=== PATIENT | female | born 1980 | race Caucasian/White ===

== ENCOUNTER → 2017-03-07 | Outpatient (CLI) | payer MEDICARE, OTHER ==
--- NOTE | 2017-03-07 17:00 | US ---
EXAMINATION TYPE: US venous doppler duplex UE LT DATE OF EXAM: 03/07/2017 4:47 PM COMPARISON: NONE CLINICAL HISTORY: M79.632 Pain L forearm. Palpable reddened, area seen x 4 days, very painful SIDE PERFORMED: Left Left Arm: Appears negative for DVT mixed collection seen just under the surface of the skin with obvious tract to skin line, probable abscess. IMPRESSION: 1. Left upper extremity appears without evidence of deep venous thrombosis. 2. There is subcutaneous heterogenous low density collections which could be early phlegmon or develo ping abscess at the level of the palpable region. Correlate with symptoms.
== END ==
LOC: RADUSWWP 16:10
PROVIDERS: ATTEND Family Medicine
DX: M79.632 Pain in left forearm (principal)

== ENCOUNTER 2017-03-09 09:05 | Emergency (ER) | payer MEDICARE, OTHER ==
[2017-03-09 09:23] VITALS: BP 158/94; PULSE 79; RESP 18; TEMP 99
--- NOTE | 2017-03-09 09:40 | ED ---
Skin/Abscess/FB HPI - General Chief complaint: Skin/Abscess/Foreign Body Stated complaint: ABSCESS ON ARM Time Seen by Provider: 03/09/17 09:26 Source: patient, RN notes reviewed Mode of arrival: wheelchair Limitations: no limitations - History of Present Illness Initial comments: 36-year-old female presents emergency Department chief complaint left arm abscess. Patient states started a few days ago. Patient had an ultrasound signs of infection. Patient started Keflex with no improvement. They did not I &D her abscess. Patient states that she has an ALLERGY to sulfa products though she has no history of MRSA. Patient denies fever, chills. She states it is increased redness approximately 2 cm in size. - Related Data Home Medications Medication Instructions Recorded Confirmed Omeprazole [PriLOSEC] 20 mg PO QAM 12/21/15 08/12/16 Pravastatin Sodium [Pravachol] 40 mg PO HS 01/24/16 08/12/16 Cyanocobalamin [Vitamin B-12] 2,000 mcg PO DAILY 01/25/16 08/12/16 Ondansetron HCl [Zofran] 8 mg PO Q8H PRN 01/25/16 08/12/16 Cyclobenzaprine [Flexeril] 10 mg PO TID 07/14/16 08/12/16 Famotidine [Pepcid] 20 mg PO BID 07/14/16 08/12/16 Ferrous Sulfate [Iron (65 MG 325 mg PO BID 07/14/16 08/12/16 Elemental)] Midodrine [ProAmatine] 5 mg PO AC-TID 07/14/16 08/12/16 Nadolol 40 mg PO DAILY 07/14/16 08/12/16 Valproic Acid 500 mg PO Q12H 07/14/16 08/12/16 Warfarin [Coumadin] 2.5 mg PO DAILY 07/14/16 08/12/16 Metoclopramide [Reglan] 10 mg PO ACHS 08/08/16 08/12/16 Morphine Sulfate ER [Ms Contin] 15 mg PO Q12HR 08/08/16 08/12/16 Previous Rx's Medication Instructions Recorded Albuterol Nebulized [Ventolin 2.5 mg INHALATION RT-QID PRN #0 08/12/16 Nebulized] nebu Cyclobenzaprine [Flexeril] 10 mg PO TID #90 tab 08/12/16 Desvenlafaxine Succinate [Pristiq 50 mg PO DAILY #30 tab.er.24h 08/12/16 ER] HYDROcodone/APAP 5-325MG [[place] 1 each PO Q8HR PRN #0 tab 08/12/16 5-325] LORazepam [Ativan] 0.5 mg PO QID #30 tab 08/12/16 Levothyroxine Sodium [Synthroid] 250 mcg PO DAILY #90 tab 08/12/16 Nadolol [Corgard] 40 mg PO DAILY #30 tab 08/12/16 Ondansetron [Zofran] 8 mg PO Q8HR PRN #0 tab 08/12/16 QUEtiapine [SEROquel] 100 mg PO HS #30 tab 08/12/16 Warfarin [Coumadin] 2.5 mg PO 1800 #30 tab 08/12/16 lamoTRIgine [LaMICtal] 100 mg PO TID #90 tab 08/12/16 Acetaminophen-Codeine 300-30mg 1 tab PO Q4H PRN #20 tablet 03/09/17 [Tylenol #3] Clindamycin HCl 300 mg PO Q6HR #40 cap 03/09/17 Allergies Allergy/AdvReac Type Severity Reaction Status Date / Time barium sulfate Allergy Anaphylaxis Verified 08/09/16 06:02 doxepin [Doxepin] Allergy Anaphylaxis Verified 08/09/16 06:02 influenza virus vaccine, Allergy Rash/Hives Verified 08/09/16 06:02 specific [Influenza Virus Vacc,Specific] Iodinated Contrast Media - Allergy Unknown Verified 08/09/16 06:02 Oral and [Iodinated Contrast Media - IV Dye] promethazine HCl Allergy Anaphylaxis Verified 08/09/16 06:02 [From Phenergan] sulfamethoxazole Allergy Rash/Hives Verified 08/09/16 06:02 [From Bactrim] trimethoprim [From Bactrim] Allergy Rash/Hives Verified 08/09/16 06:02 Pertussis Vaccines AdvReac fever/seizu Verified 08/09/16 06:02 re pseudoephedrine AdvReac Chest Pain Verified 08/09/16 06:02 pseudoephedrine HCl AdvReac Chest Pain Verified 08/09/16 06:02 [From Sudafed] Review of Systems ROS Statement: Those systems with pertinent positive or pertinent negative responses have been documented in the HPI. ROS Other: All systems not noted in ROS Statement are negative. Past Medical History Past Medical History: Chest Pain / Angina, CVA/TIA, Deep Vein Thrombosis (DVT), Neurologic Disorder, Syncope, Thyroid Disorder Additional Past Medical History / Comment(s): "Dysautonomia-progressive neurological disorder, lupus/LUPUS ANTICOAGULANTS, ana maria's disease, lymphedema Lt arm, v-tach, pituitary microadenoma. "mitochondrial disease". patent foramen ovale. uti's, falls, orthostatic hypotension/syncope,migraine, polycystic ovarian syndrome,neuropathy. Patient states that she gets "Hemipalegic Migraines" around the time that her period would be. Uterine ablation August 2015. Patient no longer has periods. History of Any Multi-Drug Resistant Organisms: None Reported Past Surgical History: Uterine Ablation Additional Past Surgical History / Comment(s): colonscopy/egd, angie, stress test. Past Anesthesia/Blood Transfusion Reactions: No Reported Reaction Additional Past Anesthesia/Blood Transfusion Reaction / Comment(s): patient states "It takes a lot of anesthesia for my body to react" Past Psychological History: Bipolar, Depression Additional Psychological History / Comment(s): attempted suicide 04/05 Smoking Status: Never smoker Past Alcohol Use History: None Reported Additional Past Alcohol Use History / Comment(s): Patient is a lifelong nonsmoker. She denies any medical marijuana, marijuana, street drug or alcohol use. She is single and does not have any children. Past Drug Use History: None Reported - Past Family History Brother(s) Family Medical History: Hyperlipidemia, Hypertension Additional Family Medical History / Comment(s): Patient states she has 1 brother with no major medical problems. Father Family Medical History: Hyperlipidemia, Hypertension Additional Family Medical History / Comment(s): DAD IS 70 YEARS OLD. Patient states she does not have any contact with her father and does not know his medical history. Mother Family Medical History: Chest Pain / Angina, CVA/TIA, Hyperlipidemia, Hypertension Additional Family Medical History / Comment(s): AGE 62 HAS LUPUS, blood pressure swings high to low General Exam Limitations: no limitations General appearance: alert, in no apparent distress Respiratory exam: Present: normal lung sounds bilaterally. Absent: respiratory distress, wheezes, rales, rhonchi, stridor Cardiovascular Exam: Present: regular rate, normal rhythm, normal heart sounds. Absent: systolic murmur, diastolic murmur, rubs, gallop, clicks Extremities exam: Present: other (Left forearm there is a 2 cm region of erythema with tenderness there is a papule/pustule noted in the center that is minimally fluctuant) Course Vital Signs 03/09/17 03/09/17 09:21 09:28 Temperature 99.0 F 99.0 F Pulse Rate 79 79 Respiratory 18 18 Rate Blood Pressure 158/94 158/94 O2 Sat by Pulse 82 L 98 Oximetry Procedures - Incision & Drainage Indication: Left arm abscess Site: upper extremity (Left forearm) Size (cm): 2 Anesthetic Used: lidocaine 1%, without epi I&D Cleaning Method: Chloroprep Sterile Field Used?: Yes Scalpel Used: #11 I&D Drainage Obtained: Pus, Blood Culture Obtained?: Yes Patient Tolerated Procedure: well, no complications Medical Decision Making - Medical Decision Making 36-year-old female presented for left arm abscess. Patient said increasing redness after starting Keflex. Patient was switched to clindamycin for possible MRSA infection. Patient's abscess was opened she'll continue warm compresses return parameters were discussed. Disposition Clinical Impression: Abscess of left arm Disposition: HOME SELF-CARE Condition: Stable Instructions: Abscess Incision and Drainage (ED) Additional Instructions: Please return to the Emergency Department if symptoms worsen or any other concerns. Continue warm compresses as directed. Prescriptions: Acetaminophen-Codeine 300-30mg [Tylenol #3] 1 tab PO Q4H PRN #20 tablet PRN Reason: pain Clindamycin HCl 300 mg PO Q6HR #40 cap Time of Disposition: 09:40
== END 2017-03-09 10:11 | disposition home or self-care (01) ==
LOC: EC 09:05
DX: L02.414 Cutaneous abscess of left upper limb (principal); F31.9 Bipolar disorder, unspecified; Z79.01 Long term (current) use of anticoagulants; Z79.891 Long term (current) use of opiate analgesic; Z79.899 Other long term (current) drug therapy; Z88.1 Allergy status to other antibiotic agents; Z88.7 Allergy status to serum and vaccine; Z88.8 Allergy status to other drugs, medicaments and biological substances; Z91.041 Radiographic dye allergy status; Z91.048 Other nonmedicinal substance allergy status; Z86.73 Personal history of transient ischemic attack (TIA), and cerebral infarction without residual deficits; Z86.69 Personal history of other diseases of the nervous system and sense organs; Z86.79 Personal history of other diseases of the circulatory system
CPT/HCPCS: 10060; 87070; 87077; 87186; 87205; 99283

== ENCOUNTER 2017-03-11 07:46 | Emergency (ER) | payer MEDICARE, OTHER ==
[2017-03-11 07:51] VITALS: BP 131/85; PULSE 72; RESP 16; TEMP 97
--- NOTE | 2017-03-11 08:49 | ED ---
General Adult HPI - General Chief complaint: Skin/Abscess/Foreign Body Stated complaint: abcess Time Seen by Provider: 03/11/17 08:10 Source: patient, RN notes reviewed Mode of arrival: wheelchair Limitations: no limitations - History of Present Illness Initial comments: Patient's 36-year-old female who presents emergency room today with a chief complaint of an abscess located to the left forearm. She does admit that started one week ago. Has been seen here in the emergency room just 2 days ago had a drain. States she was originally on Keflex is now on clindamycin for the past 2 days. States the area of redness and swelling seems to be getting worse. Patient does admit to pain locally. She denies any other complaints or symptoms. Patient denies any recent fever, chills, shortness of breath, chest pain, back pain, abdominal pain, nausea or vomiting, numbness or tingling, dysuria or hematuria, constipation or diarrhea, headaches or visual changes, or any other complaints. - Related Data Home Medications Medication Instructions Recorded Confirmed Omeprazole [PriLOSEC] 20 mg PO QAM 12/21/15 03/11/17 Pravastatin Sodium [Pravachol] 40 mg PO HS 01/24/16 03/11/17 Cyanocobalamin [Vitamin B-12] 2,000 mcg PO DAILY 01/25/16 03/11/17 Ferrous Sulfate [Iron (65 MG 325 mg PO BID 07/14/16 03/11/17 Elemental)] Acetaminophen Tab [Tylenol Tab] 650 mg PO Q6H PRN 03/09/17 03/11/17 Rivaroxaban [Xarelto] 20 mg PO DAILY 03/09/17 03/11/17 tiZANidine [Zanaflex] 8 mg PO HS 03/09/17 03/11/17 LORazepam [Ativan] 0.5 mg PO QID PRN 03/11/17 03/11/17 Previous Rx's Medication Instructions Recorded Cyclobenzaprine [Flexeril] 10 mg PO TID #90 tab 08/12/16 Levothyroxine Sodium [Synthroid] 250 mcg PO DAILY #90 tab 08/12/16 Nadolol [Corgard] 40 mg PO DAILY #30 tab 08/12/16 Ondansetron [Zofran] 8 mg PO Q8HR PRN #0 tab 08/12/16 Acetaminophen-Codeine 300-30mg 1 tab PO Q4H PRN #20 tablet 03/09/17 [Tylenol #3] Clindamycin HCl 300 mg PO Q6HR #40 cap 03/09/17 Allergies Allergy/AdvReac Type Severity Reaction Status Date / Time barium sulfate Allergy Anaphylaxis Verified 03/11/17 08:36 doxepin [Doxepin] Allergy Anaphylaxis Verified 03/11/17 08:36 influenza virus vaccine, Allergy Rash/Hives Verified 03/11/17 08:36 specific [Influenza Virus Vacc,Specific] Iodinated Contrast Media - Allergy Unknown Verified 03/11/17 08:36 Oral and [Iodinated Contrast Media - IV Dye] promethazine HCl Allergy Anaphylaxis Verified 03/11/17 08:36 [From Phenergan] sulfamethoxazole Allergy Rash/Hives Verified 03/11/17 08:36 [From Bactrim] trimethoprim [From Bactrim] Allergy Rash/Hives Verified 03/11/17 08:36 Pertussis Vaccines AdvReac fever/seizu Verified 03/11/17 08:36 re pseudoephedrine AdvReac Chest Pain Verified 03/11/17 08:36 pseudoephedrine HCl AdvReac Chest Pain Verified 03/11/17 08:36 [From Sudafed] Review of Systems ROS Statement: Those systems with pertinent positive or pertinent negative responses have been documented in the HPI. ROS Other: All systems not noted in ROS Statement are negative. Past Medical History Past Medical History: Chest Pain / Angina, CVA/TIA, Deep Vein Thrombosis (DVT), Neurologic Disorder, Syncope, Thyroid Disorder Additional Past Medical History / Comment(s): "Dysautonomia-progressive neurological disorder, lupus/LUPUS ANTICOAGULANTS, ana maria's disease, lymphedema Lt arm, v-tach, pituitary microadenoma. "mitochondrial disease". patent foramen ovale. uti's, falls, orthostatic hypotension/syncope,migraine, polycystic ovarian syndrome,neuropathy. Patient states that she gets "Hemipalegic Migraines" around the time that her period would be. Uterine ablation August 2015. Patient no longer has periods. History of Any Multi-Drug Resistant Organisms: MRSA Date of last positivie culture/infection: 03/09/17 MDRO Source:: ARM Past Surgical History: Uterine Ablation Additional Past Surgical History / Comment(s): colonscopy/egd, angie, stress test. Past Anesthesia/Blood Transfusion Reactions: No Reported Reaction Additional Past Anesthesia/Blood Transfusion Reaction / Comment(s): patient states "It takes a lot of anesthesia for my body to react" Past Psychological History: Bipolar, Depression Additional Psychological History / Comment(s): attempted suicide 04/05 Smoking Status: Never smoker Past Alcohol Use History: None Reported Additional Past Alcohol Use History / Comment(s): Patient is a lifelong nonsmoker. She denies any medical marijuana, marijuana, street drug or alcohol use. She is single and does not have any children. Past Drug Use History: None Reported - Past Family History Brother(s) Family Medical History: Hyperlipidemia, Hypertension Additional Family Medical History / Comment(s): Patient states she has 1 brother with no major medical problems. Father Family Medical History: Hyperlipidemia, Hypertension Additional Family Medical History / Comment(s): DAD IS 70 YEARS OLD. Patient states she does not have any contact with her father and does not know his medical history. Mother Family Medical History: Chest Pain / Angina, CVA/TIA, Hyperlipidemia, Hypertension Additional Family Medical History / Comment(s): AGE 62 HAS LUPUS, blood pressure swings high to low General Exam - General Exam Comments Initial Comments: General: The patient is awake and alert, in no distress, and does not appear acutely ill. Eye: Pupils are equal, round and reactive to light, extra-ocular movements are intact. No nystagmus. There is normal conjunctiva bilaterally. No signs of icterus. Ears, nose, mouth and throat: There are moist mucous membranes and no oral lesions. Neck: The neck is supple, there is no tenderness or JVD. Cardiovascular: There is a regular rate and rhythm. No murmur, rub or gallop is appreciated. Respiratory: Lungs are clear to auscultation, respirations are non-labored, breath sounds are equal. No wheezes, stridor, rales, or rhonchi. Musculoskeletal: Normal ROM, no tenderness. Strength 5/5. Sensation intact. Pulses equal bilaterally 2+. Neurological: A&O x 3. CN II-XII intact, There are no obvious motor or sensory deficits. Coordination appears grossly intact. Speech is normal. Skin: Abscess located to the posterior aspect of the left forearm. Redness measures approximately 3 cm across largest portion. There is no lymphangitic streaking. There is mild firmness centrally. No fluctuance Psychiatric: Cooperative, appropriate mood & affect, normal judgment. Limitations: no limitations Course Vital Signs 03/11/17 07:47 Temperature 97.0 F L Pulse Rate 72 Respiratory 16 Rate Blood Pressure 131/85 O2 Sat by Pulse 100 Oximetry Medical Decision Making - Medical Decision Making Case discussed in detail with attending physician Dr. Grier. Patient's cultures reviewed does show most likely MRSA infection. Patient does have Bactrim ALLERGY. Is currently on Clinda for less than 2 days at this time. At this time was discussed about options of admission with IV antibiotics versus giving another 24 hours of antibiotics orally to see if there is improvement. Didn't agreement to try another 24 hours of oral antibiotic. Patient's area of redness has been outlined. Advised that if redness is outside of this area to return to emergency room for admission and IV antibiotics. Disposition Clinical Impression: Abscess Disposition: HOME SELF-CARE Condition: Good Instructions: Abscess (ED) Additional Instructions: Please return to emergency room if area of redness is outside of marked area. Please continue previously prescribed medications. Please return for any other concerns. Time of Disposition: 08:48
== END 2017-03-11 09:01 | disposition home or self-care (01) ==
LOC: EC 07:46
DX: L02.414 Cutaneous abscess of left upper limb (principal); Z88.7 Allergy status to serum and vaccine; Z88.8 Allergy status to other drugs, medicaments and biological substances; Z91.041 Radiographic dye allergy status; Z88.2 Allergy status to sulfonamides; Z86.718 Personal history of other venous thrombosis and embolism; Z86.14 Personal history of Methicillin resistant Staphylococcus aureus infection; Z79.01 Long term (current) use of anticoagulants; Z79.899 Other long term (current) drug therapy
CPT/HCPCS: 99282

== ENCOUNTER 2017-03-15 17:19 | Inpatient (IN) | payer MEDICARE, OTHER ==
[2017-03-15] MEDS ORDERED: ACETAMINOPHEN TAB 500 MG TAB PO STA (17:52)
[2017-03-15] MEDS ORDERED: NALOXONE 0.4 MG/ML 1 ML VIAL IV PRN (17:54)
[2017-03-15] MEDS ORDERED: ACETAMINOPHEN TAB 325 MG TAB PO PRN (17:54)
[2017-03-15] MEDS ORDERED: IBUPROFEN 400 MG TAB PO PRN (17:54)
--- NOTE | 2017-03-15 17:54 | ED ---
General Adult HPI - General Chief complaint: Recheck/Abnormal Lab/Rx Stated complaint: Mrsa Infection Time Seen by Provider: 03/15/17 17:45 Source: patient, RN notes reviewed Mode of arrival: wheelchair Limitations: physical limitation - History of Present Illness Initial comments: 36-year-old female presented emergency department for left arm infection. Patient's had multiple ER visits for this. Patient was initially placed on Keflex by her primary care physician switched to clindamycin in the emergency Department and had culture taken. This was tested positive for MRSA. Patient had recheck a few days after and was redness worsened and continues to worsen. Patient's son back in emergency department for admission secondary to failed outpatient treatment. Patient has developed with fever. - Related Data Home Medications Medication Instructions Recorded Confirmed Omeprazole [PriLOSEC] 20 mg PO QAM 12/21/15 03/11/17 Pravastatin Sodium [Pravachol] 40 mg PO HS 01/24/16 03/11/17 Cyanocobalamin [Vitamin B-12] 2,000 mcg PO DAILY 01/25/16 03/11/17 Ferrous Sulfate [Iron (65 MG 325 mg PO BID 07/14/16 03/11/17 Elemental)] Acetaminophen Tab [Tylenol Tab] 650 mg PO Q6H PRN 03/09/17 03/11/17 Rivaroxaban [Xarelto] 20 mg PO DAILY 03/09/17 03/11/17 tiZANidine [Zanaflex] 8 mg PO HS 03/09/17 03/11/17 LORazepam [Ativan] 0.5 mg PO QID PRN 03/11/17 03/11/17 Previous Rx's Medication Instructions Recorded Cyclobenzaprine [Flexeril] 10 mg PO TID #90 tab 08/12/16 Levothyroxine Sodium [Synthroid] 250 mcg PO DAILY #90 tab 08/12/16 Nadolol [Corgard] 40 mg PO DAILY #30 tab 08/12/16 Ondansetron [Zofran] 8 mg PO Q8HR PRN #0 tab 08/12/16 Acetaminophen-Codeine 300-30mg 1 tab PO Q4H PRN #20 tablet 03/09/17 [Tylenol #3] Clindamycin HCl 300 mg PO Q6HR #40 cap 03/09/17 Allergies Allergy/AdvReac Type Severity Reaction Status Date / Time barium sulfate Allergy Anaphylaxis Verified 03/11/17 08:36 doxepin [Doxepin] Allergy Anaphylaxis Verified 03/11/17 08:36 influenza virus vaccine, Allergy Rash/Hives Verified 03/11/17 08:36 specific [Influenza Virus Vacc,Specific] Iodinated Contrast Media - Allergy Unknown Verified 03/11/17 08:36 Oral and [Iodinated Contrast Media - IV Dye] promethazine HCl Allergy Anaphylaxis Verified 03/11/17 08:36 [From Phenergan] sulfamethoxazole Allergy Rash/Hives Verified 03/11/17 08:36 [From Bactrim] trimethoprim [From Bactrim] Allergy Rash/Hives Verified 03/11/17 08:36 Pertussis Vaccines AdvReac fever/seizu Verified 03/11/17 08:36 re pseudoephedrine AdvReac Chest Pain Verified 03/11/17 08:36 pseudoephedrine HCl AdvReac Chest Pain Verified 03/11/17 08:36 [From Sudafed] Review of Systems ROS Statement: Those systems with pertinent positive or pertinent negative responses have been documented in the HPI. ROS Other: All systems not noted in ROS Statement are negative. Past Medical History Past Medical History: Chest Pain / Angina, CVA/TIA, Deep Vein Thrombosis (DVT), Neurologic Disorder, Syncope, Thyroid Disorder Additional Past Medical History / Comment(s): "Dysautonomia-progressive neurological disorder, lupus/LUPUS ANTICOAGULANTS, ana maria's disease, lymphedema Lt arm, v-tach, pituitary microadenoma. "mitochondrial disease". patent foramen ovale. uti's, falls, orthostatic hypotension/syncope,migraine, polycystic ovarian syndrome,neuropathy. Patient states that she gets "Hemipalegic Migraines" around the time that her period would be. Uterine ablation August 2015. Patient no longer has periods. History of Any Multi-Drug Resistant Organisms: MRSA Date of last positivie culture/infection: 03/09/17 MDRO Source:: ARM Past Surgical History: Uterine Ablation Additional Past Surgical History / Comment(s): colonscopy/egd, angie, stress test. Past Anesthesia/Blood Transfusion Reactions: No Reported Reaction Additional Past Anesthesia/Blood Transfusion Reaction / Comment(s): patient states "It takes a lot of anesthesia for my body to react" Past Psychological History: Bipolar, Depression Additional Psychological History / Comment(s): attempted suicide 04/05 Smoking Status: Never smoker Past Alcohol Use History: None Reported Additional Past Alcohol Use History / Comment(s): Patient is a lifelong nonsmoker. She denies any medical marijuana, marijuana, street drug or alcohol use. She is single and does not have any children. Past Drug Use History: None Reported - Past Family History Brother(s) Family Medical History: Hyperlipidemia, Hypertension Additional Family Medical History / Comment(s): Patient states she has 1 brother with no major medical problems. Father Family Medical History: Hyperlipidemia, Hypertension Additional Family Medical History / Comment(s): DAD IS 70 YEARS OLD. Patient states she does not have any contact with her father and does not know his medical history. Mother Family Medical History: Chest Pain / Angina, CVA/TIA, Hyperlipidemia, Hypertension Additional Family Medical History / Comment(s): AGE 62 HAS LUPUS, blood pressure swings high to low General Exam Limitations: physical limitation General appearance: alert, in no apparent distress Respiratory exam: Present: normal lung sounds bilaterally. Absent: respiratory distress, wheezes, rales, rhonchi, stridor Cardiovascular Exam: Present: regular rate, normal rhythm, normal heart sounds. Absent: systolic murmur, diastolic murmur, rubs, gallop, clicks Extremities exam: Present: other (Left forearm there is small abscess with surrounding erythema approximately 6 cm in diameter) Skin exam: Present: warm, dry Course Vital Signs 03/15/17 17:29 Temperature 100.2 F H Pulse Rate 93 Respiratory 18 Rate Blood Pressure 144/92 O2 Sat by Pulse 98 Oximetry Disposition Clinical Impression: Cellulitis of left arm, Abscess, Failure of outpatient treatment Disposition: ADMITTED IP TO THIS HOSP Condition: Fair
[2017-03-15] MEDS ORDERED: LORazepam 0.5 MG TAB PO PRN (17:55)
[2017-03-15] MEDS ORDERED: Acetaminophen-Codeine 300-30mg TAB PO PRN (17:55)
[2017-03-15] MEDS ORDERED: IV VANCOMYCIN PER PHARMACY 1 EACH MISC MISCELLANE PRN (17:56)
[2017-03-15 18:27] LABS: Basophils # (A) 0.1 k/uL (0-0.2); Basophils % (A) 1 %; CH 27.8; CHCM 33.1; Eosinophils # (A) 0.2 k/uL (0-0.7); Eosinophils % (A) 2 %; HCT 40.5 % (34.0-46.0); HDW 2.91; HGB 13.6 gm/dL (11.4-16.0); Luc % (Auto) 2; Lymphocytes # (A) 2.4 k/uL (1.0-4.8); Lymphocytes % (A) 22 %; MCH 28.3 pg (25.0-35.0); MCHC 33.5 g/dL (31.0-37.0); MCV 84.3 fL (80.0-100.0); Mean Platelet Volume 6.9; Monocytes # (A) 0.6 k/uL (0-1.0); Monocytes % (A) 6 %; Neutrophils # (A) 7.5 k/uL (1.3-7.7); Neutrophils % (A) 68 %; RBC 4.81 m/uL (3.80-5.40); RDW 15.4 % (11.5-15.5); WBC (Perox) 10.91
[2017-03-15] MEDS ORDERED: VANCOMYCIN 1,750 MG in SODIUM CHLORIDE 0.9% 250 ML IVPB ONE (18:30)
[2017-03-15 18:37] LABS: Anion Gap 17 mmol/L; Blood Urea Nitrogen 9 mg/dL (7-17); Calcium 10.3 mg/dL (8.4-10.2); Carbon Dioxide 22 mmol/L (22-30); Chloride 102 mmol/L (98-107); Glucose 98 mg/dL (74-99); Non-African American GFR(MDRD) >60 (>60 ml/min/1.73 sqM); Potassium 3.9 mmol/L (3.5-5.1); Sodium 141 mmol/L (137-145)
[2017-03-15] MEDS ORDERED: SODIUM CHLORIDE 0.9% 1,000 ML IV SCH (19:00)
[2017-03-15] MEDS: SODIUM CHLORIDE 0.9% 500 ML IV SCH ×6 (19:00→21:00)
[2017-03-15] MEDS: AMPICILLIN-SULBACTAM 3 GM in SODIUM CHLORIDE 0.9% 100 ML IVPB SCH ×2 (20:40→23:22)
[2017-03-15] MEDS: tiZANidine 4 MG TAB PO SCH (20:40)
[2017-03-15] MEDS: PRAVASTATIN SODIUM 40 MG TAB PO SCH (20:40)
[2017-03-15 21:58] VITALS: BMI 42.0
[2017-03-16] MEDS: SODIUM CHLORIDE 0.9% 1,000 ML IV SCH ×4 (01:56→23:25)
[2017-03-16] MEDS: LEVOTHYROXINE 125 MCG TAB PO SCH (05:35)
[2017-03-16] MEDS: VANCOMYCIN 1,750 MG in SODIUM CHLORIDE 0.9% 250 ML IVPB SCH ×2 (05:35→17:26)
[2017-03-16] MEDS: ONDANSETRON 4 MG TAB PO PRN ×2 (06:09→19:58)
[2017-03-16] MEDS: PANTOPRAZOLE 40 MG TABLET PO SCH (07:38)
[2017-03-16] MEDS: NADOLOL 20 MG TAB PO SCH (07:38)
[2017-03-16] MEDS: AMPICILLIN-SULBACTAM 3 GM in SODIUM CHLORIDE 0.9% 100 ML IVPB SCH (07:41)
[2017-03-16] MEDS: RIVAROXABAN 10 MG TAB PO SCH (08:35)
[2017-03-16] MEDS: CYANOCOBALAMIN 500 MCG TAB PO SCH (12:05)
--- NOTE | 2017-03-16 13:02 | HP ---
DATE OF ADMISSION: Patient is a 36-year-old, came in with left forearm infection. Patient has an abscess, which was drained recently in the ER and patient started having a little bit of cellulitis. Patient denied any IV drug use, although I am obtaining serum drug screen. I will also obtain a hepatitis panel. Patient was initially given Keflex by the primary care physician and she was subsequently switched to clindamycin which is approximate and as patient came to ER with a small abscess which was drained and patient subsequently was given doxycycline after the results of MRSA as patient is allergic to BACTRIM which was done appropriately and apparently her symptoms did not improve and her redness apparently worsened, which is better now and patient is also found to have lactic acid and mild low grade fever. Patient was subsequently admitted after blood cultures. I am counseling Infectious Disease and increasing the IV fluids. Patient was having some pain in that area which is burning pain. REVIEW OF SYSTEMS: CONSTITUTIONAL: No fever, no malaise, no fatigue. HEENT: No recent visual problems or hearing problems. Denied any sore throat. CARDIOVASCULAR: No chest pain, orthopnea, PND, no palpitations, no syncope. PULMONARY: No shortness of breath, no cough, no hemoptysis. GASTROINTESTINAL: Patient was complaining of diarrhea with questionable episodes of blood in the stools but will watch for blood in the stools as patient is on Xarelto for lupus. I will not discontinue Xarelto but watch her and if she continues to have bleed, then Xarelto needs to be continued at that time. NEUROLOGICAL: No headaches, no weakness, no numbness. HEMATOLOGICAL: Denies any bleeding or petechiae. GENITOURINARY: Denies any burning micturition, frequency, or urgency. MUSCULOSKELETAL/RHEUMATOLOGICAL: Denies any joint pain, swelling, or any muscle pain. ENDOCRINE: Denies any polyuria or polydipsia. DERMATOLOGIC: As described in HPI. The rest of the 14 point review of systems is negative. Home medications include: 1. Omeprazole. 2. Pravastatin. 3. Cyanocobalamin. 4. Ferrous sulfate. 5. Xarelto. 6. Zanaflex. 7. Lorazepam. 8. Cyclobenzaprine. 9. Levothyroxine. 10. Nadolol. 11. Ondansetron. 12. Acetaminophen-Codeine. 13. Clindamycin. ALLERGIES: Allergic to BARIUM, DOXEPIN, INFLUENZA VIRUS, IODINATED RADIOCONTRAST, PROMETHAZINE and BACTRIM, PSEUDOEPHEDRINE. Past medical history is quite extensive with DVT in the past and patient has lupus syndrome, hypertension, syncopes in the past, hypothyroidism, uterine ablation surgery, patient has bipolar depression and significant psychiatric issues where she was admitted multiple times on the psychiatric floor as well as here in the regular medical floor. Patient denied any smoking presently or alcohol abuse or any drug abuse presently. FAMILY HISTORY: Brother had hyperlipidemia, hypertension, father had hyperlipidemia, hypertension, mother had multiple medical problems, was known to my service, CVA, TIA, hyperlipidemia, lupus. PHYSICAL EXAMINATION: Temperature 100.2, pulse of 93, respiratory rate of 18, blood pressure is 144/92, saturating at 98% on room air. GENERAL: The patient is alert and oriented x3, not in any acute distress. Well developed, well nourished. HEENT: Pupils are round and equally reacting to light. EOMI. No scleral icterus. No conjunctival pallor. Normocephalic, atraumatic. No pharyngeal erythema. No thyromegaly. CARDIOVASCULAR: S1 and S2 present. No murmurs, rubs, or gallops. PULMONARY: Chest is clear to auscultation, no wheezing or crackles. ABDOMEN: Soft, nontender, nondistended, normoactive bowel sounds. No palpable organomegaly. MUSCULOSKELETAL: No joint swelling or deformity. NEUROLOGICAL: Gross neurological examination did not reveal any focal deficits. SKIN: No rashes. LEFT FOREARM: In the mid-forearm area there is very minimally area of redness and there is a small site where abscess was drained. No obvious abscess at this point of time. LABORATORY DATA: CBC, CMP are abnormal for elevated WBC count of 11,000. When she came in, her plasma lactic acid is 3.2, now came down to 2.9, high normal calcium of 10.3, which will just monitor for now. ASSESSMENT AND PLAN: 1. Sepsis secondary to left arm abscess and cellulitis for which patient is on vancomycin. Zosyn will be discontinued. Patient has methicillin-resistant Staphylococcus aureus. 2. History of lupus. 3. Hypothyroidism. 4. Hyperlipidemia. 5. Hypertension. 6. Diarrhea probably related to antibiotics. For above mentioned chronic medical problems, I will go ahead and continue home medications. Infectious Disease will be consulted because of MRSA and her allergic reaction to BACTRIM and patient did not have improvement with doxycycline. Patient may need 1 or 2 days of antibiotics and patient will be continued on IV fluids because of her severe sepsis and once the sepsis improves, patient may be able to go on doxycycline as she will be received 2 or 3 days of IV antibiotics by then. Linezolid may be another choice if her insurance agrees to pay.
[2017-03-16 14:45] LABS: Hepatitis B Surface Ag Index 0.08
[2017-03-16 14:51] LABS: Hepatitis B Core IgM Index 0.05
[2017-03-16 15:03] LABS: Hepatitis C Virus IgG Index 0.01
[2017-03-16 15:05] LABS: Hepatitis C Virus IgG Ab Negative (Negative)
[2017-03-16] MEDS: PRAVASTATIN SODIUM 40 MG TAB PO SCH (21:31)
[2017-03-16] MEDS: tiZANidine 4 MG TAB PO SCH (21:31)
[2017-03-16] MEDS: SUCRALFATE 1 GM TAB PO SCH (22:23)
[2017-03-16] MEDS: MUPIROCIN 2% OINT 22 GM TUBE TOPICAL SCH (22:23)
--- NOTE | 2017-03-16 23:20 | P.CONS ---
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 She started with what appears to be a pustule on the left forearm. It was swollen and uncomfortable. She densely presented when she was having a low-grade fever. Ultrasound was performed that failed to reveal evidence of a deep venous thrombosis and she has a history of prior upper extremity DVT. At that time she is with evidence of a patent foramen ovale and had a stroke related to the extremity DVT. Fortunately no DVT is seen at this time. However ultrasound did show evidence of the phlegmon valving into abscess. She was treated originally with cephalexin which did not have any impact. Been switched to clindamycin and then doxycycline. She failed his antibiotic therapy and has now been admitted for further intervention. Receiving vancomycin therapy with no difficulties. Is feeling somewhat better. Denies high-grade fever, chills or rigors. The arm is still somewhat uncomfortable especially to manipulation. She denying significant pain in the left axilla. 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 She has a lupus-like syndrome. And has progressive dysautonomia which is directly affecting her ability to ambulate. She also has a history of hemiplegic migraines but not current. Review of Systems 36-year-old woman who does have obesity and relates that she's had a marked progressive decline of her status with her underlying mitochondrial disease. 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 She does have underlying mental illness also. HEENT:Denies headache or acute visual change. Denies sinus or mouth discomforts. Denies neck stiffness or pain. Denies significant oral cavity pain. Denies difficulty on swallowing. Lungs: Denies significant shortness of breath, cough, sputum production, or hemoptysis. Cardiovascular: Denies significant shortness of breath, chest pain, chest wall pain, orthopnea, dyspnea on exertion, syncope Gastrointestinal:Denies nausea, vomiting, diarrhea, constipation, hematemesis, melena, hematochezia. No no significant change of bowel habit noticed. Musculoskeletal: denies significant myalgias or arthralgias. No new joint swelling. Denies new back pain. Skin: Lesion on the left arm without other skin lesions. Neuro: History of migraine headaches. Not current. Progressive weakness. Progressive difficulty with ambulation. Psychiatric: History of anxiety and depression. Endocrine: Chronic fatigue and increasing weight gain over time Past Medical History Past Medical History: Chest Pain / Angina, CVA/TIA, Deep Vein Thrombosis (DVT), Neurologic Disorder, Syncope, Thyroid Disorder Additional Past Medical History / Comment(s): "Dysautonomia-progressive neurological disorder, lupus/LUPUS ANTICOAGULANTS, ana maria's disease, lymphedema Lt arm, v-tach, pituitary microadenoma. "mitochondrial disease". patent foramen ovale. uti's, falls, orthostatic hypotension/syncope,migraine, polycystic ovarian syndrome,neuropathy. Uterine ablation August 2015. Patient no longer has periods. History of Any Multi-Drug Resistant Organisms: MRSA Year Discovered:: 03/09/17 MDRO Source:: LEFT ARM Past Surgical History: Uterine Ablation Additional Past Surgical History / Comment(s): colonscopy/egd, angie, stress test. Past Anesthesia/Blood Transfusion Reactions: No Reported Reaction Additional Past Anesthesia/Blood Transfusion Reaction / Comm: patient states " It takes a lot of anesthesia for my body to react" Past Psychological History: Bipolar, Depression Additional Psychological History / Comment(s): attempted suicide 04/05. 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 Has traveled to [place]. No animal exposures. No tobacco or alcohol use. Single without children. Does not relate to other family members with her genetic disorder Smoking Status: Never smoker Past Alcohol Use History: None Reported Additional Past Alcohol Use History / Comment(s): Patient is a lifelong nonsmoker. She denies any medical marijuana, marijuana, street drug or alcohol use. She is single and does not have any children. Past Drug Use History: None Reported - Past Family History Brother(s) Family Medical History: Diabetes Mellitus, Hyperlipidemia, Hypertension Additional Family Medical History / Comment(s): Patient states she has 1 brother with no major medical problems. Father Family Medical History: Hyperlipidemia, Hypertension Additional Family Medical History / Comment(s): DAD IS 70 YEARS OLD. Patient states she does not have any contact with her father and does not know his medical history. Mother Family Medical History: Chest Pain / Angina, CVA/TIA, Hyperlipidemia, Hypertension Additional Family Medical History / Comment(s): AGE 62 HAS LUPUS, blood pressure swings high to low Medications and Allergies Home Medications and Allergies Comment(s): Current Medications Acetaminophen (Tylenol Tab) 650 mg PO Q6HR PRN PRN Reason: Mild Pain or Fever > 100.5 Acetaminophen/Codeine Phosphate (Tylenol #3) 1 each PO Q4H PRN PRN Reason: pain Last Admin: 03/16/17 14:41 Dose: 1 each Cyanocobalamin (Vitamin B-12) 1,000 mcg PO DAILY@1200 [facility] Last Admin: 03/16/17 12:05 Dose: 1,000 mcg Vancomycin HCl 1,750 mg/ (Sodium Chloride) 250 mls @ 125 mls/hr IVPB Q12H [facility] Last Admin: 03/16/17 17:26 Dose: 125 mls/hr Sodium Chloride (Saline 0.9%) 1,000 mls @ 125 mls/hr IV .Q8H [facility] Last Admin: 03/16/17 17:26 Dose: 125 mls/hr Levothyroxine Sodium (Synthroid) 250 mcg PO 0630 [facility] Last Admin: 03/16/17 05:35 Dose: 250 mcg Lorazepam (Ativan) 0.5 mg PO QID PRN PRN Reason: Anxiety Mupirocin (Bactroban Oint) 1 applic TOPICAL TID [facility] Last Admin: 03/16/17 22:23 Dose: 1 applic Nadolol (Corgard) 40 mg PO DAILY [facility] Last Admin: 03/16/17 07:38 Dose: 40 mg Naloxone HCl (Narcan) 0.2 mg IV Q2M PRN PRN Reason: Opioid Reversal Ondansetron HCl (Zofran) 8 mg PO Q8HR PRN PRN Reason: Nausea And Vomiting Last Admin: 03/16/17 19:58 Dose: 8 mg Pantoprazole Sodium (Protonix) 40 mg PO AC-BRKFST [facility] Last Admin: 03/16/17 07:38 Dose: 40 mg Pravastatin Sodium (Pravachol) 40 mg PO HS [facility] Last Admin: 03/16/17 21:31 Dose: 40 mg Rivaroxaban (Xarelto) 20 mg PO DAILY [facility] Last Admin: 03/16/17 08:35 Dose: 20 mg Sucralfate (Carafate) 1 gm PO ACHS [facility] Last Admin: 03/16/17 22:23 Dose: 1 gm Tizanidine HCl (Zanaflex) 8 mg PO HS [facility] Last Admin: 03/16/17 21:31 Dose: 8 mg Home Medications Medication Instructions Recorded Confirmed Type Pravastatin Sodium [Pravachol] 40 mg PO HS 01/24/16 03/15/17 History Cyanocobalamin [Vitamin B-12] 2,000 mcg PO DAILY 01/25/16 03/15/17 History Ferrous Sulfate [Iron (65 MG 325 mg PO BID 07/14/16 03/15/17 History Elemental)] Rivaroxaban [Xarelto] 20 mg PO DAILY 03/09/17 03/15/17 History tiZANidine [Zanaflex] 8 mg PO HS 03/09/17 03/15/17 History LORazepam [Ativan] 0.5 mg PO QID PRN 03/11/17 03/15/17 History Allergies Allergy/AdvReac Type Severity Reaction Status Date / Time barium sulfate Allergy Anaphylaxis Verified 03/15/17 18:19 doxepin [Doxepin] Allergy Anaphylaxis Verified 03/15/17 18:19 influenza virus vaccine, Allergy Rash/Hives Verified 03/15/17 18:19 specific [Influenza Virus Vacc,Specific] Iodinated Contrast Media - Allergy Swelling Verified 03/15/17 22:08 Oral and [Iodinated Contrast Media - IV Dye] promethazine HCl Allergy Anaphylaxis Verified 03/15/17 18:19 [From Phenergan] sulfamethoxazole Allergy Rash/Hives Verified 03/15/17 18:19 [From Bactrim] trimethoprim [From Bactrim] Allergy Rash/Hives Verified 03/15/17 18:19 Pertussis Vaccines AdvReac fever/seizu Verified 03/15/17 18:19 re pseudoephedrine AdvReac Chest Pain Verified 03/15/17 18:19 pseudoephedrine HCl AdvReac Chest Pain Verified 03/15/17 18:19 [From Sudafed] Physical Exam Vitals: Vital Signs Temp Pulse Resp BP Pulse Ox 03/16/17 15:00 97.9 F 63 24 122/78 98 03/16/17 07:00 97.5 F L 73 20 150/98 100 03/16/17 01:20 113/68 03/16/17 00:00 70 16 Intake and Output 03/16/17 03/16/17 03/17/17 14:59 22:59 06:59 Other: # Voids 1 # Bowel Movements 1 Weight 114.5 kg Patient Weight 03/17/17 06:59 Weight 114.5 kg Pleasant 36-year-old woman who suffers from obesity seems to be comfortable. HEENT: Anicteric conjunctiva are pink and moist nasal mucosa grossly intact without significant lesions, there is no thrush. Neck: The neck is supple without significant lymphadenopathy or thyromegaly. Lungs: Symmetrical air entry. Few basilar crackles. No bronchial sounds. No egophony Heart: Regular rate and rhythm with an audible S1-S2, no S3 soft S4. There is no significant murmur click or rub, PMI was nondisplaced. Abdomen: Obese, Positive bowel sounds soft and nontender without palpable masses or organomegaly. There was no guarding or rebound. Extremities: IV site upper extremities without difficulty. Left arm has evidence of the abscess site that is been drained on the left forearm. There is still significant induration and tenderness. There is minimal erythema. There is no Civic and epitrochlear axillary lymphadenopathy. Lymph nodes are abnormal. There is not a significant amount of ascending or streaking erythema. She has no tenderness in the axilla. Rest of the skin without open lesions. She has chronic lower extremity edema. Likely has some lipedema. Neuro: Awake alert oriented to person place and time. Sniffy and lower extremity weakness. His dysautonomia the lower extremities and developed spasticity when the lower extremities are manipulated. Results CBC & Chem 7: 03/15/17 18:15 03/15/17 18:15 Labs: Abnormal Lab Results - Last 24 Hours (Table) 03/15/17 03/16/17 Range/Units 22:46 06:01 Plasma Lactic Acid Joce 2.4 H* 2.9 H* (0.7-2.0) mmol/L Laboratory Results WBC 11.0 k/uL (3.8-10.6) H 03/15/17 18:15 RBC 4.81 m/uL (3.80-5.40) 03/15/17 18:15 Hgb 13.6 gm/dL (11.4-16.0) 03/15/17 18:15 Hct 40.5 % (34.0-46.0) 03/15/17 18:15 MCV 84.3 fL (80.0-100.0) 03/15/17 18:15 MCH 28.3 pg (25.0-35.0) 03/15/17 18:15 MCHC 33.5 g/dL (31.0-37.0) 03/15/17 18:15 RDW 15.4 % (11.5-15.5) 03/15/17 18:15 Plt Count 397 k/uL (150-450) 03/15/17 18:15 Neutrophils % 68 % 03/15/17 18:15 Lymphocytes % 22 % 03/15/17 18:15 Monocytes % 6 % 03/15/17 18:15 Eosinophils % 2 % 03/15/17 18:15 Basophils % 1 % 03/15/17 18:15 Neutrophils # 7.5 k/uL (1.3-7.7) 03/15/17 18:15 Lymphocytes # 2.4 k/uL (1.0-4.8) 03/15/17 18:15 Monocytes # 0.6 k/uL (0-1.0) 03/15/17 18:15 Eosinophils # 0.2 k/uL (0-0.7) 03/15/17 18:15 Basophils # 0.1 k/uL (0-0.2) 03/15/17 18:15 Sodium 141 mmol/L (137-145) 03/15/17 18:15 Potassium 3.9 mmol/L (3.5-5.1) 03/15/17 18:15 Chloride 102 mmol/L (98-107) 03/15/17 18:15 Carbon Dioxide 22 mmol/L (22-30) 03/15/17 18:15 Anion Gap 17 mmol/L 03/15/17 18:15 BUN 9 mg/dL (7-17) 03/15/17 18:15 Creatinine 0.74 mg/dL (0.52-1.04) 03/15/17 18:15 Est GFR (MDRD) Af Amer >60 (>60 ml/min/1.73 sqM) 03/15/17 18:15 Est GFR (MDRD) Non-Af >60 (>60 ml/min/1.73 sqM) 03/15/17 18:15 Glucose 98 mg/dL (74-99) 03/15/17 18:15 Plasma Lactic Acid Joce 2.9 mmol/L (0.7-2.0) H* 03/16/17 06:01 Calcium 10.3 mg/dL (8.4-10.2) H 03/15/17 18:15 Hepatitis A IgM Ab NEGATIVE 03/15/17 18:15 Hep Bs Antigen Negative 03/15/17 18:15 Hep B Core IgM Ab NEGATIVE 03/15/17 18:15 Hep C IgG Ab Negative (Negative) 03/15/17 18:15 Microbiology 03/15/17 18:15 Blood Blood Culture - Preliminary No Growth after 24 hours 03/09/2017 wound culture shows evidence of MRSA with vancomycin ELISEO of 1 Assessment and Plan (1) Abscess of left arm Narrative/Plan: 36-year-old female who is a very complex past medical history regarding her mitochondrial disorder, autoimmune disease with lupus, who is developed an abscess on her left forearm. It admission she was having fever, leukocytosis and elevated lactic acid. Lactic acid has not significantly changed despite resuscitation. It is likely the elevated lactic acidosis is due to underlying mitochondrial disease rather than sepsis. Patient is showing some improvement this point in time. Topical therapy with mupirocin will be added. This may allow some improvement in discomfort. Elevate the arm and may use a cool compress if she tolerates Antibiotic therapy with vancomycin while she is here. When she has a good clinical response and can be changed to tetracycline orally to finish her course of therapy. She is not a candidate for Zyvox due to her other medications. She does have difficulties with GERD and Carafate is added to improve her symptoms. 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
[2017-03-16 23:30] VITALS: PULSE 62; RESP 16
[2017-03-17] MEDS: LEVOTHYROXINE 125 MCG TAB PO SCH (05:38)
[2017-03-17] MEDS: VANCOMYCIN 1,750 MG in SODIUM CHLORIDE 0.9% 250 ML IVPB SCH (05:38)
[2017-03-17 07:28] VITALS: BP 99/64; TEMP 98.1
[2017-03-17] MEDS: NADOLOL 20 MG TAB PO SCH (08:01)
[2017-03-17] MEDS: RIVAROXABAN 10 MG TAB PO SCH (08:01)
[2017-03-17] MEDS: MUPIROCIN 2% OINT 22 GM TUBE TOPICAL SCH (08:01)
[2017-03-17] MEDS: PANTOPRAZOLE 40 MG TABLET PO SCH (08:01)
[2017-03-17] MEDS: SUCRALFATE 1 GM TAB PO SCH ×2 (08:01→11:05)
[2017-03-17] MEDS: ONDANSETRON 4 MG TAB PO PRN (08:23)
[2017-03-17] MEDS: SODIUM CHLORIDE 0.9% 1,000 ML IV SCH (08:27)
[2017-03-17 09:11] LABS: ALT 17 U/L (9-52); AST 36 U/L (14-36); Alkaline Phosphatase 75 U/L (38-126); Anion Gap 12 mmol/L; Blood Urea Nitrogen 8 mg/dL (7-17); Calcium 8.7 mg/dL (8.4-10.2); Carbon Dioxide 18 mmol/L (22-30); Chloride 111 mmol/L (98-107); Glucose 136 mg/dL (74-99); Non-African American GFR(MDRD) >60 (>60 ml/min/1.73 sqM); Sodium 141 mmol/L (137-145); Total Bilirubin 0.7 mg/dL (0.2-1.3); Total Protein 6.7 g/dL (6.3-8.2)
[2017-03-17 09:48] LABS: CH 27.7; CHCM 32.7; HDW 2.86; HGB 11.6 gm/dL (11.4-16.0); MCHC 34.2 g/dL (31.0-37.0); RDW 15.5 % (11.5-15.5); WBC 8.2 k/uL (3.8-10.6)
[2017-03-17 09:49] LABS: Potassium 4.2 mmol/L (3.5-5.1)
[2017-03-17] MEDS: CYANOCOBALAMIN 500 MCG TAB PO SCH (11:05)
[2017-03-18] MEDS ORDERED: VANCOMYCIN TROUGH DUE 1 EACH MISC MISCELLANE ONE (05:00)
--- NOTE | 2017-03-18 11:43 | DS ---
DATE OF ADMISSION: 03/15/2017 DATE OF DISCHARGE: 03/17/2017 A 36-year-old admitted with left forearm infection, which was drained and patient has surrounding cellulitis which significantly improved. There is no cellulitis at all today. Patient will be discharged on doxycycline for 7 more days as recommended by Dr. Hansen and patient has other issues including lactic acidosis which was believed not secondary to sepsis, but rather secondary to mitochondrial disease. Patient has highly elevated TSH and normal T4. Two possibilities are: 1. Sick euthyroid syndrome. 2. Continued hypothyroidism. She will need a repeat TSH in about a month. If it continues to be elevated, patient will need to increase the dose. Patient is 250 mcg levothyroxine already. My suspicion is high for noncompliance. Patient will benefit from follow up with Endocrinology. Patient will be discharged today. Patient was seen and examined on the day of discharge. Vitals are stable. PHYSICAL EXAMINATION: GENERAL: The patient is alert and oriented x3, not in any acute distress. Well developed, well nourished. HEENT: Pupils are round and equally reacting to light. EOMI. No scleral icterus. No conjunctival pallor. Normocephalic, atraumatic. No pharyngeal erythema. No thyromegaly. CARDIOVASCULAR: S1 and S2 present. No murmurs, rubs, or gallops. PULMONARY: Chest is clear to auscultation, no wheezing or crackles. ABDOMEN: Soft, nontender, nondistended, normoactive bowel sounds. No palpable organomegaly. MUSCULOSKELETAL: No joint swelling or deformity. EXTREMITIES: No cyanosis, clubbing, or pedal edema. NEUROLOGICAL: Gross neurological examination did not reveal any focal deficits. DERMATOLOGIC: As described in HPI. FINAL DIAGNOSES: 1. Cellulitis. No significant sepsis as described yesterday. Patient is being discharged on doxycycline. Patient has a resistant staphylococcus aureus and a small abscess in the left forearm with cellulitis. 2. Hypothyroidism. 3. Hyperlipidemia. 4. History of lupus. 5. Meningitic mitochondrial disease. 6. Hypertension. 7. Diarrhea. Patient does not have any GI bleed at this point of time. He is complaining of nausea. DISCHARGE DIET: Regular. Activity as tolerated. Follow up with Dr. Merline Montano in 3 to 7 days. Leukocytosis, resolved.
--- NOTE | 2017-03-22 17:29 | CDI ---
In responding to this query, please exercise your independent professional judgment. The [facility] Coding Staff and Clinical Documentation Specialists appreciate your assistance in clarifying documentation, maintaining compliance with coding guidelines, accurately documenting patients condition and capturing severity of illness. The fact that a question is asked does not imply that any particular answer is desired or expected. Communication forms are a method of clarifying documentation and are not made part of the Legal Health Record. Thank you in advance for your clarification. Last Revision, September 2015 Aj Blakely [address] [facility] [place] [address] Documentation Clarification Form Date: 03/22/2017 5:13:00 PM From: Jacklyn Wilhelm [facility] BECK OPERATOR & Carey Jimenez, [employer] Salesperson & Carey = [phone] Admit Date: 03/15/2017 6:20:00 PM Patient Name: Francisca Khoury Visit Number: [id number] Discharge Date: 03-17-17 Dr. Malinda Garner Please confirm if sepsis was present, this admission. Discharge Summary states "No significant sepsis as described yesterday". "Patient has a resistant staphylococcus aureus and small abscess in left forearm with cellulitis." H&P states "Severe sepsis". WBC 11.0 on 03-15. 8.2 on 03-17-17 Lactic acid: elevated due to mitochondrial disease. Blood cultures: Yes-negative Vital Signs: Fever of 100.2 on admission. One blood pressure reading on 03-15 was 95/61. No tachycardia. ID Consult: Yes, Dr. Hansen Antibiotics: IV antibiotics, and home on 7 more days of Doxycycline, as recommended by Dr. Hansen. In your professional opinion, can you please clarify if these findings signify one of the following conditions, whether the condition is POA, and cause, if known? SIRS, without underlying infectious process Sepsis Severe Sepsis Septic Shock Unable to determine Other, please specify * Identify the (suspected) organism * Link or clarify if there is associated (due to/with): - Organ failure - Shock SIRS Criteria: 2 or more of the following may indicate SIRS Temperature < 96.8F(36C) or > 101.0F (38C) Heart Rate > 90 bpm Respiratory Rate > 20 breaths/min or PaCO2 < 32 mmHg White Blood Cell Count > 12,000 or < 4,000 cells/mm3 or > 10% bands Please document in your progress notes and discharge summary in order to capture severity of illness and risk of mortality. Include clinical findings that support your diagnosis. FYI: Press F11 to launch patient chart. ___x__ Place X here if this finding has no clinical significance, is not applicable or if you are not able to provide any additional documentation. MTDD
== END 2017-03-17 14:01 | disposition home or self-care (01) | DRG 603 ==
LOC: EC 17:19 → 4MS4W 18:20
PROVIDERS: ADMIT Internal Medicine; ATTEND Internal Medicine
DX: L03.114 Cellulitis of left upper limb (principal); E87.2 Acidosis; E88.49 Other mitochondrial metabolism disorders; K52.1 Toxic gastroenteritis and colitis; D68.62 Lupus anticoagulant syndrome; Q21.1 Atrial septal defect; Z68.41 Body mass index [BMI] 40.0-44.9, adult; L02.414 Cutaneous abscess of left upper limb; G62.9 Polyneuropathy, unspecified; E78.5 Hyperlipidemia, unspecified; K21.9 Gastro-esophageal reflux disease without esophagitis; T37.0X5A Adverse effect of sulfonamides, initial encounter; R11.0 Nausea; E07.81 Sick-euthyroid syndrome; B95.62 Methicillin resistant Staphylococcus aureus infection as the cause of diseases classified elsewhere; I10 Essential (primary) hypertension; F31.9 Bipolar disorder, unspecified; G90.1 Familial dysautonomia [Riley-Day]; R25.2 Cramp and spasm; G43.409 Hemiplegic migraine, not intractable, without status migrainosus; E03.9 Hypothyroidism, unspecified; D35.2 Benign neoplasm of pituitary gland; R53.82 Chronic fatigue, unspecified; E66.9 Obesity, unspecified; R29.6 Repeated falls; D72.829 Elevated white blood cell count, unspecified; E28.2 Polycystic ovarian syndrome; E06.3 Autoimmune thyroiditis; Z88.2 Allergy status to sulfonamides; Z88.7 Allergy status to serum and vaccine; Z88.8 Allergy status to other drugs, medicaments and biological substances; Z91.041 Radiographic dye allergy status; Z79.01 Long term (current) use of anticoagulants; Z82.3 Family history of stroke; Z79.899 Other long term (current) drug therapy; Z83.3 Family history of diabetes mellitus; Z82.49 Family history of ischemic heart disease and other diseases of the circulatory system; Z86.718 Personal history of other venous thrombosis and embolism; Z86.73 Personal history of transient ischemic attack (TIA), and cerebral infarction without residual deficits; Z71.3 Dietary counseling and surveillance; Z83.2 Family history of diseases of the blood and blood-forming organs and certain disorders involving the immune mechanism; Z91.14 Patient's other noncompliance with medication regimen; Z91.81 History of falling; Z86.79 Personal history of other diseases of the circulatory system; Z91.5 Personal history of self-harm; Z87.440 Personal history of urinary (tract) infections; Z79.891 Long term (current) use of opiate analgesic
CPT/HCPCS: 36415; 80048; 80053; 80074; 80306; 83605; 84439; 84443; 85025; 85027; 87040; 96365; 99284

== ENCOUNTER 2017-07-09 00:47 | Emergency (ER) | payer MEDICARE, OTHER ==
[2017-07-09 00:53] VITALS: RESP 16
[2017-07-09] MEDS ORDERED: SODIUM CHLORIDE 0.9% 1,000 ML IV STA (01:13)
[2017-07-09] MEDS ORDERED: SODIUM CHLORIDE 0.9% 500 ML IV STA (01:13)
[2017-07-09 01:29] LABS: Basophils % (A) 0 %; CH 28.3; CHCM 32.8; Eosinophils # (A) 0.1 k/uL (0-0.7); Eosinophils % (A) 1 %; HDW 2.82; HGB 12.2 gm/dL (11.4-16.0); Luc # (Auto) 0.17; Luc % (Auto) 2; Lymphocytes # (A) 1.9 k/uL (1.0-4.8); Lymphocytes % (A) 23 %; MCH 28.6 pg (25.0-35.0); MCHC 32.9 g/dL (31.0-37.0); MCV 86.8 fL (80.0-100.0); Mean Platelet Volume 7.2; Monocytes # (A) 0.5 k/uL (0-1.0); Monocytes % (A) 6 %; Neutrophils # (A) 5.7 k/uL (1.3-7.7); Neutrophils % (A) 67 %; RBC 4.26 m/uL (3.80-5.40); WBC 8.5 k/uL (3.8-10.6); WBC (Perox) 8.41
[2017-07-09 01:38] LABS: ALT 62 U/L (9-52); AST 37 U/L (14-36); Alkaline Phosphatase 74 U/L (38-126); Amylase <30 U/L (30-110); Anion Gap 14 mmol/L; Blood Urea Nitrogen 10 mg/dL (7-17); Calcium 9.6 mg/dL (8.4-10.2); Carbon Dioxide 21 mmol/L (22-30); Chloride 104 mmol/L (98-107); Glucose 159 mg/dL (74-99); Magnesium 1.8 mg/dL (1.6-2.3); Non-African American GFR(MDRD) >60 (>60 ml/min/1.73 sqM); Potassium 4.6 mmol/L (3.5-5.1); Sodium 139 mmol/L (137-145); Total Bilirubin 0.3 mg/dL (0.2-1.3); Total Protein 6.3 g/dL (6.3-8.2)
--- NOTE | 2017-07-09 01:46 | XR ---
EXAM: XR KUB, 1 View CLINICAL HISTORY: Reason: abdominal pain TECHNIQUE: Frontal supine view of the abdomen/pelvis. COMPARISON: No relevant prior studies available. FINDINGS: Gastrointestinal tract: Unremarkable. No dilation. Bones/joints: Unremarkable. IMPRESSION: Normal KUB x-ray.
[2017-07-09 03:00] LABS: Appearance,Urine Cloudy (Clear); Bacteria,Urine Occasional /hpf; Bilirubin,Urine Negative (Negative); Glucose,Urine (UA) Negative (Negative); Ketones,Urine Negative (Negative); Leukocyte Esterase,Urine Large (Negative); Mucus,Urine Rare /hpf; Nitrite,Urine Negative (Negative); PH, Urine 6.5 (5.0-8.0); Particle Count 8475; Protein,Urine Negative (Negative); RBC,Urine 1 /hpf (0-5); Specific Gravity,Urine 1.006 (1.001-1.035); Squamous Epithelial Cell,Urine 3 /hpf (0-4); UA Billing (MACRO vs. MICRO) MICRO; Urobilinogen,Urine <2.0 mg/dL (<2.0); WBC,Urine 25 /hpf (0-5)
--- NOTE | 2017-07-09 03:12 | ED ---
General Adult HPI - General Chief complaint: Recheck/Abnormal Lab/Rx Stated complaint: Hypotension Time Seen by Provider: 07/09/17 00:48 Source: patient, EMS, RN notes reviewed, old records reviewed Mode of arrival: EMS Limitations: no limitations - History of Present Illness Initial comments: 31 sexual female with history of hypertension, gastroparesis, mitochondrial disease and dysmotility presents with severe abdominal pain. Patient's pain is primarily in the right upper quadrant and epigastrium. She does have a history of prior gallbladder function secondary to her mitochondrial disease. Patient was discharged from yesterday. Since time of discharge she has been unable to tolerate any food or water orally. She has no vomiting but does have severe abdominal pain. Pain is primarily sharp and crampy in nature. Denies diarrhea. Patient was found by EMS to be hypotensive. She does report lightheadedness. Denies dysuria. Denies chest pain or shortness of breath. - Related Data Home Medications Medication Instructions Recorded Confirmed Pravastatin Sodium [Pravachol] 40 mg PO HS 01/24/16 03/15/17 Cyanocobalamin [Vitamin B-12] 2,000 mcg PO DAILY 01/25/16 03/15/17 Ferrous Sulfate [Iron (65 MG 325 mg PO BID 07/14/16 03/15/17 Elemental)] Rivaroxaban [Xarelto] 20 mg PO DAILY 03/09/17 03/15/17 tiZANidine [Zanaflex] 8 mg PO HS 03/09/17 03/15/17 LORazepam [Ativan] 0.5 mg PO QID PRN 03/11/17 03/15/17 Previous Rx's Medication Instructions Recorded Cyclobenzaprine [Flexeril] 10 mg PO TID #90 tab 08/12/16 Levothyroxine Sodium [Synthroid] 250 mcg PO DAILY #90 tab 08/12/16 Nadolol [Corgard] 40 mg PO DAILY #30 tab 08/12/16 Ondansetron [Zofran] 8 mg PO Q8HR PRN #0 tab 08/12/16 Acetaminophen-Codeine 300-30mg 1 tab PO Q4H PRN #20 tablet 03/09/17 [Tylenol #3] Doxycycline Hyclate 100 mg PO BID #14 tab 03/17/17 Ondansetron Odt [Zofran Odt] 4 mg PO Q8HR PRN #20 tab 03/17/17 Allergies Allergy/AdvReac Type Severity Reaction Status Date / Time barium sulfate Allergy Anaphylaxis Verified 07/09/17 00:48 doxepin [Doxepin] Allergy Anaphylaxis Verified 07/09/17 00:48 influenza virus vaccine, Allergy Rash/Hives Verified 07/09/17 00:48 specific [Influenza Virus Vacc,Specific] Iodinated Contrast- Oral and Allergy Swelling Verified 07/09/17 00:48 IV Dye [Iodinated Contrast Media - IV Dye] promethazine HCl Allergy Anaphylaxis Verified 07/09/17 00:48 [From Phenergan] sulfamethoxazole Allergy Rash/Hives Verified 07/09/17 00:48 [From Bactrim] trimethoprim [From Bactrim] Allergy Rash/Hives Verified 07/09/17 00:48 Pertussis Vaccines AdvReac fever/seizu Verified 07/09/17 00:48 re pseudoephedrine AdvReac Chest Pain Verified 07/09/17 00:48 pseudoephedrine HCl AdvReac Chest Pain Verified 07/09/17 00:48 [From Sudafed] Review of Systems ROS Statement: Those systems with pertinent positive or pertinent negative responses have been documented in the HPI. ROS Other: All systems not noted in ROS Statement are negative. Past Medical History Past Medical History: Chest Pain / Angina, CVA/TIA, Deep Vein Thrombosis (DVT), Neurologic Disorder, Syncope, Thyroid Disorder Additional Past Medical History / Comment(s): "Dysautonomia-progressive neurological disorder, lupus/LUPUS ANTICOAGULANTS, ana maria's disease, lymphedema Lt arm, v-tach, pituitary microadenoma. "mitochondrial disease". patent foramen ovale. uti's, falls, orthostatic hypotension/syncope,migraine, polycystic ovarian syndrome,neuropathy. Uterine ablation August 2015. Patient no longer has periods. History of Any Multi-Drug Resistant Organisms: MRSA Date of last positivie culture/infection: 03/09/17 MDRO Source:: LEFT ARM Past Surgical History: Uterine Ablation Additional Past Surgical History / Comment(s): colonscopy/egd, angie, stress test. Past Anesthesia/Blood Transfusion Reactions: No Reported Reaction Additional Past Anesthesia/Blood Transfusion Reaction / Comment(s): patient states "It takes a lot of anesthesia for my body to react" Past Psychological History: Bipolar, Depression Smoking Status: Never smoker Past Alcohol Use History: None Reported Past Drug Use History: None Reported - Past Family History Brother(s) Family Medical History: Diabetes Mellitus, Hyperlipidemia, Hypertension Additional Family Medical History / Comment(s): Patient states she has 1 brother with no major medical problems. Father Family Medical History: Hyperlipidemia, Hypertension Additional Family Medical History / Comment(s): DAD IS 70 YEARS OLD. Patient states she does not have any contact with her father and does not know his medical history. Mother Family Medical History: Chest Pain / Angina, CVA/TIA, Hyperlipidemia, Hypertension Additional Family Medical History / Comment(s): AGE 62 HAS LUPUS, blood pressure swings high to low General Exam Limitations: no limitations General appearance: alert, in no apparent distress Head exam: Present: atraumatic, normocephalic Eye exam: Present: normal appearance, PERRL ENT exam: Present: mucous membranes dry Neck exam: Present: normal inspection. Absent: tenderness, meningismus Respiratory exam: Present: normal lung sounds bilaterally. Absent: respiratory distress Cardiovascular Exam: Present: regular rate, normal rhythm GI/Abdominal exam: Present: soft, tenderness (Generalized tenderness to palpation, worse in the right upper quadrant). Absent: guarding, rebound, normal bowel sounds Extremities exam: Present: normal inspection. Absent: normal capillary refill, pedal edema Neurological exam: Present: alert, oriented X3, CN II-XII intact. Absent: motor sensory deficit Psychiatric exam: Present: normal affect, normal mood Skin exam: Present: warm, dry. Absent: cyanosis, diaphoretic Course Vital Signs 07/09/17 07/09/17 07/09/17 00:48 01:18 01:44 Temperature 98.2 F Pulse Rate 85 70 68 Respiratory 16 16 16 Rate Blood Pressure 74/36 89/55 88/50 O2 Sat by Pulse 96 98 99 Oximetry 07/09/17 07/09/17 07/09/17 02:23 02:38 02:52 Temperature Pulse Rate 78 78 78 Respiratory 16 16 16 Rate Blood Pressure 90/54 94/57 112/78 O2 Sat by Pulse 99 99 97 Oximetry - Reevaluation(s) Reevaluation #1: 07/09/17 03:08 Patient's blood pressure does improve with IV hydration. Medical Decision Making - Medical Decision Making 37 yo female with history of gastroparesis and poor GI motility secondary to medical 100 was he's presents with severe abdominal pain. She was discharged from yesterday with similar symptoms. Patient states at that time she was evaluated for gastric stimulator. Patient denies vomiting or diarrhea, but states she hasn't been unable to tolerate any food or water over the last 24 hours. Patient is hypotensive upon arrival blood pressure 74/36. She is given IV hydration. Blood pressure does improve. Patient does complain of significant abdominal pain which is been unchanged over the past week. X- rays obtained shows no obstruction. Laboratory studies including CBC, CMP are unremarkable. Electrolytes within normal limits. Patient would prefer to be transfer to , I agree as she wishes recently evaluated there and discharged yesterday. Diagnosis: Hypotension secondary to dehydration, gastroparesis, GI dysmotility - Lab Data Result diagrams: 07/09/17 00:56 07/09/17 00:56 Lab Results 07/09/17 07/09/17 07/09/17 Range/Units 00:56 00:56 02:50 WBC 8.5 (3.8-10.6) k/uL RBC 4.26 (3.80-5.40) m/uL Hgb 12.2 (11.4-16.0) gm/dL Hct 37.0 (34.0-46.0) % MCV 86.8 (80.0-100.0) fL MCH 28.6 (25.0-35.0) pg MCHC 32.9 (31.0-37.0) g/dL RDW 15.0 (11.5-15.5) % Plt Count 384 (150-450) k/uL Neutrophils % 67 % Lymphocytes % 23 % Monocytes % 6 % Eosinophils % 1 % Basophils % 0 % Neutrophils # 5.7 (1.3-7.7) k/uL Lymphocytes # 1.9 (1.0-4.8) k/uL Monocytes # 0.5 (0-1.0) k/uL Eosinophils # 0.1 (0-0.7) k/uL Basophils # 0.0 (0-0.2) k/uL Sodium 139 (137-145) mmol/L Potassium 4.6 (3.5-5.1) mmol/L Chloride 104 (98-107) mmol/L Carbon Dioxide 21 L (22-30) mmol/L Anion Gap 14 mmol/L BUN 10 (7-17) mg/dL Creatinine 0.80 (0.52-1.04) mg/dL Est GFR (MDRD) Af Amer >60 (>60 ml/min/1.73 sqM) Est GFR (MDRD) Non-Af >60 (>60 ml/min/1.73 sqM) Glucose 159 H (74-99) mg/dL Calcium 9.6 (8.4-10.2) mg/dL Magnesium 1.8 (1.6-2.3) mg/dL Total Bilirubin 0.3 (0.2-1.3) mg/dL AST 37 H (14-36) U/L ALT 62 H (9-52) U/L Alkaline Phosphatase 74 (38-126) U/L Total Protein 6.3 (6.3-8.2) g/dL Albumin 4.1 (3.5-5.0) g/dL Amylase <30 L (30-110) U/L Lipase 46 (23-300) U/L Urine Color Yellow Urine Appearance Cloudy H (Clear) Urine pH 6.5 (5.0-8.0) Ur Specific [place] 1.006 (1.001-1.035) Urine Protein Negative (Negative) Urine Glucose (UA) Negative (Negative) Urine Ketones Negative (Negative) Urine Blood Negative (Negative) Urine Nitrite Negative (Negative) Urine Bilirubin Negative (Negative) Urine Urobilinogen <2.0 (<2.0) mg/dL Ur Leukocyte Esterase Large H (Negative) Urine RBC 1 (0-5) /hpf Urine WBC 25 H (0-5) /hpf Ur Squamous Epith Cells 3 (0-4) /hpf Urine Bacteria Occasional H (None) /hpf Urine Mucus Rare H (None) /hpf Urine Yeast (Budding) Occasional H (None) /hpf Critical Care Time Critical Care Time: Yes Total Critical Care Time: 42 Disposition Clinical Impression: Hypotension, Dehydration Disposition: OTHER INSTITUTION NOT DEFINED Condition: Serious Referrals: Jayesh Eli DO [Primary Care Provider] - 1-2 days - Out of Hospital Transfer - Req. Specs Out of Hospital Transfer - Requested Specifics: Other Non-Acute (Patient is transferred to , accepting Dr. Calderon)
[2017-07-09] MEDS ORDERED: fentaNYL (PF) 50 MCG/ML 2 ML AMP IV STA (03:13)
[2017-07-09 05:19] VITALS: BP 112/56; PULSE 70; TEMP 98.1
== END 2017-07-09 05:21 | disposition short-term general hospital (02) ==
LOC: SUPCPDRO 00:47 → EC 00:47
DX: K31.84 Gastroparesis (principal); E86.0 Dehydration; I95.9 Hypotension, unspecified; K30 Functional dyspepsia; Z79.01 Long term (current) use of anticoagulants; Z79.899 Other long term (current) drug therapy; Z88.1 Allergy status to other antibiotic agents; Z88.7 Allergy status to serum and vaccine; Z88.8 Allergy status to other drugs, medicaments and biological substances; Z91.041 Radiographic dye allergy status; Z91.048 Other nonmedicinal substance allergy status; Z86.73 Personal history of transient ischemic attack (TIA), and cerebral infarction without residual deficits; Z86.718 Personal history of other venous thrombosis and embolism; Z82.49 Family history of ischemic heart disease and other diseases of the circulatory system
CPT/HCPCS: 99291; 96374; 96361 ×4; 36415; 93005; 80053; 82150; 83690; 83735; 85025; 81001; 74000; J3010

== ENCOUNTER 2017-07-29 22:16 | Inpatient (IN) | payer MEDICARE, OTHER ==
[2017-07-29] MEDS ORDERED: diphenhydrAMINE 50 MG/ML 1 ML VIAL IVP STA (22:54)
[2017-07-29] MEDS ORDERED: KETOROLAC 30 MG/ML 1 ML VIAL IVP STA (22:54)
[2017-07-29] MEDS ORDERED: METOCLOPRAMIDE 5 MG/ML 2 ML VIAL IVP STA (22:54)
[2017-07-29] MEDS ORDERED: HYDROmorphone 1 MG/ML 1 ML SYRINGE IVP STA (23:07)
--- NOTE | 2017-07-29 23:16 | CT ---
EXAM: CT Head Without Intravenous Contrast CLINICAL HISTORY: Reason: Pain TECHNIQUE: Axial computed tomography images of the head/brain without intravenous contrast. DLP is 1054.20 mGy-cm. This CT exam was performed using one or more of the following dose reduction techniques: automated exposure control, adjustment of the mA and/or kV according to patient size, and/or use of iterative reconstruction technique. COMPARISON: 05/13/16 FINDINGS: Brain: Unremarkable. No hemorrhage. No significant white matter disease. No edema. Ventricles: Unremarkable. No ventriculomegaly. Bones/joints: Unremarkable. No acute fracture. Soft tissues: Unremarkable. Sinuses: Unremarkable as visualized. No acute sinusitis. Mastoid air cells: Unremarkable as visualized. No mastoid effusion. IMPRESSION: Normal head/brain CT.
[2017-07-29 23:25] LABS: Basophils # (A) 0.1 k/uL (0-0.2); Basophils % (A) 1 %; CH 29.3; CHCM 34.5; Eosinophils # (A) 0.1 k/uL (0-0.7); Eosinophils % (A) 1 %; HCT 39.9 % (34.0-46.0); HGB 13.2 gm/dL (11.4-16.0); Luc # (Auto) 0.21; Luc % (Auto) 2; Lymphocytes # (A) 1.6 k/uL (1.0-4.8); Lymphocytes % (A) 14 %; MCH 28.2 pg (25.0-35.0); MCHC 33.2 g/dL (31.0-37.0); MCV 85.2 fL (80.0-100.0); Mean Platelet Volume 7.5; Monocytes # (A) 0.6 k/uL (0-1.0); Monocytes % (A) 6 %; Neutrophils # (A) 8.7 k/uL (1.3-7.7); Neutrophils % (A) 77 %; RBC 4.69 m/uL (3.80-5.40); RDW 15.1 % (11.5-15.5); WBC 11.3 k/uL (3.8-10.6); WBC (Perox) 11.17
--- NOTE | 2017-07-29 23:25 | ED ---
Headache HPI <Sunny Grier - Last Filed: 07/30/17 00:32> - General Mode of arrival: EMS Limitations: no limitations <Jade Ramires - Last Filed: 07/30/17 04:49> - General Chief Complaint: Headache Stated Complaint: headache Time Seen by Provider: 07/29/17 22:34 - History of Present Illness Initial Comments: 37-year-old female patient presents to emergency department today for evaluation of headache and left-sided weakness. Patient states that headache onset was around 8 PM this evening. Patient states that approximately 9:15 PM she had onset of left-sided weakness and decreased sensation to the left side as well. 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 Patient states that her last hemiplegic migraine was a year ago. Patient states she had been taking Topamax which prevented the migraines however her insurance stopped covering the Topamax and she has not had this medication for the last several months. Patient states that prior to starting the topamax she had at least one hemiplegic headache per month. Patient does have history of frequent migraine headaches without weakness. Patient states that this headache feels very typical for her usual migraine pattern. She states she does have sensitivity to light and sound. She is nauseated however has not vomited. Patient did have a CVA seven years ago, she had no residual deficits from this. States she did take her [place] at home however this has not relieved her symptoms. Patient denies any dizziness, blurred vision, double vision, neck pain, back pain, chest pain, shortness of breath, vomiting, hematuria, dysuria, urinary frequency , urinary urgency, constipation, or diarrhea. (Jade Ramires) - Related Data Home Medications Medication Instructions Recorded Confirmed Pravastatin Sodium [Pravachol] 40 mg PO HS 01/24/16 07/29/17 Cyanocobalamin [Vitamin B-12] 2,000 mcg PO DAILY 01/25/16 07/29/17 Ferrous Sulfate [Iron (65 MG 325 mg PO BID 07/14/16 07/29/17 Elemental)] Rivaroxaban [Xarelto] 20 mg PO DAILY 03/09/17 07/29/17 tiZANidine [Zanaflex] 8 mg PO HS 03/09/17 07/29/17 LORazepam [Ativan] 0.5 mg PO DAILY PRN 03/11/17 07/29/17 HYDROcodone/APAP 5-325MG [[place] 1 tab PO Q4HR PRN 07/29/17 07/29/17 5-325] Levothyroxine Sodium [Synthroid] 50 mcg PO DAILY 07/29/17 07/29/17 Levothyroxine Sodium [Synthroid] 200 mcg PO DAILY 07/29/17 07/29/17 Metoclopramide [Reglan] 10 mg PO ACHS 07/29/17 07/29/17 Metoprolol Succinate [Toprol XL] 50 mg PO DAILY 07/29/17 07/29/17 Previous Rx's Medication Instructions Recorded Ondansetron [Zofran] 8 mg PO Q8HR PRN #0 tab 08/12/16 Allergies Allergy/AdvReac Type Severity Reaction Status Date / Time barium sulfate Allergy Anaphylaxis Verified 07/29/17 23:05 doxepin [Doxepin] Allergy Anaphylaxis Verified 07/29/17 23:05 influenza virus vaccine, Allergy Rash/Hives Verified 07/29/17 23:05 specific [Influenza Virus Vacc,Specific] Iodinated Contrast- Oral and Allergy Swelling Verified 07/29/17 23:05 IV Dye [Iodinated Contrast Media - IV Dye] promethazine HCl Allergy Anaphylaxis Verified 07/29/17 23:05 [From Phenergan] sulfamethoxazole Allergy Rash/Hives Verified 07/29/17 23:05 [From Bactrim] trimethoprim [From Bactrim] Allergy Rash/Hives Verified 07/29/17 23:05 Pertussis Vaccines AdvReac fever/seizu Verified 07/29/17 23:05 re pseudoephedrine AdvReac Chest Pain Verified 07/29/17 23:05 pseudoephedrine HCl AdvReac Chest Pain Verified 07/29/17 23:05 [From Sudafed] Review of Systems ROS Other: All systems not noted in ROS Statement are negative. <Sunny Grier - Last Filed: 07/30/17 00:32> ROS Other: All systems not noted in ROS Statement are negative. <Jade Ramires - Last Filed: 07/30/17 04:49> ROS Statement: Those systems with pertinent positive or pertinent negative responses have been documented in the HPI. Past Medical History Past Medical History: Chest Pain / Angina, CVA/TIA, Deep Vein Thrombosis (DVT), Neurologic Disorder, Syncope, Thyroid Disorder Additional Past Medical History / Comment(s): "Dysautonomia-progressive neurological disorder, lupus/LUPUS ANTICOAGULANTS, ana maria's disease, lymphedema Lt arm, v-tach, pituitary microadenoma. "mitochondrial disease". patent foramen ovale. uti's, falls, orthostatic hypotension/syncope,migraine, polycystic ovarian syndrome,neuropathy. Uterine ablation August 2015. Patient no longer has periods. History of Any Multi-Drug Resistant Organisms: MRSA Date of last positivie culture/infection: 03/09/17 MDRO Source:: LEFT ARM Past Surgical History: Uterine Ablation Additional Past Surgical History / Comment(s): colonscopy/egd, angie, stress test. Past Anesthesia/Blood Transfusion Reactions: No Reported Reaction Additional Past Anesthesia/Blood Transfusion Reaction / Comment(s): patient states "It takes a lot of anesthesia for my body to react" Past Psychological History: Bipolar, Depression Smoking Status: Never smoker Past Alcohol Use History: None Reported Past Drug Use History: None Reported - Past Family History Brother(s) Family Medical History: Diabetes Mellitus, Hyperlipidemia, Hypertension Additional Family Medical History / Comment(s): Patient states she has 1 brother with no major medical problems. Father Family Medical History: Hyperlipidemia, Hypertension Additional Family Medical History / Comment(s): DAD IS 70 YEARS OLD. Patient states she does not have any contact with her father and does not know his medical history. Mother Family Medical History: Chest Pain / Angina, CVA/TIA, Hyperlipidemia, Hypertension Additional Family Medical History / Comment(s): AGE 62 HAS LUPUS, blood pressure swings high to low <Jade Ramires M - Last Filed: 07/30/17 04:49> General Exam Limitations: no limitations General appearance: alert, in no apparent distress Head exam: Present: atraumatic, normocephalic, normal inspection Eye exam: Present: normal appearance, PERRL, EOMI. Absent: scleral icterus, conjunctival injection, nystagmus, periorbital swelling Pupils: Present: normal accommodation ENT exam: Present: normal exam, normal oropharynx, mucous membranes moist, TM's normal bilaterally Neck exam: Present: normal inspection, full ROM. Absent: tenderness, meningismus, lymphadenopathy Respiratory exam: Present: normal lung sounds bilaterally. Absent: respiratory distress, wheezes, rales, rhonchi, stridor Cardiovascular Exam: Present: regular rate, normal rhythm, normal heart sounds. Absent: systolic murmur, diastolic murmur, rubs, gallop, clicks GI/Abdominal exam: Present: soft, normal bowel sounds. Absent: distended, tenderness, guarding, rebound, rigid Extremities exam: Present: normal inspection, full ROM, normal capillary refill. Absent: tenderness, pedal edema, joint swelling, calf tenderness Back exam: Present: normal inspection Neurological exam: Present: alert, oriented X3, CN II-XII intact Expanded Patient oriented to: Present: person, place, time Speech: Present: fluid speech Cranial nerves: EOM's Intact: Normal, Gag Reflex: Normal, Tongue Deviation: Normal, Nystagmus: Normal, Facial Sensation: Abnormal Left, Facial Palsy with Forehead Movement: Normal, Facial Palsy without Forehead Movement: Normal Cerebellar function: Finger to Nose: Abnormal Left (Patient is unable to lift her left arm) Upper motor neuron: Thang Neglect: Normal, Pronator Drift: Abnormal Left, Babinski Sign: Normal, Sensory Extinction: Normal (Decreased sensation to the left side however no sensory extinction) Sensory exam: Upper Extremity Light Touch: Abnormal Left, Upper Extremity Pin Prick: Abnormal Left, Lower Extremity Light Touch: Abnormal Left, Lower Extremity Pin Prick: Abnormal Left Motor strength exam: RUE: 5, LUE: 2/1, RLE: 5, LLE: 2/1 Eye Response: (4) open spontaneously Motor Response: (6) obeys commands Verbal Response: (5) oriented Psychiatric exam: Present: normal mood, flat affect Skin exam: Present: warm, dry, intact, pallor. Absent: normal color, rash <Jade Ramires - Last Filed: 07/30/17 04:49> Medical Decision Making - Lab Data Result diagrams: 07/29/17 22:45 07/29/17 22:45 <Sunny Grier - Last Filed: 07/30/17 00:32> - Lab Data Result diagrams: 07/29/17 22:45 07/29/17 22:45 <Jade Ramires - Last Filed: 07/30/17 04:49> - Medical Decision Making Prior chart reviewed. Patient was reevaluated by myself, Dr. Grier. Patient states headache started around 8 or 8:30 and weakness started shortly after this. Patient states the pain medication did help somewhat with her headache and with her weakness. Patient states she is had similar symptoms several times previously associated with hemiplegic migraine. Chart review did have concern for malingering. TPA will not be used at this time secondary to likely diagnosis of hemiplegic migraine over CVA. In addition patient is currently on xarelto. In addition patient states symptoms are starting to improve. Case was discussed with Dr. kingsley, who will admit for Dr. Eli. (Sunny Grier) 37 year-old female patient presented for evaluation of headache and left-sided weakness. CT of the brain was obtained and showed no acute intracranial abnormalities. Lab work was reviewed and showed no acute abnormalities. Patient symptoms did improve somewhat with medications received here in the emergency department. Patient does have history significant for hemiplegic migraines, she states that her symptoms are consistent with her previous migraines. Patient will be admitted to Dr. Cheek covering for Dr. Eli. Consult to Dr. Vickers from Neurology has been placed. My attending Dr. Grier did reevaluate patient and agrees with this plan. (Jade Ramires) - Lab Data Lab Results 07/29/17 07/29/17 07/29/17 Range/Units 22:45 22:45 22:45 WBC 11.3 H (3.8-10.6) k/uL RBC 4.69 (3.80-5.40) m/uL Hgb 13.2 (11.4-16.0) gm/dL Hct 39.9 (34.0-46.0) % MCV 85.2 (80.0-100.0) fL MCH 28.2 (25.0-35.0) pg MCHC 33.2 (31.0-37.0) g/dL RDW 15.1 (11.5-15.5) % Plt Count 332 (150-450) k/uL Neutrophils % 77 % Lymphocytes % 14 % Monocytes % 6 % Eosinophils % 1 % Basophils % 1 % Neutrophils # 8.7 H (1.3-7.7) k/uL Lymphocytes # 1.6 (1.0-4.8) k/uL Monocytes # 0.6 (0-1.0) k/uL Eosinophils # 0.1 (0-0.7) k/uL Basophils # 0.1 (0-0.2) k/uL PT (9.0-12.0) sec INR (<1.2) APTT (22.0-30.0) sec Sodium 140 (137-145) mmol/L Potassium 4.9 (3.5-5.1) mmol/L Chloride 106 (98-107) mmol/L Carbon Dioxide 20 L (22-30) mmol/L Anion Gap 14 mmol/L BUN 12 (7-17) mg/dL Creatinine 0.60 (0.52-1.04) mg/dL Est GFR (MDRD) Af Amer >60 (>60 ml/min/1.73 sqM) Est GFR (MDRD) Non-Af >60 (>60 ml/min/1.73 sqM) Glucose 208 H (74-99) mg/dL Calcium 10.0 (8.4-10.2) mg/dL Magnesium 1.7 (1.6-2.3) mg/dL Total Bilirubin 0.3 (0.2-1.3) mg/dL AST 25 (14-36) U/L ALT 41 (9-52) U/L Alkaline Phosphatase 97 (38-126) U/L Total Creatine Kinase 55 (30-135) U/L CK-MB (CK-2) 0.8 (0.0-2.4) ng/mL CK-MB (CK-2) Rel Index 1.5 Troponin I <0.012 (0.000-0.034) ng/mL Total Protein 7.1 (6.3-8.2) g/dL Albumin 4.4 (3.5-5.0) g/dL Urine Color Urine Appearance (Clear) Urine pH (5.0-8.0) Ur Specific [place] (1.001-1.035) Urine Protein (Negative) Urine Glucose (UA) (Negative) Urine Ketones (Negative) Urine Blood (Negative) Urine Nitrite (Negative) Urine Bilirubin (Negative) Urine Urobilinogen (<2.0) mg/dL Ur Leukocyte Esterase (Negative) Urine RBC (0-5) /hpf Urine WBC (0-5) /hpf Ur Squamous Epith Cells (0-4) /hpf Urine Bacteria (None) /hpf Hyaline Casts (0-2) /lpf Granular Casts (0) /lpf Urine Mucus (None) /hpf Urine Opiates Screen (NotDetected) Ur Oxycodone Screen (NotDetected) Urine Methadone Screen (NotDetected) Ur Propoxyphene Screen (NotDetected) Ur Barbiturates Screen (NotDetected) U Tricyclic Antidepress (NotDetected) Ur Phencyclidine Scrn (NotDetected) Ur Amphetamines Screen (NotDetected) U Methamphetamines Scrn (NotDetected) U Benzodiazepines Scrn (NotDetected) Urine Cocaine Screen (NotDetected) U Marijuana (THC) Screen (NotDetected) 07/29/17 07/30/17 Range/Units 22:45 00:03 WBC (3.8-10.6) k/uL RBC (3.80-5.40) m/uL Hgb (11.4-16.0) gm/dL Hct (34.0-46.0) % MCV (80.0-100.0) fL MCH (25.0-35.0) pg MCHC (31.0-37.0) g/dL RDW (11.5-15.5) % Plt Count (150-450) k/uL Neutrophils % % Lymphocytes % % Monocytes % % Eosinophils % % Basophils % % Neutrophils # (1.3-7.7) k/uL Lymphocytes # (1.0-4.8) k/uL Monocytes # (0-1.0) k/uL Eosinophils # (0-0.7) k/uL Basophils # (0-0.2) k/uL PT 10.4 (9.0-12.0) sec INR 1.0 (<1.2) APTT 25.7 (22.0-30.0) sec Sodium (137-145) mmol/L Potassium (3.5-5.1) mmol/L Chloride (98-107) mmol/L Carbon Dioxide (22-30) mmol/L Anion Gap mmol/L BUN (7-17) mg/dL Creatinine (0.52-1.04) mg/dL Est GFR (MDRD) Af Amer (>60 ml/min/1.73 sqM) Est GFR (MDRD) Non-Af (>60 ml/min/1.73 sqM) Glucose (74-99) mg/dL Calcium (8.4-10.2) mg/dL Magnesium (1.6-2.3) mg/dL Total Bilirubin (0.2-1.3) mg/dL AST (14-36) U/L ALT (9-52) U/L Alkaline Phosphatase (38-126) U/L Total Creatine Kinase (30-135) U/L CK-MB (CK-2) (0.0-2.4) ng/mL CK-MB (CK-2) Rel Index Troponin I (0.000-0.034) ng/mL Total Protein (6.3-8.2) g/dL Albumin (3.5-5.0) g/dL Urine Color Yellow Urine Appearance Cloudy H (Clear) Urine pH 5.5 (5.0-8.0) Ur Specific [place] 1.029 (1.001-1.035) Urine Protein 1+ H (Negative) Urine Glucose (UA) Negative (Negative) Urine Ketones 1+ H (Negative) Urine Blood Negative (Negative) Urine Nitrite Negative (Negative) Urine Bilirubin Negative (Negative) Urine Urobilinogen <2.0 (<2.0) mg/dL Ur Leukocyte Esterase Moderate H (Negative) Urine RBC 4 (0-5) /hpf Urine WBC 25 H (0-5) /hpf Ur Squamous Epith Cells 8 H (0-4) /hpf Urine Bacteria Rare H (None) /hpf Hyaline Casts 8 H (0-2) /lpf Granular Casts 8 (0) /lpf Urine Mucus Occasional H (None) /hpf Urine Opiates Screen Detected H (NotDetected) Ur Oxycodone Screen Not Detected (NotDetected) Urine Methadone Screen Not Detected (NotDetected) Ur Propoxyphene Screen Not Detected (NotDetected) Ur Barbiturates Screen Not Detected (NotDetected) U Tricyclic Antidepress Not Detected (NotDetected) Ur Phencyclidine Scrn Not Detected (NotDetected) Ur Amphetamines Screen Not Detected (NotDetected) U Methamphetamines Scrn Not Detected (NotDetected) U Benzodiazepines Scrn Detected H (NotDetected) Urine Cocaine Screen Not Detected (NotDetected) U Marijuana (THC) Screen Not Detected (NotDetected) Disposition <Sunny Grier - Last Filed: 07/30/17 00:32> Decision to Admit Reason: Admit from EC Decision Date: 07/30/17 Decision Time: 00:31 <Jade Ramires - Last Filed: 07/30/17 04:49> Clinical Impression: Hemiplegia, Migraine Disposition: ADMITTED IP TO THIS [facility] Condition: Fair
[2017-07-29 23:30] LABS: Partial Thromboplastin Time 25.7 sec (22.0-30.0); Prothrombin Time 10.4 sec (9.0-12.0)
[2017-07-29 23:32] LABS: ALT 41 U/L (9-52); AST 25 U/L (14-36); Alkaline Phosphatase 97 U/L (38-126); Anion Gap 14 mmol/L; Blood Urea Nitrogen 12 mg/dL (7-17); Carbon Dioxide 20 mmol/L (22-30); Chloride 106 mmol/L (98-107); Glucose 208 mg/dL (74-99); Magnesium 1.7 mg/dL (1.6-2.3); Non-African American GFR(MDRD) >60 (>60 ml/min/1.73 sqM); Potassium 4.9 mmol/L (3.5-5.1); Sodium 140 mmol/L (137-145); Total Bilirubin 0.3 mg/dL (0.2-1.3); Total Protein 7.1 g/dL (6.3-8.2)
[2017-07-29 23:42] LABS: Creatine Kinase 55 U/L (30-135)
[2017-07-29 23:55] LABS: Creatine Kinase MB 0.8 ng/mL (0.0-2.4); Troponin I <0.012 ng/mL (0.000-0.034)
[2017-07-30 00:19] LABS: Appearance,Urine Cloudy (Clear); Bacteria,Urine Rare /hpf; Bilirubin,Urine Negative (Negative); Glucose,Urine (UA) Negative (Negative); Granular Casts,Urine 8 /lpf (0); Ketones,Urine 1+ (Negative); Leukocyte Esterase,Urine Moderate (Negative); Mucus,Urine Occasional /hpf; Nitrite,Urine Negative (Negative); PH, Urine 5.5 (5.0-8.0); Particle Count 12660; Protein,Urine 1+ (Negative); RBC,Urine 4 /hpf (0-5); Specific Gravity,Urine 1.029 (1.001-1.035); Squamous Epithelial Cell,Urine 8 /hpf (0-4); UA Billing (MACRO vs. MICRO) MICRO; Urobilinogen,Urine <2.0 mg/dL (<2.0); WBC,Urine 25 /hpf (0-5)
[2017-07-30] MEDS ORDERED: NALOXONE 0.4 MG/ML 1 ML VIAL IV PRN (00:32)
[2017-07-30] MEDS ORDERED: ACETAMINOPHEN TAB 325 MG TAB PO STA (00:35)
[2017-07-30] MEDS: HYDROcodone/APAP 5-325MG 1 EACH TAB PO PRN ×5 (01:57→21:02)
[2017-07-30] MEDS: LEVOTHYROXINE 100 MCG TAB PO SCH (08:47)
[2017-07-30] MEDS: METOCLOPRAMIDE 5 MG/ML 2 ML VIAL IVP PRN ×2 (08:47→17:10)
[2017-07-30] MEDS: LEVOTHYROXINE 50 MCG TAB PO SCH (08:47)
[2017-07-30] MEDS: METOPROLOL SUCCINATE (ER) 50 MG TAB.ER.24H PO SCH (08:48)
[2017-07-30] MEDS: RIVAROXABAN 10 MG TAB PO SCH (08:48)
[2017-07-30] MEDS: FERROUS SULFATE 325 MG TAB PO SCH ×2 (08:48→21:01)
[2017-07-30 11:22] VITALS: BMI 39.6
[2017-07-30] MEDS ORDERED: SODIUM CHLORIDE 0.9% 1,000 ML IV ONE (12:04)
[2017-07-30] MEDS: ONDANSETRON 4 MG/2 ML VIAL IVP PRN ×2 (12:09→21:02)
--- NOTE | 2017-07-30 14:43 | P.CONS ---
History of Present Illness - Reason for Consult Consult date: 07/30/17 Migraine - History of Present Illness Is a pleasant 37-year-old female being evaluated by the neurology service for likely hemiplegic migraine. She has a long history of the same complaint. They were fairly well controlled until she lost coverage of her prophylactic migraine medication namely Topamax. She has not taken this the last several months. Her presenting symptoms were that of typical right-sided migraine with left sided hemiparesis. She gives a history of CVA about 7 years ago and claims there were no residual deficits. Her CT of the brain in the ER was normal. It showed no old infarct. Her drug screen was positive for opiates and benzodiazepines. She has a history of fibromyalgia, mitochondrial myositis, gastroparesis, hypothyroidism and recurrent DVTs. Time my exam she is resting comfortably in bed in no apparent distress. There is obvious left- sided hemiparesis of the upper and lower extremities. Review of Systems All systems: negative Constitutional: Reports as per HPI Past Medical History Past Medical History: Chest Pain / Angina, CVA/TIA, Deep Vein Thrombosis (DVT), Neurologic Disorder, Syncope, Thyroid Disorder Additional Past Medical History / Comment(s): "Dysautonomia-progressive neurological disorder, lupus/LUPUS ANTICOAGULANTS, ana maria's disease, lymphedema Lt arm, v-tach, pituitary microadenoma. "mitochondrial disease". patent foramen ovale. uti's, falls, orthostatic hypotension/syncope,migraine, polycystic ovarian syndrome,neuropathy. Uterine ablation August 2015. Patient no longer has periods. History of Any Multi-Drug Resistant Organisms: MRSA Year Discovered:: 03/09/17 MDRO Source:: LEFT ARM Past Surgical History: Uterine Ablation Additional Past Surgical History / Comment(s): colonscopy/egd, angie, stress test. Past Anesthesia/Blood Transfusion Reactions: No Reported Reaction Additional Past Anesthesia/Blood Transfusion Reaction / Comm: patient states " It takes a lot of anesthesia for my body to react" Past Psychological History: Bipolar, Depression Smoking Status: Never smoker Past Alcohol Use History: None Reported Past Drug Use History: None Reported - Past Family History Brother(s) Family Medical History: Diabetes Mellitus, Hyperlipidemia, Hypertension Additional Family Medical History / Comment(s): Patient states she has 1 brother with no major medical problems. Father Family Medical History: Hyperlipidemia, Hypertension Additional Family Medical History / Comment(s): DAD IS 70 YEARS OLD. Patient states she does not have any contact with her father and does not know his medical history. Mother Family Medical History: Chest Pain / Angina, CVA/TIA, Hyperlipidemia, Hypertension Additional Family Medical History / Comment(s): AGE 62 HAS LUPUS, blood pressure swings high to low Medications and Allergies Home Medications Medication Instructions Recorded Confirmed Type Pravastatin Sodium [Pravachol] 40 mg PO HS 01/24/16 07/29/17 History Cyanocobalamin [Vitamin B-12] 2,000 mcg PO DAILY 01/25/16 07/29/17 History Ferrous Sulfate [Iron (65 MG 325 mg PO BID 07/14/16 07/29/17 History Elemental)] Ondansetron [Zofran] 8 mg PO Q8HR PRN #0 tab 08/12/16 07/29/17 Rx Rivaroxaban [Xarelto] 20 mg PO DAILY 03/09/17 07/29/17 History tiZANidine [Zanaflex] 8 mg PO HS 03/09/17 07/29/17 History LORazepam [Ativan] 0.5 mg PO DAILY PRN 03/11/17 07/29/17 History HYDROcodone/APAP 5-325MG [[place] 1 tab PO Q4HR PRN 07/29/17 07/29/17 History 5-325] Levothyroxine Sodium [Synthroid] 50 mcg PO DAILY 07/29/17 07/29/17 History Levothyroxine Sodium [Synthroid] 200 mcg PO DAILY 07/29/17 07/29/17 History Metoclopramide [Reglan] 10 mg PO ACHS 07/29/17 07/29/17 History Metoprolol Succinate [Toprol XL] 50 mg PO DAILY 07/29/17 07/29/17 History Allergies Allergy/AdvReac Type Severity Reaction Status Date / Time barium sulfate Allergy Anaphylaxis Verified 07/29/17 23:05 doxepin [Doxepin] Allergy Anaphylaxis Verified 07/29/17 23:05 influenza virus vaccine, Allergy Rash/Hives Verified 07/29/17 23:05 specific [Influenza Virus Vacc,Specific] Iodinated Contrast- Oral and Allergy Swelling Verified 07/29/17 23:05 IV Dye [Iodinated Contrast Media - IV Dye] promethazine HCl Allergy Anaphylaxis Verified 07/29/17 23:05 [From Phenergan] sulfamethoxazole Allergy Rash/Hives Verified 07/29/17 23:05 [From Bactrim] trimethoprim [From Bactrim] Allergy Rash/Hives Verified 07/29/17 23:05 Pertussis Vaccines AdvReac fever/seizu Verified 07/29/17 23:05 re pseudoephedrine AdvReac Chest Pain Verified 07/29/17 23:05 pseudoephedrine HCl AdvReac Chest Pain Verified 07/29/17 23:05 [From Sudafed] Physical Exam Vitals: Vital Signs Temp Pulse Pulse Resp BP BP Pulse Ox 07/30/17 07:00 97.7 F 98 20 139/89 97 07/30/17 01:40 99.2 F 73 20 98/58 97 07/30/17 01:01 98.1 F 68 20 90/62 97 07/29/17 23:49 92 16 96/53 96 07/29/17 22:20 99.1 F 103 H 18 124/64 98 Intake and Output 07/29/17 07/30/17 07/30/17 22:59 06:59 14:59 Intake Total 100 Balance 100 Intake: Oral 100 Other: Voiding Method Bedside Commode # Voids 0 Weight 113.398 kg 108.182 kg 108.182 kg Patient Weight 07/31/17 06:59 Weight 108.182 kg - Constitutional General appearance: cooperative, no acute distress, obese - EENT Eyes: no abnormal pupil, EOMI, PERRLA, no ptosis ENT: hearing grossly normal - Neck Neck: normal ROM, no rigidity - Respiratory Respiratory: negative: prolonged expiration, prolonged inspiration - Cardiovascular Rhythm: regular - Gastrointestinal General gastrointestinal: no distended, tenderness - Neurologic Patient is alert awake and oriented 3. Speech-language are normal. Facial asymmetry. There is obvious left-sided hemiparesis. She does have a sensory deficit of the left upper and lower extremity. He cannot lift her left arm or leg. There is minimal movement of her left foot. 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 Tremors or seizure-like activities are seen. She does have some muscle spasticity bilateral foot and ankle and left upper extremity. Results CBC & Chem 7: 07/29/17 22:45 07/29/17 22:45 Labs: Abnormal Lab Results - Last 24 Hours (Table) 07/29/17 07/29/17 07/30/17 Range/Units 22:45 22:45 00:03 WBC 11.3 H (3.8-10.6) k/uL Neutrophils # 8.7 H (1.3-7.7) k/uL Carbon Dioxide 20 L (22-30) mmol/L Glucose 208 H (74-99) mg/dL Urine Appearance Cloudy H (Clear) Urine Protein 1+ H (Negative) Urine Ketones 1+ H (Negative) Ur Leukocyte Esterase Moderate H (Negative) Urine WBC 25 H (0-5) /hpf Ur Squamous Epith Cells 8 H (0-4) /hpf Urine Bacteria Rare H (None) /hpf Hyaline Casts 8 H (0-2) /lpf Urine Mucus Occasional H (None) /hpf Urine Opiates Screen Detected H (NotDetected) U Benzodiazepines Scrn Detected H (NotDetected) Assessment and Plan (1) Hemiplegia Status: Acute (2) Migraine Status: Chronic (3) Abscess Status: Suspected (4) History of DVT (deep vein thrombosis) Status: Chronic (5) Hypercoagulable state Status: Chronic (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 This seems consistent with her past hemiplegic migraines. We will start her on IV Solu-Medrol 250 mg every 8 hours along with magnesium 1 g every 8 hours. She was already on Zofran and Reglan on a regular basis for her gastroparesis. Continue pain management and treatment as ordered already. Alertness for any change in neurological status. Recommend starting physical therapy. We will continue to follow for progression/resolution of symptoms. We would like to reinstitute Topamax as prophylactic medication this can be done in outpatient setting. She agrees with this as recently she has been turned down by her insurance company for this medication. I have reviewed the history and physical on the above patient. I have reviewed the above note, and agree.
[2017-07-30] MEDS ORDERED: MAGNESIUM SULFATE-D5W PMX 1 GM in DEXTROSE/WATER 1 100ML.BAG IVPB ONE (15:00)
--- NOTE | 2017-07-30 15:59 | HP ---
HISTORY AND PHYSICAL DATE OF ADMISSION: 07/30/2017 PRESENTING COMPLAINT: Left-sided weakness. HISTORY OF PRESENTING COMPLAINT: This is a 37-year-old patient of Dr. Eli who did follow with Dr. Montenegro neurologist in the past, not currently. Patient has seen different neurologist at different places including one in [place], one in [place]. She has a diagnosis of mitochondrial disease, also diagnosis of dysautonomic progressive neurological disorder. From prior DVT, she has got lymphedema in the left arm and also she has got hypothyroid, hyperlipidemia, bipolar disorder, polycystic ovarian syndrome. Patient also has a history of diagnosis of hemiplegic migraines. Yesterday now patient started off having headache and also developed some weakness on the left side. No change in speech, no change in the vision. Hence, admitted. Patient was on Topamax because of insurance reasons stopped taking it for about 6 months. The patient takes Zofran for nausea. REVIEW OF SYSTEMS: CONSTITUTIONAL: Tired. HEENT: Headache. RESPIRATORY: None. CARDIOVASCULAR: None. GASTROINTESTINAL: None. GENITOURINARY: None. MUSCULOSKELETAL: None. DERMATOLOGICAL: None. HEMATOLOGICAL: None. LYMPHATIC: None. PSYCHIATRY: Bipolar controlled. NEUROLOGICAL: As above. 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 PAST SURGICAL HISTORY: Uterine ablation. 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 Does not smoke. No alcohol intake. No recreational drugs. She lives with her mother. FAMILY HISTORY: Hypertension, hyperlipidemia. HOME MEDICATIONS: 1. Reglan 10 mg p.o. a.c. and at bedtime. 2. Ativan 0.5 daily p.r.n. 3. Louin 5 one tablet q.4 p.r.n. 4. Iron 325 p.o. b.i.d. 5. Vitamin B12, 2000 mcg p.o. daily. 6. Toprol XL 50 mg p.o. daily. 7. Synthroid 250 mcg p.o. daily. 8. Zanaflex 8 mg p.o. q.h.s. 9. Xarelto 20 mg p.o. daily. 10.Pravachol 40 mg p.o. q.h.s. 11.Zofran 8 mg p.o. q.8 p.r.n. ALLERGIES: BARIUM, DOXEPIN, INFLUENZA, IV CONTRAST DYE, BACTRIM, PERTUSSIS, PSEUDOEPHEDRINE. ON EXAMINATION: VITAL SIGNS ON PRESENTATION: Temperature 99.1, pulse 103, respiration 18, blood pressure 120/64, pulse ox 98% on room air. GENERAL APPEARANCE: Well built, BMI 39.7, lying in bed. EYES: Pupils equal. Conjunctivae normal. HENT: Oral cavity normal. NECK: Short and thick. JVD unable to assess. Mass not palpable. RESPIRATORY: Effort normal. LUNGS: Fair air entry. CARDIOVASCULAR: First and second sounds are normal. No edema. ABDOMEN: Soft, nontender. Liver and spleen not palpable. LYMPHATIC: No lymph node palpable of the neck or axillae. PSYCHIATRY: Alert and oriented x3. Mood affect normal. NEUROLOGICAL: Pupils equal. Cranial nerves grossly intact. Power on the left side is 4/5, decreased sensation on the left side. It may be noted that patient's both feet and toes are curved in, like feet are cold. INVESTIGATIONS: White count 11.3, hemoglobin 13.2. Potassium 4.9. CT scan of the brain normal. ASSESSMENT: 1. This patient with rather extensive neurological history including that of hemiplegic migraines presents with a increasing headache, left-sided weakness as this well could be hemiplegic migraines given especially the CT scan is negative, but await further determination. 2. Obesity, body mass index 39.2. 3. Hypothyroidism. 4. Hyperlipidemia. 5. Mitochondrial disease. 6. Bipolar disorder, controlled. 7. Dysautonomic progressive neurological disorder. 8. Lymphedema of the left arm from prior deep venous thrombosis. 9. Patent foramen ovale. 10.Polycystic ovarian syndrome. PLAN: Home medications are resumed. Neurology was consulted. Care was discussed with the patient. The patient is on Xarelto. Home medications to resume. Dr. Vickers from neurology is consulted. MMODL / IJN: [id number] /
[2017-07-30] MEDS ORDERED: LORazepam 0.5 MG TAB PO PRN (17:34)
[2017-07-30] MEDS: PANTOPRAZOLE 40 MG TABLET PO SCH (18:23)
[2017-07-30] MEDS: methylPREDNISolone SOD SUCCI 250 MG in SODIUM CHLORIDE 0.9% 100 ML IVPB SCH (18:58)
[2017-07-30] MEDS: PRAVASTATIN SODIUM 40 MG TAB PO SCH (21:01)
[2017-07-30] MEDS: tiZANidine 4 MG TAB PO SCH (21:01)
[2017-07-31] MEDS: methylPREDNISolone SOD SUCCI 250 MG in SODIUM CHLORIDE 0.9% 100 ML IVPB SCH ×4 (00:42→23:12)
[2017-07-31] MEDS: HYDROcodone/APAP 5-325MG 1 EACH TAB PO PRN ×4 (06:26→19:44)
[2017-07-31] MEDS: METOCLOPRAMIDE 5 MG/ML 2 ML VIAL IVP PRN ×2 (06:26→15:28)
[2017-07-31] MEDS: LEVOTHYROXINE 100 MCG TAB PO SCH (06:26)
[2017-07-31] MEDS: LEVOTHYROXINE 50 MCG TAB PO SCH (06:26)
[2017-07-31] MEDS: PANTOPRAZOLE 40 MG TABLET PO SCH ×2 (08:03→18:01)
[2017-07-31] MEDS: METOPROLOL SUCCINATE (ER) 50 MG TAB.ER.24H PO SCH (08:03)
[2017-07-31] MEDS: FERROUS SULFATE 325 MG TAB PO SCH ×2 (08:03→19:44)
[2017-07-31] MEDS: RIVAROXABAN 10 MG TAB PO SCH (08:03)
[2017-07-31] MEDS: ONDANSETRON 4 MG/2 ML VIAL IVP PRN ×2 (09:46→16:44)
[2017-07-31] MEDS: NITROFURANTOIN MACROCRYSTAL 50 MG CAP PO SCH (10:07)
[2017-07-31 12:15] LABS: Glucose,Whole Blood 278 mg/dL (75-99)
[2017-07-31] MEDS ORDERED: INSULIN LISPRO (humaLOG) 300 UNIT/3 ML VIAL SQ SCH ×2 (12:30→17:30)
--- NOTE | 2017-07-31 13:12 | P.PN ---
Subjective Principal diagnosis: Hemiplegic migraine Is a pleasant 37-year-old female continuing be evaluated by the neurology service for hemiplegic migraine. She has a long history of being treated for the same complaint. Recall that her migraines are fairly well controlled until she lost coverage through her insurance for her prophylactic Topamax. This is been restarted 25 mg a day we will continue to titrate this in outpatient setting likely up to 50 mg twice a day. She was started on IV Solu-Medrol and magnesium with when necessary [place] and she is slowly getting better. Her left-sided weakness symptoms are slowly resolving. Recall that her CT of the brain in the emergency room showed no acute intracranial abnormalities. It also failed to show any old infarct. It's time my exam she is resting comfortably in bed in no acute distress. She is using her left arm somewhat. Objective - Vital Signs Vital signs: Vital Signs Temp 97.7 F 07/31/17 07:00 Pulse 95 07/31/17 07:00 Resp 16 07/31/17 07:00 BP 121/71 07/31/17 07:00 Pulse Ox 95 07/31/17 07:00 Intake & Output 07/30/17 07/31/17 07/31/17 18:59 06:59 18:59 Intake Total 640 Balance 640 Weight 108.182 kg Intake: Oral 640 Other: Voiding Method Bedside Commode Bedside Commode Bedside Commode # Voids 2 2 - Constitutional General appearance: Present: no acute distress, obese - EENT Eyes: Present: EOMI, PERRLA. Absent: abnormal pupil, ptosis ENT: Present: hearing grossly normal - Neck Neck: Present: normal ROM. Absent: rigidity - Respiratory Respiratory: negative: prolonged expiration, prolonged inspiration - Cardiovascular Rhythm: regular - Neurologic Neurologic Comment(s): She is alert awake and oriented 3. Speech-language are normal. There is no facial asymmetry. Obvious left-sided hemiparesis remains. Sensory deficit of the left upper and lower extremity remains. She has some limited use of her left upper extremity today. And some movement of her left lower extremity. No tremors or seizure-like activities are seen. Some spasticity of her foot and ankle and left upper extremity remained. 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 This seems consistent with her past hemiplegic migraines. We will continue her on IV Solu-Medrol 250 mg every 8 hours along with magnesium 1 g every 8 hours. She will continue Accu-Cheks and sliding scale insulin as needed. She was already on Zofran and Reglan on a regular basis for her gastroparesis. Continue pain management and treatment as ordered already. Alert us for any change in neurological status. Recommend starting physical therapy. We will continue to follow for progression/resolution of symptoms. Recommend we reinstitute Topamax as prophylactic medication this can be increased in outpatient setting. She agrees with this as recently she has been turned down by her insurance company for this medication. We will restart 25 mg daily. I have reviewed the history and physical on the above patient. I have reviewed the above note, and agree.
[2017-07-31] MEDS ORDERED: INSULIN REGULAR BOLUS (FROM DRIP BAG) IV ONE (14:09)
[2017-07-31 15:07] LABS: Glucose,Whole Blood 371 mg/dL (75-99)
[2017-07-31] MEDS: INSULIN REGULAR 100 UNIT in SODIUM CHLORIDE 0.9% 100 ML IV SCH ×2 (15:33→23:12)
[2017-07-31] MEDS ORDERED: MAGNESIUM SULFATE-D5W PMX 1 GM in DEXTROSE/WATER 1 100ML.BAG IVPB ONE (16:00)
[2017-07-31 16:27] LABS: Glucose,Whole Blood 361 mg/dL (75-99)
[2017-07-31 16:50] LABS: Glucose,Whole Blood 341 mg/dL (75-99)
[2017-07-31 17:22] LABS: Glucose,Whole Blood 285 mg/dL (75-99)
--- NOTE | 2017-07-31 17:39 | P.PN ---
Progress Note - Text DATE OF SERVICE: 07/31/2017 PRESENTING COMPLAINT: Left-sided weakness, headache HISTORY OF PRESENT ILLNESS: 37-year-old female with history of hemiplegic migraines developed a headache and some weakness on the left side, no visual changes no changes in speech. Was on Topamax however stopped taking it for about 6 months due to insurance reasons. Admitted for hemiplegic migraines INTERVAL HISTORY: 07/31/2017: Patient lying in bed eyes covered, continues to have a headache and left-sided weakness is mildly improved. Neurology has started IV steroids and IV magnesium , along with Topamax. Some nausea, eating about 20% of her meals as she can, last BM prior to admission, states that she has waxing and waning of bowel activity, MiraLAX added. REVIEW OF SYSTEMS: Done for constitutional ,cardiovascular, GI, pulmonary , neurologic with relevant findings as above. CURRENT MEDICATIONS [place], Ativan, methylprednisolone 104 mL IV piggyback, metoprolol 50 mg by mouth daily Macrodantin 100 mg by mouth daily Protonix 40 mg by mouth twice a day, Zanaflex 8 mg by mouth at bedtime, Topamax 25 mg by mouth daily. Insulin drip, Reglan PHYSICAL EXAM VITAL SIGNS: 97.7, pulse 95, respiratory rate 16, blood pressure 121/71, oxygen saturation 95 % on room air. GENERAL APPEARANCE: Lying in bed, not in distress. EYES: Pupils equal. Conjunctiva normal. NECK: JVD not raised. Mass not palpable. RESPIRATORY: Respiratory effort normal. Lungs clear to auscultation. CARDIOVASCULAR: First and second sounds normal. No edema. ABDOMEN: Soft. Liver and spleen not palpable. No tenderness. No mass palpable. PSYCHIATRY: Alert and oriented x3. Mood and affect normal. NEUROLOGICAL: Cranial nerves grossly intact. No facial asymmetry. Power and sensation on the left is 3/5, decreased sensation on the left side bilateral feet and toes are curved in INVESTIGATIONS: Accu-Cheks noted ASSESSMENT: -Hemiplegic migraine with left-sided weakness, slow to respond -hyperglycemia due to high dose steroid use, improving -Obesity, body mass index 39.2, -Hypothyroidism, -Hyperlipidemia. -Mitochondrial disease. -Bipolar disorder, controlled -Disc autonomic progressive neurologic disorder. -Lymphedema of the left arm from prior deep venous thrombosis -Patent foramen ovale. -Polycystic ovarian syndrome. -Chronic constipation PLAN: We'll continue with IV steroids, IV magnesium as needed, restart Topamax at 25 mg per neurology, will titrate up to 50 mg in the outpatient setting. Accu- Cheks and insulin drip will continue as well as Zofran and Reglan for her gastroparesis. Plan of care discussed with the patient the bedside we will continue to monitor closely. SAND PLANT ATTENDANT statement: Patient was seen and examined by nurse practitioner Amena Nice and all elements of the case discussed with attending Dr. Cheek
[2017-07-31 17:46] LABS: Glucose,Whole Blood 248 mg/dL (75-99)
[2017-07-31] MEDS: INSULIN LISPRO (humaLOG) 300 UNIT/3 ML VIAL SQ SCH (18:00)
[2017-07-31] MEDS: TOPIRAMATE 25 MG TAB PO SCH (18:01)
[2017-07-31 19:31] LABS: Glucose,Whole Blood 309 mg/dL (75-99)
[2017-07-31] MEDS: tiZANidine 4 MG TAB PO SCH (19:44)
[2017-07-31] MEDS: PRAVASTATIN SODIUM 40 MG TAB PO SCH (19:44)
[2017-07-31 21:33] LABS: Glucose,Whole Blood 321 mg/dL (75-99)
[2017-08-01 00:17] LABS: Glucose,Whole Blood 158 mg/dL (75-99)
[2017-08-01 01:31] LABS: Glucose,Whole Blood 155 mg/dL (75-99)
[2017-08-01] MEDS: HYDROcodone/APAP 5-325MG 1 EACH TAB PO PRN ×4 (01:47→17:57)
[2017-08-01 03:33] LABS: Glucose,Whole Blood 202 mg/dL (75-99)
[2017-08-01 05:27] LABS: Glucose,Whole Blood 163 mg/dL (75-99)
[2017-08-01] MEDS: LEVOTHYROXINE 100 MCG TAB PO SCH (06:20)
[2017-08-01] MEDS: LEVOTHYROXINE 50 MCG TAB PO SCH (06:20)
[2017-08-01 07:26] LABS: Glucose,Whole Blood 159 mg/dL (75-99)
[2017-08-01 07:39] LABS: Basophils % (A) 0 %; CHCM 32.4; Eosinophils # (A) 0.1 k/uL (0-0.7); Eosinophils % (A) 0 %; HCT 38.7 % (34.0-46.0); HDW 2.74; HGB 12.9 gm/dL (11.4-16.0); Luc # (Auto) 0.05; Luc % (Auto) 0; Lymphocytes % (A) 6 %; MCH 28.8 pg (25.0-35.0); MCHC 33.3 g/dL (31.0-37.0); MCV 86.6 fL (80.0-100.0); Mean Platelet Volume 6.9; Monocytes # (A) 0.4 k/uL (0-1.0); Monocytes % (A) 3 %; Neutrophils % (A) 90 %; RBC 4.47 m/uL (3.80-5.40); WBC 16.6 k/uL (3.8-10.6); WBC (Perox) 16.83
[2017-08-01] MEDS: INSULIN LISPRO (humaLOG) 300 UNIT/3 ML VIAL SQ SCH ×3 (07:51→18:02)
[2017-08-01] MEDS: NITROFURANTOIN MACROCRYSTAL 50 MG CAP PO SCH (07:53)
[2017-08-01] MEDS: RIVAROXABAN 10 MG TAB PO SCH (07:53)
[2017-08-01] MEDS: FERROUS SULFATE 325 MG TAB PO SCH ×2 (07:54→21:02)
[2017-08-01] MEDS: PANTOPRAZOLE 40 MG TABLET PO SCH ×2 (07:54→17:53)
[2017-08-01] MEDS: TOPIRAMATE 25 MG TAB PO SCH (07:54)
[2017-08-01] MEDS: METOPROLOL SUCCINATE (ER) 50 MG TAB.ER.24H PO SCH (07:54)
[2017-08-01] MEDS: POLYETHYLENE GLYCOL 3350 17 GM POWD.PACK PO SCH (07:55)
[2017-08-01] MEDS: ONDANSETRON 4 MG/2 ML VIAL IVP PRN ×2 (08:04→18:15)
[2017-08-01] MEDS: methylPREDNISolone SOD SUCCI 250 MG in SODIUM CHLORIDE 0.9% 100 ML IVPB SCH (08:10)
[2017-08-01 08:32] LABS: Anion Gap 12 mmol/L; Blood Urea Nitrogen 10 mg/dL (7-17); Carbon Dioxide 23 mmol/L (22-30); Chloride 107 mmol/L (98-107); Glucose 174 mg/dL (74-99); Non-African American GFR(MDRD) >60 (>60 ml/min/1.73 sqM); Potassium 4.1 mmol/L (3.5-5.1); Sodium 142 mmol/L (137-145)
[2017-08-01 08:55] LABS: Hemoglobin A1C 6.5 % (4.2-6.1)
[2017-08-01 10:14] LABS: Glucose,Whole Blood 241 mg/dL (75-99)
[2017-08-01 11:35] LABS: Glucose,Whole Blood 265 mg/dL (75-99)
[2017-08-01] MEDS ORDERED: LACTULOSE 20 GM/30 ML CUP PO ONE (11:42)
[2017-08-01] MEDS: METOCLOPRAMIDE 10 MG TAB PO SCH ×3 (11:50→21:02)
[2017-08-01] MEDS ORDERED: METOCLOPRAMIDE 10 MG TAB PO SCH (12:30)
[2017-08-01 13:24] LABS: Glucose,Whole Blood 156 mg/dL (75-99)
--- NOTE | 2017-08-01 14:36 | P.PN ---
Subjective Principal diagnosis: Hemiplegic migraine Is a pleasant 37-year-old female continuing be evaluated by the neurology service for hemiplegic migraine. She has a long history of being treated for the same complaint. Recall that her migraines are fairly well controlled until she lost coverage through her insurance for her prophylactic Topamax. This is been restarted 25 mg a day we will continue to titrate this in outpatient setting likely up to 50 mg twice a day. She was started on IV Solu-Medrol and magnesium with when necessary [place] and she is slowly getting better. Her left-sided weakness symptoms are slowly resolving. Recall that her CT of the brain in the emergency room showed no acute intracranial abnormalities. It also failed to show any old infarct. It's time my exam she is resting comfortably in bed in no acute distress. She is using her left arm a little more today. She did have a spike in her glucose from the IV steroids, and has been placed on insulin drip for this. Objective - Vital Signs Vital signs: Vital Signs Temp 97.1 F L 08/01/17 07:00 Pulse 84 08/01/17 07:00 Resp 16 08/01/17 07:00 BP 114/67 08/01/17 07:00 Pulse Ox 100 08/01/17 07:00 Intake & Output 07/31/17 08/01/17 08/01/17 18:59 06:59 18:59 Intake Total 362.478 87.279 43.875 Balance 362.478 87.279 43.875 Weight 108.182 kg Intake: Intake, IV Titration 42.478 87.279 43.875 Amount Insulin Regular 100 unit 42.478 87.279 43.875 In Sodium Chloride 0.9% 100 ml @ Titrate IV .Q0M [facility] Rx#:[id number] Oral 320 Other: Voiding Method Bedside Commode Bedside Commode # Voids 2 2 1 - Constitutional General appearance: Present: no acute distress, obese - EENT Eyes: Present: EOMI, PERRLA. Absent: abnormal pupil, ptosis - Neck Neck: Present: normal ROM. Absent: rigidity - Cardiovascular Rhythm: regular - Neurologic Neurologic Comment(s): Patient is alert awake and oriented 3. Speech-language are normal. There is no facial asymmetry. There is a little improvement in the left upper and lower extremity strength sensation and movement. She reports being able to stand with physical therapy today. She was not able to take steps. - Labs CBC & Chem 7: 08/01/17 07:20 08/01/17 07:20 Labs: Abnormal Lab Results - Last 24 Hours (Table) 07/29/17 07/31/17 07/31/17 Range/Units 22:45 14:47 16:06 WBC (3.8-10.6) k/uL Neutrophils # (1.3-7.7) k/uL Creatinine (0.52-1.04) mg/dL Glucose (74-99) mg/dL POC Glucose (mg/dL) 371 H 361 H (75-99) mg/dL Hemoglobin A1c 6.5 H (4.2-6.1) % 07/31/17 07/31/17 07/31/17 Range/Units 16:30 17:02 17:26 WBC (3.8-10.6) k/uL Neutrophils # (1.3-7.7) k/uL Creatinine (0.52-1.04) mg/dL Glucose (74-99) mg/dL POC Glucose (mg/dL) 341 H 285 H 248 H (75-99) mg/dL Hemoglobin A1c (4.2-6.1) % 07/31/17 07/31/17 08/01/17 Range/Units 19:30 21:31 00:16 WBC (3.8-10.6) k/uL Neutrophils # (1.3-7.7) k/uL Creatinine (0.52-1.04) mg/dL Glucose (74-99) mg/dL POC Glucose (mg/dL) 309 H 321 H 158 H (75-99) mg/dL Hemoglobin A1c (4.2-6.1) % 08/01/17 08/01/17 08/01/17 Range/Units 01:30 03:31 05:25 WBC (3.8-10.6) k/uL Neutrophils # (1.3-7.7) k/uL Creatinine (0.52-1.04) mg/dL Glucose (74-99) mg/dL POC Glucose (mg/dL) 155 H 202 H 163 H (75-99) mg/dL Hemoglobin A1c (4.2-6.1) % 08/01/17 08/01/1708/01/17 Range/Units 07:14 07:20 07:20 WBC 16.6 H (3.8-10.6) k/uL Neutrophils # 15.0 H (1.3-7.7) k/uL Creatinine 0.49 L (0.52-1.04) mg/dL Glucose 174 H (74-99) mg/dL POC Glucose (mg/dL) 159 H (75-99) mg/dL Hemoglobin A1c (4.2-6.1) % 08/01/17 08/01/17 08/01/17 Range/Units 10:11 11:31 13:22 WBC (3.8-10.6) k/uL Neutrophils # (1.3-7.7) k/uL Creatinine (0.52-1.04) mg/dL Glucose (74-99) mg/dL POC Glucose (mg/dL) 241 H 265 H 156 H (75-99) mg/dL Hemoglobin A1c (4.2-6.1) % Assessment and Plan (1) Hemiplegia Status: Acute (2) Migraine Status: Chronic (3) Abscess Status: Suspected (4) History of DVT (deep vein thrombosis) Status: Chronic (5) Hypercoagulable state Status: Chronic (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 We will continue her on IV Solu-Medrol 250 mg every 8 hours along with magnesium 1 g every 8 hours. She will continue Accu-Cheks and insulin. She was already on Zofran and Reglan on a regular basis for her gastroparesis. Continue pain management and treatment as ordered already. Alert us for any change in neurological status. Continue physical therapy and likely transfer to a rehabilitation center. She indicates preferring [place]. We reinstituted Topamax as prophylactic medication and this can be increased in outpatient setting. She agrees with this as recently she has been turned down by her insurance company for this medication. Recommended titration is starting with 25 mg once daily, increasing to twice a day dosing, then increasing total dose by 25 mg every 7 days until 50 mg twice a day daily is reached. She may use her choice of abortive medications as needed. Note that triptans are contraindicated in hemiplegic migraines. I have reviewed the history and physical on the above patient. I have reviewed the above note, and agree.
[2017-08-01 15:44] LABS: Glucose,Whole Blood 192 mg/dL (75-99)
[2017-08-01] MEDS: INSULIN REGULAR 100 UNIT in SODIUM CHLORIDE 0.9% 100 ML IV SCH (16:08)
[2017-08-01 17:49] LABS: Glucose,Whole Blood 166 mg/dL (75-99)
[2017-08-01 19:28] LABS: Glucose,Whole Blood 252 mg/dL (75-99)
--- NOTE | 2017-08-01 19:40 | P.PN ---
Progress Note - Text DATE OF SERVICE: 08/01/2017 PRESENTING COMPLAINT: Left-sided weakness, headache HISTORY OF PRESENT ILLNESS: 37-year-old female with history of hemiplegic migraines developed a headache and some weakness on the left side, no visual changes no changes in speech. Was on Topamax however stopped taking it for about 6 months due to insurance reasons. Admitted for hemiplegic migraines INTERVAL HISTORY: 08/01/2017: Patient lying in bed with eyes covered, left-sided weakness mildly improved. IV steroids continue per neurology with magnesium supplementation and Topamax. Continues to have nausea in between 30 and 40% of her meals. Last BM prior to admission, MiraLAX added. 07/31/2017: Patient lying in bed eyes covered, continues to have a headache and left-sided weakness is mildly improved. Neurology has started IV steroids and IV magnesium , along with Topamax. Some nausea, eating about 20% of her meals as she can, last BM prior to admission, states that she has waxing and waning of bowel activity, MiraLAX added. REVIEW OF SYSTEMS: Done for constitutional ,cardiovascular, GI, pulmonary , neurologic with relevant findings as above. CURRENT MEDICATIONS [place], Ativan, metoprolol 50 mg by mouth daily Macrodantin 100 mg by mouth daily Protonix 40 mg by mouth twice a day, Zanaflex 8 mg by mouth at bedtime, Topamax 25 mg by mouth daily. Insulin drip, Reglan PHYSICAL EXAM VITAL SIGNS: Temperature 97.1, pulse 84, respiratory rate 16, blood pressure 114/67, oxygen saturation a percent on room air. GENERAL APPEARANCE: Lying in bed, not in distress. EYES: Pupils equal. Conjunctiva normal. NECK: JVD not raised. Mass not palpable. RESPIRATORY: Respiratory effort normal. Lungs clear to auscultation. CARDIOVASCULAR: First and second sounds normal. No edema. ABDOMEN: Soft. Liver and spleen not palpable. No tenderness. No mass palpable. PSYCHIATRY: Alert and oriented x3. Mood and affect normal. NEUROLOGICAL: Cranial nerves grossly intact. No facial asymmetry. Power and sensation on the left is 3/5, decreased sensation on the left side bilateral feet and toes are curved in INVESTIGATIONS: White blood cell count 16.6, creatinine 0.49, Accu-Cheks noted. ASSESSMENT: -Hemiplegic migraine with left-sided weakness, slow to respond -hyperglycemia due to high dose steroid use, improving -Obesity, body mass index 39.2, -Hypothyroidism, -Hyperlipidemia. -Mitochondrial disease. -Bipolar disorder, controlled -Disc autonomic progressive neurologic disorder. -Lymphedema of the left arm from prior deep venous thrombosis -Patent foramen ovale. -Polycystic ovarian syndrome. -Chronic constipation PLAN: We'll continue Topamax at 25 mg per neurology, will titrate up to 50 mg in the outpatient setting. Accu-Cheks and insulin drip will continue as well as Zofran and Reglan for her gastroparesis. Discharge planning in the next 24-48 hours. Plan of care discussed with the patient the bedside we will continue to monitor closely. COAGULATING DRYING SUPERVISOR statement: Patient was seen and examined by nurse practitioner Amena Nice and all elements of the case discussed with attending Dr. Cheek
--- NOTE | 2017-08-01 20:08 | PN ---
PROGRESS NOTE DATE OF SERVICE: 07/31/2017 ATTENDING NOTE: This patient was seen and examined by me. I discussed this with my nurse practitioner Ms. Nice. This patient presented with left-sided weakness, felt to be hemiplegic migraine. Patient is on IV steroids. Topamax will also be resumed; patient was not taking it before, per Neurology. Patient tolerating a diet. PHYSICAL EXAMINATION: Lungs clear. CARDIOVASCULAR: First and second sounds normal. Power on the left side is 4/5. INVESTIGATIONS: Accu-Cheks are noted. UA positive. ASSESSMENT: 1. Acute hemiplegic migraine with left-sided weakness, on IV Solu-Medrol, slow to respond. 2. Hyperglycemia secondary to high-dose steroids. 3. Leukocytosis from high-dose steroids. PLAN: Discussed with Neurology. At the present time, will continue with IV steroids, IV magnesium. Topamax has been started. Headache is better. Patient is eating. Will follow. MMODL / IJN: [id number] /
--- NOTE | 2017-08-01 20:44 | EEG ---
ELECTROENCEPHALOGRAM REPORT DATE OF SERVICE: 08/01/2017 REASON FOR TESTING: Headache and dizziness. DESCRIPTION OF THE PROCEDURE: This EEG was performed using a 21-channel digital electroencephalograph, following international 10-20 system. DESCRIPTION OF THE RECORDING: From the beginning of the tracing, and with the patient's eyes closed, the background rhythm was mostly consisting of 9 Hertz alpha frequency in the posterior occipital leads. No obvious asymmetry is seen. Occasional movement and lead artifacts are seen. Photic stimulation was performed with a minimal driving response seen. No pathological waves were elicited. Hyperventilation was not performed. The patient remains awake throughout the tracing. No epileptiform discharges were seen. Her EKG lead showed a regular rate and rhythm. INTERPRETATION: This awake EEG can be considered within normal limits. There was no asymmetry seen. No epileptiform discharges were noticed. The absence of epileptiform discharges does not rule out the diagnosis of epilepsy; therefore clinical correlation is recommended. MMVERNELL / JB: [id number] /
[2017-08-01] MEDS: tiZANidine 4 MG TAB PO SCH (21:02)
[2017-08-01] MEDS: PRAVASTATIN SODIUM 40 MG TAB PO SCH (21:02)
[2017-08-01 21:48] LABS: Glucose,Whole Blood 213 mg/dL (75-99)
[2017-08-01 23:37] LABS: Glucose,Whole Blood 185 mg/dL (75-99)
[2017-08-02 01:38] LABS: Glucose,Whole Blood 169 mg/dL (75-99)
[2017-08-02] MEDS: ONDANSETRON 4 MG/2 ML VIAL IVP PRN ×3 (02:29→18:38)
[2017-08-02] MEDS: HYDROcodone/APAP 5-325MG 1 EACH TAB PO PRN ×3 (02:29→17:29)
[2017-08-02 03:35] LABS: Glucose,Whole Blood 165 mg/dL (75-99)
[2017-08-02 05:32] LABS: Glucose,Whole Blood 133 mg/dL (75-99)
[2017-08-02] MEDS: LEVOTHYROXINE 50 MCG TAB PO SCH (06:44)
[2017-08-02] MEDS: LEVOTHYROXINE 100 MCG TAB PO SCH (06:44)
[2017-08-02 07:17] LABS: Glucose,Whole Blood 127 mg/dL (75-99)
--- NOTE | 2017-08-02 07:21 | PN ---
PROGRESS NOTE DATE OF SERVICE: 08/01/2017 ATTENDING NOTE: This patient seen and examined by me. I discussed with my nurse practitioner, Ms. Nice. The patient's left-sided weakness persists 4/5. Patient getting Topamax. Tolerating some diet. PHYSICAL EXAMINATION: On examination, power on the left side is 4/5, some decreased sensation. ASSESSMENT: 1. Acute migrainous hemiplegia. 2. Cephalgia. 3. Hyperglycemia from steroids. PLAN: Patient remains on magnesium, IV steroids per Neurology. Topamax was added. Looking for patient to go to inpatient rehab as the left side remains to be a weak. MMODL / IJN: [id number] /
[2017-08-02] MEDS: METOCLOPRAMIDE 10 MG TAB PO SCH ×4 (07:55→21:30)
[2017-08-02] MEDS: INSULIN LISPRO (humaLOG) 300 UNIT/3 ML VIAL SQ SCH ×4 (07:55→23:02)
[2017-08-02] MEDS: TOPIRAMATE 25 MG TAB PO SCH (07:55)
[2017-08-02] MEDS: NITROFURANTOIN MACROCRYSTAL 50 MG CAP PO SCH (07:56)
[2017-08-02] MEDS: METOPROLOL SUCCINATE (ER) 50 MG TAB.ER.24H PO SCH (07:56)
[2017-08-02] MEDS: RIVAROXABAN 10 MG TAB PO SCH (07:56)
[2017-08-02] MEDS: FERROUS SULFATE 325 MG TAB PO SCH ×2 (07:56→21:31)
[2017-08-02] MEDS: PANTOPRAZOLE 40 MG TABLET PO SCH ×2 (07:56→17:32)
[2017-08-02 08:26] LABS: Glucose,Whole Blood 162 mg/dL (75-99)
[2017-08-02 10:51] LABS: Glucose,Whole Blood 164 mg/dL (75-99)
[2017-08-02] MEDS: INSULIN REGULAR 100 UNIT in SODIUM CHLORIDE 0.9% 100 ML IV SCH (14:29)
[2017-08-02 15:55] LABS: Glucose,Whole Blood 134 mg/dL (75-99)
[2017-08-02 15:55] LABS: Glucose,Whole Blood 238 mg/dL (75-99)
[2017-08-02 16:58] LABS: Glucose,Whole Blood 250 mg/dL (75-99)
--- NOTE | 2017-08-02 17:13 | P.PN ---
Progress Note - Text DATE OF SERVICE: 08/02/2017 PRESENTING COMPLAINT: Left-sided weakness, headache HISTORY OF PRESENT ILLNESS: 37-year-old female with history of hemiplegic migraines developed a headache and some weakness on the left side, no visual changes no changes in speech. Was on Topamax however stopped taking it for about 6 months due to insurance reasons. Admitted for hemiplegic migraines INTERVAL HISTORY: 08/02/2017: Patient lying in bed with eyes covered, left-sided weakness improving. IV steroids continue per neurology, magnesium supplementation and Topamax. Continues to have nausea secondary to gastroparesis Reglan given before meals. Eating 30-40% of her meals, last BM prior to admission, MiraLAX given today as well as lactulose. Working with physical therapy 08/01/2017: Patient lying in bed with eyes covered, left-sided weakness mildly improved. IV steroids continue per neurology with magnesium supplementation and Topamax. Continues to have nausea in between 30 and 40% of her meals. Last BM prior to admission, MiraLAX added. EEG completed and is within normal limits. 07/31/2017: Patient lying in bed eyes covered, continues to have a headache and left-sided weakness is mildly improved. Neurology has started IV steroids and IV magnesium , along with Topamax. Some nausea, eating about 20% of her meals as she can, last BM prior to admission, states that she has waxing and waning of bowel activity, MiraLAX added. REVIEW OF SYSTEMS: Done for constitutional ,cardiovascular, GI, pulmonary , neurologic with relevant findings as above. CURRENT MEDICATIONS [place], Ativan, metoprolol 50 mg by mouth daily Macrodantin 100 mg by mouth daily Protonix 40 mg by mouth twice a day, Zanaflex 8 mg by mouth at bedtime, Topamax 25 mg by mouth daily. Insulin drip, Reglan PHYSICAL EXAM VITAL SIGNS: Temperature 97.5, pulse 80, respiratory rate 16, blood pressure 114/63, oxygen saturation 96% on room air. GENERAL APPEARANCE: Lying in bed, not in distress. EYES: Pupils equal. Conjunctiva normal. NECK: JVD not raised. Mass not palpable. RESPIRATORY: Respiratory effort normal. Lungs clear to auscultation. CARDIOVASCULAR: First and second sounds normal. No edema. ABDOMEN: Soft. Liver and spleen not palpable. No tenderness. No mass palpable. PSYCHIATRY: Alert and oriented x3. Mood and affect normal. NEUROLOGICAL: Cranial nerves grossly intact. No facial asymmetry. Power and sensation on the left is 3/5, decreased sensation on the left side bilateral feet and toes are curved in INVESTIGATIONS: Accu-Cheks noted. EEG: Within normal limits ASSESSMENT: -Acute migrainous hemiplegia with left-sided weakness, slow to respond -Cephalgia -hyperglycemia due to high dose steroid use, improving -Obesity, body mass index 39.2, -Hypothyroidism, -Hyperlipidemia. -Mitochondrial disease. -Bipolar disorder, controlled -Disc autonomic progressive neurologic disorder. -Lymphedema of the left arm from prior deep venous thrombosis -Patent foramen ovale. -Polycystic ovarian syndrome. -Chronic constipation PLAN: We'll continue IV steroids and magnesium per neurology, Topamax at 25 mg per neurology, will titrate up to 50 mg in the outpatient setting. Accu-Cheks and insulin drip will continue as well as Zofran and Reglan for her gastroparesis. Discharge planning tomorrow to [facility] for rehabilitation in the next 24-48 hours. Plan of care discussed with the patient the bedside we will continue to monitor closely. SORTER PRICER statement: Patient was seen and examined by nurse practitioner Amena Nice and all elements of the case discussed with attending Dr. Cheek
[2017-08-02 18:36] LABS: Glucose,Whole Blood 253 mg/dL (75-99)
[2017-08-02 20:58] LABS: Glucose,Whole Blood 182 mg/dL (75-99)
[2017-08-02] MEDS: tiZANidine 4 MG TAB PO SCH (21:30)
[2017-08-02] MEDS: PRAVASTATIN SODIUM 40 MG TAB PO SCH (21:30)
[2017-08-02 22:40] LABS: Glucose,Whole Blood 239 mg/dL (75-99)
[2017-08-02] MEDS: INSULIN GLARGINE 100 UNIT/ML 10 ML VIAL SQ SCH (23:01)
[2017-08-03] MEDS: HYDROcodone/APAP 5-325MG 1 EACH TAB PO PRN ×3 (01:21→18:23)
[2017-08-03] MEDS: ONDANSETRON 4 MG/2 ML VIAL IVP PRN ×3 (01:21→18:23)
[2017-08-03 03:01] LABS: Glucose,Whole Blood 179 mg/dL (75-99)
[2017-08-03 07:42] LABS: Glucose,Whole Blood 185 mg/dL (75-99)
[2017-08-03] MEDS: INSULIN LISPRO (humaLOG) 300 UNIT/3 ML VIAL SQ SCH ×7 (08:17→21:10)
[2017-08-03] MEDS: NITROFURANTOIN MACROCRYSTAL 50 MG CAP PO SCH (08:18)
[2017-08-03] MEDS: FERROUS SULFATE 325 MG TAB PO SCH ×2 (08:18→20:55)
[2017-08-03] MEDS: LEVOTHYROXINE 50 MCG TAB PO SCH (08:18)
[2017-08-03] MEDS: LEVOTHYROXINE 100 MCG TAB PO SCH (08:18)
[2017-08-03] MEDS: TOPIRAMATE 25 MG TAB PO SCH (08:19)
[2017-08-03] MEDS: METOCLOPRAMIDE 10 MG TAB PO SCH ×4 (08:19→20:55)
[2017-08-03] MEDS: RIVAROXABAN 10 MG TAB PO SCH (08:19)
[2017-08-03] MEDS: PANTOPRAZOLE 40 MG TABLET PO SCH ×2 (08:19→16:34)
[2017-08-03] MEDS: METOPROLOL SUCCINATE (ER) 50 MG TAB.ER.24H PO SCH (08:22)
[2017-08-03] MEDS: POLYETHYLENE GLYCOL 3350 17 GM POWD.PACK PO SCH (08:22)
[2017-08-03 08:41] LABS: Basophils % (A) 0 %; CH 28.7; CHCM 33.2; Eosinophils % (A) 0 %; HCT 37.8 % (34.0-46.0); HDW 2.67; HGB 12.4 gm/dL (11.4-16.0); Luc # (Auto) 0.04; Luc % (Auto) 0; Lymphocytes # (A) 0.8 k/uL (1.0-4.8); Lymphocytes % (A) 7 %; MCH 28.6 pg (25.0-35.0); MCHC 32.9 g/dL (31.0-37.0); MCV 86.8 fL (80.0-100.0); Mean Platelet Volume 7.5; Monocytes # (A) 0.3 k/uL (0-1.0); Monocytes % (A) 3 %; Neutrophils # (A) 10.7 k/uL (1.3-7.7); Neutrophils % (A) 90 %; RBC 4.35 m/uL (3.80-5.40); RDW 14.6 % (11.5-15.5); WBC 11.9 k/uL (3.8-10.6); WBC (Perox) 11.79
[2017-08-03 09:02] LABS: Anion Gap 15 mmol/L; Blood Urea Nitrogen 13 mg/dL (7-17); Calcium 9.5 mg/dL (8.4-10.2); Carbon Dioxide 21 mmol/L (22-30); Chloride 105 mmol/L (98-107); Glucose 180 mg/dL (74-99); Non-African American GFR(MDRD) >60 (>60 ml/min/1.73 sqM); Potassium 4.2 mmol/L (3.5-5.1); Sodium 141 mmol/L (137-145)
--- NOTE | 2017-08-03 10:27 | PN ---
PROGRESS NOTE DATE OF SERVICE: 08/02/2017 ATTENDING NOTE: This patient is seen and examined by me. I discussed with the FLOOR TECH, Ms. Nice. The patient has got hemiplegic migraine, on IV steroids, left-sided weaknesses, probably about 3/5. Tolerating a diet. PHYSICAL EXAM: Lungs are clear. Cardiovascular first and second sounds are normal. Left-sided power is 3 to 4/5. Accu-Cheks are noted running high on insulin drip. PLAN: Patient will be completing a course of steroids as per Neurology. In the meantime, will start the patient on Lantus. MMODL / IJN: [id number] /
[2017-08-03 12:17] LABS: Glucose,Whole Blood 215 mg/dL (75-99)
[2017-08-03 12:22] LABS: Hemoglobin A1C 6.4 % (4.2-6.1)
--- NOTE | 2017-08-03 14:41 | P.PN ---
Progress Note - Text DATE OF SERVICE: 08/03/2017 PRESENTING COMPLAINT: Left-sided weakness, headache HISTORY OF PRESENT ILLNESS: 37-year-old female with history of hemiplegic migraines developed a headache and some weakness on the left side, no visual changes no changes in speech. Was on Topamax however stopped taking it for about 6 months due to insurance reasons. Admitted for hemiplegic migraines INTERVAL HISTORY: 08/03/2017: Sitting up in the bed, left-sided weakness about the same not much improvement in the last 24 hours. IV steroids discontinued per neurology Topamax continues. Appetite low asymmetry 30-40% of her meals. Last BM prior to admission, stool softeners/cathartics provided and available. Continues to work with physical therapy. 08/02/2017: Patient lying in bed with eyes covered, left-sided weakness improving. IV steroids continue per neurology, magnesium supplementation and Topamax. Continues to have nausea secondary to gastroparesis Reglan given before meals. Eating 30-40% of her meals, last BM prior to admission, MiraLAX given today as well as lactulose. Working with physical therapy 08/01/2017: Patient lying in bed with eyes covered, left-sided weakness mildly improved. IV steroids continue per neurology with magnesium supplementation and Topamax. Continues to have nausea in between 30 and 40% of her meals. Last BM prior to admission, MiraLAX added. EEG completed and is within normal limits. 07/31/2017: Patient lying in bed eyes covered, continues to have a headache and left-sided weakness is mildly improved. Neurology has started IV steroids and IV magnesium , along with Topamax. Some nausea, eating about 20% of her meals as she can, last BM prior to admission, states that she has waxing and waning of bowel activity, MiraLAX added. REVIEW OF SYSTEMS: Done for constitutional ,cardiovascular, GI, pulmonary , neurologic with relevant findings as above. CURRENT MEDICATIONS [place], Ativan, metoprolol 50 mg by mouth daily Macrodantin 100 mg by mouth daily Protonix 40 mg by mouth twice a day, Zanaflex 8 mg by mouth at bedtime, Topamax 25 mg by mouth daily. Insulin drip, Reglan, Lantus PHYSICAL EXAM VITAL SIGNS: Temp to 97.1, pulse 85, respirations 18, blood pressure 135/84, oxygen saturation 98% on room air GENERAL APPEARANCE: Sitting up in a chair, not in distress. EYES: Pupils equal. Conjunctiva normal. NECK: JVD not raised. Mass not palpable. RESPIRATORY: Respiratory effort normal. Lungs clear to auscultation. CARDIOVASCULAR: First and second sounds normal. No edema. ABDOMEN: Soft. Liver and spleen not palpable. No tenderness. No mass palpable. PSYCHIATRY: Alert and oriented x3. Mood and affect normal. NEUROLOGICAL: Cranial nerves grossly intact. No facial asymmetry. Power and sensation on the left is 3/5, decreased sensation on the left side bilateral feet and toes are curved in INVESTIGATIONS: White blood cell count 11.9, creatinine 0.49, Accu-Cheks noted. ASSESSMENT: -Acute migrainous hemiplegia with left-sided weakness, slow to respond -Cephalgia -hyperglycemia due to high dose steroid use, improving -Obesity, body mass index 39.2, -Hypothyroidism, -Hyperlipidemia. -Mitochondrial disease. -Bipolar disorder, controlled -Disc autonomic progressive neurologic disorder. -Lymphedema of the left arm from prior deep venous thrombosis -Patent foramen ovale. -Polycystic ovarian syndrome. -Chronic constipation PLAN: IV steroids discontinued today per neurology, Topamax at 25 mg per neurology, will titrate up to 50 mg in the outpatient setting. Accu-Cheks Lantus will continue as well as Zofran and Reglan for her gastroparesis. Discharge planning tomorrow to [facility] or [facility] for rehabilitation in the next 24-48 hours. Plan of care discussed with the patient the bedside we will continue to monitor closely. PRIZE COORDINATOR statement: Patient was seen and examined by nurse practitioner Amena Nice and all elements of the case discussed with attending Dr. Cheek
[2017-08-03 17:01] LABS: Glucose,Whole Blood 252 mg/dL (75-99)
--- NOTE | 2017-08-03 17:10 | PN ---
PROGRESS NOTE DATE OF SERVICE: 08/03/17. ATTENDING NOTE: The patient was seen and examined by me. I discussed with my GRAIN BLENDER, Ms. Nice. The patient continues to be on IV steroids, left-sided weakness persists. Tolerating a diet. PHYSICAL EXAMINATION: On examination left sided weakness, 3 to 4/5. Potassium 4.2. Accu-Cheks are noted. ASSESSMENT: Left-sided hemiplegic migraine. Waiting for the patient go down to the [facility]. CARLIN / JB: [id number] /
[2017-08-03] MEDS: PRAVASTATIN SODIUM 40 MG TAB PO SCH (20:56)
[2017-08-03] MEDS: tiZANidine 4 MG TAB PO SCH (20:56)
[2017-08-03] MEDS: INSULIN GLARGINE 100 UNIT/ML 10 ML VIAL SQ SCH (21:05)
[2017-08-03 21:22] LABS: Glucose,Whole Blood 198 mg/dL (75-99)
[2017-08-04] MEDS: HYDROcodone/APAP 5-325MG 1 EACH TAB PO PRN ×2 (02:19→16:57)
[2017-08-04] MEDS: ONDANSETRON 4 MG/2 ML VIAL IVP PRN ×2 (02:19→09:34)
[2017-08-04] MEDS: LEVOTHYROXINE 100 MCG TAB PO SCH (06:34)
[2017-08-04] MEDS: LEVOTHYROXINE 50 MCG TAB PO SCH (06:35)
[2017-08-04 07:22] LABS: Glucose,Whole Blood 151 mg/dL (75-99)
[2017-08-04] MEDS: FERROUS SULFATE 325 MG TAB PO SCH ×2 (07:56→21:36)
[2017-08-04] MEDS: PANTOPRAZOLE 40 MG TABLET PO SCH ×2 (07:56→16:56)
[2017-08-04] MEDS: TOPIRAMATE 25 MG TAB PO SCH (07:56)
[2017-08-04] MEDS: NITROFURANTOIN MACROCRYSTAL 50 MG CAP PO SCH (07:56)
[2017-08-04] MEDS: METOCLOPRAMIDE 10 MG TAB PO SCH ×4 (07:56→21:36)
[2017-08-04] MEDS: METOPROLOL SUCCINATE (ER) 50 MG TAB.ER.24H PO SCH (07:56)
[2017-08-04] MEDS: INSULIN LISPRO (humaLOG) 300 UNIT/3 ML VIAL SQ SCH ×7 (07:56→21:52)
[2017-08-04] MEDS: RIVAROXABAN 10 MG TAB PO SCH (07:56)
[2017-08-04 09:04] LABS: Anion Gap 11 mmol/L; Blood Urea Nitrogen 15 mg/dL (7-17); Calcium 9.2 mg/dL (8.4-10.2); Carbon Dioxide 22 mmol/L (22-30); Chloride 106 mmol/L (98-107); Glucose 136 mg/dL (74-99); Non-African American GFR(MDRD) >60 (>60 ml/min/1.73 sqM); Potassium 4.5 mmol/L (3.5-5.1); Sodium 139 mmol/L (137-145)
[2017-08-04 11:42] LABS: Glucose,Whole Blood 333 mg/dL (75-99)
--- NOTE | 2017-08-04 13:54 | CDI ---
In responding to this query, please exercise your independent professional judgment. The [facility] Coding Staff and Clinical Documentation Specialists appreciate your assistance in clarifying documentation, maintaining compliance with coding guidelines, accurately documenting patients condition and capturing severity of illness. The fact that a question is asked does not imply that any particular answer is desired or expected. Communication forms are a method of clarifying documentation and are not made part of the Legal Health Record. Thank you in advance for your clarification. Last Revision, September 2015 Aj Blakely [address] [place] [address] Documentation Clarification Form Date: 08/04/2017 1:25:00 PM From: Kathryn Davis RN, CCDS Admit Date: 08/02/2017 7:40:00 AM Patient Name: Francisca Khoury Visit Number: [id number] Discharge Date: Dr. Leah Vickers/Omega Fuentes PA-C Hemiplegic migraine is noted in your consult and progress note and further specificity if needed. Patient history/risk factors CVA, DVT, and Hemiplegic migraine Clinical Indicators: Present with complaint of migraines with left-sided weakness CT brain: no acute intracranial abnormalities Vital Signs:114/67 84 116 97.1 100 % RA Other Clinical Indicators: She has history of frequent migraine headaches without weakness. She is sensitive to light and sound. She is nauseated, has not vomited. Treatment Methylprednisone IV Magnesium Sulfate IV Velma PO PRN Reglan PO ACHS Zofran IV Monitor blood sugars with coverage per orders In your professional opinion, can you please clarify hemiplegic migraine With Refractory migraine (specify if status migrainosus other or unspecified Intractable (hemiplegic migraine) Other Unable to determine Please document in your progress notes in order to capture severity of illness and risk of mortality. Include clinical findings that support your diagnosis. FYI: Press F11 to launch patient chart. PAM
[2017-08-04 16:53] LABS: Glucose,Whole Blood 102 mg/dL (75-99)
[2017-08-04 20:37] LABS: Glucose,Whole Blood 160 mg/dL (75-99)
[2017-08-04] MEDS: tiZANidine 4 MG TAB PO SCH (21:36)
[2017-08-04] MEDS: PRAVASTATIN SODIUM 40 MG TAB PO SCH (21:36)
[2017-08-04] MEDS: INSULIN GLARGINE 100 UNIT/ML 10 ML VIAL SQ SCH (21:55)
[2017-08-05] MEDS: HYDROcodone/APAP 5-325MG 1 EACH TAB PO PRN (05:06)
[2017-08-05] MEDS: LEVOTHYROXINE 50 MCG TAB PO SCH (06:33)
[2017-08-05] MEDS: LEVOTHYROXINE 100 MCG TAB PO SCH (06:33)
[2017-08-05 07:36] LABS: Glucose,Whole Blood 99 mg/dL (75-99)
[2017-08-05] MEDS: INSULIN LISPRO (humaLOG) 300 UNIT/3 ML VIAL SQ SCH ×4 (07:55→12:39)
[2017-08-05] MEDS: METOPROLOL SUCCINATE (ER) 50 MG TAB.ER.24H PO SCH (08:00)
[2017-08-05] MEDS: NITROFURANTOIN MACROCRYSTAL 50 MG CAP PO SCH (08:00)
[2017-08-05] MEDS: TOPIRAMATE 25 MG TAB PO SCH (08:01)
[2017-08-05] MEDS: METOCLOPRAMIDE 10 MG TAB PO SCH ×2 (08:01→12:39)
[2017-08-05] MEDS: RIVAROXABAN 10 MG TAB PO SCH (08:01)
[2017-08-05] MEDS: FERROUS SULFATE 325 MG TAB PO SCH (08:01)
[2017-08-05] MEDS: POLYETHYLENE GLYCOL 3350 17 GM POWD.PACK PO SCH (08:01)
[2017-08-05] MEDS: PANTOPRAZOLE 40 MG TABLET PO SCH (08:01)
[2017-08-05 08:02] VITALS: RESP 16
[2017-08-05 08:34] LABS: Anion Gap 15 mmol/L; Blood Urea Nitrogen 15 mg/dL (7-17); Calcium 9.4 mg/dL (8.4-10.2); Carbon Dioxide 20 mmol/L (22-30); Chloride 104 mmol/L (98-107); Glucose 148 mg/dL (74-99); Non-African American GFR(MDRD) >60 (>60 ml/min/1.73 sqM); Potassium 4.5 mmol/L (3.5-5.1); Sodium 139 mmol/L (137-145)
[2017-08-05] MEDS: ONDANSETRON 4 MG/2 ML VIAL IVP PRN (08:54)
[2017-08-05 12:11] LABS: Glucose,Whole Blood 215 mg/dL (75-99)
--- NOTE | 2017-08-05 14:43 | P.DS ---
Providers Date of admission: 08/02/17 07:40 Expected date of discharge: 08/05/17 Attending physician: Fredi Thomas Consults: 07/30/17 00:32 Consult Physician Stat Consulting Provider: Leah Vickers Consult Reason/Comments: Hemiplegia; Migraine Do you want consulting provider notified?: Yes Primary care physician: Jayesh Eli [facility] Course: Final Diagnoses: -Acute Left sided hemiplegic migrane -hyperglycemia, steroid-induced -Obesity, body mass index 39.2, -Hypothyroidism, -Hyperlipidemia. -Mitochondrial disease. -Bipolar disorder, controlled -Disc autonomic progressive neurologic disorder. -Lymphedema of the left arm from prior deep venous thrombosis -Patent foramen ovale. -Chronic constipation Hospital course: This is a 37-year-old female with history of hemiplegic migraines, developed a headache accompanied by left-sided weakness, no visual changes no changes in speech. Previously on Topamax however stopped taking it for about 6 months due to insurance reasons. Admitted for hemiplegic migraines. Evaluated by neurology. EEG reported within normal limits. Brain CT reported as normal. Maintained on high-dose IV steroids, Topamax reinstituted. Left-sided weakness improving;left foot drop.Significant clinical improvement. Cleared by neurology for discharge. Patient is being discharged to subacute rehab in a stable condition with guarded prognosis. The impression and plan of care has been dictated as directed as a scribe. : I performed a H&P examination of this patient and discussed the same with the dictator. I agree with the dictator's note. Any additional findings/opinions/ etc. will be noted. Patient Condition at Discharge: Stable Plan - Discharge Summary New Discharge Prescriptions: New Pantoprazole [Protonix] 40 mg PO AC-BID #20 tab Polyethylene Glycol 3350 [Miralax] 17 gm PO MOWEFR pack Topiramate [Topamax] 25 mg PO DAILY #10 tab HYDROcodone/APAP 5-325MG [[place] 5-325] 1 each PO Q4HR PRN #20 tab PRN Reason: Pain LORazepam [Ativan] 0.5 mg PO HS PRN #20 tab PRN Reason: Anxiety Insulin Glargine [Lantus] 30 unit SQ HS vial INSULIN LISPRO (HumaLOG) [humaLOG] 0 unit SQ ACHS #1 vial Continue Pravastatin Sodium [Pravachol] 40 mg PO HS Cyanocobalamin [Vitamin B-12] 2,000 mcg PO DAILY Ferrous Sulfate [Iron (65 MG Elemental)] 325 mg PO BID Ondansetron [Zofran] 8 mg PO Q8HR PRN #0 tab PRN Reason: Nausea And Vomiting tiZANidine [Zanaflex] 8 mg PO HS Rivaroxaban [Xarelto] 20 mg PO DAILY Metoclopramide [Reglan] 10 mg PO ACHS Metoprolol Succinate [Toprol XL] 50 mg PO DAILY Levothyroxine Sodium [Synthroid] 200 mcg PO DAILY Levothyroxine Sodium [Synthroid] 50 mcg PO DAILY Discharge Medication List Pravastatin Sodium [Pravachol] 40 mg PO HS 01/24/16 [History] Cyanocobalamin [Vitamin B-12] 2,000 mcg PO DAILY 01/25/16 [History] Ferrous Sulfate [Iron (65 MG Elemental)] 325 mg PO BID 07/14/16 [History] Ondansetron [Zofran] 8 mg PO Q8HR PRN #0 tab 08/12/16 [Rx] Rivaroxaban [Xarelto] 20 mg PO DAILY 03/09/17 [History] tiZANidine [Zanaflex] 8 mg PO HS 03/09/17 [History] Levothyroxine Sodium [Synthroid] 50 mcg PO DAILY 07/29/17 [History] Levothyroxine Sodium [Synthroid] 200 mcg PO DAILY 07/29/17 [History] Metoclopramide [Reglan] 10 mg PO ACHS 07/29/17 [History] Metoprolol Succinate [Toprol XL] 50 mg PO DAILY 07/29/17 [History] Pantoprazole [Protonix] 40 mg PO AC-BID #20 tab 08/04/17 [Rx] Polyethylene Glycol 3350 [Miralax] 17 gm PO MOWEFR pack 08/04/17 [Rx] Topiramate [Topamax] 25 mg PO DAILY #10 tab 08/04/17 [Rx] HYDROcodone/APAP 5-325MG [[place] 5-325] 1 each PO Q4HR PRN #20 tab 08/05/17 [Rx] INSULIN LISPRO (HumaLOG) [humaLOG] 0 unit SQ ACHS #1 vial 08/05/17 [Rx] Insulin Glargine [Lantus] 30 unit SQ HS vial 08/05/17 [Rx] LORazepam [Ativan] 0.5 mg PO HS PRN #20 tab 08/05/17 [Rx] Follow up Appointment(s)/Referral(s): Anson Velazco DO [STAFF PHYSICIAN] - 3 Days (While at [facility]) Jayesh Eli DO [Primary Care Provider] - 1 Week (After DC from [facility] rehab) Leah Vickers MD [STAFF PHYSICIAN] - 1 Week Ambulatory/Diagnostic Orders: Basic Metabolic Panel [LAB.AMB] Location: Determined By Patient Patient Instructions/Handouts: Migraine Headache (GEN) Activity/Diet/Wound Care/Special Instructions: PH MED[facility] ECF CBC, BMP in 3 days Per neurology: Topamax reinstituted as prophylactic medication, to be increased in the outpatient setting; Recommended titration : 25 mg daily, increasing to twice a day dosing, and increasing total dose by 25 mg every 7 days until 50 mg twice daily is achieved. Discharge Disposition: TRANSFER TO SNF/F
--- NOTE | 2017-08-05 15:27 | P.PN ---
Subjective Date of service 08/04/2017. Progress note being dictated for Dr. Thomas Interval history:This is a 37-year-old female with history of hemiplegic migraines, admitted for hemiplegic migraines accompanied by left-sided weakness , no visual changes no changes in speech. Previously on Topamax however stopped taking it for about 6 months due to insurance reasons. Evaluated by neurology. EEG reported within normal limits. Brain CT reported as normal. Maintained on high-dose IV steroids, Topamax reinstituted. PT/OT. Left-sided weakness improving;left foot drop present.Significant clinical improvement. Completed IV dose steroid regimen as recommended per neurology. Continues on Topamax. Currently denies headache, lightheadedness, dizziness or focal deficits. Denies chest pain, palpitations or increasing shortness of breath. Objective - Vital Signs Vital signs: Vital Signs Temp 99.1 F 08/04/17 15:00 Pulse 86 08/04/17 15:00 Resp 16 08/04/17 15:00 BP 142/75 08/04/17 15:00 Pulse Ox 97 08/04/17 15:00 Intake & Output 08/03/17 08/04/17 08/04/17 18:59 06:59 18:59 Intake Total 2140 1500 Balance 2140 1500 Weight 108.182 kg Intake: Intake, IV Titration 100 Amount methylPREDNISolone SOD 100 SUCC 250 mg In Sodium Chloride 0.9% 100 ml @ 100 mls/hr IVPB Q8H JOSE Rx#:[id number] Oral 2040 1500 Other: Voiding Method Bedside Commode Bedside Commode Bedside Commode # Voids 5 3 2 - Exam PHYSICAL EXAM: VITAL SIGNS: As above GENERAL: Sitting up in chair, no acute distress HEENT: Conjunctivae normal. eyes normal. NECK: No JVD. No thyroid enlargement. No LNs CARDIOVASCULAR: S1, S2 muffled. No murmur RESPIRATION: Breath sounds diminished in the bases. No rhonchi or crackles. No bronchial breathing. ABDOMEN: Soft, nontender . No guarding. no masses palpable. No hepatosplenomegaly.Bowel sounds heard. LEGS: No edema. no swelling PSYCHIATRY: Alert and oriented -3, mood and affect normal. NERVOUS SYSTEM: Cranial N 2-12 grossly normal. Moves all 4 limbs. Diffuse weakness in left upper and lower extremity, power 3 out of 5, left foot drop, decreased sensation of left-sided. Skin: no ulcer no rash Joints: No active swelling. No inflammation. Lymphatic system. No LN neck axilla or groin. - Labs CBC & Chem 7: 08/03/17 07:58 08/05/17 07:55 Labs: Abnormal Lab Results - Last 24 Hours (Table) 08/03/17 08/04/17 08/04/17 Range/Units 21:03 07:20 07:55 Creatinine 0.49 L (0.52-1.04) mg/dL Glucose 136 H (74-99) mg/dL POC Glucose (mg/dL) 198 H 151 H (75-99) mg/dL 08/04/17 08/04/17 Range/Units 11:39 16:50 Creatinine (0.52-1.04) mg/dL Glucose (74-99) mg/dL POC Glucose (mg/dL) 333 H 102 H (75-99) mg/dL Assessment and Plan Plan: -Acute Left sided hemiplegic migrane -hyperglycemia, steroid-induced -Obesity, body mass index 39.2, -Hypothyroidism, -Hyperlipidemia. -Mitochondrial disease. -Bipolar disorder, controlled -Disc autonomic progressive neurologic disorder. -Lymphedema of the left arm from prior deep venous thrombosis -Patent foramen ovale. -Chronic constipation Plan: Continue current medication regime ,monitoring and symptomatic treatment. PT/OT. Discharge planning in progress for tomorrow to subacute rehab. Further recommendations to follow. Patient and mother updated on plan of care, verbalized agreement with. The impression and plan of care has been dictated as directed as a scribe. : I performed a H&P examination of this patient and discussed the same with the dictator. I agree with the dictator's note. Any additional findings/opinions/ etc. will be noted.
[2017-08-05 15:38] VITALS: BP 133/76; PULSE 87; TEMP 98.3
== END 2017-08-05 16:09 | DRG 103 ==
LOC: EC 22:16 → 4MS4W 07-30 00:35 → OBSVTOIN 08-02 07:40
PROVIDERS: ADMIT Hospitalist; ATTEND Hospitalist
DX: G43.409 Hemiplegic migraine, not intractable, without status migrainosus (principal); M32.9 Systemic lupus erythematosus, unspecified; D68.59 Other primary thrombophilia; G81.94 Hemiplegia, unspecified affecting left nondominant side; Q21.1 Atrial septal defect; K31.84 Gastroparesis; E03.9 Hypothyroidism, unspecified; E66.9 Obesity, unspecified; E78.5 Hyperlipidemia, unspecified; F31.9 Bipolar disorder, unspecified; G90.1 Familial dysautonomia [Riley-Day]; I89.0 Lymphedema, not elsewhere classified; E28.2 Polycystic ovarian syndrome; M79.7 Fibromyalgia; T38.0X5A Adverse effect of glucocorticoids and synthetic analogues, initial encounter; R73.9 Hyperglycemia, unspecified; K59.09 Other constipation; M21.372 Foot drop, left foot; E06.3 Autoimmune thyroiditis; Z91.81 History of falling; Z86.14 Personal history of Methicillin resistant Staphylococcus aureus infection; Z82.3 Family history of stroke; Z79.891 Long term (current) use of opiate analgesic; Z88.2 Allergy status to sulfonamides; Z82.49 Family history of ischemic heart disease and other diseases of the circulatory system; Z86.718 Personal history of other venous thrombosis and embolism; Z79.52 Long term (current) use of systemic steroids; Z79.01 Long term (current) use of anticoagulants; Z79.899 Other long term (current) drug therapy; Z83.3 Family history of diabetes mellitus; Z88.7 Allergy status to serum and vaccine; Z68.39 Body mass index [BMI] 39.0-39.9, adult; Z88.8 Allergy status to other drugs, medicaments and biological substances; Z88.1 Allergy status to other antibiotic agents; Z91.041 Radiographic dye allergy status; Z86.73 Personal history of transient ischemic attack (TIA), and cerebral infarction without residual deficits
CPT/HCPCS: 36415; 70450; 80048; 80053; 80306; 81001; 82550; 82553; 83036; 83735; 84484; 85025; 85610; 85730; 95816; 96361; 96365; 96366; 96367; 96374; 96375; 96376; 99285

== ENCOUNTER 2017-09-24 22:28 | Observation (INO) | payer MEDICARE, OTHER ==
[2017-09-24 22:45] LABS: Glucose,Whole Blood 257 mg/dL (75-99)
[2017-09-24 22:53] LABS: Basophils # (A) 0.1 k/uL (0-0.2); Basophils % (A) 0 %; CH 27.7; CHCM 31.8; Eosinophils # (A) 0.3 k/uL (0-0.7); Eosinophils % (A) 3 %; HCT 36.6 % (34.0-46.0); HDW 2.75; HGB 11.5 gm/dL (11.4-16.0); Luc # (Auto) 0.19; Luc % (Auto) 2; Lymphocytes # (A) 2.3 k/uL (1.0-4.8); Lymphocytes % (A) 22 %; MCH 27.4 pg (25.0-35.0); MCHC 31.3 g/dL (31.0-37.0); MCV 87.4 fL (80.0-100.0); Mean Platelet Volume 7.6; Monocytes # (A) 0.6 k/uL (0-1.0); Monocytes % (A) 5 %; Neutrophils # (A) 7.2 k/uL (1.3-7.7); Neutrophils % (A) 68 %; RBC 4.19 m/uL (3.80-5.40); RDW 15.5 % (11.5-15.5); WBC 10.5 k/uL (3.8-10.6); WBC (Perox) 10.89
--- NOTE | 2017-09-24 23:14 | CT ---
EXAMINATION TYPE: CT brain wo con DATE OF EXAM: 09/24/2017 COMPARISON: 07/29/2017 HISTORY: prior on synapse, left sided weakness, hx CVA CT DLP: 996.10 mGycm. Automated Exposure Control for Dose Reduction was Utilized. TECHNIQUE: CT scan of the head is performed without contrast. Findings Ventricles have normal size. There is no mass effect nor midline shift. There is no sign of intracran ial hemorrhage. The calvarium is intact. CONCLUSION: Negative CT scan of the brain. No change..
[2017-09-24 23:17] LABS: Anion Gap 12 mmol/L; Blood Urea Nitrogen 12 mg/dL (7-17); Calcium 9.2 mg/dL (8.4-10.2); Carbon Dioxide 19 mmol/L (22-30); Chloride 107 mmol/L (98-107); Glucose 257 mg/dL (74-99); Magnesium 1.7 mg/dL (1.6-2.3); Non-African American GFR(MDRD) >60 (>60 ml/min/1.73 sqM); Potassium 4.4 mmol/L (3.5-5.1); Sodium 138 mmol/L (137-145)
[2017-09-24] MEDS ORDERED: INSULIN REGULAR 100 UNIT/ML VIAL SQ STA (23:54)
[2017-09-24] MEDS ORDERED: KETOROLAC 30 MG/ML 1 ML VIAL IVP STA (23:55)
[2017-09-24] MEDS ORDERED: METOCLOPRAMIDE 5 MG/ML 2 ML VIAL IVP STA (23:55)
[2017-09-24] MEDS ORDERED: diphenhydrAMINE 50 MG/ML 1 ML VIAL IVP STA (23:55)
--- NOTE | 2017-09-25 00:05 | ED ---
General Adult HPI - General Chief complaint: Headache Stated complaint: Left Sided Weakness Time Seen by Provider: 09/24/17 22:30 Source: patient, EMS Mode of arrival: EMS Limitations: no limitations - History of Present Illness Initial comments: this patient is a 37-year-old woman with history of hemiplegic migraines, who states that 1-2 hours ago she started left-sided weakness associated with some headache. The patient when questions states that this is not entirely typical of her hemiplegic migraine, and is concerned about TIA or stroke. Patient does complain of throbbing headache, which she ranks it severe, she has not noted any modifying factors. She has not had fever or chills, neck stiffness, rash. -: hour(s) Location: head Radiation: non-radiation Quality: aching Consistency: constant Improves with: none Worsens with: none Associated Symptoms: weakness (left-sided) - Related Data Home Medications Medication Instructions Recorded Confirmed Pravastatin Sodium [Pravachol] 40 mg PO HS 01/24/16 09/25/17 Cyanocobalamin [Vitamin B-12] 2,000 mcg PO DAILY 01/25/16 09/25/17 Ferrous Sulfate [Iron (65 MG 325 mg PO BID 07/14/16 09/25/17 Elemental)] Rivaroxaban [Xarelto] 20 mg PO DAILY 03/09/17 09/25/17 tiZANidine [Zanaflex] 8 mg PO HS 03/09/17 09/25/17 Levothyroxine Sodium [Synthroid] 50 mcg PO DAILY 07/29/17 09/25/17 Levothyroxine Sodium [Synthroid] 200 mcg PO DAILY 07/29/17 09/25/17 Metoclopramide [Reglan] 10 mg PO ACHS 07/29/17 09/25/17 Insulin Aspart [NovoLOG Flexpen] See Protocol SQ AC-TID 09/13/17 09/25/17 Polyethylene Glycol 3350 [Miralax] 17 gm PO DAILY PRN 09/13/17 09/25/17 Topiramate [Topamax] 50 mg PO BID 09/13/17 09/25/17 Ondansetron [Zofran] 8 mg PO Q6HR PRN 09/25/17 09/25/17 Trimethobenzamide HCl [Tigan] 300 mg PO TID PRN 09/25/17 09/25/17 Previous Rx's Medication Instructions Recorded Pantoprazole [Protonix] 40 mg PO AC-BID #20 tab 08/04/17 Insulin Glargine [Lantus] 30 unit SQ HS vial 08/05/17 LORazepam [Ativan] 0.5 mg PO HS PRN #20 tab 08/05/17 Metoprolol Succinate (ER) [Toprol 50 mg PO DAILY #30 tab.er.24h 09/27/17 XL] Allergies Allergy/AdvReac Type Severity Reaction Status Date / Time barium sulfate Allergy Anaphylaxis Verified 09/25/17 08:51 doxepin [Doxepin] Allergy Anaphylaxis Verified 09/25/17 08:51 influenza virus vaccine, Allergy Rash/Hives Verified 09/25/17 08:51 specific [Influenza Virus Vacc,Specific] Iodinated Contrast- Oral and Allergy Swelling Verified 09/25/17 08:51 IV Dye [Iodinated Contrast Media - IV Dye] promethazine HCl Allergy Anaphylaxis Verified 09/25/17 08:51 [From Phenergan] sulfamethoxazole Allergy Rash/Hives Verified 09/25/17 08:51 [From Bactrim] trimethoprim [From Bactrim] Allergy Rash/Hives Verified 09/25/17 08:51 doxycycline AdvReac Nausea & Verified 09/25/17 08:51 Vomiting & Diarrhea Pertussis Vaccines AdvReac fever/seizu Verified 09/25/17 08:51 re pseudoephedrine AdvReac Chest Pain Verified 09/25/17 08:51 pseudoephedrine HCl AdvReac Chest Pain Verified 09/25/17 08:51 [From Sudafed] Review of Systems ROS Statement: Those systems with pertinent positive or pertinent negative responses have been documented in the HPI. ROS Other: All systems not noted in ROS Statement are negative. Constitutional: Reports: weakness. Denies: fever, chills Eyes: Denies: eye pain, eye discharge, vision change ENT: Denies: hearing loss Respiratory: Denies: cough, dyspnea, wheezes Cardiovascular: Denies: chest pain, palpitations, syncope Gastrointestinal: Reports: vomiting. Denies: abdominal pain, diarrhea Genitourinary: Denies: dysuria, hematuria Musculoskeletal: Denies: back pain Skin: Denies: rash Neurological: Reports: as per HPI, headache, weakness, numbness. Denies: paresthesias, confusion, vertigo Hematological/Lymphatic: Denies: easy bleeding Past Medical History Past Medical History: Chest Pain / Angina, CVA/TIA, Deep Vein Thrombosis (DVT), Neurologic Disorder, Syncope, Thyroid Disorder Additional Past Medical History / Comment(s): "Dysautonomia-progressive neurological disorder, lupus/LUPUS ANTICOAGULANTS, ana maria's disease, lymphedema Lt arm, v-tach, pituitary microadenoma. "mitochondrial disease". patent foramen ovale. uti's, falls, orthostatic hypotension/syncope,migraine, polycystic ovarian syndrome,neuropathy. Uterine ablation August 2015. Patient no longer has periods. History of Any Multi-Drug Resistant Organisms: ESBL, MRSA Date of last positivie culture/infection: 03/09/17,09/13/17 ESBL MDRO Source:: LEFT ARM, URINE ECOLI Past Surgical History: Uterine Ablation Additional Past Surgical History / Comment(s): colonscopy/egd, angie, stress test. Past Anesthesia/Blood Transfusion Reactions: No Reported Reaction Additional Past Anesthesia/Blood Transfusion Reaction / Comment(s): patient states "It takes a lot of anesthesia for my body to react" Past Psychological History: Bipolar, Depression Smoking Status: Never smoker Past Alcohol Use History: None Reported Past Drug Use History: None Reported - Past Family History Brother(s) Family Medical History: Diabetes Mellitus, Hyperlipidemia, Hypertension Additional Family Medical History / Comment(s): Patient states she has 1 brother with no major medical problems. Father Family Medical History: Hyperlipidemia, Hypertension Additional Family Medical History / Comment(s): DAD IS 70 YEARS OLD. Patient states she does not have any contact with her father and does not know his medical history. Mother Family Medical History: Chest Pain / Angina, CVA/TIA, Hyperlipidemia, Hypertension Additional Family Medical History / Comment(s): AGE 62 HAS LUPUS, blood pressure swings high to low General Exam General appearance: alert, in no apparent distress, obese Head exam: Present: atraumatic, normocephalic, normal inspection Eye exam: Present: normal appearance, PERRL, EOMI. Absent: scleral icterus, conjunctival injection, periorbital swelling, periorbital tenderness ENT exam: Present: normal oropharynx, mucous membranes moist, normal external ear exam Neck exam: Present: normal inspection, full ROM. Absent: tenderness, meningismus Respiratory exam: Present: normal lung sounds bilaterally. Absent: respiratory distress, wheezes, rales, rhonchi, stridor Cardiovascular Exam: Present: regular rate, normal rhythm, normal heart sounds. Absent: systolic murmur, diastolic murmur, rubs, gallop GI/Abdominal exam: Present: soft. Absent: tenderness, guarding, rebound Extremities exam: Present: normal inspection, normal capillary refill. Absent: pedal edema, calf tenderness Back exam: Present: normal inspection Neurological exam: Present: alert, oriented X3, CN II-XII intact, motor sensory deficit (patient's has 4+ out of 5 strength to the left upper and left lower extremity.), reflexes normal Skin exam: Present: warm, dry, intact, normal color. Absent: rash Course Vital Signs 09/24/17 09/25/17 09/25/17 22:31 00:07 01:25 EDT Temperature 98.5 F Pulse Rate 70 72 73 Respiratory 16 16 18 Rate Blood Pressure 86/52 102/72 98/68 O2 Sat by Pulse 97 98 99 Oximetry 09/25/17 09/25/17 09/25/17 02:25 02:59 03:48 Temperature Pulse Rate 62 64 72 Respiratory 18 18 18 Rate Blood Pressure 103/68 109/69 124/86 O2 Sat by Pulse 99 98 98 Oximetry EKG Findings - EKG Results: EKG: interpreted by TOO PAREDES, sinus rhythm (Rate 71 bpm), normal axis, normal QRS, normal ST/T, no acute changes - PR, Pacemaker, Normal: Normal tracing: normal tracing Medical Decision Making - Medical Decision Making this patient is a 37-year-old woman with history of previous hemiplegic migraine. On presentation, patient did express concern that this was not entirely identical to previous episodes, and we discussed computed tomography scan of the brain. I did express my concerns that she has had a number of these , but the patient does not decline the exam. The workup in the emergency department does not reveal other etiology, and her exam is improving, though the patient does continue to complain of intractable headache and continues to not be able to ambulate. - Lab Data Result diagrams: 09/24/17 22:39 09/24/17 22:39 Lab Results 09/24/17 09/24/17 09/24/17 Range/Units 22:39 22:39 22:39 WBC 10.5 (3.8-10.6) k/uL RBC 4.19 (3.80-5.40) m/uL Hgb 11.5 (11.4-16.0) gm/dL Hct 36.6 (34.0-46.0) % MCV 87.4 (80.0-100.0) fL MCH 27.4 (25.0-35.0) pg MCHC 31.3 (31.0-37.0) g/dL RDW 15.5 (11.5-15.5) % Plt Count 314 (150-450) k/uL Neutrophils % 68 % Lymphocytes % 22 % Monocytes % 5 % Eosinophils % 3 % Basophils % 0 % Neutrophils # 7.2 (1.3-7.7) k/uL Lymphocytes # 2.3 (1.0-4.8) k/uL Monocytes # 0.6 (0-1.0) k/uL Eosinophils # 0.3 (0-0.7) k/uL Basophils # 0.1 (0-0.2) k/uL Sodium 138 (137-145) mmol/L Potassium 4.4 (3.5-5.1) mmol/L Chloride 107 (98-107) mmol/L Carbon Dioxide 19 L (22-30) mmol/L Anion Gap 12 mmol/L BUN 12 (7-17) mg/dL Creatinine 0.60 (0.52-1.04) mg/dL Est GFR (MDRD) Af Amer >60 (>60 ml/min/1.73 sqM) Est GFR (MDRD) Non-Af >60 (>60 ml/min/1.73 sqM) Glucose 257 H (74-99) mg/dL POC Glucose (mg/dL) 257 H (75-99) mg/dL POC Glu Invoice Machine Operator ID Jeremy, Marylu [address]imated [address] Glu mg/dL Hemoglobin A1c (4.0-6.0) % Calcium 9.2 (8.4-10.2) mg/dL Magnesium 1.7 (1.6-2.3) mg/dL Troponin I (0.000-0.034) ng/mL 09/24/17 09/24/17 09/25/17 Range/Units 22:39 22:39 00:33 WBC (3.8-10.6) k/uL RBC (3.80-5.40) m/uL Hgb (11.4-16.0) gm/dL Hct (34.0-46.0) % MCV (80.0-100.0) fL MCH (25.0-35.0) pg MCHC (31.0-37.0) g/dL RDW (11.5-15.5) % Plt Count (150-450) k/uL Neutrophils % % Lymphocytes % % Monocytes % % Eosinophils % % Basophils % % Neutrophils # (1.3-7.7) k/uL Lymphocytes # (1.0-4.8) k/uL Monocytes # (0-1.0) k/uL Eosinophils # (0-0.7) k/uL Basophils # (0-0.2) k/uL Sodium (137-145) mmol/L Potassium (3.5-5.1) mmol/L Chloride (98-107) mmol/L Carbon Dioxide (22-30) mmol/L Anion Gap mmol/L BUN (7-17) mg/dL Creatinine (0.52-1.04) mg/dL Est GFR (MDRD) Af Amer (>60 ml/min/1.73 sqM) Est GFR (MDRD) Non-Af (>60 ml/min/1.73 sqM) Glucose (74-99) mg/dL POC Glucose (mg/dL) 165 H (75-99) mg/dL POC Glu Invoice Machine Operator ID Elvia Davis [address]imated [address] Glu mg/dL 154 Hemoglobin A1c 7.0 H (4.0-6.0) % Calcium (8.4-10.2) mg/dL Magnesium (1.6-2.3) mg/dL Troponin I <0.012 (0.000-0.034) ng/mL Disposition Clinical Impression: Migraine, Left-sided weakness Disposition: ADMITTED IP TO THIS HOSP Condition: Stable
[2017-09-25 00:37] LABS: Glucose,Whole Blood 165 mg/dL (75-99)
[2017-09-25] MEDS ORDERED: VERAPAMIL 40 MG TAB PO STA (01:04)
[2017-09-25] MEDS ORDERED: methylPREDNISolone SOD SUCCI 125 MG/2 ML VIAL IV STA (01:58)
[2017-09-25] MEDS ORDERED: ONDANSETRON 4 MG/2 ML VIAL IVP PRN (03:38)
[2017-09-25] MEDS ORDERED: NALOXONE 0.4 MG/ML 1 ML VIAL IV PRN (03:38)
[2017-09-25] MEDS ORDERED: LORazepam 0.5 MG TAB PO PRN (03:41)
[2017-09-25] MEDS: SODIUM CHLORIDE 0.9% 1,000 ML IV SCH ×2 (05:09→14:17)
[2017-09-25] MEDS: KETOROLAC 30 MG/ML 1 ML VIAL IVP PRN ×3 (05:14→20:26)
[2017-09-25] MEDS: LEVOTHYROXINE 50 MCG TAB PO SCH (06:11)
[2017-09-25] MEDS: LEVOTHYROXINE 100 MCG TAB PO SCH (06:11)
[2017-09-25 07:19] LABS: Glucose,Whole Blood 213 mg/dL (75-99)
[2017-09-25] MEDS: TOPIRAMATE 25 MG TAB PO SCH ×2 (08:05→20:24)
[2017-09-25] MEDS: HEPARIN SODIUM,PORCINE 5,000 UNIT/ML 1 ML VIAL SQ SCH ×2 (08:06→16:20)
[2017-09-25] MEDS: METOCLOPRAMIDE 10 MG TAB PO SCH ×4 (08:06→20:24)
[2017-09-25] MEDS: RIVAROXABAN 10 MG TAB PO SCH (08:06)
[2017-09-25] MEDS: FERROUS SULFATE 325 MG TAB PO SCH ×2 (08:06→20:25)
[2017-09-25] MEDS: CYANOCOBALAMIN 500 MCG TAB PO SCH (08:06)
[2017-09-25] MEDS: PANTOPRAZOLE 40 MG TABLET PO SCH ×2 (08:06→17:29)
[2017-09-25] MEDS: METOPROLOL SUCCINATE (ER) 50 MG TAB.ER.24H PO SCH (08:06)
[2017-09-25 12:30] LABS: Glucose,Whole Blood 209 mg/dL (75-99)
[2017-09-25] MEDS ORDERED: MAGNESIUM SULFATE-D5W PMX 1 GM in DEXTROSE/WATER 1 100ML.BAG IVPB ONE (14:00)
--- NOTE | 2017-09-25 14:30 | P.HPIM ---
History of Present Illness H&P Date: 09/25/17 Chief Complaint: Left upper extremity weakness Patient is a 37 old female with a known history of with a known history of morbid obesity, hemiplegic migraine, history of DVT, hypothyroidism, diabetes type 2 and multiple medical problems came to the hospital with complaints of left hand weakness prior to admission. Patient does have multiple admissions with similar complaints. CT head was negative on admission. Patient was recently discharged from the hospital on 09/15/2017 was treated for acute urinary tract infection and gastroenteritis. Currently patient is still having left hand weakness. No fever no chills . patient did complain of headache on admission.. A complaints of chest pain or short of breath. Patient was started on IV steroids and neurology has been consulted. Patient denied any dizziness. No swallowing difficulty. No numbness or tingling. Review of Systems Constitutional: Patient denies any fever or chills . No generalized weakness or weight loss. Abdomen: Patient denied nausea vomiting and diarrhea and abdominal pain. Cardiovascular: Patient denies any chest pain or short of breath no palpitations. Respiratory: patient denied any cough is from production. No shortness of breath Neurologic: Patient denied any numbness or tingling headache. Left hand weakness Musculoskeletal: Patient denies any complaints of joint swelling or deformity. Skin: Negative Psychiatric: Negative Endocrine: No heat or cold intolerance. No recent weight gain. Genitourinary: No dysuria or hematuria. All other 14 point ROS negative except the above Past Medical History Past Medical History: Chest Pain / Angina, CVA/TIA, Deep Vein Thrombosis (DVT), Neurologic Disorder, Syncope, Thyroid Disorder Additional Past Medical History / Comment(s): "Dysautonomia-progressive neurological disorder, lupus/LUPUS ANTICOAGULANTS, ana maria's disease, lymphedema Lt arm, v-tach, pituitary microadenoma. "mitochondrial disease". patent foramen ovale. uti's, falls, orthostatic hypotension/syncope,migraine, polycystic ovarian syndrome,neuropathy. Uterine ablation August 2015. Patient no longer has periods. History of Any Multi-Drug Resistant Organisms: ESBL, MRSA Date of last positivie culture/infection: 03/09/17,09/13/17 ESBL MDRO Source:: LEFT ARM, URINE ECOLI Past Surgical History: Uterine Ablation Additional Past Surgical History / Comment(s): colonscopy/egd, angie, stress test. Past Anesthesia/Blood Transfusion Reactions: No Reported Reaction Additional Past Anesthesia/Blood Transfusion Reaction / Comment(s): patient states "It takes a lot of anesthesia for my body to react" Past Psychological History: Bipolar, Depression Additional Psychological History / Comment(s): attempted suicide 04/05. 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 Has traveled to [place]. No animal exposures. No tobacco or alcohol use. Single without children. Does not relate to other family members with her genetic disorder Smoking Status: Never smoker Past Alcohol Use History: None Reported Additional Past Alcohol Use History / Comment(s): Patient is a lifelong nonsmoker. She denies any medical marijuana, marijuana, street drug or alcohol use. She is single and does not have any children. Past Drug Use History: None Reported - Past Family History Brother(s) Family Medical History: Diabetes Mellitus, Hyperlipidemia, Hypertension Additional Family Medical History / Comment(s): Patient states she has 1 brother with no major medical problems. Father Family Medical History: Hyperlipidemia, Hypertension Additional Family Medical History / Comment(s): DAD IS 70 YEARS OLD. Patient states she does not have any contact with her father and does not know his medical history. Mother Family Medical History: Chest Pain / Angina, CVA/TIA, Hyperlipidemia, Hypertension Additional Family Medical History / Comment(s): AGE 62 HAS LUPUS, blood pressure swings high to low Medications and Allergies Home Medications Medication Instructions Recorded Confirmed Type Pravastatin Sodium [Pravachol] 40 mg PO HS 01/24/16 09/25/17 History Cyanocobalamin [Vitamin B-12] 2,000 mcg PO DAILY 01/25/16 09/25/17 History Ferrous Sulfate [Iron (65 MG 325 mg PO BID 07/14/16 09/25/17 History Elemental)] Rivaroxaban [Xarelto] 20 mg PO DAILY 03/09/17 09/25/17 History tiZANidine [Zanaflex] 8 mg PO HS 03/09/17 09/25/17 History Levothyroxine Sodium [Synthroid] 50 mcg PO DAILY 07/29/17 09/25/17 History Levothyroxine Sodium [Synthroid] 200 mcg PO DAILY 07/29/17 09/25/17 History Metoclopramide [Reglan] 10 mg PO ACHS 07/29/17 09/25/17 History Pantoprazole [Protonix] 40 mg PO AC-BID #20 tab 08/04/17 09/25/17 Rx Insulin Glargine [Lantus] 30 unit SQ HS vial 08/05/17 09/25/17 Rx LORazepam [Ativan] 0.5 mg PO HS PRN #20 tab 08/05/17 09/25/17 Rx Insulin Aspart [NovoLOG Flexpen] See Protocol SQ AC-TID 09/13/17 09/25/17 History Polyethylene Glycol 3350 [Miralax] 17 gm PO DAILY PRN 09/13/17 09/25/17 History Topiramate [Topamax] 50 mg PO BID 09/13/17 09/25/17 History Metoprolol Succinate [Toprol XL] 100 mg PO DAILY 09/25/17 09/25/17 History Ondansetron [Zofran] 8 mg PO Q6HR PRN 09/25/17 09/25/17 History Trimethobenzamide HCl [Tigan] 300 mg PO TID PRN 09/25/17 09/25/17 History hydrOXYzine HCL [Atarax] 25 mg PO BID PRN 09/25/17 09/25/17 History Allergies Allergy/AdvReac Type Severity Reaction Status Date / Time barium sulfate Allergy Anaphylaxis Verified 09/25/17 08:51 doxepin [Doxepin] Allergy Anaphylaxis Verified 09/25/17 08:51 influenza virus vaccine, Allergy Rash/Hives Verified 09/25/17 08:51 specific [Influenza Virus Vacc,Specific] Iodinated Contrast- Oral and Allergy Swelling Verified 09/25/17 08:51 IV Dye [Iodinated Contrast Media - IV Dye] promethazine HCl Allergy Anaphylaxis Verified 09/25/17 08:51 [From Phenergan] sulfamethoxazole Allergy Rash/Hives Verified 09/25/17 08:51 [From Bactrim] trimethoprim [From Bactrim] Allergy Rash/Hives Verified 09/25/17 08:51 doxycycline AdvReac Nausea & Verified 09/25/17 08:51 Vomiting & Diarrhea Pertussis Vaccines AdvReac fever/seizu Verified 09/25/17 08:51 re pseudoephedrine AdvReac Chest Pain Verified 09/25/17 08:51 pseudoephedrine HCl AdvReac Chest Pain Verified 09/25/17 08:51 [From Sudafed] Physical Exam Vitals: Vital Signs Temp Pulse Pulse Resp BP BP Pulse Ox 09/25/17 07:00 98.0 F 80 16 97/61 96 09/25/17 04:53 98 F 75 20 112/72 97 09/25/17 03:48 72 18 124/86 98 09/25/17 02:59 64 18 109/69 98 09/25/17 02:25 62 18 103/68 99 09/25/17 01:25 EDT 73 18 98/68 99 09/25/17 00:07 72 16 102/72 98 09/24/17 22:31 98.5 F 70 16 86/52 97 Intake and Output 09/24/17 09/25/17 09/25/17 23:59 06:59 14:59 Intake Total Balance Intake: Oral Other: Voiding Method # Voids Weight PHYSICAL EXAMINATION: Patient is lying in the bed comfortably, no acute distress, awake alert and oriented.. HEENT: Normocephalic. Neck is supple. Pupils reactive. Nostrils clear. Oral cavity is moist. Ears reveal no drainage. Neck reveals no JVD, carotid bruits, or thyromegaly. CHEST EXAMINATION: Trachea is central. Symmetrical expansion. Lung kebede clear to auscultation and percussion. CARDIAC: Normal S1, S2 with no gallops. No murmurs ABDOMEN: Soft. Bowel sounds normal. No organomegaly. No abdominal bruits. Extremities: reveal no edema. No clubbing or cyanosis Neurologically awake, alert, oriented x3, left upper activity motor 2/5. Sensory intact Skin: No rash or skin lesions. Psychiatric: Operative. Nonsuicidal Musculoskeletal: No joint swelling or deformity. Normal range of motion. Results CBC & Chem 7: 09/24/17 22:39 09/24/17 22:39 Labs: Abnormal Lab Results - Last 24 Hours (Table) 09/24/17 09/24/17 09/25/17 Range/Units 22:39 22:39 00:33 Carbon Dioxide 19 L (22-30) mmol/L Glucose 257 H (74-99) mg/dL POC Glucose (mg/dL) 257 H 165 H (75-99) mg/dL 09/25/17 Range/Units 07:16 Carbon Dioxide (22-30) mmol/L Glucose (74-99) mg/dL POC Glucose (mg/dL) 213 H (75-99) mg/dL Thrombosis Risk Factor Assmnt - Choose All That Apply Each Factor Represents 1 point: Obesity (BMI >25) Each Risk Factor Represents 3 Points: History of DVT/PE Thrombosis Risk Factor Assessment Total Risk Factor Score: 4 Thrombosis Risk Factor Assessment Level: Moderate Risk Assessment and Plan Assessment: #1 left upper extremity weakness. Likely due to recurrent Hemiplegic migraine #2 mild obesity with BMI 40.6 #3 hypothyroidism #4 hyperlipidemia #5 chronic mitochondrial disease #6 bipolar disorder #7 dysautonomic disorder #8 chronic lymphedema of the left upper extremity from DVT #9 patent foramen ovale #10 polycystic ovarian syndrome #11 recent urinary tract infection sepsis. #12 diabetes type 2 insulin-dependent. Plan: Patient be continued on methylprednisolone to 250 mg every 8 hourly IV. Neurology has been consulted. We'll continue the home medications including anti-regulates the form of xarelto. Continue with IV hydration. Patient is tolerating clear liquids and advance as tolerated. Continue the home medications and insulin dosing. Further admissions based on the clinical course. Prognosis is guarded.
--- NOTE | 2017-09-25 15:01 | P.CNNES ---
History of Present Illness Consult date: 09/25/17 Requesting physician: Fredi Cheek Reason for Consult: Headache History of Present Illness: Patient is a pleasant 37-year-old female who is being evaluated by the neurology service today on 09/25/2017 per the request of Dr. Cheek for headache. Patient does have a long history of the same complaint. Patient states she has had history of migraines for many years. Patient states she typically loses control of left side. Patient states she is on Topamax 50 mg twice a day at home. CT of the brain was done which was negative for any acute process. 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 Patient is on Xarelto for prior DVT. Vital signs were stable on admission with temperature 98.5, pulse rate 70, respiratory rate 16, and blood pressure was low at 86/52. Lab work was essentially unremarkable except for glucose of 257. At the time of my exam , patient's resting comfortably in bed and appears to be in no acute distress. Review of Systems REVIEW OF SYSTEMS: Otherwise unremarkable and noncontributory. Past Medical History Past Medical History: Chest Pain / Angina, CVA/TIA, Deep Vein Thrombosis (DVT), Neurologic Disorder, Syncope, Thyroid Disorder Additional Past Medical History / Comment(s): "Dysautonomia-progressive neurological disorder, lupus/LUPUS ANTICOAGULANTS, ana maria's disease, lymphedema Lt arm, v-tach, pituitary microadenoma. "mitochondrial disease". patent foramen ovale. uti's, falls, orthostatic hypotension/syncope,migraine, polycystic ovarian syndrome,neuropathy. Uterine ablation August 2015. Patient no longer has periods. History of Any Multi-Drug Resistant Organisms: ESBL, MRSA Date of last positivie culture/infection: 03/09/17,09/13/17 ESBL MDRO Source:: LEFT ARM, URINE ECOLI Past Surgical History: Uterine Ablation Additional Past Surgical History / Comment(s): colonscopy/egd, angie, stress test. Past Anesthesia/Blood Transfusion Reactions: No Reported Reaction Additional Past Anesthesia/Blood Transfusion Reaction / Comment(s): patient states "It takes a lot of anesthesia for my body to react" Past Psychological History: Bipolar, Depression Additional Psychological History / Comment(s): attempted suicide 04/05. 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 Has traveled to [place]. No animal exposures. No tobacco or alcohol use. Single without children. Does not relate to other family members with her genetic disorder Smoking Status: Never smoker Past Alcohol Use History: None Reported Additional Past Alcohol Use History / Comment(s): Patient is a lifelong nonsmoker. She denies any medical marijuana, marijuana, street drug or alcohol use. She is single and does not have any children. Past Drug Use History: None Reported - Past Family History Brother(s) Family Medical History: Diabetes Mellitus, Hyperlipidemia, Hypertension Additional Family Medical History / Comment(s): Patient states she has 1 brother with no major medical problems. Father Family Medical History: Hyperlipidemia, Hypertension Additional Family Medical History / Comment(s): DAD IS 70 YEARS OLD. Patient states she does not have any contact with her father and does not know his medical history. Mother Family Medical History: Chest Pain / Angina, CVA/TIA, Hyperlipidemia, Hypertension Additional Family Medical History / Comment(s): AGE 62 HAS LUPUS, blood pressure swings high to low Medications and Allergies Home Medications Medication Instructions Recorded Confirmed Type Pravastatin Sodium [Pravachol] 40 mg PO HS 01/24/16 09/25/17 History Cyanocobalamin [Vitamin B-12] 2,000 mcg PO DAILY 01/25/16 09/25/17 History Ferrous Sulfate [Iron (65 MG 325 mg PO BID 07/14/16 09/25/17 History Elemental)] Rivaroxaban [Xarelto] 20 mg PO DAILY 03/09/17 09/25/17 History tiZANidine [Zanaflex] 8 mg PO HS 03/09/17 09/25/17 History Levothyroxine Sodium [Synthroid] 50 mcg PO DAILY 07/29/17 09/25/17 History Levothyroxine Sodium [Synthroid] 200 mcg PO DAILY 07/29/17 09/25/17 History Metoclopramide [Reglan] 10 mg PO ACHS 07/29/17 09/25/17 History Pantoprazole [Protonix] 40 mg PO AC-BID #20 tab 08/04/17 09/25/17 Rx Insulin Glargine [Lantus] 30 unit SQ HS vial 08/05/17 09/25/17 Rx LORazepam [Ativan] 0.5 mg PO HS PRN #20 tab 08/05/17 09/25/17 Rx Insulin Aspart [NovoLOG Flexpen] See Protocol SQ AC-TID 09/13/17 09/25/17 History Polyethylene Glycol 3350 [Miralax] 17 gm PO DAILY PRN 09/13/17 09/25/17 History Topiramate [Topamax] 50 mg PO BID 09/13/17 09/25/17 History Metoprolol Succinate [Toprol XL] 100 mg PO DAILY 09/25/17 09/25/17 History Ondansetron [Zofran] 8 mg PO Q6HR PRN 09/25/17 09/25/17 History Trimethobenzamide HCl [Tigan] 300 mg PO TID PRN 09/25/17 09/25/17 History hydrOXYzine HCL [Atarax] 25 mg PO BID PRN 09/25/17 09/25/17 History Allergies Allergy/AdvReac Type Severity Reaction Status Date / Time barium sulfate Allergy Anaphylaxis Verified 09/25/17 08:51 doxepin [Doxepin] Allergy Anaphylaxis Verified 09/25/17 08:51 influenza virus vaccine, Allergy Rash/Hives Verified 09/25/17 08:51 specific [Influenza Virus Vacc,Specific] Iodinated Contrast- Oral and Allergy Swelling Verified 09/25/17 08:51 IV Dye [Iodinated Contrast Media - IV Dye] promethazine HCl Allergy Anaphylaxis Verified 09/25/17 08:51 [From Phenergan] sulfamethoxazole Allergy Rash/Hives Verified 09/25/17 08:51 [From Bactrim] trimethoprim [From Bactrim] Allergy Rash/Hives Verified 09/25/17 08:51 doxycycline AdvReac Nausea & Verified 09/25/17 08:51 Vomiting & Diarrhea Pertussis Vaccines AdvReac fever/seizu Verified 09/25/17 08:51 re pseudoephedrine AdvReac Chest Pain Verified 09/25/17 08:51 pseudoephedrine HCl AdvReac Chest Pain Verified 09/25/17 08:51 [From Sudafed] Physical Examination - Vital Signs Vital Signs: Vital Signs Temp Pulse Pulse Resp BP BP Pulse Ox 09/25/17 14:17 98.2 F 98 18 102/65 96 09/25/17 07:00 98.0 F 80 16 97/61 96 09/25/17 04:53 98 F 75 20 112/72 97 09/25/17 03:48 72 18 124/86 98 09/25/17 02:59 64 18 109/69 98 09/25/17 02:25 62 18 103/68 99 09/25/17 01:25 EDT 73 18 98/68 99 09/25/17 00:07 72 16 102/72 98 09/24/17 22:31 98.5 F 70 16 86/52 97 Intake and Output 09/24/17 09/25/17 09/25/17 23:59 06:59 14:59 Intake Total 300 Balance 300 Intake: Oral 300 Other: Voiding Method # Voids 1 Weight PHYSICAL EXAM: GENERAL APPEARANCE: Patient is a well-developed, female who appears to be in no acute distress. HEENT: Normocephalic, atraumatic, no facial asymmetry is seen. Neck is supple with no masses felt. CARDIOVASCULAR: Regular rate and rhythm. ABDOMEN: Nontender, nondistended. EXTREMITIES: Show no edema or clubbing. NEUROLOGICAL EXAM: Patient is awake, alert, and oriented 3. Speech and language are normal. No facial asymmetry is seen on cranial nerve testing. Strength is full in right upper and lower extremity. Strength is 4-/5 in left upper and lower extremity. Sensory exam shows deficit to light touch in sporadic areas of extremities. No tremors or seizure-like activity is noted. Results - Laboratory Findings CBC and BMP: 09/24/17 22:39 09/24/17 22:39 Abnormal Lab Findings: Abnormal Labs 09/24/17 09/24/17 09/25/17 22:39 22:39 00:33 Carbon Dioxide 19 L Glucose 257 H POC Glucose (mg/dL) 257 H 165 H 09/25/17 09/25/17 07:16 12:24 Carbon Dioxide Glucose POC Glucose (mg/dL) 213 H 209 H Assessment and Plan Plan: Impression: 1. Hemiplegic migraine 2. History of DVT 3. Mitochondrial DNA depletion syndrome Recommendation: It does appear patient has recurrence of hemiplegic migraine. Her symptoms are consistent with her past hemiplegic migraines. She does report headaches have somewhat improved already. I will start her on IV Solu- Medrol 250 mg every 8 hours along with magnesium 1 g every 8 hours. She is already on Reglan for history of gastroparesis. She is also receiving Toradol. I did have a lengthy discussion with her regarding migraine treatments that can be done as an outpatient through our office. As you recall, computed tomography scan of the brain was unremarkable. Patient did have EEG done at previous admission which was within normal limits. I recommend physical therapy to evaluate and treat. Patient is stable for discharge from a neurological standpoint. She can follow up in our office for continuation of IV steroids, Reglan, and magnesium. We did discuss a sphenopalatine block which can be done in the office. I will continue to follow with you. Further recommendations to follow. Thank you for allowing me to participate in the care of your patient. Feel free to call with any questions or concerns. I performed an examination of the patient and discussed the management with the CLINICAL SCIENCES PROFESSOR. I have reviewed the CLINICAL SCIENCES PROFESSOR notes and agree with the findings and plan of care.
[2017-09-25 16:59] LABS: Glucose,Whole Blood 178 mg/dL (75-99)
[2017-09-25] MEDS: INSULIN LISPRO (humaLOG) 300 UNIT/3 ML VIAL SQ SCH ×2 (17:28→22:20)
[2017-09-25] MEDS: tiZANidine 4 MG TAB PO SCH (20:25)
[2017-09-25] MEDS: PRAVASTATIN SODIUM 40 MG TAB PO SCH (20:26)
[2017-09-25 20:40] LABS: Glucose,Whole Blood 284 mg/dL (75-99)
[2017-09-25] MEDS: INSULIN GLARGINE 100 UNIT/ML 10 ML VIAL SQ SCH (22:19)
[2017-09-26] MEDS: SODIUM CHLORIDE 0.9% 1,000 ML IV SCH ×2 (05:11→10:45)
[2017-09-26] MEDS: HEPARIN SODIUM,PORCINE 5,000 UNIT/ML 1 ML VIAL SQ SCH ×3 (05:11→17:34)
[2017-09-26] MEDS: LEVOTHYROXINE 100 MCG TAB PO SCH (06:28)
[2017-09-26] MEDS: LEVOTHYROXINE 50 MCG TAB PO SCH (06:28)
[2017-09-26 07:21] LABS: Glucose,Whole Blood 236 mg/dL (75-99)
[2017-09-26] MEDS: RIVAROXABAN 10 MG TAB PO SCH (08:21)
[2017-09-26] MEDS: FERROUS SULFATE 325 MG TAB PO SCH ×2 (08:21→21:00)
[2017-09-26] MEDS: TOPIRAMATE 25 MG TAB PO SCH ×2 (08:21→20:59)
[2017-09-26] MEDS: METOCLOPRAMIDE 10 MG TAB PO SCH ×4 (08:21→21:00)
[2017-09-26] MEDS: METOPROLOL SUCCINATE (ER) 50 MG TAB.ER.24H PO SCH (08:22)
[2017-09-26] MEDS: PANTOPRAZOLE 40 MG TABLET PO SCH ×2 (08:22→17:33)
[2017-09-26] MEDS: CYANOCOBALAMIN 500 MCG TAB PO SCH (08:22)
[2017-09-26] MEDS: INSULIN LISPRO (humaLOG) 300 UNIT/3 ML VIAL SQ SCH ×4 (08:27→21:05)
[2017-09-26] MEDS: KETOROLAC 30 MG/ML 1 ML VIAL IVP PRN ×2 (08:27→14:21)
[2017-09-26 12:04] LABS: Glucose,Whole Blood 282 mg/dL (75-99)
[2017-09-26] MEDS ORDERED: methylPREDNISolone SOD SUCCI 125 MG/2 ML VIAL IV SCH (16:00)
--- NOTE | 2017-09-26 16:08 | P.PN ---
Subjective Progress Note Date: 09/26/17 Patient is a pleasant 37-year-old female who is being followed by the neurology service for headache. Patient has a long history of solo-plegic migraine. Patient is on Topamax 50 mg twice a day in the home setting. On arrival, patient did have computed tomography scan of the brain done which was negative for any acute process. Patient is on Xarelto for prior DVT. Patient continues to report left-sided weakness. Staff informs the patient did get up and shower herself today. Patient denies any difficulty swallowing. At the time of my examination, patient's resting comfortably in bed and listening to her music on her iPad. Objective - Vital Signs Vital signs: Vital Signs Temp 99.9 F H 09/26/17 15:00 Pulse 106 H 09/26/17 15:00 Resp 16 09/26/17 15:00 BP 147/84 09/26/17 15:00 Pulse Ox 96 09/26/17 15:00 Intake & Output 09/25/17 09/26/17 09/26/17 18:59 06:59 18:59 Intake Total 300 900 Balance 300 900 Intake: Intake, IV Titration 900 Amount Sodium Chloride 0.9% 1, 800 000 ml @ 100 mls/hr IV . Q10H JOSE Rx#:[id number] methylPREDNISolone SOD 100 SUCC 250 mg In Sodium Chloride 0.9% 100 ml @ 100 mls/hr IVPB Q8H JOSE Rx#:[id number] Oral 300 Other: Voiding Method Bedside Commode # Voids 1 3 - Exam PHYSICAL EXAM: GENERAL APPEARANCE: Patient is a well-developed, female who appears to be in no acute distress. HEENT: Normocephalic, atraumatic, no facial asymmetry is seen. Neck is supple with no masses felt. CARDIOVASCULAR: Regular rate and rhythm. ABDOMEN: Nontender, nondistended. EXTREMITIES: Show no edema or clubbing. NEUROLOGICAL EXAM: Patient is awake, alert, and oriented 3. Speech and language are normal. No facial asymmetry is seen on cranial nerve testing. Strength is full in right upper and lower extremities. Strength is 3/5 in left upper and lower extremity. Upon my arrival into the room, I did witness patient pulling earphones out of her ear simultaneously with both hands. But when asked to lift her left arm she was unable to do so. It is my opinion patient has more movement of left upper and lower extremity then she will reveal. Patient reports decreased sensation to light touch on the left side. No tremors or seizure-like activity is noted. - Labs CBC & Chem 7: 09/24/17 22:39 09/24/17 22:39 Labs: Abnormal Lab Results - Last 24 Hours (Table) 09/25/17 09/25/17 09/26/17 Range/Units 16:56 20:37 07:18 POC Glucose (mg/dL) 178 H 284 H 236 H (75-99) mg/dL 09/26/17 Range/Units 11:59 POC Glucose (mg/dL) 282 H (75-99) mg/dL Assessment and Plan Plan: Impression: 1. Hemiplegic migraine 2. History of DVT 3. Mitochondrial DNA depletion syndrome Recommendation: It does appear patient has recurrence of hemiplegic migraine. Her symptoms are consistent with her past hemiplegic migraines. Yesterday, she reported headaches were improving. Today she states headaches are worse. Patient is able to use her eye. Without difficulty or visual complaints. Patient is not sensitive to light or sound. This is not consistent with true migraine symptoms. Patient was receiving IV Solu-Medrol 250 mg every 8 hours along with magnesium 1 g every 8 hours but states no improvement in symptoms. Steroid therapy has been discontinued. She is also receiving Toradol. I will prescribe Fioricet every 8 hours when necessary. I did have a lengthy discussion with her regarding migraine treatments that can be done as an outpatient through our office. As you recall, computed tomography scan of the brain was unremarkable. Patient did have EEG done at previous admission which was within normal limits. I recommend physical therapy to evaluate and treat. Patient is stable for discharge from a neurological standpoint. Patient can return to the home setting if physical therapy recommends such. She may need inpatient rehab for a short stay if physical therapy deems necessary. If patient returned to the home setting, she can follow up in our office for IV steroids, Reglan, and magnesium therapy. We did discuss a sphenopalatine block which can be done in the office. Patient is stable from a neurological standpoint for discharge. I will continue to follow with you on an as-needed basis. Feel free to call with any questions or concerns. Thank you for allowing me to participate in the care of your patient. Feel free to call with any questions or concerns. I performed an examination of the patient and discussed the management with the QUARANTINE INSPECTOR. I have reviewed the QUARANTINE INSPECTOR notes and agree with the findings and plan of care.
[2017-09-26 17:03] LABS: Glucose,Whole Blood 322 mg/dL (75-99)
--- NOTE | 2017-09-26 18:13 | P.PN ---
Progress Note - Text Progress Note Date: 09/26/17 DATE OF SERVICE: 09/26/2017 PRESENTING COMPLAINT: Headache, left upper extremity weakness HISTORY OF PRESENT ILLNESS: 37-year-old female presented to the emergency department with complaints of left hand weakness prior to admission as well as a migraine headache. Patient has had multiple admissions for the same. Patient admitted neurology consulted. INTERVAL HISTORY: 09/26/2017: Patient seen in follow-up, states her headaches improved however still present. Continues to have difficulty moving left upper and lower extremity. Difficulty discerning touch, complains of itching from an episode of scabies received at a local senior care where she received physical rehab. Tolerating her diet, requires assistance with transferring and ambulation, last BM 2 days ago. REVIEW OF SYSTEMS: Done for constitutional ,cardiovascular, GI, pulmonary with relevant findings as above. CURRENT MEDICATIONS Fioricet, Feosol, heparin 5000 units subcu every 8 hours, Lantus 30 units subcu at bedtime, Toradol 30 mg IV push every 6 hours when necessary, Synthroid 200 g by mouth daily Synthroid 50 g by mouth daily, Ativan 0.5 mg by mouth at bedtime, Reglan 10 mg by mouth before meals at bedtime, Toprol-XL 50 mg by mouth daily, Zofran 4 mg IV push every 8 hours when necessary, Protonix 40 mg by mouth before meals twice a day, Pravachol 40 mg by mouth at bedtime, Xarelto 20 mg by mouth daily, Zanaflex 8 mg by mouth at bedtime, Topamax 50 mg by mouth twice a day. PHYSICAL EXAM VITAL SIGNS: Temperature 98.0, pulse 80, respiratory rate 16, blood pressure 97/61, oxygen saturation 96% on room air. GENERAL APPEARANCE: Lying in bed, appears comfortable using her iPad. EYES: Pupils equal. Conjunctiva normal. NECK: JVD not raised. Mass not palpable. RESPIRATORY: Respiratory effort normal. Lungs clear to auscultation. CARDIOVASCULAR: First and second sounds normal. No edema. ABDOMEN: Soft. Liver and spleen not palpable. No tenderness. No mass palpable. PSYCHIATRY: Alert and oriented x3. Mood and affect normal. NEUROLOGICAL: Cranial nerves grossly intact. No facial asymmetry. Power in the left arm is 2-3/5, left leg is to to 3/5. INVESTIGATIONS: Accu-Cheks noted ASSESSMENT: -Acute hemiplegic migraine with left sided weakness imrpoved with steroids -Obesity body mass index greater than 35 -Hypothyroidism. -Hyperlipidemia. -Chronic mitochondrial disease. -Bipolar disorder controlled. -Dysautonomic disorder progressive. -Neurologic disorder. -Chronic lymphedema of the left upper arm from deep vein thrombosis, chronically on Xarelto -Patent foramen ovale. -Polycystic ovarian syndrome. PLAN: Methylprednisolone course completed per neurology, patient should follow-up outpatient for migraine treatment, neurology will follow on an as-needed basis. Physical therapy to evaluate the patient the possibility of placement for physical rehabilitation. Topical preparation provided to the patient for the areas of itching on her skin. Plan of care discussed at the bedside with the patient she is in agreement. MICROSOFT CRM DEVELOPER statement: Patient was seen and examined by nurse practitioner Amena Nice and all elements of the case discussed with attending Dr. Cheek
[2017-09-26 20:51] LABS: Glucose,Whole Blood 273 mg/dL (75-99)
[2017-09-26] MEDS: BUTALB/APAP/CAFF 50-325-40MG TAB PO PRN (20:58)
[2017-09-26] MEDS: tiZANidine 4 MG TAB PO SCH (21:00)
[2017-09-26] MEDS: PRAVASTATIN SODIUM 40 MG TAB PO SCH (21:00)
[2017-09-26] MEDS: INSULIN GLARGINE 100 UNIT/ML 10 ML VIAL SQ SCH (21:05)
--- NOTE | 2017-09-26 22:15 | PN ---
PROGRESS NOTE DATE OF SERVICE: 09/26/17/ ATTENDING NOTE: Patient seen and examined by me. I discussed with nurse practitioner, Arlet. Patient admitted with headaches most on the right side and left-sided weakness. The patient states that left-sided weakness that was present before greatly improved. The patient was able to actually use the left leg better. Left arm was better. Now presents again with a headache and significant weakness of the left side. The patient is given high-dose 3 doses Solu-Medrol by neurology. Weakness in the left weakness in the left upper extremity is getting better. She states headache is better. EXAMINATION: Power on the left arm is 2 to 3/5, left leg is 2 to 3/5. Lungs are clear. Cardiovascular first and second sounds normal. The patient is able to tolerate all her meals. Slight nausea present, no fever. ASSESSMENT: 1. Acute hemiplegic migraine with left-sided weakness, improved with steroids. 2. Chronic mitochondrial disease. 3. Dysautonomic disorder, progressive. 4. Chronic lymphedema of the left upper extremity from deep vein thrombosis. PLAN: Physical therapy is consulted. Per neurology, no further intervention at the present time. Care was discussed with the patient. Follow. MMODL / IJN: [id number] /
[2017-09-27] MEDS: HEPARIN SODIUM,PORCINE 5,000 UNIT/ML 1 ML VIAL SQ SCH ×2 (02:52→07:54)
[2017-09-27] MEDS: LEVOTHYROXINE 100 MCG TAB PO SCH (06:25)
[2017-09-27] MEDS: BUTALB/APAP/CAFF 50-325-40MG TAB PO PRN (06:25)
[2017-09-27] MEDS: LEVOTHYROXINE 50 MCG TAB PO SCH (06:25)
[2017-09-27 07:45] LABS: Glucose,Whole Blood 131 mg/dL (75-99)
[2017-09-27 07:52] VITALS: BP 124/82; PULSE 77; RESP 22; TEMP 97.5
[2017-09-27] MEDS: METOPROLOL SUCCINATE (ER) 50 MG TAB.ER.24H PO SCH (07:53)
[2017-09-27] MEDS: INSULIN LISPRO (humaLOG) 300 UNIT/3 ML VIAL SQ SCH ×2 (07:53→12:17)
[2017-09-27] MEDS: METOCLOPRAMIDE 10 MG TAB PO SCH ×2 (07:53→12:18)
[2017-09-27] MEDS: CYANOCOBALAMIN 500 MCG TAB PO SCH (07:53)
[2017-09-27] MEDS: FERROUS SULFATE 325 MG TAB PO SCH (07:54)
[2017-09-27] MEDS: TOPIRAMATE 25 MG TAB PO SCH (07:54)
[2017-09-27] MEDS: RIVAROXABAN 10 MG TAB PO SCH (07:54)
[2017-09-27] MEDS: PANTOPRAZOLE 40 MG TABLET PO SCH (07:54)
[2017-09-27] MEDS: KETOROLAC 30 MG/ML 1 ML VIAL IVP PRN ×2 (07:57→14:21)
[2017-09-27 12:16] LABS: Glucose,Whole Blood 107 mg/dL (75-99)
--- NOTE | 2017-09-27 14:34 | P.DS ---
Providers Date of admission: 09/25/17 03:38 Expected date of discharge: 09/27/17 Attending physician: Fredi Cheek Consults: 09/25/17 03:39 Consult Physician Routine Consulting Provider: Leah Vickers Consult Reason/Comments: possible hemiplegic migraine Do you want consulting provider notified?: Yes Primary care physician: [facility] [place][Note 2] Course: FINAL DIAGNOSES: -Acute hemiplegic migraine with left sided weakness imrpoved with steroids -Obesity body mass index greater than 35 -Hypothyroidism. -Hyperlipidemia. -Chronic mitochondrial disease. -Bipolar disorder controlled. -Dysautonomic disorder progressive. -Neurologic disorder. -Chronic lymphedema of the left upper arm from deep vein thrombosis, chronically on Xarelto -Patent foramen ovale. -Polycystic ovarian syndrome. HOSPTIAL COURSE: 37-year-old female admitted with acute hemiplegic migraine most on the right side with left side weakness. All home medications reordered neurology consulted. Computed tomography scan of the brain was negative for any acute process, EEG was performed on a previous admission and was within normal limits. IV Solu-Medrol 250 mg every 8 hours for 3 doses along with magnesium 1 g every 8 hours initiated. Patient states left-sided weakness was present before has greatly improved with steroid administration. Patient had concerns regarding left-sided weakness and going home. Was evaluated by physical therapy , deemed appropriate to discharge to inpatient rehab facility, patient has been accepted by [facility]. Patient's tolerating her diet, up into the chair with assistance, moved her bowels 2 days ago, which is not uncommon for her with her gastroparesis. Condition is stable, neurology is cleared the patient appropriate for discharge. PHYSICAL EXAM: CARDIOVASCULAR: First and second sounds noted no edema RESPIRATORY: Respiratory effort normal lung sounds clear to auscultation bilaterally GI: Abdomen soft nontender liver and spleen not palpable no guarding or rigidity noted NEUROLOGIC:: Power in the left arm is 2-3/5, left leg is to to 3/5. PSYCHIATRY: Alert and oriented 3, mood and affect normal. Patient was seen and examined by nurse practitioner Amena Nice in all elements of the case discussed with attending Dr. Cheek DISPOSITION: Transfer care to [facility]. Patient Condition at Discharge: Stable Plan - Discharge Summary Discharge Rx Participant: Yes New Discharge Prescriptions: New Metoprolol Succinate (ER) [Toprol XL] 50 mg PO DAILY #30 tab.er.24h Continue Pravastatin Sodium [Pravachol] 40 mg PO HS Cyanocobalamin [Vitamin B-12] 2,000 mcg PO DAILY Ferrous Sulfate [Iron (65 MG Elemental)] 325 mg PO BID tiZANidine [Zanaflex] 8 mg PO HS Rivaroxaban [Xarelto] 20 mg PO DAILY Metoclopramide [Reglan] 10 mg PO ACHS Levothyroxine Sodium [Synthroid] 200 mcg PO DAILY Levothyroxine Sodium [Synthroid] 50 mcg PO DAILY Pantoprazole [Protonix] 40 mg PO AC-BID #20 tab LORazepam [Ativan] 0.5 mg PO HS PRN #20 tab PRN Reason: Anxiety Insulin Glargine [Lantus] 30 unit SQ HS vial Topiramate [Topamax] 50 mg PO BID Polyethylene Glycol 3350 [Miralax] 17 gm PO DAILY PRN PRN Reason: Constipation Insulin Aspart [NovoLOG Flexpen] See Protocol SQ AC-TID Trimethobenzamide HCl [Tigan] 300 mg PO TID PRN PRN Reason: Nausea Ondansetron [Zofran] 8 mg PO Q6HR PRN PRN Reason: Nausea And Vomiting Discontinued hydrOXYzine HCL [Atarax] 25 mg PO BID PRN PRN Reason: Anxiety Metoprolol Succinate [Toprol XL] 100 mg PO DAILY Discharge Medication List Pravastatin Sodium [Pravachol] 40 mg PO HS 01/24/16 [History] Cyanocobalamin [Vitamin B-12] 2,000 mcg PO DAILY 01/25/16 [History] Ferrous Sulfate [Iron (65 MG Elemental)] 325 mg PO BID 07/14/16 [History] Rivaroxaban [Xarelto] 20 mg PO DAILY 03/09/17 [History] tiZANidine [Zanaflex] 8 mg PO HS 03/09/17 [History] Levothyroxine Sodium [Synthroid] 50 mcg PO DAILY 07/29/17 [History] Levothyroxine Sodium [Synthroid] 200 mcg PO DAILY 07/29/17 [History] Metoclopramide [Reglan] 10 mg PO ACHS 07/29/17 [History] Pantoprazole [Protonix] 40 mg PO AC-BID #20 tab 08/04/17 [Rx] Insulin Glargine [Lantus] 30 unit SQ HS vial 08/05/17 [Rx] LORazepam [Ativan] 0.5 mg PO HS PRN #20 tab 08/05/17 [Rx] Insulin Aspart [NovoLOG Flexpen] See Protocol SQ AC-TID 09/13/17 [History] Polyethylene Glycol 3350 [Miralax] 17 gm PO DAILY PRN 09/13/17 [History] Topiramate [Topamax] 50 mg PO BID 09/13/17 [History] Ondansetron [Zofran] 8 mg PO Q6HR PRN 09/25/17 [History] Trimethobenzamide HCl [Tigan] 300 mg PO TID PRN 09/25/17 [History] Metoprolol Succinate (ER) [Toprol XL] 50 mg PO DAILY #30 tab.er.24h 09/27/17 [Rx ] Follow up Appointment(s)/Referral(s): Jayesh Eli DO [Primary Care Provider] - 09/30/17 11:00 am Leah Vickers MD [STAFF PHYSICIAN] - 2 Weeks Patient Instructions/Handouts: Type 2 Diabetes in Adults (DC) Activity/Diet/Wound Care/Special Instructions: consistent carbohydrate activity as tolerated
--- NOTE | 2017-09-27 15:37 | DS ---
DISCHARGE SUMMARY DATE OF ADMISSION: 09/25/17. DATE OF DISCHARGE: 09/27/17. ATTENDING NOTE: The patient is examined by me. I discussed with my nurse practitioner, Ms. Nice. Patient admitted with left-sided hemiplegic migraine, given a burst of steroids to which she has improved. Power on the left side is 2 to 3/5 including the arms and legs. Headache is much improved. Tolerating a diet. Care was discussed with the patient. Patient is going to inpatient rehab. The patient dose of beta cipriano was cut back. Consultation with Dr. Vickers. The patient is to follow up with Dr. Garcia at the rehab. MMVERNELL / MARLONN: [id number] /
== END 2017-09-27 15:44 ==
LOC: EC 22:28 → 4MS4W 09-25 03:38
PROVIDERS: ADMIT Hospitalist; ATTEND Hospitalist
DX: G43.409 Hemiplegic migraine, not intractable, without status migrainosus (principal); G90.1 Familial dysautonomia [Riley-Day]; E88.40 Mitochondrial metabolism disorder, unspecified; E11.43 Type 2 diabetes mellitus with diabetic autonomic (poly)neuropathy; K31.84 Gastroparesis; M32.9 Systemic lupus erythematosus, unspecified; F31.9 Bipolar disorder, unspecified; Q21.1 Atrial septal defect; I89.0 Lymphedema, not elsewhere classified; E03.9 Hypothyroidism, unspecified; E06.3 Autoimmune thyroiditis; I47.2 Ventricular tachycardia; E28.2 Polycystic ovarian syndrome; D35.2 Benign neoplasm of pituitary gland; E66.01 Morbid (severe) obesity due to excess calories; Z68.41 Body mass index [BMI] 40.0-44.9, adult; E78.5 Hyperlipidemia, unspecified; Z79.4 Long term (current) use of insulin; Z79.01 Long term (current) use of anticoagulants; Z79.899 Other long term (current) drug therapy; Z88.1 Allergy status to other antibiotic agents; Z91.041 Radiographic dye allergy status; Z88.2 Allergy status to sulfonamides; Z88.7 Allergy status to serum and vaccine; Z88.8 Allergy status to other drugs, medicaments and biological substances; Z86.73 Personal history of transient ischemic attack (TIA), and cerebral infarction without residual deficits; Z86.718 Personal history of other venous thrombosis and embolism; Z86.14 Personal history of Methicillin resistant Staphylococcus aureus infection; Z87.440 Personal history of urinary (tract) infections
CPT/HCPCS: 36415; 70450; 80048; 83036; 83735; 84484; 85025; 93005; 96361; 96365; 96366; 96367; 96375; 96376; 99285

== ENCOUNTER 2017-10-18 23:43 | Emergency (ER) | payer MEDICARE, OTHER ==
[2017-10-18 23:50] VITALS: TEMP 100.6
[2017-10-19] MEDS ORDERED: FAMOTIDINE 20 MG/2 ML VIAL IV STA
[2017-10-19] MEDS ORDERED: ONDANSETRON 4 MG/2 ML VIAL IVP STA
--- NOTE | 2017-10-19 00:13 | ED ---
General Adult HPI - General Chief complaint: Abdominal Pain Stated complaint: ABD Pain Time Seen by Provider: 10/18/17 23:57 Source: patient, EMS, RN notes reviewed Mode of arrival: EMS - History of Present Illness Initial comments: 37 yo female presents to the ER with cc of left upper quadrant abdominal pain. Patient states this started this evening after dinner. She states she took Motrin Tylenol with no improvement. She states she's had nausea no vomiting. There's been diarrhea. She denies any fever chills. She denies any symptoms of this at home. She was concerned because it was on the left upper side which normally she has has pain on the right side with her gastroparesis. She was concerned due to her continued symptoms so that is why the patient is here. Patient denies any recent fever, chills, shortness of breath, chest pain, back pain, vomiting, numbness or tingling, dysuria or hematuria, constipation or diarrhea, headaches or visual changes, or any other current symptoms. - Related Data Home Medications Medication Instructions Recorded Confirmed Pravastatin Sodium [Pravachol] 40 mg PO HS 01/24/16 09/25/17 Cyanocobalamin [Vitamin B-12] 2,000 mcg PO DAILY 01/25/16 09/25/17 Ferrous Sulfate [Iron (65 MG 325 mg PO BID 07/14/16 09/25/17 Elemental)] Rivaroxaban [Xarelto] 20 mg PO DAILY 03/09/17 09/25/17 tiZANidine [Zanaflex] 8 mg PO HS 03/09/17 09/25/17 Levothyroxine Sodium [Synthroid] 50 mcg PO DAILY 07/29/17 09/25/17 Levothyroxine Sodium [Synthroid] 200 mcg PO DAILY 07/29/17 09/25/17 Metoclopramide [Reglan] 10 mg PO ACHS 07/29/17 09/25/17 Insulin Aspart [NovoLOG Flexpen] See Protocol SQ AC-TID 09/13/17 09/25/17 Polyethylene Glycol 3350 [Miralax] 17 gm PO DAILY PRN 09/13/17 09/25/17 Topiramate [Topamax] 50 mg PO BID 09/13/17 09/25/17 Ondansetron [Zofran] 8 mg PO Q6HR PRN 09/25/17 09/25/17 Trimethobenzamide HCl [Tigan] 300 mg PO TID PRN 09/25/17 09/25/17 Previous Rx's Medication Instructions Recorded Pantoprazole [Protonix] 40 mg PO AC-BID #20 tab 08/04/17 Insulin Glargine [Lantus] 30 unit SQ HS vial 08/05/17 LORazepam [Ativan] 0.5 mg PO HS PRN #20 tab 08/05/17 Metoprolol Succinate (ER) [Toprol 50 mg PO DAILY #30 tab.er.24h 09/27/17 XL] Dicyclomine [Bentyl] 10 mg PO TID #20 capsule 10/19/17 Ondansetron Odt [Zofran ODT] 4 mg PO Q8HR PRN #20 tab 10/19/17 Allergies Allergy/AdvReac Type Severity Reaction Status Date / Time barium sulfate Allergy Anaphylaxis Verified 09/25/17 08:51 doxepin [Doxepin] Allergy Anaphylaxis Verified 09/25/17 08:51 influenza virus vaccine, Allergy Rash/Hives Verified 09/25/17 08:51 specific [Influenza Virus Vacc,Specific] Iodinated Contrast- Oral and Allergy Swelling Verified 09/25/17 08:51 IV Dye [Iodinated Contrast Media - IV Dye] promethazine HCl Allergy Anaphylaxis Verified 09/25/17 08:51 [From Phenergan] sulfamethoxazole Allergy Rash/Hives Verified 09/25/17 08:51 [From Bactrim] trimethoprim [From Bactrim] Allergy Rash/Hives Verified 09/25/17 08:51 doxycycline AdvReac Nausea & Verified 09/25/17 08:51 Vomiting & Diarrhea Pertussis Vaccines AdvReac fever/seizu Verified 09/25/17 08:51 re pseudoephedrine AdvReac Chest Pain Verified 09/25/17 08:51 pseudoephedrine HCl AdvReac Chest Pain Verified 09/25/17 08:51 [From Sudafed] Review of Systems ROS Statement: Those systems with pertinent positive or pertinent negative responses have been documented in the HPI. ROS Other: All systems not noted in ROS Statement are negative. Past Medical History Past Medical History: Chest Pain / Angina, CVA/TIA, Deep Vein Thrombosis (DVT), Neurologic Disorder, Syncope, Thyroid Disorder Additional Past Medical History / Comment(s): "Dysautonomia-progressive neurological disorder, lupus/LUPUS ANTICOAGULANTS, ana maria's disease, lymphedema Lt arm, v-tach, pituitary microadenoma. "mitochondrial disease". patent foramen ovale. uti's, falls, orthostatic hypotension/syncope,migraine, polycystic ovarian syndrome,neuropathy. Uterine ablation August 2015. Patient no longer has periods. History of Any Multi-Drug Resistant Organisms: ESBL, MRSA Date of last positivie culture/infection: 03/09/17,09/13/17 ESBL MDRO Source:: LEFT ARM, URINE ECOLI Past Surgical History: Uterine Ablation Additional Past Surgical History / Comment(s): colonscopy/egd, angie, stress test. Past Anesthesia/Blood Transfusion Reactions: No Reported Reaction Additional Past Anesthesia/Blood Transfusion Reaction / Comment(s): patient states "It takes a lot of anesthesia for my body to react" Past Psychological History: Bipolar, Depression Smoking Status: Never smoker Past Alcohol Use History: None Reported Past Drug Use History: None Reported - Past Family History Brother(s) Family Medical History: Diabetes Mellitus, Hyperlipidemia, Hypertension Additional Family Medical History / Comment(s): Patient states she has 1 brother with no major medical problems. Father Family Medical History: Hyperlipidemia, Hypertension Additional Family Medical History / Comment(s): DAD IS 70 YEARS OLD. Patient states she does not have any contact with her father and does not know his medical history. Mother Family Medical History: Chest Pain / Angina, CVA/TIA, Hyperlipidemia, Hypertension Additional Family Medical History / Comment(s): AGE 62 HAS LUPUS, blood pressure swings high to low General Exam - General Exam Comments Initial Comments: General: The patient is awake and alert, in no distress, and does not appear acutely ill. Eye: Pupils are equal, round and reactive to light, extra-ocular movements are intact; there is normal conjunctiva bilaterally. No signs of icterus. Ears, nose, mouth and throat: There are moist mucous membranes. Neck: The neck is supple, there is no tenderness. Cardiovascular: There is a regular rate and rhythm. No murmur, rub or gallop is appreciated. Respiratory: Lungs are clear to auscultation, respirations are non-labored, breath sounds are equal. No wheezes, stridor, rales, or rhonchi. Gastrointestinal: Soft, non-distended, mild tenderness in the upper quadrant of the abdomen without masses or organomegaly noted. There is no rebound or guarding present. No CVA tenderness. Bowel sounds are unremarkable. Back: There is no tenderness to palpation in the midline. There is no obvious deformity. No rashes noted. Musculoskeletal: Normal ROM, no tenderness, There is no pedal edema. There is no calf tenderness or swelling. Sensation intact. Pulses equal bilaterally 2+. Neurological: CN II-XII intact, There are no obvious motor or sensory deficits. Coordination appears grossly intact. Speech is normal. Skin: Skin is warm and dry and no rashes or lesions are noted. Psychiatric: Cooperative, appropriate mood & affect, normal judgment. Course Vital Signs 10/18/17 10/19/17 23:47 00:47 Temperature 100.6 F H Pulse Rate 97 84 Respiratory 22 18 Rate Blood Pressure 129/64 108/56 O2 Sat by Pulse 97 98 Oximetry Medical Decision Making - Medical Decision Making 37-year-old female presents for left upper quadrant abdominal pain. This time patient's laboratory is reviewed. She has had a mildly elevated lactic acid however this has been chronic for her in the past. At this time we discussed continuing Motrin Tylenol for pain we did give her prescription for the nausea with Reglan. We did discuss that we will give her liter of fluids to for her hydration. We discussed return parameters all questions. Patient stated that she understood she is. Sclerae. She will be discharged home. - Lab Data Result diagrams: 10/19/17 00:35 10/19/17 00:35 Lab Results 10/19/17 10/19/17 10/19/17 Range/Units 00:20 00:20 00:35 WBC (3.8-10.6) k/uL RBC (3.80-5.40) m/uL Hgb (11.4-16.0) gm/dL Hct (34.0-46.0) % MCV (80.0-100.0) fL MCH (25.0-35.0) pg MCHC (31.0-37.0) g/dL RDW (11.5-15.5) % Plt Count (150-450) k/uL Neutrophils % % Lymphocytes % % Monocytes % % Eosinophils % % Basophils % % Neutrophils # (1.3-7.7) k/uL Lymphocytes # (1.0-4.8) k/uL Monocytes # (0-1.0) k/uL Eosinophils # (0-0.7) k/uL Basophils # (0-0.2) k/uL PT (9.0-12.0) sec INR (<1.2) APTT (22.0-30.0) sec Sodium 139 (137-145) mmol/L Potassium 4.7 (3.5-5.1) mmol/L Chloride 107 (98-107) mmol/L Carbon Dioxide 19 L (22-30) mmol/L Anion Gap 13 mmol/L BUN 13 (7-17) mg/dL Creatinine 0.80 (0.52-1.04) mg/dL Est GFR (MDRD) Af Amer >60 (>60 ml/min/1.73 sqM) Est GFR (MDRD) Non-Af >60 (>60 ml/min/1.73 sqM) Glucose 385 H (74-99) mg/dL Plasma Lactic Acid Joce (0.7-2.0) mmol/L Calcium 9.7 (8.4-10.2) mg/dL Phosphorus 3.7 (2.5-4.5) mg/dL Magnesium 1.8 (1.6-2.3) mg/dL Total Bilirubin 0.1 L (0.2-1.3) mg/dL AST 19 (14-36) U/L ALT 32 (9-52) U/L Alkaline Phosphatase 102 (38-126) U/L Total Protein 6.4 (6.3-8.2) g/dL Albumin 3.8 (3.5-5.0) g/dL Amylase <30 L (30-110) U/L Lipase 134 (23-300) U/L Urine Color Yellow Urine Appearance Clear (Clear) Urine pH 6.5 (5.0-8.0) Ur Specific [place] 1.011 (1.001-1.035) Urine Protein Negative (Negative) Urine Glucose (UA) 3+ H (Negative) Urine Ketones Negative (Negative) Urine Blood Negative (Negative) Urine Nitrite Negative (Negative) Urine Bilirubin Negative (Negative) Urine Urobilinogen <2.0 (<2.0) mg/dL Ur Leukocyte Esterase Negative (Negative) Urine HCG, Qual Not Detected (Not Detectd) Acetone, Qual Negative (Negative) 10/19/17 10/19/17 10/19/17 Range/Units 00:35 00:35 00:35 WBC 7.0 (3.8-10.6) k/uL RBC 4.27 (3.80-5.40) m/uL Hgb 11.8 (11.4-16.0) gm/dL Hct 37.0 (34.0-46.0) % MCV 86.6 (80.0-100.0) fL MCH 27.6 (25.0-35.0) pg MCHC 31.9 (31.0-37.0) g/dL RDW 15.7 H (11.5-15.5) % Plt Count 338 (150-450) k/uL Neutrophils % 63 % Lymphocytes % 24 % Monocytes % 8 % Eosinophils % 3 % Basophils % 1 % Neutrophils # 4.5 (1.3-7.7) k/uL Lymphocytes # 1.7 (1.0-4.8) k/uL Monocytes # 0.5 (0-1.0) k/uL Eosinophils # 0.2 (0-0.7) k/uL Basophils # 0.0 (0-0.2) k/uL PT 11.2 (9.0-12.0) sec INR 1.1 (<1.2) APTT 28.4 (22.0-30.0) sec Sodium (137-145) mmol/L Potassium (3.5-5.1) mmol/L Chloride (98-107) mmol/L Carbon Dioxide (22-30) mmol/L Anion Gap mmol/L BUN (7-17) mg/dL Creatinine (0.52-1.04) mg/dL Est GFR (MDRD) Af Amer (>60 ml/min/1.73 sqM) Est GFR (MDRD) Non-Af (>60 ml/min/1.73 sqM) Glucose (74-99) mg/dL Plasma Lactic Acid Joce 2.4 H* (0.7-2.0) mmol/L Calcium (8.4-10.2) mg/dL Phosphorus (2.5-4.5) mg/dL Magnesium (1.6-2.3) mg/dL Total Bilirubin (0.2-1.3) mg/dL AST (14-36) U/L ALT (9-52) U/L Alkaline Phosphatase (38-126) U/L Total Protein (6.3-8.2) g/dL Albumin (3.5-5.0) g/dL Amylase (30-110) U/L Lipase (23-300) U/L Urine Color Urine Appearance (Clear) Urine pH (5.0-8.0) Ur Specific [place] (1.001-1.035) Urine Protein (Negative) Urine Glucose (UA) (Negative) Urine Ketones (Negative) Urine Blood (Negative) Urine Nitrite (Negative) Urine Bilirubin (Negative) Urine Urobilinogen (<2.0) mg/dL Ur Leukocyte Esterase (Negative) Urine HCG, Qual (Not Detectd) Acetone, Qual (Negative) - Radiology Data Radiology results: report reviewed, image reviewed Disposition Clinical Impression: Abdominal pain, Dehydration Disposition: HOME SELF-CARE Condition: Stable Instructions: Abdominal Pain (ED) Additional Instructions: Please use medication as discussed. Please follow up with family doctor if symptoms have not improved over the next two days. Please return to the emergency room if your symptoms increase or worsen or for any other concerns. Prescriptions: Dicyclomine [Bentyl] 10 mg PO TID #20 capsule Ondansetron Odt [Zofran ODT] 4 mg PO Q8HR PRN #20 tab PRN Reason: Nausea Referrals: Jayesh Eli DO [Primary Care Provider] - 1-2 days Time of Disposition: 01:15
[2017-10-19 00:25] LABS: Appearance,Urine Clear (Clear); Bilirubin,Urine Negative (Negative); Glucose,Urine (UA) 3+ (Negative); Ketones,Urine Negative (Negative); Leukocyte Esterase,Urine Negative (Negative); Nitrite,Urine Negative (Negative); PH, Urine 6.5 (5.0-8.0); Protein,Urine Negative (Negative); Specific Gravity,Urine 1.011 (1.001-1.035); UA Billing (MACRO vs. MICRO) CHEM; Urobilinogen,Urine <2.0 mg/dL (<2.0)
[2017-10-19 00:49] VITALS: RESP 18
[2017-10-19 00:52] LABS: Basophils % (A) 1 %; CH 27.6; Eosinophils # (A) 0.2 k/uL (0-0.7); Eosinophils % (A) 3 %; HDW 2.67; HGB 11.8 gm/dL (11.4-16.0); Luc # (Auto) 0.09; Luc % (Auto) 1; Lymphocytes # (A) 1.7 k/uL (1.0-4.8); Lymphocytes % (A) 24 %; MCH 27.6 pg (25.0-35.0); MCHC 31.9 g/dL (31.0-37.0); MCV 86.6 fL (80.0-100.0); Mean Platelet Volume 7.5; Monocytes # (A) 0.5 k/uL (0-1.0); Monocytes % (A) 8 %; Neutrophils # (A) 4.5 k/uL (1.3-7.7); Neutrophils % (A) 63 %; RBC 4.27 m/uL (3.80-5.40); RDW 15.7 % (11.5-15.5); WBC (Perox) 7.07
[2017-10-19 00:56] LABS: INR 1.1 (<1.2); Partial Thromboplastin Time 28.4 sec (22.0-30.0); Prothrombin Time 11.2 sec (9.0-12.0)
[2017-10-19 01:03] LABS: ALT 32 U/L (9-52); AST 19 U/L (14-36); Alkaline Phosphatase 102 U/L (38-126); Amylase <30 U/L (30-110); Anion Gap 13 mmol/L; Blood Urea Nitrogen 13 mg/dL (7-17); Calcium 9.7 mg/dL (8.4-10.2); Carbon Dioxide 19 mmol/L (22-30); Chloride 107 mmol/L (98-107); Glucose 385 mg/dL (74-99); Magnesium 1.8 mg/dL (1.6-2.3); Non-African American GFR(MDRD) >60 (>60 ml/min/1.73 sqM); Phosphorus 3.7 mg/dL (2.5-4.5); Potassium 4.7 mmol/L (3.5-5.1); Sodium 139 mmol/L (137-145); Total Bilirubin 0.1 mg/dL (0.2-1.3); Total Protein 6.4 g/dL (6.3-8.2)
[2017-10-19] MEDS ORDERED: SODIUM CHLORIDE 0.9% 1,000 ML IV STA ×2 (01:07)
--- NOTE | 2017-10-19 01:09 | CT ---
EXAMINATION TYPE: CT abdomen pelvis wo con DATE OF EXAM: 10/19/2017 COMPARISON: 09/01/2015 HISTORY: LUQ abd pain CT DLP: 1380.20 mGycm Automated exposure control for dose reduction was used. TECHNIQUE: Helical acquisition of images was performed from the lung bases through the pelvis. FINDINGS: Lung bases are clear. There is no pleural effusion. Liver spleen pancreas appear normal. Gallbladder is contracted. Bile ducts are not dilated. There is no adrenal mass. Kidneys have normal size and contour. There is no hydronephrosis. Ureters are not dilated. There is n o retroperitoneal adenopathy. There is no ascites. Appendix appears normal. Bladder distends smoothly . There is no sign of a pelvic mass. The lumbar spine is intact. Uterus is anteverted. I see no intestinal wall thickening. There are no dilated loops. IMPRESSION: NEGATIVE CT SCAN OF THE ABDOMEN AND PELVIS. I DO NOT SEE A CAUSE FOR LEFT UPPER QUADRANT PAIN. No adv erse change compared to old exam.
[2017-10-19] MEDS ORDERED: METOCLOPRAMIDE 5 MG/ML 2 ML VIAL IVP STA (01:14)
[2017-10-19] MEDS ORDERED: KETOROLAC 30 MG/ML 1 ML VIAL IVP STA (01:14)
[2017-10-19 02:56] VITALS: BP 130/69; PULSE 83
== END 2017-10-19 02:55 | disposition home or self-care (01) ==
LOC: EC 23:43
DX: R10.12 Left upper quadrant pain (principal); E86.0 Dehydration; R74.0 Nonspecific elevation of levels of transaminase and lactic acid dehydrogenase [LDH]; E07.9 Disorder of thyroid, unspecified; F31.9 Bipolar disorder, unspecified; Z86.73 Personal history of transient ischemic attack (TIA), and cerebral infarction without residual deficits; Z86.718 Personal history of other venous thrombosis and embolism; Z86.14 Personal history of Methicillin resistant Staphylococcus aureus infection; Z88.7 Allergy status to serum and vaccine; Z91.041 Radiographic dye allergy status; Z88.2 Allergy status to sulfonamides; Z88.1 Allergy status to other antibiotic agents; Z88.8 Allergy status to other drugs, medicaments and biological substances; Z79.01 Long term (current) use of anticoagulants; Z79.4 Long term (current) use of insulin; Z79.899 Other long term (current) drug therapy
CPT/HCPCS: 99285; 96374; 96375 ×3; 96361 ×2; 36415; 80053; 82150; 82009; 83605; 83690; 83735; 84100; 85025; 85610; 85730; 81003; 81025; 87040; 87086; 74176; J2765; J2405; J1885

== ENCOUNTER 2017-12-17 13:43 | Emergency (ER) | payer MEDICARE, OTHER ==
[2017-12-17 13:54] VITALS: RESP 18
[2017-12-17] MEDS ORDERED: SODIUM CHLORIDE 0.9% 1,000 ML IV STA (14:48)
--- NOTE | 2017-12-17 14:57 | ED ---
General Adult HPI - General Chief complaint: Extremity Injury, Upper Stated complaint: Arm pain Time Seen by Provider: 12/17/17 14:38 Source: patient Mode of arrival: ambulatory Limitations: no limitations - Related Data Home Medications Medication Instructions Recorded Confirmed Pravastatin Sodium [Pravachol] 40 mg PO HS 01/24/16 10/24/17 Cyanocobalamin [Vitamin B-12] 2,000 mcg PO DAILY 01/25/16 10/24/17 Ferrous Sulfate [Iron (65 MG 325 mg PO BID 07/14/16 10/24/17 Elemental)] Rivaroxaban [Xarelto] 20 mg PO DAILY 03/09/17 10/24/17 tiZANidine [Zanaflex] 8 mg PO HS 03/09/17 10/24/17 Levothyroxine Sodium [Synthroid] 50 mcg PO DAILY 07/29/17 10/24/17 Levothyroxine Sodium [Synthroid] 200 mcg PO DAILY 07/29/17 10/24/17 Metoclopramide [Reglan] 10 mg PO ACHS 07/29/17 10/24/17 Insulin Aspart [NovoLOG Flexpen] See Protocol SQ AC-TID 09/13/17 10/24/17 Topiramate [Topamax] 75 mg PO BID 09/13/17 10/24/17 Ondansetron [Zofran] 8 mg PO Q6HR PRN 09/25/17 10/24/17 Trimethobenzamide HCl [Tigan] 300 mg PO TID PRN 09/25/17 10/24/17 Metoprolol Succinate (ER) [Toprol 100 mg PO DAILY 10/24/17 10/24/17 Xl] Previous Rx's Medication Instructions Recorded Pantoprazole [Protonix] 40 mg PO AC-BID #20 tab 08/04/17 Insulin Glargine [Lantus] 30 unit SQ HS vial 08/05/17 Allergies Allergy/AdvReac Type Severity Reaction Status Date / Time barium sulfate Allergy Anaphylaxis Verified 12/17/17 14:56 doxepin [Doxepin] Allergy Anaphylaxis Verified 12/17/17 14:56 influenza virus vaccine, Allergy Rash/Hives Verified 12/17/17 14:56 specific [Influenza Virus Vacc,Specific] promethazine HCl Allergy Anaphylaxis Verified 12/17/17 14:56 [From Phenergan] sulfamethoxazole Allergy Nausea & Verified 12/17/17 14:56 [From Bactrim] Vomiting trimethoprim [From Bactrim] Allergy Nausea & Verified 12/17/17 14:56 Vomiting doxycycline AdvReac Nausea & Verified 12/17/17 14:56 Vomiting & Diarrhea Pertussis Vaccines AdvReac fever/seizu Verified 12/17/17 14:56 re pseudoephedrine AdvReac Chest Pain Verified 12/17/17 14:56 pseudoephedrine HCl AdvReac Chest Pain Verified 12/17/17 14:56 [From Sudafed] Review of Systems ROS Statement: Those systems with pertinent positive or pertinent negative responses have been documented in the HPI. ROS Other: All systems not noted in ROS Statement are negative. Past Medical History Past Medical History: Chest Pain / Angina, CVA/TIA, Deep Vein Thrombosis (DVT), Neurologic Disorder, Syncope, Thyroid Disorder Additional Past Medical History / Comment(s): "Dysautonomia-progressive neurological disorder, lupus/LUPUS ANTICOAGULANTS, ana maria's disease, lymphedema Lt arm, v-tach, pituitary microadenoma. "mitochondrial disease". patent foramen ovale. uti's, falls, orthostatic hypotension/syncope,migraine, polycystic ovarian syndrome,neuropathy. Uterine ablation August 2015. Patient no longer has periods. History of Any Multi-Drug Resistant Organisms: ESBL, MRSA Date of last positivie culture/infection: 03/09/17,09/13/17 ESBL MDRO Source:: LEFT ARM, URINE ECOLI Past Surgical History: Uterine Ablation Additional Past Surgical History / Comment(s): colonscopy/egd, angie, stress test. Past Anesthesia/Blood Transfusion Reactions: No Reported Reaction Additional Past Anesthesia/Blood Transfusion Reaction / Comment(s): patient states "It takes a lot of anesthesia for my body to react" Past Psychological History: Bipolar, Depression Smoking Status: Never smoker Past Alcohol Use History: None Reported Past Drug Use History: None Reported - Past Family History Brother(s) Family Medical History: Diabetes Mellitus, Hyperlipidemia, Hypertension Additional Family Medical History / Comment(s): Patient states she has 1 brother with no major medical problems. Father Family Medical History: Hyperlipidemia, Hypertension Additional Family Medical History / Comment(s): DAD IS 70 YEARS OLD. Patient states she does not have any contact with her father and does not know his medical history. Mother Family Medical History: Chest Pain / Angina, CVA/TIA, Hyperlipidemia, Hypertension Additional Family Medical History / Comment(s): AGE 62 HAS LUPUS, blood pressure swings high to low General Exam Limitations: no limitations Course Vital Signs 12/17/17 13:50 Temperature 100.3 F H Pulse Rate 94 Respiratory 18 Rate Blood Pressure 143/85 O2 Sat by Pulse 98 Oximetry Disposition Referrals: Maryellen Joel MD [Primary Care Provider] - 1-2 days
--- NOTE | 2017-12-17 15:03 | ED ---
General Adult HPI - General Chief complaint: Extremity Injury, Upper Stated complaint: Arm pain Time Seen by Provider: 12/17/17 14:38 Source: patient, RN notes reviewed Mode of arrival: ambulatory Limitations: no limitations - History of Present Illness Initial comments: 37-year-old female with past medical history of lupus, hemiplegic migraine, DVT , hypothyroidism, diabetes, presenting to the emergency room today with a chief complaint of increased weakness to the left upper extremity. Patient does admit that she last night began feeling some pain and some swelling to left upper arm. Also admits that she began having some weakness and decreased range of motion. She states she's had episodes similar to this in the past with migraines. Patient states that the swelling is slightly different. Worried about possible blood clot as she has had DVT in the past currently on several Xarelto. Patient denies any other complaints or symptoms. Denies any weakness to the lower extremities. States she's noticed decreased range of motion worse this morning when she woke up. States that she went bad last night hoping that it would be better when she got up in the morning. Patient denies any recent fever, chills, shortness of breath, chest pain, back pain, abdominal pain, nausea or vomiting, numbness tingling, dysuria or hematuria, constipation or diarrhea, headaches or visual changes, or any other complaints. - Related Data Home Medications Medication Instructions Recorded Confirmed Pravastatin Sodium [Pravachol] 40 mg PO HS 01/24/16 12/17/17 Cyanocobalamin [Vitamin B-12] 2,000 mcg PO DAILY 01/25/16 12/17/17 Ferrous Sulfate [Iron (65 MG 325 mg PO BID 07/14/16 12/17/17 Elemental)] Rivaroxaban [Xarelto] 20 mg PO HS 03/09/17 12/17/17 tiZANidine [Zanaflex] 8 mg PO HS 03/09/17 12/17/17 Levothyroxine Sodium [Synthroid] 50 mcg PO DAILY 07/29/17 12/17/17 Levothyroxine Sodium [Synthroid] 200 mcg PO DAILY 07/29/17 12/17/17 Metoclopramide [Reglan] 10 mg PO ACHS 07/29/17 12/17/17 Insulin Aspart [NovoLOG Flexpen] See Protocol SQ AC-TID 09/13/17 12/17/17 Topiramate [Topamax] 75 mg PO BID 09/13/17 12/17/17 Ondansetron [Zofran] 8 mg PO Q6HR PRN 09/25/17 12/17/17 Trimethobenzamide HCl [Tigan] 300 mg PO TID PRN 09/25/17 12/17/17 Metoprolol Succinate (ER) [Toprol 100 mg PO DAILY 10/24/17 12/17/17 Xl] Ranitidine HCl 150 mg PO BID 12/17/17 12/17/17 Previous Rx's Medication Instructions Recorded Insulin Glargine [Lantus] 30 unit SQ HS vial 08/05/17 Allergies Allergy/AdvReac Type Severity Reaction Status Date / Time barium sulfate Allergy Anaphylaxis Verified 12/17/17 14:56 doxepin [Doxepin] Allergy Anaphylaxis Verified 12/17/17 14:56 influenza virus vaccine, Allergy Rash/Hives Verified 12/17/17 14:56 specific [Influenza Virus Vacc,Specific] promethazine HCl Allergy Anaphylaxis Verified 12/17/17 14:56 [From Phenergan] sulfamethoxazole Allergy Nausea & Verified 12/17/17 14:56 [From Bactrim] Vomiting trimethoprim [From Bactrim] Allergy Nausea & Verified 12/17/17 14:56 Vomiting doxycycline AdvReac Nausea & Verified 12/17/17 14:56 Vomiting & Diarrhea Pertussis Vaccines AdvReac fever/seizu Verified 12/17/17 14:56 re pseudoephedrine AdvReac Chest Pain Verified 12/17/17 14:56 pseudoephedrine HCl AdvReac Chest Pain Verified 12/17/17 14:56 [From Sudafed] Review of Systems ROS Statement: Those systems with pertinent positive or pertinent negative responses have been documented in the HPI. ROS Other: All systems not noted in ROS Statement are negative. Past Medical History Past Medical History: Chest Pain / Angina, CVA/TIA, Deep Vein Thrombosis (DVT), Neurologic Disorder, Syncope, Thyroid Disorder Additional Past Medical History / Comment(s): "Dysautonomia-progressive neurological disorder, lupus/LUPUS ANTICOAGULANTS, ana maria's disease, lymphedema Lt arm, v-tach, pituitary microadenoma. "mitochondrial disease". patent foramen ovale. uti's, falls, orthostatic hypotension/syncope,migraine, polycystic ovarian syndrome,neuropathy. Uterine ablation August 2015. Patient no longer has periods. History of Any Multi-Drug Resistant Organisms: ESBL, MRSA Date of last positivie culture/infection: 03/09/17,09/13/17 ESBL MDRO Source:: LEFT ARM, URINE ECOLI Past Surgical History: Uterine Ablation Additional Past Surgical History / Comment(s): colonscopy/egd, angie, stress test. Past Anesthesia/Blood Transfusion Reactions: No Reported Reaction Additional Past Anesthesia/Blood Transfusion Reaction / Comment(s): patient states "It takes a lot of anesthesia for my body to react" Past Psychological History: Bipolar, Depression Smoking Status: Never smoker Past Alcohol Use History: None Reported Past Drug Use History: None Reported - Past Family History Brother(s) Family Medical History: Diabetes Mellitus, Hyperlipidemia, Hypertension Additional Family Medical History / Comment(s): Patient states she has 1 brother with no major medical problems. Father Family Medical History: Hyperlipidemia, Hypertension Additional Family Medical History / Comment(s): DAD IS 70 YEARS OLD. Patient states she does not have any contact with her father and does not know his medical history. Mother Family Medical History: Chest Pain / Angina, CVA/TIA, Hyperlipidemia, Hypertension Additional Family Medical History / Comment(s): AGE 62 HAS LUPUS, blood pressure swings high to low General Exam - General Exam Comments Initial Comments: General: The patient is awake and alert, in no distress, and does not appear acutely ill. Eye: Pupils are equal, round and reactive to light, extra-ocular movements are intact. No nystagmus. There is normal conjunctiva bilaterally. No signs of icterus. Ears, nose, mouth and throat: There are moist mucous membranes and no oral lesions. Neck: The neck is supple, there is no tenderness or JVD. Cardiovascular: There is a regular rate and rhythm. No murmur, rub or gallop is appreciated. Respiratory: Lungs are clear to auscultation, respirations are non-labored, breath sounds are equal. No wheezes, stridor, rales, or rhonchi. Musculoskeletal: Sensation intact. Pulses equal bilaterally 2+. Neurological: A&O x 3. CN II-XII intact, Speech is normal. Decreased range of motion with the left upper extremity. Fingers and a flexed position patient states unable to open. Shows limited range of motion with flexion and extension at the left elbow last 10-15. Patient shows limited range of motion with abduction and extension of the left shoulder. Sensations are intact. Skin: Skin is warm and dry and no rashes or lesions are noted. Psychiatric: Cooperative, appropriate mood & affect, normal judgment. Limitations: no limitations Course Vital Signs 12/17/17 13:50 Temperature 100.3 F H Pulse Rate 94 Respiratory 18 Rate Blood Pressure 143/85 O2 Sat by Pulse 98 Oximetry Medical Decision Making - Medical Decision Making Case discussed in detail with attending physician Dr. Diaz. Patient reexamined at this time shows no signs of distress resting comfortably. Patient does admit that she's had similar symptoms in the past. Patient's ultrasound today does show evidence for a superficial thrombosis. Patient ultrasound shows no evidence of DVT. Patient's CT of the head and neck reviewed showing degenerative changes at the bases cervical spine. No other acute abnormalities. Patient's labs reviewed mild elevation of white count at 14,000. Shows similar previous labs. Patient advised Tylenol for pain. Warm compresses to the area and follow-up the family doctor in the next 2 days. Advised return if any symptoms increase or worsen. Patient states understanding and is in agreement. - Lab Data Result diagrams: 12/17/17 15:00 12/17/17 15:00 Lab Results 12/17/17 12/17/17 12/17/17 Range/Units 15:00 15:00 15:00 WBC 14.4 H (3.8-10.6) k/uL RBC 4.93 (3.80-5.40) m/uL Hgb 13.8 (11.4-16.0) gm/dL Hct 43.2 (34.0-46.0) % MCV 87.7 (80.0-100.0) fL MCH 28.0 (25.0-35.0) pg MCHC 32.0 (31.0-37.0) g/dL RDW 15.8 H (11.5-15.5) % Plt Count 397 (150-450) k/uL Neutrophils % 79 % Lymphocytes % 13 % Monocytes % 5 % Eosinophils % 2 % Basophils % 1 % Neutrophils # 11.4 H (1.3-7.7) k/uL Lymphocytes # 1.9 (1.0-4.8) k/uL Monocytes # 0.7 (0-1.0) k/uL Eosinophils # 0.2 (0-0.7) k/uL Basophils # 0.1 (0-0.2) k/uL PT (9.0-12.0) sec INR (<1.2) APTT (22.0-30.0) sec Sodium 142 (137-145) mmol/L Potassium 4.4 (3.5-5.1) mmol/L Chloride 106 (98-107) mmol/L Carbon Dioxide 18 L (22-30) mmol/L Anion Gap 18 mmol/L BUN 11 (7-17) mg/dL Creatinine 0.80 (0.52-1.04) mg/dL Est GFR (MDRD) Af Amer >60 (>60 ml/min/1.73 sqM) Est GFR (MDRD) Non-Af >60 (>60 ml/min/1.73 sqM) Glucose 129 H (74-99) mg/dL Calcium 10.5 H (8.4-10.2) mg/dL Total Bilirubin 0.4 (0.2-1.3) mg/dL AST 31 (14-36) U/L ALT 23 (9-52) U/L Alkaline Phosphatase 127 H (38-126) U/L Total Protein 8.5 H (6.3-8.2) g/dL Albumin 5.1 H (3.5-5.0) g/dL Urine Color Urine Appearance (Clear) Urine pH (5.0-8.0) Ur Specific [place] (1.001-1.035) Urine Protein (Negative) Urine Glucose (UA) (Negative) Urine Ketones (Negative) Urine Blood (Negative) Urine Nitrite (Negative) Urine Bilirubin (Negative) Urine Urobilinogen (<2.0) mg/dL Ur Leukocyte Esterase (Negative) Urine HCG, Qual Not Detected (Not Detectd) 12/17/17 12/17/17 Range/Units 15:00 15:00 WBC (3.8-10.6) k/uL RBC (3.80-5.40) m/uL Hgb (11.4-16.0) gm/dL Hct (34.0-46.0) % MCV (80.0-100.0) fL MCH (25.0-35.0) pg MCHC (31.0-37.0) g/dL RDW (11.5-15.5) % Plt Count (150-450) k/uL Neutrophils % % Lymphocytes % % Monocytes % % Eosinophils % % Basophils % % Neutrophils # (1.3-7.7) k/uL Lymphocytes # (1.0-4.8) k/uL Monocytes # (0-1.0) k/uL Eosinophils # (0-0.7) k/uL Basophils # (0-0.2) k/uL PT 10.2 (9.0-12.0) sec INR 1.0 (<1.2) APTT 28.6 (22.0-30.0) sec Sodium (137-145) mmol/L Potassium (3.5-5.1) mmol/L Chloride (98-107) mmol/L Carbon Dioxide (22-30) mmol/L Anion Gap mmol/L BUN (7-17) mg/dL Creatinine (0.52-1.04) mg/dL Est GFR (MDRD) Af Amer (>60 ml/min/1.73 sqM) Est GFR (MDRD) Non-Af (>60 ml/min/1.73 sqM) Glucose (74-99) mg/dL Calcium (8.4-10.2) mg/dL Total Bilirubin (0.2-1.3) mg/dL AST (14-36) U/L ALT (9-52) U/L Alkaline Phosphatase (38-126) U/L Total Protein (6.3-8.2) g/dL Albumin (3.5-5.0) g/dL Urine Color Light Yellow Urine Appearance Clear (Clear) Urine pH 5.5 (5.0-8.0) Ur Specific [place] 1.007 (1.001-1.035) Urine Protein Trace H (Negative) Urine Glucose (UA) Negative (Negative) Urine Ketones Negative (Negative) Urine Blood Negative (Negative) Urine Nitrite Negative (Negative) Urine Bilirubin Negative (Negative) Urine Urobilinogen <2.0 (<2.0) mg/dL Ur Leukocyte Esterase Negative (Negative) Urine HCG, Qual (Not Detectd) Disposition Clinical Impression: Superficial venous thrombosis of arm Disposition: HOME SELF-CARE Condition: Good Instructions: Superficial Thrombophlebitis (ED) Additional Instructions: Please use Tylenol for pain and warm compresses to the affected area. Please follow-up with family doctor in the next 1-2 days. Please return to emergency room if the symptoms increase or worsen or for any other concerns. Referrals: Maryellen Joel MD [Primary Care Provider] - 1-2 days Time of Disposition: 17:23
[2017-12-17] MEDS ORDERED: ACETAMINOPHEN IV (For NPO) 1,000 MG in EMPTY BAG 1 BAG IVPB STA (15:04)
[2017-12-17 15:15] LABS: Basophils # (A) 0.1 k/uL (0-0.2); Basophils % (A) 1 %; Eosinophils # (A) 0.2 k/uL (0-0.7); Eosinophils % (A) 2 %; HCT 43.2 % (34.0-46.0); HGB 13.8 gm/dL (11.4-16.0); Lymphocytes # (A) 1.9 k/uL (1.0-4.8); Lymphocytes % (A) 13 %; MCV 87.7 fL (80.0-100.0); Mean Platelet Volume 7.5; Monocytes # (A) 0.7 k/uL (0-1.0); Monocytes % (A) 5 %; Neutrophils # (A) 11.4 k/uL (1.3-7.7); Neutrophils % (A) 79 %; Platelet Count 397 k/uL (150-450); RBC 4.93 m/uL (3.80-5.40); RDW 15.8 % (11.5-15.5); WBC 14.4 k/uL (3.8-10.6)
[2017-12-17 15:22] LABS: Appearance,Urine Clear (Clear); Bilirubin,Urine Negative (Negative); Blood,Urine Negative (Negative); Color,Urine Light Yellow; Glucose,Urine (UA) Negative (Negative); Ketones,Urine Negative (Negative); Leukocyte Esterase,Urine Negative (Negative); Nitrite,Urine Negative (Negative); PH, Urine 5.5 (5.0-8.0); Protein,Urine Trace (Negative); Specific Gravity,Urine 1.007 (1.001-1.035); Urobilinogen,Urine <2.0 mg/dL (<2.0)
[2017-12-17 15:25] LABS: ALT 23 U/L (9-52); AST 31 U/L (14-36); Albumin 5.1 g/dL (3.5-5.0); Alkaline Phosphatase 127 U/L (38-126); Anion Gap 18 mmol/L; Blood Urea Nitrogen 11 mg/dL (7-17); Calcium 10.5 mg/dL (8.4-10.2); Carbon Dioxide 18 mmol/L (22-30); Chloride 106 mmol/L (98-107); Glucose 129 mg/dL (74-99); Potassium 4.4 mmol/L (3.5-5.1); Sodium 142 mmol/L (137-145); Total Bilirubin 0.4 mg/dL (0.2-1.3); Total Protein 8.5 g/dL (6.3-8.2)
[2017-12-17 15:35] LABS: Prothrombin Time 10.2 sec (9.0-12.0)
[2017-12-17 15:36] LABS: Partial Thromboplastin Time 28.6 sec (22.0-30.0)
--- NOTE | 2017-12-17 15:51 | CT ---
EXAMINATION TYPE: CT brain cspine wo con DATE OF EXAM: 12/17/2017 COMPARISON: CT brain October 04, 2017. CT cervical spine February 17, 2014. HISTORY: Left arm numbness and pain. Neck pain. CT DLP: 1607.6 mGycm. Automated Exposure Control for Dose Reduction was Utilized. TECHNIQUE: CT scan of the head and cervical spine are performed without contrast. FINDINGS: There is no acute intracranial hemorrhage, mass effect, or midline shift identified. Gra y-white matter differentiation is maintained. The ventricles and sulci are within normal limits in si ze. The globes are intact and the visualized sinuses are clear. The calvarium is intact. Cervical spine is visualized in its entirety from C1 through upper thoracic levels and redemonstrates straightened alignment without evidence of acute fracture or dislocation. Prevertebral soft tissue appears within normal limits. The C1-C2 articulation is within normal limits on the coronal images. Vertebral body heights are maintained. There is new mild disc space narrowing with mild to moderate a nterior spurring C5-C6 and C6-C7 levels. Spinal canal is grossly preserved on sagittal and axial imag es. Thyroid gland is felt within normal limits. Lung apices are clear. IMPRESSION: 1. There is no acute fracture or dislocation evident in the cervical spine. Some new degenerative stewart nge C5-C6 and C6-C7 level noted. 2. No acute intracranial hemorrhage or midline shift is seen. No significant change from prior study.
--- NOTE | 2017-12-17 16:58 | US ---
EXAMINATION TYPE: US venous doppler duplex UE LT DATE OF EXAM: 12/17/2017 COMPARISON: Prior left upper extremity venous ultrasound March 07, 2017 CLINICAL HISTORY: Pain. h/o LUE DVT 10 years ago, swelling, numbness, inability to move it SIDE PERFORMED: Left Left Arm: Appears to have internal debris within basilic vein of upper arm, not fully compressible bu t blood flow was seen around debris, probable non occluding superficial thrombus. IMPRESSION: Partial occlusive superficial thrombus identified left basilic vein. No acute DVT left upper extremit y identified.
[2017-12-17 17:40] VITALS: BP 138/83; PULSE 56; TEMP 99.3
== END 2017-12-17 17:41 | disposition home or self-care (01) ==
LOC: EC 13:43
DX: I82.612 Acute embolism and thrombosis of superficial veins of left upper extremity (principal); M47.812 Spondylosis without myelopathy or radiculopathy, cervical region; D72.829 Elevated white blood cell count, unspecified; E11.9 Type 2 diabetes mellitus without complications; E03.9 Hypothyroidism, unspecified; Z86.14 Personal history of Methicillin resistant Staphylococcus aureus infection; Z88.8 Allergy status to other drugs, medicaments and biological substances; Z88.7 Allergy status to serum and vaccine; Z88.2 Allergy status to sulfonamides; Z88.1 Allergy status to other antibiotic agents; Z79.01 Long term (current) use of anticoagulants; Z79.4 Long term (current) use of insulin; Z79.899 Other long term (current) drug therapy
CPT/HCPCS: 36415; 80053; 85025; 85610; 85730; 81003; 81025; 93971; 72125; 70450; 99284; 96365; 96361; J0131

== ENCOUNTER 2017-12-21 17:41 | Emergency (ER) | payer MEDICARE, OTHER ==
[2017-12-21] MEDS ORDERED: ONDANSETRON 4 MG/2 ML VIAL IVP STA (20:24)
[2017-12-21] MEDS ORDERED: HYDROmorphone 0.5 MG/0.5 ML SYRINGE IVP STA (20:24)
[2017-12-21] MEDS ORDERED: RX INFO: IV CONTRAST WAS GIVEN 1 EACH MISC MISCELLANE PRN (20:24)
[2017-12-21] MEDS ORDERED: ACETAMINOPHEN TAB 500 MG TAB PO STA (20:45)
[2017-12-21 20:57] LABS: Basophils # (A) 0.1 k/uL (0-0.2); Basophils % (A) 1 %; Eosinophils # (A) 0.2 k/uL (0-0.7); Eosinophils % (A) 1 %; HCT 43.5 % (34.0-46.0); Lymphocytes % (A) 14 %; MCH 28.2 pg (25.0-35.0); MCHC 32.2 g/dL (31.0-37.0); MCV 87.5 fL (80.0-100.0); Monocytes # (A) 0.7 k/uL (0-1.0); Monocytes % (A) 5 %; Neutrophils # (A) 11.5 k/uL (1.3-7.7); Neutrophils % (A) 79 %; Platelet Count 406 k/uL (150-450); RBC 4.97 m/uL (3.80-5.40); RDW 15.4 % (11.5-15.5); WBC 14.6 k/uL (3.8-10.6)
--- NOTE | 2017-12-21 21:03 | ED ---
General Adult HPI - General Source: patient, family, RN notes reviewed, old records reviewed Mode of arrival: ambulatory Limitations: no limitations <Gasper Gann - Last Filed: 12/21/17 21:05> <Marques Diaz - Last Filed: 01/03/18 02:36> - General Chief complaint: Headache Stated complaint: Headache/flu symptoms Time Seen by Provider: 12/21/17 20:13 - History of Present Illness Initial comments: Chief complaint and history of present illness a 37-year-old female with complaint of acute headache. Patient recently had a CAT scan of the brain because of dysfunction to her left arm. There is suspicion for a pinched nerve in the neck. Patient also presented with a high blood pressure 180/109. Repeated at 150/94. She reports is different than her migraines. Migraines usually a photophobia but she did not have that today. She did have irritation to noise. Also low-grade temp 100.1. Patient did not get a flu shot this year. (Gasper Gann) - Related Data Home Medications Medication Instructions Recorded Confirmed Pravastatin Sodium [Pravachol] 40 mg PO HS 01/24/16 12/30/17 Cyanocobalamin [Vitamin B-12] 2,000 mcg PO HS 01/25/16 12/30/17 Ferrous Sulfate [Iron (65 MG 325 mg PO BID 07/14/16 12/30/17 Elemental)] Rivaroxaban [Xarelto] 20 mg PO HS 03/09/17 12/30/17 tiZANidine [Zanaflex] 8 mg PO HS 03/09/17 12/30/17 Levothyroxine Sodium [Synthroid] 50 mcg PO DAILY 07/29/17 12/30/17 Levothyroxine Sodium [Synthroid] 200 mcg PO DAILY 07/29/17 12/30/17 Metoclopramide [Reglan] 10 mg PO ACHS 07/29/17 12/30/17 Insulin Aspart [NovoLOG Flexpen] See Protocol SQ AC-TID 09/13/17 12/30/17 Topiramate [Topamax] 75 mg PO BID 09/13/17 12/30/17 Ondansetron [Zofran] 8 mg PO Q6HR PRN 09/25/17 12/30/17 Trimethobenzamide HCl [Tigan] 300 mg PO TID PRN 09/25/17 12/30/17 Metoprolol Succinate (ER) [Toprol 100 mg PO DAILY 10/24/17 12/30/17 Xl] Ranitidine HCl 150 mg PO BID 12/17/17 12/30/17 Previous Rx's Medication Instructions Recorded Insulin Glargine [Lantus] 30 unit SQ HS vial 08/05/17 Allergies Allergy/AdvReac Type Severity Reaction Status Date / Time barium sulfate Allergy Anaphylaxis Verified 12/30/17 06:43 diphtheria, pertussis, Allergy Unknown Verified 12/30/17 06:43 tetanus vacc doxepin [Doxepin] Allergy Anaphylaxis Verified 12/30/17 06:43 influenza virus vaccine, Allergy Rash/Hives Verified 12/30/17 06:43 specific [Influenza Virus Vacc,Specific] promethazine HCl Allergy Anaphylaxis Verified 12/30/17 06:43 [From Phenergan] doxycycline AdvReac Nausea & Verified 12/30/17 06:43 Vomiting & Diarrhea Pertussis Vaccines AdvReac fever/seizu Verified 12/30/17 06:43 re pseudoephedrine AdvReac Chest Pain Verified 12/30/17 06:43 pseudoephedrine HCl AdvReac Chest Pain Verified 12/30/17 06:43 [From Sudafed] sulfamethoxazole AdvReac Nausea & Verified 12/30/17 06:43 [From Bactrim] Vomiting trimethoprim [From Bactrim] AdvReac Nausea & Verified 12/30/17 06:43 Vomiting Review of Systems ROS Other: All systems not noted in ROS Statement are negative. <Gasper Gann - Last Filed: 12/21/17 21:05> ROS Other: All systems not noted in ROS Statement are negative. <Marques Diaz - Last Filed: 01/03/18 02:36> ROS Statement: Those systems with pertinent positive or pertinent negative responses have been documented in the HPI. Review of systems. No photophobia that she has a headache on the top of her head. She is a chronically stiff neck for the last several days. No chest pain shortness of breath no GI/ problems. Patient reports for the past week she's had difficulty moving her left arm this being evaluated by her family doctor. All systems reviewed. Past medical problems significant for mono chondral disorder, syncopal episodes in the past hypothyroidism with Ana Maria' s. Disorder non-media. Angina, TIA, DVT on Xarelto. The patient's had a uterine ablation. The patient's family history significant for lupus, heart disease diabetes and hypertension. Patient has ALLERGIES as listed including barium sulfate doxepin, influenza virus vaccine, promethazine, sulfamethoxazole. Nonsmoker nondrinker. (Gasper Gann) Past Medical History Past Medical History: Chest Pain / Angina, CVA/TIA, Deep Vein Thrombosis (DVT), Neurologic Disorder, Syncope, Thyroid Disorder Additional Past Medical History / Comment(s): "Dysautonomia-progressive neurological disorder, lupus/LUPUS ANTICOAGULANTS, ana maria's disease, lymphedema Lt arm, v-tach, pituitary microadenoma. "mitochondrial disease". patent foramen ovale. uti's, falls, orthostatic hypotension/syncope,migraine, polycystic ovarian syndrome,neuropathy. Uterine ablation August 2015. Patient no longer has periods. History of Any Multi-Drug Resistant Organisms: ESBL, MRSA Date of last positivie culture/infection: 03/09/17,09/13/17 ESBL MDRO Source:: LEFT ARM, URINE ECOLI Past Surgical History: Uterine Ablation Additional Past Surgical History / Comment(s): colonscopy/egd, angie, stress test. Past Anesthesia/Blood Transfusion Reactions: No Reported Reaction Additional Past Anesthesia/Blood Transfusion Reaction / Comment(s): patient states "It takes a lot of anesthesia for my body to react" Past Psychological History: Bipolar, Depression Smoking Status: Never smoker Past Alcohol Use History: None Reported Past Drug Use History: None Reported - Past Family History Brother(s) Family Medical History: Diabetes Mellitus, Hyperlipidemia, Hypertension Additional Family Medical History / Comment(s): Patient states she has 1 brother with no major medical problems. Father Family Medical History: Hyperlipidemia, Hypertension Additional Family Medical History / Comment(s): DAD IS 70 YEARS OLD. Patient states she does not have any contact with her father and does not know his medical history. Mother Family Medical History: Chest Pain / Angina, CVA/TIA, Hyperlipidemia, Hypertension Additional Family Medical History / Comment(s): AGE 62 HAS LUPUS, blood pressure swings high to low <Gasper Gann - Last Filed: 12/21/17 21:05> General Exam Limitations: no limitations <Gasper Gann - Last Filed: 12/21/17 21:05> <Marques Diaz - Last Filed: 01/03/18 02:36> - General Exam Comments Initial Comments: General: The patient is awake and alert, does not appear to be in distress but complains of headache to the top of her head. Complains of neck discomfort. Even touching the tissue on the back of her neck causes pain. Vital signs temp 100.1 pulse 92 respiratory rate 18 pulse ox 90% room air blood pressure 1 initially 184/109. Down to 151/94. Eye: Pupils are equal, round and reactive to light, extra-ocular movements are intact ; there is normal conjunctiva bilaterally. No signs of icterus. Ears, nose, mouth and throat: There are moist mucous membranes and no oral lesions. Neck: Discomfort is of neck pain even just a hair touching her neck causes pain. Also complains of dysfunction to the left arm which been ongoing for one week. Currently being evaluated by her family physician. She sees her neurologist for headaches. Patient states with certain headaches she has occasional weakness unilaterally. Cardiovascular: There is a regular rate and rhythm. No murmur, rub or gallop is appreciated. Respiratory: Lungs are clear to auscultation, respirations are non-labored, breath sounds are equal. No wheezes, stridor, rales, or rhonchi. Gastrointestinal: Soft, non-distended, non-tender abdomen without masses or organomegaly noted. There is no rebound or guarding present. No CVA tenderness. Bowel sounds are unremarkable. Back: There is no tenderness to palpation in the midline. There is no obvious deformity. No rashes noted. Musculoskeletal: Decreased movement left arm ongoing for 1 week being evaluated by her family doctor. Neurological: Reports she has mitochondrial disease. Suffers from migraines. Neurologically intact except for the pre-existing left arm weakness which is been ongoing for 1 week. Skin: Skin is warm and dry and no rashes or lesions are noted. (Gasper Gann) Vital Signs 12/21/17 12/21/17 12/21/17 18:22 19:02 21:54 Temperature 100.1 F H Pulse Rate 92 92 80 Respiratory 18 16 18 Rate Blood Pressure 184/109 151/94 155/91 O2 Sat by Pulse 98 98 98 Oximetry 12/21/17 12/21/17 12/22/17 22:07 23:05 00:40 Temperature 98.7 F 99.0 F Pulse Rate 78 84 Respiratory 16 18 18 Rate Blood Pressure 159/85 151/75 O2 Sat by Pulse 98 96 Oximetry Medical Decision Making - Lab Data Result diagrams: 12/21/17 20:45 <Gasper Gann - Last Filed: 12/21/17 21:05> - Lab Data Result diagrams: 12/21/17 20:45 12/21/17 23:00 <Marques Diaz - Last Filed: 01/03/18 02:36> - Medical Decision Making Final disposition will be determined by Dr. Diaz (Gasper Gann) - Lab Data Lab Results 12/21/17 12/21/17 12/21/17 Range/Units 20:45 20:45 20:45 WBC 14.6 H (3.8-10.6) k/uL RBC 4.97 (3.80-5.40) m/uL Hgb 14.0 (11.4-16.0) gm/dL Hct 43.5 (34.0-46.0) % MCV 87.5 (80.0-100.0) fL MCH 28.2 (25.0-35.0) pg MCHC 32.2 (31.0-37.0) g/dL RDW 15.4 (11.5-15.5) % Plt Count 406 (150-450) k/uL Neutrophils % 79 % Lymphocytes % 14 % Monocytes % 5 % Eosinophils % 1 % Basophils % 1 % Neutrophils # 11.5 H (1.3-7.7) k/uL Lymphocytes # 2.0 (1.0-4.8) k/uL Monocytes # 0.7 (0-1.0) k/uL Eosinophils # 0.2 (0-0.7) k/uL Basophils # 0.1 (0-0.2) k/uL Sodium 141 (137-145) mmol/L Potassium 6.0 H (3.5-5.1) mmol/L Chloride 106 (98-107) mmol/L Carbon Dioxide 18 L (22-30) mmol/L Anion Gap 17 mmol/L BUN 13 (7-17) mg/dL Creatinine 0.66 (0.52-1.04) mg/dL Est GFR (MDRD) Af Amer >60 (>60 ml/min/1.73 sqM) Est GFR (MDRD) Non-Af >60 (>60 ml/min/1.73 sqM) Glucose 127 H (74-99) mg/dL Calcium 10.1 (8.4-10.2) mg/dL Total Bilirubin 0.7 (0.2-1.3) mg/dL AST 59 H (14-36) U/L ALT 30 (9-52) U/L Alkaline Phosphatase 125 (38-126) U/L Total Protein 8.4 H (6.3-8.2) g/dL Albumin 5.0 (3.5-5.0) g/dL Influenza Type A RNA Not Detected (Not Detectd) Influenza Type B (PCR) Not Detected (Not Detectd) 12/21/17 Range/Units 23:00 WBC (3.8-10.6) k/uL RBC (3.80-5.40) m/uL Hgb (11.4-16.0) gm/dL Hct (34.0-46.0) % MCV (80.0-100.0) fL MCH (25.0-35.0) pg MCHC (31.0-37.0) g/dL RDW (11.5-15.5) % Plt Count (150-450) k/uL Neutrophils % % Lymphocytes % % Monocytes % % Eosinophils % % Basophils % % Neutrophils # (1.3-7.7) k/uL Lymphocytes # (1.0-4.8) k/uL Monocytes # (0-1.0) k/uL Eosinophils # (0-0.7) k/uL Basophils # (0-0.2) k/uL Sodium 141 (137-145) mmol/L Potassium 4.1 (3.5-5.1) mmol/L Chloride 105 (98-107) mmol/L Carbon Dioxide 20 L (22-30) mmol/L Anion Gap 16 mmol/L BUN 12 (7-17) mg/dL Creatinine 0.64 (0.52-1.04) mg/dL Est GFR (MDRD) Af Amer >60 (>60 ml/min/1.73 sqM) Est GFR (MDRD) Non-Af >60 (>60 ml/min/1.73 sqM) Glucose 128 H (74-99) mg/dL Calcium 10.0 (8.4-10.2) mg/dL Total Bilirubin (0.2-1.3) mg/dL AST (14-36) U/L ALT (9-52) U/L Alkaline Phosphatase (38-126) U/L Total Protein (6.3-8.2) g/dL Albumin (3.5-5.0) g/dL Influenza Type A RNA (Not Detectd) Influenza Type B (PCR) (Not Detectd) Disposition <Gasper Gann - Last Filed: 12/21/17 21:05> <Marques Diaz - Last Filed: 01/03/18 02:36> Clinical Impression: Headache Disposition: HOME SELF-CARE Condition: Good Instructions: Acute Headache (ED) Referrals: Maryellen Joel MD [Primary Care Provider] - 1-2 days Leah Vickers MD [STAFF PHYSICIAN] - 1-2 days
[2017-12-21 21:07] LABS: ALT 30 U/L (9-52); Alkaline Phosphatase 125 U/L (38-126); Anion Gap 17 mmol/L; Blood Urea Nitrogen 13 mg/dL (7-17); Calcium 10.1 mg/dL (8.4-10.2); Carbon Dioxide 18 mmol/L (22-30); Chloride 106 mmol/L (98-107); Glucose 127 mg/dL (74-99); Sodium 141 mmol/L (137-145); Total Bilirubin 0.7 mg/dL (0.2-1.3); Total Protein 8.4 g/dL (6.3-8.2)
[2017-12-21 21:13] LABS: AST 59 U/L (14-36)
[2017-12-21] MEDS ORDERED: HYDROmorphone 2 MG/ML 1 ML SYRINGE IVP STA (22:07)
--- NOTE | 2017-12-21 22:19 | CT ---
EXAMINATION TYPE: CT angio head DATE OF EXAM: 12/21/2017 10:02 PM COMPARISON: NONE HISTORY: Headache and hypertension today. CT DLP: 930.8 mGycm Automated exposure control for dose reduction was used. TECHNIQUE: Performed with IV Contrast, patient injected with 100ml mL of Omnipaque 350. There are 3-D post processed images.. FINDINGS: There is arterial flow in the vertebrobasilar artery system. There is arterial flow in the anterior m iddle and posterior cerebral arteries. The left anterior cerebral artery appears to fill entirely thr ough the anterior communicating artery. There is no evidence of aneurysm or neovascularity. There is no mass effect. There is no sign of stenosis. The basilar artery appears to fill mostly from the righ t vertebral artery. There is a diminutive distal left vertebral artery. The venous sinuses appear nor mal. IMPRESSION: ANTERIOR CEREBRAL ARTERIES APPEAR TO FILL ENTIRELY FROM THE RIGHT SIDE. NO EVIDENCE OF INTRACRANIAL A NEURYSM OR STENOSIS.
--- NOTE | 2017-12-21 22:24 | CT ---
EXAMINATION TYPE: CT brain wo con DATE OF EXAM: 12/21/2017 COMPARISON: 12/17/2017 HISTORY: Headache and hypertension. CT DLP: 1027.8 mGycm. Automated Exposure Control for Dose Reduction was Utilized. TECHNIQUE: CT scan of the head is performed without contrast. FINDINGS: Ventricles and sulci appear normal. There is no mass effect nor midline shift. There is n o sign of intracranial hemorrhage. The calvarium is intact. CONCLUSION: Normal CT scan of the brain. No change.
[2017-12-21 23:06] VITALS: RESP 18
[2017-12-21 23:39] LABS: Anion Gap 16 mmol/L; Blood Urea Nitrogen 12 mg/dL (7-17); Carbon Dioxide 20 mmol/L (22-30); Chloride 105 mmol/L (98-107); Glucose 128 mg/dL (74-99); Potassium 4.1 mmol/L (3.5-5.1); Sodium 141 mmol/L (137-145)
[2017-12-22] MEDS ORDERED: FAMOTIDINE 20 MG TAB PO STA (00:36)
[2017-12-22 00:47] VITALS: BP 151/75; PULSE 84; TEMP 99
== END 2017-12-22 00:40 | disposition home or self-care (01) ==
LOC: EC 17:41
DX: G43.909 Migraine, unspecified, not intractable, without status migrainosus (principal); E06.3 Autoimmune thyroiditis; F31.9 Bipolar disorder, unspecified; Z86.73 Personal history of transient ischemic attack (TIA), and cerebral infarction without residual deficits; Z86.718 Personal history of other venous thrombosis and embolism; Z79.4 Long term (current) use of insulin; Z79.01 Long term (current) use of anticoagulants; Z79.899 Other long term (current) drug therapy; Z88.1 Allergy status to other antibiotic agents; Z88.2 Allergy status to sulfonamides; Z88.7 Allergy status to serum and vaccine; Z88.8 Allergy status to other drugs, medicaments and biological substances
CPT/HCPCS: 36415; 80053; 80048; 85025; 87502; 70496; 70450; 99285; 96374; 96375; 96376; J1170 ×2; Q9967; J2405

== ENCOUNTER 2017-12-29 23:03 | Inpatient (IN) | payer MEDICARE, OTHER ==
[2017-12-30] MEDS ORDERED: ACETAMINOPHEN TAB 500 MG TAB PO STA (00:13)
[2017-12-30] MEDS ORDERED: IBUPROFEN 600 MG TAB PO STA (00:13)
--- NOTE | 2017-12-30 00:32 | ED ---
General Adult HPI - General Source: patient, RN notes reviewed Mode of arrival: wheelchair Limitations: no limitations <Doris Saavedra - Last Filed: 12/30/17 01:30> <Marques Diaz - Last Filed: 12/30/17 21:31> - General Chief complaint: Headache Stated complaint: Headache/Nausea/Vomiting Time Seen by Provider: 12/30/17 00:00 - History of Present Illness Initial comments: 37-year-old female presents to the emergency department with chief complaint of worsening headache. Patient states she's had this headache the past few weeks. Patient states it just seems to getting worse. Patient states she has some pain down the neck. She states she feels some numbness and tingling to the right arm. Patient states she's had nausea with dry heaves. She states low- grade fever today. Patient states that she just is not feeling much better. She followed up with her her family care doctor and she was told to go to the ER if her headache worsens seems to be worsening. Patient states she is not currently having any other symptoms at this time. Patient denies any recent fever, chills, shortness of breath, chest pain, back pain, abdominal pain, nausea vomiting, numbness or tingling, dysuria or hematuria, constipation or diarrhea, visual changes, or any other current symptoms. (Doris Saavedra) - Related Data Home Medications Medication Instructions Recorded Confirmed Pravastatin Sodium [Pravachol] 40 mg PO HS 01/24/16 12/30/17 Cyanocobalamin [Vitamin B-12] 2,000 mcg PO HS 01/25/16 12/30/17 Ferrous Sulfate [Iron (65 MG 325 mg PO BID 07/14/16 12/30/17 Elemental)] Rivaroxaban [Xarelto] 20 mg PO HS 03/09/17 12/30/17 tiZANidine [Zanaflex] 8 mg PO HS 03/09/17 12/30/17 Levothyroxine Sodium [Synthroid] 50 mcg PO DAILY 07/29/17 12/30/17 Levothyroxine Sodium [Synthroid] 200 mcg PO DAILY 07/29/17 12/30/17 Metoclopramide [Reglan] 10 mg PO ACHS 07/29/17 12/30/17 Insulin Aspart [NovoLOG Flexpen] See Protocol SQ AC-TID 09/13/17 12/30/17 Topiramate [Topamax] 75 mg PO BID 09/13/17 12/30/17 Ondansetron [Zofran] 8 mg PO Q6HR PRN 09/25/17 12/30/17 Trimethobenzamide HCl [Tigan] 300 mg PO TID PRN 09/25/17 12/30/17 Metoprolol Succinate (ER) [Toprol 100 mg PO DAILY 10/24/17 12/30/17 Xl] Ranitidine HCl 150 mg PO BID 12/17/17 12/30/17 Previous Rx's Medication Instructions Recorded Insulin Glargine [Lantus] 30 unit SQ HS vial 08/05/17 Allergies Allergy/AdvReac Type Severity Reaction Status Date / Time barium sulfate Allergy Anaphylaxis Verified 12/30/17 06:43 diphtheria, pertussis, Allergy Unknown Verified 12/30/17 06:43 tetanus vacc doxepin [Doxepin] Allergy Anaphylaxis Verified 12/30/17 06:43 influenza virus vaccine, Allergy Rash/Hives Verified 12/30/17 06:43 specific [Influenza Virus Vacc,Specific] promethazine HCl Allergy Anaphylaxis Verified 12/30/17 06:43 [From Phenergan] doxycycline AdvReac Nausea & Verified 12/30/17 06:43 Vomiting & Diarrhea Pertussis Vaccines AdvReac fever/seizu Verified 12/30/17 06:43 re pseudoephedrine AdvReac Chest Pain Verified 12/30/17 06:43 pseudoephedrine HCl AdvReac Chest Pain Verified 12/30/17 06:43 [From Sudafed] sulfamethoxazole AdvReac Nausea & Verified 12/30/17 06:43 [From Bactrim] Vomiting trimethoprim [From Bactrim] AdvReac Nausea & Verified 12/30/17 06:43 Vomiting Review of Systems ROS Other: All systems not noted in ROS Statement are negative. <Doris Saavedra - Last Filed: 12/30/17 01:30> ROS Other: All systems not noted in ROS Statement are negative. <Marques Diaz - Last Filed: 12/30/17 21:31> ROS Statement: Those systems with pertinent positive or pertinent negative responses have been documented in the HPI. Past Medical History Past Medical History: Chest Pain / Angina, CVA/TIA, Deep Vein Thrombosis (DVT), Neurologic Disorder, Syncope, Thyroid Disorder Additional Past Medical History / Comment(s): "Dysautonomia-progressive neurological disorder, lupus/LUPUS ANTICOAGULANTS, ana maria's disease, lymphedema Lt arm, v-tach, pituitary microadenoma. "mitochondrial disease". patent foramen ovale. uti's, falls, orthostatic hypotension/syncope,migraine, polycystic ovarian syndrome,neuropathy. Uterine ablation August 2015. Patient no longer has periods. History of Any Multi-Drug Resistant Organisms: ESBL, MRSA Date of last positivie culture/infection: 03/09/17,09/13/17 ESBL MDRO Source:: LEFT ARM, URINE ECOLI Past Surgical History: Uterine Ablation Additional Past Surgical History / Comment(s): colonscopy/egd, angie, stress test. Past Anesthesia/Blood Transfusion Reactions: No Reported Reaction Additional Past Anesthesia/Blood Transfusion Reaction / Comment(s): patient states "It takes a lot of anesthesia for my body to react" Past Psychological History: Bipolar, Depression Smoking Status: Never smoker Past Alcohol Use History: None Reported Past Drug Use History: None Reported - Past Family History Brother(s) Family Medical History: Diabetes Mellitus, Hyperlipidemia, Hypertension Additional Family Medical History / Comment(s): Patient states she has 1 brother with no major medical problems. Father Family Medical History: Hyperlipidemia, Hypertension Additional Family Medical History / Comment(s): DAD IS 70 YEARS OLD. Patient states she does not have any contact with her father and does not know his medical history. Mother Family Medical History: Chest Pain / Angina, CVA/TIA, Hyperlipidemia, Hypertension Additional Family Medical History / Comment(s): AGE 62 HAS LUPUS, blood pressure swings high to low <Doris Saavedra - Last Filed: 12/30/17 01:30> General Exam Limitations: no limitations General appearance: alert, in no apparent distress Head exam: Present: atraumatic, normocephalic, normal inspection Eye exam: Present: normal appearance, PERRL, EOMI. Absent: scleral icterus, conjunctival injection, periorbital swelling ENT exam: Present: normal exam, mucous membranes moist Neck exam: Present: normal inspection. Absent: tenderness, meningismus, lymphadenopathy Respiratory exam: Present: normal lung sounds bilaterally. Absent: respiratory distress, wheezes, rales, rhonchi, stridor Cardiovascular Exam: Present: regular rate, normal rhythm, normal heart sounds. Absent: systolic murmur, diastolic murmur, rubs, gallop, clicks Extremities exam: Present: normal inspection, full ROM, normal capillary refill. Absent: tenderness, pedal edema, joint swelling, calf tenderness Back exam: Present: normal inspection Neurological exam: Present: alert, oriented X3, CN II-XII intact, reflexes normal. Absent: motor sensory deficit Psychiatric exam: Present: normal affect, normal mood Skin exam: Present: warm, dry, intact, normal color. Absent: rash <Doris Saavedra - Last Filed: 12/30/17 01:30> Vital Signs 12/29/17 12/30/17 12/30/17 23:05 03:57 05:00 Temperature 100.0 F H Pulse Rate 104 H 88 81 Respiratory 20 18 18 Rate Blood Pressure 173/98 148/88 141/86 O2 Sat by Pulse 99 98 96 Oximetry 12/30/17 06:39 Temperature 98.2 F Pulse Rate 84 Respiratory 18 Rate Blood Pressure 145/97 O2 Sat by Pulse 96 Oximetry Medical Decision Making - Radiology Data Radiology results: report reviewed, image reviewed <Doris Saavedra - Last Filed: 12/30/17 01:30> - Lab Data Result diagrams: 12/30/17 01:16 12/30/17 01:16 <Marques Diaz - Last Filed: 12/30/17 21:31> - Medical Decision Making 37 yo female presents for worsening headache. At this time her previous CT anginal was reviewed. At this time we will be admitting the patient. We will order an MRI for the morning. Patient will be admitted to Dr. Marycruz Montenegro consult. Patient is in agreement with this plan. (Doris Saavedra) - Lab Data Lab Results 12/30/17 12/30/17 12/30/17 Range/Units 00:13 01:16 01:16 WBC 12.6 H (3.8-10.6) k/uL RBC 5.09 (3.80-5.40) m/uL Hgb 14.4 (11.4-16.0) gm/dL Hct 46.0 (34.0-46.0) % MCV 90.5 (80.0-100.0) fL MCH 28.3 (25.0-35.0) pg MCHC 31.2 (31.0-37.0) g/dL RDW 14.6 (11.5-15.5) % Plt Count 407 (150-450) k/uL Neutrophils % 68 % Lymphocytes % 22 % Monocytes % 6 % Eosinophils % 2 % Basophils % 1 % Neutrophils # 8.5 H (1.3-7.7) k/uL Lymphocytes # 2.8 (1.0-4.8) k/uL Monocytes # 0.7 (0-1.0) k/uL Eosinophils # 0.2 (0-0.7) k/uL Basophils # 0.1 (0-0.2) k/uL PT (9.0-12.0) sec INR (<1.2) APTT (22.0-30.0) sec Sodium 142 (137-145) mmol/L Potassium 4.4 (3.5-5.1) mmol/L Chloride 105 (98-107) mmol/L Carbon Dioxide 21 L (22-30) mmol/L Anion Gap 16 mmol/L BUN 14 (7-17) mg/dL Creatinine 0.70 (0.52-1.04) mg/dL Est GFR (MDRD) Af Amer >60 (>60 ml/min/1.73 sqM) Est GFR (MDRD) Non-Af >60 (>60 ml/min/1.73 sqM) Glucose 142 H (74-99) mg/dL Calcium 10.3 H (8.4-10.2) mg/dL Total Bilirubin 0.3 (0.2-1.3) mg/dL AST 41 H (14-36) U/L ALT 40 (9-52) U/L Alkaline Phosphatase 120 (38-126) U/L Total Protein 8.4 H (6.3-8.2) g/dL Albumin 5.1 H (3.5-5.0) g/dL Urine Color Urine Appearance (Clear) Urine pH (5.0-8.0) Ur Specific [place] (1.001-1.035) Urine Protein (Negative) Urine Glucose (UA) (Negative) Urine Ketones (Negative) Urine Blood (Negative) Urine Nitrite (Negative) Urine Bilirubin (Negative) Urine Urobilinogen (<2.0) mg/dL Ur Leukocyte Esterase (Negative) Urine RBC (0-5) /hpf Urine WBC (0-5) /hpf Urine WBC Clumps (None) /hpf Ur Squamous Epith Cells (0-4) /hpf Urine Bacteria (None) /hpf Hyaline Casts (0-2) /lpf Urine Mucus (None) /hpf Influenza Type A RNA Not Detected (Not Detectd) Influenza Type B (PCR) Not Detected (Not Detectd) 12/30/17 12/30/17 Range/Units 01:16 01:16 WBC (3.8-10.6) k/uL RBC (3.80-5.40) m/uL Hgb (11.4-16.0) gm/dL Hct (34.0-46.0) % MCV (80.0-100.0) fL MCH (25.0-35.0) pg MCHC (31.0-37.0) g/dL RDW (11.5-15.5) % Plt Count (150-450) k/uL Neutrophils % % Lymphocytes % % Monocytes % % Eosinophils % % Basophils % % Neutrophils # (1.3-7.7) k/uL Lymphocytes # (1.0-4.8) k/uL Monocytes # (0-1.0) k/uL Eosinophils # (0-0.7) k/uL Basophils # (0-0.2) k/uL PT 10.5 (9.0-12.0) sec INR 1.1 (<1.2) APTT 29.3 (22.0-30.0) sec Sodium (137-145) mmol/L Potassium (3.5-5.1) mmol/L Chloride (98-107) mmol/L Carbon Dioxide (22-30) mmol/L Anion Gap mmol/L BUN (7-17) mg/dL Creatinine (0.52-1.04) mg/dL Est GFR (MDRD) Af Amer (>60 ml/min/1.73 sqM) Est GFR (MDRD) Non-Af (>60 ml/min/1.73 sqM) Glucose (74-99) mg/dL Calcium (8.4-10.2) mg/dL Total Bilirubin (0.2-1.3) mg/dL AST (14-36) U/L ALT (9-52) U/L Alkaline Phosphatase (38-126) U/L Total Protein (6.3-8.2) g/dL Albumin (3.5-5.0) g/dL Urine Color Yellow Urine Appearance Cloudy H (Clear) Urine pH 6.0 (5.0-8.0) Ur Specific [place] 1.020 (1.001-1.035) Urine Protein Trace H (Negative) Urine Glucose (UA) Negative (Negative) Urine Ketones Negative (Negative) Urine Blood Negative (Negative) Urine Nitrite Negative (Negative) Urine Bilirubin Negative (Negative) Urine Urobilinogen <2.0 (<2.0) mg/dL Ur Leukocyte Esterase Trace H (Negative) Urine RBC 1 (0-5) /hpf Urine WBC 9 H (0-5) /hpf Urine WBC Clumps Rare H (None) /hpf Ur Squamous Epith Cells 6 H (0-4) /hpf Urine Bacteria Rare H (None) /hpf Hyaline Casts 1 (0-2) /lpf Urine Mucus Rare H (None) /hpf Influenza Type A RNA (Not Detectd) Influenza Type B (PCR) (Not Detectd) - Radiology Data Interpreted by me: from previous visit (Doris Saavedra) Disposition Decision Date: 12/30/17 Decision Time: 01:34 <Doris Saavedra - Last Filed: 12/30/17 01:30> <Marques Diaz - Last Filed: 12/30/17 21:31> Clinical Impression: Headache, Nausea Disposition: ADMITTED IP TO THIS HOSP Condition: Stable
[2017-12-30] MEDS ORDERED: ONDANSETRON 4 MG/2 ML VIAL IVP STA (00:52)
[2017-12-30] MEDS ORDERED: SODIUM CHLORIDE 0.9% 1,000 ML IV STA (00:52)
[2017-12-30] MEDS: HYDROmorphone 0.5 MG/0.5 ML SYRINGE IVP STA ×2 (01:26→01:40)
[2017-12-30 01:30] LABS: Basophils # (A) 0.1 k/uL (0-0.2); Basophils % (A) 1 %; Eosinophils # (A) 0.2 k/uL (0-0.7); Eosinophils % (A) 2 %; HGB 14.4 gm/dL (11.4-16.0); Lymphocytes # (A) 2.8 k/uL (1.0-4.8); Lymphocytes % (A) 22 %; MCH 28.3 pg (25.0-35.0); MCHC 31.2 g/dL (31.0-37.0); MCV 90.5 fL (80.0-100.0); Mean Platelet Volume 6.8; Monocytes # (A) 0.7 k/uL (0-1.0); Monocytes % (A) 6 %; Neutrophils # (A) 8.5 k/uL (1.3-7.7); Neutrophils % (A) 68 %; Platelet Count 407 k/uL (150-450); RBC 5.09 m/uL (3.80-5.40); RDW 14.6 % (11.5-15.5); WBC 12.6 k/uL (3.8-10.6)
[2017-12-30] MEDS ORDERED: NALOXONE 0.4 MG/ML 1 ML VIAL IV PRN (01:34)
[2017-12-30 01:40] LABS: ALT 40 U/L (9-52); AST 41 U/L (14-36); Albumin 5.1 g/dL (3.5-5.0); Alkaline Phosphatase 120 U/L (38-126); Anion Gap 16 mmol/L; Blood Urea Nitrogen 14 mg/dL (7-17); Calcium 10.3 mg/dL (8.4-10.2); Carbon Dioxide 21 mmol/L (22-30); Chloride 105 mmol/L (98-107); Glucose 142 mg/dL (74-99); Potassium 4.4 mmol/L (3.5-5.1); Sodium 142 mmol/L (137-145); Total Bilirubin 0.3 mg/dL (0.2-1.3); Total Protein 8.4 g/dL (6.3-8.2)
[2017-12-30 02:01] LABS: Appearance,Urine Cloudy (Clear); Bacteria,Urine Rare /hpf; Bilirubin,Urine Negative (Negative); Blood,Urine Negative (Negative); Color,Urine Yellow; Glucose,Urine (UA) Negative (Negative); Hyaline Casts,Urine 1 /lpf (0-2); Ketones,Urine Negative (Negative); Leukocyte Esterase,Urine Trace (Negative); Mucus,Urine Rare /hpf; Nitrite,Urine Negative (Negative); Protein,Urine Trace (Negative); RBC,Urine 1 /hpf (0-5); Squamous Epithelial Cell,Urine 6 /hpf (0-4); Urobilinogen,Urine <2.0 mg/dL (<2.0); WBC,Urine 9 /hpf (0-5)
[2017-12-30 02:40] LABS: INR 1.1 (<1.2); Partial Thromboplastin Time 29.3 sec (22.0-30.0); Prothrombin Time 10.5 sec (9.0-12.0)
[2017-12-30] MEDS ORDERED: PHENAZOPYRIDINE 200 MG TAB PO STA (04:08)
[2017-12-30] MEDS: SODIUM CHLORIDE 0.9% 1,000 ML IV SCH ×3 (04:32→14:28)
[2017-12-30] MEDS: HYDROmorphone 0.5 MG/0.5 ML SYRINGE IVP PRN ×3 (05:32→12:31)
[2017-12-30] MEDS: ONDANSETRON 4 MG/2 ML VIAL IVP PRN ×2 (12:34→17:52)
[2017-12-30 12:44] LABS: Glucose,Whole Blood 130 mg/dL (75-99)
[2017-12-30] MEDS ORDERED: TRIMETHOBENZAMIDE 300 MG CAP PO PRN (13:27)
--- NOTE | 2017-12-30 13:27 | P.HPIM ---
History of Present Illness H&P Date: 12/30/17 Chief Complaint: severe headache patient is a 37-year-old female who presented to [facility] emergency room with a chief complaint of severe headache she was evaluated in the emergency room she had low-grade fever, and due to the severity of her headache and to her abnormal previous testing decision was made to proceed with admitting her to medical floor for further evaluation and treatment. Patient initially started having headaches about 10 days ago, prior to that she only had episodes of migraine headache, however 10 days ago she started having different kind of headache that was constant and severe, she presented to emergency room at that time and had a CT angiogram of her head which revealed anterior cerebral arteries appear to feel entirely from the right side without any evidence of intracranial aneurysm or stenosis, at that time she was discharged home, she presented to our office as a new patient, arrangement where made for her for follow-up MRI and neurology appointment however she presented again to emergency room with worsening severe headache prior to having any chance to have any testing as outpatient and decision was made to proceed with admission and inpatient testing and neurology consultation. On presentation patient had low-grade fever of 100, white blood count was slightly elevated at 12.5, due to the severe headache and low-grade fever patient was started on Rocephin 1 g IV every 24 hours and consultation for infectious disease was initiated. Past Medical History Past Medical History: Chest Pain / Angina, CVA/TIA, Diabetes Mellitus, Deep Vein Thrombosis (DVT), Neurologic Disorder, Syncope, Thyroid Disorder Additional Past Medical History / Comment(s): Dysautonomia-progressive neurological disorder, lupus/LUPUS ANTICOAGULANTS, 2004 CVA without residual, ana maria's disease, lymphedema Lt arm d/t DVTs (currently has DVT), v-tach, pituitary microadenoma. "mitochondrial disease". patent foramen ovale, narcolepsy, gastropareis, IDDM type II, uti's, falls, orthostatic hypotension/ syncope,migraines with hemiplegia, pernicious anemia, polycystic ovarian syndrome, neuropathy bilateral legs/fee-mild, uterine ablation August 2015/ patient no longer has periods. History of Any Multi-Drug Resistant Organisms: ESBL, MRSA Date of last positivie culture/infection: 03/09/17,09/13/17 ESBL MDRO Source:: LEFT ARM, URINE ECOLI Past Surgical History: Uterine Ablation Additional Past Surgical History / Comment(s): colonscopy/egd, angie, stress test. Past Anesthesia/Blood Transfusion Reactions: No Reported Reaction Additional Past Anesthesia/Blood Transfusion Reaction / Comment(s): patient states "It takes a lot of anesthesia for my body to react". Pt has received blood in past without reaction. Smoking Status: Never smoker - Past Family History Brother(s) Family Medical History: Diabetes Mellitus, Hyperlipidemia, Hypertension Additional Family Medical History / Comment(s): Patient states she has 1 brother with no major medical problems. Father Family Medical History: Hyperlipidemia, Hypertension Additional Family Medical History / Comment(s): DAD IS 70 YEARS OLD. Patient states she does not have any contact with her father and does not know his medical history. Mother Family Medical History: Chest Pain / Angina, CVA/TIA, Hyperlipidemia, Hypertension Additional Family Medical History / Comment(s): AGE 62 HAS LUPUS, blood pressure swings high to low Medications and Allergies Home Medications Medication Instructions Recorded Confirmed Type Pravastatin Sodium [Pravachol] 40 mg PO HS 01/24/16 12/30/17 History Cyanocobalamin [Vitamin B-12] 2,000 mcg PO HS 01/25/16 12/30/17 History Ferrous Sulfate [Iron (65 MG 325 mg PO BID 07/14/16 12/30/17 History Elemental)] Rivaroxaban [Xarelto] 20 mg PO HS 03/09/17 12/30/17 History tiZANidine [Zanaflex] 8 mg PO HS 03/09/17 12/30/17 History Levothyroxine Sodium [Synthroid] 50 mcg PO DAILY 07/29/17 12/30/17 History Levothyroxine Sodium [Synthroid] 200 mcg PO DAILY 07/29/17 12/30/17 History Metoclopramide [Reglan] 10 mg PO ACHS 07/29/17 12/30/17 History Insulin Glargine [Lantus] 30 unit SQ HS vial 08/05/17 12/30/17 Rx Insulin Aspart [NovoLOG Flexpen] See Protocol SQ AC-TID 09/13/17 12/30/17 History Topiramate [Topamax] 75 mg PO BID 09/13/17 12/30/17 History Ondansetron [Zofran] 8 mg PO Q6HR PRN 09/25/17 12/30/17 History Trimethobenzamide HCl [Tigan] 300 mg PO TID PRN 09/25/17 12/30/17 History Metoprolol Succinate (ER) [Toprol 100 mg PO DAILY 10/24/17 12/30/17 History Xl] Ranitidine HCl 150 mg PO BID 12/17/17 12/30/17 History Allergies Allergy/AdvReac Type Severity Reaction Status Date / Time barium sulfate Allergy Anaphylaxis Verified 12/30/17 06:43 diphtheria, pertussis, Allergy Unknown Verified 12/30/17 06:43 tetanus vacc doxepin [Doxepin] Allergy Anaphylaxis Verified 12/30/17 06:43 influenza virus vaccine, Allergy Rash/Hives Verified 12/30/17 06:43 specific [Influenza Virus Vacc,Specific] promethazine HCl Allergy Anaphylaxis Verified 12/30/17 06:43 [From Phenergan] doxycycline AdvReac Nausea & Verified 12/30/17 06:43 Vomiting & Diarrhea Pertussis Vaccines AdvReac fever/seizu Verified 12/30/17 06:43 re pseudoephedrine AdvReac Chest Pain Verified 12/30/17 06:43 pseudoephedrine HCl AdvReac Chest Pain Verified 12/30/17 06:43 [From Sudafed] sulfamethoxazole AdvReac Nausea & Verified 12/30/17 06:43 [From Bactrim] Vomiting trimethoprim [From Bactrim] AdvReac Nausea & Verified 12/30/17 06:43 Vomiting Physical Exam Vitals: Vital Signs Temp Pulse Pulse Resp BP BP Pulse Ox 12/30/17 08:05 97.2 F L 84 16 138/94 96 12/30/17 06:39 98.2 F 84 18 145/97 96 12/30/17 05:00 81 18 141/86 96 12/30/17 03:57 88 18 148/88 98 12/29/17 23:05 100.0 F H 104 H 20 173/98 99 Intake and Output 12/29/17 12/30/17 12/30/17 22:59 06:59 14:59 Other: Voiding Method Toilet Weight 108.862 kg in general patient is alert and oriented 3 in no apparent distress HEENT head normocephalic and atraumatic Neck is supple no JVD no goiter no lymphadenopathy Chest exam reveals a few scattered crackles bilaterally no wheezing Cardiac exam reveals regular heart sounds S1 and S2 no gallops no murmurs Abdomen is soft nontender no organomegaly with normal bowel sounds Extremity exam reveals minimal edema neurological examination reveals no gross focal deficits cranial nerve II-12 are intact speech is fluent Gait was not tested but patient reports that she was walking fine no focal motor or sensory deficit. Results CBC & Chem 7: 12/30/17 01:16 12/30/17 01:16 Labs: Abnormal Lab Results - Last 24 Hours (Table) 12/30/17 12/30/17 12/30/17 Range/Units 01:16 01:16 01:16 WBC 12.6 H (3.8-10.6) k/uL Neutrophils # 8.5 H (1.3-7.7) k/uL Carbon Dioxide 21 L (22-30) mmol/L Glucose 142 H (74-99) mg/dL POC Glucose (mg/dL) (75-99) mg/dL Calcium 10.3 H (8.4-10.2) mg/dL AST 41 H (14-36) U/L Total Protein 8.4 H (6.3-8.2) g/dL Albumin 5.1 H (3.5-5.0) g/dL Urine Appearance Cloudy H (Clear) Urine Protein Trace H (Negative) Ur Leukocyte Esterase Trace H (Negative) Urine WBC 9 H (0-5) /hpf Urine WBC Clumps Rare H (None) /hpf Ur Squamous Epith Cells 6 H (0-4) /hpf Urine Bacteria Rare H (None) /hpf Urine Mucus Rare H (None) /hpf 12/30/17 Range/Units 12:41 WBC (3.8-10.6) k/uL Neutrophils # (1.3-7.7) k/uL Carbon Dioxide (22-30) mmol/L Glucose (74-99) mg/dL POC Glucose (mg/dL) 130 H (75-99) mg/dL Calcium (8.4-10.2) mg/dL AST (14-36) U/L Total Protein (6.3-8.2) g/dL Albumin (3.5-5.0) g/dL Urine Appearance (Clear) Urine Protein (Negative) Ur Leukocyte Esterase (Negative) Urine WBC (0-5) /hpf Urine WBC Clumps (None) /hpf Ur Squamous Epith Cells (0-4) /hpf Urine Bacteria (None) /hpf Urine Mucus (None) /hpf Microbiology - Last 24 Hours (Table) 12/30/17 01:16 Urine Culture - Preliminary Urine,Clean Catch Thrombosis Risk Factor Assmnt - Choose All That Apply Any of the Below Risk Factors Present?: Yes Each Factor Represents 1 point: Obesity (BMI >25) Other Risk Factors: Yes Each Risk Factor Represents 3 Points: History of DVT/PE Other congenital or acquired thrombophilia - If yes, enter type in comment: No Thrombosis Risk Factor Assessment Total Risk Factor Score: 4 Thrombosis Risk Factor Assessment Level: Moderate Risk Assessment and Plan Plan: #1 severe headache #[address] angiogram of the brain #3 extensive past medical history including, positive lupus anticoagulant patient is maintained on Xarelto #4 low-grade fever on presentation Continue was current medication at this time Start Rocephin 1 g IV every 24 hours prophylactically Awaiting MRI of the brain Awaiting input of neurology and infectious disease
[2017-12-30] MEDS: cefTRIAXone IN SWFI 1,000 MG/10 ML SYRINGE IVP SCH (14:28)
[2017-12-30] MEDS: LEVOTHYROXINE 100 MCG TAB PO SCH (14:34)
[2017-12-30] MEDS: LEVOTHYROXINE 50 MCG TAB PO SCH (14:34)
[2017-12-30] MEDS: TOPIRAMATE 25 MG TAB PO SCH ×2 (14:34→22:22)
[2017-12-30] MEDS: FAMOTIDINE 20 MG TAB PO SCH ×2 (14:34→22:19)
[2017-12-30] MEDS: METOPROLOL SUCCINATE (ER) 100 MG TAB.ER.24H PO SCH (14:34)
[2017-12-30] MEDS: FERROUS SULFATE 325 MG TAB PO SCH ×2 (14:34→22:19)
[2017-12-30 17:18] LABS: Glucose,Whole Blood 181 mg/dL (75-99)
[2017-12-30] MEDS: METOCLOPRAMIDE 10 MG TAB PO SCH ×2 (17:50→22:20)
[2017-12-30] MEDS: INSULIN ASPART 100 UNIT/ML 1 ML 10 ML VIAL SQ SCH ×2 (17:50→22:20)
--- NOTE | 2017-12-30 19:13 | P.CNNES ---
History of Present Illness Consult date: 12/30/17 Reason for Consult: Patient admitted with headache and right arm numbness. History of Present Illness: This patient is a 37-year-old right-handed white female who was admitted to [facility] with symptoms of headache for the past 10 days. She was noted to have a low-grade temperature in the emergency room. He was noted to be 100. She was complaining of bilateral headache symptoms. She had recently been seen in the emergency room on 12/21/2017 and was given some pain medications at discharge. She had undergone a CTA angiogram at that time which revealed anterior cerebral arteries filling entirely from the right side. No evidence of intracranial aneurysm or stenosis was noted. Due to the finding on the CT angiogram in her return to the emergency room with headaches we have recommended a MRI and MRA of the brain to be done for further evaluation. Patient was placed on IV Rocephin for treatment of the mild fever. She is currently afebrile. She does not have signs of neck pain nor meningeal irritation. Kernig's and Brudzinski signs are negative. The patient has a complex past medical history which includes lupus anticoagulant syndrome, mitochondrial disorder, dystonia, autonomic disorder, and hemiplegic migraines in the past. Patient is currently on Xarelto for treatment of the coagulopathy disorder. She did have evidence of a recent blood clot in her left arm which occurred on 12/17/2017. The patient states that her headaches have been mostly confined to the bifrontal area of the head. She describes it more of a pressure headache. The headaches are the same as they were back in November when she was seen in the ER. Due to the recurrent headaches we have recommended further evaluation with MRI MRA of the brain. Patient is to continue on all of her current medications. Would recommend keep her on Rocephin until she is seen by infectious disease. She does complain of right arm numbness which seems to be present for the past 10 days. Once again we're waiting MRI MRA of the brain at which time we will give further recommendations. The patient is now been admitted for further assessment. Neurology is consulted for further evaluation and recommendations. Review of Systems Constitutional: Denies chills, Denies fever Eyes: denies blurred vision, denies pain Ears, nose, mouth and throat: Denies headache, Denies sore throat Cardiovascular: Denies chest pain, Denies shortness of breath Respiratory: Denies cough Gastrointestinal: Denies abdominal pain, Denies diarrhea, Denies nausea, Denies vomiting Genitourinary: Denies dysuria, Denies hematuria Musculoskeletal: Denies myalgias Integumentary: Denies pruritus, Denies rash Neurological: Reports headaches, Reports migraines, Reports paresthesias, Denies numbness, Denies weakness Psychiatric: Denies anxiety, Denies depression Endocrine: Denies fatigue, Denies weight change Past Medical History Past Medical History: Chest Pain / Angina, CVA/TIA, Diabetes Mellitus, Deep Vein Thrombosis (DVT), Neurologic Disorder, Syncope, Thyroid Disorder Additional Past Medical History / Comment(s): Dysautonomia-progressive neurological disorder, lupus/LUPUS ANTICOAGULANTS, 2004 CVA without residual, ana maria's disease, lymphedema Lt arm d/t DVTs (currently has DVT), v-tach, pituitary microadenoma. "mitochondrial disease". patent foramen ovale, narcolepsy, gastropareis, IDDM type II, uti's, falls, orthostatic hypotension/ syncope,migraines with hemiplegia, pernicious anemia, polycystic ovarian syndrome, neuropathy bilateral legs/fee-mild, uterine ablation August 2015/ patient no longer has periods. History of Any Multi-Drug Resistant Organisms: ESBL, MRSA Date of last positivie culture/infection: 03/09/17,09/13/17 ESBL MDRO Source:: LEFT ARM, URINE ECOLI Past Surgical History: Uterine Ablation Additional Past Surgical History / Comment(s): colonscopy/egd, angie, stress test. Past Anesthesia/Blood Transfusion Reactions: No Reported Reaction Additional Past Anesthesia/Blood Transfusion Reaction / Comment(s): patient states "It takes a lot of anesthesia for my body to react". Pt has received blood in past without reaction. Smoking Status: Never smoker - Past Family History Brother(s) Family Medical History: Diabetes Mellitus, Hyperlipidemia, Hypertension Additional Family Medical History / Comment(s): Patient states she has 1 brother with no major medical problems. Father Family Medical History: Hyperlipidemia, Hypertension Additional Family Medical History / Comment(s): DAD IS 70 YEARS OLD. Patient states she does not have any contact with her father and does not know his medical history. Mother Family Medical History: Chest Pain / Angina, CVA/TIA, Hyperlipidemia, Hypertension Additional Family Medical History / Comment(s): AGE 62 HAS LUPUS, blood pressure swings high to low Medications and Allergies Home Medications Medication Instructions Recorded Confirmed Type Pravastatin Sodium [Pravachol] 40 mg PO HS 01/24/16 12/30/17 History Cyanocobalamin [Vitamin B-12] 2,000 mcg PO HS 01/25/16 12/30/17 History Ferrous Sulfate [Iron (65 MG 325 mg PO BID 07/14/16 12/30/17 History Elemental)] Rivaroxaban [Xarelto] 20 mg PO HS 03/09/17 12/30/17 History tiZANidine [Zanaflex] 8 mg PO HS 03/09/17 12/30/17 History Levothyroxine Sodium [Synthroid] 50 mcg PO DAILY 07/29/17 12/30/17 History Levothyroxine Sodium [Synthroid] 200 mcg PO DAILY 07/29/17 12/30/17 History Metoclopramide [Reglan] 10 mg PO ACHS 07/29/17 12/30/17 History Insulin Glargine [Lantus] 30 unit SQ HS vial 08/05/17 12/30/17 Rx Insulin Aspart [NovoLOG Flexpen] See Protocol SQ AC-TID 09/13/17 12/30/17 History Topiramate [Topamax] 75 mg PO BID 09/13/17 12/30/17 History Ondansetron [Zofran] 8 mg PO Q6HR PRN 09/25/17 12/30/17 History Trimethobenzamide HCl [Tigan] 300 mg PO TID PRN 09/25/17 12/30/17 History Metoprolol Succinate (ER) [Toprol 100 mg PO DAILY 10/24/17 12/30/17 History Xl] Ranitidine HCl 150 mg PO BID 12/17/17 12/30/17 History Allergies Allergy/AdvReac Type Severity Reaction Status Date / Time barium sulfate Allergy Anaphylaxis Verified 12/30/17 06:43 diphtheria, pertussis, Allergy Unknown Verified 12/30/17 06:43 tetanus vacc doxepin [Doxepin] Allergy Anaphylaxis Verified 12/30/17 06:43 influenza virus vaccine, Allergy Rash/Hives Verified 12/30/17 06:43 specific [Influenza Virus Vacc,Specific] promethazine HCl Allergy Anaphylaxis Verified 12/30/17 06:43 [From Phenergan] doxycycline AdvReac Nausea & Verified 12/30/17 06:43 Vomiting & Diarrhea Pertussis Vaccines AdvReac fever/seizu Verified 12/30/17 06:43 re pseudoephedrine AdvReac Chest Pain Verified 12/30/17 06:43 pseudoephedrine HCl AdvReac Chest Pain Verified 12/30/17 06:43 [From Sudafed] sulfamethoxazole AdvReac Nausea & Verified 12/30/17 06:43 [From Bactrim] Vomiting trimethoprim [From Bactrim] AdvReac Nausea & Verified 12/30/17 06:43 Vomiting Physical Examination - Vital Signs Vital Signs: Vital Signs Temp Pulse Pulse Resp BP BP Pulse Ox 12/30/17 15:00 97.2 F L 90 16 129/88 98 12/30/17 08:05 97.2 F L 84 16 138/94 96 12/30/17 06:39 98.2 F 84 18 145/97 96 12/30/17 05:00 81 18 141/86 96 12/30/17 03:57 88 18 148/88 98 12/29/17 23:05 100.0 F H 104 H 20 173/98 99 Intake and Output 12/30/17 12/30/17 12/30/17 06:59 14:59 22:59 Intake Total 500 Balance 500 Intake: Oral 500 Other: Voiding Method Toilet Toilet Weight 108.862 kg - Constitutional General appearance: average body habitus, cooperative - EENT EENT: PERRL, mucous membranes moist - Respiratory Respiratory: lungs clear, normal breath sounds - Cardiovascular Cardiovascular: regular rate, normal S1, normal S2 Extremities: no peripheral edema bilaterally - Gastrointestinal Gastrointestinal: normoactive bowel sounds - Integumentary Integumentary: normal - Neurologic Cranial nerve examination: PERRL, EOMI, VFF, V1/V2/V3 grossly intact, face symmetric, tongue midline, intact gag reflex, intact corneal reflex, normal palatal elevation Speech examination: intact Sensorimotor examination: intact Motor examination - right side: 4/5: biceps, triceps, wrist flexion, wrist extension, retail maintenance technician, hip flexors, knee extensors, dorsiflexion, toe extension (EHL) , plantarflexion Motor examination - left side: 4/5: biceps, triceps, wrist flexion, wrist extension, retail maintenance technician, hip flexors, knee extensors, dorsiflexion, toe extension (EHL) , plantarflexion Detailed sensory examination: intact Reflex and gait examination: intact Reflexes: 1+: ankle, bicep, knee, tricep - Musculoskeletal Musculoskeletal: no pain - Psychiatric Psychiatric: mood/affect appropriate, cooperative Results - Laboratory Findings CBC and BMP: 12/30/17 01:16 12/30/17 01:16 Abnormal Lab Findings: Abnormal Labs 12/30/17 12/30/17 12/30/17 01:16 01:16 01:16 WBC 12.6 H Neutrophils # 8.5 H Carbon Dioxide 21 L Glucose 142 H POC Glucose (mg/dL) Calcium 10.3 H AST 41 H Total Protein 8.4 H Albumin 5.1 H Urine Appearance Cloudy H Urine Protein Trace H Ur Leukocyte Esterase Trace H Urine WBC 9 H Urine WBC Clumps Rare H Ur Squamous Epith Cells 6 H Urine Bacteria Rare H Urine Mucus Rare H 12/30/17 12/30/17 12:41 17:16 WBC Neutrophils # Carbon Dioxide Glucose POC Glucose (mg/dL) 130 H 181 H Calcium AST Total Protein Albumin Urine Appearance Urine Protein Ur Leukocyte Esterase Urine WBC Urine WBC Clumps Ur Squamous Epith Cells Urine Bacteria Urine Mucus Assessment and Plan (1) Headache Current Visit: Yes Status: Acute Code(s): R51 - HEADACHE SNOMED Code(s): 48058894 (2) Lupus anticoagulant disorder Current Visit: Yes Status: Acute Code(s): D68.62 - LUPUS ANTICOAGULANT SYNDROME SNOMED Code(s): 30581388 (3) Hypercoagulable state Current Visit: No Status: Chronic Code(s): D68.59 - OTHER PRIMARY THROMBOPHILIA SNOMED Code(s): 81316047 (4) Mitochondrial DNA depletion syndrome Current Visit: No Status: Chronic Code(s): E88.49 - OTHER MITOCHONDRIAL METABOLISM DISORDERS SNOMED Code(s): 196408296 Plan: This patient is a 37-year-old female admitted with acute onset of headaches. She was seen in the emergency room on 12/21/2017 at which time she underwent a CTA angiogram of the head. Results are as noted above. There was some finding of anterior cerebral arteries receiving entire filling from the right side. There was no evidence of intracranial aneurysm or stenosis. Due to the abnormality on the CTA we are recommending a MRI and MRA [place] to be done for further assessment. Patient is also complaining of right arm numbness. We will await the results of her MRI. Patient has been started on Rocephin for treatment of mild infection. She is afebrile at this time. She has no signs of meningeal irritation. We will await the results of her neuroimaging studies including MRI MRA and we'll give further recommendations. May consider use of Firocet for headache management but would wait until we have the results of her MRA. Infectious disease has been consulted and we will await their recommendations. Her overall prognosis at this time remains very guarded. Time with Patient: Greater than 30
[2017-12-30 20:14] LABS: Hemoglobin A1C 6.8 % (4.0-6.0)
[2017-12-30 20:22] LABS: Glucose,Whole Blood 158 mg/dL (75-99)
[2017-12-30] MEDS: HYDROmorphone 2 MG TAB PO PRN (20:22)
--- NOTE | 2017-12-30 22:10 | P.CONS ---
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 She has a lupus-like syndrome. And has progressive dysautonomia which is directly affecting her ability to ambulate. She also has a history of hemiplegic migraines but current headace is very different than her hemiplegic migraines. It is bifrontal and associated with pressure and feels quite poorly. She did have a headache somewhat similar earlier this year. He has noted she's had difficulty with the deep venous thrombosis the left arm and is being treated with Xarelto. Is the patient has a very complex past medical history. Because of her current symptoms computed tomography scan was performed that shows evidence of the abnormality in that the right vertebral artery is dominant in the left vertebral artery is very small in size. Patient does have a prior CT angiogram which did not reveal aneurysm. Patient states fever at home but not documented here so far. Complains of some discomfort in her neck but it is not stiff. Does complain of some photophobia, but has no difficulty with sound was listening to music with headphones. Review of Systems HEENT: Complains of significant headache as per the HPI. Has no visual changes. Denies sinus or mouth discomforts. Denies neck stiffness or pain. Denies significant oral cavity pain. Denies difficulty on swallowing. Lungs: Denies significant shortness of breath, cough, sputum production, or hemoptysis. Cardiovascular: Denies significant shortness of breath, chest pain, chest wall pain, orthopnea, dyspnea on exertion, syncope Gastrointestinal:Denies nausea, vomiting, diarrhea, constipation, hematemesis, melena, hematochezia. No no significant change of bowel habit noticed. Musculoskeletal: denies significant myalgias or arthralgias. No new joint swelling. Denies new back pain. Skin: Denies new rash or lesions. No new ulcers or wounds are related.. Neuro: Denies any new onset weakness or difficulty with ambulation. Denies falls or seizures. Psychiatric: Chronic anxiety and depression, does have a history of psychiatric hospitalization Endocrine: He has severe chronic fatigue related to her underlying genetic disorder and has weight gain. Past Medical History Past Medical History: Chest Pain / Angina, CVA/TIA, Diabetes Mellitus, Deep Vein Thrombosis (DVT), Neurologic Disorder, Syncope, Thyroid Disorder Additional Past Medical History / Comment(s): Dysautonomia-progressive neurological disorder, lupus/LUPUS ANTICOAGULANTS, 2004 CVA without residual, ana maria's disease, lymphedema Lt arm d/t DVTs (currently has DVT), v-tach, pituitary microadenoma. "mitochondrial disease". patent foramen ovale, narcolepsy, gastropareis, IDDM type II, uti's, falls, orthostatic hypotension/ syncope,migraines with hemiplegia, pernicious anemia, polycystic ovarian syndrome, neuropathy bilateral legs/fee-mild, uterine ablation August 2015/ patient no longer has periods. History of Any Multi-Drug Resistant Organisms: ESBL, MRSA Year Discovered:: 03/09/17,09/13/17 ESBL MDRO Source:: LEFT ARM, URINE ECOLI Past Surgical History: Uterine Ablation Additional Past Surgical History / Comment(s): colonscopy/egd, angie, stress test. Past Anesthesia/Blood Transfusion Reactions: No Reported Reaction Additional Past Anesthesia/Blood Transfusion Reaction / Comm: patient states " It takes a lot of anesthesia for my body to react". Pt has received blood in past without reaction. Smoking Status: Never smoker - Past Family History Brother(s) Family Medical History: Diabetes Mellitus, Hyperlipidemia, Hypertension Additional Family Medical History / Comment(s): Patient states she has 1 brother with no major medical problems. Father Family Medical History: Hyperlipidemia, Hypertension Additional Family Medical History / Comment(s): DAD IS 70 YEARS OLD. Patient states she does not have any contact with her father and does not know his medical history. Mother Family Medical History: Chest Pain / Angina, CVA/TIA, Hyperlipidemia, Hypertension Additional Family Medical History / Comment(s): AGE 62 HAS LUPUS, blood pressure swings high to low Medications and Allergies Home Medications and Allergies Comment(s): Current Medications Ceftriaxone Sodium (Rocephin) 1,000 mg IVP Q24HR [facility] Last Admin: 12/30/17 14:28 Dose: 1,000 mg Cyanocobalamin (Vitamin B-12) 2,000 mcg PO HS [facility] Famotidine (Pepcid) 20 mg PO BID [facility] Last Admin: 12/30/17 14:34 Dose: Not Given Ferrous Sulfate (Feosol) 325 mg PO BID [facility] Last Admin: 12/30/17 14:34 Dose: Not Given Hydromorphone HCl (Dilaudid) 2 mg PO Q3HR PRN PRN Reason: Moderate Pain Last Admin: 12/30/17 20:22 Dose: 2 mg Sodium Chloride (Saline 0.9%) 1,000 mls @ 100 mls/hr IV .Q10H [facility] Last Admin: 12/30/17 14:28 Dose: 100 mls/hr Insulin Aspart (Novolog) 0 unit SQ [facility] PRN Reason: Protocol Last Admin: 12/30/17 17:50 Dose: 3 unit Insulin Detemir (Levemir) 30 unit SQ [facility] Levothyroxine Sodium (Synthroid) 200 mcg PO DAILY@0630 [facility] Last Admin: 12/30/17 14:34 Dose: Not Given Levothyroxine Sodium (Synthroid) 50 mcg PO DAILY@0630 [facility] Last Admin: 12/30/17 14:34 Dose: Not Given Metoclopramide HCl (Reglan) 10 [facility] PO [facility] Last Admin: 12/30/17 17:50 Dose: Not Given Metoprolol Succinate (Toprol Xl) 100 mg PO DAILY [facility] Last Admin: 12/30/17 14:34 Dose: Not Given Naloxone HCl (Narcan) 0.2 mg IV Q2M PRN PRN Reason: Opioid Reversal Ondansetron HCl (Zofran) 4 mg IVP Q8HR PRN PRN Reason: Nausea And Vomiting Last Admin: 12/30/17 17:52 Dose: 4 mg Ondansetron HCl (Zofran) 8 mg PO Q6HR PRN PRN Reason: Nausea And Vomiting Pravastatin Sodium (Pravachol) 40 mg PO HS [facility] Rivaroxaban (Xarelto) 20 mg PO HS [facility] Tizanidine HCl (Zanaflex) 8 mg PO HS [facility] Topiramate (Topamax) 75 mg PO BID [facility] Last Admin: 12/30/17 14:34 Dose: Not Given Trimethobenzamide HCl (Tigan) 300 mg PO TID PRN PRN Reason: Nausea Home Medications Medication Instructions Recorded Confirmed Type Pravastatin Sodium [Pravachol] 40 mg PO HS 01/24/16 12/30/17 History Cyanocobalamin [Vitamin B-12] 2,000 mcg PO HS 01/25/16 12/30/17 History Ferrous Sulfate [Iron (65 MG 325 mg PO BID 08/24/16 02/09/18 History Elemental)] Rivaroxaban [Xarelto] 20 mg PO HS 03/09/17 12/30/17 History tiZANidine [Zanaflex] 8 mg PO HS 03/09/17 12/30/17 History Levothyroxine Sodium [Synthroid] 50 mcg PO DAILY 07/29/17 12/30/17 History Levothyroxine Sodium [Synthroid] 200 mcg PO DAILY 07/29/17 12/30/17 History Metoclopramide [Reglan] 10 mg PO ACHS 07/29/17 12/30/17 History Insulin Glargine [Lantus] 30 unit SQ HS vial 08/05/17 12/30/17 Rx Insulin Aspart [NovoLOG Flexpen] See Protocol SQ AC-TID 09/13/17 12/30/17 History Topiramate [Topamax] 75 mg PO BID 09/13/17 12/30/17 History Ondansetron [Zofran] 8 mg PO Q6HR PRN 09/25/17 12/30/17 History Trimethobenzamide HCl [Tigan] 300 mg PO TID PRN 09/25/17 12/30/17 History Metoprolol Succinate (ER) [Toprol 100 mg PO DAILY 10/24/17 12/30/17 History Xl] Ranitidine HCl 150 mg PO BID 12/17/17 12/30/17 History Allergies Allergy/AdvReac Type Severity Reaction Status Date / Time barium sulfate Allergy Anaphylaxis Verified 12/30/17 06:43 diphtheria, pertussis, Allergy Unknown Verified 12/30/17 06:43 tetanus vacc doxepin [Doxepin] Allergy Anaphylaxis Verified 12/30/17 06:43 influenza virus vaccine, Allergy Rash/Hives Verified 12/30/17 06:43 specific [Influenza Virus Vacc,Specific] promethazine HCl Allergy Anaphylaxis Verified 12/30/17 06:43 [From Phenergan] doxycycline AdvReac Nausea & Verified 12/30/17 06:43 Vomiting & Diarrhea Pertussis Vaccines AdvReac fever/seizu Verified 12/30/17 06:43 re pseudoephedrine AdvReac Chest Pain Verified 12/30/17 06:43 pseudoephedrine HCl AdvReac Chest Pain Verified 12/30/17 06:43 [From Sudafed] sulfamethoxazole AdvReac Nausea & Verified 12/30/17 06:43 [From Bactrim] Vomiting trimethoprim [From Bactrim] AdvReac Nausea & Verified 12/30/17 06:43 Vomiting Physical Exam Vitals: Vital Signs Temp Pulse Pulse Resp BP BP Pulse Ox 12/30/17 15:00 97.2 F L 90 16 129/88 98 12/30/17 08:05 97.2 F L 84 16 138/94 96 12/30/17 06:39 98.2 F 84 18 145/97 96 12/30/17 05:00 81 18 141/86 96 12/30/17 03:57 88 18 148/88 98 12/29/17 23:05 100.0 F H 104 H 20 173/98 99 Intake and Output 12/30/17 12/30/17 12/30/17 06:59 14:59 22:59 Intake Total 500 Balance 500 Intake: Oral 500 Other: Voiding Method Toilet Toilet Weight 108.862 kg 37-year-old female with 26 ER visits in the last 3 years HEENT: Anicteric conjunctiva are pink and moist nasal mucosa grossly intact without significant lesions, there is no thrush. Neck: The neck is supple, no significant stiffness is noted without significant lymphadenopathy or thyromegaly. Lungs: Good bilateral air entry without significant crackles or wheezing. There is no significant bronchial sounds. There is no egophony or dullness. Heart: Regular rate and rhythm with an audible S1-S2, no S3 no S4. There is no significant murmur click or rub, PMI was nondisplaced. Abdomen: Positive bowel sounds soft and nontender without palpable masses or organomegaly. There was no guarding or rebound. Extremities: The upper extremities have excellent pulses they are symmetric, no significant petechiae or telangiectasia. No splinter hemorrhages were noted. The lower extremities are free from significant edema. The peripheral pulses were 2+ and symmetric. Neuro: Awake alert oriented to person place and time. She complains of generalized weakness. She is able to follow all simple commands. Doesn't like to move much because she is complaining of such headache. Results CBC & Chem 7: 12/30/17 01:16 12/30/17 01:16 Labs: Abnormal Lab Results - Last 24 Hours (Table) 12/30/17 12/30/17 12/30/17 Range/Units 01:16 01:16 01:16 WBC 12.6 H (3.8-10.6) k/uL Neutrophils # 8.5 H (1.3-7.7) k/uL Carbon Dioxide 21 L (22-30) mmol/L Glucose 142 H (74-99) mg/dL POC Glucose (mg/dL) (75-99) mg/dL Calcium 10.3 H (8.4-10.2) mg/dL AST 41 H (14-36) U/L Total Protein 8.4 H (6.3-8.2) g/dL Albumin 5.1 H (3.5-5.0) g/dL Urine Appearance Cloudy H (Clear) Urine Protein Trace H (Negative) Ur Leukocyte Esterase Trace H (Negative) Urine WBC 9 H (0-5) /hpf Urine WBC Clumps Rare H (None) /hpf Ur Squamous Epith Cells 6 H (0-4) /hpf Urine Bacteria Rare H (None) /hpf Urine Mucus Rare H (None) /hpf 12/30/17 12/30/17 12/30/17 Range/Units 12:41 17:16 20:21 WBC (3.8-10.6) k/uL Neutrophils # (1.3-7.7) k/uL Carbon Dioxide (22-30) mmol/L Glucose (74-99) mg/dL POC Glucose (mg/dL) 130 H 181 H 158 H (75-99) mg/dL Calcium (8.4-10.2) mg/dL AST (14-36) U/L Total Protein (6.3-8.2) g/dL Albumin (3.5-5.0) g/dL Urine Appearance (Clear) Urine Protein (Negative) Ur Leukocyte Esterase (Negative) Urine WBC (0-5) /hpf Urine WBC Clumps (None) /hpf Ur Squamous Epith Cells (0-4) /hpf Urine Bacteria (None) /hpf Urine Mucus (None) /hpf Microbiology - Last 24 Hours (Table) 12/30/17 01:16 Urine Culture - Preliminary Urine,Clean Catch Laboratory Results WBC 12.6 k/uL (3.8-10.6) H 12/30/17 01:16 RBC 5.09 m/uL (3.80-5.40) 12/30/17 01:16 Hgb 14.4 gm/dL (11.4-16.0) 12/30/17 01:16 Hct 46.0 % (34.0-46.0) 12/30/17 01:16 MCV 90.5 fL (80.0-100.0) 12/30/17 01:16 MCH 28.3 pg (25.0-35.0) 12/30/17 01:16 MCHC 31.2 g/dL (31.0-37.0) 12/30/17 01:16 RDW 14.6 % (11.5-15.5) 12/30/17 01:16 Plt Count 407 k/uL (150-450) 12/30/17 01:16 Neutrophils % 68 % 12/30/17 01:16 Lymphocytes % 22 % 12/30/17 01:16 Monocytes % 6 % 12/30/17 01:16 Eosinophils % 2 % 12/30/17 01:16 Basophils % 1 % 12/30/17 01:16 Neutrophils # 8.5 k/uL (1.3-7.7) H 12/30/17 01:16 Lymphocytes # 2.8 k/uL (1.0-4.8) 12/30/17 01:16 Monocytes # 0.7 k/uL (0-1.0) 12/30/17 01:16 Eosinophils # 0.2 k/uL (0-0.7) 12/30/17 01:16 Basophils # 0.1 k/uL (0-0.2) 12/30/17 01:16 PT 10.5 sec (9.0-12.0) 12/30/17 01:16 INR 1.1 (<1.2) 12/30/17 01:16 APTT 29.3 sec (22.0-30.0) 12/30/17 01:16 Sodium 142 mmol/L (137-145) 12/30/17 01:16 Potassium 4.4 mmol/L (3.5-5.1) 12/30/17 01:16 Chloride 105 mmol/L (98-107) 12/30/17 01:16 Carbon Dioxide 21 mmol/L (22-30) L 12/30/17 01:16 Anion Gap 16 mmol/L 12/30/17 01:16 BUN 14 mg/dL (7-17) 12/30/17 01:16 Creatinine 0.70 mg/dL (0.52-1.04) 12/30/17 01:16 Est GFR (MDRD) Af Amer >60 (>60 ml/min/1.73 sqM) 12/30/17 01:16 Est GFR (MDRD) Non-Af >60 (>60 ml/min/1.73 sqM) 12/30/17 01:16 Glucose 142 mg/dL (74-99) H 12/30/17 01:16 POC Glucose (mg/dL) 158 mg/dL (75-99) H 12/30/17 20:21 POC Glu Product Developer Alyssa Zhu 12/30/17 20:21 Calcium 10.3 mg/dL (8.4-10.2) H 12/30/17 01:16 Total Bilirubin 0.3 mg/dL (0.2-1.3) 12/30/17 01:16 AST 41 U/L (14-36) H 12/30/17 01:16 ALT 40 U/L (9-52) 12/30/17 01:16 Alkaline Phosphatase 120 U/L (38-126) 12/30/17 01:16 Total Protein 8.4 g/dL (6.3-8.2) H 12/30/17 01:16 Albumin 5.1 g/dL (3.5-5.0) H 12/30/17 01:16 Urine Color Yellow 12/30/17 01:16 Urine Appearance Cloudy (Clear) H 12/30/17 01:16 Urine pH 6.0 (5.0-8.0) 12/30/17 01:16 Ur Specific [place] 1.020 (1.001-1.035) 12/30/17 01:16 Urine Protein Trace (Negative) H 12/30/17 01:16 Urine Glucose (UA) Negative (Negative) 12/30/17 01:16 Urine Ketones Negative (Negative) 12/30/17 01:16 Urine Blood Negative (Negative) 12/30/17 01:16 Urine Nitrite Negative (Negative) 12/30/17 01:16 Urine Bilirubin Negative (Negative) 02/09/18 01:16 Urine Urobilinogen <2.0 mg/dL (<2.0) 12/30/17 01:16 Ur Leukocyte Esterase Trace (Negative) H 12/30/17 01:16 Urine RBC 1 /hpf (0-5) 12/30/17 01:16 Urine WBC 9 /hpf (0-5) H 12/30/17 01:16 Urine WBC Clumps Rare /hpf (None) H 12/30/17 01:16 Ur Squamous Epith Cells 6 /hpf (0-4) H 12/30/17 01:16 Urine Bacteria Rare /hpf (None) H 12/30/17 01:16 Hyaline Casts 1 /lpf (0-2) 12/30/17 01:16 Urine Mucus Rare /hpf (None) H 12/30/17 01:16 Influenza Type A RNA Not Detected (Not Detectd) 12/30/17 00:13 Influenza Type B (PCR) Not Detected (Not Detectd) 12/30/17 00:13 Microbiology 12/30/17 01:16 Urine,Clean Catch Urine Culture - Preliminary Assessment and Plan (1) Headache Narrative/Plan: 37-year-old female presents to the emergency center complaining of significant headache that is quite different than her hemiplegic migraines that she often suffers from. Is complaining of bifrontal headache associated with pressure. She really she's had a fever at home with some chills without ester rigor. May have had a sweat. With the headache she's had some nausea without much emesis. No hematemesis melena or hematochezia. She's not having any acute neurological deficits. Influenza testing is negative, with no evidence of urinary tract infection or pneumonia. Does not have classic signs of meningitis or meningismus. Neurological evaluation is in process and a MRI/MRA has been requested to further characterize her vascular status given the antibiotics that were seen with her basilar circulation. She did have a leukocytosis that is already improving, not clear the amount of outpatient steroids she was taking. 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
[2017-12-30] MEDS: ONDANSETRON 4 MG TAB PO PRN (22:16)
[2017-12-30] MEDS: INSULIN DETEMIR 100 UNIT/ML 10 ML VIAL SQ SCH (22:17)
[2017-12-30] MEDS: CYANOCOBALAMIN 500 MCG TAB PO SCH (22:18)
[2017-12-30] MEDS: RIVAROXABAN 10 MG TAB PO SCH (22:21)
[2017-12-30] MEDS: PRAVASTATIN SODIUM 40 MG TAB PO SCH (22:21)
[2017-12-30] MEDS: tiZANidine 4 MG TAB PO SCH (22:22)
[2017-12-31] MEDS: HYDROmorphone 2 MG TAB PO PRN ×6 (00:32→20:08)
[2017-12-31] MEDS: SODIUM CHLORIDE 0.9% 1,000 ML IV SCH ×3 (00:34→21:08)
[2017-12-31] MEDS: LEVOTHYROXINE 50 MCG TAB PO SCH (06:04)
[2017-12-31] MEDS: LEVOTHYROXINE 100 MCG TAB PO SCH (06:04)
[2017-12-31] MEDS: ONDANSETRON 4 MG TAB PO PRN ×2 (06:04→17:43)
[2017-12-31 06:57] LABS: Glucose,Whole Blood 107 mg/dL (75-99)
[2017-12-31] MEDS: INSULIN ASPART 100 UNIT/ML 1 ML 10 ML VIAL SQ SCH ×4 (06:59→21:13)
[2017-12-31 07:30] LABS: Basophils % (A) 0 %; Eosinophils # (A) 0.1 k/uL (0-0.7); Eosinophils % (A) 1 %; HCT 37.9 % (34.0-46.0); Hypochromasia Slight; Lymphocytes # (A) 2.2 k/uL (1.0-4.8); Lymphocytes % (A) 22 %; MCH 27.5 pg (25.0-35.0); MCHC 29.8 g/dL (31.0-37.0); MCV 92.1 fL (80.0-100.0); Monocytes # (A) 0.8 k/uL (0-1.0); Monocytes % (A) 8 %; Neutrophils # (A) 6.7 k/uL (1.3-7.7); Neutrophils % (A) 67 %; Platelet Count 306 k/uL (150-450); RBC 4.11 m/uL (3.80-5.40); RDW 14.6 % (11.5-15.5)
[2017-12-31 07:37] LABS: HGB 11.3 gm/dL (11.4-16.0)
[2017-12-31] MEDS: METOPROLOL SUCCINATE (ER) 100 MG TAB.ER.24H PO SCH (07:37)
[2017-12-31] MEDS: TOPIRAMATE 25 MG TAB PO SCH ×2 (07:37→21:10)
[2017-12-31] MEDS: FERROUS SULFATE 325 MG TAB PO SCH ×2 (07:38→21:09)
[2017-12-31] MEDS: cefTRIAXone IN SWFI 1,000 MG/10 ML SYRINGE IVP SCH (07:38)
[2017-12-31] MEDS: FAMOTIDINE 20 MG TAB PO SCH ×2 (07:38→21:09)
[2017-12-31] MEDS: METOCLOPRAMIDE 10 MG TAB PO SCH ×4 (07:38→21:09)
[2017-12-31 07:42] LABS: ALT 39 U/L (9-52); AST 32 U/L (14-36); Albumin 4.1 g/dL (3.5-5.0); Alkaline Phosphatase 97 U/L (38-126); Anion Gap 12 mmol/L; Blood Urea Nitrogen 10 mg/dL (7-17); Calcium 10.2 mg/dL (8.4-10.2); Carbon Dioxide 18 mmol/L (22-30); Chloride 110 mmol/L (98-107); Glucose 118 mg/dL (74-99); Sodium 140 mmol/L (137-145); Total Bilirubin 0.3 mg/dL (0.2-1.3); Total Protein 6.7 g/dL (6.3-8.2)
[2017-12-31] MEDS: ONDANSETRON 4 MG/2 ML VIAL IVP PRN (10:15)
[2017-12-31 12:04] LABS: Hepatitis A Antibody IgM Non-Reactive (Non-Reactive); Hepatitis B Core IgM Non-Reactive (Non-Reactive)
--- NOTE | 2017-12-31 12:21 | P.PN ---
Subjective Progress Note Date: 12/31/17 patient is a 37-year-old female who presented to [facility] emergency room with a chief complaint of severe headache she was evaluated in the emergency room she had low-grade fever, and due to the severity of her headache and to her abnormal previous testing decision was made to proceed with admitting her to medical floor for further evaluation and treatment. Patient initially started having headaches about 10 days ago, prior to that she only had episodes of migraine headache, however 10 days ago she started having different kind of headache that was constant and severe, she presented to emergency room at that time and had a CT angiogram of her head which revealed anterior cerebral arteries appear to feel entirely from the right side without any evidence of intracranial aneurysm or stenosis, at that time she was discharged home, she presented to our office as a new patient, arrangement where made for her for follow-up MRI and neurology appointment however she presented again to emergency room with worsening severe headache prior to having any chance to have any testing as outpatient and decision was made to proceed with admission and inpatient testing and neurology consultation. On presentation patient had low-grade fever of 100, white blood count was slightly elevated at 12.5, due to the severe headache and low-grade fever patient was started on Rocephin 1 g IV every 24 hours and consultation for infectious disease was initiated. On 12/31/2017 patient is alert and oriented 3 she is still having headache but improved since yesterday Wai is within normal limits white blood count has normalized, urine culture is positive for strep agalactiae Group B Objective - Vital Signs Vital signs: Vital Signs Temp 97.0 F L 12/31/17 07:00 Pulse 86 12/31/17 08:00 Resp 16 12/31/17 08:00 BP 124/71 12/31/17 07:00 Pulse Ox 96 12/31/17 07:00 Intake & Output 12/30/17 12/31/17 12/31/17 18:59 06:59 18:59 Intake Total 500 1790 Balance 500 1790 Intake: Intake, IV Titration 1200 Amount Sodium Chloride 0.9% 1, 1200 000 ml @ 100 mls/hr IV . Q10H JOSE Rx#:[id number] Oral 500 590 Other: Voiding Method Toilet Toilet Toilet # Voids 2 - Exam In general patient is alert and oriented 3 in no apparent distress HEENT head normocephalic and atraumatic Neck is supple no JVD no goiter no lymphadenopathy Chest exam reveals a few scattered crackles bilaterally no wheezing Cardiac exam reveals regular heart sounds S1 and S2 no gallops no murmurs Abdomen is soft nontender no organomegaly with normal bowel sounds Extremity exam reveals minimal edema neurological examination reveals no gross focal deficits cranial nerve II-12 are intact speech is fluent Gait was not tested but patient reports that she was walking fine no focal motor or sensory deficit. - Labs CBC & Chem 7: 12/31/17 06:54 12/31/17 06:54 Labs: Abnormal Lab Results - Last 24 Hours (Table) 12/30/17 12/30/17 12/30/17 Range/Units 12:41 17:16 20:21 Hgb (11.4-16.0) gm/dL MCHC (31.0-37.0) g/dL Chloride (98-107) mmol/L Carbon Dioxide (22-30) mmol/L Glucose (74-99) mg/dL POC Glucose (mg/dL) 130 H 181 H 158 H (75-99) mg/dL 12/31/17 12/31/17 12/31/17 Range/Units 06:54 06:54 06:55 Hgb 11.3 L D (11.4-16.0) gm/dL MCHC 29.8 L (31.0-37.0) g/dL Chloride 110 H (98-107) mmol/L Carbon Dioxide 18 L (22-30) mmol/L Glucose 118 H (74-99) mg/dL POC Glucose (mg/dL) 107 H (75-99) mg/dL Microbiology - Last 24 Hours (Table) 12/30/17 01:16 Urine Culture - Final Urine,Clean Catch Strep agalactiae - (group b) Assessment and Plan Plan: #1 severe headache #[address] angiogram of the brain #3 extensive past medical history including, positive lupus anticoagulant patient is maintained on Xarelto #4 low-grade fever on presentation Continue was current medication at this time Start Rocephin 1 g IV every 24 hours prophylactically Awaiting MRI of the brain Awaiting input of neurology and infectious disease At this time we are awaiting MRI and MRA awaiting input from neurology
[2017-12-31 12:37] LABS: Glucose,Whole Blood 141 mg/dL (75-99)
--- NOTE | 2017-12-31 12:44 | MR ---
EXAMINATION TYPE: MR brain wo/w mrane wo/wcon DATE OF EXAM: 12/31/2017 COMPARISON: Previous study dated 12/22/2015. HISTORY: Intractalbe headache TECHNIQUE: Multiplanar, multisequence images of the brain and brainstem is performed without and with IV contras t, utilizing 10 mL intravenous Gadavist . FINDINGS: Midline structures are unremarkable. There is a normal craniocervical junction. Echoplanar diffusion imaging is normal. There are normal vascular flow voids. The orbits appear normal. There is no evidence of a CP angle mass lesion. No discrete focal lesion, mass effect or midline shift is seen. I do not see evidence of intracranial blood. IMPRESSION: NORMAL MRI OF THE BRAIN. MRA OF THE NECK: There is a normal origin of the great vessels. The right vertebral artery is dominant. There is no significant carotid stenosis. Both internal and external carotid arteries appear normal. IMPRESSION: NORMAL MRA OF THE NECK.
--- NOTE | 2017-12-31 14:10 | MR ---
EXAMINATION TYPE: MR angio head wo con DATE OF EXAM: 12/31/2017 11:36 AM COMPARISON: Previous MRI dated 11/17/2015. HISTORY: Intractable headache TECHNIQUE: Time of flight images focusing on the [place] were performed without contrast. FINDINGS: The right vertebral artery is dominant. Both posterior communicating arteries are patent. B oth ophthalmic arteries are patent. There is a hypoplastic or absent A1 segment of the left anterior cerebral artery. The anterior communicating artery is patent. There is normal arborization of the middle cerebral arteries. There is no sizable aneurysm. IMPRESSION: ABSENT OR MARKEDLY HYPOPLASTIC A1 SEGMENT OF THE LEFT ANTERIOR CEREBRAL ARTERY.
[2017-12-31] MEDS ORDERED: ACETAMINOPHEN TAB 500 MG TAB PO PRN (16:10)
[2017-12-31 17:03] LABS: Glucose,Whole Blood 134 mg/dL (75-99)
--- NOTE | 2017-12-31 18:08 | P.PN ---
Subjective Progress Note Date: 12/31/17 This patient is a 37-year-old female admitted to hospital with severe headache pain. She had been evaluated a week earlier with similar symptoms. She underwent a CTA angiogram which was felt to be abnormal. Patient was at mid to the hospital on 12/30/2017 for further evaluation. Patient was able to go for MRI of the brain today. MRI is reported normal and MRA of the neck was also reported normal. 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 We reviewed the results today with the patient. This is most likely a congenital finding. She is still complaining of headache pain however we have reassured her that MRI MRA does not show any evidence of aneurysm or tumor. She is mostly noticing pain radiating from the back of the head and neck to the bitemporal area. She does seem to have evidence of occipital neuritis today on palpation right greater than left. We have suggested patient may be a good candidate for bilateral occipital nerve block procedure. She is willing to have this procedure done and we will contact anesthesia and pain management to perform nerve block for the patient as soon as possible. In the meantime she is still requiring Dilaudid every 3-4 hours. Hopefully this dosage may be reduced depending on how she responds to the occipital blocks. We have reviewed all of the imaging studies today with the patient in detail. We will continue to follow her progress closely during this admission. Her urine cultures did come back positive for streptococcus group B. She is being started on Rocephin. We will continue to monitor progress closely during this admission. Objective - Vital Signs Vital signs: Vital Signs Temp 99.9 F H 12/31/17 15:57 Pulse 91 12/31/17 15:57 Resp 18 12/31/17 15:57 BP 143/99 12/31/17 15:57 Pulse Ox 96 12/31/17 15:57 Intake & Output 12/30/17 12/31/17 12/31/17 18:59 06:59 18:59 Intake Total 500 1790 700 Balance 500 1790 700 Intake: Intake, IV Titration 1200 700 Amount Sodium Chloride 0.9% 1, 1200 700 000 ml @ 100 mls/hr IV . Q10H [facility] Rx#:[id number] Oral 500 590 Other: Voiding Method Toilet Toilet Toilet # Voids 2 - Exam Physical examination: PHYSICAL EXAMINATION: Patient is resting comfortably in bed. VITAL SIGNS: Blood pressure is [143/99]. Heart rate is [91]. Respiration is [18] . Temperature is [99.9]. HEENT: Head is atraumatic, neck is supple, there were no carotid bruits. CHEST: Lungs are clear to auscultation and percussion. CARDIAC: S1, S2 normal rate and rhythm. There is no murmur. ABDOMEN: Soft and nontender. Bowel sounds are present. EXTREMITIES: There is no pedal edema. Peripheral pulses are present. Neurological examination: Patient has a nonfocal neurological examination today. 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 - Labs CBC & Chem 7: 12/31/17 06:54 12/31/17 06:54 Labs: Abnormal Lab Results - Last 24 Hours (Table) 12/30/17 12/30/17 12/31/17 Range/Units 17:16 20:21 06:54 Hgb 11.3 L D (11.4-16.0) gm/dL MCHC 29.8 L (31.0-37.0) g/dL Chloride (98-107) mmol/L Carbon Dioxide (22-30) mmol/L Glucose (74-99) mg/dL POC Glucose (mg/dL) 181 H 158 H (75-99) mg/dL 12/31/17 12/31/17 12/31/17 Range/Units 06:54 06:55 12:25 Hgb (11.4-16.0) gm/dL MCHC (31.0-37.0) g/dL Chloride 110 H (98-107) mmol/L Carbon Dioxide 18 L (22-30) mmol/L Glucose 118 H (74-99) mg/dL POC Glucose (mg/dL) 107 H 141 H (75-99) mg/dL Microbiology - Last 24 Hours (Table) 12/30/17 01:16 Urine Culture - Final Urine,Clean Catch Strep agalactiae - (group b) Assessment and Plan (1) Headache Current Visit: Yes Status: Acute Code(s): R51 - HEADACHE SNOMED Code(s): 92885512 (2) Lupus anticoagulant disorder Current Visit: Yes Status: Acute Code(s): D68.62 - LUPUS ANTICOAGULANT SYNDROME SNOMED Code(s): 37953057 (3) Hypercoagulable state Current Visit: No Status: Chronic Code(s): D68.59 - OTHER PRIMARY THROMBOPHILIA SNOMED Code(s): 88222398 (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 Patient was sent for MRI of the brain and MRA. She also had CT MR angiogram all of the results of which are noted above. 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 She does not require any neurosurgical treatment at this time for this condition as she has good collateral circulation through the [place]. We have reviewed the results of all of the neuro imaging studies today with the patient. All of her questions are answered. 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 We are recommending that she undergo a occipital nerve block procedure for further treatment. We will continue to follow her progress closely. Hopefully she will be able to cut back on the use of Dilaudid. Her overall prognosis at this time remains guarded.
[2017-12-31 21:06] LABS: Glucose,Whole Blood 135 mg/dL (75-99)
[2017-12-31] MEDS: CYANOCOBALAMIN 500 MCG TAB PO SCH (21:09)
[2017-12-31] MEDS: tiZANidine 4 MG TAB PO SCH (21:10)
[2017-12-31] MEDS: PRAVASTATIN SODIUM 40 MG TAB PO SCH (21:10)
[2017-12-31] MEDS: RIVAROXABAN 10 MG TAB PO SCH (21:10)
[2017-12-31] MEDS: INSULIN DETEMIR 100 UNIT/ML 10 ML VIAL SQ SCH (21:10)
--- NOTE | 2018-01-01 00:08 | P.PN ---
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 And has progressive dysautonomia which is directly affecting her ability to ambulate. She also has a history of hemiplegic migraines but current headace is very different than her hemiplegic migraines. It is bifrontal and associated with pressure and feels quite poorly. She did have a headache somewhat similar earlier this year. He has noted she's had difficulty with the deep venous thrombosis the left arm and is being treated with Xarelto. Is the patient has a very complex past medical history. Because of her current symptoms computed tomography scan was performed that shows evidence of the abnormality in that the right vertebral artery is dominant in the left vertebral artery is very small in size. Patient does have a prior CT angiogram which did not reveal aneurysm. Patient feeling better today. Fevers improved. She is reading a book on her Anup[place] with improvement of her headache in her vision. Denies further significant fever chill or rigor. Objective - Vital Signs Vital signs: Vital Signs Temp 99.9 F H 12/31/17 15:57 Pulse 91 12/31/17 15:57 Resp 18 12/31/17 15:57 BP 143/99 12/31/17 15:57 Pulse Ox 96 12/31/17 15:57 Intake & Output 12/31/17 12/31/17 01/01/18 06:59 18:59 06:59 Intake Total 1790 700 Balance 1790 700 Intake: Intake, IV Titration 1200 700 Amount Sodium Chloride 0.9% 1, 1200 700 000 ml @ 100 mls/hr IV . Q10H [facility] Rx#:[id number] Oral 590 Other: Voiding Method Toilet Toilet # Voids 2 - Exam 37-year-old female with 26 ER visits in the last 3 years HEENT: Anicteric conjunctiva are pink and moist nasal mucosa grossly intact without significant lesions, there is no thrush. Neck: The neck is supple, no significant stiffness is noted without significant lymphadenopathy or thyromegaly. Lungs: Good bilateral air entry without significant crackles or wheezing. There is no significant bronchial sounds. There is no egophony or dullness. Heart: Regular rate and rhythm with an audible S1-S2, no S3 no S4. There is no significant murmur click or rub, PMI was nondisplaced. Abdomen: Positive bowel sounds soft and nontender without palpable masses or organomegaly. There was no guarding or rebound. Extremities: The upper extremities have excellent pulses they are symmetric, no significant petechiae or telangiectasia. No splinter hemorrhages were noted. The lower extremities are free from significant edema. The peripheral pulses were 2+ and symmetric. Neuro: Awake alert oriented to person place and time. She complains of generalized weakness. She is able to follow all simple commands. Feeling better today much less headache improved ability to ambulate and move - Labs CBC & Chem 7: 12/31/17 06:54 12/31/17 06:54 Labs: Abnormal Lab Results - Last 24 Hours (Table) 12/31/17 12/31/17 12/31/17 Range/Units 06:54 06:54 06:55 Hgb 11.3 L D (11.4-16.0) gm/dL MCHC 29.8 L (31.0-37.0) g/dL Chloride 110 H (98-107) mmol/L Carbon Dioxide 18 L (22-30) mmol/L Glucose 118 H (74-99) mg/dL POC Glucose (mg/dL) 107 H (75-99) mg/dL 12/31/17 12/31/17 12/31/17 Range/Units 12:25 17:01 21:03 Hgb (11.4-16.0) gm/dL MCHC (31.0-37.0) g/dL Chloride (98-107) mmol/L Carbon Dioxide (22-30) mmol/L Glucose (74-99) mg/dL POC Glucose (mg/dL) 141 H 134 H 135 H (75-99) mg/dL Microbiology - Last 24 Hours (Table) 12/30/17 01:16 Urine Culture - Final Urine,Clean Catch Strep agalactiae - (group b) Laboratory Results WBC 10.0 k/uL (3.8-10.6) 12/31/17 06:54 RBC 4.11 m/uL (3.80-5.40) 12/31/17 06:54 Hgb 11.3 gm/dL (11.4-16.0) L D 12/31/17 06:54 Hct 37.9 % (34.0-46.0) 12/31/17 06:54 MCV 92.1 fL (80.0-100.0) 12/31/17 06:54 MCH 27.5 pg (25.0-35.0) 12/31/17 06:54 MCHC 29.8 g/dL (31.0-37.0) L 12/31/17 06:54 RDW 14.6 % (11.5-15.5) 12/31/17 06:54 Plt Count 306 k/uL (150-450) 12/31/17 06:54 Neutrophils % 67 % 12/31/17 06:54 Lymphocytes % 22 % 12/31/17 06:54 Monocytes % 8 % 12/31/17 06:54 Eosinophils % 1 % 12/31/17 06:54 Basophils % 0 % 12/31/17 06:54 Neutrophils # 6.7 k/uL (1.3-7.7) 12/31/17 06:54 Lymphocytes # 2.2 k/uL (1.0-4.8) 12/31/17 06:54 Monocytes # 0.8 k/uL (0-1.0) 12/31/17 06:54 Eosinophils # 0.1 k/uL (0-0.7) 12/31/17 06:54 Basophils # 0.0 k/uL (0-0.2) 12/31/17 06:54 Hypochromasia Slight 12/31/17 06:54 PT 10.5 sec (9.0-12.0) 12/30/17 01:16 INR 1.1 (<1.2) 12/30/17 01:16 APTT 29.3 sec (22.0-30.0) 12/30/17 01:16 Sodium 140 mmol/L (137-145) 12/31/17 06:54 Potassium 4.0 mmol/L (3.5-5.1) 12/31/17 06:54 Chloride 110 mmol/L (98-107) H 12/31/17 06:54 Carbon Dioxide 18 mmol/L (22-30) L 12/31/17 06:54 Anion Gap 12 mmol/L 12/31/17 06:54 BUN 10 mg/dL (7-17) 12/31/17 06:54 Creatinine 0.54 mg/dL (0.52-1.04) 12/31/17 06:54 Est GFR (MDRD) Af Amer >60 (>60 ml/min/1.73 sqM) 12/31/17 06:54 Est GFR (MDRD) Non-Af >60 (>60 ml/min/1.73 sqM) 12/31/17 06:54 Glucose 118 mg/dL (74-99) H 12/31/17 06:54 POC Glucose (mg/dL) 135 mg/dL (75-99) H 12/31/17 21:03 POC Glu [employer]liance [employer] ID Alyssa Espinal 12/31/17 21:03 Calcium 10.2 mg/dL (8.4-10.2) 12/31/17 06:54 Total Bilirubin 0.3 mg/dL (0.2-1.3) 12/31/17 06:54 AST 32 U/L (14-36) 12/31/17 06:54 ALT 39 U/L (9-52) 12/31/17 06:54 Alkaline Phosphatase 97 U/L (38-126) 12/31/17 06:54 Total Protein 6.7 g/dL (6.3-8.2) 12/31/17 06:54 Albumin 4.1 g/dL (3.5-5.0) 12/31/17 06:54 Urine Color Yellow 12/30/17 01:16 Urine Appearance Cloudy (Clear) H 12/30/17 01:16 Urine pH 6.0 (5.0-8.0) 12/30/17 01:16 Ur Specific [place] 1.020 (1.001-1.035) 12/30/17 01:16 Urine Protein Trace (Negative) H 12/30/17 01:16 Urine Glucose (UA) Negative (Negative) 12/30/17 01:16 Urine Ketones Negative (Negative) 12/30/17 01:16 Urine Blood Negative (Negative) 12/30/17 01:16 Urine Nitrite Negative (Negative) 12/30/17 01:16 Urine Bilirubin Negative (Negative) 12/30/17 01:16 Urine Urobilinogen <2.0 mg/dL (<2.0) 12/30/17 01:16 Ur Leukocyte Esterase Trace (Negative) H 12/30/17 01:16 Urine RBC 1 /hpf (0-5) 12/30/17 01:16 Urine WBC 9 /hpf (0-5) H 12/30/17 01:16 Urine WBC Clumps Rare /hpf (None) H 12/30/17 01:16 Ur Squamous Epith Cells 6 /hpf (0-4) H 12/30/17 01:16 Urine Bacteria Rare /hpf (None) H 12/30/17 01:16 Hyaline Casts 1 /lpf (0-2) 12/30/17 01:16 Urine Mucus Rare /hpf (None) H 12/30/17 01:16 Influenza Type A RNA Not Detected (Not Detectd) 12/30/17 00:13 Influenza Type B (PCR) Not Detected (Not Detectd) 12/30/17 00:13 Microbiology 12/30/17 01:16 Urine,Clean Catch Urine Culture - Final Strep agalactiae - (group b) Assessment and Plan (1) Headache Narrative/Plan: 37-year-old female presents to the emergency center complaining of significant headache that is quite different than her hemiplegic migraines that she often suffers from. Is complaining of bifrontal headache associated with pressure. She really she's had a fever at home with some chills without ester rigor. May have had a sweat. With the headache she's had some nausea without much emesis. No hematemesis melena or hematochezia. She's not having any acute neurological deficits. Influenza testing is negative, with no evidence of urinary tract infection or pneumonia. Does not have classic signs of meningitis or meningismus. Neurological evaluation is in process and a MRI/MRA has been requested to further characterize her vascular status given the abnormality that were seen with her basilar circulation. She did have a leukocytosis that is already improving, not clear the amount of outpatient steroids she was taking. There is evidence of elevated AST ALT we'll initiate further testing Urine culture positive for group B strep, Rocephin continues. When she is ready for discharge to home may be transitioned to cefuroxime to finish her course of therapy. 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
[2018-01-01] MEDS: HYDROmorphone 2 MG TAB PO PRN ×6 (00:27→22:08)
[2018-01-01] MEDS: LEVOTHYROXINE 100 MCG TAB PO SCH (06:19)
[2018-01-01] MEDS: LEVOTHYROXINE 50 MCG TAB PO SCH (06:20)
[2018-01-01 07:09] LABS: Glucose,Whole Blood 117 mg/dL (75-99)
[2018-01-01] MEDS: INSULIN ASPART 100 UNIT/ML 1 ML 10 ML VIAL SQ SCH ×4 (07:17→22:07)
[2018-01-01] MEDS: METOCLOPRAMIDE 10 MG TAB PO SCH ×4 (07:24→22:10)
[2018-01-01] MEDS: cefTRIAXone IN SWFI 1,000 MG/10 ML SYRINGE IVP SCH (07:24)
[2018-01-01] MEDS: METOPROLOL SUCCINATE (ER) 100 MG TAB.ER.24H PO SCH (07:24)
[2018-01-01] MEDS: TOPIRAMATE 25 MG TAB PO SCH ×2 (07:24→22:10)
[2018-01-01] MEDS: FERROUS SULFATE 325 MG TAB PO SCH ×2 (07:24→22:09)
[2018-01-01] MEDS: FAMOTIDINE 20 MG TAB PO SCH ×2 (07:24→22:10)
[2018-01-01] MEDS: ONDANSETRON 4 MG TAB PO PRN ×2 (07:32→22:09)
[2018-01-01] MEDS ORDERED: LACTULOSE 20 GM/30 ML CUP PO ONE (10:10)
--- NOTE | 2018-01-01 10:17 | P.PN ---
Subjective Progress Note Date: 01/01/18 patient is a 37-year-old female who presented to [facility] emergency room with a chief complaint of severe headache she was evaluated in the emergency room she had low-grade fever, and due to the severity of her headache and to her abnormal previous testing decision was made to proceed with admitting her to medical floor for further evaluation and treatment. Patient initially started having headaches about 10 days ago, prior to that she only had episodes of migraine headache, however 10 days ago she started having different kind of headache that was constant and severe, she presented to emergency room at that time and had a CT angiogram of her head which revealed anterior cerebral arteries appear to feel entirely from the right side without any evidence of intracranial aneurysm or stenosis, at that time she was discharged home, she presented to our office as a new patient, arrangement where made for her for follow-up MRI and neurology appointment however she presented again to emergency room with worsening severe headache prior to having any chance to have any testing as outpatient and decision was made to proceed with admission and inpatient testing and neurology consultation. On presentation patient had low-grade fever of 100, white blood count was slightly elevated at 12.5, due to the severe headache and low-grade fever patient was started on Rocephin 1 g IV every 24 hours and consultation for infectious disease was initiated. On 12/31/2017 patient is alert and oriented 3 she is still having headache but improved since yesterday Wai is within normal limits white blood count has normalized, urine culture is positive for strep agalactiae Group B On 01/01/2018 patient is alert and oriented in no distress, complaining of headache and constipation otherwise no complaints Objective - Vital Signs Vital signs: Vital Signs Temp 97.2 F L 01/01/18 07:00 Pulse 82 01/01/18 08:00 Resp 18 01/01/18 08:00 BP 126/83 01/01/18 07:00 Pulse Ox 96 01/01/18 07:00 Intake & Output 12/31/17 01/01/18 01/01/18 18:59 06:59 18:59 Intake Total 700 1180 Balance 700 1180 Intake: Intake, IV Titration 700 Amount Sodium Chloride 0.9% 1, 700 000 ml @ 100 mls/hr IV . Q10H [facility] Rx#:[id number] Oral 1180 Other: Voiding Method Toilet Toilet Toilet # Voids 3 - Exam In general patient is alert and oriented 3 in no apparent distress HEENT head normocephalic and atraumatic Neck is supple no JVD no goiter no lymphadenopathy Chest exam reveals a few scattered crackles bilaterally no wheezing Cardiac exam reveals regular heart sounds S1 and S2 no gallops no murmurs Abdomen is soft nontender no organomegaly with normal bowel sounds Extremity exam reveals minimal edema neurological examination reveals no gross focal deficits cranial nerve II-12 are intact speech is fluent Gait was not tested but patient reports that she was walking fine no focal motor or sensory deficit. - Labs CBC & Chem 7: 12/31/17 06:54 12/31/17 06:54 Labs: Abnormal Lab Results - Last 24 Hours (Table) 12/31/17 12/31/17 12/31/17 Range/Units 12:25 17:01 21:03 POC Glucose (mg/dL) 141 H 134 H 135 H (75-99) mg/dL 01/01/18 Range/Units 07:08 POC Glucose (mg/dL) 117 H (75-99) mg/dL Microbiology - Last 24 Hours (Table) 12/30/17 01:16 Urine Culture - Final Urine,Clean Catch Strep agalactiae - (group b) Assessment and Plan Plan: #1 severe headache #[address] angiogram of the brain #3 extensive past medical history including, positive lupus anticoagulant patient is maintained on Xarelto #4 low-grade fever on presentation with evidence of UTI 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 Continue was current medication at this time Start Rocephin 1 g IV every 24 hours Neurology recommending that she undergo a occipital nerve block procedure, will consult anesthesia Complaining of constipation, will give one dose of Lactulose At this time we are awaiting MRI and MRA awaiting input from neurology
[2018-01-01 11:19] LABS: Glucose,Whole Blood 170 mg/dL (75-99)
[2018-01-01] MEDS: ONDANSETRON 4 MG/2 ML VIAL IVP PRN (12:40)
[2018-01-01] MEDS: SODIUM CHLORIDE 0.9% 1,000 ML IV SCH (16:24)
--- NOTE | 2018-01-01 16:35 | P.PN ---
Subjective Progress Note Date: 01/01/18 This patient is a 37-year-old female with history of mitochondrial syndrome and progressive debility. She was admitted to hospital with severe headache symptoms. She underwent MRI/MRA of the brain results of which were reviewed with her yesterday. No acute findings were noted on the study. Her MRI of the brain is normal. 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 The patient does have evidence of occipital neuritis yesterday on examination. She does have history of hemiplegic migraine but her current headaches are quite different. She does test positive for occipital neuritis bilaterally. We are recommending a bilateral occipital nerve block procedure to be done by anesthesia. This is pending today. Hopefully this will be taken care of for her tomorrow and we will see if this helps with much of her current headache symptoms. The patient is being treated for positive urine culture for group B strep. She is currently on Rocephin. Infectious diseases monitoring her condition closely as well. Hopefully patient will have her nerve block procedure done tomorrow to see how this overall affects her headache pain. We will continue to follow her closely and will await further recommendations from anesthesia in terms of the occipital nerve block procedure. Objective - Vital Signs Vital signs: Vital Signs Temp 98.7 F 01/01/18 15:00 Pulse 81 01/01/18 15:00 Resp 18 01/01/18 15:00 BP 131/89 01/01/18 15:00 Pulse Ox 97 01/01/18 15:00 Intake & Output 12/31/17 01/01/18 01/01/18 18:59 06:59 18:59 Intake Total 700 1180 Balance 700 1180 Intake: Intake, IV Titration 700 Amount Sodium Chloride 0.9% 1, 700 000 ml @ 100 mls/hr IV . Q10H [facility] Rx#:[id number] Oral 1180 Other: Voiding Method Toilet Toilet Toilet # Voids 3 - Exam Physical examination: PHYSICAL EXAMINATION: Patient is resting comfortably in bed. VITAL SIGNS: Blood pressure is [126/83]. Heart rate is [82]. Respiration is [18] . Temperature is [97.2]. HEENT: Head is atraumatic, neck is supple, there were no carotid bruits. CHEST: Lungs are clear to auscultation and percussion. CARDIAC: S1, S2 normal rate and rhythm. There is no murmur. ABDOMEN: Soft and nontender. Bowel sounds are present. EXTREMITIES: There is no pedal edema. Peripheral pulses are present. Neurological examination: Patient has a nonfocal neurological examination today. 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 - Labs CBC & Chem 7: 12/31/17 06:54 12/31/17 06:54 Labs: Abnormal Lab Results - Last 24 Hours (Table) 12/31/17 12/31/17 01/01/18 Range/Units 17:01 21:03 07:08 POC Glucose (mg/dL) 134 H 135 H 117 H (75-99) mg/dL 01/01/18 Range/Units 11:16 POC Glucose (mg/dL) 170 H (75-99) mg/dL Microbiology - Last 24 Hours (Table) 12/30/17 01:16 Urine Culture - Final Urine,Clean Catch Strep agalactiae - (group b) Assessment and Plan (1) Headache Current Visit: Yes Status: Acute Code(s): R51 - HEADACHE SNOMED Code(s): 26452087 (2) Lupus anticoagulant disorder Current Visit: Yes Status: Acute Code(s): D68.62 - LUPUS ANTICOAGULANT SYNDROME SNOMED Code(s): 80695180 (3) Hypercoagulable state Current Visit: No Status: Chronic Code(s): D68.59 - OTHER PRIMARY THROMBOPHILIA SNOMED Code(s): 49701067 (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 Patient was sent for MRI of the brain and MRA. She also had CT MR angiogram all of the results of which are noted above. 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 She does not require any neurosurgical treatment at this time for this condition as she has good collateral circulation through the [place]. We have reviewed the results of all of the neuro imaging studies today with the patient. All of her questions are answered. 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 We are recommending that she undergo a occipital nerve block procedure for further treatment. This nerve block will be done tomorrow by anesthesia. We will need to see if this helps relieve the degree of headache pain that she has been experiencing. Once again this is not typical of heart hemiplegic migraine symptoms in the past. She is being treated for urinary tract infection and is currently on Rocephin. We will continue to follow her progress closely. Hopefully she will be able to cut back on the use of Dilaudid. Her overall prognosis at this time remains guarded.
[2018-01-01 17:09] LABS: Glucose,Whole Blood 106 mg/dL (75-99)
[2018-01-01 20:53] LABS: Glucose,Whole Blood 136 mg/dL (75-99)
[2018-01-01] MEDS: INSULIN DETEMIR 100 UNIT/ML 10 ML VIAL SQ SCH (22:08)
[2018-01-01] MEDS: PRAVASTATIN SODIUM 40 MG TAB PO SCH (22:09)
[2018-01-01] MEDS: RIVAROXABAN 10 MG TAB PO SCH (22:10)
[2018-01-01] MEDS: tiZANidine 4 MG TAB PO SCH (22:10)
[2018-01-01] MEDS: CYANOCOBALAMIN 500 MCG TAB PO SCH (22:10)
[2018-01-02] MEDS: HYDROmorphone 2 MG TAB PO PRN ×7 (02:20→23:39)
[2018-01-02] MEDS: SODIUM CHLORIDE 0.9% 1,000 ML IV SCH ×4 (02:22→22:02)
[2018-01-02] MEDS: LEVOTHYROXINE 100 MCG TAB PO SCH (06:11)
[2018-01-02] MEDS: LEVOTHYROXINE 50 MCG TAB PO SCH (06:11)
[2018-01-02 07:34] LABS: Basophils # (A) 0.1 k/uL (0-0.2); Basophils % (A) 1 %; Eosinophils # (A) 0.2 k/uL (0-0.7); Eosinophils % (A) 3 %; HGB 11.4 gm/dL (11.4-16.0); Hypochromasia Slight; Lymphocytes # (A) 1.9 k/uL (1.0-4.8); Lymphocytes % (A) 25 %; MCH 27.8 pg (25.0-35.0); MCHC 30.1 g/dL (31.0-37.0); MCV 92.5 fL (80.0-100.0); Mean Platelet Volume 6.8; Monocytes # (A) 0.5 k/uL (0-1.0); Monocytes % (A) 6 %; Neutrophils % (A) 64 %; Platelet Count 266 k/uL (150-450); RBC 4.11 m/uL (3.80-5.40); RDW 14.4 % (11.5-15.5); WBC 7.8 k/uL (3.8-10.6)
[2018-01-02 07:55] LABS: Glucose,Whole Blood 107 mg/dL (75-99)
[2018-01-02 07:59] LABS: ALT 62 U/L (9-52); AST 73 U/L (14-36); Albumin 3.8 g/dL (3.5-5.0); Alkaline Phosphatase 87 U/L (38-126); Anion Gap 12 mmol/L; Blood Urea Nitrogen 13 mg/dL (7-17); Calcium 9.5 mg/dL (8.4-10.2); Carbon Dioxide 21 mmol/L (22-30); Chloride 109 mmol/L (98-107); Glucose 115 mg/dL (74-99); Potassium 3.9 mmol/L (3.5-5.1); Sodium 142 mmol/L (137-145); Total Bilirubin 0.2 mg/dL (0.2-1.3); Total Protein 6.3 g/dL (6.3-8.2)
[2018-01-02] MEDS: INSULIN ASPART 100 UNIT/ML 1 ML 10 ML VIAL SQ SCH ×4 (08:18→20:48)
[2018-01-02] MEDS: METOCLOPRAMIDE 10 MG TAB PO SCH ×4 (08:45→20:18)
[2018-01-02] MEDS: FAMOTIDINE 20 MG TAB PO SCH ×2 (08:45→20:18)
[2018-01-02] MEDS: FERROUS SULFATE 325 MG TAB PO SCH ×2 (08:45→20:18)
[2018-01-02] MEDS: cefTRIAXone IN SWFI 1,000 MG/10 ML SYRINGE IVP SCH (08:45)
[2018-01-02] MEDS: TOPIRAMATE 25 MG TAB PO SCH ×2 (08:45→20:16)
[2018-01-02] MEDS: METOPROLOL SUCCINATE (ER) 100 MG TAB.ER.24H PO SCH (08:45)
--- NOTE | 2018-01-02 10:26 | P.PN ---
Progress Note - Text Progress Note Date: 01/02/18 The patient has been taking Xarelto and that's why I'm going to cancel the recently scheduled occipital nerve block. Even though this injection is considered superficial ,however the scalp is very vascular and there is some risk of creating the subcutaneous hematoma especially with bilateral injections and that's why I prefer to wait on this injection and to the patient is able to hold her Xarelto for 3 days. Meanwhile, the patient can be managed by her neurologist medically.
--- NOTE | 2018-01-02 11:28 | P.PN ---
Subjective Progress Note Date: 01/02/18 patient is a 37-year-old female who presented to [facility] emergency room with a chief complaint of severe headache she was evaluated in the emergency room she had low-grade fever, and due to the severity of her headache and to her abnormal previous testing decision was made to proceed with admitting her to medical floor for further evaluation and treatment. Patient initially started having headaches about 10 days ago, prior to that she only had episodes of migraine headache, however 10 days ago she started having different kind of headache that was constant and severe, she presented to emergency room at that time and had a CT angiogram of her head which revealed anterior cerebral arteries appear to feel entirely from the right side without any evidence of intracranial aneurysm or stenosis, at that time she was discharged home, she presented to our office as a new patient, arrangement where made for her for follow-up MRI and neurology appointment however she presented again to emergency room with worsening severe headache prior to having any chance to have any testing as outpatient and decision was made to proceed with admission and inpatient testing and neurology consultation. On presentation patient had low-grade fever of 100, white blood count was slightly elevated at 12.5, due to the severe headache and low-grade fever patient was started on Rocephin 1 g IV every 24 hours and consultation for infectious disease was initiated. 01/02/2018 patient is still complaining of headache. Pain service evaluated patient for occipital nerve block. However, patient takes Xarelto. The recommending that that needs to be on hold for 3 days prior to procedure. At this time the recommending neurology for pain control. Neurology is following patient. Mildly elevated LFTs with some right upper quadrant abdominal pain. Hepatitis panel negative. Objective - Vital Signs Vital signs: Vital Signs Temp 97.6 F 01/02/18 07:00 Pulse 64 01/02/18 08:00 Resp 16 01/02/18 08:00 BP 127/85 01/02/18 07:00 Pulse Ox 96 01/02/18 07:00 Intake & Output 01/01/18 01/02/18 01/02/18 18:59 06:59 18:59 Intake Total 700 1500 Balance 700 1500 Weight 108.862 kg Intake: Intake, IV Titration 700 1500 Amount Sodium Chloride 0.9% 1, 700 1500 000 ml @ 100 mls/hr IV . Q10H [facility] Rx#:[id number] Other: Voiding Method Toilet Toilet Toilet # Voids 2 - Labs CBC & Chem 7: 01/02/18 07:08 01/02/18 07:08 Labs: Abnormal Lab Results - Last 24 Hours (Table) 12/30/17 01/01/18 01/01/18 Range/Units 01:16 17:07 20:51 MCHC (31.0-37.0) g/dL Chloride (98-107) mmol/L Carbon Dioxide (22-30) mmol/L Glucose (74-99) mg/dL POC Glucose (mg/dL) 106 H 136 H (75-99) mg/dL Hemoglobin A1c 6.8 H (4.0-6.0) % AST (14-36) U/L ALT (9-52) U/L 01/02/18 01/02/18 01/02/18 Range/Units 07:08 07:08 07:52 MCHC 30.1 L (31.0-37.0) g/dL Chloride 109 H (98-107) mmol/L Carbon Dioxide 21 L (22-30) mmol/L Glucose 115 H (74-99) mg/dL POC Glucose (mg/dL) 107 H (75-99) mg/dL Hemoglobin A1c (4.0-6.0) % AST 73 H (14-36) U/L ALT 62 H (9-52) U/L Assessment and Plan Assessment: 1. Severe headache with occipital neuritis. Unable to have nerve block due to being on Xarelto. Continue his current pain medication. Await further neurology recommendations. 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 Continue was current medication at this time 2. UTI: Urine culture growing strep Agalactiae group B .Currently on Rocephin. Infectious disease recommending Ceftin at discharge 3. Lupus anticoagulant disorder: On Xarelto 4. Mitochondrial DNA depletion syndrome 5. Elevated LFTs with mild right upper quadrant abdominal pain. Pravastatin discontinued. Hepatitis panel negative. Abdominal ultrasound from 10/24/2017 had shown an anatomically coarsened echo pattern which is nonspecific to be seen with fatty infiltration, diffuse apparently disease or hepatitis I performed an examination of the patient and discussed their management with the physician Director Of [employer]. I have reviewed the Physician Director Of [employer]'s notes and agree with the documented findings and plan of care
[2018-01-02 11:42] LABS: Glucose,Whole Blood 128 mg/dL (75-99)
[2018-01-02] MEDS: ONDANSETRON 4 MG/2 ML VIAL IVP PRN (16:44)
[2018-01-02] MEDS ORDERED: traMADol 50 MG TAB PO STA ×2 (17:08→17:37)
[2018-01-02 17:17] LABS: Glucose,Whole Blood 117 mg/dL (75-99)
--- NOTE | 2018-01-02 18:05 | P.PN ---
Subjective Progress Note Date: 01/02/18 This patient is a 37-year-old female who was admitted to hospital with symptoms of headache and abnormal CTA angiogram. Patient subsequent is undergone MRI MRA study which we have reviewed the results with the patient in detail. MRI was negative for any acute stroke or other changes. 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 Patient continues to have occipital headache pain. Anesthesia was consulted today for possible occipital nerve block procedure. Unfortunately the patient is on Xarelto for treatment of lupus anticoagulant disorder. She would have to come off of Xarelto for 3 days to undergo this nerve block procedure. We explained the risk of discontinuation of Xarelto and the patient does not wish to stop the Xarelto due to the risk involved. We have suggested as an alternative the patient may try a K pad to the back of the head and neck. We will also give her a dose of Ultram to see if this helps relieve some of the muscle tension pain. She has used Ultram in the past. We will see if this combination is of some benefit for her. As noted we would not recommend she discontinue Xarelto at this time due to the risk of coagulation and coagulopathy problems. Patient agrees and she will continue on Xarelto for treatment of the lupus anticoagulant disorder. Patient has been also experiencing nausea and abdominal symptoms. Apparently she has multiple gastrointestinal conditions which have been treated at [facility] in the past. Due to her multiple complex medical issues at this time we would recommend to increase activity as she tolerates. She states she is wanting complete relief of the headache pain prior to discharge however this may not be feasible as she is unable to have occipital nerve block procedure due to her taking Xarelto for lupus anticoagulant disorder. We've explained this in detail with the patient today. We will continue to monitor her condition closely. Her overall prognosis at this time remains guarded. Objective - Vital Signs Vital signs: Vital Signs Temp 99.6 F 01/02/18 15:00 Pulse 64 01/02/18 15:22 Resp 16 01/02/18 15:22 BP 130/84 01/02/18 15:00 Pulse Ox 100 01/02/18 15:00 Intake & Output 01/01/18 01/02/18 01/02/18 18:59 06:59 18:59 Intake Total 700 1500 1180 Balance 700 1500 1180 Weight 108.862 kg Intake: Intake, IV Titration 700 1500 700 Amount Sodium Chloride 0.9% 1, 700 1500 700 000 ml @ 100 mls/hr IV . Q10H [facility] Rx#:[id number] Oral 480 Other: Voiding Method Toilet Toilet Toilet # Voids 2 - Exam Physical examination: PHYSICAL EXAMINATION: Patient is resting comfortably in bed. VITAL SIGNS: Blood pressure is [130/84]. Heart rate is [84]. Respiration is [16] . Temperature is [99.6]. HEENT: Head is atraumatic, neck is supple, there were no carotid bruits. CHEST: Lungs are clear to auscultation and percussion. CARDIAC: S1, S2 normal rate and rhythm. There is no murmur. ABDOMEN: Soft and nontender. Bowel sounds are present. EXTREMITIES: There is no pedal edema. Peripheral pulses are present. Neurological examination: Patient has a nonfocal neurological examination today. 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 - Labs CBC & Chem 7: 01/02/18 07:08 01/02/18 07:08 Labs: Abnormal Lab Results - Last 24 Hours (Table) 12/30/17 01/01/18 01/02/18 Range/Units 01:16 20:51 07:08 MCHC 30.1 L (31.0-37.0) g/dL Chloride (98-107) mmol/L Carbon Dioxide (22-30) mmol/L Glucose (74-99) mg/dL POC Glucose (mg/dL) 136 H (75-99) mg/dL Hemoglobin A1c 6.8 H (4.0-6.0) % AST (14-36) U/L ALT (9-52) U/L 01/02/18 01/02/18 01/02/18 Range/Units 07:08 07:52 11:36 MCHC (31.0-37.0) g/dL Chloride 109 H (98-107) mmol/L Carbon Dioxide 21 L (22-30) mmol/L Glucose 115 H (74-99) mg/dL POC Glucose (mg/dL) 107 H 128 H (75-99) mg/dL Hemoglobin A1c (4.0-6.0) % AST 73 H (14-36) U/L ALT 62 H (9-52) U/L 01/02/18 Range/Units 17:11 MCHC (31.0-37.0) g/dL Chloride (98-107) mmol/L Carbon Dioxide (22-30) mmol/L Glucose (74-99) mg/dL POC Glucose (mg/dL) 117 H (75-99) mg/dL Hemoglobin A1c (4.0-6.0) % AST (14-36) U/L ALT (9-52) U/L Assessment and Plan (1) Headache Current Visit: Yes Status: Acute Code(s): R51 - HEADACHE SNOMED Code(s): 79098504 (2) Lupus anticoagulant disorder Current Visit: Yes Status: Acute Code(s): D68.62 - LUPUS ANTICOAGULANT SYNDROME SNOMED Code(s): 17249426 (3) Hypercoagulable state Current Visit: No Status: Chronic Code(s): D68.59 - OTHER PRIMARY THROMBOPHILIA SNOMED Code(s): 90282143 (4) Mitochondrial DNA depletion syndrome Current Visit: No Status: Chronic Code(s): E88.49 - OTHER MITOCHONDRIAL METABOLISM DISORDERS SNOMED Code(s): 936863123 Plan: This patient is a 37-year-old female being evaluated for headache pain. She was seen by anesthesia today and is unable to undergo occipital nerve block procedures she is on Xarelto for treatment of lupus anticoagulant disorder. She would have to discontinue Xarelto for 3 days and we have not recommending that be done for her at this time. She is at risk and we would not recommend the nerve block procedure at this time. We have suggested the patient to try using a K pad to the head and neck region. We will also give her a trial of Ultram to see if this helps break the headache cycle. Patient is more anxious about going home with recurrent nausea vomiting and headache. She has a rather extensive history of gastrointestinal problems which has been followed up at [facility] in the past. We will continue close monitoring of the patient. She is being treated for urinary tract infection. She is currently on Rocephin. We will continue to follow her closely during this admission. Patient is aware that we are limited in providing any further treatment option for the occipital neuritis at this time. We will continue to follow her progress closely.
[2018-01-02] MEDS: CYANOCOBALAMIN 500 MCG TAB PO SCH (20:17)
[2018-01-02] MEDS: tiZANidine 4 MG TAB PO SCH (20:18)
[2018-01-02] MEDS: RIVAROXABAN 10 MG TAB PO SCH (20:18)
[2018-01-02 20:21] LABS: Glucose,Whole Blood 145 mg/dL (75-99)
[2018-01-02] MEDS: INSULIN DETEMIR 100 UNIT/ML 10 ML VIAL SQ SCH (20:48)
--- NOTE | 2018-01-02 23:09 | P.PN ---
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 She has a lupus-like syndrome. And has progressive dysautonomia which is directly affecting her ability to ambulate. She also has a history of hemiplegic migraines but current headace is very different than her hemiplegic migraines. It is bifrontal and associated with pressure and feels quite poorly. She did have a headache somewhat similar earlier this year. He has noted she's had difficulty with the deep venous thrombosis the left arm and is being treated with Xarelto. Is the patient has a very complex past medical history. Because of her current symptoms computed tomography scan was performed that shows evidence of the abnormality in that the right vertebral artery is dominant in the left vertebral artery is very small in size. Patient does have a prior CT angiogram which did not reveal aneurysm. Patient feeling better today. Fevers improved. She is reading a book on her [employer] with improvement of her headache in her vision. Denies further significant fever chill or rigor. Has been seen by neurology with plans to diminish her pain medications. Objective - Vital Signs Vital signs: Vital Signs Temp 99.6 F 01/02/18 15:00 Pulse 64 01/02/18 15:22 Resp 16 01/02/18 15:22 BP 130/84 01/02/18 15:00 Pulse Ox 100 01/02/18 15:00 Intake & Output 01/02/18 01/02/18 01/03/18 06:59 18:59 06:59 Intake Total 1500 1180 Balance 1500 1180 Weight 108.862 kg Intake: Intake, IV Titration 1500 700 Amount Sodium Chloride 0.9% 1, 1500 700 000 ml @ 100 mls/hr IV . Q10H [facility] Rx#:[id number] Oral 480 Other: Voiding Method Toilet Toilet # Voids 2 - Exam 37-year-old female with 26 ER visits in the last 3 years HEENT: Anicteric conjunctiva are pink and moist nasal mucosa grossly intact without significant lesions, there is no thrush. Neck: The neck is supple, no significant stiffness is noted without significant lymphadenopathy or thyromegaly. Lungs: Good bilateral air entry without significant crackles or wheezing. There is no significant bronchial sounds. There is no egophony or dullness. Heart: Regular rate and rhythm with an audible S1-S2, no S3 no S4. There is no significant murmur click or rub, PMI was nondisplaced. Abdomen: Positive bowel sounds soft and nontender without palpable masses or organomegaly. There was no guarding or rebound. Extremities: The upper extremities have excellent pulses they are symmetric, no significant petechiae or telangiectasia. No splinter hemorrhages were noted. The lower extremities are free from significant edema. The peripheral pulses were 2+ and symmetric. Neuro: Awake alert oriented to person place and time. She complains of generalized weakness. She is able to follow all simple commands. Feeling better today much less headache improved ability to ambulate and move - Labs CBC & Chem 7: 01/02/18 07:08 01/02/18 07:08 Labs: Abnormal Lab Results - Last 24 Hours (Table) 01/02/18 01/02/18 01/02/18 Range/Units 07:08 07:08 07:52 MCHC 30.1 L (31.0-37.0) g/dL Chloride 109 H (98-107) mmol/L Carbon Dioxide 21 L (22-30) mmol/L Glucose 115 H (74-99) mg/dL POC Glucose (mg/dL) 107 H (75-99) mg/dL AST 73 H (14-36) U/L ALT 62 H (9-52) U/L 01/02/18 01/02/18 01/02/18 Range/Units 11:36 17:11 20:14 MCHC (31.0-37.0) g/dL Chloride (98-107) mmol/L Carbon Dioxide (22-30) mmol/L Glucose (74-99) mg/dL POC Glucose (mg/dL) 128 H 117 H 145 H (75-99) mg/dL AST (14-36) U/L ALT (9-52) U/L Laboratory Results WBC 7.8 k/uL (3.8-10.6) 01/02/18 07:08 RBC 4.11 m/uL (3.80-5.40) 01/02/18 07:08 Hgb 11.4 gm/dL (11.4-16.0) 01/02/18 07:08 Hct 38.0 % (34.0-46.0) 01/02/18 07:08 MCV 92.5 fL (80.0-100.0) 01/02/18 07:08 MCH 27.8 pg (25.0-35.0) 01/02/18 07:08 MCHC 30.1 g/dL (31.0-37.0) L 01/02/18 07:08 RDW 14.4 % (11.5-15.5) 01/02/18 07:08 Plt Count 266 k/uL (150-450) 01/02/18 07:08 Neutrophils % 64 % 01/02/18 07:08 Lymphocytes % 25 % 01/02/18 07:08 Monocytes % 6 % 01/02/18 07:08 Eosinophils % 3 % 01/02/18 07:08 Basophils % 1 % 01/02/18 07:08 Neutrophils # 5.0 k/uL (1.3-7.7) 01/02/18 07:08 Lymphocytes # 1.9 k/uL (1.0-4.8) 01/02/18 07:08 Monocytes # 0.5 k/uL (0-1.0) 01/02/18 07:08 Eosinophils # 0.2 k/uL (0-0.7) 01/02/18 07:08 Basophils # 0.1 k/uL (0-0.2) 01/02/18 07:08 Hypochromasia Slight 01/02/18 07:08 PT 10.5 sec (9.0-12.0) 12/30/17 01:16 INR 1.1 (<1.2) 12/30/17 01:16 APTT 29.3 sec (22.0-30.0) 12/30/17 01:16 Sodium 142 mmol/L (137-145) 01/02/18 07:08 Potassium 3.9 mmol/L (3.5-5.1) 01/02/18 07:08 Chloride 109 mmol/L (98-107) H 01/02/18 07:08 Carbon Dioxide 21 mmol/L (22-30) L 01/02/18 07:08 Anion Gap 12 mmol/L 01/02/18 07:08 BUN 13 mg/dL (7-17) 01/02/18 07:08 Creatinine 0.69 mg/dL (0.52-1.04) 01/02/18 07:08 Est GFR (MDRD) Af Amer >60 (>60 ml/min/1.73 sqM) 01/02/18 07:08 Est GFR (MDRD) Non-Af >60 (>60 ml/min/1.73 sqM) 01/02/18 07:08 Glucose 115 mg/dL (74-99) H 01/02/18 07:08 POC Glucose (mg/dL) 145 mg/dL (75-99) H 01/02/18 20:14 POC Glu Shoe Associate ID Bisi [facility] 01/02/18 20:[address] Glu mg/dL 148 12/30/17 01:16 Hemoglobin A1c 6.8 % (4.0-6.0) H 12/30/17 01:16 Calcium 9.5 mg/dL (8.4-10.2) 01/02/18 07:08 Total Bilirubin 0.2 mg/dL (0.2-1.3) 01/02/18 07:08 AST 73 U/L (14-36) H 01/02/18 07:08 ALT 62 U/L (9-52) H 01/02/18 07:08 Alkaline Phosphatase 87 U/L (38-126) 01/02/18 07:08 Total Protein 6.3 g/dL (6.3-8.2) 01/02/18 07:08 Albumin 3.8 g/dL (3.5-5.0) 01/02/18 07:08 Urine Color Yellow 12/30/17 01:16 Urine Appearance Cloudy (Clear) H 12/30/17 01:16 Urine pH 6.0 (5.0-8.0) 12/30/17 01:16 Ur Specific Ava 1.020 (1.001-1.035) 12/30/17 01:16 Urine Protein Trace (Negative) H 12/30/17 01:16 Urine Glucose (UA) Negative (Negative) 12/30/17 01:16 Urine Ketones Negative (Negative) 12/30/17 01:16 Urine Blood Negative (Negative) 12/30/17 01:16 Urine Nitrite Negative (Negative) 12/30/17 01:16 Urine Bilirubin Negative (Negative) 02/09/18 01:16 Urine Urobilinogen <2.0 mg/dL (<2.0) 12/30/17 01:16 Ur Leukocyte Esterase Trace (Negative) H 12/30/17 01:16 Urine RBC 1 /hpf (0-5) 12/30/17 01:16 Urine WBC 9 /hpf (0-5) H 12/30/17 01:16 Urine WBC Clumps Rare /hpf (None) H 12/30/17 01:16 Ur Squamous Epith Cells 6 /hpf (0-4) H 12/30/17 01:16 Urine Bacteria Rare /hpf (None) H 12/30/17 01:16 Microbiology 12/30/17 01:16 Urine,Clean Catch Urine Culture - Final Strep agalactiae - (group b) Hyaline Casts 1 /lpf (0-2) 12/30/17 01:16 Urine Mucus Rare /hpf (None) H 12/30/17 01:16 Hepatitis A IgM Ab Non-Reactive (Non-Reactive) 12/31/17 06:54 Hep Bs Antigen Non-Reactive (Non-Reactive) 12/31/17 06:54 Hep B Core IgM Ab Non-Reactive (Non-Reactive) 12/31/17 06:54 Hep C IgG Ab Non-Reactive (Non-Reactive) 12/31/17 06:54 Influenza Type A RNA Not Detected (Not Detectd) 12/30/17 00:13 Influenza Type B (PCR) Not Detected (Not Detectd) 12/30/17 00:13 Assessment and Plan (1) Headache Narrative/Plan: 37-year-old female presents to the emergency center complaining of significant headache that is quite different than her hemiplegic migraines that she often suffers from. Is complaining of bifrontal headache associated with pressure. She really she's had a fever at home with some chills without ester rigor. May have had a sweat. With the headache she's had some nausea without much emesis. No hematemesis melena or hematochezia. She's not having any acute neurological deficits. Influenza testing is negative, with no evidence of urinary tract infection or pneumonia. Does not have classic signs of meningitis or meningismus. Neurological evaluation is in process and a MRI/MRA has been requested to further characterize her vascular status given the abnormality that were seen with her basilar circulation. She did have a leukocytosis that is already improving, not clear the amount of outpatient steroids she was taking. There is evidence of elevated AST ALT no evidence of viral hepatitis Urine culture positive for group B strep, Rocephin continues. When she is ready for discharge to home may be transitioned to cefuroxime to finish her course of therapy. Current Visit: Yes Status: Acute Code(s): R51 - HEADACHE SNOMED Code(s): 86961790 (2) Hemiplegic migraine without status migrainosus Current Visit: No Status: Acute Code(s): G43.409 - HEMIPLEGIC MIGRAINE, NOT INTRACTABLE, W/O STATUS MIGRAINOSUS SNOMED Code(s): 78934638 (3) Mitochondrial DNA depletion syndrome Current Visit: No Status: Chronic Code(s): E88.49 - OTHER MITOCHONDRIAL METABOLISM DISORDERS SNOMED Code(s): 249578944
[2018-01-03] MEDS: HYDROmorphone 2 MG TAB PO PRN ×4 (04:28→21:49)
[2018-01-03] MEDS: LEVOTHYROXINE 50 MCG TAB PO SCH (06:13)
[2018-01-03] MEDS: LEVOTHYROXINE 100 MCG TAB PO SCH (06:13)
[2018-01-03 07:22] LABS: Glucose,Whole Blood 119 mg/dL (75-99)
[2018-01-03] MEDS: SODIUM CHLORIDE 0.9% 1,000 ML IV SCH ×3 (07:55→17:36)
[2018-01-03] MEDS: INSULIN ASPART 100 UNIT/ML 1 ML 10 ML VIAL SQ SCH ×4 (07:56→21:41)
[2018-01-03] MEDS: FERROUS SULFATE 325 MG TAB PO SCH ×2 (07:57→21:51)
[2018-01-03] MEDS: METOCLOPRAMIDE 10 MG TAB PO SCH ×4 (07:57→21:51)
[2018-01-03] MEDS: METOPROLOL SUCCINATE (ER) 100 MG TAB.ER.24H PO SCH (07:58)
[2018-01-03] MEDS: TOPIRAMATE 25 MG TAB PO SCH ×2 (07:58→21:53)
[2018-01-03] MEDS: FAMOTIDINE 20 MG TAB PO SCH ×2 (07:58→21:51)
[2018-01-03] MEDS: cefTRIAXone IN SWFI 1,000 MG/10 ML SYRINGE IVP SCH (07:59)
[2018-01-03] MEDS: ONDANSETRON 4 MG/2 ML VIAL IVP PRN (08:33)
[2018-01-03 08:36] LABS: Basophils # (A) 0.1 k/uL (0-0.2); Basophils % (A) 1 %; Eosinophils # (A) 0.2 k/uL (0-0.7); Eosinophils % (A) 3 %; HCT 38.8 % (34.0-46.0); HGB 12.1 gm/dL (11.4-16.0); Lymphocytes # (A) 1.8 k/uL (1.0-4.8); Lymphocytes % (A) 20 %; MCH 28.4 pg (25.0-35.0); MCHC 31.2 g/dL (31.0-37.0); MCV 90.9 fL (80.0-100.0); Mean Platelet Volume 6.9; Monocytes # (A) 0.5 k/uL (0-1.0); Monocytes % (A) 6 %; Neutrophils # (A) 6.1 k/uL (1.3-7.7); Neutrophils % (A) 69 %; Platelet Count 304 k/uL (150-450); RBC 4.27 m/uL (3.80-5.40); RDW 14.2 % (11.5-15.5); WBC 8.8 k/uL (3.8-10.6)
[2018-01-03 08:58] LABS: ALT 71 U/L (9-52); AST 68 U/L (14-36); Albumin 3.9 g/dL (3.5-5.0); Alkaline Phosphatase 90 U/L (38-126); Anion Gap 13 mmol/L; Blood Urea Nitrogen 10 mg/dL (7-17); Calcium 9.5 mg/dL (8.4-10.2); Carbon Dioxide 19 mmol/L (22-30); Chloride 109 mmol/L (98-107); Glucose 174 mg/dL (74-99); Potassium 3.9 mmol/L (3.5-5.1); Sodium 141 mmol/L (137-145); Total Bilirubin 0.2 mg/dL (0.2-1.3); Total Protein 6.4 g/dL (6.3-8.2)
[2018-01-03] MEDS ORDERED: BUTA/APAP/CAF/COD 50-325-40-30 CAP PO PRN (09:32)
[2018-01-03 11:23] LABS: Glucose,Whole Blood 123 mg/dL (75-99)
--- NOTE | 2018-01-03 11:23 | P.PN ---
Subjective Progress Note Date: 01/03/18 patient is a 37-year-old female who presented to [facility] emergency room with a chief complaint of severe headache she was evaluated in the emergency room she had low-grade fever, and due to the severity of her headache and to her abnormal previous testing decision was made to proceed with admitting her to medical floor for further evaluation and treatment. Patient initially started having headaches about 10 days ago, prior to that she only had episodes of migraine headache, however 10 days ago she started having different kind of headache that was constant and severe, she presented to emergency room at that time and had a CT angiogram of her head which revealed anterior cerebral arteries appear to feel entirely from the right side without any evidence of intracranial aneurysm or stenosis, at that time she was discharged home, she presented to our office as a new patient, arrangement where made for her for follow-up MRI and neurology appointment however she presented again to emergency room with worsening severe headache prior to having any chance to have any testing as outpatient and decision was made to proceed with admission and inpatient testing and neurology consultation. On presentation patient had low-grade fever of 100, white blood count was slightly elevated at 12.5, due to the severe headache and low-grade fever patient was started on Rocephin 1 g IV every 24 hours and consultation for infectious disease was initiated. 01/02/2018 patient is still complaining of headache. Pain service evaluated patient for occipital nerve block. However, patient takes Xarelto. The recommending that that needs to be on hold for 3 days prior to procedure. At this time the recommending neurology for pain control. Neurology is following patient. Mildly elevated LFTs with some right upper quadrant abdominal pain. Hepatitis panel negative. 01/03/2018 patient was started on Ultram yesterday. The Ultram did not improve her arthritic at all. She had still been using the Dilaudid. Patient reports that she has used Fioricet in the past for her headaches with improvement. This will be ordered in chart. Patient complaining of constipation, Colace as been started Objective - Vital Signs Vital signs: Vital Signs Temp 97.2 F L 01/03/18 07:00 Pulse 70 01/03/18 08:00 Resp 18 01/03/18 08:00 BP 124/70 01/03/18 07:00 Pulse Ox 96 01/03/18 07:00 Intake & Output 01/02/18 01/03/18 01/03/18 18:59 06:59 18:59 Intake Total 1180 1300 Balance 1180 1300 Weight 108.862 kg 108.862 kg 108.862 kg Intake: Intake, IV Titration 700 1200 Amount Sodium Chloride 0.9% 1, 700 1200 000 ml @ 100 mls/hr IV . Q10H [facility] Rx#:[id number] Oral 480 100 Other: Voiding Method Toilet Toilet Toilet # Voids 1 - Exam Head normocephalic Neck supple Lungs clear to auscultation bilaterally no wheezing or crackles Heart regular rate and rhythm S1-S2, no rub or gallop Abdomen is soft nontender nondistended positive bowel sounds no hepatosplenomegaly Extremities no edema Neuro alert and orientated to 3 - Labs CBC & Chem 7: 01/03/18 08:02 01/03/18 08:02 Labs: Abnormal Lab Results - Last 24 Hours (Table) 01/02/18 01/02/18 01/02/18 Range/Units 11:36 17:11 20:14 Chloride (98-107) mmol/L Carbon Dioxide (22-30) mmol/L Glucose (74-99) mg/dL POC Glucose (mg/dL) 128 H 117 H 145 H (75-99) mg/dL AST (14-36) U/L ALT (9-52) U/L 01/03/18 01/03/18 Range/Units 07:14 08:02 Chloride 109 H (98-107) mmol/L Carbon Dioxide 19 L (22-30) mmol/L Glucose 174 H (74-99) mg/dL POC Glucose (mg/dL) 119 H (75-99) mg/dL AST 68 H (14-36) U/L ALT 71 H (9-52) U/L Assessment and Plan Assessment: 1. Severe headache with occipital neuritis. Unable to have nerve block due to being on Xarelto. 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 Patient was seen by neurology. Ultram was added with no improvement. At this time we'll try Fioricet and monitor 2. UTI: Urine culture growing strep Agalactiae group B .Currently on Rocephin. Infectious disease recommending Ceftin at discharge 3. Lupus anticoagulant disorder: On Xarelto 4. Mitochondrial DNA depletion syndrome 5. Elevated LFTs with mild right upper quadrant abdominal pain. Pravastatin discontinued. Hepatitis panel negative. Abdominal ultrasound from 10/24/2017 had shown an anatomically coarsened echo pattern which is nonspecific likely related to fatty liver disease. Continue to monitor LFTs. AST 68 and ALT 71 If headache has improved anticipate discharge possibly tomorrow I performed an examination of the patient and discussed their management with the physician Supervisor Cytology. I have reviewed the Physician Supervisor Cytology's notes and agree with the documented findings and plan of care
[2018-01-03] MEDS: DOCUSATE 100 MG CAP PO SCH ×2 (12:19→21:51)
[2018-01-03] MEDS: ONDANSETRON 4 MG TAB PO PRN (12:19)
[2018-01-03] MEDS: HYDROcodone/APAP 5-325MG 1 EACH TAB PO PRN ×2 (14:23→17:33)
--- NOTE | 2018-01-03 17:02 | P.PN ---
Subjective Progress Note Date: 01/03/18 This patient is a 37-year-old female who was admitted to hospital with symptoms of headache and abnormal CTA angiogram. Patient subsequent is undergone MRI MRA study which we have reviewed the results with the patient in detail. MRI was negative for any acute stroke or other changes. 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 Patient continues to have occipital headache pain. Anesthesia was consulted today for possible occipital nerve block procedure. Unfortunately the patient is on Xarelto for treatment of lupus anticoagulant disorder. She would have to come off of Xarelto for 3 days to undergo this nerve block procedure. We explained the risk of discontinuation of Xarelto and the patient does not wish to stop the Xarelto due to the risk involved. We have suggested as an alternative the patient may try a K pad to the back of the head and neck. We will also give her a dose of Ultram to see if this helps relieve some of the muscle tension pain. She has used Ultram in the past. We will see if this combination is of some benefit for her. As noted we would not recommend she discontinue Xarelto at this time due to the risk of coagulation and coagulopathy problems. Patient agrees and she will continue on Xarelto for treatment of the lupus anticoagulant disorder. Patient has been also experiencing nausea and abdominal symptoms. Apparently she has multiple gastrointestinal conditions which have been treated at [facility] in the past. Due to her multiple complex medical issues at this time we would recommend to increase activity as she tolerates. She states she is wanting complete relief of the headache pain prior to discharge however this may not be feasible as she is unable to have occipital nerve block procedure due to her taking Xarelto for lupus anticoagulant disorder. We have explained this in detail with the patient today. The patient was given Ultram yesterday however it was not of help for headache management. We did discuss her findings today with the physician graduate assistant athletic trainer Karla Barragan and we have explained that she is not a candidate for injection therapy for the occipital neuritis due to her being on Xarelto. We suggested she try the moist heat to the head and neck region on a regular basis. She may also given a trial of [place] to see if this helps reduce the severity of her pain symptoms. Unfortunately there is no specific pain medicine that may be appropriate for her given her multiple complex medical issues. We have recommended that she be considered for discharge home soon. She is also requiring Tigan which apparently she was not receiving and this is being adjusted as well. We will continue to monitor her condition closely. Her overall prognosis at this time remains guarded. Objective - Vital Signs Vital signs: Vital Signs Temp 97.2 F L 01/03/18 07:00 Pulse 70 01/03/18 08:00 Resp 18 01/03/18 08:00 BP 124/70 01/03/18 07:00 Pulse Ox 96 01/03/18 07:00 Intake & Output 01/02/18 01/03/18 01/03/18 18:59 06:59 18:59 Intake Total 1180 1300 700 Balance 1180 1300 700 Weight 108.862 kg 108.862 kg 108.862 kg Intake: Intake, IV Titration 700 1200 700 Amount Sodium Chloride 0.9% 1, 700 1200 700 000 ml @ 100 mls/hr IV . Q10H [facility] Rx#:[id number] Oral 480 100 Other: Voiding Method Toilet Toilet Toilet # Voids 1 - Exam Physical examination: PHYSICAL EXAMINATION: Patient is resting comfortably in bed. VITAL SIGNS: Blood pressure is [124/70]. Heart rate is [70]. Respiration is [18] . Temperature is [97.2]. HEENT: Head is atraumatic, neck is supple, there were no carotid bruits. CHEST: Lungs are clear to auscultation and percussion. CARDIAC: S1, S2 normal rate and rhythm. There is no murmur. ABDOMEN: Soft and nontender. Bowel sounds are present. EXTREMITIES: There is no pedal edema. Peripheral pulses are present. Neurological examination: Patient has a nonfocal neurological examination today. 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 - Labs CBC & Chem 7: 01/03/18 08:02 01/03/18 08:02 Labs: Abnormal Lab Results - Last 24 Hours (Table) 01/02/18 01/02/18 01/03/18 Range/Units 17:11 20:14 07:14 Chloride (98-107) mmol/L Carbon Dioxide (22-30) mmol/L Glucose (74-99) mg/dL POC Glucose (mg/dL) 117 H 145 H 119 H (75-99) mg/dL AST (14-36) U/L ALT (9-52) U/L 01/03/18 01/03/18 Range/Units 08:02 11:16 Chloride 109 H (98-107) mmol/L Carbon Dioxide 19 L (22-30) mmol/L Glucose 174 H (74-99) mg/dL POC Glucose (mg/dL) 123 H (75-99) mg/dL AST 68 H (14-36) U/L ALT 71 H (9-52) U/L Assessment and Plan (1) Headache Current Visit: Yes Status: Acute Code(s): R51 - HEADACHE SNOMED Code(s): 10644079 (2) Lupus anticoagulant disorder Current Visit: Yes Status: Acute Code(s): D68.62 - LUPUS ANTICOAGULANT SYNDROME SNOMED Code(s): 54131959 (3) Hypercoagulable state Current Visit: No Status: Chronic Code(s): D68.59 - OTHER PRIMARY THROMBOPHILIA SNOMED Code(s): 72245789 (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 She was found to have evidence of occipital neuritis. There was also question on her initial CT angiogram of some abnormalities. She underwent MRI/MRA results of which are noted previously. MRI was negative. MRA revealed congenital changes. 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 She was evaluated by anesthesia but is not a candidate for injection therapy due to her being on Xarelto. We have recommended trial of Ultram which she did take yesterday which was not much help. She is using [place] 5 now to see if this will help reduce the severity of pain. We also recommend that she be applying moist heat to the head and neck region on a regular basis. She has also restarted on her Tigan. She does have history of severe GI problems in the past as well. She was also given a trial appears that which also did not help. Patient does not appear to be in severe distress when examined at bedside. At this time we will continue current treatment plans. Hopefully she will be stable for discharge tomorrow and follow-up as outpatient. Her overall prognosis at this time remains guarded.
[2018-01-03 17:29] LABS: Glucose,Whole Blood 102 mg/dL (75-99)
[2018-01-03] MEDS: TRIMETHOBENZAMIDE 300 MG CAP PO SCH ×2 (17:33→21:54)
[2018-01-03 20:48] LABS: Glucose,Whole Blood 120 mg/dL (75-99)
[2018-01-03] MEDS: INSULIN DETEMIR 100 UNIT/ML 10 ML VIAL SQ SCH (21:47)
[2018-01-03] MEDS: CYANOCOBALAMIN 500 MCG TAB PO SCH (21:49)
[2018-01-03] MEDS: tiZANidine 4 MG TAB PO SCH (21:52)
[2018-01-03] MEDS: RIVAROXABAN 10 MG TAB PO SCH (21:52)
[2018-01-04] MEDS: HYDROmorphone 2 MG TAB PO PRN ×6 (00:55→21:21)
[2018-01-04] MEDS: SODIUM CHLORIDE 0.9% 1,000 ML IV SCH ×2 (04:29→15:09)
[2018-01-04 06:48] LABS: Basophils # (A) 0.1 k/uL (0-0.2); Basophils % (A) 1 %; Eosinophils # (A) 0.2 k/uL (0-0.7); Eosinophils % (A) 3 %; HCT 37.7 % (34.0-46.0); HGB 11.7 gm/dL (11.4-16.0); Lymphocytes % (A) 25 %; MCV 90.2 fL (80.0-100.0); Mean Platelet Volume 6.8; Monocytes # (A) 0.5 k/uL (0-1.0); Monocytes % (A) 7 %; Neutrophils # (A) 4.9 k/uL (1.3-7.7); Neutrophils % (A) 62 %; Platelet Count 327 k/uL (150-450); RBC 4.18 m/uL (3.80-5.40); RDW 14.4 % (11.5-15.5); WBC 7.8 k/uL (3.8-10.6)
[2018-01-04 06:59] LABS: ALT 82 U/L (9-52); AST 69 U/L (14-36); Albumin 3.7 g/dL (3.5-5.0); Alkaline Phosphatase 84 U/L (38-126); Anion Gap 12 mmol/L; Blood Urea Nitrogen 9 mg/dL (7-17); Calcium 9.5 mg/dL (8.4-10.2); Carbon Dioxide 21 mmol/L (22-30); Chloride 111 mmol/L (98-107); Glucose 96 mg/dL (74-99); Sodium 144 mmol/L (137-145); Total Bilirubin 0.2 mg/dL (0.2-1.3); Total Protein 6.2 g/dL (6.3-8.2)
[2018-01-04 07:48] LABS: Glucose,Whole Blood 95 mg/dL (75-99)
[2018-01-04] MEDS: INSULIN ASPART 100 UNIT/ML 1 ML 10 ML VIAL SQ SCH ×4 (08:16→21:09)
[2018-01-04] MEDS: LEVOTHYROXINE 50 MCG TAB PO SCH (08:28)
[2018-01-04] MEDS: LEVOTHYROXINE 100 MCG TAB PO SCH (08:28)
[2018-01-04] MEDS: TRIMETHOBENZAMIDE 300 MG CAP PO SCH ×3 (08:28→22:16)
[2018-01-04] MEDS: METOCLOPRAMIDE 10 MG TAB PO SCH ×4 (08:29→21:10)
[2018-01-04] MEDS ORDERED: HYDROcodone/APAP 10-325MG 1 EACH TAB PO PRN (09:48)
[2018-01-04] MEDS: cefTRIAXone IN SWFI 1,000 MG/10 ML SYRINGE IVP SCH (10:37)
[2018-01-04] MEDS: FERROUS SULFATE 325 MG TAB PO SCH ×2 (10:38→21:09)
[2018-01-04] MEDS: DOCUSATE 100 MG CAP PO SCH ×2 (10:38→21:08)
[2018-01-04] MEDS: FAMOTIDINE 20 MG TAB PO SCH ×2 (10:38→21:08)
[2018-01-04] MEDS: METOPROLOL SUCCINATE (ER) 100 MG TAB.ER.24H PO SCH (10:38)
[2018-01-04] MEDS: TOPIRAMATE 25 MG TAB PO SCH ×2 (10:39→21:12)
[2018-01-04] MEDS: ONDANSETRON 4 MG TAB PO PRN (10:50)
[2018-01-04 11:59] LABS: Glucose,Whole Blood 95 mg/dL (75-99)
--- NOTE | 2018-01-04 13:03 | P.PN ---
Subjective Progress Note Date: 01/04/18 patient is a 37-year-old female who presented to [facility] emergency room with a chief complaint of severe headache she was evaluated in the emergency room she had low-grade fever, and due to the severity of her headache and to her abnormal previous testing decision was made to proceed with admitting her to medical floor for further evaluation and treatment. Patient initially started having headaches about 10 days ago, prior to that she only had episodes of migraine headache, however 10 days ago she started having different kind of headache that was constant and severe, she presented to emergency room at that time and had a CT angiogram of her head which revealed anterior cerebral arteries appear to feel entirely from the right side without any evidence of intracranial aneurysm or stenosis, at that time she was discharged home, she presented to our office as a new patient, arrangement where made for her for follow-up MRI and neurology appointment however she presented again to emergency room with worsening severe headache prior to having any chance to have any testing as outpatient and decision was made to proceed with admission and inpatient testing and neurology consultation. On presentation patient had low-grade fever of 100, white blood count was slightly elevated at 12.5, due to the severe headache and low-grade fever patient was started on Rocephin 1 g IV every 24 hours and consultation for infectious disease was initiated. On 12/31/2017 patient is alert and oriented 3 she is still having headache but improved since yesterday Wai is within normal limits white blood count has normalized, urine culture is positive for strep agalactiae Group B On 01/01/2018 patient is alert and oriented in no distress, complaining of headache and constipation otherwise no complaints 01/02/2018 patient is still complaining of headache. Pain service evaluated patient for occipital nerve block. However, patient takes Xarelto. The recommending that that needs to be on hold for 3 days prior to procedure. At this time the recommending neurology for pain control. Neurology is following patient. Mildly elevated LFTs with some right upper quadrant abdominal pain. Hepatitis panel negative. 01/03/2018 patient was started on Ultram yesterday. The Ultram did not improve her arthritic at all. She had still been using the Dilaudid. Patient reports that she has used Fioricet in the past for her headaches with improvement. This will be ordered in chart. Patient complaining of constipation, Colace as been started On 01/04/2018 patient is alert and oriented 3 she is still complaining of severe headaches that she rates at 10 out of 10 she was tried on Fioricet, Ultram, and [place] 5 mg without any significant relief at this time will increase [place] to 10 mg if patient continues to have severe headache by tomorrow will plan to transfer to a temperature to a care facility no further input from neurology or anesthesia at this time Objective - Vital Signs Vital signs: Vital Signs Temp 98.4 F 01/04/18 11:53 Pulse 68 01/04/18 11:53 Resp 20 01/04/18 11:53 BP 121/79 01/04/18 11:53 Pulse Ox 97 01/04/18 11:53 Intake & Output 01/03/18 01/04/18 01/04/18 18:59 06:59 18:59 Intake Total 700 520 Balance 700 520 Weight 108.862 kg 108.862 kg Intake: Intake, IV Titration 700 400 Amount Sodium Chloride 0.9% 1, 700 400 000 ml @ 100 mls/hr IV . Q10H JO[facility] Rx#:[id number] Oral 120 Other: Voiding Method Toilet Toilet # Voids 2 - Exam In general patient is alert and oriented 3 in no apparent distress HEENT head normocephalic and atraumatic Neck is supple no JVD no goiter no lymphadenopathy Chest exam reveals a few scattered crackles bilaterally no wheezing Cardiac exam reveals regular heart sounds S1 and S2 no gallops no murmurs Abdomen is soft nontender no organomegaly with normal bowel sounds Extremity exam reveals minimal edema neurological examination reveals no gross focal deficits cranial nerve II-12 are intact speech is fluent Gait was not tested but patient reports that she was walking fine no focal motor or sensory deficit. - Labs CBC & Chem 7: 01/04/18 06:20 01/04/18 06:20 Labs: Abnormal Lab Results - Last 24 Hours (Table) 01/03/18 01/03/18 01/04/18 Range/Units 17:22 20:46 06:20 Chloride 111 H (98-107) mmol/L Carbon Dioxide 21 L (22-30) mmol/L POC Glucose (mg/dL) 102 H 120 H (75-99) mg/dL AST 69 H (14-36) U/L ALT 82 H (9-52) U/L Total Protein 6.2 L (6.3-8.2) g/dL Assessment and Plan Plan: #1 severe headache #[address] angiogram of the brain #3 extensive past medical history including, positive lupus anticoagulant patient is maintained on Xarelto #4 low-grade fever on presentation with evidence of UTI, fever resolved patient is maintained on IV Rocephin 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 Continue was current medication at this time Start Rocephin 1 g IV every 24 hours Neurology recommending that she undergo a occipital nerve block procedure, will consult anesthesia Complaining of constipation, will give one dose of Lactulose At this time patient is still complaining of severe headache without any relief with any of the medication we have tried so far dose of [place] was increased to 10 mg every 6 hours if patient is not improving possibility of transfer to a [facility] facility in a.m. was discussed
[2018-01-04 17:38] LABS: Glucose,Whole Blood 135 mg/dL (75-99)
--- NOTE | 2018-01-04 18:25 | P.PN ---
Subjective Progress Note Date: 01/04/18 This patient is a 37 year old female admitted with severe headaches symptoms. Patient was evaluated today bedside. She seems to be in no severe discomfort. She states her headache pain is still persistent and rates it as 7/10 in intensity. She states once her oral pain medications wear off the headaches come back. Patient does have evidence of bilateral occipital neuritis. She is on Xarelto and is unable to undergo occipital nerve block procedure for this reason. She has multiple complex medical issues including history of lupus anticoagulant syndrome and multiple other complex issues. She recently underwent MRI MRA results of which have been noted on admission. MRI of the brain was normal. MRA revealed congenital changes on the anterior cerebral artery. Her headaches seem to be emanating from the severity of occipital neuritis. She has been treated with various oral pain medications with little to no relief. Patient is going to be reevaluated tomorrow by Dr. Joel and a decision will be made whether to transfer her to a tertiary center such as [facility] further further management of her headache symptoms. We would agree for this patient to undergo further evaluation if she is not responding to higher dose of pain medication overnight. We will continue to follow her progress closely during this admission. Objective - Vital Signs Vital signs: Vital Signs Temp 98.3 F 01/04/18 16:02 Pulse 87 01/04/18 16:02 Resp 20 01/04/18 16:02 BP 116/81 01/04/18 16:02 Pulse Ox 95 01/04/18 16:02 Intake & Output 01/03/18 01/04/18 01/04/18 18:59 06:59 18:59 Intake Total 700 520 Balance 700 520 Weight 108.862 kg 108.862 kg Intake: Intake, IV Titration 700 400 Amount Sodium Chloride 0.9% 1, 700 400 000 ml @ 100 mls/hr IV . Q10H [facility] Rx#:[id number] Oral 120 Other: Voiding Method Toilet Toilet # Voids 2 1 - Exam Physical examination: PHYSICAL EXAMINATION: Patient is resting comfortably in bed. VITAL SIGNS: Blood pressure is [116/81]. Heart rate is [87]. Respiration is [20] . Temperature is [98.3]. HEENT: Head is atraumatic, neck is supple, there were no carotid bruits. CHEST: Lungs are clear to auscultation and percussion. CARDIAC: S1, S2 normal rate and rhythm. There is no murmur. ABDOMEN: Soft and nontender. Bowel sounds are present. EXTREMITIES: There is no pedal edema. Peripheral pulses are present. Neurological examination: Patient has a nonfocal neurological examination today. 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 Patient is resting comfortably in bed and eating her dinner. She states her headache pain as 7/10 in intensity today. She states that once her oral pain medication wears off the headache returns with a higher degree of discomfort. - Labs CBC & Chem 7: 01/04/18 06:20 01/04/18 06:20 Labs: Abnormal Lab Results - Last 24 Hours (Table) 01/03/18 01/03/18 01/04/18 Range/Units 17:22 20:46 06:20 Chloride 111 H (98-107) mmol/L Carbon Dioxide 21 L (22-30) mmol/L POC Glucose (mg/dL) 102 H 120 H (75-99) mg/dL AST 69 H (14-36) U/L ALT 82 H (9-52) U/L Total Protein 6.2 L (6.3-8.2) g/dL Assessment and Plan (1) Headache Current Visit: Yes Status: Acute Code(s): R51 - HEADACHE SNOMED Code(s): 40860567 (2) Lupus anticoagulant disorder Current Visit: Yes Status: Acute Code(s): D68.62 - LUPUS ANTICOAGULANT SYNDROME SNOMED Code(s): 50066483 (3) Hypercoagulable state Current Visit: No Status: Chronic Code(s): D68.59 - OTHER PRIMARY THROMBOPHILIA SNOMED Code(s): 82230769 (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 Patient was admitted to hospital and did undergo MRI and MRA studies. Results have been noted previously. MRI of the brain was normal. MRA failed to reveal any evidence of aneurysm. There was congenital changes noted in the anterior cerebral artery. Patient continues to have evidence of severe bilateral headache pain. She does have findings of occipital neuritis. Anesthesia was consulted but they would not perform occipital nerve block procedure she is on Xarelto. She would need to be off of Xarelto for 3-4 days and this would be a high risk for this patient with multiple medical conditions including lupus anticoagulant disorder and mitochondrial disease. Patient was placed on higher dose of [place] today and we will need to see if she responds. Plan is for possible transfer this patient to [facility] tomorrow if she shows no significant improvement in her headaches. We would agree with this discharge planning as she is not showing much improvement in her headaches since admission. Would continue current treatment plans. She has tried various pain medications with no relief. Her overall prognosis at this time remains very guarded. This case was discussed today at length with Dr. Joel. He will reassess her tomorrow and if there is no improvement she will be transferred to [facility] for ongoing evaluation and treatment. Her overall prognosis at this time remains guarded. We will continue to follow her progress closely during this admission.
[2018-01-04 21:05] LABS: Glucose,Whole Blood 116 mg/dL (75-99)
[2018-01-04] MEDS: CYANOCOBALAMIN 500 MCG TAB PO SCH (21:08)
[2018-01-04] MEDS: INSULIN DETEMIR 100 UNIT/ML 10 ML VIAL SQ SCH (21:10)
[2018-01-04] MEDS: tiZANidine 4 MG TAB PO SCH (21:11)
[2018-01-04] MEDS: RIVAROXABAN 10 MG TAB PO SCH (21:11)
[2018-01-05] MEDS: HYDROmorphone 2 MG TAB PO PRN ×4 (00:41→13:30)
[2018-01-05] MEDS: SODIUM CHLORIDE 0.9% 1,000 ML IV SCH ×2 (00:51→09:52)
[2018-01-05 01:09] VITALS: RESP 18
[2018-01-05] MEDS: LEVOTHYROXINE 100 MCG TAB PO SCH (06:33)
[2018-01-05] MEDS: LEVOTHYROXINE 50 MCG TAB PO SCH (06:33)
[2018-01-05 07:02] LABS: Basophils # (A) 0.1 k/uL (0-0.2); Basophils % (A) 1 %; Eosinophils # (A) 0.2 k/uL (0-0.7); Eosinophils % (A) 3 %; HCT 40.1 % (34.0-46.0); HGB 12.1 gm/dL (11.4-16.0); Lymphocytes # (A) 2.3 k/uL (1.0-4.8); Lymphocytes % (A) 29 %; MCH 27.8 pg (25.0-35.0); MCHC 30.2 g/dL (31.0-37.0); Mean Platelet Volume 6.6; Monocytes # (A) 0.5 k/uL (0-1.0); Monocytes % (A) 7 %; Neutrophils # (A) 4.8 k/uL (1.3-7.7); Neutrophils % (A) 60 %; Platelet Count 289 k/uL (150-450); RBC 4.35 m/uL (3.80-5.40); RDW 14.6 % (11.5-15.5)
[2018-01-05 07:17] LABS: Glucose,Whole Blood 97 mg/dL (75-99)
[2018-01-05] MEDS: INSULIN ASPART 100 UNIT/ML 1 ML 10 ML VIAL SQ SCH ×2 (07:24→12:09)
[2018-01-05] MEDS: METOCLOPRAMIDE 10 MG TAB PO SCH ×2 (07:38→12:14)
[2018-01-05 07:39] LABS: ALT 74 U/L (9-52); AST 49 U/L (14-36); Albumin 3.9 g/dL (3.5-5.0); Alkaline Phosphatase 95 U/L (38-126); Anion Gap 13 mmol/L; Blood Urea Nitrogen 11 mg/dL (7-17); Carbon Dioxide 20 mmol/L (22-30); Chloride 109 mmol/L (98-107); Glucose 104 mg/dL (74-99); Potassium 4.2 mmol/L (3.5-5.1); Sodium 142 mmol/L (137-145); Total Bilirubin 0.3 mg/dL (0.2-1.3); Total Protein 6.5 g/dL (6.3-8.2)
[2018-01-05] MEDS: TOPIRAMATE 25 MG TAB PO SCH (08:49)
[2018-01-05] MEDS: cefTRIAXone IN SWFI 1,000 MG/10 ML SYRINGE IVP SCH (08:49)
[2018-01-05] MEDS: TRIMETHOBENZAMIDE 300 MG CAP PO SCH (08:50)
[2018-01-05] MEDS: FERROUS SULFATE 325 MG TAB PO SCH (08:50)
[2018-01-05] MEDS: METOPROLOL SUCCINATE (ER) 100 MG TAB.ER.24H PO SCH (08:50)
[2018-01-05] MEDS: DOCUSATE 100 MG CAP PO SCH (08:50)
[2018-01-05] MEDS: FAMOTIDINE 20 MG TAB PO SCH (09:52)
[2018-01-05 11:15] VITALS: BP 118/85; PULSE 79; TEMP 98.5
--- NOTE | 2018-01-05 11:36 | P.DS ---
Providers Date of admission: 12/30/17 03:10 Expected date of discharge: 01/05/18 Attending physician: Maryellen Joel Consults: 12/30/17 01:35 Consult Physician Routine Consulting Provider: Dottie Montenegro Consult Reason/Comments: headache Do you want consulting provider notified?: Yes 12/30/17 13:07 Consult Physician Routine Consulting Provider: Jerson Hansen Consult Reason/Comments: headache, low grade fever Do you want consulting provider notified?: Yes 01/01/18 09:00 Consult to Anesthesia Urgent Consulting Provider: Anesthesia,Services Consult Reason/Comments: Bilateral occipital nerve block for occipital neuritis. 01/01/18 10:04 Consult Physician Routine Consulting Provider: Lina Gonzalez Consult Reason/Comments: pain management, possible occipital block Do you want consulting provider notified?: Yes Primary care physician: Maryellen Joel [facility] Course: Discharge diagnosis 1. Severe headache with occipital neuritis. Unable to have nerve block due to being on Xarelto. 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 Patient was seen by neurology. Patient had no improvement of headache with Ultram, Fioricet or [place]. She does report improvement in her headache with the Dilaudid brings the pain down to about a 3 out of 10. Patient will be given a prescription for Dilaudid 2 mg every 4 hours as needed for pain. 2. UTI: Urine culture growing strep Agalactiae group B .Currently on Rocephin. Case discussed with nurse practitioner from infectious disease. We'll do 4 more days of Ceftin to complete a total 10 days 3. Lupus anticoagulant disorder: On Xarelto 4. Mitochondrial DNA depletion syndrome 5. Elevated LFTs with mild right upper quadrant abdominal pain. Pravastatin discontinued. Hepatitis panel negative. Abdominal ultrasound from 10/24/2017 had shown an anatomically coarsened echo pattern which is nonspecific likely related to fatty liver disease. Continue to monitor LFTs. LFTs continued to trend down. AST 49 ALT 74 Recommend checking a CMP in 1 week. Pravastatin has been discontinued for now Hospital course patient is a 37-year-old female who presented to [facility] emergency room with a chief complaint of severe headache she was evaluated in the emergency room she had low-grade fever, and due to the severity of her headache and to her abnormal previous testing decision was made to proceed with admitting her to medical floor for further evaluation and treatment. Patient initially started having headaches about 10 days ago, prior to that she only had episodes of migraine headache, however 10 days ago she started having different kind of headache that was constant and severe, she presented to emergency room at that time and had a CT angiogram of her head which revealed anterior cerebral arteries appear to feel entirely from the right side without any evidence of intracranial aneurysm or stenosis, at that time she was discharged home, she presented to our office as a new patient, arrangement where made for her for follow-up MRI and neurology appointment however she presented again to emergency room with worsening severe headache prior to having any chance to have any testing as outpatient and decision was made to proceed with admission and inpatient testing and neurology consultation. On presentation patient had low-grade fever of 100, white blood count was slightly elevated at 12.5, due to the severe headache and low-grade fever patient was started on Rocephin 1 g IV every 24 hours and consultation for infectious disease was initiated. Patient reports improvement in her headache with the Dilaudid. She'll be given a prescription for this as stated above. No new findings on computed tomography scan of the brain. She's been followed closely by neurology. She is medically stable for discharge. We'll have her follow-up with her neurologist and Dr. Joel in 1 week. She had minimally elevated LFTs during this admission. Likely medication induced. Pravastatin discontinued. And will recommend checking CMP in 1 week I performed an examination of the patient and discussed their management with the physician Scroll Machine Operator. I have reviewed the Physician Scroll Machine Operator's notes and agree with the documented findings and plan of care Patient Condition at Discharge: Stable Plan - Discharge Summary Discharge Rx Participant: No New Discharge Prescriptions: New Cefuroxime Axetil [Ceftin] 500 mg PO BID #8 tab HYDROmorphone [Dilaudid] 2 mg PO Q4HR PRN #60 tab PRN Reason: Moderate Pain Continue Cyanocobalamin [Vitamin B-12] 2,000 mcg PO HS Ferrous Sulfate [Iron (65 MG Elemental)] 325 mg PO BID tiZANidine [Zanaflex] 8 mg PO HS Rivaroxaban [Xarelto] 20 mg PO HS Metoclopramide [Reglan] 10 mg PO ACHS Levothyroxine Sodium [Synthroid] 200 mcg PO DAILY Levothyroxine Sodium [Synthroid] 50 mcg PO DAILY Insulin Glargine [Lantus] 30 unit SQ HS vial Topiramate [Topamax] 75 mg PO BID Insulin Aspart [NovoLOG Flexpen] See Protocol SQ AC-TID Trimethobenzamide HCl [Tigan] 300 mg PO TID PRN PRN Reason: Nausea Ondansetron [Zofran] 8 mg PO Q6HR PRN PRN Reason: Nausea And Vomiting Metoprolol Succinate (ER) [Toprol XL] 100 mg PO DAILY Ranitidine HCl 150 mg PO BID Discontinued Pravastatin Sodium [Pravachol] 40 mg PO HS Discharge Medication List Cyanocobalamin [Vitamin B-12] 2,000 mcg PO HS 01/25/16 [History] Ferrous Sulfate [Iron (65 MG Elemental)] 325 mg PO BID 07/14/16 [History] Rivaroxaban [Xarelto] 20 mg PO HS 03/09/17 [History] tiZANidine [Zanaflex] 8 mg PO HS 03/09/17 [History] Levothyroxine Sodium [Synthroid] 50 mcg PO DAILY 07/29/17 [History] Levothyroxine Sodium [Synthroid] 200 mcg PO DAILY 07/29/17 [History] Metoclopramide [Reglan] 10 mg PO ACHS 07/29/17 [History] Insulin Glargine [Lantus] 30 unit SQ HS vial 08/05/17 [Rx] Insulin Aspart [NovoLOG Flexpen] See Protocol SQ AC-TID 09/13/17 [History] Topiramate [Topamax] 75 mg PO BID 09/13/17 [History] Ondansetron [Zofran] 8 mg PO Q6HR PRN 09/25/17 [History] Trimethobenzamide HCl [Tigan] 300 mg PO TID PRN 09/25/17 [History] Metoprolol Succinate (ER) [Toprol XL] 100 mg PO DAILY 10/24/17 [History] Ranitidine HCl 150 mg PO BID 12/17/17 [History] Cefuroxime Axetil [Ceftin] 500 mg PO BID #8 tab 01/05/18 [Rx] HYDROmorphone [Dilaudid] 2 mg PO Q4HR PRN #60 tab 01/05/18 [Rx] Follow up Appointment(s)/Referral(s): Maryellen Joel MD [Primary Care Provider] - 1 Week Leah Vickers MD [STAFF PHYSICIAN] - 1 Week Activity/Diet/Wound Care/Special Instructions: Diet: diabetic Activity: as tolerated Discharge Disposition: HOME SELF-CARE
[2018-01-05] MEDS: ONDANSETRON 4 MG/2 ML VIAL IVP PRN (12:15)
[2018-01-05 12:44] LABS: Glucose,Whole Blood 106 mg/dL (75-99)
--- NOTE | 2018-01-05 21:57 | P.PN ---
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 She has a lupus-like syndrome. And has progressive dysautonomia which is directly affecting her ability to ambulate. She also has a history of hemiplegic migraines but current headace is very different than her hemiplegic migraines. It is bifrontal and associated with pressure and feels quite poorly. She did have a headache somewhat similar earlier this year. He has noted she's had difficulty with the deep venous thrombosis the left arm and is being treated with Xarelto. Is the patient has a very complex past medical history. Because of her current symptoms computed tomography scan was performed that shows evidence of the abnormality in that the right vertebral artery is dominant in the left vertebral artery is very small in size. Patient does have a prior CT angiogram which did not reveal aneurysm. Patient feeling better today. Fevers improved. She is reading a book on her [place] with improvement of her headache in her vision. Denies further significant fever chill or rigor. Has been seen by neurology with plans to diminish her pain medications. On 01/05/2018 the patient is now considerably improved. She is pleased to be going home with some oral pain medications that have been working quite well here. And will follow with neurology. Objective - Vital Signs Vital signs: Vital Signs Temp 98.5 F 01/05/18 10:56 Pulse 79 01/05/18 10:56 Resp 18 01/05/18 10:56 BP 118/85 01/05/18 10:56 Pulse Ox 97 01/05/18 10:56 Intake & Output 01/05/18 01/05/18 01/06/18 06:59 18:59 06:59 Intake Total 400 200 Balance 400 200 Intake: Oral 400 200 Other: Voiding Method Toilet # Voids 1 1 - Exam 37-year-old female with 26 ER visits in the last 3 years HEENT: Anicteric conjunctiva are pink and moist nasal mucosa grossly intact without significant lesions, there is no thrush. Neck: The neck is supple, no significant stiffness is noted without significant lymphadenopathy or thyromegaly. Lungs: Good bilateral air entry without significant crackles or wheezing. There is no significant bronchial sounds. There is no egophony or dullness. Heart: Regular rate and rhythm with an audible S1-S2, no S3 no S4. There is no significant murmur click or rub, PMI was nondisplaced. Abdomen: Positive bowel sounds soft and nontender without palpable masses or organomegaly. There was no guarding or rebound. Extremities: The upper extremities have excellent pulses they are symmetric, no significant petechiae or telangiectasia. No splinter hemorrhages were noted. The lower extremities are free from significant edema. The peripheral pulses were 2+ and symmetric. Neuro: Awake alert oriented to person place and time. She complains of generalized weakness. She is able to follow all simple commands. Feeling better today headache is under good control and looks forward to discharge - Labs CBC & Chem 7: 01/05/18 06:19 01/05/18 06:19 Labs: Abnormal Lab Results - Last 24 Hours (Table) 01/05/18 01/05/18 01/05/18 Range/Units 06: 06:19 12:03 MCHC 30.2 L (31.0-37.0) g/dL Chloride 109 H (98-107) mmol/L Carbon Dioxide 20 L (22-30) mmol/L Glucose 104 H (74-99) mg/dL POC Glucose (mg/dL) 106 H (75-99) mg/dL AST 49 H (14-36) U/L ALT 74 H (9-52) U/L Laboratory Results WBC 8.0 k/uL (3.8-10.6) 01/05/18 06:19 RBC 4.35 m/uL (3.80-5.40) 01/05/18 06:19 Hgb 12.1 gm/dL (11.4-16.0) 01/05/18 06:19 Hct 40.1 % (34.0-46.0) 01/05/18 06:19 MCV 92.0 fL (80.0-100.0) 01/05/18:19 MCH 27.8 pg (25.0-35.0) 01/05/18: MCHC 30.2 g/dL (31.0-37.0) L 01/05/18: RDW 14.6 % (11.5-15.5) 01/05/18 06:19 Plt Count 289 k/uL (150-450) 01/05/18 06:19 Neutrophils % 60 % 01/05/18 06:19 Lymphocytes % 29 % 01/05/18 06:19 Monocytes % 7 % 01/05/18 06:19 Eosinophils % 3 % 01/05/18 06:19 Basophils % 1 % 01/05/18 06:19 Neutrophils # 4.8 k/uL (1.3-7.7) 01/05/18 06:19 Lymphocytes # 2.3 k/uL (1.0-4.8) 01/05/18 06:19 Monocytes # 0.5 k/uL (0-1.0) 01/05/18 06:19 Eosinophils # 0.2 k/uL (0-0.7) 01/05/18 06:19 Basophils # 0.1 k/uL (0-0.2) 01/05/18 06:19 Hypochromasia Slight 01/02/18 07:08 PT 10.5 sec (9.0-12.0) 12/30/17 01:16 INR 1.1 (<1.2) 12/30/17 01:16 APTT 29.3 sec (22.0-30.0) 12/30/17 01:16 Sodium 142 mmol/L (137-145) 01/05/18 06:19 Potassium 4.2 mmol/L (3.5-5.1) 01/05/18 06:19 Chloride 109 mmol/L (98-107) H 01/05/18 06:19 Carbon Dioxide 20 mmol/L (22-30) L 01/05/18 06:19 Anion Gap 13 mmol/L 01/05/18 06:19 BUN 11 mg/dL (7-17) 01/05/18 06:19 Creatinine 0.64 mg/dL (0.52-1.04) 01/05/18 06:19 Est GFR (MDRD) Af Amer >60 (>60 ml/min/1.73 sqM) 01/05/18 06:19 Est GFR (MDRD) Non-Af >60 (>60 ml/min/1.73 sqM) 01/05/18 06:19 Glucose 104 mg/dL (74-99) H 01/05/18 06:19 POC Glucose (mg/dL) 106 mg/dL (75-99) H 01/05/18 12:03 POC Glu Nurse Recruiter ID Alanna Gallardo 01/05/18 12:[address] Glu mg/dL 148 12/30/17 01:16 Hemoglobin A1c 6.8 % (4.0-6.0) H 12/30/17 01:16 Calcium 10.0 mg/dL (8.4-10.2) 01/05/18 06:19 Total Bilirubin 0.3 mg/dL (0.2-1.3) 01/05/18 06:19 AST 49 U/L (14-36) H 01/05/18 06:19 ALT 74 U/L (9-52) H 01/05/18 06:19 Alkaline Phosphatase 95 U/L (38-126) 01/05/18 06:19 Total Protein 6.5 g/dL (6.3-8.2) 01/05/18 06:19 Albumin 3.9 g/dL (3.5-5.0) 01/05/18 06:19 Urine Color Yellow 12/30/17 01:16 Urine Appearance Cloudy (Clear) H 12/30/17 01:16 Urine pH 6.0 (5.0-8.0) 12/30/17 01:16 Ur Specific [place] 1.020 (1.001-1.035) 12/30/17 01:16 Urine Protein Trace (Negative) H 12/30/17 01:16 Urine Glucose (UA) Negative (Negative) 12/30/17 01:16 Urine Ketones Negative (Negative) 12/30/17 01:16 Urine Blood Negative (Negative) 12/30/17 01:16 Urine Nitrite Negative (Negative) 12/30/17 01:16 Urine Bilirubin Negative (Negative) 12/30/17 01:16 Urine Urobilinogen <2.0 mg/dL (<2.0) 12/30/17 01:16 Ur Leukocyte Esterase Trace (Negative) H 12/30/17 01:16 Urine RBC 1 /hpf (0-5) 12/30/17 01:16 Urine WBC 9 /hpf (0-5) H 12/30/17 01:16 Urine WBC Clumps Rare /hpf (None) H 12/30/17 01:16 Ur Squamous Epith Cells 6 /hpf (0-4) H 12/30/17 01:16 Urine Bacteria Rare /hpf (None) H 12/30/17 01:16 Hyaline Casts 1 /lpf (0-2) 12/30/17 01:16 Urine Mucus Rare /hpf (None) H 12/30/17 01:16 Hepatitis A IgM Ab Non-Reactive (Non-Reactive) 12/31/17 06:54 Hep Bs Antigen Non-Reactive (Non-Reactive) 12/31/17 06:54 Hep B Core IgM Ab Non-Reactive (Non-Reactive) 12/31/17 06:54 Hep C IgG Ab Non-Reactive (Non-Reactive) 12/31/17 06:54 Influenza Type A RNA Not Detected (Not Detectd) 12/30/17 00:13 Influenza Type B (PCR) Not Detected (Not Detectd) 12/30/17 00:13 Microbiology 12/30/17 01:16 Urine,Clean Catch Urine Culture - Final Strep agalactiae - (group b) Assessment and Plan (1) Headache Narrative/Plan: 37-year-old female presents to the emergency center complaining of significant headache that is quite different than her hemiplegic migraines that she often suffers from. Is complaining of bifrontal headache associated with pressure. She really she's had a fever at home with some chills without ester rigor. May have had a sweat. With the headache she's had some nausea without much emesis. No hematemesis melena or hematochezia. She's not having any acute neurological deficits. Influenza testing is negative, with no evidence of urinary tract infection or pneumonia. Does not have classic signs of meningitis or meningismus. Neurological evaluation is in process and a MRI/MRA has been requested to further characterize her vascular status given the abnormality that were seen with her basilar circulation. She did have a leukocytosis that is already improving, not clear the amount of outpatient steroids she was taking. There is evidence of elevated AST ALT no evidence of viral hepatitis Urine culture positive for group B strep, Rocephin is transitioned to oral cefuroxime which she will complete for 3 days at home for her urinary tract infection. She will discharged home today and follow with neurology. 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
== END 2018-01-05 14:00 | disposition home or self-care (01) | DRG 73 ==
LOC: EC 23:03 → 5MS5E 12-30 03:10 → 6PED 01-03 22:15
PROVIDERS: ADMIT Internal Medicine; ATTEND Internal Medicine
DX: G58.8 Other specified mononeuropathies (principal); Q28.3 Other malformations of cerebral vessels; E88.40 Mitochondrial metabolism disorder, unspecified; D68.62 Lupus anticoagulant syndrome; Q21.1 Atrial septal defect; G43.401 Hemiplegic migraine, not intractable, with status migrainosus; N39.0 Urinary tract infection, site not specified; K31.84 Gastroparesis; E11.43 Type 2 diabetes mellitus with diabetic autonomic (poly)neuropathy; E28.2 Polycystic ovarian syndrome; G47.419 Narcolepsy without cataplexy; K76.0 Fatty (change of) liver, not elsewhere classified; D35.2 Benign neoplasm of pituitary gland; F32.9 Major depressive disorder, single episode, unspecified; E11.42 Type 2 diabetes mellitus with diabetic polyneuropathy; R10.11 Right upper quadrant pain; R79.89 Other specified abnormal findings of blood chemistry; E06.3 Autoimmune thyroiditis; G90.1 Familial dysautonomia [Riley-Day]; I89.0 Lymphedema, not elsewhere classified; E78.5 Hyperlipidemia, unspecified; K59.00 Constipation, unspecified; B95.1 Streptococcus, group B, as the cause of diseases classified elsewhere; T50.905A Adverse effect of unspecified drugs, medicaments and biological substances, initial encounter; Z79.01 Long term (current) use of anticoagulants; Z79.4 Long term (current) use of insulin; Z79.899 Other long term (current) drug therapy; Z88.1 Allergy status to other antibiotic agents; Z88.2 Allergy status to sulfonamides; Z88.7 Allergy status to serum and vaccine; Z88.8 Allergy status to other drugs, medicaments and biological substances; Z86.73 Personal history of transient ischemic attack (TIA), and cerebral infarction without residual deficits; Z86.718 Personal history of other venous thrombosis and embolism; Z86.14 Personal history of Methicillin resistant Staphylococcus aureus infection; Z82.49 Family history of ischemic heart disease and other diseases of the circulatory system; Y92.9 Unspecified place or not applicable
CPT/HCPCS: 36415; 70544; 70549; 70553; 80053; 80074; 81001; 83036; 85025; 85610; 85730; 87086; 87502; 96361; 96374; 96375; 96376; 99285

== ENCOUNTER 2018-01-21 16:49 | Inpatient (IN) | payer MEDICARE, OTHER ==
[2018-01-21] MEDS ORDERED: ACETAMINOPHEN TAB 500 MG TAB PO STA (17:07)
[2018-01-21] MEDS ORDERED: SODIUM CHLORIDE 0.9% 1,000 ML IV ONE ×2 (17:07→17:51)
--- NOTE | 2018-01-21 17:17 | ED ---
General Adult HPI - General Chief complaint: Urogenital Stated complaint: Back/Abd Pain/Fever/Nausea Time Seen by Provider: 01/21/18 16:52 Source: patient, RN notes reviewed, old records reviewed Mode of arrival: wheelchair Limitations: no limitations - History of Present Illness Initial comments: 37 yo female presenting with chief complaint dysuria, right flank pain, and fever. Patient has been treated for UTI over the past several weeks. She was admitted to the hospital with urinary tract infection. She had been on outpatient antibiotics, this was recently switched to Macrobid. She's been on this antibiotic for the past several days. She has had persistent fever with a temperature at home of 102, nausea with one episode of vomiting this morning and dysuria. She also complains of right lower quadrant abdominal pain and right-sided flank pain. No upper abdominal pain. No chest pain. No cough or URI symptoms. - Related Data Home Medications Medication Instructions Recorded Confirmed Cyanocobalamin [Vitamin B-12] 2,000 mcg PO HS 01/25/16 01/21/18 Ferrous Sulfate [Iron (65 MG 325 mg PO BID 07/14/16 01/21/18 Elemental)] Rivaroxaban [Xarelto] 20 mg PO HS 03/09/17 01/21/18 tiZANidine [Zanaflex] 8 mg PO HS 03/09/17 01/21/18 Levothyroxine Sodium [Synthroid] 50 mcg PO DAILY 07/29/17 01/21/18 Levothyroxine Sodium [Synthroid] 200 mcg PO DAILY 07/29/17 01/21/18 Metoclopramide [Reglan] 10 mg PO ACHS 07/29/17 01/21/18 Insulin Aspart [NovoLOG Flexpen] See Protocol SQ AC-TID 09/13/17 01/21/18 Topiramate [Topamax] 75 mg PO BID 09/13/17 01/21/18 Ondansetron [Zofran] 8 mg PO Q6HR PRN 09/25/17 01/21/18 Trimethobenzamide HCl [Tigan] 300 mg PO TID PRN 09/25/17 01/21/18 Metoprolol Succinate (ER) [Toprol 100 mg PO DAILY 10/24/17 01/21/18 XL] Ranitidine HCl 150 mg PO BID 12/17/17 01/21/18 Nitrofurantoin Monohyd/M-Cryst 100 mg PO Q12HR 01/21/18 01/21/18 [Macrobid] Previous Rx's Medication Instructions Recorded Insulin Glargine [Lantus] 30 unit SQ HS vial 08/05/17 HYDROmorphone [Dilaudid] 2 mg PO Q4HR PRN #60 tab 01/05/18 Allergies Allergy/AdvReac Type Severity Reaction Status Date / Time barium sulfate Allergy Anaphylaxis Verified 01/21/18 17:17 diphtheria, pertussis, Allergy Unknown Verified 01/21/18 17:17 tetanus vacc doxepin [Doxepin] Allergy Anaphylaxis Verified 01/21/18 17:17 influenza virus vaccine, Allergy Rash/Hives Verified 01/21/18 17:17 specific [Influenza Virus Vacc,Specific] promethazine HCl Allergy Anaphylaxis Verified 01/21/18 17:17 [From Phenergan] doxycycline AdvReac Nausea & Verified 01/21/18 17:17 Vomiting & Diarrhea Pertussis Vaccines AdvReac fever/seizu Verified 01/21/18 17:17 re pseudoephedrine AdvReac Chest Pain Verified 01/21/18 17:17 pseudoephedrine HCl AdvReac Chest Pain Verified 01/21/18 17:17 [From Sudafed] sulfamethoxazole AdvReac Nausea & Verified 01/21/18 17:17 [From Bactrim] Vomiting trimethoprim [From Bactrim] AdvReac Nausea & Verified 01/21/18 17:17 Vomiting Review of Systems ROS Statement: Those systems with pertinent positive or pertinent negative responses have been documented in the HPI. ROS Other: All systems not noted in ROS Statement are negative. Past Medical History Past Medical History: Chest Pain / Angina, CVA/TIA, Diabetes Mellitus, Deep Vein Thrombosis (DVT), Neurologic Disorder, Syncope, Thyroid Disorder Additional Past Medical History / Comment(s): Dysautonomia-progressive neurological disorder, lupus/LUPUS ANTICOAGULANTS, 2004 CVA without residual, ana maria's disease, lymphedema Lt arm d/t DVTs (currently has DVT), v-tach, pituitary microadenoma. "mitochondrial disease". patent foramen ovale, narcolepsy, gastropareis, IDDM type II, uti's, falls, orthostatic hypotension/ syncope,migraines with hemiplegia, pernicious anemia, polycystic ovarian syndrome, neuropathy bilateral legs/fee-mild, uterine ablation August 2015/ patient no longer has periods. History of Any Multi-Drug Resistant Organisms: ESBL, MRSA Date of last positivie culture/infection: 03/09/17,09/13/17 ESBL MDRO Source:: LEFT ARM, URINE ECOLI Past Surgical History: Uterine Ablation Additional Past Surgical History / Comment(s): colonscopy/egd, angie, stress test. Past Anesthesia/Blood Transfusion Reactions: No Reported Reaction Additional Past Anesthesia/Blood Transfusion Reaction / Comment(s): patient states "It takes a lot of anesthesia for my body to react". Pt has received blood in past without reaction. Past Psychological History: Bipolar, Depression Smoking Status: Never smoker - Past Family History Brother(s) Family Medical History: Diabetes Mellitus, Hyperlipidemia, Hypertension Additional Family Medical History / Comment(s): Patient states she has 1 brother with no major medical problems. Father Family Medical History: Hyperlipidemia, Hypertension Additional Family Medical History / Comment(s): DAD IS 70 YEARS OLD. Patient states she does not have any contact with her father and does not know his medical history. Mother Family Medical History: Chest Pain / Angina, CVA/TIA, Hyperlipidemia, Hypertension Additional Family Medical History / Comment(s): AGE 62 HAS LUPUS, blood pressure swings high to low General Exam Limitations: no limitations General appearance: alert, in no apparent distress Head exam: Present: atraumatic, normocephalic Eye exam: Present: normal appearance, PERRL ENT exam: Present: normal exam Neck exam: Present: normal inspection. Absent: tenderness, meningismus Respiratory exam: Present: normal lung sounds bilaterally. Absent: respiratory distress, wheezes Cardiovascular Exam: Present: normal rhythm, tachycardia GI/Abdominal exam: Present: soft, tenderness (Right lower quadrant and suprapubic tenderness). Absent: distended, guarding, rebound Extremities exam: Present: normal inspection, normal capillary refill. Absent: pedal edema Back exam: Present: CVA tenderness (R) Neurological exam: Present: alert, oriented X3. Absent: motor sensory deficit Psychiatric exam: Present: normal affect, normal mood Skin exam: Present: warm, dry, intact. Absent: cyanosis, diaphoretic Course Vital Signs 01/21/18 01/21/18 01/21/18 16:53 18:09 18:54 Temperature 100.0 F H 100.8 F H Pulse Rate 128 H 110 H 111 H Respiratory 18 16 18 Rate Blood Pressure 157/90 132/72 119/78 O2 Sat by Pulse 96 94 L 95 Oximetry Medical Decision Making - Medical Decision Making 37 YO female presenting with fever, persistent dysuria, and back pain. There is concern for partial treated or failed outpatient treatment of urinary tract infection. Patient does have some right lower quadrant tenderness. Urinalysis is unimpressive for current UTI causing fever and tachycardia. CT is obtained, this is negative for appendicitis or acute intra-abdominal pathology. White blood cell count is elevated at 12. Lactic acid significantly elevated 5.6. Patient did have one episode of vomiting, this is secondary both to sepsis and dehydration. After 2 L normal saline bolus, repeat lactate is 1.4. Patient is given ceftriaxone and vancomycin in the emergency department. She will be admitted awaiting blood culture and urine culture results. - Lab Data Result diagrams: 01/21/18 17:17 01/21/18 17:17 Lab Results 01/21/18 01/21/18 01/21/18 Range/Units 17:06 17:06 17:17 WBC 12.0 H (3.8-10.6) k/uL RBC 4.59 (3.80-5.40) m/uL Hgb 13.1 (11.4-16.0) gm/dL Hct 39.5 (34.0-46.0) % MCV 86.0 D (80.0-100.0) fL MCH 28.5 (25.0-35.0) pg MCHC 33.2 (31.0-37.0) g/dL RDW 14.1 (11.5-15.5) % Plt Count 352 (150-450) k/uL Neutrophils % 82 % Lymphocytes % 12 % Monocytes % 5 % Eosinophils % 1 % Basophils % 0 % Neutrophils # 9.8 H (1.3-7.7) k/uL Lymphocytes # 1.4 (1.0-4.8) k/uL Monocytes # 0.6 (0-1.0) k/uL Eosinophils # 0.1 (0-0.7) k/uL Basophils # 0.0 (0-0.2) k/uL PT (9.0-12.0) sec INR (<1.2) APTT (22.0-30.0) sec Sodium (137-145) mmol/L Potassium (3.5-5.1) mmol/L Chloride (98-107) mmol/L Carbon Dioxide (22-30) mmol/L Anion Gap mmol/L BUN (7-17) mg/dL Creatinine (0.52-1.04) mg/dL Est GFR (MDRD) Af Amer (>60 ml/min/1.73 sqM) Est GFR (MDRD) Non-Af (>60 ml/min/1.73 sqM) Glucose (74-99) mg/dL Plasma Lactic Acid Joce (0.7-2.0) mmol/L Calcium (8.4-10.2) mg/dL Total Bilirubin (0.2-1.3) mg/dL AST (14-36) U/L ALT (9-52) U/L Alkaline Phosphatase (38-126) U/L Total Protein (6.3-8.2) g/dL Albumin (3.5-5.0) g/dL Urine Color Yellow Urine Appearance Cloudy H (Clear) Urine pH 5.5 (5.0-8.0) Ur Specific [place] 1.022 (1.001-1.035) Urine Protein 1+ H (Negative) Urine Glucose (UA) Negative (Negative) Urine Ketones 1+ H (Negative) Urine Blood Trace H (Negative) Urine Nitrite Negative (Negative) Urine Bilirubin Negative (Negative) Urine Urobilinogen <2.0 (<2.0) mg/dL Ur Leukocyte Esterase Negative (Negative) Urine RBC 8 H (0-5) /hpf Urine WBC 4 (0-5) /hpf Ur Squamous Epith Cells 6 H (0-4) /hpf Urine Bacteria Rare H (None) /hpf Hyaline Casts 8 H (0-2) /lpf Granular Casts 47 (0) /lpf Urine Mucus Occasional H (None) /hpf Urine HCG, Qual Not Detected (Not Detectd) 01/21/18 01/21/18 01/21/18 Range/Units 17:17 17:17 17:17 WBC (3.8-10.6) k/uL RBC (3.80-5.40) m/uL Hgb (11.4-16.0) gm/dL Hct (34.0-46.0) % MCV (80.0-100.0) fL MCH (25.0-35.0) pg MCHC (31.0-37.0) g/dL RDW (11.5-15.5) % Plt Count (150-450) k/uL Neutrophils % % Lymphocytes % % Monocytes % % Eosinophils % % Basophils % % Neutrophils # (1.3-7.7) k/uL Lymphocytes # (1.0-4.8) k/uL Monocytes # (0-1.0) k/uL Eosinophils # (0-0.7) k/uL Basophils # (0-0.2) k/uL PT 10.4 (9.0-12.0) sec INR 1.1 (<1.2) APTT 26.9 (22.0-30.0) sec Sodium 145 (137-145) mmol/L Potassium 4.0 (3.5-5.1) mmol/L Chloride 108 H (98-107) mmol/L Carbon Dioxide 16 L (22-30) mmol/L Anion Gap 21 mmol/L BUN 10 (7-17) mg/dL Creatinine 0.60 (0.52-1.04) mg/dL Est GFR (MDRD) Af Amer >60 (>60 ml/min/1.73 sqM) Est GFR (MDRD) Non-Af >60 (>60 ml/min/1.73 sqM) Glucose 214 H (74-99) mg/dL Plasma Lactic Acid Joce 5.6 H* (0.7-2.0) mmol/L Calcium 10.2 (8.4-10.2) mg/dL Total Bilirubin 0.3 (0.2-1.3) mg/dL AST 40 H (14-36) U/L ALT 31 (9-52) U/L Alkaline Phosphatase 96 (38-126) U/L Total Protein 7.8 (6.3-8.2) g/dL Albumin 4.7 (3.5-5.0) g/dL Urine Color Urine Appearance (Clear) Urine pH (5.0-8.0) Ur Specific [place] (1.001-1.035) Urine Protein (Negative) Urine Glucose (UA) (Negative) Urine Ketones (Negative) Urine Blood (Negative) Urine Nitrite (Negative) Urine Bilirubin (Negative) Urine Urobilinogen (<2.0) mg/dL Ur Leukocyte Esterase (Negative) Urine RBC (0-5) /hpf Urine WBC (0-5) /hpf Ur Squamous Epith Cells (0-4) /hpf Urine Bacteria (None) /hpf Hyaline Casts (0-2) /lpf Granular Casts (0) /lpf Urine Mucus (None) /hpf Urine HCG, Qual (Not Detectd) Critical Care Time Critical Care Time: Yes Total Critical Care Time: 35 Disposition Clinical Impression: Urinary tract infection, Sepsis Disposition: ADMITTED IP TO THIS HOSP Condition: Serious Referrals: Maryellen Joel MD [Primary Care Provider] - 1-2 days Decision to Admit Reason: Admit from EC Decision Date: 01/21/18 Decision Time: 19:55
[2018-01-21 17:34] LABS: Basophils % (A) 0 %; Eosinophils # (A) 0.1 k/uL (0-0.7); Eosinophils % (A) 1 %; HCT 39.5 % (34.0-46.0); HGB 13.1 gm/dL (11.4-16.0); Lymphocytes # (A) 1.4 k/uL (1.0-4.8); Lymphocytes % (A) 12 %; MCH 28.5 pg (25.0-35.0); MCHC 33.2 g/dL (31.0-37.0); Mean Platelet Volume 7.3; Monocytes # (A) 0.6 k/uL (0-1.0); Monocytes % (A) 5 %; Neutrophils # (A) 9.8 k/uL (1.3-7.7); Neutrophils % (A) 82 %; Platelet Count 352 k/uL (150-450); RBC 4.59 m/uL (3.80-5.40); RDW 14.1 % (11.5-15.5)
[2018-01-21 17:38] LABS: Appearance,Urine Cloudy (Clear); Bacteria,Urine Rare /hpf; Bilirubin,Urine Negative (Negative); Blood,Urine Trace (Negative); Color,Urine Yellow; Glucose,Urine (UA) Negative (Negative); Granular Casts,Urine 47 /lpf (0); Hyaline Casts,Urine 8 /lpf (0-2); Ketones,Urine 1+ (Negative); Leukocyte Esterase,Urine Negative (Negative); Mucus,Urine Occasional /hpf; Nitrite,Urine Negative (Negative); PH, Urine 5.5 (5.0-8.0); Protein,Urine 1+ (Negative); RBC,Urine 8 /hpf (0-5); Specific Gravity,Urine 1.022 (1.001-1.035); Squamous Epithelial Cell,Urine 6 /hpf (0-4); Urobilinogen,Urine <2.0 mg/dL (<2.0); WBC,Urine 4 /hpf (0-5)
[2018-01-21 17:44] LABS: INR 1.1 (<1.2); Partial Thromboplastin Time 26.9 sec (22.0-30.0); Prothrombin Time 10.4 sec (9.0-12.0)
[2018-01-21 17:48] LABS: ALT 31 U/L (9-52); AST 40 U/L (14-36); Albumin 4.7 g/dL (3.5-5.0); Alkaline Phosphatase 96 U/L (38-126); Anion Gap 21 mmol/L; Blood Urea Nitrogen 10 mg/dL (7-17); Calcium 10.2 mg/dL (8.4-10.2); Carbon Dioxide 16 mmol/L (22-30); Chloride 108 mmol/L (98-107); Glucose 214 mg/dL (74-99); Sodium 145 mmol/L (137-145); Total Bilirubin 0.3 mg/dL (0.2-1.3); Total Protein 7.8 g/dL (6.3-8.2)
[2018-01-21] MEDS ORDERED: RX INFO: IV CONTRAST WAS GIVEN 1 EACH MISC MISCELLANE PRN (17:50)
[2018-01-21] MEDS ORDERED: cefTRIAXone IN SWFI 1,000 MG/10 ML SYRINGE IVP STA (17:56)
[2018-01-21] MEDS ORDERED: ONDANSETRON 4 MG/2 ML VIAL IVP STA (18:46)
--- NOTE | 2018-01-21 20:03 | CT ---
EXAMINATION TYPE: CT abdomen pelvis w con DATE OF EXAM: 01/21/2018 COMPARISON: CT 10/19/2017 INDICATION: Abdominal and back pain. Patient being treated for UTI. Recently having right lower quadr ant pain, vomiting and fever. DLP: 1734 mGycm, Automated exposure control for dose reduction was used. CONTRAST: 100 mL of Omnipaque 300. Study performed without Oral Contrast TECHNIQUE: Axial images were obtained from above the diaphragm to the pubic rami in the axial plane a t 5 mm thick sections. Reconstructed images are reviewed on the computer in the coronal plane. FINDINGS: Limited CT sections are obtained the lung bases. The lung bases are clear. CT ABDOMEN: Liver: There is mild fatty infiltration of the liver. Spleen: Normal Pancreas: Normal Adrenal glands: The adrenal glands are normal. Gallbladder: Normal Kidneys: No masses are evident. No hydronephrosis is present. No cysts are present. Delayed images were obtained through the kidneys, which remain unremarkable. Aorta: Normal Inferior vena cava: Normal. CT PELVIS: Loops of bowel within the abdomen and pelvis are normal. Studies without oral contrast limiting t he evaluation of loops of bowel. There are some scattered diverticuli within the colon throughout its visualized course. Appendix: Normal as visualized. Urinary bladder: Normal. Genitourinary structures: Uterus is normal. The right adnexa is high within the mid pelvis. Left adne xal region is unremarkable Osseous structures: No suspicious lytic or sclerotic lesions. IMPRESSIONS: 1. Colonic diverticulosis without acute diverticulitis. 2. Normal appendix
[2018-01-21] MEDS ORDERED: VANCOMYCIN IV PER PHARMACY 1 EACH MISC MISCELLANE PRN (20:32)
[2018-01-21] MEDS ORDERED: ACETAMINOPHEN TAB 325 MG TAB PO PRN (20:36)
[2018-01-21] MEDS ORDERED: NALOXONE 0.4 MG/ML 1 ML VIAL IV PRN (20:36)
[2018-01-21] MEDS ORDERED: VANCOMYCIN 2,250 MG in SODIUM CHLORIDE 0.9% 500 ML IVPB STA (20:41)
[2018-01-21] MEDS: RIVAROXABAN 20 MG TAB PO SCH (21:58)
[2018-01-21] MEDS: SODIUM CHLORIDE 0.9% 1,000 ML IV SCH (21:59)
[2018-01-21] MEDS: INSULIN DETEMIR 100 UNIT/ML 10 ML VIAL SQ SCH (21:59)
[2018-01-21] MEDS: HYDROmorphone 2 MG TAB PO PRN (22:38)
[2018-01-21] MEDS: tiZANidine 4 MG TAB PO SCH (22:52)
[2018-01-21] MEDS: TOPIRAMATE 25 MG TAB PO SCH (22:52)
[2018-01-22 02:15] VITALS: BMI 39.9
[2018-01-22 07:02] LABS: Glucose,Whole Blood 116 mg/dL (75-99)
[2018-01-22] MEDS: LEVOTHYROXINE 100 MCG TAB PO SCH (07:02)
[2018-01-22] MEDS: LEVOTHYROXINE 50 MCG TAB PO SCH (07:03)
[2018-01-22] MEDS: HYDROmorphone 2 MG TAB PO PRN ×4 (07:03→22:24)
[2018-01-22 07:36] LABS: Anion Gap 12 mmol/L; Blood Urea Nitrogen 8 mg/dL (7-17); Calcium 8.8 mg/dL (8.4-10.2); Carbon Dioxide 17 mmol/L (22-30); Chloride 114 mmol/L (98-107); Glucose 119 mg/dL (74-99); Potassium 3.9 mmol/L (3.5-5.1); Sodium 143 mmol/L (137-145)
[2018-01-22] MEDS: METOPROLOL SUCCINATE (ER) 100 MG TAB.ER.24H PO SCH (07:53)
[2018-01-22] MEDS: FAMOTIDINE 20 MG TAB PO SCH ×2 (07:53→20:42)
[2018-01-22] MEDS: METOCLOPRAMIDE 10 MG TAB PO SCH ×4 (07:53→20:43)
[2018-01-22] MEDS: FERROUS SULFATE 325 MG TAB PO SCH ×2 (07:53→20:41)
[2018-01-22] MEDS: TOPIRAMATE 25 MG TAB PO SCH ×2 (07:54→20:42)
[2018-01-22] MEDS: VANCOMYCIN 1,750 MG in SODIUM CHLORIDE 0.9% 250 ML IVPB SCH ×3 (07:54→23:50)
[2018-01-22] MEDS ORDERED: VANCOMYCIN 1,750 MG in SODIUM CHLORIDE 0.9% 250 ML IVPB SCH (08:00)
[2018-01-22] MEDS: ONDANSETRON 4 MG TAB PO PRN ×2 (08:26→20:42)
[2018-01-22 11:17] LABS: Glucose,Whole Blood 123 mg/dL (75-99)
--- NOTE | 2018-01-22 13:55 | P.HPIM ---
History of Present Illness This is a 37-year-old female with complex past medical history noted below who presented to the hospital with a fever at home of 102.0 associated with abdominal discomfort and nausea. Patient was recently treated with multiple courses of antibiotic for an underlying urinary tract infection. She was concerned about her symptoms yesterday and presented to the emergency room. In the emergency room, T-max was 100.8. Patient was slightly tachycardic. A urine sample was grossly contaminated with numerous squamous cell noted. Patient was admitted to the hospital and was started on broad-spectrum antibiotic awaiting blood culture. Review of Systems Review of system: 14 points review of systems were obtained and were negative except to what were mentioned in the HPI. Past Medical History Past Medical History: Chest Pain / Angina, CVA/TIA, Diabetes Mellitus, Deep Vein Thrombosis (DVT), Neurologic Disorder, Syncope, Thyroid Disorder Additional Past Medical History / Comment(s): Dysautonomia-progressive neurological disorder, lupus/LUPUS ANTICOAGULANTS, 2004 CVA without residual, ana maria's disease, lymphedema Lt arm d/t DVTs , v-tach, pituitary microadenoma. "mitochondrial disease". patent foramen ovale, narcolepsy, gastropareis, IDDM type II, uti's, falls, orthostatic hypotension/syncope, migraines with hemiplegia, pernicious anemia, polycystic ovarian syndrome, neuropathy bilateral legs/fee-mild, uterine ablation August 2015/patient no longer has periods. History of Any Multi-Drug Resistant Organisms: ESBL, MRSA Date of last positivie culture/infection: 03/09/17,09/13/17 ESBL MDRO Source:: LEFT ARM, URINE ECOLI Past Surgical History: Uterine Ablation Additional Past Surgical History / Comment(s): colonscopy/egd, angie, stress test. Past Anesthesia/Blood Transfusion Reactions: No Reported Reaction Additional Past Anesthesia/Blood Transfusion Reaction / Comment(s): patient states "It takes a lot of anesthesia for my body to react". Pt has received blood in past without reaction. Past Psychological History: Bipolar, Depression Additional Psychological History / Comment(s): Pt resides with her parents. She can walk short distances. She uses a wheelchair as well. She has a walker but doesn't use it. She does not drive she gets [place] by bus or cab. She has hx of suicide attempt in 2014 but states that depression is stable at this time. No animal exposures. No tobacco or alcohol use. Single without children. Does not relate to other family members with her genetic disorder Smoking Status: Never smoker Past Alcohol Use History: None Reported Additional Past Alcohol Use History / Comment(s): Patient is a lifelong nonsmoker. She denies any medical marijuana, marijuana, street drug or alcohol use. Past Drug Use History: None Reported - Past Family History Brother(s) Family Medical History: Diabetes Mellitus, Hyperlipidemia, Hypertension Additional Family Medical History / Comment(s): Patient states she has 1 brother with no major medical problems. Father Family Medical History: Hyperlipidemia, Hypertension Additional Family Medical History / Comment(s): DAD IS 70 YEARS OLD. Patient states she does not have any contact with her father and does not know his medical history. Mother Family Medical History: Chest Pain / Angina, CVA/TIA, Hyperlipidemia, Hypertension Additional Family Medical History / Comment(s): AGE 62 HAS LUPUS, blood pressure swings high to low Medications and Allergies Home Medications Medication Instructions Recorded Confirmed Type Cyanocobalamin [Vitamin B-12] 2,000 mcg PO HS 01/25/16 01/21/18 History Ferrous Sulfate [Iron (65 MG 325 mg PO BID 07/14/16 01/21/18 History Elemental)] Rivaroxaban [Xarelto] 20 mg PO HS 03/09/17 01/21/18 History tiZANidine [Zanaflex] 8 mg PO HS 03/09/17 01/21/18 History Levothyroxine Sodium [Synthroid] 50 mcg PO DAILY 07/29/17 01/21/18 History Levothyroxine Sodium [Synthroid] 200 mcg PO DAILY 07/29/17 01/21/18 History Metoclopramide [Reglan] 10 mg PO ACHS 07/29/17 01/21/18 History Insulin Glargine [Lantus] 30 unit SQ HS vial 08/05/17 01/21/18 Rx Insulin Aspart [NovoLOG Flexpen] See Protocol SQ AC-TID 09/13/17 01/21/18 History Topiramate [Topamax] 75 mg PO BID 09/13/17 01/21/18 History Ondansetron [Zofran] 8 mg PO Q6HR PRN 09/25/17 01/21/18 History Trimethobenzamide HCl [Tigan] 300 mg PO TID PRN 09/25/17 01/21/18 History Metoprolol Succinate (ER) [Toprol 100 mg PO DAILY 10/24/17 01/21/18 History XL] Ranitidine HCl 150 mg PO BID 12/17/17 01/21/18 History HYDROmorphone [Dilaudid] 2 mg PO Q4HR PRN #60 tab 01/05/18 01/21/18 Rx Nitrofurantoin Monohyd/M-Cryst 100 mg PO Q12HR 01/21/18 01/21/18 History [Macrobid] Allergies Allergy/AdvReac Type Severity Reaction Status Date / Time barium sulfate Allergy Anaphylaxis Verified 01/21/18 17:17 diphtheria, pertussis, Allergy Unknown Verified 01/21/18 17:17 tetanus vacc doxepin [Doxepin] Allergy Anaphylaxis Verified 01/21/18 17:17 influenza virus vaccine, Allergy Rash/Hives Verified 01/21/18 17:17 specific [Influenza Virus Vacc,Specific] promethazine HCl Allergy Anaphylaxis Verified 01/21/18 17:17 [From Phenergan] doxycycline AdvReac Nausea & Verified 01/21/18 17:17 Vomiting & Diarrhea Pertussis Vaccines AdvReac fever/seizu Verified 01/21/18 17:17 re pseudoephedrine AdvReac Chest Pain Verified 01/21/18 17:17 pseudoephedrine HCl AdvReac Chest Pain Verified 01/21/18 17:17 [From Sudafed] sulfamethoxazole AdvReac Nausea & Verified 01/21/18 17:17 [From Bactrim] Vomiting trimethoprim [From Bactrim] AdvReac Nausea & Verified 01/21/18 17:17 Vomiting Physical Exam Vitals: Vital Signs Temp Pulse Pulse Resp BP BP Pulse Ox 01/22/18 07:00 97.7 F 84 18 102/57 99 01/22/18 00:00 104 H 16 01/21/18 23:00 98.8 F 104 H 16 147/89 94 L 01/21/18 21:06 98.7 F 99 20 125/68 98 01/21/18 18:54 111 H 18 119/78 95 01/21/18 18:09 100.8 F H 110 H 16 132/72 94 L 01/21/18 16:53 100.0 F H 128 H 18 157/90 96 Intake and Output 01/21/18 01/22/18 01/22/18 22:59 06:59 14:59 Intake Total 590 1100 Balance 590 1100 Intake: Intake, IV Titration 1100 Amount Sodium Chloride 0.9% 1, 600 000 ml @ 75 mls/hr IV . [id number] JOSE Rx#:[id number] Vancomycin 2,250 mg In 500 Sodium Chloride 0.9% 500 ml @ 167 mls/hr IVPB ONCE STA Rx#:[id number] Oral 590 Other: Voiding Method Toilet Toilet # Voids 2 1 Weight 108.862 kg General: The patient is awake and alert, in no distress Eye: there is normal conjunctiva bilaterally. Neck: The neck is supple, there is no JVD. Cardiovascular: Normal S1-S2, no S3-S4, no murmurs. Respiratory: Lungs clear to auscultation bilaterally Gastrointestinal: Abdomen is soft, nontender Musculoskeletal: There is no pedal edema. Neurological:. Speech is normal. Skin: Skin is warm and dry Results CBC & Chem 7: 01/21/18 17:17 01/22/18 07:05 Labs: Abnormal Lab Results - Last 24 Hours (Table) 01/21/18 01/21/18 01/21/18 Range/Units 17:06 17:17 17:17 WBC 12.0 H (3.8-10.6) k/uL Neutrophils # 9.8 H (1.3-7.7) k/uL Chloride 108 H (98-107) mmol/L Carbon Dioxide 16 L (22-30) mmol/L Creatinine (0.52-1.04) mg/dL Glucose 214 H (74-99) mg/dL POC Glucose (mg/dL) (75-99) mg/dL Plasma Lactic Acid Joce (0.7-2.0) mmol/L AST 40 H (14-36) U/L Urine Appearance Cloudy H (Clear) Urine Protein 1+ H (Negative) Urine Ketones 1+ H (Negative) Urine Blood Trace H (Negative) Urine RBC 8 H (0-5) /hpf Ur Squamous Epith Cells 6 H (0-4) /hpf Urine Bacteria Rare H (None) /hpf Hyaline Casts 8 H (0-2) /lpf Urine Mucus Occasional H (None) /hpf 01/21/18 01/22/18 01/22/18 Range/Units 17:17 07:00 07:05 WBC (3.8-10.6) k/uL Neutrophils # (1.3-7.7) k/uL Chloride 114 H (98-107) mmol/L Carbon Dioxide 17 L (22-30) mmol/L Creatinine 0.50 L (0.52-1.04) mg/dL Glucose 119 H (74-99) mg/dL POC Glucose (mg/dL) 116 H (75-99) mg/dL Plasma Lactic Acid Joce 5.6 H* (0.7-2.0) mmol/L AST (14-36) U/L Urine Appearance (Clear) Urine Protein (Negative) Urine Ketones (Negative) Urine Blood (Negative) Urine RBC (0-5) /hpf Ur Squamous Epith Cells (0-4) /hpf Urine Bacteria (None) /hpf Hyaline Casts (0-2) /lpf Urine Mucus (None) /hpf 01/22/18 Range/Units 11:13 WBC (3.8-10.6) k/uL Neutrophils # (1.3-7.7) k/uL Chloride (98-107) mmol/L Carbon Dioxide (22-30) mmol/L Creatinine (0.52-1.04) mg/dL Glucose (74-99) mg/dL POC Glucose (mg/dL) 123 H (75-99) mg/dL Plasma Lactic Acid Joce (0.7-2.0) mmol/L AST (14-36) U/L Urine Appearance (Clear) Urine Protein (Negative) Urine Ketones (Negative) Urine Blood (Negative) Urine RBC (0-5) /hpf Ur Squamous Epith Cells (0-4) /hpf Urine Bacteria (None) /hpf Hyaline Casts (0-2) /lpf Urine Mucus (None) /hpf Microbiology - Last 24 Hours (Table) 01/21/18 17:06 Urine Culture - Preliminary Urine,Voided Assessment and Plan Assessment: 1. Fever, Matte home of 102.0 T-max here in the hospital 100.8. Exact etiology unclear. Urinalysis was grossly contaminated. I would repeat another urine. No upper respiratory tract infection. Blood culture pending. Computed tomography scan of the abdomen unremarkable. 2. Recent UTI with culture growing strep agalactia 3. Underlying lupus anticoagulant disorder on anticoagulation with Rivaroxaban 4. 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 I would consult infectious disease for further evaluation. I can't identify source of infection.
[2018-01-22 16:00] LABS: Appearance,Urine Clear (Clear); Bacteria,Urine Rare /hpf; Bilirubin,Urine Negative (Negative); Blood,Urine Trace (Negative); Color,Urine Yellow; Glucose,Urine (UA) Negative (Negative); Granular Casts,Urine 1 /lpf (0); Ketones,Urine Negative (Negative); Leukocyte Esterase,Urine Negative (Negative); Mucus,Urine Rare /hpf; Nitrite,Urine Negative (Negative); PH, Urine 6.5 (5.0-8.0); Protein,Urine Negative (Negative); RBC,Urine 5 /hpf (0-5); Specific Gravity,Urine 1.017 (1.001-1.035); Squamous Epithelial Cell,Urine 1 /hpf (0-4); Urobilinogen,Urine <2.0 mg/dL (<2.0); WBC,Urine 2 /hpf (0-5)
[2018-01-22 17:06] LABS: Glucose,Whole Blood 105 mg/dL (75-99)
[2018-01-22] MEDS: cefTRIAXone IN SWFI 1,000 MG/10 ML SYRINGE IVP SCH (17:51)
[2018-01-22 20:09] LABS: Glucose,Whole Blood 135 mg/dL (75-99)
[2018-01-22] MEDS: SODIUM CHLORIDE 0.9% 1,000 ML IV SCH (20:41)
[2018-01-22] MEDS: tiZANidine 4 MG TAB PO SCH (20:41)
[2018-01-22] MEDS: CYANOCOBALAMIN 500 MCG TAB PO SCH (20:42)
[2018-01-22] MEDS: RIVAROXABAN 20 MG TAB PO SCH (20:42)
[2018-01-22] MEDS: INSULIN DETEMIR 100 UNIT/ML 10 ML VIAL SQ SCH (20:43)
--- NOTE | 2018-01-22 23:37 | CONS ---
CONSULTATION DATE OF SERVICE: 01/22/2018. REASON FOR CONSULTATION: Urinary tract infection. HISTORY OF PRESENT ILLNESS: The patient is a 37-year-old female with a past medical history significant for recurrent urinary tract infection, who was recently admitted to this facility from 12/10/2017 until 01/05/2018. At that time, the patient did have a urine culture positive for Streptococcus agalactiae. The patient says she was treated with oral Ceftin, however, recently started having her symptoms coming back, mostly with some frequency and dysuria, and also having pain in the right upper abdominal and left flank area. Pain is described as more of a dull aching pain, 4 to 5/10, with some radiation to the front of the abdominal area. The patient felt nauseated but it, but no vomiting and no diarrhea. The patient started having a fever, that did concern her and she came to the ER last night for further evaluation of the same. The patient has been evaluated by the ER physician. The patient did have a CT of the abdomen and pelvis which showed kidney with no masses evident, no hydronephrosis, no cyst. Some chronic colonic diverticulosis, but no acute diverticulitis, and normal appendix. The patient has been admitted to the hospital. She was started on Rocephin 1 g daily. Infectious Disease was consulted for further recommendations regarding antibiotic therapy. The patient is also on the vancomycin. REVIEW OF SYSTEMS: CONSTITUTIONAL: Positive for weakness. She did have a low-grade fever on presentation to hospital of 100.8. EYES: No complaint. ENT: No complaint. ENT: No complaint. RESPIRATORY: No complaint. CARDIOVASCULAR: No complaint. GENITOURINARY: As per HPI. GASTROINTESTINAL: As per HPI. MUSCULOSKELETAL: No complaint. PSYCHOLOGICAL: No complaint. PAST MEDICAL HISTORY: Significant for diabetes mellitus, history of DVT, syncope, hypothyroidism, dysautonomia, recurrent UTI, history of ESBL and MRSA infection and left arm infection. PAST SURGICAL HISTORY: Uterine ablation, EGD, colonoscopy. SOCIAL HISTORY: No history of smoking, drinking, or drug use. FAMILY HISTORY: Mother with history of diabetes, hypertension, hyperlipidemia. Father with history of hypertension and hyperlipidemia. Mother with history of CVA and TIA. ALLERGIES: Barium sulfate and multiple vaccines. MEDICATIONS: The patient is currently on vancomycin pharmacy dose, she is on Tigan, Topamax, Zanaflex, Xarelto, Zofran, Narcan, Toprol-XL, Reglan, Synthroid, Levemir, Dilaudid, iron sulfate, vitamin, Rocephin 1 g daily and Tylenol. PHYSICAL EXAMINATION: Blood pressure is 112/61 with a pulse of 78, temperature of 98, T-max is 100.8. She is 97% on room air. GENERAL DESCRIPTION: A middle-aged female lying in bed in no distress. No tachypnea or accessory muscle of respiration use. HEENT: Shows no pallor or scleral icterus. Oral mucosa is moist. NECK: Trachea central. No thyromegaly. LUNGS: Unlabored breathing. Clear to auscultation with crackles. HEART: S1, S2. Regular rate and rhythm. ABDOMEN: Soft, mildly tender in the right flank area. No guarding. No organomegaly. EXTREMITIES: No edema of the feet. SKIN: No rashes or mass palpable. NEUROLOGIC: The patient is awake, alert, oriented x3. Mood and affect normal. LABS: Hemoglobin is 13.1, white count of 12,000. BUN of 8, creatinine 0.50. Urine positive. Urine for was negative. Blood culture obtained, currently pending. Urine obtained from the 3rd is showing group B strep. DIAGNOSTIC IMPRESSION AND PLAN: Patient admitted to the hospital with sepsis in a patient who did have a fever of 100.8. Patient was tachycardic, heart rate in 120s. The patient did have elevated white count of 12,000, meeting criteria for systemic inflammatory response syndrome/sepsis, source likely urine secondary to urinary symptoms in addition to the pain in the right flank area, likely possible pyelonephritis. The patient did have a CT of the abdomen and pelvis that was negative for any structural abnormality or hydronephrosis. The patient also has clinical focus of infection. PLAN: 1. The patient is to continue Rocephin 1 g. Urine is showing a Streptococcus agalactiae. Discontinue vancomycin as no resistant gram-positive has been grown to decrease risk of nephrotoxicity. 2. The patient is known to Dr. Hansen and he will be signed out to him tomorrow for continued followup care. All her questions were answered. MMODL / IJN: [id number] /
[2018-01-23] MEDS: SODIUM CHLORIDE 0.9% 1,000 ML IV SCH (05:43)
[2018-01-23] MEDS: HYDROmorphone 2 MG TAB PO PRN ×4 (05:43→23:24)
[2018-01-23] MEDS: LEVOTHYROXINE 100 MCG TAB PO SCH (05:44)
[2018-01-23] MEDS: LEVOTHYROXINE 50 MCG TAB PO SCH (05:44)
[2018-01-23] MEDS ORDERED: VANCOMYCIN TROUGH DUE 1 EACH MISC MISCELLANE ONE (07:00)
[2018-01-23 07:13] LABS: Glucose,Whole Blood 121 mg/dL (75-99)
[2018-01-23 07:56] LABS: Anion Gap 13 mmol/L; Blood Urea Nitrogen 7 mg/dL (7-17); Calcium 9.5 mg/dL (8.4-10.2); Carbon Dioxide 17 mmol/L (22-30); Chloride 113 mmol/L (98-107); Glucose 122 mg/dL (74-99); Potassium 4.1 mmol/L (3.5-5.1); Sodium 143 mmol/L (137-145)
[2018-01-23] MEDS: FAMOTIDINE 20 MG TAB PO SCH ×2 (08:13→21:28)
[2018-01-23] MEDS: METOPROLOL SUCCINATE (ER) 100 MG TAB.ER.24H PO SCH (08:14)
[2018-01-23] MEDS: TOPIRAMATE 25 MG TAB PO SCH ×2 (08:14→21:29)
[2018-01-23] MEDS: METOCLOPRAMIDE 10 MG TAB PO SCH ×4 (08:14→21:28)
[2018-01-23] MEDS: FERROUS SULFATE 325 MG TAB PO SCH ×2 (08:14→21:28)
[2018-01-23] MEDS: ONDANSETRON 4 MG TAB PO PRN ×2 (08:45→17:40)
[2018-01-23] MEDS: VANCOMYCIN 1,750 MG in SODIUM CHLORIDE 0.9% 250 ML IVPB SCH (08:46)
--- NOTE | 2018-01-23 10:49 | P.PN ---
Subjective Progress Note Date: 01/23/18 This is a 37-year-old female with complex past medical history noted below who presented to the hospital with a fever at home of 102.0 associated with abdominal discomfort and nausea. Patient was recently treated with multiple courses of antibiotic for an underlying urinary tract infection. She was concerned about her symptoms yesterday and presented to the emergency room. In the emergency room, T-max was 100.8. Patient was slightly tachycardic. A urine sample was grossly contaminated with numerous squamous cell noted. Patient was admitted to the hospital and was started on broad-spectrum antibiotic awaiting blood culture. Patient lying in bed comfortably. She is complaining still of some back pain and burning with urination. She has been afebrile. She is being treated for UTI and possible right-sided pyelonephritis. May remains on Rocephin. Infectious disease is following. Blood cultures are negative. Repeat urinalysis shows trace blood and rare bacteria Objective - Vital Signs Vital signs: Vital Signs Temp 98.0 F 01/23/18 07:00 Pulse 77 01/23/18 08:00 Resp 16 01/23/18 08:00 BP 119/64 01/23/18 07:00 Pulse Ox 96 01/23/18 07:00 Intake & Output 01/22/18 01/23/18 01/23/18 18:59 06:59 18:59 Intake Total 775 440 Balance 775 440 Intake: Intake, IV Titration 775 Amount Sodium Chloride 0.9% 1, 525 000 ml @ 75 mls/hr IV . [id number] JOSE Rx#:[id number] Vancomycin 1,750 mg In 250 Sodium Chloride 0.9% 250 ml @ 125 mls/hr IVPB Q8HR JOSE Rx#:[id number] Oral 440 Other: Voiding Method Toilet Toilet Toilet # Voids 1 - Exam Head normocephalic Neck supple Lungs clear to auscultation bilaterally no wheezing or crackles Heart regular rate and rhythm S1-S2, no rub or gallop Abdomen is soft nontender nondistended positive bowel sounds no hepatosplenomegaly. Right-sided CVA tenderness Extremities no edema Neuro alert and orientated to 3 - Labs CBC & Chem 7: 01/21/18 17:17 01/23/18 07:07 Labs: Abnormal Lab Results - Last 24 Hours (Table) 01/22/18 01/22/18 01/22/18 Range/Units 11:13 14:50 17:02 Chloride (98-107) mmol/L Carbon Dioxide (22-30) mmol/L Glucose (74-99) mg/dL POC Glucose (mg/dL) 123 H 105 H (75-99) mg/dL Urine Blood Trace H (Negative) Urine Bacteria Rare H (None) /hpf Urine Mucus Rare H (None) /hpf 01/22/18 01/23/18 01/23/18 Range/Units 20:06 07:07 07:12 Chloride 113 H (98-107) mmol/L Carbon Dioxide 17 L (22-30) mmol/L Glucose 122 H (74-99) mg/dL POC Glucose (mg/dL) 135 H 121 H (75-99) mg/dL Urine Blood (Negative) Urine Bacteria (None) /hpf Urine Mucus (None) /hpf Microbiology - Last 24 Hours (Table) 01/21/18 17:06 Urine Culture - Final Urine,Voided Strep agalactiae - (group b) 01/21/18 17:19 Blood Culture - Preliminary Blood No Growth after 24 hours 01/21/18 17:17 Blood Culture - Preliminary Blood No Growth after 24 hours Assessment and Plan Assessment: 1. UTI and possible right-sided pyelonephritis with sepsis: Repeat urinalysis showing improvement. Failed outpatient antibiotics with a recent UTI with urine culture growing strep agalactia. Currently on Rocephin. Infectious disease following. Blood cultures are negative 2. Underlying lupus anticoagulant disorder on anticoagulation with Xarelto 3. History of mitochondrial DNA depletion syndrome 4. Insulin dependent diabetes mellitus: Blood sugar stable continue his current medications 5. Headaches: On oral Dilaudid GI prophylaxis Pepcid and DVT prophylaxis Xarelto Anticipate discharge possibly tomorrow. We'll await final recommendations for antibiotics per infectious disease
[2018-01-23] MEDS: TRIMETHOBENZAMIDE 300 MG CAP PO PRN (10:57)
[2018-01-23 11:12] LABS: Glucose,Whole Blood 156 mg/dL (75-99)
--- NOTE | 2018-01-23 14:51 | CDI ---
Last Revision, October 2017 Documentation Clarification Form Date: 01/23/2018 2:19:00 PM From: Kathryn Davis RN, CCDS Admit Date: 01/21/2018 8:36:00 PM Patient Name: Francisca Khoury Visit Number: [id number] Discharge Date: ATTENTION: The Clinical Documentation Specialists (CDI) and [facility] Coding Staff appreciate your assistance in clarifying documentation. Please respond to the clarification below the line at the bottom and electronically sign. The CDI & [facility] Coding staff will review the response and follow-up if needed. Please note: Queries are made part of the Legal Health Record. If you have any questions, please contact the author of this message via ITS. Dr. Maryellen Joel/Karla Hartman PA-C 01/23/18 progress note had documentation of possible right-sided pyelonephritis Patient history/risk factors: DM type II, CVA, Lupus Anticoagulants, Uterine ablation, Clinical Indicators: Present with complaint of dysuria, right flank pain, and fever. Patient has been treated for UTI over the past several weeks. She has had persistent fever with temperature on admission 100.8. Lab findings: WSBC 12, Lactic acid 5.6, repeat lactate is 1.4 CT abdomen/pelvis: Urinary bladder normal, Vital Signs: 132/72 110 16 100.8 Treatment: Consults: ID: Admit with sepsis, source likely urine secondary to urinary symptoms in addition, pain in the right flank area, likely possible pyelonephritis. In your professional opinion, can you please clarify pyelonephritis? Acute Pyelonephritis Chronic Pyelonephritis Other, please specify Unable to determine Please continue to document in your progress notes and discharge summary in order to capture severity of illness and risk of mortality. Include clinical findings that support your diagnosis. MTDD
[2018-01-23] MEDS: cefTRIAXone IN SWFI 1,000 MG/10 ML SYRINGE IVP SCH (17:38)
--- NOTE | 2018-01-23 21:00 | P.PN ---
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 And has progressive dysautonomia which is directly affecting her ability to ambulate. She also has a history of hemiplegic migraines. Was recently hospitalized and is doing relatively well from the difficulties from her migraines. She'll ordering that last dated have evidence of the Streptococcus urinary tract infection was treated with antibiotic therapy that included oral agent at discharge since she was not having significant sepsis. Patient is now having what appears to be recurrence of her urinary infection or ongoing infection with the same agent. She Has Been Admitted for Treatment of Her Significant Discomfort As Well As Her Nausea and Emesis and Generalized Pain. She's feeling slightly better this afternoon but still feels much more poorly than her baseline. She is denying high-grade fevers or chills at this time they 've improved since admission. Is having some difficulty with her IV access. Objective - Vital Signs Vital signs: Vital Signs Temp 97.9 F 01/23/18 15:00 Pulse 80 01/23/18 16:00 Resp 16 01/23/18 16:00 BP 121/70 01/23/18 15:00 Pulse Ox 95 01/23/18 15:00 Intake & Output 01/23/18 01/23/18 01/24/18 06:59 18:59 06:59 Intake Total 1080 Balance 1080 Intake: Intake, IV Titration 400 Amount Sodium Chloride 0.9% 1, 150 000 ml @ 75 mls/hr IV . [id number] JOSE Rx#:[id number] Vancomycin 1,750 mg In 250 Sodium Chloride 0.9% 250 ml @ 125 mls/hr IVPB Q8HR JOSE Rx#:[id number] Oral 680 Other: Voiding Method Toilet Toilet # Voids 1 - Exam 37-year-old female with 26 ER visits in the last 3 years HEENT: Anicteric conjunctiva are pink and moist nasal mucosa grossly intact without significant lesions, there is no thrush. Neck: The neck is supple, no significant stiffness is noted without significant lymphadenopathy or thyromegaly. Lungs: Good bilateral air entry without significant crackles or wheezing. There is no significant bronchial sounds. There is no egophony or dullness. Heart: Regular rate and rhythm with an audible S1-S2, no S3 no S4. There is no significant murmur click or rub, PMI was nondisplaced. Abdomen: Positive bowel sounds soft and nontender without palpable masses or organomegaly. There was no guarding or rebound. There is significant flank tenderness to the right but not to the left. Extremities: The upper extremities have excellent pulses they are symmetric, no significant petechiae or telangiectasia. No splinter hemorrhages were noted. The lower extremities are free from significant edema. The peripheral pulses were 2+ and symmetric. Neuro: Awake alert oriented to person place and time. She complains of generalized weakness which is not new. - Labs CBC & Chem 7: 01/21/18 17:17 01/23/18 07:07 Labs: Abnormal Lab Results - Last 24 Hours (Table) 01/23/18 01/23/18 01/23/18 Range/Units 07:07 07:12 11:07 Chloride 113 H (98-107) mmol/L Carbon Dioxide 17 L (22-30) mmol/L Glucose 122 H (74-99) mg/dL POC Glucose (mg/dL) 121 H 156 H (75-99) mg/dL Microbiology - Last 24 Hours (Table) 01/21/18 17:19 Blood Culture - Preliminary Blood No Growth after 48 hours 01/21/18 17:17 Blood Culture - Preliminary Blood No Growth after 48 hours 01/21/18 17:06 Urine Culture - Final Urine,Voided Strep agalactiae - (group b) Laboratory Results WBC 12.0 k/uL (3.8-10.6) H 01/21/18 17:17 RBC 4.59 m/uL (3.80-5.40) 01/21/18 17:17 Hgb 13.1 gm/dL (11.4-16.0) 01/21/18 17:17 Hct 39.5 % (34.0-46.0) 01/21/18 17:17 MCV 86.0 fL (80.0-100.0) D 01/21/18 17:17 MCH 28.5 pg (25.0-35.0) 01/21/18 17:17 MCHC 33.2 g/dL (31.0-37.0) 01/21/18 17:17 RDW 14.1 % (11.5-15.5) 01/21/18 17:17 Plt Count 352 k/uL (150-450) 01/21/18 17:17 Neutrophils % 82 % 01/21/18 17:17 Lymphocytes % 12 % 01/21/18 17:17 Monocytes % 5 % 01/21/18 17:17 Eosinophils % 1 % 01/21/18 17:17 Basophils % 0 % 01/21/18 17:17 Neutrophils # 9.8 k/uL (1.3-7.7) H 01/21/18 17:17 Lymphocytes # 1.4 k/uL (1.0-4.8) 01/21/18 17:17 Monocytes # 0.6 k/uL (0-1.0) 01/21/18 17:17 Eosinophils # 0.1 k/uL (0-0.7) 01/21/18 17:17 Basophils # 0.0 k/uL (0-0.2) 01/21/18 17:17 PT 10.4 sec (9.0-12.0) 01/21/18 17:17 INR 1.1 (<1.2) 01/21/18 17:17 APTT 26.9 sec (22.0-30.0) 01/21/18 17:17 Sodium 143 mmol/L (137-145) 01/23/18 07:07 Potassium 4.1 mmol/L (3.5-5.1) 01/23/18 07:07 Chloride 113 mmol/L (98-107) H 01/23/18 07:07 Carbon Dioxide 17 mmol/L (22-30) L 01/23/18 07:07 Anion Gap 13 mmol/L 01/23/18 07:07 BUN 7 mg/dL (7-17) 01/23/18 07:07 Creatinine 0.53 mg/dL (0.52-1.04) 01/23/18 07:07 Est GFR (MDRD) Af Amer >60 (>60 ml/min/1.73 sqM) 01/23/18 07:07 Est GFR (MDRD) Non-Af >60 (>60 ml/min/1.73 sqM) 01/23/18 07:07 Glucose 122 mg/dL (74-99) H 01/23/18 07:07 POC Glucose (mg/dL) 156 mg/dL (75-99) H 01/23/18 11:07 POC Glu Senior Windows Administrator ID Heaven Feliz 01/23/18 11:07 Lactic Ac Sepsis Rflx Y 01/21/18 17:48 Plasma Lactic Acid Joce 1.8 mmol/L (0.7-2.0) 01/21/18 21:47 Calcium 9.5 mg/dL (8.4-10.2) 01/23/18 07:07 Total Bilirubin 0.3 mg/dL (0.2-1.3) 01/21/18 17:17 AST 40 U/L (14-36) H 01/21/18 17:17 ALT 31 U/L (9-52) 01/21/18 17:17 Alkaline Phosphatase 96 U/L (38-126) 01/21/18 17:17 Total Protein 7.8 g/dL (6.3-8.2) 01/21/18 17:17 Albumin 4.7 g/dL (3.5-5.0) 01/21/18 17:17 Urine Color Yellow 01/22/18 14:50 Urine Appearance Clear (Clear) 01/22/18 14:50 Urine pH 6.5 (5.0-8.0) 01/22/18 14:50 Ur Specific [place] 1.017 (1.001-1.035) 01/22/18 14:50 Urine Protein Negative (Negative) 01/22/18 14:50 Urine Glucose (UA) Negative (Negative) 01/22/18 14:50 Urine Ketones Negative (Negative) 01/22/18 14:50 Urine Blood Trace (Negative) H 01/22/18 14:50 Urine Nitrite Negative (Negative) 01/22/18 14:50 Urine Bilirubin Negative (Negative) 01/22/18 14:50 Urine Urobilinogen <2.0 mg/dL (<2.0) 01/22/18 14:50 Ur Leukocyte Esterase Negative (Negative) 01/22/18 14:50 Urine RBC 5 /hpf (0-5) 01/22/18 14:50 Urine WBC 2 /hpf (0-5) 01/22/18 14:50 Ur Squamous Epith Cells 1 /hpf (0-4) 01/22/18 14:50 Urine Bacteria Rare /hpf (None) H 01/22/18 14:50 Hyaline Casts 8 /lpf (0-2) H 01/21/18 17:06 Granular Casts 1 /lpf (0) 01/22/18 14:50 Urine Mucus Rare /hpf (None) H 01/22/18 14:50 Urine HCG, Qual Not Detected (Not Detectd) 01/21/18 17:06 Vancomycin Trough 18.5 ug/mL 01/23/18 07:07 Microbiology 01/21/18 17:19 Blood Blood Culture - Preliminary No Growth after 48 hours 01/21/18 17:17 Blood Blood Culture - Preliminary No Growth after 48 hours 01/21/18 17:06 Urine,Voided Urine Culture - Final Strep agalactiae - (group b) - Imaging and Cardiology CT scan - abdomen: report reviewed (No evidence of hydronephrosis only diverticulosis seen no diverticulitis) Assessment and Plan (1) Urinary tract infection Narrative/Plan: 37-year-old female who has a mitochondrial syndrome with progressive debility also has lupus-like disorder. Was recently hospitalized which point in time she was quite ill and was found evidence of a group B streptococcus urinary tract infection as well as her severe migraines. The migraines have resolved but she presents back with fever some leukocytosis and ongoing urinary symptoms and is now developed some right flank pain. There is concern is ongoing urinary tract infection as well as upper tract infection to the right system but no evidence of hydronephrosis is seen. No renal abscess was identified on the computed tomography scan. Given the patient's main difficulty she is being treated with ceftriaxone and seems to be having a good response. Given the failure of the outpatient oral antibiotic therapy will plan on a 21 day course of intravenous antibiotic in the home setting with Rocephin. We've asked for a midline catheter to be placed in a Xarelto was held. Suggest that she tries Pedialyte or similar oral rehydration solution to help her hydration at this time. 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
[2018-01-23] MEDS: tiZANidine 4 MG TAB PO SCH (21:28)
[2018-01-23] MEDS: CYANOCOBALAMIN 500 MCG TAB PO SCH (21:28)
[2018-01-23] MEDS: INSULIN DETEMIR 100 UNIT/ML 10 ML VIAL SQ SCH (21:38)
[2018-01-24] MEDS: LEVOTHYROXINE 50 MCG TAB PO SCH (06:05)
[2018-01-24] MEDS: LEVOTHYROXINE 100 MCG TAB PO SCH (06:05)
[2018-01-24 06:56] LABS: Glucose,Whole Blood 123 mg/dL (75-99)
[2018-01-24] MEDS: METOCLOPRAMIDE 10 MG TAB PO SCH ×4 (07:16→21:07)
[2018-01-24] MEDS: HYDROmorphone 2 MG TAB PO PRN ×4 (07:19→22:22)
[2018-01-24 07:29] LABS: Basophils % (A) 0 %; Eosinophils # (A) 0.2 k/uL (0-0.7); Eosinophils % (A) 3 %; HCT 34.2 % (34.0-46.0); HGB 11.2 gm/dL (11.4-16.0); Lymphocytes % (A) 25 %; MCH 28.2 pg (25.0-35.0); MCHC 32.8 g/dL (31.0-37.0); Mean Platelet Volume 7.5; Monocytes # (A) 0.6 k/uL (0-1.0); Monocytes % (A) 7 %; Neutrophils # (A) 5.1 k/uL (1.3-7.7); Neutrophils % (A) 64 %; Platelet Count 286 k/uL (150-450); RBC 3.98 m/uL (3.80-5.40); RDW 14.2 % (11.5-15.5); WBC 7.9 k/uL (3.8-10.6)
[2018-01-24 08:03] LABS: Anion Gap 14 mmol/L; Blood Urea Nitrogen 8 mg/dL (7-17); Calcium 9.6 mg/dL (8.4-10.2); Carbon Dioxide 19 mmol/L (22-30); Chloride 110 mmol/L (98-107); Glucose 113 mg/dL (74-99); Potassium 4.1 mmol/L (3.5-5.1); Sodium 143 mmol/L (137-145)
[2018-01-24] MEDS: FAMOTIDINE 20 MG TAB PO SCH ×2 (08:14→21:06)
[2018-01-24] MEDS: TOPIRAMATE 25 MG TAB PO SCH ×2 (08:15→21:07)
[2018-01-24] MEDS: METOPROLOL SUCCINATE (ER) 100 MG TAB.ER.24H PO SCH (08:15)
[2018-01-24] MEDS: FERROUS SULFATE 325 MG TAB PO SCH ×2 (08:15→21:08)
[2018-01-24] MEDS: ONDANSETRON 4 MG TAB PO PRN (08:46)
--- NOTE | 2018-01-24 12:03 | P.DS ---
Providers Date of admission: 01/21/18 20:36 Expected date of discharge: 01/24/18 Attending physician: Maryellen Joel Consults: 01/22/18 13:52 Consult Physician Routine Consulting Provider: Jerson Hansen Consult Reason/Comments: Sepsis Do you want consulting provider notified?: Yes Primary care physician: Maryellen Joel [facility] Course: Discharge diagnosis 1. UTI and possible acute right-sided pyelonephritis with sepsis: Repeat urinalysis showing improvement. Failed outpatient antibiotics with a recent UTI with urine culture growing strep agalactia. Blood cultures are negative. Seen by infectious disease. The recommending Rocephin 1 g IV daily for 21 days 2. Underlying lupus anticoagulant disorder on anticoagulation with Xarelto 3. History of mitochondrial DNA depletion syndrome 4. Insulin dependent diabetes mellitus: Blood sugar stable continue his current medications 5. Headaches: On oral Dilaudid Hospital course This is a 37-year-old female with complex past medical history noted below who presented to the hospital with a fever at home of 102.0 associated with abdominal discomfort and nausea. Patient was recently treated with multiple courses of antibiotic for an underlying urinary tract infection. She was concerned about her symptoms yesterday and presented to the emergency room. In the emergency room, T-max was 100.8. Patient was slightly tachycardic. A urine sample was grossly contaminated with numerous squamous cell noted. Patient was admitted to the hospital and was started on broad-spectrum antibiotic. Seen by infectious disease. She is maintained on IV Rocephin. Repeat urinalysis showing improvement. Blood cultures remain negative. Patient did have an abdominal computed tomography scan no evidence of hydronephrosis or renal abscess. Patient failed outpatient antibiotic treatment. Infections disease is recommending 21 days of IV antibiotics with Rocephin. Midline catheter inserted. beef cattle farm manager arranging home antibiotics. Patient is medically stable for discharge. Patient will follow up with Dr. Joel and Dr. Hansen in 1 week I performed an examination of the patient and discussed their management with the physician Director Of Volunteer Services. I have reviewed the Physician Director Of Volunteer Services's notes and agree with the documented findings and plan of care Patient Condition at Discharge: Stable Plan - Discharge Summary New Discharge Prescriptions: New cefTRIAXone [Rocephin] 1,000 mg IVP Q24H #21 syringe Continue Cyanocobalamin [Vitamin B-12] 2,000 mcg PO HS Ferrous Sulfate [Iron (65 MG Elemental)] 325 mg PO BID tiZANidine [Zanaflex] 8 mg PO HS Rivaroxaban [Xarelto] 20 mg PO HS Metoclopramide [Reglan] 10 mg PO ACHS Levothyroxine Sodium [Synthroid] 200 mcg PO DAILY Levothyroxine Sodium [Synthroid] 50 mcg PO DAILY Insulin Glargine [Lantus] 30 unit SQ HS vial Topiramate [Topamax] 75 mg PO BID Insulin Aspart [NovoLOG Flexpen] See Protocol SQ AC-TID Trimethobenzamide HCl [Tigan] 300 mg PO TID PRN PRN Reason: Nausea Ondansetron [Zofran] 8 mg PO Q6HR PRN PRN Reason: Nausea And Vomiting Metoprolol Succinate (ER) [Toprol XL] 100 mg PO DAILY Ranitidine HCl 150 mg PO BID HYDROmorphone [Dilaudid] 2 mg PO Q4HR PRN #60 tab PRN Reason: Moderate Pain Discontinued Nitrofurantoin Monohyd/M-Cryst [Macrobid] 100 mg PO Q12HR Discharge Medication List Cyanocobalamin [Vitamin B-12] 2,000 mcg PO HS 01/25/16 [History] Ferrous Sulfate [Iron (65 MG Elemental)] 325 mg PO BID 07/14/16 [History] Rivaroxaban [Xarelto] 20 mg PO HS 03/09/17 [History] tiZANidine [Zanaflex] 8 mg PO HS 03/09/17 [History] Levothyroxine Sodium [Synthroid] 50 mcg PO DAILY 07/29/17 [History] Levothyroxine Sodium [Synthroid] 200 mcg PO DAILY 07/29/17 [History] Metoclopramide [Reglan] 10 mg PO ACHS 07/29/17 [History] Insulin Glargine [Lantus] 30 unit SQ HS vial 08/05/17 [Rx] Insulin Aspart [NovoLOG Flexpen] See Protocol SQ AC-TID 09/13/17 [History] Topiramate [Topamax] 75 mg PO BID 09/13/17 [History] Ondansetron [Zofran] 8 mg PO Q6HR PRN 09/25/17 [History] Trimethobenzamide HCl [Tigan] 300 mg PO TID PRN 11/05/17 [History] Metoprolol Succinate (ER) [Toprol XL] 100 mg PO DAILY 10/24/17 [History] Ranitidine HCl 150 mg PO BID 12/17/17 [History] HYDROmorphone [Dilaudid] 2 mg PO Q4HR PRN #60 tab 01/05/18 [Rx] cefTRIAXone [Rocephin] 1,000 mg IVP Q24H #21 syringe 01/24/18 [Rx] Follow up Appointment(s)/Referral(s): Maryellen Joel MD [Primary Care Provider] - 1 Week Jerson Hansen MD [STAFF PHYSICIAN] - 1 Week Discharge Disposition: HOME WITH HOME HEALTH SERVICES
[2018-01-24] MEDS: TRIMETHOBENZAMIDE 300 MG CAP PO PRN (15:11)
[2018-01-24] MEDS: cefTRIAXone IN SWFI 1,000 MG/10 ML SYRINGE IVP SCH (18:03)
[2018-01-24] MEDS: CYANOCOBALAMIN 500 MCG TAB PO SCH (21:06)
[2018-01-24] MEDS: tiZANidine 4 MG TAB PO SCH (21:07)
[2018-01-24 21:22] LABS: Glucose,Whole Blood 135 mg/dL (75-99)
[2018-01-24] MEDS: INSULIN DETEMIR 100 UNIT/ML 10 ML VIAL SQ SCH (21:26)
[2018-01-24 21:56] VITALS: RESP 16
--- NOTE | 2018-01-24 22:48 | P.PN ---
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 She has a lupus-like syndrome. And has progressive dysautonomia which is directly affecting her ability to ambulate. She also has a history of hemiplegic migraines. Was recently hospitalized and is doing relatively well from the difficulties from her migraines. She'll ordering that last dated have evidence of the Streptococcus urinary tract infection was treated with antibiotic therapy that included oral agent at discharge since she was not having significant sepsis. Patient is now having what appears to be recurrence of her urinary infection or ongoing infection with the same agent. She Has Been Admitted for Treatment of Her Significant Discomfort As Well As Her Nausea and Emesis and Generalized Pain. She's feeling slightly better this afternoon but still feels much more poorly than her baseline. She is denying high-grade fevers or chills at this time they 've improved since admission. Is having some difficulty with her IV access 01/24/2018 patient is now much more content that the midline catheter has been placed for IV access. She is denying symptoms such as fever, chills, rigors or sweats today. Other than some headache she feels considerably better. She's eating well. Without other new pain. Anticipates going home once antibiotics are authorized Objective - Vital Signs Vital signs: Vital Signs Temp 98.4 F 01/24/18 21:55 Pulse 73 01/24/18 21:55 Resp 16 01/24/18 21:55 BP 133/90 01/24/18 21:55 Pulse Ox 95 01/24/18 21:55 Intake & Output 01/24/18 01/24/18 01/25/18 06:59 18:59 06:59 Intake Total 800 Balance 800 Weight 108.862 kg Intake: Oral 800 Other: Voiding Method Toilet Toilet # Voids 1 1 - Exam 37-year-old female with 26 ER visits in the last 3 years HEENT: Anicteric conjunctiva are pink and moist nasal mucosa grossly intact without significant lesions, there is no thrush. Neck: The neck is supple, no significant stiffness is noted without significant lymphadenopathy or thyromegaly. Lungs: Good bilateral air entry without significant crackles or wheezing. There is no significant bronchial sounds. There is no egophony or dullness. Heart: Regular rate and rhythm with an audible S1-S2, no S3 no S4. There is no significant murmur click or rub, PMI was nondisplaced. Abdomen: Positive bowel sounds soft and nontender without palpable masses or organomegaly. There was no guarding or rebound. There is significant flank tenderness to the right but not to the left. Extremities: The upper extremities have excellent pulses they are symmetric, no significant petechiae or telangiectasia. No splinter hemorrhages were noted. The lower extremities are free from significant edema. The peripheral pulses were 2+ and symmetric. Neuro: Awake alert oriented to person place and time. She complains of generalized weakness which is not new. - Labs CBC & Chem 7: 01/24/18 06:44 01/24/18 06:44 Labs: Abnormal Lab Results - Last 24 Hours (Table) 01/24/18 01/24/18 01/24/18 Range/Units 06:44 06:44 06:50 Hgb 11.2 L (11.4-16.0) gm/dL Chloride 110 H (98-107) mmol/L Carbon Dioxide 19 L (22-30) mmol/L Glucose 113 H (74-99) mg/dL POC Glucose (mg/dL) 123 H (75-99) mg/dL 01/24/18 Range/Units 21:19 Hgb (11.4-16.0) gm/dL Chloride (98-107) mmol/L Carbon Dioxide (22-30) mmol/L Glucose (74-99) mg/dL POC Glucose (mg/dL) 135 H (75-99) mg/dL Microbiology - Last 24 Hours (Table) 01/21/18 17:19 Blood Culture - Preliminary Blood No Growth after 72 hours 01/21/18 17:17 Blood Culture - Preliminary Blood No Growth after 72 hours Laboratory Results WBC 7.9 k/uL (3.8-10.6) 01/24/18 06:44 RBC 3.98 m/uL (3.80-5.40) 01/24/18 06:44 Hgb 11.2 gm/dL (11.4-16.0) L 01/24/18 06:44 Hct 34.2 % (34.0-46.0) 01/24/18 06:44 MCV 86.0 fL (80.0-100.0) 01/24/18 06:44 MCH 28.2 pg (25.0-35.0) 01/24/18 06:44 MCHC 32.8 g/dL (31.0-37.0) 01/24/18 06:44 RDW 14.2 % (11.5-15.5) 01/24/18 06:44 Plt Count 286 k/uL (150-450) 01/24/18 06:44 Neutrophils % 64 % 01/24/18 06:44 Lymphocytes % 25 % 01/24/18 06:44 Monocytes % 7 % 01/24/18 06:44 Eosinophils % 3 % 01/24/18 06:44 Basophils % 0 % 01/24/18 06:44 Neutrophils # 5.1 k/uL (1.3-7.7) 01/24/18 06:44 Lymphocytes # 2.0 k/uL (1.0-4.8) 01/24/18 06:44 Monocytes # 0.6 k/uL (0-1.0) 01/24/18 06:44 Eosinophils # 0.2 k/uL (0-0.7) 01/24/18 06:44 Basophils # 0.0 k/uL (0-0.2) 01/24/18 06:44 PT 10.4 sec (9.0-12.0) 01/21/18 17:17 INR 1.1 (<1.2) 01/21/18 17:17 APTT 26.9 sec (22.0-30.0) 01/21/18 17:17 Sodium 143 mmol/L (137-145) 01/24/18 06:44 Potassium 4.1 mmol/L (3.5-5.1) 01/24/18 06:44 Chloride 110 mmol/L (98-107) H 01/24/18 06:44 Carbon Dioxide 19 mmol/L (22-30) L 01/24/18 06:44 Anion Gap 14 mmol/L 01/24/18 06:44 BUN 8 mg/dL (7-17) 01/24/18 06:44 Creatinine 0.55 mg/dL (0.52-1.04) 01/24/18 06:44 Est GFR (MDRD) Af Amer >60 (>60 ml/min/1.73 sqM) 01/24/18 06:44 Est GFR (MDRD) Non-Af >60 (>60 ml/min/1.73 sqM) 01/24/18 06:44 Glucose 113 mg/dL (74-99) H 01/24/18 06:44 POC Glucose (mg/dL) 135 mg/dL (75-99) H 01/24/18 21:19 POC Glu Teacher Specialist Rocio Khoury 01/24/18 21:19 Lactic Ac Sepsis Rflx Y 01/21/18 17:48 Plasma Lactic Acid Joce 1.8 mmol/L (0.7-2.0) 01/21/18 21:47 Calcium 9.6 mg/dL (8.4-10.2) 01/24/18 06:44 Total Bilirubin 0.3 mg/dL (0.2-1.3) 01/21/18 17:17 AST 40 U/L (14-36) H 01/21/18 17:17 ALT 31 U/L (9-52) 01/21/18 17:17 Alkaline Phosphatase 96 U/L (38-126) 01/21/18 17:17 Total Protein 7.8 g/dL (6.3-8.2) 01/21/18 17:17 Albumin 4.7 g/dL (3.5-5.0) 01/21/18 17:17 Urine Color Yellow 01/22/18 14:50 Urine Appearance Clear (Clear) 01/22/18 14:50 Urine pH 6.5 (5.0-8.0) 01/22/18 14:50 Ur Specific [place] 1.017 (1.001-1.035) 01/22/18 14:50 Urine Protein Negative (Negative) 01/22/18 14:50 Urine Glucose (UA) Negative (Negative) 01/22/18 14:50 Urine Ketones Negative (Negative) 01/22/18 14:50 Urine Blood Trace (Negative) H 01/22/18 14:50 Urine Nitrite Negative (Negative) 01/22/18 14:50 Urine Bilirubin Negative (Negative) 01/22/18 14:50 Urine Urobilinogen <2.0 mg/dL (<2.0) 01/22/18 14:50 Ur Leukocyte Esterase Negative (Negative) 01/22/18 14:50 Urine RBC 5 /hpf (0-5) 01/22/18 14:50 Urine WBC 2 /hpf (0-5) 01/22/18 14:50 Ur Squamous Epith Cells 1 /hpf (0-4) 01/22/18 14:50 Urine Bacteria Rare /hpf (None) H 01/22/18 14:50 Hyaline Casts 8 /lpf (0-2) H 01/21/18 17:06 Granular Casts 1 /lpf (0) 01/22/18 14:50 Urine Mucus Rare /hpf (None) H 01/22/18 14:50 Urine HCG, Qual Not Detected (Not Detectd) 01/21/18 17:06 Vancomycin Trough 18.5 ug/mL 01/23/18 07:07 Microbiology 01/21/18 17:19 Blood Blood Culture - Preliminary No Growth after 72 hours 01/21/18 17:17 Blood Blood Culture - Preliminary No Growth after 72 hours 01/21/18 17:06 Urine,Voided Urine Culture - Final Strep agalactiae - (group b) Assessment and Plan (1) Urinary tract infection Narrative/Plan: 37-year-old female who has a mitochondrial syndrome with progressive debility also has lupus-like disorder. Was recently hospitalized which point in time she was quite ill and was found evidence of a group B streptococcus urinary tract infection as well as her severe migraines. The migraines have resolved but she presents back with fever some leukocytosis and ongoing urinary symptoms and is now developed some right flank pain. There is concern is ongoing urinary tract infection as well as upper tract infection to the right system but no evidence of hydronephrosis is seen. No renal abscess was identified on the computed tomography scan. Given the patient's main difficulty she is being treated with ceftriaxone and seems to be having a good response. Given the failure of the outpatient oral antibiotic therapy will plan on a 21 day course of intravenous antibiotic in the home setting with Rocephin. We've asked for a midline catheter to be placed in a Xarelto was held. Suggest that she tries Pedialyte or similar oral rehydration solution to help her hydration at this time. 01/24/2018 as noted patient is improving. Having a good response to the current antibiotic therapy of Rocephin. Arranging for 21 days of Rocephin as an outpatient. Midline catheter is been placed for IV access for home. We'll follow-up in the office at the end of her therapy weekly blood work requested. 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
[2018-01-25] MEDS: HYDROmorphone 2 MG TAB PO PRN ×2 (05:19→10:14)
[2018-01-25] MEDS: LEVOTHYROXINE 50 MCG TAB PO SCH (06:27)
[2018-01-25] MEDS: LEVOTHYROXINE 100 MCG TAB PO SCH (06:29)
[2018-01-25] MEDS: FAMOTIDINE 20 MG TAB PO SCH (08:24)
[2018-01-25] MEDS: FERROUS SULFATE 325 MG TAB PO SCH (08:24)
[2018-01-25] MEDS: METOCLOPRAMIDE 10 MG TAB PO SCH ×2 (08:24→12:27)
[2018-01-25] MEDS: TOPIRAMATE 25 MG TAB PO SCH (08:24)
[2018-01-25] MEDS: METOPROLOL SUCCINATE (ER) 100 MG TAB.ER.24H PO SCH (08:24)
[2018-01-25 08:25] VITALS: BP 110/66; PULSE 53; TEMP 97.6
[2018-01-25 08:54] LABS: Basophils % (A) 0 %; Eosinophils # (A) 0.3 k/uL (0-0.7); Eosinophils % (A) 3 %; HCT 37.6 % (34.0-46.0); Lymphocytes # (A) 1.9 k/uL (1.0-4.8); Lymphocytes % (A) 22 %; MCH 28.9 pg (25.0-35.0); MCHC 34.6 g/dL (31.0-37.0); MCV 83.6 fL (80.0-100.0); Mean Platelet Volume 7.5; Monocytes # (A) 0.5 k/uL (0-1.0); Monocytes % (A) 6 %; Neutrophils % (A) 68 %; Platelet Count 336 k/uL (150-450); RDW 14.1 % (11.5-15.5); WBC 8.8 k/uL (3.8-10.6)
[2018-01-25 09:46] LABS: Anion Gap 14 mmol/L; Blood Urea Nitrogen 11 mg/dL (7-17); Calcium 9.8 mg/dL (8.4-10.2); Carbon Dioxide 19 mmol/L (22-30); Chloride 109 mmol/L (98-107); Glucose 109 mg/dL (74-99); Potassium 4.6 mmol/L (3.5-5.1); Sodium 142 mmol/L (137-145)
[2018-01-25] MEDS: ONDANSETRON 4 MG TAB PO PRN (10:14)
--- NOTE | 2018-01-25 12:10 | P.PN ---
Subjective Progress Note Date: 01/25/18 This is a 37-year-old female with complex past medical history noted below who presented to the hospital with a fever at home of 102.0 associated with abdominal discomfort and nausea. Patient was recently treated with multiple courses of antibiotic for an underlying urinary tract infection. She was concerned about her symptoms yesterday and presented to the emergency room. In the emergency room, T-max was 100.8. Patient was slightly tachycardic. A urine sample was grossly contaminated with numerous squamous cell noted. Patient was admitted to the hospital and was started on broad-spectrum antibiotic awaiting blood culture. On 01/25/2018 patient is alert and oriented 3 complaining of mild pain in the right flank area, she is awaiting insurance improvement for discharge home on IV antibiotics. Objective - Vital Signs Vital signs: Vital Signs Temp 97.6 F 01/25/18 07:00 Pulse 53 L 01/25/18 07:00 Resp 16 01/25/18 07:00 BP 110/66 01/25/18 07:00 Pulse Ox 98 01/25/18 07:00 Intake & Output 01/24/18 01/25/18 01/25/18 18:59 06:59 18:59 Intake Total 800 550 Balance 800 550 Weight 108.862 kg Intake: Oral 800 550 Other: Voiding Method Toilet Toilet Toilet # Voids 1 - Exam Head normocephalic and atraumatic Neck supple no JVD Lungs clear to auscultation bilaterally no wheezing or crackles Heart regular rate and rhythm S1-S2, no rub or gallop Abdomen is soft nontender nondistended positive bowel sounds no hepatosplenomegaly. Right-sided CVA tenderness Extremities no edema Neuro alert and orientated to 3 - Labs CBC & Chem 7: 01/25/18 07:57 01/25/18 07:57 Labs: Abnormal Lab Results - Last 24 Hours (Table) 01/24/18 01/25/18 Range/Units 21:19 07:57 Chloride 109 H (98-107) mmol/L Carbon Dioxide 19 L (22-30) mmol/L Glucose 109 H (74-99) mg/dL POC Glucose (mg/dL) 135 H (75-99) mg/dL Microbiology - Last 24 Hours (Table) 01/21/18 17:19 Blood Culture - Preliminary Blood No Growth after 72 hours 01/21/18 17:17 Blood Culture - Preliminary Blood No Growth after 72 hours Assessment and Plan Plan: 1. UTI and possible acute right-sided pyelonephritis with sepsis: Repeat urinalysis showing improvement. Failed outpatient antibiotics with a recent UTI with urine culture growing strep agalactia. Blood cultures are negative. Seen by infectious disease. The recommending Rocephin 1 g IV daily for 21 days. Awaiting insurance approval for discharge home 2. Underlying lupus anticoagulant disorder on anticoagulation with Xarelto 3. History of mitochondrial DNA depletion syndrome 4. Insulin dependent diabetes mellitus: Blood sugar stable continue his current medications 5. Headaches: On oral Dilaudid
[2018-01-25] MEDS: cefTRIAXone IN SWFI 1,000 MG/10 ML SYRINGE IVP SCH (12:27)
== END 2018-01-25 15:55 | disposition home health service (06) | DRG 872 ==
LOC: EC 16:49 → 5MS5E 20:36
PROVIDERS: ADMIT Internal Medicine; ATTEND Internal Medicine
PROC: 05HY33Z Insertion of Infusion Device into Upper Vein, Percutaneous Approach (ICD-10-PCS; principal; 2018-01-25)
DX: A40.1 Sepsis due to streptococcus, group B (principal); D68.62 Lupus anticoagulant syndrome; E11.42 Type 2 diabetes mellitus with diabetic polyneuropathy; E88.40 Mitochondrial metabolism disorder, unspecified; E11.43 Type 2 diabetes mellitus with diabetic autonomic (poly)neuropathy; Q21.1 Atrial septal defect; N10 Acute pyelonephritis; G43.409 Hemiplegic migraine, not intractable, without status migrainosus; K31.84 Gastroparesis; G90.1 Familial dysautonomia [Riley-Day]; D51.0 Vitamin B12 deficiency anemia due to intrinsic factor deficiency; I95.1 Orthostatic hypotension; E03.9 Hypothyroidism, unspecified; G47.419 Narcolepsy without cataplexy; K57.30 Diverticulosis of large intestine without perforation or abscess without bleeding; E28.2 Polycystic ovarian syndrome; Z79.4 Long term (current) use of insulin; Z79.01 Long term (current) use of anticoagulants; Z79.899 Other long term (current) drug therapy; Z91.81 History of falling; Z86.14 Personal history of Methicillin resistant Staphylococcus aureus infection; Z86.19 Personal history of other infectious and parasitic diseases; Z86.718 Personal history of other venous thrombosis and embolism; Z86.73 Personal history of transient ischemic attack (TIA), and cerebral infarction without residual deficits; Z91.5 Personal history of self-harm; Z86.59 Personal history of other mental and behavioral disorders; Z88.2 Allergy status to sulfonamides; Z88.7 Allergy status to serum and vaccine; Z88.8 Allergy status to other drugs, medicaments and biological substances
CPT/HCPCS: 0; 36415; 74177; 80048; 80053; 80202; 81001; 81025; 83605; 85025; 85610; 85730; 87040; 87086; 96361; 96374; 96375; 99291

== ENCOUNTER 2018-02-01 16:52 | Inpatient (IN) | payer MEDICARE, OTHER ==
[2018-02-01] MEDS ORDERED: SODIUM CHLORIDE 0.9% 1,000 ML IV STA ×2 (17:22→20:16)
[2018-02-01] MEDS ORDERED: ONDANSETRON 4 MG/2 ML VIAL IVP STA (17:22)
[2018-02-01] MEDS ORDERED: METOCLOPRAMIDE 5 MG/ML 2 ML VIAL IVP STA (17:22)
--- NOTE | 2018-02-01 17:26 | ED ---
General Adult HPI - General Chief complaint: Fever Stated complaint: Fever Time Seen by Provider: 02/01/18 17:15 Source: patient, RN notes reviewed Mode of arrival: wheelchair Limitations: no limitations - History of Present Illness Initial comments: 37-year-old female presents to the emergency department with flank pain, dysuria , and nausea. Patient failed outpatient treatment of Macrobid and was admitted for sepsis from UTI on 01/21/2018. She is still experiencing some dysuria and flank pain although she was told this could persist for a few weeks after antibiotics. Patient is nauseous and unable to keep food or liquids down. She spoke with Dr. Joel about this and he told her she should go to the emergency department. She has been on 1 g IV of Rocephin outpatient. Patient states she talked with Dr. Hansen today who is switching her from Rocephin to Invanz. Patient currently denies any shortness of breath or chest pain. She is sitting pleasantly in the exam room. - Related Data Home Medications Medication Instructions Recorded Confirmed Cyanocobalamin [Vitamin B-12] 2,000 mcg PO HS 01/25/16 02/01/18 Ferrous Sulfate [Iron (65 MG 325 mg PO BID 07/14/16 02/01/18 Elemental)] Rivaroxaban [Xarelto] 20 mg PO HS 03/09/17 02/01/18 tiZANidine [Zanaflex] 8 mg PO HS 03/09/17 02/01/18 Levothyroxine Sodium [Synthroid] 50 mcg PO DAILY 07/29/17 02/01/18 Levothyroxine Sodium [Synthroid] 200 mcg PO DAILY 07/29/17 02/01/18 Metoclopramide [Reglan] 10 mg PO ACHS 07/29/17 02/01/18 Insulin Aspart [NovoLOG Flexpen] See Protocol SQ AC-TID 09/13/17 02/01/18 Topiramate [Topamax] 75 mg PO BID 09/13/17 02/01/18 Ondansetron [Zofran] 8 mg PO Q6HR PRN 09/25/17 02/01/18 Trimethobenzamide HCl [Tigan] 300 mg PO TID PRN 09/25/17 02/01/18 Metoprolol Succinate (ER) [Toprol 100 mg PO DAILY 10/24/17 02/01/18 XL] Ranitidine HCl 150 mg PO BID 12/17/17 02/01/18 Previous Rx's Medication Instructions Recorded Insulin Glargine [Lantus] 30 unit SQ HS vial 08/05/17 HYDROmorphone [Dilaudid] 2 mg PO Q4HR PRN #60 tab 01/05/18 cefTRIAXone [Rocephin] 1,000 mg IVP Q24H #21 syringe 01/24/18 Ertapenem [INVanz] 1 gm IVPB Q24H #7 bag 01/31/18 Allergies Allergy/AdvReac Type Severity Reaction Status Date / Time barium sulfate Allergy Anaphylaxis Verified 02/01/18 17:08 diphtheria, pertussis, Allergy Unknown Verified 02/01/18 17:08 tetanus vacc doxepin [Doxepin] Allergy Anaphylaxis Verified 02/01/18 17:08 influenza virus vaccine, Allergy Rash/Hives Verified 02/01/18 17:08 specific [Influenza Virus Vacc,Specific] promethazine HCl Allergy Anaphylaxis Verified 02/01/18 17:08 [From Phenergan] doxycycline AdvReac Nausea & Verified 02/01/18 17:08 Vomiting & Diarrhea Pertussis Vaccines AdvReac fever/seizu Verified 02/01/18 17:08 re pseudoephedrine AdvReac Chest Pain Verified 02/01/18 17:08 pseudoephedrine HCl AdvReac Chest Pain Verified 02/01/18 17:08 [From Sudafed] sulfamethoxazole AdvReac Nausea & Verified 02/01/18 17:08 [From Bactrim] Vomiting trimethoprim [From Bactrim] AdvReac Nausea & Verified 02/01/18 17:08 Vomiting Review of Systems ROS Statement: Those systems with pertinent positive or pertinent negative responses have been documented in the HPI. ROS Other: All systems not noted in ROS Statement are negative. Past Medical History Past Medical History: Chest Pain / Angina, CVA/TIA, Diabetes Mellitus, Deep Vein Thrombosis (DVT), Neurologic Disorder, Syncope, Thyroid Disorder Additional Past Medical History / Comment(s): Dysautonomia-progressive neurological disorder, lupus/LUPUS ANTICOAGULANTS, 2004 CVA without residual, ana maria's disease, lymphedema Lt arm d/t DVTs , v-tach, pituitary microadenoma. "mitochondrial disease". patent foramen ovale, narcolepsy, gastropareis, IDDM type II, uti's, falls, orthostatic hypotension/syncope, migraines with hemiplegia, pernicious anemia, polycystic ovarian syndrome, neuropathy bilateral legs/fee-mild, uterine ablation August 2015/patient no longer has periods. History of Any Multi-Drug Resistant Organisms: ESBL, MRSA Date of last positivie culture/infection: 03/09/17,09/13/17 ESBL MDRO Source:: LEFT ARM, URINE ECOLI Past Surgical History: Uterine Ablation Additional Past Surgical History / Comment(s): colonscopy/egd, angie, stress test. Past Anesthesia/Blood Transfusion Reactions: No Reported Reaction Additional Past Anesthesia/Blood Transfusion Reaction / Comment(s): patient states "It takes a lot of anesthesia for my body to react". Pt has received blood in past without reaction. Past Psychological History: Bipolar, Depression Smoking Status: Never smoker Past Alcohol Use History: None Reported Past Drug Use History: None Reported - Past Family History Brother(s) Family Medical History: Diabetes Mellitus, Hyperlipidemia, Hypertension Additional Family Medical History / Comment(s): Patient states she has 1 brother with no major medical problems. Father Family Medical History: Hyperlipidemia, Hypertension Additional Family Medical History / Comment(s): DAD IS 70 YEARS OLD. Patient states she does not have any contact with her father and does not know his medical history. Mother Family Medical History: Chest Pain / Angina, CVA/TIA, Hyperlipidemia, Hypertension Additional Family Medical History / Comment(s): AGE 62 HAS LUPUS, blood pressure swings high to low General Exam Limitations: no limitations Head exam: Present: atraumatic, normocephalic, normal inspection Neck exam: Present: normal inspection. Absent: tenderness, meningismus, lymphadenopathy Respiratory exam: Present: normal lung sounds bilaterally. Absent: respiratory distress, wheezes, rales, rhonchi, stridor Cardiovascular Exam: Present: regular rate, normal rhythm, normal heart sounds. Absent: systolic murmur, diastolic murmur, rubs, gallop, clicks GI/Abdominal exam: Present: soft, tenderness (Tenderness to the right upper and lower quadrants.), normal bowel sounds. Absent: distended, guarding, rebound, rigid Back exam: Present: CVA tenderness (R), CVA tenderness (L) Neurological exam: Present: alert, oriented X3, CN II-XII intact Psychiatric exam: Present: normal affect Skin exam: Present: warm, dry, intact, normal color. Absent: rash Course Vital Signs 02/01/18 02/01/18 16:53 18:47 Temperature 100.2 F H 100.2 F H Pulse Rate 129 H 114 H Respiratory 18 18 Rate Blood Pressure 129/88 139/91 O2 Sat by Pulse 99 96 Oximetry Medical Decision Making - Medical Decision Making 37-year-old female presents to the emergency department today for chief complaint of nausea, low back pain, and dysuria. Patient has been being treated for urosepsis by Dr. Hansen and Dr. Joel. Patient spoke with Dr. Joel earlier today and he referred her to the emergency department due to her back of ability to keep food or drinks down because of her nausea. He is concerned for further infection according to the patient. Vitals showed a fever of 100.2 and pulse rate of 114-129. Blood pressure was 129-139/88-91. Labs were drawn on the patient. Patient's white count was 13.3. Her plasma lactic acid was 3.0. Urine did show rare bacteria and trace leuk esterase. Hyaline casts were also noted in the urine. Blood cultures and urine cultures were taken before antibiotics were given. Patient was started on IV Zosyn and given [address] Joel was consulted and recommended admitting her to the hospital on IV Zosyn q 8hr. Dr. Hansen will be consulted in-hospital. - Lab Data Result diagrams: 02/01/18 17:46 02/01/18 17:46 Lab Results 02/01/18 02/01/18 02/01/18 Range/Units 17:46 17:46 17:46 WBC 13.3 H (3.8-10.6) k/uL RBC 4.89 (3.80-5.40) m/uL Hgb 13.5 (11.4-16.0) gm/dL Hct 41.9 (34.0-46.0) % MCV 85.6 (80.0-100.0) fL MCH 27.7 (25.0-35.0) pg MCHC 32.4 (31.0-37.0) g/dL RDW 14.0 (11.5-15.5) % Plt Count 421 (150-450) k/uL Neutrophils % 78 % Lymphocytes % 14 % Monocytes % 6 % Eosinophils % 1 % Basophils % 0 % Neutrophils # 10.4 H (1.3-7.7) k/uL Lymphocytes # 1.9 (1.0-4.8) k/uL Monocytes # 0.8 (0-1.0) k/uL Eosinophils # 0.1 (0-0.7) k/uL Basophils # 0.0 (0-0.2) k/uL Sodium 145 (137-145) mmol/L Potassium 4.0 (3.5-5.1) mmol/L Chloride 109 H (98-107) mmol/L Carbon Dioxide 16 L (22-30) mmol/L Anion Gap 20 mmol/L BUN 12 (7-17) mg/dL Creatinine 0.60 (0.52-1.04) mg/dL Est GFR (CKD-EPI)AfAm >90 (>60 ml/min/1.73 sqM) Est GFR (CKD-EPI)NonAf >90 (>60 ml/min/1.73 sqM) Glucose 139 H (74-99) mg/dL Plasma Lactic Acid Joce 3.0 H* (0.7-2.0) mmol/L Calcium 10.4 H (8.4-10.2) mg/dL Total Bilirubin 0.5 (0.2-1.3) mg/dL AST 32 (14-36) U/L ALT 33 (9-52) U/L Alkaline Phosphatase 104 (38-126) U/L Total Protein 8.1 (6.3-8.2) g/dL Albumin 4.8 (3.5-5.0) g/dL HCG, Quant <2.4 mIU/mL Urine Color Urine Appearance (Clear) Urine pH (5.0-8.0) Ur Specific [place] (1.001-1.035) Urine Protein (Negative) Urine Glucose (UA) (Negative) Urine Ketones (Negative) Urine Blood (Negative) Urine Nitrite (Negative) Urine Bilirubin (Negative) Urine Urobilinogen (<2.0) mg/dL Ur Leukocyte Esterase (Negative) Urine RBC (0-5) /hpf Urine WBC (0-5) /hpf Ur Squamous Epith Cells (0-4) /hpf Urine Bacteria (None) /hpf Hyaline Casts (0-2) /lpf Urine Mucus (None) /hpf 02/01/18 Range/Units 17:46 WBC (3.8-10.6) k/uL RBC (3.80-5.40) m/uL Hgb (11.4-16.0) gm/dL Hct (34.0-46.0) % MCV (80.0-100.0) fL MCH (25.0-35.0) pg MCHC (31.0-37.0) g/dL RDW (11.5-15.5) % Plt Count (150-450) k/uL Neutrophils % % Lymphocytes % % Monocytes % % Eosinophils % % Basophils % % Neutrophils # (1.3-7.7) k/uL Lymphocytes # (1.0-4.8) k/uL Monocytes # (0-1.0) k/uL Eosinophils # (0-0.7) k/uL Basophils # (0-0.2) k/uL Sodium (137-145) mmol/L Potassium (3.5-5.1) mmol/L Chloride (98-107) mmol/L Carbon Dioxide (22-30) mmol/L Anion Gap mmol/L BUN (7-17) mg/dL Creatinine (0.52-1.04) mg/dL Est GFR (CKD-EPI)AfAm (>60 ml/min/1.73 sqM) Est GFR (CKD-EPI)NonAf (>60 ml/min/1.73 sqM) Glucose (74-99) mg/dL Plasma Lactic Acid Joce (0.7-2.0) mmol/L Calcium (8.4-10.2) mg/dL Total Bilirubin (0.2-1.3) mg/dL AST (14-36) U/L ALT (9-52) U/L Alkaline Phosphatase (38-126) U/L Total Protein (6.3-8.2) g/dL Albumin (3.5-5.0) g/dL HCG, Quant mIU/mL Urine Color Yellow Urine Appearance Cloudy H (Clear) Urine pH 5.5 (5.0-8.0) Ur Specific [place] 1.024 (1.001-1.035) Urine Protein 1+ H (Negative) Urine Glucose (UA) Negative (Negative) Urine Ketones 2+ H (Negative) Urine Blood Trace H (Negative) Urine Nitrite Negative (Negative) Urine Bilirubin Negative (Negative) Urine Urobilinogen <2.0 (<2.0) mg/dL Ur Leukocyte Esterase Trace H (Negative) Urine RBC 1 (0-5) /hpf Urine WBC 5 (0-5) /hpf Ur Squamous Epith Cells 4 (0-4) /hpf Urine Bacteria Rare H (None) /hpf Hyaline Casts 16 H (0-2) /lpf Urine Mucus Occasional H (None) /hpf Disposition Clinical Impression: UTI (urinary tract infection) Disposition: ADMITTED IP TO THIS HOSP Condition: Good Referrals: Maryellen Joel MD [Primary Care Provider] - 1-2 days
[2018-02-01] MEDS ORDERED: ACETAMINOPHEN TAB 500 MG TAB PO STA (17:59)
[2018-02-01 18:07] LABS: Basophils % (A) 0 %; Eosinophils # (A) 0.1 k/uL (0-0.7); Eosinophils % (A) 1 %; HCT 41.9 % (34.0-46.0); HGB 13.5 gm/dL (11.4-16.0); Lymphocytes # (A) 1.9 k/uL (1.0-4.8); Lymphocytes % (A) 14 %; MCH 27.7 pg (25.0-35.0); MCHC 32.4 g/dL (31.0-37.0); MCV 85.6 fL (80.0-100.0); Mean Platelet Volume 7.2; Monocytes # (A) 0.8 k/uL (0-1.0); Monocytes % (A) 6 %; Neutrophils # (A) 10.4 k/uL (1.3-7.7); Neutrophils % (A) 78 %; Platelet Count 421 k/uL (150-450); RBC 4.89 m/uL (3.80-5.40); WBC 13.3 k/uL (3.8-10.6)
[2018-02-01 18:13] LABS: Appearance,Urine Cloudy (Clear); Bacteria,Urine Rare /hpf; Bilirubin,Urine Negative (Negative); Blood,Urine Trace (Negative); Color,Urine Yellow; Glucose,Urine (UA) Negative (Negative); Hyaline Casts,Urine 16 /lpf (0-2); Ketones,Urine 2+ (Negative); Leukocyte Esterase,Urine Trace (Negative); Mucus,Urine Occasional /hpf; Nitrite,Urine Negative (Negative); PH, Urine 5.5 (5.0-8.0); Protein,Urine 1+ (Negative); RBC,Urine 1 /hpf (0-5); Specific Gravity,Urine 1.024 (1.001-1.035); Squamous Epithelial Cell,Urine 4 /hpf (0-4); Urobilinogen,Urine <2.0 mg/dL (<2.0); WBC,Urine 5 /hpf (0-5)
[2018-02-01 18:29] LABS: ALT 33 U/L (9-52); AST 32 U/L (14-36); Albumin 4.8 g/dL (3.5-5.0); Alkaline Phosphatase 104 U/L (38-126); Anion Gap 20 mmol/L; Blood Urea Nitrogen 12 mg/dL (7-17); Calcium 10.4 mg/dL (8.4-10.2); Carbon Dioxide 16 mmol/L (22-30); Chloride 109 mmol/L (98-107); Glucose 139 mg/dL (74-99); Sodium 145 mmol/L (137-145); Total Bilirubin 0.5 mg/dL (0.2-1.3); Total Protein 8.1 g/dL (6.3-8.2)
[2018-02-01 18:44] LABS: HCG,Quantitative Serum <2.4 mIU/mL
[2018-02-01] MEDS ORDERED: PIPERACILLIN-TAZOBACTAM 3.375 GM in DEXTROSE/WATER 1 50ML.BAG IVPB STA (19:47)
[2018-02-01] MEDS ORDERED: NALOXONE 0.4 MG/ML 1 ML VIAL IV PRN (20:18)
[2018-02-01] MEDS ORDERED: INSULIN DETEMIR 100 UNIT/ML 10 ML VIAL SQ SCH (22:15)
[2018-02-01] MEDS: tiZANidine 4 MG TAB PO SCH (22:32)
[2018-02-01] MEDS: SODIUM CHLORIDE 0.9% 1,000 ML IV SCH (22:32)
[2018-02-01] MEDS: MORPHINE SULFATE 4 MG/ML SYRINGE IVP PRN (22:32)
[2018-02-01] MEDS: RIVAROXABAN 20 MG TAB PO SCH (22:32)
[2018-02-01 22:50] VITALS: BMI 40.3
[2018-02-01] MEDS: METOCLOPRAMIDE 5 MG/ML 2 ML VIAL IVP SCH (23:59)
[2018-02-02] MEDS: MORPHINE SULFATE 4 MG/ML SYRINGE IVP PRN ×3 (03:26→13:31)
[2018-02-02] MEDS: ONDANSETRON 4 MG/2 ML VIAL IVP PRN ×3 (03:26→22:02)
[2018-02-02] MEDS: PIPERACILLIN-TAZOBACTAM 3.375 GM in DEXTROSE/WATER 1 50ML.BAG IVPB SCH ×3 (03:26→20:18)
[2018-02-02] MEDS: LEVOTHYROXINE 125 MCG TAB PO SCH (06:23)
[2018-02-02] MEDS: SODIUM CHLORIDE 0.9% 1,000 ML IV SCH ×3 (06:24→20:18)
[2018-02-02] MEDS: METOCLOPRAMIDE 5 MG/ML 2 ML VIAL IVP SCH ×4 (08:41→20:33)
[2018-02-02] MEDS: INSULIN ASPART 100 UNIT/ML 1 ML 10 ML VIAL SQ SCH ×4 (08:41→20:36)
[2018-02-02] MEDS: FERROUS SULFATE 325 MG TAB PO SCH ×2 (08:42→20:32)
[2018-02-02] MEDS: FAMOTIDINE 20 MG TAB PO SCH ×2 (08:42→20:32)
[2018-02-02] MEDS: TOPIRAMATE 25 MG TAB PO SCH ×2 (08:42→20:33)
[2018-02-02] MEDS: METOPROLOL SUCCINATE (ER) 100 MG TAB.ER.24H PO SCH (08:42)
[2018-02-02] MEDS ORDERED: LEVOTHYROXINE 50 MCG TAB PO SCH (09:00)
[2018-02-02] MEDS: TRIMETHOBENZAMIDE 300 MG CAP PO PRN ×2 (09:52→18:16)
[2018-02-02 11:45] LABS: Glucose,Whole Blood 123 mg/dL (75-99)
[2018-02-02 12:09] LABS: Hemoglobin A1C 6.4 % (4.0-6.0)
[2018-02-02] MEDS ORDERED: INSULIN ASPART 100 UNIT/ML 1 ML 10 ML VIAL SQ ONE (12:30)
[2018-02-02] MEDS ORDERED: DIPHENOX-ATROP 2.5-0.025 MG 1 EACH TAB PO PRN (13:34)
--- NOTE | 2018-02-02 13:34 | P.HPIM ---
History of Present Illness H&P Date: 02/02/18 Chief Complaint: UTI This is a 37-year-old female with a known past medical history of lupus anticoagulant disorder on anticoagulation with Xarelto, mitochondrial DNA depletion syndrome, insulin-dependent diabetes mellitus, headaches and recurrent UTI. Patient was discharged from the hospital on 01/24/2018 for UTI and possible acute right-sided pyelonephritis with sepsis. She was seen by infectious disease and they placed her on Rocephin 1 g IV daily via PICC line for 21 days. However, patient continued to have urinary symptoms. Plus she started to become febrile and having nausea and vomiting. She had 3 days or she could not keep any liquids or food down. She did go to see Dr. Joel in the office. He contacted Dr. Hansen. I Dr. Hansen had ordered Invanz to be started outpatient via her PICC line. However the Invanz was unable to get started. And patient's symptoms continued to worsen therefore she came into the emergency room. She was found to be septic with evidence of UTI. Temporal 100.2 heart rate 129 white count 13.3 lactic acid 3. Also patient had been complaining of multiple episodes of diarrhea. Stool for C. diff is negative. Patient denies any abdominal pain. Denies any chest pain or shortness of breath. She doesn't having some burning with urination with frequency and urgency. And her urine has been orange. Review of Systems Please refer to HPI otherwise unremarkable Past Medical History Past Medical History: Chest Pain / Angina, CVA/TIA, Diabetes Mellitus, Deep Vein Thrombosis (DVT), Neurologic Disorder, Syncope, Thyroid Disorder Additional Past Medical History / Comment(s): Dysautonomia-progressive neurological disorder, lupus/LUPUS ANTICOAGULANTS, 2004 CVA without residual, ana maria's disease, lymphedema Lt arm d/t DVTs , v-tach, pituitary microadenoma. "mitochondrial disease". patent foramen ovale, narcolepsy, gastropareis, IDDM type II, uti's, falls, orthostatic hypotension/syncope, migraines with hemiplegia, pernicious anemia, polycystic ovarian syndrome, neuropathy bilateral legs/fee-mild, uterine ablation August 2015/patient no longer has periods. History of Any Multi-Drug Resistant Organisms: ESBL, MRSA Date of last positivie culture/infection: 03/09/17,09/13/17 ESBL MDRO Source:: LEFT ARM, URINE ECOLI Past Surgical History: Uterine Ablation Additional Past Surgical History / Comment(s): colonscopy/egd, angie, stress test. Past Anesthesia/Blood Transfusion Reactions: No Reported Reaction Additional Past Anesthesia/Blood Transfusion Reaction / Comment(s): patient states "It takes a lot of anesthesia for my body to react". Pt has received blood in past without reaction. Past Psychological History: Bipolar, Depression Additional Psychological History / Comment(s): Pt resides with her mom. She can walk short distances. She uses a wheelchair as well. She has a walker but doesn't use it. [place] not drive [place]. She has hx of suicide attempt in 2015 but states that depression is stable at this time. No animal exposures. No tobacco or alcohol use. Single without children. Does not relate to other family members with her genetic disorder Smoking Status: Never smoker Past Alcohol Use History: None Reported Additional Past Alcohol Use History / Comment(s): Patient is a lifelong nonsmoker. She denies any medical marijuana, marijuana, street drug or alcohol use. Past Drug Use History: None Reported - Past Family History Brother(s) Family Medical History: Diabetes Mellitus, Hyperlipidemia, Hypertension Additional Family Medical History / Comment(s): Patient states she has 1 brother with no major medical problems. Father Family Medical History: Hyperlipidemia, Hypertension Additional Family Medical History / Comment(s): DAD IS 70 YEARS OLD. Patient states she does not have any contact with her father and does not know his medical history. Mother Family Medical History: Chest Pain / Angina, CVA/TIA, Hyperlipidemia, Hypertension Additional Family Medical History / Comment(s): AGE 62 HAS LUPUS, blood pressure swings high to low Medications and Allergies Home Medications Medication Instructions Recorded Confirmed Type Cyanocobalamin [Vitamin B-12] 2,000 mcg PO HS 01/25/16 02/01/18 History Ferrous Sulfate [Iron (65 MG 325 mg PO BID 07/14/16 02/01/18 History Elemental)] Rivaroxaban [Xarelto] 20 mg PO HS 03/09/17 02/01/18 History tiZANidine [Zanaflex] 8 mg PO HS 03/09/17 02/01/18 History Levothyroxine Sodium [Synthroid] 50 mcg PO DAILY 07/29/17 02/01/18 History Levothyroxine Sodium [Synthroid] 200 mcg PO DAILY 07/29/17 02/01/18 History Metoclopramide [Reglan] 10 mg PO ACHS 07/29/17 02/01/18 History Insulin Glargine [Lantus] 30 unit SQ HS vial 08/05/17 02/01/18 Rx Insulin Aspart [NovoLOG Flexpen] See Protocol SQ AC-TID 09/13/17 02/01/18 History Topiramate [Topamax] 75 mg PO BID 09/13/17 02/01/18 History Ondansetron [Zofran] 8 mg PO Q6HR PRN 09/25/17 02/01/18 History Trimethobenzamide HCl [Tigan] 300 mg PO TID PRN 09/25/17 02/01/18 History Metoprolol Succinate (ER) [Toprol 100 mg PO DAILY 10/24/17 02/01/18 History XL] Ranitidine HCl 150 mg PO BID 12/17/17 02/01/18 History HYDROmorphone [Dilaudid] 2 mg PO Q4HR PRN #60 tab 01/05/18 02/01/18 Rx cefTRIAXone [Rocephin] 1,000 mg IVP Q24H #21 syringe 01/24/18 02/01/18 Rx Ertapenem [INVanz] 1 gm IVPB Q24H #7 bag 01/31/18 02/01/18 Rx Allergies Allergy/AdvReac Type Severity Reaction Status Date / Time barium sulfate Allergy Anaphylaxis Verified 02/01/18 17:08 diphtheria, pertussis, Allergy Unknown Verified 02/01/18 17:08 tetanus vacc doxepin [Doxepin] Allergy Anaphylaxis Verified 02/01/18 17:08 influenza virus vaccine, Allergy Rash/Hives Verified 02/01/18 17:08 specific [Influenza Virus Vacc,Specific] promethazine HCl Allergy Anaphylaxis Verified 02/01/18 17:08 [From Phenergan] doxycycline AdvReac Nausea & Verified 02/01/18 17:08 Vomiting & Diarrhea Pertussis Vaccines AdvReac fever/seizu Verified 02/01/18 17:08 re pseudoephedrine AdvReac Chest Pain Verified 02/01/18 17:08 pseudoephedrine HCl AdvReac Chest Pain Verified 02/01/18 17:08 [From Sudafed] sulfamethoxazole AdvReac Nausea & Verified 02/01/18 17:08 [From Bactrim] Vomiting trimethoprim [From Bactrim] AdvReac Nausea & Verified 02/01/18 17:08 Vomiting Physical Exam Vitals: Vital Signs Temp Pulse Pulse Resp BP BP Pulse Ox 02/02/18 06:31 97.3 F L 75 18 90/60 97 02/02/18 00:00 108 H 02/01/18 21:48 99.0 F 108 H 16 136/98 97 02/01/18 20:56 99.7 F H 109 H 18 133/86 96 02/01/18 18:47 100.2 F H 114 H 18 139/91 96 02/01/18 16:53 100.2 F H 129 H 18 129/88 99 Intake and Output 02/01/18 02/02/18 02/02/18 22:59 06:59 14:59 Intake Total 375 Balance 375 Intake: Oral 375 Other: Voiding Method Toilet # Voids 1 1 Weight 110 kg Head normocephalic Neck supple Lungs clear to auscultation bilaterally no wheezing or crackles Heart regular rate and rhythm S1-S2, no rub or gallop Abdomen is soft nontender nondistended positive bowel sounds no hepatosplenomegaly. Bilateral flank pain CVA tenderness Extremities no edema Neuro alert and orientated to 3 Results CBC & Chem 7: 02/01/18 17:46 02/01/18 17:46 Labs: Abnormal Lab Results - Last 24 Hours (Table) 02/01/18 02/01/18 02/01/18 Range/Units 17:46 17:46 17:46 WBC 13.3 H (3.8-10.6) k/uL Neutrophils # 10.4 H (1.3-7.7) k/uL Chloride 109 H (98-107) mmol/L Carbon Dioxide 16 L (22-30) mmol/L Glucose 139 H (74-99) mg/dL POC Glucose (mg/dL) (75-99) mg/dL Hemoglobin A1c (4.0-6.0) % Plasma Lactic Acid Joce 3.0 H* (0.7-2.0) mmol/L Calcium 10.4 H (8.4-10.2) mg/dL Urine Appearance (Clear) Urine Protein (Negative) Urine Ketones (Negative) Urine Blood (Negative) Ur Leukocyte Esterase (Negative) Urine Bacteria (None) /hpf Hyaline Casts (0-2) /lpf Urine Mucus (None) /hpf 02/01/18 02/01/18 02/02/18 Range/Units 17:46 17:46 11:33 WBC (3.8-10.6) k/uL Neutrophils # (1.3-7.7) k/uL Chloride (98-107) mmol/L Carbon Dioxide (22-30) mmol/L Glucose (74-99) mg/dL POC Glucose (mg/dL) 123 H (75-99) mg/dL Hemoglobin A1c 6.4 H (4.0-6.0) % Plasma Lactic Acid Joce (0.7-2.0) mmol/L Calcium (8.4-10.2) mg/dL Urine Appearance Cloudy H (Clear) Urine Protein 1+ H (Negative) Urine Ketones 2+ H (Negative) Urine Blood Trace H (Negative) Ur Leukocyte Esterase Trace H (Negative) Urine Bacteria Rare H (None) /hpf Hyaline Casts 16 H (0-2) /lpf Urine Mucus Occasional H (None) /hpf Microbiology - Last 24 Hours (Table) 02/01/18 17:46 Urine Culture - Preliminary Urine,Voided Thrombosis Risk Factor Assmnt - Choose All That Apply Any of the Below Risk Factors Present?: Yes Each Factor Represents 1 point: Obesity (BMI >25), Sepsis (< 1month) Each Risk Factor Represents 3 Points: History of DVT/PE Thrombosis Risk Factor Assessment Total Risk Factor Score: 5 Thrombosis Risk Factor Assessment Level: High Risk Assessment and Plan Assessment: 1. UTI with possible pyelonephritis and sepsis present on admission: Failing outpatient antibiotics. Patient started on IV Zosyn. Infectious disease consulted. Blood culture and urine culture pending. Continue with IV fluids at 100 mL an hour 2. 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 Nausea and vomiting possibly related to the antibiotic and infection. No abdominal pain. Continue with the Zofran Tigan, Reglan. We'll add IV Protonix 5. Diarrhea possibly related to the antibiotic. C. diff negative. Will give Lomotil 6. Chronic Headaches: Continue with current pain medication 7. History of CVA GI prophylaxis Protonix and DVT prophylaxis Xarelto Time with Patient: Greater than 30 (Greater than 50% of the total time spent in counseling and coordination of care.I performed an examination of the patient and discussed their management with the physician [employer] Operator. I have reviewed the Physician [employer]'s notes and agree with the documented findings and plan of care)
[2018-02-02] MEDS: PANTOPRAZOLE 40 MG/10 ML VIAL IVP SCH (13:50)
[2018-02-02 17:09] LABS: Glucose,Whole Blood 88 mg/dL (75-99)
[2018-02-02] MEDS: MORPHINE ORAL SOLN 10 MG/5 ML CUP PO PRN ×2 (18:14→22:03)
[2018-02-02] MEDS: tiZANidine 4 MG TAB PO SCH (20:32)
[2018-02-02] MEDS: RIVAROXABAN 20 MG TAB PO SCH (20:32)
[2018-02-02] MEDS: CYANOCOBALAMIN 500 MCG TAB PO SCH (20:32)
[2018-02-02 20:36] LABS: Glucose,Whole Blood 122 mg/dL (75-99)
[2018-02-02] MEDS: INSULIN DETEMIR 100 UNIT/ML 10 ML VIAL SQ SCH (20:36)
--- NOTE | 2018-02-03 00:09 | P.CONS ---
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 She has a lupus-like syndrome. And has progressive dysautonomia which is directly affecting her ability to ambulate. She also has a history of hemiplegic migraines . Recently he has had a significant urinary tract infection and was being treated with outpatient intravenous antibiotic therapy with Rocephin due to her failure of prior oral antibiotic therapy. She is doing well but then suddenly developed significant nausea emesis and some diarrhea. She has chronic gastroparesis was having difficulty tolerating food. Antibiotic therapy was transitioned to Invanz but before she could take her first dose she became so weak she presented to the emergency center. There she had evidence of hypovolemia and sepsis with a elevated lactic acid which however could be on the basis of her significant mitochondrial disease. Responded well to fluid resuscitation and was brought into hospital. Because of the urinary tract infection the infectious diseases consultation was requested. The patient's antibiotic therapy was transitioned to Zosyn and she is tolerating that well. She's feeling better. She ate some dinner and is eaten her snack this evening. She denies further studying fevers or chills. She does have the gastroparesis is doing better with the intravenous Zofran and Tigan that she cannot get at home. Review of Systems HEENT: Severe headaches are improved. Has no visual changes. Denies sinus or mouth discomforts. Denies neck stiffness or pain. Denies significant oral cavity pain. Denies difficulty on swallowing. Lungs: Denies significant shortness of breath, cough, sputum production, or hemoptysis. Cardiovascular: Denies significant shortness of breath, chest pain, chest wall pain, orthopnea, dyspnea on exertion, syncope Gastrointestinal: The nausea emesis and diarrhea have improved. Denies hematemesis, melena, hematochezia. Musculoskeletal: denies significant myalgias or arthralgias. No new joint swelling. Denies new back pain. Skin: Denies new rash or lesions. No new ulcers or wounds are related.. Neuro: Denies any new onset weakness or difficulty with ambulation. Denies falls or seizures. Psychiatric: Chronic anxiety and depression, does have a history of psychiatric hospitalization Endocrine: He has severe chronic fatigue related to her underlying genetic disorder and has weight gain. Past Medical History Past Medical History: Chest Pain / Angina, CVA/TIA, Diabetes Mellitus, Deep Vein Thrombosis (DVT), Neurologic Disorder, Syncope, Thyroid Disorder Additional Past Medical History / Comment(s): Dysautonomia-progressive neurological disorder, lupus/LUPUS ANTICOAGULANTS, 2004 CVA without residual, ana maria's disease, lymphedema Lt arm d/t DVTs , v-tach, pituitary microadenoma. "mitochondrial disease". patent foramen ovale, narcolepsy, gastropareis, IDDM type II, uti's, falls, orthostatic hypotension/syncope, migraines with hemiplegia, pernicious anemia, polycystic ovarian syndrome, neuropathy bilateral legs/fee-mild, uterine ablation August 2015/patient no longer has periods. History of Any Multi-Drug Resistant Organisms: ESBL, MRSA Year Discovered:: 03/09/17,09/13/17 ESBL MDRO Source:: LEFT ARM, URINE ECOLI Past Surgical History: Uterine Ablation Additional Past Surgical History / Comment(s): colonscopy/egd, angie, stress test. Past Anesthesia/Blood Transfusion Reactions: No Reported Reaction Additional Past Anesthesia/Blood Transfusion Reaction / Comm: patient states " It takes a lot of anesthesia for my body to react". Pt has received blood in past without reaction. Past Psychological History: Bipolar, Depression Additional Psychological History / Comment(s): Pt resides with her mom. She can walk short distances. She uses a wheelchair as well. She has a walker but doesn't use it. She does not drive she gets to appts by bus or cab. She has hx of suicide attempt in 2014 but states that depression is stable at this time. No animal exposures. No tobacco or alcohol use. Single without children. Does not relate to other family members with her genetic disorder Smoking Status: Never smoker Past Alcohol Use History: None Reported Additional Past Alcohol Use History / Comment(s): Patient is a lifelong nonsmoker. She denies any medical marijuana, marijuana, street drug or alcohol use. Past Drug Use History: None Reported - Past Family History Brother(s) Family Medical History: Diabetes Mellitus, Hyperlipidemia, Hypertension Additional Family Medical History / Comment(s): Patient states she has 1 brother with no major medical problems. Father Family Medical History: Hyperlipidemia, Hypertension Additional Family Medical History / Comment(s): DAD IS 70 YEARS OLD. Patient states she does not have any contact with her father and does not know his medical history. Mother Family Medical History: Chest Pain / Angina, CVA/TIA, Hyperlipidemia, Hypertension Additional Family Medical History / Comment(s): AGE 62 HAS LUPUS, blood pressure swings high to low Medications and Allergies Home Medications and Allergies Comment(s): Current Medications Cyanocobalamin (Vitamin B-12) 2,000 mcg PO HS [facility] Last Admin: 02/02/18 20:32 Dose: 2,000 mcg Diphenoxylate HCl/Atropine (Lomotil) 1 each PO Q6HR PRN PRN Reason: Diarrhea Last Admin: 02/02/18 13:44 Dose: 1 each Famotidine (Pepcid) 20 mg PO BID [facility] Last Admin: 02/02/18 20:32 Dose: 20 mg Ferrous Sulfate (Feosol) 325 mg PO BID [facility] Last Admin: 02/02/18 20:32 Dose: 325 mg Sodium Chloride (Saline 0.9%) 1,000 mls @ 100 mls/hr IV .Q10H [facility] Last Admin: 02/02/18 20:18 Dose: 100 mls/hr Piperacillin/Tazobactam/ (Dextrose 3.375 gm/ IV Solution) 50 mls @ 12.5 mls/hr IVPB Q8H [facility] Last Admin: 02/02/18 20:18 Dose: 12.5 mls/hr Insulin Aspart (Novolog) 0 unit SQ [facility] PRN Reason: Protocol Last Admin: 02/02/18 20:36 Dose: Not Given Insulin Detemir (Levemir) 30 unit SQ [facility] Last Admin: 02/02/18 20:36 Dose: Not Given Levothyroxine Sodium (Synthroid) 250 mcg PO DAILY@0630 [facility] Last Admin: 02/02/18 06:23 Dose: 250 mcg Metoclopramide HCl (Reglan) 10 mg IVP ACHS [facility] Last Admin: 02/02/18 20:33 Dose: 10 mg Metoprolol Succinate (Toprol Xl) 100 mg PO DAILY [facility] Last Admin: 02/02/18 08:42 Dose: 100 mg Morphine Sulfate (Morphine Oral Sary 2mg/Ml) 6 mg PO Q3H PRN PRN Reason: severe pain Last Admin: 02/02/18 22:03 Dose: 6 mg Naloxone HCl (Narcan) 0.2 mg IV Q2M PRN PRN Reason: Opioid Reversal Ondansetron HCl (Zofran) 4 mg IVP Q8HR PRN PRN Reason: Nausea And Vomiting Last Admin: 02/02/18 22:02 Dose: 4 mg Pantoprazole Sodium (Protonix) 40 mg IVP DAILY [facility] Last Admin: 02/02/18 13:50 Dose: 40 mg Rivaroxaban (Xarelto) 20 mg PO HS [facility] Last Admin: 02/02/18 20:32 Dose: 20 mg Tizanidine HCl (Zanaflex) 8 mg PO HS [facility] Last Admin: 02/02/18 20:32 Dose: 8 mg Topiramate (Topamax) 75 mg PO BID [facility] Last Admin: 02/02/18 20:33 Dose: 75 mg Trimethobenzamide HCl (Tigan) 300 mg PO TID PRN PRN Reason: Nausea Last Admin: 02/02/18 18:16 Dose: 300 mg Home Medications Medication Instructions Recorded Confirmed Type Cyanocobalamin [Vitamin B-12] 2,000 mcg PO HS 01/25/16 02/01/18 History Ferrous Sulfate [Iron (65 MG 325 mg PO BID 07/14/16 02/01/18 History Elemental)] Rivaroxaban [Xarelto] 20 mg PO HS 03/09/17 02/01/18 History tiZANidine [Zanaflex] 8 mg PO HS 03/09/17 02/01/18 History Levothyroxine Sodium [Synthroid] 50 mcg PO DAILY 07/29/17 02/01/18 History Levothyroxine Sodium [Synthroid] 200 mcg PO DAILY 07/29/17 02/01/18 History Metoclopramide [Reglan] 10 mg PO ACHS 07/29/17 02/01/18 History Insulin Glargine [Lantus] 30 unit SQ HS vial 08/05/17 02/01/18 Rx Insulin Aspart [NovoLOG Flexpen] See Protocol SQ AC-TID 09/13/17 02/01/18 History Topiramate [Topamax] 75 mg PO BID 09/13/17 02/01/18 History Ondansetron [Zofran] 8 mg PO Q6HR PRN 09/25/17 02/01/18 History Trimethobenzamide HCl [Tigan] 300 mg PO TID PRN 09/25/17 02/01/18 History Metoprolol Succinate (ER) [Toprol 100 mg PO DAILY 10/24/17 02/01/18 History XL] Ranitidine HCl 150 mg PO BID 12/17/17 02/01/18 History HYDROmorphone [Dilaudid] 2 mg PO Q4HR PRN #60 tab 01/05/18 02/01/18 Rx cefTRIAXone [Rocephin] 1,000 mg IVP Q24H #21 syringe 01/24/18 02/01/18 Rx Ertapenem [INVanz] 1 gm IVPB Q24H #7 bag 01/31/18 02/01/18 Rx Allergies Allergy/AdvReac Type Severity Reaction Status Date / Time barium sulfate Allergy Anaphylaxis Verified 02/01/18 17:08 diphtheria, pertussis, Allergy Unknown Verified 02/01/18 17:08 tetanus vacc doxepin [Doxepin] Allergy Anaphylaxis Verified 02/01/18 17:08 influenza virus vaccine, Allergy Rash/Hives Verified 02/01/18 17:08 specific [Influenza Virus Vacc,Specific] promethazine HCl Allergy Anaphylaxis Verified 02/01/18 17:08 [From Phenergan] doxycycline AdvReac Nausea & Verified 02/01/18 17:08 Vomiting & Diarrhea Pertussis Vaccines AdvReac fever/seizu Verified 02/01/18 17:08 re pseudoephedrine AdvReac Chest Pain Verified 02/01/18 17:08 pseudoephedrine HCl AdvReac Chest Pain Verified 02/01/18 17:08 [From Sudafed] sulfamethoxazole AdvReac Nausea & Verified 02/01/18 17:08 [From Bactrim] Vomiting trimethoprim [From Bactrim] AdvReac Nausea & Verified 02/01/18 17:08 Vomiting Physical Exam Vitals: Vital Signs Temp Pulse Resp BP Pulse Ox 02/02/18 22:52 98.1 F 70 18 100/58 97 02/02/18 15:00 98.9 F 72 18 110/68 97 02/02/18 13:49 83 110/73 02/02/18 06:31 97.3 F L 75 18 90/60 97 02/02/18 00:00 108 H Intake and Output 02/02/18 02/02/18 02/03/18 14:59 22:59 06:59 Intake Total 480 Balance 480 Intake: Oral 480 Other: # Voids 3 1 # Bowel Movements 1 37-year-old female with 26 ER visits in the last 3 years HEENT: Anicteric conjunctiva are pink and moist nasal mucosa grossly intact without significant lesions, there is no thrush. Neck: The neck is supple, no significant stiffness is noted without significant lymphadenopathy or thyromegaly. Lungs: Good bilateral air entry without significant crackles or wheezing. There is no significant bronchial sounds. There is no egophony or dullness. Heart: Regular rate and rhythm with an audible S1-S2, no S3 no S4. There is no significant murmur click or rub, PMI was nondisplaced. Abdomen: Positive bowel sounds soft and minimal generalized tenderness without palpable masses or organomegaly. There was no guarding or rebound. Extremities: The upper extremities have excellent pulses they are symmetric, no significant petechiae or telangiectasia. No splinter hemorrhages were noted. The lower extremities are free from significant edema. The peripheral pulses were 2+ and symmetric. Neuro: Awake alert oriented to person place and time and time. No acute gross focal sensory motor deficit changes. But does have chronic lower extremity weakness Results CBC & Chem 7: 02/01/18 17:46 02/01/18 17:46 Labs: Abnormal Lab Results - Last 24 Hours (Table) 02/01/18 02/02/18 02/02/18 Range/Units 17:46 11:33 20:34 POC Glucose (mg/dL) 123 H 122 H (75-99) mg/dL Hemoglobin A1c 6.4 H (4.0-6.0) % Microbiology - Last 24 Hours (Table) 02/01/18 17:46 Blood Culture - Preliminary Blood No Growth after 24 hours 02/01/18 17:46 Urine Culture - Preliminary Urine,Voided Laboratory Results WBC 13.3 k/uL (3.8-10.6) H 02/01/18 17:46 RBC 4.89 m/uL (3.80-5.40) 02/01/18 17:46 Hgb 13.5 gm/dL (11.4-16.0) 02/01/18 17:46 Hct 41.9 % (34.0-46.0) 02/01/18 17:46 MCV 85.6 fL (80.0-100.0) 02/01/18 17:46 MCH 27.7 pg (25.0-35.0) 02/01/18 17:46 MCHC 32.4 g/dL (31.0-37.0) 02/01/18 17:46 RDW 14.0 % (11.5-15.5) 02/01/18 17:46 Plt Count 421 k/uL (150-450) 02/01/18 17:46 Neutrophils % 78 % 02/01/18 17:46 Lymphocytes % 14 % 02/01/18 17:46 Monocytes % 6 % 02/01/18 17:46 Eosinophils % 1 % 02/01/18 17:46 Basophils % 0 % 02/01/18 17:46 Neutrophils # 10.4 k/uL (1.3-7.7) H 02/01/18 17:46 Lymphocytes # 1.9 k/uL (1.0-4.8) 02/01/18 17:46 Monocytes # 0.8 k/uL (0-1.0) 02/01/18 17:46 Eosinophils # 0.1 k/uL (0-0.7) 02/01/18 17:46 Basophils # 0.0 k/uL (0-0.2) 02/01/18 17:46 Sodium 145 mmol/L (137-145) 02/01/18 17:46 Potassium 4.0 mmol/L (3.5-5.1) 02/01/18 17:46 Chloride 109 mmol/L (98-107) H 02/01/18 17:46 Carbon Dioxide 16 mmol/L (22-30) L 02/01/18 17:46 Anion Gap 20 mmol/L 02/01/18 17:46 BUN 12 mg/dL (7-17) 02/01/18 17:46 Creatinine 0.60 mg/dL (0.52-1.04) 02/01/18 17:46 Est GFR (CKD-EPI)AfAm >90 (>60 ml/min/1.73 sqM) 02/01/18 17:46 Est GFR (CKD-EPI)NonAf >90 (>60 ml/min/1.73 sqM) 02/01/18 17:46 Glucose 139 mg/dL (74-99) H 02/01/18 17:46 POC Glucose (mg/dL) 122 mg/dL (75-99) H 02/02/18 20:34 POC Glu Employment Advisor Chanelle Ewing 02/02/18 20:[address] Glu mg/dL 137 02/01/18 17:46 Hemoglobin A1c 6.4 % (4.0-6.0) H 02/01/18 17:46 Lactic Ac Sepsis Rflx Y 02/01/18 18:34 Plasma Lactic Acid Joce 1.2 mmol/L (0.7-2.0) 02/01/18 22:00 Calcium 10.4 mg/dL (8.4-10.2) H 02/01/18 17:46 Total Bilirubin 0.5 mg/dL (0.2-1.3) 02/01/18 17:46 AST 32 U/L (14-36) 02/01/18 17:46 ALT 33 U/L (9-52) 02/01/18 17:46 Alkaline Phosphatase 104 U/L (38-126) 02/01/18 17:46 Total Protein 8.1 g/dL (6.3-8.2) 02/01/18 17:46 Albumin 4.8 g/dL (3.5-5.0) 02/01/18 17:46 HCG, Quant <2.4 mIU/mL 02/01/18 17:46 Urine Color Yellow 02/01/18 17:46 Urine Appearance Cloudy (Clear) H 02/01/18 17:46 Urine pH 5.5 (5.0-8.0) 02/01/18 17:46 Ur Specific [place] 1.024 (1.001-1.035) 02/01/18 17:46 Urine Protein 1+ (Negative) H 02/01/18 17:46 Urine Glucose (UA) Negative (Negative) 02/01/18 17:46 Urine Ketones 2+ (Negative) H 02/01/18 17:46 Urine Blood Trace (Negative) H 02/01/18 17:46 Urine Nitrite Negative (Negative) 02/01/18 17:46 Urine Bilirubin Negative (Negative) 02/01/18 17:46 Urine Urobilinogen <2.0 mg/dL (<2.0) 02/01/18 17:46 Ur Leukocyte Esterase Trace (Negative) H 02/01/18 17:46 Urine RBC 1 /hpf (0-5) 02/01/18 17:46 Urine WBC 5 /hpf (0-5) 02/01/18 17:46 Ur Squamous Epith Cells 4 /hpf (0-4) 02/01/18 17:46 Urine Bacteria Rare /hpf (None) H 02/01/18 17:46 Hyaline Casts 16 /lpf (0-2) H 02/01/18 17:46 Urine Mucus Occasional /hpf (None) H 02/01/18 17:46 C. difficile (EIA) Intrp Negative (Negative) 02/02/18 08:36 Microbiology 02/01/18 17:46 Blood Blood Culture - Preliminary No Growth after 24 hours 02/01/18 17:46 Urine,Voided Urine Culture - Preliminary Assessment and Plan (1) Urinary tract infection Narrative/Plan: 37-year-old female who is a very complex past medical history regarding her mitochondrial disease and hemiparesis was found evidence of a group B streptococcal urinary tract infection. Is being treated with Rocephin and was originally having some improvement. She however then developed worsening of her symptoms with increasing nausea and emesis. She became very dehydrated and presented to the emergency center with is evidence of significant dehydration and elevated lactic acid. However the lactic acid could be due to her underlying mitochondrial disease. She did respond well to fluid resuscitation and was admitted to hospital. At this time she is feeling slightly better. She ate some dinner is eating her nighttime snack without nausea or emesis. She relates that she's feeling better because of the intravenous Zofran and Tigan that she can receive at the hospital. Pain control is moderate with the current oral morphine. She is denying other new acute difficulties at this time. The antibiotic therapy was transitioned to Zosyn and she is tolerating this well. Follow up cultures are pending and negative so far. She does have a mild leukocytosis compared to her last stay and will be monitored. When she has had further stability Ovila complete her course of Invanz at home as early directed. Unless there are new pathogens that are found during this stay. Would like to ask if she has the possibility of taking erythromycin for her severe gastroparesis, unclear if is contraindicated with mitochondrial disease the patient thought it may have just been very expensive. Since erythromycin tends to be a very inexpensive generic would need further investigation before attempting its use. 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
[2018-02-03] MEDS: PIPERACILLIN-TAZOBACTAM 3.375 GM in DEXTROSE/WATER 1 50ML.BAG IVPB SCH ×3 (04:15→21:16)
[2018-02-03] MEDS: LEVOTHYROXINE 125 MCG TAB PO SCH (06:21)
[2018-02-03] MEDS: MORPHINE ORAL SOLN 10 MG/5 ML CUP PO PRN ×5 (06:24→22:32)
[2018-02-03] MEDS: ONDANSETRON 4 MG/2 ML VIAL IVP PRN ×3 (06:24→21:21)
[2018-02-03 07:21] LABS: Glucose,Whole Blood 138 mg/dL (75-99)
[2018-02-03] MEDS: TOPIRAMATE 25 MG TAB PO SCH ×2 (08:20→21:11)
[2018-02-03] MEDS: PANTOPRAZOLE 40 MG/10 ML VIAL IVP SCH (08:20)
[2018-02-03] MEDS: METOCLOPRAMIDE 5 MG/ML 2 ML VIAL IVP SCH ×4 (08:20→21:20)
[2018-02-03] MEDS: FAMOTIDINE 20 MG TAB PO SCH (08:21)
[2018-02-03] MEDS: INSULIN ASPART 100 UNIT/ML 1 ML 10 ML VIAL SQ SCH ×4 (08:21→21:05)
[2018-02-03] MEDS: FERROUS SULFATE 325 MG TAB PO SCH ×2 (08:21→21:10)
[2018-02-03] MEDS: METOPROLOL SUCCINATE (ER) 100 MG TAB.ER.24H PO SCH (08:21)
[2018-02-03 08:46] LABS: Basophils % (A) 0 %; Eosinophils # (A) 0.2 k/uL (0-0.7); Eosinophils % (A) 3 %; HCT 33.6 % (34.0-46.0); Lymphocytes # (A) 1.5 k/uL (1.0-4.8); Lymphocytes % (A) 24 %; MCHC 32.8 g/dL (31.0-37.0); MCV 85.2 fL (80.0-100.0); Mean Platelet Volume 7.8; Monocytes # (A) 0.5 k/uL (0-1.0); Monocytes % (A) 7 %; Neutrophils % (A) 63 %; Platelet Count 271 k/uL (150-450); RBC 3.94 m/uL (3.80-5.40); RDW 13.9 % (11.5-15.5); WBC 6.3 k/uL (3.8-10.6)
[2018-02-03 09:10] LABS: Albumin 3.5 g/dL (3.5-5.0); Anion Gap 10 mmol/L; Calcium 9.4 mg/dL (8.4-10.2); Carbon Dioxide 17 mmol/L (22-30); Chloride 116 mmol/L (98-107); Glucose 127 mg/dL (74-99); Sodium 143 mmol/L (137-145); Total Bilirubin 0.4 mg/dL (0.2-1.3); Total Protein 6.3 g/dL (6.3-8.2)
[2018-02-03 09:14] LABS: Potassium 5.1 mmol/L (3.5-5.1)
[2018-02-03 09:15] LABS: ALT 39 U/L (9-52); AST 49 U/L (14-36); Alkaline Phosphatase 65 U/L (38-126); Blood Urea Nitrogen 7 mg/dL (7-17)
[2018-02-03] MEDS: TRIMETHOBENZAMIDE 300 MG CAP PO PRN ×2 (09:42→18:54)
--- NOTE | 2018-02-03 11:39 | P.PN ---
Subjective Progress Note Date: 02/03/18 This is a 37-year-old female with a known past medical history of lupus anticoagulant disorder on anticoagulation with Xarelto, mitochondrial DNA depletion syndrome, insulin-dependent diabetes mellitus, headaches and recurrent UTI. Patient was discharged from the hospital on 01/24/2018 for UTI and possible acute right-sided pyelonephritis with sepsis. She was seen by infectious disease and they placed her on Rocephin 1 g IV daily via PICC line for 21 days. However, patient continued to have urinary symptoms. Plus she started to become febrile and having nausea and vomiting. She had 3 days or she could not keep any liquids or food down. She did go to see Dr. Joel in the office. He contacted Dr. Hansen. I Dr. Hansen had ordered Invanz to be started outpatient via her PICC line. However the Invanz was unable to get started. And patient's symptoms continued to worsen therefore she came into the emergency room. She was found to be septic with evidence of UTI. Temporal 100.2 heart rate 129 white count 13.3 lactic acid 3. Also patient had been complaining of multiple episodes of diarrhea. Stool for C. diff is negative. Patient denies any abdominal pain. Denies any chest pain or shortness of breath. She doesn't having some burning with urination with frequency and urgency. And her urine has been orange. 02/03/2018 patient still having some nausea. No vomiting. Stool for C. diff was negative. Stools are becoming more formed and less frequent. She did not take any of the Lomotil yet. But is there if she needs. Urine culture growing gram-negative bacilli. Blood cultures are negative. She's been evaluated by infectious disease. They had recommended possibly the erythromycin for gastroparesis. However there erythromycin was found to be mitochondrial toxic therefore patient cannot use this medication due to her mitochondrial DNA depletion syndrome Objective - Vital Signs Vital signs: Vital Signs Temp 97.3 F L 02/03/18 05:51 Pulse 66 02/03/18 05:51 Resp 18 02/03/18 05:51 BP 104/60 02/03/18 05:51 Pulse Ox 98 02/03/18 05:51 Intake & Output 02/02/18 02/03/18 02/03/18 18:59 06:59 18:59 Intake Total 480 Balance 480 Intake: Oral 480 Other: Voiding Method Toilet Toilet # Voids 3 2 # Bowel Movements 1 - Exam Head normocephalic Neck supple Lungs clear to auscultation bilaterally no wheezing or crackles Heart regular rate and rhythm S1-S2, no rub or gallop Abdomen is soft nontender nondistended positive bowel sounds no hepatosplenomegaly. CVA tenderness bilaterally Extremities no edema Neuro alert and orientated to 3 - Labs CBC & Chem 7: 02/03/18 08:06 02/03/18 08:06 Labs: Abnormal Lab Results - Last 24 Hours (Table) 02/01/18 02/02/18 02/02/18 Range/Units 17:46 11:33 20:34 Hgb (11.4-16.0) gm/dL Hct (34.0-46.0) % Chloride (98-107) mmol/L Carbon Dioxide (22-30) mmol/L Glucose (74-99) mg/dL POC Glucose (mg/dL) 123 H 122 H (75-99) mg/dL Hemoglobin A1c 6.4 H (4.0-6.0) % AST (14-36) U/L 02/03/18 02/03/18 02/03/18 Range/Units 07:19 08:06 08:06 Hgb 11.0 L (11.4-16.0) gm/dL Hct 33.6 L (34.0-46.0) % Chloride 116 H (98-107) mmol/L Carbon Dioxide 17 L (22-30) mmol/L Glucose 127 H (74-99) mg/dL POC Glucose (mg/dL) 138 H (75-99) mg/dL Hemoglobin A1c (4.0-6.0) % AST 49 H (14-36) U/L Microbiology - Last 24 Hours (Table) 02/01/18 17:46 Urine Culture - Preliminary Urine,Voided Gram Neg Bacilli 02/01/18 17:46 Blood Culture - Preliminary Blood No Growth after 24 hours Assessment and Plan Assessment: 1. UTI with possible pyelonephritis and sepsis present on admission: Failing outpatient antibiotics. Urine culture growing gram-negative bacilli. Patient started on IV Zosyn. Infectious disease consulted. Blood culture negative so far. Continue with IV fluids at 100 mL an hour 2. 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 Nausea and vomiting possibly related to the antibiotic and infection. Continue with the Zofran Tigan, Reglan, and Protonix 5. Diarrhea possibly related to the antibiotic. C. diff negative. Lomotil as needed 6. Chronic Headaches: Continue with current pain medication 7. History of CVA GI prophylaxis Protonix and DVT prophylaxis Nubia I performed an examination of the patient and discussed their management with the physician Waxer Operator. I have reviewed the Physician Waxer Operator's notes and agree with the documented findings and plan of care
[2018-02-03] MEDS: SODIUM CHLORIDE 0.9% 1,000 ML IV SCH ×2 (11:49→21:20)
[2018-02-03 11:57] LABS: Glucose,Whole Blood 141 mg/dL (75-99)
[2018-02-03 17:24] LABS: Glucose,Whole Blood 104 mg/dL (75-99)
[2018-02-03 21:09] LABS: Glucose,Whole Blood 130 mg/dL (75-99)
[2018-02-03] MEDS: CYANOCOBALAMIN 500 MCG TAB PO SCH (21:10)
[2018-02-03] MEDS: tiZANidine 4 MG TAB PO SCH (21:11)
[2018-02-03] MEDS: RIVAROXABAN 20 MG TAB PO SCH (21:11)
[2018-02-03] MEDS: INSULIN DETEMIR 100 UNIT/ML 10 ML VIAL SQ SCH (21:18)
[2018-02-04] MEDS: PIPERACILLIN-TAZOBACTAM 3.375 GM in DEXTROSE/WATER 1 50ML.BAG IVPB SCH ×2 (04:31→12:08)
[2018-02-04] MEDS: MORPHINE ORAL SOLN 10 MG/5 ML CUP PO PRN ×4 (04:58→21:26)
[2018-02-04] MEDS: LEVOTHYROXINE 125 MCG TAB PO SCH (06:27)
[2018-02-04 07:30] LABS: Glucose,Whole Blood 103 mg/dL (75-99)
[2018-02-04] MEDS: INSULIN ASPART 100 UNIT/ML 1 ML 10 ML VIAL SQ SCH ×4 (07:33→21:13)
[2018-02-04] MEDS: PANTOPRAZOLE 40 MG TABLET PO SCH (08:03)
[2018-02-04] MEDS: TOPIRAMATE 25 MG TAB PO SCH ×2 (08:03→21:22)
[2018-02-04] MEDS: METOCLOPRAMIDE 5 MG/ML 2 ML VIAL IVP SCH ×4 (08:03→21:24)
[2018-02-04] MEDS: METOPROLOL SUCCINATE (ER) 100 MG TAB.ER.24H PO SCH (08:03)
[2018-02-04] MEDS: FERROUS SULFATE 325 MG TAB PO SCH ×2 (08:04→21:21)
[2018-02-04] MEDS: SODIUM CHLORIDE 0.9% 1,000 ML IV SCH (08:04)
[2018-02-04 08:38] LABS: Basophils % (A) 1 %; Eosinophils # (A) 0.2 k/uL (0-0.7); Eosinophils % (A) 3 %; HGB 12.2 gm/dL (11.4-16.0); Lymphocytes # (A) 2.1 k/uL (1.0-4.8); Lymphocytes % (A) 29 %; MCH 28.7 pg (25.0-35.0); MCHC 33.7 g/dL (31.0-37.0); Mean Platelet Volume 7.2; Monocytes # (A) 0.5 k/uL (0-1.0); Monocytes % (A) 6 %; Neutrophils # (A) 4.3 k/uL (1.3-7.7); Neutrophils % (A) 59 %; Platelet Count 328 k/uL (150-450); RBC 4.24 m/uL (3.80-5.40); RDW 13.8 % (11.5-15.5); WBC 7.3 k/uL (3.8-10.6)
--- NOTE | 2018-02-04 08:44 | US ---
EXAMINATION TYPE: US abdomen complete DATE OF EXAM: 02/03/2018 COMPARISON: CT 01/21/2018, US 10/24/2017 CLINICAL HISTORY: abdominal pain RUQ. Nausea/vomiting EXAM MEASUREMENTS: Liver Length: 21.2 cm Gallbladder Wall: 0.2 cm CBD: 0.4 cm Spleen: 11.0 cm Right Kidney: 11.0 x 4.5 x 4.4 cm Left Kidney: 11.8 x 5.5 x 4.7 cm Pancreas: Tail obscured by overlying bowel gas, visualized portions wnl Liver: Enlarged. Heterogeneous, coarse echotexture. Gallbladder: wnl Evidence for sonographic Harris's sign: Yes CBD: wnl as visualized, distal portion is obscured by bowel gas Spleen: wnl Right Kidney: No hydronephrosis or masses seen Left Kidney: No hydronephrosis or masses seen Upper IVC: wnl Abd Aorta: wnl Limited views of the pancreas are unremarkable. The liver is enlarged measuring 21 cm. The liver is heterogenous. It may be fatty infiltrated. The gallbladder is normal without evidence of cholelithiasis. The gallbladder wall measures 1.9 mm. T he distal common hepatic duct measures 4.4 mm. Both kidneys appear normal. The spleen is normal in size. Limited views of the aorta and IVC are unremarkable. IMPRESSION: Hepatomegaly.
[2018-02-04 09:04] LABS: ALT 33 U/L (9-52); AST 31 U/L (14-36); Albumin 3.6 g/dL (3.5-5.0); Alkaline Phosphatase 65 U/L (38-126); Amylase 40 U/L (30-110); Anion Gap 11 mmol/L; Blood Urea Nitrogen 6 mg/dL (7-17); Calcium 9.7 mg/dL (8.4-10.2); Carbon Dioxide 17 mmol/L (22-30); Chloride 116 mmol/L (98-107); Glucose 108 mg/dL (74-99); Lipase 76 U/L (23-300); Potassium 4.6 mmol/L (3.5-5.1); Sodium 144 mmol/L (137-145); Total Bilirubin 0.3 mg/dL (0.2-1.3); Total Protein 6.3 g/dL (6.3-8.2)
[2018-02-04 12:16] LABS: Glucose,Whole Blood 138 mg/dL (75-99)
[2018-02-04] MEDS: ONDANSETRON 4 MG/2 ML VIAL IVP PRN (13:36)
[2018-02-04] MEDS: ERTAPENEM 1 GM in SODIUM CHLORIDE 0.9% 50 ML IVPB SCH (13:59)
--- NOTE | 2018-02-04 15:27 | P.PN ---
Subjective No events overnight Objective - Vital Signs Vital signs: Vital Signs Temp 97.0 F L 02/04/18 06:38 Pulse 68 02/04/18 06:38 Resp 16 02/04/18 06:38 BP 111/58 02/04/18 06:38 Pulse Ox 99 02/04/18 06:38 Intake & Output 02/03/18 02/04/18 02/04/18 18:59 06:59 18:59 Intake Total 200 Balance 200 Intake: Oral 200 Other: Voiding Method Toilet Toilet Toilet # Voids 2 2 2 - Exam General: The patient is awake and alert, in no distress Eye: there is normal conjunctiva bilaterally. Neck: The neck is supple, there is no JVD. Cardiovascular: Normal S1-S2, no S3-S4, no murmurs. Respiratory: Lungs clear to auscultation bilaterally Gastrointestinal: Abdomen is soft, nontender Musculoskeletal: There is no pedal edema. Neurological:. Speech is normal. Skin: Skin is warm and dry - Labs CBC & Chem 7: 02/04/18 08:16 02/04/18 08:16 Labs: Abnormal Lab Results - Last 24 Hours (Table) 02/03/18 02/03/18 02/04/18 Range/Units 17:18 20:45 07:12 Chloride (98-107) mmol/L Carbon Dioxide (22-30) mmol/L BUN (7-17) mg/dL Glucose (74-99) mg/dL POC Glucose (mg/dL) 104 H 130 H 103 H (75-99) mg/dL 02/04/18 02/04/18 Range/Units 08:16 11:56 Chloride 116 H (98-107) mmol/L Carbon Dioxide 17 L (22-30) mmol/L BUN 6 L (7-17) mg/dL Glucose 108 H (74-99) mg/dL POC Glucose (mg/dL) 138 H (75-99) mg/dL Microbiology - Last 24 Hours (Table) 02/01/18 17:46 Urine Culture - Final Urine,Voided Escherichia coli 02/01/18 17:46 Blood Culture - Preliminary Blood No Growth after 48 hours Assessment and Plan Assessment: 1. ESBL UTI: Antibiotic will be switched to IV Invanz 2. 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 Nausea and vomiting: Resolved. possibly related to the antibiotic and infection. Continue with the Zofran Tigan, Reglan, and Protonix 5. Diarrhea possibly related to the antibiotic. C. diff negative. Lomotil as needed 6. Chronic Headaches: Continue with current pain medication 7. History of CVA
[2018-02-04 17:35] LABS: Glucose,Whole Blood 135 mg/dL (75-99)
[2018-02-04] MEDS: CYANOCOBALAMIN 500 MCG TAB PO SCH (21:21)
[2018-02-04] MEDS: tiZANidine 4 MG TAB PO SCH (21:22)
[2018-02-04] MEDS: RIVAROXABAN 20 MG TAB PO SCH (21:22)
[2018-02-04] MEDS: INSULIN DETEMIR 100 UNIT/ML 10 ML VIAL SQ SCH (21:23)
[2018-02-04 21:27] LABS: Glucose,Whole Blood 116 mg/dL (75-99)
--- NOTE | 2018-02-05 00:14 | PN ---
PROGRESS NOTE DATE OF SERVICE: 02/04/2018. REASON FOR FOLLOWUP: ESBL E coli urinary tract infection and antibiotic recommendation. HISTORY OF PRESENT ILLNESS: The patient is a 37-year-old female who did have a recent recurrent urinary tract infection. She was recently admitted to this facility beginning of January with urine culture at that time did grow group B strep. The patient apparently did get and was advised Rocephin in outpatient setting. However, the patient said she has had persistent symptoms. Antibiotic was switched over to Invanz 1 g daily. With the patient's symptoms continuing to get worse, the patient's he was having extensive nausea and vomiting and was unable to keep anything down. She was having urinary frequency as well as burning and some pain in the right flank area, more of a dull aching pain, 3 to 4/10, and no radiation. The patient called PCP and was advised to come to the hospital because of persistent vomiting. The patient subsequently has been evaluated by the ER physician and she has been diagnosed with urinary tract infection. She did have a fever of 100.2 on admission, white count was at 13.3. Urine was positive. was negative. She has been treated with Zosyn, however, the urine culture now showing ESBL E coli. I was asked to see the patient today for further recommendation and adjustment of antibiotic therapy. REVIEW OF SYSTEMS: Positive for nausea, vomiting, urinary symptoms, voiding frequency and flank pain. Rest of systems have been negative. Past medical and surgical history reviewed and unchanged. MEDICATIONS: Reviewed. EXAMINATION: Blood pressure is 111/58 with a pulse of 68, temperature 97, she is 99% on room air. GENERAL DESCRIPTION: A middle-aged female up in the bed in no distress. No tachypnea or accessory muscle of respiration use. HEENT: Shows no pallor or scleral icterus. Oral mucosa is moist. No erythema or thrush. NECK: Trachea central. No thyromegaly. LUNG: Unlabored breathing. Clear to auscultation anteriorly. No wheeze or crackle. HEART: S1, S2. Regular rate and rhythm. ABDOMEN: Soft no tenderness or organomegaly. EXTREMITIES: No edema of the feet. SKIN: No rashes or mass palpable. NEUROLOGIC: The patient is awake, alert, oriented x3. Mood and affect normal. LABS: Hemoglobin is 12.2, white count 7.3. Admission white count was 13.3 with a BUN of 6, creatinine 0.5, white count has been normal. Liver enzymes are normal. Urine showing an ESBL E coli. The patient did have an abdominal ultrasound, reported to have some hepatomegaly, but no other abnormality. Both kidneys appeared to be normal. DIAGNOSTIC IMPRESSION AND PLAN: Patient with recurrent urinary tract infection with recent failing outpatient Rocephin therapy. Previous culture positive for group B strep. Blood culture done during this admission showing an ESBL E coli, more likely the infected pathogen. The patient did have persistent and has been on IV Rocephin in outpatient setting. She did have extensive workup with no evidence of any structural abnormality in the kidney or bladder area. PLAN: 1. Discontinue the Zosyn. 2. Will start the patient on Invanz 1 g IV piggyback daily. 3. If the patient continues to improve, should be able to finish therapy with IV Invanz. The patient already has that at home. Plan of care discussed in detail with the admitting physician. CARLIN / MARLONN: [id number] /
[2018-02-05] MEDS: LEVOTHYROXINE 125 MCG TAB PO SCH (06:21)
[2018-02-05] MEDS: MORPHINE ORAL SOLN 10 MG/5 ML CUP PO PRN ×5 (06:22→20:38)
[2018-02-05 07:24] LABS: Glucose,Whole Blood 119 mg/dL (75-99)
[2018-02-05] MEDS: INSULIN ASPART 100 UNIT/ML 1 ML 10 ML VIAL SQ SCH ×4 (07:45→21:21)
[2018-02-05] MEDS: ERTAPENEM 1 GM in SODIUM CHLORIDE 0.9% 50 ML IVPB SCH (07:56)
[2018-02-05] MEDS: METOPROLOL SUCCINATE (ER) 100 MG TAB.ER.24H PO SCH (07:56)
[2018-02-05] MEDS: METOCLOPRAMIDE 5 MG/ML 2 ML VIAL IVP SCH ×4 (07:56→20:38)
[2018-02-05] MEDS: TOPIRAMATE 25 MG TAB PO SCH ×2 (07:57→20:37)
[2018-02-05] MEDS: FERROUS SULFATE 325 MG TAB PO SCH ×2 (07:57→20:38)
[2018-02-05] MEDS: PANTOPRAZOLE 40 MG TABLET PO SCH (07:57)
[2018-02-05 09:00] LABS: Basophils # (A) 0.1 k/uL (0-0.2); Basophils % (A) 1 %; Eosinophils # (A) 0.2 k/uL (0-0.7); Eosinophils % (A) 3 %; HCT 35.5 % (34.0-46.0); HGB 11.8 gm/dL (11.4-16.0); Lymphocytes # (A) 1.5 k/uL (1.0-4.8); Lymphocytes % (A) 20 %; MCH 28.6 pg (25.0-35.0); MCHC 33.2 g/dL (31.0-37.0); MCV 86.1 fL (80.0-100.0); Mean Platelet Volume 6.8; Monocytes # (A) 0.5 k/uL (0-1.0); Monocytes % (A) 6 %; Neutrophils # (A) 5.1 k/uL (1.3-7.7); Neutrophils % (A) 68 %; Platelet Count 301 k/uL (150-450); RBC 4.13 m/uL (3.80-5.40); RDW 13.7 % (11.5-15.5); WBC 7.5 k/uL (3.8-10.6)
[2018-02-05 09:06] LABS: ALT 33 U/L (9-52); AST 22 U/L (14-36); Albumin 3.7 g/dL (3.5-5.0); Alkaline Phosphatase 70 U/L (38-126); Anion Gap 14 mmol/L; Blood Urea Nitrogen 9 mg/dL (7-17); Calcium 9.7 mg/dL (8.4-10.2); Carbon Dioxide 17 mmol/L (22-30); Chloride 110 mmol/L (98-107); Glucose 173 mg/dL (74-99); Potassium 4.1 mmol/L (3.5-5.1); Sodium 141 mmol/L (137-145); Total Bilirubin 0.2 mg/dL (0.2-1.3); Total Protein 6.3 g/dL (6.3-8.2)
[2018-02-05] MEDS: ONDANSETRON 4 MG/2 ML VIAL IVP PRN (10:07)
[2018-02-05 12:49] LABS: Glucose,Whole Blood 108 mg/dL (75-99)
[2018-02-05] MEDS: TRIMETHOBENZAMIDE 300 MG CAP PO PRN (14:34)
--- NOTE | 2018-02-05 15:23 | P.PN ---
Subjective No events overnight Objective - Vital Signs Vital signs: Vital Signs Temp 97.4 F L 02/05/18 07:00 Pulse 58 L 02/05/18 07:00 Resp 16 02/05/18 07:00 BP 100/58 02/05/18 07:00 Pulse Ox 99 02/05/18 07:00 Intake & Output 02/04/18 02/05/18 02/05/18 18:59 06:59 18:59 Intake Total 200 Balance 200 Intake: Oral 200 Other: Voiding Method Toilet Toilet Toilet # Voids 2 2 - Exam General: The patient is awake and alert, in no distress Eye: there is normal conjunctiva bilaterally. Neck: The neck is supple, there is no JVD. Cardiovascular: Normal S1-S2, no S3-S4, no murmurs. Respiratory: Lungs clear to auscultation bilaterally Gastrointestinal: Abdomen is soft, nontender Musculoskeletal: There is no pedal edema. Neurological:. Speech is normal. Skin: Skin is warm and dry - Labs CBC & Chem 7: 02/05/18 08:31 02/05/18 08:31 Labs: Abnormal Lab Results - Last 24 Hours (Table) 02/04/18 02/04/18 02/05/18 Range/Units 17:09 21:12 07:14 Chloride (98-107) mmol/L Carbon Dioxide (22-30) mmol/L Glucose (74-99) mg/dL POC Glucose (mg/dL) 135 H 116 H 119 H (75-99) mg/dL 02/05/18 02/05/18 Range/Units 08:31 12:26 Chloride 110 H (98-107) mmol/L Carbon Dioxide 17 L (22-30) mmol/L Glucose 173 H (74-99) mg/dL POC Glucose (mg/dL) 108 H (75-99) mg/dL Microbiology - Last 24 Hours (Table) 02/01/18 17:46 Blood Culture - Preliminary Blood No Growth after 72 hours Assessment and Plan Assessment: 1. ESBL UTI: Antibiotic switched to IV Invanz. Patient should be able to finish antibiotic course at home 2. 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 Nausea and vomiting: Resolved. possibly related to the antibiotic and infection. Continue with the Zofran Tigan, Reglan, and Protonix 5. Diarrhea possibly related to the antibiotic. C. diff negative. Lomotil as needed 6. Chronic Headaches: Continue with current pain medication 7. History of CVA
[2018-02-05 17:25] LABS: Glucose,Whole Blood 94 mg/dL (75-99)
[2018-02-05] MEDS: tiZANidine 4 MG TAB PO SCH (20:37)
[2018-02-05] MEDS: CYANOCOBALAMIN 500 MCG TAB PO SCH (20:38)
[2018-02-05] MEDS: RIVAROXABAN 20 MG TAB PO SCH (20:38)
[2018-02-05 20:49] LABS: Glucose,Whole Blood 118 mg/dL (75-99)
[2018-02-05] MEDS: INSULIN DETEMIR 100 UNIT/ML 10 ML VIAL SQ SCH (21:21)
--- NOTE | 2018-02-05 21:39 | PN ---
PROGRESS NOTE DATE OF SERVICE: 02/05/2018. REASON FOR FOLLOWUP: ESBL E. coli urinary tract infection. INTERVAL HISTORY: The patient is afebrile. She is breathing comfortably. Overall nausea and vomiting has improved. She is able to keep fluids down. Still complains of some pain on the right flank area. No diarrhea. Some urine frequency, but no burning. EXAMINATION: Blood pressure 137/85 with a pulse of 73, temperature 98.3. She is 97% on room air. GENERAL DESCRIPTION: A middle-aged female, lying in bed in no distress. RESPIRATORY SYSTEM: Unlabored breathing. Clear to auscultation anteriorly. HEART: S1, S2. Regular rate and rhythm. ABDOMEN: Soft, no tenderness. EXTREMITIES: No edema of feet. LABS: Hemoglobin 11.8, white count 7.5. BUN of 9, creatinine 0.52. DIAGNOSTIC IMPRESSION AND PLAN: Patient with ESBL E. coli urinary tract infection. Currently on Invanz and that should continue. The patient already has 7 doses of Invanz at home and that should be enough to treat her UTI. She has been educated about her recurrent urinary tract infection and how to prevent them in the future. MMODL / IJN: [id number] /
[2018-02-06] MEDS: LEVOTHYROXINE 125 MCG TAB PO SCH (06:47)
[2018-02-06 07:53] LABS: Glucose,Whole Blood 111 mg/dL (75-99)
[2018-02-06] MEDS: INSULIN ASPART 100 UNIT/ML 1 ML 10 ML VIAL SQ SCH ×2 (08:05→11:22)
[2018-02-06] MEDS: ERTAPENEM 1 GM in SODIUM CHLORIDE 0.9% 50 ML IVPB SCH (08:07)
[2018-02-06] MEDS: FERROUS SULFATE 325 MG TAB PO SCH (08:08)
[2018-02-06] MEDS: TOPIRAMATE 25 MG TAB PO SCH (08:08)
[2018-02-06] MEDS: METOPROLOL SUCCINATE (ER) 100 MG TAB.ER.24H PO SCH (08:08)
[2018-02-06] MEDS: PANTOPRAZOLE 40 MG TABLET PO SCH (08:08)
[2018-02-06 08:09] VITALS: RESP 16
[2018-02-06] MEDS: METOCLOPRAMIDE 5 MG/ML 2 ML VIAL IVP SCH ×2 (08:09→12:40)
[2018-02-06] MEDS: MORPHINE ORAL SOLN 10 MG/5 ML CUP PO PRN (08:09)
[2018-02-06 09:18] LABS: Basophils % (A) 0 %; Eosinophils # (A) 0.2 k/uL (0-0.7); Eosinophils % (A) 2 %; HCT 39.5 % (34.0-46.0); HGB 13.6 gm/dL (11.4-16.0); Lymphocytes # (A) 1.8 k/uL (1.0-4.8); Lymphocytes % (A) 18 %; MCH 28.9 pg (25.0-35.0); MCHC 34.4 g/dL (31.0-37.0); MCV 83.9 fL (80.0-100.0); Mean Platelet Volume 7.4; Monocytes # (A) 0.6 k/uL (0-1.0); Monocytes % (A) 6 %; Neutrophils # (A) 7.3 k/uL (1.3-7.7); Neutrophils % (A) 72 %; Platelet Count 369 k/uL (150-450); RBC 4.71 m/uL (3.80-5.40); WBC 10.2 k/uL (3.8-10.6)
[2018-02-06] MEDS: ONDANSETRON 4 MG/2 ML VIAL IVP PRN (09:47)
[2018-02-06 10:21] LABS: ALT 36 U/L (9-52); AST 31 U/L (14-36); Albumin 4.3 g/dL (3.5-5.0); Alkaline Phosphatase 88 U/L (38-126); Anion Gap 15 mmol/L; Blood Urea Nitrogen 11 mg/dL (7-17); Calcium 10.1 mg/dL (8.4-10.2); Carbon Dioxide 18 mmol/L (22-30); Chloride 110 mmol/L (98-107); Glucose 126 mg/dL (74-99); Potassium 4.4 mmol/L (3.5-5.1); Sodium 143 mmol/L (137-145); Total Bilirubin 0.3 mg/dL (0.2-1.3); Total Protein 7.1 g/dL (6.3-8.2)
[2018-02-06 11:16] LABS: Glucose,Whole Blood 98 mg/dL (75-99)
--- NOTE | 2018-02-06 15:14 | P.DS ---
Providers Date of admission: 02/01/18 20:04 Expected date of discharge: 02/06/18 Attending physician: Maryellen Joel Consults: 02/01/18 20:18 Consult Physician Stat Consulting Provider: Jerson Hansen Consult Reason/Comments: Urinary tract infection Do you want consulting provider notified?: Yes Primary care physician: Maryellen Joel [facility] Course: Discharge diagnosis 1. ESBL UTI: Continue Invanz for 2 weeks. Case discussed with ID 2. 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 Nausea and vomiting: Resolved. possibly related to the antibiotic and infection. Continue with the Zofran Olegario Reglan. Abdominal ultrasound showing hepatomegaly 5. Diarrhea possibly related to the antibiotic. C. diff negative. Lomotil as needed 6. Chronic Headaches: Continue with current pain medication 7. History of CVA Hospital course This is a 37-year-old female with a known past medical history of lupus anticoagulant disorder on anticoagulation with Xarelto, mitochondrial DNA depletion syndrome, insulin-dependent diabetes mellitus, headaches and recurrent UTI. Patient was discharged from the hospital on 01/24/2018 for UTI and possible acute right-sided pyelonephritis with sepsis. She was seen by infectious disease and they placed her on Rocephin 1 g IV daily via PICC line for 21 days. However, patient continued to have urinary symptoms. Plus she started to become febrile and having nausea and vomiting. She had 3 days or she could not keep any liquids or food down. She did go to see Dr. Joel in the office. He contacted Dr. Hansen. I Dr. Hansen had ordered Invanz to be started outpatient via her PICC line. However the Invanz was unable to get started. And patient's symptoms continued to worsen therefore she came into the emergency room. She was found to be septic with evidence of UTI. Temporal 100.2 heart rate 129 white count 13.3 lactic acid 3. Also patient had been complaining of multiple episodes of diarrhea. Stool for C. diff is negative. Patient denies any abdominal pain. Denies any chest pain or shortness of breath. She doesn't having some burning with urination with frequency and urgency. And her urine has been orange. Patient initially placed on IV Zosyn in the emergency room for her UTI. Diarrhea resolved and stool for C. diff was negative. Patient followed closely per infectious disease. Her symptoms are improving. She is tolerating diet nausea and vomiting have resolved. Urine culture grew ESBL and she will require Invanz for 2 weeks. She'll follow-up with infectious disease in 2 weeks.The Midline IV can stay in place until antibiotics are complete per Dr. Hansen. Patient medically stable for discharge I performed an examination of the patient and discussed their management with the physician [employer]. I have reviewed the Physician [employer]'s notes and agree with the documented findings and plan of care Patient Condition at Discharge: Stable Plan - Discharge Summary Discharge Rx Participant: Yes New Discharge Prescriptions: New Ertapenem [INVanz] 1 gm IVPB DAILY #14 vial Continue Cyanocobalamin [Vitamin B-12] 2,000 mcg PO HS Ferrous Sulfate [Iron (65 MG Elemental)] 325 mg PO BID tiZANidine [Zanaflex] 8 mg PO HS Rivaroxaban [Xarelto] 20 mg PO HS Metoclopramide [Reglan] 10 mg PO ACHS Levothyroxine Sodium [Synthroid] 200 mcg PO DAILY Levothyroxine Sodium [Synthroid] 50 mcg PO DAILY Insulin Glargine [Lantus] 30 unit SQ HS vial Topiramate [Topamax] 75 mg PO BID Insulin Aspart [NovoLOG Flexpen] See Protocol SQ AC-TID Trimethobenzamide HCl [Tigan] 300 mg PO TID PRN PRN Reason: Nausea Ondansetron [Zofran] 8 mg PO Q6HR PRN PRN Reason: Nausea And Vomiting Metoprolol Succinate (ER) [Toprol XL] 100 mg PO DAILY Ranitidine HCl 150 mg PO BID HYDROmorphone [Dilaudid] 2 mg PO Q4HR PRN #60 tab PRN Reason: Moderate Pain Discontinued cefTRIAXone [Rocephin] 1,000 mg IVP Q24H #21 syringe Discharge Medication List Cyanocobalamin [Vitamin B-12] 2,000 mcg PO HS 01/25/16 [History] Ferrous Sulfate [Iron (65 MG Elemental)] 325 mg PO BID 07/14/16 [History] Rivaroxaban [Xarelto] 20 mg PO HS 03/09/17 [History] tiZANidine [Zanaflex] 8 mg PO HS 03/09/17 [History] Levothyroxine Sodium [Synthroid] 50 mcg PO DAILY 07/29/17 [History] Levothyroxine Sodium [Synthroid] 200 mcg PO DAILY 07/29/17 [History] Metoclopramide [Reglan] 10 mg PO ACHS 07/29/17 [History] Insulin Glargine [Lantus] 30 unit SQ HS vial 08/05/17 [Rx] Insulin Aspart [NovoLOG Flexpen] See Protocol SQ AC-TID 09/13/17 [History] Topiramate [Topamax] 75 mg PO BID 09/13/17 [History] Ondansetron [Zofran] 8 mg PO Q6HR PRN 09/25/17 [History] Trimethobenzamide HCl [Tigan] 300 mg PO TID PRN 09/25/17 [History] Metoprolol Succinate (ER) [Toprol XL] 100 mg PO DAILY 10/24/17 [History] Ranitidine HCl 150 mg PO BID 12/17/17 [History] HYDROmorphone [Dilaudid] 2 mg PO Q4HR PRN #60 tab 01/05/18 [Rx] Ertapenem [INVanz] 1 gm IVPB DAILY #14 vial 02/06/18 [Rx] Follow up Appointment(s)/Referral(s): [facility], [NON-STAFF] - [facility], [REFERRING] - Maryellen Joel MD [Primary Care Provider] - 1 Week Jerson Hansen MD [STAFF PHYSICIAN] - 2 Weeks Ambulatory/Diagnostic Orders: Basic Metabolic Panel [LAB.AMB] Location: Determined By Patient Complete Blood Count w/diff [LAB.AMB] Location: Determined By Patient Patient Instructions/Handouts: Urinary Tract Infection in Women (DC) Activity/Diet/Wound Care/Special Instructions: Diet: diabetic Activity: as tolerated Discharge Disposition: HOME WITH HOME HEALTH SERVICES
[2018-02-06 16:28] VITALS: BP 120/87; PULSE 95; TEMP 98.9
--- NOTE | 2018-02-06 20:45 | P.PN ---
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 She has a lupus-like syndrome. And has progressive dysautonomia which is directly affecting her ability to ambulate. She also has a history of hemiplegic migraines . Recently he has had a significant urinary tract infection and was being treated with outpatient intravenous antibiotic therapy with Rocephin due to her failure of prior oral antibiotic therapy. She is doing well but then suddenly developed significant nausea emesis and some diarrhea. She has chronic gastroparesis was having difficulty tolerating food. Antibiotic therapy was transitioned to Invanz but before she could take her first dose she became so weak she presented to the emergency center. There she had evidence of hypovolemia and sepsis with a elevated lactic acid which however could be on the basis of her significant mitochondrial disease. Responded well to fluid resuscitation and was brought into hospital. Because of the urinary tract infection the infectious diseases consultation was requested. The patient's antibiotic therapy was transitioned to Zosyn and she is tolerating that well. She's feeling better. She ate some dinner and is eaten her snack this evening. She denies further studying fevers or chills. She does have the gastroparesis is doing better with the intravenous Zofran and Tigan that she cannot get at home. 02/06/2018 patient is now feeling considerably better. With antibiotic therapy, fluids and antiemetics she is eating well. Not having abdominal pain. Feeling the best she has in many days. She is getting ready for discharge to home. Objective - Vital Signs Vital signs: Vital Signs Temp 98.9 F 02/06/18 15:00 Pulse 95 02/06/18 15:00 Resp 16 02/06/18 15:00 BP 120/87 02/06/18 15:00 Pulse Ox 96 02/06/18 15:00 Intake & Output 02/06/18 02/06/18 02/07/18 06:59 18:59 06:59 Intake Total 320 Balance 320 Weight 110 kg Intake: Oral 320 Other: Voiding Method Toilet Toilet # Voids 1 2 - Exam 37-year-old female with 26 ER visits in the last 3 years HEENT: Anicteric conjunctiva are pink and moist nasal mucosa grossly intact without significant lesions, there is no thrush. Neck: The neck is supple, no significant stiffness is noted without significant lymphadenopathy or thyromegaly. Lungs: Good bilateral air entry without significant crackles or wheezing. There is no significant bronchial sounds. There is no egophony or dullness. Heart: Regular rate and rhythm with an audible S1-S2, no S3 no S4. There is no significant murmur click or rub, PMI was nondisplaced. Abdomen: Positive bowel sounds soft and minimal generalized tenderness without palpable masses or organomegaly. There was no guarding or rebound. Extremities: The upper extremities have excellent pulses they are symmetric, no significant petechiae or telangiectasia. No splinter hemorrhages were noted. The lower extremities are free from significant edema. The peripheral pulses were 2+ and symmetric. Neuro: Awake alert oriented to person place and time and time. No acute gross focal sensory motor deficit changes. But does have chronic lower extremity weakness - Labs CBC & Chem 7: 02/06/18 08:32 02/06/18 08:33 Labs: Abnormal Lab Results - Last 24 Hours (Table) 02/05/18 02/06/18 02/06/18 Range/Units 20:47 07:46 08:33 Chloride 110 H (98-107) mmol/L Carbon Dioxide 18 L (22-30) mmol/L Creatinine 0.51 L (0.52-1.04) mg/dL Glucose 126 H (74-99) mg/dL POC Glucose (mg/dL) 118 H 111 H (75-99) mg/dL Microbiology - Last 24 Hours (Table) 02/01/18 17:46 Blood Culture - Preliminary Blood No Growth after 120 hours Laboratory Results WBC 10.2 k/uL (3.8-10.6) 02/06/18 08:32 RBC 4.71 m/uL (3.80-5.40) 02/06/18 08:32 Hgb 13.6 gm/dL (11.4-16.0) 02/06/18 08:32 Hct 39.5 % (34.0-46.0) 02/06/18 08:32 MCV 83.9 fL (80.0-100.0) 02/06/18 08:32 MCH 28.9 pg (25.0-35.0) 02/06/18 08:32 MCHC 34.4 g/dL (31.0-37.0) 02/06/18 08:32 RDW 14.0 % (11.5-15.5) 02/06/18 08:32 Plt Count 369 k/uL (150-450) 02/06/18 08:32 Neutrophils % 72 % 02/06/18 08:32 Lymphocytes % 18 % 02/06/18 08:32 Monocytes % 6 % 02/06/18 08:32 Eosinophils % 2 % 02/06/18 08:32 Basophils % 0 % 02/06/18 08:32 Neutrophils # 7.3 k/uL (1.3-7.7) 02/06/18 08:32 Lymphocytes # 1.8 k/uL (1.0-4.8) 02/06/18 08:32 Monocytes # 0.6 k/uL (0-1.0) 02/06/18 08:32 Eosinophils # 0.2 k/uL (0-0.7) 02/06/18 08:32 Basophils # 0.0 k/uL (0-0.2) 02/06/18 08:32 Sodium 143 mmol/L (137-145) 02/06/18 08:33 Potassium 4.4 mmol/L (3.5-5.1) 02/06/18 08:33 Chloride 110 mmol/L (98-107) H 02/06/18 08:33 Carbon Dioxide 18 mmol/L (22-30) L 02/06/18 08:33 Anion Gap 15 mmol/L 02/06/18 08:33 BUN 11 mg/dL (7-17) 02/06/18 08:33 Creatinine 0.51 mg/dL (0.52-1.04) L 02/06/18 08:33 Est GFR (CKD-EPI)AfAm >90 (>60 ml/min/1.73 sqM) 02/06/18 08:33 Est GFR (CKD-EPI)NonAf >90 (>60 ml/min/1.73 sqM) 02/06/18 08:33 Glucose 126 mg/dL (74-99) H 02/06/18 08:33 POC Glucose (mg/dL) 98 mg/dL (75-99) 02/06/18 11:15 POC Glu [employer] Manager ISAMAR Noelle Knightica 02/06/18 11:[address] Glu mg/dL 137 02/01/18 17:46 Hemoglobin A1c 6.4 % (4.0-6.0) H 02/01/18 17:46 Lactic Ac Sepsis Rflx Y 02/01/18 18:34 Plasma Lactic Acid Joce 1.2 mmol/L (0.7-2.0) 02/01/18 22:00 Calcium 10.1 mg/dL (8.4-10.2) 02/06/18 08:33 Total Bilirubin 0.3 mg/dL (0.2-1.3) 02/06/18 08:33 AST 31 U/L (14-36) 02/06/18 08:33 ALT 36 U/L (9-52) 02/06/18 08:33 Alkaline Phosphatase 88 U/L (38-126) 02/06/18 08:33 Total Protein 7.1 g/dL (6.3-8.2) 02/06/18 08:33 Albumin 4.3 g/dL (3.5-5.0) 02/06/18 08:33 Amylase 40 U/L (30-110) 02/04/18 08:16 Lipase 76 U/L (23-300) 02/04/18 08:16 HCG, Quant <2.4 mIU/mL 02/01/18 17:46 Urine Color Yellow 02/01/18 17:46 Urine Appearance Cloudy (Clear) H 02/01/18 17:46 Urine pH 5.5 (5.0-8.0) 02/01/18 17:46 Ur Specific [place] 1.024 (1.001-1.035) 02/01/18 17:46 Urine Protein 1+ (Negative) H 02/01/18 17:46 Urine Glucose (UA) Negative (Negative) 02/01/18 17:46 Urine Ketones 2+ (Negative) H 02/01/18 17:46 Urine Blood Trace (Negative) H 02/01/18 17:46 Urine Nitrite Negative (Negative) 02/01/18 17:46 Urine Bilirubin Negative (Negative) 02/01/18 17:46 Urine Urobilinogen <2.0 mg/dL (<2.0) 02/01/18 17:46 Ur Leukocyte Esterase Trace (Negative) H 02/01/18 17:46 Urine RBC 1 /hpf (0-5) 02/01/18 17:46 Urine WBC 5 /hpf (0-5) 02/01/18 17:46 Ur Squamous Epith Cells 4 /hpf (0-4) 02/01/18 17:46 Urine Bacteria Rare /hpf (None) H 02/01/18 17:46 Hyaline Casts 16 /lpf (0-2) H 02/01/18 17:46 Urine Mucus Occasional /hpf (None) H 02/01/18 17:46 C. difficile (EIA) Intrp Negative (Negative) 02/02/18 08:36 Microbiology 02/01/18 17:46 Blood Blood Culture - Preliminary No Growth after 120 hours 02/01/18 17:46 Urine,Voided Urine Culture - Final Escherichia coli Assessment and Plan (1) Urinary tract infection Narrative/Plan: 37-year-old female who is a very complex past medical history regarding her mitochondrial disease and hemiparesis was found evidence of a group B streptococcal urinary tract infection. Is being treated with Rocephin and was originally having some improvement. She however then developed worsening of her symptoms with increasing nausea and emesis. She became very dehydrated and presented to the emergency center with is evidence of significant dehydration and elevated lactic acid. However the lactic acid could be due to her underlying mitochondrial disease. She did respond well to fluid resuscitation and was admitted to hospital. At this time she is feeling slightly better. She ate some dinner is eating her nighttime snack without nausea or emesis. She relates that she's feeling better because of the intravenous Zofran and Tigan that she can receive at the hospital. Pain control is moderate with the current oral morphine. She is denying other new acute difficulties at this time. The antibiotic therapy was transitioned to Zosyn and she is tolerating this well. Follow up cultures are pending and negative so far. She does have a mild leukocytosis compared to her last stay and will be monitored. When she has had further stability plan to complete her course of Invanz at home as early directed. Unless there are new pathogens that are found during this stay. Would like to ask if she has the possibility of taking erythromycin for her severe gastroparesis, unclear if is contraindicated with mitochondrial disease the patient thought it may have just been very expensive. Since erythromycin tends to be a very inexpensive generic would need further investigation before attempting its use. 02/06/2018 patient is now much improved. She is able to eat and drink very well. She is tolerating fluids and solid foods without difficulty. She however is receiving her antiemetics intravenously. Hopefully now that she is feeling so well, and that her infection has been improved she remain well especially during the treatment time of her IV antibiotic therapy. Invanz 1 g daily plan for home the next 2 weeks. Follow-up in the office in 2 weeks. IV access area in place via her PICC line. 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
== END 2018-02-06 16:33 | disposition home health service (06) | DRG 872 ==
LOC: EC 16:52 → 4MS4W 20:04
PROVIDERS: ADMIT Internal Medicine; ATTEND Internal Medicine
DX: A41.9 Sepsis, unspecified organism (principal); D68.62 Lupus anticoagulant syndrome; E88.40 Mitochondrial metabolism disorder, unspecified; E11.40 Type 2 diabetes mellitus with diabetic neuropathy, unspecified; K31.84 Gastroparesis; E11.43 Type 2 diabetes mellitus with diabetic autonomic (poly)neuropathy; N39.0 Urinary tract infection, site not specified; Q21.1 Atrial septal defect; G81.90 Hemiplegia, unspecified affecting unspecified side; G43.409 Hemiplegic migraine, not intractable, without status migrainosus; B96.20 Unspecified Escherichia coli [E. coli] as the cause of diseases classified elsewhere; Z16.24 Resistance to multiple antibiotics; Z16.12 Extended spectrum beta lactamase (ESBL) resistance; E86.1 Hypovolemia; E86.0 Dehydration; G90.1 Familial dysautonomia [Riley-Day]; D51.0 Vitamin B12 deficiency anemia due to intrinsic factor deficiency; I95.1 Orthostatic hypotension; E06.3 Autoimmune thyroiditis; G47.419 Narcolepsy without cataplexy; E28.2 Polycystic ovarian syndrome; F31.9 Bipolar disorder, unspecified; R16.0 Hepatomegaly, not elsewhere classified; Z79.2 Long term (current) use of antibiotics; Z79.01 Long term (current) use of anticoagulants; Z79.890 Hormone replacement therapy; Z79.4 Long term (current) use of insulin; Z79.899 Other long term (current) drug therapy; Z86.718 Personal history of other venous thrombosis and embolism; Z91.5 Personal history of self-harm; Z87.440 Personal history of urinary (tract) infections; Z86.73 Personal history of transient ischemic attack (TIA), and cerebral infarction without residual deficits; Z88.2 Allergy status to sulfonamides; Z88.7 Allergy status to serum and vaccine; Z86.14 Personal history of Methicillin resistant Staphylococcus aureus infection; Z88.8 Allergy status to other drugs, medicaments and biological substances
CPT/HCPCS: 36415; 76700; 80053; 81001; 82150; 83036; 83605; 83690; 84702; 85025; 87040; 87077; 87086; 87186; 87324; 96361; 96365; 96375; 99284

== ENCOUNTER → 2018-02-08 | Outpatient (CLI) | payer MEDICARE, OTHER ==
[~2018-02-08] MED LIST: ALTEPLASE 2 MG VIAL (CATHFLO) IV STA
[2018-02-08 14:53] VITALS: BP 127/91; PULSE 99; RESP 16; TEMP 99
== END | disposition home or self-care (01) ==
LOC: PROCWHC3 14:28
PROVIDERS: ATTEND Internal Medicine Infectious Disease
DX: T82.9XXA Unspecified complication of cardiac and vascular prosthetic device, implant and graft, initial encounter (principal); N39.0 Urinary tract infection, site not specified
CPT/HCPCS: 36593; J1642; J2997

== ENCOUNTER 2018-03-15 17:28 | Inpatient (IN) | payer MEDICARE, OTHER ==
[2018-03-15] MEDS ORDERED: SODIUM CHLORIDE 0.9% 1,000 ML IV ONE (20:15)
[2018-03-15] MEDS ORDERED: SODIUM CHLORIDE 0.9% 500 ML IV ONE (20:15)
[2018-03-15] MEDS ORDERED: ACETAMINOPHEN TAB 500 MG TAB PO STA (20:19)
--- NOTE | 2018-03-15 20:19 | ED ---
Female Urogenital HPI <Ashvin Sahni - Last Filed: 03/15/18 21:40> - General Source: patient Mode of arrival: wheelchair Limitations: no limitations <Jade Ramires - Last Filed: 03/16/18 00:14> - General Chief complaint: Urogenital Stated complaint: UTI Time Seen by Provider: 03/15/18 20:10 - History of Present Illness Initial comments: 37-year-old female patient presents to the emergency department today for evaluation of dysuria, vomiting, and right lower back pain. Patient states that symptoms started for her on Tuesday. Patient has an extensive past medical history which includes urinary tract infection with sepsis. States that she just had her PICC line removed 2 weeks ago after receiving month-long IV antibiotics for urinary tract infection. Patient states that she did see her primary care physician today and was diagnosed with urinary tract infection and started on antibiotics. She states that he she is instructed to come to the emergency department for symptoms worsened. Patient states that she has been vomiting and unable to keep down any food or fluids. States that she has had temperatures high as 101F at home. Patient is also complaining of right lower quadrant abdominal pain. Patient denies any recent rash, fever, chills, shortness breath, chest pain, diarrhea, constipation, back pain, numbness, tingling, dizziness, weakness, headache, visual changes, or any other complaints. (Jade Ramires) - Related Data Home Medications Medication Instructions Recorded Confirmed Cyanocobalamin [Vitamin B-12] 2,000 mcg PO HS 01/25/16 03/15/18 Ferrous Sulfate [Iron (65 MG 325 mg PO BID 07/14/16 03/15/18 Elemental)] Rivaroxaban [Xarelto] 20 mg PO HS 03/09/17 03/15/18 tiZANidine [Zanaflex] 8 mg PO HS 03/09/17 03/15/18 Levothyroxine Sodium [Synthroid] 50 mcg PO DAILY 07/29/17 03/15/18 Levothyroxine Sodium [Synthroid] 200 mcg PO DAILY 07/29/17 03/15/18 Metoclopramide [Reglan] 10 mg PO ACHS 07/29/17 03/15/18 Insulin Aspart [NovoLOG Flexpen] See Protocol SQ AC-TID 09/13/17 03/15/18 Topiramate [Topamax] 75 mg PO BID 09/13/17 03/15/18 Ondansetron [Zofran] 8 mg PO Q6HR PRN 09/25/17 03/15/18 Trimethobenzamide HCl [Tigan] 300 mg PO TID PRN 09/25/17 03/15/18 Metoprolol Succinate (ER) [Toprol 100 mg PO DAILY 10/24/17 03/15/18 XL] Ranitidine HCl 150 mg PO BID 12/17/17 03/15/18 Insulin Glargine [Lantus] 35 unit SQ HS 03/15/18 03/15/18 Losartan [Cozaar] 50 mg PO DAILY 03/15/18 03/15/18 Previous Rx's Medication Instructions Recorded HYDROmorphone [Dilaudid] 2 mg PO Q4HR PRN #60 tab 01/05/18 Allergies Allergy/AdvReac Type Severity Reaction Status Date / Time barium sulfate Allergy Anaphylaxis Verified 03/15/18 20:01 diphtheria, pertussis, Allergy Unknown Verified 03/15/18 20:01 tetanus vacc doxepin [Doxepin] Allergy Anaphylaxis Verified 03/15/18 20:01 influenza virus vaccine, Allergy Rash/Hives Verified 03/15/18 20:01 specific [Influenza Virus Vacc,Specific] promethazine HCl Allergy Anaphylaxis Verified 03/15/18 20:01 [From Phenergan] doxycycline AdvReac Nausea & Verified 03/15/18 20:01 Vomiting & Diarrhea Pertussis Vaccines AdvReac fever/seizu Verified 03/15/18 20:01 re pseudoephedrine AdvReac Chest Pain Verified 03/15/18 20:01 pseudoephedrine HCl AdvReac Chest Pain Verified 03/15/18 20:01 [From Sudafed] sulfamethoxazole AdvReac Nausea & Verified 03/15/18 20:01 [From Bactrim] Vomiting trimethoprim [From Bactrim] AdvReac Nausea & Verified 03/15/18 20:01 Vomiting Review of Systems ROS Other: All systems not noted in ROS Statement are negative. <Ashvin Sahni - Last Filed: 03/15/18 21:40> ROS Other: All systems not noted in ROS Statement are negative. <Jade Ramires - Last Filed: 03/16/18 00:14> ROS Statement: Those systems with pertinent positive or pertinent negative responses have been documented in the HPI. Past Medical History Past Medical History: Chest Pain / Angina, CVA/TIA, Diabetes Mellitus, Deep Vein Thrombosis (DVT), Neurologic Disorder, Syncope, Thyroid Disorder Additional Past Medical History / Comment(s): Dysautonomia-progressive neurological disorder, lupus/LUPUS ANTICOAGULANTS, 2004 CVA without residual, ana maria's disease, lymphedema Lt arm d/t DVTs , v-tach, pituitary microadenoma. "mitochondrial disease". patent foramen ovale, narcolepsy, gastropareis, IDDM type II, uti's, falls, orthostatic hypotension/syncope, migraines with hemiplegia, pernicious anemia, polycystic ovarian syndrome, neuropathy bilateral legs/fee-mild, uterine ablation August 2015/patient no longer has periods. History of Any Multi-Drug Resistant Organisms: ESBL, MRSA Date of last positivie culture/infection: 03/09/17,02/01/18 ESBL MDRO Source:: LEFT ARM, URINE ECOLI Past Surgical History: Uterine Ablation Additional Past Surgical History / Comment(s): colonscopy/egd, anige, stress test. Past Anesthesia/Blood Transfusion Reactions: No Reported Reaction Additional Past Anesthesia/Blood Transfusion Reaction / Comment(s): patient states "It takes a lot of anesthesia for my body to react". Pt has received blood in past without reaction. Past Psychological History: Bipolar, Depression Smoking Status: Never smoker Past Alcohol Use History: None Reported Past Drug Use History: None Reported - Past Family History Brother(s) Family Medical History: Diabetes Mellitus, Hyperlipidemia, Hypertension Additional Family Medical History / Comment(s): Patient states she has 1 brother with no major medical problems. Father Family Medical History: Hyperlipidemia, Hypertension Additional Family Medical History / Comment(s): DAD IS 70 YEARS OLD. Patient states she does not have any contact with her father and does not know his medical history. Mother Family Medical History: Chest Pain / Angina, CVA/TIA, Hyperlipidemia, Hypertension Additional Family Medical History / Comment(s): AGE 62 HAS LUPUS, blood pressure swings high to low <Jade Ramires - Last Filed: 03/16/18 00:14> General Exam Limitations: no limitations General appearance: alert, in no apparent distress, other (This is a well- developed, obese adult female patient in no acute distress. Vital signs upon presentation are temperature 100.2F, pulse 133, respirations 18, blood pressure 136/90, pulse ox 97% on room air.) Eye exam: Present: normal appearance, PERRL, EOMI. Absent: scleral icterus, conjunctival injection, periorbital swelling ENT exam: Present: normal exam, normal oropharynx, mucous membranes moist Respiratory exam: Present: normal lung sounds bilaterally. Absent: respiratory distress, wheezes, rales, rhonchi, stridor Cardiovascular Exam: Present: regular rate, normal rhythm, normal heart sounds. Absent: systolic murmur, diastolic murmur, rubs, gallop, clicks GI/Abdominal exam: Present: soft, tenderness (Right lower quadrant abdominal tenderness), normal bowel sounds. Absent: distended, guarding, rebound, rigid Back exam: Present: normal inspection, CVA tenderness (R). Absent: CVA tenderness (L) Neurological exam: Present: alert, oriented X3, CN II-XII intact Psychiatric exam: Present: normal affect, normal mood Skin exam: Present: warm, dry, intact, normal color. Absent: rash <Jade Ramires - Last Filed: 03/16/18 00:14> Vital Signs 03/15/18 03/15/18 03/15/18 17:44 21:33 22:29 Temperature 100.2 F H 99.9 F H Pulse Rate 133 H 115 H 110 H Respiratory 18 20 18 Rate Blood Pressure 136/90 142/82 138/70 O2 Sat by Pulse 97 95 98 Oximetry 03/15/18 23:16 Temperature 98.8 F Pulse Rate 102 H Respiratory 20 Rate Blood Pressure 130/92 O2 Sat by Pulse 96 Oximetry Medical Decision Making - Lab Data Result diagrams: 03/15/18 20:26 03/15/18 20:26 <Ashvin Sahni - Last Filed: 03/15/18 21:40> - Lab Data Result diagrams: 03/15/18 20:26 03/15/18 20:26 - Radiology Data Radiology results: report reviewed, image reviewed <Jade Ramires - Last Filed: 03/16/18 00:14> - Medical Decision Making 37 old female patient presents to the emergency department today for complaints of right flank pain, right abdominal pain, either, and dysuria. Physical examination reveals some right lower quadrant abdominal tenderness and some right CVA tenderness. Labs reviewed and did reveal an elevated white blood cell count at 13.3, plasma lactic acid was 2.6, urinalysis showed 1+ protein, 2 + ketones, small amount of blood, 6 white blood cells, rare bacteria, 11 Hyalin casts, occasional urine mucus. Patient does have an extensive history of urinary tract infection with sepsis. Patient is febrile, elevated white blood cell, tachycardic here in the department. Urinalysis is questionable for infection. CT abdomen and pelvis is negative for any acute infection We will start patient on ertapenem per her history and admitted to the hospital for further evaluation. (Jade Ramires) - Lab Data Lab Results 03/15/18 03/15/18 03/15/18 Range/Units 20:26 20:26 20:26 WBC 13.3 H (3.8-10.6) k/uL RBC 5.10 (3.80-5.40) m/uL Hgb 14.4 (11.4-16.0) gm/dL Hct 43.0 (34.0-46.0) % MCV 84.4 (80.0-100.0) fL MCH 28.2 (25.0-35.0) pg MCHC 33.4 (31.0-37.0) g/dL RDW 14.1 (11.5-15.5) % Plt Count 454 H (150-450) k/uL Neutrophils % 82 % Lymphocytes % 12 % Monocytes % 4 % Eosinophils % 1 % Basophils % 0 % Neutrophils # 10.9 H (1.3-7.7) k/uL Lymphocytes # 1.6 (1.0-4.8) k/uL Monocytes # 0.6 (0-1.0) k/uL Eosinophils # 0.1 (0-0.7) k/uL Basophils # 0.0 (0-0.2) k/uL Sodium 145 (137-145) mmol/L Potassium 4.4 (3.5-5.1) mmol/L Chloride 108 H (98-107) mmol/L Carbon Dioxide 17 L (22-30) mmol/L Anion Gap 20 mmol/L BUN 10 (7-17) mg/dL Creatinine 0.60 (0.52-1.04) mg/dL Est GFR (CKD-EPI)AfAm >90 (>60 ml/min/1.73 sqM) Est GFR (CKD-EPI)NonAf >90 (>60 ml/min/1.73 sqM) Glucose 173 H (74-99) mg/dL Lactic Ac Sepsis Rflx Plasma Lactic Acid Joce 2.6 H* (0.7-2.0) mmol/L Calcium 10.7 H (8.4-10.2) mg/dL Total Bilirubin 0.4 (0.2-1.3) mg/dL AST 19 (14-36) U/L ALT 23 (9-52) U/L Alkaline Phosphatase 120 (38-126) U/L Total Protein 8.0 (6.3-8.2) g/dL Albumin 4.9 (3.5-5.0) g/dL Urine Color Urine Appearance (Clear) Urine pH (5.0-8.0) Ur Specific Erin (1.001-1.035) Urine Protein (Negative) Urine Glucose (UA) (Negative) Urine Ketones (Negative) Urine Blood (Negative) Urine Nitrite (Negative) Urine Bilirubin (Negative) Urine Urobilinogen (<2.0) mg/dL Ur Leukocyte Esterase (Negative) Urine RBC (0-5) /hpf Urine WBC (0-5) /hpf Ur Squamous Epith Cells (0-4) /hpf Urine Bacteria (None) /hpf Hyaline Casts (0-2) /lpf Urine Mucus (None) /hpf Urine HCG, Qual (Not Detectd) 03/15/18 03/15/18 03/15/18 Range/Units 20:26 20:46 20:57 WBC (3.8-10.6) k/uL RBC (3.80-5.40) m/uL Hgb (11.4-16.0) gm/dL Hct (34.0-46.0) % MCV (80.0-100.0) fL MCH (25.0-35.0) pg MCHC (31.0-37.0) g/dL RDW (11.5-15.5) % Plt Count (150-450) k/uL Neutrophils % % Lymphocytes % % Monocytes % % Eosinophils % % Basophils % % Neutrophils # (1.3-7.7) k/uL Lymphocytes # (1.0-4.8) k/uL Monocytes # (0-1.0) k/uL Eosinophils # (0-0.7) k/uL Basophils # (0-0.2) k/uL Sodium (137-145) mmol/L Potassium (3.5-5.1) mmol/L Chloride (98-107) mmol/L Carbon Dioxide (22-30) mmol/L Anion Gap mmol/L BUN (7-17) mg/dL Creatinine (0.52-1.04) mg/dL Est GFR (CKD-EPI)AfAm (>60 ml/min/1.73 sqM) Est GFR (CKD-EPI)NonAf (>60 ml/min/1.73 sqM) Glucose (74-99) mg/dL Lactic Ac Sepsis Rflx Y Plasma Lactic Acid Joce (0.7-2.0) mmol/L Calcium (8.4-10.2) mg/dL Total Bilirubin (0.2-1.3) mg/dL AST (14-36) U/L ALT (9-52) U/L Alkaline Phosphatase (38-126) U/L Total Protein (6.3-8.2) g/dL Albumin (3.5-5.0) g/dL Urine Color Brown Urine Appearance Clear (Clear) Urine pH 5.0 (5.0-8.0) Ur Specific Erin 1.020 (1.001-1.035) Urine Protein 1+ H (Negative) Urine Glucose (UA) Negative (Negative) Urine Ketones 2+ H (Negative) Urine Blood Small H (Negative) Urine Nitrite Negative (Negative) Urine Bilirubin Negative (Negative) Urine Urobilinogen <2.0 (<2.0) mg/dL Ur Leukocyte Esterase Negative (Negative) Urine RBC <1 (0-5) /hpf Urine WBC 6 H (0-5) /hpf Ur Squamous Epith Cells 2 (0-4) /hpf Urine Bacteria Rare H (None) /hpf Hyaline Casts 11 H (0-2) /lpf Urine Mucus Occasional H (None) /hpf Urine HCG, Qual Not Detected (Not Detectd) Disposition <Ashvin Sahni - Last Filed: 03/15/18 21:40> Decision to Admit Reason: Admit from [facility] Decision Date: 03/15/18 Decision Time: 23:13 <Jade Ramires - Last Filed: 03/16/18 00:14> Clinical Impression: UTI (urinary tract infection), Sepsis Disposition: ADMITTED IP TO THIS HOSP Condition: Serious
[2018-03-15 20:40] LABS: Basophils % (A) 0 %; Eosinophils # (A) 0.1 k/uL (0-0.7); Eosinophils % (A) 1 %; HGB 14.4 gm/dL (11.4-16.0); Lymphocytes # (A) 1.6 k/uL (1.0-4.8); Lymphocytes % (A) 12 %; MCH 28.2 pg (25.0-35.0); MCHC 33.4 g/dL (31.0-37.0); MCV 84.4 fL (80.0-100.0); Mean Platelet Volume 6.8; Monocytes # (A) 0.6 k/uL (0-1.0); Monocytes % (A) 4 %; Neutrophils # (A) 10.9 k/uL (1.3-7.7); Neutrophils % (A) 82 %; Platelet Count 454 k/uL (150-450); RDW 14.1 % (11.5-15.5); WBC 13.3 k/uL (3.8-10.6)
[2018-03-15 20:44] LABS: Appearance,Urine Clear (Clear); Bacteria,Urine Rare /hpf; Bilirubin,Urine Negative (Negative); Blood,Urine Small (Negative); Color,Urine Brown; Glucose,Urine (UA) Negative (Negative); Hyaline Casts,Urine 11 /lpf (0-2); Ketones,Urine 2+ (Negative); Leukocyte Esterase,Urine Negative (Negative); Mucus,Urine Occasional /hpf; Nitrite,Urine Negative (Negative); Protein,Urine 1+ (Negative); RBC,Urine <1 /hpf (0-5); Squamous Epithelial Cell,Urine 2 /hpf (0-4); Urobilinogen,Urine <2.0 mg/dL (<2.0); WBC,Urine 6 /hpf (0-5)
[2018-03-15 20:54] LABS: ALT 23 U/L (9-52); AST 19 U/L (14-36); Albumin 4.9 g/dL (3.5-5.0); Alkaline Phosphatase 120 U/L (38-126); Anion Gap 20 mmol/L; Blood Urea Nitrogen 10 mg/dL (7-17); Calcium 10.7 mg/dL (8.4-10.2); Carbon Dioxide 17 mmol/L (22-30); Chloride 108 mmol/L (98-107); Glucose 173 mg/dL (74-99); Potassium 4.4 mmol/L (3.5-5.1); Sodium 145 mmol/L (137-145); Total Bilirubin 0.4 mg/dL (0.2-1.3)
[2018-03-15] MEDS ORDERED: ERTAPENEM 1 GM in SODIUM CHLORIDE 0.9% 50 ML IVPB STA (21:42)
[2018-03-15] MEDS ORDERED: RX INFO: IV CONTRAST WAS GIVEN 1 EACH MISC MISCELLANE PRN (21:42)
--- NOTE | 2018-03-15 22:27 | CT ---
EXAMINATION TYPE: CT abdomen pelvis w con DATE OF EXAM: 03/15/2018 COMPARISON: 01/21/2018 HISTORY: Lower abdominal pain with nausea x4 days CT DLP: 1842.4 mGycm Automated exposure control for dose reduction was used. TECHNIQUE: Helical acquisition of images was performed from the lung bases through the pelvis. CONTRAST: Performed without Oral Contrast and with IV Contrast, patient injected with 100 mL of Isovue 300. FINDINGS: Lung bases are clear. There is no pleural effusion. Heart size is normal. Liver spleen pancreas gallbladder appear normal. Bile ducts are not dilated. There is no adrenal mass. Kidneys show satisfactory contrast opacification. There is no hydronephrosi s. There is no retroperitoneal adenopathy. There is no ascites. Bladder distends smoothly. There is n o evidence of a pelvic mass. Appendix appears normal. I see no intestinal wall thickening. There are no dilated loops. Uterus is somewhat anteverted. The lumbar spine is intact. I see no bony destructive process. There i s no sign of a hernia. IMPRESSION: NEGATIVE CT SCAN OF THE ABDOMEN AND PELVIS. NO ADVERSE CHANGE COMPARED TO OLD EXAM. NORMAL APPENDIX.
[2018-03-15] MEDS ORDERED: NALOXONE 0.4 MG/ML 1 ML VIAL IV PRN (23:10)
[2018-03-15] MEDS ORDERED: ONDANSETRON 4 MG/2 ML VIAL IVP STA (23:31)
[2018-03-16] MEDS ORDERED: INSULIN DETEMIR 100 UNIT/ML 10 ML VIAL SQ SCH (00:10)
[2018-03-16 00:19] VITALS: BMI 39.9
[2018-03-16] MEDS ORDERED: METOPROLOL SUCCINATE (ER) 100 MG TAB.ER.24H PO STA (00:28)
[2018-03-16 00:42] LABS: Glucose,Whole Blood 163 mg/dL (75-99)
[2018-03-16] MEDS: HYDROmorphone 2 MG TAB PO PRN ×4 (02:31→21:10)
[2018-03-16] MEDS: SODIUM CHLORIDE 0.9% 1,000 ML IV SCH ×3 (04:30→18:03)
[2018-03-16] MEDS: LEVOTHYROXINE 100 MCG TAB PO SCH (05:52)
[2018-03-16] MEDS: LEVOTHYROXINE 50 MCG TAB PO SCH (05:52)
[2018-03-16 07:11] LABS: Basophils % (A) 0 %; Eosinophils # (A) 0.2 k/uL (0-0.7); Eosinophils % (A) 2 %; HGB 11.8 gm/dL (11.4-16.0); Lymphocytes # (A) 2.2 k/uL (1.0-4.8); Lymphocytes % (A) 24 %; MCH 27.9 pg (25.0-35.0); MCHC 32.9 g/dL (31.0-37.0); MCV 84.7 fL (80.0-100.0); Mean Platelet Volume 6.5; Monocytes # (A) 0.7 k/uL (0-1.0); Monocytes % (A) 7 %; Neutrophils # (A) 5.9 k/uL (1.3-7.7); Neutrophils % (A) 64 %; Platelet Count 374 k/uL (150-450); RBC 4.25 m/uL (3.80-5.40); WBC 9.3 k/uL (3.8-10.6)
[2018-03-16 07:28] LABS: Anion Gap 13 mmol/L; Blood Urea Nitrogen 10 mg/dL (7-17); Calcium 9.5 mg/dL (8.4-10.2); Carbon Dioxide 19 mmol/L (22-30); Chloride 109 mmol/L (98-107); Glucose 117 mg/dL (74-99); Potassium 4.2 mmol/L (3.5-5.1); Sodium 141 mmol/L (137-145)
[2018-03-16 07:41] LABS: Glucose,Whole Blood 127 mg/dL (75-99)
[2018-03-16] MEDS: ONDANSETRON 4 MG/2 ML VIAL IVP PRN ×2 (08:43→18:03)
[2018-03-16] MEDS: METOPROLOL SUCCINATE (ER) 100 MG TAB.ER.24H PO SCH (08:44)
[2018-03-16] MEDS: TOPIRAMATE 25 MG TAB PO SCH ×2 (08:44→21:06)
[2018-03-16] MEDS: LOSARTAN 50 MG TAB PO SCH (08:44)
[2018-03-16] MEDS: FERROUS SULFATE 325 MG TAB PO SCH ×2 (08:44→21:05)
[2018-03-16] MEDS: METOCLOPRAMIDE 10 MG TAB PO SCH ×4 (08:44→21:05)
[2018-03-16] MEDS: FAMOTIDINE 20 MG TAB PO SCH ×2 (08:44→21:05)
--- NOTE | 2018-03-16 08:51 | P.CONS ---
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 She also has a history of hemiplegic migraines. Patient had a recent admission on February 02 which time she was treated for E. coli ESBL UTI with ertapenem. She was discharged home on a 14 day course in the midline in the right arm. She completed her course of antibiotics and the midline was removed. She had [facility] and [facility] infusion in place. She did have a follow-up appointment with Dr. Hansen at the beginning of February. Her urinalysis on February 23 was clear with nitrate and leukoesterase negative and patient was symptom-free at that time. Patient states that on Tuesday she started having dysuria with pain and burning with urination as well as right lower abdominal pain and right back pain. This progressed and she ended up seeing her primary care physician yesterday and was diagnosed with UTI but did not start taking antibiotics. Her condition progressively worsened and she developed vomiting and fever of 101. She then came into [facility] emergency center where her temperature was 100.2, pulse 133, white count of 13.3. Creatinine was 0.45. Initial lactic acid was 2.6 and repeat was 1.7. Urinalysis was brown, clear, routine 1+, ketones 2+, blood small, nitrate and leukoesterase negative, wbc's 6, bacteria rare. HCG was not detected. Urine culture in progress and blood culture status received. CAT scan of the abdomen and pelvis with contrast was negative for any acute findings. She was started on her dependent and admitted to the [facility] floor. She is essentially wheelchair bound and can walk only short distances. She denies having any falls at home. She does complain of headache. Review of Systems All systems: negative Constitutional: Reports anorexia, Reports chills, Reports chronic headaches, Reports fatigue, Reports fever, Reports lethargy, Reports malaise, Reports poor appetite, Reports weakness Eyes: denies blurred vision, denies pain Ears, nose, mouth and throat: Denies dental pain, Denies headache, Denies mouth pain, Denies sore throat, Denies vertigo Cardiovascular: Denies chest pain, Denies decreased exercise tolerance, Denies dyspnea on exertion, Denies edema, Denies leg edema, Denies lightheadedness, Denies shortness of breath, Denies syncope Respiratory: Denies cough, Denies cough with sputum, Denies dyspnea, Denies excessive sputum, Denies hemoptysis, Denies home oxygen, Denies wheezing Gastrointestinal: Reports abdominal pain, Reports loss of appetite, Reports nausea, Reports vomiting, Denies diarrhea, Denies melena Genitourinary: Reports dysuria, Reports urgency, Denies hematuria, Denies kidney stones Musculoskeletal: Reports low back pain, Denies myalgias Integumentary: Denies pruritus, Denies rash Neurological: Denies numbness, Denies weakness Psychiatric: Denies anxiety, Denies depression Endocrine: Denies fatigue, Denies weight change Past Medical History Past Medical History: Chest Pain / Angina, CVA/TIA, Diabetes Mellitus, Deep Vein Thrombosis (DVT), Neurologic Disorder, Syncope, Thyroid Disorder Additional Past Medical History / Comment(s): Dysautonomia-progressive neurological disorder, lupus/LUPUS ANTICOAGULANTS, 2003 CVA without residual, ana maria's disease, lymphedema Lt arm d/t DVTs , v-tach, pituitary microadenoma. "mitochondrial disease". patent foramen ovale, narcolepsy, gastropareis, IDDM type II, uti's, falls, orthostatic hypotension/syncope, migraines with hemiplegia, pernicious anemia, polycystic ovarian syndrome, neuropathy bilateral legs/fee-mild, uterine ablation August 2015/patient no longer has periods. History of Any Multi-Drug Resistant Organisms: ESBL, MRSA Year Discovered:: 03/09/17,02/01/18 ESBL MDRO Source:: LEFT ARM, URINE ECOLI Past Surgical History: Uterine Ablation Additional Past Surgical History / Comment(s): colonscopy/egd, angie, stress test. Past Anesthesia/Blood Transfusion Reactions: No Reported Reaction Additional Past Anesthesia/Blood Transfusion Reaction / Comm: patient states " It takes a lot of anesthesia for my body to react". Pt has received blood in past without reaction. Past Psychological History: Bipolar, Depression Smoking Status: Never smoker Past Alcohol Use History: None Reported Additional Past Alcohol Use History / Comment(s): Patient is a lifelong nonsmoker. She denies any medical marijuana, marijuana, street drug or alcohol use. She resides with her mom. She can walk short distances and otherwise uses a wheelchair. She has a walker. She does not drive but usually gets appointments by [facility]. She has history of suicide attempt in 2015 but states depression is stable. No animal exposures. Patient is single without children. Patient denies any family members with her genetic disorder. Past Drug Use History: None Reported - Past Family History Brother(s) Family Medical History: Diabetes Mellitus, Hyperlipidemia, Hypertension Additional Family Medical History / Comment(s): Patient states she has 1 brother with no major medical problems. Father Family Medical History: Hyperlipidemia, Hypertension Additional Family Medical History / Comment(s): DAD IS 70 YEARS OLD. Patient states she does not have any contact with her father and does not know his medical history. Mother Family Medical History: Chest Pain / Angina, CVA/TIA, Hyperlipidemia, Hypertension Additional Family Medical History / Comment(s): AGE 62 HAS LUPUS, blood pressure swings high to low Medications and Allergies Home Medications Medication Instructions Recorded Confirmed Type Cyanocobalamin [Vitamin B-12] 2,000 mcg PO HS 01/25/16 03/15/18 History Ferrous Sulfate [Iron (65 MG 325 mg PO BID 07/14/16 03/15/18 History Elemental)] Rivaroxaban [Xarelto] 20 mg PO HS 03/09/17 03/15/18 History tiZANidine [Zanaflex] 8 mg PO HS 03/09/17 03/15/18 History Levothyroxine Sodium [Synthroid] 50 mcg PO DAILY 07/29/17 03/15/18 History Levothyroxine Sodium [Synthroid] 200 mcg PO DAILY 07/29/17 03/15/18 History Metoclopramide [Reglan] 10 mg PO ACHS 07/29/17 03/15/18 History Insulin Aspart [NovoLOG Flexpen] See Protocol SQ AC-TID 09/13/17 03/15/18 History Topiramate [Topamax] 75 mg PO BID 09/13/17 03/15/18 History Ondansetron [Zofran] 8 mg PO Q6HR PRN 09/25/17 03/15/18 History Trimethobenzamide HCl [Tigan] 300 mg PO TID PRN 09/25/17 03/15/18 History Metoprolol Succinate (ER) [Toprol 100 mg PO DAILY 10/24/17 03/15/18 History XL] Ranitidine HCl 150 mg PO BID 12/17/17 03/15/18 History HYDROmorphone [Dilaudid] 2 mg PO Q4HR PRN #60 tab 01/05/18 03/15/18 Rx Insulin Glargine [Lantus] 35 unit SQ HS 03/15/18 03/15/18 History Losartan [Cozaar] 50 mg PO DAILY 03/15/18 03/15/18 History Allergies Allergy/AdvReac Type Severity Reaction Status Date / Time barium sulfate Allergy Anaphylaxis Verified 03/15/18 20:01 diphtheria, pertussis, Allergy Unknown Verified 03/15/18 20:01 tetanus vacc doxepin [Doxepin] Allergy Anaphylaxis Verified 03/15/18 20:01 influenza virus vaccine, Allergy Rash/Hives Verified 03/15/18 20:01 specific [Influenza Virus Vacc,Specific] promethazine HCl Allergy Anaphylaxis Verified 03/15/18 20:01 [From Phenergan] doxycycline AdvReac Nausea & Verified 03/15/18 20:01 Vomiting & Diarrhea Pertussis Vaccines AdvReac fever/seizu Verified 03/15/18 20:01 re pseudoephedrine AdvReac Chest Pain Verified 03/15/18 20:01 pseudoephedrine HCl AdvReac Chest Pain Verified 03/15/18 20:01 [From Sudafed] sulfamethoxazole AdvReac Nausea & Verified 03/15/18 20:01 [From Bactrim] Vomiting trimethoprim [From Bactrim] AdvReac Nausea & Verified 03/15/18 20:01 Vomiting Physical Exam Vitals: Vital Signs Temp Pulse Pulse Resp BP BP Pulse Ox 03/16/18 07:30 97.9 F 80 18 129/87 97 03/16/18 02:26 96 136/86 03/16/18 00:19 98.9 F 110 H 18 151/102 96 03/15/18 23:16 98.8 F 102 H 20 130/92 96 03/15/18 22:29 99.9 F H 110 H 18 138/70 98 03/15/18 21:33 115 H 20 142/82 95 03/15/18 17:44 100.2 F H 133 H 18 136/90 97 Intake and Output 03/15/18 03/16/18 03/16/18 22:59 06:59 14:59 Intake Total 600 Balance 600 Intake: Intake, IV Titration 600 Amount Sodium Chloride 0.9% 1, 600 000 ml @ 100 mls/hr IV . Q10H JOSE Rx#:[id number] Other: Voiding Method Toilet # Voids 1 Weight 108.862 kg 108.862 kg Gen: This is a 37-year-old female patient. She is in bed and appears to be sleeping but awakens easily to verbal stimuli. She appears to be comfortable. She does complain of nausea worsened by the food at her bedside. HEENT: Head is atraumatic, normocephalic. Pupils equal, round. Sclerae is anicteric. Oral mucous membranes are slightly dry. NECK: Supple. No JVD. No lymphadenopathy. No thyromegaly. LUNGS: Clear to auscultation. No wheezes or rhonchi. No intercostal retractions. HEART: Regular rate and rhythm. No murmur. ABDOMEN: Soft. Bowel sounds are present. No masses. Tenderness to the right lower quadrant as well as CVA tenderness on the right EXTREMITIES: No pedal edema. No calf tenderness. Dorsalis pedis +2 bilaterally. NEUROLOGICAL: Patient is awake, alert and oriented x3. Cranial nerves 2 through 12 are grossly intact. Results Results: Laboratory Results WBC 9.3 k/uL (3.8-10.6) 03/16/18 06:50 RBC 4.25 m/uL (3.80-5.40) 03/16/18 06:50 Hgb 11.8 gm/dL (11.4-16.0) 03/16/18 06:50 Hct 36.0 % (34.0-46.0) 03/16/18 06:50 MCV 84.7 fL (80.0-100.0) 03/16/18 06:50 MCH 27.9 pg (25.0-35.0) 03/16/18 06:50 MCHC 32.9 g/dL (31.0-37.0) 03/16/18 06:50 RDW 14.0 % (11.5-15.5) 03/16/18 06:50 Plt Count 374 k/uL (150-450) 03/16/18 06:50 Neutrophils % 64 % 03/16/18 06:50 Lymphocytes % 24 % 03/16/18 06:50 Monocytes % 7 % 03/16/18 06:50 Eosinophils % 2 % 03/16/18 06:50 Basophils % 0 % 03/16/18 06:50 Neutrophils # 5.9 k/uL (1.3-7.7) 03/16/18 06:50 Lymphocytes # 2.2 k/uL (1.0-4.8) 03/16/18 06:50 Monocytes # 0.7 k/uL (0-1.0) 03/16/18 06:50 Eosinophils # 0.2 k/uL (0-0.7) 03/16/18 06:50 Basophils # 0.0 k/uL (0-0.2) 03/16/18 06:50 Sodium 141 mmol/L (137-145) 03/16/18 06:50 Potassium 4.2 mmol/L (3.5-5.1) 03/16/18 06:50 Chloride 109 mmol/L (98-107) H 03/16/18 06:50 Carbon Dioxide 19 mmol/L (22-30) L 03/16/18 06:50 Anion Gap 13 mmol/L 03/16/18 06:50 BUN 10 mg/dL (7-17) 03/16/18 06:50 Creatinine 0.45 mg/dL (0.52-1.04) L 03/16/18 06:50 Est GFR (CKD-EPI)AfAm >90 (>60 ml/min/1.73 sqM) 03/16/18 06:50 Est GFR (CKD-EPI)NonAf >90 (>60 ml/min/1.73 sqM) 03/16/18 06:50 Glucose 117 mg/dL (74-99) H 03/16/18 06:50 POC Glucose (mg/dL) 127 mg/dL (75-99) H 03/16/18 07:29 POC Glu Rn Observation ID Val Hernandez 03/16/18 07:29 Lactic Ac Sepsis Rflx Y 03/15/18 20:57 Plasma Lactic Acid Joce 1.7 mmol/L (0.7-2.0) 03/16/18 00:17 Calcium 9.5 mg/dL (8.4-10.2) 03/16/18 06:50 Total Bilirubin 0.4 mg/dL (0.2-1.3) 03/15/18 20: AST 19 U/L (14-36) 03/15/18 20:26 ALT 23 U/L (9-52) 03/15/18 20:26 Alkaline Phosphatase 120 U/L (38-126) 03/15/18 20: Total Protein 8.0 g/dL (6.3-8.2) 03/15/18 20: Albumin 4.9 g/dL (3.5-5.0) 03/15/18 20: Urine Color Brown 03/15/18 20: Urine Appearance Clear (Clear) 03/15/18 20: Urine pH 5.0 (5.0-8.0) 03/15/18 20: Ur Specific Topping 1.020 (1.001-1.035) 03/15/18 20: Urine Protein 1+ (Negative) H 03/15/18 20: Urine Glucose (UA) Negative (Negative) 03/15/18 20: Urine Ketones 2+ (Negative) H 03/15/18 20: Urine Blood Small (Negative) H 03/15/18 20: Urine Nitrite Negative (Negative) 03/15/18 20: Urine Bilirubin Negative (Negative) 03/15/18 20:26 Urine Urobilinogen <2.0 mg/dL (<2.0) 03/15/18 20:26 Ur Leukocyte Esterase Negative (Negative) 03/15/18 20: Urine RBC <1 /hpf (0-5) 03/15/18 20:26 Urine WBC 6 /hpf (0-5) H 03/15/18 20:26 Ur Squamous Epith Cells 2 /hpf (0-4) 03/15/18 20:26 Urine Bacteria Rare /hpf (None) H 03/15/18 20: Hyaline Casts 11 /lpf (0-2) H 03/15/18 20:26 Urine Mucus Occasional /hpf (None) H 03/15/18 20:26 Urine HCG, Qual Not Detected (Not Detectd) 03/15/18 20:46 CBC & Chem 7: 03/16/18 06:50 03/16/18 06:50 Labs: Abnormal Lab Results - Last 24 Hours (Table) 03/15/18 03/15/18 03/15/18 Range/Units 20:26 20:26 20:26 WBC 13.3 H (3.8-10.6) k/uL Plt Count 454 H (150-450) k/uL Neutrophils # 10.9 H (1.3-7.7) k/uL Chloride 108 H (98-107) mmol/L Carbon Dioxide 17 L (22-30) mmol/L Creatinine (0.52-1.04) mg/dL Glucose 173 H (74-99) mg/dL POC Glucose (mg/dL) (75-99) mg/dL Plasma Lactic Acid Joce 2.6 H* (0.7-2.0) mmol/L Calcium 10.7 H (8.4-10.2) mg/dL Urine Protein (Negative) Urine Ketones (Negative) Urine Blood (Negative) Urine WBC (0-5) /hpf Urine Bacteria (None) /hpf Hyaline Casts (0-2) /lpf Urine Mucus (None) /hpf 03/15/18 03/16/18 03/16/18 Range/Units 20:26 00:38 06:50 WBC (3.8-10.6) k/uL Plt Count (150-450) k/uL Neutrophils # (1.3-7.7) k/uL Chloride 109 H (98-107) mmol/L Carbon Dioxide 19 L (22-30) mmol/L Creatinine 0.45 L (0.52-1.04) mg/dL Glucose 117 H (74-99) mg/dL POC Glucose (mg/dL) 163 H (75-99) mg/dL Plasma Lactic Acid Joce (0.7-2.0) mmol/L Calcium (8.4-10.2) mg/dL Urine Protein 1+ H (Negative) Urine Ketones 2+ H (Negative) Urine Blood Small H (Negative) Urine WBC 6 H (0-5) /hpf Urine Bacteria Rare H (None) /hpf Hyaline Casts 11 H (0-2) /lpf Urine Mucus Occasional H (None) /hpf 03/16/18 Range/Units 07:29 WBC (3.8-10.6) k/uL Plt Count (150-450) k/uL Neutrophils # (1.3-7.7) k/uL Chloride (98-107) mmol/L Carbon Dioxide (22-30) mmol/L Creatinine (0.52-1.04) mg/dL Glucose (74-99) mg/dL POC Glucose (mg/dL) 127 H (75-99) mg/dL Plasma Lactic Acid Joce (0.7-2.0) mmol/L Calcium (8.4-10.2) mg/dL Urine Protein (Negative) Urine Ketones (Negative) Urine Blood (Negative) Urine WBC (0-5) /hpf Urine Bacteria (None) /hpf Hyaline Casts (0-2) /lpf Urine Mucus (None) /hpf Microbiology - Last 24 Hours (Table) 03/15/18 20:26 Urine Culture - Preliminary Urine,Clean Catch Assessment and Plan Plan: This is a 37-year-old female patient who was recently treated for E. coli ESBL urinary tract infection and completed her course of 14 days of IV antibiotic with ertapenem. Patient presents with signs of sepsis most likely secondary to a repeat urinary tract infection. Patient will be continued on ertapenem. Urine culture and blood culture are in progress. Continue supportive care. Further recommendations as patient progresses. The above dictated assessment and findings were discussed with Dr. Hansen. The impression and plan of care have been directed as dictated. Linda Cerna nurse practitioner acting as scribe for Dr. Hansen.
[2018-03-16 11:23] LABS: Glucose,Whole Blood 173 mg/dL (75-99)
--- NOTE | 2018-03-16 12:34 | P.HPIM ---
History of Present Illness H&P Date: 03/16/18 Chief Complaint: UTI This is a 37-year-old female with a known past medical history of UTI with ESBL and sepsis, DVT, CVA, lupus anticoagulant disorder, mitochondrial DNA depletion syndrome, and migraines. Patient reports completing advanced treatment a couple weeks ago for her UTI with ESBL sepsis. She had been doing fine and then this past Tuesday started to have fevers and urinary symptoms. She had a burning with urination and frequency urgency and hesitancy. Denies any hematuria. He went to see Dr. Joel on Tuesday and was started on oral antibiotic for UTI. She became nauseated and having episodes of vomiting. She was unable to tolerate food and take oral antibiotic. And therefore she came into the emergency room for further evaluation and treatment is found to have evidence of a UTI with sepsis. White count 13.3, heart rate 133, temp of her 0.2 and lactic acid 2.6. Patient was started on Invanz. Urine culture and blood cultures ordered. Infectious disease consulted. Computed tomography scan of the abdomen was unremarkable. Patient has reported improvement in her nausea and vomiting. No diarrhea. Denies any chest pain or shortness of breath. Her back pain in the right flank area. Review of Systems Please refer to HPI was unremarkable Past Medical History Past Medical History: Chest Pain / Angina, CVA/TIA, Diabetes Mellitus, Deep Vein Thrombosis (DVT), Neurologic Disorder, Syncope, Thyroid Disorder Additional Past Medical History / Comment(s): Dysautonomia-progressive neurological disorder, lupus/LUPUS ANTICOAGULANTS, 2004 CVA without residual, naa maria's disease, lymphedema Lt arm d/t DVTs , v-tach, pituitary microadenoma. "mitochondrial disease". patent foramen ovale, narcolepsy, gastropareis, IDDM type II, uti's, falls, orthostatic hypotension/syncope, migraines with hemiplegia, pernicious anemia, polycystic ovarian syndrome, neuropathy bilateral legs/fee-mild, uterine ablation August 2015/patient no longer has periods. History of Any Multi-Drug Resistant Organisms: ESBL, MRSA Date of last positivie culture/infection: 03/09/17,02/01/18 ESBL MDRO Source:: LEFT ARM, URINE ECOLI Past Surgical History: Uterine Ablation Additional Past Surgical History / Comment(s): colonscopy/egd, angie, stress test. Past Anesthesia/Blood Transfusion Reactions: No Reported Reaction Additional Past Anesthesia/Blood Transfusion Reaction / Comment(s): patient states "It takes a lot of anesthesia for my body to react". Pt has received blood in past without reaction. Past Psychological History: Bipolar, Depression Smoking Status: Never smoker Past Alcohol Use History: None Reported Additional Past Alcohol Use History / Comment(s): Patient is a lifelong nonsmoker. She denies any medical marijuana, marijuana, street drug or alcohol use. She resides with her mom. She can walk short distances and otherwise uses a wheelchair. She has a walker. She does not drive but usually gets appointments by [facility]. She has history of suicide attempt in 2015 but states depression is stable. No animal exposures. Patient is single without children. Patient denies any family members with her genetic disorder. Past Drug Use History: None Reported - Past Family History Brother(s) Family Medical History: Diabetes Mellitus, Hyperlipidemia, Hypertension Additional Family Medical History / Comment(s): Patient states she has 1 brother with no major medical problems. Father Family Medical History: Hyperlipidemia, Hypertension Additional Family Medical History / Comment(s): DAD IS 70 YEARS OLD. Patient states she does not have any contact with her father and does not know his medical history. Mother Family Medical History: Chest Pain / Angina, CVA/TIA, Hyperlipidemia, Hypertension Additional Family Medical History / Comment(s): AGE 62 HAS LUPUS, blood pressure swings high to low Medications and Allergies Home Medications Medication Instructions Recorded Confirmed Type Cyanocobalamin [Vitamin B-12] 2,000 mcg PO HS 01/25/16 03/15/18 History Ferrous Sulfate [Iron (65 MG 325 mg PO BID 07/14/16 03/15/18 History Elemental)] Rivaroxaban [Xarelto] 20 mg PO HS 03/09/17 03/15/18 History tiZANidine [Zanaflex] 8 mg PO HS 03/09/17 03/15/18 History Levothyroxine Sodium [Synthroid] 50 mcg PO DAILY 07/29/17 03/15/18 History Levothyroxine Sodium [Synthroid] 200 mcg PO DAILY 07/29/17 03/15/18 History Metoclopramide [Reglan] 10 mg PO ACHS 07/29/17 03/15/18 History Insulin Aspart [NovoLOG Flexpen] See Protocol SQ AC-TID 10/24/17 04/25/18 History Topiramate [Topamax] 75 mg PO BID 09/13/17 03/15/18 History Ondansetron [Zofran] 8 mg PO Q6HR PRN 09/25/17 03/15/18 History Trimethobenzamide HCl [Tigan] 300 mg PO TID PRN 09/25/17 03/15/18 History Metoprolol Succinate (ER) [Toprol 100 mg PO DAILY 10/24/17 03/15/18 History XL] Ranitidine HCl 150 mg PO BID 12/17/17 03/15/18 History HYDROmorphone [Dilaudid] 2 mg PO Q4HR PRN #60 tab 01/05/18 03/15/18 Rx Insulin Glargine [Lantus] 35 unit SQ HS 03/15/18 03/15/18 History Losartan [Cozaar] 50 mg PO DAILY 03/15/18 03/15/18 History Allergies Allergy/AdvReac Type Severity Reaction Status Date / Time barium sulfate Allergy Anaphylaxis Verified 03/15/18 20:01 diphtheria, pertussis, Allergy Unknown Verified 03/15/18 20:01 tetanus vacc doxepin [Doxepin] Allergy Anaphylaxis Verified 03/15/18 20:01 influenza virus vaccine, Allergy Rash/Hives Verified 03/15/18 20:01 specific [Influenza Virus Vacc,Specific] promethazine HCl Allergy Anaphylaxis Verified 03/15/18 20:01 [From Phenergan] doxycycline AdvReac Nausea & Verified 03/15/18 20:01 Vomiting & Diarrhea Pertussis Vaccines AdvReac fever/seizu Verified 03/15/18 20:01 re pseudoephedrine AdvReac Chest Pain Verified 03/15/18 20:01 pseudoephedrine HCl AdvReac Chest Pain Verified 03/15/18 20:01 [From Sudafed] sulfamethoxazole AdvReac Nausea & Verified 03/15/18 20:01 [From Bactrim] Vomiting trimethoprim [From Bactrim] AdvReac Nausea & Verified 03/15/18 20:01 Vomiting Physical Exam Vitals: Vital Signs Temp Pulse Pulse Resp BP BP Pulse Ox 03/16/18 07:30 97.9 F 80 18 129/87 97 03/16/18 02:26 96 136/86 03/16/18 00:19 98.9 F 110 H 18 151/102 96 03/15/18 23:16 98.8 F 102 H 20 130/92 96 03/15/18 22:29 99.9 F H 110 H 18 138/70 98 03/15/18 21:33 115 H 20 142/82 95 03/15/18 17:44 100.2 F H 133 H 18 136/90 97 Intake and Output 03/15/18 03/16/18 03/16/18 22:59 06:59 14:59 Intake Total 600 Balance 600 Intake: Intake, IV Titration 600 Amount Sodium Chloride 0.9% 1, 600 000 ml @ 100 mls/hr IV . Q10H JOSE Rx#:[id number] Other: Voiding Method Toilet # Voids 1 Weight 108.862 kg 108.862 kg Head normocephalic Neck supple Lungs clear to auscultation bilaterally no wheezing or crackles Heart regular rate and rhythm S1-S2, no rub or gallop Abdomen is soft suprapubic tenderness. Right flank tenderness. Extremities no edema Neuro alert and orientated to 3 Results CBC & Chem 7: 03/16/18 06:50 03/16/18 06:50 Labs: Abnormal Lab Results - Last 24 Hours (Table) 03/15/18 03/15/18 03/15/18 Range/Units 20:26 20:26 20:26 WBC 13.3 H (3.8-10.6) k/uL Plt Count 454 H (150-450) k/uL Neutrophils # 10.9 H (1.3-7.7) k/uL Chloride 108 H (98-107) mmol/L Carbon Dioxide 17 L (22-30) mmol/L Creatinine (0.52-1.04) mg/dL Glucose 173 H (74-99) mg/dL POC Glucose (mg/dL) (75-99) mg/dL Plasma Lactic Acid Joce 2.6 H* (0.7-2.0) mmol/L Calcium 10.7 H (8.4-10.2) mg/dL Urine Protein (Negative) Urine Ketones (Negative) Urine Blood (Negative) Urine WBC (0-5) /hpf Urine Bacteria (None) /hpf Hyaline Casts (0-2) /lpf Urine Mucus (None) /hpf 03/15/18 03/16/18 03/16/18 Range/Units 20:26 00:38 06:50 WBC (3.8-10.6) k/uL Plt Count (150-450) k/uL Neutrophils # (1.3-7.7) k/uL Chloride 109 H (98-107) mmol/L Carbon Dioxide 19 L (22-30) mmol/L Creatinine 0.45 L (0.52-1.04) mg/dL Glucose 117 H (74-99) mg/dL POC Glucose (mg/dL) 163 H (75-99) mg/dL Plasma Lactic Acid Joce (0.7-2.0) mmol/L Calcium (8.4-10.2) mg/dL Urine Protein 1+ H (Negative) Urine Ketones 2+ H (Negative) Urine Blood Small H (Negative) Urine WBC 6 H (0-5) /hpf Urine Bacteria Rare H (None) /hpf Hyaline Casts 11 H (0-2) /lpf Urine Mucus Occasional H (None) /hpf 03/16/18 03/16/18 Range/Units 07:29 11:21 WBC (3.8-10.6) k/uL Plt Count (150-450) k/uL Neutrophils # (1.3-7.7) k/uL Chloride (98-107) mmol/L Carbon Dioxide (22-30) mmol/L Creatinine (0.52-1.04) mg/dL Glucose (74-99) mg/dL POC Glucose (mg/dL) 127 H 173 H (75-99) mg/dL Plasma Lactic Acid Joce (0.7-2.0) mmol/L Calcium (8.4-10.2) mg/dL Urine Protein (Negative) Urine Ketones (Negative) Urine Blood (Negative) Urine WBC (0-5) /hpf Urine Bacteria (None) /hpf Hyaline Casts (0-2) /lpf Urine Mucus (None) /hpf Microbiology - Last 24 Hours (Table) 03/15/18 20:26 Urine Culture - Preliminary Urine,Clean Catch Thrombosis Risk Factor Assmnt - Choose All That Apply Each Factor Represents 1 point: Obesity (BMI >25), Sepsis (< 1month) Other Risk Factors: Yes Each Risk Factor Represents 3 Points: Family history of DVT/PE, History of DVT/ PE Other congenital or acquired thrombophilia - If yes, enter type in comment: No Thrombosis Risk Factor Assessment Total Risk Factor Score: 8 Thrombosis Risk Factor Assessment Level: High Risk Assessment and Plan Assessment: 1. UTI with sepsis present on admission with possible pyelonephritis: Not able to tolerate outpatient antibiotics due to vomiting. Patient has been placed on Invanz. Infectious disease consulted. Urine culture and blood culture pending. Continue with IV fluids. 2. Recent UTI with E. coli ESBL had completed treatment with Invanz 2 weeks ago. 3. History of lupus anticoagulant disorder on anticoagulations with the Xarelto 4. History of mitochondrial DNA depletion syndrome 5. Nausea and vomiting: Improved. Likely related to patient's antibiotic and current infection. 6. History of CVA 7. History of migraines GI prophylaxis Pepcid and DVT prophylaxis Xarelto Time with Patient: Greater than 30 (Greater than 50% of the total time spent in counseling and coordination of care.I performed an examination of the patient and discussed their management with the physician Oyster Shipper. I have reviewed the Physician Oyster Shipper's notes and agree with the documented findings and plan of care)
[2018-03-16] MEDS: INSULIN ASPART 100 UNIT/ML 1 ML 10 ML VIAL SQ SCH ×3 (12:51→21:07)
[2018-03-16 16:56] LABS: Glucose,Whole Blood 123 mg/dL (75-99)
[2018-03-16 18:31] LABS: Hemoglobin A1C 7.4 % (4.0-6.0)
[2018-03-16 20:40] LABS: Glucose,Whole Blood 149 mg/dL (75-99)
[2018-03-16] MEDS: CYANOCOBALAMIN 500 MCG TAB PO SCH (21:05)
[2018-03-16] MEDS: RIVAROXABAN 20 MG TAB PO SCH (21:05)
[2018-03-16] MEDS: tiZANidine 4 MG TAB PO SCH (21:05)
[2018-03-16] MEDS: INSULIN DETEMIR 100 UNIT/ML 10 ML VIAL SQ SCH (21:06)
[2018-03-16] MEDS: ERTAPENEM 1 GM in SODIUM CHLORIDE 0.9% 50 ML IVPB SCH (21:06)
[2018-03-16] MEDS: TRIMETHOBENZAMIDE 300 MG CAP PO PRN (22:58)
--- NOTE | 2018-03-16 23:45 | P.CON ---
Consult Note - . Consult date: 03/16/18 Assessment/Plan:: 37-year-old female past medical history of mitochondrial syndrome which is resulting in progressive debility. 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 She also has a history of hemiplegic migraines. Patient had a recent admission on February 02 which time she was treated for E. coli ESBL UTI with ertapenem. She was discharged home on a 14 day course in the midline in the right arm. She completed her course of antibiotics and the midline was removed. She had [facility] and [facility] infusion in place. She did have a follow-up appointment with Dr. Hansen at the beginning of February. Her urinalysis on February 23 was clear with nitrate and leukoesterase negative and patient was symptom-free at that time. Patient states that on Tuesday she started having dysuria with pain and burning with urination as well as right lower abdominal pain and right back pain. This progressed and she ended up seeing her primary care physician yesterday and was diagnosed with UTI but did not start taking antibiotics. Her condition progressively worsened and she developed vomiting and fever of 101. She then came into [facility] emergency center where her temperature was 100.2, pulse 133, white count of 13.3. Creatinine was 0.45. Initial lactic acid was 2.6 and repeat was 1.7. Urinalysis was brown, clear, routine 1+, ketones 2+, blood small, nitrate and leukoesterase negative, wbc's 6, bacteria rare. HCG was not detected. Urine culture in progress and blood culture status received. CAT scan of the abdomen and pelvis with contrast was negative for any acute findings. She was started on her dependent and admitted to the [facility] floor. She is essentially wheelchair bound and can walk only short distances. She denies having any falls at home. She does complain of headache. Please see the consult note is dictated by nurse practitioner Mrs. Linda Cerna. This 37 show woman is feeling quite poorly. She is quite distraught in that her insurance company will no longer paying for Zofran at home. She's now developed increasing abdominal pain and flank pain and fever and leukocytosis. Since admission and initiation of further pain medications and Zofran she is starting to feel slightly better but certainly does not feel well. If this time cultures are in process and antibiotic therapy has been initiated with ertapenem based on her prior cultures. Continue ongoing supportive care and hydration. Hopefully with hydration and anxiolytics and antiemetics she will start to improve. With the bigger challenges will be dealing with her antiemetics the time of discharge, so that she'll be able to maintain herself in the outpatient setting. I agree with evaluation, assessment and plan is dictated by nurse practitioner Mrs. Linda Cerna.
[2018-03-17] MEDS: LEVOTHYROXINE 100 MCG TAB PO SCH (05:36)
[2018-03-17] MEDS: LEVOTHYROXINE 50 MCG TAB PO SCH (05:36)
[2018-03-17 07:09] LABS: Glucose,Whole Blood 124 mg/dL (75-99)
[2018-03-17] MEDS: INSULIN ASPART 100 UNIT/ML 1 ML 10 ML VIAL SQ SCH ×4 (07:31→20:20)
[2018-03-17] MEDS: SODIUM CHLORIDE 0.9% 1,000 ML IV SCH ×3 (07:31→11:39)
[2018-03-17] MEDS: TOPIRAMATE 25 MG TAB PO SCH ×2 (07:41→20:22)
[2018-03-17] MEDS: LOSARTAN 50 MG TAB PO SCH (07:41)
[2018-03-17] MEDS: FERROUS SULFATE 325 MG TAB PO SCH ×2 (07:41→20:20)
[2018-03-17] MEDS: METOPROLOL SUCCINATE (ER) 100 MG TAB.ER.24H PO SCH (07:41)
[2018-03-17] MEDS: METOCLOPRAMIDE 10 MG TAB PO SCH ×4 (07:41→20:21)
[2018-03-17] MEDS: FAMOTIDINE 20 MG TAB PO SCH (07:41)
[2018-03-17] MEDS: HYDROmorphone 2 MG TAB PO PRN ×2 (07:48→22:04)
[2018-03-17 08:14] LABS: Basophils % (A) 0 %; Eosinophils # (A) 0.2 k/uL (0-0.7); Eosinophils % (A) 2 %; HCT 38.5 % (34.0-46.0); HGB 12.7 gm/dL (11.4-16.0); Lymphocytes # (A) 1.9 k/uL (1.0-4.8); Lymphocytes % (A) 19 %; MCH 28.5 pg (25.0-35.0); MCHC 33.1 g/dL (31.0-37.0); Mean Platelet Volume 6.7; Monocytes # (A) 0.5 k/uL (0-1.0); Monocytes % (A) 5 %; Neutrophils % (A) 71 %; Platelet Count 363 k/uL (150-450); RBC 4.47 m/uL (3.80-5.40); RDW 13.9 % (11.5-15.5); WBC 9.8 k/uL (3.8-10.6)
[2018-03-17 08:23] LABS: ALT 24 U/L (9-52); AST 22 U/L (14-36); Albumin 3.8 g/dL (3.5-5.0); Alkaline Phosphatase 83 U/L (38-126); Anion Gap 17 mmol/L; Blood Urea Nitrogen 8 mg/dL (7-17); Calcium 9.4 mg/dL (8.4-10.2); Carbon Dioxide 18 mmol/L (22-30); Chloride 110 mmol/L (98-107); Glucose 147 mg/dL (74-99); Potassium 3.8 mmol/L (3.5-5.1); Sodium 145 mmol/L (137-145); Total Bilirubin 0.3 mg/dL (0.2-1.3); Total Protein 6.3 g/dL (6.3-8.2)
[2018-03-17 11:13] LABS: Glucose,Whole Blood 144 mg/dL (75-99)
[2018-03-17] MEDS: ONDANSETRON 4 MG/2 ML VIAL IVP PRN ×2 (11:29→18:26)
--- NOTE | 2018-03-17 11:41 | P.PN ---
Subjective Progress Note Date: 03/17/18 This is a 37-year-old female with a known past medical history of UTI with ESBL and sepsis, DVT, CVA, lupus anticoagulant disorder, mitochondrial DNA depletion syndrome, and migraines. Patient reports completing advanced treatment a couple weeks ago for her UTI with ESBL sepsis. She had been doing fine and then this past Tuesday started to have fevers and urinary symptoms. She had a burning with urination and frequency urgency and hesitancy. Denies any hematuria. He went to see Dr. Joel on Tuesday and was started on oral antibiotic for UTI. She became nauseated and having episodes of vomiting. She was unable to tolerate food and take oral antibiotic. And therefore she came into the emergency room for further evaluation and treatment is found to have evidence of a UTI with sepsis. White count 13.3, heart rate 133, temp of her 0.2 and lactic acid 2.6. Patient was started on Invanz. Urine culture and blood cultures ordered. Infectious disease consulted. Computed tomography scan of the abdomen was unremarkable. Patient has reported improvement in her nausea and vomiting. No diarrhea. Denies any chest pain or shortness of breath. Her back pain in the right flank area. 03/17/2018 patient remains afebrile. White count has normalized. Blood cultures are negative. Urine culture shows skin contamination. Patient is reporting improvement in her right flank pain. As well as improvement in her urinary symptoms. She did have a headache earlier that include improved with the Dilaudid. Patient is still having some nausea and poor oral intake. Glucerna shakes will be added. Patient reports having bowel movements. Objective - Vital Signs Vital signs: Vital Signs Temp 98.1 F 03/17/18 07:18 Pulse 70 03/17/18 07:18 Resp 18 03/17/18 07:18 BP 109/67 03/17/18 07:18 Pulse Ox 97 03/17/18 07:18 Intake & Output 03/16/18 03/17/18 03/17/18 18:59 06:59 18:59 Other: Voiding Method Toilet Toilet Toilet # Voids 4 1 # Bowel Movements 1 - Exam Head normocephalic Neck supple Lungs clear to auscultation bilaterally no wheezing or crackles Heart regular rate and rhythm S1-S2, no rub or gallop Abdomen is soft nondistended positive bowel sounds no hepatosplenomegaly. Mild suprapubic tenderness and right flank pain Extremities no edema Neuro alert and orientated to 3 - Labs CBC & Chem 7: 03/17/18 07:57 03/17/18 07:57 Labs: Abnormal Lab Results - Last 24 Hours (Table) 03/16/18 03/16/18 03/16/18 Range/Units 06:50 16:55 20:35 Chloride (98-107) mmol/L Carbon Dioxide (22-30) mmol/L Creatinine (0.52-1.04) mg/dL Glucose (74-99) mg/dL POC Glucose (mg/dL) 123 H 149 H (75-99) mg/dL Hemoglobin A1c 7.4 H (4.0-6.0) % 03/17/18 03/17/18 03/17/18 Range/Units 07:05 07:57 11:12 Chloride 110 H (98-107) mmol/L Carbon Dioxide 18 L (22-30) mmol/L Creatinine 0.51 L (0.52-1.04) mg/dL Glucose 147 H (74-99) mg/dL POC Glucose (mg/dL) 124 H 144 H (75-99) mg/dL Hemoglobin A1c (4.0-6.0) % Microbiology - Last 24 Hours (Table) 03/15/18 20:26 Blood Culture - Preliminary Blood No Growth after 24 hours 03/15/18 20:26 Urine Culture - Final Urine,Clean Catch Assessment and Plan Assessment: 1. UTI with sepsis present on admission with possible pyelonephritis: Not able to tolerate outpatient antibiotics due to vomiting. Patient has been placed on Invanz. Patient seen by infectious disease. Urine culture is contaminated. Blood culture negative. Decrease IV fluids to 50 2. Recent UTI with E. coli ESBL had completed treatment with Invanz 2 weeks ago. 3. History of lupus anticoagulant disorder on anticoagulations with the Xarelto 4. History of mitochondrial DNA depletion syndrome 5. Nausea and vomiting: No further episodes of vomiting. Still having some nausea. Discontinue Pepcid and add IV Protonix. 6. History of CVA 7. History of migraines 8. History of gastroparesis Poor oral intake will add Glucerna shakes GI prophylaxis Pepcid and DVT prophylaxis Xarelto I performed an examination of the patient and discussed their management with the physician Store Team Leader. I have reviewed the Physician Store Team Leader's notes and agree with the documented findings and plan of care
[2018-03-17 16:39] LABS: Glucose,Whole Blood 114 mg/dL (75-99)
[2018-03-17 20:13] LABS: Glucose,Whole Blood 150 mg/dL (75-99)
[2018-03-17] MEDS: CYANOCOBALAMIN 500 MCG TAB PO SCH (20:20)
[2018-03-17] MEDS: ERTAPENEM 1 GM in SODIUM CHLORIDE 0.9% 50 ML IVPB SCH (20:20)
[2018-03-17] MEDS: PANTOPRAZOLE 40 MG/10 ML VIAL IVP SCH (20:21)
[2018-03-17] MEDS: INSULIN DETEMIR 100 UNIT/ML 10 ML VIAL SQ SCH (20:21)
[2018-03-17] MEDS: RIVAROXABAN 20 MG TAB PO SCH (20:21)
[2018-03-17] MEDS: tiZANidine 4 MG TAB PO SCH (20:21)
[2018-03-17 20:47] VITALS: RESP 16
[2018-03-17] MEDS: TRIMETHOBENZAMIDE 300 MG CAP PO PRN (23:42)
[2018-03-18] MEDS: LEVOTHYROXINE 100 MCG TAB PO SCH (06:19)
[2018-03-18] MEDS: LEVOTHYROXINE 50 MCG TAB PO SCH (06:19)
[2018-03-18 07:22] LABS: Glucose,Whole Blood 116 mg/dL (75-99)
[2018-03-18 07:50] LABS: Basophils % (A) 0 %; Eosinophils # (A) 0.3 k/uL (0-0.7); Eosinophils % (A) 4 %; HGB 11.5 gm/dL (11.4-16.0); Lymphocytes % (A) 28 %; MCH 27.5 pg (25.0-35.0); MCHC 31.9 g/dL (31.0-37.0); MCV 86.2 fL (80.0-100.0); Mean Platelet Volume 6.7; Monocytes # (A) 0.4 k/uL (0-1.0); Monocytes % (A) 6 %; Neutrophils # (A) 4.3 k/uL (1.3-7.7); Neutrophils % (A) 61 %; Platelet Count 297 k/uL (150-450); RBC 4.18 m/uL (3.80-5.40); RDW 13.8 % (11.5-15.5); WBC 7.1 k/uL (3.8-10.6)
[2018-03-18] MEDS: INSULIN ASPART 100 UNIT/ML 1 ML 10 ML VIAL SQ SCH ×2 (07:54→14:21)
[2018-03-18] MEDS: METOPROLOL SUCCINATE (ER) 100 MG TAB.ER.24H PO SCH (07:57)
[2018-03-18] MEDS: PANTOPRAZOLE 40 MG/10 ML VIAL IVP SCH (07:58)
[2018-03-18] MEDS: FERROUS SULFATE 325 MG TAB PO SCH (07:58)
[2018-03-18] MEDS: TOPIRAMATE 25 MG TAB PO SCH (07:58)
[2018-03-18] MEDS: LOSARTAN 50 MG TAB PO SCH (07:58)
[2018-03-18] MEDS: METOCLOPRAMIDE 10 MG TAB PO SCH ×2 (07:58→13:36)
[2018-03-18 08:14] LABS: ALT 26 U/L (9-52); AST 22 U/L (14-36); Albumin 3.4 g/dL (3.5-5.0); Alkaline Phosphatase 82 U/L (38-126); Anion Gap 15 mmol/L; Blood Urea Nitrogen 10 mg/dL (7-17); Calcium 9.1 mg/dL (8.4-10.2); Carbon Dioxide 18 mmol/L (22-30); Chloride 110 mmol/L (98-107); Glucose 108 mg/dL (74-99); Potassium 3.7 mmol/L (3.5-5.1); Sodium 143 mmol/L (137-145); Total Bilirubin 0.2 mg/dL (0.2-1.3); Total Protein 5.7 g/dL (6.3-8.2)
[2018-03-18 09:16] VITALS: BP 119/68; PULSE 71; TEMP 98.1
[2018-03-18] MEDS: ONDANSETRON 4 MG/2 ML VIAL IVP PRN (09:37)
[2018-03-18 12:05] LABS: Glucose,Whole Blood 135 mg/dL (75-99)
--- NOTE | 2018-03-18 13:48 | P.DS ---
Providers Date of admission: 03/15/18 23:08 Expected date of discharge: 03/18/18 Attending physician: Maryellen Joel Consults: 03/15/18 23:10 Consult Physician Urgent Consulting Provider: Jerson Hansen Consult Reason/Comments: Sepsis; Concern for bacteremia; UTI Do you want consulting provider notified?: Yes Primary care physician: Maryellen Marycruz [facility] Course: This is a 37-year-old female with past medical history significant for ESBL UTI , history of lupus anticoagulant with prior CVA, mitochondrial DNA depletion, and chronic migraine. Patient presented to the hospital with nonspecific complain about flank pain and nausea. Nose complains are chronic for her. She was evaluated in the emergency room and initial urinalysis was slightly positive. She was started on Invanz but her urine and blood culture returned negative. She recently finished 4 weeks of antibiotic with IV and advance as an outpatient. Her white count was normal. No documented fever since admission. Patient was reassured. She will be discharged home in a stable condition. Patient's complaint of chronic headache that ''only'' respond to IV Dilaudid Patient Condition at Discharge: Serious Plan - Discharge Summary New Discharge Prescriptions: No Action RX: Cyanocobalamin [Vitamin B-12] 2,000 mcg PO HS RX: Ferrous Sulfate [Iron (65 MG Elemental)] 325 mg PO BID RX: tiZANidine [Zanaflex] 8 mg PO HS RX: Rivaroxaban [Xarelto] 20 mg PO HS RX: Metoclopramide [Reglan] 10 mg PO ACHS RX: Levothyroxine Sodium [Synthroid] 200 mcg PO DAILY RX: Levothyroxine Sodium [Synthroid] 50 mcg PO DAILY RX: Topiramate [Topamax] 75 mg PO BID RX: Insulin Aspart [NovoLOG Flexpen] See Protocol SQ AC-TID RX: Trimethobenzamide HCl [Tigan] 300 mg PO TID PRN PRN Reason: Nausea RX: Ondansetron [Zofran] 8 mg PO Q6HR PRN PRN Reason: Nausea And Vomiting RX: Metoprolol Succinate (ER) [Toprol XL] 100 mg PO DAILY RX: Ranitidine HCl 150 mg PO BID RX: HYDROmorphone [Dilaudid] 2 mg PO Q4HR PRN #60 tab PRN Reason: Moderate Pain Losartan [Cozaar] 50 mg PO DAILY RX: Insulin Glargine [Lantus] 35 unit SQ HS Discharge Medication List RX: Cyanocobalamin [Vitamin B-12] 2,000 mcg PO HS 01/25/16 [History] RX: Ferrous Sulfate [Iron (65 MG Elemental)] 325 mg PO BID 07/14/16 [History] RX: Rivaroxaban [Xarelto] 20 mg PO HS 03/09/17 [History] RX: tiZANidine [Zanaflex] 8 mg PO HS 03/09/17 [History] RX: Levothyroxine Sodium [Synthroid] 50 mcg PO DAILY 07/29/17 [History] RX: Levothyroxine Sodium [Synthroid] 200 mcg PO DAILY 07/29/17 [History] RX: Metoclopramide [Reglan] 10 mg PO ACHS 07/29/17 [History] RX: Insulin Aspart [NovoLOG Flexpen] See Protocol SQ AC-TID 09/13/17 [History] RX: Topiramate [Topamax] 75 mg PO BID 09/13/17 [History] RX: Ondansetron [Zofran] 8 mg PO Q6HR PRN 09/25/17 [History] RX: Trimethobenzamide HCl [Tigan] 300 mg PO TID PRN 09/25/17 [History] RX: Metoprolol Succinate (ER) [Toprol XL] 100 mg PO DAILY 10/24/17 [History] RX: Ranitidine HCl 150 mg PO BID 12/17/17 [History] RX: HYDROmorphone [Dilaudid] 2 mg PO Q4HR PRN #60 tab 01/05/18 [Rx] Losartan [Cozaar] 50 mg PO DAILY 03/15/18 [History] RX: Insulin Glargine [Lantus] 35 unit SQ HS 03/15/18 [History] Follow up Appointment(s)/Referral(s): Maryellen Joel MD [Primary Care Provider] - 1-2 days
== END 2018-03-18 16:03 | disposition home or self-care (01) | DRG 872 ==
LOC: EC 17:28 → 5MS5E 23:08
PROVIDERS: ADMIT Internal Medicine; ATTEND Internal Medicine
DX: A41.9 Sepsis, unspecified organism (principal); D68.62 Lupus anticoagulant syndrome; N12 Tubulo-interstitial nephritis, not specified as acute or chronic; Q21.1 Atrial septal defect; G43.409 Hemiplegic migraine, not intractable, without status migrainosus; G47.419 Narcolepsy without cataplexy; E11.42 Type 2 diabetes mellitus with diabetic polyneuropathy; R11.2 Nausea with vomiting, unspecified; G90.1 Familial dysautonomia [Riley-Day]; E66.9 Obesity, unspecified; F31.9 Bipolar disorder, unspecified; E28.2 Polycystic ovarian syndrome; E06.3 Autoimmune thyroiditis; Z79.01 Long term (current) use of anticoagulants; Z86.73 Personal history of transient ischemic attack (TIA), and cerebral infarction without residual deficits; Z91.81 History of falling; Z86.39 Personal history of other endocrine, nutritional and metabolic disease; Z99.3 Dependence on wheelchair; Z83.3 Family history of diabetes mellitus; Z82.49 Family history of ischemic heart disease and other diseases of the circulatory system; Z83.49 Family history of other endocrine, nutritional and metabolic diseases; Z91.5 Personal history of self-harm; Z82.3 Family history of stroke; Z79.4 Long term (current) use of insulin; Z79.899 Other long term (current) drug therapy; Z87.440 Personal history of urinary (tract) infections; Z79.891 Long term (current) use of opiate analgesic; Z88.1 Allergy status to other antibiotic agents; Z88.2 Allergy status to sulfonamides; Z88.7 Allergy status to serum and vaccine; Z88.8 Allergy status to other drugs, medicaments and biological substances; Z68.39 Body mass index [BMI] 39.0-39.9, adult
CPT/HCPCS: 36415; 74177; 80048; 80053; 81001; 81025; 83036; 83605; 85025; 87040; 87086; 99284

== ENCOUNTER 2018-03-21 13:45 | Inpatient (IN) | payer MEDICARE, OTHER ==
[2018-03-21] MEDS ORDERED: SODIUM CHLORIDE 0.9% 1,000 ML IV STA (14:34)
[2018-03-21 15:13] LABS: Amorphous Sediment,Urine Occasional /hpf; Appearance,Urine Cloudy (Clear); Bacteria,Urine Few /hpf; Bilirubin,Urine Negative (Negative); Blood,Urine Negative (Negative); Color,Urine Brown; Glucose,Urine (UA) Negative (Negative); Hyaline Casts,Urine 30 /lpf (0-2); Ketones,Urine Negative (Negative); Leukocyte Esterase,Urine Moderate (Negative); Mucus,Urine Many /hpf; Nitrite,Urine Negative (Negative); Protein,Urine 1+ (Negative); RBC,Urine 1 /hpf (0-5); Specific Gravity,Urine 1.022 (1.001-1.035); Squamous Epithelial Cell,Urine 8 /hpf (0-4); Urobilinogen,Urine <2.0 mg/dL (<2.0); WBC,Urine 44 /hpf (0-5)
[2018-03-21 15:17] LABS: ALT 28 U/L (9-52); AST 42 U/L (14-36); Alkaline Phosphatase 120 U/L (38-126); Amylase 46 U/L (30-110); Anion Gap 21 mmol/L; Blood Urea Nitrogen 9 mg/dL (7-17); Calcium 10.5 mg/dL (8.4-10.2); Carbon Dioxide 15 mmol/L (22-30); Chloride 109 mmol/L (98-107); Glucose 129 mg/dL (74-99); Lipase 90 U/L (23-300); Potassium 4.3 mmol/L (3.5-5.1); Sodium 145 mmol/L (137-145); Total Bilirubin 0.6 mg/dL (0.2-1.3)
[2018-03-21 15:18] LABS: Basophils % (A) 0 %; Eosinophils # (A) 0.2 k/uL (0-0.7); Eosinophils % (A) 1 %; HCT 41.7 % (34.0-46.0); HGB 13.9 gm/dL (11.4-16.0); Lymphocytes # (A) 2.1 k/uL (1.0-4.8); Lymphocytes % (A) 14 %; MCH 27.7 pg (25.0-35.0); MCHC 33.2 g/dL (31.0-37.0); MCV 83.3 fL (80.0-100.0); Mean Platelet Volume 7.2; Monocytes # (A) 0.7 k/uL (0-1.0); Monocytes % (A) 5 %; Neutrophils # (A) 12.5 k/uL (1.3-7.7); Neutrophils % (A) 80 %; Platelet Count 467 k/uL (150-450); RBC 5.01 m/uL (3.80-5.40); RDW 14.1 % (11.5-15.5); WBC 15.6 k/uL (3.8-10.6)
[2018-03-21] MEDS ORDERED: SODIUM CHLORIDE 0.9% 1,000 ML IV ONE (15:46)
--- NOTE | 2018-03-21 15:46 | ED ---
Abdominal Pain HPI - General Chief Complaint: Abdominal Pain Stated Complaint: Abd.pain Time Seen by Provider: 03/21/18 14:34 Source: patient, RN notes reviewed Mode of arrival: wheelchair Limitations: no limitations - History of Present Illness Initial Comments: This is a 37-year-old female presents emergency Department chief complaint of dysuria, right flank pain. Patient states she is just in the hospital released on Tuesday for some her symptoms. They told her that her urine culture came back clean. She states prior to that she was on IV antibiotics through a PICC line for one month for UTI sepsis. Patient's had recurrent recheck infections. Patient states she feels like she has a fever no reported fever. Patient has some nausea no vomiting diarrhea constipation. Patient denies any chest pain or shortness breath. - Related Data Home Medications Medication Instructions Recorded Confirmed Cyanocobalamin [Vitamin B-12] 2,000 mcg PO HS 01/25/16 03/21/18 Ferrous Sulfate [Iron (65 MG 325 mg PO BID 07/14/16 03/21/18 Elemental)] Rivaroxaban [Xarelto] 20 mg PO HS 03/09/17 03/21/18 tiZANidine [Zanaflex] 8 mg PO HS 03/09/17 03/21/18 Levothyroxine Sodium [Synthroid] 50 mcg PO DAILY 07/29/17 03/21/18 Levothyroxine Sodium [Synthroid] 200 mcg PO DAILY 07/29/17 03/21/18 Metoclopramide [Reglan] 10 mg PO ACHS 07/29/17 03/21/18 Insulin Aspart [NovoLOG Flexpen] See Protocol SQ AC-TID 09/13/17 03/21/18 Topiramate [Topamax] 75 mg PO BID 09/13/17 03/21/18 Ondansetron [Zofran] 8 mg PO Q6HR PRN 09/25/17 03/21/18 Trimethobenzamide HCl [Tigan] 300 mg PO TID PRN 09/25/17 03/21/18 Metoprolol Succinate (ER) [Toprol 100 mg PO DAILY 10/24/17 03/21/18 XL] Ranitidine HCl 150 mg PO BID 12/17/17 03/21/18 Insulin Glargine [Lantus] 35 unit SQ HS 03/15/18 03/21/18 Losartan [Cozaar] 50 mg PO DAILY 03/15/18 03/21/18 Previous Rx's Medication Instructions Recorded HYDROmorphone [Dilaudid] 2 mg PO Q4HR PRN #60 tab 01/05/18 Allergies Allergy/AdvReac Type Severity Reaction Status Date / Time barium sulfate Allergy Anaphylaxis Verified 03/21/18 15:18 diphtheria, pertussis, Allergy Unknown Verified 03/21/18 15:18 tetanus vacc doxepin [Doxepin] Allergy Anaphylaxis Verified 03/21/18 15:18 influenza virus vaccine, Allergy Rash/Hives Verified 03/21/18 15:18 specific [Influenza Virus Vacc,Specific] promethazine HCl Allergy Anaphylaxis Verified 03/21/18 15:18 [From Phenergan] doxycycline AdvReac Nausea & Verified 03/21/18 15:18 Vomiting & Diarrhea Pertussis Vaccines AdvReac fever/seizu Verified 03/21/18 15:18 re pseudoephedrine AdvReac Chest Pain Verified 03/21/18 15:18 pseudoephedrine HCl AdvReac Chest Pain Verified 03/21/18 15:18 [From Sudafed] sulfamethoxazole AdvReac Nausea & Verified 03/21/18 15:18 [From Bactrim] Vomiting trimethoprim [From Bactrim] AdvReac Nausea & Verified 03/21/18 15:18 Vomiting Review of Systems ROS Statement: Those systems with pertinent positive or pertinent negative responses have been documented in the HPI. ROS Other: All systems not noted in ROS Statement are negative. Past Medical History Past Medical History: Chest Pain / Angina, CVA/TIA, Diabetes Mellitus, Deep Vein Thrombosis (DVT), Neurologic Disorder, Syncope, Thyroid Disorder Additional Past Medical History / Comment(s): Dysautonomia-progressive neurological disorder, lupus/LUPUS ANTICOAGULANTS, 2004 CVA without residual, ana maria's disease, lymphedema Lt arm d/t DVTs , v-tach, pituitary microadenoma. "mitochondrial disease". patent foramen ovale, narcolepsy, gastropareis, IDDM type II, uti's, falls, orthostatic hypotension/syncope, migraines with hemiplegia, pernicious anemia, polycystic ovarian syndrome, neuropathy bilateral legs/fee-mild, uterine ablation August 2015/patient no longer has periods. History of Any Multi-Drug Resistant Organisms: ESBL, MRSA Date of last positivie culture/infection: 03/09/17,02/01/18 ESBL MDRO Source:: LEFT ARM, URINE ECOLI Past Surgical History: Uterine Ablation Additional Past Surgical History / Comment(s): colonscopy/egd, angie, stress test. Past Anesthesia/Blood Transfusion Reactions: No Reported Reaction Additional Past Anesthesia/Blood Transfusion Reaction / Comment(s): patient states "It takes a lot of anesthesia for my body to react". Pt has received blood in past without reaction. Past Psychological History: Bipolar, Depression Smoking Status: Never smoker Past Alcohol Use History: None Reported Past Drug Use History: None Reported - Past Family History Brother(s) Family Medical History: Diabetes Mellitus, Hyperlipidemia, Hypertension Additional Family Medical History / Comment(s): Patient states she has 1 brother with no major medical problems. Father Family Medical History: Hyperlipidemia, Hypertension Additional Family Medical History / Comment(s): DAD IS 70 YEARS OLD. Patient states she does not have any contact with her father and does not know his medical history. Mother Family Medical History: Chest Pain / Angina, CVA/TIA, Hyperlipidemia, Hypertension Additional Family Medical History / Comment(s): AGE 62 HAS LUPUS, blood pressure swings high to low General Exam Limitations: no limitations General appearance: alert, in no apparent distress Head exam: Present: atraumatic, normocephalic, normal inspection Eye exam: Present: normal appearance, PERRL, EOMI. Absent: scleral icterus, conjunctival injection, periorbital swelling Respiratory exam: Present: normal lung sounds bilaterally. Absent: respiratory distress, wheezes, rales, rhonchi, stridor Cardiovascular Exam: Present: normal rhythm, tachycardia, normal heart sounds. Absent: systolic murmur, diastolic murmur, rubs, gallop, clicks GI/Abdominal exam: Present: soft, normal bowel sounds. Absent: distended, tenderness, guarding, rebound, rigid Back exam: Present: CVA tenderness (R). Absent: CVA tenderness (L) Skin exam: Present: warm, dry, intact, normal color. Absent: rash Course Vital Signs 03/21/18 03/21/18 13:59 15:54 Temperature 98.8 F Pulse Rate 119 H 116 H Respiratory 18 18 Rate Blood Pressure 200/106 140/101 O2 Sat by Pulse 98 95 Oximetry Medical Decision Making - Medical Decision Making 37-year-old female presented for possible UTI. Patient has right flank pain. Patient admitted for UTI sepsis. Patient has recurrent urinary tract infections. Patient was placed on eropenem based on prior urine culture. - Lab Data Result diagrams: 03/21/18 14:56 03/21/18 14:56 Lab Results 03/21/18 03/21/18 03/21/18 Range/Units 14:56 14:56 14:56 WBC 15.6 H (3.8-10.6) k/uL RBC 5.01 (3.80-5.40) m/uL Hgb 13.9 (11.4-16.0) gm/dL Hct 41.7 (34.0-46.0) % MCV 83.3 (80.0-100.0) fL MCH 27.7 (25.0-35.0) pg MCHC 33.2 (31.0-37.0) g/dL RDW 14.1 (11.5-15.5) % Plt Count 467 H (150-450) k/uL Neutrophils % 80 % Lymphocytes % 14 % Monocytes % 5 % Eosinophils % 1 % Basophils % 0 % Neutrophils # 12.5 H (1.3-7.7) k/uL Lymphocytes # 2.1 (1.0-4.8) k/uL Monocytes # 0.7 (0-1.0) k/uL Eosinophils # 0.2 (0-0.7) k/uL Basophils # 0.0 (0-0.2) k/uL Sodium 145 (137-145) mmol/L Potassium 4.3 (3.5-5.1) mmol/L Chloride 109 H (98-107) mmol/L Carbon Dioxide 15 L (22-30) mmol/L Anion Gap 21 mmol/L BUN 9 (7-17) mg/dL Creatinine 0.60 (0.52-1.04) mg/dL Est GFR (CKD-EPI)AfAm >90 (>60 ml/min/1.73 sqM) Est GFR (CKD-EPI)NonAf >90 (>60 ml/min/1.73 sqM) Glucose 129 H (74-99) mg/dL Plasma Lactic Acid Joce (0.7-2.0) mmol/L Calcium 10.5 H (8.4-10.2) mg/dL Total Bilirubin 0.6 (0.2-1.3) mg/dL AST 42 H (14-36) U/L ALT 28 (9-52) U/L Alkaline Phosphatase 120 (38-126) U/L Total Protein 8.0 (6.3-8.2) g/dL Albumin 5.0 (3.5-5.0) g/dL Amylase 46 (30-110) U/L Lipase 90 (23-300) U/L Urine Color Urine Appearance (Clear) Urine pH (5.0-8.0) Ur Specific [place] (1.001-1.035) Urine Protein (Negative) Urine Glucose (UA) (Negative) Urine Ketones (Negative) Urine Blood (Negative) Urine Nitrite (Negative) Urine Bilirubin (Negative) Urine Urobilinogen (<2.0) mg/dL Ur Leukocyte Esterase (Negative) Urine RBC (0-5) /hpf Urine WBC (0-5) /hpf Ur Squamous Epith Cells (0-4) /hpf Amorphous Sediment (None) /hpf Urine Bacteria (None) /hpf Hyaline Casts (0-2) /lpf Urine Mucus (None) /hpf Urine HCG, Qual Not Detected (Not Detectd) 03/21/18 03/21/18 Range/Units 14:56 14:56 WBC (3.8-10.6) k/uL RBC (3.80-5.40) m/uL Hgb (11.4-16.0) gm/dL Hct (34.0-46.0) % MCV (80.0-100.0) fL MCH (25.0-35.0) pg MCHC (31.0-37.0) g/dL RDW (11.5-15.5) % Plt Count (150-450) k/uL Neutrophils % % Lymphocytes % % Monocytes % % Eosinophils % % Basophils % % Neutrophils # (1.3-7.7) k/uL Lymphocytes # (1.0-4.8) k/uL Monocytes # (0-1.0) k/uL Eosinophils # (0-0.7) k/uL Basophils # (0-0.2) k/uL Sodium (137-145) mmol/L Potassium (3.5-5.1) mmol/L Chloride (98-107) mmol/L Carbon Dioxide (22-30) mmol/L Anion Gap mmol/L BUN (7-17) mg/dL Creatinine (0.52-1.04) mg/dL Est GFR (CKD-EPI)AfAm (>60 ml/min/1.73 sqM) Est GFR (CKD-EPI)NonAf (>60 ml/min/1.73 sqM) Glucose (74-99) mg/dL Plasma Lactic Acid Joce 3.4 H* (0.7-2.0) mmol/L Calcium (8.4-10.2) mg/dL Total Bilirubin (0.2-1.3) mg/dL AST (14-36) U/L ALT (9-52) U/L Alkaline Phosphatase (38-126) U/L Total Protein (6.3-8.2) g/dL Albumin (3.5-5.0) g/dL Amylase (30-110) U/L Lipase (23-300) U/L Urine Color Brown Urine Appearance Cloudy H (Clear) Urine pH 5.0 (5.0-8.0) Ur Specific [place] 1.022 (1.001-1.035) Urine Protein 1+ H (Negative) Urine Glucose (UA) Negative (Negative) Urine Ketones Negative (Negative) Urine Blood Negative (Negative) Urine Nitrite Negative (Negative) Urine Bilirubin Negative (Negative) Urine Urobilinogen <2.0 (<2.0) mg/dL Ur Leukocyte Esterase Moderate H (Negative) Urine RBC 1 (0-5) /hpf Urine WBC 44 H (0-5) /hpf Ur Squamous Epith Cells 8 H (0-4) /hpf Amorphous Sediment Occasional H (None) /hpf Urine Bacteria Few H (None) /hpf Hyaline Casts 30 H (0-2) /lpf Urine Mucus Many H (None) /hpf Urine HCG, Qual (Not Detectd) Disposition Clinical Impression: Sepsis, Urinary tract infection Disposition: ADMITTED IP TO THIS HOSP Condition: Stable Referrals: Maryellen Joel MD [Primary Care Provider] - 1-2 days
[2018-03-21] MEDS ORDERED: hydrALAZINE HCL 20 MG/ML 1 ML VIAL IVP STA (15:47)
[2018-03-21] MEDS ORDERED: ERTAPENEM 1 GM in SODIUM CHLORIDE 0.9% 50 ML IVPB STA (16:05)
[2018-03-21] MEDS ORDERED: ONDANSETRON 4 MG/2 ML VIAL IVP PRN (16:10)
[2018-03-21] MEDS ORDERED: ACETAMINOPHEN TAB 325 MG TAB PO PRN (16:10)
[2018-03-21] MEDS ORDERED: TRIMETHOBENZAMIDE 300 MG CAP PO PRN (16:11)
[2018-03-21] MEDS: SODIUM CHLORIDE 0.9% 1,000 ML IV SCH (16:57)
[2018-03-21 20:22] LABS: Glucose,Whole Blood 106 mg/dL (75-99)
[2018-03-21] MEDS: METOCLOPRAMIDE 10 MG TAB PO SCH ×2 (20:46→20:47)
[2018-03-21] MEDS: CYANOCOBALAMIN 500 MCG TAB PO SCH (20:47)
[2018-03-21] MEDS: FERROUS SULFATE 325 MG TAB PO SCH (20:47)
[2018-03-21] MEDS: FAMOTIDINE 20 MG TAB PO SCH (20:47)
[2018-03-21] MEDS: RIVAROXABAN 20 MG TAB PO SCH (20:47)
[2018-03-21] MEDS: tiZANidine 4 MG TAB PO SCH (20:47)
[2018-03-21] MEDS: TOPIRAMATE 25 MG TAB PO SCH (20:48)
[2018-03-21] MEDS: HYDROmorphone 2 MG TAB PO PRN (21:12)
[2018-03-21] MEDS: INSULIN DETEMIR 100 UNIT/ML 10 ML VIAL SQ SCH (21:12)
[2018-03-22] MEDS: LEVOTHYROXINE 100 MCG TAB PO SCH (05:10)
[2018-03-22] MEDS: LEVOTHYROXINE 50 MCG TAB PO SCH (05:10)
[2018-03-22 07:20] LABS: Glucose,Whole Blood 106 mg/dL (75-99)
[2018-03-22] MEDS: INSULIN ASPART 100 UNIT/ML 1 ML 10 ML VIAL SQ SCH ×3 (08:22→17:58)
[2018-03-22] MEDS: ERTAPENEM 1 GM in SODIUM CHLORIDE 0.9% 50 ML IVPB SCH (08:23)
[2018-03-22] MEDS: METOCLOPRAMIDE 10 MG TAB PO SCH ×4 (08:24→22:38)
[2018-03-22] MEDS: FERROUS SULFATE 325 MG TAB PO SCH ×2 (08:24→22:39)
[2018-03-22] MEDS: LOSARTAN 50 MG TAB PO SCH (08:24)
[2018-03-22] MEDS: FAMOTIDINE 20 MG TAB PO SCH ×2 (08:24→22:38)
[2018-03-22] MEDS: TOPIRAMATE 25 MG TAB PO SCH ×2 (08:25→22:39)
[2018-03-22] MEDS: METOPROLOL SUCCINATE (ER) 100 MG TAB.ER.24H PO SCH (08:25)
--- NOTE | 2018-03-22 09:14 | P.CONS ---
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 She also has a history of hemiplegic migraines. Patient had a recent admission on February 02 which time she was treated for E. coli ESBL UTI with ertapenem. She was discharged home on a 14 day course in the midline in the right arm. She completed her course of antibiotics and the midline was removed. She had [facility] and [facility] infusion in place. Patient was readmitted and discharged on March 18. At that time her urine culture showed skin and genital radha and she was not discharged on antibiotics. She states that Tuesday she was having symptoms again including dysuria, right lower quadrant, right flank pain, fever up to 101, headache and nausea and vomiting. She was unable to get an appointment with her PCP until Tuesday and ended up coming into [facility] emergency center for evaluation. She has been afebrile, white count 15.6, heart rate 119, blood pressure 200/106 which is now improved. Lactic acid was 3.4 and repeat down to 0.9. Urinalysis was brown, cloudy, leukoesterase moderate, nitrate negative, wbc's 44, bacteria few, epithelial cells 8. HCG was not detected. Patient was started on ertapenem and admitted to the [facility] floor. A urine culture is in progress Review of Systems All systems: negative Constitutional: Reports chills, Reports chronic headaches, Reports fever Eyes: denies blurred vision, denies pain Ears, nose, mouth and throat: Reports headache, Denies dental pain, Denies mouth pain, Denies sore throat, Denies vertigo Cardiovascular: Denies chest pain, Denies decreased exercise tolerance, Denies dyspnea on exertion, Denies leg edema, Denies lightheadedness, Denies shortness of breath, Denies syncope Respiratory: Denies cough, Denies cough with sputum, Denies dyspnea, Denies excessive sputum, Denies hemoptysis, Denies home oxygen, Denies wheezing Gastrointestinal: Reports abdominal pain, Reports nausea, Reports vomiting, Denies diarrhea Genitourinary: Reports dysuria, Denies hematuria Musculoskeletal: Denies myalgias Integumentary: Denies pruritus, Denies rash Neurological: Denies numbness, Denies weakness Psychiatric: Denies anxiety, Denies depression Endocrine: Denies fatigue, Denies weight change Past Medical History Past Medical History: Chest Pain / Angina, CVA/TIA, Diabetes Mellitus, Deep Vein Thrombosis (DVT), Neurologic Disorder, Syncope, Thyroid Disorder Additional Past Medical History / Comment(s): Dysautonomia-progressive neurological disorder, lupus/LUPUS ANTICOAGULANTS, 2003 CVA without residual, ana maria's disease, lymphedema Lt arm d/t DVTs , v-tach, pituitary microadenoma. "mitochondrial disease". patent foramen ovale, narcolepsy, gastropareis, IDDM type II, uti's, falls, orthostatic hypotension/syncope, migraines with hemiplegia, pernicious anemia, polycystic ovarian syndrome, neuropathy bilateral legs/fee-mild, uterine ablation August 2015/patient no longer has periods-had uterine ablation uti's. History of Any Multi-Drug Resistant Organisms: ESBL, MRSA Year Discovered:: 03/09/17,02/01/18 ESBL MDRO Source:: LEFT ARM, URINE ECOLI Past Surgical History: Uterine Ablation Additional Past Surgical History / Comment(s): colonscopy/egd, angie, stress test. Past Anesthesia/Blood Transfusion Reactions: No Reported Reaction Additional Past Anesthesia/Blood Transfusion Reaction / Comm: patient states " It takes a lot of anesthesia for my body to react". Pt has received blood in past without reaction. Past Psychological History: Bipolar, Depression Additional Psychological History / Comment(s): Pt resides with her mom. She can walk short distances(room to room at home). She uses a wheelchair as well. She has a walker but doesn't use it. She does not drive she gets to [place] by bus or cab. She has hx of suicide attempt in 2015 but states that depression is stable at this time. No animal exposures. No tobacco or alcohol use. Single without children. Does not relate to other family members with her genetic disorder Smoking Status: Never smoker Past Alcohol Use History: None Reported Additional Past Alcohol Use History / Comment(s): Patient is a lifelong nonsmoker. She denies any medical marijuana, marijuana, street drug or alcohol use. She resides with her mom. She can walk short distances and otherwise uses a wheelchair. She has a walker. She does not drive but usually gets appointments by [facility]. She has history of suicide attempt in 2015 but states depression is stable. No animal exposures. Patient is single without children. Patient denies any family members with her genetic disorder. Past Drug Use History: None Reported - Past Family History Brother(s) Family Medical History: Diabetes Mellitus, Hyperlipidemia, Hypertension Additional Family Medical History / Comment(s): Patient states she has 1 brother with no major medical problems. Father Family Medical History: Diabetes Mellitus, Hyperlipidemia, Hypertension Additional Family Medical History / Comment(s): DAD IS 70 YEARS OLD. Patient states she does not have any contact with her father and does not know his medical history. Mother Family Medical History: Chest Pain / Angina, CVA/TIA, Hyperlipidemia, Hypertension Additional Family Medical History / Comment(s): AGE 62 HAS LUPUS, blood pressure swings high to low Medications and Allergies Home Medications Medication Instructions Recorded Confirmed Type Cyanocobalamin [Vitamin B-12] 2,000 mcg PO HS 01/25/16 03/21/18 History Ferrous Sulfate [Iron (65 MG 325 mg PO BID 07/14/16 03/21/18 History Elemental)] Rivaroxaban [Xarelto] 20 mg PO HS 03/09/17 03/21/18 History tiZANidine [Zanaflex] 8 mg PO HS 03/09/17 03/21/18 History Levothyroxine Sodium [Synthroid] 50 mcg PO DAILY 07/29/17 03/21/18 History Levothyroxine Sodium [Synthroid] 200 mcg PO DAILY 07/29/17 03/21/18 History Metoclopramide [Reglan] 10 mg PO ACHS 07/29/17 03/21/18 History Insulin Aspart [NovoLOG Flexpen] See Protocol SQ AC-TID 09/13/17 03/21/18 History Topiramate [Topamax] 75 mg PO BID 09/13/17 03/21/18 History Ondansetron [Zofran] 8 mg PO Q6HR PRN 09/25/17 03/21/18 History Trimethobenzamide HCl [Tigan] 300 mg PO TID PRN 09/25/17 03/21/18 History Metoprolol Succinate (ER) [Toprol 100 mg PO DAILY 10/24/17 03/21/18 History XL] Ranitidine HCl 150 mg PO BID 12/17/17 03/21/18 History HYDROmorphone [Dilaudid] 2 mg PO Q4HR PRN #60 tab 01/05/18 03/21/18 Rx Insulin Glargine [Lantus] 35 unit SQ HS 03/15/18 03/21/18 History Losartan [Cozaar] 50 mg PO DAILY 03/15/18 03/21/18 History Allergies Allergy/AdvReac Type Severity Reaction Status Date / Time barium sulfate Allergy Anaphylaxis Verified 03/21/18 15:18 diphtheria, pertussis, Allergy Unknown Verified 03/21/18 15:18 tetanus vacc doxepin [Doxepin] Allergy Anaphylaxis Verified 03/21/18 15:18 influenza virus vaccine, Allergy Anaphylaxis Verified 03/21/18 17:39 specific [Influenza Virus Vacc,Specific] promethazine HCl Allergy Anaphylaxis Verified 03/21/18 15:18 [From Phenergan] doxycycline AdvReac Nausea & Verified 03/21/18 15:18 Vomiting & Diarrhea Pertussis Vaccines AdvReac fever/seizu Verified 03/21/18 15:18 re pseudoephedrine AdvReac Chest Pain Verified 03/21/18 15:18 pseudoephedrine HCl AdvReac Chest Pain Verified 03/21/18 15:18 [From Sudafed] sulfamethoxazole AdvReac Nausea & Verified 03/21/18 15:18 [From Bactrim] Vomiting trimethoprim [From Bactrim] AdvReac Nausea & Verified 03/21/18 15:18 Vomiting Physical Exam Vitals: Vital Signs Temp Pulse Pulse Resp BP BP Pulse Ox 03/22/18 08:49 98.1 F 82 120/74 97 03/22/18 00:30 97.1 F L 73 14 97/65 97 03/21/18 20:59 98.8 F 105 H 18 136/63 96 03/21/18 20:00 105 H 03/21/18 18:08 99.1 F 112 H 18 144/98 98 03/21/18 16:55 117 H 18 144/99 98 03/21/18 15:54 116 H 18 140/101 95 03/21/18 13:59 98.8 F 119 H 18 200/106 98 Intake and Output 03/21/18 03/22/18 03/22/18 22:59 06:59 14:59 Intake Total 762.5 750 550 Balance 762.5 750 550 Intake: Intake, IV Titration 262.5 750 Amount Sodium Chloride 0.9% 1, 262.5 750 000 ml @ 75 mls/hr IV . [id number] [facility] Rx#:[id number] Oral 500 550 Other: Voiding Method Toilet Toilet # Voids 1 1 Gen: This is a 37-year-old female patient. She is sitting up in bed and appears to be very comfortable and in no acute distress. HEENT: Head is atraumatic, normocephalic. Pupils equal, round. Sclerae is anicteric. Oral mucous membranes are slightly dry. NECK: Supple. No JVD. No lymphadenopathy. No thyromegaly. LUNGS: Clear to auscultation. No wheezes or rhonchi. No intercostal retractions. HEART: Regular rate and rhythm. No murmur. ABDOMEN: Soft. Bowel sounds are present. No masses. Tenderness to the right lower quadrant as well as CVA tenderness on the right and mild on left. EXTREMITIES: No pedal edema. No calf tenderness. Dorsalis pedis +2 bilaterally. NEUROLOGICAL: Patient is awake, alert and oriented x3. Cranial nerves 2 through 12 are grossly intact. Results Results: Laboratory Results WBC 15.6 k/uL (3.8-10.6) H 03/21/18 14:56 RBC 5.01 m/uL (3.80-5.40) 03/21/18 14:56 Hgb 13.9 gm/dL (11.4-16.0) 03/21/18 14:56 Hct 41.7 % (34.0-46.0) 03/21/18 14:56 MCV 83.3 fL (80.0-100.0) 03/21/18 14:56 MCH 27.7 pg (25.0-35.0) 03/21/18 14:56 MCHC 33.2 g/dL (31.0-37.0) 03/21/18 14:56 RDW 14.1 % (11.5-15.5) 03/21/18 14:56 Plt Count 467 k/uL (150-450) H 03/21/18 14:56 Neutrophils % 80 % 03/21/18 14:56 Lymphocytes % 14 % 03/21/18 14:56 Monocytes % 5 % 03/21/18 14:56 Eosinophils % 1 % 03/21/18 14:56 Basophils % 0 % 03/21/18 14:56 Neutrophils # 12.5 k/uL (1.3-7.7) H 03/21/18 14:56 Lymphocytes # 2.1 k/uL (1.0-4.8) 03/21/18 14:56 Monocytes # 0.7 k/uL (0-1.0) 03/21/18 14:56 Eosinophils # 0.2 k/uL (0-0.7) 03/21/18 14:56 Basophils # 0.0 k/uL (0-0.2) 03/21/18 14:56 Sodium 145 mmol/L (137-145) 03/21/18 14:56 Potassium 4.3 mmol/L (3.5-5.1) 03/21/18 14:56 Chloride 109 mmol/L (98-107) H 03/21/18 14:56 Carbon Dioxide 15 mmol/L (22-30) L 03/21/18 14:56 Anion Gap 21 mmol/L 03/21/18 14:56 BUN 9 mg/dL (7-17) 03/21/18 14:56 Creatinine 0.60 mg/dL (0.52-1.04) 03/21/18 14:56 Est GFR (CKD-EPI)AfAm >90 (>60 ml/min/1.73 sqM) 03/21/18 14:56 Est GFR (CKD-EPI)NonAf >90 (>60 ml/min/1.73 sqM) 03/21/18 14:56 Glucose 129 mg/dL (74-99) H 03/21/18 14:56 POC Glucose (mg/dL) 106 mg/dL (75-99) H 03/22/18 07:01 POC Glu Executive Sales Assistant ID Christen Louis 03/22/18 07:01 Lactic Ac Sepsis Rflx Y 03/21/18 15:59 Plasma Lactic Acid Joce 0.9 mmol/L (0.7-2.0) 03/21/18 19:14 Calcium 10.5 mg/dL (8.4-10.2) H 03/21/18 14:56 Total Bilirubin 0.6 mg/dL (0.2-1.3) 03/21/18 14:56 AST 42 U/L (14-36) H 03/21/18 14:56 ALT 28 U/L (9-52) 03/21/18 14:56 Alkaline Phosphatase 120 U/L (38-126) 03/21/18 14:56 Total Protein 8.0 g/dL (6.3-8.2) 03/21/18 14:56 Albumin 5.0 g/dL (3.5-5.0) 03/21/18 14:56 Amylase 46 U/L (30-110) 03/21/18 14:56 Lipase 90 U/L (23-300) 03/21/18 14:56 Urine Color Brown 03/21/18 14:56 Urine Appearance Cloudy (Clear) H 03/21/18 14:56 Urine pH 5.0 (5.0-8.0) 03/21/18 14:56 Ur Specific [place] 1.022 (1.001-1.035) 03/21/18 14:56 Urine Protein 1+ (Negative) H 03/21/18 14:56 Urine Glucose (UA) Negative (Negative) 03/21/18 14:56 Urine Ketones Negative (Negative) 03/21/18 14:56 Urine Blood Negative (Negative) 03/21/18 14:56 Urine Nitrite Negative (Negative) 03/21/18 14:56 Urine Bilirubin Negative (Negative) 03/21/18 14:56 Urine Urobilinogen <2.0 mg/dL (<2.0) 03/21/18 14:56 Ur Leukocyte Esterase Moderate (Negative) H 03/21/18 14:56 Urine RBC 1 /hpf (0-5) 03/21/18 14:56 Urine WBC 44 /hpf (0-5) H 03/21/18 14:56 Ur Squamous Epith Cells 8 /hpf (0-4) H 03/21/18 14:56 Amorphous Sediment Occasional /hpf (None) H 03/21/18 14:56 Urine Bacteria Few /hpf (None) H 03/21/18 14:56 Hyaline Casts 30 /lpf (0-2) H 03/21/18 14:56 Urine Mucus Many /hpf (None) H 03/21/18 14:56 Urine HCG, Qual Not Detected (Not Detectd) 03/21/18 14:56 CBC & Chem 7: 03/21/18 14:56 03/21/18 14:56 Labs: Abnormal Lab Results - Last 24 Hours (Table) 03/21/18 03/21/18 03/21/18 Range/Units 14:56 14:56 14:56 WBC 15.6 H (3.8-10.6) k/uL Plt Count 467 H (150-450) k/uL Neutrophils # 12.5 H (1.3-7.7) k/uL Chloride 109 H (98-107) mmol/L Carbon Dioxide 15 L (22-30) mmol/L Glucose 129 H (74-99) mg/dL POC Glucose (mg/dL) (75-99) mg/dL Plasma Lactic Acid Joce (0.7-2.0) mmol/L Calcium 10.5 H (8.4-10.2) mg/dL AST 42 H (14-36) U/L Urine Appearance Cloudy H (Clear) Urine Protein 1+ H (Negative) Ur Leukocyte Esterase Moderate H (Negative) Urine WBC 44 H (0-5) /hpf Ur Squamous Epith Cells 8 H (0-4) /hpf Amorphous Sediment Occasional H (None) /hpf Urine Bacteria Few H (None) /hpf Hyaline Casts 30 H (0-2) /lpf Urine Mucus Many H (None) /hpf 03/21/18 03/21/18 03/22/18 Range/Units 14:56 20:20 07:01 WBC (3.8-10.6) k/uL Plt Count (150-450) k/uL Neutrophils # (1.3-7.7) k/uL Chloride (98-107) mmol/L Carbon Dioxide (22-30) mmol/L Glucose (74-99) mg/dL POC Glucose (mg/dL) 106 H 106 H (75-99) mg/dL Plasma Lactic Acid Joce 3.4 H* (0.7-2.0) mmol/L Calcium (8.4-10.2) mg/dL AST (14-36) U/L Urine Appearance (Clear) Urine Protein (Negative) Ur Leukocyte Esterase (Negative) Urine WBC (0-5) /hpf Ur Squamous Epith Cells (0-4) /hpf Amorphous Sediment (None) /hpf Urine Bacteria (None) /hpf Hyaline Casts (0-2) /lpf Urine Mucus (None) /hpf Microbiology - Last 24 Hours (Table) 03/21/18 14:56 Urine Culture - Preliminary Urine,Clean Catch Assessment and Plan Plan: This is a 37-year-old female patient who was recently treated for E. coli ESBL urinary tract infection and completed her course of 14 days of IV antibiotic with ertapenem. Patient presents with signs of sepsis possibly due to urinary tract infection. Patient will be continued on ertapenem. Urine culture in progress. Continue supportive care. Further recommendations as patient progresses. The above dictated assessment and findings were discussed with Dr. Hansen. The impression and plan of care have been directed as dictated. Linda Cerna nurse practitioner acting as scribe for Dr. Hansen.
[2018-03-22 11:45] LABS: Glucose,Whole Blood 132 mg/dL (75-99)
[2018-03-22] MEDS: HYDROmorphone 2 MG TAB PO PRN ×2 (12:39→22:44)
--- NOTE | 2018-03-22 13:06 | P.HPIM ---
History of Present Illness H&P Date: 03/22/18 37-year-old female who presented to [facility] emergency room with a chief complaint of dysuria and the right flank pain, patient was recently admitted to [facility] with similar symptoms she was discharged on Tuesday at that time her urine culture was clean. 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 Patient had a recent admission on February 02 which time she was treated for E. coli ESBL UTI with ertapenem. She was discharged home on a 14 day course in the midline in the right arm. She completed her course of antibiotics and the midline was removed. She had [facility] care and Aj infusion in place. Patient was readmitted and discharged on March 18. At that time her urine culture showed skin and genital radha and she was not discharged on antibiotics. She states that Tuesday she was having symptoms again including dysuria, right lower quadrant, right flank pain, fever up to 101, headache and nausea and vomiting. She was unable to get an appointment with her PCP until Tuesday and ended up coming into [facility] emergency center for evaluation. She has been afebrile, white count 15.6, heart rate 119, blood pressure 200/106 which is now improved. Lactic acid was 3.4 and repeat down to 0.9. Urinalysis was brown, cloudy, leukoesterase moderate, nitrate negative, wbc's 44, bacteria few, epithelial cells 8. HCG was not detected. Patient was started on ertapenem and admitted to the medical floor, urine culture is in progress. Past Medical History Past Medical History: Chest Pain / Angina, CVA/TIA, Diabetes Mellitus, Deep Vein Thrombosis (DVT), Neurologic Disorder, Syncope, Thyroid Disorder Additional Past Medical History / Comment(s): Dysautonomia-progressive neurological disorder, lupus/LUPUS ANTICOAGULANTS, 2004 CVA without residual, ana maria's disease, lymphedema Lt arm d/t DVTs , v-tach, pituitary microadenoma. "mitochondrial disease". patent foramen ovale, narcolepsy, gastropareis, IDDM type II, uti's, falls, orthostatic hypotension/syncope, migraines with hemiplegia, pernicious anemia, polycystic ovarian syndrome, neuropathy bilateral legs/fee-mild, uterine ablation August 2015/patient no longer has periods-had uterine ablation uti's. History of Any Multi-Drug Resistant Organisms: ESBL, MRSA Date of last positivie culture/infection: 03/09/17,02/01/18 ESBL MDRO Source:: LEFT ARM, URINE ECOLI Past Surgical History: Uterine Ablation Additional Past Surgical History / Comment(s): colonscopy/egd, angie, stress test. Past Anesthesia/Blood Transfusion Reactions: No Reported Reaction Additional Past Anesthesia/Blood Transfusion Reaction / Comment(s): patient states "It takes a lot of anesthesia for my body to react". Pt has received blood in past without reaction. Past Psychological History: Bipolar, Depression Additional Psychological History / Comment(s): Pt resides with her mom. She can walk short distances(room to room at home). She uses a wheelchair as well. She has a walker but doesn't use it. She does not drive she gets to appts by bus or cab. She has hx of suicide attempt in 2014 but states that depression is stable at this time. No animal exposures. No tobacco or alcohol use. Single without children. Does not relate to other family members with her genetic disorder Smoking Status: Never smoker Past Alcohol Use History: None Reported Additional Past Alcohol Use History / Comment(s): Patient is a lifelong nonsmoker. She denies any medical marijuana, marijuana, street drug or alcohol use. She resides with her mom. She can walk short distances and otherwise uses a wheelchair. She has a walker. She does not drive but usually gets appointments by [facility]. She has history of suicide attempt in 2014 but states depression is stable. No animal exposures. Patient is single without children. Patient denies any family members with her genetic disorder. Past Drug Use History: None Reported - Past Family History Brother(s) Family Medical History: Diabetes Mellitus, Hyperlipidemia, Hypertension Additional Family Medical History / Comment(s): Patient states she has 1 brother with no major medical problems. Father Family Medical History: Diabetes Mellitus, Hyperlipidemia, Hypertension Additional Family Medical History / Comment(s): DAD IS 70 YEARS OLD. Patient states she does not have any contact with her father and does not know his medical history. Mother Family Medical History: Chest Pain / Angina, CVA/TIA, Hyperlipidemia, Hypertension Additional Family Medical History / Comment(s): AGE 62 HAS LUPUS, blood pressure swings high to low Medications and Allergies Home Medications Medication Instructions Recorded Confirmed Type Cyanocobalamin [Vitamin B-12] 2,000 mcg PO HS 01/25/16 03/21/18 History Ferrous Sulfate [Iron (65 MG 325 mg PO BID 07/14/16 03/21/18 History Elemental)] Rivaroxaban [Xarelto] 20 mg PO HS 03/09/17 03/21/18 History tiZANidine [Zanaflex] 8 mg PO HS 03/09/17 03/21/18 History Levothyroxine Sodium [Synthroid] 50 mcg PO DAILY 07/29/17 03/21/18 History Levothyroxine Sodium [Synthroid] 200 mcg PO DAILY 07/29/17 03/21/18 History Metoclopramide [Reglan] 10 mg PO ACHS 07/29/17 03/21/18 History Insulin Aspart [NovoLOG Flexpen] See Protocol SQ AC-TID 09/13/17 03/21/18 History Topiramate [Topamax] 75 mg PO BID 09/13/17 03/21/18 History Ondansetron [Zofran] 8 mg PO Q6HR PRN 09/25/17 03/21/18 History Trimethobenzamide HCl [Tigan] 300 mg PO TID PRN 09/25/17 03/21/18 History Metoprolol Succinate (ER) [Toprol 100 mg PO DAILY 10/24/17 03/21/18 History XL] Ranitidine HCl 150 mg PO BID 12/17/17 03/21/18 History HYDROmorphone [Dilaudid] 2 mg PO Q4HR PRN #60 tab 01/05/18 03/21/18 Rx Insulin Glargine [Lantus] 35 unit SQ HS 03/15/18 03/21/18 History Losartan [Cozaar] 50 mg PO DAILY 03/15/18 03/21/18 History Allergies Allergy/AdvReac Type Severity Reaction Status Date / Time barium sulfate Allergy Anaphylaxis Verified 03/21/18 15:18 diphtheria, pertussis, Allergy Unknown Verified 03/21/18 15:18 tetanus vacc doxepin [Doxepin] Allergy Anaphylaxis Verified 03/21/18 15:18 influenza virus vaccine, Allergy Anaphylaxis Verified 03/21/18 17:39 specific [Influenza Virus Vacc,Specific] promethazine HCl Allergy Anaphylaxis Verified 03/21/18 15:18 [From Phenergan] doxycycline AdvReac Nausea & Verified 03/21/18 15:18 Vomiting & Diarrhea Pertussis Vaccines AdvReac fever/seizu Verified 03/21/18 15:18 re pseudoephedrine AdvReac Chest Pain Verified 03/21/18 15:18 pseudoephedrine HCl AdvReac Chest Pain Verified 03/21/18 15:18 [From Sudafed] sulfamethoxazole AdvReac Nausea & Verified 03/21/18 15:18 [From Bactrim] Vomiting trimethoprim [From Bactrim] AdvReac Nausea & Verified 03/21/18 15:18 Vomiting Physical Exam Vitals: Vital Signs Temp Pulse Pulse Resp BP BP Pulse Ox 03/22/18 08:49 98.1 F 82 120/74 97 03/22/18 00:30 97.1 F L 73 14 97/65 97 03/21/18 20:59 98.8 F 105 H 18 136/63 96 03/21/18 20:00 105 H 03/21/18 18:08 99.1 F 112 H 18 144/98 98 03/21/18 16:55 117 H 18 144/99 98 03/21/18 15:54 116 H 18 140/101 95 03/21/18 13:59 98.8 F 119 H 18 200/106 98 Intake and Output 03/21/18 03/22/18 03/22/18 22:59 06:59 14:59 Intake Total 762.5 750 550 Balance 762.5 750 550 Intake: Intake, IV Titration 262.5 750 Amount Sodium Chloride 0.9% 1, 262.5 750 000 ml @ 75 mls/hr IV . [id number] [facility] Rx#:[id number] Oral 500 550 Other: Voiding Method Toilet Toilet # Voids 1 1 In general patient is alert and oriented 3 in no apparent distress HEENT head normocephalic and atraumatic Neck is supple no JVD no goiter no lymphadenopathy Chest exam reveals a few scattered crackles no wheezing Cardiac exam reveals regular heart sounds S1 and S2 no gallops no murmurs Abdomen is soft there is tenderness in the right lower quadrant and right flank area, no organomegaly with normal bowel sounds Extremity exam reveals no edema no cyanosis or clubbing Neurological examination reveals no gross focal deficit. Results CBC & Chem 7: 03/21/18 14:56 03/21/18 14:56 Labs: Abnormal Lab Results - Last 24 Hours (Table) 03/21/18 03/21/18 03/21/18 Range/Units 14:56 14:56 14:56 WBC 15.6 H (3.8-10.6) k/uL Plt Count 467 H (150-450) k/uL Neutrophils # 12.5 H (1.3-7.7) k/uL Chloride 109 H (98-107) mmol/L Carbon Dioxide 15 L (22-30) mmol/L Glucose 129 H (74-99) mg/dL POC Glucose (mg/dL) (75-99) mg/dL Plasma Lactic Acid Joce (0.7-2.0) mmol/L Calcium 10.5 H (8.4-10.2) mg/dL AST 42 H (14-36) U/L Urine Appearance Cloudy H (Clear) Urine Protein 1+ H (Negative) Ur Leukocyte Esterase Moderate H (Negative) Urine WBC 44 H (0-5) /hpf Ur Squamous Epith Cells 8 H (0-4) /hpf Amorphous Sediment Occasional H (None) /hpf Urine Bacteria Few H (None) /hpf Hyaline Casts 30 H (0-2) /lpf Urine Mucus Many H (None) /hpf 03/21/18 03/21/18 03/22/18 Range/Units 14:56 20:20 07:01 WBC (3.8-10.6) k/uL Plt Count (150-450) k/uL Neutrophils # (1.3-7.7) k/uL Chloride (98-107) mmol/L Carbon Dioxide (22-30) mmol/L Glucose (74-99) mg/dL POC Glucose (mg/dL) 106 H 106 H (75-99) mg/dL Plasma Lactic Acid Joce 3.4 H* (0.7-2.0) mmol/L Calcium (8.4-10.2) mg/dL AST (14-36) U/L Urine Appearance (Clear) Urine Protein (Negative) Ur Leukocyte Esterase (Negative) Urine WBC (0-5) /hpf Ur Squamous Epith Cells (0-4) /hpf Amorphous Sediment (None) /hpf Urine Bacteria (None) /hpf Hyaline Casts (0-2) /lpf Urine Mucus (None) /hpf 03/22/18 Range/Units 11:32 WBC (3.8-10.6) k/uL Plt Count (150-450) k/uL Neutrophils # (1.3-7.7) k/uL Chloride (98-107) mmol/L Carbon Dioxide (22-30) mmol/L Glucose (74-99) mg/dL POC Glucose (mg/dL) 132 H (75-99) mg/dL Plasma Lactic Acid Joce (0.7-2.0) mmol/L Calcium (8.4-10.2) mg/dL AST (14-36) U/L Urine Appearance (Clear) Urine Protein (Negative) Ur Leukocyte Esterase (Negative) Urine WBC (0-5) /hpf Ur Squamous Epith Cells (0-4) /hpf Amorphous Sediment (None) /hpf Urine Bacteria (None) /hpf Hyaline Casts (0-2) /lpf Urine Mucus (None) /hpf Microbiology - Last 24 Hours (Table) 03/21/18 14:56 Urine Culture - Preliminary Urine,Clean Catch Thrombosis Risk Factor Assmnt - Choose All That Apply Any of the Below Risk Factors Present?: Yes Each Factor Represents 1 point: Obesity (BMI >25) Other Risk Factors: Yes Each Risk Factor Represents 3 Points: Family history of DVT/PE, History of DVT/ PE Thrombosis Risk Factor Assessment Total Risk Factor Score: 7 Thrombosis Risk Factor Assessment Level: High Risk Assessment and Plan Plan: #1 urinary tract infection #2 sepsis, with fever leukocytosis and elevated lactic acid #3 underlying history of mitochondrial syndrome, affecting her immune system #4 underlying history of progressive dysautonomia At this time patient is readmitted to medical floor she was restarted on ertapenem, consultation for Dr. Hansen was initiated clinically patient is doing better will follow closely
[2018-03-22 17:38] LABS: Glucose,Whole Blood 114 mg/dL (75-99)
[2018-03-22 18:48] LABS: Hemoglobin A1C 7.3 % (4.0-6.0)
[2018-03-22 21:11] LABS: Glucose,Whole Blood 123 mg/dL (75-99)
[2018-03-22] MEDS: RIVAROXABAN 20 MG TAB PO SCH (22:38)
[2018-03-22] MEDS: INSULIN DETEMIR 100 UNIT/ML 10 ML VIAL SQ SCH (22:38)
[2018-03-22] MEDS: CYANOCOBALAMIN 500 MCG TAB PO SCH (22:39)
[2018-03-22] MEDS: tiZANidine 4 MG TAB PO SCH (22:39)
--- NOTE | 2018-03-22 23:41 | P.CON ---
Consult Note - . 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 She also has a history of hemiplegic migraines. Patient had a recent admission on February 02 which time she was treated for E. coli ESBL UTI with ertapenem. She was discharged home on a 14 day course in the midline in the right arm. She completed her course of antibiotics and the midline was removed. She had [place] home care and [facility] infusion in place. Patient was readmitted and discharged on March 18. At that time her urine culture showed skin and genital radha and she was not discharged on antibiotics. She states that Tuesday she was having symptoms again including dysuria, right lower quadrant, right flank pain, fever up to 101, headache and nausea and vomiting. She was unable to get an appointment with her PCP until Tuesday and ended up coming into [facility] emergency center for evaluation. She has been afebrile, white count 15.6, heart rate 119, blood pressure 200/106 which is now improved. Lactic acid was 3.4 and repeat down to 0.9. Urinalysis was brown, cloudy, leukoesterase moderate, nitrate negative, wbc's 44, bacteria few, epithelial cells 8. HCG was not detected. Patient was started on ertapenem and admitted to the [facility] floor. A urine culture is in progress Please see the consult note is dictated by nurse practitioner Mrs. Linda Cerna. The patient is feeling slightly better since coming to hospital with fluid resuscitation and initiation of antibiotic therapy. The patient does have mitochondrial disease and rapidly developed lactic acidosis when she becomes ill. She has been able to eat her meals today which is the best she's done many days. Plan will be for outpatient intravenous antibiotic therapy. Midline catheter to be placed outpatient Invanz and daily IV fluid infusion will be utilized to improve her status. I agree with evaluation, assessment and plan is dictated by nurse practitioner Mrs. Linda Cerna.
[2018-03-23] MEDS: INSULIN ASPART 100 UNIT/ML 1 ML 10 ML VIAL SQ SCH ×5 (00:35→23:19)
[2018-03-23] MEDS: SODIUM CHLORIDE 0.9% 1,000 ML IV SCH ×4 (00:35→23:30)
[2018-03-23] MEDS: LEVOTHYROXINE 100 MCG TAB PO SCH (06:20)
[2018-03-23] MEDS: LEVOTHYROXINE 50 MCG TAB PO SCH (06:20)
[2018-03-23 07:21] LABS: Glucose,Whole Blood 108 mg/dL (75-99)
[2018-03-23 08:29] LABS: Basophils % (A) 0 %; Eosinophils # (A) 0.3 k/uL (0-0.7); Eosinophils % (A) 4 %; HCT 36.4 % (34.0-46.0); HGB 12.3 gm/dL (11.4-16.0); Lymphocytes # (A) 1.8 k/uL (1.0-4.8); Lymphocytes % (A) 25 %; MCH 28.1 pg (25.0-35.0); MCHC 33.8 g/dL (31.0-37.0); MCV 83.3 fL (80.0-100.0); Mean Platelet Volume 8.3; Monocytes # (A) 0.5 k/uL (0-1.0); Monocytes % (A) 7 %; Neutrophils # (A) 4.4 k/uL (1.3-7.7); Neutrophils % (A) 63 %; Platelet Count 303 k/uL (150-450); RBC 4.37 m/uL (3.80-5.40); RDW 13.9 % (11.5-15.5)
[2018-03-23] MEDS: FAMOTIDINE 20 MG TAB PO SCH ×2 (10:36→23:01)
[2018-03-23] MEDS: ERTAPENEM 1 GM in SODIUM CHLORIDE 0.9% 50 ML IVPB SCH (10:36)
[2018-03-23] MEDS: METOPROLOL SUCCINATE (ER) 100 MG TAB.ER.24H PO SCH (10:37)
[2018-03-23] MEDS: METOCLOPRAMIDE 10 MG TAB PO SCH ×4 (10:37→23:01)
[2018-03-23] MEDS: LOSARTAN 50 MG TAB PO SCH (10:37)
[2018-03-23] MEDS: FERROUS SULFATE 325 MG TAB PO SCH ×2 (10:37→23:01)
[2018-03-23] MEDS: TOPIRAMATE 25 MG TAB PO SCH ×2 (10:39→23:01)
[2018-03-23 10:41] LABS: ALT 19 U/L (9-52); AST 23 U/L (14-36); Albumin 3.8 g/dL (3.5-5.0); Alkaline Phosphatase 90 U/L (38-126); Anion Gap 19 mmol/L; Blood Urea Nitrogen 8 mg/dL (7-17); Calcium 10.2 mg/dL (8.4-10.2); Carbon Dioxide 13 mmol/L (22-30); Chloride 119 mmol/L (98-107); Glucose 114 mg/dL (74-99); Potassium 4.6 mmol/L (3.5-5.1); Sodium 151 mmol/L (137-145); Total Bilirubin 0.4 mg/dL (0.2-1.3); Total Protein 6.2 g/dL (6.3-8.2)
--- NOTE | 2018-03-23 10:44 | P.PN ---
Subjective Progress Note Date: 03/23/18 37-year-old female who presented to [facility] emergency room with a chief complaint of dysuria and the right flank pain, patient was recently admitted to [facility] with similar symptoms she was discharged on Tuesday at that time her urine culture was clean. 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 Patient had a recent admission on February 02 which time she was treated for E. coli ESBL UTI with ertapenem. She was discharged home on a 14 day course in the midline in the right arm. She completed her course of antibiotics and the midline was removed. She had [facility] care and Aj infusion in place. Patient was readmitted and discharged on March 18. At that time her urine culture showed skin and genital radha and she was not discharged on antibiotics. She states that Tuesday she was having symptoms again including dysuria, right lower quadrant, right flank pain, fever up to 101, headache and nausea and vomiting. She was unable to get an appointment with her PCP until Tuesday and ended up coming into [facility] emergency center for evaluation. She has been afebrile, white count 15.6, heart rate 119, blood pressure 200/106 which is now improved. Lactic acid was 3.4 and repeat down to 0.9. Urinalysis was brown, cloudy, leukoesterase moderate, nitrate negative, wbc's 44, bacteria few, epithelial cells 8. HCG was not detected. Patient was started on ertapenem and admitted to the medical floor, urine culture is in progress. 03/23/2018 patient has having improvement in her burning with urination and her right flank pain. White count has normalized from 15.67. Urine culture growing strep agalactiae group B. Patient denies any chest pain or shortness of breath. Denies any nausea or vomiting. Reports having regular bowel movements. Has been up and ambulating Objective - Vital Signs Vital signs: Vital Signs Temp 98.8 F 03/22/18 21:00 Pulse 87 03/22/18 21:00 Resp 18 03/22/18 21:00 BP 160/80 03/22/18 21:00 Pulse Ox 98 03/22/18 21:00 Intake & Output 03/22/18 03/23/18 03/23/18 18:59 06:59 18:59 Intake Total 1050 1560 360 Balance 1050 1560 360 Intake: Intake, IV Titration 480 Amount Sodium Chloride 0.9% 1, 480 000 ml @ 75 mls/hr IV . [id number] [facility] Rx#:[id number] Oral 1050 1080 360 Other: Voiding Method Toilet Toilet # Voids 2 3 - Exam Head normocephalic Neck supple Lungs clear to auscultation bilaterally no wheezing or crackles Heart regular rate and rhythm S1-S2, no rub or gallop Abdomen is soft right flank tenderness and suprapubic tenderness Extremities no edema Neuro alert and orientated to 3 - Labs CBC & Chem 7: 03/23/18 07:46 03/21/18 14:56 Labs: Abnormal Lab Results - Last 24 Hours (Table) 03/21/18 03/22/18 03/22/18 Range/Units 14:56 11:32 17:34 POC Glucose (mg/dL) 132 H 114 H (75-99) mg/dL Hemoglobin A1c 7.3 H (4.0-6.0) % 03/22/18 03/23/18 Range/Units 20:52 07:12 POC Glucose (mg/dL) 123 H 108 H (75-99) mg/dL Hemoglobin A1c (4.0-6.0) % Microbiology - Last 24 Hours (Table) 03/21/18 14:56 Urine Culture - Final Urine,Clean Catch Strep agalactiae - (group b) Assessment and Plan Assessment: 1. UTI with sepsis present on admission. Continue Invanz. Await further recommendations per infectious disease about possible midline placement and IV antibiotics at discharge. Urine culture growing strept agalactiae Group B 2. History of mitochondrial syndrome, affecting her immune system 3. History of lupus anticoagulant disorder. Anticoagulated with Xarelto 4. Hypothyroidism 5. Insulin-dependent diabetes mellitus: Blood sugars are stable. Continue his current medications GI prophylaxis Pepcid and DVT prophylaxis Xarelto I performed an examination of the patient and discussed their management with the physician [employer]. I have reviewed the Physician [employer]'s notes and agree with the documented findings and plan of care
[2018-03-23] MEDS: HYDROmorphone 2 MG TAB PO PRN ×2 (10:58→23:02)
[2018-03-23] MEDS: ONDANSETRON 4 MG TAB PO PRN (10:58)
[2018-03-23 11:46] LABS: Glucose,Whole Blood 119 mg/dL (75-99)
[2018-03-23 17:28] LABS: Glucose,Whole Blood 116 mg/dL (75-99)
[2018-03-23 20:42] LABS: Glucose,Whole Blood 115 mg/dL (75-99)
[2018-03-23] MEDS: INSULIN DETEMIR 100 UNIT/ML 10 ML VIAL SQ SCH (23:00)
[2018-03-23] MEDS: tiZANidine 4 MG TAB PO SCH (23:01)
[2018-03-23] MEDS: CYANOCOBALAMIN 500 MCG TAB PO SCH (23:01)
[2018-03-23] MEDS: RIVAROXABAN 20 MG TAB PO SCH (23:01)
--- NOTE | 2018-03-24 00:09 | P.PN ---
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 She also has a history of hemiplegic migraines. Patient had a recent admission on February 02 which time she was treated for E. coli ESBL UTI with ertapenem. She was discharged home on a 14 day course in the midline in the right arm. She completed her course of antibiotics and the midline was removed. She had [facility] care and [facility] infusion in place. Patient was readmitted and discharged on March 18. At that time her urine culture showed skin and genital radha and she was not discharged on antibiotics. She states that Tuesday she was having symptoms again including dysuria, right lower quadrant, right flank pain, fever up to 101, headache and nausea and vomiting. She was unable to get an appointment with her PCP until Tuesday and ended up coming into [facility] emergency center for evaluation. She has been afebrile, white count 15.6, heart rate 119, blood pressure 200/106 which is now improved. Lactic acid was 3.4 and repeat down to 0.9. Urinalysis was brown, cloudy, leukoesterase moderate, nitrate negative, wbc's 44, bacteria few, epithelial cells 8. HCG was not detected. Patient was started on ertapenem and admitted to the Medr floor. A urine culture is in progress 03/23/2018 patient continues to have some improvement. After hydration and antibiotic therapy her nausea and abdominal pain is improved. She's now had 4 meals in the last 4 attempts which is considerably improved over the last 2 weeks. Objective - Vital Signs Vital signs: Vital Signs Temp 98.4 F 03/23/18 20:00 Pulse 78 03/23/18 20:00 Resp 16 03/23/18 20:00 BP 103/64 03/23/18 20:00 Pulse Ox 95 03/23/18 20:00 Intake & Output 03/23/18 03/23/18 03/24/18 06:59 18:59 06:59 Intake Total 1560 1792 Balance 1560 1792 Intake: Intake, IV Titration 480 575 Amount Ertapenem 1 gm In Sodium 50 Chloride 0.9% 50 ml @ 100 mls/hr IVPB DAILY [facility] Rx #:[id number] Sodium Chloride 0.9% 1, 480 525 000 ml @ 75 mls/hr IV . [id number] [facility] Rx#:[id number] Oral 1080 1217 Other: Voiding Method Toilet Toilet # Voids 3 - Exam Gen: This is a 37-year-old female patient. She is sitting up in bed and appears to be very comfortable and in no acute distress. HEENT: Head is atraumatic, normocephalic. Pupils equal, round. Sclerae is anicteric. Oral mucous membranes are slightly dry. NECK: Supple. No JVD. No lymphadenopathy. No thyromegaly. LUNGS: Clear to auscultation. No wheezes or rhonchi. No intercostal retractions. HEART: Regular rate and rhythm. No murmur. ABDOMEN: Soft. Bowel sounds are present. No masses. Tenderness to the right lower quadrant as well as CVA tenderness on the right and mild on left. EXTREMITIES: No pedal edema. No calf tenderness. Dorsalis pedis +2 bilaterally. NEUROLOGICAL: Patient is awake, alert and oriented x3. - Labs CBC & Chem 7: 03/23/18 07:46 03/23/18 07:46 Labs: Abnormal Lab Results - Last 24 Hours (Table) 03/21/18 03/23/18 03/23/18 Range/Units 14:56 07:12 07:46 Sodium 151 H (137-145) mmol/L Chloride 119 H (98-107) mmol/L Carbon Dioxide 13 L (22-30) mmol/L Creatinine 0.50 L (0.52-1.04) mg/dL Glucose 114 H (74-99) mg/dL POC Glucose (mg/dL) 108 H (75-99) mg/dL Hemoglobin A1c 7.3 H (4.0-6.0) % Total Protein 6.2 L (6.3-8.2) g/dL 03/23/18 03/23/18 03/23/18 Range/Units 11:12 17:24 20:29 Sodium (137-145) mmol/L Chloride (98-107) mmol/L Carbon Dioxide (22-30) mmol/L Creatinine (0.52-1.04) mg/dL Glucose (74-99) mg/dL POC Glucose (mg/dL) 119 H 116 H 115 H (75-99) mg/dL Hemoglobin A1c (4.0-6.0) % Total Protein (6.3-8.2) g/dL Microbiology - Last 24 Hours (Table) 03/21/18 14:56 Urine Culture - Final Urine,Clean Catch Strep agalactiae - (group b) Laboratory Results WBC 7.0 k/uL (3.8-10.6) 03/23/18 07:46 RBC 4.37 m/uL (3.80-5.40) 03/23/18 07:46 Hgb 12.3 gm/dL (11.4-16.0) 03/23/18 07:46 Hct 36.4 % (34.0-46.0) 03/23/18 07:46 MCV 83.3 fL (80.0-100.0) 03/23/18 07:46 MCH 28.1 pg (25.0-35.0) 03/23/18 07:46 MCHC 33.8 g/dL (31.0-37.0) 03/23/18 07:46 RDW 13.9 % (11.5-15.5) 03/23/18 07:46 Plt Count 303 k/uL (150-450) 03/23/18 07:46 Neutrophils % 63 % 03/23/18 07:46 Lymphocytes % 25 % 03/23/18 07:46 Monocytes % 7 % 03/23/18 07:46 Eosinophils % 4 % 03/23/18 07:46 Basophils % 0 % 03/23/18 07:46 Neutrophils # 4.4 k/uL (1.3-7.7) 03/23/18 07:46 Lymphocytes # 1.8 k/uL (1.0-4.8) 03/23/18 07:46 Monocytes # 0.5 k/uL (0-1.0) 03/23/18 07:46 Eosinophils # 0.3 k/uL (0-0.7) 03/23/18 07:46 Basophils # 0.0 k/uL (0-0.2) 03/23/18 07:46 Sodium 151 mmol/L (137-145) H 03/23/18 07:46 Potassium 4.6 mmol/L (3.5-5.1) 03/23/18 07:46 Chloride 119 mmol/L (98-107) H 03/23/18 07:46 Carbon Dioxide 13 mmol/L (22-30) L 03/23/18 07:46 Anion Gap 19 mmol/L 03/23/18 07:46 BUN 8 mg/dL (7-17) 03/23/18 07:46 Creatinine 0.50 mg/dL (0.52-1.04) L 03/23/18 07:46 Est GFR (CKD-EPI)AfAm >90 (>60 ml/min/1.73 sqM) 03/23/18 07:46 Est GFR (CKD-EPI)NonAf >90 (>60 ml/min/1.73 sqM) 03/23/18 07:46 Glucose 114 mg/dL (74-99) H 03/23/18 07:46 POC Glucose (mg/dL) 115 mg/dL (75-99) H 03/23/18 20:29 POC Glu Boilermaker Mechanic ID Alyssa Espinal 03/23/18 20:[address] Glu mg/dL 163 03/21/18 14:56 Hemoglobin A1c 7.3 % (4.0-6.0) H 03/21/18 14:56 Lactic Ac Sepsis Rflx Y 03/21/18 15:59 Plasma Lactic Acid Joce 0.9 mmol/L (0.7-2.0) 03/21/18 19:14 Calcium 10.2 mg/dL (8.4-10.2) 03/23/18 07:46 Total Bilirubin 0.4 mg/dL (0.2-1.3) 03/23/18 07:46 AST 23 U/L (14-36) 03/23/18 07:46 ALT 19 U/L (9-52) 03/23/18 07:46 Alkaline Phosphatase 90 U/L (38-126) 03/23/18 07:46 Total Protein 6.2 g/dL (6.3-8.2) L 03/23/18 07:46 Albumin 3.8 g/dL (3.5-5.0) 03/23/18 07:46 Amylase 46 U/L (30-110) 03/21/18 14:56 Lipase 90 U/L (23-300) 03/21/18 14:56 Urine Color Brown 03/21/18 14:56 Urine Appearance Cloudy (Clear) H 03/21/18 14:56 Urine pH 5.0 (5.0-8.0) 03/21/18 14:56 Ur Specific [place] 1.022 (1.001-1.035) 03/21/18 14:56 Urine Protein 1+ (Negative) H 03/21/18 14:56 Urine Glucose (UA) Negative (Negative) 03/21/18 14:56 Urine Ketones Negative (Negative) 03/21/18 14:56 Urine Blood Negative (Negative) 03/21/18 14:56 Urine Nitrite Negative (Negative) 03/21/18 14:56 Urine Bilirubin Negative (Negative) 03/21/18 14:56 Urine Urobilinogen <2.0 mg/dL (<2.0) 03/21/18 14:56 Ur Leukocyte Esterase Moderate (Negative) H 03/21/18 14:56 Urine RBC 1 /hpf (0-5) 03/21/18 14:56 Urine WBC 44 /hpf (0-5) H 03/21/18 14:56 Ur Squamous Epith Cells 8 /hpf (0-4) H 03/21/18 14:56 Amorphous Sediment Occasional /hpf (None) H 03/21/18 14:56 Urine Bacteria Few /hpf (None) H 03/21/18 14:56 Hyaline Casts 30 /lpf (0-2) H 03/21/18 14:56 Urine Mucus Many /hpf (None) H 03/21/18 14:56 Urine HCG, Qual Not Detected (Not Detectd) 03/21/18 14:56 Microbiology 03/21/18 14:56 Urine,Clean Catch Urine Culture - Final Strep agalactiae - (group b) Assessment and Plan (1) Sepsis Narrative/Plan: 03/23/2018 The patient is feeling slightly better since coming to hospital with fluid resuscitation and initiation of antibiotic therapy. The patient does have mitochondrial disease and rapidly developed lactic acidosis when she becomes ill. She has been able to eat her meals today which is the best she's done many days. Plan will be for outpatient intravenous antibiotic therapy. Midline catheter to be placed outpatient Invanz and daily IV fluid infusion will be utilized to improve her status. The case has been discussed with the insurance company reviewer. They agree that she would do well to have her outpatient antibiotic therapy targeting both the group B strep and her ESBL E. coli. In the prudence of daily intravenous infusion of fluids to ensure that she does not become dehydrated and try to avoid further hospitalization. Current Visit: Yes Status: Acute Code(s): A41.9 - SEPSIS, UNSPECIFIED ORGANISM SNOMED Code(s): 67047199 (2) Urinary tract infection Current Visit: Yes Status: Acute Code(s): N39.0 - URINARY TRACT INFECTION, SITE NOT SPECIFIED SNOMED Code(s): 41748774
[2018-03-24 07:32] LABS: Basophils % (A) 1 %; Eosinophils # (A) 0.2 k/uL (0-0.7); Eosinophils % (A) 3 %; HCT 36.9 % (34.0-46.0); HGB 11.9 gm/dL (11.4-16.0); Lymphocytes # (A) 1.8 k/uL (1.0-4.8); Lymphocytes % (A) 25 %; MCH 28.1 pg (25.0-35.0); MCHC 32.3 g/dL (31.0-37.0); Mean Platelet Volume 6.8; Monocytes # (A) 0.4 k/uL (0-1.0); Monocytes % (A) 5 %; Neutrophils # (A) 4.7 k/uL (1.3-7.7); Neutrophils % (A) 65 %; Platelet Count 302 k/uL (150-450); RBC 4.25 m/uL (3.80-5.40); RDW 13.7 % (11.5-15.5); WBC 7.2 k/uL (3.8-10.6)
[2018-03-24] MEDS: LEVOTHYROXINE 50 MCG TAB PO SCH (07:42)
[2018-03-24] MEDS: LEVOTHYROXINE 100 MCG TAB PO SCH (07:42)
[2018-03-24 08:09] LABS: ALT 22 U/L (9-52); AST 15 U/L (14-36); Albumin 3.5 g/dL (3.5-5.0); Alkaline Phosphatase 86 U/L (38-126); Anion Gap 15 mmol/L; Blood Urea Nitrogen 9 mg/dL (7-17); Calcium 9.3 mg/dL (8.4-10.2); Carbon Dioxide 16 mmol/L (22-30); Chloride 111 mmol/L (98-107); Glucose 105 mg/dL (74-99); Sodium 142 mmol/L (137-145); Total Bilirubin 0.2 mg/dL (0.2-1.3)
[2018-03-24 08:20] LABS: Glucose,Whole Blood 105 mg/dL (75-99)
[2018-03-24] MEDS: INSULIN ASPART 100 UNIT/ML 1 ML 10 ML VIAL SQ SCH ×4 (09:48→20:59)
[2018-03-24] MEDS: ERTAPENEM 1 GM in SODIUM CHLORIDE 0.9% 50 ML IVPB SCH (09:53)
[2018-03-24] MEDS: METOCLOPRAMIDE 10 MG TAB PO SCH ×4 (09:54→21:06)
[2018-03-24] MEDS: TOPIRAMATE 25 MG TAB PO SCH ×2 (09:54→21:05)
[2018-03-24] MEDS: FERROUS SULFATE 325 MG TAB PO SCH ×2 (09:54→21:06)
[2018-03-24] MEDS: FAMOTIDINE 20 MG TAB PO SCH ×2 (09:55→21:06)
[2018-03-24] MEDS: LOSARTAN 50 MG TAB PO SCH (09:55)
[2018-03-24] MEDS: METOPROLOL SUCCINATE (ER) 100 MG TAB.ER.24H PO SCH (09:55)
[2018-03-24] MEDS: SODIUM CHLORIDE 0.9% 1,000 ML IV SCH (09:56)
[2018-03-24] MEDS: HYDROmorphone 2 MG TAB PO PRN ×2 (09:57→21:06)
[2018-03-24 11:57] LABS: Glucose,Whole Blood 110 mg/dL (75-99)
--- NOTE | 2018-03-24 14:57 | P.DS ---
Providers Date of admission: 03/22/18 18:06 Expected date of discharge: 03/24/18 Attending physician: Maryellen Joel Consults: 03/21/18 16:26 Consult Physician Stat Consulting Provider: Jerson Hansen Reason/Comments: sepsis Do you want consulting provider notified?: Yes Primary care physician: Maryellen Marycruz [facility] Course: Discharge diagnosis 1. UTI with sepsis present on admission. Urine culture growing strept agalactiae Group B. Infectious diseases recommending Invanz 1 g IV daily for 14 days the midline 2. History of mitochondrial syndrome, affecting her immune system 3. History of lupus anticoagulant disorder. Anticoagulated with Xarelto 4. Hypothyroidism 5. Insulin-dependent diabetes mellitus: Blood sugars are stable. Continue his current medications Hospital course 37-year-old female who presented to [facility] emergency room with a chief complaint of dysuria and the right flank pain, patient was recently admitted to [facility] with similar symptoms she was discharged on Tuesday at that time her urine culture was clean. 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 Patient had a recent admission on February 02 which time she was treated for E. coli ESBL UTI with ertapenem. She was discharged home on a 14 day course in the midline in the right arm. She completed her course of antibiotics and the midline was removed. She had [facility] care and [facility] infusion in place. Patient was readmitted and discharged on March 18. At that time her urine culture showed skin and genital radha and she was not discharged on antibiotics. She states that Tuesday she was having symptoms again including dysuria, right lower quadrant, right flank pain, fever up to 101, headache and nausea and vomiting. She was unable to get an appointment with her PCP until Tuesday and ended up coming into [facility] emergency center for evaluation. She has been afebrile, white count 15.6, heart rate 119, blood pressure 200/106 which is now improved. Lactic acid was 3.4 and repeat down to 0.9. Urinalysis was brown, cloudy, leukoesterase moderate, nitrate negative, wbc's 44, bacteria few, epithelial cells 8. HCG was not detected. Patient was started on ertapenem and admitted to the medical floor, urine culture is in progress. Patient was treated for UTI. Started on Invanz in the emergency room. Patient was seen by infectious disease. Urine culture grew strep agalactiae Group B. Infectious diseases recommending 14 more days of IV Invanz. Patient's urinary symptoms are showing improvement. White count has normalized. Patient has remained afebrile. Patient is medically stable for discharge. She's been cleared by infectious disease for discharge as well. Patient needs a prior authorization for her the tubing that is needed for the IV antibiotics. At this point we are awaiting the insurance prior authorization. Discussed with nursing staff the patient is stable for discharge when she has all the appropriate to being and equipment needed for her IV antibiotics. Patient artery has been midline IV access inserted. I performed an examination of the patient and discussed their management with the physician Founder And Chief Executive Officer. I have reviewed the Physician Founder And Chief Executive Officer's notes and agree with the documented findings and plan of care Patient Condition at Discharge: Stable Plan - Discharge Summary Discharge Rx Participant: Yes New Discharge Prescriptions: New Ertapenem [INVanz] 1 gm IVPB Q24H #14 bag Non-Formulary Drug [Non Formulary Drug] 1 each IV DAILY #14 misc Continue Cyanocobalamin [Vitamin B-12] 2,000 mcg PO HS Ferrous Sulfate [Iron (65 MG Elemental)] 325 mg PO BID tiZANidine [Zanaflex] 8 mg PO HS Rivaroxaban [Xarelto] 20 mg PO HS Metoclopramide [Reglan] 10 mg PO ACHS Levothyroxine Sodium [Synthroid] 200 mcg PO DAILY Levothyroxine Sodium [Synthroid] 50 mcg PO DAILY Topiramate [Topamax] 75 mg PO BID Insulin Aspart [NovoLOG Flexpen] See Protocol SQ AC-TID Trimethobenzamide HCl [Tigan] 300 mg PO TID PRN PRN Reason: Nausea Ondansetron [Zofran] 8 mg PO Q6HR PRN PRN Reason: Nausea And Vomiting Metoprolol Succinate (ER) [Toprol XL] 100 mg PO DAILY Ranitidine HCl 150 mg PO BID HYDROmorphone [Dilaudid] 2 mg PO Q4HR PRN #60 tab PRN Reason: Moderate Pain Losartan [Cozaar] 50 mg PO DAILY Insulin Glargine [Lantus] 35 unit SQ HS Discharge Medication List Cyanocobalamin [Vitamin B-12] 2,000 mcg PO HS 01/25/16 [History] Ferrous Sulfate [Iron (65 MG Elemental)] 325 mg PO BID 07/14/16 [History] Rivaroxaban [Xarelto] 20 mg PO HS 03/09/17 [History] tiZANidine [Zanaflex] 8 mg PO HS 03/09/17 [History] Levothyroxine Sodium [Synthroid] 50 mcg PO DAILY 07/29/17 [History] Levothyroxine Sodium [Synthroid] 200 mcg PO DAILY 07/29/17 [History] Metoclopramide [Reglan] 10 mg PO ACHS 07/29/17 [History] Insulin Aspart [NovoLOG Flexpen] See Protocol SQ AC-TID 09/13/17 [History] Topiramate [Topamax] 75 mg PO BID 09/13/17 [History] Ondansetron [Zofran] 8 mg PO Q6HR PRN 09/25/17 [History] Trimethobenzamide HCl [Tigan] 300 mg PO TID PRN 09/25/17 [History] Metoprolol Succinate (ER) [Toprol XL] 100 mg PO DAILY 10/24/17 [History] Ranitidine HCl 150 mg PO BID 12/17/17 [History] HYDROmorphone [Dilaudid] 2 mg PO Q4HR PRN #60 tab 01/05/18 [Rx] Insulin Glargine [Lantus] 35 unit SQ HS 03/15/18 [History] Losartan [Cozaar] 50 mg PO DAILY 03/15/18 [History] Ertapenem [INVanz] 1 gm IVPB Q24H #14 bag 03/23/18 [Rx] Non-Formulary Drug [Non Formulary Drug] 1 each IV DAILY #14 misc 03/23/18 [Rx] Follow up Appointment(s)/Referral(s): Maryellen Joel MD [Primary Care Provider] - 1 Week Ambulatory/Diagnostic Orders: Basic Metabolic Panel [LAB.AMB] Location: Determined By Patient Complete Blood Count w/diff [LAB.AMB] Location: Determined By Patient Activity/Diet/Wound Care/Special Instructions: Diet: diabetic Activity: as tolerated Patient can be discharged home when she has all the equipment to receive her IV antibiotics. Discharge Disposition: HOME WITH HOME HEALTH SERVICES
[2018-03-24 17:15] LABS: Glucose,Whole Blood 103 mg/dL (75-99)
[2018-03-24] MEDS: ONDANSETRON 4 MG TAB PO PRN (18:51)
[2018-03-24 20:37] LABS: Glucose,Whole Blood 184 mg/dL (75-99)
[2018-03-24] MEDS: INSULIN DETEMIR 100 UNIT/ML 10 ML VIAL SQ SCH (20:58)
[2018-03-24] MEDS: CYANOCOBALAMIN 500 MCG TAB PO SCH (21:06)
[2018-03-24] MEDS: RIVAROXABAN 20 MG TAB PO SCH (21:06)
[2018-03-24] MEDS: tiZANidine 4 MG TAB PO SCH (21:07)
--- NOTE | 2018-03-25 00:43 | P.PN ---
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 She also has a history of hemiplegic migraines. Patient had a recent admission on February 02 which time she was treated for E. coli ESBL UTI with ertapenem. She was discharged home on a 14 day course in the midline in the right arm. She completed her course of antibiotics and the midline was removed. She had [place] home care and [facility] infusion in place. Patient was readmitted and discharged on March 18. At that time her urine culture showed skin and genital radha and she was not discharged on antibiotics. She states that Tuesday she was having symptoms again including dysuria, right lower quadrant, right flank pain, fever up to 101, headache and nausea and vomiting. She was unable to get an appointment with her PCP until Tuesday and ended up coming into [facility] emergency center for evaluation. She has been afebrile, white count 15.6, heart rate 119, blood pressure 200/106 which is now improved. Lactic acid was 3.4 and repeat down to 0.9. Urinalysis was brown, cloudy, leukoesterase moderate, nitrate negative, wbc's 44, bacteria few, epithelial cells 8. HCG was not detected. Patient was started on ertapenem and admitted to the [facility] floor. A urine culture is in progress 03/23/2018 patient continues to have some improvement. After hydration and antibiotic therapy her nausea and abdominal pain is improved. She's now had 4 meals in the last 4 attempts which is considerably improved over the last 2 weeks. 03/24/2018 patient doesn't feel quite as good today as she has over the last day or so. But has not been taking her Tigan. Suggest that she does so that her nausea remains under good control. Doing well with current antibiotic therapy and hydration. We have discussed the need for outpatient antibiotic therapy and fluids with the insurance company apparently has approval, there is difficulties having her to being covered for home. Case management is diligently working. Objective - Vital Signs Vital signs: Vital Signs Temp 98.2 F 03/24/18 20:06 Pulse 80 03/24/18 20:06 Resp 16 03/24/18 21:18 BP 107/65 03/24/18 20:06 Pulse Ox 97 03/24/18 20:06 Intake & Output 03/24/18 03/24/18 03/25/18 06:59 18:59 06:59 Intake Total 590 847 630 Balance 590 847 630 Intake: Intake, IV Titration 300 Amount Sodium Chloride 0.9% 1, 300 000 ml @ 75 mls/hr IV . [id number] [facility] Rx#:[id number] Oral 590 847 330 Other: Voiding Method Toilet Toilet Toilet # Voids 2 1 2 # Bowel Movements 1 # Emes[place] 0 - Exam Gen: This is a 37-year-old female patient. She is sitting up in bed and appears to be very comfortable and in no acute distress. HEENT: Head is atraumatic, normocephalic. Pupils equal, round. Sclerae is anicteric. Oral mucous membranes are slightly dry. NECK: Supple. No JVD. No lymphadenopathy. No thyromegaly. LUNGS: Clear to auscultation. No wheezes or rhonchi. No intercostal retractions. HEART: Regular rate and rhythm. No murmur. ABDOMEN: Soft. Bowel sounds are present. No masses. Tenderness to the right lower quadrant as well as CVA tenderness on the right and mild on left. EXTREMITIES: No pedal edema. No calf tenderness. Dorsalis pedis +2 bilaterally. NEUROLOGICAL: Patient is awake, alert and oriented x3. - Labs CBC & Chem 7: 03/24/18 07:13 03/24/18 07:13 Labs: Abnormal Lab Results - Last 24 Hours (Table) 03/24/18 03/24/18 03/24/18 Range/Units 07:13 08:18 11:49 Chloride 111 H (98-107) mmol/L Carbon Dioxide 16 L (22-30) mmol/L Glucose 105 H (74-99) mg/dL POC Glucose (mg/dL) 105 H 110 H (75-99) mg/dL Total Protein 6.0 L (6.3-8.2) g/dL 03/24/18 03/24/18 Range/Units 17:13 20:31 Chloride (98-107) mmol/L Carbon Dioxide (22-30) mmol/L Glucose (74-99) mg/dL POC Glucose (mg/dL) 103 H 184 H (75-99) mg/dL Total Protein (6.3-8.2) g/dL Laboratory Results WBC 7.2 k/uL (3.8-10.6) 03/24/18 07:13 RBC 4.25 m/uL (3.80-5.40) 03/24/18 07:13 Hgb 11.9 gm/dL (11.4-16.0) 03/24/18 07:13 Hct 36.9 % (34.0-46.0) 03/24/18 07:13 MCV 87.0 fL (80.0-100.0) 03/24/18 07:13 MCH 28.1 pg (25.0-35.0) 03/24/18 07:13 MCHC 32.3 g/dL (31.0-37.0) 03/24/18 07:13 RDW 13.7 % (11.5-15.5) 03/24/18 07:13 Plt Count 302 k/uL (150-450) 03/24/18 07:13 Neutrophils % 65 % 03/24/18 07:13 Lymphocytes % 25 % 03/24/18 07:13 Monocytes % 5 % 03/24/18 07:13 Eosinophils % 3 % 03/24/18 07:13 Basophils % 1 % 03/24/18 07:13 Neutrophils # 4.7 k/uL (1.3-7.7) 03/24/18 07:13 Lymphocytes # 1.8 k/uL (1.0-4.8) 03/24/18 07:13 Monocytes # 0.4 k/uL (0-1.0) 03/24/18 07:13 Eosinophils # 0.2 k/uL (0-0.7) 03/24/18 07:13 Basophils # 0.0 k/uL (0-0.2) 03/24/18 07:13 Sodium 142 mmol/L (137-145) 03/24/18 07:13 Potassium 4.0 mmol/L (3.5-5.1) 03/24/18 07:13 Chloride 111 mmol/L (98-107) H 03/24/18 07:13 Carbon Dioxide 16 mmol/L (22-30) L 03/24/18 07:13 Anion Gap 15 mmol/L 03/24/18 07:13 BUN 9 mg/dL (7-17) 03/24/18 07:13 Creatinine 0.54 mg/dL (0.52-1.04) 03/24/18 07:13 Est GFR (CKD-EPI)AfAm >90 (>60 ml/min/1.73 sqM) 03/24/18 07:13 Est GFR (CKD-EPI)NonAf >90 (>60 ml/min/1.73 sqM) 03/24/18 07:13 Glucose 105 mg/dL (74-99) H 03/24/18 07:13 POC Glucose (mg/dL) 184 mg/dL (75-99) H 03/24/18 20:31 POC Glu Boating Safety Officer ID Alyssa Espinal 03/24/18 20:[address] Glu mg/dL 163 03/21/18 14:56 Hemoglobin A1c 7.3 % (4.0-6.0) H 03/21/18 14:56 Lactic Ac Sepsis Rflx Y 03/21/18 15:59 Plasma Lactic Acid Joce 0.9 mmol/L (0.7-2.0) 03/21/18 19:14 Calcium 9.3 mg/dL (8.4-10.2) 03/24/18 07:13 Total Bilirubin 0.2 mg/dL (0.2-1.3) 03/24/18 07:13 AST 15 U/L (14-36) 03/24/18 07:13 ALT 22 U/L (9-52) 03/24/18 07:13 Alkaline Phosphatase 86 U/L (38-126) 03/24/18 07:13 Total Protein 6.0 g/dL (6.3-8.2) L 03/24/18 07:13 Albumin 3.5 g/dL (3.5-5.0) 03/24/18 07:13 Amylase 46 U/L (30-110) 03/21/18 14:56 Lipase 90 U/L (23-300) 03/21/18 14:56 Urine Color Brown 03/21/18 14:56 Urine Appearance Cloudy (Clear) H 03/21/18 14:56 Urine pH 5.0 (5.0-8.0) 03/21/18 14:56 Ur Specific [place] 1.022 (1.001-1.035) 03/21/18 14:56 Urine Protein 1+ (Negative) H 03/21/18 14:56 Urine Glucose (UA) Negative (Negative) 03/21/18 14:56 Urine Ketones Negative (Negative) 03/21/18 14:56 Urine Blood Negative (Negative) 03/21/18 14:56 Urine Nitrite Negative (Negative) 03/21/18 14:56 Urine Bilirubin Negative (Negative) 03/21/18 14:56 Urine Urobilinogen <2.0 mg/dL (<2.0) 03/21/18 14:56 Ur Leukocyte Esterase Moderate (Negative) H 03/21/18 14:56 Urine RBC 1 /hpf (0-5) 03/21/18 14:56 Urine WBC 44 /hpf (0-5) H 03/21/18 14:56 Ur Squamous Epith Cells 8 /hpf (0-4) H 03/21/18 14:56 Amorphous Sediment Occasional /hpf (None) H 03/21/18 14:56 Urine Bacteria Few /hpf (None) H 03/21/18 14:56 Hyaline Casts 30 /lpf (0-2) H 03/21/18 14:56 Urine Mucus Many /hpf (None) H 03/21/18 14:56 Urine HCG, Qual Not Detected (Not Detectd) 03/21/18 14:56 Microbiology 03/21/18 14:56 Urine,Clean Catch Urine Culture - Final Strep agalactiae - (group b) Assessment and Plan (1) Sepsis Narrative/Plan: 03/23/2018 The patient is feeling slightly better since coming to hospital with fluid resuscitation and initiation of antibiotic therapy. The patient does have mitochondrial disease and rapidly developed lactic acidosis when she becomes ill. She has been able to eat her meals today which is the best she's done many days. Plan will be for outpatient intravenous antibiotic therapy. Midline catheter to be placed outpatient Invanz and daily IV fluid infusion will be utilized to improve her status. The case has been discussed with the [email or web address] reviewer. They agree that she would do well to have her outpatient antibiotic therapy targeting both the group B strep and her ESBL E. coli. In the prudence of daily intravenous infusion of fluids to ensure that she does not become dehydrated and try to avoid further hospitalization. 03/24/2018 H and overall is improved from admission. Doesn't feel quite as well as she has a last few days but has not been taking antirheumatic. Strongly suggest that she is taking her Tigan on a schedule. Continue to ingest her high-protein meals. Continue with current antibiotic therapy with Invanz 1 g daily. Have arranged for a liter of fluids on a daily basis to help her with her significant chronic dehydration issues related to her nausea and emesis. Overall hope is to prevent dehydration improve her infection resolve her infection and keep her out of hospital for a longer period of time. Current Visit: Yes Status: Acute Code(s): A41.9 - SEPSIS, UNSPECIFIED ORGANISM SNOMED Code(s): 85684911 (2) Urinary tract infection Current Visit: Yes Status: Acute Code(s): N39.0 - URINARY TRACT INFECTION, SITE NOT SPECIFIED SNOMED Code(s): 30246729
[2018-03-25] MEDS: SODIUM CHLORIDE 0.9% 1,000 ML IV SCH (06:02)
[2018-03-25 07:00] LABS: Glucose,Whole Blood 104 mg/dL (75-99)
[2018-03-25 08:21] VITALS: BP 133/68; PULSE 87; RESP 14; TEMP 98.1
[2018-03-25] MEDS: INSULIN ASPART 100 UNIT/ML 1 ML 10 ML VIAL SQ SCH (08:23)
[2018-03-25] MEDS: TOPIRAMATE 25 MG TAB PO SCH (08:25)
[2018-03-25] MEDS: FERROUS SULFATE 325 MG TAB PO SCH (08:25)
[2018-03-25] MEDS: FAMOTIDINE 20 MG TAB PO SCH (08:25)
[2018-03-25] MEDS: METOPROLOL SUCCINATE (ER) 100 MG TAB.ER.24H PO SCH (08:25)
[2018-03-25] MEDS: LEVOTHYROXINE 50 MCG TAB PO SCH (08:25)
[2018-03-25] MEDS: METOCLOPRAMIDE 10 MG TAB PO SCH (08:25)
[2018-03-25] MEDS: LOSARTAN 50 MG TAB PO SCH (08:25)
[2018-03-25] MEDS: LEVOTHYROXINE 100 MCG TAB PO SCH (08:25)
[2018-03-25 08:26] LABS: Basophils % (A) 0 %; Eosinophils # (A) 0.2 k/uL (0-0.7); Eosinophils % (A) 3 %; HGB 13.1 gm/dL (11.4-16.0); Lymphocytes # (A) 1.9 k/uL (1.0-4.8); Lymphocytes % (A) 23 %; MCH 27.8 pg (25.0-35.0); MCHC 33.5 g/dL (31.0-37.0); MCV 82.8 fL (80.0-100.0); Mean Platelet Volume 7.4; Monocytes # (A) 0.5 k/uL (0-1.0); Monocytes % (A) 6 %; Neutrophils # (A) 5.7 k/uL (1.3-7.7); Neutrophils % (A) 66 %; Platelet Count 364 k/uL (150-450); RDW 13.9 % (11.5-15.5); WBC 8.5 k/uL (3.8-10.6)
[2018-03-25] MEDS: ERTAPENEM 1 GM in SODIUM CHLORIDE 0.9% 50 ML IVPB SCH (08:39)
[2018-03-25 08:42] LABS: ALT 21 U/L (9-52); AST 22 U/L (14-36); Alkaline Phosphatase 94 U/L (38-126); Anion Gap 19 mmol/L; Blood Urea Nitrogen 10 mg/dL (7-17); Calcium 9.9 mg/dL (8.4-10.2); Carbon Dioxide 15 mmol/L (22-30); Chloride 110 mmol/L (98-107); Glucose 125 mg/dL (74-99); Potassium 4.4 mmol/L (3.5-5.1); Sodium 144 mmol/L (137-145); Total Bilirubin 0.3 mg/dL (0.2-1.3); Total Protein 6.6 g/dL (6.3-8.2)
[2018-03-25] MEDS: ONDANSETRON 4 MG TAB PO PRN (09:30)
== END 2018-03-25 11:40 | disposition home health service (06) | DRG 872 ==
LOC: EC 13:45 → 3SUR 16:26 → OBSVTOIN 03-22 18:06
PROVIDERS: ADMIT Internal Medicine; ATTEND Internal Medicine
DX: A40.1 Sepsis due to streptococcus, group B (principal); N39.0 Urinary tract infection, site not specified; E88.40 Mitochondrial metabolism disorder, unspecified; D68.62 Lupus anticoagulant syndrome; Q21.1 Atrial septal defect; E87.2 Acidosis; K31.84 Gastroparesis; G43.409 Hemiplegic migraine, not intractable, without status migrainosus; E11.43 Type 2 diabetes mellitus with diabetic autonomic (poly)neuropathy; E03.9 Hypothyroidism, unspecified; E86.0 Dehydration; G47.419 Narcolepsy without cataplexy; D51.0 Vitamin B12 deficiency anemia due to intrinsic factor deficiency; G90.1 Familial dysautonomia [Riley-Day]; I95.1 Orthostatic hypotension; F31.9 Bipolar disorder, unspecified; E28.2 Polycystic ovarian syndrome; Z87.440 Personal history of urinary (tract) infections; Z79.01 Long term (current) use of anticoagulants; Z79.890 Hormone replacement therapy; Z79.4 Long term (current) use of insulin; Z79.899 Other long term (current) drug therapy; Z86.718 Personal history of other venous thrombosis and embolism; Z86.73 Personal history of transient ischemic attack (TIA), and cerebral infarction without residual deficits; Z99.3 Dependence on wheelchair; Z91.5 Personal history of self-harm; Z88.2 Allergy status to sulfonamides; Z88.7 Allergy status to serum and vaccine; Z88.8 Allergy status to other drugs, medicaments and biological substances; Z83.3 Family history of diabetes mellitus; Z82.49 Family history of ischemic heart disease and other diseases of the circulatory system; Z83.49 Family history of other endocrine, nutritional and metabolic diseases
CPT/HCPCS: 0; 36415; 80053; 81001; 81025; 82150; 83036; 83605; 83690; 85025; 87086; 96361; 96374; 99285

== ENCOUNTER 2018-03-26 19:56 | Inpatient (IN) | payer MEDICARE, OTHER ==
[2018-03-26] MEDS ORDERED: SODIUM CHLORIDE 0.9% 2,000 ML IV ONE (20:46)
[2018-03-26] MEDS ORDERED: KETOROLAC 30 MG/ML 1 ML VIAL IVP STA (20:46)
[2018-03-26] MEDS ORDERED: ACETAMINOPHEN TAB 500 MG TAB PO STA (20:46)
[2018-03-26 21:10] LABS: Basophils % (A) 0 %; Eosinophils # (A) 0.2 k/uL (0-0.7); Eosinophils % (A) 3 %; HCT 38.4 % (34.0-46.0); HGB 13.4 gm/dL (11.4-16.0); Lymphocytes # (A) 1.9 k/uL (1.0-4.8); Lymphocytes % (A) 21 %; MCHC 34.9 g/dL (31.0-37.0); MCV 83.3 fL (80.0-100.0); Mean Platelet Volume 7.1; Monocytes # (A) 0.4 k/uL (0-1.0); Monocytes % (A) 5 %; Neutrophils # (A) 6.2 k/uL (1.3-7.7); Neutrophils % (A) 70 %; Platelet Count 351 k/uL (150-450); RBC 4.61 m/uL (3.80-5.40); RDW 14.1 % (11.5-15.5); WBC 8.9 k/uL (3.8-10.6)
[2018-03-26 21:19] LABS: ALT 26 U/L (9-52); AST 24 U/L (14-36); Albumin 4.3 g/dL (3.5-5.0); Alkaline Phosphatase 110 U/L (38-126); Anion Gap 18 mmol/L; Blood Urea Nitrogen 9 mg/dL (7-17); Carbon Dioxide 17 mmol/L (22-30); Chloride 108 mmol/L (98-107); Glucose 212 mg/dL (74-99); Potassium 4.1 mmol/L (3.5-5.1); Sodium 143 mmol/L (137-145); Total Bilirubin 0.2 mg/dL (0.2-1.3)
[2018-03-26 22:05] LABS: Appearance,Urine Clear (Clear); Bilirubin,Urine Negative (Negative); Blood,Urine Negative (Negative); Color,Urine Yellow; Glucose,Urine (UA) Negative (Negative); Ketones,Urine Negative (Negative); Leukocyte Esterase,Urine Negative (Negative); Nitrite,Urine Negative (Negative); PH, Urine 6.5 (5.0-8.0); Protein,Urine Negative (Negative); Specific Gravity,Urine 1.017 (1.001-1.035); Urobilinogen,Urine <2.0 mg/dL (<2.0)
[2018-03-26] MEDS ORDERED: NALOXONE 0.4 MG/ML 1 ML VIAL IV PRN (22:34)
[2018-03-26] MEDS ORDERED: ACETAMINOPHEN TAB 325 MG TAB PO PRN (22:34)
[2018-03-26] MEDS ORDERED: ONDANSETRON 4 MG/2 ML VIAL IVP PRN (22:34)
[2018-03-26] MEDS ORDERED: VANCOMYCIN 2,000 MG in SODIUM CHLORIDE 0.9% 500 ML IVPB STA (22:34)
--- NOTE | 2018-03-26 22:44 | ED ---
General Adult HPI - General Chief complaint: Skin/Abscess/Foreign Body Stated complaint: Back Rash Time Seen by Provider: 03/26/18 20:30 Source: patient Mode of arrival: ambulatory Limitations: no limitations - History of Present Illness Initial comments: Patient is a 37-year-old female presents with a chief complaint of rash and fever. The patient was recently discharged from the hospital yesterday when she was admitted for urosepsis. The patient is growing out strep. Her urine. Midline was placed and she was sent home with instructions for daily ertapenem infusion and saline bolus infusion. The patient cannot identify any inciting incidents of her rash. No aggravating or alleviating factors. The patient states that it has grown in size since this morning. She states that her rash is painful and itching. There are no other rashes onerous for body. She has a significant history of MRSA skin infections. - Related Data Home Medications Medication Instructions Recorded Confirmed Cyanocobalamin [Vitamin B-12] 2,000 mcg PO HS 01/25/16 03/21/18 Ferrous Sulfate [Iron (65 MG 325 mg PO BID 07/14/16 03/21/18 Elemental)] Rivaroxaban [Xarelto] 20 mg PO HS 03/09/17 03/21/18 tiZANidine [Zanaflex] 8 mg PO HS 03/09/17 03/21/18 Levothyroxine Sodium [Synthroid] 50 mcg PO DAILY 07/29/17 03/21/18 Levothyroxine Sodium [Synthroid] 200 mcg PO DAILY 07/29/17 03/21/18 Metoclopramide [Reglan] 10 mg PO ACHS 07/29/17 03/21/18 Insulin Aspart [NovoLOG Flexpen] See Protocol SQ AC-TID 09/13/17 03/21/18 Topiramate [Topamax] 75 mg PO BID 09/13/17 03/21/18 Ondansetron [Zofran] 8 mg PO Q6HR PRN 09/25/17 03/21/18 Trimethobenzamide HCl [Tigan] 300 mg PO TID PRN 09/25/17 03/21/18 Metoprolol Succinate (ER) [Toprol 100 mg PO DAILY 10/24/17 03/21/18 XL] Ranitidine HCl 150 mg PO BID 12/17/17 03/21/18 Insulin Glargine [Lantus] 35 unit SQ HS 03/15/18 03/21/18 Losartan [Cozaar] 50 mg PO DAILY 03/15/18 03/21/18 Previous Rx's Medication Instructions Recorded HYDROmorphone [Dilaudid] 2 mg PO Q4HR PRN #60 tab 01/05/18 Ertapenem [INVanz] 1 gm IVPB Q24H #14 bag 03/23/18 Non-Formulary Drug [Non Formulary 1 each IV DAILY #14 misc 03/23/18 Drug] Allergies Allergy/AdvReac Type Severity Reaction Status Date / Time barium sulfate Allergy Anaphylaxis Verified 03/26/18 20:29 diphtheria, pertussis, Allergy Unknown Verified 03/26/18 20:29 tetanus vacc doxepin [Doxepin] Allergy Anaphylaxis Verified 03/26/18 20:29 influenza virus vaccine, Allergy Anaphylaxis Verified 03/26/18 20:29 specific [Influenza Virus Vacc,Specific] promethazine HCl Allergy Anaphylaxis Verified 03/26/18 20:29 [From Phenergan] doxycycline AdvReac Nausea & Verified 03/26/18 20:29 Vomiting & Diarrhea Pertussis Vaccines AdvReac fever/seizu Verified 03/26/18 20:29 re pseudoephedrine AdvReac Chest Pain Verified 03/26/18 20:29 pseudoephedrine HCl AdvReac Chest Pain Verified 03/26/18 20:29 [From Sudafed] sulfamethoxazole AdvReac Nausea & Verified 03/26/18 20:29 [From Bactrim] Vomiting trimethoprim [From Bactrim] AdvReac Nausea & Verified 03/26/18 20:29 Vomiting Review of Systems ROS Statement: Those systems with pertinent positive or pertinent negative responses have been documented in the HPI. ROS Other: All systems not noted in ROS Statement are negative. Constitutional: Reports: fever Skin: Reports: rash Past Medical History Past Medical History: Chest Pain / Angina, CVA/TIA, Diabetes Mellitus, Deep Vein Thrombosis (DVT), Neurologic Disorder, Syncope, Thyroid Disorder Additional Past Medical History / Comment(s): Dysautonomia-progressive neurological disorder, lupus/LUPUS ANTICOAGULANTS, 2003 CVA without residual, ana maria's disease, lymphedema Lt arm d/t DVTs , v-tach, pituitary microadenoma. "mitochondrial disease". patent foramen ovale, narcolepsy, gastropareis, IDDM type II, uti's, falls, orthostatic hypotension/syncope, migraines with hemiplegia, pernicious anemia, polycystic ovarian syndrome, neuropathy bilateral legs/fee-mild, uterine ablation August 2015/patient no longer has periods-had uterine ablation uti's. History of Any Multi-Drug Resistant Organisms: ESBL, MRSA Date of last positivie culture/infection: 03/09/17,02/01/18 ESBL MDRO Source:: LEFT ARM, URINE ECOLI Past Surgical History: Uterine Ablation Additional Past Surgical History / Comment(s): colonscopy/egd, angie, stress test. Past Anesthesia/Blood Transfusion Reactions: No Reported Reaction Additional Past Anesthesia/Blood Transfusion Reaction / Comment(s): patient states "It takes a lot of anesthesia for my body to react". Pt has received blood in past without reaction. Past Psychological History: Bipolar, Depression Smoking Status: Never smoker Past Alcohol Use History: None Reported Past Drug Use History: None Reported - Past Family History Brother(s) Family Medical History: Diabetes Mellitus, Hyperlipidemia, Hypertension Additional Family Medical History / Comment(s): Patient states she has 1 brother with no major medical problems. Father Family Medical History: Diabetes Mellitus, Hyperlipidemia, Hypertension Additional Family Medical History / Comment(s): DAD IS 70 YEARS OLD. Patient states she does not have any contact with her father and does not know his medical history. Mother Family Medical History: Chest Pain / Angina, CVA/TIA, Hyperlipidemia, Hypertension Additional Family Medical History / Comment(s): AGE 62 HAS LUPUS, blood pressure swings high to low General Exam Limitations: no limitations General appearance: alert, in no apparent distress Head exam: Present: atraumatic, normocephalic Eye exam: Present: normal appearance ENT exam: Present: normal exam Neck exam: Present: normal inspection Respiratory exam: Present: normal lung sounds bilaterally. Absent: respiratory distress, wheezes Cardiovascular Exam: Present: normal rhythm, tachycardia GI/Abdominal exam: Present: soft. Absent: distended, tenderness Rectal exam: Present: deferred Extremities exam: Present: normal inspection Back exam: Present: normal inspection. Absent: CVA tenderness (R), CVA tenderness (L) Neurological exam: Present: alert, oriented X3, CN II-XII intact Psychiatric exam: Present: normal affect, normal mood Skin exam: Present: warm, dry, intact, rash (patient has a rash on her back in the distripution of "wings." rash is flat, red, and peeling. there is no warmth or hoh sign noted. rash is bilateral and extends from t4 to the flanks. ) Course Vital Signs 03/26/18 03/26/18 20:26 22:25 Temperature 100.5 F H 98.3 F Pulse Rate 124 H 110 H Respiratory 18 18 Rate Blood Pressure 140/95 138/65 O2 Sat by Pulse 97 18 L Oximetry Medical Decision Making - Medical Decision Making Patient presents with a chief complaint of fever and rash. On initial evaluation, patient is mildly febrile and tachycardic. Patient otherwise appears well. Examination of the rash is as described in the physical exam. Patient was given 2 L of IV fluid. I discussed this presentation with Dr. Hansen, the patient's infectious disease doctor who saw her on her last admission. The patient is currently on ertapenem, does not have a known ALLERGY to ertapenem, and denies any other changes to medications, soaps, or detergents. Patient has a history of MRSA skin infections and though this is somewhat not characteristic of a typical MRSA infection, Dr. Hansen agrees that we should brought encourage and start the patient on vancomycin. Blood evaluation of this patient is grossly normal except for a mild lactic acidosis of 2.4. At this time, it is unclear whether or not this is a side of decreased organ perfusion versus a finding secondary to the patient's known mitochondrial disease. This case was further discussed with Dr. Joel who accepts admission for observation and further workup. I discussed the findings and care plan with the patient, she is agreeable. Urine cultures will be sent for further evaluation. - Lab Data Result diagrams: 03/26/18 20:57 03/26/18 20:57 Lab Results 03/26/18 03/26/18 03/26/18 Range/Units 20:57 20:57 20:57 WBC 8.9 (3.8-10.6) k/uL RBC 4.61 (3.80-5.40) m/uL Hgb 13.4 (11.4-16.0) gm/dL Hct 38.4 (34.0-46.0) % MCV 83.3 (80.0-100.0) fL MCH 29.0 (25.0-35.0) pg MCHC 34.9 (31.0-37.0) g/dL RDW 14.1 (11.5-15.5) % Plt Count 351 (150-450) k/uL Neutrophils % 70 % Lymphocytes % 21 % Monocytes % 5 % Eosinophils % 3 % Basophils % 0 % Neutrophils # 6.2 (1.3-7.7) k/uL Lymphocytes # 1.9 (1.0-4.8) k/uL Monocytes # 0.4 (0-1.0) k/uL Eosinophils # 0.2 (0-0.7) k/uL Basophils # 0.0 (0-0.2) k/uL Sodium 143 (137-145) mmol/L Potassium 4.1 (3.5-5.1) mmol/L Chloride 108 H (98-107) mmol/L Carbon Dioxide 17 L (22-30) mmol/L Anion Gap 18 mmol/L BUN 9 (7-17) mg/dL Creatinine 0.50 L (0.52-1.04) mg/dL Est GFR (CKD-EPI)AfAm >90 (>60 ml/min/1.73 sqM) Est GFR (CKD-EPI)NonAf >90 (>60 ml/min/1.73 sqM) Glucose 212 H (74-99) mg/dL Plasma Lactic Acid Joce 2.3 H* (0.7-2.0) mmol/L Calcium 10.0 (8.4-10.2) mg/dL Total Bilirubin 0.2 (0.2-1.3) mg/dL AST 24 (14-36) U/L ALT 26 (9-52) U/L Alkaline Phosphatase 110 (38-126) U/L Total Protein 7.0 (6.3-8.2) g/dL Albumin 4.3 (3.5-5.0) g/dL Urine Color Urine Appearance (Clear) Urine pH (5.0-8.0) Ur Specific [place] (1.001-1.035) Urine Protein (Negative) Urine Glucose (UA) (Negative) Urine Ketones (Negative) Urine Blood (Negative) Urine Nitrite (Negative) Urine Bilirubin (Negative) Urine Urobilinogen (<2.0) mg/dL Ur Leukocyte Esterase (Negative) 05/06/18 Range/Units 21:50 WBC (3.8-10.6) k/uL RBC (3.80-5.40) m/uL Hgb (11.4-16.0) gm/dL Hct (34.0-46.0) % MCV (80.0-100.0) fL MCH (25.0-35.0) pg MCHC (31.0-37.0) g/dL RDW (11.5-15.5) % Plt Count (150-450) k/uL Neutrophils % % Lymphocytes % % Monocytes % % Eosinophils % % Basophils % % Neutrophils # (1.3-7.7) k/uL Lymphocytes # (1.0-4.8) k/uL Monocytes # (0-1.0) k/uL Eosinophils # (0-0.7) k/uL Basophils # (0-0.2) k/uL Sodium (137-145) mmol/L Potassium (3.5-5.1) mmol/L Chloride (98-107) mmol/L Carbon Dioxide (22-30) mmol/L Anion Gap mmol/L BUN (7-17) mg/dL Creatinine (0.52-1.04) mg/dL Est GFR (CKD-EPI)AfAm (>60 ml/min/1.73 sqM) Est GFR (CKD-EPI)NonAf (>60 ml/min/1.73 sqM) Glucose (74-99) mg/dL Plasma Lactic Acid Joce (0.7-2.0) mmol/L Calcium (8.4-10.2) mg/dL Total Bilirubin (0.2-1.3) mg/dL AST (14-36) U/L ALT (9-52) U/L Alkaline Phosphatase (38-126) U/L Total Protein (6.3-8.2) g/dL Albumin (3.5-5.0) g/dL Urine Color Yellow Urine Appearance Clear (Clear) Urine pH 6.5 (5.0-8.0) Ur Specific [place] 1.017 (1.001-1.035) Urine Protein Negative (Negative) Urine Glucose (UA) Negative (Negative) Urine Ketones Negative (Negative) Urine Blood Negative (Negative) Urine Nitrite Negative (Negative) Urine Bilirubin Negative (Negative) Urine Urobilinogen <2.0 (<2.0) mg/dL Ur Leukocyte Esterase Negative (Negative) Disposition Clinical Impression: Dermatitis, Lactic acidosis, Fever, Tachycardia, SIRS (systemic inflammatory response syndrome) Disposition: ADMITTED IP TO THIS [facility] Condition: Good Is patient prescribed a controlled substance at d/c from ED?: No Referrals: Maryellen Joel MD [Primary Care Provider] - 1-2 days Decision to Admit Reason: Admit from EC - Out of Hospital Transfer - Req. Specs Out of Hospital Transfer - Requested Specifics: Other Non-Acute
[2018-03-26] MEDS: SODIUM CHLORIDE 0.9% 1,000 ML IV SCH (23:23)
[2018-03-27] MEDS: diphenhydrAMINE 50 MG CAP PO PRN (01:03)
[2018-03-27 07:24] LABS: Glucose,Whole Blood 135 mg/dL (75-99)
[2018-03-27] MEDS: KETOROLAC 30 MG/ML 1 ML VIAL IVP PRN ×2 (08:39→16:12)
[2018-03-27] MEDS ORDERED: ONDANSETRON 4 MG TAB PO PRN (08:53)
[2018-03-27] MEDS ORDERED: TRIMETHOBENZAMIDE 300 MG CAP PO PRN (08:53)
[2018-03-27] MEDS ORDERED: [UNRECOGNIZED DRUG - OTHER] IV SCH (09:00)
[2018-03-27 10:11] LABS: Basophils % (A) 0 %; Eosinophils # (A) 0.2 k/uL (0-0.7); Eosinophils % (A) 3 %; HCT 38.7 % (34.0-46.0); HGB 12.4 gm/dL (11.4-16.0); Lymphocytes # (A) 1.7 k/uL (1.0-4.8); Lymphocytes % (A) 22 %; MCH 27.3 pg (25.0-35.0); MCV 85.3 fL (80.0-100.0); Mean Platelet Volume 7.2; Monocytes # (A) 0.6 k/uL (0-1.0); Monocytes % (A) 8 %; Neutrophils % (A) 66 %; Platelet Count 331 k/uL (150-450); RBC 4.53 m/uL (3.80-5.40); RDW 14.1 % (11.5-15.5); WBC 7.6 k/uL (3.8-10.6)
[2018-03-27 10:31] LABS: Anion Gap 16 mmol/L; Blood Urea Nitrogen 9 mg/dL (7-17); Calcium 9.6 mg/dL (8.4-10.2); Carbon Dioxide 17 mmol/L (22-30); Chloride 110 mmol/L (98-107); Glucose 153 mg/dL (74-99); Potassium 4.4 mmol/L (3.5-5.1); Sodium 143 mmol/L (137-145)
[2018-03-27 11:48] LABS: Glucose,Whole Blood 133 mg/dL (75-99)
[2018-03-27] MEDS: LEVOTHYROXINE 50 MCG TAB PO SCH (12:01)
[2018-03-27] MEDS: HYDROmorphone 2 MG TAB PO PRN (12:01)
[2018-03-27] MEDS: TOPIRAMATE 25 MG TAB PO SCH ×2 (12:01→22:03)
[2018-03-27] MEDS: FERROUS SULFATE 325 MG TAB PO SCH ×2 (12:02→17:55)
[2018-03-27] MEDS: METOCLOPRAMIDE 10 MG TAB PO SCH ×3 (12:02→22:03)
[2018-03-27] MEDS: FAMOTIDINE 20 MG TAB PO SCH ×2 (12:02→22:03)
[2018-03-27] MEDS: LEVOTHYROXINE 100 MCG TAB PO SCH (12:02)
[2018-03-27] MEDS: LOSARTAN 50 MG TAB PO SCH (12:03)
[2018-03-27] MEDS: METOPROLOL SUCCINATE (ER) 100 MG TAB.ER.24H PO SCH (12:03)
--- NOTE | 2018-03-27 12:56 | P.HPIM ---
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 She is anticoagulated with Xarelto. Patient has had multiple admissions for UTI with sepsis. She has needed to be treated 3 times now with IV antibiotics at time of discharge. She has been on IV Invanz before with no reaction. She was just recently discharged on Tuesday from [facility] with UTI with sepsis. At that time urine culture had grown strep agalactiae group B. She is discharged home with Invanz 1 g IV daily for 14 days via her midline. Patient states she was feeling well and then at home the following day started to develop a painful rash on her back. The rash also was very itchy. And continue to increase in size even with taking Benadryl. She also had been feeling feverish. On admission she had a low-grade temp of 100.5 and was tachycardic with a heart rate of 124. She was then readmitted into the hospital infectious disease has been consulted. Invanz was discontinued and patient placed on vancomycin in the emergency room. Patient denies any chest pain or shortness breath. Denies any nausea or vomiting. Denies any bowel movement changes or urinary symptoms. Patient denies any new lotions or detergents or any other contact to that back. There is no other rash anywhere on the body. Review of Systems Please refer to HPI otherwise unremarkable Past Medical History Past Medical History: Chest Pain / Angina, CVA/TIA, Diabetes Mellitus, Deep Vein Thrombosis (DVT), Neurologic Disorder, Syncope, Thyroid Disorder Additional Past Medical History / Comment(s): Dysautonomia-progressive neurological disorder, lupus/LUPUS ANTICOAGULANTS, 2003 CVA without residual, ana maria's disease, lymphedema Lt arm d/t DVTs , v-tach, pituitary microadenoma. "mitochondrial disease". patent foramen ovale, narcolepsy, gastropareis, IDDM type II, uti's, falls, orthostatic hypotension/syncope, migraines with hemiplegia, pernicious anemia, polycystic ovarian syndrome, neuropathy bilateral legs/fee-mild, uterine ablation August 2015/patient no longer has periods-had uterine ablation uti's. History of Any Multi-Drug Resistant Organisms: ESBL, MRSA Date of last positivie culture/infection: 03/09/17,02/01/18 ESBL MDRO Source:: LEFT ARM, URINE ECOLI Past Surgical History: Uterine Ablation Additional Past Surgical History / Comment(s): colonscopy/egd, angie, stress test. Past Anesthesia/Blood Transfusion Reactions: No Reported Reaction Additional Past Anesthesia/Blood Transfusion Reaction / Comment(s): patient states "It takes a lot of anesthesia for my body to react". Pt has received blood in past without reaction. Past Psychological History: Bipolar, Depression Additional Psychological History / Comment(s): Pt resides with her mom. She can walk short distances(room to room at home). She uses a wheelchair as well. She has a walker but doesn't use it. She does not drive she gets to appts by bus or cab. She has hx of suicide attempt in 2014 but states that depression is stable at this time. No animal exposures. No tobacco or alcohol use. Single without children. Does not relate to other family members with her genetic disorder Smoking Status: Never smoker Past Alcohol Use History: None Reported Additional Past Alcohol Use History / Comment(s): Patient is a lifelong nonsmoker. She denies any medical marijuana, marijuana, street drug or alcohol use. She resides with her mom. She can walk short distances and otherwise uses a wheelchair. She has a walker. She does not drive but usually gets appointments by [facility]. She has history of suicide attempt in 2014 but states depression is stable. No animal exposures. Patient is single without children. Patient denies any family members with her genetic disorder. Past Drug Use History: None Reported - Past Family History Brother(s) Family Medical History: Diabetes Mellitus, Hyperlipidemia, Hypertension Additional Family Medical History / Comment(s): Patient states she has 1 brother with no major medical problems. Father Family Medical History: Diabetes Mellitus, Hyperlipidemia, Hypertension Additional Family Medical History / Comment(s): DAD IS 70 YEARS OLD. Patient states she does not have any contact with her father and does not know his medical history. Mother Family Medical History: Chest Pain / Angina, CVA/TIA, Hyperlipidemia, Hypertension Additional Family Medical History / Comment(s): AGE 62 HAS LUPUS, blood pressure swings high to low Medications and Allergies Home Medications Medication Instructions Recorded Confirmed Type Cyanocobalamin [Vitamin B-12] 2,000 mcg PO HS 01/25/16 03/27/18 History Ferrous Sulfate [Iron (65 MG 325 mg PO BID 07/14/16 03/27/18 History Elemental)] Rivaroxaban [Xarelto] 20 mg PO HS 03/09/17 03/27/18 History tiZANidine [Zanaflex] 8 mg PO HS 03/09/17 03/27/18 History Levothyroxine Sodium [Synthroid] 50 mcg PO DAILY 07/29/17 03/27/18 History Levothyroxine Sodium [Synthroid] 200 mcg PO DAILY 07/29/17 03/27/18 History Metoclopramide [Reglan] 10 mg PO ACHS 07/29/17 03/27/18 History Insulin Aspart [NovoLOG Flexpen] See Protocol SQ AC-TID 09/13/17 03/27/18 History Topiramate [Topamax] 75 mg PO BID 09/13/17 03/27/18 History Ondansetron [Zofran] 8 mg PO Q6HR PRN 09/25/17 03/27/18 History Trimethobenzamide HCl [Tigan] 300 mg PO TID PRN 09/25/17 03/27/18 History Metoprolol Succinate (ER) [Toprol 100 mg PO DAILY 10/24/17 03/27/18 History XL] Ranitidine HCl 150 mg PO BID 12/17/17 03/27/18 History HYDROmorphone [Dilaudid] 2 mg PO Q4HR PRN #60 tab 01/05/18 03/27/18 Rx Insulin Glargine [Lantus] 35 unit SQ HS 03/15/18 03/27/18 History Losartan [Cozaar] 50 mg PO DAILY 03/15/18 03/27/18 History Ertapenem [INVanz] 1 gm IVPB Q24H #14 bag 03/23/18 03/27/18 Rx Non-Formulary Drug [Non Formulary 1 each IV DAILY #14 misc 03/23/18 03/27/18 Rx Drug] Allergies Allergy/AdvReac Type Severity Reaction Status Date / Time barium sulfate Allergy Anaphylaxis Verified 03/27/18 08:04 diphtheria, pertussis, Allergy Unknown Verified 03/27/18 08:04 tetanus vacc doxepin [Doxepin] Allergy Anaphylaxis Verified 03/27/18 08:04 influenza virus vaccine, Allergy Anaphylaxis Verified 03/27/18 08:04 specific [Influenza Virus Vacc,Specific] promethazine HCl Allergy Anaphylaxis Verified 03/27/18 08:04 [From Phenergan] doxycycline AdvReac Nausea & Verified 03/27/18 08:04 Vomiting & Diarrhea Pertussis Vaccines AdvReac fever/seizu Verified 03/27/18 08:04 re pseudoephedrine AdvReac Chest Pain Verified 03/27/18 08:04 pseudoephedrine HCl AdvReac Chest Pain Verified 03/27/18 08:04 [From Sudafed] sulfamethoxazole AdvReac Nausea & Verified 03/27/18 08:04 [From Bactrim] Vomiting trimethoprim [From Bactrim] AdvReac Nausea & Verified 03/27/18 08:04 Vomiting Physical Exam Vitals: Vital Signs Temp Pulse Pulse Resp BP BP Pulse Ox 03/27/18 08:00 80 16 03/27/18 05:40 97.4 F L 80 16 121/66 98 03/27/18 00:29 97.9 F 87 16 138/91 98 03/26/18 23:29 97.8 F 881 H 8 L 134/73 98 03/26/18 22:25 98.3 F 110 H 18 138/65 18 L 03/26/18 20:26 100.5 F H 124 H 18 140/95 97 Intake and Output 03/26/18 03/27/18 03/27/18 22:59 06:59 14:59 Intake Total 2900 Balance 2900 Intake: Intake, IV Titration 2900 Amount Sodium Chloride 0.9% 1, 400 000 ml @ 50 mls/hr IV . Q20H [facility] Rx#:[id number] Sodium Chloride 0.9% 2, 2000 000 ml @ 999 mls/hr IV . Q2H1M [facility] Rx#:[id number] Vancomycin 2,000 mg In 500 Sodium Chloride 0.9% 500 ml @ 167 mls/hr IVPB ONCE STA Rx#:[id number] Other: Weight 106.594 kg Head normocephalic Neck supple Lungs clear to auscultation bilaterally no wheezing or crackles Heart regular rate and rhythm S1-S2, no rub or gallop Abdomen is soft nontender nondistended positive bowel sounds no hepatosplenomegaly Extremities no edema Neuro alert and orientated to 3 Skin: On patient's back there is a large red rash. It's about 12 inches in length by 9 or 10 inches wide. It is red with scaling of the skin. Tender with palpation warm to touch. No evidence of any blisters. Results CBC & Chem 7: 03/27/18 09:31 03/27/18 09:31 Labs: Abnormal Lab Results - Last 24 Hours (Table) 03/26/18 03/26/18 03/27/18 Range/Units 20:57 20:57 07:18 Chloride 108 H (98-107) mmol/L Carbon Dioxide 17 L (22-30) mmol/L Creatinine 0.50 L (0.52-1.04) mg/dL Glucose 212 H (74-99) mg/dL POC Glucose (mg/dL) 135 H (75-99) mg/dL Plasma Lactic Acid Joce 2.3 H* (0.7-2.0) mmol/L 03/27/18 03/27/18 Range/Units 09:31 11:43 Chloride 110 H (98-107) mmol/L Carbon Dioxide 17 L (22-30) mmol/L Creatinine 0.50 L (0.52-1.04) mg/dL Glucose 153 H (74-99) mg/dL POC Glucose (mg/dL) 133 H (75-99) mg/dL Plasma Lactic Acid Joce (0.7-2.0) mmol/L Microbiology - Last 24 Hours (Table) 03/26/18 21:50 Urine Culture - Preliminary Urine,Voided Thrombosis Risk Factor Assmnt - Choose All That Apply Any of the Below Risk Factors Present?: Yes Each Factor Represents 1 point: Obesity (BMI >25), Sepsis (< 1month) Other Risk Factors: Yes Each Risk Factor Represents 3 Points: Family history of DVT/PE, History of DVT/ PE, Positive Lupus Anticoagulant Other congenital or acquired thrombophilia - If yes, enter type in comment: No Thrombosis Risk Factor Assessment Total Risk Factor Score: 11 Thrombosis Risk Factor Assessment Level: High Risk Assessment and Plan Assessment: 1. Dermatitis on the back: Possibly related to the Invanz. Invanz discontinued for now. Patient be evaluated by infectious disease. Started on vancomycin in the ER 2. Sepsis present on admission: Patient had a temp of 100.5, tachycardic heart rate of 124 lactic acid 2.3. Possibly related to patient's rash. Blood culture and urine culture pending. Continue IV fluids 3. Recent UTI with sepsis on previous admission: Currently being treated with Invanz. 4. 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 History of lupus anticoagulant disorder. Anticoagulated with Xarelto 6. Insulin-dependent diabetes mellitus: Blood sugars stable. Resume home medications 7. Hypothyroidism GI prophylaxis Pepcid and DVT prophylaxis Xarelto Time with Patient: Greater than 30 (Greater than 50% of the total time spent in counseling and coordination of care.I performed an examination of the patient and discussed their management with the physician Regrinder. I have reviewed the Physician Regrinder's notes and agree with the documented findings and plan of care)
[2018-03-27 17:10] LABS: Glucose,Whole Blood 143 mg/dL (75-99)
[2018-03-27] MEDS: INSULIN ASPART 100 UNIT/ML 1 ML 10 ML VIAL SQ SCH ×2 (17:54→22:03)
[2018-03-27] MEDS ORDERED: tiZANidine 4 MG TAB PO SCH (21:00)
[2018-03-27] MEDS ORDERED: INSULIN DETEMIR 100 UNIT/ML 10 ML VIAL SQ SCH (21:00)
[2018-03-27] MEDS ORDERED: RIVAROXABAN 20 MG TAB PO SCH (21:00)
[2018-03-27] MEDS ORDERED: CYANOCOBALAMIN 500 MCG TAB PO SCH (21:00)
[2018-03-27 21:04] LABS: Glucose,Whole Blood 131 mg/dL (75-99)
[2018-03-27] MEDS ORDERED: VANCOMYCIN IV PER PHARMACY 1 EACH MISC MISCELLANE PRN (21:51)
--- NOTE | 2018-03-27 22:00 | P.CONS ---
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 She also has a history of hemiplegic migraines. Patient had a recent admission on February 02 which time she was treated for E. coli ESBL UTI with ertapenem. She was discharged home on a 14 day course in the midline in the right arm. She completed her course of antibiotics and the midline was removed. She had [facility] care and [facility] infusion in place. Patient was readmitted and discharged on March 18. At that time her urine culture showed skin and genital radha and she was not discharged on antibiotics. She states that Tuesday she was having symptoms again including dysuria, right lower quadrant, right flank pain, fever up to 101, headache and nausea and vomiting. She was unable to get an appointment with her PCP until Tuesday and ended up coming into [facility] emergency center for evaluation. She has been afebrile, white count 15.6, heart rate 119, blood pressure 200/106 which is now improved. Lactic acid was 3.4 and repeat down to 0.9. Urinalysis was brown, cloudy, leukoesterase moderate, nitrate negative, wbc's 44, bacteria few, epithelial cells 8. HCG was not detected. Group B Strep was isolated and the patient was treated with ertapenem which she tolerated well. She was sent home with outpatient intravenous antibiotic therapy and IV fluids to prevent further nausea and emesis. She's been doing well and not having significant nausea and emesis but developed a significant rash on her back. It is large greater than 20 cm in length 14 cm in width pruritic and flaking. There is no evidence of any pustules or vesicles. There is no evidence of any skin sloughing. It is erythematous warm and pruritic. No other areas of rash are noted yet at this time. She otherwise is tolerating the antibiotic therapy well. Her flank pain and urine symptoms were improving. Review of Systems Constitutional: Reports chills, Reports chronic headaches, Reports fever Eyes: denies blurred vision, denies pain Ears, nose, mouth and throat: Reports headache, Denies dental pain, Denies mouth pain, Denies sore throat, Denies vertigo Cardiovascular: Denies chest pain, Denies decreased exercise tolerance, Denies dyspnea on exertion, Denies leg edema, Denies lightheadedness, Denies shortness of breath, Denies syncope Respiratory: Denies cough, Denies cough with sputum, Denies dyspnea, Denies excessive sputum, Denies hemoptysis, Denies home oxygen, Denies wheezing Gastrointestinal: Reports abdominal pain, Reports nausea, Reports vomiting, Denies diarrhea Genitourinary: Reports dysuria, Denies hematuria Musculoskeletal: Denies myalgias Integumentary: No new rashes per the HPI Neurological: Denies numbness, Denies weakness Psychiatric: Denies anxiety, Denies depression Endocrine: Denies fatigue, Denies weight change Past Medical History Past Medical History: Chest Pain / Angina, CVA/TIA, Diabetes Mellitus, Deep Vein Thrombosis (DVT), Neurologic Disorder, Syncope, Thyroid Disorder Additional Past Medical History / Comment(s): Dysautonomia-progressive neurological disorder, lupus/LUPUS ANTICOAGULANTS, 2003 CVA without residual, ana maria's disease, lymphedema Lt arm d/t DVTs , v-tach, pituitary microadenoma. "mitochondrial disease". patent foramen ovale, narcolepsy, gastropareis, IDDM type II, uti's, falls, orthostatic hypotension/syncope, migraines with hemiplegia, pernicious anemia, polycystic ovarian syndrome, neuropathy bilateral legs/fee-mild, uterine ablation August 2015/patient no longer has periods-had uterine ablation uti's. History of Any Multi-Drug Resistant Organisms: ESBL, MRSA Year Discovered:: 03/09/17,02/01/18 ESBL MDRO Source:: LEFT ARM, URINE ECOLI Past Surgical History: Uterine Ablation Additional Past Surgical History / Comment(s): colonscopy/egd, angie, stress test. Past Anesthesia/Blood Transfusion Reactions: No Reported Reaction Additional Past Anesthesia/Blood Transfusion Reaction / Comm: patient states " It takes a lot of anesthesia for my body to react". Pt has received blood in past without reaction. Past Psychological History: Bipolar, Depression Additional Psychological History / Comment(s): Pt resides with her mom. She can walk short distances(room to room at home). She uses a wheelchair as well. She has a walker but doesn't use it. She does not drive she gets to [facility] by bus or cab. She has hx of suicide attempt in 2015 but states that depression is stable at this time. No animal exposures. No tobacco or alcohol use. Single without children. Does not relate to other family members with her genetic disorder Smoking Status: Never smoker Past Alcohol Use History: None Reported Additional Past Alcohol Use History / Comment(s): Patient is a lifelong nonsmoker. She denies any medical marijuana, marijuana, street drug or alcohol use. She resides with her mom. She can walk short distances and otherwise uses a wheelchair. She has a walker. She does not drive but usually gets appointments by [facility]. She has history of suicide attempt in 2015 but states depression is stable. No animal exposures. Patient is single without children. Patient denies any family members with her genetic disorder. Past Drug Use History: None Reported - Past Family History Brother(s) Family Medical History: Diabetes Mellitus, Hyperlipidemia, Hypertension Additional Family Medical History / Comment(s): Patient states she has 1 brother with no major medical problems. Father Family Medical History: Diabetes Mellitus, Hyperlipidemia, Hypertension Additional Family Medical History / Comment(s): DAD IS 70 YEARS OLD. Patient states she does not have any contact with her father and does not know his medical history. Mother Family Medical History: Chest Pain / Angina, CVA/TIA, Hyperlipidemia, Hypertension Additional Family Medical History / Comment(s): AGE 62 HAS LUPUS, blood pressure swings high to low Medications and Allergies Home Medications and Allergies Comment(s): Current Medications Acetaminophen (Tylenol Tab) 650 mg PO Q6HR PRN PRN Reason: Mild Pain or Fever > 100.5 Cyanocobalamin (Vitamin B-12) 2,000 mcg PO [facility] Diphenhydramine HCl (Benadryl) 50 mg PO QID PRN PRN Reason: itching Last Admin: 03/27/18 01:03 Dose: 50 mg Famotidine (Pepcid) 20 mg PO BID [facility] Last Admin: 03/27/18 12:02 Dose: 20 mg Ferrous Sulfate (Feosol) 325 mg PO BID-W/MEALS [facility] Last Admin: 03/27/18 17:55 Dose: 325 mg Hydromorphone HCl (Dilaudid) 2 mg PO Q4HR PRN PRN Reason: Moderate Pain Last Admin: 03/27/18 12:01 Dose: 2 mg Sodium Chloride (Saline 0.9%) 1,000 mls @ 50 mls/hr IV .Q20H [facility] Last Admin: 03/26/18 23:23 Dose: 50 mls/hr Insulin Aspart (Novolog) 0 unit SQ [facility] PRN Reason: Protocol Last Admin: 03/27/18 17:54 Dose: 1 unit Insulin Detemir (Levemir) 35 unit SQ [facility] Ketorolac Tromethamine (Toradol) 30 mg IVP Q6HR PRN PRN Reason: Moderate Pain Stop: 03/31/18 22:35 Last Admin: 03/27/18 16:12 Dose: 30 mg Levothyroxine Sodium (Synthroid) 200 mcg PO 0630 [facility] Last Admin: 03/27/18 12:02 Dose: 200 mcg Levothyroxine Sodium (Synthroid) 50 mcg PO 0630 [facility] Last Admin: 03/27/18 12:01 Dose: 50 mcg Losartan Potassium (Cozaar) 50 mg PO DAILY [facility] Last Admin: 03/27/18 12:03 Dose: 50 mg Metoclopramide HCl (Reglan) 10 mg PO [facility] Last Admin: 03/27/18 17:55 Dose: 10 mg Metoprolol Succinate (Toprol Xl) 100 mg PO DAILY [facility] Last Admin: 03/27/18 12:03 Dose: 100 mg Miscellaneous Information (Pharmacy To Dose Iv Vancomycin) 1 each [facility]ISCE[facility]ANE DIRECTED PRN PRN Reason: Per Protocol Naloxone HCl (Narcan) 0.2 mg IV Q2M PRN PRN Reason: Opioid Reversal Ondansetron HCl (Zofran) 4 mg IVP Q8HR PRN PRN Reason: Nausea And Vomiting Ondansetron HCl (Zofran) 8 mg PO Q6HR PRN PRN Reason: Nausea And Vomiting Rivaroxaban (Xarelto) 20 mg PO HS [facility] Tizanidine HCl (Zanaflex) 8 mg PO HS [facility] Topiramate (Topamax) 75 mg PO BID [facility] Last Admin: 03/27/18 12:01 Dose: 75 mg Trimethobenzamide HCl (Tigan) 300 mg PO TID PRN PRN Reason: Nausea Home Medications Medication Instructions Recorded Confirmed Type Cyanocobalamin [Vitamin B-12] 2,000 mcg PO 01/25/16 03/27/18 History Ferrous Sulfate [Iron (65 MG 325 mg PO BID 07/14/16 03/27/18 History Elemental)] Rivaroxaban [Xarelto] 20 mg PO HS 03/09/17 03/27/18 History tiZANidine [Zanaflex] 8 mg PO HS 03/09/17 03/27/18 History Levothyroxine Sodium [Synthroid] 50 mcg PO DAILY 07/29/17 03/27/18 History Levothyroxine Sodium [Synthroid] 200 mcg PO DAILY 07/29/17 03/27/18 History Metoclopramide [Reglan] 10 mg PO ACHS 07/29/17 03/27/18 History Insulin Aspart [NovoLOG Flexpen] See Protocol SQ AC-TID 09/13/17 03/27/18 History Topiramate [Topamax] 75 mg PO BID 09/13/17 03/27/18 History Ondansetron [Zofran] 8 mg PO Q6HR PRN 09/25/17 03/27/18 History Trimethobenzamide HCl [Tigan] 300 mg PO TID PRN 09/25/17 03/27/18 History Metoprolol Succinate (ER) [Toprol 100 mg PO DAILY 10/24/17 03/27/18 History XL] Ranitidine HCl 150 mg PO BID 12/17/17 03/27/18 History HYDROmorphone [Dilaudid] 2 mg PO Q4HR PRN #60 tab 01/05/18 03/27/18 Rx Insulin Glargine [Lantus] 35 unit SQ HS 03/15/18 03/27/18 History Losartan [Cozaar] 50 mg PO DAILY 03/15/18 03/27/18 History Ertapenem [INVanz] 1 gm IVPB Q24H #14 bag 03/23/18 03/27/18 Rx Non-Formulary Drug [Non Formulary 1 each IV DAILY #14 misc 03/23/18 03/27/18 Rx Drug] Allergies Allergy/AdvReac Type Severity Reaction Status Date / Time barium sulfate Allergy Anaphylaxis Verified 03/27/18 08:04 diphtheria, pertussis, Allergy Unknown Verified 03/27/18 08:04 tetanus vacc doxepin [Doxepin] Allergy Anaphylaxis Verified 03/27/18 08:04 influenza virus vaccine, Allergy Anaphylaxis Verified 03/27/18 08:04 specific [Influenza Virus Vacc,Specific] promethazine HCl Allergy Anaphylaxis Verified 03/27/18 08:04 [From Phenergan] doxycycline AdvReac Nausea & Verified 03/27/18 08:04 Vomiting & Diarrhea Pertussis Vaccines AdvReac fever/seizu Verified 03/27/18 08:04 re pseudoephedrine AdvReac Chest Pain Verified 03/27/18 08:04 pseudoephedrine HCl AdvReac Chest Pain Verified 03/27/18 08:04 [From Sudafed] sulfamethoxazole AdvReac Nausea & Verified 03/27/18 08:04 [From Bactrim] Vomiting trimethoprim [From Bactrim] AdvReac Nausea & Verified 03/27/18 08:04 Vomiting Physical Exam Vitals: Vital Signs Temp Pulse Pulse Resp BP BP Pulse Ox 03/27/18 16:00 83 16 03/27/18 15:00 98.7 F 83 16 121/81 95 03/27/18 08:00 80 16 03/27/18 05:40 97.4 F L 80 16 121/66 98 03/27/18 00:29 97.9 F 87 16 138/91 98 03/26/18 23:29 97.8 F 881 H 8 L 134/73 98 03/26/18 22:25 98.3 F 110 H 18 138/65 18 L Intake and Output 03/27/18 03/27/18 03/27/18 06:59 14:59 22:59 Intake Total 2900 Balance 2900 Intake: Intake, IV Titration 2900 Amount Sodium Chloride 0.9% 1, 400 000 ml @ 50 mls/hr IV . Q20H [facility] Rx#:[id number] Sodium Chloride 0.9% 2, 2000 000 ml @ 999 mls/hr IV . Q2H1M ONE Rx#:[id number] Vancomycin 2,000 mg In 500 Sodium Chloride 0.9% 500 ml @ 167 mls/hr IVPB ONCE STA Rx#:[id number] Other: # Voids 3 Gen: This is a 37-year-old female patient. She is sitting up in bed and appears to be very comfortable and in no acute distress. HEENT: Head is atraumatic, normocephalic. Pupils equal, round. Sclerae is anicteric. Oral mucous membranes are slightly dry. NECK: Supple. No JVD. No lymphadenopathy. No thyromegaly. LUNGS: Clear to auscultation. No wheezes or rhonchi. No intercostal retractions. HEART: Regular rate and rhythm. No murmur. ABDOMEN: Soft. Bowel sounds are present. No masses. Tenderness to the right lower quadrant as well as CVA tenderness on the right and mild on left. EXTREMITIES: No pedal edema. No calf tenderness. Dorsalis pedis +2 bilaterally. NEUROLOGICAL: Patient is awake, alert and oriented x3 Skin new rash on her back very large as noted in the HPI it is dry and flaky. No vesicles, no pustules, no skin sloughing, not exquisitely tender but is pruritic. Results CBC & Chem 7: 03/27/18 09:31 03/27/18 09:31 Labs: Abnormal Lab Results - Last 24 Hours (Table) 03/27/18 03/27/18 03/27/18 Range/Units : 09:31 11:43 Chloride 110 H (98-107) mmol/L Carbon Dioxide 17 L (22-30) mmol/L Creatinine 0.50 L (0.52-1.04) mg/dL Glucose 153 H (74-99) mg/dL POC Glucose (mg/dL) 135 H 133 H (75-99) mg/dL 03/27/18 03/27/18 Range/Units 17:07 21:03 Chloride (98-107) mmol/L Carbon Dioxide (22-30) mmol/L Creatinine (0.52-1.04) mg/dL Glucose (74-99) mg/dL POC Glucose (mg/dL) 143 H 131 H (75-99) mg/dL Microbiology - Last 24 Hours (Table) 03/26/18 21:50 Urine Culture - Preliminary Urine,Voided Laboratory Results WBC 7.6 k/uL (3.8-10.6) 03/27/18 09: RBC 4.53 m/uL (3.80-5.40) 03/27/18 09:31 Hgb 12.4 gm/dL (11.4-16.0) 03/27/18 09: Hct 38.7 % (34.0-46.0) 03/27/18 09: MCV 85.3 fL (80.0-100.0) 03/27/18 09: MCH 27.3 pg (25.0-35.0) 03/27/18: MCHC 32.0 g/dL (31.0-37.0) 03/27/18 09: RDW 14.1 % (11.5-15.5) 03/27/18 09: Plt Count 331 k/uL (150-450) 03/27/18 09: Neutrophils % 66 % 03/27/18 09: Lymphocytes % 22 % 03/27/18 09: Monocytes % 8 % 03/27/18: Eosinophils % 3 % 03/27/18: Basophils % 0 % 03/27/18: Neutrophils # 5.0 k/uL (1.3-7.7) 03/27/18 09: Lymphocytes # 1.7 k/uL (1.0-4.8) 03/27/18: Monocytes # 0.6 k/uL (0-1.0) 03/27/18: Eosinophils # 0.2 k/uL (0-0.7) 03/27/18 09: Basophils # 0.0 k/uL (0-0.2) 03/27/18 09: Sodium 143 mmol/L (137-145) 03/27/18 09: Potassium 4.4 mmol/L (3.5-5.1) 03/27/18 09: Chloride 110 mmol/L (98-107) H 03/27/18: Carbon Dioxide 17 mmol/L (22-30) L 03/27/18: Anion Gap 16 mmol/L 03/27/18 09: BUN 9 mg/dL (7-17) 03/27/18 09: Creatinine 0.50 mg/dL (0.52-1.04) L 03/27/18 09: Est GFR (CKD-EPI)AfAm >90 (>60 ml/min/1.73 sqM) 03/27/18: Est GFR (CKD-EPI)NonAf >90 (>60 ml/min/1.73 sqM) 03/27/18: Glucose 153 mg/dL (74-99) H 03/27/18 09:31 POC Glucose (mg/dL) 131 mg/dL (75-99) H 03/27/18 21:03 POC Glu Performance Specialist ID Jena Fernandez 03/27/18 21:03 Lactic Ac Sepsis Rflx Y 03/26/18 21:25 Plasma Lactic Acid Joce 1.7 mmol/L (0.7-2.0) 03/27/18 00:48 Calcium 9.6 mg/dL (8.4-10.2) 03/27/18 09:31 Total Bilirubin 0.2 mg/dL (0.2-1.3) 03/26/18 20:57 AST 24 U/L (14-36) 03/26/18 20:57 ALT 26 U/L (9-52) 03/26/18 20:57 Alkaline Phosphatase 110 U/L (38-126) 03/26/18 20:57 Total Protein 7.0 g/dL (6.3-8.2) 03/26/18 20:57 Albumin 4.3 g/dL (3.5-5.0) 03/26/18 20:57 Urine Color Yellow 03/26/18 21:50 Urine Appearance Clear (Clear) 03/26/18 21:50 Urine pH 6.5 (5.0-8.0) 03/26/18 21:50 Ur Specific Holstein 1.017 (1.001-1.035) 03/26/18 21:50 Urine Protein Negative (Negative) 03/26/18 21:50 Urine Glucose (UA) Negative (Negative) 03/26/18 21:50 Urine Ketones Negative (Negative) 03/26/18 21:50 Urine Blood Negative (Negative) 03/26/18 21:50 Urine Nitrite Negative (Negative) 03/26/18 21:50 Urine Bilirubin Negative (Negative) 03/26/18 21:50 Urine Urobilinogen <2.0 mg/dL (<2.0) 03/26/18 21:50 Ur Leukocyte Esterase Negative (Negative) 03/26/18 21:50 Microbiology 03/26/18 21:50 Urine,Voided Urine Culture - Preliminary Assessment and Plan (1) 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 Was recently hospitalized where she was ill with some evidence of a urinary tract infection with group Streptococcus. She was treated with antibiotic therapy and rehydration and had marked improvement of her status. She was sent home with ertapenem as well as IV fluids. Her chronic nausea and emesis within well because she was receiving hydration daily. He had a sudden onset of a pruritic burning rash to her back. Because it worsened she came to Hospital has been admitted. His SMA appears that she has an acute drug eruption likely from the ertapenem. We cannot locate any other new findings. No other medication other than the ertapenem was given. She's not had any creams or ointments applied to the back. She does not use a heating pad. Did not use material such as icy hot or other menthol products. She had no new skin emollients or detergents that she was exposed to. we does appear to be a drug eruption. Ertapenem was discontinued vancomycin is begun. This is going to create great difficulties because she does have a midline catheter. This often has limited viability with vancomycin therapy. We'll attempt to use it for now. Within like to arrange as an outpatient when she is well for a [id number] to be placed by her family surgeon Dr. Pedro. This will require orchestration since she is on Xarelto. Aphakic zinc cream was personally applied to the area of rash and within moments had significant improvement of her discomfort. This should be applied 3 times a day and as needed. Current Visit: Yes Status: Acute Code(s): L27.0 - GEN SKIN ERUPTION DUE TO DRUGS AND MEDS TAKEN INTERNALLY SNOMED Code(s): 09168878
[2018-03-28] MEDS: diphenhydrAMINE 50 MG CAP PO PRN (00:14)
[2018-03-28] MEDS: VANCOMYCIN 1,750 MG in SODIUM CHLORIDE 0.9% 250 ML IVPB SCH ×3 (00:16→15:09)
[2018-03-28] MEDS: SODIUM CHLORIDE 0.9% 1,000 ML IV SCH ×2 (04:49→15:18)
[2018-03-28] MEDS: HYDROmorphone 2 MG TAB PO PRN (06:19)
[2018-03-28] MEDS: LEVOTHYROXINE 50 MCG TAB PO SCH (06:19)
[2018-03-28] MEDS: LEVOTHYROXINE 100 MCG TAB PO SCH (06:19)
[2018-03-28 06:40] VITALS: RESP 16
[2018-03-28 07:02] LABS: Glucose,Whole Blood 112 mg/dL (75-99)
[2018-03-28 08:46] LABS: Basophils % (A) 0 %; Eosinophils # (A) 0.3 k/uL (0-0.7); Eosinophils % (A) 4 %; HCT 34.2 % (34.0-46.0); Lymphocytes % (A) 24 %; MCV 82.7 fL (80.0-100.0); Mean Platelet Volume 7.4; Monocytes # (A) 0.6 k/uL (0-1.0); Monocytes % (A) 7 %; Neutrophils # (A) 5.2 k/uL (1.3-7.7); Neutrophils % (A) 63 %; Platelet Count 291 k/uL (150-450); RBC 4.14 m/uL (3.80-5.40); RDW 13.9 % (11.5-15.5); WBC 8.3 k/uL (3.8-10.6)
[2018-03-28 08:50] LABS: Anion Gap 13 mmol/L; Blood Urea Nitrogen 11 mg/dL (7-17); Calcium 9.4 mg/dL (8.4-10.2); Carbon Dioxide 17 mmol/L (22-30); Chloride 113 mmol/L (98-107); Glucose 101 mg/dL (74-99); Potassium 4.6 mmol/L (3.5-5.1); Sodium 143 mmol/L (137-145)
[2018-03-28] MEDS: FERROUS SULFATE 325 MG TAB PO SCH (09:28)
[2018-03-28] MEDS: INSULIN ASPART 100 UNIT/ML 1 ML 10 ML VIAL SQ SCH ×2 (09:28→12:02)
[2018-03-28] MEDS: LOSARTAN 50 MG TAB PO SCH (09:29)
[2018-03-28] MEDS: METOCLOPRAMIDE 10 MG TAB PO SCH ×2 (09:29→12:57)
[2018-03-28] MEDS: FAMOTIDINE 20 MG TAB PO SCH (09:29)
[2018-03-28] MEDS: TOPIRAMATE 25 MG TAB PO SCH (09:30)
[2018-03-28] MEDS: METOPROLOL SUCCINATE (ER) 100 MG TAB.ER.24H PO SCH (09:30)
[2018-03-28 11:34] LABS: Glucose,Whole Blood 131 mg/dL (75-99)
--- NOTE | 2018-03-28 14:00 | P.DS ---
Providers Date of admission: 03/26/18 22:34 Expected date of discharge: 03/28/18 Attending physician: Maryellen Joel Consults: 03/26/18 22:35 Consult Physician Routine Consulting Provider: Jerson Hansen Consult Reason/Comments: Fever, Rash Do you want consulting provider notified?: Yes Primary care physician: Maryellne Marycruz [facility] Course: Discharge diagnosis 1. Drug eruption dermatitis on the back: Secondary to the Invanz. Invanz discontinued . Patient be evaluated by infectious disease. They have added zinc cream and patient is on Benadryl. 2. Sepsis present on admission: Patient had a temp of 100.5, tachycardic heart rate of 124 lactic acid 2.3. Possibly related to patient's rash. Blood culture negative urine culture contamination 3. Recent UTI with sepsis on previous admission: Currently on IV vancomycin via midline. Dr. Hansen is recommending vancomycin for 12 more days 4. 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 History of lupus anticoagulant disorder. Anticoagulated with Xarelto 6. Insulin-dependent diabetes mellitus: Blood sugars stable. Resume home medications 7. Hypothyroidism Hospital course This is a 37-year-old female with a known past medical history of mitochondrial syndrome that affects her immune system as well as a lupus anticoagulant disorder. She is anticoagulated with Xarelto. Patient has had multiple admissions for UTI with sepsis. She has needed to be treated 3 times now with IV antibiotics at time of discharge. She has been on IV Invanz before with no reaction. She was just recently discharged on Tuesday from [facility] with UTI with sepsis. At that time urine culture had grown strep agalactiae group B. She is discharged home with Invanz 1 g IV daily for 14 days via her midline. Patient states she was feeling well and then at home the following day started to develop a painful rash on her back. The rash also was very itchy. And continue to increase in size even with taking Benadryl. She also had been feeling feverish. On admission she had a low-grade temp of 100.5 and was tachycardic with a heart rate of 124. She was then readmitted into the hospital infectious disease has been consulted. Invanz was discontinued and patient placed on vancomycin in the emergency room. Patient denies any chest pain or shortness breath. Denies any nausea or vomiting. Denies any bowel movement changes or urinary symptoms. Patient denies any new lotions or detergents or any other contact to that back. There is no other rash anywhere on the body. Patient's rash is likely a drug eruption rash from the Invanz. Invanz was discontinued. Patient seen by infectious disease. They've added zinc cream and patient is also receiving Benadryl with some improvement in her symptoms. No further fevers. Infectious disease is recommending vancomycin to be continued for her UTI. Repeat urine culture growing contamination and urinalysis was negative. Blood cultures also negative. Patient is medically stable for discharge. Infectious disease is recommending a port to be placed due to patient's requiring frequent use of long-term IV antibiotics. Patient is medically stable for discharge. Please return for any further details. Patient will be given information to be seen by Dr. Pedro for possible port placement Patient Condition at Discharge: Stable Plan - Discharge Summary Discharge Rx Participant: Yes New Discharge Prescriptions: New Vancomycin 1,750 mg IVPB Q24HR #12 bag diphenhydrAMINE [Benadryl] 50 mg PO TID #9 cap Continue Cyanocobalamin [Vitamin B-12] 2,000 mcg PO HS Ferrous Sulfate [Iron (65 MG Elemental)] 325 mg PO BID tiZANidine [Zanaflex] 8 mg PO HS Rivaroxaban [Xarelto] 20 mg PO HS Metoclopramide [Reglan] 10 mg PO ACHS Levothyroxine Sodium [Synthroid] 200 mcg PO DAILY Levothyroxine Sodium [Synthroid] 50 mcg PO DAILY Topiramate [Topamax] 75 mg PO BID Insulin Aspart [NovoLOG Flexpen] See Protocol SQ AC-TID Trimethobenzamide HCl [Tigan] 300 mg PO TID PRN PRN Reason: Nausea Ondansetron [Zofran] 8 mg PO Q6HR PRN PRN Reason: Nausea And Vomiting Metoprolol Succinate (ER) [Toprol XL] 100 mg PO DAILY Ranitidine HCl 150 mg PO BID HYDROmorphone [Dilaudid] 2 mg PO Q4HR PRN #60 tab PRN Reason: Moderate Pain Losartan [Cozaar] 50 mg PO DAILY Insulin Glargine [Lantus] 35 unit SQ HS Discontinued Ertapenem [INVanz] 1 gm IVPB Q24H #14 bag No Action Non-Formulary Drug [Non Formulary Drug] 1 each IV DAILY #14 misc Discharge Medication List Cyanocobalamin [Vitamin B-12] 2,000 mcg PO HS 01/25/16 [History] Ferrous Sulfate [Iron (65 MG Elemental)] 325 mg PO BID 07/14/16 [History] Rivaroxaban [Xarelto] 20 mg PO HS 03/09/17 [History] tiZANidine [Zanaflex] 8 mg PO HS 03/09/17 [History] Levothyroxine Sodium [Synthroid] 50 mcg PO DAILY 07/29/17 [History] Levothyroxine Sodium [Synthroid] 200 mcg PO DAILY 07/29/17 [History] Metoclopramide [Reglan] 10 mg PO ACHS 07/29/17 [History] Insulin Aspart [NovoLOG Flexpen] See Protocol SQ AC-TID 09/13/17 [History] Topiramate [Topamax] 75 mg PO BID 09/13/17 [History] Ondansetron [Zofran] 8 mg PO Q6HR PRN 09/25/17 [History] Trimethobenzamide HCl [Tigan] 300 mg PO TID PRN 09/25/17 [History] Metoprolol Succinate (ER) [Toprol XL] 100 mg PO DAILY 10/24/17 [History] Ranitidine HCl 150 mg PO BID 12/17/17 [History] HYDROmorphone [Dilaudid] 2 mg PO Q4HR PRN #60 tab 01/05/18 [Rx] Insulin Glargine [Lantus] 35 unit SQ HS 03/15/18 [History] Losartan [Cozaar] 50 mg PO DAILY 03/15/18 [History] Non-Formulary Drug [Non Formulary Drug] 1 each IV DAILY #14 misc 03/23/18 [Rx] Vancomycin 1,750 mg IVPB Q24HR #12 bag 03/28/18 [Rx] diphenhydrAMINE [Benadryl] 50 mg PO TID #9 cap 03/28/18 [Rx] Follow up Appointment(s)/Referral(s): Jerson Hansen MD [STAFF PHYSICIAN] - 1 Week Maryellen Joel MD [Primary Care Provider] - 1 Week Ambulatory/Diagnostic Orders: Basic Metabolic Panel [LAB.AMB] Location: Determined By Patient Complete Blood Count w/diff [LAB.AMB] Location: Determined By Patient Patient Instructions/Handouts: Acute Rash (DC) Activity/Diet/Wound Care/Special Instructions: Cardiac, diabetic diet. Activity as tolerated, fall precautions. Discharge Disposition: HOME WITH HOME HEALTH SERVICES
[2018-03-28 15:29] VITALS: BP 130/83; PULSE 85; TEMP 98.4
--- NOTE | 2018-03-28 21:41 | P.PN ---
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 She also has a history of hemiplegic migraines. Patient had a recent admission on February 02 which time she was treated for E. coli ESBL UTI with ertapenem. She was discharged home on a 14 day course in the midline in the right arm. She completed her course of antibiotics and the midline was removed. She had [facility] care and [facility] infusion in place. Patient was readmitted and discharged on March 18. At that time her urine culture showed skin and genital radha and she was not discharged on antibiotics. She states that Tuesday she was having symptoms again including dysuria, right lower quadrant, right flank pain, fever up to 101, headache and nausea and vomiting. She was unable to get an appointment with her PCP until Tuesday and ended up coming into [facility] emergency center for evaluation. She has been afebrile, white count 15.6, heart rate 119, blood pressure 200/106 which is now improved. Lactic acid was 3.4 and repeat down to 0.9. Urinalysis was brown, cloudy, leukoesterase moderate, nitrate negative, wbc's 44, bacteria few, epithelial cells 8. HCG was not detected. Group B Strep was isolated and the patient was treated with ertapenem which she tolerated well. She was sent home with outpatient intravenous antibiotic therapy and IV fluids to prevent further nausea and emesis. She's been doing well and not having significant nausea and emesis but developed a significant rash on her back. It is large greater than 20 cm in length 14 cm in width pruritic and flaking. There is no evidence of any pustules or vesicles. There is no evidence of any skin sloughing. It is erythematous warm and pruritic. No other areas of rash are noted yet at this time. She otherwise is tolerating the antibiotic therapy well. Her flank pain and urine symptoms were improving. Today rash feels much better and denies much pain , improved overall. Ready for discharge to home with IVABX. Objective - Vital Signs Vital signs: Vital Signs Temp 98.4 F 03/28/18 15:00 Pulse 85 03/28/18 15:00 Resp 16 03/28/18 15:00 BP 130/83 03/28/18 15:00 Pulse Ox 97 03/28/18 15:00 Intake & Output 03/28/18 03/28/18 03/29/18 06:59 18:59 06:59 Other: # Voids 1 2 - Exam Gen: This is a 37-year-old female patient. She is sitting up in bed and appears to be very comfortable and in no acute distress. HEENT: Head is atraumatic, normocephalic. Pupils equal, round. Sclerae is anicteric. Oral mucous membranes are slightly dry. NECK: Supple. No JVD. No lymphadenopathy. No thyromegaly. LUNGS: Clear to auscultation. No wheezes or rhonchi. No intercostal retractions. HEART: Regular rate and rhythm. No murmur. ABDOMEN: Soft. Bowel sounds are present. No masses. Tenderness to the right lower quadrant as well as CVA tenderness on the right and mild on left. EXTREMITIES: No pedal edema. No calf tenderness. Dorsalis pedis +2 bilaterally. NEUROLOGICAL: Patient is awake, alert and oriented x3 Skin new rash on her back very large as noted in the HPI it is improved today the erythema is 80% improved - Labs CBC & Chem 7: 03/28/18 07:35 03/28/18 07:35 Labs: Abnormal Lab Results - Last 24 Hours (Table) 03/28/18 03/28/18 03/28/18 Range/Units 07:00 07:35 11:27 Chloride 113 H (98-107) mmol/L Carbon Dioxide 17 L (22-30) mmol/L Creatinine 0.46 L (0.52-1.04) mg/dL Glucose 101 H (74-99) mg/dL POC Glucose (mg/dL) 112 H 131 H (75-99) mg/dL Microbiology - Last 24 Hours (Table) 03/26/18 21:50 Urine Culture - Final Urine,Voided 03/26/18 20:57 Blood Culture - Preliminary Blood No Growth after 24 hours Laboratory Results WBC 8.3 k/uL (3.8-10.6) 03/28/18 07:35 RBC 4.14 m/uL (3.80-5.40) 03/28/18 07:35 Hgb 12.0 gm/dL (11.4-16.0) 03/28/18 07:35 Hct 34.2 % (34.0-46.0) 03/28/18 07:35 MCV 82.7 fL (80.0-100.0) 03/28/18 07:35 MCH 29.0 pg (25.0-35.0) 03/28/18 07:35 MCHC 35.0 g/dL (31.0-37.0) 03/28/18 07:35 RDW 13.9 % (11.5-15.5) 03/28/18 07:35 Plt Count 291 k/uL (150-450) 03/28/18 07:35 Neutrophils % 63 % 03/28/18 07:35 Lymphocytes % 24 % 03/28/18 07:35 Monocytes % 7 % 03/28/18 07:35 Eosinophils % 4 % 03/28/18 07:35 Basophils % 0 % 03/28/18 07:35 Neutrophils # 5.2 k/uL (1.3-7.7) 03/28/18 07:35 Lymphocytes # 2.0 k/uL (1.0-4.8) 03/28/18 07:35 Monocytes # 0.6 k/uL (0-1.0) 03/28/18 07:35 Eosinophils # 0.3 k/uL (0-0.7) 03/28/18 07:35 Basophils # 0.0 k/uL (0-0.2) 03/28/18 07:35 Sodium 143 mmol/L (137-145) 03/28/18 07:35 Potassium 4.6 mmol/L (3.5-5.1) 03/28/18 07:35 Chloride 113 mmol/L (98-107) H 03/28/18 07:35 Carbon Dioxide 17 mmol/L (22-30) L 03/28/18 07:35 Anion Gap 13 mmol/L 03/28/18 07:35 BUN 11 mg/dL (7-17) 03/28/18 07:35 Creatinine 0.46 mg/dL (0.52-1.04) L 03/28/18 07:35 Est GFR (CKD-EPI)AfAm >90 (>60 ml/min/1.73 sqM) 03/28/18 07:35 Est GFR (CKD-EPI)NonAf >90 (>60 ml/min/1.73 sqM) 03/28/18 07:35 Glucose 101 mg/dL (74-99) H 03/28/18 07:35 POC Glucose (mg/dL) 131 mg/dL (75-99) H 03/28/18 11:27 POC Glu Box Order Person ID Theresa Leigh 03/28/18 11:27 Lactic Ac Sepsis Rflx Y 03/26/18 21:25 Plasma Lactic Acid Joce 1.7 mmol/L (0.7-2.0) 03/27/18 00:48 Calcium 9.4 mg/dL (8.4-10.2) 03/28/18 07:35 Total Bilirubin 0.2 mg/dL (0.2-1.3) 03/26/18 20:57 AST 24 U/L (14-36) 03/26/18 20:57 ALT 26 U/L (9-52) 03/26/18 20:57 Alkaline Phosphatase 110 U/L (38-126) 03/26/18 20:57 Total Protein 7.0 g/dL (6.3-8.2) 03/26/18 20:57 Albumin 4.3 g/dL (3.5-5.0) 03/26/18 20:57 Urine Color Yellow 03/26/18 21:50 Urine Appearance Clear (Clear) 03/26/18 21:50 Urine pH 6.5 (5.0-8.0) 03/26/18 21:50 Ur Specific [place] 1.017 (1.001-1.035) 03/26/18 21:50 Urine Protein Negative (Negative) 03/26/18 21:50 Urine Glucose (UA) Negative (Negative) 03/26/18 21:50 Urine Ketones Negative (Negative) 03/26/18 21:50 Urine Blood Negative (Negative) 03/26/18 21:50 Urine Nitrite Negative (Negative) 03/26/18 21:50 Urine Bilirubin Negative (Negative) 03/26/18 21:50 Urine Urobilinogen <2.0 mg/dL (<2.0) 03/26/18 21:50 Ur Leukocyte Esterase Negative (Negative) 03/26/18 21:50 Microbiology 03/26/18 21:50 Urine,Voided Urine Culture - Final 03/26/18 20:57 Blood Blood Culture - Preliminary No Growth after 24 hours Assessment and Plan (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 Was recently hospitalized where she was ill with some evidence of a urinary tract infection with group Streptococcus. She was treated with antibiotic therapy and rehydration and had marked improvement of her status. She was sent home with ertapenem as well as IV fluids. Her chronic nausea and emesis within well because she was receiving hydration daily. He had a sudden onset of a pruritic burning rash to her back. Because it worsened she came to Hospital has been admitted. His SMA appears that she has an acute drug eruption likely from the ertapenem. We cannot locate any other new findings. No other medication other than the ertapenem was given. She's not had any creams or ointments applied to the back. She does not use a heating pad. Did not use material such as icy hot or other menthol products. She had no new skin emollients or detergents that she was exposed to. we does appear to be a drug eruption. Ertapenem was discontinued vancomycin is begun. This is going to create great difficulties because she does have a midline catheter. This often has limited viability with vancomycin therapy. We'll attempt to use it for now. Within like to arrange as an outpatient when she is well for a [id number] to be placed by her family surgeon Dr. Pedro. This will require orchestration since she is on Xarelto. A layer of zinc cream was personally applied to the area of rash and within moments had significant improvement of her discomfort. This should be applied 3 times a day and as needed. 03/28/2018 patient improved change to Vancomycin, will discharge home with IV vanco and follow up in office at end of therapy, which will be after 4 further days, will use the midline catheter and anticipate should be able to complete the therapy. Will need outpatient infusaport placement once infection improved.Will need arrangement with surgeon and schedule to hold anticoagulant. Status: Acute Code(s): L27.0 - GEN SKIN ERUPTION DUE TO DRUGS AND MEDS TAKEN INTERNALLY SNOMED Code(s): 76396940
[2018-03-29] MEDS ORDERED: VANCOMYCIN TROUGH DUE 1 EACH MISC MISCELLANE ONE (07:00)
== END 2018-03-28 17:17 | disposition home health service (06) | DRG 872 ==
LOC: EC 19:56 → 4MS4W 22:34
PROVIDERS: ADMIT Internal Medicine; ATTEND Internal Medicine
DX: A41.9 Sepsis, unspecified organism (principal); D68.62 Lupus anticoagulant syndrome; E88.40 Mitochondrial metabolism disorder, unspecified; N39.0 Urinary tract infection, site not specified; Q21.1 Atrial septal defect; E28.2 Polycystic ovarian syndrome; F32.9 Major depressive disorder, single episode, unspecified; G47.419 Narcolepsy without cataplexy; L27.1 Localized skin eruption due to drugs and medicaments taken internally; T36.1X5A Adverse effect of cephalosporins and other beta-lactam antibiotics, initial encounter; Y92.009 Unspecified place in unspecified non-institutional (private) residence as the place of occurrence of the external cause; G43.409 Hemiplegic migraine, not intractable, without status migrainosus; E11.40 Type 2 diabetes mellitus with diabetic neuropathy, unspecified; E11.43 Type 2 diabetes mellitus with diabetic autonomic (poly)neuropathy; K31.84 Gastroparesis; E03.9 Hypothyroidism, unspecified; I89.0 Lymphedema, not elsewhere classified; Z91.5 Personal history of self-harm; Z86.73 Personal history of transient ischemic attack (TIA), and cerebral infarction without residual deficits; Z79.01 Long term (current) use of anticoagulants; Z79.4 Long term (current) use of insulin; Z79.890 Hormone replacement therapy; Z79.899 Other long term (current) drug therapy; Z86.14 Personal history of Methicillin resistant Staphylococcus aureus infection; Z88.1 Allergy status to other antibiotic agents; Z88.2 Allergy status to sulfonamides; Z88.7 Allergy status to serum and vaccine; Z88.8 Allergy status to other drugs, medicaments and biological substances; Z86.718 Personal history of other venous thrombosis and embolism; Z87.440 Personal history of urinary (tract) infections; Z91.81 History of falling; Z83.3 Family history of diabetes mellitus; Z82.3 Family history of stroke; Z82.49 Family history of ischemic heart disease and other diseases of the circulatory system; Z84.89 Family history of other specified conditions
CPT/HCPCS: 36415; 80048; 80053; 81003; 83605; 85025; 87040; 87086; 96361; 96365; 96375; 99284

== ENCOUNTER 2018-04-03 19:42 | Inpatient (IN) | payer MEDICARE, OTHER ==
[2018-04-03] MEDS ORDERED: SODIUM CHLORIDE 0.9% 2,000 ML IV STA (20:10)
[2018-04-03] MEDS ORDERED: SODIUM CHLORIDE 0.9% 1,000 ML IV STA (20:10)
[2018-04-03] MEDS ORDERED: KETOROLAC 30 MG/ML 1 ML VIAL IVP STA (20:13)
[2018-04-03] MEDS ORDERED: ACETAMINOPHEN TAB 500 MG TAB PO STA (20:13)
[2018-04-03] MEDS ORDERED: VANCOMYCIN 1,000 MG in SODIUM CHLORIDE 0.9% 250 ML IVPB STA (20:14)
[2018-04-03] MEDS ORDERED: VANCOMYCIN IV PER PHARMACY 1 EACH MISC MISCELLANE PRN (20:14)
[2018-04-03] MEDS ORDERED: VANCOMYCIN 2,250 MG in SODIUM CHLORIDE 0.9% 500 ML IVPB STA (20:19)
--- NOTE | 2018-04-03 20:19 | ED ---
General Adult HPI - General Chief complaint: Urogenital Stated complaint: Female Time Seen by Provider: 04/03/18 20:04 Source: patient Mode of arrival: ambulatory Limitations: no limitations - History of Present Illness Initial comments: This 37-year-old white female presents with a complaint of a fever and some lower abdominal pain. She states that she saw her primary care physician this morning and was rediagnosed with urinary tract infection. She apparently has had a significant recent past medical history. She's had recurrent urinary infections. She's been hospitalized with urinary tract infection with sepsis on a couple of occasions just recently. She states that she was discharged home with a PICC line and IV vancomycin. She stopped the vancomycin 2 days ago. She's had low grade fevers throughout the weekend of approximately 100.3. She now has a temperature today of 101. She complains of some pain into her midline lower abdomen and slightly to the right. She does relate a history of dysautonomia which causes her to be tachycardic and she does present fairly tachycardic with a heart rate of 141. She denies any other complaints or modifying factors. - Related Data Home Medications Medication Instructions Recorded Confirmed Cyanocobalamin [Vitamin B-12] 2,000 mcg PO HS 01/25/16 04/03/18 Ferrous Sulfate [Iron (65 MG 325 mg PO BID 07/14/16 04/03/18 Elemental)] Rivaroxaban [Xarelto] 20 mg PO HS 03/09/17 04/03/18 tiZANidine [Zanaflex] 8 mg PO HS 03/09/17 04/03/18 Levothyroxine Sodium [Synthroid] 50 mcg PO DAILY 07/29/17 04/03/18 Levothyroxine Sodium [Synthroid] 200 mcg PO DAILY 07/29/17 04/03/18 Metoclopramide [Reglan] 10 mg PO ACHS 07/29/17 04/03/18 Insulin Aspart [NovoLOG Flexpen] See Protocol SQ AC-TID 09/13/17 04/03/18 Topiramate [Topamax] 75 mg PO BID 09/13/17 04/03/18 Trimethobenzamide HCl [Tigan] 300 mg PO TID PRN 09/25/17 04/03/18 Metoprolol Succinate (ER) [Toprol 100 mg PO DAILY 10/24/17 04/03/18 XL] Ranitidine HCl 150 mg PO BID 12/17/17 04/03/18 Insulin Glargine [Lantus] 35 unit SQ HS 03/15/18 04/03/18 Losartan [Cozaar] 50 mg PO DAILY 03/15/18 04/03/18 Previous Rx's Medication Instructions Recorded HYDROmorphone [Dilaudid] 2 mg PO Q4HR PRN #60 tab 01/05/18 diphenhydrAMINE [Benadryl] 50 mg PO TID #9 cap 03/28/18 Allergies Allergy/AdvReac Type Severity Reaction Status Date / Time barium sulfate Allergy Anaphylaxis Verified 04/03/18 20:01 diphtheria, pertussis, Allergy Unknown Verified 04/03/18 20:01 tetanus vacc doxepin [Doxepin] Allergy Anaphylaxis Verified 04/03/18 20:01 ertapenem [From Invanz] Allergy Rash/Hives Verified 04/03/18 20:01 influenza virus vaccine, Allergy Anaphylaxis Verified 04/03/18 20:01 specific [Influenza Virus Vacc,Specific] promethazine HCl Allergy Anaphylaxis Verified 04/03/18 20:01 [From Phenergan] doxycycline AdvReac Nausea & Verified 04/03/18 20:01 Vomiting & Diarrhea Pertussis Vaccines AdvReac fever/seizu Verified 04/03/18 20:01 re pseudoephedrine AdvReac Chest Pain Verified 04/03/18 20:01 pseudoephedrine HCl AdvReac Chest Pain Verified 04/03/18 20:01 [From Sudafed] sulfamethoxazole AdvReac Nausea & Verified 04/03/18 20:01 [From Bactrim] Vomiting trimethoprim [From Bactrim] AdvReac Nausea & Verified 04/03/18 20:01 Vomiting Review of Systems ROS Statement: Those systems with pertinent positive or pertinent negative responses have been documented in the HPI. ROS Other: All systems not noted in ROS Statement are negative. Past Medical History Past Medical History: Chest Pain / Angina, CVA/TIA, Diabetes Mellitus, Deep Vein Thrombosis (DVT), Neurologic Disorder, Syncope, Thyroid Disorder Additional Past Medical History / Comment(s): Dysautonomia-progressive neurological disorder, lupus/LUPUS ANTICOAGULANTS, 2004 CVA without residual, ana maira's disease, lymphedema Lt arm d/t DVTs , v-tach, pituitary microadenoma. "mitochondrial disease". patent foramen ovale, narcolepsy, gastropareis, IDDM type II, uti's, falls, orthostatic hypotension/syncope, migraines with hemiplegia, pernicious anemia, polycystic ovarian syndrome, neuropathy bilateral legs/fee-mild, uterine ablation August 2015/patient no longer has periods-had uterine ablation uti's. History of Any Multi-Drug Resistant Organisms: ESBL, MRSA Date of last positivie culture/infection: 03/09/17,02/01/18 ESBL MDRO Source:: LEFT ARM, URINE ECOLI Past Surgical History: Uterine Ablation Additional Past Surgical History / Comment(s): colonscopy/egd, angie, stress test. Past Anesthesia/Blood Transfusion Reactions: No Reported Reaction Additional Past Anesthesia/Blood Transfusion Reaction / Comment(s): patient states "It takes a lot of anesthesia for my body to react". Pt has received blood in past without reaction. Past Psychological History: Bipolar, Depression Smoking Status: Never smoker Past Alcohol Use History: None Reported Past Drug Use History: None Reported - Past Family History Brother(s) Family Medical History: Diabetes Mellitus, Hyperlipidemia, Hypertension Additional Family Medical History / Comment(s): Patient states she has 1 brother with no major medical problems. Father Family Medical History: Diabetes Mellitus, Hyperlipidemia, Hypertension Additional Family Medical History / Comment(s): DAD IS 70 YEARS OLD. Patient states she does not have any contact with her father and does not know his medical history. Mother Family Medical History: Chest Pain / Angina, CVA/TIA, Hyperlipidemia, Hypertension Additional Family Medical History / Comment(s): AGE 62 HAS LUPUS, blood pressure swings high to low General Exam - General Exam Comments Initial Comments: GENERAL: The patient is well nourished and well hydrated. VITAL SIGNS: Heart rate, blood pressure, respiratory rate reviewed as recorded in nurse's notes. EYES: Pupils are round and reactive. Extraocular movements are intact. No conjunctival / lid redness or swelling. ENT: No external evidence of injury, swelling, or ecchymosis. Airway is patent. Throat is clear. NECK: Nontender. No swelling or evidence of injury. No subcutaneous emphysema. Trachea is midline. No thyroid mass. HEART: Tachycardic irregular heart rate. Good peripheral pulses. LUNGS/CHEST: Breath sounds clear and equal bilaterally. No rales, rhonchi, or wheezes. No ecchymosis, subcutaneous emphysema, or tenderness. ABDOMEN: There is mild tenderness noted to the midline lower abdomen and to the right lower quadrant. No palpable masses or organomegaly. No peritoneal signs. No abdominal wall swelling or ecchymosis. EXTREMITIES: No extremity tenderness. Normal muscle tone and function. No thoracolumbar tenderness. NEUROLOGIC: Sensation is grossly intact. Cranial nerve exam reveals face is symmetrical, tongue is midline, speech is clear. SKIN: No abrasions or ecchymosis is noted. No induration or masses noted. PSYCHIATRIC: Alert and oriented. Appropriate behavior and judgment. Limitations: no limitations Course Vital Signs 04/03/18 04/03/18 19:43 20:59 Temperature 100.8 F H Pulse Rate 148 H 119 H Respiratory 20 18 Rate Blood Pressure 143/93 146/86 O2 Sat by Pulse 97 95 Oximetry Medical Decision Making - Medical Decision Making The patient was seen and examined. All diagnostics were reviewed. An IV is started and she is hydrated. She had an EKG done which shows a sinus tachycardia at a rate of 141. There is no acute ST-T wave changes identified. The PA intervals 126, QRS duration is 72, and the QTC intervals 462. She also receives some Toradol as well as some Tylenol for her fever and pain. IV vancomycin is reinitiated. The urine did come back looking infected once again. The CO2 is down consistent with some dehydration. The white blood cell count is elevated. Overall it is felt as though she has a similar presentation to her last couple of times and that she would require admission to the hospital for further treatment. She did receive significant hydration and her heart rate did come down nicely. She is maintaining her blood pressure quite well. The patient is feeling well on recheck. Case will be discussed with primary care physician in the near future and patient is admitted to the hospital for further treatment. - Lab Data Result diagrams: 04/03/18 20:34 04/03/18 20:34 Lab Results 04/03/18 04/03/18 04/03/18 Range/Units 20:34 20:34 20:40 WBC 14.1 H (3.8-10.6) k/uL RBC 4.98 (3.80-5.40) m/uL Hgb 14.0 (11.4-16.0) gm/dL Hct 41.2 (34.0-46.0) % MCV 82.8 (80.0-100.0) fL MCH 28.1 (25.0-35.0) pg MCHC 33.9 (31.0-37.0) g/dL RDW 14.2 (11.5-15.5) % Plt Count 374 (150-450) k/uL Neutrophils % 81 % Lymphocytes % 13 % Monocytes % 3 % Eosinophils % 1 % Basophils % 0 % Neutrophils # 11.4 H (1.3-7.7) k/uL Lymphocytes # 1.8 (1.0-4.8) k/uL Monocytes # 0.5 (0-1.0) k/uL Eosinophils # 0.1 (0-0.7) k/uL Basophils # 0.1 (0-0.2) k/uL PT (9.0-12.0) sec INR (<1.2) APTT (22.0-30.0) sec Sodium 144 (137-145) mmol/L Potassium 4.2 (3.5-5.1) mmol/L Chloride 107 (98-107) mmol/L Carbon Dioxide 16 L (22-30) mmol/L Anion Gap 21 mmol/L BUN 13 (7-17) mg/dL Creatinine 0.60 (0.52-1.04) mg/dL Est GFR (CKD-EPI)AfAm >90 (>60 ml/min/1.73 sqM) Est GFR (CKD-EPI)NonAf >90 (>60 ml/min/1.73 sqM) Glucose 155 H (74-99) mg/dL Plasma Lactic Acid Joce (0.7-2.0) mmol/L Calcium 10.1 (8.4-10.2) mg/dL Total Bilirubin 0.3 (0.2-1.3) mg/dL AST 24 (14-36) U/L ALT 32 (9-52) U/L Alkaline Phosphatase 115 (38-126) U/L Total Protein 7.3 (6.3-8.2) g/dL Albumin 4.6 (3.5-5.0) g/dL Urine Color Yellow Urine Appearance Cloudy H (Clear) Urine pH 5.5 (5.0-8.0) Ur Specific [place] 1.023 (1.001-1.035) Urine Protein Trace H (Negative) Urine Glucose (UA) Negative (Negative) Urine Ketones 1+ H (Negative) Urine Blood Negative (Negative) Urine Nitrite Negative (Negative) Urine Bilirubin Negative (Negative) Urine Urobilinogen <2.0 (<2.0) mg/dL Ur Leukocyte Esterase Trace H (Negative) Urine RBC 1 (0-5) /hpf Urine WBC 6 H (0-5) /hpf Ur Squamous Epith Cells 5 H (0-4) /hpf Urine Bacteria Moderate H (None) /hpf Hyaline Casts 3 H (0-2) /lpf Urine Mucus Rare H (None) /hpf Urine HCG, Qual (Not Detectd) 04/03/18 04/03/18 04/03/18 Range/Units 20:40 20:45 20:45 WBC (3.8-10.6) k/uL RBC (3.80-5.40) m/uL Hgb (11.4-16.0) gm/dL Hct (34.0-46.0) % MCV (80.0-100.0) fL MCH (25.0-35.0) pg MCHC (31.0-37.0) g/dL RDW (11.5-15.5) % Plt Count (150-450) k/uL Neutrophils % % Lymphocytes % % Monocytes % % Eosinophils % % Basophils % % Neutrophils # (1.3-7.7) k/uL Lymphocytes # (1.0-4.8) k/uL Monocytes # (0-1.0) k/uL Eosinophils # (0-0.7) k/uL Basophils # (0-0.2) k/uL PT 10.0 (9.0-12.0) sec INR 1.0 (<1.2) APTT 25.4 (22.0-30.0) sec Sodium (137-145) mmol/L Potassium (3.5-5.1) mmol/L Chloride (98-107) mmol/L Carbon Dioxide (22-30) mmol/L Anion Gap mmol/L BUN (7-17) mg/dL Creatinine (0.52-1.04) mg/dL Est GFR (CKD-EPI)AfAm (>60 ml/min/1.73 sqM) Est GFR (CKD-EPI)NonAf (>60 ml/min/1.73 sqM) Glucose (74-99) mg/dL Plasma Lactic Acid Joce 3.3 H* (0.7-2.0) mmol/L Calcium (8.4-10.2) mg/dL Total Bilirubin (0.2-1.3) mg/dL AST (14-36) U/L ALT (9-52) U/L Alkaline Phosphatase (38-126) U/L Total Protein (6.3-8.2) g/dL Albumin (3.5-5.0) g/dL Urine Color Urine Appearance (Clear) Urine pH (5.0-8.0) Ur Specific [place] (1.001-1.035) Urine Protein (Negative) Urine Glucose (UA) (Negative) Urine Ketones (Negative) Urine Blood (Negative) Urine Nitrite (Negative) Urine Bilirubin (Negative) Urine Urobilinogen (<2.0) mg/dL Ur Leukocyte Esterase (Negative) Urine RBC (0-5) /hpf Urine WBC (0-5) /hpf Ur Squamous Epith Cells (0-4) /hpf Urine Bacteria (None) /hpf Hyaline Casts (0-2) /lpf Urine Mucus (None) /hpf Urine HCG, Qual Not Detected (Not Detectd) Disposition Clinical Impression: Failure of outpatient treatment, Mitochondrial DNA depletion syndrome, Sepsis, Urinary tract infection, Sinus tachycardia, Dysautonomia, Fever, Abdominal pain , Leukocytosis, Dehydration Disposition: ADMITTED IP TO THIS HOSP Condition: Fair Is patient prescribed a controlled substance at d/c from ED?: No Time of Disposition: 22:08 Decision Date: 04/03/18 Decision Time: 22:08
[2018-04-03 20:51] LABS: Basophils # (A) 0.1 k/uL (0-0.2); Basophils % (A) 0 %; Eosinophils # (A) 0.1 k/uL (0-0.7); Eosinophils % (A) 1 %; HCT 41.2 % (34.0-46.0); Lymphocytes # (A) 1.8 k/uL (1.0-4.8); Lymphocytes % (A) 13 %; MCH 28.1 pg (25.0-35.0); MCHC 33.9 g/dL (31.0-37.0); MCV 82.8 fL (80.0-100.0); Mean Platelet Volume 6.8; Monocytes # (A) 0.5 k/uL (0-1.0); Monocytes % (A) 3 %; Neutrophils # (A) 11.4 k/uL (1.3-7.7); Neutrophils % (A) 81 %; Platelet Count 374 k/uL (150-450); RBC 4.98 m/uL (3.80-5.40); RDW 14.2 % (11.5-15.5); WBC 14.1 k/uL (3.8-10.6)
[2018-04-03 21:04] LABS: Appearance,Urine Cloudy (Clear); Bacteria,Urine Moderate /hpf; Bilirubin,Urine Negative (Negative); Blood,Urine Negative (Negative); Color,Urine Yellow; Glucose,Urine (UA) Negative (Negative); Hyaline Casts,Urine 3 /lpf (0-2); Ketones,Urine 1+ (Negative); Leukocyte Esterase,Urine Trace (Negative); Mucus,Urine Rare /hpf; Nitrite,Urine Negative (Negative); PH, Urine 5.5 (5.0-8.0); Protein,Urine Trace (Negative); RBC,Urine 1 /hpf (0-5); Specific Gravity,Urine 1.023 (1.001-1.035); Squamous Epithelial Cell,Urine 5 /hpf (0-4); Urobilinogen,Urine <2.0 mg/dL (<2.0); WBC,Urine 6 /hpf (0-5)
[2018-04-03 21:05] LABS: ALT 32 U/L (9-52); AST 24 U/L (14-36); Albumin 4.6 g/dL (3.5-5.0); Alkaline Phosphatase 115 U/L (38-126); Anion Gap 21 mmol/L; Blood Urea Nitrogen 13 mg/dL (7-17); Calcium 10.1 mg/dL (8.4-10.2); Carbon Dioxide 16 mmol/L (22-30); Chloride 107 mmol/L (98-107); Glucose 155 mg/dL (74-99); Potassium 4.2 mmol/L (3.5-5.1); Sodium 144 mmol/L (137-145); Total Bilirubin 0.3 mg/dL (0.2-1.3); Total Protein 7.3 g/dL (6.3-8.2)
[2018-04-03 21:09] LABS: Partial Thromboplastin Time 25.4 sec (22.0-30.0)
[2018-04-03] MEDS ORDERED: NALOXONE 0.4 MG/ML 1 ML VIAL IV PRN (22:08)
[2018-04-03] MEDS ORDERED: ACETAMINOPHEN TAB 325 MG TAB PO PRN (22:08)
[2018-04-03] MEDS ORDERED: IBUPROFEN 400 MG TAB PO PRN (22:08)
[2018-04-03] MEDS ORDERED: HYDROmorphone 2 MG TAB PO PRN (22:11)
[2018-04-03] MEDS ORDERED: TRIMETHOBENZAMIDE 300 MG CAP PO PRN (22:11)
[2018-04-03 23:21] VITALS: BMI 40.4
[2018-04-04] MEDS: LEVOTHYROXINE 100 MCG TAB PO SCH (05:53)
[2018-04-04] MEDS: LEVOTHYROXINE 50 MCG TAB PO SCH (05:53)
[2018-04-04] MEDS: VANCOMYCIN 2,000 MG in SODIUM CHLORIDE 0.9% 500 ML IVPB SCH ×3 (06:13→23:03)
[2018-04-04 07:21] LABS: Glucose,Whole Blood 123 mg/dL (75-99)
[2018-04-04] MEDS: INSULIN ASPART 100 UNIT/ML 1 ML 10 ML VIAL SQ SCH ×4 (08:02→21:47)
[2018-04-04] MEDS: METOCLOPRAMIDE 10 MG TAB PO SCH ×4 (08:03→21:49)
[2018-04-04] MEDS ORDERED: diphenhydrAMINE 25 MG CAP PO PRN (08:04)
[2018-04-04] MEDS: FAMOTIDINE 20 MG TAB PO SCH ×2 (08:05→21:48)
[2018-04-04] MEDS: METOPROLOL SUCCINATE (ER) 100 MG TAB.ER.24H PO SCH (08:05)
[2018-04-04] MEDS: TOPIRAMATE 25 MG TAB PO SCH ×2 (08:06→21:49)
[2018-04-04] MEDS: FERROUS SULFATE 325 MG TAB PO SCH ×2 (08:06→21:49)
[2018-04-04] MEDS: LOSARTAN 50 MG TAB PO SCH (08:07)
[2018-04-04 08:10] LABS: Anion Gap 15 mmol/L; Blood Urea Nitrogen 13 mg/dL (7-17); Calcium 8.9 mg/dL (8.4-10.2); Carbon Dioxide 18 mmol/L (22-30); Chloride 111 mmol/L (98-107); Glucose 114 mg/dL (74-99); Sodium 144 mmol/L (137-145)
[2018-04-04] MEDS ORDERED: diphenhydrAMINE 50 MG CAP PO SCH (09:00)
[2018-04-04] MEDS: ONDANSETRON 4 MG/2 ML VIAL IVP PRN (09:06)
[2018-04-04 09:11] LABS: Basophils % (A) 1 %; Eosinophils # (A) 0.2 k/uL (0-0.7); Eosinophils % (A) 2 %; HCT 35.7 % (34.0-46.0); HGB 11.3 gm/dL (11.4-16.0); Lymphocytes # (A) 2.5 k/uL (1.0-4.8); Lymphocytes % (A) 31 %; MCH 27.4 pg (25.0-35.0); MCHC 31.6 g/dL (31.0-37.0); MCV 86.7 fL (80.0-100.0); Mean Platelet Volume 7.7; Monocytes # (A) 0.5 k/uL (0-1.0); Monocytes % (A) 7 %; Neutrophils # (A) 4.6 k/uL (1.3-7.7); Neutrophils % (A) 58 %; Platelet Count 266 k/uL (150-450); RBC 4.11 m/uL (3.80-5.40); RDW 14.3 % (11.5-15.5); WBC 7.9 k/uL (3.8-10.6)
--- NOTE | 2018-04-04 09:36 | P.CONS ---
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 She also has a history of hemiplegic migraines. Patient had a recent admission on February 02 which time she was treated for E. coli ESBL UTI with ertapenem. She was discharged home on a 14 day course in the midline in the right arm. She completed her course of antibiotics and the midline was removed. She had [facility] care and [facility] infusion in place. Patient was readmitted and discharged on March 18. At that time her urine culture showed skin and genital radha and she was not discharged on antibiotics. She was again admitted March 22 through March 25 and treated for UTI and was discharged home on Invanz 1 g daily for 14 days along with 1 L fluid daily to help with chronic dehydration issues. However, patient was back in the hospital on March 26 through March 28 and was discharged on vancomycin every 8 hours for 12 bags which was completed and 4 days. Patient states that she did complete course of antibiotics and she has an appointment next week with Dr. Hansen. She saw her primary care physician yesterday and was diagnosed with another urinary tract infection. They tried to obtain an earlier appointment at [facility] but none were available. Yovani Rodriguez states that she did not start any antibiotics with her doctor but went home and then developed a fever of 101 and came into [facility] emergency center on the advice of her home care nurse as she was concerned because she has a midline in place. Patient can planes of nausea without vomiting and decreased appetite. She has lower abdominal pain on the right side and suprapubic. Review of Systems All systems: negative Constitutional: Reports fever, Reports poor appetite, Denies chills Eyes: denies blurred vision, denies pain Ears, nose, mouth and throat: Denies dental pain, Denies headache, Denies mouth pain, Denies sore throat, Denies vertigo Cardiovascular: Denies chest pain, Denies decreased exercise tolerance, Denies dyspnea on exertion, Denies edema, Denies leg edema, Denies shortness of breath , Denies syncope Respiratory: Denies cough, Denies cough with sputum, Denies dyspnea, Denies excessive sputum, Denies hemoptysis, Denies home oxygen, Denies wheezing Gastrointestinal: Reports abdominal pain, Reports loss of appetite, Reports nausea, Denies diarrhea, Denies vomiting Genitourinary: Reports dysuria, Denies hematuria Musculoskeletal: Denies myalgias Integumentary: Denies pruritus, Denies rash Neurological: Denies numbness, Denies weakness Psychiatric: Denies anxiety, Denies depression Endocrine: Denies fatigue, Denies weight change Past Medical History Past Medical History: Chest Pain / Angina, CVA/TIA, Diabetes Mellitus, Deep Vein Thrombosis (DVT), Neurologic Disorder, Syncope, Thyroid Disorder Additional Past Medical History / Comment(s): Dysautonomia-progressive neurological disorder, lupus/LUPUS ANTICOAGULANTS, 2003 CVA without residual, ana maria's disease, lymphedema Lt arm d/t DVTs , v-tach, pituitary microadenoma. "mitochondrial disease". patent foramen ovale, narcolepsy, gastropareis, IDDM type II, uti's, falls, orthostatic hypotension/syncope, migraines with hemiplegia, pernicious anemia, polycystic ovarian syndrome, neuropathy bilateral legs/fee-mild, uterine ablation August 2015/patient no longer has periods-had uterine ablation uti's. History of Any Multi-Drug Resistant Organisms: ESBL, MRSA Year Discovered:: 03/09/17,02/01/18 ESBL MDRO Source:: LEFT ARM, URINE ECOLI Past Surgical History: Uterine Ablation Additional Past Surgical History / Comment(s): colonscopy/egd, angie, stress test. Past Anesthesia/Blood Transfusion Reactions: No Reported Reaction Additional Past Anesthesia/Blood Transfusion Reaction / Comm: patient states " It takes a lot of anesthesia for my body to react". Pt has received blood in past without reaction. Past Psychological History: Bipolar, Depression Additional Psychological History / Comment(s): Pt resides with her mom. She can walk short distances(room to room at home). She uses a wheelchair as well. She has a walker but doesn't use it. She does not drive she gets to [place] by bus or [place]. She has hx of suicide attempt in 2014 but states that depression is stable at this time. No animal exposures. No tobacco or alcohol use. Single without children. Does not relate to other family members with her genetic disorder Smoking Status: Never smoker Past Alcohol Use History: None Reported Additional Past Alcohol Use History / Comment(s): Patient is a lifelong nonsmoker. She denies any medical marijuana, marijuana, street drug or alcohol use. She resides with her mom. She can walk short distances and otherwise uses a wheelchair. She has a walker. She does not drive but usually gets appointments by [facility]. She has history of suicide attempt in 2015 but states depression is stable. No animal exposures. Patient is single without children. Patient denies any family members with her genetic disorder. Past Drug Use History: None Reported - Past Family History Brother(s) Family Medical History: Diabetes Mellitus, Hyperlipidemia, Hypertension Additional Family Medical History / Comment(s): Patient states she has 1 brother with no major medical problems. Father Family Medical History: Diabetes Mellitus, Hyperlipidemia, Hypertension Additional Family Medical History / Comment(s): DAD IS 70 YEARS OLD. Patient states she does not have any contact with her father and does not know his medical history. Mother Family Medical History: Chest Pain / Angina, CVA/TIA, Hyperlipidemia, Hypertension Additional Family Medical History / Comment(s): AGE 62 HAS LUPUS, blood pressure swings high to low Medications and Allergies Home Medications Medication Instructions Recorded Confirmed Type Cyanocobalamin [Vitamin B-12] 2,000 mcg PO HS 01/25/16 04/03/18 History Ferrous Sulfate [Iron (65 MG 325 mg PO BID 07/14/16 04/03/18 History Elemental)] Rivaroxaban [Xarelto] 20 mg PO HS 03/09/17 04/03/18 History tiZANidine [Zanaflex] 8 mg PO HS 03/09/17 04/03/18 History Levothyroxine Sodium [Synthroid] 50 mcg PO DAILY 07/29/17 04/03/18 History Levothyroxine Sodium [Synthroid] 200 mcg PO DAILY 07/29/17 04/03/18 History Metoclopramide [Reglan] 10 mg PO ACHS 07/29/17 04/03/18 History Insulin Aspart [NovoLOG Flexpen] See Protocol SQ AC-TID 09/13/17 04/03/18 History Topiramate [Topamax] 75 mg PO BID 09/13/17 04/03/18 History Trimethobenzamide HCl [Tigan] 300 mg PO TID PRN 09/25/17 04/03/18 History Metoprolol Succinate (ER) [Toprol 100 mg PO DAILY 10/24/17 04/03/18 History XL] Ranitidine HCl 150 mg PO BID 12/17/17 04/03/18 History HYDROmorphone [Dilaudid] 2 mg PO Q4HR PRN #60 tab 01/05/18 04/03/18 Rx Insulin Glargine [Lantus] 35 unit SQ HS 03/15/18 04/03/18 History Losartan [Cozaar] 50 mg PO DAILY 03/15/18 04/03/18 History diphenhydrAMINE [Benadryl] 50 mg PO TID #9 cap 03/28/18 04/03/18 Rx Allergies Allergy/AdvReac Type Severity Reaction Status Date / Time barium sulfate Allergy Anaphylaxis Verified 04/03/18 20:01 diphtheria, pertussis, Allergy Unknown Verified 04/03/18 20:01 tetanus vacc doxepin [Doxepin] Allergy Anaphylaxis Verified 04/03/18 20:01 ertapenem [From Invanz] Allergy Rash/Hives Verified 04/03/18 20:01 influenza virus vaccine, Allergy Anaphylaxis Verified 04/03/18 20:01 specific [Influenza Virus Vacc,Specific] promethazine HCl Allergy Anaphylaxis Verified 04/03/18 20:01 [From Phenergan] doxycycline AdvReac Nausea & Verified 04/03/18 20:01 Vomiting & Diarrhea Pertussis Vaccines AdvReac fever/seizu Verified 04/03/18 20:01 re pseudoephedrine AdvReac Chest Pain Verified 04/03/18 20:01 pseudoephedrine HCl AdvReac Chest Pain Verified 04/03/18 20:01 [From Sudafed] sulfamethoxazole AdvReac Nausea & Verified 04/03/18 20:01 [From Bactrim] Vomiting trimethoprim [From Bactrim] AdvReac Nausea & Verified 04/03/18 20:01 Vomiting Physical Exam Vitals: Vital Signs Temp Pulse Pulse Resp BP BP Pulse Ox 04/04/18 07:05 98.0 F 86 16 146/89 96 04/04/18 00:31 94 134/97 04/04/18 00:00 94 18 04/03/18 23:09 98.5 F 105 H 18 166/83 97 04/03/18 22:08 98.4 F 98 18 125/67 97 04/03/18 20:59 119 H 18 146/86 95 04/03/18 19:43 100.8 F H 148 H 20 143/93 97 Intake and Output 04/03/18 04/04/18 04/04/18 22:59 06:59 14:59 Intake Total 1100 Balance 1100 Intake: Intake, IV Titration 1000 Amount Sodium Chloride 0.9% 1, 1000 000 ml @ 100 mls/hr IV . Q10H STA Rx#:[id number] Oral 100 Other: Voiding Method Toilet Toilet # Voids 1 Weight 110.223 kg 110.223 kg Gen: This is a 37-year-old female patient. She is sitting up in bed and appears to be very comfortable and in no acute distress. HEENT: Head is atraumatic, normocephalic. Pupils equal, round. Sclerae is anicteric. Oral mucous membranes are moist. NECK: Supple. No JVD. No lymphadenopathy. No thyromegaly. LUNGS: Clear to auscultation. No wheezes or rhonchi. No intercostal retractions. HEART: Regular rate and rhythm. No murmur. ABDOMEN: Soft. Bowel sounds are present. No masses. Tenderness to the right lower quadrant, right upper quadrant and suprapubic areas. EXTREMITIES: No pedal edema. No calf tenderness. Dorsalis pedis +2 bilaterally. NEUROLOGICAL: Patient is awake, alert and oriented x3 Results Results: Laboratory Results WBC 7.9 k/uL (3.8-10.6) 04/04/18 06:53 RBC 4.11 m/uL (3.80-5.40) 04/04/18 06:53 Hgb 11.3 gm/dL (11.4-16.0) L 04/04/18 06:53 Hct 35.7 % (34.0-46.0) 04/04/18 06:53 MCV 86.7 fL (80.0-100.0) 04/04/18 06:53 MCH 27.4 pg (25.0-35.0) 04/04/18 06:53 MCHC 31.6 g/dL (31.0-37.0) 04/04/18 06:53 RDW 14.3 % (11.5-15.5) 04/04/18 06:53 Plt Count 266 k/uL (150-450) 04/04/18 06:53 Neutrophils % 58 % 04/04/18 06:53 Lymphocytes % 31 % 04/04/18 06:53 Monocytes % 7 % 04/04/18 06:53 Eosinophils % 2 % 04/04/18 06:53 Basophils % 1 % 04/04/18 06:53 Neutrophils # 4.6 k/uL (1.3-7.7) 04/04/18 06:53 Lymphocytes # 2.5 k/uL (1.0-4.8) 04/04/18 06:53 Monocytes # 0.5 k/uL (0-1.0) 04/04/18 06:53 Eosinophils # 0.2 k/uL (0-0.7) 04/04/18 06:53 Basophils # 0.0 k/uL (0-0.2) 04/04/18 06:53 PT 10.0 sec (9.0-12.0) 04/03/18 20:45 INR 1.0 (<1.2) 04/03/18 20:45 APTT 25.4 sec (22.0-30.0) 04/03/18 20:45 Sodium 144 mmol/L (137-145) 04/04/18 06:53 Potassium 4.0 mmol/L (3.5-5.1) 04/04/18 06:53 Chloride 111 mmol/L (98-107) H 04/04/18 06:53 Carbon Dioxide 18 mmol/L (22-30) L 04/04/18 06:53 Anion Gap 15 mmol/L 04/04/18 06:53 BUN 13 mg/dL (7-17) 04/04/18 06:53 Creatinine 0.46 mg/dL (0.52-1.04) L 04/04/18 06:53 Est GFR (CKD-EPI)AfAm >90 (>60 ml/min/1.73 sqM) 04/04/18 06:53 Est GFR (CKD-EPI)NonAf >90 (>60 ml/min/1.73 sqM) 04/04/18 06:53 Glucose 114 mg/dL (74-99) H 04/04/18 06:53 POC Glucose (mg/dL) 123 mg/dL (75-99) H 04/04/18 07:04 POC Glu Material Expediter ID Katia Boyd 04/04/18 07:04 Lactic Ac Sepsis Rflx Y 04/03/18 21:16 Plasma Lactic Acid Joce 1.1 mmol/L (0.7-2.0) 04/04/18 00:51 Calcium 8.9 mg/dL (8.4-10.2) 04/04/18 06:53 Total Bilirubin 0.3 mg/dL (0.2-1.3) 04/03/18 20:34 AST 24 U/L (14-36) 04/03/18 20:34 ALT 32 U/L (9-52) 04/03/18 20:34 Alkaline Phosphatase 115 U/L (38-126) 04/03/18 20:34 Total Protein 7.3 g/dL (6.3-8.2) 04/03/18 20:34 Albumin 4.6 g/dL (3.5-5.0) 04/03/18 20:34 Urine Color Yellow 04/03/18 20:40 Urine Appearance Cloudy (Clear) H 04/03/18 20:40 Urine pH 5.5 (5.0-8.0) 04/03/18 20:40 Ur Specific [place] 1.023 (1.001-1.035) 04/03/18 20:40 Urine Protein Trace (Negative) H 04/03/18 20:40 Urine Glucose (UA) Negative (Negative) 04/03/18 20:40 Urine Ketones 1+ (Negative) H 04/03/18 20:40 Urine Blood Negative (Negative) 04/03/18 20:40 Urine Nitrite Negative (Negative) 04/03/18 20:40 Urine Bilirubin Negative (Negative) 04/03/18 20:40 Urine Urobilinogen <2.0 mg/dL (<2.0) 04/03/18 20:40 Ur Leukocyte Esterase Trace (Negative) H 04/03/18 20:40 Urine RBC 1 /hpf (0-5) 04/03/18 20:40 Urine WBC 6 /hpf (0-5) H 04/03/18 20:40 Ur Squamous Epith Cells 5 /hpf (0-4) H 04/03/18 20:40 Urine Bacteria Moderate /hpf (None) H 04/03/18 20:40 Hyaline Casts 3 /lpf (0-2) H 04/03/18 20:40 Urine Mucus Rare /hpf (None) H 04/03/18 20:40 Urine HCG, Qual Not Detected (Not Detectd) 04/03/18 20:40 CBC & Chem 7: 04/04/18 06:53 04/04/18 06:53 Labs: Abnormal Lab Results - Last 24 Hours (Table) 04/03/18 04/03/18 04/03/18 Range/Units 20:34 20:34 20:40 WBC 14.1 H (3.8-10.6) k/uL Neutrophils # 11.4 H (1.3-7.7) k/uL Chloride (98-107) mmol/L Carbon Dioxide 16 L (22-30) mmol/L Creatinine (0.52-1.04) mg/dL Glucose 155 H (74-99) mg/dL POC Glucose (mg/dL) (75-99) mg/dL Plasma Lactic Acid Joce (0.7-2.0) mmol/L Urine Appearance Cloudy H (Clear) Urine Protein Trace H (Negative) Urine Ketones 1+ H (Negative) Ur Leukocyte Esterase Trace H (Negative) Urine WBC 6 H (0-5) /hpf Ur Squamous Epith Cells 5 H (0-4) /hpf Urine Bacteria Moderate H (None) /hpf Hyaline Casts 3 H (0-2) /lpf Urine Mucus Rare H (None) /hpf 04/03/18 04/04/18 04/04/18 Range/Units 20:45 06:53 07:04 WBC (3.8-10.6) k/uL Neutrophils # (1.3-7.7) k/uL Chloride 111 H (98-107) mmol/L Carbon Dioxide 18 L (22-30) mmol/L Creatinine 0.46 L (0.52-1.04) mg/dL Glucose 114 H (74-99) mg/dL POC Glucose (mg/dL) 123 H (75-99) mg/dL Plasma Lactic Acid Joce 3.3 H* (0.7-2.0) mmol/L Urine Appearance (Clear) Urine Protein (Negative) Urine Ketones (Negative) Ur Leukocyte Esterase (Negative) Urine WBC (0-5) /hpf Ur Squamous Epith Cells (0-4) /hpf Urine Bacteria (None) /hpf Hyaline Casts (0-2) /lpf Urine Mucus (None) /hpf Microbiology - Last 24 Hours (Table) 04/03/18 20:40 Urine Culture - Preliminary Urine,Voided Assessment and Plan Plan: This is a 37-year-old female patient who presented to the hospital with fever and dysuria. Patient is currently on vancomycin. Urine culture is in progress as well as blood cultures in progress. Continue supportive care. Further recommendations as patient progresses. The above dictated assessment and findings were discussed with Dr. Hansen. The impression and plan of care have been directed as dictated. Linda Cerna nurse practitioner acting as scribe for Dr. Hansen.
--- NOTE | 2018-04-04 10:48 | P.HPIM ---
History of Present Illness H&P Date: 04/04/18 Chief Complaint: Fever with urinary symptoms This is a 37-year-old female with a known past medical history of mitochondrial syndrome, lupus anticoagulant disorder, insulin-dependent diabetes mellitus and hypothyroidism. Patient has had multiple hospitalizations with the last few months due to recurrent UTIs. Last hospitalization was 03/26/2018 at that time she had a drug eruption to her back due to Invanz which she was receiving for UTI. She was discharged home on March 28 with 4 days of vancomycin via her midline. Patient reports the last day of treatment which was on Tuesday she did start to have some low-grade fevers. She gave herself an extra IV fluid bag and Tylenol. She was unable to keep her fevers down and therefore she came back to the emergency room for further evaluation. Patient reports having fevers as high as 101 at home. On admission she had a temp of 100.8 white count 14.1 and she was also tachycardic heart rate in the 140s. Lactic acid 3.3. She was given IV fluids lactic acid has normalized heart rate has improved. White count has also normalized. Urinalysis shows evidence of infection. She's been started on IV vancomycin for UTI. Urine culture and blood culture pending. Infectious disease has been consulted. Patient does present again with burning urination with suprapubic and right flank pain. She' s had complains of chills and some nausea. Poor appetite. Also had a few episodes of diarrhea. Stools for C. diff has been ordered due to her being on multiple antibiotics. Patient also having evidence of a metabolic acidosis with CO2 of 16 has come up to 18. She denies any chest pain or shortness of breath. Review of Systems Please refer to HPI otherwise unremarkable Past Medical History Past Medical History: Chest Pain / Angina, CVA/TIA, Diabetes Mellitus, Deep Vein Thrombosis (DVT), Neurologic Disorder, Syncope, Thyroid Disorder Additional Past Medical History / Comment(s): Dysautonomia-progressive neurological disorder, lupus/LUPUS ANTICOAGULANTS, 2004 CVA without residual, ana maria's disease, lymphedema Lt arm d/t DVTs , v-tach, pituitary microadenoma. "mitochondrial disease". patent foramen ovale, narcolepsy, gastropareis, IDDM type II, uti's, falls, orthostatic hypotension/syncope, migraines with hemiplegia, pernicious anemia, polycystic ovarian syndrome, neuropathy bilateral legs/fee-mild, uterine ablation August 2015/patient no longer has periods-had uterine ablation uti's. History of Any Multi-Drug Resistant Organisms: ESBL, MRSA Date of last positivie culture/infection: 03/09/17,02/01/18 ESBL MDRO Source:: LEFT ARM, URINE ECOLI Past Surgical History: Uterine Ablation Additional Past Surgical History / Comment(s): colonscopy/egd, angie, stress test. Past Anesthesia/Blood Transfusion Reactions: No Reported Reaction Additional Past Anesthesia/Blood Transfusion Reaction / Comment(s): patient states "It takes a lot of anesthesia for my body to react". Pt has received blood in past without reaction. Past Psychological History: Bipolar, Depression Additional Psychological History / Comment(s): Pt resides with her mom. She can walk short distances(room to room at home). She uses a wheelchair as well. She has a walker but doesn't use it. She does not drive she gets to appts by bus or cab. She has hx of suicide attempt in 2014 but states that depression is stable at this time. No animal exposures. No tobacco or alcohol use. Single without children. Does not relate to other family members with her genetic disorder Smoking Status: Never smoker Past Alcohol Use History: None Reported Additional Past Alcohol Use History / Comment(s): Patient is a lifelong nonsmoker. She denies any medical marijuana, marijuana, street drug or alcohol use. She resides with her mom. She can walk short distances and otherwise uses a wheelchair. She has a walker. She does not drive but usually gets appointments by [facility]. She has history of suicide attempt in 2014 but states depression is stable. No animal exposures. Patient is single without children. Patient denies any family members with her genetic disorder. Past Drug Use History: None Reported - Past Family History Brother(s) Family Medical History: Diabetes Mellitus, Hyperlipidemia, Hypertension Additional Family Medical History / Comment(s): Patient states she has 1 brother with no major medical problems. Father Family Medical History: Diabetes Mellitus, Hyperlipidemia, Hypertension Additional Family Medical History / Comment(s): DAD IS 70 YEARS OLD. Patient states she does not have any contact with her father and does not know his medical history. Mother Family Medical History: Chest Pain / Angina, CVA/TIA, Hyperlipidemia, Hypertension Additional Family Medical History / Comment(s): AGE 62 HAS LUPUS, blood pressure swings high to low Medications and Allergies Home Medications Medication Instructions Recorded Confirmed Type Cyanocobalamin [Vitamin B-12] 2,000 mcg PO HS 01/25/16 04/03/18 History Ferrous Sulfate [Iron (65 MG 325 mg PO BID 07/14/16 04/03/18 History Elemental)] Rivaroxaban [Xarelto] 20 mg PO HS 03/09/17 04/03/18 History tiZANidine [Zanaflex] 8 mg PO HS 03/09/17 04/03/18 History Levothyroxine Sodium [Synthroid] 50 mcg PO DAILY 07/29/17 04/03/18 History Levothyroxine Sodium [Synthroid] 200 mcg PO DAILY 07/29/17 04/03/18 History Metoclopramide [Reglan] 10 mg PO ACHS 07/29/17 04/03/18 History Insulin Aspart [NovoLOG Flexpen] See Protocol SQ AC-TID 09/13/17 04/03/18 History Topiramate [Topamax] 75 mg PO BID 09/13/17 04/03/18 History Trimethobenzamide HCl [Tigan] 300 mg PO TID PRN 09/25/17 04/03/18 History Metoprolol Succinate (ER) [Toprol 100 mg PO DAILY 10/24/17 04/03/18 History XL] Ranitidine HCl 150 mg PO BID 12/17/17 04/03/18 History HYDROmorphone [Dilaudid] 2 mg PO Q4HR PRN #60 tab 01/05/18 04/03/18 Rx Insulin Glargine [Lantus] 35 unit SQ HS 03/15/18 04/03/18 History Losartan [Cozaar] 50 mg PO DAILY 03/15/18 04/03/18 History diphenhydrAMINE [Benadryl] 50 mg PO TID #9 cap 03/28/18 04/03/18 Rx Allergies Allergy/AdvReac Type Severity Reaction Status Date / Time barium sulfate Allergy Anaphylaxis Verified 04/03/18 20:01 diphtheria, pertussis, Allergy Unknown Verified 04/03/18 20:01 tetanus vacc doxepin [Doxepin] Allergy Anaphylaxis Verified 04/03/18 20:01 ertapenem [From Invanz] Allergy Rash/Hives Verified 04/03/18 20:01 influenza virus vaccine, Allergy Anaphylaxis Verified 04/03/18 20:01 specific [Influenza Virus Vacc,Specific] promethazine HCl Allergy Anaphylaxis Verified 04/03/18 20:01 [From Phenergan] doxycycline AdvReac Nausea & Verified 04/03/18 20:01 Vomiting & Diarrhea Pertussis Vaccines AdvReac fever/seizu Verified 04/03/18 20:01 re pseudoephedrine AdvReac Chest Pain Verified 04/03/18 20:01 pseudoephedrine HCl AdvReac Chest Pain Verified 04/03/18 20:01 [From Sudafed] sulfamethoxazole AdvReac Nausea & Verified 04/03/18 20:01 [From Bactrim] Vomiting trimethoprim [From Bactrim] AdvReac Nausea & Verified 04/03/18 20:01 Vomiting Physical Exam Vitals: Vital Signs Temp Pulse Pulse Resp BP BP Pulse Ox 04/04/18 07:05 98.0 F 86 16 146/89 96 04/04/18 00:31 94 134/97 04/04/18 00:00 94 18 04/03/18 23:09 98.5 F 105 H 18 166/83 97 04/03/18 22:08 98.4 F 98 18 125/67 97 04/03/18 20:59 119 H 18 146/86 95 04/03/18 19:43 100.8 F H 148 H 20 143/93 97 Intake and Output 04/03/18 04/04/18 04/04/18 22:59 06:59 14:59 Intake Total 1100 Balance 1100 Intake: Intake, IV Titration 1000 Amount Sodium Chloride 0.9% 1, 1000 000 ml @ 100 mls/hr IV . Q10H STA Rx#:[id number] Oral 100 Other: Voiding Method Toilet Toilet # Voids 1 Weight 110.223 kg 110.223 kg Head normocephalic Neck supple Lungs clear to auscultation bilaterally no wheezing or crackles Heart regular rate and rhythm S1-S2, no rub or gallop Abdomen is soft mild suprapubic tenderness Extremities no edema Neuro alert and orientated to 3 Results CBC & Chem 7: 04/04/18 06:53 04/04/18 06:53 Labs: Abnormal Lab Results - Last 24 Hours (Table) 04/03/18 04/03/18 04/03/18 Range/Units 20:34 20:34 20:40 WBC 14.1 H (3.8-10.6) k/uL Hgb (11.4-16.0) gm/dL Neutrophils # 11.4 H (1.3-7.7) k/uL Chloride (98-107) mmol/L Carbon Dioxide 16 L (22-30) mmol/L Creatinine (0.52-1.04) mg/dL Glucose 155 H (74-99) mg/dL POC Glucose (mg/dL) (75-99) mg/dL Plasma Lactic Acid Joce (0.7-2.0) mmol/L Urine Appearance Cloudy H (Clear) Urine Protein Trace H (Negative) Urine Ketones 1+ H (Negative) Ur Leukocyte Esterase Trace H (Negative) Urine WBC 6 H (0-5) /hpf Ur Squamous Epith Cells 5 H (0-4) /hpf Urine Bacteria Moderate H (None) /hpf Hyaline Casts 3 H (0-2) /lpf Urine Mucus Rare H (None) /hpf 04/03/18 04/04/18 04/04/18 Range/Units 20:45 06:53 06:53 WBC (3.8-10.6) k/uL Hgb 11.3 L (11.4-16.0) gm/dL Neutrophils # (1.3-7.7) k/uL Chloride 111 H (98-107) mmol/L Carbon Dioxide 18 L (22-30) mmol/L Creatinine 0.46 L (0.52-1.04) mg/dL Glucose 114 H (74-99) mg/dL POC Glucose (mg/dL) (75-99) mg/dL Plasma Lactic Acid Joce 3.3 H* (0.7-2.0) mmol/L Urine Appearance (Clear) Urine Protein (Negative) Urine Ketones (Negative) Ur Leukocyte Esterase (Negative) Urine WBC (0-5) /hpf Ur Squamous Epith Cells (0-4) /hpf Urine Bacteria (None) /hpf Hyaline Casts (0-2) /lpf Urine Mucus (None) /hpf 04/04/18 Range/Units 07:04 WBC (3.8-10.6) k/uL Hgb (11.4-16.0) gm/dL Neutrophils # (1.3-7.7) k/uL Chloride (98-107) mmol/L Carbon Dioxide (22-30) mmol/L Creatinine (0.52-1.04) mg/dL Glucose (74-99) mg/dL POC Glucose (mg/dL) 123 H (75-99) mg/dL Plasma Lactic Acid Joce (0.7-2.0) mmol/L Urine Appearance (Clear) Urine Protein (Negative) Urine Ketones (Negative) Ur Leukocyte Esterase (Negative) Urine WBC (0-5) /hpf Ur Squamous Epith Cells (0-4) /hpf Urine Bacteria (None) /hpf Hyaline Casts (0-2) /lpf Urine Mucus (None) /hpf Microbiology - Last 24 Hours (Table) 04/03/18 20:40 Urine Culture - Preliminary Urine,Voided Thrombosis Risk Factor Assmnt - Choose All That Apply Any of the Below Risk Factors Present?: No Assessment and Plan Assessment: 1. Recurrent UTI with sepsis: Patient restarted on IV vancomycin. Infectious disease consulted. Urine culture and blood culture pending. Patient has had multiple admissions requiring IV antibiotics without significant improvement 2. Diarrhea: Check stool for C. diff 3. Metabolic acidosis possibly related to the diarrhea. Continue to monitor 4. 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 History of lupus anticoagulant disorder. Continue anticoagulation with Xarelto 6. Insulin-dependent diabetes mellitus: Continue continue her insulin. Add sliding scale coverage 7. Hypothyroidism continue her Synthroid GI and DVT prophylaxis Pepcid and Xarelto Time with Patient: Greater than 30 (Greater than 50% of the total time spent in counseling and coordination of care.I performed an examination of the patient and discussed their management with the physician Hardboard Grinder. I have reviewed the Physician Hardboard Grinder's notes and agree with the documented findings and plan of care)
[2018-04-04 11:53] LABS: Glucose,Whole Blood 137 mg/dL (75-99)
[2018-04-04] MEDS: SODIUM CHLORIDE 0.9% 1,000 ML IV SCH (15:36)
[2018-04-04 17:09] LABS: Glucose,Whole Blood 124 mg/dL (75-99)
[2018-04-04 20:37] LABS: Glucose,Whole Blood 140 mg/dL (75-99)
--- NOTE | 2018-04-04 21:44 | P.CON ---
Consult Note - . Consult date: 04/04/18 Assessment/Plan:: 37-year-old female past medical history of mitochondrial syndrome which is resulting in progressive debility. 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 She also has a history of hemiplegic migraines. Patient had a recent admission on February 02 which time she was treated for E. coli ESBL UTI with ertapenem. She was discharged home on a 14 day course in the midline in the right arm. She completed her course of antibiotics and the midline was removed. She had [facility] care and [facility] infusion in place. Patient was readmitted and discharged on March 18. At that time her urine culture showed skin and genital radha and she was not discharged on antibiotics. She was again admitted March 22 through March 25 and treated for UTI and was discharged home on Invanz 1 g daily for 14 days along with 1 L fluid daily to help with chronic dehydration issues. However, patient was back in the hospital on March 26 through March 28 and was discharged on vancomycin every 8 hours for 12 bags which was completed and 4 days. Patient states that she did complete course of antibiotics and she has an appointment next week with Dr. Hansen. She saw her primary care physician yesterday and was diagnosed with another urinary tract infection. They tried to obtain an earlier appointment at [facility] but none were available. Patient states that she did not start any antibiotics with her doctor but went home and then developed a fever of 101 and came into [facility] emergency center on the advice of her home care nurse as she was concerned because she has a midline in place. Patient complains of nausea without vomiting and decreased appetite. She has lower abdominal pain on the right side and suprapubic. Temperature to Hospital 100.8. Please see the consult note as dictated per nurse practitioner Cheri Linda Cerna. Patient is feeling better this afternoon now that she's received some fluids. Which is quite typical for her illness and that when she becomes dehydrated she becomes acidotic week ago with nausea. She is able to have [facility] which she cannot get at home which is an ongoing issue for her in the home setting. We've arranged for outpatient fluids much receiving her antibiotic therapy and this was helping. Although we directed to be fluid for 14 days, the patient relates that when antibiotics were changed to vancomycin because of the skin eruption she was instructed not to take fluids by home care. This is in contrast to the orders that were written. At this time the patient will receive IV fluids and vancomycin therapy pending further culture data during this stay. Recent urinalysis and culture were negative. She has been able to eat her last 2 meals without difficulties. We'll hopefully continue to have rapid improvement. It may be beneficial during this stay consult Dr. Pedro of surgery for port placement given that she has no significant IV access and would do well to have daily or every other day IV fluids in the home setting given her many difficulties. I agree with evaluation, assessment and plan as dictated by nurse practitioner Mrs. Linda Cerna.
[2018-04-04] MEDS: INSULIN DETEMIR 100 UNIT/ML 10 ML VIAL SQ SCH (21:47)
[2018-04-04] MEDS: CYANOCOBALAMIN 500 MCG TAB PO SCH (21:48)
[2018-04-04] MEDS: RIVAROXABAN 20 MG TAB PO SCH (21:49)
[2018-04-04] MEDS: tiZANidine 4 MG TAB PO SCH (21:49)
[2018-04-05] MEDS: VANCOMYCIN 2,000 MG in SODIUM CHLORIDE 0.9% 500 ML IVPB SCH ×2 (05:34→14:31)
[2018-04-05] MEDS: LEVOTHYROXINE 50 MCG TAB PO SCH (05:34)
[2018-04-05] MEDS: LEVOTHYROXINE 100 MCG TAB PO SCH (05:34)
[2018-04-05 07:46] LABS: Basophils % (A) 1 %; Eosinophils # (A) 0.2 k/uL (0-0.7); Eosinophils % (A) 3 %; HCT 35.5 % (34.0-46.0); HGB 11.6 gm/dL (11.4-16.0); Lymphocytes # (A) 1.8 k/uL (1.0-4.8); Lymphocytes % (A) 24 %; MCHC 32.6 g/dL (31.0-37.0); Mean Platelet Volume 6.8; Monocytes # (A) 0.4 k/uL (0-1.0); Monocytes % (A) 5 %; Neutrophils # (A) 4.9 k/uL (1.3-7.7); Neutrophils % (A) 65 %; Platelet Count 268 k/uL (150-450); RBC 4.13 m/uL (3.80-5.40); RDW 14.6 % (11.5-15.5); WBC 7.5 k/uL (3.8-10.6)
[2018-04-05 07:53] LABS: Anion Gap 12 mmol/L; Blood Urea Nitrogen 9 mg/dL (7-17); Calcium 9.1 mg/dL (8.4-10.2); Carbon Dioxide 18 mmol/L (22-30); Chloride 113 mmol/L (98-107); Glucose 113 mg/dL (74-99); Potassium 3.9 mmol/L (3.5-5.1); Sodium 143 mmol/L (137-145)
[2018-04-05] MEDS: INSULIN ASPART 100 UNIT/ML 1 ML 10 ML VIAL SQ SCH ×4 (08:01→20:59)
[2018-04-05 08:04] LABS: Glucose,Whole Blood 110 mg/dL (75-99)
[2018-04-05] MEDS: FERROUS SULFATE 325 MG TAB PO SCH ×2 (08:15→20:59)
[2018-04-05] MEDS: METOCLOPRAMIDE 10 MG TAB PO SCH ×4 (08:15→20:59)
[2018-04-05] MEDS: LOSARTAN 50 MG TAB PO SCH (08:15)
[2018-04-05] MEDS: FAMOTIDINE 20 MG TAB PO SCH ×2 (08:15→21:00)
[2018-04-05] MEDS: TOPIRAMATE 25 MG TAB PO SCH ×2 (08:16→21:00)
[2018-04-05] MEDS: METOPROLOL SUCCINATE (ER) 100 MG TAB.ER.24H PO SCH (08:16)
[2018-04-05] MEDS: SODIUM CHLORIDE 0.9% 1,000 ML IV SCH ×2 (09:41→16:30)
[2018-04-05] MEDS: ONDANSETRON 4 MG/2 ML VIAL IVP PRN (11:27)
[2018-04-05 11:36] LABS: Glucose,Whole Blood 146 mg/dL (75-99)
[2018-04-05] MEDS ORDERED: VANCOMYCIN TROUGH DUE 1 EACH MISC MISCELLANE ONE (13:00)
--- NOTE | 2018-04-05 16:44 | P.PN ---
Subjective Progress Note Date: 04/05/18 This is a 37-year-old female with a known past medical history of mitochondrial syndrome, lupus anticoagulant disorder, insulin-dependent diabetes mellitus and hypothyroidism. Patient has had multiple hospitalizations with the last few months due to recurrent UTIs. Last hospitalization was 03/26/2018 at that time she had a drug eruption to her back due to Invanz which she was receiving for UTI. She was discharged home on March 28 with 4 days of vancomycin via her midline. Patient reports the last day of treatment which was on Tuesday she did start to have some low-grade fevers. She gave herself an extra IV fluid bag and Tylenol. She was unable to keep her fevers down and therefore she came back to the emergency room for further evaluation. Patient reports having fevers as high as 101 at home. On admission she had a temp of 100.8 white count 14.1 and she was also tachycardic heart rate in the 140s. Lactic acid 3.3. She was given IV fluids lactic acid has normalized heart rate has improved. White count has also normalized. Urinalysis shows evidence of infection. She's been started on IV vancomycin for UTI. Urine culture and blood culture pending. Infectious disease has been consulted. Patient does present again with burning urination with suprapubic and right flank pain. She' s had complains of chills and some nausea. Poor appetite. Also had a few episodes of diarrhea. Stools for C. diff has been ordered due to her being on multiple antibiotics. Patient also having evidence of a metabolic acidosis with CO2 of 16 has come up to 18. She denies any chest pain or shortness of breath. On 04/05/2018 patient is alert and oriented 3 in no apparent distress she denies any pain or discomfort, she is feeling tired and has generalized weakness otherwise she denies any complaints, there is no fever or chills no headache no dizziness no chest pain no shortness of no cough, she has nausea but no vomiting no abdominal pain no diarrhea and no urinary symptoms. Objective - Vital Signs Vital signs: Vital Signs Temp 98.6 F 04/05/18 15:01 Pulse 88 04/05/18 15:01 Resp 16 04/05/18 15:01 BP 130/76 04/05/18 15:01 Pulse Ox 97 04/05/18 15:01 Intake & Output 04/04/18 04/05/18 04/05/18 18:59 06:59 18:59 Intake Total 510 600 750 Balance 510 600 750 Intake: IV 10 450 250 Sodium Chloride 0.9% 1, 10 450 250 000 ml @ 50 mls/hr IV . Q20H JOSE Rx#:[id number] Intake, IV Titration 500 150 500 Amount Sodium Chloride 0.9% 1, 150 000 ml @ 50 mls/hr IV . Q20H JOSE Rx#:[id number] Vancomycin 2,000 mg In 500 500 Sodium Chloride 0.9% 500 ml @ 167 mls/hr IVPB Q8H JOSE Rx#:[id number] Other: Voiding Method Toilet Toilet Toilet # Voids 1 - Exam Head normocephalic and atraumatic Neck supple no JVD no goiter Lungs clear to auscultation bilaterally no wheezing or crackles Heart regular rate and rhythm S1-S2, no rub or gallop Abdomen is soft mild suprapubic tenderness Extremities no edema no cyanosis or clubbing Neuro alert and orientated to 3 - Labs CBC & Chem 7: 04/05/18 07:21 04/05/18 07:21 Labs: Abnormal Lab Results - Last 24 Hours (Table) 04/04/18 04/04/18 04/05/18 Range/Units 17:01 20:36 07:21 Chloride 113 H (98-107) mmol/L Carbon Dioxide 18 L (22-30) mmol/L Creatinine 0.43 L (0.52-1.04) mg/dL Glucose 113 H (74-99) mg/dL POC Glucose (mg/dL) 124 H 140 H (75-99) mg/dL 04/05/18 04/05/18 Range/Units 07:34 11:27 Chloride (98-107) mmol/L Carbon Dioxide (22-30) mmol/L Creatinine (0.52-1.04) mg/dL Glucose (74-99) mg/dL POC Glucose (mg/dL) 110 H 146 H (75-99) mg/dL Microbiology - Last 24 Hours (Table) 04/03/18 20:34 Blood Culture - Preliminary Blood No Growth after 24 hours Assessment and Plan Plan: 1. Recurrent UTI with sepsis: Patient restarted on IV vancomycin. Infectious disease consulted. Urine culture and blood culture pending. Patient has had multiple admissions requiring IV antibiotics without significant improvement 2. Diarrhea: Check stool for C. diff 3. Metabolic acidosis possibly related to the diarrhea. Continue to monitor 4. 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 History of lupus anticoagulant disorder. Continue anticoagulation with Xarelto 6. Insulin-dependent diabetes mellitus: Continue continue her insulin. Add sliding scale coverage 7. Hypothyroidism continue her Synthroid GI and DVT prophylaxis Pepcid and Xarelto Consult placed for Dr. Mendez for possible port placement. Medication reviewed continue current management will follow in a
[2018-04-05 17:11] LABS: Glucose,Whole Blood 139 mg/dL (75-99)
--- NOTE | 2018-04-05 19:18 | P.GSCN ---
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 Patient is currently on a blood thinner Xarelto. Patient is a re-admission within 30 days this month for infection. She reports past history of L arm DVT. Currently she has a midline in the right arm. PLAN: 1. May proceed with port placement as outpatient as she is being discharged in 24 hours. 2. Will need 3 days off Xarelto for venous access procedure. 3. No acute surgical intervention at this time. Past Medical History Past Medical History: Chest Pain / Angina, CVA/TIA, Diabetes Mellitus, Deep Vein Thrombosis (DVT), Neurologic Disorder, Syncope, Thyroid Disorder Additional Past Medical History / Comment(s): Dysautonomia-progressive neurological disorder, lupus/LUPUS ANTICOAGULANTS, 2004 CVA without residual, ana maria's disease, lymphedema Lt arm d/t DVTs , v-tach, pituitary microadenoma. "mitochondrial disease". patent foramen ovale, narcolepsy, gastropareis, IDDM type II, uti's, falls, orthostatic hypotension/syncope, migraines with hemiplegia, pernicious anemia, polycystic ovarian syndrome, neuropathy bilateral legs/fee-mild, uterine ablation August 2015/patient no longer has periods-had uterine ablation uti's. History of Any Multi-Drug Resistant Organisms: ESBL, MRSA Year Discovered:: 03/09/17,02/01/18 ESBL MDRO Source:: LEFT ARM, URINE ECOLI Past Surgical History: Uterine Ablation Additional Past Surgical History / Comment(s): colonscopy/egd, angie, stress test. Past Anesthesia/Blood Transfusion Reactions: No Reported Reaction Additional Past Anesthesia/Blood Transfusion Reaction / Comm: patient states " It takes a lot of anesthesia for my body to react". Pt has received blood in past without reaction. Past Psychological History: Bipolar, Depression Additional Psychological History / Comment(s): Pt resides with her mom. She can walk short distances(room to room at home). She uses a wheelchair as well. She has a walker but doesn't use it. She does not drive she gets to appts by bus or cab. She has hx of suicide attempt in 2014 but states that depression is stable at this time. No animal exposures. No tobacco or alcohol use. Single without children. Does not relate to other family members with her genetic disorder Smoking Status: Never smoker Past Alcohol Use History: None Reported Additional Past Alcohol Use History / Comment(s): Patient is a lifelong nonsmoker. She denies any medical marijuana, marijuana, street drug or alcohol use. She resides with her mom. She can walk short distances and otherwise uses a wheelchair. She has a walker. She does not drive but usually gets appointments by [facility]. She has history of suicide attempt in 2015 but states depression is stable. No animal exposures. Patient is single without children. Patient denies any family members with her genetic disorder. Past Drug Use History: None Reported - Past Family History Brother(s) Family Medical History: Diabetes Mellitus, Hyperlipidemia, Hypertension Additional Family Medical History / Comment(s): Patient states she has 1 brother with no major medical problems. Father Family Medical History: Diabetes Mellitus, Hyperlipidemia, Hypertension Additional Family Medical History / Comment(s): DAD IS 70 YEARS OLD. Patient states she does not have any contact with her father and does not know his medical history. Mother Family Medical History: Chest Pain / Angina, CVA/TIA, Hyperlipidemia, Hypertension Additional Family Medical History / Comment(s): AGE 62 HAS LUPUS, blood pressure swings high to low Medications and Allergies Home Medications Medication Instructions Recorded Confirmed Type Cyanocobalamin [Vitamin B-12] 2,000 mcg PO HS 01/25/16 04/03/18 History Ferrous Sulfate [Iron (65 MG 325 mg PO BID 07/14/16 04/03/18 History Elemental)] Rivaroxaban [Xarelto] 20 mg PO HS 03/09/17 04/03/18 History tiZANidine [Zanaflex] 8 mg PO HS 03/09/17 04/03/18 History Levothyroxine Sodium [Synthroid] 50 mcg PO DAILY 07/29/17 04/03/18 History Levothyroxine Sodium [Synthroid] 200 mcg PO DAILY 07/29/17 04/03/18 History Metoclopramide [Reglan] 10 mg PO ACHS 07/29/17 04/03/18 History Insulin Aspart [NovoLOG Flexpen] See Protocol SQ AC-TID 09/13/17 04/03/18 History Topiramate [Topamax] 75 mg PO BID 09/13/17 04/03/18 History Trimethobenzamide HCl [Tigan] 300 mg PO TID PRN 09/25/17 04/03/18 History Metoprolol Succinate (ER) [Toprol 100 mg PO DAILY 10/24/17 04/03/18 History XL] Ranitidine HCl 150 mg PO BID 12/17/17 04/03/18 History HYDROmorphone [Dilaudid] 2 mg PO Q4HR PRN #60 tab 01/05/18 04/03/18 Rx Insulin Glargine [Lantus] 35 unit SQ HS 03/15/18 04/03/18 History Losartan [Cozaar] 50 mg PO DAILY 03/15/18 04/03/18 History diphenhydrAMINE [Benadryl] 50 mg PO TID #9 cap 03/28/18 04/03/18 Rx Non-Formulary Drug [Non Formulary 1,000 ml IVPB DAILY #30 misc 04/05/18 Rx Drug] Allergies Allergy/AdvReac Type Severity Reaction Status Date / Time barium sulfate Allergy Anaphylaxis Verified 04/03/18 20:01 diphtheria, pertussis, Allergy Unknown Verified 04/03/18 20:01 tetanus vacc doxepin [Doxepin] Allergy Anaphylaxis Verified 04/03/18 20:01 ertapenem [From Invanz] Allergy Rash/Hives Verified 04/03/18 20:01 influenza virus vaccine, Allergy Anaphylaxis Verified 04/03/18 20:01 specific [Influenza Virus Vacc,Specific] promethazine HCl Allergy Anaphylaxis Verified 04/03/18 20:01 [From Phenergan] doxycycline AdvReac Nausea & Verified 04/03/18 20:01 Vomiting & Diarrhea Pertussis Vaccines AdvReac fever/seizu Verified 04/03/18 20:01 re pseudoephedrine AdvReac Chest Pain Verified 04/03/18 20:01 pseudoephedrine HCl AdvReac Chest Pain Verified 04/03/18 20:01 [From Sudafed] sulfamethoxazole AdvReac Nausea & Verified 04/03/18 20:01 [From Bactrim] Vomiting trimethoprim [From Bactrim] AdvReac Nausea & Verified 04/03/18 20:01 Vomiting Surgical - Exam Vital Signs Temp Pulse Resp BP Pulse Ox 100.8 F H 148 H 20 143/93 97 04/03/18 19:43 04/03/18 19:43 04/03/18 19:43 04/03/18 19:43 04/03/18 19:43 Results - Labs 04/05/18 07:21 04/05/18 07:21 Abnormal Lab Results - Last 24 Hours (Table) 04/04/18 04/05/18 04/05/18 Range/Units 20:36 07:21 07:34 Chloride 113 H (98-107) mmol/L Carbon Dioxide 18 L (22-30) mmol/L Creatinine 0.43 L (0.52-1.04) mg/dL Glucose 113 H (74-99) mg/dL POC Glucose (mg/dL) 140 H 110 H (75-99) mg/dL 04/05/18 04/05/18 Range/Units 11:27 17:07 Chloride (98-107) mmol/L Carbon Dioxide (22-30) mmol/L Creatinine (0.52-1.04) mg/dL Glucose (74-99) mg/dL POC Glucose (mg/dL) 146 H 139 H (75-99) mg/dL Microbiology - Last 24 Hours (Table) 04/03/18 20:34 Blood Culture - Preliminary Blood No Growth after 24 hours Diabetes panel 04/05/18 Range/Units 07:21 Sodium 143 (137-145) mmol/L Potassium 3.9 (3.5-5.1) mmol/L Chloride 113 H (98-107) mmol/L Carbon Dioxide 18 L (22-30) mmol/L BUN 9 (7-17) mg/dL Creatinine 0.43 L (0.52-1.04) mg/dL Glucose 113 H (74-99) mg/dL Calcium 9.1 (8.4-10.2) mg/dL Calcium panel 04/05/18 Range/Units 07:21 Calcium 9.1 (8.4-10.2) mg/dL Pituitary panel 04/05/18 Range/Units 07:21 Sodium 143 (137-145) mmol/L Potassium 3.9 (3.5-5.1) mmol/L Chloride 113 H (98-107) mmol/L Carbon Dioxide 18 L (22-30) mmol/L BUN 9 (7-17) mg/dL Creatinine 0.43 L (0.52-1.04) mg/dL Glucose 113 H (74-99) mg/dL Calcium 9.1 (8.4-10.2) mg/dL Adrenal panel 04/05/18 Range/Units 07:21 Sodium 143 (137-145) mmol/L Potassium 3.9 (3.5-5.1) mmol/L Chloride 113 H (98-107) mmol/L Carbon Dioxide 18 L (22-30) mmol/L BUN 9 (7-17) mg/dL Creatinine 0.43 L (0.52-1.04) mg/dL Glucose 113 H (74-99) mg/dL Calcium 9.1 (8.4-10.2) mg/dL
[2018-04-05 20:07] LABS: Glucose,Whole Blood 173 mg/dL (75-99)
[2018-04-05] MEDS: CYANOCOBALAMIN 500 MCG TAB PO SCH (20:59)
[2018-04-05] MEDS: INSULIN DETEMIR 100 UNIT/ML 10 ML VIAL SQ SCH (20:59)
[2018-04-05] MEDS: RIVAROXABAN 20 MG TAB PO SCH (21:00)
[2018-04-05] MEDS: tiZANidine 4 MG TAB PO SCH (21:00)
--- NOTE | 2018-04-05 21:16 | P.PN ---
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 She also has a history of hemiplegic migraines. Patient had a recent admission on February 02 which time she was treated for E. coli ESBL UTI with ertapenem. She was discharged home on a 14 day course in the midline in the right arm. She completed her course of antibiotics and the midline was removed. She had [place] [facility] care and [facility] infusion in place. Patient was readmitted and discharged on March 18. At that time her urine culture showed skin and genital radha and she was not discharged on antibiotics. She was again admitted March 22 through March 25 and treated for UTI and was discharged home on Invanz 1 g daily for 14 days along with 1 L fluid daily to help with chronic dehydration issues. However, patient was back in the hospital on March 26 through March 28 and was discharged on vancomycin every 8 hours for 12 bags which was completed and 4 days. Patient states that she did complete course of antibiotics and she has an appointment next week with Dr. Hansen. She saw her primary care physician yesterday and was diagnosed with another urinary tract infection. They tried to obtain an earlier appointment at [facility] but none were available. Patient states that she did not start any antibiotics with her doctor but went home and then developed a fever of 101 and came into [facility] on the advice of her home care nurse as she was concerned because she has a midline in place. Patient can planes of nausea without vomiting and decreased appetite. She has lower abdominal pain on the right side and suprapubic. 04/05/2018 finds the patient be feeling better. Nausea is under good control with hydration and antiemetics. As noted she is receiving Zofran here that she cannot get at home. She's 9 fevers or chills. Pain is under good control. No new acute complaints. Objective - Vital Signs Vital signs: Vital Signs Temp 98.6 F 04/05/18 15:01 Pulse 88 04/05/18 15:01 Resp 16 04/05/18 15:01 BP 130/76 04/05/18 15:01 Pulse Ox 97 04/05/18 15:01 Intake & Output 04/05/18 04/05/18 04/06/18 06:59 18:59 06:59 Intake Total 600 750 Balance 600 750 Intake: IV 450 250 Sodium Chloride 0.9% 1, 450 250 000 ml @ 50 mls/hr IV . Q20H JOSE Rx#:[id number] Intake, IV Titration 150 500 Amount Sodium Chloride 0.9% 1, 150 000 ml @ 50 mls/hr IV . Q20H JOSE Rx#:[id number] Vancomycin 2,000 mg In 500 Sodium Chloride 0.9% 500 ml @ 167 mls/hr IVPB Q8H JOSE Rx#:[id number] Other: Voiding Method Toilet Toilet # Voids 1 - Exam Gen: This is a 37-year-old female patient. She is sitting up in bed and appears to be very comfortable and in no acute distress. HEENT: Head is atraumatic, normocephalic. Pupils equal, round. Sclerae is anicteric. Oral mucous membranes are moist. NECK: Supple. No JVD. No lymphadenopathy. No thyromegaly. LUNGS: Clear to auscultation. No wheezes or rhonchi. No intercostal retractions. HEART: Regular rate and rhythm. No murmur. ABDOMEN: Soft. Bowel sounds are present. No masses. Tenderness to the right lower quadrant, right upper quadrant and suprapubic areas. EXTREMITIES: No pedal edema. No calf tenderness. Dorsalis pedis +2 bilaterally. The midline catheter in the right forearm is noted to have no erythema or tenderness. It is functioning well. NEUROLOGICAL: Patient is awake, alert and oriented x3 - Labs CBC & Chem 7: 04/05/18 07:21 04/05/18 07:21 Labs: Abnormal Lab Results - Last 24 Hours (Table) 04/05/18 04/05/18 04/05/18 Range/Units 07:21 07:34 11:27 Chloride 113 H (98-107) mmol/L Carbon Dioxide 18 L (22-30) mmol/L Creatinine 0.43 L (0.52-1.04) mg/dL Glucose 113 H (74-99) mg/dL POC Glucose (mg/dL) 110 H 146 H (75-99) mg/dL 04/05/18 04/05/18 Range/Units 17:07 20:05 Chloride (98-107) mmol/L Carbon Dioxide (22-30) mmol/L Creatinine (0.52-1.04) mg/dL Glucose (74-99) mg/dL POC Glucose (mg/dL) 139 H 173 H (75-99) mg/dL Microbiology - Last 24 Hours (Table) 04/03/18 20:34 Blood Culture - Preliminary Blood No Growth after 24 hours Laboratory Results WBC 7.5 k/uL (3.8-10.6) 04/05/18 07:21 RBC 4.13 m/uL (3.80-5.40) 04/05/18 07:21 Hgb 11.6 gm/dL (11.4-16.0) 04/05/18 07:21 Hct 35.5 % (34.0-46.0) 04/05/18 07:21 MCV 86.0 fL (80.0-100.0) 04/05/18 07:21 MCH 28.0 pg (25.0-35.0) 04/05/18 07:21 MCHC 32.6 g/dL (31.0-37.0) 04/05/18 07:21 RDW 14.6 % (11.5-15.5) 04/05/18 07:21 Plt Count 268 k/uL (150-450) 04/05/18 07:21 Neutrophils % 65 % 04/05/18 07:21 Lymphocytes % 24 % 04/05/18 07:21 Monocytes % 5 % 04/05/18 07:21 Eosinophils % 3 % 04/05/18 07:21 Basophils % 1 % 04/05/18 07:21 Neutrophils # 4.9 k/uL (1.3-7.7) 04/05/18 07:21 Lymphocytes # 1.8 k/uL (1.0-4.8) 04/05/18 07: Monocytes # 0.4 k/uL (0-1.0) 04/05/18 07:21 Eosinophils # 0.2 k/uL (0-0.7) 04/05/18 07:21 Basophils # 0.0 k/uL (0-0.2) 04/05/18 07:21 PT 10.0 sec (9.0-12.0) 04/03/18 20:45 INR 1.0 (<1.2) 04/03/18 20:45 APTT 25.4 sec (22.0-30.0) 04/03/18 20:45 Sodium 143 mmol/L (137-145) 04/05/18 07:21 Potassium 3.9 mmol/L (3.5-5.1) 04/05/18 07:21 Chloride 113 mmol/L (98-107) H 04/05/18 07:21 Carbon Dioxide 18 mmol/L (22-30) L 04/05/18 07:21 Anion Gap 12 mmol/L 04/05/18 07:21 BUN 9 mg/dL (7-17) 04/05/18 07:21 Creatinine 0.43 mg/dL (0.52-1.04) L 04/05/18 07:21 Est GFR (CKD-EPI)AfAm >90 (>60 ml/min/1.73 sqM) 04/05/18 07:21 Est GFR (CKD-EPI)NonAf >90 (>60 ml/min/1.73 sqM) 04/05/18 07:21 Glucose 113 mg/dL (74-99) H 04/05/18 07:21 POC Glucose (mg/dL) 173 mg/dL (75-99) H 04/05/18 20:05 POC Glu Audio Visual Manager ISAMAR Españadominique Rocio 04/05/18 20:[address] Glu mg/dL 154 04/04/18 06:53 Hemoglobin A1c 7.0 % (4.0-6.0) H 04/04/18 06:53 Lactic Ac Sepsis Rflx Y 04/03/18 21:16 Plasma Lactic Acid Joce 1.1 mmol/L (0.7-2.0) 04/04/18 00:51 Calcium 9.1 mg/dL (8.4-10.2) 04/05/18 07:21 Total Bilirubin 0.3 mg/dL (0.2-1.3) 04/03/18 20:34 AST 24 U/L (14-36) 04/03/18 20:34 ALT 32 U/L (9-52) 04/03/18 20:34 Alkaline Phosphatase 115 U/L (38-126) 04/03/18 20:34 Total Protein 7.3 g/dL (6.3-8.2) 04/03/18 20:34 Albumin 4.6 g/dL (3.5-5.0) 04/03/18 20:34 Urine Color Yellow 04/03/18 20:40 Urine Appearance Cloudy (Clear) H 04/03/18 20:40 Urine pH 5.5 (5.0-8.0) 04/03/18 20:40 Ur Specific [place] 1.023 (1.001-1.035) 04/03/18 20:40 Urine Protein Trace (Negative) H 04/03/18 20:40 Urine Glucose (UA) Negative (Negative) 04/03/18 20:40 Urine Ketones 1+ (Negative) H 04/03/18 20:40 Urine Blood Negative (Negative) 04/03/18 20:40 Urine Nitrite Negative (Negative) 04/03/18 20:40 Urine Bilirubin Negative (Negative) 04/03/18 20:40 Urine Urobilinogen <2.0 mg/dL (<2.0) 04/03/18 20:40 Ur Leukocyte Esterase Trace (Negative) H 04/03/18 20:40 Urine RBC 1 /hpf (0-5) 04/03/18 20:40 Urine WBC 6 /hpf (0-5) H 04/03/18 20:40 Ur Squamous Epith Cells 5 /hpf (0-4) H 04/03/18 20:40 Urine Bacteria Moderate /hpf (None) H 04/03/18 20:40 Hyaline Casts 3 /lpf (0-2) H 04/03/18 20:40 Urine Mucus Rare /hpf (None) H 04/03/18 20:40 Urine HCG, Qual Not Detected (Not Detectd) 04/03/18 20:40 Vancomycin Trough 20.2 ug/mL 04/05/18 13:28 Laboratory Results WBC 7.5 k/uL (3.8-10.6) 04/05/18 07:21 RBC 4.13 m/uL (3.80-5.40) 04/05/18 07:21 Hgb 11.6 gm/dL (11.4-16.0) 04/05/18 07:21 Hct 35.5 % (34.0-46.0) 04/05/18 07:21 MCV 86.0 fL (80.0-100.0) 04/05/18 07:21 MCH 28.0 pg (25.0-35.0) 04/05/18 07:21 MCHC 32.6 g/dL (31.0-37.0) 04/05/18 07:21 RDW 14.6 % (11.5-15.5) 04/05/18 07:21 Plt Count 268 k/uL (150-450) 04/05/18 07:21 Neutrophils % 65 % 04/05/18 07:21 Lymphocytes % 24 % 04/05/18 07:21 Monocytes % 5 % 04/05/18 07:21 Eosinophils % 3 % 04/05/18 07:21 Basophils % 1 % 04/05/18 07:21 Neutrophils # 4.9 k/uL (1.3-7.7) 04/05/18 07:21 Lymphocytes # 1.8 k/uL (1.0-4.8) 04/05/18 07:21 Monocytes # 0.4 k/uL (0-1.0) 04/05/18 07:21 Eosinophils # 0.2 k/uL (0-0.7) 04/05/18 07:21 Basophils # 0.0 k/uL (0-0.2) 04/05/18 07:21 PT 10.0 sec (9.0-12.0) 04/03/18 20:45 INR 1.0 (<1.2) 04/03/18 20:45 APTT 25.4 sec (22.0-30.0) 04/03/18 20:45 Sodium 143 mmol/L (137-145) 04/05/18 07:21 Potassium 3.9 mmol/L (3.5-5.1) 04/05/18 07:21 Chloride 113 mmol/L (98-107) H 04/05/18 07:21 Carbon Dioxide 18 mmol/L (22-30) L 04/05/18 07:21 Anion Gap 12 mmol/L 04/05/18 07:21 BUN 9 mg/dL (7-17) 04/05/18 07:21 Creatinine 0.43 mg/dL (0.52-1.04) L 04/05/18 07:21 Est GFR (CKD-EPI)AfAm >90 (>60 ml/min/1.73 sqM) 04/05/18 07:21 Est GFR (CKD-EPI)NonAf >90 (>60 ml/min/1.73 sqM) 04/05/18 07:21 Glucose 113 mg/dL (74-99) H 04/05/18 07:21 POC Glucose (mg/dL) 173 mg/dL (75-99) H 04/05/18 20:05 POC Glu Audio Visual Manager Rocio Khoury 04/05/18 20:[address] Glu mg/dL 154 04/04/18 06:53 Hemoglobin A1c 7.0 % (4.0-6.0) H 04/04/18 06:53 Lactic Ac Sepsis Rflx Y 04/03/18 21:16 Plasma Lactic Acid Joce 1.1 mmol/L (0.7-2.0) 04/04/18 00:51 Calcium 9.1 mg/dL (8.4-10.2) 04/05/18 07:21 Total Bilirubin 0.3 mg/dL (0.2-1.3) 04/03/18 20:34 AST 24 U/L (14-36) 04/03/18 20:34 ALT 32 U/L (9-52) 04/03/18 20:34 Alkaline Phosphatase 115 U/L (38-126) 04/03/18 20:34 Total Protein 7.3 g/dL (6.3-8.2) 04/03/18 20:34 Albumin 4.6 g/dL (3.5-5.0) 04/03/18 20:34 Urine Color Yellow 04/03/18 20:40 Urine Appearance Cloudy (Clear) H 04/03/18 20:40 Urine pH 5.5 (5.0-8.0) 04/03/18 20:40 Ur Specific [place] 1.023 (1.001-1.035) 04/03/18 20:40 Urine Protein Trace (Negative) H 04/03/18 20:40 Urine Glucose (UA) Negative (Negative) 04/03/18 20:40 Urine Ketones 1+ (Negative) H 04/03/18 20:40 Urine Blood Negative (Negative) 04/03/18 20:40 Urine Nitrite Negative (Negative) 04/03/18 20:40 Urine Bilirubin Negative (Negative) 05/14/18 20:40 Urine Urobilinogen <2.0 mg/dL (<2.0) 04/03/18 20:40 Ur Leukocyte Esterase Trace (Negative) H 04/03/18 20:40 Urine RBC 1 /hpf (0-5) 04/03/18 20:40 Urine WBC 6 /hpf (0-5) H 04/03/18 20:40 Ur Squamous Epith Cells 5 /hpf (0-4) H 04/03/18 20:40 Urine Bacteria Moderate /hpf (None) H 04/03/18 20:40 Hyaline Casts 3 /lpf (0-2) H 04/03/18 20:40 Urine Mucus Rare /hpf (None) H 04/03/18 20:40 Urine HCG, Qual Not Detected (Not Detectd) 04/03/18 20:40 Vancomycin Trough 20.2 ug/mL 04/05/18 13:28 Microbiology 04/03/18 20:34 Blood Blood Culture - Preliminary No Growth after 24 hours 04/03/18 20:40 Urine,Voided Urine Culture - Preliminary Assessment and Plan (1) Leukocytosis Narrative/Plan: Patient is feeling better this afternoon now that she's received some fluids. Which is quite typical for her illness and that when she becomes dehydrated she becomes acidotic week ago with nausea. She is able to have [facility] which she cannot get at home which is an ongoing issue for her in the home setting. We've arranged for outpatient fluids much receiving her antibiotic therapy and this was helping. Although we directed to be fluid for 14 days, the patient relates that when antibiotics were changed to vancomycin because of the skin eruption she was instructed not to take fluids by home care. This is in contrast to the orders that were written. At this time the patient will receive IV fluids and vancomycin therapy pending further culture data during this stay. Recent urinalysis and culture were negative. She has been able to eat her last 2 meals without difficulties. We'll hopefully continue to have rapid improvement. It may be beneficial during this stay consult Dr. Pedro of surgery for port placement given that she has no significant IV access and would do well to have daily or every other day IV fluids in the home setting given her many difficulties. 04/05/2018 finds patient to be considerably improved. Is eating today. Denies significant fevers or chills. Has her chronic suprapubic and flank pain that has not changed over time. Urine culture is negative so far. Responding well to fluids and supportive therapy which includes Zofran. Is noted the patient is unable to obtain Zofran at home any further per her insurance plan. At the time of discharge will not likely need antibiotic therapy since no evidence of urine infection at this time, await the final culture tomorrow. She should have outpatient fluids on a daily basis when she goes home to prevent rapid readmission. Hopefully Dr. Pedro we will see her to make plans for an outpatient [id number] for her chronic needs an increasing difficulties with IV access. Leukocytosis resolved. As was the transient lactic acidosis that occurs in the face of dehydration due to her mitochondrial syndrome. Current Visit: Yes Status: Acute Code(s): D72.829 - ELEVATED WHITE BLOOD CELL COUNT, UNSPECIFIED SNOMED Code(s): 504065151
[2018-04-05] MEDS: VANCOMYCIN 1,750 MG in SODIUM CHLORIDE 0.9% 250 ML IVPB SCH (21:56)
[2018-04-06] MEDS: VANCOMYCIN 1,750 MG in SODIUM CHLORIDE 0.9% 250 ML IVPB SCH ×2 (05:19→08:47)
[2018-04-06] MEDS: LEVOTHYROXINE 100 MCG TAB PO SCH (05:20)
[2018-04-06] MEDS: SODIUM CHLORIDE 0.9% 1,000 ML IV SCH (05:20)
[2018-04-06] MEDS: LEVOTHYROXINE 50 MCG TAB PO SCH (05:20)
[2018-04-06 07:07] LABS: Glucose,Whole Blood 101 mg/dL (75-99)
[2018-04-06] MEDS: INSULIN ASPART 100 UNIT/ML 1 ML 10 ML VIAL SQ SCH ×2 (07:18→12:51)
[2018-04-06 08:29] LABS: Basophils % (A) 1 %; Eosinophils # (A) 0.2 k/uL (0-0.7); Eosinophils % (A) 3 %; HCT 36.9 % (34.0-46.0); HGB 12.1 gm/dL (11.4-16.0); Lymphocytes # (A) 2.4 k/uL (1.0-4.8); Lymphocytes % (A) 27 %; MCH 27.9 pg (25.0-35.0); MCHC 32.7 g/dL (31.0-37.0); MCV 85.2 fL (80.0-100.0); Mean Platelet Volume 7.3; Monocytes # (A) 0.5 k/uL (0-1.0); Monocytes % (A) 5 %; Neutrophils # (A) 5.4 k/uL (1.3-7.7); Neutrophils % (A) 62 %; Platelet Count 296 k/uL (150-450); RBC 4.34 m/uL (3.80-5.40); RDW 14.7 % (11.5-15.5); WBC 8.7 k/uL (3.8-10.6)
[2018-04-06] MEDS: TOPIRAMATE 25 MG TAB PO SCH (08:46)
[2018-04-06] MEDS: METOPROLOL SUCCINATE (ER) 100 MG TAB.ER.24H PO SCH (08:46)
[2018-04-06 08:47] VITALS: BP 106/68; PULSE 65; RESP 16; TEMP 97.8
[2018-04-06] MEDS: FAMOTIDINE 20 MG TAB PO SCH (08:47)
[2018-04-06] MEDS: METOCLOPRAMIDE 10 MG TAB PO SCH ×2 (08:47→12:51)
[2018-04-06] MEDS: FERROUS SULFATE 325 MG TAB PO SCH (08:47)
[2018-04-06] MEDS: LOSARTAN 50 MG TAB PO SCH (08:47)
[2018-04-06 08:49] LABS: ALT 33 U/L (9-52); AST 21 U/L (14-36); Albumin 3.6 g/dL (3.5-5.0); Alkaline Phosphatase 83 U/L (38-126); Anion Gap 14 mmol/L; Blood Urea Nitrogen 8 mg/dL (7-17); Calcium 9.6 mg/dL (8.4-10.2); Carbon Dioxide 20 mmol/L (22-30); Chloride 111 mmol/L (98-107); Glucose 104 mg/dL (74-99); Potassium 4.2 mmol/L (3.5-5.1); Sodium 145 mmol/L (137-145); Total Bilirubin 0.1 mg/dL (0.2-1.3)
[2018-04-06 11:39] LABS: Glucose,Whole Blood 139 mg/dL (75-99)
--- NOTE | 2018-04-06 14:11 | P.DS ---
Providers Date of admission: 04/03/18 22:08 Expected date of discharge: 04/06/18 Attending physician: Maryellen Joel Consults: 04/03/18 22:09 Consult Physician Urgent Consulting Provider: Jerson Hansen Consult Reason/Comments: fever Do you want consulting provider notified?: Yes 04/05/18 13:08 Consult Physician Routine Consulting Provider: Leslie Mendez Consult Reason/Comments: possible port placement Do you want consulting provider notified?: Yes Primary care physician: [facility] Course: Discharge diagnosis 1. Recurrent UTI with sepsis: Urine culture growing Klebsiella pneumonia. Infectious disease is recommending Ceftin for 7 more days. They also recommending daily IV fluids to keep patient hydrated due to her recurrent episodes of nausea and vomiting 2. Diarrhea: Resolved 3. Metabolic acidosis possibly related to the diarrhea. Has improved 4. 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 History of lupus anticoagulant disorder. Continue anticoagulation with Xarelto 6. Insulin-dependent diabetes mellitus: Continue continue her insulin. Add sliding scale coverage 7. Hypothyroidism continue her [facility] Hospital course This is a 37-year-old female with a known past medical history of mitochondrial syndrome, lupus anticoagulant disorder, insulin-dependent diabetes mellitus and hypothyroidism. Patient has had multiple hospitalizations with the last few months due to recurrent UTIs. Last hospitalization was 03/26/2018 at that time she had a drug eruption to her back due to Invanz which she was receiving for UTI. She was discharged home on March 28 with 4 days of vancomycin via her midline. Patient reports the last day of treatment which was on Tuesday she did start to have some low-grade fevers. She gave herself an extra IV fluid bag and Tylenol. She was unable to keep her fevers down and therefore she came back to the emergency room for further evaluation. Patient reports having fevers as high as 101 at home. On admission she had a temp of 100.8 white count 14.1 and she was also tachycardic heart rate in the 140s. Lactic acid 3.3. She was given IV fluids lactic acid has normalized heart rate has improved. White count has also normalized. Urinalysis shows evidence of infection. She's been started on IV vancomycin for UTI. Urine culture and blood culture pending. Infectious disease has been consulted. Patient does present again with burning urination with suprapubic and right flank pain. She' s had complains of chills and some nausea. Poor appetite. Also had a few episodes of diarrhea. Stools for C. diff has been ordered due to her being on multiple antibiotics. Patient also having evidence of a metabolic acidosis with CO2 of 16 has come up to 18. She denies any chest pain or shortness of breath. Patient seen evaluated by infectious disease regards to her recurrent UTI with sepsis. Initially placed on IV vancomycin anemia urgency room. Urine culture did grow Klebsiella pneumoniae. Infectious recommending Ceftin as stated above. They are also recommending to keep midline and place a continue with daily IV fluid administration. This will help keep patient hydrated. Their concerns that she is not taking enough liquids and having episodes of vomiting and nausea at home and poor oral intake. Patient also be following up with surgical service outpatient for port placement. Surgical services recommending that she is off of the Xarelto for at least 3 days to proceed with the procedure. Patient has been cleared by surgery consultant physicians for discharge. She is been afebrile and white count has normalized. Please refer to chart for any further details I performed an examination of the patient and discussed their management with the physician Control Clerk Repairs. I have reviewed the Physician Control Clerk Repairs's notes and agree with the documented findings and plan of care Patient Condition at Discharge: Fair Plan - Discharge Summary Discharge Rx Participant: No New Discharge Prescriptions: New Non-Formulary Drug [Non Formulary Drug] 1,000 ml IVPB DAILY #30 misc Cefuroxime Axetil [Cefuroxime] 500 mg PO BID #14 tab Continue Cyanocobalamin [Vitamin B-12] 2,000 mcg PO HS Ferrous Sulfate [Iron (65 MG Elemental)] 325 mg PO BID tiZANidine [Zanaflex] 8 mg PO HS Rivaroxaban [Xarelto] 20 mg PO HS Metoclopramide [Reglan] 10 mg PO ACHS Levothyroxine Sodium [Synthroid] 200 mcg PO DAILY Levothyroxine Sodium [Synthroid] 50 mcg PO DAILY Topiramate [Topamax] 75 mg PO BID Insulin Aspart [NovoLOG Flexpen] See Protocol SQ AC-TID Trimethobenzamide HCl [Tigan] 300 mg PO TID PRN PRN Reason: Nausea Metoprolol Succinate (ER) [Toprol XL] 100 mg PO DAILY Ranitidine HCl 150 mg PO BID HYDROmorphone [Dilaudid] 2 mg PO Q4HR PRN #60 tab PRN Reason: Moderate Pain Losartan [Cozaar] 50 mg PO DAILY Insulin Glargine [Lantus] 35 unit SQ HS diphenhydrAMINE [Benadryl] 50 mg PO TID #9 cap Discharge Medication List Cyanocobalamin [Vitamin B-12] 2,000 mcg PO HS 01/25/16 [History] Ferrous Sulfate [Iron (65 MG Elemental)] 325 mg PO BID 07/14/16 [History] Rivaroxaban [Xarelto] 20 mg PO HS 03/09/17 [History] tiZANidine [Zanaflex] 8 mg PO HS 03/09/17 [History] Levothyroxine Sodium [Synthroid] 50 mcg PO DAILY 07/29/17 [History] Levothyroxine Sodium [Synthroid] 200 mcg PO DAILY 07/29/17 [History] Metoclopramide [Reglan] 10 mg PO ACHS 07/29/17 [History] Insulin Aspart [NovoLOG Flexpen] See Protocol SQ AC-TID 09/13/17 [History] Topiramate [Topamax] 75 mg PO BID 09/13/17 [History] Trimethobenzamide HCl [Tigan] 300 mg PO TID PRN 09/25/17 [History] Metoprolol Succinate (ER) [Toprol XL] 100 mg PO DAILY 10/24/17 [History] Ranitidine HCl 150 mg PO BID 12/17/17 [History] HYDROmorphone [Dilaudid] 2 mg PO Q4HR PRN #60 tab 01/05/18 [Rx] Insulin Glargine [Lantus] 35 unit SQ HS 03/15/18 [History] Losartan [Cozaar] 50 mg PO DAILY 03/15/18 [History] diphenhydrAMINE [Benadryl] 50 mg PO TID #9 cap 03/28/18 [Rx] Non-Formulary Drug [Non Formulary Drug] 1,000 ml IVPB DAILY #30 misc 04/05/18 [ Rx] Cefuroxime Axetil [Cefuroxime] 500 mg PO BID #14 tab 04/06/18 [Rx] Follow up Appointment(s)/Referral(s): Jerson Hansen MD [STAFF PHYSICIAN] - 1 Week (has appointment scheduled.) [facility], [facility] - 1 Week [facility], [REFERRING] - 1 Week Leslie Mendez MD [STAFF PHYSICIAN] - 1 Week Maryellen Joel MD [Primary Care Provider] - 1 Week Activity/Diet/Wound Care/Special Instructions: Diet: Diabetic, cardiac Activity: as tolerated Discharge Disposition: HOME WITH HOME HEALTH SERVICES
[2018-04-06] MEDS ORDERED: VANCOMYCIN 1,750 MG in SODIUM CHLORIDE 0.9% 250 ML IVPB SCH (17:00)
== END 2018-04-06 15:40 | disposition home health service (06) | DRG 872 ==
LOC: EC 19:42 → 5MS5E 22:08
PROVIDERS: ADMIT Internal Medicine; ATTEND Internal Medicine
DX: A41.9 Sepsis, unspecified organism (principal); N39.0 Urinary tract infection, site not specified; E88.40 Mitochondrial metabolism disorder, unspecified; D68.62 Lupus anticoagulant syndrome; Q21.1 Atrial septal defect; E87.2 Acidosis; E11.40 Type 2 diabetes mellitus with diabetic neuropathy, unspecified; G43.409 Hemiplegic migraine, not intractable, without status migrainosus; B96.1 Klebsiella pneumoniae [K. pneumoniae] as the cause of diseases classified elsewhere; E03.9 Hypothyroidism, unspecified; F32.9 Major depressive disorder, single episode, unspecified; I95.1 Orthostatic hypotension; E86.0 Dehydration; G47.419 Narcolepsy without cataplexy; D51.0 Vitamin B12 deficiency anemia due to intrinsic factor deficiency; E28.2 Polycystic ovarian syndrome; G90.1 Familial dysautonomia [Riley-Day]; Z79.4 Long term (current) use of insulin; Z79.01 Long term (current) use of anticoagulants; Z79.890 Hormone replacement therapy; Z79.899 Other long term (current) drug therapy; Z87.440 Personal history of urinary (tract) infections; Z88.1 Allergy status to other antibiotic agents; Z88.2 Allergy status to sulfonamides; Z88.7 Allergy status to serum and vaccine; Z88.8 Allergy status to other drugs, medicaments and biological substances; Z86.73 Personal history of transient ischemic attack (TIA), and cerebral infarction without residual deficits; Z86.718 Personal history of other venous thrombosis and embolism; Z86.14 Personal history of Methicillin resistant Staphylococcus aureus infection; Z91.5 Personal history of self-harm; Z86.19 Personal history of other infectious and parasitic diseases; Z83.3 Family history of diabetes mellitus; Z82.49 Family history of ischemic heart disease and other diseases of the circulatory system; Z83.49 Family history of other endocrine, nutritional and metabolic diseases; Z82.69 Family history of other diseases of the musculoskeletal system and connective tissue
CPT/HCPCS: 36415; 80048; 80053; 80202; 81001; 81025; 83036; 83605; 85025; 85610; 85730; 87040; 87077; 87086; 87186; 93005; 96365; 96366; 96375; 99284

== ENCOUNTER 2018-04-15 15:47 | Inpatient (IN) | payer MEDICARE, OTHER ==
[2018-04-15] MEDS ORDERED: cefTRIAXone IN SWFI 2,000 MG/20 ML SYRINGE IVP STA (16:19)
[2018-04-15 16:31] LABS: Appearance,Urine Cloudy (Clear); Bacteria,Urine Rare /hpf; Bilirubin,Urine Negative (Negative); Blood,Urine Small (Negative); Color,Urine Yellow; Glucose,Urine (UA) Negative (Negative); Hyaline Casts,Urine 5 /lpf (0-2); Ketones,Urine Trace (Negative); Leukocyte Esterase,Urine Small (Negative); Mucus,Urine Occasional /hpf; Nitrite,Urine Negative (Negative); Protein,Urine Trace (Negative); RBC,Urine 2 /hpf (0-5); Specific Gravity,Urine 1.023 (1.001-1.035); Squamous Epithelial Cell,Urine 3 /hpf (0-4); Urobilinogen,Urine <2.0 mg/dL (<2.0); WBC,Urine 5 /hpf (0-5)
[2018-04-15 16:51] LABS: Basophils # (A) 0.1 k/uL (0-0.2); Basophils % (A) 0 %; Eosinophils # (A) 0.2 k/uL (0-0.7); Eosinophils % (A) 1 %; HCT 40.3 % (34.0-46.0); HGB 13.4 gm/dL (11.4-16.0); Lymphocytes # (A) 1.5 k/uL (1.0-4.8); Lymphocytes % (A) 13 %; MCH 28.1 pg (25.0-35.0); MCHC 33.3 g/dL (31.0-37.0); MCV 84.3 fL (80.0-100.0); Mean Platelet Volume 6.4; Monocytes # (A) 0.4 k/uL (0-1.0); Monocytes % (A) 3 %; Neutrophils % (A) 81 %; Platelet Count 374 k/uL (150-450); RBC 4.78 m/uL (3.80-5.40); WBC 12.2 k/uL (3.8-10.6)
[2018-04-15] MEDS: SODIUM CHLORIDE 0.9% 500 ML IV SCH ×2 (16:52→18:18)
[2018-04-15 17:00] LABS: Partial Thromboplastin Time 24.6 sec (22.0-30.0)
[2018-04-15 17:05] LABS: ALT 31 U/L (9-52); AST 23 U/L (14-36); Albumin 4.5 g/dL (3.5-5.0); Alkaline Phosphatase 101 U/L (38-126); Anion Gap 21 mmol/L; Blood Urea Nitrogen 9 mg/dL (7-17); Carbon Dioxide 17 mmol/L (22-30); Chloride 104 mmol/L (98-107); Glucose 192 mg/dL (74-99); Potassium 4.1 mmol/L (3.5-5.1); Sodium 142 mmol/L (137-145); Total Bilirubin 0.2 mg/dL (0.2-1.3); Total Protein 7.2 g/dL (6.3-8.2)
[2018-04-15] MEDS ORDERED: SODIUM CHLORIDE 0.9% 1,000 ML IV ONE (17:17)
[2018-04-15] MEDS ORDERED: RX INFO: IV CONTRAST WAS GIVEN 1 EACH MISC MISCELLANE PRN (18:47)
--- NOTE | 2018-04-15 18:47 | ED ---
Female Urogenital HPI - General Chief complaint: Urogenital Stated complaint: Urogenital Time Seen by Provider: 04/15/18 16:00 Source: patient Mode of arrival: ambulatory Limitations: physical limitation - History of Present Illness Initial comments: 37 years O female comes in with the ongoing UTI since December this year, she had some antibiotics in the past she has been doing some follow-up with the Dr. Hansen infectious disease doctor she completed a course of cefuroxime 100 mg twice daily now she is on a second course of that resented with a fever off-and- on frequency urgency dysuria and pain in the suprapubic area she has pain in the right flank area she vomited 3 times today. She is also complaining about pain in the right lower quadrant area she never had any surgery on her abdomen she still has her appendix and her gallbladder. Still history of diabetes and diabetes induced gastroparesis. Has frequency urgency urgency dysuria no signs of any TIA or CVA no chest pain or shortness of breath no neck stiffness no headaches - Related Data Home Medications Medication Instructions Recorded Confirmed Cyanocobalamin [Vitamin B-12] 2,000 mcg PO HS 01/25/16 04/15/18 Ferrous Sulfate [Iron (65 MG 325 mg PO BID 07/14/16 04/15/18 Elemental)] Rivaroxaban [Xarelto] 20 mg PO HS 03/09/17 04/15/18 tiZANidine [Zanaflex] 8 mg PO HS 03/09/17 04/15/18 Levothyroxine Sodium [Synthroid] 50 mcg PO DAILY 07/29/17 04/15/18 Levothyroxine Sodium [Synthroid] 200 mcg PO DAILY 07/29/17 04/15/18 Metoclopramide [Reglan] 10 mg PO ACHS 07/29/17 04/15/18 Insulin Aspart [NovoLOG Flexpen] See Protocol SQ AC-TID 09/13/17 04/15/18 Topiramate [Topamax] 75 mg PO BID 09/13/17 04/15/18 Trimethobenzamide HCl [Tigan] 300 mg PO TID PRN 09/25/17 04/15/18 Metoprolol Succinate (ER) [Toprol 100 mg PO DAILY 10/24/17 04/15/18 XL] Ranitidine HCl 150 mg PO BID 12/17/17 04/15/18 Insulin Glargine [Lantus] 35 unit SQ HS 03/15/18 04/15/18 Losartan [Cozaar] 50 mg PO DAILY 03/15/18 04/15/18 Previous Rx's Medication Instructions Recorded HYDROmorphone [Dilaudid] 2 mg PO Q4HR PRN #60 tab 01/05/18 diphenhydrAMINE [Benadryl] 50 mg PO TID #9 cap 03/28/18 Non-Formulary Drug [Non Formulary 1,000 ml IVPB DAILY #30 misc 04/05/18 Drug] Cefuroxime Axetil [Cefuroxime] 500 mg PO BID #14 tab 04/06/18 Allergies Allergy/AdvReac Type Severity Reaction Status Date / Time barium sulfate Allergy Anaphylaxis Verified 04/15/18 17:03 diphtheria, pertussis, Allergy Unknown Verified 04/15/18 17:03 tetanus vacc doxepin [Doxepin] Allergy Anaphylaxis Verified 04/15/18 17:03 ertapenem [From Invanz] Allergy Rash/Hives Verified 04/15/18 17:03 influenza virus vaccine, Allergy Anaphylaxis Verified 04/15/18 17:03 specific [Influenza Virus Vacc,Specific] promethazine HCl Allergy Anaphylaxis Verified 04/15/18 17:03 [From Phenergan] doxycycline AdvReac Nausea & Verified 04/15/18 17:03 Vomiting & Diarrhea Pertussis Vaccines AdvReac fever/seizu Verified 04/15/18 17:03 re pseudoephedrine AdvReac Chest Pain Verified 04/15/18 17:03 pseudoephedrine HCl AdvReac Chest Pain Verified 04/15/18 17:03 [From Sudafed] sulfamethoxazole AdvReac Nausea & Verified 04/15/18 17:03 [From Bactrim] Vomiting trimethoprim [From Bactrim] AdvReac Nausea & Verified 04/15/18 17:03 Vomiting Review of Systems ROS Statement: Those systems with pertinent positive or pertinent negative responses have been documented in the HPI. ROS Other: All systems not noted in ROS Statement are negative. Past Medical History Past Medical History: Chest Pain / Angina, CVA/TIA, Diabetes Mellitus, Deep Vein Thrombosis (DVT), Neurologic Disorder, Syncope, Thyroid Disorder Additional Past Medical History / Comment(s): Dysautonomia-progressive neurological disorder, lupus/LUPUS ANTICOAGULANTS, 2004 CVA without residual, ana maria's disease, lymphedema Lt arm d/t DVTs , v-tach, pituitary microadenoma. "mitochondrial disease". patent foramen ovale, narcolepsy, gastropareis, IDDM type II, uti's, falls, orthostatic hypotension/syncope, migraines with hemiplegia, pernicious anemia, polycystic ovarian syndrome, neuropathy bilateral legs/fee-mild, uterine ablation August 2015/patient no longer has periods-had uterine ablation uti's. History of Any Multi-Drug Resistant Organisms: ESBL, MRSA Date of last positivie culture/infection: 03/09/17 MRSA/ 02/01/18 ESBL MDRO Source:: MRSA LEFT ARM,/ESBL URINE ECOLI Past Surgical History: Ablation, Uterine Ablation Additional Past Surgical History / Comment(s): colonscopy/egd, angie, stress test. Past Anesthesia/Blood Transfusion Reactions: No Reported Reaction Additional Past Anesthesia/Blood Transfusion Reaction / Comment(s): patient states "It takes a lot of anesthesia for my body to react". Pt has received blood in past without reaction. Past Psychological History: Bipolar, Depression Smoking Status: Never smoker Past Alcohol Use History: None Reported Past Drug Use History: None Reported - Past Family History Brother(s) Family Medical History: Diabetes Mellitus, Hyperlipidemia, Hypertension Additional Family Medical History / Comment(s): Patient states she has 1 brother with no major medical problems. Father Family Medical History: Diabetes Mellitus, Hyperlipidemia, Hypertension Additional Family Medical History / Comment(s): DAD IS 70 YEARS OLD. Patient states she does not have any contact with her father and does not know his medical history. Mother Family Medical History: Chest Pain / Angina, CVA/TIA, Hyperlipidemia, Hypertension Additional Family Medical History / Comment(s): AGE 62 HAS LUPUS, blood pressure swings high to low General Exam - General Exam Comments Initial Comments: General: The patient is awake and alert, in no distress, and does not appear acutely ill. Skin: Skin is warm and dry and no rashes or lesions are noted. Eye: Pupils are equal, round and reactive to light, extra-ocular movements are intact; there is normal conjunctiva bilaterally. Ears, nose, mouth and throat: There are moist mucous membranes and no oral lesions. Neck: The neck is supple, there is no tenderness or JVD. Cardiovascular: There is a regular rate and rhythm. No murmur, rub or gallop is appreciated. Respiratory: To auscultation bilateral, no wheezing no rhonchi no distress respiratory [place] noticed Gastrointestinal: Under over the right flank area as well as right lower quadrant area positive bowel sounds no guarding no rebounds Back: There is no tenderness to palpation in the midline. There is no obvious deformity. Musculoskeletal: Normal ROM, no tenderness, There is no pedal edema. There is no calf tenderness or swelling. No cords were appreciated. Neurological: CN II-XII intact, Cranial nerves III through XII are intact. There are no obvious motor or sensory deficits. Coordination appears grossly intact. Speech is normal. Psychiatric: Cooperative, appropriate mood & affect, normal judgment. Limitations: physical limitation Course Vital Signs 04/15/18 04/15/18 04/15/18 15:53 16:58 18:15 Temperature 99.5 F Pulse Rate 127 H 113 H 110 H Respiratory 18 20 19 Rate Blood Pressure 162/97 159/97 161/94 O2 Sat by Pulse 98 99 99 Oximetry 04/15/18 18:45 Temperature Pulse Rate 106 H Respiratory 18 Rate Blood Pressure 165/86 O2 Sat by Pulse 98 Oximetry KG is sinus tachycardia ventricular rate is 113 ME interval is 132 QRS duration is 82 QT/QTc is 337/458 review of this EKG reveals T-wave inversion in lead [address] elevation or ST depression noticed Still has the positive urine, she is running fever off-and-on she spikes 10.6 and 24 hours on arrival pulse rate was 127 and lactate is 3.3 she be admitted to Dr. Key,s will consult Dr. Hansen CT abdomen was reviewed, it's unremarkable patient be admitted for UTI, early pyelonephritis with the IV antibiotics and be going to see Dr. Hansen Medical Decision Making - Lab Data Result diagrams: 04/15/18 16:35 04/15/18 16:35 Lab Results 04/15/18 04/15/18 04/15/18 Range/Units 16:05 16:35 16:35 WBC 12.2 H (3.8-10.6) k/uL RBC 4.78 (3.80-5.40) m/uL Hgb 13.4 (11.4-16.0) gm/dL Hct 40.3 (34.0-46.0) % MCV 84.3 (80.0-100.0) fL MCH 28.1 (25.0-35.0) pg MCHC 33.3 (31.0-37.0) g/dL RDW 15.0 (11.5-15.5) % Plt Count 374 (150-450) k/uL Neutrophils % 81 % Lymphocytes % 13 % Monocytes % 3 % Eosinophils % 1 % Basophils % 0 % Neutrophils # 10.0 H (1.3-7.7) k/uL Lymphocytes # 1.5 (1.0-4.8) k/uL Monocytes # 0.4 (0-1.0) k/uL Eosinophils # 0.2 (0-0.7) k/uL Basophils # 0.1 (0-0.2) k/uL PT (9.0-12.0) sec INR (<1.2) APTT (22.0-30.0) sec Sodium 142 (137-145) mmol/L Potassium 4.1 (3.5-5.1) mmol/L Chloride 104 (98-107) mmol/L Carbon Dioxide 17 L (22-30) mmol/L Anion Gap 21 mmol/L BUN 9 (7-17) mg/dL Creatinine 0.57 (0.52-1.04) mg/dL Est GFR (CKD-EPI)AfAm >90 (>60 ml/min/1.73 sqM) Est GFR (CKD-EPI)NonAf >90 (>60 ml/min/1.73 sqM) Glucose 192 H (74-99) mg/dL Plasma Lactic Acid Joce (0.7-2.0) mmol/L Calcium 10.0 (8.4-10.2) mg/dL Total Bilirubin 0.2 (0.2-1.3) mg/dL AST 23 (14-36) U/L ALT 31 (9-52) U/L Alkaline Phosphatase 101 (38-126) U/L Total Protein 7.2 (6.3-8.2) g/dL Albumin 4.5 (3.5-5.0) g/dL Urine Color Yellow Urine Appearance Cloudy H (Clear) Urine pH 5.0 (5.0-8.0) Ur Specific [place] 1.023 (1.001-1.035) Urine Protein Trace H (Negative) Urine Glucose (UA) Negative (Negative) Urine Ketones Trace H (Negative) Urine Blood Small H (Negative) Urine Nitrite Negative (Negative) Urine Bilirubin Negative (Negative) Urine Urobilinogen <2.0 (<2.0) mg/dL Ur Leukocyte Esterase Small H (Negative) Urine RBC 2 (0-5) /hpf Urine WBC 5 (0-5) /hpf Ur Squamous Epith Cells 3 (0-4) /hpf Urine Bacteria Rare H (None) /hpf Hyaline Casts 5 H (0-2) /lpf Urine Mucus Occasional H (None) /hpf 04/15/18 04/15/18 Range/Units 16:35 16:35 WBC (3.8-10.6) k/uL RBC (3.80-5.40) m/uL Hgb (11.4-16.0) gm/dL Hct (34.0-46.0) % MCV (80.0-100.0) fL MCH (25.0-35.0) pg MCHC (31.0-37.0) g/dL RDW (11.5-15.5) % Plt Count (150-450) k/uL Neutrophils % % Lymphocytes % % Monocytes % % Eosinophils % % Basophils % % Neutrophils # (1.3-7.7) k/uL Lymphocytes # (1.0-4.8) k/uL Monocytes # (0-1.0) k/uL Eosinophils # (0-0.7) k/uL Basophils # (0-0.2) k/uL PT 10.0 (9.0-12.0) sec INR 1.0 (<1.2) APTT 24.6 (22.0-30.0) sec Sodium (137-145) mmol/L Potassium (3.5-5.1) mmol/L Chloride (98-107) mmol/L Carbon Dioxide (22-30) mmol/L Anion Gap mmol/L BUN (7-17) mg/dL Creatinine (0.52-1.04) mg/dL Est GFR (CKD-EPI)AfAm (>60 ml/min/1.73 sqM) Est GFR (CKD-EPI)NonAf (>60 ml/min/1.73 sqM) Glucose (74-99) mg/dL Plasma Lactic Acid Joce 3.3 H* (0.7-2.0) mmol/L Calcium (8.4-10.2) mg/dL Total Bilirubin (0.2-1.3) mg/dL AST (14-36) U/L ALT (9-52) U/L Alkaline Phosphatase (38-126) U/L Total Protein (6.3-8.2) g/dL Albumin (3.5-5.0) g/dL Urine Color Urine Appearance (Clear) Urine pH (5.0-8.0) Ur Specific [place] (1.001-1.035) Urine Protein (Negative) Urine Glucose (UA) (Negative) Urine Ketones (Negative) Urine Blood (Negative) Urine Nitrite (Negative) Urine Bilirubin (Negative) Urine Urobilinogen (<2.0) mg/dL Ur Leukocyte Esterase (Negative) Urine RBC (0-5) /hpf Urine WBC (0-5) /hpf Ur Squamous Epith Cells (0-4) /hpf Urine Bacteria (None) /hpf Hyaline Casts (0-2) /lpf Urine Mucus (None) /hpf Disposition Clinical Impression: UTI (urinary tract infection), Sepsis Disposition: ADMITTED IP TO THIS HOSP Condition: Good Referrals: Maryellen Joel MD [Primary Care Provider] - 1-2 days
--- NOTE | 2018-04-15 19:41 | CT ---
EXAMINATION TYPE: CT abdomen pelvis w con DATE OF EXAM: 04/15/2018 HISTORY: RLQ and flank pain CT DLP: 1980.8mGycm Automated Exposure Control for Dose Reduction was Utilized. CONTRAST: CT scan of the abdomen and pelvis is performed with IV Contrast, patient injected with 100 mL of Isov ue 300. COMPARISON: 03/15/2018 FINDINGS: LUNG BASES: No significant abnormality is appreciated. LIVER/GB: Hepatic parenchyma is diffusely hypoattenuated in comparison to that of the spleen, most co mmonly seen in hepatic steatosis. This finding limits evaluation for hepatic masses. No gross evidenc e of hepatic mass is seen. No intrahepatic biliary ductal dilatation. No cholelithiasis. Gallbladder is contracted. PANCREAS: No significant abnormality is seen. No ductal dilatation. SPLEEN: No significant abnormality is seen. ADRENALS: No significant abnormality is seen. KIDNEYS: 1.0 cm exophytic left lower pole renal cyst is fluid attenuated. Adjacent to small to accura tely characterize lesion is seen in the lower pole as well as within the right midpole. No hydronephr osis. BOWEL: Bowel is nondilated. Few colonic diverticula are seen without pericolonic fat stranding. Appen radha is partially air-filled and partially high-density material filled that may represent prior inges [place]red[place] material but is not enlarged without periappendiceal fat stranding. UTERUS/ADNEXA: No gross abnormality seen. LYMPH NODES: No greater than 1cm abdominal or pelvic lymph nodes are appreciated. OSSEOUS STRUCTURES: No significant abnormality is seen. IMPRESSION: No significant finding is seen to account for patient's clinical symptoms. No evidence of appendicitis. Few colonic diverticula without evidence of acute diverticulitis. No hydronephrosis. H epatic steatosis is incidentally seen.
[2018-04-15] MEDS ORDERED: ACETAMINOPHEN TAB 325 MG TAB PO PRN (20:28)
[2018-04-15] MEDS ORDERED: MORPHINE SULFATE 4 MG/ML SYRINGE IV PRN (20:28)
[2018-04-15] MEDS ORDERED: NALOXONE 0.4 MG/ML 1 ML VIAL IV PRN (20:28)
[2018-04-15] MEDS ORDERED: ONDANSETRON 4 MG/2 ML VIAL IVP PRN (20:28)
[2018-04-15] MEDS ORDERED: TRIMETHOBENZAMIDE 300 MG CAP PO PRN (20:32)
[2018-04-15] MEDS ORDERED: CYANOCOBALAMIN 500 MCG TAB PO SCH (21:00)
[2018-04-15] MEDS ORDERED: RIVAROXABAN 20 MG TAB PO SCH (21:00)
[2018-04-15] MEDS ORDERED: tiZANidine 4 MG TAB PO SCH (21:00)
[2018-04-15] MEDS ORDERED: INSULIN DETEMIR 100 UNIT/ML 10 ML VIAL SQ SCH (21:00)
[2018-04-15] MEDS: FAMOTIDINE 20 MG TAB PO SCH (22:35)
[2018-04-15] MEDS: METOCLOPRAMIDE 10 MG TAB PO SCH (22:35)
[2018-04-15] MEDS: FERROUS SULFATE 325 MG TAB PO SCH (22:35)
[2018-04-15] MEDS: TOPIRAMATE 25 MG TAB PO SCH (22:36)
[2018-04-15] MEDS: diphenhydrAMINE 50 MG CAP PO SCH (22:37)
[2018-04-16] MEDS ORDERED: LEVOTHYROXINE 100 MCG TAB PO SCH (06:00)
[2018-04-16] MEDS ORDERED: LEVOTHYROXINE 50 MCG TAB PO SCH (06:00)
[2018-04-16 06:07] VITALS: RESP 18
[2018-04-16] MEDS: METOCLOPRAMIDE 10 MG TAB PO SCH ×3 (08:09→17:26)
[2018-04-16] MEDS: diphenhydrAMINE 50 MG CAP PO SCH ×2 (08:10→12:29)
[2018-04-16] MEDS: FAMOTIDINE 20 MG TAB PO SCH (08:10)
[2018-04-16] MEDS: FERROUS SULFATE 325 MG TAB PO SCH (08:11)
[2018-04-16] MEDS: TOPIRAMATE 25 MG TAB PO SCH (08:12)
[2018-04-16 08:14] LABS: Glucose,Whole Blood 168 mg/dL (75-99)
[2018-04-16] MEDS: INSULIN ASPART 100 UNIT/ML 1 ML 10 ML VIAL SQ SCH ×3 (08:17→17:25)
[2018-04-16] MEDS: HYDROmorphone 2 MG TAB PO PRN ×2 (08:26→14:37)
[2018-04-16] MEDS ORDERED: LOSARTAN 50 MG TAB PO SCH (09:00)
[2018-04-16] MEDS ORDERED: METOPROLOL SUCCINATE (ER) 100 MG TAB.ER.24H PO SCH (09:00)
[2018-04-16 11:24] LABS: Glucose,Whole Blood 126 mg/dL (75-99)
[2018-04-16] MEDS ORDERED: cefTRIAXone IN SWFI 2,000 MG/20 ML SYRINGE IVP SCH (15:00)
[2018-04-16 15:23] VITALS: BP 110/72; PULSE 85; TEMP 99.2
--- NOTE | 2018-04-16 16:16 | P.HPIM ---
History of Present Illness H&P Date: 04/16/18 Chief Complaint: Burning with urination This is a 37-year-old female with past medical history noted below significant for underlying mitochondrial syndrome, lupus anticoagulant disorder on anticoagulation, type 2 diabetes, and history of recurrent UTIs with more than 8 admissions over the past 3 months. Patient presented to the emergency room yesterday with what she describes as burning with urination and lower abdominal pain. She also said that she had a temperature at home of 100.4. She was evaluated in the emergency room and was found to be afebrile. Urinalysis showed small leukocyte esterase. Patient was started on IV ceftriaxone and was hydrated aggressively. Her initial lactate was 3.3 but repeat lactate was 2.0. She is currently finishing antibiotic course with cefuroxime at home as prescribed by infectious disease. Today when I saw her, patient appeared comfortable. Last urine culture was done 2 days ago. She will be discharged home in a stable condition to finish antibiotic course and follow-up with infectious disease in the office next week. No indication for inpatient hospitalization. Review of Systems Review of system: 14 points review of systems were obtained and were negative except to what were mentioned in the HPI. Past Medical History Past Medical History: Chest Pain / Angina, CVA/TIA, Diabetes Mellitus, Deep Vein Thrombosis (DVT), Neurologic Disorder, Syncope, Thyroid Disorder Additional Past Medical History / Comment(s): Dysautonomia-progressive neurological disorder, lupus/LUPUS ANTICOAGULANTS, 2004 CVA without residual, ana maria's disease, lymphedema Lt arm d/t DVTs , v-tach, pituitary microadenoma. "mitochondrial disease". patent foramen ovale, narcolepsy, gastropareis, IDDM type II, uti's, falls, orthostatic hypotension/syncope, migraines with hemiplegia, pernicious anemia, polycystic ovarian syndrome, neuropathy bilateral legs/fee-mild, uterine ablation August 2015/patient no longer has periods-had uterine ablation uti's. History of Any Multi-Drug Resistant Organisms: ESBL, MRSA Date of last positivie culture/infection: 03/09/17 MRSA/ 02/01/18 ESBL MDRO Source:: MRSA LEFT ARM,/ESBL URINE [facility] Past Surgical History: Ablation, Uterine Ablation Additional Past Surgical History / Comment(s): colonscopy/egd, angie, stress test. Past Anesthesia/Blood Transfusion Reactions: No Reported Reaction Additional Past Anesthesia/Blood Transfusion Reaction / Comment(s): patient states "It takes a lot of anesthesia for my body to react". Pt has received blood in past without reaction. Past Psychological History: Bipolar, Depression Additional Psychological History / Comment(s): Pt resides with her mom. She can walk short distances(room to room at home). She uses a wheelchair as well. She has a walker but doesn't use it. She does not drive she gets to appts by bus or cab. She has hx of suicide attempt in 2015 but states that depression is stable at this time. No animal exposures. No tobacco or alcohol use. Single without children. Does not relate to other family members with her genetic disorder Smoking Status: Never smoker Past Alcohol Use History: None Reported Additional Past Alcohol Use History / Comment(s): Patient is a lifelong nonsmoker. She denies any medical marijuana, marijuana, street drug or alcohol use. She resides with her mom. She can walk short distances and otherwise uses a wheelchair. She has a walker. She does not drive but usually gets appointments by [facility]. She has history of suicide attempt in 2014 but states depression is stable. No animal exposures. Patient is single without children. Patient denies any family members with her genetic disorder. Past Drug Use History: None Reported - Past Family History Brother(s) Family Medical History: Diabetes Mellitus, Hyperlipidemia, Hypertension Additional Family Medical History / Comment(s): Patient states she has 1 brother with no major medical problems. Father Family Medical History: Diabetes Mellitus, Hyperlipidemia, Hypertension Additional Family Medical History / Comment(s): DAD IS 70 YEARS OLD. Patient states she does not have any contact with her father and does not know his medical history. Mother Family Medical History: Chest Pain / Angina, CVA/TIA, Hyperlipidemia, Hypertension Additional Family Medical History / Comment(s): AGE 62 HAS LUPUS, blood pressure swings high to low Medications and Allergies Home Medications Medication Instructions Recorded Confirmed Type Cyanocobalamin [Vitamin B-12] 2,000 mcg PO DAILY 01/25/16 04/16/18 History Ferrous Sulfate [Iron (65 MG 325 mg PO BID 07/14/16 04/16/18 History Elemental)] Rivaroxaban [Xarelto] 20 mg PO HS 03/09/17 04/16/18 History tiZANidine [Zanaflex] 8 mg PO HS 03/09/17 04/16/18 History Levothyroxine Sodium [Synthroid] 50 mcg PO DAILY 07/29/17 04/16/18 History Levothyroxine Sodium [Synthroid] 200 mcg PO DAILY 07/29/17 04/16/18 History Metoclopramide [Reglan] 10 mg PO ACHS 07/29/17 04/16/18 History Insulin Aspart [NovoLOG Flexpen] See Protocol SQ AC-TID 09/13/17 04/16/18 History Topiramate [Topamax] 75 mg PO BID 09/13/17 04/16/18 History Trimethobenzamide HCl [Tigan] 300 mg PO TID PRN 09/25/17 04/16/18 History Metoprolol Succinate (ER) [Toprol 100 mg PO DAILY 10/24/17 04/16/18 History XL] Ranitidine HCl 150 mg PO BID 12/17/17 04/16/18 History HYDROmorphone [Dilaudid] 2 mg PO Q4HR PRN #60 tab 01/05/18 04/16/18 Rx Insulin Glargine [Lantus] 35 unit SQ HS 03/15/18 04/16/18 History Losartan [Cozaar] 50 mg PO DAILY 03/15/18 04/16/18 History diphenhydrAMINE [Benadryl] 50 mg PO TID #9 cap 03/28/18 04/16/18 Rx Non-Formulary Drug [Non Formulary 1,000 ml IVPB DAILY #30 misc 04/05/18 Rx Drug] Cefuroxime Axetil [Cefuroxime] 500 mg PO BID #14 tab 04/06/18 04/16/18 Rx Allergies Allergy/AdvReac Type Severity Reaction Status Date / Time barium sulfate Allergy Anaphylaxis Verified 04/16/18 12:28 diphtheria, pertussis, Allergy Unknown Verified 04/16/18 12:28 tetanus vacc doxepin [Doxepin] Allergy Anaphylaxis Verified 04/16/18 12:28 ertapenem [From Invanz] Allergy Rash/Hives Verified 04/16/18 12:28 influenza virus vaccine, Allergy Anaphylaxis Verified 04/16/18 12:28 specific [Influenza Virus Vacc,Specific] promethazine HCl Allergy Anaphylaxis Verified 04/16/18 12:28 [From Phenergan] doxycycline AdvReac Nausea & Verified 04/16/18 12:28 Vomiting & Diarrhea Pertussis Vaccines AdvReac fever/seizu Verified 04/16/18 12:28 re pseudoephedrine AdvReac Chest Pain Verified 04/16/18 12:28 pseudoephedrine HCl AdvReac Chest Pain Verified 04/16/18 12:28 [From Sudafed] sulfamethoxazole AdvReac Nausea & Verified 04/16/18 12:28 [From Bactrim] Vomiting trimethoprim [From Bactrim] AdvReac Nausea & Verified 04/16/18 12:28 Vomiting Physical Exam Vitals: Vital Signs Temp Pulse Pulse Resp BP BP Pulse Ox 04/16/18 14:28 99.2 F 85 18 110/72 96 04/16/18 05:25 98.1 F 72 18 105/59 97 04/15/18 21:30 99 F 109 H 20 171/79 97 04/15/18 20:43 99.0 F 102 H 18 155/85 98 04/15/18 20:00 73 20 159/68 99 04/15/18 18:45 106 H 18 165/86 98 04/15/18 18:15 110 H 19 161/94 99 04/15/18 16:58 113 H 20 159/97 99 Intake and Output 04/16/18 04/16/18 04/16/18 06:59 14:59 22:59 Intake Total 1600 400 Balance 1600 400 Intake: IV 400 0.9 400 Intake, IV Titration 1000 Amount Sodium Chloride 0.9% 1, 1000 000 ml @ 999 mls/hr IV . Q1H1M ONE Rx#:[id number] Oral 600 Other: Voiding Method Toilet Toilet # Voids 2 General: The patient is awake and alert, in no distress Eye: there is normal conjunctiva bilaterally. Neck: The neck is supple, there is no JVD. Cardiovascular: Normal S1-S2, no S3-S4, no murmurs. Respiratory: Lungs clear to auscultation bilaterally Gastrointestinal: Abdomen is soft, nontender Musculoskeletal: There is no pedal edema. Neurological:. Speech is normal. Skin: Skin is warm and dry Results CBC & Chem 7: 04/15/18 16:35 04/15/18 16:35 Labs: Abnormal Lab Results - Last 24 Hours (Table) 04/15/18 04/15/18 04/15/18 Range/Units 16:05 16:35 16:35 WBC 12.2 H (3.8-10.6) k/uL Neutrophils # 10.0 H (1.3-7.7) k/uL Carbon Dioxide 17 L (22-30) mmol/L Glucose 192 H (74-99) mg/dL POC Glucose (mg/dL) (75-99) mg/dL Plasma Lactic Acid Joce (0.7-2.0) mmol/L Urine Appearance Cloudy H (Clear) Urine Protein Trace H (Negative) Urine Ketones Trace H (Negative) Urine Blood Small H (Negative) Ur Leukocyte Esterase Small H (Negative) Urine Bacteria Rare H (None) /hpf Hyaline Casts 5 H (0-2) /lpf Urine Mucus Occasional H (None) /hpf 04/15/18 04/16/18 04/16/18 Range/Units 16:35 08:12 11:20 WBC (3.8-10.6) k/uL Neutrophils # (1.3-7.7) k/uL Carbon Dioxide (22-30) mmol/L Glucose (74-99) mg/dL POC Glucose (mg/dL) 168 H 126 H (75-99) mg/dL Plasma Lactic Acid Joce 3.3 H* (0.7-2.0) mmol/L Urine Appearance (Clear) Urine Protein (Negative) Urine Ketones (Negative) Urine Blood (Negative) Ur Leukocyte Esterase (Negative) Urine Bacteria (None) /hpf Hyaline Casts (0-2) /lpf Urine Mucus (None) /hpf Microbiology - Last 24 Hours (Table) 04/15/18 16:05 Urine Culture - Preliminary Urine,Voided Thrombosis Risk Factor Assmnt - Choose All That Apply Each Risk Factor Represents 3 Points: History of DVT/PE Thrombosis Risk Factor Assessment Total Risk Factor Score: 3 Thrombosis Risk Factor Assessment Level: Moderate Risk Assessment and Plan Assessment: This is a 37-year-old female with past medical history noted below significant for underlying mitochondrial syndrome, lupus anticoagulant disorder on anticoagulation, type 2 diabetes, and history of recurrent UTIs with more than 8 admissions over the past 3 months. Patient presented to the emergency room yesterday with what she describes as burning with urination and lower abdominal pain. She also said that she had a temperature at home of 100.4. She was evaluated in the emergency room and was found to be afebrile. Urinalysis showed small leukocyte esterase. Patient was started on IV ceftriaxone and was hydrated aggressively. Her initial lactate was 3.3 but repeat lactate was 2.0. She is currently finishing antibiotic course with cefuroxime at home as prescribed by infectious disease. Today when I saw her, patient appeared comfortable. Last urine culture was done 2 days ago. She will be discharged home in a stable condition to finish antibiotic course and follow-up with infectious disease in the office next week. No indication for inpatient hospitalization.
--- NOTE | 2018-04-16 16:16 | P.DS ---
Providers Date of admission: 04/15/18 20:28 Expected date of discharge: 04/16/18 Attending physician: Kun Morris Consults: 04/15/18 20:28 Consult Physician Stat Consulting Provider: Jerson Hansen Reason/Comments: UTIs recurrent, early pyelonephritis Do you want consulting provider notified?: Yes Primary care physician: [facility] Hospital Course: This is a 37-year-old female with past medical history noted below significant for underlying mitochondrial syndrome, lupus anticoagulant disorder on anticoagulation, type 2 diabetes, and history of recurrent UTIs with more than 8 admissions over the past 3 months. Patient presented to the emergency room yesterday with what she describes as burning with urination and lower abdominal pain. She also said that she had a temperature at home of 100.4. She was evaluated in the emergency room and was found to be afebrile. Urinalysis showed small leukocyte esterase. Patient was started on IV ceftriaxone and was hydrated aggressively. Her initial lactate was 3.3 but repeat lactate was 2.0. She is currently finishing antibiotic course with cefuroxime at home as prescribed by infectious disease. Today when I saw her, patient appeared comfortable. Last urine culture was done 2 days ago. She will be discharged home in a stable condition to finish antibiotic course and follow-up with infectious disease in the office next week. No indication for inpatient hospitalization. Patient Condition at Discharge: Fair Plan - Discharge Summary Discharge Rx Participant: No New Discharge Prescriptions: No Action Cyanocobalamin [Vitamin B-12] 2,000 mcg PO DAILY Ferrous Sulfate [Iron (65 MG Elemental)] 325 mg PO BID tiZANidine [Zanaflex] 8 mg PO HS Rivaroxaban [Xarelto] 20 mg PO HS Metoclopramide [Reglan] 10 mg PO ACHS Levothyroxine Sodium [Synthroid] 200 mcg PO DAILY Levothyroxine Sodium [Synthroid] 50 mcg PO DAILY Topiramate [Topamax] 75 mg PO BID Insulin Aspart [NovoLOG Flexpen] See Protocol SQ AC-TID Trimethobenzamide HCl [Tigan] 300 mg PO TID PRN PRN Reason: Nausea Metoprolol Succinate (ER) [Toprol XL] 100 mg PO DAILY Ranitidine HCl 150 mg PO BID HYDROmorphone [Dilaudid] 2 mg PO Q4HR PRN #60 tab PRN Reason: Moderate Pain Losartan [Cozaar] 50 mg PO DAILY Insulin Glargine [Lantus] 35 unit SQ HS diphenhydrAMINE [Benadryl] 50 mg PO TID #9 cap Non-Formulary Drug [Non Formulary Drug] 1,000 ml IVPB DAILY #30 misc Cefuroxime Axetil [Cefuroxime] 500 mg PO BID #14 tab Discharge Medication List Cyanocobalamin [Vitamin B-12] 2,000 mcg PO DAILY 01/25/16 [History] Ferrous Sulfate [Iron (65 MG Elemental)] 325 mg PO BID 07/14/16 [History] Rivaroxaban [Xarelto] 20 mg PO HS 03/09/17 [History] tiZANidine [Zanaflex] 8 mg PO HS 03/09/17 [History] Levothyroxine Sodium [Synthroid] 50 mcg PO DAILY 07/29/17 [History] Levothyroxine Sodium [Synthroid] 200 mcg PO DAILY 07/29/17 [History] Metoclopramide [Reglan] 10 mg PO ACHS 07/29/17 [History] Insulin Aspart [NovoLOG Flexpen] See Protocol SQ AC-TID 09/13/17 [History] Topiramate [Topamax] 75 mg PO BID 09/13/17 [History] Trimethobenzamide HCl [Tigan] 300 mg PO TID PRN 09/25/17 [History] Metoprolol Succinate (ER) [Toprol XL] 100 mg PO DAILY 10/24/17 [History] Ranitidine HCl 150 mg PO BID 12/17/17 [History] HYDROmorphone [Dilaudid] 2 mg PO Q4HR PRN #60 tab 01/05/18 [Rx] Insulin Glargine [Lantus] 35 unit SQ HS 03/15/18 [History] Losartan [Cozaar] 50 mg PO DAILY 03/15/18 [History] diphenhydrAMINE [Benadryl] 50 mg PO TID #9 cap 03/28/18 [Rx] Non-Formulary Drug [Non Formulary Drug] 1,000 ml IVPB DAILY #30 misc 04/05/18 [ Rx] Cefuroxime Axetil [Cefuroxime] 500 mg PO BID #14 tab 05/17/18 [Rx] Follow up Appointment(s)/Referral(s): Maryellen Joel MD [Primary Care Provider] - 1-2 days Discharge Disposition: HOME SELF-CARE
[2018-04-16 17:05] LABS: Glucose,Whole Blood 104 mg/dL (75-99)
--- NOTE | 2018-04-17 03:32 | CONS ---
CONSULTATION DATE OF SERVICE: 04/16/2018 REASON FOR CONSULTATION: UTI and recurrent early pyelonephritis. HISTORY OF PRESENT ILLNESS: The patient is a 37-year-old female with a past medical history significant for recurrent urinary tract infection and has been on multiple course of antibiotics. She is currently on her 2nd course of oral cefuroxime that was prescribed on , the off March [address] Hansen. The patient said that her symptoms of burning of urine continued to get worse and she started having pain in the abdominal area. The pain describing initially to be mostly in the right flank. This seemed to be coming down to the right upper quadrant area with intensity about 08 of 10. The patient is nauseated and an episode of vomiting. Denies having any diarrhea. The patient did have fever of 101 degrees Fahrenheit at home. With these symptoms the patient presented to the hospital. On arrival to the ER the patient did have fever of 99.5. The patient did have white count of 12.2, lactic acid was 3.2, repeat is 2. The patient did have a UA which did show small leukocyte esterases, 25 WBC. The patient also had a CT of abdomen and pelvis, however, this was done with IV contrast only, no oral contrast, which shows no significant findings is seen to account for the patient's clinical symptoms. No evidence of appendicitis. A few colonic diverticula without evidence of acute diverticulitis. The patient did receive a dose of Rocephin 2 g in the ER, has been subsequently admitted to the hospital. Infectious Disease was consulted for further recommendation. The patient did mention she did have slight improvement in her symptomatology after receiving the ceftriaxone. REVIEW OF SYSTEMS: CONSTITUTIONAL: Positive for weakness, feeling tired and generalized body aches and a fever at home. No fever has been recorded here. EYES: No complaint. ENT: Seasonal allergy. RESPIRATORY: No complaint. CARDIOVASCULAR: No complaint. GENITOURINARY: As per HPI. GASTROINTESTINAL: No diarrhea. MUSCULOSKELETAL: No complaint. PSYCHOLOGICAL: No complaint. NEUROLOGIC: No complaint. PAST MEDICAL HISTORY: Significant for a recurrent urinary tract infection, CVA, TIA, diabetes mellitus, DVT, syncope, hypothyroidism, dystonia, progressive, positive, history ESBL UTI and MRSA left arm infection. PAST SURGERY HISTORY: Uterine ablation, colonoscopy, EGD. SOCIAL HISTORY: No history of smoking, drinking or drug use. FAMILY HISTORY: Mother with history diabetes, hypertension, hyperlipidemia. Father history diabetes, hypertension, hyperlipidemia. ALLERGIES: To multiple medication including barium sulfate drug rash. without any problem. MEDICATION: The patient is currently on Tylenol, Pepcid, iron sulfate, Dilaudid, NovoLog, Levemir, Synthroid, Cozaar, Reglan, Toprol-XL, Narcan, Zofran, Xarelto, Zanaflex, Topamax, Tigan. EXAMINATION: Blood pressure is 110/72 with a pulse of 85, temperature 99.2. She is 92% on room air. GENERAL DESCRIPTION: Middle-aged female lying in bed in no distress. HEENT: No pallor or scleral icterus. Oral mucosa is moist. NECK: No thyromegaly. LUNGS: Unlabored breathing. Clear to auscultation anteriorly. No wheeze or crackle. HEART: S1, S2. Regular rate. ABDOMEN: Soft. No guarding or rigidity. No organomegaly. EXTREMITIES: No edema of feet. Examination of breasts: No mass palpable. NEUROLOGIC: Patient is awake, alert, oriented. Mood and affect is normal. LABS: Hemoglobin is 13.4, white count 12.2, BUN of 9, creatinine 0.57. Electrolytes are normal. Lactic acid of 3.2 down to 2.0. Liver enzymes are normal. Urine was mildly positive. DIAGNOSTIC IMPRESSION AND PLAN: Patient admitted to the hospital with abdominal pain, mostly in the right flank area. The patient did have urinary symptoms and has been treated in the outpatient setting with cefuroxime, however, the patient did not have any improvement. Did mention improvement with ceftriaxone the patient has received in the ER. Could be ceftriaxone sensitive pathogen. CT abdomen and pelvis was negative for any acute appendicitis though her pain was mostly located in the right lower quadrant and flank area. PLAN: 1. Patient started on Rocephin 2 g piggyback daily. 2. Gentle IV fluid. 3. Depending on the clinical response, will adjust her medications further if needed and the patient will be signed off to Dr. Hansen when he is back from vacation. MMODL / IJN: [id number] /
== END 2018-04-16 18:32 | disposition home health service (06) | DRG 690 ==
LOC: EC 15:47 → 5MS5E 20:28
PROVIDERS: ADMIT Internal Medicine; ATTEND Internal Medicine
DX: N12 Tubulo-interstitial nephritis, not specified as acute or chronic (principal); G81.90 Hemiplegia, unspecified affecting unspecified side; D68.62 Lupus anticoagulant syndrome; Q21.1 Atrial septal defect; E88.40 Mitochondrial metabolism disorder, unspecified; K57.30 Diverticulosis of large intestine without perforation or abscess without bleeding; G47.419 Narcolepsy without cataplexy; E28.2 Polycystic ovarian syndrome; E11.40 Type 2 diabetes mellitus with diabetic neuropathy, unspecified; Z79.4 Long term (current) use of insulin; E03.9 Hypothyroidism, unspecified; F32.9 Major depressive disorder, single episode, unspecified; Z79.01 Long term (current) use of anticoagulants; Z82.49 Family history of ischemic heart disease and other diseases of the circulatory system; Z83.3 Family history of diabetes mellitus; Z86.73 Personal history of transient ischemic attack (TIA), and cerebral infarction without residual deficits; Z87.440 Personal history of urinary (tract) infections; Z91.5 Personal history of self-harm; Z88.1 Allergy status to other antibiotic agents; Z88.2 Allergy status to sulfonamides; Z88.7 Allergy status to serum and vaccine; Z88.8 Allergy status to other drugs, medicaments and biological substances; G90.1 Familial dysautonomia [Riley-Day]; Z86.14 Personal history of Methicillin resistant Staphylococcus aureus infection; Z79.890 Hormone replacement therapy; Z79.899 Other long term (current) drug therapy; E06.3 Autoimmune thyroiditis; Z86.718 Personal history of other venous thrombosis and embolism; K31.84 Gastroparesis; Z91.81 History of falling; G43.909 Migraine, unspecified, not intractable, without status migrainosus; I95.1 Orthostatic hypotension; D51.0 Vitamin B12 deficiency anemia due to intrinsic factor deficiency
CPT/HCPCS: 36415; 74177; 80053; 81001; 83605; 85025; 85610; 85730; 87040; 87077; 87086; 87186; 93005; 96361; 96374; 99285

== ENCOUNTER 2018-04-17 14:23 | Emergency (ER) | payer MEDICARE, OTHER ==
[2018-04-17] MEDS ORDERED: SODIUM CHLORIDE 0.9% 1,000 ML IV STA ×3 (14:36→15:28)
[2018-04-17] MEDS ORDERED: cefTRIAXone 2,000 MG in SODIUM CHLORIDE 0.9% 100 ML IVPB STA (14:58)
[2018-04-17] MEDS ORDERED: cefTRIAXone IN SWFI 2,000 MG/20 ML SYRINGE IVP STA (15:06)
[2018-04-17 15:13] LABS: Basophils % (A) 0 %; Eosinophils # (A) 0.2 k/uL (0-0.7); Eosinophils % (A) 2 %; HCT 40.2 % (34.0-46.0); HGB 13.3 gm/dL (11.4-16.0); Lymphocytes # (A) 1.5 k/uL (1.0-4.8); Lymphocytes % (A) 13 %; MCH 28.3 pg (25.0-35.0); MCHC 33.2 g/dL (31.0-37.0); MCV 85.1 fL (80.0-100.0); Mean Platelet Volume 6.6; Monocytes # (A) 0.5 k/uL (0-1.0); Monocytes % (A) 4 %; Neutrophils % (A) 80 %; Platelet Count 370 k/uL (150-450); RBC 4.72 m/uL (3.80-5.40); WBC 11.3 k/uL (3.8-10.6)
[2018-04-17 15:16] LABS: Appearance,Urine Clear (Clear); Bilirubin,Urine Negative (Negative); Blood,Urine Trace (Negative); Color,Urine Yellow; Glucose,Urine (UA) Negative (Negative); Ketones,Urine Negative (Negative); Leukocyte Esterase,Urine Trace (Negative); Mucus,Urine Rare /hpf; Nitrite,Urine Negative (Negative); PH, Urine 6.5 (5.0-8.0); Protein,Urine Negative (Negative); RBC,Urine 2 /hpf (0-5); Specific Gravity,Urine 1.015 (1.001-1.035); Squamous Epithelial Cell,Urine 1 /hpf (0-4); Urobilinogen,Urine <2.0 mg/dL (<2.0); WBC,Urine 1 /hpf (0-5)
[2018-04-17 15:23] LABS: Partial Thromboplastin Time 25.6 sec (22.0-30.0); Prothrombin Time 9.9 sec (9.0-12.0)
[2018-04-17 15:26] LABS: ALT 31 U/L (9-52); AST 24 U/L (14-36); Albumin 4.4 g/dL (3.5-5.0); Alkaline Phosphatase 107 U/L (38-126); Anion Gap 19 mmol/L; Blood Urea Nitrogen 10 mg/dL (7-17); Calcium 9.8 mg/dL (8.4-10.2); Carbon Dioxide 18 mmol/L (22-30); Chloride 106 mmol/L (98-107); Glucose 201 mg/dL (74-99); Sodium 143 mmol/L (137-145); Total Bilirubin 0.2 mg/dL (0.2-1.3); Total Protein 7.2 g/dL (6.3-8.2)
--- NOTE | 2018-04-17 15:29 | ED ---
General Adult HPI - General Chief complaint: Abdominal Pain Stated complaint: UTI Time Seen by Provider: 04/17/18 14:29 Source: patient, RN notes reviewed, old records reviewed Mode of arrival: wheelchair Limitations: no limitations - History of Present Illness Initial comments: Patient 37-year-old female presented to the emergency room today with a chief complaint of abdominal, flank pain and possible kidney infection. Patient states that she was recently seen here in the emergency room and admitted. She states she was discharged home 2 days ago. She states that she is currently not on any antibiotics. She admits to history of urinary tract infections and sepsis in the past. States she has been feeling hot and had chills. She does admit that she called her infectious disease doctor who looked up the culture states that she should be placed on antibiotics and to come here to the emergency room. Patient states symptoms started last week. Patient denies any recent fever, chills, shortness of breath, chest pain, numbness or tingling, constipation or diarrhea, headaches or visual changes, or any other complaints. - Related Data Home Medications Medication Instructions Recorded Confirmed Cyanocobalamin [Vitamin B-12] 2,000 mcg PO DAILY 01/25/16 04/17/18 Ferrous Sulfate [Iron (65 MG 325 mg PO BID 07/14/16 04/17/18 Elemental)] Rivaroxaban [Xarelto] 20 mg PO HS 03/09/17 04/17/18 tiZANidine [Zanaflex] 8 mg PO HS 03/09/17 04/17/18 Levothyroxine Sodium [Synthroid] 50 mcg PO DAILY 07/29/17 04/17/18 Levothyroxine Sodium [Synthroid] 200 mcg PO DAILY 07/29/17 04/17/18 Metoclopramide [Reglan] 10 mg PO ACHS 07/29/17 04/17/18 Insulin Aspart [NovoLOG Flexpen] See Protocol SQ AC-TID 09/13/17 04/17/18 Topiramate [Topamax] 75 mg PO BID 09/13/17 04/17/18 Trimethobenzamide HCl [Tigan] 300 mg PO TID PRN 09/25/17 04/17/18 Metoprolol Succinate (ER) [Toprol 100 mg PO DAILY 10/24/17 04/17/18 XL] Ranitidine HCl 150 mg PO BID 12/17/17 04/17/18 Insulin Glargine [Lantus] 35 unit SQ HS 03/15/18 04/17/18 Losartan [Cozaar] 50 mg PO DAILY 03/15/18 04/17/18 Previous Rx's Medication Instructions Recorded HYDROmorphone [Dilaudid] 2 mg PO Q4HR PRN #60 tab 01/05/18 diphenhydrAMINE [Benadryl] 50 mg PO TID #9 cap 03/28/18 Non-Formulary Drug [Non Formulary 1,000 ml IVPB DAILY #30 misc 04/05/18 Drug] Cefuroxime Axetil [Cefuroxime] 500 mg PO BID #14 tab 04/06/18 Allergies Allergy/AdvReac Type Severity Reaction Status Date / Time barium sulfate Allergy Anaphylaxis Verified 04/17/18 14:27 diphtheria, pertussis, Allergy Unknown Verified 04/17/18 14:27 tetanus vacc doxepin [Doxepin] Allergy Anaphylaxis Verified 04/17/18 14:27 ertapenem [From Invanz] Allergy Rash/Hives Verified 04/17/18 14:27 influenza virus vaccine, Allergy Anaphylaxis Verified 04/17/18 14:27 specific [Influenza Virus Vacc,Specific] promethazine HCl Allergy Anaphylaxis Verified 04/17/18 14:27 [From Phenergan] doxycycline AdvReac Nausea & Verified 04/17/18 14:27 Vomiting & Diarrhea Pertussis Vaccines AdvReac fever/seizu Verified 04/17/18 14:27 re pseudoephedrine AdvReac Chest Pain Verified 04/17/18 14:27 pseudoephedrine HCl AdvReac Chest Pain Verified 04/17/18 14:27 [From Sudafed] sulfamethoxazole AdvReac Nausea & Verified 04/17/18 14:27 [From Bactrim] Vomiting trimethoprim [From Bactrim] AdvReac Nausea & Verified 04/17/18 14:27 Vomiting Review of Systems ROS Statement: Those systems with pertinent positive or pertinent negative responses have been documented in the HPI. ROS Other: All systems not noted in ROS Statement are negative. Past Medical History Past Medical History: Chest Pain / Angina, CVA/TIA, Diabetes Mellitus, Deep Vein Thrombosis (DVT), Neurologic Disorder, Syncope, Thyroid Disorder Additional Past Medical History / Comment(s): Dysautonomia-progressive neurological disorder, lupus/LUPUS ANTICOAGULANTS, 2003 CVA without residual, ana maria's disease, lymphedema Lt arm d/t DVTs , v-tach, pituitary microadenoma. "mitochondrial disease". patent foramen ovale, narcolepsy, gastropareis, IDDM type II, uti's, falls, orthostatic hypotension/syncope, migraines with hemiplegia, pernicious anemia, polycystic ovarian syndrome, neuropathy bilateral legs/fee-mild, uterine ablation August 2015/patient no longer has periods-had uterine ablation uti's. History of Any Multi-Drug Resistant Organisms: ESBL, MRSA Date of last positivie culture/infection: 03/09/17 MRSA/ 04/13/18 ESBL MDRO Source:: MRSA LEFT ARM,/ESBL URINE ECOLI Past Surgical History: Ablation, Uterine Ablation Additional Past Surgical History / Comment(s): colonscopy/egd, angie, stress test. Past Anesthesia/Blood Transfusion Reactions: No Reported Reaction Additional Past Anesthesia/Blood Transfusion Reaction / Comment(s): patient states "It takes a lot of anesthesia for my body to react". Pt has received blood in past without reaction. Past Psychological History: Bipolar, Depression Smoking Status: Never smoker Past Alcohol Use History: None Reported Past Drug Use History: None Reported - Past Family History Brother(s) Family Medical History: Diabetes Mellitus, Hyperlipidemia, Hypertension Additional Family Medical History / Comment(s): Patient states she has 1 brother with no major medical problems. Father Family Medical History: Diabetes Mellitus, Hyperlipidemia, Hypertension Additional Family Medical History / Comment(s): DAD IS 70 YEARS OLD. Patient states she does not have any contact with her father and does not know his medical history. Mother Family Medical History: Chest Pain / Angina, CVA/TIA, Hyperlipidemia, Hypertension Additional Family Medical History / Comment(s): AGE 62 HAS LUPUS, blood pressure swings high to low General Exam - General Exam Comments Initial Comments: General: The patient is awake and alert, in no distress, and does not appear acutely ill. Eye: Pupils are equal, round and reactive to light, extra-ocular movements are intact. No nystagmus. There is normal conjunctiva bilaterally. No signs of icterus. Ears, nose, mouth and throat: There are moist mucous membranes and no oral lesions. Neck: The neck is supple, there is no tenderness or JVD. Cardiovascular: There is a regular rate and rhythm. No murmur, rub or gallop is appreciated. Respiratory: Lungs are clear to auscultation, respirations are non-labored, breath sounds are equal. No wheezes, stridor, rales, or rhonchi. Gastrointestinal: Abdomen soft on palpation. Does have tenderness lower quadrants both right and left. No rebound, guarding Musculoskeletal: Normal ROM, no tenderness. Strength 5/5. Sensation intact. Pulses equal bilaterally 2+. Neurological: A&O x 3. CN II-XII intact, There are no obvious motor or sensory deficits. Coordination appears grossly intact. Speech is normal. Skin: Skin is warm and dry and no rashes or lesions are noted. Psychiatric: Cooperative, appropriate mood & affect, normal judgment. Limitations: no limitations Course Vital Signs 04/17/18 04/17/18 14:26 15:26 Temperature 100.4 F H 99.4 F Pulse Rate 119 H 81 Respiratory 18 18 Rate Blood Pressure 145/98 135/83 O2 Sat by Pulse 96 96 Oximetry Medical Decision Making - Medical Decision Making Patient's labs been reviewed. They do show improvement from 2 days ago when she was admitted to the hospital. Patient was given 2 g Rocephin here in the emergency room. Case was discussed with the attending physician Dr. Pradhan did discuss the case with infectious disease Dr. Hansen. He recommends 2 g Rocephin liter bolus and to discharge the patient to follow-up in the office tomorrow for continued IV antibiotics. Patient does have a history of nausea vomiting. Will be given Zofran to go home with. States is the reason that she has a port for infusions for dehydration. Patient advised return for any other concerns. - Lab Data Result diagrams: 04/17/18 14:55 04/17/18 14:55 Lab Results 04/17/18 04/17/18 04/17/18 Range/Units 14:50 14:50 14:55 WBC 11.3 H (3.8-10.6) k/uL RBC 4.72 (3.80-5.40) m/uL Hgb 13.3 (11.4-16.0) gm/dL Hct 40.2 (34.0-46.0) % MCV 85.1 (80.0-100.0) fL MCH 28.3 (25.0-35.0) pg MCHC 33.2 (31.0-37.0) g/dL RDW 15.0 (11.5-15.5) % Plt Count 370 (150-450) k/uL Neutrophils % 80 % Lymphocytes % 13 % Monocytes % 4 % Eosinophils % 2 % Basophils % 0 % Neutrophils # 9.0 H (1.3-7.7) k/uL Lymphocytes # 1.5 (1.0-4.8) k/uL Monocytes # 0.5 (0-1.0) k/uL Eosinophils # 0.2 (0-0.7) k/uL Basophils # 0.0 (0-0.2) k/uL PT (9.0-12.0) sec INR (<1.2) APTT (22.0-30.0) sec Sodium (137-145) mmol/L Potassium (3.5-5.1) mmol/L Chloride (98-107) mmol/L Carbon Dioxide (22-30) mmol/L Anion Gap mmol/L BUN (7-17) mg/dL Creatinine (0.52-1.04) mg/dL Est GFR (CKD-EPI)AfAm (>60 ml/min/1.73 sqM) Est GFR (CKD-EPI)NonAf (>60 ml/min/1.73 sqM) Glucose (74-99) mg/dL Plasma Lactic Acid Joce (0.7-2.0) mmol/L Calcium (8.4-10.2) mg/dL Total Bilirubin (0.2-1.3) mg/dL AST (14-36) U/L ALT (9-52) U/L Alkaline Phosphatase (38-126) U/L Total Protein (6.3-8.2) g/dL Albumin (3.5-5.0) g/dL Urine Color Yellow Urine Appearance Clear (Clear) Urine pH 6.5 (5.0-8.0) Ur Specific [place] 1.015 (1.001-1.035) Urine Protein Negative (Negative) Urine Glucose (UA) Negative (Negative) Urine Ketones Negative (Negative) Urine Blood Trace H (Negative) Urine Nitrite Negative (Negative) Urine Bilirubin Negative (Negative) Urine Urobilinogen <2.0 (<2.0) mg/dL Ur Leukocyte Esterase Trace H (Negative) Urine RBC 2 (0-5) /hpf Urine WBC 1 (0-5) /hpf Ur Squamous Epith Cells 1 (0-4) /hpf Urine Mucus Rare H (None) /hpf Urine HCG, Qual Not Detected (Not Detectd) 04/17/18 04/17/18 04/17/18 Range/Units 14:55 14:55 15:00 WBC (3.8-10.6) k/uL RBC (3.80-5.40) m/uL Hgb (11.4-16.0) gm/dL Hct (34.0-46.0) % MCV (80.0-100.0) fL MCH (25.0-35.0) pg MCHC (31.0-37.0) g/dL RDW (11.5-15.5) % Plt Count (150-450) k/uL Neutrophils % % Lymphocytes % % Monocytes % % Eosinophils % % Basophils % % Neutrophils # (1.3-7.7) k/uL Lymphocytes # (1.0-4.8) k/uL Monocytes # (0-1.0) k/uL Eosinophils # (0-0.7) k/uL Basophils # (0-0.2) k/uL PT 9.9 (9.0-12.0) sec INR 1.0 (<1.2) APTT 25.6 (22.0-30.0) sec Sodium 143 (137-145) mmol/L Potassium 4.0 (3.5-5.1) mmol/L Chloride 106 (98-107) mmol/L Carbon Dioxide 18 L (22-30) mmol/L Anion Gap 19 mmol/L BUN 10 (7-17) mg/dL Creatinine 0.50 L (0.52-1.04) mg/dL Est GFR (CKD-EPI)AfAm >90 (>60 ml/min/1.73 sqM) Est GFR (CKD-EPI)NonAf >90 (>60 ml/min/1.73 sqM) Glucose 201 H (74-99) mg/dL Plasma Lactic Acid Joce 2.7 H* (0.7-2.0) mmol/L Calcium 9.8 (8.4-10.2) mg/dL Total Bilirubin 0.2 (0.2-1.3) mg/dL AST 24 (14-36) U/L ALT 31 (9-52) U/L Alkaline Phosphatase 107 (38-126) U/L Total Protein 7.2 (6.3-8.2) g/dL Albumin 4.4 (3.5-5.0) g/dL Urine Color Urine Appearance (Clear) Urine pH (5.0-8.0) Ur Specific [place] (1.001-1.035) Urine Protein (Negative) Urine Glucose (UA) (Negative) Urine Ketones (Negative) Urine Blood (Negative) Urine Nitrite (Negative) Urine Bilirubin (Negative) Urine Urobilinogen (<2.0) mg/dL Ur Leukocyte Esterase (Negative) Urine RBC (0-5) /hpf Urine WBC (0-5) /hpf Ur Squamous Epith Cells (0-4) /hpf Urine Mucus (None) /hpf Urine HCG, Qual (Not Detectd) Disposition Clinical Impression: UTI (urinary tract infection) Disposition: HOME SELF-CARE Condition: Good Instructions: Urinary Tract Infection in Women (ED) Additional Instructions: Please use medication as discussed. Please follow-up with Dr. Hansen in the office tomorrow. Please return to emergency room if the symptoms increase or worsen or for any other concerns. Is patient prescribed a controlled substance at d/c from ED?: No Referrals: Maryellen Joel MD [Primary Care Provider] - 1-2 days Jerson Hnasen MD [STAFF PHYSICIAN] - 1-2 days Time of Disposition: 16:32
[2018-04-17] MEDS ORDERED: ONDANSETRON 4 MG ODT STARTER PACK 2 TAB BTL PO STA (16:32)
[2018-04-17 17:16] VITALS: BP 150/69; PULSE 78; RESP 16; TEMP 97.9
== END 2018-04-17 17:15 | disposition home or self-care (01) ==
LOC: EC 14:23
DX: N39.0 Urinary tract infection, site not specified (principal); E06.3 Autoimmune thyroiditis; E11.43 Type 2 diabetes mellitus with diabetic autonomic (poly)neuropathy; K31.84 Gastroparesis; E11.40 Type 2 diabetes mellitus with diabetic neuropathy, unspecified; F31.9 Bipolar disorder, unspecified; Z16.12 Extended spectrum beta lactamase (ESBL) resistance; Z86.14 Personal history of Methicillin resistant Staphylococcus aureus infection; Z86.69 Personal history of other diseases of the nervous system and sense organs; Z86.718 Personal history of other venous thrombosis and embolism; Z86.73 Personal history of transient ischemic attack (TIA), and cerebral infarction without residual deficits; Z88.1 Allergy status to other antibiotic agents; Z88.2 Allergy status to sulfonamides; Z88.7 Allergy status to serum and vaccine; Z88.8 Allergy status to other drugs, medicaments and biological substances; Z79.01 Long term (current) use of anticoagulants; Z79.4 Long term (current) use of insulin; Z79.899 Other long term (current) drug therapy
CPT/HCPCS: 99284; 96374; 96361 ×2; 36415; 80053; 83605; 85025; 85610; 85730; 81001; 81025; 87040; 87086; J0696; S0119

== ENCOUNTER 2018-04-28 07:48 | Day surgery (SDC) | payer MEDICARE, OTHER ==
[2018-04-27 10:15] VITALS: BMI 39.9
--- NOTE | 2018-04-28 06:32 | P.GSHP ---
History of Present Illness H&P Date: 04/28/18 CHIEF COMPLAINT: Poor peripheral IV access HISTORY OF PRESENT ILLNESS: The patient is a 37-year-old female diagnosed with mitochodrial disorder and poor peripheral access. She needs a Mediport placement for hydration and future IV medications. PAST MEDICAL HISTORY: See list PAST SURGICAL HISTORY: See list CURRENT MEDICATIONS: See list. ALLERGIES: See list. SOCIAL HISTORY: No active tobacco or alcohol use. FAMILY HISTORY: Noncontributory. REVIEW OF ORGAN SYSTEMS: CONSTITUTIONAL: No fever or chills. PHYSICAL EXAMINATION: Vital signs: Stable GENERAL: Well developed and in no acute distress. Pleasant. HEENT: No sclera icterus. Extraocular movements grossly intact. Moist buccal mucosa. Head is atraumatic, normocephalic. Hears conversational speech. No nasal drainage. NECK: Supple without lymphadenopathy. No JV distention. CHEST: Non-labored respirations and equal bilateral excursions. CARDIOVASCULAR: Regular rate and rhythm. Palpable 2+ radial pulses. ABDOMEN: Nontender. MUSCULOSKELETAL: No clubbing, cyanosis or edema. NEUROLOGIC: No focal or lateralizing signs. PSYCH: Appropriate affect. Alert and oriented to person, place and time. ASSESSMENT: 1. Mitochondrial disorder 2. Need for chemotherapeutic access. PLAN: 1. Agree with Port-A-Cath placement. Past Medical History Past Medical History: Chest Pain / Angina, CVA/TIA, Diabetes Mellitus, Deep Vein Thrombosis (DVT), Neurologic Disorder, Syncope, Thyroid Disorder Additional Past Medical History / Comment(s): Dysautonomia-progressive neurological disorder, lupus/LUPUS ANTICOAGULANTS, 2004 CVA without residual, ana maria's disease, lymphedema Lt arm d/t DVTs , v-tach, pituitary microadenoma. "mitochondrial disease". patent foramen ovale, narcolepsy, gastropareis, IDDM type II, uti's, falls, orthostatic hypotension/syncope, migraines with hemiplegia, pernicious anemia, polycystic ovarian syndrome, neuropathy bilateral legs/fee-mild, uterine ablation August 2015/patient no longer has periods-had uterine ablation uti's., midline access for fluids- current access issues has contacted dr quigley. History of Any Multi-Drug Resistant Organisms: ESBL, MRSA Date of last positivie culture/infection: 03/09/17 MRSA/ 04/13/18 ESBL MDRO Source:: MRSA LEFT ARM,/ESBL URINE ECOLI Past Surgical History: Ablation, Uterine Ablation Additional Past Surgical History / Comment(s): colonscopy/egd, angie, stress test. Past Anesthesia/Blood Transfusion Reactions: No Reported Reaction Additional Past Anesthesia/Blood Transfusion Reaction / Comment(s): patient states "It takes a lot of anesthesia for my body to react". Pt has received blood in past without reaction. Smoking Status: Never smoker - Past Family History Brother(s) Family Medical History: Diabetes Mellitus, Hyperlipidemia, Hypertension Additional Family Medical History / Comment(s): Patient states she has 1 brother with no major medical problems. Father Family Medical History: Diabetes Mellitus, Hyperlipidemia, Hypertension Additional Family Medical History / Comment(s): DAD IS 70 YEARS OLD. Patient states she does not have any contact with her father and does not know his medical history. Mother Family Medical History: Blood Disorder, Chest Pain / Angina, CVA/TIA, Hyperlipidemia, Hypertension Additional Family Medical History / Comment(s): AGE 62 HAS LUPUS, blood pressure swings high to low, antiphospholipid antibody syndrome Medications and Allergies Home Medications Medication Instructions Recorded Confirmed Type Cyanocobalamin [Vitamin B-12] 2,000 mcg PO DAILY 01/25/16 04/27/18 History Ferrous Sulfate [Iron (65 MG 325 mg PO BID 07/14/16 04/27/18 History Elemental)] Rivaroxaban [Xarelto] 20 mg PO HS 03/09/17 04/27/18 History tiZANidine [Zanaflex] 8 mg PO HS 03/09/17 04/27/18 History Levothyroxine Sodium [Synthroid] 50 mcg PO DAILY 07/29/17 04/27/18 History Levothyroxine Sodium [Synthroid] 200 mcg PO DAILY 07/29/17 04/27/18 History Metoclopramide [Reglan] 10 mg PO ACHS 07/29/17 04/27/18 History Insulin Aspart [NovoLOG Flexpen] See Protocol SQ AC-TID 09/13/17 04/27/18 History Topiramate [Topamax] 75 mg PO BID 09/13/17 04/27/18 History Trimethobenzamide HCl [Tigan] 300 mg PO TID PRN 09/25/17 04/27/18 History Metoprolol Succinate (ER) [Toprol 100 mg PO DAILY 10/24/17 04/27/18 History XL] Ranitidine HCl 150 mg PO BID 12/17/17 04/27/18 History Insulin Glargine [Lantus] 35 unit SQ HS 03/15/18 04/27/18 History Losartan [Cozaar] 50 mg PO DAILY 03/15/18 04/27/18 History Non-Formulary Drug [Non Formulary 1,000 ml IVPB DAILY #30 misc 04/05/18 Rx Drug] HYDROmorphone [Dilaudid] 2 mg PO Q4-6H PRN 04/27/18 04/27/18 History Meropenem [Merrem] 1 gm IVPB Q8H 04/27/18 04/27/18 History Allergies Allergy/AdvReac Type Severity Reaction Status Date / Time barium sulfate Allergy Anaphylaxis Verified 04/27/18 09:59 diphtheria, pertussis, Allergy Unknown Verified 04/27/18 09:59 tetanus vacc doxepin [Doxepin] Allergy Anaphylaxis Verified 04/27/18 09:59 ertapenem [From Invanz] Allergy Rash/Hives Verified 04/27/18 09:59 influenza virus vaccine, Allergy Anaphylaxis Verified 04/27/18 09:59 specific [Influenza Virus Vacc,Specific] promethazine HCl Allergy Anaphylaxis Verified 04/27/18 09:59 [From Phenergan] doxycycline AdvReac Nausea & Verified 04/27/18 09:59 Vomiting & Diarrhea Pertussis Vaccines AdvReac fever/seizu Verified 04/27/18 09:59 re pseudoephedrine AdvReac Chest Pain Verified 04/27/18 09:59 pseudoephedrine HCl AdvReac Chest Pain Verified 04/27/18 09:59 [From Sudafed] sulfamethoxazole AdvReac Nausea & Verified 04/27/18 09:59 [From Bactrim] Vomiting trimethoprim [From Bactrim] AdvReac Nausea & Verified 04/27/18 09:59 Vomiting
[~2018-04-28 07:48] MED LIST changes: -ALTEPLASE 2 MG VIAL (CATHFLO) IV STA; +DEXAMETHASONE SOD PHOSPHATE 10 MG/ML 1 ML VIAL IV ONE; +HYDROmorphone 0.5 MG/0.5 ML SYRINGE IVP PRN; +LACTATED RINGERS 1,000 ML IV SCH; +MORPHINE SULFATE 2 MG/ML SYRINGE IV PRN; +ONDANSETRON 4 MG/2 ML VIAL IVP ONE; +ONDANSETRON 4 MG/2 ML VIAL IVP PRN; +PROMETHAZINE INJ 6.25 MG in SODIUM CHLORIDE 0.9% 50 ML IVPB PRN; +Pre Op ABX Message 1 EACH MISC MISCELLANE ONE; +VANCOMYCIN 1,500 MG in SODIUM CHLORIDE 0.9% 250 ML IVPB ONE
[2018-04-28 08:49] VITALS: RESP 18; TEMP 97.3
[2018-04-28] MEDS ORDERED: LIDOCAINE 1% 20 ML VIAL (10MG/ML) FOR IV START INTRADERMA ONE (09:05)
[2018-04-28 09:09] LABS: Glucose,Whole Blood 146 mg/dL (75-99)
[2018-04-28] MEDS ORDERED: PROPOFOL 10 MG/ML 20 ML VIAL IV ONE (10:14)
[2018-04-28] MEDS ORDERED: fentaNYL (PF) 50 MCG/ML 2 ML AMP ONE (10:14)
[2018-04-28] MEDS ORDERED: MIDAZOLAM 2 MG/2 ML VIAL ONE (10:14)
[2018-04-28] MEDS ORDERED: HEPARIN SODIUM,PORCINE 100 UNIT/ML 5 ML VIAL IV ONE (10:43)
[2018-04-28] MEDS ORDERED: HEPARIN SODIUM,PORCINE 10,000 UNIT/ML 1 ML VIAL IV ONE (10:44)
[2018-04-28] MEDS ORDERED: BUPIVACAINE (PF) 0.5% 30 ML VIAL SQ ONE (10:44)
--- NOTE | 2018-04-28 11:12 | P.PCN ---
Date of Procedure: 04/28/18 Preoperative Diagnosis: Chemotherapeutic access Postoperative Diagnosis: Same Procedure(s) Performed: Placement of Port-A-Cath, intraoperative ultrasound, fluoroscopy less than 1 second Anesthesia: HUMA, local Surgeon: Leslie Mendez Estimated Blood Loss (ml): 10 Pathology: none sent Condition: stable
--- NOTE | 2018-04-28 11:31 | FL ---
EXAMINATION TYPE: FL guided central line placemt HISTORY: Fluoroscopy time Impression: 1. Fluoroscopy support provided to the referring physician. 1 seconds of fluoroscopy provided.
--- NOTE | 2018-04-28 11:42 | XR ---
EXAMINATION TYPE: XR chest 1V confirm line [facility] DATE OF EXAM: 04/28/2018 COMPARISON: 10/24/2017 HISTORY: Line placement after Mediport. TECHNIQUE: Single frontal view of the chest is obtained. FINDINGS: There is no focal air space opacity, pleural effusion, or pulmonary vascular congestion se en. A new right-sided Mediport has been placed terminating in the region of the brachiocephalic vein . No postprocedural pneumothorax is identified. The cardiac silhouette size is within normal limits. The osseous structures are intact. IMPRESSION: Newly placed right-sided Mediport is described above with no postprocedural pneumothorax identified.
[2018-04-28 12:05] LABS: Glucose,Whole Blood 193 mg/dL (75-99)
[2018-04-28 12:06] VITALS: BP 130/78; PULSE 89
--- NOTE | 2018-05-08 07:06 | P.PCN ---
Date of Procedure: 04/28/18 Description of Procedure: SURGEON: LESLIE MENDEZ MD RECORDS SPECIALIST: None. PREOPERATIVE DIAGNOSES: 1. Poor peripheral IV access 2. Need for chemotherapeutic access, long-term 3. Morbid obesity due to excess calories, BMI 39.9 4. Left upper extremity DVT 5. History of CVA 6. Lupus 7. Emily's disease 8. Insulin-dependent diabetes type 2 9. Pernicious anemia 10. 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 History of MRSA infection 12. History of recurrent urinary tract infection 13. Mitochondrial disorder 14. Pituitary adenoma 15. Lymphedema, left upper extremity 16. Progressive neurological disorder 17. Gastroesophageal reflux disease 18. History of V. tach POSTOPERATIVE DIAGNOSES: 1. Poor peripheral IV access 2. Need for chemotherapeutic access, long-term 3. Morbid obesity due to excess calories, BMI 39.9 4. Left upper extremity DVT 5. History of CVA 6. Lupus 7. Emily's disease 8. Insulin-dependent diabetes type 2 9. Pernicious anemia 10. 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 History of MRSA infection 12. History of recurrent urinary tract infection 13. Mitochondrial disorder 14. Pituitary adenoma 15. Lymphedema, left upper extremity 16. Progressive neurological disorder 17. Gastroesophageal reflux disease 18. History of V. tach PROCEDURES PERFORMED: 1. Ultrasound guided central venous access of the right internal jugular venous vein. 2. Fluoroscopic guidance for central venous access right internal jugular vein less than 1 seconds. 3. Placement of right internal jugular power port 6 Chinese by [employer]. ANESTHESIA: IV sedation with local. ESTIMATED BLOOD LOSS: 10 mL. SPECIMENS REMOVED: None. COMPLICATIONS: None. INDICATIONS: The patient is a 37-year-old female who presents for for chemotherapeutic access. Benefits and risks of surgical intervention were described including bleeding, infection, mechanical problems with her port. Informed consent was obtained. DESCRIPTION OR PROCEDURE: Patient was brought into the operating room, laid in supine position. After adequate IV sedation, the chest and right neck were prepped and draped in a standard sterile fashion including the shoulder with ChloraPrep. Timeout protocol was confirmed with the surgical team regarding the patient's name, procedure to be performed including preoperative medications for which she received IV antibiotics. Bilateral SCDs were placed. An ultrasound was used to capture views of the right internal jugular vein including right carotid artery, which was patent and without thrombus along its course. The right IJ was then localized using anesthetic for the skin. A 16 Chinese needle was used to access the IJ. A guidewire was advanced into the IJ with dark nonpulsatile venous blood. Two fingerbreadths distal to the clavicle, on the lateral third, a transverse 1.5 to 2 cm incision was deepened into the skin after localizing the skin. A pocket was created for the port. The port on the back table was flushed with heparinized saline and then attached to the catheter tubing. An adapter was fastened to the actual port site over the tubing. The port easily had fit snug into the pocket. A subcutaneous tunneler was placed along the open end of the tubing and brought out through the separate stab incision. Fluoroscopic guidance confirmed no kinking along the tubing and the port site. Next, the J-wire was exchanged for a catheter sheath for which the tubing was cut to 20 cm and then advanced through the catheter sheath. The Peel-away sheath was then removed and the tubing was secured at the junction of the superior vena cava as well as the right atrium. The tubing was found to be crossed however functional. This was all done under fluoroscopic guidance under 1 seconds. Easy pullback as well as return and aspiration was obtained of the port site. The skin incision was closed using layers using 3-0 Vicryl for the subcu followed by 4-0 Monocryl in a running subcuticular fashion. At the stick site this was also reapproximated using 4-0 Monocryl. The incisions were covered with Optifoam, The skin was cleansed and liquid glue was applied. A total of 20 mL of local anesthetic was placed. At the end of the procedure, needle, sponge, and instrument count was verified correct by surgical scrub technician. Heparin lock of 5 mL was placed. The patient was awoken and pain free and taken to the second stage postanesthesia care unit. The patient tolerated the procedure well. FINDINGS: 1. No thrombus encountered along the right carotid artery or internal jugular vein. 2. Access of the right internal jugular vein under ultrasound guidance. 3. Fluoroscopy of less than 1 seconds. Plan - Discharge Summary New Discharge Prescriptions: New Ondansetron [Zofran] 4 mg IVP ONCE PRN vial PRN Reason: Nausea And Vomiting Prochlorperazine Suppository [Compazine] 25 mg RECTAL BID #20 supp Continue Cyanocobalamin [Vitamin B-12] 2,000 mcg PO DAILY Ferrous Sulfate [Iron (65 MG Elemental)] 325 mg PO BID tiZANidine [Zanaflex] 8 mg PO HS Rivaroxaban [Xarelto] 20 mg PO HS Metoclopramide [Reglan] 10 mg PO ACHS Levothyroxine Sodium [Synthroid] 200 mcg PO DAILY Levothyroxine Sodium [Synthroid] 50 mcg PO DAILY Topiramate [Topamax] 75 mg PO BID Insulin Aspart [NovoLOG Flexpen] See Protocol SQ AC-TID Trimethobenzamide HCl [Tigan] 300 mg PO TID PRN PRN Reason: Nausea Metoprolol Succinate (ER) [Toprol XL] 100 mg PO DAILY Ranitidine HCl 150 mg PO BID Losartan [Cozaar] 50 mg PO DAILY Insulin Glargine [Lantus] 35 unit SQ HS Non-Formulary Drug [Non Formulary Drug] 1,000 ml IVPB DAILY #30 misc Meropenem [Merrem] 1 gm IVPB Q8H HYDROmorphone [Dilaudid] 2 mg PO Q4-6H PRN PRN Reason: Moderate Pain No Action Ondansetron Odt [Zofran Odt] 4 mg PO Q8HR PRN #2 tab PRN Reason: Nausea Discharge Medication List Cyanocobalamin [Vitamin B-12] 2,000 mcg PO DAILY 01/25/16 [History] Ferrous Sulfate [Iron (65 MG Elemental)] 325 mg PO BID 07/14/16 [History] Rivaroxaban [Xarelto] 20 mg PO HS 03/09/17 [History] tiZANidine [Zanaflex] 8 mg PO HS 03/09/17 [History] Levothyroxine Sodium [Synthroid] 50 mcg PO DAILY 07/29/17 [History] Levothyroxine Sodium [Synthroid] 200 mcg PO DAILY 07/29/17 [History] Metoclopramide [Reglan] 10 mg PO ACHS 07/29/17 [History] Insulin Aspart [NovoLOG Flexpen] See Protocol SQ AC-TID 09/13/17 [History] Topiramate [Topamax] 75 mg PO BID 09/13/17 [History] Trimethobenzamide HCl [Tigan] 300 mg PO TID PRN 09/25/17 [History] Metoprolol Succinate (ER) [Toprol XL] 100 mg PO DAILY 10/24/17 [History] Ranitidine HCl 150 mg PO BID 12/17/17 [History] Insulin Glargine [Lantus] 35 unit SQ HS 03/15/18 [History] Losartan [Cozaar] 50 mg PO DAILY 03/15/18 [History] Non-Formulary Drug [Non Formulary Drug] 1,000 ml IVPB DAILY #30 misc 04/05/18 [ Rx] HYDROmorphone [Dilaudid] 2 mg PO Q4-6H PRN 04/27/18 [History] Meropenem [Merrem] 1 gm IVPB Q8H 04/27/18 [History] Ondansetron [Zofran] 4 mg IVP ONCE PRN vial 04/28/18 [Rx] Prochlorperazine Suppository [Compazine] 25 mg RECTAL BID #20 supp 05/02/18 [Rx] Ondansetron Odt [Zofran Odt] 4 mg PO Q8HR PRN #2 tab 05/06/18 [Rx] Follow up Appointment(s)/Referral(s): Leslie Mendez MD [STAFF PHYSICIAN] - As Needed Patient Instructions/Handouts: *Surgery [facility] - (Anesthesia) Discharge Instructions Outpatient Surgery, Implanted Venous Access Port (GEN), How to Care for Your Implanted Venous Access Port (DC) Activity/Diet/Wound Care/Special Instructions: No lifting over 4 pounds 2 weeks. May shower. No bath tub soaks. Remove dressing 05/01/2018. Take Tylenol for pain or ear home pain meds. Start Xarelto 05/01/2018 call [facility] when you get home today:[phone] to set up a visit for access of mediport and supplies. Discharge Disposition: HOME SELF-CARE
== END 2018-04-28 13:08 | disposition home or self-care (01) ==
LOC: OR 07:48
PROVIDERS: ATTEND Surgery Plastic and Reconstructive Surgery
DX: I87.2 Venous insufficiency (chronic) (peripheral) (principal); E88.40 Mitochondrial metabolism disorder, unspecified; E66.01 Morbid (severe) obesity due to excess calories; Z68.39 Body mass index [BMI] 39.0-39.9, adult; I82.622 Acute embolism and thrombosis of deep veins of left upper extremity; Z86.73 Personal history of transient ischemic attack (TIA), and cerebral infarction without residual deficits; M32.9 Systemic lupus erythematosus, unspecified; E06.3 Autoimmune thyroiditis; D51.0 Vitamin B12 deficiency anemia due to intrinsic factor deficiency; E11.43 Type 2 diabetes mellitus with diabetic autonomic (poly)neuropathy; K31.84 Gastroparesis; E11.40 Type 2 diabetes mellitus with diabetic neuropathy, unspecified; G90.1 Familial dysautonomia [Riley-Day]; I47.2 Ventricular tachycardia; Q21.1 Atrial septal defect; G47.419 Narcolepsy without cataplexy; I95.1 Orthostatic hypotension; G43.909 Migraine, unspecified, not intractable, without status migrainosus; G81.90 Hemiplegia, unspecified affecting unspecified side; I89.0 Lymphedema, not elsewhere classified; D35.2 Benign neoplasm of pituitary gland; K21.9 Gastro-esophageal reflux disease without esophagitis; E28.2 Polycystic ovarian syndrome; Z79.01 Long term (current) use of anticoagulants; Z79.2 Long term (current) use of antibiotics; Z79.890 Hormone replacement therapy; Z79.4 Long term (current) use of insulin; Z79.899 Other long term (current) drug therapy; Z86.14 Personal history of Methicillin resistant Staphylococcus aureus infection; Z87.440 Personal history of urinary (tract) infections; Z91.81 History of falling; Z88.7 Allergy status to serum and vaccine; Z88.8 Allergy status to other drugs, medicaments and biological substances
CPT/HCPCS: 77001; 36561; C1788; J2250; J3370; J1644; J1642; J1100; J2405; J3010; J2704

== ENCOUNTER 2018-05-06 15:14 | Emergency (ER) | payer MEDICARE, OTHER ==
[2018-05-06] MEDS ORDERED: ONDANSETRON 4 MG/2 ML VIAL IVP STA (16:01)
[2018-05-06] MEDS ORDERED: HYDROcodone/APAP 5-325MG 1 EACH TAB PO STA (16:01)
[2018-05-06] MEDS ORDERED: SODIUM CHLORIDE 0.9% 1,000 ML IV ONE (16:01)
[2018-05-06 16:37] LABS: Basophils % (A) 0 %; Eosinophils # (A) 0.2 k/uL (0-0.7); Eosinophils % (A) 2 %; HCT 40.7 % (34.0-46.0); HGB 13.8 gm/dL (11.4-16.0); Lymphocytes # (A) 1.5 k/uL (1.0-4.8); Lymphocytes % (A) 16 %; MCH 28.5 pg (25.0-35.0); MCHC 33.9 g/dL (31.0-37.0); Mean Platelet Volume 6.7; Monocytes # (A) 0.5 k/uL (0-1.0); Monocytes % (A) 6 %; Neutrophils # (A) 7.2 k/uL (1.3-7.7); Neutrophils % (A) 75 %; Platelet Count 348 k/uL (150-450); RBC 4.84 m/uL (3.80-5.40); WBC 9.6 k/uL (3.8-10.6)
[2018-05-06 16:45] LABS: HCG,Qualitative Serum Not Detected
[2018-05-06 16:47] LABS: ALT 49 U/L (9-52); AST 45 U/L (14-36); Albumin 4.7 g/dL (3.5-5.0); Alkaline Phosphatase 96 U/L (38-126); Anion Gap 18 mmol/L; Blood Urea Nitrogen 12 mg/dL (7-17); Calcium 10.1 mg/dL (8.4-10.2); Carbon Dioxide 21 mmol/L (22-30); Chloride 103 mmol/L (98-107); Glucose 151 mg/dL (74-99); Lipase 63 U/L (23-300); Potassium 4.2 mmol/L (3.5-5.1); Sodium 142 mmol/L (137-145); Total Bilirubin 0.6 mg/dL (0.2-1.3); Total Protein 7.5 g/dL (6.3-8.2)
[2018-05-06 17:07] LABS: Appearance,Urine Cloudy (Clear); Bilirubin,Urine Negative (Negative); Blood,Urine Negative (Negative); Color,Urine Brown; Glucose,Urine (UA) Negative (Negative); Hyaline Casts,Urine 49 /lpf (0-2); Ketones,Urine 1+ (Negative); Leukocyte Esterase,Urine Negative (Negative); Mucus,Urine Occasional /hpf; Nitrite,Urine Negative (Negative); PH, Urine 5.5 (5.0-8.0); Protein,Urine 1+ (Negative); RBC,Urine 1 /hpf (0-5); Specific Gravity,Urine 1.019 (1.001-1.035); Squamous Epithelial Cell,Urine 11 /hpf (0-4); WBC,Urine 6 /hpf (0-5)
[2018-05-06] MEDS ORDERED: SODIUM CHLORIDE 0.9% 1,000 ML IV STA (17:09)
--- NOTE | 2018-05-06 20:06 | ED ---
Nausea/Vomiting/Diarrhea HPI - General Chief complaint: Nausea/Vomiting/Diarrhea Stated complaint: Vomiting, needs fluids Time Seen by Provider: 05/06/18 15:21 Source: patient Mode of arrival: wheelchair Limitations: no limitations - History of Present Illness Initial comments: 37-year-old female with past medical history as noted below presenting for evaluation of abdominal pain, nausea and vomiting, and dehydration. She states that she had talked with her infectious disease specialist Dr. Hansen yesterday who advised her to come to the ED if she should continue to have nausea and vomiting. She states that throughout yesterday and this morning she has been unable to keep any foods down due to her nausea and vomiting which she believes is due to her gastroparesis. She had been started on home IV infusions of normal saline to maintain her hydration but her insurance had denied them recently and she has been unable to maintain her infusions. She states that she has some right-sided abdominal pain as well however this is something that is intermittently and chronically present. She denies any other concerning symptoms. - Related Data Home Medications Medication Instructions Recorded Confirmed Cyanocobalamin [Vitamin B-12] 2,000 mcg PO DAILY 01/25/16 04/28/18 Ferrous Sulfate [Iron (65 MG 325 mg PO BID 07/14/16 04/28/18 Elemental)] Rivaroxaban [Xarelto] 20 mg PO HS 03/09/17 04/28/18 tiZANidine [Zanaflex] 8 mg PO HS 03/09/17 04/28/18 Levothyroxine Sodium [Synthroid] 50 mcg PO DAILY 07/29/17 04/28/18 Levothyroxine Sodium [Synthroid] 200 mcg PO DAILY 07/29/17 04/28/18 Metoclopramide [Reglan] 10 mg PO ACHS 07/29/17 04/28/18 Insulin Aspart [NovoLOG Flexpen] See Protocol SQ AC-TID 09/13/17 04/28/18 Topiramate [Topamax] 75 mg PO BID 09/13/17 04/28/18 Trimethobenzamide HCl [Tigan] 300 mg PO TID PRN 09/25/17 04/28/18 Metoprolol Succinate (ER) [Toprol 100 mg PO DAILY 10/24/17 04/28/18 XL] Ranitidine HCl 150 mg PO BID 12/17/17 04/28/18 Insulin Glargine [Lantus] 35 unit SQ HS 03/15/18 04/28/18 Losartan [Cozaar] 50 mg PO DAILY 03/15/18 04/28/18 HYDROmorphone [Dilaudid] 2 mg PO Q4-6H PRN 04/27/18 04/28/18 Meropenem [Merrem] 1 gm IVPB Q8H 04/27/18 04/28/18 Previous Rx's Medication Instructions Recorded Non-Formulary Drug [Non Formulary 1,000 ml IVPB DAILY #30 misc 04/05/18 Drug] Ondansetron [Zofran] 4 mg IVP ONCE PRN vial 04/28/18 Prochlorperazine Suppository 25 mg RECTAL BID #20 supp 05/02/18 [Compazine] Ondansetron Odt [Zofran Odt] 4 mg PO Q8HR PRN #2 tab 05/06/18 Allergies Allergy/AdvReac Type Severity Reaction Status Date / Time barium sulfate Allergy Anaphylaxis Verified 05/06/18 15:20 diphtheria, pertussis, Allergy Unknown Verified 05/06/18 15:20 tetanus vacc doxepin [Doxepin] Allergy Anaphylaxis Verified 05/06/18 15:20 ertapenem [From Invanz] Allergy Rash/Hives Verified 05/06/18 15:20 influenza virus vaccine, Allergy Anaphylaxis Verified 05/06/18 15:20 specific [Influenza Virus Vacc,Specific] promethazine HCl Allergy Anaphylaxis Verified 05/06/18 15:20 [From Phenergan] doxycycline AdvReac Nausea & Verified 05/06/18 15:20 Vomiting & Diarrhea Pertussis Vaccines AdvReac fever/seizu Verified 05/06/18 15:20 re pseudoephedrine AdvReac Chest Pain Verified 05/06/18 15:20 pseudoephedrine HCl AdvReac Chest Pain Verified 05/06/18 15:20 [From Sudafed] sulfamethoxazole AdvReac Nausea & Verified 05/06/18 15:20 [From Bactrim] Vomiting trimethoprim [From Bactrim] AdvReac Nausea & Verified 05/06/18 15:20 Vomiting Review of Systems ROS Statement: Those systems with pertinent positive or pertinent negative responses have been documented in the HPI. ROS Other: All systems not noted in ROS Statement are negative. Constitutional: Denies: fever, chills Eyes: Denies: eye pain, vision change ENT: Denies: ear pain, throat pain Respiratory: Denies: cough, dyspnea, wheezes Cardiovascular: Denies: chest pain, palpitations, dyspnea on exertion, syncope Endocrine: Reports: fatigue. Denies: polydipsia, polyuria Gastrointestinal: Reports: abdominal pain, nausea, vomiting. Denies: diarrhea, constipation, hematemesis, melena, hematochezia Genitourinary: Reports: frequency (At her baseline however increased). Denies: urgency, dysuria, hematuria, discharge Musculoskeletal: Denies: back pain, arthralgia, myalgia Skin: Denies: rash, lesions Neurological: Denies: headache, weakness Psychiatric: Denies: anxiety, depression Hematological/Lymphatic: Denies: easy bleeding, easy bruising Past Medical History Past Medical History: Chest Pain / Angina, CVA/TIA, Diabetes Mellitus, Deep Vein Thrombosis (DVT), Neurologic Disorder, Syncope, Thyroid Disorder Additional Past Medical History / Comment(s): Dysautonomia-progressive neurological disorder, lupus/LUPUS ANTICOAGULANTS, 2004 CVA without residual, ana maria's disease, lymphedema Lt arm d/t DVTs , v-tach, pituitary microadenoma. "mitochondrial disease". patent foramen ovale, narcolepsy, gastropareis, IDDM type II, uti's, falls, orthostatic hypotension/syncope, migraines with hemiplegia, pernicious anemia, polycystic ovarian syndrome, neuropathy bilateral legs/fee-mild, uterine ablation August 2015/patient no longer has periods-had uterine ablation uti's., midline access for fluids- current access issues has contacted dr hansen. History of Any Multi-Drug Resistant Organisms: ESBL, MRSA Date of last positivie culture/infection: 03/09/17 MRSA/ 04/13/18 ESBL MDRO Source:: MRSA LEFT ARM,/ESBL URINE [facility]OLI Past Surgical History: Ablation, Uterine Ablation Additional Past Surgical History / Comment(s): colonscopy/egd, angie, stress test. Past Anesthesia/Blood Transfusion Reactions: No Reported Reaction Additional Past Anesthesia/Blood Transfusion Reaction / Comment(s): patient states "It takes a lot of anesthesia for my body to react". Pt has received blood in past without reaction. Past Psychological History: Bipolar, Depression Smoking Status: Never smoker Past Alcohol Use History: None Reported Past Drug Use History: None Reported - Past Family History Brother(s) Family Medical History: Diabetes Mellitus, Hyperlipidemia, Hypertension Additional Family Medical History / Comment(s): Patient states she has 1 brother with no major medical problems. Father Family Medical History: Diabetes Mellitus, Hyperlipidemia, Hypertension Additional Family Medical History / Comment(s): DAD IS 70 YEARS OLD. Patient states she does not have any contact with her father and does not know his medical history. Mother Family Medical History: Blood Disorder, Chest Pain / Angina, CVA/TIA, Hyperlipidemia, Hypertension Additional Family Medical History / Comment(s): AGE 62 HAS LUPUS, blood pressure swings high to low, antiphospholipid antibody syndrome General Exam Limitations: no limitations General appearance: alert, in no apparent distress Head exam: Present: atraumatic, normocephalic, normal inspection Eye exam: Present: normal appearance, PERRL, EOMI. Absent: scleral icterus, conjunctival injection, periorbital swelling ENT exam: Present: mucous membranes dry, normal external ear exam. Absent: mucous membranes moist Neck exam: Present: normal inspection. Absent: tenderness, meningismus, lymphadenopathy Respiratory exam: Present: normal lung sounds bilaterally. Absent: respiratory distress, wheezes, rales, rhonchi, stridor Cardiovascular Exam: Present: normal rhythm, tachycardia GI/Abdominal exam: Present: soft, tenderness (Right upper quadrant). Absent: distended, guarding, rebound, rigid Rectal exam: Present: deferred Extremities exam: Present: normal inspection, full ROM, normal capillary refill. Absent: tenderness, pedal edema, joint swelling, calf tenderness Back exam: Present: normal inspection Neurological exam: Present: alert, oriented X3, CN II-XII intact Psychiatric exam: Present: normal affect, normal mood Skin exam: Present: warm, dry, intact, normal color. Absent: rash Course Vital Signs 05/06/18 05/06/18 05/06/18 15:17 18:53 18:54 Temperature 98.9 F Pulse Rate 116 H 96 98 Respiratory 18 16 16 Rate Blood Pressure 138/92 154/96 138/79 O2 Sat by Pulse 96 95 99 Oximetry 05/06/18 20:11 Temperature 98.4 F Pulse Rate 96 Respiratory 20 Rate Blood Pressure 142/96 O2 Sat by Pulse 98 Oximetry Medical Decision Making - Medical Decision Making 37-year-old female with past medical history as noted above presented for evaluation of dehydration, nausea, vomiting, abdominal pain. On physical examination she appears to be in no apparent distress however mucous members are dry and she is tachycardic. The remainder of her physical exam is at her baseline. Discussed the patient with her infectious disease specialist Dr. Hansen who agreed with plan to obtain labs and provide IV fluids and Zofran. She had a recent CT within the last month that showed no intra-abdominal abnormality specifically to the area of the gallbladder and he agreed that this is been worked up in the past and that she is not a candidate for surgery regardless. Blood work revealed no abnormalities and urinalysis appears to be contaminated. At the request of Dr. Hansen a urine culture was not sent as she had recently completed a course of IV meropenem. The patient was reevaluated and had improvement in all her symptoms. She was informed of all results and through shared decision making it was determined that she would be discharged with instructions to follow-up with her primary care physician but to return to this facility if her symptoms should worsen or persist. The patient acknowledged an understanding of all information provided and agreed with this plan of care. - Lab Data Result diagrams: 05/06/18 16:18 05/06/18 16:18 Lab Results 05/06/18 05/06/18 05/06/18 Range/Units 16:18 16:18 16:50 WBC 9.6 (3.8-10.6) k/uL RBC 4.84 (3.80-5.40) m/uL Hgb 13.8 (11.4-16.0) gm/dL Hct 40.7 (34.0-46.0) % MCV 84.0 (80.0-100.0) fL MCH 28.5 (25.0-35.0) pg MCHC 33.9 (31.0-37.0) g/dL RDW 15.0 (11.5-15.5) % Plt Count 348 (150-450) k/uL Neutrophils % 75 % Lymphocytes % 16 % Monocytes % 6 % Eosinophils % 2 % Basophils % 0 % Neutrophils # 7.2 (1.3-7.7) k/uL Lymphocytes # 1.5 (1.0-4.8) k/uL Monocytes # 0.5 (0-1.0) k/uL Eosinophils # 0.2 (0-0.7) k/uL Basophils # 0.0 (0-0.2) k/uL Sodium 142 (137-145) mmol/L Potassium 4.2 (3.5-5.1) mmol/L Chloride 103 (98-107) mmol/L Carbon Dioxide 21 L (22-30) mmol/L Anion Gap 18 mmol/L BUN 12 (7-17) mg/dL Creatinine 0.47 L (0.52-1.04) mg/dL Est GFR (CKD-EPI)AfAm >90 (>60 ml/min/1.73 sqM) Est GFR (CKD-EPI)NonAf >90 (>60 ml/min/1.73 sqM) Glucose 151 H (74-99) mg/dL Calcium 10.1 (8.4-10.2) mg/dL Total Bilirubin 0.6 (0.2-1.3) mg/dL AST 45 H (14-36) U/L ALT 49 (9-52) U/L Alkaline Phosphatase 96 (38-126) U/L Total Protein 7.5 (6.3-8.2) g/dL Albumin 4.7 (3.5-5.0) g/dL Lipase 63 (23-300) U/L HCG, Qual Not Detected Urine Color Brown Urine Appearance Cloudy H (Clear) Urine pH 5.5 (5.0-8.0) Ur Specific [place] 1.019 (1.001-1.035) Urine Protein 1+ H (Negative) Urine Glucose (UA) Negative (Negative) Urine Ketones 1+ H (Negative) Urine Blood Negative (Negative) Urine Nitrite Negative (Negative) Urine Bilirubin Negative (Negative) Urine Urobilinogen 2.0 (<2.0) mg/dL Ur Leukocyte Esterase Negative (Negative) Urine RBC 1 (0-5) /hpf Urine WBC 6 H (0-5) /hpf Ur Squamous Epith Cells 11 H (0-4) /hpf Hyaline Casts 49 H (0-2) /lpf Urine Mucus Occasional H (None) /hpf Disposition Clinical Impression: Nausea and vomiting, Abdominal pain, Dehydration Disposition: HOME SELF-CARE Condition: Stable Instructions: Acute Nausea and Vomiting (ED), Abdominal Pain (ED) Additional Instructions: Please use medication as discussed. Please follow up with family doctor if symptoms have not improved over the next two days. Please return to the emergency room if your symptoms increase or worsen or for any other concerns. Prescriptions: Ondansetron Odt [Zofran Odt] 4 mg PO Q8HR PRN #2 tab PRN Reason: Nausea Is patient prescribed a controlled substance at d/c from ED?: No Referrals: Maryellen Joel MD [Primary Care Provider] - 1-2 days Jerson Hansen MD [STAFF PHYSICIAN] - 1-2 days Time of Disposition: 20:06
[2018-05-06] MEDS ORDERED: ONDANSETRON 4 MG ODT STARTER PACK 2 TAB BTL PO STA (20:08)
[2018-05-06 20:12] VITALS: BP 142/96; PULSE 96; RESP 20; TEMP 98.4
== END 2018-05-06 20:23 | disposition home or self-care (01) ==
LOC: EC 15:14
DX: E86.0 Dehydration (principal); R10.9 Unspecified abdominal pain; R11.2 Nausea with vomiting, unspecified; R00.0 Tachycardia, unspecified; E11.43 Type 2 diabetes mellitus with diabetic autonomic (poly)neuropathy; K31.84 Gastroparesis; E11.42 Type 2 diabetes mellitus with diabetic polyneuropathy; D51.0 Vitamin B12 deficiency anemia due to intrinsic factor deficiency; E06.3 Autoimmune thyroiditis; Z79.01 Long term (current) use of anticoagulants; Z79.4 Long term (current) use of insulin; Z79.899 Other long term (current) drug therapy; Z88.1 Allergy status to other antibiotic agents; Z88.7 Allergy status to serum and vaccine; Z88.8 Allergy status to other drugs, medicaments and biological substances; Z91.048 Other nonmedicinal substance allergy status; Z86.14 Personal history of Methicillin resistant Staphylococcus aureus infection; Z86.73 Personal history of transient ischemic attack (TIA), and cerebral infarction without residual deficits; Z86.718 Personal history of other venous thrombosis and embolism; Z86.79 Personal history of other diseases of the circulatory system
CPT/HCPCS: 36415; 80053; 83690; 85025; 81001; 84703; 99284; 96374; 96375; 96361 ×4; J2405; J1642; S0119

== ENCOUNTER 2018-05-07 06:28 | Emergency (ER) | payer MEDICARE, OTHER ==
[2018-05-07 06:32] LABS: Glucose,Whole Blood 157 mg/dL (75-99)
[2018-05-07] MEDS ORDERED: SODIUM CHLORIDE 0.9% 500 ML IV STA (06:35)
--- NOTE | 2018-05-07 06:39 | ED ---
General Adult HPI - General Source: RN notes reviewed <Joe Owens - Last Filed: 05/07/18 06:39> <Ashvin Sahni - Last Filed: 05/07/18 12:12> - General Stated complaint: Weakness Time Seen by Provider: 05/07/18 06:28 - History of Present Illness Initial comments: This is a 37-year-old female who presents to the emergency department stating that she woke up at 1:00 with a right-sided headache and then woke up at 3 and noticed her left side to be weak. Patient states she has a previous history of migraines and strokes. Patient states she has a difficult time moving her arm and left leg. Patient states she has decreased visual kebede the left upper field. Patient denies any chest pain difficulty breathing or shortness of breath. Patient denies abdominal pain. Patient denies any fever chills or cough. (Joe Owens) - Related Data Home Medications Medication Instructions Recorded Confirmed Cyanocobalamin [Vitamin B-12] 2,000 mcg PO DAILY 01/25/16 05/07/18 Ferrous Sulfate [Iron (65 MG 325 mg PO BID 07/14/16 05/07/18 Elemental)] Rivaroxaban [Xarelto] 20 mg PO HS 03/09/17 05/07/18 tiZANidine [Zanaflex] 8 mg PO HS 03/09/17 05/07/18 Levothyroxine Sodium [Synthroid] 50 mcg PO DAILY 07/29/17 05/07/18 Levothyroxine Sodium [Synthroid] 200 mcg PO DAILY 07/29/17 05/07/18 Metoclopramide [Reglan] 10 mg PO ACHS 07/29/17 05/07/18 Insulin Aspart [NovoLOG Flexpen] See Protocol SQ AC-TID 09/13/17 05/07/18 Topiramate [Topamax] 75 mg PO BID 09/13/17 05/07/18 Trimethobenzamide HCl [Tigan] 300 mg PO TID PRN 09/25/17 05/07/18 Metoprolol Succinate (ER) [Toprol 100 mg PO DAILY 10/24/17 05/07/18 XL] Ranitidine HCl 150 mg PO BID 12/17/17 05/07/18 Insulin Glargine [Lantus] 35 unit SQ HS 03/15/18 05/07/18 Losartan [Cozaar] 50 mg PO DAILY 03/15/18 05/07/18 HYDROmorphone [Dilaudid] 2 mg PO Q4-6H PRN 04/27/18 05/07/18 Meropenem [Merrem] 1 gm IVPB Q8H 04/27/18 05/07/18 Previous Rx's Medication Instructions Recorded Non-Formulary Drug [Non Formulary 1,000 ml IVPB DAILY #30 misc 04/05/18 Drug] Ondansetron [Zofran] 4 mg IVP ONCE PRN vial 04/28/18 Prochlorperazine Suppository 25 mg RECTAL BID #20 supp 05/02/18 [Compazine] Ondansetron Odt [Zofran Odt] 4 mg PO Q8HR PRN #2 tab 05/06/18 Allergies Allergy/AdvReac Type Severity Reaction Status Date / Time barium sulfate Allergy Anaphylaxis Verified 05/06/18 15:20 diphtheria, pertussis, Allergy Unknown Verified 05/06/18 15:20 tetanus vacc doxepin [Doxepin] Allergy Anaphylaxis Verified 05/06/18 15:20 ertapenem [From Invanz] Allergy Rash/Hives Verified 05/06/18 15:20 influenza virus vaccine, Allergy Anaphylaxis Verified 05/06/18 15:20 specific [Influenza Virus Vacc,Specific] promethazine HCl Allergy Anaphylaxis Verified 05/06/18 15:20 [From Phenergan] doxycycline AdvReac Nausea & Verified 05/06/18 15:20 Vomiting & Diarrhea Pertussis Vaccines AdvReac fever/seizu Verified 05/06/18 15:20 re pseudoephedrine AdvReac Chest Pain Verified 05/06/18 15:20 pseudoephedrine HCl AdvReac Chest Pain Verified 05/06/18 15:20 [From Sudafed] sulfamethoxazole AdvReac Nausea & Verified 05/06/18 15:20 [From Bactrim] Vomiting trimethoprim [From Bactrim] AdvReac Nausea & Verified 05/06/18 15:20 Vomiting Review of Systems ROS Other: All systems not noted in ROS Statement are negative. <Joe Owens - Last Filed: 05/07/18 06:39> ROS Other: All systems not noted in ROS Statement are negative. <Helmreich,Ashvin N - Last Filed: 05/07/18 12:12> ROS Statement: Those systems with pertinent positive or pertinent negative responses have been documented in the HPI. Past Medical History Past Medical History: Chest Pain / Angina, CVA/TIA, Diabetes Mellitus, Deep Vein Thrombosis (DVT), Neurologic Disorder, Syncope, Thyroid Disorder Additional Past Medical History / Comment(s): Dysautonomia-progressive neurological disorder, lupus/LUPUS ANTICOAGULANTS, 2004 CVA without residual, ana maria's disease, lymphedema Lt arm d/t DVTs , v-tach, pituitary microadenoma. "mitochondrial disease". patent foramen ovale, narcolepsy, gastropareis, IDDM type II, uti's, falls, orthostatic hypotension/syncope, migraines with hemiplegia, pernicious anemia, polycystic ovarian syndrome, neuropathy bilateral legs/fee-mild, uterine ablation August 2015/patient no longer has periods-had uterine ablation uti's., midline access for fluids- current access issues has contacted dr quigley. History of Any Multi-Drug Resistant Organisms: ESBL, MRSA Date of last positivie culture/infection: 03/09/17 MRSA/ 04/13/18 ESBL MDRO Source:: MRSA LEFT ARM,/ESBL URINE ECOLI Past Surgical History: Ablation, Uterine Ablation Additional Past Surgical History / Comment(s): colonscopy/egd, angie, stress test. Past Anesthesia/Blood Transfusion Reactions: No Reported Reaction Additional Past Anesthesia/Blood Transfusion Reaction / Comment(s): patient states "It takes a lot of anesthesia for my body to react". Pt has received blood in past without reaction. Past Psychological History: Bipolar, Depression Smoking Status: Never smoker Past Alcohol Use History: None Reported Past Drug Use History: None Reported - Past Family History Brother(s) Family Medical History: Diabetes Mellitus, Hyperlipidemia, Hypertension Additional Family Medical History / Comment(s): Patient states she has 1 brother with no major medical problems. Father Family Medical History: Diabetes Mellitus, Hyperlipidemia, Hypertension Additional Family Medical History / Comment(s): DAD IS 70 YEARS OLD. Patient states she does not have any contact with her father and does not know his medical history. Mother Family Medical History: Blood Disorder, Chest Pain / Angina, CVA/TIA, Hyperlipidemia, Hypertension Additional Family Medical History / Comment(s): AGE 62 HAS LUPUS, blood pressure swings high to low, antiphospholipid antibody syndrome <Joe Owens - Last Filed: 05/07/18 06:39> General Exam <Joe Owens - Last Filed: 05/07/18 06:39> <Ashvin Sahni - Last Filed: 05/07/18 12:12> - General Exam Comments Initial Comments: GENERAL: Patient is well-developed and well-nourished. Patient is nontoxic and well- hydrated and is in no acute distress. ENT: Neck is soft and supple. No significant lymphadenopathy is noted. Oropharynx is clear. Moist mucous membranes. Neck has full range of motion without eliciting any pain. EYES: The sclera were anicteric and conjunctiva were pink and moist. Extraocular movements were intact and pupils were equal round and reactive to light. Eyelids were unremarkable. PULMONARY: Unlabored respirations. Good breath sounds bilaterally. No audible rales rhonchi or wheezing was noted. CARDIOVASCULAR: There is a regular rate and rhythm without any murmurs gallops or rubs. Femoral pulses are equal bilaterally ABDOMEN: Soft and nontender with normal bowel sounds. No palpable organomegaly was noted. There is no palpable pulsatile mass. SKIN: Skin is clear with no lesions or rashes and otherwise unremarkable. NEUROLOGIC: Patient is alert and oriented x3. Cranial nerves II through XII are grossly intact. Patient's weakness on the left seemed to be intermittent and changed with distraction. Patient was able to fully open her hand and close her hand but she did extremely slow. Patient was able to lift up her left leg off the bed slowly wears the right when she lifts up quickly. Patient haddisturbance MUSCULOSKELETAL: Normal extremities with adequate strength and full range of motion. No lower extremity swelling or edema. No calf tenderness. LYMPHATICS: No significant lymphadenopathy is noted PSYCHIATRIC: Normal psychiatric evaluation. Normal interpersonal interactions appears functionally intact in deals appropriately with others. No signs of depression. No signs of anxiety. (Joe Owens) Vital Signs 05/07/18 05/07/18 05/07/18 06:29 06:44 06:59 Temperature 98.7 F Pulse Rate 82 78 83 Respiratory 16 16 16 Rate Blood Pressure 152/99 142/74 127/64 O2 Sat by Pulse 95 98 98 Oximetry 05/07/18 05/07/18 05/07/18 07:14 07:29 07:44 Temperature Pulse Rate 77 78 77 Respiratory 18 18 18 Rate Blood Pressure 130/83 131/85 134/82 O2 Sat by Pulse 100 98 98 Oximetry 05/07/18 05/07/18 05/07/18 07:59 08:14 08:29 Temperature Pulse Rate 78 80 79 Respiratory 18 18 18 Rate Blood Pressure 128/80 145/88 141/78 O2 Sat by Pulse 99 99 99 Oximetry 05/07/18 05/07/18 05/07/18 08:44 09:14 09:25 Temperature Pulse Rate 77 74 70 Respiratory 18 18 18 Rate Blood Pressure 126/71 171/90 146/79 O2 Sat by Pulse 100 98 98 Oximetry 05/07/18 05/07/18 09:55 11:00 Temperature Pulse Rate 74 78 Respiratory 18 18 Rate Blood Pressure 137/82 134/77 O2 Sat by Pulse 98 97 Oximetry EKG Findings - EKG Comments: EKG Findings:: EKG: Normal sinus rhythm, T-wave inversion in lead 3, no ST segment elevation or depression. Rate of 85, W[place] interval 140, QRS duration 88, QTC 461 <Ashvin Sahni - Last Filed: 05/07/18 12:12> Medical Decision Making <Joe Owens - Last Filed: 05/07/18 06:39> - Lab Data Result diagrams: 05/07/18 07:14 05/07/18 07:14 <Ashvin Sahni - Last Filed: 05/07/18 12:12> - Medical Decision Making Dr. Sahni could be taking over the care of this patient at 7 AM (Joe Owens) Patient's care was signed out awaiting stroke workup. CT was negative for intracranial hemorrhage or mass effect, CT angiography was negative for acute occlusion however there was small caliber vessels and concern for vascular spasm. Patient had an MRI in December 2017 that showed a left A1 branch of a ERIKA occlusion. This does not fit with the patient's symptoms at this time. Laboratory workup is unremarkable. Given the patient's complicated medical history including mitochondrial disease, previous CVA, and complex migraine it is difficult to determine the exact cause of this strokelike presentation. Patient is outside of the TPA window within 30 minutes of arrival. Case is discussed with Dr. Herrera, who is stroke interventionalist, and we both agree the patient is not a TPA candidate. Patient does report she has had similar weakness with migraine in the past however these symptoms do not resolve quickly , making it difficult to exclude stroke. This patient is comfortable medical history, case is discussed with her primary care physician who recommends transfer at this time for further neurology evaluation. Patient will be transferred to [facility], accepting physician is Dr. Tovar. ([facility]) - Lab Data Lab Results 05/07/18 05/07/18 05/07/18 Range/Units 06:31 07:14 07:14 WBC 7.0 (3.8-10.6) k/uL RBC 4.09 (3.80-5.40) m/uL Hgb 11.6 (11.4-16.0) gm/dL Hct 34.9 (34.0-46.0) % MCV 85.3 (80.0-100.0) fL MCH 28.4 (25.0-35.0) pg MCHC 33.3 (31.0-37.0) g/dL RDW 15.0 (11.5-15.5) % Plt Count 308 (150-450) k/uL Neutrophils % 56 % Lymphocytes % 30 % Monocytes % 8 % Eosinophils % 3 % Basophils % 0 % Neutrophils # 3.9 (1.3-7.7) k/uL Lymphocytes # 2.1 (1.0-4.8) k/uL Monocytes # 0.6 (0-1.0) k/uL Eosinophils # 0.2 (0-0.7) k/uL Basophils # 0.0 (0-0.2) k/uL PT (9.0-12.0) sec INR (<1.2) APTT (22.0-30.0) sec Sodium (137-145) mmol/L Potassium (3.5-5.1) mmol/L Chloride (98-107) mmol/L Carbon Dioxide (22-30) mmol/L Anion Gap mmol/L BUN (7-17) mg/dL Creatinine (0.52-1.04) mg/dL Est GFR (CKD-EPI)AfAm (>60 ml/min/1.73 sqM) Est GFR (CKD-EPI)NonAf (>60 ml/min/1.73 sqM) Glucose (74-99) mg/dL POC Glucose (mg/dL) 157 H (75-99) mg/dL POC Glu Site Inspector ID Heidi Cole Calcium (8.4-10.2) mg/dL Total Bilirubin (0.2-1.3) mg/dL AST (14-36) U/L ALT (9-52) U/L Alkaline Phosphatase (38-126) U/L Total Creatine Kinase 44 (30-135) U/L CK-MB (CK-2) 0.2 (0.0-2.4) ng/mL CK-MB (CK-2) Rel Index 0.5 Troponin I <0.012 (0.000-0.034) ng/mL Total Protein (6.3-8.2) g/dL Albumin (3.5-5.0) g/dL 05/07/18 05/07/18 Range/Units 07:14 07:14 WBC (3.8-10.6) k/uL RBC (3.80-5.40) m/uL Hgb (11.4-16.0) gm/dL Hct (34.0-46.0) % MCV (80.0-100.0) fL MCH (25.0-35.0) pg MCHC (31.0-37.0) g/dL RDW (11.5-15.5) % Plt Count (150-450) k/uL Neutrophils % % Lymphocytes % % Monocytes % % Eosinophils % % Basophils % % Neutrophils # (1.3-7.7) k/uL Lymphocytes # (1.0-4.8) k/uL Monocytes # (0-1.0) k/uL Eosinophils # (0-0.7) k/uL Basophils # (0-0.2) k/uL PT 10.7 (9.0-12.0) sec INR 1.1 (<1.2) APTT 24.5 (22.0-30.0) sec Sodium 139 (137-145) mmol/L Potassium 4.3 (3.5-5.1) mmol/L Chloride 107 (98-107) mmol/L Carbon Dioxide 20 L (22-30) mmol/L Anion Gap 12 mmol/L BUN 11 (7-17) mg/dL Creatinine 0.40 L (0.52-1.04) mg/dL Est GFR (CKD-EPI)AfAm >90 (>60 ml/min/1.73 sqM) Est GFR (CKD-EPI)NonAf >90 (>60 ml/min/1.73 sqM) Glucose 143 H (74-99) mg/dL POC Glucose (mg/dL) (75-99) mg/dL POC Glu Site Inspector ID Calcium 9.1 (8.4-10.2) mg/dL Total Bilirubin 0.3 (0.2-1.3) mg/dL AST 30 (14-36) U/L ALT 40 (9-52) U/L Alkaline Phosphatase 77 (38-126) U/L Total Creatine Kinase (30-135) U/L CK-MB (CK-2) (0.0-2.4) ng/mL CK-MB (CK-2) Rel Index Troponin I (0.000-0.034) ng/mL Total Protein 6.1 L (6.3-8.2) g/dL Albumin 3.7 (3.5-5.0) g/dL Critical Care Time Critical Care Time: Yes Total Critical Care Time: 35 <Ashvin Sahni - Last Filed: 05/07/18 12:12> Disposition <Joe Owens - Last Filed: 05/07/18 06:39> Is patient prescribed a controlled substance at d/c from ED?: No Decision to Admit Reason: Admit from EC Decision Date: 05/07/18 Decision Time: 11:20 - Out of Hospital Transfer - Req. 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
--- NOTE | 2018-05-07 07:08 | CT ---
EXAMINATION TYPE: CT brain wo con for TPA DATE OF EXAM: 05/07/2018 COMPARISON: NONE HISTORY: Weakness CT DLP: 1167.70 mGycm Automated exposure control for dose reduction was used. FINDINGS: Ventricles and sulci appear normal. There is no mass effect nor midline shift. There is no sign of in tracranial hemorrhage. The calvarium is intact. IMPRESSION: Negative head CT scan.
--- NOTE | 2018-05-07 07:12 | CT ---
EXAMINATION TYPE: CT angio head neck DATE OF EXAM: 05/07/2018 HISTORY: r/o stroke weakness COMPARISON: NONE CT DLP: 448.30 mGycm. Automated Exposure Control for Dose Reduction was Utilized. TECHNIQUE: CTA scan of the neck is performed with IV Contrast, patient injected with 65 mL of Isovue 370, axial images are obtained, coronal and sagittal reformatted images are reviewed. Three-D recons tructed images are created on an independent workstation and reviewed. FINDINGS: The aortic arch appears normal. There is no evidence of aneurysm or dissection. There is normal branc zandra pattern of the great vessels on the aortic arch. There is arterial flow in the vertebral arterie s bilaterally. Right vertebral artery is larger than the left. There is arterial flow in the common i nternal and external carotid arteries bilaterally. There is no evidence of stenosis. The carotid figueroa ry bifurcations are widely patent. There is no evidence of aneurysm or dissection. There is arterial flow in the vertebrobasilar artery system. Basilar artery fills from the right side . There is arterial flow in the anterior middle and posterior cerebral arteries. There is no evidence o f aneurysm. I see no neovascularity. There is normal contrast opacification of the venous sinuses. Th e intracranial arteries are relatively small for the patient's age. IMPRESSION: Negative CT angiogram of the neck. The intracranial arteries appear relatively small in diameter. Clinical significance is not clear. Th is could relate to diffuse spasm.
[2018-05-07 07:33] LABS: ALT 40 U/L (9-52); AST 30 U/L (14-36); Albumin 3.7 g/dL (3.5-5.0); Alkaline Phosphatase 77 U/L (38-126); Anion Gap 12 mmol/L; Blood Urea Nitrogen 11 mg/dL (7-17); Calcium 9.1 mg/dL (8.4-10.2); Carbon Dioxide 20 mmol/L (22-30); Chloride 107 mmol/L (98-107); Glucose 143 mg/dL (74-99); Potassium 4.3 mmol/L (3.5-5.1); Sodium 139 mmol/L (137-145); Total Bilirubin 0.3 mg/dL (0.2-1.3); Total Protein 6.1 g/dL (6.3-8.2)
[2018-05-07 07:39] VITALS: RESP 18
[2018-05-07] MEDS ORDERED: diphenhydrAMINE 50 MG/ML 1 ML VIAL IVP STA (07:40)
[2018-05-07] MEDS ORDERED: SODIUM CHLORIDE 0.9% 500 ML IV ONE (07:40)
[2018-05-07] MEDS ORDERED: METOCLOPRAMIDE 5 MG/ML 2 ML VIAL IVP STA (07:40)
[2018-05-07] MEDS ORDERED: ASPIRIN 325 MG TAB PO STA (07:41)
[2018-05-07 07:42] LABS: Creatine Kinase 44 U/L (30-135)
[2018-05-07 07:55] LABS: Creatine Kinase MB 0.2 ng/mL (0.0-2.4); INR 1.1 (<1.2); Partial Thromboplastin Time 24.5 sec (22.0-30.0); Prothrombin Time 10.7 sec (9.0-12.0); Troponin I <0.012 ng/mL (0.000-0.034)
[2018-05-07 08:12] LABS: Basophils % (A) 0 %; Eosinophils # (A) 0.2 k/uL (0-0.7); Eosinophils % (A) 3 %; HCT 34.9 % (34.0-46.0); HGB 11.6 gm/dL (11.4-16.0); Lymphocytes # (A) 2.1 k/uL (1.0-4.8); Lymphocytes % (A) 30 %; MCH 28.4 pg (25.0-35.0); MCHC 33.3 g/dL (31.0-37.0); MCV 85.3 fL (80.0-100.0); Mean Platelet Volume 6.9; Monocytes # (A) 0.6 k/uL (0-1.0); Monocytes % (A) 8 %; Neutrophils # (A) 3.9 k/uL (1.3-7.7); Neutrophils % (A) 56 %; Platelet Count 308 k/uL (150-450); RBC 4.09 m/uL (3.80-5.40)
--- NOTE | 2018-05-07 08:50 | XR ---
EXAMINATION TYPE: XR chest 2V DATE OF EXAM: 05/07/2018 COMPARISON: 04/28/2018 TECHNIQUE: PA and lateral views submitted. HISTORY: Altered mental status FINDINGS: The lungs are clear and there is no pneumothorax, pleural effusion, or focal pneumonia. Mediport ca theter seen tip overlying the heart size stable. IMPRESSION: 1. No acute process.
[2018-05-07] MEDS ORDERED: KETOROLAC 30 MG/ML 1 ML VIAL IVP STA (09:01)
[2018-05-07] MEDS ORDERED: HYDROmorphone 0.5 MG/0.5 ML SYRINGE IVP STA ×2 (09:10→10:21)
[2018-05-07 12:44] VITALS: BP 149/85; PULSE 82; TEMP 98.2
== END 2018-05-07 12:47 | disposition other institution (70) ==
LOC: EC 06:28
DX: I63.9 Cerebral infarction, unspecified (principal); G43.409 Hemiplegic migraine, not intractable, without status migrainosus; E88.49 Other mitochondrial metabolism disorders; I20.9 Angina pectoris, unspecified; E11.9 Type 2 diabetes mellitus without complications; E07.9 Disorder of thyroid, unspecified; F31.9 Bipolar disorder, unspecified; Z86.718 Personal history of other venous thrombosis and embolism; Z86.14 Personal history of Methicillin resistant Staphylococcus aureus infection; Z79.01 Long term (current) use of anticoagulants; Z79.4 Long term (current) use of insulin; Z79.899 Other long term (current) drug therapy; Z88.1 Allergy status to other antibiotic agents; Z88.2 Allergy status to sulfonamides; Z88.7 Allergy status to serum and vaccine; Z88.8 Allergy status to other drugs, medicaments and biological substances
CPT/HCPCS: 36415; 93005; 80053; 82550; 82553; 84484; 85025; 85610; 85730; 71046; 70496; 70450; 70498; 99291; 96374; 96375 ×3; 96376; 96361 ×2; J1200; J2765; J1885; J1170; Q9967

== ENCOUNTER 2018-05-23 16:20 | Inpatient (IN) | payer MEDICARE, OTHER ==
[2018-05-23 18:09] LABS: Basophils % (A) 0 %; Eosinophils # (A) 0.2 k/uL (0-0.7); Eosinophils % (A) 2 %; HCT 37.9 % (34.0-46.0); HGB 12.6 gm/dL (11.4-16.0); Lymphocytes # (A) 2.3 k/uL (1.0-4.8); Lymphocytes % (A) 21 %; MCH 28.2 pg (25.0-35.0); MCHC 33.3 g/dL (31.0-37.0); MCV 84.6 fL (80.0-100.0); Mean Platelet Volume 6.7; Monocytes # (A) 0.7 k/uL (0-1.0); Monocytes % (A) 6 %; Neutrophils # (A) 7.9 k/uL (1.3-7.7); Neutrophils % (A) 70 %; Platelet Count 356 k/uL (150-450); RBC 4.48 m/uL (3.80-5.40); RDW 14.8 % (11.5-15.5); WBC 11.4 k/uL (3.8-10.6)
[2018-05-23 18:10] LABS: Appearance,Urine Clear (Clear); Bilirubin,Urine Negative (Negative); Blood,Urine Negative (Negative); Color,Urine Colorless; Glucose,Urine (UA) Negative (Negative); Ketones,Urine Negative (Negative); Leukocyte Esterase,Urine Negative (Negative); Nitrite,Urine Negative (Negative); Protein,Urine Negative (Negative); Specific Gravity,Urine 1.003 (1.001-1.035); Urobilinogen,Urine <2.0 mg/dL (<2.0)
[2018-05-23 18:20] LABS: ALT 34 U/L (9-52); AST 23 U/L (14-36); Albumin 4.4 g/dL (3.5-5.0); Alkaline Phosphatase 99 U/L (38-126); Anion Gap 16 mmol/L; Blood Urea Nitrogen 11 mg/dL (7-17); Calcium 9.9 mg/dL (8.4-10.2); Carbon Dioxide 19 mmol/L (22-30); Chloride 107 mmol/L (98-107); Glucose 107 mg/dL (74-99); Sodium 142 mmol/L (137-145); Total Bilirubin 0.2 mg/dL (0.2-1.3); Total Protein 7.1 g/dL (6.3-8.2)
--- NOTE | 2018-05-23 18:28 | ED ---
General Adult HPI - General Stated complaint: dehydration Source: old records reviewed - History of Present Illness Initial comments: Patient 37-year-old female presented to the emergency room today with a chief complaint of urinary tract infection. Patient does admit that she's had a UTI symptoms on and off over the last 4 months. Patient states that she's been treated by infectious disease. She states that she is currently not on any antibiotics at this time. She doesn't that she's felt some increased lower back pain. She states that she was called by the family doctor today for positive urine culture advised come here to the emergency room. Patient admits to dysuria off and on. Patient denies any other complaints or symptoms. Patient denies any recent fever, chills, shortness of breath, chest pain, abdominal pain, nausea or vomiting, numbness or tingling, hematuria, constipation or diarrhea, headaches or visual changes, or any other complaints. - Related Data Home Medications Medication Instructions Recorded Confirmed Cyanocobalamin [Vitamin B-12] 2,000 mcg PO DAILY 01/25/16 05/07/18 Ferrous Sulfate [Iron (65 MG 325 mg PO BID 07/14/16 05/07/18 Elemental)] Rivaroxaban [Xarelto] 20 mg PO HS 03/09/17 05/07/18 tiZANidine [Zanaflex] 8 mg PO HS 03/09/17 05/07/18 Levothyroxine Sodium [Synthroid] 50 mcg PO DAILY 07/29/17 05/07/18 Levothyroxine Sodium [Synthroid] 200 mcg PO DAILY 07/29/17 05/07/18 Metoclopramide [Reglan] 10 mg PO ACHS 07/29/17 05/07/18 Insulin Aspart [NovoLOG Flexpen] See Protocol SQ AC-TID 09/13/17 05/07/18 Topiramate [Topamax] 75 mg PO BID 09/13/17 05/07/18 Trimethobenzamide HCl [Tigan] 300 mg PO TID PRN 09/25/17 05/07/18 Metoprolol Succinate (ER) [Toprol 100 mg PO DAILY 10/24/17 05/07/18 XL] Ranitidine HCl 150 mg PO BID 12/17/17 05/07/18 Insulin Glargine [Lantus] 35 unit SQ HS 03/15/18 05/07/18 Losartan [Cozaar] 50 mg PO DAILY 03/15/18 05/07/18 HYDROmorphone [Dilaudid] 2 mg PO Q4-6H PRN 04/27/18 05/07/18 Meropenem [Merrem] 1 gm IVPB Q8H 04/27/18 05/07/18 Previous Rx's Medication Instructions Recorded Non-Formulary Drug [Non Formulary 1,000 ml IVPB DAILY #30 misc 04/05/18 Drug] Ondansetron [Zofran] 4 mg IVP ONCE PRN vial 04/28/18 Prochlorperazine Suppository 25 mg RECTAL BID #20 supp 05/02/18 [Compazine] Ondansetron Odt [Zofran Odt] 4 mg PO Q8HR PRN #2 tab 05/06/18 Allergies Allergy/AdvReac Type Severity Reaction Status Date / Time barium sulfate Allergy Anaphylaxis Verified 05/06/18 15:20 diphtheria, pertussis, Allergy Unknown Verified 05/06/18 15:20 tetanus vacc doxepin [Doxepin] Allergy Anaphylaxis Verified 05/06/18 15:20 ertapenem [From Invanz] Allergy Rash/Hives Verified 05/06/18 15:20 influenza virus vaccine, Allergy Anaphylaxis Verified 05/06/18 15:20 specific [Influenza Virus Vacc,Specific] promethazine HCl Allergy Anaphylaxis Verified 05/06/18 15:20 [From Phenergan] doxycycline AdvReac Nausea & Verified 05/06/18 15:20 Vomiting & Diarrhea Pertussis Vaccines AdvReac fever/seizu Verified 05/06/18 15:20 re pseudoephedrine AdvReac Chest Pain Verified 05/06/18 15:20 pseudoephedrine HCl AdvReac Chest Pain Verified 05/06/18 15:20 [From Sudafed] sulfamethoxazole AdvReac Nausea & Verified 05/06/18 15:20 [From Bactrim] Vomiting trimethoprim [From Bactrim] AdvReac Nausea & Verified 05/06/18 15:20 Vomiting Review of Systems ROS Statement: Those systems with pertinent positive or pertinent negative responses have been documented in the HPI. ROS Other: All systems not noted in ROS Statement are negative. Past Medical History Past Medical History: Chest Pain / Angina, CVA/TIA, Diabetes Mellitus, Deep Vein Thrombosis (DVT), Neurologic Disorder, Syncope, Thyroid Disorder Additional Past Medical History / Comment(s): Dysautonomia-progressive neurological disorder, lupus/LUPUS ANTICOAGULANTS, 2004 CVA without residual, ana maria's disease, lymphedema Lt arm d/t DVTs , v-tach, pituitary microadenoma. "mitochondrial disease". patent foramen ovale, narcolepsy, gastropareis, IDDM type II, uti's, falls, orthostatic hypotension/syncope, migraines with hemiplegia, pernicious anemia, polycystic ovarian syndrome, neuropathy bilateral legs/fee-mild, uterine ablation August 2015/patient no longer has periods-had uterine ablation uti's., midline access for fluids- current access issues has contacted dr hansen. History of Any Multi-Drug Resistant Organisms: ESBL, MRSA Date of last positivie culture/infection: 03/09/17 MRSA/ 05/17/18 ESBL MDRO Source:: MRSA LEFT ARM,/ESBL URINE ECOLI Past Surgical History: Ablation, Uterine Ablation Additional Past Surgical History / Comment(s): colonscopy/egd, angie, stress test. Past Anesthesia/Blood Transfusion Reactions: No Reported Reaction Additional Past Anesthesia/Blood Transfusion Reaction / Comment(s): patient states "It takes a lot of anesthesia for my body to react". Pt has received blood in past without reaction. Past Psychological History: Bipolar, Depression Smoking Status: Never smoker Past Alcohol Use History: None Reported Past Drug Use History: None Reported - Past Family History Brother(s) Family Medical History: Diabetes Mellitus, Hyperlipidemia, Hypertension Additional Family Medical History / Comment(s): Patient states she has 1 brother with no major medical problems. Father Family Medical History: Diabetes Mellitus, Hyperlipidemia, Hypertension Additional Family Medical History / Comment(s): DAD IS 70 YEARS OLD. Patient states she does not have any contact with her father and does not know his medical history. Mother Family Medical History: Blood Disorder, Chest Pain / Angina, CVA/TIA, Hyperlipidemia, Hypertension Additional Family Medical History / Comment(s): AGE 62 HAS LUPUS, blood pressure swings high to low, antiphospholipid antibody syndrome General Exam - General Exam Comments Initial Comments: General: The patient is awake and alert, in no distress, and does not appear acutely ill. Eye: Pupils are equal, round and reactive to light, extra-ocular movements are intact. No nystagmus. There is normal conjunctiva bilaterally. No signs of icterus. Ears, nose, mouth and throat: There are moist mucous membranes and no oral lesions. Neck: The neck is supple, there is no tenderness or JVD. Cardiovascular: There is a regular rate and rhythm. No murmur, rub or gallop is appreciated. Respiratory: Lungs are clear to auscultation, respirations are non-labored, breath sounds are equal. No wheezes, stridor, rales, or rhonchi. Musculoskeletal: Normal ROM, no tenderness. Strength 5/5. Sensation intact. Pulses equal bilaterally 2+. Neurological: A&O x 3. CN II-XII intact, There are no obvious motor or sensory deficits. Coordination appears grossly intact. Speech is normal. Skin: Skin is warm and dry and no rashes or lesions are noted. Psychiatric: Cooperative, appropriate mood & affect, normal judgment. Medical Decision Making - Medical Decision Making The patient's labs been reviewed. Urinalysis unremarkable.. Patient's urinary culture from 05/17/2018 does show E. coli susceptibility to meropenem recommended by attending physician Dr. Joel who will admit the patient with consult to Dr. Hansen. - Lab Data Result diagrams: 05/23/18 17:55 05/23/18 17:55 Lab Results 05/23/18 05/23/18 05/23/18 Range/Units 17:55 17:55 17:55 WBC 11.4 H (3.8-10.6) k/uL RBC 4.48 (3.80-5.40) m/uL Hgb 12.6 (11.4-16.0) gm/dL Hct 37.9 (34.0-46.0) % MCV 84.6 (80.0-100.0) fL MCH 28.2 (25.0-35.0) pg MCHC 33.3 (31.0-37.0) g/dL RDW 14.8 (11.5-15.5) % Plt Count 356 (150-450) k/uL Neutrophils % 70 % Lymphocytes % 21 % Monocytes % 6 % Eosinophils % 2 % Basophils % 0 % Neutrophils # 7.9 H (1.3-7.7) k/uL Lymphocytes # 2.3 (1.0-4.8) k/uL Monocytes # 0.7 (0-1.0) k/uL Eosinophils # 0.2 (0-0.7) k/uL Basophils # 0.0 (0-0.2) k/uL Sodium 142 (137-145) mmol/L Potassium 4.0 (3.5-5.1) mmol/L Chloride 107 (98-107) mmol/L Carbon Dioxide 19 L (22-30) mmol/L Anion Gap 16 mmol/L BUN 11 (7-17) mg/dL Creatinine 0.50 L (0.52-1.04) mg/dL Est GFR (CKD-EPI)AfAm >90 (>60 ml/min/1.73 sqM) Est GFR (CKD-EPI)NonAf >90 (>60 ml/min/1.73 sqM) Glucose 107 H (74-99) mg/dL Calcium 9.9 (8.4-10.2) mg/dL Total Bilirubin 0.2 (0.2-1.3) mg/dL AST 23 (14-36) U/L ALT 34 (9-52) U/L Alkaline Phosphatase 99 (38-126) U/L Total Protein 7.1 (6.3-8.2) g/dL Albumin 4.4 (3.5-5.0) g/dL Urine Color Colorless Urine Appearance Clear (Clear) Urine pH 6.0 (5.0-8.0) Ur Specific [place] 1.003 (1.001-1.035) Urine Protein Negative (Negative) Urine Glucose (UA) Negative (Negative) Urine Ketones Negative (Negative) Urine Blood Negative (Negative) Urine Nitrite Negative (Negative) Urine Bilirubin Negative (Negative) Urine Urobilinogen <2.0 (<2.0) mg/dL Ur Leukocyte Esterase Negative (Negative) Disposition Clinical Impression: UTI (urinary tract infection), Failure of outpatient treatment Disposition: ADMITTED IP TO THIS HOSP Condition: Stable Is patient prescribed a controlled substance at d/c from ED?: No Referrals: Maryellen Joel MD [Primary Care Provider] - 1-2 days Time of Disposition: 18:27
[2018-05-23] MEDS ORDERED: ACETAMINOPHEN TAB 325 MG TAB PO PRN (18:30)
[2018-05-23] MEDS ORDERED: NALOXONE 0.4 MG/ML 1 ML VIAL IV PRN (18:30)
[2018-05-23] MEDS ORDERED: SODIUM CHLORIDE 0.9% 1,000 ML IV ONE (18:30)
[2018-05-23] MEDS ORDERED: MEROPENEM 1 GM in SODIUM CHLORIDE 0.9% 100 ML IVPB STA (19:28)
[2018-05-23 21:33] LABS: Glucose,Whole Blood 104 mg/dL (75-99)
[2018-05-23] MEDS ORDERED: ONDANSETRON ODT 8 MG TAB.RAPDIS PO PRN (22:09)
[2018-05-23] MEDS ORDERED: TRIMETHOBENZAMIDE 300 MG CAP PO PRN (22:09)
[2018-05-23] MEDS: HYDROcodone/APAP 5-325MG 1 EACH TAB PO PRN (22:26)
[2018-05-23] MEDS: TOPIRAMATE 25 MG TAB PO SCH (23:08)
[2018-05-23] MEDS: SENNOSIDES 8.6 MG TAB PO SCH (23:08)
[2018-05-23] MEDS: tiZANidine 4 MG TAB PO SCH (23:08)
[2018-05-23] MEDS: FAMOTIDINE 20 MG TAB PO SCH (23:08)
[2018-05-24] MEDS: MEROPENEM 1 GM in SODIUM CHLORIDE 0.9% 100 ML IVPB SCH ×4 (00:24→23:22)
[2018-05-24] MEDS: LEVOTHYROXINE 125 MCG TAB PO SCH (06:21)
[2018-05-24 07:27] LABS: Glucose,Whole Blood 111 mg/dL (75-99)
[2018-05-24] MEDS: METOPROLOL SUCCINATE (ER) 100 MG TAB.ER.24H PO SCH (08:07)
[2018-05-24] MEDS: INSULIN ASPART 100 UNIT/ML 1 ML 10 ML VIAL SQ SCH ×4 (08:07→21:37)
[2018-05-24] MEDS: TOPIRAMATE 25 MG TAB PO SCH ×2 (08:07→21:36)
[2018-05-24] MEDS: FAMOTIDINE 20 MG TAB PO SCH ×2 (08:07→21:35)
[2018-05-24] MEDS: LORATADINE 10 MG TAB PO SCH (08:07)
[2018-05-24] MEDS: LOSARTAN 50 MG TAB PO SCH (08:07)
[2018-05-24] MEDS: CYANOCOBALAMIN 500 MCG TAB PO SCH (08:08)
[2018-05-24] MEDS: METOCLOPRAMIDE 10 MG TAB PO SCH ×4 (08:08→21:35)
[2018-05-24] MEDS: RIVAROXABAN 20 MG TAB PO SCH (08:08)
[2018-05-24] MEDS: HYDROcodone/APAP 5-325MG 1 EACH TAB PO PRN (08:16)
[2018-05-24 09:29] LABS: ALT 30 U/L (9-52); AST 26 U/L (14-36); Albumin 3.7 g/dL (3.5-5.0); Alkaline Phosphatase 86 U/L (38-126); Anion Gap 15 mmol/L; Blood Urea Nitrogen 12 mg/dL (7-17); Calcium 9.1 mg/dL (8.4-10.2); Carbon Dioxide 16 mmol/L (22-30); Chloride 110 mmol/L (98-107); Glucose 209 mg/dL (74-99); Potassium 4.2 mmol/L (3.5-5.1); Sodium 141 mmol/L (137-145); Total Bilirubin 0.3 mg/dL (0.2-1.3)
[2018-05-24 09:34] LABS: Basophils % (A) 1 %; Eosinophils # (A) 0.2 k/uL (0-0.7); Eosinophils % (A) 3 %; HCT 37.7 % (34.0-46.0); HGB 11.8 gm/dL (11.4-16.0); Hypochromasia Marked; Lymphocytes # (A) 1.4 k/uL (1.0-4.8); Lymphocytes % (A) 19 %; MCH 28.9 pg (25.0-35.0); MCHC 31.2 g/dL (31.0-37.0); Mean Platelet Volume 7.1; Monocytes # (A) 0.5 k/uL (0-1.0); Monocytes % (A) 7 %; Neutrophils # (A) 4.9 k/uL (1.3-7.7); Neutrophils % (A) 69 %; Platelet Count 281 k/uL (150-450); RBC 4.09 m/uL (3.80-5.40); RDW 14.6 % (11.5-15.5); WBC 7.2 k/uL (3.8-10.6)
[2018-05-24 09:37] LABS: MCV 92.3 fL (80.0-100.0)
--- NOTE | 2018-05-24 12:03 | P.HPIM ---
History of Present Illness H&P Date: 05/24/18 Chief Complaint: Urinary tract infection This is a 37-year-old female patient who presented to the emergency room with a chief complaint of urinary tract infection. Patient has been staying at [facility]. Patient been complaining of urinary frequency and burning. Urine culture completed showing ESBLA through primary care office. Due to patient's complicated medical history of Dysautonomia-progressive neurological disorder and mitochondrial disease and frequent UTIs, Dr. Hansen has been consulted. Patient had recent admission to [facility] for left sided weakness and headache. Patient's workup at [facility] was negative for stroke. Other medical history includes lupus anticoagulant disorder on anticoagulation, type 2 diabetes and history of recurrent UTIs. Meropenem antibiotic has been ordered and Dr. Hansen has been consulted. Review of Systems Please refer to HPI otherwise unremarkable Past Medical History Past Medical History: Chest Pain / Angina, CVA/TIA, Diabetes Mellitus, Deep Vein Thrombosis (DVT), Neurologic Disorder, Syncope, Thyroid Disorder Additional Past Medical History / Comment(s): "STROKE LIKE EPISODE D/T MITOCHRONDIAL DISEASE HAD WORK UP DONE AT [facility]. WEARS A BRACE ON LT ANKLE AND LT WRIST".Dysautonomia-progressive neurological disorder, lupus/LUPUS ANTICOAGULANTS, 2004 CVA without residual, ana maria's disease, lymphedema Lt arm d/t DVTs , v-tach, pituitary microadenoma. "mitochondrial disease". patent foramen ovale, narcolepsy, gastropareis, IDDM type II, uti's, falls, orthostatic hypotension/syncope,migraines with hemiplegia, pernicious anemia, polycystic ovarian syndrome, neuropathy bilateral legs/fee-mild, uterine ablation August 2015/patient no longer has periods-had uterine ablation uti's. , midline access for fluids-current access issues has contacted dr hansen. History of Any Multi-Drug Resistant Organisms: ESBL, MRSA Date of last positivie culture/infection: 03/09/17 MRSA/ 05/17/18 ESBL MDRO Source:: MRSA LEFT ARM,/ESBL URINE ECOLI Past Surgical History: Ablation, Uterine Ablation Additional Past Surgical History / Comment(s): colonscopy/egd, angie, stress test. PORT-A -CATH INSERTION 04-28-18 Past Anesthesia/Blood Transfusion Reactions: No Reported Reaction Additional Past Anesthesia/Blood Transfusion Reaction / Comment(s): patient states "It takes a lot of anesthesia for my body to react". Pt has received blood in past without reaction. Smoking Status: Never smoker - Past Family History Brother(s) Family Medical History: Diabetes Mellitus, Hyperlipidemia, Hypertension Additional Family Medical History / Comment(s): Patient states she has 1 brother with no major medical problems. Father Family Medical History: Diabetes Mellitus, Hyperlipidemia, Hypertension Additional Family Medical History / Comment(s): DAD IS 70 YEARS OLD. Patient states she does not have any contact with her father and does not know his medical history. Mother Family Medical History: Blood Disorder, Chest Pain / Angina, CVA/TIA, Hyperlipidemia, Hypertension Additional Family Medical History / Comment(s): AGE 62 HAS LUPUS, blood pressure swings high to low, antiphospholipid antibody syndrome Medications and Allergies Home Medications Medication Instructions Recorded Confirmed Type Rivaroxaban [Xarelto] 20 mg PO DAILY 03/09/17 05/23/18 History tiZANidine [Zanaflex] 8 mg PO HS 03/09/17 05/23/18 History Metoclopramide [Reglan] 10 mg PO ACHS 07/29/17 05/23/18 History Trimethobenzamide HCl [Tigan] 300 mg PO TID PRN 09/25/17 05/23/18 History Metoprolol Succinate (ER) [Toprol 100 mg PO DAILY 10/24/17 05/23/18 History XL] Ranitidine HCl 150 mg PO BID 12/17/17 05/23/18 History Insulin Glargine [Lantus] 35 unit SQ HS 03/15/18 05/23/18 History Losartan [Cozaar] 50 mg PO DAILY 03/15/18 05/23/18 History Acetaminophen Tab [Tylenol Tab] 650 mg PO Q4H PRN 05/23/18 05/23/18 History Cyanocobalamin (Vitamin B-12) 2,000 mcg PO DAILY 05/23/18 05/23/18 History [Vitamin B-12] Insulin Lispro [humaLOG Kwikpen] See Protocol SQ ACHS 05/23/18 05/23/18 History Levothyroxine Sodium 250 mcg PO DAILY 05/23/18 05/23/18 History Loratadine [Claritin] 10 mg PO DAILY 05/23/18 05/23/18 History Ondansetron [Zofran ODT] 8 mg PO Q8H PRN 05/23/18 05/23/18 History Sennosides [Senna] 8.6 mg PO Q12H 05/23/18 05/23/18 History Topiramate [Topamax] 75 mg PO BID 05/23/18 05/23/18 History Allergies Allergy/AdvReac Type Severity Reaction Status Date / Time barium sulfate Allergy Anaphylaxis Verified 05/23/18 21:13 diphtheria, pertussis, Allergy Unknown Verified 05/23/18 21:13 tetanus vacc doxepin [Doxepin] Allergy Anaphylaxis Verified 05/23/18 21:13 ephedrine Allergy Unknown Verified 05/23/18 21:13 ertapenem [From Invanz] Allergy Rash/Hives Verified 05/23/18 21:13 influenza virus vaccine, Allergy Anaphylaxis Verified 05/23/18 21:13 specific [Influenza Virus Vacc,Specific] peanut [Peanut Butter] Allergy Unknown Verified 05/23/18 21:13 promethazine HCl Allergy Anaphylaxis Verified 05/23/18 21:13 [From Phenergan] doxycycline AdvReac Nausea & Verified 05/23/18 21:13 Vomiting & Diarrhea Pertussis Vaccines AdvReac fever/seizu Verified 05/23/18 21:13 re pseudoephedrine AdvReac Chest Pain Verified 05/23/18 21:13 pseudoephedrine HCl AdvReac Chest Pain Verified 05/23/18 21:13 [From Sudafed] sulfamethoxazole AdvReac Nausea & Verified 05/23/18 21:13 [From Bactrim] Vomiting trimethoprim [From Bactrim] AdvReac Nausea & Verified 05/23/18 21:13 Vomiting Physical Exam Vitals: Vital Signs Temp Pulse Pulse Resp BP BP Pulse Ox 05/24/18 07:00 97.9 F 70 16 121/81 97 05/23/18 23:00 97.4 F L 96 18 110/73 96 05/23/18 20:29 98.7 F 98 14 119/77 97 Intake and Output 05/23/18 05/24/18 05/24/18 22:59 06:59 14:59 Other: Voiding Method Toilet Toilet Bedside Commode Bedside Commode # Voids 1 1 1 Weight 109.769 kg Head normocephalic Neck supple Lungs clear to auscultation bilaterally no wheezing or crackles Heart regular rate and rhythm S1-S2, no rub or gallop Abdomen is soft nontender nondistended positive bowel sounds no hepatosplenomegaly Extremities no edema Neuro alert and orientated to 3 Results CBC & Chem 7: 05/24/18 08:15 05/24/18 08:15 Labs: Abnormal Lab Results - Last 24 Hours (Table) 05/23/18 05/23/18 05/23/18 Range/Units 17:55 17:55 21:06 WBC 11.4 H (3.8-10.6) k/uL Neutrophils # 7.9 H (1.3-7.7) k/uL Chloride (98-107) mmol/L Carbon Dioxide 19 L (22-30) mmol/L Creatinine 0.50 L (0.52-1.04) mg/dL Glucose 107 H (74-99) mg/dL POC Glucose (mg/dL) 104 H (75-99) mg/dL Total Protein (6.3-8.2) g/dL 05/24/18 05/24/18 Range/Units 07:18 08:15 WBC (3.8-10.6) k/uL Neutrophils # (1.3-7.7) k/uL Chloride 110 H (98-107) mmol/L Carbon Dioxide 16 L (22-30) mmol/L Creatinine (0.52-1.04) mg/dL Glucose 209 H (74-99) mg/dL POC Glucose (mg/dL) 111 H (75-99) mg/dL Total Protein 6.0 L (6.3-8.2) g/dL Microbiology - Last 24 Hours (Table) 05/23/18 17:55 Urine Culture - Preliminary Urine,Clean Catch Thrombosis Risk Factor Assmnt - Choose All That Apply Any of the Below Risk Factors Present?: Yes Each Factor Represents 1 point: Obesity (BMI >25) Other Risk Factors: Yes Each Risk Factor Represents 3 Points: History of DVT/PE Other congenital or acquired thrombophilia - If yes, enter type in comment: No Thrombosis Risk Factor Assessment Total Risk Factor Score: 4 Thrombosis Risk Factor Assessment Level: Moderate Risk Assessment and Plan Assessment: 1. Urinary tract infection. Urine culture through PCP positive ESBLA. Dr. Hansen has been consulted. Meropenem antibiotic has been ordered. 446 2)History of Mitochondrial disease 3)History of blood clots, patient is currently managed on xeralto 5)Type 2 Diabetes Mellitus home medications have been reordered. 6)Essential Hypertension- continue on current medications 7)History of bipolar disorder 8)Hypothyroidism- continue synthroid 9)Weakness on Left side- recent admission [facility]. Per [facility] stroke has been ruled out. Physical therapy has been consulted 10)History of systemic lupus erythematosus 11) History of Postural orthostatic tachycardia syndrome 12) History of Migraine- maintain on topamax DVT prophylaxis Xarelto, Time with Patient: Greater than 30 (Greater than 60% of the total time spent in counseling and coordination of care.I performed an examination of the patient and discussed their management with the Nurse Practitioner. I have reviewed the Nurse Practitioner's notes and agree with the documented findings and plan of care)
[2018-05-24 12:08] LABS: Glucose,Whole Blood 176 mg/dL (75-99)
[2018-05-24] MEDS: SENNOSIDES 8.6 MG TAB PO SCH ×2 (12:33→21:36)
[2018-05-24] MEDS: ONDANSETRON 4 MG/2 ML VIAL IVP PRN (13:17)
[2018-05-24] MEDS: MORPHINE SULFATE 2 MG/ML SYRINGE IVP PRN ×2 (14:46→21:38)
[2018-05-24 16:58] LABS: Glucose,Whole Blood 117 mg/dL (75-99)
[2018-05-24 20:51] LABS: Glucose,Whole Blood 178 mg/dL (75-99)
[2018-05-24] MEDS: tiZANidine 4 MG TAB PO SCH (21:36)
[2018-05-24] MEDS: INSULIN DETEMIR 100 UNIT/ML 10 ML VIAL SQ SCH (21:38)
--- NOTE | 2018-05-25 05:49 | CONS ---
CONSULTATION DATE OF SERVICE: 05/24/2018. REASON FOR CONSULTATION: Urinary tract infection. HISTORY OF PRESENT ILLNESS: The patient is a 37-year-old female with past medical history significant for recurrent urinary tract infection. The patient did have multiple urine cultures positive for ESBL E. coli. The patient apparently did have a UA culture done in the outpatient setting which was showing ESBL E. coli. Hence, the patient was advised presentation to the hospital for further management of the same. The patient has been complaining of some urinary frequency, burning and pain in her back area. Pain in back is more of a dull aching pain 3 to 4 out of 10 and no radiation. The patient denies having significant nausea, no vomiting and no diarrhea. On presentation to the ER, the patient has been afebrile. Her white count slightly elevated 11.3, however, the urine has been negative and the blood culture has been negative so far. REVIEW OF SYSTEMS: CONSTITUTIONAL: Positive for weakness, but denies any high-grade fever. EYES: No complaint. ENT: No complaint. RESPIRATORY: No complaint. CARDIOVASCULAR: No complaint. GENITOURINARY: As per HPI. GASTROINTESTINAL: No complaint. MUSCULOSKELETAL: No complaint. INTEGUMENTARY: No complaint. PSYCHOLOGICAL: No complaint. ENDOCRINE: No complaint. NEUROLOGIC: No complaint. PAST MEDICAL HISTORY: Her past medial history is significant for recurrent urinary tract infection and pyelonephritis, CVA, TIA, diabetes mellitus, DVT, syncope, hypothyroidism, dystonia, ESBL UTI and MRSA left arm infection. PAST SURGICAL HISTORY: Uterine ablation, colonoscopy and EGD. SOCIAL HISTORY: Denies smoking, drinking or drug use. FAMILY HISTORY: Mother with history of diabetes, hypertension, hyperlipidemia. history of diabetes and hypertension. ALLERGIES: Allergies to multiple medications including KEFLEX, apparently patient tolerated Rocephin without any problem. MEDICATIONS: Medications currently include the patient is on Tylenol, [place], vitamin B12, Pepcid, NovoLog, Levemir, Synthroid, Claritin, Ativan, Cozaar, meropenem 1 gram q.8, Reglan, Toprol XL, morphine sulfate, Narcan, Zofran, Xarelto, Senokot, Zanaflex, Topamax, and Tigan. PHYSICAL EXAMINATION: On examination, blood pressure is 114/71 with a pulse of 88, temperature 97.7. She is 97% on room air. General description is a middle aged female lying in bed in no distress. No tachypnea or accessory muscle of respiration use. HEENT examination shows no pallor or scleral icterus. Oral mucous membrane is dry. No pharyngeal erythema or thrush. NECK: Trachea central. No thyromegaly. LUNGS: Unlabored breathing, clear to auscultation anteriorly. No wheeze or crackle. HEART: S1, S2. Regular rate and rhythm. ABDOMEN: Soft, no tenderness. No guarding or rigidity. No organomegaly. EXTREMITIES: No edema of the feet. SKIN EXAMINATION: No rash or mass palpable. NEUROLOGICALLY: Patient is awake, alert, oriented x3. Mood and affect normal. LABS: Hemoglobin 11.8, white count 11.3 on admission down to 7.2. BUN of 12, creatinine 0.53. UA has been negative. Blood and urine cultures are currently pending. She did have a urine culture in outpatient setting on 05/17, which has been finalized with ESBL E. coli. DIAGNOSTIC IMPRESSION AND PLAN: Patient admitted to the hospital with urinary symptoms of burning and frequency and some back pain in a patient is currently not running any fever. Did not have elevated white count. The UA on presentation to the hospital at this time has been negative, though the urine culture in outpatient setting was positive for ESBL Escherichia coli with a question of possible contamination of the initial sample versus a mild cystitis in the patient currently with no systemic symptoms. PLAN: 1. We will recommend a short 3 to 5 day course of IV meropenem that can be discontinued if these urine cultures obtained this admission has been negative. 2. The patient has been educated about her condition and how to prevent recurrent urinary tract infection. 3. We will follow up on clinical condition and further adjust her medication if needed. Thank you for this consultation. Will follow this patient along with you. MMODL / IJN: [id number] /
[2018-05-25] MEDS: LEVOTHYROXINE 125 MCG TAB PO SCH (06:30)
[2018-05-25 07:12] LABS: Glucose,Whole Blood 106 mg/dL (75-99)
[2018-05-25] MEDS: INSULIN ASPART 100 UNIT/ML 1 ML 10 ML VIAL SQ SCH ×4 (07:48→20:55)
[2018-05-25 07:49] LABS: ALT 32 U/L (9-52); AST 18 U/L (14-36); Albumin 3.5 g/dL (3.5-5.0); Alkaline Phosphatase 73 U/L (38-126); Anion Gap 11 mmol/L; Blood Urea Nitrogen 7 mg/dL (7-17); Carbon Dioxide 22 mmol/L (22-30); Chloride 110 mmol/L (98-107); Glucose 114 mg/dL (74-99); Potassium 3.8 mmol/L (3.5-5.1); Sodium 143 mmol/L (137-145); Total Bilirubin 0.2 mg/dL (0.2-1.3); Total Protein 5.8 g/dL (6.3-8.2)
[2018-05-25] MEDS: MEROPENEM 1 GM in SODIUM CHLORIDE 0.9% 100 ML IVPB SCH ×3 (09:32→23:44)
[2018-05-25] MEDS: LOSARTAN 50 MG TAB PO SCH (09:33)
[2018-05-25] MEDS: TOPIRAMATE 25 MG TAB PO SCH ×2 (09:33→20:54)
[2018-05-25] MEDS: FAMOTIDINE 20 MG TAB PO SCH ×2 (09:33→20:53)
[2018-05-25] MEDS: METOPROLOL SUCCINATE (ER) 100 MG TAB.ER.24H PO SCH (09:33)
[2018-05-25] MEDS: LORATADINE 10 MG TAB PO SCH (09:34)
[2018-05-25] MEDS: CYANOCOBALAMIN 500 MCG TAB PO SCH (09:34)
[2018-05-25] MEDS: RIVAROXABAN 20 MG TAB PO SCH (09:34)
[2018-05-25] MEDS: HYDROcodone/APAP 5-325MG 1 EACH TAB PO PRN ×2 (09:34→16:11)
[2018-05-25] MEDS: METOCLOPRAMIDE 10 MG TAB PO SCH ×4 (09:34→20:54)
[2018-05-25] MEDS: SENNOSIDES 8.6 MG TAB PO SCH ×2 (09:38→20:55)
[2018-05-25 10:39] LABS: Hemoglobin A1C 6.7 % (4.0-6.0)
--- NOTE | 2018-05-25 10:39 | P.PN ---
Subjective Progress Note Date: 05/25/18 This is a 37-year-old female patient who presented to the emergency room with a chief complaint of urinary tract infection. Patient has been staying at [facility]. Patient been complaining of urinary frequency and burning. Urine culture completed showing ESBL through primary care office. Due to patient's complicated medical history of Dysautonomia-progressive neurological disorder and mitochondrial disease and frequent UTIs, Dr. Hansen has been consulted. Patient had recent admission to [facility] for left sided weakness and headache. Patient's workup at [facility] was negative for stroke. Other medical history includes lupus anticoagulant disorder on anticoagulation, type 2 diabetes and history of recurrent UTIs. Meropenem antibiotic has been ordered and Dr. Hansen has been consulted. On 05/25/2018 patient resting comfortably in bed. States pain from headache and urinary systems have improved. Dr. Fullered covering for infectious disease. Recommendation for a short 3-5 day course of IV meropenem that can be discontinued if the urine culture obtained this admission is negative. Patient denies chest pain or shortness of breath at this time. Objective - Vital Signs Vital signs: Vital Signs Temp 97.3 F L 05/25/18 06:00 Pulse 67 05/25/18 06:00 Resp 20 05/25/18 06:00 BP 96/51 05/25/18 06:00 Pulse Ox 97 05/25/18 06:00 Intake & Output 05/24/18 05/25/18 05/25/18 18:59 06:59 18:59 Intake Total 200 500 Balance 200 500 Intake: Oral 200 500 Other: Voiding Method Toilet Bedside Commode Bedside Commode # Voids 1 2 - Exam Head normocephalic Neck supple Lungs clear to auscultation bilaterally no wheezing or crackles Heart regular rate and rhythm S1-S2, no rub or gallop Abdomen is soft nontender nondistended positive bowel sounds no hepatosplenomegaly Extremities no edema. 3/5 left sided weakness. Neuro alert and orientated to 3 - Labs CBC & Chem 7: 05/24/18 08:15 05/25/18 07:04 Labs: Abnormal Lab Results - Last 24 Hours (Table) 05/24/18 05/24/18 05/24/18 Range/Units 11:57 16:42 20:46 Chloride (98-107) mmol/L Glucose (74-99) mg/dL POC Glucose (mg/dL) 176 H 117 H 178 H (75-99) mg/dL Total Protein (6.3-8.2) g/dL 05/25/18 05/25/18 Range/Units 06:56 07:04 Chloride 110 H (98-107) mmol/L Glucose 114 H (74-99) mg/dL POC Glucose (mg/dL) 106 H (75-99) mg/dL Total Protein 5.8 L (6.3-8.2) g/dL Microbiology - Last 24 Hours (Table) 05/23/18 17:55 Urine Culture - Final Urine,Clean Catch 05/23/18 17:55 Blood Culture - Preliminary Blood No Growth after 24 hours Assessment and Plan Assessment: 1. Urinary tract infection. Urine culture through PCP positive ESBL. Dr. Hansen has been consulted. Meropenem antibiotic has been ordered. If his [place] covering for infectious disease. Recommendation for short 3-5 day course of IV meropenem that can be discontinued if these urine cultures obtained this admission are negative per Dr. Llanes. 2)History of Mitochondrial disease 3)History of blood clots, patient is currently managed on xeralto 5)Type 2 Diabetes Mellitus home medications have been reordered. 6)Essential Hypertension- continue on current medications 7)History of bipolar disorder 8)Hypothyroidism- continue synthroid 9)Weakness on Left side- recent admission [facility]. Per [facility] stroke has been ruled out. Physical therapy has been consulted 10)History of systemic lupus erythematosus 11) History of Postural orthostatic tachycardia syndrome 12) History of Migraine- maintain on topamax DVT prophylaxis Xarelto, I performed an examination of the patient and discussed their management with the Nurse Practitioner. I have reviewed the Nurse Practitioner's notes and agree with the documented findings and plan of care
[2018-05-25 11:44] LABS: Glucose,Whole Blood 113 mg/dL (75-99)
[2018-05-25 11:48] LABS: Basophils % (A) 0 %; Eosinophils # (A) 0.2 k/uL (0-0.7); Eosinophils % (A) 3 %; HCT 36.2 % (34.0-46.0); HGB 11.5 gm/dL (11.4-16.0); Lymphocytes # (A) 1.2 k/uL (1.0-4.8); Lymphocytes % (A) 20 %; MCH 27.7 pg (25.0-35.0); MCHC 31.8 g/dL (31.0-37.0); Mean Platelet Volume 8.3; Monocytes # (A) 0.6 k/uL (0-1.0); Monocytes % (A) 9 %; Neutrophils # (A) 4.3 k/uL (1.3-7.7); Neutrophils % (A) 67 %; Platelet Count 270 k/uL (150-450); RBC 4.15 m/uL (3.80-5.40); RDW 14.6 % (11.5-15.5); WBC 6.4 k/uL (3.8-10.6)
[2018-05-25 11:49] LABS: MCV 87.2 fL (80.0-100.0)
[2018-05-25] MEDS: ONDANSETRON 4 MG/2 ML VIAL IVP PRN (14:54)
[2018-05-25 16:52] LABS: Glucose,Whole Blood 131 mg/dL (75-99)
[2018-05-25 20:41] LABS: Glucose,Whole Blood 124 mg/dL (75-99)
[2018-05-25] MEDS: INSULIN DETEMIR 100 UNIT/ML 10 ML VIAL SQ SCH (20:53)
[2018-05-25] MEDS: tiZANidine 4 MG TAB PO SCH (20:54)
[2018-05-25] MEDS: MORPHINE SULFATE 2 MG/ML SYRINGE IVP PRN (22:13)
--- NOTE | 2018-05-26 05:53 | PN ---
PROGRESS NOTE DATE OF SERVICE: 05/25/2018 REASON FOR FOLLOWUP: Urinary tract infection. INTERVAL HISTORY: The patient is afebrile. She is breathing comfortably. Denies any significant chest pain, cough. Her has improved as well as the low back pain. PHYSICAL EXAMINATION: On examination, blood pressure 101/55 with a pulse of 69, temperature 98.7. She is 97% on room air. General description is a middle-aged female lying in bed in no distress. RESPIRATORY SYSTEM: Unlabored breathing, clear to auscultation anteriorly. HEART: S1, S2. Regular rate and rhythm. ABDOMEN: Soft, no tenderness. LABS: Hemoglobin 11.5, white count 6.4 with a BUN of 7, creatinine 0.55. Blood and urine culture has been coming back negative. DIAGNOSTIC IMPRESSION AND PLAN: Patient being admitted to the hospital with a positive outpatient culture with ESBL Escherichia coli. However, the UA as well as the culture has been coming back negative here and possible mild cystitis. Should be treated with days of meropenem, which patient has received. If the cultures remain to be negative by tomorrow, recommend discontinuation of meropenem and no antibiotic on discharge. Continue supportive care. MMODL / IJN: [id number] /
[2018-05-26] MEDS: LEVOTHYROXINE 125 MCG TAB PO SCH (06:37)
[2018-05-26 07:17] LABS: Glucose,Whole Blood 103 mg/dL (75-99)
[2018-05-26 08:13] LABS: Basophils % (A) 1 %; Eosinophils # (A) 0.2 k/uL (0-0.7); Eosinophils % (A) 3 %; HCT 33.9 % (34.0-46.0); HGB 11.3 gm/dL (11.4-16.0); Lymphocytes # (A) 1.5 k/uL (1.0-4.8); Lymphocytes % (A) 22 %; MCH 28.5 pg (25.0-35.0); MCHC 33.2 g/dL (31.0-37.0); MCV 85.9 fL (80.0-100.0); Mean Platelet Volume 6.7; Monocytes # (A) 0.5 k/uL (0-1.0); Monocytes % (A) 7 %; Neutrophils # (A) 4.5 k/uL (1.3-7.7); Neutrophils % (A) 66 %; Platelet Count 269 k/uL (150-450); RBC 3.95 m/uL (3.80-5.40); RDW 14.5 % (11.5-15.5); WBC 6.8 k/uL (3.8-10.6)
[2018-05-26 08:28] LABS: Anion Gap 10 mmol/L; Blood Urea Nitrogen 10 mg/dL (7-17); Calcium 9.2 mg/dL (8.4-10.2); Carbon Dioxide 22 mmol/L (22-30); Chloride 109 mmol/L (98-107); Glucose 102 mg/dL (74-99); Potassium 4.1 mmol/L (3.5-5.1); Sodium 141 mmol/L (137-145)
[2018-05-26] MEDS: INSULIN ASPART 100 UNIT/ML 1 ML 10 ML VIAL SQ SCH ×4 (08:36→21:29)
[2018-05-26] MEDS: TOPIRAMATE 25 MG TAB PO SCH ×2 (08:37→21:30)
[2018-05-26] MEDS: SENNOSIDES 8.6 MG TAB PO SCH ×2 (08:37→21:30)
[2018-05-26] MEDS: METOCLOPRAMIDE 10 MG TAB PO SCH ×4 (08:37→21:29)
[2018-05-26] MEDS: MEROPENEM 1 GM in SODIUM CHLORIDE 0.9% 100 ML IVPB SCH ×2 (08:37→16:31)
[2018-05-26] MEDS: CYANOCOBALAMIN 500 MCG TAB PO SCH (08:37)
[2018-05-26] MEDS: LOSARTAN 50 MG TAB PO SCH (08:38)
[2018-05-26] MEDS: FAMOTIDINE 20 MG TAB PO SCH ×2 (08:38→21:29)
[2018-05-26] MEDS: RIVAROXABAN 20 MG TAB PO SCH (08:38)
[2018-05-26] MEDS: METOPROLOL SUCCINATE (ER) 100 MG TAB.ER.24H PO SCH (08:38)
[2018-05-26] MEDS: LORATADINE 10 MG TAB PO SCH (08:42)
[2018-05-26] MEDS: ONDANSETRON 4 MG/2 ML VIAL IVP PRN (10:27)
[2018-05-26] MEDS: HYDROcodone/APAP 5-325MG 1 EACH TAB PO PRN (10:27)
--- NOTE | 2018-05-26 10:59 | P.PN ---
Subjective Progress Note Date: 05/26/18 This is a 37-year-old female patient who presented to the emergency room with a chief complaint of urinary tract infection. Patient has been staying at [facility]. Patient been complaining of urinary frequency and burning. Urine culture completed showing ESBL through primary care office. Due to patient's complicated medical history of Dysautonomia-progressive neurological disorder and mitochondrial disease and frequent UTIs, Dr. Hansen has been consulted. Patient had recent admission to [facility] for left sided weakness and headache. Patient's workup at [facility] was negative for stroke. Other medical history includes lupus anticoagulant disorder on anticoagulation, type 2 diabetes and history of recurrent UTIs. Meropenem antibiotic has been ordered and Dr. Hansen has been consulted. On 05/25/2018 patient resting comfortably in bed. States pain from headache and urinary systems have improved. Dr. Llanes covering for infectious disease. Recommendation for a short 3-5 day course of IV meropenem that can be discontinued if the urine culture obtained this admission is negative. Patient denies chest pain or shortness of breath at this time. On 05/26/2018 patient resting comfortably in bed. Does state that she still is having headaches. Patient denies chest pain or shortness of breath at this time. Patient does state her urinary symptoms have improved. Patient denies nausea vomiting or diarrhea. Objective - Vital Signs Vital signs: Vital Signs Temp 96.8 F L 05/26/18 06:02 Pulse 70 05/26/18 06:02 Resp 17 05/26/18 06:02 BP 130/85 05/26/18 06:02 Pulse Ox 96 05/26/18 06:02 Intake & Output 05/25/18 05/26/18 05/26/18 18:59 06:59 18:59 Other: Voiding Method Bedside Commode # Voids 1 2 # Bowel Movements 0 - Exam Head normocephalic Neck supple Lungs clear to auscultation bilaterally no wheezing or crackles Heart regular rate and rhythm S1-S2, no rub or gallop Abdomen is soft nontender nondistended positive bowel sounds no hepatosplenomegaly Extremities no edema. 3/5 left sided weakness. Neuro alert and orientated to 3 - Labs CBC & Chem 7: 05/26/18 07:30 05/26/18 07:30 Labs: Abnormal Lab Results - Last 24 Hours (Table) 05/23/18 05/25/18 05/25/18 Range/Units 17:55 11:41 16:40 Hgb (11.4-16.0) gm/dL Hct (34.0-46.0) % Chloride (98-107) mmol/L Creatinine (0.52-1.04) mg/dL Glucose (74-99) mg/dL POC Glucose (mg/dL) 113 H 131 H (75-99) mg/dL Hemoglobin A1c 6.7 H (4.0-6.0) % 05/25/18 05/26/18 05/26/18 Range/Units 20:40 07:12 07:30 Hgb (11.4-16.0) gm/dL Hct (34.0-46.0) % Chloride 109 H (98-107) mmol/L Creatinine 0.50 L (0.52-1.04) mg/dL Glucose 102 H (74-99) mg/dL POC Glucose (mg/dL) 124 H 103 H (75-99) mg/dL Hemoglobin A1c (4.0-6.0) % 05/26/18 Range/Units 07:30 Hgb 11.3 L (11.4-16.0) gm/dL Hct 33.9 L (34.0-46.0) % Chloride (98-107) mmol/L Creatinine (0.52-1.04) mg/dL Glucose (74-99) mg/dL POC Glucose (mg/dL) (75-99) mg/dL Hemoglobin A1c (4.0-6.0) % Microbiology - Last 24 Hours (Table) 05/23/18 17:55 Blood Culture - Preliminary Blood No Growth after 48 hours Assessment and Plan Assessment: 1. Urinary tract infection. Urine culture through PCP positive ESBL. Dr. Hansen has been consulted. Meropenem antibiotic has been ordered. If his [place] covering for infectious disease. Recommendation for short 3-5 day course of IV meropenem that can be discontinued if these urine cultures obtained this admission are negative per Dr. Llanes. 2)History of Mitochondrial disease 3)History of blood clots, patient is currently managed on xeralto 5)Type 2 Diabetes Mellitus home medications have been reordered. 6)Essential Hypertension- continue on current medications 7)History of bipolar disorder 8)Hypothyroidism- continue synthroid 9)Weakness on Left side- recent admission [facility]. Per [facility] stroke has been ruled out. Physical therapy has been consulted 10)History of systemic lupus erythematosus 11) History of Postural orthostatic tachycardia syndrome 12) History of Migraine- maintain on topamax DVT prophylaxis Xarelto, I performed an examination of the patient and discussed their management with the Nurse Practitioner. I have reviewed the Nurse Practitioner's notes and agree with the documented findings and plan of care
[2018-05-26 11:45] LABS: Glucose,Whole Blood 129 mg/dL (75-99)
[2018-05-26] MEDS: MORPHINE SULFATE 2 MG/ML SYRINGE IVP PRN ×2 (14:38→21:41)
[2018-05-26 17:02] LABS: Glucose,Whole Blood 99 mg/dL (75-99)
--- NOTE | 2018-05-26 20:54 | CT ---
EXAMINATION TYPE: CT angio head neck DATE OF EXAM: 05/26/2018 HISTORY: intractable EARLY. COMPARISON: CT DLP: 338.9 mGycm. Automated Exposure Control for Dose Reduction was Utilized. TECHNIQUE: CTA scan of the neck is performed with IV Contrast, patient injected with 65 mL of Isovue 370, axial images are obtained, coronal and sagittal reformatted images are reviewed. Three-D recons tructed images are created on an independent workstation and reviewed. FINDINGS: There is normal branching pattern of the great vessels on the aortic arch. I see no stenosis of the g reat vessels. There is bilateral arterial flow in the vertebral arteries. Right vertebral artery is l arger than the left. The basilar artery fills mostly from the right vertebral artery. There is arterial flow in the common internal and external carotid arteries. There is no evidence of carotid or vertebral artery dissection. The carotid bifurcations are widely patent. There is arterial flow in the anterior middle and posterior cerebral arteries. I see no evidence of a neurysm or neovascularity. There is no mass effect. There is arterial flow in the vertebrobasilar art neeta system. There is normal contrast density in the venous sinuses. The left anterior cerebral artery appears to fill mostly through the anterior communicating artery. This is probably developmental kurt iation. IMPRESSION: Negative CT angiogram of the head and neck.
--- NOTE | 2018-05-26 20:56 | CT ---
EXAMINATION TYPE: CT brain wo con DATE OF EXAM: 05/26/2018 COMPARISON: 05/07/2018 HISTORY: intractable EARLY. CT DLP: 815.4 mGycm. Automated Exposure Control for Dose Reduction was Utilized. TECHNIQUE: CT scan of the head is performed without contrast. FINDINGS: Ventricles and sulci appear normal. There is no mass effect nor midline shift. There is no sign of intracranial hemorrhage. The calvarium is intact. IMPRESSION: Negative CT scan of the brain.
--- NOTE | 2018-05-26 21:05 | PN ---
PROGRESS NOTE DATE OF SERVICE: 05/26/2018 REASON FOR FOLLOWUP: Urinary tract infection. INTERVAL HISTORY: The patient is afebrile. She has been breathing comfortably. Denies significant chest pain. No cough. No abdominal pain. has improved and no diarrhea. PHYSICAL EXAMINATION: Blood pressure 123/81 with a pulse of 80, temperature 98.1. She is 97% on room air. General description is a middle-aged female lying in bed in no distress. RESPIRATORY SYSTEM: Unlabored breathing. Clear to auscultation anteriorly. HEART: S1, S2. Regular rate and rhythm. ABDOMEN: Soft. No tenderness. LABS: White count normal at 6.8. Blood and urine cultures have been negative. DIAGNOSTIC IMPRESSION AND PLAN: Patient admitted to hospital with urinary symptoms in a patient who did have an outpatient urine culture positive for ESBL E coli and has currently been treated with Meropenem. However, the culture done here are so far negative. We are planning on discontinuation of Meropenem on discharge. Continue with supportive care. MMODL / IJN: [id number] /
[2018-05-26 21:10] LABS: Glucose,Whole Blood 120 mg/dL (75-99)
[2018-05-26] MEDS: tiZANidine 4 MG TAB PO SCH (21:29)
[2018-05-26] MEDS: INSULIN DETEMIR 100 UNIT/ML 10 ML VIAL SQ SCH (21:29)
[2018-05-27] MEDS: MEROPENEM 1 GM in SODIUM CHLORIDE 0.9% 100 ML IVPB SCH ×4 (00:53→23:17)
[2018-05-27] MEDS: LEVOTHYROXINE 125 MCG TAB PO SCH (06:30)
[2018-05-27 07:40] LABS: Glucose,Whole Blood 117 mg/dL (75-99)
[2018-05-27] MEDS: INSULIN ASPART 100 UNIT/ML 1 ML 10 ML VIAL SQ SCH ×4 (08:39→21:37)
[2018-05-27] MEDS: METOCLOPRAMIDE 10 MG TAB PO SCH ×4 (08:40→21:36)
[2018-05-27] MEDS: RIVAROXABAN 20 MG TAB PO SCH (08:41)
[2018-05-27] MEDS: LOSARTAN 50 MG TAB PO SCH (08:42)
[2018-05-27] MEDS: TOPIRAMATE 25 MG TAB PO SCH ×2 (08:42→21:37)
[2018-05-27] MEDS: LORATADINE 10 MG TAB PO SCH (08:42)
[2018-05-27] MEDS: METOPROLOL SUCCINATE (ER) 100 MG TAB.ER.24H PO SCH (08:43)
[2018-05-27] MEDS: FAMOTIDINE 20 MG TAB PO SCH ×2 (08:43→21:36)
[2018-05-27] MEDS: CYANOCOBALAMIN 500 MCG TAB PO SCH (08:43)
[2018-05-27] MEDS: SENNOSIDES 8.6 MG TAB PO SCH ×2 (08:44→21:37)
[2018-05-27] MEDS: MORPHINE SULFATE 2 MG/ML SYRINGE IVP PRN ×3 (09:04→21:40)
[2018-05-27 09:21] LABS: Anion Gap 14 mmol/L; Blood Urea Nitrogen 11 mg/dL (7-17); Calcium 9.5 mg/dL (8.4-10.2); Carbon Dioxide 22 mmol/L (22-30); Chloride 107 mmol/L (98-107); Glucose 146 mg/dL (74-99); Potassium 3.9 mmol/L (3.5-5.1); Sodium 143 mmol/L (137-145)
[2018-05-27 09:55] LABS: Basophils % (A) 0 %; Eosinophils # (A) 0.2 k/uL (0-0.7); Eosinophils % (A) 2 %; HCT 36.9 % (34.0-46.0); HGB 12.7 gm/dL (11.4-16.0); Lymphocytes # (A) 1.2 k/uL (1.0-4.8); Lymphocytes % (A) 15 %; MCH 29.8 pg (25.0-35.0); MCHC 34.5 g/dL (31.0-37.0); MCV 86.5 fL (80.0-100.0); Mean Platelet Volume 7.4; Monocytes # (A) 0.5 k/uL (0-1.0); Monocytes % (A) 6 %; Neutrophils # (A) 6.2 k/uL (1.3-7.7); Neutrophils % (A) 75 %; Platelet Count 301 k/uL (150-450); RBC 4.26 m/uL (3.80-5.40); RDW 14.6 % (11.5-15.5); WBC 8.2 k/uL (3.8-10.6)
[2018-05-27 11:42] LABS: Glucose,Whole Blood 107 mg/dL (75-99)
--- NOTE | 2018-05-27 12:05 | P.CONS ---
History of Present Illness - Reason for Consult Consult date: 05/27/18 Headache - Chief Complaint Headache - History of Present Illness Is a pleasant 37-year-old occasion female being evaluated by the neurology service for intractable headache. She has a long history of frequent headaches and chronic migraine headaches. She has been experiencing what she considers her classical migraine since May 24. She was residing at [facility] temporarily while she underwent therapy for some left-sided weakness. She went to [facility] and stroke was ruled out. They do not believe this was from hemiplegic migraine according to the patient but rather, an exacerbation of her underlying mitochondrial disease. She had a previous admission here at [facility] in December. She had similar symptoms. CT and CTA of the head and neck were essentially normal. MRI and MRA of the brain were both normal at that time. She underwent a CT of the head and CTA of the head and neck yesterday. They were both normal. At my first attempt of examination she was in the shower and when showering without assistance. She says her left- sided weakness was getting much better at [facility]. She had been having some problems with chronic urinary tract infection and is being followed by infectious disease at this time. Her urine cultures were clear, and I believe the ordered. Meropenem has been given. She is afebrile in no acute distress. Review of Systems All systems: negative Constitutional: Reports as per HPI Past Medical History Past Medical History: Chest Pain / Angina, CVA/TIA, Diabetes Mellitus, Deep Vein Thrombosis (DVT), Neurologic Disorder, Syncope, Thyroid Disorder Additional Past Medical History / Comment(s): "STROKE LIKE EPISODE D/T MITOCHRONDIAL DISEASE HAD WORK UP DONE AT [facility]. WEARS A BRACE ON LT ANKLE AND LT WRIST".Dysautonomia-progressive neurological disorder, lupus/LUPUS ANTICOAGULANTS, 2004 CVA without residual, ana maria's disease, lymphedema Lt arm d/t DVTs , v-tach, pituitary microadenoma. "mitochondrial disease". patent foramen ovale, narcolepsy, gastropareis, IDDM type II, uti's, falls, orthostatic hypotension/syncope,migraines with hemiplegia, pernicious anemia, polycystic ovarian syndrome, neuropathy bilateral legs/fee-mild, uterine ablation August 2015/patient no longer has periods-had uterine ablation uti's. , midline access for fluids-current access issues has contacted dr quigley. History of Any Multi-Drug Resistant Organisms: ESBL, MRSA Year Discovered:: 03/09/17 MRSA/ 05/17/18 ESBL MDRO Source:: MRSA LEFT ARM,/ESBL URINE ECOLI Past Surgical History: Ablation, Uterine Ablation Additional Past Surgical History / Comment(s): colonscopy/egd, angie, stress test. PORT-A -CATH INSERTION 04-28-18 Past Anesthesia/Blood Transfusion Reactions: No Reported Reaction Additional Past Anesthesia/Blood Transfusion Reaction / Comm: patient states " It takes a lot of anesthesia for my body to react". Pt has received blood in past without reaction. Smoking Status: Never smoker - Past Family History Brother(s) Family Medical History: Diabetes Mellitus, Hyperlipidemia, Hypertension Additional Family Medical History / Comment(s): Patient states she has 1 brother with no major medical problems. Father Family Medical History: Diabetes Mellitus, Hyperlipidemia, Hypertension Additional Family Medical History / Comment(s): DAD IS 70 YEARS OLD. Patient states she does not have any contact with her father and does not know his medical history. Mother Family Medical History: Blood Disorder, Chest Pain / Angina, CVA/TIA, Hyperlipidemia, Hypertension Additional Family Medical History / Comment(s): AGE 62 HAS LUPUS, blood pressure swings high to low, antiphospholipid antibody syndrome Medications and Allergies Home Medications Medication Instructions Recorded Confirmed Type Rivaroxaban [Xarelto] 20 mg PO DAILY 03/09/17 05/23/18 History tiZANidine [Zanaflex] 8 mg PO HS 03/09/17 05/23/18 History Metoclopramide [Reglan] 10 mg PO ACHS 07/29/17 05/23/18 History Trimethobenzamide HCl [Tigan] 300 mg PO TID PRN 09/25/17 05/23/18 History Metoprolol Succinate (ER) [Toprol 100 mg PO DAILY 10/24/17 05/23/18 History XL] Ranitidine HCl 150 mg PO BID 12/17/17 05/23/18 History Insulin Glargine [Lantus] 35 unit SQ HS 03/15/18 05/23/18 History Losartan [Cozaar] 50 mg PO DAILY 03/15/18 05/23/18 History Acetaminophen Tab [Tylenol Tab] 650 mg PO Q4H PRN 05/23/18 05/23/18 History Cyanocobalamin (Vitamin B-12) 2,000 mcg PO DAILY 05/23/18 05/23/18 History [Vitamin B-12] Insulin Lispro [humaLOG Kwikpen] See Protocol SQ ACHS 05/23/18 05/23/18 History Levothyroxine Sodium 250 mcg PO DAILY 05/23/18 05/23/18 History Loratadine [Claritin] 10 mg PO DAILY 05/23/18 05/23/18 History Ondansetron [Zofran ODT] 8 mg PO Q8H PRN 05/23/18 05/23/18 History Sennosides [Senna] 8.6 mg PO Q12H 05/23/18 05/23/18 History Topiramate [Topamax] 75 mg PO BID 05/23/18 05/23/18 History Allergies Allergy/AdvReac Type Severity Reaction Status Date / Time barium sulfate Allergy Anaphylaxis Verified 05/23/18 21:13 diphtheria, pertussis, Allergy Unknown Verified 05/23/18 21:13 tetanus vacc doxepin [Doxepin] Allergy Anaphylaxis Verified 05/23/18 21:13 ephedrine Allergy Unknown Verified 05/23/18 21:13 ertapenem [From Invanz] Allergy Rash/Hives Verified 05/23/18 21:13 influenza virus vaccine, Allergy Anaphylaxis Verified 05/23/18 21:13 specific [Influenza Virus Vacc,Specific] promethazine HCl Allergy Anaphylaxis Verified 05/23/18 21:13 [From Phenergan] doxycycline AdvReac Nausea & Verified 05/23/18 21:13 Vomiting & Diarrhea Pertussis Vaccines AdvReac fever/seizu Verified 05/23/18 21:13 re pseudoephedrine AdvReac Chest Pain Verified 05/23/18 21:13 pseudoephedrine HCl AdvReac Chest Pain Verified 05/23/18 21:13 [From Sudafed] sulfamethoxazole AdvReac Nausea & Verified 05/23/18 21:13 [From Bactrim] Vomiting trimethoprim [From Bactrim] AdvReac Nausea & Verified 05/23/18 21:13 Vomiting Physical Exam Vitals: Vital Signs Temp Pulse Resp BP Pulse Ox 05/27/18 07:25 98.3 F 93 16 130/90 97 05/26/18 23:00 98.4 F 74 18 113/63 96 05/26/18 14:57 98.1 F 80 18 123/81 97 Intake and Output 05/26/18 05/27/18 05/27/18 22:59 06:59 14:59 Other: # Voids 1 1 - Constitutional General appearance: cooperative, mild distress, no no acute distress, obese - EENT Eyes: no abnormal pupil, EOMI, PERRLA, no ptosis ENT: hearing grossly normal - Neck Neck: normal ROM, no rigidity - Respiratory Respiratory: negative: prolonged expiration, prolonged inspiration - Cardiovascular Rhythm: regular - Gastrointestinal General gastrointestinal: no distended, no tenderness - Neurologic The patient is alert awake and oriented 3. Speech and language are normal. There is no facial asymmetry. Strength is 4+ out of 5 in the left upper and lower extremities, and full on the right. There is no sensory deficit. No tremors or seizures are seen. Cranial nerves II through XII are intact globally. She has bilateral occipital nerve tenderness. Results CBC & Chem 7: 05/27/18 09:40 05/27/18 08:50 Labs: Abnormal Lab Results - Last 24 Hours (Table) 05/26/18 05/27/18 05/27/18 Range/Units 20:58 07:33 08:50 Glucose 146 H (74-99) mg/dL POC Glucose (mg/dL) 120 H 117 H (75-99) mg/dL 05/27/18 Range/Units 11:39 Glucose (74-99) mg/dL POC Glucose (mg/dL) 107 H (75-99) mg/dL Microbiology - Last 24 Hours (Table) 05/23/18 17:55 Blood Culture - Preliminary Blood No Growth after 72 hours Assessment and Plan (1) Status migrainosus without intractable migraine Current Visit: Yes Status: Acute Code(s): G43.901 - MIGRAINE, UNSP, NOT INTRACTABLE, WITH STATUS MIGRAINOSUS SNOMED Code(s): 035366729 (2) Hemiparesis Current Visit: No Status: Acute Code(s): G81.90 - HEMIPLEGIA, UNSPECIFIED AFFECTING UNSPECIFIED SIDE SNOMED Code(s): 82911092 (3) Nausea Current Visit: No Status: Chronic Code(s): R11.0 - NAUSEA SNOMED Code(s): 873965037 (4) Weakness Current Visit: No Status: Chronic Code(s): R53.1 - WEAKNESS SNOMED Code(s) : 32131037 (5) Mitochondrial DNA depletion syndrome Current Visit: No Status: Chronic Code(s): E88.49 - OTHER MITOCHONDRIAL METABOLISM DISORDERS SNOMED Code(s): 686123843 Plan: We were consulted on this young lady to assess her headaches. She does have a long history of chronic daily headaches compounded by frequent migraine exacerbations. She's had a migraine for greater than 72 hours and clinically is in status migrainosus. Anesthesiology has been consult also. She would benefit from bilateral greater occipital nerve blocks eventually. However, she would have to hold her anticoagulants. She is currently being treated for what seems a persistent/serious urinary tract infection. If this is felt to be cleared and it is felt that she could tolerate IV steroids, her migraine could be treated with IV Solu-Medrol 250 mg every 8 hours preferably over the course of about 3 days. We also usually give this with 1 g of magnesium IV. This could be given at [facility] if needed. Other than the left sided weakness stated above that has already been worked up, she has no new focal neurological deficits. Continue physical therapy. No further neurological workup is needed. I have performed a history and physical on the above patient. I have reviewed the above note, and agree.
[2018-05-27] MEDS: ONDANSETRON 4 MG/2 ML VIAL IVP PRN (15:17)
--- NOTE | 2018-05-27 17:06 | P.PN ---
Subjective Progress Note Date: 05/27/18 This is a 37-year-old female patient who presented to the emergency room with a chief complaint of urinary tract infection. Patient has been staying at [facility]. Patient been complaining of urinary frequency and burning. Urine culture completed showing ESBL through primary care office. Due to patient's complicated medical history of Dysautonomia-progressive neurological disorder and mitochondrial disease and frequent UTIs, Dr. Hansen has been consulted. Patient had recent admission to [facility] for left sided weakness and headache. Patient's workup at [facility] was negative for stroke. Other medical history includes lupus anticoagulant disorder on anticoagulation, type 2 diabetes and history of recurrent UTIs. Meropenem antibiotic has been ordered and Dr. Hansen has been consulted. On 05/25/2018 patient resting comfortably in bed. States pain from headache and urinary systems have improved. Dr. Fullered covering for infectious disease. Recommendation for a short 3-5 day course of IV meropenem that can be discontinued if the urine culture obtained this admission is negative. Patient denies chest pain or shortness of breath at this time. On 05/26/2018 patient resting comfortably in bed. Does state that she still is having headaches. Patient denies chest pain or shortness of breath at this time. Patient does state her urinary symptoms have improved. Patient denies nausea vomiting or diarrhea. On 05/27/2018 patient still complaining of severe headache denies any complaints otherwise this time Objective - Vital Signs Vital signs: Vital Signs Temp 98.9 F 05/27/18 15:45 Pulse 75 05/27/18 15:45 Resp 16 05/27/18 15:45 BP 107/66 05/27/18 15:45 Pulse Ox 96 05/27/18 15:45 Intake & Output 05/26/18 05/27/18 05/27/18 18:59 06:59 18:59 Intake Total 1200 Balance 1200 Intake: Oral 1200 Other: Voiding Method Bedside Commode # Voids 2 1 3 - Exam Head normocephalic and atraumatic Neck supple no JVD no goiter Lungs clear to auscultation bilaterally no wheezing or crackles Heart regular rate and rhythm S1-S2, no rub or gallop Abdomen is soft nontender nondistended positive bowel sounds no hepatosplenomegaly Extremities no edema. 3/5 left sided weakness. Neuro alert and orientated to 3 - Labs CBC & Chem 7: 05/27/18 09:40 05/27/18 08:50 Labs: Abnormal Lab Results - Last 24 Hours (Table) 05/26/18 05/27/18 05/27/18 Range/Units 20:58 07:33 08:50 Glucose 146 H (74-99) mg/dL POC Glucose (mg/dL) 120 H 117 H (75-99) mg/dL 05/27/18 Range/Units 11:39 Glucose (74-99) mg/dL POC Glucose (mg/dL) 107 H (75-99) mg/dL Microbiology - Last 24 Hours (Table) 05/23/18 17:55 Blood Culture - Preliminary Blood No Growth after 72 hours Assessment and Plan Plan: 1. Urinary tract infection. Urine culture through PCP positive ESBL. Dr. Hansen has been consulted. Meropenem antibiotic has been ordered. If his [place] covering for infectious disease. Recommendation for short 3-5 day course of IV meropenem that can be discontinued if these urine cultures obtained this admission are negative per Dr. Llanes. 2)History of Mitochondrial DNA depletion disease 3)History of blood clots, patient is currently managed on xeralto 5)Type 2 Diabetes Mellitus home medications have been reordered. 6)Essential Hypertension- continue on current medications 7)History of bipolar disorder 8)Hypothyroidism- continue synthroid 9)Weakness on Left side- recent admission [facility]. Per [facility] stroke has been ruled out. Physical therapy has been consulted 10)History of systemic lupus erythematosus 11) History of Postural orthostatic tachycardia syndrome 12) History of Migraine- maintain on topamax, patient is having severe headache recommendation per neurology is to try IV Solu-Medrol 250 mg every 8 hours and magnesium 1 g daily will initiate therapy.
[2018-05-27 17:54] LABS: Glucose,Whole Blood 136 mg/dL (75-99)
[2018-05-27] MEDS ORDERED: MAGNESIUM SULFATE-D5W PMX 1 GM in DEXTROSE/WATER 1 100ML.BAG IVPB ONE (18:00)
[2018-05-27 20:58] LABS: Glucose,Whole Blood 190 mg/dL (75-99)
[2018-05-27] MEDS: tiZANidine 4 MG TAB PO SCH (21:36)
[2018-05-27] MEDS: INSULIN DETEMIR 100 UNIT/ML 10 ML VIAL SQ SCH (21:37)
--- NOTE | 2018-05-27 23:34 | PN ---
PROGRESS NOTE DATE OF SERVICE: 05/27/2018. REASON FOR FOLLOWUP: Urinary tract infection. INTERVAL HISTORY: The patient is afebrile. She has been breathing comfortably. Her urinary symptoms have improved. No significant abdominal pain or any diarrhea. Has been dealing mostly with a headache and is being managed by Neurology. EXAMINATION: Blood pressure 107/66, pulse of 55, temperature 98.9. She is 96% on room air. General description is a middle-aged female, lying in bed in no distress. RESPIRATORY SYSTEM: Unlabored breathing. Clear to auscultation anteriorly. HEART: S1, S2. Regular rate and rhythm. ABDOMEN: Soft. No tenderness. LABS: Hemoglobin is 12.7, white count 8.2 with a BUN of 11, creatinine 0.55. DIAGNOSTIC IMPRESSION AND PLAN: Patient with outpatient culture positive for extended-spectrum beta lactamase Escherichia coli. The patient admitted to the hospital with urinary symptoms. Symptoms have improved and the culture has been negative. Would recommend discontinuation of the antibiotic on discharge. Continue supportive care. MMODL / IJN: [id number] /
[2018-05-28] MEDS: LORazepam 2 MG/ML INJ IV PRN (01:51)
[2018-05-28] MEDS: HYDROcodone/APAP 5-325MG 1 EACH TAB PO PRN ×2 (04:57→21:34)
[2018-05-28] MEDS: ONDANSETRON 4 MG/2 ML VIAL IVP PRN (04:57)
[2018-05-28] MEDS: LEVOTHYROXINE 125 MCG TAB PO SCH (06:21)
[2018-05-28 07:25] LABS: Glucose,Whole Blood 277 mg/dL (75-99)
[2018-05-28] MEDS: METOCLOPRAMIDE 10 MG TAB PO SCH ×4 (08:01→21:15)
[2018-05-28] MEDS: CYANOCOBALAMIN 500 MCG TAB PO SCH (08:01)
[2018-05-28] MEDS: LORATADINE 10 MG TAB PO SCH (08:01)
[2018-05-28] MEDS: METOPROLOL SUCCINATE (ER) 100 MG TAB.ER.24H PO SCH (08:01)
[2018-05-28] MEDS: MEROPENEM 1 GM in SODIUM CHLORIDE 0.9% 100 ML IVPB SCH ×3 (08:01→23:49)
[2018-05-28] MEDS: FAMOTIDINE 20 MG TAB PO SCH ×2 (08:02→21:15)
[2018-05-28] MEDS: LOSARTAN 50 MG TAB PO SCH (08:02)
[2018-05-28 08:19] LABS: Basophils % (A) 0 %; Eosinophils % (A) 0 %; HGB 12.4 gm/dL (11.4-16.0); Lymphocytes # (A) 0.7 k/uL (1.0-4.8); Lymphocytes % (A) 5 %; MCH 28.2 pg (25.0-35.0); MCHC 32.7 g/dL (31.0-37.0); MCV 86.2 fL (80.0-100.0); Mean Platelet Volume 6.8; Monocytes # (A) 0.2 k/uL (0-1.0); Monocytes % (A) 2 %; Neutrophils % (A) 92 %; Platelet Count 315 k/uL (150-450); RBC 4.41 m/uL (3.80-5.40); RDW 14.5 % (11.5-15.5)
[2018-05-28] MEDS: INSULIN ASPART 100 UNIT/ML 1 ML 10 ML VIAL SQ SCH ×4 (08:20→21:15)
[2018-05-28] MEDS: SENNOSIDES 8.6 MG TAB PO SCH ×2 (10:26→21:15)
[2018-05-28] MEDS: RIVAROXABAN 20 MG TAB PO SCH (10:26)
[2018-05-28] MEDS: TOPIRAMATE 25 MG TAB PO SCH ×2 (10:26→21:15)
[2018-05-28 11:57] LABS: Glucose,Whole Blood 266 mg/dL (75-99)
--- NOTE | 2018-05-28 13:27 | P.PN ---
Subjective Progress Note Date: 05/28/18 Principal diagnosis: Headache This pleasant 37-year-old female continuing to be evaluated by the neurology service. She is now receiving IV Solu-Medrol for status migrainosus. She says this has helped quite a bit she's feeling better from a headache standpoint. She has developed no new neurological symptoms in the last 24 hours. At the time of my exam she has ambulated to the restroom. She is in no acute distress. Objective - Vital Signs Vital signs: Vital Signs Temp 98.4 F 05/28/18 05:54 Pulse 88 05/28/18 05:54 Resp 14 05/28/18 05:54 BP 115/67 05/28/18 05:54 Pulse Ox 94 L 05/28/18 05:54 Intake & Output 05/27/18 05/28/18 05/28/18 18:59 06:59 18:59 Intake Total 1200 2120 600 Balance 1200 2120 600 Weight 109.769 kg Intake: IV 600 0.9 NS @50 600 Intake, IV Titration 300 Amount Meropenem 1 gm In Sodium 200 Chloride 0.9% 100 ml @ 200 mls/hr IVPB Q8HR JOSE Rx#:[id number] methylPREDNISolone SOD 100 SUCC 250 mg In Sodium Chloride 0.9% 100 ml @ 100 mls/hr IVPB Q8H JOSE Rx#:[id number] Oral 1200 1220 600 Other: Voiding Method Bedside Commode # Voids 3 1 6 # Bowel Movements 1 - Constitutional General appearance: Present: no acute distress, obese - EENT Eyes: Present: EOMI, PERRLA. Absent: abnormal pupil, ptosis ENT: Present: hearing grossly normal - Neck Neck: Present: normal ROM - Respiratory Respiratory: negative: prolonged expiration, prolonged inspiration - Gastrointestinal General gastrointestinal: Absent: distended - Neurologic Neurologic Comment(s): She is alert awake and oriented 3. Speech-language are normal. There is no facial asymmetry. No tremors or seizure-like activities are seen. Cranial nerves II through XII intact globally. - Labs CBC & Chem 7: 05/28/18 08:10 05/27/18 08:50 Labs: Abnormal Lab Results - Last 24 Hours (Table) 05/27/18 05/27/18 05/28/18 Range/Units 17:32 20:56 07:22 WBC (3.8-10.6) k/uL Neutrophils # (1.3-7.7) k/uL Lymphocytes # (1.0-4.8) k/uL POC Glucose (mg/dL) 136 H 190 H 277 H (75-99) mg/dL 05/28/18 05/28/18 Range/Units 08:10 11:41 WBC 13.0 H (3.8-10.6) k/uL Neutrophils # 12.0 H (1.3-7.7) k/uL Lymphocytes # 0.7 L (1.0-4.8) k/uL POC Glucose (mg/dL) 266 H (75-99) mg/dL Microbiology - Last 24 Hours (Table) 05/23/18 17:55 Blood Culture - Preliminary Blood No Growth after 96 hours Assessment and Plan (1) Status migrainosus without intractable migraine Current Visit: Yes Status: Acute Code(s): G43.901 - MIGRAINE, UNSP, NOT INTRACTABLE, WITH STATUS MIGRAINOSUS SNOMED Code(s): 151114323 (2) Hemiparesis Current Visit: No Status: Acute Code(s): G81.90 - HEMIPLEGIA, UNSPECIFIED AFFECTING UNSPECIFIED SIDE SNOMED Code(s): 14823720 (3) Nausea Current Visit: No Status: Chronic Code(s): R11.0 - NAUSEA SNOMED Code(s): 527614404 (4) Weakness Current Visit: No Status: Chronic Code(s): R53.1 - WEAKNESS SNOMED Code(s) : 97938560 (5) Mitochondrial DNA depletion syndrome Current Visit: No Status: Chronic Code(s): E88.49 - OTHER MITOCHONDRIAL METABOLISM DISORDERS SNOMED Code(s): 281400794 Plan: We were consulted on this young lady to assess her headaches. She does have a long history of chronic daily headaches compounded by frequent migraine exacerbations. She's had a migraine for greater than 72 hours and clinically is in status migrainosus. She would benefit from bilateral greater occipital nerve blocks eventually. However, she would have to hold her anticoagulants. She is currently being treated for what seems a persistent/serious urinary tract infection. She is improving on IV Solu-Medrol 250 mg every 8 hours preferably over the course of about 3 days. He is also receiving 1 g of magnesium IV. Other than the left sided weakness stated above that has already been worked up, she has no new focal neurological deficits. Continue physical therapy. No further neurological workup is needed. I have performed a history and physical on the above patient. I have reviewed the above note, and agree.
[2018-05-28] MEDS: MORPHINE SULFATE 2 MG/ML SYRINGE IVP PRN (13:42)
--- NOTE | 2018-05-28 15:15 | P.PN ---
Subjective Progress Note Date: 05/28/18 This is a 37-year-old female patient who presented to the emergency room with a chief complaint of urinary tract infection. Patient has been staying at [facility]. Patient been complaining of urinary frequency and burning. Urine culture completed showing ESBL through primary care office. Due to patient's complicated medical history of Dysautonomia-progressive neurological disorder and mitochondrial disease and frequent UTIs, Dr. Hansen has been consulted. Patient had recent admission to [facility] for left sided weakness and headache. Patient's workup at [facility] was negative for stroke. Other medical history includes lupus anticoagulant disorder on anticoagulation, type 2 diabetes and history of recurrent UTIs. Meropenem antibiotic has been ordered and Dr. Hansen has been consulted. On 05/25/2018 patient resting comfortably in bed. States pain from headache and urinary systems have improved. Dr. Llanes covering for infectious disease. Recommendation for a short 3-5 day course of IV meropenem that can be discontinued if the urine culture obtained this admission is negative. Patient denies chest pain or shortness of breath at this time. On 05/26/2018 patient resting comfortably in bed. Does state that she still is having headaches. Patient denies chest pain or shortness of breath at this time. Patient does state her urinary symptoms have improved. Patient denies nausea vomiting or diarrhea. On 05/27/2018 patient still complaining of severe headache denies any complaints otherwise this time. On 05/28/2018 patient is alert and oriented 3 in no apparent distress she states that her headache has improved since yesterday, she is complaining of yeast infection under her armpit, she is complaining of difficulty sleeping due to the use of steroids, otherwise she denies any complaints, there is no chest pain or shortness of breath no cough no fever or chills no nausea or vomiting no abdominal pain and no urinary symptoms Objective - Vital Signs Vital signs: Vital Signs Temp 98.4 F 05/28/18 05:54 Pulse 88 05/28/18 05:54 Resp 14 05/28/18 05:54 BP 115/67 05/28/18 05:54 Pulse Ox 94 L 05/28/18 05:54 Intake & Output 05/27/18 05/28/18 05/28/18 18:59 06:59 18:59 Intake Total 1200 2120 600 Balance 1200 2120 600 Weight 109.769 kg Intake: IV 600 0.9 NS @50 600 Intake, IV Titration 300 Amount Meropenem 1 gm In Sodium 200 Chloride 0.9% 100 ml @ 200 mls/hr IVPB Q8HR JOSE Rx#:[id number] methylPREDNISolone SOD 100 SUCC 250 mg In Sodium Chloride 0.9% 100 ml @ 100 mls/hr IVPB Q8H JOSE Rx#:[id number] Oral 1200 1220 600 Other: Voiding Method Bedside Commode # Voids 3 1 6 # Bowel Movements 1 - Exam Head normocephalic and atraumatic Neck supple no JVD no goiter Lungs clear to auscultation bilaterally no wheezing or crackles Heart regular rate and rhythm S1-S2, no rub or gallop Abdomen is soft nontender nondistended positive bowel sounds no hepatosplenomegaly Extremities no edema. 3/5 left sided weakness. Neuro alert and orientated to 3 - Labs CBC & Chem 7: 05/28/18 08:10 05/27/18 08:50 Labs: Abnormal Lab Results - Last 24 Hours (Table) 05/27/18 05/27/18 05/28/18 Range/Units 17:32 20:56 07:22 WBC (3.8-10.6) k/uL Neutrophils # (1.3-7.7) k/uL Lymphocytes # (1.0-4.8) k/uL POC Glucose (mg/dL) 136 H 190 H 277 H (75-99) mg/dL 05/28/18 05/28/18 Range/Units 08:10 11:41 WBC 13.0 H (3.8-10.6) k/uL Neutrophils # 12.0 H (1.3-7.7) k/uL Lymphocytes # 0.7 L (1.0-4.8) k/uL POC Glucose (mg/dL) 266 H (75-99) mg/dL Microbiology - Last 24 Hours (Table) 05/23/18 17:55 Blood Culture - Preliminary Blood No Growth after 96 hours Assessment and Plan Plan: 1. Urinary tract infection. Urine culture through PCP positive ESBL. Dr. Hansen has been consulted. Meropenem antibiotic has been ordered. If his [place] covering for infectious disease. Recommendation for short 3-5 day course of IV meropenem that can be discontinued if these urine cultures obtained this admission are negative per Dr. Llanes. 2)History of Mitochondrial DNA depletion disease 3)History of blood clots, patient is currently managed on xeralto 5)Type 2 Diabetes Mellitus home medications have been reordered. 6)Essential Hypertension- continue on current medications 7)History of bipolar disorder 8)Hypothyroidism- continue synthroid 9)Weakness on Left side- recent admission [facility]. Per [facility] stroke has been ruled out. Physical therapy has been consulted 10)History of systemic lupus erythematosus 11) History of Postural orthostatic tachycardia syndrome 12) History of Migraine- maintain on topamax, patient is having severe headache recommendation per neurology is to try IV Solu-Medrol 250 mg every 8 hours and magnesium 1 g daily will initiate therapy. This was started yesterday patient is reporting some improvement in her headache
[2018-05-28 17:17] LABS: Glucose,Whole Blood 366 mg/dL (75-99)
[2018-05-28 20:42] LABS: Glucose,Whole Blood 348 mg/dL (75-99)
[2018-05-28] MEDS: INSULIN DETEMIR 100 UNIT/ML 10 ML VIAL SQ SCH (21:15)
[2018-05-28] MEDS: tiZANidine 4 MG TAB PO SCH (21:15)
[2018-05-28] MEDS: NYSTATIN 100,000UNIT/GM CREAM 30 GM TUBE TOPICAL SCH (21:15)
[2018-05-28] MEDS: ZOLPIDEM 5 MG TAB PO PRN (21:26)
--- NOTE | 2018-05-28 22:32 | PN ---
PROGRESS NOTE DATE OF SERVICE: 05/28/2018. REASON FOR FOLLOWUP: ESBL E coli UTI. INTERVAL HISTORY: The patient is afebrile, has been breathing comfortably. Seems to be improving with the treatment the patient has received. Denies any chest pain. No abdominal pain. Back pain as well as urinary symptom have resolved. EXAMINATION: Blood pressure 126/81 with a pulse of 106, temperature 97.1, she is 96% on room. GENERAL DESCRIPTION: A middle-aged female lying in bed in no distress. RESPIRATORY SYSTEM: Unlabored breathing, clear to auscultation anteriorly. HEART: Heart S1, S2. Regular rate and rhythm. LABS: White count 13,000. DIAGNOSTIC IMPRESSION AND PLAN: Patient with outpatient urine culture positive for ESBL E coli. Was admitted to the hospital with urinary symptoms, however, the urine culture has been negative on this admission with possible mild cystitis. Meropenem can be discontinued. Continue supportive care. MMODL / IJN: [id number] /
[2018-05-29] MEDS: LEVOTHYROXINE 125 MCG TAB PO SCH (06:32)
[2018-05-29 07:27] LABS: Glucose,Whole Blood 283 mg/dL (75-99)
[2018-05-29 07:42] LABS: Basophils % (A) 0 %; Eosinophils % (A) 0 %; HCT 36.5 % (34.0-46.0); HGB 12.3 gm/dL (11.4-16.0); Lymphocytes # (A) 0.9 k/uL (1.0-4.8); Lymphocytes % (A) 6 %; MCH 28.8 pg (25.0-35.0); MCHC 33.8 g/dL (31.0-37.0); MCV 85.2 fL (80.0-100.0); Mean Platelet Volume 7.3; Monocytes # (A) 0.4 k/uL (0-1.0); Monocytes % (A) 3 %; Neutrophils # (A) 12.9 k/uL (1.3-7.7); Neutrophils % (A) 91 %; Platelet Count 328 k/uL (150-450); RBC 4.29 m/uL (3.80-5.40); RDW 14.3 % (11.5-15.5); WBC 14.2 k/uL (3.8-10.6)
[2018-05-29] MEDS: FAMOTIDINE 20 MG TAB PO SCH ×2 (08:23→20:36)
[2018-05-29] MEDS: METOCLOPRAMIDE 10 MG TAB PO SCH ×4 (08:23→20:36)
[2018-05-29] MEDS: RIVAROXABAN 20 MG TAB PO SCH (08:23)
[2018-05-29] MEDS: LORATADINE 10 MG TAB PO SCH (08:24)
[2018-05-29] MEDS: LOSARTAN 50 MG TAB PO SCH (08:24)
[2018-05-29] MEDS: CYANOCOBALAMIN 500 MCG TAB PO SCH (08:24)
[2018-05-29] MEDS: SENNOSIDES 8.6 MG TAB PO SCH ×2 (08:24→20:36)
[2018-05-29] MEDS: METOPROLOL SUCCINATE (ER) 100 MG TAB.ER.24H PO SCH (08:24)
[2018-05-29] MEDS: TOPIRAMATE 25 MG TAB PO SCH ×2 (08:24→20:36)
[2018-05-29] MEDS: NYSTATIN 100,000UNIT/GM CREAM 30 GM TUBE TOPICAL SCH ×2 (08:27→20:38)
[2018-05-29] MEDS: HYDROcodone/APAP 5-325MG 1 EACH TAB PO PRN (08:32)
[2018-05-29] MEDS: INSULIN ASPART 100 UNIT/ML 1 ML 10 ML VIAL SQ SCH ×4 (08:33→20:37)
[2018-05-29] MEDS: MEROPENEM 1 GM in SODIUM CHLORIDE 0.9% 100 ML IVPB SCH (08:33)
--- NOTE | 2018-05-29 10:44 | P.PN ---
Subjective Progress Note Date: 05/29/18 This is a 37-year-old female patient who presented to the emergency room with a chief complaint of urinary tract infection. Patient has been staying at [facility]. Patient been complaining of urinary frequency and burning. Urine culture completed showing ESBL through primary care office. Due to patient's complicated medical history of Dysautonomia-progressive neurological disorder and mitochondrial disease and frequent UTIs, Dr. Hansen has been consulted. Patient had recent admission to [facility] for left sided weakness and headache. Patient's workup at [facility] was negative for stroke. Other medical history includes lupus anticoagulant disorder on anticoagulation, type 2 diabetes and history of recurrent UTIs. Meropenem antibiotic has been ordered and Dr. Hansen has been consulted. On 05/25/2018 patient resting comfortably in bed. States pain from headache and urinary systems have improved. Dr. Llanes covering for infectious disease. Recommendation for a short 3-5 day course of IV meropenem that can be discontinued if the urine culture obtained this admission is negative. Patient denies chest pain or shortness of breath at this time. On 05/26/2018 patient resting comfortably in bed. Does state that she still is having headaches. Patient denies chest pain or shortness of breath at this time. Patient does state her urinary symptoms have improved. Patient denies nausea vomiting or diarrhea. On 05/27/2018 patient still complaining of severe headache denies any complaints otherwise this time. On 05/28/2018 patient is alert and oriented 3 in no apparent distress she states that her headache has improved since yesterday, she is complaining of yeast infection under her armpit, she is complaining of difficulty sleeping due to the use of steroids, otherwise she denies any complaints, there is no chest pain or shortness of breath no cough no fever or chills no nausea or vomiting no abdominal pain and no urinary symptoms On 05/29/2018 patient is alert and oriented 3 in no apparent distress. Patient states that headaches have improved since starting the IV Solu-Medrol per neurology. Patient states she is no longer having urinary symptoms of burning and urgency. Patient denies chest pain or shortness of breath Objective - Vital Signs Vital signs: Vital Signs Temp 98.3 F 05/29/18 06:04 Pulse 87 05/29/18 06:04 Resp 18 05/29/18 06:04 BP 125/78 07/09/18 06:04 Pulse Ox 98 05/29/18 06:04 Intake & Output 05/28/18 05/29/18 05/29/18 18:59 06:59 18:59 Intake Total 1800 Balance 1800 Intake: Oral 1800 Other: # Voids 1 1 1 # Bowel Movements 1 - Exam Head normocephalic Neck supple Lungs clear to auscultation bilaterally no wheezing or crackles Heart regular rate and rhythm S1-S2, no rub or gallop Abdomen is soft nontender nondistended positive bowel sounds no hepatosplenomegaly Extremities no edema. 3/5 left sided weakness. Neuro alert and orientated to 3 - Labs CBC & Chem 7: 05/29/18 07:20 05/27/18 08:50 Labs: Abnormal Lab Results - Last 24 Hours (Table) 05/28/18 05/28/18 05/28/18 Range/Units 11:41 17:12 20:41 WBC (3.8-10.6) k/uL Neutrophils # (1.3-7.7) k/uL Lymphocytes # (1.0-4.8) k/uL POC Glucose (mg/dL) 266 H 366 H 348 H (75-99) mg/dL 05/29/18 05/29/18 Range/Units 07:20 07:23 WBC 14.2 H (3.8-10.6) k/uL Neutrophils # 12.9 H (1.3-7.7) k/uL Lymphocytes # 0.9 L (1.0-4.8) k/uL POC Glucose (mg/dL) 283 H (75-99) mg/dL Microbiology - Last 24 Hours (Table) 05/23/18 17:55 Blood Culture - Preliminary Blood No Growth after 120 hours Assessment and Plan Assessment: 1. Urinary tract infection. Urine culture through PCP positive ESBL. Dr. Hansen has been consulted. Meropenem antibiotic has been ordered. If his [place] covering for infectious disease. Recommendation for short 3-5 day course of IV meropenem that can be discontinued if these urine cultures obtained this admission are negative per Dr. Llanes. 2)History of Mitochondrial DNA depletion disease 3)History of blood clots, patient is currently managed on xeralto 5)Type 2 Diabetes Mellitus home medications have been reordered. 6)Essential Hypertension- continue on current medications 7)History of bipolar disorder 8)Hypothyroidism- continue synthroid 9)Weakness on Left side- recent admission [facility]. Per [facility] stroke has been ruled out. Physical therapy has been consulted 10)History of systemic lupus erythematosus 11) History of Postural orthostatic tachycardia syndrome 12) History of Migraine- maintain on topamax, patient is having severe headache recommendation per neurology is to try IV Solu-Medrol 250 mg every 8 hours and magnesium 1 g daily will initiate therapy. Recommendation for 3 days of therapy with IV Solu-Medrol. Per neurology patient would benefit from a bilateral greater occipital nerve blocks eventually but would require having her anticoagulants on hold.
[2018-05-29 11:04] LABS: Anion Gap 14 mmol/L; Blood Urea Nitrogen 15 mg/dL (7-17); Calcium 9.8 mg/dL (8.4-10.2); Carbon Dioxide 21 mmol/L (22-30); Chloride 108 mmol/L (98-107); Glucose 318 mg/dL (74-99); Potassium 3.7 mmol/L (3.5-5.1); Sodium 143 mmol/L (137-145)
[2018-05-29 11:29] LABS: Glucose,Whole Blood 293 mg/dL (75-99)
[2018-05-29] MEDS ORDERED: MORPHINE SULFATE 2 MG/ML SYRINGE IVP PRN (11:54)
[2018-05-29] MEDS: traMADol 50 MG TAB PO SCH ×3 (13:02→20:36)
[2018-05-29 14:21] VITALS: RESP 16
[2018-05-29 16:49] LABS: Glucose,Whole Blood 336 mg/dL (75-99)
[2018-05-29 20:27] LABS: Glucose,Whole Blood 333 mg/dL (75-99)
[2018-05-29] MEDS: tiZANidine 4 MG TAB PO SCH (20:36)
[2018-05-29] MEDS: INSULIN DETEMIR 100 UNIT/ML 10 ML VIAL SQ SCH (20:37)
[2018-05-29] MEDS: BUTALB/APAP/CAFF 50-325-40MG TAB PO PRN (20:44)
[2018-05-29] MEDS: ZOLPIDEM 5 MG TAB PO PRN (20:44)
--- NOTE | 2018-05-29 20:47 | P.PN ---
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 She also has a history of hemiplegic migraines. Patient had a recent admission on February 02 which time she was treated for E. coli ESBL UTI with ertapenem. She was discharged home on a 14 day course in the midline in the right arm. She completed her course of antibiotics and the midline was removed. She had [facility] care and Aj infusion in place. Patient was readmitted and discharged on March 18. At that time her urine culture showed skin and genital radha and she was not discharged on antibiotics. Directly thereafter she again developed sniffy urinary symptoms with a temperature 101 she developed right flank pain. ESBL E. coli was found in the urine and she was again treated with a course of antibiotic therapy. She then had improvement but again was hospitalized this time was having some significant neurological abnormalities constantly was transferred to [facility] she has had care in the past due to her significant mitochondrial syndrome. Workup ensued and it was thought that she had had a neurological event resulting in the significant dystonia left lower extremity for which she required a new brace and was transferred to a rehab facility after her stay in a forward to improve her strength and improve her independence. She also is having some dystonia left arm and wears a brace at night. Since her admission she is now showing some improvement. She's not having any fevers or chills. She has responded well to antibiotic therapy and it is noted that the urine culture at this time is negative. There is [facility]. She had developed severe headache migraine-like in nature and is not responding to some high-dose steroid thought to be at least a component of occipital neuralgia Objective - Vital Signs Vital signs: Vital Signs Temp 98.2 F 05/29/18 13:40 Pulse 90 05/29/18 13:40 Resp 16 05/29/18 13:40 BP 129/74 05/29/18 13:40 Pulse Ox 96 05/29/18 13:40 Intake & Output 05/29/18 05/29/18 05/30/18 06:59 18:59 06:59 Intake Total 1440 Balance 1440 Intake: Oral 1440 Other: # Voids 1 1 - Exam Gen: This is a 37-year-old female patient. She is sitting up in bed and appears to be very comfortable and in no acute distress. HEENT: Head is atraumatic, normocephalic. Pupils equal, round. Sclerae is anicteric. Oral mucous membranes are slightly dry. NECK: Supple. No JVD. No lymphadenopathy. No thyromegaly. LUNGS: Clear to auscultation. No wheezes or rhonchi. No intercostal retractions. HEART: Regular rate and rhythm. No murmur. ABDOMEN: Soft. Bowel sounds are present. No masses. Tenderness to the right lower quadrant as well as CVA tenderness on the right and mild on left. EXTREMITIES: No pedal edema. No calf tenderness. Dorsalis pedis +2 bilaterally. The right anterior chest wall does show evidence of the [id number]-Assb was recently placed due to her significant difficulties with IV access and has not tenderness erythema or difficulties. NEUROLOGICAL: Patient is awake, alert and oriented x3 Skin no rashes No vesicles, no pustules, no skin sloughing, - Labs CBC & Chem 7: 05/29/18 07:20 05/29/18 10:40 Labs: Abnormal Lab Results - Last 24 Hours (Table) 05/28/18 05/29/18 05/29/18 Range/Units 20:41 07:20 07:23 WBC 14.2 H (3.8-10.6) k/uL Neutrophils # 12.9 H (1.3-7.7) k/uL Lymphocytes # 0.9 L (1.0-4.8) k/uL Chloride (98-107) mmol/L Carbon Dioxide (22-30) mmol/L Creatinine (0.52-1.04) mg/dL Glucose (74-99) mg/dL POC Glucose (mg/dL) 348 H 283 H (75-99) mg/dL 05/29/18 05/29/18 05/29/18 Range/Units 10:40 11:26 16:46 WBC (3.8-10.6) k/uL Neutrophils # (1.3-7.7) k/uL Lymphocytes # (1.0-4.8) k/uL Chloride 108 H (98-107) mmol/L Carbon Dioxide 21 L (22-30) mmol/L Creatinine 0.40 L (0.52-1.04) mg/dL Glucose 318 H (74-99) mg/dL POC Glucose (mg/dL) 293 H 336 H (75-99) mg/dL 05/29/18 Range/Units 20:25 WBC (3.8-10.6) k/uL Neutrophils # (1.3-7.7) k/uL Lymphocytes # (1.0-4.8) k/uL Chloride (98-107) mmol/L Carbon Dioxide (22-30) mmol/L Creatinine (0.52-1.04) mg/dL Glucose (74-99) mg/dL POC Glucose (mg/dL) 333 H (75-99) mg/dL Microbiology - Last 24 Hours (Table) 05/23/18 17:55 Blood Culture - Final Blood No Growth after 144 hours Laboratory Results WBC 14.2 k/uL (3.8-10.6) H 05/29/18 07:20 RBC 4.29 m/uL (3.80-5.40) 05/29/18 07:20 Hgb 12.3 gm/dL (11.4-16.0) 05/29/18 07:20 Hct 36.5 % (34.0-46.0) 05/29/18 07:20 MCV 85.2 fL (80.0-100.0) 05/29/18 07:20 MCH 28.8 pg (25.0-35.0) 05/29/18 07:20 MCHC 33.8 g/dL (31.0-37.0) 05/29/18 07:20 RDW 14.3 % (11.5-15.5) 05/29/18 07:20 Plt Count 328 k/uL (150-450) 05/29/18 07:20 Neutrophils % 91 % 05/29/18 07:20 Lymphocytes % 6 % 05/29/18 07:20 Monocytes % 3 % 05/29/18 07:20 Eosinophils % 0 % 05/29/18 07:20 Basophils % 0 % 05/29/18 07:20 Neutrophils # 12.9 k/uL (1.3-7.7) H 05/29/18 07:20 Lymphocytes # 0.9 k/uL (1.0-4.8) L 05/29/18 07:20 Monocytes # 0.4 k/uL (0-1.0) 05/29/18 07:20 Eosinophils # 0.0 k/uL (0-0.7) 05/29/18 07:20 Basophils # 0.0 k/uL (0-0.2) 05/29/18 07:20 Hypochromasia Marked 05/24/18 08:15 Sodium 143 mmol/L (137-145) 05/29/18 10:40 Potassium 3.7 mmol/L (3.5-5.1) 05/29/18 10:40 Chloride 108 mmol/L (98-107) H 05/29/18 10:40 Carbon Dioxide 21 mmol/L (22-30) L 05/29/18 10:40 Anion Gap 14 mmol/L 05/29/18 10:40 BUN 15 mg/dL (7-17) 05/29/18 10:40 Creatinine 0.40 mg/dL (0.52-1.04) L 05/29/18 10:40 Est GFR (CKD-EPI)AfAm >90 (>60 ml/min/1.73 sqM) 05/29/18 10:40 Est GFR (CKD-EPI)NonAf >90 (>60 ml/min/1.73 sqM) 05/29/18 10:40 Glucose 318 mg/dL (74-99) H 05/29/18 10:40 POC Glucose (mg/dL) 333 mg/dL (75-99) H 05/29/18 20:25 POC Glu Director [employer]ience Marketing ISAMAR Evon Brian 05/29/18 20:[address] Glu mg/dL 146 05/23/18 17:55 Hemoglobin A1c 6.7 % (4.0-6.0) H 05/23/18 17:55 Calcium 9.8 mg/dL (8.4-10.2) 05/29/18 10:40 Total Bilirubin 0.2 mg/dL (0.2-1.3) 05/25/18 07:04 AST 18 U/L (14-36) 05/25/18 07:04 ALT 32 U/L (9-52) 05/25/18 07:04 Alkaline Phosphatase 73 U/L (38-126) 05/25/18 07:04 Total Protein 5.8 g/dL (6.3-8.2) L 05/25/18 07:04 Albumin 3.5 g/dL (3.5-5.0) 05/25/18 07:04 Urine Color Colorless 05/23/18 17:55 Urine Appearance Clear (Clear) 05/23/18 17:55 Urine pH 6.0 (5.0-8.0) 05/23/18 17:55 Ur Specific [place] 1.003 (1.001-1.035) 05/23/18 17:55 Urine Protein Negative (Negative) 05/23/18 17:55 Urine Glucose (UA) Negative (Negative) 05/23/18 17:55 Urine Ketones Negative (Negative) 05/23/18 17:55 Urine Blood Negative (Negative) 05/23/18 17:55 Urine Nitrite Negative (Negative) 05/23/18 17:55 Urine Bilirubin Negative (Negative) 05/23/18 17:55 Urine Urobilinogen <2.0 mg/dL (<2.0) 05/23/18 17:55 Ur Leukocyte Esterase Negative (Negative) 05/23/18 17:55 Microbiology 05/23/18 17:55 Blood Blood Culture - Final No Growth after 144 hours 05/23/18 17:55 Urine,Clean Catch Urine Culture - Final Assessment and Plan (1) Status migrainosus without intractable migraine Current Visit: Yes Status: Acute Code(s): G43.901 - MIGRAINE, UNSP, NOT INTRACTABLE, WITH STATUS MIGRAINOSUS SNOMED Code(s): 354451121 (2) Dysautonomia Current Visit: No Status: Acute Code(s): G90.9 - DISORDER OF THE AUTONOMIC NERVOUS SYSTEM, UNSPECIFIED SNOMED Code(s): 87403475 (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 Presents for symptoms of her severe headache as well as low-grade fevers and concerns to urinary tract infection. At the extended care where she is receiving rehab: . The patient is now treatment for this and has had good response to therapy. In repeat blood cultures are now negative. Urine cultures also negative. She's had an adequate response to antibiotic therapy and will be completed as of today. Apparently she will receive her last dose of steroids tomorrow and then will go back to rehab to finish her course of physical therapy. She with steroids have been somewhat helpful in helping her severe headaches and occipital neuralgia. She will not need ongoing antibiotic therapy to cover transfer. As far as prior outpatient fluids this was being utilized when she was not having access to [facility]. At that she has [facility] facility she is having no further nausea and emesis and able to hydrate herself adequately. As long she is able to maintain adequate hydration would not need outpatient fluid supplementation. The patient freely relates she was at [facility] who thought she had fictitious syndrome. Despite this may fit her with braces for the left foot and left arm and center to rehab to regain her strength. Current Visit: Yes Status: Acute Code(s): A49.8 - OTHER BACTERIAL INFECTIONS OF UNSPECIFIED SITE; Z16.12 - EXTENDED SPECTRUM BETA LACTAMASE (ESBL ) RESISTANCE SNOMED Code(s): 647172254
[2018-05-30] MEDS: LORazepam 2 MG/ML INJ IV PRN (02:58)
[2018-05-30 05:59] VITALS: BP 125/71; PULSE 83; TEMP 97
[2018-05-30] MEDS: LEVOTHYROXINE 125 MCG TAB PO SCH (06:40)
[2018-05-30 06:59] LABS: Basophils % (A) 0 %; Eosinophils % (A) 0 %; HCT 36.5 % (34.0-46.0); HGB 12.2 gm/dL (11.4-16.0); Lymphocytes # (A) 0.8 k/uL (1.0-4.8); Lymphocytes % (A) 6 %; MCH 28.9 pg (25.0-35.0); MCHC 33.4 g/dL (31.0-37.0); MCV 86.7 fL (80.0-100.0); Mean Platelet Volume 6.5; Monocytes # (A) 0.4 k/uL (0-1.0); Monocytes % (A) 3 %; Neutrophils # (A) 11.6 k/uL (1.3-7.7); Neutrophils % (A) 90 %; Platelet Count 346 k/uL (150-450); RBC 4.21 m/uL (3.80-5.40); RDW 14.4 % (11.5-15.5); WBC 12.8 k/uL (3.8-10.6)
[2018-05-30 07:07] LABS: Anion Gap 16 mmol/L; Blood Urea Nitrogen 13 mg/dL (7-17); Calcium 9.6 mg/dL (8.4-10.2); Carbon Dioxide 22 mmol/L (22-30); Chloride 104 mmol/L (98-107); Glucose 251 mg/dL (74-99); Potassium 3.9 mmol/L (3.5-5.1); Sodium 142 mmol/L (137-145)
[2018-05-30 07:16] LABS: Glucose,Whole Blood 249 mg/dL (75-99)
[2018-05-30] MEDS: TOPIRAMATE 25 MG TAB PO SCH (07:58)
[2018-05-30] MEDS: INSULIN ASPART 100 UNIT/ML 1 ML 10 ML VIAL SQ SCH ×2 (07:58→13:16)
[2018-05-30] MEDS: CYANOCOBALAMIN 500 MCG TAB PO SCH (07:58)
[2018-05-30] MEDS: SENNOSIDES 8.6 MG TAB PO SCH (07:59)
[2018-05-30] MEDS: RIVAROXABAN 20 MG TAB PO SCH (07:59)
[2018-05-30] MEDS: METOCLOPRAMIDE 10 MG TAB PO SCH ×2 (07:59→13:16)
[2018-05-30] MEDS: traMADol 50 MG TAB PO SCH ×2 (07:59→13:16)
[2018-05-30] MEDS: LORATADINE 10 MG TAB PO SCH (07:59)
[2018-05-30] MEDS: METOPROLOL SUCCINATE (ER) 100 MG TAB.ER.24H PO SCH (07:59)
[2018-05-30] MEDS: FAMOTIDINE 20 MG TAB PO SCH (08:00)
[2018-05-30] MEDS: LOSARTAN 50 MG TAB PO SCH (08:01)
[2018-05-30] MEDS: NYSTATIN 100,000UNIT/GM CREAM 30 GM TUBE TOPICAL SCH (08:01)
[2018-05-30] MEDS: BUTALB/APAP/CAFF 50-325-40MG TAB PO PRN (08:17)
[2018-05-30 10:59] VITALS: BMI 40.2
--- NOTE | 2018-05-30 11:37 | P.DS ---
Providers Date of admission: 05/23/18 18:05 Expected date of discharge: 05/30/18 Attending physician: Maryellen Joel Consults: 05/23/18 18:30 Consult Physician Stat Consulting Provider: Jerson Hansen Consult Reason/Comments: UTI Do you want consulting provider notified?: Yes 05/26/18 15:03 Consult to Anesthesia Routine Consulting Provider: Anesthesia,Services Consult Reason/Comments: Pain management 05/26/18 16:27 Consult Physician Routine Consulting Provider: Leah Vickers Consult Reason/Comments: headache Do you want consulting provider notified?: Yes Primary care physician: [facility] Course: Discharge diagnosis 1. Urinary tract infection. Urine culture through PCP positive ESBL. Dr. Hansen has been consulted. Meropenem antibiotic has been ordered. Dr. Llanes covering for infectious disease. Recommendation for short 3-5 day course of IV meropenem that can be discontinued if these urine cultures obtained this admission are negative per Dr. Llanes. Urine culture negative, blood culture negative. Patient will be discharged home with no antibiotics 2)History of Mitochondrial DNA depletion disease 3)History of blood clots, patient is currently managed on xeralto 5)Type 2 Diabetes Mellitus home medications have been reordered. 6)Essential Hypertension- continue on current medications 7)History of bipolar disorder 8)Hypothyroidism- continue synthroid 9)Weakness on Left side- recent admission [facility]. Per [facility] stroke has been ruled out. Physical therapy has been consulted 10)History of systemic lupus erythematosus 11) History of Postural orthostatic tachycardia syndrome 12) History of Migraine- maintain on topamax, patient is having severe headache recommendation per neurology is to try IV Solu-Medrol 250 mg every 8 hours and magnesium 1 g daily will initiate therapy. Recommendation for 3 days of therapy with IV Solu-Medrol. Per neurology patient would benefit from a bilateral greater occipital nerve blocks eventually but would require having her anticoagulants on hold. Solu-Medrol complete. Patient will be discharged home on ferrous, tramadol and Zanaflex per anesthesia pain service recommendations Hospital course This is a 37-year-old female patient who presented to the emergency room with a chief complaint of urinary tract infection. Patient has been staying at [facility]. Patient been complaining of urinary frequency and burning. Urine culture completed showing ESBL through primary care office. Due to patient's complicated medical history of Dysautonomia-progressive neurological disorder and mitochondrial disease and frequent UTIs, Dr. Hansen has been consulted. Patient had recent admission to [facility] for left sided weakness and headache. Patient's workup at [facility] was negative for stroke. Other medical history includes lupus anticoagulant disorder on anticoagulation, type 2 diabetes and history of recurrent UTIs. Meropenem antibiotic has been ordered and Dr. Hansen has been consulted. On 05/25/2018 patient resting comfortably in bed. States pain from headache and urinary systems have improved. Dr. Fullered covering for infectious disease. Recommendation for a short 3-5 day course of IV meropenem that can be discontinued if the urine culture obtained this admission is negative. Patient denies chest pain or shortness of breath at this time. On 05/26/2018 patient resting comfortably in bed. Does state that she still is having headaches. Patient denies chest pain or shortness of breath at this time. Patient does state her urinary symptoms have improved. Patient denies nausea vomiting or diarrhea. On 05/27/2018 patient still complaining of severe headache denies any complaints otherwise this time. On 05/28/2018 patient is alert and oriented 3 in no apparent distress she states that her headache has improved since yesterday, she is complaining of yeast infection under her armpit, she is complaining of difficulty sleeping due to the use of steroids, otherwise she denies any complaints, there is no chest pain or shortness of breath no cough no fever or chills no nausea or vomiting no abdominal pain and no urinary symptoms On 05/29/2018 patient is alert and oriented 3 in no apparent distress. Patient states that headaches have improved since starting the IV Solu-Medrol per neurology. Patient states she is no longer having urinary symptoms of burning and urgency. Patient denies chest pain or shortness of breath On 05/30/2018 patient is eager to get back to [facility]. Patient states that there has been some improvement with headache. Patient denies any urinary symptoms at this time. patient has been cleared for discharge from infectious disease. Patient Condition at Discharge: Stable Plan - Discharge Summary Discharge Rx Participant: No New Discharge Prescriptions: New Butalb/APAP/Caff 50-325-40Mg [Fioricet 50-325-40] 1 each PO Q8HR PRN 3 Days # 9 tab PRN Reason: Headache Nystatin 100,000Unit/gm Cream [Mycostatin Cream] 1 applic TOPICAL BID #1 tube tiZANidine [Zanaflex] 2 mg PO DAILY 3 Days #3 tab traMADol HCl [Ultram] 50 mg PO QID PRN 3 Days #12 tab PRN Reason: pain Continue tiZANidine [Zanaflex] 8 mg PO HS Rivaroxaban [Xarelto] 20 mg PO DAILY Metoclopramide [Reglan] 10 mg PO ACHS Trimethobenzamide HCl [Tigan] 300 mg PO TID PRN PRN Reason: Nausea Metoprolol Succinate (ER) [Toprol XL] 100 mg PO DAILY Ranitidine HCl 150 mg PO BID Losartan [Cozaar] 50 mg PO DAILY Insulin Glargine [Lantus] 35 unit SQ HS Topiramate [Topamax] 75 mg PO BID Ondansetron [Zofran ODT] 8 mg PO Q8H PRN PRN Reason: Nausea Sennosides [Senna] 8.6 mg PO Q12H Levothyroxine Sodium 250 mcg PO DAILY Loratadine [Claritin] 10 mg PO DAILY Insulin Lispro [humaLOG Kwikpen] See Protocol SQ ACHS Cyanocobalamin (Vitamin B-12) [Vitamin B-12] 2,000 mcg PO DAILY Discontinued Acetaminophen Tab [Tylenol Tab] 650 mg PO Q4H PRN PRN Reason: Fever And/ Or Pain Discharge Medication List Rivaroxaban [Xarelto] 20 mg PO DAILY 03/09/17 [History] tiZANidine [Zanaflex] 8 mg PO HS 03/09/17 [History] Metoclopramide [Reglan] 10 mg PO ACHS 07/29/17 [History] Trimethobenzamide HCl [Tigan] 300 mg PO TID PRN 09/25/17 [History] Metoprolol Succinate (ER) [Toprol XL] 100 mg PO DAILY 10/24/17 [History] Ranitidine HCl 150 mg PO BID 12/17/17 [History] Insulin Glargine [Lantus] 35 unit SQ HS 03/15/18 [History] Losartan [Cozaar] 50 mg PO DAILY 03/15/18 [History] Cyanocobalamin (Vitamin B-12) [Vitamin B-12] 2,000 mcg PO DAILY 05/23/18 [ History] Insulin Lispro [humaLOG Kwikpen] See Protocol SQ ACHS 05/23/18 [History] Levothyroxine Sodium 250 mcg PO DAILY 05/23/18 [History] Loratadine [Claritin] 10 mg PO DAILY 05/23/18 [History] Ondansetron [Zofran ODT] 8 mg PO Q8H PRN 05/23/18 [History] Sennosides [Senna] 8.6 mg PO Q12H 05/23/18 [History] Topiramate [Topamax] 75 mg PO BID 05/23/18 [History] Butalb/APAP/Caff 50-325-40Mg [Fioricet 50-325-40] 1 each PO Q8HR PRN 3 Days #9 tab 05/30/18 [Rx] Nystatin 100,000Unit/gm Cream [Mycostatin Cream] 1 applic TOPICAL BID #1 tube [Rx] tiZANidine [Zanaflex] 2 mg PO DAILY 3 Days #3 tab 05/30/18 [Rx] traMADol HCl [Ultram] 50 mg PO QID PRN 3 Days #12 tab 05/30/18 [Rx] Follow up Appointment(s)/Referral(s): Maryellen Joel MD [Primary Care Provider] - 1-2 days Juliane Llanes MD [STAFF PHYSICIAN] - 1 Week Activity/Diet/Wound Care/Special Instructions: activity as tolerated continue consistent carb diet [facility]charge [facility]
[2018-05-30 12:19] LABS: Glucose,Whole Blood 275 mg/dL (75-99)
== END 2018-05-30 13:44 | DRG 690 ==
LOC: EC 16:20 → 4MS4W 18:05
PROVIDERS: ADMIT Internal Medicine; ATTEND Internal Medicine
DX: N39.0 Urinary tract infection, site not specified (principal); E88.49 Other mitochondrial metabolism disorders; D68.62 Lupus anticoagulant syndrome; Q21.1 Atrial septal defect; D68.61 Antiphospholipid syndrome; E11.40 Type 2 diabetes mellitus with diabetic neuropathy, unspecified; G43.901 Migraine, unspecified, not intractable, with status migrainosus; B96.20 Unspecified Escherichia coli [E. coli] as the cause of diseases classified elsewhere; Z16.12 Extended spectrum beta lactamase (ESBL) resistance; M54.81 Occipital neuralgia; G47.419 Narcolepsy without cataplexy; G24.9 Dystonia, unspecified; I10 Essential (primary) hypertension; E86.0 Dehydration; G90.1 Familial dysautonomia [Riley-Day]; E06.3 Autoimmune thyroiditis; E28.2 Polycystic ovarian syndrome; F31.9 Bipolar disorder, unspecified; R53.1 Weakness; E03.9 Hypothyroidism, unspecified; Z79.4 Long term (current) use of insulin; Z79.01 Long term (current) use of anticoagulants; Z79.890 Hormone replacement therapy; Z79.899 Other long term (current) drug therapy; Z86.718 Personal history of other venous thrombosis and embolism; Z86.73 Personal history of transient ischemic attack (TIA), and cerebral infarction without residual deficits; Z87.440 Personal history of urinary (tract) infections; Z91.81 History of falling; Z86.14 Personal history of Methicillin resistant Staphylococcus aureus infection; Z86.79 Personal history of other diseases of the circulatory system; Z88.1 Allergy status to other antibiotic agents; Z88.2 Allergy status to sulfonamides; Z88.7 Allergy status to serum and vaccine; Z88.8 Allergy status to other drugs, medicaments and biological substances; Z82.49 Family history of ischemic heart disease and other diseases of the circulatory system; Z83.3 Family history of diabetes mellitus; Z83.49 Family history of other endocrine, nutritional and metabolic diseases; Z83.2 Family history of diseases of the blood and blood-forming organs and certain disorders involving the immune mechanism
CPT/HCPCS: 36415; 70450; 70496; 70498; 80048; 80053; 81003; 83036; 85025; 87040; 87086; 99285

== ENCOUNTER 2018-06-10 16:48 | Inpatient (IN) | payer MEDICARE, OTHER ==
[2018-06-10] MEDS ORDERED: SODIUM CHLORIDE 0.9% 1,000 ML IV STA ×2 (17:15→18:40)
[2018-06-10] MEDS ORDERED: KETOROLAC 30 MG/ML 1 ML VIAL IVP STA (17:15)
--- NOTE | 2018-06-10 17:29 | ED ---
General Adult HPI - General Chief complaint: Fever Stated complaint: Fever Time Seen by Provider: 06/10/18 17:05 Source: patient, RN notes reviewed Mode of arrival: wheelchair Limitations: no limitations - History of Present Illness Initial comments: 37-year-old female presents to the emergency department for a chief complaint of fever times one day. Patient states she noticed her fever was elevated slightly above 101 earlier today. Patient states she took Tylenol about 2 hours ago and it did reduce the fever. Patient states that she was told that since she has a port she needed to come to the emergency department if she had a fever. Patient also states she's having abdominal pain in the right lower quadrant. She states she has had nausea since last night. Patient did vomit twice last night but did not vomit today. Patient has also had diarrhea since last night with 2 episodes today. Patient denies any urinary symptoms at this time such as her usual low back pain and burning with urination. Patient denies cough, congestion, or ear pain. Patient has no other complaints at this time including shortness of breath, chest pain, abdominal pain, nausea or vomiting, headache, or visual changes. - Related Data Home Medications Medication Instructions Recorded Confirmed Rivaroxaban [Xarelto] 20 mg PO DAILY 03/09/17 05/23/18 tiZANidine [Zanaflex] 8 mg PO HS 03/09/17 05/23/18 Metoclopramide [Reglan] 10 mg PO ACHS 07/29/17 05/23/18 Trimethobenzamide HCl [Tigan] 300 mg PO TID PRN 09/25/17 05/23/18 Metoprolol Succinate (ER) [Toprol 100 mg PO DAILY 10/24/17 05/23/18 XL] Ranitidine HCl 150 mg PO BID 12/17/17 05/23/18 Insulin Glargine [Lantus] 35 unit SQ HS 03/15/18 05/23/18 Losartan [Cozaar] 50 mg PO DAILY 03/15/18 05/23/18 Cyanocobalamin (Vitamin B-12) 2,000 mcg PO DAILY 05/23/18 05/23/18 [Vitamin B-12] Insulin Lispro [humaLOG Kwikpen] See Protocol SQ ACHS 05/23/18 05/23/18 Levothyroxine Sodium 250 mcg PO DAILY 05/23/18 05/23/18 Loratadine [Claritin] 10 mg PO DAILY 05/23/18 05/23/18 Ondansetron [Zofran ODT] 8 mg PO Q8H PRN 05/23/18 05/23/18 Sennosides [Senna] 8.6 mg PO Q12H 05/23/18 05/23/18 Topiramate [Topamax] 75 mg PO BID 05/23/18 05/23/18 Previous Rx's Medication Instructions Recorded Butalb/APAP/Caff 50-325-40Mg 1 each PO Q8HR PRN 3 Days #9 tab 05/30/18 [Fioricet 50-325-40] Nystatin 100,000Unit/gm Cream 1 applic TOPICAL BID #1 tube 05/30/18 [Mycostatin Cream] tiZANidine [Zanaflex] 2 mg PO DAILY 3 Days #3 tab 05/30/18 traMADol HCl [Ultram] 50 mg PO QID PRN 3 Days #12 tab 05/30/18 Allergies Allergy/AdvReac Type Severity Reaction Status Date / Time barium sulfate Allergy Anaphylaxis Verified 06/10/18 16:58 diphtheria, pertussis, Allergy Unknown Verified 06/10/18 16:58 tetanus vacc doxepin [Doxepin] Allergy Anaphylaxis Verified 06/10/18 16:58 ephedrine Allergy Unknown Verified 06/10/18 16:58 ertapenem [From Invanz] Allergy Rash/Hives Verified 06/10/18 16:58 influenza virus vaccine, Allergy Anaphylaxis Verified 06/10/18 16:58 specific [Influenza Virus Vacc,Specific] promethazine HCl Allergy Anaphylaxis Verified 06/10/18 16:58 [From Phenergan] doxycycline AdvReac Nausea & Verified 06/10/18 16:58 Vomiting & Diarrhea Pertussis Vaccines AdvReac fever/seizu Verified 06/10/18 16:58 re pseudoephedrine AdvReac Chest Pain Verified 06/10/18 16:58 pseudoephedrine HCl AdvReac Chest Pain Verified 06/10/18 16:58 [From Sudafed] sulfamethoxazole AdvReac Nausea & Verified 06/10/18 16:58 [From Bactrim] Vomiting trimethoprim [From Bactrim] AdvReac Nausea & Verified 06/10/18 16:58 Vomiting Review of Systems ROS Statement: Those systems with pertinent positive or pertinent negative responses have been documented in the HPI. ROS Other: All systems not noted in ROS Statement are negative. Past Medical History Past Medical History: Chest Pain / Angina, CVA/TIA, Diabetes Mellitus, Deep Vein Thrombosis (DVT), Neurologic Disorder, Syncope, Thyroid Disorder Additional Past Medical History / Comment(s): "STROKE LIKE EPISODE D/T MITOCHRONDIAL DISEASE HAD WORK UP DONE AT [facility]. WEARS A BRACE ON LT ANKLE AND LT WRIST".Dysautonomia-progressive neurological disorder, lupus/LUPUS ANTICOAGULANTS, 2004 CVA without residual, ana maria's disease, lymphedema Lt arm d/t DVTs , v-tach, pituitary microadenoma. "mitochondrial disease". patent foramen ovale, narcolepsy, gastropareis, IDDM type II, uti's, falls, orthostatic hypotension/syncope,migraines with hemiplegia, pernicious anemia, polycystic ovarian syndrome, neuropathy bilateral legs/fee-mild, uterine ablation August 2015/patient no longer has periods-had uterine ablation uti's. , midline access for fluids-current access issues has contacted dr quigley. History of Any Multi-Drug Resistant Organisms: ESBL, MRSA Date of last positivie culture/infection: 03/09/17 MRSA/ 05/17/18 ESBL MDRO Source:: MRSA LEFT ARM,/ESBL URINE ECOLI Past Surgical History: Ablation, Uterine Ablation Additional Past Surgical History / Comment(s): colonscopy/egd, angie, stress test. PORT-A -CATH INSERTION 04-28-18 Past Anesthesia/Blood Transfusion Reactions: No Reported Reaction Additional Past Anesthesia/Blood Transfusion Reaction / Comment(s): patient states "It takes a lot of anesthesia for my body to react". Pt has received blood in past without reaction. Past Psychological History: Bipolar, Depression Smoking Status: Never smoker Past Alcohol Use History: None Reported Past Drug Use History: None Reported - Past Family History Brother(s) Family Medical History: Diabetes Mellitus, Hyperlipidemia, Hypertension Additional Family Medical History / Comment(s): Patient states she has 1 brother with no major medical problems. Father Family Medical History: Diabetes Mellitus, Hyperlipidemia, Hypertension Additional Family Medical History / Comment(s): DAD IS 70 YEARS OLD. Patient states she does not have any contact with her father and does not know his medical history. Mother Family Medical History: Blood Disorder, Chest Pain / Angina, CVA/TIA, Hyperlipidemia, Hypertension Additional Family Medical History / Comment(s): AGE 62 HAS LUPUS, blood pressure swings high to low, antiphospholipid antibody syndrome General Exam Limitations: no limitations General appearance: alert, in no apparent distress Head exam: Present: atraumatic, normocephalic, normal inspection Eye exam: Present: normal appearance. Absent: scleral icterus, conjunctival injection ENT exam: Present: normal exam, normal oropharynx, mucous membranes moist, TM's normal bilaterally, normal external ear exam Neck exam: Present: normal inspection, full ROM. Absent: tenderness, meningismus, lymphadenopathy Respiratory exam: Present: normal lung sounds bilaterally. Absent: respiratory distress, wheezes, rales, rhonchi, stridor Cardiovascular Exam: Present: regular rate, normal rhythm, normal heart sounds. Absent: systolic murmur, diastolic murmur, rubs, gallop, clicks GI/Abdominal exam: Present: soft, tenderness (Patient has mild left upper quadrant tenderness as well as right lower quadrant tenderness), normal bowel sounds. Absent: distended, guarding, rebound, rigid Course Vital Signs 06/10/18 06/10/18 06/10/18 16:56 18:43 19:10 Temperature 99.3 F 99 F 100.1 F H Pulse Rate 121 H 115 H 105 H Respiratory 18 20 16 Rate Blood Pressure 171/98 146/92 141/82 O2 Sat by Pulse 97 95 97 Oximetry 06/10/18 20:30 Temperature 98.1 F Pulse Rate 83 Respiratory 15 Rate Blood Pressure 137/85 O2 Sat by Pulse 100 Oximetry EKG Findings - EKG Comments: EKG Findings:: EKG sinus tach, ventricular rate 116, MO interval 132, QRS duration 84 Medical Decision Making - Medical Decision Making 37-year-old female presents to the emergency department with a chief complaint of fever times one day of 101. Patient states it is responsive to Tylenol and she did have Tylenol 2 hours ago. Patient has a port for IV antibiotics for chronic urinary tract infections and has a history of sepsis in the past. Patient complains of vomiting and diarrhea since last night. Patient vomited twice last night but did not vomit today and has had 2 bouts of diarrhea today. Patient also has mild right lower quadrant and left upper quadrant abdominal pain. On presentation to the emergency department patient's temp is 99.3 and pulse 121. Patient does have right lower quadrant abdominal pain as well as left upper quadrant. Patient does have a white count of 13.4. Lactic acid is 2.2 the patient does have a history of chronically elevated lactic. No evidence for urinary tract infection at this time. CT abdomen and pelvis shows stable findings as compared with prior study was a mild degree of liver steatosis. No free air or bowel obstruction. Appendix not visualized. No abnormal attenuation of the area cecal fat. Patient does have persistent tachycardia as well as a mild fever of 100. She will be admitted for IV antibiotics to rule out septicemia. - Lab Data Result diagrams: 06/10/18 18:08 06/10/18 18:08 Lab Results 06/10/18 06/10/18 06/10/18 Range/Units 18:08 18:08 18:08 WBC 13.4 H (3.8-10.6) k/uL RBC 4.60 (3.80-5.40) m/uL Hgb 13.1 (11.4-16.0) gm/dL Hct 38.8 (34.0-46.0) % MCV 84.5 (80.0-100.0) fL MCH 28.6 (25.0-35.0) pg MCHC 33.8 (31.0-37.0) g/dL RDW 14.6 (11.5-15.5) % Plt Count 329 (150-450) k/uL Neutrophils % 78 % Lymphocytes % 14 % Monocytes % 6 % Eosinophils % 1 % Basophils % 0 % Neutrophils # 10.5 H (1.3-7.7) k/uL Lymphocytes # 1.8 (1.0-4.8) k/uL Monocytes # 0.8 (0-1.0) k/uL Eosinophils # 0.1 (0-0.7) k/uL Basophils # 0.0 (0-0.2) k/uL Sodium 142 (137-145) mmol/L Potassium 4.3 (3.5-5.1) mmol/L Chloride 109 H (98-107) mmol/L Carbon Dioxide 21 L (22-30) mmol/L Anion Gap 12 mmol/L BUN 11 (7-17) mg/dL Creatinine 0.60 (0.52-1.04) mg/dL Est GFR (CKD-EPI)AfAm >90 (>60 ml/min/1.73 sqM) Est GFR (CKD-EPI)NonAf >90 (>60 ml/min/1.73 sqM) Glucose 149 H (74-99) mg/dL Plasma Lactic Acid Joce 2.2 H* (0.7-2.0) mmol/L Calcium 10.2 (8.4-10.2) mg/dL Total Bilirubin 0.3 (0.2-1.3) mg/dL AST 25 (14-36) U/L ALT 34 (9-52) U/L Alkaline Phosphatase 99 (38-126) U/L Total Protein 7.1 (6.3-8.2) g/dL Albumin 4.5 (3.5-5.0) g/dL Amylase 46 (30-110) U/L Lipase 71 (23-300) U/L Urine Color Urine Appearance (Clear) Urine pH (5.0-8.0) Ur Specific [place] (1.001-1.035) Urine Protein (Negative) Urine Glucose (UA) (Negative) Urine Ketones (Negative) Urine Blood (Negative) Urine Nitrite (Negative) Urine Bilirubin (Negative) Urine Urobilinogen (<2.0) mg/dL Ur Leukocyte Esterase (Negative) Urine RBC (0-5) /hpf Urine WBC (0-5) /hpf Ur Squamous Epith Cells (0-4) /hpf Urine Bacteria (None) /hpf Hyaline Casts (0-2) /lpf Urine Mucus (None) /hpf 06/10/18 Range/Units 18:16 WBC (3.8-10.6) k/uL RBC (3.80-5.40) m/uL Hgb (11.4-16.0) gm/dL Hct (34.0-46.0) % MCV (80.0-100.0) fL MCH (25.0-35.0) pg MCHC (31.0-37.0) g/dL RDW (11.5-15.5) % Plt Count (150-450) k/uL Neutrophils % % Lymphocytes % % Monocytes % % Eosinophils % % Basophils % % Neutrophils # (1.3-7.7) k/uL Lymphocytes # (1.0-4.8) k/uL Monocytes # (0-1.0) k/uL Eosinophils # (0-0.7) k/uL Basophils # (0-0.2) k/uL Sodium (137-145) mmol/L Potassium (3.5-5.1) mmol/L Chloride (98-107) mmol/L Carbon Dioxide (22-30) mmol/L Anion Gap mmol/L BUN (7-17) mg/dL Creatinine (0.52-1.04) mg/dL Est GFR (CKD-EPI)AfAm (>60 ml/min/1.73 sqM) Est GFR (CKD-EPI)NonAf (>60 ml/min/1.73 sqM) Glucose (74-99) mg/dL Plasma Lactic Acid Joce (0.7-2.0) mmol/L Calcium (8.4-10.2) mg/dL Total Bilirubin (0.2-1.3) mg/dL AST (14-36) U/L ALT (9-52) U/L Alkaline Phosphatase (38-126) U/L Total Protein (6.3-8.2) g/dL Albumin (3.5-5.0) g/dL Amylase (30-110) U/L Lipase (23-300) U/L Urine Color Yellow Urine Appearance Cloudy H (Clear) Urine pH 5.0 (5.0-8.0) Ur Specific [place] 1.026 (1.001-1.035) Urine Protein 1+ H (Negative) Urine Glucose (UA) Negative (Negative) Urine Ketones 1+ H (Negative) Urine Blood Negative (Negative) Urine Nitrite Negative (Negative) Urine Bilirubin Negative (Negative) Urine Urobilinogen 2.0 (<2.0) mg/dL Ur Leukocyte Esterase Negative (Negative) Urine RBC 3 (0-5) /hpf Urine WBC 2 (0-5) /hpf Ur Squamous Epith Cells 7 H (0-4) /hpf Urine Bacteria Rare H (None) /hpf Hyaline Casts 13 H (0-2) /lpf Urine Mucus Few H (None) /hpf Disposition Clinical Impression: Fever Narrative: rule out bacteremia Disposition: ADMITTED IP TO THIS HOSP Condition: Good Is patient prescribed a controlled substance at d/c from ED?: No Referrals: Maryellen Joel MD [Primary Care Provider] - 1-2 days Time of Disposition: 20:41
[2018-06-10 18:19] LABS: Basophils % (A) 0 %; Eosinophils # (A) 0.1 k/uL (0-0.7); Eosinophils % (A) 1 %; HCT 38.8 % (34.0-46.0); HGB 13.1 gm/dL (11.4-16.0); Lymphocytes # (A) 1.8 k/uL (1.0-4.8); Lymphocytes % (A) 14 %; MCH 28.6 pg (25.0-35.0); MCHC 33.8 g/dL (31.0-37.0); MCV 84.5 fL (80.0-100.0); Mean Platelet Volume 6.7; Monocytes # (A) 0.8 k/uL (0-1.0); Monocytes % (A) 6 %; Neutrophils # (A) 10.5 k/uL (1.3-7.7); Neutrophils % (A) 78 %; Platelet Count 329 k/uL (150-450); RDW 14.6 % (11.5-15.5); WBC 13.4 k/uL (3.8-10.6)
[2018-06-10 18:28] LABS: ALT 34 U/L (9-52); AST 25 U/L (14-36); Albumin 4.5 g/dL (3.5-5.0); Alkaline Phosphatase 99 U/L (38-126); Amylase 46 U/L (30-110); Anion Gap 12 mmol/L; Blood Urea Nitrogen 11 mg/dL (7-17); Calcium 10.2 mg/dL (8.4-10.2); Carbon Dioxide 21 mmol/L (22-30); Chloride 109 mmol/L (98-107); Glucose 149 mg/dL (74-99); Lipase 71 U/L (23-300); Potassium 4.3 mmol/L (3.5-5.1); Sodium 142 mmol/L (137-145); Total Bilirubin 0.3 mg/dL (0.2-1.3); Total Protein 7.1 g/dL (6.3-8.2)
[2018-06-10 18:31] LABS: Appearance,Urine Cloudy (Clear); Bacteria,Urine Rare /hpf; Bilirubin,Urine Negative (Negative); Blood,Urine Negative (Negative); Color,Urine Yellow; Glucose,Urine (UA) Negative (Negative); Hyaline Casts,Urine 13 /lpf (0-2); Ketones,Urine 1+ (Negative); Leukocyte Esterase,Urine Negative (Negative); Mucus,Urine Few /hpf; Nitrite,Urine Negative (Negative); Protein,Urine 1+ (Negative); RBC,Urine 3 /hpf (0-5); Specific Gravity,Urine 1.026 (1.001-1.035); Squamous Epithelial Cell,Urine 7 /hpf (0-4); WBC,Urine 2 /hpf (0-5)
--- NOTE | 2018-06-10 19:49 | CT ---
EXAMINATION TYPE: CT abdomen pelvis w con DATE OF EXAM: 06/10/2018 COMPARISON: Prior CT study dated 04/15/2018. HISTORY: Right lower quadrant pain, nausea, fever and vomiting. CT DLP: 1737.4 mGycm Automated exposure control for dose reduction was used. TECHNIQUE: Helical acquisition of images was performed from the lung bases through the pelvis. CONTRAST: Performed without Oral Contrast and with IV Contrast, patient injected with 100ml mL of Isovue 300. FINDINGS: LUNG BASES: No significant abnormality is appreciated. LIVER/GB: Slight diminished attenuation coefficient of the liver as compared to the spleen indicating a mild degree of liver steatosis. No distention of the intrahepatic biliary radicles. No cholelithia sis. PANCREAS: No significant abnormality is seen. SPLEEN: No significant abnormality is seen. ADRENALS: No significant abnormality is seen. KIDNEYS: No significant abnormality is seen. The urinary bladder is not distended or well evaluated o n the present exam. FREE AIR: No free air is visualized. RETROPERITONEAL ADENOPATHY: None visualized REPRODUCTIVE ORGANS: No significant abnormality is seen URINARY BLADDER: No significant abnormality is seen. PELVIC ADENOPATHY: None visualized. OSSEOUS STRUCTURES: No significant abnormality is seen. BOWEL: The appendix is not visible. No abnormal attenuation of the pericecal fat. No free intraperito rickye air. OTHER: IMPRESSION: STABLE FINDINGS COMPARED WITH THE PRIOR CT STUDY WITH A MILD DEGREE OF LIVER STEATOSIS. NO FREE AIR OR BOWEL OBSTRUCTION. NO CHOLELITHIASIS APPENDIX IS NOT VISUALIZED. NO ABNORMAL ATTENUATION OF THE PERICECAL FAT.
[2018-06-10] MEDS ORDERED: AMPICILLIN-SULBACTAM 3 GM in SODIUM CHLORIDE 0.9% 100 ML IVPB STA (19:56)
[2018-06-10] MEDS ORDERED: NALOXONE 0.4 MG/ML 1 ML VIAL IV PRN (20:41)
[2018-06-10] MEDS ORDERED: MORPHINE SULFATE 4 MG/ML SYRINGE IV PRN (20:41)
[2018-06-10] MEDS ORDERED: KETOROLAC 30 MG/ML 1 ML VIAL IVP PRN (20:41)
[2018-06-10] MEDS ORDERED: ACETAMINOPHEN TAB 325 MG TAB PO PRN (20:41)
[2018-06-10] MEDS ORDERED: IBUPROFEN 400 MG TAB PO PRN (20:41)
[2018-06-10] MEDS: SODIUM CHLORIDE 0.9% 1,000 ML IV SCH (21:31)
[2018-06-10 22:58] LABS: Glucose,Whole Blood 133 mg/dL (75-99)
[2018-06-10] MEDS ORDERED: TRIMETHOBENZAMIDE 300 MG CAP PO PRN (23:46)
[2018-06-10] MEDS ORDERED: BUTALB/APAP/CAFF 50-325-40MG TAB PO PRN (23:46)
[2018-06-11] MEDS: INSULIN DETEMIR 100 UNIT/ML 10 ML VIAL SQ SCH ×2 (01:09→21:58)
[2018-06-11] MEDS: FAMOTIDINE 20 MG TAB PO SCH ×3 (01:09→21:13)
[2018-06-11] MEDS: RIVAROXABAN 20 MG TAB PO SCH ×2 (01:09→21:13)
[2018-06-11] MEDS: SENNOSIDES 8.6 MG TAB PO SCH ×3 (01:09→21:13)
[2018-06-11] MEDS: tiZANidine 4 MG TAB PO SCH ×2 (01:09→21:13)
[2018-06-11] MEDS: TOPIRAMATE 25 MG TAB PO SCH ×3 (01:10→21:13)
[2018-06-11] MEDS: AMPICILLIN-SULBACTAM 3 GM in SODIUM CHLORIDE 0.9% 100 ML IVPB SCH ×4 (03:26→21:13)
[2018-06-11] MEDS: LEVOTHYROXINE 125 MCG TAB PO SCH (06:38)
[2018-06-11] MEDS: SODIUM CHLORIDE 0.9% 1,000 ML IV SCH ×3 (06:39→21:14)
[2018-06-11 07:05] LABS: Glucose,Whole Blood 152 mg/dL (75-99)
[2018-06-11] MEDS: METOPROLOL SUCCINATE (ER) 100 MG TAB.ER.24H PO SCH (08:34)
[2018-06-11] MEDS: CYANOCOBALAMIN 500 MCG TAB PO SCH (08:34)
[2018-06-11] MEDS: LORATADINE 10 MG TAB PO SCH (08:34)
[2018-06-11] MEDS: LOSARTAN 50 MG TAB PO SCH (08:34)
[2018-06-11] MEDS: INSULIN ASPART 100 UNIT/ML 1 ML 10 ML VIAL SQ SCH ×4 (08:35→21:45)
--- NOTE | 2018-06-11 11:08 | P.HPIM ---
History of Present Illness H&P Date: 06/11/18 Chief Complaint: Febrile illness Patient is a 37-year-old female who presented to [facility] emergency room with a chief complaint of fever and generalized malaise she was evaluated in the emergency room she had mild leukocytosis and evidence of urinary tract infection she was started on IV antibiotic and was admitted to medical floor. Patient has a known history of mitochondrial DNA depletion syndrome, and has recurrent urinary tract infections, she is followed as outpatient by Dr. Hansen. Patient had multiple urinary tract infections this year, her urine culture was positive in the past for E. coli and Klebsiella pneumonia including positive culture for ESBL. Urine culture was done in the emergency room and she was started on IV Unasyn. On review of systems: Patient is alert and oriented 3, she states she had a temperature of 101 home, she felt tired and sweaty, otherwise she denies any complaint, there is no headache or dizziness, no chest pain no shortness of breath no cough, no nausea or vomiting no abdominal pain no diarrhea or constipation, she has some frequency with urination but no burning and no urgency, there is no hematuria. Past Medical History Past Medical History: Chest Pain / Angina, CVA/TIA, Diabetes Mellitus, Deep Vein Thrombosis (DVT), Neurologic Disorder, Syncope, Thyroid Disorder Additional Past Medical History / Comment(s): "STROKE LIKE EPISODE D/T MITOCHRONDIAL DISEASE HAD WORK UP DONE AT [facility]. WEARS A BRACE ON LT ANKLE AND LT WRIST".Dysautonomia-progressive neurological disorder, lupus/LUPUS ANTICOAGULANTS, 2004 CVA without residual, ana maria's disease, lymphedema Lt arm d/t DVTs , v-tach, pituitary microadenoma. "mitochondrial disease". patent foramen ovale, narcolepsy, gastropareis, IDDM type II, uti's, falls, orthostatic hypotension/syncope,migraines with hemiplegia, pernicious anemia, polycystic ovarian syndrome, neuropathy bilateral legs/fee-mild, uterine ablation August 2015/patient no longer has periods-had uterine ablation uti's. , midline access for fluids-current access issues has contacted dr hansen. History of Any Multi-Drug Resistant Organisms: ESBL, MRSA Date of last positivie culture/infection: 03/09/17 MRSA/ 05/17/18 ESBL MDRO Source:: MRSA LEFT ARM,/ESBL URINE ECOLI Past Surgical History: Ablation, Uterine Ablation Additional Past Surgical History / Comment(s): colonscopy/egd, angie, stress test. PORT-A -CATH INSERTION 04-28-18 Past Anesthesia/Blood Transfusion Reactions: No Reported Reaction Additional Past Anesthesia/Blood Transfusion Reaction / Comment(s): patient states "It takes a lot of anesthesia for my body to react". Pt has received blood in past without reaction. Past Psychological History: Bipolar, Depression Additional Psychological History / Comment(s): CURRENTLY PT AT [facility] FOR REHAB. PT STATED THAT SHE CAN STAND AND TRANSFER BUT IS CURRENTLY GETTING PT TO HELP HER WALK. CURRENTLY USES W/C TO GET AROUND). She does not drive she gets to [facility] [place] by bus or cab. She has hx of suicide attempt in 2014 but states that depression is stable at this time. No animal exposures. No tobacco or alcohol use. Single without children. Does not relate to other family members with her genetic disorder Smoking Status: Never smoker Past Alcohol Use History: None Reported Additional Past Alcohol Use History / Comment(s): Patient is a lifelong nonsmoker. She denies any medical marijuana, marijuana, street drug or alcohol use. She resides with her mom. She can walk short distances and otherwise uses a wheelchair. She has a walker. She does not drive but usually gets appointments by [facility]. She has history of suicide attempt in 2014 but states depression is stable. No animal exposures. Patient is single without children. Patient denies any family members with her genetic disorder. Past Drug Use History: None Reported - Past Family History Brother(s) Family Medical History: Diabetes Mellitus, Hyperlipidemia, Hypertension Additional Family Medical History / Comment(s): Patient states she has 1 brother with no major medical problems. Father Family Medical History: Diabetes Mellitus, Hyperlipidemia, Hypertension Additional Family Medical History / Comment(s): DAD IS 70 YEARS OLD. Patient states she does not have any contact with her father and does not know his medical history. Mother Family Medical History: Blood Disorder, Chest Pain / Angina, CVA/TIA, Hyperlipidemia, Hypertension Additional Family Medical History / Comment(s): AGE 62 HAS LUPUS, blood pressure swings high to low, antiphospholipid antibody syndrome Medications and Allergies Home Medications Medication Instructions Recorded Confirmed Type Rivaroxaban [Xarelto] 20 mg PO DAILY 03/09/17 06/10/18 History tiZANidine [Zanaflex] 8 mg PO HS 03/09/17 06/10/18 History Metoclopramide [Reglan] 10 mg PO ACHS 07/29/17 06/10/18 History Trimethobenzamide HCl [Tigan] 300 mg PO TID PRN 09/25/17 06/10/18 History Metoprolol Succinate (ER) [Toprol 100 mg PO DAILY 10/24/17 06/10/18 History XL] Ranitidine HCl 150 mg PO BID 12/17/17 06/10/18 History Insulin Glargine [Lantus] 35 unit SQ HS 03/15/18 06/10/18 History Losartan [Cozaar] 50 mg PO DAILY 03/15/18 06/10/18 History Cyanocobalamin (Vitamin B-12) 2,000 mcg PO DAILY 05/23/18 06/10/18 History [Vitamin B-12] Insulin Lispro [humaLOG Kwikpen] See Protocol SQ ACHS 05/23/18 06/10/18 History Levothyroxine Sodium 250 mcg PO DAILY 05/23/18 06/10/18 History Loratadine [Claritin] 10 mg PO DAILY 05/23/18 06/10/18 History Ondansetron [Zofran ODT] 8 mg PO Q8H PRN 05/23/18 06/10/18 History Sennosides [Senna] 8.6 mg PO Q12H 05/23/18 06/10/18 History Topiramate [Topamax] 75 mg PO BID 05/23/18 06/10/18 History Butalb/APAP/Caff 50-325-40Mg 1 each PO Q8HR PRN 3 Days #9 tab 05/30/18 06/10/18 Rx [Fioricet 50-325-40] tiZANidine [Zanaflex] 2 mg PO DAILY 3 Days #3 tab 05/30/18 06/10/18 Rx traMADol HCl [Ultram] 50 mg PO QID PRN 3 Days #12 tab 05/30/18 06/10/18 Rx Allergies Allergy/AdvReac Type Severity Reaction Status Date / Time barium sulfate Allergy Anaphylaxis Verified 06/10/18 16:58 diphtheria, pertussis, Allergy Unknown Verified 06/10/18 16:58 tetanus vacc doxepin [Doxepin] Allergy Anaphylaxis Verified 06/10/18 16:58 ephedrine Allergy Unknown Verified 06/10/18 16:58 ertapenem [From Invanz] Allergy Rash/Hives Verified 06/10/18 16:58 influenza virus vaccine, Allergy Anaphylaxis Verified 06/10/18 16:58 specific [Influenza Virus Vacc,Specific] promethazine HCl Allergy Anaphylaxis Verified 06/10/18 16:58 [From Phenergan] doxycycline AdvReac Nausea & Verified 06/10/18 16:58 Vomiting & Diarrhea Pertussis Vaccines AdvReac fever/seizu Verified 06/10/18 16:58 re pseudoephedrine AdvReac Chest Pain Verified 06/10/18 16:58 pseudoephedrine HCl AdvReac Chest Pain Verified 06/10/18 16:58 [From Sudafed] sulfamethoxazole AdvReac Nausea & Verified 06/10/18 16:58 [From Bactrim] Vomiting trimethoprim [From Bactrim] AdvReac Nausea & Verified 06/10/18 16:58 Vomiting Physical Exam Vitals: Vital Signs Temp Pulse Pulse Resp BP BP Pulse Ox 06/11/18 07:15 97.0 F L 73 16 95/49 98 06/11/18 00:58 97.7 F 93 19 125/70 96 06/10/18 20:30 98.1 F 83 15 137/85 100 06/10/18 19:10 100.1 F H 105 H 16 141/82 97 06/10/18 18:43 99 F 115 H 20 146/92 95 06/10/18 16:56 99.3 F 121 H 18 171/98 97 Intake and Output 06/10/18 06/11/18 06/11/18 22:59 06:59 14:59 Other: # Voids 1 Weight 108.862 kg In general patient is alert and oriented 3 in no apparent distress HEENT head normocephalic and atraumatic Neck is supple no JVD no goiter no lymphadenopathy Chest exam reveals a few scattered rhonchi no wheezing Cardiac exam reveals regular heart sounds S1 and S2 no gallops no murmurs Abdomen is soft nontender no organomegaly with normal bowel sounds Extremity exam reveals no edema no cyanosis or clubbing Results CBC & Chem 7: 06/10/18 18:08 06/10/18 18:08 Labs: Abnormal Lab Results - Last 24 Hours (Table) 06/10/18 06/10/18 06/10/18 Range/Units 18:08 18:08 18:08 WBC 13.4 H (3.8-10.6) k/uL Neutrophils # 10.5 H (1.3-7.7) k/uL Chloride 109 H (98-107) mmol/L Carbon Dioxide 21 L (22-30) mmol/L Glucose 149 H (74-99) mg/dL POC Glucose (mg/dL) (75-99) mg/dL Plasma Lactic Acid Joce 2.2 H* (0.7-2.0) mmol/L Urine Appearance (Clear) Urine Protein (Negative) Urine Ketones (Negative) Ur Squamous Epith Cells (0-4) /hpf Urine Bacteria (None) /hpf Hyaline Casts (0-2) /lpf Urine Mucus (None) /hpf 06/10/18 06/10/18 06/11/18 Range/Units 18:16 22:56 06:58 WBC (3.8-10.6) k/uL Neutrophils # (1.3-7.7) k/uL Chloride (98-107) mmol/L Carbon Dioxide (22-30) mmol/L Glucose (74-99) mg/dL POC Glucose (mg/dL) 133 H 152 H (75-99) mg/dL Plasma Lactic Acid Joce (0.7-2.0) mmol/L Urine Appearance Cloudy H (Clear) Urine Protein 1+ H (Negative) Urine Ketones 1+ H (Negative) Ur Squamous Epith Cells 7 H (0-4) /hpf Urine Bacteria Rare H (None) /hpf Hyaline Casts 13 H (0-2) /lpf Urine Mucus Few H (None) /hpf Microbiology - Last 24 Hours (Table) 06/10/18 18:16 Urine Culture - Preliminary Urine,Voided Thrombosis Risk Factor Assmnt - Choose All That Apply Any of the Below Risk Factors Present?: Yes Each Factor Represents 1 point: Obesity (BMI >25) Other Risk Factors: No Other congenital or acquired thrombophilia - If yes, enter type in comment: No Thrombosis Risk Factor Assessment Total Risk Factor Score: 1 Thrombosis Risk Factor Assessment Level: Low Risk Assessment and Plan Plan: #1 febrile illness with evidence of urinary tract infection. #2 sepsis, evidenced by leukocytosis white blood count was 13.4, tachycardia heart rate on presentation was 121. #3 underlying history of mitochondrial DNA depletion syndrome #4 underlying history of diabetes mellitus #5 underlying history of hypertension #6 underlying history of hyperlipidemia #7 underlying history of hypothyroidism #8 underlying history of lupus anticoagulant disorder maintained on Xarelto #9 underlying history of migraine headache At this time continue was current medications, consultation for Dr. Hansen was initiated Will follow closely For GI prophylaxis patient is on Pepcid for DVT prophylaxis patient is on Xarelto
[2018-06-11 12:26] LABS: Basophils % (A) 0 %; Eosinophils # (A) 0.1 k/uL (0-0.7); Eosinophils % (A) 2 %; HCT 31.2 % (34.0-46.0); HGB 10.4 gm/dL (11.4-16.0); Lymphocytes # (A) 1.3 k/uL (1.0-4.8); Lymphocytes % (A) 18 %; MCH 28.6 pg (25.0-35.0); MCHC 33.5 g/dL (31.0-37.0); MCV 85.4 fL (80.0-100.0); Monocytes # (A) 0.5 k/uL (0-1.0); Monocytes % (A) 6 %; Neutrophils # (A) 5.3 k/uL (1.3-7.7); Neutrophils % (A) 73 %; Platelet Count 239 k/uL (150-450); RBC 3.65 m/uL (3.80-5.40); RDW 14.6 % (11.5-15.5); WBC 7.3 k/uL (3.8-10.6)
[2018-06-11 12:34] LABS: Glucose,Whole Blood 123 mg/dL (75-99)
[2018-06-11 12:41] LABS: ALT 32 U/L (9-52); AST 18 U/L (14-36); Albumin 3.1 g/dL (3.5-5.0); Alkaline Phosphatase 65 U/L (38-126); Anion Gap 7 mmol/L; Blood Urea Nitrogen 8 mg/dL (7-17); Calcium 8.7 mg/dL (8.4-10.2); Carbon Dioxide 21 mmol/L (22-30); Chloride 112 mmol/L (98-107); Glucose 103 mg/dL (74-99); Potassium 3.9 mmol/L (3.5-5.1); Sodium 140 mmol/L (137-145); Total Bilirubin 0.2 mg/dL (0.2-1.3); Total Protein 5.4 g/dL (6.3-8.2)
[2018-06-11 17:21] LABS: Glucose,Whole Blood 106 mg/dL (75-99)
[2018-06-11] MEDS: METOCLOPRAMIDE 10 MG TAB PO SCH (21:13)
[2018-06-11 21:27] LABS: Glucose,Whole Blood 125 mg/dL (75-99)
--- NOTE | 2018-06-11 22:48 | CONS ---
CONSULTATION DATE OF SERVICE: 06/11/2018. REASON FOR CONSULTATION: Fever. HISTORY OF PRESENT ILLNESS: The patient is a 37-year-old female with a past medical history significant for a recurrent urinary tract infection with an ESBL E coli. She has recently was admitted at this facility with outpatient culture positive for ESBL. However, the culture done at this hospitalization were negative. She was discharged on 05/30/2018 with no antibiotic therapy. The patient is now presented to the hospital with a fever of 101 degrees Fahrenheit earlier today. The patient said she did take some Tylenol. The patient also has been complaining of some pain in the right lower quadrant area, more of a dull aching pain about 3 to 5/10 and no radiation. The patient felt nauseated but no vomiting. However, did have 2 loose stools. With these symptoms, the patient has been evaluated by the ER physician. On arrival to the ER, the patient did have a low-grade fever of 100.1 degrees Fahrenheit. The patient white count was elevated at 13.4. The patient did have a UA that was currently negative, negative leukocyte esterases and rare bacteria. The patient did have a CT abdominal and pelvis completed which shows stable finding compared to the prior CT study with mild degree of liver steatosis. No free air or bowel obstruction. No cholelithiasis. The patient has been treated with Unasyn and infectious disease was consulted for further recommendation regarding antibiotic therapy. REVIEW OF SYSTEMS: CONSTITUTIONAL: Positive for weakness and low grade fever. Eyes no complaint. ENT no complaint. Respiratory no complaint. Cardiovascular no complaint. Genitourinary as per HPI. GASTROINTESTINAL: As per HPI. Musculoskeletal: No complaint. Integumentary no complaint. Psychological no complaint. Endocrine no complaint. Neurologic no complaint. PAST MEDICAL HISTORY: Significant for recurrent UTI infection with ESBL E coli, CVA, TIA, diabetes mellitus, DVT, hypothyroidism, dystonia and MRSA left arm infection. PAST SURGERY HISTORY: Uterine ablation, colonoscopy, EGD, PICC line placed. SOCIAL HISTORY: Denies smoking, drinking or drug use. FAMILY HISTORY: Mother with history of hypertension and diabetes mellitus. ALLERGIES: TO MULTIPLE MEDICATIONS INCLUDING KEFLEX, HOWEVER, THE PATIENT TOLERATED ROCEPHIN AND UNASYN WITHOUT ANY PROBLEM. MEDICATION: Currently include the patient is on Unasyn 3 g every 6 hours. She is on Tigan, Ultram, Topamax, Zanaflex, Senokot, Xarelto, Zofran, Narcan, morphine sulfate, Toprol-XL, Reglan, Cozaar, Claritin, Synthroid, Toradol, Levemir, NovoLog, Pepcid, vitamin B12. EXAMINATION: Blood pressure 108/54 with a pulse of 80, temperature 97.3, she is 96% on room air. General description is a middle aged female lying in bed in no distress. No tachypnea or accessory muscles of respiration use. HEENT: Shows slight pallor. No scleral icterus. Oral mucosa membranes are dry. No pharyngeal erythema or thrush. Neck trachea central. No thyromegaly. Lungs unlabored breathing. Clear to auscultation anteriorly. No wheeze or crackles. Heart S1, S2. Regular rate and rhythm. ABDOMEN: Soft, no tenderness. No guarding. No rigidity. No organomegaly. Extremities are no edema of the feet. Skin examination: No rash or mass palpable. Neurological: Patient is awake, alert, and oriented times three. Mood and affect normal. LABS: Hemoglobin 10.4, white count 7.3, admission white count 13.4, BUN of 8, creatinine 0.50. White count has been normal. Liver enzymes are normal. UA is negative, not significantly positive. CT abdominal and pelvis report as mentioned above. DIAGNOSTIC IMPRESSION AND PLAN: Patient admitted to the hospital with possible sepsis in a patient did have a fever of 101 degrees Fahrenheit, did have elevated white count and tachycardia. The patient who did have some vague right-sided abdominal pain. However, CT abdominal and pelvis has been negative. Urine is not significantly positive with negative leukocyte esterases with concern for possible abdominal source of this fever and sepsis and less likely Port-A-Cath infection that was recently placed on 04/28/[address] Mendez. PLAN: 1. Recommend obtaining blood cultures from the Port-A-Cath if not obtained, as well as follow the blood cultures that were drawn in the ER. 2. In view of the patient's fever responding to Unasyn, keep the patient on Unasyn 3 g every [address] Hansen will follow the patient as of tomorrow to which the patient is known. Thank you for this consultation. MMODL / IJN: [id number] /
[2018-06-12] MEDS: AMPICILLIN-SULBACTAM 3 GM in SODIUM CHLORIDE 0.9% 100 ML IVPB SCH ×4 (03:23→21:17)
[2018-06-12] MEDS: LEVOTHYROXINE 125 MCG TAB PO SCH (06:19)
[2018-06-12] MEDS: SODIUM CHLORIDE 0.9% 1,000 ML IV SCH ×3 (06:21→21:18)
[2018-06-12 07:11] LABS: Glucose,Whole Blood 123 mg/dL (75-99)
[2018-06-12 08:25] LABS: ALT 30 U/L (9-52); AST 21 U/L (14-36); Albumin 3.5 g/dL (3.5-5.0); Alkaline Phosphatase 73 U/L (38-126); Anion Gap 7 mmol/L; Blood Urea Nitrogen 5 mg/dL (7-17); Calcium 8.9 mg/dL (8.4-10.2); Carbon Dioxide 19 mmol/L (22-30); Chloride 115 mmol/L (98-107); Glucose 118 mg/dL (74-99); Sodium 141 mmol/L (137-145); Total Bilirubin 0.2 mg/dL (0.2-1.3); Total Protein 5.8 g/dL (6.3-8.2)
[2018-06-12 08:26] LABS: Basophils % (A) 0 %; Eosinophils # (A) 0.2 k/uL (0-0.7); Eosinophils % (A) 2 %; HCT 32.4 % (34.0-46.0); HGB 10.6 gm/dL (11.4-16.0); Lymphocytes # (A) 1.5 k/uL (1.0-4.8); Lymphocytes % (A) 22 %; MCH 28.3 pg (25.0-35.0); MCHC 32.8 g/dL (31.0-37.0); MCV 86.4 fL (80.0-100.0); Mean Platelet Volume 6.7; Monocytes # (A) 0.5 k/uL (0-1.0); Monocytes % (A) 8 %; Neutrophils # (A) 4.7 k/uL (1.3-7.7); Neutrophils % (A) 66 %; Platelet Count 253 k/uL (150-450); RBC 3.75 m/uL (3.80-5.40); RDW 14.9 % (11.5-15.5); WBC 7.1 k/uL (3.8-10.6)
[2018-06-12] MEDS: INSULIN ASPART 100 UNIT/ML 1 ML 10 ML VIAL SQ SCH ×4 (09:51→21:17)
--- NOTE | 2018-06-12 10:25 | P.PN ---
Subjective Progress Note Date: 06/12/18 Patient is a 37-year-old female who presented to [facility] emergency room with a chief complaint of fever and generalized malaise she was evaluated in the emergency room she had mild leukocytosis and evidence of urinary tract infection she was started on IV antibiotic and was admitted to medical floor. Patient has a known history of mitochondrial DNA depletion syndrome, and has recurrent urinary tract infections, she is followed as outpatient by Dr. Hansen. Patient had multiple urinary tract infections this year, her urine culture was positive in the past for E. coli and Klebsiella pneumonia including positive culture for ESBL. Urine culture was done in the emergency room and she was started on IV Unasyn. On 06/12/2018. Patient currently resting comfortably in bed with no complaints at this time. Denies any urinary symptoms. Denies nausea vomiting diarrhea denies chest pain or shortness breath. CT of the abdomen and pelvis completed emergency room showing stable findings as compared with the prior CT study with a mild degree of liver steatosis. No free air bowel traction, no cholelithiasis. Dr. Fullered covering for infectious disease. Recommendation for obtaining blood cultures from Port-A-Cath as well as blood cultures and continue Unasyn every 6 hours. Objective - Vital Signs Vital signs: Vital Signs Temp 98.4 F 06/12/18 07:00 Pulse 69 06/12/18 07:00 Resp 17 06/12/18 07:00 BP 109/70 06/12/18 07:00 Pulse Ox 99 06/12/18 07:00 Intake & Output 06/11/18 06/12/18 06/12/18 18:59 06:59 18:59 Intake Total 1100 Balance 1100 Weight 108.862 kg Intake: Oral 1100 Other: # Voids 2 2 - Exam Head normocephalic Neck supple Lungs clear to auscultation bilaterally no wheezing or crackles Heart regular rate and rhythm S1-S2, no rub or gallop Abdomen is soft nontender nondistended positive bowel sounds no hepatosplenomegaly Extremities no edema Neuro alert and orientated to 3 - Labs CBC & Chem 7: 06/12/18 07:50 06/12/18 07:50 Labs: Abnormal Lab Results - Last 24 Hours (Table) 06/11/18 06/11/18 06/11/18 Range/Units 12:15 12:15 12:33 RBC 3.65 L (3.80-5.40) m/uL Hgb 10.4 L (11.4-16.0) gm/dL Hct 31.2 L (34.0-46.0) % Chloride 112 H (98-107) mmol/L Carbon Dioxide 21 L (22-30) mmol/L BUN (7-17) mg/dL Creatinine 0.50 L (0.52-1.04) mg/dL Glucose 103 H (74-99) mg/dL POC Glucose (mg/dL) 123 H (75-99) mg/dL Total Protein 5.4 L (6.3-8.2) g/dL Albumin 3.1 L (3.5-5.0) g/dL 06/11/18 06/11/18 06/12/18 Range/Units 17:18 21:23 07:10 RBC (3.80-5.40) m/uL Hgb (11.4-16.0) gm/dL Hct (34.0-46.0) % Chloride (98-107) mmol/L Carbon Dioxide (22-30) mmol/L BUN (7-17) mg/dL Creatinine (0.52-1.04) mg/dL Glucose (74-99) mg/dL POC Glucose (mg/dL) 106 H 125 H 123 H (75-99) mg/dL Total Protein (6.3-8.2) g/dL Albumin (3.5-5.0) g/dL 06/12/18 06/12/18 Range/Units 07:50 07:50 RBC 3.75 L (3.80-5.40) m/uL Hgb 10.6 L (11.4-16.0) gm/dL Hct 32.4 L (34.0-46.0) % Chloride 115 H (98-107) mmol/L Carbon Dioxide 19 L (22-30) mmol/L BUN 5 L (7-17) mg/dL Creatinine 0.51 L (0.52-1.04) mg/dL Glucose 118 H (74-99) mg/dL POC Glucose (mg/dL) (75-99) mg/dL Total Protein 5.8 L (6.3-8.2) g/dL Albumin (3.5-5.0) g/dL Microbiology - Last 24 Hours (Table) 06/10/18 18:16 Urine Culture - Final Urine,Voided 06/10/18 18:08 Blood Culture - Preliminary Blood No Growth after 24 hours Assessment and Plan Assessment: #1 febrile illness with evidence of urinary tract infection. Patient has remained afebrile throughout night. Infectious disease blood and urine cultures have been ordered,consider Port-A-Cath cultures. Unasyn 3 g every 6 hours for antibiotic coverage at this time. Infectious disease has been consulted #2 sepsis, evidenced by leukocytosis white blood count was 13.4, tachycardia heart rate on presentation was 121. Heart rate improving down to baseline. WBC 7.1. 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 Patient currently on home regime Lantus 35 units along with sliding scale coverage #5 underlying history of hypertension. Continue patient's Kolesar and Toprol XL #6 underlying history of hyperlipidemia #7 underlying history of hypothyroidism. Continue Synthroid #8 underlying history of lupus anticoagulant disorder maintained on Xarelto #9 underlying history of migraine headache. Patient managed on Fiorcet, topamax and Zanaflex For GI prophylaxis patient is on Pepcid for DVT prophylaxis patient is on Xarelto I performed an examination of the patient and discussed their management with the Nurse Practitioner. I have reviewed the Nurse Practitioner's notes and agree with the documented findings and plan of care
[2018-06-12] MEDS: TOPIRAMATE 25 MG TAB PO SCH ×2 (10:56→21:16)
[2018-06-12] MEDS: LORATADINE 10 MG TAB PO SCH (10:57)
[2018-06-12] MEDS: FAMOTIDINE 20 MG TAB PO SCH ×2 (10:57→21:16)
[2018-06-12] MEDS: METOCLOPRAMIDE 10 MG TAB PO SCH ×4 (10:57→21:16)
[2018-06-12] MEDS: CYANOCOBALAMIN 500 MCG TAB PO SCH (10:59)
[2018-06-12] MEDS: SENNOSIDES 8.6 MG TAB PO SCH ×2 (11:00→21:18)
[2018-06-12] MEDS: METOPROLOL SUCCINATE (ER) 100 MG TAB.ER.24H PO SCH (11:00)
[2018-06-12] MEDS: LOSARTAN 50 MG TAB PO SCH (11:00)
[2018-06-12] MEDS: traMADol 50 MG TAB PO PRN (11:02)
[2018-06-12 11:56] LABS: Glucose,Whole Blood 133 mg/dL (75-99)
[2018-06-12] MEDS: ONDANSETRON 4 MG/2 ML VIAL IVP PRN (13:52)
[2018-06-12 17:26] LABS: Glucose,Whole Blood 93 mg/dL (75-99)
[2018-06-12 20:52] LABS: Glucose,Whole Blood 149 mg/dL (75-99)
[2018-06-12] MEDS: tiZANidine 4 MG TAB PO SCH (21:17)
[2018-06-12] MEDS: RIVAROXABAN 20 MG TAB PO SCH (21:17)
[2018-06-12] MEDS: INSULIN DETEMIR 100 UNIT/ML 10 ML VIAL SQ SCH (21:17)
--- NOTE | 2018-06-12 23:48 | P.PN ---
Subjective Progress Note Date: 06/12/18 37-year-old male presented to Hospital with symptoms of fever chills with some nausea and emesis and generalized malaise. She relates since coming to Hospital she is not feeling considerably better. They've not noted any significant fevers. Feels better this evening. She 100% of her meal. Objective - Vital Signs Vital signs: Vital Signs Temp 99.3 F 06/12/18 18:00 Pulse 75 06/12/18 18:00 Resp 16 06/12/18 23:41 BP 122/80 06/12/18 18:00 Pulse Ox 98 06/12/18 14:55 Intake & Output 06/12/18 06/12/18 06/13/18 06:59 18:59 06:59 Intake Total 1100 200 200 Balance 1100 200 200 Weight 108.862 kg Intake: Oral 1100 200 200 Other: # Voids 2 2 # Bowel Movements 0 - Exam 37-year-old woman with multiple medical troubles presented to hospital with fever not doing somewhat better. Is able to eat her meals without difficulties. HEENT: Anicteric conjunctiva are pink and moist nasal mucosa grossly intact without significant lesions, there is no thrush. Neck: The neck is supple without significant lymphadenopathy or thyromegaly. Lungs: Good bilateral air entry without significant crackles or wheezing. There is no significant bronchial sounds. There is no egophony or dullness. Heart: Regular rate and rhythm with an audible S1-S2, no S3 no S4. There is no significant murmur click or rub, PMI was nondisplaced. Abdomen: Obese, Positive bowel sounds soft with some chronic lower abdomen tenderness without palpable masses or organomegaly. There was no guarding or rebound. Does relate that she has minimal right flank tenderness on exam Extremities: The upper extremities have excellent pulses they are symmetric, no significant petechiae or telangiectasia. No splinter hemorrhages were noted. The lower extremities are free from significant edema. The peripheral pulses were 2+ and symmetric. Neuro: Awake alert oriented to person place and time. There are no acute new gross focal sensory motor deficits. - Labs CBC & Chem 7: 06/12/18 07:50 06/12/18 07:50 Labs: Abnormal Lab Results - Last 24 Hours (Table) 07/23/18 07/23/18 07/23/18 Range/Units 07:10 07:50 07:50 RBC 3.75 L (3.80-5.40) m/uL Hgb 10.6 L (11.4-16.0) gm/dL Hct 32.4 L (34.0-46.0) % Chloride 115 H (98-107) mmol/L Carbon Dioxide 19 L (22-30) mmol/L BUN 5 L (7-17) mg/dL Creatinine 0.51 L (0.52-1.04) mg/dL Glucose 118 H (74-99) mg/dL POC Glucose (mg/dL) 123 H (75-99) mg/dL Total Protein 5.8 L (6.3-8.2) g/dL 06/12/18 06/12/18 Range/Units 11:54 20:40 RBC (3.80-5.40) m/uL Hgb (11.4-16.0) gm/dL Hct (34.0-46.0) % Chloride (98-107) mmol/L Carbon Dioxide (22-30) mmol/L BUN (7-17) mg/dL Creatinine (0.52-1.04) mg/dL Glucose (74-99) mg/dL POC Glucose (mg/dL) 133 H 149 H (75-99) mg/dL Total Protein (6.3-8.2) g/dL Microbiology - Last 24 Hours (Table) 06/10/18 18:08 Blood Culture - Preliminary Blood No Growth after 48 hours 06/10/18 18:16 Urine Culture - Final Urine,Voided Laboratory Results WBC 7.1 k/uL (3.8-10.6) 06/12/18 07:50 RBC 3.75 m/uL (3.80-5.40) L 06/12/18 07:50 Hgb 10.6 gm/dL (11.4-16.0) L 06/12/18 07:50 Hct 32.4 % (34.0-46.0) L 06/12/18 07:50 MCV 86.4 fL (80.0-100.0) 06/12/18 07:50 MCH 28.3 pg (25.0-35.0) 06/12/18 07:50 MCHC 32.8 g/dL (31.0-37.0) 06/12/18 07:50 RDW 14.9 % (11.5-15.5) 06/12/18 07:50 Plt Count 253 k/uL (150-450) 06/12/18 07:50 Neutrophils % 66 % 06/12/18 07:50 Lymphocytes % 22 % 06/12/18 07:50 Monocytes % 8 % 06/12/18 07:50 Eosinophils % 2 % 06/12/18 07:50 Basophils % 0 % 06/12/18 07:50 Neutrophils # 4.7 k/uL (1.3-7.7) 06/12/18 07:50 Lymphocytes # 1.5 k/uL (1.0-4.8) 06/12/18 07:50 Monocytes # 0.5 k/uL (0-1.0) 06/12/18 07:50 Eosinophils # 0.2 k/uL (0-0.7) 06/12/18 07:50 Basophils # 0.0 k/uL (0-0.2) 06/12/18 07:50 Sodium 141 mmol/L (137-145) 06/12/18 07:50 Potassium 4.0 mmol/L (3.5-5.1) 06/12/18 07:50 Chloride 115 mmol/L (98-107) H 06/12/18 07:50 Carbon Dioxide 19 mmol/L (22-30) L 06/12/18 07:50 Anion Gap 7 mmol/L 06/12/18 07:50 BUN 5 mg/dL (7-17) L 06/12/18 07:50 Creatinine 0.51 mg/dL (0.52-1.04) L 06/12/18 07:50 Est GFR (CKD-EPI)AfAm >90 (>60 ml/min/1.73 sqM) 06/12/18 07:50 Est GFR (CKD-EPI)NonAf >90 (>60 ml/min/1.73 sqM) 06/12/18 07:50 Glucose 118 mg/dL (74-99) H 06/12/18 07:50 POC Glucose (mg/dL) 149 mg/dL (75-99) H 06/12/18 20:40 POC Glu [employer] Machine Operator ID Jessie Jerilyn 06/12/18 20:40 Lactic Ac Sepsis Rflx Y 06/10/18 18:39 Plasma Lactic Acid Joce 1.1 mmol/L (0.7-2.0) 06/10/18 22:44 Calcium 8.9 mg/dL (8.4-10.2) 06/12/18 07:50 Total Bilirubin 0.2 mg/dL (0.2-1.3) 06/12/18 07:50 AST 21 U/L (14-36) 06/12/18 07:50 ALT 30 U/L (9-52) 06/12/18 07:50 Alkaline Phosphatase 73 U/L (38-126) 06/12/18 07:50 Total Protein 5.8 g/dL (6.3-8.2) L 06/12/18 07:50 Albumin 3.5 g/dL (3.5-5.0) 06/12/18 07:50 Amylase 46 U/L (30-110) 06/10/18 18:08 Lipase 71 U/L (23-300) 06/10/18 18:08 Urine Color Yellow 06/10/18 18:16 Urine Appearance Cloudy (Clear) H 06/10/18 18:16 Urine pH 5.0 (5.0-8.0) 06/10/18 18:16 Ur Specific [place] 1.026 (1.001-1.035) 06/10/18 18:16 Urine Protein 1+ (Negative) H 06/10/18 18:16 Urine Glucose (UA) Negative (Negative) 06/10/18 18:16 Urine Ketones 1+ (Negative) H 06/10/18 18:16 Urine Blood Negative (Negative) 06/10/18 18:16 Urine Nitrite Negative (Negative) 06/10/18 18:16 Urine Bilirubin Negative (Negative) 06/10/18 18:16 Urine Urobilinogen 2.0 mg/dL (<2.0) 06/10/18 18:16 Ur Leukocyte Esterase Negative (Negative) 06/10/18 18:16 Urine RBC 3 /hpf (0-5) 06/10/18 18:16 Urine WBC 2 /hpf (0-5) 06/10/18 18:16 Ur Squamous Epith Cells 7 /hpf (0-4) H 06/10/18 18:16 Urine Bacteria Rare /hpf (None) H 06/10/18 18:16 Hyaline Casts 13 /lpf (0-2) H 06/10/18 18:16 Urine Mucus Few /hpf (None) H 06/10/18 18:16 Microbiology 06/11/18 18:45 Blood Blood Culture - Preliminary No Growth after 24 hours 06/10/18 18:08 Blood Blood Culture - Preliminary No Growth after 48 hours 06/10/18 18:16 Urine,Voided Urine Culture - Final Assessment and Plan (1) Fever Narrative/Plan: 37 showing presents to Hospital feeling poorly with fever at home with his with nausea and emesis. Does have a port in place the right anterior chest wall is of her lack of IV access. To date the cultures are all negative. Her fever has resolved. Nausea and emesis have resolved. 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 She does have limited access to antiemetics at home that are affected.. Not able to get Zofran easily at home. Fortunately with hydration and treatments she is now doing considerably better. With negative cultures specifically negative blood cultures not be plans on home IV antibiotic therapy. 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
[2018-06-13] MEDS: AMPICILLIN-SULBACTAM 3 GM in SODIUM CHLORIDE 0.9% 100 ML IVPB SCH ×4 (02:17→22:00)
[2018-06-13] MEDS: LEVOTHYROXINE 125 MCG TAB PO SCH (06:59)
[2018-06-13 07:09] LABS: Glucose,Whole Blood 121 mg/dL (75-99)
[2018-06-13] MEDS: INSULIN ASPART 100 UNIT/ML 1 ML 10 ML VIAL SQ SCH ×4 (07:37→21:58)
[2018-06-13] MEDS: FAMOTIDINE 20 MG TAB PO SCH ×2 (08:12→21:57)
[2018-06-13] MEDS: LORATADINE 10 MG TAB PO SCH (08:12)
[2018-06-13] MEDS: METOCLOPRAMIDE 10 MG TAB PO SCH ×4 (08:12→22:00)
[2018-06-13] MEDS: CYANOCOBALAMIN 500 MCG TAB PO SCH (08:12)
[2018-06-13] MEDS: LOSARTAN 50 MG TAB PO SCH (08:13)
[2018-06-13] MEDS: TOPIRAMATE 25 MG TAB PO SCH ×2 (08:13→21:57)
[2018-06-13] MEDS: METOPROLOL SUCCINATE (ER) 100 MG TAB.ER.24H PO SCH (08:13)
[2018-06-13] MEDS: SODIUM CHLORIDE 0.9% 1,000 ML IV SCH ×2 (08:13→15:13)
[2018-06-13] MEDS: ONDANSETRON 4 MG/2 ML VIAL IVP PRN (08:21)
[2018-06-13 09:47] LABS: ALT 34 U/L (9-52); AST 20 U/L (14-36); Albumin 3.8 g/dL (3.5-5.0); Alkaline Phosphatase 78 U/L (38-126); Anion Gap 12 mmol/L; Blood Urea Nitrogen 5 mg/dL (7-17); Calcium 9.3 mg/dL (8.4-10.2); Carbon Dioxide 16 mmol/L (22-30); Chloride 113 mmol/L (98-107); Glucose 145 mg/dL (74-99); Potassium 4.2 mmol/L (3.5-5.1); Sodium 141 mmol/L (137-145); Total Bilirubin 0.2 mg/dL (0.2-1.3); Total Protein 6.1 g/dL (6.3-8.2)
[2018-06-13 10:35] LABS: Basophils % (A) 0 %; Eosinophils # (A) 0.2 k/uL (0-0.7); Eosinophils % (A) 2 %; HCT 34.5 % (34.0-46.0); HGB 11.5 gm/dL (11.4-16.0); Lymphocytes # (A) 1.7 k/uL (1.0-4.8); Lymphocytes % (A) 19 %; MCH 28.7 pg (25.0-35.0); MCHC 33.4 g/dL (31.0-37.0); Mean Platelet Volume 7.2; Monocytes # (A) 0.5 k/uL (0-1.0); Monocytes % (A) 6 %; Neutrophils # (A) 6.7 k/uL (1.3-7.7); Neutrophils % (A) 72 %; Platelet Count 299 k/uL (150-450); RBC 4.01 m/uL (3.80-5.40); WBC 9.3 k/uL (3.8-10.6)
--- NOTE | 2018-06-13 12:07 | P.PN ---
Subjective Progress Note Date: 06/13/18 Patient is a 37-year-old female who presented to [facility] emergency room with a chief complaint of fever and generalized malaise she was evaluated in the emergency room she had mild leukocytosis and evidence of urinary tract infection she was started on IV antibiotic and was admitted to medical floor. Patient has a known history of mitochondrial DNA depletion syndrome, and has recurrent urinary tract infections, she is followed as outpatient by Dr. Hansen. Patient had multiple urinary tract infections this year, her urine culture was positive in the past for E. coli and Klebsiella pneumonia including positive culture for ESBL. Urine culture was done in the emergency room and she was started on IV Unasyn. On 06/12/2018. Patient currently resting comfortably in bed with no complaints at this time. Denies any urinary symptoms. Denies nausea vomiting diarrhea denies chest pain or shortness breath. CT of the abdomen and pelvis completed emergency room showing stable findings as compared with the prior CT study with a mild degree of liver steatosis. No free air bowel traction, no cholelithiasis. Dr. Llanes covering for infectious disease. Recommendation for obtaining blood cultures from Port-A-Cath as well as blood cultures and continue Unasyn every 6 hours. On 06/13/2018. Patient currently resting comfortably in bed with no complaints at this time. Dr. Hansen covering for Infectious disease. patient remains afebrile. White Blood Cell 9.3. Remains on Unasyn IV antibiotics. Patient denies chest pain or shortness breath. Denies nausea, diarrhea. Denies any urinary symptoms at this time. Objective - Vital Signs Vital signs: Vital Signs Temp 98.0 F 06/13/18 07:00 Pulse 70 06/13/18 07:00 Resp 18 06/13/18 07:00 BP 130/77 06/13/18 07:00 Pulse Ox 98 06/13/18 07:00 Intake & Output 06/12/18 06/13/18 06/13/18 18:59 06:59 18:59 Intake Total 200 500 Balance 200 500 Intake: Oral 200 500 Other: # Voids 2 2 # Bowel Movements 0 - Exam Head normocephalic Neck supple Lungs clear to auscultation bilaterally no wheezing or crackles Heart regular rate and rhythm S1-S2, no rub or gallop Abdomen is soft nontender nondistended positive bowel sounds no hepatosplenomegaly Extremities no edema Neuro alert and orientated to 3 - Labs CBC & Chem 7: 06/13/18 08:56 06/13/18 08:56 Labs: Abnormal Lab Results - Last 24 Hours (Table) 06/12/18 06/12/18 06/13/18 Range/Units 11:54 20:40 07:06 Chloride (98-107) mmol/L Carbon Dioxide (22-30) mmol/L BUN (7-17) mg/dL Glucose (74-99) mg/dL POC Glucose (mg/dL) 133 H 149 H 121 H (75-99) mg/dL Total Protein (6.3-8.2) g/dL 06/13/18 Range/Units 08:56 Chloride 113 H (98-107) mmol/L Carbon Dioxide 16 L (22-30) mmol/L BUN 5 L (7-17) mg/dL Glucose 145 H (74-99) mg/dL POC Glucose (mg/dL) (75-99) mg/dL Total Protein 6.1 L (6.3-8.2) g/dL Microbiology - Last 24 Hours (Table) 06/11/18 18:45 Blood Culture - Preliminary Blood No Growth after 24 hours 06/10/18 18:08 Blood Culture - Preliminary Blood No Growth after 48 hours Assessment and Plan Assessment: #1 febrile illness with evidence of urinary tract infection. Patient has remained afebrile throughout night. Infectious disease blood and urine cultures have been ordered,consider Port-A-Cath cultures. Unasyn 3 g every 6 hours for antibiotic coverage at this time. Infectious disease has been consulted. Per Dr. Hansen if negative blood cultures plans for patient to be sent home without IV antibiotic therapy. Blood and urine cultures currently negative. #2 sepsis, evidenced by leukocytosis white blood count was 13.4, tachycardia heart rate on presentation was 121. Heart rate improving down to baseline. WBC 7.1. 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 Patient currently on home regime Lantus 35 units along with sliding scale coverage #5 underlying history of hypertension. Continue patient's Cozaar and Toprol XL #6 underlying history of hyperlipidemia #7 underlying history of hypothyroidism. Continue Synthroid #8 underlying history of lupus anticoagulant disorder maintained on Xarelto #9 underlying history of migraine headache. Patient managed on Fiorcet, topamax and Zanaflex For GI prophylaxis patient is on Pepcid for DVT prophylaxis patient is on Xarelto I performed an examination of the patient and discussed their management with the Nurse Practitioner. I have reviewed the Nurse Practitioner's notes and agree with the documented findings and plan of care
[2018-06-13] MEDS: SENNOSIDES 8.6 MG TAB PO SCH ×2 (12:25→23:02)
[2018-06-13 12:31] LABS: Glucose,Whole Blood 144 mg/dL (75-99)
[2018-06-13 17:16] LABS: Glucose,Whole Blood 128 mg/dL (75-99)
[2018-06-13] MEDS ORDERED: MORPHINE ORAL SOLN 10 MG/5 ML CUP PO PRN (20:39)
[2018-06-13 20:55] LABS: Glucose,Whole Blood 131 mg/dL (75-99)
--- NOTE | 2018-06-13 21:21 | P.PN ---
Subjective Progress Note Date: 06/13/18 37-year-old male presented to Hospital with symptoms of fever chills with some nausea and emesis and generalized malaise. She relates since coming to Hospital she is not feeling considerably better. They've not noted any significant fevers. Feels better this evening. She 100% of her meal. 06/13/2018 She is feeling considerably better today. She is denying significant abdominal pain. Nausea is under good control. He will eat her meals. Denies fevers or chills. Flank pain is stable no new urine symptoms. Objective - Vital Signs Vital signs: Vital Signs Temp 99.7 F H 06/13/18 17:00 Pulse 75 06/13/18 17:00 Resp 17 06/13/18 17:00 BP 123/76 06/13/18 17:00 Pulse Ox 95 06/13/18 17:00 Intake & Output 06/13/18 06/13/18 06/14/18 06:59 18:59 06:59 Intake Total 500 Balance 500 Intake: Oral 500 Other: # Voids 2 2 # Bowel Movements 0 - Exam 37-year-old woman with multiple medical troubles presented to hospital with fever not doing somewhat better. Is able to eat her meals without difficulties. HEENT: Anicteric conjunctiva are pink and moist nasal mucosa grossly intact without significant lesions, there is no thrush. Neck: The neck is supple without significant lymphadenopathy or thyromegaly. Lungs: Good bilateral air entry without significant crackles or wheezing. There is no significant bronchial sounds. There is no egophony or dullness. Heart: Regular rate and rhythm with an audible S1-S2, no S3 no S4. There is no significant murmur click or rub, PMI was nondisplaced. Abdomen: Obese, Positive bowel sounds soft with some chronic lower abdomen tenderness without palpable masses or organomegaly. There was no guarding or rebound. Does relate that she has minimal right flank tenderness on exam Extremities: The upper extremities have excellent pulses they are symmetric, no significant petechiae or telangiectasia. No splinter hemorrhages were noted. The lower extremities are free from significant edema. The peripheral pulses were 2+ and symmetric. Neuro: Awake alert oriented to person place and time. There are no acute new gross focal sensory motor deficits. - Labs CBC & Chem 7: 06/13/18 08:56 06/13/18 08:56 Labs: Abnormal Lab Results - Last 24 Hours (Table) 06/13/18 06/13/18 06/13/18 Range/Units 07:06 08:56 12:20 Chloride 113 H (98-107) mmol/L Carbon Dioxide 16 L (22-30) mmol/L BUN 5 L (7-17) mg/dL Glucose 145 H (74-99) mg/dL POC Glucose (mg/dL) 121 H 144 H (75-99) mg/dL Total Protein 6.1 L (6.3-8.2) g/dL 06/13/18 06/13/18 Range/Units 16:59 20:51 Chloride (98-107) mmol/L Carbon Dioxide (22-30) mmol/L BUN (7-17) mg/dL Glucose (74-99) mg/dL POC Glucose (mg/dL) 128 H 131 H (75-99) mg/dL Total Protein (6.3-8.2) g/dL Microbiology - Last 24 Hours (Table) 06/10/18 18:08 Blood Culture - Preliminary Blood No Growth after 72 hours 06/11/18 18:45 Blood Culture - Preliminary Blood No Growth after 24 hours Laboratory Results WBC 9.3 k/uL (3.8-10.6) 06/13/18 08:56 RBC 4.01 m/uL (3.80-5.40) 06/13/18 08:56 Hgb 11.5 gm/dL (11.4-16.0) 06/13/18 08:56 Hct 34.5 % (34.0-46.0) 06/13/18 08:56 MCV 86.0 fL (80.0-100.0) 06/13/18 08:56 MCH 28.7 pg (25.0-35.0) 06/13/18 08:56 MCHC 33.4 g/dL (31.0-37.0) 06/13/18 08:56 RDW 15.0 % (11.5-15.5) 06/13/18 08:56 Plt Count 299 k/uL (150-450) 06/13/18 08:56 Neutrophils % 72 % 06/13/18 08:56 Lymphocytes % 19 % 06/13/18 08:56 Monocytes % 6 % 06/13/18 08:56 Eosinophils % 2 % 06/13/18 08:56 Basophils % 0 % 06/13/18 08:56 Neutrophils # 6.7 k/uL (1.3-7.7) 06/13/18 08:56 Lymphocytes # 1.7 k/uL (1.0-4.8) 06/13/18 08:56 Monocytes # 0.5 k/uL (0-1.0) 06/13/18 08:56 Eosinophils # 0.2 k/uL (0-0.7) 06/13/18 08:56 Basophils # 0.0 k/uL (0-0.2) 06/13/18 08:56 Sodium 141 mmol/L (137-145) 06/13/18 08:56 Potassium 4.2 mmol/L (3.5-5.1) 06/13/18 08:56 Chloride 113 mmol/L (98-107) H 06/13/18 08:56 Carbon Dioxide 16 mmol/L (22-30) L 06/13/18 08:56 Anion Gap 12 mmol/L 06/13/18 08:56 BUN 5 mg/dL (7-17) L 06/13/18 08:56 Creatinine 0.55 mg/dL (0.52-1.04) 06/13/18 08:56 Est GFR (CKD-EPI)AfAm >90 (>60 ml/min/1.73 sqM) 06/13/18 08:56 Est GFR (CKD-EPI)NonAf >90 (>60 ml/min/1.73 sqM) 06/13/18 08:56 Glucose 145 mg/dL (74-99) H 06/13/18 08:56 POC Glucose (mg/dL) 131 mg/dL (75-99) H 06/13/18 20:51 POC Glu [place] Weaver ID Evon Brian 06/13/18 20:51 Lactic Ac Sepsis Rflx Y 06/10/18 18:39 Plasma Lactic Acid Joce 1.1 mmol/L (0.7-2.0) 06/10/18 22:44 Calcium 9.3 mg/dL (8.4-10.2) 06/13/18 08:56 Total Bilirubin 0.2 mg/dL (0.2-1.3) 06/13/18 08:56 AST 20 U/L (14-36) 06/13/18 08:56 ALT 34 U/L (9-52) 06/13/18 08:56 Alkaline Phosphatase 78 U/L (38-126) 06/13/18 08:56 Total Protein 6.1 g/dL (6.3-8.2) L 06/13/18 08:56 Albumin 3.8 g/dL (3.5-5.0) 06/13/18 08:56 Amylase 46 U/L (30-110) 06/10/18 18:08 Lipase 71 U/L (23-300) 06/10/18 18:08 Urine Color Yellow 06/10/18 18:16 Urine Appearance Cloudy (Clear) H 06/10/18 18:16 Urine pH 5.0 (5.0-8.0) 06/10/18 18:16 Ur Specific [place] 1.026 (1.001-1.035) 06/10/18 18:16 Urine Protein 1+ (Negative) H 06/10/18 18:16 Urine Glucose (UA) Negative (Negative) 06/10/18 18:16 Urine Ketones 1+ (Negative) H 06/10/18 18:16 Urine Blood Negative (Negative) 06/10/18 18:16 Urine Nitrite Negative (Negative) 06/10/18 18:16 Urine Bilirubin Negative (Negative) 06/10/18 18:16 Urine Urobilinogen 2.0 mg/dL (<2.0) 06/10/18 18:16 Ur Leukocyte Esterase Negative (Negative) 06/10/18 18:16 Urine RBC 3 /hpf (0-5) 06/10/18 18:16 Urine WBC 2 /hpf (0-5) 06/10/18 18:16 Ur Squamous Epith Cells 7 /hpf (0-4) H 06/10/18 18:16 Urine Bacteria Rare /hpf (None) H 06/10/18 18:16 Hyaline Casts 13 /lpf (0-2) H 06/10/18 18:16 Urine Mucus Few /hpf (None) H 06/10/18 18:16 Microbiology 06/10/18 18:08 Blood Blood Culture - Preliminary No Growth after 72 hours 06/11/18 18:45 Blood Blood Culture - Preliminary No Growth after 24 hours 06/10/18 18:16 Urine,Voided Urine Culture - Final Assessment and Plan (1) Fever Narrative/Plan: 37 showing presents to Hospital feeling poorly with fever at home with his with nausea and emesis. Does have a port in place the right anterior chest wall is of her lack of IV access. To date the cultures are all negative. Her fever has resolved. Nausea and emesis have resolved. 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 She does have limited access to antiemetics at home that are affected.. Not able to get Zofran easily at home. Fortunately with hydration and treatments she is now doing considerably better. With negative cultures specifically negative blood cultures not be plans on home IV antibiotic therapy. 06/13/2018 patient is doing better at this point in time. Evidence of negative blood and urine cultures at this time. If blood culture is negative in the morning she was ambulatory be discharged home on no antibiotic therapy. She does not have evidence of urinary tract infection. Progressively is not able to get Zofran at home and has recurrent difficulties with nausea and emesis. Would request if the primary physician will be able to work with the insurance agency with a [id number] request to see if she can at least get some Zofran at home which may help prevent recurrent hospitalizations. 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
[2018-06-13] MEDS: tiZANidine 4 MG TAB PO SCH (21:57)
[2018-06-13] MEDS: RIVAROXABAN 20 MG TAB PO SCH (21:57)
[2018-06-13] MEDS: INSULIN DETEMIR 100 UNIT/ML 10 ML VIAL SQ SCH (21:58)
[2018-06-13] MEDS: traMADol 50 MG TAB PO PRN (23:01)
[2018-06-13 23:11] VITALS: RESP 16
[2018-06-14] MEDS: AMPICILLIN-SULBACTAM 3 GM in SODIUM CHLORIDE 0.9% 100 ML IVPB SCH ×3 (04:32→15:17)
[2018-06-14] MEDS: SODIUM CHLORIDE 0.9% 1,000 ML IV SCH ×2 (04:33→08:12)
[2018-06-14 06:16] VITALS: BP 108/71; PULSE 87; TEMP 97.8
[2018-06-14] MEDS: LEVOTHYROXINE 125 MCG TAB PO SCH (06:26)
[2018-06-14] MEDS: INSULIN ASPART 100 UNIT/ML 1 ML 10 ML VIAL SQ SCH ×2 (07:12→12:02)
[2018-06-14 07:19] LABS: Glucose,Whole Blood 120 mg/dL (75-99)
[2018-06-14] MEDS: METOCLOPRAMIDE 10 MG TAB PO SCH ×2 (08:12→12:26)
[2018-06-14] MEDS: FAMOTIDINE 20 MG TAB PO SCH (08:13)
[2018-06-14] MEDS: CYANOCOBALAMIN 500 MCG TAB PO SCH (08:13)
[2018-06-14] MEDS: LORATADINE 10 MG TAB PO SCH (08:14)
[2018-06-14] MEDS: TOPIRAMATE 25 MG TAB PO SCH (08:14)
[2018-06-14] MEDS: METOPROLOL SUCCINATE (ER) 100 MG TAB.ER.24H PO SCH (08:14)
[2018-06-14] MEDS: LOSARTAN 50 MG TAB PO SCH (08:14)
[2018-06-14] MEDS: traMADol 50 MG TAB PO PRN (08:17)
[2018-06-14] MEDS: ONDANSETRON 4 MG/2 ML VIAL IVP PRN (08:26)
[2018-06-14 10:11] LABS: ALT 34 U/L (9-52); AST 18 U/L (14-36); Albumin 3.5 g/dL (3.5-5.0); Alkaline Phosphatase 70 U/L (38-126); Anion Gap 12 mmol/L; Blood Urea Nitrogen 8 mg/dL (7-17); Carbon Dioxide 15 mmol/L (22-30); Chloride 111 mmol/L (98-107); Glucose 194 mg/dL (74-99); Sodium 138 mmol/L (137-145); Total Bilirubin 0.2 mg/dL (0.2-1.3); Total Protein 5.9 g/dL (6.3-8.2)
[2018-06-14 10:28] LABS: Basophils % (A) 1 %; Eosinophils # (A) 0.1 k/uL (0-0.7); Eosinophils % (A) 2 %; HCT 34.1 % (34.0-46.0); HGB 11.3 gm/dL (11.4-16.0); Lymphocytes # (A) 1.4 k/uL (1.0-4.8); Lymphocytes % (A) 20 %; MCH 28.7 pg (25.0-35.0); Mean Platelet Volume 6.6; Monocytes # (A) 0.3 k/uL (0-1.0); Monocytes % (A) 4 %; Neutrophils # (A) 5.1 k/uL (1.3-7.7); Neutrophils % (A) 71 %; Platelet Count 276 k/uL (150-450); RBC 3.92 m/uL (3.80-5.40); RDW 15.4 % (11.5-15.5); WBC 7.1 k/uL (3.8-10.6)
[2018-06-14] MEDS: SENNOSIDES 8.6 MG TAB PO SCH (11:34)
[2018-06-14 12:12] LABS: Glucose,Whole Blood 125 mg/dL (75-99)
--- NOTE | 2018-06-14 13:59 | P.DS ---
Providers Date of admission: 06/10/18 21:01 Expected date of discharge: 06/14/18 Attending physician: Maryellen Joel Consults: 06/10/18 20:41 Consult Physician Stat Consulting Provider: Jerson Hansen Consult Reason/Comments: fever, rule out bacteremia Do you want consulting provider notified?: Yes Primary care physician: Maryellen Joel [facility] Course: Discharge diagnosis #1 febrile illness with evidence of urinary tract infection. Patient has remained afebrile throughout night. Infectious disease blood and urine cultures have been ordered,consider Port-A-Cath cultures. Unasyn 3 g every 6 hours for antibiotic coverage at this time. Infectious disease has been consulted. Per Dr. Hansen if negative blood cultures plans for patient to be sent home without IV antibiotic therapy. Blood and urine cultures currently negative. Blood culture has remained negative. Per Dr. Hansen she may be discharged home on no antibiotic therapy, requesting that primary care physician work with insurance agency with a peer to peer request seems patient can get Zofran at home which will prevent recurrent hospitalizations. #2 sepsis, evidenced by leukocytosis white blood count was 13.4, tachycardia heart rate on presentation was 121. Heart rate improving down to baseline. WBC 7.1. 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 Patient currently on home regime Lantus 35 units along with sliding scale coverage #5 underlying history of hypertension. Continue patient's Cozaar and Toprol XL #6 underlying history of hyperlipidemia #7 underlying history of hypothyroidism. Continue Synthroid #8 underlying history of lupus anticoagulant disorder maintained on Xarelto #9 underlying history of migraine headache. Patient managed on Fiorcet, topamax and Zanaflex Patient to follow-up with primary care provider Dr. Joel on Tuesday Hospital course Patient is a 37-year-old female who presented to [facility] emergency room with a chief complaint of fever and generalized malaise she was evaluated in the emergency room she had mild leukocytosis and evidence of urinary tract infection she was started on IV antibiotic and was admitted to medical floor. Patient has a known history of mitochondrial DNA depletion syndrome, and has recurrent urinary tract infections, she is followed as outpatient by Dr. Hansen. Patient had multiple urinary tract infections this year, her urine culture was positive in the past for E. coli and Klebsiella pneumonia including positive culture for ESBL. Urine culture was done in the emergency room and she was started on IV Unasyn. On 06/12/2018. Patient currently resting comfortably in bed with no complaints at this time. Denies any urinary symptoms. Denies nausea vomiting diarrhea denies chest pain or shortness breath. CT of the abdomen and pelvis completed emergency room showing stable findings as compared with the prior CT study with a mild degree of liver steatosis. No free air bowel traction, no cholelithiasis. Dr. Llanes covering for infectious disease. Recommendation for obtaining blood cultures from Port-A-Cath as well as blood cultures and continue Unasyn every 6 hours. On 06/13/2018. Patient currently resting comfortably in bed with no complaints at this time. Dr. Tyrone haney for Infectious disease. patient remains afebrile. White Blood Cell 9.3. Remains on Unasyn IV antibiotics. Patient denies chest pain or shortness breath. Denies nausea, diarrhea. Denies any urinary symptoms at this time. On 06/14/2018 patient is resting comfortably bed with no platelets time. Per Dr. Hansen patient be discharged home without antibiotics. Blood culture showing no growth. White blood cell 7.1. She denies chest pain or shortness breath this time. Denies nausea vomiting or diarrhea. Denies any urinary symptoms. Patient followed closely with Dr. Joel. I performed an examination of the patient and discussed their management with the Nurse Practitioner. I have reviewed the Nurse Practitioner's notes and agree with the documented findings and plan of care Patient Condition at Discharge: Good Plan - Discharge Summary Discharge Rx Participant: No New Discharge Prescriptions: Continue tiZANidine [Zanaflex] 8 mg PO HS Rivaroxaban [Xarelto] 20 mg PO DAILY Metoclopramide [Reglan] 10 mg PO ACHS Trimethobenzamide HCl [Tigan] 300 mg PO TID PRN PRN Reason: Nausea Metoprolol Succinate (ER) [Toprol XL] 100 mg PO DAILY Ranitidine HCl 150 mg PO BID Losartan [Cozaar] 50 mg PO DAILY Insulin Glargine [Lantus] 35 unit SQ HS Topiramate [Topamax] 75 mg PO BID Ondansetron [Zofran ODT] 8 mg PO Q8H PRN PRN Reason: Nausea Sennosides [Senna] 8.6 mg PO Q12H Levothyroxine Sodium 250 mcg PO DAILY Loratadine [Claritin] 10 mg PO DAILY Insulin Lispro [humaLOG Kwikpen] See Protocol SQ ACHS Cyanocobalamin (Vitamin B-12) [Vitamin B-12] 2,000 mcg PO DAILY tiZANidine [Zanaflex] 2 mg PO DAILY 3 Days #3 tab Butalb/APAP/Caff 50-325-40Mg [Fioricet 50-325-40] 1 tab PO Q8H PRN PRN Reason: Migraine Headache Discharge Medication List Rivaroxaban [Xarelto] 20 mg PO DAILY 03/09/17 [History] tiZANidine [Zanaflex] 8 mg PO HS 03/09/17 [History] Metoclopramide [Reglan] 10 mg PO ACHS 07/29/17 [History] Trimethobenzamide HCl [Tigan] 300 mg PO TID PRN 09/25/17 [History] Metoprolol Succinate (ER) [Toprol XL] 100 mg PO DAILY 10/24/17 [History] Ranitidine HCl 150 mg PO BID 12/17/17 [History] Insulin Glargine [Lantus] 35 unit SQ HS 03/15/18 [History] Losartan [Cozaar] 50 mg PO DAILY 03/15/18 [History] Cyanocobalamin (Vitamin B-12) [Vitamin B-12] 2,000 mcg PO DAILY 05/23/18 [ History] Insulin Lispro [humaLOG Kwikpen] See Protocol SQ ACHS 05/23/18 [History] Levothyroxine Sodium 250 mcg PO DAILY 05/23/18 [History] Loratadine [Claritin] 10 mg PO DAILY 05/23/18 [History] Ondansetron [Zofran ODT] 8 mg PO Q8H PRN 05/23/18 [History] Sennosides [Senna] 8.6 mg PO Q12H 05/23/18 [History] Topiramate [Topamax] 75 mg PO BID 05/23/18 [History] tiZANidine [Zanaflex] 2 mg PO DAILY 3 Days #3 tab 05/30/18 [Rx] Butalb/APAP/Caff 50-325-40Mg [Fioricet 50-325-40] 1 tab PO Q8H PRN 06/11/18 [ History] Follow up Appointment(s)/Referral(s): [facility], [NON-STAFF] - Maryellen Joel MD [Primary Care Provider] - 1-2 days Jerson Hansen MD [STAFF PHYSICIAN] - 1 Week Activity/Diet/Wound Care/Special Instructions: Diet consistent carb Activity as tolerated Discharge Disposition: HOME SELF-CARE
== END 2018-06-14 15:11 | disposition home or self-care (01) | DRG 872 ==
LOC: EC 16:48 → 4MS4W 21:01
PROVIDERS: ADMIT Internal Medicine; ATTEND Internal Medicine
DX: A41.9 Sepsis, unspecified organism (principal); D68.62 Lupus anticoagulant syndrome; N39.0 Urinary tract infection, site not specified; E88.49 Other mitochondrial metabolism disorders; E03.9 Hypothyroidism, unspecified; E11.40 Type 2 diabetes mellitus with diabetic neuropathy, unspecified; Z79.4 Long term (current) use of insulin; E28.2 Polycystic ovarian syndrome; E78.5 Hyperlipidemia, unspecified; F32.9 Major depressive disorder, single episode, unspecified; G47.419 Narcolepsy without cataplexy; I10 Essential (primary) hypertension; Z79.01 Long term (current) use of anticoagulants; Z82.49 Family history of ischemic heart disease and other diseases of the circulatory system; Z83.3 Family history of diabetes mellitus; Z86.73 Personal history of transient ischemic attack (TIA), and cerebral infarction without residual deficits; Z87.440 Personal history of urinary (tract) infections; Z91.5 Personal history of self-harm; G43.409 Hemiplegic migraine, not intractable, without status migrainosus; Z88.1 Allergy status to other antibiotic agents; Z88.2 Allergy status to sulfonamides; Z88.7 Allergy status to serum and vaccine; Z88.8 Allergy status to other drugs, medicaments and biological substances; Z79.890 Hormone replacement therapy; Z79.899 Other long term (current) drug therapy; Z86.718 Personal history of other venous thrombosis and embolism; E06.3 Autoimmune thyroiditis; D35.2 Benign neoplasm of pituitary gland; Z83.2 Family history of diseases of the blood and blood-forming organs and certain disorders involving the immune mechanism; Z86.14 Personal history of Methicillin resistant Staphylococcus aureus infection; K31.84 Gastroparesis; Z91.81 History of falling; I95.1 Orthostatic hypotension; R10.9 Unspecified abdominal pain
CPT/HCPCS: 36415; 74177; 80053; 81001; 82150; 83605; 83690; 85025; 87040; 87086; 93005; 96361; 96365; 96375; 99285

== ENCOUNTER 2018-06-19 07:38 | Emergency (ER) | payer MEDICARE, OTHER ==
[2018-06-19] MEDS ORDERED: SODIUM CHLORIDE 0.9% 1,000 ML IV STA (07:52)
--- NOTE | 2018-06-19 07:57 | ED ---
General Adult HPI - General Chief complaint: Abdominal Pain Stated complaint: poss sepsis Time Seen by Provider: 06/19/18 07:45 Source: patient, RN notes reviewed Mode of arrival: wheelchair Limitations: no limitations - History of Present Illness Initial comments: Patient's a 37-year-old female presenting to the emergency room today with a chief complaint of urinary tract infection. Patient has had multiple urinary tract infections in the past. She states that she's been off antibiotics for approximately 3 weeks. She does admit that she was admitted recently a week ago for fevers of unknown origin but all cultures came back negative and was released. Patient states that she noticed some symptoms of dysuria starting 2 days ago increasing yesterday and through the night. Does admit to increased frequency. States burning sensation on urination. Doesn't some right pain lower back. She states all symptoms consistent with urinary tract infections that she's had in the past. Does admit to some low-grade fevers at home. Has not taken anything for fever this morning. Does admit that she had an episode of nausea vomiting. She did take her blood pressure medication but states unsure if it stayed down. Patient denies any other complaints or symptoms at this time. Patient denies any recent fever, chills, shortness of breath, chest pain, nausea or vomiting, numbness or tingling, constipation or diarrhea, headaches or visual changes, or any other complaints. - Related Data Home Medications Medication Instructions Recorded Confirmed Rivaroxaban [Xarelto] 20 mg PO DAILY 03/09/17 06/19/18 tiZANidine [Zanaflex] 8 mg PO HS 03/09/17 06/19/18 Metoclopramide [Reglan] 10 mg PO ACHS 07/29/17 06/19/18 Trimethobenzamide HCl [Tigan] 300 mg PO TID PRN 09/25/17 06/19/18 Metoprolol Succinate (ER) [Toprol 100 mg PO DAILY 10/24/17 06/19/18 XL] Ranitidine HCl 150 mg PO BID 12/17/17 06/19/18 Insulin Glargine [Lantus] 35 unit SQ HS 03/15/18 06/19/18 Losartan [Cozaar] 50 mg PO DAILY 03/15/18 06/19/18 Cyanocobalamin (Vitamin B-12) 2,000 mcg PO DAILY 05/23/18 06/19/18 [Vitamin B-12] Insulin Lispro [humaLOG Kwikpen] See Protocol SQ ACHS 05/23/18 06/19/18 Levothyroxine Sodium 250 mcg PO DAILY 05/23/18 06/19/18 Loratadine [Claritin] 10 mg PO DAILY 05/23/18 06/19/18 Ondansetron [Zofran ODT] 8 mg PO Q6H PRN 05/23/18 06/19/18 Topiramate [Topamax] 75 mg PO BID 05/23/18 06/19/18 Butalb/APAP/Caff 50-325-40Mg 1 tab PO Q8H PRN 06/11/18 06/19/18 [Fioricet 50-325-40] traMADol HCL [Ultram] 50 mg PO Q8H PRN 06/19/18 06/19/18 Previous Rx's Medication Instructions Recorded tiZANidine [Zanaflex] 2 mg PO DAILY 3 Days #3 tab 05/30/18 Nitrofurantoin Monohyd/M-Cryst 100 mg PO Q12HR #14 cap 06/19/18 [Macrobid] Allergies Allergy/AdvReac Type Severity Reaction Status Date / Time barium sulfate Allergy Anaphylaxis Verified 06/19/18 08:22 diphtheria, pertussis, Allergy Unknown Verified 06/19/18 08:22 tetanus vacc doxepin [Doxepin] Allergy Anaphylaxis Verified 06/19/18 08:22 ephedrine Allergy Unknown Verified 06/19/18 08:22 ertapenem [From Invanz] Allergy Rash/Hives Verified 06/19/18 08:22 influenza virus vaccine, Allergy Anaphylaxis Verified 06/19/18 08:22 specific [Influenza Virus Vacc,Specific] promethazine HCl Allergy Anaphylaxis Verified 06/19/18 08:22 [From Phenergan] doxycycline AdvReac Nausea & Verified 06/19/18 08:22 Vomiting & Diarrhea Pertussis Vaccines AdvReac fever/seizu Verified 06/19/18 08:22 re pseudoephedrine AdvReac Chest Pain Verified 06/19/18 08:22 pseudoephedrine HCl AdvReac Chest Pain Verified 06/19/18 08:22 [From Sudafed] sulfamethoxazole AdvReac Nausea & Verified 06/19/18 08:22 [From Bactrim] Vomiting trimethoprim [From Bactrim] AdvReac Nausea & Verified 06/19/18 08:22 Vomiting Review of Systems ROS Statement: Those systems with pertinent positive or pertinent negative responses have been documented in the HPI. ROS Other: All systems not noted in ROS Statement are negative. Past Medical History Past Medical History: Chest Pain / Angina, CVA/TIA, Diabetes Mellitus, Deep Vein Thrombosis (DVT), Neurologic Disorder, Syncope, Thyroid Disorder Additional Past Medical History / Comment(s): "STROKE LIKE EPISODE D/T MITOCHRONDIAL DISEASE HAD WORK UP DONE AT [facility]. WEARS A BRACE ON LT ANKLE AND LT WRIST".Dysautonomia-progressive neurological disorder, lupus/LUPUS ANTICOAGULANTS, 2004 CVA without residual, ana maria's disease, lymphedema Lt arm d/t DVTs , v-tach, pituitary microadenoma. "mitochondrial disease". patent foramen ovale, narcolepsy, gastropareis, IDDM type II, uti's, falls, orthostatic hypotension/syncope,migraines with hemiplegia, pernicious anemia, polycystic ovarian syndrome, neuropathy bilateral legs/fee-mild, uterine ablation August 2015/patient no longer has periods-had uterine ablation uti's. , midline access for fluids-current access issues has contacted dr quigley. History of Any Multi-Drug Resistant Organisms: ESBL, MRSA Date of last positivie culture/infection: 03/09/17 MRSA/ 05/17/18 ESBL MDRO Source:: MRSA LEFT ARM,/ESBL URINE ECOLI Past Surgical History: Ablation, Uterine Ablation Additional Past Surgical History / Comment(s): colonscopy/egd, angie, stress test. PORT-A -CATH INSERTION 04-28-18 Past Anesthesia/Blood Transfusion Reactions: No Reported Reaction Additional Past Anesthesia/Blood Transfusion Reaction / Comment(s): patient states "It takes a lot of anesthesia for my body to react". Pt has received blood in past without reaction. Past Psychological History: Bipolar, Depression Smoking Status: Never smoker Past Alcohol Use History: None Reported Past Drug Use History: None Reported - Past Family History Brother(s) Family Medical History: Diabetes Mellitus, Hyperlipidemia, Hypertension Additional Family Medical History / Comment(s): Patient states she has 1 brother with no major medical problems. Father Family Medical History: Diabetes Mellitus, Hyperlipidemia, Hypertension Additional Family Medical History / Comment(s): DAD IS 70 YEARS OLD. Patient states she does not have any contact with her father and does not know his medical history. Mother Family Medical History: Blood Disorder, Chest Pain / Angina, CVA/TIA, Hyperlipidemia, Hypertension Additional Family Medical History / Comment(s): AGE 62 HAS LUPUS, blood pressure swings high to low, antiphospholipid antibody syndrome General Exam - General Exam Comments Initial Comments: General: The patient is awake and alert, in no distress, and does not appear acutely ill. Eye: Pupils are equal, round and reactive to light, extra-ocular movements are intact. No nystagmus. There is normal conjunctiva bilaterally. No signs of icterus. Ears, nose, mouth and throat: There are moist mucous membranes and no oral lesions. Neck: The neck is supple, there is no tenderness or JVD. Cardiovascular: There is a regular rate and rhythm. No murmur, rub or gallop is appreciated. Respiratory: Lungs are clear to auscultation, respirations are non-labored, breath sounds are equal. No wheezes, stridor, rales, or rhonchi. Gastrointestinal: Soft, non-distended, non-tender abdomen without masses or organomegaly noted. There is no rebound or guarding present. No CVA tenderness. Musculoskeletal: Normal ROM, no tenderness. Strength 5/5. Sensation intact. Pulses equal bilaterally 2+. Neurological: A&O x 3. CN II-XII intact, There are no obvious motor or sensory deficits. Coordination appears grossly intact. Speech is normal. Skin: Skin is warm and dry and no rashes or lesions are noted. Psychiatric: Cooperative, appropriate mood & affect, normal judgment. Limitations: no limitations Course Vital Signs 06/19/18 06/19/18 06/19/18 07:42 07:57 09:14 Temperature 99.4 F 100.6 F H Pulse Rate 112 H 108 H 100 Respiratory 18 17 17 Rate Blood Pressure 166/110 179/117 145/89 O2 Sat by Pulse 98 97 97 Oximetry Medical Decision Making - Medical Decision Making Patient's labs been reviewed. Patient's blood pressure was elevated at triage. She was unable to tell blood pressure medications. Blood pressure much improved at this time. Patient resting comfortably. Patient will be started on antibiotics cover for possible UTI cultures are pending. Patient given dose or Rocephin here in emergency room will be discharged home on Macrobid. - Lab Data Result diagrams: 06/19/18 08:10 06/19/18 08:10 Lab Results 06/19/18 06/19/18 06/19/18 Range/Units 08:10 08:10 08:10 WBC 9.1 (3.8-10.6) k/uL RBC 4.36 (3.80-5.40) m/uL Hgb 12.3 (11.4-16.0) gm/dL Hct 37.7 (34.0-46.0) % MCV 86.3 (80.0-100.0) fL MCH 28.3 (25.0-35.0) pg MCHC 32.8 (31.0-37.0) g/dL RDW 14.8 (11.5-15.5) % Plt Count 359 (150-450) k/uL Neutrophils % 76 % Lymphocytes % 15 % Monocytes % 5 % Eosinophils % 2 % Basophils % 0 % Neutrophils # 6.9 (1.3-7.7) k/uL Lymphocytes # 1.4 (1.0-4.8) k/uL Monocytes # 0.5 (0-1.0) k/uL Eosinophils # 0.2 (0-0.7) k/uL Basophils # 0.0 (0-0.2) k/uL Sodium (137-145) mmol/L Potassium (3.5-5.1) mmol/L Chloride (98-107) mmol/L Carbon Dioxide (22-30) mmol/L Anion Gap mmol/L BUN (7-17) mg/dL Creatinine (0.52-1.04) mg/dL Est GFR (CKD-EPI)AfAm (>60 ml/min/1.73 sqM) Est GFR (CKD-EPI)NonAf (>60 ml/min/1.73 sqM) Glucose (74-99) mg/dL Calcium (8.4-10.2) mg/dL Total Bilirubin (0.2-1.3) mg/dL AST (14-36) U/L ALT (9-52) U/L Alkaline Phosphatase (38-126) U/L Total Protein (6.3-8.2) g/dL Albumin (3.5-5.0) g/dL Urine Color Brown Urine Appearance Cloudy H (Clear) Urine pH 5.5 (5.0-8.0) Ur Specific [place] 1.027 (1.001-1.035) Urine Protein 1+ H (Negative) Urine Glucose (UA) Trace H (Negative) Urine Ketones Trace H (Negative) Urine Blood Negative (Negative) Urine Nitrite Negative (Negative) Urine Bilirubin Negative (Negative) Urine Urobilinogen 2.0 (<2.0) mg/dL Ur Leukocyte Esterase Negative (Negative) Urine WBC 5 (0-5) /hpf Ur Squamous Epith Cells 7 H (0-4) /hpf Urine Bacteria Rare H (None) /hpf Hyaline Casts 19 H (0-2) /lpf Urine Mucus Moderate H (None) /hpf Urine HCG, Qual Not Detected (Not Detectd) 06/19/18 Range/Units 08:10 WBC (3.8-10.6) k/uL RBC (3.80-5.40) m/uL Hgb (11.4-16.0) gm/dL Hct (34.0-46.0) % MCV (80.0-100.0) fL MCH (25.0-35.0) pg MCHC (31.0-37.0) g/dL RDW (11.5-15.5) % Plt Count (150-450) k/uL Neutrophils % % Lymphocytes % % Monocytes % % Eosinophils % % Basophils % % Neutrophils # (1.3-7.7) k/uL Lymphocytes # (1.0-4.8) k/uL Monocytes # (0-1.0) k/uL Eosinophils # (0-0.7) k/uL Basophils # (0-0.2) k/uL Sodium 143 (137-145) mmol/L Potassium 4.1 (3.5-5.1) mmol/L Chloride 114 H (98-107) mmol/L Carbon Dioxide 15 L (22-30) mmol/L Anion Gap 14 mmol/L BUN 12 (7-17) mg/dL Creatinine 0.61 (0.52-1.04) mg/dL Est GFR (CKD-EPI)AfAm >90 (>60 ml/min/1.73 sqM) Est GFR (CKD-EPI)NonAf >90 (>60 ml/min/1.73 sqM) Glucose 217 H (74-99) mg/dL Calcium 9.6 (8.4-10.2) mg/dL Total Bilirubin 0.3 (0.2-1.3) mg/dL AST 22 (14-36) U/L ALT 22 (9-52) U/L Alkaline Phosphatase 95 (38-126) U/L Total Protein 6.8 (6.3-8.2) g/dL Albumin 4.3 (3.5-5.0) g/dL Urine Color Urine Appearance (Clear) Urine pH (5.0-8.0) Ur Specific [place] (1.001-1.035) Urine Protein (Negative) Urine Glucose (UA) (Negative) Urine Ketones (Negative) Urine Blood (Negative) Urine Nitrite (Negative) Urine Bilirubin (Negative) Urine Urobilinogen (<2.0) mg/dL Ur Leukocyte Esterase (Negative) Urine WBC (0-5) /hpf Ur Squamous Epith Cells (0-4) /hpf Urine Bacteria (None) /hpf Hyaline Casts (0-2) /lpf Urine Mucus (None) /hpf Urine HCG, Qual (Not Detectd) Disposition Clinical Impression: Cystitis Disposition: HOME SELF-CARE Condition: Good Instructions: Urinary Tract Infection in Women (ED) Additional Instructions: Please use medication as discussed. Please follow-up with family doctor in the next 2 days of symptoms have not improved. Please return to emergency room if the symptoms increase or worsen or for any other concerns. Prescriptions: Nitrofurantoin Monohyd/M-Cryst [Macrobid] 100 mg PO Q12HR #14 cap Is patient prescribed a controlled substance at d/c from ED?: No Referrals: Maryellen Joel MD [Primary Care Provider] - 1-2 days Time of Disposition: 09:28
[2018-06-19 07:59] VITALS: RESP 17
[2018-06-19 08:40] LABS: Basophils % (A) 0 %; Eosinophils # (A) 0.2 k/uL (0-0.7); Eosinophils % (A) 2 %; HCT 37.7 % (34.0-46.0); HGB 12.3 gm/dL (11.4-16.0); Lymphocytes # (A) 1.4 k/uL (1.0-4.8); Lymphocytes % (A) 15 %; MCH 28.3 pg (25.0-35.0); MCHC 32.8 g/dL (31.0-37.0); MCV 86.3 fL (80.0-100.0); Monocytes # (A) 0.5 k/uL (0-1.0); Monocytes % (A) 5 %; Neutrophils # (A) 6.9 k/uL (1.3-7.7); Neutrophils % (A) 76 %; Platelet Count 359 k/uL (150-450); RBC 4.36 m/uL (3.80-5.40); RDW 14.8 % (11.5-15.5); WBC 9.1 k/uL (3.8-10.6)
[2018-06-19] MEDS ORDERED: LABETALOL 5 MG/ML VIAL MDV IVP STA (08:40)
[2018-06-19 08:50] LABS: Appearance,Urine Cloudy (Clear); Bacteria,Urine Rare /hpf; Bilirubin,Urine Negative (Negative); Blood,Urine Negative (Negative); Color,Urine Brown; Glucose,Urine (UA) Trace (Negative); Hyaline Casts,Urine 19 /lpf (0-2); Ketones,Urine Trace (Negative); Leukocyte Esterase,Urine Negative (Negative); Mucus,Urine Moderate /hpf; Nitrite,Urine Negative (Negative); PH, Urine 5.5 (5.0-8.0); Protein,Urine 1+ (Negative); Specific Gravity,Urine 1.027 (1.001-1.035); Squamous Epithelial Cell,Urine 7 /hpf (0-4); WBC,Urine 5 /hpf (0-5)
[2018-06-19 08:53] LABS: ALT 22 U/L (9-52); AST 22 U/L (14-36); Albumin 4.3 g/dL (3.5-5.0); Alkaline Phosphatase 95 U/L (38-126); Anion Gap 14 mmol/L; Blood Urea Nitrogen 12 mg/dL (7-17); Calcium 9.6 mg/dL (8.4-10.2); Carbon Dioxide 15 mmol/L (22-30); Chloride 114 mmol/L (98-107); Glucose 217 mg/dL (74-99); Potassium 4.1 mmol/L (3.5-5.1); Sodium 143 mmol/L (137-145); Total Bilirubin 0.3 mg/dL (0.2-1.3); Total Protein 6.8 g/dL (6.3-8.2)
[2018-06-19] MEDS ORDERED: cefTRIAXone IN SWFI 1,000 MG/10 ML SYRINGE IVP STA (09:24)
[2018-06-19 09:40] VITALS: BP 143/94; PULSE 93; TEMP 99.3
== END 2018-06-19 09:41 | disposition home or self-care (01) ==
LOC: EC 07:38
DX: N30.90 Cystitis, unspecified without hematuria (principal); I10 Essential (primary) hypertension; E11.43 Type 2 diabetes mellitus with diabetic autonomic (poly)neuropathy; K31.84 Gastroparesis; E06.3 Autoimmune thyroiditis; Z79.4 Long term (current) use of insulin; Z79.01 Long term (current) use of anticoagulants; Z79.899 Other long term (current) drug therapy; Z88.1 Allergy status to other antibiotic agents; Z88.7 Allergy status to serum and vaccine; Z88.8 Allergy status to other drugs, medicaments and biological substances; Z91.041 Radiographic dye allergy status; Z86.14 Personal history of Methicillin resistant Staphylococcus aureus infection; Z86.69 Personal history of other diseases of the nervous system and sense organs; Z86.79 Personal history of other diseases of the circulatory system; Z86.718 Personal history of other venous thrombosis and embolism; Z86.73 Personal history of transient ischemic attack (TIA), and cerebral infarction without residual deficits; Z82.49 Family history of ischemic heart disease and other diseases of the circulatory system
CPT/HCPCS: 36415; 80053; 85025; 81001; 81025; 87040; 87086; 99284; 96374; 96375; 96361; J0696

== ENCOUNTER 2018-06-30 18:16 | Emergency (ER) | payer MEDICARE, OTHER ==
[2018-06-30 19:02] VITALS: RESP 18
[2018-06-30] MEDS ORDERED: SODIUM CHLORIDE 0.9% 1,000 ML IV STA (20:40)
[2018-06-30 20:42] LABS: Appearance,Urine Clear (Clear); Bilirubin,Urine Negative (Negative); Blood,Urine Negative (Negative); Color,Urine Yellow; Glucose,Urine (UA) Trace (Negative); Hyaline Casts,Urine 1 /lpf (0-2); Ketones,Urine 1+ (Negative); Leukocyte Esterase,Urine Trace (Negative); Mucus,Urine Rare /hpf; Nitrite,Urine Negative (Negative); PH, Urine 5.5 (5.0-8.0); Protein,Urine 1+ (Negative); RBC,Urine 4 /hpf (0-5); Specific Gravity,Urine 1.025 (1.001-1.035); Squamous Epithelial Cell,Urine 3 /hpf (0-4); WBC,Urine 8 /hpf (0-5)
[2018-06-30] MEDS ORDERED: ACETAMINOPHEN TAB 500 MG TAB PO STA (20:46)
[2018-06-30] MEDS ORDERED: KETOROLAC 30 MG/ML 1 ML VIAL IVP STA (20:46)
[2018-06-30] MEDS ORDERED: ONDANSETRON 4 MG/2 ML VIAL IVP STA (20:46)
--- NOTE | 2018-06-30 20:48 | ED ---
Female Urogenital HPI - General Chief complaint: Urogenital Stated complaint: UTI Time Seen by Provider: 06/30/18 20:25 Source: patient Mode of arrival: ambulatory Limitations: no limitations - History of Present Illness Initial comments: 37-year-old female patient presents the emergency department today with multiple complaints. Patient states she feels like she has a urinary tract infection with dysuria, bladder spasms, right flank pain, and nausea. Denies any hematuria with this. Patient states she is also having right upper quadrant abdominal pain and tenderness. States that she does have history of gallbladder issues and thinks that may be acting up. Patient states that she has been unable to eat or drink. States she has been having low-grade fevers for the last several weeks and they are unable to figure out a cause. She denies any chest pain or shortness of breath. Patient denies any recent rash, diarrhea, constipation, back pain, numbness, tingling, dizziness, weakness, headache, visual changes, or any other complaints. - Related Data Home Medications Medication Instructions Recorded Confirmed Rivaroxaban [Xarelto] 20 mg PO DAILY 03/09/17 06/19/18 tiZANidine [Zanaflex] 8 mg PO HS 03/09/17 06/19/18 Metoclopramide [Reglan] 10 mg PO [facility] 07/29/17 06/19/18 Trimethobenzamide HCl [Tigan] 300 mg PO TID PRN 09/25/17 06/19/18 Metoprolol Succinate (ER) [Toprol 100 mg PO DAILY 10/24/17 06/19/18 XL] Ranitidine HCl 150 mg PO BID 12/17/17 06/19/18 Insulin Glargine [Lantus] 35 unit SQ HS 03/15/18 06/19/18 Losartan [Cozaar] 50 mg PO DAILY 03/15/18 06/19/18 Cyanocobalamin (Vitamin B-12) 2,000 mcg PO DAILY 05/23/18 06/19/18 [Vitamin B-12] Insulin Lispro [humaLOG Kwikpen] See Protocol SQ [facility] 05/23/18 06/19/18 Levothyroxine Sodium 250 mcg PO DAILY 05/23/18 06/19/18 Loratadine [Claritin] 10 mg PO DAILY 05/23/18 06/19/18 Ondansetron [Zofran ODT] 8 mg PO Q6H PRN 05/23/18 06/19/18 Topiramate [Topamax] 75 mg PO BID 05/23/18 06/19/18 Butalb/APAP/Caff 50-325-40Mg 1 tab PO Q8H PRN 06/11/18 06/19/18 [Fioricet 50-325-40] traMADol HCL [Ultram] 50 mg PO Q8H PRN 06/19/18 06/19/18 Previous Rx's Medication Instructions Recorded tiZANidine [Zanaflex] 2 mg PO DAILY 3 Days #3 tab 05/30/18 Nitrofurantoin Monohyd/M-Cryst 100 mg PO Q12HR #14 cap 06/19/18 [Macrobid] Allergies Allergy/AdvReac Type Severity Reaction Status Date / Time barium sulfate Allergy Anaphylaxis Verified 06/30/18 19:02 diphtheria, pertussis, Allergy Unknown Verified 06/30/18 19:02 tetanus vacc doxepin [Doxepin] Allergy Anaphylaxis Verified 06/30/18 19:02 ephedrine Allergy Unknown Verified 06/30/18 19:02 ertapenem [From Invanz] Allergy Rash/Hives Verified 06/30/18 19:02 influenza virus vaccine, Allergy Anaphylaxis Verified 06/30/18 19:02 specific [Influenza Virus Vacc,Specific] promethazine HCl Allergy Anaphylaxis Verified 06/30/18 19:02 [From Phenergan] doxycycline AdvReac Nausea & Verified 06/30/18 19:02 Vomiting & Diarrhea Pertussis Vaccines AdvReac fever/seizu Verified 06/30/18 19:02 re pseudoephedrine AdvReac Chest Pain Verified 06/30/18 19:02 pseudoephedrine HCl AdvReac Chest Pain Verified 06/30/18 19:02 [From Sudafed] sulfamethoxazole AdvReac Nausea & Verified 06/30/18 19:02 [From Bactrim] Vomiting trimethoprim [From Bactrim] AdvReac Nausea & Verified 06/30/18 19:02 Vomiting Review of Systems ROS Statement: Those systems with pertinent positive or pertinent negative responses have been documented in the HPI. ROS Other: All systems not noted in ROS Statement are negative. Past Medical History Past Medical History: Chest Pain / Angina, CVA/TIA, Diabetes Mellitus, Deep Vein Thrombosis (DVT), Neurologic Disorder, Syncope, Thyroid Disorder Additional Past Medical History / Comment(s): "STROKE LIKE EPISODE D/T MITOCHRONDIAL DISEASE HAD WORK UP DONE AT [facility]. WEARS A BRACE ON LT ANKLE AND LT WRIST".Dysautonomia-progressive neurological disorder, lupus/LUPUS ANTICOAGULANTS, 2003 CVA without residual, ana maria's disease, lymphedema Lt arm d/t DVTs , v-tach, pituitary microadenoma. "mitochondrial disease". patent foramen ovale, narcolepsy, gastropareis, IDDM type II, uti's, falls, orthostatic hypotension/syncope,migraines with hemiplegia, pernicious anemia, polycystic ovarian syndrome, neuropathy bilateral legs/fee-mild, uterine ablation August 2015/patient no longer has periods-had uterine ablation uti's. , midline access for fluids-current access issues has contacted dr quigley. History of Any Multi-Drug Resistant Organisms: ESBL, MRSA Date of last positivie culture/infection: 03/09/17 MRSA/ 05/17/18 ESBL MDRO Source:: MRSA LEFT ARM,/ESBL URINE ECOLI Past Surgical History: Ablation, Uterine Ablation Additional Past Surgical History / Comment(s): colonscopy/egd, angie, stress test. PORT-A -CATH INSERTION 04-28-18 Past Anesthesia/Blood Transfusion Reactions: No Reported Reaction Additional Past Anesthesia/Blood Transfusion Reaction / Comment(s): patient states "It takes a lot of anesthesia for my body to react". Pt has received blood in past without reaction. Past Psychological History: Bipolar, Depression Smoking Status: Never smoker Past Alcohol Use History: None Reported Past Drug Use History: None Reported - Past Family History Brother(s) Family Medical History: Diabetes Mellitus, Hyperlipidemia, Hypertension Additional Family Medical History / Comment(s): Patient states she has 1 brother with no major medical problems. Father Family Medical History: Diabetes Mellitus, Hyperlipidemia, Hypertension Additional Family Medical History / Comment(s): DAD IS 70 YEARS OLD. Patient states she does not have any contact with her father and does not know his medical history. Mother Family Medical History: Blood Disorder, Chest Pain / Angina, CVA/TIA, Hyperlipidemia, Hypertension Additional Family Medical History / Comment(s): AGE 62 HAS LUPUS, blood pressure swings high to low, antiphospholipid antibody syndrome General Exam Limitations: no limitations General appearance: alert, in no apparent distress, other (This is a well- developed, well-nourished adult female patient in no acute distress. Vital signs upon presentation are temperature 99.7F, pulse 139, respirations 18, blood pressure 144/91, pulse ox 97% on room air.) Eye exam: Present: normal appearance, PERRL, EOMI. Absent: scleral icterus, conjunctival injection, periorbital swelling ENT exam: Present: normal exam, normal oropharynx, mucous membranes moist Respiratory exam: Present: normal lung sounds bilaterally. Absent: respiratory distress, wheezes, rales, rhonchi, stridor Cardiovascular Exam: Present: normal rhythm, tachycardia, normal heart sounds. Absent: systolic murmur, diastolic murmur, rubs, gallop, clicks GI/Abdominal exam: Present: soft, tenderness (Suprapubic tenderness. Right upper quadrant tenderness.), normal bowel sounds. Absent: distended, guarding, rebound, rigid Neurological exam: Present: alert, oriented X3, CN II-XII intact Psychiatric exam: Present: normal affect, normal mood Skin exam: Present: warm, dry, intact, normal color. Absent: rash Course Vital Signs 06/30/18 06/30/18 07/01/18 18:58 23:35 01:19 Temperature 99.7 F H 98.5 F Pulse Rate 139 H 113 H 108 H Respiratory 18 18 18 Rate Blood Pressure 144/91 139/89 140/90 O2 Sat by Pulse 97 96 97 Oximetry Medical Decision Making - Medical Decision Making 37-year-old female patient presents the emergency department today for evaluation of right upper quadrant abdominal pain and concerns for urinary tract infection. Physical examination did reveal some right upper quadrant tenderness. Labs reviewed and are relatively unremarkable. No evidence of urinary tract infection. Patient did receive IV fluids and pain medication here in the department. Upon reevaluation she is feeling better. She does feel comfortable being discharged home at this time to follow-up with her primary care physician. Return parameters discussed in detail patient verbalizes understanding and agrees with this plan. - Lab Data Result diagrams: 06/30/18 22:05 06/30/18 22:05 Lab Results 06/30/18 06/30/18 06/30/18 Range/Units 20:25 20:25 22:05 WBC (3.8-10.6) k/uL RBC (3.80-5.40) m/uL Hgb (11.4-16.0) gm/dL Hct (34.0-46.0) % MCV (80.0-100.0) fL MCH (25.0-35.0) pg MCHC (31.0-37.0) g/dL RDW (11.5-15.5) % Plt Count (150-450) k/uL Neutrophils % % Lymphocytes % % Monocytes % % Eosinophils % % Basophils % % Neutrophils # (1.3-7.7) k/uL Lymphocytes # (1.0-4.8) k/uL Monocytes # (0-1.0) k/uL Eosinophils # (0-0.7) k/uL Basophils # (0-0.2) k/uL Sodium 141 (137-145) mmol/L Potassium 4.5 (3.5-5.1) mmol/L Chloride 108 H (98-107) mmol/L Carbon Dioxide 19 L (22-30) mmol/L Anion Gap 14 mmol/L BUN 13 (7-17) mg/dL Creatinine 0.60 (0.52-1.04) mg/dL Est GFR (CKD-EPI)AfAm >90 (>60 ml/min/1.73 sqM) Est GFR (CKD-EPI)NonAf >90 (>60 ml/min/1.73 sqM) Glucose 179 H (74-99) mg/dL Plasma Lactic Acid Jcoe (0.7-2.0) mmol/L Calcium 9.8 (8.4-10.2) mg/dL Total Bilirubin 0.2 (0.2-1.3) mg/dL AST 24 (14-36) U/L ALT 28 (9-52) U/L Alkaline Phosphatase 111 (38-126) U/L Total Protein 7.8 (6.3-8.2) g/dL Albumin 4.8 (3.5-5.0) g/dL Amylase 50 (30-110) U/L Lipase 91 (23-300) U/L Urine Color Yellow Urine Appearance Clear (Clear) Urine pH 5.5 (5.0-8.0) Ur Specific Julian 1.025 (1.001-1.035) Urine Protein 1+ H (Negative) Urine Glucose (UA) Trace H (Negative) Urine Ketones 1+ H (Negative) Urine Blood Negative (Negative) Urine Nitrite Negative (Negative) Urine Bilirubin Negative (Negative) Urine Urobilinogen 2.0 (<2.0) mg/dL Ur Leukocyte Esterase Trace H (Negative) Urine RBC 4 (0-5) /hpf Urine WBC 8 H (0-5) /hpf Ur Squamous Epith Cells 3 (0-4) /hpf Hyaline Casts 1 (0-2) /lpf Urine Mucus Rare H (None) /hpf Urine HCG, Qual Not Detected (Not Detectd) 06/30/18 06/30/18 Range/Units 22:05 22:05 WBC 10.0 (3.8-10.6) k/uL RBC 4.77 (3.80-5.40) m/uL Hgb 13.6 (11.4-16.0) gm/dL Hct 40.6 (34.0-46.0) % MCV 84.9 (80.0-100.0) fL MCH 28.4 (25.0-35.0) pg MCHC 33.5 (31.0-37.0) g/dL RDW 14.2 (11.5-15.5) % Plt Count 409 (150-450) k/uL Neutrophils % 72 % Lymphocytes % 21 % Monocytes % 5 % Eosinophils % 1 % Basophils % 0 % Neutrophils # 7.2 (1.3-7.7) k/uL Lymphocytes # 2.1 (1.0-4.8) k/uL Monocytes # 0.5 (0-1.0) k/uL Eosinophils # 0.1 (0-0.7) k/uL Basophils # 0.0 (0-0.2) k/uL Sodium (137-145) mmol/L Potassium (3.5-5.1) mmol/L Chloride (98-107) mmol/L Carbon Dioxide (22-30) mmol/L Anion Gap mmol/L BUN (7-17) mg/dL Creatinine (0.52-1.04) mg/dL Est GFR (CKD-EPI)AfAm (>60 ml/min/1.73 sqM) Est GFR (CKD-EPI)NonAf (>60 ml/min/1.73 sqM) Glucose (74-99) mg/dL Plasma Lactic Acid Joce 2.5 H* (0.7-2.0) mmol/L Calcium (8.4-10.2) mg/dL Total Bilirubin (0.2-1.3) mg/dL AST (14-36) U/L ALT (9-52) U/L Alkaline Phosphatase (38-126) U/L Total Protein (6.3-8.2) g/dL Albumin (3.5-5.0) g/dL Amylase (30-110) U/L Lipase (23-300) U/L Urine Color Urine Appearance (Clear) Urine pH (5.0-8.0) Ur Specific Julian (1.001-1.035) Urine Protein (Negative) Urine Glucose (UA) (Negative) Urine Ketones (Negative) Urine Blood (Negative) Urine Nitrite (Negative) Urine Bilirubin (Negative) Urine Urobilinogen (<2.0) mg/dL Ur Leukocyte Esterase (Negative) Urine RBC (0-5) /hpf Urine WBC (0-5) /hpf Ur Squamous Epith Cells (0-4) /hpf Hyaline Casts (0-2) /lpf Urine Mucus (None) /hpf Urine HCG, Qual (Not Detectd) - EKG Data -: EKG Interpreted by Me EKG Comments: EKG obtained at 1938 shows sinus tachycardia with ventricular rate of 124, OH interval 130, QRS duration 80, QT 316, QTC 453. No evidence of ST elevation or depression. Disposition Clinical Impression: Abdominal pain Disposition: HOME SELF-CARE Condition: Good Instructions: Abdominal Pain (ED) Additional Instructions: Increase fluids. Follow-up with your primary care physician for recheck in 1-2 days. Return here immediately for any new, worsening, or concerning symptoms. Is patient prescribed a controlled substance at d/c from ED?: No Referrals: Maryellen Joel MD [Primary Care Provider] - 1-2 days Time of Disposition: 00:54
[2018-06-30] MEDS ORDERED: MORPHINE SULFATE 4 MG/ML SYRINGE IM STA (22:10)
[2018-06-30] MEDS ORDERED: ONDANSETRON ODT 4 MG TAB PO STA (22:10)
[2018-06-30 22:54] LABS: Basophils % (A) 0 %; Eosinophils # (A) 0.1 k/uL (0-0.7); Eosinophils % (A) 1 %; HCT 40.6 % (34.0-46.0); HGB 13.6 gm/dL (11.4-16.0); Lymphocytes # (A) 2.1 k/uL (1.0-4.8); Lymphocytes % (A) 21 %; MCH 28.4 pg (25.0-35.0); MCHC 33.5 g/dL (31.0-37.0); MCV 84.9 fL (80.0-100.0); Mean Platelet Volume 6.8; Monocytes # (A) 0.5 k/uL (0-1.0); Monocytes % (A) 5 %; Neutrophils # (A) 7.2 k/uL (1.3-7.7); Neutrophils % (A) 72 %; Platelet Count 409 k/uL (150-450); RBC 4.77 m/uL (3.80-5.40); RDW 14.2 % (11.5-15.5)
[2018-06-30 23:02] LABS: ALT 28 U/L (9-52); AST 24 U/L (14-36); Albumin 4.8 g/dL (3.5-5.0); Alkaline Phosphatase 111 U/L (38-126); Amylase 50 U/L (30-110); Anion Gap 14 mmol/L; Blood Urea Nitrogen 13 mg/dL (7-17); Calcium 9.8 mg/dL (8.4-10.2); Carbon Dioxide 19 mmol/L (22-30); Chloride 108 mmol/L (98-107); Glucose 179 mg/dL (74-99); Lipase 91 U/L (23-300); Potassium 4.5 mmol/L (3.5-5.1); Sodium 141 mmol/L (137-145); Total Bilirubin 0.2 mg/dL (0.2-1.3); Total Protein 7.8 g/dL (6.3-8.2)
[2018-06-30] MEDS ORDERED: SODIUM CHLORIDE 0.9% 1,000 ML IV ONE (23:51)
[2018-07-01 01:20] VITALS: BP 140/90; PULSE 108; TEMP 98.5
== END 2018-07-01 01:41 | disposition home or self-care (01) ==
LOC: EC 18:16
DX: R10.11 Right upper quadrant pain (principal); R30.0 Dysuria; R11.0 Nausea; N32.89 Other specified disorders of bladder; E11.40 Type 2 diabetes mellitus with diabetic neuropathy, unspecified; E07.9 Disorder of thyroid, unspecified; Z86.73 Personal history of transient ischemic attack (TIA), and cerebral infarction without residual deficits; Z86.14 Personal history of Methicillin resistant Staphylococcus aureus infection; Z86.718 Personal history of other venous thrombosis and embolism; Z79.01 Long term (current) use of anticoagulants; Z79.899 Other long term (current) drug therapy; Z79.4 Long term (current) use of insulin; Z88.2 Allergy status to sulfonamides; Z88.7 Allergy status to serum and vaccine; Z88.1 Allergy status to other antibiotic agents; Z88.8 Allergy status to other drugs, medicaments and biological substances
CPT/HCPCS: 36415; 93005; 80053; 82150; 83605; 83690; 85025; 81001; 81025; 87086; 99284; 96372; 96360; J2270

== ENCOUNTER 2018-07-03 13:11 | Emergency (ER) | payer MEDICARE, OTHER ==
[2018-07-03] MEDS ORDERED: SODIUM CHLORIDE 0.9% 1,000 ML IV STA (14:18)
[2018-07-03] MEDS ORDERED: ONDANSETRON 4 MG/2 ML VIAL IVP STA (14:18)
[2018-07-03] MEDS ORDERED: KETOROLAC 30 MG/ML 1 ML VIAL IVP STA (14:18)
--- NOTE | 2018-07-03 14:25 | ED ---
Abdominal Pain HPI - General Chief Complaint: Abdominal Pain Stated Complaint: NAUSEA, VOMITING, ABDOMINAL PAIN Time Seen by Provider: 07/03/18 14:02 Source: patient, RN notes reviewed Mode of arrival: wheelchair Limitations: no limitations - History of Present Illness Initial Comments: This is a 37-year-old female who presents to the emergency department with chief complaint of abdominal pain and dysuria. Patient reports a history of frequent urinary tract infections. She states that she has a port for IV antibiotics inserted into her right upper chest. This is managed by Dr. Hansen. Patient states that for the past 5-6 days she has had suprapubic tenderness, dysuria, bilateral flank pain, nausea and vomiting and right upper quadrant abdominal pain. Last episode of vomiting was last night. She has been taking Zofran and Reglan. Patient states that she was seen here on Tuesday and did not have a urinary tract infection at the time. Patient was discharged home and recommended to follow-up with her primary care provider this morning. Patient states that she called and is unable to get an appointment until . Patient states that the pain has worsened so had to come to the emergency department. Patient states that she has had a temperature as high as 100 in the evenings. Denies any chills, chest pain or shortness of breath, diarrhea or constipation, hematuria. - Related Data Home Medications Medication Instructions Recorded Confirmed Rivaroxaban [Xarelto] 20 mg PO DAILY 03/09/17 07/03/18 tiZANidine [Zanaflex] 8 mg PO HS 03/09/17 07/03/18 Metoclopramide [Reglan] 10 mg PO ACHS 07/29/17 07/03/18 Trimethobenzamide HCl [Tigan] 300 mg PO TID PRN 09/25/17 07/03/18 Metoprolol Succinate (ER) [Toprol 100 mg PO DAILY 10/24/17 07/03/18 XL] Ranitidine HCl 150 mg PO BID 12/17/17 07/03/18 Insulin Glargine [Lantus] 35 unit SQ HS 03/15/18 07/03/18 Losartan [Cozaar] 50 mg PO DAILY 03/15/18 07/03/18 Cyanocobalamin (Vitamin B-12) 2,000 mcg PO DAILY 05/23/18 07/03/18 [Vitamin B-12] Insulin Lispro [humaLOG Kwikpen] See Protocol SQ ACHS 05/23/18 07/03/18 Levothyroxine Sodium 250 mcg PO DAILY 05/23/18 07/03/18 Loratadine [Claritin] 10 mg PO DAILY 05/23/18 07/03/18 Ondansetron [Zofran ODT] 8 mg PO Q6H PRN 05/23/18 07/03/18 Topiramate [Topamax] 75 mg PO BID 05/23/18 07/03/18 Butalb/APAP/Caff 50-325-40Mg 1 tab PO Q8H PRN 06/11/18 07/03/18 [Fioricet 50-325-40] traMADol HCL [Ultram] 50 mg PO Q8H PRN 06/19/18 07/03/18 Cranberry Fruit Concentrate [Azo 500 mg PO TID PRN 07/03/18 07/03/18 Cranberry] Previous Rx's Medication Instructions Recorded tiZANidine [Zanaflex] 2 mg PO DAILY 3 Days #3 tab 05/30/18 Nitrofurantoin Monohyd/M-Cryst 100 mg PO Q12HR #14 cap 07/03/18 [Macrobid] Allergies Allergy/AdvReac Type Severity Reaction Status Date / Time barium sulfate Allergy Anaphylaxis Verified 07/03/18 14:46 diphtheria, pertussis, Allergy Unknown Verified 07/03/18 14:46 tetanus vacc doxepin [Doxepin] Allergy Anaphylaxis Verified 07/03/18 14:46 ephedrine Allergy Unknown Verified 07/03/18 14:46 ertapenem [From Invanz] Allergy Rash/Hives Verified 07/03/18 14:46 influenza virus vaccine, Allergy Anaphylaxis Verified 07/03/18 14:46 specific [Influenza Virus Vacc,Specific] promethazine HCl Allergy Anaphylaxis Verified 07/03/18 14:46 [From Phenergan] doxycycline AdvReac Nausea & Verified 07/03/18 14:46 Vomiting & Diarrhea Pertussis Vaccines AdvReac fever/seizu Verified 07/03/18 14:46 re pseudoephedrine AdvReac Chest Pain Verified 07/03/18 14:46 pseudoephedrine HCl AdvReac Chest Pain Verified 07/03/18 14:46 [From Sudafed] sulfamethoxazole AdvReac Nausea & Verified 07/03/18 14:46 [From Bactrim] Vomiting trimethoprim [From Bactrim] AdvReac Nausea & Verified 07/03/18 14:46 Vomiting Review of Systems ROS Statement: Those systems with pertinent positive or pertinent negative responses have been documented in the HPI. ROS Other: All systems not noted in ROS Statement are negative. Past Medical History Past Medical History: Chest Pain / Angina, CVA/TIA, Diabetes Mellitus, Deep Vein Thrombosis (DVT), Neurologic Disorder, Syncope, Thyroid Disorder Additional Past Medical History / Comment(s): "STROKE LIKE EPISODE D/T MITOCHRONDIAL DISEASE HAD WORK UP DONE AT [facility]. WEARS A BRACE ON LT ANKLE AND LT WRIST".Dysautonomia-progressive neurological disorder, lupus/LUPUS ANTICOAGULANTS, 2004 CVA without residual, ana maria's disease, lymphedema Lt arm d/t DVTs , v-tach, pituitary microadenoma. "mitochondrial disease". patent foramen ovale, narcolepsy, gastropareis, IDDM type II, uti's, falls, orthostatic hypotension/syncope,migraines with hemiplegia, pernicious anemia, polycystic ovarian syndrome, neuropathy bilateral legs/fee-mild, uterine ablation August 2015/patient no longer has periods-had uterine ablation uti's. , midline access for fluids-current access issues has contacted dr hansen. History of Any Multi-Drug Resistant Organisms: ESBL, MRSA Date of last positivie culture/infection: 03/09/17 MRSA/ 05/17/18 ESBL MDRO Source:: MRSA LEFT ARM,/ESBL URINE ECOLI Past Surgical History: Ablation, Uterine Ablation Additional Past Surgical History / Comment(s): colonscopy/egd, angie, stress test. PORT-A -CATH INSERTION 04-28-18 Past Anesthesia/Blood Transfusion Reactions: No Reported Reaction Additional Past Anesthesia/Blood Transfusion Reaction / Comment(s): patient states "It takes a lot of anesthesia for my body to react". Pt has received blood in past without reaction. Past Psychological History: Bipolar, Depression Smoking Status: Never smoker Past Alcohol Use History: None Reported Past Drug Use History: None Reported - Past Family History Brother(s) Family Medical History: Diabetes Mellitus, Hyperlipidemia, Hypertension Additional Family Medical History / Comment(s): Patient states she has 1 brother with no major medical problems. Father Family Medical History: Diabetes Mellitus, Hyperlipidemia, Hypertension Additional Family Medical History / Comment(s): DAD IS 70 YEARS OLD. Patient states she does not have any contact with her father and does not know his medical history. Mother Family Medical History: Blood Disorder, Chest Pain / Angina, CVA/TIA, Hyperlipidemia, Hypertension Additional Family Medical History / Comment(s): AGE 62 HAS LUPUS, blood pressure swings high to low, antiphospholipid antibody syndrome General Exam - General Exam Comments Initial Comments: General: Awake and alert, well-developed; in no apparent distress. Does not appear acutely ill. HEENT: Head atraumatic, normocephalic. Pupils are equal, round and reactive to light. Extraocular movements intact. Oropharynx moist without erythema or exudate. Neck: Supple. Normal ROM. Cardiovascular: Regular rate and rhythm. No murmurs, rubs or gallops. Chest symmetrical. Respiratory: Lungs clear to auscultation bilaterally. No wheezes, rales or rhonchi. Normal respiratory effort with no use of accessory muscles. Abdomen: Soft, non-distended. Mild tenderness on palpation of the suprapubic region. No rigidity, rebound or guarding. Normal bowel sounds in all 4 quadrants. Musculoskeletal: Normal ROM, no tenderness bilateral upper and lower extremities. Ambulating normally. Skin: [place], warm and dry without rashes or lesions. Neurological: Alert and oriented x3. CN II-XII grossly intact. Speech is fluent and answers are appropriate. No focal neuro deficits. Psychiatric: Normal mood and affect. No overt signs of depression or anxiety noted. Limitations: no limitations Course Vital Signs 07/03/18 07/03/18 13:13 15:22 Temperature 99.3 F Pulse Rate 130 H 91 Respiratory 22 16 Rate Blood Pressure 148/85 178/96 O2 Sat by Pulse 99 97 Oximetry Medical Decision Making - Medical Decision Making This is a 37-year-old female who presents to the emergency department with chief complaint of abdominal pain and dysuria. Patient reports a history of frequent UTIs. She states that she has been experiencing suprapubic tenderness and dysuria for the past 5-6 days. She states that she was recently on Macrobid. Patient was seen here on Tuesday and discharged home. Her urine was sent for a culture and only the normal skin radha was noted. No bacteria was cultured. Patient states that her suprapubic tenderness has increased since that time. She states that the only thing that has been helping are leftover Dilaudid pills that she has at home. Abdomen is soft with mild tenderness over the suprapubic region. Vital signs are stable. UA did reveal evidence for nitrites. Patient will be started on Macrobid as a previous urine culture study revealed that this was susceptible to Macrobid. Case discussed with attending physician, Dr. Park. Patient will be discharged home at this time. Recommended following up with her primary care provider on as scheduled. She is in agreement. All questions answered. - Lab Data Result diagrams: 07/03/18 14:33 07/03/18 14:33 Lab Results 07/03/18 07/03/18 07/03/18 Range/Units 14:33 14:33 14:33 WBC 12.3 H (3.8-10.6) k/uL RBC 4.80 (3.80-5.40) m/uL Hgb 13.4 (11.4-16.0) gm/dL Hct 40.4 (34.0-46.0) % MCV 84.3 (80.0-100.0) fL MCH 28.0 (25.0-35.0) pg MCHC 33.2 (31.0-37.0) g/dL RDW 14.2 (11.5-15.5) % Plt Count 342 (150-450) k/uL Neutrophils % 85 % Lymphocytes % 9 % Monocytes % 4 % Eosinophils % 1 % Basophils % 0 % Neutrophils # 10.5 H (1.3-7.7) k/uL Lymphocytes # 1.2 (1.0-4.8) k/uL Monocytes # 0.5 (0-1.0) k/uL Eosinophils # 0.1 (0-0.7) k/uL Basophils # 0.0 (0-0.2) k/uL PT 10.2 (9.0-12.0) sec INR 1.0 (<1.2) APTT 25.0 (22.0-30.0) sec Sodium 142 (137-145) mmol/L Potassium 4.4 (3.5-5.1) mmol/L Chloride 110 H (98-107) mmol/L Carbon Dioxide 17 L (22-30) mmol/L Anion Gap 15 mmol/L BUN 8 (7-17) mg/dL Creatinine 0.51 L (0.52-1.04) mg/dL Est GFR (CKD-EPI)AfAm >90 (>60 ml/min/1.73 sqM) Est GFR (CKD-EPI)NonAf >90 (>60 ml/min/1.73 sqM) Glucose 152 H (74-99) mg/dL Calcium 10.1 (8.4-10.2) mg/dL Total Bilirubin 0.4 (0.2-1.3) mg/dL AST 26 (14-36) U/L ALT 23 (9-52) U/L Alkaline Phosphatase 112 (38-126) U/L Total Protein 7.6 (6.3-8.2) g/dL Albumin 4.8 (3.5-5.0) g/dL Amylase 41 (30-110) U/L Lipase 68 (23-300) U/L Urine Color Urine Appearance (Clear) Urine pH (5.0-8.0) Ur Specific [place] (1.001-1.035) Urine Protein (Negative) Urine Glucose (UA) (Negative) Urine Ketones (Negative) Urine Blood (Negative) Urine Nitrite (Negative) Urine Bilirubin (Negative) Urine Urobilinogen (<2.0) mg/dL Ur Leukocyte Esterase (Negative) Urine RBC (0-5) /hpf Urine WBC (0-5) /hpf Ur Squamous Epith Cells (0-4) /hpf Amorphous Sediment (None) /hpf Hyaline Casts (0-2) /lpf Urine Mucus (None) /hpf 07/03/18 Range/Units 14:33 WBC (3.8-10.6) k/uL RBC (3.80-5.40) m/uL Hgb (11.4-16.0) gm/dL Hct (34.0-46.0) % MCV (80.0-100.0) fL MCH (25.0-35.0) pg MCHC (31.0-37.0) g/dL RDW (11.5-15.5) % Plt Count (150-450) k/uL Neutrophils % % Lymphocytes % % Monocytes % % Eosinophils % % Basophils % % Neutrophils # (1.3-7.7) k/uL Lymphocytes # (1.0-4.8) k/uL Monocytes # (0-1.0) k/uL Eosinophils # (0-0.7) k/uL Basophils # (0-0.2) k/uL PT (9.0-12.0) sec INR (<1.2) APTT (22.0-30.0) sec Sodium (137-145) mmol/L Potassium (3.5-5.1) mmol/L Chloride (98-107) mmol/L Carbon Dioxide (22-30) mmol/L Anion Gap mmol/L BUN (7-17) mg/dL Creatinine (0.52-1.04) mg/dL Est GFR (CKD-EPI)AfAm (>60 ml/min/1.73 sqM) Est GFR (CKD-EPI)NonAf (>60 ml/min/1.73 sqM) Glucose (74-99) mg/dL Calcium (8.4-10.2) mg/dL Total Bilirubin (0.2-1.3) mg/dL AST (14-36) U/L ALT (9-52) U/L Alkaline Phosphatase (38-126) U/L Total Protein (6.3-8.2) g/dL Albumin (3.5-5.0) g/dL Amylase (30-110) U/L Lipase (23-300) U/L Urine Color Dark Brown Urine Appearance Cloudy H (Clear) Urine pH 5.0 (5.0-8.0) Ur Specific [place] 1.020 (1.001-1.035) Urine Protein 2+ H (Negative) Urine Glucose (UA) Negative (Negative) Urine Ketones 1+ H (Negative) Urine Blood Negative (Negative) Urine Nitrite Positive H (Negative) Urine Bilirubin Negative (Negative) Urine Urobilinogen 2.0 (<2.0) mg/dL Ur Leukocyte Esterase Negative (Negative) Urine RBC 2 (0-5) /hpf Urine WBC 6 H (0-5) /hpf Ur Squamous Epith Cells 7 H (0-4) /hpf Amorphous Sediment Rare H (None) /hpf Hyaline Casts 268 H (0-2) /lpf Urine Mucus Few H (None) /hpf Disposition Clinical Impression: Urinary tract infection Disposition: HOME SELF-CARE Condition: Good Instructions: Urinary Tract Infection in Women (ED) Additional Instructions: Please take medications as prescribed. Please follow up with primary care provider within 1-2 days. Return to emergency department if symptoms should worsen or any concerns arise. Prescriptions: Nitrofurantoin Monohyd/M-Cryst [Macrobid] 100 mg PO Q12HR #14 cap Is patient prescribed a controlled substance at d/c from ED?: No Referrals: Maryellen Joel MD [Primary Care Provider] - 1-2 days Time of Disposition: 15:50
[2018-07-03 14:48] LABS: Basophils % (A) 0 %; Eosinophils # (A) 0.1 k/uL (0-0.7); Eosinophils % (A) 1 %; HCT 40.4 % (34.0-46.0); HGB 13.4 gm/dL (11.4-16.0); Lymphocytes # (A) 1.2 k/uL (1.0-4.8); Lymphocytes % (A) 9 %; MCHC 33.2 g/dL (31.0-37.0); MCV 84.3 fL (80.0-100.0); Monocytes # (A) 0.5 k/uL (0-1.0); Monocytes % (A) 4 %; Neutrophils # (A) 10.5 k/uL (1.3-7.7); Neutrophils % (A) 85 %; Platelet Count 342 k/uL (150-450); RDW 14.2 % (11.5-15.5); WBC 12.3 k/uL (3.8-10.6)
[2018-07-03 14:56] LABS: Prothrombin Time 10.2 sec (9.0-12.0)
[2018-07-03 14:57] LABS: ALT 23 U/L (9-52); AST 26 U/L (14-36); Albumin 4.8 g/dL (3.5-5.0); Alkaline Phosphatase 112 U/L (38-126); Amylase 41 U/L (30-110); Anion Gap 15 mmol/L; Blood Urea Nitrogen 8 mg/dL (7-17); Calcium 10.1 mg/dL (8.4-10.2); Carbon Dioxide 17 mmol/L (22-30); Chloride 110 mmol/L (98-107); Glucose 152 mg/dL (74-99); Lipase 68 U/L (23-300); Potassium 4.4 mmol/L (3.5-5.1); Sodium 142 mmol/L (137-145); Total Bilirubin 0.4 mg/dL (0.2-1.3); Total Protein 7.6 g/dL (6.3-8.2)
[2018-07-03 14:59] LABS: Amorphous Sediment,Urine Rare /hpf; Appearance,Urine Cloudy (Clear); Bilirubin,Urine Negative (Negative); Blood,Urine Negative (Negative); Color,Urine Dark Brown; Glucose,Urine (UA) Negative (Negative); Hyaline Casts,Urine 268 /lpf (0-2); Ketones,Urine 1+ (Negative); Leukocyte Esterase,Urine Negative (Negative); Mucus,Urine Few /hpf; Nitrite,Urine Positive (Negative); Protein,Urine 2+ (Negative); RBC,Urine 2 /hpf (0-5); Squamous Epithelial Cell,Urine 7 /hpf (0-4); WBC,Urine 6 /hpf (0-5)
[2018-07-03] MEDS ORDERED: KETOROLAC 30 MG/ML 1 ML VIAL IM STA (15:11)
[2018-07-03] MEDS ORDERED: ONDANSETRON ODT 4 MG TAB PO STA (15:11)
[2018-07-03] MEDS ORDERED: ONDANSETRON 4 MG ODT STARTER PACK 2 TAB BTL PO STA (15:44)
[2018-07-03] MEDS ORDERED: NITROFURANTOIN MONOHYD/M-CRYST 100 MG CAP PO STA (15:45)
[2018-07-03 16:01] VITALS: BP 169/86; PULSE 100; RESP 18; TEMP 98.5
== END 2018-07-03 16:23 | disposition home or self-care (01) ==
LOC: EC 13:11
DX: N39.0 Urinary tract infection, site not specified (principal); E11.40 Type 2 diabetes mellitus with diabetic neuropathy, unspecified; G43.909 Migraine, unspecified, not intractable, without status migrainosus; E07.9 Disorder of thyroid, unspecified; D51.0 Vitamin B12 deficiency anemia due to intrinsic factor deficiency; Z86.14 Personal history of Methicillin resistant Staphylococcus aureus infection; Z86.73 Personal history of transient ischemic attack (TIA), and cerebral infarction without residual deficits; Z86.718 Personal history of other venous thrombosis and embolism; Z79.01 Long term (current) use of anticoagulants; Z79.4 Long term (current) use of insulin; Z79.899 Other long term (current) drug therapy; Z88.7 Allergy status to serum and vaccine; Z88.8 Allergy status to other drugs, medicaments and biological substances; Z88.1 Allergy status to other antibiotic agents; Z88.2 Allergy status to sulfonamides
CPT/HCPCS: 36415; 80053; 82150; 83690; 85025; 85610; 85730; 81001; 87040; 87086; 99284; 96372; J1885; S0119

== ENCOUNTER 2018-07-17 18:22 | Emergency (ER) | payer MEDICARE, OTHER ==
[2018-07-17] MEDS ORDERED: diphenhydrAMINE 50 MG/ML 1 ML VIAL IVP STA (19:08)
[2018-07-17] MEDS ORDERED: SODIUM CHLORIDE 0.9% 1,000 ML IV STA (19:08)
[2018-07-17] MEDS ORDERED: METOCLOPRAMIDE 5 MG/ML 2 ML VIAL IVP STA (19:08)
[2018-07-17] MEDS ORDERED: ORPHENADRINE 30 MG/ML 2 ML VIAL IVP STA (19:09)
--- NOTE | 2018-07-17 19:13 | ED ---
Headache HPI - General Chief Complaint: Headache Stated Complaint: Headache Time Seen by Provider: 07/17/18 19:01 Source: RN notes reviewed, old records reviewed Mode of arrival: wheelchair Limitations: no limitations - History of Present Illness Initial Comments: 38-year-old female presents emergency Department due to complaint of headache. Patient reports the headache started 2:00 this afternoon. She reports she has a history of migraines however this headache seems different than HER previous migraine headaches. She reports the headache was a quick onset. Patient states that she's had episode of vomiting. She is that she has a port due to history of severe urinary tract infections and sepsis. Patient states she was on antibiotics a few weeks ago. It is sent she denies any urinary symptoms, down pain. She reports she has no chest pain or shortness of breath. Patient states that she's taken Fioricet, Reglan, Benadryl and tizanidine for her migraine headache with little relief. She does report her Nexium to somewhat sore as well. Patient denies any recent chills, shortness of breath, chest pain , back pain, abdominal pain, nausea vomiting, numbness or tingling, dysuria or hematuria, constipation or diarrhea, headaches or visual changes, or any other current symptomslast menstrual period was 2 years ago due to uterine ablation. - Related Data Home Medications Medication Instructions Recorded Confirmed Rivaroxaban [Xarelto] 20 mg PO DAILY 03/09/17 07/03/18 tiZANidine [Zanaflex] 8 mg PO HS 03/09/17 07/03/18 Metoclopramide [Reglan] 10 mg PO ACHS 07/29/17 07/03/18 Trimethobenzamide HCl [Tigan] 300 mg PO TID PRN 09/25/17 07/03/18 Metoprolol Succinate (ER) [Toprol 100 mg PO DAILY 10/24/17 07/03/18 XL] Ranitidine HCl 150 mg PO BID 12/17/17 07/03/18 Insulin Glargine [Lantus] 35 unit SQ HS 03/15/18 07/03/18 Losartan [Cozaar] 50 mg PO DAILY 03/15/18 07/03/18 Cyanocobalamin (Vitamin B-12) 2,000 mcg PO DAILY 05/23/18 07/03/18 [Vitamin B-12] Insulin Lispro [humaLOG Kwikpen] See Protocol SQ ACHS 05/23/18 07/03/18 Levothyroxine Sodium 250 mcg PO DAILY 05/23/18 07/03/18 Loratadine [Claritin] 10 mg PO DAILY 05/23/18 07/03/18 Ondansetron [Zofran ODT] 8 mg PO Q6H PRN 05/23/18 07/03/18 Topiramate [Topamax] 75 mg PO BID 05/23/18 07/03/18 Butalb/APAP/Caff 50-325-40Mg 1 tab PO Q8H PRN 06/11/18 07/03/18 [Fioricet 50-325-40] traMADol HCL [Ultram] 50 mg PO Q8H PRN 06/19/18 07/03/18 Cranberry Fruit Concentrate [Azo 500 mg PO TID PRN 07/03/18 07/03/18 Cranberry] Previous Rx's Medication Instructions Recorded tiZANidine [Zanaflex] 2 mg PO DAILY 3 Days #3 tab 05/30/18 Nitrofurantoin Monohyd/M-Cryst 100 mg PO Q12HR #14 cap 07/03/18 [Macrobid] Allergies Allergy/AdvReac Type Severity Reaction Status Date / Time barium sulfate Allergy Anaphylaxis Verified 07/17/18 18:36 diphtheria, pertussis, Allergy Unknown Verified 07/17/18 18:36 tetanus vacc doxepin [Doxepin] Allergy Anaphylaxis Verified 07/17/18 18:36 ephedrine Allergy Unknown Verified 07/17/18 18:36 ertapenem [From Invanz] Allergy Rash/Hives Verified 07/17/18 18:36 influenza virus vaccine, Allergy Anaphylaxis Verified 07/17/18 18:36 specific [Influenza Virus Vacc,Specific] promethazine HCl Allergy Anaphylaxis Verified 07/17/18 18:36 [From Phenergan] doxycycline AdvReac Nausea & Verified 07/17/18 18:36 Vomiting & Diarrhea Pertussis Vaccines AdvReac fever/seizu Verified 07/17/18 18:36 re pseudoephedrine AdvReac Chest Pain Verified 07/17/18 18:36 pseudoephedrine HCl AdvReac Chest Pain Verified 07/17/18 18:36 [From Sudafed] sulfamethoxazole AdvReac Nausea & Verified 07/17/18 18:36 [From Bactrim] Vomiting trimethoprim [From Bactrim] AdvReac Nausea & Verified 07/17/18 18:36 Vomiting Review of Systems ROS Statement: Those systems with pertinent positive or pertinent negative responses have been documented in the HPI. ROS Other: All systems not noted in ROS Statement are negative. Past Medical History Past Medical History: Chest Pain / Angina, CVA/TIA, Diabetes Mellitus, Deep Vein Thrombosis (DVT), Neurologic Disorder, Syncope, Thyroid Disorder Additional Past Medical History / Comment(s): "STROKE LIKE EPISODE D/T MITOCHRONDIAL DISEASE HAD WORK UP DONE AT [facility]. WEARS A BRACE ON LT ANKLE AND LT WRIST".Dysautonomia-progressive neurological disorder, lupus/LUPUS ANTICOAGULANTS, 2004 CVA without residual, ana maria's disease, lymphedema Lt arm d/t DVTs , v-tach, pituitary microadenoma. "mitochondrial disease". patent foramen ovale, narcolepsy, gastropareis, IDDM type II, uti's, falls, orthostatic hypotension/syncope,migraines with hemiplegia, pernicious anemia, polycystic ovarian syndrome, neuropathy bilateral legs/fee-mild, uterine ablation August 2015/patient no longer has periods-had uterine ablation uti's. , midline access for fluids-current access issues has contacted dr quigley. History of Any Multi-Drug Resistant Organisms: ESBL, MRSA Date of last positivie culture/infection: 03/09/17 MRSA/ 05/17/18 ESBL MDRO Source:: MRSA LEFT ARM,/ESBL URINE ECOLI Past Surgical History: Ablation, Uterine Ablation Additional Past Surgical History / Comment(s): colonscopy/egd, angie, stress test. PORT-A -CATH INSERTION 04-28-18 Past Anesthesia/Blood Transfusion Reactions: No Reported Reaction Additional Past Anesthesia/Blood Transfusion Reaction / Comment(s): patient states "It takes a lot of anesthesia for my body to react". Pt has received blood in past without reaction. Past Psychological History: Bipolar, Depression Smoking Status: Never smoker Past Alcohol Use History: None Reported Past Drug Use History: None Reported - Past Family History Brother(s) Family Medical History: Diabetes Mellitus, Hyperlipidemia, Hypertension Additional Family Medical History / Comment(s): Patient states she has 1 brother with no major medical problems. Father Family Medical History: Diabetes Mellitus, Hyperlipidemia, Hypertension Additional Family Medical History / Comment(s): DAD IS 70 YEARS OLD. Patient states she does not have any contact with her father and does not know his medical history. Mother Family Medical History: Blood Disorder, Chest Pain / Angina, CVA/TIA, Hyperlipidemia, Hypertension Additional Family Medical History / Comment(s): AGE 62 HAS LUPUS, blood pressure swings high to low, antiphospholipid antibody syndrome General Exam - General Exam Comments Initial Comments: This is a [id number]. Alert and oriented. No acute distress. Limitations: no limitations General appearance: alert, in no apparent distress Head exam: Present: atraumatic, normocephalic, normal inspection Eye exam: Present: normal appearance, PERRL, EOMI. Absent: scleral icterus, conjunctival injection, periorbital swelling ENT exam: Present: normal exam, mucous membranes moist Neck exam: Present: normal inspection. Absent: tenderness, meningismus, lymphadenopathy Respiratory exam: Present: normal lung sounds bilaterally. Absent: respiratory distress, wheezes, rales, rhonchi, stridor Cardiovascular Exam: Present: regular rate, normal rhythm, normal heart sounds. Absent: systolic murmur, diastolic murmur, rubs, gallop, clicks GI/Abdominal exam: Present: soft, normal bowel sounds. Absent: distended, tenderness, guarding, rebound, rigid Extremities exam: Present: normal inspection, full ROM, normal capillary refill. Absent: tenderness, pedal edema, joint swelling, calf tenderness Back exam: Present: normal inspection Neurological exam: Present: alert, oriented X3, CN II-XII intact Psychiatric exam: Present: normal affect, normal mood Skin exam: Present: warm, dry, intact, normal color. Absent: rash Course Vital Signs 07/17/18 07/17/18 18:33 20:57 Temperature 98.9 F Pulse Rate 102 H 98 Respiratory 18 16 Rate Blood Pressure 134/89 125/74 O2 Sat by Pulse 98 97 Oximetry - Reevaluation(s) Reevaluation #1: 07/17/18 20:56 Patient is reevaluated this time and reports that her headache is continuing to persist. Medical Decision Making - Medical Decision Making there is 8-year-old female wants emergency Department chief complaint of headache. Onset 2 PM. Also [id number] medications and prescribed medications not helping. This time Patient is given Toradol and Reglan and Benadryl middle of her symptoms. We did a computed tomography scan of her brain. Any acute disease. No neurological deficits. Normal MRA approximately one month ago for any aneurysms or any other acute changes at this time. patient was given a subtotal dose of pain medication. discussed that she can follow-up with her primary care physician for further migraine management. patient understands treatment plan will comply. return parameters were discussed. - Lab Data Result diagrams: 07/17/18 19:47 07/17/18 19:47 Lab Results 07/17/18 07/17/18 07/17/18 Range/Units 19:20 19:47 19:47 WBC 11.8 H (3.8-10.6) k/uL RBC 4.49 (3.80-5.40) m/uL Hgb 12.9 (11.4-16.0) gm/dL Hct 38.5 (34.0-46.0) % MCV 85.7 (80.0-100.0) fL MCH 28.7 (25.0-35.0) pg MCHC 33.5 (31.0-37.0) g/dL RDW 14.7 (11.5-15.5) % Plt Count 348 (150-450) k/uL Neutrophils % 77 % Lymphocytes % 16 % Monocytes % 5 % Eosinophils % 1 % Basophils % 0 % Neutrophils # 9.1 H (1.3-7.7) k/uL Lymphocytes # 1.8 (1.0-4.8) k/uL Monocytes # 0.6 (0-1.0) k/uL Eosinophils # 0.1 (0-0.7) k/uL Basophils # 0.0 (0-0.2) k/uL Sodium 140 (137-145) mmol/L Potassium 3.9 (3.5-5.1) mmol/L Chloride 108 H (98-107) mmol/L Carbon Dioxide 18 L (22-30) mmol/L Anion Gap 14 mmol/L BUN 10 (7-17) mg/dL Creatinine 0.50 L (0.52-1.04) mg/dL Est GFR (CKD-EPI)AfAm >90 (>60 ml/min/1.73 sqM) Est GFR (CKD-EPI)NonAf >90 (>60 ml/min/1.73 sqM) Glucose 135 H (74-99) mg/dL Calcium 10.0 (8.4-10.2) mg/dL Total Bilirubin 0.3 (0.2-1.3) mg/dL AST 22 (14-36) U/L ALT 30 (9-52) U/L Alkaline Phosphatase 98 (38-126) U/L Total Protein 7.2 (6.3-8.2) g/dL Albumin 4.5 (3.5-5.0) g/dL Urine Color Yellow Urine Appearance Clear (Clear) Urine pH 6.5 (5.0-8.0) Ur Specific [place] 1.017 (1.001-1.035) Urine Protein Negative (Negative) Urine Glucose (UA) Negative (Negative) Urine Ketones Negative (Negative) Urine Blood Negative (Negative) Urine Nitrite Negative (Negative) Urine Bilirubin Negative (Negative) Urine Urobilinogen <2.0 (<2.0) mg/dL Ur Leukocyte Esterase Negative (Negative) - Radiology Data Radiology results: report reviewed Negative computed tomography scan of her brain. No acute changes. Disposition Clinical Impression: Migraine Disposition: HOME SELF-CARE Condition: Good Instructions: Acute Headache (ED) Additional Instructions: Patient has follow-up with primary care physician. Make sure he stay hydrated. Continue to use [id number] and prescribed medications. Patient to emergency department if any alarming signs or symptoms occur. Is patient prescribed a controlled substance at d/c from ED?: No Referrals: Fran Thompson MD [Primary Care Provider] - 1-2 days Time of Disposition: 21:56
[2018-07-17 19:59] LABS: Basophils % (A) 0 %; Eosinophils # (A) 0.1 k/uL (0-0.7); Eosinophils % (A) 1 %; HCT 38.5 % (34.0-46.0); HGB 12.9 gm/dL (11.4-16.0); Lymphocytes # (A) 1.8 k/uL (1.0-4.8); Lymphocytes % (A) 16 %; MCH 28.7 pg (25.0-35.0); MCHC 33.5 g/dL (31.0-37.0); MCV 85.7 fL (80.0-100.0); Mean Platelet Volume 6.8; Monocytes # (A) 0.6 k/uL (0-1.0); Monocytes % (A) 5 %; Neutrophils # (A) 9.1 k/uL (1.3-7.7); Neutrophils % (A) 77 %; Platelet Count 348 k/uL (150-450); RBC 4.49 m/uL (3.80-5.40); RDW 14.7 % (11.5-15.5); WBC 11.8 k/uL (3.8-10.6)
[2018-07-17 20:10] LABS: ALT 30 U/L (9-52); AST 22 U/L (14-36); Albumin 4.5 g/dL (3.5-5.0); Alkaline Phosphatase 98 U/L (38-126); Anion Gap 14 mmol/L; Blood Urea Nitrogen 10 mg/dL (7-17); Carbon Dioxide 18 mmol/L (22-30); Chloride 108 mmol/L (98-107); Glucose 135 mg/dL (74-99); Potassium 3.9 mmol/L (3.5-5.1); Sodium 140 mmol/L (137-145); Total Bilirubin 0.3 mg/dL (0.2-1.3); Total Protein 7.2 g/dL (6.3-8.2)
[2018-07-17 20:59] VITALS: RESP 16
[2018-07-17 20:59] LABS: Appearance,Urine Clear (Clear); Bilirubin,Urine Negative (Negative); Blood,Urine Negative (Negative); Color,Urine Yellow; Glucose,Urine (UA) Negative (Negative); Ketones,Urine Negative (Negative); Leukocyte Esterase,Urine Negative (Negative); Nitrite,Urine Negative (Negative); PH, Urine 6.5 (5.0-8.0); Protein,Urine Negative (Negative); Specific Gravity,Urine 1.017 (1.001-1.035); Urobilinogen,Urine <2.0 mg/dL (<2.0)
--- NOTE | 2018-07-17 21:32 | CT ---
EXAMINATION TYPE: CT brain wo con DATE OF EXAM: 07/17/2018 COMPARISON: 05/26/2018 HISTORY: Headache CT DLP: 1091 mGycm. Automated Exposure Control for Dose Reduction was Utilized. TECHNIQUE: CT scan of the head is performed without contrast. FINDINGS: Ventricles and sulci appear normal. There is no mass effect nor midline shift. There is no sign of intracranial hemorrhage. The calvarium is intact. IMPRESSION: Negative CT scan of the brain. No change.
[2018-07-17] MEDS ORDERED: HYDROmorphone 1 MG/ML 1 ML SYRINGE IVP STA (21:42)
[2018-07-17] MEDS ORDERED: KETOROLAC 30 MG/ML 1 ML VIAL IVP STA (21:42)
[2018-07-17 22:08] VITALS: BP 136/86; PULSE 96; TEMP 98.8
== END 2018-07-17 22:08 | disposition home or self-care (01) ==
LOC: SUPCPDRO 18:22 → EC 18:22
DX: G43.909 Migraine, unspecified, not intractable, without status migrainosus (principal); I20.9 Angina pectoris, unspecified; E11.9 Type 2 diabetes mellitus without complications; E07.9 Disorder of thyroid, unspecified; F31.9 Bipolar disorder, unspecified; Z86.73 Personal history of transient ischemic attack (TIA), and cerebral infarction without residual deficits; Z86.718 Personal history of other venous thrombosis and embolism; Z98.890 Other specified postprocedural states; Z79.01 Long term (current) use of anticoagulants; Z79.4 Long term (current) use of insulin; Z79.899 Other long term (current) drug therapy; Z88.1 Allergy status to other antibiotic agents; Z88.2 Allergy status to sulfonamides; Z88.7 Allergy status to serum and vaccine; Z88.8 Allergy status to other drugs, medicaments and biological substances; Z91.048 Other nonmedicinal substance allergy status
CPT/HCPCS: 36415; 80053; 85025; 81003; 70450; 99284; 96374; 96375 ×4; J1200; J2360; J2765; J1885; J1170

== ENCOUNTER → 2018-07-17 | Outpatient (CLI) | payer MEDICARE, OTHER ==
[2018-07-17 14:24] LABS: ALT 28 U/L (9-52); AST 23 U/L (14-36); Albumin 4.5 g/dL (3.5-5.0); Alkaline Phosphatase 95 U/L (38-126); Anion Gap 15 mmol/L; Blood Urea Nitrogen 9 mg/dL (7-17); C Reactive Protein 26.2 mg/L (<10.0); Calcium 10.1 mg/dL (8.4-10.2); Carbon Dioxide 21 mmol/L (22-30); Chloride 104 mmol/L (98-107); Cholesterol 236 mg/dL (<200); Creatine Kinase 81 U/L (30-135); Glucose 128 mg/dL (74-99); HDL Cholesterol 32 mg/dL (40-60); Potassium 4.3 mmol/L (3.5-5.1); Sodium 140 mmol/L (137-145); Total Bilirubin 0.4 mg/dL (0.2-1.3); Total Protein 7.4 g/dL (6.3-8.2)
[2018-07-17 14:30] LABS: Triglycerides 772 mg/dL (<150)
[2018-07-17 14:38] LABS: T4, Free (Free Thyroxine) 1.67 ng/dL (0.78-2.19)
--- NOTE | 2018-07-17 17:38 | XR ---
EXAMINATION TYPE: XR chest 2V DATE OF EXAM: 07/17/2018 COMPARISON: Prior chest x-ray 05/07/2018 and 04/28/2018 HISTORY: Malfunctioning Port-A-Cath TECHNIQUE: Frontal and lateral views of the chest are obtained. FINDINGS: The tip of the Port-A-Cath is overlying the region of the thoracic inlet or lower neck as on prior exam. No evident pneumothorax or pleural effusion. Cardiac mediastinal silhouette, pulmonary vascularity and shawna aren't unremarkable. IMPRESSION: Port-A-Cath tip as described in the lower right is stable since placement
[2018-07-17 19:06] LABS: Iron Saturation 22.46 (12.00-45.00)
[2018-07-17 19:28] LABS: Vitamin D 25 Hydroxy 9.2 ng/mL (30.0-100.0)
[2018-07-17 19:39] LABS: Hemoglobin A1C 6.6 % (4.0-6.0)
== END | disposition home or self-care (01) ==
LOC: LABWHC1 13:45
PROVIDERS: ATTEND Nurse Practitioner Adult Health
DX: Z48.89 Encounter for other specified surgical aftercare (principal); E11.65 Type 2 diabetes mellitus with hyperglycemia; Z98.890 Other specified postprocedural states; E78.2 Mixed hyperlipidemia; E03.9 Hypothyroidism, unspecified; E88.49 Other mitochondrial metabolism disorders; M32.9 Systemic lupus erythematosus, unspecified
CPT/HCPCS: 36415; 71046; 80053; 80061; 82306; 82533; 82550; 82607; 83036; 83540; 83550; 84439; 84443; 86140; 86160; 86162

== ENCOUNTER 2018-07-22 13:43 | Emergency (ER) | payer MEDICARE, OTHER ==
[2018-07-22] MEDS ORDERED: FAMOTIDINE 20 MG/2 ML VIAL IV STA (14:34)
[2018-07-22] MEDS ORDERED: SODIUM CHLORIDE 0.9% 1,000 ML IV STA (14:34)
[2018-07-22] MEDS ORDERED: ONDANSETRON 4 MG/2 ML VIAL IVP STA (14:34)
--- NOTE | 2018-07-22 14:37 | ED ---
General Adult HPI - General Chief complaint: Abdominal Pain Stated complaint: dehydrated Time Seen by Provider: 07/22/18 14:29 Source: patient, RN notes reviewed, old records reviewed Mode of arrival: wheelchair Limitations: no limitations - History of Present Illness Initial comments: Patient's 38-year-old female presented to the emergency room today with a chief complaint of possible dehydration. She does admit that her home health nurse came and advised her to come to the emergency room for possible dehydration as she is only been keeping down one or 2 glasses of water per day. She does admit that she's had some increased abdominal pain located in the upper abdomen. Patient states that the pain increases after she eats and drinks. Patient does admit that they have done evaluations on her gallbladder in the past and told her that does not function properly. Patient admits to some nausea. Denies any other complaints. Patient denies any recent fever, chills, shortness of breath, chest pain, headaches or visual changes, or any other complaints. - Related Data Home Medications Medication Instructions Recorded Confirmed Rivaroxaban [Xarelto] 20 mg PO DAILY 03/09/17 07/03/18 tiZANidine [Zanaflex] 8 mg PO HS 03/09/17 07/03/18 Metoclopramide [Reglan] 10 mg PO [facility] 07/29/17 07/03/18 Trimethobenzamide HCl [Tigan] 300 mg PO TID PRN 09/25/17 07/03/18 Metoprolol Succinate (ER) [Toprol 100 mg PO DAILY 10/24/17 07/03/18 XL] Ranitidine HCl 150 mg PO BID 12/17/17 07/03/18 Insulin Glargine [Lantus] 35 unit SQ 03/15/18 07/03/18 Losartan [Cozaar] 50 mg PO DAILY 03/15/18 07/03/18 Cyanocobalamin (Vitamin B-12) 2,000 mcg PO DAILY 05/23/18 07/03/18 [Vitamin B-12] Insulin Lispro [humaLOG Kwikpen] See Protocol SQ [facility] 05/23/18 07/03/18 Levothyroxine Sodium 250 mcg PO DAILY 05/23/18 07/03/18 Loratadine [Claritin] 10 mg PO DAILY 05/23/18 07/03/18 Ondansetron [Zofran ODT] 8 mg PO Q6H PRN 05/23/18 07/03/18 Topiramate [Topamax] 75 mg PO BID 05/23/18 07/03/18 Butalb/APAP/Caff 50-325-40Mg 1 tab PO Q8H PRN 06/11/18 07/03/18 [Fioricet 50-325-40] traMADol HCL [Ultram] 50 mg PO Q8H PRN 06/19/18 07/03/18 Cranberry Fruit Concentrate [Azo 500 mg PO TID PRN 07/03/18 07/03/18 Cranberry] Previous Rx's Medication Instructions Recorded tiZANidine [Zanaflex] 2 mg PO DAILY 3 Days #3 tab 05/30/18 Nitrofurantoin Monohyd/M-Cryst 100 mg PO Q12HR #14 cap 07/03/18 [Macrobid] Allergies Allergy/AdvReac Type Severity Reaction Status Date / Time barium sulfate Allergy Anaphylaxis Verified 07/22/18 14:08 diphtheria, pertussis, Allergy Unknown Verified 07/22/18 14:08 tetanus vacc doxepin [Doxepin] Allergy Anaphylaxis Verified 07/22/18 14:08 ephedrine Allergy Unknown Verified 07/22/18 14:08 ertapenem [From Invanz] Allergy Rash/Hives Verified 07/22/18 14:08 influenza virus vaccine, Allergy Anaphylaxis Verified 07/22/18 14:08 specific [Influenza Virus Vacc,Specific] promethazine HCl Allergy Anaphylaxis Verified 07/22/18 14:08 [From Phenergan] doxycycline AdvReac Nausea & Verified 07/22/18 14:08 Vomiting & Diarrhea Pertussis Vaccines AdvReac fever/seizu Verified 07/22/18 14:08 re pseudoephedrine AdvReac Chest Pain Verified 07/22/18 14:08 pseudoephedrine HCl AdvReac Chest Pain Verified 07/22/18 14:08 [From Sudafed] sulfamethoxazole AdvReac Nausea & Verified 07/22/18 14:08 [From Bactrim] Vomiting trimethoprim [From Bactrim] AdvReac Nausea & Verified 07/22/18 14:08 Vomiting Review of Systems ROS Statement: Those systems with pertinent positive or pertinent negative responses have been documented in the HPI. ROS Other: All systems not noted in ROS Statement are negative. Past Medical History Past Medical History: Chest Pain / Angina, CVA/TIA, Diabetes Mellitus, Deep Vein Thrombosis (DVT), Neurologic Disorder, Syncope, Thyroid Disorder Additional Past Medical History / Comment(s): "STROKE LIKE EPISODE D/T MITOCHRONDIAL DISEASE HAD WORK UP DONE AT [facility]. WEARS A BRACE ON LT ANKLE AND LT WRIST".Dysautonomia-progressive neurological disorder, lupus/LUPUS ANTICOAGULANTS, 2004 CVA without residual, ana maria's disease, lymphedema Lt arm d/t DVTs , v-tach, pituitary microadenoma. "mitochondrial disease". patent foramen ovale, narcolepsy, gastropareis, IDDM type II, uti's, falls, orthostatic hypotension/syncope,migraines with hemiplegia, pernicious anemia, polycystic ovarian syndrome, neuropathy bilateral legs/fee-mild, uterine ablation August 2015/patient no longer has periods-had uterine ablation uti's. , midline access for fluids-current access issues has contacted dr quigley. History of Any Multi-Drug Resistant Organisms: ESBL, MRSA Date of last positivie culture/infection: 03/09/17 MRSA/ 05/17/18 ESBL MDRO Source:: MRSA LEFT ARM,/ESBL URINE ECOLI Past Surgical History: Ablation, Uterine Ablation Additional Past Surgical History / Comment(s): colonscopy/egd, angie, stress test. PORT-A -CATH INSERTION 04-28-18 Past Anesthesia/Blood Transfusion Reactions: No Reported Reaction Additional Past Anesthesia/Blood Transfusion Reaction / Comment(s): patient states "It takes a lot of anesthesia for my body to react". Pt has received blood in past without reaction. Past Psychological History: Bipolar, Depression Smoking Status: Never smoker Past Alcohol Use History: None Reported Past Drug Use History: None Reported - Past Family History Brother(s) Family Medical History: Diabetes Mellitus, Hyperlipidemia, Hypertension Additional Family Medical History / Comment(s): Patient states she has 1 brother with no major medical problems. Father Family Medical History: Diabetes Mellitus, Hyperlipidemia, Hypertension Additional Family Medical History / Comment(s): DAD IS 70 YEARS OLD. Patient states she does not have any contact with her father and does not know his medical history. Mother Family Medical History: Blood Disorder, Chest Pain / Angina, CVA/TIA, Hyperlipidemia, Hypertension Additional Family Medical History / Comment(s): AGE 62 HAS LUPUS, blood pressure swings high to low, antiphospholipid antibody syndrome General Exam - General Exam Comments Initial Comments: General: The patient is awake and alert, in no distress, and does not appear acutely ill. Eye: Pupils are equal, round and reactive to light, extra-ocular movements are intact. No nystagmus. There is normal conjunctiva bilaterally. No signs of icterus. Ears, nose, mouth and throat: There are moist mucous membranes and no oral lesions. Neck: The neck is supple, there is no tenderness or JVD. Cardiovascular: There is a regular rate and rhythm. No murmur, rub or gallop is appreciated. Respiratory: Lungs are clear to auscultation, respirations are non-labored, breath sounds are equal. No wheezes, stridor, rales, or rhonchi. Gastrointestinal: Abdomen soft on palpation. Patient does have mild tenderness epigastric right upper quadrant. No rebound, guarding or CVA tenderness. Musculoskeletal: Normal ROM, no tenderness. Strength 5/5. Sensation intact. Pulses equal bilaterally 2+. Neurological: A&O x 3. CN II-XII intact, There are no obvious motor or sensory deficits. Coordination appears grossly intact. Speech is normal. Skin: Skin is warm and dry and no rashes or lesions are noted. Psychiatric: Cooperative, appropriate mood & affect, normal judgment. Limitations: no limitations Course Vital Signs 07/22/18 14:05 Temperature 98.9 F Pulse Rate 102 H Respiratory 18 Rate Blood Pressure 135/85 O2 Sat by Pulse 98 Oximetry Medical Decision Making - Medical Decision Making Case discussed in detail with attending physician Dr. Sahni. Patient reexamined at this time shows no signs of distress resting comfortably. Her labs been reviewed. Patient resting comfortably. Urine culture pending. Patient will be discharged home and advised to return if symptoms increase or worsen. She states understanding and is in agreement. - Lab Data Result diagrams: 07/22/18 14:49 07/22/18 14:49 Lab Results 07/22/18 07/22/18 07/22/18 Range/Units 14:49 14:49 14:49 WBC 10.2 (3.8-10.6) k/uL RBC 4.77 (3.80-5.40) m/uL Hgb 13.5 (11.4-16.0) gm/dL Hct 41.3 (34.0-46.0) % MCV 86.6 (80.0-100.0) fL MCH 28.2 (25.0-35.0) pg MCHC 32.6 (31.0-37.0) g/dL RDW 14.6 (11.5-15.5) % Plt Count 397 (150-450) k/uL Neutrophils % 78 % Lymphocytes % 14 % Monocytes % 6 % Eosinophils % 2 % Basophils % 1 % Neutrophils # 7.9 H (1.3-7.7) k/uL Lymphocytes # 1.4 (1.0-4.8) k/uL Monocytes # 0.6 (0-1.0) k/uL Eosinophils # 0.2 (0-0.7) k/uL Basophils # 0.1 (0-0.2) k/uL Sodium 142 (137-145) mmol/L Potassium 4.5 (3.5-5.1) mmol/L Chloride 109 H (98-107) mmol/L Carbon Dioxide 19 L (22-30) mmol/L Anion Gap 14 mmol/L BUN 9 (7-17) mg/dL Creatinine 0.55 (0.52-1.04) mg/dL Est GFR (CKD-EPI)AfAm >90 (>60 ml/min/1.73 sqM) Est GFR (CKD-EPI)NonAf >90 (>60 ml/min/1.73 sqM) Glucose 149 H (74-99) mg/dL Calcium 10.2 (8.4-10.2) mg/dL Total Bilirubin 0.4 (0.2-1.3) mg/dL AST 27 (14-36) U/L ALT 29 (9-52) U/L Alkaline Phosphatase 99 (38-126) U/L Total Protein 7.7 (6.3-8.2) g/dL Albumin 4.6 (3.5-5.0) g/dL Amylase 42 (30-110) U/L Lipase 69 (23-300) U/L Urine Color Urine Appearance (Clear) Urine pH (5.0-8.0) Ur Specific [place] (1.001-1.035) Urine Protein (Negative) Urine Glucose (UA) (Negative) Urine Ketones (Negative) Urine Blood (Negative) Urine Nitrite (Negative) Urine Bilirubin (Negative) Urine Urobilinogen (<2.0) mg/dL Ur Leukocyte Esterase (Negative) Urine RBC (0-5) /hpf Urine WBC (0-5) /hpf Ur Squamous Epith Cells (0-4) /hpf Urine Bacteria (None) /hpf Hyaline Casts (0-2) /lpf Urine Mucus (None) /hpf Urine HCG, Qual Not Detected (Not Detectd) 07/22/18 Range/Units 14:49 WBC (3.8-10.6) k/uL RBC (3.80-5.40) m/uL Hgb (11.4-16.0) gm/dL Hct (34.0-46.0) % MCV (80.0-100.0) fL MCH (25.0-35.0) pg MCHC (31.0-37.0) g/dL RDW (11.5-15.5) % Plt Count (150-450) k/uL Neutrophils % % Lymphocytes % % Monocytes % % Eosinophils % % Basophils % % Neutrophils # (1.3-7.7) k/uL Lymphocytes # (1.0-4.8) k/uL Monocytes # (0-1.0) k/uL Eosinophils # (0-0.7) k/uL Basophils # (0-0.2) k/uL Sodium (137-145) mmol/L Potassium (3.5-5.1) mmol/L Chloride (98-107) mmol/L Carbon Dioxide (22-30) mmol/L Anion Gap mmol/L BUN (7-17) mg/dL Creatinine (0.52-1.04) mg/dL Est GFR (CKD-EPI)AfAm (>60 ml/min/1.73 sqM) Est GFR (CKD-EPI)NonAf (>60 ml/min/1.73 sqM) Glucose (74-99) mg/dL Calcium (8.4-10.2) mg/dL Total Bilirubin (0.2-1.3) mg/dL AST (14-36) U/L ALT (9-52) U/L Alkaline Phosphatase (38-126) U/L Total Protein (6.3-8.2) g/dL Albumin (3.5-5.0) g/dL Amylase (30-110) U/L Lipase (23-300) U/L Urine Color Yellow Urine Appearance Cloudy H (Clear) Urine pH 5.5 (5.0-8.0) Ur Specific [place] 1.025 (1.001-1.035) Urine Protein 1+ H (Negative) Urine Glucose (UA) Negative (Negative) Urine Ketones Trace H (Negative) Urine Blood Negative (Negative) Urine Nitrite Negative (Negative) Urine Bilirubin Negative (Negative) Urine Urobilinogen 2.0 (<2.0) mg/dL Ur Leukocyte Esterase Moderate H (Negative) Urine RBC 2 (0-5) /hpf Urine WBC 16 H (0-5) /hpf Ur Squamous Epith Cells 13 H (0-4) /hpf Urine Bacteria Moderate H (None) /hpf Hyaline Casts 7 H (0-2) /lpf Urine Mucus Occasional H (None) /hpf Urine HCG, Qual (Not Detectd) Disposition Clinical Impression: Abdominal pain Disposition: HOME SELF-CARE Condition: Good Instructions: Abdominal Pain (ED) Additional Instructions: Please use medication as discussed. Please follow-up with family doctor in the next 2 days of symptoms have not improved. Please return to emergency room if the symptoms increase or worsen or for any other concerns. Is patient prescribed a controlled substance at d/c from ED?: No Referrals: Fran Thompson MD [Primary Care Provider] - 1-2 days Time of Disposition: 15:59
[2018-07-22 14:59] LABS: Basophils # (A) 0.1 k/uL (0-0.2); Basophils % (A) 1 %; Eosinophils # (A) 0.2 k/uL (0-0.7); Eosinophils % (A) 2 %; HCT 41.3 % (34.0-46.0); HGB 13.5 gm/dL (11.4-16.0); Lymphocytes # (A) 1.4 k/uL (1.0-4.8); Lymphocytes % (A) 14 %; MCH 28.2 pg (25.0-35.0); MCHC 32.6 g/dL (31.0-37.0); MCV 86.6 fL (80.0-100.0); Mean Platelet Volume 6.6; Monocytes # (A) 0.6 k/uL (0-1.0); Monocytes % (A) 6 %; Neutrophils # (A) 7.9 k/uL (1.3-7.7); Neutrophils % (A) 78 %; Platelet Count 397 k/uL (150-450); RBC 4.77 m/uL (3.80-5.40); RDW 14.6 % (11.5-15.5); WBC 10.2 k/uL (3.8-10.6)
[2018-07-22 15:03] LABS: Appearance,Urine Cloudy (Clear); Bacteria,Urine Moderate /hpf; Bilirubin,Urine Negative (Negative); Blood,Urine Negative (Negative); Color,Urine Yellow; Glucose,Urine (UA) Negative (Negative); Hyaline Casts,Urine 7 /lpf (0-2); Ketones,Urine Trace (Negative); Leukocyte Esterase,Urine Moderate (Negative); Mucus,Urine Occasional /hpf; Nitrite,Urine Negative (Negative); PH, Urine 5.5 (5.0-8.0); Protein,Urine 1+ (Negative); RBC,Urine 2 /hpf (0-5); Specific Gravity,Urine 1.025 (1.001-1.035); Squamous Epithelial Cell,Urine 13 /hpf (0-4); WBC,Urine 16 /hpf (0-5)
[2018-07-22 15:12] LABS: ALT 29 U/L (9-52); AST 27 U/L (14-36); Albumin 4.6 g/dL (3.5-5.0); Alkaline Phosphatase 99 U/L (38-126); Amylase 42 U/L (30-110); Anion Gap 14 mmol/L; Blood Urea Nitrogen 9 mg/dL (7-17); Calcium 10.2 mg/dL (8.4-10.2); Carbon Dioxide 19 mmol/L (22-30); Chloride 109 mmol/L (98-107); Glucose 149 mg/dL (74-99); Lipase 69 U/L (23-300); Potassium 4.5 mmol/L (3.5-5.1); Sodium 142 mmol/L (137-145); Total Bilirubin 0.4 mg/dL (0.2-1.3); Total Protein 7.7 g/dL (6.3-8.2)
[2018-07-22 16:09] VITALS: BP 136/74; PULSE 74; RESP 16; TEMP 98
== END 2018-07-22 16:08 | disposition home or self-care (01) ==
LOC: EC 13:43
DX: R10.10 Upper abdominal pain, unspecified (principal); R11.0 Nausea; E11.43 Type 2 diabetes mellitus with diabetic autonomic (poly)neuropathy; K31.84 Gastroparesis; E11.42 Type 2 diabetes mellitus with diabetic polyneuropathy; E06.3 Autoimmune thyroiditis; Z88.1 Allergy status to other antibiotic agents; Z88.2 Allergy status to sulfonamides; Z88.7 Allergy status to serum and vaccine; Z88.8 Allergy status to other drugs, medicaments and biological substances; Z91.048 Other nonmedicinal substance allergy status; Z79.01 Long term (current) use of anticoagulants; Z79.4 Long term (current) use of insulin; Z79.899 Other long term (current) drug therapy; Z86.73 Personal history of transient ischemic attack (TIA), and cerebral infarction without residual deficits; Z86.718 Personal history of other venous thrombosis and embolism; Z86.79 Personal history of other diseases of the circulatory system; Z86.69 Personal history of other diseases of the nervous system and sense organs; Z86.14 Personal history of Methicillin resistant Staphylococcus aureus infection
CPT/HCPCS: 36415; 80053; 82150; 83690; 85025; 81001; 81025; 99284; 96374; 96375; 96361; J2405

== ENCOUNTER 2018-08-19 13:42 | Emergency (ER) | payer MEDICARE, OTHER ==
[2018-08-19] MEDS ORDERED: KETOROLAC 30 MG/ML 1 ML VIAL IVP STA (14:13)
[2018-08-19] MEDS ORDERED: SODIUM CHLORIDE 0.9% 1,000 ML IV ONE (14:13)
[2018-08-19] MEDS ORDERED: ONDANSETRON 4 MG/2 ML VIAL IVP STA (14:15)
[2018-08-19 15:37] LABS: HCG,Qualitative Serum Not Detected
[2018-08-19 15:39] LABS: ALT 33 U/L (9-52); AST 33 U/L (14-36); Albumin 4.4 g/dL (3.5-5.0); Alkaline Phosphatase 88 U/L (38-126); Anion Gap 14 mmol/L; Blood Urea Nitrogen 8 mg/dL (7-17); Carbon Dioxide 19 mmol/L (22-30); Chloride 106 mmol/L (98-107); Glucose 133 mg/dL (74-99); Lipase 83 U/L (23-300); Potassium 4.2 mmol/L (3.5-5.1); Sodium 139 mmol/L (137-145); Total Bilirubin 0.4 mg/dL (0.2-1.3); Total Protein 7.1 g/dL (6.3-8.2)
[2018-08-19 15:41] LABS: Basophils % (A) 0 %; Eosinophils # (A) 0.2 k/uL (0-0.7); Eosinophils % (A) 2 %; HGB 12.6 gm/dL (11.4-16.0); Lymphocytes # (A) 1.5 k/uL (1.0-4.8); Lymphocytes % (A) 13 %; MCH 27.6 pg (25.0-35.0); MCHC 31.4 g/dL (31.0-37.0); MCV 87.9 fL (80.0-100.0); Mean Platelet Volume 6.8; Monocytes # (A) 0.5 k/uL (0-1.0); Monocytes % (A) 5 %; Neutrophils # (A) 8.7 k/uL (1.3-7.7); Neutrophils % (A) 79 %; Platelet Count 340 k/uL (150-450); RBC 4.55 m/uL (3.80-5.40); RDW 14.6 % (11.5-15.5)
[2018-08-19 16:29] LABS: Appearance,Urine Clear (Clear); Bilirubin,Urine Negative (Negative); Blood,Urine Negative (Negative); Color,Urine Yellow; Glucose,Urine (UA) Negative (Negative); Ketones,Urine Negative (Negative); Leukocyte Esterase,Urine Negative (Negative); Nitrite,Urine Negative (Negative); Protein,Urine Negative (Negative); Specific Gravity,Urine 1.012 (1.001-1.035); Urobilinogen,Urine <2.0 mg/dL (<2.0)
--- NOTE | 2018-08-19 17:20 | US ---
EXAMINATION TYPE: US abdomen complete DATE OF EXAM: 08/19/2018 COMPARISON: CT & US CLINICAL HISTORY: Pain. Severe RUQ pain per patient EXAM MEASUREMENTS: Liver Length: 19.6 cm Gallbladder Wall: 0.2 cm CBD: 0.4 cm Spleen: 12.3 cm Right Kidney: 12.4 x 4.3 x 5.4 cm Left Kidney: 12.4 x 5.6 x 6.7 cm Pancreas: visualized portions wnl Liver: enlarged, difficult to penetrate Gallbladder: No stones seen Evidence for sonographic Harris's sign: Yes CBD: wnl Spleen: wnl Right Kidney: No hydronephrosis or masses seen Left Kidney: No hydronephrosis or masses seen Upper IVC: wnl Abd Aorta: wnl IMPRESSION: 1. No acute abnormality. 2. Hepatomegaly
[2018-08-19] MEDS ORDERED: HYDROcodone/APAP 10-325MG 1 EACH TAB PO ONE (18:01)
--- NOTE | 2018-08-19 19:23 | CT ---
EXAMINATION TYPE: CT abdomen pelvis w con DATE OF EXAM: 08/19/2018 COMPARISON: 06/10/2018 INDICATION: Right abdominal pain DLP: 1881.9 mGycm, Automated exposure control for dose reduction was used. CONTRAST: 100 mL of Isovue 300. Study performed without Oral Contrast TECHNIQUE: Axial images were obtained from above the diaphragm to the pubic rami in the axial plane a t 5 mm thick sections. Reconstructed images are reviewed on the computer in the coronal plane. FINDINGS: Limited CT sections are obtained the lung bases. The lung bases are clear. CT ABDOMEN: Liver: Mild fatty infiltration is within the liver. Spleen: 0.4 cm cyst may be within the spleen Pancreas: Normal Adrenal glands: The adrenal glands are normal. Gallbladder: Normal Kidneys: No masses are evident. No hydronephrosis is present. 2 small cysts at the anterior inferio r pole left kidney measuring 0.9-1.1 cm. Delayed images were obtained through the kidneys, which rem ain unremarkable. Aorta: Normal Inferior vena cava: Normal. CT PELVIS: Loops of bowel within the abdomen and pelvis are normal. Study is without oral contrast limiting the evaluation. Appendix: Normal. Appendix is wrapped around the terminal ileum. Urinary bladder: Normal. Genitourinary structures: Uterus is normal. Adnexal regions are clear. No free fluid is within the pe lvis. Osseous structures: No suspicious lytic or sclerotic lesions. Vacuum phenomena sacroiliac joints. IMPRESSIONS: 1. Mild fatty infiltration liver. 2. Suspected cysts on the spleen and left kidney.
[2018-08-19 19:34] VITALS: BP 151/93; PULSE 110; RESP 16; TEMP 99.4
--- NOTE | 2018-08-19 19:45 | ED ---
Abdominal Pain HPI - General Chief Complaint: Abdominal Pain Stated Complaint: Abd pain Time Seen by Provider: 08/19/18 14:07 Source: patient Mode of arrival: wheelchair Limitations: no limitations - History of Present Illness Initial Comments: Patient is a 38-year-old female who presents with a CC of right flank / RUQ pain that started last night. she cannot identify an inciting incident. She states that her pain is sharp in nature. There are no exacerbating or alleviating factors. Patient states that she got some relief using heat last night. Patient denies any chest pain, shortness of breath. She admits to nausea but no vomiting. She had an abnormal HIDA scan in the past but has not had her gallbladder removed. - Related Data Home Medications Medication Instructions Recorded Confirmed Rivaroxaban [Xarelto] 20 mg PO DAILY 03/09/17 08/19/18 tiZANidine [Zanaflex] 8 mg PO HS 03/09/17 08/19/18 Metoclopramide [Reglan] 10 mg PO ACHS 07/29/17 08/19/18 Trimethobenzamide HCl [Tigan] 300 mg PO TID PRN 09/25/17 08/19/18 Metoprolol Succinate (ER) [Toprol 100 mg PO DAILY 10/24/17 08/19/18 XL] Ranitidine HCl 150 mg PO BID 12/17/17 08/19/18 Insulin Glargine [Lantus] 35 unit SQ HS 03/15/18 08/19/18 Losartan [Cozaar] 50 mg PO DAILY 03/15/18 08/19/18 Cyanocobalamin (Vitamin B-12) 2,000 mcg PO DAILY 05/23/18 08/19/18 [Vitamin B-12] Insulin Lispro [humaLOG Kwikpen] See Protocol SQ ACHS 05/23/18 08/19/18 Levothyroxine Sodium 250 mcg PO DAILY 05/23/18 08/19/18 Loratadine [Claritin] 10 mg PO DAILY 05/23/18 08/19/18 Ondansetron [Zofran ODT] 8 mg PO Q6H PRN 05/23/18 08/19/18 Topiramate [Topamax] 75 mg PO BID 05/23/18 08/19/18 Butalb/APAP/Caff 50-325-40Mg 1 tab PO Q8H PRN 06/11/18 08/19/18 [Fioricet 50-325-40] traMADol HCL [Ultram] 50 mg PO Q8H PRN 06/19/18 08/19/18 Cranberry Fruit Concentrate [Azo 500 mg PO TID PRN 07/03/18 08/19/18 Cranberry] Cholecalciferol (Vitamin D3) 2,000 unit PO DAILY 08/18/18 08/19/18 [Vitamin D3] Fenofibrate 120 mg PO DAILY 08/18/18 08/19/18 Previous Rx's Medication Instructions Recorded tiZANidine [Zanaflex] 2 mg PO DAILY 3 Days #3 tab 05/30/18 Nitrofurantoin Monohyd/M-Cryst 100 mg PO Q12HR #14 cap 07/03/18 [Macrobid] Allergies Allergy/AdvReac Type Severity Reaction Status Date / Time barium sulfate Allergy Anaphylaxis Verified 08/19/18 13:58 diphtheria, pertussis, Allergy Unknown Verified 08/19/18 13:58 tetanus vacc doxepin [Doxepin] Allergy Anaphylaxis Verified 08/19/18 13:58 ephedrine Allergy Unknown Verified 08/19/18 13:58 ertapenem [From Invanz] Allergy Rash/Hives Verified 08/19/18 13:58 influenza virus vaccine, Allergy Anaphylaxis Verified 08/19/18 13:58 specific [Influenza Virus Vacc,Specific] promethazine HCl Allergy Anaphylaxis Verified 08/19/18 13:58 [From Phenergan] doxycycline AdvReac Nausea & Verified 08/19/18 13:58 Vomiting & Diarrhea Pertussis Vaccines AdvReac fever/seizu Verified 08/19/18 13:58 re pseudoephedrine AdvReac Chest Pain Verified 08/19/18 13:58 pseudoephedrine HCl AdvReac Chest Pain Verified 08/19/18 13:58 [From Sudafed] sulfamethoxazole AdvReac Nausea & Verified 08/19/18 13:58 [From Bactrim] Vomiting trimethoprim [From Bactrim] AdvReac Nausea & Verified 08/19/18 13:58 Vomiting Review of Systems ROS Statement: Those systems with pertinent positive or pertinent negative responses have been documented in the HPI. ROS Other: All systems not noted in ROS Statement are negative. Gastrointestinal: Reports: nausea Past Medical History Past Medical History: Chest Pain / Angina, CVA/TIA, Diabetes Mellitus, Deep Vein Thrombosis (DVT), Neurologic Disorder, Syncope, Thyroid Disorder Additional Past Medical History / Comment(s): "STROKE LIKE EPISODE D/T MITOCHRONDIAL DISEASE HAD WORK UP DONE AT [facility]. WEARS A BRACE ON LT ANKLE AND LT WRIST".Dysautonomia-progressive neurological disorder, lupus/LUPUS ANTICOAGULANTS, 2004 CVA without residual, ana maria's disease, lymphedema Lt arm d/t DVTs , v-tach, pituitary microadenoma. "mitochondrial disease". patent foramen ovale, narcolepsy, gastropareis, IDDM type II, uti's, falls, orthostatic hypotension/syncope,migraines with hemiplegia, pernicious anemia, polycystic ovarian syndrome, neuropathy bilateral legs/fee-mild, uterine ablation August 2015/patient no longer has periods-had uterine ablation uti's. , midline access for fluids-current access issues has contacted dr quigley. History of Any Multi-Drug Resistant Organisms: ESBL, MRSA Date of last positivie culture/infection: 03/09/17 MRSA/ 05/17/18 ESBL MDRO Source:: MRSA LEFT ARM,/ESBL URINE ECOLI Past Surgical History: Ablation, Uterine Ablation Additional Past Surgical History / Comment(s): colonscopy/egd, angie, stress test. PORT-A -CATH INSERTION 04-28-18 Past Anesthesia/Blood Transfusion Reactions: No Reported Reaction Additional Past Anesthesia/Blood Transfusion Reaction / Comment(s): patient states "It takes a lot of anesthesia for my body to react". Pt has received blood in past without reaction. Past Psychological History: Bipolar, Depression Smoking Status: Never smoker Past Alcohol Use History: None Reported Past Drug Use History: None Reported - Past Family History Brother(s) Family Medical History: Diabetes Mellitus, Hyperlipidemia, Hypertension Additional Family Medical History / Comment(s): Patient states she has 1 brother with no major medical problems. Father Family Medical History: Diabetes Mellitus, Hyperlipidemia, Hypertension Additional Family Medical History / Comment(s): DAD IS 70 YEARS OLD. Patient states she does not have any contact with her father and does not know his medical history. Mother Family Medical History: Blood Disorder, Chest Pain / Angina, CVA/TIA, Hyperlipidemia, Hypertension Additional Family Medical History / Comment(s): AGE 62 HAS LUPUS, blood pressure swings high to low, antiphospholipid antibody syndrome General Exam Limitations: no limitations General appearance: alert, in no apparent distress Head exam: Present: atraumatic, normocephalic Eye exam: Present: normal appearance ENT exam: Present: normal exam, mucous membranes moist Neck exam: Present: normal inspection Respiratory exam: Present: normal lung sounds bilaterally. Absent: respiratory distress, wheezes Cardiovascular Exam: Present: regular rate, normal rhythm GI/Abdominal exam: Present: soft, tenderness (Right upper quadrant tenderness). Absent: distended Rectal exam: Present: deferred Extremities exam: Present: normal inspection Back exam: Present: normal inspection, CVA tenderness (R). Absent: CVA tenderness (L) Neurological exam: Present: alert, oriented X3 Psychiatric exam: Present: normal affect, normal mood Skin exam: Present: warm, dry, intact Course Vital Signs 08/19/18 08/19/18 08/19/18 13:56 16:35 19:32 Temperature 99.6 F 99.4 F Pulse Rate 110 H 101 H 110 H Respiratory 18 18 16 Rate Blood Pressure 165/110 139/79 151/93 O2 Sat by Pulse 97 93 L 95 Oximetry Medical Decision Making - Medical Decision Making Patient presents with a chief complaint of right upper quadrant pain and flank pain. On initial evaluation, vitals are stable, patient is in no acute distress. Patient to be evaluated basic labs including liver profile. Labs are unremarkable, ultrasound of the abdomen shows no acute abnormalities. On reevaluation, patient still expressing pain. She was given a dose of [place] in the emergency department. Patient went for a subsequent computed tomography scan with IV contrast. Computed tomography scan shows no acute abnormalities. On reevaluation, the patient states that she is still having pain. She continues to be in no distress. I discussed the lab results and that both scans were negative. At this time, patient is agreeable and stable for discharge. She was instructed to follow up with primary care 1-2 days, return to the emergency department if symptoms worsen or change. She asked if her gallbladder may be causing these issues. In light of her abnormal HIDA scan, this is a possibility however at this time there are no elevation in liver enzymes or bilirubins. Patient was instructed to follow up with general surgery. - Lab Data Result diagrams: 08/19/18 15:10 08/19/18 15:10 Lab Results 08/19/18 08/19/18 08/19/18 Range/Units 15:10 15:10 15:30 WBC 11.0 H (3.8-10.6) k/uL RBC 4.55 (3.80-5.40) m/uL Hgb 12.6 (11.4-16.0) gm/dL Hct 40.0 (34.0-46.0) % MCV 87.9 (80.0-100.0) fL MCH 27.6 (25.0-35.0) pg MCHC 31.4 (31.0-37.0) g/dL RDW 14.6 (11.5-15.5) % Plt Count 340 (150-450) k/uL Neutrophils % 79 % Lymphocytes % 13 % Monocytes % 5 % Eosinophils % 2 % Basophils % 0 % Neutrophils # 8.7 H (1.3-7.7) k/uL Lymphocytes # 1.5 (1.0-4.8) k/uL Monocytes # 0.5 (0-1.0) k/uL Eosinophils # 0.2 (0-0.7) k/uL Basophils # 0.0 (0-0.2) k/uL Sodium 139 (137-145) mmol/L Potassium 4.2 (3.5-5.1) mmol/L Chloride 106 (98-107) mmol/L Carbon Dioxide 19 L (22-30) mmol/L Anion Gap 14 mmol/L BUN 8 (7-17) mg/dL Creatinine 0.53 (0.52-1.04) mg/dL Est GFR (CKD-EPI)AfAm >90 (>60 ml/min/1.73 sqM) Est GFR (CKD-EPI)NonAf >90 (>60 ml/min/1.73 sqM) Glucose 133 H (74-99) mg/dL Calcium 10.0 (8.4-10.2) mg/dL Total Bilirubin 0.4 (0.2-1.3) mg/dL AST 33 (14-36) U/L ALT 33 (9-52) U/L Alkaline Phosphatase 88 (38-126) U/L Total Protein 7.1 (6.3-8.2) g/dL Albumin 4.4 (3.5-5.0) g/dL Lipase 83 (23-300) U/L HCG, Qual Not Detected Urine Color Yellow Urine Appearance Clear (Clear) Urine pH 6.0 (5.0-8.0) Ur Specific [place] 1.012 (1.001-1.035) Urine Protein Negative (Negative) Urine Glucose (UA) Negative (Negative) Urine Ketones Negative (Negative) Urine Blood Negative (Negative) Urine Nitrite Negative (Negative) Urine Bilirubin Negative (Negative) Urine Urobilinogen <2.0 (<2.0) mg/dL Ur Leukocyte Esterase Negative (Negative) Disposition Clinical Impression: Abdominal pain Disposition: HOME SELF-CARE Condition: Good Instructions: Abdominal Pain (ED) Is patient prescribed a controlled substance at d/c from ED?: No Referrals: Fran Thompson MD [Primary Care Provider] - 1-2 days
== END 2018-08-19 19:58 | disposition home or self-care (01) ==
LOC: EC 13:42
DX: R10.11 Right upper quadrant pain (principal); R11.0 Nausea; E11.40 Type 2 diabetes mellitus with diabetic neuropathy, unspecified; Z79.4 Long term (current) use of insulin; Z79.01 Long term (current) use of anticoagulants; Z79.899 Other long term (current) drug therapy; Z88.8 Allergy status to other drugs, medicaments and biological substances; Z88.7 Allergy status to serum and vaccine; Z88.2 Allergy status to sulfonamides; Z88.1 Allergy status to other antibiotic agents; Z86.718 Personal history of other venous thrombosis and embolism; Z86.73 Personal history of transient ischemic attack (TIA), and cerebral infarction without residual deficits
CPT/HCPCS: 36415; 80053; 83690; 85025; 81003; 84703; 76700; 74177; 99284; 96374; 96375; 96361 ×4; J2405; J1885; Q9967

== ENCOUNTER → 2018-08-30 | Outpatient (CLI) | payer MEDICARE, OTHER ==
--- NOTE | 2018-08-30 15:57 | US ---
EXAMINATION TYPE: US venous doppler duplex UE LT DATE OF EXAM: 08/30/2018 COMPARISON: US 2018 CLINICAL HISTORY: R22.32 Localized swelling, mass and lump, left upp. Left arm swelling, patient on b lood thinners. SIDE PERFORMED: Left Technically difficult and limited study due to patient body habitus and small veins. Left Arm: Visualized portions appear negative for DVT Grayscale, color doppler, spectral doppler imaging performed of the deep veins of the left upper extr emity. There is normal flow, compressibility and vascular waveforms. IMPRESSION: No sonographic evidence of deep venous thrombosis within the left upper extremity.
== END | disposition home or self-care (01) ==
LOC: RADUSWWP 14:30
PROVIDERS: ATTEND Internal Medicine
DX: R22.32 Localized swelling, mass and lump, left upper limb (principal)

== ENCOUNTER 2018-09-02 04:22 | Observation (INO) | payer MEDICARE, OTHER ==
--- NOTE | 2018-09-02 04:42 | ED ---
Psych HPI - General Stated Complaint: MENTAL HEALTH Time Seen by Provider: 09/02/18 04:35 - History of Present Illness Initial Comments: Francisca is a 38-year-old female with extensive past medical history presents the emergency department today for evaluation of suicidal thoughts. Patient states that this evening she had a handful of pills including muscle relaxers and her cardiac medications which she intended to taken an overdose to end her life. She states that her mother woke up and came to her room this prompted her not to take the pills evidence that she Dr. mother and agreed to the ER for evaluation. Patient reports she has a history of depression, she states that she called [facility] last week but they were unable to get her an appointment. She states that she's been feeling progressively more depressed and today became suicidal. Patient has a history of multiple suicide attempts by overdose in the past. - Related Data Home Medications Medication Instructions Recorded Confirmed Rivaroxaban [Xarelto] 20 mg PO DAILY 03/09/17 08/19/18 tiZANidine [Zanaflex] 8 mg PO HS 03/09/17 08/19/18 Metoclopramide [Reglan] 10 mg PO ACHS 07/29/17 08/19/18 Trimethobenzamide HCl [Tigan] 300 mg PO TID PRN 09/25/17 08/19/18 Metoprolol Succinate (ER) [Toprol 100 mg PO DAILY 10/24/17 08/19/18 XL] Ranitidine HCl 150 mg PO BID 12/17/17 08/19/18 Insulin Glargine [Lantus] 35 unit SQ HS 03/15/18 08/19/18 Losartan [Cozaar] 50 mg PO DAILY 03/15/18 08/19/18 Cyanocobalamin (Vitamin B-12) 2,000 mcg PO DAILY 05/23/18 08/19/18 [Vitamin B-12] Insulin Lispro [humaLOG Kwikpen] See Protocol SQ [facility] 05/23/18 08/19/18 Levothyroxine Sodium 250 mcg PO DAILY 05/23/18 08/19/18 Loratadine [Claritin] 10 mg PO DAILY 05/23/18 08/19/18 Ondansetron [Zofran ODT] 8 mg PO Q6H PRN 05/23/18 08/19/18 Topiramate [Topamax] 75 mg PO BID 05/23/18 08/19/18 Butalb/APAP/Caff 50-325-40Mg 1 tab PO Q8H PRN 06/11/18 08/19/18 [Fioricet 50-325-40] traMADol HCL [Ultram] 50 mg PO Q6HR PRN 06/19/18 09/01/18 Cranberry Fruit Concentrate [Azo 500 mg PO TID PRN 07/03/18 08/19/18 Cranberry] Cholecalciferol (Vitamin D3) 2,000 unit PO DAILY 08/18/18 08/19/18 [Vitamin D3] Fenofibrate 160 mg PO DAILY 09/01/18 09/01/18 Modafinil [Provigil] 200 mg PO DAILY 09/01/18 09/01/18 Previous Rx's Medication Instructions Recorded tiZANidine [Zanaflex] 2 mg PO DAILY 3 Days #3 tab 05/30/18 Nitrofurantoin Monohyd/M-Cryst 100 mg PO Q12HR #14 cap 07/03/18 [Macrobid] Allergies Allergy/AdvReac Type Severity Reaction Status Date / Time barium sulfate Allergy Anaphylaxis Verified 09/01/18 13:04 diphtheria, pertussis, Allergy Unknown Verified 09/01/18 13:04 tetanus vacc doxepin [Doxepin] Allergy Anaphylaxis Verified 09/01/18 13:04 ephedrine Allergy Unknown Verified 09/01/18 13:04 ertapenem [From Invanz] Allergy Rash/Hives Verified 09/01/18 13:04 influenza virus vaccine, Allergy Anaphylaxis Verified 09/01/18 13:04 specific [Influenza Virus Vacc,Specific] promethazine HCl Allergy Anaphylaxis Verified 09/01/18 13:04 [From Phenergan] doxycycline AdvReac Nausea & Verified 09/01/18 13:04 Vomiting & Diarrhea Pertussis Vaccines AdvReac fever/seizu Verified 09/01/18 13:04 re pseudoephedrine AdvReac Chest Pain Verified 09/01/18 13:04 pseudoephedrine HCl AdvReac Chest Pain Verified 09/01/18 13:04 [From Sudafed] sulfamethoxazole AdvReac Nausea & Verified 09/01/18 13:04 [From Bactrim] Vomiting trimethoprim [From Bactrim] AdvReac Nausea & Verified 09/01/18 13:04 Vomiting Review of Systems ROS Statement: Those systems with pertinent positive or pertinent negative responses have been documented in the HPI. ROS Other: All systems not noted in ROS Statement are negative. Past Medical History Past Medical History: Chest Pain / Angina, CVA/TIA, Diabetes Mellitus, Deep Vein Thrombosis (DVT), Neurologic Disorder, Syncope, Thyroid Disorder Additional Past Medical History / Comment(s): "STROKE LIKE EPISODE D/T MITOCHRONDIAL DISEASE HAD WORK UP DONE AT [facility]. WEARS A BRACE ON LT ANKLE AND LT WRIST".Dysautonomia-progressive neurological disorder, lupus/LUPUS ANTICOAGULANTS, 2003 CVA without residual, ana maria's disease, lymphedema Lt arm d/t DVTs , v-tach, pituitary microadenoma. "mitochondrial disease". patent foramen ovale, narcolepsy, gastropareis, IDDM type II, uti's, falls, orthostatic hypotension/syncope,migraines with hemiplegia, pernicious anemia, polycystic ovarian syndrome, neuropathy bilateral legs/fee-mild, uterine ablation August 2015/patient no longer has periods-had uterine ablation uti's. , midline access for fluids-current access issues has contacted dr quigley. History of Any Multi-Drug Resistant Organisms: ESBL, MRSA Date of last positivie culture/infection: 03/09/17 MRSA/ 05/17/18 ESBL MDRO Source:: MRSA LEFT ARM,/ESBL URINE ECOLI Past Surgical History: Ablation, Uterine Ablation Additional Past Surgical History / Comment(s): colonscopy/egd, angie, stress test. PORT-A -CATH INSERTION 04-28-18 Past Anesthesia/Blood Transfusion Reactions: No Reported Reaction Additional Past Anesthesia/Blood Transfusion Reaction / Comment(s): patient states "It takes a lot of anesthesia for my body to react". Pt has received blood in past without reaction. Smoking Status: Never smoker - Past Family History Brother(s) Family Medical History: Diabetes Mellitus, Hyperlipidemia, Hypertension Additional Family Medical History / Comment(s): Patient states she has 1 brother with no major medical problems. Father Family Medical History: Diabetes Mellitus, Hyperlipidemia, Hypertension Additional Family Medical History / Comment(s): DAD IS 70 YEARS OLD. Patient states she does not have any contact with her father and does not know his medical history. Mother Family Medical History: Blood Disorder, Chest Pain / Angina, CVA/TIA, Hyperlipidemia, Hypertension Additional Family Medical History / Comment(s): AGE 62 HAS LUPUS, blood pressure swings high to low, antiphospholipid antibody syndrome General Exam - General Exam Comments Initial Comments: Physical Exam GENERAL: Patient is well-developed and well-nourished. HENT: Normocephalic, Atraumatic. EYES: PERRL, EOMI PULMONARY: Unlabored respirations. CARDIOVASCULAR: RRR ABDOMEN: non-distended SKIN: Pale, no injuries : Deferred NEUROLOGIC: Patient is alert and oriented x3. Moving all extremities spontaneously MUSCULOSKELETAL: poor tone, left sided weakness PSYCHIATRIC: Depressed, suicidal Limitations: no limitations Course Vital Signs 09/02/18 04:35 Temperature 75 F L Pulse Rate 75 Respiratory 16 Rate Blood Pressure 112/65 O2 Sat by Pulse 98 Oximetry Medical Decision Making - Medical Decision Making Patient was seen and evaluated, history was obtained from the patient Patient has a very complex medical history, complex psychiatric history, history of depression with multiple suicide attempts in the past Reports she is feeling suicidal, contemplated suicide by overdose today that, has access to multiple medications which could result in fatal overdose Patient was evaluated by [facility], they recommend admission psychiatric evaluation. However the patient has multiple medical comorbidities and has not been accepted to any outside psychiatric facilities. At this time there are no beds available in our hospital for psychiatric evaluation, they recommend medical observation with a consult to psychiatry. Patient care was discussed with [facility] physician Dr. Manuel who accepts the patient to observation for medical management of multiple comorbidities and consult to psychiatry. - Lab Data Result diagrams: 09/02/18 06:41 09/02/18 06:41 Lab Results 09/02/18 09/02/18 09/02/18 Range/Units 04:41 04:41 06:41 WBC (3.8-10.6) k/uL RBC (3.80-5.40) m/uL Hgb (11.4-16.0) gm/dL Hct (34.0-46.0) % MCV (80.0-100.0) fL MCH (25.0-35.0) pg MCHC (31.0-37.0) g/dL RDW (11.5-15.5) % Plt Count (150-450) k/uL Neutrophils % % Lymphocytes % % Monocytes % % Eosinophils % % Basophils % % Neutrophils # (1.3-7.7) k/uL Lymphocytes # (1.0-4.8) k/uL Monocytes # (0-1.0) k/uL Eosinophils # (0-0.7) k/uL Basophils # (0-0.2) k/uL PT (9.0-12.0) sec INR (<1.2) APTT (22.0-30.0) sec Sodium 141 (137-145) mmol/L Potassium 4.2 (3.5-5.1) mmol/L Chloride 109 H (98-107) mmol/L Carbon Dioxide 19 L (22-30) mmol/L Anion Gap 13 mmol/L BUN 14 (7-17) mg/dL Creatinine 0.74 (0.52-1.04) mg/dL Est GFR (CKD-EPI)AfAm >90 (>60 ml/min/1.73 sqM) Est GFR (CKD-EPI)NonAf >90 (>60 ml/min/1.73 sqM) Glucose 209 H (74-99) mg/dL Calcium 9.9 (8.4-10.2) mg/dL Total Bilirubin 0.2 (0.2-1.3) mg/dL AST 17 (14-36) U/L ALT 21 (9-52) U/L Alkaline Phosphatase 91 (38-126) U/L Total Protein 6.9 (6.3-8.2) g/dL Albumin 4.2 (3.5-5.0) g/dL Urine Color Yellow Urine Appearance Cloudy H (Clear) Urine pH 5.5 (5.0-8.0) Ur Specific [place] 1.022 (1.001-1.035) Urine Protein Trace H (Negative) Urine Glucose (UA) Negative (Negative) Urine Ketones Negative (Negative) Urine Blood Negative (Negative) Urine Nitrite Negative (Negative) Urine Bilirubin Negative (Negative) Urine Urobilinogen <2.0 (<2.0) mg/dL Ur Leukocyte Esterase Moderate H (Negative) Urine RBC 6 H (0-5) /hpf Ur Squamous Epith Cells 4 (0-4) /hpf Calcium Oxalate Crystal Rare H (None) /hpf Hyaline Casts 6 H (0-2) /lpf Urine Mucus Rare H (None) /hpf Salicylates <1.0 mg/dL Urine Opiates Screen Not Detected (NotDetected) Ur Oxycodone Screen Not Detected (NotDetected) Urine Methadone Screen Not Detected (NotDetected) Ur Propoxyphene Screen Not Detected (NotDetected) Acetaminophen <10.0 ug/mL Ur Barbiturates Screen Detected H (NotDetected) U Tricyclic Antidepress Not Detected (NotDetected) Ur Phencyclidine Scrn Not Detected (NotDetected) Ur Amphetamines Screen Not Detected (NotDetected) U Methamphetamines Scrn Detected H (NotDetected) U Benzodiazepines Scrn Not Detected (NotDetected) Urine Cocaine Screen Not Detected (NotDetected) U Marijuana (THC) Screen Not Detected (NotDetected) 09/02/18 09/02/18 Range/Units 06:41 06:51 WBC 8.8 (3.8-10.6) k/uL RBC 4.42 (3.80-5.40) m/uL Hgb 12.7 (11.4-16.0) gm/dL Hct 38.1 (34.0-46.0) % MCV 86.2 (80.0-100.0) fL MCH 28.8 (25.0-35.0) pg MCHC 33.4 (31.0-37.0) g/dL RDW 15.0 (11.5-15.5) % Plt Count 341 (150-450) k/uL Neutrophils % 63 % Lymphocytes % 27 % Monocytes % 5 % Eosinophils % 3 % Basophils % 1 % Neutrophils # 5.5 (1.3-7.7) k/uL Lymphocytes # 2.4 (1.0-4.8) k/uL Monocytes # 0.5 (0-1.0) k/uL Eosinophils # 0.3 (0-0.7) k/uL Basophils # 0.1 (0-0.2) k/uL PT 10.3 (9.0-12.0) sec INR 1.1 (<1.2) APTT 28.8 (22.0-30.0) sec Sodium (137-145) mmol/L Potassium (3.5-5.1) mmol/L Chloride (98-107) mmol/L Carbon Dioxide (22-30) mmol/L Anion Gap mmol/L BUN (7-17) mg/dL Creatinine (0.52-1.04) mg/dL Est GFR (CKD-EPI)AfAm (>60 ml/min/1.73 sqM) Est GFR (CKD-EPI)NonAf (>60 ml/min/1.73 sqM) Glucose (74-99) mg/dL Calcium (8.4-10.2) mg/dL Total Bilirubin (0.2-1.3) mg/dL AST (14-36) U/L ALT (9-52) U/L Alkaline Phosphatase (38-126) U/L Total Protein (6.3-8.2) g/dL Albumin (3.5-5.0) g/dL Urine Color Urine Appearance (Clear) Urine pH (5.0-8.0) Ur Specific [place] (1.001-1.035) Urine Protein (Negative) Urine Glucose (UA) (Negative) Urine Ketones (Negative) Urine Blood (Negative) Urine Nitrite (Negative) Urine Bilirubin (Negative) Urine Urobilinogen (<2.0) mg/dL Ur Leukocyte Esterase (Negative) Urine RBC (0-5) /hpf Ur Squamous Epith Cells (0-4) /hpf Calcium Oxalate Crystal (None) /hpf Hyaline Casts (0-2) /lpf Urine Mucus (None) /hpf Salicylates mg/dL Urine Opiates Screen (NotDetected) Ur Oxycodone Screen (NotDetected) Urine Methadone Screen (NotDetected) Ur Propoxyphene Screen (NotDetected) Acetaminophen ug/mL Ur Barbiturates Screen (NotDetected) U Tricyclic Antidepress (NotDetected) Ur Phencyclidine Scrn (NotDetected) Ur Amphetamines Screen (NotDetected) U Methamphetamines Scrn (NotDetected) U Benzodiazepines Scrn (NotDetected) Urine Cocaine Screen (NotDetected) U Marijuana (THC) Screen (NotDetected) Disposition Clinical Impression: Suicidal behavior Disposition: ADMITTED IP TO THIS [facility] Referrals: Fran Thompson MD [Primary Care Provider] - 1-2 days
[2018-09-02 05:09] LABS: Appearance,Urine Cloudy (Clear); Bilirubin,Urine Negative (Negative); Blood,Urine Negative (Negative); Calcium Oxalate Crystals,Urine Rare /hpf; Color,Urine Yellow; Glucose,Urine (UA) Negative (Negative); Hyaline Casts,Urine 6 /lpf (0-2); Ketones,Urine Negative (Negative); Leukocyte Esterase,Urine Moderate (Negative); Mucus,Urine Rare /hpf; Nitrite,Urine Negative (Negative); PH, Urine 5.5 (5.0-8.0); Protein,Urine Trace (Negative); RBC,Urine 6 /hpf (0-5); Specific Gravity,Urine 1.022 (1.001-1.035); Squamous Epithelial Cell,Urine 4 /hpf (0-4); Urobilinogen,Urine <2.0 mg/dL (<2.0)
[2018-09-02 05:15] LABS: Cocaine Screen,Urine Not Detected (NotDetected); Phencyclidine Screen,Urine Not Detected (NotDetected); Urn Cannabinoid Scrn Not Detected (NotDetected)
[2018-09-02 05:16] LABS: Amphetamine Screen,Urine Not Detected (NotDetected); Barbiturate Screen,Urine Detected (NotDetected); Benzodiazepines Screen,Urine Not Detected (NotDetected); Methadone Screen, Urine Not Detected (NotDetected); Opiate Screen,Urine Not Detected (NotDetected); Oxycodone Screen, Urine Not Detected (NotDetected); Tricyclic Antidepressant,Urine Not Detected (NotDetected)
[2018-09-02] MEDS ORDERED: NALOXONE 0.4 MG/ML 1 ML VIAL IV PRN (06:10)
[2018-09-02 06:48] LABS: Basophils # (A) 0.1 k/uL (0-0.2); Basophils % (A) 1 %; Eosinophils # (A) 0.3 k/uL (0-0.7); Eosinophils % (A) 3 %; HCT 38.1 % (34.0-46.0); HGB 12.7 gm/dL (11.4-16.0); Lymphocytes # (A) 2.4 k/uL (1.0-4.8); Lymphocytes % (A) 27 %; MCH 28.8 pg (25.0-35.0); MCHC 33.4 g/dL (31.0-37.0); MCV 86.2 fL (80.0-100.0); Mean Platelet Volume 6.8; Monocytes # (A) 0.5 k/uL (0-1.0); Monocytes % (A) 5 %; Neutrophils # (A) 5.5 k/uL (1.3-7.7); Neutrophils % (A) 63 %; Platelet Count 341 k/uL (150-450); RBC 4.42 m/uL (3.80-5.40); WBC 8.8 k/uL (3.8-10.6)
[2018-09-02 06:59] LABS: ALT 21 U/L (9-52); AST 17 U/L (14-36); Acetaminophen <10.0 ug/mL; Albumin 4.2 g/dL (3.5-5.0); Alkaline Phosphatase 91 U/L (38-126); Anion Gap 13 mmol/L; Blood Urea Nitrogen 14 mg/dL (7-17); Calcium 9.9 mg/dL (8.4-10.2); Carbon Dioxide 19 mmol/L (22-30); Chloride 109 mmol/L (98-107); Glucose 209 mg/dL (74-99); Potassium 4.2 mmol/L (3.5-5.1); Salicylate <1.0 mg/dL; Sodium 141 mmol/L (137-145); Total Bilirubin 0.2 mg/dL (0.2-1.3); Total Protein 6.9 g/dL (6.3-8.2)
[2018-09-02 07:09] LABS: INR 1.1 (<1.2); Partial Thromboplastin Time 28.8 sec (22.0-30.0); Prothrombin Time 10.3 sec (9.0-12.0)
[2018-09-02] MEDS ORDERED: LORazepam 1 MG TAB PO STA (07:28)
[2018-09-02] MEDS ORDERED: ACETAMINOPHEN TAB 325 MG TAB PO PRN (10:31)
[2018-09-02] MEDS ORDERED: TRIMETHOBENZAMIDE 300 MG CAP PO PRN (11:59)
--- NOTE | 2018-09-02 12:20 | P.HPIM ---
History of Present Illness H&P Date: 09/02/18 Chief Complaint: suicidal ideation 38-year-old female with PMH of mitochondrial disease, dystonia, dysautonomia, gastroparesis, neurogenic bladder, frequent UTIs, lupus anticoagulant, diabetes mellitus, Ana Maria's, pernicious anemia, history of CVA in the past, multiple DVTs in the past presents to the ED for suicidal ideation. Of note, patient has no medical concerns at this time. She does complain of frequent nausea, especially with meals. She attributes this to her chronic gastroparesis which is being treated with combination of Zofran, Tigan and Reglan. She also complains of loose stool. This started on as watery diarrhea which has progressively been getting better until today. She reports no blood in her stool. She does report a history of antibiotic use in the recent past. She denies any lower extremity swelling, fever, cough, chest pain, shortness of breath, palpitations, any changes in urination. Patient's PCP is Dr. Thompson. She has previously been evaluated for her mitochondrial disease by her greenhouse technician but has been unable to follow-up due to her issues with transportation. Review of Systems All systems: negative Past Medical History Past Medical History: Chest Pain / Angina, CVA/TIA, Diabetes Mellitus, Deep Vein Thrombosis (DVT), Neurologic Disorder, Syncope, Thyroid Disorder Additional Past Medical History / Comment(s): "STROKE LIKE EPISODE D/T MITOCHRONDIAL DISEASE HAD WORK UP DONE AT [facility]. WEARS A BRACE ON LT ANKLE AND LT WRIST".Dysautonomia-progressive neurological disorder, lupus/LUPUS ANTICOAGULANTS, 2004 CVA without residual, ana maria's disease, lymphedema Lt arm d/t DVTs , v-tach, pituitary microadenoma. "mitochondrial disease". patent foramen ovale, narcolepsy, gastropareis, IDDM type II, uti's, falls, orthostatic hypotension/syncope,migraines with hemiplegia, pernicious anemia, polycystic ovarian syndrome, neuropathy bilateral legs/fee-mild, uterine ablation August 2015/patient no longer has periods-had uterine ablation uti's. , midline access for fluids-current access issues has contacted dr quigley. History of Any Multi-Drug Resistant Organisms: ESBL, MRSA Date of last positivie culture/infection: 03/09/17 MRSA/ 05/17/18 ESBL MDRO Source:: MRSA LEFT ARM,/ESBL URINE ECOLI Past Surgical History: Ablation, Uterine Ablation Additional Past Surgical History / Comment(s): colonscopy/egd, angie, stress test. PORT-A -CATH INSERTION 04-28-18 Past Anesthesia/Blood Transfusion Reactions: No Reported Reaction Additional Past Anesthesia/Blood Transfusion Reaction / Comment(s): patient states "It takes a lot of anesthesia for my body to react". Pt has received blood in past without reaction. Smoking Status: Never smoker - Past Family History Brother(s) Family Medical History: Diabetes Mellitus, Hyperlipidemia, Hypertension Additional Family Medical History / Comment(s): Patient states she has 1 brother with no major medical problems. Father Family Medical History: Diabetes Mellitus, Hyperlipidemia, Hypertension Additional Family Medical History / Comment(s): DAD IS 70 YEARS OLD. Patient states she does not have any contact with her father and does not know his medical history. Mother Family Medical History: Blood Disorder, Chest Pain / Angina, CVA/TIA, Hyperlipidemia, Hypertension Additional Family Medical History / Comment(s): AGE 62 HAS LUPUS, blood pressure swings high to low, antiphospholipid antibody syndrome Medications and Allergies Home Medications Medication Instructions Recorded Confirmed Type Rivaroxaban [Xarelto] 20 mg PO DAILY 03/09/17 08/19/18 History tiZANidine [Zanaflex] 8 mg PO HS 03/09/17 08/19/18 History Metoclopramide [Reglan] 10 mg PO [facility] 07/29/17 08/19/18 History Trimethobenzamide HCl [Tigan] 300 mg PO TID PRN 09/25/17 08/19/18 History Metoprolol Succinate (ER) [Toprol 100 mg PO DAILY 10/24/17 08/19/18 History XL] Ranitidine HCl 150 mg PO BID 12/17/17 08/19/18 History Insulin Glargine [Lantus] 35 unit SQ 03/15/18 08/19/18 History Losartan [Cozaar] 50 mg PO DAILY 03/15/18 08/19/18 History Cyanocobalamin (Vitamin B-12) 2,000 mcg PO DAILY 05/23/18 08/19/18 History [Vitamin B-12] Insulin Lispro [humaLOG Kwikpen] See Protocol SQ [facility] 05/23/18 08/19/18 History Levothyroxine Sodium 250 mcg PO DAILY 05/23/18 08/19/18 History Loratadine [Claritin] 10 mg PO DAILY 05/23/18 08/19/18 History Ondansetron [Zofran ODT] 8 mg PO Q6H PRN 05/23/18 08/19/18 History Topiramate [Topamax] 75 mg PO BID 05/23/18 08/19/18 History tiZANidine [Zanaflex] 2 mg PO DAILY 3 Days #3 tab 05/30/18 08/19/18 Rx Butalb/APAP/Caff 50-325-40Mg 1 tab PO Q8H PRN 06/11/18 08/19/18 History [Fioricet 50-325-40] traMADol HCL [Ultram] 50 mg PO Q6HR PRN 06/19/18 09/01/18 History Cranberry Fruit Concentrate [Azo 500 mg PO TID PRN 07/03/18 08/19/18 History Cranberry] Nitrofurantoin Monohyd/M-Cryst 100 mg PO Q12HR #14 cap 07/03/18 08/19/18 Rx [Macrobid] Cholecalciferol (Vitamin D3) 2,000 unit PO DAILY 08/18/18 08/19/18 History [Vitamin D3] Fenofibrate 160 mg PO DAILY 09/01/18 09/01/18 History Modafinil [Provigil] 200 mg PO DAILY 09/01/18 09/01/18 History Allergies Allergy/AdvReac Type Severity Reaction Status Date / Time barium sulfate Allergy Anaphylaxis Verified 09/02/18 11:30 diphtheria, pertussis, Allergy Unknown Verified 09/02/18 11:30 tetanus vacc doxepin [Doxepin] Allergy Anaphylaxis Verified 09/02/18 11:30 ephedrine Allergy Unknown Verified 09/02/18 11:30 ertapenem [From Invanz] Allergy Rash/Hives Verified 09/02/18 11:30 influenza virus vaccine, Allergy Anaphylaxis Verified 09/02/18 11:30 specific [Influenza Virus Vacc,Specific] promethazine HCl Allergy Anaphylaxis Verified 09/02/18 11:30 [From Phenergan] doxycycline AdvReac Nausea & Verified 09/02/18 11:30 Vomiting & Diarrhea Pertussis Vaccines AdvReac fever/seizu Verified 09/02/18 11:30 re pseudoephedrine AdvReac Chest Pain Verified 09/02/18 11:30 pseudoephedrine HCl AdvReac Chest Pain Verified 09/02/18 11:30 [From Sudafed] sulfamethoxazole AdvReac Nausea & Verified 09/02/18 11:30 [From Bactrim] Vomiting trimethoprim [From Bactrim] AdvReac Nausea & Verified 09/02/18 11:30 Vomiting Physical Exam Vitals: Vital Signs Temp Pulse Resp BP Pulse Ox 09/02/18 07:10 99.0 F 78 16 108/56 99 09/02/18 04:35 75 F L 75 16 112/65 98 Intake and Output 09/01/18 09/02/18 09/02/18 22:59 06:59 14:59 Other: Weight 108.862 kg General: [non toxic], [no distress], [appears at stated age] Derm: [warm], [dry] Head: [atraumatic], [normocephalic], [symmetric] Eyes: [EOMI], [no lid lag], [anicteric sclera] Mouth: [no lip lesion], [mucus membranes moist] Cardiovascular: [S1S2 reg], [no murmur], [positive DP pulse bilateral] Lungs: [CTA bilateral], [no rhonchi, no rales] , [no accessory muscle use] Abdominal: [soft], [ nontender to palpation], [no guarding], [no appreciable organomegaly] Ext: [no gross muscle atrophy], [no edema], [no contractures] Neuro: [no focal neuro deficits] Psych: [Alert], [oriented], [appropriate affect] Results CBC & Chem 7: 09/02/18 06:41 09/02/18 06:41 Labs: Abnormal Lab Results - Last 24 Hours (Table) 09/02/18 09/02/18 09/02/18 Range/Units 04:41 04:41 06:41 Chloride 109 H (98-107) mmol/L Carbon Dioxide 19 L (22-30) mmol/L Glucose 209 H (74-99) mg/dL TSH 0.039 L (0.465-4.680) mIU/L Urine Appearance Cloudy H (Clear) Urine Protein Trace H (Negative) Ur Leukocyte Esterase Moderate H (Negative) Urine RBC 6 H (0-5) /hpf Calcium Oxalate Crystal Rare H (None) /hpf Hyaline Casts 6 H (0-2) /lpf Urine Mucus Rare H (None) /hpf Ur Barbiturates Screen Detected H (NotDetected) U Methamphetamines Scrn Detected H (NotDetected) Thrombosis Risk Factor Assmnt - DVT/VTE Prophylaxis DVT/VTE Prophylaxis: Pharmacologic Prophylaxis ordered - Choose All That Apply Other Risk Factors: Yes Each Risk Factor Represents 3 Points: Positive Lupus Anticoagulant Thrombosis Risk Factor Assessment Total Risk Factor Score: 3 Thrombosis Risk Factor Assessment Level: Moderate Risk Assessment and Plan Assessment: Assessment and Plan 1. Suicidal ideation: Reports of plan to OD. 1:1 sitter. UDS + amphetamines and barbiturates. Suicide precautions. FU Psyc consult 2. Neurogenic bladder with frequent UTIs: UA shows moderate LE but patient has no dysuria. Monitor Ins and Outs. Might benefit from daily Macrobid. 3. Chronic DVTs: Last one 2 months ago in LUE as per patient. Resume Xarelto 20 mg PO QD. 4. Diabetes Mellitus: POC glucose 209. Resume Lantus 35 units QHS, ISS (patient has her own sliding scale). Accuchecks. Hypoglycemic precautions. Low carb diet. 5. Hypothyroidisim: TSH 0.039, FT4 within normal limits. Resume Synthroid 225 mcg PO QD. 6. Gastroparesis: Stable. Resume Reglan 10 mg PO QHS, Zofran 8 mg PO Q6H PRN, Compazine 25 mg RECTAL TID, Tigan 300 mg PO TID PRN. 7. Migraines: Stable. Resume Topiramate 75 mg PO BID. Pain control with Tramadol , Fioricet and Tylenol. 8. Hyperlipidemia: Stable. Resume Fenofibrate 160 mg PO QD. 9. Hypertension: BP 108/56. Resume Losartan 50 mg PO QD, Metoprolol 100 mg PO QD. 10. DVT/GI Prophylaxis: Ranitidine 150 mg PO BID. Resume Xarelto 20 mg PO QD.
[2018-09-02 12:29] VITALS: BMI 39.6
[2018-09-02 12:35] LABS: Glucose,Whole Blood 148 mg/dL (75-99)
[2018-09-02] MEDS: INSULIN ASPART 100 UNIT/ML 1 ML 10 ML VIAL SQ SCH ×3 (12:58→21:39)
[2018-09-02] MEDS: METOCLOPRAMIDE 10 MG TAB PO SCH ×3 (12:59→21:36)
[2018-09-02] MEDS: ONDANSETRON ODT 8 MG TAB.RAPDIS PO PRN (14:51)
[2018-09-02 17:13] LABS: Glucose,Whole Blood 143 mg/dL (75-99)
[2018-09-02] MEDS: BUTALB/APAP/CAFF 50-325-40MG TAB PO PRN (18:06)
[2018-09-02] MEDS ORDERED: MELATONIN 1 MG TAB PO SCH (21:00)
[2018-09-02] MEDS ORDERED: tiZANidine 4 MG TAB PO SCH (21:00)
[2018-09-02] MEDS: TOPIRAMATE 25 MG TAB PO SCH (21:37)
[2018-09-02] MEDS: INSULIN DETEMIR 100 UNIT/ML 10 ML VIAL SQ SCH (21:37)
[2018-09-02] MEDS: FAMOTIDINE 20 MG TAB PO SCH (21:37)
[2018-09-02 21:57] LABS: Glucose,Whole Blood 161 mg/dL (75-99)
[2018-09-03] MEDS: PROCHLORPERAZINE SUPPOSITORY 25 MG SUPP RECTAL SCH ×3 (04:23→21:31)
[2018-09-03 06:22] LABS: Glucose,Whole Blood 156 mg/dL (75-99)
[2018-09-03] MEDS: INSULIN ASPART 100 UNIT/ML 1 ML 10 ML VIAL SQ SCH ×4 (06:24→21:28)
[2018-09-03] MEDS ORDERED: LEVOTHYROXINE 100 MCG TAB PO SCH (06:30)
[2018-09-03] MEDS ORDERED: LEVOTHYROXINE 25 MCG TAB PO SCH (06:30)
[2018-09-03] MEDS ORDERED: PANTOPRAZOLE 40 MG TABLET PO SCH (07:30)
[2018-09-03] MEDS: TOPIRAMATE 25 MG TAB PO SCH ×2 (08:25→21:32)
[2018-09-03] MEDS: METOCLOPRAMIDE 10 MG TAB PO SCH ×4 (08:25→21:30)
[2018-09-03] MEDS: FAMOTIDINE 20 MG TAB PO SCH ×2 (08:25→21:28)
[2018-09-03] MEDS: BUTALB/APAP/CAFF 50-325-40MG TAB PO PRN (08:30)
[2018-09-03] MEDS ORDERED: METOPROLOL SUCCINATE (ER) 100 MG TAB.ER.24H PO SCH (09:00)
[2018-09-03] MEDS ORDERED: RIVAROXABAN 20 MG TAB PO SCH (09:00)
[2018-09-03] MEDS ORDERED: FENOFIBRATE 160 MG TAB PO SCH (09:00)
[2018-09-03] MEDS ORDERED: LOSARTAN 50 MG TAB PO SCH (09:00)
[2018-09-03] MEDS ORDERED: MODAFINIL 200 MG TAB PO SCH (09:00)
--- NOTE | 2018-09-03 09:58 | P.PN ---
Subjective Progress Note Date: 09/03/18 Principal diagnosis: Suicidal ideation Patient was seen and examined. No acute events overnight. Sitter is at bedside. Patient reports headache, bitemporal, related to her chronic migraines. She did take Fioricet this morning without relief. She denies any nausea or vomiting. She has no other complaints this morning. Objective - Vital Signs Vital signs: Vital Signs Temp 98.4 F 09/03/18 06:17 Pulse 81 09/03/18 06:17 Resp 18 09/03/18 06:17 BP 95/65 09/03/18 06:17 Pulse Ox 97 09/03/18 06:17 Intake & Output 09/02/18 09/03/18 09/03/18 18:59 06:59 18:59 Intake Total 240 300 Balance 240 300 Weight 108 kg Intake: Oral 240 300 Other: Voiding Method Toilet Toilet # Voids 2 1 - Exam General: [non toxic], [no distress], [appears at stated age] Derm: [warm], [dry] Head: [atraumatic], [normocephalic], [symmetric] Eyes: [EOMI], [no lid lag], [anicteric sclera] Mouth: [no lip lesion], [mucus membranes moist] Cardiovascular: [S1S2 reg], [no murmur], [positive DP pulse bilateral] Lungs: [CTA bilateral], [no rhonchi, no rales] , [no accessory muscle use] Abdominal: [soft], [ nontender to palpation], [no guarding], [no appreciable organomegaly] Ext: [no gross muscle atrophy], [no edema], [no contractures] Neuro: [no focal neuro deficits] Psych: [Alert], [oriented], [appropriate affect] - Labs CBC & Chem 7: 09/02/18 06:41 09/02/18 06:41 Labs: Abnormal Lab Results - Last 24 Hours (Table) 09/02/18 09/02/18 09/02/18 Range/Units 12:34 17:11 21:37 POC Glucose (mg/dL) 148 H 143 H 161 H (75-99) mg/dL 09/03/18 Range/Units 06:21 POC Glucose (mg/dL) 156 H (75-99) mg/dL Assessment and Plan Assessment: Assessment and Plan 1. Suicidal ideation: Reports of plan to OD. 1:1 sitter. UDS + amphetamines and barbiturates. Suicide precautions. FU Psyc consult 2. Migraines: Stable. Resume Topiramate 75 mg PO BID. Pain control with Tramadol , Fioricet and Tylenol. 3. Neurogenic bladder with frequent UTIs: UA shows moderate LE but patient has no dysuria. Monitor Ins and Outs. Might benefit from daily Macrobid. 4. Chronic DVTs: Last one 2 months ago in LUE as per patient. Resume Xarelto 20 mg PO QD. 5. Diabetes Mellitus: POC glucose 156. Resume Lantus 35 units QHS, ISS (patient has her own sliding scale). Accuchecks. Hypoglycemic precautions. Low carb diet. 6. Hypothyroidisim: TSH 0.039, FT4 within normal limits. Resume Synthroid 225 mcg PO QD. 7. Gastroparesis: Stable. Resume Reglan 10 mg PO QHS, Zofran 8 mg PO Q6H PRN, Compazine 25 mg RECTAL TID, Tigan 300 mg PO TID PRN. 8. Hyperlipidemia: Stable. Resume Fenofibrate 160 mg PO QD. 9. Hypertension: BP 95/65. Resume Losartan 50 mg PO QD, Metoprolol 100 mg PO QD. 10. DVT/GI Prophylaxis: Ranitidine 150 mg PO BID. Resume Xarelto 20 mg PO QD.
[2018-09-03 11:44] LABS: Glucose,Whole Blood 156 mg/dL (75-99)
[2018-09-03] MEDS ORDERED: HYDROcodone/APAP 5-325MG 1 EACH TAB PO STA (11:51)
[2018-09-03 16:35] LABS: Glucose,Whole Blood 134 mg/dL (75-99)
[2018-09-03] MEDS ORDERED: PHENAZOPYRIDINE 200 MG TAB PO STA (17:34)
[2018-09-03] MEDS: SODIUM CHLORIDE 0.9% 1,000 ML IV SCH (18:29)
[2018-09-03 20:26] LABS: Glucose,Whole Blood 160 mg/dL (75-99)
[2018-09-03 20:37] LABS: Amorphous Sediment,Urine Rare /hpf; Appearance,Urine Cloudy (Clear); Bacteria,Urine Rare /hpf; Bilirubin,Urine Negative (Negative); Blood,Urine Negative (Negative); Color,Urine Yellow; Glucose,Urine (UA) Negative (Negative); Ketones,Urine Negative (Negative); Leukocyte Esterase,Urine Moderate (Negative); Mucus,Urine Rare /hpf; Nitrite,Urine Negative (Negative); PH, Urine 6.5 (5.0-8.0); Protein,Urine Negative (Negative); RBC,Urine 5 /hpf (0-5); Specific Gravity,Urine 1.018 (1.001-1.035); Squamous Epithelial Cell,Urine 9 /hpf (0-4); Urobilinogen,Urine <2.0 mg/dL (<2.0)
[2018-09-03] MEDS ORDERED: MELATONIN 1 MG TAB PO SCH (21:00)
[2018-09-03] MEDS ORDERED: tiZANidine 4 MG TAB PO SCH (21:00)
[2018-09-03] MEDS: INSULIN DETEMIR 100 UNIT/ML 10 ML VIAL SQ SCH (21:28)
[2018-09-03] MEDS: traMADol 50 MG TAB PO PRN (21:33)
[2018-09-04] MEDS: SODIUM CHLORIDE 0.9% 1,000 ML IV SCH (03:54)
[2018-09-04] MEDS ORDERED: LEVOTHYROXINE 100 MCG TAB PO SCH (06:30)
[2018-09-04] MEDS ORDERED: LEVOTHYROXINE 25 MCG TAB PO SCH (06:30)
[2018-09-04 06:50] LABS: Glucose,Whole Blood 134 mg/dL (75-99)
[2018-09-04] MEDS: INSULIN ASPART 100 UNIT/ML 1 ML 10 ML VIAL SQ SCH ×2 (07:38→13:05)
[2018-09-04] MEDS: METOCLOPRAMIDE 10 MG TAB PO SCH ×2 (08:44→13:05)
[2018-09-04] MEDS: PROCHLORPERAZINE SUPPOSITORY 25 MG SUPP RECTAL SCH (08:45)
[2018-09-04] MEDS: traMADol 50 MG TAB PO PRN (08:45)
[2018-09-04] MEDS: TOPIRAMATE 25 MG TAB PO SCH (08:46)
[2018-09-04] MEDS: FAMOTIDINE 20 MG TAB PO SCH (08:46)
[2018-09-04] MEDS ORDERED: CYANOCOBALAMIN 500 MCG TAB PO SCH (09:00)
[2018-09-04] MEDS ORDERED: FENOFIBRATE 160 MG TAB PO SCH (09:00)
[2018-09-04] MEDS ORDERED: LOSARTAN 50 MG TAB PO SCH (09:00)
[2018-09-04] MEDS ORDERED: CHOLECALCIFEROL 1,000 UNIT TAB PO SCH (09:00)
[2018-09-04] MEDS ORDERED: METOPROLOL SUCCINATE (ER) 100 MG TAB.ER.24H PO SCH (09:00)
[2018-09-04] MEDS ORDERED: RIVAROXABAN 20 MG TAB PO SCH (09:00)
--- NOTE | 2018-09-04 09:05 | P.DS ---
Providers Date of admission: 09/02/18 06:10 Expected date of discharge: 09/04/18 Attending physician: Guzman Jarrell MD Consults: 09/02/18 06:10 Consult Physician Stat Consulting Provider: Curly Al Consult Reason/Comments: suicidal Do you want consulting provider notified?: Already Contacted Primary care physician: [facility] Course: Patient was seen by me today for follow-up. It is planned for her to be discharged to the psychiatric unit. She is a 38-year-old female with complex past medical history noted below for underlying mitochondrial disease, dystonia, dysautonomia, and gastroparesis who presented to the emergency room with severe depression and suicidal ideation. Patient was placed on medical floor. She is awaiting psych evaluation. Nursing staff informed me that patient was verbally accepted to the psych unit. She is doing fairly well today. She denies any specific concerns or complaints. She has a sitter at bedside. She denies any suicidal thoughts at this time. Patient is medically cleared to be transferred to the psych unit today if bed is available. Below is a list of her medical problems. 1. Suicidal ideation: Reports of plan to OD. 1:1 sitter. UDS + amphetamines and barbiturates. Suicide precautions. Admit to inpatient psych 2. Migraines: Stable. Resume Topiramate 75 mg PO BID. Pain control with Tramadol , Fioricet and Tylenol. 3. Neurogenic bladder with frequent UTIs: UA shows evidence of contamination with elevated squamous cell count. No antibiotic indicated at this time. 4. Chronic DVTs: Last one 2 months ago in LUE as per patient. Resume Xarelto 20 mg PO QD. 5. Diabetes Mellitus: Resume Lantus 35 units QHS, Accuchecks. Hypoglycemic precautions. Low carb diet. 6. Hypothyroidisim: TSH 0.039, FT4 within normal limits. Resume Synthroid 225 mcg PO QD. 7. Gastroparesis: Stable. Resume her home regimen 8. Hyperlipidemia: Stable. Resume Fenofibrate 160 mg PO QD. 9. Hypertension: Blood pressure borderline low. Change losartan dose to 25 mg daily Plan - Discharge Summary Discharge Rx Participant: No New Discharge Prescriptions: New Losartan [Cozaar] 25 mg PO DAILY #30 tab Continue tiZANidine [Zanaflex] 8 mg PO HS Rivaroxaban [Xarelto] 20 mg PO DAILY Metoclopramide [Reglan] 10 mg PO [facility] Trimethobenzamide HCl [Tigan] 300 mg PO TID PRN PRN Reason: Nausea Metoprolol Succinate (ER) [Toprol XL] 100 mg PO DAILY Ranitidine HCl 150 mg PO BID Insulin Glargine [Lantus] 35 unit SQ HS Topiramate [Topamax] 75 mg PO BID Ondansetron [Zofran ODT] 8 mg PO Q6H PRN PRN Reason: Nausea Insulin Lispro [humaLOG Kwikpen] See Protocol SQ [facility] Cyanocobalamin (Vitamin B-12) [Vitamin B-12] 2,000 mcg PO DAILY Butalb/APAP/Caff 50-325-40Mg [Fioricet 50-325-40] 1 tab PO Q8H PRN PRN Reason: Migraine Headache traMADol HCL [Ultram] 50 mg PO Q6HR PRN PRN Reason: Pain Cholecalciferol (Vitamin D3) [Vitamin D3] 2,000 unit PO DAILY Modafinil [Provigil] 200 mg PO DAILY Fenofibrate 160 mg PO DAILY Melatonin 2 mg PO HS Prochlorperazine Suppository [Compazine] 25 mg RECTAL Q12HR Prochlorperazine Suppository [Compazine] 25 mg RECTAL Q8HR Levothyroxine Sodium [Levoxyl] 25 mcg PO DAILY Levothyroxine Sodium [Levoxyl] 200 mcg PO DAILY Changed diphenhydrAMINE [Benadryl] 50 mg PO HS #0 Discontinued Losartan [Cozaar] 50 mg PO DAILY tiZANidine [Zanaflex] 2 mg PO DAILY 3 Days #3 tab Discharge Medication List Rivaroxaban [Xarelto] 20 mg PO DAILY 03/09/17 [History] tiZANidine [Zanaflex] 8 mg PO HS 03/09/17 [History] Metoclopramide [Reglan] 10 mg PO [facility] 07/29/17 [History] Trimethobenzamide HCl [Tigan] 300 mg PO TID PRN 09/25/17 [History] Metoprolol Succinate (ER) [Toprol XL] 100 mg PO DAILY 10/24/17 [History] Ranitidine HCl 150 mg PO BID 12/17/17 [History] Insulin Glargine [Lantus] 35 unit SQ HS 03/15/18 [History] Cyanocobalamin (Vitamin B-12) [Vitamin B-12] 2,000 mcg PO DAILY 05/23/18 [ History] Insulin Lispro [humaLOG Kwikpen] See Protocol SQ [facility] 05/23/18 [History] Ondansetron [Zofran ODT] 8 mg PO Q6H PRN 05/23/18 [History] Topiramate [Topamax] 75 mg PO BID 05/23/18 [History] Butalb/APAP/Caff 50-325-40Mg [Fioricet 50-325-40] 1 tab PO Q8H PRN 06/11/18 [ History] traMADol HCL [Ultram] 50 mg PO Q6HR PRN 06/19/18 [History] Cholecalciferol (Vitamin D3) [Vitamin D3] 2,000 unit PO DAILY 08/18/18 [History] Fenofibrate 160 mg PO DAILY 09/01/18 [History] Modafinil [Provigil] 200 mg PO DAILY 09/01/18 [History] Levothyroxine Sodium [Levoxyl] 25 mcg PO DAILY 09/02/18 [History] Levothyroxine Sodium [Levoxyl] 200 mcg PO DAILY 09/02/18 [History] Melatonin 2 mg PO HS 09/02/18 [History] Prochlorperazine Suppository [Compazine] 25 mg RECTAL Q12HR 09/02/18 [History] Prochlorperazine Suppository [Compazine] 25 mg RECTAL Q8HR 09/02/18 [History] Losartan [Cozaar] 25 mg PO DAILY #30 tab 09/04/18 [Rx] diphenhydrAMINE [Benadryl] 50 mg PO HS #0 09/04/18 [Rx] Follow up Appointment(s)/Referral(s): Fran Thompson MD [Primary Care Provider] - 1-2 days Discharge Disposition: TRANSFER TO PSYCH HOSP/UNIT
[2018-09-04] MEDS: ONDANSETRON ODT 8 MG TAB.RAPDIS PO PRN (09:30)
[2018-09-04 11:07] LABS: Glucose,Whole Blood 203 mg/dL (75-99)
[2018-09-04 14:33] VITALS: BP 91/59; PULSE 83; RESP 20; TEMP 98.8
== END 2018-09-04 16:30 ==
LOC: EC 04:22 → 5MS5E 06:10 → 3NMEDONC 09-03 12:45
PROVIDERS: ADMIT Internal Medicine; ATTEND Internal Medicine
DX: R45.851 Suicidal ideations (principal); G43.409 Hemiplegic migraine, not intractable, without status migrainosus; Z87.440 Personal history of urinary (tract) infections; N31.9 Neuromuscular dysfunction of bladder, unspecified; E11.43 Type 2 diabetes mellitus with diabetic autonomic (poly)neuropathy; K31.84 Gastroparesis; E78.5 Hyperlipidemia, unspecified; I10 Essential (primary) hypertension; I82.502 Chronic embolism and thrombosis of unspecified deep veins of left lower extremity; Z79.01 Long term (current) use of anticoagulants; F32.9 Major depressive disorder, single episode, unspecified; Z91.5 Personal history of self-harm; E88.40 Mitochondrial metabolism disorder, unspecified; E06.3 Autoimmune thyroiditis; I47.2 Ventricular tachycardia; G47.419 Narcolepsy without cataplexy; D68.62 Lupus anticoagulant syndrome; E11.40 Type 2 diabetes mellitus with diabetic neuropathy, unspecified; D51.0 Vitamin B12 deficiency anemia due to intrinsic factor deficiency; R19.7 Diarrhea, unspecified; E03.9 Hypothyroidism, unspecified; G90.1 Familial dysautonomia [Riley-Day]; G24.9 Dystonia, unspecified; Z79.899 Other long term (current) drug therapy; Z79.4 Long term (current) use of insulin; Z79.890 Hormone replacement therapy; Z79.891 Long term (current) use of opiate analgesic; Z88.2 Allergy status to sulfonamides; Z88.7 Allergy status to serum and vaccine; Z88.8 Allergy status to other drugs, medicaments and biological substances; Z86.14 Personal history of Methicillin resistant Staphylococcus aureus infection; Z86.73 Personal history of transient ischemic attack (TIA), and cerebral infarction without residual deficits; Z91.81 History of falling; Z82.49 Family history of ischemic heart disease and other diseases of the circulatory system
CPT/HCPCS: 99284 ×2; 96361; 96374; 82075; 36415; 84439; 80053; 84443; 85025; 85610; 85730; 81001 ×2; 80306; 83520 ×2; 87086; G0378 ×4; J1642

== ENCOUNTER 2018-09-04 15:40 | Inpatient (IN) | payer MEDICARE, MEDICAID ==
[2018-09-04 16:42] LABS: Glucose,Whole Blood 118 mg/dL (75-99)
[2018-09-04] MEDS ORDERED: MAG HYDROX/AL HYDROX/SIMETH 30 ML CUP PO PRN (17:15)
[2018-09-04 17:25] VITALS: BMI 39.7
[2018-09-04] MEDS: tiZANidine 4 MG TAB PO SCH (20:19)
[2018-09-04] MEDS: diphenhydrAMINE 50 MG CAP PO SCH (20:19)
[2018-09-04] MEDS: TOPIRAMATE 25 MG TAB PO SCH (20:19)
[2018-09-04] MEDS: INSULIN DETEMIR 100 UNIT/ML 10 ML VIAL SQ SCH (20:19)
[2018-09-04] MEDS: INSULIN ASPART 100 UNIT/ML 1 ML 10 ML VIAL SQ SCH (20:20)
[2018-09-04 20:38] LABS: Glucose,Whole Blood 155 mg/dL (75-99)
[2018-09-05] MEDS: LEVOTHYROXINE 100 MCG TAB PO SCH (06:16)
[2018-09-05] MEDS: LEVOTHYROXINE 25 MCG TAB PO SCH (06:17)
[2018-09-05 06:30] LABS: Glucose,Whole Blood 110 mg/dL (75-99)
[2018-09-05] MEDS: INSULIN ASPART 100 UNIT/ML 1 ML 10 ML VIAL SQ SCH ×4 (07:42→20:15)
[2018-09-05] MEDS: METOPROLOL SUCCINATE (ER) 100 MG TAB.ER.24H PO SCH (08:54)
[2018-09-05] MEDS: LOSARTAN 25 MG TAB PO SCH (08:54)
[2018-09-05] MEDS: TOPIRAMATE 25 MG TAB PO SCH (08:54)
[2018-09-05] MEDS: RIVAROXABAN 20 MG TAB PO SCH (08:55)
[2018-09-05] MEDS: MODAFINIL 200 MG TAB PO SCH (08:55)
[2018-09-05] MEDS: CHOLECALCIFEROL 1,000 UNIT TAB PO SCH (08:55)
[2018-09-05] MEDS: CYANOCOBALAMIN 500 MCG TAB PO SCH (08:55)
[2018-09-05] MEDS: FENOFIBRATE 160 MG TAB PO SCH (08:55)
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
[2018-09-05] MEDS: FAMOTIDINE 20 MG TAB PO SCH ×2 (11:05→20:14)
--- NOTE | 2018-09-05 12:25 | P.CONS ---
History of Present Illness - Reason for Consult Consult date: 09/05/18 Medical management - Chief Complaint Severe depression - History of Present Illness She is a 38-year-old female with complex past medical history noted below for underlying mitochondrial disease, dystonia, dysautonomia, and gastroparesis who presented to the emergency room with severe depression and suicidal ideation. Patient was placed on medical floor. She was cleared and currently transferred to the inpatient psych unit. I was asked to see her for medical management. Patient is doing fairly well. She reported decreased by mouth intake. She denies any abdominal pain or bloating. She is currently participating in group therapy. Review of Systems Review of system: 14 points review of systems were obtained and were negative except to what were mentioned in the HPI. Past Medical History Past Medical History: Chest Pain / Angina, CVA/TIA, Diabetes Mellitus, Deep Vein Thrombosis (DVT), Neurologic Disorder, Syncope, Thyroid Disorder Additional Past Medical History / Comment(s): "STROKE LIKE EPISODE D/T MITOCHRONDIAL DISEASE HAD WORK UP DONE AT [facility]. WEARS A BRACE ON LT ANKLE AND LT WRIST".Dysautonomia-progressive neurological disorder, lupus/LUPUS ANTICOAGULANTS, 2004 CVA without residual, ana maria's disease, lymphedema Lt arm d/t DVTs , v-tach, pituitary microadenoma. "mitochondrial disease". patent foramen ovale, narcolepsy, gastropareis, IDDM type II, uti's, falls, orthostatic hypotension/syncope,migraines with hemiplegia, pernicious anemia, polycystic ovarian syndrome, neuropathy bilateral legs/fee-mild, uterine ablation August 2015/patient no longer has periods-had uterine ablation uti's. , midline access for fluids-current access issues has contacted dr quigley. History of Any Multi-Drug Resistant Organisms: ESBL, MRSA Year Discovered:: 03/09/17 MRSA/ 05/17/18 ESBL MDRO Source:: MRSA LEFT ARM,/ESBL URINE ECOLI Past Surgical History: Ablation, Uterine Ablation Additional Past Surgical History / Comment(s): colonscopy/egd, angie, stress test. PORT-A -CATH INSERTION 04-28-18 Past Anesthesia/Blood Transfusion Reactions: No Reported Reaction Additional Past Anesthesia/Blood Transfusion Reaction / Comm: patient states " It takes a lot of anesthesia for my body to react". Pt has received blood in past without reaction. Past Psychological History: Bipolar, Depression Additional Psychological History / Comment(s): CURRENTLY PT AT [facility] FOR REHAB. PT STATED THAT SHE CAN STAND AND TRANSFER BUT IS CURRENTLY GETTING PT TO HELP HER WALK. CURRENTLY USES W/C TO GET AROUND). She does not drive she gets to appts by bus or cab. She has hx of suicide attempt in 2014 but states that depression is stable at this time. No animal exposures. No tobacco or alcohol use. Single without children. Does not relate to other family members with her genetic disorder Smoking Status: Never smoker Past Alcohol Use History: None Reported Additional Past Alcohol Use History / Comment(s): Patient is a lifelong nonsmoker. She denies any medical marijuana, marijuana, street drug or alcohol use. She resides with her mom. She can walk short distances and otherwise uses a wheelchair. She has a walker. She does not drive but usually gets appointments by [facility]. She has history of suicide attempt in 2015 but states depression is stable. No animal exposures. Patient is single without children. Patient denies any family members with her genetic disorder. Past Drug Use History: None Reported - Past Family History Brother(s) Family Medical History: Diabetes Mellitus, Hyperlipidemia, Hypertension Additional Family Medical History / Comment(s): Patient states she has 1 brother with no major medical problems. Father Family Medical History: Diabetes Mellitus, Hyperlipidemia, Hypertension Additional Family Medical History / Comment(s): DAD IS 70 YEARS OLD. Patient states she does not have any contact with her father and does not know his medical history. Mother Family Medical History: Blood Disorder, Chest Pain / Angina, CVA/TIA, Hyperlipidemia, Hypertension Additional Family Medical History / Comment(s): AGE 62 HAS LUPUS, blood pressure swings high to low, antiphospholipid antibody syndrome Medications and Allergies Home Medications Medication Instructions Recorded Confirmed Type Rivaroxaban [Xarelto] 20 mg PO DAILY 03/09/17 09/04/18 History tiZANidine [Zanaflex] 8 mg PO HS 03/09/17 09/04/18 History Metoclopramide [Reglan] 10 mg PO ACHS 07/29/17 09/04/18 History Trimethobenzamide HCl [Tigan] 300 mg PO TID PRN 09/25/17 09/04/18 History Metoprolol Succinate (ER) [Toprol 100 mg PO DAILY 10/24/17 09/04/18 History XL] Ranitidine HCl 150 mg PO BID 12/17/17 09/04/18 History Insulin Glargine [Lantus] 35 unit SQ HS 03/15/18 09/04/18 History Cyanocobalamin (Vitamin B-12) 2,000 mcg PO DAILY 05/23/18 09/04/18 History [Vitamin B-12] Insulin Lispro [humaLOG Kwikpen] See Protocol SQ ACHS 05/23/18 09/04/18 History Ondansetron [Zofran ODT] 8 mg PO Q6H PRN 05/23/18 09/04/18 History Topiramate [Topamax] 75 mg PO BID 05/23/18 09/04/18 History Butalb/APAP/Caff 50-325-40Mg 1 tab PO Q8H PRN 06/11/18 09/04/18 History [Fioricet 50-325-40] traMADol HCL [Ultram] 50 mg PO Q6HR PRN 06/19/18 09/04/18 History Cholecalciferol (Vitamin D3) 2,000 unit PO DAILY 08/18/18 09/04/18 History [Vitamin D3] Fenofibrate 160 mg PO DAILY 09/01/18 09/04/18 History Modafinil [Provigil] 200 mg PO DAILY 09/01/18 09/04/18 History Levothyroxine Sodium [Levoxyl] 25 mcg PO DAILY 09/02/18 09/04/18 History Levothyroxine Sodium [Levoxyl] 200 mcg PO DAILY 09/02/18 09/04/18 History Melatonin 2 mg PO HS 09/02/18 09/04/18 History Prochlorperazine Suppository 25 mg RECTAL Q12HR 09/02/18 09/04/18 History [Compazine] Prochlorperazine Suppository 25 mg RECTAL Q12HR PRN 09/02/18 09/04/18 History [Compazine] Losartan [Cozaar] 25 mg PO DAILY #30 tab 09/04/18 09/04/18 Rx diphenhydrAMINE [Benadryl] 50 mg PO HS #0 09/04/18 09/04/18 Rx Allergies Allergy/AdvReac Type Severity Reaction Status Date / Time barium sulfate Allergy Anaphylaxis Verified 09/04/18 17:00 diphtheria, pertussis, Allergy Unknown Verified 09/04/18 17:00 tetanus vacc doxepin [Doxepin] Allergy Anaphylaxis Verified 09/04/18 17:00 ephedrine Allergy Unknown Verified 09/04/18 17:00 ertapenem [From Invanz] Allergy Rash/Hives Verified 09/04/18 17:00 influenza virus vaccine, Allergy Anaphylaxis Verified 09/04/18 17:00 specific [Influenza Virus Vacc,Specific] promethazine HCl Allergy Anaphylaxis Verified 09/04/18 17:00 [From Phenergan] doxycycline AdvReac Nausea & Verified 09/04/18 17:00 Vomiting & Diarrhea peanut AdvReac Nausea & Verified 09/04/18 17:00 Vomiting peanut oil AdvReac Nausea & Verified 09/04/18 17:00 Vomiting Pertussis Vaccines AdvReac fever/seizu Verified 09/04/18 17:00 re pseudoephedrine AdvReac Chest Pain Verified 09/04/18 17:00 pseudoephedrine HCl AdvReac Chest Pain Verified 09/04/18 17:00 [From Sudafed] sulfamethoxazole AdvReac Nausea & Verified 09/04/18 17:00 [From Bactrim] Vomiting trimethoprim [From Bactrim] AdvReac Nausea & Verified 09/04/18 17:00 Vomiting Physical Exam Vitals: Vital Signs Temp Pulse Resp BP 09/05/18 06:28 98.6 F 84 18 137/86 09/05/18 03:00 97.8 F 09/04/18 17:36 100.1 F H 82 18 129/82 09/04/18 17:17 100.1 F H 82 18 129/82 Intake and Output 09/04/18 09/05/18 09/05/18 22:59 06:59 14:59 Other: Weight 108.434 kg General: The patient is awake and alert, in no distress Eye: there is normal conjunctiva bilaterally. Neck: The neck is supple, there is no JVD. Cardiovascular: Normal S1-S2, no S3-S4, no murmurs. Respiratory: Lungs clear to auscultation bilaterally Gastrointestinal: Abdomen is soft, nontender Musculoskeletal: There is no pedal edema. Neurological:. Speech is normal. Skin: Skin is warm and dry Results Labs: Abnormal Lab Results - Last 24 Hours (Table) 09/02/18 09/04/18 09/04/18 Range/Units 06:41 16:39 20:08 POC Glucose (mg/dL) 118 H 155 H (75-99) mg/dL Triglycerides 479 H (<150) mg/dL Cholesterol 233 H (<200) mg/dL HDL Cholesterol 74 H (40-60) mg/dL TSH 0.030 L (0.465-4.680) mIU/L 09/05/18 Range/Units 06:15 POC Glucose (mg/dL) 110 H (75-99) mg/dL Triglycerides (<150) mg/dL Cholesterol (<200) mg/dL HDL Cholesterol (40-60) mg/dL TSH (0.465-4.680) mIU/L Assessment and Plan Assessment: 1. Suicidal ideation: With severe depression. Management per psych 2. Migraines: Stable. Continue current regimen 3. Neurogenic bladder with frequent UTIs: UA shows evidence of contamination with elevated squamous cell count. No antibiotic indicated at this time. 4. Chronic DVTs: Last one 2 months ago in LUE as per patient. Resume Xarelto 20 mg PO QD. 5. Diabetes Mellitus: Resume Lantus 35 units QHS, Low carb diet. 6. Hypothyroidisim: Synthroid 225 mcg PO QD. 7. Gastroparesis: Continue her home regimen 8. Hyperlipidemia: on Fenofibrate 160 mg PO QD. started couple of weeks ago. Follow-up as outpatient. Patient has ALLERGY to statins. 9. Hypertension: Blood pressure within acceptable range. Continue current regimen
[2018-09-05 13:02] LABS: Glucose,Whole Blood 140 mg/dL (75-99)
[2018-09-05] MEDS: SUMAtriptan SUCCINATE 25 MG TAB PO PRN (13:12)
[2018-09-05] MEDS: ONDANSETRON ODT 8 MG TAB.RAPDIS PO PRN (13:47)
[2018-09-05 18:00] LABS: Glucose,Whole Blood 133 mg/dL (75-99)
[2018-09-05 19:53] LABS: Glucose,Whole Blood 173 mg/dL (75-99)
[2018-09-05] MEDS: INSULIN DETEMIR 100 UNIT/ML 10 ML VIAL SQ SCH (20:14)
[2018-09-05] MEDS: tiZANidine 4 MG TAB PO SCH (20:14)
[2018-09-05] MEDS: TOPIRAMATE 100 MG TAB PO SCH (20:14)
[2018-09-05] MEDS: PALIPERIDONE 3 MG TAB.ER.24 PO SCH (20:14)
[2018-09-05] MEDS: diphenhydrAMINE 50 MG CAP PO SCH (20:14)
[2018-09-05] MEDS: ACETAMINOPHEN TAB 325 MG TAB PO PRN (20:49)
[2018-09-05] MEDS ORDERED: VENLAFAXINE HCL ER 37.5 MG CAP PO SCH (21:00)
[2018-09-06] MEDS ORDERED: BENZTROPINE MESYLATE 0.5 MG TAB PO ONE ×2 (00:15→23:56)
[2018-09-06] MEDS: LEVOTHYROXINE 100 MCG TAB PO SCH (06:20)
[2018-09-06] MEDS: LEVOTHYROXINE 25 MCG TAB PO SCH (06:21)
[2018-09-06 06:35] LABS: Glucose,Whole Blood 127 mg/dL (75-99)
[2018-09-06] MEDS: INSULIN ASPART 100 UNIT/ML 1 ML 10 ML VIAL SQ SCH ×4 (06:43→20:19)
[2018-09-06] MEDS: CYANOCOBALAMIN 500 MCG TAB PO SCH (08:25)
[2018-09-06] MEDS: CHOLECALCIFEROL 1,000 UNIT TAB PO SCH (08:25)
[2018-09-06] MEDS: LOSARTAN 25 MG TAB PO SCH (08:26)
[2018-09-06] MEDS: FENOFIBRATE 160 MG TAB PO SCH (08:26)
[2018-09-06] MEDS: FAMOTIDINE 20 MG TAB PO SCH ×2 (08:26→20:18)
[2018-09-06] MEDS: METOPROLOL SUCCINATE (ER) 100 MG TAB.ER.24H PO SCH (08:26)
[2018-09-06] MEDS: RIVAROXABAN 20 MG TAB PO SCH (08:27)
[2018-09-06] MEDS: TOPIRAMATE 100 MG TAB PO SCH ×2 (08:27→20:18)
[2018-09-06] MEDS: MODAFINIL 200 MG TAB PO SCH (08:28)
--- NOTE | 2018-09-06 12:28 | P.PN ---
Subjective Progress Note Date: 09/06/18 Principal diagnosis: Bipolar 1 disorder, depressed, severe I am angry today because she didn't give me all my pain medicines. Explained in great detail why I don't get all the pain medicines at once including her Reglan which can cause or psychosis. She told me she cannot eat due to her gastroparesis if she doesn't get her Reglan. After she had her Invega last night she had a dystonic reaction and Dr. Montalvo added benztropine and will convert that to twice a day dosing. Objective - Vital Signs Vital signs: Vital Signs Temp 98.3 F 09/06/18 06:52 Pulse 94 09/06/18 06:52 Resp 14 09/06/18 06:52 BP 127/77 09/06/18 06:52 Pulse Ox - Labs Labs: Abnormal Lab Results - Last 24 Hours (Table) 09/02/18 09/05/18 09/05/18 Range/Units 06:41 12:56 17:42 POC Glucose (mg/dL) 140 H 133 H (75-99) mg/dL Hemoglobin A1c 7.0 H (4.0-6.0) % 09/05/18 09/06/18 Range/Units 19:51 06:27 POC Glucose (mg/dL) 173 H 127 H (75-99) mg/dL Hemoglobin A1c (4.0-6.0) % Assessment and Plan Assessment: identification data and reason for hospitalization. Patient is a 36-year-old somewhat heavy built white female who was admitted following her evaluation the emergency department where she presented indicating that she is getting very depressed and was having suicidal thoughts. She is being admitted on a voluntary basis. Patient is somewhat of a heavy built to white female who appears younger than her stated age, in hospital clothes, and without any psychomotor disturbance. Patient comes readily for the interview and was quite [id number] in giving details with good eye contact. She seems to have adequate grooming trends. Attention and concentration could be aroused and sustained without any difficulty. Spontaneous in her speech with no disturbance in the flow, tone, rhythm, and volume. Thought process was without any disturbance, and thought content reveals hopeless helpless feelings and disappointment in her inability to work after having accomplished what she wanted educationally. Patient is depressed, but denies having any active suicidal thoughts. Wants medication to be adjusted so that she can be free from these episodes. In the past she used to have auditory hallucinations but none at present. No delusional ideations. Her orientation to time place and person intact. Remote and recent memory are intact as evidenced by her ability to give details of the past. Immediate memory intact as evidenced by her recall of 3 objects after 5 minutes. General Information intact as she is able to give the current events and past presidents. Patient appears to have adequate degree of insight as to the nature of her medical and psychiatric problems however judgment as dealing with them seem to be defective. Next Intelligence appears to be above average. Diagnosis still remains bipolar affective disorder (1) Bipolar 1 disorder, depressed, severe Current Visit: Yes Status: Acute Code(s): F31.4 - BIPOLAR DISORD, CRNT EPSD DEPRESS, SEV, W/O PSYCH FEATURES SNOMED Code(s): 613492388989 (2) Suicidal behavior without attempted self-injury Current Visit: Yes Status: Acute Code(s): R46.89 - OTHER SYMPTOMS AND SIGNS INVOLVING APPEARANCE AND BEHAVIOR SNOMED Code(s): 597115584 Plan: Mental status examination. Patient is somewhat of a heavy built to white female who appears younger than her stated age, in hospital clothes, and without any psychomotor disturbance. Patient comes readily for the interview and was quite [id number] in giving details with good eye contact. She seems to have adequate grooming trends. Attention and concentration could be aroused and sustained without any difficulty. Spontaneous in her speech with no disturbance in the flow, tone, rhythm, and volume. Thought process was without any disturbance, and thought content reveals hopeless helpless feelings and disappointment in her inability to work after having accomplished what she wanted educationally. Patient is depressed, but denies having any active suicidal thoughts. Wants medication to be adjusted so that she can be free from these episodes. In the past she used to have auditory hallucinations but none at present. No delusional ideations. Her orientation to time place and person intact. Remote and recent memory are intact as evidenced by her ability to give details of the past. Immediate memory intact as evidenced by her recall of 3 objects after 5 minutes. General Information intact as she is able to give the current events and past presidents. Patient appears to have adequate degree of insight as to the nature of her medical and psychiatric problems however judgment as dealing with them seem to be defective. Intelligence appears to be above average. Strengths. Supportive mother. Housing availability. Social Security income. Weakness. Traumatic childhood history. Financial problems. Multiple medical problems. Patient will be on close observation for any suicidal ideation or unpredictable behavior. Will encourage patient to participate in all milieu based treatment activities. Will have medical consultation/evaluation and management. She has been started on Tylenol, Maalox, milk of magnesia on a when necessary basis. Increase effexor 75 mgER, increase Topamax 100 mg po bid, invega 3 mg po qhs add Reglan and benztropine for extrapyramidal side effects. Everything was explained and great detail of how not to treat the symptoms but that treat the underlying disease. Time with Patient: Greater than 30
[2018-09-06 12:54] LABS: Glucose,Whole Blood 133 mg/dL (75-99)
[2018-09-06] MEDS: METOCLOPRAMIDE 10 MG TAB PO SCH ×2 (13:09→18:06)
[2018-09-06] MEDS: ONDANSETRON ODT 8 MG TAB.RAPDIS PO PRN (13:49)
[2018-09-06] MEDS: ACETAMINOPHEN TAB 325 MG TAB PO PRN (13:50)
[2018-09-06 18:06] LABS: Glucose,Whole Blood 139 mg/dL (75-99)
[2018-09-06] MEDS: BENZTROPINE MESYLATE 0.5 MG TAB PO SCH (20:18)
[2018-09-06] MEDS: PALIPERIDONE 3 MG TAB.ER.24 PO SCH (20:18)
[2018-09-06] MEDS: diphenhydrAMINE 50 MG CAP PO SCH (20:18)
[2018-09-06] MEDS: INSULIN DETEMIR 100 UNIT/ML 10 ML VIAL SQ SCH (20:18)
[2018-09-06] MEDS: tiZANidine 4 MG TAB PO SCH (20:18)
[2018-09-06] MEDS: MELOXICAM 7.5 MG TAB PO SCH (20:18)
[2018-09-06 20:20] LABS: Glucose,Whole Blood 155 mg/dL (75-99)
[2018-09-06] MEDS ORDERED: VENLAFAXINE HCL ER 75 MG CAP PO SCH (21:00)
[2018-09-07] MEDS: ACETAMINOPHEN TAB 325 MG TAB PO PRN (00:42)
[2018-09-07] MEDS: hydrOXYzine PAMOATE 25 MG CAP PO PRN (00:42)
[2018-09-07] MEDS: LEVOTHYROXINE 25 MCG TAB PO SCH (06:16)
[2018-09-07] MEDS: LEVOTHYROXINE 100 MCG TAB PO SCH (06:16)
[2018-09-07 06:38] LABS: Glucose,Whole Blood 120 mg/dL (75-99)
[2018-09-07] MEDS: INSULIN ASPART 100 UNIT/ML 1 ML 10 ML VIAL SQ SCH ×4 (08:19→20:23)
[2018-09-07] MEDS: MELOXICAM 7.5 MG TAB PO SCH ×2 (08:20→20:32)
[2018-09-07] MEDS: LOSARTAN 25 MG TAB PO SCH (08:20)
[2018-09-07] MEDS: CHOLECALCIFEROL 1,000 UNIT TAB PO SCH (08:21)
[2018-09-07] MEDS: MODAFINIL 200 MG TAB PO SCH (08:21)
[2018-09-07] MEDS: CYANOCOBALAMIN 500 MCG TAB PO SCH (08:21)
[2018-09-07] MEDS: METOCLOPRAMIDE 10 MG TAB PO SCH ×3 (08:21→18:01)
[2018-09-07] MEDS: TOPIRAMATE 100 MG TAB PO SCH ×2 (08:22→20:34)
[2018-09-07] MEDS: METOPROLOL SUCCINATE (ER) 100 MG TAB.ER.24H PO SCH (08:22)
[2018-09-07] MEDS: FENOFIBRATE 160 MG TAB PO SCH (08:22)
[2018-09-07] MEDS: RIVAROXABAN 20 MG TAB PO SCH (08:25)
[2018-09-07] MEDS: BENZTROPINE MESYLATE 0.5 MG TAB PO SCH (08:25)
[2018-09-07] MEDS: FAMOTIDINE 20 MG TAB PO SCH ×2 (08:26→20:26)
[2018-09-07] MEDS: SUMAtriptan SUCCINATE 25 MG TAB PO PRN (09:23)
--- NOTE | 2018-09-07 12:12 | P.PN ---
Subjective Progress Note Date: 09/07/18 Principal diagnosis: Bipolar 1 disorder, depressed, severe I am angry today because she didn't give me all my pain medicines. Explained in great detail why I don't get all the pain medicines at once including her Reglan which can cause or psychosis. She told me she cannot eat due to her gastroparesis if she doesn't get her Reglan. After she had her Invega last night she had a dystonic reaction and Dr. Montalvo and added benztropine 2 mg po qhs and will convert that to twice a day dosing. Objective - Vital Signs Vital signs: Vital Signs Temp 99.0 F 09/07/18 06:30 Pulse 84 09/07/18 06:30 Resp 14 09/07/18 06:30 BP 110/73 09/07/18 06:30 Pulse Ox - Labs Labs: Abnormal Lab Results - Last 24 Hours (Table) 09/06/18 09/06/18 09/06/18 Range/Units 12:46 18:03 20:16 POC Glucose (mg/dL) 133 H 139 H 155 H (75-99) mg/dL 09/07/18 Range/Units 06:34 POC Glucose (mg/dL) 120 H (75-99) mg/dL Assessment and Plan Assessment: identification data and reason for hospitalization. Patient is a 36-year-old somewhat heavy built white female who was admitted following her evaluation the emergency department where she presented indicating that she is getting very depressed and was having suicidal thoughts. She is being admitted on a voluntary basis. Patient is somewhat of a heavy built to white female who appears younger than her stated age, in hospital clothes, and without any psychomotor disturbance. Patient comes readily for the interview and was quite [id number] in giving details with good eye contact. She seems to have adequate grooming trends. Attention and concentration could be aroused and sustained without any difficulty. Spontaneous in her speech with no disturbance in the flow, tone, rhythm, and volume. Thought process was without any disturbance, and thought content reveals hopeless helpless feelings and disappointment in her inability to work after having accomplished what she wanted educationally. Patient is depressed, but denies having any active suicidal thoughts. Wants medication to be adjusted so that she can be free from these episodes. In the past she used to have auditory hallucinations but none at present. No delusional ideations. Her orientation to time place and person intact. Remote and recent memory are intact as evidenced by her ability to give details of the past. Immediate memory intact as evidenced by her recall of 3 objects after 5 minutes. General Information intact as she is able to give the current events and past presidents. Patient appears to have adequate degree of insight as to the nature of her medical and psychiatric problems however judgment as dealing with them seem to be defective. Next Intelligence appears to be above average. Diagnosis still remains bipolar affective disorder (1) Bipolar 1 disorder, depressed, severe Current Visit: Yes Status: Acute Code(s): F31.4 - BIPOLAR DISORD, CRNT EPSD DEPRESS, SEV, W/O PSYCH FEATURES SNOMED Code(s): 711965503639 (2) Suicidal behavior without attempted self-injury Current Visit: Yes Status: Acute Code(s): R46.89 - OTHER SYMPTOMS AND SIGNS INVOLVING APPEARANCE AND BEHAVIOR SNOMED Code(s): 900699277 Plan: Mental status examination. Patient is somewhat of a heavy built to white female who appears younger than her stated age, in hospital clothes, and without any psychomotor disturbance. Patient comes readily for the interview and was quite [id number] in giving details with good eye contact. She seems to have adequate grooming trends. Attention and concentration could be aroused and sustained without any difficulty. Spontaneous in her speech with no disturbance in the flow, tone, rhythm, and volume. Thought process was without any disturbance, and thought content reveals hopeless helpless feelings and disappointment in her inability to work after having accomplished what she wanted educationally. Patient is depressed, but denies having any active suicidal thoughts. Wants medication to be adjusted so that she can be free from these episodes. In the past she used to have auditory hallucinations but none at present. No delusional ideations. Her orientation to time place and person intact. Remote and recent memory are intact as evidenced by her ability to give details of the past. Immediate memory intact as evidenced by her recall of 3 objects after 5 minutes. General Information intact as she is able to give the current events and past presidents. Patient appears to have adequate degree of insight as to the nature of her medical and psychiatric problems however judgment as dealing with them seem to be defective. Intelligence appears to be above average. Strengths. Supportive mother. Housing availability. Social Security income. Weakness. Traumatic childhood history. Financial problems. Multiple medical problems. Patient will be on close observation for any suicidal ideation or unpredictable behavior. Will encourage patient to participate in all milieu based treatment activities. Will have medical consultation/evaluation and management. She has been started on Tylenol, Maalox, milk of magnesia on a when necessary basis. Increase effexor 150 mgER, increase Topamax 200 mg po bid, invega 3 mg po qhs add Reglan and benztropine for extrapyramidal side effects. Everything was explained and great detail of how not to treat the symptoms but that treat the underlying disease.Mirapex 0.5 mg po qhs and Cogentin 2 mg po qhs Time with Patient: Less than 30
[2018-09-07 12:32] LABS: Glucose,Whole Blood 110 mg/dL (75-99)
[2018-09-07 17:38] LABS: Glucose,Whole Blood 122 mg/dL (75-99)
[2018-09-07 20:14] LABS: Glucose,Whole Blood 168 mg/dL (75-99)
[2018-09-07] MEDS: tiZANidine 4 MG TAB PO SCH (20:16)
[2018-09-07] MEDS: AMOXIC-POT CLAV 500-125 MG 1 EACH TAB PO SCH (20:17)
[2018-09-07] MEDS: BENZTROPINE MESYLATE 1 MG TAB PO SCH (20:17)
[2018-09-07] MEDS: INSULIN DETEMIR 100 UNIT/ML 10 ML VIAL SQ SCH (20:18)
[2018-09-07] MEDS: diphenhydrAMINE 50 MG CAP PO SCH (20:26)
[2018-09-07] MEDS: PALIPERIDONE 3 MG TAB.ER.24 PO SCH (20:33)
[2018-09-07] MEDS: MAGNESIUM HYDROXIDE 2,400 MG/10 ML CUP PO PRN (20:50)
[2018-09-07] MEDS ORDERED: VENLAFAXINE HCL ER 150 MG CAP PO SCH (21:00)
[2018-09-07] MEDS ORDERED: PRAMIPEXOLE 0.5 MG TAB PO SCH (21:00)
[2018-09-08] MEDS: hydrOXYzine PAMOATE 25 MG CAP PO PRN (01:24)
[2018-09-08] MEDS: LEVOTHYROXINE 100 MCG TAB PO SCH (06:00)
[2018-09-08] MEDS: LEVOTHYROXINE 25 MCG TAB PO SCH (06:00)
[2018-09-08 06:23] LABS: Glucose,Whole Blood 124 mg/dL (75-99)
[2018-09-08] MEDS: AMOXIC-POT CLAV 500-125 MG 1 EACH TAB PO SCH ×2 (08:05→20:54)
[2018-09-08] MEDS: LOSARTAN 25 MG TAB PO SCH (08:05)
[2018-09-08] MEDS: FENOFIBRATE 160 MG TAB PO SCH (08:05)
[2018-09-08] MEDS: CHOLECALCIFEROL 1,000 UNIT TAB PO SCH (08:05)
[2018-09-08] MEDS: METOCLOPRAMIDE 10 MG TAB PO SCH ×3 (08:05→17:52)
[2018-09-08] MEDS: MODAFINIL 200 MG TAB PO SCH (08:05)
[2018-09-08] MEDS: FAMOTIDINE 20 MG TAB PO SCH ×2 (08:06→20:56)
[2018-09-08] MEDS: METOPROLOL SUCCINATE (ER) 100 MG TAB.ER.24H PO SCH (08:06)
[2018-09-08] MEDS: RIVAROXABAN 20 MG TAB PO SCH (08:06)
[2018-09-08] MEDS: DOCUSATE 100 MG CAP PO SCH (08:06)
[2018-09-08] MEDS: MELOXICAM 7.5 MG TAB PO SCH ×2 (08:06→20:55)
[2018-09-08] MEDS: TOPIRAMATE 100 MG TAB PO SCH ×2 (08:06→20:54)
[2018-09-08] MEDS: CYANOCOBALAMIN 500 MCG TAB PO SCH (08:09)
[2018-09-08] MEDS: INSULIN ASPART 100 UNIT/ML 1 ML 10 ML VIAL SQ SCH ×4 (08:09→20:56)
[2018-09-08] MEDS: ONDANSETRON ODT 8 MG TAB.RAPDIS PO PRN ×2 (09:13→19:07)
[2018-09-08] MEDS: ACETAMINOPHEN TAB 325 MG TAB PO PRN (09:14)
--- NOTE | 2018-09-08 10:14 | P.PN ---
Subjective Progress Note Date: 09/08/18 Principal diagnosis: Bipolar 1 disorder, depressed, severe I am angry today because she didn't give me all my pain medicines. Explained in great detail why I don't get all the pain medicines at once including her Reglan which can cause or psychosis. She told me she cannot eat due to her gastroparesis if she doesn't get her Reglan. After she had her Invega last night she had a dystonic reaction and Dr. Montalvo and added benztropine 2 mg po qhs and will convert that to twice a day dosing. Objective - Vital Signs Vital signs: Vital Signs Temp 98.4 F 09/08/18 01:19 Pulse 87 09/08/18 08:12 Resp 16 09/08/18 08:12 BP 136/84 09/08/18 08:12 Pulse Ox - Labs Labs: Abnormal Lab Results - Last 24 Hours (Table) 09/07/18 09/07/18 09/07/18 Range/Units 12:28 17:34 20:12 POC Glucose (mg/dL) 110 H 122 H 168 H (75-99) mg/dL 09/08/18 Range/Units 06:05 POC Glucose (mg/dL) 124 H (75-99) mg/dL Assessment and Plan Assessment: identification data and reason for hospitalization. Patient is a 36-year-old somewhat heavy built white female who was admitted following her evaluation the emergency department where she presented indicating that she is getting very depressed and was having suicidal thoughts. She is being admitted on a voluntary basis. Diagnosis still remains bipolar affective disorder (1) Bipolar 1 disorder, depressed, severe Current Visit: Yes Status: Acute Code(s): F31.4 - BIPOLAR DISORD, CRNT EPSD DEPRESS, SEV, W/O PSYCH FEATURES SNOMED Code(s): 338228579246 (2) Suicidal behavior without attempted self-injury Current Visit: Yes Status: Acute Code(s): R46.89 - OTHER SYMPTOMS AND SIGNS INVOLVING APPEARANCE AND BEHAVIOR SNOMED Code(s): 830961225 Plan: Mental status examination. Patient is somewhat of a heavy built to white female who appears younger than her stated age, in hospital clothes, and without any psychomotor disturbance. Patient comes readily for the interview and was quite pkezfr-sa-[id number] in giving details with good eye contact. She seems to have adequate grooming trends. Attention and concentration could be aroused and sustained without any difficulty. Spontaneous in her speech with no disturbance in the flow, tone, rhythm, and volume. Thought process was without any disturbance, and thought content reveals hopeless helpless feelings and disappointment in her inability to work after having accomplished what she wanted educationally. Patient is depressed, but denies having any active suicidal thoughts. Wants medication to be adjusted so that she can be free from these episodes. In the past she used to have auditory hallucinations but none at present. No delusional ideations. Her orientation to time place and person intact. Remote and recent memory are intact as evidenced by her ability to give details of the past. Immediate memory intact as evidenced by her recall of 3 objects after 5 minutes. General Information intact as she is able to give the current events and past presidents. Patient appears to have adequate degree of insight as to the nature of her medical and psychiatric problems however judgment as dealing with them seem to be defective. Intelligence appears to be above average. Strengths. Supportive mother. Housing availability. Social Security income. Weakness. Traumatic childhood history. Financial problems. Multiple medical problems. Patient will be on close observation for any suicidal ideation or unpredictable behavior. Will encourage patient to participate in all milieu based treatment activities. Will have medical consultation/evaluation and management. She has been started on Tylenol, Maalox, milk of magnesia on a when necessary basis. Increase effexor 225 mgER, increase Topamax 200 mg po bid, invega 3 mg po qhs add Reglan and benztropine for extrapyramidal side effects. Everything was explained and great detail of how not to treat the symptoms but that treat the underlying disease.Mirapex 1.0 mg po qhs and Cogentin 2 mg po qhs and lidoderm 5 % patch to low back Time with Patient: Less than 30
[2018-09-08] MEDS: LIDOCAINE 5% PATCH TOPICAL SCH (10:21)
[2018-09-08] MEDS: MAGNESIUM HYDROXIDE 2,400 MG/10 ML CUP PO PRN (10:58)
[2018-09-08 12:10] LABS: Glucose,Whole Blood 103 mg/dL (75-99)
[2018-09-08 17:13] LABS: Glucose,Whole Blood 109 mg/dL (75-99)
[2018-09-08 20:01] LABS: Glucose,Whole Blood 180 mg/dL (75-99)
[2018-09-08] MEDS: diphenhydrAMINE 50 MG CAP PO SCH (20:55)
[2018-09-08] MEDS: PRAMIPEXOLE 1 MG TAB PO SCH (20:56)
[2018-09-08] MEDS: tiZANidine 4 MG TAB PO SCH (20:56)
[2018-09-08] MEDS: BENZTROPINE MESYLATE 1 MG TAB PO SCH (20:56)
[2018-09-08] MEDS: PALIPERIDONE 3 MG TAB.ER.24 PO SCH (20:58)
[2018-09-08] MEDS ORDERED: VENLAFAXINE HCL ER 75 MG CAP PO SCH (21:00)
[2018-09-08] MEDS: INSULIN DETEMIR 100 UNIT/ML 10 ML VIAL SQ SCH (21:25)
[2018-09-09] MEDS: hydrOXYzine PAMOATE 25 MG CAP PO PRN (02:49)
[2018-09-09 05:55] LABS: Glucose,Whole Blood 115 mg/dL (75-99)
[2018-09-09] MEDS: LEVOTHYROXINE 25 MCG TAB PO SCH (05:55)
[2018-09-09] MEDS: LEVOTHYROXINE 100 MCG TAB PO SCH (05:55)
[2018-09-09] MEDS: INSULIN ASPART 100 UNIT/ML 1 ML 10 ML VIAL SQ SCH ×4 (07:52→21:10)
[2018-09-09] MEDS: DOCUSATE 100 MG CAP PO SCH (07:53)
[2018-09-09] MEDS: MELOXICAM 7.5 MG TAB PO SCH ×2 (07:53→21:08)
[2018-09-09] MEDS: RIVAROXABAN 20 MG TAB PO SCH (07:53)
[2018-09-09] MEDS: CYANOCOBALAMIN 500 MCG TAB PO SCH (07:53)
[2018-09-09] MEDS: AMOXIC-POT CLAV 500-125 MG 1 EACH TAB PO SCH ×2 (07:53→21:07)
[2018-09-09] MEDS: LOSARTAN 25 MG TAB PO SCH (07:53)
[2018-09-09] MEDS: CHOLECALCIFEROL 1,000 UNIT TAB PO SCH (07:54)
[2018-09-09] MEDS: TOPIRAMATE 100 MG TAB PO SCH ×2 (07:54→21:08)
[2018-09-09] MEDS: FAMOTIDINE 20 MG TAB PO SCH ×2 (07:54→21:07)
[2018-09-09] MEDS: FENOFIBRATE 160 MG TAB PO SCH (07:54)
[2018-09-09] MEDS: METOCLOPRAMIDE 10 MG TAB PO SCH ×4 (07:54→17:50)
[2018-09-09] MEDS: METOPROLOL SUCCINATE (ER) 100 MG TAB.ER.24H PO SCH (07:54)
[2018-09-09] MEDS: MODAFINIL 200 MG TAB PO SCH (07:55)
--- NOTE | 2018-09-09 09:13 | P.PN ---
Progress Note - Text Interval history: The patient is found in the hallway she follows me to the library to speak. She states that she was admitted for suicidal ideation with a plan to overdose on medication. She states that she still is having suicidal thoughts but is no longer considering the same plan and has no other plans specified. She states that she goes to groups but they make her very anxious answers to many people in them. She is very concerned about her inability to sleep at night. She reports that she is able to fall asleep but cannot stay asleep. We reviewed her psychotropic medications. She has had several changes while here. There could be several variables as to why she is not sleeping many of which could be environmental. We also discussed that the addition and titration of the Effexor could contribute as well. We discussed moving that to a morning dose and at least temporarily lowering the dose. 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 She wears eyeglasses hygiene and grooming are adequate. Eye contact is good. Speech is fluent spontaneous nonpressured. She demonstrates no tangential thinking loose associations or flight of ideas. She does not appear hypomanic or manic at this time. She reports ongoing suicidal thoughts with no acute intent or plan and feels safe in the hospital. She is reporting no homicidal ideation. She is endorsing no auditory or visual hallucinations or any specific delusions and there is no observed evidence of psychosis. She seated calmly in her wheelchair she demonstrates no verbal or physical aggressiveness she demonstrates no abnormal repetitive movements. She is oriented to person place and date. She demonstrates a mildly anxious affect. Plan: The patient will continue on her current psychotropics however we will move the Effexor XR to a morning dose and reduce it to 150 mg daily. It's likely that the dose could be titrated again but the rapid titration and the evening dosing may be causing an issue asleep. Sleep disturbance could also be due to environmental issues here on the mental health unit. We will encourage her full participation in the milieu we will monitor her for safety. She is looking forward to a visit from family as afternoon.
[2018-09-09] MEDS: POLYETHYLENE GLYCOL 3350 17 GM POWD.PACK PO SCH (09:37)
[2018-09-09] MEDS: VENLAFAXINE HCL ER 150 MG CAP PO SCH (09:38)
[2018-09-09] MEDS: LIDOCAINE 5% PATCH TOPICAL SCH (10:49)
[2018-09-09 12:03] LABS: Glucose,Whole Blood 93 mg/dL (75-99)
[2018-09-09] MEDS: SUMAtriptan SUCCINATE 25 MG TAB PO PRN (12:06)
[2018-09-09] MEDS: ACETAMINOPHEN TAB 325 MG TAB PO PRN (15:46)
[2018-09-09 17:53] LABS: Glucose,Whole Blood 107 mg/dL (75-99)
[2018-09-09 19:55] LABS: Glucose,Whole Blood 184 mg/dL (75-99)
[2018-09-09] MEDS: diphenhydrAMINE 50 MG CAP PO SCH (21:07)
[2018-09-09] MEDS: BENZTROPINE MESYLATE 1 MG TAB PO SCH (21:07)
[2018-09-09] MEDS: PRAMIPEXOLE 1 MG TAB PO SCH (21:08)
[2018-09-09] MEDS: tiZANidine 4 MG TAB PO SCH (21:08)
[2018-09-09] MEDS: PALIPERIDONE 3 MG TAB.ER.24 PO SCH (21:08)
[2018-09-09] MEDS: INSULIN DETEMIR 100 UNIT/ML 10 ML VIAL SQ SCH (21:11)
[2018-09-10 05:34] VITALS: RESP 16
[2018-09-10] MEDS: LEVOTHYROXINE 100 MCG TAB PO SCH (05:53)
[2018-09-10] MEDS: LEVOTHYROXINE 25 MCG TAB PO SCH (05:53)
[2018-09-10 06:21] LABS: Glucose,Whole Blood 107 mg/dL (75-99)
[2018-09-10] MEDS: MELOXICAM 7.5 MG TAB PO SCH ×2 (08:05→20:28)
[2018-09-10] MEDS: CHOLECALCIFEROL 1,000 UNIT TAB PO SCH (08:05)
[2018-09-10] MEDS: MODAFINIL 200 MG TAB PO SCH (08:05)
[2018-09-10] MEDS: LOSARTAN 25 MG TAB PO SCH (08:06)
[2018-09-10] MEDS: FAMOTIDINE 20 MG TAB PO SCH ×2 (08:06→20:23)
[2018-09-10] MEDS: FENOFIBRATE 160 MG TAB PO SCH (08:06)
[2018-09-10] MEDS: TOPIRAMATE 100 MG TAB PO SCH ×2 (08:06→20:17)
[2018-09-10] MEDS: METOPROLOL SUCCINATE (ER) 100 MG TAB.ER.24H PO SCH (08:06)
[2018-09-10] MEDS: RIVAROXABAN 20 MG TAB PO SCH (08:06)
[2018-09-10] MEDS: CYANOCOBALAMIN 500 MCG TAB PO SCH (08:06)
[2018-09-10] MEDS: VENLAFAXINE HCL ER 150 MG CAP PO SCH (08:06)
[2018-09-10] MEDS: DOCUSATE 100 MG CAP PO SCH (08:06)
[2018-09-10] MEDS: INSULIN ASPART 100 UNIT/ML 1 ML 10 ML VIAL SQ SCH ×4 (08:07→20:26)
[2018-09-10] MEDS: POLYETHYLENE GLYCOL 3350 17 GM POWD.PACK PO SCH (08:07)
[2018-09-10] MEDS: AMOXIC-POT CLAV 500-125 MG 1 EACH TAB PO SCH ×2 (08:07→20:15)
[2018-09-10] MEDS: hydrOXYzine PAMOATE 25 MG CAP PO PRN ×2 (10:18→18:03)
[2018-09-10] MEDS: LIDOCAINE 5% PATCH TOPICAL SCH (10:19)
--- NOTE | 2018-09-10 11:39 | P.PN ---
Progress Note - Text Interval history: The patient is found in her room she follows me to an interview room. She states that today is not a very good day as physically she feels drained. She states this does have an impact on her motions. She states that she was able to sleep 8 hours last night. We reviewed her psychotropic medications and her questions were answered. She has been attending groups she has been participating in meals. Overall she feels her symptoms are improving from the time of admission. Mental status exam: The patient is an overweight female appearing her stated age. She is mobile with a wheelchair. Hygiene and grooming are good. She seated calmly in her wheelchair. Speech is fluent spontaneous nonpressured. She denies having any acute suicidal or homicidal ideation intent or plan she is endorsing no auditory or visual hallucinations or any specific delusions. There is no observed evidence of psychosis. She does not appear hypomanic or manic. Insight and judgment improving. She is oriented to person place and date. Affect is constricted today. She demonstrates no verbal or physical aggressiveness. Plan: The patient's will continue on her current psychotropic medication. We will monitor her for safety and encourage full participation in the milieu. Vital signs reviewed.
[2018-09-10] MEDS: ACETAMINOPHEN TAB 325 MG TAB PO PRN (12:12)
[2018-09-10] MEDS: METOCLOPRAMIDE 10 MG TAB PO SCH ×2 (12:13→16:55)
[2018-09-10 12:32] LABS: Glucose,Whole Blood 91 mg/dL (75-99)
[2018-09-10 16:53] LABS: Glucose,Whole Blood 77 mg/dL (75-99)
[2018-09-10] MEDS: ONDANSETRON ODT 8 MG TAB.RAPDIS PO PRN (18:04)
[2018-09-10 20:03] LABS: Glucose,Whole Blood 166 mg/dL (75-99)
[2018-09-10] MEDS: PALIPERIDONE 3 MG TAB.ER.24 PO SCH (20:15)
[2018-09-10] MEDS: tiZANidine 4 MG TAB PO SCH (20:15)
[2018-09-10] MEDS: BENZTROPINE MESYLATE 1 MG TAB PO SCH (20:16)
[2018-09-10] MEDS: PRAMIPEXOLE 1 MG TAB PO SCH (20:17)
[2018-09-10] MEDS: diphenhydrAMINE 50 MG CAP PO SCH (20:17)
[2018-09-10] MEDS: INSULIN DETEMIR 100 UNIT/ML 10 ML VIAL SQ SCH (20:24)
[2018-09-11] MEDS: hydrOXYzine PAMOATE 25 MG CAP PO PRN ×2 (03:45→13:03)
[2018-09-11] MEDS: ONDANSETRON ODT 8 MG TAB.RAPDIS PO PRN ×2 (03:48→13:39)
[2018-09-11 05:05] VITALS: BP 107/65; PULSE 87; TEMP 98
[2018-09-11] MEDS: LEVOTHYROXINE 100 MCG TAB PO SCH (05:30)
[2018-09-11] MEDS: LEVOTHYROXINE 25 MCG TAB PO SCH (05:31)
[2018-09-11 06:01] LABS: Glucose,Whole Blood 125 mg/dL (75-99)
[2018-09-11] MEDS: INSULIN ASPART 100 UNIT/ML 1 ML 10 ML VIAL SQ SCH ×2 (07:39→13:00)
[2018-09-11] MEDS: FENOFIBRATE 160 MG TAB PO SCH (08:13)
[2018-09-11] MEDS: METOCLOPRAMIDE 10 MG TAB PO SCH ×2 (08:13→12:59)
[2018-09-11] MEDS: AMOXIC-POT CLAV 500-125 MG 1 EACH TAB PO SCH (08:15)
[2018-09-11] MEDS: METOPROLOL SUCCINATE (ER) 100 MG TAB.ER.24H PO SCH (08:15)
[2018-09-11] MEDS: VENLAFAXINE HCL ER 150 MG CAP PO SCH (08:20)
[2018-09-11] MEDS: MELOXICAM 7.5 MG TAB PO SCH (08:20)
[2018-09-11] MEDS: CYANOCOBALAMIN 500 MCG TAB PO SCH (08:20)
[2018-09-11] MEDS: FAMOTIDINE 20 MG TAB PO SCH (08:20)
[2018-09-11] MEDS: MODAFINIL 200 MG TAB PO SCH (08:22)
[2018-09-11] MEDS: CHOLECALCIFEROL 1,000 UNIT TAB PO SCH (08:22)
[2018-09-11] MEDS: POLYETHYLENE GLYCOL 3350 17 GM POWD.PACK PO SCH (08:23)
[2018-09-11] MEDS: RIVAROXABAN 20 MG TAB PO SCH (08:23)
[2018-09-11] MEDS: TOPIRAMATE 100 MG TAB PO SCH (08:24)
[2018-09-11] MEDS: DOCUSATE 100 MG CAP PO SCH (08:26)
[2018-09-11] MEDS: LOSARTAN 25 MG TAB PO SCH (09:19)
--- NOTE | 2018-09-11 10:27 | P.DS ---
Providers Date of admission: 09/04/18 16:32 Expected date of discharge: 09/11/18 Attending physician: Curly Al DO Consults: 09/04/18 17:15 Consult Physician Routine Consulting Provider: Nii Remy Consult Reason/Comments: H&P for mental health admission Do you want consulting provider notified?: Yes Primary care physician: Fran Thompson - Discharge Diagnosis(es) (1) Bipolar 1 disorder, depressed, severe Identification data and reason for hospitalization. Patient is a 36-year-old somewhat heavy built white female who was admitted following her evaluation the emergency department where she presented indicating that she is getting very depressed and was having suicidal thoughts. She is being admitted on a voluntary basis. History of present illness. Information obtainable from the patient is fairly reliable, and additional information obtained from review of medical records of her previous medical and psychiatric history at this hospital. Patient was in inpatient care here in March of this year did not continue outpatient psychiatric treatment as advised however states that she was taking her psychotropic medication up until couple of weeks ago. Patient has enough medication at home however reports that she was having significant there gastric discomfort and pain and hence decided not to take the medications. Gradually her depression started getting worse and was having suicidal thoughts with plans of overdose and hence came to the emergency department. 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 Instead patient is on Social Security disability and often feels hopeless and helpless having no enjoyment in life. She has had periods when she is full of energy and motivation, however having problem and sleep indicated of a hypomanic episode. On the other hand she has periods when she sleeps excessive hours and having no energy or motivation feeling that life is not worth living and feeling hopeless. In spite of this and having had a hospitalizations she has not made it a point to have ongoing outpatient psychiatric treatment. Even she is not actively pursuing treatment of her medical problems either. As noted stopped all psychotropic medication due to GI discomfort. Reports having episodes of anxiousness, however on direct inquiry denies having ever experiencing panic episodes. Patient is noted to have access the emergency room services quite a bit. Current Visit: Yes Status: Acute Priority: Low (2) Suicidal behavior without attempted self-injury Current Visit: Yes Status: Acute Priority: Low Hospital Course: Patient is somewhat of a heavy built to white female who appears younger than her stated age, in hospital clothes, and without any psychomotor disturbance. Patient comes readily for the interview and was quite bhwohf-wa-cxet in giving details with good eye contact. She seems to have adequate grooming trends. Attention and concentration could be aroused and sustained without any difficulty. Spontaneous in her speech with no disturbance in the flow, tone, rhythm, and volume. Thought process was without any disturbance, and thought content reveals hopeless helpless feelings and disappointment in her inability to work after having accomplished what she wanted educationally. Patient is depressed, but denies having any active suicidal thoughts. Wants medication to be adjusted so that she can be free from these episodes. In the past she used to have auditory hallucinations but none at present. No delusional ideations. Her orientation to time place and person intact. Remote and recent memory are intact as evidenced by her ability to give details of the past. Immediate memory intact as evidenced by her recall of 3 objects after 5 minutes. General Information intact as she is able to give the current events and past presidents. Patient appears to have adequate degree of insight as to the nature of her medical and psychiatric problems however judgment as dealing with them seem to be defective. Intelligence appears to be above average. Strengths. Supportive mother. Housing availability. Social Security income. Weakness. Traumatic childhood history. Financial problems. Multiple medical problems. Patient will be on close observation for any suicidal ideation or unpredictable behavior. Will encourage patient to participate in all milieu based treatment activities. Will have medical consultation/evaluation and management. She has been started on Tylenol, Maalox, milk of magnesia on a when necessary basis. Increase effexor 150 mgER, increase Topamax 200 mg po bid, invega 3 mg po qhs add Reglan and benztropine for extrapyramidal side effects. Everything was explained and great detail of how not to treat the symptoms but that treat the underlying disease.Mirapex 1.0 mg po qhs and Cogentin 2 mg po qhs and lidoderm 5 % patch to low back Patient Condition at Discharge: Stable Plan - Discharge Summary Discharge Rx Participant: Yes New Discharge Prescriptions: New Amoxic-Pot Clav 500-125 mg [Augmentin 500-125 mg] 1 each PO BID 10 Days #20 tab Benztropine Mesylate [Cogentin] 2 mg PO HS 30 Days #30 tab Cholecalciferol [Vitamin D3] 2,000 unit PO DAILY tab Cyanocobalamin [Vitamin B-12] 2,000 mcg PO DAILY tab diphenhydrAMINE [Benadryl] 150 mg PO HS cap hydrOXYzine PAMOATE [Vistaril] 25 mg PO Q8HR PRN 30 Days #60 cap PRN Reason: Agitation Or Acute Anxiety Insulin Aspart [NovoLOG (formulary)] 0 unit SQ ACHS vial Insulin Detemir [Levemir] 35 unit SQ HS syr Levothyroxine Sodium [Synthroid] 200 mcg PO DAILY@0630 tab Levothyroxine Sodium [Synthroid] 25 mcg PO DAILY@0630 tab Lidocaine 5% Patch [Lidoderm 5% Patch] 1 patch TOPICAL 1100 30 Days #30 patch Meloxicam [Mobic] 7.5 mg PO BID 30 Days #60 tab Metoclopramide [Reglan] 10 mg PO AC-TID tab Paliperidone [Invega] 3 mg PO 2100 30 Days #30 tab.er.24 Polyethylene Glycol 3350 [Miralax] 17 gm PO DAILY powd.pack SUMAtriptan SUCCINATE [Imitrex] 25 mg PO DAILY PRN 30 Days #6 tab PRN Reason: Migraine Headache Topiramate [Topamax] 200 mg PO BID 30 Days #60 tab Venlafaxine HCl ER [Effexor XR] 150 mg PO DAILY 30 Days #30 cap.er.24h Continue tiZANidine [Zanaflex] 8 mg PO HS Rivaroxaban [Xarelto] 20 mg PO DAILY Metoclopramide [Reglan] 10 mg PO ACHS Trimethobenzamide HCl [Tigan] 300 mg PO TID PRN PRN Reason: Nausea Metoprolol Succinate (ER) [Toprol XL] 100 mg PO DAILY Ranitidine HCl 150 mg PO BID Ondansetron [Zofran ODT] 8 mg PO Q6H PRN PRN Reason: Nausea Insulin Lispro [humaLOG Kwikpen] See Protocol SQ ACHS Butalb/APAP/Caff 50-325-40Mg [Fioricet 50-325-40] 1 tab PO Q8H PRN PRN Reason: Migraine Headache Modafinil [Provigil] 200 mg PO DAILY Fenofibrate 160 mg PO DAILY Melatonin 2 mg PO HS Losartan [Cozaar] 25 mg PO DAILY #30 tab Discontinued Insulin Glargine [Lantus] 35 unit SQ HS Topiramate [Topamax] 75 mg PO BID Cyanocobalamin (Vitamin B-12) [Vitamin B-12] 2,000 mcg PO DAILY traMADol HCL [Ultram] 50 mg PO Q6HR PRN PRN Reason: Pain Cholecalciferol (Vitamin D3) [Vitamin D3] 2,000 unit PO DAILY Prochlorperazine Suppository [Compazine] 25 mg RECTAL Q12HR Prochlorperazine Suppository [Compazine] 25 mg RECTAL Q12HR PRN PRN Reason: migraines Levothyroxine Sodium [Levoxyl] 25 mcg PO DAILY Levothyroxine Sodium [Levoxyl] 200 mcg PO DAILY diphenhydrAMINE [Benadryl] 50 mg PO HS #0 Discharge Medication List Rivaroxaban [Xarelto] 20 mg PO DAILY 03/09/17 [History] tiZANidine [Zanaflex] 8 mg PO HS 03/09/17 [History] Metoclopramide [Reglan] 10 mg PO ACHS 07/29/17 [History] Trimethobenzamide HCl [Tigan] 300 mg PO TID PRN 09/25/17 [History] Metoprolol Succinate (ER) [Toprol XL] 100 mg PO DAILY 10/24/17 [History] Ranitidine HCl 150 mg PO BID 12/17/17 [History] Insulin Lispro [humaLOG Kwikpen] See Protocol SQ ACHS 05/23/18 [History] Ondansetron [Zofran ODT] 8 mg PO Q6H PRN 05/23/18 [History] Butalb/APAP/Caff 50-325-40Mg [Fioricet 50-325-40] 1 tab PO Q8H PRN 06/11/18 [ History] Fenofibrate 160 mg PO DAILY 09/01/18 [History] Modafinil [Provigil] 200 mg PO DAILY 09/01/18 [History] Melatonin 2 mg PO HS 09/02/18 [History] Losartan [Cozaar] 25 mg PO DAILY #30 tab 09/04/18 [Rx] Amoxic-Pot Clav 500-125 mg [Augmentin 500-125 mg] 1 each PO BID 10 Days #20 tab 09/11/18 [Rx] Benztropine Mesylate [Cogentin] 2 mg PO HS 30 Days #30 tab 09/11/18 [Rx] Cholecalciferol [Vitamin D3] 2,000 unit PO DAILY tab 09/11/18 [Rx] Cyanocobalamin [Vitamin B-12] 2,000 mcg PO DAILY tab 09/11/18 [Rx] Insulin Aspart [NovoLOG (formulary)] 0 unit SQ ACHS vial 09/11/18 [Rx] Insulin Detemir [Levemir] 35 unit SQ HS syr 09/11/18 [Rx] Levothyroxine Sodium [Synthroid] 25 mcg PO DAILY@0630 tab 09/11/18 [Rx] Levothyroxine Sodium [Synthroid] 200 mcg PO DAILY@0630 tab 09/11/18 [Rx] Lidocaine 5% Patch [Lidoderm 5% Patch] 1 patch TOPICAL 1100 30 Days #30 patch [Rx] Meloxicam [Mobic] 7.5 mg PO BID 30 Days #60 tab 09/11/18 [Rx] Metoclopramide [Reglan] 10 mg PO AC-TID tab 09/11/18 [Rx] Paliperidone [Invega] 3 mg PO 2100 30 Days #30 tab.er.24 09/11/18 [Rx] Polyethylene Glycol 3350 [Miralax] 17 gm PO DAILY powd.pack 09/11/18 [Rx] SUMAtriptan SUCCINATE [Imitrex] 25 mg PO DAILY PRN 30 Days #6 tab 09/11/18 [Rx] Topiramate [Topamax] 200 mg PO BID 30 Days #60 tab 09/11/18 [Rx] Venlafaxine HCl ER [Effexor XR] 150 mg PO DAILY 30 Days #30 cap.er.24h 09/11/18 [Rx] diphenhydrAMINE [Benadryl] 150 mg PO HS cap 09/11/18 [Rx] hydrOXYzine PAMOATE [Vistaril] 25 mg PO Q8HR PRN 30 Days #60 cap 09/11/18 [Rx] Discharge Disposition: HOME SELF-CARE
[2018-09-11] MEDS: LIDOCAINE 5% PATCH TOPICAL SCH (10:34)
[2018-09-11 12:50] LABS: Glucose,Whole Blood 84 mg/dL (75-99)
== END 2018-09-11 15:10 | disposition home or self-care (01) | DRG 885 ==
LOC: 3MHU 16:32
PROVIDERS: ADMIT Psychiatry & Neurology Psychiatry; ATTEND Psychiatry & Neurology Psychiatry
DX: F31.4 Bipolar disorder, current episode depressed, severe, without psychotic features (principal); R45.851 Suicidal ideations; E06.3 Autoimmune thyroiditis; E11.43 Type 2 diabetes mellitus with diabetic autonomic (poly)neuropathy; E28.2 Polycystic ovarian syndrome; E78.5 Hyperlipidemia, unspecified; G43.909 Migraine, unspecified, not intractable, without status migrainosus; G47.00 Insomnia, unspecified; I10 Essential (primary) hypertension; K31.84 Gastroparesis; L93.0 Discoid lupus erythematosus; N31.9 Neuromuscular dysfunction of bladder, unspecified; Z79.01 Long term (current) use of anticoagulants; Z79.4 Long term (current) use of insulin; Z79.899 Other long term (current) drug therapy; Z82.49 Family history of ischemic heart disease and other diseases of the circulatory system; Z83.3 Family history of diabetes mellitus; Z86.718 Personal history of other venous thrombosis and embolism; Z86.73 Personal history of transient ischemic attack (TIA), and cerebral infarction without residual deficits; Z87.440 Personal history of urinary (tract) infections; Z88.8 Allergy status to other drugs, medicaments and biological substances; Z91.5 Personal history of self-harm; Z79.890 Hormone replacement therapy; Z88.7 Allergy status to serum and vaccine
CPT/HCPCS: 80061; 83036; 84443

== ENCOUNTER → 2018-09-26 | Outpatient (CLI) | payer MEDICARE, OTHER ==
--- NOTE | 2018-09-26 15:57 | NM ---
EXAMINATION TYPE: NM hepatobiliary w EF DATE OF EXAM: 09/26/2018 COMPARISON: CT abdomen pelvis 08/19/2018, prior HIDA scan dated 07/05/2011 HISTORY: Right upper quadrant pain and nausea TECHNIQUE: After the intravenous administration of 5 mCi Tc 99m Mebrofenin hepatobiliary scintigraphy is performed. Immediate images post injection. FINDINGS: There is satisfactory initial accumulation of tracer by the liver. The gallbladder is visualized wit hin 5 minutes. The small bowel activity is noted within 50 minutes. At one hour 8 ounces of oral en sure plus is given to mimic CCK and gallbladder ejection fraction is calculated at 92 %, above the up per limit of normal range. Therefore there is no scintigraphic evidence of cystic or common bile anderson t obstruction to suggest acute cholecystitis. IMPRESSION: Findings may be indicative of hyper dynamic gallbladder, no cystic duct obstruction.
== END | disposition home or self-care (01) ==
LOC: RADNMMAIN 12:59
PROVIDERS: ATTEND Nurse Practitioner Adult Health
DX: R10.11 Right upper quadrant pain (principal)
CPT/HCPCS: 78226; A9537

== ENCOUNTER 2018-11-15 13:37 | Emergency (ER) | payer MEDICARE, OTHER ==
[2018-11-15 14:12] VITALS: RESP 18; TEMP 98.7
--- NOTE | 2018-11-15 15:06 | ED ---
General Adult HPI - General Chief complaint: Urogenital Stated complaint: headache, symptoms of UTI, nausea, dehydrated Source: patient Mode of arrival: wheelchair Limitations: no limitations - History of Present Illness Initial comments: Dictation was produced using B2Brev dictation software. please excuse any grammatical, word or spelling errors. Chief Complaint: 38-year-old female past medical history of mitochondrial disease, lupus, bipolar disease presents with urinary symptoms. History of Present Illness: 38-year-old female with multiple comorbidities including mitochondrial disease, DVT, CVA, lupus disorder presents with urinary symptoms. Patient states that she's had severe urinary tract infections before. Patient states her chronic diseases put her at risk for serious bacterial infections. Patient states that she's been having symptoms for approximately 2-3 days. Patient complains of burning on urination. Patient does have a Mediport for intravenous fluids possible administration of IV antibiotics. Patient is on multiple medications. Patient denies chance of being . Patient is not sexually active. The ROS documented in this emergency department record has been reviewed and confirmed by me. Those systems with pertinent positive or negative responses have been documented in the HPI. All other systems are other negative and/or noncontributory. - Related Data Home Medications Medication Instructions Recorded Confirmed Rivaroxaban [Xarelto] 20 mg PO DAILY 03/09/17 11/15/18 tiZANidine [Zanaflex] 8 mg PO HS 03/09/17 11/15/18 Metoclopramide [Reglan] 10 mg PO ACHS 07/29/17 11/15/18 Trimethobenzamide HCl [Tigan] 300 mg PO TID PRN 09/25/17 11/15/18 Metoprolol Succinate (ER) [Toprol 100 mg PO DAILY 10/24/17 11/15/18 XL] Ranitidine HCl 150 mg PO BID 12/17/17 11/15/18 Insulin Lispro [humaLOG Kwikpen] See Protocol SQ ACHS 05/23/18 11/15/18 Ondansetron [Zofran ODT] 8 mg PO Q6H PRN 05/23/18 11/15/18 Butalb/APAP/Caff 50-325-40Mg 1 tab PO Q8H PRN 06/11/18 11/15/18 [Fioricet 50-325-40] Fenofibrate 160 mg PO DAILY 10/12/18 12/26/18 Modafinil [Provigil] 200 mg PO DAILY 09/01/18 11/15/18 Melatonin 2 mg PO HS 09/02/18 11/15/18 Meloxicam [Mobic] 7.5 mg PO DAILY 09/15/18 11/15/18 Topiramate [Topamax] 75 mg PO BID 10/17/18 11/15/18 Gabapentin [Neurontin] 100 mg PO BID 11/15/18 11/15/18 Gabapentin [Neurontin] 300 mg PO HS 11/15/18 11/15/18 Lurasidone [Latuda] 20 mg PO DAILY 11/15/18 11/15/18 Previous Rx's Medication Instructions Recorded Losartan [Cozaar] 25 mg PO DAILY #30 tab 09/04/18 Cholecalciferol [Vitamin D3] 2,000 unit PO DAILY tab 09/11/18 Cyanocobalamin [Vitamin B-12] 2,000 mcg PO DAILY tab 09/11/18 Insulin Aspart [NovoLOG 0 unit SQ ACHS vial 09/11/18 (formulary)] Insulin Detemir [Levemir] 35 unit SQ HS syr 09/11/18 Levothyroxine Sodium [Synthroid] 25 mcg PO DAILY@0630 tab 09/11/18 Levothyroxine Sodium [Synthroid] 200 mcg PO DAILY@0630 tab 09/11/18 Lidocaine 5% Patch [Lidoderm 5% 1 patch TOPICAL 1100 30 Days #30 09/11/18 Patch] patch Metoclopramide [Reglan] 10 mg PO AC-TID tab 09/11/18 Polyethylene Glycol 3350 [Miralax] 17 gm PO DAILY powd.pack 09/11/18 SUMAtriptan SUCCINATE [Imitrex] 25 mg PO DAILY PRN 30 Days #6 tab 09/11/18 Venlafaxine HCl ER [Effexor XR] 150 mg PO DAILY 30 Days #30 09/11/18 cap.er.24h diphenhydrAMINE [Benadryl] 150 mg PO HS cap 09/11/18 hydrOXYzine PAMOATE [Vistaril] 25 mg PO Q8HR PRN 30 Days #60 cap 09/11/18 Allergies Allergy/AdvReac Type Severity Reaction Status Date / Time barium sulfate Allergy Anaphylaxis Verified 11/15/18 15:48 diphtheria, pertussis, Allergy Unknown Verified 11/15/18 15:48 tetanus vacc doxepin [Doxepin] Allergy Anaphylaxis Verified 11/15/18 15:48 ephedrine Allergy Unknown Verified 11/15/18 15:48 ertapenem [From Invanz] Allergy Rash/Hives Verified 11/15/18 15:48 influenza virus vaccine, Allergy Anaphylaxis Verified 11/15/18 15:48 specific [Influenza Virus Vacc,Specific] promethazine HCl Allergy Anaphylaxis Verified 11/15/18 15:48 [From Phenergan] doxycycline AdvReac Nausea & Verified 11/15/18 15:48 Vomiting & Diarrhea peanut AdvReac Nausea & Verified 11/15/18 15:48 Vomiting peanut oil AdvReac Nausea & Verified 11/15/18 15:48 Vomiting Pertussis Vaccines AdvReac fever/seizu Verified 11/15/18 15:48 re pseudoephedrine AdvReac Chest Pain Verified 11/15/18 15:48 pseudoephedrine HCl AdvReac Chest Pain Verified 11/15/18 15:48 [From Sudafed] sulfamethoxazole AdvReac Nausea & Verified 11/15/18 15:48 [From Bactrim] Vomiting trimethoprim [From Bactrim] AdvReac Nausea & Verified 11/15/18 15:48 Vomiting Review of Systems ROS Statement: Those systems with pertinent positive or pertinent negative responses have been documented in the HPI. ROS Other: All systems not noted in ROS Statement are negative. Past Medical History Past Medical History: Chest Pain / Angina, CVA/TIA, Diabetes Mellitus, Deep Vein Thrombosis (DVT), Neurologic Disorder, Syncope, Thyroid Disorder Additional Past Medical History / Comment(s): "STROKE LIKE EPISODE D/T MITOCHRONDIAL DISEASE HAD WORK UP DONE AT [facility]. WEARS A BRACE ON LT ANKLE AND LT WRIST".Dysautonomia-progressive neurological disorder, lupus/LUPUS ANTICOAGULANTS, 2004 CVA without residual, ana maria's disease, lymphedema Lt arm d/t DVTs , v-tach, pituitary microadenoma. "mitochondrial disease". patent foramen ovale, narcolepsy, gastropareis, IDDM type II, uti's, falls, orthostatic hypotension/syncope,migraines with hemiplegia, pernicious anemia, polycystic ovarian syndrome, neuropathy bilateral legs/fee-mild, uterine ablation August 2015/patient no longer has periods-had uterine ablation uti's. , midline access for fluids-current access issues has contacted dr quilgey. History of Any Multi-Drug Resistant Organisms: ESBL, MRSA Date of last positivie culture/infection: 03/09/17 MRSA/ 05/17/18 ESBL MDRO Source:: MRSA LEFT ARM,/ESBL URINE ECOLI Past Surgical History: Ablation, Uterine Ablation Additional Past Surgical History / Comment(s): colonscopy/egd, angie, stress test. PORT-A -CATH INSERTION 04-28-18 Past Anesthesia/Blood Transfusion Reactions: No Reported Reaction Additional Past Anesthesia/Blood Transfusion Reaction / Comment(s): patient states "It takes a lot of anesthesia for my body to react". Pt has received blood in past without reaction. Past Psychological History: Bipolar, Depression Smoking Status: Never smoker - Past Family History Brother(s) Family Medical History: Diabetes Mellitus, Hyperlipidemia, Hypertension Additional Family Medical History / Comment(s): Patient states she has 1 brother with no major medical problems. Father Family Medical History: Diabetes Mellitus, Hyperlipidemia, Hypertension Additional Family Medical History / Comment(s): DAD IS 70 YEARS OLD. Patient states she does not have any contact with her father and does not know his medical history. Mother Family Medical History: Blood Disorder, Chest Pain / Angina, CVA/TIA, Hyperlipidemia, Hypertension Additional Family Medical History / Comment(s): AGE 62 HAS LUPUS, blood pressure swings high to low, antiphospholipid antibody syndrome General Exam - General Exam Comments Initial Comments: PHYSICAL EXAM: General Impression: Alert and oriented x3, not in acute distress HEENT: Normocephalic atraumatic, extra-ocular movements intact, pupils equal and reactive to light bilaterally, mucous membranes moist. Cardiovascular: Heart regular rate and rhythm, S1&S2 audible, no murmurs, rubs or gallops Chest: Lungs clear to auscultation bilaterally, no rhonchi, no wheeze, no rales Abdomen: Bowel sounds present, abdomen soft, non-tender, non-distended, no organomegaly Musculoskeletal: Pulses present and equal in all extremities, no peripheral edema Motor: Power 5/5 bilaterally, no focal deficits noted Neurological: CN II-XII grossly intact, no focal motor or sensory deficits noted Skin: Intact with no visualized rashes Psych: Normal affect and mood Limitations: no limitations Course Vital Signs 11/15/18 14:10 Temperature 98.7 F Pulse Rate 105 H Respiratory 18 Rate Blood Pressure 127/70 O2 Sat by Pulse 98 Oximetry Medical Decision Making - Medical Decision Making ED course: 38-year-old female with multiple chronic comorbidities presents with urinary symptoms. Vital signs upon arrival shows heart rate of 105, rest of vital signs within acceptable limits. Physical examination is benign. Medications reviewed. Patient denies history of immunosuppressive medications.Urinalysis obtained showing no findings to suggest UTI. Patient will be discharged. Told to look out for urine culture results to warrant the need for antibiotics. Patient understandable and agreeable to plan. - Lab Data Lab Results 11/15/18 11/15/18 Range/Units 15:05 15:05 Urine Color Yellow Urine Appearance Clear (Clear) Urine pH 5.5 (5.0-8.0) Ur Specific [place] 1.014 (1.001-1.035) Urine Protein Negative (Negative) Urine Glucose (UA) Negative (Negative) Urine Ketones Negative (Negative) Urine Blood Negative (Negative) Urine Nitrite Negative (Negative) Urine Bilirubin Negative (Negative) Urine Urobilinogen <2.0 (<2.0) mg/dL Ur Leukocyte Esterase Negative (Negative) Urine HCG, Qual Not Detected (Not Detectd) Disposition Clinical Impression: Urinary tract infection symptoms Disposition: HOME SELF-CARE Condition: Good Instructions: Urinary Tract Infection in Women (ED) Is patient prescribed a controlled substance at d/c from ED?: No Referrals: Fran Thompson MD [Primary Care Provider] - 1-2 days Time of Disposition: 17:27
[2018-11-15 15:24] LABS: Appearance,Urine Clear (Clear); Bilirubin,Urine Negative (Negative); Blood,Urine Negative (Negative); Color,Urine Yellow; Glucose,Urine (UA) Negative (Negative); Ketones,Urine Negative (Negative); Leukocyte Esterase,Urine Negative (Negative); Nitrite,Urine Negative (Negative); PH, Urine 5.5 (5.0-8.0); Protein,Urine Negative (Negative); Specific Gravity,Urine 1.014 (1.001-1.035); Urobilinogen,Urine <2.0 mg/dL (<2.0)
[2018-11-15] MEDS ORDERED: BUTALB/APAP/CAFF 50-325-40MG TAB PO STA (17:03)
[2018-11-15 17:34] VITALS: BP 123/78; PULSE 72
== END 2018-11-15 17:33 | disposition home or self-care (01) ==
LOC: EC 13:37
DX: N39.8 Other specified disorders of urinary system (principal); E06.3 Autoimmune thyroiditis; E11.40 Type 2 diabetes mellitus with diabetic neuropathy, unspecified; F31.9 Bipolar disorder, unspecified; M32.9 Systemic lupus erythematosus, unspecified; G47.419 Narcolepsy without cataplexy; G43.909 Migraine, unspecified, not intractable, without status migrainosus; Z86.14 Personal history of Methicillin resistant Staphylococcus aureus infection; Z86.73 Personal history of transient ischemic attack (TIA), and cerebral infarction without residual deficits; Z86.718 Personal history of other venous thrombosis and embolism; Z79.1 Long term (current) use of non-steroidal anti-inflammatories (NSAID); Z79.01 Long term (current) use of anticoagulants; Z79.4 Long term (current) use of insulin; Z79.899 Other long term (current) drug therapy; Z88.7 Allergy status to serum and vaccine; Z88.1 Allergy status to other antibiotic agents; Z91.010 Allergy to peanuts; Z88.2 Allergy status to sulfonamides; Z88.8 Allergy status to other drugs, medicaments and biological substances
CPT/HCPCS: 81003; 81025; 87086; 99283

== ENCOUNTER 2018-11-20 13:47 | Emergency (ER) | payer MEDICARE, OTHER ==
--- NOTE | 2018-11-20 15:47 | ED ---
Headache HPI - General Chief Complaint: Headache Stated Complaint: headache Time Seen by Provider: 11/20/18 15:25 Mode of arrival: wheelchair Limitations: no limitations - History of Present Illness Initial Comments: 38-year-old female past medical history of mitochondrial disease, chronic migraines with hemiparesis presented today for chief complaint of migraine. Patient states her migraine began last night. She states she did note some hemiparesis at this time however she states it has since improved. Patient states that her migraine feels identical to previous migraines, she denies any change in character sick. She denies this being the worse headache of her life. Patient denies a speech changes, memory changes,'s service speech, facial asymmetry, weakness of the right upper extremity to the right lower external ears, numbness, tingling or paresthesias. Patient denies any fever, chills, night sweats. Patient denies any neck stiffness. Upon arrival patient appears well, there are no signs of acute distress. Vital signs within acceptable limits. Patient denies any recent shortness of breath, chest pain, back pain, abdominal pain, nausea or vomiting, numbness or tingling, dysuria or hematuria, constipation or diarrhea, or visual changes, or any other complaints. - Related Data Home Medications Medication Instructions Recorded Confirmed Rivaroxaban [Xarelto] 20 mg PO DAILY 03/09/17 11/15/18 tiZANidine [Zanaflex] 8 mg PO HS 03/09/17 11/15/18 Metoclopramide [Reglan] 10 mg PO [facility] 07/29/17 11/15/18 Trimethobenzamide HCl [Tigan] 300 mg PO TID PRN 09/25/17 11/15/18 Metoprolol Succinate (ER) [Toprol 100 mg PO DAILY 10/24/17 11/15/18 XL] Ranitidine HCl 150 mg PO BID 12/17/17 11/15/18 Insulin Lispro [humaLOG Kwikpen] See Protocol SQ [facility] 05/23/18 11/15/18 Ondansetron [Zofran ODT] 8 mg PO Q6H PRN 05/23/18 11/15/18 Butalb/APAP/Caff 50-325-40Mg 1 tab PO Q8H PRN 06/11/18 11/15/18 [Fioricet 50-325-40] Fenofibrate 160 mg PO DAILY 09/01/18 11/15/18 Modafinil [Provigil] 200 mg PO DAILY 09/01/18 11/15/18 Melatonin 2 mg PO HS 09/02/18 11/15/18 Meloxicam [Mobic] 7.5 mg PO DAILY 09/15/18 11/15/18 Topiramate [Topamax] 75 mg PO BID 10/17/18 11/15/18 Gabapentin [Neurontin] 100 mg PO BID 11/15/18 11/15/18 Gabapentin [Neurontin] 300 mg PO HS 11/15/18 11/15/18 Lurasidone [Latuda] 20 mg PO DAILY 11/15/18 11/15/18 Previous Rx's Medication Instructions Recorded Losartan [Cozaar] 25 mg PO DAILY #30 tab 09/04/18 Cholecalciferol [Vitamin D3] 2,000 unit PO DAILY tab 09/11/18 Cyanocobalamin [Vitamin B-12] 2,000 mcg PO DAILY tab 09/11/18 Insulin Aspart [NovoLOG 0 unit SQ ACHS vial 09/11/18 (formulary)] Insulin Detemir [Levemir] 35 unit SQ HS syr 09/11/18 Levothyroxine Sodium [Synthroid] 25 mcg PO DAILY@0630 tab 09/11/18 Levothyroxine Sodium [Synthroid] 200 mcg PO DAILY@0630 tab 09/11/18 Lidocaine 5% Patch [Lidoderm 5% 1 patch TOPICAL 1100 30 Days #30 09/11/18 Patch] patch Metoclopramide [Reglan] 10 mg PO AC-TID tab 09/11/18 Polyethylene Glycol 3350 [Miralax] 17 gm PO DAILY powd.pack 09/11/18 SUMAtriptan SUCCINATE [Imitrex] 25 mg PO DAILY PRN 30 Days #6 tab 09/11/18 Venlafaxine HCl ER [Effexor XR] 150 mg PO DAILY 30 Days #30 09/11/18 cap.er.24h diphenhydrAMINE [Benadryl] 150 mg PO HS cap 09/11/18 hydrOXYzine PAMOATE [Vistaril] 25 mg PO Q8HR PRN 30 Days #60 cap 09/11/18 Allergies Allergy/AdvReac Type Severity Reaction Status Date / Time barium sulfate Allergy Anaphylaxis Verified 11/20/18 14:19 diphtheria, pertussis, Allergy Unknown Verified 11/20/18 14:19 tetanus vacc doxepin [Doxepin] Allergy Anaphylaxis Verified 11/20/18 14:19 ephedrine Allergy Unknown Verified 11/20/18 14:19 ertapenem [From Invanz] Allergy Rash/Hives Verified 11/20/18 14:19 influenza virus vaccine, Allergy Anaphylaxis Verified 11/20/18 14:19 specific [Influenza Virus Vacc,Specific] promethazine HCl Allergy Anaphylaxis Verified 11/20/18 14:19 [From Phenergan] doxycycline AdvReac Nausea & Verified 11/20/18 14:19 Vomiting & Diarrhea peanut AdvReac Nausea & Verified 11/20/18 14:19 Vomiting peanut oil AdvReac Nausea & Verified 11/20/18 14:19 Vomiting Pertussis Vaccines AdvReac fever/seizu Verified 11/20/18 14:19 re pseudoephedrine AdvReac Chest Pain Verified 11/20/18 14:19 pseudoephedrine HCl AdvReac Chest Pain Verified 11/20/18 14:19 [From Sudafed] sulfamethoxazole AdvReac Nausea & Verified 11/20/18 14:19 [From Bactrim] Vomiting trimethoprim [From Bactrim] AdvReac Nausea & Verified 11/20/18 14:19 Vomiting Review of Systems ROS Statement: Those systems with pertinent positive or pertinent negative responses have been documented in the HPI. ROS Other: All systems not noted in ROS Statement are negative. Past Medical History Past Medical History: Chest Pain / Angina, CVA/TIA, Diabetes Mellitus, Deep Vein Thrombosis (DVT), Neurologic Disorder, Syncope, Thyroid Disorder Additional Past Medical History / Comment(s): "STROKE LIKE EPISODE D/T MITOCHRONDIAL DISEASE HAD WORK UP DONE AT [facility]. WEARS A BRACE ON LT ANKLE AND LT WRIST".Dysautonomia-progressive neurological disorder, lupus/LUPUS ANTICOAGULANTS, 2004 CVA without residual, ana maria's disease, lymphedema Lt arm d/t DVTs , v-tach, pituitary microadenoma. "mitochondrial disease". patent foramen ovale, narcolepsy, gastropareis, IDDM type II, uti's, falls, orthostatic hypotension/syncope,migraines with hemiplegia, pernicious anemia, polycystic ovarian syndrome, neuropathy bilateral legs/fee-mild, uterine ablation August 2015/patient no longer has periods-had uterine ablation uti's. , midline access for fluids-current access issues has contacted dr quigley. History of Any Multi-Drug Resistant Organisms: ESBL, MRSA Date of last positivie culture/infection: 03/09/17 MRSA/ 05/17/18 ESBL MDRO Source:: MRSA LEFT ARM,/ESBL URINE [facility]OLI Past Surgical History: Ablation, Uterine Ablation Additional Past Surgical History / Comment(s): colonscopy/egd, angie, stress test. PORT-A -CATH INSERTION 04-28-18 Past Anesthesia/Blood Transfusion Reactions: No Reported Reaction Additional Past Anesthesia/Blood Transfusion Reaction / Comment(s): patient states "It takes a lot of anesthesia for my body to react". Pt has received blood in past without reaction. Past Psychological History: Bipolar, Depression Smoking Status: Never smoker Past Alcohol Use History: None Reported Past Drug Use History: None Reported - Past Family History Brother(s) Family Medical History: Diabetes Mellitus, Hyperlipidemia, Hypertension Additional Family Medical History / Comment(s): Patient states she has 1 brother with no major medical problems. Father Family Medical History: Diabetes Mellitus, Hyperlipidemia, Hypertension Additional Family Medical History / Comment(s): DAD IS 70 YEARS OLD. Patient states she does not have any contact with her father and does not know his medical history. Mother Family Medical History: Blood Disorder, Chest Pain / Angina, CVA/TIA, Hyperlipidemia, Hypertension Additional Family Medical History / Comment(s): AGE 62 HAS LUPUS, blood pressure swings high to low, antiphospholipid antibody syndrome General Exam - General Exam Comments Initial Comments: General: The patient is awake and alert, in no distress, and does not appear acutely ill. Eye: Pupils are equal, round and reactive to light, extra-ocular movements are intact. No nystagmus. There is normal conjunctiva bilaterally. No signs of icterus. No photophobia. Ears, nose, mouth and throat: There are moist mucous membranes and no oral lesions. Neck: The neck is supple, there is no tenderness or JVD. Cardiovascular: There is a regular rate and rhythm. No murmur, rub or gallop is appreciated. Respiratory: Lungs are clear to auscultation, respirations are non-labored, breath sounds are equal. No wheezes, stridor, rales, or rhonchi. Gastrointestinal: Soft, non-distended, non-tender abdomen without masses or organomegaly noted. There is no rebound or guarding present. No CVA tenderness. Bowel sounds are unremarkable. Musculoskeletal: Normal ROM, no tenderness. Strength 5/5. Sensation intact. Pulses equal bilaterally 2+. Neurological: A&O x 3. CN II-XII intact, memory intact to immediately, intermediate and [facility] recall. Able to follow simple verbal. Able to name a common object (pen). High quality, labial (pa) and lingual (la) speech. Low quality posterior pharynx/larynx (ga) voice sounds. Able to express general knowledge (days in a week). No hemineglect or inattention noted. Finger agnosia (-) and spatially oriented (identified L index finger touched R shoulder with L index finger). Light touch and temperature sensation present over the face, chest, abdomen, back, UE bilaterally, and LE bilaterally. Able to localize point during point localization b/l and extinction. No visible bulk atrophy, hypertrophy, fasciculations, or myoclonus of the UE or LE b/l. Full PROM in UE and LE b/l. Coordinated and even demonstration of hand flip, finger to thumb, and toe tap b/l. No nuchal rigidity. (-) Brudzinskis and Kernig signs. Mild weakness that improves with distraction of the left UE and LE. Skin: Skin is warm and dry and no rashes or lesions are noted. Psychiatric: Cooperative, appropriate mood & affect, normal judgment. Limitations: no limitations Course Vital Signs 11/20/18 11/20/18 14:17 19:12 Temperature 98.8 F 98.0 F Pulse Rate 104 H 87 Respiratory 20 18 Rate Blood Pressure 146/74 140/78 O2 Sat by Pulse 98 98 Oximetry Medical Decision Making - Medical Decision Making Patient denies any acute changes and migraine. We discussed imaging however patient refused stating she has had multiple CTs in the past all negative. She states this feels like her typical migraine with mild hemiparesis. Patient states she would just like treatment of migraine. Patient given Toradol, Benadryl and Zofran. Patient states she has significant alleviation of symptoms with this combination. Patient requesting discharge upon reevaluation. Patient was discharged in stable condition appearing well. Patient states she had marked improvement in her left-sided hemiparesis. Patient transferred to her wheelchair from bed without difficulty. Patient discharged in stable condition appearing well. Case discussed with Dr. Owens prior to discharge he agrees with impression and plan. Return parameters were discussed at length prior to patient's discharge, patient verbalized understanding denied questions at this time. Disposition Clinical Impression: Migraine Disposition: HOME SELF-CARE Condition: Good Instructions: Acute Headache (ED) Additional Instructions: Please use medication as discussed. Please follow-up with family doctor in the next 2 days. Please return to emergency room if the symptoms increase or worsen or for any other concerns. Is patient prescribed a controlled substance at d/c from ED?: No Referrals: Fran Thompson MD [Primary Care Provider] - 1-2 days Time of Disposition: 17:54
[2018-11-20] MEDS ORDERED: ONDANSETRON 4 MG/2 ML VIAL IVP STA (16:08)
[2018-11-20] MEDS ORDERED: diphenhydrAMINE 50 MG/ML 1 ML VIAL IVP STA (16:08)
[2018-11-20] MEDS ORDERED: KETOROLAC 30 MG/ML 1 ML VIAL IVP STA (16:08)
[2018-11-20 19:13] VITALS: BP 140/78; PULSE 87; RESP 18; TEMP 98
== END 2018-11-20 19:12 | disposition home or self-care (01) ==
LOC: EC 13:47
DX: G43.909 Migraine, unspecified, not intractable, without status migrainosus (principal); E11.40 Type 2 diabetes mellitus with diabetic neuropathy, unspecified; M32.9 Systemic lupus erythematosus, unspecified; G47.419 Narcolepsy without cataplexy; F31.9 Bipolar disorder, unspecified; Z86.14 Personal history of Methicillin resistant Staphylococcus aureus infection; Z53.29 Procedure and treatment not carried out because of patient's decision for other reasons; Z86.73 Personal history of transient ischemic attack (TIA), and cerebral infarction without residual deficits; Z86.718 Personal history of other venous thrombosis and embolism; Z79.1 Long term (current) use of non-steroidal anti-inflammatories (NSAID); Z79.4 Long term (current) use of insulin; Z79.01 Long term (current) use of anticoagulants; Z79.899 Other long term (current) drug therapy; Z88.7 Allergy status to serum and vaccine; Z88.2 Allergy status to sulfonamides; Z91.010 Allergy to peanuts; Z88.1 Allergy status to other antibiotic agents; Z88.8 Allergy status to other drugs, medicaments and biological substances
CPT/HCPCS: 99283; 96374; 96375 ×2; J1200; J2405; J1885

== ENCOUNTER → 2018-12-05 | Outpatient (CLI) | payer MEDICARE, OTHER ==
[2018-12-04 16:19] VITALS: BMI 39.9
[2018-12-05 13:22] VITALS: BP 126/83; PULSE 94; RESP 18
--- NOTE | 2018-12-05 20:58 | P.PAINCN ---
History of Present Illness - Reason for Consult Consult date: 12/05/18 - History of Present Illness 38-year-old female past medical history of chronic and generalized muscle pain for more than 10 years, she is diagnosed with mitochondrial disease, and chronic lactic acidosis, patient had history of hemiplegic migraines, bipolar disorder and narcolepsy, also she was diagnosed with occipital neuralgia patient has severe neck pain with radiation to the top of the head, patient get a different kind of medication management, and alternatives to control her headache, she is currently on Neurontin 300 mg 3 times a day and magnesium oxide and Topamax 75 mg twice a day and Zanaflex 4 mg every morning and 8 mg every afternoon and she continued to have severe neck pain and headache, patient had computed tomography scan of the brain was negative for any abnormalities, patient cannot take Ultram because it could interfere with her Effexor Past Medical History Past Medical History: Chest Pain / Angina, CVA/TIA, Diabetes Mellitus, Deep Vein Thrombosis (DVT), Neurologic Disorder, Syncope, Thyroid Disorder Additional Past Medical History / Comment(s): "STROKE LIKE EPISODE D/T MITOCHRONDIAL DISEASE HAD WORK UP DONE AT [facility]..Dysautonomia-progressive neurological disorder, lupus/LUPUS ANTICOAGULANTS, 2004 CVA without residual, ana maria's disease, lymphedema Lt arm d/t DVTs , v-tach, pituitary microadenoma. "mitochondrial disease". patent foramen ovale, narcolepsy, gastropareis, uti's, falls, orthostatic hypotension/syncope,migraines with hemiplegia, pernicious anemia, polycystic ovarian syndrome, neuropathy bilateral legs/feet , History of Any Multi-Drug Resistant Organisms: ESBL, MRSA Year Discovered:: 03/09/17 MRSA/ 05/17/18 ESBL MDRO Source:: MRSA LEFT ARM,/ESBL URINE [facility] Past Surgical History: Uterine Ablation Additional Past Surgical History / Comment(s): colonscopy/egd, GERSON, mediport Past Anesthesia/Blood Transfusion Reactions: Motion Sickness Additional Past Anesthesia/Blood Transfusion Reaction / Comm: patient states " It takes a lot of anesthesia for my body to react". Pt has received blood in past without reaction. Past Psychological History: Anxiety, Bipolar, Depression, PTSD Additional Psychological History / Comment(s): . Smoking Status: Never smoker Past Alcohol Use History: None Reported Additional Past Alcohol Use History / Comment(s): . Past Drug Use History: None Reported - Past Family History Brother(s) Family Medical History: Diabetes Mellitus, Hyperlipidemia, Hypertension Additional Family Medical History / Comment(s): Patient states she has 1 brother with no major medical problems. Father Family Medical History: Diabetes Mellitus, Hyperlipidemia, Hypertension Additional Family Medical History / Comment(s): DAD IS 70 YEARS OLD. Patient states she does not have any contact with her father and does not know his medical history. Mother Family Medical History: CVA/TIA, Deep Vein Thrombosis (DVT) Additional Family Medical History / Comment(s): antiphospholipid antibody syndrome Medications and Allergies Home Medications Medication Instructions Recorded Confirmed Type Rivaroxaban [Xarelto] 20 mg PO DAILY 03/09/17 12/05/18 History tiZANidine [Zanaflex] 8 mg PO HS 03/09/17 12/05/18 History Metoclopramide [Reglan] 10 mg PO ACHS 07/29/17 12/05/18 History Trimethobenzamide HCl [Tigan] 300 mg PO TID PRN 09/25/17 12/05/18 History Metoprolol Succinate (ER) [Toprol 100 mg PO DAILY 10/24/17 12/05/18 History XL] Insulin Lispro [humaLOG Kwikpen] See Protocol SQ ACHS 05/23/18 12/05/18 History Ondansetron [Zofran ODT] 8 mg PO Q6H PRN 05/23/18 12/05/18 History Butalb/APAP/Caff 50-325-40Mg 1 tab PO Q8H PRN 06/11/18 12/05/18 History [Fioricet 50-325-40] Fenofibrate 160 mg PO DAILY 09/01/18 12/05/18 History Modafinil [Provigil] 200 mg PO DAILY 09/01/18 12/05/18 History Cholecalciferol [Vitamin D3] 2,000 unit PO DAILY tab 09/11/18 12/05/18 Rx Cyanocobalamin [Vitamin B-12] 2,000 mcg PO DAILY tab 09/11/18 12/05/18 Rx Levothyroxine Sodium [Synthroid] 25 mcg PO DAILY@0630 tab 09/11/18 12/05/18 Rx Levothyroxine Sodium [Synthroid] 200 mcg PO DAILY@0630 tab 09/11/18 12/05/18 Rx Venlafaxine HCl ER [Effexor XR] 150 mg PO DAILY 30 Days #30 09/11/18 12/05/18 Rx cap.er.24h diphenhydrAMINE [Benadryl] 150 mg PO HS cap 09/11/18 12/05/18 Rx Meloxicam [Mobic] 7.5 mg PO DAILY 09/15/18 12/05/18 History Topiramate [Topamax] 75 mg PO BID 10/17/18 12/05/18 History Gabapentin [Neurontin] 300 mg PO TID 11/15/18 12/05/18 History Lurasidone [Latuda] 40 mg PO DAILY 11/15/18 12/05/18 History Dexlansoprazole [Dexilant] 30 mg PO QAM 12/04/18 12/05/18 History Ferrous Sulfate [Feosol] 325 mg PO DAILY 12/04/18 12/05/18 History Fluticasone Nasal Juliette [Flonase 2 spr EA NOSTRIL DAILY 12/04/18 12/05/18 History Nasal Juliette] Insulin Aspart [NovoLOG 0 unit SQ ACHS 12/04/18 12/05/18 History (formulary)] Insulin Glargine [Lantus] 35 unit SQ HS 12/04/18 12/05/18 History Loratadine 10 mg PO QAM 12/04/18 12/05/18 History Losartan [Cozaar] 50 mg PO DAILY 12/04/18 12/05/18 History Magnesium Oxide [Mag-Ox] 250 mg PO DAILY 12/04/18 12/05/18 History Melatonin 5 mg PO HS 12/04/18 12/05/18 History Prochlorperazine Suppository 25 mg RECTAL Q8HR PRN 12/04/18 12/05/18 History [Compazine] tiZANidine [Zanaflex] 4 mg PO QAM 12/04/18 12/05/18 History hydrOXYzine PAMOATE [Vistaril] 1 tab PO Q12HR PRN 12/05/18 12/05/18 History Allergies Allergy/AdvReac Type Severity Reaction Status Date / Time barium sulfate Allergy Anaphylaxis Verified 12/05/18 12:57 diphtheria, pertussis, Allergy Unknown Verified 12/05/18 12:57 tetanus vacc doxepin [Doxepin] Allergy Anaphylaxis Verified 12/05/18 12:57 ephedrine Allergy Unknown Verified 12/05/18 12:57 ertapenem [From Invanz] Allergy Rash/Hives Verified 12/05/18 12:57 influenza virus vaccine, Allergy severe Verified 12/05/18 12:57 specific swelling [Influenza Virus and hives Vacc,Specific] promethazine HCl Allergy Anaphylaxis Verified 12/05/18 12:57 [From Phenergan] peanut oil AdvReac Severe Nausea & Verified 12/05/18 12:57 Vomiting,itching doxycycline AdvReac Nausea & Verified 12/05/18 12:57 Vomiting & Diarrhea peanut AdvReac Nausea & Verified 12/05/18 12:57 Vomiting Pertussis Vaccines AdvReac fever/seizu Verified 12/05/18 12:57 re pseudoephedrine AdvReac Chest Pain Verified 12/05/18 12:57 pseudoephedrine HCl AdvReac Chest Pain Verified 12/05/18 12:57 [From Sudafed] sulfamethoxazole AdvReac Nausea & Verified 12/05/18 12:57 [From Bactrim] Vomiting trimethoprim [From Bactrim] AdvReac Nausea & Verified 12/05/18 12:57 Vomiting Physical Exam Vitals: Vital Signs Pulse Resp BP Pulse Ox 12/05/18 13:06 94 18 126/83 94 L Intake and Output 12/05/18 12/05/18 12/05/18 06:59 14:59 22:59 Other: Weight 108.862 kg Physical Examinations : 1-Constitutiona : Cooperative , not in acute distress . 2-HEENT : nech ; supple , no Lymphadenopathy , normal thyroid size . eyes : no ptosis , no icterus, no photophobia . ENT : normal of hearing , normal oropharynx , no Thrush . 3- Respiratory : Chest clear to auscultations Bilaterally , no wheezing , no Rhonchi . 4- Cardiovascular : regular rate and rhythem , S1 , S2 , no S3 , no S4. 5- Gastrointestinal : abdomen soft no tenderness , bowel sounds , no organomegally . 6- Genitourinary : Defferred . 7- neurologic : Cranial nerve II to XII intact , no focal neurological deffecit . 8-psychatric : alert , oriented X 3 , appropriate affect , intact judgment and insight . 9-Lymphatic : no Lymphadenopathy . 10- musculoskeltal : Cervical Spine motor stregnth in the deltoid and biceps, normal right side , normal Left side motor stregnth biceps and the wrist extensors normal right side ,normal left side . motor stregnth in the triceps muscle . normal Right side , normal Left side deep tendon reflexes normal at the biceps , normal at Brachioradialis , normal at triceps. positive cervical facet loading test . Tenderness over the occipital nerve bilaterally Lumber spine moter stegnth lower extremities , thigh and legs 4/5 Right side , 4/5 Left side Results Comments: MRI of the brain negative for any abnormalities Assessment and Plan Plan: Assessment and plan= occipital neuralgia/cervicogenic headache/migraine headache Would consider increasing the Neurontin in the near future to 400 mg 3 times a day Recommendations continue Topamax 75 mg twice a day and continue her Zanaflex 4 mg every morning and 80 mg every afternoon Patient will be good candidate to have bilateral occipital nerve block, if she does not benefit from occipital nerve block then we will consider ordering MRI of the cervical spine, and possibly patient needs medial branch block cervical area, although this depending on her response to the occipital nerve block treatment plan discussed with the patient and she agreed with the preceding Time with Patient: Greater than 30 PQRS Measure Charge Sheet PQRS Narrative: Smoking Status Never smoker Do You Want the Pneumonia No Vaccine AT THIS TIME? Blood Pressure 126/83 Pain Intensity [Bilateral 5 Upper Back] Scale Used Numeric (1 - 10) Home Medications: Ambulatory Orders Rivaroxaban [Xarelto] 20 mg PO DAILY 03/09/17 tiZANidine [Zanaflex] 8 mg PO HS 03/09/17 Metoclopramide [Reglan] 10 mg PO [facility] 07/29/17 Trimethobenzamide HCl [Tigan] 300 mg PO TID PRN 09/25/17 Metoprolol Succinate (ER) [Toprol XL] 100 mg PO DAILY 10/24/17 Insulin Lispro [humaLOG Kwikpen] See Protocol SQ [facility] 05/23/18 Ondansetron [Zofran ODT] 8 mg PO Q6H PRN 05/23/18 Butalb/APAP/Caff 50-325-40Mg [Fioricet 50-325-40] 1 tab PO Q8H PRN 06/11/18 Fenofibrate 160 mg PO DAILY 09/01/18 Modafinil [Provigil] 200 mg PO DAILY 09/01/18 Cholecalciferol [Vitamin D3] 2,000 unit PO DAILY tab 09/11/18 Cyanocobalamin [Vitamin B-12] 2,000 mcg PO DAILY tab 09/11/18 Levothyroxine Sodium [Synthroid] 25 mcg PO DAILY@0630 tab 09/11/18 Levothyroxine Sodium [Synthroid] 200 mcg PO DAILY@0630 tab 09/11/18 Venlafaxine HCl ER [Effexor XR] 150 mg PO DAILY 30 Days #30 cap.er.24h 09/11/18 diphenhydrAMINE [Benadryl] 150 mg PO HS cap 09/11/18 Meloxicam [Mobic] 7.5 mg PO DAILY 09/15/18 Topiramate [Topamax] 75 mg PO BID 10/17/18 Gabapentin [Neurontin] 300 mg PO TID 11/15/18 Lurasidone [Latuda] 40 mg PO DAILY 11/15/18 Dexlansoprazole [Dexilant] 30 mg PO QAM 12/04/18 Ferrous Sulfate [Feosol] 325 mg PO DAILY 12/04/18 Fluticasone Nasal Juliette [Flonase Nasal Juliette] 2 spr EA NOSTRIL DAILY 12/04/18 Insulin Aspart [NovoLOG (formulary)] 0 unit SQ ACHS 12/04/18 Insulin Glargine [Lantus] 35 unit SQ HS 12/04/18 Loratadine 10 mg PO QAM 12/04/18 Losartan [Cozaar] 50 mg PO DAILY 12/04/18 Magnesium Oxide [Mag-Ox] 250 mg PO DAILY 12/04/18 Melatonin 5 mg PO HS 12/04/18 Prochlorperazine Suppository [Compazine] 25 mg RECTAL Q8HR PRN 12/04/18 tiZANidine [Zanaflex] 4 mg PO QAM 12/04/18 hydrOXYzine PAMOATE [Vistaril] 1 tab PO Q12HR PRN 12/05/18
== END | disposition home or self-care (01) ==
LOC: PNWHC3 12:30
PROVIDERS: ATTEND Specialist
DX: M54.81 Occipital neuralgia (principal); G43.909 Migraine, unspecified, not intractable, without status migrainosus; E11.9 Type 2 diabetes mellitus without complications; F41.9 Anxiety disorder, unspecified; F32.9 Major depressive disorder, single episode, unspecified; F43.10 Post-traumatic stress disorder, unspecified; Z79.01 Long term (current) use of anticoagulants; Z79.899 Other long term (current) drug therapy; Z79.4 Long term (current) use of insulin; Z79.1 Long term (current) use of non-steroidal anti-inflammatories (NSAID); Z88.8 Allergy status to other drugs, medicaments and biological substances; Z91.010 Allergy to peanuts; Z88.1 Allergy status to other antibiotic agents; Z88.7 Allergy status to serum and vaccine; Z88.2 Allergy status to sulfonamides
CPT/HCPCS: 99211

== ENCOUNTER → 2018-12-12 | Outpatient (CLI) | payer MEDICARE, OTHER ==
[2018-12-12 16:20] LABS: Basophils % (A) 0 %; Eosinophils # (A) 0.3 k/uL (0-0.7); Eosinophils % (A) 2 %; HCT 37.5 % (34.0-46.0); HGB 11.9 gm/dL (11.4-16.0); Lymphocytes # (A) 1.9 k/uL (1.0-4.8); Lymphocytes % (A) 18 %; MCH 29.1 pg (25.0-35.0); MCHC 31.6 g/dL (31.0-37.0); MCV 92.1 fL (80.0-100.0); Mean Platelet Volume 7.3; Monocytes # (A) 0.4 k/uL (0-1.0); Monocytes % (A) 4 %; Neutrophils # (A) 7.7 k/uL (1.3-7.7); Neutrophils % (A) 73 %; Platelet Count 365 k/uL (150-450); RBC 4.07 m/uL (3.80-5.40); RDW 13.6 % (11.5-15.5); WBC 10.6 k/uL (3.8-10.6)
[2018-12-13 01:48] LABS: Hemoglobin A1C 7.3 % (4.0-6.0)
[2018-12-13 02:21] LABS: Albumin 4.5 g/dL (3.80-4.90); Albumin/Globulin Ratio 2.37 (1.20-2.10); Anion Gap 13.8 mmol/L (4.00-12.00); Calcium 8.9 mg/dL (8.7-10.3); Carbon Dioxide 19.2 mmol/L (21.6-31.8); Globulin 1.9 g/dL (1.6-3.3); Potassium 4.1 mmol/L (3.5-5.5); Total Bilirubin 0.1 mg/dL (0.2-1.2); Total Protein 6.4 g/dL (6.2-8.2)
== END | disposition home or self-care (01) ==
LOC: LABWHC1 14:25
PROVIDERS: ATTEND Nurse Practitioner Adult Health
DX: E03.9 Hypothyroidism, unspecified (principal); E11.69 Type 2 diabetes mellitus with other specified complication; E87.2 Acidosis; K21.9 Gastro-esophageal reflux disease without esophagitis
CPT/HCPCS: 36415; 80053; 83036; 84439; 84443; 85025

== ENCOUNTER 2019-01-17 08:35 | Day surgery (SDC) | payer MEDICARE, OTHER ==
[2019-01-16 11:04] VITALS: BMI 40.7
[~2019-01-17 08:35] MED LIST changes: -DEXAMETHASONE SOD PHOSPHATE 10 MG/ML 1 ML VIAL IV ONE; -HYDROmorphone 0.5 MG/0.5 ML SYRINGE IVP PRN; -LACTATED RINGERS 1,000 ML IV SCH; -MORPHINE SULFATE 2 MG/ML SYRINGE IV PRN; -ONDANSETRON 4 MG/2 ML VIAL IVP ONE; -ONDANSETRON 4 MG/2 ML VIAL IVP PRN; -PROMETHAZINE INJ 6.25 MG in SODIUM CHLORIDE 0.9% 50 ML IVPB PRN; -Pre Op ABX Message 1 EACH MISC MISCELLANE ONE; +SODIUM CHLORIDE 0.9% 500 ML 500 ML IV SCH; -VANCOMYCIN 1,500 MG in SODIUM CHLORIDE 0.9% 250 ML IVPB ONE
[2019-01-17 10:05] LABS: Glucose,Whole Blood 224 mg/dL (75-99)
[2019-01-17 10:08] VITALS: RESP 18; TEMP 98
[2019-01-17] MEDS ORDERED: LIDOCAINE 1% 20 ML VIAL (10MG/ML) FOR IV START INTRADERMA ONE (10:37)
[2019-01-17] MEDS ORDERED: LACTATED RINGERS 1,000 ML IV ONE (10:37)
--- NOTE | 2019-01-17 11:01 | P.PCN ---
Date of Procedure: 01/17/19 Procedure(s) Performed: Preoperative diagnoses= 1- Bilateral Greater occipital neuralgia. 2- cervicogenic headache Postoperative diagnoses= same as preoperative diagnosis. Procedure= Bilateral Greater occipital nerve block Anesthesia= moderate sedation with Versed 2 mg and fentanyl 100 micrograms . Estimated blood loss=minimal. Procedure indication= the patient had a history of severe chronic neck pain , and headache, diagnosed with occipital neuralgia exam was positive for severe tenderness over the occipital nerve bilaterally, she will be a good candidate occipital nerve block, patient failed conservative management Procedure description= the patient was seen and identified in the preoperative holding area, risks and benefits and alternative of the procedure and possible complications discussed with the patient, and he agreed with the preceding, patient signed the consent, an IV was started, and vital signs were monitored and were stable throughout the procedure, patient was placed in the sitting position or table and the neck area was prepped and draped with a sterile fashion, vital signs were closely monitored during the procedure, 25-gauge needle advanced 1 inch lateral to the occipital protuberance on the right side , at the location of the right occipital nerve , then after negative aspiration for heme and CSF and there was no paresthesia during the injection, 6 ml of Robivacaine 0.5% and 20 mg of Depo-Medrol injected after negative aspiration, the needle removed, and the entire same procedure was repeated for the left Greater occipital nerve. Patient tolerated the procedure well without any complication, The patient returned to supine position after the back was cleaned and a Band- Aid applied, the patient transported to recovery room in stable condition and he was monitored for 30 minutes before he was discharged home and then patient was reexamined before going home and patient was discharged in stable condition and patient will follow up with the pain clinic in a few weeks.
[2019-01-17] MEDS ORDERED: IV FLUID CONTINUATION 1,000 ML IV ONE (11:04)
[2019-01-17 11:26] VITALS: BP 119/79; PULSE 84
[2019-01-17 11:42] LABS: Glucose,Whole Blood 197 mg/dL (75-99)
== END 2019-01-17 11:45 | disposition home or self-care (01) ==
LOC: ORPAIN 08:35
PROVIDERS: ATTEND Specialist
DX: G89.29 Other chronic pain (principal); M54.81 Occipital neuralgia; Z79.01 Long term (current) use of anticoagulants
CPT/HCPCS: 81025; 64405; J2250; J1030; J3010

== ENCOUNTER 2019-01-22 15:15 | Inpatient (IN) | payer MEDICARE, OTHER ==
--- NOTE | 2019-01-22 15:52 | ED ---
General Adult HPI - General Chief complaint: Abdominal Pain Stated complaint: Fever, back pain Time Seen by Provider: 01/22/19 15:34 Source: patient, RN notes reviewed, old records reviewed Mode of arrival: ambulatory - History of Present Illness Initial comments: 38-year-old female patient with extensive past medical history including type 2 diabetes, recurrent urinary tract infections and sepsis presents to ED with 2 days of nausea without emesis, fevers at home, waxing and waning epigastric pain. Patient does currently have a MediPort which she reportedly uses to receive IV fluids every 2 weeks and for use of IV antibiotics due to patient's poor vasculature. Patient is not currently on any antibiotics. Patient denies any dysuria. Patient denies any cough congestion chest pain shortness of breath. Systemic: Pt denies fatigue, myalgia, fever/chills, rash. Pt denies weakness, night sweats, weight loss. Neuro: Pt denies headache, visual disturbances, syncope or pre-syncope. HEENT: Pt denies ocular discharge or irritation, otalgia, rhinorrhea, pharyngitis or notable lymphadenopathy. Cardiopulmonary: Pt denies chest pain, SOB, heart palpitations, dyspnea on exertion. Abdominal/GI: Pt denies abdominal pain, n/v/d. : Pt denies dysuria, burning w/ urination, frequency/urgency. Denies new onset urinary or bowel incontinence. MSK: Pt denies myalgia, loss of strength or function in extremities. Neuro: Pt denies new onset weakness, paresthesias. - Related Data Home Medications Medication Instructions Recorded Confirmed Rivaroxaban [Xarelto] 20 mg PO DAILY 03/09/17 01/22/19 tiZANidine [Zanaflex] 8 mg PO HS 03/09/17 01/22/19 Metoclopramide [Reglan] 10 mg PO QID 07/29/17 01/22/19 Metoprolol Succinate (ER) [Toprol 100 mg PO DAILY 10/24/17 01/22/19 XL] Ondansetron [Zofran ODT] 8 mg PO Q6H PRN 05/23/18 01/22/19 Butalb/APAP/Caff 50-325-40Mg 1 tab PO Q8H PRN 06/11/18 01/22/19 [Fioricet 50-325-40] Fenofibrate 160 mg PO DAILY 10/12/18 03/04/19 Modafinil [Provigil] 200 mg PO DAILY 09/01/18 01/22/19 Meloxicam [Mobic] 15 mg PO DAILY 09/15/18 01/22/19 Topiramate [Topamax] 75 mg PO BID 10/17/18 01/22/19 Gabapentin [Neurontin] 400 mg PO TID 11/15/18 01/22/19 Lurasidone [Latuda] 60 mg PO DAILY 11/15/18 01/22/19 Dexlansoprazole [Dexilant] 30 mg PO QAM 12/04/18 01/22/19 Ferrous Sulfate [Feosol] 325 mg PO DAILY 12/04/18 01/22/19 Fluticasone Nasal [place] [Flonase 2 spr EA NOSTRIL DAILY 12/04/18 01/22/19 Nasal [place]] INSULIN ASPART (NovoLOG) [NovoLOG See Protocol SQ ACHS 12/04/18 01/22/19 (formulary)] Insulin Glargine [Lantus] 35 unit SQ HS 12/04/18 01/22/19 Loratadine 10 mg PO QAM 12/04/18 01/22/19 Losartan [Cozaar] 50 mg PO DAILY 12/04/18 01/22/19 Magnesium Oxide [Mag-Ox] 250 mg PO DAILY 12/04/18 01/22/19 Prochlorperazine Suppository 25 mg RECTAL Q8HR PRN 12/04/18 01/22/19 [Compazine] tiZANidine [Zanaflex] 4 mg PO BID 12/04/18 01/22/19 hydrOXYzine PAMOATE [Vistaril] 50 mg PO Q12HR PRN 12/05/18 01/22/19 Melatonin 10 mg PO HS 12/19/18 01/22/19 Levothyroxine Sodium [Synthroid] 100 mcg PO DAILY 01/16/19 01/22/19 Promethazine [Phenergan] 25 mg PO Q6HR PRN 01/16/19 01/22/19 Venlafaxine HCl ER [Effexor XR] 225 mg PO DAILY 01/16/19 01/22/19 Cyanocobalamin (Vitamin B-12) 2,000 mcg PO DAILY 01/22/19 01/22/19 [Vitamin B-12] Levothyroxine Sodium [Synthroid] 125 mcg PO DAILY 01/22/19 01/22/19 Previous Rx's Medication Instructions Recorded Cholecalciferol [Vitamin D3] 2,000 unit PO DAILY tab 09/11/18 diphenhydrAMINE [Benadryl] 150 mg PO HS cap 09/11/18 Allergies Allergy/AdvReac Type Severity Reaction Status Date / Time barium sulfate Allergy Anaphylaxis Verified 01/22/19 16:09 diphtheria, pertussis, Allergy Unknown Verified 01/22/19 16:09 tetanus vacc doxepin [Doxepin] Allergy Anaphylaxis Verified 01/22/19 16:09 ephedrine Allergy Unknown Verified 01/22/19 16:09 ertapenem [From Invanz] Allergy Rash/Hives Verified 01/22/19 16:09 influenza virus vaccine, Allergy severe Verified 01/22/19 16:09 specific swelling [Influenza Virus and hives Vacc,Specific] peanut oil AdvReac Severe Nausea & Verified 01/22/19 16:09 Vomiting,itching doxycycline AdvReac Nausea & Verified 01/22/19 16:09 Vomiting & Diarrhea peanut AdvReac Nausea & Verified 01/22/19 16:09 Vomiting Pertussis Vaccines AdvReac fever/seizu Verified 01/22/19 16:09 re pseudoephedrine AdvReac Chest Pain Verified 01/22/19 16:09 pseudoephedrine HCl AdvReac Chest Pain Verified 01/22/19 16:09 [From Sudafed] sulfamethoxazole AdvReac Nausea & Verified 01/22/19 16:09 [From Bactrim] Vomiting trimethoprim [From Bactrim] AdvReac Nausea & Verified 01/22/19 16:09 Vomiting Review of Systems ROS Statement: Those systems with pertinent positive or pertinent negative responses have been documented in the HPI. ROS Other: All systems not noted in ROS Statement are negative. Past Medical History Past Medical History: Chest Pain / Angina, CVA/TIA, Diabetes Mellitus, Deep Vein Thrombosis (DVT), Neurologic Disorder, Syncope, Thyroid Disorder Additional Past Medical History / Comment(s): "STROKE LIKE EPISODE D/T MITOCHRONDIAL DISEASE HAD WORK UP DONE AT [facility]. WEARS A BRACE ON LT ANKLE AND LT WRIST".Dysautonomia-progressive neurological disorder, lupus/LUPUS ANTICOAGULANTS, 2004 CVA without residual, ana maria's disease, lymphedema Lt arm d/t DVTs , v-tach, pituitary microadenoma. "mitochondrial disease". patent foramen ovale, narcolepsy, gastropareis, IDDM type II, uti's, falls, orthostatic hypotension/syncope,migraines with hemiplegia, pernicious anemia, polycystic ovarian syndrome, neuropathy bilateral legs/fee-mild, uterine ablation August 2015/patient no longer has periods-had uterine ablation uti's. , midline access for fluids-current access issues has contacted dr quigley. History of Any Multi-Drug Resistant Organisms: ESBL, MRSA Date of last positivie culture/infection: 03/09/17 MRSA/ 05/17/18 ESBL MDRO Source:: MRSA LEFT ARM,/ESBL URINE ECOLI Past Surgical History: Ablation, Uterine Ablation Additional Past Surgical History / Comment(s): colonscopy/egd, angie, stress test. PORT-A -CATH INSERTION 04-28-18 Past Anesthesia/Blood Transfusion Reactions: No Reported Reaction Additional Past Anesthesia/Blood Transfusion Reaction / Comment(s): patient states "It takes a lot of anesthesia for my body to react". Pt has received blood in past without reaction. Past Psychological History: Bipolar, Depression Smoking Status: Never smoker Past Alcohol Use History: None Reported Past Drug Use History: None Reported - Past Family History Brother(s) Family Medical History: Diabetes Mellitus, Hyperlipidemia, Hypertension Additional Family Medical History / Comment(s): Patient states she has 1 brother with no major medical problems. Father Family Medical History: Diabetes Mellitus, Hyperlipidemia, Hypertension Additional Family Medical History / Comment(s): DAD IS 70 YEARS OLD. Patient states she does not have any contact with her father and does not know his medical history. Mother Family Medical History: CVA/TIA, Deep Vein Thrombosis (DVT) Additional Family Medical History / Comment(s): antiphospholipid antibody syndrome General Exam - General Exam Comments Initial Comments: Constitutional: NAD, AOX3, Pt has pleasant affect. HEENT: NC/AT, trachea midline, neck supple, no lymphadenopathy. Posterior pharynx non erythematous, without exudates. External ears appear normal, without discharge. Mucous membranes moist. Eyes PERRLA, EOM intact. There is no scleral icterus. No pallor noted. Cardiopulmonary: RRR, no murmurs, rubs or gallops, no JVD noted. Lungs CTAB in anterior and posterior kebede. No peripheral edema. Abdominal exam: Abdomen soft and non-distended. Abdomen mildly tender to palpation in epigastric region. Bowel sounds active in LLQ. No hepatosplenomegaly. No ecchymosis Neuro: CN II-XII grossly intact. No nuchal rigidity. MSK: No posterior calf tenderness bilaterally, homans sign negative bilaterally. Posterior tibialis and radial pulse +2 bilaterally. Sensation intact in upper and lower extremities. Full active ROM in upper and lower extremities, 5/5 stregnth. Course Vital Signs 01/22/19 01/22/19 01/22/19 15:23 18:56 20:55 Temperature 99.3 F 100.1 F H 99.8 F H Pulse Rate 129 H 120 H 109 H Respiratory 18 16 20 Rate Blood Pressure 128/86 128/85 128/87 O2 Sat by Pulse 96 94 L 99 Oximetry Medical Decision Making - Medical Decision Making 38-year-old female patient with extensive past medical history including type 2 diabetes, recurrent urinary tract infections and sepsis presents to ED with 2 days of nausea without emesis, fevers at home, waxing and waning epigastric pain. Patient does currently have a MediPort which she reportedly uses to receive IV fluids every 2 weeks and for use of IV antibiotics due to patient's poor vasculature. Patient is not currently on any antibiotics. Patient denies any dysuria. Patient denies any cough congestion chest pain shortness of breath. Patient vital signs displayed mild tachycardia. Physical exam displayed: Abdomen mildly tender to palpation in epigastric region. No other acute pathology. Laboratory investigations reveal mild leukocytosis of 15.7. CMP noncompressive. Lactic acid within normal limits. UA displayed UTI. Influenza negative. KUB and CT abdomen and pelvis with contrast did not display acute pathology. Patient continues to have malaise, mild tachycardia. Patient will be admitted for IV antibiotics and further evaluation. Case discussed with Dr. Jackman. - Lab Data Result diagrams: 01/22/19 16:28 01/22/19 16:28 Lab Results 01/22/19 01/22/19 01/22/19 Range/Units 16:28 16:28 16:28 WBC 15.7 H (3.8-10.6) k/uL RBC 4.50 (3.80-5.40) m/uL Hgb 12.8 (11.4-16.0) gm/dL Hct 39.9 (34.0-46.0) % MCV 88.5 (80.0-100.0) fL MCH 28.5 (25.0-35.0) pg MCHC 32.2 (31.0-37.0) g/dL RDW 13.6 (11.5-15.5) % Plt Count 441 (150-450) k/uL Neutrophils % 80 % Lymphocytes % 12 % Monocytes % 5 % Eosinophils % 1 % Basophils % 0 % Neutrophils # 12.5 H (1.3-7.7) k/uL Lymphocytes # 1.9 (1.0-4.8) k/uL Monocytes # 0.8 (0-1.0) k/uL Eosinophils # 0.2 (0-0.7) k/uL Basophils # 0.1 (0-0.2) k/uL Sodium 140 (137-145) mmol/L Potassium 4.2 (3.5-5.1) mmol/L Chloride 107 (98-107) mmol/L Carbon Dioxide 18 L (22-30) mmol/L Anion Gap 15 mmol/L BUN 16 (7-17) mg/dL Creatinine 0.73 (0.52-1.04) mg/dL Est GFR (CKD-EPI)AfAm >90 (>60 ml/min/1.73 sqM) Est GFR (CKD-EPI)NonAf >90 (>60 ml/min/1.73 sqM) Glucose 126 H (74-99) mg/dL Plasma Lactic Acid Joce 2.0 (0.7-2.0) mmol/L Calcium 10.2 (8.4-10.2) mg/dL Total Bilirubin 0.4 (0.2-1.3) mg/dL AST 17 (14-36) U/L ALT 28 (9-52) U/L Alkaline Phosphatase 101 (38-126) U/L Total Protein 8.0 (6.3-8.2) g/dL Albumin 4.8 (3.5-5.0) g/dL Lipase 60 (23-300) U/L Urine Color Urine Appearance (Clear) Urine pH (5.0-8.0) Ur Specific [place] (1.001-1.035) Urine Protein (Negative) Urine Glucose (UA) (Negative) Urine Ketones (Negative) Urine Blood (Negative) Urine Nitrite (Negative) Urine Bilirubin (Negative) Urine Urobilinogen (<2.0) mg/dL Ur Leukocyte Esterase (Negative) Urine WBC (0-5) /hpf Ur Squamous Epith Cells (0-4) /hpf Urine Mucus (None) /hpf Influenza Type A RNA (Not Detectd) Influenza Type B (PCR) (Not Detectd) 01/22/19 01/22/19 Range/Units 16:58 17:15 WBC (3.8-10.6) k/uL RBC (3.80-5.40) m/uL Hgb (11.4-16.0) gm/dL Hct (34.0-46.0) % MCV (80.0-100.0) fL MCH (25.0-35.0) pg MCHC (31.0-37.0) g/dL RDW (11.5-15.5) % Plt Count (150-450) k/uL Neutrophils % % Lymphocytes % % Monocytes % % Eosinophils % % Basophils % % Neutrophils # (1.3-7.7) k/uL Lymphocytes # (1.0-4.8) k/uL Monocytes # (0-1.0) k/uL Eosinophils # (0-0.7) k/uL Basophils # (0-0.2) k/uL Sodium (137-145) mmol/L Potassium (3.5-5.1) mmol/L Chloride (98-107) mmol/L Carbon Dioxide (22-30) mmol/L Anion Gap mmol/L BUN (7-17) mg/dL Creatinine (0.52-1.04) mg/dL Est GFR (CKD-EPI)AfAm (>60 ml/min/1.73 sqM) Est GFR (CKD-EPI)NonAf (>60 ml/min/1.73 sqM) Glucose (74-99) mg/dL Plasma Lactic Acid Joce (0.7-2.0) mmol/L Calcium (8.4-10.2) mg/dL Total Bilirubin (0.2-1.3) mg/dL AST (14-36) U/L ALT (9-52) U/L Alkaline Phosphatase (38-126) U/L Total Protein (6.3-8.2) g/dL Albumin (3.5-5.0) g/dL Lipase (23-300) U/L Urine Color Yellow Urine Appearance Cloudy H (Clear) Urine pH 7.0 (5.0-8.0) Ur Specific [place] 1.022 (1.001-1.035) Urine Protein Trace H (Negative) Urine Glucose (UA) Negative (Negative) Urine Ketones Negative (Negative) Urine Blood Negative (Negative) Urine Nitrite Negative (Negative) Urine Bilirubin Negative (Negative) Urine Urobilinogen <2.0 (<2.0) mg/dL Ur Leukocyte Esterase Small H (Negative) Urine WBC 29 H (0-5) /hpf Ur Squamous Epith Cells 5 H (0-4) /hpf Urine Mucus Rare H (None) /hpf Influenza Type A RNA Not Detected (Not Detectd) Influenza Type B (PCR) Not Detected (Not Detectd) - EKG Data -: EKG Interpreted by Me EKG Comments: ventricular rate 108, ND interval 146, QRS 88, QT/QTC 358/479. Sinus tachycardia. Disposition Clinical Impression: UTI (urinary tract infection), High risk for readmission, Leukocytosis Disposition: ADMITTED IP TO THIS HOSP Condition: Fair Is patient prescribed a controlled substance at d/c from ED?: No Referrals: Fran Thompson MD [Primary Care Provider] - 1-2 days
[2019-01-22] MEDS ORDERED: SODIUM CHLORIDE 0.9% 1,000 ML IV STA ×2 (15:54→19:01)
[2019-01-22 16:56] LABS: Basophils # (A) 0.1 k/uL (0-0.2); Basophils % (A) 0 %; Eosinophils # (A) 0.2 k/uL (0-0.7); Eosinophils % (A) 1 %; HCT 39.9 % (34.0-46.0); HGB 12.8 gm/dL (11.4-16.0); Lymphocytes # (A) 1.9 k/uL (1.0-4.8); Lymphocytes % (A) 12 %; MCH 28.5 pg (25.0-35.0); MCHC 32.2 g/dL (31.0-37.0); MCV 88.5 fL (80.0-100.0); Mean Platelet Volume 6.2; Monocytes # (A) 0.8 k/uL (0-1.0); Monocytes % (A) 5 %; Neutrophils # (A) 12.5 k/uL (1.3-7.7); Neutrophils % (A) 80 %; Platelet Count 441 k/uL (150-450); RDW 13.6 % (11.5-15.5); WBC 15.7 k/uL (3.8-10.6)
[2019-01-22 17:07] LABS: ALT 28 U/L (9-52); AST 17 U/L (14-36); Albumin 4.8 g/dL (3.5-5.0); Alkaline Phosphatase 101 U/L (38-126); Anion Gap 15 mmol/L; Blood Urea Nitrogen 16 mg/dL (7-17); Calcium 10.2 mg/dL (8.4-10.2); Carbon Dioxide 18 mmol/L (22-30); Chloride 107 mmol/L (98-107); Glucose 126 mg/dL (74-99); Lipase 60 U/L (23-300); Potassium 4.2 mmol/L (3.5-5.1); Sodium 140 mmol/L (137-145); Total Bilirubin 0.4 mg/dL (0.2-1.3)
[2019-01-22 17:11] LABS: Appearance,Urine Cloudy (Clear); Bilirubin,Urine Negative (Negative); Blood,Urine Negative (Negative); Color,Urine Yellow; Glucose,Urine (UA) Negative (Negative); Ketones,Urine Negative (Negative); Leukocyte Esterase,Urine Small (Negative); Mucus,Urine Rare /hpf; Nitrite,Urine Negative (Negative); Protein,Urine Trace (Negative); Specific Gravity,Urine 1.022 (1.001-1.035); Squamous Epithelial Cell,Urine 5 /hpf (0-4); Urobilinogen,Urine <2.0 mg/dL (<2.0); WBC,Urine 29 /hpf (0-5)
--- NOTE | 2019-01-22 17:26 | XR ---
EXAMINATION TYPE: XR KUB DATE OF EXAM: 01/22/2019 5:19 PM CLINICAL HISTORY: Abdominal pain with nausea and fever. TECHNIQUE: Two Upright KUB images of the abdomen are obtained. COMPARISON: CT abdomen pelvis August 19, 2018 FINDINGS: Scattered gas is seen in non-distended stomach and small bowel loops. Gas and fecal materia l is seen in non-distended colon. There is no visceromegaly, pneumoperitoneum, or abnormal calcificat ion appreciated. The lung bases are clear and the osseous structures are intact. IMPRESSION: Overall nonobstructive bowel gas pattern.
[2019-01-22] MEDS ORDERED: CEPHALEXIN 500 MG CAP PO STA (18:57)
[2019-01-22] MEDS ORDERED: IBUPROFEN 600 MG TAB PO STA (19:02)
--- NOTE | 2019-01-22 19:39 | CT ---
EXAMINATION TYPE: CT abdomen pelvis w con DATE OF EXAM: 01/22/2019 HISTORY: Mid abdominal pain. CT DLP: 1416.3mGycm Automated Exposure Control for Dose Reduction was Utilized. CONTRAST: CT scan of the abdomen and pelvis is performed without oral but with IV Contrast, patient injected wi th 100 mL of Isovue M300. COMPARISON: CT abdomen and pelvis August 19, 2018 FINDINGS: LUNG BASES: No significant abnormality is appreciated. LIVER/GB: Liver remains diffusely low dense consistent with diffuse fatty infiltration. PANCREAS: No significant abnormality is seen. SPLEEN: Stable vague subcentimeter low dense lesion spleen axial image 27 presumed benign. ADRENALS: No significant abnormality is seen. KIDNEYS: Bladder is poorly distended and thus suboptimally evaluated. Stable roughly 1 cm exophytic l ow dense lesion anteriorly lower pole level left kidney image 47 series 301 felt to reflect simple cy st. Additional simple cyst just superior to this measuring roughly 1 cm axial image 47 is noted. BOWEL: Evaluation bowel is slightly suboptimal secondary to lack of enteric contrast. There is no reshma picious small or large bowel dilatation identified. UTERUS/ADNEXA: Anteverted uterus is redemonstrated. LYMPH NODES: No greater than 1cm abdominal or pelvic lymph nodes are appreciated. OSSEOUS STRUCTURES: Mild multilevel facet arthropathy lower lumbar spine. OTHER: No significant additional abnormality is seen. IMPRESSION: No new or acute finding is seen to account for patient's clinical symptoms. No significan t change from prior.
[2019-01-22] MEDS ORDERED: NALOXONE 0.4 MG/ML 1 ML VIAL IV PRN (21:22)
[2019-01-22] MEDS ORDERED: ACETAMINOPHEN TAB 325 MG TAB PO PRN (21:22)
[2019-01-22] MEDS: SODIUM CHLORIDE 0.9% 1,000 ML IV SCH (22:50)
[2019-01-22 23:06] LABS: Glucose,Whole Blood 113 mg/dL (75-99)
[2019-01-23] MEDS ORDERED: MAG HYDROX/AL HYDROX/SIMETH 30 ML CUP PO PRN (00:07)
[2019-01-23] MEDS ORDERED: hydrOXYzine PAMOATE 25 MG CAP PO PRN (00:30)
[2019-01-23] MEDS ORDERED: PROMETHAZINE 25 MG TAB PO PRN (00:30)
[2019-01-23] MEDS ORDERED: BUTALB/APAP/CAFF 50-325-40MG TAB PO PRN (00:30)
[2019-01-23] MEDS: INSULIN DETEMIR (LEVEMIR) 100 UNIT/ML SYR SQ SCH ×2 (00:31→21:01)
[2019-01-23] MEDS: MELATONIN 5 MG TABLET PO SCH ×2 (00:40→21:01)
[2019-01-23] MEDS: TOPIRAMATE 25 MG TAB PO SCH ×3 (00:40→21:01)
[2019-01-23] MEDS: diphenhydrAMINE 50 MG CAP PO SCH ×2 (00:40→21:01)
[2019-01-23] MEDS: ONDANSETRON ODT 8 MG TAB.RAPDIS PO PRN ×2 (00:41→15:45)
[2019-01-23] MEDS: GABAPENTIN 400 MG CAP PO SCH ×4 (00:41→21:01)
[2019-01-23] MEDS: METOCLOPRAMIDE 10 MG TAB PO SCH ×5 (00:41→21:01)
[2019-01-23] MEDS: IBUPROFEN 400 MG TAB PO PRN (00:41)
[2019-01-23] MEDS: tiZANidine 4 MG TAB PO SCH ×4 (00:41→21:01)
[2019-01-23] MEDS: LEVOTHYROXINE 125 MCG TAB PO SCH (05:46)
[2019-01-23] MEDS: LEVOTHYROXINE 100 MCG TAB PO SCH (05:46)
--- NOTE | 2019-01-23 07:02 | P.HPIM ---
History of Present Illness H&P Date: 01/23/19 Chief Complaint: Fevers at home 38-year-old female with complex past medical history including mitochondrial disease and diabetes. Patient presented to the hospital due to 2 day history of nausea vomiting and fevers. She reported that she had a temp of 101 at home for which she was concerned she has recently had occipital nerve block done last week and she also has a MediPort she was told by her doctor if she spikes any fever to go to the hospital. She denies any upper respiratory infection like symptoms. However she noticed that she's having frequent urination and increased cloudiness in her urination otherwise denies any hematuria or dysuria at this time. She is also reporting some suprapubic discomfort and right flank pain this dull achy in nature 7 out of 10 in severity and nonradiating. This is associated with nausea or vomiting and epigastric discomfort no blood in her vomiting. Patient can walk around short distances at home but if she leaves home she uses a wheelchair. Patient has a Mediport due to difficulty accessing her peripheral veins and she gets IV fluids once every 2 weeks in the outpatient setting and she gets frequent antibiotics IV due to recurrent UTI. In the ED flu test was negative CT of the abdomen and pelvis showed no acute process urine sample was questionable suggesting possible UTI, patient was started on Rocephin blood cultures drawn urine cultures drawn Otherwise patient denies any headache changes in her vision or hearing denies any chest pain or trouble breathing denies any GI bleeding Review of Systems Pertinent positives as noted in HPI. All other systems were reviewed and are negative Past Medical History Past Medical History: Chest Pain / Angina, CVA/TIA, Diabetes Mellitus, Deep Vein Thrombosis (DVT), Neurologic Disorder, Syncope, Thyroid Disorder Additional Past Medical History / Comment(s): "STROKE LIKE EPISODE D/T MITOCHRONDIAL DISEASE HAD WORK UP DONE AT [facility]. WEARS A BRACE ON LT ANKLE AND LT WRIST".Dysautonomia-progressive neurological disorder, lupus/LUPUS ANTICOAGULANTS, 2004 CVA without residual, ana maria's disease, lymphedema Lt arm d/t DVTs , v-tach, pituitary microadenoma. "mitochondrial disease". patent foramen ovale, narcolepsy, gastropareis, IDDM type II, uti's, falls, orthostatic hypotension/syncope,migraines with hemiplegia, pernicious anemia, polycystic ovarian syndrome, neuropathy bilateral legs/fee-mild, uterine ablation August 2015/patient no longer has periods-had uterine ablation uti's. , midline access for fluids-current access issues has contacted dr quigley. History of Any Multi-Drug Resistant Organisms: ESBL, MRSA Date of last positivie culture/infection: 03/09/17 MRSA/ 05/17/18 ESBL MDRO Source:: MRSA LEFT ARM,/ESBL URINE ECOLI Past Surgical History: Ablation, Uterine Ablation Additional Past Surgical History / Comment(s): colonscopy/egd, angie, stress test. PORT-A -CATH INSERTION 04-28-18 Past Anesthesia/Blood Transfusion Reactions: No Reported Reaction Additional Past Anesthesia/Blood Transfusion Reaction / Comment(s): patient states "It takes a lot of anesthesia for my body to react". Pt has received blood in past without reaction. Past Psychological History: Bipolar, Depression Smoking Status: Never smoker Past Alcohol Use History: None Reported Past Drug Use History: None Reported - Past Family History Brother(s) Family Medical History: Diabetes Mellitus, Hyperlipidemia, Hypertension Additional Family Medical History / Comment(s): Patient states she has 1 brother with no major medical problems. Father Family Medical History: Diabetes Mellitus, Hyperlipidemia, Hypertension Additional Family Medical History / Comment(s): DAD IS 70 YEARS OLD. Patient states she does not have any contact with her father and does not know his medical history. Mother Family Medical History: CVA/TIA, Deep Vein Thrombosis (DVT) Additional Family Medical History / Comment(s): antiphospholipid antibody syndrome Medications and Allergies Home Medications Medication Instructions Recorded Confirmed Type Rivaroxaban [Xarelto] 20 mg PO DAILY 03/09/17 01/22/19 History tiZANidine [Zanaflex] 8 mg PO HS 03/09/17 01/22/19 History Metoclopramide [Reglan] 10 mg PO QID 07/29/17 01/22/19 History Metoprolol Succinate (ER) [Toprol 100 mg PO DAILY 10/24/17 01/22/19 History XL] Ondansetron [Zofran ODT] 8 mg PO Q6H PRN 05/23/18 01/22/19 History Butalb/APAP/Caff 50-325-40Mg 1 tab PO Q8H PRN 06/11/18 01/22/19 History [Fioricet 50-325-40] Fenofibrate 160 mg PO DAILY 09/01/18 01/22/19 History Modafinil [Provigil] 200 mg PO DAILY 09/01/18 01/22/19 History Cholecalciferol [Vitamin D3] 2,000 unit PO DAILY tab 09/11/18 01/22/19 Rx diphenhydrAMINE [Benadryl] 150 mg PO HS cap 09/11/18 01/22/19 Rx Meloxicam [Mobic] 15 mg PO DAILY 09/15/18 01/22/19 History Topiramate [Topamax] 75 mg PO BID 10/17/18 01/22/19 History Gabapentin [Neurontin] 400 mg PO TID 11/15/18 01/22/19 History Lurasidone [Latuda] 60 mg PO DAILY 11/15/18 01/22/19 History Dexlansoprazole [Dexilant] 30 mg PO QAM 12/04/18 01/22/19 History Ferrous Sulfate [Feosol] 325 mg PO DAILY 12/04/18 01/22/19 History Fluticasone Nasal [place] [Flonase 2 spr EA NOSTRIL DAILY 12/04/18 01/22/19 History Nasal [place]] INSULIN ASPART (NovoLOG) [NovoLOG See Protocol SQ ACHS 12/04/18 01/22/19 History (formulary)] Insulin Glargine [Lantus] 35 unit SQ HS 12/04/18 01/22/19 History Loratadine 10 mg PO QAM 12/04/18 01/22/19 History Losartan [Cozaar] 50 mg PO DAILY 12/04/18 01/22/19 History Magnesium Oxide [Mag-Ox] 250 mg PO DAILY 12/04/18 01/22/19 History Prochlorperazine Suppository 25 mg RECTAL Q8HR PRN 12/04/18 01/22/19 History [Compazine] tiZANidine [Zanaflex] 4 mg PO BID 12/04/18 01/22/19 History hydrOXYzine PAMOATE [Vistaril] 50 mg PO Q12HR PRN 12/05/18 01/22/19 History Melatonin 10 mg PO HS 12/19/18 01/22/19 History Levothyroxine Sodium [Synthroid] 100 mcg PO DAILY 01/16/19 01/22/19 History Promethazine [Phenergan] 25 mg PO Q6HR PRN 01/16/19 01/22/19 History Venlafaxine HCl ER [Effexor XR] 225 mg PO DAILY 01/16/19 01/22/19 History Cyanocobalamin (Vitamin B-12) 2,000 mcg PO DAILY 01/22/19 01/22/19 History [Vitamin B-12] Levothyroxine Sodium [Synthroid] 125 mcg PO DAILY 01/22/19 01/22/19 History Allergies Allergy/AdvReac Type Severity Reaction Status Date / Time barium sulfate Allergy Anaphylaxis Verified 01/22/19 16:09 diphtheria, pertussis, Allergy Unknown Verified 01/22/19 16:09 tetanus vacc doxepin [Doxepin] Allergy Anaphylaxis Verified 01/22/19 16:09 ephedrine Allergy Unknown Verified 01/22/19 16:09 ertapenem [From Invanz] Allergy Rash/Hives Verified 01/22/19 16:09 influenza virus vaccine, Allergy severe Verified 01/22/19 16:09 specific swelling [Influenza Virus and hives Vacc,Specific] peanut oil AdvReac Severe Nausea & Verified 01/22/19 16:09 Vomiting,itching doxycycline AdvReac Nausea & Verified 01/22/19 16:09 Vomiting & Diarrhea peanut AdvReac Nausea & Verified 01/22/19 16:09 Vomiting Pertussis Vaccines AdvReac fever/seizu Verified 01/22/19 16:09 re pseudoephedrine AdvReac Chest Pain Verified 01/22/19 16:09 pseudoephedrine HCl AdvReac Chest Pain Verified 01/22/19 16:09 [From Sudafed] sulfamethoxazole AdvReac Nausea & Verified 01/22/19 16:09 [From Bactrim] Vomiting trimethoprim [From Bactrim] AdvReac Nausea & Verified 01/22/19 16:09 Vomiting Physical Exam Vitals: Vital Signs Temp Pulse Pulse Resp BP BP Pulse Ox 01/22/19 23:00 98.8 F 100 20 140/94 98 01/22/19 22:23 99.8 F H 105 H 20 129/87 99 01/22/19 20:55 99.8 F H 109 H 20 128/87 99 01/22/19 18:56 100.1 F H 120 H 16 128/85 94 L 01/22/19 15:23 99.3 F 129 H 18 128/86 96 Intake and Output 01/22/19 01/22/19 01/23/19 14:59 22:59 06:59 Other: Weight 109.316 kg Constitutional: No acute distress, conversant, pleasant Eyes: Anicteric sclerae, moist conjunctiva, no lid-lag Pupils equal round reactive to light ENMT: NC/AT Oropharynx clear, no erythema, exudates Neck: Supple, FROM, no masses, or JVD No carotid bruits No thyromegaly Lungs: Clear to auscultation Clear to percussion Normal respiratory effort, no accessory muscle use Cardiovascular: Heart regular in rate and rhythm, No murmurs, gallops, or rubs No peripheral edema Abdominal: Soft Tenderness to deep palpation of the epigastric region and the right costovertebral angle, no guarding, rebound or rigidity Abdomen moving with respiration Normoactive bowel sounds No hepatomegaly, No splenomegaly No palpable mass No abdominal wall hernia noted Skin: Normal temperature, tone, texture, turgor No induration No subcutaneous nodules No rash, lesions No ulcers Extremities: No digital cyanosis No clubbing Pedal pulses intact and symmetrical Radial pulses intact and symmetrical No calf tenderness Psychiatric: Alert and oriented to person, place and time Appropriate affect fair judgment Neuro Muscles Strength 5/5 in all 4 extremities Sensation to light touch grossly present throughout Cranial nerves II-XII grossly intact No focal sensory deficits Lymphatics: no palpable cervical or supraclavicular , or inguinal lymph nodes Results CBC & Chem 7: 01/22/19 16:28 01/22/19 16:28 Labs: Abnormal Lab Results - Last 24 Hours (Table) 01/22/19 01/22/19 01/22/19 Range/Units 16:28 16:28 16:58 WBC 15.7 H (3.8-10.6) k/uL Neutrophils # 12.5 H (1.3-7.7) k/uL Carbon Dioxide 18 L (22-30) mmol/L Glucose 126 H (74-99) mg/dL POC Glucose (mg/dL) (75-99) mg/dL Urine Appearance Cloudy H (Clear) Urine Protein Trace H (Negative) Ur Leukocyte Esterase Small H (Negative) Urine WBC 29 H (0-5) /hpf Ur Squamous Epith Cells 5 H (0-4) /hpf Urine Mucus Rare H (None) /hpf 01/22/19 Range/Units 22:50 WBC (3.8-10.6) k/uL Neutrophils # (1.3-7.7) k/uL Carbon Dioxide (22-30) mmol/L Glucose (74-99) mg/dL POC Glucose (mg/dL) 113 H (75-99) mg/dL Urine Appearance (Clear) Urine Protein (Negative) Ur Leukocyte Esterase (Negative) Urine WBC (0-5) /hpf Ur Squamous Epith Cells (0-4) /hpf Urine Mucus (None) /hpf Assessment and Plan Assessment: 38-year-old female with complex past medical history including mitochondrial disease admitted as inpatient with anticipated length of stay more than 48 hours due to sepsis secondary to UTI patient has a Mediport presented with fevers for 2 days along with nausea vomiting new-onset epigastric and right flank pain she was found to have a temperature in the ER was slightly dirty UA and was admitted for management of sepsis secondary to UTI rule out Mediport infection Plan: Sepsis secondary to UTI UTI Check blood cultures and urine cultures Follow-up vital signs and labs Patient started on Rocephin IV fluid hydration Pain control Chronic conditions Mitochondrial disease Diabetes mellitus continue with insulin sliding scale and long-acting insulin History of Mediport insertion for blood draws and IV medications, patient receives IV fluids as an outpatient every 2 weeks and has history of recurrent urinary tract infection for which she is requiring the Mediport for easy access. History of DVT History of thyroid disease Continue home medications DVT prophylaxis patient is on Xarelto due to chronic DVT CODE STATUS: Full code Discussed with: Patient, ER, RN Anticipated discharge: 48-[address]: Home A total of60 minutes was spent on the care of this complex patient more than 50 % of the time was spent in counseling and care coordination.
[2019-01-23 07:04] LABS: Glucose,Whole Blood 142 mg/dL (75-99)
[2019-01-23] MEDS ORDERED: PROCHLORPERAZINE SUPPOSITORY 25 MG SUPP RECTAL PRN (08:00)
[2019-01-23] MEDS: MAGNESIUM OXIDE 400 MG TAB PO SCH (08:52)
[2019-01-23] MEDS: PANTOPRAZOLE 40 MG TABLET PO SCH (08:52)
[2019-01-23] MEDS: FERROUS SULFATE 325 MG TAB PO SCH (08:52)
[2019-01-23] MEDS: INSULIN ASPART (NovoLOG) 100 UNIT/ML VIAL SQ SCH ×4 (08:52→20:55)
[2019-01-23] MEDS: METOPROLOL SUCCINATE (ER) 100 MG TAB.ER.24H PO SCH (08:52)
[2019-01-23] MEDS: FLUTICASONE 50MCG/SPRAY NASAL 16GM EA NOSTRIL SCH (08:53)
[2019-01-23] MEDS: LOSARTAN 50 MG TAB PO SCH (08:53)
[2019-01-23] MEDS: LURASIDONE 20 MG TAB PO SCH (08:53)
[2019-01-23] MEDS: LORATADINE 10 MG TAB PO SCH (08:53)
[2019-01-23] MEDS: CYANOCOBALAMIN 500 MCG TAB PO SCH (08:53)
[2019-01-23] MEDS: RIVAROXABAN 20 MG TAB PO SCH (08:54)
[2019-01-23] MEDS: VENLAFAXINE HCL ER 75 MG CAP PO SCH (08:55)
[2019-01-23 09:38] LABS: Basophils % (A) 0 %; Eosinophils # (A) 0.3 k/uL (0-0.7); Eosinophils % (A) 3 %; HCT 35.4 % (34.0-46.0); HGB 11.4 gm/dL (11.4-16.0); Lymphocytes # (A) 1.9 k/uL (1.0-4.8); Lymphocytes % (A) 20 %; MCH 28.5 pg (25.0-35.0); MCHC 32.2 g/dL (31.0-37.0); MCV 88.6 fL (80.0-100.0); Mean Platelet Volume 7.6; Monocytes # (A) 0.6 k/uL (0-1.0); Monocytes % (A) 6 %; Neutrophils # (A) 6.6 k/uL (1.3-7.7); Neutrophils % (A) 69 %; Platelet Count 309 k/uL (150-450); RBC 3.99 m/uL (3.80-5.40); RDW 13.6 % (11.5-15.5); WBC 9.6 k/uL (3.8-10.6)
[2019-01-23 09:51] LABS: ALT 27 U/L (9-52); AST 18 U/L (14-36); Albumin 3.7 g/dL (3.5-5.0); Alkaline Phosphatase 75 U/L (38-126); Anion Gap 9 mmol/L; Blood Urea Nitrogen 13 mg/dL (7-17); Calcium 9.3 mg/dL (8.4-10.2); Carbon Dioxide 17 mmol/L (22-30); Chloride 115 mmol/L (98-107); Glucose 121 mg/dL (74-99); Potassium 4.6 mmol/L (3.5-5.1); Sodium 141 mmol/L (137-145); Total Bilirubin 0.3 mg/dL (0.2-1.3); Total Protein 6.5 g/dL (6.3-8.2)
--- NOTE | 2019-01-23 10:15 | P.PN ---
Subjective Progress Note Date: 01/23/19 Patient seen and examined at bedside and, complain of lower abdominal pain and nausea, poor appetite this morning. Reports a history of recurrent UTIs reporting greater than 5 UTIs last year, has not been seen by urologist currently not on any prophylactic antibiotics. Reports history of neurogenic bladder and autonomic dysautonomia. T-max 99.8, leukocytosis resolving Objective - Vital Signs Vital signs: Vital Signs Temp 98.5 F 01/23/19 05:49 Pulse 80 01/23/19 08:40 Resp 20 01/23/19 05:49 BP 113/77 01/23/19 08:40 Pulse Ox 98 01/23/19 05:49 Intake & Output 01/22/19 01/23/19 01/23/19 18:59 06:59 18:59 Intake Total 100 Balance 100 Weight 109.316 kg Intake: Oral 100 Other: # Voids 1 - Exam Constitutional: No acute distress, conversant, pleasant Eyes: Anicteric sclerae, moist conjunctiva, no lid-lag, PERRLA ENMT: NC/AT,Oropharynx clear, no erythema, exudates Neck:Supple, FROM, no masses, or JVD, No carotid bruits; No thyromegaly Lungs: Clear to auscultation, Clear to percussion, Normal respiratory effort, no accessory muscle use Cardiovascular: Heart regular in rate and rhythm, No murmurs, gallops, or rubs no peripheral edema Abdominal: Soft Nontender, nom distended, no guarding, no rebound or rigidity, Normoactive bowel sounds No hepatomegaly, No splenomegaly, No palpable mass No abdominal wall hernia noted Skin: Normal temperature, tone, texture, turgor, No induration No subcutaneous nodules, No rash, lesions, No ulcers Extremities:No digital cyanosis No clubbing, Pedal pulses intact and symmetrical Radial pulses intact and symmetrical Normal gait and station, No calf tenderness Psychiatric: Alert and oriented to person, place and time, Appropriate affect Intact judgement Neuro: Muscles Strength 5/5 in all 4 extremities, Sensation to light touch grossly present throughout, Cranial nerves II-XII grossly intact. No focal sensory deficits - Labs CBC & Chem 7: 01/23/19 08:42 01/23/19 08:42 Labs: Abnormal Lab Results - Last 24 Hours (Table) 01/22/19 01/22/19 01/22/19 Range/Units 16:28 16:28 16:58 WBC 15.7 H (3.8-10.6) k/uL Neutrophils # 12.5 H (1.3-7.7) k/uL Chloride (98-107) mmol/L Carbon Dioxide 18 L (22-30) mmol/L Glucose 126 H (74-99) mg/dL POC Glucose (mg/dL) (75-99) mg/dL Urine Appearance Cloudy H (Clear) Urine Protein Trace H (Negative) Ur Leukocyte Esterase Small H (Negative) Urine WBC 29 H (0-5) /hpf Ur Squamous Epith Cells 5 H (0-4) /hpf Urine Mucus Rare H (None) /hpf 01/22/19 01/23/19 01/23/19 Range/Units 22:50 07:03 08:42 WBC (3.8-10.6) k/uL Neutrophils # (1.3-7.7) k/uL Chloride 115 H (98-107) mmol/L Carbon Dioxide 17 L (22-30) mmol/L Glucose 121 H (74-99) mg/dL POC Glucose (mg/dL) 113 H 142 H (75-99) mg/dL Urine Appearance (Clear) Urine Protein (Negative) Ur Leukocyte Esterase (Negative) Urine WBC (0-5) /hpf Ur Squamous Epith Cells (0-4) /hpf Urine Mucus (None) /hpf Assessment and Plan (1) Sepsis Narrative/Plan: * Leukocytosis resolving, afebrile * Secondary to UTI, hemodynamically stable * Urine culture pending, blood culture pending * Continue with Rocephin 1 g IV daily Current Visit: Yes Status: Acute Code(s): A41.9 - SEPSIS, UNSPECIFIED ORGANISM SNOMED Code(s): 10033556 (2) Urinary tract infection Narrative/Plan: * History of recurrent UTIs Possibly secondary to neurogenic bladder and dysautonomia * Treatment as above urine culture ordered * Consult placed to urology and ID Current Visit: Yes Status: Acute Code(s): N39.0 - URINARY TRACT INFECTION, SITE NOT SPECIFIED SNOMED Code(s): 53723618 (3) Type 2 diabetes mellitus Narrative/Plan: * Blood sugar stable and controlled * Continue insulin regimen Levemir 35 units daily at bedtime along with correctional scale coverage Current Visit: Yes Status: Acute Code(s): E11.9 - TYPE 2 DIABETES MELLITUS WITHOUT COMPLICATIONS SNOMED Code(s): 26769405 (4) History of DVT (deep vein thrombosis) Narrative/Plan: * Continue DOAC with Xarelto Current Visit: No Status: Chronic Code(s): Z86.718 - PERSONAL HISTORY OF OTHER VENOUS THROMBOSIS AND EMBOLISM SNOMED Code(s): 135842559
[2019-01-23] MEDS: MODAFINIL 200 MG TAB PO SCH (11:04)
[2019-01-23 11:48] LABS: Glucose,Whole Blood 138 mg/dL (75-99)
[2019-01-23] MEDS: SODIUM CHLORIDE 0.9% 1,000 ML IV SCH (12:48)
--- NOTE | 2019-01-23 14:38 | P.GSCN ---
History of Present Illness Consult date: 01/23/19 History of present illness: 38 yo female in the hospital with a uti. SHe has had recurrent utis over the last few years these are symptomatic lower tract utis. SHe had a normal renal us recently SHe has a history of DM and a gentic disorder called mitochondrial disease. She is feeling better She is not on any half-way treatment for chronic cystitis. Review of Systems - Constitutional Reports anorexia, Reports chronic pain, Reports lethargy, Reports weakness - Genitourinary Genitourinary: Reports as per HPI Past Medical History Past Medical History: Chest Pain / Angina, CVA/TIA, Diabetes Mellitus, Deep Vein Thrombosis (DVT), Neurologic Disorder, Syncope, Thyroid Disorder Additional Past Medical History / Comment(s): "STROKE LIKE EPISODE D/T MITOCHRONDIAL DISEASE HAD WORK UP DONE AT [facility]. WEARS A BRACE ON LT ANKLE AND LT WRIST".Dysautonomia-progressive neurological disorder, lupus/LUPUS ANTICOAGULANTS, 2003 CVA without residual, ana maria's disease, lymphedema Lt arm d/t DVTs , v-tach, pituitary microadenoma. "mitochondrial disease". patent foramen ovale, narcolepsy, gastropareis, IDDM type II, uti's, falls, orthostatic hypotension/syncope,migraines with hemiplegia, pernicious anemia, polycystic ovarian syndrome, neuropathy bilateral legs/fee-mild, uterine ablation August 2015/patient no longer has periods-had uterine ablation uti's. , midline access for fluids-current access issues has contacted dr quigley. History of Any Multi-Drug Resistant Organisms: ESBL, MRSA Year Discovered:: 03/09/17 MRSA/ 05/17/18 ESBL MDRO Source:: MRSA LEFT ARM,/ESBL URINE ECOLI Past Surgical History: Ablation, Uterine Ablation Additional Past Surgical History / Comment(s): colonscopy/egd, angie, stress test. PORT-A -CATH INSERTION 04-28-18 Past Anesthesia/Blood Transfusion Reactions: No Reported Reaction Additional Past Anesthesia/Blood Transfusion Reaction / Comm: patient states " It takes a lot of anesthesia for my body to react". Pt has received blood in past without reaction. Past Psychological History: Bipolar, Depression Smoking Status: Never smoker Past Alcohol Use History: None Reported Past Drug Use History: None Reported - Past Family History Brother(s) Family Medical History: Diabetes Mellitus, Hyperlipidemia, Hypertension Additional Family Medical History / Comment(s): Patient states she has 1 brother with no major medical problems. Father Family Medical History: Diabetes Mellitus, Hyperlipidemia, Hypertension Additional Family Medical History / Comment(s): DAD IS 70 YEARS OLD. Patient states she does not have any contact with her father and does not know his medical history. Mother Family Medical History: CVA/TIA, Deep Vein Thrombosis (DVT) Additional Family Medical History / Comment(s): antiphospholipid antibody syndrome Medications and Allergies Home Medications Medication Instructions Recorded Confirmed Type Rivaroxaban [Xarelto] 20 mg PO DAILY 03/09/17 01/22/19 History tiZANidine [Zanaflex] 8 mg PO HS 03/09/17 01/22/19 History Metoclopramide [Reglan] 10 mg PO QID 07/29/17 01/22/19 History Metoprolol Succinate (ER) [Toprol 100 mg PO DAILY 10/24/17 01/22/19 History XL] Ondansetron [Zofran ODT] 8 mg PO Q6H PRN 05/23/18 01/22/19 History Butalb/APAP/Caff 50-325-40Mg 1 tab PO Q8H PRN 06/11/18 01/22/19 History [Fioricet 50-325-40] Fenofibrate 160 mg PO DAILY 09/01/18 01/22/19 History Modafinil [Provigil] 200 mg PO DAILY 09/01/18 01/22/19 History Cholecalciferol [Vitamin D3] 2,000 unit PO DAILY tab 09/11/18 01/22/19 Rx diphenhydrAMINE [Benadryl] 150 mg PO HS cap 09/11/18 01/22/19 Rx Meloxicam [Mobic] 15 mg PO DAILY 09/15/18 01/22/19 History Topiramate [Topamax] 75 mg PO BID 10/17/18 01/22/19 History Gabapentin [Neurontin] 400 mg PO TID 11/15/18 01/22/19 History Lurasidone [Latuda] 60 mg PO DAILY 11/15/18 01/22/19 History Dexlansoprazole [Dexilant] 30 mg PO QAM 12/04/18 01/22/19 History Ferrous Sulfate [Feosol] 325 mg PO DAILY 12/04/18 01/22/19 History Fluticasone Nasal [place] [Flonase 2 spr EA NOSTRIL DAILY 12/04/18 01/22/19 History Nasal [place]] INSULIN ASPART (NovoLOG) [NovoLOG See Protocol SQ ACHS 12/04/18 01/22/19 History (formulary)] Insulin Glargine [Lantus] 35 unit SQ HS 12/04/18 01/22/19 History Loratadine 10 mg PO QAM 12/04/18 01/22/19 History Losartan [Cozaar] 50 mg PO DAILY 12/04/18 01/22/19 History Magnesium Oxide [Mag-Ox] 250 mg PO DAILY 12/04/18 01/22/19 History Prochlorperazine Suppository 25 mg RECTAL Q8HR PRN 12/04/18 01/22/19 History [Compazine] tiZANidine [Zanaflex] 4 mg PO BID 12/04/18 01/22/19 History hydrOXYzine PAMOATE [Vistaril] 50 mg PO Q12HR PRN 12/05/18 01/22/19 History Melatonin 10 mg PO HS 12/19/18 01/22/19 History Levothyroxine Sodium [Synthroid] 100 mcg PO DAILY 01/16/19 01/22/19 History Promethazine [Phenergan] 25 mg PO Q6HR PRN 01/16/19 01/22/19 History Venlafaxine HCl ER [Effexor XR] 225 mg PO DAILY 01/16/19 01/22/19 History Cyanocobalamin (Vitamin B-12) 2,000 mcg PO DAILY 01/22/19 01/22/19 History [Vitamin B-12] Levothyroxine Sodium [Synthroid] 125 mcg PO DAILY 01/22/19 01/22/19 History Allergies Allergy/AdvReac Type Severity Reaction Status Date / Time barium sulfate Allergy Anaphylaxis Verified 01/22/19 16:09 diphtheria, pertussis, Allergy Unknown Verified 01/22/19 16:09 tetanus vacc doxepin [Doxepin] Allergy Anaphylaxis Verified 01/22/19 16:09 ephedrine Allergy Unknown Verified 01/22/19 16:09 ertapenem [From Invanz] Allergy Rash/Hives Verified 01/22/19 16:09 influenza virus vaccine, Allergy severe Verified 01/22/19 16:09 specific swelling [Influenza Virus and hives Vacc,Specific] peanut oil AdvReac Severe Nausea & Verified 01/22/19 16:09 Vomiting,itching doxycycline AdvReac Nausea & Verified 01/22/19 16:09 Vomiting & Diarrhea peanut AdvReac Nausea & Verified 01/22/19 16:09 Vomiting Pertussis Vaccines AdvReac fever/seizu Verified 01/22/19 16:09 re pseudoephedrine AdvReac Chest Pain Verified 01/22/19 16:09 pseudoephedrine HCl AdvReac Chest Pain Verified 01/22/19 16:09 [From Sudafed] sulfamethoxazole AdvReac Nausea & Verified 01/22/19 16:09 [From Bactrim] Vomiting trimethoprim [From Bactrim] AdvReac Nausea & Verified 01/22/19 16:09 Vomiting Surgical - Exam Vital Signs Temp Pulse Resp BP Pulse Ox 99.3 F 129 H 18 128/86 96 01/22/19 15:23 01/22/19 15:23 01/22/19 15:23 01/22/19 15:23 01/22/19 15:23 - General well developed, well nourished, no distress, obese - Eyes PERRL - ENT no hearing loss - Neck no masses - Respiratory normal expansion, normal respiratory effort - Cardiovascular Rhythm: regular - Abdomen Abdomen: non tender - Neurologic normal coordination, normal sensation - Musculoskeletal normal posture - Psychiatric oriented to time, oriented to place, memory intact Results - Labs 01/23/19 08:42 01/23/19 08:42 Abnormal Lab Results - Last 24 Hours (Table) 01/22/19 01/22/19 01/22/19 Range/Units 16:28 16:28 16:58 WBC 15.7 H (3.8-10.6) k/uL Neutrophils # 12.5 H (1.3-7.7) k/uL Chloride (98-107) mmol/L Carbon Dioxide 18 L (22-30) mmol/L Glucose 126 H (74-99) mg/dL POC Glucose (mg/dL) (75-99) mg/dL Urine Appearance Cloudy H (Clear) Urine Protein Trace H (Negative) Ur Leukocyte Esterase Small H (Negative) Urine WBC 29 H (0-5) /hpf Ur Squamous Epith Cells 5 H (0-4) /hpf Urine Mucus Rare H (None) /hpf 01/22/19 01/23/19 01/23/19 Range/Units 22:50 07:03 08:42 WBC (3.8-10.6) k/uL Neutrophils # (1.3-7.7) k/uL Chloride 115 H (98-107) mmol/L Carbon Dioxide 17 L (22-30) mmol/L Glucose 121 H (74-99) mg/dL POC Glucose (mg/dL) 113 H 142 H (75-99) mg/dL Urine Appearance (Clear) Urine Protein (Negative) Ur Leukocyte Esterase (Negative) Urine WBC (0-5) /hpf Ur Squamous Epith Cells (0-4) /hpf Urine Mucus (None) /hpf 01/23/19 Range/Units 11:47 WBC (3.8-10.6) k/uL Neutrophils # (1.3-7.7) k/uL Chloride (98-107) mmol/L Carbon Dioxide (22-30) mmol/L Glucose (74-99) mg/dL POC Glucose (mg/dL) 138 H (75-99) mg/dL Urine Appearance (Clear) Urine Protein (Negative) Ur Leukocyte Esterase (Negative) Urine WBC (0-5) /hpf Ur Squamous Epith Cells (0-4) /hpf Urine Mucus (None) /hpf Diabetes panel 01/22/19 01/23/19 Range/Units 16:28 08:42 Sodium 140 141 (137-145) mmol/L Potassium 4.2 4.6 (3.5-5.1) mmol/L Chloride 107 115 H (98-107) mmol/L Carbon Dioxide 18 L 17 L (22-30) mmol/L BUN 16 13 (7-17) mg/dL Creatinine 0.73 0.61 (0.52-1.04) mg/dL Glucose 126 H 121 H (74-99) mg/dL Calcium 10.2 9.3 (8.4-10.2) mg/dL AST 17 18 (14-36) U/L ALT 28 27 (9-52) U/L Alkaline Phosphatase 101 75 (38-126) U/L Total Protein 8.0 6.5 (6.3-8.2) g/dL Albumin 4.8 3.7 (3.5-5.0) g/dL Calcium panel 01/22/19 01/23/19 Range/Units 16:28 08:42 Calcium 10.2 9.3 (8.4-10.2) mg/dL Albumin 4.8 3.7 (3.5-5.0) g/dL Pituitary panel 01/22/19 01/23/19 Range/Units 16:28 08:42 Sodium 140 141 (137-145) mmol/L Potassium 4.2 4.6 (3.5-5.1) mmol/L Chloride 107 115 H (98-107) mmol/L Carbon Dioxide 18 L 17 L (22-30) mmol/L BUN 16 13 (7-17) mg/dL Creatinine 0.73 0.61 (0.52-1.04) mg/dL Glucose 126 H 121 H (74-99) mg/dL Calcium 10.2 9.3 (8.4-10.2) mg/dL Adrenal panel 01/22/19 01/23/19 Range/Units 16:28 08:42 Sodium 140 141 (137-145) mmol/L Potassium 4.2 4.6 (3.5-5.1) mmol/L Chloride 107 115 H (98-107) mmol/L Carbon Dioxide 18 L 17 L (22-30) mmol/L BUN 16 13 (7-17) mg/dL Creatinine 0.73 0.61 (0.52-1.04) mg/dL Glucose 126 H 121 H (74-99) mg/dL Calcium 10.2 9.3 (8.4-10.2) mg/dL Total Bilirubin 0.4 0.3 (0.2-1.3) mg/dL AST 17 18 (14-36) U/L ALT 28 27 (9-52) U/L Alkaline Phosphatase 101 75 (38-126) U/L Total Protein 8.0 6.5 (6.3-8.2) g/dL Albumin 4.8 3.7 (3.5-5.0) g/dL - Imaging CT scan - abdomen: report reviewed, image reviewed CT scan - pelvis: report reviewed, image reviewed Assessment and Plan Assessment: Impression. Acute cystitis upon chronic cystitis. Her ct scan was normal SHe needs a post void residual SHe would benefit from methenamine 1 gm bid as an antiseptic. She whould be seen upon discharge in the office I will consider a cystoscopy at that time.
[2019-01-23 17:24] LABS: Glucose,Whole Blood 89 mg/dL (75-99)
[2019-01-23 21:00] LABS: Glucose,Whole Blood 183 mg/dL (75-99)
--- NOTE | 2019-01-23 22:56 | P.CONS ---
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 She also has a history of hemiplegic migraines. Patient has been under the care of her primary care physician and with IV fluids every other week she has avoided significant amounts of dehydration and recurrent hospital admissions due to this. She'll now presents emergency center feeling poorly with fever, chills generalized malaise and concerns for urinary tract infection. She's noted a have multiple urinary tract infections over time. With ongoing hydration she's had a significant improvement of her health and has not had multiple medical hospitalizations. She has had psychiatric interventions to help her with her medications and is followed by [facility]. She believes medicines have been helping as of late. Review of Systems HEENT:Denies headache or acute visual change. Denies sinus or mouth discomforts. Denies neck stiffness or pain. Denies significant oral cavity pain. Denies difficulty on swallowing. Lungs: Denies significant shortness of breath, cough, sputum production, or hemoptysis. Cardiovascular: Denies significant shortness of breath, chest pain, chest wall pain, orthopnea, dyspnea on exertion, syncope Gastrointestinal: Nausea emesis of improved since coming to Hospital Musculoskeletal: denies significant myalgias or arthralgias. No new joint swelling. Denies new back pain. Skin: Denies new rash or lesions. No new ulcers or wounds are related.. Neuro: Denies headache or visual change. Denies any new onset weakness or difficulty with ambulation. Denies falls or seizures. Psychiatric:Denies anxiety or depression. Well treated at this time Endocrine: Chronic fatigue weight is stable Chronic urinary symptoms Past Medical History Past Medical History: Chest Pain / Angina, CVA/TIA, Diabetes Mellitus, Deep Vein Thrombosis (DVT), Neurologic Disorder, Syncope, Thyroid Disorder Additional Past Medical History / Comment(s): "STROKE LIKE EPISODE D/T MITOCHRONDIAL DISEASE HAD WORK UP DONE AT [facility]. WEARS A BRACE ON LT ANKLE AND LT WRIST".Dysautonomia-progressive neurological disorder, lupus/LUPUS ANTICOAGULANTS, 2004 CVA without residual, ana maria's disease, lymphedema Lt arm d/t DVTs , v-tach, pituitary microadenoma. "mitochondrial disease". patent foramen ovale, narcolepsy, gastropareis, IDDM type II, uti's, falls, orthostatic hypotension/syncope,migraines with hemiplegia, pernicious anemia, polycystic ovarian syndrome, neuropathy bilateral legs/fee-mild, uterine ablation August 2015/patient no longer has periods-had uterine ablation uti's. , midline access for fluids-current access issues has contacted dr quigley. History of Any Multi-Drug Resistant Organisms: ESBL, MRSA Year Discovered:: 03/09/17 MRSA/ 05/17/18 ESBL MDRO Source:: MRSA LEFT ARM,/ESBL URINE ECOLI Past Surgical History: Ablation, Uterine Ablation Additional Past Surgical History / Comment(s): colonscopy/egd, angie, stress test. PORT-A -CATH INSERTION 04-28-18 Past Anesthesia/Blood Transfusion Reactions: No Reported Reaction Additional Past Anesthesia/Blood Transfusion Reaction / Comm: patient states " It takes a lot of anesthesia for my body to react". Pt has received blood in past without reaction. Past Psychological History: Bipolar, Depression Additional Psychological History / Comment(s): Single and lives with her mother. Has a pet dog. No experience. International travel. No tobacco or alcohol use Smoking Status: Never smoker Past Alcohol Use History: None Reported Past Drug Use History: None Reported - Past Family History Brother(s) Family Medical History: Diabetes Mellitus, Hyperlipidemia, Hypertension Additional Family Medical History / Comment(s): Patient states she has 1 brother with no major medical problems. Father Family Medical History: Diabetes Mellitus, Hyperlipidemia, Hypertension Additional Family Medical History / Comment(s): DAD IS 70 YEARS OLD. Patient states she does not have any contact with her father and does not know his medical history. Mother Family Medical History: CVA/TIA, Deep Vein Thrombosis (DVT) Additional Family Medical History / Comment(s): antiphospholipid antibody syndrome Medications and Allergies Home Medications and Allergies Comment(s): Current Medications Acetaminophen (Tylenol Tab) 650 mg PO Q6HR PRN PRN Reason: Mild Pain or Fever > 100.5 Acetaminophen/Butalbital/Caffeine (Fioricet 50-325-40) 1 each PO Q8H PRN PRN Reason: Migraine Headache Al Hydroxide/Mg Hydroxide (Maalox) 30 ml PO Q4HR PRN PRN Reason: GI Upset Cyanocobalamin (Vitamin B-12) 2,000 mcg PO DAILY [facility] Last Admin: 01/23/19 08:53 Dose: 2,000 mcg Diphenhydramine HCl (Benadryl) 150 mg PO [facility] Last Admin: 01/23/19 21:01 Dose: 150 mg Ferrous Sulfate (Feosol) 325 mg PO DAILY [facility] Last Admin: 01/23/19 08:52 Dose: 325 mg Fluticasone Propionate (Flonase Nasal [place]) 2 spray EA NOSTRIL DAILY [facility] Last Admin: 01/23/19 08:53 Dose: Not Given Gabapentin (Neurontin) 400 mg PO TID [facility] Last Admin: 01/23/19 21:01 Dose: 400 mg Hydroxyzine Pamoate (Vistaril) 50 mg PO Q12HR PRN PRN Reason: Anxiety Sodium Chloride (Saline 0.9%) 1,000 mls @ 60 mls/hr IV .[id number] [facility] Last Admin: 01/23/19 12:48 Dose: 60 mls/hr Ceftriaxone Sodium 1 gm/ (Sodium Chloride) 50 mls @ 100 mls/hr IVPB Q24HR [facility] Last Admin: 01/23/19 11:04 Dose: 100 mls/hr Ibuprofen (Motrin) 400 mg PO Q6HR PRN PRN Reason: Mild Pain or Fever > 100.5 Last Admin: 01/23/19 00:41 Dose: 400 mg Insulin Aspart (Novolog) 0 unit SQ [facility]; Protocol Last Admin: 01/23/19 20:55 Dose: Not Given Insulin Detemir (Levemir) 35 unit SQ [facility] Last Admin: 01/23/19 21:01 Dose: 35 unit Levothyroxine Sodium (Synthroid) 100 mcg PO DAILY@0630 [facility] Last Admin: 01/23/19 05:46 Dose: 100 mcg Levothyroxine Sodium (Synthroid) 125 mcg PO DAILY@0630 [facility] Last Admin: 01/23/19 05:46 Dose: 125 mcg Loratadine (Claritin) 10 mg PO QAM [facility] Last Admin: 01/23/19 08:53 Dose: 10 mg Losartan Potassium (Cozaar) 50 mg PO DAILY [facility] Last Admin: 01/23/19 08:53 Dose: 50 mg Lurasidone HCl (Latuda) 60 mg PO [id number] [facility] Last Admin: 01/23/19 08:53 Dose: 60 mg Magnesium Oxide (Mag-Ox) 400 mg PO DAILY [facility] Last Admin: 01/23/19 08:52 Dose: 400 mg Melatonin (Melatonin) 10 mg PO HS [facility] Last Admin: 01/23/19 21:01 Dose: 10 mg Metoclopramide HCl (Reglan) 10 mg PO QID [facility] Last Admin: 01/23/19 21:01 Dose: 10 mg Metoprolol Succinate (Toprol Xl) 100 mg PO DAILY [facility] Last Admin: 01/23/19 08:52 Dose: 100 mg Modafinil (Provigil) 200 mg PO DAILY [facility] Last Admin: 01/23/19 11:04 Dose: 200 mg Naloxone HCl (Narcan) 0.2 mg IV Q2M PRN PRN Reason: Opioid Reversal Ondansetron HCl (Zofran Odt) 8 mg PO Q6H PRN PRN Reason: Nausea Last Admin: 01/23/19 15:45 Dose: 8 mg Pantoprazole Sodium (Protonix) 40 mg PO QAM [facility] Last Admin: 01/23/19 08:52 Dose: 40 mg Prochlorperazine Maleate (Compazine) 25 mg RECTAL Q8HR PRN PRN Reason: Nausea Promethazine HCl (Phenergan) 25 mg PO Q6HR PRN PRN Reason: Nausea Rivaroxaban (Xarelto) 20 mg PO DAILY [facility] Last Admin: 01/23/19 08:54 Dose: 20 mg Tizanidine HCl (Zanaflex) 4 mg PO 0900,1700 [facility] Last Admin: 01/23/19 17:33 Dose: 4 mg Tizanidine HCl (Zanaflex) 8 mg PO HS [facility] Last Admin: 01/23/19 21:01 Dose: 8 mg Topiramate (Topamax) 75 mg PO BID [facility] Last Admin: 01/23/19 21:01 Dose: 75 mg Venlafaxine HCl (Effexor Xr) 225 mg PO DAILY [facility] Last Admin: 01/23/19 08:55 Dose: 225 mg Home Medications Medication Instructions Recorded Confirmed Type Rivaroxaban [Xarelto] 20 mg PO DAILY 03/09/17 01/22/19 History tiZANidine [Zanaflex] 8 mg PO HS 03/09/17 01/22/19 History Metoclopramide [Reglan] 10 mg PO QID 07/29/17 01/22/19 History Metoprolol Succinate (ER) [Toprol 100 mg PO DAILY 10/24/17 01/22/19 History XL] Ondansetron [Zofran ODT] 8 mg PO Q6H PRN 05/23/18 01/22/19 History Butalb/APAP/Caff 50-325-40Mg 1 tab PO Q8H PRN 06/11/18 01/22/19 History [Fioricet 50-325-40] Fenofibrate 160 mg PO DAILY 09/01/18 01/22/19 History Modafinil [Provigil] 200 mg PO DAILY 09/01/18 01/22/19 History Cholecalciferol [Vitamin D3] 2,000 unit PO DAILY tab 09/11/18 01/22/19 Rx diphenhydrAMINE [Benadryl] 150 mg PO HS cap 09/11/18 01/22/19 Rx Meloxicam [Mobic] 15 mg PO DAILY 09/15/18 01/22/19 History Topiramate [Topamax] 75 mg PO BID 10/17/18 01/22/19 History Gabapentin [Neurontin] 400 mg PO TID 11/15/18 01/22/19 History Lurasidone [Latuda] 60 mg PO DAILY 11/15/18 01/22/19 History Dexlansoprazole [Dexilant] 30 mg PO QAM 12/04/18 01/22/19 History Ferrous Sulfate [Feosol] 325 mg PO DAILY 12/04/18 01/22/19 History Fluticasone Nasal [place] [Flonase 2 spr EA NOSTRIL DAILY 12/04/18 01/22/19 History Nasal [place]] INSULIN ASPART (NovoLOG) [NovoLOG See Protocol SQ ACHS 12/04/18 01/22/19 History (formulary)] Insulin Glargine [Lantus] 35 unit SQ HS 12/04/18 01/22/19 History Loratadine 10 mg PO QAM 12/04/18 01/22/19 History Losartan [Cozaar] 50 mg PO DAILY 12/04/18 01/22/19 History Magnesium Oxide [Mag-Ox] 250 mg PO DAILY 12/04/18 01/22/19 History Prochlorperazine Suppository 25 mg RECTAL Q8HR PRN 12/04/18 01/22/19 History [Compazine] tiZANidine [Zanaflex] 4 mg PO BID 12/04/18 01/22/19 History hydrOXYzine PAMOATE [Vistaril] 50 mg PO Q12HR PRN 12/05/18 01/22/19 History Melatonin 10 mg PO HS 12/19/18 01/22/19 History Levothyroxine Sodium [Synthroid] 100 mcg PO DAILY 01/16/19 01/22/19 History Promethazine [Phenergan] 25 mg PO Q6HR PRN 01/16/19 01/22/19 History Venlafaxine HCl ER [Effexor XR] 225 mg PO DAILY 01/16/19 01/22/19 History Cyanocobalamin (Vitamin B-12) 2,000 mcg PO DAILY 01/22/19 01/22/19 History [Vitamin B-12] Levothyroxine Sodium [Synthroid] 125 mcg PO DAILY 01/22/19 01/22/19 History Allergies Allergy/AdvReac Type Severity Reaction Status Date / Time barium sulfate Allergy Anaphylaxis Verified 01/22/19 16:09 diphtheria, pertussis, Allergy Unknown Verified 01/22/19 16:09 tetanus vacc doxepin [Doxepin] Allergy Anaphylaxis Verified 01/22/19 16:09 ephedrine Allergy Unknown Verified 01/22/19 16:09 ertapenem [From Invanz] Allergy Rash/Hives Verified 01/22/19 16:09 influenza virus vaccine, Allergy severe Verified 01/22/19 16:09 specific swelling [Influenza Virus and hives Vacc,Specific] peanut oil AdvReac Severe Nausea & Verified 01/22/19 16:09 Vomiting,itching doxycycline AdvReac Nausea & Verified 01/22/19 16:09 Vomiting & Diarrhea peanut AdvReac Nausea & Verified 01/22/19 16:09 Vomiting Pertussis Vaccines AdvReac fever/seizu Verified 01/22/19 16:09 re pseudoephedrine AdvReac Chest Pain Verified 01/22/19 16:09 pseudoephedrine HCl AdvReac Chest Pain Verified 01/22/19 16:09 [From Sudafed] sulfamethoxazole AdvReac Nausea & Verified 01/22/19 16:09 [From Bactrim] Vomiting trimethoprim [From Bactrim] AdvReac Nausea & Verified 01/22/19 16:09 Vomiting Physical Exam Vitals: Vital Signs Temp Pulse Resp BP Pulse Ox 01/23/19 22:05 98.7 F 83 20 110/69 97 01/23/19 15:00 99.3 F 98 16 107/69 98 01/23/19 08:40 80 113/77 01/23/19 05:49 98.5 F 66 20 107/71 98 01/22/19 23:00 98.8 F 100 20 140/94 98 Intake and Output 01/23/19 01/23/19 01/23/19 06:59 14:59 22:59 Intake Total 100 400 Balance 100 400 Intake: Oral 100 400 Other: Voiding Method Toilet Toilet # Voids 1 3 100 # Bowel Movements 0 38-year-old woman, no distress, has obesity HEENT: Anicteric conjunctiva are pink and moist nasal mucosa grossly intact without significant lesions, there is no thrush. Neck: The neck is supple without significant lymphadenopathy or thyromegaly. Lungs: Good bilateral air entry without significant crackles or wheezing. There is no significant bronchial sounds. There is no egophony or dullness. Heart: Regular rate and rhythm with an audible S1-S2, no S3 no S4. There is no significant murmur click or rub, PMI was nondisplaced. Abdomen: Obese, Positive bowel sounds soft and nontender without palpable masses or organomegaly. There was no guarding or rebound. No flank tenderness Extremities: The upper extremities have excellent pulses they are symmetric, no significant petechiae or telangiectasia. No splinter hemorrhages were noted. The lower extremities are free from significant edema. The peripheral pulses were 2+ and symmetric. Neuro: Awake alert oriented to person place and time. Generalized weakness Results CBC & Chem 7: 01/23/19 08:42 01/23/19 08:42 Labs: Abnormal Lab Results - Last 24 Hours (Table) 01/22/19 01/23/19 01/23/19 Range/Units 22:50 07:03 08:42 Chloride 115 H (98-107) mmol/L Carbon Dioxide 17 L (22-30) mmol/L Glucose 121 H (74-99) mg/dL POC Glucose (mg/dL) 113 H 142 H (75-99) mg/dL 01/23/19 01/23/19 Range/Units 11:47 20:40 Chloride (98-107) mmol/L Carbon Dioxide (22-30) mmol/L Glucose (74-99) mg/dL POC Glucose (mg/dL) 138 H 183 H (75-99) mg/dL Microbiology - Last 24 Hours (Table) 01/23/19 11:32 Urine Culture - Preliminary Urine,Voided Laboratory Results WBC 9.6 k/uL (3.8-10.6) 01/23/19 08:42 RBC 3.99 m/uL (3.80-5.40) 01/23/19 08:42 Hgb 11.4 gm/dL (11.4-16.0) 01/23/19 08:42 Hct 35.4 % (34.0-46.0) 01/23/19 08:42 MCV 88.6 fL (80.0-100.0) 01/23/19 08:42 MCH 28.5 pg (25.0-35.0) 01/23/19 08:42 MCHC 32.2 g/dL (31.0-37.0) 01/23/19 08:42 RDW 13.6 % (11.5-15.5) 01/23/19 08:42 Plt Count 309 k/uL (150-450) 01/23/19 08:42 Neutrophils % 69 % 01/23/19 08:42 Lymphocytes % 20 % 01/23/19 08:42 Monocytes % 6 % 01/23/19 08:42 Eosinophils % 3 % 01/23/19 08:42 Basophils % 0 % 01/23/19 08:42 Neutrophils # 6.6 k/uL (1.3-7.7) 01/23/19 08:42 Lymphocytes # 1.9 k/uL (1.0-4.8) 01/23/19 08:42 Monocytes # 0.6 k/uL (0-1.0) 01/23/19 08:42 Eosinophils # 0.3 k/uL (0-0.7) 01/23/19 08:42 Basophils # 0.0 k/uL (0-0.2) 01/23/19 08:42 Sodium 141 mmol/L (137-145) 01/23/19 08:42 Potassium 4.6 mmol/L (3.5-5.1) 01/23/19 08:42 Chloride 115 mmol/L (98-107) H 01/23/19 08:42 Carbon Dioxide 17 mmol/L (22-30) L 01/23/19 08:42 Anion Gap 9 mmol/L 01/23/19 08:42 BUN 13 mg/dL (7-17) 01/23/19 08:42 Creatinine 0.61 mg/dL (0.52-1.04) 01/23/19 08:42 Est GFR (CKD-EPI)AfAm >90 (>60 ml/min/1.73 sqM) 01/23/19 08:42 Est GFR (CKD-EPI)NonAf >90 (>60 ml/min/1.73 sqM) 01/23/19 08:42 Glucose 121 mg/dL (74-99) H 01/23/19 08:42 POC Glucose (mg/dL) 183 mg/dL (75-99) H 01/23/19 20:40 POC Glu [employer] Inspector ID Mara Arevlao 01/23/19 20:40 Plasma Lactic Acid Joce 2.0 mmol/L (0.7-2.0) 01/22/19 16:28 Calcium 9.3 mg/dL (8.4-10.2) 01/23/19 08:42 Total Bilirubin 0.3 mg/dL (0.2-1.3) 01/23/19 08:42 AST 18 U/L (14-36) 01/23/19 08:42 ALT 27 U/L (9-52) 01/23/19 08:42 Alkaline Phosphatase 75 U/L (38-126) 01/23/19 08:42 Total Protein 6.5 g/dL (6.3-8.2) 01/23/19 08:42 Albumin 3.7 g/dL (3.5-5.0) 01/23/19 08:42 Lipase 60 U/L (23-300) 01/22/19 16:28 Urine Color Yellow 01/22/19 16:58 Urine Appearance Cloudy (Clear) H 01/22/19 16:58 Urine pH 7.0 (5.0-8.0) 01/22/19 16:58 Ur Specific [place] 1.022 (1.001-1.035) 01/22/19 16:58 Urine Protein Trace (Negative) H 01/22/19 16:58 Urine Glucose (UA) Negative (Negative) 01/22/19 16:58 Urine Ketones Negative (Negative) 01/22/19 16:58 Urine Blood Negative (Negative) 01/22/19 16:58 Urine Nitrite Negative (Negative) 01/22/19 16:58 Urine Bilirubin Negative (Negative) 01/22/19 16:58 Urine Urobilinogen <2.0 mg/dL (<2.0) 01/22/19 16:58 Ur Leukocyte Esterase Small (Negative) H 01/22/19 16:58 Urine WBC 29 /hpf (0-5) H 01/22/19 16:58 Ur Squamous Epith Cells 5 /hpf (0-4) H 01/22/19 16:58 Urine Mucus Rare /hpf (None) H 01/22/19 16:58 Influenza Type A RNA Not Detected (Not Detectd) 01/22/19 17:15 Influenza Type B (PCR) Not Detected (Not Detectd) 01/22/19 17:15 Microbiology 01/23/19 11:32 Urine,Voided Urine Culture - Preliminary Assessment and Plan (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 She has difficulties with gastroparesis and recurrent nausea and emesis. She's been followed by her primary care physician is receiving outpatient intravenous fluids twice per month to help her avoid dehydration which always worsens her cycle. Been doing relatively well until she had increasing weakness and thought to have a urinary infection. Antibiotic therapy with Rocephin has begun based on her prior cultures. Urinalysis is abnormal urine culture is pending. Urine culture will help direct the course of antibiotic therapy at the time of her discharge. For now continue IV fluids, advance diet as she tolerates. Pain control appears to be adequate. Influenza testing is negative. White count is normal and no evidence of any renal failure or extensive electrolyte abnormalities. Current Visit: Yes Status: Acute Code(s): N39.0 - URINARY TRACT INFECTION, SITE NOT SPECIFIED SNOMED Code(s): 29358185
[2019-01-24] MEDS: LEVOTHYROXINE 100 MCG TAB PO SCH (05:59)
[2019-01-24] MEDS: LEVOTHYROXINE 125 MCG TAB PO SCH (05:59)
[2019-01-24] MEDS: SODIUM CHLORIDE 0.9% 1,000 ML IV SCH (06:00)
[2019-01-24 07:20] LABS: Glucose,Whole Blood 102 mg/dL (75-99)
[2019-01-24] MEDS: INSULIN ASPART (NovoLOG) 100 UNIT/ML VIAL SQ SCH ×2 (07:23→12:19)
[2019-01-24] MEDS: GABAPENTIN 400 MG CAP PO SCH ×2 (08:11→15:43)
[2019-01-24] MEDS: FLUTICASONE 50MCG/SPRAY NASAL 16GM EA NOSTRIL SCH (08:11)
[2019-01-24] MEDS: LORATADINE 10 MG TAB PO SCH (08:12)
[2019-01-24] MEDS: TOPIRAMATE 25 MG TAB PO SCH (08:12)
[2019-01-24] MEDS: tiZANidine 4 MG TAB PO SCH (08:12)
[2019-01-24] MEDS: MAGNESIUM OXIDE 400 MG TAB PO SCH (08:12)
[2019-01-24] MEDS: MODAFINIL 200 MG TAB PO SCH (08:12)
[2019-01-24] MEDS: METOCLOPRAMIDE 10 MG TAB PO SCH ×2 (08:12→13:14)
[2019-01-24] MEDS: RIVAROXABAN 20 MG TAB PO SCH (08:12)
[2019-01-24] MEDS: VENLAFAXINE HCL ER 75 MG CAP PO SCH (08:12)
[2019-01-24] MEDS: LURASIDONE 20 MG TAB PO SCH (08:12)
[2019-01-24] MEDS: METOPROLOL SUCCINATE (ER) 100 MG TAB.ER.24H PO SCH (08:12)
[2019-01-24] MEDS: LOSARTAN 50 MG TAB PO SCH (08:12)
[2019-01-24] MEDS: PANTOPRAZOLE 40 MG TABLET PO SCH (08:12)
[2019-01-24] MEDS: FERROUS SULFATE 325 MG TAB PO SCH (08:12)
[2019-01-24] MEDS: CYANOCOBALAMIN 500 MCG TAB PO SCH (08:12)
[2019-01-24] MEDS: IBUPROFEN 400 MG TAB PO PRN (08:17)
[2019-01-24] MEDS: ONDANSETRON ODT 8 MG TAB.RAPDIS PO PRN (09:07)
[2019-01-24 12:15] LABS: Glucose,Whole Blood 120 mg/dL (75-99)
[2019-01-24 14:53] VITALS: BP 113/71; PULSE 79; RESP 20; TEMP 99.3
--- NOTE | 2019-01-25 13:10 | P.DS ---
Providers Date of admission: 01/24/19 11:46 Expected date of discharge: 01/24/19 Attending physician: Guzman Jarrell MD Consults: 01/23/19 10:01 Consult Physician Routine Consulting Provider: Last Shelby Consult Reason/Comments: recurrent utis, neurogenic bladder Do you want consulting provider notified?: Yes 01/23/19 10:02 Consult Physician Routine Consulting Provider: Jerson Hansen Consult Reason/Comments: neurogenic bladder, recurrent UTIs, eval for Abx prophylaxis Do you want consulting provider notified?: Yes Primary care physician: Fran Thompson - Discharge Diagnosis(es) (1) Sepsis Status: Acute (2) Urinary tract infection Status: Acute (3) Type 2 diabetes mellitus Status: Acute (4) History of DVT (deep vein thrombosis) Status: Chronic Hospital Course: The patient is a 38-year-old obese female with a past medical history of lupus-like syndrome progressive dysautonomia, mitochondrial syndrome which is a chronic progressive disease that presented with generalized weakness fatigue, subjective fevers And was admitted with sepsis presumably secondary to urinary tract infection, she was started on empiric IV on IV Rocephin, she was noted to have a low-grade fever at 100.1, blood and urine cultures were sent ultimately revealing no growth. Her leukocytosis resolved with treatment after presenting with a white count of 15.7. Given a history of repeated urinary tract infections neurology was consulted and Dr. Duke recommended methenamine 1 g BID as an antiseptic and recommended the patient follow-up in his office for possible cystoscopy. The patient was treated supportively with antiemetics, IV fluids and pain medication as needed. The patient's blood sugars remained relatively stable on her home insulin regimen of Lantus 35 units subcu daily at bedtime along with correctional scale coverage. She was subsequently discharged home in stable condition and instructed to follow-up with Dr. Shelby (see scheduled appointment) and her PCP. This discharge process took approximately 35 minutes Focused exam Abdomen: Soft nontender nondistended, normoactive bowel sounds normal 4 quadrants, no CVA tenderness Patient Condition at Discharge: Good Plan - Discharge Summary New Discharge Prescriptions: New Cefuroxime Axetil [Cefuroxime] 500 mg PO BID #14 tab Continue tiZANidine [Zanaflex] 8 mg PO HS Rivaroxaban [Xarelto] 20 mg PO DAILY Metoclopramide [Reglan] 10 mg PO QID Metoprolol Succinate (ER) [Toprol XL] 100 mg PO DAILY Ondansetron [Zofran ODT] 8 mg PO Q6H PRN PRN Reason: Nausea Butalb/APAP/Caff 50-325-40Mg [Fioricet 50-325-40] 1 tab PO Q8H PRN PRN Reason: Migraine Headache Modafinil [Provigil] 200 mg PO DAILY Fenofibrate 160 mg PO DAILY Cholecalciferol [Vitamin D3] 2,000 unit PO DAILY tab diphenhydrAMINE [Benadryl] 150 mg PO HS cap Meloxicam [Mobic] 15 mg PO DAILY Topiramate [Topamax] 75 mg PO BID Lurasidone [Latuda] 60 mg PO DAILY Gabapentin [Neurontin] 400 mg PO TID INSULIN ASPART (NovoLOG) [NovoLOG (formulary)] See Protocol SQ ACHS Insulin Glargine [Lantus] 35 unit SQ HS Losartan [Cozaar] 50 mg PO DAILY tiZANidine [Zanaflex] 4 mg PO BID Fluticasone Nasal [place] [Flonase Nasal [place]] 2 spr EA NOSTRIL DAILY Ferrous Sulfate [Iron (65 MG Elemental)] 325 mg PO DAILY Prochlorperazine Suppository [Compazine] 25 mg RECTAL Q8HR PRN PRN Reason: Nausea Loratadine 10 mg PO QAM Dexlansoprazole [Dexilant] 30 mg PO QAM Magnesium Oxide [Mag-Ox] 250 mg PO DAILY hydrOXYzine PAMOATE [Vistaril] 50 mg PO Q12HR PRN PRN Reason: Anxiety Melatonin 10 mg PO HS Venlafaxine HCl ER [Effexor XR] 225 mg PO DAILY Promethazine [Phenergan] 25 mg PO Q6HR PRN PRN Reason: Nausea Levothyroxine Sodium [Synthroid] 100 mcg PO DAILY Levothyroxine Sodium [Synthroid] 125 mcg PO DAILY Cyanocobalamin (Vitamin B-12) [Vitamin B-12] 2,000 mcg PO DAILY Discharge Medication List Rivaroxaban [Xarelto] 20 mg PO DAILY 03/09/17 [History] tiZANidine [Zanaflex] 8 mg PO HS 03/09/17 [History] Metoclopramide [Reglan] 10 mg PO QID 07/29/17 [History] Metoprolol Succinate (ER) [Toprol XL] 100 mg PO DAILY 10/24/17 [History] Ondansetron [Zofran ODT] 8 mg PO Q6H PRN 05/23/18 [History] Butalb/APAP/Caff 50-325-40Mg [Fioricet 50-325-40] 1 tab PO Q8H PRN 06/11/18 [History] Fenofibrate 160 mg PO DAILY 09/01/18 [History] Modafinil [Provigil] 200 mg PO DAILY 09/01/18 [History] Cholecalciferol [Vitamin D3] 2,000 unit PO DAILY tab 09/11/18 [Rx] diphenhydrAMINE [Benadryl] 150 mg PO HS cap 09/11/18 [Rx] Meloxicam [Mobic] 15 mg PO DAILY 09/15/18 [History] Topiramate [Topamax] 75 mg PO BID 10/17/18 [History] Gabapentin [Neurontin] 400 mg PO TID 11/15/18 [History] Lurasidone [Latuda] 60 mg PO DAILY 11/15/18 [History] Dexlansoprazole [Dexilant] 30 mg PO QAM 12/04/18 [History] Ferrous Sulfate [Iron (65 MG Elemental)] 325 mg PO DAILY 12/04/18 [History] Fluticasone Nasal [place] [Flonase Nasal [place]] 2 spr EA NOSTRIL DAILY 12/04/18 [History] INSULIN ASPART (NovoLOG) [NovoLOG (formulary)] See Protocol SQ ACHS 12/04/18 [History] Insulin Glargine [Lantus] 35 unit SQ HS 12/04/18 [History] Loratadine 10 mg PO QAM 12/04/18 [History] Losartan [Cozaar] 50 mg PO DAILY 12/04/18 [History] Magnesium Oxide [Mag-Ox] 250 mg PO DAILY 12/04/18 [History] Prochlorperazine Suppository [Compazine] 25 mg RECTAL Q8HR PRN 12/04/18 [History] tiZANidine [Zanaflex] 4 mg PO BID 12/04/18 [History] hydrOXYzine PAMOATE [Vistaril] 50 mg PO Q12HR PRN 12/05/18 [History] Melatonin 10 mg PO HS 12/19/18 [History] Levothyroxine Sodium [Synthroid] 100 mcg PO DAILY 01/16/19 [History] Promethazine [Phenergan] 25 mg PO Q6HR PRN 01/16/19 [History] Venlafaxine HCl ER [Effexor XR] 225 mg PO DAILY 01/16/19 [History] Cyanocobalamin (Vitamin B-12) [Vitamin B-12] 2,000 mcg PO DAILY 01/22/19 [History] Levothyroxine Sodium [Synthroid] 125 mcg PO DAILY 01/22/19 [History] Cefuroxime Axetil [Cefuroxime] 500 mg PO BID #14 tab 01/24/19 [Rx] Follow up Appointment(s)/Referral(s): Fran Thompson MD [Primary Care Provider] - 01/26/19 1:30 pm Last Shelby MD [STAFF PHYSICIAN] - 02/02/19 8:00 am (Dr Sutton) Patient Instructions/Handouts: Urinary Tract Infection in Women (DC) Activity/Diet/Wound Care/Special Instructions: activity as tolerated, uses wheelchair at home Discharge Disposition: HOME SELF-CARE
== END 2019-01-24 16:04 | disposition home or self-care (01) | DRG 872 ==
LOC: EC 15:15 → 4MS4W 22:07 → OBSVTOIN 01-24 11:46
PROVIDERS: ADMIT Internal Medicine; ATTEND Internal Medicine
DX: A41.9 Sepsis, unspecified organism (principal); Z68.41 Body mass index [BMI] 40.0-44.9, adult; N30.00 Acute cystitis without hematuria; E11.43 Type 2 diabetes mellitus with diabetic autonomic (poly)neuropathy; E28.2 Polycystic ovarian syndrome; E66.9 Obesity, unspecified; E86.0 Dehydration; F32.9 Major depressive disorder, single episode, unspecified; G47.419 Narcolepsy without cataplexy; G90.1 Familial dysautonomia [Riley-Day]; K31.84 Gastroparesis; N30.20 Other chronic cystitis without hematuria; N31.9 Neuromuscular dysfunction of bladder, unspecified; Z79.01 Long term (current) use of anticoagulants; Z79.1 Long term (current) use of non-steroidal anti-inflammatories (NSAID); Z79.4 Long term (current) use of insulin; Z79.890 Hormone replacement therapy; Z79.899 Other long term (current) drug therapy; Z82.49 Family history of ischemic heart disease and other diseases of the circulatory system; Z83.3 Family history of diabetes mellitus; Z86.718 Personal history of other venous thrombosis and embolism; Z86.73 Personal history of transient ischemic attack (TIA), and cerebral infarction without residual deficits; Z87.440 Personal history of urinary (tract) infections; Z99.3 Dependence on wheelchair; Z79.51 Long term (current) use of inhaled steroids; Z88.7 Allergy status to serum and vaccine; Z88.2 Allergy status to sulfonamides; Z88.8 Allergy status to other drugs, medicaments and biological substances; Z91.010 Allergy to peanuts
CPT/HCPCS: 36415; 74018; 74177; 80053; 81001; 83605; 83690; 85025; 87040; 87086; 87502; 93005; 96361; 96365; 99285

== ENCOUNTER 2019-02-01 08:26 | Day surgery (SDC) | payer MEDICARE, OTHER ==
[2019-02-01 09:18] VITALS: RESP 16; TEMP 99.5
[2019-02-01] MEDS ORDERED: LACTATED RINGERS 1,000 ML IV ONE (09:34)
[2019-02-01 09:39] LABS: Glucose,Whole Blood 150 mg/dL (75-99)
--- NOTE | 2019-02-01 10:18 | P.PCN ---
Date of Procedure: 02/01/19 Surgeon: Meme Slade Pathology: none sent Condition: stable Disposition: PACU Description of Procedure: Preoperative diagnoses= 1- Bilateral Greater occipital neuralgia. 2- cervicogenic headache Postoperative diagnoses= same as preoperative diagnosis. Procedure= Bilateral Greater occipital nerve block Anesthesia= moderate sedation with Versed 2 mg and fentanyl 100 micrograms . Estimated blood loss=minimal. Procedure indication= the patient had a history of severe chronic neck pain ,and headache, diagnosed with occipital neuralgia exam was positive for severe tenderness over the occipital nerve bilaterally, she will be a good candidate occipital nerve block, patient failed conservative management Procedure description= the patient was seen and identified in the preoperative holding area, risks and benefits and alternative of the procedure and possible complications discussed with the patient, and he agreed with the preceding, patient signed the consent, an IV was started, and vital signs were monitored and were stable throughout the procedure, patient was placed in the prone position and the neck area was prepped and draped in a sterile fashion, vital signs were closely monitored during the procedure, 25-gauge needle advanced 1 inch lateral to the occipital protuberance on the right side, at the location of the right occipital nerve , then after negative aspiration for heme and CSF and there was no paresthesia during the injection, 2.5 ml of Robivacaine 0.5% and 15 mg of Depo-Medrol injected after negative aspiration, the needle removed, and the entire same procedure was repeated for the left Greater occipital nerve. Patient tolerated the procedure well without any complication, The patient returned to supine position after the back was cleaned and a Band- Aid applied, the patient transported to recovery room in stable condition and he was monitored for 30 minutes before he was discharged home and then patient was reexamined before going home and patient was discharged in stable condition. Patient will follow up with the pain clinic in a few weeks.
[2019-02-01] MEDS ORDERED: IV FLUID CONTINUATION 1,000 ML IV ONE (10:27)
[2019-02-01 10:38] LABS: Glucose,Whole Blood 127 mg/dL (75-99)
[2019-02-01 10:45] VITALS: BP 102/70; PULSE 76
== END 2019-02-01 11:00 | disposition home or self-care (01) ==
LOC: ORPAIN 08:26
PROVIDERS: ATTEND Anesthesiology
DX: M54.81 Occipital neuralgia (principal); G89.29 Other chronic pain; Z88.2 Allergy status to sulfonamides; Z88.8 Allergy status to other drugs, medicaments and biological substances; Z88.1 Allergy status to other antibiotic agents; Z88.7 Allergy status to serum and vaccine; E66.01 Morbid (severe) obesity due to excess calories; Z68.41 Body mass index [BMI] 40.0-44.9, adult
CPT/HCPCS: 81025; 64405; J2250; J1030; J3010

== ENCOUNTER → 2019-02-09 | Outpatient (CLI) | payer MEDICARE, OTHER ==
[2019-02-09 13:47] LABS: Prothrombin Time 10.4 sec (9.0-12.0)
--- NOTE | 2019-02-09 14:10 | XR ---
EXAMINATION TYPE: XR chest 2V DATE OF EXAM: 02/09/2019 COMPARISON: Prior chest x-ray dated 07/17/2018 HISTORY: Port check TECHNIQUE: Frontal and lateral views of the chest are obtained. FINDINGS: Right-sided Port-A-Cath in the pectoral region again shows the catheter terminating over th e lower neck. There is no focal air space opacity, pleural effusion, or pneumothorax seen. The card iac silhouette size is within normal limits. The osseous structures are intact. IMPRESSION: No acute cardiopulmonary process. Port is in stable abnormal position.
[2019-02-09 19:44] LABS: Phosphorus 2.8 mg/dL (2.4-5.1)
== END | disposition home or self-care (01) ==
LOC: LABWHC1 12:15
PROVIDERS: ATTEND Nurse Practitioner Adult Health
DX: Z45.2 Encounter for adjustment and management of vascular access device (principal); E03.9 Hypothyroidism, unspecified; E55.9 Vitamin D deficiency, unspecified; E11.65 Type 2 diabetes mellitus with hyperglycemia; Z86.718 Personal history of other venous thrombosis and embolism
CPT/HCPCS: 36415; 71046; 82306; 83735; 84100; 85610

== ENCOUNTER 2019-02-15 19:37 | Emergency (ER) | payer MEDICARE, OTHER ==
[2019-02-15] MEDS ORDERED: diphenhydrAMINE 50 MG/ML 1 ML VIAL IVP STA (19:54)
[2019-02-15] MEDS ORDERED: SODIUM CHLORIDE 0.9% 1,000 ML IV ONE (19:54)
[2019-02-15] MEDS ORDERED: DEXAMETHASONE SOD PHOSPHATE 10 MG/ML 1 ML VIAL IV STA (19:54)
[2019-02-15] MEDS ORDERED: KETOROLAC 30 MG/ML 1 ML VIAL IVP STA (19:54)
[2019-02-15] MEDS ORDERED: METOCLOPRAMIDE 5 MG/ML 2 ML VIAL IVP STA (19:54)
--- NOTE | 2019-02-15 19:58 | ED ---
General Adult HPI - General Chief complaint: Headache Stated complaint: Headache fever Time Seen by Provider: 02/15/19 19:46 Source: patient Mode of arrival: wheelchair Limitations: no limitations - History of Present Illness Initial comments: Patient is a 38-year-old female who presents with a chief complaint of a headache. She states the onset was at 3 PM today. She was at a [employer] class when it happened. She states that the onset was abrupt. She has a history of headaches but states that normally she is sensitive to light and sound. Today she has not. She cannot identify an inciting incident. There are no aggravating or alleviating factors. Timing is constant. Patient normally gets around in a wheelchair. - Related Data Home Medications Medication Instructions Recorded Confirmed Rivaroxaban [Xarelto] 20 mg PO DAILY 03/09/17 02/15/19 tiZANidine [Zanaflex] 8 mg PO HS 03/09/17 02/15/19 Metoclopramide [Reglan] 10 mg PO QID 07/29/17 02/15/19 Metoprolol Succinate (ER) [Toprol 100 mg PO DAILY 10/24/17 02/15/19 XL] Ondansetron [Zofran ODT] 8 mg PO Q6H PRN 05/23/18 02/15/19 Butalb/APAP/Caff 50-325-40Mg 1 tab PO Q8H PRN 06/11/18 02/15/19 [Fioricet 50-325-40] Fenofibrate 160 mg PO DAILY 09/01/18 02/15/19 Modafinil [Provigil] 200 mg PO DAILY 09/01/18 02/15/19 Meloxicam [Mobic] 15 mg PO DAILY 09/15/18 02/15/19 Topiramate [Topamax] 75 mg PO BID 10/17/18 02/15/19 Gabapentin [Neurontin] 400 mg PO TID 11/15/18 02/15/19 Lurasidone [Latuda] 60 mg PO DAILY 11/15/18 02/15/19 Dexlansoprazole [Dexilant] 30 mg PO QAM 12/04/18 02/15/19 Ferrous Sulfate [Iron (65 MG 325 mg PO DAILY 12/04/18 02/15/19 Elemental)] Fluticasone Nasal [place] [Flonase 2 spr EA NOSTRIL DAILY 12/04/18 02/15/19 Nasal [place]] INSULIN ASPART (NovoLOG) [NovoLOG See Protocol SQ ACHS 12/04/18 02/15/19 (formulary)] Insulin Glargine [Lantus] 35 unit SQ HS 12/04/18 02/15/19 Loratadine 10 mg PO QAM 12/04/18 02/15/19 Losartan [Cozaar] 50 mg PO DAILY 12/04/18 02/15/19 Magnesium Oxide [Mag-Ox] 250 mg PO DAILY 12/04/18 02/15/19 Prochlorperazine Suppository 25 mg RECTAL Q8HR PRN 12/04/18 02/15/19 [Compazine] tiZANidine [Zanaflex] 4 mg PO BID 12/04/18 02/15/19 hydrOXYzine PAMOATE [Vistaril] 50 mg PO Q12HR PRN 12/05/18 02/15/19 Melatonin 10 mg PO HS 12/19/18 02/15/19 Levothyroxine Sodium [Synthroid] 100 mcg PO DAILY 01/16/19 02/15/19 Promethazine [Phenergan] 25 mg PO Q6HR PRN 01/16/19 02/15/19 Cyanocobalamin (Vitamin B-12) 2,000 mcg PO DAILY 01/22/19 02/15/19 [Vitamin B-12] Levothyroxine Sodium [Synthroid] 125 mcg PO DAILY 01/22/19 02/15/19 Venlafaxine HCl [Effexor XR] 225 mg PO DAILY 02/15/19 02/15/19 Previous Rx's Medication Instructions Recorded Cholecalciferol [Vitamin D3] 2,000 unit PO DAILY tab 09/11/18 diphenhydrAMINE [Benadryl] 150 mg PO HS cap 09/11/18 Methenamine Hippurate 1 gm PO AC-BID #60 tablet 01/25/19 Allergies Allergy/AdvReac Type Severity Reaction Status Date / Time barium sulfate Allergy Anaphylaxis Verified 02/15/19 19:58 diphtheria, pertussis, Allergy Unknown Verified 02/15/19 19:58 tetanus vacc doxepin [Doxepin] Allergy Anaphylaxis Verified 02/15/19 19:58 ephedrine Allergy Unknown Verified 02/15/19 19:58 ertapenem [From Invanz] Allergy Rash/Hives Verified 02/15/19 19:58 influenza virus vaccine, Allergy severe Verified 02/15/19 19:58 specific swelling [Influenza Virus and hives Vacc,Specific] peanut oil AdvReac Severe Nausea & Verified 02/15/19 19:58 Vomiting,itching doxycycline AdvReac Nausea & Verified 02/15/19 19:58 Vomiting & Diarrhea peanut AdvReac Nausea & Verified 02/15/19 19:58 Vomiting Pertussis Vaccines AdvReac fever/seizu Verified 02/15/19 19:58 re pseudoephedrine AdvReac Chest Pain Verified 02/15/19 19:58 pseudoephedrine HCl AdvReac Chest Pain Verified 02/15/19 19:58 [From Sudafed] sulfamethoxazole AdvReac Nausea & Verified 02/15/19 19:58 [From Bactrim] Vomiting trimethoprim [From Bactrim] AdvReac Nausea & Verified 02/15/19 19:58 Vomiting Review of Systems ROS Statement: Those systems with pertinent positive or pertinent negative responses have been documented in the HPI. ROS Other: All systems not noted in ROS Statement are negative. Constitutional: Reports: fever, chills Neurological: Reports: headache, weakness Past Medical History Past Medical History: Chest Pain / Angina, CVA/TIA, Diabetes Mellitus, Deep Vein Thrombosis (DVT), Neurologic Disorder, Syncope, Thyroid Disorder Additional Past Medical History / Comment(s): "STROKE LIKE EPISODE D/T MITOCHRONDIAL DISEASE HAD WORK UP DONE AT [facility]. WEARS A BRACE ON LT ANKLE AND LT WRIST".Dysautonomia-progressive neurological disorder, lupus/LUPUS ANTICOAGULANTS, 2004 CVA without residual, ana maria's disease, lymphedema Lt arm d/t DVTs , v-tach, pituitary microadenoma. "mitochondrial disease". patent foramen ovale, narcolepsy, gastropareis, IDDM type II, uti's, falls, orthostatic hypotension/syncope,migraines with hemiplegia, pernicious anemia, polycystic ovarian syndrome, neuropathy bilateral legs/fee-mild, uterine ablation August 2015/patient no longer has periods-had uterine ablation uti's., midline access for fluids-current access issues has contacted dr quigley. History of Any Multi-Drug Resistant Organisms: ESBL, MRSA Date of last positivie culture/infection: 03/09/17 MRSA/ 05/17/18 ESBL MDRO Source:: MRSA LEFT ARM,/ESBL URINE ECOLI Past Surgical History: Ablation, Uterine Ablation Additional Past Surgical History / Comment(s): colonscopy/egd, angie, stress test. PORT-A -CATH INSERTION 04-28-18 Past Anesthesia/Blood Transfusion Reactions: No Reported Reaction Additional Past Anesthesia/Blood Transfusion Reaction / Comment(s): patient states "It takes a lot of anesthesia for my body to react". Pt has received blood in past without reaction. Past Psychological History: Bipolar, Depression Smoking Status: Never smoker Past Alcohol Use History: None Reported Past Drug Use History: None Reported - Past Family History Brother(s) Family Medical History: Diabetes Mellitus, Hyperlipidemia, Hypertension Additional Family Medical History / Comment(s): Patient states she has 1 brother with no major medical problems. Father Family Medical History: Diabetes Mellitus, Hyperlipidemia, Hypertension Additional Family Medical History / Comment(s): DAD IS 70 YEARS OLD. Patient states she does not have any contact with her father and does not know his medical history. Mother Family Medical History: CVA/TIA, Deep Vein Thrombosis (DVT) Additional Family Medical History / Comment(s): antiphospholipid antibody syndrome General Exam Limitations: no limitations General appearance: alert, in no apparent distress Head exam: Present: atraumatic, normocephalic Eye exam: Present: normal appearance, PERRL, EOMI. Absent: scleral icterus, conjunctival injection, nystagmus Pupils: Present: normal accommodation ENT exam: Present: normal exam Neck exam: Present: normal inspection, tenderness, full ROM. Absent: meningismus, lymphadenopathy Respiratory exam: Present: normal lung sounds bilaterally. Absent: respiratory distress, wheezes Cardiovascular Exam: Present: normal rhythm, tachycardia. Absent: bradycardia GI/Abdominal exam: Present: soft. Absent: distended, tenderness Rectal exam: Present: deferred Extremities exam: Present: normal inspection Back exam: Present: normal inspection Neurological exam: Present: alert, oriented X3 Psychiatric exam: Present: normal affect, normal mood Skin exam: Present: warm, dry, intact Course Vital Signs 02/15/19 02/15/19 19:39 22:13 Temperature 99.3 F Pulse Rate 115 H 86 Respiratory 20 18 Rate Blood Pressure 136/78 119/90 O2 Sat by Pulse 98 97 Oximetry Medical Decision Making - Medical Decision Making Patient presents with chief complaint of headache. Initial evaluation, vital signs stable that she is mildly tachycardic. She is in no acute distress. Patient states that her headache onset was at 3 PM, this is within the 6 hour window. I doubt intracranial hemorrhage however given patient is on Xarelto and her headache is different, she'll be sent for computed tomography scan of the head without contrast. Patient given a headache cocktail. She'll be evaluated with basic labs including a urinalysis. 10:45 PM Lab evaluationshows hyperglycemia but is otherwise unremarkable. There is no evidence of urinary tract infection. Computed tomography scan of the head is unremarkable. On reevaluation, the patient states that her headache persists however she is keenly awake and alert, neurologically intact. Neuro exam is unchanged. Patient given a dose of oxycodone, this time there does not appear to be any life-threatening etiology of the patient's symptoms. She is stable for discharge home and is agreeable. He is instructed to follow up with primary care in 1-2 days, return to the ED if symptoms worsen or change. - Lab Data Result diagrams: 02/15/19 21:17 02/15/19 21:17 Lab Results 02/15/19 02/15/19 02/15/19 Range/Units 20:50 21:17 21:17 WBC 8.9 (3.8-10.6) k/uL RBC 3.89 (3.80-5.40) m/uL Hgb 10.9 L (11.4-16.0) gm/dL Hct 33.7 L (34.0-46.0) % MCV 86.6 (80.0-100.0) fL MCH 28.0 (25.0-35.0) pg MCHC 32.4 (31.0-37.0) g/dL RDW 13.7 (11.5-15.5) % Plt Count 325 (150-450) k/uL Neutrophils % 72 % Lymphocytes % 19 % Monocytes % 5 % Eosinophils % 4 % Basophils % 0 % Neutrophils # 6.3 (1.3-7.7) k/uL Lymphocytes # 1.7 (1.0-4.8) k/uL Monocytes # 0.4 (0-1.0) k/uL Eosinophils # 0.3 (0-0.7) k/uL Basophils # 0.0 (0-0.2) k/uL Sodium 140 (137-145) mmol/L Potassium 4.9 (3.5-5.1) mmol/L Chloride 112 H (98-107) mmol/L Carbon Dioxide 19 L (22-30) mmol/L Anion Gap 9 mmol/L BUN 18 H (7-17) mg/dL Creatinine 0.91 (0.52-1.04) mg/dL Est GFR (CKD-EPI)AfAm >90 (>60 ml/min/1.73 sqM) Est GFR (CKD-EPI)NonAf 81 (>60 ml/min/1.73 sqM) Glucose 227 H (74-99) mg/dL Calcium 9.0 (8.4-10.2) mg/dL HCG, Qual Not Detected Urine Color Yellow Urine Appearance Clear (Clear) Urine pH 6.5 (5.0-8.0) Ur Specific [place] 1.023 (1.001-1.035) Urine Protein Trace H (Negative) Urine Glucose (UA) Negative (Negative) Urine Ketones Trace H (Negative) Urine Blood Negative (Negative) Urine Nitrite Negative (Negative) Urine Bilirubin Negative (Negative) Urine Urobilinogen <2.0 (<2.0) mg/dL Ur Leukocyte Esterase Negative (Negative) Disposition Clinical Impression: Headache Disposition: HOME SELF-CARE Condition: Good Instructions (If sedation given, give patient instructions): Acute Headache (ED) Is patient prescribed a controlled substance at d/c from ED?: No Referrals: Fran Thompson MD [Primary Care Provider] - 1-2 days
[2019-02-15 20:59] LABS: Appearance,Urine Clear (Clear); Bilirubin,Urine Negative (Negative); Blood,Urine Negative (Negative); Color,Urine Yellow; Glucose,Urine (UA) Negative (Negative); Ketones,Urine Trace (Negative); Leukocyte Esterase,Urine Negative (Negative); Nitrite,Urine Negative (Negative); PH, Urine 6.5 (5.0-8.0); Protein,Urine Trace (Negative); Specific Gravity,Urine 1.023 (1.001-1.035); Urobilinogen,Urine <2.0 mg/dL (<2.0)
--- NOTE | 2019-02-15 21:20 | CT ---
EXAMINATION TYPE: CT brain wo con DATE OF EXAM: 02/15/2019 COMPARISON: 02/14/2018 HISTORY: Headache today. CT DLP: 1129.4 mGycm. Automated Exposure Control for Dose Reduction was Utilized. TECHNIQUE: CT scan of the head is performed without contrast. FINDINGS: Ventricles and sulci appear normal. There is no mass effect nor midline shift. There is n o sign of intracranial hemorrhage. The calvarium is intact. IMPRESSION: Normal head CT scan. No change.
[2019-02-15 21:52] LABS: HCT 33.7 % (34.0-46.0); HGB 10.9 gm/dL (11.4-16.0); MCV 86.6 fL (80.0-100.0); RBC 3.89 m/uL (3.80-5.40); WBC 8.9 k/uL (3.8-10.6)
[2019-02-15 21:53] LABS: Basophils % (A) 0 %; Eosinophils # (A) 0.3 k/uL (0-0.7); Eosinophils % (A) 4 %; Lymphocytes # (A) 1.7 k/uL (1.0-4.8); Lymphocytes % (A) 19 %; MCHC 32.4 g/dL (31.0-37.0); Mean Platelet Volume 6.7; Monocytes # (A) 0.4 k/uL (0-1.0); Monocytes % (A) 5 %; Neutrophils # (A) 6.3 k/uL (1.3-7.7); Neutrophils % (A) 72 %; Platelet Count 325 k/uL (150-450); RDW 13.7 % (11.5-15.5)
[2019-02-15 21:57] LABS: HCG,Qualitative Serum Not Detected
[2019-02-15 22:03] LABS: Anion Gap 9 mmol/L; Blood Urea Nitrogen 18 mg/dL (7-17); Carbon Dioxide 19 mmol/L (22-30); Chloride 112 mmol/L (98-107); Glucose 227 mg/dL (74-99); Potassium 4.9 mmol/L (3.5-5.1); Sodium 140 mmol/L (137-145)
[2019-02-15 22:14] VITALS: RESP 18
[2019-02-15 23:09] VITALS: BP 129/82; PULSE 89; TEMP 98.3
== END 2019-02-15 23:07 | disposition home or self-care (01) ==
LOC: EC 19:37
DX: R51 Headache (principal); R50.9 Fever, unspecified; R00.0 Tachycardia, unspecified; E11.40 Type 2 diabetes mellitus with diabetic neuropathy, unspecified; D64.9 Anemia, unspecified; M32.9 Systemic lupus erythematosus, unspecified; E06.3 Autoimmune thyroiditis; F31.9 Bipolar disorder, unspecified; Z86.73 Personal history of transient ischemic attack (TIA), and cerebral infarction without residual deficits; Z86.718 Personal history of other venous thrombosis and embolism; Z86.14 Personal history of Methicillin resistant Staphylococcus aureus infection; Z79.01 Long term (current) use of anticoagulants; Z79.1 Long term (current) use of non-steroidal anti-inflammatories (NSAID); Z79.4 Long term (current) use of insulin; Z79.890 Hormone replacement therapy; Z79.899 Other long term (current) drug therapy; Z88.7 Allergy status to serum and vaccine; Z88.8 Allergy status to other drugs, medicaments and biological substances; Z88.0 Allergy status to penicillin; Z91.010 Allergy to peanuts; Z88.2 Allergy status to sulfonamides; Z88.1 Allergy status to other antibiotic agents
CPT/HCPCS: 36415; 80048; 85025; 81003; 84703; 70450; 99284; 96374; 96375 ×3; 96361; J1200; J1100; J2765; J1885

== ENCOUNTER → 2019-02-21 | Outpatient (CLI) | payer MEDICARE, OTHER ==
[2019-02-21 11:08] VITALS: BP 139/93; PULSE 105; RESP 18
--- NOTE | 2019-02-21 11:30 | P.PAINPG ---
Subjective Progress Note Date: 02/21/19 Francisca is a 38-year-old female presents today for follow-up. Francisca is a very complicated medical history. She presents today with a chief complaint of head pain and back pain. She is most concerned regarding her headaches. She reports his headaches start at the back of her neck and extend to the top of her head to behind her eyeballs on both sides. She reports that the pain is associated with any movement and is relieved with recumbency. She reports that she does not have any phonophobia or photophobia. She denies any nausea or vomiting associated with the headaches. She feels that her pain was significantly improved after having neck supple nerve block for a total of 2 weeks she reports she did not have any headaches during that time but now the pain is coming back. She is interested in repeating the injections and inquiring about further long- term relief. To refresh she is a young lady with a history of mitochondrial disease medical comorbidities. She does not walk very far baseline. She and blades for about 10 feet at most. Objective - Vital Signs Vital signs: Vital Signs Temp Pulse 105 H 02/21/19 10:58 Resp 18 02/21/19 10:58 BP 139/93 02/21/19 10:58 Pulse Ox 98 02/21/19 10:58 Intake & Output 02/20/19 02/21/19 02/21/19 18:59 06:59 18:59 Weight 108.862 kg - Exam PHYSICAL EXAM: Constitutional: Awake and alert no distress, obese, wheelchair Cardiovascular exam: Regular rate, no lower extremity edema, palpable pulses bilaterally Respiratory exam: No audible wheezing, no accessory muscle usage Abdominal exam: Soft nontender, obese Muscular skeletal exam: - Cervical spine: Nontender to palpation bilaterally. Range of motion is slightly limited. Spurling is negative bilateral. Facet loading is negative bilaterally. Tenderness to palpation over the posterior occiput - Lumbar spine: Preserved lumbar lordosis. No changes in skin. Nontender palpation bilateral. Patient has limited range of motion in flexion and extension as well as lateral sidebending. Seated Straight leg raise is negative. Neuro exam: Normal sensation bilateral upper and lower extremities. Deep tendon reflexes are 2+ bilaterally. Reyna's is negative Psychiatric exam: Cooperative, good insight Assessment and Plan Assessment: #1 occipital neuralgia #2 mitochondrial disease #3 diabetes Plan: After long discussion with Francisca regarding her overall medical care. I advised her that repeating these injections is not recommended a long-term basis. Discussed with her the risks and benefits of using steroid injections over the long period. Also had a long discussion with her regarding diet and potentially decreasing her weight to improve her overall health. After long discussion she would like to move forward with a second occipital nerve block and potentially try to have pulsed radiofrequency of the occipital nerve. I did advise that I do not believe adding any other medications to her regimen at this time would be beneficial to her and will most likely result in medication reaction or interaction with all of her other medications. PQRS Measure Charge Sheet Measure #130: Documentation of Current Meds in Medical Chart: Patient's medications documented in chart Measure #226: Tobacco Use: Screen & Cessation Intervention: Pt not a tobacco user Measure #111: Pneumonia Vaccination: Pneumococcal vaccine NOT administered or previously given Measure #47: Advance Care Plan: Advance care planning discussed & documented, plan or surrogate given Measure #412: Opioid Treatment Agreement: No documentation of signed opioid treatment agreement Measure #317: Preventitive Care & Scrn High Bld Press & F/U: Normal blood pressure, f/u not required Measure #128: Body Mass Index (BMI) Screening & Follow-up: BMI documented ABOVE normal parameters - f/u documented Measure #131: Pain Assessment & Follow-up: Pain positive & plan documented, Follow-up scheduled Measure #431: Unhealthy Alcohol Use Preventative Care & Scrn: Patient not identified as an unhealthy alcohol user PQRS Narrative: Smoking Status Never smoker Do You Want the Pneumonia Vaccine Up to Date Vaccine AT THIS TIME? Blood Pressure 139/93 Pain Intensity [Generalized] 5 Scale Used Numeric (1 - 10) Home Medications: Ambulatory Orders Rivaroxaban [Xarelto] 20 mg PO DAILY 03/09/17 tiZANidine [Zanaflex] 8 mg PO HS 03/09/17 Metoclopramide [Reglan] 10 mg PO QID 07/29/17 Metoprolol Succinate (ER) [Toprol XL] 100 mg PO DAILY 10/24/17 Ondansetron [Zofran ODT] 8 mg PO Q6H PRN 05/23/18 Butalb/APAP/Caff 50-325-40Mg [Fioricet 50-325-40] 1 tab PO Q8H PRN 06/11/18 Fenofibrate 160 mg PO DAILY 09/01/18 Modafinil [Provigil] 200 mg PO DAILY 09/01/18 Cholecalciferol [Vitamin D3] 2,000 unit PO DAILY tab 09/11/18 diphenhydrAMINE [Benadryl] 150 mg PO HS cap 09/11/18 Meloxicam [Mobic] 15 mg PO DAILY 09/15/18 Topiramate [Topamax] 75 mg PO BID 10/17/18 Gabapentin [Neurontin] 400 mg PO TID 11/15/18 Lurasidone [Latuda] 60 mg PO DAILY 11/15/18 Dexlansoprazole [Dexilant] 30 mg PO QAM 12/04/18 Ferrous Sulfate [Iron (65 MG Elemental)] 325 mg PO DAILY 12/04/18 Fluticasone Nasal [place] [Flonase Nasal [place]] 2 spr EA NOSTRIL DAILY 12/04/18 INSULIN ASPART (NovoLOG) [NovoLOG (formulary)] See Protocol SQ ACHS 12/04/18 Insulin Glargine [Lantus] 35 unit SQ HS 12/04/18 Loratadine 10 mg PO QAM 12/04/18 Losartan [Cozaar] 50 mg PO DAILY 12/04/18 Magnesium Oxide [Mag-Ox] 250 mg PO DAILY 12/04/18 Prochlorperazine Suppository [Compazine] 25 mg RECTAL Q8HR PRN 12/04/18 tiZANidine [Zanaflex] 4 mg PO BID 12/04/18 hydrOXYzine PAMOATE [Vistaril] 50 mg PO Q12HR PRN 12/05/18 Melatonin 10 mg PO HS 12/19/18 Levothyroxine Sodium [Synthroid] 100 mcg PO DAILY 01/16/19 Promethazine [Phenergan] 25 mg PO Q6HR PRN 01/16/19 Cyanocobalamin (Vitamin B-12) [Vitamin B-12] 2,000 mcg PO DAILY 01/22/19 Levothyroxine Sodium [Synthroid] 125 mcg PO DAILY 01/22/19 Methenamine Hippurate 1 gm PO AC-BID #60 tablet 01/25/19 Venlafaxine HCl [Effexor XR] 225 mg PO DAILY 02/15/19 Controlled Substance Measures - Controlled Substance Measures Is patient prescribed a controlled substance at discharge?: No
== END ==
LOC: PNWHC3 10:43
PROVIDERS: ATTEND Hospitalist
DX: M54.81 Occipital neuralgia (principal); E88.40 Mitochondrial metabolism disorder, unspecified; E11.9 Type 2 diabetes mellitus without complications; Z79.899 Other long term (current) drug therapy; Z79.01 Long term (current) use of anticoagulants; Z79.1 Long term (current) use of non-steroidal anti-inflammatories (NSAID); Z79.4 Long term (current) use of insulin
CPT/HCPCS: 99211

== ENCOUNTER 2019-03-01 00:21 | Inpatient (IN) | payer MEDICARE, MEDICAID ==
[2019-03-01] MEDS ORDERED: LORazepam 2 MG/ML INJ IM STA (00:46)
[2019-03-01] MEDS ORDERED: ZIPRASIDONE 20 MG VIAL IM STA (00:47)
--- NOTE | 2019-03-01 01:03 | ED ---
Psych HPI - General Chief Complaint: Psychiatric Symptoms Stated Complaint: Mental Health Time Seen by Provider: 03/01/19 00:45 Source: patient Mode of arrival: ambulatory - History of Present Illness Initial Comments: This patient is 38-year-old woman with history of previous psychiatric care, who is brought in by police to have psychiatric evaluation. The patient does admit to stating that she had wanted to take an overdose of pills. She admits to being more depressed than usual recently. The patient states that she has not actually acted on this. She denies any somatic symptoms. MD Complaint: suicidal ideation, feels depressed -: days(s) Associated Psychiatric Symptoms: depression, suicidal ideation History of same: Yes Quality: getting worse Improves With: none Worsens With: none Associated Symptoms: denies other symptoms - Related Data Home Medications Medication Instructions Recorded Confirmed Rivaroxaban [Xarelto] 20 mg PO DAILY 03/09/17 02/21/19 tiZANidine [Zanaflex] 8 mg PO HS 03/09/17 02/21/19 Metoclopramide [Reglan] 10 mg PO QID 07/29/17 02/21/19 Metoprolol Succinate (ER) [Toprol 100 mg PO DAILY 10/24/17 02/21/19 XL] Ondansetron [Zofran ODT] 8 mg PO Q6H PRN 05/23/18 02/21/19 Butalb/APAP/Caff 50-325-40Mg 1 tab PO Q8H PRN 06/11/18 02/21/19 [Fioricet 50-325-40] Fenofibrate 160 mg PO DAILY 09/01/18 02/21/19 Modafinil [Provigil] 200 mg PO DAILY 09/01/18 02/21/19 Meloxicam [Mobic] 15 mg PO DAILY 09/15/18 02/21/19 Topiramate [Topamax] 75 mg PO BID 10/17/18 02/21/19 Gabapentin [Neurontin] 400 mg PO TID 11/15/18 02/21/19 Lurasidone [Latuda] 60 mg PO DAILY 11/15/18 02/21/19 Dexlansoprazole [Dexilant] 30 mg PO QAM 12/04/18 02/21/19 Ferrous Sulfate [Iron (65 MG 325 mg PO DAILY 12/04/18 02/21/19 Elemental)] Fluticasone Nasal [place] [Flonase 2 spr EA NOSTRIL DAILY 12/04/18 02/21/19 Nasal [place]] INSULIN ASPART (NovoLOG) [NovoLOG See Protocol SQ ACHS 12/04/18 02/21/19 (formulary)] Insulin Glargine [Lantus] 35 unit SQ HS 12/04/18 02/21/19 Loratadine 10 mg PO QAM 12/04/18 02/21/19 Losartan [Cozaar] 50 mg PO DAILY 12/04/18 02/21/19 Magnesium Oxide [Mag-Ox] 250 mg PO DAILY 12/04/18 02/21/19 Prochlorperazine Suppository 25 mg RECTAL Q8HR PRN 12/04/18 02/21/19 [Compazine] tiZANidine [Zanaflex] 4 mg PO BID 12/04/18 02/21/19 hydrOXYzine PAMOATE [Vistaril] 50 mg PO Q12HR PRN 12/05/18 02/21/19 Melatonin 10 mg PO HS 12/19/18 02/21/19 Levothyroxine Sodium [Synthroid] 100 mcg PO DAILY 01/16/19 02/21/19 Promethazine [Phenergan] 25 mg PO Q6HR PRN 01/16/19 02/21/19 Cyanocobalamin (Vitamin B-12) 2,000 mcg PO DAILY 01/22/19 02/21/19 [Vitamin B-12] Levothyroxine Sodium [Synthroid] 125 mcg PO DAILY 01/22/19 02/21/19 Venlafaxine HCl [Effexor XR] 225 mg PO DAILY 02/15/19 02/21/19 Previous Rx's Medication Instructions Recorded Cholecalciferol [Vitamin D3] 2,000 unit PO DAILY tab 09/11/18 diphenhydrAMINE [Benadryl] 150 mg PO HS cap 09/11/18 Methenamine Hippurate 1 gm PO AC-BID #60 tablet 01/25/19 Allergies Allergy/AdvReac Type Severity Reaction Status Date / Time barium sulfate Allergy Anaphylaxis Verified 02/21/19 10:56 diphtheria, pertussis, Allergy Unknown Verified 02/21/19 10:56 tetanus vacc doxepin [Doxepin] Allergy Anaphylaxis Verified 02/21/19 10:56 ephedrine Allergy Unknown Verified 02/21/19 10:56 ertapenem [From Invanz] Allergy Rash/Hives Verified 02/21/19 10:56 influenza virus vaccine, Allergy severe Verified 02/21/19 10:56 specific swelling [Influenza Virus and hives Vacc,Specific] peanut oil AdvReac Severe Nausea & Verified 02/21/19 10:56 Vomiting,itching doxycycline AdvReac Nausea & Verified 02/21/19 10:56 Vomiting & Diarrhea peanut AdvReac Nausea & Verified 02/21/19 10:56 Vomiting Pertussis Vaccines AdvReac fever/seizu Verified 02/21/19 10:56 re pseudoephedrine AdvReac Chest Pain Verified 02/21/19 10:56 pseudoephedrine HCl AdvReac Chest Pain Verified 02/21/19 10:56 [From Sudafed] sulfamethoxazole AdvReac Nausea & Verified 02/21/19 10:56 [From Bactrim] Vomiting trimethoprim [From Bactrim] AdvReac Nausea & Verified 02/21/19 10:56 Vomiting Review of Systems ROS Statement: Those systems with pertinent positive or pertinent negative responses have been documented in the HPI. ROS Other: All systems not noted in ROS Statement are negative. Constitutional: Denies: fever Eyes: Denies: vision change Respiratory: Denies: cough, dyspnea Cardiovascular: Denies: chest pain, palpitations Gastrointestinal: Denies: abdominal pain, vomiting, diarrhea Genitourinary: Denies: dysuria, hematuria Musculoskeletal: Denies: back pain Neurological: Denies: headache Psychiatric: Reports: depression, suicidal thoughts. Denies: auditory hallucinations, visual hallucinations, homicidal thoughts Past Medical History Past Medical History: Chest Pain / Angina, CVA/TIA, Diabetes Mellitus, Deep Vein Thrombosis (DVT), Neurologic Disorder, Syncope, Thyroid Disorder Additional Past Medical History / Comment(s): "STROKE LIKE EPISODE D/T MITOCHRONDIAL DISEASE HAD WORK UP DONE AT [facility]. WEARS A BRACE ON LT ANKLE AND LT WRIST".Dysautonomia-progressive neurological disorder, lupus/LUPUS ANTICOAGULANTS, 2003 CVA without residual, ana maria's disease, lymphedema Lt arm d/t DVTs , v-tach, pituitary microadenoma. "mitochondrial disease". patent foramen ovale, narcolepsy, gastropareis, IDDM type II, uti's, falls, orthostatic hypotension/syncope,migraines with hemiplegia, pernicious anemia, polycystic ovarian syndrome, neuropathy bilateral legs/fee-mild, uterine ablation August 2015/patient no longer has periods-had uterine ablation uti's., midline access for fluids-current access issues has contacted dr quigley. Autism History of Any Multi-Drug Resistant Organisms: ESBL, MRSA Date of last positivie culture/infection: 03/09/17 MRSA/ 05/17/18 ESBL MDRO Source:: MRSA LEFT ARM,/ESBL URINE ECOLI Past Surgical History: Ablation, Uterine Ablation Additional Past Surgical History / Comment(s): colonscopy/egd, angie, stress test. PORT-A -CATH INSERTION 04-28-18 Past Anesthesia/Blood Transfusion Reactions: No Reported Reaction Additional Past Anesthesia/Blood Transfusion Reaction / Comment(s): patient states "It takes a lot of anesthesia for my body to react". Pt has received blood in past without reaction. Past Psychological History: Bipolar, Depression Smoking Status: Never smoker Past Alcohol Use History: None Reported Past Drug Use History: None Reported - Past Family History Brother(s) Family Medical History: Diabetes Mellitus, Hyperlipidemia, Hypertension Additional Family Medical History / Comment(s): Patient states she has 1 brother with no major medical problems. Father Family Medical History: Diabetes Mellitus, Hyperlipidemia, Hypertension Additional Family Medical History / Comment(s): DAD IS 70 YEARS OLD. Patient states she does not have any contact with her father and does not know his medical history. Mother Family Medical History: CVA/TIA, Deep Vein Thrombosis (DVT) Additional Family Medical History / Comment(s): antiphospholipid antibody syndrome General Exam Limitations: no limitations General appearance: alert, in no apparent distress Head exam: Present: atraumatic, normocephalic Eye exam: Present: normal appearance. Absent: scleral icterus, nystagmus ENT exam: Present: normal oropharynx Respiratory exam: Present: normal lung sounds bilaterally. Absent: respiratory distress, wheezes, rales, rhonchi, stridor Cardiovascular Exam: Present: regular rate, normal rhythm, normal heart sounds. Absent: systolic murmur, diastolic murmur, rubs, gallop GI/Abdominal exam: Present: soft. Absent: distended, tenderness, guarding, rebound, rigid, mass Extremities exam: Present: normal inspection, normal capillary refill Back exam: Present: normal inspection Neurological exam: Present: alert Psychiatric exam: Present: depressed, flat affect, suicidal ideation. Absent: agitated, anxious, manic, homicidal ideation Skin exam: Present: warm, dry, intact, normal color. Absent: rash Course Vital Signs 03/01/19 00:31 Temperature 98.7 F Pulse Rate 113 H Respiratory 20 Rate Blood Pressure 118/90 O2 Sat by Pulse 98 Oximetry Disposition Referrals: Fran Thompson MD [Primary Care Provider] - 1-2 days
[2019-03-01 02:02] LABS: Appearance,Urine Clear (Clear); Bilirubin,Urine Negative (Negative); Blood,Urine Negative (Negative); Color,Urine Yellow; Glucose,Urine (UA) Negative (Negative); Ketones,Urine Negative (Negative); Leukocyte Esterase,Urine Negative (Negative); Nitrite,Urine Negative (Negative); PH, Urine 5.5 (5.0-8.0); Protein,Urine Negative (Negative); Specific Gravity,Urine 1.017 (1.001-1.035); Urobilinogen,Urine <2.0 mg/dL (<2.0)
[2019-03-01 02:16] LABS: Amphetamine Screen,Urine Not Detected (NotDetected); Barbiturate Screen,Urine Detected (NotDetected); Benzodiazepines Screen,Urine Not Detected (NotDetected); Cocaine Screen,Urine Not Detected (NotDetected); Methadone Screen, Urine Not Detected (NotDetected); Opiate Screen,Urine Not Detected (NotDetected); Oxycodone Screen, Urine Not Detected (NotDetected); Phencyclidine Screen,Urine Not Detected (NotDetected); Tricyclic Antidepressant,Urine Not Detected (NotDetected); Urn Cannabinoid Scrn Not Detected (NotDetected)
[2019-03-01 03:01] LABS: Basophils # (A) 0.1 k/uL (0-0.2); Basophils % (A) 1 %; Eosinophils # (A) 0.2 k/uL (0-0.7); Eosinophils % (A) 2 %; HCT 38.7 % (34.0-46.0); HGB 12.1 gm/dL (11.4-16.0); Hypochromasia Moderate; Lymphocytes # (A) 2.4 k/uL (1.0-4.8); Lymphocytes % (A) 22 %; MCH 28.9 pg (25.0-35.0); MCHC 31.1 g/dL (31.0-37.0); Mean Platelet Volume 7.1; Monocytes # (A) 0.6 k/uL (0-1.0); Monocytes % (A) 5 %; Neutrophils # (A) 7.3 k/uL (1.3-7.7); Neutrophils % (A) 68 %; Platelet Count 390 k/uL (150-450); RBC 4.18 m/uL (3.80-5.40); RDW 14.3 % (11.5-15.5); WBC 10.8 k/uL (3.8-10.6)
[2019-03-01 03:02] LABS: MCV 92.7 fL (80.0-100.0)
[2019-03-01 03:12] LABS: ALT 28 U/L (9-52); AST 25 U/L (14-36); Albumin 4.1 g/dL (3.5-5.0); Alkaline Phosphatase 90 U/L (38-126); Anion Gap 14 mmol/L; Blood Urea Nitrogen 17 mg/dL (7-17); Calcium 9.9 mg/dL (8.4-10.2); Carbon Dioxide 19 mmol/L (22-30); Chloride 105 mmol/L (98-107); Glucose 248 mg/dL (74-99); Potassium 4.4 mmol/L (3.5-5.1); Sodium 138 mmol/L (137-145); Total Bilirubin 0.4 mg/dL (0.2-1.3); Total Protein 6.9 g/dL (6.3-8.2)
[2019-03-01] MEDS ORDERED: ACETAMINOPHEN TAB 325 MG TAB PO PRN (14:19)
[2019-03-01] MEDS ORDERED: MAGNESIUM HYDROXIDE 2,400 MG/10 ML CUP PO PRN (14:19)
[2019-03-01] MEDS ORDERED: MAG HYDROX/AL HYDROX/SIMETH 30 ML CUP PO PRN (14:19)
[2019-03-01] MEDS ORDERED: LIDOCAINE 4% CREAM 5 GM TUBE TOPICAL PRN (14:26)
[2019-03-01 15:52] LABS: Glucose,Whole Blood 173 mg/dL (75-99)
[2019-03-01] MEDS: LEVOTHYROXINE 100 MCG TAB PO SCH (15:54)
[2019-03-01] MEDS: FLUTICASONE 50MCG/SPRAY NASAL 16GM EA NOSTRIL SCH (15:54)
[2019-03-01] MEDS: LEVOTHYROXINE 125 MCG TAB PO SCH (15:54)
[2019-03-01] MEDS: FENOFIBRATE 160 MG TAB PO SCH (15:54)
[2019-03-01] MEDS: METOPROLOL SUCCINATE (ER) 100 MG TAB.ER.24H PO SCH (15:57)
[2019-03-01] MEDS: GABAPENTIN 400 MG CAP PO SCH ×2 (15:57→20:59)
[2019-03-01] MEDS: CYANOCOBALAMIN 500 MCG TAB PO SCH (17:28)
[2019-03-01] MEDS: FERROUS SULFATE 325 MG TAB PO SCH (17:28)
[2019-03-01] MEDS: METOCLOPRAMIDE 10 MG TAB PO SCH ×2 (17:30→20:58)
[2019-03-01] MEDS: tiZANidine 4 MG TAB PO SCH ×3 (17:31→20:58)
[2019-03-01 17:32] LABS: Glucose,Whole Blood 170 mg/dL (75-99)
[2019-03-01] MEDS: METHENAMINE HIPPURATE 1 GM PO SCH (17:32)
[2019-03-01] MEDS: INSULIN ASPART (NovoLOG) 100 UNIT/ML VIAL SQ SCH ×2 (17:52→20:44)
--- NOTE | 2019-03-01 18:50 | P.HPMEDMHU ---
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 She was subsequently admitted to the mental health unit. Patient seen and examined. She states that she is taking all of her medications as prescribed by her depression has been getting more severe and she has thought about an overdose. She denies any unusual cough, cold, fever, flu, nausea, or vomiting. She does report increased fatigue and sleeping. She states her neurologic disorder is at baseline. She no longer follows with [facility] she has no way to get down there but takes her muscle relaxers for the spasms. At home she can walk about 15-20 feet independently while holding onto furniture but uses a wheelchair when outside of the house he rated she states her sugars have been poorly controlled at home for the last week up to the 400s and she has not found a definitive reason. She denies dietary changes or missing doses of her medications. She otherwise feels as though she is in her chronic state of health. She developed a blister on her outer right foot that has since popped and she is now covering it with a Band-Aid. Review of Systems Pertinent positives and negatives as discussed in HPI, a complete review of systems was performed and all other systems are negative. Past Medical History Past Medical History: Chest Pain / Angina, CVA/TIA, Diabetes Mellitus, Deep Vein Thrombosis (DVT), Neurologic Disorder, Syncope, Thyroid Disorder Additional Past Medical History / Comment(s): STROKE LIKE EPISODE D/T MITOCHRONDIAL DISEASE HAD WORK UP DONE AT [facility]. Dysautonomia-progressive neurological disorder, lupus/LUPUS ANTICOAGULANTS, ana maria's disease, lymphedema Lt arm d/t DVTs , v-tach, pituitary microadenoma. patent foramen ovale, narcolepsy, gastropareis, IDDM type II, falls, orthostatic hypotension/syncope, migraines with hemiplegia, pernicious anemia, polycystic ovarian syndrome, neuropathy bilateral legs/fee-mild, uti's. History of Any Multi-Drug Resistant Organisms: ESBL, MRSA Date of last positivie culture/infection: 03/09/17 MRSA/ 05/17/18 ESBL MDRO Source:: MRSA LEFT ARM,/ESBL URINE ECOLI Past Surgical History: Ablation, Uterine Ablation Additional Past Surgical History / Comment(s): colonscopy/egd, angie, PORT-A -CATH INSERTION 04-28-18 Past Anesthesia/Blood Transfusion Reactions: No Reported Reaction Additional Past Anesthesia/Blood Transfusion Reaction / Comment(s): patient states "It takes a lot of anesthesia for my body to react". Pt has received blood in past without reaction. Past Psychological History: Bipolar, Depression Smoking Status: Never smoker Past Alcohol Use History: None Reported Past Drug Use History: None Reported Additional History: Lives with her mother, uses a wheelchair outside the house - Past Family History Brother(s) Family Medical History: Diabetes Mellitus, Hyperlipidemia, Hypertension Additional Family Medical History / Comment(s): Patient states she has 1 brother with no major medical problems. Father Family Medical History: Diabetes Mellitus, Hyperlipidemia, Hypertension Additional Family Medical History / Comment(s): DAD IS 70 YEARS OLD. Patient states she does not have any contact with her father and does not know his medical history. Mother Family Medical History: CVA/TIA, Deep Vein Thrombosis (DVT) Additional Family Medical History / Comment(s): antiphospholipid antibody syndro me Medications and Allergies Home Medications Medication Instructions Recorded Confirmed Type Rivaroxaban [Xarelto] 20 mg PO HS 03/09/17 03/01/19 History tiZANidine [Zanaflex] 8 mg PO HS 03/09/17 03/01/19 History Metoclopramide [Reglan] 10 mg PO ACHS 07/29/17 03/01/19 History Metoprolol Succinate (ER) [Toprol 100 mg PO DAILY 10/24/17 03/01/19 History XL] Ondansetron [Zofran ODT] 8 mg PO Q6H PRN 05/23/18 03/01/19 History Butalb/APAP/Caff 50-325-40Mg 1 tab PO Q8H PRN 06/11/18 03/01/19 History [Fioricet 50-325-40] Fenofibrate 160 mg PO DAILY 09/01/18 03/01/19 History Modafinil [Provigil] 200 mg PO DAILY 09/01/18 03/01/19 History Gabapentin [Neurontin] 400 mg PO TID 11/15/18 03/01/19 History Lurasidone [Latuda] 60 mg PO DAILY 11/15/18 03/01/19 History Dexlansoprazole [Dexilant] 30 mg PO QAM 12/04/18 03/01/19 History Ferrous Sulfate [Iron (65 MG 325 mg PO DAILY 12/04/18 03/01/19 History Elemental)] Fluticasone Nasal [place] [Flonase 1 spray EA NOSTRIL DAILY 12/04/18 03/01/19 History Nasal [place]] INSULIN ASPART (NovoLOG) [NovoLOG See Protocol SQ ACHS 12/04/18 03/01/19 History (formulary)] Insulin Glargine [Lantus] 35 unit SQ HS 12/04/18 03/01/19 History Loratadine 10 mg PO QAM 12/04/18 03/01/19 History Losartan [Cozaar] 50 mg PO DAILY 12/04/18 03/01/19 History Prochlorperazine Suppository 25 mg RECTAL Q8HR PRN 12/04/18 03/01/19 History [Compazine] tiZANidine [Zanaflex] 4 mg PO AC-BID 12/04/18 03/01/19 History Levothyroxine Sodium [Synthroid] 100 mcg PO DAILY 01/16/19 03/01/19 History Promethazine [Phenergan] 25 mg PO Q6HR PRN 01/16/19 03/01/19 History Cyanocobalamin (Vitamin B-12) 2,000 mcg PO DAILY 01/22/19 03/01/19 History [Vitamin B-12] Levothyroxine Sodium [Synthroid] 125 mcg PO DAILY 01/22/19 03/01/19 History Methenamine Hippurate 1 gm PO AC-BID #60 tablet 01/25/19 03/01/19 Rx Lidocaine 4% Cream [Lmx 4] 1 applic TOPICAL TID PRN 03/01/19 03/01/19 History Meloxicam [Mobic] 15 mg PO DAILY 03/01/19 03/01/19 History Topiramate 50 mg PO BID 03/01/19 03/01/19 History Topiramate [Topamax] 25 mg PO BID 03/01/19 03/01/19 History Venlafaxine HCl [Effexor XR] 150 mg PO DAILY 03/01/19 03/01/19 History diphenhydrAMINE [Benadryl] 75 mg PO HS PRN 03/01/19 03/01/19 History Allergies Allergy/AdvReac Type Severity Reaction Status Date / Time barium sulfate Allergy Anaphylaxis Verified 03/01/19 09:08 diphtheria, pertussis, Allergy Unknown Verified 03/01/19 09:08 tetanus vacc doxepin [Doxepin] Allergy Anaphylaxis Verified 03/01/19 09:08 ephedrine Allergy Unknown Verified 03/01/19 09:08 ertapenem [From Invanz] Allergy Rash/Hives Verified 03/01/19 09:08 influenza virus vaccine, Allergy severe Verified 03/01/19 09:08 specific swelling [Influenza Virus and hives Vacc,Specific] peanut oil AdvReac Severe Nausea & Verified 03/01/19 09:08 Vomiting,itching doxycycline AdvReac Nausea & Verified 03/01/19 09:08 Vomiting & Diarrhea peanut AdvReac Nausea & Verified 03/01/19 09:08 Vomiting Pertussis Vaccines AdvReac fever/seizu Verified 03/01/19 09:08 re pseudoephedrine AdvReac Chest Pain Verified 03/01/19 09:08 pseudoephedrine HCl AdvReac Chest Pain Verified 03/01/19 09:08 [From Sudafed] sulfamethoxazole AdvReac Nausea & Verified 03/01/19 09:08 [From Bactrim] Vomiting trimethoprim [From Bactrim] AdvReac Nausea & Verified 03/01/19 09:08 Vomiting Physical Exam Osteopathic Statement: *. No significant issues noted on an osteopathic structural exam other than those noted in the History and Physical/Consult. Vitals: Vital Signs Temp Pulse Pulse Resp BP BP Pulse Ox 03/01/19 16:38 99.4 F 122 H 16 143/103 03/01/19 14:08 98.8 F 110 H 18 116/70 96 03/01/19 06:26 98.7 F 100 16 122/86 95 03/01/19 00:31 98.7 F 113 H 20 118/90 98 Intake and Output 03/01/19 03/01/19 03/01/19 06:59 14:59 22:59 Other: Weight 108.862 kg 108.1 kg General: non toxic, no distress, appears at stated age, Obese Derm: area of skin sloughing right lateral foot no unusual ecchymoses, warm, dry Head: atraumatic, normocephalic, symmetric Eyes: EOMI, no lid lag, anicteric sclera, pupils equal round reactive to light ENT: Nose and ears atraumatic, no thrush, no pharyngeal erythema Neck: No thyromegaly, no cervical lymphadenopathy, trachea midline, supple Mouth: no lip lesion, mucus membranes moist Cardiovascular: S1S2 reg, no murmur, positive posterior tibial pulse bilateral, no edema, capillary refill less than 2 seconds Lungs: CTA bilateral, no rhonchi, no rales , no accessory muscle use Abdominal: soft, nontender to palpation, no guarding, no appreciable organomegaly, normal bowel sounds Ext: no gross muscle atrophy, muscle strength 5 out of 5 in all 4 extremities grossly, + inward deviation of feet and ankles, Neuro: CN II-XI grossly intact, light touch intact all 4 extremities, but decreased on lower extremities, finger to nose poor on left, Psych: Alert, oriented, flat affect Cranial Nerve Examination - Cranial Nerves Cranial Nerve II- Optic: Intact Cranial Nerve III- Oculomotor: Intact Cranial Nerve IV- Trochlear: Intact Cranial Nerve V- Trigeminal: Intact Cranial Nerve - Abducens: Intact Cranial Nerve VII- Facial: Intact Cranial Nerve VIII- Auditory: Intact Cranial Nerve IX- Glossopharyngeal: Intact Cranial Nerve X- Vagus: Intact Cranial Nerve XI- Accessory: Intact Cranial Nerve XII- Hypoglossal: Intact Results CBC & Chem 7: 03/01/19 02:30 03/01/19 02:30 Labs: Abnormal Lab Results - Last 24 Hours (Table) 03/01/19 03/01/19 03/01/19 Range/Units 01:50 02:30 02:30 WBC 10.8 H (3.8-10.6) k/uL Carbon Dioxide 19 L (22-30) mmol/L Glucose 248 H (74-99) mg/dL POC Glucose (mg/dL) (75-99) mg/dL Ur Barbiturates Screen Detected H (NotDetected) 03/01/19 03/01/19 Range/Units 15:50 17:27 WBC (3.8-10.6) k/uL Carbon Dioxide (22-30) mmol/L Glucose (74-99) mg/dL POC Glucose (mg/dL) 173 H 170 H (75-99) mg/dL Ur Barbiturates Screen (NotDetected) Thrombosis Risk Factor Assmnt - DVT/VTE Prophylaxis DVT/VTE Prophylaxis: Pharmacologic Prophylaxis ordered Assessment and Plan Assessment: DM 2, insulin requiring with hyperglycemia at home with gastroparesis and neuropathy - SSI and Levemir - follow BS - A1C 7.3 12/12/18 will not recheck - neurontin Hypothyroidism - TSH 12/12/18 0.01 recheck ordered 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 Shelby. Depression with sucidial ideation - your psych management Chronic: Chest pain orthostatic hypotension Lupus like syndrome Thank you for allowing us to participate in the care of this patient. We will follow peripherally. Do not hesitate to contact us with questions. Someone can be reached from the [facility] hospitalist group at all hours of the day at [phone].
[2019-03-01 20:17] LABS: Glucose,Whole Blood 229 mg/dL (75-99)
[2019-03-01] MEDS: INSULIN DETEMIR (LEVEMIR) 100 UNIT/ML SYR SQ SCH (20:43)
[2019-03-01] MEDS: RIVAROXABAN 20 MG TAB PO SCH (20:58)
[2019-03-01] MEDS: diphenhydrAMINE 25 MG CAP PO PRN (21:01)
[2019-03-02] MEDS: LEVOTHYROXINE 125 MCG TAB PO SCH (06:18)
[2019-03-02] MEDS: LEVOTHYROXINE 100 MCG TAB PO SCH (06:18)
[2019-03-02 06:57] LABS: Glucose,Whole Blood 137 mg/dL (75-99)
[2019-03-02] MEDS: LORATADINE 10 MG TAB PO SCH (08:23)
[2019-03-02] MEDS: PANTOPRAZOLE 40 MG TABLET PO SCH (08:23)
[2019-03-02] MEDS: LOSARTAN 50 MG TAB PO SCH (08:23)
[2019-03-02] MEDS: GABAPENTIN 400 MG CAP PO SCH ×3 (08:23→21:27)
[2019-03-02] MEDS: MELOXICAM 7.5 MG TAB PO SCH (08:23)
[2019-03-02] MEDS: METOPROLOL SUCCINATE (ER) 100 MG TAB.ER.24H PO SCH (08:23)
[2019-03-02] MEDS: METOCLOPRAMIDE 10 MG TAB PO SCH ×4 (08:23→21:24)
[2019-03-02] MEDS: tiZANidine 4 MG TAB PO SCH ×4 (08:26→21:25)
[2019-03-02] MEDS: INSULIN ASPART (NovoLOG) 100 UNIT/ML VIAL SQ SCH ×5 (08:27→21:42)
[2019-03-02] MEDS: FERROUS SULFATE 325 MG TAB PO SCH (08:34)
[2019-03-02] MEDS: FENOFIBRATE 160 MG TAB PO SCH (08:34)
[2019-03-02] MEDS: FLUTICASONE 50MCG/SPRAY NASAL 16GM EA NOSTRIL SCH (08:35)
[2019-03-02] MEDS: METHENAMINE HIPPURATE 1 GM PO SCH ×2 (08:40→17:34)
[2019-03-02 10:22] LABS: Albumin 4.7 g/dL (3.5-5.0); Bilirubin, Delta 0.3 mg/dL (0.0-0.2); Bilirubin,Unconjugated 0.1 mg/dL (0.0-1.1); Total Bilirubin 0.4 mg/dL (0.2-1.3); Total Protein 7.4 g/dL (6.3-8.2)
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
[2019-03-02 11:24] LABS: T4, Free (Free Thyroxine) 1.38 ng/dL (0.78-2.19)
[2019-03-02 12:55] LABS: Glucose,Whole Blood 182 mg/dL (75-99)
[2019-03-02] MEDS: CYANOCOBALAMIN 500 MCG TAB PO SCH (13:06)
[2019-03-02 17:30] LABS: Glucose,Whole Blood 197 mg/dL (75-99)
[2019-03-02 20:08] LABS: Glucose,Whole Blood 202 mg/dL (75-99)
[2019-03-02] MEDS: INSULIN DETEMIR (LEVEMIR) 100 UNIT/ML SYR SQ SCH ×2 (21:22→21:39)
[2019-03-02] MEDS: RIVAROXABAN 20 MG TAB PO SCH (21:24)
[2019-03-02] MEDS: TOPIRAMATE 25 MG TAB PO SCH ×2 (21:25→21:27)
[2019-03-02] MEDS: diphenhydrAMINE 25 MG CAP PO PRN (22:47)
[2019-03-03] MEDS: LEVOTHYROXINE 125 MCG TAB PO SCH (06:17)
[2019-03-03] MEDS: LEVOTHYROXINE 100 MCG TAB PO SCH (06:17)
[2019-03-03 06:33] LABS: Glucose,Whole Blood 123 mg/dL (75-99)
[2019-03-03] MEDS: INSULIN ASPART (NovoLOG) 100 UNIT/ML VIAL SQ SCH ×4 (08:27→20:56)
[2019-03-03] MEDS: PANTOPRAZOLE 40 MG TABLET PO SCH (08:27)
[2019-03-03] MEDS: METOCLOPRAMIDE 10 MG TAB PO SCH ×4 (08:27→21:01)
[2019-03-03] MEDS: METHENAMINE HIPPURATE 1 GM PO SCH ×2 (08:27→17:48)
[2019-03-03] MEDS: FLUTICASONE 50MCG/SPRAY NASAL 16GM EA NOSTRIL SCH (08:28)
[2019-03-03] MEDS: FERROUS SULFATE 325 MG TAB PO SCH (08:28)
[2019-03-03] MEDS: tiZANidine 4 MG TAB PO SCH ×4 (08:28→21:01)
[2019-03-03] MEDS: GABAPENTIN 400 MG CAP PO SCH ×3 (08:28→21:04)
[2019-03-03] MEDS: LOSARTAN 50 MG TAB PO SCH (08:28)
[2019-03-03] MEDS: LORATADINE 10 MG TAB PO SCH (08:28)
[2019-03-03] MEDS: FENOFIBRATE 160 MG TAB PO SCH (08:28)
[2019-03-03] MEDS: MELOXICAM 7.5 MG TAB PO SCH (08:29)
[2019-03-03] MEDS: VENLAFAXINE HCL ER 75 MG CAP PO SCH (08:29)
[2019-03-03] MEDS: TOPIRAMATE 25 MG TAB PO SCH ×4 (08:29→21:04)
[2019-03-03] MEDS: METOPROLOL SUCCINATE (ER) 100 MG TAB.ER.24H PO SCH (08:29)
[2019-03-03] MEDS: MODAFINIL 200 MG TAB PO SCH (08:31)
[2019-03-03 12:36] LABS: Glucose,Whole Blood 148 mg/dL (75-99)
[2019-03-03] MEDS: CYANOCOBALAMIN 500 MCG TAB PO SCH (12:36)
--- NOTE | 2019-03-03 16:51 | P.PN ---
Progress Note - Text Progress Note Date: 03/03/19 Interval history: Patient reports that she is having a difficulty with depression and level of anxiety. She states she had a nightmare last night about past trauma and that was perhaps a trigger for her day-to-day. She states that she was taken off her Latuda, which she didn't feel was giving her any benefit. She does describe some ongoing thoughts of suicide. Mental status exam: She is alert and cooperative with the interview. Speech is fluent, not rapid or pressured. Thought processes organized. Her mood is depressed. She admits to some ongoing thoughts of suicide but reports she is able to be safe here in the hospital. She does not show any agitation. She does not appear to be showing active symptoms of psychosis. Plan: Patient will be maintained on current psychotropic medication regimen. We'll continue to monitor for any medication side effects and monitor her ongoin g response to treatment.
[2019-03-03 17:42] LABS: Glucose,Whole Blood 160 mg/dL (75-99)
[2019-03-03] MEDS: ONDANSETRON ODT 8 MG TAB.RAPDIS PO PRN (19:01)
[2019-03-03 20:13] LABS: Glucose,Whole Blood 172 mg/dL (75-99)
[2019-03-03] MEDS: INSULIN DETEMIR (LEVEMIR) 100 UNIT/ML SYR SQ SCH (20:56)
[2019-03-03] MEDS: RIVAROXABAN 20 MG TAB PO SCH (21:01)
[2019-03-03] MEDS: diphenhydrAMINE 25 MG CAP PO PRN (21:04)
[2019-03-03] MEDS: LORazepam 1 MG TAB PO PRN (21:04)
[2019-03-04] MEDS: LEVOTHYROXINE 100 MCG TAB PO SCH (06:31)
[2019-03-04] MEDS: LEVOTHYROXINE 125 MCG TAB PO SCH (06:31)
[2019-03-04 06:50] LABS: Glucose,Whole Blood 125 mg/dL (75-99)
[2019-03-04] MEDS: INSULIN ASPART (NovoLOG) 100 UNIT/ML VIAL SQ SCH ×4 (07:55→21:16)
[2019-03-04] MEDS: METHENAMINE HIPPURATE 1 GM PO SCH ×2 (08:33→16:47)
[2019-03-04] MEDS: MELOXICAM 7.5 MG TAB PO SCH (08:34)
[2019-03-04] MEDS: FENOFIBRATE 160 MG TAB PO SCH (08:34)
[2019-03-04] MEDS: VENLAFAXINE HCL ER 75 MG CAP PO SCH (08:34)
[2019-03-04] MEDS: LORATADINE 10 MG TAB PO SCH (08:34)
[2019-03-04] MEDS: FERROUS SULFATE 325 MG TAB PO SCH (08:34)
[2019-03-04] MEDS: METOPROLOL SUCCINATE (ER) 100 MG TAB.ER.24H PO SCH (08:34)
[2019-03-04] MEDS: PANTOPRAZOLE 40 MG TABLET PO SCH (08:35)
[2019-03-04] MEDS: TOPIRAMATE 25 MG TAB PO SCH ×4 (08:35→21:14)
[2019-03-04] MEDS: LOSARTAN 50 MG TAB PO SCH (08:35)
[2019-03-04] MEDS: MODAFINIL 200 MG TAB PO SCH (08:35)
[2019-03-04] MEDS: METOCLOPRAMIDE 10 MG TAB PO SCH ×4 (08:36→21:13)
[2019-03-04] MEDS: GABAPENTIN 400 MG CAP PO SCH ×3 (08:36→21:13)
[2019-03-04] MEDS: tiZANidine 4 MG TAB PO SCH ×3 (08:47→21:13)
[2019-03-04] MEDS: FLUTICASONE 50MCG/SPRAY NASAL 16GM EA NOSTRIL SCH (09:15)
[2019-03-04] MEDS: LORazepam 1 MG TAB PO PRN ×2 (10:35→21:15)
[2019-03-04] MEDS: CYANOCOBALAMIN 500 MCG TAB PO SCH (12:20)
[2019-03-04 12:37] LABS: Glucose,Whole Blood 159 mg/dL (75-99)
[2019-03-04 17:26] LABS: Glucose,Whole Blood 135 mg/dL (75-99)
--- NOTE | 2019-03-04 18:04 | P.PN ---
Progress Note - Text Progress Note Date: 03/04/19 Interval history: Patient reports that she is feeling about the same. She states that she dug her fingernail into her leg yesterday and it sounds like also earlier today. She reports that she continues to have thoughts of suicide. We talked about her going to staff if she is having difficulty. She verbalizes today that she feels like she is having more mood swings off of Latuda. She also feels like perhaps Latuda wasn't working well enough because she ended up in the hospital. Mental status exam: She is alert and cooperative with the interview. Her mood is depressed. She admits to some ongoing thoughts of suicide. We did talk about her going to staff if she was struggling. She does not verbalize any thoughts of harm to others. She does not show any active evidence of psychosis. She does not show any agitation. Plan: We will continue to monitor regarding any thoughts of suicide. We discussed her going to staff if she is struggling. Continue to monitor for any medication side effects. She will discuss with Dr. Al tomorrow regarding any new medication interventions.
[2019-03-04 20:07] LABS: Glucose,Whole Blood 191 mg/dL (75-99)
[2019-03-04] MEDS: RIVAROXABAN 20 MG TAB PO SCH (21:13)
[2019-03-04] MEDS: diphenhydrAMINE 25 MG CAP PO PRN (21:15)
[2019-03-04] MEDS: INSULIN DETEMIR (LEVEMIR) 100 UNIT/ML SYR SQ SCH (21:16)
[2019-03-05] MEDS: LORazepam 1 MG TAB PO PRN ×2 (04:11→12:19)
[2019-03-05] MEDS: LEVOTHYROXINE 125 MCG TAB PO SCH (06:06)
[2019-03-05] MEDS: LEVOTHYROXINE 100 MCG TAB PO SCH (06:06)
[2019-03-05 06:24] LABS: Glucose,Whole Blood 125 mg/dL (75-99)
[2019-03-05] MEDS: INSULIN ASPART (NovoLOG) 100 UNIT/ML VIAL SQ SCH ×4 (07:57→20:34)
[2019-03-05] MEDS: METHENAMINE HIPPURATE 1 GM PO SCH ×2 (08:00→17:31)
[2019-03-05] MEDS: METOCLOPRAMIDE 10 MG TAB PO SCH ×4 (08:00→20:43)
[2019-03-05] MEDS: PANTOPRAZOLE 40 MG TABLET PO SCH (08:00)
[2019-03-05] MEDS: tiZANidine 4 MG TAB PO SCH ×3 (08:01→20:43)
[2019-03-05] MEDS: FENOFIBRATE 160 MG TAB PO SCH (08:01)
[2019-03-05] MEDS: FERROUS SULFATE 325 MG TAB PO SCH (08:01)
[2019-03-05] MEDS: GABAPENTIN 400 MG CAP PO SCH ×3 (08:01→20:44)
[2019-03-05] MEDS: FLUTICASONE 50MCG/SPRAY NASAL 16GM EA NOSTRIL SCH (08:01)
[2019-03-05] MEDS: LOSARTAN 50 MG TAB PO SCH (08:02)
[2019-03-05] MEDS: LORATADINE 10 MG TAB PO SCH (08:02)
[2019-03-05] MEDS: MODAFINIL 200 MG TAB PO SCH (08:02)
[2019-03-05] MEDS: METOPROLOL SUCCINATE (ER) 100 MG TAB.ER.24H PO SCH (08:02)
[2019-03-05] MEDS: TOPIRAMATE 25 MG TAB PO SCH ×2 (08:03→08:05)
[2019-03-05] MEDS: MELOXICAM 7.5 MG TAB PO SCH (08:05)
[2019-03-05] MEDS: VENLAFAXINE HCL ER 75 MG CAP PO SCH (08:05)
[2019-03-05] MEDS ORDERED: BACITRACIN OINT 1 EACH PACKET TOPICAL ONE (08:41)
[2019-03-05] MEDS: ONDANSETRON ODT 8 MG TAB.RAPDIS PO PRN ×2 (10:49→21:52)
[2019-03-05 12:43] LABS: Glucose,Whole Blood 130 mg/dL (75-99)
[2019-03-05] MEDS: CYANOCOBALAMIN 500 MCG TAB PO SCH (12:46)
[2019-03-05] MEDS ORDERED: VENLAFAXINE HCL ER 150 MG CAP PO STA (14:05)
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
[2019-03-05 17:22] LABS: Glucose,Whole Blood 221 mg/dL (75-99)
[2019-03-05 20:07] LABS: Glucose,Whole Blood 228 mg/dL (75-99)
[2019-03-05] MEDS: INSULIN DETEMIR (LEVEMIR) 100 UNIT/ML SYR SQ SCH (20:39)
[2019-03-05] MEDS: RIVAROXABAN 20 MG TAB PO SCH (20:43)
[2019-03-05] MEDS: clonazePAM 0.5 MG TAB PO SCH (20:43)
[2019-03-05] MEDS: TOPIRAMATE 100 MG TAB PO SCH (20:44)
[2019-03-05] MEDS: diphenhydrAMINE 25 MG CAP PO PRN (20:44)
[2019-03-05] MEDS ORDERED: risperiDONE 0.5 MG TAB PO SCH (21:00)
[2019-03-05] MEDS ORDERED: VENLAFAXINE HCL ER 150 MG CAP PO SCH (21:00)
[2019-03-06] MEDS: LEVOTHYROXINE 100 MCG TAB PO SCH (06:25)
[2019-03-06] MEDS: LEVOTHYROXINE 125 MCG TAB PO SCH (06:25)
[2019-03-06 06:46] LABS: Glucose,Whole Blood 122 mg/dL (75-99)
[2019-03-06] MEDS: INSULIN ASPART (NovoLOG) 100 UNIT/ML VIAL SQ SCH ×4 (07:52→20:54)
[2019-03-06] MEDS: METHENAMINE HIPPURATE 1 GM PO SCH ×2 (07:53→17:29)
[2019-03-06] MEDS: METOCLOPRAMIDE 10 MG TAB PO SCH ×4 (07:53→20:49)
[2019-03-06] MEDS: PANTOPRAZOLE 40 MG TABLET PO SCH (07:54)
[2019-03-06] MEDS: tiZANidine 4 MG TAB PO SCH ×3 (07:55→20:49)
[2019-03-06] MEDS: clonazePAM 0.5 MG TAB PO SCH (07:55)
[2019-03-06] MEDS: FLUTICASONE 50MCG/SPRAY NASAL 16GM EA NOSTRIL SCH (07:55)
[2019-03-06] MEDS: FERROUS SULFATE 325 MG TAB PO SCH (07:55)
[2019-03-06] MEDS: GABAPENTIN 400 MG CAP PO SCH ×3 (07:55→20:50)
[2019-03-06] MEDS: LOSARTAN 50 MG TAB PO SCH (07:56)
[2019-03-06] MEDS: LORATADINE 10 MG TAB PO SCH (07:56)
[2019-03-06] MEDS: MODAFINIL 200 MG TAB PO SCH (07:57)
[2019-03-06] MEDS: METOPROLOL SUCCINATE (ER) 100 MG TAB.ER.24H PO SCH (07:57)
[2019-03-06] MEDS: TOPIRAMATE 100 MG TAB PO SCH ×2 (07:58→20:49)
[2019-03-06] MEDS: MELOXICAM 7.5 MG TAB PO SCH (07:59)
[2019-03-06] MEDS: FENOFIBRATE 160 MG TAB PO SCH (08:00)
[2019-03-06 12:24] LABS: Glucose,Whole Blood 119 mg/dL (75-99)
[2019-03-06] MEDS: CYANOCOBALAMIN 500 MCG TAB PO SCH (12:28)
[2019-03-06] MEDS: ONDANSETRON ODT 8 MG TAB.RAPDIS PO PRN (13:52)
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
[2019-03-06 17:23] LABS: Glucose,Whole Blood 165 mg/dL (75-99)
[2019-03-06 20:08] LABS: Glucose,Whole Blood 212 mg/dL (75-99)
[2019-03-06] MEDS: RIVAROXABAN 20 MG TAB PO SCH (20:50)
[2019-03-06] MEDS: INSULIN DETEMIR (LEVEMIR) 100 UNIT/ML SYR SQ SCH (20:50)
[2019-03-06] MEDS: BACITRACIN 500 UNIT/GM OINT 28.4 GM TUBE TOPICAL SCH (20:50)
[2019-03-06] MEDS: cloNIDine HCL 0.1 MG TAB PO SCH (20:50)
[2019-03-06] MEDS ORDERED: risperiDONE 1 MG TAB PO SCH (21:00)
[2019-03-07 06:48] LABS: Glucose,Whole Blood 118 mg/dL (75-99)
[2019-03-07] MEDS: LEVOTHYROXINE 100 MCG TAB PO SCH (06:48)
[2019-03-07] MEDS: LEVOTHYROXINE 125 MCG TAB PO SCH (06:48)
[2019-03-07 07:08] VITALS: BP 106/59; PULSE 101; RESP 16; TEMP 98.8
[2019-03-07] MEDS: METHENAMINE HIPPURATE 1 GM PO SCH (08:06)
[2019-03-07] MEDS: tiZANidine 4 MG TAB PO SCH ×3 (08:08→12:14)
[2019-03-07] MEDS: METOPROLOL SUCCINATE (ER) 100 MG TAB.ER.24H PO SCH (08:08)
[2019-03-07] MEDS: FENOFIBRATE 160 MG TAB PO SCH (08:08)
[2019-03-07] MEDS: METOCLOPRAMIDE 10 MG TAB PO SCH ×2 (08:08→12:14)
[2019-03-07] MEDS: TOPIRAMATE 100 MG TAB PO SCH (08:09)
[2019-03-07] MEDS: GABAPENTIN 400 MG CAP PO SCH (08:10)
[2019-03-07] MEDS: MELOXICAM 7.5 MG TAB PO SCH (08:10)
[2019-03-07] MEDS: MODAFINIL 200 MG TAB PO SCH (08:11)
[2019-03-07] MEDS: LOSARTAN 50 MG TAB PO SCH (08:12)
[2019-03-07] MEDS: FERROUS SULFATE 325 MG TAB PO SCH (08:12)
[2019-03-07] MEDS: LORATADINE 10 MG TAB PO SCH (08:12)
[2019-03-07] MEDS: cloNIDine HCL 0.1 MG TAB PO SCH (08:12)
[2019-03-07] MEDS ORDERED: VENLAFAXINE HCL ER 150 MG CAP PO SCH (09:00)
[2019-03-07] MEDS: PANTOPRAZOLE 40 MG TABLET PO SCH (10:17)
[2019-03-07] MEDS: FLUTICASONE 50MCG/SPRAY NASAL 16GM EA NOSTRIL SCH (10:18)
[2019-03-07] MEDS: BACITRACIN 500 UNIT/GM OINT 28.4 GM TUBE TOPICAL SCH (10:18)
[2019-03-07] MEDS: INSULIN ASPART (NovoLOG) 100 UNIT/ML VIAL SQ SCH ×2 (10:19→13:15)
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
[2019-03-07 12:14] LABS: Glucose,Whole Blood 161 mg/dL (75-99)
[2019-03-07] MEDS: CYANOCOBALAMIN 500 MCG TAB PO SCH (12:14)
== END 2019-03-07 13:20 | disposition home or self-care (01) | DRG 885 ==
LOC: EC 00:21 → 3MHU 14:12
PROVIDERS: ADMIT Psychiatry & Neurology Psychiatry; ATTEND Psychiatry & Neurology Psychiatry
DX: F32.3 Major depressive disorder, single episode, severe with psychotic features (principal); G81.90 Hemiplegia, unspecified affecting unspecified side; R45.851 Suicidal ideations; E88.40 Mitochondrial metabolism disorder, unspecified; Q21.1 Atrial septal defect; E11.43 Type 2 diabetes mellitus with diabetic autonomic (poly)neuropathy; E11.65 Type 2 diabetes mellitus with hyperglycemia; K31.84 Gastroparesis; Z79.4 Long term (current) use of insulin; E11.40 Type 2 diabetes mellitus with diabetic neuropathy, unspecified; E28.2 Polycystic ovarian syndrome; F43.10 Post-traumatic stress disorder, unspecified; F84.0 Autistic disorder; G47.419 Narcolepsy without cataplexy; Z79.01 Long term (current) use of anticoagulants; Z79.1 Long term (current) use of non-steroidal anti-inflammatories (NSAID); Z79.890 Hormone replacement therapy; Z79.899 Other long term (current) drug therapy; Z82.49 Family history of ischemic heart disease and other diseases of the circulatory system; Z83.3 Family history of diabetes mellitus; Z86.73 Personal history of transient ischemic attack (TIA), and cerebral infarction without residual deficits; Z86.14 Personal history of Methicillin resistant Staphylococcus aureus infection; Z88.2 Allergy status to sulfonamides; Z88.7 Allergy status to serum and vaccine; Z88.8 Allergy status to other drugs, medicaments and biological substances; Z88.1 Allergy status to other antibiotic agents; Z91.010 Allergy to peanuts; Z86.718 Personal history of other venous thrombosis and embolism; Z87.440 Personal history of urinary (tract) infections; R07.9 Chest pain, unspecified; E06.3 Autoimmune thyroiditis; Z91.81 History of falling; I95.1 Orthostatic hypotension
CPT/HCPCS: 36415; 80053; 80061; 80076; 80201; 80306; 81003; 81025; 82075; 84439; 84443; 85025; 99285

== ENCOUNTER 2019-03-12 13:45 | Emergency (ER) | payer MEDICARE, OTHER ==
[2019-03-12 13:52] VITALS: BP 108/66; RESP 20; TEMP 98.9
[2019-03-12] MEDS ORDERED: ALBUTEROL NEBULIZED 2.5 MG/3 ML INHALATION STA (14:53)
[2019-03-12 15:13] VITALS: PULSE 100
--- NOTE | 2019-03-12 15:38 | XR ---
EXAMINATION TYPE: XR chest 2V DATE OF EXAM: 03/12/2019 COMPARISON: Prior chest x-ray 02/09/2019 HISTORY: Pain TECHNIQUE: Frontal and lateral views of the chest are obtained. FINDINGS: Port-A-Cath shows a stable position, distal tip may be within the internal jugular vein. Th ere is no focal air space opacity, pleural effusion, or pneumothorax seen. The cardiac silhouette si ze is within normal limits. The osseous structures are intact. IMPRESSION: No acute cardiopulmonary process.
--- NOTE | 2019-03-12 16:04 | ED ---
URI HPI - General Chief Complaint: Upper Respiratory Infection Stated Complaint: Cough, R Side Pain, SOB Time Seen by Provider: 03/12/19 14:25 Source: patient, RN notes reviewed, old records reviewed Mode of arrival: wheelchair Limitations: no limitations - History of Present Illness Initial Comments: Pt is a 38 year old female with cough for one day, and complains of Right side pain with coughing. She reports history of asthma. She denies fevers or chills. - Related Data Home Medications Medication Instructions Recorded Confirmed Rivaroxaban [Xarelto] 20 mg PO HS 03/09/17 03/12/19 tiZANidine [Zanaflex] 8 mg PO HS 03/09/17 03/12/19 Metoclopramide [Reglan] 10 mg PO ACHS 07/29/17 03/12/19 Metoprolol Succinate (ER) [Toprol 100 mg PO DAILY 10/24/17 03/12/19 XL] Fenofibrate 160 mg PO DAILY 09/01/18 03/12/19 Dexlansoprazole [Dexilant] 30 mg PO QAM 12/04/18 03/12/19 Ferrous Sulfate [Iron (65 MG 325 mg PO DAILY 12/04/18 03/12/19 Elemental)] INSULIN ASPART (NovoLOG) [NovoLOG See Protocol SQ ACHS 12/04/18 03/12/19 (formulary)] Insulin Glargine [Lantus] 35 unit SQ HS 12/04/18 03/12/19 Loratadine 10 mg PO QAM 12/04/18 03/12/19 Losartan [Cozaar] 50 mg PO DAILY 12/04/18 03/12/19 tiZANidine [Zanaflex] 4 mg PO AC-BID 12/04/18 03/12/19 Levothyroxine Sodium [Synthroid] 100 mcg PO DAILY 01/16/19 03/12/19 Cyanocobalamin (Vitamin B-12) 2,000 mcg PO DAILY 01/22/19 03/12/19 [Vitamin B-12] Levothyroxine Sodium [Synthroid] 125 mcg PO DAILY 01/22/19 03/12/19 Meloxicam [Mobic] 15 mg PO DAILY 03/01/19 03/12/19 diphenhydrAMINE [Benadryl] 150 mg PO HS PRN 03/01/19 03/12/19 Butalb/APAP/Caff 50-325-40Mg 1 tab PO Q4H PRN 03/12/19 03/12/19 [Fioricet 50-325-40] Ondansetron HCl [Zofran] 8 mg PO Q6H PRN 03/12/19 03/12/19 Prochlorperazine Suppository 25 mg RECTAL BID PRN 03/12/19 03/12/19 [Compazine] Promethazine [Phenergan] 25 mg PO Q4H PRN 03/12/19 03/12/19 Venlafaxine HCl ER [Effexor XR] 300 mg PO DAILY@0900 03/12/19 03/12/19 Previous Rx's Medication Instructions Recorded Bacitracin Oint 1 applic TOPICAL BID applic 03/07/19 Gabapentin [Neurontin] 400 mg PO TID cap 03/07/19 Modafinil [Provigil] 200 mg PO DAILY tab 03/07/19 Topiramate [Topamax] 200 mg PO BID 30 Days #120 tab 03/07/19 cloNIDine HCL [Catapres] 0.1 mg PO BID 30 Days #60 tab 03/07/19 risperiDONE [RisperDAL] 1 mg PO HS 30 Days #30 tab 03/07/19 Albuterol Inhaler [Ventolin Hfa 1 - 2 puff INHALATION RT-Q6H PRN 03/12/19 Inhaler] #1 inhaler methylPREDNISolone Dose Pack 4 mg PO DIRECTED #21 package 03/12/19 [Medrol Dose Pack] Allergies Allergy/AdvReac Type Severity Reaction Status Date / Time barium sulfate Allergy Anaphylaxis Verified 03/12/19 14:31 diphtheria, pertussis, Allergy Unknown Verified 03/12/19 14:31 tetanus vacc doxepin [Doxepin] Allergy Anaphylaxis Verified 03/12/19 14:31 ephedrine Allergy Unknown Verified 03/12/19 14:31 ertapenem [From Invanz] Allergy Rash/Hives Verified 03/12/19 14:31 influenza virus vaccine, Allergy severe Verified 03/12/19 14:31 specific swelling [Influenza Virus and hives Vacc,Specific] peanut oil AdvReac Severe Nausea & Verified 03/12/19 14:31 Vomiting,itching doxycycline AdvReac Nausea & Verified 03/12/19 14:31 Vomiting & Diarrhea peanut AdvReac Nausea & Verified 03/12/19 14:31 Vomiting Pertussis Vaccines AdvReac fever/seizu Verified 03/12/19 14:31 re pseudoephedrine AdvReac Chest Pain Verified 03/12/19 14:31 pseudoephedrine HCl AdvReac Chest Pain Verified 03/12/19 14:31 [From Sudafed] sulfamethoxazole AdvReac Nausea & Verified 03/12/19 14:31 [From Bactrim] Vomiting trimethoprim [From Bactrim] AdvReac Nausea & Verified 03/12/19 14:31 Vomiting Review of Systems ROS Statement: Those systems with pertinent positive or pertinent negative responses have been documented in the HPI. ROS Other: All systems not noted in ROS Statement are negative. Past Medical History Past Medical History: Chest Pain / Angina, CVA/TIA, Diabetes Mellitus, Deep Vein Thrombosis (DVT), Neurologic Disorder, Syncope, Thyroid Disorder Additional Past Medical History / Comment(s): STROKE LIKE EPISODE D/T MITOCHRONDIAL DISEASE HAD WORK UP DONE AT [facility]. Dysautonomia-progressive neurological disorder, lupus/LUPUS ANTICOAGULANTS, ana maria's disease, lymphedema Lt arm d/t DVTs , v-tach, pituitary microadenoma. patent foramen ovale, narcolepsy, gastropareis, IDDM type II, falls, orthostatic hypotension/syncope, migraines with hemiplegia, pernicious anemia, polycystic ovarian syndrome, neuropathy bilateral legs/fee-mild, uti's. History of Any Multi-Drug Resistant Organisms: ESBL, MRSA Date of last positivie culture/infection: 03/09/17 MRSA/ 05/17/18 ESBL MDRO Source:: MRSA LEFT ARM,/ESBL URINE ECOLI Past Surgical History: Ablation, Uterine Ablation Additional Past Surgical History / Comment(s): colonscopy/egd, angie, PORT-A -CATH INSERTION 04-28-18 Past Anesthesia/Blood Transfusion Reactions: No Reported Reaction Additional Past Anesthesia/Blood Transfusion Reaction / Comment(s): patient states "It takes a lot of anesthesia for my body to react". Pt has received blood in past without reaction. Past Psychological History: Bipolar, Depression Smoking Status: Never smoker Past Alcohol Use History: None Reported Past Drug Use History: None Reported - Past Family History Brother(s) Family Medical History: Diabetes Mellitus, Hyperlipidemia, Hypertension Additional Family Medical History / Comment(s): Patient states she has 1 brother with no major medical problems. Father Family Medical History: Diabetes Mellitus, Hyperlipidemia, Hypertension Additional Family Medical History / Comment(s): DAD IS 70 YEARS OLD. Patient states she does not have any contact with her father and does not know his medical history. Mother Family Medical History: CVA/TIA, Deep Vein Thrombosis (DVT) Additional Family Medical History / Comment(s): antiphospholipid antibody syndrome General Exam - General Exam Comments Initial Comments: Well appearing 38 year old female, no distress. Limitations: no limitations General appearance: alert, in no apparent distress Head exam: Present: atraumatic, normocephalic, normal inspection Eye exam: Present: normal appearance, PERRL, EOMI. Absent: scleral icterus, conjunctival injection, periorbital swelling ENT exam: Present: normal exam, mucous membranes moist Neck exam: Present: normal inspection. Absent: tenderness, meningismus, lymphadenopathy Respiratory exam: Present: normal lung sounds bilaterally. Absent: respiratory distress, wheezes, rales, rhonchi, stridor Cardiovascular Exam: Present: regular rate, normal rhythm, normal heart sounds. Absent: systolic murmur, diastolic murmur, rubs, gallop, clicks GI/Abdominal exam: Present: soft, normal bowel sounds. Absent: distended, tenderness, guarding, rebound, rigid Extremities exam: Present: normal inspection, full ROM, normal capillary refill. Absent: tenderness, pedal edema, joint swelling, calf tenderness Back exam: Present: normal inspection Neurological exam: Present: alert, oriented X3, CN II-XII intact Psychiatric exam: Present: normal affect, normal mood Skin exam: Present: warm, dry, intact, normal color. Absent: rash Course Vital Signs 03/12/19 03/12/19 03/12/19 13:50 14:58 15:12 Temperature 98.9 F Pulse Rate 111 H 102 H 100 Respiratory 20 Rate Blood Pressure 108/66 O2 Sat by Pulse 99 Oximetry Medical Decision Making - Medical Decision Making 38 year old withone day of cough. She reports right sided rib pain for one day. She has no fever, denies hemoptysis. CXR is normal. She had minimal wheezing. Pt reevaluated after treatment and has improved airation. Pt likely suffering from viral bronchitis. Return parameters discussed. Discussed steroids and inhaler use. - Radiology Data Radiology results: report reviewed No acute cardiopulmonary process. Disposition Clinical Impression: Bronchitis Disposition: HOME SELF-CARE Condition: Good Instructions (If sedation given, give patient instructions): Acute Bronchitis (ED) Additional Instructions: Patient advised to follow-up with primary care doctor. Return to emergency department if any alarming signs or symptoms occur. Prescriptions: methylPREDNISolone Dose Pack [Medrol Dose Pack] 4 mg PO DIRECTED #21 package Albuterol Inhaler [Ventolin Hfa Inhaler] 1 - 2 puff INHALATION RT-Q6H PRN #1 inhaler PRN Reason: Cough Is patient prescribed a controlled substance at d/c from ED?: No Referrals: Fran Thompson MD [Primary Care Provider] - 1-2 days Time of Disposition: 16:02
== END 2019-03-12 16:20 | disposition home or self-care (01) ==
LOC: EC 13:45
DX: J45.909 Unspecified asthma, uncomplicated (principal); E11.9 Type 2 diabetes mellitus without complications; E07.9 Disorder of thyroid, unspecified; E06.3 Autoimmune thyroiditis; M32.9 Systemic lupus erythematosus, unspecified; F31.9 Bipolar disorder, unspecified; Z86.73 Personal history of transient ischemic attack (TIA), and cerebral infarction without residual deficits; Z86.14 Personal history of Methicillin resistant Staphylococcus aureus infection; G47.419 Narcolepsy without cataplexy; Z79.01 Long term (current) use of anticoagulants; Z79.4 Long term (current) use of insulin; Z79.890 Hormone replacement therapy; Z79.899 Other long term (current) drug therapy; Z88.7 Allergy status to serum and vaccine; Z88.8 Allergy status to other drugs, medicaments and biological substances; Z88.1 Allergy status to other antibiotic agents; Z91.010 Allergy to peanuts; Z88.2 Allergy status to sulfonamides
CPT/HCPCS: 71046; 94640; 99285

== ENCOUNTER 2019-03-30 01:19 | Emergency (ER) | payer MEDICARE, OTHER ==
[2019-03-30 01:23] VITALS: TEMP 99.6
[2019-03-30 01:31] LABS: Glucose,Whole Blood 506 mg/dL (75-99)
[2019-03-30] MEDS ORDERED: SODIUM CHLORIDE 0.9% 2,000 ML IV STA (01:35)
[2019-03-30 02:01] LABS: Basophils # (A) 0.1 k/uL (0-0.2); Basophils % (A) 1 %; Eosinophils # (A) 0.3 k/uL (0-0.7); Eosinophils % (A) 3 %; HCT 35.3 % (34.0-46.0); HGB 11.5 gm/dL (11.4-16.0); Lymphocytes # (A) 2.3 k/uL (1.0-4.8); Lymphocytes % (A) 26 %; MCH 29.7 pg (25.0-35.0); MCHC 32.6 g/dL (31.0-37.0); MCV 91.2 fL (80.0-100.0); Mean Platelet Volume 7.2; Monocytes # (A) 0.4 k/uL (0-1.0); Monocytes % (A) 4 %; Neutrophils # (A) 5.9 k/uL (1.3-7.7); Neutrophils % (A) 65 %; Platelet Count 358 k/uL (150-450); RBC 3.87 m/uL (3.80-5.40); RDW 14.6 % (11.5-15.5); WBC 9.2 k/uL (3.8-10.6)
[2019-03-30 02:13] LABS: ALT 20 U/L (9-52); AST 25 U/L (14-36); Albumin 4.3 g/dL (3.5-5.0); Alkaline Phosphatase 100 U/L (38-126); Amylase 40 U/L (30-110); Anion Gap 12 mmol/L; Blood Urea Nitrogen 15 mg/dL (7-17); Carbon Dioxide 20 mmol/L (22-30); Chloride 104 mmol/L (98-107); Glucose 494 mg/dL (74-99); Lipase 101 U/L (23-300); Potassium 4.5 mmol/L (3.5-5.1); Sodium 136 mmol/L (137-145); Total Bilirubin 0.5 mg/dL (0.2-1.3)
[2019-03-30 02:30] LABS: Appearance,Urine Clear (Clear); Bilirubin,Urine Negative (Negative); Blood,Urine Negative (Negative); Color,Urine Light Yellow; Glucose,Urine (UA) 4+ (Negative); Ketones,Urine Negative (Negative); Leukocyte Esterase,Urine Negative (Negative); Nitrite,Urine Negative (Negative); PH, Urine 5.5 (5.0-8.0); Protein,Urine Negative (Negative); Specific Gravity,Urine 1.039 (1.001-1.035); Urobilinogen,Urine <2.0 mg/dL (<2.0)
--- NOTE | 2019-03-30 02:47 | ED ---
General Adult HPI - General Chief complaint: Recheck/Abnormal Lab/Rx Stated complaint: High Blood Sugar Time Seen by Provider: 03/30/19 01:23 Source: EMS, RN notes reviewed Mode of arrival: EMS Limitations: no limitations - History of Present Illness Initial comments: 38-year-old female with complicated past medical history including insulin- dependent diabetes mellitus presents to the emergency department for a chief complaint of hyperglycemia. Patient states she was unable to control her glucose today. States it was running around 600 and she gave herself a sliding scale of insulin. Patient states she then waited 2 hours and it did not change so she gave another dose of short-acting insulin. Denies any other symptomology. Denies fevers or chills. States she has been getting over bronchitis but that this is improving. States last time she had steroids was several weeks ago.Patient has no other complaints at this time including shortne ss of breath, chest pain, abdominal pain, nausea or vomiting, headache, or visual changes. - Related Data Home Medications Medication Instructions Recorded Confirmed Rivaroxaban [Xarelto] 20 mg PO HS 03/09/17 03/12/19 tiZANidine [Zanaflex] 8 mg PO HS 03/09/17 03/12/19 Metoclopramide [Reglan] 10 mg PO ACHS 07/29/17 03/12/19 Metoprolol Succinate (ER) [Toprol 100 mg PO DAILY 10/24/17 03/12/19 XL] Fenofibrate 160 mg PO DAILY 09/01/18 03/12/19 Dexlansoprazole [Dexilant] 30 mg PO QA 12/04/18 03/12/19 Ferrous Sulfate [Iron (65 MG 325 mg PO DAILY 12/04/18 03/12/19 Elemental)] INSULIN ASPART (NovoLOG) [NovoLOG See Protocol SQ [facility] 12/04/18 03/12/19 (formulary)] Insulin Glargine [Lantus] 35 unit SQ HS 12/04/18 03/12/19 Loratadine 10 mg PO QAM 12/04/18 03/12/19 Losartan [Cozaar] 50 mg PO DAILY 12/04/18 03/12/19 tiZANidine [Zanaflex] 4 mg PO AC-BID 12/04/18 03/12/19 Levothyroxine Sodium [Synthroid] 100 mcg PO DAILY 01/16/19 03/12/19 Cyanocobalamin (Vitamin B-12) 2,000 mcg PO DAILY 01/22/19 03/12/19 [Vitamin B-12] Levothyroxine Sodium [Synthroid] 125 mcg PO DAILY 01/22/19 03/12/19 Meloxicam [Mobic] 15 mg PO DAILY 03/01/19 03/12/19 diphenhydrAMINE [Benadryl] 150 mg PO HS PRN 03/01/19 03/12/19 Butalb/APAP/Caff 50-325-40Mg 1 tab PO Q4H PRN 03/12/19 03/12/19 [Fioricet 50-325-40] Ondansetron HCl [Zofran] 8 mg PO Q6H PRN 03/12/19 03/12/19 Prochlorperazine Suppository 25 mg RECTAL BID PRN 03/12/19 03/12/19 [Compazine] Promethazine [Phenergan] 25 mg PO Q4H PRN 03/12/19 03/12/19 Venlafaxine HCl ER [Effexor XR] 300 mg PO DAILY@0900 03/12/19 03/12/19 Previous Rx's Medication Instructions Recorded Bacitracin Oint 1 applic TOPICAL BID applic 03/07/19 Gabapentin [Neurontin] 400 mg PO TID cap 03/07/19 Modafinil [Provigil] 200 mg PO DAILY tab 03/07/19 Topiramate [Topamax] 200 mg PO BID 30 Days #120 tab 03/07/19 cloNIDine HCL [Catapres] 0.1 mg PO BID 30 Days #60 tab 03/07/19 risperiDONE [RisperDAL] 1 mg PO HS 30 Days #30 tab 03/07/19 Albuterol Inhaler [Ventolin Hfa 1 - 2 puff INHALATION RT-Q6H PRN 03/12/19 Inhaler] #1 inhaler methylPREDNISolone Dose Pack 4 mg PO DIRECTED #21 package 03/12/19 [Medrol Dose Pack] Allergies Allergy/AdvReac Type Severity Reaction Status Date / Time barium sulfate Allergy Anaphylaxis Verified 03/30/19 01:23 diphtheria, pertussis, Allergy Unknown Verified 03/30/19 01:23 tetanus vacc doxepin [Doxepin] Allergy Anaphylaxis Verified 03/30/19 01:23 ephedrine Allergy Unknown Verified 03/30/19 01:23 ertapenem [From Invanz] Allergy Rash/Hives Verified 03/30/19 01:23 influenza virus vaccine, Allergy severe Verified 03/30/19 01:23 specific swelling [Influenza Virus and hives Vacc,Specific] peanut oil AdvReac Severe Nausea & Verified 03/30/19 01:23 Vomiting,itching doxycycline AdvReac Nausea & Verified 03/30/19 01:23 Vomiting & Diarrhea peanut AdvReac Nausea & Verified 03/30/19 01:23 Vomiting Pertussis Vaccines AdvReac fever/seizu Verified 03/30/19 01:23 re pseudoephedrine AdvReac Chest Pain Verified 03/30/19 01:23 pseudoephedrine HCl AdvReac Chest Pain Verified 03/30/19 01:23 [From Sudafed] sulfamethoxazole AdvReac Nausea & Verified 03/30/19 01:23 [From Bactrim] Vomiting trimethoprim [From Bactrim] AdvReac Nausea & Verified 03/30/19 01:23 Vomiting Review of Systems ROS Statement: Those systems with pertinent positive or pertinent negative responses have been documented in the HPI. ROS Other: All systems not noted in ROS Statement are negative. Past Medical History Past Medical History: Chest Pain / Angina, CVA/TIA, Diabetes Mellitus, Deep Vein Thrombosis (DVT), Neurologic Disorder, Syncope, Thyroid Disorder Additional Past Medical History / Comment(s): STROKE LIKE EPISODE D/T MITOCHRONDIAL DISEASE HAD WORK UP DONE AT [facility]. Dysautonomia-progressive neurological disorder, lupus/LUPUS ANTICOAGULANTS, ana maria's disease, lymphedema Lt arm d/t DVTs , v-tach, pituitary microadenoma. patent foramen ovale, narcolepsy, gastropareis, IDDM type II, falls, orthostatic hypotension/syncope, migraines with hemiplegia, pernicious anemia, polycystic ovarian syndrome, neuropathy bilateral legs/fee-mild, uti's. History of Any Multi-Drug Resistant Organisms: ESBL, MRSA Date of last positivie culture/infection: 03/09/17 MRSA/ 05/17/18 ESBL MDRO Source:: MRSA LEFT ARM,/ESBL URINE ECOLI Past Surgical History: Ablation, Uterine Ablation Additional Past Surgical History / Comment(s): colonscopy/egd, angie, PORT-A -CATH INSERTION 04-28-18 Past Anesthesia/Blood Transfusion Reactions: No Reported Reaction Additional Past Anesthesia/Blood Transfusion Reaction / Comment(s): patient states "It takes a lot of anesthesia for my body to react". Pt has received blood in past without reaction. Past Psychological History: Bipolar, Depression Smoking Status: Never smoker Past Alcohol Use History: None Reported Past Drug Use History: None Reported - Past Family History Brother(s) Family Medical History: Diabetes Mellitus, Hyperlipidemia, Hypertension Additional Family Medical History / Comment(s): Patient states she has 1 brother with no major medical problems. Father Family Medical History: Diabetes Mellitus, Hyperlipidemia, Hypertension Additional Family Medical History / Comment(s): DAD IS 70 YEARS OLD. Patient states she does not have any contact with her father and does not know his medical history. Mother Family Medical History: CVA/TIA, Deep Vein Thrombosis (DVT) Additional Family Medical History / Comment(s): antiphospholipid antibody syndrome General Exam Limitations: no limitations General appearance: alert, in no apparent distress Head exam: Present: atraumatic, normocephalic, normal inspection Eye exam: Present: normal appearance, PERRL, EOMI. Absent: scleral icterus, conjunctival injection, periorbital swelling ENT exam: Present: normal exam, normal oropharynx, TM's normal bilaterally, normal external ear exam. Absent: mucous membranes moist (Mucous membranes do appear somewhat dry.) Neck exam: Present: normal inspection, full ROM. Absent: tenderness, meningismus, lymphadenopathy Respiratory exam: Present: normal lung sounds bilaterally. Absent: respiratory distress, wheezes, rales, rhonchi, stridor Cardiovascular Exam: Present: regular rate, normal rhythm, normal heart sounds. Absent: systolic murmur, diastolic murmur, rubs, gallop, clicks GI/Abdominal exam: Present: soft, normal bowel sounds. Absent: distended, tenderness, guarding, rebound, rigid Neurological exam: Present: alert, oriented X3, CN II-XII intact Psychiatric exam: Present: normal affect, normal mood Course Vital Signs 03/30/19 03/30/19 01:20 03:22 Temperature 99.6 F Pulse Rate 87 78 Respiratory 20 16 Rate Blood Pressure 94/67 102/71 O2 Sat by Pulse 98 100 Oximetry Medical Decision Making - Medical Decision Making 38-year-old female with completed past medical history including IDDM presents to the emergency department for chief complaint of hyperglycemia. States she was unable to control her glucose today and was running around 600. Patient did give herself sliding scale insulin. Patient does appear somewhat dry on presentation to the emergency department. Given 2 L of fluids IV. CBC unremarkable. CMP shows an anion gap of 12 with a negative acetone. No ketones in the urine. No evidence for DKA. Glucose is 494. After 2 L of fluids and given glucose did decrease to 355. Patient was given 10 units of insulin IV at that time. Glucose did decrease to 200s. Patient reevaluated, no signs of this time. Will be discharged home. - Lab Data Result diagrams: 03/30/19 01:53 03/30/19 01:53 Lab Results 03/30/19 03/30/19 03/30/19 Range/Units 01:21 01:53 01:53 WBC 9.2 (3.8-10.6) k/uL RBC 3.87 (3.80-5.40) m/uL Hgb 11.5 (11.4-16.0) gm/dL Hct 35.3 (34.0-46.0) % MCV 91.2 (80.0-100.0) fL MCH 29.7 (25.0-35.0) pg MCHC 32.6 (31.0-37.0) g/dL RDW 14.6 (11.5-15.5) % Plt Count 358 (150-450) k/uL Neutrophils % 65 % Lymphocytes % 26 % Monocytes % 4 % Eosinophils % 3 % Basophils % 1 % Neutrophils # 5.9 (1.3-7.7) k/uL Lymphocytes # 2.3 (1.0-4.8) k/uL Monocytes # 0.4 (0-1.0) k/uL Eosinophils # 0.3 (0-0.7) k/uL Basophils # 0.1 (0-0.2) k/uL Sodium 136 L (137-145) mmol/L Potassium 4.5 (3.5-5.1) mmol/L Chloride 104 (98-107) mmol/L Carbon Dioxide 20 L (22-30) mmol/L Anion Gap 12 mmol/L BUN 15 (7-17) mg/dL Creatinine 0.79 (0.52-1.04) mg/dL Est GFR (CKD-EPI)AfAm >90 (>60 ml/min/1.73 sqM) Est GFR (CKD-EPI)NonAf >90 (>60 ml/min/1.73 sqM) Glucose 494 H (74-99) mg/dL POC Glucose (mg/dL) 506 H (75-99) mg/dL POC Glu [employer] ID [employer] Calcium 10.0 (8.4-10.2) mg/dL Total Bilirubin 0.5 (0.2-1.3) mg/dL AST 25 (14-36) U/L ALT 20 (9-52) U/L Alkaline Phosphatase 100 (38-126) U/L Total Protein 7.0 (6.3-8.2) g/dL Albumin 4.3 (3.5-5.0) g/dL Amylase 40 (30-110) U/L Lipase 101 (23-300) U/L Urine Color Urine Appearance (Clear) Urine pH (5.0-8.0) Ur Specific Whitmer (1.001-1.035) Urine Protein (Negative) Urine Glucose (UA) (Negative) Urine Ketones (Negative) Urine Blood (Negative) Urine Nitrite (Negative) Urine Bilirubin (Negative) Urine Urobilinogen (<2.0) mg/dL Ur Leukocyte Esterase (Negative) Urine HCG, Qual (Not Detectd) Acetone, Qual (Negative) 03/30/19 03/30/19 03/30/19 Range/Units 01:53 02:20 02:20 WBC (3.8-10.6) k/uL RBC (3.80-5.40) m/uL Hgb (11.4-16.0) gm/dL Hct (34.0-46.0) % MCV (80.0-100.0) fL MCH (25.0-35.0) pg MCHC (31.0-37.0) g/dL RDW (11.5-15.5) % Plt Count (150-450) k/uL Neutrophils % % Lymphocytes % % Monocytes % % Eosinophils % % Basophils % % Neutrophils # (1.3-7.7) k/uL Lymphocytes # (1.0-4.8) k/uL Monocytes # (0-1.0) k/uL Eosinophils # (0-0.7) k/uL Basophils # (0-0.2) k/uL Sodium (137-145) mmol/L Potassium (3.5-5.1) mmol/L Chloride (98-107) mmol/L Carbon Dioxide (22-30) mmol/L Anion Gap mmol/L BUN (7-17) mg/dL Creatinine (0.52-1.04) mg/dL Est GFR (CKD-EPI)AfAm (>60 ml/min/1.73 sqM) Est GFR (CKD-EPI)NonAf (>60 ml/min/1.73 sqM) Glucose (74-99) mg/dL POC Glucose (mg/dL) (75-99) mg/dL POC Glu [employer] ID Calcium (8.4-10.2) mg/dL Total Bilirubin (0.2-1.3) mg/dL AST (14-36) U/L ALT (9-52) U/L Alkaline Phosphatase (38-126) U/L Total Protein (6.3-8.2) g/dL Albumin (3.5-5.0) g/dL Amylase (30-110) U/L Lipase (23-300) U/L Urine Color Light Yellow Urine Appearance Clear (Clear) Urine pH 5.5 (5.0-8.0) Ur Specific Whitmer 1.039 H (1.001-1.035) Urine Protein Negative (Negative) Urine Glucose (UA) 4+ H (Negative) Urine Ketones Negative (Negative) Urine Blood Negative (Negative) Urine Nitrite Negative (Negative) Urine Bilirubin Negative (Negative) Urine Urobilinogen <2.0 (<2.0) mg/dL Ur Leukocyte Esterase Negative (Negative) Urine HCG, Qual Not Detected (Not Detectd) Acetone, Qual Negative (Negative) 03/30/19 Range/Units 03:11 WBC (3.8-10.6) k/uL RBC (3.80-5.40) m/uL Hgb (11.4-16.0) gm/dL Hct (34.0-46.0) % MCV (80.0-100.0) fL MCH (25.0-35.0) pg MCHC (31.0-37.0) g/dL RDW (11.5-15.5) % Plt Count (150-450) k/uL Neutrophils % % Lymphocytes % % Monocytes % % Eosinophils % % Basophils % % Neutrophils # (1.3-7.7) k/uL Lymphocytes # (1.0-4.8) k/uL Monocytes # (0-1.0) k/uL Eosinophils # (0-0.7) k/uL Basophils # (0-0.2) k/uL Sodium (137-145) mmol/L Potassium (3.5-5.1) mmol/L Chloride (98-107) mmol/L Carbon Dioxide (22-30) mmol/L Anion Gap mmol/L BUN (7-17) mg/dL Creatinine (0.52-1.04) mg/dL Est GFR (CKD-EPI)AfAm (>60 ml/min/1.73 sqM) Est GFR (CKD-EPI)NonAf (>60 ml/min/1.73 sqM) Glucose (74-99) mg/dL POC Glucose (mg/dL) 355 H (75-99) mg/dL POC Glu [employer] ID Mendoza Claudio Calcium (8.4-10.2) mg/dL Total Bilirubin (0.2-1.3) mg/dL AST (14-36) U/L ALT (9-52) U/L Alkaline Phosphatase (38-126) U/L Total Protein (6.3-8.2) g/dL Albumin (3.5-5.0) g/dL Amylase (30-110) U/L Lipase (23-300) U/L Urine Color Urine Appearance (Clear) Urine pH (5.0-8.0) Ur Specific Whitmer (1.001-1.035) Urine Protein (Negative) Urine Glucose (UA) (Negative) Urine Ketones (Negative) Urine Blood (Negative) Urine Nitrite (Negative) Urine Bilirubin (Negative) Urine Urobilinogen (<2.0) mg/dL Ur Leukocyte Esterase (Negative) Urine HCG, Qual (Not Detectd) Acetone, Qual (Negative) Disposition Clinical Impression: Hyperglycemia Disposition: HOME SELF-CARE Condition: Good Instructions (If sedation given, give patient instructions): Diabetic Hyperglycemia (ED) Additional Instructions: Please follow up with primary care in 1-2 days or return here to the emergency Department if you develop any worsening symptoms. Is patient prescribed a controlled substance at d/c from ED?: No Referrals: Fran Thompson MD [Primary Care Provider] - 1-2 days Time of Disposition: 04:13
[2019-03-30] MEDS ORDERED: INSULIN REGULAR 100 UNIT/ML VIAL IV ONE (03:12)
[2019-03-30 03:27] LABS: Glucose,Whole Blood 355 mg/dL (75-99)
[2019-03-30 04:03] VITALS: BP 102/71; PULSE 78; RESP 16
[2019-03-30 04:13] LABS: Glucose,Whole Blood 229 mg/dL (75-99)
== END 2019-03-30 04:22 | disposition home or self-care (01) ==
LOC: EC 01:19
DX: E11.65 Type 2 diabetes mellitus with hyperglycemia (principal); E06.3 Autoimmune thyroiditis; F31.9 Bipolar disorder, unspecified; E11.40 Type 2 diabetes mellitus with diabetic neuropathy, unspecified; Z86.718 Personal history of other venous thrombosis and embolism; Z86.14 Personal history of Methicillin resistant Staphylococcus aureus infection; Z79.4 Long term (current) use of insulin; Z79.01 Long term (current) use of anticoagulants; Z79.890 Hormone replacement therapy; Z79.899 Other long term (current) drug therapy; Z88.7 Allergy status to serum and vaccine; Z91.010 Allergy to peanuts; Z88.2 Allergy status to sulfonamides; Z88.1 Allergy status to other antibiotic agents; Z88.8 Allergy status to other drugs, medicaments and biological substances
CPT/HCPCS: 36415; 80053; 81003; 81025; 82009; 82150; 83690; 85025; 96360; 99284

== ENCOUNTER 2019-04-13 16:10 | Emergency (ER) | payer MEDICARE ==
[2019-04-13 16:14] VITALS: RESP 18
[2019-04-13] MEDS ORDERED: ACETAMINOPHEN TAB 500 MG TAB PO STA (16:57)
[2019-04-13] MEDS ORDERED: SODIUM CHLORIDE 0.9% 1,000 ML IV STA ×2 (16:57)
--- NOTE | 2019-04-13 17:34 | ED ---
Fever HPI - General Chief Complaint: Fever Stated Complaint: fever Time Seen by Provider: 04/13/19 16:31 Source: patient, RN notes reviewed, old records reviewed Mode of arrival: wheelchair Limitations: no limitations - History of Present Illness Initial Comments: Patient is a 38-year-old female presents for his department today with complaints of a fever over 101, in 3 days of UTI like symptoms. Patient reports she has a history of mitochondrial disease dysautonomia, lupus, migraines, polycystic ovarian syndrome, anemia. Patient reports that she has a port due to poor vascular access and frequent dehydration. Patient has had no nausea or vomiting. She does complain of right-sided back pain. - Related Data Home Medications Medication Instructions Recorded Confirmed Rivaroxaban [Xarelto] 20 mg PO HS 03/09/17 03/12/19 tiZANidine [Zanaflex] 8 mg PO HS 03/09/17 03/12/19 Metoclopramide [Reglan] 10 mg PO [facility] 07/29/17 03/12/19 Metoprolol Succinate (ER) [Toprol 100 mg PO DAILY 10/24/17 03/12/19 XL] Fenofibrate 160 mg PO DAILY 09/01/18 03/12/19 Dexlansoprazole [Dexilant] 30 mg PO M 12/04/18 03/12/19 Ferrous Sulfate [Iron (65 MG 325 mg PO DAILY 12/04/18 03/12/19 Elemental)] INSULIN ASPART (NovoLOG) [NovoLOG See Protocol SQ [facility] 12/04/18 03/12/19 (formulary)] Insulin Glargine [Lantus] 35 unit SQ 12/04/18 03/12/19 Loratadine 10 mg PO QAM 12/04/18 03/12/19 Losartan [Cozaar] 50 mg PO DAILY 12/04/18 03/12/19 tiZANidine [Zanaflex] 4 mg PO AC-BID 12/04/18 03/12/19 Levothyroxine Sodium [Synthroid] 100 mcg PO DAILY 01/16/19 03/12/19 Cyanocobalamin (Vitamin B-12) 2,000 mcg PO DAILY 01/22/19 03/12/19 [Vitamin B-12] Levothyroxine Sodium [Synthroid] 125 mcg PO DAILY 01/22/19 03/12/19 Meloxicam [Mobic] 15 mg PO DAILY 03/01/19 03/12/19 diphenhydrAMINE [Benadryl] 150 mg PO HS PRN 03/01/19 03/12/19 Butalb/APAP/Caff 50-325-40Mg 1 tab PO Q4H PRN 03/12/19 03/12/19 [Fioricet 50-325-40] Ondansetron HCl [Zofran] 8 mg PO Q6H PRN 03/12/19 03/12/19 Prochlorperazine Suppository 25 mg RECTAL BID PRN 03/12/19 03/12/19 [Compazine] Promethazine [Phenergan] 25 mg PO Q4H PRN 03/12/19 03/12/19 Venlafaxine HCl ER [Effexor XR] 300 mg PO DAILY@0900 03/12/19 03/12/19 Previous Rx's Medication Instructions Recorded Bacitracin Oint 1 applic TOPICAL BID applic 03/07/19 Gabapentin [Neurontin] 400 mg PO TID cap 03/07/19 Modafinil [Provigil] 200 mg PO DAILY tab 03/07/19 Topiramate [Topamax] 200 mg PO BID 30 Days #120 tab 03/07/19 cloNIDine HCL [Catapres] 0.1 mg PO BID 30 Days #60 tab 03/07/19 risperiDONE [RisperDAL] 1 mg PO HS 30 Days #30 tab 03/07/19 Albuterol Inhaler [Ventolin Hfa 1 - 2 puff INHALATION RT-Q6H PRN 03/12/19 Inhaler] #1 inhaler methylPREDNISolone Dose Pack 4 mg PO DIRECTED #21 package 03/12/19 [Medrol Dose Pack] Nitrofurantoin Monohyd/M-Cryst 100 mg PO Q12HR #14 cap 04/13/19 [Macrobid] Allergies Allergy/AdvReac Type Severity Reaction Status Date / Time barium sulfate Allergy Anaphylaxis Verified 04/13/19 16:14 diphtheria, pertussis, Allergy Unknown Verified 04/13/19 16:14 tetanus vacc doxepin [Doxepin] Allergy Anaphylaxis Verified 04/13/19 16:14 ephedrine Allergy Unknown Verified 04/13/19 16:14 ertapenem [From Invanz] Allergy Rash/Hives Verified 04/13/19 16:14 influenza virus vaccine, Allergy severe Verified 04/13/19 16:14 specific swelling [Influenza Virus and hives Vacc,Specific] peanut oil AdvReac Severe Nausea & Verified 04/13/19 16:14 Vomiting,itching doxycycline AdvReac Nausea & Verified 04/13/19 16:14 Vomiting & Diarrhea peanut AdvReac Nausea & Verified 04/13/19 16:14 Vomiting Pertussis Vaccines AdvReac fever/seizu Verified 04/13/19 16:14 re pseudoephedrine AdvReac Chest Pain Verified 04/13/19 16:14 pseudoephedrine HCl AdvReac Chest Pain Verified 04/13/19 16:14 [From Sudafed] sulfamethoxazole AdvReac Nausea & Verified 04/13/19 16:14 [From Bactrim] Vomiting trimethoprim [From Bactrim] AdvReac Nausea & Verified 04/13/19 16:14 Vomiting Review of Systems ROS Statement: Those systems with pertinent positive or pertinent negative responses have been documented in the HPI. ROS Other: All systems not noted in ROS Statement are negative. Past Medical History Past Medical History: Chest Pain / Angina, CVA/TIA, Diabetes Mellitus, Deep Vein Thrombosis (DVT), Neurologic Disorder, Syncope, Thyroid Disorder Additional Past Medical History / Comment(s): STROKE LIKE EPISODE D/T MITOCHRONDIAL DISEASE HAD WORK UP DONE AT [facility]. Dysautonomia-progressive neurological disorder, lupus/LUPUS ANTICOAGULANTS, ana maria's disease, lymphedema Lt arm d/t DVTs , v-tach, pituitary microadenoma. patent foramen ovale, narcolepsy, gastropareis, IDDM type II, falls, orthostatic h ypotension/syncope, migraines with hemiplegia, pernicious anemia, polycystic ovarian syndrome, neuropathy bilateral legs/fee-mild, uti's. History of Any Multi-Drug Resistant Organisms: ESBL, MRSA Date of last positivie culture/infection: 03/09/17 MRSA/ 05/17/18 ESBL MDRO Source:: MRSA LEFT ARM,/ESBL URINE [facility] Past Surgical History: Ablation, Uterine Ablation Additional Past Surgical History / Comment(s): colonscopy/egd, angie, PORT-A -CATH INSERTION 04-28-18 Past Anesthesia/Blood Transfusion Reactions: No Reported Reaction Additional Past Anesthesia/Blood Transfusion Reaction / Comment(s): patient states "It takes a lot of anesthesia for my body to react". Pt has received blood in past without reaction. Past Psychological History: Bipolar, Depression Smoking Status: Never smoker Past Alcohol Use History: None Reported Past Drug Use History: None Reported - Past Family History Brother(s) Family Medical History: Diabetes Mellitus, Hyperlipidemia, Hypertension Additional Family Medical History / Comment(s): Patient states she has 1 brother with no major medical problems. Father Family Medical History: Diabetes Mellitus, Hyperlipidemia, Hypertension Additional Family Medical History / Comment(s): DAD IS 70 YEARS OLD. Patient states she does not have any contact with her father and does not know his medical history. Mother Family Medical History: CVA/TIA, Deep Vein Thrombosis (DVT) Additional Family Medical History / Comment(s): antiphospholipid antibody syndrome General Exam - General Exam Comments Initial Comments: Alert and oriented 38-year-old female. No significant distress. Limitations: no limitations General appearance: alert, in no apparent distress Head exam: Present: atraumatic, normocephalic, normal inspection Eye exam: Present: normal appearance ENT exam: Present: normal exam, mucous membranes moist Neck exam: Present: normal inspection. Absent: tenderness, meningismus, ly mphadenopathy Respiratory exam: Present: normal lung sounds bilaterally. Absent: respiratory distress, wheezes, rales, rhonchi, stridor Cardiovascular Exam: Present: regular rate, normal rhythm, normal heart sounds. Absent: systolic murmur, diastolic murmur, rubs, gallop, clicks GI/Abdominal exam: Present: soft, tenderness (R cva tenderness), normal bowel sounds. Absent: distended, guarding, rebound, rigid Extremities exam: Present: normal inspection, full ROM, normal capillary refill. Absent: tenderness, pedal edema, joint swelling, calf tenderness Back exam: Present: normal inspection Neurological exam: Present: alert, oriented X3, CN II-XII intact Psychiatric exam: Present: normal affect, normal mood Skin exam: Present: warm, dry, intact, normal color. Absent: rash Course Vital Signs 04/13/19 16:12 Temperature 99.3 F Pulse Rate 97 Respiratory 18 Rate Blood Pressure 110/77 O2 Sat by Pulse 98 Oximetry Medical Decision Making - Lab Data Result diagrams: 04/13/19 17:10 04/13/19 17:10 Lab Results 04/13/19 04/13/19 04/13/19 Range/Units 17:10 17:10 17:10 WBC 9.1 (3.8-10.6) k/uL RBC 4.02 (3.80-5.40) m/uL Hgb 11.3 L (11.4-16.0) gm/dL Hct 34.6 (34.0-46.0) % MCV 86.1 D (80.0-100.0) fL MCH 28.2 (25.0-35.0) pg MCHC 32.7 (31.0-37.0) g/dL RDW 14.5 (11.5-15.5) % Plt Count 424 (150-450) k/uL Neutrophils % 72 % Lymphocytes % 18 % Monocytes % 6 % Eosinophils % 3 % Basophils % 0 % Neutrophils # 6.5 (1.3-7.7) k/uL Lymphocytes # 1.7 (1.0-4.8) k/uL Monocytes # 0.5 (0-1.0) k/uL Eosinophils # 0.3 (0-0.7) k/uL Basophils # 0.0 (0-0.2) k/uL Sodium 140 (137-145) mmol/L Potassium 4.6 (3.5-5.1) mmol/L Chloride 111 H (98-107) mmol/L Carbon Dioxide 19 L (22-30) mmol/L Anion Gap 10 mmol/L BUN 18 H (7-17) mg/dL Creatinine 0.65 (0.52-1.04) mg/dL Est GFR (CKD-EPI)AfAm >90 (>60 ml/min/1.73 sqM) Est GFR (CKD-EPI)NonAf >90 (>60 ml/min/1.73 sqM) Glucose 82 (74-99) mg/dL Plasma Lactic Acid Joce (0.7-2.0) mmol/L Calcium 10.1 (8.4-10.2) mg/dL Total Bilirubin 0.3 (0.2-1.3) mg/dL AST 29 (14-36) U/L ALT 11 (9-52) U/L Alkaline Phosphatase 64 (38-126) U/L Total Protein 7.2 (6.3-8.2) g/dL Albumin 4.3 (3.5-5.0) g/dL Urine Color Yellow Urine Appearance Clear (Clear) Urine pH 5.5 (5.0-8.0) Ur Specific Sullivan 1.027 (1.001-1.035) Urine Protein Negative (Negative) Urine Glucose (UA) Negative (Negative) Urine Ketones Negative (Negative) Urine Blood Negative (Negative) Urine Nitrite Negative (Negative) Urine Bilirubin Negative (Negative) Urine Urobilinogen <2.0 (<2.0) mg/dL Ur Leukocyte Esterase Moderate H (Negative) Urine RBC 2 (0-5) /hpf Urine WBC 17 H (0-5) /hpf Ur Squamous Epith Cells 5 H (0-4) /hpf Amorphous Sediment Rare H (None) /hpf Urine Mucus Rare H (None) /hpf 04/13/19 Range/Units 17:10 WBC (3.8-10.6) k/uL RBC (3.80-5.40) m/uL Hgb (11.4-16.0) gm/dL Hct (34.0-46.0) % MCV (80.0-100.0) fL MCH (25.0-35.0) pg MCHC (31.0-37.0) g/dL RDW (11.5-15.5) % Plt Count (150-450) k/uL Neutrophils % % Lymphocytes % % Monocytes % % Eosinophils % % Basophils % % Neutrophils # (1.3-7.7) k/uL Lymphocytes # (1.0-4.8) k/uL Monocytes # (0-1.0) k/uL Eosinophils # (0-0.7) k/uL Basophils # (0-0.2) k/uL Sodium (137-145) mmol/L Potassium (3.5-5.1) mmol/L Chloride (98-107) mmol/L Carbon Dioxide (22-30) mmol/L Anion Gap mmol/L BUN (7-17) mg/dL Creatinine (0.52-1.04) mg/dL Est GFR (CKD-EPI)AfAm (>60 ml/min/1.73 sqM) Est GFR (CKD-EPI)NonAf (>60 ml/min/1.73 sqM) Glucose (74-99) mg/dL Plasma Lactic Acid Joce 1.2 (0.7-2.0) mmol/L Calcium (8.4-10.2) mg/dL Total Bilirubin (0.2-1.3) mg/dL AST (14-36) U/L ALT (9-52) U/L Alkaline Phosphatase (38-126) U/L Total Protein (6.3-8.2) g/dL Albumin (3.5-5.0) g/dL Urine Color Urine Appearance (Clear) Urine pH (5.0-8.0) Ur Specific Sullivan (1.001-1.035) Urine Protein (Negative) Urine Glucose (UA) (Negative) Urine Ketones (Negative) Urine Blood (Negative) Urine Nitrite (Negative) Urine Bilirubin (Negative) Urine Urobilinogen (<2.0) mg/dL Ur Leukocyte Esterase (Negative) Urine RBC (0-5) /hpf Urine WBC (0-5) /hpf Ur Squamous Epith Cells (0-4) /hpf Amorphous Sediment (None) /hpf Urine Mucus (None) /hpf Disposition Clinical Impression: UTI (urinary tract infection) Disposition: ADMITTED IP TO THIS HOSP Condition: Stable Instructions (If sedation given, give patient instructions): Fever in Adults (ED) Additional Instructions: Up with a primary care physician. Rest, remain hydrated. Take antibiotics. Return to the emergency department if any alarming signs or symptoms occur. Prescriptions: Nitrofurantoin Monohyd/M-Cryst [Macrobid] 100 mg PO Q12HR #14 cap Is patient prescribed a controlled substance at d/c from ED?: No Referrals: Fran Thompson MD [Primary Care Provider] - 1-2 days Time of Disposition: 18:43
[2019-04-13 17:47] LABS: Basophils % (A) 0 %; Eosinophils # (A) 0.3 k/uL (0-0.7); Eosinophils % (A) 3 %; HCT 34.6 % (34.0-46.0); HGB 11.3 gm/dL (11.4-16.0); Lymphocytes # (A) 1.7 k/uL (1.0-4.8); Lymphocytes % (A) 18 %; MCH 28.2 pg (25.0-35.0); MCHC 32.7 g/dL (31.0-37.0); Mean Platelet Volume 6.7; Monocytes # (A) 0.5 k/uL (0-1.0); Monocytes % (A) 6 %; Neutrophils # (A) 6.5 k/uL (1.3-7.7); Neutrophils % (A) 72 %; Platelet Count 424 k/uL (150-450); RBC 4.02 m/uL (3.80-5.40); RDW 14.5 % (11.5-15.5); WBC 9.1 k/uL (3.8-10.6)
[2019-04-13 17:50] LABS: Amorphous Sediment,Urine Rare /hpf; Appearance,Urine Clear (Clear); Bilirubin,Urine Negative (Negative); Blood,Urine Negative (Negative); Color,Urine Yellow; Glucose,Urine (UA) Negative (Negative); Ketones,Urine Negative (Negative); Leukocyte Esterase,Urine Moderate (Negative); Mucus,Urine Rare /hpf; Nitrite,Urine Negative (Negative); PH, Urine 5.5 (5.0-8.0); Protein,Urine Negative (Negative); RBC,Urine 2 /hpf (0-5); Specific Gravity,Urine 1.027 (1.001-1.035); Squamous Epithelial Cell,Urine 5 /hpf (0-4); Urobilinogen,Urine <2.0 mg/dL (<2.0); WBC,Urine 17 /hpf (0-5)
[2019-04-13 17:53] LABS: MCV 86.1 fL (80.0-100.0)
[2019-04-13 17:56] LABS: ALT 11 U/L (9-52); AST 29 U/L (14-36); Albumin 4.3 g/dL (3.5-5.0); Alkaline Phosphatase 64 U/L (38-126); Anion Gap 10 mmol/L; Blood Urea Nitrogen 18 mg/dL (7-17); Calcium 10.1 mg/dL (8.4-10.2); Carbon Dioxide 19 mmol/L (22-30); Chloride 111 mmol/L (98-107); Glucose 82 mg/dL (74-99); Potassium 4.6 mmol/L (3.5-5.1); Sodium 140 mmol/L (137-145); Total Bilirubin 0.3 mg/dL (0.2-1.3); Total Protein 7.2 g/dL (6.3-8.2)
[2019-04-13 19:05] VITALS: BP 117/74; PULSE 77; TEMP 100
== END 2019-04-13 19:04 | disposition other institution (70) ==
LOC: EC 16:10
DX: N39.0 Urinary tract infection, site not specified (principal); E11.43 Type 2 diabetes mellitus with diabetic autonomic (poly)neuropathy; K31.84 Gastroparesis; E11.42 Type 2 diabetes mellitus with diabetic polyneuropathy; G90.1 Familial dysautonomia [Riley-Day]; M32.9 Systemic lupus erythematosus, unspecified; E06.3 Autoimmune thyroiditis; D51.0 Vitamin B12 deficiency anemia due to intrinsic factor deficiency; F31.9 Bipolar disorder, unspecified; Z88.1 Allergy status to other antibiotic agents; Z88.2 Allergy status to sulfonamides; Z88.7 Allergy status to serum and vaccine; Z88.8 Allergy status to other drugs, medicaments and biological substances; Z91.010 Allergy to peanuts; Z91.018 Allergy to other foods; Z91.048 Other nonmedicinal substance allergy status; Z79.01 Long term (current) use of anticoagulants; Z79.1 Long term (current) use of non-steroidal anti-inflammatories (NSAID); Z79.4 Long term (current) use of insulin; Z79.890 Hormone replacement therapy; Z79.899 Other long term (current) drug therapy; Z86.14 Personal history of Methicillin resistant Staphylococcus aureus infection; Z86.73 Personal history of transient ischemic attack (TIA), and cerebral infarction without residual deficits; Z86.69 Personal history of other diseases of the nervous system and sense organs; Z86.718 Personal history of other venous thrombosis and embolism; Z95.828 Presence of other vascular implants and grafts
CPT/HCPCS: 36415; 80053; 83605; 85025; 81001; 87040; 87086; 99284; 96365; J0696

== ENCOUNTER 2019-04-16 20:20 | Observation (INO) | payer MEDICARE, OTHER ==
[2019-04-16] MEDS ORDERED: SODIUM CHLORIDE 0.9% 1,000 ML IV STA ×2 (21:22)
[2019-04-16] MEDS ORDERED: ACETAMINOPHEN TAB 500 MG TAB PO STA (21:22)
[2019-04-16] MEDS ORDERED: SODIUM CHLORIDE 0.9% 500 ML 500 ML IV STA (21:22)
[2019-04-16] MEDS ORDERED: IBUPROFEN 600 MG TAB PO STA (21:22)
[2019-04-16 22:32] LABS: Basophils # (A) 0.1 k/uL (0-0.2); Basophils % (A) 0 %; Eosinophils # (A) 0.3 k/uL (0-0.7); Eosinophils % (A) 2 %; HCT 35.4 % (34.0-46.0); HGB 11.6 gm/dL (11.4-16.0); Lymphocytes # (A) 1.8 k/uL (1.0-4.8); Lymphocytes % (A) 14 %; MCH 28.4 pg (25.0-35.0); MCHC 32.9 g/dL (31.0-37.0); MCV 86.5 fL (80.0-100.0); Mean Platelet Volume 7.1; Monocytes # (A) 0.6 k/uL (0-1.0); Monocytes % (A) 4 %; Neutrophils % (A) 78 %; Platelet Count 463 k/uL (150-450); RBC 4.09 m/uL (3.80-5.40); RDW 14.5 % (11.5-15.5); WBC 12.8 k/uL (3.8-10.6)
[2019-04-16] MEDS ORDERED: PIPERACILLIN-TAZOBACTAM 3.375 GM in SODIUM CHLORIDE 0.9% 100 ML IVPB STA (22:42)
--- NOTE | 2019-04-16 22:47 | ED ---
Fever HPI - General Chief Complaint: Fever Stated Complaint: Fever, UTI Time Seen by Provider: 04/16/19 21:21 Source: patient, RN notes reviewed, old records reviewed Mode of arrival: ambulatory Limitations: no limitations - History of Present Illness Initial Comments: This is a 38-year-old female the ER for evaluation. Patient has known UTI. History of UTIs, with resistance. Patient states she does not feel well still feeling feverish, denying chest pain shortness breath cough or congestion or nausea vomiting or diarrhea. Patient is currently taking Bactrim with no improvement in symptoms MD Complaint: fever, weakness -: days(s) Temperature Source: subjective Context: recent antibiotic use Associated Symptoms: chills, myalgias, abdominal pain Treatments Prior to Arrival: antibiotics - Related Data Home Medications Medication Instructions Recorded Confirmed Rivaroxaban [Xarelto] 20 mg PO HS 03/09/17 04/16/19 tiZANidine [Zanaflex] 8 mg PO HS 03/09/17 04/16/19 Metoclopramide [Reglan] 10 mg PO [facility] 07/29/17 04/16/19 Metoprolol Succinate (ER) [Toprol 100 mg PO DAILY 10/24/17 04/16/19 XL] Fenofibrate 160 mg PO DAILY 09/01/18 04/16/19 Dexlansoprazole [Dexilant] 30 mg PO [facility] 12/04/18 04/16/19 Ferrous Sulfate [Iron (65 MG 325 mg PO DAILY 12/04/18 04/16/19 Elemental)] INSULIN ASPART (NovoLOG) [NovoLOG See Protocol SQ [facility] 12/04/18 04/16/19 (formulary)] Insulin Glargine [Lantus] 40 unit SQ 12/04/18 04/16/19 Loratadine 10 mg PO QAM 12/04/18 04/16/19 Losartan [Cozaar] 50 mg PO DAILY 12/04/18 04/16/19 tiZANidine [Zanaflex] 4 mg PO AC-BID 12/04/18 04/16/19 Levothyroxine Sodium [Synthroid] 100 mcg PO DAILY 01/16/19 04/16/19 Cyanocobalamin (Vitamin B-12) 2,000 mcg PO DAILY 01/22/19 04/16/19 [Vitamin B-12] Levothyroxine Sodium [Synthroid] 125 mcg PO DAILY 01/22/19 04/16/19 Meloxicam [Mobic] 15 mg PO DAILY 03/01/19 04/16/19 diphenhydrAMINE [Benadryl] 75 mg PO HS PRN 03/01/19 04/16/19 Butalb/APAP/Caff 50-325-40Mg 1 tab PO Q4H PRN 03/12/19 04/16/19 [Fioricet 50-325-40] Ondansetron HCl [Zofran] 8 mg PO Q6H PRN 03/12/19 04/16/19 Prochlorperazine Suppository 25 mg RECTAL BID PRN 03/12/19 04/16/19 [Compazine] Promethazine [Phenergan] 25 mg PO Q4H PRN 03/12/19 04/16/19 INSULIN ASPART (NovoLOG) [NovoLOG 7 unit SQ AC-TID 04/16/19 04/16/19 (formulary)] Sertraline [Zoloft] 200 mg PO DAILY 04/16/19 04/16/19 cloNIDine HCL [Catapres] 0.1 mg PO DAILY PRN 04/16/19 04/16/19 risperiDONE [RisperDAL] 0.5 mg PO HS 04/16/19 04/16/19 Previous Rx's Medication Instructions Recorded Gabapentin [Neurontin] 400 mg PO TID cap 03/07/19 Modafinil [Provigil] 200 mg PO DAILY tab 03/07/19 Topiramate [Topamax] 200 mg PO BID 30 Days #120 tab 03/07/19 cloNIDine HCL [Catapres] 0.1 mg PO BID 30 Days #60 tab 03/07/19 Albuterol Inhaler [Ventolin Hfa 1 - 2 puff INHALATION RT-Q6H PRN 03/12/19 Inhaler] #1 inhaler Nitrofurantoin Monohyd/M-Cryst 100 mg PO Q12HR #14 cap 04/13/19 [Macrobid] Allergies Allergy/AdvReac Type Severity Reaction Status Date / Time barium sulfate Allergy Anaphylaxis Verified 04/16/19 21:13 diphtheria, pertussis, Allergy Unknown Verified 04/16/19 21:13 tetanus vacc doxepin [Doxepin] Allergy Anaphylaxis Verified 04/16/19 21:13 ephedrine Allergy Unknown Verified 04/16/19 21:13 ertapenem [From Invanz] Allergy Rash/Hives Verified 04/16/19 21:13 influenza virus vaccine, Allergy severe Verified 04/16/19 21:13 specific swelling [Influenza Virus and hives Vacc,Specific] peanut oil AdvReac Severe Nausea & Verified 04/16/19 21:13 Vomiting,itching doxycycline AdvReac Nausea & Verified 04/16/19 21:13 Vomiting & Diarrhea peanut AdvReac Nausea & Verified 04/16/19 21:13 Vomiting Pertussis Vaccines AdvReac fever/seizu Verified 04/16/19 21:13 re pseudoephedrine AdvReac Chest Pain Verified 04/16/19 21:13 pseudoephedrine HCl AdvReac Chest Pain Verified 04/16/19 21:13 [From Sudafed] sulfamethoxazole AdvReac Nausea & Verified 04/16/19 21:13 [From Bactrim] Vomiting trimethoprim [From Bactrim] AdvReac Nausea & Verified 04/16/19 21:13 Vomiting Review of Systems ROS Statement: Those systems with pertinent positive or pertinent negative responses have been documented in the HPI. ROS Other: All systems not noted in ROS Statement are negative. Past Medical History Past Medical History: Chest Pain / Angina, CVA/TIA, Diabetes Mellitus, Deep Vein Thrombosis (DVT), Neurologic Disorder, Syncope, Thyroid Disorder Additional Past Medical History / Comment(s): STROKE LIKE EPISODE D/T MITOCHRONDIAL DISEASE HAD WORK UP DONE AT [facility]. Dysautonomia-progressive neurological disorder, lupus/LUPUS ANTICOAGULANTS, ana maria's disease, lymphedema Lt arm d/t DVTs , v-tach, pituitary microadenoma. patent foramen ovale, narcolepsy, gastropareis, IDDM type II, falls, orthostatic hypotension/syncope, migraines with hemiplegia, pernicious anemia, polycystic o varian syndrome, neuropathy bilateral legs/fee-mild, uti's. History of Any Multi-Drug Resistant Organisms: ESBL, MRSA Date of last positivie culture/infection: 03/09/17 MRSA/ 05/17/18 ESBL MDRO Source:: MRSA LEFT ARM,/ESBL URINE [facility] Past Surgical History: Ablation, Uterine Ablation Additional Past Surgical History / Comment(s): colonscopy/egd, angie, PORT-A -CATH INSERTION 04-28-18 Past Anesthesia/Blood Transfusion Reactions: No Reported Reaction Additional Past Anesthesia/Blood Transfusion Reaction / Comment(s): patient states "It takes a lot of anesthesia for my body to react". Pt has received blood in past without reaction. Past Psychological History: Bipolar, Depression Smoking Status: Never smoker Past Alcohol Use History: None Reported Past Drug Use History: None Reported - Past Family History Brother(s) Family Medical History: Diabetes Mellitus, Hyperlipidemia, Hypertension Additional Family Medical History / Comment(s): Patient states she has 1 brother with no major medical problems. Father Family Medical History: Diabetes Mellitus, Hyperlipidemia, Hypertension Additional Family Medical History / Comment(s): DAD IS 70 YEARS OLD. Patient states she does not have any contact with her father and does not know his medical history. Mother Family Medical History: CVA/TIA, Deep Vein Thrombosis (DVT) Additional Family Medical History / Comment(s): antiphospholipid antibody syndrome General Exam Limitations: no limitations General appearance: alert, in no apparent distress Head exam: Present: atraumatic, normocephalic, normal inspection Eye exam: Present: normal appearance, PERRL, EOMI. Absent: scleral icterus, conjunctival injection, periorbital swelling ENT exam: Present: normal exam, mucous membranes moist Neck exam: Present: normal inspection. Absent: tenderness, meningismus, lymphadenopathy Respiratory exam: Present: normal lung sounds bilaterally. Absent: respiratory distress, wheezes, rales, rhonchi, stridor Cardiovascular Exam: Present: regular rate, normal rhythm, normal heart sounds. Absent: systolic murmur, diastolic murmur, rubs, gallop, clicks GI/Abdominal exam: Present: soft, normal bowel sounds. Absent: distended, tenderness, guarding, rebound, rigid Extremities exam: Present: normal inspection, full ROM, normal capillary refill. Absent: tenderness, pedal edema, joint swelling, calf tenderness Back exam: Present: normal inspection Neurological exam: Present: alert, oriented X3, CN II-XII intact Psychiatric exam: Present: normal affect, normal mood Skin exam: Present: warm, dry, intact, normal color. Absent: rash Course Vital Signs 04/16/19 04/16/19 20:26 21:29 Temperature 99.1 F Pulse Rate 90 78 Respiratory 20 20 Rate Blood Pressure 123/81 131/68 O2 Sat by Pulse 98 99 Oximetry - Reevaluation(s) Reevaluation #1: 04/16/19 22:46 Medical record and prior ER visits are reviewed Reevaluation #2: 04/16/19 22:46 Patient's in no acute distress Medical Decision Making - Medical Decision Making 38 female the ER for evaluation fever, felt outpatient UTI treatment. Patient be admitted for IV antibiotics, cultures - Lab Data Result diagrams: 04/16/19 22:05 Lab Results 04/16/19 Range/Units 22:05 WBC 12.8 H (3.8-10.6) k/uL RBC 4.09 (3.80-5.40) m/uL Hgb 11.6 (11.4-16.0) gm/dL Hct 35.4 (34.0-46.0) % MCV 86.5 (80.0-100.0) fL MCH 28.4 (25.0-35.0) pg MCHC 32.9 (31.0-37.0) g/dL RDW 14.5 (11.5-15.5) % Plt Count 463 H (150-450) k/uL Neutrophils % 78 % Lymphocytes % 14 % Monocytes % 4 % Eosinophils % 2 % Basophils % 0 % Neutrophils # 10.0 H (1.3-7.7) k/uL Lymphocytes # 1.8 (1.0-4.8) k/uL Monocytes # 0.6 (0-1.0) k/uL Eosinophils # 0.3 (0-0.7) k/uL Basophils # 0.1 (0-0.2) k/uL - Radiology Data Radiology results: report reviewed (Chest x-rays negative for acute disease), image reviewed Disposition Clinical Impression: Urinary tract infection, Fever, Failure of outpatient treatment Disposition: ADMITTED IP TO THIS HOSP Condition: Fair Is patient prescribed a controlled substance at d/c from ED?: No Referrals: Fran Thompson MD [Primary Care Provider] - 1-2 days
[2019-04-16 22:51] LABS: ALT 20 U/L (9-52); AST 24 U/L (14-36); Albumin 4.6 g/dL (3.5-5.0); Alkaline Phosphatase 71 U/L (38-126); Anion Gap 12 mmol/L; Blood Urea Nitrogen 19 mg/dL (7-17); Calcium 10.2 mg/dL (8.4-10.2); Carbon Dioxide 20 mmol/L (22-30); Chloride 109 mmol/L (98-107); Glucose 117 mg/dL (74-99); Potassium 4.4 mmol/L (3.5-5.1); Sodium 141 mmol/L (137-145); Total Bilirubin 0.3 mg/dL (0.2-1.3); Total Protein 7.5 g/dL (6.3-8.2)
--- NOTE | 2019-04-16 23:47 | XR ---
INDICATION: Cough COMPARISON: CXR 03/12/19 FINDINGS: Frontal and lateral views of the chest are provided. There is a stable right-sided Port-A-Cath with tip in the internal jugular vein. Cardiac mediastinal and pulmonary vascularity are normal. The lungs are clear. There is no pleural effusion or pneumothorax. Regional skeleton appears intact. IMPRESSION: No acute cardiopulmonary disease.
[2019-04-16 23:55] LABS: Appearance,Urine Cloudy (Clear); Bilirubin,Urine Negative (Negative); Blood,Urine Negative (Negative); Color,Urine Yellow; Glucose,Urine (UA) Negative (Negative); Ketones,Urine Negative (Negative); Leukocyte Esterase,Urine Small (Negative); Mucus,Urine Rare /hpf; Nitrite,Urine Negative (Negative); Protein,Urine Negative (Negative); RBC,Urine 2 /hpf (0-5); Squamous Epithelial Cell,Urine 6 /hpf (0-4); Urobilinogen,Urine <2.0 mg/dL (<2.0); WBC,Urine 3 /hpf (0-5)
[2019-04-17] MEDS: SODIUM CHLORIDE 0.9% 1,000 ML IV SCH ×5 (00:07→23:29)
[2019-04-17 01:44] VITALS: BMI 41.5
[2019-04-17] MEDS ORDERED: PROMETHAZINE 25 MG TAB PO PRN (01:45)
[2019-04-17] MEDS ORDERED: BUTALB/APAP/CAFF 50-325-40MG TAB PO PRN (01:45)
--- NOTE | 2019-04-17 02:44 | P.HPIM ---
History of Present Illness H&P Date: 04/17/19 Chief Complaint: Fevers 38-year-old female with history of hypothyroid, diabetes, frequent UTIs. Patient presented to the ER today due to concerns regarding spikes of fevers. Patient presented 4 days ago to the ER with concerns regarding UTIs and fever she had a urine analysis and culture done at that time and was discharged on Macrobid however she continued spikes fever despite taking the antibiotic for which she grew concerned regarding possibility of bacteremia due to having a Mediport. Patient denies any urinary symptoms at this time denies any abnormal odor, discharge, vaginal discharge, frequency, hematuria, dysuria. Patient denies any abdominal pain nausea or vomiting denies any back pain. Denies any GI bleeding. Denies any cough shortness of breath chest pain sore throat runny nose. However patient continues to spike fever at home despite taking Mobic. She was told by her PCP to go to the ER if she is fever because she has a Mediport and there is risk of bacteremia. For which she came to the hospital in the ED she was given a toes of Zosyn. And cultures were taken Review of Systems Pertinent positives as noted in HPI. All other systems were reviewed and are negative Past Medical History Past Medical History: Chest Pain / Angina, CVA/TIA, Diabetes Mellitus, Deep Vein Thrombosis (DVT), Neurologic Disorder, Syncope, Thyroid Disorder Additional Past Medical History / Comment(s): STROKE LIKE EPISODE D/T MITOCHRONDIAL DISEASE HAD WORK UP DONE AT [facility]. Dysautonomia-progressive neurological disorder, lupus/LUPUS ANTICOAGULANTS, ana maria's disease, lymphedema Lt arm d/t DVTs , v-tach, pituitary microadenoma. patent foramen ovale, narcolepsy, gastropareis, IDDM type II, falls, orthostatic hypotension/syncope, migraines with hemiplegia, pernicious anemia, polycystic ovarian syndrome, neuropathy bilateral legs/feet - mild, uti's. History of Any Multi-Drug Resistant Organisms: ESBL, MRSA Date of last positivie culture/infection: 03/09/17 MRSA/ 05/17/18 ESBL MDRO Source:: MRSA LEFT ARM,/ESBL URINE ECOLI Past Surgical History: Uterine Ablation Additional Past Surgical History / Comment(s): colonscopy/egd, angie, PORT-A -CATH INSERTION 04-28-18 Past Anesthesia/Blood Transfusion Reactions: No Reported Reaction Additional Past Anesthesia/Blood Transfusion Reaction / Comment(s): patient states "It takes a lot of anesthesia for my body to react". Pt has received b lood in past without reaction. Past Psychological History: Bipolar, Depression Additional Psychological History / Comment(s): Single and lives with her mother. No experience. International travel. No tobacco or alcohol use Smoking Status: Never smoker Past Alcohol Use History: None Reported Additional Past Alcohol Use History / Comment(s): Patient is a lifelong nonsmoker. She denies any medical marijuana, marijuana, street drug or alcohol use. She resides with her mom. She can walk short distances and otherwise uses a wheelchair. She has a walker. She does not drive but usually gets appointments by Bus. She has history of suicide attempt in 2015 but states depression is stable. No animal exposures. Patient is single without children. Patient denies any family members with her genetic disorder. Past Drug Use History: None Reported - Past Family History Brother(s) Family Medical History: Diabetes Mellitus, Hyperlipidemia, Hypertension Additional Family Medical History / Comment(s): Patient states she has 1 brother with no major medical problems. Father Family Medical History: Diabetes Mellitus, Hyperlipidemia, Hypertension Additional Family Medical History / Comment(s): DAD IS 70 YEARS OLD. Patient states she does not have any contact with her father and does not know his medical history. Mother Family Medical History: CVA/TIA, Deep Vein Thrombosis (DVT) Additional Family Medical History / Comment(s): antiphospholipid antibody syndrome Medications and Allergies Home Medications Medication Instructions Recorded Confirmed Type Rivaroxaban [Xarelto] 20 mg PO HS 03/09/17 04/16/19 History tiZANidine [Zanaflex] 8 mg PO HS 03/09/17 04/16/19 History Metoclopramide [Reglan] 10 mg PO [facility] 07/29/17 04/16/19 History Metoprolol Succinate (ER) [Toprol 100 mg PO DAILY 10/24/17 04/16/19 History XL] Fenofibrate 160 mg PO DAILY 09/01/18 04/16/19 History Dexlansoprazole [Dexilant] 30 mg PO QA 12/04/18 04/16/19 History Ferrous Sulfate [Iron (65 MG 325 mg PO DAILY 12/04/18 04/16/19 History Elemental)] INSULIN ASPART (NovoLOG) [NovoLOG See Protocol SQ ACHS 12/04/18 04/16/19 History (formulary)] Insulin Glargine [Lantus] 40 unit SQ HS 12/04/18 04/16/19 History Loratadine 10 mg PO QAM 12/04/18 04/16/19 History Losartan [Cozaar] 50 mg PO DAILY 12/04/18 04/16/19 History tiZANidine [Zanaflex] 4 mg PO AC-BID 12/04/18 04/16/19 History Levothyroxine Sodium [Synthroid] 100 mcg PO DAILY 01/16/19 04/16/19 History Cyanocobalamin (Vitamin B-12) 2,000 mcg PO DAILY 01/22/19 04/16/19 History [Vitamin B-12] Levothyroxine Sodium [Synthroid] 125 mcg PO DAILY 01/22/19 04/16/19 History Meloxicam [Mobic] 15 mg PO DAILY 03/01/19 04/16/19 History diphenhydrAMINE [Benadryl] 75 mg PO HS PRN 03/01/19 04/16/19 History Gabapentin [Neurontin] 400 mg PO TID cap 03/07/19 04/16/19 Rx Modafinil [Provigil] 200 mg PO DAILY tab 03/07/19 04/16/19 Rx Topiramate [Topamax] 200 mg PO BID 30 Days #120 tab 03/07/19 04/16/19 Rx cloNIDine HCL [Catapres] 0.1 mg PO BID 30 Days #60 tab 03/07/19 04/16/19 Rx Albuterol Inhaler [Ventolin Hfa 1 - 2 puff INHALATION RT-Q6H PRN 03/12/19 04/16/19 Rx Inhaler] #1 inhaler Butalb/APAP/Caff 50-325-40Mg 1 tab PO Q4H PRN 03/12/19 04/16/19 History [Fioricet 50-325-40] Ondansetron HCl [Zofran] 8 mg PO Q6H PRN 03/12/19 04/16/19 History Prochlorperazine Suppository 25 mg RECTAL BID PRN 03/12/19 04/16/19 History [Compazine] Promethazine [Phenergan] 25 mg PO Q4H PRN 03/12/19 04/16/19 History Nitrofurantoin Monohyd/M-Cryst 100 mg PO Q12HR #14 cap 04/13/19 04/16/19 Rx [Macrobid] INSULIN ASPART (NovoLOG) [NovoLOG 7 unit SQ AC-TID 04/16/19 04/16/19 History (formulary)] Sertraline [Zoloft] 200 mg PO DAILY 04/16/19 04/16/19 History cloNIDine HCL [Catapres] 0.1 mg PO DAILY PRN 04/16/19 04/16/19 History risperiDONE [RisperDAL] 0.5 mg PO HS 04/16/19 04/16/19 History Allergies Allergy/AdvReac Type Severity Reaction Status Date / Time barium sulfate Allergy Anaphylaxis Verified 04/16/19 21:13 diphtheria, pertussis, Allergy Unknown Verified 04/16/19 21:13 tetanus vacc doxepin [Doxepin] Allergy Anaphylaxis Verified 04/16/19 21:13 ephedrine Allergy Unknown Verified 04/16/19 21:13 ertapenem [From Invanz] Allergy Rash/Hives Verified 04/16/19 21:13 influenza virus vaccine, Allergy severe Verified 04/16/19 21:13 specific swelling [Influenza Virus and hives Vacc,Specific] peanut oil AdvReac Severe Nausea & Verified 04/16/19 21:13 Vomiting,itching doxycycline AdvReac Nausea & Verified 04/16/19 21:13 Vomiting & Diarrhea peanut AdvReac Nausea & Verified 04/16/19 21:13 Vomiting Pertussis Vaccines AdvReac fever/seizu Verified 04/16/19 21:13 re pseudoephedrine AdvReac Chest Pain Verified 04/16/19 21:13 pseudoephedrine HCl AdvReac Chest Pain Verified 04/16/19 21:13 [From Sudafed] sulfamethoxazole AdvReac Nausea & Verified 04/16/19 21:13 [From Bactrim] Vomiting trimethoprim [From Bactrim] AdvReac Nausea & Verified 04/16/19 21:13 Vomiting Physical Exam Vitals: Vital Signs Temp Pulse Resp BP Pulse Ox 04/17/19 00:04 98.7 F 79 16 99/45 99 04/16/19 21:29 78 20 131/68 99 04/16/19 20:26 99.1 F 90 20 123/81 98 Intake and Output 04/16/19 04/16/19 04/17/19 14:59 22:59 06:59 Other: Weight 113.398 kg Constitutional: No acute distress, conversant, pleasant Eyes: Anicteric sclerae, moist conjunctiva, no lid-lag Pupils equal round reactive to light ENMT: NC/AT Oropharynx clear, no erythema, exudates Neck: Supple, FROM, no masses, or JVD No carotid bruits No thyromegaly Lungs: Clear to auscultation Clear to percussion Normal respiratory effort, no accessory muscle use Site of Mediport looks unremarkable no induration no erythema no drainage Cardiovascular: Heart regular in rate and rhythm, No murmurs, gallops, or rubs No peripheral edema Abdominal: Soft Nontender, no guarding, rebound or rigidity Abdomen moving with respiration Normoactive bowel sounds No hepatomegaly, No splenomegaly No palpable mass No abdominal wall hernia noted Skin: Normal temperature, tone, texture, turgor No induration No subcutaneous nodules No rash, lesions No ulcers Extremities: No digital cyanosis No clubbing Pedal pulses intact and symmetrical Radial pulses intact and symmetrical No calf tenderness Contractures and deformity of bilateral feet with eversion Psychiatric: Alert and oriented to person, place and time Appropriate affect fair judgment Neuro Muscles Strength 5/5 in all 4 extremities Sensation to light touch grossly present throughout Cranial nerves II-XII grossly intact No focal sensory deficits Lymphatics: no palpable cervical or supraclavicular , or inguinal lymph nodes Results CBC & Chem 7: 04/16/19 22:05 04/16/19 22:05 Labs: Abnormal Lab Results - Last 24 Hours (Table) 04/16/19 04/16/19 04/16/19 Range/Units 22:05 22:05 22:05 WBC 12.8 H (3.8-10.6) k/uL Plt Count 463 H (150-450) k/uL Neutrophils # 10.0 H (1.3-7.7) k/uL Chloride 109 H (98-107) mmol/L Carbon Dioxide 20 L (22-30) mmol/L BUN 19 H (7-17) mg/dL Glucose 117 H (74-99) mg/dL Plasma Lactic Acid Joce 2.2 H* (0.7-2.0) mmol/L Urine Appearance (Clear) Ur Leukocyte Esterase (Negative) Ur Squamous Epith Cells (0-4) /hpf Urine Mucus (None) /hpf 04/16/19 Range/Units 23:20 WBC (3.8-10.6) k/uL Plt Count (150-450) k/uL Neutrophils # (1.3-7.7) k/uL Chloride (98-107) mmol/L Carbon Dioxide (22-30) mmol/L BUN (7-17) mg/dL Glucose (74-99) mg/dL Plasma Lactic Acid Joce (0.7-2.0) mmol/L Urine Appearance Cloudy H (Clear) Ur Leukocyte Esterase Small H (Negative) Ur Squamous Epith Cells 6 H (0-4) /hpf Urine Mucus Rare H (None) /hpf Thrombosis Risk Factor Assmnt - Choose All That Apply Any of the Below Risk Factors Present?: Yes Each Factor Represents 1 point: Obesity (BMI >25), Swollen legs (current) Each Risk Factor Represents 3 Points: Family history of DVT/PE, History of DVT/PE, Positive Lupus Anticoagulant Other congenital or acquired thrombophilia - If yes, enter type in comment: No Thrombosis Risk Factor Assessment Total Risk Factor Score: 11 Thrombosis Risk Factor Assessment Level: High Risk Assessment and Plan Assessment: 38-year-old female with history of hypothyroid mitochondrial diseases diabetes, she has a Mediport inserted due to frequent UTIs and difficult IV access. Patient admitted under observation with anticipated length of stay less than 48 hours due to fevers to rule out bacteremia or urinary tract infection. Patient visited the ED 4 days ago with fevers and urinary discomfort, urine analysis was positive at that time however cultures were negative. Patient was using Macrobid at home however she continued to spike fevers at home and decided to come in today for further evaluation. Plan: Fevers rule out infectious process, concerns regarding UTI and bacteremia per patient Plan Patient was started on Zosyn in the ED Urine analysis and cultures were reviewed urine analysis done today is unremarkable Urine culture done on April 13, was negative. We'll discontinue antibiotics Follow-up cultures Monitor vital signs IV fluid hydration Chronic conditions Hypothyroid Diabetes History of DVT Continue with home meds Preformed a thorough record review from recent hospitalization *frequent admissions for UTI Surrogate decision-maker: Patient mother CODE STATUS: Full code Discussed with: Patient, ER, RN Anticipated discharge: <[address]: Home A total of 60 minutes was spent on the care of this complex patient more than 50% of the time was spent in counseling and care coordination.
[2019-04-17] MEDS: GABAPENTIN 400 MG CAP PO SCH ×4 (03:22→20:48)
[2019-04-17] MEDS: TOPIRAMATE 100 MG TAB PO SCH ×3 (03:22→20:48)
[2019-04-17] MEDS: tiZANidine 4 MG TAB PO SCH ×4 (03:23→20:48)
[2019-04-17] MEDS: RIVAROXABAN 20 MG TAB PO SCH ×2 (03:23→20:48)
[2019-04-17] MEDS: risperiDONE 0.5 MG TAB PO SCH ×2 (03:23→20:48)
[2019-04-17] MEDS: diphenhydrAMINE 25 MG CAP PO PRN ×2 (03:24→23:28)
[2019-04-17] MEDS: cloNIDine HCL 0.1 MG TAB PO SCH ×3 (03:24→20:48)
[2019-04-17] MEDS: LEVOTHYROXINE 125 MCG TAB PO SCH (05:30)
[2019-04-17] MEDS: LEVOTHYROXINE 100 MCG TAB PO SCH (05:30)
[2019-04-17 07:13] LABS: Glucose,Whole Blood 139 mg/dL (75-99)
[2019-04-17] MEDS ORDERED: METOCLOPRAMIDE 10 MG TAB PO SCH (07:30)
[2019-04-17] MEDS ORDERED: PIPERACILLIN-TAZOBACTAM 3.375 GM in SODIUM CHLORIDE 0.9% 100 ML IVPB SCH (08:00)
[2019-04-17] MEDS: FERROUS SULFATE 325 MG TAB PO SCH (08:15)
[2019-04-17] MEDS: LOSARTAN 50 MG TAB PO SCH (08:15)
[2019-04-17] MEDS: INSULIN ASPART (NovoLOG) 100 UNIT/ML VIAL SQ SCH ×7 (08:15→20:48)
[2019-04-17] MEDS: MELOXICAM 7.5 MG TAB PO SCH (08:15)
[2019-04-17] MEDS: LORATADINE 10 MG TAB PO SCH (08:16)
[2019-04-17] MEDS: FENOFIBRATE 160 MG TAB PO SCH (08:16)
[2019-04-17] MEDS: MODAFINIL 200 MG TAB PO SCH (08:16)
[2019-04-17] MEDS: PANTOPRAZOLE 40 MG TABLET PO SCH (08:16)
[2019-04-17] MEDS: METOPROLOL SUCCINATE (ER) 100 MG TAB.ER.24H PO SCH (08:16)
[2019-04-17] MEDS: SERTRALINE 100 MG TAB PO SCH (08:16)
[2019-04-17] MEDS ORDERED: TOPIRAMATE 100 MG TAB PO SCH (09:00)
[2019-04-17] MEDS ORDERED: GABAPENTIN 400 MG CAP PO SCH (09:00)
[2019-04-17] MEDS ORDERED: cloNIDine HCL 0.1 MG TAB PO SCH (09:00)
[2019-04-17 12:04] LABS: Glucose,Whole Blood 121 mg/dL (75-99)
--- NOTE | 2019-04-17 15:53 | P.PN ---
Subjective Progress Note Date: 04/17/19 (delayed charting seen at 1115) Principal diagnosis: fevers Patient is a 38-year-old female past medical history of hypothyroidism, diabetes, lupus, Emily's disease, and frequent urinary tract infections who presented to the ER with fevers. Initially the patient had presented to the ER 4 days ago and had a urinalysis done and was discharged home on Macrobid. She took this consistently over a 4 days period. She continued to spike fevers. She was concerned about possibility of bacteremia due to her Mediport. On arrival to the ER her vital signs within normal limits. Laboratory analysis showed a white blood cell count 12.8, carbon dioxide of 20, lactic acid 2.2, and urinalysis appeared bland with only 3 white blood cells per high-powered field. Review of initial urine from 04/13 showed 50-100,000 skin or urogenital radha. However it was felt patient likely had a urinary tract infection as those are her symptoms are not 04/13 white blood cell count was 9.1 but has since increased to 12.8. Blood cultures were sent and currently pending. Patient seen and examined at bedside. She is feeling much better than yesterday. She reports no more chills or riders. She is not having any dysuria. She denies any nausea, vomiting, diarrhea, or constipation. She states her anxiety and depression is well controlled. Objective - Vital Signs Vital signs: Vital Signs Temp 98.1 F 04/17/19 14:57 Pulse 61 04/17/19 14:57 Resp 16 04/17/19 14:57 BP 99/66 04/17/19 14:57 Pulse Ox 96 04/17/19 14:57 Intake & Output 04/16/19 04/17/19 04/17/19 18:59 06:59 18:59 Intake Total 400 640 Balance 400 640 Weight 113.398 kg Intake: Oral 400 640 Other: Voiding Method Toilet Toilet # Voids 2 2 - Exam General: Ill Appearing, no distress, appears at stated age, Obese Derm: warm, dry Head: atraumatic, normocephalic, symmetric Eyes: EOMI, no lid lag, anicteric sclera Mouth: no lip lesion, mucus membranes moist Cardiovascular: S1S2 reg, no murmur, positive posterior tibial pulse bilateral, Lungs: CTA bilateral, no rhonchi, no rales , no accessory muscle use Abdominal: soft, nontender to palpation, no guarding, no appreciable organomegaly Ext: no gross muscle atrophy, no edema, no contractures Neuro: CN II-XI grossly intact, no focal neuro deficits Psych: Alert, oriented, appropriate affect - Labs CBC & Chem 7: 04/16/19 22:05 04/16/19 22:05 Labs: Abnormal Lab Results - Last 24 Hours (Table) 04/16/19 04/16/19 04/16/19 Range/Units 22:05 22:05 22:05 WBC 12.8 H (3.8-10.6) k/uL Plt Count 463 H (150-450) k/uL Neutrophils # 10.0 H (1.3-7.7) k/uL Chloride 109 H (98-107) mmol/L Carbon Dioxide 20 L (22-30) mmol/L BUN 19 H (7-17) mg/dL Glucose 117 H (74-99) mg/dL POC Glucose (mg/dL) (75-99) mg/dL Plasma Lactic Acid Joce 2.2 H* (0.7-2.0) mmol/L Urine Appearance (Clear) Ur Leukocyte Esterase (Negative) Ur Squamous Epith Cells (0-4) /hpf Urine Mucus (None) /hpf 04/16/19 04/17/19 04/17/19 Range/Units 23:20 07:06 11:52 WBC (3.8-10.6) k/uL Plt Count (150-450) k/uL Neutrophils # (1.3-7.7) k/uL Chloride (98-107) mmol/L Carbon Dioxide (22-30) mmol/L BUN (7-17) mg/dL Glucose (74-99) mg/dL POC Glucose (mg/dL) 139 H 121 H (75-99) mg/dL Plasma Lactic Acid Joce (0.7-2.0) mmol/L Urine Appearance Cloudy H (Clear) Ur Leukocyte Esterase Small H (Negative) Ur Squamous Epith Cells 6 H (0-4) /hpf Urine Mucus Rare H (None) /hpf Microbiology - Last 24 Hours (Table) 04/16/19 23:20 Urine Culture - Preliminary Urine,Voided Assessment and Plan Assessment: Urinary tract infection, failed outpatient treatment, present on admission -Continue with Rocephin -Await urine culture, may be negative secondary to antibiotic exposure - IV fluids - blood cultures negative to date Diabetes mellitus type 2 -Continue his long-acting, fixed dose, and sliding scale -Follow blood sugars -Actively working as outpatient physician -Last A1c 7.3 Mitochondrial disorder with chronic pain syndrome -Continue with Zanaflex History of DVT in the past - xarelto Chronic: Pituitary microadenoma Patent foramen ovale Narcolepsy Gastroparesis Migraines Pernicious anemia Polycystic ovarian syndrome DVT prophylaxis: on xarelto Discussed with: patient, nursing Anticipated discharge: in AM Anticipated discharge place: home A total of 25 minutes was spent on the care of this complex patient more than 50% of the time was spent in counseling and care coordination.
[2019-04-17 17:23] LABS: Glucose,Whole Blood 159 mg/dL (75-99)
[2019-04-17 20:18] LABS: Glucose,Whole Blood 143 mg/dL (75-99)
[2019-04-17] MEDS: METOCLOPRAMIDE 10 MG TAB PO SCH (20:48)
[2019-04-17] MEDS ORDERED: tiZANidine 4 MG TAB PO SCH (21:00)
[2019-04-17] MEDS ORDERED: INSULIN DETEMIR (LEVEMIR) 100 UNIT/ML SYR SQ SCH (21:00)
[2019-04-17] MEDS ORDERED: RIVAROXABAN 20 MG TAB PO SCH (21:00)
[2019-04-17] MEDS ORDERED: risperiDONE 0.5 MG TAB PO SCH (21:00)
[2019-04-17 21:55] VITALS: RESP 18
[2019-04-18] MEDS: LEVOTHYROXINE 100 MCG TAB PO SCH (05:51)
[2019-04-18] MEDS: LEVOTHYROXINE 125 MCG TAB PO SCH (05:51)
[2019-04-18 05:56] VITALS: BP 113/77; PULSE 67; TEMP 98.1
[2019-04-18 07:28] LABS: Glucose,Whole Blood 81 mg/dL (75-99)
[2019-04-18] MEDS: INSULIN ASPART (NovoLOG) 100 UNIT/ML VIAL SQ SCH ×4 (07:58→12:32)
[2019-04-18] MEDS: FENOFIBRATE 160 MG TAB PO SCH (08:00)
[2019-04-18] MEDS: PANTOPRAZOLE 40 MG TABLET PO SCH (08:00)
[2019-04-18] MEDS: LORATADINE 10 MG TAB PO SCH (08:00)
[2019-04-18] MEDS: METOPROLOL SUCCINATE (ER) 100 MG TAB.ER.24H PO SCH (08:00)
[2019-04-18] MEDS: SERTRALINE 100 MG TAB PO SCH (08:01)
[2019-04-18] MEDS: cloNIDine HCL 0.1 MG TAB PO SCH (08:02)
[2019-04-18] MEDS: FERROUS SULFATE 325 MG TAB PO SCH (08:02)
[2019-04-18] MEDS: TOPIRAMATE 100 MG TAB PO SCH (08:02)
[2019-04-18] MEDS: LOSARTAN 50 MG TAB PO SCH (08:02)
[2019-04-18] MEDS: MELOXICAM 7.5 MG TAB PO SCH (08:03)
[2019-04-18] MEDS: MODAFINIL 200 MG TAB PO SCH (08:04)
[2019-04-18] MEDS: METOCLOPRAMIDE 10 MG TAB PO SCH ×2 (08:05→12:33)
[2019-04-18] MEDS: GABAPENTIN 400 MG CAP PO SCH (08:05)
[2019-04-18] MEDS: tiZANidine 4 MG TAB PO SCH (08:06)
[2019-04-18] MEDS: SODIUM CHLORIDE 0.9% 1,000 ML IV SCH (08:06)
[2019-04-18 12:08] LABS: Glucose,Whole Blood 152 mg/dL (75-99)
--- NOTE | 2019-04-18 12:23 | P.DS ---
Providers Date of admission: 04/16/19 22:42 Expected date of discharge: 04/18/19 Attending physician: Guzman Jarrell MD Primary care physician: Fran Thompson Hospital Course: Discharge Diagnosis: UTI, failed outpatient treatment DM 2, insulin requiring Mitochonidrial disorder Hx of DVT Pituitary microadenoma Patent foramen ovale Narcolepsy Gastroparesis Migraines Pernicious anemia Polycystic ovarian syndrome Hospital Course: Patient is a 38-year-old female past medical history of hypothyroidism, diabetes, lupus, Emily's disease, and frequent urinary tract infections who presented to the ER with fevers. Initially the patient had presented to the ER 4 days ago and had a urinalysis done and was discharged home on Macrobid. She took this consistently over a 4 days period. She continued to spike fevers. She was concerned about possibility of bacteremia due to her Mediport. On arrival to the ER her vital signs within normal limits. Labor atory analysis showed a white blood cell count 12.8, carbon dioxide of 20, lactic acid 2.2, and urinalysis appeared bland with only 3 white blood cells per high-powered field. Review of initial urine from 04/13 showed 50-100,000 skin or urogenital radha. However it was felt patient likely had a urinary tract infection as those are her symptoms are not 04/13 white blood cell count was 9.1 but had since increased to 12.8. Her repeat urine culture was negative. Blood cultures negative to date. She will complete a course of Vantin for 6 additional days. I recommended repeat CBC and UA in 7 days to ensure clearance of infection with hx of ESBL E. Coli. She will follow with Dr. Thompson in 2-[address] coley next week. Patient seen and examined at bedside. Feeling better, no new fevers overnight. + nausea, no diarrhea. Feeling good and wants to go home. Vital signs reviewed and stable. General: non toxic, no distress, appears at stated age Derm: warm, dry Head: atraumatic, normocephalic, symmetric Eyes: EOMI, no lid lag, anicteric sclera Mouth: no lip lesion, mucus membranes moist Cardiovascular: S1S2 reg, no murmur, positive posterior tibial pulse bilateral, Lungs: CTA bilateral, no rhonchi, no rales , no accessory muscle use Abdominal: soft, +tender to palpation suprapubic, no guarding, no appreciable organomegaly Ext: no gross muscle atrophy, no edema, no contractures Neuro: CN II-XI grossly intact, no focal neuro deficits Psych: Alert, oriented, appropriate affect A total of 25 minutes of time were spent preparing this complex discharge summary . Patient Condition at Discharge: Stable Plan - Discharge Summary New Discharge Prescriptions: New Cefpodoxime Proxetil [Vantin] 100 mg PO Q12HR #12 tab Continue tiZANidine [Zanaflex] 8 mg PO HS Rivaroxaban [Xarelto] 20 mg PO HS Metoclopramide [Reglan] 10 mg PO ACHS Metoprolol Succinate (ER) [Toprol XL] 100 mg PO DAILY Fenofibrate 160 mg PO DAILY INSULIN ASPART (NovoLOG) [NovoLOG (formulary)] See Protocol SQ ACHS Insulin Glargine [Lantus] 40 unit SQ HS Losartan [Cozaar] 50 mg PO DAILY tiZANidine [Zanaflex] 4 mg PO AC-BID Ferrous Sulfate [Iron (65 MG Elemental)] 325 mg PO DAILY Loratadine 10 mg PO QAM Dexlansoprazole [Dexilant] 30 mg PO QAM Levothyroxine Sodium [Synthroid] 100 mcg PO DAILY Levothyroxine Sodium [Synthroid] 125 mcg PO DAILY Cyanocobalamin (Vitamin B-12) [Vitamin B-12] 2,000 mcg PO DAILY diphenhydrAMINE [Benadryl] 75 mg PO HS PRN PRN Reason: Insomnia Meloxicam [Mobic] 15 mg PO DAILY cloNIDine HCL [Catapres] 0.1 mg PO BID 30 Days #60 tab Gabapentin [Neurontin] 400 mg PO TID cap Modafinil [Provigil] 200 mg PO DAILY tab Topiramate [Topamax] 200 mg PO BID 30 Days #120 tab Prochlorperazine Suppository [Compazine] 25 mg RECTAL BID PRN PRN Reason: Nausea Butalb/APAP/Caff 50-325-40Mg [Fioricet 50-325-40] 1 tab PO Q4H PRN PRN Reason: Migraine Headache Promethazine [Phenergan] 25 mg PO Q4H PRN PRN Reason: Nausea Ondansetron HCl [Zofran] 8 mg PO Q6H PRN PRN Reason: Nausea Albuterol Inhaler [Ventolin Hfa Inhaler] 1 - 2 puff INHALATION RT-Q6H PRN #1 inhaler PRN Reason: Cough risperiDONE [RisperDAL] 0.5 mg PO HS Sertraline [Zoloft] 200 mg PO DAILY cloNIDine HCL [Catapres] 0.1 mg PO DAILY PRN PRN Reason: HIGH BP INSULIN ASPART (NovoLOG) [NovoLOG (formulary)] 7 unit SQ AC-TID Discontinued Nitrofurantoin Monohyd/M-Cryst [Macrobid] 100 mg PO Q12HR #14 cap Discharge Medication List Rivaroxaban [Xarelto] 20 mg PO HS 03/09/17 [History] tiZANidine [Zanaflex] 8 mg PO HS 03/09/17 [History] Metoclopramide [Reglan] 10 mg PO ACHS 07/29/17 [History] Metoprolol Succinate (ER) [Toprol XL] 100 mg PO DAILY 10/24/17 [History] Fenofibrate 160 mg PO DAILY 09/01/18 [History] Dexlansoprazole [Dexilant] 30 mg PO QAM 12/04/18 [History] Ferrous Sulfate [Iron (65 MG Elemental)] 325 mg PO DAILY 12/04/18 [History] INSULIN ASPART (NovoLOG) [NovoLOG (formulary)] See Protocol SQ ACHS 12/04/18 [History] Insulin Glargine [Lantus] 40 unit SQ HS 12/04/18 [History] Loratadine 10 mg PO QAM 12/04/18 [History] Losartan [Cozaar] 50 mg PO DAILY 12/04/18 [History] tiZANidine [Zanaflex] 4 mg PO AC-BID 12/04/18 [History] Levothyroxine Sodium [Synthroid] 100 mcg PO DAILY 01/16/19 [History] Cyanocobalamin (Vitamin B-12) [Vitamin B-12] 2,000 mcg PO DAILY 01/22/19 [History] Levothyroxine Sodium [Synthroid] 125 mcg PO DAILY 01/22/19 [History] Meloxicam [Mobic] 15 mg PO DAILY 03/01/19 [History] diphenhydrAMINE [Benadryl] 75 mg PO HS PRN 03/01/19 [History] Gabapentin [Neurontin] 400 mg PO TID cap 03/07/19 [Rx] Modafinil [Provigil] 200 mg PO DAILY tab 03/07/19 [Rx] Topiramate [Topamax] 200 mg PO BID 30 Days #120 tab 03/07/19 [Rx] cloNIDine HCL [Catapres] 0.1 mg PO BID 30 Days #60 tab 03/07/19 [Rx] Albuterol Inhaler [Ventolin Hfa Inhaler] 1 - 2 puff INHALATION RT-Q6H PRN #1 inhaler 03/12/19 [Rx] Butalb/APAP/Caff 50-325-40Mg [Fioricet 50-325-40] 1 tab PO Q4H PRN 03/12/19 [History] Ondansetron HCl [Zofran] 8 mg PO Q6H PRN 03/12/19 [History] Prochlorperazine Suppository [Compazine] 25 mg RECTAL BID PRN 03/12/19 [History] Promethazine [Phenergan] 25 mg PO Q4H PRN 03/12/19 [History] INSULIN ASPART (NovoLOG) [NovoLOG (formulary)] 7 unit SQ AC-TID 04/16/19 [History] Sertraline [Zoloft] 200 mg PO DAILY 04/16/19 [History] cloNIDine HCL [Catapres] 0.1 mg PO DAILY PRN 04/16/19 [History] risperiDONE [RisperDAL] 0.5 mg PO HS 04/16/19 [History] Cefpodoxime Proxetil [Vantin] 100 mg PO Q12HR #12 tab 04/18/19 [Rx] Follow up Appointment(s)/Referral(s): Fran Thompson MD [Primary Care Provider] - 1-2 days Last Shelby MD [STAFF PHYSICIAN] - 1 Week Ambulatory/Diagnostic Orders: Complete Blood Count w/diff [LAB.AMB] Time Frame: 1 Week, Location: None Selected Urinalysis [LAB.AMB] Time Frame: 1 Week, Location: None Selected Activity/Diet/Wound Care/Special Instructions: Diet: consistent carb Activity as tolerated Repeat CBC And urine in 1 week to ensure clearance of infection
== END 2019-04-18 14:21 | disposition home or self-care (01) ==
LOC: EC 20:20 → 4MS4W 22:42
PROVIDERS: ADMIT Internal Medicine; ATTEND Internal Medicine
DX: N39.0 Urinary tract infection, site not specified (principal); E03.9 Hypothyroidism, unspecified; D68.62 Lupus anticoagulant syndrome; E88.40 Mitochondrial metabolism disorder, unspecified; G89.4 Chronic pain syndrome; E06.3 Autoimmune thyroiditis; G90.1 Familial dysautonomia [Riley-Day]; E11.42 Type 2 diabetes mellitus with diabetic polyneuropathy; Q21.1 Atrial septal defect; G47.419 Narcolepsy without cataplexy; E28.2 Polycystic ovarian syndrome; I95.1 Orthostatic hypotension; D35.2 Benign neoplasm of pituitary gland; G43.419 Hemiplegic migraine, intractable, without status migrainosus; I47.2 Ventricular tachycardia; D51.0 Vitamin B12 deficiency anemia due to intrinsic factor deficiency; E66.9 Obesity, unspecified; Z68.41 Body mass index [BMI] 40.0-44.9, adult; R22.43 Localized swelling, mass and lump, lower limb, bilateral; F41.9 Anxiety disorder, unspecified; F31.9 Bipolar disorder, unspecified; K31.84 Gastroparesis; I89.0 Lymphedema, not elsewhere classified; Z79.01 Long term (current) use of anticoagulants; Z79.4 Long term (current) use of insulin; Z79.890 Hormone replacement therapy; Z79.1 Long term (current) use of non-steroidal anti-inflammatories (NSAID); Z79.899 Other long term (current) drug therapy; Z88.2 Allergy status to sulfonamides; Z88.7 Allergy status to serum and vaccine; Z88.1 Allergy status to other antibiotic agents; Z91.041 Radiographic dye allergy status; Z91.010 Allergy to peanuts; Z88.8 Allergy status to other drugs, medicaments and biological substances; Z86.73 Personal history of transient ischemic attack (TIA), and cerebral infarction without residual deficits; Z87.440 Personal history of urinary (tract) infections; Z91.81 History of falling; Z16.12 Extended spectrum beta lactamase (ESBL) resistance; Z86.14 Personal history of Methicillin resistant Staphylococcus aureus infection; Z91.5 Personal history of self-harm; Z86.718 Personal history of other venous thrombosis and embolism; Z95.828 Presence of other vascular implants and grafts; Z82.49 Family history of ischemic heart disease and other diseases of the circulatory system; Z83.3 Family history of diabetes mellitus; Z83.49 Family history of other endocrine, nutritional and metabolic diseases; Z83.2 Family history of diseases of the blood and blood-forming organs and certain disorders involving the immune mechanism; Z82.3 Family history of stroke
CPT/HCPCS: 96361 ×3; 96365; 99285; 36415; 93005; 80053; 83605 ×2; 85025; 81001; 87040; 87086; 71046; G0378 ×3; J2543

== ENCOUNTER → 2019-06-14 | Outpatient (CLI) | payer MEDICARE, OTHER ==
--- NOTE | 2019-06-14 15:06 | MR ---
EXAMINATION TYPE: MR angio head wo/neck wo/w con DATE OF EXAM: 06/14/2019 COMPARISON: MRA head and neck December 31, 2017 HISTORY: Headache with dizziness and visual changes TECHNIQUE: Multiplanar, multisequence imaging of the neck is performed without and with IV contrast, patient is injected with 11.5 cc of gadolinium this for the study. Time of flight images focusing on the [place] were performed without contrast.. 2-D and 3-D postprocessing imaging is perform ed on independent workstation and reviewed.. FINDINGS: There is normal 3 vessel origin from the aortic arch. There is no significant stenosis in c ommon or internal carotid arteries bilaterally. No significant stenosis is seen in visualized portion of bilateral external carotid arteries. There is dominant right vertebral artery redemonstrated. Vertebral arteries are patent to basilar rianna ction. There are patent bilateral posterior communicating artery seen. There is no significant focal stenosis or aneurysmal change in the posterior circulation. Images of the anterior circulation show patent anterior communicating artery. There is patent but sma ll caliber left A1 segment. Improved caliber left A2 segment due to patent anterior communicating art neeta is redemonstrated. No significant focal stenosis or aneurysmal change is otherwise seen. IMPRESSION: 1. No new significant stenosis or aneurysmal change of level of the [place]. No significant stenosis in common or internal carotid arteries bilaterally. No significant change from prior studies.
--- NOTE | 2019-06-14 15:24 | MR ---
EXAMINATION TYPE: MR brain w con DATE OF EXAM: 06/14/2019 COMPARISON: Prior MRI brain December 31, 2017 HISTORY: Headache with dizziness and visual changes TECHNIQUE: Multiplanar, multisequence images of the brain and brainstem is performed with IV contrast, utilizing 11.5 mL intravenous Gadavist . FINDINGS: The ventricular system and cisternal spaces are normal in size and appearance. The brain volume is age appropriate. Midline structures demonstrate normal morphology. The craniocervical junction appears within normal limits. Post contrast images demonstrate no abnormal enhancement. The dural venous sinuses appear pa tent. IMPRESSION: Unremarkable postcontrast MRI imaging of the brain.
== END | disposition home or self-care (01) ==
LOC: RADMRIMAIN 13:45
PROVIDERS: ATTEND Nurse Practitioner Family
DX: R51 Headache (principal)
CPT/HCPCS: 70544; 70549; 70552; A9585

== ENCOUNTER 2019-06-16 17:05 | Emergency (ER) | payer MEDICARE, OTHER ==
--- NOTE | 2019-06-16 17:56 | ED ---
Female Urogenital HPI - General Chief complaint: Urogenital Stated complaint: LOWER BACK PAIN, POSS UTI Time Seen by Provider: 06/16/19 17:33 Source: patient Mode of arrival: ambulatory Limitations: no limitations - History of Present Illness Initial comments: Patient is a 38-year-old male presenting to emergency Department with a chief complaint of UTI symptoms. Patient reports a history of recurrent UTIs. Patient reports increased urgency, frequency or dysuria but denies vaginal discharge or bleeding. Patient denies hematuria, hematochezia or melena. Patient states that she took Pyridium earlier today. Patient has a history of neurogenic bladder. Patient denies fever, night sweats, chills or abdominal pain. Patient reports a history of dehydration secondary to gastroparesis. Patient is not sexually active and is not concerned for STDs. Patient denies taking any other medications to alleviate his symptoms. - Related Data Home Medications Medication Instructions Recorded Confirmed Rivaroxaban [Xarelto] 20 mg PO HS 03/09/17 06/12/19 tiZANidine [Zanaflex] 8 mg PO 03/09/17 06/12/19 Metoclopramide [Reglan] 10 mg PO [facility] 07/29/17 06/12/19 Metoprolol Succinate (ER) [Toprol 100 mg PO DAILY 10/24/17 06/12/19 XL] Fenofibrate 160 mg PO DAILY 09/01/18 06/12/19 Dexlansoprazole [Dexilant] 30 mg PO QAM 12/04/18 06/12/19 Ferrous Sulfate [Iron (65 MG 325 mg PO DAILY 12/04/18 06/12/19 Elemental)] INSULIN ASPART (NovoLOG) [NovoLOG See Protocol SQ [facility] 12/04/18 06/12/19 (formulary)] Insulin Glargine [Lantus] 40 unit SQ 12/04/18 06/12/19 Loratadine 10 mg PO QAM 12/04/18 06/12/19 Losartan [Cozaar] 50 mg PO DAILY 12/04/18 06/12/19 tiZANidine [Zanaflex] 4 mg PO AC-BID 12/04/18 06/12/19 Levothyroxine Sodium [Synthroid] 100 mcg PO DAILY 01/16/19 06/12/19 Cyanocobalamin (Vitamin B-12) 2,000 mcg PO DAILY 01/22/19 06/12/19 [Vitamin B-12] Levothyroxine Sodium [Synthroid] 125 mcg PO DAILY 01/22/19 06/12/19 Meloxicam [Mobic] 15 mg PO DAILY 03/01/19 06/12/19 diphenhydrAMINE [Benadryl] 75 mg PO HS PRN 03/01/19 06/12/19 Butalb/APAP/Caff 50-325-40Mg 1 tab PO Q4H PRN 03/12/19 06/12/19 [Fioricet 50-325-40] Ondansetron HCl [Zofran] 8 mg PO Q6H PRN 03/12/19 06/12/19 Prochlorperazine Suppository 25 mg RECTAL BID PRN 03/12/19 06/12/19 [Compazine] Promethazine [Phenergan] 25 mg PO Q4H PRN 03/12/19 06/12/19 INSULIN ASPART (NovoLOG) [NovoLOG 7 unit SQ AC-TID 04/16/19 06/12/19 (formulary)] Sertraline [Zoloft] 200 mg PO DAILY 04/16/19 06/12/19 cloNIDine HCL [Catapres] 0.1 mg PO DAILY PRN 04/16/19 06/12/19 risperiDONE [RisperDAL] 0.5 mg PO HS 04/16/19 06/12/19 Previous Rx's Medication Instructions Recorded Gabapentin [Neurontin] 400 mg PO TID cap 03/07/19 Modafinil [Provigil] 200 mg PO DAILY tab 03/07/19 Topiramate [Topamax] 200 mg PO BID 30 Days #120 tab 03/07/19 cloNIDine HCL [Catapres] 0.1 mg PO BID 30 Days #60 tab 03/07/19 Albuterol Inhaler [Ventolin Hfa 1 - 2 puff INHALATION RT-Q6H PRN 03/12/19 Inhaler] #1 inhaler Cefpodoxime Proxetil [Vantin] 100 mg PO Q12HR #12 tab 04/18/19 Allergies Allergy/AdvReac Type Severity Reaction Status Date / Time barium sulfate Allergy Anaphylaxis Verified 06/16/19 17:13 diphtheria, pertussis, Allergy Unknown Verified 06/16/19 17:13 tetanus vacc doxepin [Doxepin] Allergy Anaphylaxis Verified 06/16/19 17:13 ephedrine Allergy Unknown Verified 06/16/19 17:13 ertapenem [From Invanz] Allergy Rash/Hives Verified 06/16/19 17:13 influenza virus vaccine, Allergy severe Verified 06/16/19 17:13 specific swelling [Influenza Virus and hives Vacc,Specific] peanut oil AdvReac Severe Nausea & Verified 06/16/19 17:13 Vomiting,itching doxycycline AdvReac Nausea & Verified 06/16/19 17:13 Vomiting & Diarrhea peanut AdvReac Nausea & Verified 06/16/19 17:13 Vomiting Pertussis Vaccines AdvReac fever/seizu Verified 06/16/19 17:13 re pseudoephedrine AdvReac Chest Pain Verified 06/16/19 17:13 pseudoephedrine HCl AdvReac Chest Pain Verified 06/16/19 17:13 [From Sudafed] sulfamethoxazole AdvReac Nausea & Verified 06/16/19 17:13 [From Bactrim] Vomiting trimethoprim [From Bactrim] AdvReac Nausea & Verified 06/16/19 17:13 Vomiting Review of Systems ROS Statement: Those systems with pertinent positive or pertinent negative responses have been documented in the HPI. ROS Other: All systems not noted in ROS Statement are negative. Past Medical History Past Medical History: Chest Pain / Angina, CVA/TIA, Diabetes Mellitus, Deep Vein Thrombosis (DVT), Neurologic Disorder, Syncope, Thyroid Disorder Additional Past Medical History / Comment(s): STROKE LIKE EPISODE D/T MITOCHRONDIAL DISEASE HAD WORK UP DONE AT [facility]. Dysautonomia-progressive neurological disorder, lupus/LUPUS ANTICOAGULANTS, ana maria's disease, lymphedema Lt arm d/t DVTs , v-tach, pituitary microadenoma. patent foramen ovale, narcolepsy, gastropareis, IDDM type II, falls, orthostatic hypotension/s yncope, migraines with hemiplegia, pernicious anemia, polycystic ovarian syndrome, neuropathy bilateral legs/feet - mild, uti's. History of Any Multi-Drug Resistant Organisms: ESBL, MRSA Date of last positivie culture/infection: 03/09/17 MRSA/ 05/17/18 ESBL MDRO Source:: MRSA LEFT ARM,/ESBL URINE ECOLI Past Surgical History: Uterine Ablation Additional Past Surgical History / Comment(s): colonscopy/egd, angie, PORT-A -CATH INSERTION 04-28-18 Past Anesthesia/Blood Transfusion Reactions: No Reported Reaction Additional Past Anesthesia/Blood Transfusion Reaction / Comment(s): patient states "It takes a lot of anesthesia for my body to react". Pt has received blood in past without reaction. Past Psychological History: Bipolar, Depression Smoking Status: Never smoker Past Alcohol Use History: None Reported Past Drug Use History: None Reported - Past Family History Brother(s) Family Medical History: Diabetes Mellitus, Hyperlipidemia, Hypertension Additional Family Medical History / Comment(s): Patient states she has 1 brother with no major medical problems. Father Family Medical History: Diabetes Mellitus, Hyperlipidemia, Hypertension Additional Family Medical History / Comment(s): DAD IS 70 YEARS OLD. Patient states she does not have any contact with her father and does not know his medical history. Mother Family Medical History: CVA/TIA, Deep Vein Thrombosis (DVT) Additional Family Medical History / Comment(s): antiphospholipid antibody syndrome General Exam Limitations: no limitations General appearance: alert, in no apparent distress Head exam: Present: atraumatic, normocephalic, normal inspection Eye exam: Present: normal appearance, PERRL, EOMI Pupils: Present: normal accommodation ENT exam: Present: normal exam, mucous membranes moist, normal external ear exam Neck exam: Present: normal inspection, full ROM Respiratory exam: Present: normal lung sounds bilaterally Cardiovascular Exam: Present: normal rhythm, tachycardia, normal heart sounds GI/Abdominal exam: Present: soft. Absent: tenderness, guarding, rebound Extremities exam: Present: normal inspection, full ROM Back exam: Present: normal inspection, full ROM, CVA tenderness (R) Neurological exam: Present: alert, oriented X3 Psychiatric exam: Present: normal affect, normal mood Skin exam: Present: warm, intact, normal color Course Vital Signs 06/16/19 06/16/19 17:12 20:41 Temperature 98.7 F 98.3 F Pulse Rate 127 H 94 Respiratory 20 18 Rate Blood Pressure 144/81 140/77 O2 Sat by Pulse 96 98 Oximetry Medical Decision Making - Medical Decision Making Patient is a 38-year-old female presenting to emergency Department with UTI symptoms. UA is completely unremarkable. CBC does indicate mild leukocytosis otherwise unremarkable. Patient was offered a pelvic exam but she declined. No antibiotic treatment for UTI is warranted at this time. Patient advised to return to emergency department if she develops fever, abdominal pain, nausea, vomiting or hematuria. Patient advised to follow-up with urology regarding her recurrent UTIs. Strict return parameters were thoroughly discussed with patient was understanding and agreeable. Case discussed with physician. - Lab Data Result diagrams: 06/16/19 18:10 06/16/19 18:10 Lab Results 06/16/19 06/16/19 06/16/19 Range/Units 18:10 18:10 18:10 WBC 13.3 H (3.8-10.6) k/uL RBC 4.64 (3.80-5.40) m/uL Hgb 13.2 (11.4-16.0) gm/dL Hct 40.6 (34.0-46.0) % MCV 87.6 (80.0-100.0) fL MCH 28.5 (25.0-35.0) pg MCHC 32.6 (31.0-37.0) g/dL RDW 14.8 (11.5-15.5) % Plt Count 461 H (150-450) k/uL Sodium 143 (137-145) mmol/L Potassium 5.1 (3.5-5.1) mmol/L Chloride 108 H (98-107) mmol/L Carbon Dioxide 19 L (22-30) mmol/L Anion Gap 16 mmol/L BUN 17 (7-17) mg/dL Creatinine 0.66 (0.52-1.04) mg/dL Est GFR (CKD-EPI)AfAm >90 (>60 ml/min/1.73 sqM) Est GFR (CKD-EPI)NonAf >90 (>60 ml/min/1.73 sqM) Glucose 138 H (74-99) mg/dL Calcium 10.3 H (8.4-10.2) mg/dL Total Bilirubin 0.7 (0.2-1.3) mg/dL AST 50 H (14-36) U/L ALT 20 (9-52) U/L Alkaline Phosphatase 65 (38-126) U/L Total Protein 8.5 H (6.3-8.2) g/dL Albumin 5.0 (3.5-5.0) g/dL Urine Color Dark Brown Urine Appearance Clear (Clear) Urine pH 5.0 (5.0-8.0) Ur Specific [place] 1.014 (1.001-1.035) Urine Protein Negative (Negative) Urine Glucose (UA) Negative (Negative) Urine Ketones Negative (Negative) Urine Blood Negative (Negative) Urine Nitrite Negative (Negative) Urine Bilirubin Negative (Negative) Urine Urobilinogen <2.0 (<2.0) mg/dL Ur Leukocyte Esterase Negative (Negative) Disposition Clinical Impression: UTI symptoms Disposition: HOME SELF-CARE Condition: Stable Instructions (If sedation given, give patient instructions): Urinary Tract Infection in Women (ED) Additional Instructions: Please follow up with urology. Please return to emergency department if symptoms worsen. Is patient prescribed a controlled substance at d/c from ED?: No Referrals: Fran Thompson MD [Primary Care Provider] - 1-2 days Last Shelby MD [STAFF PHYSICIAN] - 1-2 days Time of Disposition: 20:28
[2019-06-16 18:24] LABS: HCT 40.6 % (34.0-46.0); HGB 13.2 gm/dL (11.4-16.0); MCH 28.5 pg (25.0-35.0); MCHC 32.6 g/dL (31.0-37.0); MCV 87.6 fL (80.0-100.0); Mean Platelet Volume 7.4; Platelet Count 461 k/uL (150-450); RBC 4.64 m/uL (3.80-5.40); RDW 14.8 % (11.5-15.5); WBC 13.3 k/uL (3.8-10.6)
[2019-06-16 18:27] LABS: Appearance,Urine Clear (Clear); Bilirubin,Urine Negative (Negative); Blood,Urine Negative (Negative); Color,Urine Dark Brown; Glucose,Urine (UA) Negative (Negative); Ketones,Urine Negative (Negative); Leukocyte Esterase,Urine Negative (Negative); Nitrite,Urine Negative (Negative); Protein,Urine Negative (Negative); Specific Gravity,Urine 1.014 (1.001-1.035); Urobilinogen,Urine <2.0 mg/dL (<2.0)
[2019-06-16 18:34] LABS: ALT 20 U/L (9-52); AST 50 U/L (14-36); African American GFR (CKD) >90 (>60 ml/min/1.73 sqM); Alkaline Phosphatase 65 U/L (38-126); Anion Gap 16 mmol/L; Blood Urea Nitrogen 17 mg/dL (7-17); Calcium 10.3 mg/dL (8.4-10.2); Carbon Dioxide 19 mmol/L (22-30); Chloride 108 mmol/L (98-107); Glucose 138 mg/dL (74-99); Sodium 143 mmol/L (137-145); Total Bilirubin 0.7 mg/dL (0.2-1.3); Total Protein 8.5 g/dL (6.3-8.2)
[2019-06-16 18:44] LABS: Potassium 5.1 mmol/L (3.5-5.1)
[2019-06-16 20:42] VITALS: BP 140/77; PULSE 94; RESP 18; TEMP 98.3
== END 2019-06-16 20:42 | disposition home or self-care (01) ==
LOC: EC 17:05
DX: R39.9 Unspecified symptoms and signs involving the genitourinary system (principal); M54.5 Low back pain; D72.829 Elevated white blood cell count, unspecified; R00.0 Tachycardia, unspecified; E07.9 Disorder of thyroid, unspecified; E11.40 Type 2 diabetes mellitus with diabetic neuropathy, unspecified; F31.9 Bipolar disorder, unspecified; Z79.4 Long term (current) use of insulin; Z79.890 Hormone replacement therapy; Z79.1 Long term (current) use of non-steroidal anti-inflammatories (NSAID); Z79.899 Other long term (current) drug therapy; Z79.01 Long term (current) use of anticoagulants; Z91.048 Other nonmedicinal substance allergy status; Z88.7 Allergy status to serum and vaccine; Z88.8 Allergy status to other drugs, medicaments and biological substances; Z91.010 Allergy to peanuts; Z88.1 Allergy status to other antibiotic agents; Z88.2 Allergy status to sulfonamides
CPT/HCPCS: 36415; 80053; 81003; 85027; 87086; 99283

== ENCOUNTER → 2019-07-16 | Day surgery (SDC) | payer MEDICARE, OTHER ==
[2019-07-12 15:09] VITALS: BMI 41.5
[~2019-07-16] MED LIST changes: +IOPAMIDOL-250 50ML BTL IV ONE; +SODIUM CHLORIDE 0.9% 1,000 ML IV SCH; -SODIUM CHLORIDE 0.9% 500 ML 500 ML IV SCH
--- NOTE | 2019-07-17 09:47 | IR ---
EXAMINATION TYPE: IR fluoro guided needle place HISTORY: Malfunctioning Mediport Findings: Small amount of aspiration could be obtained. There is gentle instillation of contrast extravasation at the level the mid portion of the catheter there are overlying the soft tissues of the right neck. Exam was terminated. Report was called to the referring clinician over the telephone. IMPRESSION: 1. Contrast extravasation midportion of the Mediport catheter suggestive of catheter injury. Report c alled to referring clinician.
== END | disposition home or self-care (01) ==
LOC: CATHCVL 09:38
PROVIDERS: ATTEND Radiology Diagnostic Radiology
DX: T82.534A Leakage of infusion catheter, initial encounter (principal); Y71.8 Miscellaneous cardiovascular devices associated with adverse incidents, not elsewhere classified
CPT/HCPCS: 36598; Q9966

== ENCOUNTER 2019-07-27 14:32 | Emergency (ER) | payer MEDICARE, OTHER ==
[2019-07-27] MEDS ORDERED: SODIUM CHLORIDE 0.9% 1,000 ML IV STA (15:27)
[2019-07-27 16:24] LABS: Basophils % (A) 0 %; Eosinophils # (A) 0.2 k/uL (0-0.7); Eosinophils % (A) 2 %; HCT 36.6 % (34.0-46.0); HGB 11.8 gm/dL (11.4-16.0); Lymphocytes # (A) 1.3 k/uL (1.0-4.8); Lymphocytes % (A) 14 %; MCH 27.5 pg (25.0-35.0); MCHC 32.2 g/dL (31.0-37.0); MCV 85.5 fL (80.0-100.0); Mean Platelet Volume 6.5; Monocytes # (A) 0.4 k/uL (0-1.0); Monocytes % (A) 4 %; Neutrophils # (A) 7.5 k/uL (1.3-7.7); Neutrophils % (A) 78 %; Platelet Count 399 k/uL (150-450); RBC 4.28 m/uL (3.80-5.40); RDW 14.4 % (11.5-15.5); WBC 9.6 k/uL (3.8-10.6)
[2019-07-27 16:29] LABS: Appearance,Urine Clear (Clear); Bacteria,Urine Occasional /hpf; Bilirubin,Urine Negative (Negative); Blood,Urine Small (Negative); Color,Urine Yellow; Glucose,Urine (UA) Negative (Negative); Ketones,Urine Negative (Negative); Leukocyte Esterase,Urine Negative (Negative); Mucus,Urine Rare /hpf; Nitrite,Urine Negative (Negative); PH, Urine 5.5 (5.0-8.0); Protein,Urine Negative (Negative); RBC,Urine 1 /hpf (0-5); Specific Gravity,Urine 1.014 (1.001-1.035); Squamous Epithelial Cell,Urine 1 /hpf (0-4); Urobilinogen,Urine <2.0 mg/dL (<2.0)
[2019-07-27 16:34] LABS: ALT 23 U/L (9-52); AST 23 U/L (14-36); African American GFR (CKD) >90 (>60 ml/min/1.73 sqM); Albumin 4.7 g/dL (3.5-5.0); Alkaline Phosphatase 67 U/L (38-126); Anion Gap 14 mmol/L; Blood Urea Nitrogen 16 mg/dL (7-17); Carbon Dioxide 20 mmol/L (22-30); Chloride 109 mmol/L (98-107); Creatine Kinase 83 U/L (30-135); Glucose 119 mg/dL (74-99); Potassium 4.3 mmol/L (3.5-5.1); Sodium 143 mmol/L (137-145); Total Bilirubin 0.3 mg/dL (0.2-1.3); Total Protein 7.8 g/dL (6.3-8.2)
--- NOTE | 2019-07-27 16:37 | ED ---
General Adult HPI - General Chief complaint: Weakness Stated complaint: muscle weakness, muscle pain Time Seen by Provider: 07/27/19 15:07 Source: patient Mode of arrival: wheelchair Limitations: no limitations - History of Present Illness Initial comments: Patient is a 39-year-old female presenting to the emergency department complaints of muscle weakness has been increasing over the last 3 days. Patient has history of mitochondrial disease. Patient states she normally has muscle weakness but states the past few days she feels it is increasing. Patient states she is hard time just using her arms and lifting them. Patient only uses a wheelchair due to lower extremity weakness. Patient denies any fever, chills, abdominal pain, chest pain,, nausea, vomiting, diarrhea. She has no other complaints at this time. Vital signs are stable upon arrival, afebrile. - Related Data Home Medications Medication Instructions Recorded Confirmed RX: Rivaroxaban [Xarelto] 20 mg PO HS 03/09/17 07/16/19 RX: tiZANidine [Zanaflex] 8 mg PO HS 03/09/17 07/12/19 RX: Metoclopramide [Reglan] [address] [facility] 07/29/17 07/16/19 RX: Metoprolol Succinate (ER) 50 mg PO DAILY 10/24/17 07/16/19 [Toprol XL] RX: Fenofibrate 160 mg PO HS 09/01/18 07/16/19 RX: Dexlansoprazole [Dexilant] 30 mg PO QAM 12/04/18 07/16/19 RX: INSULIN ASPART (NovoLOG) See Protocol SQ [facility] 12/04/18 07/16/19 [NovoLOG (formulary)] RX: Insulin Glargine [Lantus] 40 unit SQ 12/04/18 07/16/19 RX: Losartan [Cozaar] 25 mg PO DAILY 12/04/18 07/16/19 RX: tiZANidine [Zanaflex] 4 mg PO AC-BID 12/04/18 07/12/19 RX: Levothyroxine Sodium 100 mcg PO DAILY 01/16/19 07/16/19 [Synthroid] RX: Cyanocobalamin (Vitamin B-12) 2,000 mcg PO DAILY 01/22/19 07/16/19 [Vitamin B-12] RX: Levothyroxine Sodium 125 mcg PO DAILY 01/22/19 07/16/19 [Synthroid] RX: Meloxicam [Mobic] 15 mg PO DAILY 03/01/19 07/16/19 RX: diphenhydrAMINE [Benadryl] 75 mg PO HS PRN 03/01/19 07/12/19 RX: Butalb/APAP/Caff 50-325-40Mg 1 tab PO Q4H PRN 03/12/19 07/16/19 [Fioricet 50-325-40] RX: Ondansetron HCl [Zofran] 8 mg PO Q6H PRN 03/12/19 07/16/19 RX: Prochlorperazine Suppository 25 mg RECTAL BID PRN 03/12/19 07/16/19 [Compazine] RX: Promethazine [Phenergan] 25 mg PO Q4-6H PRN 03/12/19 07/16/19 RX: Sertraline [Zoloft] 200 mg PO DAILY 04/16/19 07/16/19 RX: cloNIDine HCL [Catapres] 0.1 mg PO DAILY PRN 04/16/19 07/12/19 RX: risperiDONE [RisperDAL] 0.5 mg PO HS 04/16/19 07/12/19 traMADol HCL [Ultram] 50 mg PO BID PRN 06/28/19 07/12/19 Acetyl L-Carnitine 800 mg PO DAILY 07/12/19 07/16/19 Cetirizine HCl [Zyrtec] 10 mg PO DAILY 07/12/19 07/16/19 Cholecalciferol (Vitamin D3) 2,000 unit PO DAILY 07/12/19 07/16/19 [Vitamin D3] DULoxetine HCL [Cymbalta] 30 mg PO BID 07/12/19 07/16/19 Magnesium Gluconate [Magonate] 500 mg PO HS 07/12/19 07/16/19 Metoprolol Succinate [Toprol Xl] 50 mg PO HS PRN 07/12/19 07/12/19 RX: Alpha Lipoic Acid 400 mg PO DAILY 07/12/19 07/16/19 RX: Methenamine Hippurate 1 gm PO BID 07/12/19 07/16/19 RX: Vitamin B Complex 1 each PO DAILY 07/12/19 07/16/19 Thiamine [Vitamin B-1] 250 mg PO DAILY 07/12/19 07/16/19 Trimethoprim [Trimpex] 100 mg PO HS 07/12/19 07/16/19 Ubidecarenone [Co Q-10] 100 mg PO BID 07/12/19 07/16/19 Vitamin E (Dl,Tocopheryl Acet) 400 unit PO DAILY 07/12/19 07/16/19 [Vitamin E] levOCARNitine [l-Carnitine] 1,000 mg PO DAILY 07/12/19 07/16/19 Previous Rx's Medication Instructions Recorded RX: Gabapentin [Neurontin] 400 mg PO TID cap 03/07/19 RX: Modafinil [Provigil] 200 mg PO DAILY tab 03/07/19 RX: Topiramate [Topamax] 200 mg PO BID 30 Days #120 tab 03/07/19 RX: cloNIDine HCL [Catapres] 0.1 mg PO BID 30 Days #60 tab 03/07/19 Allergies Allergy/AdvReac Type Severity Reaction Status Date / Time barium sulfate Allergy Anaphylaxis Verified 07/27/19 14:59 doxepin [Doxepin] Allergy Anaphylaxis Verified 07/27/19 14:59 ephedrine Allergy Unknown Verified 07/27/19 14:59 ertapenem [From Invanz] Allergy Rash/Hives Verified 07/27/19 14:59 influenza virus vaccine, Allergy severe Verified 07/27/19 14:59 specific swelling [Influenza Virus and hives Vacc,Specific] peanut oil AdvReac Severe Nausea & Verified 07/27/19 14:59 Vomiting,itching doxycycline AdvReac Nausea & Verified 07/27/19 14:59 Vomiting & Diarrhea peanut AdvReac Nausea & Verified 07/27/19 14:59 Vomiting Pertussis Vaccines AdvReac fever/seizu Verified 07/27/19 14:59 re pseudoephedrine AdvReac Chest Pain Verified 07/27/19 14:59 pseudoephedrine HCl AdvReac Chest Pain Verified 07/27/19 14:59 [From Sudafed] sulfamethoxazole AdvReac Nausea & Verified 07/27/19 14:59 [From Bactrim] Vomiting trimethoprim [From Bactrim] AdvReac Nausea & Verified 07/27/19 14:59 Vomiting Review of Systems ROS Statement: Those systems with pertinent positive or pertinent negative responses have been documented in the HPI. ROS Other: All systems not noted in ROS Statement are negative. Past Medical History Past Medical History: Chest Pain / Angina, CVA/TIA, Diabetes Mellitus, Deep Vein Thrombosis (DVT), Neurologic Disorder, Syncope, Thyroid Disorder Additional Past Medical History / Comment(s): STROKE LIKE EPISODE D/T MITOCHRONDIAL DISEASE HAD WORK UP DONE AT [facility]. Dysautonomia-progressive neurological disorder, lupus/LUPUS ANTICOAGULANTS, ana maria's disease, lymphedema Lt arm d/t DVTs , v-tach, pituitary microadenoma. patent foramen ovale, narcolepsy, gastropareis, IDDM type II, falls, orthostatic hypotension/syncope, migraines with hemiplegia, pernicious anemia, polycystic ovarian syndrome, neuropathy bilateral legs/feet - mild, uti's. History of Any Multi-Drug Resistant Organisms: ESBL, MRSA Date of last positivie culture/infection: 03/09/17 MRSA/ 05/17/18 ESBL MDRO Source:: MRSA LEFT ARM,/ESBL URINE ECOLI Past Surgical History: Uterine Ablation Additional Past Surgical History / Comment(s): colonscopy/egd, angie, PORT-A -CATH INSERTION 04-28-18 Past Anesthesia/Blood Transfusion Reactions: No Reported Reaction Additional Past Anesthesia/Blood Transfusion Reaction / Comment(s): patient states "It takes a lot of anesthesia for my body to react". Pt has received blood in past without reaction. Past Psychological History: Bipolar, Depression Smoking Status: Never smoker - Past Family History Brother(s) Family Medical History: Diabetes Mellitus, Hyperlipidemia, Hypertension Additional Family Medical History / Comment(s): Patient states she has 1 brother with no major medical problems. Father Family Medical History: Diabetes Mellitus, Hyperlipidemia, Hypertension Additional Family Medical History / Comment(s): DAD IS 70 YEARS OLD. Patient states she does not have any contact with her father and does not know his medical history. Mother Family Medical History: CVA/TIA, Deep Vein Thrombosis (DVT) Additional Family Medical History / Comment(s): antiphospholipid antibody syndrome General Exam - General Exam Comments Initial Comments: GENERAL: Well-appearing, well-nourished and in no acute distress. Obese. HEAD: Atraumatic, normocephalic. EYES: Pupils equal round and reactive to light, extraocular movements intact, sclera anicteric, conjunctiva are normal. ENT: TMs normal, nares patent, oropharynx clear without exudates. Moist mucous membranes. NECK: Normal range of motion, supple without lymphadenopathy or JVD. LUNGS: Breath sounds clear to auscultation bilaterally and equal. No wheezes rales or rhonchi. HEART: Regular rate and rhythm without murmurs, rubs or gallops. ABDOMEN: Soft, nontender, normoactive bowel sounds. No guarding, no rebound. No masses appreciated. : Deferred EXTREMITIES: Normal range of motion, no pitting or edema. No clubbing or cyanosis. 4/5 strength upper and lower extremities. NEUROLOGICAL: Cranial nerves II through XII grossly intact. Normal speech. Sensation equal in bilateral upper and lower extremities. PSYCH: Normal mood, normal affect. SKIN: Warm, Dry, normal turgor, no rashes or lesions noted. Limitations: no limitations Course Vital Signs 07/27/19 07/27/19 14:56 18:06 Temperature 98.6 F 97.6 F Pulse Rate 98 82 Respiratory 16 20 Rate Blood Pressure 114/82 124/85 O2 Sat by Pulse 97 99 Oximetry Medical Decision Making - Medical Decision Making Patient is a 39-year-old female presenting with complaints of muscle weakness and upper extremities. Patient has history of myocardial disease and is a frequent of the ER. Patient states the weakness has been increasing over the last couple days. Patient is presently using a wheelchair secondary to lower extremity weakness. On exam, patient has 4 out of 5 strength in upper and lower extremities. Rest of exam is within normal limits. CBC, CMP, UA are all within normal limits. Lactic acid is 1.5, creatinine kinase is 83, TSH is normal. These findings were discussed with the patient and she is satisfied with the results. It was discussed that she might have been overdoing of the last few days and recommended resting. Patient is stable for discharge at this time and she is in agreement with this plan of care. Return parameters were discussed with the patient she verbalized understanding. Case discussed with Dr. Owens. - Lab Data Result diagrams: 07/27/19 15:55 07/27/19 15:55 Lab Results 07/27/19 07/27/19 07/27/19 Range/Units 15:55 15:55 15:55 WBC 9.6 (3.8-10.6) k/uL RBC 4.28 (3.80-5.40) m/uL Hgb 11.8 (11.4-16.0) gm/dL Hct 36.6 (34.0-46.0) % MCV 85.5 (80.0-100.0) fL MCH 27.5 (25.0-35.0) pg MCHC 32.2 (31.0-37.0) g/dL RDW 14.4 (11.5-15.5) % Plt Count 399 (150-450) k/uL Neutrophils % 78 % Lymphocytes % 14 % Monocytes % 4 % Eosinophils % 2 % Basophils % 0 % Neutrophils # 7.5 (1.3-7.7) k/uL Lymphocytes # 1.3 (1.0-4.8) k/uL Monocytes # 0.4 (0-1.0) k/uL Eosinophils # 0.2 (0-0.7) k/uL Basophils # 0.0 (0-0.2) k/uL Sodium 143 (137-145) mmol/L Potassium 4.3 (3.5-5.1) mmol/L Chloride 109 H (98-107) mmol/L Carbon Dioxide 20 L (22-30) mmol/L Anion Gap 14 mmol/L BUN 16 (7-17) mg/dL Creatinine 0.88 (0.52-1.04) mg/dL Est GFR (CKD-EPI)AfAm >90 (>60 ml/min/1.73 sqM) Est GFR (CKD-EPI)NonAf 84 (>60 ml/min/1.73 sqM) Glucose 119 H (74-99) mg/dL Plasma Lactic Acid Joce 1.5 (0.7-2.0) mmol/L Calcium 10.0 (8.4-10.2) mg/dL Total Bilirubin 0.3 (0.2-1.3) mg/dL AST 23 (14-36) U/L ALT 23 (9-52) U/L Alkaline Phosphatase 67 (38-126) U/L Creatine Kinase 83 (30-135) U/L Total Protein 7.8 (6.3-8.2) g/dL Albumin 4.7 (3.5-5.0) g/dL TSH 0.632 (0.465-4.680) mIU/L Urine Color Urine Appearance (Clear) Urine pH (5.0-8.0) Ur Specific [place] (1.001-1.035) Urine Protein (Negative) Urine Glucose (UA) (Negative) Urine Ketones (Negative) Urine Blood (Negative) Urine Nitrite (Negative) Urine Bilirubin (Negative) Urine Urobilinogen (<2.0) mg/dL Ur Leukocyte Esterase (Negative) Urine RBC (0-5) /hpf Urine WBC (0-5) /hpf Ur Squamous Epith Cells (0-4) /hpf Urine Bacteria (None) /hpf Urine Mucus (None) /hpf 07/27/19 Range/Units 15:55 WBC (3.8-10.6) k/uL RBC (3.80-5.40) m/uL Hgb (11.4-16.0) gm/dL Hct (34.0-46.0) % MCV (80.0-100.0) fL MCH (25.0-35.0) pg MCHC (31.0-37.0) g/dL RDW (11.5-15.5) % Plt Count (150-450) k/uL Neutrophils % % Lymphocytes % % Monocytes % % Eosinophils % % Basophils % % Neutrophils # (1.3-7.7) k/uL Lymphocytes # (1.0-4.8) k/uL Monocytes # (0-1.0) k/uL Eosinophils # (0-0.7) k/uL Basophils # (0-0.2) k/uL Sodium (137-145) mmol/L Potassium (3.5-5.1) mmol/L Chloride (98-107) mmol/L Carbon Dioxide (22-30) mmol/L Anion Gap mmol/L BUN (7-17) mg/dL Creatinine (0.52-1.04) mg/dL Est GFR (CKD-EPI)AfAm (>60 ml/min/1.73 sqM) Est GFR (CKD-EPI)NonAf (>60 ml/min/1.73 sqM) Glucose (74-99) mg/dL Plasma Lactic Acid Joce (0.7-2.0) mmol/L Calcium (8.4-10.2) mg/dL Total Bilirubin (0.2-1.3) mg/dL AST (14-36) U/L ALT (9-52) U/L Alkaline Phosphatase (38-126) U/L Creatine Kinase (30-135) U/L Total Protein (6.3-8.2) g/dL Albumin (3.5-5.0) g/dL TSH (0.465-4.680) mIU/L Urine Color Yellow Urine Appearance Clear (Clear) Urine pH 5.5 (5.0-8.0) Ur Specific [place] 1.014 (1.001-1.035) Urine Protein Negative (Negative) Urine Glucose (UA) Negative (Negative) Urine Ketones Negative (Negative) Urine Blood Small H (Negative) Urine Nitrite Negative (Negative) Urine Bilirubin Negative (Negative) Urine Urobilinogen <2.0 (<2.0) mg/dL Ur Leukocyte Esterase Negative (Negative) Urine RBC 1 (0-5) /hpf Urine WBC 2 (0-5) /hpf Ur Squamous Epith Cells 1 (0-4) /hpf Urine Bacteria Occasional H (None) /hpf Urine Mucus Rare H (None) /hpf Disposition Clinical Impression: Weakness Disposition: HOME SELF-CARE Condition: Stable Instructions (If sedation given, give patient instructions): Weakness (ED) Additional Instructions: Please return to the Emergency Department if symptoms worsen or any other concerns. Rest and plenty of fluids. Is patient prescribed a controlled substance at d/c from ED?: No Referrals: Fran Thompson MD [Primary Care Provider] - 1-2 days
[2019-07-27 18:08] VITALS: BP 124/85; PULSE 82; RESP 20; TEMP 97.6
== END 2019-07-27 18:08 | disposition home or self-care (01) ==
LOC: EC 14:32
DX: M62.81 Muscle weakness (generalized) (principal); I51.9 Heart disease, unspecified; E11.9 Type 2 diabetes mellitus without complications; E06.3 Autoimmune thyroiditis; F31.9 Bipolar disorder, unspecified; Z79.4 Long term (current) use of insulin; Z79.890 Hormone replacement therapy; Z79.1 Long term (current) use of non-steroidal anti-inflammatories (NSAID); Z79.899 Other long term (current) drug therapy; Z88.8 Allergy status to other drugs, medicaments and biological substances; Z88.1 Allergy status to other antibiotic agents; Z88.7 Allergy status to serum and vaccine; Z91.010 Allergy to peanuts; Z88.2 Allergy status to sulfonamides; Z86.73 Personal history of transient ischemic attack (TIA), and cerebral infarction without residual deficits; Z86.718 Personal history of other venous thrombosis and embolism
CPT/HCPCS: 36415; 80053; 81001; 82550; 83605; 84443; 85025; 96360; 99283

== ENCOUNTER 2019-09-28 19:05 | Emergency (ER) | payer MEDICARE, OTHER ==
[2019-09-28 19:13] VITALS: RESP 18; TEMP 98.5
[2019-09-28] MEDS ORDERED: ONDANSETRON 4 MG/2 ML VIAL IVP STA (19:42)
[2019-09-28] MEDS ORDERED: PANTOPRAZOLE 40 MG/10 ML VIAL IVP STA (19:42)
[2019-09-28] MEDS ORDERED: SODIUM CHLORIDE 0.9% 1,000 ML IV STA (19:42)
[2019-09-28] MEDS ORDERED: DICYCLOMINE 10 MG/ML 2 ML AMP IM STA (19:42)
[2019-09-28 20:23] LABS: Basophils % (A) 0 %; Eosinophils # (A) 0.2 k/uL (0-0.7); Eosinophils % (A) 2 %; HCT 33.8 % (34.0-46.0); Hypochromasia Slight; Lymphocytes # (A) 1.4 k/uL (1.0-4.8); Lymphocytes % (A) 14 %; MCH 28.9 pg (25.0-35.0); MCHC 32.6 g/dL (31.0-37.0); MCV 88.7 fL (80.0-100.0); Mean Platelet Volume 5.8; Monocytes # (A) 0.4 k/uL (0-1.0); Monocytes % (A) 4 %; Neutrophils # (A) 7.8 k/uL (1.3-7.7); Neutrophils % (A) 78 %; Platelet Count 407 k/uL (150-450); RBC 3.81 m/uL (3.80-5.40); RDW 13.5 % (11.5-15.5)
[2019-09-28 20:25] LABS: Appearance,Urine Clear (Clear); Bilirubin,Urine Negative (Negative); Blood,Urine Negative (Negative); Color,Urine Yellow; Glucose,Urine (UA) 4+ (Negative); Ketones,Urine Negative (Negative); Leukocyte Esterase,Urine Negative (Negative); Nitrite,Urine Negative (Negative); Protein,Urine Negative (Negative); Specific Gravity,Urine 1.021 (1.001-1.035); Urobilinogen,Urine <2.0 mg/dL (<2.0)
[2019-09-28 20:32] LABS: ALT 17 U/L (9-52); AST 18 U/L (14-36); African American GFR (CKD) >90 (>60 ml/min/1.73 sqM); Albumin 4.2 g/dL (3.5-5.0); Alkaline Phosphatase 78 U/L (38-126); Amylase 43 U/L (30-110); Anion Gap 12 mmol/L; Blood Urea Nitrogen 16 mg/dL (7-17); Calcium 9.7 mg/dL (8.4-10.2); Carbon Dioxide 20 mmol/L (22-30); Chloride 108 mmol/L (98-107); Glucose 306 mg/dL (74-99); Potassium 4.3 mmol/L (3.5-5.1); Sodium 140 mmol/L (137-145); Total Bilirubin 0.3 mg/dL (0.2-1.3); Total Protein 7.1 g/dL (6.3-8.2)
--- NOTE | 2019-09-28 21:41 | CT ---
EXAMINATION TYPE: CT abdomen pelvis w con DATE OF EXAM: 09/28/2019 HISTORY: LT side abdomen pain. CT DLP: 2015.4mGycm Automated Exposure Control for Dose Reduction was Utilized. CONTRAST: CT scan of the abdomen and pelvis is performed with IV Contrast, patient injected with 100 mL of Isov ue 300. COMPARISON: 01/22/[address] pelvis [address] [employer] chest dated 08/16/2015 FINDINGS: LUNG BASES: Right basilar subcentimeter pulmonary nodules seen on 9 measuring approximately 5 mm. Thi s is stable dating back to thousand 15, presumably benign given long-term stability. LIVER/GB: The liver is enlarged. Hepatic parenchyma is diffusely hypoattenuated in comparison to that of the spleen, most commonly seen in hepatic steatosis. This finding limits evaluation for hepatic m asses. No gross evidence of hepatic mass is seen. No intrahepatic biliary ductal dilatation. No davin lithiasis . PANCREAS: No significant abnormality is seen. SPLEEN: Stable hypoattenuated region within the spleen given stability likely represents a small jaxson ngioma, lymphangioma or cyst. ADRENALS: No significant abnormality is seen. KIDNEYS: Too small to accurately characterize cortically based renal lesion is seen on the left on im age 41 of series 201. Cortical renal cyst measures 1.4 cm on the left and probable additional smaller exophytic lower pole cortical cyst is seen on image 55 on the left. No hydronephrosis of either kidn ey. Too small to accurately characterize right renal lesion is present on image 42. BOWEL: Appendix is within normal limits of size throughout without periappendiceal fat stranding. Hig h density likely relates to inspissated debris. Moderate degree colonic fecal stasis. No dilated larg e or small bowel. LYMPH NODES: No greater than 1cm abdominal or pelvic lymph nodes are appreciated. OSSEOUS STRUCTURES: Mild multilevel degenerative changes of the spine. IMPRESSION: 1. No significant acute finding is seen to account for patient's clinical symptoms. 2. Hepatic steatosis is incidentally seen with renal cysts and other lesions that are too small to ac curately characterize.
[2019-09-28] MEDS ORDERED: KETOROLAC 30 MG/ML 1 ML VIAL IVP STA (21:53)
--- NOTE | 2019-09-28 21:55 | ED ---
Abdominal Pain HPI - General Chief Complaint: Abdominal Pain Stated Complaint: Abd Pain Time Seen by Provider: 09/28/19 19:24 Source: patient, EMS Mode of arrival: EMS Limitations: no limitations - History of Present Illness Initial Comments: Patient is a 39-year-old female with history of type 2 diabetes is presenting to emergency department with a chief complaint of abdominal pain. Patient reports that incident occurred at 1300 today after she ate. Patient reports left upper quadrant abdominal pain that appears to be exacerbated after she ate food. Patient reports pain is a 7, constant but comes in waves. Patient does report nausea but no vomiting or diarrhea. Patient denies any urinary symptoms. Patient reports she has a Mediport for rehydration due to recurrent dehydration. Patient denies any radiation of the pain. Patient denies any night sweats fevers or chills. Patient denies recent international travels or eating food that has been sitting on room temperature for prolonged periods of time. Patient denies any chest pain, shortness of breath. Patient denies hematuria, hematochezia or melena. - Related Data Home Medications Medication Instructions Recorded Confirmed Rivaroxaban [Xarelto] 20 mg PO HS 03/09/17 09/07/19 tiZANidine [Zanaflex] 8 mg PO HS 03/09/17 09/07/19 Metoclopramide [Reglan] 10 mg PO ACHS 07/29/17 09/07/19 Metoprolol Succinate (ER) [Toprol 50 mg PO DAILY 10/24/17 09/07/19 XL] Fenofibrate 160 mg PO HS 09/01/18 09/07/19 Dexlansoprazole [Dexilant] 30 mg PO [facility] 12/04/18 09/07/19 INSULIN ASPART (NovoLOG) [NovoLOG See Protocol SQ [facility] 12/04/18 09/07/19 (formulary)] Insulin Glargine [Lantus] 40 unit SQ HS 12/04/18 09/07/19 Losartan [Cozaar] 25 mg PO DAILY 12/04/18 09/07/19 tiZANidine [Zanaflex] 4 mg PO AC-BID 12/04/18 09/07/19 Levothyroxine Sodium [Synthroid] 100 mcg PO DAILY 01/16/19 09/07/19 Cyanocobalamin (Vitamin B-12) 2,000 mcg PO DAILY 01/22/19 09/07/19 [Vitamin B-12] Levothyroxine Sodium [Synthroid] 125 mcg PO DAILY 01/22/19 09/07/19 Meloxicam [Mobic] 15 mg PO DAILY 03/01/19 09/07/19 diphenhydrAMINE [Benadryl] 75 mg PO HS PRN 03/01/19 09/07/19 Butalb/APAP/Caff 50-325-40Mg 1 tab PO Q4H PRN 03/12/19 09/07/19 [Fioricet 50-325-40] Ondansetron HCl [Zofran] 8 mg PO Q6H PRN 03/12/19 09/07/19 Prochlorperazine Suppository 25 mg RECTAL BID PRN 03/12/19 09/07/19 [Compazine] Promethazine [Phenergan] 25 mg PO Q4-6H PRN 03/12/19 09/07/19 Sertraline [Zoloft] 200 mg PO DAILY 04/16/19 09/07/19 cloNIDine HCL [Catapres] 0.1 mg PO DAILY PRN 04/16/19 09/07/19 risperiDONE [RisperDAL] 0.5 mg PO HS 04/16/19 09/07/19 traMADol HCL [Ultram] 50 mg PO BID PRN 06/28/19 09/07/19 Acetyl L-Carnitine 800 mg PO DAILY 07/12/19 09/07/19 Alpha Lipoic Acid 400 mg PO DAILY 07/12/19 09/07/19 Cetirizine HCl [Zyrtec] 10 mg PO DAILY 07/12/19 09/07/19 Cholecalciferol (Vitamin D3) 2,000 unit PO DAILY 07/12/19 09/07/19 [Vitamin D3] DULoxetine HCL [Cymbalta] 60 mg PO BID 07/12/19 09/07/19 Magnesium Gluconate [Magonate] 500 mg PO HS 07/12/19 09/07/19 Methenamine Hippurate 1 gm PO BID 07/12/19 09/07/19 Metoprolol Succinate [Toprol Xl] 50 mg PO HS PRN 07/12/19 09/07/19 Thiamine [Vitamin B-1] 250 mg PO DAILY 07/12/19 09/07/19 Trimethoprim [Trimpex] 100 mg PO HS 07/12/19 09/07/19 Ubidecarenone [Co Q-10] 100 mg PO BID 07/12/19 09/07/19 Vitamin B Complex 1 each PO DAILY 07/12/19 09/07/19 Vitamin E (Dl,Tocopheryl Acet) 400 unit PO DAILY 07/12/19 09/07/19 [Vitamin E] levOCARNitine [l-Carnitine] 1,000 mg PO DAILY 07/12/19 09/07/19 Previous Rx's Medication Instructions Recorded Gabapentin [Neurontin] 400 mg PO TID cap 03/07/19 Modafinil [Provigil] 200 mg PO DAILY tab 03/07/19 Topiramate [Topamax] 200 mg PO BID 30 Days #120 tab 03/07/19 cloNIDine HCL [Catapres] 0.1 mg PO BID 30 Days #60 tab 03/07/19 Allergies Allergy/AdvReac Type Severity Reaction Status Date / Time barium sulfate Allergy Anaphylaxis Verified 09/14/19 13:56 doxepin [Doxepin] Allergy Anaphylaxis Verified 09/14/19 13:56 ephedrine Allergy Unknown Verified 09/14/19 13:56 ertapenem [From Invanz] Allergy Rash/Hives Verified 09/14/19 13:56 influenza virus vaccine, Allergy severe Verified 09/14/19 13:56 specific swelling [Influenza Virus and hives Vacc,Specific] peanut oil AdvReac Severe Nausea & Verified 09/14/19 13:56 Vomiting,itching doxycycline AdvReac Nausea & Verified 09/14/19 13:56 Vomiting & Diarrhea peanut AdvReac Nausea & Verified 09/14/19 13:56 Vomiting Pertussis Vaccines AdvReac fever/seizu Verified 09/14/19 13:56 re pseudoephedrine AdvReac Chest Pain Verified 09/14/19 13:56 pseudoephedrine HCl AdvReac Chest Pain Verified 09/14/19 13:56 [From Sudafed] sulfamethoxazole AdvReac Nausea & Verified 09/14/19 13:56 [From Bactrim] Vomiting trimethoprim [From Bactrim] AdvReac Nausea & Verified 09/14/19 13:56 Vomiting Review of Systems ROS Statement: Those systems with pertinent positive or pertinent negative responses have been documented in the HPI. ROS Other: All systems not noted in ROS Statement are negative. Past Medical History Past Medical History: Chest Pain / Angina, CVA/TIA, Diabetes Mellitus, Deep Vein Thrombosis (DVT), Neurologic Disorder, Syncope, Thyroid Disorder Additional Past Medical History / Comment(s): STROKE LIKE EPISODE D/T MITOCHRONDIAL DISEASE HAD WORK UP DONE AT [facility]. Dysautonomia-progressive neurological disorder, lupus/LUPUS ANTICOAGULANTS, ana maria's disease, lymphedema Lt arm d/t DVTs , v-tach, pituitary microadenoma. patent foramen ovale, narcolepsy, gastropareis, IDDM type II, falls, orthostatic hypotension/syncope, migraines with hemiplegia, pernicious anemia, polycystic ovarian syndrome, neuropathy bilateral legs/feet - mild, uti's. History of Any Multi-Drug Resistant Organisms: ESBL, MRSA Date of last positivie culture/infection: 03/09/17 MRSA/ 05/17/18 ESBL MDRO Source:: MRSA LEFT ARM,/ESBL URINE [facility] Past Surgical History: Uterine Ablation Additional Past Surgical History / Comment(s): colonscopy/egd, angie, PORT-A -CATH INSERTION 04-28-18 Past Anesthesia/Blood Transfusion Reactions: No Reported Reaction Additional Past Anesthesia/Blood Transfusion Reaction / Comment(s): patient states "It takes a lot of anesthesia for my body to react". Pt has received blood in past without reaction. Past Psychological History: Bipolar, Depression Smoking Status: Never smoker - Past Family History Brother(s) Family Medical History: Diabetes Mellitus, Hyperlipidemia, Hypertension Additional Family Medical History / Comment(s): Patient states she has 1 brother with no major medical problems. Father Family Medical History: Diabetes Mellitus, Hyperlipidemia, Hypertension Additional Family Medical History / Comment(s): DAD IS 70 YEARS OLD. Patient states she does not have any contact with her father and does not know his medical history. Mother Family Medical History: CVA/TIA, Deep Vein Thrombosis (DVT) Additional Family Medical History / Comment(s): antiphospholipid antibody syndrome General Exam Limitations: no limitations General appearance: alert, in no apparent distress, obese Head exam: Present: atraumatic, normocephalic, normal inspection Eye exam: Present: normal appearance Pupils: Present: normal accommodation ENT exam: Present: normal exam, normal oropharynx, mucous membranes moist, TM's normal bilaterally, normal external ear exam Neck exam: Present: normal inspection, full ROM Respiratory exam: Present: normal lung sounds bilaterally Cardiovascular Exam: Present: regular rate, normal rhythm, normal heart sounds GI/Abdominal exam: Present: soft, tenderness (Left upper quadrant. No McBurney point tenderness, negative Harris, negative obturator sign, negative Rovsing, negative psoas.), normal bowel sounds. Absent: distended, guarding, rebound, rigid, organomegaly, mass, pulsatile mass, hernia Extremities exam: Present: normal inspection, full ROM Back exam: Present: normal inspection, full ROM Neurological exam: Present: alert, oriented X3, normal gait Psychiatric exam: Present: normal affect, normal mood Skin exam: Present: warm, intact, normal color Course Vital Signs 09/28/19 09/28/19 19:09 22:33 Temperature 98.5 F Pulse Rate 91 80 Respiratory 18 18 Rate Blood Pressure 103/70 114/79 O2 Sat by Pulse 98 98 Oximetry Medical Decision Making - Medical Decision Making Patient is a 39-year-old female with history of type 2 diabetes presenting to the emergency department with a chief complaint of abdominal pain. Patient appears to have an onset of abdominal pain only after eating the left upper quadrant. Patient was given fluids, Zofran, Bentyl and Protonix. On reevaluation patient reports the nausea has resolved however the pain is still there although it a lesser degree. Patient was requesting further evaluation. CT of abdomen and pelvis was obtained and shows hepatic steatosis and otherwise unremarkable. UA is only showing glucose. CBC is indicative of 300 glucose. Patient reports she has not taken her diabetes medication today yet. I suspect the patient to have pain due to gastritis. Patient reports. He takes a PPI at home. Patient advised to follow-up with primary care. At this time low suspicion for cholecystitis or appendicitis. Strict return parameters were thoroughly discussed with patient was understanding and agreeable. Case discussed with physician. - Lab Data Result diagrams: 09/28/19 20:03 09/28/19 20:03 Lab Results 09/28/19 09/28/19 09/28/19 Range/Units 20:03 20:03 20:03 WBC 10.0 (3.8-10.6) k/uL RBC 3.81 (3.80-5.40) m/uL Hgb 11.0 L (11.4-16.0) gm/dL Hct 33.8 L (34.0-46.0) % MCV 88.7 (80.0-100.0) fL MCH 28.9 (25.0-35.0) pg MCHC 32.6 (31.0-37.0) g/dL RDW 13.5 (11.5-15.5) % Plt Count 407 (150-450) k/uL Neutrophils % 78 % Lymphocytes % 14 % Monocytes % 4 % Eosinophils % 2 % Basophils % 0 % Neutrophils # 7.8 H (1.3-7.7) k/uL Lymphocytes # 1.4 (1.0-4.8) k/uL Monocytes # 0.4 (0-1.0) k/uL Eosinophils # 0.2 (0-0.7) k/uL Basophils # 0.0 (0-0.2) k/uL Hypochromasia Slight Sodium 140 (137-145) mmol/L Potassium 4.3 (3.5-5.1) mmol/L Chloride 108 H (98-107) mmol/L Carbon Dioxide 20 L (22-30) mmol/L Anion Gap 12 mmol/L BUN 16 (7-17) mg/dL Creatinine 0.82 (0.52-1.04) mg/dL Est GFR (CKD-EPI)AfAm >90 (>60 ml/min/1.73 sqM) Est GFR (CKD-EPI)NonAf >90 (>60 ml/min/1.73 sqM) Glucose 306 H (74-99) mg/dL Calcium 9.7 (8.4-10.2) mg/dL Total Bilirubin 0.3 (0.2-1.3) mg/dL AST 18 (14-36) U/L ALT 17 (9-52) U/L Alkaline Phosphatase 78 (38-126) U/L Total Protein 7.1 (6.3-8.2) g/dL Albumin 4.2 (3.5-5.0) g/dL Amylase 43 (30-110) U/L Lipase 104 (23-300) U/L Urine Color Yellow Urine Appearance Clear (Clear) Urine pH 6.0 (5.0-8.0) Ur Specific [place] 1.021 (1.001-1.035) Urine Protein Negative (Negative) Urine Glucose (UA) 4+ H (Negative) Urine Ketones Negative (Negative) Urine Blood Negative (Negative) Urine Nitrite Negative (Negative) Urine Bilirubin Negative (Negative) Urine Urobilinogen <2.0 (<2.0) mg/dL Ur Leukocyte Esterase Negative (Negative) Disposition Clinical Impression: Abdominal pain, Gastritis Disposition: HOME SELF-CARE Condition: Stable Instructions (If sedation given, give patient instructions): Abdominal Pain (ED) Additional Instructions: Please follow up with primary care. Please return to emergency department symptoms worsen. Is patient prescribed a controlled substance at d/c from ED?: No Referrals: Julissa Montano III, MD [Primary Care Provider] - 1-2 days Time of Disposition: 22:20
[2019-09-28 22:39] VITALS: BP 114/79; PULSE 80
== END 2019-09-28 22:39 | disposition home or self-care (01) ==
LOC: SUPCPDRO 19:05 → EC 19:05
DX: K29.70 Gastritis, unspecified, without bleeding (principal); K76.0 Fatty (change of) liver, not elsewhere classified; E86.0 Dehydration; E11.42 Type 2 diabetes mellitus with diabetic polyneuropathy; E11.43 Type 2 diabetes mellitus with diabetic autonomic (poly)neuropathy; K31.84 Gastroparesis; E06.3 Autoimmune thyroiditis; M32.9 Systemic lupus erythematosus, unspecified; F31.9 Bipolar disorder, unspecified; Z88.1 Allergy status to other antibiotic agents; Z88.2 Allergy status to sulfonamides; Z88.7 Allergy status to serum and vaccine; Z88.8 Allergy status to other drugs, medicaments and biological substances; Z91.010 Allergy to peanuts; Z91.041 Radiographic dye allergy status; Z79.01 Long term (current) use of anticoagulants; Z79.1 Long term (current) use of non-steroidal anti-inflammatories (NSAID); Z79.4 Long term (current) use of insulin; Z79.890 Hormone replacement therapy; Z79.899 Other long term (current) drug therapy; Z86.14 Personal history of Methicillin resistant Staphylococcus aureus infection; Z86.73 Personal history of transient ischemic attack (TIA), and cerebral infarction without residual deficits; Z86.718 Personal history of other venous thrombosis and embolism; Z87.440 Personal history of urinary (tract) infections; Z95.828 Presence of other vascular implants and grafts; Z83.3 Family history of diabetes mellitus
CPT/HCPCS: 36415; 80053; 82150; 83690; 85025; 81003; 74177; 99284; 96374; 96375 ×3; 96361; 96372; J0500; J2405; J1885; J1642; C9113; Q9967

== ENCOUNTER 2019-10-08 12:37 | Inpatient (IN) | payer MEDICARE, MEDICAID ==
--- NOTE | 2019-10-08 13:48 | ED ---
General Adult HPI - General Chief complaint: Psychiatric Symptoms Stated complaint: SUICIDAL Time Seen by Provider: 10/08/19 12:50 Source: patient, RN notes reviewed, old records reviewed Mode of arrival: ambulatory Limitations: no limitations - History of Present Illness Initial comments: This is a 39-year-old female with past medical history significant for depression and a mitochondrial disease. Patient states she has a history of depression and PTSD. Patient states she has quite a few medical problems and that is giving her a lot of issues and with because of these issues she's not allowed to live and normal life and she does not want to continue living. Patient states this is been an ongoing problem and is not getting any better. Patient denies any recent physical complaints. Patient denies fever chills or cough. Patient denies chest pain difficulty breathing shortest breath per patient denies any headache patient denies numbness weakness. Patient denies any abdominal pain patient denies nausea vomiting diarrhea. - Related Data Home Medications Medication Instructions Recorded Confirmed Rivaroxaban [Xarelto] 20 mg PO HS 03/09/17 10/09/19 tiZANidine [Zanaflex] 8 mg PO HS 03/09/17 10/09/19 Metoclopramide [Reglan] 10 mg PO ACHS 07/29/17 10/09/19 Fenofibrate 160 mg PO HS 09/01/18 10/09/19 tiZANidine [Zanaflex] 4 mg PO BID@0900,1500 12/04/18 10/09/19 Levothyroxine Sodium [Synthroid] 100 mcg PO DAILY 01/16/19 10/09/19 Cyanocobalamin (Vitamin B-12) 2,000 mcg PO DAILY 01/22/19 10/09/19 [Vitamin B-12] Levothyroxine Sodium [Synthroid] 125 mcg PO DAILY 01/22/19 10/09/19 Meloxicam [Mobic] 15 mg PO DAILY 03/01/19 10/09/19 diphenhydrAMINE [Benadryl] 150 mg PO HS PRN 03/01/19 10/09/19 Ondansetron HCl [Zofran] 8 mg PO Q6H PRN 03/12/19 10/09/19 Prochlorperazine Suppository 25 mg RECTAL Q8H PRN 03/12/19 10/09/19 [Compazine] Promethazine [Phenergan] 25 mg PO Q4-6H PRN 03/12/19 10/09/19 Sertraline [Zoloft] 200 mg PO DAILY 04/16/19 10/09/19 cloNIDine HCL [Catapres] 0.1 mg PO DAILY PRN 04/16/19 10/09/19 risperiDONE [RisperDAL] 0.5 mg PO HS 04/16/19 10/09/19 traMADol HCL [Ultram] 50 mg PO BID PRN 06/28/19 10/09/19 Cetirizine HCl [Zyrtec] 10 mg PO DAILY 07/12/19 10/09/19 DULoxetine HCL [Cymbalta] 60 mg PO BID 07/12/19 10/09/19 Methenamine Hippurate 1 gm PO BID 07/12/19 10/09/19 Metoprolol Succinate [Toprol Xl] 50 mg PO DAILY@1500 PRN 07/12/19 10/09/19 Trimethoprim [Trimpex] 100 mg PO HS 07/12/19 10/09/19 Dexlansoprazole [Dexilant] 60 mg PO DAILY 10/08/19 10/09/19 Ergocalciferol [Vitamin D2] 50,000 unit PO [place] 10/08/19 10/09/19 Fluticasone Nasal [place] [Flonase 1 spray EA NOSTRIL DAILY 10/08/19 10/09/19 Nasal [place]] Insulin Aspart [NovoLOG Flexpen] See Protocol SQ ACHS 10/08/19 10/09/19 Insulin Glargine,Hum.rec.anlog 50 unit SQ HS 10/08/19 10/09/19 [Lantus Solostar] Magnesium Oxide [Mag-Ox] 250 mg PO HS 10/08/19 10/09/19 Melatonin 5 mg PO HS 10/08/19 10/09/19 Metoprolol Succinate [Toprol XL] 50 mg PO DAILY 10/08/19 10/09/19 Mirabegron [Myrbetriq] 25 mg PO DAILY 10/08/19 10/09/19 Rizatriptan Benzoate [Rizatriptan] 5 mg PO BID PRN 10/08/19 10/09/19 Topiramate [Topamax] 200 mg PO BID 10/08/19 10/09/19 busPIRone HCl [Buspar] 10 mg PO BID 10/08/19 10/09/19 Linaclotide [Linzess] 145 mcg PO DAILY 10/09/19 10/09/19 Previous Rx's Medication Instructions Recorded Gabapentin [Neurontin] 400 mg PO TID cap 03/07/19 Modafinil [Provigil] 200 mg PO DAILY tab 03/07/19 cloNIDine HCL [Catapres] 0.1 mg PO BID 30 Days #60 tab 03/07/19 Allergies Allergy/AdvReac Type Severity Reaction Status Date / Time barium sulfate Allergy Anaphylaxis Verified 10/09/19 12:57 doxepin [Doxepin] Allergy Anaphylaxis Verified 10/09/19 12:57 ephedrine Allergy Unknown Verified 10/09/19 12:57 ertapenem [From Invanz] Allergy Rash/Hives Verified 10/09/19 12:57 influenza virus vaccine, Allergy severe Verified 10/09/19 12:57 specific swelling [Influenza Virus and hives Vacc,Specific] peanut oil AdvReac Severe Nausea & Verified 10/09/19 12:57 Vomiting,itching doxycycline AdvReac Nausea & Verified 10/09/19 12:57 Vomiting & Diarrhea peanut AdvReac Nausea & Verified 10/09/19 12:57 Vomiting Pertussis Vaccines AdvReac fever/seizu Verified 10/09/19 12:57 re pseudoephedrine AdvReac Chest Pain Verified 10/09/19 12:57 pseudoephedrine HCl AdvReac Chest Pain Verified 10/09/19 12:57 [From Sudafed] sulfamethoxazole AdvReac Nausea & Verified 10/09/19 12:57 [From Bactrim] Vomiting trimethoprim [From Bactrim] AdvReac Nausea & Verified 10/09/19 12:57 Vomiting Review of Systems ROS Statement: Those systems with pertinent positive or pertinent negative responses have been documented in the HPI. ROS Other: All systems not noted in ROS Statement are negative. Past Medical History Past Medical History: Chest Pain / Angina, CVA/TIA, Diabetes Mellitus, Deep Vein Thrombosis (DVT), Neurologic Disorder, Syncope, Thyroid Disorder Additional Past Medical History / Comment(s): STROKE LIKE EPISODE D/T MITOCHRONDIAL DISEASE HAD WORK UP DONE AT [facility]. Dysautonomia-progressive neurological disorder, lupus/LUPUS ANTICOAGULANTS, ana maria's disease, lymphedema Lt arm d/t DVTs , v-tach, pituitary microadenoma. patent foramen ovale, narcolepsy, gastropareis, IDDM type II, falls, orthostatic hypotension/syncope, migraines with hemiplegia, pernicious anemia, polycystic ovarian syndrome, neuropathy bilateral legs/feet - mild, uti's. History of Any Multi-Drug Resistant Organisms: ESBL, MRSA Date of last positivie culture/infection: 03/09/17 MRSA/ 05/17/18 ESBL MDRO Source:: MRSA LEFT ARM,/ESBL URINE [facility]OLI Past Surgical History: Uterine Ablation Additional Past Surgical History / Comment(s): colonscopy/egd, angie, PORT-A -CATH INSERTION 04-28-18 Past Anesthesia/Blood Transfusion Reactions: No Reported Reaction Additional Past Anesthesia/Blood Transfusion Reaction / Comment(s): patient states "It takes a lot of anesthesia for my body to react". Pt has received blood in past without reaction. Past Psychological History: Bipolar, Depression Smoking Status: Never smoker - Past Family History Brother(s) Family Medical History: Diabetes Mellitus, Hyperlipidemia, Hypertension Additional Family Medical History / Comment(s): Patient states she has 1 brother with no major medical problems. Father Family Medical History: Diabetes Mellitus, Hyperlipidemia, Hypertension Additional Family Medical History / Comment(s): DAD IS 70 YEARS OLD. Patient states she does not have any contact with her father and does not know his medical history. Mother Family Medical History: CVA/TIA, Deep Vein Thrombosis (DVT) Additional Family Medical History / Comment(s): antiphospholipid antibody syndrome General Exam - General Exam Comments Initial Comments: GENERAL: Patient is well-developed and well-nourished. Patient is nontoxic and well- hydrated and is in no acute distress. ENT: Neck is soft and supple. Neck has full range of motion without eliciting any pain. EYES: The sclera were anicteric and conjunctiva were pink and moist. Extraocular mo vements were intact and pupils were equal round and reactive to light. Eyelids were unremarkable. PULMONARY: Unlabored respirations. Good breath sounds bilaterally. No audible rales rhonchi or wheezing was noted. CARDIOVASCULAR: There is a regular rate and rhythm without any murmurs gallops or rubs. ABDOMEN: Soft and nontender with normal bowel sounds. SKIN: Skin is clear with no lesions or rashes and otherwise unremarkable. NEUROLOGIC: Patient is alert and oriented x3. Cranial nerves II through XII are grossly intact. Motor and sensory are also intact. Normal speech, volume and content. Symmetrical smile. MUSCULOSKELETAL: Normal extremities with adequate strength and full range of motion. Patient states the strength in her extremities currently is normal. LYMPHATICS: No significant lymphadenopathy is noted PSYCHIATRIC: Patient is depressed and states she wants to kill herself Limitations: no limitations Course Vital Signs 10/08/19 10/08/19 12:46 16:51 Temperature 98 F 98.8 F Pulse Rate 113 H 107 H Respiratory 18 18 Rate Blood Pressure 118/81 125/87 O2 Sat by Pulse 98 98 Oximetry Medical Decision Making - Lab Data Result diagrams: 10/09/19 08:01 10/09/19 08:01 Lab Results 10/08/19 10/08/19 10/08/19 Range/Units 13:25 13:25 13:25 Urine Color Yellow Urine Appearance Cloudy H (Clear) Urine pH 5.0 (5.0-8.0) Ur Specific [place] 1.013 (1.001-1.035) Urine Protein Negative (Negative) Urine Glucose (UA) Negative (Negative) Urine Ketones Negative (Negative) Urine Blood Negative (Negative) Urine Nitrite Negative (Negative) Urine Bilirubin Negative (Negative) Urine Urobilinogen <2.0 (<2.0) mg/dL Ur Leukocyte Esterase Small H (Negative) Urine RBC 21 H (0-5) /hpf Urine WBC 11 H (0-5) /hpf Ur Squamous Epith Cells 8 H (0-4) /hpf Urine Bacteria Few H (None) /hpf Urine Mucus Rare H (None) /hpf Urine HCG, Qual Not Detected (Not Detectd) Urine Opiates Screen Not Detected (NotDetected) Ur Oxycodone Screen Not Detected (NotDetected) Urine Methadone Screen Not Detected (NotDetected) Ur Propoxyphene Screen Not Detected (NotDetected) Ur Barbiturates Screen Not Detected (NotDetected) U Tricyclic Antidepress Not Detected (NotDetected) Ur Phencyclidine Scrn Not Detected (NotDetected) Ur Amphetamines Screen Not Detected (NotDetected) U Methamphetamines Scrn Not Detected (NotDetected) U Benzodiazepines Scrn Not Detected (NotDetected) Urine Cocaine Screen Not Detected (NotDetected) U Marijuana (THC) Screen Not Detected (NotDetected) Disposition Clinical Impression: Depression, Suicidal ideations Disposition: ADMITTED IP TO THIS HOSP
[2019-10-08 15:09] LABS: Amphetamine Screen,Urine Not Detected (NotDetected); Barbiturate Screen,Urine Not Detected (NotDetected); Benzodiazepines Screen,Urine Not Detected (NotDetected); Cocaine Screen,Urine Not Detected (NotDetected); Methadone Screen, Urine Not Detected (NotDetected); Opiate Screen,Urine Not Detected (NotDetected); Oxycodone Screen, Urine Not Detected (NotDetected); Phencyclidine Screen,Urine Not Detected (NotDetected); Tricyclic Antidepressant,Urine Not Detected (NotDetected); Urn Cannabinoid Scrn Not Detected (NotDetected)
[2019-10-08] MEDS ORDERED: PROCHLORPERAZINE SUPPOSITORY 25 MG SUPP RECTAL PRN (17:05)
[2019-10-08] MEDS ORDERED: SUMAtriptan SUCCINATE 50 MG TAB PO PRN (17:05)
[2019-10-08] MEDS ORDERED: diphenhydrAMINE 50 MG CAP PO PRN (17:05)
[2019-10-08] MEDS ORDERED: cloNIDine HCL 0.1 MG TAB PO PRN (17:05)
[2019-10-08] MEDS ORDERED: LORazepam 1 MG TAB PO PRN (17:10)
[2019-10-08 17:52] LABS: Glucose,Whole Blood 195 mg/dL (75-99)
[2019-10-08 18:03] LABS: Appearance,Urine Cloudy (Clear); Bacteria,Urine Few /hpf; Bilirubin,Urine Negative (Negative); Blood,Urine Negative (Negative); Color,Urine Yellow; Glucose,Urine (UA) Negative (Negative); Ketones,Urine Negative (Negative); Leukocyte Esterase,Urine Small (Negative); Mucus,Urine Rare /hpf; Nitrite,Urine Negative (Negative); Protein,Urine Negative (Negative); RBC,Urine 21 /hpf (0-5); Specific Gravity,Urine 1.013 (1.001-1.035); Squamous Epithelial Cell,Urine 8 /hpf (0-4); Urobilinogen,Urine <2.0 mg/dL (<2.0); WBC,Urine 11 /hpf (0-5)
[2019-10-08] MEDS: INSULIN ASPART (NovoLOG) 100 UNIT/ML VIAL SQ SCH ×2 (18:08→20:58)
[2019-10-08] MEDS: METOCLOPRAMIDE 10 MG TAB PO SCH ×2 (18:11→20:50)
[2019-10-08 20:46] LABS: Glucose,Whole Blood 178 mg/dL (75-99)
[2019-10-08] MEDS: busPIRone HCl 10 MG TAB PO SCH (20:49)
[2019-10-08] MEDS: MELATONIN 5 MG TABLET PO SCH (20:50)
[2019-10-08] MEDS: DULoxetine HCL 60 MG CAPSULE.DR PO SCH (20:50)
[2019-10-08] MEDS: cloNIDine HCL 0.1 MG TAB PO SCH (20:50)
[2019-10-08] MEDS: MAGNESIUM OXIDE 400 MG TAB PO SCH (20:53)
[2019-10-08] MEDS: FENOFIBRATE 160 MG TAB PO SCH (20:54)
[2019-10-08] MEDS: TRIMETHOPRIM 100 MG TAB PO SCH (20:55)
[2019-10-08] MEDS: tiZANidine 4 MG TAB PO SCH (20:55)
[2019-10-08] MEDS: INSULIN DETEMIR (LEVEMIR) 100 UNIT/ML SYR SQ SCH (20:56)
[2019-10-08] MEDS: RIVAROXABAN 20 MG TAB PO SCH (20:56)
[2019-10-08] MEDS ORDERED: risperiDONE 0.5 MG TAB PO SCH (21:00)
[2019-10-08] MEDS: GABAPENTIN 400 MG CAP PO SCH (21:02)
[2019-10-08] MEDS: TOPIRAMATE 100 MG TAB PO SCH (21:02)
[2019-10-08] MEDS: METHENAMINE HIPPURATE 1 GM PO SCH (21:42)
[2019-10-09] MEDS: LEVOTHYROXINE 125 MCG TAB PO SCH (05:42)
[2019-10-09] MEDS: LEVOTHYROXINE 100 MCG TAB PO SCH (05:42)
[2019-10-09 08:07] LABS: Glucose,Whole Blood 133 mg/dL (75-99)
[2019-10-09] MEDS: INSULIN ASPART (NovoLOG) 100 UNIT/ML VIAL SQ SCH ×4 (08:09→20:44)
[2019-10-09] MEDS: METOCLOPRAMIDE 10 MG TAB PO SCH ×4 (08:10→20:40)
[2019-10-09] MEDS: PANTOPRAZOLE 40 MG TABLET PO SCH (08:10)
[2019-10-09] MEDS: busPIRone HCl 10 MG TAB PO SCH (08:10)
[2019-10-09] MEDS: cloNIDine HCL 0.1 MG TAB PO SCH ×2 (08:11→20:49)
[2019-10-09] MEDS: CYANOCOBALAMIN 500 MCG TAB PO SCH (08:11)
[2019-10-09] MEDS: LORATADINE 10 MG TAB PO SCH (08:12)
[2019-10-09] MEDS: FLUTICASONE 50MCG/SPRAY NASAL 16GM EA NOSTRIL SCH (08:12)
[2019-10-09] MEDS: GABAPENTIN 400 MG CAP PO SCH ×3 (08:12→20:49)
[2019-10-09] MEDS: DULoxetine HCL 60 MG CAPSULE.DR PO SCH (08:12)
[2019-10-09] MEDS: METOPROLOL SUCCINATE (ER) 50 MG TAB.ER.24H PO SCH (08:13)
[2019-10-09] MEDS: MELOXICAM 7.5 MG TAB PO SCH (08:13)
[2019-10-09] MEDS: MODAFINIL 200 MG TAB PO SCH (08:14)
[2019-10-09] MEDS: NON FORMULARY DRUG (Mirabegron [Myrbetriq] 25 MG) PO SCH (08:15)
[2019-10-09] MEDS: METHENAMINE HIPPURATE 1 GM PO SCH ×2 (08:16→20:56)
[2019-10-09] MEDS: TOPIRAMATE 100 MG TAB PO SCH ×2 (08:17→20:48)
[2019-10-09] MEDS: SERTRALINE 100 MG TAB PO SCH (08:17)
[2019-10-09] MEDS: tiZANidine 4 MG TAB PO SCH ×3 (08:17→20:40)
[2019-10-09 09:16] LABS: ALT 31 U/L (9-52); AST 28 U/L (14-36); African American GFR (CKD) >90 (>60 ml/min/1.73 sqM); Albumin 4.8 g/dL (3.5-5.0); Alkaline Phosphatase 80 U/L (38-126); Anion Gap 14 mmol/L; Basophils # (A) 0.1 k/uL (0-0.2); Basophils % (A) 1 %; Blood Urea Nitrogen 17 mg/dL (7-17); Calcium 10.1 mg/dL (8.4-10.2); Carbon Dioxide 22 mmol/L (22-30); Chloride 106 mmol/L (98-107); Cholesterol 258 mg/dL (<200); Eosinophils # (A) 0.3 k/uL (0-0.7); Eosinophils % (A) 3 %; Glucose 132 mg/dL (74-99); HCT 38.6 % (34.0-46.0); HDL Cholesterol 34 mg/dL (40-60); HGB 12.2 gm/dL (11.4-16.0); LDL Cholesterol,Calculated 159 mg/dL (0-99); Lymphocytes # (A) 2.6 k/uL (1.0-4.8); Lymphocytes % (A) 22 %; MCH 28.3 pg (25.0-35.0); MCHC 31.6 g/dL (31.0-37.0); MCV 89.6 fL (80.0-100.0); Mean Platelet Volume 6.5; Monocytes # (A) 0.5 k/uL (0-1.0); Monocytes % (A) 5 %; Neutrophils # (A) 8.2 k/uL (1.3-7.7); Neutrophils % (A) 69 %; Non-African American GFR(CKD) 88 (>60 ml/min/1.73 sqM); Platelet Count 525 k/uL (150-450); Potassium 4.1 mmol/L (3.5-5.1); RBC 4.31 m/uL (3.80-5.40); RDW 14.2 % (11.5-15.5); Sodium 142 mmol/L (137-145); Total Bilirubin 0.5 mg/dL (0.2-1.3); Total Protein 8.1 g/dL (6.3-8.2); Triglycerides 324 mg/dL (<150); WBC 11.8 k/uL (3.8-10.6)
[2019-10-09 12:33] LABS: Glucose,Whole Blood 134 mg/dL (75-99)
[2019-10-09] MEDS ORDERED: busPIRone HCl 5 MG TAB PO ONE (14:00)
--- NOTE | 2019-10-09 14:03 | P.HP ---
Psychiatric H&P - . H&P Date: 10/09/19 History & Physical: Allergies Allergy/AdvReac Type Severity Reaction Status Date / Time barium sulfate Allergy Anaphylaxis Verified 10/09/19 12:57 doxepin Doxepin Allergy Anaphylaxis Verified 10/09/19 12:57 ephedrine Allergy Unknown Verified 10/09/19 12:57 ertapenem From Invanz Allergy Rash/Hives Verified 10/09/19 12:57 influenza virus vaccine, Allergy severe Verified 10/09/19 12:57 specific swelling Influenza Virus and hives Vacc,Specific peanut oil AdvReac Severe Nausea & Verified 10/09/19 12:57 Vomiting,itching doxycycline AdvReac Nausea & Verified 10/09/19 12:57 Vomiting & Diarrhea peanut AdvReac Nausea & Verified 10/09/19 12:57 Vomiting Pertussis Vaccines AdvReac fever/seizu Verified 10/09/19 12:57 re pseudoephedrine AdvReac Chest Pain Verified 10/09/19 12:57 pseudoephedrine HCl AdvReac Chest Pain Verified 10/09/19 12:57 From Sudafed sulfamethoxazole AdvReac Nausea & Verified 10/09/19 12:57 From Bactrim Vomiting trimethoprim From Bactrim AdvReac Nausea & Verified 10/09/19 12:57 Vomiting Vital Signs Temp 98.6 F 10/09/19 12:52 Pulse 85 10/09/19 12:52 Resp 15 10/09/19 04:55 BP 100/65 10/09/19 12:52 Pulse Ox 96 10/08/19 18:49 Intake & Output 10/08/19 10/09/19 10/09/19 18:59 06:59 18:59 Weight 111.13 kg Laboratory Last Values WBC 11.8 k/uL (3.8-10.6) H 10/09/19 08:01 RBC 4.31 m/uL (3.80-5.40) 10/09/19 08:01 Hgb 12.2 gm/dL (11.4-16.0) 10/09/19 08:01 Hct 38.6 % (34.0-46.0) 10/09/19 08:01 MCV 89.6 fL (80.0-100.0) 10/09/19 08:01 MCH 28.3 pg (25.0-35.0) 10/09/19 08:01 MCHC 31.6 g/dL (31.0-37.0) 10/09/19 08:01 RDW 14.2 % (11.5-15.5) 10/09/19 08:01 Plt Count 525 k/uL (150-450) H 10/09/19 08:01 Neutrophils % 69 % 10/09/19 08:01 Lymphocytes % 22 % 10/09/19 08:01 Monocytes % 5 % 10/09/19 08:01 Eosinophils % 3 % 10/09/19 08:01 Basophils % 1 % 10/09/19 08:01 Neutrophils # 8.2 k/uL (1.3-7.7) H 10/09/19 08:01 Lymphocytes # 2.6 k/uL (1.0-4.8) 10/09/19 08:01 Monocytes # 0.5 k/uL (0-1.0) 10/09/19 08:01 Eosinophils # 0.3 k/uL (0-0.7) 10/09/19 08:01 Basophils # 0.1 k/uL (0-0.2) 10/09/19 08:01 Sodium 142 mmol/L (137-145) 10/09/19 08:01 Potassium 4.1 mmol/L (3.5-5.1) 10/09/19 08:01 Chloride 106 mmol/L (98-107) 10/09/19 08:01 Carbon Dioxide 22 mmol/L (22-30) 10/09/19 08:01 Anion Gap 14 mmol/L 10/09/19 08:01 BUN 17 mg/dL (7-17) 10/09/19 08:01 Creatinine 0.84 mg/dL (0.52-1.04) 10/09/19 08:01 Est GFR (CKD-EPI)AfAm >90 (>60 ml/min/1.73 sqM) 10/09/19 08:01 Est GFR (CKD-EPI)NonAf 88 (>60 ml/min/1.73 sqM) 10/09/19 08:01 Glucose 132 mg/dL (74-99) H 10/09/19 08:01 POC Glucose (mg/dL) 134 mg/dL (75-99) H 10/09/19 12:28 POC Glu Food Demonstrator ID Arleth Francis 10/09/19 12:28 Calcium 10.1 mg/dL (8.4-10.2) 10/09/19 08:01 Total Bilirubin 0.5 mg/dL (0.2-1.3) 10/09/19 08:01 AST 28 U/L (14-36) 10/09/19 08:01 ALT 31 U/L (9-52) 10/09/19 08:01 Alkaline Phosphatase 80 U/L (38-126) 10/09/19 08:01 Total Protein 8.1 g/dL (6.3-8.2) 10/09/19 08:01 Albumin 4.8 g/dL (3.5-5.0) 10/09/19 08:01 Triglycerides 324 mg/dL (<150) H 10/09/19 08:01 Cholesterol 258 mg/dL (<200) H 10/09/19 08:01 LDL Cholesterol, Calc 159 mg/dL (0-99) H 10/09/19 08:01 HDL Cholesterol 34 mg/dL (40-60) L 10/09/19 08:01 TSH 0.276 mIU/L (0.465-4.680) L 10/09/19 08:01 Urine Color Yellow 10/08/19 13:25 Urine Appearance Cloudy (Clear) H 10/08/19 13:25 Urine pH 5.0 (5.0-8.0) 10/08/19 13:25 Ur Specific [place] 1.013 (1.001-1.035) 10/08/19 13:25 Urine Protein Negative (Negative) 10/08/19 13:25 Urine Glucose (UA) Negative (Negative) 10/08/19 13:25 Urine Ketones Negative (Negative) 10/08/19 13:25 Urine Blood Negative (Negative) 10/08/19 13:25 Urine Nitrite Negative (Negative) 10/08/19 13:25 Urine Bilirubin Negative (Negative) 10/08/19 13:25 Urine Urobilinogen <2.0 mg/dL (<2.0) 10/08/19 13:25 Ur Leukocyte Esterase Small (Negative) H 10/08/19 13:25 Urine RBC 21 /hpf (0-5) H 10/08/19 13:25 Urine WBC 11 /hpf (0-5) H 10/08/19 13:25 Ur Squamous Epith Cells 8 /hpf (0-4) H 10/08/19 13:25 Urine Bacteria Few /hpf (None) H 10/08/19 13:25 Urine Mucus Rare /hpf (None) H 10/08/19 13:25 Urine HCG, Qual Not Detected (Not Detectd) 10/08/19 13:25 Urine Opiates Screen Not Detected (NotDetected) 10/08/19 13:25 Ur Oxycodone Screen Not Detected (NotDetected) 10/08/19 13:25 Urine Methadone Screen Not Detected (NotDetected) 10/08/19 13:25 Ur Propoxyphene Screen Not Detected (NotDetected) 10/08/19 13:25 Ur Barbiturates Screen Not Detected (NotDetected) 10/08/19 13:25 U Tricyclic Antidepress Not Detected (NotDetected) 10/08/19 13:25 Ur Phencyclidine Scrn Not Detected (NotDetected) 10/08/19 13:25 Ur Amphetamines Screen Not Detected (NotDetected) 10/08/19 13:25 U Methamphetamines Scrn Not Detected (NotDetected) 10/08/19 13:25 U Benzodiazepines Scrn Not Detected (NotDetected) 10/08/19 13:25 Urine Cocaine Screen Not Detected (NotDetected) 10/08/19 13:25 U Marijuana (THC) Screen Not Detected (NotDetected) 10/08/19 13:25 10/09/19 13:51 IDENTIFYING DATA: Patient is a 39-year-old female with chronic medical history long with bipolar disorder who is currently disabled, single with no children and lives with her mother and apartment. HPI: Patient presented to the hospital yesterday with complaints of progressive depression along with suicidal ideations and plan. Patient stated that she has a chronic history of bipolar disorder and several medical conditions including mitochondrial disease and states that she was undergoing a MediPort replacement surgery and claims that she had a "medical trauma" during this procedure. She states that the anesthesia had failed at that time and claims that the doctor continued to do the procedure and states that she was in a state of shock and could not withdrawal her consent at that time. Patient claims that since then. Triggered her "PTSD from my childhood" and states that she has been on edge and has had high anxiety and ongoing and progressive depression. He states that she is easily startled and has self-hatred. Patient claims that she is also experiencing auditory hallucinations of voices telling her to kill herself or roll her wheelchair into traffic. She states that yesterday she was planning on overdosing and claims that her mother noticed her being "off" and she informed her mother of her plan and then she got brought into the emergency department for evaluation. Patient admits to a decline in her sleep approximately 4-5 hours per night, decrease in appetite and concentration. Patient admits to previous history of manic episodes including excessive spending and hypersexuality in the past. Patient currently admits to suicidal ideations however denies any intent or plan while on the unit. She denies any homicidal ideation intent or plan. At this time patient admits to auditory hallucinations which increase at times of stress. Patient denies any flight of ideas racing thoughts and increased in goal directed behavior. Patient denies using any recreational drugs at this time and denies any alcohol or cigarettes. PAST PSYCHIATRIC HISTORY: Patient states that she has had multiple hospitalizations on the psychiatric unit and her last admission was in February 2019. She claims that she follows up at [facility] with Dr. Silveira and was last seen earlier this month. Patient states that she is currently on Zoloft, BuSpar, clonidine, Cymbalta, Risperdal. Patient admits to 2 previous suicide attempts in the past overdosing twice. PMH: Admits to history of diabetes mellitus, DVT, neurological disorder, syncope, thyroid disorder, mitochondrial disease, gastroparesis, migraines. ALLERGIES: as per EMR CHEMICAL DEPENDENCY HISTORY: Denies FAMILY PSYCHIATRIC/SUBSTANCE USE HISTORY: States that both her parents have a history of depression and they both attempted suicide in the past. SOCIAL HISTORY: Patient claims that she was born and raised in [place] and also [facility]. She claims that she completed high school and did 5 years of college in [place]. 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 Patient is currently single and has no children and is currently on disability and lives in an apartment with her mother. MENTAL STATUS EXAM: General Appearance: Patient appears to be overweight, in a wheelchair, stated ag e is alert, directable and attempts to cooperate. Marginal hygiene and grooming. Behavior: Patient is calmly seated without any agitated behavior. There is to be somewhat anxious. Speech: Patient's speech is fluent and nonpressured. [place]. Mood/Affect: Patient reports their mood is depressed and anxious, affect is congruent Suicidality/Homicidality: Admits to suicidal ideations denies any intent or plan. Perceptions: Admits to auditory hallucinations, denies any visual hallucinations. Though content/process: There is no evidence of any delusional thought content and thought process is linear and goal-directed. [place] and thought process. Memory and concentration: AOX3, grossly intact for the purposes of this session. Can spell "WORLD" backwards Judgment and insight: poor STRENGTHS/WEAKNESSES: strength is that patient has good support at home, weaknesses that patient is impulsive and has a chronic medical history long with psychiatric history. INTELLECT: average IMPRESSIONS: Bipolar disorder, currently depressed History of PTSD Intellectual disability PLAN: -Patient is admitted under voluntary status to MHU for stabilization of psychiatric symptoms and safety. Patient signed adult voluntary form and medication consent and is placed in patient's chart. -Medications : Will start patient on Latuda 40 mg with dinner for psychosis/bipolar depression. We'll restart patient on Zoloft 200 mg daily for mood/anxiety. We'll increase BuSpar to 15 mg twice a day for anxiety. We'll start trazodone 50 mg daily at bedtime for insomnia/mood. Melatonin 5 mg daily at bedtime for sleep. Discontinued duloxetine at this time. -Ativan PRN for agitation/aggression -Patient will need to be seen by internal medicine for chronic medical issues and management. -Patient was informed of the risks, benefits and side effects of the medication and patient verbally consented to taking the medications. Patient signed med consent form and was placed in chart. -NRT -not needed as patient does not smoke. -SW on board for discharge planning 10/09/19 14:01
[2019-10-09] MEDS: ONDANSETRON 4 MG TAB PO PRN (14:45)
[2019-10-09] MEDS ORDERED: METOPROLOL SUCCINATE (ER) 50 MG TAB.ER.24H PO PRN (15:00)
[2019-10-09] MEDS: LURASIDONE 40 MG TAB PO SCH (17:26)
[2019-10-09 17:33] LABS: Glucose,Whole Blood 116 mg/dL (75-99)
[2019-10-09 17:42] LABS: Hemoglobin A1C 8.3 % (4.0-6.0)
--- NOTE | 2019-10-09 18:40 | P.CONS ---
History of Present Illness - History of Present Illness this is a pleasant 39 yo F with past medical history of hypertension , recurrent UTI, migrain , hypothyroidism , diabetes mellitus, diabetic neuropathy , gerd, lupus anticoagulant on xarelto , deep venous thrombosis, pituitary microadenoma, polyneuropathy ,polycystic ovarian syndrome, dysautonomia-progressive neurologial disorder , she is ambulates using a wheel chair, she is on multiple medication , [facility] for signs and symptoms of depression and suicidal ideation , medical consult was requested for medical managment ,however pt denies chest pain , no dyspnea, no change in urine or bowel habit , no nausea or vomiting , no abd pain , she is tolerating diet well . no fever. vitals looks stable , labs reviewed showing wbc of 11.8k, hb 12.2, platelets of 525k, electrolytes and creatinine are withing normal limits, TSH 0.2, she is mildly tachycardic, urine preg test is negative Review of Systems CONSTITUTIONAL: No fever, no malaise, no fatigue. HEENT: No recent visual problems or hearing problems. Denied any sore throat. CARDIOVASCULAR: No orthopnea, PND, no palpitations, no syncope. PULMONARY: No shortness of breath, no cough, no hemoptysis. GASTROINTESTINAL: No diarrhea, no nausea, no vomiting, no abdominal pain. Normoactive bowel sounds. NEUROLOGICAL: No headaches, no weakness, no numbness. HEMATOLOGICAL: Denies any bleeding or petechiae. GENITOURINARY: Denies any burning micturition, frequency, or urgency. MUSCULOSKELETAL/RHEUMATOLOGICAL: Denies any joint pain, swelling, or any muscle pain. ENDOCRINE: Denies any polyuria or polydipsia. Past Medical History Past Medical History: Chest Pain / Angina, CVA/TIA, Diabetes Mellitus, Deep Vein Thrombosis (DVT), Neurologic Disorder, Syncope, Thyroid Disorder Additional Past Medical History / Comment(s): STROKE LIKE EPISODE D/T MITOCHRONDIAL DISEASE HAD WORK UP DONE AT [facility]. Dysautonomia-progressive neurological disorder, lupus/LUPUS ANTICOAGULANTS, ana maria's disease, lymphedema Lt arm d/t DVTs , v-tach, pituitary microadenoma. patent foramen ovale, narcolepsy, gastropareis, IDDM type II, falls, orthostatic hypotension/syncope, migraines with hemiplegia, pernicious anemia, polycystic ovarian syndrome, neuropathy bilateral legs/feet - mild, uti's. History of Any Multi-Drug Resistant Organisms: ESBL, MRSA Year Discovered:: 03/09/17 MRSA/ 05/17/18 ESBL MDRO Source:: MRSA LEFT ARM,/ESBL URINE ECOLI Past Surgical History: Uterine Ablation Additional Past Surgical History / Comment(s): colonscopy/egd, angie, PORT-A -CATH INSERTION 04-28-18 Past Anesthesia/Blood Transfusion Reactions: No Reported Reaction Additional Past Anesthesia/Blood Transfusion Reaction / Comm: patient states "It takes a lot of anesthesia for my body to react". Pt has received blood in past without reaction. Smoking Status: Never smoker - Past Family History Brother(s) Family Medical History: Diabetes Mellitus, Hyperlipidemia, Hypertension Additional Family Medical History / Comment(s): Patient states she has 1 brother with no major medical problems. Father Family Medical History: Diabetes Mellitus, Hyperlipidemia, Hypertension Additional Family Medical History / Comment(s): DAD IS 70 YEARS OLD. Patient states she does not have any contact with her father and does not know his medical history. Mother Family Medical History: CVA/TIA, Deep Vein Thrombosis (DVT) Additional Family Medical History / Comment(s): antiphospholipid antibody syndrome Medications and Allergies Home Medications Medication Instructions Recorded Confirmed Type Rivaroxaban [Xarelto] 20 mg PO HS 03/09/17 10/09/19 History tiZANidine [Zanaflex] 8 mg PO HS 03/09/17 10/09/19 History Metoclopramide [Reglan] 10 mg PO ACHS 07/29/17 10/09/19 History Fenofibrate 160 mg PO HS 09/01/18 10/09/19 History tiZANidine [Zanaflex] 4 mg PO BID@0900,1500 12/04/18 10/09/19 History Levothyroxine Sodium [Synthroid] 100 mcg PO DAILY 01/16/19 10/09/19 History Cyanocobalamin (Vitamin B-12) 2,000 mcg PO DAILY 01/22/19 10/09/19 History [Vitamin B-12] Levothyroxine Sodium [Synthroid] 125 mcg PO DAILY 01/22/19 10/09/19 History Meloxicam [Mobic] 15 mg PO DAILY 03/01/19 10/09/19 History diphenhydrAMINE [Benadryl] 150 mg PO HS PRN 03/01/19 10/09/19 History Gabapentin [Neurontin] 400 mg PO TID cap 03/07/19 10/09/19 Rx Modafinil [Provigil] 200 mg PO DAILY tab 03/07/19 10/09/19 Rx cloNIDine HCL [Catapres] 0.1 mg PO BID 30 Days #60 tab 03/07/19 10/09/19 Rx Ondansetron HCl [Zofran] 8 mg PO Q6H PRN 03/12/19 10/09/19 History Prochlorperazine Suppository 25 mg RECTAL Q8H PRN 03/12/19 10/09/19 History [Compazine] Promethazine [Phenergan] 25 mg PO Q4-6H PRN 03/12/19 10/09/19 History Sertraline [Zoloft] 200 mg PO DAILY 04/16/19 10/09/19 History cloNIDine HCL [Catapres] 0.1 mg PO DAILY PRN 04/16/19 10/09/19 History risperiDONE [RisperDAL] 0.5 mg PO HS 04/16/19 10/09/19 History traMADol HCL [Ultram] 50 mg PO BID PRN 06/28/19 10/09/19 History Cetirizine HCl [Zyrtec] 10 mg PO DAILY 07/12/19 10/09/19 History DULoxetine HCL [Cymbalta] 60 mg PO BID 07/12/19 10/09/19 History Methenamine Hippurate 1 gm PO BID 07/12/19 10/09/19 History Metoprolol Succinate [Toprol Xl] 50 mg PO DAILY@1500 PRN 07/12/19 10/09/19 H istory Trimethoprim [Trimpex] 100 mg PO HS 07/12/19 10/09/19 History Dexlansoprazole [Dexilant] 60 mg PO DAILY 10/08/19 10/09/19 History Ergocalciferol [Vitamin D2] 50,000 unit PO TAYLOR 10/08/19 10/09/19 History Fluticasone Nasal [place] [Flonase 1 spray EA NOSTRIL DAILY 10/08/19 10/09/19 History Nasal [place]] Insulin Aspart [NovoLOG Flexpen] See Protocol SQ ACHS 10/08/19 10/09/19 History Insulin Glargine,Hum.rec.anlog 50 unit SQ HS 10/08/19 10/09/19 History [Lantus Solostar] Magnesium Oxide [Mag-Ox] 250 mg PO HS 10/08/19 10/09/19 History Melatonin 5 mg PO HS 10/08/19 10/09/19 History Metoprolol Succinate [Toprol XL] 50 mg PO DAILY 10/08/19 10/09/19 History Mirabegron [Myrbetriq] 25 mg PO DAILY 10/08/19 10/09/19 History Rizatriptan Benzoate [Rizatriptan] 5 mg PO BID PRN 10/08/19 10/09/19 History Topiramate [Topamax] 200 mg PO BID 10/08/19 10/09/19 History busPIRone HCl [Buspar] 10 mg PO BID 10/08/19 10/09/19 History Linaclotide [Linzess] 145 mcg PO DAILY 10/09/19 10/09/19 History Allergies Allergy/AdvReac Type Severity Reaction Status Date / Time barium sulfate Allergy Anaphylaxis Verified 10/09/19 12:57 doxepin [Doxepin] Allergy Anaphylaxis Verified 10/09/19 12:57 ephedrine Allergy Unknown Verified 10/09/19 12:57 ertapenem [From Invanz] Allergy Rash/Hives Verified 10/09/19 12:57 influenza virus vaccine, Allergy severe Verified 10/09/19 12:57 specific swelling [Influenza Virus and hives Vacc,Specific] peanut oil AdvReac Severe Nausea & Verified 10/09/19 12:57 Vomiting,itching doxycycline AdvReac Nausea & Verified 10/09/19 12:57 Vomiting & Diarrhea peanut AdvReac Nausea & Verified 10/09/19 12:57 Vomiting Pertussis Vaccines AdvReac fever/seizu Verified 10/09/19 12:57 re pseudoephedrine AdvReac Chest Pain Verified 10/09/19 12:57 pseudoephedrine HCl AdvReac Chest Pain Verified 10/09/19 12:57 [From Sudafed] sulfamethoxazole AdvReac Nausea & Verified 10/09/19 12:57 [From Bactrim] Vomiting trimethoprim [From Bactrim] AdvReac Nausea & Verified 10/09/19 12:57 Vomiting Physical Exam Vitals: Vital Signs Temp Pulse Pulse Pulse Resp BP BP 10/09/19 12:52 98.6 F 85 100/65 10/09/19 08:30 92 16 10/09/19 04:55 98.6 F 85 15 100/65 10/08/19 18:49 98.6 F 111 H 18 10/08/19 16:51 98.8 F 107 H 18 125/87 BP Pulse Ox 10/09/19 12:52 10/09/19 08:30 124/77 10/09/19 04:55 10/08/19 18:49 144/98 96 10/08/19 16:51 98 GENERAL: The patient is alert and oriented x3, not in any acute distress. obese HEENT: Pupils are round and equally reacting to light. EOMI. No scleral icterus. No conjunctival pallor. Normocephalic, atraumatic. No pharyngeal erythema. No thyromegaly. CARDIOVASCULAR: S1 and S2 present. No murmurs, rubs, or gallops. PULMONARY: Chest is clear to auscultation, no wheezing or crackles. ABDOMEN: Soft, nontender, nondistended, normoactive bowel sounds. No palpable organomegaly. MUSCULOSKELETAL: No joint swelling or deformity. EXTREMITIES: No cyanosis, clubbing, or pedal edema. -NEUROLOGICAL: Gross neurological examination did not reveal any focal deficits. pt is on wheel chair for ambulation SKIN: No rashes. Results CBC & Chem 7: 10/09/19 08:01 10/09/19 08:01 Labs: Abnormal Lab Results - Last 24 Hours (Table) 10/08/19 10/08/19 10/08/19 Range/Units 13:25 17:49 20:44 WBC (3.8-10.6) k/uL Plt Count (150-450) k/uL Neutrophils # (1.3-7.7) k/uL Glucose (74-99) mg/dL POC Glucose (mg/dL) 195 H 178 H (75-99) mg/dL Triglycerides (<150) mg/dL Cholesterol (<200) mg/dL LDL Cholesterol, Calc (0-99) mg/dL HDL Cholesterol (40-60) mg/dL TSH (0.465-4.680) mIU/L Urine Appearance Cloudy H (Clear) Ur Leukocyte Esterase Small H (Negative) Urine RBC 21 H (0-5) /hpf Urine WBC 11 H (0-5) /hpf Ur Squamous Epith Cells 8 H (0-4) /hpf Urine Bacteria Few H (None) /hpf Urine Mucus Rare H (None) /hpf 10/09/19 10/09/19 10/09/19 Range/Units 07:51 08:01 08:01 WBC 11.8 H (3.8-10.6) k/uL Plt Count 525 H (150-450) k/uL Neutrophils # 8.2 H (1.3-7.7) k/uL Glucose 132 H (74-99) mg/dL POC Glucose (mg/dL) 133 H (75-99) mg/dL Triglycerides 324 H (<150) mg/dL Cholesterol 258 H (<200) mg/dL LDL Cholesterol, Calc 159 H (0-99) mg/dL HDL Cholesterol 34 L (40-60) mg/dL TSH 0.276 L (0.465-4.680) mIU/L Urine Appearance (Clear) Ur Leukocyte Esterase (Negative) Urine RBC (0-5) /hpf Urine WBC (0-5) /hpf Ur Squamous Epith Cells (0-4) /hpf Urine Bacteria (None) /hpf Urine Mucus (None) /hpf 10/09/19 Range/Units 12:28 WBC (3.8-10.6) k/uL Plt Count (150-450) k/uL Neutrophils # (1.3-7.7) k/uL Glucose (74-99) mg/dL POC Glucose (mg/dL) 134 H (75-99) mg/dL Triglycerides (<150) mg/dL Cholesterol (<200) mg/dL LDL Cholesterol, Calc (0-99) mg/dL HDL Cholesterol (40-60) mg/dL TSH (0.465-4.680) mIU/L Urine Appearance (Clear) Ur Leukocyte Esterase (Negative) Urine RBC (0-5) /hpf Urine WBC (0-5) /hpf Ur Squamous Epith Cells (0-4) /hpf Urine Bacteria (None) /hpf Urine Mucus (None) /hpf Assessment and Plan Assessment: depression and suicidal ideation , management as per primary psych team acute UTI with mild SIRS with low grade tachycardia and leukocytosis low TSH hypertension recurrent UTI migraine hyperlipidemia hypothyroidism diabetes mellitus diabetic neuropathy gerd lupus anticoagulant on xarelto deep venous thrombosis pituitary microadenoma polyneuropathy polycystic ovarian syndrome dysautonomia-progressive neurologial disorder she is ambulates using a wheel chair Plan: this is a pleasant 39 yo F who presents with s/s of depression and Suicidal ideation ,which will be managed as per primary psych team, pt looks has UTI with mild sepsis , present on admission , so we will start keflex and send urine culture , repeat TSH and T4 , c/w insulin , levothyroxine and xarelto Continue with the same treatment , continue with symptomatic treatment , resume home medication , monitor lytes and vitals, . GI and DVT prophylaxis , further recommendation based upon pt clinical course and progress DVT prophylaxis XARELTO GI prophylaxis Protonix we recommend pt follows up with her pcp within one week of discharge thank you for consulting us
[2019-10-09] MEDS: CEPHALEXIN 500 MG CAP PO SCH (19:47)
[2019-10-09 20:10] LABS: Glucose,Whole Blood 198 mg/dL (75-99)
[2019-10-09] MEDS: RIVAROXABAN 20 MG TAB PO SCH (20:39)
[2019-10-09] MEDS: FENOFIBRATE 160 MG TAB PO SCH (20:39)
[2019-10-09] MEDS: TRIMETHOPRIM 100 MG TAB PO SCH (20:39)
[2019-10-09] MEDS: MAGNESIUM OXIDE 400 MG TAB PO SCH (20:41)
[2019-10-09] MEDS: MELATONIN 5 MG TABLET PO SCH (20:48)
[2019-10-09] MEDS: busPIRone HCl 5 MG TAB PO SCH (20:48)
[2019-10-09] MEDS: INSULIN DETEMIR (LEVEMIR) 100 UNIT/ML SYR SQ SCH (20:49)
[2019-10-09] MEDS ORDERED: traZODone HCL 50 MG TAB PO SCH (21:00)
[2019-10-09] MEDS ORDERED: LURASIDONE 40 MG TAB PO SCH (21:00)
[2019-10-10] MEDS: LEVOTHYROXINE 125 MCG TAB PO SCH (06:29)
[2019-10-10] MEDS: LEVOTHYROXINE 100 MCG TAB PO SCH (06:29)
[2019-10-10 07:52] LABS: Glucose,Whole Blood 131 mg/dL (75-99)
[2019-10-10] MEDS: INSULIN ASPART (NovoLOG) 100 UNIT/ML VIAL SQ SCH ×4 (08:08→20:44)
[2019-10-10] MEDS: FLUTICASONE 50MCG/SPRAY NASAL 16GM EA NOSTRIL SCH (08:58)
[2019-10-10] MEDS: CYANOCOBALAMIN 500 MCG TAB PO SCH (09:00)
[2019-10-10] MEDS: PANTOPRAZOLE 40 MG TABLET PO SCH (09:00)
[2019-10-10] MEDS: METOCLOPRAMIDE 10 MG TAB PO SCH ×4 (09:00→20:59)
[2019-10-10] MEDS: busPIRone HCl 5 MG TAB PO SCH (09:01)
[2019-10-10] MEDS: CEPHALEXIN 500 MG CAP PO SCH ×3 (09:01→21:01)
[2019-10-10] MEDS: cloNIDine HCL 0.1 MG TAB PO SCH ×2 (09:01→21:00)
[2019-10-10] MEDS: LORATADINE 10 MG TAB PO SCH (09:02)
[2019-10-10] MEDS: MELOXICAM 7.5 MG TAB PO SCH (09:02)
[2019-10-10] MEDS: GABAPENTIN 400 MG CAP PO SCH ×3 (09:02→20:46)
[2019-10-10] MEDS: TOPIRAMATE 100 MG TAB PO SCH ×2 (09:03→21:00)
[2019-10-10] MEDS: tiZANidine 4 MG TAB PO SCH ×3 (09:03→21:01)
[2019-10-10] MEDS: SERTRALINE 100 MG TAB PO SCH (09:03)
[2019-10-10] MEDS: MODAFINIL 200 MG TAB PO SCH (09:03)
[2019-10-10] MEDS: METOPROLOL SUCCINATE (ER) 50 MG TAB.ER.24H PO SCH (09:03)
[2019-10-10] MEDS: NON FORMULARY DRUG (Mirabegron [Myrbetriq] 25 MG) PO SCH (09:04)
[2019-10-10] MEDS: METHENAMINE HIPPURATE 1 GM PO SCH ×2 (09:04→21:13)
[2019-10-10] MEDS: traMADol 50 MG TAB PO PRN (09:08)
[2019-10-10] MEDS: PROMETHAZINE 25 MG TAB PO PRN (09:24)
--- NOTE | 2019-10-10 12:11 | P.PN ---
Progress Note - Text Progress Note Date: 10/10/19 Interval History: Patient was seen in taking part in group today and interacting with other taye ents playing a board game and was agreeable to speak to video games storywriter in the office. Patient states that she had a difficult time sleeping last night on the 50 mg of trazodone and requested to have it titrated up. Patient also claimed that she feels that the medications have not started helping her yet and continues to feel depressed and anxious. She states that she is agreeable to continue on the same medications and have the dose increased as needed. Process Description Writer reviewed medications once again with patient and the possibility of polypharmacy at play. Patient complained of having difficulties expressing herself with the words and was wondering if this was related to her arm depression or her mitochondrial or neurological disease. Patient claims that she is trying to distract herself to prevent the voices from coming back and also continues to have mild thoughts of suicide however denies any intent or plan while on the unit. She admits to having fair appetite and energy. Patient denies any homicidal ideations intent or plan at this time. Patient denies any visual hallucinations and denies any paranoia or delusions. Patient denies any side effects from the medications and has been compliant with meds. Mental Status Exam: General Appearance: Patient appears to be overweight, in a wheelchair, stated age is alert, directable and attempts to cooperate. Marginal hygiene and grooming. Behavior: Patient is calmly seated without any agitated behavior. Somewhat anxious however is cooperative. Speech: Patient's speech is fluent and nonpressured. [place]. Mood/Affect: Patient reports their mood is depressed/anxious, affect is congruent Suicidality/Homicidality: Admits to suicidal ideations denies any intent or plan. Perceptions: Admits to auditory hallucinations, denies any visual hallucinations. Though content/process: There is no evidence of any delusional thought content and thought process is linear and goal-directed. [place] and thought process. Memory and concentration: AOX3, grossly intact for the purposes of this session. Judgment and insight: poor improving mildly. Assessment Bipolar disorder, currently depressed History of PTSD Autism spectrum disorder Plan: -Patient continues to meet criteria for inpatient psychiatric admission for symptom stabilization and safety. Patient has signed adult voluntary form and medication consent and was placed in patient's chart. -Medications: Continue with Latuda 40mg with Dinner for psychosis/bipolar depression, we'll attempt to increase dose tomorrow. Continue with Zoloft 200 mg daily for mood/anxiety. We'll increase BuSpar to 20 mg twice a day for anxiety. We'll increase trazodone 100 mg daily at bedtime for insomnia/mood. Melatonin 5 mg daily at bedtime for sleep -When necessary Ativan for agitation/aggression. -NRT - not needed as patient does not smoke. -SW on board for discharge planning.
[2019-10-10 12:34] LABS: Glucose,Whole Blood 170 mg/dL (75-99)
[2019-10-10] MEDS: ONDANSETRON 4 MG TAB PO PRN (13:57)
[2019-10-10 17:33] LABS: Glucose,Whole Blood 141 mg/dL (75-99)
[2019-10-10] MEDS: LURASIDONE 40 MG TAB PO SCH (18:24)
[2019-10-10] MEDS: INSULIN DETEMIR (LEVEMIR) 100 UNIT/ML SYR SQ SCH (20:42)
[2019-10-10 20:43] LABS: Glucose,Whole Blood 191 mg/dL (75-99)
[2019-10-10] MEDS: MAGNESIUM OXIDE 400 MG TAB PO SCH (20:59)
[2019-10-10] MEDS: RIVAROXABAN 20 MG TAB PO SCH (20:59)
[2019-10-10] MEDS: MELATONIN 5 MG TABLET PO SCH (20:59)
[2019-10-10] MEDS ORDERED: traZODone HCL 100 MG TAB PO SCH (21:00)
[2019-10-10] MEDS: TRIMETHOPRIM 100 MG TAB PO SCH (21:00)
[2019-10-10] MEDS: FENOFIBRATE 160 MG TAB PO SCH (21:01)
[2019-10-10] MEDS: busPIRone HCl 10 MG TAB PO SCH (21:02)
[2019-10-11] MEDS: LEVOTHYROXINE 125 MCG TAB PO SCH (06:27)
[2019-10-11] MEDS: LEVOTHYROXINE 100 MCG TAB PO SCH (06:27)
[2019-10-11 07:40] LABS: Glucose,Whole Blood 174 mg/dL (75-99)
[2019-10-11] MEDS: INSULIN ASPART (NovoLOG) 100 UNIT/ML VIAL SQ SCH ×4 (07:47→20:20)
[2019-10-11] MEDS: PANTOPRAZOLE 40 MG TABLET PO SCH (08:29)
[2019-10-11] MEDS: CYANOCOBALAMIN 500 MCG TAB PO SCH (08:29)
[2019-10-11] MEDS: CEPHALEXIN 500 MG CAP PO SCH ×3 (08:29→21:40)
[2019-10-11] MEDS: cloNIDine HCL 0.1 MG TAB PO SCH ×2 (08:29→21:40)
[2019-10-11] MEDS: busPIRone HCl 10 MG TAB PO SCH ×2 (08:29→21:40)
[2019-10-11] MEDS: METOCLOPRAMIDE 10 MG TAB PO SCH ×4 (08:29→21:41)
[2019-10-11] MEDS: FLUTICASONE 50MCG/SPRAY NASAL 16GM EA NOSTRIL SCH (08:30)
[2019-10-11] MEDS: SERTRALINE 100 MG TAB PO SCH (08:30)
[2019-10-11] MEDS: tiZANidine 4 MG TAB PO SCH ×3 (08:30→21:42)
[2019-10-11] MEDS: TOPIRAMATE 100 MG TAB PO SCH ×2 (08:30→21:40)
[2019-10-11] MEDS: METOPROLOL SUCCINATE (ER) 50 MG TAB.ER.24H PO SCH (08:30)
[2019-10-11] MEDS: LORATADINE 10 MG TAB PO SCH (08:30)
[2019-10-11] MEDS: MELOXICAM 7.5 MG TAB PO SCH (08:33)
[2019-10-11] MEDS: GABAPENTIN 400 MG CAP PO SCH ×3 (08:33→21:39)
[2019-10-11] MEDS: ONDANSETRON 4 MG TAB PO PRN ×2 (08:36→18:32)
[2019-10-11] MEDS: MODAFINIL 200 MG TAB PO SCH (08:36)
[2019-10-11] MEDS: METHENAMINE HIPPURATE 1 GM PO SCH ×2 (09:20→21:41)
[2019-10-11] MEDS: NON FORMULARY DRUG (Mirabegron [Myrbetriq] 25 MG) PO SCH (09:21)
[2019-10-11 12:15] LABS: Basophils # (A) 0.1 k/uL (0-0.2); Basophils % (A) 1 %; Eosinophils # (A) 0.2 k/uL (0-0.7); Eosinophils % (A) 2 %; HCT 35.6 % (34.0-46.0); HGB 11.4 gm/dL (11.4-16.0); Lymphocytes # (A) 1.6 k/uL (1.0-4.8); Lymphocytes % (A) 15 %; MCH 28.6 pg (25.0-35.0); MCHC 32.2 g/dL (31.0-37.0); MCV 88.9 fL (80.0-100.0); Mean Platelet Volume 6.4; Monocytes # (A) 0.4 k/uL (0-1.0); Monocytes % (A) 4 %; Neutrophils # (A) 8.2 k/uL (1.3-7.7); Neutrophils % (A) 77 %; Platelet Count 413 k/uL (150-450); RDW 13.9 % (11.5-15.5); WBC 10.6 k/uL (3.8-10.6)
--- NOTE | 2019-10-11 12:34 | P.PN ---
Progress Note - Text Progress Note Date: 10/11/19 Interval History: Patient was seen in her room lying on her bed and was agreeable to speak to wr vick in the office. Patient states that she feels "the same" however when asked more details patient claims that she is able to distract herself more on the unit and has been having a mild improvement in her suicidal thoughts and also has been finding it easier to distract herself from the auditory hallucinations which are becoming less frequent. Patient states that she did have a strong urge to hurt herself yesterday however claims that the thought passed. She states that she is having a difficult time sleeping in her room with 2 other patients and states that one of them had medical problems overnight which she claims that she was "sensitive to" and had difficulty sleeping. Patient requested to have her trazodone increased at this time. Patient also states that she is feeling some improvement on feeling "on edge". She reports some mild improvement in her anxiety. Patient spoke about possible discharge soon and claims that she would like to be out of the hospital before Thanksgiving to spend with her family. She admits to having fair appetite and energy. Patient denies any homicidal ideations intent or plan at this time. Patient denies any visual hallucinations and denies any paranoia or delusions. Patient denies any side effects from the medications and has been compliant with meds. Mental Status Exam: General Appearance: Patient appears to be overweight, in a wheelchair, stated age is alert, directable and attempts to cooperate. Marginal hygiene and grooming. Behavior: Patient is calmly seated without any agitated behavior. Less anxious today and is cooperative. Speech: Patient's speech is fluent and nonpressured. [place]. Mood/Affect: Patient reports their mood is mildly improving with regards to depressed/anxious, affect is congruent Suicidality/Homicidality: Admits to suicidal ideations denies any intent or plan. Perceptions: Admits to auditory hallucinations, denies any visual hallucinations. Though content/process: There is no evidence of any delusional thought content and thought process is linear and goal-directed. [place] and thought process. Memory and concentration: AOX3, grossly intact for the purposes of this session. Judgment and insight: improving mildly. Assessment Bipolar disorder, currently depressed History of PTSD Autism spectrum disorder Plan: -Patient continues to meet criteria for inpatient psychiatric admission for symptom stabilization and safety. Patient has signed adult voluntary form and medication consent and was placed in patient's chart. -Medications: Increased Latuda 60mg with dinner for psychosis/bipolar depression. Continue with Zoloft 200 mg daily for mood/anxiety. We'll increase BuSpar to 30 mg twice a day for anxiety. We'll increase trazodone 150 mg daily at bedtime for insomnia/mood. Melatonin 5 mg daily at bedtime for sleep -When necessary Ativan for agitation/aggression. -NRT - not needed as patient does not smoke. -SW on board for discharge planning. We'll attempt to speak with nurses about patient having another room to help her with sleep. Likely discharge in 2-3 days.
[2019-10-11 12:39] LABS: Glucose,Whole Blood 149 mg/dL (75-99)
[2019-10-11 15:17] LABS: Appearance,Urine Clear (Clear); Bilirubin,Urine Negative (Negative); Blood,Urine Negative (Negative); Color,Urine Yellow; Glucose,Urine (UA) Negative (Negative); Ketones,Urine Negative (Negative); Leukocyte Esterase,Urine Trace (Negative); Mucus,Urine Rare /hpf; Nitrite,Urine Negative (Negative); PH, Urine 5.5 (5.0-8.0); Protein,Urine Negative (Negative); RBC,Urine 1 /hpf (0-5); Specific Gravity,Urine 1.022 (1.001-1.035); Squamous Epithelial Cell,Urine 1 /hpf (0-4); Urobilinogen,Urine <2.0 mg/dL (<2.0); WBC,Urine 1 /hpf (0-5)
[2019-10-11 17:50] LABS: Glucose,Whole Blood 130 mg/dL (75-99)
[2019-10-11] MEDS ORDERED: LURASIDONE 20 MG TAB PO SCH (18:00)
[2019-10-11 19:57] LABS: Glucose,Whole Blood 230 mg/dL (75-99)
[2019-10-11] MEDS: INSULIN DETEMIR (LEVEMIR) 100 UNIT/ML SYR SQ SCH (20:20)
[2019-10-11] MEDS: traZODone HCL 50 MG TAB PO SCH (21:39)
[2019-10-11] MEDS: MELATONIN 5 MG TABLET PO SCH (21:40)
[2019-10-11] MEDS: RIVAROXABAN 20 MG TAB PO SCH (21:41)
[2019-10-11] MEDS: FENOFIBRATE 160 MG TAB PO SCH (21:42)
[2019-10-11] MEDS: MAGNESIUM OXIDE 400 MG TAB PO SCH (21:43)
[2019-10-11] MEDS: TRIMETHOPRIM 100 MG TAB PO SCH (21:44)
[2019-10-12] MEDS: LEVOTHYROXINE 125 MCG TAB PO SCH (06:33)
[2019-10-12] MEDS: LEVOTHYROXINE 100 MCG TAB PO SCH (06:33)
[2019-10-12 07:42] LABS: Glucose,Whole Blood 139 mg/dL (75-99)
[2019-10-12] MEDS: PANTOPRAZOLE 40 MG TABLET PO SCH (07:53)
[2019-10-12] MEDS: METOCLOPRAMIDE 10 MG TAB PO SCH ×4 (07:53→21:14)
[2019-10-12] MEDS: FLUTICASONE 50MCG/SPRAY NASAL 16GM EA NOSTRIL SCH (08:20)
[2019-10-12] MEDS: busPIRone HCl 10 MG TAB PO SCH ×2 (08:21→21:14)
[2019-10-12] MEDS: cloNIDine HCL 0.1 MG TAB PO SCH ×2 (08:22→21:14)
[2019-10-12] MEDS: GABAPENTIN 400 MG CAP PO SCH ×3 (08:22→21:13)
[2019-10-12] MEDS: CEPHALEXIN 500 MG CAP PO SCH ×2 (08:22→15:36)
[2019-10-12] MEDS: CYANOCOBALAMIN 500 MCG TAB PO SCH (08:22)
[2019-10-12] MEDS: NON FORMULARY DRUG (Mirabegron [Myrbetriq] 25 MG) PO SCH (08:23)
[2019-10-12] MEDS: METHENAMINE HIPPURATE 1 GM PO SCH (08:23)
[2019-10-12] MEDS: METOPROLOL SUCCINATE (ER) 50 MG TAB.ER.24H PO SCH (08:23)
[2019-10-12] MEDS: LORATADINE 10 MG TAB PO SCH (08:23)
[2019-10-12] MEDS: MODAFINIL 200 MG TAB PO SCH (08:24)
[2019-10-12] MEDS: SERTRALINE 100 MG TAB PO SCH (08:24)
[2019-10-12] MEDS: MELOXICAM 7.5 MG TAB PO SCH (08:24)
[2019-10-12] MEDS: tiZANidine 4 MG TAB PO SCH ×3 (08:24→21:14)
[2019-10-12] MEDS: TOPIRAMATE 100 MG TAB PO SCH ×2 (08:24→21:15)
[2019-10-12] MEDS: INSULIN ASPART (NovoLOG) 100 UNIT/ML VIAL SQ SCH ×4 (08:52→21:11)
--- NOTE | 2019-10-12 10:20 | P.PN ---
Progress Note - Text Progress Note Date: 10/12/19 Interval History: Patient was seen taking part in group and was agreeable to speak to travel writer in the office. Patient states that she is feeling more mild improvement with regards to her "negative thoughts". Patient describes being able to distract herself more and having a decrease in her suicidal thoughts at this time. Patient also claimed that her command hallucinations have decreased in frequency and intensity over the past night. Patient claims that she would like to have her clonidine decreased and she feels that it is affecting her blood pressure. Patient spoke about her significant loss of her independence and her health deteriorating over the past few years. 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 Patient states that she was moved to another room overnight and has a private room at this time and claims to have slept much better and thanked travel writer. Patient wants to remain on the same dose of trazodone at this time. She reports some mild improvement in her anxiety. Patient asked once again to have her mother come in and outside of visiting hours as a request. She admits to having fair appetite and energy. Patient denies any homicidal ideations intent or plan at this time. Patient denies any visual hallucinations and denies any paranoia or delusions. Patient denies any side effects from the medications and has been compliant with meds. Mental Status Exam: General Appearance: Patient appears to be overweight, in a wheelchair, stated age is alert, directable and attempts to cooperate. Marginal hygiene and grooming. Behavior: Patient is calmly seated without any agitated behavior. Cooperative today. Speech: Patient's speech is fluent and nonpressured. [place]. Mood/Affect: Patient reports their mood is mildly improving with regards to depressed/anxious, affect is congruent Suicidality/Homicidality: Admits to suicidal ideations, decreasing in frequency and intensity. Perceptions: Admits to auditory hallucinations, denies any visual hallucinations. Though content/process: There is no evidence of any delusional thought content and thought process is linear and goal-directed. [place] and thought process. Memory and concentration: AOX3, grossly intact for the purposes of this session. Judgment and insight: improving mildly. Assessment Bipolar disorder, currently depressed History of PTSD Autism spectrum disorder Plan: -Patient continues to meet criteria for inpatient psychiatric admission for symptom stabilization and safety. Patient has signed adult voluntary form and medication consent and was placed in patient's chart. -Medications: Continue with Latuda 60mg with dinner for psychosis/bipolar depression, plan will be to increase dose to 80 mg with dinner tomorrow and cont inue on throughout the weekend if tolerated (order already placed). Continue with Zoloft 200 mg daily for mood/anxiety. Continue with BuSpar to 30 mg twice a day for anxiety. Continue with trazodone 150 mg daily at bedtime for insomnia/mood, may be increased if needed over the weekend. Melatonin 5 mg daily at bedtime for sleep. Clonidine decreased to 0.1 mg daily at bedtime for anxiety. -When necessary Ativan for agitation/aggression. -NRT - not needed as patient does not smoke. -SW on board for discharge planning. We'll speak with nursing staff to allow patient to have mother visit on off hours today due to transportation issues. Likely discharge early next week. Patient will be following up with her counselor and psychiatrist at [facility].
[2019-10-12 12:44] LABS: Glucose,Whole Blood 140 mg/dL (75-99)
[2019-10-12] MEDS: PROMETHAZINE 25 MG TAB PO PRN (13:18)
[2019-10-12] MEDS: MYRBETRIQ 25 MG PO SCH (17:22)
[2019-10-12 17:28] LABS: Glucose,Whole Blood 162 mg/dL (75-99)
[2019-10-12] MEDS ORDERED: LURASIDONE 20 MG TAB PO SCH (18:00)
[2019-10-12] MEDS ORDERED: LURASIDONE 80 MG TAB PO SCH (18:00)
[2019-10-12 20:23] LABS: Glucose,Whole Blood 191 mg/dL (75-99)
[2019-10-12] MEDS: INSULIN DETEMIR (LEVEMIR) 100 UNIT/ML SYR SQ SCH (21:12)
[2019-10-12] MEDS: MELATONIN 5 MG TABLET PO SCH (21:13)
[2019-10-12] MEDS: MAGNESIUM OXIDE 400 MG TAB PO SCH (21:13)
[2019-10-12] MEDS: FENOFIBRATE 160 MG TAB PO SCH (21:13)
[2019-10-12] MEDS: TRIMETHOPRIM 100 MG TAB PO SCH (21:13)
[2019-10-12] MEDS: RIVAROXABAN 20 MG TAB PO SCH (21:14)
[2019-10-12] MEDS: traZODone HCL 50 MG TAB PO SCH (21:15)
[2019-10-12] MEDS: HIPREX 1 GM PO SCH (21:16)
[2019-10-13] MEDS: LEVOTHYROXINE 100 MCG TAB PO SCH (06:04)
[2019-10-13] MEDS: LEVOTHYROXINE 125 MCG TAB PO SCH (06:04)
[2019-10-13 07:47] LABS: Glucose,Whole Blood 166 mg/dL (75-99)
[2019-10-13] MEDS: METOCLOPRAMIDE 10 MG TAB PO SCH ×4 (07:48→21:34)
[2019-10-13] MEDS: PANTOPRAZOLE 40 MG TABLET PO SCH (07:48)
[2019-10-13] MEDS: INSULIN ASPART (NovoLOG) 100 UNIT/ML VIAL SQ SCH ×4 (07:48→21:31)
[2019-10-13] MEDS: LORATADINE 10 MG TAB PO SCH (08:33)
[2019-10-13] MEDS: GABAPENTIN 400 MG CAP PO SCH ×3 (08:33→21:34)
[2019-10-13] MEDS: FLUTICASONE 50MCG/SPRAY NASAL 16GM EA NOSTRIL SCH (08:33)
[2019-10-13] MEDS: CYANOCOBALAMIN 500 MCG TAB PO SCH (08:33)
[2019-10-13] MEDS: busPIRone HCl 10 MG TAB PO SCH ×2 (08:33→21:34)
[2019-10-13] MEDS: HIPREX 1 GM PO SCH ×2 (08:34→21:39)
[2019-10-13] MEDS: MYRBETRIQ 25 MG PO SCH (08:35)
[2019-10-13] MEDS: METOPROLOL SUCCINATE (ER) 50 MG TAB.ER.24H PO SCH (08:35)
[2019-10-13] MEDS: MODAFINIL 200 MG TAB PO SCH (08:36)
[2019-10-13] MEDS: tiZANidine 4 MG TAB PO SCH ×3 (08:36→21:34)
[2019-10-13] MEDS: SERTRALINE 100 MG TAB PO SCH (08:36)
[2019-10-13] MEDS: TOPIRAMATE 100 MG TAB PO SCH ×2 (08:36→21:34)
[2019-10-13] MEDS: MELOXICAM 7.5 MG TAB PO SCH (08:37)
--- NOTE | 2019-10-13 10:46 | P.PN ---
Progress Note - Text Progress Note Date: 10/13/19 Interval history: Patient is seen in cross coverage today. She reports that she is feeling a little better mood [place]. She describes that she can't take Imitrex and typically takes Maxalt. She also has a questionable another one of her other medications. She does describe a little mood improvement. She reports that she is now just having more passive suicidal thoughts and her auditory hallucinations are less prominent. She does not seem to voice any adverse psychotropic medication side effects. Mental status exam: She is alert and cooperative with the interview. She describes her mood as a little improved. She reports that regarding thoughts of suicide she states just having passive thoughts of suicide currently. She states her auditory hallucinations are less prominent and denies any current auditory hallucinations. She does not show any agitation. She does not verbalize any thoughts of harm to others. Plan: Patient be maintained on current psychotropic medication regimen. We'll have medical follow-up regarding her questions on this medication regimen. Imitrex is DC'd as she reports she cannot take that. We'll continue to cover this patient through the weekend.
[2019-10-13 12:36] LABS: Glucose,Whole Blood 186 mg/dL (75-99)
[2019-10-13] MEDS: ONDANSETRON 4 MG TAB PO PRN (13:10)
[2019-10-13] MEDS: traMADol 50 MG TAB PO PRN (14:21)
[2019-10-13 17:26] LABS: Glucose,Whole Blood 251 mg/dL (75-99)
[2019-10-13] MEDS: LURASIDONE 80 MG TAB PO SCH (17:35)
[2019-10-13] MEDS: LINACLOTIDE 145 MCG PO SCH (18:19)
[2019-10-13] MEDS: LORazepam 2 MG/ML INJ IM PRN (18:24)
[2019-10-13 20:23] LABS: Glucose,Whole Blood 192 mg/dL (75-99)
[2019-10-13] MEDS: INSULIN DETEMIR (LEVEMIR) 100 UNIT/ML SYR SQ SCH (21:33)
[2019-10-13] MEDS: traZODone HCL 50 MG TAB PO SCH (21:33)
[2019-10-13] MEDS: FENOFIBRATE 160 MG TAB PO SCH (21:33)
[2019-10-13] MEDS: TRIMETHOPRIM 100 MG TAB PO SCH (21:34)
[2019-10-13] MEDS: MAGNESIUM OXIDE 400 MG TAB PO SCH (21:34)
[2019-10-13] MEDS: MELATONIN 5 MG TABLET PO SCH (21:34)
[2019-10-13] MEDS: cloNIDine HCL 0.1 MG TAB PO SCH (21:34)
[2019-10-13] MEDS: RIVAROXABAN 20 MG TAB PO SCH (21:35)
[2019-10-14] MEDS: LEVOTHYROXINE 100 MCG TAB PO SCH (06:04)
[2019-10-14] MEDS: LEVOTHYROXINE 125 MCG TAB PO SCH (06:04)
[2019-10-14] MEDS: LINACLOTIDE 145 MCG PO SCH (07:27)
[2019-10-14 07:43] LABS: Glucose,Whole Blood 159 mg/dL (75-99)
[2019-10-14] MEDS: INSULIN ASPART (NovoLOG) 100 UNIT/ML VIAL SQ SCH ×4 (07:49→20:49)
[2019-10-14] MEDS: busPIRone HCl 10 MG TAB PO SCH ×2 (08:30→20:51)
[2019-10-14] MEDS: CYANOCOBALAMIN 500 MCG TAB PO SCH (08:30)
[2019-10-14] MEDS: PANTOPRAZOLE 40 MG TABLET PO SCH (08:30)
[2019-10-14] MEDS: METOCLOPRAMIDE 10 MG TAB PO SCH ×4 (08:30→20:51)
[2019-10-14] MEDS: FLUTICASONE 50MCG/SPRAY NASAL 16GM EA NOSTRIL SCH (08:31)
[2019-10-14] MEDS: LORATADINE 10 MG TAB PO SCH (08:31)
[2019-10-14] MEDS: GABAPENTIN 400 MG CAP PO SCH ×3 (08:31→21:02)
[2019-10-14] MEDS: HIPREX 1 GM PO SCH ×2 (08:31→20:52)
[2019-10-14] MEDS: MYRBETRIQ 25 MG PO SCH (08:32)
[2019-10-14] MEDS: METOPROLOL SUCCINATE (ER) 50 MG TAB.ER.24H PO SCH (08:32)
[2019-10-14] MEDS: SERTRALINE 100 MG TAB PO SCH (08:33)
[2019-10-14] MEDS: MODAFINIL 200 MG TAB PO SCH (08:33)
[2019-10-14] MEDS: MELOXICAM 7.5 MG TAB PO SCH (08:33)
[2019-10-14] MEDS: TOPIRAMATE 100 MG TAB PO SCH ×2 (08:33→20:50)
[2019-10-14] MEDS: tiZANidine 4 MG TAB PO SCH ×3 (08:33→20:51)
[2019-10-14] MEDS ORDERED: ERGOCALCIFEROL 50,000 UNIT CAP PO SCH (09:00)
[2019-10-14 12:48] LABS: Glucose,Whole Blood 158 mg/dL (75-99)
--- NOTE | 2019-10-14 15:42 | P.PN ---
Progress Note - Text Progress Note Date: 10/14/19 Interval history: Patient seen in [facility] again today. She relays that she had a difficult night last night. Her sleep is somewhat interrupted. She talks about her worry about her mom who is supposed to fish bait picker medicine for an antibiotic and has not picked it up yet. 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 She admits to having some thoughts of suicide last night. Regarding thoughts of suicide today she reports that she wouldn't tell because she doesn't want some of her items taken away. Mental status exam: She is alert and cooperative with the interview. She does not show any agitation. Her mood is depressed. Regarding thoughts of suicide she relates that she wouldn't tell because she doesn't want her items taken away. Regarding safety on the unit she says "I'll try." She does not show any active evidence of psychosis. She does not show any agitation. Plan: Patient will be placed on one-to-one precautions at this point in time to monitor for safety. Maintain current psychotropic medication regimen. Patient is encouraged to talk about stressors. Continue to monitor for medication side effects.
[2019-10-14] MEDS: LORazepam 2 MG/ML INJ IM PRN (16:18)
[2019-10-14 17:31] LABS: Glucose,Whole Blood 169 mg/dL (75-99)
[2019-10-14] MEDS: LURASIDONE 80 MG TAB PO SCH (17:42)
[2019-10-14 20:10] LABS: Glucose,Whole Blood 218 mg/dL (75-99)
[2019-10-14] MEDS: traZODone HCL 50 MG TAB PO SCH (20:50)
[2019-10-14] MEDS: INSULIN DETEMIR (LEVEMIR) 100 UNIT/ML SYR SQ SCH (20:50)
[2019-10-14] MEDS: cloNIDine HCL 0.1 MG TAB PO SCH (20:51)
[2019-10-14] MEDS: FENOFIBRATE 160 MG TAB PO SCH (20:51)
[2019-10-14] MEDS: MELATONIN 5 MG TABLET PO SCH (20:51)
[2019-10-14] MEDS: MAGNESIUM OXIDE 400 MG TAB PO SCH (20:51)
[2019-10-14] MEDS: TRIMETHOPRIM 100 MG TAB PO SCH (20:52)
[2019-10-14] MEDS: RIVAROXABAN 20 MG TAB PO SCH (21:01)
[2019-10-15] MEDS: LEVOTHYROXINE 125 MCG TAB PO SCH (07:14)
[2019-10-15] MEDS: LEVOTHYROXINE 100 MCG TAB PO SCH (07:14)
[2019-10-15] MEDS: LINACLOTIDE 145 MCG PO SCH (07:15)
[2019-10-15 07:48] LABS: Glucose,Whole Blood 137 mg/dL (75-99)
[2019-10-15] MEDS: INSULIN ASPART (NovoLOG) 100 UNIT/ML VIAL SQ SCH ×4 (07:55→19:49)
[2019-10-15] MEDS: busPIRone HCl 10 MG TAB PO SCH ×2 (09:05→21:17)
[2019-10-15] MEDS: FLUTICASONE 50MCG/SPRAY NASAL 16GM EA NOSTRIL SCH (09:05)
[2019-10-15] MEDS: CYANOCOBALAMIN 500 MCG TAB PO SCH (09:05)
[2019-10-15] MEDS: PANTOPRAZOLE 40 MG TABLET PO SCH (09:05)
[2019-10-15] MEDS: GABAPENTIN 400 MG CAP PO SCH ×3 (09:05→21:34)
[2019-10-15] MEDS: METOCLOPRAMIDE 10 MG TAB PO SCH ×4 (09:05→21:20)
[2019-10-15] MEDS: LORATADINE 10 MG TAB PO SCH (09:05)
[2019-10-15] MEDS: MELOXICAM 7.5 MG TAB PO SCH (09:06)
[2019-10-15] MEDS: METOPROLOL SUCCINATE (ER) 50 MG TAB.ER.24H PO SCH (09:07)
[2019-10-15] MEDS: MODAFINIL 200 MG TAB PO SCH (09:07)
[2019-10-15] MEDS: HIPREX 1 GM PO SCH ×2 (09:07→21:20)
[2019-10-15] MEDS: MYRBETRIQ 25 MG PO SCH (09:07)
[2019-10-15] MEDS: SERTRALINE 100 MG TAB PO SCH (09:08)
[2019-10-15] MEDS: tiZANidine 4 MG TAB PO SCH ×3 (09:08→21:21)
[2019-10-15] MEDS: TOPIRAMATE 100 MG TAB PO SCH ×2 (09:08→21:21)
[2019-10-15] MEDS: ONDANSETRON 4 MG TAB PO PRN (09:08)
[2019-10-15 12:41] LABS: Glucose,Whole Blood 162 mg/dL (75-99)
--- NOTE | 2019-10-15 12:53 | P.PN ---
Progress Note - Text Progress Note Date: 10/15/19 Interval History: Patient was seen taking part in group and was completing a puzzle and was agre eable to speak to chart writer in the office. Patient states that she had a "bad weekend" and states feeling very overwhelmed with her home situation. Patient described feeling suicidal over the weekend and gave vague answers if she had a plan by stating "I needed to try and find a way out" referring to suicide. At the current time patient continues to state that she is having suicidal thoughts with no specific plan. Patient remains on a one-to-one for safety. She states that she feels that her mother who has dementia is not taking care of herself and came to the emergency room over the weekend and required antibiotics for an infection and is not taking care of herself at home without the patient. She states that her family is not helpful in taking care of her mother and she feels overwhelmed with the burden of this. Patient did state that she is having some improvement with sleep on the trazodone however it was requesting to have it increased to 200 mg at night. She also states that the Latuda is helping with the voices and her mood however was again asking for an increase in medication. She reports some mild improvement in her anxiety. Patient was tearful at times during the interview. She admits to having fair appetite and energy. Patient denies any homicidal ideations intent or plan at this time. Patient denies any visual hallucinations and denies any paranoia or delusions. Patient denies any side effects from the medications and has been compliant with meds. Mental Status Exam: General Appearance: Patient appears to be overweight, in a wheelchair, stated age is alert, directable and attempts to cooperate. Marginal hygiene and grooming. Behavior: Patient is calmly seated without any agitated behavior. Cooperative yet somewhat tearful at times. Speech: Patient's speech is fluent and nonpressured. [place]. Mood/Affect: Patient reports their mood is depressed/anxious, affect is congruent and tearful at times. Suicidality/Homicidality: Admits to suicidal ideations, decreasing in frequency and intensity. Perceptions: Admits to auditory hallucinations, denies any visual hallucinations. Though content/process: There is no evidence of any delusional thought content and thought process is linear and goal-directed. [place] thought process. Memory and concentration: AOX3, grossly intact for the purposes of this session. Judgment and insight: improving mildly. Assessment Bipolar disorder, currently depressed History of PTSD Autism spectrum disorder Plan: -Patient continues to meet criteria for inpatient psychiatric admission for symptom stabilization and safety. Patient has signed adult voluntary form and medication consent and was placed in patient's chart. -Medications: Will increase Latuda 100mg with dinner for psychosis/bipolar depression. Continue with Zoloft 200 mg daily for mood/anxiety. Continue with BuSpar to 30 mg twice a day for anxiety. Will increase trazodone 200 mg daily at bedtime for insomnia/mood. Melatonin 5 mg daily at bedtime for sleep. Clonidine 0.1 mg daily at bedtime for anxiety. -When necessary Ativan for agitation/aggression. -Continue on one-to-one sitter for safety. -NRT - not needed as patient does not smoke. -SW on board for discharge planning. Likely discharge in 1-2 days. Patient will be following up with her counselor and psychiatrist at [facility]. Advised patient to sit with social media campaign manager to see about contacting her mother is guardian to discuss future options to assist patient with caregiver burnout.
[2019-10-15] MEDS: traMADol 50 MG TAB PO PRN (16:28)
[2019-10-15 17:44] LABS: Glucose,Whole Blood 185 mg/dL (75-99)
[2019-10-15] MEDS: LURASIDONE 40 MG TAB PO SCH (18:12)
[2019-10-15 19:37] LABS: Glucose,Whole Blood 285 mg/dL (75-99)
[2019-10-15] MEDS: INSULIN DETEMIR (LEVEMIR) 100 UNIT/ML SYR SQ SCH (19:50)
[2019-10-15] MEDS: cloNIDine HCL 0.1 MG TAB PO SCH (21:18)
[2019-10-15] MEDS: FENOFIBRATE 160 MG TAB PO SCH (21:18)
[2019-10-15] MEDS: MAGNESIUM OXIDE 400 MG TAB PO SCH (21:18)
[2019-10-15] MEDS: MELATONIN 5 MG TABLET PO SCH (21:20)
[2019-10-15] MEDS: TRIMETHOPRIM 100 MG TAB PO SCH (21:21)
[2019-10-15] MEDS: traZODone HCL 100 MG TAB PO SCH (21:21)
[2019-10-15] MEDS: RIVAROXABAN 20 MG TAB PO SCH (21:21)
[2019-10-16] MEDS: LEVOTHYROXINE 100 MCG TAB PO SCH (06:40)
[2019-10-16] MEDS: LINACLOTIDE 145 MCG PO SCH (06:40)
[2019-10-16] MEDS: LEVOTHYROXINE 125 MCG TAB PO SCH (06:40)
[2019-10-16 07:42] LABS: Glucose,Whole Blood 151 mg/dL (75-99)
[2019-10-16] MEDS: INSULIN ASPART (NovoLOG) 100 UNIT/ML VIAL SQ SCH ×4 (07:52→20:52)
[2019-10-16] MEDS: METOCLOPRAMIDE 10 MG TAB PO SCH ×4 (08:03→20:54)
[2019-10-16] MEDS: PANTOPRAZOLE 40 MG TABLET PO SCH (08:03)
[2019-10-16] MEDS: FLUTICASONE 50MCG/SPRAY NASAL 16GM EA NOSTRIL SCH (08:54)
[2019-10-16] MEDS: HIPREX 1 GM PO SCH ×2 (08:54→21:02)
[2019-10-16] MEDS: MYRBETRIQ 25 MG PO SCH (08:55)
[2019-10-16] MEDS: MELOXICAM 7.5 MG TAB PO SCH (08:56)
[2019-10-16] MEDS: MODAFINIL 200 MG TAB PO SCH (08:56)
[2019-10-16] MEDS: busPIRone HCl 10 MG TAB PO SCH ×2 (08:56→20:53)
[2019-10-16] MEDS: LORATADINE 10 MG TAB PO SCH (08:56)
[2019-10-16] MEDS: GABAPENTIN 400 MG CAP PO SCH ×3 (08:57→20:53)
[2019-10-16] MEDS: METOPROLOL SUCCINATE (ER) 50 MG TAB.ER.24H PO SCH (08:57)
[2019-10-16] MEDS: CYANOCOBALAMIN 500 MCG TAB PO SCH (08:57)
[2019-10-16] MEDS: TOPIRAMATE 100 MG TAB PO SCH ×2 (08:57→20:55)
[2019-10-16] MEDS: tiZANidine 4 MG TAB PO SCH ×3 (08:58→20:54)
[2019-10-16] MEDS: SERTRALINE 100 MG TAB PO SCH (08:58)
--- NOTE | 2019-10-16 11:59 | P.PN ---
Progress Note - Text Progress Note Date: 10/16/19 Interval History: Patient was seen taking part in group and was speaking with the recreational t herapist and her one-to-one sitter and was agreeable to speak to narrative writer in the office. Patient states that she "feels much better" today as she feels more optimistic about the future. She states that yesterday she spoke with the medical records secretary for her mother's guardian's office and had a lengthy conversation with her stating her complaints and her concerns about her mother's care. She claims that she feels a lot more hopeful that they will start the movement towards getting her mother's placement ready sometime before the new year. She claims that the guardian will meet with the team and decide on what kind of placement will be best. Patient states that she does not feel suicidal today and contracts to safety with narrative writer. She states that she believes the medicine is helping her stay calmer and not depressed. Patient asked about discharge potentially tomorrow for the holidays. Patient claimed that she slept much better last night with her trazodone increased to 200 mg. Patient also states that the Latuda is helping her with the voices and claims that "they're all gone now". She admits to having fair appetite and energy. Patient denies any homicidal ideations intent or plan at this time. Patient denies any visual hallucinations and denies any paranoia or delusions. Patient denies any side effects from the medications and has been compliant with meds. Mental Status Exam: General Appearance: Patient appears to be overweight, in a wheelchair, stated age is alert, directable and cooperative. Improved hygiene and grooming. Behavior: Patient is calmly seated without any agitated behavior. Cooperative Speech: Patient's speech is fluent and nonpressured. [place]. Mood/Affect: Patient reports their mood is improving significantly, affect is congruent and appropriate. Suicidality/Homicidality: Denies any suicidal or homicidal ideations intent or plan Perceptions: Denies any auditory hallucinations, denies any visual hallucinations. Though content/process: There is no evidence of any delusional thought content and thought process is linear and goal-directed. [place] thought process. Memory and concentration: AOX3, grossly intact for the purposes of this session. Judgment and insight: improving Assessment Bipolar disorder, currently depressed History of PTSD Autism spectrum disorder Plan: -Patient continues to meet criteria for inpatient psychiatric admission for symptom stabilization and safety. Patient has signed adult voluntary form and medication consent and was placed in patient's chart. -Medications: Will continue with Latuda 100mg with dinner for psychosis/bipolar depression. Continue with Zoloft 200 mg daily for mood/anxiety. Continue with BuSpar to 30 mg twice a day for anxiety. Will continue with trazodone 200 mg daily at bedtime for insomnia/mood. Melatonin 5 mg daily at bedtime for sleep. Clonidine 0.1 mg daily at bedtime for anxiety. -When necessary Ativan for agitation/aggression. -At this time patient contracts to safety and denies any suicidal ideations intent or plan and denies any command hallucinations and at this time will discontinue one-to-one sitter. We'll continue to monitor -NRT - not needed as patient does not smoke. -SW on board for discharge planning. Likely discharge tomorrow back home. Patient will be following up with her counselor and psychiatrist at [facility]. Patient was also guided to social secretary office to follow-up with yesterday's phone call to her mother's guardian's office.
[2019-10-16 12:54] LABS: Glucose,Whole Blood 197 mg/dL (75-99)
[2019-10-16 15:20] VITALS: BMI 40.7
[2019-10-16] MEDS: traMADol 50 MG TAB PO PRN (15:36)
[2019-10-16] MEDS: ONDANSETRON 4 MG TAB PO PRN (15:39)
[2019-10-16 17:40] LABS: Glucose,Whole Blood 209 mg/dL (75-99)
[2019-10-16] MEDS: LURASIDONE 40 MG TAB PO SCH (17:41)
[2019-10-16 19:53] LABS: Glucose,Whole Blood 181 mg/dL (75-99)
[2019-10-16] MEDS: cloNIDine HCL 0.1 MG TAB PO SCH (20:54)
[2019-10-16] MEDS: TRIMETHOPRIM 100 MG TAB PO SCH (20:54)
[2019-10-16] MEDS: MELATONIN 5 MG TABLET PO SCH (20:54)
[2019-10-16] MEDS: MAGNESIUM OXIDE 400 MG TAB PO SCH (20:55)
[2019-10-16] MEDS: RIVAROXABAN 20 MG TAB PO SCH (20:55)
[2019-10-16] MEDS: traZODone HCL 100 MG TAB PO SCH (20:55)
[2019-10-16] MEDS: INSULIN DETEMIR (LEVEMIR) 100 UNIT/ML SYR SQ SCH (20:55)
[2019-10-16] MEDS: FENOFIBRATE 160 MG TAB PO SCH (20:55)
[2019-10-17 06:44] VITALS: TEMP 98
[2019-10-17] MEDS: LEVOTHYROXINE 100 MCG TAB PO SCH (06:55)
[2019-10-17] MEDS: LEVOTHYROXINE 125 MCG TAB PO SCH (06:55)
[2019-10-17] MEDS: INSULIN ASPART (NovoLOG) 100 UNIT/ML VIAL SQ SCH (07:51)
[2019-10-17] MEDS: METOCLOPRAMIDE 10 MG TAB PO SCH (07:53)
[2019-10-17] MEDS: PANTOPRAZOLE 40 MG TABLET PO SCH (07:53)
[2019-10-17 07:55] LABS: Glucose,Whole Blood 129 mg/dL (75-99)
[2019-10-17] MEDS: busPIRone HCl 10 MG TAB PO SCH (08:51)
[2019-10-17] MEDS: FLUTICASONE 50MCG/SPRAY NASAL 16GM EA NOSTRIL SCH (08:51)
[2019-10-17] MEDS: CYANOCOBALAMIN 500 MCG TAB PO SCH (08:51)
[2019-10-17] MEDS: LINACLOTIDE 145 MCG PO SCH (08:51)
[2019-10-17] MEDS: GABAPENTIN 400 MG CAP PO SCH (08:51)
[2019-10-17] MEDS: HIPREX 1 GM PO SCH (08:52)
[2019-10-17] MEDS: LORATADINE 10 MG TAB PO SCH (08:52)
[2019-10-17] MEDS: MYRBETRIQ 25 MG PO SCH (08:53)
[2019-10-17] MEDS: METOPROLOL SUCCINATE (ER) 50 MG TAB.ER.24H PO SCH (08:53)
[2019-10-17] MEDS: TOPIRAMATE 100 MG TAB PO SCH (08:54)
[2019-10-17] MEDS: SERTRALINE 100 MG TAB PO SCH (08:54)
[2019-10-17] MEDS: MODAFINIL 200 MG TAB PO SCH (08:54)
[2019-10-17] MEDS: tiZANidine 4 MG TAB PO SCH (08:54)
[2019-10-17] MEDS: MELOXICAM 7.5 MG TAB PO SCH (08:55)
[2019-10-17 08:59] VITALS: BP 114/74; PULSE 101; RESP 20
--- NOTE | 2019-10-17 09:52 | P.DS ---
Providers Date of admission: 10/08/19 16:48 Expected date of discharge: 10/17/19 Attending physician: Anson Ibarra MD Consults: 10/08/19 17:10 Consult Physician Routine Consulting Provider: Adriana Douglas Consult Reason/Comments: H&P and medical and diabetes and BP and lupus and mitochondrial disease Do you want consulting provider notified?: Yes Primary care physician: Julissa Montano - Discharge Diagnosis(es) (1) Bipolar 1 disorder, depressed Current Visit: Yes Status: Acute Priority: High (2) History of posttraumatic stress disorder (PTSD) Current Visit: Yes Status: Acute Priority: Medium (3) Autism spectrum disorder Current Visit: Yes Status: Acute Priority: Low Hospital Course: Admission HPI: Patient is a 39-year-old female with chronic medical history long with bipolar disorder who is currently disabled, single with no children and lives with her mother and apartment. Patient presented to the hospital yesterday with complaints of progressive depression along with suicidal ideations and plan. Patient stated that she has a chronic history of bipolar disorder and several medical conditions including mitochondrial disease and states that she was undergoing a MediPort replacement surgery and claims that she had a "medical trauma" during this procedure. She states that the anesthesia had failed at that time and claims that the doctor continued to do the procedure and states that she was in a state of shock and could not withdrawal her consent at that time. Patient claims that since then. Triggered her "PTSD from my childhood" and states that she has been on edge and has had high anxiety and ongoing and progressive depression. He states that she is easily startled and has self- hatred. Patient claims that she is also experiencing auditory hallucinations of voices telling her to kill herself or roll her wheelchair into traffic. She states that yesterday she was planning on overdosing and claims that her mother noticed her being "off" and she informed her mother of her plan and then she got brought into the emergency department for evaluation. Patient admits to a decline in her sleep approximately 4-5 hours per night, decrease in appetite and concentration. Patient admits to previous history of manic episodes including excessive spending and hypersexuality in the past. Patient currently admits to suicidal ideations however denies any intent or plan while on the unit. She den ies any homicidal ideation intent or plan. At this time patient admits to auditory hallucinations which increase at times of stress. Patient denies any flight of ideas racing thoughts and increased in goal directed behavior. Patient denies using any recreational drugs at this time and denies any alcohol or cigarettes. Hospital course: Upon admission to the unit patient was initially depressed, anxious having suicidal ideations along with auditory hallucinations. Patient was however directable and agreeable to commence treatment. Patient got along well with other patients on the unit and followed unit protocol. Patient was compliant with the medications and denied any side effects throughout hospital course. Patient was re-started on her dose of Zoloft 200 mg daily for mood/anxiety. Patient was discontinued off of Cymbalta. Patient was started on Latuda and titrated up to 100 mg daily with dinner for bipolar depression. Patient was started on trazodone and titrated up to 200 mg nightly for insomnia/mood. Patient was also started on BuSpar and titrated up to a dose of 30 mg twice a day for anxiety. Patient was titrated down on her clonidine to 0.1 mg nightly at bedtime for anxiety. Patient spoke of her stressors and engaged in therapy both group and individual. Patient was also seen by medical team for history and physical exam. Throughout the course of the hospitalization patient gradually improved with regards to mood, anxiety, suicidal thoughts, sleep and became future oriented with improved insight and judgment. On the day of discharge patient denied any suicidal or homicidal ideations intent or plan denied any auditory or visual hallucinations. Patient endorsed wanting to live for her future and to take care of her mother. The patient denied any access to guns or weapons. Patient denied any paranoia and did not endorse any delusions. Patient does not have a significant history of substance abuse however was counseled on abstaining from all substances including alcohol and marijuana. Patient was also counseled on the medications and need for regular compliance and was encouraged to follow-up with their outpatient appointment for mental health and also for primary care. Prior to discharge a family meeting will be arranged by social work administrator to answer any questions and ensure safety upon discharge. Mental status exam: General Appearance: Patient appears to be overweight, stated age is alert, pleasant, and cooperative. Patient is in no acute distress and has fair hygiene and grooming. Patient is in a wheelchair. Behavior: Patient is calmly seated without any agitated behavior. Speech: Patient's speech is fluent and nonpressured. Mood/Affect: Patient reports their mood is "much better", affect is congruent and euthymic. Suicidality/Homicidality: Patient denies having any suicidal or homicidal ideation intent or plan. Perceptions: Patient denies any auditory or visual hallucinations. Though content/process: There is no evidence of any delusional thought content and thought process is linear and goal-directed. [place]. Memory and concentration: AOX3, grossly intact for the purposes of this session. Can spell "WORLD" backwards correctly. Judgment and insight: fair, improved Impression: Bipolar disorder type I, currently depressed History of PTSD Autism spectrum disorder Plan: -Continue with discharge today as patient has improved and stabilized psychiatrically and is not currently an imminent threat to herself and/or others. -Continue medications: Patient to continue with Zoloft 200 mg daily for mood/anxiety, Latuda 100 mg with dinner for psychosis/bipolar depression, BuSpar 30 mg twice a day for anxiety, trazodone 200 mg nightly for insomnia/mood, melatonin 5 mg daily at bedtime for sleep, clonidine 0.1 mg nightly for anxiety. -Patient was counseled on the need for medication compliance and appropriate follow-up at mental health and also primary care for medical issues. Patient verbalized understanding and agreed. -Social work to arrange for and conduct family meeting to ensure safety upon discharge and answer any questions/concerns. Social work also to arrange for patients follow up appointments with [facility] for psychiatric care along with follow up with primary care provider. Patient was also encouraged to continue following up with her therapist on a weekly basis at [facility]. Patient was encourag ed to continue to stay in contact with her mother's guardian to help her address her primary stressor of her mother's well-being and need for more care. -Patient counseled on abstaining from recreational drugs and marijuana and alcohol. Was informed/educated on the adverse effects on their physical and mental health. Patient verbally agreed and understood -Patient was instructed to return to the hospital or seek immediate medical care if their psychiatric or medical symptoms do worsen or reoccur. Allergies Allergy/AdvReac Type Severity Reaction Status Date / Time barium sulfate Allergy Anaphylaxis Verified 10/09/19 12:57 doxepin [Doxepin] Allergy Anaphylaxis Verified 10/09/19 12:57 ephedrine Allergy Unknown Verified 10/09/19 12:57 ertapenem [From Invanz] Allergy Rash/Hives Verified 10/09/19 12:57 influenza virus vaccine, Allergy severe Verified 10/09/19 12:57 specific swelling [Influenza Virus and hives Vacc,Specific] peanut oil AdvReac Severe Nausea & Verified 10/09/19 12:57 Vomiting,itching doxycycline AdvReac Nausea & Verified 10/09/19 12:57 Vomiting & Diarrhea peanut AdvReac Nausea & Verified 10/09/19 12:57 Vomiting Pertussis Vaccines AdvReac fever/seizu Verified 10/09/19 12:57 re pseudoephedrine AdvReac Chest Pain Verified 10/09/19 12:57 pseudoephedrine HCl AdvReac Chest Pain Verified 10/09/19 12:57 [From Sudafed] sulfamethoxazole AdvReac Nausea & Verified 10/09/19 12:57 [From Bactrim] Vomiting trimethoprim [From Bactrim] AdvReac Nausea & Verified 10/09/19 12:57 Vomiting Vital Signs Temp 98.0 F 10/17/19 06:44 Pulse 101 H 10/17/19 08:58 Resp 20 10/17/19 08:58 BP 114/74 10/17/19 08:58 Pulse Ox 97 10/16/19 08:53 Intake & Output 10/16/19 10/17/19 10/17/19 18:59 06:59 18:59 Weight 111.13 kg Laboratory Results WBC 10.6 k/uL (3.8-10.6) 10/11/19 11:59 RBC 4.00 m/uL (3.80-5.40) 10/11/19 11:59 Hgb 11.4 gm/dL (11.4-16.0) 10/11/19 11:59 Hct 35.6 % (34.0-46.0) 10/11/19 11:59 MCV 88.9 fL (80.0-100.0) 10/11/19 11:59 MCH 28.6 pg (25.0-35.0) 10/11/19 11:59 MCHC 32.2 g/dL (31.0-37.0) 10/11/19 11:59 RDW 13.9 % (11.5-15.5) 10/11/19 11:59 Plt Count 413 k/uL (150-450) 10/11/19 11:59 Neutrophils % 77 % 10/11/19 11:59 Lymphocytes % 15 % 10/11/19 11:59 Monocytes % 4 % 10/11/19 11:59 Eosinophils % 2 % 10/11/19 11:59 Basophils % 1 % 10/11/19 11:59 Neutrophils # 8.2 k/uL (1.3-7.7) H 10/11/19 11:59 Lymphocytes # 1.6 k/uL (1.0-4.8) 10/11/19 11:59 Monocytes # 0.4 k/uL (0-1.0) 10/11/19 11:59 Eosinophils # 0.2 k/uL (0-0.7) 10/11/19 11:59 Basophils # 0.1 k/uL (0-0.2) 10/11/19 11:59 Sodium 142 mmol/L (137-145) 10/09/19 08:01 Potassium 4.1 mmol/L (3.5-5.1) 10/09/19 08:01 Chloride 106 mmol/L (98-107) 10/09/19 08:01 Carbon Dioxide 22 mmol/L (22-30) 10/09/19 08:01 Anion Gap 14 mmol/L 10/09/19 08:01 BUN 17 mg/dL (7-17) 10/09/19 08:01 Creatinine 0.84 mg/dL (0.52-1.04) 10/09/19 08:01 Est GFR (CKD-EPI)AfAm >90 (>60 ml/min/1.73 sqM) 10/09/19 08:01 Est GFR (CKD-EPI)NonAf 88 (>60 ml/min/1.73 sqM) 10/09/19 08:01 Glucose 132 mg/dL (74-99) H 10/09/19 08:01 POC Glucose (mg/dL) 129 mg/dL (75-99) H 10/17/19 07:45 POC Glu Medical [employer] ISAMAR Bisi Sanchez 10/17/19 07:[address] Glu mg/dL 192 10/09/19 08:01 Hemoglobin A1c 8.3 % (4.0-6.0) H 10/09/19 08:01 Calcium 10.1 mg/dL (8.4-10.2) 10/09/19 08:01 Total Bilirubin 0.5 mg/dL (0.2-1.3) 10/09/19 08:01 AST 28 U/L (14-36) 10/09/19 08:01 ALT 31 U/L (9-52) 10/09/19 08:01 Alkaline Phosphatase 80 U/L (38-126) 10/09/19 08:01 Total Protein 8.1 g/dL (6.3-8.2) 10/09/19 08:01 Albumin 4.8 g/dL (3.5-5.0) 10/09/19 08:01 Triglycerides 324 mg/dL (<150) H 10/09/19 08:01 Cholesterol 258 mg/dL (<200) H 10/09/19 08:01 LDL Cholesterol, Calc 159 mg/dL (0-99) H 10/09/19 08:01 HDL Cholesterol 34 mg/dL (40-60) L 10/09/19 08:01 TSH 0.276 mIU/L (0.465-4.680) L 10/09/19 08:01 Urine Color Yellow 10/11/19 14:56 Urine Appearance Clear (Clear) 10/11/19 14:56 Urine pH 5.5 (5.0-8.0) 10/11/19 14:56 Ur Specific [place] 1.022 (1.001-1.035) 10/11/19 14:56 Urine Protein Negative (Negative) 10/11/19 14:56 Urine Glucose (UA) Negative (Negative) 10/11/19 14:56 Urine Ketones Negative (Negative) 10/11/19 14:56 Urine Blood Negative (Negative) 10/11/19 14:56 Urine Nitrite Negative (Negative) 10/11/19 14:56 Urine Bilirubin Negative (Negative) 10/11/19 14:56 Urine Urobilinogen <2.0 mg/dL (<2.0) 10/11/19 14:56 Ur Leukocyte Esterase Trace (Negative) H 10/11/19 14:56 Urine RBC 1 /hpf (0-5) 10/11/19 14:56 Urine WBC 1 /hpf (0-5) 10/11/19 14:56 Ur Squamous Epith Cells 1 /hpf (0-4) 10/11/19 14:56 Urine Bacteria Few /hpf (None) H 10/08/19 13:25 Urine Mucus Rare /hpf (None) H 10/11/19 14:56 Urine HCG, Qual Not Detected (Not Detectd) 10/08/19 13:25 Urine Opiates Screen Not Detected (NotDetected) 10/08/19 13:25 Ur Oxycodone Screen Not Detected (NotDetected) 10/08/19 13:25 Urine Methadone Screen Not Detected (NotDetected) 10/08/19 13:25 Ur Propoxyphene Screen Not Detected (NotDetected) 10/08/19 13:25 Ur Barbiturates Screen Not Detected (NotDetected) 10/08/19 13:25 U Tricyclic Antidepress Not Detected (NotDetected) 10/08/19 13:25 Ur Phencyclidine Scrn Not Detected (NotDetected) 10/08/19 13:25 Ur Amphetamines Screen Not Detected (NotDetected) 10/08/19 13:25 U Methamphetamines Scrn Not Detected (NotDetected) 10/08/19 13:25 U Benzodiazepines Scrn Not Detected (NotDetected) 10/08/19 13:25 Urine Cocaine Screen Not Detected (NotDetected) 10/08/19 13:25 U Marijuana (THC) Screen Not Detected (NotDetected) 10/08/19 13:25 Patient Condition at Discharge: Stable Plan - Discharge Summary New Discharge Prescriptions: New busPIRone HCL [Buspar] 30 mg PO BID 28 Days tab cloNIDine HCL [Catapres] 0.1 mg PO HS tab Loratadine [Claritin] 10 mg PO DAILY tab traZODone HCL [Desyrel] 200 mg PO HS #28 tab Lurasidone [Latuda] 100 mg PO 1800 28 Days tab Fenofibrate [Lofibra] 160 mg PO HS tab Magnesium Oxide [Mag-Ox] 200 mg PO HS tab Melatonin 5 mg PO HS tablet Gabapentin [Neurontin] 400 mg PO TID cap Promethazine [Phenergan] 25 mg PO Q4H PRN tab PRN Reason: Nausea Metoclopramide [Reglan] 10 mg PO ACHS tab Topiramate [Topamax] 200 mg PO BID tab Metoprolol Succinate (ER) [Toprol XL] 50 mg PO DAILY tab.er.24h Trimethoprim [Trimpex] 100 mg PO HS tab Rivaroxaban [Xarelto] 20 mg PO HS tab tiZANidine [Zanaflex] 8 mg PO HS tab Ondansetron [Zofran] 8 mg PO Q6H PRN tab PRN Reason: Nausea Sertraline [Zoloft] 200 mg PO DAILY tab Continue tiZANidine [Zanaflex] 4 mg PO BID@0900,1500 Levothyroxine Sodium [Synthroid] 100 mcg PO DAILY Levothyroxine Sodium [Synthroid] 125 mcg PO DAILY Cyanocobalamin (Vitamin B-12) [Vitamin B-12] 2,000 mcg PO DAILY Meloxicam [Mobic] 15 mg PO DAILY Modafinil [Provigil] 200 mg PO DAILY tab traMADol HCL [Ultram] 50 mg PO BID PRN PRN Reason: Mild To Moderate Pain Methenamine Hippurate 1 gm PO BID Fluticasone Nasal Katy [Flonase Nasal Katy] 1 spray EA NOSTRIL DAILY Mirabegron [Myrbetriq] 25 mg PO DAILY Insulin Glargine,Hum.rec.anlog [Lantus Solostar] 50 unit SQ HS Insulin Aspart [NovoLOG Flexpen] See Protocol SQ ACHS Ergocalciferol [Vitamin D2 (DRISDOL)] 50,000 unit PO TAYLOR Dexlansoprazole [Dexilant] 60 mg PO DAILY Linaclotide [Linzess] 145 mcg PO DAILY Discontinued tiZANidine [Zanaflex] 8 mg PO HS Rivaroxaban [Xarelto] 20 mg PO HS Metoclopramide [Reglan] 10 mg PO ACHS Fenofibrate 160 mg PO HS diphenhydrAMINE [Benadryl] 150 mg PO HS PRN PRN Reason: Insomnia/ALLERGIES cloNIDine HCL [Catapres] 0.1 mg PO BID 30 Days #60 tab Gabapentin [Neurontin] 400 mg PO TID cap Prochlorperazine Suppository [Compazine] 25 mg RECTAL Q8H PRN PRN Reason: Nausea Promethazine [Phenergan] 25 mg PO Q4-6H PRN PRN Reason: Nausea Ondansetron HCl [Zofran] 8 mg PO Q6H PRN PRN Reason: Nausea risperiDONE [RisperDAL] 0.5 mg PO HS Sertraline [Zoloft] 200 mg PO DAILY cloNIDine HCL [Catapres] 0.1 mg PO DAILY PRN PRN Reason: Anxiety DULoxetine HCL [Cymbalta] 60 mg PO BID Cetirizine HCl [Zyrtec] 10 mg PO DAILY Trimethoprim [Trimpex] 100 mg PO HS Metoprolol Succinate [Toprol Xl] 50 mg PO DAILY@1500 PRN PRN Reason: if heart rate >110 busPIRone HCl [Buspar] 10 mg PO BID Rizatriptan Benzoate [Rizatriptan] 5 mg PO BID PRN PRN Reason: Migraine Headache Melatonin 5 mg PO HS Metoprolol Succinate [Toprol XL] 50 mg PO DAILY Topiramate [Topamax] 200 mg PO BID Magnesium Oxide [Mag-Ox] 250 mg PO HS Discharge Medication List tiZANidine [Zanaflex] 4 mg PO BID@0900,1500 12/04/18 [History] Levothyroxine Sodium [Synthroid] 100 mcg PO DAILY 01/16/19 [History] Cyanocobalamin (Vitamin B-12) [Vitamin B-12] 2,000 mcg PO DAILY 01/22/19 [History] Levothyroxine Sodium [Synthroid] 125 mcg PO DAILY 01/22/19 [History] Meloxicam [Mobic] 15 mg PO DAILY 03/01/19 [History] Modafinil [Provigil] 200 mg PO DAILY tab 03/07/19 [Rx] traMADol HCL [Ultram] 50 mg PO BID PRN 06/28/19 [History] Methenamine Hippurate 1 gm PO BID 07/12/19 [History] Dexlansoprazole [Dexilant] 60 mg PO DAILY 10/08/19 [History] Ergocalciferol [Vitamin D2 (DRISDOL)] 50,000 unit PO TAYLOR 10/08/19 [History] Fluticasone Nasal Katy [Flonase Nasal Katy] 1 spray EA NOSTRIL DAILY 10/08/19 [History] Insulin Aspart [NovoLOG Flexpen] See Protocol SQ ACHS 10/08/19 [History] Insulin Glargine,Hum.rec.anlog [Lantus Solostar] 50 unit SQ HS 10/08/19 [History] Mirabegron [Myrbetriq] 25 mg PO DAILY 10/08/19 [History] Linaclotide [Linzess] 145 mcg PO DAILY 10/09/19 [History] Fenofibrate [Lofibra] 160 mg PO HS tab 10/17/19 [Rx] Gabapentin [Neurontin] 400 mg PO TID cap 10/17/19 [Rx] Loratadine [Claritin] 10 mg PO DAILY tab 10/17/19 [Rx] Lurasidone [Latuda] 100 mg PO 1800 28 Days tab 10/17/19 [Rx] Magnesium Oxide [Mag-Ox] 200 mg PO HS tab 10/17/19 [Rx] Melatonin 5 mg PO HS tablet 10/17/19 [Rx] Metoclopramide [Reglan] 10 mg PO ACHS tab 10/17/19 [Rx] Metoprolol Succinate (ER) [Toprol XL] 50 mg PO DAILY tab.er.24h 10/17/19 [Rx] Ondansetron [Zofran] 8 mg PO Q6H PRN tab 10/17/19 [Rx] Promethazine [Phenergan] 25 mg PO Q4H PRN tab 10/17/19 [Rx] Rivaroxaban [Xarelto] 20 mg PO HS tab 10/17/19 [Rx] Sertraline [Zoloft] 200 mg PO DAILY tab 10/17/19 [Rx] Topiramate [Topamax] 200 mg PO BID tab 10/17/19 [Rx] Trimethoprim [Trimpex] 100 mg PO HS tab 10/17/19 [Rx] busPIRone HCL [Buspar] 30 mg PO BID 28 Days tab 10/17/19 [Rx] cloNIDine HCL [Catapres] 0.1 mg PO HS tab 10/17/19 [Rx] tiZANidine [Zanaflex] 8 mg PO HS tab 10/17/19 [Rx] traZODone HCL [Desyrel] 200 mg PO HS #28 tab 10/17/19 [Rx] Follow up Appointment(s)/Referral(s): [facility] [Outside] - 10/25/19 1:00 pm (10-25-19 @ 1:[address] Silveira 10-30-19 @ 3:15 with Bisi John) Julissa Montano III, MD [Primary Care Provider] - 1-2 days Patient Instructions/Handouts: Depression (DC), Help Prevent Suicide (DC) Activity/Diet/Wound Care/Special Instructions: Activity and diet as tolerated. Avoid the use of street drugs and alcohol. Take all medications as prescribed. When you are in need of refills on your medications please contact your medical provider and/or outpatient psychiatrist to have this done. Please go to scheduled outpatient appointment for aftercare treatment. If symptoms return or become worse, call the crisis line at and/or go to the nearest emergency room for evaluation. Discharge Disposition: HOME SELF-CARE
== END 2019-10-17 11:38 | disposition home or self-care (01) | DRG 885 ==
LOC: EC 12:37 → 3MHU 16:48
PROVIDERS: ADMIT Psychiatry & Neurology Psychiatry; ATTEND Psychiatry & Neurology Psychiatry
DX: F31.30 Bipolar disorder, current episode depressed, mild or moderate severity, unspecified (principal); D68.62 Lupus anticoagulant syndrome; G81.90 Hemiplegia, unspecified affecting unspecified side; D35.2 Benign neoplasm of pituitary gland; E11.41 Type 2 diabetes mellitus with diabetic mononeuropathy; E11.43 Type 2 diabetes mellitus with diabetic autonomic (poly)neuropathy; E28.2 Polycystic ovarian syndrome; E78.5 Hyperlipidemia, unspecified; F43.10 Post-traumatic stress disorder, unspecified; F79 Unspecified intellectual disabilities; F84.0 Autistic disorder; G43.909 Migraine, unspecified, not intractable, without status migrainosus; G47.00 Insomnia, unspecified; E06.3 Autoimmune thyroiditis; G90.1 Familial dysautonomia [Riley-Day]; I10 Essential (primary) hypertension; K21.9 Gastro-esophageal reflux disease without esophagitis; K31.84 Gastroparesis; Z87.440 Personal history of urinary (tract) infections; Z79.01 Long term (current) use of anticoagulants; Z79.1 Long term (current) use of non-steroidal anti-inflammatories (NSAID); Z79.4 Long term (current) use of insulin; Z79.890 Hormone replacement therapy; Z79.899 Other long term (current) drug therapy; Z81.8 Family history of other mental and behavioral disorders; Z82.49 Family history of ischemic heart disease and other diseases of the circulatory system; Z83.3 Family history of diabetes mellitus; Z86.73 Personal history of transient ischemic attack (TIA), and cerebral infarction without residual deficits; Z91.5 Personal history of self-harm; Z88.2 Allergy status to sulfonamides; Z88.7 Allergy status to serum and vaccine; Z88.8 Allergy status to other drugs, medicaments and biological substances; Z88.1 Allergy status to other antibiotic agents; Z91.010 Allergy to peanuts
CPT/HCPCS: 80053; 80061; 80306; 81001; 81025; 82075; 83036; 84443; 85025; 87086; 99285

== ENCOUNTER 2019-11-03 22:43 | Emergency (ER) | payer MEDICARE, OTHER ==
[2019-11-03 22:55] VITALS: RESP 18
[2019-11-03] MEDS ORDERED: SODIUM CHLORIDE 0.9% 1,000 ML IV STA (23:12)
[2019-11-03] MEDS ORDERED: diphenhydrAMINE 50 MG/ML 1 ML VIAL IVP STA (23:12)
[2019-11-03] MEDS ORDERED: METOCLOPRAMIDE 5 MG/ML 2 ML VIAL IVP STA (23:12)
[2019-11-03] MEDS ORDERED: KETOROLAC 30 MG/ML 1 ML VIAL IVP STA (23:12)
[2019-11-03] MEDS ORDERED: DEXAMETHASONE SOD PHOSPHATE 10 MG/ML 1 ML VIAL IV STA (23:13)
[2019-11-03] MEDS ORDERED: MAGNESIUM SULFATE-D5W PMX 1 GM in DEXTROSE/WATER 1 100ML.BAG IVPB ONE (23:14)
[2019-11-04 00:26] LABS: Basophils % (A) 0 %; Eosinophils # (A) 0.2 k/uL (0-0.7); Eosinophils % (A) 3 %; HCT 32.9 % (34.0-46.0); HGB 10.3 gm/dL (11.4-16.0); Lymphocytes # (A) 2.2 k/uL (1.0-4.8); Lymphocytes % (A) 24 %; MCH 27.7 pg (25.0-35.0); MCHC 31.4 g/dL (31.0-37.0); MCV 88.1 fL (80.0-100.0); Mean Platelet Volume 7.5; Monocytes # (A) 0.4 k/uL (0-1.0); Monocytes % (A) 5 %; Neutrophils # (A) 6.1 k/uL (1.3-7.7); Neutrophils % (A) 67 %; Platelet Count 368 k/uL (150-450); RBC 3.73 m/uL (3.80-5.40); RDW 14.1 % (11.5-15.5); WBC 9.1 k/uL (3.8-10.6)
[2019-11-04 00:27] LABS: Appearance,Urine Clear (Clear); Bilirubin,Urine Negative (Negative); Blood,Urine Negative (Negative); Color,Urine Light Yellow; Glucose,Urine (UA) Negative (Negative); Ketones,Urine Negative (Negative); Leukocyte Esterase,Urine Negative (Negative); Nitrite,Urine Negative (Negative); Protein,Urine Negative (Negative); Specific Gravity,Urine 1.009 (1.001-1.035); Urobilinogen,Urine <2.0 mg/dL (<2.0)
[2019-11-04 00:35] LABS: ALT 16 U/L (4-34); AST 17 U/L (14-36); African American GFR (CKD) >90 (>60 ml/min/1.73 sqM); Albumin 3.9 g/dL (3.5-5.0); Alkaline Phosphatase 71 U/L (38-126); Anion Gap 9 mmol/L; Blood Urea Nitrogen 15 mg/dL (7-17); Calcium 9.7 mg/dL (8.4-10.2); Carbon Dioxide 22 mmol/L (22-30); Chloride 108 mmol/L (98-107); Glucose 207 mg/dL (74-99); Non-African American GFR(CKD) >90 (>60 ml/min/1.73 sqM); Potassium 4.1 mmol/L (3.5-5.1); Sodium 139 mmol/L (137-145); Total Bilirubin 0.3 mg/dL (0.2-1.3); Total Protein 6.5 g/dL (6.3-8.2)
--- NOTE | 2019-11-04 00:58 | CT ---
EXAMINATION TYPE: CT brain wo con DATE OF EXAM: 11/04/2019 COMPARISON: 02/15/2019 HISTORY: headache CT DLP: 1080.40 mGycm Automated exposure control for dose reduction was used. Ventricles and sulci appear normal. There is no mass effect nor midline shift. There is no sign of in tracranial hemorrhage. The calvarium is intact. 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 No change.
[2019-11-04] MEDS ORDERED: KETOROLAC 30 MG/ML 1 ML VIAL IVP STA (01:08)
[2019-11-04] MEDS ORDERED: diphenhydrAMINE 50 MG/ML 1 ML VIAL IVP STA (01:08)
--- NOTE | 2019-11-04 01:17 | ED ---
Headache HPI - General Chief Complaint: Headache Stated Complaint: Headache Time Seen by Provider: 11/03/19 22:50 Mode of arrival: EMS Limitations: no limitations - History of Present Illness Initial Comments: The patient is a 39-year-old female with past medical history of CVA, mitochondrial disease and lupus anticoagulant who presents to the emergency department with reported headache since 6:00. Patient states that she has frequent migraines for which she is under the care of Dr. Vickers. They are normally unilateral headaches which get gradually worse. States that her headache today is different in nature. It is a global headache which was relatively sudden onset. She admits to photophobia. Denies any neck pain or stiffness. No visual changes. No sick contacts or recent travel. Denies any fevers or chills. Denies any blunt head trauma. No lateralizing symptoms. Has a history of previous CVA for which she did regain function in her extremities. 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 Denies any worsening weakness, numbness or tingling. This is not the worse headache of her life. She states that she did take Ultram, ibuprofen, Maxalt, Benadryl, Reglan, Compazine, Zofran and tizanidine tonight for her headache without improvement. She also reports that normally she has an aura before her migraines and states that she didn't have any aura with this. She is on Xarelto because of her blood clotting disorder. Denies missing any doses. Denies any chest pain or shortness of breath. No abdominal pain or changes in her bowel or bladder habits. There are no other alleviating, precipitating or modifying factors - Related Data Home Medications Medication Instructions Recorded Confirmed tiZANidine [Zanaflex] 4 mg PO BID@0900,1500 12/04/18 10/26/19 Levothyroxine Sodium [Synthroid] 100 mcg PO DAILY 01/16/19 10/26/19 Cyanocobalamin (Vitamin B-12) 2,000 mcg PO DAILY 01/22/19 10/26/19 [Vitamin B-12] Levothyroxine Sodium [Synthroid] 125 mcg PO DAILY 01/22/19 10/26/19 Meloxicam [Mobic] 15 mg PO DAILY 03/01/19 10/26/19 traMADol HCL [Ultram] 50 mg PO BID PRN 08/08/19 12/06/19 Methenamine Hippurate 1 gm PO BID 07/12/19 10/26/19 Dexlansoprazole [Dexilant] 60 mg PO DAILY 10/08/19 10/26/19 Ergocalciferol [Vitamin D2 50,000 unit PO TAYLOR 10/08/19 10/26/19 (DRISDOL)] Fluticasone Nasal Marion [Flonase 1 spray EA NOSTRIL DAILY 10/08/19 10/26/19 Nasal Marion] Insulin Aspart [NovoLOG Flexpen] See Protocol SQ ACHS 10/08/19 10/26/19 Insulin Glargine,Hum.rec.anlog 50 unit SQ HS 10/08/19 10/26/19 [Lantus Solostar] Mirabegron [Myrbetriq] 25 mg PO DAILY 10/08/19 10/26/19 Linaclotide [Linzess] 145 mcg PO DAILY 10/09/19 10/26/19 ARIPiprazole [Abilify] 15 mg PO DAILY 10/26/19 10/26/19 Previous Rx's Medication Instructions Recorded Modafinil [Provigil] 200 mg PO DAILY tab 03/07/19 Fenofibrate [Lofibra] 160 mg PO HS tab 10/17/19 Gabapentin [Neurontin] 400 mg PO TID cap 10/17/19 Loratadine [Claritin] 10 mg PO DAILY tab 10/17/19 Lurasidone [Latuda] 100 mg PO 1800 28 Days tab 10/17/19 Magnesium Oxide [Mag-Ox] 200 mg PO HS tab 10/17/19 Melatonin 5 mg PO HS tablet 10/17/19 Metoclopramide [Reglan] 10 mg PO ACHS tab 10/17/19 Metoprolol Succinate (ER) [Toprol 50 mg PO DAILY tab.er.24h 10/17/19 XL] Ondansetron [Zofran] 8 mg PO Q6H PRN tab 10/17/19 Promethazine [Phenergan] 25 mg PO Q4H PRN tab 10/17/19 Rivaroxaban [Xarelto] 20 mg PO HS tab 10/17/19 Sertraline [Zoloft] 200 mg PO DAILY tab 10/17/19 Topiramate [Topamax] 200 mg PO BID tab 10/17/19 Trimethoprim [Trimpex] 100 mg PO HS tab 10/17/19 busPIRone HCL [Buspar] 30 mg PO BID 28 Days tab 10/17/19 cloNIDine HCL [Catapres] 0.1 mg PO HS tab 10/17/19 tiZANidine [Zanaflex] 8 mg PO HS tab 10/17/19 traZODone HCL [Desyrel] 200 mg PO HS #28 tab 10/17/19 Allergies Allergy/AdvReac Type Severity Reaction Status Date / Time barium sulfate Allergy Anaphylaxis Verified 10/26/19 11:40 doxepin [Doxepin] Allergy Anaphylaxis Verified 10/26/19 11:40 ephedrine Allergy Unknown Verified 10/26/19 11:40 ertapenem [From Invanz] Allergy Rash/Hives Verified 10/26/19 11:40 influenza virus vaccine, Allergy severe Verified 10/26/19 11:40 specific swelling [Influenza Virus and hives Vacc,Specific] peanut oil AdvReac Severe Nausea & Verified 10/26/19 11:40 Vomiting,itching doxycycline AdvReac Nausea & Verified 10/26/19 11:40 Vomiting & Diarrhea peanut AdvReac Nausea & Verified 10/26/19 11:40 Vomiting Pertussis Vaccines AdvReac fever/seizu Verified 10/26/19 11:40 re pseudoephedrine AdvReac Chest Pain Verified 10/26/19 11:40 pseudoephedrine HCl AdvReac Chest Pain Verified 10/26/19 11:40 [From Sudafed] sulfamethoxazole AdvReac Nausea & Verified 10/26/19 11:40 [From Bactrim] Vomiting trimethoprim [From Bactrim] AdvReac Nausea & Verified 10/26/19 11:40 Vomiting Review of Systems ROS Statement: Those systems with pertinent positive or pertinent negative responses have been documented in the HPI. ROS Other: All systems not noted in ROS Statement are negative. Past Medical History Past Medical History: Chest Pain / Angina, CVA/TIA, Diabetes Mellitus, Deep Vein Thrombosis (DVT), Neurologic Disorder, Syncope, Thyroid Disorder Additional Past Medical History / Comment(s): STROKE LIKE EPISODE D/T MITOCHRONDIAL DISEASE HAD WORK UP DONE AT [facility]. Dysautonomia-progressive neurological disorder, lupus/LUPUS ANTICOAGULANTS, ana maria's disease, lymphedema Lt arm d/t DVTs , v-tach, pituitary microadenoma. patent foramen ovale, narcolepsy, gastropareis, IDDM type II, falls, orthostatic hypotension/syncope, migraines with hemiplegia, pernicious anemia, polycystic ovarian syndrome, neuropathy bilateral legs/feet - mild, uti's. History of Any Multi-Drug Resistant Organisms: ESBL, MRSA Date of last positivie culture/infection: 03/09/17 MRSA/ 05/17/18 ESBL MDRO Source:: MRSA LEFT ARM,/ESBL URINE ECOLI Past Surgical History: Uterine Ablation Additional Past Surgical History / Comment(s): colonscopy/egd, angie, PORT-A -CATH INSERTION 04-28-18 Past Anesthesia/Blood Transfusion Reactions: No Reported Reaction Additional Past Anesthesia/Blood Transfusion Reaction / Comment(s): patient states "It takes a lot of anesthesia for my body to react". Pt has received blood in past without reaction. Past Psychological History: Bipolar, Depression Smoking Status: Never smoker - Past Family History Brother(s) Family Medical History: Diabetes Mellitus, Hyperlipidemia, Hypertension Additional Family Medical History / Comment(s): Patient states she has 1 brother with no major medical problems. Father Family Medical History: Diabetes Mellitus, Hyperlipidemia, Hypertension Additional Family Medical History / Comment(s): DAD IS 70 YEARS OLD. Patient states she does not have any contact with her father and does not know his medical history. Mother Family Medical History: CVA/TIA, Deep Vein Thrombosis (DVT) Additional Family Medical History / Comment(s): antiphospholipid antibody syndrome General Exam Limitations: no limitations General appearance: alert, in no apparent distress Head exam: Present: atraumatic, normocephalic, normal inspection Eye exam: Present: normal appearance, PERRL, EOMI. Absent: scleral icterus, conjunctival injection, periorbital swelling ENT exam: Present: normal exam, mucous membranes moist Neck exam: Present: normal inspection. Absent: tenderness, meningismus, lymphadenopathy Respiratory exam: Present: normal lung sounds bilaterally. Absent: respiratory distress, wheezes, rales, rhonchi, stridor Cardiovascular Exam: Present: regular rate, normal rhythm, normal heart sounds. Absent: systolic murmur, diastolic murmur, rubs, gallop, clicks GI/Abdominal exam: Present: soft, normal bowel sounds. Absent: distended, tenderness, guarding, rebound, rigid Extremities exam: Present: normal inspection, full ROM, normal capillary refill. Absent: tenderness, pedal edema, joint swelling, calf tenderness Back exam: Present: normal inspection Neurological exam: Present: alert, oriented X3, CN II-XII intact Psychiatric exam: Present: normal affect, normal mood Skin exam: Present: warm, dry, intact, normal color. Absent: rash Course Vital Signs 11/03/19 11/03/19 11/04/19 22:50 23:02 00:16 Temperature 98.4 F Pulse Rate 78 75 71 Respiratory 18 18 18 Rate Blood Pressure 99/78 92/65 96/62 O2 Sat by Pulse 98 97 98 Oximetry 11/04/19 02:00 Temperature 98 F Pulse Rate 90 Respiratory 18 Rate Blood Pressure 100/60 O2 Sat by Pulse 98 Oximetry Medical Decision Making - Medical Decision Making Upon arrival the patient is placed in room 6. A thorough history and physical exam was performed. Her port is accessed. She is given 10 mg of Decadron, 10 mg of Reglan, 25 mg of Benadryl and 30 mg of Toradol for her headache. I also provided her with a gram of magnesium. I did recommend laboratory studies and a CT the patient's brain and she is reporting that this headache is different than her previous headaches. Laboratory studies are unremarkable. Glucose is 207. Urinalysis is negative. HCG is negative. CT of the patient's brain demonstrates no acute intracranial process. I did reevaluate the patient. Her headache is gone from 10 out of 10-6 out of 10. I do recommend additional medication administration in order to improve her headache further. The patient is requesting another dose of Toradol and Benadryl. I did provide her with this. She is reevaluated and has additional improvement in her headache. NIH stroke scale is negative. Repetitive seal exams demonstrates no lateralizing symptoms. I did offer hospital admission for intractable headache however the patient states that she feels improved enough to go home. She must follow up with her primary care physician in 2-[address] Vickers within one week. Return to the emergency room for any new or worsening symptoms. Patient was in agreement with the treatment plan and was discharged home in stable condition - Lab Data Result diagrams: 11/04/19 00:10 11/04/19 00:10 Lab Results 11/04/19 11/04/19 11/04/19 Range/Units 00:10 00:10 00:10 WBC 9.1 (3.8-10.6) k/uL RBC 3.73 L (3.80-5.40) m/uL Hgb 10.3 L (11.4-16.0) gm/dL Hct 32.9 L (34.0-46.0) % MCV 88.1 (80.0-100.0) fL MCH 27.7 (25.0-35.0) pg MCHC 31.4 (31.0-37.0) g/dL RDW 14.1 (11.5-15.5) % Plt Count 368 (150-450) k/uL Neutrophils % 67 % Lymphocytes % 24 % Monocytes % 5 % Eosinophils % 3 % Basophils % 0 % Neutrophils # 6.1 (1.3-7.7) k/uL Lymphocytes # 2.2 (1.0-4.8) k/uL Monocytes # 0.4 (0-1.0) k/uL Eosinophils # 0.2 (0-0.7) k/uL Basophils # 0.0 (0-0.2) k/uL Sodium 139 (137-145) mmol/L Potassium 4.1 (3.5-5.1) mmol/L Chloride 108 H (98-107) mmol/L Carbon Dioxide 22 (22-30) mmol/L Anion Gap 9 mmol/L BUN 15 (7-17) mg/dL Creatinine 0.73 (0.52-1.04) mg/dL Est GFR (CKD-EPI)AfAm >90 (>60 ml/min/1.73 sqM) Est GFR (CKD-EPI)NonAf >90 (>60 ml/min/1.73 sqM) Glucose 207 H (74-99) mg/dL Calcium 9.7 (8.4-10.2) mg/dL Total Bilirubin 0.3 (0.2-1.3) mg/dL AST 17 (14-36) U/L ALT 16 (4-34) U/L Alkaline Phosphatase 71 (38-126) U/L Total Protein 6.5 (6.3-8.2) g/dL Albumin 3.9 (3.5-5.0) g/dL Urine Color Urine Appearance (Clear) Urine pH (5.0-8.0) Ur Specific Rice (1.001-1.035) Urine Protein (Negative) Urine Glucose (UA) (Negative) Urine Ketones (Negative) Urine Blood (Negative) Urine Nitrite (Negative) Urine Bilirubin (Negative) Urine Urobilinogen (<2.0) mg/dL Ur Leukocyte Esterase (Negative) Urine HCG, Qual Not Detected (Not Detectd) 11/04/19 Range/Units 00:10 WBC (3.8-10.6) k/uL RBC (3.80-5.40) m/uL Hgb (11.4-16.0) gm/dL Hct (34.0-46.0) % MCV (80.0-100.0) fL MCH (25.0-35.0) pg MCHC (31.0-37.0) g/dL RDW (11.5-15.5) % Plt Count (150-450) k/uL Neutrophils % % Lymphocytes % % Monocytes % % Eosinophils % % Basophils % % Neutrophils # (1.3-7.7) k/uL Lymphocytes # (1.0-4.8) k/uL Monocytes # (0-1.0) k/uL Eosinophils # (0-0.7) k/uL Basophils # (0-0.2) k/uL Sodium (137-145) mmol/L Potassium (3.5-5.1) mmol/L Chloride (98-107) mmol/L Carbon Dioxide (22-30) mmol/L Anion Gap mmol/L BUN (7-17) mg/dL Creatinine (0.52-1.04) mg/dL Est GFR (CKD-EPI)AfAm (>60 ml/min/1.73 sqM) Est GFR (CKD-EPI)NonAf (>60 ml/min/1.73 sqM) Glucose (74-99) mg/dL Calcium (8.4-10.2) mg/dL Total Bilirubin (0.2-1.3) mg/dL AST (14-36) U/L ALT (4-34) U/L Alkaline Phosphatase (38-126) U/L Total Protein (6.3-8.2) g/dL Albumin (3.5-5.0) g/dL Urine Color Light Yellow Urine Appearance Clear (Clear) Urine pH 6.0 (5.0-8.0) Ur Specific Rice 1.009 (1.001-1.035) Urine Protein Negative (Negative) Urine Glucose (UA) Negative (Negative) Urine Ketones Negative (Negative) Urine Blood Negative (Negative) Urine Nitrite Negative (Negative) Urine Bilirubin Negative (Negative) Urine Urobilinogen <2.0 (<2.0) mg/dL Ur Leukocyte Esterase Negative (Negative) Urine HCG, Qual (Not Detectd) Disposition Clinical Impression: Headache, Migraine Disposition: HOME SELF-CARE Condition: Stable Instructions (If sedation given, give patient instructions): Acute Headache (ED) Additional Instructions: please follow with Dr. Vickers for further evaluation. Return to the emergency room for any new or worsening symptoms Is patient prescribed a controlled substance at d/c from ED?: No Referrals: None,Stated [Primary Care Provider] - 1-2 days Leah Vickers MD [Medical Doctor] - 1-2 days Time of Disposition: 01:19
[2019-11-04 02:01] VITALS: BP 100/60; PULSE 90; TEMP 98
== END 2019-11-04 02:01 | disposition home or self-care (01) ==
LOC: EC 22:43
DX: G43.909 Migraine, unspecified, not intractable, without status migrainosus (principal); D68.62 Lupus anticoagulant syndrome; E88.40 Mitochondrial metabolism disorder, unspecified; E11.42 Type 2 diabetes mellitus with diabetic polyneuropathy; E06.3 Autoimmune thyroiditis; E11.43 Type 2 diabetes mellitus with diabetic autonomic (poly)neuropathy; K31.84 Gastroparesis; F31.9 Bipolar disorder, unspecified; Z88.1 Allergy status to other antibiotic agents; Z88.2 Allergy status to sulfonamides; Z88.7 Allergy status to serum and vaccine; Z88.8 Allergy status to other drugs, medicaments and biological substances; Z91.010 Allergy to peanuts; Z91.041 Radiographic dye allergy status; Z79.01 Long term (current) use of anticoagulants; Z79.1 Long term (current) use of non-steroidal anti-inflammatories (NSAID); Z79.4 Long term (current) use of insulin; Z79.51 Long term (current) use of inhaled steroids; Z79.890 Hormone replacement therapy; Z79.899 Other long term (current) drug therapy; Z86.14 Personal history of Methicillin resistant Staphylococcus aureus infection; Z86.73 Personal history of transient ischemic attack (TIA), and cerebral infarction without residual deficits; Z86.718 Personal history of other venous thrombosis and embolism
CPT/HCPCS: 36415; 80053; 85025; 81003; 81025; 70450; 99284; 96374; 96375 ×5; 96376 ×2; J1200 ×2; J1100; J2765; J1642; J1885 ×2; J3475

== ENCOUNTER 2019-11-12 14:46 | Emergency (ER) | payer MEDICARE, OTHER ==
[2019-11-12] MEDS ORDERED: SODIUM CHLORIDE 0.9% 1,000 ML IV ONE (16:14)
--- NOTE | 2019-11-12 16:24 | ED ---
General Adult HPI - General Source: patient, RN notes reviewed, old records reviewed Mode of arrival: wheelchair Limitations: no limitations <Ashvin Sahni - Last Filed: 11/12/19 16:27> <Joe Bahena - Last Filed: 11/12/19 18:34> - General Chief complaint: Upper Respiratory Infection Stated complaint: Fever Time Seen by Provider: 11/12/19 16:13 - History of Present Illness Initial comments: 39-year-old female presenting for evaluation of cough, rhinorrhea, sore throat. Patient has had myalgias and fever at home for the past 24 hours. She reports a nonproductive cough and mild dyspnea. 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 She states she's had some nausea, no abdominal pain, no vomiting, no diarrhea. (Ashvin Sahni) - Related Data Home Medications Medication Instructions Recorded Confirmed tiZANidine [Zanaflex] 4 mg PO BID@0900,1500 12/04/18 10/26/19 Levothyroxine Sodium [Synthroid] 100 mcg PO DAILY 01/16/19 10/26/19 Cyanocobalamin (Vitamin B-12) 2,000 mcg PO DAILY 01/22/19 10/26/19 [Vitamin B-12] Levothyroxine Sodium [Synthroid] 125 mcg PO DAILY 01/22/19 10/26/19 Meloxicam [Mobic] 15 mg PO DAILY 03/01/19 10/26/19 traMADol HCL [Ultram] 50 mg PO BID PRN 06/28/19 10/26/19 Methenamine Hippurate 1 gm PO BID 07/12/19 10/26/19 Dexlansoprazole [Dexilant] 60 mg PO DAILY 10/08/19 10/26/19 Ergocalciferol [Vitamin D2 50,000 unit PO TAYLOR 10/08/19 10/26/19 (DRISDOL)] Fluticasone Nasal [place] [Flonase 1 spray EA NOSTRIL DAILY 10/08/19 10/26/19 Nasal [place]] Insulin Aspart [NovoLOG Flexpen] See Protocol SQ ACHS 10/08/19 10/26/19 Insulin Glargine,Hum.rec.anlog 50 unit SQ HS 11/18/19 12/06/19 [Lantus Solostar] Mirabegron [Myrbetriq] 25 mg PO DAILY 10/08/19 10/26/19 Linaclotide [Linzess] 145 mcg PO DAILY 10/09/19 10/26/19 ARIPiprazole [Abilify] 15 mg PO DAILY 10/26/19 10/26/19 Previous Rx's Medication Instructions Recorded Modafinil [Provigil] 200 mg PO DAILY tab 03/07/19 Fenofibrate [Lofibra] 160 mg PO HS tab 10/17/19 Gabapentin [Neurontin] 400 mg PO TID cap 10/17/19 Loratadine [Claritin] 10 mg PO DAILY tab 10/17/19 Lurasidone [Latuda] 100 mg PO 1800 28 Days tab 10/17/19 Magnesium Oxide [Mag-Ox] 200 mg PO HS tab 10/17/19 Melatonin 5 mg PO HS tablet 10/17/19 Metoclopramide [Reglan] 10 mg PO ACHS tab 10/17/19 Metoprolol Succinate (ER) [Toprol 50 mg PO DAILY tab.er.24h 10/17/19 XL] Ondansetron [Zofran] 8 mg PO Q6H PRN tab 10/17/19 Promethazine [Phenergan] 25 mg PO Q4H PRN tab 10/17/19 Rivaroxaban [Xarelto] 20 mg PO HS tab 10/17/19 Sertraline [Zoloft] 200 mg PO DAILY tab 10/17/19 Topiramate [Topamax] 200 mg PO BID tab 10/17/19 Trimethoprim [Trimpex] 100 mg PO HS tab 10/17/19 busPIRone HCL [Buspar] 30 mg PO BID 28 Days tab 10/17/19 cloNIDine HCL [Catapres] 0.1 mg PO HS tab 10/17/19 tiZANidine [Zanaflex] 8 mg PO HS tab 10/17/19 traZODone HCL [Desyrel] 200 mg PO HS #28 tab 10/17/19 Azithromycin [Zithromax Z-pack] 0 mg PO DIRECTED #1 pack 11/12/19 Allergies Allergy/AdvReac Type Severity Reaction Status Date / Time barium sulfate Allergy Anaphylaxis Verified 11/12/19 15:30 doxepin [Doxepin] Allergy Anaphylaxis Verified 11/12/19 15:30 ephedrine Allergy Unknown Verified 11/12/19 15:30 ertapenem [From Invanz] Allergy Rash/Hives Verified 11/12/19 15:30 influenza virus vaccine, Allergy severe Verified 11/12/19 15:30 specific swelling [Influenza Virus and hives Vacc,Specific] peanut oil AdvReac Severe Nausea & Verified 11/12/19 15:30 Vomiting,itching doxycycline AdvReac Nausea & Verified 11/12/19 15:30 Vomiting & Diarrhea peanut AdvReac Nausea & Verified 11/12/19 15:30 Vomiting Pertussis Vaccines AdvReac fever/seizu Verified 11/12/19 15:30 re pseudoephedrine AdvReac Chest Pain Verified 11/12/19 15:30 pseudoephedrine HCl AdvReac Chest Pain Verified 11/12/19 15:30 [From Sudafed] sulfamethoxazole AdvReac Nausea & Verified 11/12/19 15:30 [From Bactrim] Vomiting trimethoprim [From Bactrim] AdvReac Nausea & Verified 11/12/19 15:30 Vomiting Review of Systems ROS Other: All systems not noted in ROS Statement are negative. <Ashvin Sahni - Last Filed: 11/12/19 16:27> ROS Other: All systems not noted in ROS Statement are negative. <Joe Bahena - Last Filed: 11/12/19 18:34> ROS Statement: Those systems with pertinent positive or pertinent negative responses have been documented in the HPI. Past Medical History Past Medical History: Chest Pain / Angina, CVA/TIA, Diabetes Mellitus, Deep Vein Thrombosis (DVT), Neurologic Disorder, Syncope, Thyroid Disorder Additional Past Medical History / Comment(s): STROKE LIKE EPISODE D/T MITOCHRONDIAL DISEASE HAD WORK UP DONE AT [facility]. Dysautonomia-progressive neurological disorder, lupus/LUPUS ANTICOAGULANTS, ana maria's disease, lymphedema Lt arm d/t DVTs , v-tach, pituitary microadenoma. patent foramen ovale, narcolepsy, gastropareis, IDDM type II, falls, orthostatic hypotension/syncope, migraines with hemiplegia, pernicious anemia, polycystic o varian syndrome, neuropathy bilateral legs/feet - mild, uti's. History of Any Multi-Drug Resistant Organisms: ESBL, MRSA Date of last positivie culture/infection: 03/09/17 MRSA/ 05/17/18 ESBL MDRO Source:: MRSA LEFT ARM,/ESBL URINE ECOLI Past Surgical History: Uterine Ablation Additional Past Surgical History / Comment(s): colonscopy/egd, angie, PORT-A -CATH INSERTION 04-28-18 Past Anesthesia/Blood Transfusion Reactions: No Reported Reaction Additional Past Anesthesia/Blood Transfusion Reaction / Comment(s): patient states "It takes a lot of anesthesia for my body to react". Pt has received blood in past without reaction. Past Psychological History: Bipolar, Depression Smoking Status: Never smoker Past Alcohol Use History: None Reported Past Drug Use History: None Reported - Past Family History Brother(s) Family Medical History: Diabetes Mellitus, Hyperlipidemia, Hypertension Additional Family Medical History / Comment(s): Patient states she has 1 brother with no major medical problems. Father Family Medical History: Diabetes Mellitus, Hyperlipidemia, Hypertension Additional Family Medical History / Comment(s): DAD IS 70 YEARS OLD. Patient states she does not have any contact with her father and does not know his medical history. Mother Family Medical History: CVA/TIA, Deep Vein Thrombosis (DVT) Additional Family Medical History / Comment(s): antiphospholipid antibody syndrome <Ashvin Sahni - Last Filed: 11/12/19 16:27> General Exam Limitations: no limitations General appearance: alert, in no apparent distress Head exam: Present: atraumatic, normocephalic Eye exam: Present: normal appearance ENT exam: Present: normal exam, normal oropharynx, mucous membranes moist Neck exam: Present: normal inspection. Absent: tenderness, meningismus Respiratory exam: Present: normal lung sounds bilaterally. Absent: respiratory distress, wheezes Cardiovascular Exam: Present: normal rhythm, tachycardia GI/Abdominal exam: Present: soft. Absent: distended, tenderness, guarding Neurological exam: Present: alert Psychiatric exam: Present: normal affect, normal mood Skin exam: Present: warm, dry, intact. Absent: cyanosis, diaphoretic <Ashvin Sahni - Last Filed: 11/12/19 16:27> Course <Asvhin Sahni - Last Filed: 11/12/19 16:27> <Joe Bahena - Last Filed: 11/12/19 18:34> Vital Signs 11/12/19 11/12/19 11/12/19 15:27 16:10 16:14 Temperature 99.9 F H 100.7 F H Pulse Rate 121 H Respiratory 18 18 Rate Blood Pressure 129/80 O2 Sat by Pulse 97 Oximetry 11/12/19 18:14 Temperature Pulse Rate 105 H Respiratory 16 Rate Blood Pressure 133/86 O2 Sat by Pulse 98 Oximetry - Reevaluation(s) Reevaluation #1: 11/12/19 1700 Patient's care is signed out at shift change. X-ray, laboratory testing and [facility]eval[facility] Reevaluation #2: 11/12/19 18:34 patient symptoms are improved with fever control pain is controlled. (Joe Bahena) Medical Decision Making - Lab Data Result diagrams: 11/12/19 16:50 11/12/19 16:50 - Radiology Data Radiology results: report reviewed (chest x-rays negative for acute disease), image reviewed <Joe Bahena - Last Filed: 11/12/19 18:34> - Medical Decision Making 39 female to ER with febrile illness cough and congestion approach for infection will prescribe Z-Jerrell, continue fever control patient can be discharged home (Joe Bahena) - Lab Data Lab Results 11/12/19 11/12/19 11/12/19 Range/Units 16:28 16:50 16:50 WBC 12.0 H (3.8-10.6) k/uL RBC 4.15 (3.80-5.40) m/uL Hgb 11.5 (11.4-16.0) gm/dL Hct 35.6 (34.0-46.0) % MCV 85.7 (80.0-100.0) fL MCH 27.7 (25.0-35.0) pg MCHC 32.3 (31.0-37.0) g/dL RDW 13.8 (11.5-15.5) % Plt Count 451 H (150-450) k/uL Neutrophils % 80 % Lymphocytes % 13 % Monocytes % 4 % Eosinophils % 1 % Basophils % 0 % Neutrophils # 9.7 H (1.3-7.7) k/uL Lymphocytes # 1.5 (1.0-4.8) k/uL Monocytes # 0.5 (0-1.0) k/uL Eosinophils # 0.2 (0-0.7) k/uL Basophils # 0.0 (0-0.2) k/uL Sodium 139 (137-145) mmol/L Potassium 3.9 (3.5-5.1) mmol/L Chloride 109 H (98-107) mmol/L Carbon Dioxide 17 L (22-30) mmol/L Anion Gap 13 mmol/L BUN 10 (7-17) mg/dL Creatinine 0.62 (0.52-1.04) mg/dL Est GFR (CKD-EPI)AfAm >90 (>60 ml/min/1.73 sqM) Est GFR (CKD-EPI)NonAf >90 (>60 ml/min/1.73 sqM) Glucose 174 H (74-99) mg/dL Plasma Lactic Acid Joce (0.7-2.0) mmol/L Calcium 9.7 (8.4-10.2) mg/dL Urine Color Urine Appearance (Clear) Urine pH (5.0-8.0) Ur Specific [place] (1.001-1.035) Urine Protein (Negative) Urine Glucose (UA) (Negative) Urine Ketones (Negative) Urine Blood (Negative) Urine Nitrite (Negative) Urine Bilirubin (Negative) Urine Urobilinogen (<2.0) mg/dL Ur Leukocyte Esterase (Negative) Influenza Type A RNA Not Detected (Not Detectd) Influenza Type B (PCR) Not Detected (Not Detectd) 11/12/19 11/12/19 Range/Units 16:50 16:50 WBC (3.8-10.6) k/uL RBC (3.80-5.40) m/uL Hgb (11.4-16.0) gm/dL Hct (34.0-46.0) % MCV (80.0-100.0) fL MCH (25.0-35.0) pg MCHC (31.0-37.0) g/dL RDW (11.5-15.5) % Plt Count (150-450) k/uL Neutrophils % % Lymphocytes % % Monocytes % % Eosinophils % % Basophils % % Neutrophils # (1.3-7.7) k/uL Lymphocytes # (1.0-4.8) k/uL Monocytes # (0-1.0) k/uL Eosinophils # (0-0.7) k/uL Basophils # (0-0.2) k/uL Sodium (137-145) mmol/L Potassium (3.5-5.1) mmol/L Chloride (98-107) mmol/L Carbon Dioxide (22-30) mmol/L Anion Gap mmol/L BUN (7-17) mg/dL Creatinine (0.52-1.04) mg/dL Est GFR (CKD-EPI)AfAm (>60 ml/min/1.73 sqM) Est GFR (CKD-EPI)NonAf (>60 ml/min/1.73 sqM) Glucose (74-99) mg/dL Plasma Lactic Acid Joce 1.8 (0.7-2.0) mmol/L Calcium (8.4-10.2) mg/dL Urine Color Yellow Urine Appearance Clear (Clear) Urine pH 6.0 (5.0-8.0) Ur Specific [place] 1.018 (1.001-1.035) Urine Protein Negative (Negative) Urine Glucose (UA) Negative (Negative) Urine Ketones Negative (Negative) Urine Blood Negative (Negative) Urine Nitrite Negative (Negative) Urine Bilirubin Negative (Negative) Urine Urobilinogen <2.0 (<2.0) mg/dL Ur Leukocyte Esterase Negative (Negative) Influenza Type A RNA (Not Detectd) Influenza Type B (PCR) (Not Detectd) Disposition <Ashvin Sahni N - Last Filed: 11/12/19 16:27> Is patient prescribed a controlled substance at d/c from ED?: No <Joe Bahena - Last Filed: 11/12/19 18:34> Clinical Impression: Bronchitis, Upper respiratory tract infection, Fever Disposition: HOME SELF-CARE Condition: Good Instructions (If sedation given, give patient instructions): Upper Respiratory Infection (ED), Fever in Adults (ED) Referrals: Julissa Montano III, MD [Primary Care Provider] - 1-2 days
--- NOTE | 2019-11-12 16:32 | XR ---
EXAMINATION TYPE: XR chest 2V DATE OF EXAM: 11/12/2019 COMPARISON: 04/16/2019 HISTORY: Fever TECHNIQUE: Frontal and lateral views of the chest are obtained. FINDINGS: There is no focal air space opacity. No evidence for pneumothorax. No pleural effusion. The cardiac silhouette size is within normal limits. The osseous structures are grossly intact. IMPRESSION: 1. No acute cardiopulmonary process.
[2019-11-12 17:18] LABS: Basophils % (A) 0 %; Eosinophils # (A) 0.2 k/uL (0-0.7); Eosinophils % (A) 1 %; HCT 35.6 % (34.0-46.0); HGB 11.5 gm/dL (11.4-16.0); Lymphocytes # (A) 1.5 k/uL (1.0-4.8); Lymphocytes % (A) 13 %; MCH 27.7 pg (25.0-35.0); MCHC 32.3 g/dL (31.0-37.0); MCV 85.7 fL (80.0-100.0); Mean Platelet Volume 7.1; Monocytes # (A) 0.5 k/uL (0-1.0); Monocytes % (A) 4 %; Neutrophils # (A) 9.7 k/uL (1.3-7.7); Neutrophils % (A) 80 %; Platelet Count 451 k/uL (150-450); RBC 4.15 m/uL (3.80-5.40); RDW 13.8 % (11.5-15.5)
[2019-11-12 17:19] LABS: Appearance,Urine Clear (Clear); Bilirubin,Urine Negative (Negative); Blood,Urine Negative (Negative); Color,Urine Yellow; Glucose,Urine (UA) Negative (Negative); Ketones,Urine Negative (Negative); Leukocyte Esterase,Urine Negative (Negative); Nitrite,Urine Negative (Negative); Protein,Urine Negative (Negative); Specific Gravity,Urine 1.018 (1.001-1.035); Urobilinogen,Urine <2.0 mg/dL (<2.0)
[2019-11-12 17:23] LABS: African American GFR (CKD) >90 (>60 ml/min/1.73 sqM); Anion Gap 13 mmol/L; Blood Urea Nitrogen 10 mg/dL (7-17); Calcium 9.7 mg/dL (8.4-10.2); Carbon Dioxide 17 mmol/L (22-30); Chloride 109 mmol/L (98-107); Glucose 174 mg/dL (74-99); Non-African American GFR(CKD) >90 (>60 ml/min/1.73 sqM); Potassium 3.9 mmol/L (3.5-5.1); Sodium 139 mmol/L (137-145)
[2019-11-12] MEDS ORDERED: ACETAMINOPHEN TAB 500 MG TAB PO STA (18:07)
[2019-11-12] MEDS ORDERED: KETOROLAC 30 MG/ML 1 ML VIAL IVP STA (18:07)
[2019-11-12 18:15] VITALS: PULSE 105; RESP 16
[2019-11-12] MEDS ORDERED: DEXAMETHASONE SOD PHOSPHATE 10 MG/ML 1 ML VIAL IV STA (18:34)
[2019-11-12 18:52] VITALS: BP 128/79; TEMP 100.4
== END 2019-11-12 18:51 | disposition home or self-care (01) ==
LOC: EC 14:46
DX: J40 Bronchitis, not specified as acute or chronic (principal); J06.9 Acute upper respiratory infection, unspecified; E07.9 Disorder of thyroid, unspecified; E11.43 Type 2 diabetes mellitus with diabetic autonomic (poly)neuropathy; E11.40 Type 2 diabetes mellitus with diabetic neuropathy, unspecified; K31.84 Gastroparesis; E06.3 Autoimmune thyroiditis; F31.9 Bipolar disorder, unspecified; Z79.890 Hormone replacement therapy; Z79.1 Long term (current) use of non-steroidal anti-inflammatories (NSAID); Z79.51 Long term (current) use of inhaled steroids; Z79.4 Long term (current) use of insulin; Z79.899 Other long term (current) drug therapy; Z88.8 Allergy status to other drugs, medicaments and biological substances; Z88.7 Allergy status to serum and vaccine; Z91.010 Allergy to peanuts; Z88.1 Allergy status to other antibiotic agents; Z88.2 Allergy status to sulfonamides; Z86.718 Personal history of other venous thrombosis and embolism; Z86.73 Personal history of transient ischemic attack (TIA), and cerebral infarction without residual deficits; Z99.3 Dependence on wheelchair
CPT/HCPCS: 36415; 80048; 83605; 85025; 81003; 87502; 71046; 99284; 96374; 96375; 96361; J1100; J1885

== ENCOUNTER 2019-11-15 10:45 | Emergency (ER) | payer MEDICARE, OTHER ==
[2019-11-15 11:05] VITALS: TEMP 98.7
--- NOTE | 2019-11-15 12:05 | XR ---
EXAMINATION TYPE: XR chest 2V DATE OF EXAM: 11/15/2019 COMPARISON: 11/12/2019 HISTORY: 39-year-old female with fever and cough TECHNIQUE: AP and lateral views FINDINGS: Heart normal size. Aortopulmonary vasculature within normal limits. Right anterior chest wall injecti on port with catheter tip at the mid SVC. No consolidation or pleural effusion. IMPRESSION: No acute cardiopulmonary process.
[2019-11-15] MEDS ORDERED: methylPREDNISolone SOD SUCCI 125 MG/2 ML VIAL IM ONE (12:41)
--- NOTE | 2019-11-15 12:41 | ED ---
URI HPI - General Chief Complaint: Upper Respiratory Infection Stated Complaint: Cough, Fever, Bronchitis Time Seen by Provider: 11/15/19 11:27 Source: patient Mode of arrival: wheelchair Limitations: physical limitation - History of Present Illness Initial Comments: Patient is a 31-year-old female presenting to emergency Department with complaints of cough and increasing shortness of breath 4 days. Patient was recently seen in the ER 3 days ago for same complaint. Patient states she was diagnosed with bronchitis and given and injection of steroids and started on azithromycin. Patient states she feels like her cough is worsening. Patient does admit to fever and chills. Patient denies chest pain, nausea, vomiting, diarrhea. Patient has no other complaints at this time. 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 Upon arrival to the ER, vital signs are stable. - Related Data Home Medications Medication Instructions Recorded Confirmed tiZANidine [Zanaflex] 4 mg PO BID@0900,1500 12/04/18 10/26/19 Levothyroxine Sodium [Synthroid] 100 mcg PO DAILY 01/16/19 10/26/19 Cyanocobalamin (Vitamin B-12) 2,000 mcg PO DAILY 01/22/19 10/26/19 [Vitamin B-12] Levothyroxine Sodium [Synthroid] 125 mcg PO DAILY 01/22/19 10/26/19 Meloxicam [Mobic] 15 mg PO DAILY 03/01/19 10/26/19 traMADol HCL [Ultram] 50 mg PO BID PRN 06/28/19 10/26/19 Methenamine Hippurate 1 gm PO BID 07/12/19 10/26/19 Dexlansoprazole [Dexilant] 60 mg PO DAILY 10/08/19 10/26/19 Ergocalciferol [Vitamin D2 50,000 unit PO TAYLOR 10/08/19 10/26/19 (DRISDOL)] Fluticasone Nasal [place] [Flonase 1 spray EA NOSTRIL DAILY 10/08/19 10/26/19 Nasal [place]] Insulin Aspart [NovoLOG Flexpen] See Protocol SQ ACHS 10/08/19 10/26/19 Insulin Glargine,Hum.rec.anlog 50 unit SQ HS 10/08/19 10/26/19 [Lantus Solostar] Mirabegron [Myrbetriq] 25 mg PO DAILY 10/08/19 10/26/19 Linaclotide [Linzess] 145 mcg PO DAILY 10/09/19 10/26/19 ARIPiprazole [Abilify] 15 mg PO DAILY 10/26/19 10/26/19 Previous Rx's Medication Instructions Recorded Modafinil [Provigil] 200 mg PO DAILY tab 03/07/19 Fenofibrate [Lofibra] 160 mg PO HS tab 10/17/19 Gabapentin [Neurontin] 400 mg PO TID cap 10/17/19 Loratadine [Claritin] 10 mg PO DAILY tab 10/17/19 Lurasidone [Latuda] 100 mg PO 1800 28 Days tab 10/17/19 Magnesium Oxide [Mag-Ox] 200 mg PO HS tab 10/17/19 Melatonin 5 mg PO HS tablet 10/17/19 Metoclopramide [Reglan] 10 mg PO ACHS tab 10/17/19 Metoprolol Succinate (ER) [Toprol 50 mg PO DAILY tab.er.24h 10/17/19 XL] Ondansetron [Zofran] 8 mg PO Q6H PRN tab 10/17/19 Promethazine [Phenergan] 25 mg PO Q4H PRN tab 10/17/19 Rivaroxaban [Xarelto] 20 mg PO HS tab 10/17/19 Sertraline [Zoloft] 200 mg PO DAILY tab 10/17/19 Topiramate [Topamax] 200 mg PO BID tab 10/17/19 Trimethoprim [Trimpex] 100 mg PO HS tab 10/17/19 busPIRone HCL [Buspar] 30 mg PO BID 28 Days tab 10/17/19 cloNIDine HCL [Catapres] 0.1 mg PO HS tab 10/17/19 tiZANidine [Zanaflex] 8 mg PO HS tab 10/17/19 traZODone HCL [Desyrel] 200 mg PO HS #28 tab 10/17/19 Azithromycin [Zithromax Z-pack] 0 mg PO DIRECTED #1 pack 11/12/19 Albuterol Inhaler [Ventolin Hfa 1 - 2 puff INHALATION RT-Q6H PRN 11/15/19 Inhaler] #1 inhaler methylPREDNISolone [Medrol Dose 4 mg PO DIRECTED #1 pack 11/15/19 Pack] Allergies Allergy/AdvReac Type Severity Reaction Status Date / Time barium sulfate Allergy Anaphylaxis Verified 11/12/19 15:30 doxepin [Doxepin] Allergy Anaphylaxis Verified 11/12/19 15:30 ephedrine Allergy Unknown Verified 11/12/19 15:30 ertapenem [From Invanz] Allergy Rash/Hives Verified 11/12/19 15:30 influenza virus vaccine, Allergy severe Verified 11/12/19 15:30 specific swelling [Influenza Virus and hives Vacc,Specific] peanut oil AdvReac Severe Nausea & Verified 11/12/19 15:30 Vomiting,itching doxycycline AdvReac Nausea & Verified 11/12/19 15:30 Vomiting & Diarrhea peanut AdvReac Nausea & Verified 11/12/19 15:30 Vomiting Pertussis Vaccines AdvReac fever/seizu Verified 11/12/19 15:30 re pseudoephedrine AdvReac Chest Pain Verified 11/12/19 15:30 pseudoephedrine HCl AdvReac Chest Pain Verified 11/12/19 15:30 [From Sudafed] sulfamethoxazole AdvReac Nausea & Verified 11/12/19 15:30 [From Bactrim] Vomiting trimethoprim [From Bactrim] AdvReac Nausea & Verified 11/12/19 15:30 Vomiting Review of Systems ROS Statement: Those systems with pertinent positive or pertinent negative responses have been documented in the HPI. ROS Other: All systems not noted in ROS Statement are negative. Past Medical History Past Medical History: Chest Pain / Angina, CVA/TIA, Diabetes Mellitus, Deep Vein Thrombosis (DVT), Neurologic Disorder, Syncope, Thyroid Disorder Additional Past Medical History / Comment(s): STROKE LIKE EPISODE D/T MITOCHRONDIAL DISEASE HAD WORK UP DONE AT [facility]. Dysautonomia-progressive neurological disorder, lupus/LUPUS ANTICOAGULANTS, ana maria's disease, lymphedema Lt arm d/t DVTs , v-tach, pituitary microadenoma. patent foramen ovale, narcolepsy, gastropareis, IDDM type II, falls, orthostatic hypotension/syncope, migraines with hemiplegia, pernicious anemia, polycystic ovarian syndrome, neuropathy bilateral legs/feet - mild, uti's. History of Any Multi-Drug Resistant Organisms: ESBL, MRSA Date of last positivie culture/infection: 03/09/17 MRSA/ 05/17/18 ESBL MDRO Source:: MRSA LEFT ARM,/ESBL URINE ECOLI Past Surgical History: Uterine Ablation Additional Past Surgical History / Comment(s): colonscopy/egd, angie, PORT-A -CATH INSERTION 04-28-18 Past Anesthesia/Blood Transfusion Reactions: No Reported Reaction Additional Past Anesthesia/Blood Transfusion Reaction / Comment(s): patient states "It takes a lot of anesthesia for my body to react". Pt has received blood in past without reaction. Past Psychological History: Bipolar, Depression Smoking Status: Never smoker Past Alcohol Use History: None Reported Past Drug Use History: None Reported - Past Family History Brother(s) Family Medical History: Diabetes Mellitus, Hyperlipidemia, Hypertension Additional Family Medical History / Comment(s): Patient states she has 1 brother with no major medical problems. Father Family Medical History: Diabetes Mellitus, Hyperlipidemia, Hypertension Additional Family Medical History / Comment(s): DAD IS 70 YEARS OLD. Patient states she does not have any contact with her father and does not know his medical history. Mother Family Medical History: CVA/TIA, Deep Vein Thrombosis (DVT) Additional Family Medical History / Comment(s): antiphospholipid antibody syndrome General Exam - General Exam Comments Initial Comments: GENERAL: Well-appearing, well-nourished and in no acute distress. HEAD: Atraumatic, normocephalic. EYES: Pupils equal round and reactive to light, extraocular movements intact, sclera anicteric, conjunctiva are normal. ENT: TMs normal, nares patent, oropharynx clear without exudates. Moist mucous membranes. NECK: Normal range of motion, supple without lymphadenopathy or JVD. LUNGS: Breath sounds clear to auscultation bilaterally and equal. No wheezes rales or rhonchi. HEART: Regular rate and rhythm without murmurs, rubs or gallops. ABDOMEN: Soft, nontender, normoactive bowel sounds. No guarding, no rebound. No masses appreciated. : Deferred EXTREMITIES: Normal range of motion, no pitting or edema. No clubbing or cyanosis. SKIN: Warm, Dry, normal turgor, no rashes or lesions noted. Limitations: physical limitation Course Vital Signs 11/15/19 11/15/19 11:03 13:08 Temperature 98.7 F Pulse Rate 102 H 81 Respiratory 19 16 Rate Blood Pressure 144/100 135/74 O2 Sat by Pulse 98 99 Oximetry Medical Decision Making - Medical Decision Making Patient is a 39-year-old female presenting with a cough 4 days. Patient was seen in the ER 3 days ago for same complaint and diagnosed with bronchitis. Repeat chest x-ray today shows no acute changes, no acute findings. Patient's vital signs are normal. Patient was started on azithromycin and given an injection of solu-Medrol 3 days ago. I discussed these findings with the patient. Patient will continue with azithromycin and will be given another injection of solu- Medrol today as well as started on a Medrol Dosepak that way she will begin tomorrow. Patient is in agreement with this plan of care. Patient stable for discharge at this time. Return parameters were discussed with the patient and she verbalized understanding. Case discussed with Dr. Grier. Disposition Clinical Impression: Cough, Bronchitis Disposition: HOME SELF-CARE Condition: Stable Instructions (If sedation given, give patient instructions): Acute Bronchitis (ED) Additional Instructions: Please return to the Emergency Department if symptoms worsen or any other concerns. Continue with antibiotic. Start oral steroids tomorrow. Follow-up with PCP next week. Prescriptions: methylPREDNISolone [Medrol Dose Pack] 4 mg PO DIRECTED #1 pack Albuterol Inhaler [Ventolin Hfa Inhaler] 1 - 2 puff INHALATION RT-Q6H PRN #1 inhaler PRN Reason: Cough Is patient prescribed a controlled substance at d/c from ED?: No Referrals: Julissa Montano III, MD [Primary Care Provider] - 1-2 days
[2019-11-15 13:10] VITALS: BP 135/74; PULSE 81; RESP 16
== END 2019-11-15 13:07 | disposition home or self-care (01) ==
LOC: EC 10:45
DX: J40 Bronchitis, not specified as acute or chronic (principal); E11.40 Type 2 diabetes mellitus with diabetic neuropathy, unspecified; E06.3 Autoimmune thyroiditis; G81.90 Hemiplegia, unspecified affecting unspecified side; F31.9 Bipolar disorder, unspecified; M32.9 Systemic lupus erythematosus, unspecified; Z79.890 Hormone replacement therapy; Z79.1 Long term (current) use of non-steroidal anti-inflammatories (NSAID); Z79.51 Long term (current) use of inhaled steroids; Z79.4 Long term (current) use of insulin; Z79.899 Other long term (current) drug therapy; Z88.8 Allergy status to other drugs, medicaments and biological substances; Z91.010 Allergy to peanuts; Z88.7 Allergy status to serum and vaccine; Z88.1 Allergy status to other antibiotic agents; Z88.2 Allergy status to sulfonamides; Z86.718 Personal history of other venous thrombosis and embolism; Z86.73 Personal history of transient ischemic attack (TIA), and cerebral infarction without residual deficits; Z99.3 Dependence on wheelchair
CPT/HCPCS: 71046; 99283; 96372; J2930

== ENCOUNTER 2019-11-29 21:20 | Inpatient (IN) | payer MEDICARE, OTHER ==
[2019-11-29] MEDS ORDERED: SODIUM CHLORIDE 0.9% 1,000 ML IV ONE (22:03)
[2019-11-29] MEDS ORDERED: SODIUM CHLORIDE 0.9% 500 ML 500 ML IV ONE (22:03)
[2019-11-29 22:14] LABS: Bacteria,Urine Rare /hpf; Hyaline Casts,Urine 1 /lpf (0-2); Mucus,Urine Rare /hpf; RBC,Urine 1 /hpf (0-5); Squamous Epithelial Cell,Urine 4 /hpf (0-4); WBC,Urine 2 /hpf (0-5)
[2019-11-29 22:24] LABS: Appearance,Urine Clear (Clear); Color,Urine Dark Orange
--- NOTE | 2019-11-29 22:56 | XR ---
EXAMINATION TYPE: XR chest 2V DATE OF EXAM: 11/29/2019 COMPARISON: 11/15/2019 HISTORY: Fever TECHNIQUE: FINDINGS: Heart and mediastinum are normal. Lungs are clear. Diaphragm is normal. There is right cent ral venous catheter with the tip in the superior vena cava. IMPRESSION: Normal chest. No change.
[2019-11-29] MEDS ORDERED: NALOXONE 0.4 MG/ML 1 ML VIAL IV PRN (23:07)
--- NOTE | 2019-11-29 23:09 | ED ---
Recheck HPI - General Chief Complaint: Recheck/Abnormal Lab/Rx Stated Complaint: Fever, UTI Time Seen by Provider: 11/29/19 21:30 Source: patient Mode of arrival: wheelchair Limitations: no limitations - History of Present Illness Initial Comments: 39-year-old female with history of mitochondrial disease presenting today for chief complaint of general malaise abnormal labs. Patient states she had routine lab draw today which revealed a white count of 17. Patient states she is history of chronic UTIs and has had dysuria she does have history of neur ogenic bladder. She states this feels similar to when she's had urosepsis in the past. Patient states she feels as though she has had a fever but has not recorded one at home. Patient states she has had a cough for the past 1-2 weeks she denies any chest pain shortness of breath abdominal pain nausea vomiting diarrhea denies any headache neck stiffness. Patient denies any other localizing symptoms. Patient states she is on a chronic antibiotic trimethoprim (no sulfa) for chronic UTIs. Patient HR elevated on arrival. - Related Data Home Medications Medication Instructions Recorded Confirmed tiZANidine [Zanaflex] 4 mg PO BID@0900,1500 12/04/18 11/30/19 Levothyroxine Sodium [Synthroid] 100 mcg PO DAILY 01/16/19 11/30/19 Cyanocobalamin (Vitamin B-12) 2,000 mcg PO DAILY 01/22/19 11/30/19 [Vitamin B-12] Levothyroxine Sodium [Synthroid] 125 mcg PO DAILY 01/22/19 11/30/19 Meloxicam [Mobic] 15 mg PO DAILY 03/01/19 11/30/19 traMADol HCL [Ultram] 50 mg PO BID PRN 06/28/19 11/30/19 Methenamine Hippurate 1 gm PO BID 07/12/19 11/30/19 Dexlansoprazole [Dexilant] 60 mg PO DAILY 10/08/19 11/30/19 Ergocalciferol [Vitamin D2 50,000 unit PO TAYLOR 10/08/19 11/30/19 (DRISDOL)] Fluticasone Nasal [place] [Flonase 1 spray EA NOSTRIL HS 10/08/19 11/30/19 Nasal [place]] Insulin Aspart [NovoLOG Flexpen] See Protocol SQ ACHS 10/08/19 11/30/19 Insulin Glargine,Hum.rec.anlog 54 unit SQ HS 10/08/19 11/30/19 [Lantus Solostar] Mirabegron [Myrbetriq] 25 mg PO DAILY 10/08/19 11/30/19 Acetaminophen Tab [Tylenol Tab] 650 mg PO Q6H PRN 11/29/19 11/30/19 [place] Carbonate 600 mg PO HS 11/29/19 11/30/19 Prochlorperazine Suppository 25 mg RECTAL Q8H PRN 11/29/19 11/30/19 [Compazine] Topiramate [Topamax] 50 mg PO DAILY 11/29/19 11/30/19 Promethazine [Phenergan] 25 mg PO Q6H PRN 11/30/19 11/30/19 Previous Rx's Medication Instructions Recorded Modafinil [Provigil] 200 mg PO DAILY tab 03/07/19 Fenofibrate [Lofibra] 160 mg PO HS tab 10/17/19 Gabapentin [Neurontin] 400 mg PO TID cap 10/17/19 Metoclopramide [Reglan] 10 mg PO ACHS tab 10/17/19 Metoprolol Succinate (ER) [Toprol 50 mg PO DAILY tab.er.24h 10/17/19 XL] Ondansetron [Zofran] 8 mg PO Q6H PRN tab 10/17/19 Rivaroxaban [Xarelto] 20 mg PO HS tab 10/17/19 Trimethoprim [Trimpex] 100 mg PO HS tab 10/17/19 busPIRone HCL [Buspar] 30 mg PO BID 28 Days tab 10/17/19 cloNIDine HCL [Catapres] 0.1 mg PO HS tab 10/17/19 tiZANidine [Zanaflex] 8 mg PO HS tab 10/17/19 traZODone HCL [Desyrel] 200 mg PO HS #28 tab 10/17/19 Allergies Allergy/AdvReac Type Severity Reaction Status Date / Time barium sulfate Allergy Anaphylaxis Verified 11/29/19 23:55 doxepin [Doxepin] Allergy Anaphylaxis Verified 11/29/19 23:55 ephedrine Allergy Unknown Verified 11/29/19 23:55 ertapenem [From Invanz] Allergy Rash/Hives Verified 11/29/19 23:55 influenza virus vaccine, Allergy severe Verified 11/29/19 23:55 specific swelling [Influenza Virus and hives Vacc,Specific] peanut oil AdvReac Severe Nausea & Verified 11/29/19 23:55 Vomiting,itching doxycycline AdvReac Nausea & Verified 11/29/19 23:55 Vomiting & Diarrhea peanut AdvReac Nausea & Verified 11/29/19 23:55 Vomiting Pertussis Vaccines AdvReac fever/seizu Verified 11/29/19 23:55 re pseudoephedrine AdvReac Chest Pain Verified 11/29/19 23:55 pseudoephedrine HCl AdvReac Chest Pain Verified 11/29/19 23:55 [From Sudafed] sulfamethoxazole AdvReac Nausea & Verified 11/29/19 23:55 [From Bactrim] Vomiting trimethoprim [From Bactrim] AdvReac Nausea & Verified 11/29/19 23:55 Vomiting Review of Systems ROS Statement: Those systems with pertinent positive or pertinent negative responses have been documented in the HPI. ROS Other: All systems not noted in ROS Statement are negative. Past Medical History Past Medical History: Chest Pain / Angina, CVA/TIA, Diabetes Mellitus, Deep Vein Thrombosis (DVT), Neurologic Disorder, Syncope, Thyroid Disorder Additional Past Medical History / Comment(s): STROKE LIKE EPISODE D/T MITOCHRONDIAL DISEASE HAD WORK UP DONE AT [facility]. Dysautonomia-progressive neurol ogical disorder, lupus/LUPUS ANTICOAGULANTS, ana maria's disease, lymphedema Lt arm d/t DVTs , v-tach, pituitary microadenoma. patent foramen ovale, narcolepsy, gastropareis, IDDM type II, falls, orthostatic hypotension/syncope, migraines with hemiplegia, pernicious anemia, polycystic ovarian syndrome, neuropathy bilateral legs/feet - mild, uti's. History of Any Multi-Drug Resistant Organisms: ESBL, MRSA Date of last positivie culture/infection: 03/09/17 MRSA/ 05/17/18 ESBL MDRO Source:: MRSA LEFT ARM,/ESBL URINE ECOLI Past Surgical History: Uterine Ablation Additional Past Surgical History / Comment(s): colonscopy/egd, angie, PORT-A -CATH INSERTION 04-28-18 Past Anesthesia/Blood Transfusion Reactions: No Reported Reaction Additional Past Anesthesia/Blood Transfusion Reaction / Comment(s): patient states "It takes a lot of anesthesia for my body to react". Pt has received blood in past without reaction. Past Psychological History: Bipolar, Depression Smoking Status: Never smoker Past Alcohol Use History: None Reported Past Drug Use History: None Reported - Past Family History Brother(s) Family Medical History: Diabetes Mellitus, Hyperlipidemia, Hypertension Additional Family Medical History / Comment(s): Patient states she has 1 brother with no major medical problems. Father Family Medical History: Diabetes Mellitus, Hyperlipidemia, Hypertension Additional Family Medical History / Comment(s): DAD IS 70 YEARS OLD. Patient states she does not have any contact with her father and does not know his medical history. Mother Family Medical History: CVA/TIA, Deep Vein Thrombosis (DVT) Additional Family Medical History / Comment(s): antiphospholipid antibody syndrome General Exam - General Exam Comments Initial Comments: General: The patient is awake and alert, in no distress Eye: Pupils are equal, round and reactive to light, extra-ocular movements are intact. No nystagmus. There is normal conjunctiva bilaterally. No signs of icterus. Ears, nose, mouth and throat: There are moist mucous membranes and no oral lesions. Neck: The neck is supple, there is no tenderness or JVD. Cardiovascular: There is a regular rate and rhythm. No murmur, rub or gallop is appreciated. Respiratory: Lungs are clear to auscultation, respirations are non-labored, breath sounds are equal. No wheezes, stridor, rales, or rhonchi. Gastrointestinal: Soft, non-distended, non-tender abdomen without masses or organomegaly noted. There is no rebound or guarding present. No CVA tenderness. Bowel sounds are unremarkable. Musculoskeletal: Normal ROM, no tenderness. Strength 5/5. Sensation intact. Pulses equal bilaterally 2+. Neurological: A&O x 3. CN II-XII intact grossly, There are no obvious motor or sensory deficits. Coordination appears grossly intact. Speech is normal. Skin: Skin is warm and dry and no rashes or lesions are noted. Psychiatric: Cooperative, appropriate mood & affect, normal judgment. Limitations: no limitations Course Vital Signs 11/29/19 21:21 Temperature 99.1 F Pulse Rate 107 H Respiratory 20 Rate Blood Pressure 148/92 O2 Sat by Pulse 96 Oximetry Medical Decision Making - Medical Decision Making 39-year-old female presenting today for chief complaint of general malaise leukocytosis. Outpatient lab draw which was reviewed. No focalizing symptom aside from dysuria. Patient has history of urosepsis on chronic antibiotic. Urine culture pending. Patient blood cultures pending. She does have a port. Patient CXR clear. UA few WBC patietn also taking AZO. At this time given concern for sepsis given laboratory findings with lactic acidosis patient will be admitted for IVF, IV antibiotics, and further monitoring. Discussed case with Dr. Mckeon who is agreeable to admission at this time. Patient agreeable, transferred to floor. EKG ventricular rate 90 bpm, FL interval 144 ms, QRS duration 96 ms, QT/QTC 382/467. This is normal sinus no ST elevation or depression noted - Lab Data Lab Results 11/29/19 11/29/19 11/29/19 Range/Units 21:48 21:48 21:58 Plasma Lactic Acid Joce 2.3 H* (0.7-2.0) mmol/L Troponin I (0.000-0.034) ng/mL Urine Color Dark [place] Urine Appearance Clear (Clear) Urine RBC 1 (0-5) /hpf Urine WBC 2 (0-5) /hpf Ur Squamous Epith Cells 4 (0-4) /hpf Urine Bacteria Rare H (None) /hpf Hyaline Casts 1 (0-2) /lpf Urine Mucus Rare H (None) /hpf Urine HCG, Qual Not Detected (Not Detectd) Influenza Type A RNA (Not Detectd) Influenza Type B (PCR) (Not Detectd) 11/29/19 11/29/19 Range/Units 21:58 22:30 Plasma Lactic Acid Joce (0.7-2.0) mmol/L Troponin I <0.012 (0.000-0.034) ng/mL Urine Color Urine Appearance (Clear) Urine RBC (0-5) /hpf Urine WBC (0-5) /hpf Ur Squamous Epith Cells (0-4) /hpf Urine Bacteria (None) /hpf Hyaline Casts (0-2) /lpf Urine Mucus (None) /hpf Urine HCG, Qual (Not Detectd) Influenza Type A RNA Not Detected (Not Detectd) Influenza Type B (PCR) Not Detected (Not Detectd) Disposition Clinical Impression: Sepsis, Leukocytosis, Lactic acidosis, Dysuria Disposition: ADMITTED IP TO THIS HOSP Condition: Serious Is patient prescribed a controlled substance at d/c from ED?: No Time of Disposition: 23:07 Decision to Admit Reason: Admit from EC Decision Date: 11/29/19 Decision Time: 23:07
[2019-11-30 07:47] LABS: Glucose,Whole Blood 138 mg/dL (75-99)
[2019-11-30] MEDS ORDERED: NON FORMULARY DRUG (Mirabegron [Myrbetriq] 25 MG) PO SCH (10:45)
[2019-11-30] MEDS ORDERED: METHENAMINE HIPPURATE 1 GM PO SCH (10:45)
[2019-11-30] MEDS ORDERED: LEVOTHYROXINE 100 MCG TAB PO SCH (10:45)
[2019-11-30] MEDS: METOPROLOL SUCCINATE (ER) 50 MG TAB.ER.24H PO SCH (11:13)
[2019-11-30] MEDS: PANTOPRAZOLE 40 MG TABLET PO SCH (11:13)
[2019-11-30] MEDS: GABAPENTIN 400 MG CAP PO SCH ×3 (11:13→21:16)
[2019-11-30] MEDS: MODAFINIL 200 MG TAB PO SCH (11:13)
[2019-11-30] MEDS: CYANOCOBALAMIN 500 MCG TAB PO SCH (11:13)
[2019-11-30] MEDS: TOPIRAMATE 25 MG TAB PO SCH (11:14)
[2019-11-30] MEDS: SODIUM CHLORIDE 0.9% 1,000 ML IV SCH ×4 (11:21→23:36)
[2019-11-30] MEDS: LEVOTHYROXINE 125 MCG TAB PO SCH (11:22)
[2019-11-30] MEDS: METOCLOPRAMIDE 10 MG TAB PO SCH ×3 (11:23→21:15)
[2019-11-30] MEDS: LEVOTHYROXINE 100 MCG TAB PO SCH (11:23)
[2019-11-30] MEDS: LORATADINE 10 MG TAB PO SCH (11:23)
[2019-11-30 12:06] LABS: Glucose,Whole Blood 174 mg/dL (75-99)
[2019-11-30 13:49] LABS: Basophils # (A) 0.1 k/uL (0-0.2); Basophils % (A) 1 %; Eosinophils # (A) 0.2 k/uL (0-0.7); Eosinophils % (A) 2 %; HCT 35.3 % (34.0-46.0); Hypochromasia Slight; Lymphocytes # (A) 2.5 k/uL (1.0-4.8); Lymphocytes % (A) 22 %; MCH 26.8 pg (25.0-35.0); MCHC 31.1 g/dL (31.0-37.0); MCV 86.2 fL (80.0-100.0); Mean Platelet Volume 7.2; Monocytes # (A) 0.6 k/uL (0-1.0); Monocytes % (A) 5 %; Neutrophils # (A) 7.9 k/uL (1.3-7.7); Neutrophils % (A) 69 %; Platelet Count 405 k/uL (150-450); RDW 14.1 % (11.5-15.5); WBC 11.4 k/uL (3.8-10.6)
[2019-11-30 14:46] VITALS: BMI 39.1
[2019-11-30] MEDS: tiZANidine 4 MG TAB PO SCH ×2 (16:33→22:02)
[2019-11-30 17:12] LABS: Glucose,Whole Blood 124 mg/dL (75-99)
--- NOTE | 2019-11-30 18:20 | P.HPIM ---
History of Present Illness H&P Date: 11/30/19 39-year-old female with history of mitochondrial disease presenting today for chief complaint of general malaise abnormal labs. Patient states she had routine lab draw today which revealed a white count of 17. Patient states she is history of chronic UTIs and has had dysuria she does have history of neurogenic bladder. She states this feels similar to when she's had urosepsis in the past. Patient states she feels as though she has had a fever but has not recorded one at home. Patient states she has had a cough for the past 1-2 weeks she denies any chest pain shortness of breath abdominal pain nausea vomiting diarrhea denies any headache neck stiffness. Patient denies any other localizin g symptoms. Patient states she is on a chronic antibiotic trimethoprim (no sulfa) for chronic UTIs. Patient HR elevated on arrival. Review of Systems REVIEW OF SYSTEMS: CONSTITUTIONAL: No fever, no malaise, no fatigue. HEENT: No recent visual problems or hearing problems. Denied any sore throat. CARDIOVASCULAR: No chest pain, orthopnea, PND, no palpitations, no syncope. PULMONARY: No shortness of breath, no cough, no hemoptysis. GASTROINTESTINAL: No diarrhea, no nausea, no vomiting, no abdominal pain. NEUROLOGICAL: No headaches, no weakness, no numbness. HEMATOLOGICAL: Denies any bleeding or petechiae. GENITOURINARY: Denies any burning micturition, frequency, or urgency. MUSCULOSKELETAL/RHEUMATOLOGICAL: Denies any joint pain, swelling, or any muscle pain. ENDOCRINE: Denies any polyuria or polydipsia. The rest of the 14-point review of systems is negative. Past Medical History Past Medical History: Chest Pain / Angina, CVA/TIA, Diabetes Mellitus, Deep Vein Thrombosis (DVT), Neurologic Disorder, Syncope, Thyroid Disorder Additional Past Medical History / Comment(s): STROKE LIKE EPISODE D/T MITOCHRONDIAL DISEASE HAD WORK UP DONE AT [facility]. Dysautonomia-progressive neurological disorder, lupus/LUPUS ANTICOAGULANTS, ana maria's disease, lymphedema Lt arm d/t DVTs , v-tach, pituitary microadenoma. patent foramen ovale, narcolepsy, gastropareis, IDDM type II, falls, orthostatic hypotension/syncope, migraines with hemiplegia, pernicious anemia, polycystic ovarian syndrome, neuropathy bilateral legs/feet - mild, uti's. History of Any Multi-Drug Resistant Organisms: ESBL, MRSA Date of last positivie culture/infection: 03/09/17 MRSA/ 05/17/18 ESBL MDRO Source:: MRSA LEFT ARM,/ESBL URINE ECOLI Past Surgical History: Uterine Ablation Additional Past Surgical History / Comment(s): colonscopy/egd, angie, PORT-A -CATH INSERTION 04-28-18 Past Anesthesia/Blood Transfusion Reactions: No Reported Reaction Additional Past Anesthesia/Blood Transfusion Reaction / Comment(s): patient states "It takes a lot of anesthesia for my body to react". Pt has received blood in past without reaction. Past Psychological History: Bipolar, Depression Smoking Status: Never smoker Past Alcohol Use History: None Reported Past Drug Use History: None Reported - Past Family History Brother(s) Family Medical History: Diabetes Mellitus, Hyperlipidemia, Hypertension Additional Family Medical History / Comment(s): Patient states she has 1 brother with no major medical problems. Father Family Medical History: Diabetes Mellitus, Hyperlipidemia, Hypertension Additional Family Medical History / Comment(s): DAD IS 70 YEARS OLD. Patient states she does not have any contact with her father and does not know his medical history. Mother Family Medical History: CVA/TIA, Deep Vein Thrombosis (DVT) Additional Family Medical History / Comment(s): antiphospholipid antibody syndrome Medications and Allergies Home Medications Medication Instructions Recorded Confirmed Type tiZANidine [Zanaflex] 4 mg PO BID@0900,1500 12/04/18 11/30/19 History Levothyroxine Sodium [Synthroid] 100 mcg PO DAILY 01/16/19 11/30/19 History Cyanocobalamin (Vitamin B-12) 2,000 mcg PO DAILY 01/22/19 11/30/19 History [Vitamin B-12] Levothyroxine Sodium [Synthroid] 125 mcg PO DAILY 01/22/19 11/30/19 History Meloxicam [Mobic] 15 mg PO DAILY 03/01/19 11/30/19 History Modafinil [Provigil] 200 mg PO DAILY tab 03/07/19 11/30/19 Rx traMADol HCL [Ultram] 50 mg PO BID PRN 06/28/19 11/30/19 History Methenamine Hippurate 1 gm PO BID 07/12/19 11/30/19 History Dexlansoprazole [Dexilant] 60 mg PO DAILY 10/08/19 11/30/19 History Ergocalciferol [Vitamin D2 50,000 unit PO TAYLOR 10/08/19 11/30/19 History (DRISDOL)] Fluticasone Nasal [place] [Flonase 1 spray EA NOSTRIL HS 10/08/19 11/30/19 History Nasal [place]] Insulin Aspart [NovoLOG Flexpen] See Protocol SQ ACHS 10/08/19 11/30/19 History Insulin Glargine,Hum.rec.anlog 54 unit SQ HS 10/08/19 11/30/19 History [Lantus Solostar] Mirabegron [Myrbetriq] 25 mg PO DAILY 10/08/19 11/30/19 History Fenofibrate [Lofibra] 160 mg PO HS tab 10/17/19 11/30/19 Rx Gabapentin [Neurontin] 400 mg PO TID cap 10/17/19 11/30/19 Rx Metoclopramide [Reglan] 10 mg PO ACHS tab 10/17/19 11/30/19 Rx Metoprolol Succinate (ER) [Toprol 50 mg PO DAILY tab.er.24h 10/17/19 11/30/19 Rx XL] Ondansetron [Zofran] 8 mg PO Q6H PRN tab 10/17/19 11/30/19 Rx Rivaroxaban [Xarelto] 20 mg PO HS tab 10/17/19 11/30/19 Rx Trimethoprim [Trimpex] 100 mg PO HS tab 10/17/19 11/30/19 Rx busPIRone HCL [Buspar] 30 mg PO BID 28 Days tab 10/17/19 11/30/19 Rx cloNIDine HCL [Catapres] 0.1 mg PO HS tab 10/17/19 11/30/19 Rx tiZANidine [Zanaflex] 8 mg PO HS tab 10/17/19 11/30/19 Rx traZODone HCL [Desyrel] 200 mg PO HS #28 tab 10/17/19 11/30/19 Rx Acetaminophen Tab [Tylenol Tab] 650 mg PO Q6H PRN 11/29/19 11/30/19 History [place] Carbonate 600 mg PO HS 11/29/19 11/30/19 History Prochlorperazine Suppository 25 mg RECTAL Q8H PRN 11/29/19 11/30/19 History [Compazine] Topiramate [Topamax] 50 mg PO DAILY 11/29/19 11/30/19 History Promethazine [Phenergan] 25 mg PO Q6H PRN 11/30/19 11/30/19 History Allergies Allergy/AdvReac Type Severity Reaction Status Date / Time barium sulfate Allergy Anaphylaxis Verified 11/29/19 23:55 doxepin [Doxepin] Allergy Anaphylaxis Verified 11/29/19 23:55 ephedrine Allergy Unknown Verified 11/29/19 23:55 ertapenem [From Invanz] Allergy Rash/Hives Verified 11/29/19 23:55 influenza virus vaccine, Allergy severe Verified 11/29/19 23:55 specific swelling [Influenza Virus and hives Vacc,Specific] peanut oil AdvReac Severe Nausea & Verified 11/29/19 23:55 Vomiting,itching doxycycline AdvReac Nausea & Verified 11/29/19 23:55 Vomiting & Diarrhea peanut AdvReac Nausea & Verified 11/29/19 23:55 Vomiting Pertussis Vaccines AdvReac fever/seizu Verified 11/29/19 23:55 re pseudoephedrine AdvReac Chest Pain Verified 11/29/19 23:55 pseudoephedrine HCl AdvReac Chest Pain Verified 11/29/19 23:55 [From Sudafed] sulfamethoxazole AdvReac Nausea & Verified 11/29/19 23:55 [From Bactrim] Vomiting trimethoprim [From Bactrim] AdvReac Nausea & Verified 11/29/19 23:55 Vomiting Physical Exam Vitals: Vital Signs Temp Pulse Pulse Resp BP BP Pulse Ox 11/30/19 07:00 99 F 87 12 122/79 98 11/30/19 00:58 99.4 F 90 12 121/84 97 11/29/19 21:21 99.1 F 107 H 20 148/92 96 Intake and Output 11/29/19 11/30/19 11/30/19 22:59 06:59 14:59 Intake Total 540 340 Balance 540 340 Intake: Oral 540 340 Other: Voiding Method Toilet # Voids 1 Weight 106.594 kg 106.594 kg PHYSICAL EXAMINATION: GENERAL: The patient is alert and oriented x3, not in any acute distress. Well d eveloped, well nourished. HEENT: Pupils are round and equally reacting to light. EOMI. No scleral icterus. No conjunctival pallor. Normocephalic, atraumatic. No pharyngeal erythema. No thyromegaly. CARDIOVASCULAR: S1 and S2 present. No murmurs, rubs, or gallops. PULMONARY: Chest is clear to auscultation, no wheezing or crackles. ABDOMEN: Soft, nontender, nondistended, normoactive bowel sounds. No palpable organomegaly. MUSCULOSKELETAL: No joint swelling or deformity. EXTREMITIES: No cyanosis, clubbing, or pedal edema. NEUROLOGICAL: Gross neurological examination did not reveal any focal deficits. SKIN: No rashes. Results CBC & Chem 7: 11/30/19 13:17 Labs: Abnormal Lab Results - Last 24 Hours (Table) 11/29/19 11/29/19 11/30/19 Range/Units 21:48 21:58 07:35 WBC (3.8-10.6) k/uL Hgb (11.4-16.0) gm/dL Neutrophils # (1.3-7.7) k/uL POC Glucose (mg/dL) 138 H (75-99) mg/dL Plasma Lactic Acid Joce 2.3 H* (0.7-2.0) mmol/L Urine Bacteria Rare H (None) /hpf Urine Mucus Rare H (None) /hpf 11/30/19 11/30/19 Range/Units 11:49 13:17 WBC 11.4 H (3.8-10.6) k/uL Hgb 11.0 L (11.4-16.0) gm/dL Neutrophils # 7.9 H (1.3-7.7) k/uL POC Glucose (mg/dL) 174 H (75-99) mg/dL Plasma Lactic Acid Joce (0.7-2.0) mmol/L Urine Bacteria (None) /hpf Urine Mucus (None) /hpf Thrombosis Risk Factor Assmnt - Choose All That Apply Any of the Below Risk Factors Present?: No Each Risk Factor Represents 3 Points: Family history of DVT/PE, History of DVT/PE, Positive Lupus Anticoagulant Other congenital or acquired thrombophilia - If yes, enter type in comment: No Thrombosis Risk Factor Assessment Total Risk Factor Score: 9 Thrombosis Risk Factor Assessment Level: High Risk Assessment and Plan Assessment: 1. Sepsis possibly secondary to UTI; patient was started on IV Rocephin in ED; we will continue; blood cultures and urine cultures obtained and pending; we will consult ID for further recommendations on IV antibiotics and continue to monitor lactic acid and CRP levels 2. Diabetes mellitus type 2; continue with home dose of Lantus with Accu-Cheks every before meals and at bedtime 3. Hypothyroidism; resume home thyroid replacement therapy 4. TIA/CVA; aspirin daily 5. History of acute DVT; systemic anticoagulation 6. Neurogenic bladder DVT prophylaxis; systemic anticoagulation CODE STATUS; full code
[2019-11-30] MEDS: INSULIN ASPART (NovoLOG) 100 UNIT/ML VIAL SQ SCH ×2 (18:42→21:14)
[2019-11-30] MEDS: MYRBETRIQ 25 MG PO SCH (19:04)
[2019-11-30 21:04] LABS: Glucose,Whole Blood 191 mg/dL (75-99)
[2019-11-30] MEDS: busPIRone HCl 10 MG TAB PO SCH (21:13)
[2019-11-30] MEDS: FLUTICASONE 50MCG/SPRAY NASAL 16GM EA NOSTRIL SCH (21:13)
[2019-11-30] MEDS: cloNIDine HCL 0.1 MG TAB PO SCH (21:14)
[2019-11-30] MEDS: FENOFIBRATE 160 MG TAB PO SCH (21:14)
[2019-11-30] MEDS: INSULIN DETEMIR (LEVEMIR) 100 UNIT/ML SYR SQ SCH (21:15)
[2019-11-30] MEDS: LITHIUM CARBONATE 300 MG CAP PO SCH (21:15)
[2019-11-30] MEDS: RIVAROXABAN 20 MG TAB PO SCH (21:16)
[2019-11-30] MEDS: TRIMETHOPRIM 100 MG TAB PO SCH (21:16)
[2019-11-30] MEDS: traZODone HCL 100 MG TAB PO SCH (21:16)
[2019-11-30] MEDS: METHENAMINE HIPPURATE 1 GM TABLET PO SCH (21:16)
--- NOTE | 2019-11-30 23:35 | CONS ---
CONSULTATION DATE OF SERVICE: 11/30/2019 REASON FOR CONSULTATION: Sepsis of unclear source. HISTORY OF PRESENT ILLNESS: The patient is a 39 -year-old female, past medical history significant for and history of recurrent urinary tract infection. The patient presented to the [facility] ER last night with chief complaints of generalized malaise and weakness and dysuria. Apparently the patient did have white count done in the outpatient setting. She was noticed to have a white count of 17,000 with concern for urinary tract infection. The patient presented to the hospital. The patient has been complaining of running a low-grade fever. Did have some chills but did not record a temperature. On arrival to the ER, the patient did have fever of 99.4, white count was 11.4. UA was not significantly positive. Chest x-ray was negative. The patient has been admitted to the hospital. She was started on Rocephin. Infectious disease was consulted for further recommendation regarding antibiotic therapy. The patient denies having any URI symptoms. She did have minimal chest pain. Occasional cough. But no sputum production. The patient did mention and has frequency all the time. Denies significant suprapubic or flank pain. She has been complaining of diarrhea. Apparently has about 4 loose stools today and some mucus but no blood. REVIEW OF SYSTEMS: Positive points have been mentioned in HPI. Rest of systems negative. PAST MEDICAL HISTORY: Diabetes mellitus, DVT . Syncope, hypothyroidism, chest pain, history of recurrent UTI. PAST SURGICAL HISTORY: Uterine ablation, colonoscopy, EGD, Port-A-Cath insertion. SOCIAL HISTORY: No history of smoking, drinking or drug use. FAMILY HISTORY: Brother with diabetes and hypertension. Father with history of diabetes, hypertension. Mother history of CVA and deep venous thrombosis. ALLERGIES: To multiple medication as on the chart. PHYSICAL EXAMINATION: On examination, her blood pressure is 162/77 with a pulse of 68, temperature 98.4. She is 100% on room air. General description is an elderly female lying in bed in no distress. Respiratory system: Unlabored breathing. Clear to auscultation anteriorly. Heart S1, S2. Regular rate and rhythm. ABDOMEN: Soft, no tenderness. No guarding or rigidity. Extremities are no edema of the feet. SKIN examination: No rash or mass palpable. NEUROLOGICAL: Patient is awake, alert, oriented x3. Mood and affect normal. LABS: Hemoglobin is 11 with white count 11.4, and lactic acid was 1.6. UA, rare bacteria. No significant pyuria. Influenza serology was negative. Chest x-ray negative. DIAGNOSTIC IMPRESSION AND PLAN: Patient presented to hospital with fever and chills elevated white count in outpatient setting in this patient who does have a history of recurrent urinary tract infection. However, the UA has not been significantly positive. The patient currently with no other clinical focus of infection. Abdomen was soft on palpation. No evidence of any cellulitis. The [employer] site looks clean. Chest x-ray negative. However, the patient does give a history of diarrhea with question of possible viral gastroenteritis versus infectious colitis and C diff needs to be ruled out. PLAN: 1. We will check a stool for C diff and stool culture. 2. May continue antibiotic Zosyn while waiting for the culture to finalize. 3. We will follow up on clinical condition and further adjust medication if needed. Thank you for this consultation. We will follow this patient along with you. MMODL / IJN: [id number] /
[2019-12-01] MEDS: SODIUM CHLORIDE 0.9% 1,000 ML IV SCH ×3 (05:40→20:37)
[2019-12-01] MEDS: LEVOTHYROXINE 125 MCG TAB PO SCH (05:48)
[2019-12-01] MEDS: LEVOTHYROXINE 100 MCG TAB PO SCH (05:48)
[2019-12-01 06:36] LABS: Basophils # (A) 0.1 k/uL (0-0.2); Basophils % (A) 1 %; Eosinophils # (A) 0.3 k/uL (0-0.7); Eosinophils % (A) 3 %; HGB 10.8 gm/dL (11.4-16.0); Hypochromasia Moderate; Lymphocytes # (A) 2.3 k/uL (1.0-4.8); Lymphocytes % (A) 24 %; MCH 27.4 pg (25.0-35.0); MCHC 31.8 g/dL (31.0-37.0); MCV 86.2 fL (80.0-100.0); Mean Platelet Volume 7.2; Monocytes # (A) 0.6 k/uL (0-1.0); Monocytes % (A) 6 %; Neutrophils # (A) 6.2 k/uL (1.3-7.7); Neutrophils % (A) 65 %; Platelet Count 370 k/uL (150-450); RBC 3.95 m/uL (3.80-5.40); RDW 13.7 % (11.5-15.5); WBC 9.5 k/uL (3.8-10.6)
[2019-12-01 07:06] LABS: African American GFR (CKD) >90 (>60 ml/min/1.73 sqM); Anion Gap 8 mmol/L; Blood Urea Nitrogen 13 mg/dL (7-17); Calcium 9.4 mg/dL (8.4-10.2); Carbon Dioxide 24 mmol/L (22-30); Chloride 110 mmol/L (98-107); Glucose 124 mg/dL (74-99); Non-African American GFR(CKD) >90 (>60 ml/min/1.73 sqM); Potassium 4.3 mmol/L (3.5-5.1); Sodium 142 mmol/L (137-145)
[2019-12-01 07:15] LABS: Glucose,Whole Blood 110 mg/dL (75-99)
[2019-12-01] MEDS: INSULIN ASPART (NovoLOG) 100 UNIT/ML VIAL SQ SCH ×4 (07:39→20:59)
[2019-12-01] MEDS: busPIRone HCl 10 MG TAB PO SCH ×2 (08:05→20:38)
[2019-12-01] MEDS: PANTOPRAZOLE 40 MG TABLET PO SCH (08:05)
[2019-12-01] MEDS: GABAPENTIN 400 MG CAP PO SCH ×3 (08:05→21:00)
[2019-12-01] MEDS: CYANOCOBALAMIN 500 MCG TAB PO SCH (08:05)
[2019-12-01] MEDS: MODAFINIL 200 MG TAB PO SCH (08:05)
[2019-12-01] MEDS: MELOXICAM 7.5 MG TAB PO SCH (08:05)
[2019-12-01] MEDS: LORATADINE 10 MG TAB PO SCH (08:06)
[2019-12-01] MEDS: METOPROLOL SUCCINATE (ER) 50 MG TAB.ER.24H PO SCH (08:06)
[2019-12-01] MEDS: TOPIRAMATE 25 MG TAB PO SCH (08:06)
[2019-12-01] MEDS: METOCLOPRAMIDE 10 MG TAB PO SCH ×4 (08:06→20:40)
[2019-12-01] MEDS: tiZANidine 4 MG TAB PO SCH ×3 (08:07→20:40)
[2019-12-01] MEDS: METHENAMINE HIPPURATE 1 GM TABLET PO SCH ×2 (08:08→20:39)
[2019-12-01] MEDS: MYRBETRIQ 25 MG PO SCH (08:08)
[2019-12-01] MEDS: traMADol 50 MG TAB PO PRN (08:12)
[2019-12-01 11:47] LABS: Glucose,Whole Blood 127 mg/dL (75-99)
[2019-12-01] MEDS: ONDANSETRON 4 MG TAB PO PRN (13:07)
[2019-12-01 14:17] LABS: Hemoglobin A1C 8.2 % (4.0-6.0)
--- NOTE | 2019-12-01 16:43 | P.PN ---
Subjective Progress Note Date: 12/01/19 Principal diagnosis: Sepsis 39-year-old female patient with history of recurrent UTIs admitted to the hospital for possible sepsis with unclear source patient has been started on IV antibiotics and ID is following 12/01/2019 Patient is seen and evaluated in room at bedside; denies any specific complaints Vital signs are reviewed and remained stable; white blood count has trended down to normal limit Patient's IV antibiotics are escalated to IV Zosyn per ID recommendations; no clear source of infection is identified; patient does complain of diarrhea and stool has been sent for C. diff toxin Objective - Vital Signs Vital signs: Vital Signs Temp 99.3 F 12/01/19 07:00 Pulse 87 12/01/19 07:00 Resp 14 12/01/19 07:00 BP 117/74 12/01/19 07:00 Pulse Ox 98 12/01/19 07:00 Intake & Output 11/30/19 12/01/19 12/01/19 18:59 06:59 18:59 Intake Total 636 230 Balance 636 230 Weight 106.594 kg Intake: Oral 636 230 Other: Voiding Method Toilet Toilet # Voids 1 1 - Exam PHYSICAL EXAMINATION: GENERAL: The patient is alert and oriented x3, not in any acute distress. Well developed, well nourished. HEENT: Pupils are round and equally reacting to light. EOMI. No scleral icterus. No conjunctival pallor. Normocephalic, atraumatic. No pharyngeal erythema. No thyromegaly. CARDIOVASCULAR: S1 and S2 present. No murmurs, rubs, or gallops. PULMONARY: Chest is clear to auscultation, no wheezing or crackles. ABDOMEN: Soft, nontender, nondistended, normoactive bowel sounds. No palpable organomegaly. MUSCULOSKELETAL: No joint swelling or deformity. EXTREMITIES: No cyanosis, clubbing, or pedal edema. NEUROLOGICAL: Gross neurological examination did not reveal any focal deficits. SKIN: No rashes. - Labs CBC & Chem 7: 12/01/19 06:14 12/01/19 06:14 Labs: Abnormal Lab Results - Last 24 Hours (Table) 11/30/19 11/30/19 11/30/19 Range/Units 13:17 17:01 20:52 WBC 11.4 H (3.8-10.6) k/uL Hgb 11.0 L (11.4-16.0) gm/dL Neutrophils # 7.9 H (1.3-7.7) k/uL Chloride (98-107) mmol/L Glucose (74-99) mg/dL POC Glucose (mg/dL) 124 H 191 H (75-99) mg/dL 12/01/19 12/01/19 12/01/19 Range/Units 06:14 06:14 07:04 WBC (3.8-10.6) k/uL Hgb 10.8 L (11.4-16.0) gm/dL Neutrophils # (1.3-7.7) k/uL Chloride 110 H (98-107) mmol/L Glucose 124 H (74-99) mg/dL POC Glucose (mg/dL) 110 H (75-99) mg/dL 12/01/19 Range/Units 11:45 WBC (3.8-10.6) k/uL Hgb (11.4-16.0) gm/dL Neutrophils # (1.3-7.7) k/uL Chloride (98-107) mmol/L Glucose (74-99) mg/dL POC Glucose (mg/dL) 127 H (75-99) mg/dL Microbiology - Last 24 Hours (Table) 11/29/19 21:58 Blood Culture - Preliminary Blood No Growth after 24 hours Assessment and Plan Assessment: 1. Sepsis possibly secondary to UTI; patient was started on IV Rocephin in ED; we will continue; blood cultures and urine cultures obtained and pending; we will consult ID for further recommendations on IV antibiotics and continue to monitor lactic acid and CRP levels 2. Diabetes mellitus type 2; continue with home dose of Lantus with Accu-Cheks every before meals and at bedtime 3. Hypothyroidism; resume home thyroid replacement therapy 4. TIA/CVA; aspirin daily 5. History of acute DVT; systemic anticoagulation 6. Neurogenic bladder DVT prophylaxis; systemic anticoagulation CODE STATUS; full code
[2019-12-01 16:55] LABS: Glucose,Whole Blood 148 mg/dL (75-99)
--- NOTE | 2019-12-01 19:03 | PN ---
PROGRESS NOTE DATE OF SERVICE: 12/01/2019. REASON FOR FOLLOWUP: Fever, question of UTI. INTERVAL HISTORY: The patient is currently afebrile. The patient has been overall feeling better, breathing comfortably. The patient denies having any chest pain, shortness of breath or cough. No abdominal pain. The patient's diarrhea has resolved. PHYSICAL EXAMINATION: Blood pressure 125/83 with a pulse of 74, temperature of 98.6. She is 97% on room air. General description is a middle-aged female lying in bed in no distress. RESPIRATORY SYSTEM: Unlabored breathing. Clear to auscultation anteriorly. HEART: S1, S2. Regular rate and rhythm. ABDOMEN: Soft. No tenderness. LABS: Hemoglobin is 10.8, white count 9.5. BUN of 13, creatinine 0.70. DIAGNOSTIC IMPRESSION AND PLAN: Patient admitted to hospital with a fever with concern for a urinary tract infection in this patient who does have a history of recurrent urinary tract infection. She also complained of some diarrhea, though subsequently results were not obtained. The patient clinically responded to Rocephin; to continue while waiting for the culture to finalize. Continue with supportive care. MMODL / IJN: [id number] /
[2019-12-01 20:33] LABS: Glucose,Whole Blood 222 mg/dL (75-99)
[2019-12-01] MEDS: FENOFIBRATE 160 MG TAB PO SCH (20:38)
[2019-12-01] MEDS: cloNIDine HCL 0.1 MG TAB PO SCH (20:38)
[2019-12-01] MEDS: FLUTICASONE 50MCG/SPRAY NASAL 16GM EA NOSTRIL SCH (20:39)
[2019-12-01] MEDS: LITHIUM CARBONATE 300 MG CAP PO SCH (20:39)
[2019-12-01] MEDS: RIVAROXABAN 20 MG TAB PO SCH (20:40)
[2019-12-01] MEDS: traZODone HCL 100 MG TAB PO SCH (20:41)
[2019-12-01] MEDS: TRIMETHOPRIM 100 MG TAB PO SCH (20:41)
[2019-12-01] MEDS: INSULIN DETEMIR (LEVEMIR) 100 UNIT/ML SYR SQ SCH (20:59)
[2019-12-02] MEDS: SODIUM CHLORIDE 0.9% 1,000 ML IV SCH ×4 (06:05→22:15)
[2019-12-02] MEDS: LEVOTHYROXINE 125 MCG TAB PO SCH (06:05)
[2019-12-02] MEDS: LEVOTHYROXINE 100 MCG TAB PO SCH (06:05)
[2019-12-02 06:46] LABS: Glucose,Whole Blood 103 mg/dL (75-99)
[2019-12-02 07:18] LABS: African American GFR (CKD) >90 (>60 ml/min/1.73 sqM); Anion Gap 10 mmol/L; Blood Urea Nitrogen 14 mg/dL (7-17); Calcium 9.1 mg/dL (8.4-10.2); Carbon Dioxide 19 mmol/L (22-30); Chloride 112 mmol/L (98-107); Glucose 98 mg/dL (74-99); Non-African American GFR(CKD) >90 (>60 ml/min/1.73 sqM); Potassium 4.4 mmol/L (3.5-5.1); Sodium 141 mmol/L (137-145)
[2019-12-02 07:34] LABS: Basophils # (A) 0.1 k/uL (0-0.2); Basophils % (A) 1 %; Eosinophils # (A) 0.3 k/uL (0-0.7); Eosinophils % (A) 4 %; HCT 33.6 % (34.0-46.0); HGB 10.5 gm/dL (11.4-16.0); Hypochromasia Slight; Lymphocytes % (A) 23 %; MCH 26.8 pg (25.0-35.0); MCHC 31.2 g/dL (31.0-37.0); MCV 85.9 fL (80.0-100.0); Mean Platelet Volume 7.7; Monocytes # (A) 0.6 k/uL (0-1.0); Monocytes % (A) 7 %; Neutrophils # (A) 5.5 k/uL (1.3-7.7); Neutrophils % (A) 65 %; Platelet Count 331 k/uL (150-450); RBC 3.91 m/uL (3.80-5.40); RDW 14.1 % (11.5-15.5); WBC 8.5 k/uL (3.8-10.6)
[2019-12-02] MEDS: MELOXICAM 7.5 MG TAB PO SCH (07:56)
[2019-12-02] MEDS: GABAPENTIN 400 MG CAP PO SCH ×3 (07:57→22:00)
[2019-12-02] MEDS: busPIRone HCl 10 MG TAB PO SCH ×2 (07:57→21:56)
[2019-12-02] MEDS: CYANOCOBALAMIN 500 MCG TAB PO SCH (07:57)
[2019-12-02] MEDS: LORATADINE 10 MG TAB PO SCH (07:57)
[2019-12-02] MEDS: MODAFINIL 200 MG TAB PO SCH (07:58)
[2019-12-02] MEDS: METOCLOPRAMIDE 10 MG TAB PO SCH ×4 (07:58→22:24)
[2019-12-02] MEDS: PANTOPRAZOLE 40 MG TABLET PO SCH (07:58)
[2019-12-02] MEDS: METOPROLOL SUCCINATE (ER) 50 MG TAB.ER.24H PO SCH (07:58)
[2019-12-02] MEDS: MYRBETRIQ 25 MG PO SCH (07:59)
[2019-12-02] MEDS: METHENAMINE HIPPURATE 1 GM TABLET PO SCH ×2 (08:00→21:59)
[2019-12-02] MEDS: tiZANidine 4 MG TAB PO SCH ×3 (08:00→22:24)
[2019-12-02] MEDS: TOPIRAMATE 25 MG TAB PO SCH (08:01)
[2019-12-02] MEDS: INSULIN ASPART (NovoLOG) 100 UNIT/ML VIAL SQ SCH ×4 (08:02→21:58)
[2019-12-02] MEDS ORDERED: ERGOCALCIFEROL 50,000 UNIT CAP PO SCH (09:00)
[2019-12-02] MEDS: traMADol 50 MG TAB PO PRN (10:09)
[2019-12-02 12:12] LABS: Glucose,Whole Blood 113 mg/dL (75-99)
[2019-12-02] MEDS: ONDANSETRON 4 MG TAB PO PRN (12:59)
[2019-12-02] MEDS: ACETAMINOPHEN TAB 325 MG TAB PO PRN (14:26)
--- NOTE | 2019-12-02 15:52 | P.PN ---
Subjective Progress Note Date: 12/02/19 Principal diagnosis: Sepsis 39-year-old female patient with history of recurrent UTIs admitted to the hospital for possible sepsis with unclear source patient has been started on IV antibiotics and ID is following 12/01/2019 Patient is seen and evaluated in room at bedside; denies any specific complaints Vital signs are reviewed and remained stable; white blood count has trended down to normal limit Patient's IV antibiotics are escalated to IV Zosyn per ID recommendations; no clear source of infection is identified; patient does complain of diarrhea and stool has been sent for C. diff toxin 12/02/2019 Patient is seen and evaluated in follow-up; complains of new onset right upper quadrant pain which flares up with meals; associated with nausea; no vomiting Vital signs are reviewed and patient remains afebrile; patient is morbidly obese and is tender in right upper quadrant area; we will order abdominal ultrasound to rule out cholecystitis along with liver function test workup for sepsis has been negative thus far; C. diff toxin could not be checked due to resolution of diarrhea; patient remains on IV Zosyn; await recommendations from ID in regards to antibiotic therapy Objective - Vital Signs Vital signs: Vital Signs Temp 98.4 F 12/02/19 07:40 Pulse 72 12/02/19 07:40 Resp 16 12/02/19 07:40 BP 113/72 12/02/19 07:40 Pulse Ox 97 12/02/19 07:40 Intake & Output 12/01/19 12/02/19 12/02/19 18:59 06:59 18:59 Intake Total 1600 Balance 1600 Intake: Intake, IV Titration 1600 Amount Sodium Chloride 0.9% 1, 1500 000 ml @ 150 mls/hr IV . Q6H40M JOSE Rx#:[id number] cefTRIAXone 1 gm In 100 Sodium Chloride 0.9% 50 ml @ 100 mls/hr IVPB HS JOSE Rx#:[id number] Other: Voiding Method Toilet Toilet Toilet # Voids 2 1 - Exam PHYSICAL EXAMINATION: GENERAL: The patient is alert and oriented x3, not in any acute distress. Well developed, well nourished. HEENT: Pupils are round and equally reacting to light. EOMI. No scleral icterus. No conjunctival pallor. Normocephalic, atraumatic. No pharyngeal erythema. No thyromegaly. CARDIOVASCULAR: S1 and S2 present. No murmurs, rubs, or gallops. PULMONARY: Chest is clear to auscultation, no wheezing or crackles. ABDOMEN: Soft, nontender, nondistended, normoactive bowel sounds. No palpable organomegaly. MUSCULOSKELETAL: No joint swelling or deformity. EXTREMITIES: No cyanosis, clubbing, or pedal edema. NEUROLOGICAL: Gross neurological examination did not reveal any focal deficits. SKIN: No rashes. - Labs CBC & Chem 7: 12/02/19 06:38 12/02/19 06:38 Labs: Abnormal Lab Results - Last 24 Hours (Table) 12/01/19 12/01/19 12/01/19 Range/Units 06:14 11:45 16:54 Hgb (11.4-16.0) gm/dL Hct (34.0-46.0) % Chloride (98-107) mmol/L Carbon Dioxide (22-30) mmol/L POC Glucose (mg/dL) 127 H 148 H (75-99) mg/dL Hemoglobin A1c 8.2 H (4.0-6.0) % 12/01/19 12/02/19 12/02/19 Range/Units 20:21 06:38 06:38 Hgb 10.5 L (11.4-16.0) gm/dL Hct 33.6 L (34.0-46.0) % Chloride 112 H (98-107) mmol/L Carbon Dioxide 19 L (22-30) mmol/L POC Glucose (mg/dL) 222 H (75-99) mg/dL Hemoglobin A1c (4.0-6.0) % 12/02/19 Range/Units 06:43 Hgb (11.4-16.0) gm/dL Hct (34.0-46.0) % Chloride (98-107) mmol/L Carbon Dioxide (22-30) mmol/L POC Glucose (mg/dL) 103 H (75-99) mg/dL Hemoglobin A1c (4.0-6.0) % Microbiology - Last 24 Hours (Table) 11/29/19 21:58 Blood Culture - Preliminary Blood No Growth after 48 hours Assessment and Plan Assessment: 1. Sepsis possibly secondary to UTI; patient was started on IV Rocephin in ED; we will continue; blood cultures and urine cultures obtained and pending; we will consult ID for further recommendations on IV antibiotics and continue to monitor lactic acid and CRP levels 2. Diabetes mellitus type 2; continue with home dose of Lantus with Accu-Cheks every before meals and at bedtime 3. Hypothyroidism; resume home thyroid replacement therapy 4. TIA/CVA; aspirin daily 5. History of acute DVT; systemic anticoagulation 6. Neurogenic bladder DVT prophylaxis; systemic anticoagulation CODE STATUS; full code
[2019-12-02] MEDS: MORPHINE SULFATE 2 MG/ML SYRINGE IVP PRN ×2 (16:18→22:11)
[2019-12-02 17:08] LABS: Albumin 3.3 g/dL (3.5-5.0); Bilirubin, Delta 0.3 mg/dL (0.0-0.2); Bilirubin,Unconjugated 0.1 mg/dL (0.0-1.1); Total Bilirubin 0.4 mg/dL (0.2-1.3)
[2019-12-02 17:37] LABS: Glucose,Whole Blood 107 mg/dL (75-99)
[2019-12-02 20:17] LABS: Glucose,Whole Blood 164 mg/dL (75-99)
--- NOTE | 2019-12-02 20:45 | PN ---
PROGRESS NOTE DATE OF SERVICE: 12/02/2019 REASON FOR FOLLOWUP: Fever and question of UTI. INTERVAL HISTORY: The patient is currently afebrile. Patient has been breathing comfortably. Denies having any chest pain. No shortness of breath or cough. No nausea, vomiting, abdominal pain. No diarrhea. PHYSICAL EXAMINATION: Blood pressure 129/80 with a pulse of 80, temperature 98.9. She is 96% on room air. General description is a middle-aged female lying in bed in no distress. Respiratory system: Unlabored breathing. Clear to auscultation anteriorly. Heart S1, S2. Regular rate and rhythm. Abdomen soft, no tenderness. LABS: Hemoglobin is 10.5, white count 8.5. BUN of 14, creatinine 0.63. Blood culture has been negative. DIAGNOSTIC IMPRESSION AND PLAN: Patient admitted to the hospital with fever and urinary symptoms with concern for possible urinary tract infection. The patient culture so far negative. Did have overall improvement on the Rocephin which will be transitioned to a short course of oral Ceftin on discharge and we will monitor clinical course closely. MMODL / IJN: [id number] /
[2019-12-02] MEDS: cloNIDine HCL 0.1 MG TAB PO SCH (21:57)
[2019-12-02] MEDS: FLUTICASONE 50MCG/SPRAY NASAL 16GM EA NOSTRIL SCH (21:58)
[2019-12-02] MEDS: FENOFIBRATE 160 MG TAB PO SCH (21:58)
[2019-12-02] MEDS: LITHIUM CARBONATE 300 MG CAP PO SCH (21:59)
[2019-12-02] MEDS: traZODone HCL 100 MG TAB PO SCH (22:00)
[2019-12-02] MEDS: INSULIN DETEMIR (LEVEMIR) 100 UNIT/ML SYR SQ SCH (22:12)
[2019-12-02] MEDS: TRIMETHOPRIM 100 MG TAB PO SCH (22:24)
[2019-12-02] MEDS: RIVAROXABAN 20 MG TAB PO SCH (22:24)
[2019-12-03] MEDS: SODIUM CHLORIDE 0.9% 1,000 ML IV SCH ×3 (03:04→17:10)
[2019-12-03] MEDS: LEVOTHYROXINE 100 MCG TAB PO SCH (05:29)
[2019-12-03] MEDS: LEVOTHYROXINE 125 MCG TAB PO SCH (05:29)
[2019-12-03 07:05] LABS: Glucose,Whole Blood 114 mg/dL (75-99)
--- NOTE | 2019-12-03 07:55 | US ---
EXAMINATION TYPE: US abdomen complete DATE OF EXAM: 12/03/2019 COMPARISON: NONE CLINICAL HISTORY: abdominal pain. Pain EXAM MEASUREMENTS: Liver Length: 18.9 cm Gallbladder Wall: .2 cm CBD: .4 cm Spleen: 13.2 cm Right Kidney: 10.7 x 4.2 x 4.4 cm Left Kidney: 12.6 x 5.6 x 5.4 cm Pancreas: wnl Liver: Upper limits of normal size. There is increased echogenicity of the hepatic parenchyma with di minished visualization of the portal triads most commonly relating to hepatic steatosis and limiting evaluation for underlying hepatic masses. Gallbladder: wnl Evidence for sonographic Harris's sign: No CBD: wnl Spleen: upper limits Right Kidney: wnl Left Kidney: Cystic area lower pole 1.1 x .9 x 1.6 cm. Upper IVC: wnl Abd Aorta: wnl The liver is inhomogenous. The intrahepatic portion of the IVC and proximal abdominal aorta are with in normal limits. There is no evidence of cholelithiasis. Common bile duct is unremarkable. The vi sualized portions of the pancreas are homogenous. The spleen is unremarkable. Kidneys are symmetric and free of hydronephrosis. IMPRESSION: 1. Sonographic findings most commonly related to hepatic steatosis. Correlate with liver function mk ts. 2. Upper limits of normal size of both the spleen and liver.
[2019-12-03 07:56] LABS: Basophils # (A) 0.1 k/uL (0-0.2); Basophils % (A) 1 %; Eosinophils # (A) 0.3 k/uL (0-0.7); Eosinophils % (A) 4 %; HCT 33.1 % (34.0-46.0); HGB 10.5 gm/dL (11.4-16.0); Hypochromasia Moderate; Lymphocytes # (A) 1.8 k/uL (1.0-4.8); Lymphocytes % (A) 23 %; MCH 27.5 pg (25.0-35.0); MCHC 31.8 g/dL (31.0-37.0); MCV 86.3 fL (80.0-100.0); Mean Platelet Volume 7.8; Monocytes # (A) 0.4 k/uL (0-1.0); Monocytes % (A) 5 %; Neutrophils % (A) 65 %; Platelet Count 347 k/uL (150-450); RBC 3.83 m/uL (3.80-5.40); RDW 13.8 % (11.5-15.5); WBC 7.6 k/uL (3.8-10.6)
[2019-12-03 08:11] LABS: African American GFR (CKD) >90 (>60 ml/min/1.73 sqM); Anion Gap 7 mmol/L; Blood Urea Nitrogen 13 mg/dL (7-17); Calcium 9.2 mg/dL (8.4-10.2); Carbon Dioxide 25 mmol/L (22-30); Chloride 110 mmol/L (98-107); Glucose 108 mg/dL (74-99); Non-African American GFR(CKD) >90 (>60 ml/min/1.73 sqM); Potassium 4.6 mmol/L (3.5-5.1); Sodium 142 mmol/L (137-145)
[2019-12-03] MEDS: INSULIN ASPART (NovoLOG) 100 UNIT/ML VIAL SQ SCH ×4 (09:26→20:43)
[2019-12-03] MEDS: METOCLOPRAMIDE 10 MG TAB PO SCH ×4 (09:27→20:47)
[2019-12-03] MEDS: CYANOCOBALAMIN 500 MCG TAB PO SCH (09:28)
[2019-12-03] MEDS: PANTOPRAZOLE 40 MG TABLET PO SCH (09:28)
[2019-12-03] MEDS: LORATADINE 10 MG TAB PO SCH (09:28)
[2019-12-03] MEDS: GABAPENTIN 400 MG CAP PO SCH ×3 (09:28→20:45)
[2019-12-03] MEDS: busPIRone HCl 10 MG TAB PO SCH ×2 (09:28→20:43)
[2019-12-03] MEDS: MELOXICAM 7.5 MG TAB PO SCH (09:28)
[2019-12-03] MEDS: METHENAMINE HIPPURATE 1 GM TABLET PO SCH ×2 (09:29→20:44)
[2019-12-03] MEDS: MODAFINIL 200 MG TAB PO SCH (09:30)
[2019-12-03] MEDS: METOPROLOL SUCCINATE (ER) 50 MG TAB.ER.24H PO SCH (09:30)
[2019-12-03] MEDS: MYRBETRIQ 25 MG PO SCH (09:30)
[2019-12-03] MEDS: tiZANidine 4 MG TAB PO SCH ×3 (09:31→21:37)
[2019-12-03] MEDS: TOPIRAMATE 25 MG TAB PO SCH (09:31)
--- NOTE | 2019-12-03 10:19 | P.PN ---
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 Presents because she was feeling exhausted, malaise and fevers and blood tests show an increased WBC of 17 K as per patient and documents. Patient her symptoms are significantly improved, she does not feel weak or exhausted and that's improved, her white cell count has been coming down to normal after she was placed on antibiotics with Rocephin, also she is on IV fluids. Patient has been evaluated by ID team and blood culture show no gross so far. No urine culture. Urine analysis was suspicious for infection. However patient hemoglobin A1c is 8.2 percent, she is on Levemir 54 units at home, however going to change that to Levemir 40 units at bedtime and 5 units with mealsand patient agrees However patient over the last 4-5 days she's been having right upper quadrant pain radiating, although is the silver this morning about 4/10 compared to 7/10 in severity. She has chronic nausea with no recent worsening. She has regular bowel movements.abdominal ultrasound showing possible hepatic steatosis. I will call GI and surgery consult GENERAL: The patient is alert and oriented x3, not in any acute distress. Well developed, well nourished. HEENT: Pupils are round and equally reacting to light. EOMI. No scleral icterus. No conjunctival pallor. Normocephalic, atraumatic. No pharyngeal erythema. No thyromegaly. CARDIOVASCULAR: S1 and S2 present. No murmurs, rubs, or gallops. PULMONARY: Chest is clear to auscultation, no wheezing or crackles. ABDOMEN: Soft, normoactive bowel sounds. No palpable organomegaly. MUSCULOSKELETAL: No joint swelling or deformity. EXTREMITIES: No cyanosis, clubbing, or pedal edema. NEUROLOGICAL: Gross neurological examination did not reveal any focal deficits. SKIN: No rashes. No petechiae Active Medications Generic Name Dose Route Start Last Admin Trade Name Freq PRN Reason Stop Dose Admin Acetaminophen 650 mg 11/30/19 10:38 12/02/19 14:26 Tylenol Tab PO 650 mg Q6H PRN Administration Fever and/ or MILD Pain Buspirone HCl 30 mg 11/30/19 21:00 12/03/19 09:28 Buspar PO 30 mg BID JOSE Administration Clonidine 0.1 mg 11/30/19 21:00 12/02/19 21:57 Catapres PO 0.1 mg HS JOSE Administration Cyanocobalamin 2,000 mcg 11/30/19 10:45 12/03/19 09:28 Vitamin B-12 PO 2,000 mcg DAILY JOSE Administration Ergocalciferol 50,000 unit 12/02/19 09:00 12/02/19 07:59 Vitamin D2 PO 50,000 unit TAYLOR JOSE Administration Fenofibrate 160 mg 11/30/19 21:00 12/02/19 21:58 Lofibra PO 160 mg HS JOSE Administration Fluticasone Propionate 1 spray 11/30/19 21:00 12/02/19 21:58 Flonase Nasal [place] EA NOSTRIL 1 spray HS JOSE Administration Gabapentin 400 mg 11/30/19 10:45 12/03/19 09:28 Neurontin PO 400 mg TID JOSE Administration Sodium Chloride 1,000 mls @ 150 mls/hr 11/29/19 22:15 12/03/19 03:04 Saline 0.9% IV 150 mls/hr .Q6H40M JOSE Administration Ceftriaxone Sodium 1 gm/ 50 mls @ 100 mls/hr 11/30/19 21:00 12/02/19 21:57 Sodium Chloride IVPB 100 mls/hr HS JOSE Administration Insulin Aspart 0 unit 11/30/19 17:30 12/03/19 09:26 Novolog SQ Not Given [facility] Protocol Insulin Detemir 54 unit 11/30/19 21:00 12/02/19 22:12 Levemir SQ 54 unit HS [facility] Administration Levothyroxine Sodium 100 mcg 11/30/19 11:30 12/03/19 05:29 Synthroid PO 100 mcg DAILY@0630 JOSE Administration Levothyroxine Sodium 125 mcg 11/30/19 11:30 12/03/19 05:29 Synthroid PO 125 mcg DAILY@0630 JOSE Administration [place] Carbonate 600 mg 11/30/19 21:00 12/02/19 21:59 [place] Carbonate PO 600 mg HS JOSE Administration Loratadine 10 mg 11/30/19 11:30 12/03/19 09:28 Claritin PO 10 mg DAILY JOSE Administration Meloxicam 15 mg 12/01/19 09:00 12/03/19 09:28 Mobic PO 15 mg DAILY JOSE Administration Metoclopramide HCl 10 mg 11/30/19 12:30 12/03/19 09:27 Reglan PO 10 mg ACHS JOSE Administration Metoprolol Succinate 50 mg 11/30/19 10:45 12/03/19 09:30 Toprol Xl PO 50 mg DAILY JOSE Administration Modafinil 200 mg 11/30/19 10:45 12/03/19 09:30 Provigil PO 200 mg DAILY JOSE Administration Morphine Sulfate 2 mg 12/02/19 16:10 12/02/19 22:11 Morphine Sulfate (Inj) IVP 2 mg Q6H PRN Administration Pain/Discomfort Naloxone HCl 0.2 mg 11/29/19 23:07 Narcan IV Q2M PRN Opioid Reversal Myrbetriq ( 25 mg 11/30/19 17:00 12/03/19 09:30 Mirabegron) 25 Mg PO 25 mg Tablet DAILY JOSE Administration Methenamine 1 gm 11/30/19 21:00 12/03/19 09:29 Hippurate 1 Gm PO 1 gm Tablet BID JOSE Administration Ondansetron HCl 8 mg 11/30/19 10:38 12/02/19 12:59 Zofran PO 8 mg Q6H PRN Administration Nausea Pantoprazole Sodium 40 mg 11/30/19 10:45 12/03/19 09:28 Protonix PO 40 mg [id number] JOSE Administration Rivaroxaban 20 mg 11/30/19 21:00 12/02/19 22:24 Xarelto PO 20 mg HS JOSE Administration Tizanidine HCl 4 mg 11/30/19 15:00 12/03/19 09:31 Zanaflex PO 4 mg BID@0900,1500 JOSE Administration Tizanidine HCl 8 mg 11/30/19 22:00 12/02/19 22:24 Zanaflex PO 8 mg HS JOSE Administration Topiramate 50 mg 11/30/19 10:45 12/03/19 09:31 Topamax PO 50 mg DAILY JOSE Administration Tramadol HCl 50 mg 11/30/19 10:38 12/02/19 10:09 Ultram PO 50 mg BID PRN Administration Mild to Moderate Pain Trazodone HCl 200 mg 11/30/19 21:00 12/02/19 22:00 Desyrel PO 200 mg HS JOSE Administration Trimethoprim 100 mg 11/30/19 21:00 12/02/19 22:24 Trimpex PO 100 mg HS JOSE Administration Objective - Vital Signs Vital signs: Vital Signs Temp 98.7 F 12/03/19 08:11 Pulse 77 12/03/19 08:11 Resp 16 12/03/19 08:11 BP 120/76 12/03/19 08:11 Pulse Ox 98 12/03/19 08:11 Intake & Output 12/02/19 12/03/19 12/03/19 18:59 06:59 18:59 Intake Total 800 Balance 800 Intake: Intake, IV Titration 600 Amount Sodium Chloride 0.9% 1, 600 000 ml @ 150 mls/hr IV . Q6H40M JOSE Rx#:[id number] Oral 200 Other: Voiding Method Toilet Toilet # Voids 1 1 # Bowel Movements 1 - Exam GENERAL: The patient is alert and oriented x3, not in any acute distress. Well developed, well nourished. HEENT: Pupils are round and equally reacting to light. EOMI. No scleral icterus. No conjunctival pallor. Normocephalic, atraumatic. No pharyngeal erythema. No thyromegaly. CARDIOVASCULAR: S1 and S2 present. No murmurs, rubs, or gallops. PULMONARY: Chest is clear to auscultation, no wheezing or crackles. -ABDOMEN: Soft, RUQ tenderness with no rebound tenderness or guarding, nondistended, normoactive bowel sounds. No palpable organomegaly. MUSCULOSKELETAL: No joint swelling or deformity. EXTREMITIES: No cyanosis, clubbing, or pedal edema. NEUROLOGICAL: Gross neurological examination did not reveal any focal deficits. SKIN: No rashes. no petechiae. - Labs CBC & Chem 7: 12/03/19 06:57 12/03/19 06:57 Labs: Abnormal Lab Results - Last 24 Hours (Table) 12/02/19 12/02/19 12/02/19 Range/Units 06:38 12:10 17:35 Hgb (11.4-16.0) gm/dL Hct (34.0-46.0) % Chloride (98-107) mmol/L Glucose (74-99) mg/dL POC Glucose (mg/dL) 113 H 107 H (75-99) mg/dL Delta Bilirubin 0.3 H (0.0-0.2) mg/dL Total Protein 6.0 L (6.3-8.2) g/dL Albumin 3.3 L (3.5-5.0) g/dL 12/02/19 12/03/19 12/03/19 Range/Units 20:15 06:57 06:57 Hgb 10.5 L (11.4-16.0) gm/dL Hct 33.1 L (34.0-46.0) % Chloride 110 H (98-107) mmol/L Glucose 108 H (74-99) mg/dL POC Glucose (mg/dL) 164 H (75-99) mg/dL Delta Bilirubin (0.0-0.2) mg/dL Total Protein (6.3-8.2) g/dL Albumin (3.5-5.0) g/dL 12/03/19 Range/Units 07:03 Hgb (11.4-16.0) gm/dL Hct (34.0-46.0) % Chloride (98-107) mmol/L Glucose (74-99) mg/dL POC Glucose (mg/dL) 114 H (75-99) mg/dL Delta Bilirubin (0.0-0.2) mg/dL Total Protein (6.3-8.2) g/dL Albumin (3.5-5.0) g/dL Microbiology - Last 24 Hours (Table) 11/29/19 21:58 Blood Culture - Preliminary Blood No Growth after 72 hours Assessment and Plan Assessment: RUQ tenderness and pain Sepsis of unknown etiology, improving Insulin-dependent diabetes mellitus, with uncontrolled hemoglobin A1c of 8.2% 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 She follows up with Dr. Vickers Neurogenic bladder, multifactorial Chronic UTI on Bactrim Gastroparesis secondary to diabetes Obesity history of the venous thrombosis on Xarelto history of Emily disease history of Pituitary microadenoma history of Patent foramen ovale history of Narcolepsy history of Migraine history of Polycystic ovarian syndrome Plan: this is a pleasant cic[age] old female who presents with sepsis of unknown etiology and uncontrolled diabetes and RUQ tenderness. Continue with antibiotics as per ID team. Restart diet. Consult GI and surgery team for abdominal pain.change her insulin long-acting and with meals Labs and medication were reviewed.. Continue same treatment. Continue with symptomatic treatment. Resume home medication. Monitor lytes and vitals. DVT and GI prophylaxis. Further recommendations of the clinical course of the patient DVT prophylaxis: Xarelto GI Prophylaxis: Protonix Prognosis is guarded
[2019-12-03] MEDS: traMADol 50 MG TAB PO PRN ×2 (10:45→17:16)
[2019-12-03 11:59] LABS: Glucose,Whole Blood 163 mg/dL (75-99)
--- NOTE | 2019-12-03 13:29 | P.GSCN ---
History of Present Illness Consult date: 12/03/19 History of present illness: 39-year-old female is admitted to the hospital secondary to malaise and abnormal laboratory findings. She states that she does have a Mediport in place secondary to chronic urinary tract infections. She is on scheduled Bactrim at home secondary to her chronic urinary tract infections. She states that she has recently developed right upper quadrant abdominal pain. She states that the pain does worsen after meals. She states that she has been dealing with this for the past few weeks, however the pain has increased over the past few days. She denies any vomiting episodes but complains of occasional nausea. Ultrasound of the abdomen was performed with no evidence of cholelithiasis. She denies having any previous abdominal surgery. She denies any heartburn. She denies any fevers, chills, chest pain or shortness of breath at this time. Review of Systems All systems: negative Past Medical History Past Medical History: Chest Pain / Angina, CVA/TIA, Diabetes Mellitus, Deep Vein Thrombosis (DVT), Neurologic Disorder, Syncope, Thyroid Disorder Additional Past Medical History / Comment(s): STROKE LIKE EPISODE D/T MITOCHRO NDIAL DISEASE HAD WORK UP DONE AT [facility]. Dysautonomia-progressive neurological disorder, lupus/LUPUS ANTICOAGULANTS, ana maria's disease, lymphedema Lt arm d/t DVTs , v-tach, pituitary microadenoma. patent foramen ovale, narcolepsy, gastropareis, IDDM type II, falls, orthostatic hypotension/syncope, migraines with hemiplegia, pernicious anemia, polycystic ovarian syndrome, neuropathy bilateral legs/feet - mild, uti's. History of Any Multi-Drug Resistant Organisms: ESBL, MRSA Year Discovered:: 03/09/17 MRSA/ 05/17/18 ESBL MDRO Source:: MRSA LEFT ARM,/ESBL URINE ECOLI Past Surgical History: Uterine Ablation Additional Past Surgical History / Comment(s): colonscopy/egd, angie, PORT-A -CATH INSERTION 04-28-18 Past Anesthesia/Blood Transfusion Reactions: No Reported Reaction Additional Past Anesthesia/Blood Transfusion Reaction / Comm: patient states "It takes a lot of anesthesia for my body to react". Pt has received blood in past without reaction. Past Psychological History: Bipolar, Depression Smoking Status: Never smoker Past Alcohol Use History: None Reported Past Drug Use History: None Reported - Past Family History Brother(s) Family Medical History: Diabetes Mellitus, Hyperlipidemia, Hypertension Additional Family Medical History / Comment(s): Patient states she has 1 brother with no major medical problems. Father Family Medical History: Diabetes Mellitus, Hyperlipidemia, Hypertension Additional Family Medical History / Comment(s): DAD IS 70 YEARS OLD. Patient states she does not have any contact with her father and does not know his medical history. Mother Family Medical History: CVA/TIA, Deep Vein Thrombosis (DVT) Additional Family Medical History / Comment(s): antiphospholipid antibody syndrome Medications and Allergies Home Medications Medication Instructions Recorded Confirmed Type tiZANidine [Zanaflex] 4 mg PO BID@0900,1500 12/04/18 11/30/19 History Levothyroxine Sodium [Synthroid] 100 mcg PO DAILY 01/16/19 11/30/19 History Cyanocobalamin (Vitamin B-12) 2,000 mcg PO DAILY 01/22/19 11/30/19 History [Vitamin B-12] Levothyroxine Sodium [Synthroid] 125 mcg PO DAILY 01/22/19 11/30/19 History Meloxicam [Mobic] 15 mg PO DAILY 03/01/19 11/30/19 History Modafinil [Provigil] 200 mg PO DAILY tab 03/07/19 11/30/19 Rx traMADol HCL [Ultram] 50 mg PO BID PRN 06/28/19 11/30/19 History Methenamine Hippurate 1 gm PO BID 07/12/19 11/30/19 History Dexlansoprazole [Dexilant] 60 mg PO DAILY 10/08/19 11/30/19 History Ergocalciferol [Vitamin D2 50,000 unit PO TAYLOR 10/08/19 11/30/19 History (DRISDOL)] Fluticasone Nasal [place] [Flonase 1 spray EA NOSTRIL HS 10/08/19 11/30/19 History Nasal [place]] Insulin Aspart [NovoLOG Flexpen] See Protocol SQ ACHS 10/08/19 11/30/19 History Insulin Glargine,Hum.rec.anlog 54 unit SQ HS 10/08/19 11/30/19 History [Lantus Solostar] Mirabegron [Myrbetriq] 25 mg PO DAILY 10/08/19 11/30/19 History Fenofibrate [Lofibra] 160 mg PO HS tab 10/17/19 11/30/19 Rx Gabapentin [Neurontin] 400 mg PO TID cap 10/17/19 11/30/19 Rx Metoclopramide [Reglan] 10 mg PO ACHS tab 10/17/19 11/30/19 Rx Metoprolol Succinate (ER) [Toprol 50 mg PO DAILY tab.er.24h 10/17/19 11/30/19 Rx XL] Ondansetron [Zofran] 8 mg PO Q6H PRN tab 10/17/19 11/30/19 Rx Rivaroxaban [Xarelto] 20 mg PO HS tab 10/17/19 11/30/19 Rx Trimethoprim [Trimpex] 100 mg PO HS tab 10/17/19 11/30/19 Rx busPIRone HCL [Buspar] 30 mg PO BID 28 Days tab 10/17/19 11/30/19 Rx cloNIDine HCL [Catapres] 0.1 mg PO HS tab 10/17/19 11/30/19 Rx tiZANidine [Zanaflex] 8 mg PO HS tab 10/17/19 11/30/19 Rx traZODone HCL [Desyrel] 200 mg PO HS #28 tab 10/17/19 11/30/19 Rx Acetaminophen Tab [Tylenol Tab] 650 mg PO Q6H PRN 11/29/19 11/30/19 History [place] Carbonate 600 mg PO HS 11/29/19 11/30/19 History Prochlorperazine Suppository 25 mg RECTAL Q8H PRN 11/29/19 11/30/19 History [Compazine] Topiramate [Topamax] 50 mg PO DAILY 11/29/19 11/30/19 History Promethazine [Phenergan] 25 mg PO Q6H PRN 11/30/19 11/30/19 History Cefuroxime Axetil [Ceftin] 500 mg PO BID 3 Days #6 tab 12/02/19 Rx Allergies Allergy/AdvReac Type Severity Reaction Status Date / Time barium sulfate Allergy Anaphylaxis Verified 11/29/19 23:55 doxepin [Doxepin] Allergy Anaphylaxis Verified 11/29/19 23:55 ephedrine Allergy Unknown Verified 11/29/19 23:55 ertapenem [From Invanz] Allergy Rash/Hives Verified 11/29/19 23:55 influenza virus vaccine, Allergy severe Verified 11/29/19 23:55 specific swelling [Influenza Virus and hives Vacc,Specific] peanut oil AdvReac Severe Nausea & Verified 11/29/19 23:55 Vomiting,itching doxycycline AdvReac Nausea & Verified 11/29/19 23:55 Vomiting & Diarrhea peanut AdvReac Nausea & Verified 11/29/19 23:55 Vomiting Pertussis Vaccines AdvReac fever/seizu Verified 11/29/19 23:55 re pseudoephedrine AdvReac Chest Pain Verified 11/29/19 23:55 pseudoephedrine HCl AdvReac Chest Pain Verified 11/29/19 23:55 [From Sudafed] sulfamethoxazole AdvReac Nausea & Verified 11/29/19 23:55 [From Bactrim] Vomiting trimethoprim [From Bactrim] AdvReac Nausea & Verified 11/29/19 23:55 Vomiting Surgical - Exam Osteopathic Statement: *. No significant issues noted on an osteopathic structural exam other than those noted in the History and Physical/Consult. Vital Signs Temp Pulse Resp BP Pulse Ox 99.1 F 107 H 20 148/92 96 11/29/19 21:21 11/29/19 21:21 11/29/19 21:21 11/29/19 21:21 11/29/19 21:21 - General well developed, well nourished - Eyes PERRL - ENT normal mucosa, no hearing loss - Neck trachea midline - Respiratory normal respiratory effort - Abdomen Soft, tender to palpation in the right upper quadrant, nondistended, no rebound, no guarding - Neurologic normal coordination, normal sensation - Psychiatric oriented to time, oriented to person, oriented to place Results - Labs 12/03/19 06:57 12/03/19 06:57 Abnormal Lab Results - Last 24 Hours (Table) 12/02/19 12/02/19 12/02/19 Range/Units 06:38 17:35 20:15 Hgb (11.4-16.0) gm/dL Hct (34.0-46.0) % Chloride (98-107) mmol/L Glucose (74-99) mg/dL POC Glucose (mg/dL) 107 H 164 H (75-99) mg/dL Delta Bilirubin 0.3 H (0.0-0.2) mg/dL Total Protein 6.0 L (6.3-8.2) g/dL Albumin 3.3 L (3.5-5.0) g/dL 12/03/19 12/03/19 12/03/19 Range/Units 06:57 06:57 07:03 Hgb 10.5 L (11.4-16.0) gm/dL Hct 33.1 L (34.0-46.0) % Chloride 110 H (98-107) mmol/L Glucose 108 H (74-99) mg/dL POC Glucose (mg/dL) 114 H (75-99) mg/dL Delta Bilirubin (0.0-0.2) mg/dL Total Protein (6.3-8.2) g/dL Albumin (3.5-5.0) g/dL 12/03/19 Range/Units 11:57 Hgb (11.4-16.0) gm/dL Hct (34.0-46.0) % Chloride (98-107) mmol/L Glucose (74-99) mg/dL POC Glucose (mg/dL) 163 H (75-99) mg/dL Delta Bilirubin (0.0-0.2) mg/dL Total Protein (6.3-8.2) g/dL Albumin (3.5-5.0) g/dL Microbiology - Last 24 Hours (Table) 11/29/19 21:58 Blood Culture - Preliminary Blood No Growth after 72 hours Diabetes panel 12/02/19 12/03/19 Range/Units 06:38 06:57 Sodium 142 (137-145) mmol/L Potassium 4.6 (3.5-5.1) mmol/L Chloride 110 H (98-107) mmol/L Carbon Dioxide 25 (22-30) mmol/L BUN 13 (7-17) mg/dL Creatinine 0.72 (0.52-1.04) mg/dL Glucose 108 H (74-99) mg/dL Calcium 9.2 (8.4-10.2) mg/dL AST 28 (14-36) U/L ALT 13 (4-34) U/L Alkaline Phosphatase 55 (38-126) U/L Total Protein 6.0 L (6.3-8.2) g/dL Albumin 3.3 L (3.5-5.0) g/dL Calcium panel 12/02/19 12/03/19 Range/Units 06:38 06:57 Calcium 9.2 (8.4-10.2) mg/dL Albumin 3.3 L (3.5-5.0) g/dL Pituitary panel 12/03/19 Range/Units 06:57 Sodium 142 (137-145) mmol/L Potassium 4.6 (3.5-5.1) mmol/L Chloride 110 H (98-107) mmol/L Carbon Dioxide 25 (22-30) mmol/L BUN 13 (7-17) mg/dL Creatinine 0.72 (0.52-1.04) mg/dL Glucose 108 H (74-99) mg/dL Calcium 9.2 (8.4-10.2) mg/dL Adrenal panel 12/02/19 12/03/19 Range/Units 06:38 06:57 Sodium 142 (137-145) mmol/L Potassium 4.6 (3.5-5.1) mmol/L Chloride 110 H (98-107) mmol/L Carbon Dioxide 25 (22-30) mmol/L BUN 13 (7-17) mg/dL Creatinine 0.72 (0.52-1.04) mg/dL Glucose 108 H (74-99) mg/dL Calcium 9.2 (8.4-10.2) mg/dL Total Bilirubin 0.4 (0.2-1.3) mg/dL AST 28 (14-36) U/L ALT 13 (4-34) U/L Alkaline Phosphatase 55 (38-126) U/L Total Protein 6.0 L (6.3-8.2) g/dL Albumin 3.3 L (3.5-5.0) g/dL Assessment and Plan Plan: 39-year-old female, admitted for malaise and sepsis, likely secondary to chronic UTI, with right upper quadrant abdominal pain -Ultrasound of the abdomen was completed and evaluated. There is no evidence of cholelithiasis or gallbladder wall thickening. The patient does continue to complain of right upper quadrant pain. Previous LFTs were examined with only mild elevation in delta bilirubin. Due to the continued right upper quadrant pain we will perform a HIDA scan for further evaluation of the gallbladder. Further recommendations to be made after imaging.
[2019-12-03] MEDS: ONDANSETRON 4 MG TAB PO PRN (13:46)
[2019-12-03] MEDS: ACETAMINOPHEN TAB 325 MG TAB PO PRN (13:46)
[2019-12-03 13:50] LABS: Glucose,Whole Blood 193 mg/dL (75-99)
[2019-12-03] MEDS ORDERED: DICYCLOMINE 20 MG TAB PO PRN (14:40)
[2019-12-03] MEDS ORDERED: POLYETHYLENE GLYCOL 3350 17 GM POWD.PACK PO PRN (14:41)
--- NOTE | 2019-12-03 16:43 | PN ---
PROGRESS NOTE DATE OF SERVICE: 12/03/2019 REASON FOR FOLLOWUP: Fever, possible UTI versus viral syndrome. INTERVAL HISTORY: The patient is currently afebrile. The patient is breathing comfortably. The patient denies having any chest pain, shortness of breath or cough. No nausea, vomiting, abdominal pain or any further diarrhea. PHYSICAL EXAMINATION: Blood pressure is 115/77 with a pulse of 81, temperature 99.5. She is 97% on room air. General description is a middle-aged female lying in bed in no distress. RESPIRATORY SYSTEM: Unlabored breathing. Clear to auscultation anteriorly. HEART: S1, S2. Regular rate and rhythm. ABDOMEN: Soft. No tenderness. EXTREMITIES: No edema of the feet. LABS: Culture has been negative. DIAGNOSTIC IMPRESSION AND PLAN: Patient admitted to hospital with a fever with initial concern for possible urinary tract infection. That has been ruled out with the culture negative. She also had some diarrhea that has resolved as well. Currently on Rocephin; transition to a short course of oral Ceftin on discharge and monitor clinical course closely. MMODL / IJN: [id number] /
[2019-12-03 16:45] LABS: Glucose,Whole Blood 134 mg/dL (75-99)
[2019-12-03 20:31] LABS: Glucose,Whole Blood 187 mg/dL (75-99)
[2019-12-03] MEDS: LITHIUM CARBONATE 300 MG CAP PO SCH (20:44)
[2019-12-03] MEDS: cloNIDine HCL 0.1 MG TAB PO SCH (20:44)
[2019-12-03] MEDS: FLUTICASONE 50MCG/SPRAY NASAL 16GM EA NOSTRIL SCH (20:44)
[2019-12-03] MEDS: FENOFIBRATE 160 MG TAB PO SCH (20:44)
[2019-12-03] MEDS: traZODone HCL 100 MG TAB PO SCH (20:45)
[2019-12-03] MEDS ORDERED: INSULIN DETEMIR (LEVEMIR) 100 UNIT/ML SYR SQ SCH (21:00)
[2019-12-03] MEDS: RIVAROXABAN 20 MG TAB PO SCH (21:37)
[2019-12-03] MEDS: TRIMETHOPRIM 100 MG TAB PO SCH (21:38)
[2019-12-03] MEDS: MORPHINE SULFATE 2 MG/ML SYRINGE IVP PRN (21:40)
--- NOTE | 2019-12-03 22:42 | P.CONS ---
History of Present Illness - Reason for Consult Consult date: 12/03/19 Abdominal pain Requesting physician: Jorden E Sheet - Chief Complaint Weakness, elevated white count, fevers - History of Present Illness 31-year-old female with multiple medical comorbidities including insulin- dependent diabetes mellitus, neurogenic bladder, underlying mitochondrial genetic disease with associated ataxia, chronic nausea related to gastroparesis controlled medically, migraines, polycystic ovarian syndrome and chronic urinary tract infections who presented to the hospital due to complaints of weakness, fevers and leukocytosis. The patient also reports worsening nausea and abdominal pain. She states that the abdominal pain is occurring in the right upper quadrant of her abdomen. The pain is described as sharp and aching in nature. His been present for the past few days. The pain is worsened after eating. She has also had worsening nausea. She states that at baseline she has been diagnosed with moderate gastroparesis and requires Reglan 4 times daily. The patient has Zofran, Phenergan as well as rectal Compazine which she uses as needed for breakthrough nausea. The patient had evaluation of her liver on presentation which was significant for hepatic steatosis. Previously she has gone evaluation with EGD and colonoscopy approximately 3-4 years ago which she reports were essentially normal. She is scheduled to undergo HIDA scan. At baseline she reports bowel movements are regular however she will intermittently have constipation treated with as needed laxative therapy. Review of Systems REVIEW OF SYSTEMS: CONSTITUTIONAL: Denies any chills, weight change but does report fatigue and fevers on presentation. CARDIOVASCULAR: Denies any chest pain, palpitations high or low blood pressures RESPIRATORY: Denies any shortness of breath, hemoptysis or cough. GENITOURINARY: No dysuria or hematuria. MUSCULOSKELETAL: No weakness reported. SKIN: Denies any new rashes or lesions, jaundice or pallor. PSYCHIATRIC: Denies any depression or anxiety. NEUROLOGY: Denies headache, denies any new focal deficits. EARS/NOSE/THROAT: No recent hearing change, congestion, nasal discharge or sore throat. EYES: No pain in eyes, discharge or change in vision. GASTROINTESTINAL: As per HPI. Past Medical History Past Medical History: Chest Pain / Angina, CVA/TIA, Diabetes Mellitus, Deep Vein Thrombosis (DVT), Neurologic Disorder, Syncope, Thyroid Disorder Additional Past Medical History / Comment(s): STROKE LIKE EPISODE D/T MITOCHRONDIAL DISEASE HAD WORK UP DONE AT [facility]. Dysautonomia-progressive neurological disorder, lupus/LUPUS ANTICOAGULANTS, ana maria's disease, lymphedema Lt arm d/t DVTs , v-tach, pituitary microadenoma. patent foramen ovale, narcolepsy, gastropareis, IDDM type II, falls, orthostatic hypotension/syncope, migraines with hemiplegia, pernicious anemia, polycystic ovarian syndrome, neuropathy bilateral legs/feet - mild, uti's. History of Any Multi-Drug Resistant Organisms: ESBL, MRSA Year Discovered:: 03/09/17 MRSA/ 05/17/18 ESBL MDRO Source:: MRSA LEFT ARM,/ESBL URINE ECOLI Past Surgical History: Uterine Ablation Additional Past Surgical History / Comment(s): colonscopy/egd, angie, PORT-A -CATH INSERTION 04-28-18 Past Anesthesia/Blood Transfusion Reactions: No Reported Reaction Additional Past Anesthesia/Blood Transfusion Reaction / Comm: patient states "It takes a lot of anesthesia for my body to react". Pt has received blood in past without reaction. Past Psychological History: Bipolar, Depression Smoking Status: Never smoker Past Alcohol Use History: None Reported Past Drug Use History: None Reported - Past Family History Brother(s) Family Medical History: Diabetes Mellitus, Hyperlipidemia, Hypertension Additional Family Medical History / Comment(s): Patient states she has 1 brother with no major medical problems. Father Family Medical History: Diabetes Mellitus, Hyperlipidemia, Hypertension Additional Family Medical History / Comment(s): DAD IS 70 YEARS OLD. Patient states she does not have any contact with her father and does not know his med ical history. Mother Family Medical History: CVA/TIA, Deep Vein Thrombosis (DVT) Additional Family Medical History / Comment(s): antiphospholipid antibody syndrome Medications and Allergies Home Medications Medication Instructions Recorded Confirmed Type tiZANidine [Zanaflex] 4 mg PO BID@0900,1500 12/04/18 11/30/19 History Levothyroxine Sodium [Synthroid] 100 mcg PO DAILY 01/16/19 11/30/19 History Cyanocobalamin (Vitamin B-12) 2,000 mcg PO DAILY 01/22/19 11/30/19 History [Vitamin B-12] Levothyroxine Sodium [Synthroid] 125 mcg PO DAILY 01/22/19 11/30/19 History Meloxicam [Mobic] 15 mg PO DAILY 03/01/19 11/30/19 History Modafinil [Provigil] 200 mg PO DAILY tab 03/07/19 11/30/19 Rx traMADol HCL [Ultram] 50 mg PO BID PRN 06/28/19 11/30/19 History Methenamine Hippurate 1 gm PO BID 07/12/19 11/30/19 History Dexlansoprazole [Dexilant] 60 mg PO DAILY 10/08/19 11/30/19 History Ergocalciferol [Vitamin D2 50,000 unit PO TAYLOR 10/08/19 11/30/19 History (DRISDOL)] Fluticasone Nasal [place] [Flonase 1 spray EA NOSTRIL HS 10/08/19 11/30/19 History Nasal [place]] Insulin Aspart [NovoLOG Flexpen] See Protocol SQ ACHS 10/08/19 11/30/19 History Insulin Glargine,Hum.rec.anlog 54 unit SQ HS 10/08/19 11/30/19 History [Lantus Solostar] Mirabegron [Myrbetriq] 25 mg PO DAILY 10/08/19 11/30/19 History Fenofibrate [Lofibra] 160 mg PO HS tab 10/17/19 11/30/19 Rx Gabapentin [Neurontin] 400 mg PO TID cap 10/17/19 11/30/19 Rx Metoclopramide [Reglan] 10 mg PO ACHS tab 10/17/19 11/30/19 Rx Metoprolol Succinate (ER) [Toprol 50 mg PO DAILY tab.er.24h 10/17/19 11/30/19 Rx XL] Ondansetron [Zofran] 8 mg PO Q6H PRN tab 10/17/19 11/30/19 Rx Rivaroxaban [Xarelto] 20 mg PO HS tab 10/17/19 11/30/19 Rx Trimethoprim [Trimpex] 100 mg PO HS tab 10/17/19 11/30/19 Rx busPIRone HCL [Buspar] 30 mg PO BID 28 Days tab 10/17/19 11/30/19 Rx cloNIDine HCL [Catapres] 0.1 mg PO HS tab 10/17/19 11/30/19 Rx tiZANidine [Zanaflex] 8 mg PO HS tab 10/17/19 11/30/19 Rx traZODone HCL [Desyrel] 200 mg PO HS #28 tab 10/17/19 11/30/19 Rx Acetaminophen Tab [Tylenol Tab] 650 mg PO Q6H PRN 11/29/19 11/30/19 History [place] Carbonate 600 mg PO HS 11/29/19 11/30/19 History Prochlorperazine Suppository 25 mg RECTAL Q8H PRN 11/29/19 11/30/19 History [Compazine] Topiramate [Topamax] 50 mg PO DAILY 11/29/19 11/30/19 History Promethazine [Phenergan] 25 mg PO Q6H PRN 11/30/19 11/30/19 History Cefuroxime Axetil [Ceftin] 500 mg PO BID 3 Days #6 tab 12/02/19 Rx Allergies Allergy/AdvReac Type Severity Reaction Status Date / Time barium sulfate Allergy Anaphylaxis Verified 11/29/19 23:55 doxepin [Doxepin] Allergy Anaphylaxis Verified 11/29/19 23:55 ephedrine Allergy Unknown Verified 11/29/19 23:55 ertapenem [From Invanz] Allergy Rash/Hives Verified 11/29/19 23:55 influenza virus vaccine, Allergy severe Verified 11/29/19 23:55 specific swelling [Influenza Virus and hives Vacc,Specific] peanut oil AdvReac Severe Nausea & Verified 11/29/19 23:55 Vomiting,itching doxycycline AdvReac Nausea & Verified 11/29/19 23:55 Vomiting & Diarrhea peanut AdvReac Nausea & Verified 11/29/19 23:55 Vomiting Pertussis Vaccines AdvReac fever/seizu Verified 11/29/19 23:55 re pseudoephedrine AdvReac Chest Pain Verified 11/29/19 23:55 pseudoephedrine HCl AdvReac Chest Pain Verified 11/29/19 23:55 [From Sudafed] sulfamethoxazole AdvReac Nausea & Verified 11/29/19 23:55 [From Bactrim] Vomiting trimethoprim [From Bactrim] AdvReac Nausea & Verified 11/29/19 23:55 Vomiting Physical Exam Vitals: Vital Signs Temp Pulse Resp BP Pulse Ox 12/03/19 19:04 99.3 F 74 18 96/64 98 12/03/19 16:01 99.5 F 81 16 115/77 97 12/03/19 08:11 98.7 F 77 16 120/76 98 12/03/19 03:59 18 12/03/19 02:31 98.1 F 75 18 122/78 97 12/02/19 23:55 18 Intake and Output 12/03/19 12/03/19 12/03/19 06:59 14:59 22:59 Intake Total 296 658.5 Balance 296 658.5 Intake: Intake, IV Titration 362.5 Amount Sodium [place]lor[place] 0.9% 1, 262.5 000 ml @ 75 mls/hr IV . [id number] JOSE Rx#:[id number] cefTRIAXone 1 gm In 100 Sodium Chloride 0.9% 50 ml @ 100 mls/hr IVPB HS JOSE Rx#:[id number] Oral 296 296 Other: Voiding Method Toilet Toilet # Voids 1 1 1 # Bowel Movements 1 On physical examination, patient appears comfortable in no apparent distress. HEAD: Normocephalic, atraumatic. EYES: No scleral icterus. No conjunctival injection. MOUTH: No lesions, tongue midline. NECK: Trachea midline, no gross abnormalities. CHEST: Clear to auscultation with no wheezing or rhonchi appreciated. HEART: Regular rate and rhythm. ABDOMEN: Soft, obese. Bowel sounds are positive. No organomegaly. No guarding or rigidity. EXTREMITIES: No pedal edema. SKIN: No rashes, no jaundice. NEUROLOGIC: Alert and oriented x3. Results CBC & Chem 7: 12/03/19 06:57 12/03/19 06:57 Labs: Abnormal Lab Results - Last 24 Hours (Table) 12/03/19 12/03/19 12/03/19 Range/Units 06:57 06:57 07:03 Hgb 10.5 L (11.4-16.0) gm/dL Hct 33.1 L (34.0-46.0) % Chloride 110 H (98-107) mmol/L Glucose 108 H (74-99) mg/dL POC Glucose (mg/dL) 114 H (75-99) mg/dL 12/03/19 12/03/19 12/03/19 Range/Units 11:57 13:39 16:44 Hgb (11.4-16.0) gm/dL Hct (34.0-46.0) % Chloride (98-107) mmol/L Glucose (74-99) mg/dL POC Glucose (mg/dL) 163 H 193 H 134 H (75-99) mg/dL 12/03/19 Range/Units 20:20 Hgb (11.4-16.0) gm/dL Hct (34.0-46.0) % Chloride (98-107) mmol/L Glucose (74-99) mg/dL POC Glucose (mg/dL) 187 H (75-99) mg/dL Microbiology - Last 24 Hours (Table) 11/29/19 21:58 Blood Culture - Preliminary Blood No Growth after 72 hours US - abdomen: report reviewed (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 Currently she is reporting abdominal pain in the right upper quadrant of her abdomen described as sharp and aching in nature lasting hours at a time and worsened after eating. No findings of dilated common bile duct or gallstones on ultrasound of the abdomen which was significant for hepatic steatosis. Currently the patient is planned for HIDA scan for further evaluation. She also suffers from chronic nausea baseline secondary to moderate gastroparesis for which she is on antiemetic therapy. Unclear etiology of symptoms may be related to gastroenteritis, functional bowel disorder, gastritis, peptic ulcer disease or other etiology. Current Visit: No Status: Acute Code(s): R10.9 - UNSPECIFIED ABDOMINAL PAIN SNOMED Code(s): 69824243 (2) Gastroparesis Current Visit: Yes Status: Acute Code(s): K31.84 - GASTROPARESIS SNOMED Code(s): 606490021 Plan: Supportive care Okay for diet Continue Protonix daily Continue antiemetic regimen Bentyl added as needed for abdominal pain with first dose given Continue evaluation by other consulting services HIDA scan ordered and pending MiraLAX bowel regimen ordered Thank you for allowing us to participate in care of this patient we will continue to follow
[2019-12-04] MEDS: SODIUM CHLORIDE 0.9% 1,000 ML IV SCH ×2 (00:12→16:29)
[2019-12-04 07:17] LABS: Glucose,Whole Blood 110 mg/dL (75-99)
[2019-12-04 07:44] LABS: Basophils % (A) 1 %; Eosinophils # (A) 0.4 k/uL (0-0.7); Eosinophils % (A) 5 %; HCT 33.7 % (34.0-46.0); HGB 10.2 gm/dL (11.4-16.0); Hypochromasia Slight; Lymphocytes # (A) 1.6 k/uL (1.0-4.8); Lymphocytes % (A) 22 %; MCHC 30.2 g/dL (31.0-37.0); Mean Platelet Volume 7.2; Monocytes # (A) 0.4 k/uL (0-1.0); Monocytes % (A) 6 %; Neutrophils # (A) 4.7 k/uL (1.3-7.7); Neutrophils % (A) 65 %; Platelet Count 304 k/uL (150-450); RBC 3.91 m/uL (3.80-5.40); RDW 14.2 % (11.5-15.5); WBC 7.2 k/uL (3.8-10.6)
[2019-12-04 08:13] LABS: ALT 14 U/L (4-34); AST 17 U/L (14-36); African American GFR (CKD) >90 (>60 ml/min/1.73 sqM); Albumin 3.5 g/dL (3.5-5.0); Alkaline Phosphatase 63 U/L (38-126); Anion Gap 9 mmol/L; Blood Urea Nitrogen 13 mg/dL (7-17); Calcium 9.4 mg/dL (8.4-10.2); Carbon Dioxide 25 mmol/L (22-30); Chloride 109 mmol/L (98-107); Glucose 102 mg/dL (74-99); Non-African American GFR(CKD) >90 (>60 ml/min/1.73 sqM); Potassium 4.3 mmol/L (3.5-5.1); Sodium 143 mmol/L (137-145); Total Bilirubin 0.3 mg/dL (0.2-1.3); Total Protein 6.1 g/dL (6.3-8.2)
--- NOTE | 2019-12-04 11:23 | NM ---
EXAMINATION TYPE: NM hepatobiliary w CCK DATE OF EXAM: 12/04/2019 COMPARISON: Ultrasound 12/03/2019 HISTORY: Right upper quadrant pain TECHNIQUE: After the intravenous administration of 5.1 mCi Tc 99m Mebrofenin hepatobiliary scintigrap hy is performed. Immediate images post injection. FINDINGS: There is satisfactory initial accumulation of tracer by the liver. The gallbladder is visualized wit hin 10 minutes. The small bowel activity is noted on delayed images. At one hour CCK was administer ed, patient was injected with 2.15 mcg of Kinevac, and gallbladder ejection fraction is calculated at 80 %, in the normal range. Therefore there is no scintigraphic evidence of cystic or common bile du ct obstruction to suggest acute cholecystitis or gallbladder dyskinesia. IMPRESSION: Exam is within normal limits.
--- NOTE | 2019-12-04 11:59 | P.PN ---
Subjective Progress Note Date: 12/04/19 Patient seen and examined at bedside. No acute events. She states that she still is having right upper quadrant pain, unchanged from yesterday. She did have HIDA scan performed this morning. Objective - Vital Signs Vital signs: Vital Signs Temp 98.3 F 12/04/19 07:55 Pulse 69 12/04/19 08:00 Resp 18 12/04/19 08:00 BP 98/62 12/04/19 07:55 Pulse Ox 99 12/04/19 07:55 Intake & Output 12/03/19 12/04/19 12/04/19 18:59 06:59 18:59 Intake Total 592 962.5 Balance 592 962.5 Intake: Intake, IV Titration 962.5 Amount Sodium Chloride 0.9% 1, 862.5 000 ml @ 75 mls/hr IV . [id number] JOSE Rx#:[id number] cefTRIAXone 1 gm In 100 Sodium Chloride 0.9% 50 ml @ 100 mls/hr IVPB HS JOSE Rx#:[id number] Oral 592 Other: Voiding Method Toilet Toilet # Voids 1 3 - Constitutional General appearance: Present: cooperative, no acute distress - Gastrointestinal Gastrointestinal Comment(s): Soft, nontender, nondistended, no rebound, no guarding - Psychiatric Psychiatric: Present: A&O x's 3 - Labs CBC & Chem 7: 12/04/19 06:51 12/04/19 06:51 Labs: Abnormal Lab Results - Last 24 Hours (Table) 12/03/19 12/03/19 12/03/19 Range/Units 11:57 13:39 16:44 Hgb (11.4-16.0) gm/dL Hct (34.0-46.0) % MCHC (31.0-37.0) g/dL Chloride (98-107) mmol/L Glucose (74-99) mg/dL POC Glucose (mg/dL) 163 H 193 H 134 H (75-99) mg/dL Total Protein (6.3-8.2) g/dL 12/03/19 12/04/19 12/04/19 Range/Units 20:20 06:51 06:51 Hgb 10.2 L (11.4-16.0) gm/dL Hct 33.7 L (34.0-46.0) % MCHC 30.2 L (31.0-37.0) g/dL Chloride 109 H (98-107) mmol/L Glucose 102 H (74-99) mg/dL POC Glucose (mg/dL) 187 H (75-99) mg/dL Total Protein 6.1 L (6.3-8.2) g/dL 12/04/19 Range/Units 07:05 Hgb (11.4-16.0) gm/dL Hct (34.0-46.0) % MCHC (31.0-37.0) g/dL Chloride (98-107) mmol/L Glucose (74-99) mg/dL POC Glucose (mg/dL) 110 H (75-99) mg/dL Total Protein (6.3-8.2) g/dL Microbiology - Last 24 Hours (Table) 11/29/19 21:58 Blood Culture - Preliminary Blood No Growth after 96 hours Assessment and Plan Plan: 39-year-old female, admitted for malaise and sepsis, likely secondary to chronic UTI, with right upper quadrant abdominal pain - Ultrasound of the abdomen was completed and evaluated. There is no evidence of cholelithiasis or gallbladder wall thickening. - HIDA scan was also completed and evaluated. Exam was within normal limits wi th no obvious cystic duct obstruction. Right upper quadrant pain is likely not secondary to gallbladder dysfunction. - GI recommendations are appreciated. Any endoscopic decisions to be made by GI team. - No plan for acute surgical intervention. Okay to continue diet.
[2019-12-04] MEDS: INSULIN ASPART (NovoLOG) 100 UNIT/ML VIAL SQ SCH ×3 (12:53→17:36)
[2019-12-04] MEDS: INSULIN REGULAR 100 UNIT/ML VIAL SQ SCH ×3 (12:53→17:36)
[2019-12-04] MEDS: busPIRone HCl 10 MG TAB PO SCH (12:59)
[2019-12-04] MEDS: METOPROLOL SUCCINATE (ER) 50 MG TAB.ER.24H PO SCH (13:00)
[2019-12-04] MEDS: LEVOTHYROXINE 100 MCG TAB PO SCH (13:00)
[2019-12-04] MEDS: CYANOCOBALAMIN 500 MCG TAB PO SCH (13:00)
[2019-12-04] MEDS: LEVOTHYROXINE 125 MCG TAB PO SCH (13:00)
[2019-12-04] MEDS: MELOXICAM 7.5 MG TAB PO SCH (13:00)
[2019-12-04] MEDS: PANTOPRAZOLE 40 MG TABLET PO SCH (13:00)
[2019-12-04] MEDS: GABAPENTIN 400 MG CAP PO SCH ×2 (13:01→16:28)
[2019-12-04] MEDS: LORATADINE 10 MG TAB PO SCH (13:01)
[2019-12-04] MEDS: METOCLOPRAMIDE 10 MG TAB PO SCH ×3 (13:01→17:37)
[2019-12-04] MEDS: MODAFINIL 200 MG TAB PO SCH (13:01)
[2019-12-04] MEDS: METHENAMINE HIPPURATE 1 GM TABLET PO SCH (13:02)
[2019-12-04] MEDS: tiZANidine 4 MG TAB PO SCH ×2 (13:03→17:36)
[2019-12-04] MEDS: TOPIRAMATE 25 MG TAB PO SCH (13:03)
[2019-12-04] MEDS: MYRBETRIQ 25 MG PO SCH (13:08)
[2019-12-04] MEDS: traMADol 50 MG TAB PO PRN (13:15)
--- NOTE | 2019-12-04 15:33 | P.DS ---
Providers Date of admission: 11/29/19 23:01 Attending physician: Adriana Douglas Consults: 11/30/19 12:56 Consult Physician Routine Consulting Provider: Juliane Llanes Consult Reason/Comments: Sepsis Do you want consulting provider notified?: Yes 11/30/19 18:14 Consult Physician Routine Consulting Provider: Juliane Llanes Consult Reason/Comments: sepsis Do you want consulting provider notified?: Yes 12/03/19 10:11 Consult Physician Urgent Consulting Provider: Cyril Faye Consult Reason/Comments: upper abd pain Do you want consulting provider notified?: Yes Consult Physician Urgent Consulting Provider: Nani Puga Consult Reason/Comments: upper abd pain Do you want consulting provider notified?: Yes Primary care physician: [facility] Course: Diagnoses: RUQ tenderness and pain Sepsis of unknown etiology, improving Insulin-dependent diabetes mellitus, with uncontrolled hemoglobin A1c of 8.2% 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 She follows up with Dr. Vickers Neurogenic bladder, multifactorial Chronic UTI on Bactrim Status post uterine ablation, patient appears to check for test Gastroparesis secondary to diabetes Obesity history of the venous thrombosis on Xarelto history of Emily disease history of Pituitary microadenoma history of Patent foramen ovale history of Narcolepsy history of Migraine history of Polycystic ovarian syndrome Hospital course: this is a pleasant 39 years old female with past medical history of diabetes mellitus on insulin, neurogenic bladder related to mitochondrial disease and she follows with Dr. 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 Presents because she was feeling exhausted, malaise and fevers and blood tests show an increased WBC of 17 K as per patient and documents. On admission her WBC was 11.4 K, patient was treated with antibiotics as per infectious disease team, she was getting Rocephin. Patient clinically improved, she does not feel weak or exhausted , her white cell count has been coming down to normal . blood culture show no growth. No urine culture. Urine analysis was slightly suspicious for infection. However patient hemoglobin A1c is 8.2 percent, she is on Levemir 54 units at home, however we changed that to Levemir 40 units at bedtime and 5 units with meals and patient agrees. Also patient will be discharged on short course of Ceftin as per ID team However patient over the last 4-5 days she's been having right upper quadrant pain non-radiating, abdominal ultrasound was unremarkable except for hepatic steatosis. GI and surgery team evaluated the patient. HIDA scan was ordered which was unremarkable , pt tolerated diet well, pt she still has some mild pain mostly related to her gastroparesis, pt will be discharged on bentyl prn and protonix and she will need to f/u with her pcp and GI team as outpt and pt agrees Eventually patient was cleared for discharge by surgery, GI and ID team's Problems and management plan were discussed with the patient and he verbalized understanding and acceptance Patient was found stable and can be discharged home however he needs follow-up as an outpatient. Patient was instructed to follow up with PCP within one week and patient agrees. I called and discussed the case with her PCP Dr. Montano. He kindly took note of that and he expecting to see the patient for posthospital follow-up pt agrees with appointment with pcp and GI team Gen: patient is a AAOx3, no distress CVS: S1-S2, RRR, no murmur Lungs: B/L CTA, no wheezing Abdomen: soft, no distention, no tenderness, positive bowel sounds Extremity: no leg edema or induration Time spent more than 35 minutes Patient Condition at Discharge: Serious Plan - Discharge Summary Discharge Rx Participant: No New Discharge Prescriptions: New Cefuroxime Axetil [Ceftin] 500 mg PO BID 3 Days #6 tab Dicyclomine [Bentyl] 20 mg PO QID PRN #8 tab PRN Reason: Dyspepsia Insulin Regular [humuLIN R] 5 unit SQ AC-TID #1 vial Insulin Detemir (Levemir) [Levemir] 40 unit SQ HS #1 vial Pantoprazole [Protonix] 40 mg PO AC-BRKFST #[address] tablet[address] Jung tiZANidine [Zanaflex] 4 mg PO BID@0900,1500 Levothyroxine Sodium [Synthroid] 100 mcg PO DAILY Cyanocobalamin (Vitamin B-12) [Vitamin B-12] 2,000 mcg PO DAILY Modafinil [Provigil] 200 mg PO DAILY tab traMADol HCL [Ultram] 50 mg PO BID PRN PRN Reason: Mild To Moderate Pain Methenamine Hippurate 1 gm PO BID Fluticasone Nasal [place] [Flonase Nasal [place]] 1 spray EA NOSTRIL HS Mirabegron [Myrbetriq] 25 mg PO DAILY Insulin Aspart [NovoLOG Flexpen] See Protocol SQ ACHS Ergocalciferol [Vitamin D2 (DRISDOL)] 50,000 unit PO TAYLOR busPIRone HCL [Buspar] 30 mg PO BID 28 Days tab cloNIDine HCL [Catapres] 0.1 mg PO HS tab traZODone HCL [Desyrel] 200 mg PO HS #28 tab Fenofibrate [Lofibra] 160 mg PO HS tab Gabapentin [Neurontin] 400 mg PO TID cap Metoclopramide [Reglan] 10 mg PO ACHS tab Metoprolol Succinate (ER) [Toprol XL] 50 mg PO DAILY tab.er.24h Trimethoprim [Trimpex] 100 mg PO HS tab Rivaroxaban [Xarelto] 20 mg PO HS tab tiZANidine [Zanaflex] 8 mg PO HS tab Ondansetron [Zofran] 8 mg PO Q6H PRN tab PRN Reason: Nausea Acetaminophen Tab [Tylenol] 650 mg PO Q6H PRN PRN Reason: Fever And/ Or Pain Prochlorperazine Suppository [Compazine] 25 mg RECTAL Q8H PRN PRN Reason: Nausea Topiramate [Topamax] 50 mg PO DAILY Promethazine [Phenergan] 25 mg PO Q6H PRN PRN Reason: Nausea [place] Carbonate 600 mg PO HS Discontinued Levothyroxine Sodium [Synthroid] 125 mcg PO DAILY Meloxicam [Mobic] 15 mg PO DAILY Insulin Glargine,Hum.rec.anlog [Lantus Solostar] 54 unit SQ HS Dexlansoprazole [Dexilant] 60 mg PO DAILY Discharge Medication List tiZANidine [Zanaflex] 4 mg PO BID@0900,1500 12/04/18 [History] Levothyroxine Sodium [Synthroid] 100 mcg PO DAILY 01/16/19 [History] Cyanocobalamin (Vitamin B-12) [Vitamin B-12] 2,000 mcg PO DAILY 01/22/19 [History] Modafinil [Provigil] 200 mg PO DAILY tab 03/07/19 [Rx] traMADol HCL [Ultram] 50 mg PO BID PRN 06/28/19 [History] Methenamine Hippurate 1 gm PO BID 07/12/19 [History] Ergocalciferol [Vitamin D2 (DRISDOL)] 50,000 unit PO TAYLOR 10/08/19 [History] Fluticasone Nasal [place] [Flonase Nasal [place]] 1 spray EA NOSTRIL HS 10/08/19 [History] Insulin Aspart [NovoLOG Flexpen] See Protocol SQ ACHS 10/08/19 [History] Mirabegron [Myrbetriq] 25 mg PO DAILY 10/08/19 [History] Fenofibrate [Lofibra] 160 mg PO HS tab 10/17/19 [Rx] Gabapentin [Neurontin] 400 mg PO TID cap 10/17/19 [Rx] Metoclopramide [Reglan] 10 mg PO ACHS tab 10/17/19 [Rx] Metoprolol Succinate (ER) [Toprol XL] 50 mg PO DAILY tab.er.24h 10/17/19 [Rx] Ondansetron [Zofran] 8 mg PO Q6H PRN tab 10/17/19 [Rx] Rivaroxaban [Xarelto] 20 mg PO HS tab 10/17/19 [Rx] Trimethoprim [Trimpex] 100 mg PO HS tab 10/17/19 [Rx] busPIRone HCL [Buspar] 30 mg PO BID 28 Days tab 10/17/19 [Rx] cloNIDine HCL [Catapres] 0.1 mg PO HS tab 10/17/19 [Rx] tiZANidine [Zanaflex] 8 mg PO HS tab 10/17/19 [Rx] traZODone HCL [Desyrel] 200 mg PO HS #28 tab 10/17/19 [Rx] Acetaminophen Tab [Tylenol] 650 mg PO Q6H PRN 11/29/19 [History] [place] Carbonate 600 mg PO HS 11/29/19 [History] Prochlorperazine Suppository [Compazine] 25 mg RECTAL Q8H PRN 11/29/19 [History] Topiramate [Topamax] 50 mg PO DAILY 11/29/19 [History] Promethazine [Phenergan] 25 mg PO Q6H PRN 11/30/19 [History] Cefuroxime Axetil [Ceftin] 500 mg PO BID 3 Days #6 tab 12/02/19 [Rx] Dicyclomine [Bentyl] 20 mg PO QID PRN #8 tab 12/04/19 [Rx] Insulin Detemir (Levemir) [Levemir] 40 unit SQ HS #1 vial 12/04/19 [Rx] Insulin Regular [humuLIN R] 5 unit SQ AC-TID #1 vial 12/04/19 [Rx] Pantoprazole [Protonix] 40 mg PO AC-BRKFST #30 tablet. 12/04/19 [Rx] Follow up Appointment(s)/Referral(s): Micah Cunningham MD [REFERRING] - 2 Weeks (residency program coordinator ) Julissa Montano III, MD [Primary Care Provider] - 12/11/19 2:00 pm Nani Puga MD [STAFF PHYSICIAN] - 12/24/19 1:45 pm (lunch truck operator) Juliane Llanes MD [STAFF PHYSICIAN] - 10 Days (ID) Activity/Diet/Wound Care/Special Instructions: diabetic 1600 kcal per day activity is limited till you see your doctor Discharge Disposition: HOME SELF-CARE
[2019-12-04 16:38] VITALS: BP 104/69; PULSE 73; RESP 17; TEMP 98
[2019-12-04 17:01] LABS: Glucose,Whole Blood 165 mg/dL (75-99)
--- NOTE | 2019-12-04 17:03 | PN ---
PROGRESS NOTE DATE OF SERVICE: 12/04/2019 REASON FOR FOLLOWUP: Fever and a question of UTI. INTERVAL HISTORY: The patient is currently afebrile. The patient has been breathing comfortably. She is complaining of some vague abdominal pain. No nausea, no vomiting and no diarrhea. No urinary symptoms. PHYSICAL EXAMINATION: Blood pressure is 98/62 with a pulse of 59, temperature 98.3. She is 99% on room air. General description is a middle-aged female lying in bed in no distress. RESPIRATORY SYSTEM: Unlabored breathing. Clear to auscultation anteriorly. HEART: S1, S2. Regular rate and rhythm. ABDOMEN: Soft. No tenderness. LABS: Hemoglobin 10.1, white count 7.2, BUN of 13, creatinine 0.80. culture has been negative. DIAGNOSTIC IMPRESSION AND PLAN: Patient admitted to hospital with a fever with concern for possible urinary tract infection. Urine culture has been negative. The patient has received adequate antibiotic therapy, which can be discontinued on discharge, as currently no other clinical focus of infection. Continue with supportive care. MMODL / IJN: [id number] /
--- NOTE | 2019-12-11 08:05 | CDI ---
Documentation Clarification Form Date: 12/11/19 From: Rossana Grey Phone: If you have a question about this query, please contact Carey Jimenez Diamond Selector at [phone] between 8am and 5pm. Admit Date: 11/29/19 Discharge Date: 12/04/19 Patient Name: Francisca Khoury Visit Number: [id number] ATTENTION: The Clinical Documentation Specialists (CDI) and [facility] Coding Staff appreciate your assistance in clarifying documentation. Please respond to the clarification below the line at the bottom and electronically sign. The CDI & [facility] Coding staff will review the response and follow-up if needed. Please note: Queries are made part of the Legal Health Record. If you have any questions, please contact the author of this message via ITS. Dear Dr. Leonardo Sheet, The patient has uncontrolled Type II diabetes, as indicated on progress note 12/03. POC Glucose: 138, 174, 124, 191, 110, 127, 148, 222, 103, 113, 107, 164, 114, 163, 193, 134, 187, 110, 165 Glucose: 124, 98, 108, 102 A1c: 8.2 Treatment: Insulin NovoLOG sliding scale protocol Per [facility] 2016 - query the provider for clarification whether the patient has hyperglycemia or hypoglycemia so that the appropriate code may be reported - uncontrolled diabetes indicates that the patient's blood sugar is not at an acceptable level, because it is either too high or too low. In order to capture the severity of Illness and necessary documentation specificity, please clarify if Type 2 uncontrolled diabetes is: Hyperglycemia Other, please specify Unable to Determine Please continue to document in your progress notes and discharge summary in order to capture severity of illness and risk of mortality. Include clinical findings that support your diagnosis. Hyperglycemia MTDD
== END 2019-12-04 19:16 | disposition home or self-care (01) | DRG 872 ==
LOC: EC 21:20 → 4SSUR 23:01
PROVIDERS: ADMIT Hospitalist; ATTEND Hospitalist
DX: A41.9 Sepsis, unspecified organism (principal); E88.40 Mitochondrial metabolism disorder, unspecified; D68.62 Lupus anticoagulant syndrome; G81.90 Hemiplegia, unspecified affecting unspecified side; Q21.1 Atrial septal defect; E87.2 Acidosis; N39.0 Urinary tract infection, site not specified; G43.409 Hemiplegic migraine, not intractable, without status migrainosus; E11.43 Type 2 diabetes mellitus with diabetic autonomic (poly)neuropathy; E11.42 Type 2 diabetes mellitus with diabetic polyneuropathy; K76.0 Fatty (change of) liver, not elsewhere classified; K31.84 Gastroparesis; E11.65 Type 2 diabetes mellitus with hyperglycemia; G90.1 Familial dysautonomia [Riley-Day]; G47.419 Narcolepsy without cataplexy; I95.1 Orthostatic hypotension; D51.0 Vitamin B12 deficiency anemia due to intrinsic factor deficiency; E06.3 Autoimmune thyroiditis; E28.2 Polycystic ovarian syndrome; N31.9 Neuromuscular dysfunction of bladder, unspecified; D35.2 Benign neoplasm of pituitary gland; G24.9 Dystonia, unspecified; R19.7 Diarrhea, unspecified; R27.0 Ataxia, unspecified; I89.0 Lymphedema, not elsewhere classified; F31.9 Bipolar disorder, unspecified; E66.01 Morbid (severe) obesity due to excess calories; Z68.39 Body mass index [BMI] 39.0-39.9, adult; Z79.4 Long term (current) use of insulin; Z79.1 Long term (current) use of non-steroidal anti-inflammatories (NSAID); Z79.890 Hormone replacement therapy; Z79.01 Long term (current) use of anticoagulants; Z79.2 Long term (current) use of antibiotics; Z79.899 Other long term (current) drug therapy; Z71.3 Dietary counseling and surveillance; Z87.440 Personal history of urinary (tract) infections; Z86.718 Personal history of other venous thrombosis and embolism; Z86.14 Personal history of Methicillin resistant Staphylococcus aureus infection; Z86.19 Personal history of other infectious and parasitic diseases; Z86.73 Personal history of transient ischemic attack (TIA), and cerebral infarction without residual deficits; Z87.19 Personal history of other diseases of the digestive system; Z86.79 Personal history of other diseases of the circulatory system; Z98.890 Other specified postprocedural states; Z88.2 Allergy status to sulfonamides; Z88.7 Allergy status to serum and vaccine; Z88.8 Allergy status to other drugs, medicaments and biological substances; Z88.1 Allergy status to other antibiotic agents; Z91.010 Allergy to peanuts; Z83.3 Family history of diabetes mellitus; Z83.49 Family history of other endocrine, nutritional and metabolic diseases; Z82.49 Family history of ischemic heart disease and other diseases of the circulatory system; Z82.3 Family history of stroke; Z83.2 Family history of diseases of the blood and blood-forming organs and certain disorders involving the immune mechanism
CPT/HCPCS: 36415; 71046; 76700; 78227; 80048; 80053; 80076; 80178; 81001; 81025; 83036; 83605; 84439; 84443; 84484; 85025; 87040; 87502; 93005; 96360; 96361; 99285

== ENCOUNTER → 2019-11-29 | Outpatient (CLI) | payer MEDICARE, OTHER ==
[2019-11-29 14:22] LABS: Basophils % (A) 0 %; Eosinophils % (A) 0 %; HGB 11.4 gm/dL (11.4-16.0); Hypochromasia Slight; Lymphocytes # (A) 1.2 k/uL (1.0-4.8); Lymphocytes % (A) 7 %; MCHC 31.5 g/dL (31.0-37.0); MCV 85.5 fL (80.0-100.0); Mean Platelet Volume 7.4; Monocytes # (A) 0.8 k/uL (0-1.0); Monocytes % (A) 5 %; Neutrophils % (A) 87 %; Platelet Count 460 k/uL (150-450); RBC 4.21 m/uL (3.80-5.40); RDW 14.1 % (11.5-15.5); WBC 17.2 k/uL (3.8-10.6)
[2019-11-29 19:02] LABS: Albumin 4.7 g/dL (3.80-4.90); Albumin/Globulin Ratio 2.76 (1.60-3.17); Anion Gap 13.4 mmol/L (4.00-12.00); BUN/Creat Ratio 17.78 Ratio (12.00-20.00); Calcium 9.4 mg/dL (8.7-10.3); Carbon Dioxide 16.6 mmol/L (21.6-31.8); Globulin 1.7 g/dL (1.6-3.3); Lithium 0.2 mmol/L (0.5-1.2); Non-African American GFR(CKD) 81.1 (60.0-200.0); Potassium 4.2 mmol/L (3.5-5.5); T4, Free (Free Thyroxine) 1.9 ng/dL (0.80-1.80); Total Bilirubin 0.1 mg/dL (0.3-1.2); Total Protein 6.4 g/dL (6.2-8.2)
[2019-11-29 19:57] LABS: Hemoglobin A1C 8.5 % (4.0-6.0)
== END | disposition home or self-care (01) ==
LOC: LABWHC1 13:52
PROVIDERS: ATTEND Psychiatry & Neurology Psychiatry
DX: E11.65 Type 2 diabetes mellitus with hyperglycemia (principal); E78.2 Mixed hyperlipidemia; K31.84 Gastroparesis; I95.1 Orthostatic hypotension; E88.40 Mitochondrial metabolism disorder, unspecified; E03.9 Hypothyroidism, unspecified; Z79.899 Other long term (current) drug therapy
CPT/HCPCS: 36415; 80053; 80178; 83036; 84439; 84443; 85025

== ENCOUNTER 2019-12-06 16:05 | Emergency (ER) | payer MEDICARE, OTHER ==
[2019-12-06] MEDS ORDERED: SODIUM CHLORIDE 0.9% 500 ML 500 ML IV STA (16:37)
[2019-12-06] MEDS ORDERED: DICYCLOMINE 10 MG/ML 2 ML AMP IM STA (16:37)
--- NOTE | 2019-12-06 16:59 | ED ---
Abdominal Pain HPI - General Chief Complaint: Abdominal Pain Stated Complaint: Fever, abd pain Time Seen by Provider: 12/06/19 16:09 Source: patient Mode of arrival: wheelchair Limitations: no limitations - History of Present Illness Initial Comments: Patient is a 39 -year-old female presenting to emergency Department with a chief complaint of abdominal pain. Patient states she was discharged recently after a 5 day stay for sepsis. Patient reports during her stay she was evaluated for right upper quadrant abdominal tenderness/pain that radiates to the flank region. Patient reports an ultrasound was performed showing fatty liver but otherwise not related to the gallbladder. Patient reports the pain has increased in severity and she was advised to come to the ED for reevaluation if that continues. Patient reports the pain is there after she eats. Not particularly related to fatty food. No changes with fluid intake only. Reports continuous nausea. Denies diarrhea, constipation, hematuria, hematochezia or melena. Denies any increased urgency or frequency or dysuria. - Related Data Home Medications Medication Instructions Recorded Confirmed tiZANidine [Zanaflex] 4 mg PO BID@0900,1500 12/04/18 11/30/19 Levothyroxine Sodium [Synthroid] 100 mcg PO DAILY 01/16/19 11/30/19 Cyanocobalamin (Vitamin B-12) 2,000 mcg PO DAILY 01/22/19 11/30/19 [Vitamin B-12] traMADol HCL [Ultram] 50 mg PO BID PRN 06/28/19 11/30/19 Methenamine Hippurate 1 gm PO BID 07/12/19 11/30/19 Ergocalciferol [Vitamin D2 50,000 unit PO TAYLOR 10/08/19 11/30/19 (DRISDOL)] Fluticasone Nasal [place] [Flonase 1 spray EA NOSTRIL HS 10/08/19 11/30/19 Nasal [place]] Insulin Aspart [NovoLOG Flexpen] See Protocol SQ ACHS 10/08/19 11/30/19 Mirabegron [Myrbetriq] 25 mg PO DAILY 10/08/19 11/30/19 Acetaminophen Tab [Tylenol] 650 mg PO Q6H PRN 11/29/19 11/30/19 [place] Carbonate 600 mg PO HS 11/29/19 11/30/19 Prochlorperazine Suppository 25 mg RECTAL Q8H PRN 11/29/19 11/30/19 [Compazine] Topiramate [Topamax] 50 mg PO DAILY 11/29/19 11/30/19 Promethazine [Phenergan] 25 mg PO Q6H PRN 11/30/19 11/30/19 Previous Rx's Medication Instructions Recorded Modafinil [Provigil] 200 mg PO DAILY tab 03/07/19 Fenofibrate [Lofibra] 160 mg PO HS tab 10/17/19 Gabapentin [Neurontin] 400 mg PO TID cap 10/17/19 Metoclopramide [Reglan] 10 mg PO ACHS tab 10/17/19 Metoprolol Succinate (ER) [Toprol 50 mg PO DAILY tab.er.24h 10/17/19 XL] Ondansetron [Zofran] 8 mg PO Q6H PRN tab 10/17/19 Rivaroxaban [Xarelto] 20 mg PO HS tab 10/17/19 Trimethoprim [Trimpex] 100 mg PO HS tab 10/17/19 busPIRone HCL [Buspar] 30 mg PO BID 28 Days tab 10/17/19 cloNIDine HCL [Catapres] 0.1 mg PO HS tab 10/17/19 tiZANidine [Zanaflex] 8 mg PO HS tab 10/17/19 traZODone HCL [Desyrel] 200 mg PO HS #28 tab 10/17/19 Cefuroxime Axetil [Ceftin] 500 mg PO BID 3 Days #6 tab 12/02/19 Dicyclomine [Bentyl] 20 mg PO QID PRN #8 tab 12/04/19 Insulin Detemir (Levemir) [Levemir] 40 unit SQ HS #1 vial 12/04/19 Insulin Regular [humuLIN R] 5 unit SQ AC-TID #1 vial 12/04/19 Pantoprazole [Protonix] 40 mg PO AC-BRKFST #30 tablet. 12/04/19 Allergies Allergy/AdvReac Type Severity Reaction Status Date / Time barium sulfate Allergy Anaphylaxis Verified 12/06/19 16:09 doxepin [Doxepin] Allergy Anaphylaxis Verified 12/06/19 16:09 ephedrine Allergy Unknown Verified 12/06/19 16:09 ertapenem [From Invanz] Allergy Rash/Hives Verified 12/06/19 16:09 influenza virus vaccine, Allergy severe Verified 12/06/19 16:09 specific swelling [Influenza Virus and hives Vacc,Specific] peanut oil AdvReac Severe Nausea & Verified 12/06/19 16:09 Vomiting,itching doxycycline AdvReac Nausea & Verified 12/06/19 16:09 Vomiting & Diarrhea peanut AdvReac Nausea & Verified 12/06/19 16:09 Vomiting Pertussis Vaccines AdvReac fever/seizu Verified 12/06/19 16:09 re pseudoephedrine AdvReac Chest Pain Verified 12/06/19 16:09 pseudoephedrine HCl AdvReac Chest Pain Verified 12/06/19 16:09 [From Sudafed] sulfamethoxazole AdvReac Nausea & Verified 12/06/19 16:09 [From Bactrim] Vomiting trimethoprim [From Bactrim] AdvReac Nausea & Verified 12/06/19 16:09 Vomiting Review of Systems ROS Statement: Those systems with pertinent positive or pertinent negative responses have been documented in the HPI. ROS Other: All systems not noted in ROS Statement are negative. Past Medical History Past Medical History: Chest Pain / Angina, CVA/TIA, Diabetes Mellitus, Deep Vein Thrombosis (DVT), Neurologic Disorder, Syncope, Thyroid Disorder Additional Past Medical History / Comment(s): STROKE LIKE EPISODE D/T MITOCHRONDIAL DISEASE HAD WORK UP DONE AT [facility]. Dysautonomia-progressive neurological disorder, lupus/LUPUS ANTICOAGULANTS, ana maria's disease, lymphedema Lt arm d/t DVTs , v-tach, pituitary microadenoma. patent foramen ovale, narcolepsy, gastropareis, IDDM type II, falls, orthostatic hypotension/syncope, migraines with hemiplegia, pernicious anemia, polycystic ovarian syndrome, neuropathy bilateral legs/feet - mild, uti's. History of Any Multi-Drug Resistant Organisms: ESBL, MRSA Date of last positivie culture/infection: 03/09/17 MRSA/ 05/17/18 ESBL MDRO Source:: MRSA LEFT ARM,/ESBL URINE ECOLI Past Surgical History: Uterine Ablation Additional Past Surgical History / Comment(s): colonscopy/egd, angie, PORT-A -CATH INSERTION 04-28-18 Past Anesthesia/Blood Transfusion Reactions: No Reported Reaction Additional Past Anesthesia/Blood Transfusion Reaction / Comment(s): patient states "It takes a lot of anesthesia for my body to react". Pt has received blood in past without reaction. Past Psychological History: Bipolar, Depression Smoking Status: Never smoker Past Alcohol Use History: None Reported Past Drug Use History: None Reported - Past Family History Brother(s) Family Medical History: Diabetes Mellitus, Hyperlipidemia, Hypertension Additional Family Medical History / Comment(s): Patient states she has 1 brother with no major medical problems. Father Family Medical History: Diabetes Mellitus, Hyperlipidemia, Hypertension Additional Family Medical History / Comment(s): DAD IS 70 YEARS OLD. Patient states she does not have any contact with her father and does not know his medical history. Mother Family Medical History: CVA/TIA, Deep Vein Thrombosis (DVT) Additional Family Medical History / Comment(s): antiphospholipid antibody sy ndrome General Exam Limitations: no limitations General appearance: alert, in no apparent distress Head exam: Present: atraumatic, normocephalic, normal inspection Eye exam: Present: normal appearance, PERRL, EOMI Pupils: Present: normal accommodation ENT exam: Present: normal exam, normal oropharynx, mucous membranes moist, TM's normal bilaterally Neck exam: Present: normal inspection, full ROM Respiratory exam: Present: normal lung sounds bilaterally Cardiovascular Exam: Present: regular rate, normal rhythm, normal heart sounds GI/Abdominal exam: Present: soft, tenderness (Right upper quadrant tenderness. Negative Harris sign. Mild right upper flank region tenderness.), normal bowel sounds. Absent: distended, guarding, rebound, rigid, organomegaly, mass, bruit, pulsatile mass, hernia Extremities exam: Present: normal inspection, full ROM, normal capillary refill Back exam: Present: normal inspection, full ROM, CVA tenderness (R) Neurological exam: Present: alert, oriented X3 Psychiatric exam: Present: normal affect, normal mood Skin exam: Present: warm, dry, intact, normal color. Absent: rash Course Vital Signs 12/06/19 16:06 Temperature 100.5 F H Pulse Rate 118 H Respiratory 22 Rate Blood Pressure 140/84 O2 Sat by Pulse 97 Oximetry Medical Decision Making - Medical Decision Making Patient is a 39-year-old female presenting to the emergency department with a chief complaint of abdominal pain. On exam patient does have right upper quadrant abdominal tenderness that also radiates to the right flank region. Patient states the pain is related to oral intake and has been ongoing for the last 5 days after she was discharged from the hospital for sepsis. Negative Harris sign. CBC CMP and UA are unremarkable. She does not have any urinary or vaginal symptoms. Patient was given symptomatically control with some improvement. Patient vised to follow-up with primary care. She was also advised to focus more on liquid Because saw the foot appears to exacerbate her pain. She was also advised to avoid eating fatty foods. Patient advised to follow with a GI specialist as well. Strict return parameters were thoroughly discussed with patient was understanding and agreeable. Case discussed with physician. - Lab Data Result diagrams: 12/06/19 17:05 12/06/19 17:05 Lab Results 12/06/19 12/06/19 12/06/19 Range/Units 17: 17:05 17:05 WBC 9.5 (3.8-10.6) k/uL RBC 4.22 (3.80-5.40) m/uL Hgb 11.5 (11.4-16.0) gm/dL Hct 35.7 (34.0-46.0) % MCV 84.7 (80.0-100.0) fL MCH 27.2 (25.0-35.0) pg MCHC 32.2 (31.0-37.0) g/dL RDW 13.8 (11.5-15.5) % Plt Count 355 (150-450) k/uL Neutrophils % 76 % Lymphocytes % 12 % Monocytes % 5 % Eosinophils % 4 % Basophils % 1 % Neutrophils # 7.2 (1.3-7.7) k/uL Lymphocytes # 1.1 (1.0-4.8) k/uL Monocytes # 0.5 (0-1.0) k/uL Eosinophils # 0.4 (0-0.7) k/uL Basophils # 0.1 (0-0.2) k/uL Hypochromasia Slight Sodium 141 (137-145) mmol/L Potassium 4.0 (3.5-5.1) mmol/L Chloride 111 H (98-107) mmol/L Carbon Dioxide 19 L (22-30) mmol/L Anion Gap 11 mmol/L BUN 16 (7-17) mg/dL Creatinine 0.85 (0.52-1.04) mg/dL Est GFR (CKD-EPI)AfAm >90 (>60 ml/min/1.73 sqM) Est GFR (CKD-EPI)NonAf 88 (>60 ml/min/1.73 sqM) Glucose 129 H (74-99) mg/dL Calcium 9.6 (8.4-10.2) mg/dL Total Bilirubin 0.4 (0.2-1.3) mg/dL AST 20 (14-36) U/L ALT 18 (4-34) U/L Alkaline Phosphatase 81 (38-126) U/L Total Protein 7.1 (6.3-8.2) g/dL Albumin 4.4 (3.5-5.0) g/dL Amylase 37 (30-110) U/L Lipase 66 (23-300) U/L Urine Color Yellow Urine Appearance Clear (Clear) Urine pH 6.0 (5.0-8.0) Ur Specific [place] 1.025 (1.001-1.035) Urine Protein Negative (Negative) Urine Glucose (UA) Negative (Negative) Urine Ketones Negative (Negative) Urine Blood Negative (Negative) Urine Nitrite Negative (Negative) Urine Bilirubin Negative (Negative) Urine Urobilinogen <2.0 (<2.0) mg/dL Ur Leukocyte Esterase Negative (Negative) Disposition Clinical Impression: Abdominal pain, Nausea Disposition: HOME SELF-CARE Condition: Stable Instructions (If sedation given, give patient instructions): Abdominal Pain (ED) Additional Instructions: Please follow with a GI specialist. Avoid eating solid foods and fatty foods. Alternate between Tylenol and Motrin for pain control. Please return to emerge ncy department if symptoms worsen. Is patient prescribed a controlled substance at d/c from ED?: No Referrals: Julissa Montano III, MD [Primary Care Provider] - 1-2 days Time of Disposition: 18:21
[2019-12-06 17:30] LABS: Basophils # (A) 0.1 k/uL (0-0.2); Basophils % (A) 1 %; Eosinophils # (A) 0.4 k/uL (0-0.7); Eosinophils % (A) 4 %; HCT 35.7 % (34.0-46.0); HGB 11.5 gm/dL (11.4-16.0); Hypochromasia Slight; Lymphocytes # (A) 1.1 k/uL (1.0-4.8); Lymphocytes % (A) 12 %; MCH 27.2 pg (25.0-35.0); MCHC 32.2 g/dL (31.0-37.0); MCV 84.7 fL (80.0-100.0); Mean Platelet Volume 7.3; Monocytes # (A) 0.5 k/uL (0-1.0); Monocytes % (A) 5 %; Neutrophils # (A) 7.2 k/uL (1.3-7.7); Neutrophils % (A) 76 %; Platelet Count 355 k/uL (150-450); RBC 4.22 m/uL (3.80-5.40); RDW 13.8 % (11.5-15.5); WBC 9.5 k/uL (3.8-10.6)
[2019-12-06 17:31] LABS: Appearance,Urine Clear (Clear); Bilirubin,Urine Negative (Negative); Blood,Urine Negative (Negative); Color,Urine Yellow; Glucose,Urine (UA) Negative (Negative); Ketones,Urine Negative (Negative); Leukocyte Esterase,Urine Negative (Negative); Nitrite,Urine Negative (Negative); Protein,Urine Negative (Negative); Specific Gravity,Urine 1.025 (1.001-1.035); Urobilinogen,Urine <2.0 mg/dL (<2.0)
[2019-12-06 17:41] LABS: ALT 18 U/L (4-34); AST 20 U/L (14-36); African American GFR (CKD) >90 (>60 ml/min/1.73 sqM); Albumin 4.4 g/dL (3.5-5.0); Alkaline Phosphatase 81 U/L (38-126); Amylase 37 U/L (30-110); Anion Gap 11 mmol/L; Blood Urea Nitrogen 16 mg/dL (7-17); Calcium 9.6 mg/dL (8.4-10.2); Carbon Dioxide 19 mmol/L (22-30); Chloride 111 mmol/L (98-107); Glucose 129 mg/dL (74-99); Non-African American GFR(CKD) 88 (>60 ml/min/1.73 sqM); Sodium 141 mmol/L (137-145); Total Bilirubin 0.4 mg/dL (0.2-1.3); Total Protein 7.1 g/dL (6.3-8.2)
[2019-12-06 18:37] VITALS: BP 123/88; PULSE 101; RESP 18; TEMP 99.1
== END 2019-12-06 18:48 | disposition home or self-care (01) ==
LOC: EC 16:05
DX: R10.11 Right upper quadrant pain (principal); R11.0 Nausea; R10.811 Right upper quadrant abdominal tenderness; R50.9 Fever, unspecified; E11.9 Type 2 diabetes mellitus without complications; E07.9 Disorder of thyroid, unspecified; F31.9 Bipolar disorder, unspecified; Z79.890 Hormone replacement therapy; Z79.51 Long term (current) use of inhaled steroids; Z79.4 Long term (current) use of insulin; Z79.899 Other long term (current) drug therapy; Z88.8 Allergy status to other drugs, medicaments and biological substances; Z91.048 Other nonmedicinal substance allergy status; Z88.7 Allergy status to serum and vaccine; Z88.1 Allergy status to other antibiotic agents; Z91.010 Allergy to peanuts; Z88.2 Allergy status to sulfonamides; Z86.718 Personal history of other venous thrombosis and embolism; Z86.73 Personal history of transient ischemic attack (TIA), and cerebral infarction without residual deficits
CPT/HCPCS: 36415; 80053; 82150; 83690; 85025; 81003; 99284; 96374; 96361; 96372; J0500; J1642

== ENCOUNTER 2019-12-27 19:54 | Emergency (ER) | payer MEDICARE, OTHER ==
[2019-12-27] MEDS ORDERED: IBUPROFEN 600 MG TAB PO STA (20:41)
[2019-12-27] MEDS ORDERED: ACETAMINOPHEN TAB 500 MG TAB PO STA (20:41)
[2019-12-27] MEDS ORDERED: SODIUM CHLORIDE 0.9% 1,000 ML IV STA ×2 (20:41)
--- NOTE | 2019-12-27 20:41 | ED ---
Fever HPI - General Chief Complaint: Fever Stated Complaint: sent by dr/fever/headache Time Seen by Provider: 12/27/19 20:09 Source: patient, RN notes reviewed, old records reviewed Mode of arrival: wheelchair Limitations: physical limitation - History of Present Illness Initial Comments: This is a 39-year-old female to the ER for evaluation patient presents today for evaluation regards to fever. Positive nausea and no vomiting occasional abdominal pain. No known sick contacts recent inpatient admission for sepsis the patient doesn't know cause infection. No otherwise no recent travel history she had again have him patient osculation no cough no congestion or shortness of breath MD Complaint: fever, weakness -: days(s) Temperature Source: subjective Context: sick contacts, multiple patients with similar symptoms, recent antibiotic use (Recent inpatient sepsis admission) Associated Symptoms: chills, myalgias, nasal congestion Treatments Prior to Arrival: none - Related Data Home Medications Medication Instructions Recorded Confirmed tiZANidine [Zanaflex] 4 mg PO BID@0900,1500 12/04/18 11/30/19 Levothyroxine Sodium [Synthroid] 100 mcg PO DAILY 01/16/19 11/30/19 Cyanocobalamin (Vitamin B-12) 2,000 mcg PO DAILY 01/22/19 11/30/19 [Vitamin B-12] traMADol HCL [Ultram] 50 mg PO BID PRN 06/28/19 11/30/19 Methenamine Hippurate 1 gm PO BID 07/12/19 11/30/19 Ergocalciferol [Vitamin D2 50,000 unit PO TAYLOR 10/08/19 11/30/19 (DRISDOL)] Fluticasone Nasal [place] [Flonase 1 spray EA NOSTRIL HS 10/08/19 11/30/19 Nasal [place]] Insulin Aspart [NovoLOG Flexpen] See Protocol SQ ACHS 10/08/19 11/30/19 Mirabegron [Myrbetriq] 25 mg PO DAILY 10/08/19 11/30/19 Acetaminophen Tab [Tylenol] 650 mg PO Q6H PRN 11/29/19 11/30/19 [place] Carbonate 600 mg PO HS 11/29/19 11/30/19 Prochlorperazine Suppository 25 mg RECTAL Q8H PRN 11/29/19 11/30/19 [Compazine] Topiramate [Topamax] 50 mg PO DAILY 11/29/19 11/30/19 Promethazine [Phenergan] 25 mg PO Q6H PRN 11/30/19 11/30/19 Previous Rx's Medication Instructions Recorded Modafinil [Provigil] 200 mg PO DAILY tab 03/07/19 Fenofibrate [Lofibra] 160 mg PO HS tab 10/17/19 Gabapentin [Neurontin] 400 mg PO TID cap 10/17/19 Metoclopramide [Reglan] 10 mg PO ACHS tab 10/17/19 Metoprolol Succinate (ER) [Toprol 50 mg PO DAILY tab.er.24h 10/17/19 XL] Ondansetron [Zofran] 8 mg PO Q6H PRN tab 10/17/19 Rivaroxaban [Xarelto] 20 mg PO HS tab 10/17/19 Trimethoprim [Trimpex] 100 mg PO HS tab 10/17/19 busPIRone HCL [Buspar] 30 mg PO BID 28 Days tab 10/17/19 cloNIDine HCL [Catapres] 0.1 mg PO HS tab 10/17/19 tiZANidine [Zanaflex] 8 mg PO HS tab 10/17/19 traZODone HCL [Desyrel] 200 mg PO HS #28 tab 10/17/19 Cefuroxime Axetil [Ceftin] 500 mg PO BID 3 Days #6 tab 12/02/19 Dicyclomine [Bentyl] 20 mg PO QID PRN #8 tab 12/04/19 Insulin Detemir (Levemir) [Levemir] 40 unit SQ HS #1 vial 12/04/19 Insulin Regular [humuLIN R] 5 unit SQ AC-TID #1 vial 12/04/19 Pantoprazole [Protonix] 40 mg PO AC-BRKFST #30 tablet. 12/04/19 Allergies Allergy/AdvReac Type Severity Reaction Status Date / Time barium sulfate Allergy Anaphylaxis Verified 12/27/19 20:00 doxepin [Doxepin] Allergy Anaphylaxis Verified 12/27/19 20:00 ephedrine Allergy Unknown Verified 12/27/19 20:00 ertapenem [From Invanz] Allergy Rash/Hives Verified 12/27/19 20:00 influenza virus vaccine, Allergy severe Verified 12/27/19 20:00 specific swelling [Influenza Virus and hives Vacc,Specific] peanut oil AdvReac Severe Nausea & Verified 12/27/19 20:00 Vomiting,itching doxycycline AdvReac Nausea & Verified 12/27/19 20:00 Vomiting & Diarrhea peanut AdvReac Nausea & Verified 12/27/19 20:00 Vomiting Pertussis Vaccines AdvReac fever/seizu Verified 12/27/19 20:00 re pseudoephedrine AdvReac Chest Pain Verified 12/27/19 20:00 pseudoephedrine HCl AdvReac Chest Pain Verified 12/27/19 20:00 [From Sudafed] sulfamethoxazole AdvReac Nausea & Verified 12/27/19 20:00 [From Bactrim] Vomiting trimethoprim [From Bactrim] AdvReac Nausea & Verified 12/27/19 20:00 Vomiting Review of Systems ROS Statement: Those systems with pertinent positive or pertinent negative responses have been documented in the HPI. ROS Other: All systems not noted in ROS Statement are negative. Past Medical History Past Medical History: Chest Pain / Angina, CVA/TIA, Diabetes Mellitus, Deep Vein Thrombosis (DVT), Neurologic Disorder, Syncope, Thyroid Disorder Additional Past Medical History / Comment(s): STROKE LIKE EPISODE D/T MITOCHRONDIAL DISEASE HAD WORK UP DONE AT [facility]. Dysautonomia-progressive neurological disorder, lupus/LUPUS ANTICOAGULANTS, ana maria's disease, lymphedema Lt arm d/t DVTs , v-tach, pituitary microadenoma. patent foramen ovale, narcolepsy, gastropareis, IDDM type II, falls, orthostatic h ypotension/syncope, migraines with hemiplegia, pernicious anemia, polycystic ovarian syndrome, neuropathy bilateral legs/feet - mild, uti's. History of Any Multi-Drug Resistant Organisms: ESBL, MRSA Date of last positivie culture/infection: 03/09/17 MRSA/ 05/17/18 ESBL MDRO Source:: MRSA LEFT ARM,/ESBL URINE ECOLI Past Surgical History: Uterine Ablation Additional Past Surgical History / Comment(s): colonscopy/egd, angie, PORT-A -CATH INSERTION 04-28-18 Past Anesthesia/Blood Transfusion Reactions: No Reported Reaction Additional Past Anesthesia/Blood Transfusion Reaction / Comment(s): patient states "It takes a lot of anesthesia for my body to react". Pt has received blood in past without reaction. Past Psychological History: Bipolar, Depression Smoking Status: Never smoker Past Alcohol Use History: None Reported Past Drug Use History: None Reported - Past Family History Brother(s) Family Medical History: Diabetes Mellitus, Hyperlipidemia, Hypertension Additional Family Medical History / Comment(s): Patient states she has 1 brother with no major medical problems. Father Family Medical History: Diabetes Mellitus, Hyperlipidemia, Hypertension Additional Family Medical History / Comment(s): DAD IS 70 YEARS OLD. Patient states she does not have any contact with her father and does not know his medical history. Mother Family Medical History: CVA/TIA, Deep Vein Thrombosis (DVT) Additional Family Medical History / Comment(s): antiphospholipid antibody syndrome General Exam Limitations: physical limitation General appearance: alert, in no apparent distress Head exam: Present: atraumatic, normocephalic, normal inspection Eye exam: Present: normal appearance, PERRL, EOMI. Absent: scleral icterus, co njunctival injection, periorbital swelling ENT exam: Present: normal exam, mucous membranes moist Neck exam: Present: normal inspection. Absent: tenderness, meningismus, lymphadenopathy Respiratory exam: Present: normal lung sounds bilaterally. Absent: respiratory distress, wheezes, rales, rhonchi, stridor Cardiovascular Exam: Present: normal rhythm, tachycardia, normal heart sounds. Absent: systolic murmur, diastolic murmur, rubs, gallop, clicks GI/Abdominal exam: Present: soft, normal bowel sounds. Absent: distended, tenderness, guarding, rebound, rigid Extremities exam: Present: normal inspection, full ROM, normal capillary refill. Absent: tenderness, pedal edema, joint swelling, calf tenderness Back exam: Present: normal inspection Neurological exam: Present: alert, oriented X3, CN II-XII intact Psychiatric exam: Present: normal affect, normal mood Skin exam: Present: warm, dry, intact, normal color. Absent: rash Course Vital Signs 12/27/19 12/27/19 12/27/19 19:58 22:00 23:00 Temperature 101.0 F H 99.2 F 99 F Pulse Rate 125 H 100 92 Respiratory 20 18 18 Rate Blood Pressure 148/101 123/79 127/83 O2 Sat by Pulse 94 L 97 96 Oximetry - Reevaluation(s) Reevaluation #1: 12/27/19 20:41 Medical record is reviewed Reevaluation #2: 12/27/19 23:29 Patient still feels a little other not feeling great will refer inpatient admission - Consultations Consultation #1: spoke w LOUIS jorge for admission Medical Decision Making - Medical Decision Making 31 female DF for evaluation patient has a for evaluation of fever possible urinary tract infection and leukocytosis lament for IV antibiotics - Lab Data Result diagrams: 12/27/19 21:22 12/27/19 21:22 Lab Results 12/27/19 12/27/19 12/27/19 Range/Units 20:24 21:22 21:22 WBC 13.5 H (3.8-10.6) k/uL RBC 4.22 (3.80-5.40) m/uL Hgb 11.1 L (11.4-16.0) gm/dL Hct 35.6 (34.0-46.0) % MCV 84.3 (80.0-100.0) fL MCH 26.3 (25.0-35.0) pg MCHC 31.2 (31.0-37.0) g/dL RDW 14.8 (11.5-15.5) % Plt Count 469 H (150-450) k/uL Neutrophils % 80 % Lymphocytes % 13 % Monocytes % 4 % Eosinophils % 1 % Basophils % 1 % Neutrophils # 10.8 H (1.3-7.7) k/uL Lymphocytes # 1.7 (1.0-4.8) k/uL Monocytes # 0.6 (0-1.0) k/uL Eosinophils # 0.2 (0-0.7) k/uL Basophils # 0.1 (0-0.2) k/uL Sodium 139 (137-145) mmol/L Potassium 4.0 (3.5-5.1) mmol/L Chloride 106 (98-107) mmol/L Carbon Dioxide 20 L (22-30) mmol/L Anion Gap 13 mmol/L BUN 12 (7-17) mg/dL Creatinine 0.65 (0.52-1.04) mg/dL Est GFR (CKD-EPI)AfAm >90 (>60 ml/min/1.73 sqM) Est GFR (CKD-EPI)NonAf >90 (>60 ml/min/1.73 sqM) Glucose 133 H (74-99) mg/dL Plasma Lactic Acid Joce (0.7-2.0) mmol/L Calcium 9.7 (8.4-10.2) mg/dL Total Bilirubin 0.3 (0.2-1.3) mg/dL AST 19 (14-36) U/L ALT 15 (4-34) U/L Alkaline Phosphatase 67 (38-126) U/L Total Protein 6.9 (6.3-8.2) g/dL Albumin 4.2 (3.5-5.0) g/dL Urine Color Urine Appearance (Clear) Urine pH (5.0-8.0) Ur Specific [place] (1.001-1.035) Urine Protein (Negative) Urine Glucose (UA) (Negative) Urine Ketones (Negative) Urine Blood (Negative) Urine Nitrite (Negative) Urine Bilirubin (Negative) Urine Urobilinogen (<2.0) mg/dL Ur Leukocyte Esterase (Negative) Urine RBC (0-5) /hpf Urine WBC (0-5) /hpf Ur Squamous Epith Cells (0-4) /hpf Urine Bacteria (None) /hpf Hyaline Casts (0-2) /lpf Urine Mucus (None) /hpf Influenza Type A RNA Not Detected (Not Detectd) Influenza Type B (PCR) Not Detected (Not Detectd) 12/27/19 12/27/19 Range/Units 21:22 21:22 WBC (3.8-10.6) k/uL RBC (3.80-5.40) m/uL Hgb (11.4-16.0) gm/dL Hct (34.0-46.0) % MCV (80.0-100.0) fL MCH (25.0-35.0) pg MCHC (31.0-37.0) g/dL RDW (11.5-15.5) % Plt Count (150-450) k/uL Neutrophils % % Lymphocytes % % Monocytes % % Eosinophils % % Basophils % % Neutrophils # (1.3-7.7) k/uL Lymphocytes # (1.0-4.8) k/uL Monocytes # (0-1.0) k/uL Eosinophils # (0-0.7) k/uL Basophils # (0-0.2) k/uL Sodium (137-145) mmol/L Potassium (3.5-5.1) mmol/L Chloride (98-107) mmol/L Carbon Dioxide (22-30) mmol/L Anion Gap mmol/L BUN (7-17) mg/dL Creatinine (0.52-1.04) mg/dL Est GFR (CKD-EPI)AfAm (>60 ml/min/1.73 sqM) Est GFR (CKD-EPI)NonAf (>60 ml/min/1.73 sqM) Glucose (74-99) mg/dL Plasma Lactic Acid Joce 1.7 (0.7-2.0) mmol/L Calcium (8.4-10.2) mg/dL Total Bilirubin (0.2-1.3) mg/dL AST (14-36) U/L ALT (4-34) U/L Alkaline Phosphatase (38-126) U/L Total Protein (6.3-8.2) g/dL Albumin (3.5-5.0) g/dL Urine Color Yellow Urine Appearance Cloudy H (Clear) Urine pH 5.0 (5.0-8.0) Ur Specific [place] 1.024 (1.001-1.035) Urine Protein Trace H (Negative) Urine Glucose (UA) Negative (Negative) Urine Ketones Negative (Negative) Urine Blood Negative (Negative) Urine Nitrite Negative (Negative) Urine Bilirubin Negative (Negative) Urine Urobilinogen <2.0 (<2.0) mg/dL Ur Leukocyte Esterase Moderate H (Negative) Urine RBC 2 (0-5) /hpf Urine WBC 15 H (0-5) /hpf Ur Squamous Epith Cells 4 (0-4) /hpf Urine Bacteria Moderate H (None) /hpf Hyaline Casts 3 H (0-2) /lpf Urine Mucus Rare H (None) /hpf Influenza Type A RNA (Not Detectd) Influenza Type B (PCR) (Not Detectd) - Radiology Data Radiology results: report reviewed (Chest x-ray is negative for acute disease), image reviewed Disposition Clinical Impression: Dysautonomia, Fever, Urinary tract infection Disposition: ADMITTED IP TO THIS HOSP Condition: Good Is patient prescribed a controlled substance at d/c from ED?: No Referrals: Julissa Montano III, MD [Primary Care Provider] - 1-2 days
--- NOTE | 2019-12-27 21:47 | XR ---
EXAMINATION: XR chest 2V DATE AND TIME: 12/27/2019 9:37 PM CLINICAL INDICATION: PHH; cough TECHNIQUE: Departmental protocol COMPARISON: 11/29/2019 FINDINGS: Right IJ catheter tip superimposed over the distal SVC. The lungs are clear. The pleural spaces are negative. The cardiac silhouette is not enlarged. The remainder of the mediastinal silhouette is unremarkable. The skeletal structures and soft tissues are negative for acute findings. IMPRESSION: NO ACUTE PROCESS.
[2019-12-27 22:07] LABS: Basophils # (A) 0.1 k/uL (0-0.2); Basophils % (A) 1 %; Eosinophils # (A) 0.2 k/uL (0-0.7); Eosinophils % (A) 1 %; HCT 35.6 % (34.0-46.0); HGB 11.1 gm/dL (11.4-16.0); Lymphocytes # (A) 1.7 k/uL (1.0-4.8); Lymphocytes % (A) 13 %; MCH 26.3 pg (25.0-35.0); MCHC 31.2 g/dL (31.0-37.0); MCV 84.3 fL (80.0-100.0); Mean Platelet Volume 7.5; Monocytes # (A) 0.6 k/uL (0-1.0); Monocytes % (A) 4 %; Neutrophils # (A) 10.8 k/uL (1.3-7.7); Neutrophils % (A) 80 %; Platelet Count 469 k/uL (150-450); RBC 4.22 m/uL (3.80-5.40); RDW 14.8 % (11.5-15.5); WBC 13.5 k/uL (3.8-10.6)
[2019-12-27 22:08] LABS: ALT 15 U/L (4-34); AST 19 U/L (14-36); African American GFR (CKD) >90 (>60 ml/min/1.73 sqM); Albumin 4.2 g/dL (3.5-5.0); Alkaline Phosphatase 67 U/L (38-126); Anion Gap 13 mmol/L; Blood Urea Nitrogen 12 mg/dL (7-17); Calcium 9.7 mg/dL (8.4-10.2); Carbon Dioxide 20 mmol/L (22-30); Chloride 106 mmol/L (98-107); Glucose 133 mg/dL (74-99); Non-African American GFR(CKD) >90 (>60 ml/min/1.73 sqM); Sodium 139 mmol/L (137-145); Total Bilirubin 0.3 mg/dL (0.2-1.3); Total Protein 6.9 g/dL (6.3-8.2)
[2019-12-27 22:16] LABS: Appearance,Urine Cloudy (Clear); Bacteria,Urine Moderate /hpf; Bilirubin,Urine Negative (Negative); Blood,Urine Negative (Negative); Color,Urine Yellow; Glucose,Urine (UA) Negative (Negative); Hyaline Casts,Urine 3 /lpf (0-2); Ketones,Urine Negative (Negative); Leukocyte Esterase,Urine Moderate (Negative); Mucus,Urine Rare /hpf; Nitrite,Urine Negative (Negative); Protein,Urine Trace (Negative); RBC,Urine 2 /hpf (0-5); Specific Gravity,Urine 1.024 (1.001-1.035); Squamous Epithelial Cell,Urine 4 /hpf (0-4); Urobilinogen,Urine <2.0 mg/dL (<2.0); WBC,Urine 15 /hpf (0-5)
[2019-12-27 22:27] VITALS: RESP 18
[2019-12-27 23:06] VITALS: BP 127/83; PULSE 92; TEMP 99
[2019-12-27] MEDS ORDERED: PIPERACILLIN-TAZOBACTAM 3.375 GM in SODIUM CHLORIDE 0.9% 100 ML IVPB STA (23:27)
[2019-12-27] MEDS ORDERED: PIPERACILLIN-TAZOBACTAM 3.375 GM in SODIUM CHLORIDE 0.9% 100 ML IVPB ONE (23:30)
[2019-12-27] MEDS ORDERED: SODIUM CHLORIDE 0.9% 1,000 ML IV SCH (23:30)
[2019-12-27] MEDS: SODIUM CHLORIDE 0.9% 500 ML 500 ML IV SCH (23:49)
[2019-12-28] MEDS: SODIUM CHLORIDE 0.9% 500 ML 500 ML IV SCH (00:28)
[2019-12-28] MEDS ORDERED: PIPERACILLIN-TAZOBACTAM 3.375 GM in SODIUM CHLORIDE 0.9% 100 ML IVPB SCH ×3 (08:00)
== END 2019-12-28 01:06 | disposition other institution (70) ==
LOC: EC 19:54 → UNDOADMOB 23:27 → 4SSUR 23:27 → 6PED 23:27
DX: N39.0 Urinary tract infection, site not specified (principal); G90.1 Familial dysautonomia [Riley-Day]; D68.62 Lupus anticoagulant syndrome; E11.42 Type 2 diabetes mellitus with diabetic polyneuropathy; E11.43 Type 2 diabetes mellitus with diabetic autonomic (poly)neuropathy; K31.84 Gastroparesis; E06.3 Autoimmune thyroiditis; F31.9 Bipolar disorder, unspecified; Z88.1 Allergy status to other antibiotic agents; Z88.2 Allergy status to sulfonamides; Z88.7 Allergy status to serum and vaccine; Z88.8 Allergy status to other drugs, medicaments and biological substances; Z91.010 Allergy to peanuts; Z91.048 Other nonmedicinal substance allergy status; Z79.4 Long term (current) use of insulin; Z79.51 Long term (current) use of inhaled steroids; Z79.890 Hormone replacement therapy; Z79.899 Other long term (current) drug therapy; Z86.14 Personal history of Methicillin resistant Staphylococcus aureus infection; Z86.69 Personal history of other diseases of the nervous system and sense organs; Z53.8 Procedure and treatment not carried out for other reasons
CPT/HCPCS: 36415; 93005; 80053; 83605; 85025; 81001; 87040; 87086; 87502; 71046; 99285; 96365; 96375; 96361 ×2; J2543; J1642

== ENCOUNTER 2019-12-28 14:25 | Inpatient (IN) | payer MEDICARE, OTHER ==
[2019-12-28] MEDS ORDERED: SODIUM CHLORIDE 0.9% 1,000 ML IV STA (14:46)
--- NOTE | 2019-12-28 15:47 | ED ---
Female Urogenital HPI - General Chief complaint: Urogenital Stated complaint: UTI Time Seen by Provider: 12/28/19 14:31 Source: patient Mode of arrival: wheelchair Limitations: no limitations - History of Present Illness Initial comments: 39-year-old female history of mitochondrial disease,neurogenic bladder, DM, recurrent urinary tract infections presents emergency department today for admission. She states that she was offered admission yesterday however they were holding in the emergency department and she did not want to stay. She states that she feels as though her heart rate has been increased more than her usual baseline and she is felt as though she has had a fever. Her last dose of Tylenol was at 1 PM. Patient denies flank pain or abdominal pain. Admits to general malaise similar to when she has had UTI in the past. Patient denies history of kidney stones or severe flank pain, hematuria. Patient denies chest pain, pain with inspiration, hemoptysis. Patient upon arrival does not appears overtly toxic. - Related Data Home Medications Medication Instructions Recorded Confirmed tiZANidine [Zanaflex] 4 mg PO BID@0900,1500 12/04/18 11/30/19 Levothyroxine Sodium [Synthroid] 100 mcg PO DAILY 01/16/19 11/30/19 Cyanocobalamin (Vitamin B-12) 2,000 mcg PO DAILY 01/22/19 11/30/19 [Vitamin B-12] traMADol HCL [Ultram] 50 mg PO BID PRN 06/28/19 11/30/19 Methenamine Hippurate 1 gm PO BID 07/12/19 11/30/19 Ergocalciferol [Vitamin D2 50,000 unit PO TAYLOR 10/08/19 11/30/19 (DRISDOL)] Fluticasone Nasal [place] [Flonase 1 spray EA NOSTRIL HS 10/08/19 11/30/19 Nasal [place]] Insulin Aspart [NovoLOG Flexpen] See Protocol SQ ACHS 10/08/19 11/30/19 Mirabegron [Myrbetriq] 25 mg PO DAILY 10/08/19 11/30/19 Acetaminophen Tab [Tylenol] 650 mg PO Q6H PRN 11/29/19 11/30/19 [place] Carbonate 600 mg PO HS 11/29/19 11/30/19 Prochlorperazine Suppository 25 mg RECTAL Q8H PRN 11/29/19 11/30/19 [Compazine] Topiramate [Topamax] 50 mg PO DAILY 11/29/19 11/30/19 Promethazine [Phenergan] 25 mg PO Q6H PRN 11/30/19 11/30/19 Previous Rx's Medication Instructions Recorded Modafinil [Provigil] 200 mg PO DAILY tab 03/07/19 Fenofibrate [Lofibra] 160 mg PO HS tab 10/17/19 Gabapentin [Neurontin] 400 mg PO TID cap 10/17/19 Metoclopramide [Reglan] 10 mg PO ACHS tab 10/17/19 Metoprolol Succinate (ER) [Toprol 50 mg PO DAILY tab.er.24h 10/17/19 XL] Ondansetron [Zofran] 8 mg PO Q6H PRN tab 10/17/19 Rivaroxaban [Xarelto] 20 mg PO HS tab 10/17/19 Trimethoprim [Trimpex] 100 mg PO HS tab 10/17/19 busPIRone HCL [Buspar] 30 mg PO BID 28 Days tab 10/17/19 cloNIDine HCL [Catapres] 0.1 mg PO HS tab 10/17/19 tiZANidine [Zanaflex] 8 mg PO HS tab 10/17/19 traZODone HCL [Desyrel] 200 mg PO HS #28 tab 10/17/19 Cefuroxime Axetil [Ceftin] 500 mg PO BID 3 Days #6 tab 12/02/19 Dicyclomine [Bentyl] 20 mg PO QID PRN #8 tab 12/04/19 Insulin Detemir (Levemir) [Levemir] 40 unit SQ HS #1 vial 12/04/19 Insulin Regular [humuLIN R] 5 unit SQ AC-TID #1 vial 12/04/19 Pantoprazole [Protonix] 40 mg PO AC-BRKFST #30 tablet. 12/04/19 Amoxicillin/Potassium Clav 1 tab PO Q12HR #20 tab 12/28/19 [Augmentin 875-125 Tablet] Allergies Allergy/AdvReac Type Severity Reaction Status Date / Time barium sulfate Allergy Anaphylaxis Verified 12/28/19 14:28 doxepin [Doxepin] Allergy Anaphylaxis Verified 12/28/19 14:28 ephedrine Allergy Unknown Verified 12/28/19 14:28 ertapenem [From Invanz] Allergy Rash/Hives Verified 12/28/19 14:28 influenza virus vaccine, Allergy severe Verified 12/28/19 14:28 specific swelling [Influenza Virus and hives Vacc,Specific] peanut oil AdvReac Severe Nausea & Verified 12/28/19 14:28 Vomiting,itching doxycycline AdvReac Nausea & Verified 12/28/19 14:28 Vomiting & Diarrhea peanut AdvReac Nausea & Verified 12/28/19 14:28 Vomiting Pertussis Vaccines AdvReac fever/seizu Verified 12/28/19 14:28 re pseudoephedrine AdvReac Chest Pain Verified 12/28/19 14:28 pseudoephedrine HCl AdvReac Chest Pain Verified 12/28/19 14:28 [From Sudafed] sulfamethoxazole AdvReac Nausea & Verified 12/28/19 14:28 [From Bactrim] Vomiting trimethoprim [From Bactrim] AdvReac Nausea & Verified 12/28/19 14:28 Vomiting Review of Systems ROS Statement: Those systems with pertinent positive or pertinent negative responses have been documented in the HPI. ROS Other: All systems not noted in ROS Statement are negative. Past Medical History Past Medical History: Chest Pain / Angina, CVA/TIA, Diabetes Mellitus, Deep Vein Thrombosis (DVT), Neurologic Disorder, Syncope, Thyroid Disorder Additional Past Medical History / Comment(s): STROKE LIKE EPISODE D/T MITOCHRONDIAL DISEASE HAD WORK UP DONE AT [facility]. Dysautonomia-progressive neurological disorder, lupus/LUPUS ANTICOAGULANTS, ana maria's disease, lymphedema Lt arm d/t DVTs , v-tach, pituitary microadenoma. patent foramen ovale, narcolepsy, gastropareis, IDDM type II, falls, orthostatic hypoten desi/syncope, migraines with hemiplegia, pernicious anemia, polycystic ovarian syndrome, neuropathy bilateral legs/feet - mild, uti's. History of Any Multi-Drug Resistant Organisms: ESBL, MRSA Date of last positivie culture/infection: 03/09/17 MRSA/ 05/17/18 ESBL MDRO Source:: MRSA LEFT ARM,/ESBL URINE ECOLI Past Surgical History: Uterine Ablation Additional Past Surgical History / Comment(s): colonscopy/egd, angie, PORT-A -CATH INSERTION 6-8-18 Past Anesthesia/Blood Transfusion Reactions: No Reported Reaction Additional Past Anesthesia/Blood Transfusion Reaction / Comment(s): patient states "It takes a lot of anesthesia for my body to react". Pt has received blood in past without reaction. Past Psychological History: Bipolar, Depression Smoking Status: Never smoker Past Alcohol Use History: None Reported Past Drug Use History: None Reported - Past Family History Brother(s) Family Medical History: Diabetes Mellitus, Hyperlipidemia, Hypertension Additional Family Medical History / Comment(s): Patient states she has 1 brother with no major medical problems. Father Family Medical History: Diabetes Mellitus, Hyperlipidemia, Hypertension Additional Family Medical History / Comment(s): DAD IS 70 YEARS OLD. Patient states she does not have any contact with her father and does not know his medical history. Mother Family Medical History: CVA/TIA, Deep Vein Thrombosis (DVT) Additional Family Medical History / Comment(s): antiphospholipid antibody syndrome General Exam - General Exam Comments Initial Comments: General: The patient is awake and alert, in no distress Eye: +3 mm pupils are equal, round and reactive to light, extra-ocular movements are intact. No nystagmus. There is normal conjunctiva bilaterally. No signs of icterus. Ears, nose, mouth and throat: There are moist mucous membranes and no oral lesions. Neck: The neck is supple, there is no tenderness or JVD. Cardiovascular: There is a regular rate and rhythm. No murmur, rub or gallop is appreciated. Respiratory: Lungs are clear to auscultation, respirations are non-labored, breath sounds are equal. No wheezes, stridor, rales, or rhonchi. No CVA tenderness. Gastrointestinal: Soft, non-distended, non-tender abdomen without masses or organomegaly noted. There is no rebound or guarding present. Musculoskeletal: Normal ROM, no tenderness. Strength 5/5. Sensation intact. Radial pulses equal bilaterally 2+. Neurological: A&O x 3. CN II-XII intact grossly, There are no obvious motor or sensory deficits. Coordination appears grossly intact. Speech is normal. Skin: Skin is warm and dry and no rashes or lesions are noted. No LE edema. Psychiatric: Cooperative, appropriate mood & affect, normal judgment. Limitations: no limitations Course Vital Signs 12/28/19 12/28/19 14:26 16:41 Temperature 98.4 F Pulse Rate 105 H 89 Respiratory 18 16 Rate Blood Pressure 135/77 138/76 O2 Sat by Pulse 97 96 Oximetry Medical Decision Making - Medical Decision Making 39-year-old female with history of recurrent urinary tract infections and neurogenic bladder presenting for chief complaint of persistent malaise constitutional symptoms urgency with elevation of HR, chills (suspected fevers), this is concerning as patient has history of urosepsis-patient taking Tylenol last dose at 1 PM. Patient initiated on zosyn in the ER. Patient blood cultures pending. IVF running. Antipyretics ordered PRN. Patient will be admitted for further evaluation and treatment. Dr. Grier is agreeable to admission and care plan. - Lab Data Result diagrams: 12/28/19 15:32 12/28/19 15:32 Lab Results 12/28/19 12/28/19 12/28/19 Range/Units 15:32 15:32 15:32 WBC 12.8 H (3.8-10.6) k/uL RBC 3.85 (3.80-5.40) m/uL Hgb 10.3 L (11.4-16.0) gm/dL Hct 32.6 L (34.0-46.0) % MCV 84.8 (80.0-100.0) fL MCH 26.8 (25.0-35.0) pg MCHC 31.6 (31.0-37.0) g/dL RDW 14.4 (11.5-15.5) % Plt Count 434 (150-450) k/uL Neutrophils % 81 % Lymphocytes % 11 % Monocytes % 4 % Eosinophils % 1 % Basophils % 1 % Neutrophils # 10.5 H (1.3-7.7) k/uL Lymphocytes # 1.4 (1.0-4.8) k/uL Monocytes # 0.6 (0-1.0) k/uL Eosinophils # 0.1 (0-0.7) k/uL Basophils # 0.1 (0-0.2) k/uL Hypochromasia Slight Sodium 139 (137-145) mmol/L Potassium 4.1 (3.5-5.1) mmol/L Chloride 107 (98-107) mmol/L Carbon Dioxide 21 L (22-30) mmol/L Anion Gap 11 mmol/L BUN 11 (7-17) mg/dL Creatinine 0.61 (0.52-1.04) mg/dL Est GFR (CKD-EPI)AfAm >90 (>60 ml/min/1.73 sqM) Est GFR (CKD-EPI)NonAf >90 (>60 ml/min/1.73 sqM) Glucose 104 H (74-99) mg/dL Plasma Lactic Acid Joce 1.5 (0.7-2.0) mmol/L Calcium 9.5 (8.4-10.2) mg/dL Total Bilirubin 0.3 (0.2-1.3) mg/dL AST 23 (14-36) U/L ALT 14 (4-34) U/L Alkaline Phosphatase 63 (38-126) U/L Total Protein 6.6 (6.3-8.2) g/dL Albumin 3.9 (3.5-5.0) g/dL Urine Color Urine Appearance (Clear) Urine pH (5.0-8.0) Ur Specific [place] (1.001-1.035) Urine Protein (Negative) Urine Glucose (UA) (Negative) Urine Ketones (Negative) Urine Blood (Negative) Urine Nitrite (Negative) Urine Bilirubin (Negative) Urine Urobilinogen (<2.0) mg/dL Ur Leukocyte Esterase (Negative) 12/28/19 Range/Units 15:50 WBC (3.8-10.6) k/uL RBC (3.80-5.40) m/uL Hgb (11.4-16.0) gm/dL Hct (34.0-46.0) % MCV (80.0-100.0) fL MCH (25.0-35.0) pg MCHC (31.0-37.0) g/dL RDW (11.5-15.5) % Plt Count (150-450) k/uL Neutrophils % % Lymphocytes % % Monocytes % % Eosinophils % % Basophils % % Neutrophils # (1.3-7.7) k/uL Lymphocytes # (1.0-4.8) k/uL Monocytes # (0-1.0) k/uL Eosinophils # (0-0.7) k/uL Basophils # (0-0.2) k/uL Hypochromasia Sodium (137-145) mmol/L Potassium (3.5-5.1) mmol/L Chloride (98-107) mmol/L Carbon Dioxide (22-30) mmol/L Anion Gap mmol/L BUN (7-17) mg/dL Creatinine (0.52-1.04) mg/dL Est GFR (CKD-EPI)AfAm (>60 ml/min/1.73 sqM) Est GFR (CKD-EPI)NonAf (>60 ml/min/1.73 sqM) Glucose (74-99) mg/dL Plasma Lactic Acid Joce (0.7-2.0) mmol/L Calcium (8.4-10.2) mg/dL Total Bilirubin (0.2-1.3) mg/dL AST (14-36) U/L ALT (4-34) U/L Alkaline Phosphatase (38-126) U/L Total Protein (6.3-8.2) g/dL Albumin (3.5-5.0) g/dL Urine Color Dark Brown Urine Appearance Clear (Clear) Urine pH 5.5 (5.0-8.0) Ur Specific [place] 1.030 (1.001-1.035) Urine Protein Trace H (Negative) Urine Glucose (UA) Negative (Negative) Urine Ketones Negative (Negative) Urine Blood Negative (Negative) Urine Nitrite Negative (Negative) Urine Bilirubin Negative (Negative) Urine Urobilinogen <2.0 (<2.0) mg/dL Ur Leukocyte Esterase Negative (Negative) Disposition Clinical Impression: UTI (urinary tract infection), Leukocytosis, Fever and chills Disposition: ADMITTED IP TO THIS [facility] Condition: Stable Is patient prescribed a controlled substance at d/c from ED?: No Referrals: Julissa Montano III, MD [Primary Care Provider] - 1-2 days Time of Disposition: 16:59 Decision to Admit Reason: Admit from EC Decision Date: 12/28/19 Decision Time: 16:59
[2019-12-28 16:10] LABS: Appearance,Urine Clear (Clear); Bilirubin,Urine Negative (Negative); Blood,Urine Negative (Negative); Color,Urine Dark Brown; Glucose,Urine (UA) Negative (Negative); Ketones,Urine Negative (Negative); Leukocyte Esterase,Urine Negative (Negative); Nitrite,Urine Negative (Negative); PH, Urine 5.5 (5.0-8.0); Protein,Urine Trace (Negative); Urobilinogen,Urine <2.0 mg/dL (<2.0)
[2019-12-28 16:13] LABS: Basophils # (A) 0.1 k/uL (0-0.2); Basophils % (A) 1 %; Eosinophils # (A) 0.1 k/uL (0-0.7); Eosinophils % (A) 1 %; HCT 32.6 % (34.0-46.0); HGB 10.3 gm/dL (11.4-16.0); Hypochromasia Slight; Lymphocytes # (A) 1.4 k/uL (1.0-4.8); Lymphocytes % (A) 11 %; MCH 26.8 pg (25.0-35.0); MCHC 31.6 g/dL (31.0-37.0); MCV 84.8 fL (80.0-100.0); Mean Platelet Volume 7.7; Monocytes # (A) 0.6 k/uL (0-1.0); Monocytes % (A) 4 %; Neutrophils # (A) 10.5 k/uL (1.3-7.7); Neutrophils % (A) 81 %; Platelet Count 434 k/uL (150-450); RBC 3.85 m/uL (3.80-5.40); RDW 14.4 % (11.5-15.5); WBC 12.8 k/uL (3.8-10.6)
[2019-12-28 16:17] LABS: ALT 14 U/L (4-34); AST 23 U/L (14-36); African American GFR (CKD) >90 (>60 ml/min/1.73 sqM); Albumin 3.9 g/dL (3.5-5.0); Alkaline Phosphatase 63 U/L (38-126); Anion Gap 11 mmol/L; Blood Urea Nitrogen 11 mg/dL (7-17); Calcium 9.5 mg/dL (8.4-10.2); Carbon Dioxide 21 mmol/L (22-30); Chloride 107 mmol/L (98-107); Glucose 104 mg/dL (74-99); Non-African American GFR(CKD) >90 (>60 ml/min/1.73 sqM); Potassium 4.1 mmol/L (3.5-5.1); Sodium 139 mmol/L (137-145); Total Bilirubin 0.3 mg/dL (0.2-1.3); Total Protein 6.6 g/dL (6.3-8.2)
[2019-12-28] MEDS ORDERED: NALOXONE 0.4 MG/ML 1 ML VIAL IV PRN (16:52)
[2019-12-28] MEDS ORDERED: ACETAMINOPHEN TAB 325 MG TAB PO PRN ×2 (16:52→18:39)
[2019-12-28] MEDS ORDERED: PIPERACILLIN-TAZOBACTAM 3.375 GM in SODIUM CHLORIDE 0.9% 100 ML IVPB STA (16:54)
[2019-12-28] MEDS: SODIUM CHLORIDE 0.9% 1,000 ML IV SCH ×2 (17:19→23:18)
[2019-12-28] MEDS ORDERED: HYDROmorphone 0.5 MG/0.5 ML SYRINGE IVP PRN (18:19)
[2019-12-28] MEDS ORDERED: LORazepam 0.5 MG TAB PO PRN (18:19)
[2019-12-28] MEDS ORDERED: traMADol 50 MG TAB PO PRN (18:39)
[2019-12-28] MEDS ORDERED: DICYCLOMINE 20 MG TAB PO PRN (18:39)
[2019-12-28] MEDS ORDERED: ONDANSETRON 4 MG/2 ML VIAL IVP PRN (18:49)
[2019-12-28 20:37] LABS: Glucose,Whole Blood 133 mg/dL (75-99)
[2019-12-28] MEDS: traZODone HCL 100 MG TAB PO SCH (20:49)
[2019-12-28] MEDS: tiZANidine 4 MG TAB PO SCH (20:50)
[2019-12-28] MEDS: LITHIUM CARBONATE 300 MG CAP PO SCH (20:50)
[2019-12-28] MEDS: cloNIDine HCL 0.1 MG TAB PO SCH (20:50)
[2019-12-28] MEDS: FLUTICASONE 50MCG/SPRAY NASAL 16GM EA NOSTRIL SCH (20:50)
[2019-12-28] MEDS: METOCLOPRAMIDE 10 MG TAB PO SCH (20:50)
[2019-12-28] MEDS: GABAPENTIN 400 MG CAP PO SCH (20:50)
[2019-12-28] MEDS: TRIMETHOPRIM 100 MG TAB PO SCH (20:50)
[2019-12-28] MEDS: RIVAROXABAN 20 MG TAB PO SCH (20:50)
[2019-12-28] MEDS: busPIRone HCl 10 MG TAB PO SCH (20:50)
[2019-12-28] MEDS: FENOFIBRATE 160 MG TAB PO SCH (20:50)
[2019-12-28] MEDS: INSULIN DETEMIR (LEVEMIR) 100 UNIT/ML SYR SQ SCH (20:51)
[2019-12-28] MEDS: INSULIN ASPART (NovoLOG) 100 UNIT/ML VIAL SQ SCH (20:51)
--- NOTE | 2019-12-28 22:04 | HP ---
HISTORY AND PHYSICAL DATE OF SERVICE: 12/28/2019. CHIEF COMPLAINTS: Abdominal discomfort, dysuria and as well as UTI. HISTORY OF PRESENT ILLNESS: This 39-year-old woman with a past medical history of multiple medical problems, history of CVA, TIA, diabetes, history of DVT, history of neurological disorder, history of dysautonomia, history of progressive neurological disorder, history of lupus, anticoagulants, Emily thyroiditis, history of ventricular tachycardia, history of pituitary adenoma, being followed by Dr. Montano in the outpatient clinic not feeling well over the past several days. Patient had history of urinary difficulties, abdominal discomfort. Patient came to emergency room yesterday. Patient given antibiotics. Subsequently, patient came back today because of increased symptoms and the patient is being admitted for further evaluation and treatment. There is no history of fever, rigors or chills. No history of headache, loss of consciousness or seizures. The patient has history of mitochondrial DNA depletion syndrome. The patient also had multiple episodes of previous UTIs and sepsis also. PAST MEDICAL HISTORY: History of diabetes type 2, CVA, TIA, DVT, neurological disorder, history of uterine ablation, bipolar depression. MEDICATIONS: Home medications are reviewed and include: 1. Desyrel 200 mg q.h.s. 2. Ultram 50 mg b.i.d. p.r.n. 3. Zanaflex 8 mg q.h.s. and 4 mg p.o. b.i.d. 4. Catapres 0.1 p.o. q.h.s. 5. BuSpar 30 mg p.o. b.i.d. 6. Trimpex 100 mg p.o. q.h.s. 7. Topamax 50 mg. 9. Phenergan 25 mg q.6h p.r.n. 10.Compazine 25 mg rectally q.8h p.r.n. 11.Protonix 40 mg a.c. breakfast. 12.Zofran 8 mg q.6h p.r.n. 13.Provigil 200 mg p.o. daily. 14.Myrbetriq 25 mg p.o. daily. 15.Toprol-XL 50 mg p.o. daily. 16.Reglan 10 mg a.c. and at bedtime. 17.Methenamine 1 g p.o. b.i.d. 18.[place] carbonate 600 mg q.h.s. 19.Synthroid 100 mcg p.o. daily. 20.Humulin R 5 units a.c. t.i.d. 21.Levemir 40 units subcu q.h.s. 22.FlexPen insulin FlexPen a.c. FlexPen a.c. and q.h.s. 23.Neurontin 400 mg p.o. t.i.d. 24.Flonase 1 spray q.h.s. 25.Lofibra 160 mg p.o. q.h.s. 26.Vitamin D2 50,000 p.o. Tuesday. 27.Bentyl 20 mg p.o. q.i.d. p.r.n. 28.Vitamin B12 2 mg p.o. daily. 29.Ceftin 500 mg p.o. b.i.d. 30.Augmentin 1 p.o. b.i.d. 31.Tylenol 650 q.6h p.r.n. ALLERGIES: MULTIPLE ALLERGIES INCLUDING BARIUM SULFATE, DOXEPIN, EPHEDRINE, INVANZ, INFLUENZA VIRUS, DOXYCYCLINE, PEANUTS, PSEUDOEPHEDRINE, BACTRIM. SOCIAL HISTORY: No history of smoking. No history of alcohol. FAMILY HISTORY: History of diabetes, hypertension, hyperlipidemia. REVIEW OF SYSTEM: ENT: No diminished vision. No diminished hearing. CARDIOVASCULAR: No angina or palpitations. RESPIRATION: No cough or hemoptysis. GI as mentioned earlier. : No dysuria or retention. NERVOUS SYSTEM: No numbness or weakness. ALLERGY/IMMUNOLOGY: No asthma or hayfever. MUSCULOSKELETAL as mentioned earlier. HEMATOLOGY/ONCOLOGY: No history of anemia. ENDOCRINE: As mentioned earlier. CONSTITUTIONAL: As mentioned earlier. DERMATOLOGY: Negative. RHEUMATOLOGY: Negative. PSYCHIATRIC: As mentioned earlier. PHYSICAL EXAM: Patient is alert, oriented x3. Pulse is 105. Blood pressure 135/77, respiration 18, temperature 98.4, pulse ox 97% on room air. HEENT is conjunctivae normal. Oral mucosa moist. Neck is no jugular venous distention. No lymph node enlargement. CARDIOVASCULAR: S1, S2 normal. No S3, no S4. RESPIRATORY: Breath sounds diminished in the bases. No rhonchi. No crackles. ABDOMEN: Soft, mild diffuse distention present. Mild diffuse discomfort and tenderness on palpation. No guarding. No rigidity. No mass palpable. No ascites. Bowel sounds present. LEGS: No edema. No swelling. NERVOUS SYSTEM: Higher functions as mentioned earlier. Moves all 4 limbs. No focal motor or sensory deficits. LYMPHATICS: No lymph nodes palpable in the neck, axillae or groin. SKIN: No ulcers, rashes or bleeding. JOINTS: No active deforming arthropathy. LAB STUDIES: WBC 12.8, hemoglobin 10.3, sodium 139, potassium 4.1, CO2 is 21, and glucose 104. ASSESSMENT: 1. Abdominal pain with urinary tract infection. 2. History of recurrent urinary tract infections. 3. Increased WBC. 4. Anemia, normocytic anemia of chronic disease. 5. History of mitochondrial DNA depletion syndrome. 6. History of diabetes type 2. 7. History of deep vein thrombosis. 8. History of syncope. 9. History of dysautonomia. 10.History of lupus anticoagulant. 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 12.History of lymphedema of the left arm. 13.History of ventricular tachycardia. 14.History of pituitary microadenoma. 15.History of patent foramen ovale. 16.History of narcolepsy. 17.History of gastroparesis. 18.History of orthostatic hypotension. 19.History of pernicious anemia. 20.History of polycystic ovary syndrome. 21.History ESBL and MRSA. 22.History of bipolar depression. 23.FULL CODE. 24.Obesity, body mass of 38.9. RECOMMENDATIONS AND DISCUSSION: This 39-year-old woman who presented with multiple complex medical issues, we will monitor the patient closely. Continue the current medications, management and symptomatic treatment. We will initiate broad-spectrum IV antibiotics cultures. I would also recommend Infectious Disease evaluation. Resume the home medications when they are confirmed. Otherwise a copy of this being forwarded to Dr. Montano who is the primary physician. Discussed with the patient who understands and agrees. MMODL / IJN: [id number] / PAM
[2019-12-28] MEDS: PIPERACILLIN-TAZOBACTAM 3.375 GM in SODIUM CHLORIDE 0.9% 100 ML IVPB SCH (23:15)
[2019-12-29] MEDS: LEVOTHYROXINE 100 MCG TAB PO SCH (05:56)
[2019-12-29] MEDS: LEVOTHYROXINE 125 MCG TAB PO SCH (05:56)
[2019-12-29 07:14] LABS: Glucose,Whole Blood 137 mg/dL (75-99)
[2019-12-29 07:19] LABS: Basophils # (A) 0.1 k/uL (0-0.2); Basophils % (A) 1 %; Eosinophils # (A) 0.2 k/uL (0-0.7); Eosinophils % (A) 3 %; HCT 33.1 % (34.0-46.0); HGB 10.3 gm/dL (11.4-16.0); Hypochromasia Moderate; Lymphocytes % (A) 25 %; MCH 26.8 pg (25.0-35.0); MCV 86.6 fL (80.0-100.0); Mean Platelet Volume 7.9; Monocytes # (A) 0.4 k/uL (0-1.0); Monocytes % (A) 5 %; Neutrophils # (A) 5.2 k/uL (1.3-7.7); Neutrophils % (A) 64 %; Platelet Count 417 k/uL (150-450); RBC 3.83 m/uL (3.80-5.40); RDW 14.3 % (11.5-15.5); WBC 8.2 k/uL (3.8-10.6)
[2019-12-29 07:28] LABS: African American GFR (CKD) >90 (>60 ml/min/1.73 sqM); Anion Gap 6 mmol/L; Blood Urea Nitrogen 8 mg/dL (7-17); Calcium 8.9 mg/dL (8.4-10.2); Carbon Dioxide 22 mmol/L (22-30); Chloride 108 mmol/L (98-107); Glucose 134 mg/dL (74-99); Non-African American GFR(CKD) >90 (>60 ml/min/1.73 sqM); Sodium 136 mmol/L (137-145)
[2019-12-29] MEDS: INSULIN ASPART (NovoLOG) 100 UNIT/ML VIAL SQ SCH ×5 (08:07→20:54)
[2019-12-29] MEDS: PIPERACILLIN-TAZOBACTAM 3.375 GM in SODIUM CHLORIDE 0.9% 100 ML IVPB SCH ×4 (08:13→23:40)
[2019-12-29] MEDS: busPIRone HCl 10 MG TAB PO SCH ×2 (08:14→20:52)
[2019-12-29] MEDS: METOPROLOL SUCCINATE (ER) 50 MG TAB.ER.24H PO SCH (08:14)
[2019-12-29] MEDS: PANTOPRAZOLE 40 MG TABLET PO SCH (08:14)
[2019-12-29] MEDS: CYANOCOBALAMIN 500 MCG TAB PO SCH (08:14)
[2019-12-29] MEDS: GABAPENTIN 400 MG CAP PO SCH ×3 (08:14→20:53)
[2019-12-29] MEDS: MODAFINIL 200 MG TAB PO SCH (08:15)
[2019-12-29] MEDS: METOCLOPRAMIDE 10 MG TAB PO SCH ×4 (08:15→20:53)
[2019-12-29] MEDS: tiZANidine 4 MG TAB PO SCH ×3 (08:15→20:53)
[2019-12-29] MEDS: INSULIN REGULAR 100 UNIT/ML VIAL SQ SCH ×3 (08:16→16:52)
[2019-12-29 11:51] LABS: Glucose,Whole Blood 203 mg/dL (75-99)
[2019-12-29 14:06] LABS: Hemoglobin A1C 6.8 % (4.0-6.0)
[2019-12-29 16:52] LABS: Glucose,Whole Blood 144 mg/dL (75-99)
--- NOTE | 2019-12-29 18:32 | PN ---
PROGRESS NOTE DATE OF SERVICE: 12/29/2019 This 39-year-old woman with a past medical history of multiple medical problems admitted with abdominal discomfort and possibility of UTI. The patient had previous recurrent UTIs and ESBL E coli also grown from the culture previously. No chest pain or palpitations. No fever. PHYSICAL EXAMINATION: On exam, alert and oriented x3. Pulse is 69, blood pressure 121/77, respirations 14, temperature 98.4, pulse ox 98% on room air. HEENT: Conjunctivae normal. NECK: No jugular venous distention. CARDIOVASCULAR: S1, S2 muffled. RESPIRATORY: Breath sounds diminished at the bases. No rhonchi, no crackles. ABDOMEN: Soft, nontender. LEGS: No edema. No swelling. NERVOUS SYSTEM: No focal deficits. LABS: WBC 8.2, hemoglobin 10.3, sodium 136, hemoglobin A1c 6.8. ASSESSMENT: 1. Abdominal pain with acute urinary tract infection, present on admission. 2. History of recurrent urinary tract infections and ESBL Escherichia coli previously. 3. Increased WBC. 4. Anemia, normocytic anemia of chronic disease. 5. History of mitochondrial DNA depletion syndrome. 6. Diabetes mellitus type 2. 7. History of deep vein thrombosis. 8. History of syncope. 9. History of dysautonomia. 10.History of lupus anticoagulant. 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 12.History lymphedema of the left arm. 13.History of ventricular tachycardia. 14.History of pituitary microadenoma. 15.History of patent foramen ovale. 16.History of narcolepsy. 17.History of gastroparesis. 18.History of orthostatic hypotension. 19.History of pernicious anemia. 20.History of polycystic ovarian syndrome. 21.History ESBL and MRSA. 22.History of bipolar depression. 23.Obesity with body mass index 38.9. 24.FULL CODE. RECOMMENDATIONS AND DISCUSSION: Recommend to continue current medications, continue symptomatic treatment with antibiotics. Follow closely with Infectious Disease. Otherwise, we will await the final culture report. Guarded prognosis. Further recommendations to follow. MMODL / IJN: [id number] /
[2019-12-29 20:35] LABS: Glucose,Whole Blood 191 mg/dL (75-99)
[2019-12-29] MEDS: cloNIDine HCL 0.1 MG TAB PO SCH (20:52)
[2019-12-29] MEDS: traZODone HCL 100 MG TAB PO SCH (20:53)
[2019-12-29] MEDS: LITHIUM CARBONATE 300 MG CAP PO SCH (20:54)
[2019-12-29] MEDS: RIVAROXABAN 20 MG TAB PO SCH (20:54)
[2019-12-29] MEDS: TRIMETHOPRIM 100 MG TAB PO SCH (20:54)
[2019-12-29] MEDS: FENOFIBRATE 160 MG TAB PO SCH (20:54)
[2019-12-29] MEDS: INSULIN DETEMIR (LEVEMIR) 100 UNIT/ML SYR SQ SCH (20:55)
[2019-12-29] MEDS: FLUTICASONE 50MCG/SPRAY NASAL 16GM EA NOSTRIL SCH (20:55)
--- NOTE | 2019-12-29 21:10 | CONS ---
CONSULTATION DATE OF SERVICE: 12/29/2019 REASON FOR FOLLOW UP: Recurrent UTI infection. HISTORY OF PRESENT ILLNESS: The patient is a 39-year-old female with a past medical history significant for mitochondrial disease, neurogenic bladder, diabetes and history of recurrent UTI with multiple admissions to the hospital. The patient presenting to the ER with chief complaints of not feeling her usual baseline and thought she did have a fever with tachycardia. The patient took a Tylenol last night with some improvement in her symptoms. The patient denies any flank pain. No nausea, no vomiting. No abdominal pain. She did have some urinary frequency and urgency, but no burning, suprapubic or flank pain. No nausea, no vomiting. Apparently, she was seen for similar symptoms in the ER the day before and she was offered admission, however, she could not stay because it was a hold, so she did have a UA and cultures done which had been negative. The patient, on admission to the hospital, was noticed to be afebrile. [place] [id number] and UA has been negative. The patient was started on Zosyn, admitted to the hospital, Infectious Disease was consulted for further recommendations regarding antibiotic therapy. REVIEW OF SYSTEMS: Positive points have been mentioned in HPI. Rest of the systems are negative. PAST MEDICAL HISTORY: Her past medical history is significant for diabetes mellitus, CVA, TIA, DVT, hypothyroidism, recurrent urinary tract infection, mitochondrial disorder. PAST SURGICAL HISTORY: Significant for colonoscopy, EGD, GERSON, Port-A-Cath placement. SOCIAL HISTORY: Denies smoking, drinking or drug use. FAMILY HISTORY: Brother with history of diabetes and hypertension. Father also diabetic and hypertension. Mother with DVT and TIA. ALLERGIES: MULTIPLE MEDICATION HAS BEEN LISTED IN THE CHART AND REVIEWED. MEDICATIONS: Medication include the patient is currently on: 1. Tylenol. 2. Buspar. 3. Catapres. 4. Vitamin B12. 5. Bentyl. 6. Lifibrate. 7. Flonase. 8. Neurontin. 9. NovoLog. 10.Levemir. 11.Humulin-R. 12.Synthroid. 13.Ativan. 14.Toprol-XL. 15.Provigil. 16.Narcan. 17.Zosyn. 18.Xarelto. 19.Desyrel. 20. . PHYSICAL EXAMINATION: On examination, her blood pressure is 121/77 with a pulse of 69, temperature 98.4. She is 98% on room air. General description is a middle-aged female up in the bed in no distress. No tachypnea or accessory muscles of respiration use. HEENT: Shows slight pallor. No scleral icterus. Oral mucosal membranes are dry. No pharyngeal erythema or thrush. NECK: Trachea central. No thyromegaly. LUNGS unlabored breathing. Clear to auscultation. No wheeze or crackles. HEART S1, S2. Regular rate and rhythm. ABDOMEN: Soft, no tenderness. No guarding. No rigidity. No organomegaly. EXTREMITIES: No edema of the feet. SKIN examination: No rash or mass palpable. NEUROLOGICAL: Patient is awake, alert, oriented x3. Mood and affect are normal. LABS: Hemoglobin is 10.3, white count on admission was 12, down to 8.2 today with a BUN of 8, creatinine 0.65. Urine has been negative. She did have a urine and blood culture done on December 27, those have been negative as well. DIAGNOSTIC IMPRESSION AND PLAN: Patient admitted to the hospital with generalized not feeling well with some urinary frequency and urgency in this patient who did have history of recurrent urinary tract infection. However, her urine is clean with no pyuria or leukocyte esterases in this patient clinically not behaving as UTI with no evidence of any suprapubic or flank pain. The patient currently with no other clinical focus of infection. Abdomen was soft on examination, lungs were clear and no evidence of any cellulitis in this is not running any fever and recent culture negative. PLAN: Recommend discontinue antibiotic and monitor the patient closely off antibiotic therapy as no evidence of any bacterial infection. Thank you for this consultation. Will follow this patient along with you. MMODL / IJN: [id number] /
[2019-12-29] MEDS: SODIUM CHLORIDE 0.9% 1,000 ML IV SCH (23:41)
[2019-12-30] MEDS: LEVOTHYROXINE 100 MCG TAB PO SCH (06:01)
[2019-12-30] MEDS: LEVOTHYROXINE 125 MCG TAB PO SCH (06:01)
[2019-12-30 06:10] LABS: HCT 32.4 % (34.0-46.0); HGB 10.2 gm/dL (11.4-16.0); Hypochromasia Moderate; MCH 26.9 pg (25.0-35.0); MCHC 31.4 g/dL (31.0-37.0); MCV 85.6 fL (80.0-100.0); Mean Platelet Volume 7.3; Platelet Count 401 k/uL (150-450); RBC 3.79 m/uL (3.80-5.40); RDW 14.2 % (11.5-15.5)
[2019-12-30 06:20] LABS: African American GFR (CKD) >90 (>60 ml/min/1.73 sqM); Anion Gap 7 mmol/L; Blood Urea Nitrogen 10 mg/dL (7-17); Calcium 9.3 mg/dL (8.4-10.2); Carbon Dioxide 24 mmol/L (22-30); Chloride 106 mmol/L (98-107); Glucose 122 mg/dL (74-99); Non-African American GFR(CKD) >90 (>60 ml/min/1.73 sqM); Potassium 4.1 mmol/L (3.5-5.1); Sodium 137 mmol/L (137-145)
[2019-12-30 06:28] LABS: Glucose,Whole Blood 109 mg/dL (75-99)
[2019-12-30 06:52] LABS: Basophils # (M) 0.09 k/uL (0-0.2); Eosinophils # (M) 0.36 k/uL (0-0.7); Lymphocytes # (M) 2.52 k/uL (1.0-4.8); Monocytes # (M) 0.36 k/uL (0-1.0); Neutrophils # (M) 5.67 k/uL (1.3-7.7); Neutrophils % (M) 63 %; Nucleated Red Blood Cells 0 /100 WBC (0-0); Total Cells Counted 100
[2019-12-30 06:55] LABS: Anisocytosis (M) Present
[2019-12-30] MEDS: INSULIN ASPART (NovoLOG) 100 UNIT/ML VIAL SQ SCH ×4 (07:03→20:39)
[2019-12-30] MEDS: INSULIN REGULAR 100 UNIT/ML VIAL SQ SCH ×3 (07:03→16:16)
[2019-12-30] MEDS: busPIRone HCl 10 MG TAB PO SCH ×2 (08:51→20:40)
[2019-12-30] MEDS: PIPERACILLIN-TAZOBACTAM 3.375 GM in SODIUM CHLORIDE 0.9% 100 ML IVPB SCH ×3 (08:51→23:52)
[2019-12-30] MEDS: PANTOPRAZOLE 40 MG TABLET PO SCH (08:51)
[2019-12-30] MEDS: METOCLOPRAMIDE 10 MG TAB PO SCH ×4 (08:51→20:40)
[2019-12-30] MEDS: MODAFINIL 200 MG TAB PO SCH (08:52)
[2019-12-30] MEDS: GABAPENTIN 400 MG CAP PO SCH ×3 (08:52→20:40)
[2019-12-30] MEDS: CYANOCOBALAMIN 500 MCG TAB PO SCH (08:52)
[2019-12-30] MEDS: tiZANidine 4 MG TAB PO SCH ×3 (08:53→20:40)
[2019-12-30 11:54] LABS: Glucose,Whole Blood 144 mg/dL (75-99)
[2019-12-30] MEDS: METOPROLOL SUCCINATE (ER) 50 MG TAB.ER.24H PO SCH (11:57)
[2019-12-30 16:42] LABS: Glucose,Whole Blood 90 mg/dL (75-99)
--- NOTE | 2019-12-30 18:37 | PN ---
PROGRESS NOTE DATE OF SERVICE: 12/30/2019 This 39-year-old woman was admitted with UTI, is being closely monitored at this time. The patient had a previous history ESBL E coli. The patient was recently admitted to [facility]. The patient also came to the ER and the culture done in the ER showed some genital radha. No chest pain. No palpitations. No fever. The patient is on empiric antibiotics. EXAM: Alert and oriented x3. Pulse 67, blood pressure 107/75, respiration 14, temperature 98.9, pulse ox 98% on room air. EYES: Conjunctivae normal. NECK: No JVD. CARDIOVASCULAR: S1, S2 muffled. LUNGS: Diminished breath sounds at the bases. No rhonchi, no crackles. ABDOMEN: Soft, nontender. LEGS: No swelling. NERVOUS SYSTEM: No focal deficits. LABS: Reviewed. ASSESSMENT: 1. Abdominal pain with acute urinary tract infection, present on admission. 2. History of recurrent urinary tract infection as well as the ESBL E coli previously. 3. Increased WBC. 4. Anemia, normocytic anemia of chronic disease. 5. History of mitochondrial DNA depletion syndrome. 6. Diabetes type 2. 7. History of deep vein thrombosis. 8. History of syncope. 9. History of dysautonomia. 10.History of lupus anticoagulant. 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 12.History of lymphedema of the left arm. 13.History of ventricular tachycardia. 14.History of pituitary microadenoma. 15.History of foramen ovale. 16.History of narcolepsy. 17.History of gastroparesis. 18.History of orthostatic hypotension. 19.History of pernicious anemia. 20.History of polycystic ovarian syndrome. 21.History of ESBL and MRSA. 22.History of bipolar depression. 23.Obesity with body mass index of 38.9. 24.FULL CODE. RECOMMENDATIONS AND DISCUSSION: Recommend to continue current medications, continue to monitor, continue symptomatic treatment. Continue the current antibiotics. Otherwise, I would recommend closely follow with Infectious Disease. Await the final cultures. Guarded prognosis because of multiple complex medical issues and further recommendations to follow. MMODL / IJN: [id number] /
[2019-12-30 20:36] LABS: Glucose,Whole Blood 142 mg/dL (75-99)
[2019-12-30] MEDS: SODIUM CHLORIDE 0.9% 1,000 ML IV SCH (20:38)
[2019-12-30] MEDS: RIVAROXABAN 20 MG TAB PO SCH (20:39)
[2019-12-30] MEDS: INSULIN DETEMIR (LEVEMIR) 100 UNIT/ML SYR SQ SCH (20:39)
[2019-12-30] MEDS: LITHIUM CARBONATE 300 MG CAP PO SCH (20:39)
[2019-12-30] MEDS: FLUTICASONE 50MCG/SPRAY NASAL 16GM EA NOSTRIL SCH (20:40)
[2019-12-30] MEDS: cloNIDine HCL 0.1 MG TAB PO SCH (20:40)
[2019-12-30] MEDS: FENOFIBRATE 160 MG TAB PO SCH (20:40)
[2019-12-30] MEDS: TRIMETHOPRIM 100 MG TAB PO SCH (20:40)
[2019-12-30] MEDS: traZODone HCL 100 MG TAB PO SCH (20:40)
--- NOTE | 2019-12-30 22:49 | PN ---
PROGRESS NOTE DATE OF SERVICE: 12/30/2019 REASON FOR FOLLOW UP: Urinary tract infection. INTERVAL HISTORY: The patient is currently afebrile. She has been breathing comfortably. The patient's urinary symptoms have improved. No nausea, no vomiting, no abdominal pain, no diarrhea. PHYSICAL EXAMINATION: Blood pressure 107/70 with a pulse of 67, temperature 98.9, she is 98% on room air. General description is a middle-aged female lying in bed in no distress. Respiratory system: Unlabored breathing, clear to auscultation anteriorly. Heart S1, S2. Regular rate and rhythm. Abdomen soft, no tenderness. LABS: Hemoglobin 10.1, white count 9.0, BUN of 10, creatinine 0.61. Cultures remain to be negative so far. DIAGNOSTIC IMPRESSION AND PLAN: Patient with admission to hospital with urinary symptoms and concern for fever in the outpatient setting. She did have elevated white count but urine is negative. Cultures remain to be negative. Antibiotic can be safely discontinued. Continue supportive care. MMODL / IJN: [id number] /
[2019-12-31 03:48] VITALS: TEMP 98.4
[2019-12-31] MEDS: LEVOTHYROXINE 100 MCG TAB PO SCH (06:20)
[2019-12-31] MEDS: LEVOTHYROXINE 125 MCG TAB PO SCH (06:20)
[2019-12-31 07:09] LABS: Glucose,Whole Blood 120 mg/dL (75-99)
[2019-12-31 07:37] LABS: Basophils % (A) 0 %; Eosinophils # (A) 0.3 k/uL (0-0.7); Eosinophils % (A) 3 %; HCT 36.5 % (34.0-46.0); HGB 11.3 gm/dL (11.4-16.0); Hypochromasia Slight; Lymphocytes # (A) 2.2 k/uL (1.0-4.8); Lymphocytes % (A) 21 %; MCH 26.4 pg (25.0-35.0); MCHC 30.9 g/dL (31.0-37.0); MCV 85.5 fL (80.0-100.0); Mean Platelet Volume 7.5; Monocytes # (A) 0.5 k/uL (0-1.0); Monocytes % (A) 5 %; Neutrophils # (A) 7.5 k/uL (1.3-7.7); Neutrophils % (A) 70 %; Platelet Count 416 k/uL (150-450); RBC 4.27 m/uL (3.80-5.40); RDW 14.6 % (11.5-15.5); WBC 10.6 k/uL (3.8-10.6)
[2019-12-31] MEDS: INSULIN REGULAR 100 UNIT/ML VIAL SQ SCH (07:39)
[2019-12-31] MEDS: INSULIN ASPART (NovoLOG) 100 UNIT/ML VIAL SQ SCH (07:39)
[2019-12-31 07:50] LABS: African American GFR (CKD) >90 (>60 ml/min/1.73 sqM); Anion Gap 12 mmol/L; Blood Urea Nitrogen 11 mg/dL (7-17); Calcium 10.1 mg/dL (8.4-10.2); Carbon Dioxide 23 mmol/L (22-30); Chloride 102 mmol/L (98-107); Glucose 126 mg/dL (74-99); Non-African American GFR(CKD) >90 (>60 ml/min/1.73 sqM); Potassium 4.1 mmol/L (3.5-5.1); Sodium 137 mmol/L (137-145)
[2019-12-31] MEDS: PIPERACILLIN-TAZOBACTAM 3.375 GM in SODIUM CHLORIDE 0.9% 100 ML IVPB SCH (07:50)
[2019-12-31] MEDS: tiZANidine 4 MG TAB PO SCH (07:51)
[2019-12-31] MEDS: PANTOPRAZOLE 40 MG TABLET PO SCH (07:51)
[2019-12-31] MEDS: GABAPENTIN 400 MG CAP PO SCH (07:51)
[2019-12-31] MEDS: busPIRone HCl 10 MG TAB PO SCH (07:51)
[2019-12-31] MEDS: METOCLOPRAMIDE 10 MG TAB PO SCH (07:52)
[2019-12-31] MEDS: CYANOCOBALAMIN 500 MCG TAB PO SCH (07:52)
[2019-12-31] MEDS: MODAFINIL 200 MG TAB PO SCH (07:52)
[2019-12-31 08:03] VITALS: BP 93/57; PULSE 67; RESP 18
[2019-12-31] MEDS: METOPROLOL SUCCINATE (ER) 50 MG TAB.ER.24H PO SCH (11:35)
--- NOTE | 2019-12-31 13:30 | PN ---
PROGRESS NOTE DATE OF SERVICE: 12/31/2019 REASON FOR FOLLOWUP: Possible UTI. INTERVAL HISTORY: The patient was seen on rounds this morning. The patient overall is feeling better. Breathing comfortably. Denies having any chest pain or cough. No nausea, no vomiting. Abdominal pain has improved and no diarrhea. PHYSICAL EXAMINATION: Blood pressure is 93/57 with a pulse of 67, temperature 98.4. She is 97% on room air. General description is a middle-aged female, lying in bed in no distress. RESPIRATORY SYSTEM: Unlabored breathing, clear to auscultation anteriorly. HEART: S1, S2. Regular rate and rhythm. ABDOMEN: Soft, no tenderness. LABS: White count 10.6. Creatinine 0.71. Blood culture has been negative. DIAGNOSTIC IMPRESSION AND PLAN: Patient admitted to the hospital with not feeling well and a fever. The patient did not have any localizing focus of infection. With a history of recurrent urinary tract infection, she was treated with Zosyn. She received about 4 days, which should be more than of enough for a mild cystitis. No need for antibiotic on discharge. Continue with supportive care. MMODL / IJN: [id number] / PAM
--- NOTE | 2020-01-01 07:10 | DS ---
DISCHARGE SUMMARY DATE OF SERVICE: 12/31/2019 FINAL DIAGNOSES: 1. Abdominal pain with acute urinary tract infection present on admission improved. 2. History of recent urinary tract infection as well as ESBL E coli previously. 3. Increased WBC. 4. Anemia, normocytic of chronic disease. 5. History of mitochondrial DNA depletion syndrome. 6. Diabetes type 2. 7. History of deep vein thrombosis. 8. History of syncope. 9. History of dysautonomia. 10.History of lupus anticoagulant. 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 12.History of lymphedema of the left arm. 13.History ventricular tachycardia. 14.History of pituitary microadenoma. 15.History of foramina ovale. 16.History of narcolepsy. 17.History of gastroparesis. 18.History of orthostatic hypotension. 19.History of pernicious anemia. 20.History of polycystic ovarian syndrome. 21.History ESBL and MRSA. 22.History of bipolar depression. 23.Obesity with body mass index of 38.9. 24.FULL CODE. DISCHARGE DISPOSITION: The patient being discharged in stable condition with guarded prognosis. HISTORY OF PRESENT ILLNESS: This 39-year-old woman with past medical history of multiple medical problems being followed by Dr. Montano in the outpatient setting was admitted with features of UTI. The patient was treated symptomatically but however urine culture is negative. Dr. Llanes saw the patient also. The patient being discharged in stable with guarded prognosis. On exam, vitals are stable. Cardiovascular S1, S2. Abdomen soft. Nervous system: No focal deficits. DISCHARGE ADVICE AND MEDICATIONS: 1. Discharge diet is cardiac. 2. Activity limited followup. 3. Follow up with Dr. Montano 2-3 days. 4. Follow up with Dr. Llanes as recommended. 5. No antibiotics per Infectious Disease Dr. Llanes at this time. DISCHARGE MEDICATIONS: 1. Prochlorperazine suppository p.r.n. 2. Fluticasone 1 spray daily. 3. [place] carbonate 600 mg q.h.s. 4. Methenamine 1 g p.o. b.i.d. as before. 5. Myrbetriq 25 mg p.o. daily. 6. NovoLog FlexPen as before. 7. Phenergan as before. 8. Synthroid 225 mcg p.o. daily. 9. Tylenol p.r.n. 10.Ultram 50 mg b.i.d. p.r.n. 11.Vitamin B12 2 g p.o. daily. 12.Vitamin D2 50,000 p.o. Tuesday. 13.Zanaflex 4 mg p.o. b.i.d. 14.Bentyl 20 mg p.o. q.i.d. p.r.n. 15.BuSpar 30 mg p.o. b.i.d. 16.Catapres 0.1 p.o. mg q.h.s. 17.Desyrel 200 mg q.h.s. 18.Humulin R 5 units a.c. t.i.d. 19.Levemir 40 units subcu q.h.s. 20.Lofibra 160 mg q.h.s. 21.Neurontin 400 mg p.o. t.i.d. 22.Protonix 40 mg b.i.d. 23.Provigil 200 mg p.o. daily. 24.Reglan 10 mg q.a.c. and bedtime. 25.Toprol-XL 50 mg p.o. daily. 26.Trimpex 100 mg p.o. q.h.s. 27.Xarelto 20 mg q.h.s. 28.Zanaflex 80 mg q.h.s. 29.Zofran 8 mg q.6h p.r.n. Once again, the patient being discharged in stable condition with guarded prognosis. MMODL / IJN: [id number] /
== END 2019-12-31 12:10 | disposition home or self-care (01) | DRG 690 ==
LOC: EC 14:25 → OBSVTOIN 16:43 → 1SOBS 16:43
PROVIDERS: ADMIT Hospitalist; ATTEND Hospitalist
DX: N39.0 Urinary tract infection, site not specified (principal); D68.62 Lupus anticoagulant syndrome; Q21.1 Atrial septal defect; E88.49 Other mitochondrial metabolism disorders; E11.43 Type 2 diabetes mellitus with diabetic autonomic (poly)neuropathy; E11.41 Type 2 diabetes mellitus with diabetic mononeuropathy; D63.8 Anemia in other chronic diseases classified elsewhere; E06.3 Autoimmune thyroiditis; E66.9 Obesity, unspecified; N31.9 Neuromuscular dysfunction of bladder, unspecified; F31.9 Bipolar disorder, unspecified; E28.2 Polycystic ovarian syndrome; K31.84 Gastroparesis; D51.0 Vitamin B12 deficiency anemia due to intrinsic factor deficiency; Z79.4 Long term (current) use of insulin; Z79.890 Hormone replacement therapy; Z79.01 Long term (current) use of anticoagulants; Z86.14 Personal history of Methicillin resistant Staphylococcus aureus infection; Z98.890 Other specified postprocedural states; Z82.49 Family history of ischemic heart disease and other diseases of the circulatory system; Z83.3 Family history of diabetes mellitus; Z83.438 Family history of other disorder of lipoprotein metabolism and other lipidemia; Z68.38 Body mass index [BMI] 38.0-38.9, adult; Z79.899 Other long term (current) drug therapy; Z88.2 Allergy status to sulfonamides; Z88.7 Allergy status to serum and vaccine; Z88.8 Allergy status to other drugs, medicaments and biological substances; Z88.1 Allergy status to other antibiotic agents; Z91.010 Allergy to peanuts; Z86.79 Personal history of other diseases of the circulatory system; Z86.73 Personal history of transient ischemic attack (TIA), and cerebral infarction without residual deficits; Z86.718 Personal history of other venous thrombosis and embolism; Z87.440 Personal history of urinary (tract) infections; Z86.19 Personal history of other infectious and parasitic diseases
CPT/HCPCS: 36415; 71046; 80048; 80053; 81001; 81003; 83036; 83605; 85025; 87040; 87086; 87502; 93005; 96361; 96365; 96375; 99284; 99285

== ENCOUNTER 2020-01-16 15:31 | Emergency (ER) | payer MEDICARE, OTHER ==
[2020-01-16] MEDS ORDERED: ACETAMINOPHEN TAB 325 MG TAB PO STA (15:51)
[2020-01-16] MEDS ORDERED: SODIUM CHLORIDE 0.9% 1,000 ML IV ONE (15:51)
[2020-01-16] MEDS ORDERED: IBUPROFEN 600 MG TAB PO STA (15:51)
[2020-01-16 16:25] VITALS: RESP 16
[2020-01-16 16:32] LABS: Basophils % (A) 0 %; Eosinophils # (A) 0.3 k/uL (0-0.7); Eosinophils % (A) 2 %; HCT 35.1 % (34.0-46.0); HGB 11.2 gm/dL (11.4-16.0); Lymphocytes # (A) 1.6 k/uL (1.0-4.8); Lymphocytes % (A) 12 %; MCH 26.5 pg (25.0-35.0); MCHC 31.8 g/dL (31.0-37.0); MCV 83.2 fL (80.0-100.0); Mean Platelet Volume 7.4; Monocytes # (A) 0.6 k/uL (0-1.0); Monocytes % (A) 4 %; Neutrophils # (A) 10.7 k/uL (1.3-7.7); Neutrophils % (A) 80 %; Platelet Count 392 k/uL (150-450); RBC 4.22 m/uL (3.80-5.40); RDW 14.4 % (11.5-15.5); WBC 13.4 k/uL (3.8-10.6)
--- NOTE | 2020-01-16 16:40 | XR ---
EXAMINATION TYPE: XR chest 2V DATE OF EXAM: 01/16/2020 COMPARISON: 12/27/2019 INDICATION: Cough fever tachycardia TECHNIQUE: Frontal and lateral views of the chest are obtained. FINDINGS: The heart size is normal. The pulmonary vasculature is normal. . Port is on the right with the tip in superior vena cava region. No suspicious consolidations are e vident. IMPRESSION: 1. No acute pulmonary process.
[2020-01-16 16:41] LABS: ALT 21 U/L (4-34); AST 26 U/L (14-36); African American GFR (CKD) >90 (>60 ml/min/1.73 sqM); Albumin 4.4 g/dL (3.5-5.0); Alkaline Phosphatase 80 U/L (38-126); Anion Gap 12 mmol/L; Blood Urea Nitrogen 12 mg/dL (7-17); Calcium 9.9 mg/dL (8.4-10.2); Carbon Dioxide 22 mmol/L (22-30); Chloride 105 mmol/L (98-107); Glucose 168 mg/dL (74-99); Magnesium 1.5 mg/dL (1.6-2.3); Non-African American GFR(CKD) >90 (>60 ml/min/1.73 sqM); Phosphorus 3.7 mg/dL (2.5-4.5); Potassium 4.2 mmol/L (3.5-5.1); Sodium 139 mmol/L (137-145); Total Bilirubin <0.1 mg/dL (0.2-1.3); Total Protein 7.1 g/dL (6.3-8.2)
[2020-01-16 16:54] LABS: Appearance,Urine Clear (Clear); Bilirubin,Urine Negative (Negative); Blood,Urine Negative (Negative); Color,Urine Dark Yellow; Glucose,Urine (UA) Negative (Negative); Ketones,Urine Negative (Negative); Leukocyte Esterase,Urine Negative (Negative); Nitrite,Urine Negative (Negative); PH, Urine 5.5 (5.0-8.0); Protein,Urine Negative (Negative); Specific Gravity,Urine 1.028 (1.001-1.035); Urobilinogen,Urine <2.0 mg/dL (<2.0)
[2020-01-16] MEDS ORDERED: SODIUM CHLORIDE 0.9% 500 ML 500 ML IV ONE (16:56)
[2020-01-16 17:12] VITALS: TEMP 99.1
[2020-01-16] MEDS ORDERED: MAGNESIUM OXIDE 400 MG TAB PO STA (17:51)
--- NOTE | 2020-01-16 17:55 | ED ---
General Adult HPI - General Chief complaint: Arrhythmia/Palpitations Stated complaint: Fever,tachycardia Time Seen by Provider: 01/16/20 15:47 Source: patient, RN notes reviewed, old records reviewed Mode of arrival: wheelchair Limitations: no limitations - History of Present Illness Initial comments: 39-year-old female patient significant past history significant for myocardial disorder, lupus, gastroparesis, type 2 diabetes presents to ED for chief com plaint approximately one week of fever, elevated heart rate. Patient reports some generalized aches and pains but no focal area of pain. Does report that she has had some mild coughing. Reports that she was sent over by the primary care provider. Denies any other complaints at this time. Denies chest pain or shortness of breath. Systemic: Pt denies fatigue, fever/chills, rash. Pt denies weakness, night sweats, weight loss. Neuro: Pt denies headache, visual disturbances, syncope or pre-syncope. HEENT: Pt denies ocular discharge or irritation, otalgia, rhinorrhea, pharyngitis or notable lymphadenopathy. Cardiopulmonary: Pt denies chest pain, SOB, heart palpitations, dyspnea on exertion. Abdominal/GI: Pt denies abdominal pain, n/v/d. : Pt denies dysuria, burning w/ urination, frequency/urgency. Denies new onset urinary or bowel incontinence. MSK: Pt denies loss of strength or function in extremities. Neuro: Pt denies new onset weakness, paresthesias. - Related Data Home Medications Medication Instructions Recorded Confirmed tiZANidine [Zanaflex] 4 mg PO BID@0900,1500 12/04/18 12/28/19 Levothyroxine Sodium [Synthroid] 100 mcg PO DAILY 01/16/19 12/28/19 Cyanocobalamin (Vitamin B-12) 2,000 mcg PO DAILY 01/22/19 12/28/19 [Vitamin B-12] traMADol HCL [Ultram] 50 mg PO BID PRN 06/28/19 12/28/19 Methenamine Hippurate 1 gm PO BID 07/12/19 12/28/19 Ergocalciferol [Vitamin D2 50,000 unit PO TAYLOR 10/08/19 12/28/19 (DRISDOL)] Fluticasone Nasal [place] [Flonase 1 spray EA NOSTRIL HS 10/08/19 12/28/19 Nasal [place]] Insulin Aspart [NovoLOG Flexpen] See Protocol SQ ACHS 10/08/19 12/28/19 Mirabegron [Myrbetriq] 25 mg PO DAILY 10/08/19 12/28/19 Acetaminophen Tab [Tylenol] 650 mg PO Q6H PRN 11/29/19 12/28/19 [place] Carbonate 600 mg PO HS 11/29/19 12/28/19 Prochlorperazine Suppository 25 mg RECTAL Q8H PRN 11/29/19 12/28/19 [Compazine] Promethazine [Phenergan] 25 mg PO Q6H PRN 11/30/19 12/28/19 Levothyroxine Sodium [Synthroid] 125 mcg PO DAILY 12/28/19 12/28/19 Previous Rx's Medication Instructions Recorded Modafinil [Provigil] 200 mg PO DAILY tab 03/07/19 Fenofibrate [Lofibra] 160 mg PO HS tab 10/17/19 Gabapentin [Neurontin] 400 mg PO TID cap 10/17/19 Metoclopramide [Reglan] 10 mg PO ACHS tab 10/17/19 Metoprolol Succinate (ER) [Toprol 50 mg PO DAILY tab.er.24h 10/17/19 XL] Ondansetron [Zofran] 8 mg PO Q6H PRN tab 10/17/19 Rivaroxaban [Xarelto] 20 mg PO HS tab 10/17/19 Trimethoprim [Trimpex] 100 mg PO HS tab 10/17/19 busPIRone HCL [Buspar] 30 mg PO BID 28 Days tab 10/17/19 cloNIDine HCL [Catapres] 0.1 mg PO HS tab 10/17/19 tiZANidine [Zanaflex] 8 mg PO HS tab 10/17/19 traZODone HCL [Desyrel] 200 mg PO HS #28 tab 10/17/19 Dicyclomine [Bentyl] 20 mg PO QID PRN #8 tab 12/04/19 Insulin Detemir (Levemir) [Levemir] 40 unit SQ HS #1 vial 12/04/19 Insulin Regular [humuLIN R] 5 unit SQ AC-TID #1 vial 12/04/19 Pantoprazole [Protonix] 40 mg PO AC-BRKFST #30 tablet. 12/04/19 Allergies Allergy/AdvReac Type Severity Reaction Status Date / Time barium sulfate Allergy Anaphylaxis Verified 01/16/20 15:37 doxepin [Doxepin] Allergy Anaphylaxis Verified 01/16/20 15:37 ephedrine Allergy Unknown Verified 01/16/20 15:37 ertapenem [From Invanz] Allergy Rash/Hives Verified 01/16/20 15:37 influenza virus vaccine, Allergy severe Verified 01/16/20 15:37 specific swelling [Influenza Virus and hives Vacc,Specific] peanut oil AdvReac Severe Nausea & Verified 01/16/20 15:37 Vomiting,itching doxycycline AdvReac Nausea & Verified 01/16/20 15:37 Vomiting & Diarrhea peanut AdvReac Nausea & Verified 01/16/20 15:37 Vomiting Pertussis Vaccines AdvReac fever/seizu Verified 01/16/20 15:37 re pseudoephedrine AdvReac Chest Pain Verified 01/16/20 15:37 pseudoephedrine HCl AdvReac Chest Pain Verified 01/16/20 15:37 [From Sudafed] sulfamethoxazole AdvReac Nausea & Verified 01/16/20 15:37 [From Bactrim] Vomiting trimethoprim [From Bactrim] AdvReac Nausea & Verified 01/16/20 15:37 Vomiting Review of Systems ROS Statement: Those systems with pertinent positive or pertinent negative responses have been documented in the HPI. ROS Other: All systems not noted in ROS Statement are negative. Past Medical History Past Medical History: Chest Pain / Angina, CVA/TIA, Diabetes Mellitus, Deep Vein Thrombosis (DVT), Neurologic Disorder, Syncope, Thyroid Disorder Additional Past Medical History / Comment(s): STROKE LIKE EPISODE D/T MITOCHRONDIAL DISEASE HAD WORK UP DONE AT [facility]. Dysautonomia-progressive neurological disorder, lupus/LUPUS ANTICOAGULANTS, ana maria's disease, lymphedema Lt arm d/t DVTs , v-tach, pituitary microadenoma. patent foramen ovale, narcolepsy, gastropareis, IDDM type II, falls, orthostatic hypotension/syncope, migraines with hemiplegia, pernicious anemia, polycystic ovarian syndrome, neuropathy bilateral legs/feet - mild, uti's. History of Any Multi-Drug Resistant Organisms: ESBL, MRSA Date of last positivie culture/infection: 03/09/17 MRSA/ 05/17/18 ESBL MDRO Source:: MRSA LEFT ARM,/ESBL URINE ECOLI Past Surgical History: Uterine Ablation Additional Past Surgical History / Comment(s): colonscopy/egd, angie, PORT-A -CATH INSERTION 04-28-18 Past Anesthesia/Blood Transfusion Reactions: No Reported Reaction Additional Past Anesthesia/Blood Transfusion Reaction / Comment(s): patient states "It takes a lot of anesthesia for my body to react". Pt has received blood in past without reaction. Past Psychological History: Bipolar, Depression Smoking Status: Never smoker Past Alcohol Use History: None Reported Past Drug Use History: None Reported - Past Family History Brother(s) Family Medical History: Diabetes Mellitus, Hyperlipidemia, Hypertension Additional Family Medical History / Comment(s): Patient states she has 1 brother with no major medical problems. Father Family Medical History: Diabetes Mellitus, Hyperlipidemia, Hypertension Additional Family Medical History / Comment(s): DAD IS 70 YEARS OLD. Patient states she does not have any contact with her father and does not know his medical history. Mother Family Medical History: CVA/TIA, Deep Vein Thrombosis (DVT) Additional Family Medical History / Comment(s): antiphospholipid antibody syndrome General Exam - General Exam Comments Initial Comments: Constitutional: NAD, AOX3, Pt has pleasant affect. HEENT: NC/AT, trachea midline, neck supple, no lymphadenopathy. Posterior pharynx non erythematous, without exudates. External ears appear normal, without discharge. Mucous membranes moist. Eyes PERRLA, EOM intact. There is no scleral icterus. No pallor noted. Cardiopulmonary: RRR, no murmurs, rubs or gallops, no JVD noted. Lungs CTAB in anterior and posterior kebede. No peripheral edema. Abdominal exam: Abdomen soft and non-distended. Abdomen non-tender to palpation in all 4 quadrants. Bowel sounds active in LLQ. No hepatosplenomegaly. No ecchymosis Neuro: CN II-XII grossly intact. No nuchal rigidity. No raccon eyes, no wilson sign, no hemotympanum. No cervical spinal tenderness. MSK: No posterior calf tenderness bilaterally, homans sign negative bilaterally. Posterior tibialis and radial pulse +2 bilaterally. Sensation intact in upper and lower extremities. Full active ROM in upper and lower extremities, 5/5 stregnth. 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 Patient reports some generalized aches and pains but no focal area of pain. Does report that she has had some mild coughing. Reports that she was sent over by the primary care provider. Denies any other complaints at this time. Denies chest pain or shortness of breath.. Patient vital signs displayed mild tachycardia, low grade fever, patient administered antipyretic, IV fluids. Physical exam did not display acute pathology. Laboratory investigations were obtained, these displayed leukocytosis of 13. Mildly elevated blood glucose of 168, elevated lactic acid 2.8. Very mild hypomagnesemia which was supplemented. Urine influenza were negative. Chest x-ray displayed no acute cardiopulmonary process. EKG is nonischemic with no significant change from prior. Patient was offered admission, patient will go home and monitor symptoms as well as following up with primary care provider and have strict return precautions. Case discussed with Dr. Bahena. - Lab Data Result diagrams: 01/16/20 16:00 01/16/20 16:00 Lab Results 01/16/20 01/16/20 01/16/20 Range/Units 16:00 16:00 16:00 WBC 13.4 H (3.8-10.6) k/uL RBC 4.22 (3.80-5.40) m/uL Hgb 11.2 L (11.4-16.0) gm/dL Hct 35.1 (34.0-46.0) % MCV 83.2 (80.0-100.0) fL MCH 26.5 (25.0-35.0) pg MCHC 31.8 (31.0-37.0) g/dL RDW 14.4 (11.5-15.5) % Plt Count 392 (150-450) k/uL Neutrophils % 80 % Lymphocytes % 12 % Monocytes % 4 % Eosinophils % 2 % Basophils % 0 % Neutrophils # 10.7 H (1.3-7.7) k/uL Lymphocytes # 1.6 (1.0-4.8) k/uL Monocytes # 0.6 (0-1.0) k/uL Eosinophils # 0.3 (0-0.7) k/uL Basophils # 0.0 (0-0.2) k/uL Sodium 139 (137-145) mmol/L Potassium 4.2 (3.5-5.1) mmol/L Chloride 105 (98-107) mmol/L Carbon Dioxide 22 (22-30) mmol/L Anion Gap 12 mmol/L BUN 12 (7-17) mg/dL Creatinine 0.61 (0.52-1.04) mg/dL Est GFR (CKD-EPI)AfAm >90 (>60 ml/min/1.73 sqM) Est GFR (CKD-EPI)NonAf >90 (>60 ml/min/1.73 sqM) Glucose 168 H (74-99) mg/dL Plasma Lactic Acid Joce (0.7-2.0) mmol/L Calcium 9.9 (8.4-10.2) mg/dL Phosphorus 3.7 (2.5-4.5) mg/dL Magnesium 1.5 L (1.6-2.3) mg/dL Total Bilirubin <0.1 L (0.2-1.3) mg/dL AST 26 (14-36) U/L ALT 21 (4-34) U/L Alkaline Phosphatase 80 (38-126) U/L Total Protein 7.1 (6.3-8.2) g/dL Albumin 4.4 (3.5-5.0) g/dL Urine Color Urine Appearance (Clear) Urine pH (5.0-8.0) Ur Specific [place] (1.001-1.035) Urine Protein (Negative) Urine Glucose (UA) (Negative) Urine Ketones (Negative) Urine Blood (Negative) Urine Nitrite (Negative) Urine Bilirubin (Negative) Urine Urobilinogen (<2.0) mg/dL Ur Leukocyte Esterase (Negative) Urine HCG, Qual Not Detected (Not Detectd) Influenza Type A RNA (Not Detectd) Influenza Type B (PCR) (Not Detectd) 01/16/20 01/16/20 01/16/20 Range/Units 16:00 16:00 16:00 WBC (3.8-10.6) k/uL RBC (3.80-5.40) m/uL Hgb (11.4-16.0) gm/dL Hct (34.0-46.0) % MCV (80.0-100.0) fL MCH (25.0-35.0) pg MCHC (31.0-37.0) g/dL RDW (11.5-15.5) % Plt Count (150-450) k/uL Neutrophils % % Lymphocytes % % Monocytes % % Eosinophils % % Basophils % % Neutrophils # (1.3-7.7) k/uL Lymphocytes # (1.0-4.8) k/uL Monocytes # (0-1.0) k/uL Eosinophils # (0-0.7) k/uL Basophils # (0-0.2) k/uL Sodium (137-145) mmol/L Potassium (3.5-5.1) mmol/L Chloride (98-107) mmol/L Carbon Dioxide (22-30) mmol/L Anion Gap mmol/L BUN (7-17) mg/dL Creatinine (0.52-1.04) mg/dL Est GFR (CKD-EPI)AfAm (>60 ml/min/1.73 sqM) Est GFR (CKD-EPI)NonAf (>60 ml/min/1.73 sqM) Glucose (74-99) mg/dL Plasma Lactic Acid Joce 2.8 H* (0.7-2.0) mmol/L Calcium (8.4-10.2) mg/dL Phosphorus (2.5-4.5) mg/dL Magnesium (1.6-2.3) mg/dL Total Bilirubin (0.2-1.3) mg/dL AST (14-36) U/L ALT (4-34) U/L Alkaline Phosphatase (38-126) U/L Total Protein (6.3-8.2) g/dL Albumin (3.5-5.0) g/dL Urine Color Dark Yellow Urine Appearance Clear (Clear) Urine pH 5.5 (5.0-8.0) Ur Specific [place] 1.028 (1.001-1.035) Urine Protein Negative (Negative) Urine Glucose (UA) Negative (Negative) Urine Ketones Negative (Negative) Urine Blood Negative (Negative) Urine Nitrite Negative (Negative) Urine Bilirubin Negative (Negative) Urine Urobilinogen <2.0 (<2.0) mg/dL Ur Leukocyte Esterase Negative (Negative) Urine HCG, Qual (Not Detectd) Influenza Type A RNA Not Detected (Not Detectd) Influenza Type B (PCR) Not Detected (Not Detectd) - EKG Data -: EKG Interpreted by Me (and Dr. Bahena) EKG Comments: Ventricular rate 110, appearance 142, QRS 88, QT/QTC 358/44. Sinus tachycardia, no significant change from prior, no concern for acute ischemia. Disposition Clinical Impression: Fever, Tachycardia Disposition: HOME SELF-CARE Condition: Stable Instructions (If sedation given, give patient instructions): Fever in Adults (ED) Additional Instructions: Follow-up with primary care provider tomorrow. Continue to drink lots of f luids. Return to ER if condition worsens in any way. Is patient prescribed a controlled substance at d/c from ED?: No Referrals: Julissa Montano III, MD [Primary Care Provider] - 1-2 days
[2020-01-16 18:23] VITALS: BP 135/89; PULSE 117
== END 2020-01-16 18:23 | disposition home or self-care (01) ==
LOC: EC 15:31
DX: R00.0 Tachycardia, unspecified (principal); R50.9 Fever, unspecified; E83.42 Hypomagnesemia; E11.65 Type 2 diabetes mellitus with hyperglycemia; D72.829 Elevated white blood cell count, unspecified; R74.0 Nonspecific elevation of levels of transaminase and lactic acid dehydrogenase [LDH]; R52 Pain, unspecified; R05 Cough; M32.9 Systemic lupus erythematosus, unspecified; E11.43 Type 2 diabetes mellitus with diabetic autonomic (poly)neuropathy; K31.84 Gastroparesis; E06.3 Autoimmune thyroiditis; E11.42 Type 2 diabetes mellitus with diabetic polyneuropathy; Z88.1 Allergy status to other antibiotic agents; Z88.2 Allergy status to sulfonamides; Z88.7 Allergy status to serum and vaccine; Z88.8 Allergy status to other drugs, medicaments and biological substances; Z91.010 Allergy to peanuts; Z79.4 Long term (current) use of insulin; Z79.51 Long term (current) use of inhaled steroids; Z79.890 Hormone replacement therapy; Z79.899 Other long term (current) drug therapy; Z86.14 Personal history of Methicillin resistant Staphylococcus aureus infection; Z82.49 Family history of ischemic heart disease and other diseases of the circulatory system; Z83.3 Family history of diabetes mellitus
CPT/HCPCS: 36415; 71046; 80053; 81003; 81025; 83605; 83735; 84100; 85025; 87502; 93005; 96360; 96361; 99285

== ENCOUNTER → 2020-05-22 | Outpatient (CLI) | payer MEDICARE, OTHER ==
--- NOTE | 2020-05-22 18:54 | ECHOF ---
Referral Reason:R06.02 SOB MEASUREMENTS -------- HEIGHT: 165.1 cm WEIGHT: 108.9 kg BP: RVIDd: 2.9 cm (< 3.3) IVSd: 1.5 cm (0.6 - 1.1) LVIDd: 3.0 cm (3.9 - 5.3) LVPWd: 1.4 cm (0.6 - 1.1) IVSs: 1.8 cm LVIDs: 2.2 cm LVPWs: 1.7 cm LAESV Index (A-L): 22.23 ml/m Ao Diam: 3.3 cm (2.0 - 3.7) AV Cusp: 2.1 cm (1.5 - 2.6) MV E Ector: 0.97 m/s MV DecT: 157 ms MV A Ector: 0.74 m/s MV E/A Ratio: 1.31 RAP: 5.00 mmHg RVSP: 35.73 mmHg FINDINGS -------- Sinus rhythm. This was a technically adequate study. The left ventricular size is normal. There is moderate concentric left ventricular hypertrophy. O verall left ventricular systolic function is normal with, an EF between 55 - 60 %. The diastolic fi lling pattern is normal for the age of the patient 13.77. The right ventricle is normal in size. Normal LA size by volume 22+/-6 ml/m2. The right atrial size is normal. Interatrial and interventricular septum intact. There is no evidence of aortic regurgitation. There is no evidence of aortic stenosis. No mitral regurgitation. Mild tricuspid regurgitation present. There is borderline pulmonary artery hypertension. The rig t ventricular systolic pressure, as measured by Doppler, is 35.73mmHg. There is no pulmonic regurgitation present. There is no pericardial effusion. CONCLUSIONS -------- 1. Sinus rhythm. 2. This was a technically adequate study. 3. The left ventricular size is normal. 4. There is moderate concentric left ventricular hypertrophy. 5. Overall left ventricular systolic function is normal with, an EF between 55 - 60 %. 6. The diastolic filling pattern is normal for the age of the patient 13.77 7. The right ventricle is normal in size. 8. Normal LA size by volume 22+/-6 ml/m2. 9. The right atrial size is normal. 10. Interatrial and interventricular septum intact. 11. There is no evidence of aortic regurgitation. 12. There is no evidence of aortic stenosis. 13. No mitral regurgitation. 14. Mild tricuspid regurgitation present. 15. There is borderline pulmonary artery hypertension. 16. The right ventricular systolic pressure, as measured by Doppler, is 35.73mmHg. 17. There is no pulmonic regurgitation present. 18. There is no pericardial effusion. PIANO BUILDER: Charlee Juarez RDCS
== END | disposition home or self-care (01) ==
LOC: RADECHMAIN 13:57
PROVIDERS: ATTEND Family Medicine
DX: I07.1 Rheumatic tricuspid insufficiency (principal); I27.21 Secondary pulmonary arterial hypertension
CPT/HCPCS: 93306

== ENCOUNTER → 2020-07-24 | Outpatient (CLI) | payer MEDICARE, OTHER ==
[~2020-07-24] MED LIST changes: +DOBUTamine DRIP for NUC MED 500 MG in DEXTROSE/WATER 1 250ML.BAG IV ONE; -IOPAMIDOL-250 50ML BTL IV ONE; -SODIUM CHLORIDE 0.9% 1,000 ML IV SCH
--- NOTE | 2020-07-24 12:11 | P.STRESS ---
- Stress Test Note Stress Test Results/Findings: Exam Performed: dobutamine stress echo with con Exam Date: 07/24/20 Reason for Exam: Shortness of breath Height: 5 ft 5 in Weight: 250 kg Protocol: Dobutamine stress echo Stage: 3 Duration of Exercise: 9:49 Resting Heart Rate: 94 Resting Blood Pressure: 95/68 Maximum Achieved Heart Rate: 158 Maximum Achieved Blood Pressure: 133/72 85% PMHR: 154 100% PMHR: 181 METS: Technologist Comment: Stress Test Results/Findings: Patient underwent dobutamine stress echo with infusion of dobutamine into Stage 3 for a total of 9 minutes 49 seconds. Patient's maximum heart rate was 158 which represented 87 % age-predicted maximum heart rate. Stress EKG portion: At baseline patient's EKG showed normal sinus rhythm with a heart rate of 94 bpm, normal axis, nonspecific T-wave inversions in V1 and V2. At peak dobutamine infusion, EKG showed nonspecific 0.[address] depression in the inferior leads which resolved in recovery. Stress echo portion: 2-D echocardiogram was performed in the parasternal long, personal short, apical 2 and apical four-chamber views at rest, low-dose, peak infusion and in recovery. At baseline, echocardiogram showed left ventricular ejection fraction [] without wall motion abnormalities. With peak infusion, echocardiogram shows improvement in left ventricular ejection fraction, increase LV thickness, increase contractility, decrease in left ventricular dimension without wall motion abnormalities consistent with a normal response to dobutamine. Conclusions: 1. Normal stress EKG and echo response to dobutamine infusion without any evidence of inducible ischemia.
== END | disposition home or self-care (01) ==
LOC: RADNMMAIN 08:36
PROVIDERS: ATTEND Internal Medicine Interventional Cardiology
DX: I10 Essential (primary) hypertension (principal); R06.02 Shortness of breath; Z88.0 Allergy status to penicillin; Z88.2 Allergy status to sulfonamides; Z88.8 Allergy status to other drugs, medicaments and biological substances
CPT/HCPCS: C8930; J1250; Q9950; 93351

== ENCOUNTER 2020-09-19 17:25 | Observation (INO) | payer MEDICARE, OTHER ==
[2020-09-19] MEDS ORDERED: ACETAMINOPHEN TAB 500 MG TAB PO STA (17:56)
[2020-09-19] MEDS ORDERED: SODIUM CHLORIDE 0.9% 500 ML 500 ML IV STA (17:56)
[2020-09-19 18:14] LABS: Basophils # (A) 0.1 k/uL (0-0.2); Basophils % (A) 1 %; Eosinophils # (A) 0.1 k/uL (0-0.7); Eosinophils % (A) 1 %; HCT 40.9 % (34.0-46.0); HGB 13.3 gm/dL (11.4-16.0); Lymphocytes # (A) 0.5 k/uL (1.0-4.8); Lymphocytes % (A) 6 %; MCHC 32.6 g/dL (31.0-37.0); Mean Platelet Volume 6.9; Monocytes # (A) 0.4 k/uL (0-1.0); Monocytes % (A) 5 %; Neutrophils # (A) 7.5 k/uL (1.3-7.7); Neutrophils % (A) 87 %; Platelet Count 270 k/uL (150-450); RBC 4.44 m/uL (3.80-5.40); RDW 13.5 % (11.5-15.5); WBC 8.7 k/uL (3.8-10.6)
[2020-09-19 18:18] LABS: Appearance,Urine Clear (Clear); Bilirubin,Urine Negative (Negative); Blood,Urine Negative (Negative); Color,Urine Yellow; Glucose,Urine (UA) Negative (Negative); Ketones,Urine Negative (Negative); Leukocyte Esterase,Urine Negative (Negative); Nitrite,Urine Negative (Negative); PH, Urine 6.5 (5.0-8.0); Protein,Urine Negative (Negative); Specific Gravity,Urine 1.022 (1.001-1.035); Urobilinogen,Urine <2.0 mg/dL (<2.0)
--- NOTE | 2020-09-19 18:44 | XR ---
EXAMINATION TYPE: XR chest 2V DATE OF EXAM: 09/19/2020 COMPARISON: 01/16/2020 HISTORY: Fever TECHNIQUE: FINDINGS: Heart and mediastinum are normal. Lungs are clear. Diaphragm is normal. There is right cent ral venous catheter with tip in the superior vena cava. Bony thorax is intact. IMPRESSION: Normal chest. No change.
[2020-09-19] MEDS ORDERED: SODIUM CHLORIDE 0.9% 1,000 ML IV ONE (18:47)
[2020-09-19 18:49] LABS: ALT 21 U/L (4-34); AST 33 U/L (14-36); African American GFR (CKD) >90 (>60 ml/min/1.73 sqM); Albumin 4.8 g/dL (3.5-5.0); Alkaline Phosphatase 66 U/L (38-126); Anion Gap 15 mmol/L; Blood Urea Nitrogen 11 mg/dL (7-17); Calcium 10.3 mg/dL (8.4-10.2); Carbon Dioxide 18 mmol/L (22-30); Chloride 105 mmol/L (98-107); Glucose 153 mg/dL (74-99); Non-African American GFR(CKD) >90 (>60 ml/min/1.73 sqM); Potassium 4.5 mmol/L (3.5-5.1); Sodium 138 mmol/L (137-145); Total Bilirubin 0.4 mg/dL (0.2-1.3); Total Protein 7.5 g/dL (6.3-8.2)
--- NOTE | 2020-09-19 18:52 | ED ---
General Adult HPI - General Chief complaint: Fever Stated complaint: fever/has port Time Seen by Provider: 09/19/20 17:41 Source: patient, RN notes reviewed, old records reviewed Mode of arrival: ambulatory Limitations: no limitations - History of Present Illness Initial comments: 40-year-old female presenting for evaluation of nasal congestion and fever. Patient has a Mediport for infusion.. She was concerned that she may have developed an infection although she has no complaints at the site of her Mediport and does complain of nasal congestion and rhinorrhea. She denies sore throat. She denies significant cough. She has some mild dyspnea. She additionally has abdominal discomfort and vomiting. She has a mild headache. She denies dysuria or hematuria. - Related Data Home Medications Medication Instructions Recorded Confirmed tiZANidine [Zanaflex] 4 mg PO BID@0900,1500 12/04/18 12/28/19 Levothyroxine Sodium [Synthroid] 100 mcg PO DAILY 01/16/19 12/28/19 Cyanocobalamin (Vitamin B-12) 2,000 mcg PO DAILY 01/22/19 12/28/19 [Vitamin B-12] traMADol HCL [Ultram] 50 mg PO BID PRN 06/28/19 12/28/19 Methenamine Hippurate 1 gm PO BID 07/12/19 12/28/19 Ergocalciferol [Vitamin D2 50,000 unit PO TAYLOR 10/08/19 12/28/19 (DRISDOL)] Fluticasone Nasal [place] [Flonase 1 spray EA NOSTRIL HS 10/08/19 12/28/19 Nasal [place]a] Insulin Aspart [NovoLOG Flexpen] See Protocol SQ ACHS 10/08/19 12/28/19 Mirabegron [Myrbetriq] 25 mg PO DAILY 10/08/19 12/28/19 Acetaminophen Tab [Tylenol] 650 mg PO Q6H PRN 11/29/19 12/28/19 [place] Carbonate 600 mg PO HS 11/29/19 12/28/19 Prochlorperazine Suppository 25 mg RECTAL Q8H PRN 11/29/19 12/28/19 [Compazine] Promethazine [Phenergan] 25 mg PO Q6H PRN 11/30/19 12/28/19 Levothyroxine Sodium [Synthroid] 125 mcg PO DAILY 12/28/19 12/28/19 Previous Rx's Medication Instructions Recorded modafiniL [Provigil] 200 mg PO DAILY tab 03/07/19 Fenofibrate [Lofibra] 160 mg PO HS tab 10/17/19 Gabapentin [Neurontin] 400 mg PO TID cap 10/17/19 Metoclopramide [Reglan] 10 mg PO ACHS tab 10/17/19 Metoprolol Succinate (ER) [Toprol 50 mg PO DAILY tab.er.24h 10/17/19 XL] Ondansetron [Zofran] 8 mg PO Q6H PRN tab 10/17/19 Rivaroxaban [Xarelto] 20 mg PO HS tab 10/17/19 Trimethoprim [Trimpex] 100 mg PO HS tab 10/17/19 busPIRone HCL [Buspar] 30 mg PO BID 28 Days tab 10/17/19 cloNIDine HCL [Catapres] 0.1 mg PO HS tab 10/17/19 tiZANidine [Zanaflex] 8 mg PO HS tab 10/17/19 traZODone HCL [Desyrel] 200 mg PO HS #28 tab 10/17/19 Dicyclomine [Bentyl] 20 mg PO QID PRN #8 tab 12/04/19 Insulin Detemir (Levemir) [Levemir] 40 unit SQ HS #1 vial 12/04/19 Insulin Regular [humuLIN R] 5 unit SQ AC-TID #1 vial 12/04/19 Pantoprazole [Protonix] 40 mg PO AC-BRKFST #30 tablet. 12/04/19 Allergies Allergy/AdvReac Type Severity Reaction Status Date / Time barium sulfate Allergy Anaphylaxis Verified 01/16/20 15:37 doxepin [Doxepin] Allergy Anaphylaxis Verified 09/19/20 17:31 ephedrine Allergy Unknown Verified 09/19/20 17:31 ertapenem [From Invanz] Allergy Rash/Hives Verified 09/19/20 17:31 influenza virus vaccine, Allergy severe Verified 09/19/20 17:31 specific swelling [Influenza Virus and hives Vacc,Specific] peanut oil AdvReac Severe Nausea & Verified 09/19/20 17:31 Vomiting,itching doxycycline AdvReac Nausea & Verified 09/19/20 17:31 Vomiting & Diarrhea peanut AdvReac Nausea & Verified 09/19/20 17:31 Vomiting Pertussis Vaccines AdvReac fever/seizu Verified 09/19/20 17:31 re pseudoephedrine AdvReac Chest Pain Verified 09/19/20 17:31 pseudoephedrine HCl AdvReac Chest Pain Verified 09/19/20 17:31 [From Sudafed] sulfamethoxazole AdvReac Nausea & Verified 09/19/20 17:31 [From Bactrim] Vomiting trimethoprim [From Bactrim] AdvReac Nausea & Verified 09/19/20 17:31 Vomiting Review of Systems ROS Statement: Those systems with pertinent positive or pertinent negative responses have been documented in the HPI. ROS Other: All systems not noted in ROS Statement are negative. Past Medical History Past Medical History: Chest Pain / Angina, CVA/TIA, Diabetes Mellitus, Deep Vein Thrombosis (DVT), Neurologic Disorder, Syncope, Thyroid Disorder Additional Past Medical History / Comment(s): STROKE LIKE EPISODE D/T MITOCHRONDIAL DISEASE HAD WORK UP DONE AT [facility]. Dysautonomia-progressive neurological disorder, lupus/LUPUS ANTICOAGULANTS, ana maria's disease, lymphedema Lt arm d/t DVTs , v-tach, pituitary microadenoma. patent foramen ovale, narcolepsy, gastropareis, IDDM type II, falls, orthostatic hypotens ion/syncope, migraines with hemiplegia, pernicious anemia, polycystic ovarian syndrome, neuropathy bilateral legs/feet - mild, uti's. History of Any Multi-Drug Resistant Organisms: ESBL, MRSA Date of last positivie culture/infection: 03/09/17 MRSA/ 05/17/18 ESBL MDRO Source:: MRSA LEFT ARM,/ESBL URINE ECOLI Past Surgical History: Uterine Ablation Additional Past Surgical History / Comment(s): colonscopy/egd, angie, PORT-A -CATH INSERTION 04-28-18 Past Anesthesia/Blood Transfusion Reactions: No Reported Reaction Additional Past Anesthesia/Blood Transfusion Reaction / Comment(s): patient states "It takes a lot of anesthesia for my body to react". Pt has received blood in past without reaction. Past Psychological History: Bipolar, Depression Smoking Status: Never smoker Past Alcohol Use History: None Reported Past Drug Use History: None Reported - Past Family History Brother(s) Family Medical History: Diabetes Mellitus, Hyperlipidemia, Hypertension Additional Family Medical History / Comment(s): Patient states she has 1 brother with no major medical problems. Father Family Medical History: Diabetes Mellitus, Hyperlipidemia, Hypertension Additional Family Medical History / Comment(s): DAD IS 70 YEARS OLD. Patient states she does not have any contact with her father and does not know his medical history. Mother Family Medical History: CVA/TIA, Deep Vein Thrombosis (DVT) Additional Family Medical History / Comment(s): antiphospholipid antibody syndrome General Exam Limitations: no limitations General appearance: alert, in no apparent distress Head exam: Present: atraumatic, normocephalic Eye exam: Present: normal appearance, PERRL ENT exam: Present: normal oropharynx, other (nasal congestion) Neck exam: Present: normal inspection, tenderness, full ROM. Absent: meningismus Respiratory exam: Present: normal lung sounds bilaterally, accessory muscle use (mediport site is clean, dry, intact, no erythema or induration). Absent: respiratory distress Cardiovascular Exam: Present: normal rhythm, tachycardia GI/Abdominal exam: Present: soft. Absent: distended, tenderness, guarding Extremities exam: Present: normal inspection, normal capillary refill. Absent: pedal edema, calf tenderness Neurological exam: Present: alert, oriented X3, CN II-XII intact. Absent: motor sensory deficit Psychiatric exam: Present: normal affect, normal mood Skin exam: Present: warm, dry, intact. Absent: cyanosis, diaphoretic, erythema Course Vital Signs 09/19/20 09/19/20 17:29 19:14 Temperature 102.7 F H 100.7 F H Pulse Rate 122 H Respiratory 20 Rate Blood Pressure 161/85 O2 Sat by Pulse 97 Oximetry Medical Decision Making - Medical Decision Making 40 yo female presented for evaluation of viral like syndrome, possible covid. Patient is febrile and tachycardic on arrival. She hasmultiple complaints over several systems, likely suggesting a viral cause. Chest x-rays negative for focal pneumonia, she has normal CBC, CMP shows metabolic acidosis with a lactic acidosis of 4.0 which is likely related to dehydration. Urinalysis is negative for infection, blood cultures have been obtained given that she has an indwelling port. She will be admitted for IV hydration and antipyretics awaiting additional workup. Case discussed with Dr. Taylor who will admit. - Lab Data Result diagrams: 09/19/20 18:04 09/19/20 18:04 Lab Results 09/19/20 09/19/20 09/19/20 Range/Units 18:04 18:04 18:04 WBC 8.7 (3.8-10.6) k/uL RBC 4.44 (3.80-5.40) m/uL Hgb 13.3 (11.4-16.0) gm/dL Hct 40.9 (34.0-46.0) % MCV 92.0 (80.0-100.0) fL MCH 30.0 (25.0-35.0) pg MCHC 32.6 (31.0-37.0) g/dL RDW 13.5 (11.5-15.5) % Plt Count 270 (150-450) k/uL Neutrophils % 87 % Lymphocytes % 6 % Monocytes % 5 % Eosinophils % 1 % Basophils % 1 % Neutrophils # 7.5 (1.3-7.7) k/uL Lymphocytes # 0.5 L (1.0-4.8) k/uL Monocytes # 0.4 (0-1.0) k/uL Eosinophils # 0.1 (0-0.7) k/uL Basophils # 0.1 (0-0.2) k/uL Sodium 138 (137-145) mmol/L Potassium 4.5 (3.5-5.1) mmol/L Chloride 105 (98-107) mmol/L Carbon Dioxide 18 L (22-30) mmol/L Anion Gap 15 mmol/L BUN 11 (7-17) mg/dL Creatinine 0.76 (0.52-1.04) mg/dL Est GFR (CKD-EPI)AfAm >90 (>60 ml/min/1.73 sqM) Est GFR (CKD-EPI)NonAf >90 (>60 ml/min/1.73 sqM) Glucose 153 H (74-99) mg/dL Plasma Lactic Acid Joce (0.7-2.0) mmol/L Calcium 10.3 H (8.4-10.2) mg/dL Total Bilirubin 0.4 (0.2-1.3) mg/dL AST 33 (14-36) U/L ALT 21 (4-34) U/L Alkaline Phosphatase 66 (38-126) U/L Total Protein 7.5 (6.3-8.2) g/dL Albumin 4.8 (3.5-5.0) g/dL Urine Color Yellow Urine Appearance Clear (Clear) Urine pH 6.5 (5.0-8.0) Ur Specific [place] 1.022 (1.001-1.035) Urine Protein Negative (Negative) Urine Glucose (UA) Negative (Negative) Urine Ketones Negative (Negative) Urine Blood Negative (Negative) Urine Nitrite Negative (Negative) Urine Bilirubin Negative (Negative) Urine Urobilinogen <2.0 (<2.0) mg/dL Ur Leukocyte Esterase Negative (Negative) 09/19/20 Range/Units 18:04 WBC (3.8-10.6) k/uL RBC (3.80-5.40) m/uL Hgb (11.4-16.0) gm/dL Hct (34.0-46.0) % MCV (80.0-100.0) fL MCH (25.0-35.0) pg MCHC (31.0-37.0) g/dL RDW (11.5-15.5) % Plt Count (150-450) k/uL Neutrophils % % Lymphocytes % % Monocytes % % Eosinophils % % Basophils % % Neutrophils # (1.3-7.7) k/uL Lymphocytes # (1.0-4.8) k/uL Monocytes # (0-1.0) k/uL Eosinophils # (0-0.7) k/uL Basophils # (0-0.2) k/uL Sodium (137-145) mmol/L Potassium (3.5-5.1) mmol/L Chloride (98-107) mmol/L Carbon Dioxide (22-30) mmol/L Anion Gap mmol/L BUN (7-17) mg/dL Creatinine (0.52-1.04) mg/dL Est GFR (CKD-EPI)AfAm (>60 ml/min/1.73 sqM) Est GFR (CKD-EPI)NonAf (>60 ml/min/1.73 sqM) Glucose (74-99) mg/dL Plasma Lactic Acid Joce 4.0 H* (0.7-2.0) mmol/L Calcium (8.4-10.2) mg/dL Total Bilirubin (0.2-1.3) mg/dL AST (14-36) U/L ALT (4-34) U/L Alkaline Phosphatase (38-126) U/L Total Protein (6.3-8.2) g/dL Albumin (3.5-5.0) g/dL Urine Color Urine Appearance (Clear) Urine pH (5.0-8.0) Ur Specific [place] (1.001-1.035) Urine Protein (Negative) Urine Glucose (UA) (Negative) Urine Ketones (Negative) Urine Blood (Negative) Urine Nitrite (Negative) Urine Bilirubin (Negative) Urine Urobilinogen (<2.0) mg/dL Ur Leukocyte Esterase (Negative) Disposition Clinical Impression: Lactic acidosis, Viral syndrome, Dehydration Disposition: ADMITTED IP TO THIS [facility] Condition: Stable Is patient prescribed a controlled substance at d/c from ED?: No Referrals: Julissa Montano III, MD [Primary Care Provider] - 1-2 days Decision to Admit Reason: Admit from EC Decision Date: 09/19/20 Decision Time: 19:58
[2020-09-19] MEDS ORDERED: NALOXONE 0.4 MG/ML 1 ML VIAL IV PRN (19:50)
[2020-09-19] MEDS: SODIUM CHLORIDE 0.9% 1,000 ML IV SCH ×2 (23:45→23:49)
[2020-09-20] MEDS: SODIUM CHLORIDE 0.9% 1,000 ML IV SCH ×3 (00:35→14:37)
[2020-09-20] MEDS: ACETAMINOPHEN TAB 325 MG TAB PO PRN (01:06)
[2020-09-20 06:42] LABS: Glucose,Whole Blood 190 mg/dL (75-99)
[2020-09-20] MEDS: ONDANSETRON 4 MG/2 ML VIAL IVP PRN ×2 (08:35→15:29)
[2020-09-20 08:57] LABS: African American GFR (CKD) >90 (>60 ml/min/1.73 sqM); Anion Gap 8 mmol/L; Blood Urea Nitrogen 11 mg/dL (7-17); Carbon Dioxide 22 mmol/L (22-30); Chloride 108 mmol/L (98-107); Glucose 158 mg/dL (74-99); Non-African American GFR(CKD) >90 (>60 ml/min/1.73 sqM); Potassium 4.1 mmol/L (3.5-5.1); Sodium 138 mmol/L (137-145)
[2020-09-20 09:07] LABS: Basophils % (A) 1 %; Eosinophils # (A) 0.1 k/uL (0-0.7); Eosinophils % (A) 3 %; HCT 36.2 % (34.0-46.0); HGB 11.5 gm/dL (11.4-16.0); Lymphocytes % (A) 20 %; MCH 29.3 pg (25.0-35.0); MCHC 31.6 g/dL (31.0-37.0); MCV 92.7 fL (80.0-100.0); Mean Platelet Volume 6.7; Monocytes # (A) 0.4 k/uL (0-1.0); Monocytes % (A) 7 %; Neutrophils # (A) 3.4 k/uL (1.3-7.7); Neutrophils % (A) 68 %; Platelet Count 258 k/uL (150-450); RBC 3.91 m/uL (3.80-5.40); RDW 13.7 % (11.5-15.5)
[2020-09-20] MEDS: BUTALB/APAP/CAFF 50-325-40MG TAB PO PRN ×2 (09:18→21:02)
[2020-09-20 11:00] LABS: Glucose,Whole Blood 127 mg/dL (75-99)
[2020-09-20] MEDS: INSULIN ASPART (NovoLOG) 100 UNIT/ML VIAL SQ SCH ×3 (11:12→21:05)
[2020-09-20] MEDS ORDERED: SUMAtriptan succinate 50 MG TAB PO PRN (13:24)
[2020-09-20] MEDS ORDERED: ALBUTEROL NEBULIZED 2.5 MG/3 ML INHALATION PRN (13:24)
[2020-09-20] MEDS ORDERED: NON FORMULARY DRUG (Linaclotide [Linzess] 145 MCG Capsule) PO PRN (13:24)
[2020-09-20] MEDS: PANTOPRAZOLE 40 MG TABLET PO SCH (14:33)
[2020-09-20] MEDS: ASCORBIC ACID 500 MG TAB PO SCH (14:34)
[2020-09-20] MEDS: LEVOTHYROXINE 100 MCG TAB PO SCH (14:34)
[2020-09-20] MEDS: GABAPENTIN 400 MG CAP PO SCH ×2 (15:29→21:07)
[2020-09-20 17:03] LABS: Glucose,Whole Blood 106 mg/dL (75-99)
[2020-09-20] MEDS: METHYLPHENIDATE HCL 5 MG TAB PO SCH (17:31)
[2020-09-20 20:36] LABS: Glucose,Whole Blood 129 mg/dL (75-99)
[2020-09-20] MEDS: ATORVASTATIN 10 MG TAB PO SCH (21:02)
[2020-09-20] MEDS: TRIMETHOPRIM 100 MG TAB PO SCH (21:04)
[2020-09-20] MEDS: RIVAROXABAN 20 MG TAB PO SCH (21:05)
[2020-09-20] MEDS: FENOFIBRATE 160 MG TAB PO SCH (21:05)
[2020-09-20] MEDS: busPIRone HCl 10 MG TAB PO SCH (21:05)
[2020-09-20] MEDS: LITHIUM CARBONATE 300 MG CAP PO SCH (21:05)
[2020-09-20] MEDS: INSULIN DETEMIR (LEVEMIR) 100 UNIT/ML SYR SQ SCH (21:06)
[2020-09-20] MEDS: NON FORMULARY DRUG (Methenamine Hippurate [Methenamine Hippurate] 1 GM Tablet) PO SCH (22:23)
[2020-09-21] MEDS: ONDANSETRON 4 MG/2 ML VIAL IVP PRN ×2 (00:32→22:57)
[2020-09-21] MEDS: SODIUM CHLORIDE 0.9% 1,000 ML IV SCH ×3 (02:29→17:34)
[2020-09-21] MEDS: LEVOTHYROXINE 100 MCG TAB PO SCH (05:43)
[2020-09-21 05:49] LABS: Glucose,Whole Blood 163 mg/dL (75-99)
[2020-09-21] MEDS ORDERED: VORTIOXETINE HYDROBROMIDE 20 MG TABLET PO SCH ×2 (09:00→21:00)
[2020-09-21] MEDS: PANTOPRAZOLE 40 MG TABLET PO SCH (09:01)
[2020-09-21] MEDS: GABAPENTIN 400 MG CAP PO SCH ×3 (09:01→21:39)
[2020-09-21] MEDS: ACETAMINOPHEN TAB 325 MG TAB PO PRN (09:01)
[2020-09-21] MEDS: FERROUS SULFATE 325 MG TAB PO SCH (09:01)
[2020-09-21] MEDS: ASCORBIC ACID 500 MG TAB PO SCH (09:02)
[2020-09-21] MEDS: METHYLPHENIDATE HCL 5 MG TAB PO SCH ×2 (09:02→17:32)
[2020-09-21] MEDS: NON FORMULARY DRUG (Mirabegron [Myrbetriq] 25 MG Tab.Er.24h) PO SCH (09:02)
[2020-09-21] MEDS: NON FORMULARY DRUG (Methenamine Hippurate [Methenamine Hippurate] 1 GM Tablet) PO SCH ×2 (09:02→22:04)
[2020-09-21] MEDS: METOPROLOL SUCCINATE (ER) 50 MG TAB.ER.24H PO SCH (09:02)
[2020-09-21] MEDS: busPIRone HCl 10 MG TAB PO SCH ×2 (09:02→21:35)
[2020-09-21] MEDS: INSULIN ASPART (NovoLOG) 100 UNIT/ML VIAL SQ SCH ×4 (09:02→21:38)
[2020-09-21 09:39] LABS: Basophils % (A) 0 %; Eosinophils # (A) 0.2 k/uL (0-0.7); Eosinophils % (A) 4 %; HCT 36.9 % (34.0-46.0); HGB 11.6 gm/dL (11.4-16.0); Lymphocytes # (A) 1.3 k/uL (1.0-4.8); Lymphocytes % (A) 19 %; MCH 29.1 pg (25.0-35.0); MCHC 31.4 g/dL (31.0-37.0); MCV 92.7 fL (80.0-100.0); Mean Platelet Volume 7.3; Monocytes # (A) 0.4 k/uL (0-1.0); Monocytes % (A) 7 %; Neutrophils # (A) 4.6 k/uL (1.3-7.7); Neutrophils % (A) 69 %; Platelet Count 258 k/uL (150-450); RBC 3.98 m/uL (3.80-5.40); WBC 6.7 k/uL (3.8-10.6)
[2020-09-21 09:45] LABS: African American GFR (CKD) >90 (>60 ml/min/1.73 sqM); Anion Gap 5 mmol/L; Blood Urea Nitrogen 7 mg/dL (7-17); C Reactive Protein 41.5 mg/L (<10.0); Calcium 8.8 mg/dL (8.4-10.2); Carbon Dioxide 23 mmol/L (22-30); Chloride 111 mmol/L (98-107); Glucose 169 mg/dL (74-99); LDH 363 U/L (313-618); Non-African American GFR(CKD) >90 (>60 ml/min/1.73 sqM); Potassium 3.9 mmol/L (3.5-5.1); Sodium 139 mmol/L (137-145)
[2020-09-21 11:56] LABS: Glucose,Whole Blood 132 mg/dL (75-99)
[2020-09-21 16:32] LABS: Ferritin 94.2 ng/mL (10.0-291.0)
[2020-09-21 17:06] LABS: Glucose,Whole Blood 134 mg/dL (75-99)
[2020-09-21 20:03] LABS: Glucose,Whole Blood 133 mg/dL (75-99)
[2020-09-21] MEDS: FENOFIBRATE 160 MG TAB PO SCH (21:35)
[2020-09-21] MEDS: LITHIUM CARBONATE 300 MG CAP PO SCH (21:36)
[2020-09-21] MEDS: TRIMETHOPRIM 100 MG TAB PO SCH (21:37)
[2020-09-21] MEDS: INSULIN DETEMIR (LEVEMIR) 100 UNIT/ML SYR SQ SCH (21:38)
[2020-09-21] MEDS: RIVAROXABAN 20 MG TAB PO SCH (21:38)
[2020-09-21] MEDS: ATORVASTATIN 10 MG TAB PO SCH (21:39)
--- NOTE | 2020-09-21 22:46 | P.HPIM ---
History of Present Illness H&P Date: 09/20/20 Chief Complaint: Nasal congestion and fever Ms. Khoury is a 40-year-old female with a past medical history of diabetes mellitus, DVT, stroke like episode, dysautonomia progressive neurological disorder, lupus anticoagulant positive, Ana Maria's disease, lymphedema of left arm, P due to microadenoma, patent foramen ovale, narcolepsy, gastroparesis, orthostatic hypotension, migraines with hemiplegia, pernicious anemia, pCO2, multiple UTIs, neurogenic bladder, stress incontinence coming in the hospital with the chief complaints of nasal congestion and fever. Patient states that she has been having nasal discharge with congestion for the past 2-3 days. She denies having any sore throat. No cough or difficulty in breathing. Patient denies having any hematuria or dysuria. She mentions that her mother at home has been sick with sinusitis recently. Patient denies having any exposure to COVID . Patient denies having any chest pain, palpitations or lower extremity swelling. Patient denies having any cough or hemoptysis. No abdominal pain or vomiting. Patient states she's been slightly nauseous but did not throw up. Patient denies having any hematuria or dysuria. Patient has a Mediport in place, she denies having any pain or swelling or redness around the Mediport area. In the emergency patient had a fever of 102.7 and tachycardic at 112. Her saturation was 97% on room air. Blood pressure 1 61 x 85. She had a chest x- ray showing clear lungs and there is a right central venous catheter tip in the superior vena cava. She had labs done showing white count of 5, hemoglobin 11.5, platelets of 258, sodium 138, potassium 4.1, chloride 108, bicarb 22. BUN 11 creatinine 0.63, lactic acid of 1.3 and calcium of 9. Patient had Covid 19 PCR pending, blood cultures have been drawn and currently pending. Currently patient is lying comfortably in the bed appears to be in no acute distress. Reviewed vitals temperature 99.2, heart rate 71, blood pressure 134.9, saturating at 97% on room air. Review of Systems REVIEW OF SYSTEMS: PSYCH: No anxiety or depression NEURO: No new weakness of her extremities. VASCULAR: no edema HEMATOLOGIC: No history of easy bleeding and bruising . No recent infections . RESPIRATORY: No cough, No SOB, No chest discomfort. IMMUNE: No recent infections INTEGUMENT: no rashes OPHTHALMOLOGIC: No blurry vision and no eye discharge : No dysuria or hematuria SOFTBALL CORE MOLDER: No bleeding PV CARDIAC: No chest pain , shortness of breath , paroxysmal nocturnal dyspnea MUSCULOSKELETAL : No Aches or pains in the joints or muscles. GI: No abdominal pain, Nausea or vomiting. No constipation or diarrhea. Past Medical History Past Medical History: Chest Pain / Angina, CVA/TIA, Diabetes Mellitus, Deep Vein Thrombosis (DVT), Neurologic Disorder, Syncope, Thyroid Disorder Additional Past Medical History / Comment(s): STROKE LIKE EPISODE D/T MITOCHRONDIAL DISEASE HAD WORK UP DONE AT [facility]. Dysautonomia-progressive neurological disorder, lupus/LUPUS ANTICOAGULANTS, ana maria's disease, lymphedema Lt arm d/t DVTs , v-tach, pituitary microadenoma. patent foramen ovale, narcolepsy, gastropareis, IDDM type II, falls, orthostatic hypote nsion/syncope, migraines with hemiplegia, pernicious anemia, polycystic ovarian syndrome, neuropathy bilateral legs/feet - mild, uti's. neurogenic bladder, stress incontinence History of Any Multi-Drug Resistant Organisms: ESBL, MRSA Date of last positivie culture/infection: 03/09/17 MRSA/ 05/17/18 ESBL MDRO Source:: MRSA LEFT ARM,/ESBL URINE ECOLI Past Surgical History: Uterine Ablation Additional Past Surgical History / Comment(s): colonscopy/egd, angie, PORT-A -CATH INSERTION 04-28-18 Past Anesthesia/Blood Transfusion Reactions: No Reported Reaction Additional Past Anesthesia/Blood Transfusion Reaction / Comment(s): patient states "It takes a lot of anesthesia for my body to react". Pt has received blood in past without reaction. Past Psychological History: Bipolar, Depression Additional Psychological History / Comment(s): Single and lives with her mother. No experience. No tobacco or alcohol use Smoking Status: Never smoker Past Alcohol Use History: None Reported Additional Past Alcohol Use History / Comment(s): Patient is a lifelong nonsmoker. She denies any medical marijuana, marijuana, street drug or alcohol use. She resides with her mom. She can walk short distances and otherwise uses a wheelchair. She has a walker. She does not drive but usually gets appoint ments by Bus. She has history of suicide attempt in 2015 but states depression is stable. No animal exposures. Patient is single without children. Patient denies any family members with her genetic disorder. Past Drug Use History: None Reported - Past Family History Brother(s) Family Medical History: Diabetes Mellitus, Hyperlipidemia, Hypertension Additional Family Medical History / Comment(s): Patient states she has 1 brother with no major medical problems. Father Family Medical History: Diabetes Mellitus, Hyperlipidemia, Hypertension Additional Family Medical History / Comment(s): DAD IS 70 YEARS OLD. Patient states she does not have any contact with her father and does not know his medical history. Mother Family Medical History: CVA/TIA, Deep Vein Thrombosis (DVT) Additional Family Medical History / Comment(s): antiphospholipid antibody syndrome Medications and Allergies Home Medications Medication Instructions Recorded Confirmed Type tiZANidine [Zanaflex] 4 mg PO BID@0900,1500 12/04/18 09/19/20 History Levothyroxine Sodium [Synthroid] 100 mcg PO DAILY 01/16/19 09/19/20 History modafiniL [Provigil] 200 mg PO DAILY tab 03/07/19 09/19/20 Rx traMADol HCL [Ultram] 50 mg PO BID PRN 06/28/19 09/19/20 History Methenamine Hippurate 1 gm PO BID 07/12/19 09/19/20 History Ergocalciferol [Vitamin D2 50,000 unit PO TAYLOR 10/08/19 09/19/20 History (DRISDOL)] Insulin Aspart [NovoLOG Flexpen] See Protocol SQ ACHS 10/08/19 09/19/20 History Mirabegron [Myrbetriq] 25 mg PO DAILY 10/08/19 09/19/20 History Fenofibrate [Lofibra] 160 mg PO HS tab 10/17/19 09/19/20 Rx Gabapentin [Neurontin] 400 mg PO TID cap 10/17/19 09/19/20 Rx Metoprolol Succinate (ER) [Toprol 50 mg PO DAILY tab.er.24h 10/17/19 09/19/20 Rx XL] Ondansetron [Zofran] 8 mg PO Q6H PRN tab 10/17/19 09/19/20 Rx Rivaroxaban [Xarelto] 20 mg PO HS tab 10/17/19 09/19/20 Rx Trimethoprim [Trimpex] 100 mg PO HS tab 10/17/19 09/19/20 Rx busPIRone HCL [Buspar] 30 mg PO BID 28 Days tab 10/17/19 09/19/20 Rx tiZANidine [Zanaflex] 8 mg PO HS tab 10/17/19 09/19/20 Rx traZODone HCL [Desyrel] 200 mg PO HS #28 tab 10/17/19 09/19/20 Rx Acetaminophen Tab [Tylenol] 650 mg PO Q6H PRN 11/29/19 09/19/20 History Pajaro Carbonate 900 mg PO HS 11/29/19 09/19/20 History Prochlorperazine Suppository 25 mg RECTAL Q8H PRN 11/29/19 09/19/20 History [Compazine] Promethazine [Phenergan] 25 mg PO Q6H PRN 11/30/19 09/19/20 History Levothyroxine Sodium [Synthroid] 125 mcg PO MOTUWETHFR 12/28/19 09/19/20 History Albuterol Inhaler [Ventolin Hfa 1 puff INHALATION RT-Q4H PRN 09/19/20 09/19/20 History Inhaler] Ascorbic Acid [Vitamin C] 1,000 mg PO DAILY 09/19/20 09/19/20 History Butalbital/Aspirin/Caffeine 1 tab PO BID PRN 09/19/20 09/19/20 History [Mgeefy-Udkdrhx-Gxtlzueh 50-325-40 mg] Clonidine Er 0.1mg 0.1 mg PO BID 09/19/20 09/19/20 History Dexlansoprazole [Dexilant] 60 mg PO DAILY 09/19/20 09/19/20 History Dicyclomine [Bentyl] 20 mg PO Q8H PRN 09/19/20 09/19/20 History Ferrous Sulfate [Feosol] 325 mg PO DAILY 09/19/20 09/19/20 History Galcanezumab-Gnlm [Emgality] 120 mg SQ Q30D 09/19/20 09/19/20 History Insulin Glargine,Hum.rec.anlog 50 unit SQ HS 09/19/20 09/19/20 History [Lantus Solostar] Linaclotide [Linzess] 145 mcg PO DAILY PRN 09/19/20 09/19/20 History Meloxicam [Mobic] 15 mg PO DAILY 09/19/20 09/19/20 History Methylphenidate HCl [Ritalin] 5 mg PO BID 09/19/20 09/19/20 History Rizatriptan Benzoate [Rizatriptan] 5 mg PO BID PRN 09/19/20 09/19/20 History Rosuvastatin Calcium 5 mg PO HS 09/19/20 09/19/20 History Sodium Chloride 0.9% Iv 500 ml IV MOWEFR 09/19/20 09/19/20 History Vortioxetine Hydrobromide 20 mg PO DAILY 09/19/20 09/19/20 History [Trintellix] Allergies Allergy/AdvReac Type Severity Reaction Status Date / Time barium sulfate Allergy Anaphylaxis Verified 09/19/20 21:22 doxepin [Doxepin] Allergy Anaphylaxis Verified 09/19/20 21:22 ephedrine Allergy Unknown Verified 09/19/20 21:22 ertapenem [From Invanz] Allergy Rash/Hives Verified 09/19/20 21:22 influenza virus vaccine, Allergy severe Verified 09/19/20 21:22 specific swelling [Influenza Virus and hives Vacc,Specific] peanut oil AdvReac Severe Nausea & Verified 09/19/20 21:22 Vomiting,itching doxycycline AdvReac Nausea & Verified 09/19/20 21:22 Vomiting & Diarrhea peanut AdvReac Nausea & Verified 09/19/20 21:22 Vomiting Pertussis Vaccines AdvReac fever/seizu Verified 09/19/20 21:22 re pseudoephedrine AdvReac Chest Pain Verified 09/19/20 21:22 pseudoephedrine HCl AdvReac Chest Pain Verified 09/19/20 21:22 [From Sudafed] sulfamethoxazole AdvReac Nausea & Verified 09/19/20 21:22 [From Bactrim] Vomiting trimethoprim [From Bactrim] AdvReac Nausea & Verified 09/19/20 21:22 Vomiting Physical Exam Vitals: Vital Signs Temp Pulse Pulse Resp BP BP Pulse Ox 09/20/20 08:22 98.4 F 69 16 103/66 96 09/20/20 03:15 98.5 F 80 16 112/72 96 09/19/20 22:58 98.9 F 100 18 09/19/20 22:55 98.9 F 88 18 111/73 96 09/19/20 20:50 99.9 F H 98 09/19/20 20:04 99.9 F H 09/19/20 19:14 100.7 F H 09/19/20 17:29 102.7 F H 122 H 20 161/85 97 Intake and Output 09/19/20 09/20/20 09/20/20 22:59 06:59 14:59 Intake Total 300 2140 Balance 300 2140 Intake: Intake, IV Titration 1560 Amount Sodium Chloride 0.9% 1, 1560 000 ml @ 130 mls/hr IV . Q7H42M [facility] Rx#:[id number] Oral 300 580 Other: Voiding Method Toilet # Voids 2 Weight 111.13 kg PHYSICAL EXAM GEN. APPEARANCE: alert, in no apparent distress HEAD EXAM: atraumatic, normocephalic, normal inspection EYE EXAM: No pallor. No icterus. ENT EXAM: normal exam, mucous membranes moist NECK EXAM: Neck is short and webbed RESPIRATORY EXAM: normal lung sounds bilaterally. No wheezes or crackles. CARDIOVASCULAR EXAM: regular rate, normal rhythm, normal heart sounds. GI/ABDOMINAL EXAM: soft, normal bowel sounds. No tenderness, no distention. No guarding or rigidity. EXTREMITIES EXAM: No pedal edema. There is contractured flexion of the toes bilaterally NEUROLOGICAL EXAM: alert, oriented X3, focal neurological deficits on gross exam PSYCHIATRIC EXAM: normal affect, normal mood SKIN EXAM: warm, dry, intact, normal color. Absent: rash Results CBC & Chem 7: 09/20/20 06:00 09/20/20 06:00 Labs: Abnormal Lab Results - Last 24 Hours (Table) 09/19/20 09/19/20 09/19/20 Range/Units 18:04 18:04 18:04 Lymphocytes # 0.5 L (1.0-4.8) k/uL Chloride (98-107) mmol/L Carbon Dioxide 18 L (22-30) mmol/L Glucose 153 H (74-99) mg/dL POC Glucose (mg/dL) (75-99) mg/dL Plasma Lactic Acid Joce 4.0 H* (0.7-2.0) mmol/L Calcium 10.3 H (8.4-10.2) mg/dL 10/31/20 10/31/20 10/31/20 Range/Units 06:00 06:39 10:59 Lymphocytes # (1.0-4.8) k/uL Chloride 108 H (98-107) mmol/L Carbon Dioxide (22-30) mmol/L Glucose 158 H (74-99) mg/dL POC Glucose (mg/dL) 190 H 127 H (75-99) mg/dL Plasma Lactic Acid Joce (0.7-2.0) mmol/L Calcium (8.4-10.2) mg/dL Thrombosis Risk Factor Assmnt - Choose All That Apply Each Factor Represents 1 point: Obesity (BMI >25) Each Risk Factor Represents 2 Points: Central venous access Each Risk Factor Represents 3 Points: History of DVT/PE Thrombosis Risk Factor Assessment Total Risk Factor Score: 6 Thrombosis Risk Factor Assessment Level: High Risk Assessment and Plan Assessment: ASSESSMENT SIRS - workup in progress Insulin-dependent type 2 diabetes mellitus History of DVT Dysautonomia progressive neurological disorder Lupus anticoagulant Narcolepsy gastroparesis Left arm lymphedema Migraine with hemiplegia Pernicious anemia Polycystic ovarian disease Bilateral lower extremity neuropathy Neurogenic bladder History of ESBL and MRSA History of bipolar depression PLAN: Patient had fever and tachycardia at the time of admission, could be a viral syndrome. Patient was started on IV fluids and admitted for further workup. Will check for influenza A and B. COVID 19 - PCR pending. Blood cultures currently pending. She has been restarted on all her home medications. The treatment plan was discussed in detail with the patient at bedside. Further recommendations to follow depending on the progress of the patient.
--- NOTE | 2020-09-21 22:49 | P.PN ---
Subjective Progress Note Date: 09/21/20 Principal diagnosis: Viral syndrome Ms. Khoury is a 40-year-old female with a past medical history of diabetes mellitus, DVT, stroke like episode, dysautonomia progressive neurological disorder, lupus anticoagulant positive, Emily's disease, lymphedema of left arm, P due to microadenoma, patent foramen ovale, narcolepsy, gastroparesis, orthostatic hypotension, migraines with hemiplegia, pernicious anemia, pCO2, multiple UTIs, neurogenic bladder, stress incontinence coming in the hospital with the chief complaints of nasal congestion and fever. Patient states that she has been having nasal discharge with congestion for the past 2-3 days. She denies having any sore throat. No cough or difficulty in breathing. Patient denies having any hematuria or dysuria. She mentions that her mother at home has been sick with sinusitis recently. Patient denies having any exposure to COVID . Patient denies having any chest pain, palpitations or lower extremity swelling. Patient denies having any cough or hemoptysis. No abdominal pain or vomiting. Patient states she's been slightly nauseous but did not throw up. Patient denies having any hematuria or dysuria. Patient has a Mediport in place, she denies having any pain or swelling or redness around the Mediport area. In the emergency patient had a fever of 102.7 and tachycardic at 112. Her saturation was 97% on room air. Blood pressure 1 61 x 85. She had a chest x- ray showing clear lungs and there is a right central venous catheter tip in the superior vena cava. She had labs done showing white count of 5, hemoglobin 11.5, platelets of 258, sodium 138, potassium 4.1, chloride 108, bicarb 22. BUN 11 creatinine 0.63, lactic acid of 1.3 and calcium of 9. Patient had Covid 19 PCR pending, blood cultures have been drawn and currently pending. Objective - Vital Signs Vital signs: Vital Signs Temp 99.0 F 09/21/20 09:00 Pulse 83 09/21/20 09:00 Resp 16 09/21/20 09:00 BP 132/73 09/21/20 09:00 Pulse Ox 97 09/21/20 09:00 Intake & Output 09/20/20 09/21/20 09/21/20 19:59 06:59 18:59 Intake Total Balance Intake: Intake, IV Titration Amount Sodium Chloride 0.9% 1, 000 ml @ 130 mls/hr IV . Q7H42M [facility] Rx#:[id number] Oral Other: Voiding Method # Voids - Exam PHYSICAL EXAM GEN. APPEARANCE: alert, in no apparent distress HEAD EXAM: atraumatic, normocephalic, normal inspection EYE EXAM: No pallor. No icterus. ENT EXAM: normal exam, mucous membranes moist NECK EXAM: Neck is short and webbed RESPIRATORY EXAM: normal lung sounds bilaterally. No wheezes or crackles. CARDIOVASCULAR EXAM: regular rate, normal rhythm, normal heart sounds. GI/ABDOMINAL EXAM: soft, normal bowel sounds. No tenderness, no distention. No guarding or rigidity. EXTREMITIES EXAM: No pedal edema. There is contractured flexion of the toes bilaterally NEUROLOGICAL EXAM: alert, oriented X3, no focal neurological deficits on gross exam PSYCHIATRIC EXAM: normal affect, normal mood SKIN EXAM: warm, dry, intact, normal color. Absent: rash - Labs CBC & Chem 7: 09/21/20 09:10 09/21/20 09:10 Labs: Abnormal Lab Results - Last 24 Hours (Table) 09/20/20 09/20/20 09/21/20 Range/Units 17:01 20:28 05:44 Chloride (98-107) mmol/L Glucose (74-99) mg/dL POC Glucose (mg/dL) 106 H 129 H 163 H (75-99) mg/dL C-Reactive Protein (<10.0) mg/L 09/21/20 09/21/20 Range/Units 09:10 11:54 Chloride 111 H (98-107) mmol/L Glucose 169 H (74-99) mg/dL POC Glucose (mg/dL) 132 H (75-99) mg/dL C-Reactive Protein 41.5 H (<10.0) mg/L Microbiology - Last 24 Hours (Table) 09/19/20 18:04 Blood Culture - Preliminary Blood No Growth after 24 hours Assessment and Plan Assessment: ASSESSMENT SIRS - workup in progress Insulin-dependent type 2 diabetes mellitus History of DVT Dysautonomia progressive neurological disorder Lupus anticoagulant Narcolepsy gastroparesis Left arm lymphedema Migraine with hemiplegia Pernicious anemia Polycystic ovarian disease Bilateral lower extremity neuropathy Neurogenic bladder History of ESBL and MRSA History of bipolar depression PLAN: Patient had fever and tachycardia at the time of admission, could be a viral syndrome. Iinfluenza A and B negative . COVID 19 - PCR still pending. Blood cultures currently pending. She has been restarted on all her home medications. The treatment plan was discussed in detail with the patient at bedside. Incentive spirometry. On Xarelto for anti coagulation. Further recommendations to follow depending on the progress of the patient.
[2020-09-21] MEDS ORDERED: diphenhydrAMINE 25 MG CAP PO STA (23:30)
[2020-09-21] MEDS ORDERED: diphenhydrAMINE 50 MG CAP PO PRN (23:37)
[2020-09-21] MEDS ORDERED: traZODone HCL 50 MG TAB PO SCH (23:45)
[2020-09-22] MEDS: ACETAMINOPHEN TAB 325 MG TAB PO PRN (00:06)
[2020-09-22 06:26] LABS: Glucose,Whole Blood 133 mg/dL (75-99)
[2020-09-22] MEDS: INSULIN ASPART (NovoLOG) 100 UNIT/ML VIAL SQ SCH ×2 (08:14→11:57)
[2020-09-22] MEDS: NON FORMULARY DRUG (Mirabegron [Myrbetriq] 25 MG Tab.Er.24h) PO SCH (08:16)
[2020-09-22] MEDS: NON FORMULARY DRUG (Methenamine Hippurate [Methenamine Hippurate] 1 GM Tablet) PO SCH (08:16)
[2020-09-22] MEDS: METOPROLOL SUCCINATE (ER) 50 MG TAB.ER.24H PO SCH (08:22)
[2020-09-22] MEDS: GABAPENTIN 400 MG CAP PO SCH (08:23)
[2020-09-22] MEDS: FERROUS SULFATE 325 MG TAB PO SCH (08:23)
[2020-09-22] MEDS: busPIRone HCl 10 MG TAB PO SCH (08:23)
[2020-09-22] MEDS: ASCORBIC ACID 500 MG TAB PO SCH (08:23)
[2020-09-22] MEDS: METHYLPHENIDATE HCL 5 MG TAB PO SCH (08:23)
[2020-09-22] MEDS: PANTOPRAZOLE 40 MG TABLET PO SCH (08:23)
[2020-09-22] MEDS: SODIUM CHLORIDE 0.9% 1,000 ML IV SCH (08:23)
[2020-09-22 08:38] VITALS: BP 114/75; PULSE 73; RESP 14; TEMP 98
[2020-09-22 08:39] LABS: Basophils % (A) 1 %; Eosinophils # (A) 0.2 k/uL (0-0.7); Eosinophils % (A) 4 %; HCT 35.4 % (34.0-46.0); HGB 11.6 gm/dL (11.4-16.0); Lymphocytes # (A) 1.3 k/uL (1.0-4.8); Lymphocytes % (A) 23 %; MCH 30.3 pg (25.0-35.0); MCHC 32.6 g/dL (31.0-37.0); MCV 92.8 fL (80.0-100.0); Mean Platelet Volume 6.8; Monocytes # (A) 0.3 k/uL (0-1.0); Monocytes % (A) 6 %; Neutrophils # (A) 3.7 k/uL (1.3-7.7); Neutrophils % (A) 65 %; Platelet Count 252 k/uL (150-450); RBC 3.82 m/uL (3.80-5.40); RDW 13.6 % (11.5-15.5); WBC 5.7 k/uL (3.8-10.6)
[2020-09-22 08:56] LABS: African American GFR (CKD) >90 (>60 ml/min/1.73 sqM); Anion Gap 6 mmol/L; Blood Urea Nitrogen 6 mg/dL (7-17); Calcium 8.6 mg/dL (8.4-10.2); Carbon Dioxide 21 mmol/L (22-30); Chloride 111 mmol/L (98-107); Glucose 168 mg/dL (74-99); Non-African American GFR(CKD) >90 (>60 ml/min/1.73 sqM); Potassium 3.9 mmol/L (3.5-5.1); Sodium 138 mmol/L (137-145)
--- NOTE | 2020-09-22 09:28 | XR ---
EXAMINATION TYPE: XR chest 1V DATE OF EXAM: 09/22/2020 COMPARISON: 09/19/2020 HISTORY: Fever TECHNIQUE: Single frontal view of the chest is obtained. FINDINGS: There is no focal air space opacity, pleural effusion, or pneumothorax seen. The cardiac silhouette size is within normal limits. The osseous structures are intact. Mediport catheter stabl e. Heart size unchanged. Mild hyperinflation correlate for COPD. IMPRESSION: 1. COPD
[2020-09-22 11:40] LABS: Glucose,Whole Blood 165 mg/dL (75-99)
[2020-09-22] MEDS: ONDANSETRON 4 MG/2 ML VIAL IVP PRN (12:09)
[2020-09-22] MEDS ORDERED: LEVOTHYROXINE 112 MCG TAB PO SCH (14:15)
--- NOTE | 2020-10-01 12:51 | CDI ---
Date: 10.01.2020 CDS/Booth Supervisor Name: Arianne Mansfield Phone: If any questions, call Carey Jimenez Check Examiner at [phone] Patient Name: Francisca Khoury Admit Date 09.19.20 Discharge Date: 09.22.20 ATTENTION: The [facility] Coding Staff appreciate your assistance in clarifying documentation. Please respond to the clarification below the line at the bottom and electronically sign. The [facility] Coding staff will review the response and follow-up if needed. Please note: Queries are made part of the Legal Health Record. If you have any questions, please contact the Check Examiner. Dear Dr. Quinonez In order to code to the greatest specificity and for the greatest reimbursement I need the following information: You have documented in your PN (09.21.20) and H&P. SIRS workup in progress under the assessment and under plan - could be viral syndrome. WBC 5.7 1(09.22.20) Please clarify whether pt had SIRS, viral syndrome, or no diagnosis. Thank you for your kind consideration. SIRS MTDD
--- NOTE | 2020-10-07 22:21 | P.DS ---
Providers Date of admission: 09/19/20 19:50 Expected date of discharge: 09/22/20 Attending physician: Jorden Taylor MD Primary care physician: Julissa Mclaughlin [facility] Course: kelsie Khoury is a 40-year-old female with a past medical history of diabetes mellitus, DVT, stroke like episode, dysautonomia progressive neurological disorder, lupus anticoagulant positive, Emily's disease, lymphedema of left arm, P due to microadenoma, patent foramen ovale, narcolepsy, gastroparesis, orthostatic hypotension, migraines with hemiplegia, pernicious anemia, pCO2, multiple UTIs, neurogenic bladder, stress incontinence coming in the hospital wi th the chief complaints of nasal congestion and fever. Patient states that she has been having nasal discharge with congestion for the past 2-3 days. She denies having any sore throat. No cough or difficulty in breathing. Patient denies having any hematuria or dysuria. She mentions that her mother at home has been sick with sinusitis recently. Patient denies having any exposure to COVID . Patient denies having any chest pain, palpitations or lower extremity swelling. Patient denies having any cough or hemoptysis. No abdominal pain or vomiting. Patient states she's been slightly nauseous but did not throw up. Patient denies having any hematuria or dysuria. Patient has a Mediport in place, she denies having any pain or swelling or redness around the Mediport area. In the emergency patient had a fever of 102.7 and tachycardic at 112. Her saturation was 97% on room air. Blood pressure 1 61 x 85. She had a chest x- ray showing clear lungs and there is a right central venous catheter tip in the superior vena cava. She had labs done showing white count of 5, hemoglobin 11.5, platelets of 258, sodium 138, potassium 4.1, chloride 108, bicarb 22. BUN 11 creatinine 0.63, lactic acid of 1.3 and calcium of 9. Patient had Covid 19 PCR pending, blood cultures have been drawn. Hospital course - COVID - 19 negative and blood cultures showed no growth. She has been afebrile and her symptoms improved, so she is being discharged home in a stable condition. DISCHARGE DIAGNOSIS Viral syndrome SIRS - work up negative Insulin-dependent type 2 diabetes mellitus History of DVT Dysautonomia progressive neurological disorder Lupus anticoagulant Narcolepsy gastroparesis Left arm lymphedema Migraine with hemiplegia Pernicious anemia Polycystic ovarian disease Bilateral lower extremity neuropathy Neurogenic bladder History of ESBL and MRSA History of bipolar depression Follow up - Advised follow up with PCP in 3-4 days and Neurology in 1-2 weeks. Patient Condition at Discharge: Stable Plan - Discharge Summary Discharge Rx Participant: No New Discharge Prescriptions: Continue tiZANidine [Zanaflex] 4 mg PO BID@0900,1500 Levothyroxine Sodium [Synthroid] 100 mcg PO DAILY modafiniL [Provigil] 200 mg PO DAILY tab traMADol HCL [Ultram] 50 mg PO BID PRN PRN Reason: Mild To Moderate Pain Methenamine Hippurate 1 gm PO BID Mirabegron [Myrbetriq] 25 mg PO DAILY Insulin Aspart [NovoLOG Flexpen] See Protocol SQ ACHS Ergocalciferol [Vitamin D2 (DRISDOL)] 50,000 unit PO TAYLOR busPIRone HCL [Buspar] 30 mg PO BID 28 Days tab traZODone HCL [Desyrel] 200 mg PO HS #28 tab Fenofibrate [Lofibra] 160 mg PO HS tab Gabapentin [Neurontin] 400 mg PO TID cap Metoprolol Succinate (ER) [Toprol XL] 50 mg PO DAILY tab.er.24h Trimethoprim [Trimpex] 100 mg PO HS tab Rivaroxaban [Xarelto] 20 mg PO HS tab tiZANidine [Zanaflex] 8 mg PO HS tab Ondansetron [Zofran] 8 mg PO Q6H PRN tab PRN Reason: Nausea Acetaminophen Tab [Tylenol] 650 mg PO Q6H PRN PRN Reason: Fever And/ Or Pain Prochlorperazine Suppository [Compazine] 25 mg RECTAL Q8H PRN PRN Reason: Nausea Promethazine [Phenergan] 25 mg PO Q6H PRN PRN Reason: Nausea [place] Carbonate 900 mg PO HS Levothyroxine Sodium [Synthroid] 125 mcg PO MOTUWETHFR Albuterol Inhaler [Ventolin Hfa Inhaler] 1 puff INHALATION RT-Q4H PRN PRN Reason: Shortness Of Breath Dicyclomine [Bentyl] 20 mg PO Q8H PRN PRN Reason: Dyspepsia Clonidine Er 0.1mg 0.1 mg PO BID Butalbital/Aspirin/Caffeine [Qldhck-Hffuwlu-Wmvbdyvz 50-325-40 mg] 1 tab PO BID PRN PRN Reason: Migraine Headache Dexlansoprazole [Dexilant] 60 mg PO DAILY Ferrous Sulfate [Iron (65 MG Elemental)] 325 mg PO DAILY Galcanezumab-Gnlm [Emgality Pen] 120 mg SQ Q30D Insulin Glargine,Hum.rec.anlog [Lantus Solostar] 50 unit SQ HS Linaclotide [Linzess] 145 mcg PO DAILY PRN PRN Reason: Constipation OR IBS Meloxicam [Mobic] 15 mg PO DAILY Methylphenidate HCl [Ritalin] 5 mg PO BID Rizatriptan Benzoate [Rizatriptan] 5 mg PO BID PRN PRN Reason: Migraine Headache Rosuvastatin Calcium 5 mg PO HS Vortioxetine Hydrobromide [Trintellix] 20 mg PO DAILY Sodium Chloride 0.9% Iv 500 ml IV MOWEFR Ascorbic Acid [Vitamin C] 1,000 mg PO DAILY Discharge Medication List tiZANidine [Zanaflex] 4 mg PO BID@0900,1500 12/04/18 [History] Levothyroxine Sodium [Synthroid] 100 mcg PO DAILY 01/16/19 [History] modafiniL [Provigil] 200 mg PO DAILY tab 03/07/19 [Rx] traMADol HCL [Ultram] 50 mg PO BID PRN 06/28/19 [History] Methenamine Hippurate 1 gm PO BID 07/12/19 [History] Ergocalciferol [Vitamin D2 (DRISDOL)] 50,000 unit PO TAYLOR 10/08/19 [History] Insulin Aspart [NovoLOG Flexpen] See Protocol SQ ACHS 10/08/19 [History] Mirabegron [Myrbetriq] 25 mg PO DAILY 10/08/19 [History] Fenofibrate [Lofibra] 160 mg PO HS tab 10/17/19 [Rx] Gabapentin [Neurontin] 400 mg PO TID cap 10/17/19 [Rx] Metoprolol Succinate (ER) [Toprol XL] 50 mg PO DAILY tab.er.24h 10/17/19 [Rx] Ondansetron [Zofran] 8 mg PO Q6H PRN tab 10/17/19 [Rx] Rivaroxaban [Xarelto] 20 mg PO HS tab 10/17/19 [Rx] Trimethoprim [Trimpex] 100 mg PO HS tab 10/17/19 [Rx] busPIRone HCL [Buspar] 30 mg PO BID 28 Days tab 10/17/19 [Rx] tiZANidine [Zanaflex] 8 mg PO HS tab 10/17/19 [Rx] traZODone HCL [Desyrel] 200 mg PO HS #28 tab 10/17/19 [Rx] Acetaminophen Tab [Tylenol] 650 mg PO Q6H PRN 11/29/19 [History] [place] Carbonate 900 mg PO HS 11/29/19 [History] Prochlorperazine Suppository [Compazine] 25 mg RECTAL Q8H PRN 11/29/19 [History] Promethazine [Phenergan] 25 mg PO Q6H PRN 11/30/19 [History] Levothyroxine Sodium [Synthroid] 125 mcg PO MOTUWETHFR 12/28/19 [History] Albuterol Inhaler [Ventolin Hfa Inhaler] 1 puff INHALATION RT-Q4H PRN 09/19/20 [History] Ascorbic Acid [Vitamin C] 1,000 mg PO DAILY 09/19/20 [History] Butalbital/Aspirin/Caffeine [Ouwocc-Womgpnh-Bqssdvtw 50-325-40 mg] 1 tab PO BID PRN 09/19/20 [History] Clonidine Er 0.1mg 0.1 mg PO BID 09/19/20 [History] Dexlansoprazole [Dexilant] 60 mg PO DAILY 09/19/20 [History] Dicyclomine [Bentyl] 20 mg PO Q8H PRN 09/19/20 [History] Ferrous Sulfate [Iron (65 MG Elemental)] 325 mg PO DAILY 09/19/20 [History] Galcanezumab-Gnlm [Emgality Pen] 120 mg SQ Q30D 09/19/20 [History] Insulin Glargine,Hum.rec.anlog [Lantus Solostar] 50 unit SQ HS 09/19/20 [History] Linaclotide [Linzess] 145 mcg PO DAILY PRN 09/19/20 [History] Meloxicam [Mobic] 15 mg PO DAILY 09/19/20 [History] Methylphenidate HCl [Ritalin] 5 mg PO BID 09/19/20 [History] Rizatriptan Benzoate [Rizatriptan] 5 mg PO BID PRN 09/19/20 [History] Rosuvastatin Calcium 5 mg PO HS 09/19/20 [History] Sodium Chloride 0.9% Iv 500 ml IV MOWEFR 09/19/20 [History] Vortioxetine Hydrobromide [Trintellix] 20 mg PO DAILY 09/19/20 [History] Follow up Appointment(s)/Referral(s): Julissa Montano III, MD [Primary Care Provider] - 1-2 days Patient Instructions/Handouts: Dehydration (DC) Discharge Disposition: HOME SELF-CARE
== END 2020-09-22 13:50 | disposition home or self-care (01) ==
LOC: EC 17:25 → 1SOBS 19:50
PROVIDERS: ADMIT Internal Medicine; ATTEND Internal Medicine
DX: B34.9 Viral infection, unspecified (principal); R65.10 Systemic inflammatory response syndrome (SIRS) of non-infectious origin without acute organ dysfunction; E87.2 Acidosis; R09.81 Nasal congestion; R50.9 Fever, unspecified; J34.89 Other specified disorders of nose and nasal sinuses; R06.00 Dyspnea, unspecified; R10.9 Unspecified abdominal pain; R11.10 Vomiting, unspecified; R51.9 Headache, unspecified; R00.0 Tachycardia, unspecified; E11.43 Type 2 diabetes mellitus with diabetic autonomic (poly)neuropathy; K31.84 Gastroparesis; E11.42 Type 2 diabetes mellitus with diabetic polyneuropathy; G90.1 Familial dysautonomia [Riley-Day]; I89.0 Lymphedema, not elsewhere classified; G43.409 Hemiplegic migraine, not intractable, without status migrainosus; D51.0 Vitamin B12 deficiency anemia due to intrinsic factor deficiency; E28.2 Polycystic ovarian syndrome; N31.9 Neuromuscular dysfunction of bladder, unspecified; Z20.828 Contact with and (suspected) exposure to other viral communicable diseases; N39.3 Stress incontinence (female) (male); F31.9 Bipolar disorder, unspecified; E88.40 Mitochondrial metabolism disorder, unspecified; M32.9 Systemic lupus erythematosus, unspecified; D68.62 Lupus anticoagulant syndrome; G47.419 Narcolepsy without cataplexy; E06.3 Autoimmune thyroiditis; D35.2 Benign neoplasm of pituitary gland; Q21.1 Atrial septal defect; I95.1 Orthostatic hypotension; F41.9 Anxiety disorder, unspecified; E66.9 Obesity, unspecified; Z95.828 Presence of other vascular implants and grafts; Z79.899 Other long term (current) drug therapy; Z79.890 Hormone replacement therapy; Z79.4 Long term (current) use of insulin; Z88.8 Allergy status to other drugs, medicaments and biological substances; Z88.7 Allergy status to serum and vaccine; Z91.018 Allergy to other foods; Z88.1 Allergy status to other antibiotic agents; Z91.010 Allergy to peanuts; Z88.2 Allergy status to sulfonamides; Z86.73 Personal history of transient ischemic attack (TIA), and cerebral infarction without residual deficits; Z86.718 Personal history of other venous thrombosis and embolism; Z91.81 History of falling; Z87.440 Personal history of urinary (tract) infections; Z86.14 Personal history of Methicillin resistant Staphylococcus aureus infection; Z86.19 Personal history of other infectious and parasitic diseases; Z98.890 Other specified postprocedural states; Z91.89 Other specified personal risk factors, not elsewhere classified; Z91.5 Personal history of self-harm; Z68.41 Body mass index [BMI] 40.0-44.9, adult; Z83.3 Family history of diabetes mellitus; Z83.438 Family history of other disorder of lipoprotein metabolism and other lipidemia; Z82.49 Family history of ischemic heart disease and other diseases of the circulatory system; Z82.3 Family history of stroke; Z83.2 Family history of diseases of the blood and blood-forming organs and certain disorders involving the immune mechanism
CPT/HCPCS: 96361 ×4; 96374; 96375; 96376 ×3; 99284; 36415; 80053; 80048 ×3; 82728; 83605; 83615; 85025 ×4; 86140; 81003; 87040; 87502 ×2; 71045; 71046; G0378 ×4; U0003; J2405 ×3; J1642

== ENCOUNTER 2021-01-03 20:25 | Inpatient (IN) | payer MEDICARE, OTHER ==
[2021-01-03] MEDS ORDERED: PIPERACILLIN-TAZOBACTAM 3.375 GM in SODIUM CHLORIDE 0.9% 100 ML IVPB STA (20:46)
[2021-01-03] MEDS ORDERED: ACETAMINOPHEN TAB 325 MG TAB PO STA (21:08)
[2021-01-03] MEDS ORDERED: IBUPROFEN 600 MG TAB PO STA (21:08)
--- NOTE | 2021-01-03 21:25 | XR ---
EXAMINATION TYPE: XR chest 2V DATE OF EXAM: 01/03/2021 COMPARISON: 09/22/2020. HISTORY: Fever. TECHNIQUE: Frontal and lateral views of the chest are obtained. FINDINGS: The right IJ port catheter remains in place. There is no focal air space opacity, pleural effusion, or pneumothorax seen. The cardiac silhouette size is within normal limits. The osseous s tructures are intact. IMPRESSION: No acute cardiopulmonary process.
[2021-01-03 21:26] LABS: Appearance,Urine Clear (Clear); Bilirubin,Urine Negative (Negative); Blood,Urine Negative (Negative); Color,Urine Yellow; Glucose,Urine (UA) Negative (Negative); Ketones,Urine Negative (Negative); Leukocyte Esterase,Urine Negative (Negative); Nitrite,Urine Negative (Negative); Protein,Urine Negative (Negative); Specific Gravity,Urine 1.017 (1.001-1.035); Urobilinogen,Urine <2.0 mg/dL (<2.0)
[2021-01-03 21:34] LABS: Basophils # (A) 0.1 k/uL (0-0.2); Basophils % (A) 0 %; Eosinophils # (A) 0.4 k/uL (0-0.7); Eosinophils % (A) 3 %; HCT 37.9 % (34.0-46.0); HGB 12.6 gm/dL (11.4-16.0); Lymphocytes # (A) 0.8 k/uL (1.0-4.8); Lymphocytes % (A) 8 %; MCH 28.6 pg (25.0-35.0); MCHC 33.2 g/dL (31.0-37.0); MCV 86.3 fL (80.0-100.0); Mean Platelet Volume 7.3; Monocytes # (A) 0.6 k/uL (0-1.0); Monocytes % (A) 6 %; Neutrophils # (A) 8.9 k/uL (1.3-7.7); Neutrophils % (A) 82 %; Platelet Count 288 k/uL (150-450); RBC 4.39 m/uL (3.80-5.40); RDW 13.8 % (11.5-15.5); WBC 10.9 k/uL (3.8-10.6)
[2021-01-03 21:35] LABS: ALT 33 U/L (4-34); AST 40 U/L (14-36); African American GFR (CKD) >90 (>60 ml/min/1.73 sqM); Albumin 4.8 g/dL (3.5-5.0); Alkaline Phosphatase 68 U/L (38-126); Anion Gap 15 mmol/L; Blood Urea Nitrogen 9 mg/dL (7-17); Carbon Dioxide 19 mmol/L (22-30); Chloride 101 mmol/L (98-107); Glucose 205 mg/dL (74-99); Non-African American GFR(CKD) >90 (>60 ml/min/1.73 sqM); Potassium 4.6 mmol/L (3.5-5.1); Sodium 135 mmol/L (137-145); Total Bilirubin 0.5 mg/dL (0.2-1.3); Total Protein 7.8 g/dL (6.3-8.2)
[2021-01-03] MEDS ORDERED: SODIUM CHLORIDE 0.9% 1,000 ML IV ONE (21:49)
[2021-01-03] MEDS ORDERED: NALOXONE 0.4 MG/ML 1 ML VIAL IV PRN (22:01)
--- NOTE | 2021-01-03 22:06 | CT ---
EXAMINATION TYPE: CT abdomen pelvis w con DATE OF EXAM: 01/03/2021 COMPARISON: 09/28/2019. HISTORY: abdominal pain, nausea, fever CT DLP: 2282.1 mGycm Automated exposure control for dose reduction was used. TECHNIQUE: Helical acquisition of images was performed from the lung bases through the pelvis. CONTRAST: Performed without Oral Contrast and with IV Contrast, patient injected with 100 mL of Isovue 300. FINDINGS: LUNG BASES: No significant abnormality is appreciated. LIVER/GB: No acute abnormality is appreciated. Diffuse hepatic steatosis. PANCREAS: No significant abnormality is seen. SPLEEN: No significant abnormality is seen. A 0.7 cm low-attenuation splenic focus in the posterior s pleen without suspicious feature and consistent with benign etiology such as cyst. ADRENALS: No significant abnormality is seen. KIDNEYS: No significant abnormality is seen. A few benign-appearing left renal cysts, measuring up to 0.5 cm. FREE AIR: No free air is visualized. RETROPERITONEAL ADENOPATHY: None visualized REPRODUCTIVE ORGANS: No significant abnormality is seen URINARY BLADDER: No significant abnormality is seen. PELVIC ADENOPATHY: None visualized. OSSEOUS STRUCTURES: No significant abnormality is seen. BOWEL: No significant abnormality is seen. OTHER: None. IMPRESSION: NO ACUTE ABNORMALITY. CHRONIC AND INCIDENTAL FINDINGS ABOVE.
--- NOTE | 2021-01-03 22:19 | ED ---
Abdominal Pain HPI - General Chief Complaint: Abdominal Pain Stated Complaint: Fever, port infection Time Seen by Provider: 01/03/21 20:29 Source: patient Mode of arrival: wheelchair Limitations: no limitations - History of Present Illness Initial Comments: 40-year-old female presenting for general malaise fevers headache x 2 days. Patient states that for the past day she has had some vague headaches generally unwell feeling and recording a fever at home. Patient states that she is also had some upper abdominal tenderness and nausea as well as low back pain. Patient states that a dull pain is not severe. She denies a chest pain shortness of breath cough congestion dysuria urgency frequency, sharp stabbing flank pain, diarrhea, vomiting, rashes. Patient denies vaginal discharge. Patient has no additional complaints. Pt states she does have a port that she gets "saline infusions". patient appears well nontoxic in no distress. - Related Data Home Medications Medication Instructions Recorded Confirmed tiZANidine [Zanaflex] 4 mg PO BID@0900,1500 12/04/18 01/03/21 Levothyroxine Sodium [Synthroid] 100 mcg PO DAILY 01/16/19 01/03/21 traMADol HCL [Ultram] 50 mg PO BID PRN 06/28/19 01/03/21 Methenamine Hippurate 1 gm PO BID 07/12/19 01/03/21 Ergocalciferol [Vitamin D2 50,000 unit PO TAYLOR 10/08/19 01/03/21 (DRISDOL)] Insulin Aspart [NovoLOG Flexpen] See Protocol SQ ACHS 10/08/19 01/03/21 Mirabegron [Myrbetriq] 25 mg PO DAILY 10/08/19 01/03/21 Acetaminophen Tab [Tylenol] 650 mg PO Q6H PRN 11/29/19 01/03/21 [place] Carbonate 900 mg PO HS 11/29/19 01/03/21 Prochlorperazine Suppository 25 mg RECTAL Q8H PRN 11/29/19 01/03/21 [Compazine] Promethazine [Phenergan] 25 mg PO Q6H PRN 11/30/19 01/03/21 Levothyroxine Sodium [Synthroid] 125 mcg PO MOTUWETH 12/28/19 01/03/21 Albuterol Inhaler [Ventolin Hfa 1 puff INHALATION RT-Q4H PRN 09/19/20 01/03/21 Inhaler] Ascorbic Acid [Vitamin C] 1,000 mg PO DAILY 09/19/20 01/03/21 Butalbital/Aspirin/Caffeine 1 tab PO BID PRN 09/19/20 01/03/21 [Xrcdjt-Bmqphyq-Rqydcxvz 50-325-40 mg] Clonidine Er 0.1mg 0.1 mg PO BID 09/19/20 01/03/21 Dexlansoprazole [Dexilant] 60 mg PO DAILY 09/19/20 01/03/21 Dicyclomine [Bentyl] 20 mg PO Q8H PRN 09/19/20 01/03/21 Ferrous Sulfate [Iron (65 MG 325 mg PO DAILY 09/19/20 01/03/21 Elemental)] Galcanezumab-Gnlm [Emgality Pen] 120 mg SQ Q30D 09/19/20 01/03/21 Insulin Glargine,Hum.rec.anlog 50 unit SQ DAILY 09/19/20 01/03/21 [Lantus Solostar] Linaclotide [Linzess] 145 mcg PO DAILY PRN 09/19/20 01/03/21 Meloxicam [Mobic] 15 mg PO DAILY 09/19/20 01/03/21 Methylphenidate HCl [Ritalin] 5 mg PO BID 09/19/20 01/03/21 Rizatriptan Benzoate [Rizatriptan] 5 mg PO BID PRN 09/19/20 01/03/21 Sodium Chloride 0.9% Iv 500 ml IV SUMOWEFR 09/19/20 01/03/21 Metoclopramide HCl [Reglan] 10 mg PO ACHS 01/03/21 01/03/21 hydrOXYzine pamoate [Vistaril] 50 - 100 mg PO HS 01/03/21 01/03/21 Previous Rx's Medication Instructions Recorded modafiniL [Provigil] 200 mg PO DAILY tab 03/07/19 Fenofibrate [Lofibra] 160 mg PO HS tab 10/17/19 Gabapentin [Neurontin] 400 mg PO TID cap 10/17/19 Metoprolol Succinate (ER) [Toprol 50 mg PO DAILY tab.er.24h 10/17/19 XL] Ondansetron [Zofran] 8 mg PO Q6H PRN tab 10/17/19 Rivaroxaban [Xarelto] 20 mg PO HS tab 10/17/19 Trimethoprim [Trimpex] 100 mg PO HS tab 10/17/19 busPIRone HCL [Buspar] 30 mg PO BID 28 Days tab 10/17/19 tiZANidine [Zanaflex] 8 mg PO HS tab 10/17/19 Allergies Allergy/AdvReac Type Severity Reaction Status Date / Time barium sulfate Allergy Anaphylaxis Verified 01/03/21 22:45 doxepin [Doxepin] Allergy Anaphylaxis Verified 01/03/21 22:45 ephedrine Allergy Unknown Verified 01/03/21 22:45 ertapenem [From Invanz] Allergy Rash/Hives Verified 01/03/21 22:45 influenza virus vaccine, Allergy severe Verified 01/03/21 22:45 specific swelling [Influenza Virus and hives Vacc,Specific] peanut oil AdvReac Severe Nausea & Verified 01/03/21 22:45 Vomiting,itching doxycycline AdvReac Nausea & Verified 01/03/21 22:45 Vomiting & Diarrhea peanut AdvReac Nausea & Verified 01/03/21 22:45 Vomiting Pertussis Vaccines AdvReac fever/seizu Verified 01/03/21 22:45 re pseudoephedrine AdvReac Chest Pain Verified 01/03/21 22:45 pseudoephedrine HCl AdvReac Chest Pain Verified 01/03/21 22:45 [From Sudafed] sulfamethoxazole AdvReac Nausea & Verified 01/03/21 22:45 [From Bactrim] Vomiting trimethoprim [From Bactrim] AdvReac Nausea & Verified 01/03/21 22:45 Vomiting Review of Systems ROS Statement: Those systems with pertinent positive or pertinent negative responses have been documented in the HPI. ROS Other: All systems not noted in ROS Statement are negative. Past Medical History Past Medical History: Chest Pain / Angina, CVA/TIA, Diabetes Mellitus, Deep Vein Thrombosis (DVT), Neurologic Disorder, Syncope, Thyroid Disorder Additional Past Medical History / Comment(s): STROKE LIKE EPISODE D/T MITOCHRONDIAL DISEASE HAD WORK UP DONE AT [facility]. Dysautonomia-progressive neurological disorder, lupus/LUPUS ANTICOAGULANTS, ana maria's disease, lymphedema Lt arm d/t DVTs , v-tach, pituitary microadenoma. patent foramen ovale, narcolepsy, gastropareis, IDDM type II, falls, orthostatic hypotensio n/syncope, migraines with hemiplegia, pernicious anemia, polycystic ovarian syndrome, neuropathy bilateral legs/feet - mild, uti's. neurogenic bladder, stress incontinence History of Any Multi-Drug Resistant Organisms: ESBL, MRSA Date of last positivie culture/infection: 03/09/17 MRSA/ 05/17/18 ESBL MDRO Source:: MRSA LEFT ARM,/ESBL URINE ECOLI Past Surgical History: Uterine Ablation Additional Past Surgical History / Comment(s): colonscopy/egd, angie, PORT-A -CATH INSERTION 04-28-18, Past Anesthesia/Blood Transfusion Reactions: No Reported Reaction Additional Past Anesthesia/Blood Transfusion Reaction / Comment(s): patient states "It takes a lot of anesthesia for my body to react". Pt has received blood in past without reaction. Past Psychological History: Bipolar, Depression Smoking Status: Never smoker Past Alcohol Use History: None Reported Past Drug Use History: None Reported - Past Family History Brother(s) Family Medical History: Diabetes Mellitus, Hyperlipidemia, Hypertension Additional Family Medical History / Comment(s): Patient states she has 1 brother with no major medical problems. Father Family Medical History: Diabetes Mellitus, Hyperlipidemia, Hypertension Additional Family Medical History / Comment(s): DAD IS 70 YEARS OLD. Patient states she does not have any contact with her father and does not know his medical history. Mother Family Medical History: CVA/TIA, Deep Vein Thrombosis (DVT) Additional Family Medical History / Comment(s): antiphospholipid antibody syndrome General Exam - General Exam Comments Initial Comments: General: The patient is awake and alert, in no distress Eye: +3 mm pupils are equal, round and reactive to light, extra-ocular movements are intact. No nystagmus. There is normal conjunctiva bilaterally. No signs of icterus. Ears, nose, mouth and throat: There are moist mucous membranes and no oral lesions. Neck: The neck is supple, there is no tenderness or JVD. Cardiovascular: There is a regular rate and rhythm. No murmur, rub or gallop is appreciated. Respiratory: Lungs are clear to auscultation, respirations are non-labored, breath sounds are equal. No wheezes, stridor, rales, or rhonchi. Gastrointestinal: Soft, non-distended, mild diffuse tenderness, abdomen without masses or organomegaly noted. There is no rebound or guarding present. Musculoskeletal: Normal ROM, no tenderness. Strength 5/5. Sensation intact. Radial pulses equal bilaterally 2+. Neurological: A&O x 3. CN II-XII intact grossly, There are no obvious motor or sensory deficits. Coordination appears grossly intact. Speech is normal. Skin: Skin is warm and dry and no rashes or lesions are noted. Psychiatric: Cooperative, appropriate mood & affect, normal judgment. Limitations: no limitations Course Vital Signs 01/03/21 01/03/21 01/03/21 20:26 22:22 23:11 Temperature 100.6 F H 99.6 F 99.3 F Pulse Rate 108 H 99 93 Respiratory 18 16 16 Rate Blood Pressure 150/107 119/85 121/83 O2 Sat by Pulse 95 96 98 Oximetry Medical Decision Making - Medical Decision Making mild leukocytosis. Low-grade fever. Lactic acidosis. Patient heart rate ranging from 90-100. Patient however does not appear overtly toxic she is in no distress. No signs of EOD. Patient does have port, as there is no clear cut signs of infection, culture were taken from port and possible source of fever. pt initiated on zosyn as she has previous tolerated this abx with her extensive allergy list. patient agreeable to this care plan and admissing. pt accepted by [facility] group. Dr. Carvalho agreeable to care plan. - Lab Data Result diagrams: 01/03/21 21:10 01/03/21 21:10 Lab Results 01/03/21 01/03/21 01/03/21 Range/Units 21:10 21:10 21:10 WBC 10.9 H (3.8-10.6) k/uL RBC 4.39 (3.80-5.40) m/uL Hgb 12.6 (11.4-16.0) gm/dL Hct 37.9 (34.0-46.0) % MCV 86.3 (80.0-100.0) fL MCH 28.6 (25.0-35.0) pg MCHC 33.2 (31.0-37.0) g/dL RDW 13.8 (11.5-15.5) % Plt Count 288 (150-450) k/uL MPV 7.3 Neutrophils % 82 % Lymphocytes % 8 % Monocytes % 6 % Eosinophils % 3 % Basophils % 0 % Neutrophils # 8.9 H (1.3-7.7) k/uL Lymphocytes # 0.8 L (1.0-4.8) k/uL Monocytes # 0.6 (0-1.0) k/uL Eosinophils # 0.4 (0-0.7) k/uL Basophils # 0.1 (0-0.2) k/uL Sodium 135 L (137-145) mmol/L Potassium 4.6 (3.5-5.1) mmol/L Chloride 101 (98-107) mmol/L Carbon Dioxide 19 L (22-30) mmol/L Anion Gap 15 mmol/L BUN 9 (7-17) mg/dL Creatinine 0.67 (0.52-1.04) mg/dL Est GFR (CKD-EPI)AfAm >90 (>60 ml/min/1.73 sqM) Est GFR (CKD-EPI)NonAf >90 (>60 ml/min/1.73 sqM) Glucose 205 H (74-99) mg/dL Plasma Lactic Acid Joce (0.7-2.0) mmol/L Calcium 10.0 (8.4-10.2) mg/dL Total Bilirubin 0.5 (0.2-1.3) mg/dL AST 40 H (14-36) U/L ALT 33 (4-34) U/L Alkaline Phosphatase 68 (38-126) U/L Total Protein 7.8 (6.3-8.2) g/dL Albumin 4.8 (3.5-5.0) g/dL Urine Color Yellow Urine Appearance Clear (Clear) Urine pH 7.0 (5.0-8.0) Ur Specific [place] 1.017 (1.001-1.035) Urine Protein Negative (Negative) Urine Glucose (UA) Negative (Negative) Urine Ketones Negative (Negative) Urine Blood Negative (Negative) Urine Nitrite Negative (Negative) Urine Bilirubin Negative (Negative) Urine Urobilinogen <2.0 (<2.0) mg/dL Ur Leukocyte Esterase Negative (Negative) Coronavirus (PCR) (Not Detectd) Heterophile Antibody (Negative) 01/03/21 01/03/21 01/03/21 Range/Units 21:10 22:00 22:00 WBC (3.8-10.6) k/uL RBC (3.80-5.40) m/uL Hgb (11.4-16.0) gm/dL Hct (34.0-46.0) % MCV (80.0-100.0) fL MCH (25.0-35.0) pg MCHC (31.0-37.0) g/dL RDW (11.5-15.5) % Plt Count (150-450) k/uL MPV Neutrophils % % Lymphocytes % % Monocytes % % Eosinophils % % Basophils % % Neutrophils # (1.3-7.7) k/uL Lymphocytes # (1.0-4.8) k/uL Monocytes # (0-1.0) k/uL Eosinophils # (0-0.7) k/uL Basophils # (0-0.2) k/uL Sodium (137-145) mmol/L Potassium (3.5-5.1) mmol/L Chloride (98-107) mmol/L Carbon Dioxide (22-30) mmol/L Anion Gap mmol/L BUN (7-17) mg/dL Creatinine (0.52-1.04) mg/dL Est GFR (CKD-EPI)AfAm (>60 ml/min/1.73 sqM) Est GFR (CKD-EPI)NonAf (>60 ml/min/1.73 sqM) Glucose (74-99) mg/dL Plasma Lactic Acid Joce 3.1 H* (0.7-2.0) mmol/L Calcium (8.4-10.2) mg/dL Total Bilirubin (0.2-1.3) mg/dL AST (14-36) U/L ALT (4-34) U/L Alkaline Phosphatase (38-126) U/L Total Protein (6.3-8.2) g/dL Albumin (3.5-5.0) g/dL Urine Color Urine Appearance (Clear) Urine pH (5.0-8.0) Ur Specific [place] (1.001-1.035) Urine Protein (Negative) Urine Glucose (UA) (Negative) Urine Ketones (Negative) Urine Blood (Negative) Urine Nitrite (Negative) Urine Bilirubin (Negative) Urine Urobilinogen (<2.0) mg/dL Ur Leukocyte Esterase (Negative) Coronavirus (PCR) Not Detected (Not Detectd) Heterophile Antibody Negative (Negative) Disposition Clinical Impression: Fever, Fever, unknown origin, Nausea, Back pain, Abdominal pain Disposition: ADMITTED IP TO THIS HOSP Condition: Stable Is patient prescribed a controlled substance at d/c from ED?: No Time of Disposition: 22:19 Decision to Admit Reason: Admit from EC Decision Date: 01/03/21 Decision Time: 22:19
[2021-01-03] MEDS ORDERED: VANCOMYCIN IV PER PHARMACY 1 EACH MISC MISCELLANE PRN (22:39)
[2021-01-03] MEDS ORDERED: VANCOMYCIN 1,750 MG in SODIUM CHLORIDE 0.9% 500 ML 500 ML IVPB STA (22:42)
[2021-01-04] MEDS ORDERED: traMADol 50 MG TAB PO PRN (00:07)
[2021-01-04] MEDS: hydrOXYzine HCL 25 MG TAB PO SCH ×2 (00:26→23:25)
[2021-01-04 07:21] LABS: Glucose,Whole Blood 211 mg/dL (75-99)
[2021-01-04] MEDS: MELOXICAM 7.5 MG TAB PO SCH (09:21)
[2021-01-04] MEDS: SODIUM CHLORIDE 0.9% 1,000 ML IV SCH ×2 (09:34→20:43)
[2021-01-04] MEDS ORDERED: PROMETHAZINE 25 MG TAB PO PRN (11:54)
[2021-01-04] MEDS ORDERED: ACETAMINOPHEN TAB 325 MG TAB PO PRN (11:54)
[2021-01-04] MEDS ORDERED: PROCHLORPERAZINE SUPPOSITORY 25 MG SUPP RECTAL PRN (11:54)
[2021-01-04] MEDS ORDERED: NON FORMULARY DRUG (Butalbital/Aspirin/Caffeine [Butalb-Aspirin-Caffeine 50-325-40 Mg] 1 E PO PRN (11:54)
[2021-01-04] MEDS ORDERED: NON FORMULARY DRUG (Linaclotide [Linzess] 145 MCG Capsule) PO PRN (11:54)
[2021-01-04] MEDS ORDERED: ONDANSETRON 4 MG TAB PO PRN (11:54)
[2021-01-04] MEDS ORDERED: DICYCLOMINE 20 MG TAB PO PRN (11:54)
[2021-01-04] MEDS ORDERED: SUMAtriptan succinate 50 MG TAB PO PRN (11:54)
[2021-01-04] MEDS ORDERED: HYDROmorphone 0.5 MG/0.5 ML SYRINGE IVP PRN (11:57)
[2021-01-04] MEDS ORDERED: ALPRAZolam 0.25 MG TAB PO PRN (11:57)
[2021-01-04] MEDS ORDERED: TEMAZEPAM 15 MG CAP PO PRN (11:57)
[2021-01-04 12:28] LABS: Glucose,Whole Blood 229 mg/dL (75-99)
[2021-01-04] MEDS: INSULIN ASPART (NovoLOG) 100 UNIT/ML VIAL SQ SCH ×3 (12:29→22:47)
[2021-01-04] MEDS: VANCOMYCIN 1,750 MG in SODIUM CHLORIDE 0.9% 500 ML 500 ML IVPB SCH ×2 (12:29→23:29)
[2021-01-04] MEDS ORDERED: ONDANSETRON 4 MG/2 ML VIAL IVP PRN (12:42)
[2021-01-04 12:44] LABS: INR 0.9 (<1.2)
[2021-01-04 12:45] LABS: D-Dimer 2.08 mg/L FEU (<0.60); Prothrombin Time 10.2 sec (9.0-12.0)
[2021-01-04] MEDS ORDERED: ALBUTEROL NEBULIZED 2.5 MG/3 ML INHALATION PRN (12:45)
[2021-01-04 12:47] LABS: C Reactive Protein 71.6 mg/L (<10.0)
[2021-01-04] MEDS ORDERED: ERGOCALCIFEROL 1,250 MCG (50,000 IU) CAPSULE PO SCH (13:00)
[2021-01-04] MEDS: METOCLOPRAMIDE 10 MG TAB PO SCH ×3 (13:04→22:37)
[2021-01-04] MEDS: tiZANidine 4 MG TAB PO SCH ×2 (13:04→22:36)
--- NOTE | 2021-01-04 16:29 | HP ---
HISTORY AND PHYSICAL DATE OF SERVICE: 01/04/2021 CHIEF COMPLAINT: Fever, possible port infection, abdominal pain. HISTORY OF PRESENT ILLNESS: This is a 40-year-old woman with a past medical history of multiple medical problems including CVA, TIA, diabetes, DVT, history of neurologic disorder, history of syncope, history of stroke-like episode, history of mitochondrial disease and previously has done workup at [facility] and is being followed by Dr. Montano in the outpatient setting. The patient is living with her mother. Patient is pretty much isolated according to her. The mother goes shopping at [employer] and the patient otherwise has not been outside the house for the last 2 months. The patient is complaining of fever and headache, myalgia. Patient also had some abdominal tenderness and some back pain also. Because of multiple complex complaints, the patient came to [facility] and admitted for further evaluation and treatment. The initial lactic acid was elevated indicate some sepsis and glucose was elevated. Sodium was 135, COVID-19 was negative. Heterophile antibody was also negative. The D-dimer was 2.08. CT angio is ordered at this time. The chest x-ray which I personally reviewed showed no significant abnormality. CT scan of the abdomen and pelvis was also noted and it showed chronic incidental findings noted. No acute changes are noted. The patient also had blood cultures done and initial report shows gram-positive cocci. The patient was admitted for further workup and for further evaluation treatment. There is no history any headache, loss of consciousness, seizures at this time. PAST MEDICAL HISTORY: History of chest pain, CVA, TIA, diabetes mellitus, DVT, history of port. MEDICATIONS: Home medications are rizatriptan, Compazine, Linzess, Emgality, Drisdol, Ventolin, Ultram, Restoril, Synthroid, Lantus, Reglan, Zanaflex, Provigil, BuSpar, Xarelto, phenergan, Zofran, Myrbetriq, Toprol-XL, Ritalin, Mobic, Synthroid. NovoLog, Neurontin, iron, Lofibra, Benadryl, Dexilant, clonidine. Doses reviewed. ALLERGIES: Multiple allergies with BARIUM, SULFA, DOXEPIN, EPHEDRINE, ERTAPENEM, INFLUENZA, DOXYCYCLINE, PEANUT BUTTER, PSEUDOEPHEDRINE AND BACTRIM. FAMILY HISTORY: History of diabetes mellitus, hypertension, hyperlipidemia. SOCIAL HISTORY: No history of smoking. No history of alcohol intake. REVIEW OF SYSTEMS: ENT: No diminished hearing or diminished vision. CARDIOVASCULAR: No angina or palpitations. RESPIRATORY: No cough or hemoptysis. GI: No nausea or vomiting. : No dysuria. NERVOUS SYSTEM: As mentioned earlier. ALLERGY/IMMUNOLOGY: No asthma or hayfever. MUSCULOSKELETAL: As mentioned earlier. HEMATOLOGY: As mentioned earlier. ENDOCRINE: As mentioned earlier. CONSTITUTIONAL: As mentioned earlier. DERMATOLOGY: Negative. RHEUMATOLOGY: Negative. PSYCHIATRY: As mentioned earlier. PHYSICAL EXAMINATION: GENERAL: Patient is alert and oriented times three. VITAL SIGNS: Pulse 85, blood pressure 123/80, respirations 20, temperature 100.3, pulse ox 97% on room air. HEENT: Conjunctivae normal. Oral mucosa moist. NECK: No jugular venous distention. No carotid bruits. No lymph node enlargement. RESPIRATORY: Breath sounds diminished at the bases. No rhonchi, no crackles. HEART: S1 and S2, muffled. ABDOMEN: Soft, no tenderness. No masses palpable. EXTREMITIES: No edema, no swelling. NERVOUS: Higher functions as mentioned earlier. Moves all four limbs. No focal motor or sensory deficits. LYMPHATICS: No lymph nodes palpable in the neck or axillae. SKIN: No rashes. JOINTS: No active deforming arthropathy. LABS: At this time show WBC 10.9. D-dimer 2.6. Lactic acid 3.1. Sodium 135. Other labs are noted. ASSESSMENT: 1. Fever possible sepsis with port infection with gram-positive cocci for evaluation. 2. Rule out COVID-19. 3. Elevated lactic acid secondary to sepsis. 4. Diabetes mellitus type 2 uncontrolled with hyperglycemia. 5. Hyponatremia. 6. Elevated D-dimer. 7. Increased WBC. 8. History of chest pain, angina. 9. History of cerebrovascular accident, transient ischemic attack. 10.Diabetes mellitus type 2. 11.Deep venous thrombosis history. 12.History of syncope. 13.Hypothyroidism. 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 15.Dysautonomia and progressive neurological disorder. 16.History of lupus anticoagulant. 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 18.History of lymphedema. 19.History of ventricular tachycardia. 20.History of pituitary microadenoma. 21.History of patent foramen ovale. 22.Narcolepsy. 23.Gastroparesis. 24.History of orthostatic hypotension, syncope. 25.History of migraine. 26.History of pernicious anemia. 27.History of polycystic ovary syndrome. 28.Bilateral peripheral neuropathy and neurogenic bladder. 29.ESBL MRSA. 30.Uterine ablation. 31.History of bipolar depression. 32.Obesity with body mass index 41.6. 33.FULL CODE. RECOMMENDATION AND DISCUSSION: This is a 40-year-old woman who presented with multiple complex medical issues, we will monitor the patient closely. Continue the current management and continue symptomatic treatment. Initiate broad-spectrum IV antibiotics. Vancomycin has been initiated. We will repeat the cultures and resume the home medications. DVT prophylaxis. I would also recommend infectious disease evaluation. Prognosis guarded because of multiple complex medical issues. Further recommendations to follow. CT angio of the chest also will be reviewed. COVID-19 test will be repeated on a PCR level and overall prognosis guarded. MMODL / IJN: [id number] /
[2021-01-04 16:58] LABS: Glucose,Whole Blood 212 mg/dL (75-99)
[2021-01-04] MEDS: GABAPENTIN 400 MG CAP PO SCH ×2 (18:03→22:39)
[2021-01-04 18:54] LABS: African American GFR (CKD) >90 (>60 ml/min/1.73 sqM); Albumin 4.3 g/dL (3.5-5.0); Albumin/Globulin Ratio 1.6; Anion Gap 10 mmol/L; Blood Urea Nitrogen 7 mg/dL (7-17); Calcium 9.5 mg/dL (8.4-10.2); Carbon Dioxide 22 mmol/L (22-30); Chloride 103 mmol/L (98-107); Globulin 2.7 g/dL; Glucose 233 mg/dL (74-99); Non-African American GFR(CKD) >90 (>60 ml/min/1.73 sqM); Potassium 4.3 mmol/L (3.5-5.1); Sodium 135 mmol/L (137-145)
[2021-01-04 18:55] LABS: ALT 32 U/L (4-34); AST 39 U/L (14-36); Alkaline Phosphatase 72 U/L (38-126); Total Bilirubin 0.4 mg/dL (0.2-1.3)
[2021-01-04 20:08] LABS: Glucose,Whole Blood 178 mg/dL (75-99)
[2021-01-04 20:21] LABS: Hemoglobin A1C 8.7 % (4.0-6.0)
[2021-01-04] MEDS ORDERED: METHYLPHENIDATE HCL 5 MG TAB PO SCH (21:00)
[2021-01-04] MEDS: CLONIDINE 0.1 MG PO SCH (22:32)
[2021-01-04] MEDS: TRIMETHOPRIM 100 MG TAB PO SCH (22:34)
[2021-01-04] MEDS: busPIRone HCl 10 MG TAB PO SCH (22:34)
[2021-01-04] MEDS: LITHIUM CARBONATE 300 MG CAP PO SCH (22:35)
[2021-01-04] MEDS: FENOFIBRATE 160 MG TAB PO SCH (22:36)
[2021-01-04] MEDS: RIVAROXABAN 20 MG TAB PO SCH (22:36)
[2021-01-04] MEDS: NON FORMULARY DRUG (Methenamine Hippurate [Methenamine Hippurate] 1 GM Tablet) PO SCH (22:38)
--- NOTE | 2021-01-04 22:38 | CT ---
EXAMINATION TYPE: CT angio chest DATE OF EXAM: 01/04/2021 COMPARISON: 08/16/2015 HISTORY: Elevated d-dimer. CT DLP: 380.3 mGycm Automated exposure control for dose reduction was used. CONTRAST: Performed with IV Contrast, patient injected with 39ml mL of Isovue 370. Images obtained from the thoracic inlet to the diaphragm with IV contrast and 3-D post processed imag es. The lungs are clear of consolidation. There is no evidence of a pulmonary mass. There is no pleural e ffusion. There is some fatty infiltration of the liver. Heart size is normal. There is no pericardial effusion. There is normal contrast opacification of the pulmonary arteries. There are no filling defects. Thora cic aorta is intact. There is no aneurysm or dissection. The thoracic spine is intact. Sternum is intact. I see no bony destructive process. IMPRESSION: No evidence of pulmonary embolism. No adverse change compared to old exam. Fatty infiltration of the liver. This appears increased compared to old exam.
[2021-01-04] MEDS: HYDROcodone/APAP 5-325MG 1 EACH TAB PO PRN (22:47)
--- NOTE | 2021-01-04 23:42 | CONS ---
CONSULTATION DATE OF SERVICE: 01/04/2021 REASON FOR CONSULTATION: Fever and bacteremia. HISTORY OF PRESENT ILLNESS: The patient is a 40-year-old female presenting to the ER last night for evaluation of fever, malaise and headache. The patient symptoms has been going on for 2 days before presentation to the hospital. The patient did have a right chest wall MediPort the patient uses for giving herself infusion of saline. The patient did complain of some headache, more of a dull aching 3-4 out of 10. No radiation. Denies any photophobia. Did have nausea and some right upper quadrant abdominal pain, more of a dull aching, 3-4 out of 10, no radiation. Denies having any diarrhea. Denies having any chest pain, shortness of breath or cough. No urinary symptoms or any burning or frequency. With these symptoms, the patient was evaluated by the ER physician. On arrival to the ER, the patient did have a low grade fever of 100.6 to 100.3 degrees Fahrenheit. The patient was tachycardic. She did have a white count of 10.9 with a left shift . D. dimer was mildly elevated. Kidney function was normal. AST 39, CRP 71.6, LDH was normal. Procalcitonin elevated. She did have blood cultures showing gram-positive cocci. The patient did have a CT of abdomen and pelvis negative for any acute abnormality. Chest x-ray was negative for any acute cardiopulmonary process. The patient was started on vancomycin. Infectious Disease was consulted for further management of antibiotic therapy. REVIEW OF SYSTEMS: Positive points have been mentioned in HPI. Rest of the systems are negative. PAST MEDICAL HISTORY: DVT, diabetes mellitus, CVA/TIA, angina, hypothyroidism. PAST SURGICAL HISTORY: Colonoscopy and EGD, GERSON, Port-A-Cath insertion. SOCIAL HISTORY: Denies smoking, drinking or drug use. FAMILY HISTORY: Father history of diabetes, hypertension, hyperlipidemia. Mother history of CVA and TIA. ALLERGIES: ERTAPENEM. DOXYCYCLINE AND ANOTHER MEDICATION NOT LISTED. MEDICATION: Medications currently the patient is on: Tylenol, [place], Ventolin, Xanax, vitamin C and Buspar, Bentyl, vitamin D2, iron sulfate, Neurontin, Dilaudid, Atarax, Levemir, Synthroid, Ritalin, Toprol-XL, Narcan, Zofran, Protonix, Compazine. PHYSICAL EXAMINATION: On examination blood pressure 153/81 with pulse of 120, temperature 99.2, T-max 100.6, she is 98% on room air. General description is a middle-aged female lying in bed in no distress. No tachypnea or accessory muscles of respiration use. HEENT: Examination shows slight pallor. No scleral icterus. Oral mucous membranes dry. NECK: Trachea is central. No thyromegaly. LUNGS unlabored breathing. Clear to auscultation anteriorly. No wheeze or crackles. Heart S1, S2. Regular rate and rhythm. ABDOMEN: Soft, no tenderness. No guarding. No rigidity. EXTREMITIES: No edema of the feet. SKIN: No rash, no mass palpable. NEUROLOGICAL: The patient is awake, alert, oriented times three. Mood and affect normal. LABS: BUN of 7, creatinine 0.55. CRP 71.6. Procalcitonin 0.34. Hemoglobin is 12.4, white count 10.9. Blood culture with gram-positive cocci. DIAGNOSTIC IMPRESSION AND PLAN: Patient admitted to the hospital with headache, fever and chills. This patient did have evidence of positive blood cultures could be more likely due to her port infection as the patient currently no other obvious focus of infection. Chest x-ray reported negative. CT of abdomen and pelvis was negative and did have a negative UA as no other obvious focus of infection. PLAN: 1. Blood culture will be repeated from the port and peripherally. 2. Vancomycin, pharmacy to dose, target of 15. 3. We will follow on clinical condition and culture to further adjust medication if needed. Thank you for this consultation. We will follow this patient along with you. MMODL / IJN: [id number] /
[2021-01-05] MEDS: LEVOTHYROXINE 100 MCG TAB PO SCH (05:59)
[2021-01-05] MEDS: LEVOTHYROXINE 125 MCG TAB PO SCH (05:59)
[2021-01-05 07:17] LABS: Glucose,Whole Blood 172 mg/dL (75-99)
[2021-01-05] MEDS ORDERED: PANTOPRAZOLE 40 MG TABLET PO SCH (07:30)
[2021-01-05] MEDS: INSULIN DETEMIR (LEVEMIR) 100 UNIT/ML SYR SQ SCH (08:45)
[2021-01-05] MEDS: INSULIN ASPART (NovoLOG) 100 UNIT/ML VIAL SQ SCH ×4 (08:45→20:59)
[2021-01-05] MEDS: PANTOPRAZOLE 40 MG TABLET PO SCH (08:46)
[2021-01-05] MEDS: METOCLOPRAMIDE 10 MG TAB PO SCH ×4 (08:46→20:56)
[2021-01-05] MEDS: FERROUS SULFATE 325 MG TAB PO SCH (08:47)
[2021-01-05] MEDS: GABAPENTIN 400 MG CAP PO SCH ×3 (08:47→22:07)
[2021-01-05] MEDS: MELOXICAM 7.5 MG TAB PO SCH (08:47)
[2021-01-05] MEDS: busPIRone HCl 10 MG TAB PO SCH ×2 (08:47→20:55)
[2021-01-05] MEDS: ASCORBIC ACID 500 MG TAB PO SCH (08:47)
[2021-01-05] MEDS: METOPROLOL SUCCINATE (ER) 50 MG TAB.ER.24H PO SCH (08:48)
[2021-01-05] MEDS: tiZANidine 4 MG TAB PO SCH ×3 (08:49→20:55)
[2021-01-05] MEDS: CLONIDINE 0.1 MG PO SCH ×2 (08:58→20:42)
[2021-01-05] MEDS: NON FORMULARY DRUG (Methenamine Hippurate [Methenamine Hippurate] 1 GM Tablet) PO SCH ×2 (08:58→20:42)
[2021-01-05] MEDS: PATIENTS OWN MED PO SCH (08:59)
[2021-01-05 09:25] LABS: Basophils # (A) 0.04 X 10*3/uL (0.00-0.10); Basophils % (A) 0.6 %; Eosinophils # (A) 0.25 X 10*3/uL (0.04-0.35); Eosinophils % (A) 3.7 %; HCT 37.8 % (37.2-46.3); Lymphocytes # (A) 1.72 X 10*3/uL (0.90-5.00); Lymphocytes % (A) 25.4 %; MCH 28.9 pg (27.0-32.0); MCHC 31.7 g/dL (32.0-37.0); MCV 91.1 fL (80.0-97.0); Mean Platelet Volume 9.4 fL (9.5-12.2); Monocytes # (A) 0.74 X 10*3/uL (0.20-1.00); Monocytes % (A) 10.9 %; Neutrophils # (A) 3.98 X 10*3/uL (1.80-7.70); Platelet Count 289 X 10*3/uL (140-440); RBC 4.15 X 10*6/uL (4.10-5.20); RDW 13.4 % (11.5-14.5); WBC 6.76 X 10*3/uL (4.50-10.00)
[2021-01-05 09:29] LABS: African American GFR (CKD) 126.5 (60.0-200.0); Anion Gap 10.1 mmol/L (4.00-12.00); BUN/Creat Ratio 11.43 Ratio (12.00-20.00); Calcium 9.3 mg/dL (8.7-10.3); Carbon Dioxide 22.9 mmol/L (21.6-31.8); Non-African American GFR(CKD) 109.1 (60.0-200.0); Potassium 3.8 mmol/L (3.5-5.5)
[2021-01-05] MEDS: VANCOMYCIN 1,750 MG in SODIUM CHLORIDE 0.9% 500 ML 500 ML IVPB SCH ×2 (10:03→17:01)
[2021-01-05] MEDS: METHYLPHENIDATE HCL 5 MG TAB PO SCH ×2 (10:04→16:57)
[2021-01-05 12:11] LABS: Glucose,Whole Blood 237 mg/dL (75-99)
--- NOTE | 2021-01-05 16:58 | PN ---
PROGRESS NOTE DATE OF SERVICE: 01/05/2021 This 40-year-old woman who was admitted with fever and possible sepsis and infection with Gram-positive cocci is being closely monitored at this time. COVID-19 has been ruled out. Chest CTA showed no evidence of any pneumonia. The initial blood culture showed coagulase-negative Staph and repeat cultures are negative so far. No chest pain. No palpitations. No fever. PHYSICAL EXAMINATION: Patient is alert and oriented x3. Pulse 85, blood pressure 128/85, respirations 16, temperature 98.6, pulse ox 98% on room air. HEENT: Conjunctivae normal. NECK: No jugular venous distention. CARDIOVASCULAR SYSTEM: S1, S2 muffled. RESPIRATORY SYSTEM: Breath sounds diminished at the bases. No rhonchi. No crackles. ABDOMEN: Soft. NERVOUS SYSTEM: No focal deficit. LABS: CBC within normal limits and glucose 180. ASSESSMENT: 1. Fever, possible sepsis, with coagulase-negative Staphylococcus. 2. Rule out port infection. 3. COVID-19 ruled out. 4. Elevated lactic acid secondary to sepsis, present on admission. 5. Diabetes mellitus, type 2, uncontrolled with hyperglycemia. 6. Hyponatremia. 7. Elevated D-dimer. 8. Increased white count. 9. History of chest pain, angina. 10.History of cerebrovascular accident, transient ischemic attack. 11.Diabetes mellitus, type 2. 12.History of deep vein thrombosis. 13.History of syncope. 14.Hypothyroidism. 15.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 [facility]. 16.Dysautonomia and progressive neurology disorder. 17.History of lupus anticoagulant. 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 19.History of lymphedema. 20.History of ventricular tachycardia. 21.History of pituitary microadenoma. 22.History of patent foramen ovale. 23.Narcolepsy. 24.Gastroparesis. 25.History of orthostatic hypotension and syncope. 26.History of migraine. 27.History of pernicious anemia. 28.History of polycystic ovarian syndrome. 29.History of peripheral neuropathy, neurogenic bladder. 30.Extended-spectrum beta-lactamase and methicillin-resistant Staphylococcus aeruginosa. 31.Uterine ablation. 32.History of bipolar, depression. 33.Obesity with body mass index of 41.6. 34.FULL CODE. RECOMMENDATIONS AND DISCUSSION: I recommend to continue current medications, continue with the monitoring, symptomatic treatment. Await further cultures. Monitor blood sugars closely. Continue empiric antibiotics. Closely follow with Dr. Llanes. Guarded prognosis. Further recommendations to follow. MMODL / IJN: [id number] /
[2021-01-05 17:36] LABS: Glucose,Whole Blood 236 mg/dL (75-99)
[2021-01-05 20:28] LABS: Glucose,Whole Blood 228 mg/dL (75-99)
[2021-01-05] MEDS: TRIMETHOPRIM 100 MG TAB PO SCH (20:55)
[2021-01-05] MEDS: FENOFIBRATE 160 MG TAB PO SCH (20:56)
[2021-01-05] MEDS: RIVAROXABAN 20 MG TAB PO SCH (20:56)
[2021-01-05] MEDS: LITHIUM CARBONATE 300 MG CAP PO SCH (20:56)
--- NOTE | 2021-01-05 23:29 | PN ---
PROGRESS NOTE DATE OF SERVICE: 01/05/2021 REASON FOR FOLLOWUP: Fever and bacteremia with a question of port infection. INTERVAL HISTORY: The patient is currently afebrile. The patient is breathing comfortably. The patient denies having any chest pain or shortness of breath or cough. No nausea, no vomiting, no abdominal pain or diarrhea. PHYSICAL EXAMINATION: Blood pressure 142/87 with a pulse of 57, temperature 98.1. She is 96% on room air. General description is a middle-aged female lying in bed in no distress. RESPIRATORY SYSTEM: Unlabored breathing. Clear to auscultation anteriorly. HEART: S1, S2. Regular rate and rhythm. ABDOMEN: Soft. No tenderness. LABS: Hemoglobin is 12, white count 6.76. BUN of 8, creatinine 0.7. Blood culture is currently positive for coagulase-negative Staph. DIAGNOSTIC IMPRESSION AND PLAN: Patient admitted to hospital with a fever, nausea and vomiting. Symptoms started out of the MediPort, question of port infection. Peripheral cultures so far negative. She is currently covered with vancomycin in view of underlying recommending at least 7-10 days of IV vancomycin through the port to prevent infection and need for removal of the port. Continue with supportive care. MMODL / IJN: [id number] /
[2021-01-05] MEDS: hydrOXYzine HCL 25 MG TAB PO SCH (23:57)
[2021-01-06] MEDS: VANCOMYCIN 1,750 MG in SODIUM CHLORIDE 0.9% 500 ML 500 ML IVPB SCH ×3 (02:20→18:00)
[2021-01-06] MEDS: SODIUM CHLORIDE 0.9% 1,000 ML IV SCH ×2 (02:20→10:23)
[2021-01-06] MEDS: LEVOTHYROXINE 100 MCG TAB PO SCH (06:07)
[2021-01-06] MEDS: LEVOTHYROXINE 125 MCG TAB PO SCH (06:07)
[2021-01-06 07:19] LABS: Glucose,Whole Blood 159 mg/dL (75-99)
[2021-01-06] MEDS: busPIRone HCl 10 MG TAB PO SCH ×2 (07:57→22:25)
[2021-01-06] MEDS: MELOXICAM 7.5 MG TAB PO SCH (07:57)
[2021-01-06] MEDS: ASCORBIC ACID 500 MG TAB PO SCH (07:57)
[2021-01-06] MEDS: tiZANidine 4 MG TAB PO SCH ×3 (07:58→22:27)
[2021-01-06] MEDS: METHYLPHENIDATE HCL 5 MG TAB PO SCH ×2 (07:58→18:00)
[2021-01-06] MEDS: FERROUS SULFATE 325 MG TAB PO SCH (07:58)
[2021-01-06] MEDS: INSULIN ASPART (NovoLOG) 100 UNIT/ML VIAL SQ SCH ×4 (07:58→22:45)
[2021-01-06] MEDS: METOCLOPRAMIDE 10 MG TAB PO SCH ×4 (07:58→22:27)
[2021-01-06] MEDS: METOPROLOL SUCCINATE (ER) 50 MG TAB.ER.24H PO SCH (07:58)
[2021-01-06] MEDS: GABAPENTIN 400 MG CAP PO SCH ×3 (07:58→22:28)
[2021-01-06] MEDS: PATIENTS OWN MED PO SCH (07:59)
[2021-01-06] MEDS: CLONIDINE 0.1 MG PO SCH ×2 (07:59→22:18)
[2021-01-06] MEDS: INSULIN DETEMIR (LEVEMIR) 100 UNIT/ML SYR SQ SCH (07:59)
[2021-01-06] MEDS: PANTOPRAZOLE 40 MG TABLET PO SCH (08:00)
[2021-01-06] MEDS: NON FORMULARY DRUG (Methenamine Hippurate [Methenamine Hippurate] 1 GM Tablet) PO SCH ×2 (08:00→22:19)
[2021-01-06] MEDS ORDERED: BUTALB/APAP/CAFF 50-325-40MG TAB PO PRN (08:17)
[2021-01-06] MEDS ORDERED: VANCOMYCIN TROUGH DUE 1 EACH MISC MISCELLANE ONE (09:00)
[2021-01-06 11:54] LABS: Basophils # (A) 0.05 X 10*3/uL (0.00-0.10); Basophils % (A) 0.6 %; Eosinophils # (A) 0.37 X 10*3/uL (0.04-0.35); Eosinophils % (A) 4.7 %; HCT 36.4 % (37.2-46.3); HGB 11.4 g/dL (12.0-15.0); Lymphocytes # (A) 1.98 X 10*3/uL (0.90-5.00); Lymphocytes % (A) 25.2 %; MCH 28.9 pg (27.0-32.0); MCHC 31.3 g/dL (32.0-37.0); MCV 92.2 fL (80.0-97.0); Mean Platelet Volume 9.6 fL (9.5-12.2); Monocytes # (A) 0.73 X 10*3/uL (0.20-1.00); Monocytes % (A) 9.3 %; Neutrophils # (A) 4.66 X 10*3/uL (1.80-7.70); Neutrophils % (A) 59.2 %; Platelet Count 277 X 10*3/uL (140-440); RBC 3.95 X 10*6/uL (4.10-5.20); RDW 13.6 % (11.5-14.5); WBC 7.87 X 10*3/uL (4.50-10.00)
[2021-01-06 12:39] LABS: African American GFR (CKD) 126.5 (60.0-200.0); Anion Gap 9.5 mmol/L (4.00-12.00); BUN/Creat Ratio 15.71 Ratio (12.00-20.00); Calcium 9.1 mg/dL (8.7-10.3); Carbon Dioxide 21.5 mmol/L (21.6-31.8); Non-African American GFR(CKD) 109.1 (60.0-200.0); Potassium 3.9 mmol/L (3.5-5.5)
[2021-01-06 12:51] LABS: Glucose,Whole Blood 207 mg/dL (75-99)
--- NOTE | 2021-01-06 15:21 | PN ---
PROGRESS NOTE DATE OF SERVICE: 01/06/2021 This 40-year-old woman who was admitted with fever and possible sepsis had coagulase- negative Staph, blood culture one out of several. The patient was empirically treated with vancomycin. The patient is afebrile at this time. Dr. Llanes is following the patient closely. No chest pain. No palpitation. PHYSICAL EXAMINATION: Alert and oriented x3. Pulse 78, blood pressure 120/80, respirations 16, temperature 98.9, pulse ox 94% on room air. HEENT: Conjunctivae normal. NECK: No jugular venous distention. CARDIOVASCULAR SYSTEM: S1, S2 muffled. RESPIRATORY SYSTEM: Breath sounds diminished at the bases. No rhonchi. No crackles. ABDOMEN: Soft, non-tender. LEGS: No edema. No swelling. NERVOUS SYSTEM: No focal deficit. LABS: WBC 7.8, hemoglobin 11.4. Accu-Cheks noted. ASSESSMENT: 1. Fever, possible sepsis, with coagulase-negative Staphylococcus. 2. Rule out port infection. 3. COVID-19 ruled out. 4. Elevated lactic acid secondary to sepsis, present on admission. 5. Diabetes mellitus, type 2, uncontrolled with hyperglycemia. 6. Hyponatremia. 7. Elevated D-dimer. 8. Increased white count. 9. History of chest pain, angina. 10.History of cerebrovascular accident, transient ischemic attack. 11.Diabetes mellitus, type 2. 12.History of deep venous thrombosis. 13.History of syncope. 14.Hypothyroidism. 15.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 [facility]. 16.Dysautonomia and progressive neurological disorder. 17.History of lupus anticoagulant. 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 19.History of lymphedema. 20.History of ventricular tachycardia. 21.History of pituitary microadenoma. 22.History of patent foramen ovale. 23.Narcolepsy. 24.Gastroparesis. 25.History of orthostatic hypotension and syncope. 26.History of migraine. 27.History of pernicious anemia. 28.History of polycystic ovarian syndrome. 29.History of peripheral neuropathy, neurogenic bladder. 30.Extended-spectrum beta lactamase and methicillin-resistant Staphylococcus aeruginosa. 31.Uterine ablation history. 32.History of bipolar, depression. 33.Obesity with body mass index of 41.6. 34.FULL CODE. RECOMMENDATIONS AND DISCUSSION: I recommend to continue current medications, continue with the monitoring, symptomatic treatment. The repeated cultures are negative so far. We will continue to monitor. The patient is on IV vancomycin. Dr. Llanes is recommending at least 7 to 10 days of presumptive IV antibiotic treatment because of sepsis and clinical presentation of the patient. Will continue to monitor. Discussed with the patient, who understands and agrees. CARLIN / MARLONN: [id number] /
[2021-01-06 17:35] LABS: Glucose,Whole Blood 171 mg/dL (75-99)
[2021-01-06 22:24] LABS: Glucose,Whole Blood 204 mg/dL (75-99)
[2021-01-06] MEDS: TRIMETHOPRIM 100 MG TAB PO SCH (22:26)
[2021-01-06] MEDS: LITHIUM CARBONATE 300 MG CAP PO SCH (22:26)
[2021-01-06] MEDS: FENOFIBRATE 160 MG TAB PO SCH (22:27)
[2021-01-06] MEDS: RIVAROXABAN 20 MG TAB PO SCH (22:28)
[2021-01-06] MEDS: hydrOXYzine HCL 25 MG TAB PO SCH (22:56)
--- NOTE | 2021-01-06 23:02 | PN ---
PROGRESS NOTE DATE OF SERVICE: 01/06/2021 REASON FOR FOLLOWUP: Fever with positive blood cultures with coagulase-negative Staph. INTERVAL HISTORY: The patient is currently afebrile. The patient is breathing comfortably. The patient denies having any chest pain or shortness of breath or cough. No abdominal pain and no diarrhea. PHYSICAL EXAMINATION: Blood pressure 151/95 with a pulse of 80, temperature 98.6. She is 96% on room air. General description is a middle-aged female lying in bed in no distress. RESPIRATORY SYSTEM: Unlabored breathing. Clear to auscultation anteriorly. HEART: S1, S2. Regular rate and rhythm. ABDOMEN: Soft. No tenderness. LABS: Hemoglobin is 11.4, white count 7.87, BUN of 11, creatinine 0.7. Blood culture repeat has been negative. DIAGNOSTIC IMPRESSION AND PLAN: Patient with a fever and positive blood culture with coagulase-negative Staphylococcus in this patient whose fever responded to the vancomycin. In view of the patient having a port, recommending another week of IV vancomycin through the port and close outpatient followup. Prescription was provided to the shoe parts caser. MMODL / IJN: [id number] /
[2021-01-07] MEDS: VANCOMYCIN 1,750 MG in SODIUM CHLORIDE 0.9% 500 ML 500 ML IVPB SCH ×3 (03:17→17:38)
[2021-01-07] MEDS: LEVOTHYROXINE 100 MCG TAB PO SCH (05:57)
[2021-01-07] MEDS: LEVOTHYROXINE 125 MCG TAB PO SCH (05:57)
[2021-01-07 07:16] LABS: Glucose,Whole Blood 158 mg/dL (75-99)
[2021-01-07] MEDS: PANTOPRAZOLE 40 MG TABLET PO SCH (08:59)
[2021-01-07] MEDS: METOCLOPRAMIDE 10 MG TAB PO SCH ×4 (08:59→21:06)
[2021-01-07] MEDS: ASCORBIC ACID 500 MG TAB PO SCH (08:59)
[2021-01-07] MEDS: busPIRone HCl 10 MG TAB PO SCH ×2 (09:00→21:06)
[2021-01-07] MEDS: GABAPENTIN 400 MG CAP PO SCH ×3 (09:01→21:05)
[2021-01-07] MEDS: MELOXICAM 7.5 MG TAB PO SCH (09:02)
[2021-01-07] MEDS: METOPROLOL SUCCINATE (ER) 50 MG TAB.ER.24H PO SCH (09:03)
[2021-01-07] MEDS: tiZANidine 4 MG TAB PO SCH ×3 (09:04→21:05)
[2021-01-07] MEDS: INSULIN DETEMIR (LEVEMIR) 100 UNIT/ML SYR SQ SCH (09:12)
[2021-01-07] MEDS: INSULIN ASPART (NovoLOG) 100 UNIT/ML VIAL SQ SCH ×4 (09:14→21:06)
[2021-01-07 09:20] LABS: Basophils # (A) 0.04 X 10*3/uL (0.00-0.10); Basophils % (A) 0.6 %; Eosinophils # (A) 0.32 X 10*3/uL (0.04-0.35); Eosinophils % (A) 4.8 %; HCT 36.7 % (37.2-46.3); HGB 11.3 g/dL (12.0-15.0); Lymphocytes # (A) 1.65 X 10*3/uL (0.90-5.00); Lymphocytes % (A) 24.8 %; MCH 28.5 pg (27.0-32.0); MCHC 30.8 g/dL (32.0-37.0); MCV 92.7 fL (80.0-97.0); Mean Platelet Volume 8.9 fL (9.5-12.2); Monocytes # (A) 0.59 X 10*3/uL (0.20-1.00); Monocytes % (A) 8.9 %; Neutrophils # (A) 3.99 X 10*3/uL (1.80-7.70); Neutrophils % (A) 59.8 %; Platelet Count 280 X 10*3/uL (140-440); RBC 3.96 X 10*6/uL (4.10-5.20); RDW 13.5 % (11.5-14.5); WBC 6.66 X 10*3/uL (4.50-10.00)
[2021-01-07 09:48] LABS: African American GFR (CKD) 126.5 (60.0-200.0); Anion Gap 10.5 mmol/L (4.00-12.00); BUN/Creat Ratio 14.29 Ratio (12.00-20.00); Carbon Dioxide 19.5 mmol/L (21.6-31.8); Non-African American GFR(CKD) 109.1 (60.0-200.0); Potassium 3.8 mmol/L (3.5-5.5)
[2021-01-07] MEDS: METHYLPHENIDATE HCL 5 MG TAB PO SCH ×2 (10:36→17:37)
[2021-01-07] MEDS: NON FORMULARY DRUG (Methenamine Hippurate [Methenamine Hippurate] 1 GM Tablet) PO SCH (10:46)
[2021-01-07] MEDS: CLONIDINE 0.1 MG PO SCH (10:46)
[2021-01-07] MEDS: PATIENTS OWN MED PO SCH (10:47)
[2021-01-07 11:32] LABS: Glucose,Whole Blood 228 mg/dL (75-99)
--- NOTE | 2021-01-07 15:18 | PN ---
PROGRESS NOTE DATE OF SERVICE: 01/07/2021 REASON FOR FOLLOWUP: Fever with positive blood culture with staph. INTERVAL HISTORY: The patient is currently afebrile. The patient is breathing comfortably. The patient denies having any chest pain or shortness of breath or cough. No nausea, no vomiting. No abdominal pain. No diarrhea. PHYSICAL EXAMINATION: Blood pressure is 112/77 with a pulse of 79, temperature 98.8. She is 98% on room air. General description is a middle-aged female up in the room in no distress. RESPIRATORY SYSTEM: Unlabored breathing, clear to auscultation anteriorly. HEART: S1, S2. Regular rate and rhythm. ABDOMEN: Soft, no tenderness. LABS: Hemoglobin is 11.3, white count 6.66, BUN of 10, creatinine 0.7. DIAGNOSTIC IMPRESSION AND PLAN: Patient admitted to the hospital with fever and concern for possible Mediport related with blood culture positive for Staph epi. Repeat blood culture negative. One week of IV vancomycin. Prescription provided to the hospice case manager. Continue with supportive care. MMODL / MARLONN: [id number] /
--- NOTE | 2021-01-07 16:54 | PN ---
PROGRESS NOTE DATE OF SERVICE: 01/07/2021 This 40-year-old woman who was admitted with fever and possible sepsis with coagulase- negative Staph has got still cultures pending at this time. No chest pain. No palpitations. No fever. PHYSICAL EXAMINATION: On exam, alert and oriented x3. Pulse 79, blood pressure 112/77, respiration 18, temperature 98.8, pulse ox 98% on room air. HEENT: Conjunctivae normal. NECK: No jugular venous distention. CARDIOVASCULAR SYSTEM: S1, S2 muffled. RESPIRATORY SYSTEM: Breath sounds diminished at the bases. A few scattered rhonchi and crackles. ABDOMEN: Soft, non-tender. NERVOUS SYSTEM: No focal deficit. LABS: WBC 6.6, hemoglobin 11.3. Other labs are noted. ASSESSMENT: 1. Fever, possibly sepsis with coagulase-negative Staphylococcus. 2. Rule out Port-A-Cath infection. 3. COVID-19 ruled out. 4. Elevated lactic acid secondary to sepsis, present on admission. 5. Diabetes mellitus, type 2, uncontrolled with hyperglycemia. 6. Hyponatremia. 7. Elevated D-dimer. 8. Increased white count. 9. History of chest pain, angina. 10.History of cerebrovascular accident, transient ischemic attack. 11.Diabetes mellitus, type 2. 12.History of deep venous thrombosis. 13.History of syncope. 14.Hypothyroidism. 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 16.Dysautonomia and progressive neurological disorder. 17.History of lupus anticoagulant. 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 19.History of lymphedema. 20.History of ventricular tachycardia. 21.History of pituitary microadenoma. 22.History of patent foramen ovale. 23.Narcolepsy. 24.Gastroparesis. 25.History of orthostatic hypotension and syncope. 26.History of migraine. 27.History of pernicious anemia. 28.History of polycystic ovarian syndrome. 29.History of peripheral neuropathy, neurogenic bladder. 30.Extended-spectrum beta lactamase with MRSA. 31.Uterine ablation history. 32.History of bipolar, depression. 33.Obesity with body mass index of 41.6. 34.FULL CODE. RECOMMENDATIONS AND DISCUSSION: I recommend to continue current medications, continue with the monitoring, symptomatic treatment. Continue with the antibiotics. Closely follow. Follow the cultures. Guarded prognosis. I recommend outpatient antibiotics per Dr. Llanes. Further recommendations to follow. MMODL / IJN: [id number] /
[2021-01-07 16:58] LABS: Glucose,Whole Blood 165 mg/dL (75-99)
[2021-01-07 20:14] LABS: Glucose,Whole Blood 193 mg/dL (75-99)
[2021-01-07] MEDS: SODIUM CHLORIDE 0.9% 1,000 ML IV SCH (21:04)
[2021-01-07] MEDS: LITHIUM CARBONATE 300 MG CAP PO SCH (21:05)
[2021-01-07] MEDS: TRIMETHOPRIM 100 MG TAB PO SCH (21:05)
[2021-01-07] MEDS: RIVAROXABAN 20 MG TAB PO SCH (21:06)
[2021-01-07] MEDS: FENOFIBRATE 160 MG TAB PO SCH (21:07)
[2021-01-07] MEDS: HYDROcodone/APAP 5-325MG 1 EACH TAB PO PRN (21:16)
[2021-01-07] MEDS ORDERED: hydrOXYzine HCL 25 MG TAB PO SCH (21:25)
[2021-01-08] MEDS: CLONIDINE 0.1 MG PO SCH ×2 (01:58→09:14)
[2021-01-08] MEDS: NON FORMULARY DRUG (Methenamine Hippurate [Methenamine Hippurate] 1 GM Tablet) PO SCH ×2 (01:58→09:14)
[2021-01-08] MEDS: VANCOMYCIN 1,750 MG in SODIUM CHLORIDE 0.9% 500 ML 500 ML IVPB SCH ×2 (02:15→10:37)
[2021-01-08 05:04] VITALS: TEMP 98.2
[2021-01-08] MEDS: LEVOTHYROXINE 100 MCG TAB PO SCH (05:42)
[2021-01-08 07:19] LABS: Glucose,Whole Blood 137 mg/dL (75-99)
[2021-01-08] MEDS: hydrOXYzine HCL 25 MG TAB PO SCH (07:32)
[2021-01-08] MEDS: GABAPENTIN 400 MG CAP PO SCH (08:11)
[2021-01-08] MEDS: FERROUS SULFATE 325 MG TAB PO SCH (08:11)
[2021-01-08] MEDS: INSULIN DETEMIR (LEVEMIR) 100 UNIT/ML SYR SQ SCH (08:11)
[2021-01-08] MEDS: INSULIN ASPART (NovoLOG) 100 UNIT/ML VIAL SQ SCH ×2 (08:11→12:56)
[2021-01-08] MEDS: METOPROLOL SUCCINATE (ER) 50 MG TAB.ER.24H PO SCH (08:11)
[2021-01-08] MEDS: ASCORBIC ACID 500 MG TAB PO SCH (08:12)
[2021-01-08] MEDS: PANTOPRAZOLE 40 MG TABLET PO SCH (08:12)
[2021-01-08] MEDS: METHYLPHENIDATE HCL 5 MG TAB PO SCH (08:12)
[2021-01-08] MEDS: tiZANidine 4 MG TAB PO SCH (08:13)
[2021-01-08] MEDS: busPIRone HCl 10 MG TAB PO SCH (08:14)
[2021-01-08] MEDS: METOCLOPRAMIDE 10 MG TAB PO SCH ×2 (08:14→12:56)
[2021-01-08] MEDS: MELOXICAM 7.5 MG TAB PO SCH (08:14)
[2021-01-08] MEDS: HYDROcodone/APAP 5-325MG 1 EACH TAB PO PRN (08:17)
[2021-01-08] MEDS: LEVOTHYROXINE 125 MCG TAB PO SCH (09:05)
[2021-01-08] MEDS: PATIENTS OWN MED PO SCH (09:14)
[2021-01-08 09:43] LABS: African American GFR (CKD) 126.5 (60.0-200.0); Non-African American GFR(CKD) 109.1 (60.0-200.0)
[2021-01-08 12:19] LABS: Glucose,Whole Blood 179 mg/dL (75-99)
[2021-01-08 13:08] VITALS: BP 127/86; PULSE 72; RESP 18
[2021-01-08 13:17] VITALS: BMI 41.5
--- NOTE | 2021-01-08 14:49 | PN ---
PROGRESS NOTE DATE OF SERVICE: 01/08/2021 REASON FOR FOLLOWUP: Staph epi bacteremia. INTERVAL HISTORY: The patient is currently afebrile. The patient has been feeling better. She is breathing comfortably. Denies having any chest pain, shortness of breath or cough. No abdominal pain. No diarrhea. PHYSICAL EXAMINATION: Blood pressure 144/85, pulse of 75, temperature 98.2. He is 99% on room air. General description is a middle-aged female lying in bed in no distress. RESPIRATORY SYSTEM: Unlabored breathing, clear to auscultation anteriorly. HEART: S1, S2. Regular rate and rhythm. ABDOMEN: Soft, no tenderness. LABS: Creatinine 0.7. Blood culture repeat has been. DIAGNOSTIC IMPRESSION AND PLAN: Patient admitted to the hospital with fever, did have positive culture from outside with Staph epi, recommending a week of IV vancomycin on discharge. Also checking blood cultures a week later from the port and evidence of bacteremia. If negative, no further workup will be planned. MMODL / IJN: [id number] /
--- NOTE | 2021-01-08 16:37 | P.DS ---
Providers Date of admission: 01/05/21 10:05 Expected date of discharge: 01/08/21 Attending physician: Adriana Douglas Consults: 01/04/21 11:52 Consult Physician Routine Consulting Provider: Juliane Llanes Consult Reason/Comments: sepsis Do you want consulting provider notified?: Yes Primary care physician: Julissa Mclaughlin [facility] Course: Final diagnosis Fever, possibly sepsis with coagulase-negative Staphylococcus Rule out Port-A-Cath infection Covid 19 ruled out Elevated lactic acid secondary to sepsis, present on admission Diabetes mellitus type 2, uncontrolled with hyperglycemia Hyponatremia Elevated d-dimer Increased white count History of chest pain, angina history of CVA, TIA Diabetes mellitus type 2 history of deep vein thrombosis history of syncope Hypothyroidism 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 [facility] Dysautonomia and progressive neurological disorder history of lupus anticoagulant history of Emily's disease History of lymphedema History of ventricular tachycardia History of pituitary microadenoma history of patent foremen although Narcolepsy Gastroparesis history of orthostatic hypotension and syncope History of migraine history of pernicious anemia history of polycystic ovarian syndrome istory of peripheral neuropathy, neurogenic bladder extended spectrum beta-lactamase with MRSA Uterine ablation history history of bipolar, depression Obesity with body mass index of 41.6 Full code Discharge disposition Patient is being discharged in a stable condition with guarded prognosis to home. Patient will follow-up with Dr. Montano in the outpatient setting upon discharge. Patient is to continue with vancomycin as ordered per infectious disease recommendations. Total time taken is greater than 35 minutes. Hospital course This is a 40-year-old female who was recently admitted with fever and possible sepsis with coagulase-negative staph bacteremia from an outside facility and was being closely monitored. Infectious disease following and patient will continue with vancomycin in the outpatient setting. Most recent blood cultures and urine cultures have been negative. Patient will continue with vancomycin per infectious disease recommendations for another week and close outpatient follow- up to monitor for continued clearance of bacteremia. Patient also instructed to follow-up with primary care provider Dr. Montano upon discharge. Currently no reports of chest pain, shortness of breath, or palpitations. Patient is afebrile. No reports of nausea or vomiting and patient is tolerating diet. Patient will be discharged home today. Guarded prognosis. On exam vital signs are stable. Cardio S1, S2 are muffled. Respiratory system shows diminished breath sounds at the bases with no wheezing or rhonchi noted. Abdomen is soft and nontender. Nervous system shows no focal deficits. Please refer to medication reconciliation sheet for a list of medications. Patient Condition at Discharge: Stable Plan - Discharge Summary New Discharge Prescriptions: New HYDROcodone/APAP 5-325MG [[place] 5-325] 1 each PO Q6HR PRN #10 tab PRN Reason: Pain Continue tiZANidine [Zanaflex] 4 mg PO BID@0900,1500 Levothyroxine Sodium [Synthroid] 100 mcg PO DAILY modafiniL [Provigil] 200 mg PO DAILY tab traMADol HCL [Ultram] 50 mg PO BID PRN PRN Reason: Mild To Moderate Pain Methenamine Hippurate 1 gm PO BID Mirabegron [Myrbetriq] 25 mg PO DAILY Insulin Aspart [NovoLOG Flexpen] See Protocol SQ ACHS Ergocalciferol [Vitamin D2 (DRISDOL)] 50,000 unit PO TAYLOR busPIRone HCL [Buspar] 30 mg PO BID 28 Days tab Fenofibrate [Lofibra] 160 mg PO HS tab Gabapentin [Neurontin] 400 mg PO TID cap Metoprolol Succinate (ER) [Toprol XL] 50 mg PO DAILY tab.er.24h Trimethoprim [Trimpex] 100 mg PO HS tab Rivaroxaban [Xarelto] 20 mg PO HS tab tiZANidine [Zanaflex] 8 mg PO HS tab Ondansetron [Zofran] 8 mg PO Q6H PRN tab PRN Reason: Nausea Acetaminophen Tab [Tylenol] 650 mg PO Q6H PRN PRN Reason: Fever And/ Or Pain Prochlorperazine Suppository [Compazine] 25 mg RECTAL Q8H PRN PRN Reason: Nausea Promethazine [Phenergan] 25 mg PO Q6H PRN PRN Reason: Nausea [place] Carbonate 900 mg PO HS Levothyroxine Sodium [Synthroid] 125 mcg PO MOTUWETH Albuterol Inhaler [Ventolin Hfa Inhaler] 1 puff INHALATION RT-Q4H PRN PRN Reason: Shortness Of Breath Dicyclomine [Bentyl] 20 mg PO Q8H PRN PRN Reason: Dyspepsia Clonidine Er 0.1mg 0.1 mg PO BID Butalbital/Aspirin/Caffeine [Axcjau-Wkqklax-Papvphfn 50-325-40 mg] 1 tab PO BID PRN PRN Reason: Migraine Headache Dexlansoprazole [Dexilant] 60 mg PO DAILY Ferrous Sulfate [Iron (65 MG Elemental)] 325 mg PO DAILY Galcanezumab-Gnlm [Emgality Pen] 120 mg SQ Q30D Insulin Glargine,Hum.rec.anlog [Lantus Solostar] 50 unit SQ DAILY Linaclotide [Linzess] 145 mcg PO DAILY PRN PRN Reason: Constipation OR IBS Meloxicam [Mobic] 15 mg PO DAILY Methylphenidate HCl [Ritalin] 5 mg PO BID Rizatriptan Benzoate [Rizatriptan] 5 mg PO BID PRN PRN Reason: Migraine Headache Sodium Chloride 0.9% Iv 500 ml IV SUMOWEFR Ascorbic Acid [Vitamin C] 1,000 mg PO DAILY hydrOXYzine pamoate [Vistaril] 50 - 100 mg PO HS Metoclopramide HCl [Reglan] 10 mg PO ACHS Discharge Medication List tiZANidine [Zanaflex] 4 mg PO BID@0900,1500 12/04/18 [History] Levothyroxine Sodium [Synthroid] 100 mcg PO DAILY 01/16/19 [History] modafiniL [Provigil] 200 mg PO DAILY tab 03/07/19 [Rx] traMADol HCL [Ultram] 50 mg PO BID PRN 06/28/19 [History] Methenamine Hippurate 1 gm PO BID 07/12/19 [History] Ergocalciferol [Vitamin D2 (DRISDOL)] 50,000 unit PO TAYLOR 10/08/19 [History] Insulin Aspart [NovoLOG Flexpen] See Protocol SQ ACHS 10/08/19 [History] Mirabegron [Myrbetriq] 25 mg PO DAILY 10/08/19 [History] Fenofibrate [Lofibra] 160 mg PO HS tab 10/17/19 [Rx] Gabapentin [Neurontin] 400 mg PO TID cap 10/17/19 [Rx] Metoprolol Succinate (ER) [Toprol XL] 50 mg PO DAILY tab.er.24h 10/17/19 [Rx] Ondansetron [Zofran] 8 mg PO Q6H PRN tab 10/17/19 [Rx] Rivaroxaban [Xarelto] 20 mg PO HS tab 10/17/19 [Rx] Trimethoprim [Trimpex] 100 mg PO HS tab 10/17/19 [Rx] busPIRone HCL [Buspar] 30 mg PO BID 28 Days tab 10/17/19 [Rx] tiZANidine [Zanaflex] 8 mg PO HS tab 10/17/19 [Rx] Acetaminophen Tab [Tylenol] 650 mg PO Q6H PRN 11/29/19 [History] [place] Carbonate 900 mg PO HS 11/29/19 [History] Prochlorperazine Suppository [Compazine] 25 mg RECTAL Q8H PRN 11/29/19 [History] Promethazine [Phenergan] 25 mg PO Q6H PRN 11/30/19 [History] Levothyroxine Sodium [Synthroid] 125 mcg PO MOTUWETH 12/28/19 [History] Albuterol Inhaler [Ventolin Hfa Inhaler] 1 puff INHALATION RT-Q4H PRN 09/19/20 [History] Ascorbic Acid [Vitamin C] 1,000 mg PO DAILY 09/19/20 [History] Butalbital/Aspirin/Caffeine [Nzjtoo-Ujoztlb-Gglicvfw 50-325-40 mg] 1 tab PO BID PRN 09/19/20 [History] Clonidine Er 0.1mg 0.1 mg PO BID 09/19/20 [History] Dexlansoprazole [Dexilant] 60 mg PO DAILY 09/19/20 [History] Dicyclomine [Bentyl] 20 mg PO Q8H PRN 09/19/20 [History] Ferrous Sulfate [Iron (65 MG Elemental)] 325 mg PO DAILY 09/19/20 [History] Galcanezumab-Gnlm [Emgality Pen] 120 mg SQ Q30D 09/19/20 [History] Insulin Glargine,Hum.rec.anlog [Lantus Solostar] 50 unit SQ DAILY 09/19/20 [History] Linaclotide [Linzess] 145 mcg PO DAILY PRN 09/19/20 [History] Meloxicam [Mobic] 15 mg PO DAILY 09/19/20 [History] Methylphenidate HCl [Ritalin] 5 mg PO BID 09/19/20 [History] Rizatriptan Benzoate [Rizatriptan] 5 mg PO BID PRN 09/19/20 [History] Sodium Chloride 0.9% Iv 500 ml IV SUMOWEFR 09/19/20 [History] Metoclopramide HCl [Reglan] 10 mg PO ACHS 01/03/21 [History] hydrOXYzine pamoate [Vistaril] 50 - 100 mg PO HS 01/03/21 [History] HYDROcodone/APAP 5-325MG [[place] 5-325] 1 each PO Q6HR PRN #10 tab 01/08/21 [Rx] Follow up Appointment(s)/Referral(s): Julissa Montano III, MD [Primary Care Provider] - 01/14/21 10:00 am [facility], [NON-STAFF] - 1 Week [facility], [REFERRING] - 1 Week Patient Instructions/Handouts: Hydrocodone/Acetaminophen (By mouth), Vancomycin (By injection), Bacteremia (DC) Activity/Diet/Wound Care/Special Instructions: Activity Limited until follow-up Follow-up with primary care provider upon discharge Continue IV antibiotic per infectious disease recommendations Continue current diet Discharge Disposition: HOME WITH HOME HEALTH SERVICES
[2021-01-09] MEDS ORDERED: VANCOMYCIN TROUGH DUE 1 EACH MISC MISCELLANE ONE (01:00)
[2021-01-29] MEDS ORDERED: NON FORMULARY DRUG (Galcanezumab-Gnlm [Emgality Pen] 120 MG/ML Pen.Injctr) SQ SCH (09:00)
== END 2021-01-08 15:35 | disposition home health service (06) | DRG 314 ==
LOC: EC 20:25 → 5NMEDONC 22:53 → OBSVTOIN 01-05 10:05
PROVIDERS: ADMIT Hospitalist; ATTEND Hospitalist
DX: T82.7XXA Infection and inflammatory reaction due to other cardiac and vascular devices, implants and grafts, initial encounter (principal); A41.89 Other specified sepsis; D68.62 Lupus anticoagulant syndrome; E87.1 Hypo-osmolality and hyponatremia; E87.2 Acidosis; F31.30 Bipolar disorder, current episode depressed, mild or moderate severity, unspecified; E88.40 Mitochondrial metabolism disorder, unspecified; I69.359 Hemiplegia and hemiparesis following cerebral infarction affecting unspecified side; Z68.41 Body mass index [BMI] 40.0-44.9, adult; I47.2 Ventricular tachycardia; Q21.1 Atrial septal defect; Z20.822 Contact with and (suspected) exposure to COVID-19; E06.3 Autoimmune thyroiditis; E11.65 Type 2 diabetes mellitus with hyperglycemia; E11.43 Type 2 diabetes mellitus with diabetic autonomic (poly)neuropathy; E11.40 Type 2 diabetes mellitus with diabetic neuropathy, unspecified; Z79.4 Long term (current) use of insulin; E66.9 Obesity, unspecified; G47.419 Narcolepsy without cataplexy; Z91.81 History of falling; G90.1 Familial dysautonomia [Riley-Day]; K31.84 Gastroparesis; N31.9 Neuromuscular dysfunction of bladder, unspecified; Z79.01 Long term (current) use of anticoagulants; Z79.1 Long term (current) use of non-steroidal anti-inflammatories (NSAID); Z79.890 Hormone replacement therapy; Z82.49 Family history of ischemic heart disease and other diseases of the circulatory system; Z83.3 Family history of diabetes mellitus; Z82.3 Family history of stroke; Z86.79 Personal history of other diseases of the circulatory system; Z86.718 Personal history of other venous thrombosis and embolism; G43.909 Migraine, unspecified, not intractable, without status migrainosus; Z88.7 Allergy status to serum and vaccine; Z88.8 Allergy status to other drugs, medicaments and biological substances; D51.0 Vitamin B12 deficiency anemia due to intrinsic factor deficiency; Z86.14 Personal history of Methicillin resistant Staphylococcus aureus infection; E28.2 Polycystic ovarian syndrome
CPT/HCPCS: 36415; 71046; 71275; 74177; 80048; 80053; 80202; 81003; 82565; 83036; 83605; 83615; 84145; 85025; 85379; 85610; 85652; 86140; 86308; 87040; 87086; 87635; 96361; 96365; 99285

== ENCOUNTER 2021-01-29 19:53 | Inpatient (IN) | payer MEDICARE, OTHER ==
[2021-01-29] MEDS ORDERED: ACETAMINOPHEN TAB 500 MG TAB PO STA (21:04)
[2021-01-29] MEDS ORDERED: SODIUM CHLORIDE 0.9% 500 ML 500 ML IV STA (21:05)
--- NOTE | 2021-01-29 21:54 | XR ---
EXAMINATION TYPE: XR chest 2V DATE OF EXAM: 01/29/2021 COMPARISON: Chest x-ray January 03, 2021. CTA chest January 04, 2021. HISTORY: Fever. TECHNIQUE: Frontal and lateral views of the chest are obtained. FINDINGS: Stable right internal jugular Mediport catheter. Stable low lung volumes. There is no new suspicious focal air space opacity, pleural effusion, or pneumothorax seen. The cardiac silhouette s ize remains within normal limits. The osseous structures are intact. IMPRESSION: No new suspicious acute pulmonary process.
[2021-01-29 22:11] LABS: Basophils # (A) 0.1 k/uL (0-0.2); Basophils % (A) 1 %; Eosinophils # (A) 0.5 k/uL (0-0.7); Eosinophils % (A) 3 %; HCT 39.7 % (34.0-46.0); HGB 13.6 gm/dL (11.4-16.0); Lymphocytes # (A) 2.5 k/uL (1.0-4.8); Lymphocytes % (A) 17 %; MCH 29.7 pg (25.0-35.0); MCHC 34.4 g/dL (31.0-37.0); MCV 86.4 fL (80.0-100.0); Mean Platelet Volume 6.8; Monocytes # (A) 0.9 k/uL (0-1.0); Monocytes % (A) 6 %; Neutrophils # (A) 11.1 k/uL (1.3-7.7); Neutrophils % (A) 73 %; Platelet Count 410 k/uL (150-450); RBC 4.59 m/uL (3.80-5.40); RDW 13.5 % (11.5-15.5); WBC 15.2 k/uL (3.8-10.6)
[2021-01-29 22:15] LABS: Appearance,Urine Cloudy (Clear); Bilirubin,Urine Negative (Negative); Blood,Urine Moderate (Negative); Calcium Oxalate Crystals,Urine Occasional /hpf; Color,Urine Yellow; Glucose,Urine (UA) 2+ (Negative); Hyaline Casts,Urine 18 /lpf (0-2); Ketones,Urine Trace (Negative); Leukocyte Esterase,Urine Negative (Negative); Mucus,Urine Occasional /hpf; Nitrite,Urine Negative (Negative); PH, Urine 5.5 (5.0-8.0); Protein,Urine 1+ (Negative); RBC,Urine 2 /hpf (0-5); Squamous Epithelial Cell,Urine 5 /hpf (0-4); WBC,Urine 4 /hpf (0-5)
[2021-01-29 22:55] LABS: Carbon Dioxide 20 mmol/L (22-30)
[2021-01-29] MEDS ORDERED: SODIUM CHLORIDE 0.9% 1,000 ML IV STA (22:57)
[2021-01-29 23:07] LABS: ALT 29 U/L (4-34); AST 38 U/L (14-36); African American GFR (CKD) >90 (>60 ml/min/1.73 sqM); Alkaline Phosphatase 75 U/L (38-126); Anion Gap 15 mmol/L; Blood Urea Nitrogen 11 mg/dL (7-17); Calcium 10.2 mg/dL (8.4-10.2); Chloride 105 mmol/L (98-107); Glucose 248 mg/dL (74-99); Non-African American GFR(CKD) >90 (>60 ml/min/1.73 sqM); Potassium 4.2 mmol/L (3.5-5.1); Sodium 140 mmol/L (137-145); Total Bilirubin 0.4 mg/dL (0.2-1.3); Total Protein 8.2 g/dL (6.3-8.2)
[2021-01-30] MEDS ORDERED: ACETAMINOPHEN TAB 325 MG TAB PO PRN (00:15)
[2021-01-30] MEDS ORDERED: NALOXONE 0.4 MG/ML 1 ML VIAL IV PRN (00:15)
--- NOTE | 2021-01-30 00:15 | ED ---
Fever HPI - General Chief Complaint: Fever Stated Complaint: abscess/fever Time Seen by Provider: 01/29/21 20:59 Source: patient Mode of arrival: wheelchair Limitations: no limitations - History of Present Illness Initial Comments: Patient is a 40-year-old female with history of TIA, diabetes, no disorder, thyroid disorder, presenting to the emergency Department with complaints of fever, nausea and fatigue since yesterday. Patient states she felt fatigued yesterday and then today noticed a fever, nausea and had a slight headache. Patient states she called her doctor who recommended her going into the ER. She does have history of sepsis from unknown infection source. She denies any chest pain, shortness of breath, generalized abdominal discomfort but no areas of pain. She denies any cough or congestion. She denies any sick contacts. She denies any dysuria. She did not take any Tylenol or Motrin yet today. She has no further complaints at this time. Upon arrival to the ER, she was febrile 99.9, pulse is 118, rest of vitals normal. - Related Data Home Medications Medication Instructions Recorded Confirmed tiZANidine [Zanaflex] 4 mg PO BID@0900,1500 12/04/18 01/03/21 Levothyroxine Sodium [Synthroid] 100 mcg PO DAILY 01/16/19 01/03/21 traMADol HCL [Ultram] 50 mg PO BID PRN 06/28/19 01/03/21 Methenamine Hippurate 1 gm PO BID 07/12/19 01/03/21 Ergocalciferol [Vitamin D2 50,000 unit PO TAYLOR 10/08/19 01/03/21 (DRISDOL)] Insulin Aspart [NovoLOG Flexpen] See Protocol SQ ACHS 10/08/19 01/03/21 Mirabegron [Myrbetriq] 25 mg PO DAILY 10/08/19 01/03/21 Acetaminophen Tab [Tylenol] 650 mg PO Q6H PRN 11/29/19 01/03/21 [place] Carbonate 900 mg PO HS 11/29/19 01/03/21 Prochlorperazine Suppository 25 mg RECTAL Q8H PRN 11/29/19 01/03/21 [Compazine] Promethazine [Phenergan] 25 mg PO Q6H PRN 11/30/19 01/03/21 Levothyroxine Sodium [Synthroid] 125 mcg PO MOTUWETH 12/28/19 01/03/21 Albuterol Inhaler [Ventolin Hfa 1 puff INHALATION RT-Q4H PRN 09/19/20 01/03/21 Inhaler] Ascorbic Acid [Vitamin C] 1,000 mg PO DAILY 09/19/20 01/03/21 Butalbital/Aspirin/Caffeine 1 tab PO BID PRN 09/19/20 01/03/21 [Vuwlff-Pptjkbm-Xpgmgoaz 50-325-40 mg] Clonidine Er 0.1mg 0.1 mg PO BID 09/19/20 01/03/21 Dexlansoprazole [Dexilant] 60 mg PO DAILY 09/19/20 01/03/21 Dicyclomine [Bentyl] 20 mg PO Q8H PRN 09/19/20 01/03/21 Ferrous Sulfate [Iron (65 MG 325 mg PO DAILY 09/19/20 01/03/21 Elemental)] Galcanezumab-Gnlm [Emgality Pen] 120 mg SQ Q30D 09/19/20 01/03/21 Insulin Glargine,Hum.rec.anlog 50 unit SQ DAILY 09/19/20 01/03/21 [Lantus Solostar] Linaclotide [Linzess] 145 mcg PO DAILY PRN 09/19/20 01/03/21 Meloxicam [Mobic] 15 mg PO DAILY 09/19/20 01/03/21 Methylphenidate HCl [Ritalin] 5 mg PO BID 09/19/20 01/03/21 Rizatriptan Benzoate [Rizatriptan] 5 mg PO BID PRN 09/19/20 01/03/21 Sodium Chloride 0.9% Iv 500 ml IV SUMOWEFR 09/19/20 01/03/21 Metoclopramide HCl [Reglan] 10 mg PO ACHS 01/03/21 01/03/21 hydrOXYzine pamoate [Vistaril] 50 - 100 mg PO HS 01/03/21 01/03/21 Previous Rx's Medication Instructions Recorded modafiniL [Provigil] 200 mg PO DAILY tab 03/07/19 Fenofibrate [Lofibra] 160 mg PO HS tab 10/17/19 Gabapentin [Neurontin] 400 mg PO TID cap 10/17/19 Metoprolol Succinate (ER) [Toprol 50 mg PO DAILY tab.er.24h 10/17/19 XL] Ondansetron [Zofran] 8 mg PO Q6H PRN tab 10/17/19 Rivaroxaban [Xarelto] 20 mg PO HS tab 10/17/19 Trimethoprim [Trimpex] 100 mg PO HS tab 10/17/19 busPIRone HCL [Buspar] 30 mg PO BID 28 Days tab 10/17/19 tiZANidine [Zanaflex] 8 mg PO HS tab 10/17/19 HYDROcodone/APAP 5-325MG [[place] 1 each PO Q6HR PRN #10 tab 01/08/21 5-325] Allergies Allergy/AdvReac Type Severity Reaction Status Date / Time barium sulfate Allergy Anaphylaxis Verified 01/29/21 19:58 doxepin [Doxepin] Allergy Anaphylaxis Verified 01/29/21 19:58 ephedrine Allergy Unknown Verified 01/29/21 19:58 ertapenem [From Invanz] Allergy Rash/Hives Verified 01/29/21 19:58 influenza virus vaccine, Allergy severe Verified 01/29/21 19:58 specific swelling [Influenza Virus and hives Vacc,Specific] peanut oil AdvReac Severe Nausea & Verified 01/29/21 19:58 Vomiting,itching doxycycline AdvReac Nausea & Verified 01/29/21 19:58 Vomiting & Diarrhea peanut AdvReac Nausea & Verified 01/29/21 19:58 Vomiting Pertussis Vaccines AdvReac fever/seizu Verified 01/29/21 19:58 re pseudoephedrine AdvReac Chest Pain Verified 01/29/21 19:58 pseudoephedrine HCl AdvReac Chest Pain Verified 01/29/21 19:58 [From Sudafed] sulfamethoxazole AdvReac Nausea & Verified 01/29/21 19:58 [From Bactrim] Vomiting trimethoprim [From Bactrim] AdvReac Nausea & Verified 01/29/21 19:58 Vomiting Review of Systems ROS Statement: Those systems with pertinent positive or pertinent negative responses have been documented in the HPI. ROS Other: All systems not noted in ROS Statement are negative. Past Medical History Past Medical History: Chest Pain / Angina, CVA/TIA, Diabetes Mellitus, Deep Vein Thrombosis (DVT), Neurologic Disorder, Syncope, Thyroid Disorder Additional Past Medical History / Comment(s): STROKE LIKE EPISODE D/T FEDERICO CHRONDIAL DISEASE HAD WORK UP DONE AT [facility]. Dysautonomia-progressive neurological disorder, lupus/LUPUS ANTICOAGULANTS, ana maria's disease, lymphedema Lt arm d/t DVTs , v-tach, pituitary microadenoma. patent foramen ovale, narcolepsy, gastropareis, IDDM type II, falls, orthostatic hypotension/syncope, migraines with hemiplegia, pernicious anemia, polycystic ovarian syndrome, neuropathy bilateral legs/feet - mild, uti's. neurogenic bladder, stress incontinence History of Any Multi-Drug Resistant Organisms: ESBL, MRSA Date of last positivie culture/infection: 03/09/17 MRSA/ 05/17/18 ESBL MDRO Source:: MRSA LEFT ARM,/ESBL URINE ECOLI Past Surgical History: Uterine Ablation Additional Past Surgical History / Comment(s): colonscopy/egd, angie, PORT-A -CATH INSERTION 04-28-18, Past Anesthesia/Blood Transfusion Reactions: No Reported Reaction Additional Past Anesthesia/Blood Transfusion Reaction / Comment(s): patient stat es "It takes a lot of anesthesia for my body to react". Pt has received blood in past without reaction. Past Psychological History: Bipolar, Depression Smoking Status: Never smoker Past Alcohol Use History: None Reported Past Drug Use History: None Reported - Past Family History Brother(s) Family Medical History: Diabetes Mellitus, Hyperlipidemia, Hypertension Additional Family Medical History / Comment(s): Patient states she has 1 brother with no major medical problems. Father Family Medical History: Diabetes Mellitus, Hyperlipidemia, Hypertension Additional Family Medical History / Comment(s): DAD IS 70 YEARS OLD. Patient states she does not have any contact with her father and does not know his medical history. Mother Family Medical History: CVA/TIA, Deep Vein Thrombosis (DVT) Additional Family Medical History / Comment(s): antiphospholipid antibody syndrome General Exam - General Exam Comments Initial Comments: GENERAL: Patient is well-developed and well-nourished. Patient is nontoxic and in no acute distress. HEAD: Atraumatic, normocephalic. EYES: Pupils equal round and reactive to light, extraocular movements intact, sclera anicteric, conjunctiva are normal. Eyelids were unremarkable. ENT: TMs normal, nares patent, oropharynx clear without exudates. Moist mucous membranes. NECK: Normal range of motion, supple without lymphadenopathy or JVD. LUNGS: Unlabored respirations. Breath sounds clear to auscultation bilaterally and equal. No wheezes rales or rhonchi. HEART: Regular rate and rhythm without murmurs, rubs or gallops. ABDOMEN: Soft, nontender, normoactive bowel sounds. No guarding, no rebound. No masses appreciated. : Deferred MUSCULOSKELETAL: Normal extremities with adequate strength and normal range of motion, no pitting or edema. No clubbing or cyanosis. NEUROLOGICAL: Patient is alert and oriented x 3. Motor and sensory are also intact. Cranial nerves II through XII grossly intact. Symmetrical smile. Normal speech. PSYCH: Normal mood, normal affect. SKIN: Warm, Dry, normal turgor, no rashes or lesions noted. Limitations: no limitations Course Vital Signs 01/29/21 01/29/21 01/29/21 19:54 21:58 23:30 Temperature 99.9 F H 99.4 F Pulse Rate 118 H 101 H 99 Respiratory 18 20 20 Rate Blood Pressure 141/97 155/103 148/92 O2 Sat by Pulse 96 96 96 Oximetry Medical Decision Making - Medical Decision Making Patient is a 40-year-old female here with concern of fever, fatigue, nausea that started yesterday. She did arrive febrile 99.9 and tachycardia. Her exam is unremarkable, no acute findings. EKG shows sinus tach otherwise no acute process. He shows no acute findings. Labs shows white count of 15.2, lactic acid is elevated at 3.6. Glucose 248. Urine shows moderate blood, no bacteria. Influenza and Covid are both negative. Patient was given a liter and half of fluids, Tylenol. She does report some mild improvement in her symptoms. Vital signs also improved. Given patient's history, nor source for possible infection at this time and elevated lactic acid, patient will be admitted for observation. We will continue with fluids. Blood cultures are pending. Patient accepted by [facility]. Case discussed with Dr. Diaz. - Lab Data Result diagrams: 01/29/21 21:44 01/29/21 21:44 Lab Results 01/29/21 01/29/21 01/29/21 Range/Units 21:44 21:44 21:44 WBC 15.2 H (3.8-10.6) k/uL RBC 4.59 (3.80-5.40) m/uL Hgb 13.6 (11.4-16.0) gm/dL Hct 39.7 (34.0-46.0) % MCV 86.4 (80.0-100.0) fL MCH 29.7 (25.0-35.0) pg MCHC 34.4 (31.0-37.0) g/dL RDW 13.5 (11.5-15.5) % Plt Count 410 (150-450) k/uL MPV 6.8 Neutrophils % 73 % Lymphocytes % 17 % Monocytes % 6 % Eosinophils % 3 % Basophils % 1 % Neutrophils # 11.1 H (1.3-7.7) k/uL Lymphocytes # 2.5 (1.0-4.8) k/uL Monocytes # 0.9 (0-1.0) k/uL Eosinophils # 0.5 (0-0.7) k/uL Basophils # 0.1 (0-0.2) k/uL Sodium 140 (137-145) mmol/L Potassium 4.2 (3.5-5.1) mmol/L Chloride 105 (98-107) mmol/L Carbon Dioxide 20 L (22-30) mmol/L Anion Gap 15 mmol/L BUN 11 (7-17) mg/dL Creatinine 0.70 (0.52-1.04) mg/dL Est GFR (CKD-EPI)AfAm >90 (>60 ml/min/1.73 sqM) Est GFR (CKD-EPI)NonAf >90 (>60 ml/min/1.73 sqM) Glucose 248 H (74-99) mg/dL Plasma Lactic Acid Joce (0.7-2.0) mmol/L Calcium 10.2 (8.4-10.2) mg/dL Total Bilirubin 0.4 (0.2-1.3) mg/dL AST 38 H (14-36) U/L ALT 29 (4-34) U/L Alkaline Phosphatase 75 (38-126) U/L C-Reactive Protein 22.0 H (<10.0) mg/L Total Protein 8.2 (6.3-8.2) g/dL Albumin 5.0 (3.5-5.0) g/dL Urine Color Yellow Urine Appearance Cloudy H (Clear) Urine pH 5.5 (5.0-8.0) Ur Specific [place] 1.030 (1.001-1.035) Urine Protein 1+ H (Negative) Urine Glucose (UA) 2+ H (Negative) Urine Ketones Trace H (Negative) Urine Blood Moderate H (Negative) Urine Nitrite Negative (Negative) Urine Bilirubin Negative (Negative) Urine Urobilinogen 2.0 (<2.0) mg/dL Ur Leukocyte Esterase Negative (Negative) Urine RBC 2 (0-5) /hpf Urine WBC 4 (0-5) /hpf Ur Squamous Epith Cells 5 H (0-4) /hpf Calcium Oxalate Crystal Occasional H (None) /hpf Hyaline Casts 18 H (0-2) /lpf Urine Mucus Occasional H (None) /hpf Coronavirus (PCR) (Not Detectd) Influenza Type A RNA (Not Detectd) Influenza Type B (PCR) (Not Detectd) 01/29/21 01/29/21 01/29/21 Range/Units 21:44 21:44 21:44 WBC (3.8-10.6) k/uL RBC (3.80-5.40) m/uL Hgb (11.4-16.0) gm/dL Hct (34.0-46.0) % MCV (80.0-100.0) fL MCH (25.0-35.0) pg MCHC (31.0-37.0) g/dL RDW (11.5-15.5) % Plt Count (150-450) k/uL MPV Neutrophils % % Lymphocytes % % Monocytes % % Eosinophils % % Basophils % % Neutrophils # (1.3-7.7) k/uL Lymphocytes # (1.0-4.8) k/uL Monocytes # (0-1.0) k/uL Eosinophils # (0-0.7) k/uL Basophils # (0-0.2) k/uL Sodium (137-145) mmol/L Potassium (3.5-5.1) mmol/L Chloride (98-107) mmol/L Carbon Dioxide (22-30) mmol/L Anion Gap mmol/L BUN (7-17) mg/dL Creatinine (0.52-1.04) mg/dL Est GFR (CKD-EPI)AfAm (>60 ml/min/1.73 sqM) Est GFR (CKD-EPI)NonAf (>60 ml/min/1.73 sqM) Glucose (74-99) mg/dL Plasma Lactic Acid Joce 3.6 H* (0.7-2.0) mmol/L Calcium (8.4-10.2) mg/dL Total Bilirubin (0.2-1.3) mg/dL AST (14-36) U/L ALT (4-34) U/L Alkaline Phosphatase (38-126) U/L C-Reactive Protein (<10.0) mg/L Total Protein (6.3-8.2) g/dL Albumin (3.5-5.0) g/dL Urine Color Urine Appearance (Clear) Urine pH (5.0-8.0) Ur Specific [place] (1.001-1.035) Urine Protein (Negative) Urine Glucose (UA) (Negative) Urine Ketones (Negative) Urine Blood (Negative) Urine Nitrite (Negative) Urine Bilirubin (Negative) Urine Urobilinogen (<2.0) mg/dL Ur Leukocyte Esterase (Negative) Urine RBC (0-5) /hpf Urine WBC (0-5) /hpf Ur Squamous Epith Cells (0-4) /hpf Calcium Oxalate Crystal (None) /hpf Hyaline Casts (0-2) /lpf Urine Mucus (None) /hpf Coronavirus (PCR) Not Detected (Not Detectd) Influenza Type A RNA Not Detected (Not Detectd) Influenza Type B (PCR) Not Detected (Not Detectd) - EKG Data EKG Comments: Sinus tachycardia, nonspecific T-wave abnormalities, no signs of acute ischemia. Ventricular rate 110, MD interval 142, QTC 360. Similar to previous EKG on 01/16/2020. Disposition Clinical Impression: Lactic acidosis, Fever Disposition: ADMITTED IP TO THIS HOSP Condition: Stable Referrals: Julissa Montano III, MD [Primary Care Provider] - 1-2 days Decision Date: 01/30/21 Decision Time: 00:13
[2021-01-30] MEDS: SODIUM CHLORIDE 0.9% 1,000 ML IV SCH ×2 (00:52→15:04)
[2021-01-30] MEDS: ONDANSETRON 4 MG/2 ML VIAL IVP PRN ×2 (07:01→21:45)
[2021-01-30] MEDS ORDERED: traMADol 50 MG TAB PO PRN (10:19)
[2021-01-30] MEDS ORDERED: DICYCLOMINE 20 MG TAB PO PRN (10:19)
[2021-01-30] MEDS ORDERED: ALBUTEROL NEBULIZED 2.5 MG/3 ML INHALATION PRN (10:19)
[2021-01-30] MEDS ORDERED: NON FORMULARY DRUG (Butalbital/Aspirin/Caffeine [Butalb-Aspirin-Caffeine 50-325-40 Mg] 1 E PO PRN (10:19)
[2021-01-30] MEDS ORDERED: SUMAtriptan succinate 50 MG TAB PO PRN (10:19)
[2021-01-30] MEDS ORDERED: LEVOTHYROXINE 125 MCG TAB PO SCH (10:30)
[2021-01-30] MEDS: METOPROLOL SUCCINATE (ER) 50 MG TAB.ER.24H PO SCH (11:56)
[2021-01-30] MEDS: PANTOPRAZOLE 40 MG TABLET PO SCH (11:58)
[2021-01-30] MEDS: INSULIN DETEMIR (LEVEMIR) 100 UNIT/ML SYR SQ SCH (11:58)
[2021-01-30] MEDS: LEVOTHYROXINE 100 MCG TAB PO SCH (11:58)
[2021-01-30 13:08] LABS: Glucose,Whole Blood 218 mg/dL (75-99)
[2021-01-30] MEDS: GABAPENTIN 400 MG CAP PO SCH ×2 (15:10→21:12)
[2021-01-30] MEDS: ACETAMINOPHEN TAB 325 MG TAB PO PRN (15:12)
[2021-01-30 17:04] LABS: Glucose,Whole Blood 160 mg/dL (75-99)
[2021-01-30] MEDS: INSULIN ASPART (NovoLOG) 100 UNIT/ML VIAL SQ SCH ×2 (17:32→21:17)
[2021-01-30] MEDS ORDERED: TRIMETHOPRIM 100 MG TAB PO SCH (21:00)
[2021-01-30] MEDS ORDERED: RIVAROXABAN 20 MG TAB PO SCH (21:00)
[2021-01-30] MEDS ORDERED: LITHIUM CARBONATE 300 MG CAP PO SCH (21:00)
[2021-01-30] MEDS ORDERED: FENOFIBRATE 160 MG TAB PO SCH (21:00)
[2021-01-30] MEDS ORDERED: METHYLPHENIDATE HCL 5 MG TAB PO SCH (21:00)
[2021-01-30] MEDS: busPIRone HCl 10 MG TAB PO SCH (21:12)
[2021-01-30 21:18] LABS: Glucose,Whole Blood 123 mg/dL (75-99)
[2021-01-30] MEDS ORDERED: hydrOXYzine pamoate 25 MG CAP PO SCH (21:45)
--- NOTE | 2021-01-31 00:02 | P.HPIM ---
History of Present Illness H&P Date: 01/30/21 Chief Complaint: Generalized weakness and lethargy Patient is a 40-year-old female with a known history of CVA/TIA, history of mitochondrial disease and had work-up done at [facility], dysautonomia progressive neurological disorder, lupus anticoagulant positive, Ana Maria's disease, chronic lymphedema left arm with history of DVTs, pituitary microadenoma other multiple medical problems and recent history of bacteremia status post antibiotic course via [facility] presents to ER with complaints of fever, nausea and fatigue since yesterday. Patient states that she did have fever yesterday and today was feeling very nauseated. Patient called her primary care physician recommended to go to ER. Otherwise patient denied any complaints of chest pain shortness of breath or abdominal pain. No diarrhea. No cough or sputum production. Denies any dysuria or hematuria. Chest x-ray showed new no new suspicious acute pulmonary process. EKG showed sinus tachycardia Laboratory data showed WBC 15.2, hemoglobin 13.6 and blood sugar 248, lactic acid 3.6, CRP 22 UA showed cloudy with 1+ protein 2+ glucose and moderate blood. Leukocyte esterase negative. Influenza a and B and coronavirus PCR not detected. Review of Systems Constitutional: Generalized weakness and lethargy. Subjective fevers and chills at home.. Abdomen: Patient does have nausea and vomiting. No abdominal pain or diarrhea. Cardiovascular: Patient denies any chest pain or short of breath no palpitations. Respiratory: patient denied any cough or sputum production. No shortness of breath Neurologic: Patient denied any numbness or tingling headache. Musculoskeletal: Patient denies any complaints of joint swelling or deformity. Skin: Negative Psychiatric: Negative Endocrine: No heat or cold intolerance. No recent weight gain. Genitourinary: No dysuria or hematuria. All other 14 point ROS negative except the above Past Medical History Past Medical History: Chest Pain / Angina, CVA/TIA, Diabetes Mellitus, Deep Vein Thrombosis (DVT), Neurologic Disorder, Syncope, Thyroid Disorder Additional Past Medical History / Comment(s): STROKE LIKE EPISODE D/T MITOCHRONDIAL DISEASE HAD WORK UP DONE AT [facility]. Dysautonomia-progressive neurological disorder, lupus/LUPUS ANTICOAGULANTS, ana maria's disease, lymphedema Lt arm d/t DVTs , v-tach, pituitary microadenoma. patent foramen ovale, narcolepsy, gastropareis, IDDM type II, falls, orthostatic hypotensi on/syncope, migraines with hemiplegia, pernicious anemia, polycystic ovarian syndrome, neuropathy bilateral legs/feet - mild, uti's. neurogenic bladder, stress incontinence History of Any Multi-Drug Resistant Organisms: ESBL, MRSA Date of last positivie culture/infection: 03/09/17 MRSA/ 05/17/18 ESBL MDRO Source:: MRSA LEFT ARM,/ESBL URINE ECOLI Past Surgical History: Uterine Ablation Additional Past Surgical History / Comment(s): colonscopy/egd, angie, PORT-A -CATH INSERTION 04-28-18, Past Anesthesia/Blood Transfusion Reactions: No Reported Reaction Additional Past Anesthesia/Blood Transfusion Reaction / Comment(s): patient states "It takes a lot of anesthesia for my body to react". Pt has received blood in past without reaction. Past Psychological History: Bipolar, Depression Additional Psychological History / Comment(s): Single and lives with her mother. No experience. No tobacco or alcohol use Smoking Status: Never smoker Past Alcohol Use History: None Reported Additional Past Alcohol Use History / Comment(s): Patient is a lifelong nonsmoker. She denies any medical marijuana, marijuana, street drug or alcohol use. She resides with her mom. She can walk short distances and otherwise uses a wheelchair. She has a walker. She does not drive but usually gets appointme nts by Bus. She has history of suicide attempt in 2015 but states depression is stable. No animal exposures. Patient is single without children. Patient denies any family members with her genetic disorder. Past Drug Use History: None Reported - Past Family History Brother(s) Family Medical History: Diabetes Mellitus, Hyperlipidemia, Hypertension Additional Family Medical History / Comment(s): Patient states she has 1 brother with no major medical problems. Father Family Medical History: Diabetes Mellitus, Hyperlipidemia, Hypertension Additional Family Medical History / Comment(s): DAD IS 70 YEARS OLD. Patient states she does not have any contact with her father and does not know his medical history. Mother Family Medical History: CVA/TIA, Deep Vein Thrombosis (DVT) Additional Family Medical History / Comment(s): antiphospholipid antibody syndrome lupas dementia Medications and Allergies Home Medications Medication Instructions Recorded Confirmed Type tiZANidine [Zanaflex] 4 mg PO BID@0900,1500 12/04/18 01/30/21 History Levothyroxine Sodium [Synthroid] 100 mcg PO DAILY 01/16/19 01/30/21 History modafiniL [Provigil] 200 mg PO DAILY tab 03/07/19 01/30/21 Rx traMADol HCL [Ultram] 50 mg PO BID PRN 06/28/19 01/30/21 History Methenamine Hippurate 1 gm PO BID 07/12/19 01/30/21 History Ergocalciferol [Vitamin D2 50,000 unit PO TAYLOR 10/08/19 01/30/21 History (DRISDOL)] Insulin Aspart [NovoLOG Flexpen] See Protocol SQ ACHS 10/08/19 01/30/21 History Mirabegron [Myrbetriq] 25 mg PO DAILY 10/08/19 01/30/21 History Fenofibrate [Lofibra] 160 mg PO HS tab 10/17/19 01/30/21 Rx Gabapentin [Neurontin] 400 mg PO TID cap 10/17/19 01/30/21 Rx Metoprolol Succinate (ER) [Toprol 50 mg PO DAILY tab.er.24h 10/17/19 01/30/21 Rx XL] Ondansetron [Zofran] 8 mg PO Q6H PRN tab 10/17/19 01/30/21 Rx Rivaroxaban [Xarelto] 20 mg PO HS tab 10/17/19 01/30/21 Rx Trimethoprim [Trimpex] 100 mg PO HS tab 10/17/19 01/30/21 Rx busPIRone HCL [Buspar] 30 mg PO BID 28 Days tab 10/17/19 01/30/21 Rx tiZANidine [Zanaflex] 8 mg PO HS tab 10/17/19 01/30/21 Rx Acetaminophen Tab [Tylenol] 650 mg PO Q6H PRN 11/29/19 01/30/21 History [place] Carbonate 900 mg PO HS 11/29/19 01/30/21 History Prochlorperazine Suppository 25 mg RECTAL Q8H PRN 11/29/19 01/30/21 History [Compazine] Promethazine [Phenergan] 25 mg PO Q6H PRN 11/30/19 01/30/21 History Levothyroxine Sodium [Synthroid] 125 mcg PO MOTUWETH 12/28/19 01/30/21 History Albuterol Inhaler [Ventolin Hfa 1 puff INHALATION RT-Q4H PRN 09/19/20 01/30/21 History Inhaler] Ascorbic Acid [Vitamin C] 1,000 mg PO DAILY 09/19/20 01/30/21 History Butalbital/Aspirin/Caffeine 1 tab PO BID PRN 09/19/20 01/30/21 History [Fhncgh-Glvnwzp-Zioakrxy 50-325-40 mg] Clonidine Er 0.1mg 0.1 mg PO BID 09/19/20 01/30/21 History Dexlansoprazole [Dexilant] 60 mg PO DAILY 09/19/20 01/30/21 History Dicyclomine [Bentyl] 20 mg PO Q8H PRN 09/19/20 01/30/21 History Ferrous Sulfate [Iron (65 MG 325 mg PO DAILY 09/19/20 01/30/21 History Elemental)] Galcanezumab-Gnlm [Emgality Pen] 120 mg SQ Q30D 09/19/20 01/30/21 History Insulin Glargine,Hum.rec.anlog 50 unit SQ DAILY 09/19/20 01/30/21 History [Lantus Solostar] Linaclotide [Linzess] 145 mcg PO DAILY PRN 09/19/20 01/30/21 History Meloxicam [Mobic] 15 mg PO DAILY 09/19/20 01/30/21 History Methylphenidate HCl [Ritalin] 5 mg PO BID 09/19/20 01/30/21 History Rizatriptan Benzoate [Rizatriptan] 5 mg PO BID PRN 09/19/20 01/30/21 History Sodium Chloride 0.9% Iv 500 ml IV SUMOWEFR 09/19/20 01/30/21 History Metoclopramide HCl [Reglan] 10 mg PO ACHS 01/03/21 01/30/21 History hydrOXYzine pamoate [Vistaril] 50 - 100 mg PO HS 01/03/21 01/30/21 History Allergies Allergy/AdvReac Type Severity Reaction Status Date / Time barium sulfate Allergy Anaphylaxis Verified 01/30/21 06:34 doxepin [Doxepin] Allergy Anaphylaxis Verified 01/30/21 06:34 ephedrine Allergy Unknown Verified 01/30/21 06:34 ertapenem [From Invanz] Allergy Rash/Hives Verified 01/30/21 06:34 influenza virus vaccine, Allergy severe Verified 01/30/21 06:34 specific swelling [Influenza Virus and hives Vacc,Specific] peanut oil AdvReac Severe Nausea & Verified 01/30/21 06:34 Vomiting,itching doxycycline AdvReac Nausea & Verified 01/30/21 06:34 Vomiting & Diarrhea peanut AdvReac Nausea & Verified 01/30/21 06:34 Vomiting Pertussis Vaccines AdvReac fever/seizu Verified 01/30/21 06:34 re pseudoephedrine AdvReac Chest Pain Verified 01/30/21 06:34 pseudoephedrine HCl AdvReac Chest Pain Verified 01/30/21 06:34 [From Sudafed] sulfamethoxazole AdvReac Nausea & Verified 01/30/21 06:34 [From Bactrim] Vomiting trimethoprim [From Bactrim] AdvReac Nausea & Verified 01/30/21 06:34 Vomiting Physical Exam Vitals: Vital Signs Temp Pulse Pulse Resp BP BP Pulse Ox 01/30/21 07:22 98.4 F 91 19 136/82 97 01/30/21 07:00 98.4 F 91 19 136/82 97 01/30/21 06:58 99.4 F 87 18 158/98 96 01/30/21 00:53 99.3 F 103 H 20 148/98 96 01/29/21 23:30 99.4 F 99 20 148/92 96 01/29/21 21:58 101 H 20 155/103 96 01/29/21 19:54 99.9 F H 118 H 18 141/97 96 Intake and Output 01/29/21 01/30/21 01/30/21 22:59 06:59 14:59 Other: # Voids 0 Weight 117.934 kg 117.934 kg PHYSICAL EXAMINATION: Patient is lying in the bed comfortably, no acute distress, awake alert and oriented.. HEENT: Normocephalic. Neck is supple. Pupils reactive. Nostrils clear. Oral cavity is moist. Ears reveal no drainage. Neck reveals no JVD, carotid bruits, or thyromegaly. CHEST EXAMINATION: Trachea is central. Symmetrical expansion. Lung kebede clear to auscultation and percussion. CARDIAC: Normal S1, S2 with no gallops. No murmurs ABDOMEN: Soft. Bowel sounds normal. No organomegaly. No abdominal bruits. Extremities: reveal no edema. No clubbing or cyanosis Neurologically awake, alert, oriented x3 with well-coordinated movements. No focal deficits noted Skin: No rash or skin lesions. Psychiatric: Coperative. Nonsuicidal Musculoskeletal: No joint swelling or deformity. Normal range of motion. Results CBC & Chem 7: 01/29/21 21:44 01/29/21 21:44 Labs: Abnormal Lab Results - Last 24 Hours (Table) 01/29/21 01/29/21 01/29/21 Range/Units 21:44 21:44 21:44 WBC 15.2 H (3.8-10.6) k/uL Neutrophils # 11.1 H (1.3-7.7) k/uL Carbon Dioxide 20 L (22-30) mmol/L Glucose 248 H (74-99) mg/dL Plasma Lactic Acid Joce (0.7-2.0) mmol/L AST 38 H (14-36) U/L C-Reactive Protein 22.0 H (<10.0) mg/L Urine Appearance Cloudy H (Clear) Urine Protein 1+ H (Negative) Urine Glucose (UA) 2+ H (Negative) Urine Ketones Trace H (Negative) Urine Blood Moderate H (Negative) Ur Squamous Epith Cells 5 H (0-4) /hpf Calcium Oxalate Crystal Occasional H (None) /hpf Hyaline Casts 18 H (0-2) /lpf Urine Mucus Occasional H (None) /hpf 01/29/21 01/30/21 Range/Units 21:44 00:58 WBC (3.8-10.6) k/uL Neutrophils # (1.3-7.7) k/uL Carbon Dioxide (22-30) mmol/L Glucose (74-99) mg/dL Plasma Lactic Acid Joce 3.6 H* 3.5 H* (0.7-2.0) mmol/L AST (14-36) U/L C-Reactive Protein (<10.0) mg/L Urine Appearance (Clear) Urine Protein (Negative) Urine Glucose (UA) (Negative) Urine Ketones (Negative) Urine Blood (Negative) Ur Squamous Epith Cells (0-4) /hpf Calcium Oxalate Crystal (None) /hpf Hyaline Casts (0-2) /lpf Urine Mucus (None) /hpf Thrombosis Risk Factor Assmnt - DVT/VTE Prophylaxis DVT/VTE Prophylaxis: Pharmacologic Prophylaxis ordered - Choose All That Apply Each Factor Represents 1 point: Obesity (BMI >25), Sepsis (< 1month) Other Risk Factors: Yes Thrombosis Risk Factor Assessment Total Risk Factor Score: 2 Thrombosis Risk Factor Assessment Level: Low Risk Assessment and Plan Assessment: Lactic acidosis and leukocytosis without any evidence of infection. Follow-up culture report. Elevated CRP level 22 Generalized weakness and fatigue. Recent history of sepsis and bacteremia status post antibiotic course History of lupus anticoagulant currently on long-term anticoagulation Ana Maria's thyroiditis History of DVTs Mitochondrial disease, dysautonomia progressive neurological disorder. History of foramen ovale Narcolepsy History of gastroparesis Diabetes type 2 with hyperglycemia uncontrolled. Migraine headaches and history of hemiplegia Polycystic ovarian syndrome Bilateral peripheral neuropathy diabetic Neurogenic bladder Stress incontinence Bipolar disorder and depression DVT prophylaxis patient is already Xarelto Plan: Patient will be continued on IV hydration and follow-up lactic acid level. Follow-up culture report. Continue with home medications and further recommendations based on the clinical course. Patient is clinically improving. Consider ID evaluation if the patient continues to have leukocytosis. Prognosis guarded at this time. Time with Patient: Greater than 30
[2021-01-31] MEDS: SODIUM CHLORIDE 0.9% 1,000 ML IV SCH (06:02)
[2021-01-31] MEDS: LEVOTHYROXINE 100 MCG TAB PO SCH (06:02)
[2021-01-31 06:16] LABS: Basophils # (A) 0.1 k/uL (0-0.2); Basophils % (A) 1 %; Eosinophils # (A) 0.3 k/uL (0-0.7); Eosinophils % (A) 4 %; HCT 35.5 % (34.0-46.0); HGB 12.1 gm/dL (11.4-16.0); Lymphocytes # (A) 1.7 k/uL (1.0-4.8); Lymphocytes % (A) 21 %; MCH 29.6 pg (25.0-35.0); MCHC 34.1 g/dL (31.0-37.0); MCV 86.8 fL (80.0-100.0); Mean Platelet Volume 6.8; Monocytes # (A) 0.5 k/uL (0-1.0); Monocytes % (A) 6 %; Neutrophils # (A) 5.5 k/uL (1.3-7.7); Neutrophils % (A) 67 %; Platelet Count 303 k/uL (150-450); RBC 4.09 m/uL (3.80-5.40); RDW 13.5 % (11.5-15.5); WBC 8.1 k/uL (3.8-10.6)
[2021-01-31 06:29] LABS: African American GFR (CKD) >90 (>60 ml/min/1.73 sqM); Anion Gap 9 mmol/L; Blood Urea Nitrogen 5 mg/dL (7-17); Carbon Dioxide 22 mmol/L (22-30); Chloride 108 mmol/L (98-107); Glucose 160 mg/dL (74-99); Non-African American GFR(CKD) >90 (>60 ml/min/1.73 sqM); Potassium 3.7 mmol/L (3.5-5.1); Sodium 139 mmol/L (137-145)
[2021-01-31 07:15] LABS: Glucose,Whole Blood 203 mg/dL (75-99)
[2021-01-31 07:58] VITALS: BP 132/86; PULSE 84; RESP 16; TEMP 98.1
[2021-01-31] MEDS: INSULIN DETEMIR (LEVEMIR) 100 UNIT/ML SYR SQ SCH (07:58)
[2021-01-31] MEDS: INSULIN ASPART (NovoLOG) 100 UNIT/ML VIAL SQ SCH (07:58)
[2021-01-31] MEDS: GABAPENTIN 400 MG CAP PO SCH (07:59)
[2021-01-31] MEDS: METOPROLOL SUCCINATE (ER) 50 MG TAB.ER.24H PO SCH (07:59)
[2021-01-31] MEDS: PANTOPRAZOLE 40 MG TABLET PO SCH (07:59)
[2021-01-31] MEDS: busPIRone HCl 10 MG TAB PO SCH (07:59)
[2021-01-31] MEDS: ONDANSETRON 4 MG/2 ML VIAL IVP PRN (08:08)
[2021-01-31] MEDS ORDERED: METHYLPHENIDATE HCL 5 MG TAB PO SCH (09:00)
[2021-01-31] MEDS ORDERED: ASCORBIC ACID 500 MG TAB PO SCH (09:00)
[2021-01-31] MEDS: ACETAMINOPHEN TAB 325 MG TAB PO PRN (10:14)
[2021-01-31 11:15] LABS: Glucose,Whole Blood 165 mg/dL (75-99)
[2021-02-01] MEDS ORDERED: ERGOCALCIFEROL 1,250 MCG (50,000 IU) CAPSULE PO SCH (09:00)
[2021-02-02] MEDS ORDERED: LEVOTHYROXINE 125 MCG TAB PO SCH (06:30)
--- NOTE | 2021-02-07 22:15 | P.DS ---
Providers Date of admission: 01/30/21 11:18 Expected date of discharge: 01/31/21 Attending physician: Adriana Douglas Primary care physician: Julissa Mclaughlin [facility] Course: Discharge diagnosis Lactic acidosis and leukocytosis without any evidence of infection. Follow-up culture report- negative. Leukocytosis resolved. Elevated CRP level Generalized weakness and fatigue. 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 History of foramen ovale Narcolepsy History of gastroparesis Diabetes type 2 with hyperglycemia uncontrolled. Migraine headaches and history of hemiplegia Polycystic ovarian syndrome Bilateral peripheral neuropathy diabetic Neurogenic bladder Stress incontinence Bipolar disorder and depression DVT prophylaxis patient is already Xarelto Hospital course Patient is a 40-year-old female with a known history of CVA/TIA, history of mitochondrial disease and had work-up done at [facility], dysautonomia progressive neurological disorder, lupus anticoagulant positive, Emily's disease, chronic lymphedema left arm with history of DVTs, pituitary microadenoma other multiple medical problems and recent history of bacteremia status post antibiotic course via [facility] presents to ER with complaints of fev er, nausea and fatigue since yesterday. Patient states that she did have fever yesterday and today was feeling very nauseated. Patient called her primary care physician recommended to go to ER. Otherwise patient denied any complaints of chest pain shortness of breath or abdominal pain. No diarrhea. No cough or sputum production. Denies any dysuria or hematuria. Chest x-ray showed new no new suspicious acute pulmonary process. EKG showed sinus tachycardia Laboratory data showed WBC 15.2, hemoglobin 13.6 and blood sugar 248, lactic acid 3.6, CRP 22 UA showed cloudy with 1+ protein 2+ glucose and moderate blood. Leukocyte esterase negative. Influenza a and B and coronavirus PCR not detected. 01/31/2021 Patient is currently resting in the bed comfortably. Awake alert and oriented x3. Patient does have nausea but is controlled with symptomatic management. Lactic acidosis resolved and leukocytosis resolved as well without any antibiotics. Cultures have been negative so far. Blood cultures negative. Laboratory data reviewed. Blood sugar is better controlled. Patient is being discharged home and follow-up as an outpatient. Discharge medications reconciliation was done. PHYSICAL EXAMINATION: Patient is lying in the bed comfortably, no acute distress, awake alert and oriented.. HEENT: Normocephalic. Neck is supple. Pupils reactive. Nostrils clear. Oral cavity is moist. Ears reveal no drainage. Neck reveals no JVD, carotid bruits, or thyromegaly. CHEST EXAMINATION: Trachea is central. Symmetrical expansion. Lung kebede clear to auscultation and percussion. CARDIAC: Normal S1, S2 with no gallops. No murmurs ABDOMEN: Soft. Bowel sounds normal. No organomegaly. No abdominal bruits. Extremities: reveal no edema. No clubbing or cyanosis Neurologically awake, alert, oriented x3 with well-coordinated movements. No focal deficits noted Skin: No rash or skin lesions. Psychiatric: Coperative. Nonsuicidal Musculoskeletal: No joint swelling or deformity. Normal range of motion. Discharge vitals reviewed. Patient Condition at Discharge: Stable Plan - Discharge Summary Discharge Rx Participant: Yes New Discharge Prescriptions: Continue tiZANidine [Zanaflex] 4 mg PO BID@0900,1500 Levothyroxine Sodium [Synthroid] 100 mcg PO DAILY modafiniL [Provigil] 200 mg PO DAILY tab traMADol HCL [Ultram] 50 mg PO BID PRN PRN Reason: Mild To Moderate Pain Methenamine Hippurate 1 gm PO BID Mirabegron [Myrbetriq] 25 mg PO DAILY Insulin Aspart [NovoLOG Flexpen] See Protocol SQ ACHS Ergocalciferol [Vitamin D2 (DRISDOL)] 50,000 unit PO TAYLOR busPIRone HCL [Buspar] 30 mg PO BID 28 Days tab Fenofibrate [Lofibra] 160 mg PO HS tab Gabapentin [Neurontin] 400 mg PO TID cap Metoprolol Succinate (ER) [Toprol XL] 50 mg PO DAILY tab.er.24h Trimethoprim [Trimpex] 100 mg PO HS tab Rivaroxaban [Xarelto] 20 mg PO HS tab tiZANidine [Zanaflex] 8 mg PO HS tab Ondansetron [Zofran] 8 mg PO Q6H PRN tab PRN Reason: Nausea Acetaminophen Tab [Tylenol] 650 mg PO Q6H PRN PRN Reason: Fever And/ Or Pain Prochlorperazine Suppository [Compazine] 25 mg RECTAL Q8H PRN PRN Reason: Nausea Promethazine [Phenergan] 25 mg PO Q6H PRN PRN Reason: Nausea [place] Carbonate 900 mg PO HS Levothyroxine Sodium [Synthroid] 125 mcg PO MOTUWETH Albuterol Inhaler [Ventolin Hfa Inhaler] 1 puff INHALATION RT-Q4H PRN PRN Reason: Shortness Of Breath Dicyclomine [Bentyl] 20 mg PO Q8H PRN PRN Reason: Dyspepsia Clonidine Er 0.1mg 0.1 mg PO BID Butalbital/Aspirin/Caffeine [Avxyfb-Jjduigl-Gvmpducn 50-325-40 mg] 1 tab PO BID PRN PRN Reason: Migraine Headache Dexlansoprazole [Dexilant] 60 mg PO DAILY Ferrous Sulfate [Iron (65 MG Elemental)] 325 mg PO DAILY Galcanezumab-Gnlm [Emgality Pen] 120 mg SQ Q30D Insulin Glargine,Hum.rec.anlog [Lantus Solostar] 50 unit SQ DAILY Linaclotide [Linzess] 145 mcg PO DAILY PRN PRN Reason: Constipation OR IBS Meloxicam [Mobic] 15 mg PO DAILY Methylphenidate HCl [Ritalin] 5 mg PO BID Rizatriptan Benzoate [Rizatriptan] 5 mg PO BID PRN PRN Reason: Migraine Headache Sodium Chloride 0.9% Iv 500 ml IV SUMOWEFR Ascorbic Acid [Vitamin C] 1,000 mg PO DAILY hydrOXYzine pamoate [Vistaril] 50 - 100 mg PO HS Metoclopramide HCl [Reglan] 10 mg PO ACHS Discharge Medication List tiZANidine [Zanaflex] 4 mg PO BID@0900,1500 12/04/18 [History] Levothyroxine Sodium [Synthroid] 100 mcg PO DAILY 01/16/19 [History] modafiniL [Provigil] 200 mg PO DAILY tab 03/07/19 [Rx] traMADol HCL [Ultram] 50 mg PO BID PRN 06/28/19 [History] Methenamine Hippurate 1 gm PO BID 07/12/19 [History] Ergocalciferol [Vitamin D2 (DRISDOL)] 50,000 unit PO TAYLOR 10/08/19 [History] Insulin Aspart [NovoLOG Flexpen] See Protocol SQ ACHS 10/08/19 [History] Mirabegron [Myrbetriq] 25 mg PO DAILY 10/08/19 [History] Fenofibrate [Lofibra] 160 mg PO HS tab 10/17/19 [Rx] Gabapentin [Neurontin] 400 mg PO TID cap 10/17/19 [Rx] Metoprolol Succinate (ER) [Toprol XL] 50 mg PO DAILY tab.er.24h 10/17/19 [Rx] Ondansetron [Zofran] 8 mg PO Q6H PRN tab 10/17/19 [Rx] Rivaroxaban [Xarelto] 20 mg PO HS tab 10/17/19 [Rx] Trimethoprim [Trimpex] 100 mg PO HS tab 10/17/19 [Rx] busPIRone HCL [Buspar] 30 mg PO BID 28 Days tab 10/17/19 [Rx] tiZANidine [Zanaflex] 8 mg PO HS tab 10/17/19 [Rx] Acetaminophen Tab [Tylenol] 650 mg PO Q6H PRN 11/29/19 [History] [place] Carbonate 900 mg PO HS 11/29/19 [History] Prochlorperazine Suppository [Compazine] 25 mg RECTAL Q8H PRN 11/29/19 [History] Promethazine [Phenergan] 25 mg PO Q6H PRN 11/30/19 [History] Levothyroxine Sodium [Synthroid] 125 mcg PO MOTUWETH 12/28/19 [History] Albuterol Inhaler [Ventolin Hfa Inhaler] 1 puff INHALATION RT-Q4H PRN 09/19/20 [History] Ascorbic Acid [Vitamin C] 1,000 mg PO DAILY 09/19/20 [History] Butalbital/Aspirin/Caffeine [Cseuns-Owbiwkg-Uyphoyxf 50-325-40 mg] 1 tab PO BID PRN 09/19/20 [History] Clonidine Er 0.1mg 0.1 mg PO BID 09/19/20 [History] Dexlansoprazole [Dexilant] 60 mg PO DAILY 09/19/20 [History] Dicyclomine [Bentyl] 20 mg PO Q8H PRN 09/19/20 [History] Ferrous Sulfate [Iron (65 MG Elemental)] 325 mg PO DAILY 09/19/20 [History] Galcanezumab-Gnlm [Emgality Pen] 120 mg SQ Q30D 09/19/20 [History] Insulin Glargine,Hum.rec.anlog [Lantus Solostar] 50 unit SQ DAILY 09/19/20 [History] Linaclotide [Linzess] 145 mcg PO DAILY PRN 09/19/20 [History] Meloxicam [Mobic] 15 mg PO DAILY 09/19/20 [History] Methylphenidate HCl [Ritalin] 5 mg PO BID 09/19/20 [History] Rizatriptan Benzoate [Rizatriptan] 5 mg PO BID PRN 09/19/20 [History] Sodium Chloride 0.9% Iv 500 ml IV SUMOWEFR 09/19/20 [History] Metoclopramide HCl [Reglan] 10 mg PO ACHS 01/03/21 [History] hydrOXYzine pamoate [Vistaril] 50 - 100 mg PO HS 01/03/21 [History] Follow up Appointment(s)/Referral(s): Julissa Montano III, MD [Primary Care Provider] - 1-2 days Patient Instructions/Handouts: Lactic Acidosis (GEN) Discharge Disposition: HOME SELF-CARE
== END 2021-01-31 12:43 | disposition home or self-care (01) | DRG 641 ==
LOC: EC 19:53 → 6NMEDSUR 23:55 → OBSVTOIN 01-30 11:18
PROVIDERS: ADMIT Hospitalist; ATTEND Hospitalist
DX: E87.2 Acidosis (principal); D68.62 Lupus anticoagulant syndrome; E88.40 Mitochondrial metabolism disorder, unspecified; Q21.1 Atrial septal defect; E11.42 Type 2 diabetes mellitus with diabetic polyneuropathy; E11.43 Type 2 diabetes mellitus with diabetic autonomic (poly)neuropathy; D72.829 Elevated white blood cell count, unspecified; D35.2 Benign neoplasm of pituitary gland; E11.65 Type 2 diabetes mellitus with hyperglycemia; F31.9 Bipolar disorder, unspecified; Z79.4 Long term (current) use of insulin; G47.419 Narcolepsy without cataplexy; G90.1 Familial dysautonomia [Riley-Day]; Z20.822 Contact with and (suspected) exposure to COVID-19; G43.909 Migraine, unspecified, not intractable, without status migrainosus; K31.84 Gastroparesis; E06.3 Autoimmune thyroiditis; N31.9 Neuromuscular dysfunction of bladder, unspecified; I89.0 Lymphedema, not elsewhere classified; N39.3 Stress incontinence (female) (male); E28.2 Polycystic ovarian syndrome; Z79.1 Long term (current) use of non-steroidal anti-inflammatories (NSAID); Z79.01 Long term (current) use of anticoagulants; Z79.890 Hormone replacement therapy; Z79.899 Other long term (current) drug therapy; Z91.5 Personal history of self-harm; Z86.19 Personal history of other infectious and parasitic diseases; Z86.718 Personal history of other venous thrombosis and embolism; Z86.73 Personal history of transient ischemic attack (TIA), and cerebral infarction without residual deficits; Z86.14 Personal history of Methicillin resistant Staphylococcus aureus infection; Z82.49 Family history of ischemic heart disease and other diseases of the circulatory system; Z83.3 Family history of diabetes mellitus; Z83.49 Family history of other endocrine, nutritional and metabolic diseases
CPT/HCPCS: 36415; 71046; 80048; 80053; 81001; 83605; 85025; 86140; 87040; 87502; 87635; 93005; 94640; 96361; 96374; 99284; 99285

== ENCOUNTER → 2021-03-09 | Outpatient (CLI) | payer MEDICARE, OTHER ==
--- NOTE | 2021-03-09 14:36 | US ---
EXAMINATION TYPE: US venous doppler duplex UE RT DATE OF EXAM: 03/09/2021 COMPARISON: NONE CLINICAL HISTORY: 40-year-old female I82.C19 Acute embolism and thrombosis of unspecified. Pt has imp lanted port within right IJV for antibiotic and IV fluid use x 18 months/ pt states recent problems w ith accessing the port/ port "not working" SIDE PERFORMED: Right Please note: Per Dr. Mendez's request only right IJV to be evaluated TECHNIQUE: Grayscale, color doppler, spectral doppler imaging performed targeting the right internal jugular vein. FINDINGS: Right: Right IJV appeared patent, blood flow visualized around port catheter IMPRESSION: Per physician request, only the right IJV was assessed. The injection port catheter is visualized wit hin the IJV and the vessel remains patent.
== END | disposition home or self-care (01) ==
LOC: RADUSWWP 13:27
PROVIDERS: ATTEND Surgery Plastic and Reconstructive Surgery
DX: I82.C19 Acute embolism and thrombosis of unspecified internal jugular vein (principal)

== ENCOUNTER → 2021-03-10 | Day surgery (SDC) | payer MEDICARE, OTHER ==
[2021-03-04 15:38] VITALS: BMI 44.9
[~2021-03-10] MED LIST changes: -DOBUTamine DRIP for NUC MED 500 MG in DEXTROSE/WATER 1 250ML.BAG IV ONE; +IOPAMIDOL-250 50ML BTL IV ONE
[2021-03-10 11:57] LABS: Glucose,Whole Blood 141 mg/dL (75-99)
[2021-03-10 11:58] VITALS: BP 148/83; PULSE 85; RESP 18; TEMP 99.1
--- NOTE | 2021-03-10 16:42 | IR ---
Port-A-Cath check HISTORY: Malfunctioning Port-A-Cath Radiology nurse access the port. Gentle hand-injection of contrast material was performed under fluoroscopic observation The port is patent. There is no evident leak. Distal tip is within the right atrium. Progress 0.3 min utes fluoroscopy time, 101 intraoperative images document the procedure impression: Patent Port-A-Cath.
== END ==
LOC: CATHCVL 11:29
PROVIDERS: ATTEND Radiology Diagnostic Radiology
DX: Z45.2 Encounter for adjustment and management of vascular access device (principal); G90.1 Familial dysautonomia [Riley-Day]; J45.909 Unspecified asthma, uncomplicated; D64.9 Anemia, unspecified; I10 Essential (primary) hypertension; E78.5 Hyperlipidemia, unspecified; E03.9 Hypothyroidism, unspecified; K31.84 Gastroparesis; Z86.73 Personal history of transient ischemic attack (TIA), and cerebral infarction without residual deficits
CPT/HCPCS: 36598; 81025; 87635; Q9966

== ENCOUNTER → 2021-05-28 | Outpatient (CLI) | payer MEDICARE, OTHER | END | disposition home or self-care (01) ==

== ENCOUNTER 2021-06-01 15:11 | Inpatient (IN) | payer MEDICARE, OTHER ==
[2021-06-01] MEDS ORDERED: MORPHINE SULFATE 4 MG/ML SYRINGE IV STA (15:26)
--- NOTE | 2021-06-01 15:29 | ED ---
General Adult HPI - General Chief complaint: Abdominal Pain Stated complaint: ABd pain Time Seen by Provider: 06/01/21 15:17 Source: patient Mode of arrival: wheelchair Limitations: no limitations - History of Present Illness Initial comments: Dictation was produced using CLEAR dictation software. please excuse any grammatical, word or spelling errors. Chief Complaint: 40-year-old female past medical history of mitochondrial diseas e, diabetes, DVTs, CVAs presents to the emergency Department with right upper quadrant abdominal pain. History of Present Illness: 40-year-old female with multiple comorbidities presents to the emergency department for right upper quadrant pain. Patient reports that 4 days ago she had abdominal ultrasound ordered by her primary care doctor for right upper quadrant abdominal pain it was found that patient had a hydropic gallbladder with sludge. There is no other abnormal findings. Patient denies any constitutional symptoms. She does complain of nausea. She states her pain is treated with any sort of oral intake. Denies any diarrhea. Patient has a port placed in her right chest for IV hydration and difficult IV access. She was prescribed Ultram after the ultrasound was performed and patient was told to follow up with general surgery next month. The ROS documented in this emergency department record has been reviewed and confirmed by me. Those systems with pertinent positive or negative responses have been documented in the HPI. All other systems are other negative and/or n oncontributory. PHYSICAL EXAM: General Impression: Alert and oriented x3, not in acute distress HEENT: Normocephalic atraumatic, extra-ocular movements intact, pupils equal and reactive to light bilaterally, mucous membranes moist. Cardiovascular: Heart regular rate and rhythm Chest: Able to complete full sentences, no retractions, no tachypnea Abdomen: abdomen soft, equivocal Harris sign non-distended, no organomegaly Musculoskeletal: Pulses present and equal in all extremities, no peripheral edema Motor: no focal deficits noted Neurological: CN II-XII grossly intact, no focal motor or sensory deficits noted Skin: Intact with no visualized rashes Psych: Normal affect and mood ED course: 40-year-old female presents with abdominal pain that's worsening. She had an abnormal ultrasound performed 4 days ago. Vital signs upon arrival are within acceptable limits. EP gallbladder ultrasound shows no changes from 4 days ago. This showed a large gallbladder but no evidence of acute cholecystitis. Patient reevaluated at bedside and is resting comfortably. She does not feel like she can manage her symptoms at home and is demanding to be admitted to the hospital for pain control. Patient does not want to be admitted to on-call surgeon Dr. Rodriguez. I did speak with Dr. Mendez who patient was initially referred to from her primary care physician's office. Dr. Pedro was agreeable with patient was admitted to medicine with her on consult. - Related Data Home Medications Medication Instructions Recorded Confirmed tiZANidine [Zanaflex] 4 mg PO BID@0900,1500 12/04/18 03/10/21 Levothyroxine Sodium [Synthroid] 100 mcg PO DAILY 01/16/19 03/10/21 traMADol HCL [Ultram] 50 mg PO BID PRN 06/28/19 03/10/21 Methenamine Hippurate 1 gm PO BID 07/12/19 03/10/21 Ergocalciferol [Vitamin D2 50,000 unit PO TAYLOR 10/08/19 03/10/21 (FRIDA)] Insulin Aspart [NovoLOG Flexpen] See Protocol SQ ACHS 10/08/19 03/10/21 Mirabegron [Myrbetriq] 25 mg PO DAILY 10/08/19 03/10/21 Acetaminophen Tab [Tylenol] 650 mg PO Q6H PRN 11/29/19 03/10/21 Anawalt Carbonate 900 mg PO HS 11/29/19 03/10/21 Prochlorperazine Suppository 25 mg RECTAL Q8H PRN 11/29/19 03/10/21 [Compazine] Promethazine [Phenergan] 25 mg PO Q6H PRN 11/30/19 03/10/21 Levothyroxine Sodium [Synthroid] 125 mcg PO MOTUWETH 12/28/19 03/10/21 Albuterol Inhaler [Ventolin Hfa 1 puff INHALATION RT-Q4H PRN 09/19/20 03/10/21 Inhaler] Ascorbic Acid [Vitamin C] 1,000 mg PO DAILY 09/19/20 03/10/21 Butalbital/Aspirin/Caffeine 1 tab PO BID PRN 09/19/20 03/10/21 [Zkzzri-Nkhzpot-Tjzwxlno 50-325-40 mg] Clonidine Er 0.1mg 0.1 mg PO BID 09/19/20 03/10/21 Dexlansoprazole [Dexilant] 60 mg PO DAILY 09/19/20 03/10/21 Dicyclomine [Bentyl] 20 mg PO Q8H PRN 09/19/20 03/10/21 Ferrous Sulfate [Iron (65 MG 325 mg PO DAILY 09/19/20 03/10/21 Elemental)] Galcanezumab-Gnlm [Emgality Pen] 120 mg SQ Q30D 09/19/20 03/10/21 Insulin Glargine,Hum.rec.anlog 78 unit SQ DAILY 09/19/20 03/10/21 [Lantus Solostar] Linaclotide [Linzess] 145 mcg PO DAILY PRN 09/19/20 03/10/21 Meloxicam [Mobic] 15 mg PO DAILY 09/19/20 03/10/21 Methylphenidate HCl [Ritalin] 5 mg PO BID 09/19/20 03/10/21 Rizatriptan Benzoate [Rizatriptan] 5 mg PO BID PRN 09/19/20 03/10/21 Sodium Chloride 0.9% Iv 500 ml IV DAILY 09/19/20 03/10/21 Metoclopramide HCl [Reglan] 10 mg PO ACHS 01/03/21 03/10/21 hydrOXYzine pamoate [Vistaril] 50 - 100 mg PO HS 01/03/21 03/10/21 Previous Rx's Medication Instructions Recorded modafiniL [Provigil] 200 mg PO DAILY tab 03/07/19 Fenofibrate [Lofibra] 160 mg PO HS tab 10/17/19 Gabapentin [Neurontin] 400 mg PO TID cap 10/17/19 Metoprolol Succinate (ER) [Toprol 50 mg PO DAILY tab.er.24h 10/17/19 XL] Ondansetron [Zofran] 8 mg PO Q6H PRN tab 10/17/19 Rivaroxaban [Xarelto] 20 mg PO HS tab 10/17/19 Trimethoprim [Trimpex] 100 mg PO HS tab 10/17/19 busPIRone HCL [Buspar] 30 mg PO BID 28 Days tab 10/17/19 tiZANidine [Zanaflex] 8 mg PO HS tab 10/17/19 Allergies Allergy/AdvReac Type Severity Reaction Status Date / Time peanut oil Allergy Severe Nausea & Verified 06/01/21 15:14 Vomiting,itching barium sulfate Allergy Anaphylaxis Verified 06/01/21 15:14 doxepin [Doxepin] Allergy Anaphylaxis Verified 06/01/21 15:14 ephedrine Allergy Chest Verified 06/01/21 15:14 Pain/tachycardia ertapenem [From Invanz] Allergy Rash/Hives Verified 06/01/21 15:14 influenza virus vaccine, Allergy severe Verified 06/01/21 15:14 specific swelling [Influenza Virus and hives Vacc,Specific] peanut Allergy Nausea & Verified 06/01/21 15:14 Vomiting/itching pseudoephedrine Allergy Chest Pain Verified 06/01/21 15:14 doxycycline AdvReac Nausea & Verified 06/01/21 15:14 Vomiting & Diarrhea Pertussis Vaccines AdvReac fever/seizu Verified 06/01/21 15:14 re pseudoephedrine HCl AdvReac chest Verified 06/01/21 15:14 [From Sudafed] pain/tachycardia sulfamethoxazole AdvReac Nausea & Verified 06/01/21 15:14 [From Bactrim] Vomiting trimethoprim [From Bactrim] AdvReac Nausea & Verified 06/01/21 15:14 Vomiting Review of Systems ROS Statement: Those systems with pertinent positive or pertinent negative responses have been documented in the HPI. ROS Other: All systems not noted in ROS Statement are negative. Past Medical History Past Medical History: CVA/TIA, Diabetes Mellitus, Deep Vein Thrombosis (DVT), Neurologic Disorder, Syncope, Thyroid Disorder Additional Past Medical History / Comment(s): port currently not working, STROKE LIKE EPISODE D/T MITOCHRONDIAL DISEASE HAD WORK UP DONE AT [facility]. Dysautonomia, idiopathic intracranial HTN, lupus/LUPUS ANTICOAGULANTS, ana maria's disease, lymphedema Lt arm d/t DVTs, v-tach, pituitary microadenoma. patent foramen ovale, narcolepsy, gastropareis, HX orthostatic hypotension/syncope, migraines with hemiplegia, pernicious anemia, polycystic ovarian syndrome, neuropathy bilateral legs/feet - mild, uti's. neurogenic bladder, stress incontinence, uses wheelchair, able to transfer and walk few steps History of Any Multi-Drug Resistant Organisms: ESBL, MRSA Date of last positivie culture/infection: 03/09/17 MRSA/ 05/17/18 ESBL MDRO Source:: MRSA LEFT ARM,/ESBL URINE ECOLI Past Surgical History: Uterine Ablation Additional Past Surgical History / Comment(s): colonscopy/egd, angie, PORT-A -CATH INSERTION, Past Anesthesia/Blood Transfusion Reactions: Previous Problems w/ Anesthesia Additional Past Anesthesia/Blood Transfusion Reaction / Comment(s): patient states "It takes a lot of anesthesia for my body to react". Pt has received blood in past without reaction. Past Psychological History: Bipolar, Depression Smoking Status: Never smoker Past Alcohol Use History: None Reported Past Drug Use History: None Reported - Past Family History Brother(s) Family Medical History: Diabetes Mellitus, Hyperlipidemia, Hypertension Additional Family Medical History / Comment(s): Patient states she has 1 brother with no major medical problems. Father Family Medical History: Diabetes Mellitus, Hyperlipidemia, Hypertension Additional Family Medical History / Comment(s): DAD IS 70 YEARS OLD. Patient states she does not have any contact with her father and does not know his medical history. Mother Family Medical History: CVA/TIA, Deep Vein Thrombosis (DVT) Additional Family Medical History / Comment(s): antiphospholipid antibody syndrome lupas dementia General Exam Limitations: no limitations Course Vital Signs 06/01/21 15:12 Temperature 98.0 F Pulse Rate 94 Respiratory 20 Rate Blood Pressure 159/89 O2 Sat by Pulse 99 Oximetry Medical Decision Making - Lab Data Result diagrams: 06/01/21 15:35 06/01/21 15:35 Lab Results 06/01/21 06/01/21 06/01/21 Range/Units 15:35 15:35 15:35 WBC 8.6 (3.8-10.6) k/uL RBC 4.58 (3.80-5.40) m/uL Hgb 13.1 (11.4-16.0) gm/dL Hct 40.0 (34.0-46.0) % MCV 87.3 (80.0-100.0) fL MCH 28.5 (25.0-35.0) pg MCHC 32.7 (31.0-37.0) g/dL RDW 13.5 (11.5-15.5) % Plt Count 396 (150-450) k/uL MPV 6.7 Neutrophils % 69 % Lymphocytes % 19 % Monocytes % 5 % Eosinophils % 4 % Basophils % 1 % Neutrophils # 5.9 (1.3-7.7) k/uL Lymphocytes # 1.7 (1.0-4.8) k/uL Monocytes # 0.4 (0-1.0) k/uL Eosinophils # 0.3 (0-0.7) k/uL Basophils # 0.1 (0-0.2) k/uL Sodium 141 (137-145) mmol/L Potassium 4.1 (3.5-5.1) mmol/L Chloride 107 (98-107) mmol/L Carbon Dioxide 24 (22-30) mmol/L Anion Gap 10 mmol/L BUN 12 (7-17) mg/dL Creatinine 0.66 (0.52-1.04) mg/dL Est GFR (CKD-EPI)AfAm >90 (>60 ml/min/1.73 sqM) Est GFR (CKD-EPI)NonAf >90 (>60 ml/min/1.73 sqM) Glucose 109 H (74-99) mg/dL Calcium 9.7 (8.4-10.2) mg/dL Total Bilirubin 0.2 (0.2-1.3) mg/dL AST 33 (14-36) U/L ALT 23 (4-34) U/L Alkaline Phosphatase 59 (38-126) U/L Total Protein 7.1 (6.3-8.2) g/dL Albumin 4.5 (3.5-5.0) g/dL Lipase 62 (23-300) U/L Urine HCG, Qual Not Detected (Not Detectd) Disposition Clinical Impression: Abdominal pain Disposition: ADMITTED IP TO THIS [facility] Condition: Fair Referrals: Julissa Montano III, MD [Primary Care Provider] - 1-2 days
[2021-06-01 15:53] LABS: Basophils # (A) 0.1 k/uL (0-0.2); Basophils % (A) 1 %; Eosinophils # (A) 0.3 k/uL (0-0.7); Eosinophils % (A) 4 %; HGB 13.1 gm/dL (11.4-16.0); Lymphocytes # (A) 1.7 k/uL (1.0-4.8); Lymphocytes % (A) 19 %; MCH 28.5 pg (25.0-35.0); MCHC 32.7 g/dL (31.0-37.0); MCV 87.3 fL (80.0-100.0); Mean Platelet Volume 6.7; Monocytes # (A) 0.4 k/uL (0-1.0); Monocytes % (A) 5 %; Neutrophils # (A) 5.9 k/uL (1.3-7.7); Neutrophils % (A) 69 %; Platelet Count 396 k/uL (150-450); RBC 4.58 m/uL (3.80-5.40); RDW 13.5 % (11.5-15.5); WBC 8.6 k/uL (3.8-10.6)
[2021-06-01 16:26] LABS: ALT 23 U/L (4-34); AST 33 U/L (14-36); African American GFR (CKD) >90 (>60 ml/min/1.73 sqM); Albumin 4.5 g/dL (3.5-5.0); Alkaline Phosphatase 59 U/L (38-126); Anion Gap 10 mmol/L; Blood Urea Nitrogen 12 mg/dL (7-17); Calcium 9.7 mg/dL (8.4-10.2); Carbon Dioxide 24 mmol/L (22-30); Chloride 107 mmol/L (98-107); Glucose 109 mg/dL (74-99); Lipase 62 U/L (23-300); Non-African American GFR(CKD) >90 (>60 ml/min/1.73 sqM); Potassium 4.1 mmol/L (3.5-5.1); Sodium 141 mmol/L (137-145); Total Bilirubin 0.2 mg/dL (0.2-1.3); Total Protein 7.1 g/dL (6.3-8.2)
--- NOTE | 2021-06-01 16:55 | US ---
EXAMINATION TYPE: US gallbladder DATE OF EXAM: 06/01/2021 COMPARISON: US, CLINICAL HISTORY: gallbladder. RUQ pain, epigastric pain radiating to back,with and without food x 1 week; diabetic; mitochondrial disease; last had coffee with dream 4 hours ago. EXAM MEASUREMENTS: Liver Length: 23.2 cm Gallbladder Wall: 0.2 cm CBD: 0.4 cm Right Kidney: 11.7 x 6.8 x 4.5 cm Pancreas: hyperechoic Liver: enlarged, fatty as is hyperechoic to right renal cortex Gallbladder: size is at upper limits of normal Evidence for sonographic Harris's sign: yes CBD: wnl Right Kidney: No hydronephrosis or masses seen IMPRESSION: Large gallbladder. No gallstones or dilated ducts. Fatty infiltration of the liver. Hepatomegaly.
[2021-06-01] MEDS ORDERED: ACETAMINOPHEN TAB 325 MG TAB PO PRN (17:29)
[2021-06-01] MEDS ORDERED: NALOXONE 0.4 MG/ML 1 ML VIAL IV PRN (17:29)
--- NOTE | 2021-06-01 19:45 | HP ---
HISTORY AND PHYSICAL DATE OF SERVICE: 06/01/2021. CHIEF COMPLAINT: Abdominal pain. HISTORY OF PRESENT ILLNESS: This 40-year-old woman with a past medical history of multiple medical problems including history of CVA, TIA, diabetes, DVT, history of syncope, hypothyroidism being followed by Dr. Montano in the outpatient setting, has been complaining of abdominal pain for the last several days. The pain is mainly in the right upper quadrant. The patient had extensive workup as an outpatient. Dr. Montano's office performed an abdominal ultrasound on May 28, 2021, which showed hepatomegaly, hepatic steatosis. Gallbladder distended suggestive of hydropic gallbladder, common bile duct was found to be within normal limits. Because of increased symptoms patient came to the emergency room and was admitted for further evaluation and treatment at this time. Gallbladder ultrasound was repeated which showed large gallbladder, dilated ducts and hepatomegaly also noted. There is no history of fever, rigors, chills at this time. PAST MEDICAL HISTORY: History of CVA, TIA, diabetes, DVT, history of syncope, hypothyroidism. MEDICATIONS: Prior to admission include home medications reviewed they were not finalized, include Ultram, Zanaflex, Provigil, Restoril, BuSpar, rizatriptan, Xarelto, Myrbetriq Toprol- XL, Reglan, Ritalin, Mobic, Linzess, Synthroid, vitamin D. Doses reviewed. ALLERGIES: Peanuts, barium, doxepin, influenza pseudoephedrine, doxycycline, sulfa. Details are reviewed. FAMILY HISTORY: History of diabetes, hypertension, hyperlipidemia. SOCIAL HISTORY: No history of smoking. No alcohol intake. REVIEW OF SYSTEMS: ENT: No diminished vision. CARDIOVASCULAR SYSTEM: As mentioned earlier. RESPIRATORY: As mentioned earlier. GI: As mentioned earlier. : No dysuria. NERVOUS SYSTEM: No numbness or weakness. ALLERGY: No asthma or hayfever. MUSCULOSKELETAL: As mentioned earlier. HEMATOLOGY: No anemia. ENDOCRINE: As mentioned earlier. CONSTITUTIONAL: As mentioned earlier. DERMATOLOGY: Negative. RHEUMATOLOGY: Negative. PSYCHIATRY: As mentioned earlier. PHYSICAL EXAMINATION: Pulse 94, blood pressure 159/89, respirations 20, temperature 98 degrees, pulse ox 99 percent room air. HEENT: Conjunctivae normal. LUNGS: Breath sounds clear at the bases. No rhonchi no crackles. ABDOMEN: Soft, obese, nontender. No mass palpable. LEGS: No edema, no swelling. NERVOUS SYSTEM: Higher functions as mentioned earlier. Moves all 4 limbs. No focal motor deficits. LYMPHATICS: No lymph nodes palpable in the neck, axillae or groin. SKIN: No ulcer. JOINTS: No active deforming arthropathy. LABS: CBC within normal limits. Glucose 109. Ultrasound is noted. ASSESSMENT: 1. Acute abdominal pain with acute cholecystitis with hydropic gallbladder, possibly. 2. History of lactic acidosis and leukocytosis. 3. Recent history of sepsis and bacteremia. 4. History of lupus, on lifelong anticoagulation. 5. History of CVA and TIA. 6. Diabetes type 2. 7. History of deep vein thrombosis. 8. History of syncope. 9. History of mitochondrial disease worked up at [facility]. 10.History of dysautonomia. 11.History of idiopathic intracranial hypertension. 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 13.History of DVTs. 14.History of ventricular tachycardia. 15.History of pituitary microadenoma. 16.History of narcolepsy. 17.History of gastroparesis. 18.History of pernicious anemia. 19.History of polycystic ovarian disorder. 20.History of bilateral peripheral neuropathy. 21.History UTIs. 22.History of stress incontinence. 23.History ESBL. 24.History of MRSA. 25.History of bipolar, depression. 26.Obesity with body mass. 27.FULL CODE. RECOMMENDATIONS AND DISCUSSION: This 40-year-old woman who presented with multiple medical issues, we will monitor the patient closely, continue the current management and symptomatic treatment. I recommend surgical evaluation and possible surgery. Otherwise, will resume the home medications once it is confirmed. DVT prophylaxis. Symptomatic treatment. Prognosis guarded because of multiple complex medical issues. Further recommendations to follow. LFTs are within normal limits. MMODL / IJN: [id number] / MTDD
[2021-06-01] MEDS: SODIUM CHLORIDE 0.9% 1,000 ML IV SCH (19:50)
[2021-06-01 20:23] LABS: Glucose,Whole Blood 108 mg/dL (75-99)
[2021-06-01] MEDS ORDERED: NON FORMULARY DRUG (Butalbital/Aspirin/Caffeine [Butalb-Aspirin-Caffeine 50-325-40 Mg] 1 E PO PRN (21:44)
[2021-06-01] MEDS ORDERED: MELATONIN 5 MG TABLET PO PRN (21:46)
[2021-06-01] MEDS ORDERED: NON FORMULARY DRUG (Linaclotide [Linzess] 145 MCG Capsule) PO PRN (21:46)
[2021-06-01] MEDS ORDERED: SUMAtriptan succinate 50 MG TAB PO PRN (21:46)
[2021-06-01] MEDS ORDERED: diphenhydrAMINE 25 MG CAP PO PRN (21:46)
[2021-06-01] MEDS ORDERED: MECLIZINE 12.5 MG TAB PO PRN (21:46)
[2021-06-01] MEDS ORDERED: ONDANSETRON 4 MG TAB PO PRN (21:46)
[2021-06-01] MEDS: MORPHINE SULFATE 4 MG/ML SYRINGE IV PRN (21:55)
[2021-06-01] MEDS ORDERED: RIVAROXABAN 20 MG TAB PO SCH (22:00)
[2021-06-01] MEDS ORDERED: DICYCLOMINE 20 MG TAB PO SCH (22:00)
[2021-06-01 22:36] LABS: Appearance,Urine Clear (Clear); Bilirubin,Urine Negative (Negative); Blood,Urine Negative (Negative); Color,Urine Yellow; Glucose,Urine (UA) Negative (Negative); Ketones,Urine Negative (Negative); Leukocyte Esterase,Urine Negative (Negative); Nitrite,Urine Negative (Negative); PH, Urine 5.5 (5.0-8.0); Protein,Urine Negative (Negative); Specific Gravity,Urine 1.019 (1.001-1.035); Urobilinogen,Urine <2.0 mg/dL (<2.0)
[2021-06-01] MEDS: GABAPENTIN 400 MG CAP PO SCH (22:55)
[2021-06-01] MEDS: busPIRone HCl 10 MG TAB PO SCH (22:57)
[2021-06-01] MEDS: NON FORMULARY DRUG (Brexpiprazole [Rexulti] 0.5 MG Tablet) PO SCH (23:00)
[2021-06-02] MEDS: MORPHINE SULFATE 4 MG/ML SYRINGE IV PRN ×4 (04:13→22:04)
[2021-06-02] MEDS: SODIUM CHLORIDE 0.9% 1,000 ML IV SCH ×3 (04:16→21:15)
[2021-06-02 07:03] LABS: Glucose,Whole Blood 113 mg/dL (75-99)
[2021-06-02] MEDS ORDERED: DICYCLOMINE 20 MG TAB PO PRN (08:46)
[2021-06-02] MEDS: NYSTATIN 100,000UNIT/GM CREAM 30 GM TUBE TOPICAL SCH ×2 (08:47→20:45)
[2021-06-02] MEDS: TRIAMCINOLONE 0.1% CREAM 80 GM TUBE TOPICAL SCH ×2 (08:47→20:45)
[2021-06-02] MEDS ORDERED: MAGNESIUM GLYCINATE 665 MG PO SCH (09:00)
[2021-06-02] MEDS: FERROUS SULFATE 325 MG TAB PO SCH (09:01)
[2021-06-02] MEDS: busPIRone HCl 10 MG TAB PO SCH ×2 (09:01→20:42)
[2021-06-02] MEDS: EZETIMIBE 10 MG TAB PO SCH (09:02)
[2021-06-02] MEDS: METOCLOPRAMIDE 10 MG TAB PO SCH ×4 (09:02→20:43)
[2021-06-02] MEDS: PANTOPRAZOLE 40 MG TABLET PO SCH (09:02)
[2021-06-02] MEDS: ASCORBIC ACID 500 MG TAB PO SCH (09:02)
[2021-06-02] MEDS: CYANOCOBALAMIN 500 MCG TAB PO SCH (09:02)
[2021-06-02] MEDS: LEVOTHYROXINE 100 MCG TAB PO SCH (09:02)
[2021-06-02] MEDS: GABAPENTIN 400 MG CAP PO SCH ×3 (09:02→20:44)
[2021-06-02] MEDS: MELOXICAM 7.5 MG TAB PO SCH (09:03)
[2021-06-02] MEDS: METOPROLOL SUCCINATE (ER) 50 MG TAB.ER.24H PO SCH (09:03)
[2021-06-02] MEDS: FLUTICASONE 50MCG/SPRAY NASAL 16GM EA NOSTRIL SCH (09:03)
[2021-06-02 09:07] LABS: Basophils # (A) 0.06 X 10*3/uL (0.00-0.10); Basophils % (A) 0.6 %; Eosinophils # (A) 0.32 X 10*3/uL (0.04-0.35); Eosinophils % (A) 3.4 %; HCT 36.7 % (37.2-46.3); HGB 11.5 g/dL (12.0-15.0); Lymphocytes # (A) 2.48 X 10*3/uL (0.90-5.00); Lymphocytes % (A) 26.3 %; MCH 28.8 pg (27.0-32.0); MCHC 31.3 g/dL (32.0-37.0); MCV 91.8 fL (80.0-97.0); Mean Platelet Volume 9.4 fL (9.5-12.2); Monocytes # (A) 0.77 X 10*3/uL (0.20-1.00); Monocytes % (A) 8.2 %; Neutrophils # (A) 5.74 X 10*3/uL (1.80-7.70); Neutrophils % (A) 60.9 %; Platelet Count 340 X 10*3/uL (140-440); RDW 13.2 % (11.5-14.5); WBC 9.43 X 10*3/uL (4.50-10.00)
[2021-06-02] MEDS: CLONIDINE 0.1 MG PO SCH ×2 (09:10→20:44)
[2021-06-02] MEDS: NON FORMULARY DRUG (Methenamine Hippurate [Methenamine Hippurate] 1 GM Tablet) PO SCH ×2 (09:10→20:44)
[2021-06-02] MEDS: NON FORMULARY DRUG (Dextroamphetamine/Amphetamine [Adderall] 10 MG Tablet) PO SCH ×2 (09:10→20:44)
[2021-06-02] MEDS: NON FORMULARY DRUG (Mirabegron [Myrbetriq] 25 MG Tab.Er.24h) PO SCH (09:10)
[2021-06-02 09:32] LABS: African American GFR (CKD) 107.6 (60.0-200.0); Albumin 4.3 g/dL (3.80-4.90); Albumin/Globulin Ratio 2.39 (1.60-3.17); Anion Gap 7.5 mmol/L (4.00-12.00); BUN/Creat Ratio 12.5 Ratio (12.00-20.00); Calcium 8.9 mg/dL (8.7-10.3); Carbon Dioxide 26.5 mmol/L (21.6-31.8); Globulin 1.8 g/dL (1.6-3.3); Non-African American GFR(CKD) 92.9 (60.0-200.0); Potassium 3.9 mmol/L (3.5-5.5); Total Bilirubin 0.3 mg/dL (0.2-1.2); Total Protein 6.1 g/dL (6.2-8.2)
[2021-06-02 12:06] LABS: Glucose,Whole Blood 171 mg/dL (75-99)
--- NOTE | 2021-06-02 13:25 | P.GSCN ---
History of Present Illness Consult date: 06/02/21 History of present illness: CHIEF COMPLAINT: Right upper quadrant abdominal pain HISTORY OF PRESENT ILLNESS: This is a 40-year-old female with an extensive past medical history that includes diabetes mellitus, CVA, patent PFO, arm DVT, lupus, Ana Maria's, mitochondrial disease worked up at [facility]. Patient is anticoagulated with Xarelto. Her last dose of Xarelto was on 05/31/2021. She denies any abdominal surgery history. Patient presents to the hospital with complaints of right upper quadrant abdominal pain for the past 5 days. Patient reports that the pain radiates to her back and pain up into her shoulders. She reports that the pain is worse after eating. She's been nauseated and also having fevers. She's had decreased appetite. She had recently finished a course of Ceftin. She reports that her PCP placed her on the Ceftin for her fevers and due to her history of having a port. Patient has a port for IV fluid hydration. Patient has a significant family history of gallbladder disease include her mother, father and brother. She had an abdominal ultrasound completed and showed large gallbladder. No gallstones or dilated ducts. Fatty infiltration of the liver. Hepatomegaly. Patient's white count LFTs are normal. Patient denies any vomiting or diarrhea. PAST MEDICAL HISTORY: See list. PAST SURGICAL HISTORY: See list. MEDICATIONS: See list. ALLERGIES: See list. SOCIAL HISTORY: No illicit drug use. REVIEW OF SYSTEMS: CONSTITUTIONAL: Denies fever or chills. HEENT: Denies blurred vision, vision changes, or eye pain. Denies hemoptysis ENDOCRINE: Denies heat or cold intolerance. CARDIOVASCULAR: Denies chest pain or pressure. RESPIRATORY: No shortness of breath. GASTROINTESTINAL: Please refer to HPI otherwise unremarkable NEURO: Denies history of seizures. PSYCH: No depression or suicidal ideation HEMATOLOGIC: Denies bleeding disorders. LYMPHATIC: The patient denies any lumps and bumps around the neck. GENITOURINARY: Denies any blood in urine or increased urinary frequency. MUSCULOSKELETAL: Denies myalgias. Denies joint swelling. Denies decreased range of motion beyond patients baseline. SKIN: Denies pruitis. Denies rash. PHYSICAL EXAM: VITAL SIGNS: Reviewed GENERAL: Well-developed in no acute distress. HEENT: No sclera icterus. Extraocular movements grossly intact. Moist buccal mucosa. Head is atraumatic, normocephalic. Hears conversational speech. No nasal drainage. NECK: Supple without lymphadenopathy. CHEST: Non-labored respirations and equal bilateral excursions. CARDIOVASCULAR: Palpable 2+ radial pulses. ABDOMEN: Soft. Nondistended. Right upper quadrant tenderness with palpation MUSCULOSKELETAL: No clubbing or cyanosis. NEUROLOGIC: No focal or lateralizing signs. Cranial nerves II through XII grossly intact. PSYCH: Appropriate affect. Alert and oriented to person, place and time. SKIN: Well perfused. Good skin turgor. LABORATORY DATA: WBC 9.4. 3 hemoglobin 11.5 platelets 340 sodium 140 potassium 3.9 creatinine 0.8 glucose 171 LFTs normal lipase normal Urinalysis negative for infection IMAGING: Abdominal ultrasound as stated above ASSESSMENT: 1. Right upper quadrant abdominal pain with gallbladder ultrasound showing a large gallbladder 2. History of lupus 3. History of CVA 4. Diabetes mellitus type 2 5. History of DVT 6. History of Ana Maria's 7. Significant family history of gallbladder disease PLAN: -HIDA scan ordered for further evaluation of gallbladder function -Keep patient nothing by mouth for HIDA scan and then start low-fat diet -Continue to keep Xarelto on hold in case patient requires any surgical interv ention Thank you for this consultation Physician [employer] Supervisor note has been reviewed by physician. Signing provider agrees with the documented findings, assessment, and plan of care. Past Medical History Past Medical History: CVA/TIA, Diabetes Mellitus, Deep Vein Thrombosis (DVT), Neurologic Disorder, Syncope, Thyroid Disorder Additional Past Medical History / Comment(s): port currently not working, STROKE LIKE EPISODE D/T MITOCHRONDIAL DISEASE HAD WORK UP DONE AT [facility]. Dysautonomia, idiopathic intracranial HTN, lupus/LUPUS ANTICOAGULANTS, ana maria's disease, lymphedema Lt arm d/t DVTs, v-tach, pituitary microadenoma. patent foramen ovale, narcolepsy, gastropareis, HX orthostatic hypotension/syncope, migraines with hemiplegia, pernicious anemia, polycystic ovarian syndrome, neuropathy bilateral legs/feet - mild, uti's. neurogenic bladder, stress incontinence, uses wheelchair, able to transfer and walk few steps History of Any Multi-Drug Resistant Organisms: ESBL, MRSA Year Discovered:: 03/09/17 MRSA/ 05/17/18 ESBL MDRO Source:: MRSA LEFT ARM,/ESBL URINE ECOLI Past Surgical History: Uterine Ablation Additional Past Surgical History / Comment(s): colonscopy/egd, angie, PORT-A -CATH INSERTION, Past Anesthesia/Blood Transfusion Reactions: Previous Problems w/ Anesthesia Additional Past Anesthesia/Blood Transfusion Reaction / Comm: patient states "It takes a lot of anesthesia for my body to react". Pt has received blood in past without reaction. Past Psychological History: Bipolar, Depression Additional Psychological History / Comment(s): . Smoking Status: Never smoker Past Alcohol Use History: None Reported Additional Past Alcohol Use History / Comment(s): . Past Drug Use History: None Reported - Past Family History Brother(s) Family Medical History: Diabetes Mellitus, Hyperlipidemia, Hypertension Additional Family Medical History / Comment(s): Patient states she has 1 brother with no major medical problems. Father Family Medical History: Diabetes Mellitus, Hyperlipidemia, Hypertension Additional Family Medical History / Comment(s): DAD IS 70 YEARS OLD. Patient states she does not have any contact with her father and does not know his med ical history. Mother Family Medical History: CVA/TIA, Deep Vein Thrombosis (DVT) Additional Family Medical History / Comment(s): antiphospholipid antibody syndrome lupas dementia Medications and Allergies Home Medications Medication Instructions Recorded Confirmed Type Levothyroxine Sodium [Synthroid] 100 mcg PO DAILY 01/16/19 06/01/21 History modafiniL [Provigil] 200 mg PO DAILY tab 03/07/19 06/01/21 Rx traMADol HCL [Ultram] 50 mg PO BID PRN 06/28/19 06/01/21 History Methenamine Hippurate 1 gm PO BID 07/12/19 06/01/21 History Ergocalciferol [Vitamin D2 50,000 unit PO TAYLOR 10/08/19 06/01/21 History (DRISDOL)] Insulin Aspart [NovoLOG Flexpen] See Protocol SQ ACHS 10/08/19 06/01/21 History Mirabegron [Myrbetriq] 25 mg PO DAILY 10/08/19 06/01/21 History Fenofibrate [Lofibra] 160 mg PO HS tab 10/17/19 06/01/21 Rx Gabapentin [Neurontin] 400 mg PO TID cap 10/17/19 06/01/21 Rx Metoprolol Succinate (ER) [Toprol 50 mg PO DAILY tab.er.24h 10/17/19 06/01/21 Rx XL] Ondansetron [Zofran] 8 mg PO Q6H PRN tab 10/17/19 06/01/21 Rx Rivaroxaban [Xarelto] 20 mg PO HS tab 10/17/19 06/01/21 Rx Trimethoprim [Trimpex] 100 mg PO HS tab 10/17/19 06/01/21 Rx Acetaminophen Tab [Tylenol] 650 mg PO Q6H PRN 11/29/19 06/01/21 History Erda Carbonate 900 mg PO HS 11/29/19 06/01/21 History Prochlorperazine Suppository 25 mg RECTAL Q8H PRN 11/29/19 06/01/21 History [Compazine] Promethazine [Phenergan] 25 mg PO Q6H PRN 11/30/19 06/01/21 History Levothyroxine Sodium [Synthroid] 125 mcg PO MOTUWETH 12/28/19 06/01/21 History Albuterol Inhaler [Ventolin Hfa 1 puff INHALATION RT-Q4H PRN 09/19/20 06/01/21 History Inhaler] Butalbital/Aspirin/Caffeine 1 tab PO Q4H PRN 09/19/20 06/01/21 History [Dktjgs-Zmsyrhz-Hrsigcwi 50-325-40 mg] Clonidine Er 0.1mg 0.1 mg PO BID 09/19/20 06/01/21 History Dexlansoprazole [Dexilant] 60 mg PO DAILY 09/19/20 06/01/21 History Dicyclomine [Bentyl] 20 mg PO QID 09/19/20 06/01/21 History Ferrous Sulfate [Iron (65 MG 325 mg PO DAILY 09/19/20 06/01/21 History Elemental)] Galcanezumab-Gnlm [Emgality Pen] 120 mg SQ Q30D 09/19/20 06/01/21 History Insulin Glargine,Hum.rec.anlog 80 unit SQ HS 09/19/20 06/01/21 History [Lantus Solostar] Linaclotide [Linzess] 145 mcg PO DAILY PRN 09/19/20 06/01/21 History Meloxicam [Mobic] 15 mg PO DAILY 09/19/20 06/01/21 History Rizatriptan Benzoate [Rizatriptan] 5 mg PO BID PRN 09/19/20 06/01/21 History Sodium Chloride 0.9% Iv 500 ml IV DAILY 09/19/20 06/01/21 History Metoclopramide HCl [Reglan] 10 mg PO ACHS 01/03/21 06/01/21 History Ascorbic Acid [Vitamin C] 250 mg PO DAILY 06/01/21 06/01/21 History Brexpiprazole [Rexulti] 0.5 mg PO HS 06/01/21 06/01/21 History Cbd Oil 1 applic TOPICAL DAILY PRN 06/01/21 06/01/21 History Clotrimazole Cream [Lotrimin Cream] 1 applic TOPICAL BID 06/01/21 06/01/21 History Cranberry Fruit Concentrate [Azo 250 mg PO BID PRN 06/01/21 06/01/21 History Cranberry] Cyanocobalamin (Vitamin B-12) 1,000 mcg PO DAILY 06/01/21 06/01/21 History [Vitamin B-12] Dextroamphetamine/Amphetamine 10 mg PO BID 06/01/21 06/01/21 History [Adderall] Ezetimibe [Zetia] 10 mg PO DAILY 06/01/21 06/01/21 History Fluticasone Nasal [place] [Flonase 1 spray EA NOSTRIL DAILY 06/01/21 06/01/21 History Nasal [place]] Loratadine [Claritin] 10 mg PO DAILY 06/01/21 06/01/21 History Magnesium Glycinate 665mg 1 tab PO DAILY 06/01/21 06/01/21 History Meclizine HCl 12.5 mg PO TID PRN 06/01/21 06/01/21 History Melatonin 10 mg PO HS PRN 06/01/21 06/01/21 History Nystatin 100,000Unit/gm Cream 1 applic TOPICAL BID 06/01/21 06/01/21 History [Mycostatin Cream] Triamcinolone 0.1% Cream [Kenalog 1 applicatio TOPICAL BID 06/01/21 06/01/21 History 0.1% Cream] busPIRone HCL 30 mg PO BID 06/01/21 06/01/21 History diphenhydrAMINE HCL [Benadryl] 25 mg PO DAILY PRN 06/01/21 06/01/21 History traZODone HCL 200 mg PO HS 06/01/21 06/01/21 History Baclofen [Lioresal] 20 mg PO Q12HR PRN 06/02/21 06/02/21 History hydrOXYzine pamoate [Vistaril] 50 mg PO 06/02/21 History Allergies Allergy/AdvReac Type Severity Reaction Status Date / Time peanut oil Allergy Severe Nausea & Verified 06/01/21 18:51 Vomiting,itching barium sulfate Allergy Anaphylaxis Verified 06/01/21 18:51 doxepin [Doxepin] Allergy Anaphylaxis Verified 06/01/21 18:51 ephedrine Allergy Chest Verified 06/01/21 18:51 Pain/tachycardia ertapenem [From Invanz] Allergy Rash/Hives Verified 06/01/21 18:51 influenza virus vaccine, Allergy severe Verified 06/01/21 18:51 specific swelling [Influenza Virus and hives Vacc,Specific] peanut Allergy Nausea & Verified 06/01/21 18:51 Vomiting/itching pseudoephedrine Allergy Chest Pain Verified 06/01/21 18:51 doxycycline AdvReac Nausea & Verified 06/01/21 18:51 Vomiting & Diarrhea Pertussis Vaccines AdvReac fever/seizu Verified 06/01/21 18:51 re pseudoephedrine HCl AdvReac chest Verified 06/01/21 18:51 [From Sudafed] pain/tachycardia sulfamethoxazole AdvReac Nausea & Verified 06/01/21 18:51 [From Bactrim] Vomiting trimethoprim [From Bactrim] AdvReac Nausea & Verified 06/01/21 18:51 Vomiting Surgical - Exam Vital Signs Temp Pulse Resp BP Pulse Ox 98.0 F 94 20 159/89 99 06/01/21 15:12 06/01/21 15:12 06/01/21 15:12 06/01/21 15:12 06/01/21 15:12 Results - Labs 06/02/21 04:29 06/02/21 04:29 Abnormal Lab Results - Last 24 Hours (Table) 06/01/21 06/01/21 06/02/21 Range/Units 15:35 20:21 04:29 RBC (4.10-5.20) X 10*6/uL Hgb (12.0-15.0) g/dL Hct (37.2-46.3) % MCHC (32.0-37.0) g/dL MPV (9.5-12.2) fL Immature Gran # (0.00-0.04) X 10*3/uL Glucose 109 H (74-99) mg/dL POC Glucose (mg/dL) 108 H (75-99) mg/dL Total Protein 6.1 L (6.2-8.2) g/dL 06/02/21 06/02/21 06/02/21 Range/Units 04:29 07:02 12:05 RBC 4.00 L (4.10-5.20) X 10*6/uL Hgb 11.5 L (12.0-15.0) g/dL Hct 36.7 L (37.2-46.3) % MCHC 31.3 L (32.0-37.0) g/dL MPV 9.4 L (9.5-12.2) fL Immature Gran # 0.06 H (0.00-0.04) X 10*3/uL Glucose (74-99) mg/dL POC Glucose (mg/dL) 113 H 171 H (75-99) mg/dL Total Protein (6.2-8.2) g/dL Diabetes panel 06/01/21 06/02/21 Range/Units 15:35 04:29 Sodium 141 140 (137-145) mmol/L Potassium 4.1 3.9 (3.5-5.1) mmol/L Chloride 107 106 (98-107) mmol/L Carbon Dioxide 24 26.5 (22-30) mmol/L BUN 12 10.0 (7-17) mg/dL Creatinine 0.66 0.8 (0.52-1.04) mg/dL Glucose 109 H 95 (74-99) mg/dL Calcium 9.7 8.9 (8.4-10.2) mg/dL AST 33 27 (14-36) U/L ALT 23 24 (4-34) U/L Alkaline Phosphatase 59 50 (38-126) U/L Total Protein 7.1 6.1 L (6.3-8.2) g/dL Albumin 4.5 4.30 (3.5-5.0) g/dL Calcium panel 06/01/21 06/02/21 Range/Units 15:35 04:29 Calcium 9.7 8.9 (8.4-10.2) mg/dL Albumin 4.5 4.30 (3.5-5.0) g/dL Pituitary panel 06/01/21 06/02/21 Range/Units 15:35 04:29 Sodium 141 140 (137-145) mmol/L Potassium 4.1 3.9 (3.5-5.1) mmol/L Chloride 107 106 (98-107) mmol/L Carbon Dioxide 24 26.5 (22-30) mmol/L BUN 12 10.0 (7-17) mg/dL Creatinine 0.66 0.8 (0.52-1.04) mg/dL Glucose 109 H 95 (74-99) mg/dL Calcium 9.7 8.9 (8.4-10.2) mg/dL Adrenal panel 06/01/21 06/02/21 Range/Units 15:35 04:29 Sodium 141 140 (137-145) mmol/L Potassium 4.1 3.9 (3.5-5.1) mmol/L Chloride 107 106 (98-107) mmol/L Carbon Dioxide 24 26.5 (22-30) mmol/L BUN 12 10.0 (7-17) mg/dL Creatinine 0.66 0.8 (0.52-1.04) mg/dL Glucose 109 H 95 (74-99) mg/dL Calcium 9.7 8.9 (8.4-10.2) mg/dL Total Bilirubin 0.2 0.3 (0.2-1.3) mg/dL AST 33 27 (14-36) U/L ALT 23 24 (4-34) U/L Alkaline Phosphatase 59 50 (38-126) U/L Total Protein 7.1 6.1 L (6.3-8.2) g/dL Albumin 4.5 4.30 (3.5-5.0) g/dL
--- NOTE | 2021-06-02 15:43 | NM ---
EXAMINATION TYPE: NM hepatobiliary w CCK DATE OF EXAM: 06/02/2021 COMPARISON: 06/01/2021 gallbladder ultrasound HISTORY: Right upper quadrant pain TECHNIQUE: After the intravenous administration of 4.9 mCi Tc 99m Mebrofenin hepatobiliary scintigrap hy is performed. Immediate images post injection. FINDINGS: There is satisfactory initial accumulation of tracer by the liver. The gallbladder is visualized wit hin 15 minutes. The small bowel activity is noted within 20 minutes. At one hour CCK was administer ed, patient was injected with 2.4 mcg of Kinevac, and gallbladder ejection fraction is calculated at 35 %, in the normal range. Therefore there is no scintigraphic evidence of cystic or common bile anderson t obstruction to suggest acute cholecystitis or gallbladder dyskinesia. IMPRESSION: 1. No evidence of acute/chronic cholecystitis or biliary dyskinesia. 2. Gallbladder ejection fraction 35%.
--- NOTE | 2021-06-02 16:19 | P.CONS ---
History of Present Illness - Reason for Consult Consult date: 06/02/21 hematological thrombolic history and lupus anticoagulant? Requesting physician: Adriana Douglas - History of Present Illness Francisca is a 40 year old female with known history of distonia and other mul tiple medical problems and a fairly complex hematologic history. She was diagnosed with the left upper extremity DVT, and also suffered a TIA/CVA at that time, about 10 years ago. This was in [place]. Per the patient the initial DVT was unprovoked. She was started on anticoagulation at that time. She states that she had a hypercoagulable workup done and was told that she had lupus anticoagulant positive. Per the patient, her workup and also indicated the possibility of an autoimmune disease. She was placed on Coumadin at the time, however over the years she had a difficult time maintaining a therapeutic INR and was changed to DOAC. COncern of known lupus anticoagulatant has been the reason for this days consult and recommendation for anticoagulation. She was seen by our group in 2014, 2016 while inpatient however never did follow-up in office. Review of Systems All systems: negative Constitutional: Reports as per HPI Past Medical History Past Medical History: CVA/TIA, Diabetes Mellitus, Deep Vein Thrombosis (DVT), Neurologic Disorder, Syncope, Thyroid Disorder Additional Past Medical History / Comment(s): port currently not working, STROKE LIKE EPISODE D/T MITOCHRONDIAL DISEASE HAD WORK UP DONE AT [facility]. Dysautonomia, idiopathic intracranial HTN, lupus/LUPUS ANTICOAGULANTS, ana maria's disease, lymphedema Lt arm d/t DVTs, v-tach, pituitary microadenoma. patent foramen ovale, narcolepsy, gastropareis, HX orthostatic hypotension/syncope, migraines with hemiplegia, pernicious anemia, polycystic ovarian syndrome, neuropathy vicki ateral legs/feet - mild, uti's. neurogenic bladder, stress incontinence, uses wheelchair, able to transfer and walk few steps History of Any Multi-Drug Resistant Organisms: ESBL, MRSA Year Discovered:: 03/09/17 MRSA/ 05/17/18 ESBL MDRO Source:: MRSA LEFT ARM,/ESBL URINE ECOLI Past Surgical History: Uterine Ablation Additional Past Surgical History / Comment(s): colonscopy/egd, angie, PORT-A -CATH INSERTION, Past Anesthesia/Blood Transfusion Reactions: Previous Problems w/ Anesthesia Additional Past Anesthesia/Blood Transfusion Reaction / Comm: patient states "It takes a lot of anesthesia for my body to react". Pt has received blood in past without reaction. Past Psychological History: Bipolar, Depression Additional Psychological History / Comment(s): . Smoking Status: Never smoker Past Alcohol Use History: None Reported Additional Past Alcohol Use History / Comment(s): . Past Drug Use History: None Reported - Past Family History Brother(s) Family Medical History: Diabetes Mellitus, Hyperlipidemia, Hypertension Additional Family Medical History / Comment(s): Patient states she has 1 brother with no major medical problems. Father Family Medical History: Diabetes Mellitus, Hyperlipidemia, Hypertension Additional Family Medical History / Comment(s): DAD IS 70 YEARS OLD. Patient states she does not have any contact with her father and does not know his medical history. Mother Family Medical History: CVA/TIA, Deep Vein Thrombosis (DVT) Additional Family Medical History / Comment(s): antiphospholipid antibody syndrome lupas dementia Medications and Allergies Home Medications Medication Instructions Recorded Confirmed Type Levothyroxine Sodium [Synthroid] 100 mcg PO DAILY 01/16/19 06/01/21 History modafiniL [Provigil] 200 mg PO DAILY tab 03/07/19 06/01/21 Rx traMADol HCL [Ultram] 50 mg PO BID PRN 06/28/19 06/01/21 History Methenamine Hippurate 1 gm PO BID 07/12/19 06/01/21 History Ergocalciferol [Vitamin D2 50,000 unit PO TAYLOR 10/08/19 06/01/21 History (DRISDOL)] Insulin Aspart [NovoLOG Flexpen] See Protocol SQ ACHS 10/08/19 06/01/21 History Mirabegron [Myrbetriq] 25 mg PO DAILY 10/08/19 06/01/21 History Fenofibrate [Lofibra] 160 mg PO HS tab 10/17/19 06/01/21 Rx Gabapentin [Neurontin] 400 mg PO TID cap 10/17/19 06/01/21 Rx Metoprolol Succinate (ER) [Toprol 50 mg PO DAILY tab.er.24h 10/17/19 06/01/21 Rx XL] Ondansetron [Zofran] 8 mg PO Q6H PRN tab 10/17/19 06/01/21 Rx Rivaroxaban [Xarelto] 20 mg PO HS tab 10/17/19 06/01/21 Rx Trimethoprim [Trimpex] 100 mg PO HS tab 10/17/19 06/01/21 Rx Acetaminophen Tab [Tylenol] 650 mg PO Q6H PRN 11/29/19 06/01/21 History [place] Carbonate 900 mg PO HS 11/29/19 06/01/21 History Prochlorperazine Suppository 25 mg RECTAL Q8H PRN 11/29/19 06/01/21 History [Compazine] Promethazine [Phenergan] 25 mg PO Q6H PRN 11/30/19 06/01/21 History Levothyroxine Sodium [Synthroid] 125 mcg PO MOTUWETH 12/28/19 06/01/21 History Albuterol Inhaler [Ventolin Hfa 1 puff INHALATION RT-Q4H PRN 09/19/20 06/01/21 History Inhaler] Butalbital/Aspirin/Caffeine 1 tab PO Q4H PRN 09/19/20 06/01/21 History [Ijazvd-Eiehuhf-Ebfmpmcr 50-325-40 mg] Clonidine Er 0.1mg 0.1 mg PO BID 09/19/20 06/01/21 History Dexlansoprazole [Dexilant] 60 mg PO DAILY 09/19/20 06/01/21 History Dicyclomine [Bentyl] 20 mg PO QID 09/19/20 06/01/21 History Ferrous Sulfate [Iron (65 MG 325 mg PO DAILY 09/19/20 06/01/21 History Elemental)] Galcanezumab-Gnlm [Emgality Pen] 120 mg SQ Q30D 09/19/20 06/01/21 History Insulin Glargine,Hum.rec.anlog 80 unit SQ HS 09/19/20 06/01/21 History [Lantus Solostar] Linaclotide [Linzess] 145 mcg PO DAILY PRN 09/19/20 06/01/21 History Meloxicam [Mobic] 15 mg PO DAILY 09/19/20 06/01/21 History Rizatriptan Benzoate [Rizatriptan] 5 mg PO BID PRN 09/19/20 06/01/21 History Sodium Chloride 0.9% Iv 500 ml IV DAILY 09/19/20 06/01/21 History Metoclopramide HCl [Reglan] 10 mg PO ACHS 01/03/21 06/01/21 History Ascorbic Acid [Vitamin C] 250 mg PO DAILY 06/01/21 06/01/21 History Brexpiprazole [Rexulti] 0.5 mg PO HS 06/01/21 06/01/21 History Cbd Oil 1 applic TOPICAL DAILY PRN 06/01/21 06/01/21 History Clotrimazole Cream [Lotrimin Cream] 1 applic TOPICAL BID 06/01/21 06/01/21 History Cranberry Fruit Concentrate [Azo 250 mg PO BID PRN 06/01/21 06/01/21 History Cranberry] Cyanocobalamin (Vitamin B-12) 1,000 mcg PO DAILY 06/01/21 06/01/21 History [Vitamin B-12] Dextroamphetamine/Amphetamine 10 mg PO BID 06/01/21 06/01/21 History [Adderall] Ezetimibe [Zetia] 10 mg PO DAILY 06/01/21 06/01/21 History Fluticasone Nasal [place] [Flonase 1 spray EA NOSTRIL DAILY 06/01/21 06/01/21 History Nasal [place]] Loratadine [Claritin] 10 mg PO DAILY 06/01/21 06/01/21 History Magnesium Glycinate 665mg 1 tab PO DAILY 06/01/21 06/01/21 History Meclizine HCl 12.5 mg PO TID PRN 06/01/21 06/01/21 History Melatonin 10 mg PO HS PRN 06/01/21 06/01/21 History Nystatin 100,000Unit/gm Cream 1 applic TOPICAL BID 06/01/21 06/01/21 History [Mycostatin Cream] Triamcinolone 0.1% Cream [Kenalog 1 applicatio TOPICAL BID 06/01/21 06/01/21 History 0.1% Cream] busPIRone HCL 30 mg PO BID 06/01/21 06/01/21 History diphenhydrAMINE HCL [Benadryl] 25 mg PO DAILY PRN 06/01/21 06/01/21 History traZODone HCL 200 mg PO HS 06/01/21 06/01/21 History Baclofen [Lioresal] 20 mg PO Q12HR PRN 06/02/21 06/02/21 History hydrOXYzine pamoate [Vistaril] 50 mg PO 06/02/21 History Allergies Allergy/AdvReac Type Severity Reaction Status Date / Time peanut oil Allergy Severe Nausea & Verified 06/01/21 18:51 Vomiting,itching barium sulfate Allergy Anaphylaxis Verified 06/01/21 18:51 doxepin [Doxepin] Allergy Anaphylaxis Verified 06/01/21 18:51 ephedrine Allergy Chest Verified 06/01/21 18:51 Pain/tachycardia ertapenem [From Invanz] Allergy Rash/Hives Verified 06/01/21 18:51 influenza virus vaccine, Allergy severe Verified 06/01/21 18:51 specific swelling [Influenza Virus and hives Vacc,Specific] peanut Allergy Nausea & Verified 06/01/21 18:51 Vomiting/itching pseudoephedrine Allergy Chest Pain Verified 06/01/21 18:51 doxycycline AdvReac Nausea & Verified 06/01/21 18:51 Vomiting & Diarrhea Pertussis Vaccines AdvReac fever/seizu Verified 06/01/21 18:51 re pseudoephedrine HCl AdvReac chest Verified 06/01/21 18:51 [From Sudafed] pain/tachycardia sulfamethoxazole AdvReac Nausea & Verified 06/01/21 18:51 [From Bactrim] Vomiting trimethoprim [From Bactrim] AdvReac Nausea & Verified 06/01/21 18:51 Vomiting Physical Exam Vitals: Vital Signs Temp Pulse Pulse Resp BP BP Pulse Ox 06/02/21 07:00 97.9 F 72 17 147/85 97 06/02/21 01:59 98.2 F 73 16 130/81 97 06/01/21 19:18 99.1 F 82 16 135/82 95 06/01/21 18:29 89 16 128/78 99 Intake and Output 06/02/21 06/02/21 06/02/21 06:59 14:59 22:59 Other: # Voids 2 3 - Constitutional General appearance: cooperative, no acute distress - EENT Eyes: EOMI ENT: NA/AT - Neck distonia - Respiratory Respiratory: bilateral: diminished - Cardiovascular Rhythm: regularly irregular - Gastrointestinal General gastrointestinal: soft - Integumentary Integumentary: pale - Musculoskeletal Musculoskeletal: generalized weakness - Psychiatric Psychiatric: A&O x's 3, appropriate affect Results CBC & Chem 7: 06/02/21 04:29 06/02/21 16:44 Labs: Abnormal Lab Results - Last 24 Hours (Table) 06/01/21 06/01/21 06/02/21 Range/Units 15:35 20:21 04:29 RBC (4.10-5.20) X 10*6/uL Hgb (12.0-15.0) g/dL Hct (37.2-46.3) % MCHC (32.0-37.0) g/dL MPV (9.5-12.2) fL Immature Gran # (0.00-0.04) X 10*3/uL Glucose 109 H (74-99) mg/dL POC Glucose (mg/dL) 108 H (75-99) mg/dL Total Protein 6.1 L (6.2-8.2) g/dL 06/02/21 06/02/21 06/02/21 Range/Units 04:29 07:02 12:05 RBC 4.00 L (4.10-5.20) X 10*6/uL Hgb 11.5 L (12.0-15.0) g/dL Hct 36.7 L (37.2-46.3) % MCHC 31.3 L (32.0-37.0) g/dL MPV 9.4 L (9.5-12.2) fL Immature Gran # 0.06 H (0.00-0.04) X 10*3/uL Glucose (74-99) mg/dL POC Glucose (mg/dL) 113 H 171 H (75-99) mg/dL Total Protein (6.2-8.2) g/dL Assessment and Plan (1) CVA (cerebral vascular accident) Current Visit: No Status: Acute Code(s): I63.9 - CEREBRAL INFARCTION, UNSPECIFIED SNOMED Code(s): 909010219 (2) History of TIA (transient ischemic attack) Current Visit: No Status: Acute Code(s): Z86.73 - PRSNL HX OF TIA (TIA), AND CEREB INFRC W/O RESID DEFICITS SNOMED Code(s): 473278900 (3) MRSA (methicillin resistant staph aureus) culture positive Current Visit: No Status: Acute Code(s): Z22.322 - CARRIER OR SUSPECTED CARRIER OF METHICILLIN RESIS STAPH SNOMED Code(s): 199934901 (4) Major depressive disorder with psychotic features Current Visit: No Status: Acute Priority: Low Code(s): F32.3 - MAJOR DEPRESSV DISORD, SINGLE EPSD, SEVERE W PSYCH FEATURES SNOMED Code(s): 714600374 (5) History of DVT (deep vein thrombosis) Current Visit: No Status: Chronic Code(s): Z86.718 - PERSONAL HISTORY OF OTHER VENOUS THROMBOSIS AND EMBOLISM SNOMED Code(s): 048846585 Plan: Patient with previous positive lupus anticoagulant which could be a result on anticoagulation. She has taken last DOAC on Tuesday therefore will recheck now. If positive would be best to continue on lovenox versus DOAC given the limited studies on efficacy in this population of patients. awill continue to follow Physician Attest: I have completed the full history and physical and agree with above dictation, dictated as a scribe.
[2021-06-02] MEDS ORDERED: PROCHLORPERAZINE SUPPOSITORY 25 MG SUPP RECTAL PRN (16:27)
[2021-06-02] MEDS ORDERED: ALBUTEROL HFA INHALER INHALATION PRN (16:27)
[2021-06-02] MEDS ORDERED: PROMETHAZINE 25 MG TAB PO PRN (16:27)
[2021-06-02] MEDS ORDERED: traMADol 50 MG TAB PO PRN (16:27)
[2021-06-02 16:59] LABS: Glucose,Whole Blood 141 mg/dL (75-99)
[2021-06-02] MEDS: LEVOTHYROXINE 125 MCG TAB PO SCH (17:17)
[2021-06-02] MEDS: INSULIN ASPART (NovoLOG) 100 UNIT/ML VIAL SQ SCH ×2 (17:17→20:42)
[2021-06-02 17:30] LABS: ALT 27 U/L (4-34); AST 41 U/L (14-36); African American GFR (CKD) >90 (>60 ml/min/1.73 sqM); Albumin 4.3 g/dL (3.5-5.0); Albumin/Globulin Ratio 1.7; Alkaline Phosphatase 61 U/L (38-126); Anion Gap 11 mmol/L; Blood Urea Nitrogen 7 mg/dL (7-17); C Reactive Protein 2.3 mg/dL (<1.0); Calcium 9.8 mg/dL (8.4-10.2); Carbon Dioxide 21 mmol/L (22-30); Chloride 107 mmol/L (98-107); Globulin 2.5 g/dL; Glucose 135 mg/dL (74-99); Non-African American GFR(CKD) >90 (>60 ml/min/1.73 sqM); Potassium 4.2 mmol/L (3.5-5.1); Sodium 139 mmol/L (137-145); Total Bilirubin 0.2 mg/dL (0.2-1.3); Total Protein 6.8 g/dL (6.3-8.2)
--- NOTE | 2021-06-02 18:25 | PN ---
PROGRESS NOTE DATE OF SERVICE: 06/02/2021 INTERVAL HISTORY: This 40-year-old woman, who was admitted with acute abdominal pain with acute cholecystitis and hydropic gallbladder, is slated to have a HIDA scan today. Surgery is following the patient closely. No chest pain. No palpitations. No fever. Gallbladder ejection fraction found with 35%. No chest pain. No palpitations. PHYSICAL EXAMINATION: Pulse 72, blood pressure 147/85 respiration 17, temperature 97.9, pulse ox 97% on room air. HEENT: Normal. RESPIRATION: Breath sounds diminished at the bases. No rhonchi, no crackles. ABDOMEN: Soft, mild diffuse tenderness in the upper quadrant present. LEGS: Are no edema. No swelling. NERVOUS SYSTEM: No focal deficits. LABS: WBC 9.4, hemoglobin 11.5 glucose 131, 171. ASSESSMENT: 1. Acute abdominal pain with possible acute cholecystitis and hydropic gallbladder. 2. History of lactic acidosis, leukocytosis. 3. Recent history of sepsis and bacteremia. 4. History of lupus, on lifelong anticoagulation. 5. History of cerebrovascular accident, transient ischemic attack. 6. Diabetes mellitus, type 2. 7. History of deep vein thrombosis. 8. History of syncope. 9. History of mitochondrial disease worked up at [facility]. 10.History of dysautonomia. 11.History of idiopathic intracranial hypertension. 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 13.History of deep vein thrombosis. 14.History of ventricular tachycardia. 15.History of pituitary microadenoma. 16.History of narcolepsy. 17.History of gastroparesis. 18.History of pernicious anemia. 19.History of polycystic ovarian disorder. 20.History of bilateral peripheral neuropathy. 21.History UTIs. 22.History of stress incontinence. 23.History ESBL. 24.History of MRSA. 25.History of bipolar, depression. 26.Obesity with body mass index of 44.9. 27.FULL CODE. RECOMMENDATIONS AND DISCUSSION: I recommend to continue current management and close for surgery. Overall prognosis guarded. Further recommendations to follow. MMODL / IJN: [id number] /
[2021-06-02 20:04] LABS: Glucose,Whole Blood 165 mg/dL (75-99)
[2021-06-02] MEDS: TRIMETHOPRIM 100 MG TAB PO SCH (20:42)
[2021-06-02] MEDS: LITHIUM CARBONATE 300 MG CAP PO SCH (20:43)
[2021-06-02] MEDS: NON FORMULARY DRUG (Brexpiprazole [Rexulti] 0.5 MG Tablet) PO SCH (20:44)
[2021-06-02] MEDS: FENOFIBRATE 160 MG TAB PO SCH (20:44)
[2021-06-02] MEDS ORDERED: INSULIN DETEMIR (LEVEMIR) 100 UNIT/ML SYR SQ SCH ×2 (21:00)
[2021-06-02] MEDS ORDERED: traZODone HCL 100 MG TAB PO SCH (21:00)
[2021-06-02] MEDS: BACLOFEN 10 MG TAB PO PRN (21:14)
[2021-06-02] MEDS: hydrOXYzine pamoate 25 MG CAP PO SCH (22:05)
[2021-06-03] MEDS: LEVOTHYROXINE 125 MCG TAB PO SCH (05:39)
[2021-06-03] MEDS: LEVOTHYROXINE 100 MCG TAB PO SCH (05:45)
[2021-06-03 06:38] LABS: Basophils # (A) 0.1 k/uL (0-0.2); Basophils % (A) 1 %; Eosinophils # (A) 0.3 k/uL (0-0.7); Eosinophils % (A) 4 %; HCT 37.2 % (34.0-46.0); HGB 12.4 gm/dL (11.4-16.0); Lymphocytes # (A) 1.6 k/uL (1.0-4.8); Lymphocytes % (A) 20 %; MCH 29.4 pg (25.0-35.0); MCHC 33.4 g/dL (31.0-37.0); Mean Platelet Volume 6.6; Monocytes # (A) 0.5 k/uL (0-1.0); Monocytes % (A) 6 %; Neutrophils # (A) 5.7 k/uL (1.3-7.7); Neutrophils % (A) 69 %; Platelet Count 337 k/uL (150-450); RBC 4.23 m/uL (3.80-5.40); RDW 13.3 % (11.5-15.5); WBC 8.3 k/uL (3.8-10.6)
[2021-06-03 06:52] LABS: ALT 22 U/L (4-34); AST 28 U/L (14-36); African American GFR (CKD) >90 (>60 ml/min/1.73 sqM); Albumin/Globulin Ratio 1.7; Alkaline Phosphatase 54 U/L (38-126); Anion Gap 8 mmol/L; Blood Urea Nitrogen 8 mg/dL (7-17); Calcium 9.5 mg/dL (8.4-10.2); Carbon Dioxide 24 mmol/L (22-30); Chloride 107 mmol/L (98-107); Globulin 2.3 g/dL; Glucose 148 mg/dL (74-99); Non-African American GFR(CKD) >90 (>60 ml/min/1.73 sqM); Potassium 4.2 mmol/L (3.5-5.1); Sodium 139 mmol/L (137-145); Total Bilirubin 0.2 mg/dL (0.2-1.3); Total Protein 6.3 g/dL (6.3-8.2)
[2021-06-03 06:53] LABS: Glucose,Whole Blood 152 mg/dL (75-99)
[2021-06-03 07:03] LABS: % Iron Saturation 48.98 (12.00-45.00); Iron 192 ug/dL (50-170); Total Iron Binding Capacity 392 ug/dL (228-460)
[2021-06-03 07:04] LABS: Ferritin 63.6 ng/mL (10.0-291.0)
[2021-06-03 07:09] LABS: Folate, Serum 13.2 ng/mL
[2021-06-03] MEDS: INSULIN ASPART (NovoLOG) 100 UNIT/ML VIAL SQ SCH ×4 (08:06→21:50)
[2021-06-03] MEDS: SODIUM CHLORIDE 0.9% 1,000 ML IV SCH ×3 (08:06→22:59)
[2021-06-03] MEDS: INSULIN DETEMIR (LEVEMIR) 100 UNIT/ML SYR SQ SCH (08:06)
[2021-06-03] MEDS: METOPROLOL SUCCINATE (ER) 50 MG TAB.ER.24H PO SCH (08:06)
[2021-06-03] MEDS: MELOXICAM 7.5 MG TAB PO SCH (08:07)
[2021-06-03] MEDS: ASCORBIC ACID 500 MG TAB PO SCH (08:07)
[2021-06-03] MEDS: CYANOCOBALAMIN 500 MCG TAB PO SCH (08:07)
[2021-06-03] MEDS: busPIRone HCl 10 MG TAB PO SCH ×2 (08:07→21:45)
[2021-06-03] MEDS: LORATADINE 10 MG TAB PO SCH (08:07)
[2021-06-03] MEDS: GABAPENTIN 400 MG CAP PO SCH ×3 (08:07→21:48)
[2021-06-03] MEDS: METOCLOPRAMIDE 10 MG TAB PO SCH ×4 (08:07→21:45)
[2021-06-03] MEDS: FERROUS SULFATE 325 MG TAB PO SCH (08:07)
[2021-06-03] MEDS: PANTOPRAZOLE 40 MG TABLET PO SCH (08:07)
[2021-06-03] MEDS: EZETIMIBE 10 MG TAB PO SCH (08:07)
[2021-06-03] MEDS: FLUTICASONE 50MCG/SPRAY NASAL 16GM EA NOSTRIL SCH (08:08)
[2021-06-03] MEDS: TRIAMCINOLONE 0.1% CREAM 80 GM TUBE TOPICAL SCH ×2 (08:12→21:58)
[2021-06-03] MEDS: NYSTATIN 100,000UNIT/GM CREAM 30 GM TUBE TOPICAL SCH ×2 (08:12→21:45)
[2021-06-03] MEDS: NON FORMULARY DRUG (Mirabegron [Myrbetriq] 25 MG Tab.Er.24h) PO SCH (08:12)
[2021-06-03] MEDS: NON FORMULARY DRUG (Methenamine Hippurate [Methenamine Hippurate] 1 GM Tablet) PO SCH ×2 (08:12→21:36)
[2021-06-03] MEDS: NON FORMULARY DRUG (Dextroamphetamine/Amphetamine [Adderall] 10 MG Tablet) PO SCH (08:14)
[2021-06-03] MEDS: CLONIDINE 0.1 MG PO SCH ×2 (08:14→21:36)
--- NOTE | 2021-06-03 08:57 | P.PN ---
Progress Note - Text Progress Note Date: 06/02/21 Please see full consultation. Patient reports right upper quadrant pain following eating ham and potatoes prior to admission. She developed right upper quadrant pain. Patient is extremely high risk with Mobic and blood thinner, Xarelto. White blood cell count normal. STUDIES: I independently reviewed her HIDA scan. Nuclear study obtained to assess for acute cholecystitis. No evidence of acute cholecystitis. ASSESSMENT: 1. Right upper quadrant abdominal pain 2. Mitochondrial genetic disorder 3. Morbid obesity due to excess calories 4. History of DVTs and pulmonary embolus of PLAN: Recommend dietary adjustment low-fat diet. Additionally, patient would need to be off NSAIDs for 7 days and Xarelto for 2 days. Recommend outpatient cholecystectomy after adjustment of medications listed above. Recommend cardiac risk assessment advised
[2021-06-03] MEDS ORDERED: SODIUM CHLORIDE 0.9% IV SCH (09:00)
[2021-06-03 11:55] LABS: Glucose,Whole Blood 156 mg/dL (75-99)
[2021-06-03 13:32] LABS: APTT 48 Sec(s) (<43); APTT 1:1 Mix 42 Sec(s) (<43); Dilute Russell Viper Venom 44 Sec(s) (<44)
[2021-06-03] MEDS: HYDROcodone/APAP 5-325MG 1 EACH TAB PO PRN ×2 (13:46→21:46)
--- NOTE | 2021-06-03 14:01 | P.PN ---
Subjective Progress Note Date: 06/03/21 CHIEF COMPLAINT: Right upper quadrant abdominal pain HISTORY OF PRESENT ILLNESS: Surgical service is following regards patient's right upper quadrant abdominal pain. She reports that she did have pain after eating. However, her dinner yesterday did contain fatty foods such as gravely. Patient did have a HIDA scan completed that showed no evidence of acute or chronic cholecystitis or biliary dyskinesia. Gallbladder ejection fraction is 35%. Patient is extremely high risk for surgery with the medications such as the Mobic and Xarelto. Patient is afebrile. WBC is 8.3 She is tolerating low- fat diet. No nausea or vomiting. Her pain is slightly better than admission. PHYSICAL EXAM: VITAL SIGNS: Reviewed GENERAL: Well-developed in no acute distress. HEENT: No sclera icterus. Extraocular movements grossly intact. Moist buccal mucosa. Head is atraumatic, normocephalic. Hears conversational speech. No nasal drainage. NECK: Supple without lymphadenopathy. CHEST: Non-labored respirations and equal bilateral excursions. CARDIOVASCULAR: Palpable 2+ radial pulses. ABDOMEN: Soft. Nondistended. MUSCULOSKELETAL: No clubbing or cyanosis. NEUROLOGIC: No focal or lateralizing signs. Cranial nerves II through XII grossly intact. PSYCH: Appropriate affect. Alert and oriented to person, place and time. SKIN: Well perfused. Good skin turgor. ASSESSMENT: 1. Right upper quadrant abdominal pain with large gallbladder noted on ultrasound. HIDA scan normal 2. Mitochondrial genetic disorder 3. Morbid obesity due to excess calories 4. History of DVTs and pulmonary embolus PLAN: -Recommend outpatient cholecystectomy -Patient is stable for discharge from surgical standpoint -Recommend cardiac risk assessment in the outpatient setting -Recommend that patient is off of her Mobic for 7 days and Xarelto for 2 days prior to surgery -Continue low-fat diet Physician Travel Guide note has been reviewed by physician. Signing provider agrees with the documented findings, assessment, and plan of care. Objective - Vital Signs Vital signs: Vital Signs Temp 98.1 F 06/03/21 07:00 Pulse 85 06/03/21 07:00 Resp 16 06/03/21 08:00 BP 152/88 06/03/21 07:00 Pulse Ox 100 06/03/21 07:00 Intake & Output 07/13/21 07/14/21 07/14/21 18:59 06:59 18:59 Intake Total 118 500 400 Balance 118 500 400 Intake: Oral 118 500 400 Other: Voiding Method Toilet # Voids 3 2 - Labs CBC & Chem 7: 06/03/21 05:59 06/03/21 05:59 Labs: Abnormal Lab Results - Last 24 Hours (Table) 06/02/21 06/02/21 06/02/21 Range/Units 16:44 16:44 16:57 Lupus Anticoag aPTT 48 H (<43) Sec(s) Carbon Dioxide 21 L (22-30) mmol/L Glucose 135 H (74-99) mg/dL POC Glucose (mg/dL) 141 H (75-99) mg/dL Iron 192 H (50-170) ug/dL % Saturation 48.98 H (12.00-45.00) AST 41 H (14-36) U/L C-Reactive Protein 2.3 H (<1.0) mg/dL 06/02/21 06/03/21 06/03/21 Range/Units 20:02 05:59 06:51 Lupus Anticoag aPTT (<43) Sec(s) Carbon Dioxide (22-30) mmol/L Glucose 148 H (74-99) mg/dL POC Glucose (mg/dL) 165 H 152 H (75-99) mg/dL Iron (50-170) ug/dL % Saturation (12.00-45.00) AST (14-36) U/L C-Reactive Protein (<1.0) mg/dL 06/03/21 Range/Units 11:53 Lupus Anticoag aPTT (<43) Sec(s) Carbon Dioxide (22-30) mmol/L Glucose (74-99) mg/dL POC Glucose (mg/dL) 156 H (75-99) mg/dL Iron (50-170) ug/dL % Saturation (12.00-45.00) AST (14-36) U/L C-Reactive Protein (<1.0) mg/dL Microbiology - Last 24 Hours (Table) 06/01/21 20:14 Blood Culture - Preliminary Blood No Growth after 24 hours
--- NOTE | 2021-06-03 14:44 | PN ---
PROGRESS NOTE DATE OF SERVICE: 06/03/2021 HISTORY OF PRESENT ILLNESS: This 40-year-old woman who was admitted with acute abdominal pain, has got hydropic gallbladder, cholecystis suspected. HIDA scan, as per report, is negative. No chest pain. No palpitations. No fever. Dr. Mendez recommended outpatient evaluation and possible cholecystectomy as an outpatient. PHYSICAL EXAMINATION: Alert and oriented x3. blood pressure 150/88, respirations 16, temperature 98.1 pulse ox 100 percent on room air. HEENT: Conjunctivae normal. NECK: No JVD. CARDIOVASCULAR: S1, S2 normal. RESPIRATORY SYSTEM: Breath sounds diminished at the bases, no rhonchi, no crackles.. ABDOMEN: Soft, mild diffuse tenderness in the right upper quadrant. LEGS: Are no edema. NERVOUS SYSTEM: No focal deficits. LABS: Labs are glucose 148, 152. ASSESSMENT: 1. Acute abdominal pain with hydropic gallbladder with possible cholecystitis. 2. History of lactic acidosis, leukocytosis. 3. Number recent sepsis and bacteremia. 4. History of lupus, on lifelong anticoagulation. 5. History of cerebrovascular accident, transient ischemic attack. 6. Diabetes mellitus, type 2. 7. History of deep vein thrombosis. 8. History of syncope. 9. History of mitochondrial disease worked up at [facility]. 10.History of dysautonomia. 11.History of idiopathic intracranial hypertension. 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 13.History of DVT. 14.History of ventricular tachycardia. 15.History of pulmonary microadenoma. 16.History of narcolepsy. 17.History of gastroparesis. 18.History of pernicious anemia. 19.History of polycystic ovarian syndrome. 20.History of bilateral peripheral neuropathy. 21.History of urinary tract infection. 22.History of stress incontinence. 23.History of ESBL. 24.History of MRSA. 25.History of bipolar, depression. 26.Obesity with body mass index of 44.6. 27.FULL CODE. RECOMMENDATIONS AND DISCUSSION: To continue current management and symptomatic treatment. Otherwise, the labs are normal at this time. Continue to monitor. Further recommendations to follow. MMODL / IJN: [id number] /
[2021-06-03 14:55] VITALS: BMI 44.9
[2021-06-03 17:14] LABS: Glucose,Whole Blood 146 mg/dL (75-99)
--- NOTE | 2021-06-03 19:51 | P.PN ---
Subjective Progress Note Date: 06/03/21 Lupus anticoagulatant studies are pending still, will recheck in am. Further Recommendations to follow Objective - Vital Signs Vital signs: Vital Signs Temp 98.9 F 06/03/21 18:52 Pulse 85 06/03/21 18:52 Resp 16 06/03/21 18:52 BP 109/72 06/03/21 18:52 Pulse Ox 96 06/03/21 18:52 Intake & Output 06/03/21 06/03/21 06/04/21 06:59 18:59 06:59 Intake Total 500 1100 Balance 500 1100 Weight 122.47 kg Intake: IV 400 Sodium Chloride 0.9% 1, 400 000 ml @ 110 mls/hr IV . Q9H6M JOSE Rx#:[id number] Oral 500 700 Other: Voiding Method Toilet # Voids 2 1 - Exam - Constitutional General appearance: cooperative, no acute distress - EENT Eyes: EOMI ENT: NA/AT - Neck distonia - Respiratory Respiratory: bilateral: diminished - Cardiovascular Rhythm: regularly irregular - Gastrointestinal General gastrointestinal: soft - Integumentary Integumentary: pale - Musculoskeletal Musculoskeletal: generalized weakness - Psychiatric Psychiatric: A&O x's 3, appropriate affect - Labs CBC & Chem 7: 06/03/21 05:59 06/03/21 05:59 Labs: Abnormal Lab Results - Last 24 Hours (Table) 06/02/21 06/02/21 06/02/21 Range/Units 16:44 16:44 20:02 Lupus Anticoag aPTT 48 H (<43) Sec(s) Glucose (74-99) mg/dL POC Glucose (mg/dL) 165 H (75-99) mg/dL Iron 192 H (50-170) ug/dL % Saturation 48.98 H (12.00-45.00) 06/03/21 06/03/21 06/03/21 Range/Units 05:59 06:51 11:53 Lupus Anticoag aPTT (<43) Sec(s) Glucose 148 H (74-99) mg/dL POC Glucose (mg/dL) 152 H 156 H (75-99) mg/dL Iron (50-170) ug/dL % Saturation (12.00-45.00) 06/03/21 Range/Units 17:12 Lupus Anticoag aPTT (<43) Sec(s) Glucose (74-99) mg/dL POC Glucose (mg/dL) 146 H (75-99) mg/dL Iron (50-170) ug/dL % Saturation (12.00-45.00) Microbiology - Last 24 Hours (Table) 06/01/21 20:14 Blood Culture - Preliminary Blood No Growth after 24 hours Assessment and Plan (1) CVA (cerebral vascular accident) Current Visit: No Status: Acute Code(s): I63.9 - CEREBRAL INFARCTION, UNSP ECIFIED SNOMED Code(s): 195191154 (2) History of TIA (transient ischemic attack) Current Visit: No Status: Acute Code(s): Z86.73 - PRSNL HX OF TIA (TIA), AND CEREB INFRC W/O RESID DEFICITS SNOMED Code(s): 172079994 (3) MRSA (methicillin resistant staph aureus) culture positive Current Visit: No Status: Acute Code(s): Z22.322 - CARRIER OR SUSPECTED CA RRIER OF METHICILLIN RESIS STAPH SNOMED Code(s): 692033487 (4) Major depressive disorder with psychotic features Current Visit: No Status: Acute Priority: Low Code(s): F32.3 - MAJOR DEPRESSV DISORD, SINGLE EPSD, SEVERE W PSYCH FEATURES SNOMED Code(s): 026622169 (5) History of DVT (deep vein thrombosis) Current Visit: No Status: Chronic Code(s): Z86.718 - PERSONAL HISTORY OF OTHER VENOUS THROMBOSIS AND EMBOLISM SNOMED Code(s): 391132467 Plan: Patient with previous positive lupus anticoagulant which could be a result on anticoagulation. She has taken last DOAC on Tuesday therefore will recheck now. If positive would be best to continue on lovenox versus DOAC given the limited studies on efficacy in this population of patients. awill continue to follow Lupus anticoagulatant studies are pending still, will recheck in am. Further Recommendations to follow
[2021-06-03 20:20] LABS: Glucose,Whole Blood 212 mg/dL (75-99)
[2021-06-03] MEDS: NON FORMULARY DRUG (Brexpiprazole [Rexulti] 0.5 MG Tablet) PO SCH (21:36)
[2021-06-03] MEDS: LITHIUM CARBONATE 300 MG CAP PO SCH (21:45)
[2021-06-03] MEDS: TRIMETHOPRIM 100 MG TAB PO SCH (21:46)
[2021-06-03] MEDS: hydrOXYzine pamoate 25 MG CAP PO SCH (21:48)
[2021-06-03] MEDS: FENOFIBRATE 160 MG TAB PO SCH (21:48)
[2021-06-03] MEDS: BACLOFEN 10 MG TAB PO PRN (21:51)
[2021-06-04] MEDS: LEVOTHYROXINE 125 MCG TAB PO SCH (06:21)
[2021-06-04] MEDS: LEVOTHYROXINE 100 MCG TAB PO SCH (06:21)
[2021-06-04 07:21] LABS: Glucose,Whole Blood 168 mg/dL (75-99)
[2021-06-04] MEDS: INSULIN ASPART (NovoLOG) 100 UNIT/ML VIAL SQ SCH ×2 (08:03→12:30)
[2021-06-04] MEDS: INSULIN DETEMIR (LEVEMIR) 100 UNIT/ML SYR SQ SCH (08:04)
[2021-06-04] MEDS: METOCLOPRAMIDE 10 MG TAB PO SCH ×2 (08:06→12:56)
[2021-06-04] MEDS: PANTOPRAZOLE 40 MG TABLET PO SCH (08:07)
[2021-06-04] MEDS: ASCORBIC ACID 500 MG TAB PO SCH (08:07)
[2021-06-04] MEDS: FERROUS SULFATE 325 MG TAB PO SCH (08:09)
[2021-06-04] MEDS: GABAPENTIN 400 MG CAP PO SCH (08:09)
[2021-06-04] MEDS: busPIRone HCl 10 MG TAB PO SCH (08:09)
[2021-06-04] MEDS: CYANOCOBALAMIN 500 MCG TAB PO SCH (08:10)
[2021-06-04] MEDS: EZETIMIBE 10 MG TAB PO SCH (08:10)
[2021-06-04] MEDS: MELOXICAM 7.5 MG TAB PO SCH (08:11)
[2021-06-04] MEDS: NYSTATIN 100,000UNIT/GM CREAM 30 GM TUBE TOPICAL SCH (08:22)
[2021-06-04] MEDS: LORATADINE 10 MG TAB PO SCH (08:22)
[2021-06-04] MEDS: METOPROLOL SUCCINATE (ER) 50 MG TAB.ER.24H PO SCH (08:22)
[2021-06-04] MEDS: FLUTICASONE 50MCG/SPRAY NASAL 16GM EA NOSTRIL SCH (10:26)
[2021-06-04] MEDS: CLONIDINE 0.1 MG PO SCH (10:26)
[2021-06-04] MEDS: NON FORMULARY DRUG (Mirabegron [Myrbetriq] 25 MG Tab.Er.24h) PO SCH (10:27)
[2021-06-04] MEDS: TRIAMCINOLONE 0.1% CREAM 80 GM TUBE TOPICAL SCH (10:27)
[2021-06-04] MEDS: NON FORMULARY DRUG (Methenamine Hippurate [Methenamine Hippurate] 1 GM Tablet) PO SCH (10:27)
[2021-06-04 11:38] LABS: Glucose,Whole Blood 144 mg/dL (75-99)
[2021-06-04] MEDS: HYDROcodone/APAP 5-325MG 1 EACH TAB PO PRN (13:56)
--- NOTE | 2021-06-04 14:23 | P.PN ---
Subjective Progress Note Date: 06/04/21 CHIEF COMPLAINT: Right upper quadrant abdominal pain HISTORY OF PRESENT ILLNESS: Surgical service is following regards patient's right upper quadrant abdominal pain. Patient reports that her pain has decr eased since admission. Pain is worse after eating fatty foods. She has avoided eating the fatty foods that are present on her tray. She denies any nausea or vomiting. Her pain is controlled. She's afebrile. PHYSICAL EXAM: VITAL SIGNS: Reviewed GENERAL: Well-developed in no acute distress. HEENT: No sclera icterus. Extraocular movements grossly intact. Moist buccal mucosa. Head is atraumatic, normocephalic. Hears conversational speech. No nasal drainage. NECK: Supple without lymphadenopathy. CHEST: Non-labored respirations and equal bilateral excursions. CARDIOVASCULAR: Palpable 2+ radial pulses. ABDOMEN: Soft. Nondistended. MUSCULOSKELETAL: No clubbing or cyanosis. NEUROLOGIC: No focal or lateralizing signs. Cranial nerves II through XII grossly intact. PSYCH: Appropriate affect. Alert and oriented to person, place and time. SKIN: Well perfused. Good skin turgor. ASSESSMENT: 1. Right upper quadrant abdominal pain with large gallbladder noted on ultrasound. HIDA scan normal 2. Mitochondrial genetic disorder 3. Morbid obesity due to excess calories 4. History of DVTs and pulmonary embolus PLAN: -Recommend outpatient cholecystectomy -Patient is stable for discharge from surgical standpoint -Recommend cardiac risk assessment in the outpatient setting -Recommend that patient is off of her Mobic for 7 days and Xarelto for 2 days prior to surgery. Patient is extremely high risk for surgery with medication such as the Mobic and Xarelto -Continue low-fat diet Physician Back Joiner note has been reviewed by physician. Signing provider agrees with the documented findings, assessment, and plan of care. Objective - Vital Signs Vital signs: Vital Signs Temp 98.4 F 06/04/21 07:28 Pulse 78 06/04/21 07:28 Resp 16 06/04/21 07:28 BP 156/99 06/04/21 07:28 Pulse Ox 98 06/04/21 07:28 Intake & Output 06/03/21 06/04/21 06/04/21 18:59 06:59 18:59 Intake Total 1100 1320 Balance 1100 1320 Weight 122.47 kg Intake: IV 400 Sodium Chloride 0.9% 1, 400 000 ml @ 110 mls/hr IV . Q9H6M JOSE Rx#:[id number] Intake, IV Titration 1320 Amount Sodium Chloride 0.9% 1, 1320 000 ml @ 110 mls/hr IV . Q9H6M JOSE Rx#:[id number] Oral 700 Other: Voiding Method Toilet # Voids 1 - Labs CBC & Chem 7: 06/03/21 05:59 06/03/21 05:59 Labs: Abnormal Lab Results - Last 24 Hours (Table) 06/03/21 06/03/21 06/04/21 Range/Units 17:12 20:19 07:19 POC Glucose (mg/dL) 146 H 212 H 168 H (75-99) mg/dL 06/04/21 Range/Units 11:36 POC Glucose (mg/dL) 144 H (75-99) mg/dL Microbiology - Last 24 Hours (Table) 06/01/21 20:14 Blood Culture - Preliminary Blood No Growth after 48 hours
[2021-06-04 14:44] VITALS: BP 133/81; PULSE 72; RESP 14; TEMP 99.1
[2021-06-04] MEDS: SODIUM CHLORIDE 0.9% 1,000 ML IV SCH (15:11)
--- NOTE | 2021-06-04 15:17 | P.PN ---
Subjective Progress Note Date: 06/04/21 Awaiting last two components of work-up: Anti phospholipid antibodies and Beta 2 glycoprotein, if both negative can be discharged on xarelto. If not Lovenox will be recommended. Objective - Vital Signs Vital signs: Vital Signs Temp 99.1 F 06/04/21 14:00 Pulse 72 06/04/21 14:00 Resp 14 06/04/21 14:00 BP 133/81 06/04/21 14:00 Pulse Ox 96 06/04/21 14:00 Intake & Output 06/03/21 06/04/21 06/04/21 18:59 06:59 18:59 Intake Total 1100 1320 Balance 1100 1320 Weight 122.47 kg Intake: IV 400 Sodium Chloride 0.9% 1, 400 000 ml @ 110 mls/hr IV . Q9H6M JOSE Rx#:[id number] Intake, IV Titration 1320 Amount Sodium Chloride 0.9% 1, 1320 000 ml @ 110 mls/hr IV . Q9H6M JOSE Rx#:[id number] Oral 700 Other: Voiding Method Toilet # Voids 1 - Exam - Constitutional General appearance: cooperative, no acute distress - EENT Eyes: EOMI ENT: NA/AT - Neck distonia - Respiratory Respiratory: bilateral: diminished - Cardiovascular Rhythm: regularly irregular - Gastrointestinal General gastrointestinal: soft - Integumentary Integumentary: pale - Musculoskeletal Musculoskeletal: generalized weakness - Psychiatric Psychiatric: A&O x's 3, appropriate affect - Labs CBC & Chem 7: 06/03/21 05:59 06/03/21 05:59 Labs: Abnormal Lab Results - Last 24 Hours (Table) 06/03/21 06/03/21 06/04/21 Range/Units 17:12 20:19 07:19 POC Glucose (mg/dL) 146 H 212 H 168 H (75-99) mg/dL 06/04/21 Range/Units 11:36 POC Glucose (mg/dL) 144 H (75-99) mg/dL Microbiology - Last 24 Hours (Table) 06/01/21 20:14 Blood Culture - Preliminary Blood No Growth after 48 hours Assessment and Plan (1) CVA (cerebral vascular accident) Current Visit: No Status: Acute Code(s): I63.9 - CEREBRAL INFARCTION, UNSP ECIFIED SNOMED Code(s): 553998749 (2) History of TIA (transient ischemic attack) Current Visit: No Status: Acute Code(s): Z86.73 - PRSNL HX OF TIA (TIA), AND CEREB INFRC W/O RESID DEFICITS SNOMED Code(s): 527799692 (3) MRSA (methicillin resistant staph aureus) culture positive Current Visit: No Status: Acute Code(s): Z22.322 - CARRIER OR SUSPECTED CA RRIER OF METHICILLIN RESIS STAPH SNOMED Code(s): 638037114 (4) Major depressive disorder with psychotic features Current Visit: No Status: Acute Priority: Low Code(s): F32.3 - MAJOR DEPRESSV DISORD, SINGLE EPSD, SEVERE W PSYCH FEATURES SNOMED Code(s): 585492613 (5) History of DVT (deep vein thrombosis) Current Visit: No Status: Chronic Code(s): Z86.718 - PERSONAL HISTORY OF OTHER VENOUS THROMBOSIS AND EMBOLISM SNOMED Code(s): 000564184 Plan: Patient with previous positive lupus anticoagulant which could be a result on anticoagulation. She has taken last DOAC on Tuesday therefore will recheck now. If positive would be best to continue on lovenox versus DOAC given the limited studies on efficacy in this population of patients. awill continue to follow Lupus anticoagulatant studies are pending still, will recheck in am. Further Recommendations to follow Awaiting last two components of work-up: Anti phospholipid antibodies and Beta 2 glycoprotein, if both negative can be discharged on xarelto. If not Lovenox will be recommended. Can follow-up in office to monitor in 8 weeks
--- NOTE | 2021-06-04 22:36 | DS ---
DISCHARGE SUMMARY DATE OF SERVICE: 06/04/2021 FINAL DIAGNOSES: 1. Acute abdominal pain with hydropic gallbladder with possible cholecystitis, present on admission. 2. Negative HIDA scan. 3. History of lactic acidosis, leukocytosis. 4. History of recent sepsis and bacteremia. 5. History of lupus, anticoagulant on lifelong anticoagulation. 6. History of cerebrovascular accident, transient ischemic attack. 7. Diabetes type 2. 8. History of deep vein thrombosis. 9. History of syncope. 10.History of mitochondrial disease workup in [facility]. 11.History of dysautonomia. 12.History of idiopathic intracranial hypertension. 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 14.History of deep vein thrombosis. 15.History of ventricular tachycardia. 16.History of pulmonary microadenoma. 17.History of narcolepsy. 18.History of gastroparesis. 19.History of pernicious anemia. 20.History of polycystic ovarian syndrome. 21.History of bilateral peripheral neuropathy. 22.History of urinary tract infection. 23.History of stress incontinence. 24.History of ESBL. 25.History of MRSA. 26.History of bipolar, depression. 27.Obesity with body mass index of 44.6. 28.FULL CODE. DISCHARGE DISPOSITION: The patient discharged in stable condition with guarded prognosis. Recommend close followup with surgery and primary physician in the outpatient setting. HISTORY OF PRESENT ILLNESS: This 40-year-old woman with past medical history of multiple medical problems was admitted with abdominal pain. The patient had features of hydropic gallbladder. Surgery was consulted. HIDA scan was apparently negative so Dr. Mendez recommended follow up in the outpatient setting, cardiopulmonary clearance prior to surgery. On exam, vitals are stable. Cardiovascular S1, S2. Abdomen soft. All the labs remained normal. At this time, the patient being discharged in stable condition with guarded prognosis with the following advice and medications: 1. Diet is cardiac diet. 2. Activity limited until followup. 3. Follow up with Dr. Montano 2-3 days. 4. Follow up with Dr. Mendez as recommended. 5. Follow up with Cardiology for cardiac clearance on June 15. DISCHARGE MEDICATIONS: 1. Dexamphetamine 10 mg p.o. b.i.d. 2. Cranberry as before. 3. Benadryl as before. 4. Bentyl 20 mg p.o. q.i.d. 5. Buspirone 30 mg p.o. b.i.d. 6. Fioricet as before. 7. CBD oil as before. 8. Claritin 10 mg p.o. daily. 9. Clonidine ER 0.1 mg p.o. b.i.d. 10.Prochlorperazine 25 mg rectally p.r.n. 11.Dexilant 60 mg p.o. daily. 12.Emgality 120 mg subcu t.i.d. as before. 13.Fluticasone 1 spray each nostril. 14.Iron sulfate 320 mg p.o. daily. 15.Kenalog 1 application topically. 16.Lantus 8 units subcu q.h.s. 17.Linzess 145 mg p.o. daily p.r.n. 18.Lioresal 10 mg p.o. daily. 19.Yermo 900 mg q.h.s. 20.Meclizine 12.5 mg t.i.d. p.r.n. 21.Magnesium 1 tablets b.i.d. 22.Clotrimazole as before. 23.Melatonin 10 mg q.h.s. p.r.n. 24.Methenamine 1 g p.o. b.i.d. 25.Mobic 50 mg p.o. 26.Nystatin p.r.n. 27.Myrbetriq 25 mg p.o. daily. 28.NovoLog FlexPen as before. 29.Phenergan 25 mg q.6 p.r.n. 30.Reglan 10 mg q.a.c. and q.h.s. 31.Rexulti 0.5 mg q.h.s. 33.Levothyroxine 100 mcg p.o. daily and 125 mcg p.o. Tuesday, Tuesday, Tuesday, as before. 34.Trazodone 200 mg q.h.s. 35.Tylenol 650 q.6h p.r.n. 36.Ultram p.r.n. 37.Ventolin HFA 1 puff p.r.n. 38.Hydroxyzine 50 mg p.o. 39.Vitamin B12, 1000 mcg p.o. 40.Vitamin C 250 mg p.o. daily. 41.Vitamin D2 50,000 p.o. Tuesday. 42.Zetia 10 mg p.o. daily. 43.Fenofibrate 160 mg p.o. q.h.s. 44.Neurontin 400 mg p.o. t.i.d. 46.Metoprolol 50 mg p.o. daily. 47.Trimethoprim 100 mg q.h.s. 48.Xarelto 20 mg q.h.s. 49.Zofran 8 mg q.6 p.r.n. Once again the patient discharged in stable condition with guarded prognosis. MMODL / IJN: [id number] / MTDD
[2021-06-07] MEDS ORDERED: ERGOCALCIFEROL 1,250 MCG (50,000 IU) CAPSULE PO SCH (09:00)
== END 2021-06-04 16:07 | disposition home or self-care (01) | DRG 445 ==
LOC: EC 15:11 → 6NMEDSUR 17:29 → OBSVTOIN 06-03 08:48
PROVIDERS: ADMIT Hospitalist; ATTEND Hospitalist
DX: K82.1 Hydrops of gallbladder (principal); Z68.41 Body mass index [BMI] 40.0-44.9, adult; Z16.24 Resistance to multiple antibiotics; D68.62 Lupus anticoagulant syndrome; F32.3 Major depressive disorder, single episode, severe with psychotic features; G81.90 Hemiplegia, unspecified affecting unspecified side; E88.40 Mitochondrial metabolism disorder, unspecified; K81.0 Acute cholecystitis; G90.1 Familial dysautonomia [Riley-Day]; Z79.01 Long term (current) use of anticoagulants; Z79.1 Long term (current) use of non-steroidal anti-inflammatories (NSAID); Z79.890 Hormone replacement therapy; Z79.899 Other long term (current) drug therapy; Z82.49 Family history of ischemic heart disease and other diseases of the circulatory system; Z83.3 Family history of diabetes mellitus; Z86.14 Personal history of Methicillin resistant Staphylococcus aureus infection; Z86.19 Personal history of other infectious and parasitic diseases; Z86.711 Personal history of pulmonary embolism; Z86.718 Personal history of other venous thrombosis and embolism; Z86.73 Personal history of transient ischemic attack (TIA), and cerebral infarction without residual deficits; Z86.79 Personal history of other diseases of the circulatory system; Z87.440 Personal history of urinary (tract) infections; E06.3 Autoimmune thyroiditis; I89.0 Lymphedema, not elsewhere classified; E11.41 Type 2 diabetes mellitus with diabetic mononeuropathy; E11.43 Type 2 diabetes mellitus with diabetic autonomic (poly)neuropathy; E66.01 Morbid (severe) obesity due to excess calories; K31.84 Gastroparesis; E28.2 Polycystic ovarian syndrome; N31.9 Neuromuscular dysfunction of bladder, unspecified; G57.93 Unspecified mononeuropathy of bilateral lower limbs; G93.2 Benign intracranial hypertension; I95.1 Orthostatic hypotension; N39.3 Stress incontinence (female) (male); G47.419 Narcolepsy without cataplexy
CPT/HCPCS: 36415; 76705; 78227; 80053; 81003; 81025; 82607; 82728; 82746; 83540; 83550; 83690; 83921; 85025; 85613; 85652; 85730; 85732; 86140; 86146; 86147; 87040; 96374; 99285

== ENCOUNTER → 2021-06-26 | Outpatient (CLI) | payer MEDICARE, OTHER ==
--- NOTE | 2021-06-26 15:54 | NM ---
Nuclear medicine hepatobiliary scan. HISTORY: Pain. COMPARISON: 06/02/2021 DOSAGE: The patient received 2.45 micrograms of CCK and 4.1 mCi of Technetium 99m Choletec. FINDINGS: There is normal hepatic extraction. The gallbladder is nondistended seen with certainty at 60 minutes. There is a area of increased uptake near the dome of the liver which is somewhat atypica l.. There is biliary to bowel clearance by 20 minutes. Ejection fraction is 7%. IMPRESSION: 1. Gallbladder is not seen with certainty at 60 minutes which can be associated with cholecystitis. E jection fraction of 7% is consistent with biliary dyskinesia. Correlate clinically. 2. Unusual area of uptake along the dome of the liver for which either CT scan or ultrasound could be obtained for further evaluation.
== END | disposition home or self-care (01) ==
LOC: RADNMMAIN 12:20
PROVIDERS: ATTEND Surgery Plastic and Reconstructive Surgery
DX: K81.1 Chronic cholecystitis (principal)
CPT/HCPCS: 78227; A9537; J2805

== ENCOUNTER 2021-07-03 07:34 | Day surgery (SDC) | payer MEDICARE, OTHER ==
[2021-07-01 15:10] VITALS: BMI 44.9
[~2021-07-03 07:34] MED LIST changes: +ACETAMINOPHEN TAB 500 MG TAB PO PRN; +DEXAMETHASONE SOD PHOSPHATE 4 MG/ML 1 ML VIAL IV ONE; +HEPARIN SODIUM,PORCINE/PF 5,000 UNIT/0.5 ML SYRINGE SQ PRN; +HYDROmorphone 0.5 MG/0.5 ML SYRINGE IVP PRN; +INDOCYANINE GREEN 25 MG VIAL IV PRN; -IOPAMIDOL-250 50ML BTL IV ONE; +LIDOCAINE 1% (10MG/ML) FOR IV START INTRADERMA PRN; +ONDANSETRON 4 MG/2 ML VIAL IVP ONE; +ceFAZolin 3 GM in SODIUM CHLORIDE 0.9% 100 ML IVPB PRN
[2021-07-03] MEDS ORDERED: GABAPENTIN 400 MG CAP PO PRN (07:36)
--- NOTE | 2021-07-03 07:40 | P.GSHP ---
History of Present Illness H&P Date: 07/03/21 CHIEF COMPLAINT: Cholecystitis HISTORY OF PRESENT ILLNESS: The patient is a 40-year-old female who presents with severe epigastric including right upper quadrant abdominal pain for over one month. She has had multiple hospitalizations for abdominal pain. She underwent diagnostic studies for her gallbladder. She has pre-existing genetic disorder mitochondrial syndrome. She presents with cholecystitis. Now she presents for surgical intervention. PAST MEDICAL HISTORY: Please see list PAST SURGICAL HISTORY: Please see list MEDICATIONS: Please see list ALLERGIES: Please see list SOCIAL HISTORY: Please see list FAMILY HISTORY: Please see list REVIEW OF ORGAN SYSTEMS: CONSTITUTIONAL: No reports of fevers or chills. HEENT: Denies any troubles with hearing. Has troubles with vision. ENDOCRINE: Has hypothyroidism. Has insulin-dependent diabetes. RESPIRATORY: Past history of pulmonary embolisms CARDIOVASCULAR: Past chest pain or palpitations GI: As gastric esophageal reflux disease MUSCULOSKELETAL: Has joint pain including back pain. NEURO: Has generalized weakness. Has chronic pain. Has past stroke. Has neuropathy. PSYCH: Has depression. No current suicidal ideation. GENITOURINARY: Has urinary hesitancy. HEMATOLOGIC: Has personal or family history of DVTs or pulmonary emboli. SKIN: No skin cancer. PHYSICAL EXAM: VITAL SIGNS: Reviewed Afebrile vital signs stable GENERAL: Well-developed pleasant in no acute distress. HEENT: No scleral icterus. Extraocular movements grossly intact. Moist buccal mucosa. NECK: Supple without lymphadenopathy. CHEST: Unlabored respirations. Equal bilateral excursions. CARDIOVASCULAR: Regular rate regular rhythm rhythm. Distal 2+ pulses. ABDOMEN: Soft, nondistended. Tender along the epigastrium and right upper quadrant. MUSCULOSKELETAL: No clubbing, cyanosis, or edema. NEURO: Cranial nerves II to XII within normal limits. No focal or lateralizing signs. PSYCH: Alert and oriented to person, place and time. SKIN: Well-perfused good skin turgor. ASSESSMENT: 1. Cholecystitis 2. Mitochondrial disorder 3. Morbid obesity due to excess calories, BMI 44.9 PLAN: 1. Will need a robotic cholecystectomy possible open. Benefits and risks were described. 2. Heparin for DVT prophylaxis 5000 units. 3. Antibiotic prophylaxis. 4. She is extremely high risk for myocardial disorder, pre-existing history of hypercoagulable state. Past Medical History Past Medical History: CVA/TIA, Diabetes Mellitus, Deep Vein Thrombosis (DVT), Neurologic Disorder, Syncope, Thyroid Disorder Additional Past Medical History / Comment(s): port a cath rt chest , STROKE LIKE EPISODE D/T MITOCHRONDIAL DISEASE HAD WORK UP DONE AT [facility]. Dysautonomia, idiopathic intracranial HTN, lupus/ per pt last LUPUS ANTICOAGULANTS antiphosolipid test 06/10 neg., ana maria's disease, lymphedema Lt arm d/t DVTs,avoid use of lt arm for b/p,iv,blood draws, v-tach, pituitary microadenoma. patent foramen ovale, narcolepsy, gastropareis, HX orthostatic hypotension/syncope, migraines with hemiplegia, pernicious anemia, polycystic ovarian syndrome, neuropathy bilateral legs/feet - mild, uti's. neurogenic bladder, stress incontinence, uses wheelchair, able to transfer and walk few steps History of Any Multi-Drug Resistant Organisms: ESBL, MRSA Date of last positivie culture/infection: 03/09/17 MRSA/ 05/17/18 ESBL MDRO Source:: MRSA LEFT ARM,/ESBL URINE ECOLI Past Surgical History: Uterine Ablation Additional Past Surgical History / Comment(s): colonscopy/egd, angie, PORT-A -CATH INSERTION, Past Anesthesia/Blood Transfusion Reactions: Previous Problems w/ Anesthesia Additional Past Anesthesia/Blood Transfusion Reaction / Comment(s): patient states "It takes a lot of anesthesia for my body to react". Pt has received blood in past without reaction. pt has met with anesthesia-will bring in a summary page for anesthesia r/t mitochondrial disease Past Psychological History: Bipolar, Depression Additional Psychological History / Comment(s): . Smoking Status: Never smoker Past Alcohol Use History: None Reported Additional Past Alcohol Use History / Comment(s): . Past Drug Use History: None Reported - Past Family History Brother(s) Family Medical History: Diabetes Mellitus, Hyperlipidemia, Hypertension Additional Family Medical History / Comment(s): Patient states she has 1 brother with no major medical problems. Father Family Medical History: Diabetes Mellitus, Hyperlipidemia, Hypertension Additional Family Medical History / Comment(s): DAD IS 70 YEARS OLD. Patient states she does not have any contact with her father and does not know his medical history. Mother Family Medical History: CVA/TIA, Deep Vein Thrombosis (DVT) Additional Family Medical History / Comment(s): antiphospholipid antibody syndrome lupus dementia Medications and Allergies Home Medications Medication Instructions Recorded Confirmed Type Levothyroxine Sodium [Synthroid] 100 mcg PO SUFRSA 01/16/19 07/01/21 History modafiniL [Provigil] 200 mg PO DAILY tab 03/07/19 07/01/21 Rx traMADol HCL [Ultram] 50 mg PO BID PRN 06/28/19 07/01/21 History Methenamine Hippurate 1 gm PO BID 07/12/19 07/01/21 History Ergocalciferol [Vitamin D2 50,000 unit PO TAYLOR 10/08/19 07/01/21 History (DRISDOL)] Insulin Aspart [NovoLOG Flexpen] See Protocol SQ ACHS 10/08/19 07/01/21 History Mirabegron [Myrbetriq] 25 mg PO DAILY 10/08/19 07/01/21 History Fenofibrate [Lofibra] 160 mg PO HS tab 10/17/19 07/01/21 Rx Gabapentin [Neurontin] 400 mg PO TID cap 10/17/19 07/01/21 Rx Metoprolol Succinate (ER) [Toprol 50 mg PO DAILY tab.er.24h 10/17/19 07/01/21 Rx XL] Ondansetron [Zofran] 8 mg PO Q6H PRN tab 10/17/19 07/01/21 Rx Rivaroxaban [Xarelto] 20 mg PO HS tab 10/17/19 07/01/21 Rx Trimethoprim [Trimpex] 100 mg PO HS tab 10/17/19 07/01/21 Rx Acetaminophen Tab [Tylenol] 650 mg PO Q6H PRN 11/29/19 07/01/21 History [place] Carbonate 900 mg PO HS 11/29/19 07/01/21 History Prochlorperazine Suppository 25 mg RECTAL Q8H PRN 11/29/19 07/01/21 History [Compazine] Promethazine [Phenergan] 25 mg PO Q6H PRN 11/30/19 07/01/21 History Levothyroxine Sodium [Synthroid] 225 mcg PO MOTUWETH 12/28/19 07/01/21 History Albuterol Inhaler [Ventolin Hfa 1 puff INHALATION RT-Q4H PRN 09/19/20 07/01/21 History Inhaler] Butalbital/Aspirin/Caffeine 1 tab PO Q4H PRN 09/19/20 07/01/21 History [Akhybu-Xzdcxbt-Ypnxugyk 50-325-40 mg] Clonidine Er 0.1mg 0.1 mg PO BID 09/19/20 07/01/21 History Dexlansoprazole [Dexilant] 60 mg PO DAILY 09/19/20 07/01/21 History Dicyclomine [Bentyl] 20 mg PO QID PRN 09/19/20 07/01/21 History Galcanezumab-Gnlm [Emgality Pen] 120 mg SQ Q30D 09/19/20 07/01/21 History Insulin Glargine,Hum.rec.anlog 80 unit SQ DAILY 09/19/20 07/01/21 History [Lantus Solostar] Linaclotide [Linzess] 145 mcg PO DAILY PRN 09/19/20 07/01/21 History Meloxicam [Mobic] 15 mg PO DAILY 09/19/20 07/01/21 History Rizatriptan Benzoate [Rizatriptan] 5 mg PO BID PRN 09/19/20 07/01/21 History Sodium Chloride 0.9% Iv 500 ml IV DAILY 09/19/20 07/01/21 History Metoclopramide HCl [Reglan] 10 mg PO ACHS 01/03/21 07/01/21 History Brexpiprazole [Rexulti] 0.5 mg PO HS 06/01/21 07/01/21 History Cyanocobalamin (Vitamin B-12) 1,000 mcg PO DAILY 06/01/21 07/01/21 History [Vitamin B-12] Dextroamphetamine/Amphetamine 10 mg PO BID 06/01/21 07/01/21 History [Adderall] Ezetimibe [Zetia] 10 mg PO DAILY 06/01/21 07/01/21 History Fluticasone Nasal [place] [Flonase 1 spray EA NOSTRIL DAILY 06/01/21 07/01/21 History Nasal [place]] Loratadine [Claritin] 10 mg PO DAILY 06/01/21 07/01/21 History Meclizine HCl 12.5 mg PO TID PRN 06/01/21 07/01/21 History Melatonin 10 mg PO HS PRN 06/01/21 07/01/21 History busPIRone HCL 30 mg PO BID 06/01/21 07/01/21 History diphenhydrAMINE HCL [Benadryl] 25 mg PO DAILY PRN 06/01/21 07/01/21 History Baclofen [Lioresal] 20 mg PO Q12HR PRN 06/02/21 07/01/21 History hydrOXYzine pamoate [Vistaril] 100 mg PO HS 06/02/21 07/01/21 History HYDROcodone/APAP 5-325MG [[place] 1 tab PO Q6HR PRN 3 Days #12 tab 06/04/21 07/01/21 Rx 5-325] Allergies Allergy/AdvReac Type Severity Reaction Status Date / Time peanut oil Allergy Severe Nausea & Verified 07/01/21 14:50 Vomiting,itching barium sulfate Allergy Anaphylaxis Verified 07/01/21 14:50 doxepin [Doxepin] Allergy Anaphylaxis Verified 07/01/21 14:50 ephedrine Allergy Chest Verified 07/01/21 14:50 Pain/tachycardia ertapenem [From Invanz] Allergy Rash/Hives Verified 07/01/21 14:50 influenza virus vaccine, Allergy severe Verified 07/01/21 14:50 specific swelling [Influenza Virus and hives Vacc,Specific] peanut Allergy Nausea & Verified 07/01/21 14:50 Vomiting/itching pseudoephedrine Allergy Chest Pain Verified 07/01/21 14:50 doxycycline AdvReac Nausea & Verified 07/01/21 14:50 Vomiting & Diarrhea Pertussis Vaccines AdvReac fever/seizu Verified 07/01/21 14:50 re pseudoephedrine HCl AdvReac chest Verified 07/01/21 14:50 [From Sudafed] pain/tachycardia sulfamethoxazole AdvReac Nausea & Verified 07/01/21 14:50 [From Bactrim] Vomiting trimethoprim [From Bactrim] AdvReac Nausea & Verified 07/01/21 14:50 Vomiting
[2021-07-03 08:19] LABS: Glucose,Whole Blood 155 mg/dL (75-99)
[2021-07-03] MEDS ORDERED: SODIUM CHLORIDE 0.9% 1,000 ML IV ONE (08:26)
[2021-07-03] MEDS ORDERED: SCOPOLAMINE 1.5MG/72HR PATCH TRANSDERM ONE (08:27)
[2021-07-03] MEDS ORDERED: DEXMEDETOMIDINE/0.9% NACL(PMX) 400 MCG in EMPTY BAG 1 BAG IV ONE (08:30)
[2021-07-03] MEDS ORDERED: ROCURONIUM 10 MG/ML (5 ML VIAL) IV ONE (09:37)
[2021-07-03] MEDS ORDERED: SUGAMMADEX SODIUM 500 MG/5 ML SDV IV ONE (09:37)
[2021-07-03] MEDS ORDERED: fentaNYL (PF) 50 MCG/ML 2 ML AMP ONE (09:37)
[2021-07-03] MEDS ORDERED: DEXMEDETOMIDINE/0.9% NACL(PMX) 400 MCG/100 ML IV ONE (09:37)
[2021-07-03] MEDS ORDERED: KETAMINE 10 MG/ML 20 ML VIAL ONE (09:37)
[2021-07-03] MEDS ORDERED: MIDAZOLAM 2 MG/2 ML VIAL ONE (09:37)
[2021-07-03] MEDS ORDERED: LIDOCAINE 1%-EPI 1:100,000 20 ML VIAL SQ ONE ×2 (10:23→10:25)
[2021-07-03] MEDS ORDERED: NALOXONE 0.4 MG/ML 1 ML VIAL IV PRN (11:10)
[2021-07-03] MEDS ORDERED: ONDANSETRON 4 MG/2 ML VIAL IVP PRN (11:10)
[2021-07-03] MEDS ORDERED: BACLOFEN 10 MG TAB PO PRN (11:13)
[2021-07-03] MEDS ORDERED: ALBUTEROL NEBULIZED 2.5 MG/3 ML INHALATION PRN (11:13)
[2021-07-03] MEDS ORDERED: DICYCLOMINE 20 MG TAB PO PRN (11:13)
[2021-07-03] MEDS ORDERED: NON FORMULARY DRUG (Butalbital/Aspirin/Caffeine [Butalb-Aspirin-Caffeine 50-325-40 Mg] 1 E PO PRN (11:13)
[2021-07-03] MEDS ORDERED: HYDROcodone/APAP 5-325MG 1 EACH TAB PO PRN (11:13)
[2021-07-03] MEDS ORDERED: ACETAMINOPHEN TAB 325 MG TAB PO PRN (11:13)
[2021-07-03] MEDS ORDERED: diphenhydrAMINE 25 MG CAP PO PRN (11:13)
[2021-07-03] MEDS ORDERED: SUMAtriptan succinate 50 MG TAB PO PRN (11:15)
[2021-07-03] MEDS ORDERED: NON FORMULARY DRUG (Linaclotide [Linzess] 145 MCG Capsule) PO PRN (11:15)
[2021-07-03] MEDS ORDERED: PROCHLORPERAZINE SUPPOSITORY 25 MG SUPP RECTAL PRN (11:15)
[2021-07-03] MEDS ORDERED: traMADol 50 MG TAB PO PRN (11:15)
[2021-07-03] MEDS ORDERED: MELATONIN 5 MG TABLET PO PRN (11:15)
[2021-07-03] MEDS ORDERED: NON FORMULARY DRUG (Galcanezumab-Gnlm [Emgality Pen] 120 MG/ML Pen.Injctr) SQ SCH (11:15)
[2021-07-03] MEDS ORDERED: MECLIZINE 12.5 MG TAB PO PRN (11:15)
[2021-07-03] MEDS ORDERED: PROMETHAZINE 25 MG TAB PO PRN (11:15)
[2021-07-03 11:34] LABS: Glucose,Whole Blood 246 mg/dL (75-99)
[2021-07-03] MEDS ORDERED: INSULIN ASPART (NovoLOG) 100 UNIT/ML VIAL SQ ONE (11:46)
--- NOTE | 2021-07-03 11:46 | P.OP ---
Date of Procedure: 07/03/21 Description of Procedure: SURGEON: PAM COREY MD PREOPERATIVE DIAGNOSES: 1. Chronic cholecystitis 2. Intractable right upper quadrant and epigastric abdominal pain 3. Mitochondrial syndrome 4. Bipolar disorder 5. Depressive disorder 6. Morbid obesity due to excess calories 7. Diabetes type 2, insulin-dependent 8. Hypothyroidism with Emily's disease 9. Chronic pain disorder 10. 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 History of deep venous thrombosis 12. History of pulmonary embolism 13. Multiple drug ALLERGIES 14. Chronic anticoagulant therapy 15. Hyperlipidemia 16. History of CVA 17. Idiopathic intracranial hypertension 18. Dysautonomia 19. Lupus 20. Pituitary microadenoma 21. Migraines with hemiplegia 22. Pernicious anemia 23. Polycystic ovarian syndrome 24. Bilateral neuropathy 25. Neurogenic bladder 26. History of MRSA 27. History of ESBL 28. Wheelchair bound POSTOPERATIVE DIAGNOSES: 1. Chronic cholecystitis 2. Intractable right upper quadrant and epigastric abdominal pain 3. Mitochondrial syndrome 4. Bipolar disorder 5. Depressive disorder 6. Morbid obesity due to excess calories 7. Diabetes type 2, insulin-dependent 8. Hypothyroidism with Emily's disease 9. Chronic pain disorder 10. 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 History of deep venous thrombosis 12. History of pulmonary embolism 13. Multiple drug ALLERGIES 14. Chronic anticoagulant therapy 15. Hyperlipidemia 16. History of CVA 17. Idiopathic intracranial hypertension 18. Dysautonomia 19. Lupus 20. Pituitary microadenoma 21. Migraines with hemiplegia 22. Pernicious anemia 23. Polycystic ovarian syndrome 24. Bilateral neuropathy 25. Neurogenic bladder 26. History of MRSA 27. History of ESBL 28. Wheelchair bound 29. Biliary dyskinesia 30. Fatty liver disease with hepatomegaly OPERATION: Robotic-assisted da Aris Xi laparoscopic cholecystectomy, multiport with FIREFLY ESTIMATED BLOOD LOSS: 5 mL. SPECIMENS REMOVED: Gallbladder. COMPLICATIONS: None. OPERATIVE FINDINGS: 1. Moderate to severe hepatomegaly with fatty liver disease INDICATIONS: The patient is a 40-year-old female with multiple comorbidities including multiple drug ALLERGIES to person up with intractable right upper quadrant abdominal pain. Diagnostic studies demonstrated chronic cholecystitis including biliary dyskinesia. The pre-existing history of myocardial disorder, patient deemed extremely high risk. Preanesthesia consultation was obtained for special protocol due to her mitochondrial condition. Robotic assisted laparoscopic approach was described. Benefits and risks of the procedure including but not limited to bleeding, infection, injury to the biliary tree was described. Informed consent was obtained. DESCRIPTION OF PROCEDURE: Patient was brought to the operating room, placed in supine position. After general induction, the abdomen had been prepped and draped in standard sterile fashion. The robotic da Aris XI system was primed. After a timeout protocol was performed, the patient had been prepped and draped in standard sterile fashion. The patient was injected with indocyanine green. A 5 mm 0 degrees laparoscopic trocar entry was performed along the left upper quadrant. The abdomen insufflated to 15 mmHg pressure which was tolerated well. Diagnostic laparoscopy demonstrated no injury to bowel viscera or mesentery. Moderate severe fatty liver disease with hepatomegaly was identified. Next, two 8 mm robotic ports were placed along the right upper abdomen. The camera 8-mm port was maintained along the epigastrium. Another 8 mm port was placed along the left upper abdominal wall after exchanging the 5 mm port. Please note that the ports were placed at least 10 to 15 cm away from the target anatomy of the gallbladder. The robot was docked along the left lateral abdomen. The patient was repositioned in reverse Trendelenburg position. Using a grasper for arm 3, a grasper for arm 4, including hook cautery for arm 1, the robotic system was docked and primed as described. Instruments were interchanged by the assistant inventory manager including hook cautery, Bovie cautery and clip appliers. I had sat at the console. Next attention was brought to the infundibulum and cystic structures. The infundibulum and cystic duct were dissected free from surrounding tissues. The cystic duct was isolated. FIREFLY was used to identify the cystic artery and cystic structures. A critical view of safety was obtained. Large PLASTIC clips were used throughout the entire case. Using a clip editor managing director, 2 clips were placed at the junction of the infundibulum and cystic duct. The cystic duct was divided between clips. Next, the cystic artery was similarly clipped and cauterized. Electro-Bovie cautery was used to remove the gallbladder from the hepatic fossa. Hemostasis was checked and found to be adequate. The robot was undocked. I re-scrubbed into the case. Using a 10 mm Endo Catch bag via the left upper quadrant incision, the specimen was removed from the abdominal cavity. All pneumoperitoneum instruments were evacuated from the abdominal cavity. The incisions were reapproximated using 4-0 Monocryl in an interrupted subcuticular fashion. Fascial defects were less than 8 mm in size. Please note along the trocar sites, local anesthetic was placed as a field block prior to insertion of all instruments. Liquid glue was applied to the skin. At the end of the procedure needle, sponge, and instrument count had been verified correct by the surgical supplies sterilizer. The patient was transferred to postanesthesia care unit in stable condition. Intraoperative films were shared with the patient's family.
[2021-07-03] MEDS ORDERED: SODIUM CHLORIDE 0.9% 500 ML IV ONE (11:47)
[2021-07-03] MEDS: KETOROLAC 15 MG/ML 1 ML VIAL IVP SCH ×3 (13:22→23:52)
[2021-07-03] MEDS: SODIUM CHLORIDE 0.9% 1,000 ML IV SCH ×2 (13:23→20:25)
[2021-07-03] MEDS: METOCLOPRAMIDE 10 MG TAB PO SCH ×3 (13:23→20:26)
[2021-07-03] MEDS ORDERED: ACETAMINOPHEN IV (For NPO) 1,000 MG in EMPTY BAG 1 BAG IVPB ONE (14:30)
[2021-07-03] MEDS: LACTATED RINGERS 1,000 ML IV SCH (16:19)
[2021-07-03] MEDS: GABAPENTIN 400 MG CAP PO SCH ×2 (16:40→20:26)
[2021-07-03 16:41] LABS: Glucose,Whole Blood 176 mg/dL (75-99)
[2021-07-03] MEDS: INSULIN ASPART (NovoLOG) 100 UNIT/ML VIAL SQ SCH ×2 (18:07→20:26)
[2021-07-03 20:05] LABS: Glucose,Whole Blood 164 mg/dL (75-99)
[2021-07-03] MEDS: busPIRone HCl 10 MG TAB PO SCH (20:26)
[2021-07-03] MEDS: NON FORMULARY DRUG (Methenamine Hippurate [Methenamine Hippurate] 1 GM Tablet) PO SCH (20:27)
[2021-07-03] MEDS: CLONIDINE 0.1 MG PO SCH (20:27)
[2021-07-03] MEDS ORDERED: FENOFIBRATE 160 MG TAB PO SCH (21:00)
[2021-07-03] MEDS ORDERED: hydrOXYzine pamoate 25 MG CAP PO SCH (21:00)
[2021-07-03] MEDS ORDERED: LITHIUM CARBONATE 300 MG CAP PO SCH (21:00)
[2021-07-03] MEDS ORDERED: NON FORMULARY DRUG (Dextroamphetamine/Amphetamine [Adderall] 10 MG Tablet) PO SCH (21:00)
[2021-07-03] MEDS ORDERED: TRIMETHOPRIM 100 MG TAB PO SCH (21:00)
[2021-07-03] MEDS ORDERED: NON FORMULARY DRUG (Brexpiprazole [Rexulti] 0.5 MG Tablet) PO SCH (21:00)
[2021-07-04] MEDS: KETOROLAC 15 MG/ML 1 ML VIAL IVP SCH ×2 (05:52→12:12)
[2021-07-04] MEDS ORDERED: LEVOTHYROXINE 100 MCG TAB PO SCH (06:30)
[2021-07-04] MEDS ORDERED: INSULIN DETEMIR (LEVEMIR) 100 UNIT/ML SYR SQ SCH (07:00)
[2021-07-04] MEDS: INSULIN ASPART (NovoLOG) 100 UNIT/ML VIAL SQ SCH ×2 (07:00→12:12)
[2021-07-04 07:14] LABS: Glucose,Whole Blood 107 mg/dL (75-99)
[2021-07-04] MEDS ORDERED: PANTOPRAZOLE 40 MG TABLET PO SCH (07:30)
[2021-07-04] MEDS: LACTATED RINGERS 1,000 ML IV SCH (07:58)
[2021-07-04] MEDS: GABAPENTIN 400 MG CAP PO SCH (08:04)
[2021-07-04] MEDS: busPIRone HCl 10 MG TAB PO SCH (08:04)
[2021-07-04] MEDS: METOCLOPRAMIDE 10 MG TAB PO SCH ×2 (08:06→12:13)
[2021-07-04 08:59] LABS: ALT 28 U/L (4-34); AST 42 U/L (14-36); African American GFR (CKD) >90 (>60 ml/min/1.73 sqM); Albumin 3.6 g/dL (3.5-5.0); Albumin/Globulin Ratio 1.5; Alkaline Phosphatase 52 U/L (38-126); Anion Gap 10 mmol/L; Blood Urea Nitrogen 11 mg/dL (7-17); Calcium 9.3 mg/dL (8.4-10.2); Carbon Dioxide 18 mmol/L (22-30); Chloride 110 mmol/L (98-107); Globulin 2.4 g/dL; Glucose 117 mg/dL (74-99); Non-African American GFR(CKD) >90 (>60 ml/min/1.73 sqM); Potassium 3.8 mmol/L (3.5-5.1); Sodium 138 mmol/L (137-145); Total Bilirubin 0.3 mg/dL (0.2-1.3)
[2021-07-04] MEDS ORDERED: NON FORMULARY DRUG (Mirabegron [Myrbetriq] 25 MG Tab.Er.24h) PO SCH (09:00)
[2021-07-04] MEDS ORDERED: LORATADINE 10 MG TAB PO SCH (09:00)
[2021-07-04] MEDS ORDERED: ENOXAPARIN 40 MG/0.4 ML SYRINGE SQ SCH (09:00)
[2021-07-04] MEDS ORDERED: EZETIMIBE 10 MG TAB PO SCH (09:00)
[2021-07-04] MEDS ORDERED: FLUTICASONE 50MCG/SPRAY NASAL 16GM EA NOSTRIL SCH (09:00)
[2021-07-04] MEDS ORDERED: CYANOCOBALAMIN 500 MCG TAB PO SCH (09:00)
[2021-07-04] MEDS ORDERED: METOPROLOL SUCCINATE (ER) 50 MG TAB.ER.24H PO SCH (09:00)
[2021-07-04 11:31] LABS: Glucose,Whole Blood 156 mg/dL (75-99)
[2021-07-04 11:52] LABS: Basophils % (A) 0 %; Eosinophils # (A) 0.2 k/uL (0-0.7); Eosinophils % (A) 2 %; HCT 36.7 % (34.0-46.0); HGB 11.6 gm/dL (11.4-16.0); Lymphocytes # (A) 1.7 k/uL (1.0-4.8); Lymphocytes % (A) 15 %; MCH 29.3 pg (25.0-35.0); MCHC 31.7 g/dL (31.0-37.0); MCV 92.5 fL (80.0-100.0); Mean Platelet Volume 9.1; Monocytes # (A) 0.8 k/uL (0-1.0); Monocytes % (A) 7 %; Neutrophils # (A) 8.8 k/uL (1.3-7.7); Neutrophils % (A) 75 %; Platelet Count 329 k/uL (150-450); RBC 3.97 m/uL (3.80-5.40); RDW 13.5 % (11.5-15.5); WBC 11.6 k/uL (3.8-10.6)
[2021-07-04] MEDS: SODIUM CHLORIDE 0.9% 1,000 ML IV SCH ×2 (11:54→12:08)
[2021-07-04] MEDS: CLONIDINE 0.1 MG PO SCH (11:55)
[2021-07-04] MEDS: NON FORMULARY DRUG (Methenamine Hippurate [Methenamine Hippurate] 1 GM Tablet) PO SCH (11:55)
--- NOTE | 2021-07-04 12:10 | P.PN ---
Subjective Progress Note Date: 07/04/21 CHIEF COMPLAINT: Cholecystitis HISTORY OF PRESENT ILLNESS: The patient is a 40-year-old female status post cholecystectomy for cholecystitis. She reports her pain is tolerable. Right upper quadrant abdominal pain now resolved. She has multiple medical comorbidities include mitochondrial disorder. She feels well hydrated. ROS: No reports of nausea and vomiting. No bowel movements. No fevers or chills. No new chest pain. No productive sputum. BMI 43.7. Morbid obesity PHYSICAL EXAM: VITAL SIGNS: Reviewed CONSTITUTIONAL: Well developed and in no acute distress. EYES: Conjuctivae without sclera icterus. Extraocular movements grossly intact. HEAD, EARS, NOSE, THROAT: Moist buccal mucosa. Head is atraumatic, normocephalic. Hears conversational speech. No nasal drainage. NECK: No gross thyroidomegaly. No jugular venous distention. RESPIRATORY: Non-labored respirations and equal bilateral excursions. CARDIOVASCULAR: Palpable 2+ radial pulses. ABDOMEN: Incisions clean dry and intact. Soft. No peritonitis. MUSCULOSKELETAL: No gross deformity of the lower extremities noted. No clubbing. No cyanosis. SKIN: Good skin turgor. Well perfused. NEUROLOGIC: Cranial nerves II through XII grossly intact. No focal or lateralizing signs. PSYCH: Appropriate affect. Alert and oriented to person, place and time. CLINICAL LABS: Reviewed. Total bilirubin within normal limits. LFTs within normal limits ASSESSMENT: 1. Cholecystitis PLAN: 1. A stat CBC prior to start of anticoagulant therapy 2. Anticipated disposition pending labs and start of anticoagulation therapy ADDENDUM: Hgb 11.6, stable without signs of bleeding. May resume blood thinners starting tomorrow. Objective - Vital Signs Vital signs: Vital Signs Temp 98.6 F 07/04/21 07:34 Pulse 78 07/04/21 07:34 Resp 18 07/04/21 07:34 BP 119/77 07/04/21 07:34 Pulse Ox 98 07/04/21 07:34 Intake & Output 07/03/21 07/04/21 07/04/21 18:59 06:59 18:59 Intake Total 2310 Output Total 5 Balance 2305 Weight 119 kg Intake: IV 1050 Intake, IV Titration 780 Amount Sodium Chloride 0.9% 1, 780 000 ml @ 130 mls/hr IV . Q7H42M [facility] Rx#:[id number] Oral 480 Output: Estimated Blood Loss 5 Other: Voiding Method Bedside Commode # Voids 2 1 - Labs CBC & Chem 7: 07/04/21 07:57 07/04/21 07:57 Labs: Abnormal Lab Results - Last 24 Hours (Table) 07/03/21 07/03/21 07/03/21 Range/Units 11:32 16:39 20:03 Chloride (98-107) mmol/L Carbon Dioxide (22-30) mmol/L Glucose (74-99) mg/dL POC Glucose (mg/dL) 246 H 176 H 164 H (75-99) mg/dL AST (14-36) U/L Total Protein (6.3-8.2) g/dL 07/04/21 07/04/21 Range/Units 07:09 07:57 Chloride 110 H (98-107) mmol/L Carbon Dioxide 18 L (22-30) mmol/L Glucose 117 H (74-99) mg/dL POC Glucose (mg/dL) 107 H (75-99) mg/dL AST 42 H (14-36) U/L Total Protein 6.0 L (6.3-8.2) g/dL
--- NOTE | 2021-07-04 12:12 | P.DS ---
Providers Date of admission: 07/03/21 Expected date of discharge: 07/04/21 Attending physician: Leslie Mendez Consults: 07/03/21 07:32 Consult Physician Routine Consulting Provider: [facility] Consult Reason/Comments: Mitochondrial syndrome Do you want consulting provider notified?: Yes Primary care physician: Julissa Montano - Discharge Diagnosis(es) (1) Cholecystitis Current Visit: Yes Status: Acute Hospital Course: POSTOPERATIVE DIAGNOSES: 1. Chronic cholecystitis 2. Intractable right upper quadrant and epigastric abdominal pain 3. Mitochondrial syndrome 4. Bipolar disorder 5. Depressive disorder 6. Morbid obesity due to excess calories 7. Diabetes type 2, insulin-dependent 8. Hypothyroidism with Emily's disease 9. Chronic pain disorder 10. 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 History of deep venous thrombosis 12. History of pulmonary embolism 13. Multiple drug ALLERGIES 14. Chronic anticoagulant therapy 15. Hyperlipidemia 16. History of CVA 17. Idiopathic intracranial hypertension 18. Dysautonomia 19. Lupus 20. Pituitary microadenoma 21. Migraines with hemiplegia 22. Pernicious anemia 23. Polycystic ovarian syndrome 24. Bilateral neuropathy 25. Neurogenic bladder 26. History of MRSA 27. History of ESBL 28. Wheelchair bound 29. Biliary dyskinesia 30. Fatty liver disease with hepatomegaly COURSE: The patient is a 40-year-old female status post cholecystectomy for cholecystitis. She reports her pain is tolerable. Right upper quadrant abdominal pain now resolved. She has multiple medical comorbidities include mitochondrial disorder. She feels well hydrated. ROS: No reports of nausea and vomiting. No bowel movements. No fevers or chills. No new chest pain. No productive sputum. BMI 43.7. Morbid obesity PHYSICAL EXAM: VITAL SIGNS: Reviewed CONSTITUTIONAL: Well developed and in no acute distress. EYES: Conjuctivae without sclera icterus. Extraocular movements grossly intact. HEAD, EARS, NOSE, THROAT: Moist buccal mucosa. Head is atraumatic, normocephalic. Hears conversational speech. No nasal drainage. NECK: No gross thyroidomegaly. No jugular venous distention. RESPIRATORY: Non-labored respirations and equal bilateral excursions. CARDIOVASCULAR: Palpable 2+ radial pulses. ABDOMEN: Incisions clean dry and intact. Soft. No peritonitis. MUSCULOSKELETAL: No gross deformity of the lower extremities noted. No clubbing. No cyanosis. SKIN: Good skin turgor. Well perfused. NEUROLOGIC: Cranial nerves II through XII grossly intact. No focal or lateralizing signs. PSYCH: Appropriate affect. Alert and oriented to person, place and time. CLINICAL LABS: Reviewed. Total bilirubin within normal limits. LFTs within normal limits ASSESSMENT: 1. Cholecystitis PLAN: 1. A stat CBC prior to start of anticoagulant therapy 2. Anticipated disposition pending labs and start of anticoagulation therapy ADDENDUM: Hgb 11.6, stable without signs of bleeding. May resume blood thinners starting tomorrow. Procedures: OPERATION: Robotic-assisted da Aris Xi laparoscopic cholecystectomy, multiport with FIREFLY ESTIMATED BLOOD LOSS: 5 mL. SPECIMENS REMOVED: Gallbladder. COMPLICATIONS: None. OPERATIVE FINDINGS: 1. Moderate to severe hepatomegaly with fatty liver disease Patient Condition at Discharge: Stable Plan - Discharge Summary Discharge Rx Participant: Yes New Discharge Prescriptions: Continue Levothyroxine Sodium [Synthroid] 100 mcg PO SUFRSA modafiniL [Provigil] 200 mg PO DAILY tab traMADol HCL [Ultram] 50 mg PO BID PRN PRN Reason: Mild To Moderate Pain Methenamine Hippurate 1 gm PO BID Mirabegron [Myrbetriq] 25 mg PO DAILY Insulin Aspart [NovoLOG Flexpen] See Protocol SQ ACHS Ergocalciferol [Vitamin D2 (DRISDOL)] 50,000 unit PO TAYLOR Fenofibrate [Lofibra] 160 mg PO HS tab Gabapentin [Neurontin] 400 mg PO TID cap Metoprolol Succinate (ER) [Toprol XL] 50 mg PO DAILY tab.er.24h Trimethoprim [Trimpex] 100 mg PO HS tab Rivaroxaban [Xarelto] 20 mg PO HS tab Ondansetron [Zofran] 8 mg PO Q6H PRN tab PRN Reason: Nausea Acetaminophen Tab [Tylenol] 650 mg PO Q6H PRN PRN Reason: Fever And/ Or Pain Prochlorperazine Suppository [Compazine] 25 mg RECTAL Q8H PRN PRN Reason: Nausea Promethazine [Phenergan] 25 mg PO Q6H PRN PRN Reason: Nausea [place] Carbonate 900 mg PO HS Levothyroxine Sodium [Synthroid] 225 mcg PO MOTUWETH Albuterol Inhaler [Ventolin Hfa Inhaler] 1 puff INHALATION RT-Q4H PRN PRN Reason: Shortness Of Breath Dicyclomine [Bentyl] 20 mg PO QID PRN PRN Reason: gi symptoms Clonidine Er 0.1mg 0.1 mg PO BID Butalbital/Aspirin/Caffeine [Abkdfq-Ymlyyim-Jjpvopgu 50-325-40 mg] 1 tab PO Q4H PRN PRN Reason: Migraine Headache Dexlansoprazole [Dexilant] 60 mg PO DAILY Galcanezumab-Gnlm [Emgality Pen] 120 mg SQ Q30D Insulin Glargine,Hum.rec.anlog [Lantus Solostar] 80 unit SQ DAILY Linaclotide [Linzess] 145 mcg PO DAILY PRN PRN Reason: Constipation OR IBS Meloxicam [Mobic] 15 mg PO DAILY Rizatriptan Benzoate [Rizatriptan] 5 mg PO BID PRN PRN Reason: Migraine Headache Sodium Chloride 0.9% Iv 500 ml IV DAILY Metoclopramide HCl [Reglan] 10 mg PO ACHS Loratadine [Claritin] 10 mg PO DAILY Meclizine HCl 12.5 mg PO TID PRN PRN Reason: DIZZINESS/NAUSEA Brexpiprazole [Rexulti] 0.5 mg PO HS Baclofen [Lioresal] 20 mg PO Q12HR PRN PRN Reason: Pain hydrOXYzine pamoate [Vistaril] 100 mg PO HS Ezetimibe [Zetia] 10 mg PO DAILY Cyanocobalamin (Vitamin B-12) [Vitamin B-12] 1,000 mcg PO DAILY Melatonin 10 mg PO HS PRN PRN Reason: Insomnia Fluticasone Nasal [place] [Flonase Nasal [place]] 1 spray EA NOSTRIL DAILY diphenhydrAMINE HCL [Benadryl] 25 mg PO DAILY PRN PRN Reason: Allergy Symptoms busPIRone HCL 30 mg PO BID Dextroamphetamine/Amphetamine [Adderall] 10 mg PO BID HYDROcodone/APAP 5-325MG [[place] 5-325] 1 tab PO Q6HR PRN 3 Days #12 tab PRN Reason: Pain Discharge Medication List Levothyroxine Sodium [Synthroid] 100 mcg PO SUFRSA 01/16/19 [History] modafiniL [Provigil] 200 mg PO DAILY tab 03/07/19 [Rx] traMADol HCL [Ultram] 50 mg PO BID PRN 06/28/19 [History] Methenamine Hippurate 1 gm PO BID 07/12/19 [History] Ergocalciferol [Vitamin D2 (DRISDOL)] 50,000 unit PO TAYLOR 10/08/19 [History] Insulin Aspart [NovoLOG Flexpen] See Protocol SQ ACHS 10/08/19 [History] Mirabegron [Myrbetriq] 25 mg PO DAILY 10/08/19 [History] Fenofibrate [Lofibra] 160 mg PO HS tab 10/17/19 [Rx] Gabapentin [Neurontin] 400 mg PO TID cap 10/17/19 [Rx] Metoprolol Succinate (ER) [Toprol XL] 50 mg PO DAILY tab.er.24h 10/17/19 [Rx] Ondansetron [Zofran] 8 mg PO Q6H PRN tab 10/17/19 [Rx] Rivaroxaban [Xarelto] 20 mg PO HS tab 10/17/19 [Rx] Trimethoprim [Trimpex] 100 mg PO HS tab 10/17/19 [Rx] Acetaminophen Tab [Tylenol] 650 mg PO Q6H PRN 11/29/19 [History] [place] Carbonate 900 mg PO HS 11/29/19 [History] Prochlorperazine Suppository [Compazine] 25 mg RECTAL Q8H PRN 11/29/19 [History] Promethazine [Phenergan] 25 mg PO Q6H PRN 11/30/19 [History] Levothyroxine Sodium [Synthroid] 225 mcg PO MOTUWETH 12/28/19 [History] Albuterol Inhaler [Ventolin Hfa Inhaler] 1 puff INHALATION RT-Q4H PRN 09/19/20 [History] Butalbital/Aspirin/Caffeine [Bnhdgl-Dogxtkn-Umtkaqos 50-325-40 mg] 1 tab PO Q4H PRN 09/19/20 [History] Clonidine Er 0.1mg 0.1 mg PO BID 09/19/20 [History] Dexlansoprazole [Dexilant] 60 mg PO DAILY 09/19/20 [History] Dicyclomine [Bentyl] 20 mg PO QID PRN 09/19/20 [History] Galcanezumab-Gnlm [Emgality Pen] 120 mg SQ Q30D 09/19/20 [History] Insulin Glargine,Hum.rec.anlog [Lantus Solostar] 80 unit SQ DAILY 09/19/20 [History] Linaclotide [Linzess] 145 mcg PO DAILY PRN 09/19/20 [History] Meloxicam [Mobic] 15 mg PO DAILY 09/19/20 [History] Rizatriptan Benzoate [Rizatriptan] 5 mg PO BID PRN 09/19/20 [History] Sodium Chloride 0.9% Iv 500 ml IV DAILY 09/19/20 [History] Metoclopramide HCl [Reglan] 10 mg PO ACHS 01/03/21 [History] Brexpiprazole [Rexulti] 0.5 mg PO HS 06/01/21 [History] Cyanocobalamin (Vitamin B-12) [Vitamin B-12] 1,000 mcg PO DAILY 06/01/21 [History] Dextroamphetamine/Amphetamine [Adderall] 10 mg PO BID 06/01/21 [History] Ezetimibe [Zetia] 10 mg PO DAILY 06/01/21 [History] Fluticasone Nasal [place] [Flonase Nasal [place]] 1 spray EA NOSTRIL DAILY 06/01/21 [History] Loratadine [Claritin] 10 mg PO DAILY 06/01/21 [History] Meclizine HCl 12.5 mg PO TID PRN 06/01/21 [History] Melatonin 10 mg PO HS PRN 06/01/21 [History] busPIRone HCL 30 mg PO BID 06/01/21 [History] diphenhydrAMINE HCL [Benadryl] 25 mg PO DAILY PRN 06/01/21 [History] Baclofen [Lioresal] 20 mg PO Q12HR PRN 06/02/21 [History] hydrOXYzine pamoate [Vistaril] 100 mg PO HS 06/02/21 [History] HYDROcodone/APAP 5-325MG [[place] 5-325] 1 tab PO Q6HR PRN 3 Days #12 tab 06/04/21 [Rx] Follow up Appointment(s)/Referral(s): Leslie Mendez MD [STAFF PHYSICIAN] - 07/09/21 Patient Instructions/Handouts: Low Fat Diet (GEN), Laparoscopic Cholecystectomy (DC) Activity/Diet/Wound Care/Special Instructions: RESUME [facility] TOMORROW, 07/05/2021 No lifting over 10 pounds in 2 weeks until Jul 17. March shower. No bath tub soaks for two weeks until Jul 17. Diet as tolerated. No driving while on narcotics. Use current pain medications for best pain relief. Use ice along incisions for today to prevent swelling. For today, avoid high fat foods Discharge Disposition: HOME SELF-CARE
[2021-07-04 13:36] VITALS: BP 119/77; PULSE 78; RESP 18; TEMP 97.6
[2021-07-05] MEDS ORDERED: ERGOCALCIFEROL 1,250 MCG (50,000 IU) CAPSULE PO SCH (09:00)
[2021-07-06] MEDS ORDERED: LEVOTHYROXINE 112 MCG TAB PO SCH (06:30)
[2021-07-30] MEDS ORDERED: NON FORMULARY DRUG (Galcanezumab-Gnlm [Emgality Pen] 120 MG/ML Pen.Injctr) SQ SCH (09:00)
== END 2021-07-04 14:21 | disposition home or self-care (01) ==
LOC: OR 07:34 → 4SSUR 12:23 → OR 07-04 14:21
PROVIDERS: ATTEND Surgery Plastic and Reconstructive Surgery
DX: K80.12 Calculus of gallbladder with acute and chronic cholecystitis without obstruction (principal); E88.40 Mitochondrial metabolism disorder, unspecified; F31.9 Bipolar disorder, unspecified; E11.40 Type 2 diabetes mellitus with diabetic neuropathy, unspecified; E66.01 Morbid (severe) obesity due to excess calories; E06.3 Autoimmune thyroiditis; G89.29 Other chronic pain; Z86.718 Personal history of other venous thrombosis and embolism; Z79.01 Long term (current) use of anticoagulants; Z86.711 Personal history of pulmonary embolism; Z86.73 Personal history of transient ischemic attack (TIA), and cerebral infarction without residual deficits; E78.5 Hyperlipidemia, unspecified; G93.2 Benign intracranial hypertension; G90.1 Familial dysautonomia [Riley-Day]; D51.0 Vitamin B12 deficiency anemia due to intrinsic factor deficiency; E28.2 Polycystic ovarian syndrome; N31.9 Neuromuscular dysfunction of bladder, unspecified; D35.2 Benign neoplasm of pituitary gland; Z79.4 Long term (current) use of insulin; Z68.41 Body mass index [BMI] 40.0-44.9, adult; E07.9 Disorder of thyroid, unspecified; Z79.899 Other long term (current) drug therapy
CPT/HCPCS: 81025; 88304; 80053; 85025; 47562; J2250; J1100; J0690; J2405; J1642; J1650; J3010; J0131; J1885 ×2; J1170; J1644

== ENCOUNTER 2021-07-20 15:37 | Emergency (ER) | payer MEDICARE, OTHER ==
[2021-07-20 17:41] LABS: Appearance,Urine Clear (Clear); Bilirubin,Urine Negative (Negative); Blood,Urine Negative (Negative); Color,Urine Light Yellow; Glucose,Urine (UA) Negative (Negative); Ketones,Urine Negative (Negative); Leukocyte Esterase,Urine Negative (Negative); Nitrite,Urine Negative (Negative); PH, Urine 6.5 (5.0-8.0); Protein,Urine Negative (Negative); Specific Gravity,Urine 1.005 (1.001-1.035); Urobilinogen,Urine <2.0 mg/dL (<2.0)
[2021-07-20 17:41] LABS: Basophils # (A) 0.1 k/uL (0-0.2); Basophils % (A) 1 %; Eosinophils # (A) 0.2 k/uL (0-0.7); Eosinophils % (A) 3 %; HCT 40.1 % (34.0-46.0); HGB 13.5 gm/dL (11.4-16.0); Lymphocytes # (A) 1.4 k/uL (1.0-4.8); Lymphocytes % (A) 15 %; MCH 29.6 pg (25.0-35.0); MCHC 33.7 g/dL (31.0-37.0); MCV 87.9 fL (80.0-100.0); Mean Platelet Volume 6.8; Monocytes # (A) 0.4 k/uL (0-1.0); Monocytes % (A) 4 %; Neutrophils # (A) 7.6 k/uL (1.3-7.7); Neutrophils % (A) 77 %; Platelet Count 474 k/uL (150-450); RBC 4.57 m/uL (3.80-5.40); RDW 13.4 % (11.5-15.5); WBC 9.8 k/uL (3.8-10.6)
[2021-07-20 18:54] LABS: ALT 27 U/L (4-34); AST 34 U/L (14-36); African American GFR (CKD) >90 (>60 ml/min/1.73 sqM); Albumin 4.9 g/dL (3.5-5.0); Alkaline Phosphatase 66 U/L (38-126); Amylase 55 U/L (30-110); Anion Gap 15 mmol/L; Blood Urea Nitrogen 10 mg/dL (7-17); Carbon Dioxide 18 mmol/L (22-30); Chloride 107 mmol/L (98-107); Glucose 120 mg/dL (74-99); Lipase 58 U/L (23-300); Non-African American GFR(CKD) >90 (>60 ml/min/1.73 sqM); Potassium 4.5 mmol/L (3.5-5.1); Sodium 140 mmol/L (137-145); Total Bilirubin 0.3 mg/dL (0.2-1.3); Total Protein 7.5 g/dL (6.3-8.2)
[2021-07-20] MEDS ORDERED: ONDANSETRON 4 MG/2 ML VIAL IVP STA (19:35)
[2021-07-20] MEDS ORDERED: SODIUM CHLORIDE 0.9% 1,000 ML IV ONE (19:35)
[2021-07-20] MEDS ORDERED: traMADol 50 MG TAB PO STA (19:35)
[2021-07-20] MEDS ORDERED: KETOROLAC 15 MG/ML 1 ML VIAL IVP STA (19:37)
[2021-07-20] MEDS ORDERED: ACETAMINOPHEN TAB 500 MG TAB PO STA (19:37)
--- NOTE | 2021-07-20 20:10 | XR ---
EXAMINATION TYPE: XR chest 2V DATE OF EXAM: 07/20/2021 COMPARISON: 06/16/2021 HISTORY: Cough TECHNIQUE: FINDINGS: Heart and mediastinum are normal. Lungs are clear. Diaphragm is normal. Bony thorax appears normal. There is right-sided central venous catheter with tip in the superior vena cava. There is no pleural effusion. Bony thorax is intact. IMPRESSION: No active cardiopulmonary disease. No change.
--- NOTE | 2021-07-20 20:24 | CT ---
EXAMINATION TYPE: CT abdomen pelvis w con DATE OF EXAM: 07/20/2021 COMPARISON: 01/03/2021 HISTORY: abdominal pain, nausea, fever CT DLP: 5.5 mGycm Automated exposure control for dose reduction was used. CONTRAST: Performed with IV Contrast, patient injected with 100 mL of Isovue 300. Images obtained from the diaphragm to the floor the pelvis with IV contrast Isovue 100 mL. Low and ba ses are clear. There is no pleural effusion. Heart size is normal. There is no pericardial effusion. Liver spleen stomach pancreas appear intact. Gallbladder appears absent. The bile ducts are not dilat ed. There is no adrenal mass. Kidneys show satisfactory contrast opacification. There is no hydronephrosi s. Appendix appears normal. Ureters are not dilated. There is no retroperitoneal adenopathy. Bladder distends smoothly. There is no inguinal hernia. There is no free fluid in the pelvis. Uterus is antev erted. I see no pelvic mass. Lumbar vertebra have normal alignment. Posterior elements are intact. There is no compression fractur e. Bony pelvis is intact. The hip joints appear intact. There is no mesenteric edema. There is no ascites or free air. There is no bowel obstruction. IMPRESSION: Negative CT scan abdomen and pelvis. Normal appendix. No adverse change compared to old exam. There i s improvement in the fatty infiltration of the liver compared to old exam.
--- NOTE | 2021-07-20 20:47 | ED ---
General Adult HPI - General Chief complaint: Nausea/Vomiting/Diarrhea Stated complaint: Fever/Nausea/Diarrhea Time Seen by Provider: 07/20/21 19:10 Source: patient, RN notes reviewed, old records reviewed Mode of arrival: wheelchair Limitations: no limitations - History of Present Illness Initial comments: I evaluated the patient when she was placed in a room. Pre-workup was completed by nursing staff. Patient is a 41-year-old female with past medical history remarkable for CVA/TIA, diabetes, DVT, syncope, thyroid disorder, myocardial disease, lupus, idiopathic intracranial hypertension, dysautonomia, hashimotos disease, complex migraines, PCOS, UTIs who presents emergency Department complaining of fevers that are low-grade associated with nausea, vomiting, diarrhea. Patient is postop cholecystectomy from 2-1/2 weeks ago. She has no sick decreased appetite over the last 2 days. She states she is having generalized fatigue, a very mild headache, nausea, fevers, diarrhea. Patient is also complaining of nonspecific left-sided abdominal pain that comes and goes. She scribes as a crampy sensation. She states that it does not radiate. She denies any back pain. There are unknown palliative or provocative factors.She describes the diarrhea is nonbloody. She gets emesis is nonbilious and nonbloody. She denies any urinary complaints at this time. She states she is not . Endorses a very slight cough but denies any shortness of breath or chest pain. She is fully vaccinated for COVID-19 at this time. She denies any numbness or weakness. Patient otherwise has no acute complaints at this time. As she is immunocompromised, she presents concerned for a possible infection. She has been taking Reglan for nausea with minimal improvement. She is been attempting to manage her fevers at home with Tylenol and Motrin. She otherwise has no acute complaint at this time. She states the max fever She had at home was a little over 100F. - Related Data Home Medications Medication Instructions Recorded Confirmed Levothyroxine Sodium [Synthroid] 100 mcg PO SUFRSA 01/16/19 07/01/21 traMADol HCL [Ultram] 50 mg PO BID PRN 06/28/19 07/01/21 Methenamine Hippurate 1 gm PO BID 07/12/19 07/01/21 Ergocalciferol [Vitamin D2 50,000 unit PO TAYLOR 10/08/19 07/01/21 (DRISDOL)] Insulin Aspart [NovoLOG Flexpen] See Protocol SQ ACHS 10/08/19 07/01/21 Mirabegron [Myrbetriq] 25 mg PO DAILY 10/08/19 07/01/21 Acetaminophen Tab [Tylenol] 650 mg PO Q6H PRN 11/29/19 07/01/21 [place] Carbonate 900 mg PO HS 11/29/19 07/01/21 Prochlorperazine Suppository 25 mg RECTAL Q8H PRN 11/29/19 07/01/21 [Compazine] Promethazine [Phenergan] 25 mg PO Q6H PRN 11/30/19 07/01/21 Levothyroxine Sodium [Synthroid] 225 mcg PO MOTUWETH 12/28/19 07/01/21 Albuterol Inhaler [Ventolin Hfa 1 puff INHALATION RT-Q4H PRN 09/19/20 07/01/21 Inhaler] Butalbital/Aspirin/Caffeine 1 tab PO Q4H PRN 09/19/20 07/01/21 [Ybkiax-Wfcesdb-Zfiemmgg 50-325-40 mg] Clonidine Er 0.1mg 0.1 mg PO BID 09/19/20 07/01/21 Dexlansoprazole [Dexilant] 60 mg PO DAILY 09/19/20 07/01/21 Dicyclomine [Bentyl] 20 mg PO QID PRN 09/19/20 07/01/21 Galcanezumab-Gnlm [Emgality Pen] 120 mg SQ Q30D 09/19/20 07/01/21 Insulin Glargine,Hum.rec.anlog 80 unit SQ DAILY 09/19/20 07/01/21 [Lantus Solostar Pen] Linaclotide [Linzess] 145 mcg PO DAILY PRN 09/19/20 07/01/21 Meloxicam [Mobic] 15 mg PO DAILY 09/19/20 07/01/21 Rizatriptan Benzoate [Rizatriptan] 5 mg PO BID PRN 09/19/20 07/01/21 Sodium Chloride 0.9% Iv 500 ml IV DAILY 09/19/20 07/01/21 Metoclopramide HCl [Reglan] 10 mg PO ACHS 01/03/21 07/01/21 Brexpiprazole [Rexulti] 0.5 mg PO HS 06/01/21 07/01/21 Cyanocobalamin (Vitamin B-12) 1,000 mcg PO DAILY 06/01/21 07/01/21 [Vitamin B-12] Dextroamphetamine/Amphetamine 10 mg PO BID 06/01/21 07/01/21 [Adderall] Ezetimibe [Zetia] 10 mg PO DAILY 06/01/21 07/01/21 Fluticasone Nasal [place] [Flonase 1 spray EA NOSTRIL DAILY 06/01/21 07/01/21 Nasal [place]] Loratadine [Claritin] 10 mg PO DAILY 06/01/21 07/01/21 Meclizine HCl 12.5 mg PO TID PRN 06/01/21 07/01/21 Melatonin 10 mg PO HS PRN 06/01/21 07/01/21 busPIRone HCL 30 mg PO BID 06/01/21 07/01/21 diphenhydrAMINE HCL [Benadryl] 25 mg PO DAILY PRN 06/01/21 07/01/21 Baclofen [Lioresal] 20 mg PO Q12HR PRN 06/02/21 07/01/21 hydrOXYzine pamoate [Vistaril] 100 mg PO HS 06/02/21 07/01/21 Previous Rx's Medication Instructions Recorded modafiniL [Provigil] 200 mg PO DAILY tab 03/07/19 Fenofibrate [Lofibra] 160 mg PO HS tab 10/17/19 Gabapentin [Neurontin] 400 mg PO TID cap 10/17/19 Metoprolol Succinate (ER) [Toprol 50 mg PO DAILY tab.er.24h 10/17/19 XL] Ondansetron [Zofran] 8 mg PO Q6H PRN tab 10/17/19 Rivaroxaban [Xarelto] 20 mg PO HS tab 10/17/19 Trimethoprim [Trimpex] 100 mg PO HS tab 10/17/19 HYDROcodone/APAP 5-325MG [Simms 1 tab PO Q6HR PRN 3 Days #12 tab 06/04/21 5-325] Ondansetron Odt [Zofran Odt] 4 mg PO Q8HR PRN 3 Days #12 tab 07/20/21 Allergies Allergy/AdvReac Type Severity Reaction Status Date / Time peanut oil Allergy Severe Nausea & Verified 07/20/21 17:21 Vomiting,itching barium sulfate Allergy Anaphylaxis Verified 07/20/21 17:21 doxepin [Doxepin] Allergy Anaphylaxis Verified 07/20/21 17:21 ephedrine Allergy Chest Verified 07/20/21 17:21 Pain/tachycardia ertapenem [From Invanz] Allergy Rash/Hives Verified 07/20/21 17:21 influenza virus vaccine, Allergy severe Verified 07/20/21 17:21 specific swelling [Influenza Virus and hives Vacc,Specific] peanut Allergy Nausea & Verified 07/20/21 17:21 Vomiting/itching pseudoephedrine Allergy Chest Pain Verified 07/20/21 17:21 doxycycline AdvReac Nausea & Verified 07/20/21 17:21 Vomiting & Diarrhea Pertussis Vaccines AdvReac fever/seizu Verified 07/20/21 17:21 re pseudoephedrine HCl AdvReac chest Verified 07/20/21 17:21 [From Sudafed] pain/tachycardia sulfamethoxazole AdvReac Nausea & Verified 07/20/21 17:21 [From Bactrim] Vomiting trimethoprim [From Bactrim] AdvReac Nausea & Verified 07/20/21 17:21 Vomiting Review of Systems ROS Statement: Those systems with pertinent positive or pertinent negative responses have been documented in the HPI. Review of Systems: CONST: Endorses fever EYES: Denies blurry vision ENT: Denies nasal congestion C/V: Denies Chest pain RESP: Denies shortness of breath GI: Endorses abdominal pain, nausea : Denies dysuria SKIN: Denies rash. MSK: Denies joint pain. NEURO: Denies headache ROS Other: All systems not noted in ROS Statement are negative. Past Medical History Past Medical History: CVA/TIA, Diabetes Mellitus, Deep Vein Thrombosis (DVT), Neurologic Disorder, Syncope, Thyroid Disorder Additional Past Medical History / Comment(s): port a cath rt chest , STROKE LIKE EPISODE D/T MITOCHRONDIAL DISEASE HAD WORK UP DONE AT [facility]. Dysautonomia, idiopathic intracranial HTN, lupus/ per pt last LUPUS ANTICOAGULANTS antiphosolipid test 06/10 neg., ana maria's disease, lymphedema Lt arm d/t DVTs,avoid use of lt arm for b/p,iv,blood draws, v-tach, pituitary microadenoma. patent foramen ovale, narcolepsy, gastropareis, HX orthostatic h ypotension/syncope, migraines with hemiplegia, pernicious anemia, polycystic ovarian syndrome, neuropathy bilateral legs/feet - mild, uti's. neurogenic bladder, stress incontinence, uses wheelchair, able to transfer and walk few steps History of Any Multi-Drug Resistant Organisms: ESBL, MRSA Date of last positivie culture/infection: 03/09/17 MRSA/ 05/17/18 ESBL MDRO Source:: MRSA LEFT ARM,/ESBL URINE ECOLI Past Surgical History: Cholecystectomy, Uterine Ablation Additional Past Surgical History / Comment(s): colonscopy/egd, angie, PORT-A -CATH INSERTION, Past Anesthesia/Blood Transfusion Reactions: Previous Problems w/ Anesthesia Additional Past Anesthesia/Blood Transfusion Reaction / Comment(s): patient states "It takes a lot of anesthesia for my body to react". Pt has received blood in past without reaction. pt has met with anesthesia-will bring in a summary page for anesthesia r/t mitochondrial disease Past Psychological History: Bipolar, Depression Smoking Status: Never smoker Past Alcohol Use History: None Reported Past Drug Use History: None Reported - Past Family History Brother(s) Family Medical History: Diabetes Mellitus, Hyperlipidemia, Hypertension Additional Family Medical History / Comment(s): Patient states she has 1 brother with no major medical problems. Father Family Medical History: Diabetes Mellitus, Hyperlipidemia, Hypertension Additional Family Medical History / Comment(s): DAD IS 70 YEARS OLD. Patient states she does not have any contact with her father and does not know his medical history. Mother Family Medical History: CVA/TIA, Deep Vein Thrombosis (DVT) Additional Family Medical History / Comment(s): antiphospholipid antibody syndrome lupus dementia General Exam - General Exam Comments Initial Comments: General: Appears in no acute distress. HEAD: Normal with no signs of head trauma. EYES: PERRLA, EOMI, conjunctiva normal, no discharge. ENT: Hearing grossly intact, normal oropharynx. RESPIRATORY: Clear breath sounds bilaterally. No wheezes, rales, or rhonchi. C/V: Regular rate and rhythm. S1 and S2 auscultated, no edema, peripheral pulses 2+ and intact throughout. Patient does have a right chest port for daily, saline infusions. ABD: Abdomen is soft, nondistended. She has nonspecific abdominal pain over the left lower quadrant of her abdomen. There are no peritoneal signs. No rebound tenderness. No CVA tenderness to percussion. Surgical sites appear noninfected and are healing well. EXT: Normal range of motion, no obvious deformity SKIN: No rashes or lesions observed on exposed skin. NEURO: Alert and oriented 4. No focal deficits. Limitations: no limitations Course Vital Signs 07/20/21 07/20/21 07/20/21 17:14 20:41 20:52 Temperature 99.9 F H 99.2 F 99.2 F Pulse Rate 97 Respiratory 16 Rate Blood Pressure 132/79 O2 Sat by Pulse 98 Oximetry Medical Decision Making - Medical Decision Making Based on the patient's presentation and physical exam, I'm concerned for possible infectious etiology at this time. Laboratory studies were ordered by nursing staff's part of the pre-workup and were relatively unremarkable. Patient is a mild decreased bicarb of 18. She does not have an anion gap. Electrolytes appear within normal limits. Urinalysis is unremarkable. She is COVID-19 negative. Remainder of her labs are unremarkable. She has no leukocytosis. In addition to the workup that was completed, we will obtain a test which is negative. I also would like to obtain a chest x-ray as well as a CT abdomen and pelvis with contrast. She'll be treated for pain with an overdose of her Ultram, Toradol, Tylenol. She is a low-grade fever at this time and Toradol and Tylenol she also treated time. Patient will be given Zofran as well as 1 L fluid bolus. She was in agreement this plan. Patient's chest x-ray shows no acute cardiopulmonary process. Patient's CT and pelvis revealed no acute intra-abdominal process, and even improvement of the fatty infiltration of the liver compared to prior exams. Reevaluation come patient's time by mouth intake. She states her headache has resolved. Her abdominal pain is improved. She no longer feels nauseous. She is tolerating by mouth intake. Patient's fever is also improved. We discussed that she is likely experiencing some form of viral syndrome and it is important that she states hydrated. Have no reason to suspect a bacterial infection at this time. She was in agreement with this plan. I do believe it is safer to be discharged with close follow-up. She was in agreement with this plan. I will provide the patient with a prescription for Zofran ODT. I instructed the patient to follow up with their PCP in the next 3 days. I explained that the patient should return to the emergency department if they experience any worsening symptoms. Strict return precautions were discussed with the patient. The patient expressed understanding of these instructions. I answered all questions that the patient had. The patient was discharged home in fair condition with their prescriptions and follow up information. - Lab Data Result diagrams: 07/20/21 17:21 07/20/21 17:21 Lab Results 07/20/21 07/20/21 07/20/21 Range/Units 17:21 17: 17:29 WBC 9.8 (3.8-10.6) k/uL RBC 4.57 (3.80-5.40) m/uL Hgb 13.5 (11.4-16.0) gm/dL Hct 40.1 (34.0-46.0) % MCV 87.9 (80.0-100.0) fL MCH 29.6 (25.0-35.0) pg MCHC 33.7 (31.0-37.0) g/dL RDW 13.4 (11.5-15.5) % Plt Count 474 H (150-450) k/uL MPV 6.8 Neutrophils % 77 % Lymphocytes % 15 % Monocytes % 4 % Eosinophils % 3 % Basophils % 1 % Neutrophils # 7.6 (1.3-7.7) k/uL Lymphocytes # 1.4 (1.0-4.8) k/uL Monocytes # 0.4 (0-1.0) k/uL Eosinophils # 0.2 (0-0.7) k/uL Basophils # 0.1 (0-0.2) k/uL Sodium 140 (137-145) mmol/L Potassium 4.5 (3.5-5.1) mmol/L Chloride 107 (98-107) mmol/L Carbon Dioxide 18 L (22-30) mmol/L Anion Gap 15 mmol/L BUN 10 (7-17) mg/dL Creatinine 0.78 (0.52-1.04) mg/dL Est GFR (CKD-EPI)AfAm >90 (>60 ml/min/1.73 sqM) Est GFR (CKD-EPI)NonAf >90 (>60 ml/min/1.73 sqM) Glucose 120 H (74-99) mg/dL Calcium 11.0 H (8.4-10.2) mg/dL Total Bilirubin 0.3 (0.2-1.3) mg/dL AST 34 (14-36) U/L ALT 27 (4-34) U/L Alkaline Phosphatase 66 (38-126) U/L Total Protein 7.5 (6.3-8.2) g/dL Albumin 4.9 (3.5-5.0) g/dL Amylase 55 (30-110) U/L Lipase 58 (23-300) U/L Urine Color Light Yellow Urine Appearance Clear (Clear) Urine pH 6.5 (5.0-8.0) Ur Specific [place] 1.005 (1.001-1.035) Urine Protein Negative (Negative) Urine Glucose (UA) Negative (Negative) Urine Ketones Negative (Negative) Urine Blood Negative (Negative) Urine Nitrite Negative (Negative) Urine Bilirubin Negative (Negative) Urine Urobilinogen <2.0 (<2.0) mg/dL Ur Leukocyte Esterase Negative (Negative) Urine HCG, Qual (Not Detectd) Coronavirus (PCR) (Not Detectd) 07/20/21 07/20/21 Range/Units 17:29 17:29 WBC (3.8-10.6) k/uL RBC (3.80-5.40) m/uL Hgb (11.4-16.0) gm/dL Hct (34.0-46.0) % MCV (80.0-100.0) fL MCH (25.0-35.0) pg MCHC (31.0-37.0) g/dL RDW (11.5-15.5) % Plt Count (150-450) k/uL MPV Neutrophils % % Lymphocytes % % Monocytes % % Eosinophils % % Basophils % % Neutrophils # (1.3-7.7) k/uL Lymphocytes # (1.0-4.8) k/uL Monocytes # (0-1.0) k/uL Eosinophils # (0-0.7) k/uL Basophils # (0-0.2) k/uL Sodium (137-145) mmol/L Potassium (3.5-5.1) mmol/L Chloride (98-107) mmol/L Carbon Dioxide (22-30) mmol/L Anion Gap mmol/L BUN (7-17) mg/dL Creatinine (0.52-1.04) mg/dL Est GFR (CKD-EPI)AfAm (>60 ml/min/1.73 sqM) Est GFR (CKD-EPI)NonAf (>60 ml/min/1.73 sqM) Glucose (74-99) mg/dL Calcium (8.4-10.2) mg/dL Total Bilirubin (0.2-1.3) mg/dL AST (14-36) U/L ALT (4-34) U/L Alkaline Phosphatase (38-126) U/L Total Protein (6.3-8.2) g/dL Albumin (3.5-5.0) g/dL Amylase (30-110) U/L Lipase (23-300) U/L Urine Color Urine Appearance (Clear) Urine pH (5.0-8.0) Ur Specific [place] (1.001-1.035) Urine Protein (Negative) Urine Glucose (UA) (Negative) Urine Ketones (Negative) Urine Blood (Negative) Urine Nitrite (Negative) Urine Bilirubin (Negative) Urine Urobilinogen (<2.0) mg/dL Ur Leukocyte Esterase (Negative) Urine HCG, Qual Not Detected (Not Detectd) Coronavirus (PCR) Not Detected (Not Detectd) Disposition Clinical Impression: Abdominal pain of unknown etiology, Nausea and vomiting, Fever, Diarrhea, Viral syndrome Disposition: HOME SELF-CARE Condition: Fair Instructions (If sedation given, give patient instructions): Acute Nausea and Vomiting (ED), Abdominal Pain (ED) Prescriptions: Ondansetron Odt [Zofran Odt] 4 mg PO Q8HR PRN 3 Days #12 tab PRN Reason: Nausea Is patient prescribed a controlled substance at d/c from ED?: No Referrals: Julissa Montano III, MD [Primary Care Provider] - 1-2 days
[2021-07-20 22:13] VITALS: BP 133/78; PULSE 79; RESP 18; TEMP 98.8
== END 2021-07-20 22:12 | disposition home or self-care (01) ==
LOC: EC 15:37
DX: B34.9 Viral infection, unspecified (principal); E11.40 Type 2 diabetes mellitus with diabetic neuropathy, unspecified; E11.43 Type 2 diabetes mellitus with diabetic autonomic (poly)neuropathy; K31.84 Gastroparesis; I10 Essential (primary) hypertension; Z79.4 Long term (current) use of insulin; Z79.1 Long term (current) use of non-steroidal anti-inflammatories (NSAID); Z79.82 Long term (current) use of aspirin; Z79.890 Hormone replacement therapy; Z79.899 Other long term (current) drug therapy; Z83.3 Family history of diabetes mellitus; Z82.49 Family history of ischemic heart disease and other diseases of the circulatory system; Z83.49 Family history of other endocrine, nutritional and metabolic diseases; Z86.73 Personal history of transient ischemic attack (TIA), and cerebral infarction without residual deficits; Z86.718 Personal history of other venous thrombosis and embolism; Z88.1 Allergy status to other antibiotic agents; Z88.2 Allergy status to sulfonamides; Z90.49 Acquired absence of other specified parts of digestive tract
CPT/HCPCS: 99284; 96374; 96375; 96361; 36415; 80053; 82150; 83690; 85025; 81003; 81025; 87635; 71046; 74177; J2405; J1642; J1885; Q9967

== ENCOUNTER 2021-09-14 01:02 | Emergency (ER) | payer MEDICARE, OTHER ==
[2021-09-14 02:44] VITALS: RESP 20
--- NOTE | 2021-09-14 03:19 | ED ---
General Adult HPI - General Chief complaint: Extremity Problem,Nontraumatic Stated complaint: Pos cellulitis Time Seen by Provider: 09/14/21 03:07 Source: patient, EMS, RN notes reviewed Mode of arrival: EMS Limitations: no limitations - History of Present Illness Initial comments: Patient is a 41-year-old female that presents to the emergency department complaining of left foot redness and warmth. She notes that yesterday it started off as a small area but today it larger. She notes she went to her primary care to a Covid emergency room. Patient was well-appearing in no apparent distress. She denied any chest pain shortness of breath headache nausea vomiting diarrhea constipation fever fatigue chills. She denied any injury or trauma to her left foot. - Related Data Home Medications Medication Instructions Recorded Confirmed Levothyroxine Sodium [Synthroid] 100 mcg PO SUFRSA 01/16/19 07/01/21 traMADol HCL [Ultram] 50 mg PO BID PRN 06/28/19 07/01/21 Methenamine Hippurate 1 gm PO BID 07/12/19 07/01/21 Ergocalciferol [Vitamin D2 50,000 unit PO TAYLOR 10/08/19 07/01/21 (DRISDOL)] Insulin Aspart [NovoLOG Flexpen] See Protocol SQ ACHS 10/08/19 07/01/21 Mirabegron [Myrbetriq] 25 mg PO DAILY 10/08/19 07/01/21 Acetaminophen Tab [Tylenol] 650 mg PO Q6H PRN 11/29/19 07/01/21 [place] Carbonate 900 mg PO HS 11/29/19 07/01/21 Prochlorperazine Suppository 25 mg RECTAL Q8H PRN 11/29/19 07/01/21 [Compazine] Promethazine [Phenergan] 25 mg PO Q6H PRN 11/30/19 07/01/21 Levothyroxine Sodium [Synthroid] 225 mcg PO MOTUWETH 12/28/19 07/01/21 Albuterol Inhaler [Ventolin Hfa 1 puff INHALATION RT-Q4H PRN 09/19/20 07/01/21 Inhaler] Butalbital/Aspirin/Caffeine 1 tab PO Q4H PRN 09/19/20 07/01/21 [Tdnmxd-Ritkmlb-Vurqqjwm 50-325-40 mg] Clonidine Er 0.1mg 0.1 mg PO BID 09/19/20 07/01/21 Dexlansoprazole [Dexilant] 60 mg PO DAILY 09/19/20 07/01/21 Dicyclomine [Bentyl] 20 mg PO QID PRN 09/19/20 07/01/21 Galcanezumab-Gnlm [Emgality Pen] 120 mg SQ Q30D 09/19/20 07/01/21 Insulin Glargine,Hum.rec.anlog 80 unit SQ DAILY 09/19/20 07/01/21 [Lantus Solostar Pen] Linaclotide [Linzess] 145 mcg PO DAILY PRN 09/19/20 07/01/21 Meloxicam [Mobic] 15 mg PO DAILY 09/19/20 07/01/21 Rizatriptan Benzoate [Rizatriptan] 5 mg PO BID PRN 09/19/20 07/01/21 Sodium Chloride 0.9% Iv 500 ml IV DAILY 09/19/20 07/01/21 Metoclopramide HCl [Reglan] 10 mg PO ACHS 01/03/21 07/01/21 Brexpiprazole [Rexulti] 0.5 mg PO HS 06/01/21 07/01/21 Cyanocobalamin (Vitamin B-12) 1,000 mcg PO DAILY 06/01/21 07/01/21 [Vitamin B-12] Dextroamphetamine/Amphetamine 10 mg PO BID 06/01/21 07/01/21 [Adderall] Ezetimibe [Zetia] 10 mg PO DAILY 06/01/21 07/01/21 Fluticasone Nasal [place] [Flonase 1 spray EA NOSTRIL DAILY 06/01/21 07/01/21 Nasal [place]] Loratadine [Claritin] 10 mg PO DAILY 06/01/21 07/01/21 Meclizine HCl 12.5 mg PO TID PRN 06/01/21 07/01/21 Melatonin 10 mg PO HS PRN 06/01/21 07/01/21 busPIRone HCL 30 mg PO BID 06/01/21 07/01/21 diphenhydrAMINE HCL [Benadryl] 25 mg PO DAILY PRN 06/01/21 07/01/21 Baclofen [Lioresal] 20 mg PO Q12HR PRN 06/02/21 07/01/21 hydrOXYzine pamoate [Vistaril] 100 mg PO HS 06/02/21 07/01/21 Previous Rx's Medication Instructions Recorded modafiniL [Provigil] 200 mg PO DAILY tab 03/07/19 Fenofibrate [Lofibra] 160 mg PO HS tab 10/17/19 Gabapentin [Neurontin] 400 mg PO TID cap 10/17/19 Metoprolol Succinate (ER) [Toprol 50 mg PO DAILY tab.er.24h 10/17/19 XL] Ondansetron [Zofran] 8 mg PO Q6H PRN tab 10/17/19 Rivaroxaban [Xarelto] 20 mg PO HS tab 10/17/19 Trimethoprim [Trimpex] 100 mg PO HS tab 10/17/19 HYDROcodone/APAP 5-325MG [[place] 1 tab PO Q6HR PRN 3 Days #12 tab 06/04/21 5-325] Ondansetron Odt [Zofran Odt] 4 mg PO Q8HR PRN 3 Days #12 tab 07/20/21 Cephalexin [Keflex] 500 mg PO Q6HR #40 cap 09/14/21 Allergies Allergy/AdvReac Type Severity Reaction Status Date / Time peanut oil Allergy Severe Nausea & Verified 09/14/21 01:18 Vomiting,itching barium sulfate Allergy Anaphylaxis Verified 09/14/21 01:18 doxepin [Doxepin] Allergy Anaphylaxis Verified 09/14/21 01:18 ephedrine Allergy Chest Verified 09/14/21 01:18 Pain/tachycardia ertapenem [From Invanz] Allergy Rash/Hives Verified 09/14/21 01:18 influenza virus vaccine, Allergy severe Verified 09/14/21 01:18 specific swelling [Influenza Virus and hives Vacc,Specific] peanut Allergy Nausea & Verified 09/14/21 01:18 Vomiting/itching pseudoephedrine Allergy Chest Pain Verified 09/14/21 01:18 doxycycline AdvReac Nausea & Verified 09/14/21 01:18 Vomiting & Diarrhea Pertussis Vaccines AdvReac fever/seizu Verified 09/14/21 01:18 re pseudoephedrine HCl AdvReac chest Verified 09/14/21 01:18 [From Sudafed] pain/tachycardia sulfamethoxazole AdvReac Nausea & Verified 09/14/21 01:18 [From Bactrim] Vomiting trimethoprim [From Bactrim] AdvReac Nausea & Verified 09/14/21 01:18 Vomiting Review of Systems ROS Statement: Those systems with pertinent positive or pertinent negative responses have been documented in the HPI. ROS Other: All systems not noted in ROS Statement are negative. Past Medical History Past Medical History: CVA/TIA, Diabetes Mellitus, Deep Vein Thrombosis (DVT), Neurologic Disorder, Syncope, Thyroid Disorder Additional Past Medical History / Comment(s): port a cath rt chest , STROKE LIKE EPISODE D/T MITOCHRONDIAL DISEASE HAD WORK UP DONE AT [facility]. Dysautonomia, idiopathic intracranial HTN, lupus/ per pt last LUPUS ANTICOAGULANTS antiphosolipid test 06/10 neg., ana maria's disease, lymphedema Lt arm d/t DVTs,avoid use of lt arm for b/p,iv,blood draws, v-tach, pituitary microadenoma. patent foramen ovale, narcolepsy, gastropareis, HX orthostatic hypotension/syncope, migraines with hemiplegia, pernicious anemia, polycystic ovarian syndrome, neuropathy bilateral legs/feet - mild, uti's. neurogenic bladder, stress incontinence, uses wheelchair, able to transfer and walk few steps History of Any Multi-Drug Resistant Organisms: ESBL, MRSA Date of last positivie culture/infection: 03/09/17 MRSA/ 05/17/18 ESBL MDRO Source:: MRSA LEFT ARM,/ESBL URINE ECOLI Past Surgical History: Cholecystectomy, Uterine Ablation Additional Past Surgical History / Comment(s): colonscopy/egd, angie, PORT-A -CATH INSERTION, Past Anesthesia/Blood Transfusion Reactions: Previous Problems w/ Anesthesia Additional Past Anesthesia/Blood Transfusion Reaction / Comment(s): patient states "It takes a lot of anesthesia for my body to react". Pt has received blood in past without reaction. pt has met with anesthesia-will bring in a summary page for anesthesia r/t mitochondrial disease Past Psychological History: Bipolar, Depression Smoking Status: Never smoker Past Alcohol Use History: None Reported Past Drug Use History: None Reported - Past Family History Brother(s) Family Medical History: Diabetes Mellitus, Hyperlipidemia, Hypertension Additional Family Medical History / Comment(s): Patient states she has 1 brother with no major medical problems. Father Family Medical History: Diabetes Mellitus, Hyperlipidemia, Hypertension Additional Family Medical History / Comment(s): DAD IS 70 YEARS OLD. Patient states she does not have any contact with her father and does not know his medical history. Mother Family Medical History: CVA/TIA, Deep Vein Thrombosis (DVT) Additional Family Medical History / Comment(s): antiphospholipid antibody syndrome lupus dementia General Exam Limitations: no limitations General appearance: alert, in no apparent distress Head exam: Present: atraumatic, normocephalic, normal inspection Eye exam: Present: normal appearance, PERRL, EOMI. Absent: scleral icterus, conjunctival injection, periorbital swelling ENT exam: Present: normal exam, mucous membranes moist Neck exam: Present: normal inspection Respiratory exam: Present: normal lung sounds bilaterally. Absent: respiratory distress, wheezes, rales, rhonchi, stridor Cardiovascular Exam: Present: regular rate, normal rhythm, normal heart sounds. Absent: systolic murmur, diastolic murmur, rubs, gallop, clicks Extremities exam: Present: normal inspection, full ROM, normal capillary refill. Absent: tenderness, pedal edema, joint swelling, calf tenderness Skin exam: Present: warm, dry, intact, normal color, erythema (Left lateral foot, warm to the touch, minimally tender.). Absent: rash Course Vital Signs 09/14/21 01:14 Temperature 98 F Pulse Rate 89 Respiratory 20 Rate Blood Pressure 160/90 O2 Sat by Pulse 98 Oximetry Medical Decision Making - Medical Decision Making 41-year-old female with a left foot erythema. Upon physical exam is consistent with a localized cellulitis. Patient was sent antibiotics to pharmacy. She is agreeable with discharge home with follow-up to primary care. Discussed with Dr. Bahena, patient discharge home. Disposition Clinical Impression: Cellulitis Disposition: HOME SELF-CARE Condition: Stable Instructions (If sedation given, give patient instructions): Cellulitis (ED) Additional Instructions: Please return to the Emergency Department if symptoms worsen or any other concerns. Follow-up with primary care in 1-2 days. Take antibiotics as prescribed until complete. Is patient prescribed a controlled substance at d/c from ED?: No Referrals: Julissa Montano III, MD [Primary Care Provider] - 1-2 days Time of Disposition: 03:19
[2021-09-14 03:32] VITALS: BP 155/79; PULSE 71; TEMP 97.6
== END 2021-09-14 03:32 | disposition home or self-care (01) ==
LOC: EC 01:02
DX: L03.116 Cellulitis of left lower limb (principal); E11.40 Type 2 diabetes mellitus with diabetic neuropathy, unspecified; I10 Essential (primary) hypertension; F31.9 Bipolar disorder, unspecified; Z79.1 Long term (current) use of non-steroidal anti-inflammatories (NSAID); Z79.4 Long term (current) use of insulin; Z79.82 Long term (current) use of aspirin; Z79.899 Other long term (current) drug therapy; Z86.718 Personal history of other venous thrombosis and embolism; Z86.73 Personal history of transient ischemic attack (TIA), and cerebral infarction without residual deficits; Z88.1 Allergy status to other antibiotic agents; Z88.2 Allergy status to sulfonamides; Z90.49 Acquired absence of other specified parts of digestive tract; Z83.49 Family history of other endocrine, nutritional and metabolic diseases; Z83.3 Family history of diabetes mellitus; Z82.49 Family history of ischemic heart disease and other diseases of the circulatory system
CPT/HCPCS: 99283

== ENCOUNTER 2021-09-27 07:29 | Inpatient (IN) | payer MEDICARE, OTHER ==
[2021-09-27 09:01] LABS: Basophils # (A) 0.1 k/uL (0-0.2); Basophils % (A) 1 %; Eosinophils # (A) 0.4 k/uL (0-0.7); Eosinophils % (A) 4 %; HCT 39.3 % (34.0-46.0); HGB 12.9 gm/dL (11.4-16.0); Lymphocytes # (A) 1.5 k/uL (1.0-4.8); Lymphocytes % (A) 15 %; MCH 29.5 pg (25.0-35.0); MCHC 32.8 g/dL (31.0-37.0); Mean Platelet Volume 7.2; Monocytes # (A) 0.5 k/uL (0-1.0); Monocytes % (A) 5 %; Neutrophils # (A) 7.4 k/uL (1.3-7.7); Neutrophils % (A) 74 %; Platelet Count 375 k/uL (150-450); RBC 4.37 m/uL (3.80-5.40); RDW 13.7 % (11.5-15.5)
[2021-09-27] MEDS ORDERED: VANCOMYCIN IV PER PHARMACY 1 EACH MISC MISCELLANE PRN (09:09)
[2021-09-27 09:10] LABS: ALT 24 U/L (4-34); AST 25 U/L (14-36); African American GFR (CKD) >90 (>60 ml/min/1.73 sqM); Albumin 4.4 g/dL (3.5-5.0); Alkaline Phosphatase 76 U/L (38-126); Anion Gap 13 mmol/L; Blood Urea Nitrogen 14 mg/dL (7-17); Calcium 9.9 mg/dL (8.4-10.2); Carbon Dioxide 20 mmol/L (22-30); Chloride 103 mmol/L (98-107); Glucose 264 mg/dL (74-99); Non-African American GFR(CKD) >90 (>60 ml/min/1.73 sqM); Potassium 4.4 mmol/L (3.5-5.1); Sodium 136 mmol/L (137-145); Total Bilirubin 0.3 mg/dL (0.2-1.3); Total Protein 7.2 g/dL (6.3-8.2)
--- NOTE | 2021-09-27 09:11 | ED ---
General Adult HPI - General Chief complaint: Recheck/Abnormal Lab/Rx Stated complaint: positive culture, sent by DR Bermduez Seen by Provider: 09/27/21 08:02 Source: patient, RN notes reviewed Mode of arrival: wheelchair Limitations: physical limitation - History of Present Illness Initial comments: This a 41-year-old female presents emergency Department with chief complaint of positive blood culture. Patient states that she removes her port on have it replaced on Tuesday by her home health care nurse. She does associate can shower. She does dehydration but states when she removed on she noticed a little bit of drainage that she was unsure where it came from. Patient states that she's had no fever over the weekend which she had fevers beginning week after she had her to start vaccine for COVID-19 along with her influenza shot. Patient states is no redness at the site has no real specific complaint today but had blood cultures drawn yesterday came back positive for possible staph today. - Related Data Home Medications Medication Instructions Recorded Confirmed Levothyroxine Sodium [Synthroid] 100 mcg PO SUFRSA 01/16/19 07/01/21 traMADol HCL [Ultram] 50 mg PO BID PRN 06/28/19 07/01/21 Methenamine Hippurate 1 gm PO BID 07/12/19 07/01/21 Ergocalciferol [Vitamin D2 50,000 unit PO TAYLOR 10/08/19 07/01/21 (DRISDOL)] Insulin Aspart [NovoLOG Flexpen] See Protocol SQ ACHS 10/08/19 07/01/21 Mirabegron [Myrbetriq] 25 mg PO DAILY 10/08/19 07/01/21 Acetaminophen Tab [Tylenol] 650 mg PO Q6H PRN 11/29/19 07/01/21 [place] Carbonate 900 mg PO HS 11/29/19 07/01/21 Prochlorperazine Suppository 25 mg RECTAL Q8H PRN 11/29/19 07/01/21 [Compazine] Promethazine [Phenergan] 25 mg PO Q6H PRN 11/30/19 07/01/21 Levothyroxine Sodium [Synthroid] 225 mcg PO MOTUWETH 12/28/19 07/01/21 Albuterol Inhaler [Ventolin Hfa 1 puff INHALATION RT-Q4H PRN 09/19/20 07/01/21 Inhaler] Butalbital/Aspirin/Caffeine 1 tab PO Q4H PRN 09/19/20 07/01/21 [Wgvpni-Vkdasud-Guaphhnv 50-325-40 mg] Clonidine Er 0.1mg 0.1 mg PO BID 09/19/20 07/01/21 Dexlansoprazole [Dexilant] 60 mg PO DAILY 09/19/20 07/01/21 Dicyclomine [Bentyl] 20 mg PO QID PRN 09/19/20 07/01/21 Galcanezumab-Gnlm [Emgality Pen] 120 mg SQ Q30D 09/19/20 07/01/21 Insulin Glargine,Hum.rec.anlog 80 unit SQ DAILY 09/19/20 07/01/21 [Lantus Solostar Pen] Linaclotide [Linzess] 145 mcg PO DAILY PRN 09/19/20 07/01/21 Meloxicam [Mobic] 15 mg PO DAILY 09/19/20 07/01/21 Rizatriptan Benzoate [Rizatriptan] 5 mg PO BID PRN 09/19/20 07/01/21 Sodium Chloride 0.9% Iv 500 ml IV DAILY 09/19/20 07/01/21 Metoclopramide HCl [Reglan] 10 mg PO ACHS 01/03/21 07/01/21 Brexpiprazole [Rexulti] 0.5 mg PO HS 06/01/21 07/01/21 Cyanocobalamin (Vitamin B-12) 1,000 mcg PO DAILY 06/01/21 07/01/21 [Vitamin B-12] Dextroamphetamine/Amphetamine 10 mg PO BID 06/01/21 07/01/21 [Adderall] Ezetimibe [Zetia] 10 mg PO DAILY 06/01/21 07/01/21 Fluticasone Nasal [place] [Flonase 1 spray EA NOSTRIL DAILY 06/01/21 07/01/21 Nasal [place]] Loratadine [Claritin] 10 mg PO DAILY 06/01/21 07/01/21 Meclizine HCl 12.5 mg PO TID PRN 06/01/21 07/01/21 Melatonin 10 mg PO HS PRN 06/01/21 07/01/21 busPIRone HCL 30 mg PO BID 06/01/21 07/01/21 diphenhydrAMINE HCL [Benadryl] 25 mg PO DAILY PRN 06/01/21 07/01/21 Baclofen [Lioresal] 20 mg PO Q12HR PRN 06/02/21 07/01/21 hydrOXYzine pamoate [Vistaril] 100 mg PO HS 06/02/21 07/01/21 Previous Rx's Medication Instructions Recorded modafiniL [Provigil] 200 mg PO DAILY tab 03/07/19 Fenofibrate [Lofibra] 160 mg PO HS tab 10/17/19 Gabapentin [Neurontin] 400 mg PO TID cap 10/17/19 Metoprolol Succinate (ER) [Toprol 50 mg PO DAILY tab.er.24h 10/17/19 XL] Ondansetron [Zofran] 8 mg PO Q6H PRN tab 10/17/19 Rivaroxaban [Xarelto] 20 mg PO HS tab 10/17/19 Trimethoprim [Trimpex] 100 mg PO HS tab 10/17/19 HYDROcodone/APAP 5-325MG [[place] 1 tab PO Q6HR PRN 3 Days #12 tab 06/04/21 5-325] Ondansetron Odt [Zofran Odt] 4 mg PO Q8HR PRN 3 Days #12 tab 07/20/21 Cephalexin [Keflex] 500 mg PO Q6HR #40 cap 09/14/21 Allergies Allergy/AdvReac Type Severity Reaction Status Date / Time peanut oil Allergy Severe Nausea & Verified 09/27/21 07:55 Vomiting,itching barium sulfate Allergy Anaphylaxis Verified 09/27/21 07:55 doxepin [Doxepin] Allergy Anaphylaxis Verified 09/27/21 07:55 ephedrine Allergy Chest Verified 09/27/21 07:55 Pain/tachycardia ertapenem [From Invanz] Allergy Rash/Hives Verified 09/27/21 07:55 influenza virus vaccine, Allergy severe Verified 09/27/21 07:55 specific swelling [Influenza Virus and hives Vacc,Specific] peanut Allergy Nausea & Verified 09/27/21 07:55 Vomiting/itching pseudoephedrine Allergy Chest Pain Verified 09/27/21 07:55 doxycycline AdvReac Nausea & Verified 09/27/21 07:55 Vomiting & Diarrhea Pertussis Vaccines AdvReac fever/seizu Verified 09/27/21 07:55 re pseudoephedrine HCl AdvReac chest Verified 09/27/21 07:55 [From Sudafed] pain/tachycardia sulfamethoxazole AdvReac Nausea & Verified 09/27/21 07:55 [From Bactrim] Vomiting trimethoprim [From Bactrim] AdvReac Nausea & Verified 09/27/21 07:55 Vomiting Review of Systems ROS Statement: Those systems with pertinent positive or pertinent negative responses have been documented in the HPI. ROS Other: All systems not noted in ROS Statement are negative. Past Medical History Past Medical History: CVA/TIA, Diabetes Mellitus, Deep Vein Thrombosis (DVT), Neurologic Disorder, Syncope, Thyroid Disorder Additional Past Medical History / Comment(s): port a cath rt chest , STROKE LIKE EPISODE D/T MITOCHRONDIAL DISEASE HAD WORK UP DONE AT [facility]. Dysautonomia, idiopathic intracranial HTN, lupus/ per pt last LUPUS ANTICOAGULANTS antiphosolipid test 06/10 neg., ana maria's disease, lymphedema Lt arm d/t DVTs,avoid use of lt arm for b/p,iv,blood draws, v-tach, pituitary microadenoma. patent foramen ovale, narcolepsy, gastropareis, HX orthostatic hypotension/syncope, migraines with hemiplegia, pernicious anemia, polycystic ovarian syndrome, neuropathy bilateral legs/feet - mild, uti's. neurogenic bladder, stress incontinence, uses wheelchair, able to transfer and walk few steps History of Any Multi-Drug Resistant Organisms: ESBL, MRSA Date of last positivie culture/infection: 03/09/17 MRSA/ 05/17/18 ESBL MDRO Source:: MRSA LEFT ARM,/ESBL URINE ECOLI Past Surgical History: Cholecystectomy, Uterine Ablation Additional Past Surgical History / Comment(s): colonscopy/egd, angie, PORT-A -CATH INSERTION, Past Anesthesia/Blood Transfusion Reactions: Previous Problems w/ Anesthesia Additional Past Anesthesia/Blood Transfusion Reaction / Comment(s): patient states "It takes a lot of anesthesia for my body to react". Pt has received blood in past without reaction. pt has met with anesthesia-will bring in a summary page for anesthesia r/t mitochondrial disease Past Psychological History: Bipolar, Depression Smoking Status: Never smoker Past Alcohol Use History: None Reported Past Drug Use History: None Reported - Past Family History Brother(s) Family Medical History: Diabetes Mellitus, Hyperlipidemia, Hypertension Additional Family Medical History / Comment(s): Patient states she has 1 brother with no major medical problems. Father Family Medical History: Diabetes Mellitus, Hyperlipidemia, Hypertension Additional Family Medical History / Comment(s): DAD IS 70 YEARS OLD. Patient states she does not have any contact with her father and does not know his medical history. Mother Family Medical History: CVA/TIA, Deep Vein Thrombosis (DVT) Additional Family Medical History / Comment(s): antiphospholipid antibody syndrome lupus dementia General Exam Limitations: physical limitation General appearance: alert, in no apparent distress Head exam: Present: atraumatic, normocephalic, normal inspection Eye exam: Present: normal appearance, PERRL, EOMI. Absent: scleral icterus, conjunctival injection, periorbital swelling ENT exam: Present: normal exam, mucous membranes moist Neck exam: Present: normal inspection. Absent: tenderness, meningismus, lymphadenopathy Respiratory exam: Present: normal lung sounds bilaterally. Absent: respiratory distress, wheezes, rales, rhonchi, stridor Cardiovascular Exam: Present: regular rate, normal rhythm, normal heart sounds. Absent: systolic murmur, diastolic murmur, rubs, gallop, clicks Course Vital Signs 09/27/21 07:51 Temperature 99.4 F Pulse Rate 86 Respiratory 18 Rate Blood Pressure 137/86 O2 Sat by Pulse 98 Oximetry Medical Decision Making - Medical Decision Making Patient did have positive blood cultures preliminary this may be contaminant though patient reports having purulent discharge on her needle of her porch. She did have repeat labs, blood cultures drawn off a port and peripheral area I did discuss the case with on-call Dr. Pappas who accepts admission with consult to Dr. Couch pending results - Lab Data Result diagrams: 09/27/21 08:54 09/27/21 08:54 Lab Results 09/27/21 09/27/21 09/27/21 Range/Units 08:54 08:54 09:06 WBC 10.0 (3.8-10.6) k/uL RBC 4.37 (3.80-5.40) m/uL Hgb 12.9 (11.4-16.0) gm/dL Hct 39.3 (34.0-46.0) % MCV 90.0 (80.0-100.0) fL MCH 29.5 (25.0-35.0) pg MCHC 32.8 (31.0-37.0) g/dL RDW 13.7 (11.5-15.5) % Plt Count 375 (150-450) k/uL MPV 7.2 Neutrophils % 74 % Lymphocytes % 15 % Monocytes % 5 % Eosinophils % 4 % Basophils % 1 % Neutrophils # 7.4 (1.3-7.7) k/uL Lymphocytes # 1.5 (1.0-4.8) k/uL Monocytes # 0.5 (0-1.0) k/uL Eosinophils # 0.4 (0-0.7) k/uL Basophils # 0.1 (0-0.2) k/uL Sodium 136 L (137-145) mmol/L Potassium 4.4 (3.5-5.1) mmol/L Chloride 103 (98-107) mmol/L Carbon Dioxide 20 L (22-30) mmol/L Anion Gap 13 mmol/L BUN 14 (7-17) mg/dL Creatinine 0.77 (0.52-1.04) mg/dL Est GFR (CKD-EPI)AfAm >90 (>60 ml/min/1.73 sqM) Est GFR (CKD-EPI)NonAf >90 (>60 ml/min/1.73 sqM) Glucose 264 H (74-99) mg/dL Calcium 9.9 (8.4-10.2) mg/dL Total Bilirubin 0.3 (0.2-1.3) mg/dL AST 25 (14-36) U/L ALT 24 (4-34) U/L Alkaline Phosphatase 76 (38-126) U/L Total Protein 7.2 (6.3-8.2) g/dL Albumin 4.4 (3.5-5.0) g/dL Urine Color Yellow Urine Appearance Clear (Clear) Urine pH 5.5 (5.0-8.0) Ur Specific [place] 1.029 (1.001-1.035) Urine Protein Negative (Negative) Urine Glucose (UA) Negative (Negative) Urine Ketones Negative (Negative) Urine Blood Negative (Negative) Urine Nitrite Negative (Negative) Urine Bilirubin Negative (Negative) Urine Urobilinogen <2.0 (<2.0) mg/dL Ur Leukocyte Esterase Negative (Negative) Disposition Clinical Impression: Positive blood culture Disposition: ADMITTED IP TO THIS HOSP Condition: Fair Referrals: Julissa Montano III, MD [Primary Care Provider] - 1-2 days
[2021-09-27 09:20] LABS: Appearance,Urine Clear (Clear); Bilirubin,Urine Negative (Negative); Blood,Urine Negative (Negative); Color,Urine Yellow; Glucose,Urine (UA) Negative (Negative); Ketones,Urine Negative (Negative); Leukocyte Esterase,Urine Negative (Negative); Nitrite,Urine Negative (Negative); PH, Urine 5.5 (5.0-8.0); Protein,Urine Negative (Negative); Specific Gravity,Urine 1.029 (1.001-1.035); Urobilinogen,Urine <2.0 mg/dL (<2.0)
[2021-09-27] MEDS ORDERED: NALOXONE 0.4 MG/ML 1 ML VIAL IV PRN (09:55)
[2021-09-27] MEDS ORDERED: VANCOMYCIN 2,000 MG in SODIUM CHLORIDE 0.9% 500 ML 500 ML IVPB ONE (10:00)
[2021-09-27] MEDS: SODIUM CHLORIDE 0.9% 1,000 ML IV SCH (10:57)
[2021-09-27] MEDS: ONDANSETRON 4 MG/2 ML VIAL IVP PRN (15:01)
[2021-09-27] MEDS: IBUPROFEN 600 MG TAB PO PRN (15:02)
[2021-09-27] MEDS ORDERED: ALBUTEROL NEBULIZED 2.5 MG/3 ML INHALATION PRN (18:21)
[2021-09-27] MEDS ORDERED: PROMETHAZINE 25 MG TAB PO PRN (18:21)
[2021-09-27] MEDS: ACETAMINOPHEN TAB 325 MG TAB PO PRN (19:16)
[2021-09-27 20:41] LABS: Glucose,Whole Blood 118 mg/dL (75-99)
[2021-09-27] MEDS: VANCOMYCIN 2,000 MG in SODIUM CHLORIDE 0.9% 500 ML 500 ML IVPB SCH (20:41)
[2021-09-27] MEDS: busPIRone HCl 10 MG TAB PO SCH (20:43)
[2021-09-27] MEDS: GABAPENTIN 400 MG CAP PO SCH (20:44)
[2021-09-27] MEDS: BACLOFEN 10 MG TAB PO PRN (20:44)
[2021-09-27] MEDS: diphenhydrAMINE 25 MG CAP PO SCH (20:45)
[2021-09-27] MEDS: RIVAROXABAN 20 MG TAB PO SCH (20:45)
[2021-09-27] MEDS: TRIMETHOPRIM 100 MG TAB PO SCH (20:46)
[2021-09-27] MEDS: FENOFIBRATE 160 MG TAB PO SCH (20:47)
[2021-09-27] MEDS: LITHIUM CARBONATE 300 MG CAP PO SCH (20:47)
[2021-09-27] MEDS: INSULIN ASPART (NovoLOG) 100 UNIT/ML VIAL SQ SCH (20:50)
--- NOTE | 2021-09-27 22:14 | P.HPIM ---
History of Present Illness H&P Date: 09/27/21 Chief Complaint: Positive blood cultures Ms. Lam is a 41-year-old female with a past medical history of CVA/TIA, diabetes mellitus, DVT, dysautonomia, gastroparesis, orthostatic hypotension/syncope, pernicious anemia, obesity already, neuropathy of bilateral lower extremities, mitochondrial disorder causing myotonic dystrophy coming in the hospital stating that she was called by her primary care physician to get admitted to the hospital because of positive blood cultures. Patient states that she has a Mediport, that she uses for IV hydration. She got her port removed on . She noticed greenish pus at the tip of the needle and also that she was having soreness and tenderness around the port area. She was also having mild chills and feeling feverish at the beginning of the week. But patient also mentions that she "her Covid vaccine booster shot and thought that the fever could be related to her Covid vaccine. She also mentions that she used Keflex for her left foot cellulitis that she completed earlier this week. She was told that her blood cultures were positive which were drawn yesterday morning and so she came in for admission. At the time of admission patient's vitals temperature 99.4, heart rate 86, respiratory 18, blood pressure 137/86 saturating at 98% on room air. On reviewing her labs white count of 10 hemoglobin 12.9, platelets 375. Sodium 136, potassium 4.4, chloride 103, bicarb 20, BUN 14, creatinine 0.77 urine analysis was negative for leukocyte esterase and nitrates. Coronavirus PCR is negative. Patient was given a dose of vancomycin in the ED and admitted for further management. Review of Systems REVIEW OF SYSTEMS: CONSTITUTIONAL: Mild fever, no malaise, no fatigue. HEENT: No recent visual problems or hearing problems. Denied any sore throat. CARDIOVASCULAR: No chest pain, orthopnea, PND, no palpitations, no syncope. PULMONARY: no hemoptysis. GASTROINTESTINAL: No diarrhea, no nausea, no vomiting, no abdominal pain. NEUROLOGICAL: No headaches, no weakness, no numbness. HEMATOLOGICAL: Denies any bleeding or petechiae. GENITOURINARY: Denies any burning micturition, frequency, or urgency. MUSCULOSKELETAL/RHEUMATOLOGICAL:Myotonic Dystrophy ENDOCRINE: Denies any polyuria or polydipsia. The rest of the 14-point review of systems is negative. Past Medical History Past Medical History: CVA/TIA, Diabetes Mellitus, Deep Vein Thrombosis (DVT), Neurologic Disorder, Syncope, Thyroid Disorder Additional Past Medical History / Comment(s): port a cath rt chest , STROKE LIKE EPISODE D/T MITOCHRONDIAL DISEASE HAD WORK UP DONE AT [facility]. Dysautonomia, idiopathic intracranial HTN, lupus/ per pt last LUPUS ANTICOAGULANTS antiphosolipid test 06/10 neg., emily's disease, lymphedema Lt arm d/t DVTs,avoid use of lt arm for b/p,iv,blood draws, v-tach, pituitary microadenoma. patent foramen ovale, narcolepsy, gastropareis, HX orthostatic hypotension/syncope, migraines with hemiplegia, pernicious anemia, polycystic ovarian syndrome, neuropathy bilateral legs/feet - mild, uti's. neurogenic bladder, stress incontinence, uses wheelchair, able to transfer and walk few steps History of Any Multi-Drug Resistant Organisms: ESBL, MRSA Date of last positivie culture/infection: 03/09/17 MRSA/ 05/17/18 ESBL MDRO Source:: MRSA LEFT ARM,/ESBL URINE ECOLI Past Surgical History: Cholecystectomy, Uterine Ablation Additional Past Surgical History / Comment(s): colonscopy/egd, angie, PORT-A -CATH INSERTION, Past Anesthesia/Blood Transfusion Reactions: Previous Problems w/ Anesthesia Additional Past Anesthesia/Blood Transfusion Reaction / Comment(s): patient states "It takes a lot of anesthesia for my body to react". Pt has received blood in past without reaction. pt has met with anesthesia-will bring in a summary page for anesthesia r/t mitochondrial disease Past Psychological History: Bipolar, Depression Additional Psychological History / Comment(s): . Smoking Status: Never smoker Past Alcohol Use History: None Reported Additional Past Alcohol Use History / Comment(s): . Past Drug Use History: None Reported - Past Family History Brother(s) Family Medical History: Diabetes Mellitus, Hyperlipidemia, Hypertension Additional Family Medical History / Comment(s): Patient states she has 1 brother with no major medical problems. Father Family Medical History: Diabetes Mellitus, Hyperlipidemia, Hypertension Additional Family Medical History / Comment(s): DAD IS 70 YEARS OLD. Patient states she does not have any contact with her father and does not know his medical history. Mother Family Medical History: CVA/TIA, Deep Vein Thrombosis (DVT) Additional Family Medical History / Comment(s): antiphospholipid antibody syndrome lupus dementia Medications and Allergies Home Medications Medication Instructions Recorded Confirmed Type Levothyroxine Sodium [Synthroid] 100 mcg PO DAILY 01/16/19 09/27/21 History modafiniL [Provigil] 200 mg PO DAILY tab 03/07/19 09/27/21 Rx Methenamine Hippurate 1 gm PO BID 07/12/19 09/27/21 History Insulin Aspart [NovoLOG Flexpen] See Protocol SQ AC-TID 10/08/19 09/27/21 History Mirabegron [Myrbetriq] 25 mg PO DAILY 10/08/19 09/27/21 History Fenofibrate [Lofibra] 160 mg PO HS tab 10/17/19 09/27/21 Rx Gabapentin [Neurontin] 400 mg PO TID cap 10/17/19 09/27/21 Rx Metoprolol Succinate (ER) [Toprol 50 mg PO DAILY tab.er.24h 10/17/19 09/27/21 Rx XL] Rivaroxaban [Xarelto] 20 mg PO HS tab 10/17/19 09/27/21 Rx Trimethoprim [Trimpex] 100 mg PO HS tab 10/17/19 09/27/21 Rx Acetaminophen Tab [Tylenol] 650 mg PO Q6H PRN 11/29/19 09/27/21 History Metolius Carbonate 900 mg PO HS 11/29/19 09/27/21 History Promethazine [Phenergan] 25 mg PO Q6H PRN 11/30/19 09/27/21 History Levothyroxine Sodium [Synthroid] 125 mcg PO MOTUWETH 12/28/19 09/27/21 History Albuterol Inhaler [Ventolin Hfa 2 puff INHALATION RT-Q4H PRN 09/19/20 09/27/21 History Inhaler] Clonidine Er 0.1mg 0.1 mg PO BID 09/19/20 09/27/21 History Dexlansoprazole [Dexilant] 60 mg PO DAILY 09/19/20 09/27/21 History Galcanezumab-Gnlm [Emgality Pen] 120 mg SQ Q30D 09/19/20 09/27/21 History Insulin Glargine,Hum.rec.anlog 70 unit SQ DAILY 09/19/20 09/27/21 History [Lantus Solostar Pen] Meloxicam [Mobic] 15 mg PO DAILY 09/19/20 09/27/21 History Rizatriptan Benzoate [Rizatriptan] 5 mg PO BID PRN 09/19/20 09/27/21 History Sodium Chloride 0.9% Iv 1,000 ml IV DAILY 09/19/20 09/27/21 History Brexpiprazole [Rexulti] 0.5 mg PO HS 06/01/21 09/27/21 History Cyanocobalamin (Vitamin B-12) 1,000 mcg PO DAILY 06/01/21 09/27/21 History [Vitamin B-12] Dextroamphetamine/Amphetamine 10 mg PO BID 06/01/21 09/27/21 History [Adderall] Ezetimibe [Zetia] 10 mg PO DAILY 06/01/21 09/27/21 History busPIRone HCL 30 mg PO BID 06/01/21 09/27/21 History Baclofen [Lioresal] 20 mg PO Q12HR PRN 06/02/21 09/27/21 History hydrOXYzine pamoate [Vistaril] 100 mg PO BID PRN 06/02/21 09/27/21 History HYDROcodone/APAP 5-325MG [[place] 1 tab PO Q6HR PRN 3 Days #12 tab 06/04/21 09/27/21 Rx 5-325] Fluticasone/Vilanterol [Breo 1 puff INHALATION RT-DAILY 09/27/21 09/27/21 History Ellipta 100-25 Mcg Inhaler] Fluticasone/Vilanterol [Breo 1 inhalation INHALATION DAILY 09/27/21 09/27/21 History Ellipta 200-25 Mcg Inhaler] Loratadine 10 mg PO DAILY 09/27/21 09/27/21 History Ondansetron Odt [Zofran Odt] 8 mg PO Q12HR PRN 09/27/21 09/27/21 History diphenhydrAMINE HCL [Benadryl] 25 capsule PO HS 09/27/21 09/27/21 History polyethylene glycoL 3350 [Miralax] 17 gm PO DAILY 09/27/21 09/27/21 History Allergies Allergy/AdvReac Type Severity Reaction Status Date / Time peanut oil Allergy Severe Nausea & Verified 09/27/21 10:54 Vomiting,itching barium sulfate Allergy Anaphylaxis Verified 09/27/21 10:54 doxepin [Doxepin] Allergy Anaphylaxis Verified 09/27/21 10:54 ephedrine Allergy Chest Verified 09/27/21 10:54 Pain/tachycardia ertapenem [From Invanz] Allergy Rash/Hives Verified 09/27/21 10:54 peanut Allergy Nausea & Verified 09/27/21 10:54 Vomiting/itching pseudoephedrine Allergy Chest Pain Verified 09/27/21 10:54 sumatriptan [From Imitrex] Allergy Hallucinati Verified 09/27/21 18:07 ons doxycycline AdvReac Nausea & Verified 09/27/21 10:54 Vomiting & Diarrhea pseudoephedrine HCl AdvReac chest Verified 09/27/21 10:54 [From Sudafed] pain/tachycardia sulfamethoxazole AdvReac Nausea & Verified 09/27/21 10:54 [From Bactrim] Vomiting Physical Exam Vitals: Vital Signs Temp Pulse Pulse Resp BP BP Pulse Ox 09/27/21 17:31 98.9 F 84 18 122/78 95 09/27/21 11:39 99 F 76 18 129/89 98 09/27/21 07:51 99.4 F 86 18 137/86 98 Intake and Output 09/27/21 09/27/21 09/27/21 06:59 14:59 22:59 Other: Weight 117.934 kg 116.8 kg PHYSICAL EXAMINATION: GENERAL: The patient is alert and oriented x3, not in any acute distress. HEENT: Pupils are round and equally reacting to light. EOMI. No scleral icterus. No conjunctival pallor. Normocephalic, atraumatic. No pharyngeal erythema. No thyromegaly. CHEST : Mediport on the right chest area, no signs of active infection,mild tenderness CARDIOVASCULAR: S1 and S2 present. No murmurs, rubs, or gallops. PULMONARY: Bilateral breath sounds diminished at the lower lung bases. ABDOMEN: Soft, nontender, nondistended, normoactive bowel sounds. No palpable organomegaly. MUSCULOSKELETAL: No joint swelling or deformity. EXTREMITIES: No cyanosis, clubbing, or pedal edema. NEUROLOGICAL: Gross neurological examination did not reveal any focal deficits. SKIN: No rashes. Results CBC & Chem 7: 09/27/21 08:54 09/27/21 08:54 Labs: Abnormal Lab Results - Last 24 Hours (Table) 09/27/21 Range/Units 08:54 Sodium 136 L (137-145) mmol/L Carbon Dioxide 20 L (22-30) mmol/L Glucose 264 H (74-99) mg/dL Thrombosis Risk Factor Assmnt - Choose All That Apply Any of the Below Risk Factors Present?: Yes Each Factor Represents 1 point: Obesity (BMI >25) Other Risk Factors: Yes Each Risk Factor Represents 3 Points: History of DVT/PE, Positive Lupus Anticoagulant Thrombosis Risk Factor Assessment Total Risk Factor Score: 7 Thrombosis Risk Factor Assessment Level: High Risk Assessment and Plan Assessment: ASSESSMENT Bacteremia with gram-positive blood cultures Source could be the Mediport History of CVA/TIA Diabetes mellitus Mitochondrial disorder~myotonic dystrophy Dysautonomia Idiopathic intracranial hypertension Emily's disease Lymphedema of the left arm History of pituitary microadenoma Gastroparesis Migraine headaches with hemiplegia History of pernicious anemia History of PCOD Bilateral neuropathy Recurrent UTIs Neurogenic bladder Stress incontinence History of DVT PLAN: Patient has blood cultures from 09/26/2021 + for gram-positive organisms, so she was given a dose of vancomycin in the ED pending speciation of the blood cultures. ID Dr. Llanes consulted for antibiotic stewardship. Patient has multiple medical comorbid conditions, restarted on her home medications. We will continue with IV fluids support. The treatment plan was discussed in detail with the patient at bedside and further recommendations depending on the progress of the patient.
--- NOTE | 2021-09-27 22:50 | P.CONS ---
History of Present Illness - Reason for Consult Consult date: 09/27/21 bacteremia Requesting physician: Alyssa Quinonez - Chief Complaint fever and draiange from port x few days - History of Present Illness History of present illness : Patient is a 41-year-old female with a past medical history significant for recurrent urinary tract infection in this patient who does have a right chest wall Mediport for IV access in this patient did have neuropathy of bilateral lower extremity secondary myocardial corneal disorder apparently worsened during response at the tip of the needle when she remove the nail for carport on patient was complaining of soreness and tenderness around the port area more of a dull aching 3-4 out of 10 no radiation patient also having some mild chills and feeling feverish beginning of the week however she was contributed that to the Covid as well as influenza vaccination for [id number] apparently the patient did have a culture drawn yesterday it seemed positive gram-positive cocci and the patient advised to come to the hospital on arrival to the ER. Temperature of 29.4 F patient did have a normal white count with no left shift kidney function was normal urine was negative howard PCR was negative patient was started on vancomycin infectious disease was consulted for further management of antibiotic therapy Review of system: CONSTITUTIONAL: Positive for weakness along with the fever. EYES: No complaint. ENT: No complaint. RESPIRATORY: No complaint. CARDIOVASCULAR: No complaint. GENITOURINARY: No complaint. GASTROINTESTINAL: No complaint. MUSCULOSKELETAL: No complaint. INTEGUMENTARY: As per history of present illness t. PSYCHOLOGIC: No complaint. ENDOCRINE: No complaint. NEUROLOGIC: No complaint. Past medical history : Reviewed, documented below Past surgical history : Reviewed, documented below Social history: Reviewed, documented below Medications: Reviewed, as documented below EXAMINATION: Vital sigans= Reviewed and documented below GENERAL DESCRIPTION: Middle-aged female lying in bed, no distress. No tachypnea or accessory muscle of respiration use. HEENT: Shows Pallor , no scleral icterus. Oral mucous membrane is dry. NECK: Trachea central, no thyromegaly. LUNGS: Unlabored breathing. Clear to auscultation anteriorly. No wheeze or crackle. HEART: S1, S2, regular rate and rhythm. ABDOMEN: Soft, no tenderness , guarding or rigidity EXTREMITIES: No edema of feet. SKIN: No rash, no masses palpable. NEUROLOGICAL: The patient is awake, alert, oriented x3, mood and affect normal. LABS AND RADIOLOGY: Reviewed results see below Assessment : 1-patient with gram-positive bacteremia source likely Mediport site infection in this patient apparently has some redness to his charge at the time of removal of the nail from the port no with evidence of staph epi bacteremia patient currently does not look toxic and may be able to cure this infection wi th antibiotic alone without the need for removal of the port Plan: 1-blood cultures will be repeated from the port and peripherally 2-vancomycin pharmacy to dose with a target trough of 15 while watching kidney function and Vanco trough closely. 3-gentle IV fluid We will follow on clinical condition and cultures to further adjust medication if needed Thank you for this consultation we will follow the patient along with you Past Medical History Past Medical History: CVA/TIA, Diabetes Mellitus, Deep Vein Thrombosis (DVT), Neurologic Disorder, Syncope, Thyroid Disorder Additional Past Medical History / Comment(s): port a cath rt chest , STROKE LIKE EPISODE D/T MITOCHRONDIAL DISEASE HAD WORK UP DONE AT [facility]. Dysautonomia, idio pathic intracranial HTN, lupus/ per pt last LUPUS ANTICOAGULANTS antiphosolipid test 06/10 neg., ana maria's disease, lymphedema Lt arm d/t DVTs,avoid use of lt arm for b/p,iv,blood draws, v-tach, pituitary microadenoma. patent foramen ovale, narcolepsy, gastropareis, HX orthostatic hypotension/syncope, migraines with hemiplegia, pernicious anemia, polycystic ovarian syndrome, neuropathy bilateral legs/feet - mild, uti's. neurogenic bladder, stress incontinence, uses wheelchair, able to transfer and walk few steps History of Any Multi-Drug Resistant Organisms: ESBL, MRSA Year Discovered:: 03/09/17 MRSA/ 05/17/18 ESBL MDRO Source:: MRSA LEFT ARM,/ESBL URINE ECOLI Past Surgical History: Cholecystectomy, Uterine Ablation Additional Past Surgical History / Comment(s): colonscopy/egd, angie, PORT-A -CATH INSERTION, Past Anesthesia/Blood Transfusion Reactions: Previous Problems w/ Anesthesia Additional Past Anesthesia/Blood Transfusion Reaction / Comm: patient states "It takes a lot of anesthesia for my body to react". Pt has received blood in past without reaction. pt has met with anesthesia-will bring in a summary page for anesthesia r/t mitochondrial disease Past Psychological History: Bipolar, Depression Smoking Status: Never smoker Past Alcohol Use History: None Reported Past Drug Use History: None Reported - Past Family History Brother(s) Family Medical History: Diabetes Mellitus, Hyperlipidemia, Hypertension Additional Family Medical History / Comment(s): Patient states she has 1 brother with no major medical problems. Father Family Medical History: Diabetes Mellitus, Hyperlipidemia, Hypertension Additional Family Medical History / Comment(s): DAD IS 70 YEARS OLD. Patient states she does not have any contact with her father and does not know his medical history. Mother Family Medical History: CVA/TIA, Deep Vein Thrombosis (DVT) Additional Family Medical History / Comment(s): antiphospholipid antibody syndrome lupus dementia Medications and Allergies Home Medications Medication Instructions Recorded Confirmed Type Levothyroxine Sodium [Synthroid] 100 mcg PO DAILY 01/16/19 09/27/21 History modafiniL [Provigil] 200 mg PO DAILY tab 03/07/19 09/27/21 Rx Methenamine Hippurate 1 gm PO BID 07/12/19 09/27/21 History Insulin Aspart [NovoLOG Flexpen] See Protocol SQ AC-TID 10/08/19 09/27/21 History Mirabegron [Myrbetriq] 25 mg PO DAILY 10/08/19 09/27/21 History Fenofibrate [Lofibra] 160 mg PO HS tab 10/17/19 09/27/21 Rx Gabapentin [Neurontin] 400 mg PO TID cap 10/17/19 09/27/21 Rx Metoprolol Succinate (ER) [Toprol 50 mg PO DAILY tab.er.24h 10/17/19 09/27/21 Rx XL] Rivaroxaban [Xarelto] 20 mg PO HS tab 10/17/19 09/27/21 Rx Trimethoprim [Trimpex] 100 mg PO HS tab 10/17/19 09/27/21 Rx Acetaminophen Tab [Tylenol] 650 mg PO Q6H PRN 11/29/19 09/27/21 History Penrose Carbonate 900 mg PO HS 11/29/19 09/27/21 History Promethazine [Phenergan] 25 mg PO Q6H PRN 11/30/19 09/27/21 History Levothyroxine Sodium [Synthroid] 125 mcg PO MOTUWETH 12/28/19 09/27/21 History Albuterol Inhaler [Ventolin Hfa 2 puff INHALATION RT-Q4H PRN 09/19/20 09/27/21 History Inhaler] Clonidine Er 0.1mg 0.1 mg PO BID 09/19/20 09/27/21 History Dexlansoprazole [Dexilant] 60 mg PO DAILY 09/19/20 09/27/21 History Galcanezumab-Gnlm [Emgality Pen] 120 mg SQ Q30D 09/19/20 09/27/21 History Insulin Glargine,Hum.rec.anlog 70 unit SQ DAILY 09/19/20 09/27/21 History [Lantus Solostar Pen] Meloxicam [Mobic] 15 mg PO DAILY 09/19/20 09/27/21 History Rizatriptan Benzoate [Rizatriptan] 5 mg PO BID PRN 09/19/20 09/27/21 History Sodium Chloride 0.9% Iv 1,000 ml IV DAILY 09/19/20 09/27/21 History Brexpiprazole [Rexulti] 0.5 mg PO HS 06/01/21 09/27/21 History Cyanocobalamin (Vitamin B-12) 1,000 mcg PO DAILY 06/01/21 09/27/21 History [Vitamin B-12] Dextroamphetamine/Amphetamine 10 mg PO BID 06/01/21 09/27/21 History [Adderall] Ezetimibe [Zetia] 10 mg PO DAILY 06/01/21 09/27/21 History busPIRone HCL 30 mg PO BID 06/01/21 09/27/21 History Baclofen [Lioresal] 20 mg PO Q12HR PRN 06/02/21 09/27/21 History hydrOXYzine pamoate [Vistaril] 100 mg PO BID PRN 06/02/21 09/27/21 History HYDROcodone/APAP 5-325MG [[place] 1 tab PO Q6HR PRN 3 Days #12 tab 06/04/21 09/27/21 Rx 5-325] Fluticasone/Vilanterol [Breo 1 puff INHALATION RT-DAILY 09/27/21 09/27/21 History Ellipta 100-25 Mcg Inhaler] Fluticasone/Vilanterol [Breo 1 inhalation INHALATION DAILY 09/27/21 09/27/21 History Ellipta 200-25 Mcg Inhaler] Loratadine 10 mg PO DAILY 09/27/21 09/27/21 History Ondansetron Odt [Zofran Odt] 8 mg PO Q12HR PRN 09/27/21 09/27/21 History diphenhydrAMINE HCL [Benadryl] 25 capsule PO HS 09/27/21 09/27/21 History polyethylene glycoL 3350 [Miralax] 17 gm PO DAILY 09/27/21 09/27/21 History Allergies Allergy/AdvReac Type Severity Reaction Status Date / Time peanut oil Allergy Severe Nausea & Verified 09/27/21 10:54 Vomiting,itching barium sulfate Allergy Anaphylaxis Verified 09/27/21 10:54 doxepin [Doxepin] Allergy Anaphylaxis Verified 09/27/21 10:54 ephedrine Allergy Chest Verified 09/27/21 10:54 Pain/tachycardia ertapenem [From Invanz] Allergy Rash/Hives Verified 09/27/21 10:54 peanut Allergy Nausea & Verified 09/27/21 10:54 Vomiting/itching pseudoephedrine Allergy Chest Pain Verified 09/27/21 10:54 sumatriptan [From Imitrex] Allergy Hallucinati Verified 09/27/21 18:07 ons doxycycline AdvReac Nausea & Verified 09/27/21 10:54 Vomiting & Diarrhea pseudoephedrine HCl AdvReac chest Verified 09/27/21 10:54 [From Sudafed] pain/tachycardia sulfamethoxazole AdvReac Nausea & Verified 09/27/21 10:54 [From Bactrim] Vomiting Physical Exam Vitals: Vital Signs Temp Pulse Resp BP Pulse Ox 09/27/21 11:39 99 F 76 18 129/89 98 09/27/21 07:51 99.4 F 86 18 137/86 98 Intake and Output 09/27/21 09/27/21 09/27/21 06:59 14:59 22:59 Other: Weight 117.934 kg Results CBC & Chem 7: 09/27/21 08:54 09/27/21 08:54 Labs: Abnormal Lab Results - Last 24 Hours (Table) 09/27/21 Range/Units 08:54 Sodium 136 L (137-145) mmol/L Carbon Dioxide 20 L (22-30) mmol/L Glucose 264 H (74-99) mg/dL
[2021-09-27] MEDS: CLONIDINE 0.1 MG PO SCH (23:46)
[2021-09-27] MEDS: Methenamine Hippurate 1 GM Tablet PO SCH (23:46)
[2021-09-27] MEDS: Brexpiprazole [Rexulti] 0.5 MG Tablet PO SCH (23:46)
[2021-09-28 06:23] LABS: Glucose,Whole Blood 174 mg/dL (75-99)
[2021-09-28] MEDS: LEVOTHYROXINE 100 MCG TAB PO SCH (06:28)
[2021-09-28] MEDS: SODIUM CHLORIDE 0.9% 1,000 ML IV SCH ×3 (06:28→21:29)
[2021-09-28] MEDS: INSULIN ASPART (NovoLOG) 100 UNIT/ML VIAL SQ SCH ×4 (06:28→21:25)
[2021-09-28 07:27] LABS: Basophils % (A) 1 %; Eosinophils # (A) 0.4 k/uL (0-0.7); Eosinophils % (A) 5 %; HCT 37.5 % (34.0-46.0); Lymphocytes # (A) 1.1 k/uL (1.0-4.8); Lymphocytes % (A) 13 %; MCV 90.8 fL (80.0-100.0); Mean Platelet Volume 7.1; Monocytes # (A) 0.4 k/uL (0-1.0); Monocytes % (A) 5 %; Neutrophils # (A) 6.5 k/uL (1.3-7.7); Neutrophils % (A) 75 %; Platelet Count 350 k/uL (150-450); RBC 4.13 m/uL (3.80-5.40); RDW 13.7 % (11.5-15.5); WBC 8.7 k/uL (3.8-10.6)
[2021-09-28 07:56] LABS: African American GFR (CKD) >90 (>60 ml/min/1.73 sqM); Anion Gap 7 mmol/L; Blood Urea Nitrogen 11 mg/dL (7-17); Calcium 9.4 mg/dL (8.4-10.2); Carbon Dioxide 21 mmol/L (22-30); Chloride 110 mmol/L (98-107); Glucose 164 mg/dL (74-99); Non-African American GFR(CKD) >90 (>60 ml/min/1.73 sqM); Potassium 4.3 mmol/L (3.5-5.1); Sodium 138 mmol/L (137-145)
[2021-09-28] MEDS: Dextroamphetamine/Amphetamine [Adderall] 10 MG Tablet PO SCH ×2 (08:14→13:05)
[2021-09-28] MEDS: CLONIDINE 0.1 MG PO SCH ×2 (08:14→21:10)
[2021-09-28] MEDS: Methenamine Hippurate 1 GM Tablet PO SCH ×2 (08:17→21:18)
[2021-09-28] MEDS: Mirabegron [Myrbetriq] 25 MG Tab.Er.24h PO SCH (08:20)
[2021-09-28] MEDS: VANCOMYCIN 2,000 MG in SODIUM CHLORIDE 0.9% 500 ML 500 ML IVPB SCH ×2 (08:57→21:25)
[2021-09-28] MEDS: polyethylene glycoL 3350 17 GM POWD.PACK PO SCH (08:57)
[2021-09-28] MEDS: PANTOPRAZOLE 40 MG TABLET PO SCH (08:58)
[2021-09-28] MEDS: METOPROLOL SUCCINATE (ER) 50 MG TAB.ER.24H PO SCH (08:58)
[2021-09-28] MEDS: LORATADINE 10 MG TAB PO SCH (08:58)
[2021-09-28] MEDS: busPIRone HCl 10 MG TAB PO SCH ×2 (08:58→21:16)
[2021-09-28] MEDS: CYANOCOBALAMIN 500 MCG TAB PO SCH (08:59)
[2021-09-28] MEDS: INSULIN DETEMIR (LEVEMIR) 100 UNIT/ML SYR SQ SCH (08:59)
[2021-09-28] MEDS: MELOXICAM 7.5 MG TAB PO SCH (08:59)
[2021-09-28] MEDS: EZETIMIBE 10 MG TAB PO SCH (08:59)
[2021-09-28] MEDS: GABAPENTIN 400 MG CAP PO SCH ×3 (08:59→21:13)
[2021-09-28] MEDS: SYMBICORT 160-4.5 MCG INHALER INHALATION SCH ×2 (09:40→09:41)
[2021-09-28 13:03] LABS: Glucose,Whole Blood 144 mg/dL (75-99)
--- NOTE | 2021-09-28 15:30 | P.PN ---
Subjective Progress Note Date: 09/28/21 Principal diagnosis: Bactremia Ms. Lam is a 41-year-old female with a past medical history of CVA/TIA, diabetes mellitus, DVT, dysautonomia, gastroparesis, orthostatic hypotension/syncope, pernicious anemia, obesity already, neuropathy of bilateral lower extremities, mitochondrial disorder causing myotonic dystrophy coming in the hospital stating that she was called by her primary care physician to get admitted to the hospital because of positive blood cultures. Patient states that she has a Mediport, that she uses for IV hydration. She got her port remov ed on . She noticed greenish pus at the tip of the needle and also that she was having soreness and tenderness around the port area. She was also having mild chills and feeling feverish at the beginning of the week. But patient also mentions that she "her Covid vaccine booster shot and thought that the fever could be related to her Covid vaccine. She also mentions that she used Keflex for her left foot cellulitis that she completed earlier this week. She was told that her blood cultures were positive which were drawn yesterday morning and so she came in for admission. At the time of admission patient's vitals temperature 99.4, heart rate 86, respiratory 18, blood pressure 137/86 saturating at 98% on room air. On reviewing her labs white count of 10 hemoglobin 12.9, platelets 375. Sodium 136, potassium 4.4, chloride 103, bicarb 20, BUN 14, creatinine 0.77 urine analysis was negative for leukocyte esterase and nitrates. Coronavirus PCR is negative. Patient was given a dose of vancomycin in the ED and admitted for further management. On 09/28/2021 - and is seen and examined at the bedside. She is comfortably lying in bed appears to be in no acute distress. She complains of mild soreness at the site of Mediport pain turning sideways. Patient denies having any fevers chills or rigors. No chest pain or palpitations. No cough or difficulty in breathing. No abdominal pain nausea vomiting or diarrhea. On reviewing the patient's vitals temperature 98.6, blood pressure 1:15/80 saturating at 97% on room air. Reviewed patient's white count of 8.7, hemoglobin 12, platelets of 350. Sodium 138,4.3, chloride 110, bicarbonate 21, BUN 11, creatinine 0.64. Medications medications have been reviewed Active Medications Acetaminophen (Acetaminophen Tab 325 Mg Tab) 650 mg PO Q6HR PRN PRN Reason: Mild Pain or Fever > 100.5 Last Admin: 09/27/21 19:16 Dose: 650 mg Documented by: Albuterol Sulfate (Albuterol Nebulized 2.5 Mg/3 Ml) 2.5 mg INHALATION RT-Q4H PRN PRN Reason: Shortness Of Breath Baclofen (Baclofen 10 Mg Tab) 20 mg PO Q12HR PRN PRN Reason: Pain Last Admin: 09/27/21 20:44 Dose: 20 mg Documented by: Budesonide/Formoterol Fumarate (Symbicort 160-4.5 Mcg Inhaler) 2 puff INHALATION RT-BID [facility] Last Admin: 09/28/21 09:41 Dose: Not Given Documented by: Buspirone HCl (Buspirone Hcl 10 Mg Tab) 30 mg PO BID [facility] Last Admin: 09/28/21 08:58 Dose: 30 mg Documented by: Cyanocobalamin (Cyanocobalamin 500 Mcg Tab) 1,000 mcg PO DAILY [facility] Last Admin: 09/28/21 08:59 Dose: 1,000 mcg Documented by: Diphenhydramine HCl (Diphenhydramine 25 Mg Cap) 25 mg PO [facility] Last Admin: 09/27/21 20:45 Dose: 25 mg Documented by: Ezetimibe (Ezetimibe 10 Mg Tab) 10 mg PO DAILY [facility] Last Admin: 09/28/21 08:59 Dose: 10 mg Documented by: Fenofibrate (Fenofibrate 160 Mg Tab) 160 mg PO [facility] Last Admin: 09/27/21 20:47 Dose: 160 mg Documented by: Gabapentin (Gabapentin 400 Mg Cap) 400 mg PO TID [facility] Last Admin: 09/28/21 08:59 Dose: 400 mg Documented by: Hydroxyzine Pamoate (Hydroxyzine Pamoate 25 Mg Cap) 100 mg PO BID PRN PRN Reason: Anxiety Vancomycin HCl 2,000 mg/ (Sodium Chloride) 500 mls @ 167 mls/hr IVPB Q12H [facility] Last Admin: 09/28/21 08:57 Dose: 167 mls/hr Documented by: Sodium Chloride (Saline 0.9%) 1,000 mls @ 75 mls/hr IV .[id number] [facility] Last Admin: 09/28/21 13:03 Dose: Not Given Documented by: Ibuprofen (Ibuprofen 600 Mg Tab) 600 mg PO Q6HR PRN PRN Reason: Pain Last Admin: 09/27/21 15:02 Dose: 600 mg Documented by: Insulin Aspart (Insulin Aspart (Novolog) 100 Unit/Ml Vial) 0 unit SQ [facility]; Protocol Last Admin: 09/28/21 13:14 Dose: 1 unit Documented by: Insulin Detemir (Insulin Detemir (Levemir) 100 Unit/Ml Syr) 70 unit SQ DAILY [facility] Last Admin: 09/28/21 08:59 Dose: 70 unit Documented by: Levothyroxine Sodium (Levothyroxine 100 Mcg Tab) 100 mcg PO DAILY@0730 [facility] Last Admin: 09/28/21 06:28 Dose: 100 mcg Documented by: Levothyroxine Sodium (Levothyroxine 125 Mcg Tab) 125 mcg PO [facility] [place] Carbonate ([place] Carbonate 300 Mg Cap) 900 mg PO [facility] Last Admin: 09/27/21 20:47 Dose: 900 mg Documented by: Loratadine (Loratadine 10 Mg Tab) 10 mg PO DAILY [facility] Last Admin: 09/28/21 08:58 Dose: 10 mg Documented by: Meloxicam (Meloxicam 7.5 Mg Tab) 15 mg PO DAILY [facility] Last Admin: 09/28/21 08:59 Dose: 15 mg Documented by: Metoprolol Succinate (Metoprolol Succinate (Er) 50 Mg Tab.Er.24h) 50 mg PO DAILY [facility] Last Admin: 09/28/21 08:58 Dose: 50 mg Documented by: Modafinil (Modafinil 200 Mg Tab) 200 mg PO DAILY [facility] Last Admin: 09/28/21 09:41 Dose: 200 mg Documented by: Naloxone HCl (Naloxone 0.4 Mg/Ml 1 Ml Vial) 0.2 mg IV Q2M PRN PRN Reason: Opioid Reversal Brexpiprazole [ Rexulti] 0.5 Mg Tablet 0.5 mg PO [facility] Last Admin: 09/27/21 23:46 Dose: Not Given Documented by: Clonidine Er 0.1mg 0.1 mg PO BID [facility] Last Admin: 09/28/21 08:14 Dose: Not Given Documented by: Dextroamphetamine/Amphetamine [ Adderall] 10 Mg Tablet) 10 mg PO BID-W/MEALS [facility] Last Admin: 09/28/21 13:05 Dose: Not Given Documented by: Methenamine Hippurate 1 Gm Tablet 1 gm PO BID [facility] Last Admin: 09/28/21 08:17 Dose: Not Given Documented by: Mirabegron [ Myrbetriq] 25 Mg Tab .Er.24h 25 mg PO DAILY [facility] Last Admin: 09/28/21 08:20 Dose: Not Given Documented by: Rizatriptan 5 Mg (Tablet) 5 mg PO BID PRN PRN Reason: Migraine Headache Ondansetron HCl (Ondansetron 4 Mg/2 Ml Vial) 4 mg IVP Q8HR PRN PRN Reason: Nausea And Vomiting Last Admin: 09/27/21 15:01 Dose: 4 mg Documented by: Pantoprazole Sodium (Pantoprazole 40 Mg Tablet) 40 mg PO DAILY [facility] Last Admin: 09/28/21 08:58 Dose: 40 mg Documented by: Polyethylene Glycol (Polyethylene Glycol 3350 17 Gm Powd.Pack) 17 gm PO DAILY [facility] Last Admin: 09/28/21 08:57 Dose: 17 gm Documented by: Promethazine HCl (Promethazine 25 Mg Tab) 25 mg PO Q6H PRN PRN Reason: Nausea Rivaroxaban (Rivaroxaban 20 Mg Tab) 20 mg PO [facility]; Protocol Last Admin: 09/27/21 20:45 Dose: 20 mg Documented by: Trimethoprim (Trimethoprim 100 Mg Tab) 100 mg PO [facility] Last Admin: 09/27/21 20:46 Dose: 100 mg Documented by: Objective - Vital Signs Vital signs: Vital Signs Temp 98.0 F 09/28/21 07:49 Pulse 70 09/28/21 07:49 Resp 15 09/28/21 07:49 BP 131/86 09/28/21 07:49 Pulse Ox 99 09/28/21 07:49 Intake & Output 09/27/21 09/28/21 09/28/21 18:59 06:59 18:59 Weight 116.8 kg Other: # Voids 1 - Exam PHYSICAL EXAMINATION: GENERAL: The patient is alert and oriented x3, not in any acute distress. HEENT: Pupils are round and equally reacting to lighNo scleral icterus. No conjunctival pallor. CHEST : Mediport on the right chest area, no signs of active infection,mild tenderness CARDIOVASCULAR: S1 and S2 present. No murmurs, rubs, or gallops. PULMONARY: Bilateral breath sounds diminished at the lower lung bases. ABDOMEN: Soft, nontender, nondistended, normoactive bowel sounds. MUSCULOSKELETAL: No joint swelling or deformity. EXTREMITIES: No cyanosis, clubbing, or pedal edema. NEUROLOGICAL: Gross neurological examination did not reveal any focal deficits. - Labs CBC & Chem 7: 09/28/21 07:04 09/28/21 07:04 Labs: Abnormal Lab Results - Last 24 Hours (Table) 09/27/21 09/28/21 09/28/21 Range/Units 20:38 06:22 07:04 Chloride 110 H (98-107) mmol/L Carbon Dioxide 21 L (22-30) mmol/L Glucose 164 H (74-99) mg/dL POC Glucose (mg/dL) 118 H 174 H (75-99) mg/dL Microbiology - Last 24 Hours (Table) 09/27/21 08:53 Blood Culture Gram Stain - Preliminary Blood 09/27/21 08:53 Blood Culture - Final Blood Assessment and Plan Assessment: ASSESSMENT Bacteremia with gram-positive blood cultures Source could be the Mediport History of CVA/TIA Diabetes mellitus Mitochondrial disorder~myotonic dystrophy Dysautonomia Idiopathic intracranial hypertension Emily's disease Lymphedema of the left arm History of pituitary microadenoma Gastroparesis Migraine headaches with hemiplegia History of pernicious anemia History of PCOD Bilateral neuropathy Recurrent UTIs Neurogenic bladder Stress incontinence History of DVT PLAN: Patient has blood cultures from 09/26/2021 + for gram-positive organisms, so she was given a dose of vancomycin in the ED pending speciation of the blood cultures. ID Dr. Llanes consulted for antibiotic stewardship- patient to be continued on vancomycin until finalization of the cultures. Repeat blood cultures are pending. Patient has multiple medical comorbid conditions, c ontinue with the current medication regimen. We will continue with IV fluids support. The treatment plan was discussed in detail with the patient at bedside and further recommendations depending on the progress of the patient. Overall prognosis remains guarded.
[2021-09-28 17:57] LABS: Glucose,Whole Blood 170 mg/dL (75-99)
[2021-09-28] MEDS: LEVOTHYROXINE 125 MCG TAB PO SCH (18:00)
[2021-09-28] MEDS: IBUPROFEN 600 MG TAB PO PRN (21:13)
[2021-09-28 21:14] LABS: Glucose,Whole Blood 178 mg/dL (75-99)
[2021-09-28] MEDS: BACLOFEN 10 MG TAB PO PRN (21:14)
[2021-09-28] MEDS: RIVAROXABAN 20 MG TAB PO SCH (21:15)
[2021-09-28] MEDS: LITHIUM CARBONATE 300 MG CAP PO SCH (21:15)
[2021-09-28] MEDS: FENOFIBRATE 160 MG TAB PO SCH (21:16)
[2021-09-28] MEDS: TRIMETHOPRIM 100 MG TAB PO SCH (21:16)
[2021-09-28] MEDS: diphenhydrAMINE 25 MG CAP PO SCH (22:29)
[2021-09-28] MEDS: hydrOXYzine pamoate 25 MG CAP PO PRN (22:30)
--- NOTE | 2021-09-28 23:25 | PN ---
PROGRESS NOTE DATE OF SERVICE: 09/28/2021 REASON FOR FOLLOWUP: Bacteremia; possible port infection. INTERVAL HISTORY: The patient is afebrile. She is breathing comfortably. Has been complaining of some discomfort around the port site. No chest pain, shortness of breath or cough. No abdominal pain or diarrhea. PHYSICAL EXAMINATION: Blood pressure 119/81 with a pulse of 79, temperature 99.1. She is 97% on room air. General description is a middle-aged female lying in bed in no distress. Respiratory system: Unlabored breathing, clear to auscultation anteriorly. Heart S1, S2. Regular rate and rhythm. Abdomen soft, no tenderness. LABS: Hemoglobin is 12.2, white count 8.7, creatinine 0.64. Blood culture from 09/27 is positive. DIAGNOSTIC IMPRESSION AND PLAN: Patient with a positive blood culture with coagulase-negative Staphylococcus, possibly related to the MediPort infection. Blood cultures will be repeated from the port and peripherally. If we are not able to clear the bacteremia, the port will need to come out; however, if the patient clears her bacteremia, she may be able to finish therapy with IV antibiotic therapy and close outpatient followup. Continue with supportive care. MMODL / IJN: [id number] /
[2021-09-28] MEDS: Brexpiprazole [Rexulti] 0.5 MG Tablet PO SCH (23:38)
[2021-09-29] MEDS: SYMBICORT 160-4.5 MCG INHALER INHALATION SCH ×2 (02:41→15:11)
[2021-09-29 07:24] LABS: African American GFR (CKD) >90 (>60 ml/min/1.73 sqM); Anion Gap 10 mmol/L; Blood Urea Nitrogen 12 mg/dL (7-17); Calcium 9.1 mg/dL (8.4-10.2); Carbon Dioxide 20 mmol/L (22-30); Chloride 110 mmol/L (98-107); Glucose 120 mg/dL (74-99); Non-African American GFR(CKD) >90 (>60 ml/min/1.73 sqM); Potassium 4.2 mmol/L (3.5-5.1); Sodium 140 mmol/L (137-145)
[2021-09-29 07:25] LABS: Basophils # (A) 0.1 k/uL (0-0.2); Basophils % (A) 1 %; Eosinophils # (A) 0.5 k/uL (0-0.7); Eosinophils % (A) 6 %; HCT 35.7 % (34.0-46.0); HGB 11.6 gm/dL (11.4-16.0); Lymphocytes % (A) 25 %; MCH 29.4 pg (25.0-35.0); MCHC 32.4 g/dL (31.0-37.0); MCV 90.8 fL (80.0-100.0); Mean Platelet Volume 7.7; Monocytes # (A) 0.4 k/uL (0-1.0); Monocytes % (A) 5 %; Neutrophils % (A) 62 %; Platelet Count 307 k/uL (150-450); RBC 3.94 m/uL (3.80-5.40); RDW 13.7 % (11.5-15.5)
[2021-09-29] MEDS: INSULIN ASPART (NovoLOG) 100 UNIT/ML VIAL SQ SCH ×4 (08:18→21:34)
[2021-09-29 08:19] LABS: Glucose,Whole Blood 123 mg/dL (75-99)
[2021-09-29] MEDS: LEVOTHYROXINE 100 MCG TAB PO SCH (08:24)
[2021-09-29] MEDS: Dextroamphetamine/Amphetamine [Adderall] 10 MG Tablet PO SCH ×2 (08:30→17:44)
[2021-09-29] MEDS: VANCOMYCIN 2,000 MG in SODIUM CHLORIDE 0.9% 500 ML 500 ML IVPB SCH ×2 (08:38→20:54)
[2021-09-29] MEDS: PANTOPRAZOLE 40 MG TABLET PO SCH (08:43)
[2021-09-29] MEDS: LORATADINE 10 MG TAB PO SCH (08:43)
[2021-09-29] MEDS: CYANOCOBALAMIN 500 MCG TAB PO SCH (08:43)
[2021-09-29] MEDS: GABAPENTIN 400 MG CAP PO SCH ×3 (08:43→20:41)
[2021-09-29] MEDS: polyethylene glycoL 3350 17 GM POWD.PACK PO SCH (08:43)
[2021-09-29] MEDS: EZETIMIBE 10 MG TAB PO SCH (08:43)
[2021-09-29] MEDS: busPIRone HCl 10 MG TAB PO SCH ×2 (08:43→20:42)
[2021-09-29] MEDS: MELOXICAM 7.5 MG TAB PO SCH (08:44)
[2021-09-29] MEDS: METOPROLOL SUCCINATE (ER) 50 MG TAB.ER.24H PO SCH (08:44)
[2021-09-29] MEDS: INSULIN DETEMIR (LEVEMIR) 100 UNIT/ML SYR SQ SCH (08:47)
[2021-09-29] MEDS: ONDANSETRON 4 MG/2 ML VIAL IVP PRN ×2 (08:51→15:58)
[2021-09-29] MEDS: Mirabegron [Myrbetriq] 25 MG Tab.Er.24h PO SCH (12:10)
[2021-09-29] MEDS: Methenamine Hippurate 1 GM Tablet PO SCH ×2 (12:10→20:38)
[2021-09-29] MEDS: CLONIDINE 0.1 MG PO SCH ×2 (12:10→20:30)
[2021-09-29 12:48] LABS: Glucose,Whole Blood 128 mg/dL (75-99)
[2021-09-29 17:44] LABS: Glucose,Whole Blood 108 mg/dL (75-99)
[2021-09-29] MEDS: LEVOTHYROXINE 125 MCG TAB PO SCH (18:52)
--- NOTE | 2021-09-29 18:56 | PN ---
PROGRESS NOTE DATE OF SERVICE: 09/29/2021. This 41-year-old woman who was admitted with Gram-positive bacteremia had Staph epi grown from the culture. The patient had a port placed on the right chest recently, where the patient is complaining of mild discomfort. The patient is on vancomycin and Dr. Llanes is following the patient closely. The blood cultures are being repeated. No chest pain. No palpitations. No fever. PHYSICAL EXAMINATION: Alert and oriented x. Pulse 69, blood pressure 127/82, respiration 18, temperature 98.8, pulse ox 97% on room air. HEENT: Conjunctivae normal. NECK: No jugular venous distention. CARDIOVASCULAR: S1, S2 muffled. RESPIRATION: Breath sounds diminished at the bases. A few scattered rhonchi. ABDOMEN: Soft. NERVOUS SYSTEM: No focal deficit. Status post noted. LABS: CBC within normal limits. Glucose 120. ASSESSMENT: 1. Acute bacteremia with possibly Staphylococcus epidermidis sepsis. 2. Status post right chest MediPort. 3. History of cerebrovascular accident, transient ischemic attack. 4. Diabetes mellitus, type 2. 5. Mitochondrial myopathy and myotonic dystrophy. 6. Dysautonomia. 7. Idiopathic intracranial hypertension. 8. Emily disease. 9. Lymphedema of the left arm. 10.History of pituitary microadenoma. 11.History of gastroparesis. 12.History of migraine headaches . 13.History of pernicious anemia. 14.History of PCOd. 15.Bilateral peripheral neuropathy. 16.Recurrent urinary tract infections. 17.Neurogenic bladder. 18.History of incontinence. 19.History of deep vein thrombosis. RECOMMENDATIONS AND DISCUSSION: I recommend to continue current medications, continue with symptomatic treatment. Otherwise at this time I would recommend continuing with the antibiotics. Closely follow with Infectious Disease. Repeat culture has been ordered. Guarded prognosis. Further recommendations to follow. MMODL / IJN: [id number] / [facility]
[2021-09-29] MEDS ORDERED: VANCOMYCIN TROUGH DUE 1 EACH MISC MISCELLANE ONE (20:00)
[2021-09-29] MEDS: Brexpiprazole [Rexulti] 0.5 MG Tablet PO SCH (20:38)
[2021-09-29] MEDS: TRIMETHOPRIM 100 MG TAB PO SCH (20:40)
[2021-09-29] MEDS: LITHIUM CARBONATE 300 MG CAP PO SCH (20:41)
[2021-09-29] MEDS: RIVAROXABAN 20 MG TAB PO SCH (20:41)
[2021-09-29] MEDS: FENOFIBRATE 160 MG TAB PO SCH (20:41)
[2021-09-29 20:53] LABS: Glucose,Whole Blood 113 mg/dL (75-99)
[2021-09-29] MEDS: SODIUM CHLORIDE 0.9% 1,000 ML IV SCH (20:53)
[2021-09-29] MEDS: diphenhydrAMINE 25 MG CAP PO SCH (22:14)
[2021-09-29] MEDS: hydrOXYzine pamoate 25 MG CAP PO PRN (22:15)
--- NOTE | 2021-09-30 00:12 | PN ---
PROGRESS NOTE DATE OF SERVICE: 09/29/2021 REASON FOR FOLLOWUP: Bacteremia secondary to MediPort infection. INTERVAL HISTORY: The patient is afebrile. She is breathing comfortably. Overall pain and discomfort to the port site has slightly decreased. The patient denies having any chest pain or shortness of breath or cough. No nausea, no vomiting. No abdominal pain or diarrhea. PHYSICAL EXAMINATION: Blood pressure 129/80 with a pulse of 73, temperature 98.7. She is 96% on room air. General description is a middle-aged female lying in bed in no distress. Respiratory system: Unlabored breathing, decreased intensity of breath sounds. No wheeze. Heart S1, S2. Regular rate and rhythm. Abdomen soft, no tenderness. LABS: Blood culture from yesterday is positive as well. DIAGNOSTIC IMPRESSION AND PLAN: Patient with Staphylococcus epidermidis bacteremia secondary to MediPort infection. Cultures will be repeated. If any of those come back patient positive as well, she will need removal of the port. Patient is covered with vancomycin; to continue and monitor clinical course closely. MMODL / IJN: [id number] /
[2021-09-30 06:05] LABS: Glucose,Whole Blood 127 mg/dL (75-99)
[2021-09-30] MEDS: Dextroamphetamine/Amphetamine [Adderall] 10 MG Tablet PO SCH ×2 (06:08→18:04)
[2021-09-30] MEDS: LEVOTHYROXINE 100 MCG TAB PO SCH (06:08)
[2021-09-30] MEDS: LEVOTHYROXINE 125 MCG TAB PO SCH (06:09)
[2021-09-30] MEDS: INSULIN ASPART (NovoLOG) 100 UNIT/ML VIAL SQ SCH ×4 (06:16→21:13)
[2021-09-30] MEDS: LORATADINE 10 MG TAB PO SCH (07:51)
[2021-09-30 07:52] LABS: African American GFR (CKD) >90 (>60 ml/min/1.73 sqM); Non-African American GFR(CKD) 85 (>60 ml/min/1.73 sqM)
[2021-09-30] MEDS: PANTOPRAZOLE 40 MG TABLET PO SCH (07:52)
[2021-09-30] MEDS: GABAPENTIN 400 MG CAP PO SCH ×3 (07:52→21:02)
[2021-09-30] MEDS: Methenamine Hippurate 1 GM Tablet PO SCH ×2 (07:52→20:51)
[2021-09-30] MEDS: INSULIN DETEMIR (LEVEMIR) 100 UNIT/ML SYR SQ SCH (07:55)
[2021-09-30] MEDS: polyethylene glycoL 3350 17 GM POWD.PACK PO SCH (07:56)
[2021-09-30] MEDS: METOPROLOL SUCCINATE (ER) 50 MG TAB.ER.24H PO SCH (07:57)
[2021-09-30] MEDS: busPIRone HCl 10 MG TAB PO SCH ×2 (07:59→20:53)
[2021-09-30] MEDS: EZETIMIBE 10 MG TAB PO SCH (07:59)
[2021-09-30] MEDS: MELOXICAM 7.5 MG TAB PO SCH (08:01)
[2021-09-30] MEDS: CYANOCOBALAMIN 500 MCG TAB PO SCH (08:02)
[2021-09-30] MEDS: Mirabegron [Myrbetriq] 25 MG Tab.Er.24h PO SCH (08:05)
[2021-09-30] MEDS: CLONIDINE 0.1 MG PO SCH ×2 (08:05→20:57)
[2021-09-30] MEDS: VANCOMYCIN 2,000 MG in SODIUM CHLORIDE 0.9% 500 ML 500 ML IVPB SCH ×2 (08:11→21:03)
[2021-09-30] MEDS: BREO ELLIPTA INHALATION SCH (08:59)
[2021-09-30] MEDS: ONDANSETRON 4 MG/2 ML VIAL IVP PRN ×2 (10:22→22:27)
[2021-09-30 13:08] LABS: Glucose,Whole Blood 177 mg/dL (75-99)
[2021-09-30] MEDS: SODIUM CHLORIDE 0.9% 1,000 ML IV SCH ×2 (13:13→21:13)
--- NOTE | 2021-09-30 18:07 | PN ---
PROGRESS NOTE DATE OF SERVICE: 09/30/2021 This 41-year-old woman who was admitted with Gram-positive bacteremia had coagulase- negative Staph grown from the cultures. Multiple cultures subsequently after 08/27 have been reported negative so far. No chest pain. No palpitations. No fever. Dr. Llanes is following the patient closely. PHYSICAL EXAMINATION: Alert and oriented x3. Pulse 78, blood pressure 119/80, respiration 20, temperature 98.2, pulse ox 98% on room air. HEENT: Conjunctivae normal. NECK: No jugular venous distention. CARDIOVASCULAR: S1, S2 muffled. RESPIRATION: Breath sounds diminished at the bases. No rhonchi. No crackles. ABDOMEN: Soft, nontender. LEGS: No edema. No swelling. NERVOUS SYSTEM: No focal deficit. Examination of chest shows right Port-A-Cath present. LABS AT THIS TIME: Normal CBC. CO2 is 20. ASSESSMENT: 1. Acute bacteremia with possible coagulase-negative Staph, possibly from MediPort. 2. Status post right chest MediPort. 3. History of cerebrovascular accident, transient ischemic attack. 4. Diabetes mellitus, type 2. 5. Mitochondrial myopathy and myotonic dystrophy. 6. Dysautonomia. 7. Idiopathic intracranial hypertension. 8. Emily's disease. 9. Lymphedema of the left arm. 10.History of pituitary microadenoma. 11.History of gastroparesis. 12.History of migraine headaches. 13.History of pernicious anemia. 14.History of polycystic ovarian disease. 15.Bilateral peripheral neuropathy. 16.Recurrent urinary tract infections. 17.Neurogenic bladder history. 18.History of incontinence. 19.History of deep vein thrombosis. RECOMMENDATIONS AND DISCUSSION: I recommend to continue current medications, continue with symptomatic treatment. Continue with the IV antibiotics. Follow the final cultures. Closely follow with Dr. Llanes. Prognosis guarded. Further recommendations to follow. MMODL / IJN: [id number] /
[2021-09-30 18:14] LABS: Glucose,Whole Blood 161 mg/dL (75-99)
[2021-09-30] MEDS: Brexpiprazole [Rexulti] 0.5 MG Tablet PO SCH (20:49)
[2021-09-30] MEDS: LITHIUM CARBONATE 300 MG CAP PO SCH (20:53)
[2021-09-30] MEDS: TRIMETHOPRIM 100 MG TAB PO SCH (20:53)
[2021-09-30] MEDS: RIVAROXABAN 20 MG TAB PO SCH (20:55)
[2021-09-30] MEDS: FENOFIBRATE 160 MG TAB PO SCH (20:55)
[2021-09-30] MEDS: ACETAMINOPHEN TAB 325 MG TAB PO PRN (21:02)
[2021-09-30 21:09] LABS: Glucose,Whole Blood 152 mg/dL (75-99)
[2021-09-30] MEDS: diphenhydrAMINE 25 MG CAP PO SCH (22:27)
--- NOTE | 2021-09-30 22:43 | PN ---
PROGRESS NOTE DATE OF SERVICE: 09/30/2021 REASON FOR FOLLOWUP: Staph epi bacteremia, Mediport infection. INTERVAL HISTORY: The patient is afebrile. The patient is feeling better, breathing comfortably. Overall pain and discomfort to the port site has decreased. No chest pain, shortness of breath or cough. No abdominal pain or diarrhea. PHYSICAL EXAMINATION: Blood pressure is 120/75 with a pulse of 82, temperature 98.9. She is 96% on room air. General description is a middle-aged female lying in bed in no distress. Respiratory system: Unlabored breathing, clear to auscultation anteriorly. Heart S1, S2. Regular rate and rhythm. Abdomen soft, no tenderness. LABS: Blood cultures from 09/28 and 09/29 have been negative so far. DIAGNOSTIC IMPRESSION AND PLAN: Patient with Staphylococcus bacteremia secondary to MediPort infection. Patient seems to have cleared her bacteremia. We can try to save the port 2 weeks of IV vancomycin. All of her questions and concerns were answered. Continue with supportive care. MMODL / IJN: [id number] /
[2021-10-01 06:48] LABS: Glucose,Whole Blood 139 mg/dL (75-99)
[2021-10-01] MEDS: INSULIN ASPART (NovoLOG) 100 UNIT/ML VIAL SQ SCH ×3 (06:53→18:22)
[2021-10-01] MEDS: LEVOTHYROXINE 100 MCG TAB PO SCH (06:53)
[2021-10-01] MEDS: LEVOTHYROXINE 125 MCG TAB PO SCH (06:53)
[2021-10-01 08:04] LABS: African American GFR (CKD) >90 (>60 ml/min/1.73 sqM); Non-African American GFR(CKD) >90 (>60 ml/min/1.73 sqM)
[2021-10-01] MEDS: Dextroamphetamine/Amphetamine [Adderall] 10 MG Tablet PO SCH ×2 (08:15→16:16)
[2021-10-01] MEDS: polyethylene glycoL 3350 17 GM POWD.PACK PO SCH (08:15)
[2021-10-01] MEDS: PANTOPRAZOLE 40 MG TABLET PO SCH (08:15)
[2021-10-01] MEDS: LORATADINE 10 MG TAB PO SCH (08:16)
[2021-10-01] MEDS: GABAPENTIN 400 MG CAP PO SCH ×2 (08:16→17:05)
[2021-10-01] MEDS: INSULIN DETEMIR (LEVEMIR) 100 UNIT/ML SYR SQ SCH (08:16)
[2021-10-01] MEDS: MELOXICAM 7.5 MG TAB PO SCH (08:17)
[2021-10-01] MEDS: busPIRone HCl 10 MG TAB PO SCH (08:18)
[2021-10-01] MEDS: CYANOCOBALAMIN 500 MCG TAB PO SCH (08:18)
[2021-10-01] MEDS: EZETIMIBE 10 MG TAB PO SCH (08:18)
[2021-10-01] MEDS: METOPROLOL SUCCINATE (ER) 50 MG TAB.ER.24H PO SCH (08:19)
[2021-10-01] MEDS: CLONIDINE 0.1 MG PO SCH (08:19)
[2021-10-01] MEDS: Mirabegron [Myrbetriq] 25 MG Tab.Er.24h PO SCH (08:20)
[2021-10-01] MEDS: Methenamine Hippurate 1 GM Tablet PO SCH (08:22)
[2021-10-01] MEDS: BREO ELLIPTA INHALATION SCH (08:56)
[2021-10-01] MEDS: VANCOMYCIN 2,000 MG in SODIUM CHLORIDE 0.9% 500 ML 500 ML IVPB SCH ×2 (09:23→17:01)
[2021-10-01] MEDS: IBUPROFEN 600 MG TAB PO PRN (10:14)
[2021-10-01] MEDS ORDERED: BUTALB/APAP/CAFF 50-325-40MG TAB PO PRN (11:06)
[2021-10-01] MEDS: ONDANSETRON 4 MG/2 ML VIAL IVP PRN (12:07)
[2021-10-01 13:19] LABS: Glucose,Whole Blood 100 mg/dL (75-99)
[2021-10-01 18:05] LABS: Glucose,Whole Blood 92 mg/dL (75-99)
--- NOTE | 2021-10-01 18:12 | XR ---
EXAMINATION: XR chest 1V portable DATE AND TIME: 10/01/2021 6:07 PM CLINICAL INDICATION: chf TECHNIQUE: AP upright portable COMPARISON: 07/20/2020 FINDINGS: The lungs are clear. The pleural spaces are negative. Right IJ central line tip superimposed over the distal SVC. The cardiac silhouette is not enlarged. The remainder of the mediastinal silhouette is unremarkable. The skeletal structures and soft tissues are negative for acute findings. IMPRESSION: NO ACUTE PROCESS.
--- NOTE | 2021-10-01 18:16 | PN ---
PROGRESS NOTE DATE OF SERVICE: 10/01/2021 This 41-year-old woman who was admitted with possible coagulase-negative Staph sepsis is being closely monitored at this time. The final cultures are negative at this time. The patient had Staph epi and coagulase-negative Staphylococcus grown from the two cultures from the blood. The final antibiotics and culture determination are being made by Dr. Llanes at this time. No chest pain. No palpitations. No fever. The patient is able to keep food down at this time. PHYSICAL EXAMINATION: Alert and oriented x3. Pulse 82, blood pressure 146/87, respiration 20, temperature 98.9, pulse ox 82% on room air. HEENT: Conjunctivae normal. NECK: No jugular venous distention. CARDIOVASCULAR: S1, S2 muffled. RESPIRATION: Breath sounds diminished at the bases. A few scattered rhonchi and crackles. ABDOMEN: Soft, nontender. LEGS: No edema. No swelling. NERVOUS SYSTEM: No focal deficit. LABS: Glucose ntd. CBC noted. ASSESSMENT: 1. Acute bacteremia with possible coagulase-negative Staph and Staph epidermidis, possibly from MediPort. 2. Status post right chest MediPort. 3. History of cerebrovascular accident, transient ischemic attack. 4. Mild hypoxia. 5. Diabetes mellitus, type 2. 6. Mitochondrial myopathy and myotonic dystrophy. 7. Dysautonomia history. 8. Idiopathic intracranial hypertension. 9. Emily's disease. 10.Lymphedema of the left arm. 11.History of pituitary microadenoma. 12.History of gastroparesis. 13.History of migraine headaches. 14.History of pernicious anemia. 15.History of polycystic ovarian disease. 16.Bilateral peripheral neuropathy. 17.Recurrent urinary tract infections. 18.Neurogenic bladder history. 19.History of incontinence. 20.History of deep vein thrombosis. RECOMMENDATIONS AND DISCUSSION: I recommend to continue current medications, continue with symptomatic treatment. Finalize ID as mentioned earlier. Two organisms are grown from the culture and the patient is on IV vancomycin at this time. Closely follow with Infectious Disease. Patient is also slightly hypoxic at this time. I would recommend a portable chest x-ray and continue with the rest of the medication. Continue the bronchodilators as well. Guarded prognosis. Further recommendations to follow. MMODL / IJN: [id number] / [facility]
[2021-10-01 19:33] LABS: Basophils # (A) 0.1 k/uL (0-0.2); Basophils % (A) 1 %; Eosinophils # (A) 0.4 k/uL (0-0.7); Eosinophils % (A) 6 %; HCT 37.1 % (34.0-46.0); HGB 12.1 gm/dL (11.4-16.0); Lymphocytes % (A) 15 %; MCH 29.6 pg (25.0-35.0); MCHC 32.7 g/dL (31.0-37.0); MCV 90.5 fL (80.0-100.0); Mean Platelet Volume 6.9; Monocytes # (A) 0.4 k/uL (0-1.0); Monocytes % (A) 6 %; Neutrophils # (A) 4.5 k/uL (1.3-7.7); Neutrophils % (A) 70 %; Platelet Count 367 k/uL (150-450); RDW 14.4 % (11.5-15.5); WBC 6.4 k/uL (3.8-10.6)
[2021-10-01 19:43] LABS: ALT 26 U/L (4-34); AST 34 U/L (14-36); African American GFR (CKD) >90 (>60 ml/min/1.73 sqM); Albumin 3.9 g/dL (3.5-5.0); Alkaline Phosphatase 62 U/L (38-126); Anion Gap 9 mmol/L; Blood Urea Nitrogen 9 mg/dL (7-17); Calcium 9.6 mg/dL (8.4-10.2); Carbon Dioxide 22 mmol/L (22-30); Chloride 106 mmol/L (98-107); Glucose 152 mg/dL (74-99); Non-African American GFR(CKD) 79 (>60 ml/min/1.73 sqM); Potassium 4.1 mmol/L (3.5-5.1); Sodium 137 mmol/L (137-145); Total Bilirubin 0.2 mg/dL (0.2-1.3); Total Protein 6.4 g/dL (6.3-8.2)
[2021-10-01 20:09] VITALS: BP 143/83; PULSE 85; RESP 16; TEMP 99.2
--- NOTE | 2021-10-01 21:47 | PN ---
PROGRESS NOTE DATE OF SERVICE: 10/01/2021 REASON FOR FOLLOWUP: Staph epidermidis bacteremia with Mediport infection. INTERVAL HISTORY: The patient is afebrile. The patient is feeling better, breathing comfortably. Overall pain and discomfort at the port site no chest pain, shortness of breath or cough. No abdominal pain or diarrhea. PHYSICAL EXAMINATION: Blood pressure 143/83 with a pulse of 85, temperature 99.2. She is 97% on room air. General description is a middle-aged female lying in bed in no distress. Respiratory system: Unlabored breathing, decreased intensity of breath sounds. No wheeze. Heart S1, S2. Regular rate and rhythm. Abdomen soft, no tenderness. LABS: Hemoglobin is 12.1, white count 6.4, creatinine 0.91. Blood cultures from 09/29 are negative so far. DIAGNOSTIC IMPRESSION AND PLAN: Patient with Staphylococcus epidermidis bacteremia, consideration for possible port infection. The patient has cleared her bacteremia. Plan is for vancomycin, Pharmacy to dose, for 2 weeks and repeat blood cultures a week after that. If those are negative, no further workup will be needed. All her questions and concerns were answered. MMODL / IJN: [id number] /
[2021-10-02] MEDS ORDERED: VANCOMYCIN TROUGH DUE 1 EACH MISC MISCELLANE ONE (08:00)
--- NOTE | 2021-10-06 09:04 | P.DS ---
Providers Date of admission: 09/27/21 10:16 Expected date of discharge: 10/01/21 Attending physician: Alyssa Quinonez Consults: 09/27/21 09:55 Consult Physician Urgent Consulting Provider: Juliane Llanes Consult Reason/Comments: Positive blood culture Do you want consulting provider notified?: Yes Primary care physician: Julissa Montano Hospital Course: Final Diagnosis Acute bacteremia with possible coagulase-negative staph, and staph epidermidis, possibly from MediPort Status post right chest MediPort History of CVA, TIA Mild hypoxia Diabetes mellitus type 2 Mitochondrial myopathy and myotonic dystrophy Dysautonomia history Idiopathic intracranial hypertension Emily's disease Lymphedema of the left arm history pituitary microadenoma History of gastroparesis History of migraine headaches History of polycystic ovarian disease History of pernicious anemia Bilateral peripheral neuropathy Recent recurrent urinary tract infections Neurogenic bladder history History of incontinence History of deep vein thrombosis Discharge disposition Patient is being discharged in a stable condition with guarded prognosis to home. Patient will continue with Aj infusion for IV antibiotic therapy in the form of Vanco for the next 2 weeks and close outpatient follow-up with Dr. Llanes for repeat blood cultures. Patient will follow-up with Dr. Montano in the outpatient setting upon discharge. Total time taken is greater than 35 minutes. Hospital course This is a 41-year-old female who was recently admitted with positive blood cultures that were possible coagulase-negative staph along with sepsis and was being closely monitored. Infectious disease following closely and patient maintained on IV and biotics and awaiting for bacteremia clearance for discharge. Patient has MediPort and will be continuing to receive IV vancomycin per infectious disease recommendations for 2 additional weeks with close outpatient follow-up with Dr. Llanes. Arrangements are being made for outpatient home care along with continued IV antibiotic therapy. Currently no reports of chest pain, shortness of breath, or palpitations. Patient is afebrile. No reports of nausea or vomiting and patient is tolerating diet. Patient will be discharged home today. On exam vital signs are stable. Cardio S1, S2 are muffled. Respiratory system shows diminished breath sounds at the bases with no wheezing or rhonchi noted. Abdomen is soft and obese, and nontender. Nervous system shows no focal deficits. Please refer to medication reconciliation sheet for a list of medications. Patient Condition at Discharge: Fair Plan - Discharge Summary Discharge Rx Participant: No New Discharge Prescriptions: New Ibuprofen [Motrin] 600 mg PO Q6HR PRN #30 tab PRN Reason: Pain Vancomycin 2,000 mg IVPB Q12H 14 Days #28 each Continue Levothyroxine Sodium [Synthroid] 100 mcg PO DAILY modafiniL [Provigil] 200 mg PO DAILY tab Methenamine Hippurate 1 gm PO BID Mirabegron [Myrbetriq] 25 mg PO DAILY Insulin Aspart [NovoLOG Flexpen] See Protocol SQ AC-TID Fenofibrate [Lofibra] 160 mg PO HS tab Gabapentin [Neurontin] 400 mg PO TID cap Metoprolol Succinate (ER) [Toprol XL] 50 mg PO DAILY tab.er.24h Trimethoprim [Trimpex] 100 mg PO HS tab Rivaroxaban [Xarelto] 20 mg PO HS tab Acetaminophen Tab [Tylenol] 650 mg PO Q6H PRN PRN Reason: Fever And/ Or Pain Promethazine [Phenergan] 25 mg PO Q6H PRN PRN Reason: Nausea [place] Carbonate 900 mg PO HS Levothyroxine Sodium [Synthroid] 125 mcg PO MOTUWETH Albuterol Inhaler [Ventolin Hfa Inhaler] 2 puff INHALATION RT-Q4H PRN PRN Reason: Shortness Of Breath Clonidine Er 0.1mg 0.1 mg PO BID Dexlansoprazole [Dexilant] 60 mg PO DAILY Galcanezumab-Gnlm [Emgality Pen] 120 mg SQ Q30D Insulin Glargine,Hum.rec.anlog [Lantus Solostar Pen] 70 unit SQ DAILY Meloxicam [Mobic] 15 mg PO DAILY Rizatriptan Benzoate [Rizatriptan] 5 mg PO BID PRN PRN Reason: Migraine Headache Sodium Chloride 0.9% Iv 1,000 ml IV DAILY Brexpiprazole [Rexulti] 0.5 mg PO HS Baclofen [Lioresal] 20 mg PO Q12HR PRN PRN Reason: Pain hydrOXYzine pamoate [Vistaril] 100 mg PO BID PRN PRN Reason: Anxiety polyethylene glycoL 3350 [Miralax] 17 gm PO DAILY Loratadine 10 mg PO DAILY diphenhydrAMINE HCL [Benadryl] 25 capsule PO HS Butalb/APAP/Caff 50-325-40Mg [Fioricet 50-325-40] 1 tab PO Q8HR PRN PRN Reason: headache Ezetimibe [Zetia] 10 mg PO DAILY Cyanocobalamin (Vitamin B-12) [Vitamin B-12] 1,000 mcg PO DAILY busPIRone HCL 30 mg PO BID Dextroamphetamine/Amphetamine [Adderall] 10 mg PO BID HYDROcodone/APAP 5-325MG [[place] 5-325] 1 tab PO Q6HR PRN 3 Days #12 tab PRN Reason: Pain Fluticasone/Vilanterol [Breo Ellipta 100-25 Mcg Inhaler] 1 puff INHALATION RT-DAILY Ondansetron Odt [Zofran ODT] 8 mg PO Q12HR PRN PRN Reason: Nausea Fluticasone/Vilanterol [Breo Ellipta 200-25 Mcg Inhaler] 1 inhalation INHALATION DAILY Discharge Medication List Levothyroxine Sodium [Synthroid] 100 mcg PO DAILY 01/16/19 [History] modafiniL [Provigil] 200 mg PO DAILY tab 03/07/19 [Rx] Methenamine Hippurate 1 gm PO BID 07/12/19 [History] Insulin Aspart [NovoLOG Flexpen] See Protocol SQ AC-TID 10/08/19 [History] Mirabegron [Myrbetriq] 25 mg PO DAILY 10/08/19 [History] Fenofibrate [Lofibra] 160 mg PO HS tab 10/17/19 [Rx] Gabapentin [Neurontin] 400 mg PO TID cap 10/17/19 [Rx] Metoprolol Succinate (ER) [Toprol XL] 50 mg PO DAILY tab.er.24h 10/17/19 [Rx] Rivaroxaban [Xarelto] 20 mg PO HS tab 10/17/19 [Rx] Trimethoprim [Trimpex] 100 mg PO HS tab 10/17/19 [Rx] Acetaminophen Tab [Tylenol] 650 mg PO Q6H PRN 11/29/19 [History] [place] Carbonate 900 mg PO HS 11/29/19 [History] Promethazine [Phenergan] 25 mg PO Q6H PRN 11/30/19 [History] Levothyroxine Sodium [Synthroid] 125 mcg PO MOTUWETH 12/28/19 [History] Albuterol Inhaler [Ventolin Hfa Inhaler] 2 puff INHALATION RT-Q4H PRN 09/19/20 [History] Clonidine Er 0.1mg 0.1 mg PO BID 09/19/20 [History] Dexlansoprazole [Dexilant] 60 mg PO DAILY 09/19/20 [History] Galcanezumab-Gnlm [Emgality Pen] 120 mg SQ Q30D 09/19/20 [History] Insulin Glargine,Hum.rec.anlog [Lantus Solostar Pen] 70 unit SQ DAILY 09/19/20 [History] Meloxicam [Mobic] 15 mg PO DAILY 09/19/20 [History] Rizatriptan Benzoate [Rizatriptan] 5 mg PO BID PRN 09/19/20 [History] Sodium Chloride 0.9% Iv 1,000 ml IV DAILY 09/19/20 [History] Brexpiprazole [Rexulti] 0.5 mg PO HS 06/01/21 [History] Cyanocobalamin (Vitamin B-12) [Vitamin B-12] 1,000 mcg PO DAILY 06/01/21 [History] Dextroamphetamine/Amphetamine [Adderall] 10 mg PO BID 06/01/21 [History] Ezetimibe [Zetia] 10 mg PO DAILY 06/01/21 [History] busPIRone HCL 30 mg PO BID 06/01/21 [History] Baclofen [Lioresal] 20 mg PO Q12HR PRN 06/02/21 [History] hydrOXYzine pamoate [Vistaril] 100 mg PO BID PRN 06/02/21 [History] HYDROcodone/APAP 5-325MG [[place] 5-325] 1 tab PO Q6HR PRN 3 Days #12 tab 06/04/21 [Rx] Fluticasone/Vilanterol [Breo Ellipta 100-25 Mcg Inhaler] 1 puff INHALATION RT- DAILY 09/27/21 [History] Fluticasone/Vilanterol [Breo Ellipta 200-25 Mcg Inhaler] 1 inhalation INHALATION DAILY 09/27/21 [History] Loratadine 10 mg PO DAILY 09/27/21 [History] Ondansetron Odt [Zofran ODT] 8 mg PO Q12HR PRN 09/27/21 [History] diphenhydrAMINE HCL [Benadryl] 25 capsule PO HS 09/27/21 [History] polyethylene glycoL 3350 [Miralax] 17 gm PO DAILY 09/27/21 [History] Butalb/APAP/Caff 50-325-40Mg [Fioricet 50-325-40] 1 tab PO Q8HR PRN 10/01/21 [History] Ibuprofen [Motrin] 600 mg PO Q6HR PRN #30 tab 10/01/21 [Rx] Vancomycin 2,000 mg IVPB Q12H 14 Days #28 each 10/01/21 [Rx] Follow up Appointment(s)/Referral(s): Julissa Montano III, MD [Primary Care Provider] - 1-2 days (Please call office to make appointment) [facility] [NON-STAFF] - [facility], [REFERRING] - Juliane Llanes MD [STAFF PHYSICIAN] - 10/06/21 2:00 pm [facility] [NON-STAFF] - Patient Instructions/Handouts: Bacteremia (ED) Activity/Diet/Wound Care/Special Instructions: Discharge pending clearance from Dr. Llanes Activity Limited until follow-up follow up with primary care provider upon discharge Continue with home care and infusion for IV antibiotic therapy and vancomycin with pharmacy to dose She will need close outpatient follow-up of IV antibiotics along with weekly blood draws for vancomycin trough, CBC, BMP Close outpatient follow-up with Dr. Llanes in one week Continue to monitor Accu-Cheks before meals and at bedtime and continue with sliding scale Continue consistent carb diet Please get Adderall from inpatient pharm and give to patient prior to going home. Discharge Disposition: HOME WITH HOME HEALTH SERVICES
== END 2021-10-01 21:36 | disposition home health service (06) | DRG 315 ==
LOC: EC 07:29 → 5NMEDONC 10:16 → 6PED 16:27
PROVIDERS: ADMIT Internal Medicine; ATTEND Internal Medicine
DX: T82.7XXA Infection and inflammatory reaction due to other cardiac and vascular devices, implants and grafts, initial encounter (principal); R78.81 Bacteremia; Z68.41 Body mass index [BMI] 40.0-44.9, adult; E88.40 Mitochondrial metabolism disorder, unspecified; E06.3 Autoimmune thyroiditis; E11.43 Type 2 diabetes mellitus with diabetic autonomic (poly)neuropathy; N31.9 Neuromuscular dysfunction of bladder, unspecified; F31.9 Bipolar disorder, unspecified; G90.1 Familial dysautonomia [Riley-Day]; B95.7 Other staphylococcus as the cause of diseases classified elsewhere; Y71.2 Prosthetic and other implants, materials and accessory cardiovascular devices associated with adverse incidents; K31.84 Gastroparesis; E66.9 Obesity, unspecified; G43.909 Migraine, unspecified, not intractable, without status migrainosus; G71.11 Myotonic muscular dystrophy; G93.2 Benign intracranial hypertension; I89.0 Lymphedema, not elsewhere classified; N39.3 Stress incontinence (female) (male); Z20.822 Contact with and (suspected) exposure to COVID-19; E28.2 Polycystic ovarian syndrome; R09.02 Hypoxemia; Z79.890 Hormone replacement therapy; Z79.899 Other long term (current) drug therapy; Z79.01 Long term (current) use of anticoagulants; Z86.14 Personal history of Methicillin resistant Staphylococcus aureus infection; Z90.49 Acquired absence of other specified parts of digestive tract; Z79.1 Long term (current) use of non-steroidal anti-inflammatories (NSAID); Z79.4 Long term (current) use of insulin; Z79.51 Long term (current) use of inhaled steroids; Z82.49 Family history of ischemic heart disease and other diseases of the circulatory system; Z83.3 Family history of diabetes mellitus; Z86.718 Personal history of other venous thrombosis and embolism; Z86.73 Personal history of transient ischemic attack (TIA), and cerebral infarction without residual deficits; Z87.440 Personal history of urinary (tract) infections
CPT/HCPCS: 36415; 71045; 80048; 80053; 80202; 81003; 82565; 83036; 85025; 87040; 87077; 87186; 87635; 94640; 99284

== ENCOUNTER 2021-10-23 13:51 | Inpatient (IN) | payer MEDICARE, OTHER ==
[2021-10-23] MEDS ORDERED: ACETAMINOPHEN TAB 325 MG TAB PO STA ×2 (18:38→20:43)
--- NOTE | 2021-10-23 19:34 | ED ---
General Adult HPI - General Chief complaint: Fever Stated complaint: Metaport Probelms Time Seen by Provider: 10/23/21 18:37 Source: patient Mode of arrival: wheelchair Limitations: no limitations, physical limitation - History of Present Illness Initial comments: 41 year-old male patient presents by the request of her physician for positive blood cultures. States she has been treated over the last couple of months for port site infection. She was receiving IV vancomycin. States that she had a re- culture a week ago to see if the antibiotics were effective, the cultures were again positive for staph. She states that Dr. Llanes wanted her admitted for IV antibiotics and port removal. She has been having fevers as high as 102F. Denies any nausea or vomiting. States she has had some mild left upper quadrant tenderness. Denies diarrhea or constipation. States she recieved IV fluids daily through her port. - Related Data Home Medications Medication Instructions Recorded Confirmed Levothyroxine Sodium [Synthroid] 100 mcg PO DAILY 01/16/19 09/27/21 Methenamine Hippurate 1 gm PO BID 07/12/19 09/27/21 Insulin Aspart [NovoLOG Flexpen] See Protocol SQ AC-TID 10/08/19 09/27/21 Mirabegron [Myrbetriq] 25 mg PO DAILY 10/08/19 09/27/21 Acetaminophen Tab [Tylenol] 650 mg PO Q6H PRN 11/29/19 09/27/21 [place] Carbonate 900 mg PO HS 11/29/19 09/27/21 Promethazine [Phenergan] 25 mg PO Q6H PRN 11/30/19 09/27/21 Levothyroxine Sodium [Synthroid] 125 mcg PO MOTUWETH 12/28/19 09/27/21 Albuterol Inhaler [Ventolin Hfa 2 puff INHALATION RT-Q4H PRN 09/19/20 09/27/21 Inhaler] Clonidine Er 0.1mg 0.1 mg PO BID 09/19/20 09/27/21 Dexlansoprazole [Dexilant] 60 mg PO DAILY 09/19/20 09/27/21 Galcanezumab-Gnlm [Emgality Pen] 120 mg SQ Q30D 09/19/20 09/27/21 Insulin Glargine,Hum.rec.anlog 70 unit SQ DAILY 09/19/20 09/27/21 [Lantus Solostar Pen] Meloxicam [Mobic] 15 mg PO DAILY 09/19/20 09/27/21 Rizatriptan Benzoate [Rizatriptan] 5 mg PO BID PRN 09/19/20 09/27/21 Sodium Chloride 0.9% Iv 1,000 ml IV DAILY 09/19/20 09/27/21 Brexpiprazole [Rexulti] 0.5 mg PO HS 06/01/21 09/27/21 Cyanocobalamin (Vitamin B-12) 1,000 mcg PO DAILY 06/01/21 09/27/21 [Vitamin B-12] Dextroamphetamine/Amphetamine 10 mg PO BID 06/01/21 09/27/21 [Adderall] Ezetimibe [Zetia] 10 mg PO DAILY 06/01/21 09/27/21 busPIRone HCL 30 mg PO BID 06/01/21 09/27/21 Baclofen [Lioresal] 20 mg PO Q12HR PRN 06/02/21 09/27/21 hydrOXYzine pamoate [Vistaril] 100 mg PO BID PRN 06/02/21 09/27/21 Fluticasone/Vilanterol [Breo 1 puff INHALATION RT-DAILY 09/27/21 09/27/21 Ellipta 100-25 Mcg Inhaler] Fluticasone/Vilanterol [Breo 1 inhalation INHALATION DAILY 09/27/21 09/27/21 Ellipta 200-25 Mcg Inhaler] Loratadine 10 mg PO DAILY 09/27/21 09/27/21 Ondansetron Odt [Zofran ODT] 8 mg PO Q12HR PRN 09/27/21 09/27/21 diphenhydrAMINE HCL [Benadryl] 25 capsule PO HS 09/27/21 09/27/21 polyethylene glycoL 3350 [Miralax] 17 gm PO DAILY 09/27/21 09/27/21 Butalb/APAP/Caff 50-325-40Mg 1 tab PO Q8HR PRN 10/01/21 10/01/21 [Fioricet 50-325-40] Previous Rx's Medication Instructions Recorded modafiniL [Provigil] 200 mg PO DAILY tab 03/07/19 Fenofibrate [Lofibra] 160 mg PO HS tab 10/17/19 Gabapentin [Neurontin] 400 mg PO TID cap 10/17/19 Metoprolol Succinate (ER) [Toprol 50 mg PO DAILY tab.er.24h 10/17/19 XL] Rivaroxaban [Xarelto] 20 mg PO HS tab 10/17/19 Trimethoprim [Trimpex] 100 mg PO HS tab 10/17/19 HYDROcodone/APAP 5-325MG [[place] 1 tab PO Q6HR PRN 3 Days #12 tab 06/04/21 5-325] Ibuprofen [Motrin] 600 mg PO Q6HR PRN #30 tab 10/01/21 Vancomycin 2,000 mg IVPB Q12H 14 Days #28 each 10/01/21 Allergies Allergy/AdvReac Type Severity Reaction Status Date / Time peanut oil Allergy Severe Nausea & Verified 09/27/21 10:54 Vomiting,itching barium sulfate Allergy Anaphylaxis Verified 09/27/21 10:54 doxepin [Doxepin] Allergy Anaphylaxis Verified 09/27/21 10:54 ephedrine Allergy Chest Verified 09/27/21 10:54 Pain/tachycardia ertapenem [From Invanz] Allergy Rash/Hives Verified 09/27/21 10:54 peanut Allergy Nausea & Verified 09/27/21 10:54 Vomiting/itching pseudoephedrine Allergy Chest Pain Verified 09/27/21 10:54 sumatriptan [From Imitrex] Allergy Hallucinati Verified 09/27/21 18:07 ons doxycycline AdvReac Nausea & Verified 09/27/21 10:54 Vomiting & Diarrhea pseudoephedrine HCl AdvReac chest Verified 09/27/21 10:54 [From Sudafed] pain/tachycardia sulfamethoxazole AdvReac Nausea & Verified 09/27/21 10:54 [From Bactrim] Vomiting Review of Systems ROS Statement: Those systems with pertinent positive or pertinent negative responses have been documented in the HPI. ROS Other: All systems not noted in ROS Statement are negative. Past Medical History Past Medical History: CVA/TIA, Diabetes Mellitus, Deep Vein Thrombosis (DVT), Neurologic Disorder, Syncope, Thyroid Disorder Additional Past Medical History / Comment(s): port a cath rt chest , STROKE LIKE EPISODE D/T MITOCHRONDIAL DISEASE HAD WORK UP DONE AT [facility]. Dysautonomia, idiopathic intracranial HTN, lupus/ per pt last LUPUS ANTICOAGULANTS antiphosolipid test 06/10 neg., ana maria's disease, lymphedema Lt arm d/t DVTs,avoid use of lt arm for b/p,iv,blood draws, v-tach, pituitary microadenoma. patent foramen ovale, narcolepsy, gastropareis, HX orthostatic hypotension/syncope, migraines with hemiplegia, pernicious anemia, polycystic ovarian syndrome, neuropathy bilateral legs/feet - mild, uti's. neurogenic bladder, stress incontinence, uses wheelchair, able to transfer and walk few steps History of Any Multi-Drug Resistant Organisms: ESBL, MRSA Date of last positivie culture/infection: 03/09/17 MRSA/ 05/17/18 ESBL MDRO Source:: MRSA LEFT ARM,/ESBL URINE ECOLI Past Surgical History: Cholecystectomy, Uterine Ablation Additional Past Surgical History / Comment(s): colonscopy/egd, angie, PORT-A -CATH INSERTION, Past Anesthesia/Blood Transfusion Reactions: Previous Problems w/ Anesthesia Additional Past Anesthesia/Blood Transfusion Reaction / Comment(s): patient states "It takes a lot of anesthesia for my body to react". Pt has received blood in past without reaction. pt has met with anesthesia-will bring in a summary page for anesthesia r/t mitochondrial disease Past Psychological History: Bipolar, Depression Smoking Status: Never smoker Past Alcohol Use History: None Reported Past Drug Use History: None Reported - Past Family History Brother(s) Family Medical History: Diabetes Mellitus, Hyperlipidemia, Hypertension Additional Family Medical History / Comment(s): Patient states she has 1 brother with no major medical problems. Father Family Medical History: Diabetes Mellitus, Hyperlipidemia, Hypertension Additional Family Medical History / Comment(s): DAD IS 70 YEARS OLD. Patient states she does not have any contact with her father and does not know his medical history. Mother Family Medical History: CVA/TIA, Deep Vein Thrombosis (DVT) Additional Family Medical History / Comment(s): antiphospholipid antibody syn drome lupus dementia General Exam Limitations: no limitations, physical limitation General appearance: alert, in no apparent distress, other (This is a well- developed, well-nourished adult female in no acute distress.) ENT exam: Present: normal exam, normal oropharynx, mucous membranes moist Respiratory exam: Present: normal lung sounds bilaterally. Absent: respiratory distress, wheezes, rales, rhonchi, stridor Cardiovascular Exam: Present: regular rate, normal rhythm, normal heart sounds. Absent: systolic murmur, diastolic murmur, rubs, gallop, clicks GI/Abdominal exam: Present: soft, normal bowel sounds. Absent: distended, tenderness, guarding, rebound, rigid Neurological exam: Present: alert, oriented X3, CN II-XII intact Psychiatric exam: Present: normal affect, normal mood Skin exam: Present: warm, dry, intact, normal color. Absent: rash Course Vital Signs 10/23/21 15:18 Temperature 100.1 F H Pulse Rate 104 H Respiratory 20 Rate Blood Pressure 175/110 O2 Sat by Pulse 98 Oximetry Procedures - EJ/Peripheral Line No standard instances Consent Obtained: verbal consent Indications: other (Difficult IV start) Size: 20 Dressing Placed: Tegaderm, tape, other (mastasol) Patient Tolerated Procedure: well, no complications Additional Comments: 3 attempts at ultrasound guided IV in the right arm. Medical Decision Making - Medical Decision Making 41 year-old female sent in for positive blood cultures and port removal. Physical examination is unremarkable. Labs reviewed showed elevated white blood cell count at 13.7. She was febrile on arrival at 100.1. She is given tylenol. [place] for pain, baclofen for spasms. She will be admitted with IV antibiotics. Consult to Dr. Llanes. She is agreeable with this plan. Case discussed with my attending Dr. Grier. - Lab Data Result diagrams: 10/23/21 21:16 10/23/21 20:37 Lab Results 10/23/21 10/23/21 10/23/21 Range/Units 20:37 20:37 20:37 WBC (3.8-10.6) k/uL RBC (3.80-5.40) m/uL Hgb (11.4-16.0) gm/dL Hct (34.0-46.0) % MCV (80.0-100.0) fL MCH (25.0-35.0) pg MCHC (31.0-37.0) g/dL RDW (11.5-15.5) % Plt Count (150-450) k/uL MPV Neutrophils % % Lymphocytes % % Monocytes % % Eosinophils % % Basophils % % Neutrophils # (1.3-7.7) k/uL Lymphocytes # (1.0-4.8) k/uL Monocytes # (0-1.0) k/uL Eosinophils # (0-0.7) k/uL Basophils # (0-0.2) k/uL PT 10.2 (9.0-12.0) sec INR 0.9 (<1.2) APTT 23.5 (22.0-30.0) sec Sodium 137 (137-145) mmol/L Potassium 4.2 (3.5-5.1) mmol/L Chloride 104 (98-107) mmol/L Carbon Dioxide 22 (22-30) mmol/L Anion Gap 11 mmol/L BUN 11 (7-17) mg/dL Creatinine 0.66 (0.52-1.04) mg/dL Est GFR (CKD-EPI)AfAm >90 (>60 ml/min/1.73 sqM) Est GFR (CKD-EPI)NonAf >90 (>60 ml/min/1.73 sqM) Glucose 87 (74-99) mg/dL Plasma Lactic Acid Joce (0.7-2.0) mmol/L Calcium 10.1 (8.4-10.2) mg/dL Total Bilirubin 0.3 (0.2-1.3) mg/dL AST 31 (14-36) U/L ALT 22 (4-34) U/L Alkaline Phosphatase 73 (38-126) U/L Total Protein 7.5 (6.3-8.2) g/dL Albumin 4.7 (3.5-5.0) g/dL Urine Color Yellow Urine Appearance Clear (Clear) Urine pH 6.5 (5.0-8.0) Ur Specific [place] 1.013 (1.001-1.035) Urine Protein Negative (Negative) Urine Glucose (UA) Negative (Negative) Urine Ketones Negative (Negative) Urine Blood Negative (Negative) Urine Nitrite Negative (Negative) Urine Bilirubin Negative (Negative) Urine Urobilinogen <2.0 (<2.0) mg/dL Ur Leukocyte Esterase Negative (Negative) Coronavirus (PCR) (Not Detectd) 10/23/21 10/23/21 10/23/21 Range/Units 20:37 20:37 21:16 WBC 13.1 H (3.8-10.6) k/uL RBC 4.30 (3.80-5.40) m/uL Hgb 12.5 (11.4-16.0) gm/dL Hct 37.0 (34.0-46.0) % MCV 86.1 (80.0-100.0) fL MCH 29.1 (25.0-35.0) pg MCHC 33.8 (31.0-37.0) g/dL RDW 13.7 (11.5-15.5) % Plt Count 477 H (150-450) k/uL MPV 7.0 Neutrophils % 73 % Lymphocytes % 17 % Monocytes % 6 % Eosinophils % 2 % Basophils % 1 % Neutrophils # 9.6 H (1.3-7.7) k/uL Lymphocytes # 2.2 (1.0-4.8) k/uL Monocytes # 0.7 (0-1.0) k/uL Eosinophils # 0.3 (0-0.7) k/uL Basophils # 0.1 (0-0.2) k/uL PT (9.0-12.0) sec INR (<1.2) APTT (22.0-30.0) sec Sodium (137-145) mmol/L Potassium (3.5-5.1) mmol/L Chloride (98-107) mmol/L Carbon Dioxide (22-30) mmol/L Anion Gap mmol/L BUN (7-17) mg/dL Creatinine (0.52-1.04) mg/dL Est GFR (CKD-EPI)AfAm (>60 ml/min/1.73 sqM) Est GFR (CKD-EPI)NonAf (>60 ml/min/1.73 sqM) Glucose (74-99) mg/dL Plasma Lactic Acid Joce 1.4 (0.7-2.0) mmol/L Calcium (8.4-10.2) mg/dL Total Bilirubin (0.2-1.3) mg/dL AST (14-36) U/L ALT (4-34) U/L Alkaline Phosphatase (38-126) U/L Total Protein (6.3-8.2) g/dL Albumin (3.5-5.0) g/dL Urine Color Urine Appearance (Clear) Urine pH (5.0-8.0) Ur Specific [place] (1.001-1.035) Urine Protein (Negative) Urine Glucose (UA) (Negative) Urine Ketones (Negative) Urine Blood (Negative) Urine Nitrite (Negative) Urine Bilirubin (Negative) Urine Urobilinogen (<2.0) mg/dL Ur Leukocyte Esterase (Negative) Coronavirus (PCR) Not Detected (Not Detectd) Disposition Clinical Impression: Bacteremia, Port or reservoir infection Disposition: ADMITTED IP TO THIS [facility] Condition: Serious Decision to Admit Reason: Admit from EC Decision Date: 10/23/21 Decision Time: 21:27
[2021-10-23] MEDS ORDERED: HYDROcodone/APAP 5-325MG 1 EACH TAB PO STA (20:43)
[2021-10-23] MEDS ORDERED: BACLOFEN 10 MG TAB PO STA (20:44)
[2021-10-23] MEDS: SODIUM CHLORIDE 0.9% 1,000 ML IV SCH (20:46)
[2021-10-23] MEDS: SODIUM CHLORIDE 0.9% 500 ML 500 ML IV SCH ×2 (20:47→21:57)
[2021-10-23 21:03] LABS: ALT 22 U/L (4-34); AST 31 U/L (14-36); African American GFR (CKD) >90 (>60 ml/min/1.73 sqM); Albumin 4.7 g/dL (3.5-5.0); Alkaline Phosphatase 73 U/L (38-126); Anion Gap 11 mmol/L; Blood Urea Nitrogen 11 mg/dL (7-17); Calcium 10.1 mg/dL (8.4-10.2); Carbon Dioxide 22 mmol/L (22-30); Chloride 104 mmol/L (98-107); Glucose 87 mg/dL (74-99); Non-African American GFR(CKD) >90 (>60 ml/min/1.73 sqM); Potassium 4.2 mmol/L (3.5-5.1); Sodium 137 mmol/L (137-145); Total Bilirubin 0.3 mg/dL (0.2-1.3); Total Protein 7.5 g/dL (6.3-8.2)
[2021-10-23 21:12] LABS: INR 0.9 (<1.2); Partial Thromboplastin Time 23.5 sec (22.0-30.0); Prothrombin Time 10.2 sec (9.0-12.0)
[2021-10-23 21:13] LABS: Appearance,Urine Clear (Clear); Bilirubin,Urine Negative (Negative); Blood,Urine Negative (Negative); Color,Urine Yellow; Glucose,Urine (UA) Negative (Negative); Ketones,Urine Negative (Negative); Leukocyte Esterase,Urine Negative (Negative); Nitrite,Urine Negative (Negative); PH, Urine 6.5 (5.0-8.0); Protein,Urine Negative (Negative); Specific Gravity,Urine 1.013 (1.001-1.035); Urobilinogen,Urine <2.0 mg/dL (<2.0)
[2021-10-23 21:20] LABS: Basophils # (A) 0.1 k/uL (0-0.2); Basophils % (A) 1 %; Eosinophils # (A) 0.3 k/uL (0-0.7); Eosinophils % (A) 2 %; HGB 12.5 gm/dL (11.4-16.0); Lymphocytes # (A) 2.2 k/uL (1.0-4.8); Lymphocytes % (A) 17 %; MCH 29.1 pg (25.0-35.0); MCHC 33.8 g/dL (31.0-37.0); MCV 86.1 fL (80.0-100.0); Monocytes # (A) 0.7 k/uL (0-1.0); Monocytes % (A) 6 %; Neutrophils # (A) 9.6 k/uL (1.3-7.7); Neutrophils % (A) 73 %; Platelet Count 477 k/uL (150-450); RDW 13.7 % (11.5-15.5); WBC 13.1 k/uL (3.8-10.6)
[2021-10-23] MEDS ORDERED: cefTRIAXone IN SWFI 1,000 MG/10 ML SYRINGE IVP STA (21:23)
[2021-10-23] MEDS ORDERED: VANCOMYCIN IV PER PHARMACY 1 EACH MISC MISCELLANE PRN (21:23)
[2021-10-23] MEDS ORDERED: ACETAMINOPHEN TAB 325 MG TAB PO PRN (21:24)
[2021-10-23] MEDS ORDERED: NALOXONE 0.4 MG/ML 1 ML VIAL IV PRN (21:24)
[2021-10-23] MEDS ORDERED: VANCOMYCIN 1,750 MG in SODIUM CHLORIDE 0.9% 500 ML 500 ML IVPB ONE (21:30)
[2021-10-24] MEDS: SODIUM CHLORIDE 0.9% 1,000 ML IV SCH ×3 (04:00→16:10)
[2021-10-24] MEDS ORDERED: SUMAtriptan succinate 50 MG TAB PO PRN (04:40)
[2021-10-24] MEDS: VANCOMYCIN 2,000 MG in SODIUM CHLORIDE 0.9% 500 ML 500 ML IVPB SCH ×2 (09:48→21:29)
[2021-10-24] MEDS ORDERED: VANCOMYCIN 1,750 MG in SODIUM CHLORIDE 0.9% 500 ML 500 ML IVPB SCH (10:00)
[2021-10-24] MEDS ORDERED: IBUPROFEN 600 MG TAB PO PRN (14:40)
[2021-10-24] MEDS ORDERED: ACETAMINOPHEN TAB 325 MG TAB PO PRN (14:40)
[2021-10-24] MEDS ORDERED: BACLOFEN 10 MG TAB PO PRN (14:40)
[2021-10-24] MEDS ORDERED: ALBUTEROL NEBULIZED 2.5 MG/3 ML INHALATION PRN (14:40)
[2021-10-24] MEDS: BUTALB/APAP/CAFF 50-325-40MG TAB PO PRN (15:26)
[2021-10-24] MEDS: GABAPENTIN 400 MG CAP PO SCH ×2 (16:10→22:44)
[2021-10-24 17:53] LABS: Glucose,Whole Blood 108 mg/dL (75-99)
[2021-10-24] MEDS: INSULIN ASPART (NovoLOG) 100 UNIT/ML VIAL SQ SCH ×2 (18:04→21:32)
[2021-10-24] MEDS: PROMETHAZINE 25 MG TAB PO PRN (18:06)
[2021-10-24 20:43] LABS: Glucose,Whole Blood 157 mg/dL (75-99)
--- NOTE | 2021-10-24 21:28 | P.HPIM ---
History of Present Illness H&P Date: 10/24/21 Chief Complaint: Positive blood cultures Ms. Lam is a 41-year-old female with a past medical history of CVA/TIA, diabetes mellitus, DVT, dysautonomia, gastroparesis, orthostatic hypotension/syncope, pernicious anemia, obesity already, neuropathy of bilateral lower extremities, mitochondrial disorder causing myotonic dystrophy Presents to ER by the request of her physician due to positive blood cultures. Patient was recently discharged from hospital on 10/01/2021 with vancomycin for 2 weeks due to staph epidermidis bacteremia which was suspected from the MediPort which she used for IV hydration. Mediport was removed at the time and patient was discharged home with 2 weeks of IV antibiotics. Patient had recultured a week ago to see if the antibiotics were effective. The cultures were again positive for staph. Dr. Otoole wanted her admitted for IV antibiotics and port removal. Patient states that she has been fevers up to 102 F at home. Denies any nausea or vomiting. Patient also complaining of some tenderness over the left upper chest at the port site. Otherwise denied any chest pain. No cough or sputum production. No nausea vomiting or abdominal pain or diarrhea. On admission blood pressure 141/96 pulse 83 respiration 18 pulse ox 97% on room air and T-max is 99.8. Laboratory data showed WBC 13.1 hemoglobin 12.5 and platelets 477 neutrophils 9.6 BUN 11 creatinine 0.66 liver enzymes are not elevated UA negative for infection Coronavirus PCR not detected. Review of Systems Constitutional: Patient does complain of fever and chills at home. . No generalized weakness or weight loss. Abdomen: Patient denied nausea vomiting and diarrhea and abdominal pain. Cardiovascular: Patient denies any chest pain or short of breath no palpitations. Respiratory: patient denied any cough or sputum production. No shortness of breath Neurologic: Patient denied any numbness or tingling headache. Musculoskeletal: Patient denies any complaints of joint swelling or deformity. Skin: Negative Psychiatric: Negative Endocrine: No heat or cold intolerance. No recent weight gain. Genitourinary: No dysuria or hematuria. All other 14 point ROS negative except the above Past Medical History Past Medical History: CVA/TIA, Diabetes Mellitus, Deep Vein Thrombosis (DVT), Neurologic Disorder, Syncope, Thyroid Disorder Additional Past Medical History / Comment(s): port a cath rt chest , STROKE LIKE EPISODE D/T MITOCHRONDIAL DISEASE HAD WORK UP DONE AT [facility]. Dysautonomia, idiopathic intracranial HTN, lupus/ per pt last LUPUS ANTICOAGULANTS antiphosolipid test 06/10 neg., emily's disease, lymphedema Lt arm d/t DVTs,avoid use of lt arm for b/p,iv,blood draws, v-tach, pituitary microadenoma. patent foramen ovale, narcolepsy, gastropareis, HX orthostatic h ypotension/syncope, migraines with hemiplegia, pernicious anemia, polycystic ovarian syndrome, neuropathy bilateral legs/feet - mild, uti's. neurogenic bladder, stress incontinence, uses wheelchair, able to transfer and walk few steps History of Any Multi-Drug Resistant Organisms: ESBL, MRSA Date of last positivie culture/infection: 03/09/17 MRSA/ 05/17/18 ESBL MDRO Source:: MRSA LEFT ARM,/ESBL URINE ECOLI Past Surgical History: Cholecystectomy, Uterine Ablation Additional Past Surgical History / Comment(s): colonscopy/egd, angie, PORT-A -CATH INSERTION, Past Anesthesia/Blood Transfusion Reactions: Previous Problems w/ Anesthesia Additional Past Anesthesia/Blood Transfusion Reaction / Comment(s): patient states "It takes a lot of anesthesia for my body to react". Pt has received blood in past without reaction. pt has met with anesthesia-will bring in a summary page for anesthesia r/t mitochondrial disease Past Psychological History: Bipolar, Depression Additional Psychological History / Comment(s): . Smoking Status: Never smoker Past Alcohol Use History: None Reported Additional Past Alcohol Use History / Comment(s): . Past Drug Use History: None Reported - Past Family History Brother(s) Family Medical History: Diabetes Mellitus, Hyperlipidemia, Hypertension Additional Family Medical History / Comment(s): Patient states she has 1 brother with no major medical problems. Father Family Medical History: Diabetes Mellitus, Hyperlipidemia, Hypertension Additional Family Medical History / Comment(s): DAD IS 70 YEARS OLD. Patient states she does not have any contact with her father and does not know his medical history. Mother Family Medical History: CVA/TIA, Diabetes Mellitus, Deep Vein Thrombosis (DVT) Additional Family Medical History / Comment(s): antiphospholipid antibody syndrome lupus dementia Medications and Allergies Home Medications Medication Instructions Recorded Confirmed Type Levothyroxine Sodium [Synthroid] 100 mcg PO DAILY 01/16/19 10/23/21 History modafiniL [Provigil] 200 mg PO DAILY tab 03/07/19 10/23/21 Rx Methenamine Hippurate 1 gm PO BID 07/12/19 10/23/21 History Insulin Aspart [NovoLOG Flexpen] See Protocol SQ AC-TID 10/08/19 10/23/21 History Mirabegron [Myrbetriq] 25 mg PO DAILY 10/08/19 10/23/21 History Fenofibrate [Lofibra] 160 mg PO HS tab 10/17/19 10/23/21 Rx Gabapentin [Neurontin] 400 mg PO TID cap 10/17/19 10/23/21 Rx Metoprolol Succinate (ER) [Toprol 50 mg PO DAILY tab.er.24h 10/17/19 10/23/21 Rx XL] Rivaroxaban [Xarelto] 20 mg PO HS tab 10/17/19 10/23/21 Rx Trimethoprim [Trimpex] 100 mg PO HS tab 10/17/19 10/23/21 Rx Acetaminophen Tab [Tylenol] 650 mg PO Q6H PRN 11/29/19 10/23/21 History [place] Carbonate 900 mg PO HS 11/29/19 10/23/21 History Promethazine [Phenergan] 25 mg PO Q6H PRN 11/30/19 10/23/21 History Levothyroxine Sodium [Synthroid] 125 mcg PO MOTUWETH 12/28/19 10/23/21 History Albuterol Inhaler [Ventolin Hfa 2 puff INHALATION RT-Q4H PRN 09/19/20 10/23/21 History Inhaler] Clonidine Er 0.1mg 0.1 mg PO BID 09/19/20 10/23/21 History Dexlansoprazole [Dexilant] 60 mg PO DAILY 09/19/20 10/23/21 History Galcanezumab-Gnlm [Emgality Pen] 120 mg SQ Q30D 09/19/20 10/23/21 History Insulin Glargine,Hum.rec.anlog 70 unit SQ DAILY 09/19/20 10/23/21 History [Lantus Solostar Pen] Meloxicam [Mobic] 15 mg PO DAILY 09/19/20 10/23/21 History Rizatriptan Benzoate [Rizatriptan] 5 mg PO BID PRN 09/19/20 10/23/21 History Sodium Chloride 0.9% Iv 1,000 ml IV DAILY 09/19/20 10/23/21 History Brexpiprazole [Rexulti] 0.5 mg PO HS 06/01/21 10/23/21 History Cyanocobalamin (Vitamin B-12) 1,000 mcg PO DAILY 06/01/21 10/23/21 History [Vitamin B-12] Dextroamphetamine/Amphetamine 10 mg PO BID 06/01/21 10/23/21 History [Adderall] Ezetimibe [Zetia] 10 mg PO DAILY 06/01/21 10/23/21 History busPIRone HCL 30 mg PO BID 06/01/21 10/23/21 History Baclofen [Lioresal] 20 mg PO Q12HR PRN 06/02/21 10/23/21 History hydrOXYzine pamoate [Vistaril] 100 mg PO BID PRN 06/02/21 10/23/21 History HYDROcodone/APAP 5-325MG [[place] 1 tab PO Q6HR PRN 3 Days #12 tab 06/04/21 10/23/21 Rx 5-325] Fluticasone/Vilanterol [Breo 1 puff INHALATION RT-DAILY 09/27/21 10/23/21 History Ellipta 100-25 Mcg Inhaler] Loratadine 10 mg PO DAILY 09/27/21 10/23/21 History Ondansetron Odt [Zofran ODT] 8 mg PO Q12HR PRN 09/27/21 10/23/21 History diphenhydrAMINE HCL [Benadryl] 25 capsule PO HS 09/27/21 10/23/21 History polyethylene glycoL 3350 [Miralax] 17 gm PO DAILY 09/27/21 10/23/21 History Butalb/APAP/Caff 50-325-40Mg 1 tab PO Q8HR PRN 10/01/21 10/23/21 History [Fioricet 50-325-40] Ibuprofen [Motrin] 600 mg PO Q6HR PRN #30 tab 10/01/21 10/23/21 Rx Allergies Allergy/AdvReac Type Severity Reaction Status Date / Time peanut oil Allergy Severe Nausea & Verified 10/23/21 22:03 Vomiting,itching barium sulfate Allergy Anaphylaxis Verified 10/23/21 22:03 doxepin [Doxepin] Allergy Anaphylaxis Verified 10/23/21 22:03 ephedrine Allergy Chest Verified 10/23/21 22:03 Pain/tachycardia ertapenem [From Invanz] Allergy Rash/Hives Verified 10/23/21 22:03 peanut Allergy Nausea & Verified 10/23/21 22:03 Vomiting/itching pseudoephedrine Allergy Chest Pain Verified 10/23/21 22:03 sumatriptan [From Imitrex] Allergy Hallucinati Verified 10/23/21 22:03 ons doxycycline AdvReac Nausea & Verified 10/23/21 22:03 Vomiting & Diarrhea pseudoephedrine HCl AdvReac chest Verified 10/23/21 22:03 [From Sudafed] pain/tachycardia sulfamethoxazole AdvReac Nausea & Verified 10/23/21 22:03 [From Bactrim] Vomiting Physical Exam Vitals: Vital Signs Temp Pulse Pulse Pulse Resp BP BP 10/24/21 08:25 97.9 F 76 17 136/80 10/24/21 04:58 144/93 10/24/21 03:35 99.8 F H 86 18 140/87 10/24/21 02:54 98.7 F 83 18 141/96 10/23/21 22:09 88 18 130/82 10/23/21 15:18 100.1 F H 104 H 20 175/110 Pulse Ox 10/24/21 08:25 98 10/24/21 04:58 10/24/21 03:35 97 10/24/21 02:54 97 10/23/21 22:09 96 10/23/21 15:18 98 Intake and Output 10/23/21 10/24/21 10/24/21 22:59 06:59 14:59 Other: # Voids 1 Weight 117.934 kg 118.8 kg PHYSICAL EXAMINATION: Patient is lying in the bed comfortably, no acute distress, awake alert and oriented.. HEENT: Normocephalic. Neck is supple. Pupils reactive. Nostrils clear. Oral cavity is moist. Neck reveals no JVD, carotid bruits, or thyromegaly. CHEST EXAMINATION: Trachea is central. Symmetrical expansion. Lung kebede clear to auscultation and percussion. Left upper chest Mediport with mild tenderness over the area. No discharge noted. CARDIAC: Normal S1, S2 with no gallops. No murmurs ABDOMEN: Soft. Bowel sounds normal. No organomegaly. No abdominal bruits. Extremities: reveal no edema. No clubbing or cyanosis Neurologically awake, alert, oriented x3 with well-coordinated movements. No focal deficits noted Skin: No rash or skin lesions. Psychiatric: Cooperative. Nonsuicidal Musculoskeletal: No joint swelling or deformity. Normal range of motion. Results CBC & Chem 7: 10/23/21 21:16 10/23/21 20:37 Labs: Abnormal Lab Results - Last 24 Hours (Table) 10/23/21 Range/Units 21:16 WBC 13.1 H (3.8-10.6) k/uL Plt Count 477 H (150-450) k/uL Neutrophils # 9.6 H (1.3-7.7) k/uL Thrombosis Risk Factor Assmnt - Choose All That Apply Any of the Below Risk Factors Present?: Yes Each Factor Represents 1 point: Minor surgery planned, Obesity (BMI >25), Sepsis (< 1month) Other Risk Factors: Yes Each Risk Factor Represents 2 Points: Central venous access Each Risk Factor Represents 3 Points: Family history of DVT/PE Thrombosis Risk Factor Assessment Total Risk Factor Score: 8 Thrombosis Risk Factor Assessment Level: High Risk Assessment and Plan Assessment: Positive blood cultures and was sent by her physician to ER.. Source could be the [facility] History of CVA/TIA Diabetes mellitus Mitochondrial disorder~myotonic dystrophy Dysautonomia Idiopathic intracranial hypertension Emily's disease Lymphedema of the left arm History of pituitary microadenoma Gastroparesis Migraine headaches with hemiplegia History of pernicious anemia History of PCOD Bilateral neuropathy Recurrent UTIs Neurogenic bladder Stress incontinence History of DVT Plan: Patient will be continued on IV hydration and antibiotics in the form of vancomycin. Repeat blood cultures were ordered. Continue with home medications including as needed medication for migraine. Continue with pain management. Continue to follow closely. ID was consulted. Time with Patient: Greater than 30
[2021-10-24] MEDS: busPIRone HCl 10 MG TAB PO SCH (21:30)
[2021-10-24] MEDS: NON FORMULARY DRUG (Dextroamphetamine/Amphetamine [Adderall] 10 MG Tablet) PO SCH (21:31)
[2021-10-24] MEDS: diphenhydrAMINE 25 MG CAP PO SCH (21:31)
[2021-10-24] MEDS: FENOFIBRATE 160 MG TAB PO SCH (21:32)
[2021-10-24] MEDS: LITHIUM CARBONATE 300 MG CAP PO SCH (21:33)
[2021-10-24] MEDS: RIVAROXABAN 20 MG TAB PO SCH (21:33)
[2021-10-24] MEDS: NON FORMULARY DRUG (Brexpiprazole [Rexulti] 0.5 MG Tablet) PO SCH (22:42)
[2021-10-24] MEDS: CLONIDINE 0.1 MG PO SCH (22:42)
[2021-10-24] MEDS: NON FORMULARY DRUG (Methenamine Hippurate [Methenamine Hippurate] 1 GM Tablet) PO SCH (22:43)
[2021-10-24] MEDS: TRIMETHOPRIM 100 MG TAB PO SCH (22:44)
[2021-10-24] MEDS: hydrOXYzine pamoate 25 MG CAP PO PRN (22:45)
[2021-10-25] MEDS: SODIUM CHLORIDE 0.9% 1,000 ML IV SCH ×3 (02:39→18:04)
[2021-10-25 06:07] LABS: Basophils # (A) 0.1 k/uL (0-0.2); Basophils % (A) 1 %; Eosinophils # (A) 0.5 k/uL (0-0.7); Eosinophils % (A) 6 %; HCT 33.3 % (34.0-46.0); HGB 11.1 gm/dL (11.4-16.0); Lymphocytes % (A) 14 %; MCHC 33.5 g/dL (31.0-37.0); MCV 89.4 fL (80.0-100.0); Mean Platelet Volume 6.9; Monocytes # (A) 0.6 k/uL (0-1.0); Monocytes % (A) 8 %; Neutrophils # (A) 5.3 k/uL (1.3-7.7); Neutrophils % (A) 71 %; Platelet Count 293 k/uL (150-450); RBC 3.72 m/uL (3.80-5.40); RDW 13.5 % (11.5-15.5); WBC 7.6 k/uL (3.8-10.6)
[2021-10-25 06:13] LABS: Glucose,Whole Blood 144 mg/dL (75-99)
[2021-10-25 06:17] LABS: African American GFR (CKD) >90 (>60 ml/min/1.73 sqM); Anion Gap 8 mmol/L; Blood Urea Nitrogen 9 mg/dL (7-17); Calcium 8.7 mg/dL (8.4-10.2); Carbon Dioxide 18 mmol/L (22-30); Chloride 111 mmol/L (98-107); Glucose 154 mg/dL (74-99); Non-African American GFR(CKD) >90 (>60 ml/min/1.73 sqM); Potassium 3.8 mmol/L (3.5-5.1); Sodium 137 mmol/L (137-145)
[2021-10-25] MEDS: INSULIN ASPART (NovoLOG) 100 UNIT/ML VIAL SQ SCH ×4 (06:23→22:45)
[2021-10-25] MEDS: LEVOTHYROXINE 125 MCG TAB PO SCH (06:23)
[2021-10-25] MEDS: LEVOTHYROXINE 100 MCG TAB PO SCH (06:26)
[2021-10-25] MEDS: NON FORMULARY DRUG (Mirabegron [Myrbetriq] 25 MG Tab.Er.24h) PO SCH (08:25)
[2021-10-25] MEDS: CLONIDINE 0.1 MG PO SCH ×2 (08:25→20:52)
[2021-10-25] MEDS: NON FORMULARY DRUG (Methenamine Hippurate [Methenamine Hippurate] 1 GM Tablet) PO SCH ×2 (08:25→20:52)
[2021-10-25] MEDS: NON FORMULARY DRUG (Fluticasone/Vilanterol [Breo Ellipta 100-25 Mcg Inhaler] 1 EACH Each) INHALATION SCH (08:25)
[2021-10-25] MEDS: GABAPENTIN 400 MG CAP PO SCH ×3 (08:26→20:50)
[2021-10-25] MEDS: MELOXICAM 7.5 MG TAB PO SCH (08:26)
[2021-10-25] MEDS: INSULIN DETEMIR (LEVEMIR) 100 UNIT/ML SYR SQ SCH (08:26)
[2021-10-25] MEDS: polyethylene glycoL 3350 17 GM POWD.PACK PO SCH (08:26)
[2021-10-25] MEDS: NON FORMULARY DRUG (Dextroamphetamine/Amphetamine [Adderall] 10 MG Tablet) PO SCH ×2 (08:26→16:37)
[2021-10-25] MEDS: METOPROLOL SUCCINATE (ER) 50 MG TAB.ER.24H PO SCH (08:27)
[2021-10-25] MEDS: busPIRone HCl 10 MG TAB PO SCH ×2 (08:27→22:36)
[2021-10-25] MEDS: CYANOCOBALAMIN 500 MCG TAB PO SCH (08:27)
[2021-10-25] MEDS: PANTOPRAZOLE 40 MG TABLET PO SCH (08:27)
[2021-10-25] MEDS: LORATADINE 10 MG TAB PO SCH (08:27)
[2021-10-25] MEDS: EZETIMIBE 10 MG TAB PO SCH (08:27)
[2021-10-25] MEDS: VANCOMYCIN 2,000 MG in SODIUM CHLORIDE 0.9% 500 ML 500 ML IVPB SCH ×2 (08:35→22:50)
[2021-10-25] MEDS: BUTALB/APAP/CAFF 50-325-40MG TAB PO PRN (09:28)
[2021-10-25] MEDS: ONDANSETRON 4 MG/2 ML VIAL IVP PRN ×2 (09:30→16:37)
[2021-10-25] MEDS: PROMETHAZINE 25 MG TAB PO PRN (11:20)
[2021-10-25 13:34] LABS: Glucose,Whole Blood 147 mg/dL (75-99)
[2021-10-25] MEDS: RIVAROXABAN 20 MG TAB PO SCH (15:20)
[2021-10-25 18:03] LABS: Glucose,Whole Blood 105 mg/dL (75-99)
[2021-10-25] MEDS: NON FORMULARY DRUG (Brexpiprazole [Rexulti] 0.5 MG Tablet) PO SCH (20:53)
--- NOTE | 2021-10-25 21:14 | PN ---
PROGRESS NOTE DATE OF SERVICE: 10/25/2021 REASON FOR FOLLOWUP: Staph epi bacteremia secondary to MediPort infection. INTERVAL HISTORY: The patient is afebrile. The patient is currently breathing comfortably. Still complaining of not feeling well and pain around the port site. The patient denies having any chest pain, shortness of breath or cough. No abdominal pain or diarrhea. PHYSICAL EXAMINATION: Blood pressure 148/91 with a pulse of 80, temperature 99.2. She is 97% on room air. General description is a middle-aged female lying in bed in no distress. Respiratory system: Unlabored breathing. Clear to auscultation anteriorly. Heart S1, S2. Regular rate and rhythm. Abdomen soft, no tenderness. LABS: Hemoglobin 11.1, white count 7.6, creatinine 0.61. Blood culture this admission has been negative. Blood culture done on was positive for Staph epi. DIAGNOSTIC IMPRESSION AND PLAN: Patient with Staphylococcus epidermidis bacteremia secondary to MediPort infection, failed to respond to outpatient IV vancomycin therapy. Plan is for removal of the port and a new port once the bacteremia is cleared. Surgery has been consulted. Continue IV vancomycin and monitor kidney function closely. MMODL / IJN: [id number] /
[2021-10-25 22:36] LABS: Glucose,Whole Blood 101 mg/dL (75-99)
[2021-10-25] MEDS: FENOFIBRATE 160 MG TAB PO SCH (22:36)
[2021-10-25] MEDS: LITHIUM CARBONATE 300 MG CAP PO SCH (22:36)
[2021-10-25] MEDS: TRIMETHOPRIM 100 MG TAB PO SCH (22:37)
[2021-10-25] MEDS: hydrOXYzine pamoate 25 MG CAP PO PRN (22:37)
[2021-10-25] MEDS: HYDROcodone/APAP 5-325MG 1 EACH TAB PO PRN (22:40)
[2021-10-25] MEDS: diphenhydrAMINE 25 MG CAP PO SCH (22:40)
[2021-10-26] MEDS: ONDANSETRON 4 MG/2 ML VIAL IVP PRN ×3 (00:32→22:30)
[2021-10-26 06:29] LABS: Glucose,Whole Blood 116 mg/dL (75-99)
[2021-10-26] MEDS: LEVOTHYROXINE 100 MCG TAB PO SCH (06:30)
[2021-10-26] MEDS: NON FORMULARY DRUG (Dextroamphetamine/Amphetamine [Adderall] 10 MG Tablet) PO SCH ×2 (06:30→18:38)
[2021-10-26] MEDS: PANTOPRAZOLE 40 MG TABLET PO SCH (06:30)
[2021-10-26] MEDS: LEVOTHYROXINE 125 MCG TAB PO SCH (06:30)
[2021-10-26] MEDS: INSULIN ASPART (NovoLOG) 100 UNIT/ML VIAL SQ SCH ×4 (06:31→23:28)
[2021-10-26] MEDS: SODIUM CHLORIDE 0.9% 1,000 ML IV SCH ×2 (06:31→17:24)
[2021-10-26 07:48] LABS: African American GFR (CKD) >90 (>60 ml/min/1.73 sqM); Non-African American GFR(CKD) >90 (>60 ml/min/1.73 sqM)
[2021-10-26] MEDS ORDERED: VANCOMYCIN TROUGH DUE 1 EACH MISC MISCELLANE ONE (08:00)
--- NOTE | 2021-10-26 08:49 | P.CONS ---
History of Present Illness - Reason for Consult Consult date: 10/24/21 infected port Requesting physician: Sakshi Thomas - Chief Complaint Fever x 1 week - History of Present Illness History of present illness : Patient is 41-year-old female with multiple comorbidities in this patient who did have a right chest wall Mediport placement for IV access few years ago patient was recently admitted at this facility did have a fever and bacteremia secondary to the right chest wall port infection blood culture positive for staph epidermidis patient was reluctant to the idea of removal of the port at that point and wanted to save it patient was given a 2-week course of IV vancomycin however at the end of antibiotic therapy the patient blood cultures from the port came back positive again and the patient has been directed to go to the hospital to be admitted for removal of the port elevated body therapy patient be complaining of not feeling that good and apparently has been running a fever as high as 102 F at home however no fever has been recorded since the patient has been admitted to the hospital patient complains of mild left upper chest wall tenderness at the site of the port with no redness or any drainage patient denies having any diarrhea no abdominal pain on presentation to the hospital patient did have a fever of 100.1 F patient did have white count of 13.1 with a left shift creatinine has been normal urine is negative howard PCR was negative patient was admitted to hospital infectious disease was consulted for further management Review of system: CONSTITUTIONAL: Positive for weakness along with the fever. EYES: No complaint. ENT: No complaint. RESPIRATORY: No complaint. CARDIOVASCULAR: No complaint. GENITOURINARY: No complaint. GASTROINTESTINAL: No complaint. MUSCULOSKELETAL: No complaint. INTEGUMENTARY: As per history of present illness. PSYCHOLOGIC: No complaint. ENDOCRINE: No complaint. NEUROLOGIC: No complaint. Past medical history : Reviewed, documented below Past surgical history : Reviewed, documented below Social history: Reviewed, documented below Medications: Reviewed, as documented below EXAMINATION: Vital sigans= Reviewed and documented below GENERAL DESCRIPTION: Middle-aged male lying in bed, no distress. No tachypnea or accessory muscle of respiration use. HEENT: Shows Pallor , no scleral icterus. Oral mucous membrane is dry. NECK: Trachea central, no thyromegaly. LUNGS: Unlabored breathing. Clear to auscultation anteriorly. No wheeze or crackle. HEART: S1, S2, regular rate and rhythm. ABDOMEN: Soft, no tenderness , guarding or rigidity EXTREMITIES: No edema of feet. SKIN: No rash, no masses palpable. NEUROLOGICAL: The patient is awake, alert, oriented x3, mood and affect normal. LABS AND RADIOLOGY: Reviewed results see below Assessment : Patient presented to the hospital with fever and this patient who did have right chest wall port with recent infection with staph epidermidis seem to have failed to respond to the outpatient IV vancomycin therapy and the patient benefit from removal of the port in order to heal of this infection currently no other obvious focus of infection no respiratory symptoms abdominal soft examination and urine was negative, patient has specifically requested Dr. Reynolds to be consulted for removal of the port and placement of a new port subsequently Plan: 1-vancomycin pharmacy to dose with a target trough of 15 while watching kidney function and Vanco trough closely. 2-surgery consultation for removal of the port We will follow on clinical condition and cultures to further adjust medication if needed Thank you for this consultation we will follow the patient along with you Past Medical History Past Medical History: CVA/TIA, Diabetes Mellitus, Deep Vein Thrombosis (DVT), Neurologic Disorder, Syncope, Thyroid Disorder Additional Past Medical History / Comment(s): port a cath rt chest , STROKE LIKE EPISODE D/T MITOCHRONDIAL DISEASE HAD WORK UP DONE AT [facility]. Dysautonomia, idiopathic intracranial HTN, lupus/ per pt last LUPUS ANTICOAGULANTS antiphosolipid test 06/10 neg., ana maria's disease, lymphedema Lt arm d/t DVTs,avoid use of lt arm for b/p,iv,blood draws, v-tach, pituitary microadenoma. patent foramen ovale, narcolepsy, gastropareis, HX orthostatic hypotension/syncope, migraines with hemiplegia, pernicious anemia, polycystic ovarian syndrome, neuropathy bilateral legs/feet - mild, uti's. neurogenic bladder, stress incontinence, uses wheelchair, able to transfer and walk few steps History of Any Multi-Drug Resistant Organisms: ESBL, MRSA Year Discovered:: 03/09/17 MRSA/ 05/17/18 ESBL MDRO Source:: MRSA LEFT ARM,/ESBL URINE ECOLI Past Surgical History: Cholecystectomy, Uterine Ablation Additional Past Surgical History / Comment(s): colonscopy/egd, angie, PORT-A -CATH INSERTION, Past Anesthesia/Blood Transfusion Reactions: Previous Problems w/ Anesthesia Additional Past Anesthesia/Blood Transfusion Reaction / Comm: patient states "It takes a lot of anesthesia for my body to react". Pt has received blood in past without reaction. pt has met with anesthesia-will bring in a summary page for anesthesia r/t mitochondrial disease Past Psychological History: Bipolar, Depression Additional Psychological History / Comment(s): . Smoking Status: Never smoker Past Alcohol Use History: None Reported Additional Past Alcohol Use History / Comment(s): . Past Drug Use History: None Reported - Past Family History Brother(s) Family Medical History: Diabetes Mellitus, Hyperlipidemia, Hypertension Additional Family Medical History / Comment(s): Patient states she has 1 brother with no major medical problems. Father Family Medical History: Diabetes Mellitus, Hyperlipidemia, Hypertension Additional Family Medical History / Comment(s): DAD IS 70 YEARS OLD. Patient states she does not have any contact with her father and does not know his medical history. Mother Family Medical History: CVA/TIA, Diabetes Mellitus, Deep Vein Thrombosis (DVT) Additional Family Medical History / Comment(s): antiphospholipid antibody syndrome lupus dementia Medications and Allergies Home Medications Medication Instructions Recorded Confirmed Type Levothyroxine Sodium [Synthroid] 100 mcg PO DAILY 01/16/19 10/23/21 History modafiniL [Provigil] 200 mg PO DAILY tab 03/07/19 10/23/21 Rx Methenamine Hippurate 1 gm PO BID 07/12/19 10/23/21 History Insulin Aspart [NovoLOG Flexpen] See Protocol SQ AC-TID 10/08/19 10/23/21 History Mirabegron [Myrbetriq] 25 mg PO DAILY 10/08/19 10/23/21 History Fenofibrate [Lofibra] 160 mg PO HS tab 10/17/19 10/23/21 Rx Gabapentin [Neurontin] 400 mg PO TID cap 10/17/19 10/23/21 Rx Metoprolol Succinate (ER) [Toprol 50 mg PO DAILY tab.er.24h 10/17/19 10/23/21 Rx XL] Rivaroxaban [Xarelto] 20 mg PO HS tab 10/17/19 10/23/21 Rx Trimethoprim [Trimpex] 100 mg PO HS tab 10/17/19 10/23/21 Rx Acetaminophen Tab [Tylenol] 650 mg PO Q6H PRN 11/29/19 10/23/21 History [place] Carbonate 900 mg PO HS 11/29/19 10/23/21 History Promethazine [Phenergan] 25 mg PO Q6H PRN 11/30/19 10/23/21 History Levothyroxine Sodium [Synthroid] 125 mcg PO MOTUWETH 12/28/19 10/23/21 History Albuterol Inhaler [Ventolin Hfa 2 puff INHALATION RT-Q4H PRN 09/19/20 10/23/21 History Inhaler] Clonidine Er 0.1mg 0.1 mg PO BID 09/19/20 10/23/21 History Dexlansoprazole [Dexilant] 60 mg PO DAILY 09/19/20 10/23/21 History Galcanezumab-Gnlm [Emgality Pen] 120 mg SQ Q30D 09/19/20 10/23/21 History Insulin Glargine,Hum.rec.anlog 70 unit SQ DAILY 09/19/20 10/23/21 History [Lantus Solostar Pen] Meloxicam [Mobic] 15 mg PO DAILY 09/19/20 10/23/21 History Rizatriptan Benzoate [Rizatriptan] 5 mg PO BID PRN 09/19/20 10/23/21 History Sodium Chloride 0.9% Iv 1,000 ml IV DAILY 09/19/20 10/23/21 History Brexpiprazole [Rexulti] 0.5 mg PO HS 06/01/21 10/23/21 History Cyanocobalamin (Vitamin B-12) 1,000 mcg PO DAILY 06/01/21 10/23/21 History [Vitamin B-12] Dextroamphetamine/Amphetamine 10 mg PO BID 06/01/21 10/23/21 History [Adderall] Ezetimibe [Zetia] 10 mg PO DAILY 06/01/21 10/23/21 History busPIRone HCL 30 mg PO BID 06/01/21 10/23/21 History Baclofen [Lioresal] 20 mg PO Q12HR PRN 06/02/21 10/23/21 History hydrOXYzine pamoate [Vistaril] 100 mg PO BID PRN 06/02/21 10/23/21 History HYDROcodone/APAP 5-325MG [[place] 1 tab PO Q6HR PRN 3 Days #12 tab 07/15/21 12/03/21 Rx 5-325] Fluticasone/Vilanterol [Breo 1 puff INHALATION RT-DAILY 09/27/21 10/23/21 History Ellipta 100-25 Mcg Inhaler] Loratadine 10 mg PO DAILY 09/27/21 10/23/21 History Ondansetron Odt [Zofran ODT] 8 mg PO Q12HR PRN 09/27/21 10/23/21 History diphenhydrAMINE HCL [Benadryl] 25 capsule PO HS 09/27/21 10/23/21 History polyethylene glycoL 3350 [Miralax] 17 gm PO DAILY 09/27/21 10/23/21 History Butalb/APAP/Caff 50-325-40Mg 1 tab PO Q8HR PRN 10/01/21 10/23/21 History [Fioricet 50-325-40] Ibuprofen [Motrin] 600 mg PO Q6HR PRN #30 tab 10/01/21 10/23/21 Rx Allergies Allergy/AdvReac Type Severity Reaction Status Date / Time peanut oil Allergy Severe Nausea & Verified 10/23/21 22:03 Vomiting,itching barium sulfate Allergy Anaphylaxis Verified 10/23/21 22:03 doxepin [Doxepin] Allergy Anaphylaxis Verified 10/23/21 22:03 ephedrine Allergy Chest Verified 10/23/21 22:03 Pain/tachycardia ertapenem [From Invanz] Allergy Rash/Hives Verified 10/23/21 22:03 peanut Allergy Nausea & Verified 10/23/21 22:03 Vomiting/itching pseudoephedrine Allergy Chest Pain Verified 10/23/21 22:03 sumatriptan [From Imitrex] Allergy Hallucinati Verified 10/23/21 22:03 ons doxycycline AdvReac Nausea & Verified 10/23/21 22:03 Vomiting & Diarrhea pseudoephedrine HCl AdvReac chest Verified 10/23/21 22:03 [From Sudafed] pain/tachycardia sulfamethoxazole AdvReac Nausea & Verified 10/23/21 22:03 [From Bactrim] Vomiting Physical Exam Vitals: Vital Signs Temp Pulse Pulse Pulse Resp BP BP 10/24/21 13:36 99.0 F 83 17 155/96 10/24/21 08:25 97.9 F 76 17 136/80 10/24/21 04:58 144/93 10/24/21 03:35 99.8 F H 86 18 140/87 10/24/21 02:54 98.7 F 83 18 141/96 10/23/21 22:09 88 18 130/82 Pulse Ox 10/24/21 13:36 99 10/24/21 08:25 98 10/24/21 04:58 10/24/21 03:35 97 10/24/21 02:54 97 10/23/21 22:09 96 Intake and Output 10/24/21 10/24/21 10/24/21 06:59 14:59 22:59 Other: # Voids 1 Weight 118.8 kg Results CBC & Chem 7: 10/25/21 05:52 10/26/21 07:22 Labs: Abnormal Lab Results - Last 24 Hours (Table) 10/23/21 Range/Units 21:16 WBC 13.1 H (3.8-10.6) k/uL Plt Count 477 H (150-450) k/uL Neutrophils # 9.6 H (1.3-7.7) k/uL
[2021-10-26] MEDS: INSULIN DETEMIR (LEVEMIR) 100 UNIT/ML SYR SQ SCH (10:48)
[2021-10-26] MEDS: VANCOMYCIN 2,000 MG in SODIUM CHLORIDE 0.9% 500 ML 500 ML IVPB SCH ×2 (10:49→22:24)
[2021-10-26] MEDS: EZETIMIBE 10 MG TAB PO SCH (10:50)
[2021-10-26] MEDS: busPIRone HCl 10 MG TAB PO SCH ×2 (10:50→22:28)
[2021-10-26] MEDS: CYANOCOBALAMIN 500 MCG TAB PO SCH (10:51)
[2021-10-26] MEDS: LORATADINE 10 MG TAB PO SCH (10:51)
[2021-10-26] MEDS: MELOXICAM 7.5 MG TAB PO SCH (10:52)
[2021-10-26] MEDS: METOPROLOL SUCCINATE (ER) 50 MG TAB.ER.24H PO SCH (10:53)
[2021-10-26] MEDS: GABAPENTIN 400 MG CAP PO SCH ×3 (10:53→22:27)
[2021-10-26] MEDS: polyethylene glycoL 3350 17 GM POWD.PACK PO SCH (10:55)
[2021-10-26] MEDS: NON FORMULARY DRUG (Methenamine Hippurate [Methenamine Hippurate] 1 GM Tablet) PO SCH ×2 (10:58→22:28)
[2021-10-26] MEDS: NON FORMULARY DRUG (Mirabegron [Myrbetriq] 25 MG Tab.Er.24h) PO SCH (10:59)
[2021-10-26] MEDS: CLONIDINE 0.1 MG PO SCH ×2 (11:01→22:29)
--- NOTE | 2021-10-26 11:13 | P.PN ---
Subjective Progress Note Date: 10/25/21 Principal diagnosis: Bacteremia Ms. Lam is a 41-year-old female with a past medical history of CVA/TIA, diabetes mellitus, DVT, dysautonomia, gastroparesis, orthostatic hypot ension/syncope, pernicious anemia, obesity already, neuropathy of bilateral lower extremities, mitochondrial disorder causing myotonic dystrophy Presents to ER by the request of her physician due to positive blood cultures. Patient was recently discharged from hospital on 10/01/2021 with vancomycin for 2 weeks due to staph epidermidis bacteremia which was suspected from the MediPort which she used for IV hydration. Mediport was removed at the time and patient was discharged home with 2 weeks of IV antibiotics. Patient had recultured a week ago to see if the antibiotics were effective. The cultures were again positive for staph. Dr. Otoole wanted her admitted for IV antibiotics and port removal. Patient states that she has been fevers up to 102 F at home. Denies any nausea or vomiting. Patient also complaining of some tenderness over the left upper chest at the port site. Otherwise denied any chest pain. No cough or sputum production. No nausea vomiting or abdominal pain or diarrhea. On admission blood pressure 141/96 pulse 83 respiration 18 pulse ox 97% on room air and T-max is 99.8. Laboratory data showed WBC 13.1 hemoglobin 12.5 and platelets 477 neutrophils 9.6 BUN 11 creatinine 0.66 liver enzymes are not elevated UA negative for infection Coronavirus PCR not detected. 10/25/2021 Patient is currently resting in bed. Afebrile. No complaints of chest pain or shortness of breath. No fever no chills over night. Patient is being continued on vancomycin. Denied blood cultures have been negative so far. ID is on board. Possible Mediport removal tomorrow. Current on pain management and home medications. no nausea vomiting or abdominal pain or diarrhea. Laboratory data reviewed. Current medications reviewed. Objective - Vital Signs Vital signs: Vital Signs Temp 99.5 F 10/25/21 20:31 Pulse 90 10/25/21 20:31 Resp 16 10/25/21 20:31 BP 152/92 10/25/21 20:31 Pulse Ox 98 10/25/21 20:31 Intake & Output 10/25/21 10/25/21 10/26/21 06:59 18:59 06:59 Intake Total 3540 Balance 3540 Intake: Intake, IV Titration 1800 Amount Sodium Chloride 0.9% 1, 1300 000 ml @ 75 mls/hr IV . [id number] JOSE Rx#:[id number] Vancomycin 2,000 mg In 500 Sodium Chloride 0.9% 500 ml 500 ml @ 167 mls/hr IVPB Q12HR JOSE Rx#: [id number] Oral 1740 Other: # Voids 2 3 - Exam PHYSICAL EXAMINATION: Patient is lying in the bed comfortably, no acute distress, awake alert and oriented.. HEENT: Normocephalic. Neck is supple. Pupils reactive. Nostrils clear. Oral cavity is moist. Neck reveals no JVD, carotid bruits, or thyromegaly. CHEST EXAMINATION: Trachea is central. Symmetrical expansion. Lung kebede clear to auscultation and percussion. Left upper chest Mediport with mild tenderness over the area. No discharge noted. CARDIAC: Normal S1, S2 with no gallops. No murmurs ABDOMEN: Soft. Bowel sounds normal. No organomegaly. No abdominal bruits. Extremities: reveal no edema. No clubbing or cyanosis Neurologically awake, alert, oriented x3 with well-coordinated movements. No focal deficits noted Skin: No rash or skin lesions. Psychiatric: Cooperative. Nonsuicidal Musculoskeletal: No joint swelling or deformity. Normal range of motion. - Labs CBC & Chem 7: 10/25/21 05:52 10/26/21 07:22 Labs: Abnormal Lab Results - Last 24 Hours (Table) 10/25/21 10/25/21 10/25/21 Range/Units 05:52 05:52 05:52 RBC 3.72 L (3.80-5.40) m/uL Hgb 11.1 L (11.4-16.0) gm/dL Hct 33.3 L (34.0-46.0) % Chloride 111 H (98-107) mmol/L Carbon Dioxide 18 L (22-30) mmol/L Glucose 154 H (74-99) mg/dL POC Glucose (mg/dL) (75-99) mg/dL Hemoglobin A1c 6.2 H (4.0-6.0) % 10/25/21 10/25/21 10/25/21 Range/Units 06:12 13:32 18:01 RBC (3.80-5.40) m/uL Hgb (11.4-16.0) gm/dL Hct (34.0-46.0) % Chloride (98-107) mmol/L Carbon Dioxide (22-30) mmol/L Glucose (74-99) mg/dL POC Glucose (mg/dL) 144 H 147 H 105 H (75-99) mg/dL Hemoglobin A1c (4.0-6.0) % Microbiology - Last 24 Hours (Table) 10/23/21 20:40 Blood Culture - Preliminary Blood No Growth after 24 hours 10/23/21 20:25 Blood Culture - Preliminary Blood No Growth after 24 hours Assessment and Plan Assessment: Positive blood cultures and was sent by her physician to ER.. Source could be the Mediport History of CVA/TIA Diabetes mellitus Mitochondrial disorder~myotonic dystrophy Dysautonomia Idiopathic intracranial hypertension Emily's disease Lymphedema of the left arm History of pituitary microadenoma Gastroparesis Migraine headaches with hemiplegia History of pernicious anemia History of PCOD Bilateral neuropathy Recurrent UTIs Neurogenic bladder Stress incontinence History of DVT Plan: Patient will be continued on IV hydration and antibiotics in the form of vancomycin. Repeat blood cultures negative so far. Mediport removal. Continue with home medications including as needed medication for migraine. Continue with pain management. Continue to follow closely. ID is on board.
--- NOTE | 2021-10-26 11:53 | CDI ---
Documentation Clarification Form Date: 10/26/2021 11:42:03 AM From: Katrin Cook CCS, CCDS Admit Date: 10/23/2021 09:32:00 PM Patient Name: Francisca Khoury Visit Number: [id number] Discharge Date: ATTENTION: The Clinical Documentation Specialists (CDI) and [facility] Coding Staff appreciate your assistance in clarifying documentation. Please respond to the clarification below the line at the bottom and electronically sign. The CDI & [facility] Coding staff will review the response and follow-up if needed. Please note: Queries are made part of the Legal Health Record. If you have any questions, please contact the author of this message via ITS. Dr. Sakshi Thomas: The patient presented with the following clinical indicators: Recent admit with a Mediport Infection with positive blood culture for Staph Epidermidis Bacteremia. Discharged home with IV Vancomycin. Returned with possible continued infection, failed outpatient IV antibiotic treatment. Additional clarification regarding the etiology/cause of the clinical indicators is requested. History/Risk Factors per the 10/24 H/P: CVA, IDDM II with bilateral peripheral neuropathy, Mitochondrial disorder myotonic dystrophy, Dysautonomia, Idiopathic intracranial hypertension, Emily's disease, Lymphedema of left arm, Pituitary microadenoma, Gastroparesis, Migraine headaches with hemiplegia, Pernicious anemia, Recurrent UTIs, Neurogenic bladder, Stress Incontinence, Bipolar, DVT, Obesity, Wheelchair confinement. Clinical Indicators: Presented to the ED on 10/23 with fever, positive blood cultures. Being treated for a Mediport Infection for several months with IV Vancomycin. Cultures positive for Staph. Admit with Bacteremia, Port or [place] infection 10/23 VS: T 100.1, P 104, R 20, BP 175/110, PO 98 RA, BMI: 43.6 10/23 LAB: WBC 13.1, Pl Ct 477, Neut 9.6, Glucose 108, Lactic Acid 1.4 10/23 UA: clear, negative 10/23 COVID negative 10/23 Blood cultures x2: Preliminary @ 48 hrs: negative Treatment: IV NaCl 500 mls @ 1000 mls/hr q35M, IV NaCl 1,000 mls @ 75 mls/hr q13H, IV Heparin x1, IV Rocephin, IV Vancomycin. In your professional opinion, please clarify if these findings signify one of the following conditions: [ ] Sepsis POA, Please identify the organism and source if known: [ ] Sepsis, Not POA, Please identify the organism and source if known: [ ] Sepsis ruled out [ ] Other, please specify [ ] Unable to determine (Template Last Reviewed: December 2020) Sepsis POA, Raoul positive bacteremia MTDD
[2021-10-26 12:57] LABS: Glucose,Whole Blood 155 mg/dL (75-99)
--- NOTE | 2021-10-26 13:41 | P.GSCN ---
History of Present Illness Consult date: 10/26/21 History of present illness: CHIEF COMPLAINT: Infected port HISTORY OF PRESENT ILLNESS: This is a 41-year-old female who has a MediPort in place for daily IV fluids. Patient presents to the emergency room due to having positive blood cultures and outpatient setting. Patient recently discharged from hospital on 10/01/2021 with vancomycin for 2 weeks due to a staph ep idermidis bacteremia which was suspected from her MediPort. Patient continued to have positive blood cultures in the outpatient setting with fevers as high as 102. Infectious disease recommended patient presented to the hospital for further IV antibiotics and to have the MediPort removed. Surgical service has been consult. For Mediport removal. Patient does takes Xarelto due to a history of DVT. She did have a low-grade temp of 100.1 on admission with white count elevated at 13.1. Patient does have a medical history that is extensive but does include a mitochondrial disorder causing myotonic dystrophy. Patient denies any redness or significant drainage from the port site. She reports that a few weeks ago when she removed the needle from the port there was a small amount of pus. PAST MEDICAL HISTORY: See list. PAST SURGICAL HISTORY: See list. MEDICATIONS: See list. ALLERGIES: See list. SOCIAL HISTORY: No illicit drug use. REVIEW OF SYSTEMS: CONSTITUTIONAL: Denies fever or chills. HEENT: Denies blurred vision, vision changes, or eye pain. Denies hemoptysis ENDOCRINE: Denies heat or cold intolerance. CARDIOVASCULAR: Denies chest pain or pressure. RESPIRATORY: No shortness of breath. GASTROINTESTINAL: Denies abdominal pain. Denies nausea or vomiting. NEURO: Denies history of seizures. PSYCH: No depression or suicidal ideation HEMATOLOGIC: Denies bleeding disorders. LYMPHATIC: The patient denies any lumps and bumps around the neck. GENITOURINARY: Denies any blood in urine or increased urinary frequency. MUSCULOSKELETAL: Denies myalgias. Denies joint swelling. Denies decreased range of motion beyond patients baseline. SKIN: Denies pruitis. Denies rash. PHYSICAL EXAM: VITAL SIGNS: Reviewed GENERAL: Well-developed in no acute distress. HEENT: No sclera icterus. Extraocular movements grossly intact. Moist buccal mucosa. Head is atraumatic, normocephalic. Hears conversational speech. No nasal drainage. NECK: Supple without lymphadenopathy. CHEST: Non-labored respirations and equal bilateral excursions. CARDIOVASCULAR: Palpable 2+ radial pulses. ABDOMEN: Soft. Nondistended. Nontender MUSCULOSKELETAL: No clubbing or cyanosis. NEUROLOGIC: No focal or lateralizing signs. Cranial nerves II through XII grossly intact. PSYCH: Appropriate affect. Alert and oriented to person, place and time. SKIN: Well perfused. Good skin turgor. Port site no evidence of erythema or drainage. Minimal tenderness with palpation LABORATORY DATA: WBC is 13.1 down to 7.6 Hgb 11.1 platelets 293 sodium 137 potassium 3.8 creatinine 0.61 A1c 6.2 Urinalysis negative Blood cultures from 10/23/2021 show no growth IMAGING: ASSESSMENT: 1. Bacteremia with MediPort as possible source of infection 2. History of mitochondrial disorder causing myotonic dystrophy 3. History of DVT on Xarelto at home 4. History of idiopathic intracranial hypertension 5. Ana Maria's disease 6. Gastroparesis 7. History of pernicious anemia 8. History of diabetes 9. Bipolar 10. 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 History of CVA 12. History of lupus 13. History of pituitary microadenoma 14. History of polycystic ovarian syndrome PLAN: -Patient tentatively scheduled for Mediport removal on 10/28/[address] Mendez -Check chest x-ray for further evaluation of current port -Order bilateral upper extremity Doppler to rule out DVT -We'll discuss with ID service regarding possible PICC line placement until new MediPort can be placed -Continue antibiotics per ID service -Continue supportive care -Continue to hold Xarelto -Okay to start a regular diet Thank you for this consultation Physician Seam [employer]ber note has been reviewed by physician. Signing provider agrees with the documented findings, assessment, and plan of care. Past Medical History Past Medical History: CVA/TIA, Diabetes Mellitus, Deep Vein Thrombosis (DVT), Neurologic Disorder, Syncope, Thyroid Disorder Additional Past Medical History / Comment(s): port a cath rt chest , STROKE LIKE EPISODE D/T MITOCHRONDIAL DISEASE HAD WORK UP DONE AT [facility]. Dysautonomia, idiopathic intracranial HTN, lupus/ per pt last LUPUS ANTICOAGULANTS antiphosolipid test 06/10 neg., ana maria's disease, lymphedema Lt arm d/t DVTs,avoid use of lt arm for b/p,iv,blood draws, v-tach, pituitary microad enoma. patent foramen ovale, narcolepsy, gastropareis, HX orthostatic hypotension/syncope, migraines with hemiplegia, pernicious anemia, polycystic ovarian syndrome, neuropathy bilateral legs/feet - mild, uti's. neurogenic bladder, stress incontinence, uses wheelchair, able to transfer and walk few steps History of Any Multi-Drug Resistant Organisms: ESBL, MRSA Year Discovered:: 03/09/17 MRSA/ 05/17/18 ESBL MDRO Source:: MRSA LEFT ARM,/ESBL URINE ECOLI Past Surgical History: Cholecystectomy, Uterine Ablation Additional Past Surgical History / Comment(s): colonscopy/egd, angie, PORT-A -CATH INSERTION, Past Anesthesia/Blood Transfusion Reactions: Previous Problems w/ Anesthesia Additional Past Anesthesia/Blood Transfusion Reaction / Comm: patient states "It takes a lot of anesthesia for my body to react". Pt has received blood in past without reaction. pt has met with anesthesia-will bring in a summary page for anesthesia r/t mitochondrial disease Past Psychological History: Bipolar, Depression Additional Psychological History / Comment(s): . Smoking Status: Never smoker Past Alcohol Use History: None Reported Additional Past Alcohol Use History / Comment(s): . Past Drug Use History: None Reported - Past Family History Brother(s) Family Medical History: Diabetes Mellitus, Hyperlipidemia, Hypertension Additional Family Medical History / Comment(s): Patient states she has 1 brother with no major medical problems. Father Family Medical History: Diabetes Mellitus, Hyperlipidemia, Hypertension Additional Family Medical History / Comment(s): DAD IS 70 YEARS OLD. Patient states she does not have any contact with her father and does not know his medical history. Mother Family Medical History: CVA/TIA, Diabetes Mellitus, Deep Vein Thrombosis (DVT) Additional Family Medical History / Comment(s): antiphospholipid antibody syndrome lupus dementia Medications and Allergies Home Medications Medication Instructions Recorded Confirmed Type Levothyroxine Sodium [Synthroid] 100 mcg PO DAILY 01/16/19 10/23/21 History modafiniL [Provigil] 200 mg PO DAILY tab 03/07/19 10/23/21 Rx Methenamine Hippurate 1 gm PO BID 07/12/19 10/23/21 History Insulin Aspart [NovoLOG Flexpen] See Protocol SQ AC-TID 10/08/19 10/23/21 History Mirabegron [Myrbetriq] 25 mg PO DAILY 10/08/19 10/23/21 History Fenofibrate [Lofibra] 160 mg PO HS tab 10/17/19 10/23/21 Rx Gabapentin [Neurontin] 400 mg PO TID cap 10/17/19 10/23/21 Rx Metoprolol Succinate (ER) [Toprol 50 mg PO DAILY tab.er.24h 10/17/19 10/23/21 Rx XL] Rivaroxaban [Xarelto] 20 mg PO HS tab 10/17/19 10/23/21 Rx Trimethoprim [Trimpex] 100 mg PO HS tab 10/17/19 10/23/21 Rx Acetaminophen Tab [Tylenol] 650 mg PO Q6H PRN 11/29/19 10/23/21 History [place] Carbonate 900 mg PO HS 11/29/19 10/23/21 History Promethazine [Phenergan] 25 mg PO Q6H PRN 11/30/19 10/23/21 History Levothyroxine Sodium [Synthroid] 125 mcg PO MOTUWETH 12/28/19 10/23/21 History Albuterol Inhaler [Ventolin Hfa 2 puff INHALATION RT-Q4H PRN 09/19/20 10/23/21 History Inhaler] Clonidine Er 0.1mg 0.1 mg PO BID 09/19/20 10/23/21 History Dexlansoprazole [Dexilant] 60 mg PO DAILY 09/19/20 10/23/21 History Galcanezumab-Gnlm [Emgality Pen] 120 mg SQ Q30D 09/19/20 10/23/21 History Insulin Glargine,Hum.rec.anlog 70 unit SQ DAILY 09/19/20 10/23/21 History [Lantus Solostar Pen] Meloxicam [Mobic] 15 mg PO DAILY 09/19/20 10/23/21 History Rizatriptan Benzoate [Rizatriptan] 5 mg PO BID PRN 09/19/20 10/23/21 History Sodium Chloride 0.9% Iv 1,000 ml IV DAILY 09/19/20 10/23/21 History Brexpiprazole [Rexulti] 0.5 mg PO HS 06/01/21 10/23/21 History Cyanocobalamin (Vitamin B-12) 1,000 mcg PO DAILY 06/01/21 10/23/21 History [Vitamin B-12] Dextroamphetamine/Amphetamine 10 mg PO BID 06/01/21 10/23/21 History [Adderall] Ezetimibe [Zetia] 10 mg PO DAILY 06/01/21 10/23/21 History busPIRone HCL 30 mg PO BID 06/01/21 10/23/21 History Baclofen [Lioresal] 20 mg PO Q12HR PRN 06/02/21 10/23/21 History hydrOXYzine pamoate [Vistaril] 100 mg PO BID PRN 06/02/21 10/23/21 History HYDROcodone/APAP 5-325MG [[place] 1 tab PO Q6HR PRN 3 Days #12 tab 06/04/21 10/23/21 Rx 5-325] Fluticasone/Vilanterol [Breo 1 puff INHALATION RT-DAILY 09/27/21 10/23/21 History Ellipta 100-25 Mcg Inhaler] Loratadine 10 mg PO DAILY 09/27/21 10/23/21 History Ondansetron Odt [Zofran ODT] 8 mg PO Q12HR PRN 09/27/21 10/23/21 History diphenhydrAMINE HCL [Benadryl] 25 capsule PO HS 09/27/21 10/23/21 History polyethylene glycoL 3350 [Miralax] 17 gm PO DAILY 09/27/21 10/23/21 History Butalb/APAP/Caff 50-325-40Mg 1 tab PO Q8HR PRN 10/01/21 10/23/21 History [Fioricet 50-325-40] Ibuprofen [Motrin] 600 mg PO Q6HR PRN #30 tab 10/01/21 10/23/21 Rx Allergies Allergy/AdvReac Type Severity Reaction Status Date / Time peanut oil Allergy Severe Nausea & Verified 10/23/21 22:03 Vomiting,itching barium sulfate Allergy Anaphylaxis Verified 10/23/21 22:03 doxepin [Doxepin] Allergy Anaphylaxis Verified 10/23/21 22:03 ephedrine Allergy Chest Verified 10/23/21 22:03 Pain/tachycardia ertapenem [From Invanz] Allergy Rash/Hives Verified 10/23/21 22:03 peanut Allergy Nausea & Verified 10/23/21 22:03 Vomiting/itching pseudoephedrine Allergy Chest Pain Verified 10/23/21 22:03 sumatriptan [From Imitrex] Allergy Hallucinati Verified 10/23/21 22:03 ons doxycycline AdvReac Nausea & Verified 10/23/21 22:03 Vomiting & Diarrhea pseudoephedrine HCl AdvReac chest Verified 10/23/21 22:03 [From Sudafed] pain/tachycardia sulfamethoxazole AdvReac Nausea & Verified 10/23/21 22:03 [From Bactrim] Vomiting Surgical - Exam Vital Signs Temp Pulse Resp BP Pulse Ox 100.1 F H 104 H 20 175/110 98 10/23/21 15:18 10/23/21 15:18 10/23/21 15:18 10/23/21 15:18 10/23/21 15:18 Results - Labs 10/25/21 05:52 10/26/21 07:22 Abnormal Lab Results - Last 24 Hours (Table) 10/25/21 10/25/21 10/25/21 Range/Units 05:52 13:32 18:01 POC Glucose (mg/dL) 147 H 105 H (75-99) mg/dL Hemoglobin A1c 6.2 H (4.0-6.0) % 10/25/21 10/26/21 10/26/21 Range/Units 22:34 06:28 12:56 POC Glucose (mg/dL) 101 H 116 H 155 H (75-99) mg/dL Hemoglobin A1c (4.0-6.0) % Microbiology - Last 24 Hours (Table) 10/23/21 20:40 Blood Culture - Preliminary Blood No Growth after 48 hours 10/23/21 20:25 Blood Culture - Preliminary Blood No Growth after 48 hours Diabetes panel 10/25/21 10/26/21 Range/Units 05:52 07:22 Creatinine 0.69 (0.52-1.04) mg/dL Hemoglobin A1c 6.2 H (4.0-6.0) % Pituitary panel 10/26/21 Range/Units 07:22 Creatinine 0.69 (0.52-1.04) mg/dL Adrenal panel 10/26/21 Range/Units 07:22 Creatinine 0.69 (0.52-1.04) mg/dL
[2021-10-26] MEDS ORDERED: LEVOTHYROXINE 125 MCG TAB PO SCH (14:40)
--- NOTE | 2021-10-26 16:45 | US ---
EXAMINATION TYPE: US venous doppler duplex UE DATE OF EXAM: 10/26/2021 COMPARISON: US CLINICAL HISTORY: infected Mediport, hx DVT. Prior history of left arm DVT per patient; blood thinner was put on hold. Patient stated has history of lymphedema left arm. Right chest wall port is present and also noted Right upper arm superficial vein IV is present. SIDE PERFORMED: bilateral arm Right Arm: Negative for DVT as veins were visualized. Bilateral brachial veins are very small and dis tally not well seen. Left Arm: Negative for DVT as veins were visualized. Left Cephalic Vein is not visualized. IMPRESSION: No evidence of deep vein thrombosis in both arms.
--- NOTE | 2021-10-26 17:21 | XR ---
EXAMINATION TYPE: XR chest 2V DATE OF EXAM: 10/26/2021 COMPARISON: 10/01/2021 HISTORY: Line placement TECHNIQUE: FINDINGS: Heart and mediastinum are normal. Lungs are clear. Diaphragm is normal. Pulmonary vasculari ty is normal. There is right central venous catheter with tip in the superior vena cava. There is no pleural effusion. IMPRESSION: No active cardiopulmonary disease. No change.
[2021-10-26 17:57] LABS: Glucose,Whole Blood 107 mg/dL (75-99)
[2021-10-26] MEDS: TRIMETHOPRIM 100 MG TAB PO SCH (22:27)
[2021-10-26] MEDS: LITHIUM CARBONATE 300 MG CAP PO SCH (22:27)
[2021-10-26] MEDS: diphenhydrAMINE 25 MG CAP PO SCH (22:27)
[2021-10-26] MEDS: FENOFIBRATE 160 MG TAB PO SCH (22:27)
[2021-10-26] MEDS: NON FORMULARY DRUG (Brexpiprazole [Rexulti] 0.5 MG Tablet) PO SCH (22:28)
[2021-10-26] MEDS: hydrOXYzine pamoate 25 MG CAP PO PRN (22:41)
--- NOTE | 2021-10-26 23:20 | PN ---
PROGRESS NOTE DATE OF SERVICE: 10/26/2021 REASON FOR FOLLOWUP: Infected Mediport. INTERVAL HISTORY: Patient is afebrile. The patient is breathing comfortably. Denies having any chest pain or shortness of breath or cough. No vomiting. No abdominal pain or diarrhea. EXAMINATION: Her blood pressure 152/88 with a pulse of 76, temperature 99.1. She is 96% on room air. General description is a middle-aged female lying in bed in no distress. Respiratory system: Unlabored breathing, clear to auscultation anteriorly. Heart S1, S2. Regular rate and rhythm. Abdomen soft, no tenderness. LABS: Creatinine 0.69. Vanco level 16. Blood culture negative. DIAGNOSTIC IMPRESSION AND PLAN: This patient with Staphylococcus epidermidis bacteremia secondary to infected MediPort. Waiting for removal of the port. Patient is covered with vancomycin. Continue supportive care. MMODL / IJN: [id number] /
--- NOTE | 2021-10-26 23:55 | P.PN ---
Subjective Progress Note Date: 10/26/21 Bacteremia Ms. Lam is a 41-year-old female with a past medical history of CVA/TIA, diabetes mellitus, DVT, dysautonomia, gastroparesis, orthostatic hypotension/syncope, pernicious anemia, obesity already, neuropathy of bilateral lower extremities, mitochondrial disorder causing myotonic dystrophy Presents to ER by the request of her physician due to positive blood cultures. Patient was recently discharged from hospital on 10/01/2021 with vancomycin for 2 weeks due to staph epidermidis bacteremia which was suspected from the MediPort which she used for IV hydration. Mediport was removed at the time and patient was discharged home with 2 weeks of IV antibiotics. Patient had recultured a week ago to see if the antibiotics were effective. The cultures were again positive for staph. Dr. Otoole wanted her admitted for IV antibiotics and port removal. Patient states that she has been fevers up to 102 F at home. Denies any nausea or vomiting. Patient also complaining of some tenderness over the left upper chest at the port site. Otherwise denied any chest pain. No cough or sputum production. No nausea vomiting or abdominal pain or diarrhea. On admission blood pressure 141/96 pulse 83 respiration 18 pulse ox 97% on room air and T-max is 99.8. Laboratory data showed WBC 13.1 hemoglobin 12.5 and platelets 477 neutrophils 9.6 BUN 11 creatinine 0.66 liver enzymes are not elevated UA negative for infection Coronavirus PCR not detected. 10/25/2021 Patient is currently resting in bed. Afebrile. No complaints of chest pain or shortness of breath. No fever no chills over night. Patient is being continued on vancomycin. Denied blood cultures have been negative so far. ID is on board. Possible Mediport removal tomorrow. Current on pain management and home medications. no nausea vomiting or abdominal pain or diarrhea. Laboratory data reviewed. 10/26/2021 Patient is seen in follow up this morning and is being followed by infectious disease and maintained on vancomycin and will continue. General surgery has been consulted for mediport removal and tentatively being planned for Tuesday due to the severity of the surgeries scheduled. Patient is also to be off an ticoagulant and xarelto is being held. Patient given a diet and will be NPO night before surgery. Patient is continuing with occasional abdominal pain but severity is less intense. Occasional nausea. Patient denies any chest pain or shortness of breath. afebrile today. No reported vomiting noted Active Medications Acetaminophen (Acetaminophen Tab 325 Mg Tab) 650 mg PO Q6HR PRN PRN Reason: Mild Pain or Fever > 100.5 Last Admin: 10/24/21 04:18 Dose: 650 mg Documented by: Acetaminophen (Acetaminophen Tab 325 Mg Tab) 650 mg PO Q6H PRN PRN Reason: Fever and/ or MILD Pain Acetaminophen/Butalbital/Caffeine (Butalb/Apap/Caff 50-325-40mg Tab) 1 each PO Q8HR PRN PRN Reason: headache Last Admin: 10/25/21 09:28 Dose: 1 each Documented by: Hydrocodone Bitart/Acetaminophen (Hydrocodone/Apap 5-325mg 1 Each Tab) 1 each PO Q6HR PRN PRN Reason: MODERATE Pain Last Admin: 10/25/21 22:40 Dose: 1 each Documented by: Albuterol Sulfate (Albuterol Nebulized 2.5 Mg/3 Ml) 2.5 mg INHALATION RT-Q4H PRN PRN Reason: Shortness Of Breath Baclofen (Baclofen 10 Mg Tab) 20 mg PO Q12HR PRN PRN Reason: Pain Buspirone HCl (Buspirone Hcl 10 Mg Tab) 30 mg PO BID [facility] Last Admin: 10/26/21 22:28 Dose: 30 mg Documented by: Cyanocobalamin (Cyanocobalamin 500 Mcg Tab) 1,000 mcg PO DAILY [facility] Last Admin: 10/26/21 10:51 Dose: 1,000 mcg Documented by: Diphenhydramine HCl (Diphenhydramine 25 Mg Cap) 25 mg PO [facility] Last Admin: 10/26/21 22:27 Dose: 25 mg Documented by: Ezetimibe (Ezetimibe 10 Mg Tab) 10 mg PO DAILY [facility] Last Admin: 10/26/21 10:50 Dose: 10 mg Documented by: Fenofibrate (Fenofibrate 160 Mg Tab) 160 mg PO [facility] Last Admin: 10/26/21 22:27 Dose: 160 mg Documented by: Gabapentin (Gabapentin 400 Mg Cap) 400 mg PO TID [facility] Last Admin: 10/26/21 22:27 Dose: 400 mg Documented by: Hydroxyzine Pamoate (Hydroxyzine Pamoate 25 Mg Cap) 100 mg PO BID PRN PRN Reason: Anxiety Last Admin: 10/26/21 22:41 Dose: 100 mg Documented by: Sodium Chloride (Saline 0.9%) 1,000 mls @ 75 mls/hr IV .[id number] [facility] Last Admin: 10/26/21 17:24 Dose: 75 mls/hr Documented by: Vancomycin HCl 2,000 mg/ (Sodium Chloride) 500 mls @ 167 mls/hr IVPB Q12HR [facility] Last Admin: 10/26/21 22:24 Dose: 167 mls/hr Documented by: Insulin Aspart (Insulin Aspart (Novolog) 100 Unit/Ml Vial) 0 unit SQ ACHS [facility]; Protocol Last Admin: 10/26/21 23:28 Dose: Not Given Documented by: Insulin Detemir (Insulin Detemir (Levemir) 100 Unit/Ml Syr) 70 unit SQ DAILY [facility] Last Admin: 10/26/21 10:48 Dose: 70 unit Documented by: Levothyroxine Sodium (Levothyroxine 100 Mcg Tab) 100 mcg PO DAILY@0630 [facility] Last Admin: 10/26/21 06:30 Dose: 100 mcg Documented by: Levothyroxine Sodium (Levothyroxine 125 Mcg Tab) 125 mcg PO MoTuWeTh@0630 [facility] Last Admin: 10/26/21 06:30 Dose: 125 mcg Documented by: [place] Carbonate ([place] Carbonate 300 Mg Cap) 900 mg PO HS [facility] Last Admin: 10/26/21 22:27 Dose: 900 mg Documented by: Loratadine (Loratadine 10 Mg Tab) 10 mg PO DAILY [facility] Last Admin: 10/26/21 10:51 Dose: 10 mg Documented by: Meloxicam (Meloxicam 7.5 Mg Tab) 15 mg PO DAILY [facility] Last Admin: 10/26/21 10:52 Dose: Not Given Documented by: Metoprolol Succinate (Metoprolol Succinate (Er) 50 Mg Tab.Er.24h) 50 mg PO DAILY [facility] Last Admin: 10/26/21 10:53 Dose: 50 mg Documented by: Modafinil (Modafinil 200 Mg Tab) 200 mg PO DAILY [facility] Last Admin: 10/26/21 10:53 Dose: 200 mg Documented by: Naloxone HCl (Naloxone 0.4 Mg/Ml 1 Ml Vial) 0.2 mg IV Q2M PRN PRN Reason: Opioid Reversal Non-Formulary Medication (Brexpiprazole [Rexulti]) 0.5 mg PO [facility] Last Admin: 10/26/21 22:28 Dose: 0.5 mg Documented by: Non-Formulary Medication (Clonidine Er 0.1mg) 0.1 mg PO BID [facility] Last Admin: 10/26/21 22:29 Dose: 0.1 mg Documented by: Non-Formulary Medication (Fluticasone/Vilanterol [Breo Ellipta 100-25 Mcg Inhaler]) 1 puff INHALATION RT-DAILY [facility] Last Admin: 10/25/21 08:25 Dose: 1 puff Documented by: Non-Formulary Medication (Methenamine Hippurate [Methenamine Hippurate]) 1 gm PO BID [facility] Last Admin: 10/26/21 22:28 Dose: 1 gm Documented by: Non-Formulary Medication (Mirabegron [Myrbetriq]) 25 mg PO DAILY [facility] Last Admin: 10/26/21 10:59 Dose: 25 mg Documented by: Non-Formulary Medication (Dextroamphetamine/Amphetamine [Adderall]) 10 mg PO BID@0730,1600 [facility] Last Admin: 10/26/21 18:38 Dose: Not Given Documented by: Ondansetron HCl (Ondansetron 4 Mg/2 Ml Vial) 4 mg IVP Q6HR PRN PRN Reason: Nausea And Vomiting Last Admin: 10/26/21 22:30 Dose: 4 mg Documented by: Pantoprazole Sodium (Pantoprazole 40 Mg Tablet) 40 mg PO AC-BRKFST [facility] Last Admin: 10/26/21 06:30 Dose: 40 mg Documented by: Polyethylene Glycol (Polyethylene Glycol 3350 17 Gm Powd.Pack) 17 gm PO DAILY [facility] Last Admin: 10/26/21 10:55 Dose: 17 gm Documented by: Promethazine HCl (Promethazine 25 Mg Tab) 25 mg PO Q6H PRN PRN Reason: Nausea Last Admin: 10/25/21 11:20 Dose: 25 mg Documented by: Sumatriptan Succinate (Sumatriptan Succinate 50 Mg Tab) 50 mg PO BID PRN PRN Reason: Migraine Headache Trimethoprim (Trimethoprim 100 Mg Tab) 100 mg PO [facility] Last Admin: 10/26/21 22:27 Dose: 100 mg Documented by: Physical Exam: Patient is lying in the bed comfortably, no acute distress, awake alert and oriented.. HEENT: Normocephalic. Neck is supple. Pupils reactive. Nostrils clear. Oral cavity is moist. Neck reveals no JVD, carotid bruits, or thyromegaly. CHEST EXAMINATION: Trachea is central. Symmetrical expansion. Lung kebede clear to auscultation and percussion. Left upper chest Mediport with mild tenderness over the area. No discharge noted. CARDIAC: Normal S1, S2 with no gallops. No murmurs ABDOMEN: Soft. Bowel sounds normal. No organomegaly. No abdominal bruits. Extremities: reveal no edema. No clubbing or cyanosis Neurologically awake, alert, oriented x3 with well-coordinated movements. No focal deficits noted Skin: No rash or skin lesions. Psychiatric: Cooperative. Nonsuicidal Musculoskeletal: No joint swelling or deformity. Normal range of motion. Assessment: Positive blood cultures and was sent by her physician to ER.. Source could be the Mediport possible sepsis, present on admission secondary to mediport infection History of CVA/TIA Diabetes mellitus Mitochondrial disorder~myotonic dystrophy Dysautonomia Idiopathic intracranial hypertension Emily's disease Lymphedema of the left arm History of pituitary microadenoma Gastroparesis Migraine headaches with hemiplegia History of pernicious anemia History of PCOD Bilateral neuropathy Recurrent UTIs Neurogenic bladder Stress incontinence History of DVT Full code Plan: Patient will be continued on IV hydration and antibiotics in the form of vancomycin. Repeat blood cultures negative so far. Mediport removal scheduled tentatively for Tuesday with general surgery. Xarelto on hold. Resume diet and will repeat am labs. Continue with home medications including as needed medication for migraine. C ontinue with pain management. Continue to follow closely. ID is on board. Objective - Vital Signs Vital signs: Vital Signs Temp 99.1 F 10/26/21 08:30 Pulse 83 10/26/21 08:30 Resp 16 10/26/21 08:30 BP 151/92 10/26/21 08:30 Pulse Ox 99 10/26/21 08:30 Intake & Output 10/25/21 10/26/21 10/26/21 18:59 06:59 18:59 Intake Total 3540 Balance 3540 Intake: Intake, IV Titration 1800 Amount Sodium Chloride 0.9% 1, 1300 000 ml @ 75 mls/hr IV . [id number] [facility] Rx#:[id number] Vancomycin 2,000 mg In 500 Sodium Chloride 0.9% 500 ml 500 ml @ 167 mls/hr IVPB Q12HR [facility] Rx#: [id number] Oral 1740 Other: # Voids 3 1 - Labs CBC & Chem 7: 10/25/21 05:52 10/26/21 07:22 Labs: Abnormal Lab Results - Last 24 Hours (Table) 10/25/21 10/25/21 10/25/21 Range/Units 05:52 13:32 18:01 POC Glucose (mg/dL) 147 H 105 H (75-99) mg/dL Hemoglobin A1c 6.2 H (4.0-6.0) % 10/25/21 10/26/21 Range/Units 22:34 06:28 POC Glucose (mg/dL) 101 H 116 H (75-99) mg/dL Hemoglobin A1c (4.0-6.0) % Microbiology - Last 24 Hours (Table) 10/23/21 20:40 Blood Culture - Preliminary Blood No Growth after 48 hours 10/23/21 20:25 Blood Culture - Preliminary Blood No Growth after 48 hours
[2021-10-27] MEDS: NON FORMULARY DRUG (Fluticasone/Vilanterol [Breo Ellipta 100-25 Mcg Inhaler] 1 EACH Each) INHALATION SCH ×2 (03:19→09:38)
[2021-10-27] MEDS: LEVOTHYROXINE 100 MCG TAB PO SCH (06:19)
[2021-10-27] MEDS: LEVOTHYROXINE 125 MCG TAB PO SCH (06:19)
[2021-10-27] MEDS: NON FORMULARY DRUG (Dextroamphetamine/Amphetamine [Adderall] 10 MG Tablet) PO SCH ×2 (06:19→16:45)
[2021-10-27] MEDS: PANTOPRAZOLE 40 MG TABLET PO SCH (06:19)
[2021-10-27 06:23] LABS: Glucose,Whole Blood 120 mg/dL (75-99)
[2021-10-27] MEDS: INSULIN ASPART (NovoLOG) 100 UNIT/ML VIAL SQ SCH ×4 (06:24→21:44)
[2021-10-27 06:25] LABS: Basophils % (A) 1 %; Eosinophils # (A) 0.5 k/uL (0-0.7); Eosinophils % (A) 6 %; HCT 33.9 % (34.0-46.0); HGB 11.1 gm/dL (11.4-16.0); Lymphocytes # (A) 1.5 k/uL (1.0-4.8); Lymphocytes % (A) 19 %; MCH 29.5 pg (25.0-35.0); MCHC 32.9 g/dL (31.0-37.0); MCV 89.8 fL (80.0-100.0); Mean Platelet Volume 6.7; Monocytes # (A) 0.5 k/uL (0-1.0); Monocytes % (A) 6 %; Neutrophils # (A) 5.4 k/uL (1.3-7.7); Neutrophils % (A) 67 %; Platelet Count 296 k/uL (150-450); RBC 3.78 m/uL (3.80-5.40); RDW 13.8 % (11.5-15.5)
[2021-10-27 06:45] LABS: African American GFR (CKD) >90 (>60 ml/min/1.73 sqM); Anion Gap 8 mmol/L; Blood Urea Nitrogen 11 mg/dL (7-17); Calcium 9.1 mg/dL (8.4-10.2); Carbon Dioxide 19 mmol/L (22-30); Chloride 110 mmol/L (98-107); Glucose 124 mg/dL (74-99); Non-African American GFR(CKD) >90 (>60 ml/min/1.73 sqM); Potassium 3.8 mmol/L (3.5-5.1); Sodium 137 mmol/L (137-145)
[2021-10-27] MEDS: CLONIDINE 0.1 MG PO SCH ×2 (09:39→21:23)
[2021-10-27] MEDS: MELOXICAM 7.5 MG TAB PO SCH (09:51)
[2021-10-27] MEDS: busPIRone HCl 10 MG TAB PO SCH ×2 (09:51→21:43)
[2021-10-27] MEDS: METOPROLOL SUCCINATE (ER) 50 MG TAB.ER.24H PO SCH (09:52)
[2021-10-27] MEDS: EZETIMIBE 10 MG TAB PO SCH (09:53)
[2021-10-27] MEDS: CYANOCOBALAMIN 500 MCG TAB PO SCH (09:55)
[2021-10-27] MEDS: VANCOMYCIN 2,000 MG in SODIUM CHLORIDE 0.9% 500 ML 500 ML IVPB SCH ×2 (09:56→21:31)
[2021-10-27] MEDS: INSULIN DETEMIR (LEVEMIR) 100 UNIT/ML SYR SQ SCH (09:57)
[2021-10-27 09:58] LABS: Prothrombin Time 10.4 sec (9.0-12.0)
[2021-10-27] MEDS: NON FORMULARY DRUG (Methenamine Hippurate [Methenamine Hippurate] 1 GM Tablet) PO SCH ×2 (09:59→21:27)
[2021-10-27] MEDS: NON FORMULARY DRUG (Mirabegron [Myrbetriq] 25 MG Tab.Er.24h) PO SCH (10:00)
[2021-10-27] MEDS: polyethylene glycoL 3350 17 GM POWD.PACK PO SCH (10:01)
[2021-10-27] MEDS: GABAPENTIN 400 MG CAP PO SCH ×3 (10:06→21:22)
[2021-10-27] MEDS: LORATADINE 10 MG TAB PO SCH (10:06)
[2021-10-27] MEDS: ONDANSETRON 4 MG/2 ML VIAL IVP PRN (10:07)
[2021-10-27 13:29] LABS: Glucose,Whole Blood 127 mg/dL (75-99)
--- NOTE | 2021-10-27 15:22 | P.PN ---
Subjective Progress Note Date: 10/27/21 CHIEF COMPLAINT: Infected Port-A-Cath HISTORY OF PRESENT ILLNESS: This is a 41-year-old female with history of bacteremia likely due to Port-A-Cath infection. She is currently on IV antibiotics. Repeat blood cultures are negative. Surgical service is following in regards to removal of MediPort. Venous Doppler negative for DVT. Chest x- ray no active cardiopulmonary disease. No change. Afebrile. WBC 8.0 Hgb 11.1 platelets 296 INR 1.0 creatinine 0.71 potassium 3.8 blood cultures remain negative. Patient scheduled for PICC line placement today however, the interventional radiologist is not available and likely PICC line will be placed tomorrow. PHYSICAL EXAM: VITAL SIGNS: Reviewed GENERAL: Well-developed in no acute distress. HEENT: No sclera icterus. Extraocular movements grossly intact. Moist buccal mucosa. Head is atraumatic, normocephalic. Hears conversational speech. No nasal drainage. NECK: Supple without lymphadenopathy. CHEST: Non-labored respirations and equal bilateral excursions. CARDIOVASCULAR: Palpable 2+ radial pulses. ABDOMEN: Soft. Nondistended. Nontender. MUSCULOSKELETAL: No clubbing or cyanosis. NEUROLOGIC: No focal or lateralizing signs. Cranial nerves II through XII grossly intact. PSYCH: Appropriate affect. Alert and oriented to person, place and time. SKIN: Well perfused. Good skin turgor. Mild tenderness with palpation of the MediPort site. No significant drainage or redness. Small scab at needle insertion noted ASSESSMENT: 1. Bacteremia likely secondary to Port-A-Cath infection 2. History of mitochondrial disorder causing myotonic dystrophy 3. History of DVT on Xarelto at home 4. History of idiopathic intracranial hypertension 5. Emily's disease 6. Gastroparesis 7. History of pernicious anemia 8. History of diabetes 9. Bipolar 10. 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 History of CVA 12. History of lupus 13. History of pituitary microadenoma 14. History of polycystic ovarian syndrome PLAN: -Patient scheduled for removal of Port-A-Cath tomorrow, 10/28/[address] Mendez -Keep patient nothing by mouth after midnight -Continue antibiotics per ID service -Continue to hold Xarelto -Patient will need picc line placement for IV access until new Port-A-Cath is placed Physician Rn Internship note has been reviewed by physician. Signing provider agrees with the documented findings, assessment, and plan of care. Objective - Vital Signs Vital signs: Vital Signs Temp 98.1 F 10/27/21 08:20 Pulse 76 10/27/21 08:20 Resp 18 10/27/21 08:20 BP 136/79 10/27/21 08:20 Pulse Ox 100 10/27/21 08:20 Intake & Output 10/26/21 10/27/21 10/27/21 18:59 06:59 18:59 Other: # Voids 4 2 # Bowel Movements 2 - Labs CBC & Chem 7: 10/27/21 06:06 10/27/21 06:06 Labs: Abnormal Lab Results - Last 24 Hours (Table) 10/26/21 10/27/21 10/27/21 Range/Units 17:56 06:06 06:06 RBC 3.78 L (3.80-5.40) m/uL Hgb 11.1 L (11.4-16.0) gm/dL Hct 33.9 L (34.0-46.0) % Chloride 110 H (98-107) mmol/L Carbon Dioxide 19 L (22-30) mmol/L Glucose 124 H (74-99) mg/dL POC Glucose (mg/dL) 107 H (75-99) mg/dL 10/27/21 10/27/21 Range/Units 06:22 13:28 RBC (3.80-5.40) m/uL Hgb (11.4-16.0) gm/dL Hct (34.0-46.0) % Chloride (98-107) mmol/L Carbon Dioxide (22-30) mmol/L Glucose (74-99) mg/dL POC Glucose (mg/dL) 120 H 127 H (75-99) mg/dL Microbiology - Last 24 Hours (Table) 10/23/21 20:25 Blood Culture - Preliminary Blood No Growth after 72 hours 10/23/21 20:40 Blood Culture - Preliminary Blood No Growth after 72 hours
[2021-10-27] MEDS ORDERED: LIDOCAINE 1% INJ 10MG/ML (20 ML MDV) SQ ONE (15:40)
--- NOTE | 2021-10-27 16:08 | IR ---
PICC LINE PLACEMENT: HISTORY: Infection requiring long-term antibiotic therapy PROCEDURE: Ultrasound and fluoroscopic guidance of PICC line placement. COMPLICATIONS: None ANESTHESIA: 1. 1% Lidocaine locally. FINDINGS/TECHNIQUE: The procedure was explained to the patient. The risks, complications, benefits and alternatives were discussed and any questions were answered. Informed consent was obtained. The patient was placed supine on the fluoroscopic table and prepped and draped in the usual sterile fash ion. Utilizing a 21 gauge needle and sonographic and fluoroscopic guidance, access in the right bas ilic vein was achieved and there is placement of a 0.018 guidewire. The vein is patent. A 4-F sheat h was placed over the guidewire. The guidewire and dilator were removed and a 4-F. PICC line was craig ebony through the sheath with the tip at the level of the SVC. The sheath was removed, the catheter wa s flushed and sutured into position. The patient was stable throughout the procedure and remained st able upon discharge from the Department of Radiology. The vein puncture was patent under ultrasound. A esteves scale image was obtained to document patency of the vein punctured. All elements of the maximal barrier technique were utilized. FLUOROSCOPY TIME: 0.2 minutes and one image submitted IMPRESSION: Successful PICC line placement under ultrasound and fluoroscopic guidance.
[2021-10-27] MEDS ORDERED: hydrALAZINE HCL 10 MG TAB PO PRN (16:18)
--- NOTE | 2021-10-27 16:20 | P.PN ---
Subjective Progress Note Date: 10/27/21 Bacteremia Ms. Lam is a 41-year-old female with a past medical history of CVA/TIA, diabetes mellitus, DVT, dysautonomia, gastroparesis, orthostatic hypotension/syncope, pernicious anemia, obesity already, neuropathy of bilateral lower extremities, mitochondrial disorder causing myotonic dystrophy Presents to ER by the request of her physician due to positive blood cultures. Patient was recently discharged from hospital on 10/01/2021 with vancomycin for 2 weeks due to staph epidermidis bacteremia which was suspected from the MediPort which she used for IV hydration. Mediport was removed at the time and patient was discharged home with 2 weeks of IV antibiotics. Patient had recultured a week ago to see if the antibiotics were effective. The cultures were again positive for staph. Dr. Otoole wanted her admitted for IV antibiotics and port removal. Patient states that she has been fevers up to 102 F at home. Denies any nausea or vomiting. Patient also complaining of some tenderness over the left upper chest at the port site. Otherwise denied any chest pain. No cough or sputum production. No nausea vomiting or abdominal pain or diarrhea. On admission blood pressure 141/96 pulse 83 respiration 18 pulse ox 97% on room air and T-max is 99.8. Laboratory data showed WBC 13.1 hemoglobin 12.5 and platelets 477 neutrophils 9.6 BUN 11 creatinine 0.66 liver enzymes are not elevated UA negative for infection Coronavirus PCR not detected. 10/25/2021 Patient is currently resting in bed. Afebrile. No complaints of chest pain or shortness of breath. No fever no chills over night. Patient is being continued on vancomycin. Denied blood cultures have been negative so far. ID is on board. Possible Mediport removal tomorrow. Current on pain management and home medications. no nausea vomiting or abdominal pain or diarrhea. Laboratory data reviewed. 10/26/2021 Patient is seen in follow up this morning and is being followed by infectious disease and maintained on vancomycin and will continue. General surgery has been consulted for mediport removal and tentatively being planned for Tuesday due to the severity of the surgeries scheduled. Patient is also to be off an ticoagulant and xarelto is being held. Patient given a diet and will be NPO night before surgery. Patient is continuing with occasional abdominal pain but severity is less intense. Occasional nausea. Patient denies any chest pain or shortness of breath. afebrile today. No reported vomiting noted 10/27/2021 She is seen and evaluated today and is being monitored by infectious disease and general surgery following. Plan is for PICC line placement and Mediport removal with surgery tomorrow. Patient will be nothing by mouth at midnight. Patient denies any history of hypertension states her blood pressure is normally on the low side and blood pressures have been measuring daily elevated. Patient with mild low-grade intermittent temps of 99.6 and will continue to monitor closely. She is maintained on IV vancomycin with infectious disease following. Labs: WBC is 8.0, hemoglobin is 11.1, platelets are 296, INR is 1.0, sodium is 137, potassium 3.8, creatinine 0.71, calcium is 9.1 Active Medications Acetaminophen (Acetaminophen Tab 325 Mg Tab) 650 mg PO Q6H PRN PRN Reason: Fever and/ or MILD Pain Acetaminophen/Butalbital/Caffeine (Butalb/Apap/Caff 50-325-40mg Tab) 1 each PO Q8HR PRN PRN Reason: headache Last Admin: 10/25/21 09:28 Dose: 1 each Documented by: Hydrocodone Bitart/Acetaminophen (Hydrocodone/Apap 5-325mg 1 Each Tab) 1 each PO Q6HR PRN PRN Reason: MODERATE Pain Last Admin: 10/25/21 22:40 Dose: 1 each Documented by: Albuterol Sulfate (Albuterol Nebulized 2.5 Mg/3 Ml) 2.5 mg INHALATION RT-Q4H PRN PRN Reason: Shortness Of Breath Baclofen (Baclofen 10 Mg Tab) 20 mg PO Q12HR PRN PRN Reason: Pain Buspirone HCl (Buspirone Hcl 10 Mg Tab) 30 mg PO BID [facility] Last Admin: 10/27/21 09:51 Dose: 30 mg Documented by: Cyanocobalamin (Cyanocobalamin 500 Mcg Tab) 1,000 mcg PO DAILY JO[facility] Last Admin: 10/27/21 09:55 Dose: 1,000 mcg Documented by: Diphenhydramine HCl (Diphenhydramine 25 Mg Cap) 25 mg PO HS [facility] Last Admin: 10/26/21 22:27 Dose: 25 mg Documented by: Ezetimibe (Ezetimibe 10 Mg Tab) 10 mg PO DAILY [facility] Last Admin: 10/27/21 09:53 Dose: 10 mg Documented by: Fenofibrate (Fenofibrate 160 Mg Tab) 160 mg PO [facility] Last Admin: 10/26/21 22:27 Dose: 160 mg Documented by: Gabapentin (Gabapentin 400 Mg Cap) 400 mg PO TID [facility] Last Admin: 10/27/21 10:06 Dose: 400 mg Documented by: Hydroxyzine Pamoate (Hydroxyzine Pamoate 25 Mg Cap) 100 mg PO BID PRN PRN Reason: Anxiety Last Admin: 10/26/21 22:41 Dose: 100 mg Documented by: Sodium Chloride (Saline 0.9%) 1,000 mls @ 75 mls/hr IV .[id number] [facility] Last Admin: 10/26/21 17:24 Dose: 75 mls/hr Documented by: Vancomycin HCl 2,000 mg/ (Sodium Chloride) 500 mls @ 167 mls/hr IVPB Q12HR [facility] Last Admin: 10/27/21 09:56 Dose: 167 mls/hr Documented by: Insulin Aspart (Insulin Aspart (Novolog) 100 Unit/Ml Vial) 0 unit SQ [facility]; Protocol Last Admin: 10/27/21 13:32 Dose: Not Given Documented by: Insulin Detemir (Insulin Detemir (Levemir) 100 Unit/Ml Syr) 70 unit SQ DAILY [facility] Last Admin: 10/27/21 09:57 Dose: 70 unit Documented by: Levothyroxine Sodium (Levothyroxine 100 Mcg Tab) 100 mcg PO DAILY@0630 [facility] Last Admin: 10/27/21 06:19 Dose: 100 mcg Documented by: Levothyroxine Sodium (Levothyroxine 125 Mcg Tab) 125 mcg PO MoTuWeTh@0630 [facility] Last Admin: 10/27/21 06:19 Dose: 125 mcg Documented by: [place] Carbonate ([place] Carbonate 300 Mg Cap) 900 mg PO [facility] Last Admin: 10/26/21 22:27 Dose: 900 mg Documented by: Loratadine (Loratadine 10 Mg Tab) 10 mg PO DAILY [facility] Last Admin: 10/27/21 10:06 Dose: 10 mg Documented by: Meloxicam (Meloxicam 7.5 Mg Tab) 15 mg PO DAILY [facility] Last Admin: 10/27/21 09:51 Dose: Not Given Documented by: Metoprolol Succinate (Metoprolol Succinate (Er) 50 Mg Tab.Er.24h) 50 mg PO DAILY [facility] Last Admin: 10/27/21 09:52 Dose: 50 mg Documented by: Modafinil (Modafinil 200 Mg Tab) 200 mg PO DAILY [facility] Last Admin: 10/27/21 10:06 Dose: 200 mg Documented by: Naloxone HCl (Naloxone 0.4 Mg/Ml 1 Ml Vial) 0.2 mg IV Q2M PRN PRN Reason: Opioid Reversal Non-Formulary Medication (Brexpiprazole [Rexulti]) 0.5 mg PO HS [facility] Last Admin: 10/26/21 22:28 Dose: 0.5 mg Documented by: Non-Formulary Medication (Clonidine Er 0.1mg) 0.1 mg PO BID [facility] Last Admin: 10/27/21 09:39 Dose: 0.1 mg Documented by: Non-Formulary Medication (Fluticasone/Vilanterol [Breo Ellipta 100-25 Mcg I nhaler]) 1 puff INHALATION RT-DAILY [facility] Last Admin: 10/27/21 09:38 Dose: 1 puff Documented by: Non-Formulary Medication (Methenamine Hippurate [Methenamine Hippurate]) 1 gm PO BID [facility] Last Admin: 10/27/21 09:59 Dose: 1 gm Documented by: Non-Formulary Medication (Mirabegron [Myrbetriq]) 25 mg PO DAILY [facility] Last Admin: 10/27/21 10:00 Dose: 25 mg Documented by: Non-Formulary Medication (Dextroamphetamine/Amphetamine [Adderall]) 10 mg PO BID@0730,1600 [facility] Last Admin: 10/27/21 06:19 Dose: 10 mg Documented by: Ondansetron HCl (Ondansetron 4 Mg/2 Ml Vial) 4 mg IVP Q6HR PRN PRN Reason: Nausea And Vomiting Last Admin: 10/27/21 10:07 Dose: 4 mg Documented by: Pantoprazole Sodium (Pantoprazole 40 Mg Tablet) 40 mg PO AC-BRKFST [facility] Last Admin: 10/27/21 06:19 Dose: 40 mg Documented by: Polyethylene Glycol (Polyethylene Glycol 3350 17 Gm Powd.Pack) 17 gm PO DAILY [facility] Last Admin: 10/27/21 10:01 Dose: Not Given Documented by: Promethazine HCl (Promethazine 25 Mg Tab) 25 mg PO Q6H PRN PRN Reason: Nausea Last Admin: 10/25/21 11:20 Dose: 25 mg Documented by: Sumatriptan Succinate (Sumatriptan Succinate 50 Mg Tab) 50 mg PO BID PRN PRN Reason: Migraine Headache Trimethoprim (Trimethoprim 100 Mg Tab) 100 mg PO HS [facility] Last Admin: 10/26/21 22:27 Dose: 100 mg Documented by: Physical Exam: Patient is lying in the bed comfortably, no acute distress, awake alert and oriented.. HEENT: Normocephalic. Neck is supple. Pupils reactive. Nostrils clear. Oral cavity is moist. Neck reveals no JVD, carotid bruits, or thyromegaly. CHEST EXAMINATION: Trachea is central. Symmetrical expansion. Lung kebede clear to auscultation and percussion. Left upper chest Mediport with mild tenderness over the area. No discharge noted. CARDIAC: Normal S1, S2 with no gallops. No murmurs ABDOMEN: Soft. Bowel sounds normal. No organomegaly. No abdominal bruits. Extremities: reveal no edema. No clubbing or cyanosis Neurologically awake, alert, oriented x3 with well-coordinated movements. No focal deficits noted Skin: No rash or skin lesions. Psychiatric: Cooperative. Non-suicidal Musculoskeletal: No joint swelling or deformity. Normal range of motion. Assessment: Positive blood cultures and was sent by her physician to ER.. Source could be the Mediport possible sepsis, present on admission secondary to mediport infection History of CVA/TIA Diabetes mellitus Mitochondrial disorder~myotonic dystrophy Dysautonomia Idiopathic intracranial hypertension Emily's disease Lymphedema of the left arm History of pituitary microadenoma Gastroparesis Migraine headaches with hemiplegia History of pernicious anemia History of PCOD Bilateral neuropathy Recurrent UTIs Neurogenic bladder Stress incontinence History of DVT Full code Plan: Patient will be continued on IV hydration and antibiotics in the form of vancomycin. Repeat blood cultures negative so far. Mediport removal scheduled tentatively for tomorrow with general surgery. Nubia on hold. Patient is scheduled for PICC line today. Pressures running mildly elevated and patient states she is normally hypotensive and has been receiving large amounts of fluid and will continue to monitor and use hydralazine by mouth as needed for blood pressure systolic over 160. Resume diet and will repeat am labs. Continue with home medications including as needed medication for migraine. Continue with pain management. Continue to follow closely. ID is on board. Objective - Vital Signs Vital signs: Vital Signs Temp 98.1 F 10/27/21 08:20 Pulse 76 10/27/21 08:20 Resp 18 10/27/21 08:20 BP 136/79 10/27/21 08:20 Pulse Ox 100 10/27/21 08:20 Intake & Output 10/26/21 10/27/21 10/27/21 18:59 06:59 18:59 Other: # Voids 4 2 # Bowel Movements 2 - Labs CBC & Chem 7: 10/27/21 06:06 10/27/21 06:06 Labs: Abnormal Lab Results - Last 24 Hours (Table) 10/26/21 10/26/21 10/27/21 Range/Units 12:56 17:56 06:06 RBC 3.78 L (3.80-5.40) m/uL Hgb 11.1 L (11.4-16.0) gm/dL Hct 33.9 L (34.0-46.0) % Chloride (98-107) mmol/L Carbon Dioxide (22-30) mmol/L Glucose (74-99) mg/dL POC Glucose (mg/dL) 155 H 107 H (75-99) mg/dL 10/27/21 10/27/21 Range/Units 06:06 06:22 RBC (3.80-5.40) m/uL Hgb (11.4-16.0) gm/dL Hct (34.0-46.0) % Chloride 110 H (98-107) mmol/L Carbon Dioxide 19 L (22-30) mmol/L Glucose 124 H (74-99) mg/dL POC Glucose (mg/dL) 120 H (75-99) mg/dL Microbiology - Last 24 Hours (Table) 10/23/21 20:25 Blood Culture - Preliminary Blood No Growth after 72 hours 10/23/21 20:40 Blood Culture - Preliminary Blood No Growth after 72 hours
[2021-10-27] MEDS: SODIUM CHLORIDE 0.9% 1,000 ML IV SCH (16:45)
[2021-10-27 18:14] LABS: Glucose,Whole Blood 126 mg/dL (75-99)
[2021-10-27] MEDS: HYDROcodone/APAP 5-325MG 1 EACH TAB PO PRN (18:42)
[2021-10-27] MEDS ORDERED: diphenhydrAMINE 25 MG CAP ONE (21:00)
[2021-10-27] MEDS: NON FORMULARY DRUG (Brexpiprazole [Rexulti] 0.5 MG Tablet) PO SCH (21:25)
[2021-10-27 21:36] LABS: Glucose,Whole Blood 132 mg/dL (75-99)
[2021-10-27] MEDS: LITHIUM CARBONATE 300 MG CAP PO SCH (21:42)
[2021-10-27] MEDS: FENOFIBRATE 160 MG TAB PO SCH (21:42)
[2021-10-27] MEDS: TRIMETHOPRIM 100 MG TAB PO SCH (21:43)
[2021-10-28] MEDS ORDERED: ACETAMINOPHEN TAB 325 MG TAB ONE
[2021-10-28] MEDS ORDERED: ONDANSETRON 4 MG/2 ML VIAL ONE
--- NOTE | 2021-10-28 02:15 | PN ---
PROGRESS NOTE DATE OF SERVICE: 10/27/2021 REASON FOR FOLLOWUP: Fever secondary to MediPort infection. INTERVAL COURSE: The patient is afebrile. The patient is breathing comfortably. Denies having any chest pain. No shortness of breath or cough. No abdominal pain. No diarrhea. PHYSICAL EXAMINATION: Blood pressure 161/87 with a pulse of 78, temperature 98.4. She is 98% on room air. General description is a rate. LABS: the blood tests the blood sugar. This is a concern for infection. Still waiting for the next week MMODL / IJN: [id number] /
[2021-10-28] MEDS: LEVOTHYROXINE 100 MCG TAB PO SCH (05:55)
[2021-10-28] MEDS: LEVOTHYROXINE 125 MCG TAB PO SCH (05:55)
[2021-10-28] MEDS: PANTOPRAZOLE 40 MG TABLET PO SCH (06:37)
[2021-10-28] MEDS: NON FORMULARY DRUG (Dextroamphetamine/Amphetamine [Adderall] 10 MG Tablet) PO SCH (06:38)
[2021-10-28] MEDS: SODIUM CHLORIDE 0.9% 1,000 ML IV SCH (06:38)
[2021-10-28 06:41] LABS: Glucose,Whole Blood 134 mg/dL (75-99)
[2021-10-28] MEDS: INSULIN ASPART (NovoLOG) 100 UNIT/ML VIAL SQ SCH ×3 (06:43→18:09)
[2021-10-28 07:56] LABS: African American GFR (CKD) >90 (>60 ml/min/1.73 sqM); Non-African American GFR(CKD) 90 (>60 ml/min/1.73 sqM)
[2021-10-28] MEDS: diphenhydrAMINE 25 MG CAP PO SCH (08:00)
[2021-10-28] MEDS: MELOXICAM 7.5 MG TAB PO SCH (08:48)
[2021-10-28] MEDS: VANCOMYCIN 2,000 MG in SODIUM CHLORIDE 0.9% 500 ML 500 ML IVPB SCH ×2 (09:09→16:52)
[2021-10-28] MEDS: busPIRone HCl 10 MG TAB PO SCH (09:27)
[2021-10-28] MEDS: GABAPENTIN 400 MG CAP PO SCH ×2 (09:27→17:07)
[2021-10-28] MEDS: METOPROLOL SUCCINATE (ER) 50 MG TAB.ER.24H PO SCH (09:27)
[2021-10-28] MEDS: CLONIDINE 0.1 MG PO SCH (09:28)
[2021-10-28] MEDS: NON FORMULARY DRUG (Methenamine Hippurate [Methenamine Hippurate] 1 GM Tablet) PO SCH (09:28)
[2021-10-28] MEDS ORDERED: IV FLUID CONTINUATION 1,000 ML IV ONE (11:48)
--- NOTE | 2021-10-28 11:49 | P.PN ---
Subjective Progress Note Date: 10/28/21 CHIEF COMPLAINT: Infected Port-A-Cath HISTORY OF PRESENT ILLNESS: The patient is a 41-year-old female with history of infected Port-A-Cath. She is on vancomycin scheduled for over 1 month. Yesterday, PICC line was placed along the right IJ. Shows personal history of multiple DVTs including of the left upper extremity. ROS: No reports of nausea and vomiting. No bowel movements. No fevers or c hills. No new chest pain. No productive sputum PHYSICAL EXAM: VITAL SIGNS: Reviewed CONSTITUTIONAL: Well developed and in no acute distress. EYES: Conjuctivae without sclera icterus. Extraocular movements grossly intact. HEAD, EARS, NOSE, THROAT: Moist buccal mucosa. Head is atraumatic, norm ocephalic. Hears conversational speech. No nasal drainage. Wears glasses. NECK: Supple. No thyroidomegaly. RESPIRATORY: Non-labored respirations and equal bilateral excursions. CARDIOVASCULAR: Palpable 2+ radial pulses. ABDOMEN: Soft. Non-tender. MUSCULOSKELETAL: No clubbing. No cyanosis. SKIN: Good skin turgor. Well perfused. NEUROLOGIC: Cranial nerves I through XII grossly intact. No focal or lateralizing signs. PSYCH: Appropriate affect. Alert and oriented to person, place and time. CLINCAL LABS: Reviewed. WBC normal. MICROBIOLOGY: Blood cultures negative. RADIOLOGY: Report reviewed. Successful placement of PICC line and right upper extremity. ASSESSMENT: 1. Infected Port-A-Cath PLAN: 1. Benefits and risks of Port-A-Cath removal were described. 2. Will need fluoroscopy for removal of Port-A-Cath as PICC line is a long same right side. Objective - Vital Signs Vital signs: Vital Signs Temp 98.6 F 10/28/21 08:15 Pulse 83 10/28/21 08:15 Resp 16 10/28/21 08:15 BP 142/78 10/28/21 08:15 Pulse Ox 99 10/28/21 08:15 Intake & Output 10/27/21 10/28/21 10/28/21 18:59 06:59 18:59 Intake Total 240 444 Balance 240 444 Intake: Oral 240 444 Other: Voiding Method Toilet # Voids 1 2 # Bowel Movements 2 - Labs CBC & Chem 7: 10/27/21 06:06 12/08/21 07:08 Labs: Abnormal Lab Results - Last 24 Hours (Table) 10/27/21 10/27/21 10/27/21 Range/Units 13:28 18:12 21:35 POC Glucose (mg/dL) 127 H 126 H 132 H (75-99) mg/dL 10/28/21 Range/Units 06:40 POC Glucose (mg/dL) 134 H (75-99) mg/dL Microbiology - Last 24 Hours (Table) 10/23/21 20:40 Blood Culture - Preliminary Blood No Growth after 96 hours 10/23/21 20:25 Blood Culture - Preliminary Blood No Growth after 96 hours Assessment and Plan (1) Bacteremia Current Visit: Yes Status: Acute Code(s): R78.81 - BACTEREMIA SNOMED Code(s): 2391776 (2) Port or reservoir infection Current Visit: Yes Status: Acute Code(s): T80.212A - LOCAL INFECTION DUE TO CENTRAL VENOUS CATHETER, INIT ENCNTR SNOMED Code(s): 315748798
[2021-10-28 11:58] LABS: Glucose,Whole Blood 130 mg/dL (75-99)
[2021-10-28] MEDS ORDERED: DEXAMETHASONE SOD PHOSPHATE 4 MG/ML 1 ML VIAL IVP ONE (12:12)
[2021-10-28] MEDS ORDERED: ONDANSETRON 4 MG/2 ML VIAL IVP ONE (12:13)
[2021-10-28] MEDS ORDERED: SCOPOLAMINE 1.5MG/72HR PATCH TRANSDERM ONE (12:13)
[2021-10-28] MEDS ORDERED: MIDAZOLAM 2 MG/2 ML VIAL ONE (12:14)
[2021-10-28] MEDS ORDERED: ROPIVACAINE 5 MG/ML 30 ML VIAL ONE (12:14)
[2021-10-28] MEDS ORDERED: DEXAMETHASONE SOD PHOSPHATE 4 MG/ML 1 ML VIAL ONE (12:14)
[2021-10-28] MEDS ORDERED: .fentaNYL (PF) 50 MCG/ML 2 ML AMP ONE (12:14)
[2021-10-28] MEDS ORDERED: PROPOFOL 10 MG/ML 20 ML VIAL IV ONE (12:14)
[2021-10-28] MEDS ORDERED: BUPIVACAIN-EPI 0.25%-1:200,000 30 ML VIAL SQ ONE ×2 (12:38→12:39)
--- NOTE | 2021-10-28 13:23 | FL ---
EXAMINATION TYPE: FL guidance operating room DATE OF EXAM: 10/28/2021 HISTORY: Fluoroscopy time 33 seconds of fluoroscopy provided. IMPRESSION: 1. Fluoroscopy time.
--- NOTE | 2021-10-28 13:30 | P.OP ---
Date of Procedure: 10/28/21 Description of Procedure: SURGEON: PAM COREY MD EGG GRADER: None. PREOPERATIVE DIAGNOSES: 1. Port-A-cath infection 2. Bacteremia 3. Mitochondrial syndrome 4. Bipolar disorder 5. Depressive disorder 6. Morbid obesity due to excess calories 7. Diabetes type 2, insulin-dependent 8. Hypothyroidism with Emily's disease 9. Chronic pain disorder 10. 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 History of deep venous thrombosis 12. History of pulmonary embolism 13. Multiple drug ALLERGIES 14. Chronic anticoagulant therapy 15. Hyperlipidemia 16. History of CVA 17. Idiopathic intracranial hypertension 18. Dysautonomia 19. Lupus 20. Pituitary microadenoma 21. Migraines with hemiplegia 22. Pernicious anemia 23. Polycystic ovarian syndrome 24. Bilateral neuropathy 25. Neurogenic bladder 26. History of MRSA 27. History of ESBL 28. Wheelchair bound 29. Fatty liver disease with hepatomegaly 30. Right PICC line upper extremity, new POSTOPERATIVE DIAGNOSES: 1. Port-A-cath infection 2. Bacteremia 3. Mitochondrial syndrome 4. Bipolar disorder 5. Depressive disorder 6. Morbid obesity due to excess calories 7. Diabetes type 2, insulin-dependent 8. Hypothyroidism with Emily's disease 9. Chronic pain disorder 10. 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 History of deep venous thrombosis 12. History of pulmonary embolism 13. Multiple drug ALLERGIES 14. Chronic anticoagulant therapy 15. Hyperlipidemia 16. History of CVA 17. Idiopathic intracranial hypertension 18. Dysautonomia 19. Lupus 20. Pituitary microadenoma 21. Migraines with hemiplegia 22. Pernicious anemia 23. Polycystic ovarian syndrome 24. Bilateral neuropathy 25. Neurogenic bladder 26. History of MRSA 27. History of ESBL 28. Wheelchair bound 29. Fatty liver disease with hepatomegaly 30. Right PICC line upper extremity, new PROCEDURES PERFORMED: 1. Fluoroscopic guidance for central venous access right internal jugular vein 33 seconds. 2. Removal of right internal jugular power port 6 Pashto. ANESTHESIA: IV sedation with local anesthetic. ESTIMATED BLOOD LOSS: 5 mL. SPECIMENS REMOVED: None. COMPLICATIONS: None. FINDINGS: 1. Moderately scarred port-a-cath along the right chest wall. 2. Undisturbed PICC line tubing along the right upper extremity. INDICATIONS: The patient is a 45-year-old female recently diagnosed with bacterima from a Port-A-Cath infection. She had a PICC line placed prior to port removal. She presents for removal of infected Port-A-Cath following negative blood cultres. Benefits and risks of surgical intervention were described including bleeding, infection, mechanical problems with her port. Informed consent was obtained. DESCRIPTION OF PROCEDURE: Patient was brought to the operating room, laid in supine position. After IV sedation the chest wall was prepped and draped in standard sterile fashion. Prior to incision, a timeout protocol was confirmed with surgical team regarding the patient's name including procedures to be performed. She was on scheduled Vancomycin. Additionally, SCDs for DVT prophylaxis was performed. Attention was brought to the port site, whereby local anesthetic was infiltrated into the skin for a field block. A fresh puncture site along the port was found. A #15 blade was used to incise along the previous cicatrix including electro- bovie cautery. Moderate adhesions were present and lysed around the Mediport. Sutures along the port and adapter were cut. Fluoroscopy was used to identify the tubing of the port as she had recent PICC line placement along the right upper extremity. The tubing was carefully removed without disturbance of her PICC line tubing. The port was extracted. Pressure for 2 minutes was placed along the internal jugular vein and subclavian vein. Hemostasis was checked along the pocket of the Port-A-Cath site. The wound was closed in layers using 3-0 Vicryl for the deep subcutaneous tissues followed by 4-0 Monocryl in a running subcuticular fashion. The skin was cleansed with dilute hydrogen peroxide. Optifoam was applied to the skin. At the end of the procedure needle, sponge and instrument counts were verified correct by the operating room surgical technician. The patient had tolerated the procedure well and was taken to postanesthesia care in stable condition.
--- NOTE | 2021-10-28 15:28 | PN ---
PROGRESS NOTE DATE OF SERVICE: 10/28/2021 REASON FOR FOLLOWUP: MediPort infection. INTERVAL HISTORY: The patient is afebrile. The patient is breathing comfortably. Denies having any chest pain or shortness of breath. No abdominal pain or diarrhea. PHYSICAL EXAMINATION: Her blood pressure is 138/89 with a pulse of 73, temperature 97.5. She is 93% on room air. General description is a middle-aged female lying in bed in no distress. Respiratory system: Unlabored breathing, clear to auscultation anteriorly. Heart S1, S2. Regular rate and rhythm. Abdomen soft, no tenderness. LABS: Blood culture remains to negative. DIAGNOSTIC IMPRESSION AND PLAN: Patient with a fever and leukocytosis on admission to hospital with a positive blood culture in the outpatient setting from a port infection. Plan at this time is to continue vancomycin, Pharmacy to dose, for another 10 days to finish a course of therapy, for which a PICC line has been placed. Close outpatient followup. MMODL / IJN: [id number] /
[2021-10-28 15:34] LABS: Glucose,Whole Blood 175 mg/dL (75-99)
[2021-10-28 15:45] VITALS: RESP 18; TEMP 97.9
[2021-10-28 15:46] VITALS: BP 179/97; PULSE 75
[2021-10-28] MEDS: INSULIN DETEMIR (LEVEMIR) 100 UNIT/ML SYR SQ SCH (17:04)
[2021-10-28] MEDS: CYANOCOBALAMIN 500 MCG TAB PO SCH (17:04)
[2021-10-28] MEDS: EZETIMIBE 10 MG TAB PO SCH (17:04)
[2021-10-28] MEDS: LORATADINE 10 MG TAB PO SCH (17:04)
[2021-10-28] MEDS: NON FORMULARY DRUG (Mirabegron [Myrbetriq] 25 MG Tab.Er.24h) PO SCH (17:05)
[2021-10-28] MEDS: polyethylene glycoL 3350 17 GM POWD.PACK PO SCH (17:05)
[2021-10-28] MEDS: NON FORMULARY DRUG (Fluticasone/Vilanterol [Breo Ellipta 100-25 Mcg Inhaler] 1 EACH Each) INHALATION SCH (17:07)
[2021-10-28 17:58] LABS: Glucose,Whole Blood 214 mg/dL (75-99)
[2021-10-28] MEDS: HYDROcodone/APAP 5-325MG 1 EACH TAB PO PRN (19:44)
[2021-10-29] MEDS ORDERED: VANCOMYCIN TROUGH DUE 1 EACH MISC MISCELLANE ONE (08:00)
--- NOTE | 2021-10-29 10:37 | P.DS ---
Providers Date of admission: 10/23/21 21:32 Expected date of discharge: 10/28/21 Attending physician: Adriana Douglas Consults: 10/23/21 21:24 Consult Physician Routine Consulting Provider: Juliane Llanes Consult Reason/Comments: Port Infection; staph positive blood culture Do you want consulting provider notified?: Yes 10/25/21 16:27 Consult Physician Routine Consulting Provider: Leslie Mendez Consult Reason/Comments: port removal Do you want consulting provider notified?: Yes, Notify in am Primary care physician: Julissa Montano Hospital Course: Final diagnosis Positive blood cultures and was sent by her physician to ER.. Source could be the Mediport possible sepsis, present on admission secondary to mediport infection History of CVA/TIA Diabetes mellitus Mitochondrial disorder~myotonic dystrophy Dysautonomia Idiopathic intracranial hypertension Emily's disease Lymphedema of the left arm History of pituitary microadenoma Gastroparesis Migraine headaches with hemiplegia History of pernicious anemia History of PCOD Bilateral neuropathy Recurrent UTIs Neurogenic bladder Stress incontinence History of DVT Full code Discharge disposition Patient is being discharged in a stable condition with guarded prognosis to home. Patient will follow-up with Dr. Montano upon discharge. Patient will continue on IV vancomycin and continue with Aj home infusion along with [facility] care. Total time taken is greater than 35 minutes. Hospital course Ms. Lam is a 41-year-old female with a past medical history of CVA/TIA, diabetes mellitus, DVT, dysautonomia, gastroparesis, orthostatic hypotension/syncope, pernicious anemia, obesity already, neuropathy of bilateral lower extremities, mitochondrial disorder causing myotonic dystrophy Presents to ER by the request of her physician due to positive blood cultures. Patient was recently discharged from hospital on 10/01/2021 with vancomycin for 2 weeks due to staph epidermidis bacteremia which was suspected from the MediPort which she used for IV hydration. Mediport was removed at the time and patient was discharged home with 2 weeks of IV antibiotics. Patient had recultured a week ago to see if the antibiotics were effective. The cultures were again positive for staph. Dr. Otoole wanted her admitted for IV antibiotics and port removal. Patient states that she has been fevers up to 102 F at home. Denies any nausea or vomiting. Patient also complaining of some tenderness over the left upper chest at the port site. Otherwise denied any chest pain. No cough or sputum production. No nausea vomiting or abdominal pain or diarrhea. On admission blood pressure 141/96 pulse 83 respiration 18 pulse ox 97% on room air and T-max is 99.8. Laboratory data showed WBC 13.1 hemoglobin 12.5 and platelets 477 neutrophils 9.6 BUN 11 creatinine 0.66 liver enzymes are not elevated UA negative for infection Coronavirus PCR not detected. 10/28/2021 Patient is seen in follow-up this morning no acute overnight issues. Patient is status post PICC line insertion and having Mediport removed by surgical services Dr. Baldwin today and will be discharged after postop clearance. [facility] and will follow-up with primary care provider. She is to continue on IV vancomycin for an additional 10 days and will need close outpatient follow-up. She is extremely anxious to go home today. Currently no reports of chest pain, shortness of breath, or palpitations. Patient is afebrile. No reports of nausea or vomiting and patient is tolerating diet. Guarded prognosis. PHYSICAL EXAMINATION: Patient is lying in the bed comfortably, no acute distress, awake alert and oriented.. HEENT: Normocephalic. Neck is supple. Pupils reactive. Nostrils clear. Oral cavity is moist. Neck reveals no JVD, carotid bruits, or thyromegaly. CHEST EXAMINATION: Trachea is central. Symmetrical expansion. Lung kebede clear to auscultation and percussion. CARDIAC: Normal S1, S2 with no gallops. No murmurs ABDOMEN: Soft. Mild epigastric tenderness noted on palpation. No guarding or rigidity.Bowel sounds normal. No organomegaly. No abdominal bruits. Extremities: reveal no edema. No clubbing or cyanosis Neurologically awake, alert, oriented x3 with well-coordinated movements. No focal deficits noted Skin: No rash or skin lesions. Psychiatric: Cooperative. Non-suicidal Musculoskeletal: No joint swelling or deformity. Normal range of motion. Please refer to medication reconciliation sheet for a list of medications. Patient Condition at Discharge: Fair Plan - Discharge Summary Discharge Rx Participant: Yes New Discharge Prescriptions: Continue Levothyroxine Sodium [Synthroid] 100 mcg PO DAILY modafiniL [Provigil] 200 mg PO DAILY tab Methenamine Hippurate 1 gm PO BID Mirabegron [Myrbetriq] 25 mg PO DAILY Insulin Aspart [NovoLOG Flexpen] See Protocol SQ AC-TID Fenofibrate [Lofibra] 160 mg PO HS tab Gabapentin [Neurontin] 400 mg PO TID cap Metoprolol Succinate (ER) [Toprol XL] 50 mg PO DAILY tab.er.24h Trimethoprim [Trimpex] 100 mg PO HS tab Rivaroxaban [Xarelto] 20 mg PO HS tab Acetaminophen Tab [Tylenol] 650 mg PO Q6H PRN PRN Reason: Fever And/ Or Pain Promethazine [Phenergan] 25 mg PO Q6H PRN PRN Reason: Nausea [place] Carbonate 900 mg PO HS Levothyroxine Sodium [Synthroid] 125 mcg PO MOTUWETH Albuterol Inhaler [Ventolin Hfa Inhaler] 2 puff INHALATION RT-Q4H PRN PRN Reason: Shortness Of Breath Clonidine Er 0.1mg 0.1 mg PO BID Dexlansoprazole [Dexilant] 60 mg PO DAILY Galcanezumab-Gnlm [Emgality Pen] 120 mg SQ Q30D Insulin Glargine,Hum.rec.anlog [Lantus Solostar Pen] 70 unit SQ DAILY Meloxicam [Mobic] 15 mg PO DAILY Rizatriptan Benzoate [Rizatriptan] 5 mg PO BID PRN PRN Reason: Migraine Headache Sodium Chloride 0.9% Iv 1,000 ml IV DAILY Brexpiprazole [Rexulti] 0.5 mg PO HS Baclofen [Lioresal] 20 mg PO Q12HR PRN PRN Reason: Pain hydrOXYzine pamoate [Vistaril] 100 mg PO BID PRN PRN Reason: Anxiety polyethylene glycoL 3350 [Miralax] 17 gm PO DAILY Loratadine 10 mg PO DAILY diphenhydrAMINE HCL [Benadryl] 25 capsule PO HS Butalb/APAP/Caff 50-325-40Mg [Fioricet 50-325-40] 1 tab PO Q8HR PRN PRN Reason: headache Ibuprofen [Motrin] 600 mg PO Q6HR PRN #30 tab PRN Reason: Pain Ezetimibe [Zetia] 10 mg PO DAILY Cyanocobalamin (Vitamin B-12) [Vitamin B-12] 1,000 mcg PO DAILY busPIRone HCL 30 mg PO BID Dextroamphetamine/Amphetamine [Adderall] 10 mg PO BID HYDROcodone/APAP 5-325MG [[place] 5-325] 1 tab PO Q6HR PRN 3 Days #12 tab PRN Reason: Pain Fluticasone/Vilanterol [Breo Ellipta 100-25 Mcg Inhaler] 1 puff INHALATION RT-DAILY Ondansetron Odt [Zofran ODT] 8 mg PO Q12HR PRN PRN Reason: Nausea Discharge Medication List Levothyroxine Sodium [Synthroid] 100 mcg PO DAILY 01/16/19 [History] modafiniL [Provigil] 200 mg PO DAILY tab 03/07/19 [Rx] Methenamine Hippurate 1 gm PO BID 07/12/19 [History] Insulin Aspart [NovoLOG Flexpen] See Protocol SQ AC-TID 10/08/19 [History] Mirabegron [Myrbetriq] 25 mg PO DAILY 10/08/19 [History] Fenofibrate [Lofibra] 160 mg PO HS tab 10/17/19 [Rx] Gabapentin [Neurontin] 400 mg PO TID cap 10/17/19 [Rx] Metoprolol Succinate (ER) [Toprol XL] 50 mg PO DAILY tab.er.24h 10/17/19 [Rx] Rivaroxaban [Xarelto] 20 mg PO HS tab 10/17/19 [Rx] Trimethoprim [Trimpex] 100 mg PO HS tab 10/17/19 [Rx] Acetaminophen Tab [Tylenol] 650 mg PO Q6H PRN 11/29/19 [History] [place] Carbonate 900 mg PO HS 11/29/19 [History] Promethazine [Phenergan] 25 mg PO Q6H PRN 11/30/19 [History] Levothyroxine Sodium [Synthroid] 125 mcg PO MOTUWETH 12/28/19 [History] Albuterol Inhaler [Ventolin Hfa Inhaler] 2 puff INHALATION RT-Q4H PRN 09/19/20 [History] Clonidine Er 0.1mg 0.1 mg PO BID 09/19/20 [History] Dexlansoprazole [Dexilant] 60 mg PO DAILY 09/19/20 [History] Galcanezumab-Gnlm [Emgality Pen] 120 mg SQ Q30D 09/19/20 [History] Insulin Glargine,Hum.rec.anlog [Lantus Solostar Pen] 70 unit SQ DAILY 09/19/20 [History] Meloxicam [Mobic] 15 mg PO DAILY 09/19/20 [History] Rizatriptan Benzoate [Rizatriptan] 5 mg PO BID PRN 09/19/20 [History] Sodium Chloride 0.9% Iv 1,000 ml IV DAILY 09/19/20 [History] Brexpiprazole [Rexulti] 0.5 mg PO HS 06/01/21 [History] Cyanocobalamin (Vitamin B-12) [Vitamin B-12] 1,000 mcg PO DAILY 06/01/21 [History] Dextroamphetamine/Amphetamine [Adderall] 10 mg PO BID 06/01/21 [History] Ezetimibe [Zetia] 10 mg PO DAILY 06/01/21 [History] busPIRone HCL 30 mg PO BID 06/01/21 [History] Baclofen [Lioresal] 20 mg PO Q12HR PRN 06/02/21 [History] hydrOXYzine pamoate [Vistaril] 100 mg PO BID PRN 06/02/21 [History] HYDROcodone/APAP 5-325MG [[place] 5-325] 1 tab PO Q6HR PRN 3 Days #12 tab 06/04/21 [Rx] Fluticasone/Vilanterol [Breo Ellipta 100-25 Mcg Inhaler] 1 puff INHALATION RT- DAILY 09/27/21 [History] Loratadine 10 mg PO DAILY 09/27/21 [History] Ondansetron Odt [Zofran ODT] 8 mg PO Q12HR PRN 09/27/21 [History] diphenhydrAMINE HCL [Benadryl] 25 capsule PO HS 09/27/21 [History] polyethylene glycoL 3350 [Miralax] 17 gm PO DAILY 09/27/21 [History] Butalb/APAP/Caff 50-325-40Mg [Fioricet 50-325-40] 1 tab PO Q8HR PRN 10/01/21 [History] Ibuprofen [Motrin] 600 mg PO Q6HR PRN #30 tab 10/01/21 [Rx] Follow up Appointment(s)/Referral(s): Julissa Montano III, MD [Primary Care Provider] - 1-2 days (Please make appointment when office is open) [facility] - Patient Instructions/Handouts: Peripherally Inserted Central Catheters and Midline Catheters (DC) Activity/Diet/Wound Care/Special Instructions: Activity Limited until follow-up follow up with primary care provider on discharge Continue with home care follow up with surgery in the outpatient setting ok to resume xarelto in 48 hours Home medications to be returned at discharge Discharge Disposition: HOME WITH HOME HEALTH SERVICES
== END 2021-10-28 20:13 | disposition home health service (06) | DRG 314 ==
LOC: EC 13:51 → 4SSUR 21:32 → 6PED 10-24 02:57
PROVIDERS: ADMIT Hospitalist; ATTEND Hospitalist
PROC: 05HB33Z Insertion of Infusion Device into Right Basilic Vein, Percutaneous Approach (ICD-10-PCS; 2021-10-27)
PROC: 02PYX3Z Removal of Infusion Device from Great Vessel, External Approach (ICD-10-PCS; principal; 2021-10-28 12:19)
DX: T80.211A Bloodstream infection due to central venous catheter, initial encounter (principal); A41.89 Other specified sepsis; E88.40 Mitochondrial metabolism disorder, unspecified; G81.90 Hemiplegia, unspecified affecting unspecified side; B95.7 Other staphylococcus as the cause of diseases classified elsewhere; D35.2 Benign neoplasm of pituitary gland; D51.0 Vitamin B12 deficiency anemia due to intrinsic factor deficiency; E06.3 Autoimmune thyroiditis; E11.43 Type 2 diabetes mellitus with diabetic autonomic (poly)neuropathy; E28.2 Polycystic ovarian syndrome; E66.01 Morbid (severe) obesity due to excess calories; K31.84 Gastroparesis; E78.5 Hyperlipidemia, unspecified; F31.9 Bipolar disorder, unspecified; F41.9 Anxiety disorder, unspecified; G43.909 Migraine, unspecified, not intractable, without status migrainosus; G71.11 Myotonic muscular dystrophy; G89.29 Other chronic pain; G90.1 Familial dysautonomia [Riley-Day]; G93.2 Benign intracranial hypertension; Z20.822 Contact with and (suspected) exposure to COVID-19; I89.0 Lymphedema, not elsewhere classified; K76.0 Fatty (change of) liver, not elsewhere classified; N31.9 Neuromuscular dysfunction of bladder, unspecified; N39.3 Stress incontinence (female) (male); Y84.8 Other medical procedures as the cause of abnormal reaction of the patient, or of later complication, without mention of misadventure at the time of the procedure; Z79.01 Long term (current) use of anticoagulants; Z79.1 Long term (current) use of non-steroidal anti-inflammatories (NSAID); Z79.2 Long term (current) use of antibiotics; Z79.4 Long term (current) use of insulin; Z79.890 Hormone replacement therapy; Z79.899 Other long term (current) drug therapy; Z82.49 Family history of ischemic heart disease and other diseases of the circulatory system; Z83.3 Family history of diabetes mellitus; Z86.14 Personal history of Methicillin resistant Staphylococcus aureus infection; Z86.19 Personal history of other infectious and parasitic diseases; Z86.711 Personal history of pulmonary embolism; Z86.718 Personal history of other venous thrombosis and embolism; Z86.73 Personal history of transient ischemic attack (TIA), and cerebral infarction without residual deficits; Z87.440 Personal history of urinary (tract) infections; Z88.9 Allergy status to unspecified drugs, medicaments and biological substances; Z99.3 Dependence on wheelchair; Z88.8 Allergy status to other drugs, medicaments and biological substances
CPT/HCPCS: 36415; 36573; 71046; 80048; 80053; 80202; 81003; 81025; 82565; 83036; 83605; 85025; 85610; 85730; 87040; 87070; 87075; 87077; 87186; 87205; 87635; 93005; 93970; 99285

== ENCOUNTER 2021-11-11 23:02 | Emergency (ER) | payer MEDICARE, OTHER ==
[2021-11-11 23:08] VITALS: TEMP 99.1
--- NOTE | 2021-11-12 01:14 | ED ---
Extremity Problem HPI - General Chief complaint: Extremity Problem,Nontraumatic Stated complaint: fever, picline site inflammation Time Seen by Provider: 11/12/21 00:20 Source: patient, RN notes reviewed, old records reviewed Mode of arrival: wheelchair Limitations: no limitations - History of Present Illness Initial comments: This is a 41-year-old female DF for evaluation today. Patient presents today for evaluation of right upper [place]y pain and swelling. Patient states she has concern right upper extremity cellulitis. Versus blood clot. Patient does have PICC line placed in her right upper extremity. She recently had a port infection Mediport infection. Reports been removed. Patient denying fevers is having pain with right upper extremity no other new complaints. Patient was sent by primary care for evaluation of right upper extremity MD Complaint: extremity pain, extremity swelling -: hour(s) Location: right, upper extremity History of Same: No -: Yes myalgia Radiation: proximal Severity scale (1-10): 5 Quality: aching Consistency: intermittent Improves with: nothing Worsens with: nothing Associated Symptoms: denies other symptoms - Related Data Home Medications Medication Instructions Recorded Confirmed Levothyroxine Sodium [Synthroid] 100 mcg PO DAILY 01/16/19 10/23/21 Methenamine Hippurate 1 gm PO BID 07/12/19 10/23/21 Insulin Aspart [NovoLOG Flexpen] See Protocol SQ AC-TID 10/08/19 10/23/21 Mirabegron [Myrbetriq] 25 mg PO DAILY 10/08/19 10/23/21 Acetaminophen Tab [Tylenol] 650 mg PO Q6H PRN 11/29/19 10/23/21 [place] Carbonate 900 mg PO HS 11/29/19 10/23/21 Promethazine [Phenergan] 25 mg PO Q6H PRN 11/30/19 10/23/21 Levothyroxine Sodium [Synthroid] 125 mcg PO MOTUWETH 12/28/19 10/23/21 Albuterol Inhaler [Ventolin Hfa 2 puff INHALATION RT-Q4H PRN 09/19/20 10/23/21 Inhaler] Clonidine Er 0.1mg 0.1 mg PO BID 09/19/20 10/23/21 Dexlansoprazole [Dexilant] 60 mg PO DAILY 09/19/20 10/23/21 Galcanezumab-Gnlm [Emgality Pen] 120 mg SQ Q30D 09/19/20 10/23/21 Insulin Glargine,Hum.rec.anlog 70 unit SQ DAILY 09/19/20 10/23/21 [Lantus Solostar Pen] Meloxicam [Mobic] 15 mg PO DAILY 09/19/20 10/23/21 Rizatriptan Benzoate [Rizatriptan] 5 mg PO BID PRN 09/19/20 10/23/21 Sodium Chloride 0.9% Iv 1,000 ml IV DAILY 09/19/20 10/23/21 Brexpiprazole [Rexulti] 0.5 mg PO HS 06/01/21 10/23/21 Cyanocobalamin (Vitamin B-12) 1,000 mcg PO DAILY 06/01/21 10/23/21 [Vitamin B-12] Dextroamphetamine/Amphetamine 10 mg PO BID 06/01/21 10/23/21 [Adderall] Ezetimibe [Zetia] 10 mg PO DAILY 06/01/21 10/23/21 busPIRone HCL 30 mg PO BID 06/01/21 10/23/21 Baclofen [Lioresal] 20 mg PO Q12HR PRN 06/02/21 10/23/21 hydrOXYzine pamoate [Vistaril] 100 mg PO BID PRN 06/02/21 10/23/21 Fluticasone/Vilanterol [Breo 1 puff INHALATION RT-DAILY 09/27/21 10/23/21 Ellipta 100-25 Mcg Inhaler] Loratadine 10 mg PO DAILY 09/27/21 10/23/21 Ondansetron Odt [Zofran ODT] 8 mg PO Q12HR PRN 09/27/21 10/23/21 diphenhydrAMINE HCL [Benadryl] 25 capsule PO HS 09/27/21 10/23/21 polyethylene glycoL 3350 [Miralax] 17 gm PO DAILY 09/27/21 10/23/21 Butalb/APAP/Caff 50-325-40Mg 1 tab PO Q8HR PRN 10/01/21 10/23/21 [Fioricet 50-325-40] Previous Rx's Medication Instructions Recorded modafiniL [Provigil] 200 mg PO DAILY tab 04/17/19 Fenofibrate [Lofibra] 160 mg PO HS tab 10/17/19 Gabapentin [Neurontin] 400 mg PO TID cap 10/17/19 Metoprolol Succinate (ER) [Toprol 50 mg PO DAILY tab.er.24h 10/17/19 XL] Rivaroxaban [Xarelto] 20 mg PO HS tab 10/17/19 Trimethoprim [Trimpex] 100 mg PO HS tab 10/17/19 HYDROcodone/APAP 5-325MG [[place] 1 tab PO Q6HR PRN 3 Days #12 tab 06/04/21 5-325] Ibuprofen [Motrin] 600 mg PO Q6HR PRN #30 tab 10/01/21 Allergies Allergy/AdvReac Type Severity Reaction Status Date / Time peanut oil Allergy Severe Nausea & Verified 11/11/21 23:03 Vomiting,itching barium sulfate Allergy Anaphylaxis Verified 11/11/21 23:03 doxepin [Doxepin] Allergy Anaphylaxis Verified 11/11/21 23:03 ephedrine Allergy Chest Verified 11/11/21 23:03 Pain/tachycardia ertapenem [From Invanz] Allergy Rash/Hives Verified 11/11/21 23:03 peanut Allergy Nausea & Verified 11/11/21 23:03 Vomiting/itching pseudoephedrine Allergy Chest Pain Verified 11/11/21 23:03 sumatriptan [From Imitrex] Allergy Hallucinati Verified 11/11/21 23:03 ons doxycycline AdvReac Nausea & Verified 11/11/21 23:03 Vomiting & Diarrhea pseudoephedrine HCl AdvReac chest Verified 11/11/21 23:03 [From Sudafed] pain/tachycardia sulfamethoxazole AdvReac Nausea & Verified 11/11/21 23:03 [From Bactrim] Vomiting Review of Systems ROS Statement: Those systems with pertinent positive or pertinent negative responses have been documented in the HPI. ROS Other: All systems not noted in ROS Statement are negative. Past Medical History Past Medical History: CVA/TIA, Diabetes Mellitus, Deep Vein Thrombosis (DVT), Neurologic Disorder, Syncope, Thyroid Disorder Additional Past Medical History / Comment(s): port a cath rt chest , STROKE LIKE EPISODE D/T MITOCHRONDIAL DISEASE HAD WORK UP DONE AT [facility]. Dysautonomia, idiopathic intracranial HTN, lupus/ per pt last LUPUS ANTICOAGULANTS antiphosolipid test 06/10 neg., ana maria's disease, lymphedema Lt arm d/t DVTs,avoid use of lt arm for b/p,iv,blood draws, v-tach, pituitary microadenoma. patent foramen ovale, narcolepsy, gastropareis, HX orthostatic hypotension/syncope, migraines with hemiplegia, pernicious anemia, polycystic ovarian syndrome, neuropathy bilateral legs/feet - mild, uti's. neurogenic bladder, stress incontinence, uses wheelchair, able to transfer and walk few steps History of Any Multi-Drug Resistant Organisms: ESBL, MRSA Date of last positivie culture/infection: 03/09/17 MRSA/ 05/17/18 ESBL MDRO Source:: MRSA LEFT ARM,/ESBL URINE ECOLI Past Surgical History: Cholecystectomy, Uterine Ablation Additional Past Surgical History / Comment(s): colonscopy/egd, angie, PORT-A -CATH INSERTION, Past Anesthesia/Blood Transfusion Reactions: Previous Problems w/ Anesthesia Additional Past Anesthesia/Blood Transfusion Reaction / Comment(s): patient states "It takes a lot of anesthesia for my body to react". Pt has received blood in past without reaction. pt has met with anesthesia-will bring in a summary page for anesthesia r/t mitochondrial disease Past Psychological History: Bipolar, Depression Smoking Status: Never smoker Past Alcohol Use History: None Reported Past Drug Use History: None Reported - Past Family History Brother(s) Family Medical History: Diabetes Mellitus, Hyperlipidemia, Hypertension Additional Family Medical History / Comment(s): Patient states she has 1 brother with no major medical problems. Father Family Medical History: Diabetes Mellitus, Hyperlipidemia, Hypertension Additional Family Medical History / Comment(s): DAD IS 70 YEARS OLD. Patient states she does not have any contact with her father and does not know his medical history. Mother Family Medical History: CVA/TIA, Diabetes Mellitus, Deep Vein Thrombosis (DVT) Additional Family Medical History / Comment(s): antiphospholipid antibody syndrome lupus dementia General Exam Limitations: no limitations General appearance: alert, in no apparent distress Head exam: Present: atraumatic, normocephalic, normal inspection Eye exam: Present: normal appearance, PERRL, EOMI. Absent: scleral icterus, conjunctival injection, periorbital swelling ENT exam: Present: normal exam, mucous membranes moist Neck exam: Present: normal inspection. Absent: tenderness, meningismus, lymphadenopathy Respiratory exam: Present: normal lung sounds bilaterally. Absent: respiratory distress, wheezes, rales, rhonchi, stridor Cardiovascular Exam: Present: regular rate, normal rhythm, normal heart sounds. Absent: systolic murmur, diastolic murmur, rubs, gallop, clicks GI/Abdominal exam: Present: soft, normal bowel sounds. Absent: distended, tenderness, guarding, rebound, rigid Extremities exam: Present: normal inspection, full ROM, normal capillary refill. Absent: tenderness, pedal edema, joint swelling, calf tenderness Back exam: Present: normal inspection Neurological exam: Present: alert, oriented X3, CN II-XII intact Psychiatric exam: Present: normal affect, normal mood Skin exam: Present: warm, dry, intact, normal color. Absent: rash Course Vital Signs 11/11/21 23:05 Temperature 99.1 F Pulse Rate 105 H Respiratory 20 Rate Blood Pressure 177/116 O2 Sat by Pulse 99 Oximetry - Reevaluation(s) Reevaluation #1: 11/12/21 01:13 Medical record is reviewed Reevaluation #2: 11/12/21 01:13 Patient is in no acute distress Reevaluation #3: 11/12/21 01:43 Patient informed results and questions answered Medical Decision Making - Medical Decision Making 41 female DF for evaluation of right upper extremity pain and swelling. No DVT on ultrasound. - Radiology Data Radiology results: report reviewed (Ultrasound right upper extremity does shownegative for DVT), image reviewed Disposition Clinical Impression: History of DVT (deep vein thrombosis), Right arm pain Disposition: HOME SELF-CARE Condition: Good Instructions (If sedation given, give patient instructions): Arm Pain (ED), Peripherally Inserted Central Catheters and Midline Catheters (DC) Is patient prescribed a controlled substance at d/c from ED?: No Referrals: Julissa Montano III, MD [Primary Care Provider] - 1-2 days
--- NOTE | 2021-11-12 01:17 | US ---
EXAMINATION TYPE: US venous doppler duplex UE RT DATE OF EXAM: 11/12/2021 COMPARISON: US CLINICAL HISTORY: dvt. Swelling and pain near PICC line. SIDE PERFORMED: Right. Patient has PICC line in place. Limited visibility at area of PICC line bandag e. Right Arm: Limited due to body habitus and PICC line bandage. No evidence of DVT in veins imaged at t his time. Difficult to visualize prox- mid subclavian vein. IMPRESSION: No evidence of deep vein thrombosis in the right arm.
[2021-11-12 01:52] VITALS: BP 131/84; PULSE 79; RESP 15
== END 2021-11-12 01:59 | disposition home or self-care (01) ==
LOC: EC 23:02
DX: M79.601 Pain in right arm (principal); Z86.718 Personal history of other venous thrombosis and embolism; E11.43 Type 2 diabetes mellitus with diabetic autonomic (poly)neuropathy; K31.84 Gastroparesis; F31.9 Bipolar disorder, unspecified; Z79.4 Long term (current) use of insulin; Z79.890 Hormone replacement therapy; Z79.51 Long term (current) use of inhaled steroids; Z79.899 Other long term (current) drug therapy
CPT/HCPCS: 99284

== ENCOUNTER 2022-02-10 12:04 | Day surgery (SDC) | payer MEDICARE, OTHER ==
[2022-02-05 16:05] VITALS: BMI 43.2
[~2022-02-10 12:04] MED LIST changes: -ACETAMINOPHEN TAB 500 MG TAB PO PRN; -DEXAMETHASONE SOD PHOSPHATE 4 MG/ML 1 ML VIAL IV ONE; -HEPARIN SODIUM,PORCINE/PF 5,000 UNIT/0.5 ML SYRINGE SQ PRN; -HYDROmorphone 0.5 MG/0.5 ML SYRINGE IVP PRN; -INDOCYANINE GREEN 25 MG VIAL IV PRN; +LACTATED RINGERS 1,000 ML IV SCH; -ONDANSETRON 4 MG/2 ML VIAL IVP ONE; +Pre Op ABX Message 1 EACH MISC MISCELLANE ONE; -ceFAZolin 3 GM in SODIUM CHLORIDE 0.9% 100 ML IVPB PRN
[2022-02-10 12:52] VITALS: RESP 16; TEMP 97
[2022-02-10] MEDS ORDERED: ONDANSETRON 4 MG/2 ML VIAL ONE (12:54)
[2022-02-10] MEDS ORDERED: METOCLOPRAMIDE 5 MG/ML 2 ML VIAL ONE (12:57)
[2022-02-10] MEDS ORDERED: DEXAMETHASONE SOD PHOSPHATE 4 MG/ML 1 ML VIAL IVP ONE (13:00)
[2022-02-10] MEDS ORDERED: ONDANSETRON 4 MG/2 ML VIAL IVP ONE (13:00)
[2022-02-10] MEDS ORDERED: METOCLOPRAMIDE 5 MG/ML 2 ML VIAL IVP ONE (13:00)
[2022-02-10] MEDS ORDERED: PROPOFOL 10 MG/ML 20 ML VIAL IV ONE (13:54)
[2022-02-10] MEDS ORDERED: MIDAZOLAM 2 MG/2 ML VIAL ONE (13:54)
[2022-02-10] MEDS ORDERED: SODIUM CHLORIDE 0.9% 100 ML with ceFAZolin 2,000 MG IV ONE ×2 (13:59)
--- NOTE | 2022-02-10 14:07 | P.HPIHPCON ---
History of Present Illness H&P Date: 02/10/22 Patient is a 41-year-old female who is reliant on continuous IV access for infusions due to her comorbid conditions. In the past she had a right-sided port placement initially had a fracture and was replaced to the same area. She surgically had infection of that area was removed and she was been utilizing a PICC line ever since. She was referred to me for possible replacement of her port. She denies any fevers, chills, nausea, vomiting or issues otherwise. She denies any issues at this site of the previous port or further issues with infection. Consent for Procedure: I have explained the operation/procedure to the patient, including the risks, benefits, side effects, alternative therapies (including not receiving the proposed treatment or service), the likelihood of the patient achieving his/her goals, and potential recuperation problems for the procedure/sedation/analgesia, as well as any blood products, if indicated. I also explained to the patient the risks, benefits and side effects of the alternatives, as well as the risks related to not receiving the proposed procedure, care, treatment, or services. Past Medical History Past Medical History: CVA/TIA, Diabetes Mellitus, Deep Vein Thrombosis (DVT), Neurologic Disorder, Syncope, Thyroid Disorder Additional Past Medical History / Comment(s): port a cath rt chest , STROKE LIKE EPISODE D/T MITOCHRONDIAL DISEASE HAD WORK UP DONE AT [facility]. Dysautonomia, idiopathic intracranial HTN, lupus/ per pt last LUPUS ANTICOAGULANTS antiphosolipid test 06/10 neg., ana maria's disease, lymphedema Lt arm d/t DVTs,avoid use of lt arm for b/p,iv,blood draws, v-tach, pituitary microadenoma. patent foramen ovale, narcolepsy, gastropareis, HX orthostatic hypotension/syncope, migraines with hemiplegia, pernicious anemia, polycystic ovarian syndrome, neuropathy bilateral legs/feet - mild, uti's. neurogenic bladder, stress incontinence, uses wheelchair, able to transfer and walk few steps History of Any Multi-Drug Resistant Organisms: ESBL, MRSA Date of last positivie culture/infection: 03/09/17 MRSA/ 05/17/18 ESBL MDRO Source:: MRSA LEFT ARM,/ESBL URINE ECOLI Past Surgical History: Cholecystectomy, Uterine Ablation Additional Past Surgical History / Comment(s): colonscopy/egd, angie, PORT-A -CATH INSERTION, Past Anesthesia/Blood Transfusion Reactions: Previous Problems w/ Anesthesia Additional Past Anesthesia/Blood Transfusion Reaction / Comment(s): patient states "It takes a lot of anesthesia for my body to react". Pt has received blood in past without reaction. pt has met with anesthesia-will bring in a summary page for anesthesia r/t mitochondrial disease Past Alcohol Use History: None Reported - Past Family History Brother(s) Family Medical History: Diabetes Mellitus, Hyperlipidemia, Hypertension Additional Family Medical History / Comment(s): Patient states she has 1 brother with no major medical problems. Father Family Medical History: Diabetes Mellitus, Hyperlipidemia, Hypertension Additional Family Medical History / Comment(s): DAD IS 70 YEARS OLD. Patient states she does not have any contact with her father and does not know his medical history. Mother Family Medical History: CVA/TIA, Diabetes Mellitus, Deep Vein Thrombosis (DVT) Additional Family Medical History / Comment(s): antiphospholipid antibody syndrome, lupus, dementia. Medications and Allergies Home Medications Medication Instructions Recorded Confirmed Type Levothyroxine Sodium [Synthroid] 100 mcg PO DAILY 01/16/19 02/10/22 History modafiniL [Provigil] 200 mg PO DAILY tab 03/07/19 02/10/22 Rx Methenamine Hippurate 1 gm PO BID 07/12/19 02/10/22 History Insulin Aspart [NovoLOG Flexpen] See Protocol SQ AC-TID 10/08/19 02/10/22 History Mirabegron [Myrbetriq] 25 mg PO DAILY 10/08/19 02/10/22 History Fenofibrate [Lofibra] 160 mg PO HS tab 10/17/19 02/10/22 Rx Gabapentin [Neurontin] 400 mg PO TID cap 10/17/19 02/10/22 Rx Rivaroxaban [Xarelto] 20 mg PO HS tab 10/17/19 02/10/22 Rx Trimethoprim [Trimpex] 100 mg PO HS tab 10/17/19 02/10/22 Rx Acetaminophen Tab [Tylenol] 650 mg PO Q6H PRN 11/29/19 02/10/22 History [place] Carbonate 300 mg PO TID 11/29/19 02/10/22 History Promethazine [Phenergan] 25 mg PO Q6H PRN 11/30/19 02/10/22 History Levothyroxine Sodium [Synthroid] 125 mcg PO MOTUWETH 12/28/19 02/10/22 History Albuterol Inhaler [Ventolin Hfa 2 puff INHALATION RT-Q4H PRN 09/19/20 02/10/22 History Inhaler] Clonidine Er 0.1mg 0.1 mg PO BID 09/19/20 02/10/22 History Dexlansoprazole [Dexilant] 60 mg PO DAILY 09/19/20 02/10/22 History Galcanezumab-Gnlm [Emgality Pen] 120 mg SQ Q30D 09/19/20 02/10/22 History Insulin Glargine,Hum.rec.anlog 56 unit SQ DAILY 09/19/20 02/10/22 History [Lantus Solostar Pen] Meloxicam [Mobic] 15 mg PO DAILY 09/19/20 02/10/22 History Rizatriptan Benzoate [Rizatriptan] 5 mg PO BID PRN 09/19/20 02/10/22 History Sodium Chloride 0.9% Iv 1,000 ml IV DAILY 09/19/20 02/10/22 History Brexpiprazole [Rexulti] 0.5 mg PO HS 06/01/21 02/10/22 History Cyanocobalamin (Vitamin B-12) 1,000 mcg PO DAILY 06/01/21 02/10/22 History [Vitamin B-12] Ezetimibe [Zetia] 10 mg PO DAILY 06/01/21 02/10/22 History busPIRone HCL 30 mg PO BID 06/01/21 02/10/22 History Baclofen [Lioresal] 20 mg PO TID 06/02/21 02/10/22 History hydrOXYzine pamoate [Vistaril] 50 mg PO BID PRN 06/02/21 02/10/22 History HYDROcodone/APAP 5-325MG [[place] 1 tab PO Q6HR PRN 3 Days #12 tab 06/04/21 02/10/22 Rx 5-325] Fluticasone/Vilanterol [Breo 1 puff INHALATION RT-DAILY 09/27/21 02/10/22 History Ellipta 100-25 Mcg Inhaler] Ondansetron Odt [Zofran ODT] 8 mg PO Q8H PRN 09/27/21 02/10/22 History diphenhydrAMINE HCL [Benadryl] 25 capsule PO HS 09/27/21 02/10/22 History polyethylene glycoL 3350 [Miralax] 17 gm PO DAILY 09/27/21 02/10/22 History Butalb/APAP/Caff 50-325-40Mg 1 tab PO Q8HR PRN 10/01/21 02/10/22 History [Fioricet 50-325-40] Metoprolol Succinate (ER) [Toprol 100 mg PO DAILY 02/05/22 02/10/22 History XL] Allergies Allergy/AdvReac Type Severity Reaction Status Date / Time peanut oil Allergy Severe Nausea & Verified 02/10/22 12:47 Vomiting,itching barium sulfate Allergy Anaphylaxis Verified 02/10/22 12:47 doxepin [Doxepin] Allergy Anaphylaxis Verified 02/10/22 12:47 ephedrine Allergy Chest Verified 02/10/22 12:47 Pain/tachycardia ertapenem [From Invanz] Allergy Rash/Hives Verified 02/10/22 12:47 peanut Allergy Nausea & Verified 02/10/22 12:47 Vomiting/itching pseudoephedrine Allergy Chest Pain Verified 02/10/22 12:47 sumatriptan [From Imitrex] Allergy Hallucinati Verified 02/10/22 12:47 ons doxycycline AdvReac Nausea & Verified 02/10/22 12:47 Vomiting & Diarrhea pseudoephedrine HCl AdvReac chest Verified 02/10/22 12:47 [From Sudafed] pain/tachycardia sulfamethoxazole AdvReac Nausea & Verified 02/10/22 12:47 [From Bactrim] Vomiting Surgical - Exam Vital Signs Temp Pulse Resp BP Pulse Ox 97.0 F L 77 16 133/79 97 02/10/22 12:51 02/10/22 12:51 02/10/22 12:51 02/10/22 12:51 02/10/22 12:51 Gen a pleasant cooperative female in no acute distress. HEENT is normal cephalic, atraumatic, extraocular motion intact. Heart appears regular. Lungs are clear. Abdomen is obese, soft, nontender. Extremities with no clubbing, cyanosis or edema. Scarring from previous port. Assessment and Plan Assessment: Need for IV access Mitochondrial disorder History of port infection Plan: Discuss going forward with replacement of the port. We'll plan to place on the right side if possible, if unable to utilize a side will place a left-sided port. Questions were answered. Patient seemingly understands risks and benefits is willing to proceed.
[2022-02-10] MEDS ORDERED: LIDOCAINE 1% INJ 10MG/ML (20 ML MDV) SQ ONE ×2 (14:27)
[2022-02-10] MEDS ORDERED: HEPARIN SODIUM 1,000 UN/ML (10ML VL) IV ONE ×2 (14:36→14:51)
--- NOTE | 2022-02-10 15:15 | P.OP ---
Date of Procedure: 02/10/22 Description of Procedure: DATE OF PROCEDURE: 02/10/2022 PREOPERATIVE DIAGNOSIS: Need for IV access, mitochondrial dysfunction PROCEDURE: 1. Ultrasound-guided right internal jugular vein access. 2. Placement of a 6-[place] subcutaneous port with fluoroscopic assistance. PROCEDURE: The patient was brought to the operative suite placed in supine position. The bilateral necks were prepped and draped in usual sterile fashion. A preprocedure timeout was performed, all parties were in agreement. Using ultrasound the right internal jugular was identified. The site overlying the vein was anesthetized with 1% lidocaine plain and an access needle was used to gain access to the internal jugular vein with return of dark venous, nonpulsatile blood. The wire was advanced without resistance and found to be in good resting position in the inferior vena cava. The chest wall was anesthetized with 1% lidocaine plain. Is carried down through subcutaneous tissues and a pocket was made allowed to make room for a port. It was sized appropriately. Attention was then turned towards the tunnel. the previously flushed catheter was tunneled through the anticipated location. Using fluoroscopic assistance the tear-away sheath was placed over the wire. The catheter was measured and cut to size. The catheter was placed in the tear- away sheath was removed in standard fashion. The catheter showed good positioning was final resting place in the cavoatrial junction. The catheter aspirated and flushed freely through the port. It was then placed in subcutaneous pocket and anchored with 3-0 Prolene. It was again accessed through the skin and aspirated and flushed freely. Heparinized saline was then placed. The White needle was left in place on the anterior chest wall. The incision was then reapproximated with interrupted sutures of 3-0 Vicryl in subcutaneous tissues. The deep dermal layers were reapproximated with running 4-0 Monocryl in subcuticular fashion.. Dressings were placed. The patient was allowed to awaken from anesthesia and transferred to recovery in stable c ondition having tolerated the procedure well. A post procedure chest x-ray is pending Plan - Discharge Summary Discharge Rx Participant: Yes New Discharge Prescriptions: No Action Levothyroxine Sodium [Synthroid] 100 mcg PO DAILY modafiniL [Provigil] 200 mg PO DAILY tab Methenamine Hippurate 1 gm PO BID Mirabegron [Myrbetriq] 25 mg PO DAILY Insulin Aspart [NovoLOG Flexpen] See Protocol SQ AC-TID Fenofibrate [Lofibra] 160 mg PO HS tab Gabapentin [Neurontin] 400 mg PO TID cap Trimethoprim [Trimpex] 100 mg PO HS tab Rivaroxaban [Xarelto] 20 mg PO HS tab Acetaminophen Tab [Tylenol] 650 mg PO Q6H PRN PRN Reason: Fever And/ Or Pain Promethazine [Phenergan] 25 mg PO Q6H PRN PRN Reason: Nausea [place] Carbonate 300 mg PO TID Levothyroxine Sodium [Synthroid] 125 mcg PO MOTUWETH Albuterol Inhaler [Ventolin Hfa Inhaler] 2 puff INHALATION RT-Q4H PRN PRN Reason: Shortness Of Breath Clonidine Er 0.1mg 0.1 mg PO BID Dexlansoprazole [Dexilant] 60 mg PO DAILY Galcanezumab-Gnlm [Emgality Pen] 120 mg SQ Q30D Insulin Glargine,Hum.rec.anlog [Lantus Solostar Pen] 56 unit SQ DAILY Meloxicam [Mobic] 15 mg PO DAILY Rizatriptan Benzoate [Rizatriptan] 5 mg PO BID PRN PRN Reason: Migraine Headache Sodium Chloride 0.9% Iv 1,000 ml IV DAILY Brexpiprazole [Rexulti] 0.5 mg PO HS Baclofen [Lioresal] 20 mg PO TID hydrOXYzine pamoate [Vistaril] 50 mg PO BID PRN PRN Reason: Anxiety polyethylene glycoL 3350 [Miralax] 17 gm PO DAILY diphenhydrAMINE HCL [Benadryl] 25 capsule PO HS Butalb/APAP/Caff 50-325-40Mg [Fioricet 50-325-40] 1 tab PO Q8HR PRN PRN Reason: headache Metoprolol Succinate (ER) [Toprol XL] 100 mg PO DAILY Ezetimibe [Zetia] 10 mg PO DAILY Cyanocobalamin (Vitamin B-12) [Vitamin B-12] 1,000 mcg PO DAILY busPIRone HCL 30 mg PO BID HYDROcodone/APAP 5-325MG [[place] 5-325] 1 tab PO Q6HR PRN 3 Days #12 tab PRN Reason: Pain Fluticasone/Vilanterol [Breo Ellipta 100-25 Mcg Inhaler] 1 puff INHALATION RT-DAILY Ondansetron Odt [Zofran ODT] 8 mg PO Q8H PRN PRN Reason: Nausea Discharge Medication List Levothyroxine Sodium [Synthroid] 100 mcg PO DAILY 01/16/19 [History] modafiniL [Provigil] 200 mg PO DAILY tab 03/07/19 [Rx] Methenamine Hippurate 1 gm PO BID 07/12/19 [History] Insulin Aspart [NovoLOG Flexpen] See Protocol SQ AC-TID 10/08/19 [History] Mirabegron [Myrbetriq] 25 mg PO DAILY 10/08/19 [History] Fenofibrate [Lofibra] 160 mg PO HS tab 10/17/19 [Rx] Gabapentin [Neurontin] 400 mg PO TID cap 10/17/19 [Rx] Rivaroxaban [Xarelto] 20 mg PO HS tab 10/17/19 [Rx] Trimethoprim [Trimpex] 100 mg PO HS tab 10/17/19 [Rx] Acetaminophen Tab [Tylenol] 650 mg PO Q6H PRN 11/29/19 [History] [place] Carbonate 300 mg PO TID 11/29/19 [History] Promethazine [Phenergan] 25 mg PO Q6H PRN 11/30/19 [History] Levothyroxine Sodium [Synthroid] 125 mcg PO MOTUWETH 12/28/19 [History] Albuterol Inhaler [Ventolin Hfa Inhaler] 2 puff INHALATION RT-Q4H PRN 09/19/20 [History] Clonidine Er 0.1mg 0.1 mg PO BID 09/19/20 [History] Dexlansoprazole [Dexilant] 60 mg PO DAILY 09/19/20 [History] Galcanezumab-Gnlm [Emgality Pen] 120 mg SQ Q30D 09/19/20 [History] Insulin Glargine,Hum.rec.anlog [Lantus Solostar Pen] 56 unit SQ DAILY 09/19/20 [History] Meloxicam [Mobic] 15 mg PO DAILY 09/19/20 [History] Rizatriptan Benzoate [Rizatriptan] 5 mg PO BID PRN 09/19/20 [History] Sodium Chloride 0.9% Iv 1,000 ml IV DAILY 09/19/20 [History] Brexpiprazole [Rexulti] 0.5 mg PO HS 06/01/21 [History] Cyanocobalamin (Vitamin B-12) [Vitamin B-12] 1,000 mcg PO DAILY 06/01/21 [History] Ezetimibe [Zetia] 10 mg PO DAILY 06/01/21 [History] busPIRone HCL 30 mg PO BID 06/01/21 [History] Baclofen [Lioresal] 20 mg PO TID 06/02/21 [History] hydrOXYzine pamoate [Vistaril] 50 mg PO BID PRN 06/02/21 [History] HYDROcodone/APAP 5-325MG [[place] 5-325] 1 tab PO Q6HR PRN 3 Days #12 tab 06/04/21 [Rx] Fluticasone/Vilanterol [Breo Ellipta 100-25 Mcg Inhaler] 1 puff INHALATION RT- DAILY 09/27/21 [History] Ondansetron Odt [Zofran ODT] 8 mg PO Q8H PRN 09/27/21 [History] diphenhydrAMINE HCL [Benadryl] 25 capsule PO HS 09/27/21 [History] polyethylene glycoL 3350 [Miralax] 17 gm PO DAILY 09/27/21 [History] Butalb/APAP/Caff 50-325-40Mg [Fioricet 50-325-40] 1 tab PO Q8HR PRN 10/01/21 [History] Metoprolol Succinate (ER) [Toprol XL] 100 mg PO DAILY 02/05/22 [History]
[2022-02-10 15:20] VITALS: BP 138/84; PULSE 75
--- NOTE | 2022-02-10 15:38 | FL ---
EXAMINATION TYPE: FL guided central line placemt HISTORY: Fluoroscopy time Impression: 1. Fluoroscopy support provided to the referring physician. 17 seconds provided.
--- NOTE | 2022-02-10 15:52 | XR ---
EXAMINATION TYPE: XR chest 1V portable DATE OF EXAM: 02/10/2022 COMPARISON: 10/26/2021 HISTORY: Mediport catheter placement TECHNIQUE: Single frontal view of the chest is obtained. FINDINGS: There is no focal air space opacity, pleural effusion, or pneumothorax seen. The cardiac silhouette size is within normal limits. The osseous structures are intact. Mediport seen with the tip overlying the SVC. Right-sided PICC line noted with the tip overlying the SVC. IMPRESSION: 1. Mediport catheter seen with the tip overlying the SVC. No sizable pneumothorax.
== END 2022-02-10 16:27 | disposition home or self-care (01) ==
LOC: OR 12:04
PROVIDERS: ATTEND Surgery
DX: Z45.2 Encounter for adjustment and management of vascular access device (principal); Z86.73 Personal history of transient ischemic attack (TIA), and cerebral infarction without residual deficits; E11.9 Type 2 diabetes mellitus without complications; Z86.718 Personal history of other venous thrombosis and embolism; E07.9 Disorder of thyroid, unspecified; E88.40 Mitochondrial metabolism disorder, unspecified; G90.1 Familial dysautonomia [Riley-Day]; E06.3 Autoimmune thyroiditis; I47.2 Ventricular tachycardia; G43.909 Migraine, unspecified, not intractable, without status migrainosus; D51.0 Vitamin B12 deficiency anemia due to intrinsic factor deficiency; E28.2 Polycystic ovarian syndrome; G62.9 Polyneuropathy, unspecified; N31.9 Neuromuscular dysfunction of bladder, unspecified; Z86.14 Personal history of Methicillin resistant Staphylococcus aureus infection; Z90.49 Acquired absence of other specified parts of digestive tract; Z83.3 Family history of diabetes mellitus; Z82.49 Family history of ischemic heart disease and other diseases of the circulatory system; Z83.438 Family history of other disorder of lipoprotein metabolism and other lipidemia; Z79.890 Hormone replacement therapy; Z79.4 Long term (current) use of insulin; Z79.899 Other long term (current) drug therapy; Z88.2 Allergy status to sulfonamides; Z88.1 Allergy status to other antibiotic agents; J45.909 Unspecified asthma, uncomplicated; Z99.3 Dependence on wheelchair; E66.01 Morbid (severe) obesity due to excess calories; Z68.41 Body mass index [BMI] 40.0-44.9, adult
CPT/HCPCS: 81025; 77001; 71045; 36561; C1788; J2250; J1100; J2765; J2405; J0690; J2001; J1644; J1642; J2704

== ENCOUNTER → 2022-03-10 | Outpatient (CLI) | payer MEDICARE, OTHER ==
--- NOTE | 2022-03-10 14:41 | CONS ---
CONSULTATION DATE OF SERVICE: 03/10/2022 This 41-year-old lady has been evaluated in [facility] for her multiple sleep problems. HISTORY OF PRESENT ILLNESS/SLEEP-WAKE EVALUATION: I saw this patient 13 years ago. We treat her for narcolepsy. At the present time, the patient's sleep schedule is from around 11 p.m. until 11 a.m. She does have significant problems with falling asleep. Currently she is on treatment with trazodone to help her to fall asleep, but it does not work for her. She continues to have difficulties falling asleep. At night she wakes up multiple times and several times she has to go to the restroom. Also she has symptoms of restless legs and movements of her arms and head during the night. She grinds her teeth and has episodes of awakenings with dry mouth, panic attack, heartburn. Recent home sleep apnea test was negative for sleep apnea, but significant oxygen desaturation was documented. In the morning the patient wakes up tired, falling asleep during the day. She has problems with memory, concentration, anxiety. Positive history of hypnagogic hallucinations. Positive history of cataplexy in the past. Spencer Sleepiness Scale is in very high range at 18. PAST MEDICAL HISTORY: Positive for lupus erythematosus, mitochondrial disease, stroke, deep venous thrombosis, Emily thyroiditis, pituitary microadenoma, polycystic ovary syndrome, osteoarthritis, migraine, idiopathic intracranial hypertension, occipital neuralgia, heart, hyperlipidemia, pernicious anemia, GERD, vitamin D deficiency, bipolar disorder, anxiety, PTSD, suspected ADHD. Also asthma, diabetes mellitus. MEDICATIONS: 1. Provigil 200 mg in the morning. 2. Focalin 5 mg in the morning. 3. Buspirone 30 mg twice a day. 4. [place] 300 mg 3 times a day. 5. Clonidine 0.1 mg twice a day. 6. Xarelto 20 mg in the evening. 7. Toprol XL 100 mg in the morning. 8. Ezetimibe 10 mg in the evening. 9. Myrbetriq 25 mg once a day. 10. 100 mg afternoon. 11.Gabapentin 400 mg 3 times a day. 12.Hydrocodone 5/325 mg every 12 hours. 13.Fioricet every 8 to 12 hours. 14. triptan 5 mg on p.r.n. basis. 15.Levothyroxine 100 mcg once a day. 16.Zofran 8 mg every 6 to 8 hours if necessary. 17.Meclizine 25 mg if necessary. 18.Lantus 60 units in the morning. 19.NovoLog. 20.Ozempic. 21.Xyzal 5 mg twice a day. 22.Flonase. 23.Breo. 24.Albuterol. REVIEW OF SYSTEMS: Multiple awakenings from sleep, sleepiness during the day. No fevers. No double vision. No recent chest pain. No shortness of breath. No abdominal pain. No bleeding episodes. No blood in the urine. No seizure episodes. FAMILY HISTORY: Hypertension, heart problems, stroke, mental illness, thyroid problems, diabetes. PHYSICAL EXAMINATION: GENERAL: Pleasant lady without distress. Patient is in a wheelchair. VITAL SIGNS: BP 116/80, HR 83, RR 18, height 5 feet 5 inches, weight 277.0, body mass index 46.0, temperature 96.5, oxygen saturation at room air 96%. HEENT: PERRLA, EOMI, evaluation of oropharynx showed tongue protrudes midline. Extremely low position of soft palate; Mallampati IV. NECK: Supple, no JVD. Thyroid is not palpable. Neck measures 19-3/4 inches in circumference. LUNGS: Clear to percussion and to auscultation. Good air exchange. No wheezing or rhonchi. HEART: S1, S2 regular. No murmurs, gallops, or rubs. ABDOMEN: Soft and nontender. Bowel sounds are present. No organomegaly appreciated. EXTREMITIES: No clubbing or cyanosis. LUMBER LOADER: Awake, alert, and oriented X3. Cranial nerves 2 to 7 intact. There is no fasciculation or atrophy. noted. No focal deficits observed. IMPRESSION: 1. Snoring, multiple awakenings from sleep, extremely low position of soft palate, Mallampati IV, wide neck, 19-3/4 inches in circumference, sleepiness; possible obstructive sleep apnea-hypopnea syndrome. 2. Obesity; body mass index 46.0. 3. Narcolepsy 1 confirmed previously by multiple sleep latency test with 3 sleep-onset REM periods. 4. Lupus erythematosus. 5. Lupus anticoagulant. 6. 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 7. Diabetes mellitus. 8. History of deep vein thrombosis and stroke. 9. Emily thyroiditis, hypothyroidism. 10.Pituitary microadenoma. 11.Polycystic ovary syndrome. 12.Migraines. 13.Osteoarthritis. 14.History of idiopathic intracranial hypertension. 15. PFO in heart. 16.History of pernicious anemia. 17.Gastroesophageal reflux disease. 18.Vitamin D deficiency. 19.Bipolar disorder. 20.Anxiety. 21.History of post-traumatic stress disorder. PLAN: 1. Polysomnography for evaluation of patient's breathing during sleep at the present time. 2. Following plan after reviewing results of sleep study. 3. Sleep hygiene with regular time in bed for 7-1/2 hours. 4. Discuss with the patient some psychological techniques for insomnia, including paradoxical intention. 5. Extreme precautions related to driving. 6. Losing weight. Thank you very much for referring this patient for consultation. Sincerely, Mateo Schilling MD, PhD, FAASM Diplomat of [employer] Sleep Medicine Board of [employer] Doctor Of Radiology of [facility] [place] MMODL / JB: [id number] /
== END ==
LOC: SLEEP 13:08
PROVIDERS: ATTEND Internal Medicine
DX: G47.419 Narcolepsy without cataplexy (principal); E66.9 Obesity, unspecified; Z68.42 Body mass index [BMI] 45.0-49.9, adult; D35.2 Benign neoplasm of pituitary gland; L93.0 Discoid lupus erythematosus; E06.3 Autoimmune thyroiditis; E11.9 Type 2 diabetes mellitus without complications; E28.2 Polycystic ovarian syndrome; E55.9 Vitamin D deficiency, unspecified; E88.40 Mitochondrial metabolism disorder, unspecified; F31.9 Bipolar disorder, unspecified; F41.9 Anxiety disorder, unspecified; G43.909 Migraine, unspecified, not intractable, without status migrainosus; G89.29 Other chronic pain; K21.9 Gastro-esophageal reflux disease without esophagitis; M19.90 Unspecified osteoarthritis, unspecified site; Q21.1 Atrial septal defect; Z79.01 Long term (current) use of anticoagulants; D68.62 Lupus anticoagulant syndrome; Z86.59 Personal history of other mental and behavioral disorders; Z86.2 Personal history of diseases of the blood and blood-forming organs and certain disorders involving the immune mechanism; Z86.69 Personal history of other diseases of the nervous system and sense organs; Z86.718 Personal history of other venous thrombosis and embolism; E78.5 Hyperlipidemia, unspecified; J45.909 Unspecified asthma, uncomplicated; Z79.4 Long term (current) use of insulin; Z79.890 Hormone replacement therapy; Z79.51 Long term (current) use of inhaled steroids; Z91.010 Allergy to peanuts; Z88.1 Allergy status to other antibiotic agents; Z88.2 Allergy status to sulfonamides; Z88.8 Allergy status to other drugs, medicaments and biological substances; Z86.73 Personal history of transient ischemic attack (TIA), and cerebral infarction without residual deficits
CPT/HCPCS: 99211

== ENCOUNTER → 2022-03-29 | Outpatient (CLI) | payer MEDICARE, OTHER ==
--- NOTE | 2022-03-29 14:01 | US ---
EXAMINATION TYPE: US venous doppler duplex UE LT DATE OF EXAM: 03/29/2022 COMPARISON: Prior bilateral upper extremity venous ultrasound October 26, 2021 CLINICAL HISTORY: R22.32 SWELLING, MASS AND LUMP,M79.602 PAIN LT ARM. edema and pain left arm. histor y of lymphedema left arm. history of DVT left arm 20 years ago. patient on Xarelto SIDE PERFORMED: left Left Arm: technical limitations due to patient's body habitus. no evidence of DVT as visualized Grayscale, color doppler, spectral doppler imaging performed of the deep veins of the left upper extr emity. There is normal flow, compressibility and vascular waveforms. IMPRESSION: Suboptimal study without acute deep or superficial venous thrombosis in the left upper ex tremity identified on this study.
== END | disposition home or self-care (01) ==
LOC: RADUSWWP 13:00
PROVIDERS: ATTEND Family Medicine
DX: R22.32 Localized swelling, mass and lump, left upper limb (principal); M79.602 Pain in left arm; Z86.718 Personal history of other venous thrombosis and embolism; Z79.01 Long term (current) use of anticoagulants

== ENCOUNTER 2022-04-27 10:54 | Day surgery (SDC) | payer MEDICARE, OTHER ==
[2022-04-26 12:22] VITALS: BMI 44.9
[2022-04-27 12:22] VITALS: PULSE 91; RESP 16; TEMP 99.5
[2022-04-27 12:39] LABS: Basophils # (A) 0.1 k/uL (0-0.2); Basophils % (A) 1 %; Eosinophils # (A) 0.4 k/uL (0-0.7); Eosinophils % (A) 3 %; HCT 39.8 % (34.0-46.0); HGB 12.9 gm/dL (11.4-16.0); Lymphocytes # (A) 1.5 k/uL (1.0-4.8); Lymphocytes % (A) 13 %; MCH 28.9 pg (25.0-35.0); MCHC 32.3 g/dL (31.0-37.0); MCV 89.4 fL (80.0-100.0); Monocytes # (A) 0.5 k/uL (0-1.0); Monocytes % (A) 4 %; Neutrophils # (A) 9.2 k/uL (1.3-7.7); Neutrophils % (A) 78 %; Platelet Count 427 k/uL (150-450); RBC 4.45 m/uL (3.80-5.40); RDW 14.8 % (11.5-15.5); WBC 11.9 k/uL (3.8-10.6)
[2022-04-27 12:48] LABS: African American GFR (CKD) >90 (>60 ml/min/1.73 sqM); Anion Gap 10 mmol/L; Blood Urea Nitrogen 10 mg/dL (7-17); Carbon Dioxide 22 mmol/L (22-30); Chloride 105 mmol/L (98-107); Non-African American GFR(CKD) >90 (>60 ml/min/1.73 sqM); Potassium 4.8 mmol/L (3.5-5.1); Sodium 137 mmol/L (137-145)
--- NOTE | 2022-04-27 13:44 | IR ---
PICC LINE PLACEMENT: HISTORY: Infection requiring long-term antibiotic therapy PROCEDURE: Ultrasound and fluoroscopic guidance of PICC line placement. COMPLICATIONS: None ANESTHESIA: 1. 1% Lidocaine locally. FINDINGS/TECHNIQUE: The procedure was explained to the patient. The risks, complications, benefits and alternatives were discussed and any questions were answered. Informed consent was obtained. The patient was placed supine on the fluoroscopic table and prepped and draped in the usual sterile fash ion. Utilizing a 21 gauge needle and sonographic and fluoroscopic guidance, access in the right bas ilic vein was achieved and there is placement of a 0.018 guidewire. The vein is patent. A 4-F sheat h was placed over the guidewire. The guidewire and dilator were removed and a 4-F. PICC line was craig ebony through the sheath with the tip at the level of the SVC. The sheath was removed, the catheter wa s flushed and sutured into position. The patient was stable throughout the procedure and remained st able upon discharge from the Department of Radiology. The vein puncture was patent under ultrasound. A esteves scale image was obtained to document patency of the vein punctured. All elements of the maximal barrier technique were utilized. FLUOROSCOPY TIME: 1.3 minutes of fluoroscopy and one images submitted. IMPRESSION: Successful PICC line placement under ultrasound and fluoroscopic guidance.
[2022-04-27 13:46] VITALS: BP 122/89
== END 2022-04-27 13:25 | disposition home or self-care (01) ==
LOC: CATHCVL 10:54
PROVIDERS: ATTEND Radiology Diagnostic Radiology
DX: E88.40 Mitochondrial metabolism disorder, unspecified (principal); I95.1 Orthostatic hypotension
CPT/HCPCS: 36573; 80051; 82565; 84520; 85025; 81025; C1751; C1769

== ENCOUNTER 2022-05-17 09:57 | Day surgery (SDC) | payer MEDICARE, OTHER ==
[2022-05-17 10:31] VITALS: BP 117/75; PULSE 92; RESP 16; TEMP 99.4
--- NOTE | 2022-05-17 11:13 | IR ---
Fluoroscopic portogram([facility]). HISTORY: Device malfunction. The patient presented to the CVL with a White needle within the port. Preliminary fluoroscopy demonst rated the catheter to be intact. I catheter widely patent with no evidence of obstruction or extra vasation. IMPRESSION: 1. Normal exam.
== END 2022-05-17 11:06 | disposition home or self-care (01) ==
LOC: CATHCVL 09:57
PROVIDERS: ATTEND Radiology Diagnostic Radiology
DX: T82.594A Other mechanical complication of infusion catheter, initial encounter (principal)
CPT/HCPCS: 36598; J1642

== ENCOUNTER 2022-06-23 17:31 | Inpatient (IN) | payer MEDICARE, OTHER ==
[2022-06-23] MEDS ORDERED: VANCOMYCIN IV PER PHARMACY 1 EACH MISC MISCELLANE PRN (19:32)
[2022-06-23] MEDS ORDERED: NALOXONE 0.4 MG/ML 1 ML VIAL IV PRN (19:34)
[2022-06-23] MEDS ORDERED: ACETAMINOPHEN TAB 325 MG TAB PO PRN (19:41)
--- NOTE | 2022-06-23 19:59 | ED ---
General Adult HPI - General Chief complaint: Recheck/Abnormal Lab/Rx Stated complaint: infected port Time Seen by Provider: 06/23/22 19:28 Source: patient, RN notes reviewed, old records reviewed Mode of arrival: ambulatory Limitations: no limitations - History of Present Illness Initial comments: 41-year-old female presenting with positive blood culture which was obtained as an outpatient. Patient has a Mediport right chest wall which she uses for IV fluid and IV Zofran. She had a culture performed by her home care nurse which turned positive for gram-positive cocci. She does report low-grade fevers. - Related Data Home Medications Medication Instructions Recorded Confirmed Levothyroxine Sodium [Synthroid] 100 mcg PO DAILY 01/16/19 05/17/22 Methenamine Hippurate 1 gm PO BID 07/12/19 05/17/22 Mirabegron [Myrbetriq] 25 mg PO DAILY 10/08/19 05/17/22 Promethazine [Phenergan] 25 mg PO Q6H PRN 11/30/19 05/17/22 Levothyroxine Sodium [Synthroid] 125 mcg PO MOTUWETH 12/28/19 05/17/22 Albuterol Inhaler [Ventolin Hfa 2 puff INHALATION RT-Q2H PRN 09/19/20 05/14/22 Inhaler] Dexlansoprazole [Dexilant] 60 mg PO DAILY 09/19/20 05/17/22 Galcanezumab-Gnlm [Emgality Pen] 120 mg SQ Q30D 09/19/20 05/17/22 Meloxicam [Mobic] 15 mg PO DAILY 09/19/20 05/17/22 Rizatriptan Benzoate [Rizatriptan] 5 mg PO BID PRN 09/19/20 05/17/22 Sodium Chloride 0.9% Iv 1,000 ml IV DAILY 09/19/20 05/17/22 Brexpiprazole [Rexulti] 0.5 mg PO HS 06/01/21 05/17/22 Cyanocobalamin (Vitamin B-12) 1,000 mcg PO DAILY 06/01/21 05/17/22 [Vitamin B-12] Ezetimibe [Zetia] 10 mg PO HS 06/01/21 05/17/22 busPIRone HCL [Buspar] 30 mg PO BID 06/01/21 05/17/22 Baclofen [Lioresal] 20 mg PO QID 06/02/21 05/17/22 Fluticasone/Vilanterol [Breo 1 puff INHALATION RT-DAILY 09/27/21 05/17/22 Ellipta 100-25 Mcg Inhaler] Ondansetron Odt [Zofran ODT] 8 mg IV. Q8H PRN 09/27/21 05/17/22 polyethylene glycoL 3350 [Miralax] 17 gm PO DAILY 09/27/21 05/17/22 Metoprolol Succinate (ER) [Toprol 100 mg PO DAILY 02/05/22 05/17/22 XL] Dexmethylphenidate HCl [Focalin] 5 mg PO DAILY 04/26/22 05/17/22 Fioricet With Codeine 1 tab PO Q8HR PRN 04/26/22 05/17/22 Fluticasone Nasal [place] [Flonase 2 spray EA NOSTRIL DAILY 04/26/22 05/17/22 Nasal [place]] HYDROcodone/APAP 5-325MG [[place] 1 - 2 tab PO Q12HR PRN 04/26/22 05/17/22 5-325] Insulin Aspart (Niacinamide) 0 units SQ DIRECTED 04/26/22 05/17/22 [Fiasp 100 Unit/ml Flextouch Pen] Insulin Glargine,Hum.rec.anlog 40 unit SQ BID 04/26/22 05/17/22 [Lantus Solostar Pen] Levocetirizine Dihydrochloride 5 mg PO BID 04/26/22 05/17/22 [Xyzal] [place] Carbonate [[place] 300 mg PO TID 04/26/22 05/17/22 Carbonate ER] Metoclopramide [Reglan] 10 mg PO QID 04/26/22 05/17/22 Prochlorperazine Suppository 25 mg RECTAL Q8HR PRN 04/26/22 05/17/22 [Compazine] Semaglutide [Ozempic] 0.5 mg SQ FR 04/26/22 05/17/22 cloNIDine HCL [Catapres] 0.2 mg PO BID 04/26/22 05/17/22 traZODone HCL 200 mg PO HS 04/26/22 05/17/22 Previous Rx's Medication Instructions Recorded modafiniL [Provigil] 200 mg PO DAILY tab 03/07/19 Fenofibrate [Lofibra] 160 mg PO HS tab 10/17/19 Gabapentin [Neurontin] 400 mg PO TID cap 10/17/19 Rivaroxaban [Xarelto] 20 mg PO HS tab 10/17/19 Trimethoprim [Trimpex] 100 mg PO HS tab 10/17/19 Allergies Allergy/AdvReac Type Severity Reaction Status Date / Time peanut oil Allergy Severe Nausea & Verified 06/23/22 18:12 Vomiting,itching barium sulfate Allergy Anaphylaxis Verified 06/23/22 18:12 doxepin [Doxepin] Allergy Anaphylaxis Verified 06/23/22 18:12 ephedrine Allergy Chest Verified 06/23/22 18:12 Pain/tachycardia ertapenem [From Invanz] Allergy Rash/Hives- Verified 06/23/22 18:12 like a chemical burn peanut Allergy Nausea & Verified 06/23/22 18:12 Vomiting/itching pseudoephedrine Allergy Chest Pain Verified 06/23/22 18:12 Sulfa (Sulfonamide Allergy Nausea & Verified 06/23/22 18:12 Antibiotics) Vomiting, DEHYDRATION sumatriptan [From Imitrex] Allergy affects Verified 06/23/22 18:12 vision-unable to see for hrs. doxycycline AdvReac Nausea & Verified 06/23/22 18:12 Vomiting & Diarrhea pseudoephedrine HCl AdvReac chest Verified 06/23/22 18:12 [From Sudafed] pain/tachycardia sulfamethoxazole AdvReac Nausea & Verified 06/23/22 18:12 [From Bactrim] Vomiting Review of Systems ROS Statement: Those systems with pertinent positive or pertinent negative responses have been documented in the HPI. ROS Other: All systems not noted in ROS Statement are negative. Past Medical History Past Medical History: Asthma, CVA/TIA, Diabetes Mellitus, Deep Vein Thrombosis (DVT), GERD/Reflux, Neurologic Disorder, Sleep Apnea/CPAP/BIPAP, Syncope, Thyroid Disorder Additional Past Medical History / Comment(s): Patient states recent low grade fevers thinks may be realted to blood clot in port causing infection. States port is not working right. Mitochondrial metabolism disorder. Port a cath right chest-currently not working. Stroke like episode d/t mitochondrial disease, Dysautonomia, idiopathic intracranial HTN, Lupus, Emily's Thyroiditis. Lymphedema left arm d/t DVTs, avoid use of left arm for BP, IV, blood draws. Vtach, pituitary microadenoma, patent foramen ovale, narcolepsy, gastropareis, hx orthostatic hypotension/syncope, migraines with hemiplegia, pernicious anemia, polycystic ovarian syndrome, neuropathy bilateral legs/feet/arms, neurogenic bladder with UTI's, stress incontinence, uses wheelchair, able to transfer and walk few steps, sleep apnea-has not received machine yet, lupus anticoagulation syndrome. History of Any Multi-Drug Resistant Organisms: ESBL, MRSA Date of last positivie culture/infection: 03/09/17 MRSA/ 05/17/18 ESBL MDRO Source:: MRSA LEFT ARM,/ESBL URINE ECOLI Past Surgical History: Cholecystectomy, Uterine Ablation Additional Past Surgical History / Comment(s): Colonscopy/EGD, GERSON, PORT-A -CATH INSERTION X3. Past Anesthesia/Blood Transfusion Reactions: Previous Problems w/ Anesthesia, Motion Sickness Additional Past Anesthesia/Blood Transfusion Reaction / Comment(s): Patient states difficult to sedate. Past Psychological History: Anxiety, Bipolar, Depression Smoking Status: Never smoker Past Alcohol Use History: None Reported Past Drug Use History: None Reported - Past Family History Brother(s) Family Medical History: Diabetes Mellitus, Hyperlipidemia, Hypertension Additional Family Medical History / Comment(s): Patient states she has 1 brother with no major medical problems. Father History Unknown: Yes Family Medical History: Diabetes Mellitus, Hyperlipidemia, Hypertension Mother Family Medical History: CVA/TIA, Diabetes Mellitus, Deep Vein Thrombosis (DVT) Additional Family Medical History / Comment(s): Antiphospholipid antibody syn drome, Lupus, dementia. General Exam Limitations: no limitations General appearance: alert, in no apparent distress Head exam: Present: atraumatic, normocephalic Eye exam: Present: normal appearance, PERRL ENT exam: Present: normal exam, normal oropharynx Neck exam: Present: normal inspection. Absent: tenderness Respiratory exam: Present: normal lung sounds bilaterally. Absent: respiratory distress Cardiovascular Exam: Present: regular rate, normal rhythm GI/Abdominal exam: Present: soft. Absent: distended, tenderness, guarding Extremities exam: Present: normal inspection, normal capillary refill Neurological exam: Present: alert, oriented X3 Psychiatric exam: Present: normal affect, normal mood Skin exam: Present: warm, dry, intact Course Vital Signs 06/23/22 18:10 Temperature 98.9 F Pulse Rate 66 Respiratory 16 Rate Blood Pressure 143/92 O2 Sat by Pulse 96 Oximetry Medical Decision Making - Medical Decision Making 41-year-old female with positive blood cultures. Patient started on vancomycin. Cultures will be repeated. Patient will be admitted for IV antibiotics. Case discussed with Pia haney for [facility] hospitalists. Infectious disease will be placed on consult. Laboratory studies are pending. Disposition Clinical Impression: Bacteremia Disposition: ADMITTED IP TO THIS HOSP Condition: Stable Is patient prescribed a controlled substance at d/c from ED?: No Referrals: Julissa Montano III, MD [Primary Care Provider] - 1-2 days Time of Disposition: 19:59
[2022-06-23] MEDS ORDERED: VANCOMYCIN 1,750 MG in SODIUM CHLORIDE 0.9% 500 ML 500 ML IVPB ONE (20:00)
[2022-06-23] MEDS: SODIUM CHLORIDE 0.9% 1,000 ML IV SCH (20:42)
[2022-06-23 20:51] LABS: ALT 25 U/L (4-34); AST 26 U/L (14-36); African American GFR (CKD) >90 (>60 ml/min/1.73 sqM); Albumin 4.8 g/dL (3.5-5.0); Alkaline Phosphatase 71 U/L (38-126); Anion Gap 12 mmol/L; Blood Urea Nitrogen 13 mg/dL (7-17); Calcium 10.6 mg/dL (8.4-10.2); Carbon Dioxide 19 mmol/L (22-30); Chloride 107 mmol/L (98-107); Glucose 135 mg/dL (74-99); Non-African American GFR(CKD) >90 (>60 ml/min/1.73 sqM); Potassium 4.7 mmol/L (3.5-5.1); Sodium 138 mmol/L (137-145); Total Bilirubin 0.2 mg/dL (0.2-1.3); Total Protein 7.6 g/dL (6.3-8.2)
[2022-06-23 21:30] LABS: Basophils # (A) 0.1 k/uL (0-0.2); Basophils % (A) 1 %; Eosinophils # (A) 0.2 k/uL (0-0.7); Eosinophils % (A) 2 %; HGB 12.6 gm/dL (11.4-16.0); Lymphocytes # (A) 1.6 k/uL (1.0-4.8); Lymphocytes % (A) 13 %; MCH 28.6 pg (25.0-35.0); MCHC 31.6 g/dL (31.0-37.0); MCV 90.4 fL (80.0-100.0); Mean Platelet Volume 7.1; Monocytes # (A) 0.6 k/uL (0-1.0); Monocytes % (A) 5 %; Neutrophils # (A) 9.7 k/uL (1.3-7.7); Neutrophils % (A) 79 %; Platelet Count 488 k/uL (150-450); RBC 4.42 m/uL (3.80-5.40); RDW 13.9 % (11.5-15.5); WBC 12.3 k/uL (3.8-10.6)
[2022-06-23] MEDS ORDERED: HYDROcodone/APAP 5-325MG 1 EACH TAB PO PRN (23:08)
[2022-06-23 23:32] LABS: Glucose,Whole Blood 137 mg/dL (70-110)
[2022-06-24] MEDS: VANCOMYCIN 1,750 MG in SODIUM CHLORIDE 0.9% 500 ML 500 ML IVPB SCH ×2 (06:33→17:27)
[2022-06-24 07:11] LABS: Glucose,Whole Blood 120 mg/dL (70-110)
[2022-06-24] MEDS: SODIUM CHLORIDE 0.9% 1,000 ML IV SCH ×2 (08:10→15:12)
[2022-06-24 11:38] LABS: Glucose,Whole Blood 125 mg/dL (70-110)
[2022-06-24] MEDS ORDERED: BUTA/APAP/CAF/COD 50-325-40-30 CAP PO PRN (13:12)
[2022-06-24] MEDS ORDERED: KETOCONAZOLE 2% SHAMPOO 1 APPLIC/ML TOPICAL PRN (13:12)
[2022-06-24] MEDS ORDERED: HEPARIN SODIUM,PORCINE 5,000 UNIT/ML 1 ML VIAL IV PRN (13:12)
[2022-06-24] MEDS ORDERED: DICYCLOMINE 20 MG TAB PO PRN (13:12)
[2022-06-24] MEDS ORDERED: SUCRALFATE 1 GM TAB PO PRN (13:12)
[2022-06-24] MEDS ORDERED: LIDOCAINE 4% TOPICAL PRN (13:12)
[2022-06-24] MEDS ORDERED: PHENAZOPYRIDINE 100 MG TAB PO PRN (13:12)
[2022-06-24] MEDS ORDERED: ALBUTEROL NEBULIZED 2.5 MG/3 ML INHALATION PRN (13:12)
[2022-06-24] MEDS ORDERED: PROMETHAZINE 25 MG TAB PO PRN (13:12)
[2022-06-24] MEDS ORDERED: RIZATRIPTAN BENZOATE 5 MG PO PRN (13:12)
[2022-06-24] MEDS ORDERED: METOCLOPRAMIDE 10 MG TAB PO PRN (13:12)
[2022-06-24] MEDS ORDERED: tiZANidine 4 MG TAB PO PRN (13:12)
[2022-06-24] MEDS ORDERED: PROCHLORPERAZINE SUPPOSITORY 25 MG SUPP RECTAL PRN (13:12)
[2022-06-24] MEDS ORDERED: MECLIZINE 25 MG TAB PO PRN (13:12)
[2022-06-24] MEDS ORDERED: ONDANSETRON ODT 8 MG TAB.RAPDIS PO PRN (13:12)
[2022-06-24] MEDS ORDERED: NON FORMULARY DRUG (Galcanezumab-Gnlm [Emgality Pen] 120 MG/ML Pen.Injctr) SQ SCH (13:15)
--- NOTE | 2022-06-24 15:18 | P.GSCN ---
History of Present Illness Consult date: 06/24/22 Reason for Consult: possible infected port Requesting physician: Ariadne Enciso History of present illness: This 41-year-old femalewith past medical history of diabetes mellitus, DVT, GERD, thyroid disorder, mitochondrial metabolism disorder, Emily's thyroiditis, lupus, gastroparesis, obesity, and obstructive sleep apneawho presented to the emergency department for bacteremia. Patient has a right IJ port that was placed 02/10/[address] Kumar for IV fluids, Odalys who states she was accessing the port and noticed some pus from when removing the needle. States there was also some tenderness. States she thinks she may have had a low-grade temp of 100.4. She notified her PCP who had her home care nurse come out and do a blood culture. Patient received a call stating that she had a positive blood culture come to the emergency department for admission. Vascular surgery was consulted due to possible bacteremia, source of possible port. Patient currently denies any fevers or chills. Denies any pain at the site. There is no further drainage. She's been afebrile here in the hospital. Infectious diseases on consult, awaiting the recommendations. She denies any shortness of breath, chest pain, nausea or vomiting. Review of Systems A 14 point review systems was completed all pertinent positives and negatives as stated in the HPI. Past Medical History Past Medical History: Asthma, CVA/TIA, Diabetes Mellitus, Deep Vein Thrombosis (DVT), GERD/Reflux, Neurologic Disorder, Sleep Apnea/CPAP/BIPAP, Syncope, Thyroid Disorder Additional Past Medical History / Comment(s): Patient states recent low grade fevers thinkgabriela may be realted to blood clot in port causing infection. States port is not working right. Mitochondrial metabolism disorder. Port a cath right chest-currently not working. Stroke like episode d/t mitochondrial disease, Dysautonomia, idiopathic intracranial HTN, Lupus, Emily's Thyroiditis. Lymphedema left arm d/t DVTs, avoid use of left arm for BP, IV, blood draws. Vtach, pituitary microadenoma, patent foramen ovale, narcolepsy, gastropareis, hx orthostatic hypotension/syncope, migraines with hemiplegia, pernicious anemia, polycystic ovarian syndrome, neuropathy bilateral legs/feet/arms, neurogenic bladder with UTI's, stress incontinence, uses wheelchair, able to transfer and walk few steps, sleep apnea-has not received machine yet, lupus anticoagulation syndrome. History of Any Multi-Drug Resistant Organisms: ESBL, MRSA Year Discovered:: 03/09/17 MRSA/ 05/17/18 ESBL MDRO Source:: MRSA LEFT ARM,/ESBL URINE ECOLI Past Surgical History: Cholecystectomy, Uterine Ablation Additional Past Surgical History / Comment(s): Colonscopy/EGD, GERSON, PORT-A -CATH INSERTION X3. Past Anesthesia/Blood Transfusion Reactions: Previous Problems w/ Anesthesia, Motion Sickness Additional Past Anesthesia/Blood Transfusion Reaction / Comm: Patient states difficult to sedate. Past Psychological History: Anxiety, Bipolar, Depression Additional Psychological History / Comment(s): . Smoking Status: Never smoker Past Alcohol Use History: None Reported Additional Past Alcohol Use History / Comment(s): . Past Drug Use History: None Reported - Past Family History Brother(s) Family Medical History: Diabetes Mellitus, Hyperlipidemia, Hypertension Additional Family Medical History / Comment(s): Patient states she has 1 brother with no major medical problems. Father History Unknown: Yes Family Medical History: Diabetes Mellitus, Hyperlipidemia, Hypertension Mother Family Medical History: CVA/TIA, Diabetes Mellitus, Deep Vein Thrombosis (DVT) Additional Family Medical History / Comment(s): Antiphospholipid antibody syndrome, Lupus, dementia. Medications and Allergies Home Medications Medication Instructions Recorded Confirmed Type Levothyroxine Sodium [Synthroid] 100 mcg PO DAILY 01/16/19 06/23/22 History Methenamine Hippurate 1 gm PO BID 07/12/19 06/23/22 History Mirabegron [Myrbetriq] 25 mg PO DAILY 10/08/19 06/23/22 History Fenofibrate [Lofibra] 160 mg PO HS tab 10/17/19 06/23/22 Rx Gabapentin [Neurontin] 400 mg PO TID cap 10/17/19 06/23/22 Rx Rivaroxaban [Xarelto] 20 mg PO HS tab 10/17/19 06/23/22 Rx Trimethoprim [Trimpex] 100 mg PO HS tab 10/17/19 06/23/22 Rx Promethazine [Phenergan] 25 mg PO Q6H PRN 11/30/19 06/23/22 History Levothyroxine Sodium [Synthroid] 125 mcg PO MOTUWETH 12/28/19 06/23/22 History Albuterol Inhaler [Ventolin Hfa 2 puff INHALATION RT-Q2H PRN 09/19/20 06/23/22 History Inhaler] Dexlansoprazole [Dexilant] 60 mg PO DAILY 09/19/20 06/23/22 History Galcanezumab-Gnlm [Emgality Pen] 120 mg SQ Q30D 09/19/20 06/23/22 History Meloxicam [Mobic] 15 mg PO DAILY 09/19/20 06/23/22 History Rizatriptan Benzoate [Rizatriptan] 5 mg PO BID PRN 09/19/20 06/23/22 History Sodium Chloride 0.9% Iv 1,500 ml IV DAILY 09/19/20 06/23/22 History Brexpiprazole [Rexulti] 0.5 mg PO HS 06/01/21 06/23/22 History Cyanocobalamin (Vitamin B-12) 1,000 mcg PO DAILY 06/01/21 06/23/22 History [Vitamin B-12] Ezetimibe [Zetia] 10 mg PO HS 06/01/21 06/23/22 History busPIRone HCL [Buspar] 30 mg PO BID 06/01/21 06/23/22 History Baclofen [Lioresal] 20 mg PO QID 06/02/21 06/23/22 History Fluticasone/Vilanterol [Breo 1 puff INHALATION RT-DAILY 09/27/21 06/23/22 History Ellipta 100-25 Mcg Inhaler] Ondansetron Odt [Zofran ODT] 8 mg PO TID PRN 09/27/21 06/23/22 History polyethylene glycoL 3350 [Miralax] 17 gm PO DAILY 09/27/21 06/23/22 History Metoprolol Succinate (ER) [Toprol 100 mg PO DAILY 02/05/22 06/23/22 History XL] Dexmethylphenidate HCl [Focalin] 5 mg PO DAILY 04/26/22 06/23/22 History Fluticasone Nasal [place] [Flonase 1 spray EA NOSTRIL DAILY 04/26/22 06/23/22 History Nasal [place]] HYDROcodone/APAP 5-325MG [[place] 1 - 2 tab PO Q8HR PRN 04/26/22 06/23/22 History 5-325] Insulin Aspart (Niacinamide) See Protocol SQ ACHS PRN 04/26/22 06/23/22 History [Fiasp 100 Unit/ml Flextouch Pen] Insulin Glargine,Hum.rec.anlog 30 unit SQ BID 04/26/22 06/23/22 History [Lantus Solostar Pen] Levocetirizine Dihydrochloride 5 mg PO BID 04/26/22 06/23/22 History [Xyzal] [place] Carbonate [[place] 300 mg PO TID 04/26/22 06/23/22 History Carbonate ER] Metoclopramide [Reglan] 10 mg PO ACHS PRN 04/26/22 06/23/22 History traZODone HCL 200 mg PO HS 04/26/22 06/23/22 History Ammonium Lactate Lotion 1 applic TOPICAL BID PRN 06/23/22 06/23/22 History [Lac-Hydrin 12% Lotion] Butalbit/Acetamin/Caff/Codeine 1 cap PO Q8H PRN 06/23/22 06/23/22 History [Butal/APAP/Caff/Cod 66-465-87-30MG] Dicyclomine HCl 20 mg PO Q6H PRN 06/23/22 06/23/22 History Heparin Sodium,Porcine [Heparin 1 dose IV DAILY PRN 06/23/22 06/23/22 History Sodium] Ketoconazole 2% Shampoo [Nizoral] 1 applic TOPICAL DIRECTED PRN 06/23/22 06/23/22 History Lidocaine 4% [place] 1 spray TOPICAL Q8H PRN 06/23/22 06/23/22 History Meclizine HCl [Antivert] 25 mg PO TID PRN 06/23/22 06/23/22 History Ondansetron 4mg/2ml Injection 8 mg IVP Q8H PRN 06/23/22 06/23/22 History Phenazopyridine HCl 95 mg PO DAILY PRN 06/23/22 06/23/22 History Prochlorperazine [Compro] 25 mg RECTAL Q8H PRN 06/23/22 06/23/22 History Rimegepant Sulfate [Nurtec Odt] 75 mg PO DAILY PRN 06/23/22 06/23/22 History Semaglutide [Ozempic] 1 mg SQ FR 06/23/22 06/23/22 History Sucralfate [Carafate] 1 gm PO BID PRN 06/23/22 06/23/22 History Sucralfate [Carafate] 1 gm PO DAILY 06/23/22 06/23/22 History cloNIDine HCL [[place]] 0.2 mg PO BID 06/23/22 06/23/22 History modafiniL [Provigil] 200 - 400 mg PO DAILY PRN 06/23/22 06/23/22 History tiZANidine HCL 2 mg PO DAILY PRN 06/23/22 06/23/22 History Allergies Allergy/AdvReac Type Severity Reaction Status Date / Time peanut oil Allergy Severe Nausea & Verified 06/23/22 21:38 Vomiting,itching barium sulfate Allergy Anaphylaxis Verified 06/23/22 21:38 doxepin [Doxepin] Allergy Anaphylaxis Verified 06/23/22 21:38 ephedrine Allergy Chest Verified 06/23/22 21:38 Pain/tachycardia ertapenem [From Invanz] Allergy Rash/Hives- Verified 06/23/22 21:38 like a chemical burn peanut Allergy Nausea & Verified 06/23/22 21:38 Vomiting/itching pseudoephedrine Allergy Chest Pain Verified 06/23/22 21:38 Sulfa (Sulfonamide Allergy Nausea & Verified 06/23/22 21:38 Antibiotics) Vomiting, DEHYDRATION sumatriptan [From Imitrex] Allergy affects Verified 06/23/22 21:38 vision-unable to see for hrs. doxycycline AdvReac Nausea & Verified 06/23/22 21:38 Vomiting & Diarrhea pseudoephedrine HCl AdvReac chest Verified 06/23/22 21:38 [From Sudafed] pain/tachycardia sulfamethoxazole AdvReac Nausea & Verified 06/23/22 21:38 [From Bactrim] Vomiting Surgical - Exam Vital Signs Temp Pulse Resp BP Pulse Ox 98.9 F 66 16 143/92 96 06/23/22 18:10 06/23/22 18:10 06/23/22 18:10 06/23/22 18:10 06/23/22 18:10 General appearance: The patient is alert, oriented, appears in no acute distress. Obese. HET: Head is normocephalic and atraumatic. Pupils are equal and reactive. Neck: Supple without lymphadenopathy. Trachea midline. chest: Right chest wall port site without any redness, drainage. No tenderness to palpation. Heart: S1 S2. Regular rate and rhythm. Lungs: Clear to auscultation bilaterally. Abdomen: Soft, nontender, nondistended. Extremities: Normal skin color and turgor. Neurological: No focal deficits. alert and oriented 3. Results - Labs 06/23/22 21:16 06/23/22 20:33 Abnormal Lab Results - Last 24 Hours (Table) 06/23/22 06/23/22 06/23/22 Range/Units 20:33 21:16 23:29 WBC 12.3 H (3.8-10.6) k/uL Plt Count 488 H (150-450) k/uL Neutrophils # 9.7 H (1.3-7.7) k/uL Carbon Dioxide 19 L (22-30) mmol/L Glucose 135 H (74-99) mg/dL POC Glucose (mg/dL) 137 H (70-110) mg/dL Calcium 10.6 H (8.4-10.2) mg/dL 06/24/22 06/24/22 Range/Units 07:10 11:37 WBC (3.8-10.6) k/uL Plt Count (150-450) k/uL Neutrophils # (1.3-7.7) k/uL Carbon Dioxide (22-30) mmol/L Glucose (74-99) mg/dL POC Glucose (mg/dL) 120 H 125 H (70-110) mg/dL Calcium (8.4-10.2) mg/dL Diabetes panel 06/23/22 Range/Units 20:33 Sodium 138 (137-145) mmol/L Potassium 4.7 (3.5-5.1) mmol/L Chloride 107 (98-107) mmol/L Carbon Dioxide 19 L (22-30) mmol/L BUN 13 (7-17) mg/dL Creatinine 0.79 (0.52-1.04) mg/dL Glucose 135 H (74-99) mg/dL Calcium 10.6 H (8.4-10.2) mg/dL AST 26 (14-36) U/L ALT 25 (4-34) U/L Alkaline Phosphatase 71 (38-126) U/L Total Protein 7.6 (6.3-8.2) g/dL Albumin 4.8 (3.5-5.0) g/dL Calcium panel 06/23/22 Range/Units 20:33 Calcium 10.6 H (8.4-10.2) mg/dL Albumin 4.8 (3.5-5.0) g/dL Pituitary panel 06/23/22 Range/Units 20:33 Sodium 138 (137-145) mmol/L Potassium 4.7 (3.5-5.1) mmol/L Chloride 107 (98-107) mmol/L Carbon Dioxide 19 L (22-30) mmol/L BUN 13 (7-17) mg/dL Creatinine 0.79 (0.52-1.04) mg/dL Glucose 135 H (74-99) mg/dL Calcium 10.6 H (8.4-10.2) mg/dL Adrenal panel 06/23/22 Range/Units 20:33 Sodium 138 (137-145) mmol/L Potassium 4.7 (3.5-5.1) mmol/L Chloride 107 (98-107) mmol/L Carbon Dioxide 19 L (22-30) mmol/L BUN 13 (7-17) mg/dL Creatinine 0.79 (0.52-1.04) mg/dL Glucose 135 H (74-99) mg/dL Calcium 10.6 H (8.4-10.2) mg/dL Total Bilirubin 0.2 (0.2-1.3) mg/dL AST 26 (14-36) U/L ALT 25 (4-34) U/L Alkaline Phosphatase 71 (38-126) U/L Total Protein 7.6 (6.3-8.2) g/dL Albumin 4.8 (3.5-5.0) g/dL Assessment and Plan Assessment: 1. Positive blood culture staph epi 2. Possible infected port Plan: Patient was seen and examined. There is no erythema or drainage at port site currently. She is afebrile. Will await recommendations from infectious disease and final blood cultures. Thank you for this consultation, we'll continue to follow. The impression and plan of care has been dictated as directed. Dr.Giliberto Birmingham performed a history and examination of this patient, discussed the same with the dictator. I agree with the dictator's note ,documented as a scribe. Any additional findings or plans will be noted.
[2022-06-24] MEDS: GABAPENTIN 400 MG CAP PO SCH ×2 (15:20→20:44)
[2022-06-24] MEDS: NON FORMULARY DRUG (Rimegepant Sulfate [Nurtec Odt] 75 MG Tablet) PO PRN (15:22)
[2022-06-24] MEDS ORDERED: NON FORMULARY DRUG (Lithium Carbonate [Lithium Carbonate Er] 300 MG Tablet) PO SCH (16:00)
[2022-06-24 16:34] LABS: Glucose,Whole Blood 106 mg/dL (70-110)
[2022-06-24] MEDS: BACLOFEN 10 MG TAB PO SCH ×2 (17:28→20:45)
[2022-06-24 20:15] LABS: Glucose,Whole Blood 151 mg/dL (70-110)
[2022-06-24] MEDS: traZODone HCL 100 MG TAB PO SCH (20:44)
[2022-06-24] MEDS: busPIRone HCl 10 MG TAB PO SCH (20:44)
[2022-06-24] MEDS: EZETIMIBE 10 MG TAB PO SCH (20:45)
[2022-06-24] MEDS: FENOFIBRATE 160 MG TAB PO SCH (20:46)
[2022-06-24] MEDS: NON FORMULARY DRUG (Methenamine Hippurate [Methenamine Hippurate] 1 GM Tablet) PO SCH (20:46)
[2022-06-24] MEDS: cloNIDine HCL 0.2 MG TAB PO SCH (20:46)
[2022-06-24] MEDS: NON FORMULARY DRUG (Brexpiprazole [Rexulti] 0.5 MG Tablet) PO SCH (20:47)
[2022-06-24] MEDS: TRIMETHOPRIM 100 MG TAB PO SCH (20:48)
[2022-06-24] MEDS: LITHIUM CARBONATE ER 450 MG TABLET.ER PO SCH (20:55)
[2022-06-24] MEDS: INSULIN DETEMIR (LEVEMIR) 100 UNIT/ML SYR SQ SCH (20:55)
--- NOTE | 2022-06-24 22:48 | P.CONS ---
History of Present Illness - Reason for Consult Consult date: 06/24/22 Positive blood culture Requesting physician: Ashvin Sahni - Chief Complaint Fever and drainage from the Mediport x few days - History of Present Illness /Patient is a 41-year-old female with a past medical history sniffing for diabetes mellitus DVT mitochondrial metabolism disorder thyroiditis in this patient who do have right IJ port that was placed on 02/10/[address] Kumar for IV fluids. Patient mention port has been accessed every week and the needle was changed to once a week last time the needle was changed there was some purulent drainage patient also been complaining of fever and chills patient did have blood cultures obtained which came back positive with the gram-positive cocci and the patient presented to hospital for further evaluation and treatment patient on presentation to the hospital was afebrile subsequently have low-grade fever of 99.2 F patient did have white count of 12.3 with a left shift kidney function has been normal liver enzymes are normal blood cultures from 8 2 are growing Staph epidermidis patient has been started on vancomycin infectious disease was consulted for further management of antibiotic therapy Review of Systems Positive point has been mentioned in the HPI rest of the systems are negative Past Medical History Past Medical History: Asthma, CVA/TIA, Diabetes Mellitus, Deep Vein Thrombosis (DVT), GERD/Reflux, Neurologic Disorder, Sleep Apnea/CPAP/BIPAP, Syncope, Thyroid Disorder Additional Past Medical History / Comment(s): Patient states recent low grade fevers thinkgabriela may be realted to blood clot in port causing infection. States port is not working right. Mitochondrial metabolism disorder. Port a cath right chest-currently not working. Stroke like episode d/t mitochondrial disease, Dysautonomia, idiopathic intracranial HTN, Lupus, Emily's Thyroiditis. Lymphedema left arm d/t DVTs, avoid use of left arm for BP, IV, blood draws. Vtach, pituitary microadenoma, patent foramen ovale, narcolepsy, gastropareis, hx orthostatic hypotension/syncope, migraines with hemiplegia, pernicious anemia, polycystic ovarian syndrome, neuropathy bilateral legs/feet/arms, neurogenic bladder with UTI's, stress incontinence, uses wheelchair, able to transfer and walk few steps, sleep apnea-has not received machine yet, lupus anticoagulation syndrome. History of Any Multi-Drug Resistant Organisms: ESBL, MRSA Year Discovered:: 03/09/17 MRSA/ 05/17/18 ESBL MDRO Source:: MRSA LEFT ARM,/ESBL URINE [facility]I Past Surgical History: Cholecystectomy, Uterine Ablation Additional Past Surgical History / Comment(s): Colonscopy/EGD, GERSON, PORT-A -CATH INSERTION X3. Past Anesthesia/Blood Transfusion Reactions: Previous Problems w/ Anesthesia, Motion Sickness Additional Past Anesthesia/Blood Transfusion Reaction / Comm: Patient states difficult to sedate. Past Psychological History: Anxiety, Bipolar, Depression Additional Psychological History / Comment(s): . Smoking Status: Never smoker Past Alcohol Use History: None Reported Additional Past Alcohol Use History / Comment(s): . Past Drug Use History: None Reported - Past Family History Brother(s) Family Medical History: Diabetes Mellitus, Hyperlipidemia, Hypertension Additional Family Medical History / Comment(s): Patient states she has 1 brother with no major medical problems. Father History Unknown: Yes Family Medical History: Diabetes Mellitus, Hyperlipidemia, Hypertension Mother Family Medical History: CVA/TIA, Diabetes Mellitus, Deep Vein Thrombosis (DVT) Additional Family Medical History / Comment(s): Antiphospholipid antibody syndrome, Lupus, dementia. Medications and Allergies Home Medications Medication Instructions Recorded Confirmed Type Levothyroxine Sodium [Synthroid] 100 mcg PO DAILY 01/16/19 06/23/22 History Methenamine Hippurate 1 gm PO BID 07/12/19 06/23/22 History Mirabegron [Myrbetriq] 25 mg PO DAILY 10/08/19 06/23/22 History Fenofibrate [Lofibra] 160 mg PO HS tab 10/17/19 06/23/22 Rx Gabapentin [Neurontin] 400 mg PO TID cap 10/17/19 06/23/22 Rx Rivaroxaban [Xarelto] 20 mg PO HS tab 10/17/19 06/23/22 Rx Trimethoprim [Trimpex] 100 mg PO HS tab 10/17/19 06/23/22 Rx Promethazine [Phenergan] 25 mg PO Q6H PRN 11/30/19 06/23/22 History Levothyroxine Sodium [Synthroid] 125 mcg PO MOTUWETH 12/28/19 06/23/22 History Albuterol Inhaler [Ventolin Hfa 2 puff INHALATION RT-Q2H PRN 09/19/20 06/23/22 History Inhaler] Dexlansoprazole [Dexilant] 60 mg PO DAILY 09/19/20 06/23/22 History Galcanezumab-Gnlm [Emgality Pen] 120 mg SQ Q30D 09/19/20 06/23/22 History Meloxicam [Mobic] 15 mg PO DAILY 09/19/20 06/23/22 History Rizatriptan Benzoate [Rizatriptan] 5 mg PO BID PRN 09/19/20 06/23/22 History Sodium Chloride 0.9% Iv 1,500 ml IV DAILY 09/19/20 06/23/22 History Brexpiprazole [Rexulti] 0.5 mg PO HS 06/01/21 06/23/22 History Cyanocobalamin (Vitamin B-12) 1,000 mcg PO DAILY 06/01/21 06/23/22 History [Vitamin B-12] Ezetimibe [Zetia] 10 mg PO HS 06/01/21 06/23/22 History busPIRone HCL [Buspar] 30 mg PO BID 06/01/21 06/23/22 History Baclofen [Lioresal] 20 mg PO QID 06/02/21 06/23/22 History Fluticasone/Vilanterol [Breo 1 puff INHALATION RT-DAILY 09/27/21 06/23/22 History Ellipta 100-25 Mcg Inhaler] Ondansetron Odt [Zofran ODT] 8 mg PO TID PRN 09/27/21 06/23/22 History polyethylene glycoL 3350 [Miralax] 17 gm PO DAILY 09/27/21 06/23/22 History Metoprolol Succinate (ER) [Toprol 100 mg PO DAILY 02/05/22 06/23/22 History XL] Dexmethylphenidate HCl [Focalin] 5 mg PO DAILY 04/26/22 06/23/22 History Fluticasone Nasal [place] [Flonase 1 spray EA NOSTRIL DAILY 04/26/22 06/23/22 History Nasal Art[place]us] HYDROcodone/APAP 5-325MG [[place] 1 - 2 tab PO Q8HR PRN 04/26/22 06/23/22 History 5-325] Insulin Aspart (Niacinamide) See Protocol SQ ACHS PRN 04/26/22 06/23/22 History [Fiasp 100 Unit/ml Flextouch Pen] Insulin Glargine,Hum.rec.anlog 30 unit SQ BID 04/26/22 06/23/22 History [Lantus Solostar Pen] Levocetirizine Dihydrochloride 5 mg PO BID 04/26/22 06/23/22 History [Xyzal] [place] Carbonate [[place] 300 mg PO TID 04/26/22 06/23/22 History Carbonate ER] Metoclopramide [Reglan] 10 mg PO ACHS PRN 04/26/22 06/23/22 History traZODone HCL 200 mg PO HS 04/26/22 06/23/22 History Ammonium Lactate Lotion 1 applic TOPICAL BID PRN 06/23/22 06/23/22 History [Lac-Hydrin 12% Lotion] Butalbit/Acetamin/Caff/Codeine 1 cap PO Q8H PRN 06/23/22 06/23/22 History [Butal/APAP/Caff/Cod 79-752-88-30MG] Dicyclomine HCl 20 mg PO Q6H PRN 06/23/22 06/23/22 History Heparin Sodium,Porcine [Heparin 1 dose IV DAILY PRN 06/23/22 06/23/22 History Sodium] Ketoconazole 2% Shampoo [Nizoral] 1 applic TOPICAL DIRECTED PRN 06/23/22 06/23/22 History Lidocaine 4% Artemus 1 spray TOPICAL Q8H PRN 06/23/22 06/23/22 History Meclizine HCl [Antivert] 25 mg PO TID PRN 06/23/22 06/23/22 History Ondansetron 4mg/2ml Injection 8 mg IVP Q8H PRN 06/23/22 06/23/22 History Phenazopyridine HCl 95 mg PO DAILY PRN 06/23/22 06/23/22 History Prochlorperazine [Compro] 25 mg RECTAL Q8H PRN 06/23/22 06/23/22 History Rimegepant Sulfate [Nurtec Odt] 75 mg PO DAILY PRN 06/23/22 06/23/22 History Semaglutide [Ozempic] 1 mg SQ FR 06/23/22 06/23/22 History Sucralfate [Carafate] 1 gm PO BID PRN 06/23/22 06/23/22 History Sucralfate [Carafate] 1 gm PO DAILY 06/23/22 06/23/22 History cloNIDine HCL [Kapvay] 0.2 mg PO BID 06/23/22 06/23/22 History modafiniL [Provigil] 200 - 400 mg PO DAILY PRN 06/23/22 06/23/22 History tiZANidine HCL 2 mg PO DAILY PRN 06/23/22 06/23/22 History Allergies Allergy/AdvReac Type Severity Reaction Status Date / Time peanut oil Allergy Severe Nausea & Verified 06/23/22 21:38 Vomiting,itching barium sulfate Allergy Anaphylaxis Verified 06/23/22 21:38 doxepin [Doxepin] Allergy Anaphylaxis Verified 06/23/22 21:38 ephedrine Allergy Chest Verified 06/23/22 21:38 Pain/tachycardia ertapenem [From Invanz] Allergy Rash/Hives- Verified 06/23/22 21:38 like a chemical burn peanut Allergy Nausea & Verified 06/23/22 21:38 Vomiting/itching pseudoephedrine Allergy Chest Pain Verified 06/23/22 21:38 Sulfa (Sulfonamide Allergy Nausea & Verified 06/23/22 21:38 Antibiotics) Vomiting, DEHYDRATION sumatriptan [From Imitrex] Allergy affects Verified 06/23/22 21:38 vision-unable to see for hrs. doxycycline AdvReac Nausea & Verified 06/23/22 21:38 Vomiting & Diarrhea pseudoephedrine HCl AdvReac chest Verified 06/23/22 21:38 [From Sudafed] pain/tachycardia sulfamethoxazole AdvReac Nausea & Verified 06/23/22 21:38 [From Bactrim] Vomiting Physical Exam Vitals: Vital Signs Temp Pulse Pulse Resp BP BP Pulse Ox 06/24/22 08:14 106/69 06/24/22 07:38 98.1 F 75 16 93/61 98 06/24/22 01:52 98.7 F 79 18 91/65 96 06/23/22 22:15 99.2 F 91 18 140/86 97 06/23/22 21:00 97 126/94 06/23/22 18:10 98.9 F 66 16 143/92 96 Intake and Output 06/23/22 06/24/22 06/24/22 22:59 06:59 14:59 Other: Voiding Method Toilet Weight 117.934 kg GENERAL DESCRIPTION: Middle-aged female lying in bed, no distress. No tachypnea or accessory muscle of respiration use. HEENT: Shows Pallor , no scleral icterus. Oral mucous membrane is dry. No pharyngeal erythema or thrush NECK: Trachea central, no thyromegaly. LUNGS: Unlabored breathing. Clear to auscultation anteriorly. No wheeze or crackle. HEART: S1, S2, regular rate and rhythm. No loud murmur, right chest wall port site with minimal erythema ABDOMEN: Soft, no tenderness , guarding or rigidity, no organomegaly EXTREMITIES: No edema of feet. SKIN: No rash, no masses palpable. NEUROLOGICAL: The patient is awake, alert, oriented x3, mood and affect normal. Results CBC & Chem 7: 06/26/22 05:54 06/26/22 05:54 Labs: Abnormal Lab Results - Last 24 Hours (Table) 06/23/22 06/23/22 06/23/22 Range/Units 20:33 21:16 23:29 WBC 12.3 H (3.8-10.6) k/uL Plt Count 488 H (150-450) k/uL Neutrophils # 9.7 H (1.3-7.7) k/uL Carbon Dioxide 19 L (22-30) mmol/L Glucose 135 H (74-99) mg/dL POC Glucose (mg/dL) 137 H (70-110) mg/dL Calcium 10.6 H (8.4-10.2) mg/dL 06/24/22 Range/Units 07:10 WBC (3.8-10.6) k/uL Plt Count (150-450) k/uL Neutrophils # (1.3-7.7) k/uL Carbon Dioxide (22-30) mmol/L Glucose (74-99) mg/dL POC Glucose (mg/dL) 120 H (70-110) mg/dL Calcium (8.4-10.2) mg/dL Assessment and Plan (1) Bacteremia Current Visit: Yes Status: Acute Code(s): R78.81 - BACTEREMIA SNOMED Code(s): 6115987 Plan: 1patient with Staphylococcus epidermidis bacteremia source likely right chest wall MediPort that the patient has for about 5 months now and the patient is complaining of some purulent drainage with concern for possible Mediport inf ection. 2blood culture has been repeated and those will be followed. 3patient will likely need removal of Mediport In order to completely cure this infection for which a vascular surgery has been consulted 4vancomycin pharmacy to dose target trough of 15 while watching kidney function and vancomycin trough closely. We will follow on clinical condition and cultures to further adjust medication if needed Thank you for this consultation will follow this patient along with you Time with Patient: Greater than 30
--- NOTE | 2022-06-25 01:00 | HP ---
HISTORY AND PHYSICAL CHIEF COMPLAINTS: Pain and swelling and infection of the right port as well as positive blood cultures. HISTORY OF PRESENT ILLNESS: This 41-year-old woman with a past medical history of multiple medical problems including asthma, diabetes mellitus, and DVT, who also had a right port through which the patient gets regular intravenous hydration at home. The patient noticed some purulence and some pus coming out of the port and from the needle. Dr. Montano performed outpatient blood cultures which is positive for Staph epi, and the patient admitted for further evaluation and treatment. There is no history of any fever, rigors, headache, loss of consciousness, or seizures. PAST MEDICAL HISTORY: Reviewed and include asthma, CVA, TIA, diabetes mellitus, DVT, and other complex medical issues. HOME MEDICATIONS: Again reviewed which include rizatriptan, and the dose and rest of medications reviewed. ALLERGIES: Reviewed and include peanut oil. FAMILY HISTORY: History of diabetes, hypertension, and hyperlipidemia. SOCIAL HISTORY: No history of smoking or alcohol. REVIEW OF SYSTEMS: A 14-point review of systems negative except as mentioned earlier. PHYSICAL EXAMINATION: VITAL SIGNS: Pulse 75, blood pressure 90/60, respirations 16. HEENT: Conjunctivae normal. NECK: No jugular venous distention. CARDIOVASCULAR: S1, S2 muffled. RESPIRATIONS: Breath sounds diminished at the bases. No rhonchi. No crackles. ABDOMEN: Soft and nontender. LEGS: No edema. NERVOUS SYSTEM: No focal deficits. SKIN: Right port pain and infection present. JOINTS: No active deforming arthropathy. LABS: WBC 12.6. Other labs are noted. ASSESSMENT: 1. Acute right port infection with bacteremia with Staphylococcus epidermidis. 2. Asthma. 3. Diabetes mellitus, type 2. 4. Deep venous thrombosis. 5. Gastroesophageal reflux disease. 6. Multiple complex medical issues. RECOMMENDATIONS: This 41-year-old woman who presented with multiple complex medical issues. The patient had infected right port through which the patient is receiving IV fluids at home. I would recommend broad-spectrum IV antibiotics. Infectious Disease evaluation Resume the home medications. The prognosis is extremely guarded because of multiple complex medical issues, and further recommendations to follow. See orders for details. MMODL / IJN: [id number] /
[2022-06-25] MEDS: VANCOMYCIN 1,750 MG in SODIUM CHLORIDE 0.9% 500 ML 500 ML IVPB SCH ×3 (05:29→18:36)
[2022-06-25] MEDS: SODIUM CHLORIDE 0.9% 1,000 ML IV SCH ×2 (05:30→08:48)
[2022-06-25] MEDS: ONDANSETRON 4 MG/2 ML VIAL IVP PRN (05:37)
[2022-06-25] MEDS: LEVOTHYROXINE 100 MCG TAB PO SCH (05:37)
[2022-06-25 07:03] LABS: Glucose,Whole Blood 164 mg/dL (70-110)
[2022-06-25 08:18] LABS: African American GFR (CKD) >90 (>60 ml/min/1.73 sqM); Non-African American GFR(CKD) >90 (>60 ml/min/1.73 sqM)
--- NOTE | 2022-06-25 08:30 | P.PN ---
Subjective Progress Note Date: 06/25/22 Principal diagnosis: Bacteremia, possible infected port Patient was seen and examined today as a follow-up. She's been afebrile. Blood cultures from 06/23/2022 currently without any growth 24 hours. Patient denies any fevers or chills. She denies any shortness of breath, chest pain, abdominal pain, nausea or vomiting. She is currently on vancomycin. Discussed Francisca's case with infectious disease Dr. Llanes and he is recommending for port removal. Objective - Vital Signs Vital signs: Vital Signs Temp 98.7 F 06/25/22 02:00 Pulse 76 06/25/22 02:00 Resp 14 06/25/22 02:00 BP 108/67 06/25/22 02:00 Pulse Ox 97 06/25/22 02:00 FiO2 Intake & Output 06/24/22 06/25/22 06/25/22 18:59 06:59 18:59 Other: Voiding Method Toilet Toilet # Voids 1 3 - Exam General appearance: The patient is alert, oriented, appears in no acute distress. Obese. HET: Head is normocephalic and atraumatic. Pupils are equal and reactive. Neck: Supple without lymphadenopathy. Trachea midline. Chest: Port right upper chest wall, no redness, drainage, tenderness. Heart: S1 S2. Regular rate and rhythm. Lungs: Clear to auscultation bilaterally. Abdomen: Soft, nontender, nondistended. Extremities: Normal skin color and turgor. Neurological: No focal deficits. Alert and oriented 3.. - Labs CBC & Chem 7: 06/23/22 21:16 06/25/22 07:48 Labs: Abnormal Lab Results - Last 24 Hours (Table) 06/24/22 06/24/22 06/25/22 Range/Units 11:37 20:14 07:02 POC Glucose (mg/dL) 125 H 151 H 164 H (70-110) mg/dL Microbiology - Last 24 Hours (Table) 06/23/22 20:35 Blood Culture - Preliminary Blood No Growth after 24 hours 06/23/22 20:25 Blood Culture - Preliminary Blood No Growth after 24 hours Assessment and Plan Assessment: 1. Positive blood culture staph epi 2. Possible infected port Plan: 1. Continue IV antibiotics per recommendations from infectious disease 2. Patient may have breakfast, nothing by mouth at 9 AM 3. Patient scheduled for port removal this afternoon with Dr. Mckeon The impression and plan of care has been dictated as directed. I performed a history and examination of this patient, discussed the same with the dictator. I agree with the dictator's note ,documented as a scribe. Any additional findings or plans will be noted.
[2022-06-25] MEDS: NON FORMULARY DRUG (Methenamine Hippurate [Methenamine Hippurate] 1 GM Tablet) PO SCH ×2 (08:37→22:00)
[2022-06-25] MEDS: BACLOFEN 10 MG TAB PO SCH ×4 (08:38→22:02)
[2022-06-25] MEDS: LORATADINE 10 MG TAB PO SCH (08:39)
[2022-06-25] MEDS: CYANOCOBALAMIN 500 MCG TAB PO SCH (08:39)
[2022-06-25] MEDS: METOPROLOL SUCCINATE (ER) 100 MG TAB.ER.24H PO SCH (08:39)
[2022-06-25] MEDS: cloNIDine HCL 0.2 MG TAB PO SCH ×2 (08:39→21:59)
[2022-06-25] MEDS: GABAPENTIN 400 MG CAP PO SCH ×3 (08:39→22:02)
[2022-06-25] MEDS: DEXILANT 60 MG PO SCH (08:39)
[2022-06-25] MEDS: polyethylene glycoL 3350 17 GM POWD.PACK PO SCH (08:40)
[2022-06-25] MEDS: INSULIN DETEMIR (LEVEMIR) 100 UNIT/ML SYR SQ SCH ×2 (08:40→22:05)
[2022-06-25] MEDS: NON FORMULARY DRUG (Mirabegron [Myrbetriq] 25 MG Tab.Er.24h) PO SCH (08:41)
[2022-06-25] MEDS: LITHIUM CARBONATE ER 450 MG TABLET.ER PO SCH ×2 (08:41→22:00)
[2022-06-25] MEDS: DEXMETHYLPHENIDATE HCL 5 MG PO SCH (08:46)
[2022-06-25] MEDS: SUCRALFATE 1 GM TAB PO SCH (08:48)
[2022-06-25] MEDS: MELOXICAM 7.5 MG TAB PO SCH (08:56)
[2022-06-25] MEDS: busPIRone HCl 10 MG TAB PO SCH ×2 (08:56→21:59)
[2022-06-25] MEDS ORDERED: NON FORMULARY DRUG (Semaglutide [Ozempic] 1 MG/0.75 ML Each) SQ SCH (09:00)
[2022-06-25] MEDS: BREO ELLIPTA INHALATION SCH (09:03)
[2022-06-25] MEDS: FLUTICASONE 50MCG/SPRAY NASAL 16GM EA NOSTRIL SCH (10:25)
[2022-06-25 11:31] LABS: Glucose,Whole Blood 159 mg/dL (70-110)
[2022-06-25 16:33] LABS: Glucose,Whole Blood 96 mg/dL (70-110)
[2022-06-25] MEDS ORDERED: LIDOCAINE 1% (PF) 10MG/ML VIAL SQ ONE ×3 (17:30→18:08)
[2022-06-25] MEDS ORDERED: IV FLUID CONTINUATION 1,000 ML IV ONE (17:50)
--- NOTE | 2022-06-25 18:10 | P.PN ---
Subjective Progress Note Date: 06/25/22 41-year-old female with a past medical history sniffing for diabetes mellitus DVT mitochondrial metabolism disorder thyroiditis in this patient who do have right IJ port that was placed on 02/10/[address] Kumar for IV fluids. Patient mention port has been accessed every week and the needle was changed to once a week last time the needle was changed there was some purulent drainage patient also been complaining of fever and chills patient did have blood cultures obtained which came back positive with the gram-positive cocci and the patient presented to hospital for further evaluation and treatment patient on presentation to the hospital was afebrile subsequently have low-grade fever of 99.2 F patient did have white count of 12.3 with a left shift kidney function has been normal liver enzymes are normal blood cultures from 8 2 are growing Staph epidermidis patient has been started on vancomycin infectious disease was consulted for further management of antibiotic therapy Objective - Vital Signs Vital signs: Vital Signs Temp 98.4 F 06/25/22 07:40 Pulse 76 06/25/22 07:40 Resp 17 06/25/22 07:40 BP 116/81 06/25/22 07:40 Pulse Ox 98 06/25/22 07:40 FiO2 Intake & Output 06/24/22 06/25/22 06/25/22 18:59 06:59 18:59 Other: Voiding Method Toilet Toilet # Voids 1 3 1 - Exam PHYSICAL EXAMINATION: GENERAL: The patient is alert and oriented x3, not in any acute distress. Well developed, well nourished. HEENT: Pupils are round and equally reacting to light. EOMI. No scleral icterus. No conjunctival pallor. Normocephalic, atraumatic. No pharyngeal erythema. No thyromegaly. CARDIOVASCULAR: S1 and S2 present. No murmurs, rubs, or gallops. PULMONARY: Chest is clear to auscultation, no wheezing or crackles. ABDOMEN: Soft, nontender, nondistended, normoactive bowel sounds. No palpable organomegaly. MUSCULOSKELETAL: No joint swelling or deformity. EXTREMITIES: No cyanosis, clubbing, or pedal edema. NEUROLOGICAL: Gross neurological examination did not reveal any focal deficits. SKIN: No rashes. - Labs CBC & Chem 7: 06/23/22 21:16 06/25/22 07:48 Labs: Abnormal Lab Results - Last 24 Hours (Table) 06/24/22 06/25/22 06/25/22 Range/Units 20:14 07:02 11:28 POC Glucose (mg/dL) 151 H 164 H 159 H (70-110) mg/dL Microbiology - Last 24 Hours (Table) 06/23/22 20:35 Blood Culture - Preliminary Blood No Growth after 24 hours 06/23/22 20:25 Blood Culture - Preliminary Blood No Growth after 24 hours Assessment and Plan Assessment: 1. Acute right port infection with staph epidermidis bacteremia 2. Asthma 3. Diabetes mellitus type 2 4. History of DVT 5. Gastroesophageal reflux disease 1patient with Staphylococcus epidermidis bacteremia source likely right IJ catheter that the patient has for about 5 months now and the patient is complaining of some purulent drainage with concern for possible pulmonary infection. 2blood culture has been repeated and those will be followed. 3patient will likely need removal of right IJ port In order to completely cure this infection. 4vancomycin pharmacy to dose target trough of 15 while watching kidney function and vancomycin trough closely.
--- NOTE | 2022-06-25 18:29 | P.OP ---
Date of Procedure: 06/25/22 Preoperative Diagnosis: Presumed infection of a Mediport. Postoperative Diagnosis: Same. Procedure(s) Performed: Explantation of Mediport with attainment of soft tissue culture. Implants: None. Anesthesia: MAC, local (1% Xylocaine) Surgeon: Marin Mckeon Estimated Blood Loss (ml): 3 Urine output (ml): 0 Pathology: other (Wound culture) Condition: stable Disposition: no change Indications for Procedure: Patient is a 41-year-old female with history of gastroparesis and need for daily IV hydration and administration of medications. She recently presented with signs and symptoms of infectious complications. Cerner is expressed for the possibility of infection of the port and it was recommended the port be removed. The procedure, risk and benefits as well as implications were discussed with the patient. Patient wished to proceed. Description of Procedure: Patient was brought the upper and placed in supine position and administered attended anesthesia delivered by the department of anesthesiology. Patient remain on a course of regularly scheduled IV antibiotics. The right anterior chest wall was sterilely prepped and draped in the usual manner. 1% Xylocaine was utilized for local anesthesia tissues overlying the port. Through the anesthetized area the previous incision was sharply reopened and the dissection was carried down to the level of the port. Hemostasis was achieved using electrocautery. Sutures holding the port in place were transected and the port was removed in its entirety. The wound was then irrigated and skin edges were loosely reapproximated with 4-0 nylon suture leaving enough room for drainage. There was no evidence of gross infectious issues identified. Patient tolerated the procedure well and was taken to the recovery area satisfactory and stable condition.
[2022-06-25 20:22] LABS: Glucose,Whole Blood 94 mg/dL (70-110)
[2022-06-25] MEDS: NON FORMULARY DRUG (Brexpiprazole [Rexulti] 0.5 MG Tablet) PO SCH (21:58)
[2022-06-25] MEDS: EZETIMIBE 10 MG TAB PO SCH (22:00)
[2022-06-25] MEDS: FENOFIBRATE 160 MG TAB PO SCH (22:00)
[2022-06-25] MEDS: traZODone HCL 100 MG TAB PO SCH (22:01)
[2022-06-25] MEDS: TRIMETHOPRIM 100 MG TAB PO SCH (22:01)
[2022-06-26] MEDS: SODIUM CHLORIDE 0.9% 1,000 ML IV SCH ×3 (00:26→17:57)
[2022-06-26] MEDS ORDERED: VANCOMYCIN TROUGH DUE 1 EACH MISC MISCELLANE ONE (05:00)
[2022-06-26] MEDS: LEVOTHYROXINE 100 MCG TAB PO SCH (05:57)
[2022-06-26] MEDS: VANCOMYCIN 1,750 MG in SODIUM CHLORIDE 0.9% 500 ML 500 ML IVPB SCH ×2 (05:57→17:56)
[2022-06-26 07:12] LABS: Glucose,Whole Blood 124 mg/dL (70-110)
[2022-06-26] MEDS: BREO ELLIPTA INHALATION SCH (07:44)
[2022-06-26 08:46] LABS: Basophils # (A) 0.03 X 10*3/uL (0.00-0.10); Basophils % (A) 0.4 %; Eosinophils # (A) 0.28 X 10*3/uL (0.04-0.35); Eosinophils % (A) 3.6 %; HCT 35.7 % (37.2-46.3); HGB 10.9 g/dL (12.0-15.0); Immature Grans, Automated 0.5 %; Lymphocytes # (A) 1.47 X 10*3/uL (0.90-5.00); Lymphocytes % (A) 18.8 %; MCH 28.3 pg (27.0-32.0); MCHC 30.5 g/dL (32.0-37.0); MCV 92.7 fL (80.0-97.0); Mean Platelet Volume 9.5 fL (9.5-12.2); Monocytes # (A) 0.59 X 10*3/uL (0.20-1.00); Monocytes % (A) 7.5 %; NRBC Per 100 WBC 0 /100 WBCS (0.0-0.0); Neutrophils # (A) 5.42 X 10*3/uL (1.80-7.70); Neutrophils % (A) 69.2 %; Platelet Count 291 X 10*3/uL (140-440); RBC 3.85 X 10*6/uL (4.10-5.20); RDW 13.9 % (11.5-14.5); WBC 7.83 X 10*3/uL (4.50-10.00)
[2022-06-26 08:56] LABS: African American GFR (CKD) 125.6 (60.0-200.0); Anion Gap 9.2 mmol/L (10.00-18.00); BUN/Creat Ratio 14.14 Ratio (12.00-20.00); Blood Urea Nitrogen 9.9 mg/dL (9.0-27.0); Calcium 9.2 mg/dL (8.7-10.3); Carbon Dioxide 22.8 mmol/L (20.0-27.5); Non-African American GFR(CKD) 108.4 (60.0-200.0)
[2022-06-26] MEDS: INSULIN DETEMIR (LEVEMIR) 100 UNIT/ML SYR SQ SCH ×2 (09:07→22:42)
[2022-06-26] MEDS: NON FORMULARY DRUG (Methenamine Hippurate [Methenamine Hippurate] 1 GM Tablet) PO SCH ×2 (09:08→22:43)
[2022-06-26] MEDS: FLUTICASONE 50MCG/SPRAY NASAL 16GM EA NOSTRIL SCH (09:08)
[2022-06-26] MEDS: polyethylene glycoL 3350 17 GM POWD.PACK PO SCH (09:08)
[2022-06-26] MEDS: NON FORMULARY DRUG (Mirabegron [Myrbetriq] 25 MG Tab.Er.24h) PO SCH (09:09)
[2022-06-26] MEDS: DEXILANT 60 MG PO SCH (09:10)
[2022-06-26] MEDS: busPIRone HCl 10 MG TAB PO SCH ×2 (09:11→22:41)
[2022-06-26] MEDS: MELOXICAM 7.5 MG TAB PO SCH (09:12)
[2022-06-26] MEDS: CYANOCOBALAMIN 500 MCG TAB PO SCH (09:12)
[2022-06-26] MEDS: SUCRALFATE 1 GM TAB PO SCH (09:12)
[2022-06-26] MEDS: cloNIDine HCL 0.2 MG TAB PO SCH ×2 (09:12→22:41)
[2022-06-26] MEDS: GABAPENTIN 400 MG CAP PO SCH ×3 (09:12→22:41)
[2022-06-26] MEDS: LORATADINE 10 MG TAB PO SCH (09:13)
[2022-06-26] MEDS: BACLOFEN 10 MG TAB PO SCH ×4 (09:13→22:41)
[2022-06-26] MEDS: METOPROLOL SUCCINATE (ER) 100 MG TAB.ER.24H PO SCH (09:14)
[2022-06-26] MEDS: LITHIUM CARBONATE ER 450 MG TABLET.ER PO SCH ×2 (09:14→22:45)
[2022-06-26] MEDS: DEXMETHYLPHENIDATE HCL 5 MG PO SCH (09:15)
[2022-06-26 11:08] LABS: Glucose,Whole Blood 143 mg/dL (70-110)
[2022-06-26 17:16] LABS: Glucose,Whole Blood 126 mg/dL (70-110)
--- NOTE | 2022-06-26 20:12 | P.PN ---
Subjective Progress Note Date: 06/25/22 Principal diagnosis: Bacteremia and infected port Patient is a 41-year-old female with a mitochondrial disorder, and this patient who did have a multiple ports for hydration presenting to the hospital with drainage from the port and a positive blood culture, patient is scheduled for removal of the port this afternoon. On today's evaluation that is at 06/25/2022, the patient denies having any fever or chills, the patient is breathing comfortably, denies any chest pain or shortness of breath or cough no nausea no vomiting no abdominal pain or diarrhea Objective - Vital Signs Vital signs: Vital Signs Temp 98.4 F 06/25/22 07:40 Pulse 76 06/25/22 07:40 Resp 17 06/25/22 07:40 BP 116/81 06/25/22 07:40 Pulse Ox 98 06/25/22 07:40 FiO2 Intake & Output 06/24/22 06/25/22 06/25/22 18:59 06:59 18:59 Other: Voiding Method Toilet Toilet # Voids 1 3 1 - Exam GENERAL DESCRIPTION: Middle-aged female lying in bed in no distress RESPIRATORY SYSTEM: Unlabored breathing , decreased breath sounds at bases HEART: S1 S2 regular rate and rhythm , ABDOMEN: Soft , no tenderness EXTREMITIES: No edema feet - Labs CBC & Chem 7: 06/26/22 05:54 06/26/22 05:54 Labs: Abnormal Lab Results - Last 24 Hours (Table) 06/24/22 06/25/22 06/25/22 Range/Units 20:14 07:02 11:28 POC Glucose (mg/dL) 151 H 164 H 159 H (70-110) mg/dL Microbiology - Last 24 Hours (Table) 06/23/22 20:35 Blood Culture - Preliminary Blood No Growth after 24 hours 06/23/22 20:25 Blood Culture - Preliminary Blood No Growth after 24 hours Assessment and Plan (1) Bacteremia Current Visit: Yes Status: Acute Code(s): R78.81 - BACTEREMIA SNOMED Code(s): 1886419 Plan: 1patient with Staphylococcus epidermidis bacteremia source likely Mediport infection that the patient has for about 5 months now and the patient is complaining of some purulent drainage with concern for possible "infection. 2blood culture has been repeated and those are pending so far 3patient is scheduled for removal of the port this evening. 4patient to continue with vancomycin pharmacy to dose target trough of 15 while watching kidney function and vancomycin trough closely. Time with Patient: Less than 30
--- NOTE | 2022-06-26 20:14 | P.PN ---
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 On today's evaluation that is at 06/26/2022, the patient remains to be afebrile, the patient is breathing comfortably, the patient denies any chest pain or shortness of breath or cough no nausea no vomiting no abdominal pain or diarrhea Objective - Vital Signs Vital signs: Vital Signs Temp 98.6 F 06/26/22 08:00 Pulse 71 06/26/22 08:00 Resp 16 06/26/22 08:00 BP 106/68 06/26/22 08:00 Pulse Ox 98 06/26/22 08:00 FiO2 Intake & Output 06/25/22 06/26/22 06/26/22 18:59 06:59 18:59 Intake Total 250 Output Total 5 Balance 245 Intake: IV 250 Output: Estimated Blood Loss 5 Other: # Voids 6 2 # Bowel Movements 1 - Exam GENERAL DESCRIPTION: Middle-aged female lying in bed in no distress RESPIRATORY SYSTEM: Unlabored breathing , decreased breath sounds at bases HEART: S1 S2 regular rate and rhythm , ABDOMEN: Soft , no tenderness EXTREMITIES: No edema feet - Labs CBC & Chem 7: 06/26/22 05:54 06/26/22 05:54 Labs: Abnormal Lab Results - Last 24 Hours (Table) 06/26/22 06/26/22 06/26/22 Range/Units 05:54 05:54 07:11 RBC 3.85 L (4.10-5.20) X 10*6/uL Hgb 10.9 L (12.0-15.0) g/dL Hct 35.7 L (37.2-46.3) % MCHC 30.5 L (32.0-37.0) g/dL Anion Gap 9.20 L (10.00-18.00) mmol/L Glucose 126 H (70-110) mg/dL POC Glucose (mg/dL) 124 H (70-110) mg/dL 06/26/22 Range/Units 11:06 RBC (4.10-5.20) X 10*6/uL Hgb (12.0-15.0) g/dL Hct (37.2-46.3) % MCHC (32.0-37.0) g/dL Anion Gap (10.00-18.00) mmol/L Glucose (70-110) mg/dL POC Glucose (mg/dL) 143 H (70-110) mg/dL Microbiology - Last 24 Hours (Table) 06/25/22 18:24 Gram Stain - Preliminary Chest Wound Culture - Preliminary 06/25/22 18:24 Anaerobic Culture - Preliminary Chest 06/23/22 20:35 Blood Culture - Preliminary Blood No Growth after 48 hours 06/23/22 20:25 Blood Culture - Preliminary Blood No Growth after 48 hours Assessment and Plan (1) Bacteremia Current Visit: Yes Status: Acute Code(s): R78.81 - BACTEREMIA SNOMED Code(s): 9012150 Plan: 1patient with Staphylococcus epidermidis bacteremia source likely Mediport inf ection that the patient has for about 5 months now and the patient is complaining of some purulent drainage with concern for possible port infection. 2blood culture has been repeated and those are pending so far 3patient is status post removal of the port 06/25/2022. 4patient to continue with vancomycin pharmacy to dose while waiting for repeat culture to be finalize Time with Patient: Less than 30
[2022-06-26 20:28] LABS: Glucose,Whole Blood 111 mg/dL (70-110)
[2022-06-26] MEDS: FENOFIBRATE 160 MG TAB PO SCH (22:41)
[2022-06-26] MEDS: EZETIMIBE 10 MG TAB PO SCH (22:42)
[2022-06-26] MEDS: NON FORMULARY DRUG (Brexpiprazole [Rexulti] 0.5 MG Tablet) PO SCH (22:42)
[2022-06-26] MEDS: TRIMETHOPRIM 100 MG TAB PO SCH (22:44)
[2022-06-26] MEDS: traZODone HCL 100 MG TAB PO SCH (22:46)
[2022-06-27] MEDS: VANCOMYCIN 1,750 MG in SODIUM CHLORIDE 0.9% 500 ML 500 ML IVPB SCH ×2 (05:36→17:53)
[2022-06-27] MEDS: SODIUM CHLORIDE 0.9% 1,000 ML IV SCH ×2 (05:37→15:29)
[2022-06-27] MEDS: LEVOTHYROXINE 100 MCG TAB PO SCH (05:38)
[2022-06-27 07:12] LABS: Glucose,Whole Blood 115 mg/dL (70-110)
[2022-06-27] MEDS: BREO ELLIPTA INHALATION SCH (07:32)
[2022-06-27] MEDS: CYANOCOBALAMIN 500 MCG TAB PO SCH (09:34)
[2022-06-27] MEDS: GABAPENTIN 400 MG CAP PO SCH ×3 (09:34→21:33)
[2022-06-27] MEDS: BACLOFEN 10 MG TAB PO SCH ×4 (09:34→21:32)
[2022-06-27] MEDS: cloNIDine HCL 0.2 MG TAB PO SCH ×2 (09:34→21:32)
[2022-06-27] MEDS: LORATADINE 10 MG TAB PO SCH (09:34)
[2022-06-27] MEDS: busPIRone HCl 10 MG TAB PO SCH ×2 (09:35→21:31)
[2022-06-27] MEDS: SUCRALFATE 1 GM TAB PO SCH (09:35)
[2022-06-27] MEDS: INSULIN DETEMIR (LEVEMIR) 100 UNIT/ML SYR SQ SCH ×2 (09:35→21:34)
[2022-06-27] MEDS: NON FORMULARY DRUG (Mirabegron [Myrbetriq] 25 MG Tab.Er.24h) PO SCH (09:36)
[2022-06-27] MEDS: polyethylene glycoL 3350 17 GM POWD.PACK PO SCH (09:36)
[2022-06-27] MEDS: MELOXICAM 7.5 MG TAB PO SCH (09:36)
[2022-06-27] MEDS: NON FORMULARY DRUG (Methenamine Hippurate [Methenamine Hippurate] 1 GM Tablet) PO SCH ×2 (09:37→21:35)
[2022-06-27] MEDS: DEXILANT 60 MG PO SCH (09:37)
[2022-06-27] MEDS: METOPROLOL SUCCINATE (ER) 100 MG TAB.ER.24H PO SCH (09:38)
[2022-06-27] MEDS: LITHIUM CARBONATE ER 450 MG TABLET.ER PO SCH ×2 (09:38→21:34)
[2022-06-27] MEDS: ONDANSETRON 4 MG/2 ML VIAL IVP PRN (09:39)
[2022-06-27] MEDS: FLUTICASONE 50MCG/SPRAY NASAL 16GM EA NOSTRIL SCH (09:40)
[2022-06-27] MEDS: DEXMETHYLPHENIDATE HCL 5 MG PO SCH (09:40)
[2022-06-27 11:23] LABS: Glucose,Whole Blood 165 mg/dL (70-110)
[2022-06-27 11:53] LABS: Basophils # (A) 0.03 X 10*3/uL (0.00-0.10); Basophils % (A) 0.4 %; Eosinophils # (A) 0.23 X 10*3/uL (0.04-0.35); Eosinophils % (A) 2.9 %; HCT 37.1 % (37.2-46.3); Immature Grans, Automated 0.5 %; Lymphocytes # (A) 1.15 X 10*3/uL (0.90-5.00); Lymphocytes % (A) 14.5 %; MCH 27.6 pg (27.0-32.0); MCHC 29.6 g/dL (32.0-37.0); Mean Platelet Volume 9.8 fL (9.5-12.2); Monocytes # (A) 0.61 X 10*3/uL (0.20-1.00); Monocytes % (A) 7.7 %; NRBC Per 100 WBC 0 /100 WBCS (0.0-0.0); Neutrophils # (A) 5.88 X 10*3/uL (1.80-7.70); Platelet Count 314 X 10*3/uL (140-440); RBC 3.99 X 10*6/uL (4.10-5.20); RDW 13.7 % (11.5-14.5); WBC 7.94 X 10*3/uL (4.50-10.00)
[2022-06-27 12:06] LABS: African American GFR (CKD) 125.6 (60.0-200.0); Blood Urea Nitrogen 9.1 mg/dL (9.0-27.0); Calcium 9.3 mg/dL (8.7-10.3); Non-African American GFR(CKD) 108.4 (60.0-200.0)
[2022-06-27 16:58] LABS: Glucose,Whole Blood 117 mg/dL (70-110)
[2022-06-27 20:30] LABS: Glucose,Whole Blood 129 mg/dL (70-110)
[2022-06-27] MEDS: FENOFIBRATE 160 MG TAB PO SCH (21:32)
[2022-06-27] MEDS: EZETIMIBE 10 MG TAB PO SCH (21:32)
[2022-06-27] MEDS: traZODone HCL 100 MG TAB PO SCH (21:33)
[2022-06-27] MEDS: NON FORMULARY DRUG (Brexpiprazole [Rexulti] 0.5 MG Tablet) PO SCH (21:35)
[2022-06-27] MEDS: TRIMETHOPRIM 100 MG TAB PO SCH (21:36)
[2022-06-28] MEDS ORDERED: VANCOMYCIN TROUGH DUE 1 EACH MISC MISCELLANE ONE (05:00)
[2022-06-28] MEDS: LEVOTHYROXINE 125 MCG TAB PO SCH (06:08)
[2022-06-28] MEDS: VANCOMYCIN 1,750 MG in SODIUM CHLORIDE 0.9% 500 ML 500 ML IVPB SCH ×2 (06:08→16:53)
[2022-06-28] MEDS: LEVOTHYROXINE 100 MCG TAB PO SCH (06:08)
[2022-06-28] MEDS: SODIUM CHLORIDE 0.9% 1,000 ML IV SCH ×3 (06:09→19:50)
[2022-06-28] MEDS: BREO ELLIPTA INHALATION SCH (07:44)
--- NOTE | 2022-06-28 08:06 | P.PN ---
Subjective Progress Note Date: 06/26/22 Principal diagnosis: Bacteremia and infected port 41-year-old female with a past medical history sniffing for diabetes mellitus DVT mitochondrial metabolism disorder thyroiditis in this patient who do have right IJ port that was placed on 02/10/[address] Kumar for IV fluids. Patient mention port has been accessed every week and the needle was changed to once a week last time the needle was changed there was some purulent drainage patient also been complaining of fever and chills patient did have blood cultures obtained which came back positive with the gram-positive cocci and the patient presented to hospital for further evaluation and treatment patient on presentation to the hospital was afebrile subsequently have low-grade fever of 99.2 F patient did have white count of 12.3 with a left shift kidney function has been normal liver enzymes are normal blood cultures from 8 2 are growing Staph epidermidis patient has been started on vancomycin infectious disease was consulted for further management of antibiotic therapy 06/26/2022 Patient is seen and evaluated in room at bedside; remains afebrile, the patient is breathing comfortably, the patient denies any chest pain or shortness of breath or cough no nausea no vomiting no abdominal pain or diarrhea patient with Staphylococcus epidermidis bacteremia source likely Mediport infection that the patient has for about 5 months now and the patient is complaining of some purulent drainage with concern for possible port infection. blood culture has been repeated and those are pending so far patient is status post removal of the port 06/25/2022. patient to continue with vancomycin pharmacy to dose while waiting for repeat culture to be finalize Objective - Vital Signs Vital signs: Vital Signs Temp 98.6 F 06/26/22 08:00 Pulse 71 06/26/22 08:00 Resp 16 06/26/22 08:00 BP 106/68 06/26/22 08:00 Pulse Ox 98 06/26/22 08:00 FiO2 Intake & Output 06/25/22 06/26/22 06/26/22 18:59 06:59 18:59 Intake Total 250 Output Total 5 Balance 245 Intake: IV 250 Output: Estimated Blood Loss 5 Other: # Voids 6 2 # Bowel Movements 1 - Exam PHYSICAL EXAMINATION: GENERAL: The patient is alert and oriented x3, not in any acute distress. Well developed, well nourished. HEENT: Pupils are round and equally reacting to light. EOMI. No scleral icterus. No conjunctival pallor. Normocephalic, atraumatic. No pharyngeal erythema. No thyromegaly. CARDIOVASCULAR: S1 and S2 present. No murmurs, rubs, or gallops. PULMONARY: Chest is clear to auscultation, no wheezing or crackles. ABDOMEN: Soft, nontender, nondistended, normoactive bowel sounds. No palpable organomegaly. MUSCULOSKELETAL: No joint swelling or deformity. EXTREMITIES: No cyanosis, clubbing, or pedal edema. NEUROLOGICAL: Gross neurological examination did not reveal any focal deficits. SKIN: No rashes. - Labs CBC & Chem 7: 06/27/22 07:28 06/27/22 07:28 Labs: Abnormal Lab Results - Last 24 Hours (Table) 06/26/22 06/26/22 06/26/22 Range/Units 05:54 05:54 07:11 RBC 3.85 L (4.10-5.20) X 10*6/uL Hgb 10.9 L (12.0-15.0) g/dL Hct 35.7 L (37.2-46.3) % MCHC 30.5 L (32.0-37.0) g/dL Anion Gap 9.20 L (10.00-18.00) mmol/L Glucose 126 H (70-110) mg/dL POC Glucose (mg/dL) 124 H (70-110) mg/dL 06/26/22 Range/Units 11:06 RBC (4.10-5.20) X 10*6/uL Hgb (12.0-15.0) g/dL Hct (37.2-46.3) % MCHC (32.0-37.0) g/dL Anion Gap (10.00-18.00) mmol/L Glucose (70-110) mg/dL POC Glucose (mg/dL) 143 H (70-110) mg/dL Microbiology - Last 24 Hours (Table) 06/25/22 18:24 Gram Stain - Preliminary Chest Wound Culture - Preliminary 06/25/22 18:24 Anaerobic Culture - Preliminary Chest 06/23/22 20:35 Blood Culture - Preliminary Blood No Growth after 48 hours 06/23/22 20:25 Blood Culture - Preliminary Blood No Growth after 48 hours Assessment and Plan Assessment: 1. Acute right port infection with staph epidermidis bacteremia 2. Asthma 3. Diabetes mellitus type 2 4. History of DVT 5. Gastroesophageal reflux disease 1patient with Staphylococcus epidermidis bacteremia source likely right IJ catheter that the patient has for about 5 months now and the patient is complaining of some purulent drainage with concern for possible pulmonary infection. 2blood culture has been repeated and those will be followed. 3patient will likely need removal of right IJ port In order to completely cure this infection. 4vancomycin pharmacy to dose target trough of 15 while watching kidney function and vancomycin trough closely.
--- NOTE | 2022-06-28 08:08 | P.PN ---
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 On today's evaluation that is at 06/27/2022, the patient continues to be afebrile, the patient is breathing comfortably on room air, the patient denies any chest pain or shortness of breath or cough, Patient denies nausea no vomiting no abdominal pain or diarrhea Objective - Vital Signs Vital signs: Vital Signs Temp 98.8 F 06/27/22 19:35 Pulse 76 06/27/22 19:35 Resp 18 06/27/22 19:35 BP 125/87 06/27/22 19:35 Pulse Ox 97 06/27/22 19:35 FiO2 Intake & Output 06/27/22 06/27/22 06/28/22 06:59 18:59 06:59 Intake Total 480 Balance 480 Intake: Oral 480 Other: Voiding Method Toilet # Voids 2 - Exam GENERAL DESCRIPTION: Middle-aged female lying in bed in no distress RESPIRATORY SYSTEM: Unlabored breathing , decreased breath sounds at bases HEART: S1 S2 regular rate and rhythm , ABDOMEN: Soft , no tenderness EXTREMITIES: No edema feet - Labs CBC & Chem 7: 06/27/22 07:28 06/27/22 07:28 Labs: Abnormal Lab Results - Last 24 Hours (Table) 06/27/22 06/27/22 06/27/22 Range/Units 07:10 07:28 07:28 RBC 3.99 L (4.10-5.20) X 10*6/uL Hgb 11.0 L (12.0-15.0) g/dL Hct 37.1 L (37.2-46.3) % MCHC 29.6 L (32.0-37.0) g/dL Chloride 111 H (96-109) mmol/L Glucose 133 H (70-110) mg/dL POC Glucose (mg/dL) 115 H (70-110) mg/dL 06/27/22 06/27/22 06/27/22 Range/Units 11:22 16:57 20:21 RBC (4.10-5.20) X 10*6/uL Hgb (12.0-15.0) g/dL Hct (37.2-46.3) % MCHC (32.0-37.0) g/dL Chloride (96-109) mmol/L Glucose (70-110) mg/dL POC Glucose (mg/dL) 165 H 117 H 129 H (70-110) mg/dL Microbiology - Last 24 Hours (Table) 06/23/22 20:35 Blood Culture - Preliminary Blood No Growth after 72 hours 06/23/22 20:25 Blood Culture - Preliminary Blood No Growth after 72 hours 06/25/22 18:24 Gram Stain - Preliminary Chest Wound Culture - Preliminary Assessment and Plan (1) Bacteremia Current Visit: Yes Status: Acute Code(s): R78.81 - BACTEREMIA SNOMED Code(s): 2838892 Plan: 1patient with Staphylococcus epidermidis bacteremia source likely Mediport infection that the patient has for about 5 months now and the patient is complaining of some purulent drainage with concern for possible port infection. 2blood culture has been repeated and those are pending so far 3patient is status post removal of the port 06/25/2022. 4patient currently being treated with vancomycin pharmacy to dose, with the to be blood culture negative so far should be able to get a PICC line or a new port Time with Patient: Less than 30
[2022-06-28 08:19] LABS: Glucose,Whole Blood 124 mg/dL (70-110)
[2022-06-28 08:52] LABS: Basophils # (A) 0.02 X 10*3/uL (0.00-0.10); Basophils % (A) 0.3 %; Eosinophils # (A) 0.25 X 10*3/uL (0.04-0.35); Eosinophils % (A) 3.2 %; HCT 36.1 % (37.2-46.3); HGB 10.8 g/dL (12.0-15.0); Immature Grans, Automated 0.6 %; Lymphocytes # (A) 1.26 X 10*3/uL (0.90-5.00); Lymphocytes % (A) 15.9 %; MCH 27.7 pg (27.0-32.0); MCHC 29.9 g/dL (32.0-37.0); MCV 92.6 fL (80.0-97.0); Monocytes % (A) 7.6 %; NRBC Per 100 WBC 0 /100 WBCS (0.0-0.0); Neutrophils # (A) 5.75 X 10*3/uL (1.80-7.70); Neutrophils % (A) 72.4 %; Platelet Count 306 X 10*3/uL (140-440); RDW 13.8 % (11.5-14.5); WBC 7.93 X 10*3/uL (4.50-10.00)
[2022-06-28] MEDS: DEXMETHYLPHENIDATE HCL 5 MG PO SCH (08:55)
[2022-06-28 09:04] LABS: African American GFR (CKD) 125.6 (60.0-200.0); Anion Gap 10.4 mmol/L (10.00-18.00); BUN/Creat Ratio 11.71 Ratio (12.00-20.00); Blood Urea Nitrogen 8.2 mg/dL (9.0-27.0); Calcium 9.3 mg/dL (8.7-10.3); Carbon Dioxide 21.6 mmol/L (20.0-27.5); Non-African American GFR(CKD) 108.4 (60.0-200.0); Potassium 4.2 mmol/L (3.5-5.5)
[2022-06-28] MEDS: polyethylene glycoL 3350 17 GM POWD.PACK PO SCH (09:04)
[2022-06-28] MEDS: INSULIN DETEMIR (LEVEMIR) 100 UNIT/ML SYR SQ SCH ×2 (09:05→22:01)
[2022-06-28] MEDS: LITHIUM CARBONATE ER 450 MG TABLET.ER PO SCH ×2 (09:05→21:54)
[2022-06-28] MEDS: CYANOCOBALAMIN 500 MCG TAB PO SCH (09:06)
[2022-06-28] MEDS: METOPROLOL SUCCINATE (ER) 100 MG TAB.ER.24H PO SCH (09:06)
[2022-06-28] MEDS: BACLOFEN 10 MG TAB PO SCH ×4 (09:06→21:55)
[2022-06-28] MEDS: busPIRone HCl 10 MG TAB PO SCH ×2 (09:06→21:55)
[2022-06-28] MEDS: GABAPENTIN 400 MG CAP PO SCH ×3 (09:07→21:55)
[2022-06-28] MEDS: cloNIDine HCL 0.2 MG TAB PO SCH ×2 (09:07→21:57)
[2022-06-28] MEDS: LORATADINE 10 MG TAB PO SCH (09:07)
[2022-06-28] MEDS: MELOXICAM 7.5 MG TAB PO SCH (09:08)
[2022-06-28] MEDS: NON FORMULARY DRUG (Methenamine Hippurate [Methenamine Hippurate] 1 GM Tablet) PO SCH ×2 (09:09→22:00)
[2022-06-28] MEDS: DEXILANT 60 MG PO SCH (09:09)
[2022-06-28] MEDS: FLUTICASONE 50MCG/SPRAY NASAL 16GM EA NOSTRIL SCH (09:09)
[2022-06-28] MEDS: NON FORMULARY DRUG (Mirabegron [Myrbetriq] 25 MG Tab.Er.24h) PO SCH (09:10)
[2022-06-28] MEDS: SUCRALFATE 1 GM TAB PO SCH (09:10)
--- NOTE | 2022-06-28 09:35 | P.PN ---
Subjective Progress Note Date: 06/28/22 Principal diagnosis: Bacteremia, possible infected port Patient seen and examined today as a follow-up. She had her port removed on Tuesday for bacteremia possible source Mediport. She's been afebrile throughout the weekend. No complaints at this time. Infectious disease is following, she's been on IV vancomycin. Awaiting final blood cultures. She currently has a midline. Objective - Vital Signs Vital signs: Vital Signs Temp 98.4 F 06/28/22 01:24 Pulse 70 06/28/22 01:24 Resp 16 06/28/22 01:24 BP 112/70 06/28/22 01:24 Pulse Ox 97 06/28/22 01:24 FiO2 Intake & Output 06/27/22 06/28/22 06/28/22 18:59 06:59 18:59 Intake Total 480 Balance 480 Intake: Oral 480 Other: Voiding Method Toilet - Exam General appearance: The patient is alert, oriented, appears in no acute distress. Obese. HET: Head is normocephalic and atraumatic. Pupils are equal and reactive. Neck: Supple without lymphadenopathy. Trachea midline. Chest: Right chest wall incision well approximated with sutures, no redness or drainage. No tenderness to palpation. Extremities: Normal skin color and turgor. Neurological: No focal deficits. Alert and oriented 3. - Labs CBC & Chem 7: 06/28/22 05:48 06/28/22 05:48 Labs: Abnormal Lab Results - Last 24 Hours (Table) 06/27/22 06/27/22 06/27/22 Range/Units 07:28 07:28 11:22 RBC 3.99 L (4.10-5.20) X 10*6/uL Hgb 11.0 L (12.0-15.0) g/dL Hct 37.1 L (37.2-46.3) % MCHC 29.6 L (32.0-37.0) g/dL Immature Gran # (0.00-0.04) X 10*3/uL Chloride 111 H (96-109) mmol/L BUN (9.0-27.0) mg/dL BUN/Creatinine Ratio (12.00-20.00) Ratio Glucose 133 H (70-110) mg/dL POC Glucose (mg/dL) 165 H (70-110) mg/dL 06/27/22 06/27/22 06/28/22 Range/Units 16:57 20:21 05:48 RBC (4.10-5.20) X 10*6/uL Hgb (12.0-15.0) g/dL Hct (37.2-46.3) % MCHC (32.0-37.0) g/dL Immature Gran # (0.00-0.04) X 10*3/uL Chloride (96-109) mmol/L BUN 8.2 L (9.0-27.0) mg/dL BUN/Creatinine Ratio 11.71 L (12.00-20.00) Ratio Glucose 149 H (70-110) mg/dL POC Glucose (mg/dL) 117 H 129 H (70-110) mg/dL 06/28/22 06/28/22 Range/Units 05:48 08:17 RBC 3.90 L (4.10-5.20) X 10*6/uL Hgb 10.8 L (12.0-15.0) g/dL Hct 36.1 L (37.2-46.3) % MCHC 29.9 L (32.0-37.0) g/dL Immature Gran # 0.05 H (0.00-0.04) X 10*3/uL Chloride (96-109) mmol/L BUN (9.0-27.0) mg/dL BUN/Creatinine Ratio (12.00-20.00) Ratio Glucose (70-110) mg/dL POC Glucose (mg/dL) 124 H (70-110) mg/dL Microbiology - Last 24 Hours (Table) 06/23/22 20:35 Blood Culture - Preliminary Blood No Growth after 96 hours 06/23/22 20:25 Blood Culture - Preliminary Blood No Growth after 96 hours 06/25/22 18:24 Gram Stain - Final Chest Wound Culture - Final Assessment and Plan Assessment: 1. 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 If recommendation is for a Mediport may need to be done as an outpatient with placement of PICC line at this time. Will await further recommendations from vascular surgeon. The impression and plan of care has been dictated as directed. I performed a history and examination of this patient, discussed the same with the dictator. I agree with the dictator's note ,documented as a scribe. Any additional findings or plans will be noted.
[2022-06-28] MEDS: ONDANSETRON 4 MG/2 ML VIAL IVP PRN (09:42)
[2022-06-28 11:01] LABS: Glucose,Whole Blood 128 mg/dL (70-110)
--- NOTE | 2022-06-28 12:07 | P.PN ---
Subjective Progress Note Date: 06/27/22 Principal diagnosis: Bacteremia and infected port 41-year-old female with a past medical history sniffing for diabetes mellitus DVT mitochondrial metabolism disorder thyroiditis in this patient who do have right IJ port that was placed on 02/10/[address] Kumar for IV fluids. Patient mention port has been accessed every week and the needle was changed to once a week last time the needle was changed there was some purulent drainage patient also been complaining of fever and chills patient did have blood cultures obtained which came back positive with the gram-positive cocci and the patient presented to hospital for further evaluation and treatment patient on presentation to the hospital was afebrile subsequently have low-grade fever of 99.2 F patient did have white count of 12.3 with a left shift kidney function has been normal liver enzymes are normal blood cultures from 8 2 are growing Staph epidermidis patient has been started on vancomycin infectious disease was consulted for further management of antibiotic therapy 06/26/2022 Patient is seen and evaluated in room at bedside; remains afebrile, the patient is breathing comfortably, the patient denies any chest pain or shortness of breath or cough no nausea no vomiting no abdominal pain or diarrhea patient with Staphylococcus epidermidis bacteremia source likely Mediport infection that the patient has for about 5 months now and the patient is complaining of some purulent drainage with concern for possible port infection. blood culture has been repeated and those are pending so far patient is status post removal of the port 06/25/2022. patient to continue with vancomycin pharmacy to dose while waiting for repeat culture to be finalize 06/27/2022 Patient is seen and evaluated in room at bedside; continues to be afebrile, the patient is breathing comfortably on room air, the patient denies any chest pain or shortness of breath or cough, Patient denies nausea no vomiting no abdominal pain or diarrhea patient with Staphylococcus epidermidis bacteremia source likely Mediport infection that the patient has for about 5 months now and the patient is complaining of some purulent drainage with concern for possible port infection. ---blood culture has been repeated and those are pending so far --patient is status post removal of the port 06/25/2022. -patient currently being treated with vancomycin pharmacy to dose, with the to be blood culture negative so far should be able to get a PICC line or a new port Objective - Vital Signs Vital signs: Vital Signs Temp 98.0 F 06/27/22 08:00 Pulse 79 06/27/22 08:00 Resp 17 06/27/22 08:00 BP 132/83 06/27/22 08:00 Pulse Ox 98 06/27/22 08:00 FiO2 Intake & Output 06/26/22 06/27/22 06/27/22 18:59 06:59 18:59 Intake Total 2660 120 Balance 2660 120 Intake: Intake, IV Titration 1500 Amount Sodium Chloride 0.9% 1, 1000 000 ml @ 100 mls/hr IV . Q10H JOSE Rx#:[id number] Vancomycin 1,750 mg In 500 Sodium Chloride 0.9% 500 ml 500 ml @ 167 mls/hr IVPB Q12H JOSE Rx#: [id number] Oral 1160 120 Other: Voiding Method Toilet # Voids 2 - Exam PHYSICAL EXAMINATION: GENERAL: The patient is alert and oriented x3, not in any acute distress. Well developed, well nourished. HEENT: Pupils are round and equally reacting to light. EOMI. No scleral icterus. No conjunctival pallor. Normocephalic, atraumatic. No pharyngeal erythema. No thyromegaly. CARDIOVASCULAR: S1 and S2 present. No murmurs, rubs, or gallops. PULMONARY: Chest is clear to auscultation, no wheezing or crackles. ABDOMEN: Soft, nontender, nondistended, normoactive bowel sounds. No palpable organomegaly. MUSCULOSKELETAL: No joint swelling or deformity. EXTREMITIES: No cyanosis, clubbing, or pedal edema. NEUROLOGICAL: Gross neurological examination did not reveal any focal deficits. SKIN: No rashes. - Labs CBC & Chem 7: 06/28/22 05:48 06/28/22 05:48 Labs: Abnormal Lab Results - Last 24 Hours (Table) 06/26/22 06/26/22 06/27/22 Range/Units 17:15 20:26 07:10 RBC (4.10-5.20) X 10*6/uL Hgb (12.0-15.0) g/dL Hct (37.2-46.3) % MCHC (32.0-37.0) g/dL Chloride (96-109) mmol/L Glucose (70-110) mg/dL POC Glucose (mg/dL) 126 H 111 H 115 H (70-110) mg/dL 06/27/22 06/27/22 06/27/22 Range/Units 07:28 07:28 11:22 RBC 3.99 L (4.10-5.20) X 10*6/uL Hgb 11.0 L (12.0-15.0) g/dL Hct 37.1 L (37.2-46.3) % MCHC 29.6 L (32.0-37.0) g/dL Chloride 111 H (96-109) mmol/L Glucose 133 H (70-110) mg/dL POC Glucose (mg/dL) 165 H (70-110) mg/dL Microbiology - Last 24 Hours (Table) 06/23/22 20:35 Blood Culture - Preliminary Blood No Growth after 72 hours 06/23/22 20:25 Blood Culture - Preliminary Blood No Growth after 72 hours 06/25/22 18:24 Gram Stain - Preliminary Chest Wound Culture - Preliminary Assessment and Plan Assessment: 1. Acute right port infection with staph epidermidis bacteremia 2. Asthma 3. Diabetes mellitus type 2 4. History of DVT 5. Gastroesophageal reflux disease 1patient with Staphylococcus epidermidis bacteremia source likely right IJ catheter that the patient has for about 5 months now and the patient is complaining of some purulent drainage with concern for possible pulmonary infection. 2blood culture has been repeated and those will be followed. 3patient will likely need removal of right IJ port In order to completely cure this infection. 4vancomycin pharmacy to dose target trough of 15 while watching kidney function and vancomycin trough closely.
--- NOTE | 2022-06-28 15:11 | P.PN ---
Subjective Progress Note Date: 06/28/22 Principal diagnosis: Bacteremia and infected port 41-year-old female with a past medical history sniffing for diabetes mellitus DVT mitochondrial metabolism disorder thyroiditis in this patient who do have right IJ port that was placed on 02/10/[address] Kumar for IV fluids. Patient mention port has been accessed every week and the needle was changed to once a week last time the needle was changed there was some purulent drainage patient also been complaining of fever and chills patient did have blood cultures obtained which came back positive with the gram-positive cocci and the patient presented to hospital for further evaluation and treatment patient on presentation to the hospital was afebrile subsequently have low-grade fever of 99.2 F patient did have white count of 12.3 with a left shift kidney function has been normal liver enzymes are normal blood cultures from 8 2 are growing Staph epidermidis patient has been started on vancomycin infectious disease was consulted for further management of antibiotic therapy 06/26/2022 Patient is seen and evaluated in room at bedside; remains afebrile, the patient is breathing comfortably, the patient denies any chest pain or shortness of breath or cough no nausea no vomiting no abdominal pain or diarrhea patient with Staphylococcus epidermidis bacteremia source likely Mediport infection that the patient has for about 5 months now and the patient is complaining of some purulent drainage with concern for possible port infection. blood culture has been repeated and those are pending so far patient is status post removal of the port 06/25/2022. patient to continue with vancomycin pharmacy to dose while waiting for repeat culture to be finalize 06/27/2022 Patient is seen and evaluated in room at bedside; continues to be afebrile, the patient is breathing comfortably on room air, the patient denies any chest pain or shortness of breath or cough, Patient denies nausea no vomiting no abdominal pain or diarrhea patient with Staphylococcus epidermidis bacteremia source likely Mediport infection that the patient has for about 5 months now and the patient is complaining of some purulent drainage with concern for possible port infection. ---blood culture has been repeated and those are pending so far --patient is status post removal of the port 06/25/2022. -patient currently being treated with vancomycin pharmacy to dose, with the to be blood culture negative so far should be able to get a PICC line or a new port 06/28/2022 Patient is seen and evaluated resting comfortably in bed; has any specific complaints Vital signs are reviewed temperature 98.4, pulse 70, respirations 16 and blood pressure 120/70 Patient remains on IV vancomycin for bacteremia related to infected port which has been removed; midline is in place; repeat blood cultures are ordered and pending ID to make final recommendations on discharge antibiotics once final results of repeat cultures is available Objective - Vital Signs Vital signs: Vital Signs Temp 98.4 F 06/28/22 08:00 Pulse 71 06/28/22 08:00 Resp 17 06/28/22 08:00 BP 117/76 06/28/22 08:00 Pulse Ox 96 06/28/22 08:00 FiO2 Intake & Output 06/27/22 06/28/22 06/28/22 18:59 06:59 18:59 Intake Total 480 Balance 480 Intake: Oral 480 Other: Voiding Method Toilet - Exam PHYSICAL EXAMINATION: GENERAL: The patient is alert and oriented x3, not in any acute distress. Well developed, well nourished. HEENT: Pupils are round and equally reacting to light. EOMI. No scleral icterus. No conjunctival pallor. Normocephalic, atraumatic. No pharyngeal erythema. No thyromegaly. CARDIOVASCULAR: S1 and S2 present. No murmurs, rubs, or gallops. PULMONARY: Chest is clear to auscultation, no wheezing or crackles. ABDOMEN: Soft, nontender, nondistended, normoactive bowel sounds. No palpable organomegaly. MUSCULOSKELETAL: No joint swelling or deformity. EXTREMITIES: No cyanosis, clubbing, or pedal edema. NEUROLOGICAL: Gross neurological examination did not reveal any focal deficits. SKIN: No rashes. - Labs CBC & Chem 7: 06/28/22 05:48 06/28/22 05:48 Labs: Abnormal Lab Results - Last 24 Hours (Table) 06/27/22 06/27/22 06/28/22 Range/Units 16:57 20:21 05:48 RBC (4.10-5.20) X 10*6/uL Hgb (12.0-15.0) g/dL Hct (37.2-46.3) % MCHC (32.0-37.0) g/dL Immature Gran # (0.00-0.04) X 10*3/uL BUN 8.2 L (9.0-27.0) mg/dL BUN/Creatinine Ratio 11.71 L (12.00-20.00) Ratio Glucose 149 H (70-110) mg/dL POC Glucose (mg/dL) 117 H 129 H (70-110) mg/dL 06/28/22 06/28/22 06/28/22 Range/Units 05:48 08:17 11:00 RBC 3.90 L (4.10-5.20) X 10*6/uL Hgb 10.8 L (12.0-15.0) g/dL Hct 36.1 L (37.2-46.3) % MCHC 29.9 L (32.0-37.0) g/dL Immature Gran # 0.05 H (0.00-0.04) X 10*3/uL BUN (9.0-27.0) mg/dL BUN/Creatinine Ratio (12.00-20.00) Ratio Glucose (70-110) mg/dL POC Glucose (mg/dL) 124 H 128 H (70-110) mg/dL Microbiology - Last 24 Hours (Table) 06/23/22 20:35 Blood Culture - Preliminary Blood No Growth after 96 hours 06/23/22 20:25 Blood Culture - Preliminary Blood No Growth after 96 hours 06/25/22 18:24 Gram Stain - Final Chest Wound Culture - Final Assessment and Plan Assessment: 1. Acute right port infection with staph epidermidis bacteremia 2. Asthma 3. Diabetes mellitus type 2 4. History of DVT 5. Gastroesophageal reflux disease 1patient with Staphylococcus epidermidis bacteremia source likely right IJ catheter that the patient has for about 5 months now and the patient is complaining of some purulent drainage with concern for possible pulmonary infection. 2blood culture has been repeated and those will be followed. 3patient will likely need removal of right IJ port In order to completely cure this infection. 4vancomycin pharmacy to dose target trough of 15 while watching kidney function and vancomycin trough closely.
[2022-06-28 17:26] LABS: Glucose,Whole Blood 113 mg/dL (70-110)
[2022-06-28 20:30] LABS: Glucose,Whole Blood 144 mg/dL (70-110)
[2022-06-28] MEDS: NON FORMULARY DRUG (Rimegepant Sulfate [Nurtec Odt] 75 MG Tablet) PO PRN (20:32)
[2022-06-28] MEDS: traZODone HCL 100 MG TAB PO SCH (21:55)
[2022-06-28] MEDS: NON FORMULARY DRUG (Brexpiprazole [Rexulti] 0.5 MG Tablet) PO SCH (21:56)
[2022-06-28] MEDS: EZETIMIBE 10 MG TAB PO SCH (21:57)
[2022-06-28] MEDS: TRIMETHOPRIM 100 MG TAB PO SCH (21:59)
[2022-06-28] MEDS: FENOFIBRATE 160 MG TAB PO SCH (22:00)
--- NOTE | 2022-06-28 23:16 | P.PN ---
Subjective Progress Note Date: 06/28/22 Principal diagnosis: Bacteremia and infected port Patient is a 41-year-old female with a mitochondrial disorder, and this patient who did have a multiple ports for hydration presenting to the hospital with drainage from the port and a positive blood culture, patient is scheduled for removal of the port 06/25/2022. On today's evaluation that is at 06/28/2022, the patient denies any fever or any chills, the patient is breathing comfortably on room air, the patient denies any chest pain or shortness of breath or cough, Patient denies nausea no vomiting no abdominal pain or diarrhea and is overall feeling better Objective - Vital Signs Vital signs: Vital Signs Temp 98.4 F 06/28/22 08:00 Pulse 71 06/28/22 08:00 Resp 17 06/28/22 08:00 BP 117/76 06/28/22 08:00 Pulse Ox 96 06/28/22 08:00 FiO2 Intake & Output 06/27/22 06/28/22 06/28/22 18:59 06:59 18:59 Intake Total 480 Balance 480 Intake: Oral 480 Other: Voiding Method Toilet - Exam GENERAL DESCRIPTION: Middle-aged female lying in bed in no distress RESPIRATORY SYSTEM: Unlabored breathing , decreased breath sounds at bases HEART: S1 S2 regular rate and rhythm , ABDOMEN: Soft , no tenderness EXTREMITIES: No edema feet - Labs CBC & Chem 7: 06/28/22 05:48 06/28/22 05:48 Labs: Abnormal Lab Results - Last 24 Hours (Table) 06/27/22 06/27/22 06/28/22 Range/Units 16:57 20:21 05:48 RBC (4.10-5.20) X 10*6/uL Hgb (12.0-15.0) g/dL Hct (37.2-46.3) % MCHC (32.0-37.0) g/dL Immature Gran # (0.00-0.04) X 10*3/uL BUN 8.2 L (9.0-27.0) mg/dL BUN/Creatinine Ratio 11.71 L (12.00-20.00) Ratio Glucose 149 H (70-110) mg/dL POC Glucose (mg/dL) 117 H 129 H (70-110) mg/dL 0806/28/22 06/28/22 Range/Units 05:48 08:17 11:00 RBC 3.90 L (4.10-5.20) X 10*6/uL Hgb 10.8 L (12.0-15.0) g/dL Hct 36.1 L (37.2-46.3) % MCHC 29.9 L (32.0-37.0) g/dL Immature Gran # 0.05 H (0.00-0.04) X 10*3/uL BUN (9.0-27.0) mg/dL BUN/Creatinine Ratio (12.00-20.00) Ratio Glucose (70-110) mg/dL POC Glucose (mg/dL) 124 H 128 H (70-110) mg/dL Microbiology - Last 24 Hours (Table) 06/23/22 20:35 Blood Culture - Preliminary Blood No Growth after 96 hours 06/23/22 20:25 Blood Culture - Preliminary Blood No Growth after 96 hours 06/25/22 18:24 Gram Stain - Final Chest Wound Culture - Final Assessment and Plan (1) Bacteremia Current Visit: Yes Status: Acute Code(s): R78.81 - BACTEREMIA SNOMED Code(s): 2806434 Plan: 1patient with Staphylococcus epidermidis bacteremia source likely Mediport infection that the patient has for about 5 months now and the patient is complaining of some purulent drainage with concern for possible port infection. 2blood culture has been repeated and those cultures are so far negative 3patient is status post removal of the port 06/25/2022. 4patient to continue with vancomycin pharmacy to dose, she'll be with the PICC line tomorrow. Continue with antibiotics and nutrition and possible placement of the port down the road Time with Patient: Less than 30
[2022-06-29] MEDS: LEVOTHYROXINE 125 MCG TAB PO SCH (06:18)
[2022-06-29] MEDS: VANCOMYCIN 1,750 MG in SODIUM CHLORIDE 0.9% 500 ML 500 ML IVPB SCH ×2 (06:18→17:15)
[2022-06-29] MEDS: LEVOTHYROXINE 100 MCG TAB PO SCH (06:18)
[2022-06-29] MEDS: SODIUM CHLORIDE 0.9% 1,000 ML IV SCH ×2 (06:20→17:15)
[2022-06-29 07:00] LABS: Glucose,Whole Blood 148 mg/dL (70-110)
[2022-06-29] MEDS: BREO ELLIPTA INHALATION SCH (08:24)
[2022-06-29] MEDS: GABAPENTIN 400 MG CAP PO SCH ×2 (08:26→17:14)
[2022-06-29] MEDS: MELOXICAM 7.5 MG TAB PO SCH (08:26)
[2022-06-29] MEDS: INSULIN DETEMIR (LEVEMIR) 100 UNIT/ML SYR SQ SCH (08:26)
[2022-06-29] MEDS: polyethylene glycoL 3350 17 GM POWD.PACK PO SCH (08:26)
[2022-06-29] MEDS: cloNIDine HCL 0.2 MG TAB PO SCH (08:27)
[2022-06-29] MEDS: CYANOCOBALAMIN 500 MCG TAB PO SCH (08:27)
[2022-06-29] MEDS: BACLOFEN 10 MG TAB PO SCH ×3 (08:27→17:14)
[2022-06-29] MEDS: LORATADINE 10 MG TAB PO SCH (08:27)
[2022-06-29] MEDS: LITHIUM CARBONATE ER 450 MG TABLET.ER PO SCH (08:27)
[2022-06-29] MEDS: METOPROLOL SUCCINATE (ER) 100 MG TAB.ER.24H PO SCH (08:27)
[2022-06-29] MEDS: busPIRone HCl 10 MG TAB PO SCH (08:28)
[2022-06-29] MEDS: NON FORMULARY DRUG (Mirabegron [Myrbetriq] 25 MG Tab.Er.24h) PO SCH (08:31)
[2022-06-29] MEDS: DEXILANT 60 MG PO SCH (08:32)
[2022-06-29] MEDS: FLUTICASONE 50MCG/SPRAY NASAL 16GM EA NOSTRIL SCH (08:33)
[2022-06-29] MEDS: NON FORMULARY DRUG (Methenamine Hippurate [Methenamine Hippurate] 1 GM Tablet) PO SCH (08:33)
[2022-06-29] MEDS: DEXMETHYLPHENIDATE HCL 5 MG PO SCH (08:33)
[2022-06-29] MEDS: SUCRALFATE 1 GM TAB PO SCH (08:34)
[2022-06-29 11:14] LABS: Glucose,Whole Blood 136 mg/dL (70-110)
[2022-06-29] MEDS ORDERED: LIDOCAINE 1% INJ 10MG/ML (5 ML VIAL-PF) SQ ONE (13:31)
[2022-06-29 14:21] VITALS: BP 123/86; PULSE 71; RESP 18; TEMP 99
--- NOTE | 2022-06-29 14:44 | IR ---
PICC LINE PLACEMENT: HISTORY: Infection requiring long-term antibiotic therapy PROCEDURE: fluoroscopic guidance of PICC line placement. COMPLICATIONS: None ANESTHESIA: 1. 1% Lidocaine locally. FINDINGS/TECHNIQUE: The procedure was explained to the patient. The risks, complications, benefits and alternatives were discussed and any questions were answered. Informed consent was obtained. The patient was placed supine on the fluoroscopic table and prepped and draped in the usual sterile fash ion. Pre-existing midline is present within the right cephalic vein there was placement of a 0.018 gu idewire. The vein is patent. A 4-F sheath was placed over the guidewire. The guidewire and dilator were removed and a 4-F. PICC line was placed through the sheath with the tip at the level of the SVC . The sheath was removed, the catheter was flushed and sutured into position. The patient was stabl e throughout the procedure and remained stable upon discharge from the Department of Radiology. The vein puncture was patent under ultrasound. A esteves scale image was obtained to document patency of the vein punctured. All elements of the maximal barrier technique were utilized. FLUOROSCOPY TIME: 0.4 minutes and one images submitted IMPRESSION: Successful PICC line placement under fluoroscopic guidance.
[2022-06-30] MEDS ORDERED: VANCOMYCIN TROUGH DUE 1 EACH MISC MISCELLANE ONE (05:00)
--- NOTE | 2022-06-30 17:06 | P.DS ---
Providers Date of admission: 06/23/22 19:34 Attending physician: Adriana Douglas Consults: 06/23/22 19:34 Consult Physician Routine Consulting Provider: Juliane Llanes Consult Reason/Comments: Positive blood culture Do you want consulting provider notified?: Yes 06/24/22 11:58 Consult Physician Urgent Consulting Provider: Erna Kumar Consult Reason/Comments: mediport infection/pos blood cultures Do you want consulting provider notified?: Yes Primary care physician: Julissa Montano Hospital Course: Diagnosis 1. Acute right port infection with staph epidermidis bacteremia 2. Asthma 3. Diabetes mellitus type 2 4. History of DVT 5. Gastroesophageal reflux disease Full Code Discharge Disposition Patient is stable for discharge. Right IJ port has been removed. Patient will be resumed on anticoagulation. Most recent blood culture negative. Patient is discharged on IV vancomycin through PICC line. Follow up with PCP Dr Arnoldo Montano in 1 to 2 days, follow up with vascular services, follow up with Dr Llanes. Patient has homecare in place. Repeat labs in 1 week. Hospital course Is a 41-year-old female with medical history significant for asthma, diabetes mellitus, DVT, GERD, sleep apnea, thyroid. 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 Patient presents sent in from home care nursing for positive blood culture found outpatient with gram positive cocci patient also reports low grade fever. She does have a right IJ Port in place for IV fluid and IV zofran. Patient presents with white count 12.3. She is admitted for bacteremia and infectious disease was consulted. She was started on empiric antibiotic coverage with vancomycin. Patient has remained afebrile this admission. Vascular services was consulted and patient had medi port removed on 06/25/2022. Follow up blood and mediport cultures are negative. Patient received PICC line prior to discharge and will complete outpatient antibiotic therapy with vancomycin and will discharge home with homecare services. Xarelto was resumed on discharge. 06/29/2022 Patient evaluated today resting in bed. No acute events overnight. She is p ending PICC line placement and will discharge home after. No shortness of breath, no chest pain noted. She has been receiving usual home medications with no changes recommended on discharge. Most recent labs showing a white count of 7.93, hemoglobin 10.8, sodium 140, potassium 4.2, BUN 8.2, creatinine 0.7, blood glucose in the 130s. Urine hCG was negative. Lungs are clear, S1-S2 auscultated. Vital signs today 98.4, heart rate 70, blood pressure 128/70, 99% room air. Patient is discharged home with homecare services. Additional follow up recommendations as above. Please see medication reconciliation for list of current medication. Thank you for allowing us to participate in care of this patient. Total time taken for discharge planning greater than 35 minutes. The impression and plan of care has been dictated by Sylwia Johnson, Nurse Practitioner as directed. Dr. Pascual MD I have performed a history and physical examination and medical decision making of this patient, discussed the same with the dictator, and agree with the dictators assessment and plan as written, documented as a scribe. Based on total visit time, I have performed more than 50% of this visit. Patient Condition at Discharge: Stable Plan - Discharge Summary New Discharge Prescriptions: New Acetaminophen Tab [Tylenol] 650 mg PO Q6HR PRN tab PRN Reason: Mild Pain Or Fever > 100.5 Continue Levothyroxine Sodium [Synthroid] 100 mcg PO DAILY Methenamine Hippurate 1 gm PO BID Mirabegron [Myrbetriq] 25 mg PO DAILY Fenofibrate [Lofibra] 160 mg PO HS tab Gabapentin [Neurontin] 400 mg PO TID cap Trimethoprim [Trimpex] 100 mg PO HS tab Rivaroxaban [Xarelto] 20 mg PO HS tab Promethazine [Phenergan] 25 mg PO Q6H PRN PRN Reason: Nausea Levothyroxine Sodium [Synthroid] 125 mcg PO MOTUWETH Albuterol Inhaler [Ventolin Hfa Inhaler] 2 puff INHALATION RT-Q2H PRN PRN Reason: Shortness Of Breath Dexlansoprazole [Dexilant] 60 mg PO DAILY Galcanezumab-Gnlm [Emgality Pen] 120 mg SQ Q30D Meloxicam [Mobic] 15 mg PO DAILY Rizatriptan Benzoate [Rizatriptan] 5 mg PO BID PRN PRN Reason: Migraine Headache Sodium Chloride 0.9% Iv 1,500 ml IV DAILY Brexpiprazole [Rexulti] 0.5 mg PO HS Baclofen [Lioresal] 20 mg PO QID polyethylene glycoL 3350 [Miralax] 17 gm PO DAILY Metoprolol Succinate (ER) [Toprol XL] 100 mg PO DAILY HYDROcodone/APAP 5-325MG [[place] 5-325] 1 - 2 tab PO Q8HR PRN PRN Reason: Pain [place] Carbonate [[place] Carbonate ER] 300 mg PO TID Levocetirizine Dihydrochloride [Xyzal] 5 mg PO BID Phenazopyridine HCl 95 mg PO DAILY PRN PRN Reason: URINARY PAIN cloNIDine HCL [Kapvay] 0.2 mg PO BID Prochlorperazine [Compro] 25 mg RECTAL Q8H PRN PRN Reason: Nausea Sucralfate [Carafate] 1 gm PO BID PRN PRN Reason: Gi Upset Sucralfate [Carafate] 1 gm PO DAILY modafiniL [Provigil] 200 - 400 mg PO DAILY PRN PRN Reason: sleepiness Semaglutide [Ozempic] 1 mg SQ FR Lidocaine 4% [place] 1 spray TOPICAL Q8H PRN PRN Reason: Pain Rimege[place] Sulfate [Nurtec Odt] 75 mg PO DAILY PRN PRN Reason: Migraine Headache Ezetimibe [Zetia] 10 mg PO HS Cyanocobalamin (Vitamin B-12) [Vitamin B-12] 1,000 mcg PO DAILY busPIRone HCL [Buspar] 30 mg PO BID Fluticasone/Vilanterol [Breo Ellipta 100-25 Mcg Inhaler] 1 puff INHALATION RT-DAILY Ondansetron Odt [Zofran ODT] 8 mg PO TID PRN PRN Reason: Nausea Metoclopramide [Reglan] 10 mg PO ACHS PRN PRN Reason: Nausea Insulin Glargine,Hum.rec.anlog [Lantus Solostar Pen] 30 unit SQ BID Fluticasone Nasal [place] [Flonase Nasal [place]] 1 spray EA NOSTRIL DAILY traZODone HCL 200 mg PO HS Insulin Aspart (Niacinamide) [Fiasp 100 Unit/ml Flextouch Pen] See Protocol SQ ACHS PRN PRN Reason: HIGH BLOOD SUGAR Dexmethylphenidate HCl [Focalin] 5 mg PO DAILY Ammonium Lactate Lotion [Lac-Hydrin 12% Lotion] 1 applic TOPICAL BID PRN PRN Reason: Dry Skin Butalbit/Acetamin/Caff/Codeine [Butal/APAP/Caff/Cod 29-896-54-30MG] 1 cap PO Q8H PRN PRN Reason: Migraine Headache tiZANidine HCL 2 mg PO DAILY PRN PRN Reason: Muscle Pain Dicyclomine HCl 20 mg PO Q6H PRN PRN Reason: Gi Upset Ketoconazole 2% Shampoo [Nizoral] 1 applic TOPICAL DIRECTED PRN PRN Reason: SCALP Meclizine HCl [Antivert] 25 mg PO TID PRN PRN Reason: Vertigo Ondansetron 4mg/2ml Injection 8 mg IVP Q8H PRN PRN Reason: Nausea Discontinued Heparin Sodium,Porcine [Heparin Sodium] 1 dose IV DAILY PRN PRN Reason: AFTER INFUSION AND ZOFRAN DOSE Discharge Medication List Levothyroxine Sodium [Synthroid] 100 mcg PO DAILY 01/16/19 [History] Methenamine Hippurate 1 gm PO BID 07/12/19 [History] Mirabegron [Myrbetriq] 25 mg PO DAILY 10/08/19 [History] Fenofibrate [Lofibra] 160 mg PO HS tab 10/17/19 [Rx] Gabapentin [Neurontin] 400 mg PO TID cap 10/17/19 [Rx] Rivaroxaban [Xarelto] 20 mg PO HS tab 10/17/19 [Rx] Trimethoprim [Trimpex] 100 mg PO HS tab 10/17/19 [Rx] Promethazine [Phenergan] 25 mg PO Q6H PRN 11/30/19 [History] Levothyroxine Sodium [Synthroid] 125 mcg PO MOTUWETH 12/28/19 [History] Albuterol Inhaler [Ventolin Hfa Inhaler] 2 puff INHALATION RT-Q2H PRN 09/19/20 [History] Dexlansoprazole [Dexilant] 60 mg PO DAILY 09/19/20 [History] Galcanezumab-Gnlm [Emgality Pen] 120 mg SQ Q30D 09/19/20 [History] Meloxicam [Mobic] 15 mg PO DAILY 09/19/20 [History] Rizatriptan Benzoate [Rizatriptan] 5 mg PO BID PRN 09/19/20 [History] Sodium Chloride 0.9% Iv 1,500 ml IV DAILY 09/19/20 [History] Brexpiprazole [Rexulti] 0.5 mg PO HS 06/01/21 [History] Cyanocobalamin (Vitamin B-12) [Vitamin B-12] 1,000 mcg PO DAILY 06/01/21 [History] Ezetimibe [Zetia] 10 mg PO HS 06/01/21 [History] busPIRone HCL [Buspar] 30 mg PO BID 06/01/21 [History] Baclofen [Lioresal] 20 mg PO QID 06/02/21 [History] Fluticasone/Vilanterol [Breo Ellipta 100-25 Mcg Inhaler] 1 puff INHALATION RT- DAILY 09/27/21 [History] Ondansetron Odt [Zofran ODT] 8 mg PO TID PRN 09/27/21 [History] polyethylene glycoL 3350 [Miralax] 17 gm PO DAILY 09/27/21 [History] Metoprolol Succinate (ER) [Toprol XL] 100 mg PO DAILY 02/05/22 [History] Dexmethylphenidate HCl [Focalin] 5 mg PO DAILY 04/26/22 [History] Fluticasone Nasal [place] [Flonase Nasal [place]] 1 spray EA NOSTRIL DAILY 04/26/22 [History] HYDROcodone/APAP 5-325MG [[place] 5-325] 1 - 2 tab PO Q8HR PRN 04/26/22 [History] Insulin Aspart (Niacinamide) [Fiasp 100 Unit/ml Flextouch Pen] See Protocol SQ ACHS PRN 04/26/22 [History] Insulin Glargine,Hum.rec.anlog [Lantus Solostar Pen] 30 unit SQ BID 04/26/22 [History] Levocetirizine Dihydrochloride [Xyzal] 5 mg PO BID 04/26/22 [History] [place] Carbonate [[place] Carbonate ER] 300 mg PO TID 04/26/22 [History] Metoclopramide [Reglan] 10 mg PO ACHS PRN 04/26/22 [History] traZODone HCL 200 mg PO HS 04/26/22 [History] Ammonium Lactate Lotion [Lac-Hydrin 12% Lotion] 1 applic TOPICAL BID PRN 06/23/22 [History] Butalbit/Acetamin/Caff/Codeine [Butal/APAP/Caff/Cod 29-384-56-30MG] 1 cap PO Q8H PRN 06/23/22 [History] Dicyclomine HCl 20 mg PO Q6H PRN 06/23/22 [History] Ketoconazole 2% Shampoo [Nizoral] 1 applic TOPICAL DIRECTED PRN 06/23/22 [History] Lidocaine 4% [place] 1 spray TOPICAL Q8H PRN 06/23/22 [History] Meclizine HCl [Antivert] 25 mg PO TID PRN 06/23/22 [History] Ondansetron 4mg/2ml Injection 8 mg IVP Q8H PRN 06/23/22 [History] Phenazopyridine HCl 95 mg PO DAILY PRN 06/23/22 [History] Prochlorperazine [Compro] 25 mg RECTAL Q8H PRN 06/23/22 [History] Rimegepant Sulfate [Nurtec Odt] 75 mg PO DAILY PRN 06/23/22 [History] Semaglutide [Ozempic] 1 mg SQ FR 06/23/22 [History] Sucralfate [Carafate] 1 gm PO BID PRN 06/23/22 [History] Sucralfate [Carafate] 1 gm PO DAILY 06/23/22 [History] cloNIDine HCL [Kapvay] 0.2 mg PO BID 06/23/22 [History] modafiniL [Provigil] 200 - 400 mg PO DAILY PRN 06/23/22 [History] tiZANidine HCL 2 mg PO DAILY PRN 06/23/22 [History] Acetaminophen Tab [Tylenol] 650 mg PO Q6HR PRN tab 06/29/22 [Rx] Follow up Appointment(s)/Referral(s): Julissa Montano III, MD [Primary Care Provider] - 07/01/22 8:30 am Erna Kumar DO [STAFF PHYSICIAN] - 2 Weeks (Please call the office to arrange follow up appointment - office closed at time of discharge) [facility], [NON-STAFF] - As Needed [facility], [REFERRING] - As Needed ([facility] will deliver IV Vanco tonight between 6-8p) Juliane Llanes MD [STAFF PHYSICIAN] - 1 Week (please call office to make an appointment - office closed at time of discharge) Ambulatory/Diagnostic Orders: Basic Metabolic Panel [LAB.AMB] Time Frame: 1 Week, Location: None Selected Activity/Diet/Wound Care/Special Instructions: Patient discharged home with PICC line and will continue on IV vancomycin therapy Discharge Disposition: HOME WITH HOME HEALTH SERVICES
== END 2022-06-29 17:27 | disposition home health service (06) | DRG 315 ==
LOC: EC 17:31 → 4SSUR 19:34
PROVIDERS: ADMIT Hospitalist; ATTEND Hospitalist
PROC: 0JPT0WZ Removal of Totally Implantable Vascular Access Device from Trunk Subcutaneous Tissue and Fascia, Open Approach (ICD-10-PCS; principal; 2022-06-25 07:30)
PROC: 02HV33Z Insertion of Infusion Device into Superior Vena Cava, Percutaneous Approach (ICD-10-PCS; 2022-06-29)
DX: T80.211A Bloodstream infection due to central venous catheter, initial encounter (principal); D68.62 Lupus anticoagulant syndrome; E88.40 Mitochondrial metabolism disorder, unspecified; Z68.41 Body mass index [BMI] 40.0-44.9, adult; Q21.1 Atrial septal defect; R78.81 Bacteremia; E11.43 Type 2 diabetes mellitus with diabetic autonomic (poly)neuropathy; K31.84 Gastroparesis; K21.9 Gastro-esophageal reflux disease without esophagitis; E06.3 Autoimmune thyroiditis; B95.7 Other staphylococcus as the cause of diseases classified elsewhere; E66.9 Obesity, unspecified; G47.33 Obstructive sleep apnea (adult) (pediatric); J45.909 Unspecified asthma, uncomplicated; E11.40 Type 2 diabetes mellitus with diabetic neuropathy, unspecified; G90.1 Familial dysautonomia [Riley-Day]; G93.2 Benign intracranial hypertension; F41.9 Anxiety disorder, unspecified; F31.9 Bipolar disorder, unspecified; E28.2 Polycystic ovarian syndrome; N31.9 Neuromuscular dysfunction of bladder, unspecified; N39.3 Stress incontinence (female) (male); G47.419 Narcolepsy without cataplexy; I89.0 Lymphedema, not elsewhere classified; D51.0 Vitamin B12 deficiency anemia due to intrinsic factor deficiency; Z86.718 Personal history of other venous thrombosis and embolism; Z79.01 Long term (current) use of anticoagulants; Z86.73 Personal history of transient ischemic attack (TIA), and cerebral infarction without residual deficits; Z79.1 Long term (current) use of non-steroidal anti-inflammatories (NSAID); Z79.4 Long term (current) use of insulin; Z79.890 Hormone replacement therapy; Z79.899 Other long term (current) drug therapy; Z99.3 Dependence on wheelchair; Z86.018 Personal history of other benign neoplasm; Z87.440 Personal history of urinary (tract) infections; Z86.14 Personal history of Methicillin resistant Staphylococcus aureus infection; Z88.1 Allergy status to other antibiotic agents; Z88.2 Allergy status to sulfonamides; Z88.8 Allergy status to other drugs, medicaments and biological substances
CPT/HCPCS: 36410; 36573; 76937; 80048; 80053; 80202; 81025; 82565; 83605; 85025; 87040; 87070; 87075; 87205; 94640; 96365; 96366; 99284

== ENCOUNTER 2022-08-21 08:38 | Emergency (ER) | payer MEDICARE, OTHER ==
--- NOTE | 2022-08-21 09:01 | ED ---
Recheck HPI - General Chief Complaint: Recheck/Abnormal Lab/Rx Stated Complaint: Sent by PCP/Pic Line Time Seen by Provider: 08/21/22 08:43 Source: patient, RN notes reviewed Mode of arrival: wheelchair Limitations: physical limitation - History of Present Illness Initial Comments: This is a 42-year-old female who presents to the emergency department with concerns associated with her PICC line. She had a PICC line placed in June of this year in order to continue receiving IV antibiotics secondary to an infected IJ port. She has not been on antibiotics since June, however the PICC line has remained in place so the patient can receive daily IV fluids and nausea medication, as she has multiple comorbidities and difficulties with blood draws. She saw Dr. Montano, her PCP yesterday, who was concerned about an infection or blood clot in the arm. She has had redness and swelling around the PICC line for the last couple of days. He ordered a CBC, and the patient states that her white count was higher than normal. Also states that she had the dressing around the PICC line changed yesterday, and she noticed more drainage than normal. The drainage is described as being yellow. Also states that she has been feeling unwell for the last couple of days. She did have COVID 2 weeks ago, but states that she seemed to fully recover from that and now feels nauseous. Denies any fevers, chills, sore throat, cough, dyspnea, chest pain, palpitations, abdominal pain, vomiting, diarrhea, back pain, or headaches. MD Complaint: other (Problem with PICC line) Onset/Timin -: days(s) Symptoms Since Prior Visit: worsening swelling, worsening redness Associated Symptoms: nausea - Related Data Home Medications Medication Instructions Recorded Confirmed Levothyroxine Sodium [Synthroid] 100 mcg PO DAILY 01/16/19 06/23/22 Methenamine Hippurate 1 gm PO BID 07/12/19 06/23/22 Mirabegron [Myrbetriq] 25 mg PO DAILY 10/08/19 06/23/22 Promethazine [Phenergan] 25 mg PO Q6H PRN 11/30/19 06/23/22 Levothyroxine Sodium [Synthroid] 125 mcg PO MOTUWETH 12/28/19 06/23/22 Albuterol Inhaler [Ventolin Hfa 2 puff INHALATION RT-Q2H PRN 09/19/20 06/23/22 Inhaler] Dexlansoprazole [Dexilant] 60 mg PO DAILY 09/19/20 06/23/22 Galcanezumab-Gnlm [Emgality Pen] 120 mg SQ Q30D 09/19/20 06/23/22 Meloxicam [Mobic] 15 mg PO DAILY 09/19/20 06/23/22 Rizatriptan Benzoate [Rizatriptan] 5 mg PO BID PRN 09/19/20 06/23/22 Sodium Chloride 0.9% Iv 1,500 ml IV DAILY 09/19/20 06/23/22 Brexpiprazole [Rexulti] 0.5 mg PO HS 06/01/21 06/23/22 Cyanocobalamin (Vitamin B-12) 1,000 mcg PO DAILY 06/01/21 06/23/22 [Vitamin B-12] Ezetimibe [Zetia] 10 mg PO HS 06/01/21 06/23/22 busPIRone HCL [Buspar] 30 mg PO BID 06/01/21 06/23/22 Baclofen [Lioresal] 20 mg PO QID 06/02/21 06/23/22 Fluticasone/Vilanterol [Breo 1 puff INHALATION RT-DAILY 09/27/21 06/23/22 Ellipta 100-25 Mcg Inhaler] Ondansetron Odt [Zofran ODT] 8 mg PO TID PRN 09/27/21 06/23/22 polyethylene glycoL 3350 [Miralax] 17 gm PO DAILY 09/27/21 06/23/22 Metoprolol Succinate (ER) [Toprol 100 mg PO DAILY 02/05/22 06/23/22 XL] Dexmethylphenidate HCl [Focalin] 5 mg PO DAILY 04/26/22 06/23/22 Fluticasone Nasal [place] [Flonase 1 spray EA NOSTRIL DAILY 04/26/22 06/23/22 Nasal [place]] HYDROcodone/APAP 5-325MG [Heath 1 - 2 tab PO Q8HR PRN 04/26/22 06/23/22 5-325] Insulin Aspart (Niacinamide) See Protocol SQ ACHS PRN 04/26/22 06/23/22 [Fiasp 100 Unit/ml Flextouch Pen] Insulin Glargine,Hum.rec.anlog 30 unit SQ BID 04/26/22 06/23/22 [Lantus Solostar Pen] Levocetirizine Dihydrochloride 5 mg PO BID 04/26/22 06/23/22 [Xyzal] Penrose Carbonate [Penrose 300 mg PO TID 04/26/22 06/23/22 Carbonate ER] Metoclopramide [Reglan] 10 mg PO ACHS PRN 04/26/22 06/23/22 traZODone HCL 200 mg PO HS 04/26/22 06/23/22 Ammonium Lactate Lotion 1 applic TOPICAL BID PRN 06/23/22 06/23/22 [Lac-Hydrin 12% Lotion] Butalbit/Acetamin/Caff/Codeine 1 cap PO Q8H PRN 06/23/22 06/23/22 [Butal/APAP/Caff/Cod 58-373-08-30MG] Dicyclomine HCl 20 mg PO Q6H PRN 06/23/22 06/23/22 Ketoconazole 2% Shampoo [Nizoral] 1 applic TOPICAL DIRECTED PRN 06/23/22 Lidocaine 4% [place] 1 spray TOPICAL Q8H PRN 06/23/22 06/23/22 Meclizine HCl [Antivert] 25 mg PO TID PRN 06/23/22 06/23/22 Ondansetron 4mg/2ml Injection 8 mg IVP Q8H PRN 06/23/22 06/23/22 Phenazopyridine HCl 95 mg PO DAILY PRN 06/23/22 06/23/22 Prochlorperazine [Compro] 25 mg RECTAL Q8H PRN 06/23/22 06/23/22 Rimegepant Sulfate [Nurtec Odt] 75 mg PO DAILY PRN 06/23/22 06/23/22 Semaglutide [Ozempic] 1 mg SQ FR 06/23/22 06/23/22 Sucralfate [Carafate] 1 gm PO BID PRN 06/23/22 06/23/22 Sucralfate [Carafate] 1 gm PO DAILY 06/23/22 06/23/22 cloNIDine HCL [Kapvay] 0.2 mg PO BID 06/23/22 06/23/22 modafiniL [Provigil] 200 - 400 mg PO DAILY PRN 06/23/22 06/23/22 tiZANidine HCL 2 mg PO DAILY PRN 06/23/22 06/23/22 Previous Rx's Medication Instructions Recorded Fenofibrate [Lofibra] 160 mg PO HS tab 10/17/19 Gabapentin [Neurontin] 400 mg PO TID cap 10/17/19 Rivaroxaban [Xarelto] 20 mg PO HS tab 10/17/19 Trimethoprim [Trimpex] 100 mg PO HS tab 10/17/19 Acetaminophen Tab [Tylenol] 650 mg PO Q6HR PRN tab 06/29/22 cefUROXime axetiL [Ceftin] 500 mg PO BID 7 Days #14 tab 08/21/22 Allergies Allergy/AdvReac Type Severity Reaction Status Date / Time peanut oil Allergy Severe Nausea & Verified 08/21/22 08:46 Vomiting,itching barium sulfate Allergy Anaphylaxis Verified 08/21/22 08:46 doxepin [Doxepin] Allergy Anaphylaxis Verified 08/21/22 08:46 ephedrine Allergy Chest Verified 08/21/22 08:46 Pain/tachycardia ertapenem [From Invanz] Allergy Rash/Hives- Verified 08/21/22 08:46 like a chemical burn peanut Allergy Nausea & Verified 08/21/22 08:46 Vomiting/itching pseudoephedrine Allergy Chest Pain Verified 08/21/22 08:46 Sulfa (Sulfonamide Allergy Nausea & Verified 08/21/22 08:46 Antibiotics) Vomiting, DEHYDRATION sumatriptan [From Imitrex] Allergy affects Verified 08/21/22 08:46 vision-unable to see for hrs. doxycycline AdvReac Nausea & Verified 08/21/22 08:46 Vomiting & Diarrhea pseudoephedrine HCl AdvReac chest Verified 08/21/22 08:46 [From Sudafed] pain/tachycardia sulfamethoxazole AdvReac Nausea & Verified 08/21/22 08:46 [From Bactrim] Vomiting Review of Systems ROS Statement: Those systems with pertinent positive or pertinent negative responses have been documented in the HPI. ROS Other: All systems not noted in ROS Statement are negative. Past Medical History Past Medical History: Asthma, CVA/TIA, Diabetes Mellitus, Deep Vein Thrombosis (DVT), GERD/Reflux, Neurologic Disorder, Sleep Apnea/CPAP/BIPAP, Syncope, Thyroid Disorder Additional Past Medical History / Comment(s): Patient states recent low grade fevers Dr thinks may be realted to blood clot in port causing infection. States port is not working right. Mitochondrial metabolism disorder. Port a cath right chest-currently not working. Stroke like episode d/t mitochondrial disease, Dysautonomia, idiopathic intracranial HTN, Lupus, Emily's Thyroiditis. Lymphedema left arm d/t DVTs, avoid use of left arm for BP, IV, blood draws. Vtach, pituitary microadenoma, patent foramen ovale, narcolepsy, gastropareis, hx orthostatic hypotension/syncope, migraines with hemiplegia, pernicious anemia, polycystic ovarian syndrome, neuropathy bilateral legs/feet/arms, neurogenic bladder with UTI's, stress incontinence, uses wheelchair, able to transfer and walk few steps, sleep apnea-has not received machine yet, lupus anticoagulation syndrome. History of Any Multi-Drug Resistant Organisms: ESBL, MRSA Date of last positivie culture/infection: 03/09/17 MRSA/ 05/17/18 ESBL MDRO Source:: MRSA LEFT ARM,/ESBL URINE [facility]OLI Past Surgical History: Cholecystectomy, Uterine Ablation Additional Past Surgical History / Comment(s): Colonscopy/EGD, GERSON, PORT-A -CATH INSERTION X3. Past Anesthesia/Blood Transfusion Reactions: Previous Problems w/ Anesthesia, Motion Sickness Additional Past Anesthesia/Blood Transfusion Reaction / Comment(s): Patient states difficult to sedate. Past Psychological History: Anxiety, Bipolar, Depression Smoking Status: Never smoker Past Alcohol Use History: None Reported Past Drug Use History: None Reported - Past Family History Brother(s) Family Medical History: Diabetes Mellitus, Hyperlipidemia, Hypertension Additional Family Medical History / Comment(s): Patient states she has 1 brother with no major medical problems. Father History Unknown: Yes Family Medical History: Diabetes Mellitus, Hyperlipidemia, Hypertension Mother Family Medical History: CVA/TIA, Diabetes Mellitus, Deep Vein Thrombosis (DVT) Additional Family Medical History / Comment(s): Antiphospholipid antibody syndrome, Lupus, dementia. General Exam Limitations: physical limitation General appearance: alert, in no apparent distress Head exam: Present: atraumatic, normocephalic, normal inspection Respiratory exam: Present: normal lung sounds bilaterally. Absent: respiratory distress, wheezes, rales, rhonchi, stridor Cardiovascular Exam: Present: regular rate, normal rhythm, normal heart sounds. Absent: systolic murmur, diastolic murmur, rubs, gallop, clicks Extremities exam: Present: other (PICC line to the right upper extremity in place with surrounding erythema, swelling, and tenderness.) Neurological exam: Present: alert, oriented X3, CN II-XII intact Psychiatric exam: Present: normal affect, normal mood Course Vital Signs 08/21/22 08/21/22 08/21/22 08:44 10:35 11:19 Temperature 98.7 F 98.6 F Pulse Rate 110 H 99 95 Respiratory 20 18 18 Rate Blood Pressure 156/109 119/87 120/65 O2 Sat by Pulse 98 97 98 Oximetry Medical Decision Making - Medical Decision Making This is a 42-year-old female who presents to the emergency department for concerns associated with her PICC line. CBC obtained on 08/18 did reveal leukocytosis of 12.8. Recheck of CBC today reveals that the leukocytosis has resolved. Lab work was nonactionable. X-ray of the right humerus obtained revealing no evidence of soft tissue swelling or subcutaneous gas to suggest infection. Ultrasound of the right upper extremity was obtained as well, revealing no evidence of a DVT. Given the surrounding erythema, the patient's complicated medical history, and tendency to get infections, will place the patient on a 7 day course of Ceftin and an rx was sent to the pharmacy. She is instructed to follow-up with her primary care provider next week to reevaluate symptoms. Instructed her to return if she develops increasing pain, fevers, chills, or feels overall much worse. Return precautions reviewed in depth, the patient is instructed to return to the emergency department with any new, worsening, or concerning symptoms. Patient verbalized understanding. This case was discussed in detail with the attending ED physician. Presentation, findings, and treatment plan discussed in detail as well. - Lab Data Result diagrams: 08/21/22 09:04 08/21/22 09:04 Lab Results 08/21/22 08/21/22 Range/Units 09:04 09:04 WBC 9.1 (3.8-10.6) k/uL RBC 4.24 (3.80-5.40) m/uL Hgb 11.8 (11.4-16.0) gm/dL Hct 37.2 (34.0-46.0) % MCV 87.7 (80.0-100.0) fL MCH 27.8 (25.0-35.0) pg MCHC 31.7 (31.0-37.0) g/dL RDW 13.8 (11.5-15.5) % Plt Count 370 (150-450) k/uL MPV 8.2 Neutrophils % 74 % Lymphocytes % 16 % Monocytes % 6 % Eosinophils % 3 % Basophils % 1 % Neutrophils # 6.7 (1.3-7.7) k/uL Lymphocytes # 1.4 (1.0-4.8) k/uL Monocytes # 0.5 (0-1.0) k/uL Eosinophils # 0.3 (0-0.7) k/uL Basophils # 0.0 (0-0.2) k/uL Hypochromasia Slight ESR 12 (0-20) mm/hr Sodium 139 (137-145) mmol/L Potassium 4.3 (3.5-5.1) mmol/L Chloride 106 (98-107) mmol/L Carbon Dioxide 19 L (22-30) mmol/L Anion Gap 14 mmol/L BUN 10 (7-17) mg/dL Creatinine 0.64 (0.52-1.04) mg/dL Est GFR (CKD-EPI)AfAm >90 (>60 ml/min/1.73 sqM) Est GFR (CKD-EPI)NonAf >90 (>60 ml/min/1.73 sqM) Glucose 163 H (74-99) mg/dL Calcium 10.0 (8.4-10.2) mg/dL Total Bilirubin 0.2 (0.2-1.3) mg/dL AST 27 (14-36) U/L ALT 21 (4-34) U/L Alkaline Phosphatase 73 (38-126) U/L C-Reactive Protein 1.4 H (<1.0) mg/dL Total Protein 6.4 (6.3-8.2) g/dL Albumin 4.2 (3.5-5.0) g/dL - Radiology Data Radiology results: report reviewed, image reviewed Disposition Clinical Impression: Cellulitis of right upper arm Disposition: HOME SELF-CARE Instructions (If sedation given, give patient instructions): Cellulitis (ED) Additional Instructions: Return to the emergency department with any new, worsening, or concerning symptoms. Take the antibiotic as prescribed for 7 days. Follow up with your primary care provider in 1-2 days. Prescriptions: cefUROXime axetiL [Ceftin] 500 mg PO BID 7 Days #14 tab Is patient prescribed a controlled substance at d/c from ED?: No Referrals: Julissa Montano III, MD [Primary Care Provider] - 1-2 days
[2022-08-21 09:21] LABS: Basophils % (A) 1 %; Eosinophils # (A) 0.3 k/uL (0-0.7); Eosinophils % (A) 3 %; HCT 37.2 % (34.0-46.0); HGB 11.8 gm/dL (11.4-16.0); Hypochromasia Slight; Lymphocytes # (A) 1.4 k/uL (1.0-4.8); Lymphocytes % (A) 16 %; MCH 27.8 pg (25.0-35.0); MCHC 31.7 g/dL (31.0-37.0); MCV 87.7 fL (80.0-100.0); Mean Platelet Volume 8.2; Monocytes # (A) 0.5 k/uL (0-1.0); Monocytes % (A) 6 %; Neutrophils # (A) 6.7 k/uL (1.3-7.7); Neutrophils % (A) 74 %; Platelet Count 370 k/uL (150-450); RBC 4.24 m/uL (3.80-5.40); RDW 13.8 % (11.5-15.5); WBC 9.1 k/uL (3.8-10.6)
[2022-08-21 09:30] LABS: ALT 21 U/L (4-34); AST 27 U/L (14-36); African American GFR (CKD) >90 (>60 ml/min/1.73 sqM); Albumin 4.2 g/dL (3.5-5.0); Alkaline Phosphatase 73 U/L (38-126); Anion Gap 14 mmol/L; Blood Urea Nitrogen 10 mg/dL (7-17); C Reactive Protein 1.4 mg/dL (<1.0); Carbon Dioxide 19 mmol/L (22-30); Chloride 106 mmol/L (98-107); Glucose 163 mg/dL (74-99); Non-African American GFR(CKD) >90 (>60 ml/min/1.73 sqM); Potassium 4.3 mmol/L (3.5-5.1); Sodium 139 mmol/L (137-145); Total Bilirubin 0.2 mg/dL (0.2-1.3); Total Protein 6.4 g/dL (6.3-8.2)
--- NOTE | 2022-08-21 09:51 | XR ---
EXAMINATION TYPE: XR humerus RT DATE OF EXAM: 08/21/2022 9:16 AM INDICATION: Patient age:Female; 42 years old; Reason for study: Possible PICC line infection; [facility]. COMPARISON: None TECHNIQUE: The right humerus was examined in AP, internally rotated and axillary projections. FINDINGS: No evidence of acute osseous pathology, joint dislocation, or soft tissue swelling. The rem aining portions of the visualized chest are unremarkable. Visualized PICC line appears intact. IMPRESSION: 1. No acute osseous pathology. 2. Visualized PICC line appears intact.
--- NOTE | 2022-08-21 10:17 | US ---
EXAMINATION TYPE: US venous doppler duplex UE RT DATE OF EXAM: 08/21/2022 COMPARISON: NONE CLINICAL HISTORY: Swelling and redness at PICC site. Mild swelling around PICC line at right cephali c vein on lateral antecubital space. On Xarelto SIDE PERFORMED: Right Grayscale, color doppler, spectral doppler imaging performed of the deep veins of the upper extremiti es. There is normal flow, compressibility and vascular waveforms. Right Arm: Negative for DVT IMPRESSION: No evidence for deep vein thrombosis of the right upper extremity.
[2022-08-21 10:31] LABS: Erythrocyte Sedimentation Rate 12 mm/hr (0-20)
[2022-08-21 10:44] VITALS: RESP 18
[2022-08-21 11:21] VITALS: BP 120/65; PULSE 95; TEMP 98.6
== END 2022-08-21 11:20 | disposition home or self-care (01) ==
LOC: EC 08:38
DX: L03.113 Cellulitis of right upper limb (principal); J45.909 Unspecified asthma, uncomplicated; E11.9 Type 2 diabetes mellitus without complications; K21.9 Gastro-esophageal reflux disease without esophagitis; E07.9 Disorder of thyroid, unspecified; Z86.73 Personal history of transient ischemic attack (TIA), and cerebral infarction without residual deficits; Z86.718 Personal history of other venous thrombosis and embolism; Z79.890 Hormone replacement therapy; Z79.899 Other long term (current) drug therapy; Z79.51 Long term (current) use of inhaled steroids; Z79.4 Long term (current) use of insulin; Z91.010 Allergy to peanuts; Z91.041 Radiographic dye allergy status; Z88.8 Allergy status to other drugs, medicaments and biological substances; Z88.1 Allergy status to other antibiotic agents; Z88.2 Allergy status to sulfonamides; Z88.9 Allergy status to unspecified drugs, medicaments and biological substances
CPT/HCPCS: 36415; 80053; 85025; 85652; 86140; 99284

== ENCOUNTER 2022-09-08 15:23 | Emergency (ER) | payer MEDICARE, OTHER ==
[2022-09-08 16:08] VITALS: TEMP 98.9
[2022-09-08] MEDS ORDERED: SODIUM CHLORIDE 0.9% 1,000 ML IV STA (17:39)
[2022-09-08] MEDS ORDERED: ONDANSETRON 4 MG/2 ML VIAL IVP STA ×2 (17:39→21:06)
[2022-09-08] MEDS ORDERED: KETOROLAC 15 MG/ML 1 ML VIAL IVP STA (17:39)
[2022-09-08] MEDS ORDERED: SODIUM CHLORIDE 0.9% 1,000 ML IV ONE (17:58)
[2022-09-08 18:44] LABS: Basophils % (A) 0 %; Eosinophils # (A) 0.3 k/uL (0-0.7); Eosinophils % (A) 3 %; HCT 34.9 % (34.0-46.0); HGB 11.5 gm/dL (11.4-16.0); Lymphocytes # (A) 1.3 k/uL (1.0-4.8); Lymphocytes % (A) 11 %; MCH 29.1 pg (25.0-35.0); MCV 88.2 fL (80.0-100.0); Mean Platelet Volume 7.5; Monocytes # (A) 0.5 k/uL (0-1.0); Monocytes % (A) 4 %; Neutrophils % (A) 80 %; Platelet Count 330 k/uL (150-450); RBC 3.96 m/uL (3.80-5.40); RDW 13.9 % (11.5-15.5); WBC 11.2 k/uL (3.8-10.6)
--- NOTE | 2022-09-08 19:31 | ED ---
Abdominal Pain HPI - General Chief Complaint: Abdominal Pain Stated Complaint: abd pain, vomitting Time Seen by Provider: 09/08/22 17:39 Source: patient Mode of arrival: wheelchair Limitations: no limitations - History of Present Illness Initial Comments: Patient is a 42-year-old female presenting with chief complaint of abdominal pain. Patient admits to epigastric pain that is ongoing for the last 3 days. Patient notices worsening pain after eating. She admits to nausea with no vomiting. Patient states that she has a multitude of GI issues and takes several anti-nausea and vomiting medications on regular basis. 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 Patient has history of cholecystectomy. She denies any chest pain, difficulty breathing, fever, chills, hematochezia, melena, palpitations, weakness. - Related Data Home Medications Medication Instructions Recorded Confirmed Levothyroxine Sodium [Synthroid] 100 mcg PO DAILY 01/16/19 06/23/22 Methenamine Hippurate 1 gm PO BID 07/12/19 06/23/22 Mirabegron [Myrbetriq] 25 mg PO DAILY 10/08/19 06/23/22 Promethazine [Phenergan] 25 mg PO Q6H PRN 11/30/19 06/23/22 Levothyroxine Sodium [Synthroid] 125 mcg PO MOTUWETH 12/28/19 06/23/22 Albuterol Inhaler [Ventolin Hfa 2 puff INHALATION RT-Q2H PRN 09/19/20 06/23/22 Inhaler] Dexlansoprazole [Dexilant] 60 mg PO DAILY 09/19/20 06/23/22 Galcanezumab-Gnlm [Emgality Pen] 120 mg SQ Q30D 09/19/20 06/23/22 Meloxicam [Mobic] 15 mg PO DAILY 09/19/20 06/23/22 Rizatriptan Benzoate [Rizatriptan] 5 mg PO BID PRN 09/19/20 06/23/22 Sodium Chloride 0.9% Iv 1,500 ml IV DAILY 09/19/20 06/23/22 Brexpiprazole [Rexulti] 0.5 mg PO HS 06/01/21 06/23/22 Cyanocobalamin (Vitamin B-12) 1,000 mcg PO DAILY 06/01/21 06/23/22 [Vitamin B-12] Ezetimibe [Zetia] 10 mg PO HS 06/01/21 06/23/22 busPIRone HCL [Buspar] 30 mg PO BID 06/01/21 06/23/22 Baclofen [Lioresal] 20 mg PO QID 06/02/21 06/23/22 Fluticasone/Vilanterol [Breo 1 puff INHALATION RT-DAILY 09/27/21 06/23/22 Ellipta 100-25 Mcg Inhaler] Ondansetron Odt [Zofran ODT] 8 mg PO TID PRN 09/27/21 06/23/22 polyethylene glycoL 3350 [Miralax] 17 gm PO DAILY 09/27/21 06/23/22 Metoprolol Succinate (ER) [Toprol 100 mg PO DAILY 02/05/22 06/23/22 XL] Dexmethylphenidate HCl [Focalin] 5 mg PO DAILY 04/26/22 06/23/22 Fluticasone Nasal [place] [Flonase 1 spray EA NOSTRIL DAILY 04/26/22 06/23/22 Nasal [place]] HYDROcodone/APAP 5-325MG [[place] 1 - 2 tab PO Q8HR PRN 04/26/22 06/23/22 5-325] Insulin Aspart (Niacinamide) See Protocol SQ ACHS PRN 04/26/22 06/23/22 [Fiasp 100 Unit/ml Flextouch Pen] Insulin Glargine,Hum.rec.anlog 30 unit SQ BID 04/26/22 06/23/22 [Lantus Solostar Pen] Levocetirizine Dihydrochloride 5 mg PO BID 04/26/22 06/23/22 [Xyzal] [place] Carbonate [[place] 300 mg PO TID 04/26/22 06/23/22 Carbonate ER] Metoclopramide [Reglan] 10 mg PO ACHS PRN 04/26/22 06/23/22 traZODone HCL 200 mg PO HS 04/26/22 06/23/22 Ammonium Lactate Lotion 1 applic TOPICAL BID PRN 06/23/22 06/23/22 [Lac-Hydrin 12% Lotion] Butalbit/Acetamin/Caff/Codeine 1 cap PO Q8H PRN 06/23/22 06/23/22 [Butal/APAP/Caff/Cod 39-900-36-30MG] Dicyclomine HCl 20 mg PO Q6H PRN 06/23/22 06/23/22 Ketoconazole 2% Shampoo [Nizoral] 1 applic TOPICAL DIRECTED PRN 06/23/22 06/23/22 Lidocaine 4% [place] 1 spray TOPICAL Q8H PRN 06/23/22 06/23/22 Meclizine HCl [Antivert] 25 mg PO TID PRN 06/23/22 06/23/22 Ondansetron 4mg/2ml Injection 8 mg IVP Q8H PRN 06/23/22 06/23/22 Phenazopyridine HCl 95 mg PO DAILY PRN 06/23/22 06/23/22 Prochlorperazine [Compro] 25 mg RECTAL Q8H PRN 06/23/22 06/23/22 Rimegepant Sulfate [Nurtec Odt] 75 mg PO DAILY PRN 06/23/22 06/23/22 Semaglutide [Ozempic] 1 mg SQ FR 06/23/22 06/23/22 Sucralfate [Carafate] 1 gm PO BID PRN 06/23/22 06/23/22 Sucralfate [Carafate] 1 gm PO DAILY 06/23/22 06/23/22 cloNIDine HCL [Kapvay] 0.2 mg PO BID 06/23/22 06/23/22 modafiniL [Provigil] 200 - 400 mg PO DAILY PRN 06/23/22 06/23/22 tiZANidine HCL 2 mg PO DAILY PRN 06/23/22 06/23/22 Previous Rx's Medication Instructions Recorded Fenofibrate [Lofibra] 160 mg PO HS tab 10/17/19 Gabapentin [Neurontin] 400 mg PO TID cap 10/17/19 Rivaroxaban [Xarelto] 20 mg PO HS tab 10/17/19 Trimethoprim [Trimpex] 100 mg PO HS tab 10/17/19 Acetaminophen Tab [Tylenol] 650 mg PO Q6HR PRN tab 06/29/22 cefUROXime axetiL [Ceftin] 500 mg PO BID 7 Days #14 tab 08/21/22 Allergies Allergy/AdvReac Type Severity Reaction Status Date / Time peanut oil Allergy Severe Nausea & Verified 08/21/22 08:46 Vomiting,itching barium sulfate Allergy Anaphylaxis Verified 09/08/22 16:08 doxepin [Doxepin] Allergy Anaphylaxis Verified 09/08/22 16:08 ephedrine Allergy Chest Verified 09/08/22 16:08 Pain/tachycardia ertapenem [From Invanz] Allergy Rash/Hives- Verified 09/08/22 16:08 like a chemical burn peanut Allergy Nausea & Verified 09/08/22 16:08 Vomiting/itching pseudoephedrine Allergy Chest Pain Verified 09/08/22 16:08 Sulfa (Sulfonamide Allergy Nausea & Verified 09/08/22 16:08 Antibiotics) Vomiting, DEHYDRATION sumatriptan [From Imitrex] Allergy affects Verified 09/08/22 16:08 vision-unable to see for hrs. doxycycline AdvReac Nausea & Verified 09/08/22 16:08 Vomiting & Diarrhea pseudoephedrine HCl AdvReac chest Verified 09/08/22 16:08 [From Sudafed] pain/tachycardia sulfamethoxazole AdvReac Nausea & Verified 08/21/22 08:46 [From Bactrim] Vomiting Review of Systems ROS Statement: Those systems with pertinent positive or pertinent negative responses have been documented in the HPI. ROS Other: All systems not noted in ROS Statement are negative. Past Medical History Past Medical History: Asthma, CVA/TIA, Diabetes Mellitus, Deep Vein Thrombosis (DVT), GERD/Reflux, Neurologic Disorder, Sleep Apnea/CPAP/BIPAP, Syncope, Thyroid Disorder Additional Past Medical History / Comment(s): Patient states recent low grade fevers Dr thinks may be realted to blood clot in port causing infection. States port is not working right. Mitochondrial metabolism disorder. Port a cath right chest-currently not working. Stroke like episode d/t mitochondrial disease, Dysautonomia, idiopathic intracranial HTN, Lupus, Emily's Thyroiditis. Lymphedema left arm d/t DVTs, avoid use of left arm for BP, IV, blood draws. Vtach, pituitary microadenoma, patent foramen ovale, narcolepsy, gastropareis, hx orthostatic hypotension/syncope, migraines with hemiplegia, pernicious anemia, polycystic ovarian syndrome, neuropathy bilateral legs/feet/arms, neurogenic bladder with UTI's, stress incontinence, uses wheelchair, able to transfer and walk few steps, sleep apnea-has not received machine yet, lupus anticoagulation syndrome. History of Any Multi-Drug Resistant Organisms: ESBL, MRSA Date of last positivie culture/infection: 03/09/17 MRSA/ 05/17/18 ESBL MDRO Source:: MRSA LEFT ARM,/ESBL URINE ECOLI Past Surgical History: Cholecystectomy, Uterine Ablation Additional Past Surgical History / Comment(s): Colonscopy/EGD, GERSON, PORT-A -CATH INSERTION X3. Past Anesthesia/Blood Transfusion Reactions: Previous Problems w/ Anesthesia, Motion Sickness Additional Past Anesthesia/Blood Transfusion Reaction / Comment(s): Patient states difficult to sedate. Past Psychological History: Anxiety, Bipolar, Depression Smoking Status: Never smoker Past Alcohol Use History: None Reported Past Drug Use History: None Reported - Past Family History Brother(s) Family Medical History: Diabetes Mellitus, Hyperlipidemia, Hypertension Additional Family Medical History / Comment(s): Patient states she has 1 brother with no major medical problems. Father History Unknown: Yes Family Medical History: Diabetes Mellitus, Hyperlipidemia, Hypertension Mother Family Medical History: CVA/TIA, Diabetes Mellitus, Deep Vein Thrombosis (DVT) Additional Family Medical History / Comment(s): Antiphospholipid antibody syndrome, Lupus, dementia. General Exam Limitations: no limitations General appearance: alert, in no apparent distress Head exam: Present: atraumatic, normocephalic, normal inspection Eye exam: Present: normal appearance, PERRL, EOMI. Absent: scleral icterus, conjunctival injection, periorbital swelling Neck exam: Present: normal inspection Respiratory exam: Present: normal lung sounds bilaterally. Absent: respiratory distress, wheezes, rales, rhonchi, stridor Cardiovascular Exam: Present: regular rate, normal rhythm, normal heart sounds. Absent: systolic murmur, diastolic murmur, rubs, gallop, clicks GI/Abdominal exam: Present: soft. Absent: distended, tenderness, guarding, rebound, rigid Neurological exam: Present: alert, oriented X3, CN II-XII intact Psychiatric exam: Present: normal affect, normal mood Skin exam: Present: warm, dry, intact, normal color. Absent: rash Course Vital Signs 09/08/22 09/08/22 09/08/22 16:05 18:35 23:33 Temperature 98.9 F Pulse Rate 88 84 77 Respiratory 16 16 15 Rate Blood Pressure 134/77 120/86 133/74 O2 Sat by Pulse 98 97 98 Oximetry Medical Decision Making - Medical Decision Making Patient is a 42-year-old female presenting with chief complaint of epigastric pain. Patient has history of cholecystectomy. She admits to some nausea with no vomiting. Physical examination is unremarkable. WBC 11.2, likely reactive. CMP is unremarkable. Patient reports improvement after GI cocktail and Pepcid. She is instructed to follow-up with her PCP and GI. Also provided referral for general surgery as patient may require scope and they may be able to provide the necessary services. Follow-up with PCP. Report back to ER with any new or worsening symptoms. Discussed return parameters and answered all questions. Patient conveyed verbal understanding and agreed to the plan. I discussed this case in detail with my attending Dr. Diaz - Lab Data Result diagrams: 09/08/22 18:35 09/08/22 18:35 Lab Results 09/08/22 09/08/22 Range/Units 18:35 18:35 WBC 11.2 H (3.8-10.6) k/uL RBC 3.96 (3.80-5.40) m/uL Hgb 11.5 (11.4-16.0) gm/dL Hct 34.9 (34.0-46.0) % MCV 88.2 (80.0-100.0) fL MCH 29.1 (25.0-35.0) pg MCHC 33.0 (31.0-37.0) g/dL RDW 13.9 (11.5-15.5) % Plt Count 330 (150-450) k/uL MPV 7.5 Neutrophils % 80 % Lymphocytes % 11 % Monocytes % 4 % Eosinophils % 3 % Basophils % 0 % Neutrophils # 9.0 H (1.3-7.7) k/uL Lymphocytes # 1.3 (1.0-4.8) k/uL Monocytes # 0.5 (0-1.0) k/uL Eosinophils # 0.3 (0-0.7) k/uL Basophils # 0.0 (0-0.2) k/uL Sodium 137 (137-145) mmol/L Potassium 4.4 (3.5-5.1) mmol/L Chloride 104 (98-107) mmol/L Carbon Dioxide 21 L (22-30) mmol/L Anion Gap 12 mmol/L BUN 8 (7-17) mg/dL Creatinine 0.65 (0.52-1.04) mg/dL Est GFR (CKD-EPI)AfAm >90 (>60 ml/min/1.73 sqM) Est GFR (CKD-EPI)NonAf >90 (>60 ml/min/1.73 sqM) Glucose 97 (74-99) mg/dL Calcium 9.4 (8.4-10.2) mg/dL Total Bilirubin 0.2 (0.2-1.3) mg/dL AST 21 (14-36) U/L ALT 18 (4-34) U/L Alkaline Phosphatase 52 (38-126) U/L Total Protein 6.2 L (6.3-8.2) g/dL Albumin 4.0 (3.5-5.0) g/dL Amylase 46 (30-110) U/L Lipase 79 (23-300) U/L Disposition Clinical Impression: Gastritis Disposition: HOME SELF-CARE Condition: Good Instructions (If sedation given, give patient instructions): Gastritis (ED) Additional Instructions: Follow-up with PCP and GI. General surgery may also be able to provide the appropriate services such as a scope. Report back to ER with any new or worsening symptoms. Is patient prescribed a controlled substance at d/c from ED?: No Referrals: Julissa Montano III, MD [Primary Care Provider] - 1-2 days Nani Puga MD [STAFF PHYSICIAN] - 1-2 days Leslie Mendez MD [STAFF PHYSICIAN] - 1-2 days Time of Disposition: 21:06
[2022-09-08 19:35] LABS: ALT 18 U/L (4-34); AST 21 U/L (14-36); African American GFR (CKD) >90 (>60 ml/min/1.73 sqM); Alkaline Phosphatase 52 U/L (38-126); Amylase 46 U/L (30-110); Anion Gap 12 mmol/L; Blood Urea Nitrogen 8 mg/dL (7-17); Calcium 9.4 mg/dL (8.4-10.2); Carbon Dioxide 21 mmol/L (22-30); Chloride 104 mmol/L (98-107); Glucose 97 mg/dL (74-99); Lipase 79 U/L (23-300); Non-African American GFR(CKD) >90 (>60 ml/min/1.73 sqM); Potassium 4.4 mmol/L (3.5-5.1); Sodium 137 mmol/L (137-145); Total Bilirubin 0.2 mg/dL (0.2-1.3); Total Protein 6.2 g/dL (6.3-8.2)
[2022-09-08] MEDS ORDERED: MAG HYDROX/AL HYDROX/SIMETH 30 ML, HYOSCYAMINE ELIXIR 10 ML, LIDOCAINE VISCOUS 2% 10 ML PO STA ×3 (19:39)
[2022-09-08] MEDS ORDERED: FAMOTIDINE 20 MG/2 ML VIAL IV STA (20:18)
[2022-09-08 23:34] VITALS: BP 133/74; PULSE 77; RESP 15
== END 2022-09-08 23:35 | disposition home or self-care (01) ==
LOC: EC 15:23
DX: K29.70 Gastritis, unspecified, without bleeding (principal); J45.909 Unspecified asthma, uncomplicated; Z86.73 Personal history of transient ischemic attack (TIA), and cerebral infarction without residual deficits; Z86.718 Personal history of other venous thrombosis and embolism; K21.9 Gastro-esophageal reflux disease without esophagitis; E07.9 Disorder of thyroid, unspecified; F41.9 Anxiety disorder, unspecified; F31.9 Bipolar disorder, unspecified; Z91.010 Allergy to peanuts; Z91.041 Radiographic dye allergy status; Z88.8 Allergy status to other drugs, medicaments and biological substances; Z79.4 Long term (current) use of insulin; Z79.890 Hormone replacement therapy; Z79.51 Long term (current) use of inhaled steroids; Z79.899 Other long term (current) drug therapy
CPT/HCPCS: 36415; 80053; 82150; 83690; 85025; 96374; 99284

== ENCOUNTER 2022-10-08 08:43 | Day surgery (SDC) | payer MEDICARE, OTHER ==
[~2022-10-08 08:43] MED LIST changes: -LIDOCAINE 1% (10MG/ML) FOR IV START INTRADERMA PRN; -Pre Op ABX Message 1 EACH MISC MISCELLANE ONE
[2022-10-08 10:07] VITALS: TEMP 97.2
[2022-10-08 10:16] LABS: Glucose,Whole Blood 128 mg/dL (70-110)
[2022-10-08] MEDS ORDERED: SODIUM CHLORIDE 0.9% 1,000 ML IV ONE (10:25)
[2022-10-08] MEDS ORDERED: ONDANSETRON 4 MG/2 ML VIAL ONE (10:29)
[2022-10-08] MEDS ORDERED: ONDANSETRON 4 MG/2 ML VIAL IVP ONE (10:30)
[2022-10-08] MEDS ORDERED: PROPOFOL 10 MG/ML 20 ML VIAL IV ONE (10:37)
[2022-10-08] MEDS ORDERED: LIDOCAINE 2% INJ 20 MG/ML (2 ML VIAL) ONE (10:37)
--- NOTE | 2022-10-08 10:51 | P.PCN ---
Date of Procedure: 10/08/22 Procedure(s) Performed: BRIEF HISTORY: Patient is a 42-year-old, pleasant, female scheduled for an upper endoscopy as a part of evaluation of severe epigastric pain for the last 2 months duration. She is currently and dexilant, Pepcid, Bentyl, antiemetics with no help.. PROCEDURE PERFORMED: Esophagogastroduodenoscopy with biopsy. PREOPERATIVE DIAGNOSIS: Chronic epigastric pain of 2 months duration. IV sedation per anesthesia. PROCEDURE: After informed consent was obtained, the patient was brought into the endoscopy unit. IV sedation was administered by Anesthesia under continuous monitoring. Initially the Olympus GIF-140 video endoscope was inserted into the mouth. Esophagus intubated without any difficulty. It was gradually advanced into the stomach and duodenum and carefully examined. The bulb and the second part of the duodenum appeared normal. Biopsies were done from the duodenum to rule out celiac disease. The scope at this time was withdrawn to the stomach, adequately insufflated with air, and upon careful examination, mucosa of the antrum had mild gastritis and biopsies were done from this area. The, body, cardia and the fundus appeared normal. There was large amount of solid food retained in the stomach suggestive of diabetic gastroparesis. The scope was then withdrawn into the esophagus. The GE junction was located at 39 cm from the incisors. The esophagus appeared normal. There were no erosions or ulcerations seen and the patient tolerated the procedure well. IMPRESSION: 1.. Retained food in the stomach suggestive of diabetic gastroparesis. 2. Mild Antral gastritis. RECOMMENDATIONS: The findings of this examination were discussed with the patient .as well as a family. She was advised to follow with the biopsy results and continue with excellent, Reglan 10 mg 4 times daily, small frequent meals and aggressive control of blood sugars.
[2022-10-08 11:00] VITALS: RESP 16
[2022-10-08 11:18] VITALS: BP 118/69; PULSE 79
== END 2022-10-08 11:41 | disposition home or self-care (01) ==
LOC: ORWHC2ENDO 08:43
PROVIDERS: ATTEND Internal Medicine Gastroenterology
DX: K29.50 Unspecified chronic gastritis without bleeding (principal); K21.00 Gastro-esophageal reflux disease with esophagitis, without bleeding; G89.29 Other chronic pain
CPT/HCPCS: 81025; 88305; 43239; J2405; J2704; J2001

== ENCOUNTER 2022-11-07 12:57 | Inpatient (IN) | payer MEDICARE, OTHER ==
[2022-11-07] MEDS ORDERED: VANCOMYCIN IV PER PHARMACY 1 EACH MISC MISCELLANE PRN (13:19)
--- NOTE | 2022-11-07 13:29 | ED ---
General Adult HPI - General Chief complaint: Recheck/Abnormal Lab/Rx Stated complaint: Irregular labs-sent by PCP Time Seen by Provider: 11/07/22 13:06 Source: patient Mode of arrival: wheelchair Limitations: no limitations - History of Present Illness Initial comments: Dictation was produced using [employer] dictation software. please excuse any gramm atical, word or spelling errors. Chief Complaint: 42-year-old female past medical history of mitochondrial disease presents with positive blood cultures History of Present Illness: Patient is a 42-year-old female she has past medical history of mitochondrial disease she relies on IV axis for hydration. Patient has a right upper extremity PICC line. The last 5 days she's been having constitutional symptoms. Patient has been having chills, nausea and elevated temperatures. She had blood cultures drawn by her primary care doctor. She is positive for gram-positive cocci. has no other complaints or localizing symptoms. Denies any pain or drainage from the PICC site. does notice that appears a little swollen. The ROS documented in this emergency department record has been reviewed and confirmed by me. Those systems with pertinent positive or negative responses have been documented in the HPI. All other systems are other negative and/or noncontributory. PHYSICAL EXAM: General Impression: Alert and oriented x3, not in acute distress HEENT: Normocephalic atraumatic, extra-ocular movements intact, pupils equal and reactive to light bilaterally, mucous membranes moist. Cardiovascular: Heart regular rate and rhythm Chest: Able to complete full sentences, no retractions, no tachypnea Abdomen: abdomen soft, non-tender, non-distended, no organomegaly Musculoskeletal: Pulses present and equal in all extremities, no peripheral edema Motor: no focal deficits noted Neurological: CN II-XII grossly intact, no focal motor or sensory deficits noted Skin: Intact with no visualized rashes, PICC site clean dry and intact Psych: Normal affect and mood ED course: 42-year-old female with past medical history of mitochondrial disease. She relies on IV axis sites for IV hydration secondary to her mitochondrial disease. She has a right upper extremity PICC line site. Patient had positive blood cultures 2 done 2 days ago. Cultures reviewed shows that is positive for gram-positive cocci. Vital signs upon arrival are within acceptable limits. Patient's well-appearing at the bedside. Patient treated with vancomycin. Nursing notes and chart review was performed. Labs unremarkable. admitted to [facility]. Case discussed with sheet - Related Data Home Medications Medication Instructions Recorded Confirmed Levothyroxine Sodium [Synthroid] 100 mcg PO DAILY 01/16/19 10/07/22 Methenamine Hippurate 1 gm PO BID 07/12/19 10/07/22 Mirabegron [Myrbetriq] 25 mg PO DAILY 10/08/19 10/07/22 Promethazine [Phenergan] 25 mg PO Q6H PRN 11/30/19 10/07/22 Levothyroxine Sodium [Synthroid] 125 mcg PO MOTUWETH 12/28/19 10/07/22 Albuterol Inhaler [Ventolin Hfa 2 puff INHALATION RT-Q2H PRN 09/19/20 10/07/22 Inhaler] Dexlansoprazole [Dexilant] 60 mg PO DAILY 09/19/20 10/07/22 Galcanezumab-Gnlm [Emgality Pen] 120 mg SQ Q30D 09/19/20 10/07/22 Meloxicam [Mobic] 15 mg PO DAILY 09/19/20 10/07/22 Rizatriptan Benzoate [Rizatriptan] 5 mg PO BID PRN 09/19/20 10/07/22 Sodium Chloride 0.9% Iv 2,000 ml IV DAILY 09/19/20 10/07/22 Brexpiprazole [Rexulti] 0.5 mg PO HS 06/01/21 10/07/22 Cyanocobalamin (Vitamin B-12) 1,000 mcg PO DAILY 06/01/21 10/07/22 [Vitamin B-12] Ezetimibe [Zetia] 10 mg PO HS 06/01/21 10/07/22 busPIRone HCL [Buspar] 30 mg PO BID 06/01/21 10/07/22 Baclofen [Lioresal] 20 mg PO QID 06/02/21 10/07/22 Fluticasone/Vilanterol [Breo 1 puff INHALATION RT-DAILY 09/27/21 10/07/22 Ellipta 100-25 Mcg Inhaler] Ondansetron Odt [Zofran ODT] 8 mg PO TID PRN 09/27/21 10/07/22 polyethylene glycoL 3350 [Miralax] 17 gm PO DAILY 09/27/21 10/07/22 Metoprolol Succinate (ER) [Toprol 100 mg PO DAILY 02/05/22 10/07/22 XL] Fluticasone Nasal Gate [Flonase 2 spray EA NOSTRIL DAILY 04/26/22 10/07/22 Nasal Gate] Levocetirizine Dihydrochloride 5 mg PO BID 04/26/22 10/07/22 [Xyzal] [place] Carbonate [[place] 300 mg PO TID 04/26/22 10/07/22 Carbonate ER] Metoclopramide [Reglan] 10 mg PO ACHS PRN 04/26/22 10/07/22 traZODone HCL 200 mg PO HS 04/26/22 10/07/22 Ammonium Lactate Lotion 1 applic TOPICAL BID PRN 06/23/22 10/07/22 [Lac-Hydrin 12% Lotion] Butalbit/Acetamin/Caff/Codeine 1 cap PO Q8H PRN 06/23/22 10/07/22 [Butal/APAP/Caff/Cod 39-022-78-30MG] Dicyclomine HCl 20 mg PO Q6H PRN 06/23/22 10/07/22 Ketoconazole 2% Shampoo [Nizoral] 1 applic TOPICAL DIRECTED PRN 06/23/22 10/07/22 Lidocaine 4% Gate 1 spray TOPICAL Q8H PRN 06/23/22 10/07/22 Meclizine HCl [Antivert] 25 mg PO TID PRN 06/23/22 10/07/22 Ondansetron 4mg/2ml Injection 8 mg IVP Q8H PRN 06/23/22 10/07/22 Phenazopyridine HCl 95 mg PO DAILY PRN 06/23/22 10/07/22 Prochlorperazine [Compro] 25 mg RECTAL Q8H PRN 06/23/22 10/07/22 Rimegepant Sulfate [Nurtec Odt] 75 mg PO DAILY PRN 06/23/22 10/07/22 Semaglutide [Ozempic] 2 mg SQ TAYLOR 06/23/22 10/07/22 Sucralfate [Carafate] 1 gm PO DAILY 06/23/22 10/07/22 Sucralfate [Carafate] 1 gm PO TID-W/MEALS PRN 06/23/22 10/07/22 cloNIDine HCL [Kapvay] 0.2 mg PO DAILY 06/23/22 10/07/22 modafiniL [Provigil] 200 - 400 mg PO DAILY PRN 06/23/22 10/07/22 tiZANidine HCL 2 mg PO DAILY PRN 06/23/22 10/07/22 Dexmethylphenidate HCl 10 mg PO DAILY 10/07/22 10/07/22 [Dexmethylphenidate HCl ER] HYDROcodone/APAP 7.5-325MG [Alda 1 - 2 tab PO Q8HR PRN 10/07/22 10/07/22 7.5-325] Pioglitazone [Actos] 45 mg PO DAILY 10/07/22 10/07/22 Semaglutide [Ozempic] 2 mg SQ WEEKLY 10/07/22 10/07/22 cloNIDine HCL [Kapvay] 0.1 mg PO HS 10/07/22 10/07/22 glipiZIDE 10 mg PO TID-W/MEALS PRN 10/07/22 10/07/22 sitaGLIPtin [Januvia] 100 mg PO DAILY 10/07/22 10/07/22 Previous Rx's Medication Instructions Recorded Fenofibrate [Lofibra] 160 mg PO HS tab 10/17/19 Gabapentin [Neurontin] 400 mg PO TID cap 10/17/19 Rivaroxaban [Xarelto] 20 mg PO HS tab 10/17/19 Trimethoprim [Trimpex] 100 mg PO HS tab 10/17/19 Acetaminophen Tab [Tylenol] 650 mg PO Q6HR PRN tab 06/29/22 Allergies Allergy/AdvReac Type Severity Reaction Status Date / Time peanut oil Allergy Severe Nausea & Verified 11/07/22 13:05 Vomiting,itching barium sulfate Allergy Anaphylaxis Verified 11/07/22 13:05 doxepin [Doxepin] Allergy Anaphylaxis Verified 11/07/22 13:05 ephedrine Allergy Chest Verified 11/07/22 13:05 Pain/tachycardia ertapenem [From Invanz] Allergy Rash/Hives- Verified 11/07/22 13:05 like a chemical burn peanut Allergy Anaphylaxis Verified 11/07/22 13:05 pseudoephedrine Allergy Chest Pain Verified 11/07/22 13:05 Sulfa (Sulfonamide Allergy Nausea & Verified 11/07/22 13:05 Antibiotics) Vomiting, DEHYDRATION sumatriptan [From Imitrex] Allergy affects Verified 11/07/22 13:05 vision-unable to see for hrs. doxycycline AdvReac Nausea & Verified 11/07/22 13:05 Vomiting & Diarrhea pseudoephedrine HCl AdvReac chest Verified 11/07/22 13:05 [From Sudafed] pain/tachycardia sulfamethoxazole AdvReac Nausea & Verified 11/07/22 13:05 [From Bactrim] Vomiting Review of Systems ROS Statement: Those systems with pertinent positive or pertinent negative responses have been documented in the HPI. ROS Other: All systems not noted in ROS Statement are negative. Past Medical History Past Medical History: Asthma, CVA/TIA, Diabetes Mellitus, Deep Vein Thrombosis (DVT), GERD/Reflux, Hyperlipidemia, Hypertension, Neurologic Disorder, Sleep Apnea/CPAP/BIPAP, Syncope, Thyroid Disorder Additional Past Medical History / Comment(s): Patient states recent low grade fevers Dr thinks may be related to blood clot in picc linecausing infection ( ER 1 month ago dx as cellulitis). States picc line is not working right. 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 Lymphedema left arm d/t DVTs, avoid use of left arm for BP, IV, blood draws. Vtach, pituitary microadenoma, patent foramen ovale, narcolepsy, gastropareis, hx orthostatic hypotension/syncope, migraines with hemiplegia, pernicious anemia, polycystic ovarian syndrome, neuropathy bilateral legs/feet/ arms, neurogenic bladder with UTI's, stress incontinence, uses wheelchair, able to transfer and walk few steps, sleep apnea- cpap lupus anticoagulation syndrome. enlarged liver last scan > 25cm. recent reoccurence of severe abdominal pain and nausea. History of Any Multi-Drug Resistant Organisms: ESBL, MRSA Date of last positivie culture/infection: 03/09/17 MRSA/ 05/17/18 ESBL MDRO Source:: MRSA LEFT ARM,/ESBL URINE ECOLI Past Surgical History: Cholecystectomy, Uterine Ablation Additional Past Surgical History / Comment(s): Colonscopy/EGD, GERSON, PORT-A -CATH INSERTION X3. picc line currently Past Anesthesia/Blood Transfusion Reactions: Previous Problems w/ Anesthesia, Motion Sickness Additional Past Anesthesia/Blood Transfusion Reaction / Comment(s): Patient states difficult to sedate. blood transfusions no issues Past Psychological History: Anxiety, Bipolar, Depression, PTSD Smoking Status: Never smoker Past Alcohol Use History: Rare Past Drug Use History: None Reported - Past Family History Brother(s) Family Medical History: Diabetes Mellitus, Hyperlipidemia, Hypertension Additional Family Medical History / Comment(s): Patient states she has 1 brother with no major medical problems. Father History Unknown: Yes Family Medical History: Diabetes Mellitus, Hyperlipidemia, Hypertension Mother Family Medical History: CVA/TIA, Diabetes Mellitus, Deep Vein Thrombosis (DVT) Additional Family Medical History / Comment(s): Antiphospholipid antibody syndrome, Lupus, dementia. General Exam Limitations: no limitations Course Vital Signs 11/07/22 11/07/22 13:03 13:47 Temperature 98.8 F Pulse Rate 92 68 Respiratory 16 20 Rate Blood Pressure 144/82 130/68 O2 Sat by Pulse 96 98 Oximetry Medical Decision Making - Lab Data Result diagrams: 11/07/22 13:47 11/07/22 13:47 Lab Results 11/07/22 11/07/22 11/07/22 Range/Units 13:47 13:47 13:47 WBC 6.9 (3.8-10.6) k/uL RBC 4.01 (3.80-5.40) m/uL Hgb 11.7 (11.4-16.0) gm/dL Hct 36.1 (34.0-46.0) % MCV 90.0 (80.0-100.0) fL MCH 29.1 (25.0-35.0) pg MCHC 32.3 (31.0-37.0) g/dL RDW 14.5 (11.5-15.5) % Plt Count 331 (150-450) k/uL MPV 8.1 Neutrophils % 73 % Lymphocytes % 16 % Monocytes % 6 % Eosinophils % 2 % Basophils % 0 % Neutrophils # 5.1 (1.3-7.7) k/uL Lymphocytes # 1.1 (1.0-4.8) k/uL Monocytes # 0.4 (0-1.0) k/uL Eosinophils # 0.1 (0-0.7) k/uL Basophils # 0.0 (0-0.2) k/uL Sodium 138 (137-145) mmol/L Potassium 4.2 (3.5-5.1) mmol/L Chloride 110 H (98-107) mmol/L Carbon Dioxide 19 L (22-30) mmol/L Anion Gap 9 mmol/L BUN 9 (7-17) mg/dL Creatinine 0.74 (0.52-1.04) mg/dL Est GFR (CKD-EPI)AfAm >90 (>60 ml/min/1.73 sqM) Est GFR (CKD-EPI)NonAf >90 (>60 ml/min/1.73 sqM) Glucose 106 H (74-99) mg/dL Plasma Lactic Acid Joce 0.9 (0.7-2.0) mmol/L Calcium 9.4 (8.4-10.2) mg/dL Disposition Clinical Impression: Bacteremia Disposition: ADMITTED IP TO THIS [facility] Condition: Fair Referrals: Julissa Montano III, MD [Primary Care Provider] - 1-2 days Decision Time: 15:12
[2022-11-07 13:51] LABS: Basophils % (A) 0 %; Eosinophils # (A) 0.1 k/uL (0-0.7); Eosinophils % (A) 2 %; HCT 36.1 % (34.0-46.0); HGB 11.7 gm/dL (11.4-16.0); Lymphocytes # (A) 1.1 k/uL (1.0-4.8); Lymphocytes % (A) 16 %; MCH 29.1 pg (25.0-35.0); MCHC 32.3 g/dL (31.0-37.0); Mean Platelet Volume 8.1; Monocytes # (A) 0.4 k/uL (0-1.0); Monocytes % (A) 6 %; Neutrophils # (A) 5.1 k/uL (1.3-7.7); Neutrophils % (A) 73 %; Platelet Count 331 k/uL (150-450); RBC 4.01 m/uL (3.80-5.40); RDW 14.5 % (11.5-15.5); WBC 6.9 k/uL (3.8-10.6)
[2022-11-07 14:14] LABS: African American GFR (CKD) >90 (>60 ml/min/1.73 sqM); Anion Gap 9 mmol/L; Blood Urea Nitrogen 9 mg/dL (7-17); Calcium 9.4 mg/dL (8.4-10.2); Carbon Dioxide 19 mmol/L (22-30); Chloride 110 mmol/L (98-107); Glucose 106 mg/dL (74-99); Non-African American GFR(CKD) >90 (>60 ml/min/1.73 sqM); Potassium 4.2 mmol/L (3.5-5.1); Sodium 138 mmol/L (137-145)
[2022-11-07] MEDS ORDERED: VANCOMYCIN 2,250 MG in SODIUM CHLORIDE 0.9% 500 ML 500 ML IVPB ONE (14:30)
[2022-11-07] MEDS ORDERED: NALOXONE 0.4 MG/ML 1 ML VIAL IV PRN (15:10)
[2022-11-07] MEDS ORDERED: ACETAMINOPHEN TAB 325 MG TAB PO PRN (15:10)
[2022-11-07] MEDS: SODIUM CHLORIDE 0.9% 1,000 ML IV SCH (15:20)
[2022-11-07] MEDS ORDERED: DICYCLOMINE 20 MG TAB PO PRN (18:11)
[2022-11-07] MEDS ORDERED: METOCLOPRAMIDE 10 MG TAB PO PRN (18:11)
[2022-11-07] MEDS ORDERED: SUCRALFATE 1 GM TAB PO PRN (18:11)
[2022-11-07] MEDS ORDERED: tiZANidine 4 MG TAB PO PRN (18:11)
[2022-11-07] MEDS ORDERED: ALBUTEROL NEBULIZED 2.5 MG/3 ML INHALATION PRN (18:11)
[2022-11-07] MEDS ORDERED: BUTA/APAP/CAF/COD 50-325-40-30 CAP PO PRN (18:11)
--- NOTE | 2022-11-07 19:02 | P.HPIM ---
History of Present Illness This is a pleasant 42 years old female [place] the [place] who presents with positive blood culture. Patient has history of mitochondrial disease and his been followed closely with the neurologist Dr. Vickers office and she sees his nurse practitioner there. Patient states that currently also she is been evaluated for muscular dystrophy. Also she is on parenteral nutrition for the last 4-5 years using PICC line on several occasions for this purpose and she has a visiting nurse will come to help her with the infusion once a week. Also she says that she has history of lupus. She has to depend on parenteral nutrition because she has no sense of thirst and she felt several other measures like putting an alarm and she's been having a problem from not drinking enough and because of this she started receiving hydration and through the PICC line. Other than that usually she puts the IV fluid for herself since 2018. june 2022 picc line placed because of an infected port, pt had to get oral antibiotics for cellulitis around picc line site. does iv hydration daily 10-12 hours through picc line. wears brief at night. Last Tuesday she felt tired and feverish, she checked her temperature was 101, shows some headache nausea and generalized body aches. So her visiting nurse floyd some blood culture from her PICC line and when the results came back positive she contacted her PCP Dr. Ryan who referred her to the hospital. Also patient follow up with Dr. Rivero for her diabetes mellitus and Emily disease, she is on several medications O's for diabetes including ozempic, Januvia, glipizide and Actos she complains from mild headache currently associated with some dizziness and lightheadedness but denies any weakness or numbness. No vomiting only nausea, decreased appetite but no abdominal pain, she feels constipated because she forgot to take her laxative. No chest pain dyspnea or cough and No smoking alcohol or illicit drugs. Her vitals are stable and afebrile while in the emergency room She has unremarkable labs including CBC, BMP Viruses were checked and they were negative including RSV, influenza and howard/covid in the emergency room she was started on IV vancomycin with infectious disease consult Review of Systems Review of systems CONSTITUTIONAL: No fever, no malaise, no fatigue. HEENT: No recent visual problems or hearing problems. Denied any sore throat. CARDIOVASCULAR: No orthopnea, PND, no palpitations, no syncope. PULMONARY: No shortness of breath, no cough, no hemoptysis. GASTROINTESTINAL: No diarrhea, no nausea, no vomiting, no abdominal pain. Normoactive bowel sounds. NEUROLOGICAL: No headaches, no weakness, no numbness. HEMATOLOGICAL: Denies any bleeding or petechiae. GENITOURINARY: Denies any burning micturition, frequency, or urgency. MUSCULOSKELETAL/RHEUMATOLOGICAL: Denies any joint pain, swelling, or any muscle pain. ENDOCRINE: Denies any polyuria or polydipsia. Past Medical History Past Medical History: Asthma, CVA/TIA, Diabetes Mellitus, Deep Vein Thrombosis (DVT), GERD/Reflux, Hyperlipidemia, Hypertension, Neurologic Disorder, Sleep Apnea/CPAP/BIPAP, Syncope, Thyroid Disorder Additional Past Medical History / Comment(s): Patient states recent low grade fevers thinks may be related to blood clot in picc linecausing infection ( ER 1 month ago dx as cellulitis). States picc line is not working right. 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 Lymphedema left arm d/t urosepsis, DVTs, avoid use of left arm for BP, IV, blood draws but doc approved to use at times with clearance. Vtach, pituitary microadenoma, patent foramen ovale, narcolepsy, gastropareis, hx orthostatic hypotension/syncope, migraines with hemiplegia, pernicious anemia, polycystic ovarian syndrome, neuropathy bilateral legs/feet/arms, neurogenic bladder with UTI's, stress incontinence, uses wheelchair, able to transfer and walk few steps, sleep apnea- cpap lupus anticoagulation syndrome. enlarged liver last scan > 25cm. recent reoccurence of severe abdominal pain and nausea. june 2022 picc line placed because of an infected port, pt had to get oral antibiotics for cellulitis around picc line site. does iv hydration daily 10-12 hours through picc line. wears brief at night. History of Any Multi-Drug Resistant Organisms: ESBL, MRSA Date of last positivie culture/infection: 03/09/17 MRSA/ 05/17/18 ESBL MDRO Source:: MRSA LEFT ARM,/ESBL URINE ECOLI Past Surgical History: Cholecystectomy, Uterine Ablation Additional Past Surgical History / Comment(s): Colonscopy/EGD, GERSON, PORT-A -CATH INSERTION X3. picc line currently Past Anesthesia/Blood Transfusion Reactions: Previous Problems w/ Anesthesia, Motion Sickness Additional Past Anesthesia/Blood Transfusion Reaction / Comment(s): Patient states difficult to sedate. blood transfusions no issues Smoking Status: Never smoker - Past Family History Brother(s) Family Medical History: Diabetes Mellitus, Hyperlipidemia, Hypertension Additional Family Medical History / Comment(s): Patient states she has 1 brother with no major medical problems. Father History Unknown: Yes Family Medical History: Diabetes Mellitus, Hyperlipidemia, Hypertension Mother Family Medical History: CVA/TIA, Diabetes Mellitus, Deep Vein Thrombosis (DVT) Additional Family Medical History / Comment(s): Antiphospholipid antibody syndrome, Lupus, dementia. Medications and Allergies Home Medications Medication Instructions Recorded Confirmed Type Levothyroxine Sodium [Synthroid] 100 mcg PO DAILY 01/16/19 11/07/22 History Methenamine Hippurate 1 gm PO BID 07/12/19 11/07/22 History Mirabegron [Myrbetriq] 25 mg PO DAILY 10/08/19 11/07/22 History Fenofibrate [Lofibra] 160 mg PO HS tab 10/17/19 11/07/22 Rx Gabapentin [Neurontin] 400 mg PO TID cap 10/17/19 11/07/22 Rx Rivaroxaban [Xarelto] 20 mg PO HS tab 10/17/19 11/07/22 Rx Trimethoprim [Trimpex] 100 mg PO HS tab 10/17/19 11/07/22 Rx Promethazine [Phenergan] 25 mg PO Q6H PRN 11/30/19 11/07/22 History Levothyroxine Sodium [Synthroid] 125 mcg PO MOTUWETH 12/28/19 11/07/22 History Albuterol Inhaler [Ventolin Hfa 2 puff INHALATION RT-Q2H PRN 09/19/20 11/07/22 History Inhaler] Dexlansoprazole [Dexilant] 60 mg PO DAILY 09/19/20 11/07/22 History Galcanezumab-Gnlm [Emgality Pen] 120 mg SQ Q30D 09/19/20 11/07/22 History Meloxicam [Mobic] 15 mg PO DAILY 09/19/20 11/07/22 History Rizatriptan Benzoate [Rizatriptan] 5 mg PO BID PRN 09/19/20 11/07/22 History Sodium Chloride 0.9% Iv 1 dose IV DIRECTED 09/19/20 11/07/22 History Cyanocobalamin (Vitamin B-12) 1,000 mcg PO DAILY 06/01/21 11/07/22 History [Vitamin B-12] Ezetimibe [Zetia] 10 mg PO HS 06/01/21 11/07/22 History busPIRone HCL [Buspar] 30 mg PO BID 06/01/21 11/07/22 History Baclofen [Lioresal] 20 mg PO QID 06/02/21 11/07/22 History Fluticasone/Vilanterol [Breo 1 puff INHALATION RT-DAILY 09/27/21 11/07/22 History Ellipta 100-25 Mcg Inhaler] Ondansetron Odt [Zofran ODT] 8 mg PO TID PRN 09/27/21 11/07/22 History polyethylene glycoL 3350 [Miralax] 17 gm PO DAILY 09/27/21 11/07/22 History Fluticasone Nasal [place] [Flonase 2 spray EA NOSTRIL DAILY 04/26/22 11/07/22 History Nasal [place]] Levocetirizine Dihydrochloride 5 mg PO DAILY 04/26/22 11/07/22 History [Xyzal] [place] Carbonate [[place] 300 mg PO TID 04/26/22 11/07/22 History Carbonate ER] Metoclopramide [Reglan] 10 mg PO ACHS PRN 04/26/22 11/07/22 History traZODone HCL 200 mg PO HS 04/26/22 11/07/22 History Butalbit/Acetamin/Caff/Codeine 1 cap PO Q8H PRN 06/23/22 11/07/22 History [Butal/APAP/Caff/Cod 02-037-51-30MG] Dicyclomine HCl 20 mg PO Q6H PRN 06/23/22 11/07/22 History Ketoconazole 2% Shampoo [Nizoral] 1 applic TOPICAL DAILY PRN 06/23/22 11/07/22 History Lidocaine 4% [place] 1 spray TOPICAL Q8H PRN 06/23/22 11/07/22 History Ondansetron 4mg/2ml Injection 8 mg IVP Q8H PRN 06/23/22 11/07/22 History Prochlorperazine [Compro] 25 mg RECTAL Q8H PRN 06/23/22 11/07/22 History Rimegepant Sulfate [Nurtec Odt] 75 mg PO DAILY PRN 06/23/22 11/07/22 History Sucralfate [Carafate] 1 gm PO TID-W/MEALS PRN 06/23/22 11/07/22 History cloNIDine HCL [Kapvay] 0.2 mg PO DAILY 06/23/22 11/07/22 History modafiniL [Provigil] 200 - 400 mg PO DAILY PRN 06/23/22 11/07/22 History tiZANidine HCL 2 mg PO DAILY PRN 06/23/22 11/07/22 History Dexmethylphenidate HCl 10 mg PO DAILY 10/07/22 11/07/22 History [Dexmethylphenidate HCl ER] HYDROcodone/APAP 7.5-325MG [[place] 1 - 2 tab PO Q8HR PRN 10/07/22 11/07/22 History 7.5-325] Pioglitazone [Actos] 45 mg PO DAILY 10/07/22 11/07/22 History Semaglutide [Ozempic] 2 mg SQ TAYLOR 10/07/22 11/07/22 History cloNIDine HCL [Kapvay] 0.1 mg PO HS 10/07/22 11/07/22 History glipiZIDE 10 mg PO DAILY 10/07/22 11/07/22 History sitaGLIPtin [Januvia] 100 mg PO DAILY 10/07/22 11/07/22 History Brexpiprazole [Rexulti] 1 mg PO HS 11/07/22 11/07/22 History Famotidine 40 mg PO HS 11/07/22 11/07/22 History Glycopyrrolate [Robinul] 1 mg PO BID 11/07/22 11/07/22 History Metoprolol Succinate (ER) [Toprol 100 mg PO DAILY 11/07/22 11/07/22 History Xl] Phenazopyridine HCl [Uristat Ultra] 99.5 mg PO DAILY PRN 11/07/22 11/07/22 History cloNIDine HCL [Catapres] 0.1 mg PO HS 11/07/22 11/07/22 History diazePAM [Valium] 2.5 - 5 mg PO DAILY PRN 11/07/22 11/07/22 History Allergies Allergy/AdvReac Type Severity Reaction Status Date / Time peanut oil Allergy Severe Nausea & Verified 11/07/22 16:27 Vomiting,itching barium sulfate Allergy Anaphylaxis Verified 11/07/22 16:27 doxepin [Doxepin] Allergy Anaphylaxis Verified 11/07/22 16:27 ephedrine Allergy Chest Verified 11/07/22 16:27 Pain/tachycardia ertapenem [From Invanz] Allergy Rash/Hives- Verified 11/07/22 16:27 like a chemical burn peanut Allergy Anaphylaxis Verified 11/07/22 16:27 pseudoephedrine Allergy Chest Pain Verified 11/07/22 16:27 Sulfa (Sulfonamide Allergy Nausea & Verified 11/07/22 16:27 Antibiotics) Vomiting, DEHYDRATION sumatriptan [From Imitrex] Allergy affects Verified 11/07/22 16:27 vision-unable to see for hrs. doxycycline AdvReac Nausea & Verified 11/07/22 16:27 Vomiting & Diarrhea pseudoephedrine HCl AdvReac chest Verified 11/07/22 16:27 [From Sudafed] pain/tachycardia sulfamethoxazole AdvReac Nausea & Verified 11/07/22 16:27 [From Bactrim] Vomiting Physical Exam Vitals: Vital Signs Temp Pulse Pulse Resp BP BP Pulse Ox 11/07/22 16:39 98.5 F 83 16 119/84 97 11/07/22 15:00 72 20 146/88 98 11/07/22 14:05 68 16 130/68 98 11/07/22 13:47 68 20 130/68 98 11/07/22 13:03 98.8 F 92 16 144/82 96 Intake and Output 11/07/22 11/07/22 11/07/22 06:59 14:59 22:59 Other: Weight 115.666 kg 115.666 kg -GENERAL: The patient is alert and oriented x3, not in any acute distress. Obese HEENT: Pupils are round and equally reacting to light. EOMI. No scleral icterus. No conjunctival pallor. Normocephalic, atraumatic. No pharyngeal erythema. No thyromegaly. CARDIOVASCULAR: S1 and S2 present. No murmurs, rubs, or gallops. PULMONARY: Chest is clear to auscultation, no wheezing or crackles. ABDOMEN: Soft, nontender, nondistended, normoactive bowel sounds. No palpable organomegaly. MUSCULOSKELETAL: No joint swelling or deformity. -EXTREMITIES: No cyanosis, clubbing, or pedal edema. right arm PICC line (chronic, patient has it outpatient too) NEUROLOGICAL: Gross neurological examination did not reveal any focal deficits. SKIN: No rashes. no petechiae. Results CBC & Chem 7: 11/07/22 13:47 11/07/22 13:47 Labs: Abnormal Lab Results - Last 24 Hours (Table) 11/07/22 Range/Units 13:47 Chloride 110 H (98-107) mmol/L Carbon Dioxide 19 L (22-30) mmol/L Glucose 106 H (74-99) mg/dL Thrombosis Risk Factor Assmnt - Choose All That Apply Any of the Below Risk Factors Present?: Yes Each Factor Represents 1 point: Age 41-60 years Other Risk Factors: Yes Each Risk Factor Represents 3 Points: Family history of DVT/PE, Positive Lupus Anticoagulant Other congenital or acquired thrombophilia - If yes, enter type in comment: Yes Thrombosis Risk Factor Assessment Total Risk Factor Score: 7 Thrombosis Risk Factor Assessment Level: High Risk Assessment and Plan Assessment: Acute Bacteremia related to her right arm chronic PICC line 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 Continue same treatment. Continue with sy mptomatic treatment. Resume home medication. Monitor lytes and vitals. DVT and GI prophylaxis. Further recommendations as per clinical course of the patient DVT prophylaxis: Xarelto GI Prophylaxis: ppi Prognosis is guarded
[2022-11-07] MEDS: busPIRone HCl 10 MG TAB PO SCH (21:07)
[2022-11-07] MEDS: HYDROcodone/APAP 7.5-325MG 1 EACH TAB PO PRN (21:07)
[2022-11-07] MEDS: FENOFIBRATE 160 MG TAB PO SCH (21:08)
[2022-11-07] MEDS: GLYCOPYRROLATE 1 MG TAB PO SCH (21:08)
[2022-11-07] MEDS: RIVAROXABAN 20 MG TAB PO SCH (21:08)
[2022-11-07] MEDS: FAMOTIDINE 20 MG TAB PO SCH (21:08)
[2022-11-07] MEDS: LITHIUM CARBONATE 300 MG CAP PO SCH (21:08)
[2022-11-07] MEDS: EZETIMIBE 10 MG TAB PO SCH (21:09)
[2022-11-07] MEDS: traZODone HCL 100 MG TAB PO SCH (21:09)
[2022-11-07] MEDS: GABAPENTIN 400 MG CAP PO SCH (21:10)
[2022-11-07] MEDS: Brexpiprazole [Rexulti] 1 MG Tablet PO SCH (21:11)
[2022-11-07] MEDS ORDERED: polyethylene glycoL 3350 17 GM POWD.PACK PO PRN (21:26)
[2022-11-07] MEDS: SYMBICORT 160-4.5 MCG INHALER INHALATION SCH (21:28)
[2022-11-07] MEDS ORDERED: cloNIDine HCL 0.1 MG TAB PO SCH (21:30)
--- NOTE | 2022-11-07 22:03 | P.CONS ---
History of Present Illness - Reason for Consult Consult date: 11/07/22 Positive blood culture Requesting physician: Jorden E Sheet - Chief Complaint Rigors and chills/positive blood culture x one day - History of Present Illness Patient is a 42-year-old female with a past medical history significant for mitochondrial disease and currently being worked up for muscular dystrophy by her neurologist patient has been using peripheral nutrition for the last 4-5 years previously she did have ports and a previous history of ports infection requiring removal of them [place] was removed in June 2022 afterwards the patient did get a PICC line with the patient currently has at the patient has been using for hydration, patient mentioned a few days ago she started having a problem with rigors and chills and 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 blood cultures from the PICC line as well as peripheral on 11/05/2022 which came back positive with gram-positive cocci for which the patient presented to the hospital patient currently denies having any headache or URI symptoms no chest pain or shortness of breath occasional cough and some nausea but no vomiting no abdominal pain or any diarrhea patient denies having any problems with the port itself except some swelling but is no redness she did have a good blood draw and is infusing properly Review of Systems Positive point has been mentioned in the HPI rest of the systems are negative Past Medical History Past Medical History: Asthma, CVA/TIA, Diabetes Mellitus, Deep Vein Thrombosis (DVT), GERD/Reflux, Hyperlipidemia, Hypertension, Neurologic Disorder, Sleep Apnea/CPAP/BIPAP, Syncope, Thyroid Disorder Additional Past Medical History / Comment(s): Patient states recent low grade fevers thinks may be related to blood clot in picc linecausing infection ( ER 1 month ago dx as cellulitis). States picc line is not working right. 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 Lymphedema left arm d/t DVTs, avoid use of left arm for BP, IV, blood draws. Vtach, pituitary microadenoma, patent foramen ovale, narcolepsy, gastropareis, hx orthostatic hypotension/syncope, migraines with hemiplegia, pernicious anemia, polycystic ovarian syndrome, neuropathy bilateral legs/feet/arms, neurogenic bladder with UTI's, stress incontinence, uses wheelchair, able to transfer and walk few steps, sleep apnea- cpap lupus anticoagulation syndrome. enlarged liver last scan > 25cm. recent reoccurence of severe abdominal pain and nausea. History of Any Multi-Drug Resistant Organisms: ESBL, MRSA Year Discovered:: 03/09/17 MRSA/ 05/17/18 ESBL MDRO Source:: MRSA LEFT ARM,/ESBL URINE ECOLI Past Surgical History: Cholecystectomy, Uterine Ablation Additional Past Surgical History / Comment(s): Colonscopy/EGD, GERSON, PORT-A -CATH INSERTION X3. picc line currently Past Anesthesia/Blood Transfusion Reactions: Previous Problems w/ Anesthesia, Motion Sickness Additional Past Anesthesia/Blood Transfusion Reaction / Comm: Patient states difficult to sedate. blood transfusions no issues Past Psychological History: Anxiety, Bipolar, Depression, PTSD Smoking Status: Never smoker Past Alcohol Use History: Rare Past Drug Use History: None Reported - Past Family History Brother(s) Family Medical History: Diabetes Mellitus, Hyperlipidemia, Hypertension Additional Family Medical History / Comment(s): Patient states she has 1 brother with no major medical problems. Father History Unknown: Yes Family Medical History: Diabetes Mellitus, Hyperlipidemia, Hypertension Mother Family Medical History: CVA/TIA, Diabetes Mellitus, Deep Vein Thrombosis (DVT) Additional Family Medical History / Comment(s): Antiphospholipid antibody syndrome, Lupus, dementia. Medications and Allergies Home Medications Medication Instructions Recorded Confirmed Type Levothyroxine Sodium [Synthroid] 100 mcg PO DAILY 01/16/19 11/07/22 History Methenamine Hippurate 1 gm PO BID 07/12/19 11/07/22 History Mirabegron [Myrbetriq] 25 mg PO DAILY 10/08/19 11/07/22 History Fenofibrate [Lofibra] 160 mg PO HS tab 10/17/19 11/07/22 Rx Gabapentin [Neurontin] 400 mg PO TID cap 10/17/19 11/07/22 Rx Rivaroxaban [Xarelto] 20 mg PO HS tab 10/17/19 11/07/22 Rx Trimethoprim [Trimpex] 100 mg PO HS tab 10/17/19 11/07/22 Rx Promethazine [Phenergan] 25 mg PO Q6H PRN 11/30/19 11/07/22 History Levothyroxine Sodium [Synthroid] 125 mcg PO MOTUWETH 12/28/19 11/07/22 History Albuterol Inhaler [Ventolin Hfa 2 puff INHALATION RT-Q2H PRN 09/19/20 11/07/22 History Inhaler] Dexlansoprazole [Dexilant] 60 mg PO DAILY 09/19/20 11/07/22 History Galcanezumab-Gnlm [Emgality Pen] 120 mg SQ Q30D 09/19/20 11/07/22 History Meloxicam [Mobic] 15 mg PO DAILY 09/19/20 11/07/22 History Rizatriptan Benzoate [Rizatriptan] 5 mg PO BID PRN 09/19/20 11/07/22 History Sodium Chloride 0.9% Iv 1 dose IV DIRECTED 09/19/20 11/07/22 History Cyanocobalamin (Vitamin B-12) 1,000 mcg PO DAILY 06/01/21 11/07/22 History [Vitamin B-12] Ezetimibe [Zetia] 10 mg PO HS 06/01/21 11/07/22 History busPIRone HCL [Buspar] 30 mg PO BID 06/01/21 11/07/22 History Baclofen [Lioresal] 20 mg PO QID 06/02/21 11/07/22 History Fluticasone/Vilanterol [Breo 1 puff INHALATION RT-DAILY 09/27/21 11/07/22 History Ellipta 100-25 Mcg Inhaler] Ondansetron Odt [Zofran ODT] 8 mg PO TID PRN 09/27/21 11/07/22 History polyethylene glycoL 3350 [Miralax] 17 gm PO DAILY 09/27/21 11/07/22 History Fluticasone Nasal [place] [Flonase 2 spray EA NOSTRIL DAILY 04/26/22 11/07/22 History Nasal [place]] Levocetirizine Dihydrochloride 5 mg PO DAILY 04/26/22 11/07/22 History [Xyzal] [place] Carbonate [[place] 300 mg PO TID 04/26/22 11/07/22 History Carbonate ER] Metoclopramide [Reglan] 10 mg PO ACHS PRN 04/26/22 11/07/22 History traZODone HCL 200 mg PO HS 04/26/22 11/07/22 History Butalbit/Acetamin/Caff/Codeine 1 cap PO Q8H PRN 06/23/22 11/07/22 History [Butal/APAP/Caff/Cod 52-117-95-30MG] Dicyclomine HCl 20 mg PO Q6H PRN 06/23/22 11/07/22 History Ketoconazole 2% Shampoo [Nizoral] 1 applic TOPICAL DAILY PRN 06/23/22 11/07/22 History Lidocaine 4% [place] 1 spray TOPICAL Q8H PRN 06/23/22 11/07/22 History Ondansetron 4mg/2ml Injection 8 mg IVP Q8H PRN 06/23/22 11/07/22 History Prochlorperazine [Compro] 25 mg RECTAL Q8H PRN 06/23/22 11/07/22 History Rimegepant Sulfate [Nurtec Odt] 75 mg PO DAILY PRN 06/23/22 11/07/22 History Sucralfate [Carafate] 1 gm PO TID-W/MEALS PRN 06/23/22 11/07/22 History cloNIDine HCL [Kapvay] 0.2 mg PO DAILY 06/23/22 11/07/22 History modafiniL [Provigil] 200 - 400 mg PO DAILY PRN 06/23/22 11/07/22 History tiZANidine HCL 2 mg PO DAILY PRN 06/23/22 11/07/22 History Dexmethylphenidate HCl 10 mg PO DAILY 10/07/22 11/07/22 History [Dexmethylphenidate HCl ER] HYDROcodone/APAP 7.5-325MG [[place] 1 - 2 tab PO Q8HR PRN 10/07/22 11/07/22 History 7.5-325] Pioglitazone [Actos] 45 mg PO DAILY 10/07/22 11/07/22 History Semaglutide [Ozempic] 2 mg SQ TAYLOR 10/07/22 11/07/22 History cloNIDine HCL [Kapvay] 0.1 mg PO HS 10/07/22 11/07/22 History glipiZIDE 10 mg PO DAILY 10/07/22 11/07/22 History sitaGLIPtin [Januvia] 100 mg PO DAILY 10/07/22 11/07/22 History Brexpiprazole [Rexulti] 1 mg PO HS 11/07/22 11/07/22 History Famotidine 40 mg PO HS 11/07/22 11/07/22 History Glycopyrrolate [Robinul] 1 mg PO BID 11/07/22 11/07/22 History Metoprolol Succinate (ER) [Toprol 100 mg PO DAILY 11/07/22 11/07/22 History Xl] Phenazopyridine HCl [Uristat Ultra] 99.5 mg PO DAILY PRN 11/07/22 11/07/22 History cloNIDine HCL [Catapres] 0.1 mg PO HS 11/07/22 11/07/22 History diazePAM [Valium] 2.5 - 5 mg PO DAILY PRN 11/07/22 11/07/22 History Allergies Allergy/AdvReac Type Severity Reaction Status Date / Time peanut oil Allergy Severe Nausea & Verified 11/07/22 16:27 Vomiting,itching barium sulfate Allergy Anaphylaxis Verified 11/07/22 16:27 doxepin [Doxepin] Allergy Anaphylaxis Verified 11/07/22 16:27 ephedrine Allergy Chest Verified 11/07/22 16:27 Pain/tachycardia ertapenem [From Invanz] Allergy Rash/Hives- Verified 11/07/22 16:27 like a chemical burn peanut Allergy Anaphylaxis Verified 11/07/22 16:27 pseudoephedrine Allergy Chest Pain Verified 11/07/22 16:27 Sulfa (Sulfonamide Allergy Nausea & Verified 11/07/22 16:27 Antibiotics) Vomiting, DEHYDRATION sumatriptan [From Imitrex] Allergy affects Verified 11/07/22 16:27 vision-unable to see for hrs. doxycycline AdvReac Nausea & Verified 11/07/22 16:27 Vomiting & Diarrhea pseudoephedrine HCl AdvReac chest Verified 11/07/22 16:27 [From Sudafed] pain/tachycardia sulfamethoxazole AdvReac Nausea & Verified 11/07/22 16:27 [From Bactrim] Vomiting Physical Exam Vitals: Vital Signs Temp Pulse Resp BP Pulse Ox 11/07/22 13:47 68 20 130/68 98 11/07/22 13:03 98.8 F 92 16 144/82 96 Intake and Output 11/07/22 11/07/22 11/07/22 06:59 14:59 22:59 Other: Weight 115.666 kg GENERAL DESCRIPTION: Middle-aged female lying in bed, no distress. No tachypnea or accessory muscle of respiration use. HEENT: Shows Pallor , no scleral icterus. Oral mucous membrane is dry. No phar yngeal erythema or thrush NECK: Trachea central, no thyromegaly. LUNGS: Unlabored breathing. Clear to auscultation anteriorly. No wheeze or crackle. HEART: S1, S2, regular rate and rhythm. No loud murmur ABDOMEN: Soft, no tenderness , guarding or rigidity, no organomegaly EXTREMITIES: No edema of feet. SKIN: No rash, no masses palpable. NEUROLOGICAL: The patient is awake, alert, oriented x3, mood and affect normal. Results CBC & Chem 7: 11/07/22 13:47 11/07/22 13:47 Labs: Abnormal Lab Results - Last 24 Hours (Table) 11/07/22 Range/Units 13:47 Chloride 110 H (98-107) mmol/L Carbon Dioxide 19 L (22-30) mmol/L Glucose 106 H (74-99) mg/dL Assessment and Plan (1) Bacteremia Current Visit: Yes Status: Acute Code(s): R78.81 - BACTEREMIA SNOMED Code(s): 3269812 Plan: 1patient with a positive blood culture with gram-positive cocci apparently staphylococcus epidermidis which could have been disregarded however this patient to have a PICC line and could be a PICC line infection 2blood culture has been repeated peripherally and will also repeat from the PICC line 3Vancomycin pharmacy to dose target trough of 15 while watching kidney function and Vanco trough closely We will follow on clinical condition and cultures to further adjust medication if needed Thank you for this consultation will follow this patient with you Time with Patient: Greater than 30
[2022-11-07] MEDS: BACLOFEN 10 MG TAB PO PRN (23:15)
[2022-11-08] MEDS: VANCOMYCIN 2,000 MG in SODIUM CHLORIDE 0.9% 500 ML 500 ML IVPB SCH ×2 (06:21→17:30)
[2022-11-08] MEDS: PANTOPRAZOLE 40 MG TABLET PO SCH (06:21)
[2022-11-08] MEDS: LEVOTHYROXINE 100 MCG TAB PO SCH (06:21)
[2022-11-08] MEDS: LEVOTHYROXINE 125 MCG TAB PO SCH (06:21)
[2022-11-08] MEDS: SYMBICORT 160-4.5 MCG INHALER INHALATION SCH ×2 (07:43→20:48)
[2022-11-08] MEDS: GABAPENTIN 400 MG CAP PO SCH ×3 (08:43→21:49)
[2022-11-08] MEDS: LITHIUM CARBONATE 300 MG CAP PO SCH ×3 (08:43→21:59)
[2022-11-08] MEDS: PIOGLITAZONE 45 MG TAB PO SCH (08:43)
[2022-11-08] MEDS: CYANOCOBALAMIN 500 MCG TAB PO SCH (08:43)
[2022-11-08] MEDS: FLUTICASONE 50MCG/SPRAY NASAL 16GM EA NOSTRIL SCH (08:43)
[2022-11-08] MEDS: busPIRone HCl 10 MG TAB PO SCH ×2 (08:43→21:48)
[2022-11-08] MEDS: GLYCOPYRROLATE 1 MG TAB PO SCH ×2 (08:43→21:53)
[2022-11-08] MEDS ORDERED: LINAGLIPTIN 5 MG TABLET PO SCH (09:00)
[2022-11-08] MEDS ORDERED: MELOXICAM 7.5 MG TAB PO SCH (09:00)
[2022-11-08] MEDS: BACLOFEN 10 MG TAB PO PRN (09:02)
[2022-11-08] MEDS: HYDROcodone/APAP 7.5-325MG 1 EACH TAB PO PRN ×2 (09:03→21:58)
[2022-11-08 09:25] LABS: African American GFR (CKD) 124.7 (60.0-200.0); Anion Gap 8.7 mmol/L (10.00-18.00); BUN/Creat Ratio 9.14 Ratio (12.00-20.00); Blood Urea Nitrogen 6.4 mg/dL (9.0-27.0); Calcium 9.2 mg/dL (8.7-10.3); Carbon Dioxide 21.3 mmol/L (20.0-27.5); Magnesium 1.8 mg/dL (1.5-2.4); Non-African American GFR(CKD) 107.6 (60.0-200.0)
[2022-11-08] MEDS: polyethylene glycoL 3350 17 GM POWD.PACK PO SCH (11:22)
[2022-11-08] MEDS ORDERED: OZEMPIC SQ SCH (11:30)
--- NOTE | 2022-11-08 12:09 | P.PN ---
Subjective This is a pleasant 42 years old female from the community who presents with positive blood culture. Patient has history of mitochondrial disease and his been followed closely with the neurologist Dr. Vickers office and she sees his nurse practitioner there. Patient states that currently also she is been evaluated for muscular dystrophy. Also she is on parenteral nutrition for the last 4-5 years using PICC line on several occasions for this purpose and she has a visiting nurse will come to help her with the infusion once a week. Also she says that she has history of lupus. She has to depend on parenteral nutrition because she has no sense of thirst and she felt several other measures like putting an alarm and she's been having a problem from not drinking enough and because of this she started receiving hydration and through the PICC line. Other than that usually she puts the IV fluid for herself since 2018. june 2022 picc line placed because of an infected port, pt had to get oral antibiotics for cellulitis around picc line site. does iv hydration daily 10-12 hours through picc line. wears brief at night. Last Tuesday she felt tired and feverish, she checked her temperature was 101, shows some headache nausea and generalized body aches. So her visiting nurse floyd some blood culture from her PICC line and when the results came back positive she contacted her PCP Dr. Ryan who referred her to the hospital. Also patient follow up with Dr. Rivero for her diabetes mellitus and Emily disease, she is on several medications O's for diabetes including ozempic, Januvia, glipizide and Actos she complains from mild headache currently associated with some dizziness and lightheadedness but denies any weakness or numbness. No vomiting only nausea, decreased appetite but no abdominal pain, she feels constipated because she forgot to take her laxative. No chest pain dyspnea or cough and No smoking alcohol or illicit drugs. Her vitals are stable and afebrile while in the emergency room She has unremarkable labs including CBC, BMP Viruses were checked and they were negative including RSV, influenza and howard/covid in the emergency room she was started on IV vancomycin with infectious disease consult 11/08/2022 Patient was admitted with bacteremia and subjective fever and documented at home however no more fever while here in the hospital. Her home medication was restarted, medication were reviewed with the patient and bedside nurse, unnecessary medication were stopped, I discontinued Mobic to decrease chances of could do nephrotoxicity, patient informed and she agrees. Other medication reviewed. She denies any other symptoms today. Creatinine 0.7 Blood pressure 87/57, we'll keep monitor blood pressure closely. We will start the patient on normal saline 75 mL/h Patient he vomited by ID team, repeated blood culture including from the PICC line on the right arm is pending Patient on IV vancomycin per ID team patient states she is on Xarelto for her DVT and lupus anticoagulant history Monitor labs Review of systems CONSTITUTIONAL: No fever, no malaise, no fatigue. HEENT: No recent visual problems or hearing problems. Denied any sore throat. CARDIOVASCULAR: No orthopnea, PND, no palpitations, no syncope. PULMONARY: No shortness of breath, no cough, no hemoptysis. GASTROINTESTINAL: No diarrhea, no nausea, no vomiting, no abdominal pain. Normoactive bowel sounds. NEUROLOGICAL: No headaches, no weakness, no numbness. Active Medications Generic Name Dose Route Start Last Admin Trade Name Freq PRN Reason Stop Dose Admin Acetam/Butalbital/Caffeine/Codeine 1 each 11/07/22 18:11 11/07/22 23:14 Buta/Apap/Caf/Cod [id number] Cap PO 1 each Q8H PRN Administration Migraine Headache Acetaminophen 650 mg 11/07/22 15:10 Acetaminophen Tab 325 Mg Tab PO Q6HR PRN Mild Pain or Fever > 100.5 Hydrocodone Bitart/Acetaminophen 1 each 11/07/22 18:11 11/08/22 09:03 Hydrocodone/Apap 7.5-325mg 1 Each Tab PO 1 each Q8HR PRN Administration Pain Albuterol Sulfate 2.5 mg 11/07/22 18:11 Albuterol Nebulized 2.5 Mg/3 Ml INHALATION RT-Q2H PRN Shortness Of Breath Baclofen 10 mg 11/08/22 13:00 Baclofen 10 Mg Tab PO QID JOSE Budesonide/Formoterol Fumarate 2 puff 11/07/22 20:00 11/08/22 07:43 Symbicort 160-4.5 Mcg Inhaler INHALATION 2 puff RT-BID JOSE Administration Buspirone HCl 30 mg 11/07/22 21:00 11/08/22 08:43 Buspirone Hcl 10 Mg Tab PO 30 mg BID JOSE Administration Clonidine 0.1 mg 11/07/22 21:30 11/07/22 23:15 Clonidine Hcl 0.1 Mg Tab PO 0.1 mg HS JOSE Administration Cyanocobalamin 1,000 mcg 11/08/22 09:00 11/08/22 08:43 Cyanocobalamin 500 Mcg Tab PO 1,000 mcg DAILY JOSE Administration Dicyclomine HCl 20 mg 11/07/22 18:11 Dicyclomine 20 Mg Tab PO Q6H PRN GI Upset Ezetimibe 10 mg 11/07/22 21:00 11/07/22 21:09 Ezetimibe 10 Mg Tab PO 10 mg HS JOSE Administration Famotidine 40 mg 11/07/22 21:00 11/07/22 21:08 Famotidine 20 Mg Tab PO 40 mg HS JOSE Administration Fenofibrate 160 mg 11/07/22 21:00 11/07/22 21:08 Fenofibrate 160 Mg Tab PO 160 mg HS JOSE Administration Fluticasone Propionate 2 spray 11/08/22 09:00 11/08/22 08:43 Fluticasone 50mcg/[place] Nasal 16gm EA NOSTRIL 2 spray DAILY JOSE Administration Gabapentin 400 mg 11/07/22 22:00 11/08/22 08:43 Gabapentin 400 Mg Cap PO 400 mg TID JOSE Administration Vancomycin HCl 2,000 mg/ 500 mls @ 167 mls/hr 11/08/22 06:00 11/08/22 06:21 Sodium Chloride IVPB 167 mls/hr Q12H JOSE Administration Sodium Chloride 1,000 mls @ 20 mls/hr 11/07/22 15:15 11/07/22 15:20 Saline 0.9% IV 20 mls/hr .Q24H JOSE Administration Sodium Chloride 1,000 mls @ 75 mls/hr 11/08/22 12:15 Saline 0.9% IV .[id number] OJSE Levothyroxine Sodium 100 mcg 11/08/22 06:30 11/08/22 06:21 Levothyroxine 100 Mcg Tab PO 100 mcg DAILY@0630 JOSE Administration Levothyroxine Sodium 125 mcg 11/08/22 06:30 11/08/22 06:21 Levothyroxine 125 Mcg Tab PO 125 mcg MoTuWeTh@0630 JOSE Administration [place] Carbonate 300 mg 11/07/22 22:00 11/08/22 08:43 [place] Carbonate 300 Mg Cap PO 300 mg TID JOSE Administration Metoclopramide HCl 10 mg 11/07/22 18:11 Metoclopramide 10 Mg Tab PO ACHS PRN Nausea Miscellaneous Information 0 each 11/10/22 05:00 Vancomycin Trough Due 1 Each Misc MISCELLANE 11/10/22 05:01 DIRECTED ONE Naloxone HCl 0.2 mg 11/07/22 15:10 Naloxone 0.4 Mg/Ml 1 Ml Vial IV Q2M PRN Opioid Reversal Brexpiprazole [ 1 mg 11/07/22 21:00 11/07/22 21:11 Rexulti] 1 Mg Tablet PO Not Given HS JOSE Dexmethylphenidate 10 mg 11/08/22 09:00 11/08/22 08:42 Hcl [ PO Not Given Dexmethylphenidate DAILY [facility] Hcl Er] 10 Mg Capsule) Methenamine 1 gm 11/07/22 21:00 11/08/22 08:42 Hippurate [ PO Not Given Methenamine BID [facility] Hippurate] 1 Gm Tablet Mirabegron [ 25 mg 11/08/22 09:00 11/08/22 08:42 Myrbetriq] 25 Mg Tab PO Not Given .Er.24h DAILY [facility] Glycopyrrolate 1 Mg 1 each 11/08/22 21:00 Tab PO BID [facility] Januvia 100 Mg 100 each 11/09/22 09:00 Tablet PO DAILY [facility] Ozempic 8 Mg/3 Ml 2 each 11/08/22 11:30 Pen SQ Q7D JOSE Ondansetron HCl 8 mg 11/07/22 18:11 Ondansetron Odt 8 Mg Tab.Rapdis PO TID PRN Nausea Pantoprazole Sodium 40 mg 11/08/22 07:30 11/08/22 06:21 Pantoprazole 40 Mg Tablet PO 40 mg [id number] JOSE Administration Pioglitazone HCl 45 mg 11/08/22 09:00 11/08/22 08:43 Pioglitazone 45 Mg Tab PO 45 mg DAILY JOSE Administration Polyethylene Glycol 17 gm 11/08/22 10:00 11/08/22 11:22 Polyethylene Glycol 3350 17 Gm Powd.Pack PO 17 gm DAILY JOSE Administration Rivaroxaban 20 mg 11/07/22 21:00 11/07/22 21:08 Rivaroxaban 20 Mg Tab PO 20 mg HS JOSE Administration Protocol Sucralfate 1 gm 11/07/22 18:11 Sucralfate 1 Gm Tab PO TID-W/MEALS PRN GI Upset Tizanidine HCl 2 mg 11/07/22 18:11 Tizanidine 4 Mg Tab PO DAILY PRN Muscle Pain Trazodone HCl 200 mg 11/07/22 21:00 11/07/22 21:09 Trazodone Hcl 100 Mg Tab PO 200 mg HS JOSE Administration Objective - Vital Signs Vital signs: Vital Signs Temp 98.7 F 11/08/22 08:00 Pulse 70 11/08/22 08:00 Resp 16 11/08/22 08:00 BP 87/57 11/08/22 08:00 Pulse Ox 97 11/08/22 08:00 FiO2 Intake & Output 11/07/22 11/08/22 11/08/22 18:59 06:59 18:59 Weight 115.666 kg Other: # Voids 2 - Exam -GENERAL: The patient is alert and oriented x3, not in any acute distress. Obese HEENT: Pupils are round and equally reacting to light. EOMI. No scleral icterus. No conjunctival pallor. Normocephalic, atraumatic. No pharyngeal erythema. No thyromegaly. CARDIOVASCULAR: S1 and S2 present. No murmurs, rubs, or gallops. PULMONARY: Chest is clear to auscultation, no wheezing or crackles. ABDOMEN: Soft, nontender, nondistended, normoactive bowel sounds. No palpable organomegaly. MUSCULOSKELETAL: No joint swelling or deformity. -EXTREMITIES: No cyanosis, clubbing, or pedal edema. right arm PICC line (chronic, patient has it outpatient too) NEUROLOGICAL: Gross neurological examination did not reveal any focal deficits. SKIN: No rashes. no petechiae. 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 Continue same treatment. Continue with symptomatic treatment. Resume home medication. Monitor lytes and vitals. DVT and GI prophylaxis. Further recommendations as per clinical course of the patient DVT prophylaxis: Xarelto GI Prophylaxis: ppi Prognosis is guarded
[2022-11-08] MEDS: BACLOFEN 10 MG TAB PO SCH ×3 (12:16→21:49)
[2022-11-08] MEDS: SODIUM CHLORIDE 0.9% 1,000 ML IV SCH ×3 (12:21→20:35)
[2022-11-08] MEDS: ONDANSETRON ODT 8 MG TAB.RAPDIS PO PRN (18:59)
[2022-11-08] MEDS: EZETIMIBE 10 MG TAB PO SCH (21:48)
[2022-11-08] MEDS: FENOFIBRATE 160 MG TAB PO SCH (21:49)
[2022-11-08] MEDS: traZODone HCL 100 MG TAB PO SCH (21:49)
[2022-11-08] MEDS: FAMOTIDINE 20 MG TAB PO SCH (21:49)
[2022-11-08] MEDS: Brexpiprazole [Rexulti] 1 MG Tablet PO SCH (21:50)
[2022-11-08] MEDS: RIVAROXABAN 20 MG TAB PO SCH (21:59)
--- NOTE | 2022-11-08 22:44 | P.PN ---
Subjective Progress Note Date: 11/08/22 Principal diagnosis: Bacteremia Patient is a 42-year-old female with a past medical he significant for mitochondrial disorder in this patient with a history of multiple Mediport infection currently do have a right arm PICC line placed in June 2022 patient did have a positive blood culture done in the outpatient setting for fever and chills. On today's evaluation that is 11/08/2022 patient did have a low-grade fever of 99 F last night however the patient is afebrile since then, the patient denies having any chest pain or shortness with or cough no nausea vomiting no abdominal pain no diarrhea Objective - Vital Signs Vital signs: Vital Signs Temp 98.7 F 11/08/22 08:00 Pulse 70 11/08/22 08:00 Resp 16 11/08/22 08:00 BP 87/57 11/08/22 08:00 Pulse Ox 97 11/08/22 08:00 FiO2 Intake & Output 11/07/22 11/08/22 11/08/22 18:59 06:59 18:59 Weight 115.666 kg Other: # Voids 2 - Exam GENERAL DESCRIPTION: Middle-age female lying in bed in no distress RESPIRATORY SYSTEM: Unlabored breathing , decreased breath sounds at bases HEART: S1 S2 regular rate and rhythm , ABDOMEN: Soft , no tenderness EXTREMITIES: No edema feet - Labs CBC & Chem 7: 11/07/22 13:47 11/08/22 04:35 Labs: Abnormal Lab Results - Last 24 Hours (Table) 11/07/22 11/08/22 Range/Units 13:47 04:35 Chloride 110 H (98-107) mmol/L Carbon Dioxide 19 L (22-30) mmol/L Anion Gap 8.70 L (10.00-18.00) mmol/L BUN 6.4 L (9.0-27.0) mg/dL BUN/Creatinine Ratio 9.14 L (12.00-20.00) Ratio Glucose 106 H 115 H (74-99) mg/dL Assessment and Plan (1) Bacteremia Current Visit: Yes Status: Acute Code(s): R78.81 - BACTEREMIA SNOMED Code(s): 5028706 Plan: 1patient with a positive blood culture with gram-positive cocci apparently staphylococcus epidermidis which could have been disregarded however this patient to have a PICC line and could be a PICC line infection 2blood culture has been repeated peripherally as well as from the PICC line, which are currently pending 3patient to continue Vancomycin pharmacy to dose target trough of 15 while watching kidney function and Vanco trough closely Time with Patient: Less than 30
[2022-11-09 03:15] VITALS: RESP 16
[2022-11-09] MEDS: ONDANSETRON ODT 8 MG TAB.RAPDIS PO PRN (04:40)
[2022-11-09] MEDS: SODIUM CHLORIDE 0.9% 1,000 ML IV SCH (04:42)
[2022-11-09] MEDS: LEVOTHYROXINE 100 MCG TAB PO SCH (06:26)
[2022-11-09] MEDS: LEVOTHYROXINE 125 MCG TAB PO SCH (06:26)
[2022-11-09] MEDS: PANTOPRAZOLE 40 MG TABLET PO SCH (06:26)
[2022-11-09] MEDS: VANCOMYCIN 2,000 MG in SODIUM CHLORIDE 0.9% 500 ML 500 ML IVPB SCH (06:27)
[2022-11-09 07:38] VITALS: BP 118/77; PULSE 75; TEMP 98.7
[2022-11-09] MEDS: SYMBICORT 160-4.5 MCG INHALER INHALATION SCH (08:20)
[2022-11-09] MEDS: busPIRone HCl 10 MG TAB PO SCH (08:42)
[2022-11-09] MEDS: BACLOFEN 10 MG TAB PO SCH ×2 (08:42→12:31)
[2022-11-09] MEDS: CYANOCOBALAMIN 500 MCG TAB PO SCH (08:42)
[2022-11-09] MEDS: JANUVIA 100 MG TABLET PO SCH ×2 (08:43→08:49)
[2022-11-09] MEDS: GLYCOPYRROLATE 1 MG TAB PO SCH ×2 (08:43→08:49)
[2022-11-09] MEDS: FLUTICASONE 50MCG/SPRAY NASAL 16GM EA NOSTRIL SCH (08:43)
[2022-11-09] MEDS: GABAPENTIN 400 MG CAP PO SCH (08:43)
[2022-11-09] MEDS: PIOGLITAZONE 45 MG TAB PO SCH (08:43)
[2022-11-09] MEDS: LITHIUM CARBONATE 300 MG CAP PO SCH (08:43)
[2022-11-09] MEDS: polyethylene glycoL 3350 17 GM POWD.PACK PO SCH (08:43)
[2022-11-09 09:09] LABS: Basophils # (A) 0.02 X 10*3/uL (0.00-0.10); Basophils % (A) 0.5 %; Eosinophils # (A) 0.12 X 10*3/uL (0.04-0.35); Eosinophils % (A) 2.8 %; HCT 32.9 % (37.2-46.3); HGB 10.3 g/dL (12.0-15.0); Immature Grans, Automated 0.7 %; Lymphocytes # (A) 0.87 X 10*3/uL (0.90-5.00); Lymphocytes % (A) 20.1 %; MCHC 31.3 g/dL (32.0-37.0); MCV 92.7 fL (80.0-97.0); Mean Platelet Volume 9.7 fL (9.5-12.2); Monocytes # (A) 0.54 X 10*3/uL (0.20-1.00); Monocytes % (A) 12.5 %; NRBC Per 100 WBC 0 /100 WBCS (0.0-0.0); Neutrophils # (A) 2.74 X 10*3/uL (1.80-7.70); Neutrophils % (A) 63.4 %; Platelet Count 284 X 10*3/uL (140-440); RBC 3.55 X 10*6/uL (4.10-5.20); RDW 14.6 % (11.5-14.5); WBC 4.32 X 10*3/uL (4.50-10.00)
[2022-11-09 09:18] LABS: African American GFR (CKD) 106.1 (60.0-200.0); BUN/Creat Ratio 8.38 Ratio (12.00-20.00); Blood Urea Nitrogen 6.7 mg/dL (9.0-27.0); Calcium 9.7 mg/dL (8.7-10.3); Non-African American GFR(CKD) 91.6 (60.0-200.0); Potassium 4.3 mmol/L (3.5-5.5)
--- NOTE | 2022-11-09 21:31 | P.DS ---
Providers Date of admission: 11/07/22 15:10 Attending physician: Jorden Taylor MD Consults: 11/07/22 15:10 Consult Physician Routine Consulting Provider: Juliane Llanes Consult Reason/Comments: bacteremia Do you want consulting provider notified?: Yes Primary care physician: Julissa Montano Hospital Course: Diagnoses: suspected Bacteremia related to her right arm chronic PICC line , however repeat blood culture is negative. 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 She has a visiting nurse who checked blood culture from the PICC line and came back positive so she came to the hospital. Patient was evaluated by ID team, repeat blood culture were obtained including from the line, repeat blood culture came back negative. Patient remains asymptomatic, afebrile. She is denying chest pain or dyspnea or coughing. No fever. No new GI or urinary symptoms like no vomiting diarrhea or abdominal pain, no urgency or dysuria, no headache or dizziness or weakness or numbness. Antibiotics were stopped I discussed the case with ID team today who recommended to discharge the patient on no antibiotics. Patient was cleared for discharge by ID team Problems and management plan were discussed with the patient and he verbalized understanding and acceptance Patient was found stable and can be discharged home in guarded prognosis however he needs follow-up as an outpatient. Patient was instructed to follow up with PCP Dr. Montano within one week and patient agrees Physical exam Gen: patient is a AAOx3, no distress CVS: S1-S2, RRR, no murmur Lungs: B/L CTA, no wheezing Abdomen: soft, no distention, no tenderness, positive bowel sounds Extremity: no leg edema or induration -Patient is wheelchair bound at baseline Time spent more than 35 minutes Patient Condition at Discharge: Fair Plan - Discharge Summary New Discharge Prescriptions: Continue Levothyroxine Sodium [Synthroid] 100 mcg PO DAILY Methenamine Hippurate 1 gm PO BID Mirabegron [Myrbetriq] 25 mg PO DAILY Fenofibrate [Lofibra] 160 mg PO HS tab Gabapentin [Neurontin] 400 mg PO TID cap Trimethoprim [Trimpex] 100 mg PO HS tab Rivaroxaban [Xarelto] 20 mg PO HS tab Promethazine [Phenergan] 25 mg PO Q6H PRN PRN Reason: Nausea Levothyroxine Sodium [Synthroid] 125 mcg PO MOTUWETH Albuterol Inhaler [Ventolin Hfa Inhaler] 2 puff INHALATION RT-Q2H PRN PRN Reason: Shortness Of Breath Dexlansoprazole [Dexilant] 60 mg PO DAILY Galcanezumab-Gnlm [Emgality Pen] 120 mg SQ Q30D Rizatriptan Benzoate [Rizatriptan] 5 mg PO BID PRN PRN Reason: Migraine Headache Sodium Chloride 0.9% Iv 1 dose IV DIRECTED Baclofen [Lioresal] 20 mg PO QID polyethylene glycoL 3350 [Miralax] 17 gm PO DAILY [place] Carbonate [[place] Carbonate ER] 300 mg PO TID Levocetirizine Dihydrochloride [Xyzal] 5 mg PO DAILY Prochlorperazine [Compro] 25 mg RECTAL Q8H PRN PRN Reason: Nausea Sucralfate [Carafate] 1 gm PO TID-W/MEALS PRN PRN Reason: Gi Upset modafiniL [Provigil] 200 - 400 mg PO DAILY PRN PRN Reason: sleepiness Lidocaine 4% [place] 1 spray TOPICAL Q8H PRN PRN Reason: Pain Rimegepant Sulfate [Nurtec Odt] 75 mg PO DAILY PRN PRN Reason: Migraine Headache HYDROcodone/APAP 7.5-325MG [[place] 7.5-325] 1 - 2 tab PO Q8HR PRN PRN Reason: Pain Pioglitazone [Actos] 45 mg PO DAILY diazePAM [Valium] 2.5 - 5 mg PO DAILY PRN PRN Reason: Anxiety Famotidine 40 mg PO HS Glycopyrrolate [Robinul] 1 mg PO BID Metoprolol Succinate (ER) [Toprol XL] 100 mg PO DAILY Phenazopyridine HCl [Uristat Ultra] 99.5 mg PO DAILY PRN PRN Reason: urinary pain Ezetimibe [Zetia] 10 mg PO HS Cyanocobalamin (Vitamin B-12) [Vitamin B-12] 1,000 mcg PO DAILY busPIRone HCL [Buspar] 30 mg PO BID Fluticasone/Vilanterol [Breo Ellipta 100-25 Mcg Inhaler] 1 puff INHALATION RT-DAILY Ondansetron Odt [Zofran ODT] 8 mg PO TID PRN PRN Reason: Nausea Metoclopramide [Reglan] 10 mg PO ACHS PRN PRN Reason: Nausea Fluticasone Nasal [place] [Flonase Nasal [place]] 2 spray EA NOSTRIL DAILY traZODone HCL 200 mg PO HS Butalbit/Acetamin/Caff/Codeine [Butal/APAP/Caff/Cod 38-810-65-30MG] 1 cap PO Q8H PRN PRN Reason: Migraine Headache tiZANidine HCL 2 mg PO DAILY PRN PRN Reason: Muscle Pain Dicyclomine HCl 20 mg PO Q6H PRN PRN Reason: Gi Upset Ketoconazole 2% Shampoo [Nizoral] 1 applic TOPICAL DAILY PRN PRN Reason: SCALP Ondansetron 4mg/2ml Injection 8 mg IVP Q8H PRN PRN Reason: Nausea Dexmethylphenidate HCl [Dexmethylphenidate HCl ER] 10 mg PO DAILY sitaGLIPtin [Januvia] 100 mg PO DAILY glipiZIDE 10 mg PO DAILY Semaglutide [Ozempic] 2 mg SQ TAYLOR Brexpiprazole [Rexulti] 1 mg PO HS Discontinued Meloxicam [Mobic] 15 mg PO DAILY cloNIDine HCL [Catapres] 0.1 mg PO HS No Action cloNIDine HCL [Kapvay] 0.2 mg PO DAILY cloNIDine HCL [Kapvay] 0.1 mg PO HS Discharge Medication List Levothyroxine Sodium [Synthroid] 100 mcg PO DAILY 01/16/19 [History] Methenamine Hippurate 1 gm PO BID 07/12/19 [History] Mirabegron [Myrbetriq] 25 mg PO DAILY 10/08/19 [History] Fenofibrate [Lofibra] 160 mg PO HS tab 10/17/19 [Rx] Gabapentin [Neurontin] 400 mg PO TID cap 10/17/19 [Rx] Rivaroxaban [Xarelto] 20 mg PO HS tab 10/17/19 [Rx] Trimethoprim [Trimpex] 100 mg PO HS tab 10/17/19 [Rx] Promethazine [Phenergan] 25 mg PO Q6H PRN 11/30/19 [History] Levothyroxine Sodium [Synthroid] 125 mcg PO MOTUWETH 12/28/19 [History] Albuterol Inhaler [Ventolin Hfa Inhaler] 2 puff INHALATION RT-Q2H PRN 09/19/20 [History] Dexlansoprazole [Dexilant] 60 mg PO DAILY 09/19/20 [History] Galcanezumab-Gnlm [Emgality Pen] 120 mg SQ Q30D 09/19/20 [History] Rizatriptan Benzoate [Rizatriptan] 5 mg PO BID PRN 09/19/20 [History] Sodium Chloride 0.9% Iv 1 dose IV DIRECTED 09/19/20 [History] Cyanocobalamin (Vitamin B-12) [Vitamin B-12] 1,000 mcg PO DAILY 06/01/21 [History] Ezetimibe [Zetia] 10 mg PO HS 06/01/21 [History] busPIRone HCL [Buspar] 30 mg PO BID 06/01/21 [History] Baclofen [Lioresal] 20 mg PO QID 06/02/21 [History] Fluticasone/Vilanterol [Breo Ellipta 100-25 Mcg Inhaler] 1 puff INHALATION RT- DAILY 09/27/21 [History] Ondansetron Odt [Zofran ODT] 8 mg PO TID PRN 09/27/21 [History] polyethylene glycoL 3350 [Miralax] 17 gm PO DAILY 09/27/21 [History] Fluticasone Nasal [place] [Flonase Nasal [place]] 2 spray EA NOSTRIL DAILY 04/26/22 [History] Levocetirizine Dihydrochloride [Xyzal] 5 mg PO DAILY 04/26/22 [History] [place] Carbonate [[place] Carbonate ER] 300 mg PO TID 04/26/22 [History] Metoclopramide [Reglan] 10 mg PO ACHS PRN 04/26/22 [History] traZODone HCL 200 mg PO HS 04/26/22 [History] Butalbit/Acetamin/Caff/Codeine [Butal/APAP/Caff/Cod 97-269-47-30MG] 1 cap PO Q8H PRN 06/23/22 [History] Dicyclomine HCl 20 mg PO Q6H PRN 06/23/22 [History] Ketoconazole 2% Shampoo [Nizoral] 1 applic TOPICAL DAILY PRN 06/23/22 [History] Lidocaine 4% [place] 1 spray TOPICAL Q8H PRN 06/23/22 [History] Ondansetron 4mg/2ml Injection 8 mg IVP Q8H PRN 06/23/22 [History] Prochlorperazine [Compro] 25 mg RECTAL Q8H PRN 06/23/22 [History] Rimegepant Sulfate [Nurtec Odt] 75 mg PO DAILY PRN 06/23/22 [History] Sucralfate [Carafate] 1 gm PO TID-W/MEALS PRN 06/23/22 [History] cloNIDine HCL [Kapvay] 0.2 mg PO DAILY 06/23/22 [History] modafiniL [Provigil] 200 - 400 mg PO DAILY PRN 06/23/22 [History] tiZANidine HCL 2 mg PO DAILY PRN 06/23/22 [History] Dexmethylphenidate HCl [Dexmethylphenidate HCl ER] 10 mg PO DAILY 10/07/22 [History] HYDROcodone/APAP 7.5-325MG [[place] 7.5-325] 1 - 2 tab PO Q8HR PRN 10/07/22 [History] Pioglitazone [Actos] 45 mg PO DAILY 10/07/22 [History] Semaglutide [Ozempic] 2 mg SQ TAYLOR 10/07/22 [History] cloNIDine HCL [Kapvay] 0.1 mg PO HS 10/07/22 [History] glipiZIDE 10 mg PO DAILY 10/07/22 [History] sitaGLIPtin [Januvia] 100 mg PO DAILY 10/07/22 [History] Brexpiprazole [Rexulti] 1 mg PO HS 11/07/22 [History] Famotidine 40 mg PO HS 11/07/22 [History] Glycopyrrolate [Robinul] 1 mg PO BID 11/07/22 [History] Metoprolol Succinate (ER) [Toprol XL] 100 mg PO DAILY 11/07/22 [History] Phenazopyridine HCl [Uristat Ultra] 99.5 mg PO DAILY PRN 11/07/22 [History] diazePAM [Valium] 2.5 - 5 mg PO DAILY PRN 11/07/22 [History] Follow up Appointment(s)/Referral(s): Julissa Montano III, MD [Primary Care Provider] - 1-2 days (office busy at time of discharge. Please call to schedule appointment ) [facility], [[facility]STAFF] - As Needed ([facility] will call you to schedule your in home visits. Your IV antibiotic teaching will begin on: ) Care,[facility] [NON-STAFF] - As Needed [facility], [REFERRING] - As Needed ([facility] will deliver you outpatient IV antibiotic supplies on: . Your home IV 0.9% Normal Saline 2L daily will continue as prior to admission. ) Patient Instructions/Handouts: Bacteremia (DC) Activity/Diet/Wound Care/Special Instructions: Resume your previous diet Activity is as tolerated Discharge Disposition: HOME SELF-CARE
[2022-11-10] MEDS ORDERED: VANCOMYCIN TROUGH DUE 1 EACH MISC MISCELLANE ONE (05:00)
== END 2022-11-09 13:33 | disposition home or self-care (01) | DRG 315 ==
LOC: EC 12:57 → 4SSUR 15:10
PROVIDERS: ADMIT Internal Medicine; ATTEND Internal Medicine
DX: T80.211A Bloodstream infection due to central venous catheter, initial encounter (principal); D68.62 Lupus anticoagulant syndrome; E88.40 Mitochondrial metabolism disorder, unspecified; G95.89 Other specified diseases of spinal cord; Q21.12 Patent foramen ovale; Z68.41 Body mass index [BMI] 40.0-44.9, adult; R78.81 Bacteremia; E06.3 Autoimmune thyroiditis; B95.7 Other staphylococcus as the cause of diseases classified elsewhere; E11.41 Type 2 diabetes mellitus with diabetic mononeuropathy; G90.1 Familial dysautonomia [Riley-Day]; I10 Essential (primary) hypertension; Z20.822 Contact with and (suspected) exposure to COVID-19; E66.9 Obesity, unspecified; E78.5 Hyperlipidemia, unspecified; F31.9 Bipolar disorder, unspecified; N31.9 Neuromuscular dysfunction of bladder, unspecified; F43.10 Post-traumatic stress disorder, unspecified; G71.00 Muscular dystrophy, unspecified; Z87.440 Personal history of urinary (tract) infections; G43.909 Migraine, unspecified, not intractable, without status migrainosus; E11.42 Type 2 diabetes mellitus with diabetic polyneuropathy; D64.9 Anemia, unspecified; J45.909 Unspecified asthma, uncomplicated; Z79.01 Long term (current) use of anticoagulants; Z79.1 Long term (current) use of non-steroidal anti-inflammatories (NSAID); Z79.84 Long term (current) use of oral hypoglycemic drugs; Z79.890 Hormone replacement therapy; Z79.899 Other long term (current) drug therapy; Z82.49 Family history of ischemic heart disease and other diseases of the circulatory system; Z86.718 Personal history of other venous thrombosis and embolism; Z86.73 Personal history of transient ischemic attack (TIA), and cerebral infarction without residual deficits; Z88.2 Allergy status to sulfonamides; Z88.8 Allergy status to other drugs, medicaments and biological substances; Z88.1 Allergy status to other antibiotic agents
CPT/HCPCS: 36415; 80048; 83605; 83735; 84145; 85025; 87040; 87636; 94640; 96365; 99285

== ENCOUNTER → 2022-12-02 | Outpatient (CLI) | payer MEDICARE, OTHER ==
--- NOTE | 2022-12-02 14:33 | P.PN ---
Subjective DATE: History of pituitary microadenoma FOLLOW UP VISIT. Patient with obstructive sleep apnea hypopnea syndrome return to sleep center for follow-up visit. Recently patient had sleep study which documented obstructive sleep apnea hypopnea syndrome. Patient was initiated on PAP therapy and today is first visit after treatment was started. I discussed with patient results of sleep studies in details. Patient was able to use PAP equipment every night for the whole night. The patient does not have significant problems with the mask, PAP pressure and humidification. [place] sleepiness scale is slightly increased to 12, which indicate improvements comparing to the previous visit we for CPAP treatment when it was 18. I checked information from PAP unit. PAP unit pressure 5-15, average 9.7 cm H2O. Usage is 19 % for more then 4 hours, average 8 hours per night. Leak is 7.6 l/m, which is in acceptable range. Apnea Hypopnea Index is 0.4, which is normal. MEDICATIONS: Please see my consult During physical exam: GENERAL: A pleasant patient without any distress on wheelchair. VITAL SIGNS: BP 118/85, HR 86, RR 16 , weight 252.8, temperature 98.9, oxygen saturation at room air 99 . HEENT: PERRLA, EOMI.low position of soft palate, Mallapati 4 . NECK: Supple. No JVD. LUNGS: Clear to percussion and to auscultation. Good air exchange. No wheezing or rhonchi. HEART: S1, S2 regular. ABDOMEN: Soft and nontender. Obese EXTREMITIES: No clubbing or cyanosis. RECRUITING COORDINATOR: Awake, alert, and oriented x3. No focal deficit. Impressions: 1. Obstructive sleep apnea-hypopnea syndrome. Patient demonstrated great compliance with treatment, benefiting from treatment. 2. Narcolepsy type I confirmed by multiple sleep latency test with 3 sleep onset REM periods. 3. Lupus erythematosus. 4. Obesity, patient lost 25 pounds comparing to the previous visit. 5. Meter: Revealed disease with chronic pain and muscle weakness. 6. Diabetes mellitus. 7. History of DVT and stroke. 8. History of Emily thyroiditis, hypothyroidism. 9. History of polycystic ovary syndrome. 10. History of migraines 11. History of idiopathic intracranial hypertension 12. History of pernicious anemia 13. History of GERD 14. History of bipolar disorder and anxiety and PTSD. 15. History of asthma. 16. Diabetes mellitus. Plan: 1. Continue using PAP equipment every night for the whole night. 2. To change air filter at least 1-2 times per month. 3. PAP unit should stay lower then position of the head. 4. Advised patient to remove all remaining water from humidifier canister daily and make it dry after each usage. Refill canister with fresh distilled water before each usage. 5. Sleep hygiene with regular time in bed for at least 8 hours. 6. Precautions related to driving. No driving if feel any sleepiness. 7. I will maintain prescription for PAP supplies including mask, tube, filters. 8. Continue treatment to prevent excessive daytime sleepiness related to narcolepsy with Provigil 200 mg in the morning and Focalin. 9. Watching weight. 10.Follow up visit in 6 months or earlier if patient has any problems. Thank you very much for allowing me to participate in the management of your patient. Mateo Schilling MD, PhD, FAASM. Diplomat of [place] [employer], Sleep Medicine Board by [place] [employer] [facility] [place]
== END ==
LOC: SLEEP 13:48
PROVIDERS: ATTEND Internal Medicine
DX: G47.33 Obstructive sleep apnea (adult) (pediatric) (principal); G47.419 Narcolepsy without cataplexy; L93.0 Discoid lupus erythematosus; E66.9 Obesity, unspecified; E11.9 Type 2 diabetes mellitus without complications; Z86.718 Personal history of other venous thrombosis and embolism; Z86.73 Personal history of transient ischemic attack (TIA), and cerebral infarction without residual deficits; J45.909 Unspecified asthma, uncomplicated; K21.9 Gastro-esophageal reflux disease without esophagitis; G89.29 Other chronic pain; F31.9 Bipolar disorder, unspecified; E28.2 Polycystic ovarian syndrome; E06.3 Autoimmune thyroiditis; Z91.010 Allergy to peanuts; Z88.1 Allergy status to other antibiotic agents; Z88.2 Allergy status to sulfonamides; Z88.8 Allergy status to other drugs, medicaments and biological substances; Z99.89 Dependence on other enabling machines and devices
CPT/HCPCS: 99212

== ENCOUNTER 2022-12-14 22:51 | Emergency (ER) | payer MEDICARE, OTHER ==
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
[2022-12-15 02:05] LABS: Amphetamine Screen,Urine Not Detected (NotDetected); Barbiturate Screen,Urine Not Detected (NotDetected); Benzodiazepines Screen,Urine Detected (NotDetected); Cocaine Screen,Urine Not Detected (NotDetected); Methadone Screen, Urine Not Detected (NotDetected); Opiate Screen,Urine Detected (NotDetected); Oxycodone Screen, Urine Not Detected (NotDetected); Phencyclidine Screen,Urine Not Detected (NotDetected); Tricyclic Antidepressant,Urine Not Detected (NotDetected); Urn Cannabinoid Scrn Not Detected (NotDetected)
[2022-12-15 05:17] LABS: Basophils # (A) 0.1 k/uL (0-0.2); Basophils % (A) 1 %; Eosinophils # (A) 0.4 k/uL (0-0.7); Eosinophils % (A) 4 %; HCT 32.9 % (34.0-46.0); Lymphocytes # (A) 1.4 k/uL (1.0-4.8); Lymphocytes % (A) 14 %; MCH 29.9 pg (25.0-35.0); MCHC 33.5 g/dL (31.0-37.0); MCV 89.3 fL (80.0-100.0); Mean Platelet Volume 7.8; Monocytes # (A) 0.5 k/uL (0-1.0); Monocytes % (A) 6 %; Neutrophils # (A) 7.2 k/uL (1.3-7.7); Neutrophils % (A) 75 %; Platelet Count 340 k/uL (150-450); RBC 3.68 m/uL (3.80-5.40); WBC 9.7 k/uL (3.8-10.6)
[2022-12-15 05:27] LABS: ALT 17 U/L (4-34); AST 16 U/L (14-36); African American GFR (CKD) >90 (>60 ml/min/1.73 sqM); Alkaline Phosphatase 43 U/L (38-126); Anion Gap 8 mmol/L; Blood Urea Nitrogen 16 mg/dL (7-17); Calcium 9.1 mg/dL (8.4-10.2); Carbon Dioxide 22 mmol/L (22-30); Chloride 107 mmol/L (98-107); Glucose 129 mg/dL (74-99); Non-African American GFR(CKD) 82 (>60 ml/min/1.73 sqM); Potassium 4.4 mmol/L (3.5-5.1); Sodium 137 mmol/L (137-145); Total Bilirubin 0.3 mg/dL (0.2-1.3); Total Protein 6.5 g/dL (6.3-8.2)
[2022-12-15 06:27] LABS: Appearance,Urine Cloudy (Clear); Bacteria,Urine Rare /hpf; Bilirubin,Urine Negative (Negative); Blood,Urine Negative (Negative); Calcium Oxalate Crystals,Urine Occasional /hpf; Color,Urine Yellow; Glucose,Urine (UA) Negative (Negative); Hyaline Casts,Urine 4 /lpf (0-2); Ketones,Urine Trace (Negative); Leukocyte Esterase,Urine Small (Negative); Mucus,Urine Rare /hpf; Nitrite,Urine Negative (Negative); PH, Urine 5.5 (5.0-8.0); Protein,Urine Trace (Negative); RBC,Urine 2 /hpf (0-5); Squamous Epithelial Cell,Urine 11 /hpf (0-4); Urobilinogen,Urine <2.0 mg/dL (<2.0); WBC,Urine 5 /hpf (0-5)
[2022-12-15] MEDS ORDERED: PHENAZOPYRIDINE HCL 99.5 MG PO PRN (17:41)
[2022-12-15] MEDS ORDERED: tiZANidine 4 MG TAB PO PRN (17:41)
[2022-12-15] MEDS ORDERED: RIZATRIPTAN BENZOATE 5 MG PO PRN (17:41)
[2022-12-15] MEDS ORDERED: HYDROcodone/APAP 7.5-325MG 1 EACH TAB PO PRN (17:41)
[2022-12-15] MEDS ORDERED: NON FORMULARY DRUG (Brexpiprazole [Rexulti] 1 MG Tablet) PO SCH (21:00)
[2022-12-15] MEDS ORDERED: cloNIDine HCL 0.1 MG TAB PO SCH (21:00)
[2022-12-15] MEDS ORDERED: RIVAROXABAN 20 MG TAB PO SCH (21:00)
[2022-12-15] MEDS ORDERED: EZETIMIBE 10 MG TAB PO SCH (21:00)
[2022-12-15] MEDS ORDERED: traZODone HCL 100 MG TAB PO SCH (21:00)
[2022-12-15] MEDS: BACLOFEN 10 MG TAB PO SCH ×2 (21:16→22:15)
[2022-12-15] MEDS: cloNIDine HCL 0.1 MG TAB PO SCH (21:16)
[2022-12-15] MEDS: busPIRone HCl 10 MG TAB PO SCH (21:16)
[2022-12-15] MEDS: GLYCOPYRROLATE 1 MG TAB PO SCH (21:17)
[2022-12-15] MEDS: NON FORMULARY DRUG (Methenamine Hippurate [Methenamine Hippurate] 1 GM Tablet) PO SCH (21:17)
[2022-12-15] MEDS: GABAPENTIN 400 MG CAP PO SCH (21:17)
[2022-12-15] MEDS ORDERED: NON FORMULARY DRUG (Lithium Carbonate [Lithium Carbonate Er] 300 MG Tablet) PO SCH (22:00)
[2022-12-16] MEDS ORDERED: LEVOTHYROXINE 125 MCG TAB PO SCH (06:30)
[2022-12-16] MEDS ORDERED: LEVOTHYROXINE 100 MCG TAB PO SCH (06:30)
[2022-12-16] MEDS ORDERED: PANTOPRAZOLE 40 MG TABLET PO SCH (07:30)
[2022-12-16] MEDS: busPIRone HCl 10 MG TAB PO SCH (08:21)
[2022-12-16] MEDS: cloNIDine HCL 0.1 MG TAB PO SCH (08:21)
[2022-12-16] MEDS: BACLOFEN 10 MG TAB PO SCH ×2 (08:21→14:21)
[2022-12-16] MEDS: GABAPENTIN 400 MG CAP PO SCH (08:21)
[2022-12-16] MEDS: LINAGLIPTIN 5 MG TABLET PO SCH ×2 (08:22→08:32)
[2022-12-16] MEDS: GLYCOPYRROLATE 1 MG TAB PO SCH (08:33)
[2022-12-16] MEDS: NON FORMULARY DRUG (Methenamine Hippurate [Methenamine Hippurate] 1 GM Tablet) PO SCH (08:35)
[2022-12-16] MEDS ORDERED: LORATADINE 10 MG TAB PO SCH (09:00)
[2022-12-16] MEDS ORDERED: NON FORMULARY DRUG (Mirabegron [Myrbetriq] 25 MG Tab.Er.24h) PO SCH (09:00)
[2022-12-16] MEDS ORDERED: glipiZIDE 10 MG TAB PO SCH (09:00)
[2022-12-16] MEDS ORDERED: cloNIDine HCL 0.2 MG TAB PO SCH (09:00)
[2022-12-16] MEDS ORDERED: PIOGLITAZONE 45 MG TAB PO SCH (09:00)
[2022-12-16] MEDS ORDERED: MELOXICAM 7.5 MG TAB PO SCH (09:00)
[2022-12-16] MEDS ORDERED: METOPROLOL SUCCINATE (ER) 100 MG TAB.ER.24H PO SCH (09:00)
[2022-12-16] MEDS ORDERED: MYRBETRIQ 25 MG PO SCH (09:00)
[2022-12-16] MEDS ORDERED: ONDANSETRON ODT 4 MG TAB PO STA (11:28)
[2022-12-16 16:03] VITALS: BP 130/81; PULSE 84; RESP 18; TEMP 98
[2022-12-16] MEDS ORDERED: REXULTI 1 MG PO SCH (21:00)
[2022-12-19] MEDS ORDERED: NON FORMULARY DRUG (Semaglutide [Ozempic] 2 MG/0.75 ML Pen.Injctr) SQ SCH (09:00)
[2022-12-22] MEDS ORDERED: NON FORMULARY DRUG (Galcanezumab-Gnlm [Emgality Pen] 120 MG/ML Pen.Injctr) SQ SCH (09:00)
== END 2022-12-16 16:32 | disposition home or self-care (01) ==
LOC: EC 22:51
DX: R45.851 Suicidal ideations (principal); E11.9 Type 2 diabetes mellitus without complications; E78.5 Hyperlipidemia, unspecified; F31.9 Bipolar disorder, unspecified; F41.9 Anxiety disorder, unspecified; G47.30 Sleep apnea, unspecified; I10 Essential (primary) hypertension; J45.909 Unspecified asthma, uncomplicated; K21.9 Gastro-esophageal reflux disease without esophagitis; E07.9 Disorder of thyroid, unspecified; Z79.1 Long term (current) use of non-steroidal anti-inflammatories (NSAID); Z79.84 Long term (current) use of oral hypoglycemic drugs; Z79.890 Hormone replacement therapy; Z79.899 Other long term (current) drug therapy; Z88.1 Allergy status to other antibiotic agents; Z88.2 Allergy status to sulfonamides; Z88.8 Allergy status to other drugs, medicaments and biological substances; Z91.018 Allergy to other foods; Z20.822 Contact with and (suspected) exposure to COVID-19
CPT/HCPCS: 36415; 80053; 80306; 81001; 81025; 82075; 85025; 87635; 99285

== ENCOUNTER → 2023-02-02 | Outpatient (CLI) | payer MEDICARE, OTHER ==
--- NOTE | 2023-02-02 13:00 | US ---
EXAMINATION TYPE: US abdomen complete DATE OF EXAM: 02/02/2023 COMPARISON: 05/28/2021 CLINICAL HISTORY: 42-year-old female R16.2 HEPATOMEGALY, R10.11 RUQ PAIN. TECHNIQUE: Multiple sonographic images of the abdomen are obtained. FINDINGS: EXAM MEASUREMENTS: Liver Length: 21.3 cm Gallbladder: -- CBD: 0.21 cm Spleen: 11.6 cm Right Kidney: 11.2 x 4.6 x 5.9 cm Left Kidney: 11.4 x 5.7 x 6.3 cm Pancreas: The visualized pancreatic body shows no gross abnormality. The head and tail aren't secure d by bowel gas shadowing. Liver: Enlarged. Mild increased echogenicity. No focal lesion seen. Gallbladder: Surgically absent Evidence for sonographic Harris's sign: No CBD: wnl Spleen: wnl Right Kidney: wnl Left Kidney: Multiple hypoechoic, probable cysts at the inferior pole. Low level echoes could be art ifactual or could represent debris. 1: Lateral inferior pole 1.4 x 1.4 x 1.6cm 2: Medial inferior pole 1.5 x 1.4 x 1.5cm 3: Medial inferior pole 0.9 x 1.0 x 0.9cm Upper IVC: wnl Abd Aorta: Distal is obscured by overlying bowel gas, otherwise unremarkable. IMPRESSION: 1. Hepatomegaly at 21.3 cm. At least mild fatty infiltration of the liver. 2. No biliary ductal dilatation. Status post cholecystectomy. 3. A few cortical cysts at the lower pole left kidney measuring up to 1.6 cm.
== END | disposition home or self-care (01) ==
LOC: RADUSWWP 11:52
PROVIDERS: ATTEND Family Medicine
DX: K76.0 Fatty (change of) liver, not elsewhere classified (principal); R16.2 Hepatomegaly with splenomegaly, not elsewhere classified; N28.1 Cyst of kidney, acquired; R10.11 Right upper quadrant pain; Z90.49 Acquired absence of other specified parts of digestive tract
CPT/HCPCS: 76700

== ENCOUNTER 2023-02-21 09:50 | Day surgery (SDC) | payer MEDICARE, OTHER ==
[2023-02-18 09:35] VITALS: BMI 41.2
[2023-02-21 10:15] VITALS: BP 120/73; PULSE 67; RESP 16; TEMP 99.2
[2023-02-21 10:25] LABS: Glucose,Whole Blood 106 mg/dL (70-110)
[2023-02-21] MEDS ORDERED: IOPAMIDOL-370 100ML BTL INJ ONE ×2 (10:58)
== END 2023-02-21 11:23 | disposition home or self-care (01) ==
LOC: CATHCVL 09:50
PROVIDERS: ATTEND Radiology Diagnostic Radiology
DX: T82.598A Other mechanical complication of other cardiac and vascular devices and implants, initial encounter (principal)
CPT/HCPCS: 36598; 81025; Q9967

== ENCOUNTER 2023-02-24 09:35 | Day surgery (SDC) | payer MEDICARE, OTHER ==
[2023-02-23 10:41] VITALS: BMI 41.5
[2023-02-24 10:12] VITALS: BP 118/75; PULSE 91; RESP 16; TEMP 99.2
[2023-02-24 10:33] LABS: African American GFR (CKD) >90 (>60 ml/min/1.73 sqM); Blood Urea Nitrogen 13 mg/dL (7-17); Non-African American GFR(CKD) >90 (>60 ml/min/1.73 sqM)
[2023-02-24] MEDS ORDERED: LIDOCAINE 1% INJ 10MG/ML (5 ML VIAL-PF) SQ ONE (11:10)
--- NOTE | 2023-02-24 12:13 | IR ---
PICC LINE PLACEMENT: HISTORY: Infection requiring long-term antibiotic therapy PROCEDURE: Ultrasound and fluoroscopic guidance of PICC line placement. COMPLICATIONS: None ANESTHESIA: 1. 1% Lidocaine locally. FINDINGS/TECHNIQUE: The procedure was explained to the patient. The risks, complications, benefits and alternatives were discussed and any questions were answered. Informed consent was obtained. The patient was placed supine on the fluoroscopic table and prepped and draped in the usual sterile fash ion. Utilizing a 21 gauge needle and sonographic and fluoroscopic guidance, access in the right bas ilic vein was achieved and there is placement of a 0.018 guidewire. The vein is patent. A 4-F sheat h was placed over the guidewire. The guidewire and dilator were removed and a 4-F. PICC line was craig ebony through the sheath with the tip at the level of the SVC. The sheath was removed, the catheter wa s flushed and sutured into position. The patient was stable throughout the procedure and remained st able upon discharge from the Department of Radiology. The vein puncture was patent under ultrasound. A esteves scale image was obtained to document patency of the vein punctured. All elements of the maximal barrier technique were utilized. FLUOROSCOPY TIME: DAP 0.9754Gy cm2 IMPRESSION: Successful PICC line placement under ultrasound and fluoroscopic guidance.
== END 2023-02-24 12:17 | disposition home or self-care (01) ==
LOC: CATHCVL 09:35
PROVIDERS: ATTEND Radiology Diagnostic Radiology
DX: Z45.2 Encounter for adjustment and management of vascular access device (principal); E88.40 Mitochondrial metabolism disorder, unspecified; G43.909 Migraine, unspecified, not intractable, without status migrainosus; D68.62 Lupus anticoagulant syndrome; G89.4 Chronic pain syndrome; N32.89 Other specified disorders of bladder; K31.84 Gastroparesis; N39.42 Incontinence without sensory awareness; Z86.16 Personal history of COVID-19; Z79.899 Other long term (current) drug therapy; Z79.1 Long term (current) use of non-steroidal anti-inflammatories (NSAID); Z91.010 Allergy to peanuts; Z88.1 Allergy status to other antibiotic agents; Z88.2 Allergy status to sulfonamides; Z88.8 Allergy status to other drugs, medicaments and biological substances
CPT/HCPCS: 36573; 82565; 84520; 81025; C1751; C1769; J2001

== ENCOUNTER 2023-03-17 09:49 | Day surgery (SDC) | payer MEDICARE, OTHER ==
[2023-03-15 11:57] VITALS: BMI 41.4
[~2023-03-17 09:49] MED LIST changes: +Pre Op ABX Message 1 EACH MISC MISCELLANE ONE
[2023-03-17 11:38] LABS: Glucose,Whole Blood 124 mg/dL (70-110)
[2023-03-17] MEDS ORDERED: ONDANSETRON 4 MG/2 ML VIAL ONE (11:45)
[2023-03-17] MEDS ORDERED: ONDANSETRON 4 MG/2 ML VIAL IVP ONE (11:47)
[2023-03-17 11:52] LABS: Basophils % (A) 0 %; Eosinophils # (A) 0.2 k/uL (0-0.7); Eosinophils % (A) 2 %; HCT 34.6 % (34.0-46.0); HGB 11.2 gm/dL (11.4-16.0); Lymphocytes # (A) 1.3 k/uL (1.0-4.8); Lymphocytes % (A) 15 %; MCH 29.1 pg (25.0-35.0); MCHC 32.4 g/dL (31.0-37.0); MCV 89.8 fL (80.0-100.0); Mean Platelet Volume 7.5; Monocytes # (A) 0.5 k/uL (0-1.0); Monocytes % (A) 6 %; Neutrophils # (A) 6.2 k/uL (1.3-7.7); Neutrophils % (A) 74 %; Platelet Count 326 k/uL (150-450); RBC 3.86 m/uL (3.80-5.40); RDW 13.7 % (11.5-15.5); WBC 8.3 k/uL (3.8-10.6)
[2023-03-17 12:10] LABS: ALT 24 U/L (4-34); AST 23 U/L (14-36); African American GFR (CKD) >90 (>60 ml/min/1.73 sqM); Albumin 4.3 g/dL (3.5-5.0); Alkaline Phosphatase 47 U/L (38-126); Anion Gap 10 mmol/L; Blood Urea Nitrogen 15 mg/dL (7-17); Calcium 9.6 mg/dL (8.4-10.2); Carbon Dioxide 23 mmol/L (22-30); Chloride 107 mmol/L (98-107); Glucose 120 mg/dL (74-99); Non-African American GFR(CKD) >90 (>60 ml/min/1.73 sqM); Sodium 140 mmol/L (137-145); Total Bilirubin 0.3 mg/dL (0.2-1.3); Total Protein 6.8 g/dL (6.3-8.2)
[2023-03-17 12:23] LABS: Potassium 4.3 mmol/L (3.5-5.1)
[2023-03-17] MEDS ORDERED: fentaNYL (PF) 50 MCG/1 ML VIAL IV ONE (12:54)
[2023-03-17] MEDS ORDERED: PROPOFOL 10 MG/ML 20 ML VIAL IV ONE (14:35)
[2023-03-17] MEDS ORDERED: MIDAZOLAM 2 MG/2 ML VIAL ONE (14:35)
[2023-03-17] MEDS ORDERED: KETAMINE 10 MG/ML 20 ML VIAL ONE (14:35)
[2023-03-17] MEDS ORDERED: fentaNYL (PF) 50 MCG/ML 2 ML AMP ONE (14:35)
[2023-03-17] MEDS ORDERED: SODIUM CHLORIDE 0.9% 100 ML with ceFAZolin 2,000 MG IV ONE ×2 (15:03)
[2023-03-17] MEDS ORDERED: HEPARIN SODIUM,PORCINE 10,000 UNIT in SODIUM CHLORIDE 0.9% 1,000 ML IRRIGATION ONE (15:05)
[2023-03-17] MEDS ORDERED: LIDOCAINE 1% INJ 10MG/ML (30 ML VIAL-PF) SQ ONE ×2 (15:10)
[2023-03-17] MEDS ORDERED: ceFAZolin 1,000 MG in SODIUM CHLORIDE 0.9% 1,000 ML IRRIGATION ONE (15:14)
[2023-03-17 15:54] VITALS: TEMP 97
--- NOTE | 2023-03-17 15:57 | P.OP ---
Date of Procedure: 03/17/23 Description of Procedure: Preoperative diagnosis: Malfunctioning port, leaking, ill position, mitochondrial dysfunction, need for infusions Postoperative diagnosis: Same Procedure: Replacement of left chest wall central vein catheter with replacement of subcutaneous port and fluoroscopic assistance Surgeon: Erna Kumar D.O. EBL: 5 mL IV fluids: See records Urine output: Not measured Drains: None Complications: None immediately apparent Condition: Stable to recovery Operative indication and findings: Patient is a 42-year-old female who previously had injected ports on the right with removal and the subsequent PICC line in place, at her last hospitalization earlier this year the PICC line was n ot functional and she had a subclavian port placed by another physician. It was not functioning short off the beginning and she was having issues with that. She did have a portogram recently was found to have a leak as well as significant redundancy to the subcutaneous catheter. She is here today for replacement or possible new access site. Procedure in detail: [Patient was taken to the operative suite and placed in supine position. The neck and chest were prepped in usual sterile fashion. A preprocedure timeout was performed, all parties were in agreement. Over the previous incision, the skin was anesthetized. The incision was carried down through the subcutaneous tissue and the port itself was encountered. Using blunt dissection electrocautery, the port was dissected free. The subcutaneous portions were dissected free from the catheter itself and is found to be severely looped. Fluoroscopy was used to help straighten this out. A guidewire was passed through the catheter itself and into the cavoatrial junction. At that point the catheter was in fully removed. The pocket was investigated and found to be appropriate for new port. The tear-away sheath was placed over the wire. The wire and inner dilators were removed. The catheter was in placed, 27 cm. The catheter was then attached to the subcutaneous port and the port was sutured in place with interrupted sutures of 3-0 Prolene at the upper edges. The port was accessed externally as well as through the skin and it functioned well. It was flushed with heparinized solution. The area was irrigated. Final imaging was stored with good apposition and no evidence of kinking. The subcuticular tissue was then reapproximated with interrupted sutures of 3-0 Vicryl. The skin was reapproximated with running 4-0 Monocryl. Skin glue was placed. The patient was allowed awaken from anesthesia and transferred to recovery in stable condition having tolerated the procedure well.] Plan - Discharge Summary Discharge Rx Participant: No New Discharge Prescriptions: No Action Levothyroxine Sodium [Synthroid] 100 mcg PO DAILY Methenamine Hippurate 1 gm PO BID Mirabegron [Myrbetriq] 25 mg PO DAILY Fenofibrate [Lofibra] 160 mg PO HS tab Gabapentin [Neurontin] 400 mg PO TID cap Rivaroxaban [Xarelto] 20 mg PO HS tab Promethazine [Phenergan] 25 mg PO Q6H PRN PRN Reason: Nausea Levothyroxine Sodium [Synthroid] 125 mcg PO MOTUWETH Albuterol Inhaler [Ventolin Hfa Inhaler] 2 puff INHALATION Q2H PRN PRN Reason: Shortness Of Breath Dexlansoprazole [Dexilant] 60 mg PO DAILY Galcanezumab-Gnlm [Emgality Pen] 120 mg SQ Q30D Rizatriptan Benzoate [Rizatriptan] 5 mg PO BID PRN PRN Reason: Migraine Headache Baclofen [Lioresal] 20 mg PO QID polyethylene glycoL 3350 [Miralax] 17 gm PO DAILY [place] Carbonate [[place] Carbonate ER] 300 mg PO TID Levocetirizine Dihydrochloride [Xyzal] 5 mg PO DAILY cloNIDine HCL [Kapvay] 0.2 mg PO QAM Prochlorperazine [Compro] 25 mg RECTAL Q8H PRN PRN Reason: Nausea Sucralfate [Carafate] 1 gm PO TID-W/MEALS PRN PRN Reason: Gi Upset modafiniL [Provigil] 200 mg PO DAILY Rimegepant Sulfate [Nurtec Odt] 75 mg PO DAILY PRN PRN Reason: Migraine Headache HYDROcodone/APAP 7.5-325MG [[place] 7.5-325] 1 tab PO Q8H PRN PRN Reason: Pain Pioglitazone [Actos] 45 mg PO DAILY Famotidine 40 mg PO HS Glycopyrrolate [Robinul] 2 mg PO TID Metoprolol Succinate (ER) [Toprol XL] 100 mg PO DAILY Phenazopyridine HCl [Uristat Ultra] 99.5 mg PO DAILY PRN PRN Reason: urinary pain cloNIDine HCL [Catapres] 0.1 mg PO HS Hyoscyamine Sulfate [Hyoscyamine Sulfate SL] 0.125 mg PO Q8H PRN PRN Reason: Gi Upset Bimatoprost [Lumigan 0.01% Ophth Soln] 1 drop BOTH EYES HS modafiniL [Provigil] 200 mg PO DAILY PRN PRN Reason: sleepiness Meloxicam [Mobic] 15 mg PO DAILY Ezetimibe [Zetia] 10 mg PO HS Cyanocobalamin (Vitamin B-12) [Vitamin B-12] 1,000 mcg PO DAILY busPIRone HCL [Buspar] 30 mg PO BID Fluticasone/Vilanterol [Breo Ellipta 100-25 Mcg Inhaler] 1 puff INHALATION DAILY Ondansetron Odt [Zofran ODT] 8 mg PO TID PRN PRN Reason: Nausea Metoclopramide [Reglan] 10 mg PO QID Fluticasone Nasal [place] [Flonase Nasal [place]] 2 spr EA NOSTRIL DAILY traZODone HCL 200 mg PO HS Butalbit/Acetamin/Caff/Codeine [Butal/APAP/Caff/Cod 76-690-83-30MG] 1 cap PO Q8H PRN PRN Reason: Migraine Headache tiZANidine HCL 2 mg PO DAILY PRN PRN Reason: Muscle Pain Dicyclomine HCl 20 mg PO Q6H PRN PRN Reason: Gi Upset cloNIDine HCL [Kapvay] 0.1 mg PO HS Dexmethylphenidate HCl [Dexmethylphenidate HCl ER] 10 mg PO DAILY sitaGLIPtin [Januvia] 100 mg PO DAILY glipiZIDE 10 mg PO DAILY PRN PRN Reason: Takes only with large meals Semaglutide [Ozempic] 2 mg SQ SA Brexpiprazole [Rexulti] 2 mg PO HS diazePAM [Valium] 2.5 - 5 mg PO DIRECTED PRN PRN Reason: Anxiety Discharge Medication List Levothyroxine Sodium [Synthroid] 100 mcg PO DAILY 01/16/19 [History] Methenamine Hippurate 1 gm PO BID 07/12/19 [History] Mirabegron [Myrbetriq] 25 mg PO DAILY 10/08/19 [History] Fenofibrate [Lofibra] 160 mg PO HS tab 10/17/19 [Rx] Gabapentin [Neurontin] 400 mg PO TID cap 10/17/19 [Rx] Rivaroxaban [Xarelto] 20 mg PO HS tab 10/17/19 [Rx] Promethazine [Phenergan] 25 mg PO Q6H PRN 11/30/19 [History] Levothyroxine Sodium [Synthroid] 125 mcg PO MOTUWETH 12/28/19 [History] Albuterol Inhaler [Ventolin Hfa Inhaler] 2 puff INHALATION Q2H PRN 09/19/20 [History] Dexlansoprazole [Dexilant] 60 mg PO DAILY 09/19/20 [History] Galcanezumab-Gnlm [Emgality Pen] 120 mg SQ Q30D 09/19/20 [History] Rizatriptan Benzoate [Rizatriptan] 5 mg PO BID PRN 09/19/20 [History] Cyanocobalamin (Vitamin B-12) [Vitamin B-12] 1,000 mcg PO DAILY 06/01/21 [History] Ezetimibe [Zetia] 10 mg PO HS 06/01/21 [History] busPIRone HCL [Buspar] 30 mg PO BID 06/01/21 [History] Baclofen [Lioresal] 20 mg PO QID 06/02/21 [History] Fluticasone/Vilanterol [Breo Ellipta 100-25 Mcg Inhaler] 1 puff INHALATION DAILY 09/27/21 [History] Ondansetron Odt [Zofran ODT] 8 mg PO TID PRN 09/27/21 [History] polyethylene glycoL 3350 [Miralax] 17 gm PO DAILY 09/27/21 [History] Fluticasone Nasal [place] [Flonase Nasal [place]] 2 spr EA NOSTRIL DAILY 04/26/22 [History] Levocetirizine Dihydrochloride [Xyzal] 5 mg PO DAILY 04/26/22 [History] [place] Carbonate [[place] Carbonate ER] 300 mg PO TID 04/26/22 [History] Metoclopramide [Reglan] 10 mg PO QID 04/26/22 [History] traZODone HCL 200 mg PO HS 04/26/22 [History] Butalbit/Acetamin/Caff/Codeine [Butal/APAP/Caff/Cod [id number]] 1 cap PO Q8H PRN 06/23/22 [History] Dicyclomine HCl 20 mg PO Q6H PRN 06/23/22 [History] Prochlorperazine [Compro] 25 mg RECTAL Q8H PRN 06/23/22 [History] Rimegepant Sulfate [Nurtec Odt] 75 mg PO DAILY PRN 06/23/22 [History] Sucralfate [Carafate] 1 gm PO TID-W/MEALS PRN 06/23/22 [History] cloNIDine HCL [Kapvay] 0.2 mg PO QAM 06/23/22 [History] modafiniL [Provigil] 200 mg PO DAILY 06/23/22 [History] tiZANidine HCL 2 mg PO DAILY PRN 06/23/22 [History] Dexmethylphenidate HCl [Dexmethylphenidate HCl ER] 10 mg PO DAILY 10/07/22 [History] HYDROcodone/APAP 7.5-325MG [[place] 7.5-325] 1 tab PO Q8H PRN 10/07/22 [History] Pioglitazone [Actos] 45 mg PO DAILY 10/07/22 [History] Semaglutide [Ozempic] 2 mg SQ SA 10/07/22 [History] cloNIDine HCL [Kapvay] 0.1 mg PO HS 10/07/22 [History] glipiZIDE 10 mg PO DAILY PRN 10/07/22 [History] sitaGLIPtin [Januvia] 100 mg PO DAILY 10/07/22 [History] Brexpiprazole [Rexulti] 2 mg PO HS 11/07/22 [History] Famotidine 40 mg PO HS 11/07/22 [History] Glycopyrrolate [Robinul] 2 mg PO TID 11/07/22 [History] Metoprolol Succinate (ER) [Toprol XL] 100 mg PO DAILY 11/07/22 [History] Phenazopyridine HCl [Uristat Ultra] 99.5 mg PO DAILY PRN 11/07/22 [History] cloNIDine HCL [Catapres] 0.1 mg PO HS 12/15/22 [History] Hyoscyamine Sulfate [Hyoscyamine Sulfate SL] 0.125 mg PO Q8H PRN 12/20/22 [History] diazePAM [Valium] 2.5 - 5 mg PO DIRECTED PRN 02/18/23 [History] Bimatoprost [Lumigan 0.01% Ophth Soln] 1 drop BOTH EYES HS 03/15/23 [History] Meloxicam [Mobic] 15 mg PO DAILY 03/15/23 [History] modafiniL [Provigil] 200 mg PO DAILY PRN 03/15/23 [History] Follow up Appointment(s)/Referral(s): Erna Kumar DO [STAFF PHYSICIAN] - 2 Weeks Activity/Diet/Wound Care/Special Instructions: Continue regular activity. May shower as previously. Follow-up in 2 weeks for follow-up. May utilized at the beginning of the week when needed. Discharge Disposition: HOME SELF-CARE
[2023-03-17 16:25] LABS: Glucose,Whole Blood 100 mg/dL (70-110)
--- NOTE | 2023-03-17 17:57 | XR ---
EXAMINATION: XR chest 1V DATE AND TIME: 03/17/2023 5:22 PM CLINICAL INDICATION: POST MEDIPORT PLACEMENT LEFT SIDE TECHNIQUE: Portable AP semiupright COMPARISON: None FINDINGS: The lungs are clear. The pleural spaces are negative for pneumothorax or pleural effusion. Left subclavian central line tip superimposed over the expected position of the right atrium. Right u pper extremity PICC line tip superimposed over the expected position of the confluence of the right s ubclavian/SVC. The cardiac silhouette is not enlarged. The remainder of the mediastinal silhouette is unremarkable. The skeletal structures and soft tissues are negative for acute findings. IMPRESSION: Left subclavian central line and right upper extremity PICC as noted.
[2023-03-17 18:11] VITALS: RESP 20
[2023-03-17 18:14] VITALS: BP 118/73; PULSE 87
[2023-03-17] MEDS ORDERED: HEPARIN SODIUM,PORCINE 5,000 UNIT/ML 1 ML VIAL IV ONE (18:25)
--- NOTE | 2023-03-18 09:31 | FL ---
EXAMINATION TYPE: FL guided central line placemt HISTORY: Fluoroscopy time Impression: 1. Fluoroscopy support provided to the referring physician. DAP=[phone]
== END 2023-03-17 18:38 | disposition home or self-care (01) ==
LOC: OR 09:49
PROVIDERS: ATTEND Surgery
DX: T82.514A Breakdown (mechanical) of infusion catheter, initial encounter (principal)
CPT/HCPCS: 81025; 80053; 85025; 77001; 71045; 36582; C1788; J2250; J1644 ×2; J2405; J0690; J2001; J3010 ×2; J1642; J2704

== ENCOUNTER 2023-04-12 17:47 | Inpatient (IN) | payer MEDICARE, OTHER ==
[2023-04-12] MEDS ORDERED: ACETAMINOPHEN TAB 500 MG TAB PO STA (18:48)
--- NOTE | 2023-04-12 18:51 | ED ---
General Adult HPI - General Chief complaint: Urogenital Stated complaint: fever/UTI Time Seen by Provider: 04/12/23 18:28 Source: patient, RN notes reviewed Mode of arrival: wheelchair Limitations: no limitations - History of Present Illness Initial comments: Patient is a pleasant 42-year-old female presenting to the emergency department with concern for urinary symptoms. Onset of symptoms was 3 days ago. Patient does have history of similar symptoms previously and did start Keflex at home. Patient does have history of severe infection back in November with ESBL infection. Patient does not get any better with Keflex and her doctor advise her to come to the emergency department. Patient has had chills, fever starting today. Mild chest congestion and cough. Patient does have history of lupus as well as a chondral disease. Patient is not ambulatory. - Related Data Home Medications Medication Instructions Recorded Confirmed Levothyroxine Sodium [Synthroid] 100 mcg PO DAILY 01/16/19 03/17/23 Methenamine Hippurate 1 gm PO BID 07/12/19 03/17/23 Mirabegron [Myrbetriq] 25 mg PO DAILY 10/08/19 03/17/23 Promethazine [Phenergan] 25 mg PO Q6H PRN 11/30/19 03/17/23 Levothyroxine Sodium [Synthroid] 125 mcg PO MOTUWETH 12/28/19 03/17/23 Albuterol Inhaler [Ventolin Hfa 2 puff INHALATION Q2H PRN 09/19/20 03/17/23 Inhaler] Dexlansoprazole [Dexilant] 60 mg PO DAILY 09/19/20 03/17/23 Galcanezumab-Gnlm [Emgality Pen] 120 mg SQ Q30D 09/19/20 03/17/23 Rizatriptan Benzoate [Rizatriptan] 5 mg PO BID PRN 09/19/20 03/17/23 Cyanocobalamin (Vitamin B-12) 1,000 mcg PO DAILY 06/01/21 03/17/23 [Vitamin B-12] Ezetimibe [Zetia] 10 mg PO HS 06/01/21 03/17/23 busPIRone HCL [Buspar] 30 mg PO BID 06/01/21 03/17/23 Baclofen [Lioresal] 20 mg PO QID 06/02/21 03/17/23 Fluticasone/Vilanterol [Breo 1 puff INHALATION DAILY 09/27/21 03/17/23 Ellipta 100-25 Mcg Inhaler] Ondansetron Odt [Zofran ODT] 8 mg PO TID PRN 09/27/21 03/17/23 polyethylene glycoL 3350 [Miralax] 17 gm PO DAILY 09/27/21 03/17/23 Fluticasone Nasal Globe [Flonase 2 spr EA NOSTRIL DAILY 04/26/22 03/17/23 Nasal Globe] Levocetirizine Dihydrochloride 5 mg PO DAILY 04/26/22 03/17/23 [Xyzal] [place] Carbonate [[place] [employer] 300 mg PO TID 04/26/22 03/17/23 Carbonate ER] Metoclopramide [Reglan] 10 mg PO QID 04/26/22 03/17/23 traZODone HCL 200 mg PO HS 04/26/22 03/17/23 Butalbit/Acetamin/Caff/Codeine 1 cap PO Q8H PRN 06/23/22 03/15/23 [Butal/APAP/Caff/Cod 35-221-66-30MG] Dicyclomine HCl 20 mg PO Q6H PRN 06/23/22 03/15/23 Prochlorperazine [Compro] 25 mg RECTAL Q8H PRN 06/23/22 03/17/23 Rimegepant Sulfate [Nurtec Odt] 75 mg PO DAILY PRN 06/23/22 03/17/23 Sucralfate [Carafate] 1 gm PO TID-W/MEALS PRN 06/23/22 03/17/23 cloNIDine HCL [Kapvay] 0.2 mg PO QAM 06/23/22 03/17/23 modafiniL [Provigil] 200 mg PO DAILY 06/23/22 03/17/23 tiZANidine HCL 2 mg PO DAILY PRN 06/23/22 03/17/23 Dexmethylphenidate HCl 10 mg PO DAILY 10/07/22 03/17/23 [Dexmethylphenidate HCl ER] HYDROcodone/APAP 7.5-325MG [[place] 1 tab PO Q8H PRN 10/07/22 03/17/23 7.5-325] Pioglitazone [Actos] 45 mg PO DAILY 10/07/22 03/17/23 Semaglutide [Ozempic] 2 mg SQ SA 10/07/22 03/17/23 cloNIDine HCL [Kapvay] 0.1 mg PO HS 10/07/22 03/17/23 glipiZIDE 10 mg PO DAILY PRN 10/07/22 03/17/23 sitaGLIPtin [Januvia] 100 mg PO DAILY 10/07/22 03/17/23 Brexpiprazole [Rexulti] 2 mg PO HS 11/07/22 03/17/23 Famotidine 40 mg PO HS 11/07/22 03/17/23 Glycopyrrolate [Robinul] 2 mg PO TID 11/07/22 03/17/23 Metoprolol Succinate (ER) [Toprol 100 mg PO DAILY 11/07/22 03/17/23 XL] Phenazopyridine HCl [Uristat Ultra] 99.5 mg PO DAILY PRN 11/07/22 03/15/23 cloNIDine HCL [Catapres] 0.1 mg PO HS 12/15/22 03/17/23 Hyoscyamine Sulfate [Hyoscyamine 0.125 mg PO Q8H PRN 12/20/22 03/15/23 Sulfate SL] diazePAM [Valium] 2.5 - 5 mg PO DIRECTED PRN 02/18/23 03/17/23 Bimatoprost [[place] 0.01% Ophth 1 drop BOTH EYES HS 03/15/23 03/17/23 Soln] Meloxicam [Mobic] 15 mg PO DAILY 03/15/23 03/15/23 modafiniL [Provigil] 200 mg PO DAILY PRN 03/15/23 03/17/23 Previous Rx's Medication Instructions Recorded Fenofibrate [Lofibra] 160 mg PO HS tab 10/17/19 Gabapentin [Neurontin] 400 mg PO TID cap 10/17/19 Rivaroxaban [Xarelto] 20 mg PO HS tab 10/17/19 Allergies Allergy/AdvReac Type Severity Reaction Status Date / Time peanut oil Allergy Severe Nausea & Verified 03/15/23 11:25 Vomiting,itching barium sulfate Allergy Anaphylaxis Verified 03/15/23 11:25 doxepin [Doxepin] Allergy Anaphylaxis Verified 03/15/23 11:25 ephedrine Allergy Chest Verified 03/15/23 11:25 Pain/tachycardia ertapenem [From Invanz] Allergy Rash/Hives- Verified 03/15/23 11:25 like a chemical burn peanut Allergy Anaphylaxis Verified 03/15/23 11:25 pseudoephedrine Allergy Chest Pain Verified 03/15/23 11:25 Sulfa (Sulfonamide Allergy Nausea & Verified 03/15/23 11:25 Antibiotics) Vomiting, DEHYDRATION sumatriptan [From Imitrex] Allergy affects Verified 03/15/23 11:25 vision-unable to see for hrs. doxycycline AdvReac Nausea & Verified 03/15/23 11:25 Vomiting & Diarrhea pseudoephedrine HCl AdvReac chest Verified 03/15/23 11:25 [From Sudafed] pain/tachycardia sulfamethoxazole AdvReac Nausea & Verified 03/15/23 11:25 [From Bactrim] Vomiting Adhesive Tape AdvReac Rash/Hives Uncoded 03/15/23 11:25 Review of Systems ROS Statement: Those systems with pertinent positive or pertinent negative responses have been documented in the HPI. ROS Other: All systems not noted in ROS Statement are negative. Constitutional: Reports: as per HPI, fever, chills Eyes: Denies: eye pain ENT: Reports: congestion Respiratory: Reports: cough. 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 Lymphedema left arm due to DVTs, avoid use of left arm for BP, IV, blood draws. Hx Vtach, pituitary microadenoma, patent foramen ovale, narcolepsy, gastropareis, hx orthostatic hypotension/syncope, migraines with hemiplegia, pernicious anemia, polycystic ovarian syndrome, neuropathy bilateral legs/feet/arms, uses wheelchair, able to transfer and walk few steps. CPAP use. Lupus anticoagulation syndrome. Enlarged liver. States her port is not working and needs to be replaced. History of Any Multi-Drug Resistant Organisms: ESBL, MRSA Date of last positivie culture/infection: 12/20/22 ESBL E.coli; 03/09/17 MRSA MDRO Source:: Urine-ESBL; Left Arm-MRSA Past Surgical History: Cholecystectomy, Uterine Ablation Additional Past Surgical History / Comment(s): Colonscopy/EGD, GERSON, PORT-A-CATH INSERTION X3, PICC line insertion and later removed. Past Anesthesia/Blood Transfusion Reactions: Previous Problems w/ Anesthesia, Motion Sickness Additional Past Anesthesia/Blood Transfusion Reaction / Comment(s): Patient states difficult to sedate. Hx blood transfusions with no issues. Past Psychological History: Anxiety, Bipolar, Depression, PTSD Smoking Status: Never smoker Past Alcohol Use History: Rare Past Drug Use History: None Reported - Past Family History Brother(s) Family Medical History: Diabetes Mellitus, Hyperlipidemia, Hypertension Additional Family Medical History / Comment(s): Patient states she has 1 brother with no major medical problems. Father History Unknown: Yes Family Medical History: Diabetes Mellitus, Hyperlipidemia, Hypertension Mother Family Medical History: CVA/TIA, Diabetes Mellitus, Deep Vein Thrombosis (DVT) Additional Family Medical History / Comment(s): Antiphospholipid antibody syndrome, Lupus, dementia. Multiple DVT's and Strokes. General Exam Limitations: no limitations General appearance: alert, in no apparent distress Head exam: Present: normocephalic Eye exam: Present: normal appearance Neck exam: Present: normal inspection. Absent: meningismus Respiratory exam: Present: normal lung sounds bilaterally Cardiovascular Exam: Present: regular rate, normal rhythm GI/Abdominal exam: Present: soft. Absent: tenderness Extremities exam: Present: normal inspection Neurological exam: Present: alert Psychiatric exam: Present: normal affect, normal mood Skin exam: Present: normal color Course Vital Signs 04/12/23 17:52 Temperature 99 F Pulse Rate 96 Respiratory 20 Rate Blood Pressure 140/93 O2 Sat by Pulse 98 Oximetry Medical Decision Making - Medical Decision Making Was pt. sent in by a medical professional or institution (, PA, WIRELINE FIELD OPERATOR, urgent care, hospital, or snf...) When possible be specific @ -Patient was advised by her primary care physician Dr. Montano to come to the hospital Did you speak to anyone other than the patient for history (EMS, parent, family, police, friend...)? What history was obtained from this source @ -Previous admission reviewed Did you review nursing and triage notes (agree or disagree)? Why? @ -I reviewed and agree with nursing and triage notes Were old charts reviewed (outside hosp., previous admission, EMS record, old EKG, old radiological studies, urgent care reports/EKG's, snf records)? Report findings @ -No old charts were reviewed Differential Diagnosis (chest pain, altered mental status, abdominal pain women, abdominal pain men, vaginal bleeding, weakness, fever, dyspnea, syncope, headache, dizziness, GI bleed, back pain, seizure, CVA, palpatations, mental health)? @ -Differential Fever: Pneumonia, viral URI, endocarditis, myocarditis, pericarditis, otitis, sinusitis, peritonsillar Abscess, retropharyngeal Abscess, epiglottitis, peritonitis, appendicitis, [place] cystitis, diverticulitis, hepatitis, colitis, UTI, PID, TOA, pyelonephritis, prostatitis, epididymitis, meningitis, encephalitis, pulmonary embolism, CVA, thyroid storm, pancreatitis, adrenal crisis, cavernous sinus thrombosis, this is not meant to be an all-inclusive list. EKG interpreted by me (3pts min.). @ -As above X-rays interpreted by me (1pt min.). @ -Chest x-ray shows no acute process CT interpreted by me (1pt min.). @ -None done U/S interpreted by me (1pt. min.). @ -None done What testing was considered but not performed or refused? (CT, X-rays, U/S, labs)? Why? @ -None What meds were considered but not given or refused? Why? @ -None Did you discuss the management of the patient with other professionals (professionals i.e. , PA, WIRELINE FIELD OPERATOR, lab, RT, psych nurse, geriatric social work professor, strap setter, teacher, chief financial officer, shoe caser)? Give summary @ -Case was discussed with Dr. Thomas who is familiar with this patient and will admit for observation. He agrees with a dose of Rocephin and ID consult Was smoking cessation discussed for >3mins.? @ -No Was critical care preformed (if so, how long)? @ -No Were there social determinants of health that impacted care today? How? (Homelessness, low income, unemployed, alcoholism, drug addiction, transportation, low edu. Level, literacy, decrease access to med. care, senior care, rehab)? @ -No Was there de-escalation of care discussed even if they declined (Discuss DNR or withdrawal of care, Hospice)? DNR status @ -No What co-morbidities impacted this encounter? (DM, HTN, Smoking, COPD, CAD, Cancer, CVA, ARF, Chemo, Hep., AIDS, mental health diagnosis, sleep apnea, morbid obesity)? @ -None Was patient admitted / discharged? Hospital course, mention meds given and route, prescriptions, significant lab abnormalities, going to OR and other pertinent info. @ -Patient does have fever unknown origin. Patient will be held with infectious disease consult. Patient reevaluated and updated. Undiagnosed new problem with uncertain prognosis? @ -No Drug Therapy requiring intensive monitoring for toxicity (Heparin, Nitro, Insulin, Cardizem)? @ -No Were any procedures done? @ -No Diagnosis/symptom? @ -Fever Acute, or Chronic, or Acute on Chronic? @ -Acute Uncomplicated (without systemic symptoms) or Complicated (systemic symptoms)? @ -default Side effects of treatment? @ -No Exacerbation, Progression, or Severe Exacerbation? @ -No Poses a threat to life or bodily function? How? (Chest pain, [place], [place], pneumonia, PE, COPD, DKA, ARF, appy, cholecystitis, CVA, Diverticulitis, Homicidal, Suicidal, threat to staff... and all critical care pts) @ -No - Lab Data Result diagrams: 04/12/23 19:34 04/12/23 19:34 Lab Results 04/12/23 04/12/23 04/12/23 Range/Units 19:34 19:34 19:34 WBC 7.4 (3.8-10.6) k/uL RBC 3.73 L (3.80-5.40) m/uL Hgb 10.6 L (11.4-16.0) gm/dL Hct 33.2 L (34.0-46.0) % MCV 89.1 (80.0-100.0) fL MCH 28.5 (25.0-35.0) pg MCHC 32.0 (31.0-37.0) g/dL RDW 14.3 (11.5-15.5) % Plt Count 286 (150-450) k/uL MPV 8.0 Neutrophils % 72 % Lymphocytes % 17 % Monocytes % 6 % Eosinophils % 3 % Basophils % 0 % Neutrophils # 5.3 (1.3-7.7) k/uL Lymphocytes # 1.3 (1.0-4.8) k/uL Monocytes # 0.4 (0-1.0) k/uL Eosinophils # 0.2 (0-0.7) k/uL Basophils # 0.0 (0-0.2) k/uL PT 10.2 (9.0-12.0) sec INR 1.0 (<1.2) APTT 23.6 (22.0-30.0) sec Sodium 137 (137-145) mmol/L Potassium 4.4 (3.5-5.1) mmol/L Chloride 110 H (98-107) mmol/L Carbon Dioxide 20 L (22-30) mmol/L Anion Gap 7 mmol/L BUN 11 (7-17) mg/dL Creatinine 0.77 (0.52-1.04) mg/dL Est GFR (CKD-EPI)AfAm >90 (>60 ml/min/1.73 sqM) Est GFR (CKD-EPI)NonAf >90 (>60 ml/min/1.73 sqM) Glucose 104 H (74-99) mg/dL Plasma Lactic Acid Joce (0.7-2.0) mmol/L Calcium 9.4 (8.4-10.2) mg/dL Total Bilirubin 0.3 (0.2-1.3) mg/dL AST 22 (14-36) U/L ALT 20 (4-34) U/L Alkaline Phosphatase 33 L (38-126) U/L Total Protein 6.3 (6.3-8.2) g/dL Albumin 3.8 (3.5-5.0) g/dL Urine Color Urine Appearance (Clear) Urine pH (5.0-8.0) Ur Specific [place] (1.001-1.035) Urine Protein (Negative) Urine Glucose (UA) (Negative) Urine Ketones (Negative) Urine Blood (Negative) Urine Nitrite (Negative) Urine Bilirubin (Negative) Urine Urobilinogen (<2.0) mg/dL Ur Leukocyte Esterase (Negative) 04/12/23 04/12/23 Range/Units 19:34 19:34 WBC (3.8-10.6) k/uL RBC (3.80-5.40) m/uL Hgb (11.4-16.0) gm/dL Hct (34.0-46.0) % MCV (80.0-100.0) fL MCH (25.0-35.0) pg MCHC (31.0-37.0) g/dL RDW (11.5-15.5) % Plt Count (150-450) k/uL MPV Neutrophils % % Lymphocytes % % Monocytes % % Eosinophils % % Basophils % % Neutrophils # (1.3-7.7) k/uL Lymphocytes # (1.0-4.8) k/uL Monocytes # (0-1.0) k/uL Eosinophils # (0-0.7) k/uL Basophils # (0-0.2) k/uL PT (9.0-12.0) sec INR (<1.2) APTT (22.0-30.0) sec Sodium (137-145) mmol/L Potassium (3.5-5.1) mmol/L Chloride (98-107) mmol/L Carbon Dioxide (22-30) mmol/L Anion Gap mmol/L BUN (7-17) mg/dL Creatinine (0.52-1.04) mg/dL Est GFR (CKD-EPI)AfAm (>60 ml/min/1.73 sqM) Est GFR (CKD-EPI)NonAf (>60 ml/min/1.73 sqM) Glucose (74-99) mg/dL Plasma Lactic Acid Joce 1.0 (0.7-2.0) mmol/L Calcium (8.4-10.2) mg/dL Total Bilirubin (0.2-1.3) mg/dL AST (14-36) U/L ALT (4-34) U/L Alkaline Phosphatase (38-126) U/L Total Protein (6.3-8.2) g/dL Albumin (3.5-5.0) g/dL Urine Color Light Yellow Urine Appearance Clear (Clear) Urine pH 5.5 (5.0-8.0) Ur Specific [place] 1.016 (1.001-1.035) Urine Protein Negative (Negative) Urine Glucose (UA) Negative (Negative) Urine Ketones Negative (Negative) Urine Blood Negative (Negative) Urine Nitrite Negative (Negative) Urine Bilirubin Negative (Negative) Urine Urobilinogen <2.0 (<2.0) mg/dL Ur Leukocyte Esterase Negative (Negative) Disposition Clinical Impression: Fever Disposition: ADMITTED IP TO THIS HOSP Is patient prescribed a controlled substance at d/c from ED?: No Referrals: Julissa Montano III, MD [Primary Care Provider] - 1-2 days Time of Disposition: 21:02
[2023-04-12 19:46] LABS: HCT 33.2 % (34.0-46.0); HGB 10.6 gm/dL (11.4-16.0); MCH 28.5 pg (25.0-35.0); MCV 89.1 fL (80.0-100.0); Platelet Count 286 k/uL (150-450); RBC 3.73 m/uL (3.80-5.40); RDW 14.3 % (11.5-15.5); WBC 7.4 k/uL (3.8-10.6)
[2023-04-12 19:47] LABS: Basophils % (A) 0 %; Eosinophils # (A) 0.2 k/uL (0-0.7); Eosinophils % (A) 3 %; Lymphocytes # (A) 1.3 k/uL (1.0-4.8); Lymphocytes % (A) 17 %; Monocytes # (A) 0.4 k/uL (0-1.0); Monocytes % (A) 6 %; Neutrophils # (A) 5.3 k/uL (1.3-7.7); Neutrophils % (A) 72 %
[2023-04-12 19:52] LABS: Appearance,Urine Clear (Clear); Bilirubin,Urine Negative (Negative); Blood,Urine Negative (Negative); Color,Urine Light Yellow; Glucose,Urine (UA) Negative (Negative); Ketones,Urine Negative (Negative); Leukocyte Esterase,Urine Negative (Negative); Nitrite,Urine Negative (Negative); PH, Urine 5.5 (5.0-8.0); Protein,Urine Negative (Negative); Specific Gravity,Urine 1.016 (1.001-1.035); Urobilinogen,Urine <2.0 mg/dL (<2.0)
[2023-04-12 19:56] LABS: ALT 20 U/L (4-34); AST 22 U/L (14-36); African American GFR (CKD) >90 (>60 ml/min/1.73 sqM); Albumin 3.8 g/dL (3.5-5.0); Alkaline Phosphatase 33 U/L (38-126); Anion Gap 7 mmol/L; Blood Urea Nitrogen 11 mg/dL (7-17); Calcium 9.4 mg/dL (8.4-10.2); Carbon Dioxide 20 mmol/L (22-30); Chloride 110 mmol/L (98-107); Glucose 104 mg/dL (74-99); Non-African American GFR(CKD) >90 (>60 ml/min/1.73 sqM); Potassium 4.4 mmol/L (3.5-5.1); Sodium 137 mmol/L (137-145); Total Bilirubin 0.3 mg/dL (0.2-1.3); Total Protein 6.3 g/dL (6.3-8.2)
[2023-04-12 20:01] LABS: Partial Thromboplastin Time 23.6 sec (22.0-30.0); Prothrombin Time 10.2 sec (9.0-12.0)
[2023-04-12] MEDS ORDERED: NALOXONE 0.4 MG/ML 1 ML VIAL IV PRN (21:03)
[2023-04-12] MEDS ORDERED: ACETAMINOPHEN TAB 325 MG TAB PO PRN (21:03)
--- NOTE | 2023-04-12 21:23 | XR ---
EXAMINATION TYPE: XR chest 2V DATE OF EXAM: 04/12/2023 COMPARISON: 03/17/2023 INDICATION: Cough fever TECHNIQUE: Frontal and lateral views of the chest are obtained. FINDINGS: The heart size is normal. The pulmonary vasculature is normal. The lungs are clear. Port is present on the left with the tip in the right atrium. IMPRESSION: 1. No acute pulmonary process.
[2023-04-12] MEDS: SODIUM CHLORIDE 0.9% 1,000 ML IV SCH (22:07)
[2023-04-12 23:07] LABS: Glucose,Whole Blood 102 mg/dL (70-110)
[2023-04-13 06:16] LABS: ALT 18 U/L (4-34); AST 18 U/L (14-36); African American GFR (CKD) >90 (>60 ml/min/1.73 sqM); Albumin 3.2 g/dL (3.5-5.0); Alkaline Phosphatase 33 U/L (38-126); Anion Gap 10 mmol/L; Blood Urea Nitrogen 10 mg/dL (7-17); Calcium 8.9 mg/dL (8.4-10.2); Carbon Dioxide 18 mmol/L (22-30); Chloride 111 mmol/L (98-107); Glucose 116 mg/dL (74-99); Non-African American GFR(CKD) >90 (>60 ml/min/1.73 sqM); Sodium 139 mmol/L (137-145); Total Bilirubin 0.2 mg/dL (0.2-1.3); Total Protein 5.5 g/dL (6.3-8.2)
[2023-04-13 06:24] LABS: Basophils % (A) 0 %; Eosinophils # (A) 0.2 k/uL (0-0.7); Eosinophils % (A) 3 %; HCT 32.1 % (34.0-46.0); HGB 10.1 gm/dL (11.4-16.0); Lymphocytes # (A) 1.7 k/uL (1.0-4.8); Lymphocytes % (A) 30 %; MCH 28.7 pg (25.0-35.0); MCHC 31.5 g/dL (31.0-37.0); MCV 91.3 fL (80.0-100.0); Mean Platelet Volume 8.2; Monocytes # (A) 0.4 k/uL (0-1.0); Monocytes % (A) 7 %; Neutrophils # (A) 3.3 k/uL (1.3-7.7); Neutrophils % (A) 58 %; Platelet Count 267 k/uL (150-450); RBC 3.51 m/uL (3.80-5.40); RDW 14.3 % (11.5-15.5); WBC 5.7 k/uL (3.8-10.6)
[2023-04-13 07:44] LABS: Glucose,Whole Blood 128 mg/dL (70-110)
[2023-04-13] MEDS: SODIUM CHLORIDE 0.9% 1,000 ML IV SCH ×2 (08:45→21:57)
[2023-04-13] MEDS ORDERED: DICYCLOMINE 20 MG TAB PO PRN (10:00)
[2023-04-13] MEDS ORDERED: diazePAM 5 MG TAB PO PRN (10:00)
[2023-04-13] MEDS ORDERED: PROMETHAZINE 25 MG TAB PO PRN (10:00)
[2023-04-13] MEDS ORDERED: BUTALB/APAP/CAFF 50-325-40MG TAB PO PRN (10:00)
[2023-04-13] MEDS ORDERED: NON FORMULARY DRUG (Rimegepant Sulfate [Nurtec Odt] 75 MG Tablet) PO PRN (10:00)
[2023-04-13] MEDS ORDERED: PHENAZOPYRIDINE 100 MG TAB PO PRN (10:00)
[2023-04-13] MEDS ORDERED: NON FORMULARY DRUG (Galcanezumab-Gnlm [Emgality Pen] 120 MG/ML Pen.Injctr) SQ SCH (10:00)
[2023-04-13] MEDS ORDERED: tiZANidine 4 MG TAB PO PRN (10:00)
[2023-04-13] MEDS ORDERED: ALBUTEROL NEBULIZED 2.5 MG/3 ML INHALATION PRN (10:00)
[2023-04-13] MEDS ORDERED: PROCHLORPERAZINE SUPPOSITORY 25 MG SUPP RECTAL PRN (10:00)
[2023-04-13] MEDS ORDERED: DEXTROSE 50% SYRINGE 50 ML IVP PRN ×2 (10:42)
[2023-04-13] MEDS: LEVOTHYROXINE 125 MCG TAB PO SCH (10:45)
[2023-04-13] MEDS: LEVOTHYROXINE 100 MCG TAB PO SCH (10:45)
[2023-04-13] MEDS ORDERED: PATIENT'S OWN (Rimegepant Sulfate [Nurtec Odt] 75 MG Tablet) PO PRN (11:31)
[2023-04-13] MEDS: PATIENT'S OWN (Mirabegron [Myrbetriq] 25 MG Tab.Er.24h) PO SCH (12:17)
[2023-04-13] MEDS: BACLOFEN 10 MG TAB PO SCH ×3 (12:17→21:57)
[2023-04-13] MEDS: CLONIDINE HCL 0.1 MG PO SCH ×2 (12:19→21:50)
[2023-04-13] MEDS: DEXILANT 60 MG PO SCH (12:20)
[2023-04-13] MEDS: JANUVIA 100 MG PO SCH (12:21)
[2023-04-13 12:32] LABS: Glucose,Whole Blood 118 mg/dL (70-110)
--- NOTE | 2023-04-13 12:47 | HP ---
HISTORY AND PHYSICAL CHIEF COMPLAINT: Fever. HISTORY OF PRESENT ILLNESS: This is a 42-year-old woman with a past history of diabetes mellitus, history of thyroid disorder, mitochondrial metabolic disorder, had a past medical history of multiple infections with ESBL and MRSA. Currently, the patient is having running fever of 2 days. The patient has no urinary symptoms, being outpatient, treated with Keflex. Because of lack of improvement, the patient came to [facility] and admitted for further evaluation. The patient also noted somewhat purulent drainage from the port site on the left chest also. There is no history of any fever, rigors, or chills. The patient has some vague abdominal discomfort. PAST MEDICAL HISTORY: Reviewed, include asthma, diabetes mellitus, rest of the history and rest of the chart is also reviewed. HOME MEDICATIONS: Reviewed include Xarelto, dose and rest of medications reviewed. ALLERGIES: Reviewed include ephedrine, rest of the allergies reviewed. FAMILY HISTORY: History of diabetes mellitus, hypertension, hyperlipidemia. SOCIAL HISTORY: No history of smoking. REVIEW OF SYSTEMS: A 14-point review is negative except as mentioned earlier. PHYSICAL EXAMINATION: VITAL SIGNS: Pulse is 76, blood pressure 107/70, and respirations 20. HEENT: Conjunctivae normal. NECK: No jugular venous distention. CARDIOVASCULAR: S1, S2. RESPIRATIONS: No rhonchi. ABDOMEN: Soft. LEGS: No edema, no swelling. NERVOUS SYSTEM: Diffusely weak. SKIN: No ulcer, rash, bleeding. JOINTS: No active deforming arthropathy. LABORATORY DATA: Reviewed. ASSESSMENT: 1. Fever, for further evaluation, rule out sepsis and UTI. 2. Asthma. 3. Diabetes mellitus type 2. 4. History ESBL MRSA. 5. Immunosuppressed. 6. Multiple complex medical issues. RECOMMENDATION: This is a 42-year-old woman who presented with multiple complex medical issues, we will monitor the patient closely, will obtain the cultures and I would also recommend infectious disease evaluation. Resume the home medications. Prognosis guarded because of multiple complex medical issues. Further recommendations to follow, see orders for details. MMODL / IJN: [id number] /
[2023-04-13] MEDS: DEXMETHYLPHENIDATE HCL 10 MG PO SCH (13:28)
[2023-04-13] MEDS: INSULIN ASPART (NovoLOG) 100 UNIT/ML VIAL SQ SCH ×3 (13:53→21:46)
[2023-04-13] MEDS ORDERED: NON FORMULARY DRUG (Lithium Carbonate [Lithium Carbonate Er] 300 MG Tablet) PO SCH (16:00)
[2023-04-13] MEDS: GLYCOPYRROLATE 1 MG TAB PO SCH ×2 (16:59→21:48)
[2023-04-13] MEDS: LITHIUM CARBONATE 300 MG PO SCH ×2 (16:59→21:50)
[2023-04-13] MEDS: GABAPENTIN 400 MG CAP PO SCH ×2 (17:00→21:57)
[2023-04-13] MEDS: HYDROcodone/APAP 7.5-325MG 1 EACH TAB PO PRN (17:06)
[2023-04-13 17:31] LABS: Glucose,Whole Blood 101 mg/dL (70-110)
[2023-04-13] MEDS: ONDANSETRON ODT 8 MG TAB.RAPDIS PO PRN (17:42)
[2023-04-13] MEDS: SUCRALFATE 1 GM TAB PO PRN (19:35)
[2023-04-13 20:41] LABS: Glucose,Whole Blood 155 mg/dL (70-110)
[2023-04-13] MEDS ORDERED: NON FORMULARY DRUG (Clonidine Hcl [Kapvay] 0.1 MG Tab.Er.12h) PO SCH (21:00)
[2023-04-13] MEDS: cloNIDine HCL 0.1 MG TAB PO SCH (21:47)
[2023-04-13] MEDS: busPIRone HCl 10 MG TAB PO SCH (21:47)
[2023-04-13] MEDS: traZODone HCL 100 MG TAB PO SCH (21:48)
[2023-04-13] MEDS: RIVAROXABAN 20 MG TAB PO SCH (21:48)
[2023-04-13] MEDS: EZETIMIBE 10 MG TAB PO SCH (21:48)
[2023-04-13] MEDS: FAMOTIDINE 20 MG TAB PO SCH (21:48)
[2023-04-13] MEDS: PATIENT'S OWN (Brexpiprazole [Rexulti] 2 MG Tablet) PO SCH (21:48)
[2023-04-13] MEDS: FENOFIBRATE 160 MG TAB PO SCH (21:48)
[2023-04-13] MEDS: LATANOPROST 0.005% OPHTH DROPS 2.5 ML BTL BOTH EYES SCH (21:51)
[2023-04-13] MEDS: NON FORMULARY DRUG (Methenamine Hippurate [Methenamine Hippurate] 1 GM Tablet) PO SCH (21:52)
--- NOTE | 2023-04-13 22:16 | P.CONS ---
History of Present Illness - Reason for Consult Consult date: 04/13/23 Fever Requesting physician: Sunny Grier - Chief Complaint Fever x one day - History of Present Illness Patient is a 42-year-old female with a past medical history s ignificant for asthma diabetes mellitus DVT reflux hypertension hyperlipidemia patient did have a mitochondrial disorder and to require hydration on the regular basis for the patient did have multiple lines related infection, currently she does have left chest wall Mediport site needle is changed every week patient mentioned on Tuesday at the time of needle change, was some erythema around it and there was concern for possible infection to the port site patient also complaining of fever at home patient also mentioned that she was having some urinary symptoms of burning and frequency and the primary care doctor started her on Keflex concerning for UTI however with the persistent fever the patient to present to the hospital on the presentation to hospital she did have a low-grade fever of 99 F patient was not hypoxic or tachycardic patient did have a normal white count with no left shift kidney function has been normal liver enzymes are normal urine has been negative influenza RSV and COVID testing was negative patient did have a chest x-ray no acute process patient was admitted to the hospital has been started on ceftriaxone infectious disease was consulted for further management of antibiotic therapy Review of Systems Positive point and negatives has been mentioned in the HPI, complete review of systems was performed and all other systems are negative 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 Lymphedema left arm due to DVTs, avoid use of left arm for BP, IV, blood draws. Hx Vtach, pituitary microadenoma, patent foramen ovale, narcolepsy, gastropareis, hx orthostatic hypotension/syncope, migraines with hemiplegia, pernicious anemia, polycystic ovarian syndrome, neuropathy bilateral legs/feet/arms, uses wheelchair, able to transfer and walk few steps. CPAP use. Lupus anticoagulation syndrome. Enlarged liver. States her port is not working and needs to be replaced. History of Any Multi-Drug Resistant Organisms: ESBL, MRSA Year Discovered:: 12/20/22 ESBL E.coli; 03/09/17 MRSA MDRO Source:: Urine-ESBL; Left Arm-MRSA Past Surgical History: Cholecystectomy, Uterine Ablation Additional Past Surgical History / Comment(s): Colonscopy/EGD, GERSON, PORT-A-CATH INSERTION X3, PICC line insertion and later removed. Past Anesthesia/Blood Transfusion Reactions: Previous Problems w/ Anesthesia, Motion Sickness Additional Past Anesthesia/Blood Transfusion Reaction / Comm: Patient states d ifficult to sedate. Hx blood transfusions with no issues. Past Psychological History: Anxiety, Bipolar, Depression, PTSD Additional Psychological History / Comment(s): Autism spectrum Smoking Status: Never smoker Past Alcohol Use History: Rare Additional Past Alcohol Use History / Comment(s): . Past Drug Use History: None Reported - Past Family History Brother(s) Family Medical History: Diabetes Mellitus, Hyperlipidemia, Hypertension Additional Family Medical History / Comment(s): Patient states she has 1 brother with no major medical problems. Father History Unknown: Yes Family Medical History: Diabetes Mellitus, Hyperlipidemia, Hypertension Mother Family Medical History: CVA/TIA, Diabetes Mellitus, Deep Vein Thrombosis (DVT) Additional Family Medical History / Comment(s): Antiphospholipid antibody syndrome, Lupus, dementia. Multiple DVT's and Strokes. Medications and Allergies Home Medications Medication Instructions Recorded Confirmed Type Levothyroxine Sodium [Synthroid] 100 mcg PO DAILY 01/16/19 04/12/23 History Methenamine Hippurate 1 gm PO BID 07/12/19 04/12/23 History Mirabegron [Myrbetriq] 25 mg PO DAILY 10/08/19 04/12/23 History Fenofibrate [Lofibra] 160 mg PO HS tab 10/17/19 04/12/23 Rx Gabapentin [Neurontin] 400 mg PO TID cap 10/17/19 04/12/23 Rx Rivaroxaban [Xarelto] 20 mg PO HS tab 10/17/19 04/12/23 Rx Promethazine [Phenergan] 25 mg PO TID PRN 11/30/19 04/12/23 History Levothyroxine Sodium [Synthroid] 125 mcg PO MOTUWETH 12/28/19 04/12/23 History Albuterol Inhaler [Ventolin Hfa 2 puff INHALATION RT-Q4H PRN 09/19/20 04/12/23 History Inhaler] Dexlansoprazole [Dexilant] 60 mg PO DAILY 09/19/20 04/12/23 History Galcanezumab-Gnlm [Emgality Pen] 120 mg SQ Q30D 09/19/20 04/12/23 History Cyanocobalamin (Vitamin B-12) 1,000 mcg PO DAILY 06/01/21 04/12/23 History [Vitamin B-12] Ezetimibe [Zetia] 10 mg PO HS 06/01/21 04/12/23 History busPIRone HCL [Buspar] 30 mg PO BID 06/01/21 04/12/23 History Baclofen [Lioresal] 20 mg PO QID 06/02/21 04/12/23 History Fluticasone/Vilanterol [Breo 1 puff INHALATION RT-DAILY 09/27/21 04/12/23 History Ellipta 100-25 Mcg Inhaler] Ondansetron Odt [Zofran ODT] 8 mg PO TID PRN 09/27/21 04/12/23 History polyethylene glycoL 3350 [Miralax] 17 gm PO DAILY 09/27/21 04/12/23 History Fluticasone Nasal [place] [Flonase 1 spr EA NOSTRIL DAILY 04/26/22 04/12/23 History Nasal [place]] [place] Carbonate [[place] 300 mg PO TID 04/26/22 04/12/23 History Carbonate ER] traZODone HCL 200 mg PO HS 04/26/22 04/12/23 History Dicyclomine HCl 20 mg PO Q6H PRN 06/23/22 04/12/23 History Prochlorperazine [Compro] 25 mg RECTAL Q8H PRN 06/23/22 04/12/23 History Rimegepant Sulfate [Nurtec Odt] 75 mg PO DAILY PRN 06/23/22 04/12/23 History cloNIDine HCL [Kapvay] 0.2 mg PO DAILY 06/23/22 04/12/23 History tiZANidine HCL 2 mg PO DAILY PRN 06/23/22 04/12/23 History Dexmethylphenidate HCl 10 mg PO DAILY 10/07/22 04/12/23 History [Dexmethylphenidate HCl ER] HYDROcodone/APAP 7.5-325MG [[place] 1 tab PO Q8H PRN 10/07/22 04/12/23 History 7.5-325] Pioglitazone [Actos] 45 mg PO DAILY 10/07/22 04/12/23 History Semaglutide [Ozempic] 2 mg SQ SA 10/07/22 04/12/23 History cloNIDine HCL [Kapvay] 0.1 mg PO HS 10/07/22 04/12/23 History glipiZIDE 10 mg PO AC-BRKFST 10/07/22 04/12/23 History sitaGLIPtin [Januvia] 100 mg PO DAILY 10/07/22 04/12/23 History Famotidine 40 mg PO HS 11/07/22 04/12/23 History Glycopyrrolate [Robinul] 2 mg PO TID 11/07/22 04/12/23 History Metoprolol Succinate (ER) [Toprol 100 mg PO DAILY 11/07/22 04/12/23 History XL] Phenazopyridine HCl [Uristat Ultra] 99.5 mg PO DAILY PRN 11/07/22 04/12/23 History cloNIDine HCL [Catapres] 0.1 mg PO HS 12/15/22 04/12/23 History diazePAM [Valium] 5 mg PO DAILY PRN 02/18/23 04/12/23 History Meloxicam [Mobic] 15 mg PO DAILY 03/15/23 04/12/23 History modafiniL [Provigil] 400 mg PO DAILY 03/15/23 04/12/23 History Brexpiprazole [Rexulti] 2 mg PO DAILY 04/12/23 04/12/23 History Butalbital/Aspirin/Caffeine 1 tab PO DAILY PRN 04/12/23 04/12/23 History [Vhmjcy-Ggqkhuo-Hguavhju 50-325-40 mg] Cephalexin [Keflex] 500 mg PO Q12HR 04/12/23 04/12/23 History Diclofenac Sodium Gel [Voltaren 4 gm TOPICAL QID PRN 04/12/23 04/12/23 History Gel] Latanoprost [Latanoprost 0.005%] 1 drop BOTH EYES HS 04/12/23 04/12/23 History Sodium Chloride 0.9% Solution 2,000 ml IV DAILY 04/12/23 04/12/23 History Sucralfate [Sucralfate Oral Susp] 1 gm PO ACHS PRN 04/12/23 04/12/23 History Triamcinolone 0.5% Cream [Kenalog 1 applic TOPICAL BID PRN 04/12/23 04/12/23 History 0.5% Cream] Trimethoprim [Trimpex] 100 mg PO DAILY 04/12/23 04/12/23 History Allergies Allergy/AdvReac Type Severity Reaction Status Date / Time peanut oil Allergy Severe Nausea & Verified 04/12/23 21:49 Vomiting,itching barium sulfate Allergy Anaphylaxis Verified 04/12/23 21:49 doxepin [Doxepin] Allergy Anaphylaxis Verified 04/12/23 21:49 ephedrine Allergy Chest Verified 04/12/23 21:49 Pain/tachycardia ertapenem [From Invanz] Allergy Rash/Hives- Verified 04/12/23 21:49 like a chemical burn peanut Allergy Anaphylaxis Verified 04/12/23 21:49 pseudoephedrine Allergy Chest Pain Verified 04/12/23 21:49 Sulfa (Sulfonamide Allergy Nausea & Verified 04/12/23 21:49 Antibiotics) Vomiting, DEHYDRATION sumatriptan [From Imitrex] Allergy affects Verified 04/12/23 21:49 vision-unable to see for hrs. doxycycline AdvReac Nausea & Verified 04/12/23 21:49 Vomiting & Diarrhea pseudoephedrine HCl AdvReac chest Verified 04/12/23 21:49 [From Sudafed] pain/tachycardia sulfamethoxazole AdvReac Nausea & Verified 04/12/23 21:49 [From Bactrim] Vomiting Adhesive Tape AdvReac Rash/Hives Uncoded 03/15/23 11:25 Physical Exam Vitals: Vital Signs Temp Pulse Pulse Resp BP BP Pulse Ox 04/13/23 08:49 20 04/13/23 07:29 100 04/13/23 07:00 98.3 F 76 20 107/71 100 04/13/23 02:16 98.2 F 78 17 133/87 100 04/12/23 23:00 18 04/12/23 22:49 98.5 F 79 17 122/73 99 04/12/23 22:23 72 18 114/80 98 04/12/23 17:52 99 F 96 20 140/93 98 Intake and Output 04/12/23 04/13/23 04/13/23 22:59 06:59 14:59 Other: Voiding Method Toilet Toilet Toilet # Voids 2 Weight 253 kg GENERAL DESCRIPTION: Middle-aged female lying in bed, no distress. No tachypnea or accessory muscle of respiration use. HEENT: Shows Pallor , no scleral icterus. Oral mucous membrane is dry. NECK: Trachea central, no thyromegaly. LUNGS: Unlabored breathing. Clear to auscultation anteriorly. No wheeze or crackle. HEART: S1, S2, regular rate and rhythm. No loud murmur ABDOMEN: Soft, no tenderness , guarding or rigidity, no organomegaly EXTREMITIES: No edema of feet. SKIN: No rash, no masses palpable. Left chest wall Mediport site looks clean NEUROLOGICAL: The patient is awake, alert, oriented x3, mood and affect normal. Results CBC & Chem 7: 04/14/23 06:10 04/14/23 06:10 Labs: Abnormal Lab Results - Last 24 Hours (Table) 04/12/23 04/12/23 04/13/23 Range/Units 19:34 19:34 05:34 RBC 3.73 L 3.51 L (3.80-5.40) m/uL Hgb 10.6 L 10.1 L (11.4-16.0) gm/dL Hct 33.2 L 32.1 L (34.0-46.0) % Chloride 110 H (98-107) mmol/L Carbon Dioxide 20 L (22-30) mmol/L Glucose 104 H (74-99) mg/dL POC Glucose (mg/dL) (70-110) mg/dL Alkaline Phosphatase 33 L (38-126) U/L Total Protein (6.3-8.2) g/dL Albumin (3.5-5.0) g/dL 04/13/23 04/13/23 Range/Units 05:34 07:41 RBC (3.80-5.40) m/uL Hgb (11.4-16.0) gm/dL Hct (34.0-46.0) % Chloride 111 H (98-107) mmol/L Carbon Dioxide 18 L (22-30) mmol/L Glucose 116 H (74-99) mg/dL POC Glucose (mg/dL) 128 H (70-110) mg/dL Alkaline Phosphatase 33 L (38-126) U/L Total Protein 5.5 L (6.3-8.2) g/dL Albumin 3.2 L (3.5-5.0) g/dL Assessment and Plan (1) Fever Current Visit: Yes Status: Acute Code(s): R50.9 - FEVER, UNSPECIFIED SNOMED Code(s): 909921284 Plan: 1patient was in the hospital with fever and patient reported problems with her left chest wall Mediport site at the time of needle change on Tuesday however currently the Mediport site looks clean patient also complaining of some urinary symptoms however the UA is negative chest x-ray was reported negative for acute infiltrate abdominal soft medical examination with a source of fever possibly Mediport site as no other obvious focus of infection at this point. 2patient with multiple antibiotic allergies that would limit the number of antibiotics safe to use 3-we will obtain blood cultures from the Mediport site and check a CRP and a procalcitonin level 4-May continue Rocephin while waiting for the culture to finalize We will follow on clinical condition and cultures to further adjust medication if needed Thank you for this consultation we will follow the patient along with you Time with Patient: Greater than 30
[2023-04-14] MEDS: LEVOTHYROXINE 100 MCG TAB PO SCH (06:30)
[2023-04-14] MEDS: DEXILANT 60 MG PO SCH (06:30)
[2023-04-14] MEDS: INSULIN ASPART (NovoLOG) 100 UNIT/ML VIAL SQ SCH ×4 (06:33→21:01)
[2023-04-14 06:34] LABS: Glucose,Whole Blood 125 mg/dL (70-110)
[2023-04-14] MEDS: LEVOTHYROXINE 125 MCG TAB PO SCH (06:55)
[2023-04-14] MEDS ORDERED: PANTOPRAZOLE 40 MG TABLET PO SCH (07:30)
[2023-04-14] MEDS: busPIRone HCl 10 MG TAB PO SCH ×2 (08:53→20:54)
[2023-04-14] MEDS: PIOGLITAZONE 45 MG TAB PO SCH (08:53)
[2023-04-14] MEDS: CYANOCOBALAMIN 500 MCG TAB PO SCH (08:53)
[2023-04-14] MEDS: FLUTICASONE 50MCG/SPRAY NASAL 16GM EA NOSTRIL SCH (08:53)
[2023-04-14] MEDS: METOPROLOL SUCCINATE (ER) 100 MG TAB.ER.24H PO SCH (08:53)
[2023-04-14] MEDS: MELOXICAM 7.5 MG TAB PO SCH (08:54)
[2023-04-14] MEDS: GABAPENTIN 400 MG CAP PO SCH ×3 (08:54→20:55)
[2023-04-14] MEDS: GLYCOPYRROLATE 1 MG TAB PO SCH ×3 (08:54→20:55)
[2023-04-14] MEDS: glipiZIDE 10 MG TAB PO SCH (08:54)
[2023-04-14] MEDS: BACLOFEN 10 MG TAB PO SCH ×4 (08:55→20:55)
[2023-04-14] MEDS: CLONIDINE HCL 0.1 MG PO SCH ×2 (08:56→20:57)
[2023-04-14] MEDS: LITHIUM CARBONATE 300 MG PO SCH ×3 (08:56→20:59)
[2023-04-14] MEDS: JANUVIA 100 MG PO SCH (08:57)
[2023-04-14] MEDS: PATIENT'S OWN (Mirabegron [Myrbetriq] 25 MG Tab.Er.24h) PO SCH (08:59)
[2023-04-14] MEDS ORDERED: NON FORMULARY DRUG (Mirabegron [Myrbetriq] 25 MG Tab.Er.24h) PO SCH (09:00)
[2023-04-14] MEDS ORDERED: LINAGLIPTIN 5 MG TABLET PO SCH (09:00)
[2023-04-14] MEDS ORDERED: NON FORMULARY DRUG (Brexpiprazole [Rexulti] 2 MG Tablet) PO SCH (09:00)
[2023-04-14] MEDS ORDERED: DEXMETHYLPHENIDATE HCL 10 MG PO SCH (09:00)
[2023-04-14] MEDS ORDERED: NON FORMULARY DRUG (Clonidine Hcl [Kapvay] 0.1 MG Tab.Er.12h) PO SCH (09:00)
[2023-04-14] MEDS ORDERED: SODIUM CHLORIDE 0.9% IV SCH (09:00)
[2023-04-14] MEDS: SYMBICORT 80-4.5 MCG INHALER INHALATION SCH ×2 (09:05→21:10)
[2023-04-14] MEDS: polyethylene glycoL 3350 17 GM POWD.PACK PO SCH (10:14)
[2023-04-14] MEDS: DEXMETHYLPHENIDATE HCL 10 MG PO SCH (10:14)
[2023-04-14] MEDS: NON FORMULARY DRUG (Methenamine Hippurate [Methenamine Hippurate] 1 GM Tablet) PO SCH ×2 (10:15→21:02)
[2023-04-14 10:50] LABS: Basophils # (A) 0.04 X 10*3/uL (0.00-0.10); Basophils % (A) 0.6 %; Eosinophils # (A) 0.19 X 10*3/uL (0.04-0.35); HCT 32.8 % (37.2-46.3); HGB 9.9 g/dL (12.0-15.0); Immature Grans, Automated 0.5 %; Lymphocytes # (A) 1.73 X 10*3/uL (0.90-5.00); MCH 28.7 pg (27.0-32.0); MCHC 30.2 g/dL (32.0-37.0); MCV 95.1 fL (80.0-97.0); Monocytes # (A) 0.53 X 10*3/uL (0.20-1.00); Monocytes % (A) 8.3 %; NRBC Per 100 WBC 0 /100 WBCS (0.0-0.0); Neutrophils # (A) 3.88 X 10*3/uL (1.80-7.70); Neutrophils % (A) 60.6 %; Platelet Count 283 X 10*3/uL (140-440); RBC 3.45 X 10*6/uL (4.10-5.20); RDW 14.5 % (11.5-14.5)
[2023-04-14 11:10] LABS: Anion Gap 8.7 mmol/L (10.00-18.00); BUN/Creat Ratio 9.84 Ratio (12.00-20.00); Blood Urea Nitrogen 8.6 mg/dL (9.0-27.0); Calcium 9.4 mg/dL (8.7-10.3); Carbon Dioxide 21.5 mmol/L (20.0-27.5); Non-African American GFR(CKD) 82.9 (60.0-200.0); Potassium 4.3 mmol/L (3.5-5.5)
[2023-04-14] MEDS: HYDROcodone/APAP 7.5-325MG 1 EACH TAB PO PRN (11:49)
[2023-04-14 11:51] LABS: Glucose,Whole Blood 108 mg/dL (70-110)
[2023-04-14] MEDS: SODIUM CHLORIDE 0.9% 1,000 ML IV SCH (13:44)
--- NOTE | 2023-04-14 13:57 | P.PN ---
Subjective Progress Note Date: 04/14/23 Principal diagnosis: Fever Patient is a 42-year-old female with a past medical history significant for asthma diabetes mellitus DVT reflux hypertension hyperlipidemia patient did have a mitochondrial disorder and to require hydration on the regular basis for the patient did have multiple lines related infection, currently she does have left chest wall Mediport , admitted to the hospital with fever concerning for possible port site infection versus UTI as the patient was also having some urinary symptoms and was an outpatient oral Keflex. On today's evaluation that is 04/14/2023, the patient denies having any further fever or any chills patient currently breathing comfortably on room air no chest pain or shortness of breath or cough some nausea but no vomiting no abdominal pain no diarrhea urinary symptoms has improved Objective - Vital Signs Vital signs: Vital Signs Temp 98.5 F 04/14/23 06:55 Pulse 65 04/14/23 08:00 Resp 18 04/14/23 08:00 BP 106/68 04/14/23 06:55 Pulse Ox 98 04/14/23 06:55 FiO2 Intake & Output 04/13/23 04/14/23 04/14/23 18:59 06:59 18:59 Intake Total 244 118 Output Total 800 Balance -556 118 Intake: Oral 244 118 Output: Urine 800 Other: Voiding Method Toilet Bedside Commode Bedside Commode # Voids 2 - Exam GENERAL DESCRIPTION: Middle-age female lying in bed in no distress RESPIRATORY SYSTEM: Unlabored breathing , decreased breath sounds at bases HEART: S1 S2 regular rate and rhythm , ABDOMEN: Soft , no tenderness EXTREMITIES: No edema feet - Labs CBC & Chem 7: 04/14/23 06:10 04/14/23 06:10 Labs: Abnormal Lab Results - Last 24 Hours (Table) 04/13/23 04/13/23 04/13/23 Range/Units 05:30 12:31 20:39 RBC (4.10-5.20) X 10*6/uL Hgb (12.0-15.0) g/dL Hct (37.2-46.3) % MCHC (32.0-37.0) g/dL Chloride (96-109) mmol/L Anion Gap (10.00-18.00) mmol/L BUN (9.0-27.0) mg/dL BUN/Creatinine Ratio (12.00-20.00) Ratio Glucose (70-110) mg/dL POC Glucose (mg/dL) 118 H 155 H (70-110) mg/dL C-Reactive Protein 1.2 H (<1.0) mg/dL 04/14/23 04/14/23 04/14/23 Range/Units 06:10 06:10 06:33 RBC 3.45 L (4.10-5.20) X 10*6/uL Hgb 9.9 L (12.0-15.0) g/dL Hct 32.8 L (37.2-46.3) % MCHC 30.2 L (32.0-37.0) g/dL Chloride 110 H (96-109) mmol/L Anion Gap 8.70 L (10.00-18.00) mmol/L BUN 8.6 L (9.0-27.0) mg/dL BUN/Creatinine Ratio 9.84 L (12.00-20.00) Ratio Glucose 115 H (70-110) mg/dL POC Glucose (mg/dL) 125 H (70-110) mg/dL C-Reactive Protein (<1.0) mg/dL Microbiology - Last 24 Hours (Table) 04/12/23 19:34 Blood Culture - Preliminary Blood 04/12/23 19:34 Blood Culture - Preliminary Blood 04/13/23 15:10 Urine Culture - Preliminary Urine,Clean Catch Assessment and Plan (1) Fever Current Visit: Yes Status: Acute Code(s): R50.9 - FEVER, UNSPECIFIED SNOMED Code(s): 517333068 Plan: 1patient was in the hospital with fever and patient reported problems with her left chest wall Mediport site at the time of needle change on Tuesday however currently the Mediport site looks clean patient also complaining of some urinary symptoms however the UA is negative chest x-ray was reported negative for acute infiltrate abdominal soft medical examination with a source of fever possibly Mediport site as no other obvious focus of infection at this point. 2patient with multiple antibiotic allergies that would limit the number of antibiotics safe to use 3-blood cultures from the Mediport site which is currently pending, CRP and a procalcitonin level pending as well 4Patient to continue Rocephin while waiting for the culture to finalize Time with Patient: Less than 30
[2023-04-14 17:33] LABS: Glucose,Whole Blood 134 mg/dL (70-110)
[2023-04-14 19:59] LABS: Glucose,Whole Blood 156 mg/dL (70-110)
[2023-04-14] MEDS: traZODone HCL 100 MG TAB PO SCH (20:54)
[2023-04-14] MEDS: EZETIMIBE 10 MG TAB PO SCH (20:54)
[2023-04-14] MEDS: FENOFIBRATE 160 MG TAB PO SCH (20:54)
[2023-04-14] MEDS: FAMOTIDINE 20 MG TAB PO SCH (20:54)
[2023-04-14] MEDS: RIVAROXABAN 20 MG TAB PO SCH (20:55)
[2023-04-14] MEDS: PATIENT'S OWN (Brexpiprazole [Rexulti] 2 MG Tablet) PO SCH (20:59)
[2023-04-14] MEDS: LATANOPROST 0.005% OPHTH DROPS 2.5 ML BTL BOTH EYES SCH (21:02)
[2023-04-14] MEDS: cloNIDine HCL 0.1 MG TAB PO SCH (21:04)
--- NOTE | 2023-04-14 22:30 | PN ---
PROGRESS NOTE DATE OF SERVICE: 04/14/2023 SUBJECTIVE: This is a 42-year-old woman who was admitted with fever, had multiple history of asthma and multiple complex medical issues, also. Currently, the cultures are negative and the patient had history of MRSA and ESBL infections also. The patient is empirically on Rocephin at this time. Procalcitonin is normal. CRP is 1.2. Dr. Llanes is following the patient closely. A port site infection is also concerned. PAST MEDICAL HISTORY: Reviewed. REVIEW OF SYSTEMS: A 14-point review of systems is negative except as mentioned earlier. PHYSICAL EXAMINATION: VITAL SIGNS: Pulse is 87, blood pressure 133/70, respirations 18. HEENT: Conjunctivae normal. NECK: No jugular venous distention. CARDIOVASCULAR: S1 and S2. RESPIRATIONS: Breath sounds diminished at the bases. ABDOMEN: Soft, nontender. LEGS: No edema. NERVOUS SYSTEM: No focal deficits. LABORATORY DATA: Labs are reviewed. ASSESSMENT: 1. Fever for further evaluation, rule out sepsis, MediPort infection/urinary tract infection. 2. Asthma. 3. Diabetes mellitus, type 2. 4. History of ESBL and MRSA. 5. Immunosuppressed. 6. Multiple complex medical issues. RECOMMENDATIONS: This is a 42-year-old woman who presented with multiple complex medical issues. I would recommend to keep the patient in the hospital for more than 2 nights. The patient will require a full admit because of the above-mentioned reasons as mentioned earlier. The patient wanted empiric antibiotics, the patient has a high suspicion for sepsis. The patient is not febrile, but because the patient reports to me that she is taking Tylenol as well as [place] probably around the clock, so because of that reason, I would definitely await for the final culture report because of the patient's past history and complex medical issues and obviously heavily immunosuppressed individual, so this patient requires a full admit. As mentioned earlier, we will follow the patient closely with Dr. Llanes. We will monitor the port site and the cultures very closely and further recommendations to follow. Once the patient is stable, the patient will be discharged but not today. Prognosis guarded. MMODL / IJN: [id number] /
[2023-04-15] MEDS: SODIUM CHLORIDE 0.9% 1,000 ML IV SCH (01:42)
[2023-04-15 05:04] LABS: Glucose,Whole Blood 110 mg/dL (70-110)
[2023-04-15] MEDS: INSULIN ASPART (NovoLOG) 100 UNIT/ML VIAL SQ SCH ×2 (06:01→12:39)
[2023-04-15] MEDS: LEVOTHYROXINE 100 MCG TAB PO SCH (06:04)
[2023-04-15] MEDS: SUCRALFATE 1 GM TAB PO PRN (06:04)
[2023-04-15] MEDS: DEXILANT 60 MG PO SCH (06:05)
[2023-04-15] MEDS: ONDANSETRON ODT 8 MG TAB.RAPDIS PO PRN (06:29)
[2023-04-15 08:08] VITALS: BP 94/57; PULSE 73; RESP 16; TEMP 98.2
[2023-04-15] MEDS: SYMBICORT 80-4.5 MCG INHALER INHALATION SCH (08:52)
[2023-04-15] MEDS: MELOXICAM 7.5 MG TAB PO SCH (09:22)
[2023-04-15] MEDS: CYANOCOBALAMIN 500 MCG TAB PO SCH (09:22)
[2023-04-15] MEDS: BACLOFEN 10 MG TAB PO SCH ×2 (09:22→12:49)
[2023-04-15] MEDS: busPIRone HCl 10 MG TAB PO SCH (09:23)
[2023-04-15] MEDS: glipiZIDE 10 MG TAB PO SCH (09:24)
[2023-04-15] MEDS: GLYCOPYRROLATE 1 MG TAB PO SCH (09:24)
[2023-04-15] MEDS: METOPROLOL SUCCINATE (ER) 100 MG TAB.ER.24H PO SCH (09:24)
[2023-04-15] MEDS: PIOGLITAZONE 45 MG TAB PO SCH (09:24)
[2023-04-15] MEDS: FLUTICASONE 50MCG/SPRAY NASAL 16GM EA NOSTRIL SCH (09:25)
[2023-04-15] MEDS: polyethylene glycoL 3350 17 GM POWD.PACK PO SCH (09:26)
[2023-04-15] MEDS: GABAPENTIN 400 MG CAP PO SCH (09:27)
[2023-04-15] MEDS: CLONIDINE HCL 0.1 MG PO SCH (09:28)
[2023-04-15] MEDS: JANUVIA 100 MG PO SCH (09:28)
[2023-04-15] MEDS: PATIENT'S OWN (Mirabegron [Myrbetriq] 25 MG Tab.Er.24h) PO SCH (09:29)
[2023-04-15] MEDS: LITHIUM CARBONATE 300 MG PO SCH (09:29)
[2023-04-15] MEDS: NON FORMULARY DRUG (Methenamine Hippurate [Methenamine Hippurate] 1 GM Tablet) PO SCH (09:31)
[2023-04-15] MEDS: DEXMETHYLPHENIDATE HCL 10 MG PO SCH (10:21)
[2023-04-15 12:09] LABS: Glucose,Whole Blood 137 mg/dL (70-110)
--- NOTE | 2023-04-15 12:23 | P.PN ---
Subjective Progress Note Date: 04/15/23 Principal diagnosis: Fever Patient is a 42-year-old female with a past medical history significant for asthma diabetes mellitus DVT reflux hypertension hyperlipidemia patient did have a mitochondrial disorder and to require hydration on the regular basis for the patient did have multiple lines related infection, currently she does have left chest wall Mediport , admitted to the hospital with fever concerning for possible port site infection versus UTI as the patient was also having some urinary symptoms and was an outpatient oral Keflex. On today's evaluation that is 04/15/2023, the patient remains to be afebrile, patient is breathing comfortably on room air , the patient denies chest pain or shortness of breath or cough some nausea but no vomiting no abdominal pain no diarrhea urinary symptoms has improved Objective - Vital Signs Vital signs: Vital Signs Temp 98.2 F 04/15/23 07:30 Pulse 73 04/15/23 07:30 Resp 16 04/15/23 07:30 BP 94/57 04/15/23 07:30 Pulse Ox 98 04/15/23 07:30 FiO2 Intake & Output 04/14/23 04/15/23 04/15/23 18:59 06:59 18:59 Intake Total 118 240 Balance 118 240 Intake: Oral 118 240 Other: Voiding Method Bedside Commode # Voids 3 1 - Exam GENERAL DESCRIPTION: Middle-age female lying in bed in no distress RESPIRATORY SYSTEM: Unlabored breathing , decreased breath sounds at bases HEART: S1 S2 regular rate and rhythm , ABDOMEN: Soft , no tenderness EXTREMITIES: No edema feet - Labs CBC & Chem 7: 04/14/23 06:10 04/14/23 06:10 Labs: Abnormal Lab Results - Last 24 Hours (Table) 04/14/23 04/14/23 Range/Units 17:32 19:57 POC Glucose (mg/dL) 134 H 156 H (70-110) mg/dL Microbiology - Last 24 Hours (Table) 04/13/23 14:10 Blood Culture - Preliminary Blood 04/12/23 19:34 Blood Culture - Preliminary Blood 04/12/23 19:34 Blood Culture - Preliminary Blood Assessment and Plan (1) Fever Current Visit: Yes Status: Acute Code(s): R50.9 - FEVER, UNSPECIFIED SNOMED Code(s): 207924306 Plan: 1patient was in the hospital with fever and patient reported problems with her left chest wall Mediport site at the time of needle change on Tuesday however currently the Mediport site looks clean patient also complaining of some urinary symptoms however the UA is negative chest x-ray was reported negative for acute infiltrate abdominal soft medical examination with a source of fever possibly Mediport site as no other obvious focus of infection at this point. 2patient with multiple antibiotic allergies that would limit the number of antibiotics safe to use 3-blood cultures from the Mediport site has been negative, CRP 1.2 and a procalcitonin level is normal at 0.06 4Patient did not have any fever during this hospital stay and culture had been negative clinic suspicious low for infection, antibiotic can be safely discontinued and no need for any antibiotic on discharge Time with Patient: Less than 30
[2023-04-16] MEDS ORDERED: NON FORMULARY DRUG (Semaglutide [Ozempic] 2 MG/0.75 ML Pen.Injctr) SQ SCH (09:00)
== END 2023-04-15 14:03 | disposition home health service (06) | DRG 864 ==
LOC: EC 17:47 → 6NMEDSUR 21:04 → OBSVTOIN 04-14 10:30
PROVIDERS: ADMIT Internal Medicine; ATTEND Internal Medicine
DX: R50.9 Fever, unspecified (principal); D84.9 Immunodeficiency, unspecified; D68.62 Lupus anticoagulant syndrome; E88.40 Mitochondrial metabolism disorder, unspecified; Q21.12 Patent foramen ovale; F84.0 Autistic disorder; G43.409 Hemiplegic migraine, not intractable, without status migrainosus; E11.40 Type 2 diabetes mellitus with diabetic neuropathy, unspecified; G90.1 Familial dysautonomia [Riley-Day]; E78.5 Hyperlipidemia, unspecified; D35.2 Benign neoplasm of pituitary gland; F31.9 Bipolar disorder, unspecified; Z20.822 Contact with and (suspected) exposure to COVID-19; J45.909 Unspecified asthma, uncomplicated; E06.3 Autoimmune thyroiditis; I10 Essential (primary) hypertension; D51.0 Vitamin B12 deficiency anemia due to intrinsic factor deficiency; G47.419 Narcolepsy without cataplexy; K76.9 Liver disease, unspecified; F41.9 Anxiety disorder, unspecified; K21.9 Gastro-esophageal reflux disease without esophagitis; E28.2 Polycystic ovarian syndrome; G93.2 Benign intracranial hypertension; H91.93 Unspecified hearing loss, bilateral; F43.10 Post-traumatic stress disorder, unspecified; G47.30 Sleep apnea, unspecified; Z79.01 Long term (current) use of anticoagulants; Z79.1 Long term (current) use of non-steroidal anti-inflammatories (NSAID); Z79.84 Long term (current) use of oral hypoglycemic drugs; Z79.890 Hormone replacement therapy; Z79.899 Other long term (current) drug therapy; Z79.51 Long term (current) use of inhaled steroids; Z79.85 Long-term (current) use of injectable non-insulin antidiabetic drugs; Z95.828 Presence of other vascular implants and grafts; Z99.3 Dependence on wheelchair; Z86.19 Personal history of other infectious and parasitic diseases; Z86.73 Personal history of transient ischemic attack (TIA), and cerebral infarction without residual deficits; Z86.718 Personal history of other venous thrombosis and embolism; Z87.440 Personal history of urinary (tract) infections; Z88.2 Allergy status to sulfonamides; Z91.010 Allergy to peanuts; Z88.1 Allergy status to other antibiotic agents; Z88.8 Allergy status to other drugs, medicaments and biological substances
CPT/HCPCS: 36415; 71046; 80048; 80053; 81003; 83036; 83605; 84145; 85025; 85610; 85730; 86140; 87040; 87086; 87636; 93005; 94640; 94760; 96365; 99285

== ENCOUNTER 2023-06-13 12:07 | Inpatient (IN) | payer MEDICARE, OTHER ==
--- NOTE | 2023-06-13 12:57 | ED ---
General Adult HPI - General Chief complaint: Fever Stated complaint: Possible port infection Time Seen by Provider: 06/13/23 12:27 Source: patient Mode of arrival: wheelchair - History of Present Illness Initial comments: Dictation was produced using [employer] dictation software. please excuse any grammatical, word or spelling errors. Chief Complaint: 42-year-old female with past medical history mitochondrial disease presents with fever History of Present Illness: Patient is a 42-year-old female she has history mitochondrial disease she has indwelling port in her left chest. She gets continuous infusions to treat her mitochondrial illness. Patient states over the last 2 days she's been developing fever. She had pain along her port site recently. She states that there was some pus drainage that came from her port site yesterday. She had his been treated with high-dose Keflex for presumed urinary tract infection. Patient complaining of fever and chills. Denies any cough. No sore throat or runny nose. No abdominal pain. No urinary symptoms at this time. Patient has had bacteremia in the past. The ROS documented in this emergency department record has been reviewed and confirmed by me. Those systems with pertinent positive or negative responses have been documented in the HPI. All other systems are other negative and/or noncontributory. - Related Data Home Medications Medication Instructions Recorded Confirmed Levothyroxine Sodium [Synthroid] 100 mcg PO DAILY 01/16/19 06/13/23 Methenamine Hippurate 1 gm PO BID 07/12/19 06/13/23 Mirabegron [Myrbetriq] 25 mg PO DAILY 10/08/19 06/13/23 Promethazine [Phenergan] 25 mg PO TID PRN 11/30/19 06/13/23 Levothyroxine Sodium [Synthroid] 125 mcg PO MOTUWETH 12/28/19 06/13/23 Albuterol Inhaler [Ventolin Hfa 2 puff INHALATION RT-Q4H PRN 09/19/20 06/13/23 Inhaler] Dexlansoprazole [Dexilant] 60 mg PO DAILY 09/19/20 06/13/23 Galcanezumab-Gnlm [Emgality Pen] 120 mg SQ Q30D 09/19/20 06/13/23 Cyanocobalamin (Vitamin B-12) 1,000 mcg PO DAILY 06/01/21 06/13/23 [Vitamin B-12] Ezetimibe [Zetia] 10 mg PO HS 06/01/21 06/13/23 busPIRone HCL [Buspar] 30 mg PO BID 06/01/21 06/13/23 Baclofen [Lioresal] 20 mg PO QID 06/02/21 06/13/23 Fluticasone/Vilanterol [Breo 1 puff INHALATION RT-DAILY 09/27/21 06/13/23 Ellipta 100-25 Mcg Inhaler] Ondansetron Odt [Zofran ODT] 8 mg PO TID PRN 09/27/21 06/13/23 polyethylene glycoL 3350 [Miralax] 17 gm PO DAILY 09/27/21 06/13/23 Fluticasone Nasal [place] [Flonase 1 spr EA NOSTRIL DAILY 04/26/22 06/13/23 Nasal [place]] [place] Carbonate [[place] 300 mg PO TID 04/26/22 06/13/23 Carbonate ER] traZODone HCL 200 mg PO HS 04/26/22 06/13/23 Dicyclomine HCl 20 mg PO Q6H PRN 06/23/22 06/13/23 Prochlorperazine [Compro] 25 mg RECTAL Q8H PRN 06/23/22 06/13/23 Rimegepant Sulfate [Nurtec Odt] 75 mg PO DAILY PRN 06/23/22 06/13/23 cloNIDine HCL [Kapvay] 0.2 mg PO DAILY 06/23/22 06/13/23 tiZANidine HCL 2 mg PO DAILY PRN 06/23/22 06/13/23 HYDROcodone/APAP 7.5-325MG [[place] 1 tab PO Q8H PRN 10/07/22 06/13/23 7.5-325] Pioglitazone [Actos] 45 mg PO DAILY 10/07/22 06/13/23 Semaglutide [Ozempic] 2 mg SQ SA 10/07/22 06/13/23 cloNIDine HCL [Kapvay] 0.1 mg PO HS 10/07/22 06/13/23 glipiZIDE 10 mg PO AC-BRKFST 10/07/22 06/13/23 sitaGLIPtin [Januvia] 100 mg PO DAILY 10/07/22 06/13/23 Famotidine 40 mg PO HS 11/07/22 06/13/23 Metoprolol Succinate (ER) [Toprol 100 mg PO DAILY 11/07/22 06/13/23 XL] Phenazopyridine HCl [Uristat Ultra] 99.5 mg PO DAILY PRN 11/07/22 06/13/23 cloNIDine HCL [Catapres] 0.1 mg PO HS 12/15/22 06/13/23 diazePAM [Valium] 5 mg PO DAILY PRN 02/18/23 06/13/23 Meloxicam [Mobic] 15 mg PO DAILY 03/15/23 06/13/23 modafiniL [Provigil] 400 mg PO DAILY 03/15/23 06/13/23 Brexpiprazole [Rexulti] 2 mg PO HS 04/12/23 06/13/23 Butalbital/Aspirin/Caffeine 1 tab PO DAILY PRN 04/12/23 06/13/23 [Vliytx-Omjnzuy-Dznamign 50-325-40 mg] Diclofenac Sodium Gel [Voltaren 4 gm TOPICAL QID PRN 04/12/23 06/13/23 Gel] Latanoprost [Latanoprost 0.005%] 1 drop BOTH EYES HS 04/12/23 06/13/23 Sodium Chloride 0.9% Solution 2,000 ml IV DAILY 04/12/23 06/13/23 Triamcinolone 0.5% Cream [Kenalog 1 applic TOPICAL BID PRN 04/12/23 06/13/23 0.5% Cream] Trimethoprim [Trimpex] 100 mg PO DAILY 04/12/23 06/13/23 Brexpiprazole [Rexulti] 1 mg PO DAILY 06/13/23 06/13/23 Cephalexin [Keflex] 500 mg PO QID 06/13/23 06/13/23 Dexmethylphenidate HCl [Focalin Xr] 20 mg PO DAILY 06/13/23 06/13/23 Gabapentin [Neurontin] 400 mg PO QID 06/13/23 06/13/23 Lactulose 10 - 20 gm PO BID PRN 06/13/23 06/13/23 Sucralfate [Carafate] 1 gm PO TID-W/MEALS 06/13/23 06/13/23 Previous Rx's Medication Instructions Recorded Fenofibrate [Lofibra] 160 mg PO HS tab 10/17/19 Rivaroxaban [Xarelto] 20 mg PO HS tab 10/17/19 Allergies Allergy/AdvReac Type Severity Reaction Status Date / Time peanut oil Allergy Severe Nausea & Verified 06/13/23 13:27 Vomiting,itching barium sulfate Allergy Anaphylaxis Verified 06/13/23 13:27 doxepin [Doxepin] Allergy Anaphylaxis Verified 06/13/23 13:27 ephedrine Allergy Chest Verified 06/13/23 13:27 Pain/tachycardia ertapenem [From Invanz] Allergy Rash/Hives- Verified 06/13/23 13:27 like a chemical burn peanut Allergy Anaphylaxis Verified 06/13/23 13:27 pseudoephedrine Allergy Chest Pain Verified 06/13/23 13:27 Sulfa (Sulfonamide Allergy Nausea & Verified 06/13/23 13:27 Antibiotics) Vomiting, DEHYDRATION sumatriptan [From Imitrex] Allergy affects Verified 06/13/23 13:27 vision-unable to see for hrs. doxycycline AdvReac Nausea & Verified 06/13/23 13:27 Vomiting & Diarrhea pseudoephedrine HCl AdvReac chest Verified 06/13/23 13:27 [From Sudafed] pain/tachycardia sulfamethoxazole AdvReac Nausea & Verified 06/13/23 13:27 [From Bactrim] Vomiting Adhesive Tape AdvReac Rash/Hives Uncoded 06/13/23 12:20 Review of Systems ROS Statement: Those systems with pertinent positive or pertinent negative responses have been documented in the HPI. ROS Other: All systems not noted in ROS Statement are negative. 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 Lymphedema left arm due to DVTs, avoid use of left arm for BP, IV, blood draws. Hx Vtach, pituitary microadenoma, patent foramen ovale, narcolepsy, gastropareis, hx orthostatic hypotension/syncope, migraines with hemiplegia, pernicious anemia, polycystic ovarian syndrome, neuropathy bilateral legs/feet/arms, uses wheelchair, able to transfer and walk few steps. CPAP use. Lupus anticoagulation syndrome. Enlarged liver. History of Any Multi-Drug Resistant Organisms: ESBL, MRSA Date of last positivie culture/infection: 12/20/22 ESBL E.coli; 03/09/17 MRSA MDRO Source:: Urine-ESBL; Left Arm-MRSA Past Surgical History: Cholecystectomy, Uterine Ablation Additional Past Surgical History / Comment(s): Colonscopy/EGD, GERSON, PORT-A-CATH INSERTION X3, PICC line insertion and later removed. Past Anesthesia/Blood Transfusion Reactions: Previous Problems w/ Anesthesia, Motion Sickness Additional Past Anesthesia/Blood Transfusion Reaction / Comment(s): Patient states difficult to sedate. Hx blood transfusions with no issues. Past Psychological History: Anxiety, Bipolar, Depression, PTSD Smoking Status: Never smoker Past Alcohol Use History: Rare Past Drug Use History: None Reported - Past Family History Brother(s) Family Medical History: Diabetes Mellitus, Hyperlipidemia, Hypertension Additional Family Medical History / Comment(s): Patient states she has 1 brother with no major medical problems. Father History Unknown: Yes Family Medical History: Diabetes Mellitus, Hyperlipidemia, Hypertension Mother Family Medical History: CVA/TIA, Diabetes Mellitus, Deep Vein Thrombosis (DVT) Additional Family Medical History / Comment(s): Antiphospholipid antibody syndrome, Lupus, dementia. Multiple DVT's and Strokes. General Exam - General Exam Comments Initial Comments: PHYSICAL EXAM: General Impression: Alert and oriented x3, not in acute distress HEENT: Normocephalic atraumatic, extra-ocular movements intact, pupils equal and reactive to light bilaterally, mucous membranes moist. Cardiovascular: Heart regular rate and rhythm Chest: Able to complete full sentences, no retractions, no tachypnea Abdomen: abdomen soft, non-tender, non-distended, no organomegaly Musculoskeletal: Pulses present and equal in all extremities, no peripheral edema Motor: no focal deficits noted Neurological: CN II-XII grossly intact, no focal motor or sensory deficits noted Skin: Intact with no visualized rashes Psych: Normal affect and mood Course Vital Signs 06/13/23 12:14 Temperature 100.1 F H Pulse Rate 86 Respiratory 18 Rate Blood Pressure 113/83 O2 Sat by Pulse 97 Oximetry Medical Decision Making - Medical Decision Making Was pt. sent in by a medical professional or institution (PERFECTO Romero, PAPER CUP HANDLE MACHINE OPERATOR, urgent care, hospital, or longterm...) When possible be specific @ -No Did you speak to anyone other than the patient for history (EMS, parent, family, police, friend...)? What history was obtained from this source @ -No Did you review nursing and triage notes (agree or disagree)? Why? @ -I reviewed and agree with nursing and triage notes Were old charts reviewed (outside hosp., previous admission, EMS record, old EKG, old radiological studies, urgent care reports/EKG's, longterm records)? Report findings @ -No old charts were reviewed Differential Diagnosis (chest pain, altered mental status, abdominal pain women, abdominal pain men, vaginal bleeding, musculoskeletal, weakness, fever, dyspnea, syncope, headache, dizziness, GI bleed, back pain, seizure, CVA, palpatations, mental health)? @ -Differential Fever: Pneumonia, viral URI, endocarditis, myocarditis, pericarditis, otitis, sinusitis, peritonsillar Abscess, retropharyngeal Abscess, epiglottitis, peritonitis, appendicitis, [place] cystitis, diverticulitis, hepatitis, colitis, UTI, PID, TOA, pyelonephritis, prostatitis, epididymitis, meningitis, en cephalitis, pulmonary embolism, CVA, thyroid storm, pancreatitis, adrenal crisis, cavernous sinus thrombosis, this is not meant to be an all-inclusive list. EKG interpreted by me (3pts min.). @ -None done X-rays interpreted by me (1pt min.). @ -Chest x-ray is nonacute CT interpreted by me (1pt min.). @ -None done U/S interpreted by me (1pt. min.). @ -None done What testing was considered but not performed or refused? (CT, X-rays, U/S, labs)? Why? @ -None What meds were considered but not given or refused? Why? @ -None Did you discuss the management of the patient with other professionals (professionals i.e. PERFECTO Romero, PAPER CUP HANDLE MACHINE OPERATOR, lab, RT, psych nurse, social and human services assistant, hand sprayer, teacher, licensed loan officer assistant, case managers)? Give summary @ -Case discussed with hospitalist for admission Was smoking cessation discussed for >3mins.? @ -No Was critical care preformed (if so, how long)? @ -No Were there social determinants of health that impacted care today? How? (Homelessness, low income, unemployed, alcoholism, drug addiction, tr ansportation, low edu. Level, literacy, decrease access to med. care, long term, rehab)? @ -No Was there de-escalation of care discussed even if they declined (Discuss DNR or withdrawal of care, Hospice)? DNR status @ -No What co-morbidities impacted this encounter? (DM, HTN, Smoking, COPD, CAD, Cancer, CVA, ARF, Chemo, Hep., AIDS, mental health diagnosis, sleep apnea, morbid obesity)? @ -None Was patient admitted / discharged? Hospital course, mention meds given and route, prescriptions, significant lab abnormalities, going to OR and other pertinent info. @ -42 y Old female past medical history of mitochondral disease presents to the emergency department for fevers. Patient has history of bacteremia. She has indwelling Port-A-Cath. Vital signs upon arrival shows low-grade temperature 100.1. Patient does have constitutional symptoms. Laboratory evaluation obtained. CBC, metabolic panel unremarkable. Urinalysis negative. Vital testing is negative. Chest x-ray nonacute. Patient be admitted observation for medical monitoring and infectious disease consultation. Undiagnosed new problem with uncertain prognosis? @ -No Drug Therapy requiring intensive monitoring for toxicity (Heparin, Nitro, Insulin, Cardizem)? @ -No Were any procedures done? @ -No Diagnosis/symptom? Acute, or Chronic, or Acute on Chronic? Uncomplicated (without systemic symptoms) or Complicated (systemic symptoms)? @ -1. Constitutional symptoms Side effects of treatment? @ -No Exacerbation, Progression, or Severe Exacerbation? @ -No Poses a threat to life or bodily function? How? (Chest pain, [place], [place], pneumonia, PE, COPD, DKA, ARF, appy, cholecystitis, CVA, Diverticulitis, Homicidal, Suicidal, threat to staff... and all critical care pts) @ -yes - Lab Data Result diagrams: 06/13/23 13:34 06/13/23 13:34 Lab Results 06/13/23 06/13/23 06/13/23 Range/Units 13:34 13:34 13:34 WBC 10.3 (3.8-10.6) k/uL RBC 3.76 L (3.80-5.40) m/uL Hgb 11.3 L (11.4-16.0) gm/dL Hct 35.5 (34.0-46.0) % MCV 94.2 (80.0-100.0) fL MCH 30.0 (25.0-35.0) pg MCHC 31.9 (31.0-37.0) g/dL RDW 14.0 (11.5-15.5) % Plt Count 345 (150-450) k/uL MPV 7.7 Neutrophils % 78 % Lymphocytes % 14 % Monocytes % 6 % Eosinophils % 2 % Basophils % 0 % Neutrophils # 8.0 H (1.3-7.7) k/uL Lymphocytes # 1.4 (1.0-4.8) k/uL Monocytes # 0.6 (0-1.0) k/uL Eosinophils # 0.2 (0-0.7) k/uL Basophils # 0.0 (0-0.2) k/uL Sodium 135 L (137-145) mmol/L Potassium 4.4 (3.5-5.1) mmol/L Chloride 107 (98-107) mmol/L Carbon Dioxide 19 L (22-30) mmol/L Anion Gap 9 mmol/L BUN 16 (7-17) mg/dL Creatinine 0.73 (0.52-1.04) mg/dL Est GFR (CKD-EPI)AfAm >90 (>60 ml/min/1.73 sqM) Est GFR (CKD-EPI)NonAf >90 (>60 ml/min/1.73 sqM) Glucose 154 H (74-99) mg/dL Plasma Lactic Acid Joce (0.7-2.0) mmol/L Calcium 9.5 (8.4-10.2) mg/dL C-Reactive Protein 0.9 (<1.0) mg/dL Urine Color Yellow Urine Appearance Clear (Clear) Urine pH 6.5 (5.0-8.0) Ur Specific [place] 1.022 (1.001-1.035) Urine Protein Negative (Negative) Urine Glucose (UA) Negative (Negative) Urine Ketones Negative (Negative) Urine Blood Negative (Negative) Urine Nitrite Negative (Negative) Urine Bilirubin Negative (Negative) Urine Urobilinogen <2.0 (<2.0) mg/dL Ur Leukocyte Esterase Trace H (Negative) Urine RBC 1 (0-5) /hpf Urine WBC 2 (0-5) /hpf Ur Squamous Epith Cells 5 H (0-4) /hpf Urine Mucus Rare H (None) /hpf Influenza Type A (PCR) (Not Detectd) Influenza Type B (PCR) (Not Detectd) RSV (PCR) (Not Detectd) SARS-CoV-2 (PCR) (Not Detectd) 06/13/23 06/13/23 Range/Units 13:34 13:34 WBC (3.8-10.6) k/uL RBC (3.80-5.40) m/uL Hgb (11.4-16.0) gm/dL Hct (34.0-46.0) % MCV (80.0-100.0) fL MCH (25.0-35.0) pg MCHC (31.0-37.0) g/dL RDW (11.5-15.5) % Plt Count (150-450) k/uL MPV Neutrophils % % Lymphocytes % % Monocytes % % Eosinophils % % Basophils % % Neutrophils # (1.3-7.7) k/uL Lymphocytes # (1.0-4.8) k/uL Monocytes # (0-1.0) k/uL Eosinophils # (0-0.7) k/uL Basophils # (0-0.2) k/uL Sodium (137-145) mmol/L Potassium (3.5-5.1) mmol/L Chloride (98-107) mmol/L Carbon Dioxide (22-30) mmol/L Anion Gap mmol/L BUN (7-17) mg/dL Creatinine (0.52-1.04) mg/dL Est GFR (CKD-EPI)AfAm (>60 ml/min/1.73 sqM) Est GFR (CKD-EPI)NonAf (>60 ml/min/1.73 sqM) Glucose (74-99) mg/dL Plasma Lactic Acid Joce 1.4 (0.7-2.0) mmol/L Calcium (8.4-10.2) mg/dL C-Reactive Protein (<1.0) mg/dL Urine Color Urine Appearance (Clear) Urine pH (5.0-8.0) Ur Specific [place] (1.001-1.035) Urine Protein (Negative) Urine Glucose (UA) (Negative) Urine Ketones (Negative) Urine Blood (Negative) Urine Nitrite (Negative) Urine Bilirubin (Negative) Urine Urobilinogen (<2.0) mg/dL Ur Leukocyte Esterase (Negative) Urine RBC (0-5) /hpf Urine WBC (0-5) /hpf Ur Squamous Epith Cells (0-4) /hpf Urine Mucus (None) /hpf Influenza Type A (PCR) Not Detected (Not Detectd) Influenza Type B (PCR) Not Detected (Not Detectd) RSV (PCR) Not Detected (Not Detectd) SARS-CoV-2 (PCR) Not Detected (Not Detectd) Disposition Clinical Impression: Fever Disposition: ADMITTED IP TO THIS [facility] Condition: Fair Referrals: Julissa Montano III, MD [Primary Care Provider] - 1-2 days Decision Time: 14:45
[2023-06-13 13:56] LABS: Basophils % (A) 0 %; Eosinophils # (A) 0.2 k/uL (0-0.7); Eosinophils % (A) 2 %; HCT 35.5 % (34.0-46.0); HGB 11.3 gm/dL (11.4-16.0); Lymphocytes # (A) 1.4 k/uL (1.0-4.8); Lymphocytes % (A) 14 %; MCHC 31.9 g/dL (31.0-37.0); MCV 94.2 fL (80.0-100.0); Mean Platelet Volume 7.7; Monocytes # (A) 0.6 k/uL (0-1.0); Monocytes % (A) 6 %; Neutrophils % (A) 78 %; Platelet Count 345 k/uL (150-450); RBC 3.76 m/uL (3.80-5.40); WBC 10.3 k/uL (3.8-10.6)
[2023-06-13 14:21] LABS: African American GFR (CKD) >90 (>60 ml/min/1.73 sqM); Anion Gap 9 mmol/L; Blood Urea Nitrogen 16 mg/dL (7-17); C Reactive Protein 0.9 mg/dL (<1.0); Calcium 9.5 mg/dL (8.4-10.2); Carbon Dioxide 19 mmol/L (22-30); Chloride 107 mmol/L (98-107); Glucose 154 mg/dL (74-99); Non-African American GFR(CKD) >90 (>60 ml/min/1.73 sqM); Potassium 4.4 mmol/L (3.5-5.1); Sodium 135 mmol/L (137-145)
[2023-06-13] MEDS ORDERED: ONDANSETRON ODT 8 MG TAB.RAPDIS PO PRN (14:26)
[2023-06-13] MEDS ORDERED: PROMETHAZINE 25 MG TAB PO PRN (14:26)
[2023-06-13] MEDS ORDERED: diazePAM 5 MG TAB PO PRN (14:26)
[2023-06-13] MEDS ORDERED: LACTULOSE 20 GM/30 ML CUP PO PRN (14:26)
[2023-06-13] MEDS ORDERED: CAFFEINE PO PRN (14:26)
[2023-06-13] MEDS ORDERED: BUTALBITAL PO PRN (14:26)
[2023-06-13] MEDS ORDERED: ALBUTEROL NEBULIZED 2.5 MG/3 ML INHALATION PRN (14:26)
[2023-06-13] MEDS ORDERED: ASPIRIN PO PRN (14:26)
[2023-06-13] MEDS ORDERED: DICYCLOMINE 20 MG TAB PO PRN (14:26)
--- NOTE | 2023-06-13 14:32 | P.HPIM ---
History of Present Illness This is a pleasant 42 years old female with past medical history of Asthma, Diabetes Mellitus, Deep Vein Thrombosis , GERD/Reflux, Hearing Disorder / Deafness, Hyperlipidemia, Hypertension, Liver Disease, Neurologic Disorder, Sleep Apnea/CPAP/BIPAP, Syncope, hypothyroidism,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 Lymphedema left arm due to DVTs, . Hx Vtach, pituitary microadenoma, patent foramen ovale, narc olepsy, gastropareis, hx orthostatic hypotension/syncope, migraines with hemiplegia, pernicious anemia, polycystic ovarian syndrome, neuropathy bilateral legs/feet/arms, uses wheelchair, able to transfer and walk few steps. CPAP use. Lupus anticoagulation syndrome. Enlarged liver. History of infection with ESBL, MRSA Patient presents with fever for the last 3 days. Patient also was recently complaining from pain with urination and she is on Keflex for possible UTI. She noticed some pain at venous port in her left upper chest yesterday so she took it out and she noted some pus discharge from it, currently she has a Hep- Lock IV In the same area with this in place, minimal cellulitis is noted around the orifice but no discharge. He is fully awake on and oriented, calm. No chest pain dyspnea. No abdominal pain. Obese. He says uses support to get 2 L of normal saline every day and she get it at home. On admission she had a temperature of 100.1. Trace to Vitas looks stable. CBC showing normal WBC at 10.3, hemoglobin 11.3. Asthma lactic acid 1.4. (No other labs currently) no imaging results also. Review of Systems Review of systems CONSTITUTIONAL: No fever, no malaise, no fatigue. HEENT: No recent visual problems or hearing problems. Denied any sore throat. CARDIOVASCULAR: No orthopnea, PND, no palpitations, no syncope. PULMONARY: No shortness of breath, no cough, no hemoptysis. GASTROINTESTINAL: No diarrhea, no nausea, no vomiting, no abdominal pain. Normoactive bowel sounds. NEUROLOGICAL: No headaches, no weakness, no numbness. HEMATOLOGICAL: Denies any bleeding or petechiae. GENITOURINARY: Denies any burning micturition, frequency, or urgency. MUSCULOSKELETAL/RHEUMATOLOGICAL: Denies any joint pain, swelling, or any muscle pain. ENDOCRINE: Denies any polyuria or polydipsia. 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 Lymphedema left arm due to DVTs, avoid use of left arm for BP, IV, blood draws. Hx Vtach, pituitary microadenoma, patent foramen ovale, narcolepsy, gastropareis, hx orthostatic hypotension/syncope, migraines with hemiplegia, pernicious anemia, polycystic ovarian syndrome, neuropathy bilateral legs/feet/arms, uses wheelchair, able to transfer and walk few steps. CPAP use. Lupus anticoagulation syndrome. Enlarged liver. History of Any Multi-Drug Resistant Organisms: ESBL, MRSA Date of last positivie culture/infection: 12/20/22 ESBL E.coli; 03/09/17 MRSA MDRO Source:: Urine-ESBL; Left Arm-MRSA Past Surgical History: Cholecystectomy, Uterine Ablation Additional Past Surgical History / Comment(s): Colonscopy/EGD, GERSON, PORT-A-CATH INSERTION X3, PICC line insertion and later removed. Past Anesthesia/Blood Transfusion Reactions: Previous Problems w/ Anesthesia, Motion Sickness Additional Past Anesthesia/Blood Transfusion Reaction / Comment(s): Patient states difficult to sedate. Hx blood transfusions with no issues. Past Psychological History: Anxiety, Bipolar, Depression, PTSD Smoking Status: Never smoker Past Alcohol Use History: Rare Past Drug Use History: None Reported - Past Family History Brother(s) Family Medical History: Diabetes Mellitus, Hyperlipidemia, Hypertension Additional Family Medical History / Comment(s): Patient states she has 1 brother with no major medical problems. Father History Unknown: Yes Family Medical History: Diabetes Mellitus, Hyperlipidemia, Hypertension Mother Family Medical History: CVA/TIA, Diabetes Mellitus, Deep Vein Thrombosis (DVT) Additional Family Medical History / Comment(s): Antiphospholipid antibody syndrome, Lupus, dementia. Multiple DVT's and Strokes. Medications and Allergies Home Medications Medication Instructions Recorded Confirmed Type Levothyroxine Sodium [Synthroid] 100 mcg PO DAILY 01/16/19 06/13/23 History Methenamine Hippurate 1 gm PO BID 07/12/19 06/13/23 History Mirabegron [Myrbetriq] 25 mg PO DAILY 10/08/19 06/13/23 History Fenofibrate [Lofibra] 160 mg PO HS tab 10/17/19 06/13/23 Rx Rivaroxaban [Xarelto] 20 mg PO HS tab 10/17/19 06/13/23 Rx Promethazine [Phenergan] 25 mg PO TID PRN 11/30/19 06/13/23 History Levothyroxine Sodium [Synthroid] 125 mcg PO MOTUWETH 12/28/19 06/13/23 History Albuterol Inhaler [Ventolin Hfa 2 puff INHALATION RT-Q4H PRN 09/19/20 06/13/23 History Inhaler] Dexlansoprazole [Dexilant] 60 mg PO DAILY 09/19/20 06/13/23 History Galcanezumab-Gnlm [Emgality Pen] 120 mg SQ Q30D 09/19/20 06/13/23 History Cyanocobalamin (Vitamin B-12) 1,000 mcg PO DAILY 06/01/21 06/13/23 History [Vitamin B-12] Ezetimibe [Zetia] 10 mg PO HS 06/01/21 06/13/23 History busPIRone HCL [Buspar] 30 mg PO BID 06/01/21 06/13/23 History Baclofen [Lioresal] 20 mg PO QID 06/02/21 06/13/23 History Fluticasone/Vilanterol [Breo 1 puff INHALATION RT-DAILY 09/27/21 06/13/23 History Ellipta 100-25 Mcg Inhaler] Ondansetron Odt [Zofran ODT] 8 mg PO TID PRN 09/27/21 06/13/23 History polyethylene glycoL 3350 [Miralax] 17 gm PO DAILY 09/27/21 06/13/23 History Fluticasone Nasal [place] [Flonase 1 spr EA NOSTRIL DAILY 04/26/22 06/13/23 History Nasal [place]] [place] Carbonate [[place]Donnell 300 mg PO TID 04/26/22 06/13/23 History Carbonate ER] traZODone HCL 200 mg PO HS 04/26/22 06/13/23 History Dicyclomine HCl 20 mg PO Q6H PRN 06/23/22 06/13/23 History Prochlorperazine [Compro] 25 mg RECTAL Q8H PRN 06/23/22 06/13/23 History Rimegepant Sulfate [Nurtec Odt] 75 mg PO DAILY PRN 06/23/22 06/13/23 History cloNIDine HCL [Kapvay] 0.2 mg PO DAILY 06/23/22 06/13/23 History tiZANidine HCL 2 mg PO DAILY PRN 06/23/22 06/13/23 History HYDROcodone/APAP 7.5-325MG [[place] 1 tab PO Q8H PRN 10/07/22 06/13/23 History 7.5-325] Pioglitazone [Actos] 45 mg PO DAILY 10/07/22 06/13/23 History Semaglutide [Ozempic] 2 mg SQ SA 10/07/22 06/13/23 History cloNIDine HCL [Kapvay] 0.1 mg PO HS 10/07/22 06/13/23 History glipiZIDE 10 mg PO AC-BRKFST 10/07/22 06/13/23 History sitaGLIPtin [Januvia] 100 mg PO DAILY 10/07/22 06/13/23 History Famotidine 40 mg PO HS 11/07/22 06/13/23 History Metoprolol Succinate (ER) [Toprol 100 mg PO DAILY 11/07/22 06/13/23 History XL] Phenazopyridine HCl [Uristat Ultra] 99.5 mg PO DAILY PRN 11/07/22 06/13/23 History cloNIDine HCL [Catapres] 0.1 mg PO HS 12/15/22 06/13/23 History diazePAM [Valium] 5 mg PO DAILY PRN 02/18/23 06/13/23 History Meloxicam [Mobic] 15 mg PO DAILY 03/15/23 06/13/23 History modafiniL [Provigil] 400 mg PO DAILY 03/15/23 06/13/23 History Brexpiprazole [Rexulti] 2 mg PO HS 04/12/23 06/13/23 History Butalbital/Aspirin/Caffeine 1 tab PO DAILY PRN 04/12/23 06/13/23 History [Czhvuk-Apgfymp-Vmxgwjhn 50-325-40 mg] Diclofenac Sodium Gel [Voltaren 4 gm TOPICAL QID PRN 04/12/23 06/13/23 History Gel] Latanoprost [Latanoprost 0.005%] 1 drop BOTH EYES HS 04/12/23 06/13/23 History Sodium Chloride 0.9% Solution 2,000 ml IV DAILY 04/12/23 06/13/23 History Triamcinolone 0.5% Cream [Kenalog 1 applic TOPICAL BID PRN 04/12/23 06/13/23 History 0.5% Cream] Trimethoprim [Trimpex] 100 mg PO DAILY 04/12/23 06/13/23 History Brexpiprazole [Rexulti] 1 mg PO DAILY 06/13/23 06/13/23 History Cephalexin [Keflex] 500 mg PO QID 06/13/23 06/13/23 History Dexmethylphenidate HCl [Focalin Xr] 20 mg PO DAILY 06/13/23 06/13/23 History Gabapentin [Neurontin] 400 mg PO QID 06/13/23 06/13/23 History Lactulose 10 - 20 gm PO BID PRN 06/13/23 06/13/23 History Sucralfate [Carafate] 1 gm PO TID-W/MEALS 06/13/23 06/13/23 History Allergies Allergy/AdvReac Type Severity Reaction Status Date / Time peanut oil Allergy Severe Nausea & Verified 06/13/23 13:27 Vomiting,itching barium sulfate Allergy Anaphylaxis Verified 06/13/23 13:27 doxepin [Doxepin] Allergy Anaphylaxis Verified 06/13/23 13:27 ephedrine Allergy Chest Verified 06/13/23 13:27 Pain/tachycardia ertapenem [From Invanz] Allergy Rash/Hives- Verified 06/13/23 13:27 like a chemical burn peanut Allergy Anaphylaxis Verified 06/13/23 13:27 pseudoephedrine Allergy Chest Pain Verified 06/13/23 13:27 Sulfa (Sulfonamide Allergy Nausea & Verified 06/13/23 13:27 Antibiotics) Vomiting, DEHYDRATION sumatriptan [From Imitrex] Allergy affects Verified 06/13/23 13:27 vision-unable to see for hrs. doxycycline AdvReac Nausea & Verified 06/13/23 13:27 Vomiting & Diarrhea pseudoephedrine HCl AdvReac chest Verified 06/13/23 13:27 [From Sudafed] pain/tachycardia sulfamethoxazole AdvReac Nausea & Verified 06/13/23 13:27 [From Bactrim] Vomiting Adhesive Tape AdvReac Rash/Hives Uncoded 06/13/23 12:20 Physical Exam Vitals: Vital Signs Temp Pulse Resp BP Pulse Ox 06/13/23 12:14 100.1 F H 86 18 113/83 97 Intake and Output 06/12/23 06/13/23 06/13/23 22:59 06:59 14:59 Other: Weight 111.13 kg -GENERAL: The patient is alert and oriented x3, not in any acute distress. Obese HEENT: Pupils are round and equally reacting to light. EOMI. No scleral icterus. No conjunctival pallor. Normocephalic, atraumatic. No pharyngeal erythema. No thyromegaly. CARDIOVASCULAR: S1 and S2 present. No murmurs, rubs, or gallops. -PULMONARY: Chest is clear to auscultation, no wheezing or crackles. Left upper chest Hep-Lock with very minimal surrounding redness and no purulent discharge ABDOMEN: Soft, nontender, nondistended, normoactive bowel sounds. No palpable organomegaly. MUSCULOSKELETAL: No joint swelling or deformity. EXTREMITIES: No cyanosis, clubbing, or pedal edema. NEUROLOGICAL: Gross neurological examination did not reveal any focal deficits. SKIN: No rashes. no petechiae. Results CBC & Chem 7: 06/13/23 13:34 Labs: Abnormal Lab Results - Last 24 Hours (Table) 06/13/23 Range/Units 13:34 RBC 3.76 L (3.80-5.40) m/uL Hgb 11.3 L (11.4-16.0) gm/dL Neutrophils # 8.0 H (1.3-7.7) k/uL Assessment and Plan Assessment: Fever at home with possible left upper chest venous port infection Recent history of urinary tract infection. 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 Continue same treatment. Continue with symptomatic treatment. Resume home medication. Monitor labs and vitals. DVT and GI prophylaxis. Further recommendations as per clinical course of the patient DVT prophylaxis: Xarelto GI Prophylaxis: Pepcid PT/OT: Pending Prognosis is guarded
[2023-06-13 14:33] LABS: Appearance,Urine Clear (Clear); Bilirubin,Urine Negative (Negative); Blood,Urine Negative (Negative); Color,Urine Yellow; Glucose,Urine (UA) Negative (Negative); Ketones,Urine Negative (Negative); Leukocyte Esterase,Urine Trace (Negative); Mucus,Urine Rare /hpf; Nitrite,Urine Negative (Negative); PH, Urine 6.5 (5.0-8.0); Protein,Urine Negative (Negative); RBC,Urine 1 /hpf (0-5); Specific Gravity,Urine 1.022 (1.001-1.035); Squamous Epithelial Cell,Urine 5 /hpf (0-4); Urobilinogen,Urine <2.0 mg/dL (<2.0); WBC,Urine 2 /hpf (0-5)
--- NOTE | 2023-06-13 14:34 | XR ---
EXAMINATION TYPE: XR chest 1V portable DATE OF EXAM: 06/13/2023 2:30 PM COMPARISON: Chest radiographs from 04/12/2023 TECHNIQUE: XR chest 1V portable Portable AP radiograph of the chest. CLINICAL INDICATION:Female, 42 years old with history of fever; FINDINGS: Lungs/Pleura: There is no evidence of pleural effusion, focal consolidation, or pneumothorax. Pulmonary vascularity: Unremarkable. Heart/mediastinum: Cardiomediastinal silhouette is unremarkable. Musculoskeletal: No acute osseous pathology. Other findings: None Lines/Tubes: Bpzdom-p-Ugux projecting over the left hemithorax with distal tip in the right atrium in stable posit ion. IMPRESSION: No acute cardiopulmonary disease/process. No significant change from prior examination.
[2023-06-13] MEDS ORDERED: NALOXONE 0.4 MG/ML 1 ML VIAL IV PRN (14:42)
[2023-06-13] MEDS: SODIUM CHLORIDE 0.9% 1,000 ML IV SCH (15:37)
[2023-06-13] MEDS ORDERED: LITHIUM CARBONATE 300 MG CAP PO SCH (16:00)
[2023-06-13] MEDS: LITHIUM CARBONATE PO SCH ×2 (16:10→23:18)
[2023-06-13] MEDS: SUCRALFATE 1 GM TAB PO SCH (17:00)
[2023-06-13] MEDS ORDERED: VANCOMYCIN IV PER PHARMACY 1 EACH MISC MISCELLANE PRN (18:43)
[2023-06-13] MEDS: BACLOFEN 10 MG TAB PO SCH ×2 (18:59→23:15)
[2023-06-13] MEDS: GABAPENTIN 400 MG CAP PO SCH ×2 (18:59→23:15)
[2023-06-13] MEDS: FAMOTIDINE 20 MG TAB PO SCH (20:34)
[2023-06-13] MEDS: FENOFIBRATE 160 MG TAB PO SCH (20:35)
[2023-06-13] MEDS: cloNIDine HCL 0.1 MG TAB PO SCH ×2 (20:35→20:46)
[2023-06-13] MEDS: busPIRone HCl 10 MG TAB PO SCH (20:35)
[2023-06-13] MEDS: RIVAROXABAN 20 MG TAB PO SCH (20:35)
[2023-06-13] MEDS: EZETIMIBE 10 MG TAB PO SCH (20:35)
[2023-06-13] MEDS: VANCOMYCIN 1,750 MG in SODIUM CHLORIDE 0.9% 500 ML 500 ML IVPB SCH (20:41)
--- NOTE | 2023-06-13 21:58 | P.CONS ---
History of Present Illness - Reason for Consult Consult date: 06/13/23 - History of Present Illness Patient is a 42-year-old female with a past medical history significant for diabetes mellitus hypertension hyperlipidemia history of mitochondrial metabolic disorder in this patient with a history of multiple line related infection patient did have a left chest wall port for home infusion mostly hydration patient mention on Tuesday when she remove the needle that was there for about 6 days there was a small amount of pus that came out, the left chest wall port site was mildly inflamed and the patient did have some dull aching pain to the right of the no radiation patient subsequent started having a fever and chills fever of 101 F at home patient had did have some headache but no other URI symptoms no chest pain shortness of breath occasional cough no abdominal pain some nausea but no vomiting no diarrhea patient mention she did have some urinary symptoms of burning but no frequency, no suprapubic or flank pain with the symptoms the patient was evaluated on presentation to the hospital patient did have low-grade fever 100.1 degrees on the right patient was not tachycardic hypotensive or hypoxic did have a normal white count but a left shift BUN/creatinine was normal urine was trace leukocyte esterase 5 2 WBC influenza RSV and COVID testing was negative patient did have a chest x-ray no acute cardiopulmonary disease process patient did have blood cultures drawn adm itted to hospital infectious disease was consulted for further management of antibiotic therapy 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 Lymphedema left arm due to DVTs, avoid use of left arm for BP, IV, blood draws. Hx Vtach, pituitary microadenoma, patent foramen ovale, narcolepsy, gastropareis, hx orthostatic hypotension/syncope, migraines with hemiplegia, pernicious anemia, polycystic ovarian syndrome, neuropathy bilateral legs/feet/arms, uses wheelchair, able to transfer and walk few steps. CPAP use. Lupus anticoagulation syndrome. Enlarged liver. History of Any Multi-Drug Resistant Organisms: ESBL, MRSA Year Discovered:: 12/20/22 ESBL E.coli; 03/09/17 MRSA MDRO Source:: Urine-ESBL; Left Arm-MRSA Past Surgical History: Cholecystectomy, Uterine Ablation Additional Past Surgical History / Comment(s): Colonscopy/EGD, GERSON, PORT-A-CATH INSERTION X3, PICC line insertion and later removed. Past Anesthesia/Blood Transfusion Reactions: Previous Problems w/ Anesthesia, Motion Sickness Additional Past Anesthesia/Blood Transfusion Reaction / Comm: Patient states difficult to sedate. Hx blood transfusions with no issues. Past Psychological History: Anxiety, Bipolar, Depression, PTSD Smoking Status: Never smoker Past Alcohol Use History: Rare Past Drug Use History: None Reported - Past Family History Brother(s) Family Medical History: Diabetes Mellitus, Hyperlipidemia, Hypertension Additional Family Medical History / Comment(s): Patient states she has 1 brother with no major medical problems. Father History Unknown: Yes Family Medical History: Diabetes Mellitus, Hyperlipidemia, Hypertension Mother Family Medical History: CVA/TIA, Diabetes Mellitus, Deep Vein Thrombosis (DVT) Additional Family Medical History / Comment(s): Antiphospholipid antibody syndrome, Lupus, dementia. Multiple DVT's and Strokes. Medications and Allergies Home Medications Medication Instructions Recorded Confirmed Type Levothyroxine Sodium [Synthroid] 100 mcg PO DAILY 01/16/19 06/13/23 History Methenamine Hippurate 1 gm PO BID 07/12/19 06/13/23 History Mirabegron [Myrbetriq] 25 mg PO DAILY 10/08/19 06/13/23 History Fenofibrate [Lofibra] 160 mg PO HS tab 10/17/19 06/13/23 Rx Rivaroxaban [Xarelto] 20 mg PO HS tab 10/17/19 06/13/23 Rx Promethazine [Phenergan] 25 mg PO TID PRN 11/30/19 06/13/23 History Levothyroxine Sodium [Synthroid] 125 mcg PO MOTUWETH 12/28/19 06/13/23 History Albuterol Inhaler [Ventolin Hfa 2 puff INHALATION RT-Q4H PRN 09/19/20 06/13/23 History Inhaler] Dexlansoprazole [Dexilant] 60 mg PO DAILY 09/19/20 06/13/23 History Galcanezumab-Gnlm [Emgality Pen] 120 mg SQ Q30D 09/19/20 06/13/23 History Cyanocobalamin (Vitamin B-12) 1,000 mcg PO DAILY 06/01/21 06/13/23 History [Vitamin B-12] Ezetimibe [Zetia] 10 mg PO HS 06/01/21 06/13/23 History busPIRone HCL [Buspar] 30 mg PO BID 06/01/21 06/13/23 History Baclofen [Lioresal] 20 mg PO QID 06/02/21 06/13/23 History Fluticasone/Vilanterol [Breo 1 puff INHALATION RT-DAILY 09/27/21 06/13/23 History Ellipta 100-25 Mcg Inhaler] Ondansetron Odt [Zofran ODT] 8 mg PO TID PRN 09/27/21 06/13/23 History polyethylene glycoL 3350 [Miralax] 17 gm PO DAILY 09/27/21 06/13/23 History Fluticasone Nasal [place] [Flonase 1 spr EA NOSTRIL DAILY 04/26/22 06/13/23 History Nasal [place]] [place] Carbonate [Beirne 300 mg PO TID 04/26/22 06/13/23 History Carbonate ER] traZODone HCL 200 mg PO HS 04/26/22 06/13/23 History Dicyclomine HCl 20 mg PO Q6H PRN 06/23/22 06/13/23 History Prochlorperazine [Compro] 25 mg RECTAL Q8H PRN 06/23/22 06/13/23 History Rimegepant Sulfate [Nurtec Odt] 75 mg PO DAILY PRN 06/23/22 06/13/23 History cloNIDine HCL [Kapvay] 0.2 mg PO DAILY 06/23/22 06/13/23 History tiZANidine HCL 2 mg PO DAILY PRN 06/23/22 06/13/23 History HYDROcodone/APAP 7.5-325MG [[place] 1 tab PO Q8H PRN 10/07/22 06/13/23 History 7.5-325] Pioglitazone [Actos] 45 mg PO DAILY 10/07/22 06/13/23 History Semaglutide [Ozempic] 2 mg SQ SA 10/07/22 06/13/23 History cloNIDine HCL [Kapvay] 0.1 mg PO HS 10/07/22 06/13/23 History glipiZIDE 10 mg PO AC-BRKFST 10/07/22 06/13/23 History sitaGLIPtin [Januvia] 100 mg PO DAILY 10/07/22 06/13/23 History Famotidine 40 mg PO HS 11/07/22 06/13/23 History Metoprolol Succinate (ER) [Toprol 100 mg PO DAILY 11/07/22 06/13/23 History XL] Phenazopyridine HCl [Uristat Ultra] 99.5 mg PO DAILY PRN 11/07/22 06/13/23 History cloNIDine HCL [Catapres] 0.1 mg PO HS 12/15/22 06/13/23 History diazePAM [Valium] 5 mg PO DAILY PRN 02/18/23 06/13/23 History Meloxicam [Mobic] 15 mg PO DAILY 03/15/23 06/13/23 History modafiniL [Provigil] 400 mg PO DAILY 03/15/23 06/13/23 History Brexpiprazole [Rexulti] 2 mg PO HS 04/12/23 06/13/23 History Butalbital/Aspirin/Caffeine 1 tab PO DAILY PRN 04/12/23 06/13/23 History [Kapbdx-Bjusujo-Fwwsadxz 50-325-40 mg] Diclofenac Sodium Gel [Voltaren 4 gm TOPICAL QID PRN 04/12/23 06/13/23 History Gel] Latanoprost [Latanoprost 0.005%] 1 drop BOTH EYES HS 04/12/23 06/13/23 History Sodium Chloride 0.9% Solution 2,000 ml IV DAILY 04/12/23 06/13/23 History Triamcinolone 0.5% Cream [Kenalog 1 applic TOPICAL BID PRN 04/12/23 06/13/23 History 0.5% Cream] Trimethoprim [Trimpex] 100 mg PO DAILY 04/12/23 06/13/23 History Brexpiprazole [Rexulti] 1 mg PO DAILY 06/13/23 06/13/23 History Cephalexin [Keflex] 500 mg PO QID 06/13/23 06/13/23 History Dexmethylphenidate HCl [Focalin Xr] 20 mg PO DAILY 06/13/23 06/13/23 History Gabapentin [Neurontin] 400 mg PO QID 06/13/23 06/13/23 History Lactulose 10 - 20 gm PO BID PRN 06/13/23 06/13/23 History Sucralfate [Carafate] 1 gm PO TID-W/MEALS 06/13/23 06/13/23 History Allergies Allergy/AdvReac Type Severity Reaction Status Date / Time peanut oil Allergy Severe Nausea & Verified 06/13/23 13:27 Vomiting,itching barium sulfate Allergy Anaphylaxis Verified 06/13/23 13:27 doxepin [Doxepin] Allergy Anaphylaxis Verified 06/13/23 13:27 ephedrine Allergy Chest Verified 06/13/23 13:27 Pain/tachycardia ertapenem [From Invanz] Allergy Rash/Hives- Verified 06/13/23 13:27 like a chemical burn peanut Allergy Anaphylaxis Verified 06/13/23 13:27 pseudoephedrine Allergy Chest Pain Verified 06/13/23 13:27 Sulfa (Sulfonamide Allergy Nausea & Verified 06/13/23 13:27 Antibiotics) Vomiting, DEHYDRATION sumatriptan [From Imitrex] Allergy affects Verified 06/13/23 13:27 vision-unable to see for hrs. doxycycline AdvReac Nausea & Verified 06/13/23 13:27 Vomiting & Diarrhea pseudoephedrine HCl AdvReac chest Verified 06/13/23 13:27 [From Sudafed] pain/tachycardia sulfamethoxazole AdvReac Nausea & Verified 06/13/23 13:27 [From Bactrim] Vomiting Adhesive Tape AdvReac Rash/Hives Uncoded 06/13/23 12:20 Physical Exam Vitals: Vital Signs Temp Pulse Resp BP Pulse Ox 06/13/23 12:14 100.1 F H 86 18 113/83 97 Intake and Output 06/13/23 06/13/23 06/13/23 06:59 14:59 22:59 Other: Weight 111.13 kg Results CBC & Chem 7: 06/13/23 13:34 06/13/23 13:34 Labs: Abnormal Lab Results - Last 24 Hours (Table) 06/13/23 06/13/23 06/13/23 Range/Units 13:34 13:34 13:34 RBC 3.76 L (3.80-5.40) m/uL Hgb 11.3 L (11.4-16.0) gm/dL Neutrophils # 8.0 H (1.3-7.7) k/uL Sodium 135 L (137-145) mmol/L Carbon Dioxide 19 L (22-30) mmol/L Glucose 154 H (74-99) mg/dL Ur Leukocyte Esterase Trace H (Negative) Ur Squamous Epith Cells 5 H (0-4) /hpf Urine Mucus Rare H (None) /hpf Assessment and Plan Plan: 1patient presented hospital with a fever patient has been complaining of irritation at the left chest wall port site and also some purulent drainage concerning for possible line related infection in this patient chest x-ray reported negative urine was negative abdominal soft on clinical examination 2-patient with multiple antibiotic allergies that would limit the number of antibiotics safe to use 3-blood cultures will be obtained from the port site peripheral culture has already been obtained and will be followed 4-vancomycin pharmacy to dose with a target trough of 15 while watching kidney function and Vanco trough closely. We will follow on clinical condition and cultures to further adjust medication if needed Thank you for this consultation we will follow the patient along with you Dictation was produced using [employer] dictation software. please excuse any grammatical, word or spelling errors. Time with Patient: Greater than 30
[2023-06-13] MEDS: LATANOPROST 0.005% OPHTH DROPS 2.5 ML BTL BOTH EYES SCH (22:06)
[2023-06-14] MEDS: SODIUM CHLORIDE 0.9% 1,000 ML IV SCH (01:18)
[2023-06-14] MEDS ORDERED: DEXTROSE 50% SYRINGE 50 ML IVP PRN ×2 (05:55)
[2023-06-14 06:11] LABS: Glucose,Whole Blood 142 mg/dL (70-110)
[2023-06-14] MEDS: INSULIN ASPART (NovoLOG) 100 UNIT/ML VIAL SQ SCH ×4 (06:16→21:15)
[2023-06-14] MEDS: LEVOTHYROXINE 125 MCG TAB PO SCH (06:17)
[2023-06-14] MEDS: LEVOTHYROXINE 100 MCG TAB PO SCH (06:17)
[2023-06-14 07:29] LABS: African American GFR (CKD) >90 (>60 ml/min/1.73 sqM); Anion Gap 9 mmol/L; Blood Urea Nitrogen 11 mg/dL (7-17); Calcium 9.3 mg/dL (8.4-10.2); Carbon Dioxide 21 mmol/L (22-30); Chloride 109 mmol/L (98-107); Glucose 131 mg/dL (74-99); Non-African American GFR(CKD) >90 (>60 ml/min/1.73 sqM); Potassium 4.4 mmol/L (3.5-5.1); Sodium 139 mmol/L (137-145)
[2023-06-14] MEDS ORDERED: glipiZIDE 10 MG TAB PO SCH (07:30)
[2023-06-14] MEDS: SYMBICORT 80-4.5 MCG INHALER INHALATION SCH ×2 (08:09→20:30)
[2023-06-14] MEDS: SUCRALFATE 1 GM TAB PO SCH ×3 (10:47→17:22)
[2023-06-14] MEDS: BACLOFEN 10 MG TAB PO SCH ×4 (10:47→21:13)
[2023-06-14] MEDS: CYANOCOBALAMIN 500 MCG TAB PO SCH (10:47)
[2023-06-14] MEDS: FLUTICASONE 50MCG/SPRAY NASAL 16GM EA NOSTRIL SCH (10:47)
[2023-06-14] MEDS: GABAPENTIN 400 MG CAP PO SCH ×4 (10:48→21:14)
[2023-06-14] MEDS: busPIRone HCl 10 MG TAB PO SCH ×2 (10:48→21:13)
[2023-06-14] MEDS: LITHIUM CARBONATE PO SCH ×3 (10:51→21:14)
[2023-06-14] MEDS: polyethylene glycoL 3350 17 GM POWD.PACK PO SCH (10:52)
[2023-06-14] MEDS: PIOGLITAZONE 45 MG TAB PO SCH (10:52)
[2023-06-14 11:07] LABS: Glucose,Whole Blood 114 mg/dL (70-110)
--- NOTE | 2023-06-14 11:28 | P.PN ---
Subjective This is a pleasant 42 years old female with past medical history of Asthma, Diabetes Mellitus, Deep Vein Thrombosis , GERD/Reflux, Hearing Disorder / Deafness, Hyperlipidemia, Hypertension, Liver Disease, Neurologic Disorder, Sleep Apnea/CPAP/BIPAP, Syncope, hypothyroidism,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 Lymphedema left arm due to DVTs, . Hx Vtach, pituitary microadenoma, patent foramen ovale, narcolepsy, gastropareis, hx orthostatic hypotension/syncope, migraines with hemiplegia, pernicious anemia, polycystic ovarian syndrome, neuropathy bilateral legs/feet/arms, uses wheelchair, able to transfer and walk few steps. CPAP use. Lupus anticoagulation syndrome. Enlarged liver. History of infection with ESBL, MRSA Patient presents with fever for the last 3 days. Patient also was recently complaining from pain with urination and she is on Keflex for possible UTI. She noticed some pain at venous port in her left upper chest yesterday so she took it out and she noted some pus discharge from it, currently she has a Hep- Lock IV In the same area with this in place, minimal cellulitis is noted around the orifice but no discharge. He is fully awake on and oriented, calm. No chest pain dyspnea. No abdominal pain. Obese. He says uses support to get 2 L of normal saline every day and she get it at home. On admission she had a temperature of 100.1. Trace to Vitas looks stable. CBC showing normal WBC at 10.3, hemoglobin 11.3. Asthma lactic acid 1.4. (No other labs currently) no imaging results also. 06/14/2023 patient left upper chest port was suspected to be infected when she presents with fever yesterday to the emergency room Blood culture from the Hep-Lock was obtained and result is pending Patient was started on IV antibiotic per ID team, currently she is on IV va ncomycin Clinically she is doing well, she was walking in her room with no difficulty. Patient might need another IV line however we need to clear the infection first Objective - Vital Signs Vital signs: Vital Signs Temp 98.7 F 06/14/23 07:05 Pulse 77 06/14/23 07:05 Resp 17 06/14/23 07:05 BP 109/73 06/14/23 07:05 Pulse Ox 99 06/14/23 07:05 FiO2 Intake & Output 06/13/23 06/14/23 06/14/23 18:59 06:59 18:59 Weight 111.13 kg Other: # Voids 1 - Exam GENERAL: The patient is alert and oriented x3, not in any acute distress. Well d eveloped, well nourished. HEENT: Pupils are round and equally reacting to light. EOMI. No scleral icterus. No conjunctival pallor. Normocephalic, atraumatic. No pharyngeal erythema. No thyromegaly. CARDIOVASCULAR: S1 and S2 present. No murmurs, rubs, or gallops. PULMONARY: Chest is clear to auscultation, no wheezing , no crackles. Left upper chest hip lock/IV port site looks clean with no evidence of surrounding cellulitis or purulent discharge ABDOMEN: Soft, nontender, nondistended, normoactive bowel sounds. No palpable organomegaly. MUSCULOSKELETAL: No joint swelling or deformity. EXTREMITIES: No cyanosis, clubbing, or pedal edema. NEUROLOGICAL: Gross neurological examination did not reveal any focal deficits. SKIN: No rashes. no petechiae. - Labs CBC & Chem 7: 06/13/23 13:34 06/14/23 06:38 Labs: Abnormal Lab Results - Last 24 Hours (Table) 06/13/23 06/13/23 06/13/23 Range/Units 13:34 13:34 13:34 RBC 3.76 L (3.80-5.40) m/uL Hgb 11.3 L (11.4-16.0) gm/dL Neutrophils # 8.0 H (1.3-7.7) k/uL Sodium 135 L (137-145) mmol/L Chloride (98-107) mmol/L Carbon Dioxide 19 L (22-30) mmol/L Glucose 154 H (74-99) mg/dL POC Glucose (mg/dL) (70-110) mg/dL Ur Leukocyte Esterase Trace H (Negative) Ur Squamous Epith Cells 5 H (0-4) /hpf Urine Mucus Rare H (None) /hpf 06/14/23 06/14/23 06/14/23 Range/Units 06:10 06:38 11:05 RBC (3.80-5.40) m/uL Hgb (11.4-16.0) gm/dL Neutrophils # (1.3-7.7) k/uL Sodium (137-145) mmol/L Chloride 109 H (98-107) mmol/L Carbon Dioxide 21 L (22-30) mmol/L Glucose 131 H (74-99) mg/dL POC Glucose (mg/dL) 142 H 114 H (70-110) mg/dL Ur Leukocyte Esterase (Negative) Ur Squamous Epith Cells (0-4) /hpf Urine Mucus (None) /hpf Assessment and Plan Assessment: Fever at home with possible left upper chest venous port infection Recent history of urinary tract infection. 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 Continue same treatment. Continue with symptomatic treatment. Resume home medication. Monitor labs and vitals. DVT and GI prophylaxis. Further recommendations as per clinical course of the patient DVT prophylaxis: Xarelto GI Prophylaxis: Pepcid PT/OT: Pending Prognosis is guarded
[2023-06-14] MEDS: METOPROLOL SUCCINATE (ER) 100 MG TAB.ER.24H PO SCH (12:21)
[2023-06-14] MEDS: VANCOMYCIN 1,750 MG in SODIUM CHLORIDE 0.9% 500 ML 500 ML IVPB SCH ×3 (12:21→23:48)
[2023-06-14] MEDS: PATIENT'S OWN (Mirabegron [Myrbetriq] 25 MG Tab.Er.24h) PO SCH (13:46)
--- NOTE | 2023-06-14 14:05 | P.PN ---
Subjective Progress Note Date: 06/14/23 Principal diagnosis: Fever possible line infection Patient is a 42-year-old female with a past medical history significant for diabetes mellitus hypertension hyperlipidemia history of mitochondrial metabolic disorder in this patient with a history of multiple line related infection patient did have a left chest wall port for home infusion mostly hydration, presented to the hospital with fever and some drainage from the port site concerning for line infection. On today's evaluation that is 06/14/2023 the patient is afebrile this morning the patient is breathing comfortably on room air no chest pain or shortness of occasional Nausea or Vomiting No Abdominal Pain and No Diarrhea Objective - Vital Signs Vital signs: Vital Signs Temp 98.7 F 06/14/23 07:05 Pulse 77 06/14/23 07:05 Resp 17 06/14/23 07:05 BP 109/73 06/14/23 07:05 Pulse Ox 99 06/14/23 07:05 FiO2 Intake & Output 06/13/23 06/14/23 06/14/23 18:59 06:59 18:59 Weight 111.13 kg Other: # Voids 1 - Exam GENERAL DESCRIPTION: A middle-age female lying in bed in no distress RESPIRATORY SYSTEM: Unlabored breathing , decreased breath sounds at bases HEART: S1 S2 regular rate and rhythm , ABDOMEN: Soft , no tenderness EXTREMITIES: No edema feet - Labs CBC & Chem 7: 06/13/23 13:34 06/14/23 06:38 Labs: Abnormal Lab Results - Last 24 Hours (Table) 06/13/23 06/13/23 06/13/23 Range/Units 13:34 13:34 13:34 RBC 3.76 L (3.80-5.40) m/uL Hgb 11.3 L (11.4-16.0) gm/dL Neutrophils # 8.0 H (1.3-7.7) k/uL Sodium 135 L (137-145) mmol/L Chloride (98-107) mmol/L Carbon Dioxide 19 L (22-30) mmol/L Glucose 154 H (74-99) mg/dL POC Glucose (mg/dL) (70-110) mg/dL Ur Leukocyte Esterase Trace H (Negative) Ur Squamous Epith Cells 5 H (0-4) /hpf Urine Mucus Rare H (None) /hpf 06/14/23 06/14/23 06/14/23 Range/Units 06:10 06:38 11:05 RBC (3.80-5.40) m/uL Hgb (11.4-16.0) gm/dL Neutrophils # (1.3-7.7) k/uL Sodium (137-145) mmol/L Chloride 109 H (98-107) mmol/L Carbon Dioxide 21 L (22-30) mmol/L Glucose 131 H (74-99) mg/dL POC Glucose (mg/dL) 142 H 114 H (70-110) mg/dL Ur Leukocyte Esterase (Negative) Ur Squamous Epith Cells (0-4) /hpf Urine Mucus (None) /hpf Assessment and Plan (1) Fever Current Visit: Yes Status: Acute Code(s): R50.9 - FEVER, UNSPECIFIED SNOMED Code(s): 440831628 Plan: 1patient presented hospital with a fever patient has been complaining of irritation at the left chest wall port site and also some purulent drainage concerning for possible line related infection in this patient chest x-ray reported negative urine was negative abdominal soft on clinical examination 2-patient with multiple antibiotic allergies that would limit the number of antibiotics safe to use 3-blood cultures has been obtained from the port site peripheral culture has already been obtained and will be followed 4-patient to continue vancomycin pharmacy to dose with a target trough of 15 while watching kidney function and Vanco trough closely. Dictation was produced using [employer] dictation software. please excuse any grammatical, word or spelling errors. Time with Patient: Less than 30
[2023-06-14] MEDS ORDERED: BUTALB/APAP/CAFF 50-325-40MG TAB PO PRN (15:11)
[2023-06-14 16:11] LABS: Glucose,Whole Blood 125 mg/dL (70-110)
[2023-06-14 20:45] LABS: Glucose,Whole Blood 118 mg/dL (70-110)
[2023-06-14] MEDS ORDERED: BREXPIPRAZOLE 2 MG PO SCH (21:00)
[2023-06-14] MEDS: FAMOTIDINE 20 MG TAB PO SCH (21:13)
[2023-06-14] MEDS: EZETIMIBE 10 MG TAB PO SCH (21:13)
[2023-06-14] MEDS: FENOFIBRATE 160 MG TAB PO SCH (21:13)
[2023-06-14] MEDS: cloNIDine HCL 0.1 MG TAB PO SCH (21:14)
[2023-06-14] MEDS: RIVAROXABAN 20 MG TAB PO SCH (21:14)
[2023-06-14] MEDS: LATANOPROST 0.005% OPHTH DROPS 2.5 ML BTL BOTH EYES SCH (21:16)
[2023-06-14] MEDS: HYDROcodone/APAP 7.5-325MG 1 EACH TAB PO PRN (23:06)
[2023-06-15] MEDS: ONDANSETRON ODT 4 MG TAB PO PRN ×2 (05:54→22:33)
[2023-06-15] MEDS: LEVOTHYROXINE 125 MCG TAB PO SCH (05:54)
[2023-06-15] MEDS: LEVOTHYROXINE 100 MCG TAB PO SCH (05:54)
[2023-06-15] MEDS: INSULIN ASPART (NovoLOG) 100 UNIT/ML VIAL SQ SCH ×4 (05:55→21:03)
[2023-06-15 05:56] LABS: Glucose,Whole Blood 147 mg/dL (70-110)
[2023-06-15] MEDS: BACLOFEN 10 MG TAB PO SCH ×4 (08:11→20:53)
[2023-06-15] MEDS: busPIRone HCl 10 MG TAB PO SCH ×2 (08:11→20:53)
[2023-06-15] MEDS: SUCRALFATE 1 GM TAB PO SCH ×3 (08:11→17:31)
[2023-06-15] MEDS: polyethylene glycoL 3350 17 GM POWD.PACK PO SCH (08:12)
[2023-06-15] MEDS: FLUTICASONE 50MCG/SPRAY NASAL 16GM EA NOSTRIL SCH (08:12)
[2023-06-15] MEDS: CYANOCOBALAMIN 500 MCG TAB PO SCH (08:12)
[2023-06-15] MEDS: PATIENT'S OWN (Mirabegron [Myrbetriq] 25 MG Tab.Er.24h) PO SCH (08:12)
[2023-06-15] MEDS: BREXPIPRAZOLE 2 MG PO SCH ×2 (08:12→20:53)
[2023-06-15] MEDS: PIOGLITAZONE 45 MG TAB PO SCH (08:12)
[2023-06-15] MEDS: LITHIUM CARBONATE PO SCH ×3 (08:12→20:53)
[2023-06-15] MEDS: GABAPENTIN 400 MG CAP PO SCH ×4 (08:12→20:53)
[2023-06-15] MEDS: METOPROLOL SUCCINATE (ER) 100 MG TAB.ER.24H PO SCH (08:13)
[2023-06-15] MEDS: Dexlansoprazole [Dexilant] 60 MG Cap.Dr.Bp PO SCH (08:14)
[2023-06-15] MEDS: SYMBICORT 80-4.5 MCG INHALER INHALATION SCH ×2 (09:39→21:27)
[2023-06-15] MEDS: HYDROcodone/APAP 7.5-325MG 1 EACH TAB PO PRN (10:20)
[2023-06-15 11:52] LABS: Glucose,Whole Blood 115 mg/dL (70-110)
[2023-06-15] MEDS: VANCOMYCIN 1,750 MG in SODIUM CHLORIDE 0.9% 500 ML 500 ML IVPB SCH ×2 (12:08→22:33)
[2023-06-15 16:15] LABS: Glucose,Whole Blood 116 mg/dL (70-110)
[2023-06-15] MEDS: SODIUM CHLORIDE 0.9% 1,000 ML IV SCH (17:31)
[2023-06-15] MEDS: FENOFIBRATE 160 MG TAB PO SCH (20:53)
[2023-06-15] MEDS: FAMOTIDINE 20 MG TAB PO SCH (20:53)
[2023-06-15] MEDS: EZETIMIBE 10 MG TAB PO SCH (20:53)
[2023-06-15] MEDS: cloNIDine HCL 0.1 MG TAB PO SCH (20:53)
[2023-06-15 20:55] LABS: Glucose,Whole Blood 132 mg/dL (70-110)
[2023-06-15] MEDS ORDERED: traZODone HCL 100 MG TAB PO SCH (21:15)
[2023-06-15] MEDS: METHENAMINE HIPPURATE 1 GM PO SCH (21:39)
[2023-06-15] MEDS: LATANOPROST 0.005% OPHTH DROPS 2.5 ML BTL BOTH EYES SCH (21:39)
[2023-06-15] MEDS: RIVAROXABAN 20 MG TAB PO SCH (21:39)
[2023-06-16] MEDS: LEVOTHYROXINE 125 MCG TAB PO SCH (06:26)
[2023-06-16] MEDS: LEVOTHYROXINE 100 MCG TAB PO SCH (06:26)
[2023-06-16 06:36] LABS: Glucose,Whole Blood 150 mg/dL (70-110)
[2023-06-16] MEDS: INSULIN ASPART (NovoLOG) 100 UNIT/ML VIAL SQ SCH ×2 (06:36→12:18)
[2023-06-16 07:56] VITALS: BP 127/82; PULSE 72; RESP 17; TEMP 98.7
[2023-06-16] MEDS: SYMBICORT 80-4.5 MCG INHALER INHALATION SCH (08:30)
[2023-06-16] MEDS: SUCRALFATE 1 GM TAB PO SCH ×2 (09:39→12:26)
[2023-06-16] MEDS: BACLOFEN 10 MG TAB PO SCH ×2 (09:39→12:26)
[2023-06-16] MEDS: busPIRone HCl 10 MG TAB PO SCH (09:39)
[2023-06-16] MEDS: PIOGLITAZONE 45 MG TAB PO SCH (09:39)
[2023-06-16] MEDS: GABAPENTIN 400 MG CAP PO SCH ×2 (09:39→12:26)
[2023-06-16] MEDS: polyethylene glycoL 3350 17 GM POWD.PACK PO SCH (09:39)
[2023-06-16] MEDS: FLUTICASONE 50MCG/SPRAY NASAL 16GM EA NOSTRIL SCH (09:40)
[2023-06-16] MEDS: BREXPIPRAZOLE 2 MG PO SCH (09:40)
[2023-06-16] MEDS: CYANOCOBALAMIN 500 MCG TAB PO SCH (09:40)
[2023-06-16] MEDS: LITHIUM CARBONATE PO SCH (09:40)
[2023-06-16] MEDS: PATIENT'S OWN (Mirabegron [Myrbetriq] 25 MG Tab.Er.24h) PO SCH (09:40)
[2023-06-16] MEDS: METHENAMINE HIPPURATE 1 GM PO SCH (09:40)
[2023-06-16] MEDS: METOPROLOL SUCCINATE (ER) 100 MG TAB.ER.24H PO SCH (09:40)
--- NOTE | 2023-06-16 10:23 | P.PN ---
Subjective This is a pleasant 42 years old female with past medical history of Asthma, Diabetes Mellitus, Deep Vein Thrombosis , GERD/Reflux, Hearing Disorder / Deafness, Hyperlipidemia, Hypertension, Liver Disease, Neurologic Disorder, Sleep Apnea/CPAP/BIPAP, Syncope, hypothyroidism,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 Lymphedema left arm due to DVTs, . Hx Vtach, pituitary microadenoma, patent foramen ovale, narcolepsy, gastropareis, hx orthostatic hypotension/syncope, migraines with hemiplegia, pernicious anemia, polycystic ovarian syndrome, neuropathy bilateral legs/feet/arms, uses wheelchair, able to transfer and walk few steps. CPAP use. Lupus anticoagulation syndrome. Enlarged liver. History of infection with ESBL, MRSA Patient presents with fever for the last 3 days. Patient also was recently complaining from pain with urination and she is on Keflex for possible UTI. She noticed some pain at venous port in her left upper chest yesterday so she took it out and she noted some pus discharge from it, currently she has a Hep- Lock IV In the same area with this in place, minimal cellulitis is noted around the orifice but no discharge. He is fully awake on and oriented, calm. No chest pain dyspnea. No abdominal pain. Obese. He says uses support to get 2 L of normal saline every day and she get it at home. On admission she had a temperature of 100.1. Trace to Vitas looks stable. CBC showing normal WBC at 10.3, hemoglobin 11.3. Asthma lactic acid 1.4. (No other labs currently) no imaging results also. 06/14/2023 patient left upper chest port was suspected to be infected when she presents with fever yesterday to the emergency room Blood culture from the Hep-Lock was obtained and result is pending Patient was started on IV antibiotic per ID team, currently she is on IV va ncomycin Clinically she is doing well, she was walking in her room with no difficulty. Patient might need another IV line however we need to clear the infection first 06/15/1942 Patient admitted with fever and suspected port infection She remains on IV vancomycin and blood and wound culture are still pending. IV side with a Hep-Lock in the left upper chest is working currently Patient to be doing well and she is asking when she can be discharged as she looks close to her baseline We'll keep monitoring Objective - Vital Signs Vital signs: Vital Signs Temp 98.9 F 06/15/23 20:00 Pulse 80 06/15/23 20:00 Resp 16 06/15/23 20:00 BP 119/78 06/15/23 20:00 Pulse Ox 97 06/15/23 20:00 FiO2 Intake & Output 06/15/23 06/15/23 06/16/23 06:59 18:59 06:59 Intake Total 940 Output Total 1 Balance 940 -1 Intake: Intake, IV Titration 700 Amount Sodium Chloride 0.9% 1, 200 000 ml @ 20 mls/hr IV . Q24H JOSE Rx#:[id number] Vancomycin 1,750 mg In 500 Sodium Chloride 0.9% 500 ml 500 ml @ 167 mls/hr IVPB Q12H JOSE Rx#: [id number] Oral 240 Output: Stool 1 Other: Voiding Method Bedside Commode # Voids 2 1 - Exam GENERAL: The patient is alert and oriented x3, not in any acute distress. Well developed, well nourished. HEENT: Pupils are round and equally reacting to light. EOMI. No scleral icterus. No conjunctival pallor. Normocephalic, atraumatic. No pharyngeal erythema. No thyromegaly. CARDIOVASCULAR: S1 and S2 present. No murmurs, rubs, or gallops. PULMONARY: Chest is clear to auscultation, no wheezing , no crackles. Left upper chest hip lock/IV port site looks clean with no evidence of surrounding cellulitis or purulent discharge ABDOMEN: Soft, nontender, nondistended, normoactive bowel sounds. No palpable organomegaly. MUSCULOSKELETAL: No joint swelling or deformity. EXTREMITIES: No cyanosis, clubbing, or pedal edema. NEUROLOGICAL: Gross neurological examination did not reveal any focal deficits. SKIN: No rashes. no petechiae. - Labs CBC & Chem 7: 06/13/23 13:34 06/15/23 05:46 Labs: Abnormal Lab Results - Last 24 Hours (Table) 06/15/23 06/15/23 06/15/23 Range/Units 05:55 11:51 16:14 POC Glucose (mg/dL) 147 H 115 H 116 H (70-110) mg/dL 06/15/23 Range/Units 20:54 POC Glucose (mg/dL) 132 H (70-110) mg/dL Microbiology - Last 24 Hours (Table) 06/14/23 09:50 Blood Culture - Preliminary Blood 06/13/23 20:35 Gram Stain - Preliminary Chest Wound Culture - Preliminary 06/13/23 13:34 Blood Culture - Preliminary Blood Assessment and Plan Assessment: Fever at home with possible left upper chest venous port infection Recent history of urinary tract infection. 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 Continue same treatment. Continue with symptomatic treatment. Resume home medication. Monitor labs and vitals. DVT and GI prophylaxis. Further recommendations as per clinical course of the patient DVT prophylaxis: Xarelto GI Prophylaxis: Pepcid PT/OT: Pending Prognosis is guarded
[2023-06-16] MEDS: Dexlansoprazole [Dexilant] 60 MG Cap.Dr.Bp PO SCH (10:29)
[2023-06-16] MEDS ORDERED: VANCOMYCIN TROUGH DUE 1 EACH MISC MISCELLANE ONE (11:00)
[2023-06-16 11:20] LABS: Glucose,Whole Blood 145 mg/dL (70-110)
[2023-06-16 12:09] LABS: African American GFR (CKD) >90 (>60 ml/min/1.73 sqM); Non-African American GFR(CKD) >90 (>60 ml/min/1.73 sqM)
[2023-06-16] MEDS: VANCOMYCIN 1,750 MG in SODIUM CHLORIDE 0.9% 500 ML 500 ML IVPB SCH (12:15)
--- NOTE | 2023-06-17 20:46 | P.DS ---
Providers Date of admission: 06/13/23 14:42 Expected date of discharge: 06/16/23 Attending physician: Adriana Douglas Consults: 06/13/23 14:42 Consult Physician Routine Consulting Provider: Juliane Llanes Consult Reason/Comments: fevers Do you want consulting provider notified?: Yes Primary care physician: Julissa Montano Hospital Course: Final diagnosis Fever at home with possible left upper chest venous port infection, cultures are negative Recent history of urinary tract infection. 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 Patient will follow-up with Dr. Montano in the outpatient setting upon discharge. Total time taken is greater than 35 minutes. Hospital course This is a 42-year-old female who was recently admitted with fevers with concerns of possible chest wall Mediport infection. Cultures are negative patient was being followed closely with infectious disease. Patient is afebrile and was maintained on antibiotics and has adequately been treated. Cultures remain negative and has been cleared by infectious disease. Please refer to other consultation notes for further HPI. Currently no reports of chest pain, shortness of breath, or palpitations. Patient is afebrile. No reports of nausea or vomiting and patient is tolerating diet. Patient reports to feeling well and would like to go home. Patient will be discharged home today. Guarded prognosis and high risk for readmissions as patient has had multiple hospitalizations for this previously. Physical exam: Gen: This is a 42-year-old female who is awake, alert and oriented 3, well- developed, well-nourished, morbidly obese HEENT: Head is atraumatic, normocephalic. Pupils equal, round. Sclerae is anicteric. NECK: Supple. No JVD. No lymphadenopathy. No thyromegaly. LUNGS: Diminished breath sounds bilaterally with no wheezes or rhonchi. No intercostal retractions. HEART: S1, S2 are muffled ABDOMEN: Soft. Obese Bowel sounds are present. No masses. No tenderness. EXTREMITIES: No pedal edema. No calf tenderness. NEUROLOGICAL: Patient is awake, alert and oriented x3. Cranial nerves 2 through 12 are grossly intact. Please refer to medication reconciliation sheet for a list of medications. The impression and plan of care has been dictated by Ariadne Enciso, Nurse Practitioner as directed. Dr. Misael MD I have performed a history and examination and MDM of this patient, discussed the same with the dictator, and agree with the dictator's assessment and plan as written ,documented as a scribe. Based on total visit time, I have performed more than 50% of the visit. Patient Condition at Discharge: Fair Plan - Discharge Summary New Discharge Prescriptions: Continue Levothyroxine Sodium [Synthroid] 100 mcg PO DAILY Methenamine Hippurate 1 gm PO BID Mirabegron [Myrbetriq] 25 mg PO DAILY Fenofibrate [Lofibra] 160 mg PO HS tab Rivaroxaban [Xarelto] 20 mg PO HS tab Promethazine [Phenergan] 25 mg PO TID PRN PRN Reason: Nausea Levothyroxine Sodium [Synthroid] 125 mcg PO MOTUWETH Albuterol Inhaler [Ventolin Hfa Inhaler] 2 puff INHALATION RT-Q4H PRN PRN Reason: Shortness Of Breath Dexlansoprazole [Dexilant] 60 mg PO DAILY Galcanezumab-Gnlm [Emgality Pen] 120 mg SQ Q30D Baclofen [Lioresal] 20 mg PO QID polyethylene glycoL 3350 [Miralax] 17 gm PO DAILY [place] Carbonate [[place] Carbonate ER] 300 mg PO TID cloNIDine HCL [Kapvay] 0.2 mg PO DAILY Prochlorperazine [Compro] 25 mg RECTAL Q8H PRN PRN Reason: Nausea Rimegepant Sulfate [Nurtec Odt] 75 mg PO DAILY PRN PRN Reason: Migraine Headache HYDROcodone/APAP 7.5-325MG [[place] 7.5-325] 1 tab PO Q8H PRN PRN Reason: Pain Pioglitazone [Actos] 45 mg PO DAILY Famotidine 40 mg PO HS Metoprolol Succinate (ER) [Toprol XL] 100 mg PO DAILY Phenazopyridine HCl [Uristat Ultra] 99.5 mg PO DAILY PRN PRN Reason: urinary pain cloNIDine HCL [Catapres] 0.1 mg PO HS modafiniL [Provigil] 400 mg PO DAILY Meloxicam [Mobic] 15 mg PO DAILY Trimethoprim [Trimpex] 100 mg PO DAILY Latanoprost [Latanoprost 0.005%] 1 drop BOTH EYES HS Sucralfate [Carafate] 1 gm PO TID-W/MEALS Gabapentin [Neurontin] 400 mg PO QID Ezetimibe [Zetia] 10 mg PO HS Cyanocobalamin (Vitamin B-12) [Vitamin B-12] 1,000 mcg PO DAILY busPIRone HCL [Buspar] 30 mg PO BID Fluticasone/Vilanterol [Breo Ellipta 100-25 Mcg Inhaler] 1 puff INHALATION RT-DAILY Ondansetron Odt [Zofran ODT] 8 mg PO TID PRN PRN Reason: Nausea Fluticasone Nasal Olive [Flonase Nasal Olive] 1 spr EA NOSTRIL DAILY traZODone HCL 200 mg PO HS tiZANidine HCL 2 mg PO DAILY PRN PRN Reason: Muscle Pain Dicyclomine HCl 20 mg PO Q6H PRN PRN Reason: Gi Upset cloNIDine HCL [Kapvay] 0.1 mg PO HS sitaGLIPtin [Januvia] 100 mg PO DAILY glipiZIDE 10 mg PO AC-BRKFST Semaglutide [Ozempic] 2 mg SQ SA diazePAM [Valium] 5 mg PO DAILY PRN PRN Reason: Anxiety Triamcinolone 0.5% Cream [Kenalog 0.5% Cream] 1 applic TOPICAL BID PRN PRN Reason: Rash Butalbital/Aspirin/Caffeine [Zwntik-Jedoijt-Plbylgra 50-325-40 mg] 1 tab PO DAILY PRN PRN Reason: Migraine Headache Diclofenac Sodium Gel [Voltaren Gel] 4 gm TOPICAL QID PRN PRN Reason: Pain Brexpiprazole [Rexulti] 2 mg PO HS Sodium Chloride 0.9% Solution 2,000 ml IV DAILY Lactulose 10 - 20 gm PO BID PRN PRN Reason: Constipation Dexmethylphenidate HCl [Focalin Xr] 20 mg PO DAILY Brexpiprazole [Rexulti] 1 mg PO DAILY Discontinued Cephalexin [Keflex] 500 mg PO QID Discharge Medication List Levothyroxine Sodium [Synthroid] 100 mcg PO DAILY 01/16/19 [History] Methenamine Hippurate 1 gm PO BID 07/12/19 [History] Mirabegron [Myrbetriq] 25 mg PO DAILY 10/08/19 [History] Fenofibrate [Lofibra] 160 mg PO HS tab 10/17/19 [Rx] Rivaroxaban [Xarelto] 20 mg PO HS tab 10/17/19 [Rx] Promethazine [Phenergan] 25 mg PO TID PRN 11/30/19 [History] Levothyroxine Sodium [Synthroid] 125 mcg PO MOTUWETH 12/28/19 [History] Albuterol Inhaler [Ventolin Hfa Inhaler] 2 puff INHALATION RT-Q4H PRN 09/19/20 [History] Dexlansoprazole [Dexilant] 60 mg PO DAILY 09/19/20 [History] Galcanezumab-Gnlm [Emgality Pen] 120 mg SQ Q30D 09/19/20 [History] Cyanocobalamin (Vitamin B-12) [Vitamin B-12] 1,000 mcg PO DAILY 06/01/21 [History] Ezetimibe [Zetia] 10 mg PO HS 06/01/21 [History] busPIRone HCL [Buspar] 30 mg PO BID 06/01/21 [History] Baclofen [Lioresal] 20 mg PO QID 06/02/21 [History] Fluticasone/Vilanterol [Breo Ellipta 100-25 Mcg Inhaler] 1 puff INHALATION RT- DAILY 09/27/21 [History] Ondansetron Odt [Zofran ODT] 8 mg PO TID PRN 09/27/21 [History] polyethylene glycoL 3350 [Miralax] 17 gm PO DAILY 09/27/21 [History] Fluticasone Nasal Olive [Flonase Nasal Olive] 1 spr EA NOSTRIL DAILY 04/26/22 [History] [place] Carbonate [[place] Carbonate ER] 300 mg PO TID 04/26/22 [History] traZODone HCL 200 mg PO HS 04/26/22 [History] Dicyclomine HCl 20 mg PO Q6H PRN 06/23/22 [History] Prochlorperazine [Compro] 25 mg RECTAL Q8H PRN 06/23/22 [History] Rimegepant Sulfate [Nurtec Odt] 75 mg PO DAILY PRN 06/23/22 [History] cloNIDine HCL [Kapvay] 0.2 mg PO DAILY 06/23/22 [History] tiZANidine HCL 2 mg PO DAILY PRN 06/23/22 [History] HYDROcodone/APAP 7.5-325MG [[place] 7.5-325] 1 tab PO Q8H PRN 10/07/22 [History] Pioglitazone [Actos] 45 mg PO DAILY 10/07/22 [History] Semaglutide [Ozempic] 2 mg SQ SA 10/07/22 [History] cloNIDine HCL [Kapvay] 0.1 mg PO HS 10/07/22 [History] glipiZIDE 10 mg PO AC-BRKFST 10/07/22 [History] sitaGLIPtin [Januvia] 100 mg PO DAILY 10/07/22 [History] Famotidine 40 mg PO HS 11/07/22 [History] Metoprolol Succinate (ER) [Toprol XL] 100 mg PO DAILY 11/07/22 [History] Phenazopyridine HCl [Uristat Ultra] 99.5 mg PO DAILY PRN 11/07/22 [History] cloNIDine HCL [Catapres] 0.1 mg PO HS 12/15/22 [History] diazePAM [Valium] 5 mg PO DAILY PRN 02/18/23 [History] Meloxicam [Mobic] 15 mg PO DAILY 03/15/23 [History] modafiniL [Provigil] 400 mg PO DAILY 03/15/23 [History] Brexpiprazole [Rexulti] 2 mg PO HS 04/12/23 [History] Butalbital/Aspirin/Caffeine [Byiyws-Hrjiwhv-Lslvdcxd 50-325-40 mg] 1 tab PO DAILY PRN 04/12/23 [History] Diclofenac Sodium Gel [Voltaren Gel] 4 gm TOPICAL QID PRN 04/12/23 [History] Latanoprost [Latanoprost 0.005%] 1 drop BOTH EYES HS 04/12/23 [History] Sodium Chloride 0.9% Solution 2,000 ml IV DAILY 04/12/23 [History] Triamcinolone 0.5% Cream [Kenalog 0.5% Cream] 1 applic TOPICAL BID PRN 04/12/23 [History] Trimethoprim [Trimpex] 100 mg PO DAILY 04/12/23 [History] Brexpiprazole [Rexulti] 1 mg PO DAILY 06/13/23 [History] Dexmethylphenidate HCl [Focalin Xr] 20 mg PO DAILY 06/13/23 [History] Gabapentin [Neurontin] 400 mg PO QID 06/13/23 [History] Lactulose 10 - 20 gm PO BID PRN 06/13/23 [History] Sucralfate [Carafate] 1 gm PO TID-W/MEALS 06/13/23 [History] Follow up Appointment(s)/Referral(s): Julissa Montano III, MD [Primary Care Provider] - 1-2 days (Office closed for lunch. Please call office when open for appointment.) [facility], [NON-STAFF] - 1-2 Days [facility], [REFERRING] - As Needed ([facility] will continue to supply patient for outpatient hydration. Please call if you have questions regarding your outpatient infusions. ) Activity/Diet/Wound Care/Special Instructions: Activity Limited until follow-up Follow-up with primary care provider on discharge Continue with medications as prescribed Discharge Disposition: HOME WITH HOME HEALTH SERVICES
== END 2023-06-16 15:07 | disposition home health service (06) | DRG 315 ==
LOC: EC 12:07 → 4SSUR 14:42
PROVIDERS: ADMIT Hospitalist; ATTEND Hospitalist
DX: T80.212A Local infection due to central venous catheter, initial encounter (principal); E88.40 Mitochondrial metabolism disorder, unspecified; G81.90 Hemiplegia, unspecified affecting unspecified side; Q21.12 Patent foramen ovale; Z68.41 Body mass index [BMI] 40.0-44.9, adult; L03.313 Cellulitis of chest wall; E11.42 Type 2 diabetes mellitus with diabetic polyneuropathy; E66.9 Obesity, unspecified; E78.5 Hyperlipidemia, unspecified; I89.0 Lymphedema, not elsewhere classified; E06.3 Autoimmune thyroiditis; F31.9 Bipolar disorder, unspecified; M32.9 Systemic lupus erythematosus, unspecified; E03.9 Hypothyroidism, unspecified; K31.84 Gastroparesis; E28.2 Polycystic ovarian syndrome; G43.909 Migraine, unspecified, not intractable, without status migrainosus; D51.0 Vitamin B12 deficiency anemia due to intrinsic factor deficiency; F43.10 Post-traumatic stress disorder, unspecified; I10 Essential (primary) hypertension; Z79.890 Hormone replacement therapy; Z83.3 Family history of diabetes mellitus; Z86.718 Personal history of other venous thrombosis and embolism; Z20.822 Contact with and (suspected) exposure to COVID-19; Z79.01 Long term (current) use of anticoagulants; Z79.1 Long term (current) use of non-steroidal anti-inflammatories (NSAID); Z79.82 Long term (current) use of aspirin; Z79.84 Long term (current) use of oral hypoglycemic drugs; Z79.899 Other long term (current) drug therapy; Z86.73 Personal history of transient ischemic attack (TIA), and cerebral infarction without residual deficits; Z87.440 Personal history of urinary (tract) infections; G90.1 Familial dysautonomia [Riley-Day]; Z99.3 Dependence on wheelchair; Z82.49 Family history of ischemic heart disease and other diseases of the circulatory system; Y84.8 Other medical procedures as the cause of abnormal reaction of the patient, or of later complication, without mention of misadventure at the time of the procedure; Z91.048 Other nonmedicinal substance allergy status; Z86.14 Personal history of Methicillin resistant Staphylococcus aureus infection; Z90.49 Acquired absence of other specified parts of digestive tract; Z88.2 Allergy status to sulfonamides; Z88.8 Allergy status to other drugs, medicaments and biological substances
CPT/HCPCS: 36415; 71045; 80048; 80202; 81001; 82565; 83605; 84145; 85025; 86140; 87040; 87070; 87205; 87636; 94640; 96365; 96366; 96375; 99285

== ENCOUNTER → 2023-09-14 | Outpatient (CLI) | payer MEDICARE, OTHER ==
--- NOTE | 2023-09-14 15:56 | P.PN ---
Subjective DATE: 09/14/2023 FOLLOW UP VISIT. Patient with obstructive sleep apnea hypopnea syndrome return to sleep center for follow-up visit. Information from previous visit have been reviewed. Patient is using PAP equipment every night for the whole night, getting PAP supplies in time. The patient does not have significant problems with the mask, PAP unit and humidification. Stirling sleepiness scale is increased to 15. I checked information from PAP unit. PAP unit pressure 5-15, average 10.0 cm H2O. Usage is 90 % for more then 4 hours, average 8.0 hours per night. Leak is perfect, 1.2 l/m. Apnea Hypopnea Index is 0.4, which is normal. MEDICATIONS:1. . Actos 45 mg once a day 2. , Clonidine 0.1 mg at bedtime 3. , Famotidine 40 mg at bedtime 4. Gabapentin 400 mg 4 times a day 5. Glipizide 10 mg once a day 6. Januvia 100 mg once a day 7. , Levothyroxine 100 g once a day 8. . Gardners 300 mg 3 tablets a day During physical exam: GENERAL: A pleasant patient without any distress. VITAL SIGNS: BP 110/77, HR , 74, RR 16 , weight 245, temperature 98.4, oxygen saturation at room air, 99 % . HEENT: PERRLA, EOMI.low position of soft palate, Mallapati 4 . NECK: Supple. No JVD. LUNGS: Clear to percussion and to auscultation. Good air exchange. No wheezing or rhonchi. HEART: S1, S2 regular. ABDOMEN: Soft and nontender.[] EXTREMITIES: No clubbing or cyanosis. GIS MANAGER: Awake, alert, and oriented x3. Patient is on wheelchair. Impressions: 1. Obstructive sleep apnea-hypopnea syndrome. Patient demonstrated great compliance with treatment, benefiting from treatment. 2. Narcolepsy type I, confirmed by multiple sleep latency test with 3 sleep onset REM periods. 3. Lupus erythematosus. 4. . Diabetes mellitus. 5. , History of DVT and stroke. 6. History of Emily thyroiditis, hypothyroidism. 7. , History of polycystic ovary syndrome. 8. , History of migraines. 9. . History of idiopathic intracranial hypertension. 10. , History of pernicious anemia. 11., History of asthma. 12. History of bipolar disorder, anxiety and PTSD. 13. History of GERD Plan: 1. Continue using PAP equipment every night for the whole night. 2. To change air filter at least 1-2 times per month. 3. PAP unit should stay lower then position of the head. 4. Advised patient to remove all remaining water from humidifier canister daily and make it dry after each usage. Refill canister with fresh distilled water before each usage. 5. Sleep hygiene with regular time in bed for at least 8 hours. 6. Precautions related to driving. No driving if feel any sleepiness. 7. I will maintain prescription for PAP supplies including mask, tube, filters. 8. Follow up visit in 6 months or earlier if patient has any problems. 9. Watching weight. Thank you very much for allowing me to participate in the management of your patient. Mateo Schilling MD, PhD, FAASM. Diplomat of [place] [employer], Sleep Medicine Board by [place] [employer] [facility] [place]
== END ==
LOC: 3 N SLEEP 15:15
PROVIDERS: ATTEND Internal Medicine
DX: G47.33 Obstructive sleep apnea (adult) (pediatric) (principal); G47.419 Narcolepsy without cataplexy; E06.3 Autoimmune thyroiditis; E11.9 Type 2 diabetes mellitus without complications; E28.2 Polycystic ovarian syndrome; F31.9 Bipolar disorder, unspecified; J45.909 Unspecified asthma, uncomplicated; K21.9 Gastro-esophageal reflux disease without esophagitis; L93.0 Discoid lupus erythematosus; G93.2 Benign intracranial hypertension; F41.9 Anxiety disorder, unspecified; F43.10 Post-traumatic stress disorder, unspecified; G43.909 Migraine, unspecified, not intractable, without status migrainosus; Z79.84 Long term (current) use of oral hypoglycemic drugs; Z79.890 Hormone replacement therapy; Z79.899 Other long term (current) drug therapy; Z86.718 Personal history of other venous thrombosis and embolism; Z86.73 Personal history of transient ischemic attack (TIA), and cerebral infarction without residual deficits; Z99.89 Dependence on other enabling machines and devices; Z91.018 Allergy to other foods; Z88.2 Allergy status to sulfonamides; Z88.8 Allergy status to other drugs, medicaments and biological substances; Z91.010 Allergy to peanuts; Z88.1 Allergy status to other antibiotic agents; Z91.048 Other nonmedicinal substance allergy status; Z79.51 Long term (current) use of inhaled steroids; Z79.85 Long-term (current) use of injectable non-insulin antidiabetic drugs
CPT/HCPCS: 99212

== ENCOUNTER 2023-10-17 06:59 | Inpatient (IN) | payer MEDICARE, OTHER ==
--- NOTE | 2023-10-17 07:05 | ED ---
General Adult HPI - General Source: patient, RN notes reviewed Mode of arrival: wheelchair Limitations: no limitations <Omar Shaw - Last Filed: 10/17/23 07:04> - General Source: patient, RN notes reviewed Mode of arrival: wheelchair Limitations: no limitations <Sunny Grier - Last Filed: 10/17/23 13:57> - General Stated complaint: Port infection Time Seen by Provider: 10/17/23 07:04 - History of Present Illness Initial comments: 43-year-old female presents emergency Department with chief complaint of possible poor infection. Patient states she has left-sided chest port states his been there for last 6 months she states that she was sent in by palliative care for possible infection as is draining pus around the edges. Patient states she has it for daily IV hydration and antiemetic. Patient denies any other asso ciated symptoms (Omar Shaw) Patient is a pleasant 43-year-old female presenting to the emergency department with concerns for fever. Patient has had fever for 10 days. Patient does have a port that she does axis daily. Patient states she uses this for daily Zofran and IV fluids secondary to history of mitochondrial disease. Patient states the last time she checked it there was pus that came out with that. No tenderness. No history of similar symptoms previously. Patient has had some diarrhea. Otherwise patient is having some fatigue and myalgias. (Sunny Grier) - Related Data Home Medications Medication Instructions Recorded Confirmed Levothyroxine Sodium [Synthroid] 100 mcg PO DAILY 01/16/19 06/13/23 Methenamine Hippurate 1 gm PO BID 07/12/19 06/13/23 Mirabegron [Myrbetriq] 25 mg PO DAILY 10/08/19 06/13/23 Promethazine [Phenergan] 25 mg PO TID PRN 11/30/19 06/13/23 Levothyroxine Sodium [Synthroid] 125 mcg PO MOTUWETH 12/28/19 06/13/23 Albuterol Inhaler [Ventolin Hfa 2 puff INHALATION RT-Q4H PRN 09/19/20 06/13/23 Inhaler] Dexlansoprazole [Dexilant] 60 mg PO DAILY 09/19/20 06/13/23 Galcanezumab-Gnlm [Emgality Pen] 120 mg SQ Q30D 09/19/20 06/13/23 Cyanocobalamin (Vitamin B-12) 1,000 mcg PO DAILY 06/01/21 06/13/23 [Vitamin B-12] Ezetimibe [Zetia] 10 mg PO HS 06/01/21 06/13/23 busPIRone HCL [Buspar] 30 mg PO BID 06/01/21 06/13/23 Baclofen [Lioresal] 20 mg PO QID 06/02/21 06/13/23 Fluticasone/Vilanterol [Breo 1 puff INHALATION RT-DAILY 09/27/21 06/13/23 Ellipta 100-25 Mcg Inhaler] Ondansetron Odt [Zofran ODT] 8 mg PO TID PRN 09/27/21 06/13/23 polyethylene glycoL 3350 [Miralax] 17 gm PO DAILY 09/27/21 06/13/23 Fluticasone Nasal Esmond [Flonase 1 spr EA NOSTRIL DAILY 04/26/22 06/13/23 Nasal Esmond] Rosanky Carbonate [Rosanky 300 mg PO TID 04/26/22 06/13/23 Carbonate ER] traZODone HCL 200 mg PO HS 04/26/22 06/13/23 Dicyclomine HCl 20 mg PO Q6H PRN 06/23/22 06/13/23 Prochlorperazine [Compro] 25 mg RECTAL Q8H PRN 06/23/22 06/13/23 Rimegepant Sulfate [Nurtec Odt] 75 mg PO DAILY PRN 06/23/22 06/13/23 cloNIDine HCL [Kapvay] 0.2 mg PO DAILY 06/23/22 06/13/23 tiZANidine HCL 2 mg PO DAILY PRN 06/23/22 06/13/23 HYDROcodone/APAP 7.5-325MG [[place] 1 tab PO Q8H PRN 10/07/22 06/13/23 7.5-325] Pioglitazone [Actos] 45 mg PO DAILY 10/07/22 06/13/23 Semaglutide [Ozempic] 2 mg SQ SA 10/07/22 06/13/23 cloNIDine HCL [Kapvay] 0.1 mg PO HS 10/07/22 06/13/23 glipiZIDE 10 mg PO AC-BRKFST 10/07/22 06/13/23 sitaGLIPtin [Januvia] 100 mg PO DAILY 10/07/22 06/13/23 Famotidine 40 mg PO HS 11/07/22 06/13/23 Metoprolol Succinate (ER) [Toprol 100 mg PO DAILY 11/07/22 06/13/23 XL] Phenazopyridine HCl [Uristat Ultra] 99.5 mg PO DAILY PRN 11/07/22 06/13/23 cloNIDine HCL [Catapres] 0.1 mg PO HS 12/15/22 06/13/23 diazePAM [Valium] 5 mg PO DAILY PRN 02/18/23 06/13/23 Meloxicam [Mobic] 15 mg PO DAILY 03/15/23 06/13/23 modafiniL [Provigil] 400 mg PO DAILY 03/15/23 06/13/23 Brexpiprazole [Rexulti] 2 mg PO HS 04/12/23 06/13/23 Butalbital/Aspirin/Caffeine 1 tab PO DAILY PRN 04/12/23 06/13/23 [Gsaxbk-Qfsqkmx-Pxpzmwih 50-325-40 mg] Diclofenac Sodium Gel [Voltaren 1% 4 gm TOPICAL QID PRN 04/12/23 06/13/23 Gel] Latanoprost [Latanoprost 0.005%] 1 drop BOTH EYES HS 04/12/23 06/13/23 Sodium Chloride 0.9% Solution 2,000 ml IV DAILY 04/12/23 06/13/23 Triamcinolone 0.5% Cream [Kenalog 1 applic TOPICAL BID PRN 04/12/23 06/13/23 0.5% Cream] Trimethoprim [Trimpex] 100 mg PO DAILY 04/12/23 06/13/23 Brexpiprazole [Rexulti] 1 mg PO DAILY 06/13/23 06/13/23 Dexmethylphenidate HCl [Focalin Xr] 20 mg PO DAILY 06/13/23 06/13/23 Gabapentin [Neurontin] 400 mg PO QID 06/13/23 06/13/23 Lactulose 10 - 20 gm PO BID PRN 06/13/23 06/13/23 Sucralfate [Carafate] 1 gm PO TID-W/MEALS 06/13/23 06/13/23 Previous Rx's Medication Instructions Recorded Fenofibrate [Lofibra] 160 mg PO HS tab 10/17/19 Rivaroxaban [Xarelto] 20 mg PO HS tab 10/17/19 Allergies Allergy/AdvReac Type Severity Reaction Status Date / Time peanut oil Allergy Severe Nausea & Verified 10/17/23 07:51 Vomiting,itching barium sulfate Allergy Anaphylaxis Verified 10/17/23 07:51 doxepin [Doxepin] Allergy Anaphylaxis Verified 10/17/23 07:51 ephedrine Allergy Chest Verified 10/17/23 07:51 Pain/tachycardia ertapenem [From Invanz] Allergy Rash/Hives- Verified 10/17/23 07:51 like a chemical burn peanut Allergy Anaphylaxis Verified 10/17/23 07:51 pseudoephedrine Allergy Chest Pain Verified 10/17/23 07:51 Sulfa (Sulfonamide Allergy Nausea & Verified 10/17/23 07:51 Antibiotics) Vomiting, DEHYDRATION sumatriptan [From Imitrex] Allergy affects Verified 10/17/23 07:51 vision-unable to see for hrs. doxycycline AdvReac Nausea & Verified 10/17/23 07:51 Vomiting & Diarrhea pseudoephedrine HCl AdvReac chest Verified 10/17/23 07:51 [From Sudafed] pain/tachycardia sulfamethoxazole AdvReac Nausea & Verified 10/17/23 07:51 [From Bactrim] Vomiting Adhesive Tape AdvReac Rash/Hives Uncoded 10/17/23 07:51 Review of Systems ROS Other: All systems not noted in ROS Statement are negative. <Omar Shaw - Last Filed: 10/17/23 07:04> ROS Other: All systems not noted in ROS Statement are negative. Constitutional: Reports: as per HPI, fever, chills Eyes: Denies: eye pain ENT: Denies: ear pain Respiratory: Denies: cough Cardiovascular: Denies: chest pain Endocrine: Reports: fatigue Gastrointestinal: Reports: diarrhea. Denies: abdominal pain Genitourinary: Denies: dysuria Musculoskeletal: Denies: back pain Skin: Denies: rash <Sunny Grier - Last Filed: 10/17/23 13:57> ROS Statement: Those systems with pertinent positive or pertinent negative responses have been documented in the HPI. 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 Lymphedema left arm due to DVTs, avoid use of left arm for BP, IV, blood draws. Hx Vtach, pituitary microadenoma, patent foramen ovale, narcolepsy, gastropareis, hx orthostatic hypotension/syncope, migraines with hemiplegia, pernicious anemia, polycystic ovarian syndrome, neuropathy bilateral legs/feet/arms, uses wheelchair, able to transfer and walk few steps. CPAP use. Lupus anticoagulation syndrome. Enlarged liver. History of Any Multi-Drug Resistant Organisms: ESBL, MRSA Date of last positivie culture/infection: 12/20/22 ESBL E.coli; 03/09/17 MRSA MDRO Source:: Urine-ESBL; Left Arm-MRSA Past Surgical History: Cholecystectomy, Uterine Ablation Additional Past Surgical History / Comment(s): Colonscopy/EGD, GERSON, PORT-A-CATH INSERTION X3, PICC line insertion and later removed. Past Anesthesia/Blood Transfusion Reactions: Previous Problems w/ Anesthesia, Motion Sickness Additional Past Anesthesia/Blood Transfusion Reaction / Comment(s): Patient states difficult to sedate. Hx blood transfusions with no issues. Past Psychological History: Anxiety, Bipolar, Depression, PTSD Smoking Status: Never smoker Past Alcohol Use History: Rare Past Drug Use History: None Reported - Past Family History Brother(s) Family Medical History: Diabetes Mellitus, Hyperlipidemia, Hypertension Additional Family Medical History / Comment(s): Patient states she has 1 brother with no major medical problems. Father History Unknown: Yes Family Medical History: Diabetes Mellitus, Hyperlipidemia, Hypertension Mother Family Medical History: CVA/TIA, Diabetes Mellitus, Deep Vein Thrombosis (DVT) Additional Family Medical History / Comment(s): Antiphospholipid antibody syndrome, Lupus, dementia. Multiple DVT's and Strokes. <Omar Shaw - Last Filed: 10/17/23 07:04> General Exam <Omar Shaw - Last Filed: 10/17/23 07:04> Limitations: no limitations General appearance: alert, in no apparent distress Head exam: Present: normocephalic Eye exam: Present: normal appearance Neck exam: Present: normal inspection Respiratory exam: Present: normal lung sounds bilaterally Cardiovascular Exam: Present: regular rate, normal rhythm GI/Abdominal exam: Present: soft. Absent: tenderness Extremities exam: Present: normal inspection Neurological exam: Present: alert Psychiatric exam: Present: normal affect, normal mood Skin exam: Present: normal color <Sunny Grier - Last Filed: 10/17/23 13:57> - General Exam Comments Initial Comments: Visual Physical Exam Vital signs reviewed General: Well-appearing, nontoxic, no acute distress. Head: Normocephalic, atraumatic Eyes: PERRLA, EOMI ENT: Airway patent Chest: Nonlabored breathing Skin: No visual rash, normal skin tone Neuro: Alert and oriented 3 Musculoskeletal: No gross abnormalities (Omar Shaw) Course Vital Signs 10/17/23 07:49 Temperature 99.2 F Pulse Rate 72 Respiratory 18 Rate Blood Pressure 137/95 O2 Sat by Pulse 96 Oximetry Medical Decision Making <Omar Shaw - Last Filed: 10/17/23 07:04> - Lab Data Result diagrams: 10/17/23 07:47 10/17/23 07:47 <Sunny Grier - Last Filed: 10/17/23 13:57> - Medical Decision Making I completed the quick note portion of this chart signed Omar Shaw PA-C (Omar Shaw) Was pt. sent in by a medical professional or institution (PERFECTO Romero, RIPSAW OPERATOR, urgent care, hospital, or fpc...) When possible be specific @ -No Did you speak to anyone other than the patient for history (EMS, parent, family, police, friend...)? What history was obtained from this source @ -No Did you review nursing and triage notes (agree or disagree)? Why? @ -I reviewed and agree with nursing and triage notes Were old charts reviewed (outside hosp., previous admission, EMS record, old EKG, old radiological studies, urgent care reports/EKG's, fpc records)? Report findings @ -No old charts were reviewed Differential Diagnosis (chest pain, altered mental status, abdominal pain women, abdominal pain men, vaginal bleeding, weakness, fever, dyspnea, syncope, headache, dizziness, GI bleed, back pain, seizure, CVA, palpatations, mental health, musculoskeletal)? @ -Differential Fever: Pneumonia, viral URI, endocarditis, myocarditis, pericarditis, otitis, sinusitis, peritonsillar Abscess, retropharyngeal Abscess, epiglottitis, peritonitis, appendicitis, Yoli cystitis, diverticulitis, hepatitis, colitis, UTI, PID, TOA, pyelonephritis, prostatitis, epididymitis, meningitis, encephalitis, pulmonary embolism, CVA, thyroid storm, pancreatitis, adrenal crisis, cavernous sinus thrombosis, this is not meant to be an all-inclusive list. EKG interpreted by me (3pts min.). @ -As above X-rays interpreted by me (1pt min.). @ -Chest x-ray does not reveal any acute abnormality CT interpreted by me (1pt min.). @ -None done U/S interpreted by me (1pt. min.). @ -None done What testing was considered but not performed or refused? (CT, X-rays, U/S, labs)? Why? @ -None What meds were considered but not given or refused? Why? @ -None Did you discuss the management of the patient with other professionals (professionals i.e. DrCheri, PA, RIPSAW OPERATOR, lab, RT, psych nurse, social worker clinical, emergency communications officer, teacher, peace officer, heel caser)? Give summary @ -Case was discussed with Dr. Stokes who does agree patient should be admitted with ID consult. He is covering for Dr. Tabares. Was smoking cessation discussed for >3mins.? @ -No Was critical care preformed (if so, how long)? @ -No Were there social determinants of health that impacted care today? How? (Homelessness, low income, unemployed, alcoholism, drug addiction, transportation, low edu. Level, literacy, decrease access to med. care, [facility], rehab)? @ -No Was there de-escalation of care discussed even if they declined (Discuss DNR or withdrawal of care, Hospice)? DNR status @ -No What co-morbidities impacted this encounter? (DM, HTN, Smoking, COPD, CAD, Cancer, CVA, ARF, Chemo, Hep., AIDS, mental health diagnosis, sleep apnea, morbid obesity)? @ -None Was patient admitted / discharged? Hospital course, mention meds given and route, prescriptions, significant lab abnormalities, going to OR and other pertinent info. @ -Is reevaluated and updated. Patient will be admitted with IV antibiotics and infectious disease consult. Cultures pending. Admission orders written Undiagnosed new problem with uncertain prognosis? @ -No Drug Therapy requiring intensive monitoring for toxicity (Heparin, Nitro, Insulin, Cardizem)? @ -No Were any procedures done? @ -No Diagnosis/symptom? @ -Fever of unknown origin Acute, or Chronic, or Acute on Chronic? @ -Acute Uncomplicated (without systemic symptoms) or Complicated (systemic symptoms)? @ -default Side effects of treatment? @ -No Exacerbation, Progression, or Severe Exacerbation? @ -No Poses a threat to life or bodily function? How? (Chest pain, [place], [place], pneumonia, PE, COPD, DKA, ARF, appy, cholecystitis, CVA, Diverticulitis, Homicidal, Suicidal, threat to staff... and all critical care pts) @ -No (Sunny Grier) - Lab Data Lab Results 10/17/23 10/17/23 10/17/23 Range/Units 07:47 07:47 07:47 WBC 8.1 (3.8-10.6) k/uL RBC 4.02 (3.80-5.40) m/uL Hgb 11.9 (11.4-16.0) gm/dL Hct 36.3 (34.0-46.0) % MCV 90.4 (80.0-100.0) fL MCH 29.6 (25.0-35.0) pg MCHC 32.8 (31.0-37.0) g/dL RDW 14.0 (11.5-15.5) % Plt Count 299 (150-450) k/uL MPV 7.9 Neutrophils % 78 % Lymphocytes % 13 % Monocytes % 5 % Eosinophils % 2 % Basophils % 0 % Neutrophils # 6.4 (1.3-7.7) k/uL Lymphocytes # 1.1 (1.0-4.8) k/uL Monocytes # 0.4 (0-1.0) k/uL Eosinophils # 0.2 (0-0.7) k/uL Basophils # 0.0 (0-0.2) k/uL Sodium 138 (137-145) mmol/L Potassium 5.1 (3.5-5.1) mmol/L Chloride 105 (98-107) mmol/L Carbon Dioxide 22 (22-30) mmol/L Anion Gap 11 mmol/L BUN 13 (7-17) mg/dL Creatinine 0.83 (0.52-1.04) mg/dL Est GFR (CKD-EPI)AfAm >90 (>60 ml/min/1.73 sqM) Est GFR (CKD-EPI)NonAf 88 (>60 ml/min/1.73 sqM) Glucose 116 H (74-99) mg/dL Plasma Lactic Acid Joce 1.2 (0.7-2.0) mmol/L Calcium 10.2 (8.4-10.2) mg/dL Total Bilirubin 0.3 (0.2-1.3) mg/dL AST 28 (14-36) U/L ALT 24 (4-34) U/L Alkaline Phosphatase 36 L (38-126) U/L Total Protein 7.0 (6.3-8.2) g/dL Albumin 4.4 (3.5-5.0) g/dL Urine Color Urine Appearance (Clear) Urine pH (5.0-8.0) Ur Specific Scott (1.001-1.035) Urine Protein (Negative) Urine Glucose (UA) (Negative) Urine Ketones (Negative) Urine Blood (Negative) Urine Nitrite (Negative) Urine Bilirubin (Negative) Urine Urobilinogen (<2.0) mg/dL Ur Leukocyte Esterase (Negative) Influenza Type A (PCR) (Not Detectd) Influenza Type B (PCR) (Not Detectd) RSV (PCR) (Not Detectd) SARS-CoV-2 (PCR) (Not Detectd) 10/17/23 10/17/23 Range/Units 09:50 11:33 WBC (3.8-10.6) k/uL RBC (3.80-5.40) m/uL Hgb (11.4-16.0) gm/dL Hct (34.0-46.0) % MCV (80.0-100.0) fL MCH (25.0-35.0) pg MCHC (31.0-37.0) g/dL RDW (11.5-15.5) % Plt Count (150-450) k/uL MPV Neutrophils % % Lymphocytes % % Monocytes % % Eosinophils % % Basophils % % Neutrophils # (1.3-7.7) k/uL Lymphocytes # (1.0-4.8) k/uL Monocytes # (0-1.0) k/uL Eosinophils # (0-0.7) k/uL Basophils # (0-0.2) k/uL Sodium (137-145) mmol/L Potassium (3.5-5.1) mmol/L Chloride (98-107) mmol/L Carbon Dioxide (22-30) mmol/L Anion Gap mmol/L BUN (7-17) mg/dL Creatinine (0.52-1.04) mg/dL Est GFR (CKD-EPI)AfAm (>60 ml/min/1.73 sqM) Est GFR (CKD-EPI)NonAf (>60 ml/min/1.73 sqM) Glucose (74-99) mg/dL Plasma Lactic Acid Joce (0.7-2.0) mmol/L Calcium (8.4-10.2) mg/dL Total Bilirubin (0.2-1.3) mg/dL AST (14-36) U/L ALT (4-34) U/L Alkaline Phosphatase (38-126) U/L Total Protein (6.3-8.2) g/dL Albumin (3.5-5.0) g/dL Urine Color Colorless Urine Appearance Clear (Clear) Urine pH 6.5 (5.0-8.0) Ur Specific Scott 1.011 (1.001-1.035) Urine Protein Negative (Negative) Urine Glucose (UA) Negative (Negative) Urine Ketones Negative (Negative) Urine Blood Negative (Negative) Urine Nitrite Negative (Negative) Urine Bilirubin Negative (Negative) Urine Urobilinogen <2.0 (<2.0) mg/dL Ur Leukocyte Esterase Negative (Negative) Influenza Type A (PCR) Not Detected (Not Detectd) Influenza Type B (PCR) Not Detected (Not Detectd) RSV (PCR) Not Detected (Not Detectd) SARS-CoV-2 (PCR) Not Detected (Not Detectd) Disposition <Omar Shaw - Last Filed: 10/17/23 07:04> Is patient prescribed a controlled substance at d/c from ED?: No Time of Disposition: 13:57 <Sunny Grier - Last Filed: 10/17/23 13:57> Clinical Impression: Fever, unknown origin Disposition: ADMITTED IP TO THIS HOSP Referrals: René Carrillo MD [Primary Care Provider] - 1-2 days
[2023-10-17 10:35] LABS: Basophils % (A) 0 %; Eosinophils # (A) 0.2 k/uL (0-0.7); Eosinophils % (A) 2 %; HCT 36.3 % (34.0-46.0); HGB 11.9 gm/dL (11.4-16.0); Lymphocytes # (A) 1.1 k/uL (1.0-4.8); Lymphocytes % (A) 13 %; MCH 29.6 pg (25.0-35.0); MCHC 32.8 g/dL (31.0-37.0); MCV 90.4 fL (80.0-100.0); Mean Platelet Volume 7.9; Monocytes # (A) 0.4 k/uL (0-1.0); Monocytes % (A) 5 %; Neutrophils # (A) 6.4 k/uL (1.3-7.7); Neutrophils % (A) 78 %; Platelet Count 299 k/uL (150-450); RBC 4.02 m/uL (3.80-5.40); WBC 8.1 k/uL (3.8-10.6)
--- NOTE | 2023-10-17 10:42 | XR ---
EXAMINATION TYPE: XR chest 2V DATE OF EXAM: 10/17/2023 COMPARISON: Prior chest x-ray June 13, 2023 HISTORY: Fever. TECHNIQUE: Frontal and lateral views of the chest are obtained. FINDINGS: Stable left subclavian Mediport catheter. The lung volumes redemonstrated. There is no foc al air space opacity, pleural effusion, or pneumothorax seen. The cardiac silhouette size is stable and within normal limits. The osseous structures are intact. IMPRESSION: No acute pulmonary infiltrate. No significant change from most recent prior.
[2023-10-17 10:48] LABS: ALT 24 U/L (4-34); AST 28 U/L (14-36); African American GFR (CKD) >90 (>60 ml/min/1.73 sqM); Albumin 4.4 g/dL (3.5-5.0); Alkaline Phosphatase 36 U/L (38-126); Anion Gap 11 mmol/L; Blood Urea Nitrogen 13 mg/dL (7-17); Calcium 10.2 mg/dL (8.4-10.2); Carbon Dioxide 22 mmol/L (22-30); Chloride 105 mmol/L (98-107); Glucose 116 mg/dL (74-99); Non-African American GFR(CKD) 88 (>60 ml/min/1.73 sqM); Potassium 5.1 mmol/L (3.5-5.1); Sodium 138 mmol/L (137-145); Total Bilirubin 0.3 mg/dL (0.2-1.3)
[2023-10-17 11:10] LABS: Appearance,Urine Clear (Clear); Bilirubin,Urine Negative (Negative); Blood,Urine Negative (Negative); Color,Urine Colorless; Glucose,Urine (UA) Negative (Negative); Ketones,Urine Negative (Negative); Leukocyte Esterase,Urine Negative (Negative); Nitrite,Urine Negative (Negative); PH, Urine 6.5 (5.0-8.0); Protein,Urine Negative (Negative); Specific Gravity,Urine 1.011 (1.001-1.035); Urobilinogen,Urine <2.0 mg/dL (<2.0)
[2023-10-17] MEDS ORDERED: NALOXONE 0.4 MG/ML 1 ML VIAL IV PRN (13:59)
[2023-10-17] MEDS ORDERED: ACETAMINOPHEN TAB 325 MG TAB PO PRN (13:59)
[2023-10-17] MEDS ORDERED: VANCOMYCIN IV PER PHARMACY 1 EACH MISC MISCELLANE PRN (14:11)
[2023-10-17] MEDS ORDERED: VANCOMYCIN 1,750 MG in SODIUM CHLORIDE 0.9% 500 ML 500 ML IVPB ONE (14:30)
[2023-10-17] MEDS: SODIUM CHLORIDE 0.9% 1,000 ML IV SCH (14:51)
[2023-10-17] MEDS ORDERED: ALBUTEROL NEBULIZED 2.5 MG/3 ML INHALATION PRN (15:04)
[2023-10-17] MEDS ORDERED: diazePAM 5 MG TAB PO PRN (15:04)
[2023-10-17] MEDS ORDERED: DICYCLOMINE 20 MG TAB PO PRN (15:04)
[2023-10-17] MEDS ORDERED: MAG HYDROX/AL HYDROX/SIMETH 30 ML CUP PO PRN (15:04)
[2023-10-17] MEDS ORDERED: DEXTROSE 50% SYRINGE 50 ML IVP PRN ×2 (15:14)
--- NOTE | 2023-10-17 15:24 | P.HPIM ---
History of Present Illness H&P Date: 10/17/23 History of Presenting Illness: Patient is a very pleasant 43-year-old female with a past medical history of mitochondrial metabolism disorder, hypertension, hyperlipidemia, lupus, Emily's thyroiditis, ppv-sedmsfk-ikqtzsfaf diabetes mellitus, obstructive sleep apnea CPAP dependent nightly, DVT on anticoagulation, anxiety, bipolar, and depression. She presented to the emergency department secondary to reports of cyclical fevers 1.5 weeks. Patient reports she is currently on palliative care and has a port for IV fluid administration and administration of antibiotics. She reports she has been feeling fatigue with cyclical fevers as high as 102.0F, nausea, diarrhea, and a stuffy nose times one and half weeks. Patient reports she just assumed she had the flu but reports yesterday when she went to deaccess her port there was a significant amount of purulent drainage that came out. Patient denies having any dizziness, lightheadedness, changes in vision or hearing, chest pain or palpitations, shortness of breath, or experiencing any numbness/tingling/weakness in her extremity. Patient reports she is basically wheelchair bound with the exception of ambulating to and from wheelchair to bed or chair with minimal distances. Patient reports she has been wheelchair-bound 1 year secondary to her mitochondrial metabolism disorder and chronic fatigue and pain. She underwent full evaluation the emergency department. Labs completed and reviewed. CBC and BMP were unremarkable. Liver profile normal findings. Urinalysis negative for infection. Influenza A, influenza B, RSV, and Covid PCR were all negative. Chest x-ray negative for acute process. Patient admitted under the services of consultation to infectious disease. Review of systems: Pertinent positives and negatives as discussed in HPI, a complete review of systems was performed and all other systems are negative. Physical exam: Vital signs reviewed and stable. General: Nontoxic, no distress and appears stated age. Derm: Skin warm and dry, normal coloration for ethnicity. Head: Atraumatic, normocephalic and symmetric. Eyes: EOMs intact, no lid lag, and anicteric sclera Mouth: no lip lesions, mucus membranes moist Cardiovascular: regular rate and rhythm with normal S1S2, no murmur, positive posterior tibial pulses bilaterally, and cap refill < 2 seconds. Lungs: Respirations even, regular, and unlabored on room air. Lungs CTA bilaterally, no rhonchi, no rales, no wheezing, and no accessory muscle usage. Abdominal: soft, nontender to palpation, no guarding, no appreciable organomegaly Ext: ROM intact. No gross muscle atrophy, no edema, no contractures Neuro: Speech clear, face symmetrical and CN II-XII grossly intact with no noted focal neuro deficits Psych: Alert and oriented to person, place, time, and situation. Appropriate and pleasant affect. Assessment and Plan of Care: Purulent drainage from port Subjective fevers accompanied by nausea and diarrhea History of mitochondrial metabolism disorder Mxo-oofvelc-usubmhaxh diabetes mellitus Hypertension Hyperlipidemia Hypothyroidism Lupus -Blood cultures obtained, will follow-up with results -Patient started on broad-spectrum antibiotics with vancomycin -Consult placed to infectious disease. -Telemetry monitoring. -Home medications reviewed and reordered. Data and imaging reviewed: -Labs completed and reviewed. CBC and BMP were unremarkable. Liver profile normal findings. Urinalysis negative for infection. Influenza A, influenza B, RSV, and Covid PCR were all negative. -Chest x-ray negative for acute process. -Medicines reviewed and stable. Blood pressure 137/95, heart rate 72, respirat ory rate 18, temp 99.2F, SpO2 of 96% on room air. Patient admitted under the services for fever of unknown origin with consultation to infectious disease. CODE STATUS: full code DVT prophylaxis: Xarelto Anticipated discharge date: Clinical course to determine Anticipated discharge place: Clinical course to determine Patient was seen independently by Nurse Practitioner. This document was prepared using [employer] dictation software. Please allow for errors in email marketing manager while rare they do occur. rBuce Manzo NP rendered care for this patient independently, reviewed the findi ngs and plan as documented in the note above. I did not physically speak with or examine the patient on this date. 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 Lymphedema left arm due to DVTs, avoid use of left arm for BP, IV, blood draws. Hx Vtach, pituitary microadenoma, patent foramen ovale, narcolepsy, gastropareis, hx orthostatic hypotension/syncope, migraines with hemiplegia, pernicious anemia, polycystic ovarian syndrome, neuropathy bilateral legs/feet/arms, uses wheelchair, able to transfer and walk few steps. CPAP use. Lupus anticoagulation syndrome. Enlarged liver. History of Any Multi-Drug Resistant Organisms: ESBL, MRSA Date of last positivie culture/infection: 12/20/22 ESBL E.coli; 03/09/17 MRSA MDRO Source:: Urine-ESBL; Left Arm-MRSA Past Surgical History: Cholecystectomy, Uterine Ablation Additional Past Surgical History / Comment(s): Colonscopy/EGD, GERSON, PORT-A-CATH INSERTION X3, PICC line insertion and later removed. Past Anesthesia/Blood Transfusion Reactions: Previous Problems w/ Anesthesia, Motion Sickness Additional Past Anesthesia/Blood Transfusion Reaction / Comment(s): Patient states difficult to sedate. Hx blood transfusions with no issues. Past Psychological History: Anxiety, Bipolar, Depression, PTSD Smoking Status: Never smoker Past Alcohol Use History: Rare Past Drug Use History: None Reported - Past Family History Brother(s) Family Medical History: Diabetes Mellitus, Hyperlipidemia, Hypertension Additional Family Medical History / Comment(s): Patient states she has 1 brother with no major medical problems. Father History Unknown: Yes Family Medical History: Diabetes Mellitus, Hyperlipidemia, Hypertension Mother Family Medical History: CVA/TIA, Diabetes Mellitus, Deep Vein Thrombosis (DVT) Additional Family Medical History / Comment(s): Antiphospholipid antibody syndrome, Lupus, dementia. Multiple DVT's and Strokes. Medications and Allergies Home Medications Medication Instructions Recorded Confirmed Type Levothyroxine Sodium [Synthroid] 100 mcg PO DAILY 01/16/19 10/17/23 History Methenamine Hippurate 1 gm PO BID 07/12/19 10/17/23 History Mirabegron [Myrbetriq] 25 mg PO DAILY 10/08/19 10/17/23 History Fenofibrate [Lofibra] 160 mg PO HS tab 10/17/19 10/17/23 Rx Rivaroxaban [Xarelto] 20 mg PO HS tab 10/17/19 10/17/23 Rx Promethazine [Phenergan] 25 mg PO TID PRN 11/30/19 10/17/23 History Levothyroxine Sodium [Synthroid] 125 mcg PO MOTUWETH 12/28/19 10/17/23 History Albuterol Inhaler [Ventolin Hfa 2 puff INHALATION RT-Q4H PRN 09/19/20 10/17/23 History Inhaler] Dexlansoprazole [Dexilant] 60 mg PO DAILY 09/19/20 10/17/23 History Galcanezumab-Gnlm [Emgality Pen] 120 mg SQ Q30D 09/19/20 10/17/23 History Cyanocobalamin (Vitamin B-12) 1,000 mcg PO DAILY 06/01/21 10/17/23 History [Vitamin B-12] Ezetimibe [Zetia] 10 mg PO HS 06/01/21 10/17/23 History busPIRone HCL [Buspar] 30 mg PO BID 06/01/21 10/17/23 History Baclofen [Lioresal] 20 mg PO QID 06/02/21 10/17/23 History Fluticasone/Vilanterol [Breo 1 puff INHALATION RT-DAILY 09/27/21 10/17/23 History Ellipta 100-25 Mcg Inhaler] Ondansetron Odt [Zofran ODT] 8 mg PO TID PRN 09/27/21 10/17/23 History polyethylene glycoL 3350 [Miralax] 17 gm PO DAILY PRN 09/27/21 10/17/23 History Fluticasone Nasal [place] [Flonase 2 spr EA NOSTRIL BID 04/26/22 10/17/23 History Nasal [place]] [place] Carbonate [[place] 300 mg PO TID 04/26/22 10/17/23 History Carbonate ER] traZODone HCL 200 mg PO HS 04/26/22 10/17/23 History Dicyclomine HCl 20 mg PO Q6H PRN 06/23/22 10/17/23 History Prochlorperazine [Compro] 25 mg RECTAL Q8H PRN 06/23/22 10/17/23 History Rimegepant Sulfate [Nurtec Odt] 75 mg PO DAILY PRN 06/23/22 10/17/23 History cloNIDine HCL [Kapvay] 0.2 mg PO DAILY 06/23/22 10/17/23 History tiZANidine HCL 2 mg PO DAILY PRN 06/23/22 10/17/23 History HYDROcodone/APAP 7.5-325MG [[place] 1 tab PO Q8H PRN 10/07/22 10/17/23 History 7.5-325] Pioglitazone [Actos] 45 mg PO DAILY 10/07/22 10/17/23 History Semaglutide [Ozempic] 2 mg SQ SA 10/07/22 10/17/23 History cloNIDine HCL [Kapvay] 0.1 mg PO HS 10/07/22 10/17/23 History glipiZIDE 10 mg PO AC-BRKFST 10/07/22 10/17/23 History sitaGLIPtin [Januvia] 100 mg PO DAILY 10/07/22 10/17/23 History Famotidine 40 mg PO HS 11/07/22 10/17/23 History Metoprolol Succinate (ER) [Toprol 100 mg PO DAILY 11/07/22 10/17/23 History XL] Phenazopyridine HCl [Uristat Ultra] 99.5 mg PO DAILY PRN 11/07/22 10/17/23 History cloNIDine HCL [Catapres] 0.1 mg PO HS 12/15/22 10/17/23 History diazePAM [Valium] 5 mg PO DAILY PRN 02/18/23 10/17/23 History Meloxicam [Mobic] 15 mg PO DAILY 03/15/23 10/17/23 History modafiniL [Provigil] 400 mg PO DAILY 03/15/23 10/17/23 History Butalbital/Aspirin/Caffeine 1 tab PO TID PRN 04/12/23 10/17/23 History [Jabqex-Sfftjmb-Opjkoczy 50-325-40 mg] Diclofenac Sodium Gel [Voltaren 1% 4 gm TOPICAL QID PRN 04/12/23 10/17/23 History Gel] Latanoprost [Latanoprost 0.005%] 1 drop BOTH EYES HS 04/12/23 10/17/23 History Sodium Chloride 0.9% Solution 2,000 ml IV DAILY 04/12/23 10/17/23 History Triamcinolone 0.5% Cream [Kenalog 1 applic TOPICAL BID PRN 04/12/23 10/17/23 History 0.5% Cream] Trimethoprim [Trimpex] 100 mg PO DAILY 04/12/23 10/17/23 History Brexpiprazole [Rexulti] 2 mg PO BID 06/13/23 10/17/23 History Lactulose 10 - 20 gm PO BID PRN 06/13/23 10/17/23 History Sucralfate [Carafate] 1 gm PO TID-W/MEALS PRN 06/13/23 10/17/23 History Ammonium Lactate Lotion 1 applic TOPICAL DAILY 10/17/23 10/17/23 History [Lac-Hydrin 12% Lotion] Dexmethylphenidate HCl [Focalin Xr] 10 mg PO DAILY 10/17/23 10/17/23 History Gabapentin 600 mg PO TID 10/17/23 10/17/23 History Glycopyrrolate [Robinul Forte] 2 mg PO TID 10/17/23 10/17/23 History Ketoconazole 2% Shampoo [Nizoral] 1 applic TOPICAL SUWE 10/17/23 10/17/23 History Linaclotide [Linzess] 72 mcg PO DAILY 10/17/23 10/17/23 History Loratadine [Claritin] 10 mg PO DAILY 10/17/23 10/17/23 History Mag Hydrox/Al Hydrox/Simeth 30 ml PO QID PRN 10/17/23 10/17/23 History [Maalox] Metoclopramide [Reglan] 10 mg PO ACHS PRN 10/17/23 10/17/23 History Tsi-Cnyk-Ihszo Acid 1 cap PO W/BRKFST 10/17/23 10/17/23 History [-U Capsule (formulary)] Rizatriptan Benzoate [Rizatriptan] 5 mg PO BID PRN 10/17/23 10/17/23 History Silver Sulfadiazine [Silver 1 applic TOPICAL BID PRN 10/17/23 10/17/23 History Sulfadiazine 1%] fluvoxaMINE MALEATE [Luvox] 25 mg PO HS 10/17/23 10/17/23 History predniSONE 5 mg PO W/BRKFST 10/17/23 10/17/23 History Allergies Allergy/AdvReac Type Severity Reaction Status Date / Time peanut oil Allergy Severe Nausea & Verified 10/17/23 14:42 Vomiting,itching barium sulfate Allergy Anaphylaxis Verified 10/17/23 14:42 doxepin [Doxepin] Allergy Anaphylaxis Verified 10/17/23 14:42 ephedrine Allergy Chest Verified 10/17/23 14:42 Pain/tachycardia ertapenem [From Invanz] Allergy Rash/Hives- Verified 10/17/23 14:42 like a chemical burn peanut Allergy Anaphylaxis Verified 10/17/23 14:42 pseudoephedrine Allergy Chest Pain Verified 10/17/23 14:42 Sulfa (Sulfonamide Allergy Nausea & Verified 10/17/23 14:42 Antibiotics) Vomiting, DEHYDRATION sumatriptan [From Imitrex] Allergy affects Verified 10/17/23 14:42 vision-unable to see for hrs. doxycycline AdvReac Nausea & Verified 10/17/23 14:42 Vomiting & Diarrhea pseudoephedrine HCl AdvReac chest Verified 10/17/23 14:42 [From Sudafed] pain/tachycardia sulfamethoxazole AdvReac Nausea & Verified 10/17/23 14:42 [From Bactrim] Vomiting Adhesive Tape AdvReac Rash/Hives Uncoded 10/17/23 07:51 Physical Exam Vitals: Vital Signs Temp Pulse Resp BP Pulse Ox 10/17/23 07:49 99.2 F 72 18 137/95 96 Intake and Output 10/16/23 10/17/23 10/17/23 22:59 06:59 14:59 Other: Weight 111.13 kg Results CBC & Chem 7: 10/18/23 07:01 10/18/23 07:01 Labs: Abnormal Lab Results - Last 24 Hours (Table) 10/17/23 Range/Units 07:47 Glucose 116 H (74-99) mg/dL Alkaline Phosphatase 36 L (38-126) U/L
[2023-10-17] MEDS ORDERED: PIPERACILLIN-TAZOBACTAM 3.375 GM in SODIUM CHLORIDE 0.9% 100 ML IVPB SCH (16:00)
[2023-10-17] MEDS ORDERED: IBUPROFEN 600 MG TAB PO STA (16:24)
[2023-10-17] MEDS: GLYCOPYRROLATE 1 MG TAB PO SCH ×2 (17:10→21:40)
[2023-10-17] MEDS: GABAPENTIN 300 MG CAP PO SCH ×2 (17:10→21:40)
[2023-10-17 17:12] LABS: Glucose,Whole Blood 100 mg/dL (70-110)
[2023-10-17] MEDS: NON FORMULARY DRUG (Lithium Carbonate [Lithium Carbonate Er] 300 MG Tablet) PO SCH ×2 (17:13→21:59)
[2023-10-17] MEDS: INSULIN ASPART (NovoLOG) 100 UNIT/ML VIAL SQ SCH ×2 (17:15→21:52)
[2023-10-17] MEDS: BACLOFEN 10 MG TAB PO SCH ×2 (19:50→23:10)
[2023-10-17 20:38] LABS: Glucose,Whole Blood 101 mg/dL (70-110)
[2023-10-17] MEDS: traZODone HCL 100 MG TAB PO SCH (21:40)
[2023-10-17] MEDS: FAMOTIDINE 20 MG TAB PO SCH (21:40)
[2023-10-17] MEDS: FENOFIBRATE 160 MG TAB PO SCH (21:41)
[2023-10-17] MEDS: cloNIDine HCL 0.1 MG TAB PO SCH (21:41)
[2023-10-17] MEDS: busPIRone HCl 10 MG TAB PO SCH (21:41)
[2023-10-17] MEDS: EZETIMIBE 10 MG TAB PO SCH (21:43)
[2023-10-17] MEDS: RIVAROXABAN 20 MG TAB PO SCH (21:51)
[2023-10-17] MEDS: NON FORMULARY DRUG (Brexpiprazole [Rexulti] 2 MG Tablet) PO SCH (21:58)
[2023-10-17] MEDS: NON FORMULARY DRUG (Clonidine Hcl [Kapvay] 0.1 MG Tab.Er.12h) PO SCH (21:59)
[2023-10-17] MEDS: HYDROcodone/APAP 7.5-325MG 1 EACH TAB PO PRN (23:16)
[2023-10-17] MEDS: METOCLOPRAMIDE 10 MG TAB PO PRN (23:17)
[2023-10-17] MEDS: FLUTICASONE 50MCG/SPRAY NASAL 16GM EA NOSTRIL SCH (23:19)
[2023-10-17] MEDS: LATANOPROST 0.005% OPHTH DROPS 2.5 ML BTL BOTH EYES SCH (23:20)
[2023-10-18] MEDS: VANCOMYCIN 1,750 MG in SODIUM CHLORIDE 0.9% 500 ML 500 ML IVPB SCH ×2 (06:16→17:54)
[2023-10-18] MEDS: SODIUM CHLORIDE 0.9% 1,000 ML IV SCH ×2 (06:27→17:53)
[2023-10-18 06:46] LABS: Glucose,Whole Blood 87 mg/dL (70-110)
[2023-10-18] MEDS: INSULIN ASPART (NovoLOG) 100 UNIT/ML VIAL SQ SCH ×4 (07:06→21:22)
[2023-10-18] MEDS: LEVOTHYROXINE 100 MCG TAB PO SCH (07:07)
[2023-10-18] MEDS: PANTOPRAZOLE 40 MG TABLET PO SCH (07:07)
[2023-10-18] MEDS: LEVOTHYROXINE 125 MCG TAB PO SCH (07:07)
[2023-10-18] MEDS: SYMBICORT 80-4.5 MCG INHALER INHALATION SCH ×2 (08:44→20:27)
--- NOTE | 2023-10-18 09:14 | P.CONS ---
History of Present Illness - Reason for Consult Consult date: 10/17/23 Fever Requesting physician: Sunny Grier - Chief Complaint Fever off and on x 1 week - History of Present Illness Patient is a 43-year-old female with a past medical history negative for diabetes mellitus hypertension hyperlipidemia patient did have a mitochondrial disorder requiring IV fluid infusion and did have a left chest wall Mediport patient is presenting the hospital for fever off and on for the last 1 week and the patient mention when she discontinued the needle from her port there was some yellowish drainage and concerning for port infection, patien t denies having any surrounding swelling redness or any pain to the port area patient denies having any headache or URI symptoms no chest pain or shortness with occasional cough denies any abdominal pain has been complaining of diarrhea with multiple loose stools denies any blood or mucus in the stools and no significant urinary symptoms on presentation to the hospital patient did have a temperature of 99.2 F did have white count of 8.1 creatinine 0.83 liver enzymes are normal urine has been negative influenza RSV and COVID testing was negative patient did have a chest x-ray no acute pulmonary infiltrate patient was started on vancomycin and Zosyn infectious disease was consulted for further management of antibiotic therapy Review of Systems Positive point and negatives has been mentioned in the HPI, complete review of systems was performed and all other systems are negative Past Medical History Past Medical History: Asthma, Diabetes Mellitus, Deep Vein Thrombosis (DVT), GERD/Reflux, Hearing Disorder / Deafness, Hyperlipidemia, Hypertension, Liver Disease, Neurologic Disorder, Sleep Apnea/CPAP/BIPAP, Syncope, Thyroid Disorder Additional Past Medical History / Comment(s): Mitochondrial metabolism disorder. 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 Lymphedema left arm due to DVTs, avoid use of left arm for BP, IV, blood draws. Hx Vtach, pituitary microadenoma, patent foramen ovale, narcolepsy, gastropareis, hx orthostatic hypotension/syncope, migraines with hemiplegia, pernicious anemia, polycystic ovarian syndrome, neuropathy bilateral legs/feet/arms, uses wheelchair, able to transfer and walk few steps. CPAP use. Lupus anticoagulation syndrome. Enlarged liver. History of Any Multi-Drug Resistant Organisms: ESBL, MRSA Year Discovered:: 12/20/22 ESBL E.coli; 03/09/17 MRSA MDRO Source:: Urine-ESBL; Left Arm-MRSA Past Surgical History: Cholecystectomy, Uterine Ablation Additional Past Surgical History / Comment(s): Colonscopy/EGD, GERSON, PORT-A-CATH INSERTION X3, PICC line insertion and later removed. Past Anesthesia/Blood Transfusion Reactions: Previous Problems w/ Anesthesia, Motion Sickness Additional Past Anesthesia/Blood Transfusion Reaction / Comm: Patient states difficult to sedate. Hx blood transfusions with no issues. Past Psychological History: Anxiety, Bipolar, Depression, PTSD Smoking Status: Never smoker Past Alcohol Use History: Rare Past Drug Use History: None Reported - Past Family History Brother(s) Family Medical History: Diabetes Mellitus, Hyperlipidemia, Hypertension Additional Family Medical History / Comment(s): Patient states she has 1 brother with no major medical problems. Father History Unknown: Yes Family Medical History: Diabetes Mellitus, Hyperlipidemia, Hypertension Mother Family Medical History: CVA/TIA, Diabetes Mellitus, Deep Vein Thrombosis (DVT) Additional Family Medical History / Comment(s): Antiphospholipid antibody syndrome, Lupus, dementia. Multiple DVT's and Strokes. Medications and Allergies Home Medications Medication Instructions Recorded Confirmed Type Levothyroxine Sodium [Synthroid] 100 mcg PO DAILY 01/16/19 10/17/23 History Methenamine Hippurate 1 gm PO BID 07/12/19 10/17/23 History Mirabegron [Myrbetriq] 25 mg PO DAILY 10/08/19 10/17/23 History Fenofibrate [Lofibra] 160 mg PO HS tab 10/17/19 10/17/23 Rx Rivaroxaban [Xarelto] 20 mg PO HS tab 10/17/19 10/17/23 Rx Promethazine [Phenergan] 25 mg PO TID PRN 11/30/19 10/17/23 History Levothyroxine Sodium [Synthroid] 125 mcg PO MOTUWETH 12/28/19 10/17/23 History Albuterol Inhaler [Ventolin Hfa 2 puff INHALATION RT-Q4H PRN 09/19/20 10/17/23 History Inhaler] Dexlansoprazole [Dexilant] 60 mg PO DAILY 09/19/20 10/17/23 History Galcanezumab-Gnlm [Emgality Pen] 120 mg SQ Q30D 09/19/20 10/17/23 History Cyanocobalamin (Vitamin B-12) 1,000 mcg PO DAILY 06/01/21 10/17/23 History [Vitamin B-12] Ezetimibe [Zetia] 10 mg PO HS 06/01/21 10/17/23 History busPIRone HCL [Buspar] 30 mg PO BID 06/01/21 10/17/23 History Baclofen [Lioresal] 20 mg PO QID 06/02/21 10/17/23 History Fluticasone/Vilanterol [Breo 1 puff INHALATION RT-DAILY 09/27/21 10/17/23 History Ellipta 100-25 Mcg Inhaler] Ondansetron Odt [Zofran ODT] 8 mg PO TID PRN 09/27/21 10/17/23 History polyethylene glycoL 3350 [Miralax] 17 gm PO DAILY PRN 09/27/21 10/17/23 History Fluticasone Nasal [place] [Flonase 2 spr EA NOSTRIL BID 04/26/22 10/17/23 History Nasal [place]] [place] Carbonate [[place] 300 mg PO TID 04/26/22 10/17/23 History Carbonate ER] traZODone HCL 200 mg PO HS 04/26/22 10/17/23 History Dicyclomine HCl 20 mg PO Q6H PRN 06/23/22 10/17/23 History Prochlorperazine [Compro] 25 mg RECTAL Q8H PRN 06/23/22 10/17/23 History Rimegepant Sulfate [Nurtec Odt] 75 mg PO DAILY PRN 06/23/22 10/17/23 History cloNIDine HCL [Kapvay] 0.2 mg PO DAILY 06/23/22 10/17/23 History HYDROcodone/APAP 7.5-325MG [[place] 1 tab PO Q8H PRN 10/07/22 10/17/23 History 7.5-325] Pioglitazone [Actos] 45 mg PO DAILY 10/07/22 10/17/23 History Semaglutide [Ozempic] 2 mg SQ SA 10/07/22 10/17/23 History cloNIDine HCL [Kapvay] 0.1 mg PO HS 10/07/22 10/17/23 History glipiZIDE 10 mg PO AC-BRKFST 10/07/22 10/17/23 History sitaGLIPtin [Januvia] 100 mg PO DAILY 10/07/22 10/17/23 History Famotidine 40 mg PO HS 11/07/22 10/17/23 History Metoprolol Succinate (ER) [Toprol 100 mg PO DAILY 11/07/22 10/17/23 History XL] Phenazopyridine HCl [Uristat Ultra] 99.5 mg PO DAILY PRN 11/07/22 10/17/23 History cloNIDine HCL [Catapres] 0.1 mg PO HS 12/15/22 10/17/23 History diazePAM [Valium] 5 mg PO DAILY PRN 02/18/23 10/17/23 History Meloxicam [Mobic] 15 mg PO DAILY 03/15/23 10/17/23 History modafiniL [Provigil] 400 mg PO DAILY 03/15/23 10/17/23 History Butalbital/Aspirin/Caffeine 1 tab PO TID PRN 04/12/23 10/17/23 History [Hjflwu-Wsaznmk-Hsggafmw 50-325-40 mg] Diclofenac Sodium Gel [Voltaren 1% 4 gm TOPICAL QID PRN 04/12/23 10/17/23 History Gel] Latanoprost [Latanoprost 0.005%] 1 drop BOTH EYES HS 04/12/23 10/17/23 History Sodium Chloride 0.9% Solution 2,000 ml IV DAILY 04/12/23 10/17/23 History Triamcinolone 0.5% Cream [Kenalog 1 applic TOPICAL BID PRN 04/12/23 10/17/23 History 0.5% Cream] Trimethoprim [Trimpex] 100 mg PO DAILY 04/12/23 10/17/23 History Brexpiprazole [Rexulti] 2 mg PO BID 06/13/23 10/17/23 History Lactulose 10 - 20 gm PO BID PRN 06/13/23 10/17/23 History Sucralfate [Carafate] 1 gm PO TID-W/MEALS PRN 06/13/23 10/17/23 History Ammonium Lactate Lotion 1 applic TOPICAL DAILY 10/17/23 10/17/23 History [Lac-Hydrin 12% Lotion] Dexmethylphenidate HCl [Focalin Xr] 10 mg PO DAILY 10/17/23 10/17/23 History Gabapentin 600 mg PO TID 10/17/23 10/17/23 History Glycopyrrolate [Robinul Forte] 2 mg PO TID 10/17/23 10/17/23 History Ketoconazole 2% Shampoo [Nizoral] 1 applic TOPICAL SUWE 10/17/23 10/17/23 History Linaclotide [Linzess] 72 mcg PO DAILY 10/17/23 10/17/23 History Loratadine [Claritin] 10 mg PO DAILY 10/17/23 10/17/23 History Mag Hydrox/Al Hydrox/Simeth 30 ml PO QID PRN 10/17/23 10/17/23 History [Maalox] Metoclopramide [Reglan] 10 mg PO ACHS PRN 10/17/23 10/17/23 History Inw-Ynxu-Xaljl Acid 1 cap PO W/BRKFST 10/17/23 10/17/23 History [-U Capsule (formulary)] Rizatriptan Benzoate [Rizatriptan] 5 mg PO BID PRN 10/17/23 10/17/23 History Silver Sulfadiazine [Silver 1 applic TOPICAL BID PRN 10/17/23 10/17/23 History Sulfadiazine 1%] fluvoxaMINE MALEATE [Luvox] 25 mg PO HS 10/17/23 10/17/23 History predniSONE 5 mg PO W/BRKFST 10/17/23 10/17/23 History Allergies Allergy/AdvReac Type Severity Reaction Status Date / Time peanut oil Allergy Severe Nausea & Verified 10/17/23 14:42 Vomiting,itching barium sulfate Allergy Anaphylaxis Verified 10/17/23 14:42 doxepin [Doxepin] Allergy Anaphylaxis Verified 10/17/23 14:42 ephedrine Allergy Chest Verified 10/17/23 14:42 Pain/tachycardia ertapenem [From Invanz] Allergy Rash/Hives- Verified 10/17/23 14:42 like a chemical burn peanut Allergy Anaphylaxis Verified 10/17/23 14:42 pseudoephedrine Allergy Chest Pain Verified 10/17/23 14:42 Sulfa (Sulfonamide Allergy Nausea & Verified 10/17/23 14:42 Antibiotics) Vomiting, DEHYDRATION sumatriptan [From Imitrex] Allergy affects Verified 10/17/23 14:42 vision-unable to see for hrs. doxycycline AdvReac Nausea & Verified 10/17/23 14:42 Vomiting & Diarrhea pseudoephedrine HCl AdvReac chest Verified 10/17/23 14:42 [From Sudafed] pain/tachycardia sulfamethoxazole AdvReac Nausea & Verified 10/17/23 14:42 [From Bactrim] Vomiting Adhesive Tape AdvReac Rash/Hives Uncoded 10/17/23 07:51 Physical Exam Vitals: Vital Signs Temp Pulse Resp BP Pulse Ox 10/17/23 14:44 78 16 113/78 98 10/17/23 07:49 99.2 F 72 18 137/95 96 Intake and Output 10/17/23 10/17/23 10/17/23 06:59 14:59 22:59 Other: Weight 111.13 kg GENERAL DESCRIPTION: Middle-aged female lying in bed, no distress. No tachypnea or accessory muscle of respiration use. HEENT: Shows Pallor , no scleral icterus. Oral mucous membrane is dry. No pharyngeal erythema or thrush NECK: Trachea central, no thyromegaly. LUNGS: Unlabored breathing. Clear to auscultation anteriorly. No wheeze or crackle. HEART: S1, S2, regular rate and rhythm. No loud murmur ABDOMEN: Soft, no tenderness , guarding or rigidity, no organomegaly EXTREMITIES: No edema of feet. SKIN: No rash, no masses palpable. NEUROLOGICAL: The patient is awake, alert, oriented x3, mood and affect normal. Results CBC & Chem 7: 10/19/23 05:48 10/19/23 05:48 Labs: Abnormal Lab Results - Last 24 Hours (Table) 10/17/23 Range/Units 07:47 Glucose 116 H (74-99) mg/dL Alkaline Phosphatase 36 L (38-126) U/L Assessment and Plan (1) Fever Status: Acute Code(s): R50.9 - FEVER, UNSPECIFIED SNOMED Code(s): 511859977 Plan: 1patient was in the hospital with fever off-and-on for about a week and also noticed to have some drainage from the left chest wall port site concerning for possible port infection likely from gram-positive skin radha 2-blood cultures have been obtained and results will be followed 3-patient also complaining of diarrhea we will check a stool studies 4-continue patient vancomycin pharmacy to dose while watching her kidney function closely however discontinue Zosyn to decrease risk of nephrotoxicity We will follow on clinical condition and cultures to further adjust medication if needed Thank you for this consultation we will follow the patient along with you Dictation was produced using [employer] dictation software. please excuse any grammatical, word or spelling errors. Time with Patient: Greater than 30
[2023-10-18] MEDS: METOPROLOL SUCCINATE (ER) 100 MG TAB.ER.24H PO SCH (10:55)
[2023-10-18] MEDS: busPIRone HCl 10 MG TAB PO SCH ×2 (10:55→23:27)
[2023-10-18] MEDS: BACLOFEN 10 MG TAB PO SCH ×4 (10:56→23:27)
[2023-10-18] MEDS: cloNIDine HCL 0.1 MG TAB PO SCH ×2 (10:56→22:48)
[2023-10-18] MEDS: GLYCOPYRROLATE 1 MG TAB PO SCH ×3 (10:56→22:51)
[2023-10-18] MEDS: CYANOCOBALAMIN 500 MCG TAB PO SCH (10:56)
[2023-10-18] MEDS: LORATADINE 10 MG TAB PO SCH (10:57)
[2023-10-18 11:13] LABS: ALT 23 U/L (8-44); AST 23 U/L (13-35); Albumin 4.2 g/dL (3.8-4.9); Alkaline Phosphatase 38 U/L (41-126); Blood Urea Nitrogen 11.7 mg/dL (9.0-27.0); Calcium 9.4 mg/dL (8.7-10.3); Carbon Dioxide 21.2 mmol/L (21.6-31.8); Chloride 107 mmol/L (96-109); Glucose 97 mg/dL (70-110); Potassium 4.2 mmol/L (3.5-5.5); Sodium 138 mmol/L (135-145); Total Bilirubin <0.2 mg/dL (0.3-1.2); Total Protein 6.2 g/dL (6.2-8.2)
[2023-10-18 12:44] LABS: Basophils # (A) 0.02 X 10*3/uL (0.00-0.10); Basophils % (A) 0.3 %; Eosinophils # (A) 0.17 X 10*3/uL (0.04-0.35); Eosinophils % (A) 2.8 %; HCT 36.4 % (37.2-46.3); HGB 11.2 g/dL (12.0-15.0); Lymphocytes # (A) 0.95 X 10*3/uL (0.90-5.00); Lymphocytes % (A) 15.8 %; MCH 28.8 pg (27.0-32.0); MCHC 30.8 g/dL (32.0-37.0); MCV 93.6 FL (80.0-97.0); Mean Platelet Volume 10.4 FL (9.5-12.2); Monocytes # (A) 0.56 X 10*3/uL (0.20-1.00); Monocytes % (A) 9.3 %; NRBC Per 100 WBC 0 X 10*3/uL (0.00-0.01); Neutrophils # (A) 4.28 X 10*3/uL (1.80-7.70); Neutrophils % (A) 71.3 %; Platelet Count 236 X 10*3/uL (140-440); RBC 3.89 X 10*6/uL (4.10-5.20); RBC Morphology Normal (Normal); RDW 14.4 % (11.5-14.5); WBC 6.01 X 10*3/uL (4.50-10.00)
[2023-10-18] MEDS: GABAPENTIN 300 MG CAP PO SCH ×3 (12:46→22:48)
[2023-10-18] MEDS: HYDROcodone/APAP 7.5-325MG 1 EACH TAB PO PRN (12:47)
[2023-10-18 12:56] LABS: Glucose,Whole Blood 131 mg/dL (70-110)
[2023-10-18] MEDS: NON FORMULARY DRUG (Mirabegron [Myrbetriq] 25 MG Tab.Er.24h) PO SCH (15:50)
[2023-10-18] MEDS: NON FORMULARY DRUG (Lithium Carbonate [Lithium Carbonate Er] 300 MG Tablet) PO SCH ×3 (15:51→22:49)
[2023-10-18] MEDS: FLUTICASONE 50MCG/SPRAY NASAL 16GM EA NOSTRIL SCH ×2 (15:53→22:52)
[2023-10-18] MEDS: NON FORMULARY DRUG (Linaclotide [Linzess] 72 MCG Capsule) PO SCH (15:56)
[2023-10-18] MEDS: NON FORMULARY DRUG (Clonidine Hcl [Kapvay] 0.1 MG Tab.Er.12h) PO SCH ×2 (15:57→22:53)
--- NOTE | 2023-10-18 15:57 | P.PN ---
Subjective Progress Note Date: 10/18/23 History of Presenting Illness: Patient is a very pleasant 43-year-old female with a past medical history of mitochondrial metabolism disorder, hypertension, hyperlipidemia, lupus, Ansley jordin's thyroiditis, gfl-lvjxmpr-hersxcttb diabetes mellitus, obstructive sleep apnea CPAP dependent nightly, DVT on anticoagulation, anxiety, bipolar, and depression. She presented to the emergency department secondary to reports of cyclical fevers 1.5 weeks. Patient reports she is currently on palliative care and has a port for IV fluid administration and administration of antibiotics. She reports she has been feeling fatigue with cyclical fevers as high as 102.0F, nausea, diarrhea, and a stuffy nose times one and half weeks. Patient reports she just assumed she had the flu but reports yesterday when she went to deaccess her port there was a significant amount of purulent drainage that came out. Patient denies having any dizziness, lightheadedness, changes in vision or hearing, chest pain or palpitations, shortness of breath, or experiencing any numbness/tingling/weakness in her extremity. Patient reports she is wheelchair bound with the exception of ambulating to and from wheelchair to bed or chair with minimal distances. Patient reports she has been wheelchair-bound 1 year secondary to her mitochondrial metabolism disorder and chronic fatigue and pain. She underwent full evaluation the emergency department. Labs completed and reviewed. CBC and BMP were unremarkable. Liver profile normal findings. Urinalysis negative for infection. Influenza A, influenza B, RSV, and Covid PCR were all negative. Chest x-ray negative for acute process. Patient admitted under the services of consultation to infectious disease. Physical exam: Patient seen and fully evaluated at bedside this morning. Patient was ambulatory in room and appeared to have a steady gait upon evaluation. Patient has been afebrile since admission to our facility. Vital signs unremarkable and labs showing no abnormalities. Vital signs reviewed and stable. General: Nontoxic, no distress and appears stated age. Derm: Skin warm and dry, normal coloration for ethnicity. Head: Atraumatic, normocephalic and symmetric. Eyes: EOMs intact, no lid lag, and anicteric sclera Mouth: no lip lesions, mucus membranes moist Cardiovascular: regular rate and rhythm with normal S1S2, no murmur, positive posterior tibial pulses bilaterally, and cap refill < 2 seconds. Lungs: Respirations even, regular, and unlabored on room air. Lungs CTA bilaterally, no rhonchi, no rales, no wheezing, and no accessory muscle usage. Abdominal: soft, nontender to palpation, no guarding, no appreciable org anomegaly Ext: ROM intact. No gross muscle atrophy, no edema, no contractures Neuro: Speech clear, face symmetrical and CN II-XII grossly intact with no noted focal neuro deficits Psych: Alert and oriented to person, place, time, and situation. Appropriate and pleasant affect. Assessment and Plan of Care: Concerns of Infected port with reports of Purulent drainage from port Subjective fevers accompanied by nausea and diarrhea History of mitochondrial metabolism disorder Ybs-ihcqatd-vcozmqaws diabetes mellitus Hypertension Hyperlipidemia Hypothyroidism Lupus -Blood cultures obtained, will follow-up with results -Orders were placed for C. diff and stool cultures and awaiting for stool speci men to be obtained and sent to lab for analysis. -Pending blood culture results, continue broad-spectrum antibiotics with vancomycin 1750 mg every 12 hours with close monitoring of renal function and vancomycin troponin to watch closely for any signs of vancomycin assisted renal toxicity. -Infectious disease following, and discussed plan of care with Dr. Llanes. -ContinueTelemetry monitoring. -Home medications reviewed and reordered. History of DVT Continue daily anticoagulation with Xarelto 20 mg with dinner nightly. Data and imaging reviewed: -Labs completed and reviewed. CBC and BMP remain unremarkable. Liver profile normal findings. lithium level therapeutic at 1.0. -Vital signs reviewed and stable. Blood pressure 108/80, heart rate 76, respiratory rate 18, and SpO2 of 97% on room air. CODE STATUS: full code DVT prophylaxis: Xarelto Anticipated discharge date: Clinical course to determine Anticipated discharge place: Clinical course to determine Patient was seen independently by Nurse Practitioner. This document was prepared using [employer] dictation software. Please allow for errors in school treasurer while rare they do occur. Bruce Manzo NP rendered care for this patient independently, reviewed the findings and plan as documented in the note above. I did not physically speak with or examine the patient on this date. Objective - Vital Signs Vital signs: Vital Signs Temp 98.5 F 10/18/23 02:00 Pulse 82 10/18/23 02:00 Resp 16 10/18/23 02:00 BP 133/68 10/18/23 02:00 Pulse Ox 97 10/18/23 02:00 FiO2 Intake & Output 10/17/23 10/18/23 10/18/23 18:59 06:59 18:59 Weight 111.13 kg - Labs CBC & Chem 7: 10/18/23 07:01 10/18/23 07:01 Labs: Abnormal Lab Results - Last 24 Hours (Table) 10/17/23 Range/Units 07:47 Glucose 116 H (74-99) mg/dL Alkaline Phosphatase 36 L (38-126) U/L
[2023-10-18] MEDS: NON FORMULARY DRUG (Brexpiprazole [Rexulti] 2 MG Tablet) PO SCH ×2 (16:00→22:52)
--- NOTE | 2023-10-18 16:57 | P.PN ---
Subjective Progress Note Date: 10/18/23 Principal diagnosis: Reason for follow-up is possible port infection Patient is a 43-year-old female with a past medical history negative for diabetes mellitus hypertension hyperlipidemia patient did have a mitochondrial disorder requiring IV fluid infusion and did have a left chest wall Mediport patient is presenting the hospital for fever off and on for the last 1 week and the patient mention when she discontinued the needle from her port there was some yellowish drainage and concerning for port infection on today's evaluation that is 10/18/2023, the patient denies any fever or any chills, the patient is breathing comfortably on room air without the need for supplemental oxygen, patient denies chest pain shortness of breath, the patient denies cough or sputum production, patient denies Abdominal pain did have some nausea but no vomiting mentioned that he has resolved complaining of mostly headache Patient did have a white count of 6.01 creatinine 0.9 Objective - Vital Signs Vital signs: Vital Signs Temp 98.2 F 10/18/23 12:47 Pulse 74 10/18/23 12:47 Resp 18 10/18/23 12:47 BP 120/74 10/18/23 12:47 Pulse Ox 98 10/18/23 12:47 FiO2 Intake & Output 10/17/23 10/18/23 10/18/23 18:59 06:59 18:59 Weight 111.13 kg - Exam GENERAL DESCRIPTION: Middle-age female lying in bed in no distress RESPIRATORY SYSTEM: Unlabored breathing , clear to auscultation anteriorly HEART: S1 S2 regular rate and rhythm , ABDOMEN: Soft , no tenderness EXTREMITIES: No edema feet - Labs CBC & Chem 7: 10/18/23 07:01 10/18/23 07:01 Labs: Abnormal Lab Results - Last 24 Hours (Table) 10/18/23 10/18/23 10/18/23 Range/Units 07:01 07:01 12:54 RBC 3.89 L (4.10-5.20) X 10*6/uL Hgb 11.2 L (12.0-15.0) g/dL Hct 36.4 L (37.2-46.3) % MCHC 30.8 L (32.0-37.0) g/dL Carbon Dioxide 21.2 L (21.6-31.8) mmol/L POC Glucose (mg/dL) 131 H (70-110) mg/dL Total Bilirubin <0.2 L (0.3-1.2) mg/dL Alkaline Phosphatase 38 L (41-126) U/L Assessment and Plan (1) Fever, unknown origin Current Visit: Yes Status: Acute Code(s): R50.9 - FEVER, UNSPECIFIED SNOMED Code(s): 0889501 Plan: 1patient was in the hospital with fever off-and-on for about a week and also noticed to have some drainage from the left chest wall port site concerning for possible port infection likely from gram-positive skin radha 2-blood cultures have been obtained and so far pending 3-patient mention resolution of diarrhea stool studies were not collected 4-patient to continue patient vancomycin pharmacy to dose while watching her kidney function closely Dictation was produced using [employer] dictation software. please excuse any grammatical, word or spelling errors. Time with Patient: Less than 30
[2023-10-18] MEDS: predniSONE 5 MG TAB PO SCH (17:55)
[2023-10-18 18:21] LABS: Glucose,Whole Blood 139 mg/dL (70-110)
[2023-10-18 20:56] LABS: Glucose,Whole Blood 92 mg/dL (70-110)
[2023-10-18] MEDS: traZODone HCL 100 MG TAB PO SCH (22:48)
[2023-10-18] MEDS: FAMOTIDINE 20 MG TAB PO SCH (22:48)
[2023-10-18] MEDS: EZETIMIBE 10 MG TAB PO SCH (22:49)
[2023-10-18] MEDS: LATANOPROST 0.005% OPHTH DROPS 2.5 ML BTL BOTH EYES SCH (22:51)
[2023-10-18] MEDS: ONDANSETRON 4 MG/2 ML VIAL IVP PRN (22:54)
[2023-10-18] MEDS: RIVAROXABAN 20 MG TAB PO SCH (23:27)
[2023-10-18] MEDS: FENOFIBRATE 160 MG TAB PO SCH (23:27)
[2023-10-19] MEDS: VANCOMYCIN 1,750 MG in SODIUM CHLORIDE 0.9% 500 ML 500 ML IVPB SCH ×2 (04:15→16:46)
[2023-10-19 06:05] LABS: Glucose,Whole Blood 121 mg/dL (70-110)
[2023-10-19] MEDS: LEVOTHYROXINE 100 MCG TAB PO SCH (06:07)
[2023-10-19] MEDS: LEVOTHYROXINE 125 MCG TAB PO SCH (06:07)
[2023-10-19] MEDS: PANTOPRAZOLE 40 MG TABLET PO SCH (06:07)
[2023-10-19] MEDS: SODIUM CHLORIDE 0.9% 1,000 ML IV SCH ×2 (06:08→10:12)
[2023-10-19] MEDS: INSULIN ASPART (NovoLOG) 100 UNIT/ML VIAL SQ SCH ×4 (06:10→20:47)
[2023-10-19] MEDS: METOCLOPRAMIDE 10 MG TAB PO PRN (06:43)
[2023-10-19] MEDS: GLYCOPYRROLATE 1 MG TAB PO SCH ×3 (09:04→20:43)
[2023-10-19] MEDS: BACLOFEN 10 MG TAB PO SCH ×4 (09:04→20:45)
[2023-10-19] MEDS: predniSONE 5 MG TAB PO SCH (09:04)
[2023-10-19] MEDS: LORATADINE 10 MG TAB PO SCH (09:04)
[2023-10-19] MEDS: CYANOCOBALAMIN 500 MCG TAB PO SCH (09:04)
[2023-10-19] MEDS: METOPROLOL SUCCINATE (ER) 100 MG TAB.ER.24H PO SCH (09:04)
[2023-10-19] MEDS: GABAPENTIN 300 MG CAP PO SCH ×3 (09:04→20:44)
[2023-10-19] MEDS: NON FORMULARY DRUG (Clonidine Hcl [Kapvay] 0.1 MG Tab.Er.12h) PO SCH ×2 (09:09→21:19)
[2023-10-19] MEDS: NON FORMULARY DRUG (Linaclotide [Linzess] 72 MCG Capsule) PO SCH (09:11)
[2023-10-19] MEDS: NON FORMULARY DRUG (Brexpiprazole [Rexulti] 2 MG Tablet) PO SCH ×2 (09:11→20:43)
[2023-10-19] MEDS: NON FORMULARY DRUG (Lithium Carbonate [Lithium Carbonate Er] 300 MG Tablet) PO SCH ×3 (09:12→21:20)
[2023-10-19] MEDS: NON FORMULARY DRUG (Mirabegron [Myrbetriq] 25 MG Tab.Er.24h) PO SCH (09:13)
[2023-10-19] MEDS: SYMBICORT 80-4.5 MCG INHALER INHALATION SCH ×2 (09:13→20:23)
[2023-10-19] MEDS: FLUTICASONE 50MCG/SPRAY NASAL 16GM EA NOSTRIL SCH ×2 (09:14→20:47)
[2023-10-19] MEDS: busPIRone HCl 10 MG TAB PO SCH ×2 (10:12→20:45)
[2023-10-19 10:57] LABS: Basophils # (A) 0.04 X 10*3/uL (0.00-0.10); Basophils % (A) 0.8 %; Eosinophils # (A) 0.18 X 10*3/uL (0.04-0.35); Eosinophils % (A) 3.4 %; HCT 33.5 % (37.2-46.3); HGB 10.2 g/dL (12.0-15.0); Lymphocytes # (A) 1.15 X 10*3/uL (0.90-5.00); Lymphocytes % (A) 21.6 %; MCH 28.4 pg (27.0-32.0); MCHC 30.4 g/dL (32.0-37.0); MCV 93.3 FL (80.0-97.0); Mean Platelet Volume 9.6 FL (9.5-12.2); Monocytes # (A) 0.58 X 10*3/uL (0.20-1.00); Monocytes % (A) 10.9 %; NRBC Per 100 WBC 0 X 10*3/uL (0.00-0.01); Neutrophils # (A) 3.36 X 10*3/uL (1.80-7.70); Neutrophils % (A) 62.9 %; Platelet Count 236 X 10*3/uL (140-440); RBC 3.59 X 10*6/uL (4.10-5.20); RDW 13.9 % (11.5-14.5); WBC 5.33 X 10*3/uL (4.50-10.00)
[2023-10-19 11:33] LABS: BUN/Creat Ratio 9.75 Ratio (12.00-20.00); Blood Urea Nitrogen 7.8 mg/dL (9.0-27.0); Calcium 9.2 mg/dL (8.7-10.3); Carbon Dioxide 20.3 mmol/L (21.6-31.8); Chloride 111 mmol/L (96-109); Glucose 116 mg/dL (70-110); Potassium 4.1 mmol/L (3.5-5.5); Sodium 141 mmol/L (135-145)
[2023-10-19 12:50] LABS: Glucose,Whole Blood 178 mg/dL (70-110)
[2023-10-19] MEDS ORDERED: VANCOMYCIN TROUGH DUE 1 EACH MISC MISCELLANE ONE (15:00)
--- NOTE | 2023-10-19 15:18 | P.PN ---
Subjective Progress Note Date: 10/19/23 (delayed charting seen at 0930) Patient is a 43-year-old female with known mitochondrial metabolism disorder, hypertension, dyslipidemia, lupus, question viral's thyroiditis, sci-gcdccqb-d ependent diabetes, and obstructive sleep apnea on CPAP as well as multiple other comorbid conditions who reported to the emergency department due to cyclical fevers for the last 1.5 weeks and purulent discharge from her Mediport. Patient reported a fever at home of 102. On arrival to the ER her vital signs are within normal limits laboratory analysis included CBC, CMP which were negative. Urinalysis was unremarkable. Influenza A/B/RSV/COVID-19 testing was negative. X-ray showed no acute process. She was admitted and placed on vancomycin. Patient seen and examined at bedside. She has not had any more diarrhea or vomiting. She does reporte continued nausea. She continues to feel fatigued and just worn down. She works that she has had 5 different ports which have been exchanged either due to infection or malfunction. Vital signs reviewed General: nontoxic, no distress, appears at stated age Cardiovascular: S1S2 reg, no murmur, positive posterior tibial pulse bilateral, Amrit: Area around the Mediport without erythema, warmth, or purulence Lungs: CTA bilateral, no rhonchi, no rales , no accessory muscle use Abdominal: soft, nontender to palpation, no guarding, no appreciable organomegaly Ext: no gross muscle atrophy, no edema b/l lower extremities, no contractures Neuro: CN II-XI grossly intact, no focal neuro deficits Psych: Alert, oriented, appropriate affect Assessment/Plan: Fever, concern for infected port -Blood cultures negative for 24 hours - afebrile since admission with T-max 99.4 in the last 24 hours -Continue with vancomycin, 750 mg every 12 hours. Monitor for toxicity with trough and creatinine levels. -Transition patient to inpatient status as early discharge would be detrimental as she does have a port infection this could be life threatening and lead to early sepsis. Need to be monitored until blood cultures are negative for at least 48 hours. - ID notes reviewed from 10/18: Continue patient on vancomycin, await blood cultures. -No diarrhea to obtain C. diff. Amw-itwrppk-kxnsmwvlg diabetes -Sliding-scale insulin, follow blood sugars -Hold Shruthi, kadeem symptomatic, Actos, glipizide Suspect that many of patients chronic complaints are likely related to Severe polypharmacy patient is on multiple stimulants in conjunction with sedative medications.Will defer medication optimaziation to her PCP. Chronic: Hypertension Dyslipidemia Hypothyroidism Lupus Midochondrial disorder Dysautonomia, lupus, Emily's thyroiditis, narcolepsy, gastroparesis, orthostatic hypotension Imaging: None new Data Review: Labs reviewed from today include CBC and basic metabolic profile which are essentially unremarkable. A1c 6 DVT prophylaxis: SCDS Anticipated discharge date: 24-[address]: home This dictation was prepared using [employer] voice recognition software. Though every attempt is made to correct errors during dictation some may still exist. Objective - Vital Signs Vital signs: Vital Signs Temp 99.1 F 10/19/23 13:32 Pulse 83 10/19/23 13:32 Resp 16 10/19/23 13:32 BP 123/79 10/19/23 13:32 Pulse Ox 97 10/19/23 13:32 FiO2 Intake & Output 10/18/23 10/19/23 10/19/23 18:59 06:59 18:59 Intake Total 584 Output Total 1000 Balance -416 Weight 111.13 kg Intake: Oral 584 Output: Urine 1000 Other: Voiding Method Toilet # Voids 1 1 # Bowel Movements 1 - Labs CBC & Chem 7: 10/19/23 05:48 10/19/23 05:48 Labs: Abnormal Lab Results - Last 24 Hours (Table) 10/18/23 10/19/23 10/19/23 Range/Units 18:17 05:48 05:48 RBC 3.59 L (4.10-5.20) X 10*6/uL Hgb 10.2 L (12.0-15.0) g/dL Hct 33.5 L (37.2-46.3) % MCHC 30.4 L (32.0-37.0) g/dL Chloride 111 H (96-109) mmol/L Carbon Dioxide 20.3 L (21.6-31.8) mmol/L BUN 7.8 L (9.0-27.0) mg/dL BUN/Creatinine Ratio 9.75 L (12.00-20.00) Ratio Glucose 116 H (70-110) mg/dL POC Glucose (mg/dL) 139 H (70-110) mg/dL 10/19/23 10/19/23 Range/Units 06:04 12:45 RBC (4.10-5.20) X 10*6/uL Hgb (12.0-15.0) g/dL Hct (37.2-46.3) % MCHC (32.0-37.0) g/dL Chloride (96-109) mmol/L Carbon Dioxide (21.6-31.8) mmol/L BUN (9.0-27.0) mg/dL BUN/Creatinine Ratio (12.00-20.00) Ratio Glucose (70-110) mg/dL POC Glucose (mg/dL) 121 H 178 H (70-110) mg/dL Microbiology - Last 24 Hours (Table) 10/17/23 07:47 Blood Culture - Preliminary Blood 10/17/23 07:47 Blood Culture - Preliminary Blood
[2023-10-19 17:50] LABS: Glucose,Whole Blood 138 mg/dL (70-110)
[2023-10-19] MEDS: HYDROcodone/APAP 7.5-325MG 1 EACH TAB PO PRN (18:20)
[2023-10-19 20:28] LABS: Glucose,Whole Blood 104 mg/dL (70-110)
[2023-10-19] MEDS: RIVAROXABAN 20 MG TAB PO SCH (20:45)
[2023-10-19] MEDS: FAMOTIDINE 20 MG TAB PO SCH (20:45)
[2023-10-19] MEDS: traZODone HCL 100 MG TAB PO SCH (20:45)
[2023-10-19] MEDS: LATANOPROST 0.005% OPHTH DROPS 2.5 ML BTL BOTH EYES SCH (20:46)
[2023-10-19] MEDS: EZETIMIBE 10 MG TAB PO SCH (20:46)
[2023-10-19] MEDS: cloNIDine HCL 0.1 MG TAB PO SCH (20:46)
[2023-10-19] MEDS ORDERED: BENZOCAINE 20 % GEL 11.9 GM TUBE MM ONE (21:00)
[2023-10-19] MEDS: FENOFIBRATE 160 MG TAB PO SCH (21:22)
[2023-10-19] MEDS ORDERED: IBUPROFEN 400 MG TAB PO PRN (22:28)
[2023-10-20] MEDS: VANCOMYCIN 1,750 MG in SODIUM CHLORIDE 0.9% 500 ML 500 ML IVPB SCH (04:52)
[2023-10-20] MEDS: ONDANSETRON 4 MG/2 ML VIAL IVP PRN (05:01)
[2023-10-20 06:17] LABS: Glucose,Whole Blood 123 mg/dL (70-110)
[2023-10-20] MEDS: INSULIN ASPART (NovoLOG) 100 UNIT/ML VIAL SQ SCH (06:18)
[2023-10-20] MEDS: LEVOTHYROXINE 125 MCG TAB PO SCH (06:22)
[2023-10-20] MEDS: predniSONE 5 MG TAB PO SCH (06:22)
[2023-10-20] MEDS: PANTOPRAZOLE 40 MG TABLET PO SCH (06:22)
[2023-10-20] MEDS: LEVOTHYROXINE 100 MCG TAB PO SCH (06:22)
[2023-10-20] MEDS: GABAPENTIN 300 MG CAP PO SCH (08:00)
[2023-10-20] MEDS: BACLOFEN 10 MG TAB PO SCH (08:00)
[2023-10-20] MEDS: busPIRone HCl 10 MG TAB PO SCH (08:00)
[2023-10-20] MEDS: GLYCOPYRROLATE 1 MG TAB PO SCH (08:01)
[2023-10-20] MEDS: CYANOCOBALAMIN 500 MCG TAB PO SCH (08:01)
[2023-10-20] MEDS: LORATADINE 10 MG TAB PO SCH (08:01)
[2023-10-20] MEDS: METOPROLOL SUCCINATE (ER) 100 MG TAB.ER.24H PO SCH (08:01)
[2023-10-20] MEDS: NON FORMULARY DRUG (Lithium Carbonate [Lithium Carbonate Er] 300 MG Tablet) PO SCH (08:02)
[2023-10-20] MEDS: NON FORMULARY DRUG (Clonidine Hcl [Kapvay] 0.1 MG Tab.Er.12h) PO SCH (08:02)
[2023-10-20] MEDS: NON FORMULARY DRUG (Linaclotide [Linzess] 72 MCG Capsule) PO SCH (08:02)
[2023-10-20] MEDS: NON FORMULARY DRUG (Mirabegron [Myrbetriq] 25 MG Tab.Er.24h) PO SCH (08:02)
[2023-10-20] MEDS: FLUTICASONE 50MCG/SPRAY NASAL 16GM EA NOSTRIL SCH (08:03)
[2023-10-20] MEDS: NON FORMULARY DRUG (Brexpiprazole [Rexulti] 2 MG Tablet) PO SCH (08:03)
[2023-10-20 08:04] VITALS: BP 115/73; PULSE 79; RESP 16; TEMP 98.1
[2023-10-20] MEDS: SYMBICORT 80-4.5 MCG INHALER INHALATION SCH (08:43)
[2023-10-20] MEDS: SODIUM CHLORIDE 0.9% 1,000 ML IV SCH (10:18)
--- NOTE | 2023-10-20 14:19 | P.PN ---
Subjective Progress Note Date: 10/20/23 Principal diagnosis: Reason for follow-up is possible port infection Patient is a 43-year-old female with a past medical history negative for diabetes mellitus hypertension hyperlipidemia patient did have a mitochondrial disorder requiring IV fluid infusion and did have a left chest wall Mediport patient is presenting the hospital for fever off and on for the last 1 week and the patient mention when she discontinued the needle from her port there was some yellowish drainage and concerning for port infection on today's evaluation that is 10/20/2023, the patient denies any fever or any chills, the patient is breathing comfortably on room air and denies any short ness of breath, the patient denies any chest pain, no cough or sputum production, patient denies nausea/vomiting /diarrhea and no abdominal pain Patient did have a white count of 5.33, creatinine 0.8 as of yesterday blood culture negative so far Objective - Vital Signs Vital signs: Vital Signs Temp 98.1 F 10/20/23 07:50 Pulse 79 10/20/23 07:50 Resp 16 10/20/23 07:50 BP 115/73 10/20/23 07:50 Pulse Ox 96 10/20/23 07:50 FiO2 Intake & Output 10/19/23 10/20/23 10/20/23 18:59 06:59 18:59 Intake Total 584 118 Output Total 1000 Balance -416 118 Intake: Oral 584 118 Output: Urine 1000 Other: Voiding Method Bedside Commode # Voids 1 2 # Bowel Movements 1 - Exam GENERAL DESCRIPTION: Middle-age female lying in bed in no distress RESPIRATORY SYSTEM: Unlabored breathing , clear to auscultation anteriorly HEART: S1 S2 regular rate and rhythm , ABDOMEN: Soft , no tenderness EXTREMITIES: No edema feet - Labs CBC & Chem 7: 10/19/23 05:48 10/19/23 05:48 Labs: Abnormal Lab Results - Last 24 Hours (Table) 10/19/23 10/19/23 10/20/23 Range/Units 12:45 17:46 06:15 POC Glucose (mg/dL) 178 H 138 H 123 H (70-110) mg/dL Microbiology - Last 24 Hours (Table) 10/17/23 07:47 Blood Culture - Preliminary Blood 10/17/23 07:47 Blood Culture - Preliminary Blood Assessment and Plan (1) Fever, unknown origin Status: Acute Code(s): R50.9 - FEVER, UNSPECIFIED SNOMED Code(s): 7893232 Plan: 1patient was in the hospital with fever off-and-on for about a week and also noticed to have some drainage from the left chest wall port site concerning for possible port infection likely from gram-positive skin radha 2-blood cultures have been obtained and so far pending 3-patient mention resolution of diarrhea stool studies were not collected 4-patient did not have any fever during the hospital stay and culture negative antibodies can be safely discontinued and no need for antibiotic on discharge Dictation was produced using [employer] dictation software. please excuse any grammatical, word or spelling errors. Time with Patient: Less than 30
--- NOTE | 2023-10-20 14:32 | P.DS ---
Providers Date of admission: 10/19/23 13:29 Expected date of discharge: 10/20/23 Attending physician: Georges Montgomery MD Consults: 10/17/23 13:59 Consult Physician Urgent Consulting Provider: Juliane Llanes Consult Reason/Comments: fever Do you want consulting provider notified?: Yes Primary care physician: René Carrillo MD Hospital Course: Discharge Diagnosis: Fevers at home, mediport infection ruled out Diabetes mellitus type 2, non-insulin requiring Intractable nausea. Hypertension Dyslipidemia Hypothyroidism Lupus Midochondrial disorder Dysautonomia, lupus, Emily's thyroiditis, narcolepsy, gastroparesis, orthostatic hypotension Hospital Course: Patient is a 43-year-old female with known mitochondrial metabolism disorder, hypertension, dyslipidemia, lupus, question viral's thyroiditis, aje-ureelbv-ymyjejayy diabetes, and obstructive sleep apnea on CPAP as well as multiple other comorbid conditions who reported to the emergency department due to cyclical fevers for the last 1.5 weeks and purulent discharge from her Mediport. Patient reported a fever at home of 102. On arrival to the ER her vital signs are within normal limits laboratory analysis included CBC, CMP which were negative. Urinalysis was unremarkable. Influenza A/B/RSV/COVID-19 testing was negative. X-ray showed no acute process. She was admitted and placed on vancomycin. She remained afebrile throughout her hospital stay. Her white blood cell count remained normal. Blood cultures were negative 48 hours. Mediport site did not appear grossly infected. Patient was subsequently determined stable for discharge home. Follow-up: Dr. Carrillo in 1-2 days, palliative and home care, she was instructed to see a dentist regarding her 2 broken teeth on her bottom right jaw Patient seen and examined at bedside. Still having some nausea. Has zofran at home that she can take. Per nursing has not had any vomiting. Vital signs reviewed and stable. General: nontoxic, no distress, appears at stated age [place]: 2 broken teeth bottom right without swelling or drainage. Cardiovascular: S1S2 reg, no murmur, positive posterior tibial pulse bilateral, Lungs: CTA bilateral, no rhonchi, no rales , no accessory muscle use Abdominal: soft, nontender to palpation, no guarding, no appreciable organomegaly Ext: no gross muscle atrophy, 2+ edema b/l lower extremities, no contractures Neuro: CN II-XI grossly intact, no focal neuro deficits Psych: Alert, oriented, appropriate affect A total of 35 minutes of time were spent preparing this complex discharge summary. Patient was discharged on 10/20/23. This dictation was prepared using [employer] voice recognition software. Though every attempt is made to correct errors during dictation some may still exist. Patient Condition at Discharge: Stable Plan - Discharge Summary Discharge Rx Participant: No New Discharge Prescriptions: Continue RX: Levothyroxine Sodium [Synthroid] 100 mcg PO DAILY RX: Methenamine Hippurate 1 gm PO BID RX: Mirabegron [Myrbetriq] 25 mg PO DAILY RX: Fenofibrate [Lofibra] 160 mg PO HS tab RX: Rivaroxaban [Xarelto] 20 mg PO HS tab RX: Promethazine [Phenergan] 25 mg PO TID PRN PRN Reason: Nausea RX: Levothyroxine Sodium [Synthroid] 125 mcg PO MOTUWETH RX: Albuterol Inhaler [Ventolin Hfa Inhaler] 2 puff INHALATION RT-Q4H PRN PRN Reason: Shortness Of Breath RX: Dexlansoprazole [Dexilant] 60 mg PO DAILY RX: Galcanezumab-Gnlm [Emgality Pen] 120 mg SQ Q30D RX: Baclofen [Lioresal] 20 mg PO QID RX: polyethylene glycoL 3350 [Miralax] 17 gm PO DAILY PRN PRN Reason: Constipation RX: [place] Carbonate [[place] Carbonate ER] 300 mg PO TID RX: cloNIDine HCL [Kapvay] 0.2 mg PO DAILY RX: Prochlorperazine [Compro] 25 mg RECTAL Q8H PRN PRN Reason: Nausea RX: Rimegepant Sulfate [Nurtec Odt] 75 mg PO DAILY PRN PRN Reason: Migraine Headache RX: HYDROcodone/APAP 7.5-325MG [[place] 7.5-325] 1 tab PO Q8H PRN PRN Reason: Pain RX: Pioglitazone [Actos] 45 mg PO DAILY RX: Famotidine 40 mg PO HS RX: Metoprolol Succinate (ER) [Toprol XL] 100 mg PO DAILY RX: Phenazopyridine HCl [Uristat Ultra] 99.5 mg PO DAILY PRN PRN Reason: urinary pain RX: cloNIDine HCL [Catapres] 0.1 mg PO HS RX: modafiniL [Provigil] 400 mg PO DAILY RX: Meloxicam [Mobic] 15 mg PO DAILY RX: Trimethoprim [Trimpex] 100 mg PO DAILY RX: Latanoprost [Latanoprost 0.005%] 1 drop BOTH EYES HS RX: Sucralfate [Carafate] 1 gm PO TID-W/MEALS PRN PRN Reason: Gi Upset RX: Ammonium Lactate Lotion [Lac-Hydrin 12% Lotion] 1 applic TOPICAL DAILY RX: Dexmethylphenidate HCl [Focalin Xr] 10 mg PO DAILY RX: Ketoconazole 2% Shampoo [Nizoral] 1 applic TOPICAL SUWE RX: Mag Hydrox/Al Hydrox/Simeth [Maalox] 30 ml PO QID PRN PRN Reason: gi upset RX: Metoclopramide [Reglan] 10 mg PO ACHS PRN PRN Reason: Nausea RX: predniSONE 5 mg PO W/BRKFST RX: Rizatriptan Benzoate [Rizatriptan] 5 mg PO BID PRN PRN Reason: Migraine Headache RX: Silver Sulfadiazine [Silver Sulfadiazine 1%] 1 applic TOPICAL BID PRN PRN Reason: sores RX: Ezetimibe [Zetia] 10 mg PO HS RX: Cyanocobalamin (Vitamin B-12) [Vitamin B-12] 1,000 mcg PO DAILY RX: busPIRone HCL [Buspar] 30 mg PO BID RX: Fluticasone/Vilanterol [Breo Ellipta 100-25 Mcg Inhaler] 1 puff INHALATION RT-DAILY RX: Ondansetron Odt [Zofran ODT] 8 mg PO TID PRN PRN Reason: Nausea RX: Fluticasone Nasal [place] [Flonase Nasal [place]] 2 spr EA NOSTRIL BID RX: traZODone HCL 200 mg PO HS RX: Dicyclomine HCl 20 mg PO Q6H PRN PRN Reason: Gi Upset RX: cloNIDine HCL [Kapvay] 0.1 mg PO HS RX: sitaGLIPtin [Januvia] 100 mg PO DAILY RX: glipiZIDE 10 mg PO AC-BRKFST RX: Semaglutide [Ozempic] 2 mg SQ SA RX: diazePAM [Valium] 5 mg PO DAILY PRN PRN Reason: Anxiety RX: Triamcinolone 0.5% Cream [Kenalog 0.5% Cream] 1 applic TOPICAL BID PRN PRN Reason: Rash RX: Butalbital/Aspirin/Caffeine [Msolzp-Ljxkytb-Zdivbwhn 50-325-40 mg] 1 tab PO TID PRN PRN Reason: Migraine Headache RX: Diclofenac Sodium Gel [Voltaren 1% Gel] 4 gm TOPICAL QID PRN PRN Reason: Pain Sodium Chloride 0.9% Solution 2,000 ml IV DAILY RX: Lactulose 10 - 20 gm PO BID PRN PRN Reason: Constipation RX: Brexpiprazole [Rexulti] 2 mg PO BID RX: Gabapentin 600 mg PO TID RX: Glycopyrrolate [Robinul Forte] 2 mg PO TID RX: Linaclotide [Linzess] 72 mcg PO DAILY RX: Loratadine [Claritin] 10 mg PO DAILY RX: Lil-Xfew-Szzwg Acid [-U Capsule (formulary)] 1 cap PO W/BRKFST RX: fluvoxaMINE MALEATE [Luvox] 25 mg PO HS Discontinued RX: tiZANidine HCL 2 mg PO DAILY PRN PRN Reason: Muscle Pain Discharge Medication List RX: Levothyroxine Sodium [Synthroid] 100 mcg PO DAILY 01/16/19 [History] RX: Methenamine Hippurate 1 gm PO BID 07/12/19 [History] RX: Mirabegron [Myrbetriq] 25 mg PO DAILY 10/08/19 [History] RX: Fenofibrate [Lofibra] 160 mg PO HS tab 10/17/19 [Rx] RX: Rivaroxaban [Xarelto] 20 mg PO HS tab 10/17/19 [Rx] RX: Promethazine [Phenergan] 25 mg PO TID PRN 11/30/19 [History] RX: Levothyroxine Sodium [Synthroid] 125 mcg PO MOTUWETH 12/28/19 [History] RX: Albuterol Inhaler [Ventolin Hfa Inhaler] 2 puff INHALATION RT-Q4H PRN 09/19/20 [History] RX: Dexlansoprazole [Dexilant] 60 mg PO DAILY 09/19/20 [History] RX: Galcanezumab-Gnlm [Emgality Pen] 120 mg SQ Q30D 09/19/20 [History] RX: Cyanocobalamin (Vitamin B-12) [Vitamin B-12] 1,000 mcg PO DAILY 06/01/21 [History] RX: Ezetimibe [Zetia] 10 mg PO HS 06/01/21 [History] RX: busPIRone HCL [Buspar] 30 mg PO BID 06/01/21 [History] RX: Baclofen [Lioresal] 20 mg PO QID 06/02/21 [History] RX: Fluticasone/Vilanterol [Breo Ellipta 100-25 Mcg Inhaler] 1 puff INHALATION RT-DAILY 09/27/21 [History] RX: Ondansetron Odt [Zofran ODT] 8 mg PO TID PRN 09/27/21 [History] RX: polyethylene glycoL 3350 [Miralax] 17 gm PO DAILY PRN 09/27/21 [History] RX: Fluticasone Nasal [place] [Flonase Nasal [place]] 2 spr EA NOSTRIL BID 04/26/22 [History] RX: [place] Carbonate [[place] Carbonate ER] 300 mg PO TID 04/26/22 [History] RX: traZODone HCL 200 mg PO HS 04/26/22 [History] RX: Dicyclomine HCl 20 mg PO Q6H PRN 06/23/22 [History] RX: Prochlorperazine [Compro] 25 mg RECTAL Q8H PRN 06/23/22 [History] RX: Rimegepant Sulfate [Nurtec Odt] 75 mg PO DAILY PRN 06/23/22 [History] RX: cloNIDine HCL [Kapvay] 0.2 mg PO DAILY 06/23/22 [History] RX: HYDROcodone/APAP 7.5-325MG [[place] 7.5-325] 1 tab PO Q8H PRN 10/07/22 [History] RX: Pioglitazone [Actos] 45 mg PO DAILY 10/07/22 [History] RX: Semaglutide [Ozempic] 2 mg SQ SA 10/07/22 [History] RX: cloNIDine HCL [Kapvay] 0.1 mg PO HS 10/07/22 [History] RX: glipiZIDE 10 mg PO AC-BRKFST 10/07/22 [History] RX: sitaGLIPtin [Januvia] 100 mg PO DAILY 10/07/22 [History] RX: Famotidine 40 mg PO HS 11/07/22 [History] RX: Metoprolol Succinate (ER) [Toprol XL] 100 mg PO DAILY 11/07/22 [History] RX: Phenazopyridine HCl [Uristat Ultra] 99.5 mg PO DAILY PRN 11/07/22 [History] RX: cloNIDine HCL [Catapres] 0.1 mg PO HS 12/15/22 [History] RX: diazePAM [Valium] 5 mg PO DAILY PRN 02/18/23 [History] RX: Meloxicam [Mobic] 15 mg PO DAILY 03/15/23 [History] RX: modafiniL [Provigil] 400 mg PO DAILY 03/15/23 [History] RX: Butalbital/Aspirin/Caffeine [Djhshb-Gcihzti-Gjjoyybs 50-325-40 mg] 1 tab PO TID PRN 04/12/23 [History] RX: Diclofenac Sodium Gel [Voltaren 1% Gel] 4 gm TOPICAL QID PRN 04/12/23 [History] RX: Latanoprost [Latanoprost 0.005%] 1 drop BOTH EYES HS 04/12/23 [History] RX: Triamcinolone 0.5% Cream [Kenalog 0.5% Cream] 1 applic TOPICAL BID PRN 04/12/23 [History] RX: Trimethoprim [Trimpex] 100 mg PO DAILY 04/12/23 [History] Sodium Chloride 0.9% Solution 2,000 ml IV DAILY 04/12/23 [History] RX: Brexpiprazole [Rexulti] 2 mg PO BID 06/13/23 [History] RX: Lactulose 10 - 20 gm PO BID PRN 06/13/23 [History] RX: Sucralfate [Carafate] 1 gm PO TID-W/MEALS PRN 06/13/23 [History] RX: Ammonium Lactate Lotion [Lac-Hydrin 12% Lotion] 1 applic TOPICAL DAILY 10/17/23 [History] RX: Dexmethylphenidate HCl [Focalin Xr] 10 mg PO DAILY 10/17/23 [History] RX: Gabapentin 600 mg PO TID 10/17/23 [History] RX: Glycopyrrolate [Robinul Forte] 2 mg PO TID 10/17/23 [History] RX: Ketoconazole 2% Shampoo [Nizoral] 1 applic TOPICAL SUWE 10/17/23 [History] RX: Linaclotide [Linzess] 72 mcg PO DAILY 10/17/23 [History] RX: Loratadine [Claritin] 10 mg PO DAILY 10/17/23 [History] RX: Mag Hydrox/Al Hydrox/Simeth [Maalox] 30 ml PO QID PRN 10/17/23 [History] RX: Metoclopramide [Reglan] 10 mg PO ACHS PRN 10/17/23 [History] RX: Eew-Oqjx-Fkgxs Acid [-U Capsule (formulary)] 1 cap PO W/BRKFST 10/17/23 [History] RX: Rizatriptan Benzoate [Rizatriptan] 5 mg PO BID PRN 10/17/23 [History] RX: Silver Sulfadiazine [Silver Sulfadiazine 1%] 1 applic TOPICAL BID PRN [History] RX: fluvoxaMINE MALEATE [Luvox] 25 mg PO HS 10/17/23 [History] RX: predniSONE 5 mg PO W/BRKFST 10/17/23 [History] Follow up Appointment(s)/Referral(s): René Carrillo MD [Primary Care Provider] - [facility] - As Needed Care,[facility] [NON-STAFF] - As Needed [facility], [REFERRING] - As Needed Patient Instructions/Handouts: Fever in Adults (GEN) Activity/Diet/Wound Care/Special Instructions: Activity: As tolerated Diet: Carb consistent Special Instructions: Please follow-up with a dentist Some of your symptoms may be coming from the amount and combination of medications your are taking. Please speak with Dr. Carrillo about streamlining your medications. Please hold your diabetic medications and slowly restart once you feel like your appetite is back to normal. Discharge Disposition: HOME SELF-CARE
== END 2023-10-20 11:45 | disposition home or self-care (01) | DRG 864 ==
LOC: EC 06:59 → 6NMEDSUR 13:59 → OBSVTOIN 10-19 13:29
PROVIDERS: ADMIT Student in an Organized Health Care Education/Training Program; ATTEND Student in an Organized Health Care Education/Training Program
DX: R50.9 Fever, unspecified (principal); E88.40 Mitochondrial metabolism disorder, unspecified; Z45.2 Encounter for adjustment and management of vascular access device; M32.9 Systemic lupus erythematosus, unspecified; E11.43 Type 2 diabetes mellitus with diabetic autonomic (poly)neuropathy; I11.9 Hypertensive heart disease without heart failure; G90.1 Familial dysautonomia [Riley-Day]; G47.419 Narcolepsy without cataplexy; E06.3 Autoimmune thyroiditis; K31.84 Gastroparesis; E28.2 Polycystic ovarian syndrome; K52.9 Noninfective gastroenteritis and colitis, unspecified; E78.5 Hyperlipidemia, unspecified; H91.90 Unspecified hearing loss, unspecified ear; I95.1 Orthostatic hypotension; T50.995A Adverse effect of other drugs, medicaments and biological substances, initial encounter; G47.33 Obstructive sleep apnea (adult) (pediatric); G93.2 Benign intracranial hypertension; R53.82 Chronic fatigue, unspecified; F31.9 Bipolar disorder, unspecified; F41.9 Anxiety disorder, unspecified; I89.0 Lymphedema, not elsewhere classified; Z20.822 Contact with and (suspected) exposure to COVID-19; Z86.73 Personal history of transient ischemic attack (TIA), and cerebral infarction without residual deficits; Z86.718 Personal history of other venous thrombosis and embolism; Z86.14 Personal history of Methicillin resistant Staphylococcus aureus infection; Z79.01 Long term (current) use of anticoagulants; Z79.890 Hormone replacement therapy; Z79.899 Other long term (current) drug therapy; Z79.51 Long term (current) use of inhaled steroids; Z79.84 Long term (current) use of oral hypoglycemic drugs; Z79.85 Long-term (current) use of injectable non-insulin antidiabetic drugs; Z79.1 Long term (current) use of non-steroidal anti-inflammatories (NSAID); Z91.010 Allergy to peanuts; Z88.8 Allergy status to other drugs, medicaments and biological substances; Z88.2 Allergy status to sulfonamides; Z88.1 Allergy status to other antibiotic agents; Z91.048 Other nonmedicinal substance allergy status; Z99.3 Dependence on wheelchair; Z79.52 Long term (current) use of systemic steroids; Z51.5 Encounter for palliative care; S02.5XXA Fracture of tooth (traumatic), initial encounter for closed fracture
CPT/HCPCS: 36415; 71046; 80048; 80053; 80178; 80202; 81003; 83036; 83605; 85025; 86140; 87040; 87636; 94640; 96361; 96365; 96366; 96367; 96375; 99285

== ENCOUNTER 2023-12-25 16:19 | Emergency (ER) | payer MEDICARE, OTHER ==
--- NOTE | 2023-12-25 16:31 | ED ---
Fever HPI - General Stated Complaint: Fever Time Seen by Provider: 12/25/23 16:19 Source: patient, RN notes reviewed, old records reviewed Mode of arrival: EMS - History of Present Illness Initial Comments: 43-year-old female with a prior history of diabetes and history of frequent UTIs and urosepsis who states she had the onset last evening fever nausea some lightheadedness dizziness with movement she states she feels very thirsty. She was brought in by EMS and found to have a blood sugar of 434 also a oral temperature of 104.4 Fahrenheit. She denies any dysuria hematuria cough rhinorrhea sore throat earaches no other complaints at this time. She states she does have a Mediport in the left upper chest wall this is her home IV fluids and IV antibiotics when needed because of her frequent urinary tract infections. Initially stated that she had a racing heart and some shortness of breath. MD Complaint: fever - Related Data Home Medications Medication Instructions Recorded Confirmed Levothyroxine Sodium [Synthroid] 100 mcg PO DAILY 01/16/19 10/17/23 Methenamine Hippurate 1 gm PO BID 07/12/19 10/17/23 Mirabegron [Myrbetriq] 25 mg PO DAILY 10/08/19 10/17/23 Promethazine [Phenergan] 25 mg PO TID PRN 11/30/19 10/17/23 Levothyroxine Sodium [Synthroid] 125 mcg PO MOTUWETH 12/28/19 10/17/23 Albuterol Inhaler [Ventolin Hfa 2 puff INHALATION RT-Q4H PRN 09/19/20 10/17/23 Inhaler] Dexlansoprazole [Dexilant] 60 mg PO DAILY 09/19/20 10/17/23 Galcanezumab-Gnlm [Emgality Pen] 120 mg SQ Q30D 09/19/20 10/17/23 Cyanocobalamin (Vitamin B-12) 1,000 mcg PO DAILY 06/01/21 10/17/23 [Vitamin B-12] Ezetimibe [Zetia] 10 mg PO HS 06/01/21 10/17/23 busPIRone HCL [Buspar] 30 mg PO BID 06/01/21 10/17/23 Baclofen [Lioresal] 20 mg PO QID 06/02/21 10/17/23 Fluticasone/Vilanterol [Breo 1 puff INHALATION RT-DAILY 09/27/21 10/17/23 Ellipta 100-25 Mcg Inhaler] Ondansetron Odt [Zofran ODT] 8 mg PO TID PRN 09/27/21 10/17/23 polyethylene glycoL 3350 [Miralax] 17 gm PO DAILY PRN 09/27/21 10/17/23 Fluticasone Nasal Cord [Flonase 2 spr EA NOSTRIL BID 04/26/22 10/17/23 Nasal Cord] Goodwin Carbonate [Goodwin 300 mg PO TID 04/26/22 10/17/23 Carbonate ER] traZODone HCL 200 mg PO HS 04/26/22 10/17/23 Dicyclomine HCl 20 mg PO Q6H PRN 06/23/22 10/17/23 Prochlorperazine [Compro] 25 mg RECTAL Q8H PRN 06/23/22 10/17/23 Rimegepant Sulfate [Nurtec Odt] 75 mg PO DAILY PRN 06/23/22 10/17/23 cloNIDine HCL [Kapvay] 0.2 mg PO DAILY 06/23/22 10/17/23 HYDROcodone/APAP 7.5-325MG [[place] 1 tab PO Q8H PRN 10/07/22 10/17/23 7.5-325] Pioglitazone [Actos] 45 mg PO DAILY 10/07/22 10/17/23 Semaglutide [Ozempic] 2 mg SQ SA 10/07/22 10/17/23 cloNIDine HCL [Kapvay] 0.1 mg PO HS 10/07/22 10/17/23 glipiZIDE 10 mg PO AC-BRKFST 10/07/22 10/17/23 sitaGLIPtin [Januvia] 100 mg PO DAILY 10/07/22 10/17/23 Famotidine 40 mg PO HS 11/07/22 10/17/23 Metoprolol Succinate (ER) [Toprol 100 mg PO DAILY 11/07/22 10/17/23 XL] Phenazopyridine HCl [Uristat Ultra] 99.5 mg PO DAILY PRN 11/07/22 10/17/23 cloNIDine HCL [Catapres] 0.1 mg PO HS 12/15/22 10/17/23 diazePAM [Valium] 5 mg PO DAILY PRN 02/18/23 10/17/23 Meloxicam [Mobic] 15 mg PO DAILY 03/15/23 10/17/23 modafiniL [Provigil] 400 mg PO DAILY 03/15/23 10/17/23 Butalbital/Aspirin/Caffeine 1 tab PO TID PRN 04/12/23 10/17/23 [Ywowfr-Vskbgry-Hcqiqzns 50-325-40 mg] Diclofenac Sodium Gel [Voltaren 1% 4 gm TOPICAL QID PRN 04/12/23 10/17/23 Gel] Latanoprost [Latanoprost 0.005%] 1 drop BOTH EYES HS 04/12/23 10/17/23 Sodium Chloride 0.9% Solution 2,000 ml IV DAILY 04/12/23 10/17/23 Triamcinolone 0.5% Cream [Kenalog 1 applic TOPICAL BID PRN 04/12/23 10/17/23 0.5% Cream] Trimethoprim [Trimpex] 100 mg PO DAILY 04/12/23 10/17/23 Brexpiprazole [Rexulti] 2 mg PO BID 06/13/23 10/17/23 Lactulose 10 - 20 gm PO BID PRN 06/13/23 10/17/23 Sucralfate [Carafate] 1 gm PO TID-W/MEALS PRN 06/13/23 10/17/23 Ammonium Lactate Lotion 1 applic TOPICAL DAILY 10/17/23 10/17/23 [Lac-Hydrin 12% Lotion] Dexmethylphenidate HCl [Focalin Xr] 10 mg PO DAILY 10/17/23 10/17/23 Gabapentin 600 mg PO TID 10/17/23 10/17/23 Glycopyrrolate [Robinul Forte] 2 mg PO TID 10/17/23 10/17/23 Ketoconazole 2% Shampoo [Nizoral] 1 applic TOPICAL SUWE 10/17/23 10/17/23 Linaclotide [Linzess] 72 mcg PO DAILY 10/17/23 10/17/23 Loratadine [Claritin] 10 mg PO DAILY 10/17/23 10/17/23 Mag Hydrox/Al Hydrox/Simeth 30 ml PO QID PRN 10/17/23 10/17/23 [Maalox] Metoclopramide [Reglan] 10 mg PO ACHS PRN 10/17/23 10/17/23 Cnd-Fuhc-Oajmb Acid 1 cap PO W/BRKFST 10/17/23 10/17/23 [-U Capsule (formulary)] Rizatriptan Benzoate [Rizatriptan] 5 mg PO BID PRN 10/17/23 10/17/23 Silver Sulfadiazine [Silver 1 applic TOPICAL BID PRN 10/17/23 10/17/23 Sulfadiazine 1%] fluvoxaMINE MALEATE [Luvox] 25 mg PO HS 10/17/23 10/17/23 predniSONE 5 mg PO W/BRKFST 10/17/23 10/17/23 Previous Rx's Medication Instructions Recorded Fenofibrate [Lofibra] 160 mg PO HS tab 10/17/19 Rivaroxaban [Xarelto] 20 mg PO HS tab 10/17/19 methylPREDNISolone Dose Pack 4 mg PO DIRECTED #1 packet 12/25/23 [Medrol Dose Pack] Allergies Allergy/AdvReac Type Severity Reaction Status Date / Time peanut oil Allergy Severe Nausea & Verified 10/17/23 14:42 Vomiting,itching barium sulfate Allergy Anaphylaxis Verified 10/17/23 14:42 doxepin [Doxepin] Allergy Anaphylaxis Verified 10/17/23 14:42 ephedrine Allergy Chest Verified 10/17/23 14:42 Pain/tachycardia ertapenem [From Invanz] Allergy Rash/Hives- Verified 10/17/23 14:42 like a chemical burn peanut Allergy Anaphylaxis Verified 10/17/23 14:42 pseudoephedrine Allergy Chest Pain Verified 10/17/23 14:42 Sulfa (Sulfonamide Allergy Nausea & Verified 10/17/23 14:42 Antibiotics) Vomiting, DEHYDRATION sumatriptan [From Imitrex] Allergy affects Verified 10/17/23 14:42 vision-unable to see for hrs. doxycycline AdvReac Nausea & Verified 10/17/23 14:42 Vomiting & Diarrhea pseudoephedrine HCl AdvReac chest Verified 10/17/23 14:42 [From Sudafed] pain/tachycardia sulfamethoxazole AdvReac Nausea & Verified 10/17/23 14:42 [From Bactrim] Vomiting Adhesive Tape AdvReac Rash/Hives Uncoded 10/17/23 07:51 Review of Systems ROS Statement: Those systems with pertinent positive or pertinent negative responses have been documented in the HPI. ROS Other: All systems not noted in ROS Statement are negative. 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 Lymphedema left arm due to DVTs, avoid use of left arm for BP, IV, blood draws. Hx Vtach, pituitary microadenoma, patent foramen ovale, narcolepsy, gastropareis, hx orthostatic hypotension/syncope, migraines with hemiplegia, pernicious anemia, polycystic ovarian syndrome, neuropathy bilateral legs/feet/arms, uses wheelchair, able to transfer and walk few steps. CPAP use. Lupus anticoagulation syndrome. Enlarged liver. History of Any Multi-Drug Resistant Organisms: ESBL, MRSA Date of last positivie culture/infection: 12/20/22 ESBL E.coli; 03/09/17 MRSA MDRO Source:: Urine-ESBL; Left Arm-MRSA Past Surgical History: Cholecystectomy, Uterine Ablation Additional Past Surgical History / Comment(s): Colonscopy/EGD, GERSON, PORT-A-CATH INSERTION X3, PICC line insertion and later removed. Past Anesthesia/Blood Transfusion Reactions: Previous Problems w/ Anesthesia, Motion Sickness Additional Past Anesthesia/Blood Transfusion Reaction / Comment(s): Patient states difficult to sedate. Hx blood transfusions with no issues. Past Psychological History: Anxiety, Bipolar, Depression, PTSD Smoking Status: Never smoker Past Alcohol Use History: Rare Past Drug Use History: None Reported - Past Family History Brother(s) Family Medical History: Diabetes Mellitus, Hyperlipidemia, Hypertension Additional Family Medical History / Comment(s): Patient states she has 1 brother with no major medical problems. Father History Unknown: Yes Family Medical History: Diabetes Mellitus, Hyperlipidemia, Hypertension Mother Family Medical History: CVA/TIA, Diabetes Mellitus, Deep Vein Thrombosis (DVT) Additional Family Medical History / Comment(s): Antiphospholipid antibody syndrome, Lupus, dementia. Multiple DVT's and Strokes. General Exam - General Exam Comments Initial Comments: This is a well-developed well-nourished awake alert oriented x 4 female General appearance: alert, in no apparent distress Head exam: Present: atraumatic, normocephalic, normal inspection Eye exam: Present: normal appearance, PERRL, EOMI. Absent: scleral icterus, conjunctival injection, periorbital swelling ENT exam: Present: mucous membranes dry Neck exam: Present: normal inspection, full ROM, other (No stridor JVD or bruits). Absent: tenderness, meningismus, lymphadenopathy Respiratory exam: Present: normal lung sounds bilaterally. Absent: respiratory distress, wheezes, rales, rhonchi, stridor Cardiovascular Exam: Present: regular rate, normal rhythm, normal heart sounds. Absent: systolic murmur, diastolic murmur, rubs, gallop, clicks GI/Abdominal exam: Present: soft, tenderness (Mild epigastric discomfort to palpation with no guarding rebound masses or bruits), normal bowel sounds. Absent: distended, guarding, rebound, rigid Extremities exam: Present: normal inspection, full ROM, normal capillary refill. Absent: tenderness, pedal edema, joint swelling, calf tenderness Back exam: Present: normal inspection Neurological exam: Present: alert, oriented X3, CN II-XII intact Psychiatric exam: Present: normal affect, normal mood Skin exam: Present: warm, dry, intact, normal color. Absent: rash Course Vital Signs 12/25/23 16:24 Temperature 103.1 F H Pulse Rate 108 H Respiratory 19 Rate Blood Pressure 101/66 O2 Sat by Pulse 95 Oximetry Medical Decision Making - Medical Decision Making I did discuss the findings with the patient. CAT scan was negative for PE she does have nodules at the bases of the lungs that she does about already. She does demonstrate evidence of dehydration she did have an elevated lactic acid which is secondary to volume depletion elevated temperature likely secondary to viral etiology. Patient feels much improved after IV fluids she will be discharged with instructions for increasing her oral fluids as well as using her inhalers and updrafts that she has at home she will be given a short course of steroids her blood sugar has improved with IV hydration. Was pt. sent in by a medical professional or institution (, PA, HIGH V[employer]TAGE ELECTRICIAN, urgent care, hospital, or half-way...) When possible be specific @ -No Did you speak to anyone other than the patient for history (EMS, parent, family, police, friend...)? What history was obtained from this source @ -No Did you review nursing and triage notes (agree or disagree)? Why? @ -I reviewed and agree with nursing and triage notes Were old charts reviewed (outside hosp., previous admission, EMS record, old EKG, old radiological studies, urgent care reports/EKG's, half-way records)? Report findings @ -Old charts were reviewed Differential Diagnosis (chest pain, altered mental status, abdominal pain women, abdominal pain men, vaginal bleeding, weakness, fever, dyspnea, syncope, headache, dizziness, GI bleed, back pain, seizure, CVA, palpatations, mental health, musculoskeletal)? @ -Not applicable EKG interpreted by me (3pts min.). @ -As above EKG interpreted by me sinus tachycardia rate of 106 parable 148 QRS ration 90 QT/QTc 332/394 nonspecific anterior configuration is compared with an EKG dated 04/12/2023 X-rays interpreted by me (1pt min.). @ -Interpreted by me no acute findings CT interpreted by me (1pt min.). @ -Interpreted by me no evidence of PE evidence of pulmonary nodularity which has been seen before. The patient is aware of this. U/S interpreted by me (1pt. min.). @ -None done What testing was considered but not performed or refused? (CT, X-rays, U/S, labs)? Why? @ -None What meds were considered but not given or refused? Why? @ -None Did you discuss the management of the patient with other professionals (professionals i.e. , PA, HIGH VOLTAGE ELECTRICIAN, lab, RT, psych nurse, hospice social worker, manager human resources, teacher, lodge officer, family independence case manager)? Give summary @ -No Was smoking cessation discussed for >3mins.? @ -No Was critical care preformed (if so, how long)? @ -No Were there social determinants of health that impacted care today? How? (Homelessness, low income, unemployed, alcoholism, drug addiction, transportation, low edu. Level, literacy, decrease access to med. care, [facility], rehab)? @ -No Was there de-escalation of care discussed even if they declined (Discuss DNR or withdrawal of care, Hospice)? DNR status @ -No What co-morbidities impacted this encounter? (DM, HTN, Smoking, COPD, CAD, Cancer, CVA, ARF, Chemo, Hep., AIDS, mental health diagnosis, sleep apnea, morbi d obesity)? @ -Asthma, diabetes, mitochondrial disease Was patient admitted / discharged? Hospital course, mention meds given and route, prescriptions, significant lab abnormalities, going to OR and other pertinent info. @ -Hospital course and was discharged home with course of oral steroids incre ase oral fluids follow-up with her family doctor and return if needed Undiagnosed new problem with uncertain prognosis? @ -No Drug Therapy requiring intensive monitoring for toxicity (Heparin, Nitro, Insulin, Cardizem)? @ -No Were any procedures done? @ -No Diagnosis/symptom? @ -Febrile illness, viral syndrome, dehydration, elevated lactic acid, elevated glucose secondary to volume depletion, asthma exacerbation Acute, or Chronic, or Acute on Chronic? @ -Acute Uncomplicated (without systemic symptoms) or Complicated (systemic symptoms)? @ -Default Side effects of treatment? @ -No Exacerbation, Progression, or Severe Exacerbation? @ -Exacerbation Poses a threat to life or bodily function? How? (Chest pain, USA, SD, pneumonia, PE, COPD, DKA, ARF, appy, cholecystitis, CVA, Diverticulitis, Homicidal, Suicidal, threat to staff... and all critical care pts) @ -No - Lab Data Result diagrams: 12/25/23 17:57 12/25/23 17:57 Lab Results 12/25/23 12/25/23 12/25/23 Range/Units 17:57 17:57 17:57 WBC 10.1 (3.8-10.6) k/uL RBC 3.92 (3.80-5.40) m/uL Hgb 12.0 (11.4-16.0) gm/dL Hct 35.5 (34.0-46.0) % MCV 90.6 (80.0-100.0) fL MCH 30.7 (25.0-35.0) pg MCHC 33.9 (31.0-37.0) g/dL RDW 14.1 (11.5-15.5) % Plt Count 266 (150-450) k/uL MPV 7.9 Neutrophils % 93 % Lymphocytes % 2 % Monocytes % 4 % Eosinophils % 0 % Basophils % 0 % Neutrophils # 9.4 H (1.3-7.7) k/uL Lymphocytes # 0.2 L (1.0-4.8) k/uL Monocytes # 0.4 (0-1.0) k/uL Eosinophils # 0.0 (0-0.7) k/uL Basophils # 0.0 (0-0.2) k/uL D-Dimer (<0.60) mg/L FEU Sodium 137 (137-145) mmol/L Potassium 4.1 (3.5-5.1) mmol/L Chloride 108 H (98-107) mmol/L Carbon Dioxide 15 L (22-30) mmol/L Anion Gap 14 mmol/L BUN 7 (7-17) mg/dL Creatinine 0.67 (0.52-1.04) mg/dL Est GFR (CKD-EPI)AfAm >90 (>60 ml/min/1.73 sqM) Est GFR (CKD-EPI)NonAf >90 (>60 ml/min/1.73 sqM) Glucose 268 H (74-99) mg/dL Lactic Ac Sepsis Rflx Plasma Lactic Acid Joce (0.7-2.0) mmol/L Calcium 9.8 (8.4-10.2) mg/dL Magnesium 1.6 (1.6-2.3) mg/dL Total Bilirubin 0.4 (0.2-1.3) mg/dL AST 37 H (14-36) U/L ALT 32 (4-34) U/L Alkaline Phosphatase 56 (38-126) U/L Troponin I <0.012 (0.000-0.034) ng/mL Total Protein 6.7 (6.3-8.2) g/dL Albumin 4.1 (3.5-5.0) g/dL Lipase 42 (23-300) U/L Urine Color Urine Appearance (Clear) Urine pH (5.0-8.0) Ur Specific [place] (1.001-1.035) Urine Protein (Negative) Urine Glucose (UA) (Negative) Urine Ketones (Negative) Urine Blood (Negative) Urine Nitrite (Negative) Urine Bilirubin (Negative) Urine Urobilinogen (<2.0) mg/dL Ur Leukocyte Esterase (Negative) Urine RBC (0-5) /hpf Urine WBC (0-5) /hpf Ur Squamous Epith Cells (0-4) /hpf Urine Bacteria (None) /hpf Urine Mucus (None) /hpf Urine HCG, Qual (Not Detectd) Acetone, Qual Negative (Negative) Influenza Type A (PCR) (Not Detectd) Influenza Type B (PCR) (Not Detectd) RSV (PCR) (Not Detectd) SARS-CoV-2 (PCR) (Not Detectd) 12/25/23 12/25/23 12/25/23 Range/Units 17:57 17:58 18:48 WBC (3.8-10.6) k/uL RBC (3.80-5.40) m/uL Hgb (11.4-16.0) gm/dL Hct (34.0-46.0) % MCV (80.0-100.0) fL MCH (25.0-35.0) pg MCHC (31.0-37.0) g/dL RDW (11.5-15.5) % Plt Count (150-450) k/uL MPV Neutrophils % % Lymphocytes % % Monocytes % % Eosinophils % % Basophils % % Neutrophils # (1.3-7.7) k/uL Lymphocytes # (1.0-4.8) k/uL Monocytes # (0-1.0) k/uL Eosinophils # (0-0.7) k/uL Basophils # (0-0.2) k/uL D-Dimer 2.34 H (<0.60) mg/L FEU Sodium (137-145) mmol/L Potassium (3.5-5.1) mmol/L Chloride (98-107) mmol/L Carbon Dioxide (22-30) mmol/L Anion Gap mmol/L BUN (7-17) mg/dL Creatinine (0.52-1.04) mg/dL Est GFR (CKD-EPI)AfAm (>60 ml/min/1.73 sqM) Est GFR (CKD-EPI)NonAf (>60 ml/min/1.73 sqM) Glucose (74-99) mg/dL Lactic Ac Sepsis Rflx Y Plasma Lactic Acid Joce 2.3 H* (0.7-2.0) mmol/L Calcium (8.4-10.2) mg/dL Magnesium (1.6-2.3) mg/dL Total Bilirubin (0.2-1.3) mg/dL AST (14-36) U/L ALT (4-34) U/L Alkaline Phosphatase (38-126) U/L Troponin I (0.000-0.034) ng/mL Total Protein (6.3-8.2) g/dL Albumin (3.5-5.0) g/dL Lipase (23-300) U/L Urine Color Urine Appearance (Clear) Urine pH (5.0-8.0) Ur Specific [place] (1.001-1.035) Urine Protein (Negative) Urine Glucose (UA) (Negative) Urine Ketones (Negative) Urine Blood (Negative) Urine Nitrite (Negative) Urine Bilirubin (Negative) Urine Urobilinogen (<2.0) mg/dL Ur Leukocyte Esterase (Negative) Urine RBC (0-5) /hpf Urine WBC (0-5) /hpf Ur Squamous Epith Cells (0-4) /hpf Urine Bacteria (None) /hpf Urine Mucus (None) /hpf Urine HCG, Qual (Not Detectd) Acetone, Qual (Negative) Influenza Type A (PCR) (Not Detectd) Influenza Type B (PCR) (Not Detectd) RSV (PCR) (Not Detectd) SARS-CoV-2 (PCR) (Not Detectd) 12/25/23 12/25/23 12/25/23 Range/Units 19:02 19:02 19:02 WBC (3.8-10.6) k/uL RBC (3.80-5.40) m/uL Hgb (11.4-16.0) gm/dL Hct (34.0-46.0) % MCV (80.0-100.0) fL MCH (25.0-35.0) pg MCHC (31.0-37.0) g/dL RDW (11.5-15.5) % Plt Count (150-450) k/uL MPV Neutrophils % % Lymphocytes % % Monocytes % % Eosinophils % % Basophils % % Neutrophils # (1.3-7.7) k/uL Lymphocytes # (1.0-4.8) k/uL Monocytes # (0-1.0) k/uL Eosinophils # (0-0.7) k/uL Basophils # (0-0.2) k/uL D-Dimer (<0.60) mg/L FEU Sodium (137-145) mmol/L Potassium (3.5-5.1) mmol/L Chloride (98-107) mmol/L Carbon Dioxide (22-30) mmol/L Anion Gap mmol/L BUN (7-17) mg/dL Creatinine (0.52-1.04) mg/dL Est GFR (CKD-EPI)AfAm (>60 ml/min/1.73 sqM) Est GFR (CKD-EPI)NonAf (>60 ml/min/1.73 sqM) Glucose (74-99) mg/dL Lactic Ac Sepsis Rflx Plasma Lactic Acid Joce (0.7-2.0) mmol/L Calcium (8.4-10.2) mg/dL Magnesium (1.6-2.3) mg/dL Total Bilirubin (0.2-1.3) mg/dL AST (14-36) U/L ALT (4-34) U/L Alkaline Phosphatase (38-126) U/L Troponin I (0.000-0.034) ng/mL Total Protein (6.3-8.2) g/dL Albumin (3.5-5.0) g/dL Lipase (23-300) U/L Urine Color Light Yellow Urine Appearance Clear (Clear) Urine pH 7.5 (5.0-8.0) Ur Specific [place] 1.017 (1.001-1.035) Urine Protein 1+ H (Negative) Urine Glucose (UA) 4+ H (Negative) Urine Ketones Negative (Negative) Urine Blood Negative (Negative) Urine Nitrite Negative (Negative) Urine Bilirubin Negative (Negative) Urine Urobilinogen <2.0 (<2.0) mg/dL Ur Leukocyte Esterase Negative (Negative) Urine RBC 1 (0-5) /hpf Urine WBC 1 (0-5) /hpf Ur Squamous Epith Cells 4 (0-4) /hpf Urine Bacteria Rare H (None) /hpf Urine Mucus Rare H (None) /hpf Urine HCG, Qual Not Detected (Not Detectd) Acetone, Qual (Negative) Influenza Type A (PCR) Not Detected (Not Detectd) Influenza Type B (PCR) Not Detected (Not Detectd) RSV (PCR) Not Detected (Not Detectd) SARS-CoV-2 (PCR) Not Detected (Not Detectd) Disposition Clinical Impression: Febrile illness, acute, Viral syndrome, Dehydration, Asthma exacerbation, Elevated lactic acid level, Hyperglycemia Disposition: HOME SELF-CARE Condition: Good Instructions (If sedation given, give patient instructions): Fever in Adults (ED), Asthma (ED), Managing Diabetes During Sick Days (ED), Dehydration in Children (DC) Prescriptions: methylPREDNISolone Dose Pack [Medrol Dose Pack] 4 mg PO DIRECTED #1 packet Is patient prescribed a controlled substance at d/c from ED?: No Referrals: Ashvin Caballero MD [REFERRING] - 1-2 days Time of Disposition: 21:17 Decision Date: 12/25/23 Decision Time: 21:17
[2023-12-25 18:11] LABS: Basophils % (A) 0 %; Eosinophils % (A) 0 %; HCT 35.5 % (34.0-46.0); Lymphocytes # (A) 0.2 k/uL (1.0-4.8); Lymphocytes % (A) 2 %; MCH 30.7 pg (25.0-35.0); MCHC 33.9 g/dL (31.0-37.0); MCV 90.6 fL (80.0-100.0); Mean Platelet Volume 7.9; Monocytes # (A) 0.4 k/uL (0-1.0); Monocytes % (A) 4 %; Neutrophils # (A) 9.4 k/uL (1.3-7.7); Neutrophils % (A) 93 %; Platelet Count 266 k/uL (150-450); RBC 3.92 m/uL (3.80-5.40); RDW 14.1 % (11.5-15.5); WBC 10.1 k/uL (3.8-10.6)
--- NOTE | 2023-12-25 18:21 | XR ---
EXAMINATION TYPE: XR chest 2V DATE OF EXAM: 12/25/2023 6:04 PM CLINICAL INDICATION:Female, 43 years old with history of Fever; [facility] COMPARISON: 10/17/2023 TECHNIQUE: XR chest 2V. Frontal and lateral views of the chest.. FINDINGS: Lines/Tubes/Devices: Stable left chest [id number] with tip over the IVC/RA junction. Heart/mediastinum: Heart size is normal. Mediastinum appears normal. Pulmonary vascularity: Not increased, Lungs/Pleura: There is no evidence of pleural effusion, focal consolidation, or pneumothorax. Musculoskeletal: No acute osseous abnormality demonstrated in the limits of the exam. Mild degenerat willie disc disease of the dorsal spine. Other findings: None. IMPRESSION: No acute cardiopulmonary abnormality.
[2023-12-25] MEDS: ACETAMINOPHEN TAB 325 MG TAB PO STA (18:28)
[2023-12-25 18:36] LABS: ALT 32 U/L (4-34); AST 37 U/L (14-36); African American GFR (CKD) >90 (>60 ml/min/1.73 sqM); Albumin 4.1 g/dL (3.5-5.0); Alkaline Phosphatase 56 U/L (38-126); Anion Gap 14 mmol/L; Blood Urea Nitrogen 7 mg/dL (7-17); Calcium 9.8 mg/dL (8.4-10.2); Carbon Dioxide 15 mmol/L (22-30); Chloride 108 mmol/L (98-107); Glucose 268 mg/dL (74-99); Lipase 42 U/L (23-300); Magnesium 1.6 mg/dL (1.6-2.3); Non-African American GFR(CKD) >90 (>60 ml/min/1.73 sqM); Potassium 4.1 mmol/L (3.5-5.1); Sodium 137 mmol/L (137-145); Total Bilirubin 0.4 mg/dL (0.2-1.3); Total Protein 6.7 g/dL (6.3-8.2)
[2023-12-25] MEDS: SODIUM CHLORIDE 0.9% 1,000 ML IV STA (18:38)
[2023-12-25 19:28] LABS: Appearance,Urine Clear (Clear); Bacteria,Urine Rare /hpf; Bilirubin,Urine Negative (Negative); Blood,Urine Negative (Negative); Color,Urine Light Yellow; Glucose,Urine (UA) 4+ (Negative); Ketones,Urine Negative (Negative); Leukocyte Esterase,Urine Negative (Negative); Mucus,Urine Rare /hpf; Nitrite,Urine Negative (Negative); PH, Urine 7.5 (5.0-8.0); Protein,Urine 1+ (Negative); RBC,Urine 1 /hpf (0-5); Specific Gravity,Urine 1.017 (1.001-1.035); Squamous Epithelial Cell,Urine 4 /hpf (0-4); Urobilinogen,Urine <2.0 mg/dL (<2.0); WBC,Urine 1 /hpf (0-5)
[2023-12-25] MEDS: SODIUM CHLORIDE 0.9% 500 ML 500 ML IV ONE (19:59)
--- NOTE | 2023-12-25 20:43 | CT ---
EXAMINATION TYPE: CT angio chest CT DLP: 415.3 mGycm, Automated exposure control for dose reduction was used. DATE OF EXAM: 12/25/2023 8:18 PM COMPARISON: Same day chest x-ray CLINICAL INDICATION:Female, 43 years old with history of elevated d-dimer; elevated d dimer TECHNIQUE/CONTRAST: CTA scan of the thorax is performed with IV Contrast, patient injected with 100ml mL of Isovue 370, M IP images are created and reviewed these are created on a separate workstation.. FINDINGS: There is adequate contrast bolus and timing. Some limitation by streak artifact resulting from dense contrast in the IVC. There is a left chest Urqgij-r-Zbty with catheter tip terminating at the IVC/RA junction. PULMONARY ARTERIES: There is no evidence for a filling defect within the pulmonary vasculature to sug gest acute pulmonary embolism. The pulmonary trunk is enlarged, this can be seen with pulmonary hyper tension. Trunk measures 3.3 CM. HEART: Normal heart size. No significant coronary calcifications visible. Tiny pericardial effusion. AORTA: Minimal atherosclerotic calcifications of the aorta. Ascending aorta is 2.9 CM, descending is 2 CM. Aorta is considered within normal limits in size. LOWER NECK: No significant findings. MEDIASTINUM: No gross evidence of adenopathy. SOFT TISSUES/LYMPH NODES: Unremarkable soft tissues. No axillary adenopathy. LUNGS/ PLEURA: There are several noncalcified solid appearing bilateral pulmonary nodules, largest 7. 7 mm in the right lower lobe image 64 series 506. There are a few scattered focal and nodular groundg lass opacities in the bilateral lungs, for example on the left images 43 through 47 in the upper lobe and image 106 in the lower lobe, and on the right images 93-96 in the right lower lobe, and images 7 3-75 in the right middle lobe. No large area of consolidation is seen. No pleural effusion or pneumo thorax. AIRWAY: Central airways are patent. MUSCULOSKELETAL: No acute osseous abnormality. Mild disc degeneration changes are present throughout the included thoracolumbar spine. UPPER ABDOMEN: No significant findings. Mildly thickened adrenals without evidence of mass. IMPRESSION: 1. No evidence of pulmonary embolism. 2. Enlarged pulmonary trunk, suggestive of pulmonary hypertension. 3. Multiple solid appearing bilateral pulmonary nodules, largest 7.7 mm in the right lower lobe. Greyson mmend follow-up per below Fleischner criteria. 4. A few scattered focal and nodular groundglass opacities in the bilateral lungs, nonspecific but li dipak represent infectious/inflammatory process. These can be reassessed for resolution on subsequent follow-up imaging. FLEISCHNER CRITERIA 2017 SOLID NODULES: Multiple: When multiple nodules are present, the most suspicious nodule should guide f urther individualized management. Multiple solid nodules <6 mm (<100 mm3) Low-risk patients: no routine follow-up required High-risk patients: optional CT at 12 months Multiple solid nodules >6 mm (>100 mm3) Low-risk patients: CT at 3-6 months, then consider CT at 18-24 months High-risk patients: CT at 3-6 months, then CT at 18-24 months Guideline Exclusions: 1. Patients aged 35 years or younger 2. Patients with known malignancy 3. Immunocompromised patients 4. Lung cancer screening population Low risk: no (or minimal) smoking history, no prior cancer, smooth margin nodule High risk: Heavy smoking history, emphysema/pulmonary fibrosis, prior cancer, irregular margins More information on the management of solid pulmonary nodules can be found at: http://pubs.rsna.org/doi/abs/10.1148/radiol.[email or web address]
[2023-12-25 21:51] VITALS: BP 109/77; PULSE 106; RESP 20; TEMP 100.5
== END 2023-12-25 21:46 | disposition home or self-care (01) ==
LOC: EC 16:19
DX: B34.9 Viral infection, unspecified (principal); E86.0 Dehydration; J45.901 Unspecified asthma with (acute) exacerbation; R74.02 Elevation of levels of lactic acid dehydrogenase [LDH]; E11.65 Type 2 diabetes mellitus with hyperglycemia; I10 Essential (primary) hypertension; G47.30 Sleep apnea, unspecified; E07.9 Disorder of thyroid, unspecified; F41.9 Anxiety disorder, unspecified; F31.9 Bipolar disorder, unspecified; Z79.890 Hormone replacement therapy; Z79.899 Other long term (current) drug therapy; Z79.51 Long term (current) use of inhaled steroids; Z20.822 Contact with and (suspected) exposure to COVID-19; Z79.84 Long term (current) use of oral hypoglycemic drugs; Z88.1 Allergy status to other antibiotic agents; Z88.2 Allergy status to sulfonamides; Z91.09 Other allergy status, other than to drugs and biological substances; Z88.8 Allergy status to other drugs, medicaments and biological substances; Z91.010 Allergy to peanuts
CPT/HCPCS: 36415; 93005; 85379; 80053; 82009; 83605; 83690; 83735; 84484; 85025; 81001; 81025; 87040; 87077; 87186; 84145; 87636; 71046; 71275; 99285; 96374; 96361 ×3; J1642; Q9967

== ENCOUNTER 2023-12-29 15:02 | Inpatient (IN) | payer MEDICARE, OTHER ==
[2023-12-29] MEDS ORDERED: VANCOMYCIN IV PER PHARMACY 1 EACH MISC MISCELLANE PRN (16:40)
--- NOTE | 2023-12-29 17:02 | ED ---
Recheck HPI - General Chief Complaint: Recheck/Abnormal Lab/Rx Stated Complaint: Abn Labs Time Seen by Provider: 12/29/23 16:30 Source: patient, RN notes reviewed Mode of arrival: ambulatory Limitations: no limitations - History of Present Illness Initial Comments: This is a 43-year-old female who presents to the emergency department for positive blood cultures. Patient was here 4 days ago for fevers, shortness of breath, coughing, and fatigue. She was discharged home, however blood cultures were obtained. States that she received a call stating that these returned positive for MRSA. She did see her primary care provider yesterday and was started her on cefdinir for possible pneumonia. However, states that she is continuing to get worse. Reports increasing shortness of breath, coughing, nausea, vomiting, and headaches. She gives herself IV Zofran at home via her Mediport along with IV fluids, however this has not been very effective. She is also unable to completely manage her fever with the Motrin and Tylenol. MD Complaint: abnormal lab - Related Data Home Medications Medication Instructions Recorded Confirmed Levothyroxine Sodium [Synthroid] 100 mcg PO DAILY 01/16/19 10/17/23 Methenamine Hippurate 1 gm PO BID 07/12/19 10/17/23 Mirabegron [Myrbetriq] 25 mg PO DAILY 10/08/19 10/17/23 Promethazine [Phenergan] 25 mg PO TID PRN 11/30/19 10/17/23 Levothyroxine Sodium [Synthroid] 125 mcg PO MOTUWETH 12/28/19 10/17/23 Albuterol Inhaler [Ventolin Hfa 2 puff INHALATION RT-Q4H PRN 09/19/20 10/17/23 Inhaler] Dexlansoprazole [Dexilant] 60 mg PO DAILY 09/19/20 10/17/23 Galcanezumab-Gnlm [Emgality Pen] 120 mg SQ Q30D 09/19/20 10/17/23 Cyanocobalamin (Vitamin B-12) 1,000 mcg PO DAILY 06/01/21 10/17/23 [Vitamin B-12] Ezetimibe [Zetia] 10 mg PO HS 06/01/21 10/17/23 busPIRone HCL [Buspar] 30 mg PO BID 06/01/21 10/17/23 Baclofen [Lioresal] 20 mg PO QID 06/02/21 10/17/23 Fluticasone/Vilanterol [Breo 1 puff INHALATION RT-DAILY 09/27/21 10/17/23 Ellipta 100-25 Mcg Inhaler] Ondansetron Odt [Zofran ODT] 8 mg PO TID PRN 09/27/21 10/17/23 polyethylene glycoL 3350 [Miralax] 17 gm PO DAILY PRN 09/27/21 10/17/23 Fluticasone Nasal [place] [Flonase 2 spr EA NOSTRIL BID 04/26/22 10/17/23 Nasal [place]] [place] Carbonate [[place] 300 mg PO TID 04/26/22 10/17/23 Carbonate ER] traZODone HCL 200 mg PO HS 04/26/22 10/17/23 Dicyclomine HCl 20 mg PO Q6H PRN 06/23/22 10/17/23 Prochlorperazine [Compro] 25 mg RECTAL Q8H PRN 06/23/22 10/17/23 Rimegepant Sulfate [Nurtec Odt] 75 mg PO DAILY PRN 06/23/22 10/17/23 cloNIDine HCL [Kapvay] 0.2 mg PO DAILY 06/23/22 10/17/23 HYDROcodone/APAP 7.5-325MG [[place] 1 tab PO Q8H PRN 10/07/22 10/17/23 7.5-325] Pioglitazone [Actos] 45 mg PO DAILY 10/07/22 10/17/23 Semaglutide [Ozempic] 2 mg SQ SA 10/07/22 10/17/23 cloNIDine HCL [Kapvay] 0.1 mg PO HS 10/07/22 10/17/23 glipiZIDE 10 mg PO AC-BRKFST 10/07/22 10/17/23 sitaGLIPtin [Januvia] 100 mg PO DAILY 10/07/22 10/17/23 Famotidine 40 mg PO HS 11/07/22 10/17/23 Metoprolol Succinate (ER) [Toprol 100 mg PO DAILY 11/07/22 10/17/23 XL] Phenazopyridine HCl [Uristat Ultra] 99.5 mg PO DAILY PRN 11/07/22 10/17/23 cloNIDine HCL [Catapres] 0.1 mg PO HS 12/15/22 10/17/23 diazePAM [Valium] 5 mg PO DAILY PRN 02/18/23 10/17/23 Meloxicam [Mobic] 15 mg PO DAILY 03/15/23 10/17/23 modafiniL [Provigil] 400 mg PO DAILY 03/15/23 10/17/23 Butalbital/Aspirin/Caffeine 1 tab PO TID PRN 04/12/23 10/17/23 [Yscsgg-Hvfcltm-Yldbgxaj 50-325-40 mg] Diclofenac Sodium Gel [Voltaren 1% 4 gm TOPICAL QID PRN 04/12/23 10/17/23 Gel] Latanoprost [Latanoprost 0.005%] 1 drop BOTH EYES HS 04/12/23 10/17/23 Sodium Chloride 0.9% Solution 2,000 ml IV DAILY 04/12/23 10/17/23 Triamcinolone 0.5% Cream [Kenalog 1 applic TOPICAL BID PRN 04/12/23 10/17/23 0.5% Cream] Trimethoprim [Trimpex] 100 mg PO DAILY 04/12/23 10/17/23 Brexpiprazole [Rexulti] 2 mg PO BID 06/13/23 10/17/23 Lactulose 10 - 20 gm PO BID PRN 06/13/23 10/17/23 Sucralfate [Carafate] 1 gm PO TID-W/MEALS PRN 06/13/23 10/17/23 Ammonium Lactate Lotion 1 applic TOPICAL DAILY 10/17/23 10/17/23 [Lac-Hydrin 12% Lotion] Dexmethylphenidate HCl [Focalin Xr] 10 mg PO DAILY 10/17/23 10/17/23 Gabapentin 600 mg PO TID 10/17/23 10/17/23 Glycopyrrolate [Robinul Forte] 2 mg PO TID 10/17/23 10/17/23 Ketoconazole 2% Shampoo [Nizoral] 1 applic TOPICAL SUWE 10/17/23 10/17/23 Linaclotide [Linzess] 72 mcg PO DAILY 10/17/23 10/17/23 Loratadine [Claritin] 10 mg PO DAILY 10/17/23 10/17/23 Mag Hydrox/Al Hydrox/Simeth 30 ml PO QID PRN 10/17/23 10/17/23 [Maalox] Metoclopramide [Reglan] 10 mg PO ACHS PRN 10/17/23 10/17/23 Zti-Ibxs-Audwy Acid 1 cap PO W/BRKFST 10/17/23 10/17/23 [-U Capsule (formulary)] Rizatriptan Benzoate [Rizatriptan] 5 mg PO BID PRN 10/17/23 10/17/23 Silver Sulfadiazine [Silver 1 applic TOPICAL BID PRN 10/17/23 10/17/23 Sulfadiazine 1%] fluvoxaMINE MALEATE [Luvox] 25 mg PO HS 10/17/23 10/17/23 predniSONE 5 mg PO W/BRKFST 10/17/23 10/17/23 Previous Rx's Medication Instructions Recorded Fenofibrate [Lofibra] 160 mg PO HS tab 10/17/19 Rivaroxaban [Xarelto] 20 mg PO HS tab 10/17/19 methylPREDNISolone Dose Pack 4 mg PO DIRECTED #1 packet 12/25/23 [Medrol Dose Pack] Allergies Allergy/AdvReac Type Severity Reaction Status Date / Time peanut oil Allergy Severe Nausea & Verified 12/29/23 15:40 Vomiting,itching barium sulfate Allergy Anaphylaxis Verified 12/29/23 15:40 doxepin [Doxepin] Allergy Anaphylaxis Verified 12/29/23 15:40 ephedrine Allergy Chest Verified 12/29/23 15:40 Pain/tachycardia ertapenem [From Invanz] Allergy Rash/Hives- Verified 12/29/23 15:40 like a chemical burn peanut Allergy Anaphylaxis Verified 12/29/23 15:40 pseudoephedrine Allergy Chest Pain Verified 12/29/23 15:40 Sulfa (Sulfonamide Allergy Nausea & Verified 12/29/23 15:40 Antibiotics) Vomiting, DEHYDRATION sumatriptan [From Imitrex] Allergy affects Verified 12/29/23 15:40 vision-unable to see for hrs. doxycycline AdvReac Nausea & Verified 12/29/23 15:40 Vomiting & Diarrhea pseudoephedrine HCl AdvReac chest Verified 12/29/23 15:40 [From Sudafed] pain/tachycardia sulfamethoxazole AdvReac Nausea & Verified 12/29/23 15:40 [From Bactrim] Vomiting Adhesive Tape AdvReac Rash/Hives Uncoded 12/29/23 15:40 Review of Systems ROS Statement: Those systems with pertinent positive or pertinent negative responses have been documented in the HPI. ROS Other: All systems not noted in ROS Statement are negative. 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 Lymphedema left arm due to DVTs, avoid use of left arm for BP, IV, blood draws. Hx Vtach, pituitary microadenoma, patent foramen ovale, narcolepsy, gastropareis, hx orthostatic hypotension/syncope, migraines with hemiplegia, pernicious anemia, polycystic ovarian syndrome, neuropathy bilateral legs/feet/arms, uses wheelchair, able to transfer and walk few steps. CPAP use. Lupus anticoagulation syndrome. Enlarged liver. History of Any Multi-Drug Resistant Organisms: ESBL, MRSA Date of last positivie culture/infection: 12/20/22 ESBL E.coli; 03/09/17 MRSA MDRO Source:: Urine-ESBL; Left Arm-MRSA Past Surgical History: Cholecystectomy, Uterine Ablation Additional Past Surgical History / Comment(s): Colonscopy/EGD, GERSON, PORT-A-CATH INSERTION X3, PICC line insertion and later removed. Past Anesthesia/Blood Transfusion Reactions: Previous Problems w/ Anesthesia, Motion Sickness Additional Past Anesthesia/Blood Transfusion Reaction / Comment(s): Patient states difficult to sedate. Hx blood transfusions with no issues. Past Psychological History: Anxiety, Bipolar, Depression, PTSD Smoking Status: Never smoker Past Alcohol Use History: Rare Past Drug Use History: None Reported - Past Family History Brother(s) Family Medical History: Diabetes Mellitus, Hyperlipidemia, Hypertension Additional Family Medical History / Comment(s): Patient states she has 1 brother with no major medical problems. Father History Unknown: Yes Family Medical History: Diabetes Mellitus, Hyperlipidemia, Hypertension Mother Family Medical History: CVA/TIA, Diabetes Mellitus, Deep Vein Thrombosis (DVT) Additional Family Medical History / Comment(s): Antiphospholipid antibody syndrome, Lupus, dementia. Multiple DVT's and Strokes. General Exam Limitations: no limitations General appearance: alert, in distress Head exam: Present: atraumatic, normocephalic, normal inspection Respiratory exam: Present: normal lung sounds bilaterally. Absent: respiratory distress, wheezes, rales, rhonchi, stridor Cardiovascular Exam: Present: normal rhythm, tachycardia GI/Abdominal exam: Present: soft, normal bowel sounds. Absent: distended, tenderness, guarding, rebound, rigid Neurological exam: Present: alert, oriented X3, CN II-XII intact Psychiatric exam: Present: normal affect, normal mood Skin exam: Present: warm, dry, intact, normal color. Absent: rash Course Vital Signs 12/29/23 12/29/23 12/29/23 15:36 16:30 17:43 Temperature 99.8 F H Pulse Rate 109 H 96 Respiratory 20 20 20 Rate Blood Pressure 131/74 122/70 O2 Sat by Pulse 96 93 L Oximetry 12/29/23 18:46 Temperature 99.4 F Pulse Rate 100 Respiratory 20 Rate Blood Pressure 110/67 O2 Sat by Pulse 93 L Oximetry Medical Decision Making - Medical Decision Making This is a 43-year-old female who presents to the emergency department for positive blood cultures, fevers, coughing, and shortness of breath. Was pt. sent in by a medical professional or institution? @ -No Did you speak to anyone other than the patient for history? @ -No Did you review nursing and triage notes? @ -Yes, and I agree, it is accurate with regards to the patient's symptoms. Were old charts reviewed? @ -Blood culture from 12/25/23 which was positive for MRSA. CTA of the chest from 12/25/23 demonstrated scattered focal and nodular ground glass opacities in the bilateral lungs that were nonspecific but likely infectious/inflammatory in nature. Differential Diagnosis? @ -Differential Fever: Pneumonia, viral URI, endocarditis, myocarditis, pericarditis, otitis, sinusitis, peritonsillar Abscess, retropharyngeal Abscess, epiglottitis, peritonitis, appendicitis, Yoli cystitis, diverticulitis, hepatitis, colitis, UTI, PID, TOA, pyelonephritis, prostatitis, epididymitis, meningitis, encephalitis, pulmonary embolism, CVA, thyroid storm, pancreatitis, adrenal crisis, cavernous sinus thrombosis, this is not meant to be an all-inclusive list. EKG interpreted by me (3pts min.)? @ -EKG interpreted by me demonstrating the following: Sinus rhythm. Ventric ular rate 95 beats per minute, WV interval 135 ms, QRS duration 101 ms, QTC 424 ms. X-rays interpreted by me (1pt min.)? @ -Chest x-ray obtained. My interpretation identifies an opacity in the right upper lung. CT interpreted by me (1pt min.)? @ -Not obtained U/S interpreted by me (1pt. min.)? @ -Not obtained What testing was considered but not performed? (CT, X-rays, U/S, labs)? Why? @ -None What meds were considered but not given? Why? @ -None Did you discuss the management of the patient with other professionals? @ -Yes, Dr. Jarrell, who accepts the patient for admission. Did you reconcile home meds? @ -No Was smoking cessation discussed for >3mins.? @ -No Was critical care preformed (if so, how long)? @ -No Were there social determinants of health that impacted care today? How? (Homelessness, low income, unemployed, alcoholism, drug addiction, transportation, low edu. Level, literacy, decrease access to med. care, skilled nursing, r ehab)? @ -No Was there de-escalation of care discussed even if they declined? (Discuss DNR or withdrawal of care, Hospice)? @ -No What co-morbidities impacted this encounter? (DM, HTN, Smoking, COPD, CAD, Cancer, CVA, Hep., AIDS, mental health diagnosis, sleep apnea, morbid obesity)? @ -Asthma, DM, HLD, HTN, mitochondrial metabolism disorder Was patient admitted / discharged? @ -Admitted. Lab work reveals an elevated CRP of 37.1. She has no leukocytosis at this time. COVID, influenza, and RSV testing were negative. Urinalysis negative for signs of infection. She was tachycardic on arrival. Temperature was elevated at 99.8F, but did not initially cross the febrile threshold. Blood culture from 12/25 reviewed which is positive for MRSA. Chest x-ray reveals findings concerning for multifocal bronchopneumonia. Blood culture sensitivity report was reviewed and the MRSA was shown to be sensitive to vancomycin which was initiated. She was also started on the pneumonia protocol with ceftriaxone and azithromycin. Patient admitted to medicine for MRSA bacteremia and multifocal pneumonia. Undiagnosed new problem with uncertain prognosis? @ -None Drug Therapy requiring intensive monitoring for toxicity (Heparin, Nitro, Insulin, Cardizem)? @ -None Were any procedures done? @ -None Diagnosis/symptom? @ -MRSA bacteremia, multifocal pneumonia Acute, or Chronic, or Acute on Chronic? @ -Acute Uncomplicated (without systemic symptoms) or Complicated (systemic symptoms)? @ -Complicated Side effects of treatment? @ -None Exacerbation, Progression, or Severe Exacerbation] @ -Not applicable Poses a threat to life or bodily function? @ -Yes This case was discussed in detail with the attending ED physician, Dr. Bahena. Presentation, findings, and treatment plan discussed in detail as well. - Lab Data Result diagrams: 12/29/23 16:40 12/29/23 16:40 Lab Results 12/29/23 12/29/23 12/29/23 Range/Units 16:40 16:40 16:40 WBC 9.2 (3.8-10.6) k/uL RBC 3.27 L (3.80-5.40) m/uL Hgb 9.7 L D (11.4-16.0) gm/dL Hct 29.2 L (34.0-46.0) % MCV 89.4 (80.0-100.0) fL MCH 29.7 (25.0-35.0) pg MCHC 33.2 (31.0-37.0) g/dL RDW 14.7 (11.5-15.5) % Plt Count 214 (150-450) k/uL MPV 9.1 Neutrophils % 82 % Lymphocytes % 10 % Monocytes % 6 % Eosinophils % 0 % Basophils % 0 % Neutrophils # 7.6 (1.3-7.7) k/uL Lymphocytes # 0.9 L (1.0-4.8) k/uL Monocytes # 0.5 (0-1.0) k/uL Eosinophils # 0.0 (0-0.7) k/uL Basophils # 0.0 (0-0.2) k/uL PT 10.8 (10.0-12.5) sec INR 1.0 (<1.2) APTT 35.7 H (22.0-30.0) sec Sodium 133 L (137-145) mmol/L Potassium 3.6 (3.5-5.1) mmol/L Chloride 106 (98-107) mmol/L Carbon Dioxide 18 L (22-30) mmol/L Anion Gap 9 mmol/L BUN 10 (7-17) mg/dL Creatinine 0.49 L (0.52-1.04) mg/dL Est GFR (CKD-EPI)AfAm >90 (>60 ml/min/1.73 sqM) Est GFR (CKD-EPI)NonAf >90 (>60 ml/min/1.73 sqM) Glucose 237 H (74-99) mg/dL Plasma Lactic Acid Joce (0.7-2.0) mmol/L Calcium 8.9 (8.4-10.2) mg/dL Total Bilirubin 0.4 (0.2-1.3) mg/dL AST 30 (14-36) U/L ALT 34 (4-34) U/L Alkaline Phosphatase 79 (38-126) U/L Troponin I (0.000-0.034) ng/mL C-Reactive Protein 37.1 H (<1.0) mg/dL Total Protein 5.5 L (6.3-8.2) g/dL Albumin 3.0 L (3.5-5.0) g/dL Urine Color Urine Appearance (Clear) Urine pH (5.0-8.0) Ur Specific [place] (1.001-1.035) Urine Protein (Negative) Urine Glucose (UA) (Negative) Urine Ketones (Negative) Urine Blood (Negative) Urine Nitrite (Negative) Urine Bilirubin (Negative) Urine Urobilinogen (<2.0) mg/dL Ur Leukocyte Esterase (Negative) Urine HCG, Qual (Not Detectd) Influenza Type A (PCR) (Not Detectd) Influenza Type B (PCR) (Not Detectd) RSV (PCR) (Not Detectd) SARS-CoV-2 (PCR) (Not Detectd) 12/29/23 12/29/23 12/29/23 Range/Units 16:40 16:42 17:01 WBC (3.8-10.6) k/uL RBC (3.80-5.40) m/uL Hgb (11.4-16.0) gm/dL Hct (34.0-46.0) % MCV (80.0-100.0) fL MCH (25.0-35.0) pg MCHC (31.0-37.0) g/dL RDW (11.5-15.5) % Plt Count (150-450) k/uL MPV Neutrophils % % Lymphocytes % % Monocytes % % Eosinophils % % Basophils % % Neutrophils # (1.3-7.7) k/uL Lymphocytes # (1.0-4.8) k/uL Monocytes # (0-1.0) k/uL Eosinophils # (0-0.7) k/uL Basophils # (0-0.2) k/uL PT (10.0-12.5) sec INR (<1.2) APTT (22.0-30.0) sec Sodium (137-145) mmol/L Potassium (3.5-5.1) mmol/L Chloride (98-107) mmol/L Carbon Dioxide (22-30) mmol/L Anion Gap mmol/L BUN (7-17) mg/dL Creatinine (0.52-1.04) mg/dL Est GFR (CKD-EPI)AfAm (>60 ml/min/1.73 sqM) Est GFR (CKD-EPI)NonAf (>60 ml/min/1.73 sqM) Glucose (74-99) mg/dL Plasma Lactic Acid Joce 0.9 (0.7-2.0) mmol/L Calcium (8.4-10.2) mg/dL Total Bilirubin (0.2-1.3) mg/dL AST (14-36) U/L ALT (4-34) U/L Alkaline Phosphatase (38-126) U/L Troponin I (0.000-0.034) ng/mL C-Reactive Protein (<1.0) mg/dL Total Protein (6.3-8.2) g/dL Albumin (3.5-5.0) g/dL Urine Color Yellow Urine Appearance Clear (Clear) Urine pH 6.0 (5.0-8.0) Ur Specific [place] 1.017 (1.001-1.035) Urine Protein Trace H (Negative) Urine Glucose (UA) 1+ H (Negative) Urine Ketones Negative (Negative) Urine Blood Negative (Negative) Urine Nitrite Negative (Negative) Urine Bilirubin Negative (Negative) Urine Urobilinogen <2.0 (<2.0) mg/dL Ur Leukocyte Esterase Negative (Negative) Urine HCG, Qual (Not Detectd) Influenza Type A (PCR) Not Detected (Not Detectd) Influenza Type B (PCR) Not Detected (Not Detectd) RSV (PCR) Not Detected (Not Detectd) SARS-CoV-2 (PCR) Not Detected (Not Detectd) 12/29/23 12/29/23 Range/Units 17:01 19:20 WBC (3.8-10.6) k/uL RBC (3.80-5.40) m/uL Hgb (11.4-16.0) gm/dL Hct (34.0-46.0) % MCV (80.0-100.0) fL MCH (25.0-35.0) pg MCHC (31.0-37.0) g/dL RDW (11.5-15.5) % Plt Count (150-450) k/uL MPV Neutrophils % % Lymphocytes % % Monocytes % % Eosinophils % % Basophils % % Neutrophils # (1.3-7.7) k/uL Lymphocytes # (1.0-4.8) k/uL Monocytes # (0-1.0) k/uL Eosinophils # (0-0.7) k/uL Basophils # (0-0.2) k/uL PT (10.0-12.5) sec INR (<1.2) APTT (22.0-30.0) sec Sodium (137-145) mmol/L Potassium (3.5-5.1) mmol/L Chloride (98-107) mmol/L Carbon Dioxide (22-30) mmol/L Anion Gap mmol/L BUN (7-17) mg/dL Creatinine (0.52-1.04) mg/dL Est GFR (CKD-EPI)AfAm (>60 ml/min/1.73 sqM) Est GFR (CKD-EPI)NonAf (>60 ml/min/1.73 sqM) Glucose (74-99) mg/dL Plasma Lactic Acid Joce (0.7-2.0) mmol/L Calcium (8.4-10.2) mg/dL Total Bilirubin (0.2-1.3) mg/dL AST (14-36) U/L ALT (4-34) U/L Alkaline Phosphatase (38-126) U/L Troponin I <0.012 (0.000-0.034) ng/mL C-Reactive Protein (<1.0) mg/dL Total Protein (6.3-8.2) g/dL Albumin (3.5-5.0) g/dL Urine Color Urine Appearance (Clear) Urine pH (5.0-8.0) Ur Specific [place] (1.001-1.035) Urine Protein (Negative) Urine Glucose (UA) (Negative) Urine Ketones (Negative) Urine Blood (Negative) Urine Nitrite (Negative) Urine Bilirubin (Negative) Urine Urobilinogen (<2.0) mg/dL Ur Leukocyte Esterase (Negative) Urine HCG, Qual Not Detected (Not Detectd) Influenza Type A (PCR) (Not Detectd) Influenza Type B (PCR) (Not Detectd) RSV (PCR) (Not Detectd) SARS-CoV-2 (PCR) (Not Detectd) - Radiology Data Radiology results: report reviewed, image reviewed Disposition Clinical Impression: MRSA bacteremia, Multifocal pneumonia Disposition: ADMITTED IP TO THIS [facility] Referrals: René Carrillo DO [Primary Care Provider] - 1-2 days
[2023-12-29] MEDS: SODIUM CHLORIDE 0.9% 3,500 ML IV STA (17:20)
[2023-12-29] MEDS: ACETAMINOPHEN TAB 500 MG TAB PO STA (17:21)
[2023-12-29] MEDS: PROCHLORPERAZINE INJ 10 MG/2 ML VIAL IVP STA (17:21)
[2023-12-29] MEDS: VANCOMYCIN 1,750 MG in SODIUM CHLORIDE 0.9% 500 ML 500 ML IVPB STA (17:42)
[2023-12-29 17:51] LABS: Basophils % (A) 0 %; Eosinophils % (A) 0 %; HCT 29.2 % (34.0-46.0); Lymphocytes # (A) 0.9 k/uL (1.0-4.8); Lymphocytes % (A) 10 %; MCH 29.7 pg (25.0-35.0); MCHC 33.2 g/dL (31.0-37.0); MCV 89.4 fL (80.0-100.0); Mean Platelet Volume 9.1; Monocytes # (A) 0.5 k/uL (0-1.0); Monocytes % (A) 6 %; Neutrophils # (A) 7.6 k/uL (1.3-7.7); Neutrophils % (A) 82 %; Platelet Count 214 k/uL (150-450); RBC 3.27 m/uL (3.80-5.40); RDW 14.7 % (11.5-15.5); WBC 9.2 k/uL (3.8-10.6)
[2023-12-29 17:57] LABS: Partial Thromboplastin Time 35.7 sec (22.0-30.0); Prothrombin Time 10.8 sec (10.0-12.5)
[2023-12-29 18:05] LABS: ALT 34 U/L (4-34); AST 30 U/L (14-36); African American GFR (CKD) >90 (>60 ml/min/1.73 sqM); Alkaline Phosphatase 79 U/L (38-126); Anion Gap 9 mmol/L; Blood Urea Nitrogen 10 mg/dL (7-17); Calcium 8.9 mg/dL (8.4-10.2); Carbon Dioxide 18 mmol/L (22-30); Chloride 106 mmol/L (98-107); Glucose 237 mg/dL (74-99); Non-African American GFR(CKD) >90 (>60 ml/min/1.73 sqM); Potassium 3.6 mmol/L (3.5-5.1); Sodium 133 mmol/L (137-145); Total Bilirubin 0.4 mg/dL (0.2-1.3); Total Protein 5.5 g/dL (6.3-8.2)
[2023-12-29 18:07] LABS: Appearance,Urine Clear (Clear); Bilirubin,Urine Negative (Negative); Blood,Urine Negative (Negative); Color,Urine Yellow; Glucose,Urine (UA) 1+ (Negative); Ketones,Urine Negative (Negative); Leukocyte Esterase,Urine Negative (Negative); Nitrite,Urine Negative (Negative); Protein,Urine Trace (Negative); Specific Gravity,Urine 1.017 (1.001-1.035); Urobilinogen,Urine <2.0 mg/dL (<2.0)
[2023-12-29 18:25] LABS: HGB 9.7 gm/dL (11.4-16.0)
[2023-12-29 18:49] LABS: C Reactive Protein 37.1 mg/dL (<1.0)
--- NOTE | 2023-12-29 19:30 | XR ---
EXAMINATION: XR chest 2V: 12/29/2023 6:41 PM CLINICAL INDICATION: Fever TECHNIQUE: Departmental protocol COMPARISON: 12/25/2023 FINDINGS/IMPRESSION: There is consolidative opacity in right upper lung zone, and less conspicuous consolidative opacity i n the right perihilar position and left upper lung zone. These findings are consistent with a clinica l diagnosis of multi focal bronchopneumonia. The pleural spaces are negative. Left subclavian central line tip superimposed over the right atrium. The cardiac silhouette is not en larged. The skeletal structures and soft tissues are negative for acute findings.
[2023-12-29] MEDS ORDERED: PNEUMONIA PROTOCOL UTILIZED 1 EACH MISC PO PRN (19:33)
[2023-12-29] MEDS: AZITHROMYCIN 500 MG in SODIUM CHLORIDE 0.9% 250 ML IVPB STA (21:00)
[2023-12-29] MEDS ORDERED: NALOXONE 0.4 MG/ML 1 ML VIAL IV PRN (21:28)
[2023-12-29] MEDS: SODIUM CHLORIDE 0.9% 1,000 ML IV SCH (22:34)
[2023-12-30] MEDS: ACETAMINOPHEN TAB 325 MG TAB PO PRN (01:00)
--- NOTE | 2023-12-30 01:12 | P.HPIM ---
History of Present Illness H&P Date: 12/29/23 Chief Complaint: Positive blood culture 44-year-old female with complex past medical history with multiple comorbidities Patient coming in upon notification from our emergency department for positive blood culture with MRSA for which she came back to the hospital for further care. Patient presented initially to the hospital on December 25 where she was diagnosed with viral syndrome as she was reporting fevers chills coughing shortness of breath associated with nausea vomiting at that time she denied any chest pain denied any hemoptysis denied any diarrhea or changes in urinary habits. She is known to have frequent urinary tract infections for which she has a left Mediport for frequent IV antibiotics and IV fluids however urine analysis was negative cultures were obtained acute respiratory viral panel was negative for COVID RSV and influenza patient was discharged with a diagnosis of viral syndrome was given Medrol Dosepak and medications for symptomatic control. She continues to report worsening cough with shortness of breath again denies any hemoptysis this been going on for 5 days with recurrent fevers and chills. She denies any recent travel or hospital stay. 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 All other systems were reviewed and are negative on exam Constitutional: No acute distress, Eyes: Anicteric sclerae, moist conjunctiva, Pupils equal round reactive to light ENMT: NC/AT Oropharynx clear, no erythema, or exudates Neck: Supple, no masses, or JVD No carotid bruits No thyromegaly Lungs: Clear to auscultation Clear to percussion Normal respiratory effort, no accessory muscle use Cardiovascular: Heart regular in rate and rhythm, No murmurs, gallops, or rubs No peripheral edema Abdominal: Soft Nontender, no guarding, rebound or rigidity Abdomen moving with respiration Normoactive bowel sounds No hepatomegaly, No splenomegaly No palpable mass No abdominal wall hernia noted Extremities: No digital cyanosis No clubbing Pedal pulses intact and symmetrical Radial pulses intact and symmetrical No calf tenderness Psychiatric: Alert and oriented to person, place and time Appropriate affect fair judgement Neuro Muscles Strength 5/5 in all 4 extremities Sensation to light touch grossly present throughout Cranial nerves II-XII grossly intact Mediport site is unremarkable no surrounding erythema induration no drainage 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 Lymphedema left arm due to DVTs, avoid use of left arm for BP, IV, blood draws. Hx Vtach, pituitary microadenoma, patent foramen ovale, narcolepsy, gastropareis, hx orthostatic hypotension/syncope, migraines with hemiplegia, pernicious anemia, polycystic ovarian syndrome, neuropathy bilateral legs/feet/arms, uses wheelchair, able to transfer and walk few steps. CPAP use. Lupus anticoagulation syndrome. Enlarged liver. History of Any Multi-Drug Resistant Organisms: ESBL, MRSA Date of last positivie culture/infection: 12/20/22 ESBL E.coli; 03/09/17 MRSA MDRO Source:: Urine-ESBL; Left Arm-MRSA Past Surgical History: Cholecystectomy, Uterine Ablation Additional Past Surgical History / Comment(s): Colonscopy/EGD, GERSON, PORT-A-CATH INSERTION X3, PICC line insertion and later removed. Past Anesthesia/Blood Transfusion Reactions: Previous Problems w/ Anesthesia, Motion Sickness Additional Past Anesthesia/Blood Transfusion Reaction / Comment(s): Patient states difficult to sedate. Hx blood transfusions with no issues. Past Psychological History: Anxiety, Bipolar, Depression, PTSD Smoking Status: Never smoker Past Alcohol Use History: Rare Past Drug Use History: None Reported - Past Family History Brother(s) Family Medical History: Diabetes Mellitus, Hyperlipidemia, Hypertension Additional Family Medical History / Comment(s): Patient states she has 1 brother with no major medical problems. Father History Unknown: Yes Family Medical History: Diabetes Mellitus, Hyperlipidemia, Hypertension Mother Family Medical History: CVA/TIA, Diabetes Mellitus, Deep Vein Thrombosis (DVT) Additional Family Medical History / Comment(s): Antiphospholipid antibody syndrome, Lupus, dementia. Multiple DVT's and Strokes. Medications and Allergies Home Medications Medication Instructions Recorded Confirmed Type Levothyroxine Sodium [Synthroid] 100 mcg PO DAILY 01/16/19 12/29/23 History Methenamine Hippurate 1 gm PO BID 07/12/19 12/29/23 History Mirabegron [Myrbetriq] 25 mg PO DAILY 10/08/19 12/29/23 History Fenofibrate [Lofibra] 160 mg PO HS tab 10/17/19 12/29/23 Rx Rivaroxaban [Xarelto] 20 mg PO HS tab 10/17/19 12/29/23 Rx Promethazine [Phenergan] 25 mg PO TID PRN 11/30/19 12/29/23 History Levothyroxine Sodium [Synthroid] 125 mcg PO MOTUWETH 12/28/19 12/29/23 History Albuterol Inhaler [Ventolin Hfa 2 puff INHALATION RT-Q4H PRN 09/19/20 12/29/23 History Inhaler] Dexlansoprazole [Dexilant] 60 mg PO DAILY 09/19/20 12/29/23 History Galcanezumab-Gnlm [Emgality Pen] 120 mg SQ Q30D 09/19/20 12/29/23 History Cyanocobalamin (Vitamin B-12) 1,000 mcg PO DAILY 06/01/21 12/29/23 History [Vitamin B-12] Ezetimibe [Zetia] 10 mg PO HS 06/01/21 12/29/23 History busPIRone HCL [Buspar] 30 mg PO BID 06/01/21 12/29/23 History Baclofen [Lioresal] 20 mg PO QID 06/02/21 12/29/23 History Fluticasone/Vilanterol [Breo 1 puff INHALATION RT-DAILY 09/27/21 12/29/23 H istory Ellipta 100-25 Mcg Inhaler] Ondansetron Odt [Zofran ODT] 8 mg PO TID PRN 09/27/21 12/29/23 History polyethylene glycoL 3350 [Miralax] 17 gm PO DAILY PRN 09/27/21 12/29/23 History Fluticasone Nasal [place] [Flonase 2 spr EA NOSTRIL BID 04/26/22 12/29/23 History Nasal [place]] Poca Carbonate [Poca 300 mg PO DAILY 04/26/22 12/29/23 History Carbonate ER] traZODone HCL 200 mg PO HS 04/26/22 12/29/23 History Dicyclomine HCl 20 mg PO Q6H PRN 06/23/22 12/29/23 History Prochlorperazine [Compro] 25 mg RECTAL Q8H PRN 06/23/22 12/29/23 History Rimegepant Sulfate [Nurtec Odt] 75 mg PO DAILY PRN 06/23/22 12/29/23 History cloNIDine HCL [Kapvay] 0.2 mg PO DAILY 06/23/22 12/29/23 History Pioglitazone [Actos] 45 mg PO DAILY 10/07/22 12/29/23 History Semaglutide [Ozempic] 2 mg SQ TU 10/07/22 12/29/23 History cloNIDine HCL [Kapvay] 0.1 mg PO HS 10/07/22 12/29/23 History glipiZIDE 10 mg PO AC-BRKFST PRN 10/07/22 12/29/23 History sitaGLIPtin [Januvia] 100 mg PO DAILY 10/07/22 12/29/23 History Famotidine 40 mg PO HS 11/07/22 12/29/23 History Metoprolol Succinate (ER) [Toprol 100 mg PO DAILY 11/07/22 12/29/23 History XL] Phenazopyridine HCl [Uristat Ultra] 99.5 mg PO DAILY PRN 11/07/22 12/29/23 History cloNIDine HCL [Catapres] 0.1 mg PO HS 12/15/22 12/29/23 History diazePAM [Valium] 5 mg PO DAILY PRN 02/18/23 12/29/23 History Meloxicam [Mobic] 15 mg PO DAILY 03/15/23 12/29/23 History modafiniL [Provigil] 400 mg PO DAILY 03/15/23 12/29/23 History Butalbital/Aspirin/Caffeine 1 tab PO TID PRN 04/12/23 12/29/23 History [Kfqzei-Xspuzix-Inoakyro 50-325-40 mg] Diclofenac Sodium Gel [Voltaren 1% 4 gm TOPICAL QID PRN 04/12/23 12/29/23 History Gel] Latanoprost [Latanoprost 0.005%] 1 drop BOTH EYES HS 04/12/23 12/29/23 History Sodium Chloride 0.9% Solution 2,000 ml IV DAILY 04/12/23 12/29/23 History Triamcinolone 0.5% Cream [Kenalog 1 applic TOPICAL BID PRN 04/12/23 12/29/23 History 0.5% Cream] Trimethoprim [Trimpex] 100 mg PO DAILY 04/12/23 12/29/23 History Brexpiprazole [Rexulti] 2 mg PO BID 06/13/23 12/29/23 History Lactulose 10 - 20 gm PO BID PRN 06/13/23 12/29/23 History Sucralfate [Carafate] 1 gm PO TID-W/MEALS PRN 06/13/23 12/29/23 History Ammonium Lactate Lotion 1 applic TOPICAL DAILY 10/17/23 12/29/23 History [Lac-Hydrin 12% Lotion] Dexmethylphenidate HCl [Focalin Xr] 10 mg PO DAILY 10/17/23 12/29/23 History Gabapentin 600 mg PO TID 10/17/23 12/29/23 History Glycopyrrolate [Robinul Forte] 2 mg PO TID 10/17/23 12/29/23 History Ketoconazole 2% Shampoo [Nizoral] 1 applic TOPICAL SUWE 10/17/23 12/29/23 History Linaclotide [Linzess] 72 mcg PO DAILY 10/17/23 12/29/23 History Loratadine [Claritin] 10 mg PO DAILY 10/17/23 12/29/23 History Mag Hydrox/Al Hydrox/Simeth 30 ml PO QID PRN 10/17/23 12/29/23 History [Maalox] Metoclopramide [Reglan] 10 mg PO ACHS PRN 10/17/23 12/29/23 History Vyn-Otlc-Ksjji Acid 1 cap PO W/BRKFST 10/17/23 12/29/23 History [-U Capsule (formulary)] Rizatriptan Benzoate [Rizatriptan] 5 mg PO BID PRN 10/17/23 12/29/23 History Silver Sulfadiazine [Silver 1 applic TOPICAL BID PRN 10/17/23 12/29/23 History Sulfadiazine 1%] fluvoxaMINE MALEATE [Luvox] 50 mg PO HS 10/17/23 12/29/23 History predniSONE 5 mg PO W/BRKFST 10/17/23 12/29/23 History Cefdinir [Omnicef] 300 mg PO Q12HR 12/29/23 12/29/23 History Poca Carbonate [Poca 600 mg PO HS 12/29/23 12/29/23 History Carbonate ER] methylPREDNISolone Dose Pack See Taper PO DIRECTED 12/29/23 12/29/23 History [Medrol Dose Pack] oxyCODONE HCL [OxyIR] 5 mg PO Q6H 12/29/23 12/29/23 History Allergies Allergy/AdvReac Type Severity Reaction Status Date / Time peanut oil Allergy Severe Nausea & Verified 12/29/23 21:58 Vomiting,itching barium sulfate Allergy Anaphylaxis Verified 12/29/23 21:58 doxepin [Doxepin] Allergy Anaphylaxis Verified 12/29/23 21:58 ephedrine Allergy Chest Verified 12/29/23 21:58 Pain/tachycardia ertapenem [From Invanz] Allergy Rash/Hives- Verified 12/29/23 21:58 like a chemical burn peanut Allergy Anaphylaxis Verified 12/29/23 21:58 pseudoephedrine Allergy Chest Pain Verified 12/29/23 21:58 Sulfa (Sulfonamide Allergy Nausea & Verified 12/29/23 21:58 Antibiotics) Vomiting, DEHYDRATION sumatriptan [From Imitrex] Allergy affects Verified 12/29/23 21:58 vision-unable to see for hrs. doxycycline AdvReac Nausea & Verified 12/29/23 21:58 Vomiting & Diarrhea pseudoephedrine HCl AdvReac chest Verified 12/29/23 21:58 [From Sudafed] pain/tachycardia sulfamethoxazole AdvReac Nausea & Verified 12/29/23 21:58 [From Bactrim] Vomiting Adhesive Tape AdvReac Rash/Hives Uncoded 12/29/23 15:40 Physical Exam Vitals: Vital Signs Temp Pulse Resp BP Pulse Ox 12/29/23 18:46 99.4 F 100 20 110/67 93 L 12/29/23 17:43 96 20 122/70 93 L 12/29/23 16:30 20 12/29/23 15:36 99.8 F H 109 H 20 131/74 96 Intake and Output 12/29/23 12/29/23 12/29/23 06:59 14:59 22:59 Other: Weight 110.223 kg Results CBC & Chem 7: 12/29/23 16:40 12/29/23 16:40 Labs: Abnormal Lab Results - Last 24 Hours (Table) 12/29/23 12/29/23 12/29/23 Range/Units 16:40 16:40 16:40 RBC 3.27 L (3.80-5.40) m/uL Hgb 9.7 L D (11.4-16.0) gm/dL Hct 29.2 L (34.0-46.0) % Lymphocytes # 0.9 L (1.0-4.8) k/uL APTT 35.7 H (22.0-30.0) sec Sodium 133 L (137-145) mmol/L Carbon Dioxide 18 L (22-30) mmol/L Creatinine 0.49 L (0.52-1.04) mg/dL Glucose 237 H (74-99) mg/dL C-Reactive Protein 37.1 H (<1.0) mg/dL Total Protein 5.5 L (6.3-8.2) g/dL Albumin 3.0 L (3.5-5.0) g/dL Urine Protein (Negative) Urine Glucose (UA) (Negative) 12/29/23 Range/Units 17:01 RBC (3.80-5.40) m/uL Hgb (11.4-16.0) gm/dL Hct (34.0-46.0) % Lymphocytes # (1.0-4.8) k/uL APTT (22.0-30.0) sec Sodium (137-145) mmol/L Carbon Dioxide (22-30) mmol/L Creatinine (0.52-1.04) mg/dL Glucose (74-99) mg/dL C-Reactive Protein (<1.0) mg/dL Total Protein (6.3-8.2) g/dL Albumin (3.5-5.0) g/dL Urine Protein Trace H (Negative) Urine Glucose (UA) 1+ H (Negative) Assessment and Plan Assessment: 43-year-old female with complex past medical history presenting with 5-day history of coughing fevers chills and shortness of breath, she presented 4 days ago to the ED was diagnosed with viral syndrome however blood cultures returned positive for MRSA for which she was called back to come to the ED for further care I discussed case with ED doctor and accepted the admission for MRSA bacteremia with multifocal pneumonia with anticipated length of stay more than 2 midnights Acute hypoxic respiratory failure oxygen saturation down to 93% on room air Multifocal pneumonia MRSA bacteremia, patient has left Mediport Follow-up cultures Initiated on vancomycin dosing by pharmacy Azithromycin 500 mg daily to cover for pneumonia Vascular consult to remove left Mediport ID consult for further recommendations Tylenol for fever as needed 650 mg every 6 hours Albuterol nebulizer every 4 hours as needed Continue with Breo daily IV fluid hydration normal saline 130 cc/h status post 1 L bolus Pain control with [place] every 4 hours as needed Chest x-ray positive multifocal pneumonia Blood cultures done on December 25 positive for MRSA Renal function unremarkable sodium 133 potassium 3.6 BUN 10 creatinine 0.4 Tropes negative UA unremarkable negative Acute respiratory viral panel negative for COVID influenza and RSV Chronic conditions Mood disorder Resume lithium Hypertension continue with metoprolol, continue with clonidine home medication Hypothyroid Emily's thyroiditis continue with levothyroxine History of DVT and lupus anticoagulant syndrome continue with Xarelto 20 mg p.o. nightly Diabetes mellitus hold oral hypoglycemic agents, insulin sliding scale Full code DVT prophylaxis on Xarelto
[2023-12-30] MEDS ORDERED: DEXTROSE 50% SYRINGE 50 ML IVP PRN ×2 (01:14)
[2023-12-30] MEDS: HYDROcodone/APAP 5-325MG 1 EACH TAB PO PRN (02:29)
[2023-12-30] MEDS: VANCOMYCIN 1,750 MG in SODIUM CHLORIDE 0.9% 500 ML 500 ML IVPB SCH (03:30)
[2023-12-30] MEDS: IBUPROFEN 400 MG TAB PO PRN (04:56)
[2023-12-30 05:53] LABS: Glucose,Whole Blood 205 mg/dL (70-110)
[2023-12-30] MEDS: INSULIN ASPART (NovoLOG) 100 UNIT/ML VIAL SQ SCH (06:54)
[2023-12-30] MEDS: LEVOTHYROXINE 100 MCG TAB PO SCH (06:54)
[2023-12-30] MEDS: METOPROLOL SUCCINATE (ER) 100 MG TAB.ER.24H PO SCH (08:06)
[2023-12-30] MEDS: SYMBICORT 80-4.5 MCG INHALER INHALATION SCH (08:38)
[2023-12-30] MEDS: AZITHROMYCIN 500 MG TAB PO SCH (10:45)
[2023-12-30 10:55] LABS: Glucose,Whole Blood 185 mg/dL (70-110)
[2023-12-30] MEDS: ONDANSETRON 4 MG/2 ML VIAL IVP PRN (11:54)
[2023-12-30] MEDS: NON FORMULARY DRUG (Clonidine Hcl [Kapvay] 0.1 MG Tab.Er.12h) PO SCH (11:58)
[2023-12-30] MEDS: NON FORMULARY DRUG (Lithium Carbonate [Lithium Carbonate Er] 300 MG Tablet) PO SCH ×2 (12:02→23:04)
[2023-12-30 13:37] VITALS: BMI 40.4
--- NOTE | 2023-12-30 14:21 | P.PN ---
Subjective Progress Note Date: 12/30/23 Hospital Course: 43-year-old female with history of mitochondrial disorder, hypertension, dyslipidemia, lupus, thyroiditis?, Wsd-hcdmdgq-rpbyawqkw diabetes, obstructive sleep apnea on CPAP, multiple other comorbidities, wheelchair-bound presenting with cough, congestion, shortness of breath as well as positive blood cultures. Patient was recently in the ER 4 days ago complaining of fevers, and had blood cultures drawn which eventually turned out to be positive for MRSA. She was subsequently asked to come to the hospital. On arrival, temperature was 99.8, pulse 109, respiratory 20, blood pressure 131/74, saturating at 96% on room air. Laboratory workup showed WBC 9.2, hemoglobin 9.7 below baseline, sodium 133, bicarb 18, creatinine 0.49, glucose 237, troponin negative, CRP 37.1, respiratory viral panel negative, urinalysis negative for nitrates and leukocyte esterase. Repeat blood cultures positive for gram-positive cocci in clusters. Chest x-ray shows multifocal pneumonia ID consulted. Patient currently on vancomycin and azithromycin. Subjective: Patient seen and examined at bedside. No acute events overnight. Continues to have upper respiratory symptoms including cough, and shortness of breath. She is now requiring supplemental oxygen. Pertinent positives and negatives as discussed above, a complete review of systems was performed and all other systems are negative. Vitals Signs Reviewed. General: nontoxic, no distress, appears at stated age, obese Derm: warm, dry, Mediport site slight erythema and tenderness, no purulence noted Head: atraumatic, normocephalic, symmetric Eyes: EOMI, no lid lag, anicteric sclera Mouth: no lip lesion, mucus membranes moist Cardiovascular: S1S2 reg, no murmur Lungs: Scattered bilateral rhonchi , no accessory muscle use, supplemental oxygen Abdominal: soft, nontender to palpation, no guarding,no appreciable organomegaly Ext: no gross muscle atrophy, no edema, no contractures Neuro: CN II-XI grossly intact, no focal neuro deficits Psych: Alert, oriented, appropriate affect Data Reviewed Today: Pertinent Labs: Glucose range between 1 85-2 05, CRP 37.1, blood cultures positive for gram-positive cocci in clusters Imaging: Chest x-ray independently interpreted, shows multifocal pneumonia Assessment and Plan: Active: Sepsis secondary to MRSA bacteremia Acute hypoxic respiratory failure Multifocal pneumonia, possibly septic emboli History of mitochondrial disease, Mediport in place -Repeat cultures tomorrow, ID consulted -Chest x-ray finding concerning for possible septic emboli -CT chest ordered, echocardiogram ordered -Continue IV vancomycin, monitor for renal toxicity -Consider discontinue azithromycin -Mediport would need to be exchanged, vascular surgery has been consulted Diabetes -Hold home medications, started on sliding scale insulin Chronic: Hypertension Dyslipidemia DVT? Lupus? Hypothyroidism Depression/anxiety DVT ppx: Xarelto Code status: FC Anticipated discharge place: Pending clinical course Anticipated discharge time: Pending clinical course Objective - Vital Signs Vital signs: Vital Signs Temp 99.8 F H 12/30/23 07:30 Pulse 110 H 12/30/23 07:30 Resp 18 12/30/23 08:17 BP 135/82 12/30/23 07:30 Pulse Ox 94 L 12/30/23 08:41 FiO2 Intake & Output 12/29/23 12/30/23 12/30/23 18:59 06:59 18:59 Weight 110.223 kg 110.223 kg 110.223 kg Other: Voiding Method Bedside Commode Bedside Commode # Voids 1 - Labs CBC & Chem 7: 12/29/23 16:40 12/29/23 16:40 Labs: Abnormal Lab Results - Last 24 Hours (Table) 12/29/23 12/29/23 12/29/23 Range/Units 16:40 16:40 16:40 RBC 3.27 L (3.80-5.40) m/uL Hgb 9.7 L D (11.4-16.0) gm/dL Hct 29.2 L (34.0-46.0) % Lymphocytes # 0.9 L (1.0-4.8) k/uL APTT 35.7 H (22.0-30.0) sec Sodium 133 L (137-145) mmol/L Carbon Dioxide 18 L (22-30) mmol/L Creatinine 0.49 L (0.52-1.04) mg/dL Glucose 237 H (74-99) mg/dL POC Glucose (mg/dL) (70-110) mg/dL C-Reactive Protein 37.1 H (<1.0) mg/dL Total Protein 5.5 L (6.3-8.2) g/dL Albumin 3.0 L (3.5-5.0) g/dL Urine Protein (Negative) Urine Glucose (UA) (Negative) 12/29/23 12/30/23 12/30/23 Range/Units 17:01 05:52 10:54 RBC (3.80-5.40) m/uL Hgb (11.4-16.0) gm/dL Hct (34.0-46.0) % Lymphocytes # (1.0-4.8) k/uL APTT (22.0-30.0) sec Sodium (137-145) mmol/L Carbon Dioxide (22-30) mmol/L Creatinine (0.52-1.04) mg/dL Glucose (74-99) mg/dL POC Glucose (mg/dL) 205 H 185 H (70-110) mg/dL C-Reactive Protein (<1.0) mg/dL Total Protein (6.3-8.2) g/dL Albumin (3.5-5.0) g/dL Urine Protein Trace H (Negative) Urine Glucose (UA) 1+ H (Negative) Microbiology - Last 24 Hours (Table) 12/29/23 17:00 Blood Culture Gram Stain - Preliminary Blood 12/29/23 17:10 Blood Culture Gram Stain - Preliminary Blood
[2023-12-30] MEDS: CLONIDINE PO SCH ×2 (14:51→21:59)
--- NOTE | 2023-12-30 15:20 | CT ---
EXAMINATION TYPE: CT chest wo con CT DLP: 413.2 mGycm, Automated exposure control for dose reduction was used. DATE OF EXAM: 12/30/2023 2:36 PM COMPARISON: 12/25/2023 CLINICAL INDICATION:Female, 43 years old with history of hypoxia, concern for septic emboli; PHH, Hyp oxia, septic emboli TECHNIQUE: Multiple axial images were obtained through the chest. Sagittal and coronal reformats were created for review. Contrast used: mL of (None if empty) Oral contrast used: (None if empty) FINDINGS: LUNGS/ PLEURA: Few nodular opacities are seen most pronounced in the periphery of the lungs. Diffuse airspace opacities throughout the lungs compared to 03/10/2024. New trace bilateral pleural effusions. No evidence of pneumothorax. No cavitary lesions are identified at this time. Anterior lobular septa l thickening. Pulmonary nodules seen on prior less well appreciated. AIRWAY: Patent and unremarkable. HEART: The heart is mildly enlarged for size. MEDIASTINUM: No gross evidence of adenopathy. VASCULATURE: No evidence for aortic aneurysm. Left central venous catheter with tip in the right atri um.[id number] MUSCULOSKELETAL: No acute osseous abnormalities SOFT TISSUES/LYMPH NODES: Unremarkable. LOWER NECK: No significant findings. UPPER ABDOMEN: Diffuse low-attenuation to the liver parenchyma. IMPRESSION: 1. Interval development of diffuse airspace opacities correlate for pneumonia. 2. New nodular opacities which are also new could represent septic emboli 3. New pulmonary vascular congestion and new pleural effusions correlate for heart failure with seru m BNP.
[2023-12-30] MEDS: GABAPENTIN 300 MG CAP PO SCH (16:17)
[2023-12-30 17:12] LABS: Glucose,Whole Blood 238 mg/dL (70-110)
[2023-12-30 20:16] LABS: Glucose,Whole Blood 308 mg/dL (70-110)
[2023-12-30] MEDS: ALBUTEROL NEBULIZED 2.5 MG/3 ML INHALATION PRN (20:17)
[2023-12-30] MEDS ORDERED: RIVAROXABAN 20 MG TAB PO SCH (21:00)
[2023-12-30] MEDS ORDERED: NON FORMULARY DRUG (Clonidine Hcl [Kapvay] 0.1 MG Tab.Er.12h) PO SCH (21:00)
[2023-12-30] MEDS: busPIRone HCl 10 MG TAB PO SCH (21:57)
[2023-12-30] MEDS: FAMOTIDINE 20 MG TAB PO SCH (21:57)
[2023-12-30] MEDS: cloNIDine HCL 0.1 MG TAB PO SCH (21:58)
[2023-12-30] MEDS: FENOFIBRATE 160 MG TAB PO SCH (21:59)
[2023-12-30] MEDS: EZETIMIBE 10 MG TAB PO SCH (21:59)
[2023-12-31 06:13] LABS: Glucose,Whole Blood 146 mg/dL (70-110)
[2023-12-31] MEDS: predniSONE 5 MG TAB PO SCH (06:27)
[2023-12-31] MEDS ORDERED: ASPIRIN PO PRN (08:22)
[2023-12-31] MEDS ORDERED: BUTALBITAL PO PRN (08:22)
[2023-12-31] MEDS ORDERED: LACTULOSE 20 GM/30 ML CUP PO PRN (08:22)
[2023-12-31] MEDS ORDERED: CAFFEINE PO PRN (08:22)
[2023-12-31 08:37] LABS: Basophils # (A) 0.1 k/uL (0-0.2); Basophils % (A) 1 %; Eosinophils # (A) 0.2 k/uL (0-0.7); Eosinophils % (A) 2 %; HCT 26.5 % (34.0-46.0); HGB 8.4 gm/dL (11.4-16.0); Hypochromasia Moderate; Lymphocytes # (A) 1.3 k/uL (1.0-4.8); Lymphocytes % (A) 16 %; MCH 29.6 pg (25.0-35.0); MCHC 31.6 g/dL (31.0-37.0); MCV 93.4 fL (80.0-100.0); Mean Platelet Volume 9.7; Monocytes # (A) 0.6 k/uL (0-1.0); Monocytes % (A) 8 %; Neutrophils # (A) 5.7 k/uL (1.3-7.7); Neutrophils % (A) 71 %; Platelet Count 307 k/uL (150-450); RBC 2.84 m/uL (3.80-5.40); RDW 15.1 % (11.5-15.5)
[2023-12-31] MEDS: DEXMETHYLPHENIDATE HCL 10 MG PO SCH (08:49)
[2023-12-31] MEDS: Linaclotide [Linzess] 72 MCG Capsule PO SCH (08:49)
[2023-12-31 08:53] LABS: African American GFR (CKD) >90 (>60 ml/min/1.73 sqM); Non-African American GFR(CKD) >90 (>60 ml/min/1.73 sqM)
[2023-12-31] MEDS: LINAGLIPTIN 5 MG TABLET PO SCH (08:53)
[2023-12-31] MEDS: BACLOFEN 10 MG TAB PO SCH (08:53)
[2023-12-31] MEDS: LITHIUM CARBONATE 300 MG CAP PO SCH (08:53)
[2023-12-31 08:56] LABS: ALT 22 U/L (4-34); AST 23 U/L (14-36); African American GFR (CKD) >90 (>60 ml/min/1.73 sqM); Albumin 2.3 g/dL (3.5-5.0); Alkaline Phosphatase 76 U/L (38-126); Anion Gap 6 mmol/L; Blood Urea Nitrogen 5 mg/dL (7-17); Calcium 7.9 mg/dL (8.4-10.2); Carbon Dioxide 19 mmol/L (22-30); Chloride 114 mmol/L (98-107); Globulin 2.4 g/dL; Glucose 158 mg/dL (74-99); Non-African American GFR(CKD) >90 (>60 ml/min/1.73 sqM); Potassium 3.4 mmol/L (3.5-5.1); Sodium 139 mmol/L (137-145); Total Bilirubin 0.3 mg/dL (0.2-1.3); Total Protein 4.7 g/dL (6.3-8.2)
--- NOTE | 2023-12-31 09:05 | P.CONS ---
History of Present Illness - Reason for Consult Consult date: 12/30/23 Bacteremia Requesting physician: Guzman Jarrell - Chief Complaint Fever x few days - History of Present Illness Patient is a 43-year-old female with a past medical history significant for diabetes mellitus DVT reflux hypertension hyperlipidemia did have a mitochondrial metabolic disorder in this patient who did have a Mediport for hydration and did have a history of multiple line related sepsis patient mention started having a fever and chills about 4 days ago for the patient presented to [facility] ER with the patient did have blood cultures draw n and the patient was subsequently discharged home patient was called back to come back to the hospital as the blood cultures came back positive with MRSA patient has been complaining of generalized weakness not feeling well did have fever with rigors and chills denies any URI symptoms did have some nausea but no vomiting patient complaining of shortness of breath and also have a cough mild to moderate intensity with occasional sputum production patient denies any abdominal pain or any diarrhea has been complaining of some discomfort at the port site on presentation to the hospital patient did have fever of 99.8 F subsequently spiked a fever of 100 F patient was tachycardic heart rate of 109 but not hypotensive or need for pressor support mildly hypoxic O2 sats of 93% currently on 4 L nasal cannula oxygen patient did have a white count of 9.2 BUN/creatinine were normal liver isms are normal urine was negative influenza RSV COVID testing was negative blood culture has been repeated for the port and peripherally patient did have a chest x-ray consolidative opacity in the right upper lung zone patient was started on vancomycin and Zithromax infectious was consulted for further management of antibiotic therapy patient is in the hospital with sepsis in this patient who did have fever tachycardia Review of Systems Positive point and negatives has been mentioned in the HPI, complete review of systems was performed and all other systems are negative 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 Lymphedema left arm due to DVTs, avoid use of left arm for BP, IV, blood draws. Hx Vtach, pituitary microadenoma, patent foramen ovale, narcolepsy, gastropareis, hx orthostatic hypotension/syncope, migraines with hemiplegia, pernicious anemia, polycystic ovarian syndrome, neuropathy bilateral legs/feet/arms, uses wheelchair, able to transfer and walk few steps. CPAP use. Lupus anticoagulation syndrome. Enlarged liver. History of Any Multi-Drug Resistant Organisms: ESBL, MRSA Year Discovered:: 12/20/22 ESBL E.coli; 03/09/17 MRSA MDRO Source:: Urine-ESBL; Left Arm-MRSA Past Surgical History: Cholecystectomy, Uterine Ablation Additional Past Surgical History / Comment(s): Colonscopy/EGD, GERSON, PORT-A-CATH INSERTION X3, PICC line insertion and later removed. Past Anesthesia/Blood Transfusion Reactions: Previous Problems w/ Anesthesia, Motion Sickness Additional Past Anesthesia/Blood Transfusion Reaction / Comm: Patient states difficult to sedate. Hx blood transfusions with no issues. Past Psychological History: Anxiety, Bipolar, Depression, PTSD Additional Psychological History / Comment(s): Autism spectrum Smoking Status: Never smoker Past Alcohol Use History: Rare Additional Past Alcohol Use History / Comment(s): . Past Drug Use History: None Reported - Past Family History Brother(s) Family Medical History: Diabetes Mellitus, Hyperlipidemia, Hypertension Additional Family Medical History / Comment(s): Patient states she has 1 brother with no major medical problems. Father History Unknown: Yes Family Medical History: Diabetes Mellitus, Hyperlipidemia, Hypertension Mother Family Medical History: CVA/TIA, Diabetes Mellitus, Deep Vein Thrombosis (DVT) Additional Family Medical History / Comment(s): Antiphospholipid antibody syndrome, Lupus, dementia. Multiple DVT's and Strokes. Medications and Allergies Home Medications Medication Instructions Recorded Confirmed Type Levothyroxine Sodium [Synthroid] 100 mcg PO DAILY 01/16/19 12/29/23 History Methenamine Hippurate 1 gm PO BID 07/12/19 12/29/23 History Mirabegron [Myrbetriq] 25 mg PO DAILY 10/08/19 12/29/23 History Fenofibrate [Lofibra] 160 mg PO HS tab 10/17/19 12/29/23 Rx Rivaroxaban [Xarelto] 20 mg PO HS tab 10/17/19 12/29/23 Rx Promethazine [Phenergan] 25 mg PO TID PRN 11/30/19 12/29/23 History Levothyroxine Sodium [Synthroid] 125 mcg PO MOTUWETH 12/28/19 12/29/23 History Albuterol Inhaler [Ventolin Hfa 2 puff INHALATION RT-Q4H PRN 09/19/20 12/29/23 History Inhaler] Dexlansoprazole [Dexilant] 60 mg PO DAILY 09/19/20 12/29/23 History Galcanezumab-Gnlm [Emgality Pen] 120 mg SQ Q30D 09/19/20 12/29/23 History Cyanocobalamin (Vitamin B-12) 1,000 mcg PO DAILY 06/01/21 12/29/23 History [Vitamin B-12] Ezetimibe [Zetia] 10 mg PO HS 06/01/21 12/29/23 History busPIRone HCL [Buspar] 30 mg PO BID 06/01/21 12/29/23 History Baclofen [Lioresal] 20 mg PO QID 06/02/21 12/29/23 History Fluticasone/Vilanterol [Breo 1 puff INHALATION RT-DAILY 09/27/21 12/29/23 History Ellipta 100-25 Mcg Inhaler] Ondansetron Odt [Zofran ODT] 8 mg PO TID PRN 09/27/21 12/29/23 History polyethylene glycoL 3350 [Miralax] 17 gm PO DAILY PRN 09/27/21 12/29/23 History Fluticasone Nasal [place] [Flonase 2 spr EA NOSTRIL BID 04/26/22 12/29/23 History Nasal [place]] [place] Carbonate [[place] 300 mg PO DAILY 04/26/22 12/29/23 History Carbonate ER] traZODone HCL 200 mg PO HS 04/26/22 12/29/23 History Dicyclomine HCl 20 mg PO Q6H PRN 06/23/22 12/29/23 History Prochlorperazine [Compro] 25 mg RECTAL Q8H PRN 06/23/22 12/29/23 History Rimegepant Sulfate [Nurtec Odt] 75 mg PO DAILY PRN 06/23/22 12/29/23 History cloNIDine HCL [Kapvay] 0.2 mg PO DAILY 06/23/22 12/29/23 History Pioglitazone [Actos] 45 mg PO DAILY 10/07/22 12/29/23 History Semaglutide [Ozempic] 2 mg SQ TU 10/07/22 12/29/23 History cloNIDine HCL [Kapvay] 0.1 mg PO HS 10/07/22 12/29/23 History sitaGLIPtin [Januvia] 100 mg PO DAILY 10/07/22 12/29/23 History Famotidine 40 mg PO HS 11/07/22 12/29/23 History Metoprolol Succinate (ER) [Toprol 100 mg PO DAILY 11/07/22 12/29/23 History XL] Phenazopyridine HCl [Uristat Ultra] 99.5 mg PO DAILY PRN 11/07/22 12/29/23 History cloNIDine HCL [Catapres] 0.1 mg PO HS 12/15/22 12/29/23 History diazePAM [Valium] 5 mg PO DAILY PRN 02/18/23 12/29/23 History modafiniL [Provigil] 400 mg PO DAILY 03/15/23 12/29/23 History Butalbital/Aspirin/Caffeine 1 tab PO TID PRN 04/12/23 12/29/23 History [Ssyxxb-Azpsbwu-Ridpnkbs 50-325-40 mg] Diclofenac Sodium Gel [Voltaren 1% 4 gm TOPICAL QID PRN 04/12/23 12/29/23 History Gel] Latanoprost [Latanoprost 0.005%] 1 drop BOTH EYES HS 04/12/23 12/29/23 History Triamcinolone 0.5% Cream [Kenalog 1 applic TOPICAL BID PRN 04/12/23 12/29/23 History 0.5% Cream] Brexpiprazole [Rexulti] 2 mg PO BID 06/13/23 12/29/23 History Lactulose 10 - 20 gm PO BID PRN 06/13/23 12/29/23 History Sucralfate [Carafate] 1 gm PO TID-W/MEALS PRN 06/13/23 12/29/23 History Ammonium Lactate Lotion 1 applic TOPICAL DAILY 10/17/23 12/29/23 History [Lac-Hydrin 12% Lotion] Dexmethylphenidate HCl [Focalin Xr] 10 mg PO DAILY 10/17/23 12/29/23 History Gabapentin 600 mg PO TID 10/17/23 12/29/23 History Glycopyrrolate [Robinul Forte] 2 mg PO TID 10/17/23 12/29/23 History Ketoconazole 2% Shampoo [Nizoral] 1 applic TOPICAL SUWE 10/17/23 12/29/23 History Linaclotide [Linzess] 72 mcg PO DAILY 10/17/23 12/29/23 History Loratadine [Claritin] 10 mg PO DAILY 10/17/23 12/29/23 History Mag Hydrox/Al Hydrox/Simeth 30 ml PO QID PRN 10/17/23 12/29/23 History [Maalox] Metoclopramide [Reglan] 10 mg PO ACHS PRN 10/17/23 12/29/23 History Wyo-Iyzk-Ocykw Acid 1 cap PO W/BRKFST 10/17/23 12/29/23 History [-U Capsule (formulary)] Rizatriptan Benzoate [Rizatriptan] 5 mg PO BID PRN 10/17/23 12/29/23 History Silver Sulfadiazine [Silver 1 applic TOPICAL BID PRN 10/17/23 12/29/23 History Sulfadiazine 1%] fluvoxaMINE MALEATE [Luvox] 50 mg PO HS 10/17/23 12/29/23 History predniSONE 5 mg PO W/BRKFST 10/17/23 12/29/23 History [place] Carbonate [[place] 600 mg PO HS 12/29/23 12/29/23 History Carbonate ER] oxyCODONE HCL [OxyIR] 5 mg PO Q6H 12/29/23 12/29/23 History Vancomycin 1,500 mg IVPB Q8H each 01/06/24 Rx Allergies Allergy/AdvReac Type Severity Reaction Status Date / Time peanut oil Allergy Severe Nausea & Verified 12/29/23 21:58 Vomiting,itching barium sulfate Allergy Anaphylaxis Verified 12/29/23 21:58 doxepin [Doxepin] Allergy Anaphylaxis Verified 12/29/23 21:58 ephedrine Allergy Chest Verified 12/29/23 21:58 Pain/tachycardia ertapenem [From Invanz] Allergy Rash/Hives- Verified 12/29/23 21:58 like a chemical burn peanut Allergy Anaphylaxis Verified 12/29/23 21:58 pseudoephedrine Allergy Chest Pain Verified 12/29/23 21:58 Sulfa (Sulfonamide Allergy Nausea & Verified 12/29/23 21:58 Antibiotics) Vomiting, DEHYDRATION sumatriptan [From Imitrex] Allergy affects Verified 12/29/23 21:58 vision-unable to see for hrs. doxycycline AdvReac Nausea & Verified 12/29/23 21:58 Vomiting & Diarrhea pseudoephedrine HCl AdvReac chest Verified 12/29/23 21:58 [From Sudafed] pain/tachycardia sulfamethoxazole AdvReac Nausea & Verified 12/29/23 21:58 [From Bactrim] Vomiting Adhesive Tape AdvReac Rash/Hives Uncoded 12/29/23 15:40 Physical Exam Vitals: Vital Signs Temp Pulse Pulse Resp BP BP Pulse Ox 12/30/23 08:41 94 L 12/30/23 08:17 18 12/30/23 07:30 99.8 F H 110 H 18 135/82 95 12/30/23 01:58 100.0 F H 114 H 19 153/83 90 L 12/30/23 00:00 107 H 20 133/70 95 12/29/23 21:00 95 20 110/65 92 L 12/29/23 20:00 98.7 F 95 20 104/80 93 L 12/29/23 18:46 99.4 F 100 20 110/67 93 L 12/29/23 17:43 96 20 122/70 93 L 12/29/23 16:30 20 12/29/23 15:36 99.8 F H 109 H 20 131/74 96 Intake and Output 12/29/23 12/30/23 12/30/23 22:59 06:59 14:59 Other: Voiding Method Bedside Commode Bedside Commode # Voids 1 Weight 110.223 kg 110.223 kg GENERAL DESCRIPTION: Middle-aged female lying in bed, no distress. No tachypnea or accessory muscle of respiration use. HEENT: Shows Pallor , no scleral icterus. Oral mucous membrane is dry. No pharyngeal erythema or thrush NECK: Trachea central, no thyromegaly. LUNGS: Unlabored breathing. Decreased breath sound at the base HEART: S1, S2, regular rate and rhythm. No loud murmur ABDOMEN: Soft, no tenderness , guarding or rigidity, no organomegaly EXTREMITIES: No edema of feet. SKIN: No rash, no masses palpable. NEUROLOGICAL: The patient is awake, alert, oriented x3, mood and affect normal. Results CBC & Chem 7: 01/05/24 12:00 01/05/24 12:00 Labs: Abnormal Lab Results - Last 24 Hours (Table) 12/29/23 12/29/23 12/29/23 Range/Units 16:40 16:40 16:40 RBC 3.27 L (3.80-5.40) m/uL Hgb 9.7 L D (11.4-16.0) gm/dL Hct 29.2 L (34.0-46.0) % Lymphocytes # 0.9 L (1.0-4.8) k/uL APTT 35.7 H (22.0-30.0) sec Sodium 133 L (137-145) mmol/L Carbon Dioxide 18 L (22-30) mmol/L Creatinine 0.49 L (0.52-1.04) mg/dL Glucose 237 H (74-99) mg/dL POC Glucose (mg/dL) (70-110) mg/dL C-Reactive Protein 37.1 H (<1.0) mg/dL Total Protein 5.5 L (6.3-8.2) g/dL Albumin 3.0 L (3.5-5.0) g/dL Urine Protein (Negative) Urine Glucose (UA) (Negative) 12/29/23 12/30/23 12/30/23 Range/Units 17:01 05:52 10:54 RBC (3.80-5.40) m/uL Hgb (11.4-16.0) gm/dL Hct (34.0-46.0) % Lymphocytes # (1.0-4.8) k/uL APTT (22.0-30.0) sec Sodium (137-145) mmol/L Carbon Dioxide (22-30) mmol/L Creatinine (0.52-1.04) mg/dL Glucose (74-99) mg/dL POC Glucose (mg/dL) 205 H 185 H (70-110) mg/dL C-Reactive Protein (<1.0) mg/dL Total Protein (6.3-8.2) g/dL Albumin (3.5-5.0) g/dL Urine Protein Trace H (Negative) Urine Glucose (UA) 1+ H (Negative) Microbiology - Last 24 Hours (Table) 12/29/23 17:00 Blood Culture Gram Stain - Preliminary Blood 12/29/23 17:10 Blood Culture Gram Stain - Preliminary Blood Assessment and Plan (1) Allergy to multiple antibiotics Current Visit: Yes Status: Acute Code(s): Z88.1 - ALLERGY STATUS TO OTHER ANTIBIOTIC AGENTS SNOMED Code(s): 727250549 (2) Infection due to Port-A-Cath Current Visit: Yes Status: Acute Code(s): T80.219A - UNSP INFECTION DUE TO CENTRAL VENOUS CATHETER, INIT ENCNTR SNOMED Code(s): 653828053 (3) MRSA bacteremia Current Visit: Yes Status: Acute Code(s): R78.81 - BACTEREMIA; B95.62 - METHICILLIN RESIS STAPH INFCT CAUSING DISEASES CLASSD [id number] SNOMED Code(s): 82131067585904042 (4) Sepsis Current Visit: No Status: Acute Code(s): A41.9 - SEPSIS, UNSPECIFIED ORGANISM SNOMED Code(s): 05249479 Plan: 1patient presented to hospital with sepsis in this patient who did have a fever tachycardia source is likely Mediport infection hide this patient with evidence of MRSA bacteremia patient also have respiratory symptoms and chest x-ray showing evidence of pneumonia could be related to the MRSA 2-we will try to obtain sputum for culture and culture check a CRP and a procalcitonin level 3-vascular surgery consult for removal of the infected port 4-blood cultures will be repeated to document clearance of bacteremia 5-vancomycin pharmacy to dose target trough of 15 while watching kidney function and Vanco trough closely We will follow on clinical condition and cultures to further adjust medication if needed Thank you for this consultation we will follow the patient along with you Dictation was produced using [employer] dictation software. please excuse any grammatical, word or spelling errors. Time with Patient: Greater than 30
[2023-12-31 09:13] LABS: Glucose,Whole Blood 222 mg/dL (70-110)
[2023-12-31] MEDS: LACTATED RINGERS 1,000 ML IV ONE (09:21)
[2023-12-31] MEDS: ONDANSETRON 4 MG/2 ML VIAL IVP ONE (09:21)
[2023-12-31] MEDS: DEXAMETHASONE SOD PHOSPHATE 4 MG/ML 1 ML VIAL IVP ONE (09:22)
[2023-12-31] MEDS: LIDOCAINE 1% INJ 10MG/ML (20 ML MDV) SQ ONE ×2 (09:25)
--- NOTE | 2023-12-31 10:12 | P.GSCN ---
History of Present Illness Consult date: 12/31/23 Reason for Consult: Suspected infected Uqiatn-i-Guxj as evidenced by positive blood cultures and no other identifiable source. History of present illness: Patient is a 43-year-old female who has a Ihjrat-l-Ulpp in the anterior chest wall on the left. She requires daily infusion of IV fluids as well as antiemetics. Recently she was admitted to the hospital where blood cultures are positive. With no other identifiable source it is thought the source of the infectious issue is her port. Blood is growing MRSA. 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 Lymphedema left arm due to DVTs, avoid use of left arm for BP, IV, blood draws. Hx Vtach, pituitary microadenoma, patent foramen ovale, narcolepsy, gastropareis, hx orthostatic hypotension/syncope, migraines with hemiplegia, pernicious anemia, polycystic ovarian syndrome, neuropathy bilateral legs/feet/arms, uses wheelchair, able to transfer and walk few steps. CPAP use. Lupus anticoagulation syndrome. Enlarged liver. History of Any Multi-Drug Resistant Organisms: ESBL, MRSA Year Discovered:: 12/20/22 ESBL E.coli; 03/09/17 MRSA MDRO Source:: Urine-ESBL; Left Arm-MRSA Past Surgical History: Cholecystectomy, Uterine Ablation Additional Past Surgical History / Comment(s): Colonscopy/EGD, GERSON, PORT-A-CATH INSERTION X3, PICC line insertion and later removed. Past Anesthesia/Blood Transfusion Reactions: Previous Problems w/ Anesthesia, Motion Sickness Additional Past Anesthesia/Blood Transfusion Reaction / Comm: Patient states difficult to sedate. Hx blood transfusions with no issues. Past Psychological History: Anxiety, Bipolar, Depression, PTSD Additional Psychological History / Comment(s): Autism spectrum Smoking Status: Never smoker Past Alcohol Use History: Rare Additional Past Alcohol Use History / Comment(s): . Past Drug Use History: None Reported - Past Family History Brother(s) Family Medical History: Diabetes Mellitus, Hyperlipidemia, Hypertension Additional Family Medical History / Comment(s): Patient states she has 1 brother with no major medical problems. Father History Unknown: Yes Family Medical History: Diabetes Mellitus, Hyperlipidemia, Hypertension Mother Family Medical History: CVA/TIA, Diabetes Mellitus, Deep Vein Thrombosis (DVT) Additional Family Medical History / Comment(s): Antiphospholipid antibody syndrome, Lupus, dementia. Multiple DVT's and Strokes. Medications and Allergies Home Medications Medication Instructions Recorded Confirmed Type Levothyroxine Sodium [Synthroid] 100 mcg PO DAILY 01/16/19 12/29/23 History Methenamine Hippurate 1 gm PO BID 07/12/19 12/29/23 History Mirabegron [Myrbetriq] 25 mg PO DAILY 10/08/19 12/29/23 History Fenofibrate [Lofibra] 160 mg PO HS tab 10/17/19 12/29/23 Rx Rivaroxaban [Xarelto] 20 mg PO HS tab 10/17/19 12/29/23 Rx Promethazine [Phenergan] 25 mg PO TID PRN 11/30/19 12/29/23 History Levothyroxine Sodium [Synthroid] 125 mcg PO MOTUWETH 12/28/19 12/29/23 History Albuterol Inhaler [Ventolin Hfa 2 puff INHALATION RT-Q4H PRN 09/19/20 12/29/23 History Inhaler] Dexlansoprazole [Dexilant] 60 mg PO DAILY 09/19/20 12/29/23 History Galcanezumab-Gnlm [Emgality Pen] 120 mg SQ Q30D 09/19/20 12/29/23 History Cyanocobalamin (Vitamin B-12) 1,000 mcg PO DAILY 06/01/21 12/29/23 History [Vitamin B-12] Ezetimibe [Zetia] 10 mg PO HS 06/01/21 12/29/23 History busPIRone HCL [Buspar] 30 mg PO BID 06/01/21 12/29/23 History Baclofen [Lioresal] 20 mg PO QID 06/02/21 12/29/23 History Fluticasone/Vilanterol [Breo 1 puff INHALATION RT-DAILY 09/27/21 12/29/23 History Ellipta 100-25 Mcg Inhaler] Ondansetron Odt [Zofran ODT] 8 mg PO TID PRN 09/27/21 12/29/23 History polyethylene glycoL 3350 [Miralax] 17 gm PO DAILY PRN 09/27/21 12/29/23 History Fluticasone Nasal [place] [Flonase 2 spr EA NOSTRIL BID 04/26/22 12/29/23 History Nasal [place]] [place] Carbonate [[place] 300 mg PO DAILY 04/26/22 12/29/23 History Carbonate ER] traZODone HCL 200 mg PO HS 04/26/22 12/29/23 History Dicyclomine HCl 20 mg PO Q6H PRN 06/23/22 12/29/23 History Prochlorperazine [Compro] 25 mg RECTAL Q8H PRN 06/23/22 12/29/23 History Rimegepant Sulfate [Nurtec Odt] 75 mg PO DAILY PRN 06/23/22 12/29/23 History cloNIDine HCL [Kapvay] 0.2 mg PO DAILY 06/23/22 12/29/23 History Pioglitazone [Actos] 45 mg PO DAILY 10/07/22 12/29/23 History Semaglutide [Ozempic] 2 mg SQ TU 10/07/22 12/29/23 History cloNIDine HCL [Kapvay] 0.1 mg PO HS 10/07/22 12/29/23 History glipiZIDE 10 mg PO AC-BRKFST PRN 10/07/22 12/29/23 History sitaGLIPtin [Januvia] 100 mg PO DAILY 10/07/22 12/29/23 History Famotidine 40 mg PO HS 11/07/22 12/29/23 History Metoprolol Succinate (ER) [Toprol 100 mg PO DAILY 11/07/22 12/29/23 History XL] Phenazopyridine HCl [Uristat Ultra] 99.5 mg PO DAILY PRN 11/07/22 12/29/23 History cloNIDine HCL [Catapres] 0.1 mg PO HS 12/15/22 12/29/23 History diazePAM [Valium] 5 mg PO DAILY PRN 02/18/23 12/29/23 History Meloxicam [Mobic] 15 mg PO DAILY 03/15/23 12/29/23 History modafiniL [Provigil] 400 mg PO DAILY 03/15/23 12/29/23 History Butalbital/Aspirin/Caffeine 1 tab PO TID PRN 04/12/23 12/29/23 History [Nfvmqw-Zeycpvy-Ixokacxj 50-325-40 mg] Diclofenac Sodium Gel [Voltaren 1% 4 gm TOPICAL QID PRN 04/12/23 12/29/23 History Gel] Latanoprost [Latanoprost 0.005%] 1 drop BOTH EYES HS 04/12/23 12/29/23 History Sodium Chloride 0.9% Solution 2,000 ml IV DAILY 04/12/23 12/29/23 History Triamcinolone 0.5% Cream [Kenalog 1 applic TOPICAL BID PRN 04/12/23 12/29/23 History 0.5% Cream] Trimethoprim [Trimpex] 100 mg PO DAILY 04/12/23 12/29/23 History Brexpiprazole [Rexulti] 2 mg PO BID 06/13/23 12/29/23 History Lactulose 10 - 20 gm PO BID PRN 06/13/23 12/29/23 History Sucralfate [Carafate] 1 gm PO TID-W/MEALS PRN 06/13/23 12/29/23 History Ammonium Lactate Lotion 1 applic TOPICAL DAILY 10/17/23 12/29/23 History [Lac-Hydrin 12% Lotion] Dexmethylphenidate HCl [Focalin Xr] 10 mg PO DAILY 10/17/23 12/29/23 History Gabapentin 600 mg PO TID 10/17/23 12/29/23 History Glycopyrrolate [Robinul Forte] 2 mg PO TID 10/17/23 12/29/23 History Ketoconazole 2% Shampoo [Nizoral] 1 applic TOPICAL SUWE 10/17/23 12/29/23 History Linaclotide [Linzess] 72 mcg PO DAILY 10/17/23 12/29/23 History Loratadine [Claritin] 10 mg PO DAILY 10/17/23 12/29/23 History Mag Hydrox/Al Hydrox/Simeth 30 ml PO QID PRN 10/17/23 12/29/23 History [Maalox] Metoclopramide [Reglan] 10 mg PO ACHS PRN 10/17/23 12/29/23 History Rpu-Joua-Pijhh Acid 1 cap PO W/BRKFST 10/17/23 12/29/23 History [-U Capsule (formulary)] Rizatriptan Benzoate [Rizatriptan] 5 mg PO BID PRN 10/17/23 12/29/23 History Silver Sulfadiazine [Silver 1 applic TOPICAL BID PRN 10/17/23 12/29/23 History Sulfadiazine 1%] fluvoxaMINE MALEATE [Luvox] 50 mg PO HS 10/17/23 12/29/23 History predniSONE 5 mg PO W/BRKFST 10/17/23 12/29/23 History Cefdinir [Omnicef] 300 mg PO Q12HR 12/29/23 12/29/23 History [place] Carbonate [[place] 600 mg PO HS 12/29/23 12/29/23 History Carbonate ER] methylPREDNISolone Dose Pack See Taper PO DIRECTED 12/29/23 12/29/23 History [Medrol Dose Pack] oxyCODONE HCL [OxyIR] 5 mg PO Q6H 12/29/23 12/29/23 History Allergies Allergy/AdvReac Type Severity Reaction Status Date / Time peanut oil Allergy Severe Nausea & Verified 12/29/23 21:58 Vomiting,itching barium sulfate Allergy Anaphylaxis Verified 12/29/23 21:58 doxepin [Doxepin] Allergy Anaphylaxis Verified 12/29/23 21:58 ephedrine Allergy Chest Verified 12/29/23 21:58 Pain/tachycardia ertapenem [From Invanz] Allergy Rash/Hives- Verified 12/29/23 21:58 like a chemical burn peanut Allergy Anaphylaxis Verified 12/29/23 21:58 pseudoephedrine Allergy Chest Pain Verified 12/29/23 21:58 Sulfa (Sulfonamide Allergy Nausea & Verified 12/29/23 21:58 Antibiotics) Vomiting, DEHYDRATION sumatriptan [From Imitrex] Allergy affects Verified 12/29/23 21:58 vision-unable to see for hrs. doxycycline AdvReac Nausea & Verified 12/29/23 21:58 Vomiting & Diarrhea pseudoephedrine HCl AdvReac chest Verified 12/29/23 21:58 [From Sudafed] pain/tachycardia sulfamethoxazole AdvReac Nausea & Verified 12/29/23 21:58 [From Bactrim] Vomiting Adhesive Tape AdvReac Rash/Hives Uncoded 12/29/23 15:40 Surgical - Exam Osteopathic Statement: *. No significant issues noted on an osteopathic structural exam other than those noted in the History and Physical/Consult. Vital Signs Temp Pulse Resp BP Pulse Ox 99.8 F H 109 H 20 131/74 96 12/29/23 15:36 12/29/23 15:36 12/29/23 15:36 12/29/23 15:36 12/29/23 15:36 No significant tenderness is noted at the port site. There is no evidence of erythema. Results - Labs 12/31/23 07:52 12/31/23 07:52 Abnormal Lab Results - Last 24 Hours (Table) 12/30/23 12/30/23 12/30/23 Range/Units 10:54 17:10 20:13 RBC (3.80-5.40) m/uL Hgb (11.4-16.0) gm/dL Hct (34.0-46.0) % Potassium (3.5-5.1) mmol/L Chloride (98-107) mmol/L Carbon Dioxide (22-30) mmol/L BUN (7-17) mg/dL Creatinine (0.52-1.04) mg/dL Glucose (74-99) mg/dL POC Glucose (mg/dL) 185 H 238 H 308 H (70-110) mg/dL Calcium (8.4-10.2) mg/dL Total Protein (6.3-8.2) g/dL Albumin (3.5-5.0) g/dL 12/31/23 12/31/23 12/31/23 Range/Units 06:09 07:52 07:52 RBC 2.84 L (3.80-5.40) m/uL Hgb 8.4 L (11.4-16.0) gm/dL Hct 26.5 L (34.0-46.0) % Potassium (3.5-5.1) mmol/L Chloride (98-107) mmol/L Carbon Dioxide (22-30) mmol/L BUN (7-17) mg/dL Creatinine 0.42 L (0.52-1.04) mg/dL Glucose (74-99) mg/dL POC Glucose (mg/dL) 146 H (70-110) mg/dL Calcium (8.4-10.2) mg/dL Total Protein (6.3-8.2) g/dL Albumin (3.5-5.0) g/dL 12/31/23 12/31/23 Range/Units 07:52 09:11 RBC (3.80-5.40) m/uL Hgb (11.4-16.0) gm/dL Hct (34.0-46.0) % Potassium 3.4 L (3.5-5.1) mmol/L Chloride 114 H (98-107) mmol/L Carbon Dioxide 19 L (22-30) mmol/L BUN 5 L (7-17) mg/dL Creatinine 0.44 L (0.52-1.04) mg/dL Glucose 158 H (74-99) mg/dL POC Glucose (mg/dL) 222 H (70-110) mg/dL Calcium 7.9 L (8.4-10.2) mg/dL Total Protein 4.7 L (6.3-8.2) g/dL Albumin 2.3 L (3.5-5.0) g/dL Microbiology - Last 24 Hours (Table) 12/29/23 17:10 Blood Culture Gram Stain - Preliminary Blood Blood Culture - Preliminary Presumptive MRSA 12/29/23 17:00 Blood Culture Gram Stain - Preliminary Blood Blood Culture - Preliminary Presumptive MRSA Diabetes panel 12/31/23 12/31/23 Range/Units 07:52 07:52 Sodium 139 (137-145) mmol/L Potassium 3.4 L (3.5-5.1) mmol/L Chloride 114 H (98-107) mmol/L Carbon Dioxide 19 L (22-30) mmol/L BUN 5 L (7-17) mg/dL Creatinine 0.42 L 0.44 L (0.52-1.04) mg/dL Glucose 158 H (74-99) mg/dL Calcium 7.9 L (8.4-10.2) mg/dL AST 23 (14-36) U/L ALT 22 (4-34) U/L Alkaline Phosphatase 76 (38-126) U/L Total Protein 4.7 L (6.3-8.2) g/dL Albumin 2.3 L (3.5-5.0) g/dL Calcium panel 12/31/23 Range/Units 07:52 Calcium 7.9 L (8.4-10.2) mg/dL Albumin 2.3 L (3.5-5.0) g/dL Pituitary panel 12/31/23 12/31/23 Range/Units 07:52 07:52 Sodium 139 (137-145) mmol/L Potassium 3.4 L (3.5-5.1) mmol/L Chloride 114 H (98-107) mmol/L Carbon Dioxide 19 L (22-30) mmol/L BUN 5 L (7-17) mg/dL Creatinine 0.42 L 0.44 L (0.52-1.04) mg/dL Glucose 158 H (74-99) mg/dL Calcium 7.9 L (8.4-10.2) mg/dL Adrenal panel 12/31/23 12/31/23 Range/Units 07:52 07:52 Sodium 139 (137-145) mmol/L Potassium 3.4 L (3.5-5.1) mmol/L Chloride 114 H (98-107) mmol/L Carbon Dioxide 19 L (22-30) mmol/L BUN 5 L (7-17) mg/dL Creatinine 0.42 L 0.44 L (0.52-1.04) mg/dL Glucose 158 H (74-99) mg/dL Calcium 7.9 L (8.4-10.2) mg/dL Total Bilirubin 0.3 (0.2-1.3) mg/dL AST 23 (14-36) U/L ALT 22 (4-34) U/L Alkaline Phosphatase 76 (38-126) U/L Total Protein 4.7 L (6.3-8.2) g/dL Albumin 2.3 L (3.5-5.0) g/dL - Imaging Chest x-ray: image reviewed Assessment and Plan Assessment: MRSA positive blood cultures with suspicion of infected Sxuetq-t-Tftw as source of bacteremia. Plan: Removal of Hoxvwj-x-Gann. The procedure, risk and benefits were discussed with the patient. Patient wished to proceed. Time with Patient: Less than 30
--- NOTE | 2023-12-31 10:15 | P.OP ---
Date of Procedure: 12/31/23 Preoperative Diagnosis: Suspected infected Uqfsju-m-Chhw with MRSA positive blood cultures. Postoperative Diagnosis: Infected Ycowoj-s-Hwoa. Procedure(s) Performed: Explantation of infected Mmeugm-l-Xslm. Anesthesia: MAC, local (With 1% Xylocaine for local anesthesia.) Surgeon: Marin Mckeon Estimated Blood Loss (ml): 2 Urine output (ml): 0 Pathology: other (Microbiology/wound culture) Condition: stable Disposition: no change Indications for Procedure: Patient is a 43-year-old female who has a Mcrsjg-y-Zsfe which is utilized essentially on a daily basis. Recently she was found to have MRSA positive blood cultures. It is suspected the port is the source of this infectious process and patient is offered explantation. Description of Procedure: Patient brought the op room placed in the supine position administered attended anesthesia delivered by the department of anesthesiology. Patient's left anterior chest wall was sterilely prepped and draped in usual manner. 1% Xylocaine was utilized for local anesthesia at the previous surgical scar. Through this anesthetized area and through the scar skin incision was made carried down through the subcutaneous tissues. The port was identified. It appeared to be well incorporated however with manipulation purulent drainage was identified. This was cultured. The port was then removed in total. Hemostasis was adequate. The wound was packed with iodoform gauze. The wound was loosely closed with 4-0 nylon suture to allow for easy removal of the iodoform gauze. Appropriate dressing was applied Patient tolerated the procedure well was taken to the recovery area in satisfactory and stable condition.
[2023-12-31 10:32] LABS: Glucose,Whole Blood 232 mg/dL (70-110)
[2023-12-31] MEDS: INSULIN ASPART (NovoLOG) 100 UNIT/ML VIAL SQ ONE (10:39)
[2023-12-31] MEDS: Methenamine Hippurate [Methenamine Hippurate] 1 GM Tablet PO SCH (10:40)
[2023-12-31] MEDS: Mirabegron [Myrbetriq] 25 MG Tab.Er.24h PO SCH (10:40)
[2023-12-31] MEDS: VANCOMYCIN TROUGH DUE 1 EACH MISC MISCELLANE ONE (10:53)
[2023-12-31] MEDS: PANTOPRAZOLE 40 MG TABLET PO SCH (10:58)
[2023-12-31 11:20] LABS: Glucose,Whole Blood 240 mg/dL (70-110)
--- NOTE | 2023-12-31 14:06 | P.CNPUL ---
History of Present Illness Consult date: 12/31/23 Reason for consult: pneumonia History of present illness: I was asked to evaluate this patient for pneumonia. The patient was hospitalized for staph sepsis, likely MRSA and the patient has positive blood cultures. The patient is morbidly obese with a BMI of 40. She is known to have multiple medical problems and the patient has required a Mediport insertion for hydration as the patient is known to have underlying mitochondrial disorder, hy pertension, hyperlipidemia, lupus, Emily's thyroiditis, obstructive sleep apnea, DVT on anticoagulation, chronic anxiety bipolar disorder with history of depression. She had a Mediport that was infected. She was in the emergency department where blood cultures were taken and the patient turned out to have positive Staph aureus and she came back to the hospital for further care. She is currently hospitalized. Denies having any chest pain or hemoptysis. She has some exertional dyspnea. Had a viral panel came back negative. As far as his blood work, the patient has a White cell count of 8 with a hemoglobin 8.4 and a platelet count of 307, sodium is at 139, potassium of 3.4, BUN is afebrile creatinine 0.44 and serum bicarb is at 19. LFTs are normal. The patient had blood cultures obtained on 12/29/2023 a total of 4 sets came back positive for MRSA and another blood culture on 12/25/2023 was also positive for Staph aureus/MRSA. The patient was started on IV antibiotics and the patient is currently on IV vancomycin with pharmacy to dose. Home medications have been resumed. She is currently on oxygen at 4 L with a pulse ox of 92%. Chest x-ray was also abnormal and showed bilateral pulmonary filtrates and consolidation in the right upper lobe zone and right perihilar area and in the left upper zone consistent with multifocal pneumonia. Based on that, the patient was given a CT scan of the chest that showed evidence of bilateral nodular opacities which may reflect septic emboli and the patient also has areas of diffuse airspace disease and consolidation and new pulm vessel congestion pleural effusion consistent with CHF. 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 Lymphedema left arm due to DVTs, avoid use of left arm for BP, IV, blood draws. Hx Vtach, pituitary microadenoma, patent foramen ovale, narcolepsy, gastropareis, hx orthostatic hypotension/syncope, migraines with hemiplegia, pernicious anemia, polycystic ovarian syndrome, neuropathy bilateral legs/feet/arms, uses wheelchair, able to transfer and walk few steps. CPAP use. Lupus anticoagulation syndrome. Enlarged liver. History of Any Multi-Drug Resistant Organisms: ESBL, MRSA Date of last positivie culture/infection: 12/20/22 ESBL E.coli; 03/09/17 MRSA MDRO Source:: Urine-ESBL; Left Arm-MRSA Past Surgical History: Cholecystectomy, Uterine Ablation Additional Past Surgical History / Comment(s): Colonscopy/EGD, GERSON, PORT-A-CATH INSERTION X3, PICC line insertion and later removed. Past Anesthesia/Blood Transfusion Reactions: Previous Problems w/ Anesthesia, Mo tion Sickness Additional Past Anesthesia/Blood Transfusion Reaction / Comment(s): Patient states difficult to sedate. Hx blood transfusions with no issues. Past Psychological History: Anxiety, Bipolar, Depression, PTSD Additional Psychological History / Comment(s): Autism spectrum Smoking Status: Never smoker Past Alcohol Use History: Rare Additional Past Alcohol Use History / Comment(s): . Past Drug Use History: None Reported - Past Family History Brother(s) Family Medical History: Diabetes Mellitus, Hyperlipidemia, Hypertension Additional Family Medical History / Comment(s): Patient states she has 1 brother with no major medical problems. Father History Unknown: Yes Family Medical History: Diabetes Mellitus, Hyperlipidemia, Hypertension Mother Family Medical History: CVA/TIA, Diabetes Mellitus, Deep Vein Thrombosis (DVT) Additional Family Medical History / Comment(s): Antiphospholipid antibody syndrome, Lupus, dementia. Multiple DVT's and Strokes. Medications and Allergies Home Medications Medication Instructions Recorded Confirmed Type Levothyroxine Sodium [Synthroid] 100 mcg PO DAILY 01/16/19 12/29/23 History Methenamine Hippurate 1 gm PO BID 07/12/19 12/29/23 History Mirabegron [Myrbetriq] 25 mg PO DAILY 10/08/19 12/29/23 History Fenofibrate [Lofibra] 160 mg PO HS tab 10/17/19 12/29/23 Rx Rivaroxaban [Xarelto] 20 mg PO HS tab 10/17/19 12/29/23 Rx Promethazine [Phenergan] 25 mg PO TID PRN 11/30/19 12/29/23 History Levothyroxine Sodium [Synthroid] 125 mcg PO MOTUWETH 12/28/19 12/29/23 History Albuterol Inhaler [Ventolin Hfa 2 puff INHALATION RT-Q4H PRN 09/19/20 12/29/23 History Inhaler] Dexlansoprazole [Dexilant] 60 mg PO DAILY 09/19/20 12/29/23 History Galcanezumab-Gnlm [Emgality Pen] 120 mg SQ Q30D 09/19/20 12/29/23 History Cyanocobalamin (Vitamin B-12) 1,000 mcg PO DAILY 06/01/21 12/29/23 History [Vitamin B-12] Ezetimibe [Zetia] 10 mg PO HS 06/01/21 12/29/23 History busPIRone HCL [Buspar] 30 mg PO BID 06/01/21 12/29/23 History Baclofen [Lioresal] 20 mg PO QID 06/02/21 12/29/23 History Fluticasone/Vilanterol [Breo 1 puff INHALATION RT-DAILY 09/27/21 12/29/23 History Ellipta 100-25 Mcg Inhaler] Ondansetron Odt [Zofran ODT] 8 mg PO TID PRN 09/27/21 12/29/23 History polyethylene glycoL 3350 [Miralax] 17 gm PO DAILY PRN 09/27/21 12/29/23 History Fluticasone Nasal [place] [Flonase 2 spr EA NOSTRIL BID 04/26/22 12/29/23 History Nasal [place]] [place] Carbonate [[place] 300 mg PO DAILY 04/26/22 12/29/23 History Carbonate ER] traZODone HCL 200 mg PO HS 04/26/22 12/29/23 History Dicyclomine HCl 20 mg PO Q6H PRN 06/23/22 12/29/23 History Prochlorperazine [Compro] 25 mg RECTAL Q8H PRN 06/23/22 12/29/23 History Rimegepant Sulfate [Nurtec Odt] 75 mg PO DAILY PRN 06/23/22 12/29/23 History cloNIDine HCL [Kapvay] 0.2 mg PO DAILY 06/23/22 12/29/23 History Pioglitazone [Actos] 45 mg PO DAILY 10/07/22 12/29/23 History Semaglutide [Ozempic] 2 mg SQ TU 10/07/22 12/29/23 History cloNIDine HCL [Kapvay] 0.1 mg PO HS 10/07/22 12/29/23 History glipiZIDE 10 mg PO AC-BRKFST PRN 10/07/22 12/29/23 History sitaGLIPtin [Januvia] 100 mg PO DAILY 10/07/22 12/29/23 History Famotidine 40 mg PO HS 11/07/22 12/29/23 History Metoprolol Succinate (ER) [Toprol 100 mg PO DAILY 11/07/22 12/29/23 History XL] Phenazopyridine HCl [Uristat Ultra] 99.5 mg PO DAILY PRN 11/07/22 12/29/23 History cloNIDine HCL [Catapres] 0.1 mg PO HS 12/15/22 12/29/23 History diazePAM [Valium] 5 mg PO DAILY PRN 02/18/23 12/29/23 History Meloxicam [Mobic] 15 mg PO DAILY 03/15/23 12/29/23 History modafiniL [Provigil] 400 mg PO DAILY 03/15/23 12/29/23 History Butalbital/Aspirin/Caffeine 1 tab PO TID PRN 04/12/23 12/29/23 History [Dtulow-Viyjcgb-Dmjaiogw 50-325-40 mg] Diclofenac Sodium Gel [Voltaren 1% 4 gm TOPICAL QID PRN 04/12/23 12/29/23 History Gel] Latanoprost [Latanoprost 0.005%] 1 drop BOTH EYES HS 04/12/23 12/29/23 History Sodium Chloride 0.9% Solution 2,000 ml IV DAILY 04/12/23 12/29/23 History Triamcinolone 0.5% Cream [Kenalog 1 applic TOPICAL BID PRN 04/12/23 12/29/23 History 0.5% Cream] Trimethoprim [Trimpex] 100 mg PO DAILY 04/12/23 12/29/23 History Brexpiprazole [Rexulti] 2 mg PO BID 06/13/23 12/29/23 History Lactulose 10 - 20 gm PO BID PRN 06/13/23 12/29/23 History Sucralfate [Carafate] 1 gm PO TID-W/MEALS PRN 06/13/23 12/29/23 History Ammonium Lactate Lotion 1 applic TOPICAL DAILY 10/17/23 12/29/23 History [Lac-Hydrin 12% Lotion] Dexmethylphenidate HCl [Focalin Xr] 10 mg PO DAILY 10/17/23 12/29/23 History Gabapentin 600 mg PO TID 10/17/23 12/29/23 History Glycopyrrolate [Robinul Forte] 2 mg PO TID 10/17/23 12/29/23 History Ketoconazole 2% Shampoo [Nizoral] 1 applic TOPICAL SUWE 10/17/23 12/29/23 History Linaclotide [Linzess] 72 mcg PO DAILY 10/17/23 12/29/23 History Loratadine [Claritin] 10 mg PO DAILY 10/17/23 12/29/23 History Mag Hydrox/Al Hydrox/Simeth 30 ml PO QID PRN 10/17/23 12/29/23 History [Maalox] Metoclopramide [Reglan] 10 mg PO ACHS PRN 10/17/23 12/29/23 History Fhw-Etbx-Wcfqa Acid 1 cap PO W/BRKFST 10/17/23 12/29/23 History [-U Capsule (formulary)] Rizatriptan Benzoate [Rizatriptan] 5 mg PO BID PRN 10/17/23 12/29/23 History Silver Sulfadiazine [Silver 1 applic TOPICAL BID PRN 10/17/23 12/29/23 History Sulfadiazine 1%] fluvoxaMINE MALEATE [Luvox] 50 mg PO HS 10/17/23 12/29/23 History predniSONE 5 mg PO W/BRKFST 10/17/23 12/29/23 History Cefdinir [Omnicef] 300 mg PO Q12HR 12/29/23 12/29/23 History [place] Carbonate [[place] 600 mg PO HS 12/29/23 12/29/23 History Carbonate ER] methylPREDNISolone Dose Pack See Taper PO DIRECTED 12/29/23 12/29/23 History [Medrol Dose Pack] oxyCODONE HCL [OxyIR] 5 mg PO Q6H 12/29/23 12/29/23 History Allergies Allergy/AdvReac Type Severity Reaction Status Date / Time peanut oil Allergy Severe Nausea & Verified 12/29/23 21:58 Vomiting,itching barium sulfate Allergy Anaphylaxis Verified 12/29/23 21:58 doxepin [Doxepin] Allergy Anaphylaxis Verified 12/29/23 21:58 ephedrine Allergy Chest Verified 12/29/23 21:58 Pain/tachycardia ertapenem [From Invanz] Allergy Rash/Hives- Verified 12/29/23 21:58 like a chemical burn peanut Allergy Anaphylaxis Verified 12/29/23 21:58 pseudoephedrine Allergy Chest Pain Verified 12/29/23 21:58 Sulfa (Sulfonamide Allergy Nausea & Verified 12/29/23 21:58 Antibiotics) Vomiting, DEHYDRATION sumatriptan [From Imitrex] Allergy affects Verified 12/29/23 21:58 vision-unable to see for hrs. doxycycline AdvReac Nausea & Verified 12/29/23 21:58 Vomiting & Diarrhea pseudoephedrine HCl AdvReac chest Verified 12/29/23 21:58 [From Sudafed] pain/tachycardia sulfamethoxazole AdvReac Nausea & Verified 12/29/23 21:58 [From Bactrim] Vomiting Adhesive Tape AdvReac Rash/Hives Uncoded 12/29/23 15:40 Physical Exam Vitals: Vital Signs Temp Pulse Pulse Resp BP Pulse Ox 12/31/23 12:14 88 12/31/23 12:02 88 12/31/23 11:45 98.3 F 91 128/83 92 L 12/31/23 11:30 89 106/73 92 L 12/31/23 11:15 89 109/72 92 L 12/31/23 11:00 98.5 F 90 109/73 91 L 12/31/23 10:45 93 16 105/66 93 L 12/31/23 10:30 90 16 126/70 93 L 12/31/23 10:15 97.3 F L 92 18 106/66 93 L 12/31/23 09:09 96.5 F L 92 16 92/60 98 12/31/23 08:46 84 12/31/23 08:37 80 95 12/31/23 07:28 97.9 F 82 18 107/72 95 12/31/23 06:28 98.4 F 12/31/23 02:00 99.8 F H 81 17 110/76 95 12/30/23 20:27 94 12/30/23 20:19 92 12/30/23 20:00 98.9 F 92 16 114/79 93 L 12/30/23 13:10 97.2 F L 91 18 128/84 97 Intake and Output 12/30/23 12/31/23 12/31/23 22:59 06:59 14:59 Intake Total 950 Output Total 5 Balance 945 Intake: IV 950 Output: Estimated Blood Loss 5 Other: # Voids 4 2 # Bowel Movements 4 Weight 110.223 kg General: Nontoxic, no distress and appears stated age. The patient is currently on 4 L of O2 nasal cannula Derm: Skin warm and dry, normal coloration for ethnicity. Head: Atraumatic, normocephalic and symmetric. Eyes: EOMs intact, no lid lag, and anicteric sclera Mouth: no lip lesions, mucus membranes moist Cardiovascular: regular rate and rhythm with normal S1S2, no murmur, positive po sterior tibial pulses bilaterally, and cap refill < 2 seconds. Lungs: Respirations even, regular, and unlabored on room air. Lungs CTA bilaterally, no rhonchi, no rales, no wheezing, and no accessory muscle usage. Abdominal: soft, nontender to palpation, no guarding, no appreciable organomegaly Ext: ROM intact. No gross muscle atrophy, no edema, no contractures Neuro: Speech clear, face symmetrical and CN II-XII grossly intact with no noted focal neuro deficits Psych: Alert and oriented to person, place, time, and situation. Appropriate and pleasant affect. Results - Laboratory Findings CBC and BMP: 12/31/23 07:52 12/31/23 07:52 PT/INR, D-dimer PT 10.8 sec (10.0-12.5) 12/29/23 16:40 INR 1.0 (<1.2) 12/29/23 16:40 Abnormal lab findings: Abnormal Labs 12/29/23 12/29/23 12/29/23 16:40 16:40 16:40 RBC 3.27 L Hgb 9.7 L D Hct 29.2 L Lymphocytes # 0.9 L APTT 35.7 H Sodium 133 L Potassium Chloride Carbon Dioxide 18 L BUN Creatinine 0.49 L Glucose 237 H POC Glucose (mg/dL) Calcium C-Reactive Protein 37.1 H Total Protein 5.5 L Albumin 3.0 L Urine Protein Urine Glucose (UA) 12/29/23 12/30/23 12/30/23 17:01 05:52 10:54 RBC Hgb Hct Lymphocytes # APTT Sodium Potassium Chloride Carbon Dioxide BUN Creatinine Glucose POC Glucose (mg/dL) 205 H 185 H Calcium C-Reactive Protein Total Protein Albumin Urine Protein Trace H Urine Glucose (UA) 1+ H 12/30/23 12/30/23 12/31/23 17:10 20:13 06:09 RBC Hgb Hct Lymphocytes # APTT Sodium Potassium Chloride Carbon Dioxide BUN Creatinine Glucose POC Glucose (mg/dL) 238 H 308 H 146 H Calcium C-Reactive Protein Total Protein Albumin Urine Protein Urine Glucose (UA) 12/31/23 12/31/23 12/31/23 07:52 07:52 07:52 RBC 2.84 L Hgb 8.4 L Hct 26.5 L Lymphocytes # APTT Sodium Potassium 3.4 L Chloride 114 H Carbon Dioxide 19 L BUN 5 L Creatinine 0.42 L 0.44 L Glucose 158 H POC Glucose (mg/dL) Calcium 7.9 L C-Reactive Protein Total Protein 4.7 L Albumin 2.3 L Urine Protein Urine Glucose (UA) 12/31/23 12/31/23 12/31/23 09:11 10:31 11:19 RBC Hgb Hct Lymphocytes # APTT Sodium Potassium Chloride Carbon Dioxide BUN Creatinine Glucose POC Glucose (mg/dL) 222 H 232 H 240 H Calcium C-Reactive Protein Total Protein Albumin Urine Protein Urine Glucose (UA) Assessment and Plan Plan: Bilateral pneumonia, most likely staphylococcal pneumonia. The CAT scan of the chest was noted that there were areas of nodular infiltration in addition to areas of consolidation. This obviously raises the concern for septic emboli to the brain. Obviously hematogenous spread to the lungs is also another likely possibility. However, nodular structures will indicate septic emboli. There is also findings consistent with CHF with pulm vessel congestion which obviously raises the concern for infective endocarditis secondary heart failure. Acute hypoxic respiratory failure currently on 4 L of oxygen by nasal cannula Mediport infection MRSA septicemia currently on vancomycin Mitochondrial metabolic disorder History of CVA Dysautonomia Intracranial hypertension, idiopathic Lupus disorder Emily's thyroiditis Previous history of DVTs History of pituitary microadenoma Patent foramen ovale Narcolepsy Gastroparesis Migraines Pernicious anemia Polycystic ovary syndrome Peripheral neuropathy Difficulty with mobility and the patient needs a wheelchair for mobility Lupus anticoagulant Obstructive sleep apnea Plan Continue vancomycin Repeat blood cultures to evaluate persistence or resolution of the bacteremia Recommended GERSON for possibility of infective endocarditis The Mediport has been removed Hemodynamically stable Titrate oxygen flow to maintain saturation above 90% Resume home medication Will continue to follow
[2023-12-31 16:33] LABS: Glucose,Whole Blood 220 mg/dL (70-110)
[2023-12-31] MEDS: POTASSIUM CHLORIDE ER 20 MEQ TAB.ER PO STA (17:24)
[2023-12-31] MEDS: LACTOBACILLUS ACIDOPHILUS/PECT 1 EACH CAPSULE PO SCH (17:24)
[2023-12-31] MEDS ORDERED: RIVAROXABAN 20 MG TAB PO SCH (18:00)
--- NOTE | 2023-12-31 18:00 | P.PN ---
Subjective Progress Note Date: 12/31/23 (delayed charting seen at 1130) Patient is a mitochondrial disorder, paraplegia and is wheelchair-bound, hypertension, dyslipidemia, lupus, thyroiditis?, Uyz-ioibzwd-ssnubkbth diabetes, obstructive sleep apnea on CPAP, multiple other comorbidities who presented to the ER after being found to have positive blood cultures. Patient initially was seen in the ER 4 days prior to admission complaining of fevers and had blood cultures drawn which turned positive for MRSA and she was subsequently asked to come back to the hospital. On arrival to the ER her vitals were remarkable for a pulse of 109. Initial laboratory analysis was remarkable for hemoglobin 9.7, sodium 133, carbon dioxide 18, CRP 37.1. Influenza A/B/RSV/COVID-19 testing was negative. Patient had a chest x-ray which showed right upper lobe opacification. Patient was started on vancomycin. Arrangements were made for admission. Infectious disease and vascular surgery were consulted. She has a Port-A-Cath which was felt to be infected. This was removed on 12/31/2023. She underwent CT chest on 12/30/2023 which demonstrated diffuse airspace disease with possible septic emboli. Patient seen and examined at bedside. She continues to feel weak have a cough and some shortness of breath. She is having some chest discomfort after having her Port-A-Cath removed. She does report diarrhea. Vital signs reviewed General: Ill-appearing, no distress, appears at stated age Cardiovascular: S1S2 reg, no murmur Lungs: Coarse breath sounds bilateral, no rhonchi, no rales, no accessory muscle use Abdominal: Soft, nontender to palpation, no guarding Ext: + gross muscle atrophy b/l LE, no edema b/l lower extremities, no contra ctures Neuro: CN II-XI grossly intact, + b/l foot drop, gross muscle wasting b/l LE Psych: Alert, oriented, appropriate affect Assessment/Plan: MRSA bacteremia Multifocal pneumonia, possible septic emboli Acute hypoxic respiratory failure Mitochondrial disorder --Infected [id number] removed on 12/31/2023 --Pulmonary consulted and note reviewed: Possible GERSON, continue with vancomycin, down titrate O2 -Await echocardiogram -Continue with vancomycin day #3, follow vancomycin trough and and creatinine regarding toxicity -Await further infectious disease recommendations -Follow blood cultures until clear Diabetes -Hold home medications, started on sliding scale insulin -Hold Actos and semaglutide look -A1c 6.8 Chronic: Hypertension Dyslipidemia DVT? Lupus? Hypothyroidism Depression/anxiety GERD Asthma without exacerbation PAUL with CPAP use Imaging: None new Data Review: Labs reviewed from today include CBC, CMP, and A1c which are remarkable for hemoglobin 8.4, potassium 3.4, carbon dioxide 19, hemoglobin A1c 6.8 DVT prophylaxis: Heparin today and resume Eliquis tomorrow due to history of blood clots Anticipated discharge date: Pending Clinical Course Anticipated discharge place: Pending Clinical Course This dictation was prepared using [employer] voice recognition software. Though every attempt is made to correct errors during dictation some may still exist. Objective - Vital Signs Vital signs: Vital Signs Temp 98 F 12/31/23 13:09 Pulse 84 12/31/23 16:17 Resp 18 12/31/23 13:09 BP 118/79 12/31/23 13:09 Pulse Ox 94 L 12/31/23 13:09 FiO2 Intake & Output 12/30/23 12/31/23 12/31/23 18:59 06:59 18:59 Intake Total 950 Output Total 5 Balance 945 Weight 110.223 kg 110.223 kg Intake: IV 950 Output: Estimated Blood Loss 5 Other: Voiding Method Bedside Commode # Voids 4 2 3 # Bowel Movements 4 1 - Labs CBC & Chem 7: 12/31/23 07:52 12/31/23 07:52 Labs: Abnormal Lab Results - Last 24 Hours (Table) 12/30/23 12/31/23 12/31/23 Range/Units 20:13 06:09 07:52 RBC (3.80-5.40) m/uL Hgb (11.4-16.0) gm/dL Hct (34.0-46.0) % Potassium (3.5-5.1) mmol/L Chloride (98-107) mmol/L Carbon Dioxide (22-30) mmol/L BUN (7-17) mg/dL Creatinine (0.52-1.04) mg/dL Glucose (74-99) mg/dL POC Glucose (mg/dL) 308 H 146 H (70-110) mg/dL Hemoglobin A1c 6.8 H (<=6.0) % Calcium (8.4-10.2) mg/dL Total Protein (6.3-8.2) g/dL Albumin (3.5-5.0) g/dL 12/31/23 12/31/23 12/31/23 Range/Units 07:52 07:52 07:52 RBC 2.84 L (3.80-5.40) m/uL Hgb 8.4 L (11.4-16.0) gm/dL Hct 26.5 L (34.0-46.0) % Potassium 3.4 L (3.5-5.1) mmol/L Chloride 114 H (98-107) mmol/L Carbon Dioxide 19 L (22-30) mmol/L BUN 5 L (7-17) mg/dL Creatinine 0.42 L 0.44 L (0.52-1.04) mg/dL Glucose 158 H (74-99) mg/dL POC Glucose (mg/dL) (70-110) mg/dL Hemoglobin A1c (<=6.0) % Calcium 7.9 L (8.4-10.2) mg/dL Total Protein 4.7 L (6.3-8.2) g/dL Albumin 2.3 L (3.5-5.0) g/dL 12/31/23 12/31/23 12/31/23 Range/Units 09:11 10:31 11:19 RBC (3.80-5.40) m/uL Hgb (11.4-16.0) gm/dL Hct (34.0-46.0) % Potassium (3.5-5.1) mmol/L Chloride (98-107) mmol/L Carbon Dioxide (22-30) mmol/L BUN (7-17) mg/dL Creatinine (0.52-1.04) mg/dL Glucose (74-99) mg/dL POC Glucose (mg/dL) 222 H 232 H 240 H (70-110) mg/dL Hemoglobin A1c (<=6.0) % Calcium (8.4-10.2) mg/dL Total Protein (6.3-8.2) g/dL Albumin (3.5-5.0) g/dL 12/31/23 Range/Units 16:32 RBC (3.80-5.40) m/uL Hgb (11.4-16.0) gm/dL Hct (34.0-46.0) % Potassium (3.5-5.1) mmol/L Chloride (98-107) mmol/L Carbon Dioxide (22-30) mmol/L BUN (7-17) mg/dL Creatinine (0.52-1.04) mg/dL Glucose (74-99) mg/dL POC Glucose (mg/dL) 220 H (70-110) mg/dL Hemoglobin A1c (<=6.0) % Calcium (8.4-10.2) mg/dL Total Protein (6.3-8.2) g/dL Albumin (3.5-5.0) g/dL Microbiology - Last 24 Hours (Table) 12/29/23 17:10 Blood Culture Gram Stain - Preliminary Blood Blood Culture - Preliminary Presumptive MRSA 12/29/23 17:00 Blood Culture Gram Stain - Preliminary Blood Blood Culture - Preliminary Presumptive MRSA
[2023-12-31 20:01] LABS: Glucose,Whole Blood 256 mg/dL (70-110)
[2023-12-31] MEDS: traZODone HCL 100 MG TAB PO SCH (21:04)
[2023-12-31] MEDS: INSULIN DETEMIR (LEVEMIR) 100 UNIT/ML SYR SQ SCH (21:10)
[2024-01-01] MEDS ORDERED: HEPARIN SODIUM,PORCINE 5,000 UNIT/ML 1 ML VIAL SQ SCH
[2024-01-01] MEDS: HEPARIN SODIUM,PORCINE 5,000 UNIT/ML 1 ML VIAL SQ SCH (01:00)
[2024-01-01 06:02] LABS: Glucose,Whole Blood 118 mg/dL (70-110)
[2024-01-01 06:49] LABS: ALT 21 U/L (4-34); AST 25 U/L (14-36); African American GFR (CKD) >90 (>60 ml/min/1.73 sqM); Albumin 2.4 g/dL (3.5-5.0); Alkaline Phosphatase 61 U/L (38-126); Anion Gap 5 mmol/L; Blood Urea Nitrogen 4 mg/dL (7-17); Calcium 7.6 mg/dL (8.4-10.2); Carbon Dioxide 19 mmol/L (22-30); Chloride 114 mmol/L (98-107); Globulin 2.3 g/dL; Glucose 124 mg/dL (74-99); Non-African American GFR(CKD) >90 (>60 ml/min/1.73 sqM); Potassium 3.3 mmol/L (3.5-5.1); Sodium 138 mmol/L (137-145); Total Bilirubin 0.2 mg/dL (0.2-1.3); Total Protein 4.7 g/dL (6.3-8.2)
[2024-01-01 09:32] LABS: MCH 28.8 pg (27.0-32.0); MCV 89.9 FL (80.0-97.0); Mean Platelet Volume 9.8 FL (9.5-12.2); NRBC Per 100 WBC 0.03 X 10*3/uL (0.00-0.01); Platelet Count 346 X 10*3/uL (140-440); RBC 2.78 X 10*6/uL (4.10-5.20); RDW 15.6 % (11.5-14.5); WBC 8.03 X 10*3/uL (4.50-10.00)
[2024-01-01 11:32] LABS: Glucose,Whole Blood 194 mg/dL (70-110)
[2024-01-01] MEDS: POTASSIUM CHLORIDE ER 20 MEQ TAB.ER PO STA (11:49)
[2024-01-01] MEDS: LOPERAMIDE 2 MG CAP PO STA (11:49)
--- NOTE | 2024-01-01 12:54 | P.PN ---
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 Patient did have a removal of infected Ynkruk-i-Smnq by vascular surgery on 12/31/2023 On today's evaluation 12/31/2023, the patient did have resolution of her fever and is afebrile this morning, patient is breathing comfortably on 4 L nasal cannula oxygen however complaining of shortness of breath and also have a cough but not bringing up any sputum also complains of some nausea but did not have any vomiting and some abdominal pain but no diarrhea Patient white count is 8.0, creatinine 0.44 Vanco trough is 19.2 Objective - Vital Signs Vital signs: Vital Signs Temp 98.3 F 12/31/23 11:45 Pulse 88 12/31/23 12:14 Resp 16 12/31/23 10:45 BP 128/83 12/31/23 11:45 Pulse Ox 92 L 12/31/23 11:45 FiO2 Intake & Output 12/30/23 12/31/23 12/31/23 18:59 06:59 18:59 Intake Total 950 Output Total 5 Balance 945 Weight 110.223 kg 110.223 kg Intake: IV 950 Output: Estimated Blood Loss 5 Other: Voiding Method Bedside Commode # Voids 4 2 # Bowel Movements 4 - Exam GENERAL DESCRIPTION: Middle-aged female up in bed in no distress RESPIRATORY SYSTEM: Unlabored breathing , decreased breath sounds at bases HEART: S1 S2 regular rate and rhythm , ABDOMEN: Soft , no tenderness EXTREMITIES: No edema feet - Labs CBC & Chem 7: 01/01/24 06:23 01/01/24 06:23 Labs: Abnormal Lab Results - Last 24 Hours (Table) 12/30/23 12/30/23 12/31/23 Range/Units 17:10 20:13 06:09 RBC (3.80-5.40) m/uL Hgb (11.4-16.0) gm/dL Hct (34.0-46.0) % Potassium (3.5-5.1) mmol/L Chloride (98-107) mmol/L Carbon Dioxide (22-30) mmol/L BUN (7-17) mg/dL Creatinine (0.52-1.04) mg/dL Glucose (74-99) mg/dL POC Glucose (mg/dL) 238 H 308 H 146 H (70-110) mg/dL Calcium (8.4-10.2) mg/dL Total Protein (6.3-8.2) g/dL Albumin (3.5-5.0) g/dL 12/31/23 12/31/23 12/31/23 Range/Units 07:52 07:52 07:52 RBC 2.84 L (3.80-5.40) m/uL Hgb 8.4 L (11.4-16.0) gm/dL Hct 26.5 L (34.0-46.0) % Potassium 3.4 L (3.5-5.1) mmol/L Chloride 114 H (98-107) mmol/L Carbon Dioxide 19 L (22-30) mmol/L BUN 5 L (7-17) mg/dL Creatinine 0.42 L 0.44 L (0.52-1.04) mg/dL Glucose 158 H (74-99) mg/dL POC Glucose (mg/dL) (70-110) mg/dL Calcium 7.9 L (8.4-10.2) mg/dL Total Protein 4.7 L (6.3-8.2) g/dL Albumin 2.3 L (3.5-5.0) g/dL 12/31/23 12/31/23 12/31/23 Range/Units 09:11 10:31 11:19 RBC (3.80-5.40) m/uL Hgb (11.4-16.0) gm/dL Hct (34.0-46.0) % Potassium (3.5-5.1) mmol/L Chloride (98-107) mmol/L Carbon Dioxide (22-30) mmol/L BUN (7-17) mg/dL Creatinine (0.52-1.04) mg/dL Glucose (74-99) mg/dL POC Glucose (mg/dL) 222 H 232 H 240 H (70-110) mg/dL Calcium (8.4-10.2) mg/dL Total Protein (6.3-8.2) g/dL Albumin (3.5-5.0) g/dL Microbiology - Last 24 Hours (Table) 12/29/23 17:10 Blood Culture Gram Stain - Preliminary Blood Blood Culture - Preliminary Presumptive MRSA 12/29/23 17:00 Blood Culture Gram Stain - Preliminary Blood Blood Culture - Preliminary Presumptive MRSA Assessment and Plan (1) Infection due to Port-A-Cath Current Visit: Yes Status: Acute Code(s): T80.219A - UNSP INFECTION DUE TO CENTRAL VENOUS CATHETER, INIT ENCNTR SNOMED Code(s): 546284327 (2) MRSA bacteremia Current Visit: Yes Status: Acute Code(s): R78.81 - BACTEREMIA; B95.62 - METHICILLIN RESIS STAPH INFCT CAUSING DISEASES CLASSD [facility] SNOMED Code(s): 56060540979550068 Plan: 1patient presented to hospital with sepsis in this patient who did have a fever tachycardia source is likely Mediport infection hide this patient with evidence of MRSA bacteremia patient also have respiratory symptoms and chest x-ray showing evidence of pneumonia could be related to the MRSA 2-we will try to obtain sputum for culture and culture check a CRP and a procalcitonin level 3-patient is status post removal of Pwhxzu-p-Unlk by vascular surgery on 12/31/2023 4-blood cultures has been repeated to document clearance of bacteremia 5-patient to continue with vancomycin pharmacy to dose target trough of 15 while watching kidney function and Vanco trough closely Dictation was produced using [employer] dictation software. please excuse any grammatical, word or spelling errors. Time with Patient: Less than 30
--- NOTE | 2024-01-01 12:55 | P.PN ---
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 Patient did have a removal of infected Wpsjvq-h-Idel by vascular surgery on 12/31/2023 On today's evaluation 01/01/2024,the patient remains to be afebrile, patient is on 4 L nasal cannula supplemental oxygen, patient complaining of not feeling well still complaining of shortness of breath and did have a cough but not bring up any sputum some nausea but no vomiting no abdominal pain or diarrhea. Patient white count is 8.2, creatinine 0.43 blood culture repeat currently not showing up in the system Objective - Vital Signs Vital signs: Vital Signs Temp 98.7 F 01/01/24 07:55 Pulse 84 01/01/24 11:39 Resp 19 01/01/24 07:55 BP 108/72 01/01/24 07:55 Pulse Ox 96 01/01/24 08:17 FiO2 Intake & Output 12/31/23 01/01/24 01/01/24 18:59 06:59 18:59 Intake Total 950 2360 Output Total 5 Balance 945 2360 Weight 110.223 kg Intake: IV 950 Intake, IV Titration 1560 Amount Sodium Chloride 0.9% 1, 1560 000 ml @ 130 mls/hr IV . Q7H42M [facility] Rx#:[id number] Oral 800 Output: Estimated Blood Loss 5 Other: # Voids 3 2 # Bowel Movements 1 - Exam GENERAL DESCRIPTION: Middle-aged female up in bed in no distress RESPIRATORY SYSTEM: Unlabored breathing , decreased breath sounds at bases HEART: S1 S2 regular rate and rhythm , ABDOMEN: Soft , no tenderness EXTREMITIES: No edema feet - Labs CBC & Chem 7: 01/01/24 06:23 01/01/24 06:23 Labs: Abnormal Lab Results - Last 24 Hours (Table) 12/31/23 12/31/23 12/31/23 Range/Units 07:52 16:32 19:36 RBC (4.10-5.20) X 10*6/uL Hgb (12.0-15.0) g/dL Hct (37.2-46.3) % RDW (11.5-14.5) % NRBC/100 WBC Diff (0.00-0.01) X 10*3/uL Potassium (3.5-5.1) mmol/L Chloride (98-107) mmol/L Carbon Dioxide (22-30) mmol/L BUN (7-17) mg/dL Creatinine (0.52-1.04) mg/dL Glucose (74-99) mg/dL POC Glucose (mg/dL) 220 H 256 H (70-110) mg/dL Hemoglobin A1c 6.8 H (<=6.0) % Calcium (8.4-10.2) mg/dL Total Protein (6.3-8.2) g/dL Albumin (3.5-5.0) g/dL 01/01/24 01/01/24 01/01/24 Range/Units 05:54 06:23 06:23 RBC 2.78 L (4.10-5.20) X 10*6/uL Hgb 8.0 L (12.0-15.0) g/dL Hct 25.0 L (37.2-46.3) % RDW 15.6 H (11.5-14.5) % NRBC/100 WBC Diff 0.03 H (0.00-0.01) X 10*3/uL Potassium 3.3 L (3.5-5.1) mmol/L Chloride 114 H (98-107) mmol/L Carbon Dioxide 19 L (22-30) mmol/L BUN 4 L (7-17) mg/dL Creatinine 0.43 L (0.52-1.04) mg/dL Glucose 124 H (74-99) mg/dL POC Glucose (mg/dL) 118 H (70-110) mg/dL Hemoglobin A1c (<=6.0) % Calcium 7.6 L (8.4-10.2) mg/dL Total Protein 4.7 L (6.3-8.2) g/dL Albumin 2.4 L (3.5-5.0) g/dL 01/01/24 Range/Units 11:31 RBC (4.10-5.20) X 10*6/uL Hgb (12.0-15.0) g/dL Hct (37.2-46.3) % RDW (11.5-14.5) % NRBC/100 WBC Diff (0.00-0.01) X 10*3/uL Potassium (3.5-5.1) mmol/L Chloride (98-107) mmol/L Carbon Dioxide (22-30) mmol/L BUN (7-17) mg/dL Creatinine (0.52-1.04) mg/dL Glucose (74-99) mg/dL POC Glucose (mg/dL) 194 H (70-110) mg/dL Hemoglobin A1c (<=6.0) % Calcium (8.4-10.2) mg/dL Total Protein (6.3-8.2) g/dL Albumin (3.5-5.0) g/dL Microbiology - Last 24 Hours (Table) 12/29/23 17:10 Blood Culture Gram Stain - Final Blood Blood Culture - Final Methicillin resist S. aureus 12/29/23 17:00 Blood Culture Gram Stain - Final Blood Blood Culture - Final Methicillin resist S. aureus Assessment and Plan (1) Infection due to Port-A-Cath Current Visit: Yes Status: Acute Code(s): T80.219A - UNSP INFECTION DUE TO CENTRAL VENOUS CATHETER, INIT ENCNTR SNOMED Code(s): 140466883 (2) MRSA bacteremia Current Visit: Yes Status: Acute Code(s): R78.81 - BACTEREMIA; B95.62 - METHICILLIN RESIS STAPH INFCT CAUSING DISEASES [facility] Code(s): 60593293206605161 Plan: 1patient presented to hospital with sepsis in this patient who did have a fever tachycardia source is likely Mediport infection hide this patient with evidence of MRSA bacteremia patient also have respiratory symptoms and chest x-ray showi ng evidence of pneumonia could be related to the MRSA 2-we will try to obtain sputum for culture and culture check a CRP and a procalcitonin level 3-patient is status post removal of Twrork-r-Juke by vascular surgery on 12/31/2023 4-blood cultures has been repeated to document clearance of bacteremia however not showing up in the system will confirm with the micro lab to make sure there are cultures pending 5-patient to continue with vancomycin pharmacy to dose target trough of 15 while watching kidney function and Vanco trough closely, will place a PICC line once her repeat cultures negative Dictation was produced using [employer] dictation software. please excuse any grammatical, word or spelling errors. Time with Patient: Less than 30
--- NOTE | 2024-01-01 13:28 | P.PN ---
Subjective Progress Note Date: 01/01/24 I was asked to evaluate this patient for pneumonia. The patient was hospitalized for staph sepsis, likely MRSA and the patient has positive blood cultures. The patient is morbidly obese with a BMI of 40. She is known to have multiple medical problems and the patient has required a Mediport insertion for hydration as the patient is known to have underlying mitochondrial disorder, hypertension, hyperlipidemia, lupus, Emily's thyroiditis, obstructive sleep apnea, DVT on anticoagulation, chronic anxiety bipolar disorder with history of depression. She had a Mediport that was infected. She was in the emergency department where blood cultures were taken and the patient turned out to have positive Staph aureus and she came back to the hospital for further care. She is currently hospitalized. Denies having any chest pain or hemoptysis. She has some exertional dyspnea. Had a viral panel came back negative. As far as his blood work, the patient has a White cell count of 8 with a hemoglobin 8.4 and a platelet count of 307, sodium is at 139, potassium of 3.4, BUN is afebrile creatinine 0.44 and serum bicarb is at 19. LFTs are normal. The patient had blood cultures obtained on 12/29/2023 a total of 4 sets came back positive for MRSA and another blood culture on 12/25/2023 was also positive for Staph aureus/MRSA. The patient was started on IV antibiotics and the patient is currently on IV vancomycin with pharmacy to dose. Home medications have been resumed. She is currently on oxygen at 4 L with a pulse ox of 92%. Chest x-ray was also abnormal and showed bilateral pulmonary filtrates and consolidation in the right upper lobe zone and right perihilar area and in the left upper zone consistent with multifocal pneumonia. Based on that, the patient was given a CT scan of the chest that showed evidence of bilateral nodular opacities which may reflect septic emboli and the patient also has areas of diffuse airspace disease and consolidation and new pulm vessel congestion pleural effusion consistent with CHF. On 01/01/2024, the patient remains on 4 L of oxygen nasal cannula. Repeat cultures were sent. The patient is having some respiratory distress even at rest. No chest pain. No significant sputum production or hemoptysis. GERSON needs to be done to rule out underlying endocarditis. The Mediport has been removed and the patient remains on vancomycin. Labs from today are all stable with a white cell count of 8 hemoglobin of 8 and a platelet count of 346 and a BUN is at 4 with a creatinine of 0.4 and the sodium level is at 138. No interval worsening in her respiratory status. As mentioned, the patient has multiple areas of consolidation and nodular densities consistent with possibility of septic emboli versus hematogenous right of the bacteria to her lungs. Strongly suspect staphylococcal pneumonia. No reported nausea or emesis. Mental status is stable. No headaches. No seizure activity. Objective - Vital Signs Vital signs: Vital Signs Temp 98.7 F 01/01/24 07:55 Pulse 84 01/01/24 08:26 Resp 19 01/01/24 07:55 BP 108/72 01/01/24 07:55 Pulse Ox 96 01/01/24 08:17 FiO2 Intake & Output 12/31/23 01/01/24 01/01/24 18:59 06:59 18:59 Intake Total 950 2360 Output Total 5 Balance 945 2360 Weight 110.223 kg Intake: IV 950 Intake, IV Titration 1560 Amount Sodium Chloride 0.9% 1, 1560 000 ml @ 130 mls/hr IV . Q7H42M [facility] Rx#:[id number] Oral 800 Output: Estimated Blood Loss 5 Other: # Voids 3 2 # Bowel Movements 1 - Exam General: Nontoxic, no distress and appears stated age. The patient is currently on 4 L of O2 nasal cannula Derm: Skin warm and dry, normal coloration for ethnicity. Head: Atraumatic, normocephalic and symmetric. Eyes: EOMs intact, no lid lag, and anicteric sclera Mouth: no lip lesions, mucus membranes moist Cardiovascular: regular rate and rhythm with normal S1S2, no murmur, positive posterior tibial pulses bilaterally, and cap refill < 2 seconds. Lungs: Respirations even, regular, and unlabored on room air. Lungs CTA bilaterally, no rhonchi, no rales, no wheezing, and no accessory muscle usage. Abdominal: soft, nontender to palpation, no guarding, no appreciable organomegaly Ext: ROM intact. No gross muscle atrophy, no edema, no contractures Neuro: Speech clear, face symmetrical and CN II-XII grossly intact with no noted focal neuro deficits Psych: Alert and oriented to person, place, time, and situation. Appropriate and pleasant affect. - Labs CBC & Chem 7: 01/01/24 06:23 01/01/24 06:23 Labs: Abnormal Lab Results - Last 24 Hours (Table) 12/31/23 12/31/23 12/31/23 Range/Units 07:52 10:31 11:19 RBC (4.10-5.20) X 10*6/uL Hgb (12.0-15.0) g/dL Hct (37.2-46.3) % RDW (11.5-14.5) % NRBC/100 WBC Diff (0.00-0.01) X 10*3/uL Potassium (3.5-5.1) mmol/L Chloride (98-107) mmol/L Carbon Dioxide (22-30) mmol/L BUN (7-17) mg/dL Creatinine (0.52-1.04) mg/dL Glucose (74-99) mg/dL POC Glucose (mg/dL) 232 H 240 H (70-110) mg/dL Hemoglobin A1c 6.8 H (<=6.0) % Calcium (8.4-10.2) mg/dL Total Protein (6.3-8.2) g/dL Albumin (3.5-5.0) g/dL 12/31/23 12/31/23 01/01/24 Range/Units 16:32 19:36 05:54 RBC (4.10-5.20) X 10*6/uL Hgb (12.0-15.0) g/dL Hct (37.2-46.3) % RDW (11.5-14.5) % NRBC/100 WBC Diff (0.00-0.01) X 10*3/uL Potassium (3.5-5.1) mmol/L Chloride (98-107) mmol/L Carbon Dioxide (22-30) mmol/L BUN (7-17) mg/dL Creatinine (0.52-1.04) mg/dL Glucose (74-99) mg/dL POC Glucose (mg/dL) 220 H 256 H 118 H (70-110) mg/dL Hemoglobin A1c (<=6.0) % Calcium (8.4-10.2) mg/dL Total Protein (6.3-8.2) g/dL Albumin (3.5-5.0) g/dL 01/01/24 01/01/24 Range/Units 06:23 06:23 RBC 2.78 L (4.10-5.20) X 10*6/uL Hgb 8.0 L (12.0-15.0) g/dL Hct 25.0 L (37.2-46.3) % RDW 15.6 H (11.5-14.5) % NRBC/100 WBC Diff 0.03 H (0.00-0.01) X 10*3/uL Potassium 3.3 L (3.5-5.1) mmol/L Chloride 114 H (98-107) mmol/L Carbon Dioxide 19 L (22-30) mmol/L BUN 4 L (7-17) mg/dL Creatinine 0.43 L (0.52-1.04) mg/dL Glucose 124 H (74-99) mg/dL POC Glucose (mg/dL) (70-110) mg/dL Hemoglobin A1c (<=6.0) % Calcium 7.6 L (8.4-10.2) mg/dL Total Protein 4.7 L (6.3-8.2) g/dL Albumin 2.4 L (3.5-5.0) g/dL Microbiology - Last 24 Hours (Table) 12/29/23 17:10 Blood Culture Gram Stain - Final Blood Blood Culture - Final Methicillin resist S. aureus 12/29/23 17:00 Blood Culture Gram Stain - Final Blood Blood Culture - Final Methicillin resist S. aureus Assessment and Plan Plan: Bilateral pneumonia, most likely staphylococcal pneumonia. The CAT scan of the chest was noted that there were areas of nodular infiltration in addition to areas of consolidation. This obviously raises the concern for septic emboli to the brain. Obviously hematogenous spread to the lungs is also another likely possibility. However, nodular structures will indicate septic emboli. There is also findings consistent with CHF with pulm vessel congestion which obviously raises the concern for infective endocarditis secondary heart failure. Overall respiratory status remains unchanged compared to yesterday. The presentation is highly suspicious for staphylococcal pneumonia/MRSA. Endocarditis needs to be ruled out. Acute hypoxic respiratory failure currently on 4 L of oxygen by nasal cannula Mediport infection MRSA septicemia currently on vancomycin Mitochondrial metabolic disorder History of CVA Dysautonomia Intracranial hypertension, idiopathic Lupus disorder Emily's thyroiditis Previous history of DVTs History of pituitary microadenoma Patent foramen ovale Narcolepsy Gastroparesis Migraines Pernicious anemia Polycystic ovary syndrome Peripheral neuropathy Difficulty with mobility and the patient needs a wheelchair for mobility Lupus anticoagulant Obstructive sleep apnea Plan Continue vancomycin Monitor vancomycin level per pharmacy Repeat blood cultures to evaluate persistence or resolution of the bacteremia, blood cultures were sent today White cell count is stable No new onset neurological symptoms Recommended GERSON for possibility of infective endocarditis, this needs to be done within the next 24 to 48 hours The Mediport has been removed Hemodynamically stable Titrate oxygen flow to maintain saturation above 90% Resume home medication Follow-up chest x-ray in the next 24 to 48 hours Will continue to follow
--- NOTE | 2024-01-01 15:37 | P.PN ---
Subjective Progress Note Date: 01/01/24 (delayed charting seen at 1045) Patient is a mitochondrial disorder, paraplegia and is wheelchair-bound, hypertension, dyslipidemia, lupus, thyroiditis?, Xae-uuodsxd-xbyvsored diabetes, obstructive sleep apnea on CPAP, multiple other comorbidities who presented to the ER after being found to have positive blood cultures. Patient initially was seen in the ER 4 days prior to admission complaining of fevers and had blood cultures drawn which turned positive for MRSA and she was subsequently asked to come back to the hospital. On arrival to the ER her vitals were remarkable for a pulse of 109. Initial laboratory analysis was remarkable for hemoglobin 9.7, sodium 133, carbon dioxide 18, CRP 37.1. Influenza A/B/RSV/COVID-19 testing was negative. Patient had a chest x-ray which showed right upper lobe opacification. Patient was started on vancomycin. Arrangements were made for admission. Infectious disease and vascular surgery were consulted. She has a Port-A-Cath which was felt to be infected. This was removed on 12/31/2023. She underwent CT chest on 12/30/2023 which demonstrated diffuse airspace disease with possible septic emboli. Patient seen and examined at bedside. Continues to not feel well. She is feeling very tired overall. She continues to have multiple bowel movements. She is feeling short of breath and having a cough. Vital signs reviewed General: Ill-appearing, no distress, appears at stated age Cardiovascular: S1S2 reg, no murmur Lungs: Coarse breath sounds bilateral, no rhonchi, no rales, no accessory muscle use Abdominal: Soft, nontender to palpation, no guarding Ext: + gross muscle atrophy b/l LE, no edema b/l lower extremities, no contractures Neuro: CN II-XI grossly intact, + b/l foot drop, gross muscle wasting b/l LE Psych: Alert, oriented, appropriate affect Assessment/Plan: MRSA bacteremia Multifocal pneumonia, possible septic emboli Acute hypoxic respiratory failure Mitochondrial disorder --Infected Syhluq-t-Drgh removed on 12/31/2023 --Pulmonary consulted and note reviewed: Possible GEROSN, continue with vancomycin, down titrate O2 -Infectious disease note reviewed: Continue with vancomycin. Continue to chucky tor blood cultures -Pulmonary note reviewed: Continue with current care -Await cardiology consultation -Await echocardiogram -Continue with vancomycin day #4, follow vancomycin trough and and creatinine regarding toxicity -Follow blood cultures until clear Diarrhea - no hx of C diff - lactobacillus TID -Imodium 2 mg x 1 Diabetes -SSI -Hold Actos and semaglutide -Levemir 5 units at night -Tradjenta 5 mg oral daily -A1c 6.8 Hypokalemia Potassium chloride 20 mill equivalents p.o. x 1 Chronic: Hypertension Dyslipidemia DVT? Lupus? Hypothyroidism Depression/anxiety GERD Asthma without exacerbation PAUL with CPAP use Imaging: None new Data Review: Labs reviewed from today include CBC and CMP which are remarkable for hemoglobin 8, potassium 3.3, chloride 114, carbon dioxide 19. DVT prophylaxis: Eliquis Anticipated discharge date: Pending Clinical Course Anticipated discharge place: Pending Clinical Course This dictation was prepared using [employer] voice recognition software. Though every attempt is made to correct errors during dictation some may still exist. Objective - Vital Signs Vital signs: Vital Signs Temp 98.4 F 01/01/24 13:13 Pulse 94 01/01/24 13:13 Resp 18 01/01/24 13:13 BP 107/69 01/01/24 13:13 Pulse Ox 94 L 01/01/24 13:13 FiO2 Intake & Output 12/31/23 01/01/24 01/01/24 18:59 06:59 18:59 Intake Total 950 2360 Output Total 5 Balance 945 2360 Weight 110.223 kg Intake: IV 950 Intake, IV Titration 1560 Amount Sodium Chloride 0.9% 1, 1560 000 ml @ 130 mls/hr IV . Q7H42M [facility] Rx#:[id number] Oral 800 Output: Estimated Blood Loss 5 Other: # Voids 3 2 # Bowel Movements 1 - Labs CBC & Chem 7: 01/01/24 06:23 01/01/24 06:23 Labs: Abnormal Lab Results - Last 24 Hours (Table) 12/31/23 12/31/23 01/01/24 Range/Units 16:32 19:36 05:54 RBC (4.10-5.20) X 10*6/uL Hgb (12.0-15.0) g/dL Hct (37.2-46.3) % RDW (11.5-14.5) % NRBC/100 WBC Diff (0.00-0.01) X 10*3/uL Potassium (3.5-5.1) mmol/L Chloride (98-107) mmol/L Carbon Dioxide (22-30) mmol/L BUN (7-17) mg/dL Creatinine (0.52-1.04) mg/dL Glucose (74-99) mg/dL POC Glucose (mg/dL) 220 H 256 H 118 H (70-110) mg/dL Calcium (8.4-10.2) mg/dL Total Protein (6.3-8.2) g/dL Albumin (3.5-5.0) g/dL 01/01/24 01/01/24 01/01/24 Range/Units 06:23 06:23 11:31 RBC 2.78 L (4.10-5.20) X 10*6/uL Hgb 8.0 L (12.0-15.0) g/dL Hct 25.0 L (37.2-46.3) % RDW 15.6 H (11.5-14.5) % NRBC/100 WBC Diff 0.03 H (0.00-0.01) X 10*3/uL Potassium 3.3 L (3.5-5.1) mmol/L Chloride 114 H (98-107) mmol/L Carbon Dioxide 19 L (22-30) mmol/L BUN 4 L (7-17) mg/dL Creatinine 0.43 L (0.52-1.04) mg/dL Glucose 124 H (74-99) mg/dL POC Glucose (mg/dL) 194 H (70-110) mg/dL Calcium 7.6 L (8.4-10.2) mg/dL Total Protein 4.7 L (6.3-8.2) g/dL Albumin 2.4 L (3.5-5.0) g/dL Microbiology - Last 24 Hours (Table) 12/29/23 17:10 Blood Culture Gram Stain - Final Blood Blood Culture - Final Methicillin resist S. aureus 12/29/23 17:00 Blood Culture Gram Stain - Final Blood Blood Culture - Final Methicillin resist S. aureus
[2024-01-01 16:29] LABS: Glucose,Whole Blood 158 mg/dL (70-110)
[2024-01-01] MEDS: RIVAROXABAN 20 MG TAB PO SCH (17:05)
[2024-01-01 19:45] LABS: Glucose,Whole Blood 157 mg/dL (70-110)
[2024-01-02] MEDS: METOCLOPRAMIDE 10 MG TAB PO PRN (05:41)
[2024-01-02 05:45] LABS: Glucose,Whole Blood 135 mg/dL (70-110)
[2024-01-02] MEDS: LEVOTHYROXINE 125 MCG TAB PO SCH (06:36)
[2024-01-02] MEDS: HYDROmorphone 0.5 MG/0.5 ML SYRINGE IVP STA (08:57)
[2024-01-02 11:12] LABS: BUN/Creat Ratio <7.00 Ratio (12.00-20.00); Blood Urea Nitrogen <3.5 mg/dL (9.0-27.0); Calcium 7.8 mg/dL (8.7-10.3); Carbon Dioxide 18.9 mmol/L (21.6-31.8); Chloride 110 mmol/L (96-109); Glucose 135 mg/dL (70-110); Potassium 3.4 mmol/L (3.5-5.5); Sodium 140 mmol/L (135-145)
[2024-01-02 11:24] LABS: Glucose,Whole Blood 163 mg/dL (70-110)
[2024-01-02 11:35] LABS: HCT 26.8 % (37.2-46.3); HGB 8.1 g/dL (12.0-15.0); MCH 28.8 pg (27.0-32.0); MCHC 30.2 g/dL (32.0-37.0); MCV 95.4 FL (80.0-97.0); Mean Platelet Volume 10.5 FL (9.5-12.2); NRBC Per 100 WBC 0.02 X 10*3/uL (0.00-0.01); Platelet Count 382 X 10*3/uL (140-440); RBC 2.81 X 10*6/uL (4.10-5.20); RDW 15.8 % (11.5-14.5); WBC 9.58 X 10*3/uL (4.50-10.00)
--- NOTE | 2024-01-02 11:40 | P.PN ---
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 Patient did have a removal of infected [id number]-Opde by vascular surgery on 12/31/2023 On today's yxzrejhjdu58/12/2024, the patient continues to be afebrile, the patient is on 4 L nasal cannula oxygen and breathing comfortably, the Pt denies having any chest pain denies any worsening cough or sputum production, the patient has been clinical some nausea but no vomiting some abdominal discomfort but no diarrhea. The patient white count is 9.58, creatinine 0.5, blood culture repeated 12/31/2023 so far negative catheter positive for MRSA Objective - Vital Signs Vital signs: Vital Signs Temp 98.7 F 01/02/24 07:02 Pulse 79 01/02/24 08:00 Resp 18 01/02/24 08:00 BP 123/82 01/02/24 07:02 Pulse Ox 97 01/02/24 07:02 FiO2 Intake & Output 01/01/24 01/02/24 01/02/24 18:59 06:59 18:59 Intake Total 1970 Balance 1969 Intake: Intake, IV Titration 1170 Amount Sodium Chloride 0.9% 1, 1170 000 ml @ 130 mls/hr IV . Q7H42M [facility] Rx#:[id number] Oral 800 Other: Voiding Method Bedside Commode # Voids 4 4 - Exam GENERAL DESCRIPTION: Middle-aged female up in bed in no distress RESPIRATORY SYSTEM: Unlabored breathing , decreased breath sounds at bases HEART: S1 S2 regular rate and rhythm , ABDOMEN: Soft , no tenderness EXTREMITIES: No edema feet - Labs CBC & Chem 7: 01/02/24 08:31 01/02/24 08:31 Labs: Abnormal Lab Results - Last 24 Hours (Table) 01/01/24 01/01/24 01/02/24 Range/Units 16:28 19:43 05:44 RBC (4.10-5.20) X 10*6/uL Hgb (12.0-15.0) g/dL Hct (37.2-46.3) % MCHC (32.0-37.0) g/dL RDW (11.5-14.5) % NRBC/100 WBC Diff (0.00-0.01) X 10*3/uL Potassium (3.5-5.5) mmol/L Chloride (96-109) mmol/L Carbon Dioxide (21.6-31.8) mmol/L BUN (9.0-27.0) mg/dL Creatinine (0.6-1.5) mg/dL BUN/Creatinine Ratio (12.00-20.00) Ratio Glucose (70-110) mg/dL POC Glucose (mg/dL) 158 H 157 H 135 H (70-110) mg/dL Calcium (8.7-10.3) mg/dL 01/02/24 01/02/24 01/02/24 Range/Units 08:31 08:31 11:22 RBC 2.81 L (4.10-5.20) X 10*6/uL Hgb 8.1 L (12.0-15.0) g/dL Hct 26.8 L (37.2-46.3) % MCHC 30.2 L (32.0-37.0) g/dL RDW 15.8 H (11.5-14.5) % NRBC/100 WBC Diff 0.02 H (0.00-0.01) X 10*3/uL Potassium 3.4 L (3.5-5.5) mmol/L Chloride 110 H (96-109) mmol/L Carbon Dioxide 18.9 L (21.6-31.8) mmol/L BUN <3.5 L (9.0-27.0) mg/dL Creatinine 0.5 L (0.6-1.5) mg/dL BUN/Creatinine Ratio <7.00 L (12.00-20.00) Ratio Glucose 135 H (70-110) mg/dL POC Glucose (mg/dL) 163 H (70-110) mg/dL Calcium 7.8 L (8.7-10.3) mg/dL Microbiology - Last 24 Hours (Table) 12/31/23 10:00 Gram Stain - Preliminary Other - Other Wound Culture - Preliminary Presumptive MRSA 12/31/23 07:55 Blood Culture - Preliminary Blood 12/29/23 17:10 Blood Culture Gram Stain - Final Blood Blood Culture - Final Methicillin resist S. aureus 12/29/23 17:00 Blood Culture Gram Stain - Final Blood Blood Culture - Final Methicillin resist S. aureus Assessment and Plan (1) Infection due to Port-A-Cath Current Visit: Yes Status: Acute Code(s): T80.219A - UNSP INFECTION DUE TO CENTRAL VENOUS CATHETER, INIT ENCNTR SNOMED Code(s): 638994437 (2) MRSA bacteremia Current Visit: Yes Status: Acute Code(s): R78.81 - BACTEREMIA; B95.62 - METHICILLIN RESIS STAPH INFCT CAUSING DISEASES CLASSD ELSWHR SNOMED Code(s): 74369061425487070 Plan: 1patient presented to hospital with sepsis in this patient who did have a fever tachycardia source is likely Mediport infection hide this patient with evidence of MRSA bacteremia patient also have respiratory symptoms and chest x-ray showing evidence of pneumonia could be related to the MRSA 2-we will try to obtain sputum for culture and culture check a CRP and a procalcitonin level 3-patient is status post removal of Admcky-p-Dvam by vascular surgery on 12/31/2023 4-blood cultures 12/31/2023 so far negative 5-patient to continue with vancomycin pharmacy to dose target trough of 15 while watching kidney function and Vanco trough closely, PICC line when she clear her bacteremia multiple question concern answered Dictation was produced using [employer] dictation software. please excuse any grammatical, word or spelling errors. Time with Patient: Less than 30
--- NOTE | 2024-01-02 12:40 | P.PN ---
Subjective Progress Note Date: 01/02/24 Principal diagnosis: Infected Mediport Patient was seen and examined today as a follow-up. She had Mediport explantation done on 12/31/2023. States her chest wall is a little tender. She has a dressing in place. She is afebrile. No other acute changes. Objective - Vital Signs Vital signs: Vital Signs Temp 98.7 F 01/02/24 07:02 Pulse 79 01/02/24 07:02 Resp 18 01/02/24 07:02 BP 123/82 01/02/24 07:02 Pulse Ox 97 01/02/24 07:02 FiO2 Intake & Output 01/01/24 01/02/24 01/02/24 18:59 06:59 18:59 Intake Total 1969 Balance 1969 Intake: Intake, IV Titration 1170 Amount Sodium Chloride 0.9% 1, 1170 000 ml @ 130 mls/hr IV . Q7H42M [facility] Rx#:[id number] Oral 800 Other: # Voids 4 4 - Exam General appearance: The patient is alert, oriented, appears in no acute distress. Obese HET: Head is normocephalic and atraumatic. Pupils are equal and reactive. Neck: Supple. Chest: Left upper chest wall incision well-approximated with sutures with iodoform packing in place no surrounding erythema, tender to palpation. Abdomen: Soft, nondistended. Extremities: Normal skin color and turgor. Neurological: No focal deficits. Alert and oriented - Labs CBC & Chem 7: 01/02/24 08:31 01/02/24 08:31 Labs: Abnormal Lab Results - Last 24 Hours (Table) 01/01/24 01/01/24 01/01/24 Range/Units 06:23 11:31 16:28 RBC 2.78 L (4.10-5.20) X 10*6/uL Hgb 8.0 L (12.0-15.0) g/dL Hct 25.0 L (37.2-46.3) % RDW 15.6 H (11.5-14.5) % NRBC/100 WBC Diff 0.03 H (0.00-0.01) X 10*3/uL POC Glucose (mg/dL) 194 H 158 H (70-110) mg/dL 01/01/24 01/02/24 Range/Units 19:43 05:44 RBC (4.10-5.20) X 10*6/uL Hgb (12.0-15.0) g/dL Hct (37.2-46.3) % RDW (11.5-14.5) % NRBC/100 WBC Diff (0.00-0.01) X 10*3/uL POC Glucose (mg/dL) 157 H 135 H (70-110) mg/dL Microbiology - Last 24 Hours (Table) 12/31/23 10:00 Gram Stain - Preliminary Other - Other Wound Culture - Preliminary Presumptive MRSA 12/31/23 07:55 Blood Culture - Preliminary Blood 12/29/23 17:10 Blood Culture Gram Stain - Final Blood Blood Culture - Final Methicillin resist S. aureus 12/29/23 17:00 Blood Culture Gram Stain - Final Blood Blood Culture - Final Methicillin resist S. aureus Assessment and Plan Assessment: 1. Infected Port-A-Cath 2. Bacteremia Plan: Dressing changed today and incision packed with iodoform. Change daily. Will await repeat blood cultures for bacteremia to clear prior to placing PICC line for discharge. Thank you for this consultation, we will continue to follow. The impression and plan of care has been dictated as directed. I performed a history and examination of this patient, discussed the same with the dictator. I agree with the dictator's note ,documented as a scribe. Any additional findings or plans will be noted.
[2024-01-02] MEDS: guaiFENesin-Coden 100-10MG/5ML 10 ML CUP PO PRN (12:41)
--- NOTE | 2024-01-02 13:21 | P.CRDCN ---
History of Present Illness History of present illness: HISTORY OF PRESENT ILLNESS: This is a 43-year-old female with a past medical history significant for mitochondrial disorder, PFO, CVA, DVT, hyperlipidemia, dysautonomia, and PFO. Patient follows in the office with Dr. Vela but has not been seen since 2020. We have been asked to see the patient in consultation for GERSON. Patient examined at the bedside. Patient states she presented to the hospital with a chief complaint of a fever. She states she initially started to have a fever about a week ago. Patient was found to have an infected Port-A-Cath which was removed on 12/31/2023. Patient's blood cultures are positive for MRSA. Patient currently denies any chest pain or pressure. She denies any shortness of breath. She states that she had a Port-A-Cath in place secondary to IV daily hydration requirements and Zofran administration. Patient also has a history of a PFO. She states that she was evaluated at to tertiary care centers and was found to be too high risk for closure. -EKG on admission revealed sinus mechanism with T wave inversions in lead 3, aVF, V2V6 -Most recent echocardiogram performed in May 2020 revealed ejection fraction 55 to 60% REVIEW OF SYSTEMS: At the time of my exam: CONSTITUTIONAL: Denies fever or chills. HEENT: Denies blurred vision, vision changes, or eye pain. Denies hemoptysis CARDIOVASCULAR: Denies chest pain. Denies orthopnea. Denies PND. Denies palpitations RESPIRATORY: Denies shortness of breath. GASTROINTESTINAL: Denies abdominal pain. Denies nausea or vomiting. HEMATOLOGIC: Denies bleeding disorders. GENITOURINARY: Denies any blood in urine. SKIN: Denies pruitis. Denies rash. PHYSICAL EXAM: VITAL SIGNS: Reviewed. GENERAL: Well-developed in no acute distress. HEENT: Head is normocephalic. Pupils are equal, round. Sclerae anicteric. Mucous membranes of the mouth are moist. Neck supple. No JVD or thyromegaly LUNGS: Respirations even and unlabored. Lungs essentially clear to auscultation bilaterally. HEART: Regular rate and rhythm. S1 and S2 heard. ABDOMEN: Soft. Nondistended. Nontender. EXTREMITIES: Normal range of motion. No clubbing or cyanosis. Peripheral pulses intact. No lower extremity edema NEUROLOGIC: Awake and alert. Oriented x 3. SKIN: Dressing noted to left chest ASSESSMENT: MRSA bacteremia Status post removal of Port-A-Cath, 12/31/2023 Multifocal pneumonia with possible septic emboli, per CT chest History of mitochondrial disorder History of dysautonomia History of PFO, found to be too high risk for closure per patient History of CVA History of DVT History of hypertension History of hyperlipidemia Diabetes PLAN: Continue current cardiac medications NPO Patient to undergo GERSON today with Dr. Vela Further recommendations pending patient course Nurse practitioner note has been reviewed by physician. Signing provider agrees with the documented findings, assessment, and plan of care documented by [employer] as a scribe. 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 Lymphedema left arm due to DVT s, avoid use of left arm for BP, IV, blood draws. Hx Vtach, pituitary microadenoma, patent foramen ovale, narcolepsy, gastropareis, hx orthostatic hypotension/syncope, migraines with hemiplegia, pernicious anemia, polycystic ovarian syndrome, neuropathy bilateral legs/feet/arms, uses wheelchair, able to transfer and walk few steps. CPAP use. Lupus anticoagulation syndrome. Enlarged liver. History of Any Multi-Drug Resistant Organisms: ESBL, MRSA Date of last positivie culture/infection: 12/29/23 MRSA; 12/20/22 ESBL E.coli MDRO Source:: Blood-MRSA; Urine-ESBL Past Surgical History: Cholecystectomy, Uterine Ablation Additional Past Surgical History / Comment(s): Colonscopy/EGD, GERSON, PORT-A-CATH INSERTION X3, PICC line insertion and later removed. Past Anesthesia/Blood Transfusion Reactions: Previous Problems w/ Anesthesia, Motion Sickness Additional Past Anesthesia/Blood Transfusion Reaction / Comment(s): Patient sta mk difficult to sedate. Hx blood transfusions with no issues. Past Psychological History: Anxiety, Bipolar, Depression, PTSD Additional Psychological History / Comment(s): Autism spectrum Smoking Status: Never smoker Past Alcohol Use History: Rare Additional Past Alcohol Use History / Comment(s): . Past Drug Use History: None Reported - Past Family History Brother(s) Family Medical History: Diabetes Mellitus, Hyperlipidemia, Hypertension Additional Family Medical History / Comment(s): Patient states she has 1 brother with no major medical problems. Father History Unknown: Yes Family Medical History: Diabetes Mellitus, Hyperlipidemia, Hypertension Mother Family Medical History: CVA/TIA, Diabetes Mellitus, Deep Vein Thrombosis (DVT) Additional Family Medical History / Comment(s): Antiphospholipid antibody syndrome, Lupus, dementia. Multiple DVT's and Strokes. Medications and Allergies Home Medications Medication Instructions Recorded Confirmed Type Levothyroxine Sodium [Synthroid] 100 mcg PO DAILY 01/16/19 12/29/23 History Methenamine Hippurate 1 gm PO BID 07/12/19 12/29/23 History Mirabegron [Myrbetriq] 25 mg PO DAILY 10/08/19 12/29/23 History Fenofibrate [Lofibra] 160 mg PO HS tab 10/17/19 12/29/23 Rx Rivaroxaban [Xarelto] 20 mg PO HS tab 10/17/19 12/29/23 Rx Promethazine [Phenergan] 25 mg PO TID PRN 11/30/19 12/29/23 History Levothyroxine Sodium [Synthroid] 125 mcg PO MOTUWETH 12/28/19 12/29/23 History Albuterol Inhaler [Ventolin Hfa 2 puff INHALATION RT-Q4H PRN 09/19/20 12/29/23 History Inhaler] Dexlansoprazole [Dexilant] 60 mg PO DAILY 09/19/20 12/29/23 History Galcanezumab-Gnlm [Emgality Pen] 120 mg SQ Q30D 09/19/20 12/29/23 History Cyanocobalamin (Vitamin B-12) 1,000 mcg PO DAILY 06/01/21 12/29/23 History [Vitamin B-12] Ezetimibe [Zetia] 10 mg PO HS 06/01/21 12/29/23 History busPIRone HCL [Buspar] 30 mg PO BID 06/01/21 12/29/23 History Baclofen [Lioresal] 20 mg PO QID 06/02/21 12/29/23 History Fluticasone/Vilanterol [Breo 1 puff INHALATION RT-DAILY 09/27/21 12/29/23 History Ellipta 100-25 Mcg Inhaler] Ondansetron Odt [Zofran ODT] 8 mg PO TID PRN 09/27/21 12/29/23 History polyethylene glycoL 3350 [Miralax] 17 gm PO DAILY PRN 09/27/21 12/29/23 History Fluticasone Nasal [place] [Flonase 2 spr EA NOSTRIL BID 04/26/22 12/29/23 History Nasal [place]] Blawnox Carbonate [Blawnox 300 mg PO DAILY 04/26/22 12/29/23 History Carbonate ER] traZODone HCL 200 mg PO HS 04/26/22 12/29/23 History Dicyclomine HCl 20 mg PO Q6H PRN 06/23/22 12/29/23 History Prochlorperazine [Compro] 25 mg RECTAL Q8H PRN 06/23/22 12/29/23 History Rimegepant Sulfate [Nurtec Odt] 75 mg PO DAILY PRN 06/23/22 12/29/23 History cloNIDine HCL [Kapvay] 0.2 mg PO DAILY 06/23/22 12/29/23 History Pioglitazone [Actos] 45 mg PO DAILY 10/07/22 12/29/23 History Semaglutide [Ozempic] 2 mg SQ TU 10/07/22 12/29/23 History cloNIDine HCL [Kapvay] 0.1 mg PO HS 10/07/22 12/29/23 History glipiZIDE 10 mg PO AC-BRKFST PRN 10/07/22 12/29/23 History sitaGLIPtin [Januvia] 100 mg PO DAILY 10/07/22 12/29/23 History Famotidine 40 mg PO HS 11/07/22 12/29/23 History Metoprolol Succinate (ER) [Toprol 100 mg PO DAILY 11/07/22 12/29/23 History XL] Phenazopyridine HCl [Uristat Ultra] 99.5 mg PO DAILY PRN 11/07/22 12/29/23 Hist ory cloNIDine HCL [Catapres] 0.1 mg PO HS 12/15/22 12/29/23 History diazePAM [Valium] 5 mg PO DAILY PRN 02/18/23 12/29/23 History Meloxicam [Mobic] 15 mg PO DAILY 03/15/23 12/29/23 History modafiniL [Provigil] 400 mg PO DAILY 03/15/23 12/29/23 History Butalbital/Aspirin/Caffeine 1 tab PO TID PRN 04/12/23 12/29/23 History [Lycuyl-Nnyevxq-Qqnimvat 50-325-40 mg] Diclofenac Sodium Gel [Voltaren 1% 4 gm TOPICAL QID PRN 04/12/23 12/29/23 History Gel] Latanoprost [Latanoprost 0.005%] 1 drop BOTH EYES HS 04/12/23 12/29/23 History Sodium Chloride 0.9% Solution 2,000 ml IV DAILY 04/12/23 12/29/23 History Triamcinolone 0.5% Cream [Kenalog 1 applic TOPICAL BID PRN 04/12/23 12/29/23 History 0.5% Cream] Trimethoprim [Trimpex] 100 mg PO DAILY 04/12/23 12/29/23 History Brexpiprazole [Rexulti] 2 mg PO BID 06/13/23 12/29/23 History Lactulose 10 - 20 gm PO BID PRN 06/13/23 12/29/23 History Sucralfate [Carafate] 1 gm PO TID-W/MEALS PRN 06/13/23 12/29/23 History Ammonium Lactate Lotion 1 applic TOPICAL DAILY 10/17/23 12/29/23 History [Lac-Hydrin 12% Lotion] Dexmethylphenidate HCl [Focalin Xr] 10 mg PO DAILY 10/17/23 12/29/23 History Gabapentin 600 mg PO TID 10/17/23 12/29/23 History Glycopyrrolate [Robinul Forte] 2 mg PO TID 10/17/23 12/29/23 History Ketoconazole 2% Shampoo [Nizoral] 1 applic TOPICAL SUWE 10/17/23 12/29/23 History Linaclotide [Linzess] 72 mcg PO DAILY 10/17/23 12/29/23 History Loratadine [Claritin] 10 mg PO DAILY 10/17/23 12/29/23 History Mag Hydrox/Al Hydrox/Simeth 30 ml PO QID PRN 10/17/23 12/29/23 History [Maalox] Metoclopramide [Reglan] 10 mg PO ACHS PRN 10/17/23 12/29/23 History Jgd-Fzlo-Tjxso Acid 1 cap PO W/BRKFST 10/17/23 12/29/23 History [-U Capsule (formulary)] Rizatriptan Benzoate [Rizatriptan] 5 mg PO BID PRN 10/17/23 12/29/23 History Silver Sulfadiazine [Silver 1 applic TOPICAL BID PRN 10/17/23 12/29/23 History Sulfadiazine 1%] fluvoxaMINE MALEATE [Luvox] 50 mg PO HS 10/17/23 12/29/23 History predniSONE 5 mg PO W/BRKFST 10/17/23 12/29/23 History Cefdinir [Omnicef] 300 mg PO Q12HR 12/29/23 12/29/23 History Blawnox Carbonate [Blawnox 600 mg PO HS 12/29/23 12/29/23 History Carbonate ER] methylPREDNISolone Dose Pack See Taper PO DIRECTED 12/29/23 12/29/23 History [Medrol Dose Pack] oxyCODONE HCL [OxyIR] 5 mg PO Q6H 12/29/23 12/29/23 History Allergies Allergy/AdvReac Type Severity Reaction Status Date / Time peanut oil Allergy Severe Nausea & Verified 12/29/23 21:58 Vomiting,itching barium sulfate Allergy Anaphylaxis Verified 12/29/23 21:58 doxepin [Doxepin] Allergy Anaphylaxis Verified 12/29/23 21:58 ephedrine Allergy Chest Verified 12/29/23 21:58 Pain/tachycardia ertapenem [From Invanz] Allergy Rash/Hives- Verified 12/29/23 21:58 like a chemical burn peanut Allergy Anaphylaxis Verified 12/29/23 21:58 pseudoephedrine Allergy Chest Pain Verified 12/29/23 21:58 Sulfa (Sulfonamide Allergy Nausea & Verified 12/29/23 21:58 Antibiotics) Vomiting, DEHYDRATION sumatriptan [From Imitrex] Allergy affects Verified 12/29/23 21:58 vision-unable to see for hrs. doxycycline AdvReac Nausea & Verified 12/29/23 21:58 Vomiting & Diarrhea pseudoephedrine HCl AdvReac chest Verified 12/29/23 21:58 [From Sudafed] pain/tachycardia sulfamethoxazole AdvReac Nausea & Verified 12/29/23 21:58 [From Bactrim] Vomiting Adhesive Tape AdvReac Rash/Hives Uncoded 12/29/23 15:40 Physical Exam Vitals: Vital Signs Temp Pulse Pulse Resp BP Pulse Ox 01/02/24 11:56 80 01/02/24 11:44 80 01/02/24 08:00 79 18 01/02/24 07:02 98.7 F 79 18 123/82 97 01/02/24 03:43 84 01/02/24 03:30 80 01/02/24 00:45 98.5 F 74 18 113/67 98 01/01/24 20:33 80 01/01/24 20:21 80 01/01/24 18:50 98.9 F 82 18 122/83 96 Intake and Output 01/01/24 01/02/24 01/02/24 22:59 06:59 14:59 Intake Total 1970 Balance 1969 Intake: Intake, IV Titration 1170 Amount Sodium Chloride 0.9% 1, 1170 000 ml @ 130 mls/hr IV . Q7H42M [facility] Rx#:[id number] Oral 800 Other: Voiding Method Bedside Commode # Voids 4 4 Results 01/02/24 08:31 01/02/24 08:31 CBC 01/02/24 Range/Units 08:31 WBC 9.58 (4.50-10.00) X 10*3/uL RBC 2.81 L (4.10-5.20) X 10*6/uL Hgb 8.1 L (12.0-15.0) g/dL Hct 26.8 L (37.2-46.3) % Plt Count 382 (140-440) X 10*3/uL Comprehensive Metabolic Panel 01/02/24 Range/Units 08:31 Sodium 140 (135-145) mmol/L Potassium 3.4 L (3.5-5.5) mmol/L Chloride 110 H (96-109) mmol/L Carbon Dioxide 18.9 L (21.6-31.8) mmol/L BUN <3.5 L (9.0-27.0) mg/dL Creatinine 0.5 L (0.6-1.5) mg/dL Glucose 135 H (70-110) mg/dL Calcium 7.8 L (8.7-10.3) mg/dL Current Medications Generic Name Dose Route Start Last Admin Trade Name Freq PRN Reason Stop Dose Admin Acetaminophen 650 mg 12/29/23 21:28 12/31/23 05:31 Acetaminophen Tab 325 Mg Tab PO 650 mg Q6HR PRN Administration Mild Pain or Fever > 100.5 Hydrocodone Bitart/Acetaminophen 1 each 12/29/23 21:28 12/30/23 02:29 Hydrocodone/Apap 5-325mg 1 Each Tab PO 1 each Q4HR PRN Administration Moderate Pain (Scale 4 to 6) Albuterol Sulfate 2.5 mg 12/30/23 01:01 01/02/24 11:44 Albuterol Nebulized 2.5 Mg/3 Ml INHALATION 2.5 mg RT-Q4H PRN Administration Shortness Of Breath Aspirin 81 mg 01/03/24 09:00 Aspirin 81 Mg PO DAILY JOSE Atorvastatin Calcium 20 mg 01/02/24 21:00 Atorvastatin 20 Mg Tab PO HS JOSE Baclofen 20 mg 12/31/23 09:00 01/02/24 11:35 Baclofen 10 Mg Tab PO 20 mg QID JOSE Administration Budesonide/Formoterol Fumarate 2 puff 12/30/23 08:00 01/02/24 08:52 Symbicort 80-4.5 Mcg Inhaler INHALATION Not Given RT-BID JOSE Buspirone HCl 30 mg 12/30/23 21:00 01/02/24 09:11 Buspirone Hcl 10 Mg Tab PO 30 mg BID JOSE Administration Clonidine 0.1 mg 12/30/23 21:00 01/01/24 20:58 Clonidine Hcl 0.1 Mg Tab PO 0.1 mg HS JOSE Administration Dextrose/Water 25 ml 12/30/23 01:14 Dextrose 50% Syringe 50 Ml IVP PER PROTOCOL PRN Hypoglycemia Protocol Dextrose/Water 50 ml 12/30/23 01:14 Dextrose 50% Syringe 50 Ml IVP PER PROTOCOL PRN Hypoglycemia Protocol Ezetimibe 10 mg 12/30/23 21:00 01/01/24 20:58 Ezetimibe 10 Mg Tab PO 10 mg HS JOSE Administration Famotidine 40 mg 12/30/23 21:00 01/01/24 20:58 Famotidine 20 Mg Tab PO 40 mg HS JOSE Administration Fenofibrate 160 mg 12/30/23 21:00 01/01/24 20:58 Fenofibrate 160 Mg Tab PO 160 mg HS JOSE Administration Fluvoxamine Maleate 50 mg 12/30/23 21:00 01/01/24 20:59 Fluvoxamine 50 Mg Tab PO 50 mg HS JOSE Administration Gabapentin 600 mg 12/30/23 16:00 01/02/24 09:10 Gabapentin 300 Mg Cap PO 600 mg TID JOSE Administration Guaifenesin/Codeine Phosphate 10 ml 01/02/24 10:08 01/02/24 12:41 Guaifenesin-Coden 100-10mg/5ml 10 Ml Cup PO 10 ml Q6HR PRN Administration Cough Sodium Chloride 1,000 mls @ 130 mls/hr 12/29/23 21:30 01/02/24 03:30 Saline 0.9% IV Not Given .Q7H42M [facility] Vancomycin HCl 1,500 mg/ 500 mls @ 167 mls/hr 01/02/24 19:00 Sodium Chloride IVPB Q8H [facility] Ibuprofen 400 mg 12/29/23 21:28 12/31/23 02:27 Ibuprofen 400 Mg Tab PO 400 mg Q6HR PRN Administration Mild Pain or Fever > 100.5 Insulin Aspart 0 unit 12/30/23 07:30 01/02/24 11:35 Insulin Aspart (Novolog) 100 Unit/Ml Vial SQ 3 unit ACHS [facility] Administration Protocol Insulin Detemir 5 unit 12/31/23 21:00 01/01/24 21:00 Insulin Detemir (Levemir) 100 Unit/Ml Syr SQ 5 unit HS [facility] Administration Lactobacillus Acidophilus 1 each 12/31/23 17:15 01/02/24 09:10 Lactobacillus Acidophilus/Pect 1 Each Capsule PO 1 each TID [facility] Administration Lactulose 20 gm 12/31/23 08:22 Lactulose 20 Gm/30 Ml Cup PO BID PRN Constipation Levothyroxine Sodium 100 mcg 12/30/23 06:30 01/02/24 06:36 Levothyroxine 100 Mcg Tab PO 100 mcg DAILY@0630 JOSE Administration Levothyroxine Sodium 125 mcg 01/02/24 06:30 01/02/24 06:36 Levothyroxine 125 Mcg Tab PO 125 mcg MoTuWeTh@0630 [facility] Administration Linagliptin 5 mg 12/31/23 09:00 01/02/24 09:10 Linagliptin 5 Mg Tablet PO 5 mg DAILY JOSE Administration Blawnox Carbonate 300 mg 12/31/23 09:00 01/02/24 09:11 Blawnox Carbonate 300 Mg Cap PO 300 mg TID JOSE Administration Metoclopramide HCl 10 mg 12/31/23 08:22 01/02/24 05:41 Metoclopramide 10 Mg Tab PO 10 mg ACHS PRN Administration Nausea Metoprolol Succinate 100 mg 12/30/23 09:00 01/02/24 09:11 Metoprolol Succinate (Er) 100 Mg Tab.Er.24h PO 100 mg DAILY JOSE Administration Miscellaneous Information 1 each 12/29/23 19:33 Pneumonia Protocol Utilized 1 Each Misc PO ONCE PRN Per Protocol Modafinil 400 mg 12/31/23 09:00 01/01/24 09:44 Modafinil 200 Mg Tab PO 400 mg DAILY JOSE Administration Naloxone HCl 0.2 mg 12/29/23 21:28 Naloxone 0.4 Mg/Ml 1 Ml Vial IV Q2M PRN Opioid Reversal Clonidine Hcl [ 0.2 mg 12/30/23 13:00 01/02/24 09:08 Kapvay] *E.R.* 0.1 PO 0.2 mg Mg Tablet DAILY JOSE Administration Clonidine Hcl [ 0.1 mg 12/30/23 21:00 01/01/24 20:59 Kapvay] *E.R.* 0.1 PO 0.1 mg Mg Tablet HS JOSE Administration Brexpiprazole [ 2 mg 12/30/23 21:00 01/02/24 10:45 Rexulti] 2 Mg Tablet PO Not Given BID JOSE Butalbital/Aspirin/ 1 tab 12/31/23 08:22 Caffeine [Butalb- PO Aspirin-Caffeine 50- TID PRN 325-40 Mg] 1 E Migraine Headache Dexmethylphenidate 10 mg 12/31/23 09:00 01/02/24 10:45 Hcl [Focalin Xr] 10 PO Not Given Mg Cpbp.50.50) DAILY JOSE Linaclotide [Linzess 72 mcg 12/31/23 09:00 01/02/24 10:46 ] 72 Mcg Capsule PO Not Given DAILY JOSE Methenamine 1 gm 12/31/23 09:00 01/02/24 09:07 Hippurate [ PO 1 gm Methenamine BID JOSE Administration Hippurate] 1 Gm Tablet Mirabegron [ 25 mg 12/31/23 09:00 01/02/24 09:10 Myrbetriq] 25 Mg Tab PO 25 mg .Er.24h DAILY JOSE Administration Rimegepant Sulfate [ 75 mg 12/31/23 08:22 Nurtec Odt] 75 Mg PO Tablet DAILY PRN Migraine Headache Ondansetron HCl 4 mg 12/29/23 21:28 01/02/24 11:35 Ondansetron 4 Mg/2 Ml Vial IVP 4 mg Q8HR PRN Administration Nausea And Vomiting Oxycodone HCl 5 mg 12/31/23 09:00 01/02/24 09:10 Oxycodone Hcl 5 Mg Tab PO 5 mg Q6H JOSE Administration Pantoprazole Sodium 40 mg 12/31/23 09:00 01/02/24 06:36 Pantoprazole 40 Mg Tablet PO 40 mg AC-BRKFST JOSE Administration Prednisone 5 mg 12/31/23 07:30 01/02/24 06:36 Prednisone 5 Mg Tab PO 5 mg W/BRKFST JOSE Administration Rivaroxaban 20 mg 01/01/24 18:00 01/01/24 17:05 Rivaroxaban 20 Mg Tab PO 20 mg W/SUPPER JOSE Administration Protocol Trazodone HCl 200 mg 12/31/23 21:00 01/01/24 20:58 Trazodone Hcl 100 Mg Tab PO 200 mg HS JOSE Administration Intake and Output 01/01/24 01/02/24 01/02/24 22:59 06:59 14:59 Intake Total 1970 Balance 1969 Intake: Intake, IV Titration 1170 Amount Sodium Chloride 0.9% 1, 1170 000 ml @ 130 mls/hr IV . Q7H42M [facility] Rx#:[id number] Oral 800 Other: Voiding Method Bedside Commode # Voids 4 4 01/02/24 08:31 01/02/24 08:31
--- NOTE | 2024-01-02 14:35 | P.PN ---
Subjective Progress Note Date: 01/02/24 I was asked to evaluate this patient for pneumonia. The patient was hospitalized for staph sepsis, likely MRSA and the patient has positive blood cultures. The patient is morbidly obese with a BMI of 40. She is known to have multiple medical problems and the patient has required a Mediport insertion for hydration as the patient is known to have underlying mitochondrial disorder, hypertension, hyperlipidemia, lupus, Emily's thyroiditis, obstructive sleep apnea, DVT on anticoagulation, chronic anxiety bipolar disorder with history of depression. She had a Mediport that was infected. She was in the emergency department where blood cultures were taken and the patient turned out to have positive Staph aureus and she came back to the hospital for further care. She is currently hospitalized. Denies having any chest pain or hemoptysis. She has some exertional dyspnea. Had a viral panel came back negative. As far as his blood work, the patient has a White cell count of 8 with a hemoglobin 8.4 and a platelet count of 307, sodium is at 139, potassium of 3.4, BUN is afebrile creatinine 0.44 and serum bicarb is at 19. LFTs are normal. The patient had blood cultures obtained on 12/29/2023 a total of 4 sets came back positive for MRSA and another blood culture on 12/25/2023 was also positive for Staph aureus/MRSA. The patient was started on IV antibiotics and the patient is currently on IV vancomycin with pharmacy to dose. Home medications have been resumed. She is currently on oxygen at 4 L with a pulse ox of 92%. Chest x-ray was also abnormal and showed bilateral pulmonary filtrates and consolidation in the right upper lobe zone and right perihilar area and in the left upper zone consistent with multifocal pneumonia. Based on that, the patient was given a CT scan of the chest that showed evidence of bilateral nodular opacities which may reflect septic emboli and the patient also has areas of diffuse airspace disease and consolidation and new pulm vessel congestion pleural effusion consistent with CHF. On 01/01/2024, the patient remains on 4 L of oxygen nasal cannula. Repeat cultures were sent. The patient is having some respiratory distress even at rest. No chest pain. No significant sputum production or hemoptysis. GERSON needs to be done to rule out underlying endocarditis. The Mediport has been removed and the patient remains on vancomycin. Labs from today are all stable with a white cell count of 8 hemoglobin of 8 and a platelet count of 346 and a BUN is at 4 with a creatinine of 0.4 and the sodium level is at 138. No interval worsening in her respiratory status. As mentioned, the patient has multiple areas of consolidation and nodular densities consistent with possibility of septic emboli versus hematogenous right of the bacteria to her lungs. Strongly suspect staphylococcal pneumonia. No reported nausea or emesis. Mental status is stable. No headaches. No seizure activity. The patient is seen today January 02, 2024 in follow-up on the regular medical floor. She is currently sitting up in bed. Awake and alert in no acute distre ss. She is feeling quite weak and fatigued. She is maintaining O2 saturations in the 90s on 4 L/min per nasal cannula. She is afebrile. Hemodynamically stable. Blood cultures are positive for MRSA. [facility] culture is showing presumptive MRSA. White count 9.5. Hemoglobin 8.1. Platelets 382. Sodium 140. Potassium 3.4. Bicarb 20. BUN 3.5. Creatinine 0.5. Glucose 135. Vancomycin trough 22.0. She is continued on vancomycin. Anticoagulated with Xarelto. Objective - Vital Signs Vital signs: Vital Signs Temp 98.7 F 01/02/24 07:02 Pulse 80 01/02/24 11:56 Resp 18 01/02/24 08:00 BP 123/82 01/02/24 07:02 Pulse Ox 97 01/02/24 07:02 FiO2 Intake & Output 01/01/24 01/02/24 01/02/24 18:59 06:59 18:59 Intake Total 1970 Balance 1969 Intake: Intake, IV Titration 1170 Amount Sodium Chloride 0.9% 1, 1170 000 ml @ 130 mls/hr IV . Q7H42M [facility] Rx#:[id number] Oral 800 Other: Voiding Method Bedside Commode # Voids 4 4 - Exam General: 43-year-old female. Nontoxic, no distress and appears stated age. The patient is currently on 4 L of O2 nasal cannula Derm: Skin warm and dry, normal coloration for ethnicity. Head: Atraumatic, normocephalic and symmetric. Eyes: EOMs intact, no lid lag, and anicteric sclera Mouth: no lip lesions, mucus membranes moist Cardiovascular: regular rate and rhythm with normal S1S2, no murmur, positive posterior tibial pulses bilaterally, and cap refill < 2 seconds. Lungs: Respirations even, regular, and unlabored on room air. Lungs CTA bilater ally, no rhonchi, no rales, no wheezing, and no accessory muscle usage. Abdominal: soft, nontender to palpation, no guarding, no appreciable organomegaly Ext: ROM intact. No gross muscle atrophy, no edema, no contractures Neuro: Speech clear, face symmetrical and CN II-XII grossly intact with no noted focal neuro deficits Psych: Alert and oriented x 3. Appropriate affect. - Labs CBC & Chem 7: 01/02/24 08:31 01/02/24 08:31 Labs: Abnormal Lab Results - Last 24 Hours (Table) 01/01/24 01/01/24 01/02/24 Range/Units 16:28 19:43 05:44 RBC (4.10-5.20) X 10*6/uL Hgb (12.0-15.0) g/dL Hct (37.2-46.3) % MCHC (32.0-37.0) g/dL RDW (11.5-14.5) % NRBC/100 WBC Diff (0.00-0.01) X 10*3/uL Potassium (3.5-5.5) mmol/L Chloride (96-109) mmol/L Carbon Dioxide (21.6-31.8) mmol/L BUN (9.0-27.0) mg/dL Creatinine (0.6-1.5) mg/dL BUN/Creatinine Ratio (12.00-20.00) Ratio Glucose (70-110) mg/dL POC Glucose (mg/dL) 158 H 157 H 135 H (70-110) mg/dL Calcium (8.7-10.3) mg/dL 01/02/24 01/02/24 01/02/24 Range/Units 08:31 08:31 11:22 RBC 2.81 L (4.10-5.20) X 10*6/uL Hgb 8.1 L (12.0-15.0) g/dL Hct 26.8 L (37.2-46.3) % MCHC 30.2 L (32.0-37.0) g/dL RDW 15.8 H (11.5-14.5) % NRBC/100 WBC Diff 0.02 H (0.00-0.01) X 10*3/uL Potassium 3.4 L (3.5-5.5) mmol/L Chloride 110 H (96-109) mmol/L Carbon Dioxide 18.9 L (21.6-31.8) mmol/L BUN <3.5 L (9.0-27.0) mg/dL Creatinine 0.5 L (0.6-1.5) mg/dL BUN/Creatinine Ratio <7.00 L (12.00-20.00) Ratio Glucose 135 H (70-110) mg/dL POC Glucose (mg/dL) 163 H (70-110) mg/dL Calcium 7.8 L (8.7-10.3) mg/dL Microbiology - Last 24 Hours (Table) 01/01/24 06:23 Blood Culture - Preliminary Blood 12/31/23 10:00 Gram Stain - Preliminary Other - Other Wound Culture - Preliminary Presumptive MRSA 12/31/23 07:55 Blood Culture - Preliminary Blood Assessment and Plan Assessment: Bilateral pneumonia, most likely staphylococcal pneumonia. The CAT scan of the chest was noted that there were areas of nodular infiltration in addition to areas of consolidation. This obviously raises the concern for septic emboli to the brain. Obviously hematogenous spread to the lungs is also another likely possibility. However, nodular structures will indicate septic emboli. There is also findings consistent with CHF with pulm vessel congestion which obviously raises the concern for infective endocarditis secondary heart failure. Overall respiratory status remains unchanged compared to yesterday. The presentation is highly suspicious for staphylococcal pneumonia/MRSA. Endocarditis needs to be ruled out. Pending GERSON Acute hypoxic respiratory failure currently on 4 L of oxygen by nasal cannula Mediport infection MRSA septicemia currently on vancomycin Mitochondrial metabolic disorder History of CVA Dysautonomia Intracranial hypertension, idiopathic Lupus disorder Emily's thyroiditis Previous history of DVTs History of pituitary microadenoma Patent foramen ovale Narcolepsy Gastroparesis Migraines Pernicious anemia Polycystic ovary syndrome Peripheral neuropathy Difficulty with mobility and the patient needs a wheelchair for mobility Lupus anticoagulant Obstructive sleep apnea Plan: The patient was seen and evaluated Labs and medications reviewed Blood cultures positive for MRSA Mediport site positive for MRSA GERSON pending Continue vancomycin Continue Xarelto We will continue to follow I have personally seen and examined the patient, performed the documentation and the assessment and plan as written. Number of minutes spent on the visit: 10.
[2024-01-02 16:29] LABS: Glucose,Whole Blood 155 mg/dL (70-110)
--- NOTE | 2024-01-02 16:59 | P.PN ---
Subjective Progress Note Date: 01/02/24 Patient is a mitochondrial disorder, paraplegia and is wheelchair-bound, hypertension, dyslipidemia, lupus, thyroiditis?, Tbr-enqjpjt-udjijdzwz diabetes, obstructive sleep apnea on CPAP, multiple other comorbidities who presented to the ER after being found to have positive blood cultures. Patient initially was seen in the ER 4 days prior to admission complaining of fevers and had blood cultures drawn which turned positive for MRSA and she was subsequently asked to come back to the hospital. On arrival to the ER her vitals were remarkable for a pulse of 109. Initial laboratory analysis was remarkable for hemoglobin 9.7, sodium 133, carbon dioxide 18, CRP 37.1. Influenza A/B/RSV/COVID-19 testing was negative. Patient had a chest x-ray which showed right upper lobe opacification. Patient was started on vancomycin. Arrangements were made for admission. Infectious disease and vascular surgery were consulted. She has a Port-A-Cath which was felt to be infected. This was removed on 12/31/2023. She underwent CT chest on 12/30/2023 which demonstrated diffuse airspace disease with possible septic emboli. Patient seen and examined at bedside. She continues to feel bad. She continues to have shortness of breath with any movement and coughing. Her diarrhea is better. She is overall feeling fatigued. Vital signs reviewed General: Ill-appearing, no distress, appears at stated age Cardiovascular: S1S2 reg, no murmur Lungs: Decreased bs bilateral, no rhonchi, no rales, no accessory muscle use Abdominal: Soft, nontender to palpation, no guarding Ext: + gross muscle atrophy b/l LE, no edema b/l lower extremities, no contractures Neuro: CN II-XI grossly intact, + b/l foot drop, gross muscle wasting b/l LE Psych: Alert, oriented, appropriate affect Assessment/Plan: MRSA bacteremia Multifocal pneumonia, possible septic emboli Acute hypoxic respiratory failure Mitochondrial disorder --Infected Hgehol-g-Mkts removed on 12/31/2023 -Pulmonary note reviewed: Continue current plan of care. -Cardiology note reviewed: NPO, GERSON today with Dr. Vela - Await further ID recs -Await GERSON -Continue with vancomycin day #5, follow vancomycin trough and and creatinine regarding toxicity -Follow blood cultures until clear Diabetes -SSI -Hold Actos and semaglutide -Levemir 5 units at night -Tradjenta 5 mg oral daily -A1c 6.8 Hypokalemia Potassium chloride 20 mill equivalents p.o. x 1 Chronic: Hypertension Dyslipidemia DVT? Lupus? Hypothyroidism Depression/anxiety GERD Asthma without exacerbation PAUL with CPAP use Diarrhea, resolved Imaging: None new Data Review: Blood cultures from 12/31 positive for MRSA, blood cultures from 01/01 negative x 24 hours Labs reviewed from today include CBC and basic metabolic profile which are remarkable for hemoglobin 8.1, potassium 3.4, chloride 110, carbon dioxide 18.9 DVT prophylaxis: Xarelto Anticipated discharge date: Pending Clinical Course Anticipated discharge place: Pending Clinical Course This dictation was prepared using [employer] voice recognition software. Though every attempt is made to correct errors during dictation some may still exist. Objective - Vital Signs Vital signs: Vital Signs Temp 98.4 F 01/02/24 14:00 Pulse 76 01/02/24 16:19 Resp 19 01/02/24 14:00 BP 111/76 01/02/24 14:00 Pulse Ox 97 01/02/24 14:00 FiO2 Intake & Output 01/01/24 01/02/24 01/02/24 18:59 06:59 18:59 Intake Total 1970 Balance 1970 Intake: Intake, IV Titration 1170 Amount Sodium Chloride 0.9% 1, 1170 000 ml @ 130 mls/hr IV . Q7H42M [facility] Rx#:[id number] Oral 800 Other: Voiding Method Bedside Commode # Voids 4 4 - Labs CBC & Chem 7: 01/02/24 08:31 01/02/24 08:31 Labs: Abnormal Lab Results - Last 24 Hours (Table) 01/01/24 01/02/24 01/02/24 Range/Units 19:43 05:44 08:31 RBC 2.81 L (4.10-5.20) X 10*6/uL Hgb 8.1 L (12.0-15.0) g/dL Hct 26.8 L (37.2-46.3) % MCHC 30.2 L (32.0-37.0) g/dL RDW 15.8 H (11.5-14.5) % NRBC/100 WBC Diff 0.02 H (0.00-0.01) X 10*3/uL Potassium (3.5-5.5) mmol/L Chloride (96-109) mmol/L Carbon Dioxide (21.6-31.8) mmol/L BUN (9.0-27.0) mg/dL Creatinine (0.6-1.5) mg/dL BUN/Creatinine Ratio (12.00-20.00) Ratio Glucose (70-110) mg/dL POC Glucose (mg/dL) 157 H 135 H (70-110) mg/dL Calcium (8.7-10.3) mg/dL 01/02/24 01/02/24 01/02/24 Range/Units 08:31 11:22 16:28 RBC (4.10-5.20) X 10*6/uL Hgb (12.0-15.0) g/dL Hct (37.2-46.3) % MCHC (32.0-37.0) g/dL RDW (11.5-14.5) % NRBC/100 WBC Diff (0.00-0.01) X 10*3/uL Potassium 3.4 L (3.5-5.5) mmol/L Chloride 110 H (96-109) mmol/L Carbon Dioxide 18.9 L (21.6-31.8) mmol/L BUN <3.5 L (9.0-27.0) mg/dL Creatinine 0.5 L (0.6-1.5) mg/dL BUN/Creatinine Ratio <7.00 L (12.00-20.00) Ratio Glucose 135 H (70-110) mg/dL POC Glucose (mg/dL) 163 H 155 H (70-110) mg/dL Calcium 7.8 L (8.7-10.3) mg/dL Microbiology - Last 24 Hours (Table) 01/01/24 06:23 Blood Culture - Preliminary Blood 12/31/23 10:00 Gram Stain - Preliminary Other - Other Wound Culture - Preliminary Presumptive MRSA 12/31/23 07:55 Blood Culture - Preliminary Blood
[2024-01-02 20:23] LABS: Glucose,Whole Blood 152 mg/dL (70-110)
[2024-01-02] MEDS: VANCOMYCIN TROUGH DUE 1 EACH MISC MISCELLANE ONE (20:42)
[2024-01-02] MEDS: POTASSIUM CHLORIDE ER 20 MEQ TAB.ER PO STA (20:58)
[2024-01-02] MEDS: ATORVASTATIN 20 MG TAB PO SCH (21:00)
[2024-01-02] MEDS: VANCOMYCIN 1,500 MG in SODIUM CHLORIDE 0.9% 500 ML 500 ML IVPB SCH (21:12)
[2024-01-03 05:48] LABS: Glucose,Whole Blood 119 mg/dL (70-110)
[2024-01-03 06:33] LABS: African American GFR (CKD) >90 (>60 ml/min/1.73 sqM); Anion Gap 2 mmol/L; Blood Urea Nitrogen <2 mg/dL (7-17); Calcium 7.9 mg/dL (8.4-10.2); Carbon Dioxide 23 mmol/L (22-30); Chloride 114 mmol/L (98-107); Glucose 123 mg/dL (74-99); Non-African American GFR(CKD) >90 (>60 ml/min/1.73 sqM); Potassium 3.5 mmol/L (3.5-5.1); Sodium 139 mmol/L (137-145)
[2024-01-03] MEDS: BENZOCAINE SPRAY 1 CAN TOPICAL ONE (08:40)
[2024-01-03] MEDS: MIDAZOLAM 2 MG/2 ML VIAL IVP ONE (09:15)
[2024-01-03] MEDS: fentaNYL (PF) 50 MCG/1 ML VIAL IVP ONE (09:15)
[2024-01-03] MEDS: fentaNYL (PF) 50 MCG/ML 2 ML AMP ONE (09:18)
[2024-01-03] MEDS: ASPIRIN 81 MG PO SCH (09:30)
--- NOTE | 2024-01-03 09:55 | P.PN ---
Subjective Progress Note Date: 01/03/24 Principal diagnosis: Infected Mediport No acute changes through the night. Patient afebrile. Going for GERSON. Objective - Vital Signs Vital signs: Vital Signs Temp 98.4 F 01/03/24 07:26 Pulse 74 01/03/24 09:16 Resp 16 01/03/24 09:16 BP 115/74 01/03/24 09:16 Pulse Ox 95 01/03/24 09:16 FiO2 Intake & Output 01/02/24 01/03/24 01/03/24 18:59 06:59 18:59 Intake Total 800 Balance 800 Weight 110.223 kg Intake: Oral 800 Other: Voiding Method Bedside Commode # Voids 5 2 0 - Exam General appearance: The patient is alert, oriented, appears in no acute distress. Obese HET: Head is normocephalic and atraumatic. Pupils are equal and reactive. Neck: Supple. Chest: Left upper chest wall incision well-approximated with sutures with iodoform packing in place no surrounding erythema, tender to palpation. Abdomen: Soft, nondistended. Extremities: Normal skin color and turgor. Neurological: No focal deficits. Alert and oriented - Labs CBC & Chem 7: 01/02/24 08:31 01/03/24 06:00 Labs: Abnormal Lab Results - Last 24 Hours (Table) 01/02/24 01/02/24 01/02/24 Range/Units 08:31 08:31 11:22 RBC 2.81 L (4.10-5.20) X 10*6/uL Hgb 8.1 L (12.0-15.0) g/dL Hct 26.8 L (37.2-46.3) % MCHC 30.2 L (32.0-37.0) g/dL RDW 15.8 H (11.5-14.5) % NRBC/100 WBC Diff 0.02 H (0.00-0.01) X 10*3/uL Potassium 3.4 L (3.5-5.5) mmol/L Chloride 110 H (96-109) mmol/L Carbon Dioxide 18.9 L (21.6-31.8) mmol/L BUN <3.5 L (9.0-27.0) mg/dL Creatinine 0.5 L (0.6-1.5) mg/dL BUN/Creatinine Ratio <7.00 L (12.00-20.00) Ratio Glucose 135 H (70-110) mg/dL POC Glucose (mg/dL) 163 H (70-110) mg/dL Calcium 7.8 L (8.7-10.3) mg/dL 01/02/24 01/02/24 01/03/24 Range/Units 16:28 20:21 05:46 RBC (4.10-5.20) X 10*6/uL Hgb (12.0-15.0) g/dL Hct (37.2-46.3) % MCHC (32.0-37.0) g/dL RDW (11.5-14.5) % NRBC/100 WBC Diff (0.00-0.01) X 10*3/uL Potassium (3.5-5.5) mmol/L Chloride (96-109) mmol/L Carbon Dioxide (21.6-31.8) mmol/L BUN (9.0-27.0) mg/dL Creatinine (0.6-1.5) mg/dL BUN/Creatinine Ratio (.00-.00) Ratio Glucose (70-110) mg/dL POC Glucose (mg/dL) 155 H 152 H 119 H (70-110) mg/dL Calcium (8.7-10.3) mg/dL 01/03/24 Range/Units 06:00 RBC (4.10-5.20) X 10*6/uL Hgb (12.0-15.0) g/dL Hct (37.2-46.3) % MCHC (32.0-37.0) g/dL RDW (11.5-14.5) % NRBC/100 WBC Diff (0.00-0.01) X 10*3/uL Potassium (3.5-5.5) mmol/L Chloride 114 H (96-109) mmol/L Carbon Dioxide (21.6-31.8) mmol/L BUN <2 L (9.0-27.0) mg/dL Creatinine 0.48 L (0.6-1.5) mg/dL BUN/Creatinine Ratio (.00-.00) Ratio Glucose 123 H (70-110) mg/dL POC Glucose (mg/dL) (70-110) mg/dL Calcium 7.9 L (8.7-10.3) mg/dL Microbiology - Last 24 Hours (Table) 12/31/23 10:00 Gram Stain - Final Other - Other Wound Culture - Final Methicillin resist S. aureus 12/31/23 10:00 Anaerobic Culture - Preliminary Other - Other 12/31/23 07:55 Blood Culture - Preliminary Blood 01/01/24 06:23 Blood Culture - Preliminary Blood Assessment and Plan Assessment: 1. Infected Port-A-Cath 2. Bacteremia Plan: 1. Daily dressing change to left chest wall incision with iodoform 2. Will await repeat blood cultures for bacteremia to clear prior to placing PICC line for discharge. Thank you for this consultation, we will continue to follow. The impression and plan of care has been dictated as directed. I performed a history and examination of this patient, discussed the same with the dictator. I agree with the dictator's note ,documented as a scribe. Any additional findings or plans will be noted.
[2024-01-03] MEDS: cloNIDine HCL 0.2 MG TAB PO SCH (10:00)
--- NOTE | 2024-01-03 11:13 | CA ---
Transthoracic Echo Report Name: Francisca Khoury Age: 43 Gender: F : 1980 Exam Date: 01/02/2024 16:34 Exam Location: [place] [facility] Ht (in): 65 Wt (lb): 243 Ordering Physician: Georges Montgomery MD Attending/Referring Phys: Making Department Preparer Dakota Mesa RDCS Procedure CPT: Indications: MRSA bacteremia Cardiac Hx: Technical Quality: Technically difficult study Contrast 1: Definity Total Dose (mL): 2 Contrast 2: Total Dose (mL): MEASUREMENTS (Male / Female) Normal Values 2D ECHO LV Diastolic Diameter PLAX 4.9 cm 4.2 - 5.9 / 3.9 - 5.3 cm LV Systolic Diameter PLAX 3.6 cm IVS Diastolic Thickness 1.0 cm 0.6 - 1.0 / 0.6 - 0.9 cm LVPW Diastolic Thickness 1.4 cm 0.6 - 1.0 / 0.6 - 0.9 cm LV Relative Wall Thickness 0.5 RV Internal Dim ED PLAX 3.3 cm LVOT Diameter 2.1 cm Aortic Root Diameter 2.6 cm LA Systolic Diameter LX 2.6 cm 3.0 - 4.0 / 2.7 - 3.8 cm LV Diastolic Volume MOD 4C 92.7 cm??? LV Systolic Volume MOD 4C 38.5 cm??? LV Ejection Fraction MOD 4C 58.4 % LV Cardiac Index MOD 4C 1785.7 cm???/min???m??? LV Diastolic Length 4C 6.7 cm LV Systolic Length 4C 5.7 cm Ascending Aorta Diameter 3.3 cm DOPPLER AV Peak Velocity 115.3 cm/s AV Peak Gradient 5.3 mmHg AV Mean Velocity 83.8 cm/s AV Mean Gradient 3.3 mmHg AV Velocity Time Integral 25.5 cm LVOT Peak Velocity 96.5 cm/s LVOT Peak Gradient 3.7 mmHg LVOT Velocity Time Integral 21.4 cm LVOT Stroke Volume 71.0 cm??? LVOT Stroke Volume Index 33.0 ml/m??? LVOT Cardiac Index 2342.3 cm???/min???m??? AV Area Cont Eq vti 2.8 cm??? AV Area Cont Eq pk 2.8 cm??? MV Peak Velocity 122.7 cm/s MV Peak Gradient 6.0 mmHg MV Mean Velocity 59.0 cm/s MV Mean Gradient 1.8 mmHg MV Velocity Time Integral 37.0 cm Mitral E Point Velocity 122.5 cm/s Mitral A Point Velocity 100.9 cm/s Mitral E to A Ratio 1.2 MV Deceleration Time 205.1 ms MV E' Velocity 6.6 cm/s Mitral E to MV E' Ratio 18.5 TR Peak Velocity 114.6 cm/s TR Peak Gradient 5.3 mmHg Right Ventricular Systolic Press 10.3 mmHg PV Peak Velocity 100.8 cm/s PV Peak Gradient 4.1 mmHg FINDINGS Left Ventricle Normal LV size mild concentric LVH. . Left ventricular ejection fraction is estimated at 55-60 %. Right Ventricle Normal right ventricular size. Right Atrium Normal right atrial size. Left Atrium Normal left atrial size. Mitral Valve Mitral valve not well visualized. No mitral regurgitation. Aortic Valve Aortic valve not well visualized. Trileaflet aortic valve. No aortic regurgitation. No aortic stenosis. Tricuspid Valve Tricuspid valve not well visualized. Trace TR. Pulmonic Valve Pulmonic valve not well visualized. No pulmonic regurgitation. Pericardium Normal pericardium. Aorta Normal size aortic root and proximal ascending aorta. CONCLUSIONS Mild increased left ventricular wall thickness Left ventricular ejection fraction 55-60% No mitral regurgitation No aortic regurgitation Trace tricuspid regurgitation Previewed by: Dr. Dioni Romo DO (Electronically Signed) Final Date: 03 January 2024 11:12
[2024-01-03 11:45] LABS: HCT 26.1 % (37.2-46.3); HGB 8.2 g/dL (12.0-15.0); MCH 29.3 pg (27.0-32.0); MCHC 31.4 g/dL (32.0-37.0); MCV 93.2 FL (80.0-97.0); Mean Platelet Volume 10.3 FL (9.5-12.2); NRBC Per 100 WBC 0.05 X 10*3/uL (0.00-0.01); Platelet Count 398 X 10*3/uL (140-440); RDW 15.9 % (11.5-14.5); WBC 10.66 X 10*3/uL (4.50-10.00)
[2024-01-03 11:59] LABS: Glucose,Whole Blood 140 mg/dL (70-110)
--- NOTE | 2024-01-03 12:44 | P.PN ---
Subjective Progress Note Date: 01/03/24 Principal diagnosis: Reason for follow-up is infected Uqbllj-z-Iajy and bacteremia Patient is a 43-year-old female with a past medical history significant for diabetes mellitus DVT reflux hypertension hyperlipidemia did have a mitochondrial metabolic disorder in this patient who did have a Mediport for hydration and did have a history of multiple line related sepsis with recent culture done in the ER came back positive for MRSA concerning for port infection. Patient did have a removal of infected Kjgjdc-t-[id number] by vascular surgery on 12/31/2023 On today's evaluation 01/03/2024, Patient is afebrile , patient is currently on 4 L nasal cannula oxygen patient be complaining of shortness of breath on movement, the patient denies any chest pain denies any worsening cough, the patient denies any nausea vomiting did not have any abdominal pain and no diarrhea. Patient white count is 10.66, creatinine 0.48 blood cultures 01/01/2024 so far negative Objective - Vital Signs Vital signs: Vital Signs Temp 98.4 F 01/03/24 07:26 Pulse 76 01/03/24 12:01 Resp 16 01/03/24 09:16 BP 115/74 01/03/24 09:16 Pulse Ox 95 01/03/24 11:51 FiO2 Intake & Output 01/02/24 01/03/24 01/03/24 18:59 06:59 18:59 Intake Total 800 Balance 800 Weight 110.223 kg Intake: Oral 800 Other: Voiding Method Bedside Commode # Voids 5 2 0 - Exam GENERAL DESCRIPTION: Middle-aged female up in bed in no distress RESPIRATORY SYSTEM: Unlabored breathing , decreased breath sounds at bases HEART: S1 S2 regular rate and rhythm , ABDOMEN: Soft , no tenderness EXTREMITIES: No edema feet - Labs CBC & Chem 7: 01/03/24 06:00 01/03/24 06:00 Labs: Abnormal Lab Results - Last 24 Hours (Table) 01/02/24 01/02/24 01/03/24 Range/Units 16:28 20:21 05:46 WBC (4.50-10.00) X 10*3/uL RBC (4.10-5.20) X 10*6/uL Hgb (12.0-15.0) g/dL Hct (37.2-46.3) % MCHC (32.0-37.0) g/dL RDW (11.5-14.5) % NRBC/100 WBC Diff (0.00-0.01) X 10*3/uL Chloride (98-107) mmol/L BUN (7-17) mg/dL Creatinine (0.52-1.04) mg/dL Glucose (74-99) mg/dL POC Glucose (mg/dL) 155 H 152 H 119 H (70-110) mg/dL Calcium (8.4-10.2) mg/dL 01/03/24 01/03/24 01/03/24 Range/Units 06:00 06:00 11:50 WBC 10.66 H (4.50-10.00) X 10*3/uL RBC 2.80 L (4.10-5.20) X 10*6/uL Hgb 8.2 L (12.0-15.0) g/dL Hct 26.1 L (37.2-46.3) % MCHC 31.4 L (32.0-37.0) g/dL RDW 15.9 H (11.5-14.5) % NRBC/100 WBC Diff 0.05 H (0.00-0.01) X 10*3/uL Chloride 114 H (98-107) mmol/L BUN <2 L (7-17) mg/dL Creatinine 0.48 L (0.52-1.04) mg/dL Glucose 123 H (74-99) mg/dL POC Glucose (mg/dL) 140 H (70-110) mg/dL Calcium 7.9 L (8.4-10.2) mg/dL Microbiology - Last 24 Hours (Table) 12/31/23 10:00 Gram Stain - Final Other - Other Wound Culture - Final Methicillin resist S. aureus 12/31/23 10:00 Anaerobic Culture - Preliminary Other - Other 12/31/23 07:55 Blood Culture - Preliminary Blood 01/01/24 06:23 Blood Culture - Preliminary Blood Assessment and Plan (1) Infection due to Port-A-Cath Current Visit: Yes Status: Acute Code(s): T80.219A - UNSP INFECTION DUE TO CENTRAL VENOUS CATHETER, INIT ENCNTR SNOMED Code(s): 540885809 (2) MRSA bacteremia Current Visit: Yes Status: Acute Code(s): R78.81 - BACTEREMIA; B95.62 - METHICILLIN RESIS STAPH INFCT CAUSING DISEASES CLASSD ELSR SNOMED Code(s): 75863387932172453 Plan: 1patient presented to hospital with sepsis in this patient who did have a fever tachycardia source is likely Mediport infection hide this patient with evidence of MRSA bacteremia patient also have respiratory symptoms and chest x-ray showing evidence of pneumonia could be related to the MRSA 2-we will try to obtain sputum for culture and culture check a CRP and a procalcitonin level 3-patient is status post removal of Axrycl-a-Sgcy by vascular surgery on 12/31/19 24 4-blood cultures 12/31/2023 so far negative, the patient did have a GERSON completed this morning results will be followed 5-patient to continue with vancomycin pharmacy to dose target trough of 15 while watching kidney function and Vanco trough closely, Dictation was produced using [employer] dictation software. please excuse any grammatical, word or spelling errors. Time with Patient: Less than 30
--- NOTE | 2024-01-03 14:16 | P.PN ---
Subjective Progress Note Date: 01/03/24 I was asked to evaluate this patient for pneumonia. The patient was hospitalized for staph sepsis, likely MRSA and the patient has positive blood cultures. The patient is morbidly obese with a BMI of 40. She is known to have multiple medical problems and the patient has required a Mediport insertion for hydration as the patient is known to have underlying mitochondrial disorder, hypertension, hyperlipidemia, lupus, Emily's thyroiditis, obstructive sleep apnea, DVT on anticoagulation, chronic anxiety bipolar disorder with history of depression. She had a Mediport that was infected. She was in the emergency department where blood cultures were taken and the patient turned out to have positive Staph aureus and she came back to the hospital for further care. She is currently hospitalized. Denies having any chest pain or hemoptysis. She has some exertional dyspnea. Had a viral panel came back negative. As far as his blood work, the patient has a White cell count of 8 with a hemoglobin 8.4 and a platelet count of 307, sodium is at 139, potassium of 3.4, BUN is afebrile creatinine 0.44 and serum bicarb is at 19. LFTs are normal. The patient had blood cultures obtained on 12/29/2023 a total of 4 sets came back positive for MRSA and another blood culture on 12/25/2023 was also positive for Staph aureus/MRSA. The patient was started on IV antibiotics and the patient is currently on IV vancomycin with pharmacy to dose. Home medications have been resumed. She is currently on oxygen at 4 L with a pulse ox of 92%. Chest x-ray was also abnormal and showed bilateral pulmonary filtrates and consolidation in the right upper lobe zone and right perihilar area and in the left upper zone consistent with multifocal pneumonia. Based on that, the patient was given a CT scan of the chest that showed evidence of bilateral nodular opacities which may reflect septic emboli and the patient also has areas of diffuse airspace disease and consolidation and new pulm vessel congestion pleural effusion consistent with CHF. On 01/01/2024, the patient remains on 4 L of oxygen nasal cannula. Repeat cultures were sent. The patient is having some respiratory distress even at rest. No chest pain. No significant sputum production or hemoptysis. GERSON needs to be done to rule out underlying endocarditis. The Mediport has been removed and the patient remains on vancomycin. Labs from today are all stable with a white cell count of 8 hemoglobin of 8 and a platelet count of 346 and a BUN is at 4 with a creatinine of 0.4 and the sodium level is at 138. No interval worsening in her respiratory status. As mentioned, the patient has multiple areas of consolidation and nodular densities consistent with possibility of septic emboli versus hematogenous right of the bacteria to her lungs. Strongly suspect staphylococcal pneumonia. No reported nausea or emesis. Mental status is stable. No headaches. No seizure activity. The patient is seen today January 02, 2024 in follow-up on the regular medical floor. She is currently sitting up in bed. Awake and alert in no acute distre ss. She is feeling quite weak and fatigued. She is maintaining O2 saturations in the 90s on 4 L/min per nasal cannula. She is afebrile. Hemodynamically stable. Blood cultures are positive for MRSA. Mediport culture is showing presumptive MRSA. White count 9.5. Hemoglobin 8.1. Platelets 382. Sodium 140. Potassium 3.4. Bicarb 20. BUN 3.5. Creatinine 0.5. Glucose 135. Vancomycin trough 22.0. She is continued on vancomycin. Anticoagulated with Xarelto. The patient is seen today January 03, 2024 in follow-up on the regular medical floor. She is currently sitting up in a chair. Awake and alert in no acute distress. She did undergo transesophageal echocardiogram earlier this morning. Tolerated the procedure well. Results are pending. Echocardiogram from yesterday had revealed a preserved left ventricular systolic function with ejection fraction 55 to 60% and no noted vegetation. Blood cultures and Mediport cultures are positive for MRSA. Follow-up blood cultures are pending. Count 10.6. Hemoglobin 8.2. Platelets 398. Sodium 139. Potassium 3.5. Bicarb 23. BUN less than 2. Creatinine 0.48. Glucose 123. Anticoagulated with Xarelto. Continued on vancomycin. Objective - Vital Signs Vital signs: Vital Signs Temp 98.4 F 01/03/24 07:26 Pulse 76 01/03/24 12:01 Resp 16 01/03/24 09:16 BP 115/74 01/03/24 09:16 Pulse Ox 95 01/03/24 11:51 FiO2 Intake & Output 01/02/24 01/03/24 01/03/24 18:59 06:59 18:59 Intake Total 800 120 Balance 800 120 Weight 110.223 kg Intake: Oral 800 120 Other: Voiding Method Bedside Commode # Voids 5 2 0 - Exam General: 43-year-old female. Sitting up in a chair. Nontoxic, no distress and appears stated age. Currently on 4 L of O2 nasal cannula Derm: Skin warm and dry, normal coloration for ethnicity. Head: Atraumatic, normocephalic and symmetric. Eyes: EOMs intact, no lid lag, and anicteric sclera Mouth: no lip lesions, mucus membranes moist Cardiovascular: regular rate and rhythm with normal S1S2, no murmur, positive posterior tibial pulses bilaterally, and cap refill < 2 seconds. Lungs: Respirations even, regular, and unlabored on room air. Lungs CTA bilaterally, no rhonchi, no rales, no wheezing, and no accessory muscle usage. Abdominal: soft, nontender to palpation, no guarding, no appreciable organomegaly Ext: ROM intact. No gross muscle atrophy, no edema, no contractures Neuro: Speech clear, face symmetrical and CN II-XII grossly intact with no noted focal neuro deficits Psych: Alert and oriented x 3. Appropriate affect. - Labs CBC & Chem 7: 01/03/24 06:00 01/03/24 06:00 Labs: Abnormal Lab Results - Last 24 Hours (Table) 01/02/24 01/02/24 01/03/24 Range/Units 16:28 20:21 05:46 WBC (4.50-10.00) X 10*3/uL RBC (4.10-5.20) X 10*6/uL Hgb (12.0-15.0) g/dL Hct (37.2-46.3) % MCHC (32.0-37.0) g/dL RDW (11.5-14.5) % NRBC/100 WBC Diff (0.00-0.01) X 10*3/uL Chloride (98-107) mmol/L BUN (7-17) mg/dL Creatinine (0.52-1.04) mg/dL Glucose (74-99) mg/dL POC Glucose (mg/dL) 155 H 152 H 119 H (70-110) mg/dL Calcium (8.4-10.2) mg/dL 01/03/24 01/03/24 01/03/24 Range/Units 06:00 06:00 11:50 WBC 10.66 H (4.50-10.00) X 10*3/uL RBC 2.80 L (4.10-5.20) X 10*6/uL Hgb 8.2 L (12.0-15.0) g/dL Hct 26.1 L (37.2-46.3) % MCHC 31.4 L (32.0-37.0) g/dL RDW 15.9 H (11.5-14.5) % NRBC/100 WBC Diff 0.05 H (0.00-0.01) X 10*3/uL Chloride 114 H (98-107) mmol/L BUN <2 L (7-17) mg/dL Creatinine 0.48 L (0.52-1.04) mg/dL Glucose 123 H (74-99) mg/dL POC Glucose (mg/dL) 140 H (70-110) mg/dL Calcium 7.9 L (8.4-10.2) mg/dL Microbiology - Last 24 Hours (Table) 01/02/24 08:31 Blood Culture - Preliminary Blood 01/01/24 06:23 Blood Culture - Preliminary Blood 12/31/23 10:00 Gram Stain - Final Other - Other Wound Culture - Final Methicillin resist S. aureus 12/31/23 10:00 Anaerobic Culture - Preliminary Other - Other 12/31/23 07:55 Blood Culture - Preliminary Blood Assessment and Plan Assessment: Bilateral pneumonia, most likely staphylococcal pneumonia. The CAT scan of the chest was noted that there were areas of nodular infiltration in addition to areas of consolidation. This obviously raises the concern for septic emboli to the brain. Obviously hematogenous spread to the lungs is also another likely possibility. However, nodular structures will indicate septic emboli. There is also findings consistent with CHF with pulm vessel congestion which obviously ra ises the concern for infective endocarditis secondary heart failure. Cultures positive for MRSA. Endocarditis needs to be ruled out. GERSON performed today 01/03/2024, results pending Acute hypoxic respiratory failure currently on 4 L of oxygen by nasal cannula Mediport infection secondary to MRSA MRSA septicemia currently on vancomycin Mitochondrial metabolic disorder History of CVA Dysautonomia Intracranial hypertension, idiopathic Lupus disorder Emily's thyroiditis Previous history of DVTs History of pituitary microadenoma Patent foramen ovale Narcolepsy Gastroparesis Migraines Pernicious anemia Polycystic ovary syndrome Peripheral neuropathy Difficulty with mobility and the patient needs a wheelchair for mobility Lupus anticoagulant Obstructive sleep apnea Plan: The patient was seen and evaluated Labs and medications reviewed Blood cultures positive for MRSA [place] site positive for MRSA Echocardiogram results reviewed GERSON results pending Continue vancomycin Titrate down the FiO2 as tolerated We will continue to follow I have personally seen and examined the patient, performed the documentation and the assessment and plan as written. Number of minutes spent on the visit: 10.
--- NOTE | 2024-01-03 16:12 | P.PN ---
Subjective Progress Note Date: 01/03/24 (delayed charting seen at approx 0945) Patient is a mitochondrial disorder, paraplegia and is wheelchair-bound, hypertension, dyslipidemia, lupus, thyroiditis?, Kqa-mbszuxu-djllkyowa diabetes, obstructive sleep apnea on CPAP, multiple other comorbidities who presented to the ER after being found to have positive blood cultures. Patient initially was seen in the ER 4 days prior to admission complaining of fevers and had blood cultures drawn which turned positive for MRSA and she was subsequently asked to come back to the hospital. On arrival to the ER her vitals were remarkable for a pulse of 109. Initial laboratory analysis was remarkable for hemoglobin 9.7, sodium 133, carbon dioxide 18, CRP 37.1. Influenza A/B/RSV/COVID-19 testing was negative. Patient had a chest x-ray which showed right upper lobe opacification. Patient was started on vancomycin. Arrangements were made for admission. Infectious disease and vascular surgery were consulted. She has a Port-A-Cath which was felt to be infected. This was removed on 12/31/2023. She underwent CT chest on 12/30/2023 which demonstrated diffuse airspace disease with possible septic emboli. Cardio was consulted to GERSON. She continues to have significant shortness of breath and cough. She feels very fatigued and winded no additional diarrhea. No other complaints currently. She plans on having a PICC line placed prior to discharge for continued IV nutrition at home. Vital signs reviewed General: Ill-appearing, no distress, appears at stated age Cardiovascular: S1S2 reg, no murmur Lungs: Decreased bs bilateral, no rhonchi, no rales, no accessory muscle use Abdominal: Soft, nontender to palpation, no guarding Ext: + gross muscle atrophy b/l LE, no edema b/l lower extremities, no contractures Neuro: CN II-XI grossly intact, + b/l foot drop, gross muscle wasting b/l LE Psych: Alert, oriented, appropriate affect Assessment/Plan: MRSA bacteremia Multifocal pneumonia, possible septic emboli Acute hypoxic respiratory failure Mitochondrial disorder --Infected Fvxefd-i-Dacj removed on 12/31/2023 -Pulmonary note reviewed: Continue current care plan. -Infectious disease note reviewed: Blood cultures negative from 12/31 so far await GERSON results. -Vascular surgery note reviewed: Daily dressing changes to left wall incision. PICC line once blood cultures cleared. -Await GERSON results from 01/03 -Continue with vancomycin day #6, follow vancomycin trough and and creatinine regarding toxicity -Follow blood cultures until clear, Blood culture from 01/01 negative for 48 hours. Diabetes -SSI -Hold Actos and semaglutide -Levemir 5 units at night -Tradjenta 5 mg oral daily -A1c 6.8 Hypokalemia, resolved Chronic: Hypertension Dyslipidemia DVT? Lupus? Hypothyroidism Depression/anxiety GERD Asthma without exacerbation PAUL with CPAP use Diarrhea, resolved Imaging: None new Data Review: blood cultures from 01/01 negative x 48 hours Labs reviewed from today include CBC and basic metabolic profile which are remarkable for white blood cell count 10.66, hemoglobin 8.2. DVT prophylaxis: Xarelto Anticipated discharge date: Pending Clinical Course Anticipated discharge place: Pending Clinical Course This dictation was prepared using [employer] voice recognition software. Though every attempt is made to correct errors during dictation some may still exist. Objective - Vital Signs Vital signs: Vital Signs Temp 98.9 F 01/03/24 14:00 Pulse 79 01/03/24 14:00 Resp 18 01/03/24 14:00 BP 120/80 01/03/24 14:00 Pulse Ox 96 01/03/24 14:00 FiO2 Intake & Output 01/02/24 01/03/24 01/03/24 18:59 06:59 18:59 Intake Total 800 120 Balance 800 120 Weight 110.223 kg Intake: Oral 800 120 Other: Voiding Method Bedside Commode # Voids 5 2 0 - Labs CBC & Chem 7: 01/03/24 06:00 01/03/24 06:00 Labs: Abnormal Lab Results - Last 24 Hours (Table) 01/02/24 01/02/24 01/03/24 Range/Units 16:28 20:21 05:46 WBC (4.50-10.00) X 10*3/uL RBC (4.10-5.20) X 10*6/uL Hgb (12.0-15.0) g/dL Hct (37.2-46.3) % MCHC (32.0-37.0) g/dL RDW (11.5-14.5) % NRBC/100 WBC Diff (0.00-0.01) X 10*3/uL Chloride (98-107) mmol/L BUN (7-17) mg/dL Creatinine (0.52-1.04) mg/dL Glucose (74-99) mg/dL POC Glucose (mg/dL) 155 H 152 H 119 H (70-110) mg/dL Calcium (8.4-10.2) mg/dL 01/03/24 01/03/24 01/03/24 Range/Units 06:00 06:00 11:50 WBC 10.66 H (4.50-10.00) X 10*3/uL RBC 2.80 L (4.10-5.20) X 10*6/uL Hgb 8.2 L (12.0-15.0) g/dL Hct 26.1 L (37.2-46.3) % MCHC 31.4 L (32.0-37.0) g/dL RDW 15.9 H (11.5-14.5) % NRBC/100 WBC Diff 0.05 H (0.00-0.01) X 10*3/uL Chloride 114 H (98-107) mmol/L BUN <2 L (7-17) mg/dL Creatinine 0.48 L (0.52-1.04) mg/dL Glucose 123 H (74-99) mg/dL POC Glucose (mg/dL) 140 H (70-110) mg/dL Calcium 7.9 L (8.4-10.2) mg/dL Microbiology - Last 24 Hours (Table) 01/02/24 08:31 Blood Culture - Preliminary Blood 01/01/24 06:23 Blood Culture - Preliminary Blood 12/31/23 10:00 Gram Stain - Final Other - Other Wound Culture - Final Methicillin resist S. aureus 12/31/23 10:00 Anaerobic Culture - Preliminary Other - Other 12/31/23 07:55 Blood Culture - Preliminary Blood
[2024-01-03 17:03] LABS: Glucose,Whole Blood 171 mg/dL (70-110)
[2024-01-03 19:53] LABS: Glucose,Whole Blood 160 mg/dL (70-110)
--- NOTE | 2024-01-03 20:42 | P.PCN ---
Date of Procedure: 01/03/24 Operative Findings: Transesophageal echocardiogram Performing physician Marcelo Vela MD Indication Rule out infective endocarditis Complication None Level of sedation Moderate with sedation length of 16 minutes Procedure description After obtaining an informed consent the patient was brought to the [facility] echocardiogram room. The pulse oximetry and heart rate monitors were attached to the patient. Subsequently the patient was turned into left lateral position. Bite guard was placed after the patient's throat was sprayed using lidocaine. Conscious sedation was performed using 2 mg of Versed and 50 mcg of fentanyl on divided doses. The transesophageal echocardiogram was advanced through the bite current the mid esophageal where the echocardiogram images as well as color Doppler images and pulse Doppler and continuous wave Doppler performed. The procedure was completed with no complication Conclusion No evidence of infective endocarditis noted Intact intracardiac valves No evidence of any abscess noted Normal LV systolic function Trace pericardial effusion
[2024-01-04 05:38] LABS: Glucose,Whole Blood 129 mg/dL (70-110)
[2024-01-04 07:50] LABS: African American GFR (CKD) >90 (>60 ml/min/1.73 sqM); Anion Gap 4 mmol/L; Blood Urea Nitrogen <2 mg/dL (7-17); Calcium 8.1 mg/dL (8.4-10.2); Carbon Dioxide 23 mmol/L (22-30); Chloride 113 mmol/L (98-107); Glucose 125 mg/dL (74-99); Non-African American GFR(CKD) >90 (>60 ml/min/1.73 sqM); Potassium 3.6 mmol/L (3.5-5.1); Sodium 140 mmol/L (137-145)
--- NOTE | 2024-01-04 10:49 | P.PN ---
Subjective Progress Note Date: 01/04/24 Principal diagnosis: Infected [place] Patient seen and examined today as a follow-up. Yesterday she underwent GERSON with no evidence of endocarditis. States she has some overall achiness and increased swelling to her lower extremities. IV fluids were decreased. Repeat pulmonary blood cultures coming back with no growth at 48 hours. Patient has been afebrile. Objective - Vital Signs Vital signs: Vital Signs Temp 98.6 F 01/04/24 01:25 Pulse 72 01/04/24 01:25 Resp 18 01/04/24 01:25 BP 132/81 01/04/24 01:25 Pulse Ox 98 01/04/24 01:25 FiO2 Intake & Output 01/03/24 01/04/24 01/04/24 18:59 06:59 18:59 Intake Total 240 Balance 240 Intake: Oral 240 Other: Voiding Method Bedside Commode # Voids 1 2 # Bowel Movements 1 - Exam General appearance: The patient is alert, oriented, appears in no acute distress. Obese HET: Head is normocephalic and atraumatic. Pupils are equal and reactive. Neck: Supple. Chest: Left upper chest wall incision well-approximated with sutures with iodoform packing in place no surrounding erythema, tender to palpation. Abdomen: Soft, nondistended. Extremities: Normal skin color and turgor. Neurological: No focal deficits. Alert and oriented - Labs CBC & Chem 7: 01/03/24 06:00 01/04/24 06:43 Labs: Abnormal Lab Results - Last 24 Hours (Table) 01/03/24 01/03/24 01/03/24 Range/Units 06:00 11:50 16:57 WBC 10.66 H (4.50-10.00) X 10*3/uL RBC 2.80 L (4.10-5.20) X 10*6/uL Hgb 8.2 L (12.0-15.0) g/dL Hct 26.1 L (37.2-46.3) % MCHC 31.4 L (32.0-37.0) g/dL RDW 15.9 H (11.5-14.5) % NRBC/100 WBC Diff 0.05 H (0.00-0.01) X 10*3/uL Chloride (98-107) mmol/L BUN (7-17) mg/dL Creatinine (0.52-1.04) mg/dL Glucose (74-99) mg/dL POC Glucose (mg/dL) 140 H 171 H (70-110) mg/dL Calcium (8.4-10.2) mg/dL 01/03/24 01/04/24 01/04/24 Range/Units 19:52 05:36 06:43 WBC (4.50-10.00) X 10*3/uL RBC (4.10-5.20) X 10*6/uL Hgb (12.0-15.0) g/dL Hct (37.2-46.3) % MCHC (32.0-37.0) g/dL RDW (11.5-14.5) % NRBC/100 WBC Diff (0.00-0.01) X 10*3/uL Chloride 113 H (98-107) mmol/L BUN <2 L (7-17) mg/dL Creatinine 0.48 L (0.52-1.04) mg/dL Glucose 125 H (74-99) mg/dL POC Glucose (mg/dL) 160 H 129 H (70-110) mg/dL Calcium 8.1 L (8.4-10.2) mg/dL Microbiology - Last 24 Hours (Table) 12/31/23 07:55 Blood Culture - Preliminary Blood 01/02/24 08:31 Blood Culture - Preliminary Blood 01/01/24 06:23 Blood Culture - Preliminary Blood Assessment and Plan Assessment: 1. Infected Port-A-Cath 2. Bacteremia Plan: 1. Daily dressing change to left chest wall incision with iodoform 2. Will await repeat blood cultures for bacteremia to clear prior to placing PICC line for discharge. Thank you for this consultation, we will continue to follow. The impression and plan of care has been dictated as directed. Dr. Kumar I performed a history and examination of this patient, discussed the same with the dictator. I agree with the dictator's note ,documented as a scribe. Any additional findings or plans will be noted.
[2024-01-04 11:04] LABS: HCT 28.4 % (37.2-46.3); HGB 8.4 g/dL (12.0-15.0); MCH 28.2 pg (27.0-32.0); MCHC 29.6 g/dL (32.0-37.0); MCV 95.3 FL (80.0-97.0); Mean Platelet Volume 9.7 FL (9.5-12.2); NRBC Per 100 WBC 0.03 X 10*3/uL (0.00-0.01); Platelet Count 390 X 10*3/uL (140-440); RBC 2.98 X 10*6/uL (4.10-5.20); RDW 15.9 % (11.5-14.5); WBC 11.03 X 10*3/uL (4.50-10.00)
--- NOTE | 2024-01-04 11:34 | P.PN ---
Subjective Progress Note Date: 01/04/24 Principal diagnosis: Reason for follow-up is infected Iftios-l-Mgox and bacteremia Patient is a 43-year-old female with a past medical history significant for diabetes mellitus DVT reflux hypertension hyperlipidemia did have a mitochondrial metabolic disorder in this patient who did have a Mediport for hydration and did have a history of multiple line related sepsis with recent culture done in the ER came back positive for MRSA concerning for port infection. Patient did have a removal of infected Wdppdm-i-Idkh by vascular surgery on 12/31/2023 On today's evaluation 01/04/2024,the patient denies any fever or any chills, patient is breathing comfortably on 3 L nasal cannula oxygen, the patient denies chest pain still complaining of some shortness of breath and occasional dry cough, patient denies abdominal pain, no nausea vomiting or diarrhea. Patient white count is 11.03, creatinine 0.48 GERSON was negative for endocarditis repeat blood culture negative Objective - Vital Signs Vital signs: Vital Signs Temp 98.2 F 01/04/24 08:00 Pulse 76 01/04/24 09:29 Resp 19 01/04/24 08:51 BP 108/72 01/04/24 08:00 Pulse Ox 97 01/04/24 08:00 FiO2 Intake & Output 01/03/24 01/04/24 01/04/24 18:59 06:59 18:59 Intake Total 240 360 Balance 240 360 Intake: Oral 240 360 Other: Voiding Method Bedside Commode # Voids 1 2 # Bowel Movements 1 1 - Exam GENERAL DESCRIPTION: Middle-aged female up in bed in no distress RESPIRATORY SYSTEM: Unlabored breathing , decreased breath sounds at bases HEART: S1 S2 regular rate and rhythm , ABDOMEN: Soft , no tenderness EXTREMITIES: No edema feet - Labs CBC & Chem 7: 01/04/24 06:43 01/04/24 06:43 Labs: Abnormal Lab Results - Last 24 Hours (Table) 01/03/24 01/03/24 01/03/24 Range/Units 06:00 11:50 16:57 WBC 10.66 H (4.50-10.00) X 10*3/uL RBC 2.80 L (4.10-5.20) X 10*6/uL Hgb 8.2 L (12.0-15.0) g/dL Hct 26.1 L (37.2-46.3) % MCHC 31.4 L (32.0-37.0) g/dL RDW 15.9 H (11.5-14.5) % NRBC/100 WBC Diff 0.05 H (0.00-0.01) X 10*3/uL Chloride (98-107) mmol/L BUN (7-17) mg/dL Creatinine (0.52-1.04) mg/dL Glucose (74-99) mg/dL POC Glucose (mg/dL) 140 H 171 H (70-110) mg/dL Calcium (8.4-10.2) mg/dL 01/03/24 01/04/24 01/04/24 Range/Units 19:52 05:36 06:43 WBC (4.50-10.00) X 10*3/uL RBC (4.10-5.20) X 10*6/uL Hgb (12.0-15.0) g/dL Hct (37.2-46.3) % MCHC (32.0-37.0) g/dL RDW (11.5-14.5) % NRBC/100 WBC Diff (0.00-0.01) X 10*3/uL Chloride 113 H (98-107) mmol/L BUN <2 L (7-17) mg/dL Creatinine 0.48 L (0.52-1.04) mg/dL Glucose 125 H (74-99) mg/dL POC Glucose (mg/dL) 160 H 129 H (70-110) mg/dL Calcium 8.1 L (8.4-10.2) mg/dL Microbiology - Last 24 Hours (Table) 12/31/23 07:55 Blood Culture - Preliminary Blood 01/02/24 08:31 Blood Culture - Preliminary Blood 01/01/24 06:23 Blood Culture - Preliminary Blood Assessment and Plan (1) Infection due to Port-A-Cath Current Visit: Yes Status: Acute Code(s): T80.219A - UNSP INFECTION DUE TO CENTRAL VENOUS CATHETER, INIT ENCNTR SNOMED Code(s): 539301709 (2) MRSA bacteremia Current Visit: Yes Status: Acute Code(s): R78.81 - BACTEREMIA; B95.62 - METHICILLIN RESIS STAPH INFCT CAUSING DISEASES CLASSD ELSWHR SNOMED Code(s): 68905227104081653 Plan: 1patient presented to hospital with sepsis in this patient who did have a fever tachycardia source is likely Mediport infection hide this patient with evidence of MRSA bacteremia patient also have respiratory symptoms and chest x-ray showing evidence of pneumonia could be related to the MRSA 2-we will try to obtain sputum for culture and culture check a CRP and a procalcitonin level 3-patient is status post removal of Zmxmqd-s-Lbwe by vascular surgery on 4-blood cultures 12/31/2023 and 01/01/2024 so far negative, the patient did have a GERSON completed that was negative for any endocarditis 5-patient to continue with vancomycin pharmacy to dose target trough of 15 while watching kidney function, patient seem to have cleared her bacteremia and s caroluld be able to get a PICC line for outpatient antibiotic therapy Dictation was produced using [employer] dictation software. please excuse any grammatical, word or spelling errors. Time with Patient: Less than 30
[2024-01-04 11:51] LABS: Glucose,Whole Blood 158 mg/dL (70-110)
--- NOTE | 2024-01-04 12:22 | P.PN ---
Subjective Progress Note Date: 01/04/24 I was asked to evaluate this patient for pneumonia. The patient was hospitalized for staph sepsis, likely MRSA and the patient has positive blood cultures. The patient is morbidly obese with a BMI of 40. She is known to have multiple medical problems and the patient has required a Mediport insertion for hydration as the patient is known to have underlying mitochondrial disorder, hypertension, hyperlipidemia, lupus, Emily's thyroiditis, obstructive sleep apnea, DVT on anticoagulation, chronic anxiety bipolar disorder with history of depression. She had a Mediport that was infected. She was in the emergency department where blood cultures were taken and the patient turned out to have positive Staph aureus and she came back to the hospital for further care. She is currently hospitalized. Denies having any chest pain or hemoptysis. She has some exertional dyspnea. Had a viral panel came back negative. As far as his blood work, the patient has a White cell count of 8 with a hemoglobin 8.4 and a platelet count of 307, sodium is at 139, potassium of 3.4, BUN is afebrile creatinine 0.44 and serum bicarb is at 19. LFTs are normal. The patient had blood cultures obtained on 12/29/2023 a total of 4 sets came back positive for MRSA and another blood culture on 12/25/2023 was also positive for Staph aureus/MRSA. The patient was started on IV antibiotics and the patient is currently on IV vancomycin with pharmacy to dose. Home medications have been resumed. She is currently on oxygen at 4 L with a pulse ox of 92%. Chest x-ray was also abnormal and showed bilateral pulmonary filtrates and consolidation in the right upper lobe zone and right perihilar area and in the left upper zone consistent with multifocal pneumonia. Based on that, the patient was given a CT scan of the chest that showed evidence of bilateral nodular opacities which may reflect septic emboli and the patient also has areas of diffuse airspace disease and consolidation and new pulm vessel congestion pleural effusion consistent with CHF. On 01/01/2024, the patient remains on 4 L of oxygen nasal cannula. Repeat cultures were sent. The patient is having some respiratory distress even at rest. No chest pain. No significant sputum production or hemoptysis. GERSON needs to be done to rule out underlying endocarditis. The Mediport has been removed and the patient remains on vancomycin. Labs from today are all stable with a white cell count of 8 hemoglobin of 8 and a platelet count of 346 and a BUN is at 4 with a creatinine of 0.4 and the sodium level is at 138. No interval worsening in her respiratory status. As mentioned, the patient has multiple areas of consolidation and nodular densities consistent with possibility of septic emboli versus hematogenous right of the bacteria to her lungs. Strongly suspect staphylococcal pneumonia. No reported nausea or emesis. Mental status is stable. No headaches. No seizure activity. The patient is seen today January 02, 2024 in follow-up on the regular medical floor. She is currently sitting up in bed. Awake and alert in no acute distre ss. She is feeling quite weak and fatigued. She is maintaining O2 saturations in the 90s on 4 L/min per nasal cannula. She is afebrile. Hemodynamically stable. Blood cultures are positive for MRSA. Mediport culture is showing presumptive MRSA. White count 9.5. Hemoglobin 8.1. Platelets 382. Sodium 140. Potassium 3.4. Bicarb 20. BUN 3.5. Creatinine 0.5. Glucose 135. Vancomycin trough 22.0. She is continued on vancomycin. Anticoagulated with Xarelto. The patient is seen today January 03, 2024 in follow-up on the regular medical floor. She is currently sitting up in a chair. Awake and alert in no acute distress. She did undergo transesophageal echocardiogram earlier this morning. Tolerated the procedure well. Results are pending. Echocardiogram from yesterday had revealed a preserved left ventricular systolic function with ejection fraction 55 to 60% and no noted vegetation. Blood cultures and Mediport cultures are positive for MRSA. Follow-up blood cultures are pending. Count 10.6. Hemoglobin 8.2. Platelets 398. Sodium 139. Potassium 3.5. Bicarb 23. BUN less than 2. Creatinine 0.48. Glucose 123. Anticoagulated with Xarelto. Continued on vancomycin. Patient is seen today January 04, 2024 in follow-up on the regular medical floor. She is currently resting comfortably in bed. Awake and alert in no acute distress. She is maintaining O2 saturations in the 90s on room air. Transesophageal echocardiogram did not reveal any evidence of endocarditis. She does remain on vancomycin. Follow-up blood cultures revealing no growth thus far. White count 11.0. Hemoglobin 8.4. Platelets 390. Sodium 140. Potassium 3.6. Bicarb 24. BUN 2. Creatinine 0.48. Glucose 125. She is continued on albuterol, Symbicort, prednisone. Anticoagulated with Xarelto. Objective - Vital Signs Vital signs: Vital Signs Temp 98.2 F 01/04/24 08:00 Pulse 76 01/04/24 09:29 Resp 19 01/04/24 08:51 BP 108/72 01/04/24 08:00 Pulse Ox 97 01/04/24 08:00 FiO2 Intake & Output 01/03/24 01/04/24 01/04/24 18:59 06:59 18:59 Intake Total 240 360 Balance 240 360 Intake: Oral 240 360 Other: Voiding Method Bedside Commode # Voids 1 2 # Bowel Movements 1 1 - Exam General: Awake, alert, pleasant 43-year-old female. Sitting in bed. Nontoxic, no distress and appears stated age. Currently on room air Derm: Skin warm and dry, normal coloration for ethnicity. Head: Atraumatic, normocephalic and symmetric. Eyes: EOMs intact, no lid lag, and anicteric sclera Mouth: no lip lesions, mucus membranes moist Cardiovascular: regular rate and rhythm with normal S1S2, no murmur, positive posterior tibial pulses bilaterally, and cap refill < 2 seconds. Lungs: Respirations even, regular, and unlabored. Lungs CTA bilaterally, no rhonchi, no rales, no wheezing, and no accessory muscle usage. Abdominal: soft, nontender to palpation, no guarding, no appreciable organomegaly Ext: ROM intact. No gross muscle atrophy, no edema, no contractures Neuro: Speech clear, face symmetrical and CN II-XII grossly intact with no noted focal neuro deficits Psych: Alert and oriented x 3. Appropriate affect. - Labs CBC & Chem 7: 01/04/24 06:43 01/04/24 06:43 Labs: Abnormal Lab Results - Last 24 Hours (Table) 01/03/24 01/03/24 01/04/24 Range/Units 16:57 19:52 05:36 WBC (4.50-10.00) X 10*3/uL RBC (4.10-5.20) X 10*6/uL Hgb (12.0-15.0) g/dL Hct (37.2-46.3) % MCHC (32.0-37.0) g/dL RDW (11.5-14.5) % NRBC/100 WBC Diff (0.00-0.01) X 10*3/uL Chloride (98-107) mmol/L BUN (7-17) mg/dL Creatinine (0.52-1.04) mg/dL Glucose (74-99) mg/dL POC Glucose (mg/dL) 171 H 160 H 129 H (70-110) mg/dL Calcium (8.4-10.2) mg/dL 01/04/24 01/04/24 01/04/24 Range/Units 06:43 06:43 11:49 WBC 11.03 H (4.50-10.00) X 10*3/uL RBC 2.98 L (4.10-5.20) X 10*6/uL Hgb 8.4 L (12.0-15.0) g/dL Hct 28.4 L (37.2-46.3) % MCHC 29.6 L (32.0-37.0) g/dL RDW 15.9 H (11.5-14.5) % NRBC/100 WBC Diff 0.03 H (0.00-0.01) X 10*3/uL Chloride 113 H (98-107) mmol/L BUN <2 L (7-17) mg/dL Creatinine 0.48 L (0.52-1.04) mg/dL Glucose 125 H (74-99) mg/dL POC Glucose (mg/dL) 158 H (70-110) mg/dL Calcium 8.1 L (8.4-10.2) mg/dL Microbiology - Last 24 Hours (Table) 12/31/23 07:55 Blood Culture - Preliminary Blood 01/02/24 08:31 Blood Culture - Preliminary Blood 01/01/24 06:23 Blood Culture - Preliminary Blood Assessment and Plan Assessment: Bilateral pneumonia, most likely staphylococcal pneumonia. The CAT scan of the chest was noted that there were areas of nodular infiltration in addition to areas of consolidation. This obviously raises the concern for septic emboli to the brain. Obviously hematogenous spread to the lungs is also another likely possibility. However, nodular structures will indicate septic emboli. There is also findings consistent with CHF with pulm vessel congestion which obviously raises the concern for infective endocarditis secondary heart failure. Cultures positive for MRSA. Endocarditis ruled out Acute hypoxic respiratory failure, recovered and on room air Mediport infection secondary to MRSA MRSA septicemia currently on vancomycin Mitochondrial metabolic disorder History of CVA Dysautonomia Intracranial hypertension, idiopathic Lupus disorder Emily's thyroiditis Previous history of DVTs History of pituitary microadenoma Patent foramen ovale Narcolepsy Gastroparesis Migraines Pernicious anemia Polycystic ovary syndrome Peripheral neuropathy Difficulty with mobility and the patient needs a wheelchair for mobility Lupus anticoagulant Obstructive sleep apnea Plan: The patient was seen and evaluated Labs and medications reviewed GERSON ruled out endocarditis Continue vancomycin Follow-up blood cultures revealing no growth Will require PICC line and continued antibiotics per ID service We will continue to follow I have personally seen and examined the patient, performed the documentation and the assessment and plan as written. Number of minutes spent on the visit: 10.
--- NOTE | 2024-01-04 14:10 | P.PN ---
Subjective Progress Note Date: 01/04/24 (delayed charting seen at 1045) Patient is a mitochondrial disorder, paraplegia and is wheelchair-bound, hypertension, dyslipidemia, lupus, thyroiditis?, Olq-knylwly-tzchsrbuk diabetes, obstructive sleep apnea on CPAP, multiple other comorbidities who presented to the ER after being found to have positive blood cultures. Patient initially was seen in the ER 4 days prior to admission complaining of fevers and had blood cultures drawn which turned positive for MRSA and she was subsequently asked to come back to the hospital. On arrival to the ER her vitals were remarkable for a pulse of 109. Initial laboratory analysis was remarkable for hemoglobin 9.7, sodium 133, carbon dioxide 18, CRP 37.1. Influenza A/B/RSV/COVID-19 testing was negative. Patient had a chest x-ray which showed right upper lobe opacification. Patient was started on vancomycin. Arrangements were made for admission. Infectious disease and vascular surgery were consulted. She has a Port-A-Cath which was felt to be infected. This was removed on 12/31/2023. She underwent CT chest on 12/30/2023 which demonstrated diffuse airspace disease with possible septic emboli. Cardio was consulted to GERSON. Which was preforemd on 01/03/24 and did not show any signs of endocarditis. She is still feeling very fatigued. She took a shower today and that made her feel quite winded but overall breathing is slightly better than before. She is hoping to do IV antibiotics at home she already has an infusion company set up for her daily hydration. Vital signs reviewed General: Ill-appearing, no distress, appears at stated age Cardiovascular: S1S2 reg, no murmur Lungs: Decreased bs bilateral, no rhonchi, no rales, no accessory muscle use Abdominal: Soft, nontender to palpation, no guarding Ext: + gross muscle atrophy b/l LE, no edema b/l lower extremities, no contractures Neuro: CN II-XI grossly intact, + b/l foot drop, gross muscle wasting b/l LE Psych: Alert, oriented, appropriate affect Assessment/Plan: MRSA bacteremia related to infected port-a-cath Multifocal pneumonia, possible septic emboli Acute hypoxic respiratory failure Mitochondrial disorder --Infected Rhgigf-s-Msrq removed on 12/31/2023 -Case discussed with vascular surgery nurse practitioner and they will place PICC line once blood cultures are negative for 72 hours, hopefully tomorrow. -Pulmonary critical care note reviewed: GERSON has ruled out endocarditis. Continue with vancomycin. -Infectious disease recommendation: Continue with vancomycin. -GERSON without sigsn fo endocarditis -Continue with vancomycin day #7, follow vancomycin trough and and creatinine regarding toxicity -Follow blood cultures until clear, Blood culture from 01/01 negative for 48 hours. -Wean O2 and decrease to 3 L nasal cannula. Lower extremity edema -BNP slightly elevated, echo without signs of CHF. Likely related to IV fluid use along with patient not moving her legs much. Will Papito wrap bilateral lower extremities and start with SCDs. If continues could consider small dose of Lasix. Diabetes -SSI -Hold Actos and semaglutide -Levemir 5 units at night -Tradjenta 5 mg oral daily -A1c 6.8 Hypokalemia, resolved Chronic: Hypertension Dyslipidemia DVT? Lupus? Hypothyroidism Depression/anxiety GERD Asthma without exacerbation PAUL with CPAP use Diarrhea, resolved Imaging: None new Data Review: Labs reviewed from today include CBC and basic metabolic profile which are remarkable for white blood cell count 11, hemoglobin 8.4. DVT prophylaxis: Xarelto Anticipated discharge date: Pending Clinical Course Anticipated discharge place: Pending Clinical Course This dictation was prepared using [employer] voice recognition software. Though every attempt is made to correct errors during dictation some may still exist. Objective - Vital Signs Vital signs: Vital Signs Temp 98.2 F 01/04/24 08:00 Pulse 82 01/04/24 12:52 Resp 19 01/04/24 08:51 BP 108/72 01/04/24 08:00 Pulse Ox 97 01/04/24 08:00 FiO2 Intake & Output 01/03/24 01/04/24 01/04/24 18:59 06:59 18:59 Intake Total 240 478 Balance 240 478 Intake: Oral 240 478 Other: Voiding Method Bedside Commode # Voids 1 2 # Bowel Movements 1 1 - Labs CBC & Chem 7: 01/04/24 06:43 01/04/24 06:43 Labs: Abnormal Lab Results - Last 24 Hours (Table) 01/03/24 01/03/24 01/04/24 Range/Units 16:57 19:52 05:36 WBC (4.50-10.00) X 10*3/uL RBC (4.10-5.20) X 10*6/uL Hgb (12.0-15.0) g/dL Hct (37.2-46.3) % MCHC (32.0-37.0) g/dL RDW (11.5-14.5) % NRBC/100 WBC Diff (0.00-0.01) X 10*3/uL Chloride (98-107) mmol/L BUN (7-17) mg/dL Creatinine (0.52-1.04) mg/dL Glucose (74-99) mg/dL POC Glucose (mg/dL) 171 H 160 H 129 H (70-110) mg/dL Calcium (8.4-10.2) mg/dL 01/04/24 01/04/24 01/04/24 Range/Units 06:43 06:43 11:49 WBC 11.03 H (4.50-10.00) X 10*3/uL RBC 2.98 L (4.10-5.20) X 10*6/uL Hgb 8.4 L (12.0-15.0) g/dL Hct 28.4 L (37.2-46.3) % MCHC 29.6 L (32.0-37.0) g/dL RDW 15.9 H (11.5-14.5) % NRBC/100 WBC Diff 0.03 H (0.00-0.01) X 10*3/uL Chloride 113 H (98-107) mmol/L BUN <2 L (7-17) mg/dL Creatinine 0.48 L (0.52-1.04) mg/dL Glucose 125 H (74-99) mg/dL POC Glucose (mg/dL) 158 H (70-110) mg/dL Calcium 8.1 L (8.4-10.2) mg/dL Microbiology - Last 24 Hours (Table) 01/03/24 06:00 Blood Culture - Preliminary Blood 01/02/24 08:31 Blood Culture - Preliminary Blood 01/01/24 06:23 Blood Culture - Preliminary Blood 12/31/23 07:55 Blood Culture - Preliminary Blood
[2024-01-04 16:13] LABS: Glucose,Whole Blood 113 mg/dL (70-110)
[2024-01-04 20:40] LABS: Glucose,Whole Blood 209 mg/dL (70-110)
[2024-01-05 06:22] LABS: Glucose,Whole Blood 110 mg/dL (70-110)
--- NOTE | 2024-01-05 08:35 | XR ---
EXAMINATION TYPE: XR chest 1V portable DATE OF EXAM: 01/05/2024 7:08 AM CLINICAL INDICATION:Female, 43 years old with history of Hypoxemia; COMPARISON: Chest radiographs from 12/29/2023. TECHNIQUE: XR chest 1V portable Frontal view of the chest. FINDINGS: Lungs/Pleura: There is no evidence of pleural effusion, focal consolidation, or pneumothorax. Pulmonary vascularity: Unremarkable. Heart/mediastinum: Cardiomediastinal silhouette is unremarkable. Musculoskeletal: No acute osseous pathology. Other findings: None IMPRESSION: No acute cardiopulmonary disease/process.
[2024-01-05 11:23] LABS: Glucose,Whole Blood 178 mg/dL (70-110)
--- NOTE | 2024-01-05 11:40 | P.PN ---
Subjective Progress Note Date: 01/05/24 Principal diagnosis: Reason for follow-up is infected Kpofmb-y-Uyry and bacteremia Patient is a 43-year-old female with a past medical history significant for diabetes mellitus DVT reflux hypertension hyperlipidemia did have a mitochondrial metabolic disorder in this patient who did have a Mediport for hydration and did have a history of multiple line related sepsis with recent culture done in the ER came back positive for MRSA concerning for port infection. Patient did have a removal of infected Jsquva-u-Ioiy by vascular surgery on 12/31/2023 On today's evaluation 01/05/2024,the patient remains to be afebrile, patient is on 3 L nasal cannula supplemental oxygen and complaining of shortness of breath on exertion, no chest pain or cough.Patient denies having any nausea or vomiting, no abdominal pain mention some diarrhea but no blood or mucus in the stool Labs pending from this morning, blood culture repeat has been negative Objective - Vital Signs Vital signs: Vital Signs Temp 97.9 F 01/05/24 07:27 Pulse 68 01/05/24 08:00 Resp 17 01/05/24 08:00 BP 108/73 01/05/24 07:27 Pulse Ox 98 01/05/24 08:36 FiO2 Intake & Output 01/04/24 01/05/24 01/05/24 18:59 06:59 18:59 Intake Total 478 Balance 478 Intake: Oral 478 Other: Voiding Method Bedside Commode Bedside Commode # Voids 4 3 # Bowel Movements 1 - Exam GENERAL DESCRIPTION: Middle-aged female up in bed in no distress RESPIRATORY SYSTEM: Unlabored breathing , decreased breath sounds at bases HEART: S1 S2 regular rate and rhythm , ABDOMEN: Soft , no tenderness EXTREMITIES: No edema feet - Labs CBC & Chem 7: 01/04/24 06:43 01/04/24 06:43 Labs: Abnormal Lab Results - Last 24 Hours (Table) 01/04/24 01/04/24 01/04/24 Range/Units 11:49 16:12 20:35 POC Glucose (mg/dL) 158 H 113 H 209 H (70-110) mg/dL 01/05/24 Range/Units 11:22 POC Glucose (mg/dL) 178 H (70-110) mg/dL Microbiology - Last 24 Hours (Table) 12/31/23 10:00 Anaerobic Culture - Final Other - Other 01/03/24 06:00 Blood Culture - Preliminary Blood 01/02/24 08:31 Blood Culture - Preliminary Blood 01/01/24 06:23 Blood Culture - Preliminary Blood Assessment and Plan (1) Infection due to Port-A-Cath Current Visit: Yes Status: Acute Code(s): T80.219A - UNSP INFECTION DUE TO CENTRAL VENOUS CATHETER, INIT ENCNTR SNOMED Code(s): 991606807 (2) MRSA bacteremia Current Visit: Yes Status: Acute Code(s): R78.81 - BACTEREMIA; B95.62 - METHICILLIN RESIS STAPH INFCT CAUSING DISEASES CLASSD ELSR SNOMED Code(s): 61711479596835231 Plan: 1patient presented to hospital with sepsis in this patient who did have a fever tachycardia source is likely Mediport infection hide this patient with evidence of MRSA bacteremia patient also have respiratory symptoms and chest x-ray showing evidence of pneumonia could be related to the MRSA 2-we will try to obtain sputum for culture and culture check a CRP and a procalcitonin level 3-patient is status post removal of Qibdkb-h-Ndjt by vascular surgery on 12/31/2023 4-blood cultures 12/31/2023 and 01/01/2024 so far negative, the patient did have a GERSON completed that was negative for any endocarditis 5-patient currently waiting for PICC line placement plan is for total course of IV vancomycin on discharge multiple question concern answered, patient was slightly concerned about her white count of 11,000 yesterday we will wait for the CBC from this morning Dictation was produced using [employer] dictation software. please excuse any grammatical, word or spelling errors. Time with Patient: Less than 30
[2024-01-05] MEDS: VANCOMYCIN TROUGH DUE 1 EACH MISC MISCELLANE ONE (12:43)
[2024-01-05 13:14] LABS: African American GFR (CKD) >90 (>60 ml/min/1.73 sqM); Anion Gap 7 mmol/L; Blood Urea Nitrogen <2 mg/dL (7-17); Calcium 8.7 mg/dL (8.4-10.2); Carbon Dioxide 21 mmol/L (22-30); Chloride 113 mmol/L (98-107); Glucose 171 mg/dL (74-99); Non-African American GFR(CKD) >90 (>60 ml/min/1.73 sqM); Potassium 3.9 mmol/L (3.5-5.1); Sodium 141 mmol/L (137-145)
--- NOTE | 2024-01-05 13:16 | P.PN ---
Subjective Progress Note Date: 01/05/24 Patient is a mitochondrial disorder, paraplegia and is wheelchair-bound, hypertension, dyslipidemia, lupus, thyroiditis?, Xub-hrxyvxb-xjqrrviir diabetes, obstructive sleep apnea on CPAP, multiple other comorbidities who presented to the ER after being found to have positive blood cultures. Patient initially was seen in the ER 4 days prior to admission complaining of fevers and had blood cultures drawn which turned positive for MRSA and she was subsequently asked to come back to the hospital. On arrival to the ER her vitals were remarkable for a pulse of 109. Initial laboratory analysis was remarkable for hemoglobin 9.7, sodium 133, carbon dioxide 18, CRP 37.1. Influenza A/B/RSV/COVID-19 testing was negative. Patient had a chest x-ray which showed right upper lobe opacification. Patient was started on vancomycin. Arrangements were made for admission. Infectious disease and vascular surgery were consulted. She has a Port-A-Cath which was felt to be infected. This was removed on 12/31/2023. She underwent CT chest on 12/30/2023 which demonstrated diffuse airspace disease with possible septic emboli. Cardio was consulted to GERSON. Which was performed on 01/03/24 and did not show any signs of endocarditis. Patient seen and examined at bedside. No acute events overnight. Vital signs reviewed General: Ill-appearing, no distress, appears at stated age Cardiovascular: S1S2 reg, no murmur Lungs: Decreased bs bilateral, no rhonchi, no rales, no accessory muscle use Abdominal: Soft, nontender to palpation, no guarding Ext: + gross muscle atrophy b/l LE, no edema b/l lower extremities, no contractures Neuro: CN II-XI grossly intact, + b/l foot drop, gross muscle wasting b/l LE Psych: Alert, oriented, appropriate affect Assessment/Plan: MRSA bacteremia related to infected port Multifocal pneumonia, possible septic emboli Acute hypoxic respiratory failure Mitochondrial disorder --Infected Mrnjui-h-Extg removed on 12/31/2023 -Case discussed with vascular surgery nurse practitioner, plan for PICC placement -Pulmonary critical care following, GERSON has ruled out endocarditis. Continue with vancomycin. -Infectious disease note reviewed,: Continue with vancomycin. -GERSON without sign for endocarditis -Continue with vancomycin day #8, follow vancomycin trough and and creatinine regarding toxicity -Follow blood cultures until clear, Blood culture from 01/01 negative for 48 jessenia rs. -Wean O2, patient saturating well on 3 L Lower extremity edema -BNP slightly elevated, echo without signs of CHF. Likely related to IV fluid use along with patient not moving her legs much. Will Papito wrap bilateral lower extremities and start with SCDs. If continues could consider small dose of Lasix. Diabetes -SSI -Hold Actos and semaglutide -Levemir 5 units at night -Tradjenta 5 mg oral daily -A1c 6.8 Hypokalemia, resolved Chronic: Hypertension Dyslipidemia DVT? Lupus? Hypothyroidism Depression/anxiety GERD Asthma without exacerbation PAUL with CPAP use Diarrhea, resolved Imaging: Chest x-ray independently interpreted, no opacities Data Review: CBC and BMP pending, will be reviewed when available DVT prophylaxis: Xarelto Anticipated discharge date: Pending Clinical Course Anticipated discharge place: Pending Clinical Course Objective - Vital Signs Vital signs: Vital Signs Temp 97.9 F 01/05/24 07:27 Pulse 68 01/05/24 08:00 Resp 17 01/05/24 08:00 BP 108/73 01/05/24 07:27 Pulse Ox 98 01/05/24 08:36 FiO2 Intake & Output 01/04/24 01/05/24 01/05/24 18:59 06:59 18:59 Intake Total 478 Balance 478 Intake: Oral 478 Other: Voiding Method Bedside Commode Bedside Commode # Voids 4 3 # Bowel Movements 1 - Labs CBC & Chem 7: 01/04/24 06:43 01/05/24 12:00 Labs: Abnormal Lab Results - Last 24 Hours (Table) 01/04/24 01/04/24 01/05/24 Range/Units 16:12 20:35 11:22 Chloride (98-107) mmol/L Carbon Dioxide (22-30) mmol/L BUN (7-17) mg/dL Creatinine (0.52-1.04) mg/dL Glucose (74-99) mg/dL POC Glucose (mg/dL) 113 H 209 H 178 H (70-110) mg/dL 01/05/24 Range/Units 12:00 Chloride 113 H (98-107) mmol/L Carbon Dioxide 21 L (22-30) mmol/L BUN <2 L (7-17) mg/dL Creatinine 0.49 L (0.52-1.04) mg/dL Glucose 171 H (74-99) mg/dL POC Glucose (mg/dL) (70-110) mg/dL Microbiology - Last 24 Hours (Table) 01/03/24 06:00 Blood Culture - Preliminary Blood 01/02/24 08:31 Blood Culture - Preliminary Blood 12/31/23 10:00 Anaerobic Culture - Final Other - Other 01/01/24 06:23 Blood Culture - Preliminary Blood
--- NOTE | 2024-01-05 13:20 | P.PN ---
Subjective Progress Note Date: 01/05/24 I was asked to evaluate this patient for pneumonia. The patient was hospitalized for staph sepsis, likely MRSA and the patient has positive blood cultures. The patient is morbidly obese with a BMI of 40. She is known to have multiple medical problems and the patient has required a Mediport insertion for hydration as the patient is known to have underlying mitochondrial disorder, hypertension, hyperlipidemia, lupus, Emily's thyroiditis, obstructive sleep apnea, DVT on anticoagulation, chronic anxiety bipolar disorder with history of depression. She had a Mediport that was infected. She was in the emergency department where blood cultures were taken and the patient turned out to have positive Staph aureus and she came back to the hospital for further care. She is currently hospitalized. Denies having any chest pain or hemoptysis. She has some exertional dyspnea. Had a viral panel came back negative. As far as his blood work, the patient has a White cell count of 8 with a hemoglobin 8.4 and a platelet count of 307, sodium is at 139, potassium of 3.4, BUN is afebrile creatinine 0.44 and serum bicarb is at 19. LFTs are normal. The patient had blood cultures obtained on 12/29/2023 a total of 4 sets came back positive for MRSA and another blood culture on 12/25/2023 was also positive for Staph aureus/MRSA. The patient was started on IV antibiotics and the patient is currently on IV vancomycin with pharmacy to dose. Home medications have been resumed. She is currently on oxygen at 4 L with a pulse ox of 92%. Chest x-ray was also abnormal and showed bilateral pulmonary filtrates and consolidation in the right upper lobe zone and right perihilar area and in the left upper zone consistent with multifocal pneumonia. Based on that, the patient was given a CT scan of the chest that showed evidence of bilateral nodular opacities which may reflect septic emboli and the patient also has areas of diffuse airspace disease and consolidation and new pulm vessel congestion pleural effusion consistent with CHF. On 01/01/2024, the patient remains on 4 L of oxygen nasal cannula. Repeat cultures were sent. The patient is having some respiratory distress even at rest. No chest pain. No significant sputum production or hemoptysis. GERSON needs to be done to rule out underlying endocarditis. The Mediport has been removed and the patient remains on vancomycin. Labs from today are all stable with a white cell count of 8 hemoglobin of 8 and a platelet count of 346 and a BUN is at 4 with a creatinine of 0.4 and the sodium level is at 138. No interval worsening in her respiratory status. As mentioned, the patient has multiple areas of consolidation and nodular densities consistent with possibility of septic emboli versus hematogenous right of the bacteria to her lungs. Strongly suspect staphylococcal pneumonia. No reported nausea or emesis. Mental status is stable. No headaches. No seizure activity. The patient is seen today January 02, 2024 in follow-up on the regular medical floor. She is currently sitting up in bed. Awake and alert in no acute distre ss. She is feeling quite weak and fatigued. She is maintaining O2 saturations in the 90s on 4 L/min per nasal cannula. She is afebrile. Hemodynamically stable. Blood cultures are positive for MRSA. Mediport culture is showing presumptive MRSA. White count 9.5. Hemoglobin 8.1. Platelets 382. Sodium 140. Potassium 3.4. Bicarb 20. BUN 3.5. Creatinine 0.5. Glucose 135. Vancomycin trough 22.0. She is continued on vancomycin. Anticoagulated with Xarelto. The patient is seen today January 03, 2024 in follow-up on the regular medical floor. She is currently sitting up in a chair. Awake and alert in no acute distress. She did undergo transesophageal echocardiogram earlier this morning. Tolerated the procedure well. Results are pending. Echocardiogram from yesterday had revealed a preserved left ventricular systolic function with ejection fraction 55 to 60% and no noted vegetation. Blood cultures and Mediport cultures are positive for MRSA. Follow-up blood cultures are pending. Count 10.6. Hemoglobin 8.2. Platelets 398. Sodium 139. Potassium 3.5. Bicarb 23. BUN less than 2. Creatinine 0.48. Glucose 123. Anticoagulated with Xarelto. Continued on vancomycin. Patient is seen today January 04, 2024 in follow-up on the regular medical floor. She is currently resting comfortably in bed. Awake and alert in no acute distress. She is maintaining O2 saturations in the 90s on room air. Transesophageal echocardiogram did not reveal any evidence of endocarditis. She does remain on vancomycin. Follow-up blood cultures revealing no growth thus far. White count 11.0. Hemoglobin 8.4. Platelets 390. Sodium 140. Potassium 3.6. Bicarb 24. BUN 2. Creatinine 0.48. Glucose 125. She is continued on albuterol, Symbicort, prednisone. Anticoagulated with Xarelto. The patient is seen today January 05, 2024 in follow-up on the regular medical floor. She is sitting up in bed. Awake and alert in no acute distress. Maintaining O2 saturations in the 90s on room air. Rest x-ray reveals no acute cardiopulmonary process. Blood cultures revealing no growth. 3141. Potassium 3.9. Bicarb 21. BUN 2. Creatinine 0.49. Glucose 171. Vancomycin trough 17.0. Remains on vancomycin. Anticoagulated with Xarelto. Objective - Vital Signs Vital signs: Vital Signs Temp 97.9 F 01/05/24 07:27 Pulse 68 01/05/24 08:00 Resp 17 01/05/24 08:00 BP 108/73 01/05/24 07:27 Pulse Ox 98 01/05/24 08:36 FiO2 Intake & Output 01/04/24 01/05/24 01/05/24 18:59 06:59 18:59 Intake Total 478 Balance 478 Intake: Oral 478 Other: Voiding Method Bedside Commode Bedside Commode # Voids 4 3 # Bowel Movements 1 - Exam General: Awake, pleasant 43-year-old female. Sitting in bed. In no distress. Currently on room air Derm: Skin warm and dry, normal coloration for ethnicity. Head: Atraumatic, normocephalic and symmetric. Eyes: EOMs intact, no lid lag, and anicteric sclera Mouth: no lip lesions, mucus membranes moist Cardiovascular: regular rate and rhythm with normal S1S2, no murmur, positive posterior tibial pulses bilaterally, and cap refill < 2 seconds. Lungs: Respirations even, regular, and unlabored. Lungs CTA bilaterally, no rhonchi, no rales, no wheezing, and no accessory muscle usage. Abdominal: soft, nontender to palpation, no guarding, no appreciable organomegaly Ext: ROM intact. No gross muscle atrophy, no edema, no contractures Neuro: Speech clear, face symmetrical and CN II-XII grossly intact with no noted focal neuro deficits Psych: Alert and oriented x 3. Appropriate affect. - Labs CBC & Chem 7: 01/04/24 06:43 01/05/24 12:00 Labs: Abnormal Lab Results - Last 24 Hours (Table) 01/04/24 01/04/24 01/05/24 Range/Units 16:12 20:35 11:22 Chloride (98-107) mmol/L Carbon Dioxide (22-30) mmol/L BUN (7-17) mg/dL Creatinine (0.52-1.04) mg/dL Glucose (74-99) mg/dL POC Glucose (mg/dL) 113 H 209 H 178 H (70-110) mg/dL 01/05/24 Range/Units 12:00 Chloride 113 H (98-107) mmol/L Carbon Dioxide 21 L (22-30) mmol/L BUN <2 L (7-17) mg/dL Creatinine 0.49 L (0.52-1.04) mg/dL Glucose 171 H (74-99) mg/dL POC Glucose (mg/dL) (70-110) mg/dL Microbiology - Last 24 Hours (Table) 01/03/24 06:00 Blood Culture - Preliminary Blood 01/02/24 08:31 Blood Culture - Preliminary Blood 12/31/23 10:00 Anaerobic Culture - Final Other - Other 01/01/24 06:23 Blood Culture - Preliminary Blood Assessment and Plan Assessment: Bilateral pneumonia, most likely staphylococcal pneumonia. The CAT scan of the chest was noted that there were areas of nodular infiltration in addition to areas of consolidation. This obviously raises the concern for septic emboli to the brain. Obviously hematogenous spread to the lungs is also another likely possibility. However, nodular structures will indicate septic emboli. There is also findings consistent with CHF with pulm vessel congestion which obviously raises the concern for infective endocarditis secondary heart failure. Cultures positive for MRSA. Endocarditis ruled out Acute hypoxic respiratory failure, recovered and on room air Mediport infection secondary to MRSA MRSA septicemia currently on vancomycin Mitochondrial metabolic disorder History of CVA Dysautonomia Intracranial hypertension, idiopathic Lupus disorder Emily's thyroiditis Previous history of DVTs History of pituitary microadenoma Patent foramen ovale Narcolepsy Gastroparesis Migraines Pernicious anemia Polycystic ovary syndrome Peripheral neuropathy Difficulty with mobility and the patient needs a wheelchair for mobility Lupus anticoagulant Obstructive sleep apnea Plan: The patient was seen and evaluated Chest x-ray, labs and medications reviewed Chest x-ray reveals no acute pulmonary process PICC line pending Antibiotics per ID services Stable and on room air Cleared for discharge from the pulmonary standpoint I have personally seen and examined the patient, performed the documentation and the assessment and plan as written. Number of minutes spent on the visit: 10.
[2024-01-05] MEDS ORDERED: LIDOCAINE 1% INJ 10MG/ML (20 ML MDV) ONE (13:51)
[2024-01-05] MEDS: LIDOCAINE 1% INJ 10MG/ML (20 ML MDV) SQ ONE (14:08)
--- NOTE | 2024-01-05 14:09 | P.PN ---
Subjective Progress Note Date: 01/05/24 Principal diagnosis: Infected [place] Patient is seen and examined today as a follow-up. She is scheduled to get PICC line placement. No other acute changes through the night. She has been afebrile. Repeat blood culture 72 hours with no growth. Objective - Vital Signs Vital signs: Vital Signs Temp 97.9 F 01/05/24 07:27 Pulse 68 01/05/24 07:27 Resp 17 01/05/24 07:27 BP 108/73 01/05/24 07:27 Pulse Ox 98 01/05/24 08:36 FiO2 Intake & Output 01/04/24 01/05/24 01/05/24 18:59 06:59 18:59 Intake Total 478 Balance 478 Intake: Oral 478 Other: Voiding Method Bedside Commode # Voids 4 3 # Bowel Movements 1 - Exam General appearance: The patient is alert, oriented, appears in no acute distress. Obese HET: Head is normocephalic and atraumatic. Pupils are equal and reactive. Neck: Supple. Chest: Left upper chest wall incision with dressing clean dry and intact. Abdomen: Soft, nondistended. Extremities: Normal skin color and turgor. Neurological: No focal deficits. Alert and oriented - Labs CBC & Chem 7: 01/04/24 06:43 01/05/24 12:00 Labs: Abnormal Lab Results - Last 24 Hours (Table) 01/04/24 01/04/24 01/04/24 Range/Units 06:43 11:49 16:12 WBC 11.03 H (4.50-10.00) X 10*3/uL RBC 2.98 L (4.10-5.20) X 10*6/uL Hgb 8.4 L (12.0-15.0) g/dL Hct 28.4 L (37.2-46.3) % MCHC 29.6 L (32.0-37.0) g/dL RDW 15.9 H (11.5-14.5) % NRBC/100 WBC Diff 0.03 H (0.00-0.01) X 10*3/uL POC Glucose (mg/dL) 158 H 113 H (70-110) mg/dL 01/04/24 Range/Units 20:35 WBC (4.50-10.00) X 10*3/uL RBC (4.10-5.20) X 10*6/uL Hgb (12.0-15.0) g/dL Hct (37.2-46.3) % MCHC (32.0-37.0) g/dL RDW (11.5-14.5) % NRBC/100 WBC Diff (0.00-0.01) X 10*3/uL POC Glucose (mg/dL) 209 H (70-110) mg/dL Microbiology - Last 24 Hours (Table) 12/31/23 10:00 Anaerobic Culture - Final Other - Other 01/03/24 06:00 Blood Culture - Preliminary Blood 01/02/24 08:31 Blood Culture - Preliminary Blood 01/01/24 06:23 Blood Culture - Preliminary Blood Assessment and Plan Assessment: 1. Infected Port-A-Cath 2. Bacteremia Plan: 1. Daily dressing change to left chest wall incision with iodoform 2. patient scheduled for a PICC line placement today. Thank you for this consultation, patient is cleared from vascular surgery. We will sign off at this time. The impression and plan of care has been dictated as directed. Dr. Kumar I performed a history and examination of this patient, discussed the same with the dictator. I agree with the dictator's note ,documented as a scribe. Any additional findings or plans will be noted.
--- NOTE | 2024-01-05 14:23 | P.OP ---
Date of Procedure: 01/05/24 Description of Procedure: Preoperative Diagnosis: Need for long-term IV antibiotic, IV access Postoperative Diagnosis: Same. Procedure(s) Performed: Ultrasound-guided cannulation right basilic vein. Insertion of peripherally inserted central catheter under fluoroscopic guidance. Anesthesia: local 1% lidocaine plain Surgeon: Stacy Estimated Blood Loss (ml): 5 IV fluids (ml): 0 Urine output (ml): 0 Pathology: none sent Condition: stable Disposition: no change Indications for Procedure: Patient requires long-term IV antibiotics as an outpatient patient is offered a PICC line to allow for intravenous administration of antibiotics. Description of Procedure: Patient was brought to the special procedure suite. The right upper extremity sterilely prepped and draped in usual manner. Ultrasound was utilized to identify the basilic vein which was normally compressible free of visible thrombus. Permenant image was stored. 1% Xylocaine was utilized for local anesthesia tissues overlying the vein. Through this anesthetized area and with the aid of ultrasound a micropuncture needle was utilized to cannulate the vein. Once cannulated, Softip guidewire was advanced into the vein. The needle was withdrawn and a micropuncture sheath and dilator advanced over the guidewire. The guidewire was withdrawn and exchanged for the PICC guidewire and measured to the cavoatrial junction. The catheter was cut to size and advanced into the cavoatrial junction without resistance. The sheath was peeled away. Blood was easily withdrawn through the catheter and the catheter was then flushed with heparinized saline solution and secured to the skin. Patient tolerated procedure well and was returned to their room in satisfactory and stable condition.
[2024-01-05 15:28] LABS: HCT 29.8 % (37.2-46.3); HGB 8.9 g/dL (12.0-15.0); MCHC 29.9 g/dL (32.0-37.0); MCV 93.7 FL (80.0-97.0); Mean Platelet Volume 9.2 FL (9.5-12.2); NRBC Per 100 WBC 0 X 10*3/uL (0.00-0.01); Platelet Count 362 X 10*3/uL (140-440); RBC 3.18 X 10*6/uL (4.10-5.20); RDW 15.8 % (11.5-14.5); WBC 11.13 X 10*3/uL (4.50-10.00)
[2024-01-05 15:53] LABS: Basophils # (M) 0.22 X 10*3/uL (0.00-0.10); Eosinophils # (M) 0 X 10*3/uL (0.04-0.35); Lymphocytes # (M) 1.56 X 10*3/uL (0.90-5.00); Metamyelocytes % 1 % (0-0); Monocytes # (M) 0.22 X 10*3/uL (0.20-1.00); Myelocytes % 2 % (0-0); Neutrophils # (M) 8.79 X 10*3/uL (1.80-7.70); Neutrophils % (M) 79 %; RBC Morphology Normal (Normal)
[2024-01-05 16:35] LABS: Glucose,Whole Blood 149 mg/dL (70-110)
[2024-01-05 19:46] LABS: Glucose,Whole Blood 177 mg/dL (70-110)
[2024-01-06 05:58] LABS: Glucose,Whole Blood 136 mg/dL (70-110)
--- NOTE | 2024-01-06 08:49 | IR ---
PICC Insertion: EXAMINATION TYPE: IR cvc insert >=5 years Intraoperative/procedural fluoroscopic services were provid ed. CLINICAL INDICATION:Female, 43 years old with history of ABX, 40cm, right basilic vein, 0.5min fluoro , 1.41Vqku5; , [facility] Total fluoroscopy time is 0.5 min. DAP: 1.608 Gycm2 Please see the operative/procedural note for further details.
[2024-01-06 11:15] LABS: Glucose,Whole Blood 184 mg/dL (70-110)
--- NOTE | 2024-01-06 13:06 | P.DS ---
Providers Date of admission: 12/29/23 20:42 Expected date of discharge: 01/06/24 Attending physician: Guzman Jarrell MD Consults: 12/30/23 01:00 Consult Physician Routine Consulting Provider: Juliane Llanes Consult Reason/Comments: bactremia Do you want consulting provider notified?: Yes, Notify in am 12/31/23 10:42 Consult Physician Routine Consulting Provider: Gavin Nichole Consult Reason/Comments: pneumonia Do you want consulting provider notified?: Yes Primary care physician: René Carrillo Hospital Course: Discharge Diagnosis: MRSA bacteremia related to infected port Multifocal pneumonia, possible septic emboli Acute hypoxic respiratory failure Mitochondrial disorder Lower extremity edema Diabetes Hypokalemia Polypharmacy Hospital Course: Patient is a 43 F with hx of mitochondrial disorder, paraplegia and is wheelchair-bound, hypertension, dyslipidemia, lupus, thyroiditis?, Hqy-rmlveql-imddhtodt diabetes, obstructive sleep apnea on CPAP, multiple other comorbidities who presented to the ER after being found to have positive blood cultures. Patient initially was seen in the ER 4 days prior to admission complaining of fevers and had blood cultures drawn which turned positive for MRSA and she was subsequently asked to come back to the hospital. On arrival to the ER her vitals were remarkable for a pulse of 109. Initial laboratory analysis was remarkable for hemoglobin 9.7, sodium 133, carbon dioxide 18, CRP 37.1. Influenza A/B/RSV/COVID-19 testing was negative. Patient had a chest x- ray which showed right upper lobe opacification. Patient was started on vancomycin. Arrangements were made for admission. Infectious disease and vascular surgery were consulted. She has a Port-A-Cath which was felt to be infected. This was removed on 12/31/2023. She underwent CT chest on 12/30/2023 which demonstrated diffuse airspace disease with possible septic emboli. Cardio was consulted to G[facility]. Which was performed on 01/03/24 and did not show any signs of endocarditis. At the time of discharge, patient is on room air. Will continue antibiotics, vancomycin, for 2 weeks. Follow-up with vascular surgery and PCP. Patient seen and examined at bedside. Vital signs reviewed and stable. General: Nontoxic, no distress, appears at stated age, obese Derm: Warm, dry Head: Atraumatic, normocephalic, symmetric Eyes: EOMI, no lid lag, anicteric sclera Mouth: No lip lesion, mucus membranes moist Cardiovascular: S1S2 reg, no murmur Lungs: CTA bilateral, no rhonchi, no rales, no accessory muscle use Abdominal: Soft, nontender to palpation, no guarding, no appreciable organomegaly Ext: No gross muscle atrophy, no edema, no contractures Neuro: CN II-XI grossly intact Psych: Alert, oriented, appropriate affect A total of 33 minutes of time were spent preparing this complex discharge summary. Patient was discharged on 01/06/24 at 1215. Plan - Discharge Summary Discharge Rx Participant: No New Discharge Prescriptions: New Vancomycin 1,500 mg IVPB Q8H each Continue Levothyroxine Sodium [Synthroid] 100 mcg PO DAILY Methenamine Hippurate 1 gm PO BID Mirabegron [Myrbetriq] 25 mg PO DAILY Fenofibrate [Lofibra] 160 mg PO HS tab Rivaroxaban [Xarelto] 20 mg PO HS tab Promethazine [Phenergan] 25 mg PO TID PRN PRN Reason: Nausea Levothyroxine Sodium [Synthroid] 125 mcg PO MOTUWETH Albuterol Inhaler [Ventolin Hfa Inhaler] 2 puff INHALATION RT-Q4H PRN PRN Reason: Shortness Of Breath Dexlansoprazole [Dexilant] 60 mg PO DAILY Galcanezumab-Gnlm [Emgality Pen] 120 mg SQ Q30D Baclofen [Lioresal] 20 mg PO QID polyethylene glycoL 3350 [Miralax] 17 gm PO DAILY PRN PRN Reason: Constipation [place] Carbonate [[place] Carbonate ER] 300 mg PO DAILY cloNIDine HCL [Kapvay] 0.2 mg PO DAILY Prochlorperazine [Compro] 25 mg RECTAL Q8H PRN PRN Reason: Nausea Rimegepant Sulfate [Nurtec Odt] 75 mg PO DAILY PRN PRN Reason: Migraine Headache Pioglitazone [Actos] 45 mg PO DAILY Famotidine 40 mg PO HS Metoprolol Succinate (ER) [Toprol XL] 100 mg PO DAILY Phenazopyridine HCl [Uristat Ultra] 99.5 mg PO DAILY PRN PRN Reason: urinary pain cloNIDine HCL [Catapres] 0.1 mg PO HS modafiniL [Provigil] 400 mg PO DAILY Latanoprost [Latanoprost 0.005%] 1 drop BOTH EYES HS Sucralfate [Carafate] 1 gm PO TID-W/MEALS PRN PRN Reason: Gi Upset Ammonium Lactate Lotion [Lac-Hydrin 12% Lotion] 1 applic TOPICAL DAILY Dexmethylphenidate HCl [Focalin Xr] 10 mg PO DAILY Ketoconazole 2% Shampoo [Nizoral] 1 applic TOPICAL SUWE Mag Hydrox/Al Hydrox/Simeth [Maalox] 30 ml PO QID PRN PRN Reason: gi upset Metoclopramide [Reglan] 10 mg PO ACHS PRN PRN Reason: Nausea predniSONE 5 mg PO W/BRKFST Rizatriptan Benzoate [Rizatriptan] 5 mg PO BID PRN PRN Reason: Migraine Headache Silver Sulfadiazine [Silver Sulfadiazine 1%] 1 applic TOPICAL BID PRN PRN Reason: sores oxyCODONE HCL [OxyIR] 5 mg PO Q6H [place] Carbonate [[place] Carbonate ER] 600 mg PO HS Ezetimibe [Zetia] 10 mg PO HS Cyanocobalamin (Vitamin B-12) [Vitamin B-12] 1,000 mcg PO DAILY busPIRone HCL [Buspar] 30 mg PO BID Fluticasone/Vilanterol [Breo Ellipta 100-25 Mcg Inhaler] 1 puff INHALATION RT-DAILY Ondansetron Odt [Zofran ODT] 8 mg PO TID PRN PRN Reason: Nausea Fluticasone Nasal Jo[place] [Flonase Nasal Joppa] 2 spr EA NOSTRIL BID traZODone HCL 200 mg PO HS Dicyclomine HCl 20 mg PO Q6H PRN PRN Reason: Gi Upset cloNIDine HCL [Kapvay] 0.1 mg PO HS sitaGLIPtin [Januvia] 100 mg PO DAILY Semaglutide [Ozempic] 2 mg SQ TU diazePAM [Valium] 5 mg PO DAILY PRN PRN Reason: Anxiety Triamcinolone 0.5% Cream [Kenalog 0.5% Cream] 1 applic TOPICAL BID PRN PRN Reason: Rash Butalbital/Aspirin/Caffeine [Obhshs-Iqrmsxf-Vwpwflmb 50-325-40 mg] 1 tab PO TID PRN PRN Reason: Migraine Headache Diclofenac Sodium Gel [Voltaren 1% Gel] 4 gm TOPICAL QID PRN PRN Reason: Pain Lactulose 10 - 20 gm PO BID PRN PRN Reason: Constipation Brexpiprazole [Rexulti] 2 mg PO BID Gabapentin 600 mg PO TID Glycopyrrolate [Robinul Forte] 2 mg PO TID Linaclotide [Linzess] 72 mcg PO DAILY Loratadine [Claritin] 10 mg PO DAILY Ylw-Wmzm-Jhmun Acid [-U Capsule (formulary)] 1 cap PO W/BRKFST fluvoxaMINE MALEATE [Luvox] 50 mg PO HS Discontinued Meloxicam [Mobic] 15 mg PO DAILY Trimethoprim [Trimpex] 100 mg PO DAILY Cefdinir [Omnicef] 300 mg PO Q12HR glipiZIDE 10 mg PO AC-BRKFST PRN PRN Reason: high blood sugar Sodium Chloride 0.9% Solution 2,000 ml IV DAILY methylPREDNISolone Dose Pack [Medrol Dose Pack] See Taper PO DIRECTED Discharge Medication List Levothyroxine Sodium [Synthroid] 100 mcg PO DAILY 01/16/19 [History] Methenamine Hippurate 1 gm PO BID 07/12/19 [History] Mirabegron [Myrbetriq] 25 mg PO DAILY 10/08/19 [History] Fenofibrate [Lofibra] 160 mg PO HS tab 10/17/19 [Rx] Rivaroxaban [Xarelto] 20 mg PO HS tab 10/17/19 [Rx] Promethazine [Phenergan] 25 mg PO TID PRN 11/30/19 [History] Levothyroxine Sodium [Synthroid] 125 mcg PO MOTUWETH 12/28/19 [History] Albuterol Inhaler [Ventolin Hfa Inhaler] 2 puff INHALATION RT-Q4H PRN 09/19/20 [History] Dexlansoprazole [Dexilant] 60 mg PO DAILY 09/19/20 [History] Galcanezumab-Gnlm [Emgality Pen] 120 mg SQ Q30D 09/19/20 [History] Cyanocobalamin (Vitamin B-12) [Vitamin B-12] 1,000 mcg PO DAILY 06/01/21 [History] Ezetimibe [Zetia] 10 mg PO HS 06/01/21 [History] busPIRone HCL [Buspar] 30 mg PO BID 06/01/21 [History] Baclofen [Lioresal] 20 mg PO QID 06/02/21 [History] Fluticasone/Vilanterol [Breo Ellipta 100-25 Mcg Inhaler] 1 puff INHALATION RT- DAILY 09/27/21 [History] Ondansetron Odt [Zofran ODT] 8 mg PO TID PRN 09/27/21 [History] polyethylene glycoL 3350 [Miralax] 17 gm PO DAILY PRN 09/27/21 [History] Fluticasone Nasal Joppa [Flonase Nasal Joppa] 2 spr EA NOSTRIL BID 04/26/22 [History] [place] Carbonate [[place] Carbonate ER] 300 mg PO DAILY 04/26/22 [History] traZODone HCL 200 mg PO HS 04/26/22 [History] Dicyclomine HCl 20 mg PO Q6H PRN 06/23/22 [History] Prochlorperazine [Compro] 25 mg RECTAL Q8H PRN 06/23/22 [History] Rimegepant Sulfate [Nurtec Odt] 75 mg PO DAILY PRN 06/23/22 [History] cloNIDine HCL [Kapvay] 0.2 mg PO DAILY 06/23/22 [History] Pioglitazone [Actos] 45 mg PO DAILY 10/07/22 [History] Semaglutide [Ozempic] 2 mg SQ TU 10/07/22 [History] cloNIDine HCL [Kapvay] 0.1 mg PO HS 10/07/22 [History] sitaGLIPtin [Januvia] 100 mg PO DAILY 10/07/22 [History] Famotidine 40 mg PO HS 11/07/22 [History] Metoprolol Succinate (ER) [Toprol XL] 100 mg PO DAILY 11/07/22 [History] Phenazopyridine HCl [Uristat Ultra] 99.5 mg PO DAILY PRN 11/07/22 [History] cloNIDine HCL [Catapres] 0.1 mg PO HS 12/15/22 [History] diazePAM [Valium] 5 mg PO DAILY PRN 02/18/23 [History] modafiniL [Provigil] 400 mg PO DAILY 03/15/23 [History] Butalbital/Aspirin/Caffeine [Bmoszx-Fiswhjh-Oydteutb 50-325-40 mg] 1 tab PO TID PRN 04/12/23 [History] Diclofenac Sodium Gel [Voltaren 1% Gel] 4 gm TOPICAL QID PRN 04/12/23 [History] Latanoprost [Latanoprost 0.005%] 1 drop BOTH EYES HS 04/12/23 [History] Triamcinolone 0.5% Cream [Kenalog 0.5% Cream] 1 applic TOPICAL BID PRN 04/12/23 [History] Brexpiprazole [Rexulti] 2 mg PO BID 06/13/23 [History] Lactulose 10 - 20 gm PO BID PRN 06/13/23 [History] Sucralfate [Carafate] 1 gm PO TID-W/MEALS PRN 06/13/23 [History] Ammonium Lactate Lotion [Lac-Hydrin 12% Lotion] 1 applic TOPICAL DAILY 10/17/23 [History] Dexmethylphenidate HCl [Focalin Xr] 10 mg PO DAILY 10/17/23 [History] Gabapentin 600 mg PO TID 10/17/23 [History] Glycopyrrolate [Robinul Forte] 2 mg PO TID 10/17/23 [History] Ketoconazole 2% Shampoo [Nizoral] 1 applic TOPICAL SUWE 10/17/23 [History] Linaclotide [Linzess] 72 mcg PO DAILY 10/17/23 [History] Loratadine [Claritin] 10 mg PO DAILY 10/17/23 [History] Mag Hydrox/Al Hydrox/Simeth [Maalox] 30 ml PO QID PRN 10/17/23 [History] Metoclopramide [Reglan] 10 mg PO ACHS PRN 10/17/23 [History] Vtd-Vtlh-Cvyyn Acid [-U Capsule (formulary)] 1 cap PO W/BRKFST 10/17/23 [History] Rizatriptan Benzoate [Rizatriptan] 5 mg PO BID PRN 10/17/23 [History] Silver Sulfadiazine [Silver Sulfadiazine 1%] 1 applic TOPICAL BID PRN 10/17/23 [History] fluvoxaMINE MALEATE [Luvox] 50 mg PO HS 10/17/23 [History] predniSONE 5 mg PO W/BRKFST 10/17/23 [History] [place] Carbonate [[place] Carbonate ER] 600 mg PO HS 12/29/23 [History] oxyCODONE HCL [OxyIR] 5 mg PO Q6H 12/29/23 [History] Vancomycin 1,500 mg IVPB Q8H each 01/06/24 [Rx] Follow up Appointment(s)/Referral(s): Marin Mckeon DO [Doctor of Osteopathic Medicine] - 1 Week René Carrillo DO [Primary Care Provider] - 1-2 days Patient Instructions/Handouts: How to Care for Your Implanted Venous Access Port (DC), Central Line Associated Bloodstream Infection (DC), Bacteremia (DC) Activity/Diet/Wound Care/Special Instructions: Pack left chest wall incision with iodoform gauze daily Please see your PCP. You are on multiple different drugs that can interact with each other and also cause severe adverse effects. You will need to slowly be taken off of some of these medications. Discharge Disposition: HOME WITH HOME HEALTH SERVICES
--- NOTE | 2024-01-06 13:09 | P.PN ---
Subjective Progress Note Date: 01/06/24 Principal diagnosis: Reason for follow-up is infected Mcmbxy-l-Rcbx and bacteremia Patient is a 43-year-old female with a past medical history significant for diabetes mellitus DVT reflux hypertension hyperlipidemia did have a mitochondrial metabolic disorder in this patient who did have a Mediport for hydration and did have a history of multiple line related sepsis with recent culture done in the ER came back positive for MRSA concerning for port infection. Patient did have a removal of infected Blssts-b-Fkug by vascular surgery on 12/31/2023 On today's evaluation 01/06/2024, the patient continues to be afebrile, the patient is on room air and breathing comfortably, the Pt denies having any chest pain the patient cough has decreased in intensity, the patient denies having any abdominal pain no vomiting or any diarrhea has been reported by the nursing staff. No new labs has been obtained today blood culture repeat was negative Objective - Vital Signs Vital signs: Vital Signs Temp 98.1 F 01/06/24 07:29 Pulse 82 01/06/24 07:29 Resp 19 01/06/24 07:29 BP 127/72 01/06/24 07:29 Pulse Ox 96 01/06/24 07:29 FiO2 Intake & Output 01/05/24 01/06/24 01/06/24 18:59 06:59 18:59 Weight 110.223 kg Other: Voiding Method Bedside Commode Bedside Commode # Voids 5 2 - Exam GENERAL DESCRIPTION: Middle-aged female up in bed in no distress RESPIRATORY SYSTEM: Unlabored breathing , decreased breath sounds at bases HEART: S1 S2 regular rate and rhythm , ABDOMEN: Soft , no tenderness EXTREMITIES: No edema feet - Labs CBC & Chem 7: 01/05/24 12:00 01/05/24 12:00 Labs: Abnormal Lab Results - Last 24 Hours (Table) 01/05/24 01/05/24 01/05/24 Range/Units 12:00 12:00 16:32 WBC 11.13 H (4.50-10.00) X 10*3/uL RBC 3.18 L (4.10-5.20) X 10*6/uL Hgb 8.9 L (12.0-15.0) g/dL Hct 29.8 L (37.2-46.3) % MCHC 29.9 L (32.0-37.0) g/dL RDW 15.8 H (11.5-14.5) % MPV 9.2 L (9.5-12.2) FL Neutrophils # (Manual) 8.79 H (1.80-7.70) X 10*3/uL Eosinophils # (Manual) 0 L (0.04-0.35) X 10*3/uL Basophils # (Manual) 0.22 H (0.00-0.10) X 10*3/uL Chloride 113 H (98-107) mmol/L Carbon Dioxide 21 L (22-30) mmol/L BUN <2 L (7-17) mg/dL Creatinine 0.49 L (0.52-1.04) mg/dL Glucose 171 H (74-99) mg/dL POC Glucose (mg/dL) 149 H (70-110) mg/dL 01/05/24 01/06/24 01/06/24 Range/Units 19:45 05:57 11:14 WBC (4.50-10.00) X 10*3/uL RBC (4.10-5.20) X 10*6/uL Hgb (12.0-15.0) g/dL Hct (37.2-46.3) % MCHC (32.0-37.0) g/dL RDW (11.5-14.5) % MPV (9.5-12.2) FL Neutrophils # (Manual) (1.80-7.70) X 10*3/uL Eosinophils # (Manual) (0.04-0.35) X 10*3/uL Basophils # (Manual) (0.00-0.10) X 10*3/uL Chloride (98-107) mmol/L Carbon Dioxide (22-30) mmol/L BUN (7-17) mg/dL Creatinine (0.52-1.04) mg/dL Glucose (74-99) mg/dL POC Glucose (mg/dL) 177 H 136 H 184 H (70-110) mg/dL Microbiology - Last 24 Hours (Table) 01/03/24 06:00 Blood Culture - Preliminary Blood 01/01/24 06:23 Blood Culture - Final Blood 12/31/23 07:55 Blood Culture - Final Blood 02/12/24 08:31 Blood Culture - Preliminary Blood Assessment and Plan (1) Infection due to Port-A-Cath Current Visit: Yes Status: Acute Code(s): T80.219A - UNSP INFECTION DUE TO CENTRAL VENOUS CATHETER, INIT ENCNTR SNOMED Code(s): 915230363 (2) MRSA bacteremia Current Visit: Yes Status: Acute Code(s): R78.81 - BACTEREMIA; B95.62 - METHICILLIN RESIS STAPH INFCT CAUSING DISEASES CLASSD ELSR SNOMED Code(s): 22940374620319025 Plan: 1patient presented to hospital with sepsis in this patient who did have a fever tachycardia source is likely Mediport infection hide this patient with evidence of MRSA bacteremia patient also have respiratory symptoms and chest x-ray showing evidence of pneumonia could be related to the MRSA 2-we will try to obtain sputum for culture and culture check a CRP and a procalcitonin level 3-patient is status post removal of Mdehow-f-Ljab by vascular surgery on 12/31/2023 4-blood cultures 12/31/2023 and 01/01/2024 so far negative, the patient did have a GERSON completed that was negative for any endocarditis 5-patient did have a PICC line placement yesterday prescription for a 2-week course of vancomycin has been provided to the rn case management and close outpatient follow-up question concern answered Dictation was produced using [employer] dictation software. please excuse any grammatical, word or spelling errors. Time with Patient: Less than 30
--- NOTE | 2024-01-06 13:24 | P.PN ---
Subjective Progress Note Date: 01/06/24 I was asked to evaluate this patient for pneumonia. The patient was hospitalized for staph sepsis, likely MRSA and the patient has positive blood cultures. The patient is morbidly obese with a BMI of 40. She is known to have multiple medical problems and the patient has required a Mediport insertion for hydration as the patient is known to have underlying mitochondrial disorder, hypertension, hyperlipidemia, lupus, Emily's thyroiditis, obstructive sleep apnea, DVT on anticoagulation, chronic anxiety bipolar disorder with history of depression. She had a Mediport that was infected. She was in the emergency department where blood cultures were taken and the patient turned out to have positive Staph aureus and she came back to the hospital for further care. She is currently hospitalized. Denies having any chest pain or hemoptysis. She has some exertional dyspnea. Had a viral panel came back negative. As far as his blood work, the patient has a White cell count of 8 with a hemoglobin 8.4 and a platelet count of 307, sodium is at 139, potassium of 3.4, BUN is afebrile creatinine 0.44 and serum bicarb is at 19. LFTs are normal. The patient had blood cultures obtained on 12/29/2023 a total of 4 sets came back positive for MRSA and another blood culture on 12/25/2023 was also positive for Staph aureus/MRSA. The patient was started on IV antibiotics and the patient is currently on IV vancomycin with pharmacy to dose. Home medications have been resumed. She is currently on oxygen at 4 L with a pulse ox of 92%. Chest x-ray was also abnormal and showed bilateral pulmonary filtrates and consolidation in the right upper lobe zone and right perihilar area and in the left upper zone consistent with multifocal pneumonia. Based on that, the patient was given a CT scan of the chest that showed evidence of bilateral nodular opacities which may reflect septic emboli and the patient also has areas of diffuse airspace disease and consolidation and new pulm vessel congestion pleural effusion consistent with CHF. On 01/01/2024, the patient remains on 4 L of oxygen nasal cannula. Repeat cultures were sent. The patient is having some respiratory distress even at rest. No chest pain. No significant sputum production or hemoptysis. GERSON needs to be done to rule out underlying endocarditis. The Mediport has been removed and the patient remains on vancomycin. Labs from today are all stable with a white cell count of 8 hemoglobin of 8 and a platelet count of 346 and a BUN is at 4 with a creatinine of 0.4 and the sodium level is at 138. No interval worsening in her respiratory status. As mentioned, the patient has multiple areas of consolidation and nodular densities consistent with possibility of septic emboli versus hematogenous right of the bacteria to her lungs. Strongly suspect staphylococcal pneumonia. No reported nausea or emesis. Mental status is stable. No headaches. No seizure activity. The patient is seen today January 02, 2024 in follow-up on the regular medical floor. She is currently sitting up in bed. Awake and alert in no acute distre ss. She is feeling quite weak and fatigued. She is maintaining O2 saturations in the 90s on 4 L/min per nasal cannula. She is afebrile. Hemodynamically stable. Blood cultures are positive for MRSA. Mediport culture is showing presumptive MRSA. White count 9.5. Hemoglobin 8.1. Platelets 382. Sodium 140. Potassium 3.4. Bicarb 20. BUN 3.5. Creatinine 0.5. Glucose 135. Vancomycin trough 22.0. She is continued on vancomycin. Anticoagulated with Xarelto. The patient is seen today January 03, 2024 in follow-up on the regular medical floor. She is currently sitting up in a chair. Awake and alert in no acute distress. She did undergo transesophageal echocardiogram earlier this morning. Tolerated the procedure well. Results are pending. Echocardiogram from yesterday had revealed a preserved left ventricular systolic function with ejection fraction 55 to 60% and no noted vegetation. Blood cultures and Mediport cultures are positive for MRSA. Follow-up blood cultures are pending. Count 10.6. Hemoglobin 8.2. Platelets 398. Sodium 139. Potassium 3.5. Bicarb 23. BUN less than 2. Creatinine 0.48. Glucose 123. Anticoagulated with Xarelto. Continued on vancomycin. Patient is seen today January 04, 2024 in follow-up on the regular medical floor. She is currently resting comfortably in bed. Awake and alert in no acute distress. She is maintaining O2 saturations in the 90s on room air. Transesophageal echocardiogram did not reveal any evidence of endocarditis. She does remain on vancomycin. Follow-up blood cultures revealing no growth thus far. White count 11.0. Hemoglobin 8.4. Platelets 390. Sodium 140. Potassium 3.6. Bicarb 24. BUN 2. Creatinine 0.48. Glucose 125. She is continued on albuterol, Symbicort, prednisone. Anticoagulated with Xarelto. The patient is seen today January 05, 2024 in follow-up on the regular medical floor. She is sitting up in bed. Awake and alert in no acute distress. Maintaining O2 saturations in the 90s on room air. Rest x-ray reveals no acute cardiopulmonary process. Blood cultures revealing no growth. 3141. Potassium 3.9. Bicarb 21. BUN 2. Creatinine 0.49. Glucose 171. Vancomycin trough 17.0. Remains on vancomycin. Anticoagulated with Xarelto. The patient is seen today January 06, 2024 in follow-up on the regular medical floor. She is awake and alert in no acute distress. Sitting up at the bedside. Denies any worsening shortness of breath, cough or congestion. Maintaining good O2 saturations in the 90s on room air. Her PICC line has been placed. The plan is for home with IV antibiotics per ID services. Follow-up blood cultures reveal no growth. Glucose 184. She remains on vancomycin. Anticoagulated with Xarelto. Objective - Vital Signs Vital signs: Vital Signs Temp 98.1 F 01/06/24 07:29 Pulse 82 01/06/24 07:29 Resp 19 01/06/24 07:29 BP 127/72 01/06/24 07:29 Pulse Ox 96 01/06/24 07:29 FiO2 Intake & Output 01/05/24 01/06/24 01/06/24 18:59 06:59 18:59 Weight 110.223 kg Other: Voiding Method Bedside Commode Bedside Commode # Voids 5 2 - Exam General: Awake, pleasant 43-year-old female. In no distress. On room air Derm: Skin warm and dry, normal coloration for ethnicity. Head: Atraumatic, normocephalic and symmetric. Eyes: EOMs intact, no lid lag, and anicteric sclera Mouth: no lip lesions, mucus membranes moist Cardiovascular: regular rate and rhythm with normal S1S2, no murmur, positive posterior tibial pulses bilaterally, and cap refill < 2 seconds. Lungs: Respirations even, regular, and unlabored. Lungs CTA bilaterally, no rhonchi, no rales, no wheezing, and no accessory muscle usage. Abdominal: soft, nontender to palpation, no guarding, no appreciable organomegaly Ext: ROM intact. No gross muscle atrophy, no edema, no contractures. Right upper extremity PICC line in place Neuro: Speech clear, face symmetrical and CN II-XII grossly intact with no noted focal neuro deficits Psych: Alert and oriented x 3. Appropriate affect. - Labs CBC & Chem 7: 01/05/24 12:00 01/05/24 12:00 Labs: Abnormal Lab Results - Last 24 Hours (Table) 01/05/24 01/05/24 01/05/24 Range/Units 12:00 16:32 19:45 WBC 11.13 H (4.50-10.00) X 10*3/uL RBC 3.18 L (4.10-5.20) X 10*6/uL Hgb 8.9 L (12.0-15.0) g/dL Hct 29.8 L (37.2-46.3) % MCHC 29.9 L (32.0-37.0) g/dL RDW 15.8 H (11.5-14.5) % MPV 9.2 L (9.5-12.2) FL Neutrophils # (Manual) 8.79 H (1.80-7.70) X 10*3/uL Eosinophils # (Manual) 0 L (0.04-0.35) X 10*3/uL Basophils # (Manual) 0.22 H (0.00-0.10) X 10*3/uL POC Glucose (mg/dL) 149 H 177 H (70-110) mg/dL 01/06/24 01/06/24 Range/Units 05:57 11:14 WBC (4.50-10.00) X 10*3/uL RBC (4.10-5.20) X 10*6/uL Hgb (12.0-15.0) g/dL Hct (37.2-46.3) % MCHC (32.0-37.0) g/dL RDW (11.5-14.5) % MPV (9.5-12.2) FL Neutrophils # (Manual) (1.80-7.70) X 10*3/uL Eosinophils # (Manual) (0.04-0.35) X 10*3/uL Basophils # (Manual) (0.00-0.10) X 10*3/uL POC Glucose (mg/dL) 136 H 184 H (70-110) mg/dL Microbiology - Last 24 Hours (Table) 01/03/24 06:00 Blood Culture - Preliminary Blood 01/01/24 06:23 Blood Culture - Final Blood 12/31/23 07:55 Blood Culture - Final Blood 01/02/24 08:31 Blood Culture - Preliminary Blood Assessment and Plan Assessment: Bilateral pneumonia, most likely staphylococcal pneumonia. The CAT scan of the chest was noted that there were areas of nodular infiltration in addition to areas of consolidation. This obviously raises the concern for septic emboli to the brain. Obviously hematogenous spread to the lungs is also another likely possibility. However, nodular structures will indicate septic emboli. There is also findings consistent with CHF with pulm vessel congestion which obviously raises the concern for infective endocarditis secondary heart failure. Cultures positive for MRSA. Endocarditis ruled out Acute hypoxic respiratory failure, recovered and on room air Mediport infection secondary to MRSA MRSA septicemia currently on vancomycin Mitochondrial metabolic disorder History of CVA Dysautonomia Intracranial hypertension, idiopathic Lupus disorder Emily's thyroiditis Previous history of DVTs History of pituitary microadenoma Patent foramen ovale Narcolepsy Gastroparesis Migraines Pernicious anemia Polycystic ovary syndrome Peripheral neuropathy Difficulty with mobility and the patient needs a wheelchair for mobility Lupus anticoagulant Obstructive sleep apnea Plan: The patient was seen and evaluated Labs and medications reviewed PICC line placed Antibiotics per ID services Cleared for discharge from the pulmonary standpoint I have personally seen and examined the patient, performed the documentation and the assessment and plan as written. Number of minutes spent on the visit: 10.
[2024-01-06 14:04] VITALS: BP 132/90; PULSE 77; RESP 17; TEMP 99.1
== END 2024-01-06 15:29 | disposition home health service (06) | DRG 314 ==
LOC: EC 15:02 → 4SSUR 20:42
PROVIDERS: ADMIT Internal Medicine; ATTEND Internal Medicine
PROC: 0WP803Z Removal of Infusion Device from Chest Wall, Open Approach (ICD-10-PCS; principal; 2023-12-31 09:00)
PROC: B24BZZ4 Ultrasonography of Heart with Aorta, Transesophageal (ICD-10-PCS; 2024-01-03)
PROC: 02HV33Z Insertion of Infusion Device into Superior Vena Cava, Percutaneous Approach (ICD-10-PCS; 2024-01-05)
PROC: 02HV33Z Insertion of Infusion Device into Superior Vena Cava, Percutaneous Approach (ICD-10-PCS; 2024-01-06)
DX: T80.211A Bloodstream infection due to central venous catheter, initial encounter (principal); A41.02 Sepsis due to Methicillin resistant Staphylococcus aureus; J15.212 Pneumonia due to Methicillin resistant Staphylococcus aureus; J96.01 Acute respiratory failure with hypoxia; Z68.41 Body mass index [BMI] 40.0-44.9, adult; F84.0 Autistic disorder; E88.40 Mitochondrial metabolism disorder, unspecified; G82.20 Paraplegia, unspecified; Q21.12 Patent foramen ovale; I76 Septic arterial embolism; D68.62 Lupus anticoagulant syndrome; D51.0 Vitamin B12 deficiency anemia due to intrinsic factor deficiency; E28.2 Polycystic ovarian syndrome; E11.43 Type 2 diabetes mellitus with diabetic autonomic (poly)neuropathy; E11.42 Type 2 diabetes mellitus with diabetic polyneuropathy; E66.01 Morbid (severe) obesity due to excess calories; E06.3 Autoimmune thyroiditis; E78.5 Hyperlipidemia, unspecified; G47.33 Obstructive sleep apnea (adult) (pediatric); R19.7 Diarrhea, unspecified; E87.6 Hypokalemia; F31.9 Bipolar disorder, unspecified; F43.10 Post-traumatic stress disorder, unspecified; H91.90 Unspecified hearing loss, unspecified ear; G43.909 Migraine, unspecified, not intractable, without status migrainosus; G47.419 Narcolepsy without cataplexy; Z99.3 Dependence on wheelchair; G90.1 Familial dysautonomia [Riley-Day]; G93.2 Benign intracranial hypertension; Y71.2 Prosthetic and other implants, materials and accessory cardiovascular devices associated with adverse incidents; I11.0 Hypertensive heart disease with heart failure; K21.9 Gastro-esophageal reflux disease without esophagitis; K31.84 Gastroparesis; I50.9 Heart failure, unspecified; M21.372 Foot drop, left foot; M21.371 Foot drop, right foot; Z79.01 Long term (current) use of anticoagulants; Z79.1 Long term (current) use of non-steroidal anti-inflammatories (NSAID); Z79.4 Long term (current) use of insulin; Z79.84 Long term (current) use of oral hypoglycemic drugs; Z79.890 Hormone replacement therapy; Z79.899 Other long term (current) drug therapy; Z86.718 Personal history of other venous thrombosis and embolism; Z86.73 Personal history of transient ischemic attack (TIA), and cerebral infarction without residual deficits; Z88.2 Allergy status to sulfonamides; Z88.8 Allergy status to other drugs, medicaments and biological substances; Z91.010 Allergy to peanuts; Z86.14 Personal history of Methicillin resistant Staphylococcus aureus infection
CPT/HCPCS: 36415; 36573; 71045; 71046; 71250; 80048; 80053; 80202; 81003; 81025; 82565; 83036; 83605; 83880; 84484; 85025; 85027; 85610; 85730; 86140; 87040; 87070; 87075; 87077; 87186; 87205; 87449; 87636; 93005; 93306; 93312; 93320; 93325; 94640; 94760; 96365; 96366; 96367; 99285

== ENCOUNTER → 2024-04-03 | Outpatient (CLI) | payer MEDICARE, OTHER ==
--- NOTE | 2024-04-03 14:39 | CT ---
EXAMINATION TYPE: CT chest wo con DATE OF EXAM: 04/03/2024 COMPARISON: 12/30/2023 HISTORY: F/U MRSA, PNEUMONIA, SEPTIC EMBOLI IN DEC 2023 CT DLP: [address] of the chest was performed with lung and mediastinal window settings submitted. The la ck of contrast limits evaluation of the vascular, mediastinal and parenchymal structures including th e upper abdomen. LUNGS: The lungs are clear and free of infiltrate. Resolution of previously noted diffuse airspace in filtrates and bilateral pleural effusions. No atelectasis. Pulmonary nodule right lower lobe image 30 measures 1 cm. Additional nodular density right lower lobe measures 6 mm. No additional pulmonary no dules seen. No pleural effusion. No CT evidence of interstitial lung disease. MEDIASTINUM/NO: Thoracic aorta is of normal caliber with limited evaluation given lack of contrast . The heart is not enlarged. No evidence for mediastinal mass. No lymph nodes greater than 1cm. UPPER ABDOMEN: No significant abnormality is seen. OTHER: No significant other abnormality. IMPRESSION: 1. Resolution of previously noted diffuse airspace infiltrates and bilateral pleural effusions. 2. Pulmonary nodules right lower lobe as discussed. Six-month follow-up advised.
== END | disposition home or self-care (01) ==
LOC: RADCTMAIN 13:46
PROVIDERS: ATTEND Internal Medicine
DX: R91.8 Other nonspecific abnormal finding of lung field (principal)
CPT/HCPCS: 71250

== ENCOUNTER → 2024-04-19 | Outpatient (CLI) | payer MEDICARE, OTHER ==
--- NOTE | 2024-04-20 17:26 | MM ---
Reason for Exam: Screening (asymptomatic). Last mammogram was performed 14 year(s) and 3 month(s) ago. Patient History: Menarche at age 14. Patient has no children. Risk Values: Lexy 5 year model risk: 0.7%. NCI Lifetime model risk: 10.9%. Prior Study Comparison: 01/13/2010 Bilateral Diagnostic Mammogram, [facility]. Tissue Density: There are scattered areas of fibroglandular density. Findings: Analyzed By CAD. The pattern is symmetrical. No suspicious groups of microcalcifications, spiculated or lobular masses, architectural distortion or other secondary signs of malignancy are mammographically apparent. Overall Assessment: Benign, BI-RAD 2 Management: Screening Mammogram of both breasts in 1 year. A negative mammogram report should not preclude additional follow up of suspicious palpable abnormalities. Patient should continue monthly self breast exam. A clinical breast exam by your physician is recommended on an annual basis and results should be correlated with mammographic findings. Note on Lexy scores and lifetime risk: 1. A Lexy score greater than 3% is considered moderate risk. If this is the case, consider specialist referral to assess eligibility for a risk reducing agent. 2. If overall lifetime risk for the development of breast cancer is 20% or higher, the patient may qualify for future screening with alternating mammogram and breast MRI. Electronically signed and approved by: Anson Flroes D.O. Radiologis
== END | disposition home or self-care (01) ==
LOC: RADMAMWWP 14:45
PROVIDERS: ATTEND Internal Medicine
DX: Z12.31 Encounter for screening mammogram for malignant neoplasm of breast (principal)
CPT/HCPCS: 77063; 77067

== ENCOUNTER → 2024-05-17 | Outpatient (CLI) | payer MEDICARE, OTHER ==
--- NOTE | 2024-05-17 14:40 | US ---
EXAMINATION TYPE: US abdomen complete DATE OF EXAM: 05/17/2024 COMPARISON: 02/02/2023 CLINICAL INDICATION: Female, 43 years old with history of K76.0 FATTY (CHANGE OF) LIVER, NOT ELSEWHER E CLASS; Fatty liver, GB removed TECHNIQUE: Multiple sonographic images of the abdomen are obtained. FINDINGS: EXAM MEASUREMENTS: Liver Length: 24.9 cm CBD: 0.4 cm Spleen: 12.6 cm Right Kidney: 12.7 x 4.7 x 5.2 cm Left Kidney: 12.9 x 5.9 x 5.9 cm \ Pancreas: wnl Liver: Enlarged, heterogeneous Gallbladder: Surgically absent Evidence for sonographic Harris's sign: No CBD: wnl Spleen: wnl Right Kidney: No evidence of hydro, cystic lesion lower pole= 1.5 x 1.3 x 1.9 cm Left Kidney: No evidence of hydro, multiple cystic lesions lower pole, largest measured= 2.1 x 2.0 x 2.1 cm Upper IVC: wnl Abd Aorta: wnl IMPRESSION: 1. Hepatomegaly which has increased from 21 cm to 25 cm. 2. Stable mild fatty infiltration. 3. Cholecystectomy. 4. Bilateral renal cysts.
== END | disposition home or self-care (01) ==
LOC: RADUSWWP 12:11
PROVIDERS: ATTEND Internal Medicine
DX: K76.0 Fatty (change of) liver, not elsewhere classified (principal); N28.1 Cyst of kidney, acquired; R16.0 Hepatomegaly, not elsewhere classified
CPT/HCPCS: 76700

== ENCOUNTER → 2024-05-23 | Outpatient (CLI) | payer MEDICARE, OTHER ==
[2024-05-23 15:48] VITALS: BP 128/87; PULSE 88; RESP 16; TEMP 99
--- NOTE | 2024-05-23 16:45 | P.PROGSL ---
Subjective DATE: 05/23/2024 FOLLOW UP VISIT. Patient with obstructive sleep apnea hypopnea syndrome and narcolepsy return to sleep center for follow-up visit . Information from previous visit have been reviewed. Patient is using PAP equipment every night for the whole night, getting PAP supplies in time. The patient does not have significant problems with the mask, PAP unit and humidification. [place] sleepiness scale is increased to 14. Patient is on modafinil 400 mg in the morning to prevent excessive daytime sleepiness. I checked information from PAP unit. PAP unit pressure 5-15, average 11.2 cm H2O. Usage is 90% and 80% for more then 4 hours, average 7.75 hours per night. Leak is 16.4 l/m, which is in acceptable range. Apnea Hypopnea Index is 0.3, which is normal. MEDICATIONS: Please see below During physical exam: GENERAL: A pleasant patient without any distress. VITAL SIGNS: Please see below. HEENT: PERRLA, EOMI.low position of soft palate, Mallapati 4 . NECK: Supple. No JVD. LUNGS: Clear to percussion and to auscultation. Good air exchange. No wheezing or rhonchi. HEART: S1, S2 regular. ABDOMEN: Soft and nontender.[] EXTREMITIES: No clubbing or cyanosis. [employer]: Awake, alert, and oriented x3. No focal deficit. Impressions: 1. Obstructive sleep apnea-hypopnea syndrome. Patient demonstrated great compliance with treatment, benefiting from treatment. 2. Narcolepsy type I, confirmed by multiple sleep latency test with 3 sleep onset REM.'s. 3. Diabetes mellitus. 4. Lupus erythematosus. 5. History of DVT and stroke. 6. History of Emily thyroiditis, hypothyroidism. 7. History of migraine. 8. History of polycystic ovary syndrome. 9. History of GERD. 10. History of idiopathic intracranial hypertension. 11. History of pernicious anemia. 12. History of asthma. 13. History of bipolar disorder, anxiety and PTSD Plan: 1. Continue using PAP equipment every night for the whole night. 2. To continue modafinil 400 mg every morning. 3. PAP unit should stay lower then position of the head. 4. Advised patient to remove all remaining water from humidifier canister daily and make it dry after each usage. Refill canister with fresh distilled water before each usage. 5. Sleep hygiene with regular time in bed for at least 8 hours. 6. Precautions related to driving. No driving if feel any sleepiness. 7. I will maintain prescription for PAP supplies including mask, tube, filters. 8. Follow up visit in 6 months or earlier if patient has any problems. 9. Watching and losing weight. Thank you very much for allowing me to participate in the management of your patient. Mateo Schilling MD, PhD, FAASM. Diplomat of [place] [employer], Sleep Medicine Board by [place] [employer] Staff [employer] [facility] [place] Objective - Vital Signs Vital Signs: Vital Signs Temp 99 F 05/23/24 15:47 Pulse 88 05/23/24 15:47 Resp 16 05/23/24 15:47 BP 128/87 05/23/24 15:47 Pulse Ox 98 05/23/24 15:47 FiO2 Intake & Output 05/22/24 05/23/24 05/23/24 18:59 06:59 18:59 Weight 111.13 kg Home Medications: Home Medications Medication Instructions Recorded Confirmed Type Levothyroxine Sodium [Synthroid] 100 mcg PO DAILY 01/16/19 05/23/24 History Methenamine Hippurate 1 gm PO BID 07/12/19 05/23/24 History Mirabegron [Myrbetriq] 25 mg PO DAILY 10/08/19 05/23/24 History Fenofibrate [Lofibra] 160 mg PO HS tab 10/17/19 05/23/24 Rx Rivaroxaban [Xarelto] 20 mg PO HS tab 10/17/19 05/23/24 Rx Promethazine [Phenergan] 25 mg PO TID PRN 11/30/19 05/23/24 History Levothyroxine Sodium [Synthroid] 125 mcg PO MOTUWETH 12/28/19 05/23/24 History Albuterol Inhaler [Ventolin Hfa 2 puff INHALATION RT-Q4H PRN 09/19/20 05/23/24 History Inhaler] Dexlansoprazole [Dexilant] 60 mg PO DAILY 09/19/20 05/23/24 History Galcanezumab-Gnlm [Emgality Pen] 120 mg SQ Q30D 09/19/20 05/23/24 History Cyanocobalamin (Vitamin B-12) 1,000 mcg PO DAILY 06/01/21 05/23/24 History [Vitamin B-12] Ezetimibe [Zetia] 10 mg PO HS 06/01/21 05/23/24 History busPIRone HCL [Buspar] 30 mg PO BID 06/01/21 05/23/24 History Baclofen [Lioresal] 20 mg PO QID 06/02/21 05/23/24 History Fluticasone/Vilanterol [Breo 1 puff INHALATION RT-DAILY 09/27/21 12/29/23 History Ellipta 100-25 Mcg Inhaler] Ondansetron Odt [Zofran ODT] 8 mg PO TID PRN 09/27/21 05/23/24 History polyethylene glycoL 3350 [Miralax] 17 gm PO DAILY PRN 09/27/21 05/23/24 History Fluticasone Nasal [place] [Flonase 2 spr EA NOSTRIL BID 04/26/22 05/23/24 History Nasal [place]] Landess Carbonate [Landess 300 mg PO DAILY 04/26/22 05/23/24 History Carbonate ER] traZODone HCL 200 mg PO HS 04/26/22 05/23/24 History Dicyclomine HCl 20 mg PO Q6H PRN 06/23/22 05/23/24 History Prochlorperazine [Compro] 25 mg RECTAL Q8H PRN 06/23/22 05/23/24 History Rimegepant Sulfate [Nurtec Odt] 75 mg PO DAILY PRN 06/23/22 12/29/23 History cloNIDine HCL [Kapvay] 0.2 mg PO DAILY 06/23/22 05/23/24 History Pioglitazone [Actos] 45 mg PO DAILY 10/07/22 05/23/24 History Semaglutide [Ozempic] 2 mg SQ TU 10/07/22 12/29/23 History cloNIDine HCL [Kapvay] 0.1 mg PO HS 10/07/22 12/29/23 History sitaGLIPtin [Januvia] 100 mg PO DAILY 10/07/22 12/29/23 History Famotidine 40 mg PO HS 11/07/22 05/23/24 History Metoprolol Succinate (ER) [Toprol 100 mg PO DAILY 11/07/22 05/23/24 History XL] Phenazopyridine HCl [Uristat Ultra] 99.5 mg PO DAILY PRN 11/07/22 05/23/24 History cloNIDine HCL [Catapres] 0.1 mg PO HS 12/15/22 05/23/24 History diazePAM [Valium] 5 mg PO DAILY PRN 02/18/23 05/23/24 History modafiniL [Provigil] 400 mg PO DAILY 03/15/23 05/23/24 History Butalbital/Aspirin/Caffeine 1 tab PO TID PRN 04/12/23 05/23/24 History [Ffkxzm-Rozrrdk-Xiwbtoej 50-325-40 mg] Diclofenac Sodium Gel [Voltaren 1% 4 gm TOPICAL QID PRN 04/12/23 12/29/23 History Gel] Latanoprost [Latanoprost 0.005%] 1 drop BOTH EYES HS 04/12/23 05/23/24 History Triamcinolone 0.5% Cream [Kenalog 1 applic TOPICAL BID PRN 04/12/23 05/23/24 History 0.5% Cream] Brexpiprazole [Rexulti] 2 mg PO BID 06/13/23 05/23/24 History Lactulose 10 - 20 gm PO BID PRN 06/13/23 05/23/24 History Sucralfate [Carafate] 1 gm PO TID-W/MEALS PRN 06/13/23 05/23/24 History Ammonium Lactate Lotion 1 applic TOPICAL DAILY 10/17/23 05/23/24 History [Lac-Hydrin 12% Lotion] Dexmethylphenidate HCl [Focalin Xr] 10 mg PO DAILY 10/17/23 05/23/24 History Gabapentin 600 mg PO TID 10/17/23 05/23/24 History Glycopyrrolate [Robinul Forte] 2 mg PO TID 10/17/23 05/23/24 History Ketoconazole 2% Shampoo [Nizoral] 1 applic TOPICAL SUWE 10/17/23 05/23/24 History Linaclotide [Linzess] 72 mcg PO DAILY 10/17/23 05/23/24 History Loratadine [Claritin] 10 mg PO DAILY 10/17/23 12/29/23 History Mag Hydrox/Al Hydrox/Simeth 30 ml PO QID PRN 10/17/23 05/23/24 History [Maalox] Metoclopramide [Reglan] 10 mg PO ACHS PRN 10/17/23 05/23/24 History Dfi-Qsfu-Likkh Acid 1 cap PO W/BRKFST 10/17/23 12/29/23 History [-U Capsule (formulary)] Rizatriptan Benzoate [Rizatriptan] 5 mg PO BID PRN 10/17/23 05/23/24 History Silver Sulfadiazine [Silver 1 applic TOPICAL BID PRN 10/17/23 12/29/23 History Sulfadiazine 1%] fluvoxaMINE MALEATE [Luvox] 50 mg PO HS 10/17/23 05/23/24 History predniSONE 5 mg PO W/BRKFST 10/17/23 05/23/24 History Landess Carbonate [Landess 600 mg PO HS 12/29/23 05/23/24 History Carbonate ER] oxyCODONE HCL [OxyIR] 5 mg PO Q6H 12/29/23 12/29/23 History Vancomycin 1,500 mg IVPB Q8H each 01/06/24 Rx
== END ==
LOC: 3 N SLEEP 15:03
PROVIDERS: ATTEND Internal Medicine
DX: G47.33 Obstructive sleep apnea (adult) (pediatric) (principal); G47.419 Narcolepsy without cataplexy; G47.52 REM sleep behavior disorder; E11.9 Type 2 diabetes mellitus without complications; L93.0 Discoid lupus erythematosus; J45.909 Unspecified asthma, uncomplicated; K21.9 Gastro-esophageal reflux disease without esophagitis; F31.9 Bipolar disorder, unspecified; F41.9 Anxiety disorder, unspecified; E03.9 Hypothyroidism, unspecified; F43.10 Post-traumatic stress disorder, unspecified; Z86.718 Personal history of other venous thrombosis and embolism; Z86.73 Personal history of transient ischemic attack (TIA), and cerebral infarction without residual deficits; Z86.39 Personal history of other endocrine, nutritional and metabolic disease; Z86.69 Personal history of other diseases of the nervous system and sense organs; Z99.89 Dependence on other enabling machines and devices; Z87.42 Personal history of other diseases of the female genital tract; Z86.2 Personal history of diseases of the blood and blood-forming organs and certain disorders involving the immune mechanism; Z79.890 Hormone replacement therapy; Z79.51 Long term (current) use of inhaled steroids; Z79.84 Long term (current) use of oral hypoglycemic drugs; Z79.01 Long term (current) use of anticoagulants; Z79.899 Other long term (current) drug therapy; Z79.85 Long-term (current) use of injectable non-insulin antidiabetic drugs; Z91.010 Allergy to peanuts; Z91.048 Other nonmedicinal substance allergy status; Z88.2 Allergy status to sulfonamides; Z91.018 Allergy to other foods; Z88.8 Allergy status to other drugs, medicaments and biological substances; Z88.1 Allergy status to other antibiotic agents
CPT/HCPCS: 99212

== ENCOUNTER → 2024-06-14 | Day surgery (SDC) | payer MEDICARE, OTHER ==
[2024-06-13 10:26] VITALS: BMI 40.9
[2024-06-14 11:57] VITALS: BP 113/68; PULSE 79; RESP 16; TEMP 98.8
[2024-06-14 12:20] LABS: African American GFR (CKD) >90 (>60 ml/min/1.73 sqM); Anion Gap 8 mmol/L; Blood Urea Nitrogen 16 mg/dL (7-17); Calcium 10.4 mg/dL (8.4-10.2); Carbon Dioxide 22 mmol/L (22-30); Chloride 109 mmol/L (98-107); Glucose 167 mg/dL (74-99); Non-African American GFR(CKD) >90 (>60 ml/min/1.73 sqM); Potassium 4.5 mmol/L (3.5-5.1); Sodium 139 mmol/L (137-145)
[2024-06-14] MEDS: LIDOCAINE 1% INJ 10MG/ML (20 ML MDV) SQ ONE (13:02)
--- NOTE | 2024-06-14 14:48 | IR ---
EXAMINATION TYPE: IR cvc insert >=5 years DATE OF EXAM: 06/14/2024 COMPARISON: NONE HISTORY: Fluoroscopy time. Fluoroscopy was provided to the referring clinician.
== END ==
LOC: CATHCVL 11:08
PROVIDERS: ATTEND Surgery
DX: E88.40 Mitochondrial metabolism disorder, unspecified (principal)
CPT/HCPCS: 36573; 80048; 81025; C1751; C1769 ×2; J2001

== ENCOUNTER → 2025-03-05 | Outpatient (CLI) | payer MEDICARE, OTHER ==
--- NOTE | 2025-03-05 12:01 | FL ---
EXAMINATION TYPE: FL sniff test without CXR DATE OF EXAM: 03/05/2025 COMPARISON: Chest CT December 27, 2024 and older x-rays and CTs HISTORY: Unspecified asthma. Shortness of breath with underlying neuromuscular condition. TECHNIQUE: Fluoroscopic-assisted sniff test FINDINGS: A total of 17 seconds of fluoroscopic time was utilized during the procedure and 19 spot i mages was acquired. Total dose area product (DAP) in uGy*m?, mGy*cm? (or similar): 1738.14. During real time scanning there is satisfactory symmetric downward motion of the hemidiaphragms on in spiration and satisfactory symmetric upward motion on expiration. IMPRESSION: No fluoroscopic evidence for hemidiaphragm paralysis. [facility], , 03/05/2025 11:59 AM
== END | disposition home or self-care (01) ==
LOC: RADFLMAIN 08:56
PROVIDERS: ATTEND Internal Medicine
DX: J45.909 Unspecified asthma, uncomplicated (principal)
CPT/HCPCS: 76000